=== PATIENT | female | born 1960 | race Caucasian/White ===

== ENCOUNTER → 2020-01-02 08:54 | Outpatient (BNVA) | payer MEDICARE, MEDICAID, SELFPAY | PROVIDERS: PCP Internal Medicine Geriatric Medicine; Visit Provider Hospitalist | DX: J44.9 Chronic obstructive pulmonary disease, unspecified (principal); R91.8 Other nonspecific abnormal finding of lung field; J18.9 Pneumonia, unspecified organism | CPT/HCPCS: 99214 ==

== ENCOUNTER → 2020-01-12 09:45 | Outpatient (REF) | payer MEDICARE, MEDICAID, SELFPAY | LOC: HO.SL 09:45 | PROVIDERS: PCP Internal Medicine Geriatric Medicine; Visit Provider Hospitalist | DX: G47.33 Obstructive sleep apnea (adult) (pediatric) (principal) | CPT/HCPCS: 95806 ==

== ENCOUNTER → 2020-02-27 14:05 | Outpatient (BNVA) | payer MEDICARE, MEDICAID, SELFPAY | PROVIDERS: PCP Internal Medicine Geriatric Medicine; Referring Provider Internal Medicine Geriatric Medicine; Visit Provider Internal Medicine Endocrinology, Diabetes & Metabolism | DX: E05.90 Thyrotoxicosis, unspecified without thyrotoxic crisis or storm (principal); E04.9 Nontoxic goiter, unspecified; Z87.891 Personal history of nicotine dependence | CPT/HCPCS: 99202 ==

== ENCOUNTER 2020-03-06 12:13 | Outpatient (REF) | payer MEDICARE, MEDICAID, SELFPAY ==
--- NOTE | 2020-03-06 | US_ITS ---
EXAMINATION: US THYROID CLINICAL INFORMATION: Nontoxic goiter. COMPARISON: CT chest 12/14/2019 TECHNIQUE: Linear transducer hernández-scale and color Doppler examination with attention to the region of the thyroid. FINDINGS: SIZE: Measurements of the thyroid lobes and nodules are given in sagittal, anteroposterior and transverse dimensions respectively. Right Thyroid Lobe: 5.4 x 2.4 x 3.4 cm, volume 23.0 mL. Parenchyma: The gland echotexture is heterogeneous. Thyroid vascularity is normal. Left Thyroid Lobe: 5.7 x 1.9 x 2.8 cm, volume 15.9 mL. Parenchyma: The gland echotexture is heterogeneous. Thyroid vascularity is normal. Isthmus: 0.5 cm in maximum AP dimension. RIGHT THYROID LOBE: There is 1 nodule seen. 1. Location: Mid pole. Size: 0.4 x 0.3 x 0.4 cm. Nodule characteristics: Hypoechoic, smoothly marginated with no intranodular flow. 2. Location: Mid pole. Size: 0.6 x 0.5 x 0.6 cm. Nodule characteristics: Hypoechoic, smoothly marginated with intranodular flow. 3. Location: Lower pole. Size: 0.3 x 0.3 x 0.4 cm. Nodule characteristics: Hypoechoic, smoothly marginated with no intranodular flow. ISTHMUS: No nodules. LEFT THYROID LOBE: There are 4 nodules seen. 1. Location: Upper pole. Size: 0.6 x 0.4 x 0.6 cm. Nodule characteristics: Hypoechoic, smoothly marginated with no intranodular flow. 2. Location: Lower pole. Size: 0.7 x 0.6 x 0.8 cm. Nodule characteristics: Hypoechoic, smoothly marginated with intranodular flow. 3. Location: Lower pole. Size: 0.7 x 0.6 x 0.8 cm. Nodule characteristics: Hypoechoic, smoothly marginated with no intranodular flow. 4. Location: Lower pole. Size: 0.9 x 0.6 x 0.8 cm. Nodule characteristics: Hypoechoic, smoothly marginated with no intranodular flow. NODES: No lymphadenopathy is seen in the tissue surrounding the thyroid gland. US/US thyroid IMPRESSION: Subcentimeter bilateral thyroid nodules, nonsuspicious. Thyromegaly likely consistent with multinodular goiter.
[2020-03-06 13:27] LABS: MANUAL DIFF FLAG NO
[2020-03-06 13:30] LABS: Basophils Absolute Auto 0.1 X10*3/uL (0.0-0.2); Basophils Percent Auto 0.4 % (0-2); Eosinophils Absolute Auto 0.1 X10*3/uL (0.0-0.4); Eosinophils Percent Auto 0.4 % (0-4); Hematocrit 48.5 % (37-47); Hemoglobin 15.6 g/dl (12.0-16.0); Imm Gran Pct Auto 0.6 % (0.0-0.4); Lymphocytes Absolute Auto 2.4 X10*3/uL (1.2-4.9); Lymphocytes Percent Auto 14.1 % (20-40); Mean Corpuscular HGB Conc 32.2 g/dl (31.0-35.0); Mean Corpuscular Hemoglobin 27.7 pg (27.0-33.0); Mean Corpuscular Volume 86.1 fL (80-98); Mean Platelet Volume 10.6 fL (9.4-12.3); Neutrophils Absolute Auto 13.1 X10*3/uL (2.0-8.3); Neutrophils Percent Auto 78.5 % (45-73); Platelet Count 334 X10*3/uL (160-400); Red Blood Count 5.63 X10*6/uL (4.20-5.50); Red Cell Distribution Width 12.9 % (11.0-16.0); White Blood Count 16.7 X10*3/uL (4.8-10.8)
[2020-03-06 14:06] LABS: Alanine Aminotransferase 31 U/L (0-31); Albumin Level 3.9 g/dL (3.5-5.0); Alkaline Phosphatase 99 U/L (39-117); Aspartate Amino Transferase 16 U/L (5-31); Bilirubin Direct 0.3 mg/dL (0.0-0.5); Bilirubin Total 0.6 mg/dL (0.0-1.0); Total Protein 6.8 g/dL (6.5-8.0)
[2020-03-06 14:27] LABS: Free T4 (Free Thyroxine) 1.83 ng/dL (0.71-1.85); Thyroid Stimulating Hormone 0.01 uIU/mL (0.32-4.0); Vitamin D 25-OH Total 9.7 ng/mL (>30)
[2020-03-08 01:33] LABS: Thyroglobulin Antibodies <1 IU/mL (< or = 1); Thyroid Peroxidase Antibodies <1 IU/mL (<9)
[2020-03-08 17:32] LABS: Triiodothyronine T3 Total 145 ng/dL (76-181)
[2020-03-12 14:52] LABS: Thyroid Stimulating Immunoglob <89 % baseline (<140)
[2020-03-14 01:03] LABS: Thyrotropin Receptor Antibody <1.00 IU/L (<=2.00)
== END 2020-03-06 12:14 | disposition home or self-care (01) ==
LOC: HO.US 12:13
PROVIDERS: Absent Provider Internal Medicine Endocrinology, Diabetes & Metabolism; PCP Internal Medicine Geriatric Medicine; Visit Provider Internal Medicine Geriatric Medicine
DX: E04.9 Nontoxic goiter, unspecified (principal); E05.90 Thyrotoxicosis, unspecified without thyrotoxic crisis or storm
CPT/HCPCS: 36415; 76536; 80076; 82306; 83520; 84439; 84443; 84445; 84480; 85025; 86376; 86800

== ENCOUNTER → 2020-03-09 09:45 | Outpatient (BNVA) | payer MEDICARE, MEDICAID, SELFPAY | PROVIDERS: PCP Internal Medicine Geriatric Medicine; Visit Provider Hospitalist | DX: J44.9 Chronic obstructive pulmonary disease, unspecified (principal); J18.9 Pneumonia, unspecified organism; R91.8 Other nonspecific abnormal finding of lung field | CPT/HCPCS: 99212 ==

== ENCOUNTER 2020-03-12 10:08 | Outpatient (REF) | payer MEDICARE, MEDICAID, SELFPAY ==
--- NOTE | 2020-03-12 10:30 | MR_ITS ---
MR LUMBAR SPINE WITHOUT CONTRAST CLINICAL INFORMATION: Radiculopathy of the left leg. COMPARISON: Lumbar spine MRI 05/11/2012 could not be retrieved from the archive at the time of dictation. TECHNIQUE: MRI of the lumbar spine was obtained using routine sequences without contrast. FINDINGS: There are 5 nonrib-bearing lumbar-type vertebral bodies. Lumbar alignment is normal. The vertebral body heights are maintained. There is moderate to severe disc volume loss at L5-S1 and the remaining disc volumes are preserved. There is disc desiccation at all lumbar levels with the exception of L3 on L4. There Modic type I endplate signal changes at L5-S1. There is no additional bone marrow edema. There are no acute fractures. Conus terminates at the L2 level. Bilateral perinephric stranding. Right-sided parapelvic cysts. Shallow central disc protrusions at T11-T12 and T12-L1 mildly narrow the central canal. L1-L2: Small annular disc bulge and mild bilateral facet arthropathy. No central canal stenosis and no foraminal stenosis. L2-L3: Diffuse annular disc bulge and mild to moderate bilateral facet arthropathy. No central canal stenosis. Mild foraminal encroachment bilaterally. L3-L4: There is a annular disc bulge with a superimposed left paracentral disc protrusion that compresses the traversing left L4 nerve root within the left subarticular zone. Mild narrowing of the central canal and mild bilateral foraminal encroachment. L4-L5: Broad-based left paracentral disc protrusion results in posterior deflection of the traversing left L5 nerve root within the left subarticular zone. Background annular disc bulge. Dorsal annular fissure. Mild narrowing of the central canal. Mild to moderate left and mild right foraminal stenosis L5-S1: Broad-based right paracentral disc protrusion compresses the traversing right greater than left S1 nerve roots within the subarticular zones disc osteophyte and facet arthropathy result in severe left and mild to moderate right foraminal stenosis with compression of the exiting left L5 nerve root. 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 MR/MR lumbar spine wo con IMPRESSION: - At L3-L4, a left paracentral disc protrusion compresses the traversing left L4 nerve root within the left subarticular zone. - At L4-L5, a left paracentral disc protrusion results in posterior deflection of the traversing left L5 nerve root within the left subarticular zone. Dorsal annular fissure. - At L5-S1, a broad-based right paracentral disc protrusion compresses the traversing right greater than left S1 nerve roots within the subarticular zones and multifactorial degenerative changes result in severe left and mild to moderate right foraminal stenosis with compression of the exiting left L5 nerve root. 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 Modic type I endplate signal changes at this level.
== END 2020-03-12 10:09 | disposition home or self-care (01) ==
LOC: HO.MRI 10:08
PROVIDERS: Visit Provider Internal Medicine Geriatric Medicine
DX: M54.10 Radiculopathy, site unspecified (principal); M79.605 Pain in left leg
CPT/HCPCS: 72148

== ENCOUNTER → 2020-04-27 10:07 | Outpatient (BNVA) | payer MEDICARE, MEDICAID, SELFPAY | PROVIDERS: PCP Internal Medicine Geriatric Medicine; Visit Provider Internal Medicine Endocrinology, Diabetes & Metabolism | DX: E05.90 Thyrotoxicosis, unspecified without thyrotoxic crisis or storm (principal); E04.2 Nontoxic multinodular goiter; E55.9 Vitamin D deficiency, unspecified | CPT/HCPCS: 99212 ==

== ENCOUNTER 2020-04-27 11:01 | Outpatient (REF) | payer MEDICARE, MEDICAID, SELFPAY ==
[2020-04-27 15:02] LABS: Free T4 (Free Thyroxine) 1.57 ng/dL (0.71-1.85); Thyroid Stimulating Hormone 0.01 uIU/mL (0.32-4.0)
[2020-04-28 09:02] LABS: Triiodothyronine T3 Total 160 ng/dL (76-181)
== END 2020-04-27 11:02 | disposition home or self-care (01) ==
LOC: HO.10HDL 11:01
PROVIDERS: Visit Provider Internal Medicine Endocrinology, Diabetes & Metabolism
DX: E05.90 Thyrotoxicosis, unspecified without thyrotoxic crisis or storm (principal); E04.9 Nontoxic goiter, unspecified
CPT/HCPCS: 36415; 84439; 84443; 84480; 99212

== ENCOUNTER → 2020-05-09 10:04 | Outpatient (REF) | payer MEDICARE, MEDICAID, SELFPAY ==
--- NOTE | ~2020-05-09 | NM_ITS ---
EXAMINATION: NM THYROID UPTAKE AND SCAN CLINICAL INFORMATION: Thyrotoxicosis, unspecified. COMPARISON: Thyroid ultrasound dated 03/06/2020 TECHNIQUE: Following the oral administration of 269 microcuries of I-123 sodium iodide, thyroid uptake was performed and expressed as a percentage of the administrated dose. Gamma scintillation camera images of the thyroid in the anterior and right and left anterior oblique views were obtained using a pinhole collimator following the administration of 10 mCi Tc-99m pertechnetate. FINDINGS: The uptake is 3.7% at 2 hours and 9.5% at 24 hours. Imaging of the gland demonstrates heterogeneous pertechnetate uptake. Some focal excess in the upper pole of the right. The iodine imaging also demonstrates a heterogeneous appearance which matches the technetium with the exception of the upper pole right. No cold defect but no convincing evidence for excess activity. NM/NM thyroid w uptake IMPRESSION: Normal uptake at 2 hours. Borderline low/normal uptake at 24 hours. Heterogeneous appearance to the gland as described above which may well correlate with multinodular gland described on ultrasound versus a state of thyroiditis Given the clinical indication, findings may be consistent with an element of subacute or painless thyroiditis, factitious thyroiditis, medication etiology such as amiodarone, or early Otilia's disease.
== END ==
LOC: HO.NUCMED 10:04
PROVIDERS: Visit Provider Internal Medicine Endocrinology, Diabetes & Metabolism
DX: E05.90 Thyrotoxicosis, unspecified without thyrotoxic crisis or storm (principal); E04.9 Nontoxic goiter, unspecified
CPT/HCPCS: 78014; A9512; A9516

== ENCOUNTER 2020-05-24 21:41 | Emergency (ER) | payer MEDICARE, MEDICAID, SELFPAY ==
--- NOTE | ~2020-05-24 | XR_ITS ---
EXAMINATION: XR CHEST CLINICAL INFORMATION: Chest pain COMPARISON: Chest radiograph 12/24/[address] 12/14/2019 TECHNIQUE: 2 views of the chest were obtained. FINDINGS: No significant abnormality is noted involving the heart, lungs, mediastinum, bony thorax or soft tissues. A prominent epicardial fat pad is present. XR/XR chest 2V IMPRESSION: Normal exam
[2020-05-24 21:45] VITALS: BP 151/83; PULSE 101; RESP 20; TEMP 36.9; O2SAT 97; BMI 29.9
--- NOTE | 2020-05-24 22:39 | ECG_ITS ---
Test Reason : CP Blood Pressure : / mmHG Vent. Rate : 101 BPM Atrial Rate : 101 BPM P-R Int : 146 ms QRS Dur : 092 ms QT Int : 342 ms P-R-T Axes : 069 022 036 degrees QTc Int : 443 ms Sinus tachycardia Incomplete right bundle branch block Borderline ECG When compared with ECG of 24-DEC-2019 05:30, No significant change was found Referred By: Kely June Electronically Signed By:DAVI KEEN MD
--- NOTE | 2020-05-24 23:53 | ED_ITS ---
HPI - Chest Pain General Chief Complaint: Chest Pain Stated Complaint: Chest pain Time Seen by Provider: 05/24/20 22:38 Source: patient Mode of arrival: ambulatory History of Present Illness HPI narrative: This is a 59-year-old female who states that yesterday she was experiencing some substernal discomfort that was worse with laying back and then proceeded to have an isolated episode nonbloody vomiting but states that since that time her appetite has been decreased. She states that she had sleeps with 3 pillows behind her last night due to the discomfort she experienced on laying back. Otherwise, she denies fevers, chills, shortness of breath and states that the chest pain now radiates along the left lower diaphragmatic area into her back and up into her left shoulder. This is not been associated with any diarrhea, urinary symptoms. Related Data Home Medications Medication Instructions Recorded Confirmed aspirin 81 mg tablet,delayed 81 mg PO DAILY 12/24/19 04/27/20 release atorvastatin 80 mg tablet 80 mg PO BEDTIME 12/24/19 04/27/20 carvedilol 6.25 mg tablet 6.25 mg PO BID 12/24/19 04/27/20 cetirizine 10 mg tablet 10 mg PO DAILY 12/24/19 04/27/20 cyclobenzaprine 5 mg tablet 5 mg PO TID PRN 12/24/19 04/27/20 gabapentin 100 mg capsule 100 mg PO BEDTIME 12/24/19 04/27/20 ipratropium 0.5 mg-albuterol 3 mg ml INHALATION QID 12/24/19 04/27/20 (2.5 mg base)/3 mL nebulization soln montelukast 10 mg tablet 10 mg PO BEDTIME 12/24/19 04/27/20 omeprazole 20 mg capsule,delayed 20 mg PO BID 12/24/19 04/27/20 release oxycodone-acetaminophen 7.5 mg-325 1 tab PO TID PRN 12/24/19 04/27/20 mg tablet pen needle, diabetic 32 gauge x #50 ea 12/24/19 04/27/20 prednisone 5 mg tablet 5 mg PO DAILY 12/24/19 04/27/20 albuterol sulfate 90 mcg/actuation 2 puff INHALATION Q4-6H PRN 01/02/20 04/27/20 aerosol inhaler dulaglutide 1.5 mg/0.5 mL 1.5 mg SUBCUT QWEEK 01/02/20 04/27/20 subcutaneous pen injector insulin aspart U-100 100 unit/mL See Rx Instructions SUBCUT TID ml 01/02/20 04/27/20 (3 mL) subcutaneous pen insulin glargine 100 unit/mL (3 35 unit SUBCUT BID ml 01/02/20 04/27/20 mL) subcutaneous pen ipratropium 20 mcg-albuterol 100 2 puff INHALATION QID g 01/02/20 04/27/20 mcg/actuation mist for inhalation lactulose 10 gram/15 mL oral 15 ml PO DAILY PRN 01/02/20 04/27/20 solution blood sugar diagnostic #10 ea 02/27/20 04/27/20 naproxen 500 mg tablet 500 mg PO BID 03/09/20 04/27/20 budesonide 0.5 mg/2 mL suspension mg INHALATION DAILY 04/27/20 04/27/20 for nebulization Previous Rx's Medication Instructions Recorded fluticasone fur. 100 mcg-umeclid 1 inh INHALATION DAILY 30 Days #60 01/02/20 62.5 mcg-vilant 25 mcg ea inhalat.powder trazodone 50 mg tablet 50 mg PO BEDTIME PRN #30 tab 01/02/20 roflumilast 500 mcg tablet 500 mcg PO DAILY 30 Days #30 tab 01/05/20 umeclidinium 62.5 mcg-vilanterol 1 inh INHALATION DAILY #60 ea 01/11/20 25 mcg/actuation powdr for inhalation fluticasone fur. 200 mcg-umeclid 1 inh INHALATION DAILY 30 Days #60 04/23/20 62.5 mcg-vilant 25 mcg ea inhalat.powder cholecalciferol (vitamin D3) 50 50 mcg PO DAILY 90 Days #90 cap 04/27/20 mcg (2,000 unit) capsule methimazole 5 mg tablet 5 mg PO DAILY 30 Days #30 tab 04/27/20 Allergies Allergy/AdvReac Type Severity Reaction Status Date / Time HANK Inhibitors Allergy Severe ANGIO Verified 03/09/20 10:03 [HANK INHIBITORS] EDEMA enalapril Allergy Severe Anaphylaxis Verified 03/09/20 10:03 erythromycin base Allergy Severe HIVES ALL Verified 12/11/20 10:03 [ERYTHROMYCIN BASE] OVER hydromorphone [From DILAUDID] AdvReac Severe TINGLING, Verified 03/09/20 10:03 PT DOES NOT LIKE THE FEELING MED GIVES HER Review of Systems Review of Systems: Pertinent positives and negatives as stated in HPI 10 point review systems is otherwise negative. [facility] Past Medical History Source: nursing notes reviewed Medical History Atelectasis COPD (chronic obstructive pulmonary disease) Goiter Multinodular goiter Pneumonia Pulmonary nodules Subclinical hyperthyroidism Vitamin D deficiency Surgical History History of cholecystectomy History of tonsillectomy History of ureterostomy S/P lumpectomy, right breast Family History Family History Father No problems noted. Mother No problems noted. Paternal Aunt Diabetes Social History Social History Smoking Status: Former smoker Tobacco Type: Cigarette Advance Directives: No Physical Exam Vital Signs: Vital Signs: Last Vital Signs Temp 98.5 F 05/24/20 21:45 Pulse 84 05/25/20 01:16 Resp 20 05/25/20 01:16 BP 117/50 L 05/25/20 01:16 Pulse Ox 96 05/25/20 01:16 Body Mass Index 29.9 VITAL SIGNS: Reviewed. GENERAL: Well developed, well nourished, in no acute distress. HEAD: Normocephalic/atraumatic, EYES: PERRLA, EOMI NOSE: Nares patent bilateral OROPHARYNX: no oral lesions noted, posterior pharynx clear NECK: Supple, no adenopathy LUNGS: Normal breath sounds. No adventitious sounds or accessory muscle use. SpO2<97> CARDIOVASCULAR: Regular rate and rhythm without noted murmurs, no JVD or lower extremity edema. ABDOMEN: Soft, non-tender, non-distended with bowel sounds. SKIN: Inspection of the skin reveals no rashes NEUROLOGIC: Alert and oriented x 4. Course Course Course Narrative: This is a 59-year-old female with history and clinical presentation suggestive of possible costochondritis, but patient does have hist ory goiter which may be contributing to some of her symptoms and less likely considered to be pericarditis and will rule out other cardiopulmonary etiologies. Provided patient with Tylenol and GI cocktail. Review of all investigations shows mild leukocytosis likely secondary to patient's recent steroid injection for sciatica as chest x-ray and urinalysis are negative for evidence of infection and abdominal exam is benign. Low troponin is noted to be above normal this is consistent with prior troponin level when compared to 11/2019 and there are no acute changes on EKG. The latter taken in conjunction with patient's history lead to low clinical suspicion for cardiac etiology. All results and findings were discussed with patient at bedside. On re-evaluation patient's symptoms have completely resolved after receiving Tylenol and GI cocktail. 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 MDM - Chest Pain Lab Data Result diagrams: 05/25/20 00:07 05/25/20 00:07 Labs: Lab Results 05/25/20 05/25/20 05/25/20 Range/Units 00:07 00:07 00:07 WBC 12.9 H (4.8-10.8) X10*3/uL RBC 5.28 (4.20-5.50) X10*6/uL Hgb 14.9 (12.0-16.0) g/dl Hct 44.9 (37-47) % MCV 85.0 (80-98) fL MCH 28.2 (27.0-33.0) pg MCHC 33.2 (31.0-35.0) g/dl RDW 13.4 (11.0-16.0) % Plt Count 230 D (160-400) X10*3/uL MPV 10.0 (9.4-12.3) fL Immature Gran % (Auto) 0.4 (0.0-0.4) % Neut % (Auto) 57.1 (45-73) % Lymph % (Auto) 32.9 (20-40) % Burleigh % (Auto) 6.9 (2-11) % Eos % (Auto) 2.2 (0-4) % Baso % (Auto) 0.5 (0-2) % Lymph # (Auto) 4.3 (1.2-4.9) X10*3/uL Burleigh # (Auto) 0.9 (0.1-1.2) X10*3/uL Eos # (Auto) 0.3 (0.0-0.4) X10*3/uL Baso # (Auto) 0.1 (0.0-0.2) X10*3/uL Abs Immat Gran (auto) 0.05 H (0.00-0.03) X10*3/uL Absolute Neuts (auto) 7.4 (2.0-8.3) X10*3/uL Absolute Nucleated RBC 0.000 (0.0-0.012) X10*3/uL Nucleated RBC % (auto) 0.0 (0.0-0.2) /100WBC Sodium 144 (135-145) mmol/L Potassium 4.2 (3.3-5.1) mmol/L Chloride 108 (96-108) mmol/L Carbon Dioxide 25 (22-29) mmol/L Anion Gap 15 (12-20) BUN 14 (9-16) mg/dL Creatinine 0.78 (0.5-1.4) mg/dL Estim Creat Clear Calc 80.9 Estimated GFR > 60 Random Glucose 208 H (60-115) mg/dL Calcium 9.2 (8.4-10.2) mg/dL Total Bilirubin 0.7 (0.0-1.0) mg/dL AST 13 (5-31) U/L ALT 23 (0-31) U/L Alkaline Phosphatase 78 D (39-117) U/L Troponin I High Sens 6.2 (<3.5-17.0) ng/L Total Protein 6.4 L (6.5-8.0) g/dL Albumin 3.7 (3.5-5.0) g/dL Lipase (8-78) U/L Urine Color Urine Appearance Urine pH (5.0-8.0) Ur Specific Ullin (1.005-1.025) Urine Protein (NEG-TRACE) MG/DL Urine Glucose (UA) (NEG) MG/DL Urine Ketones (NEG) MG/DL Urine Blood (NEG) Urine Nitrite (NEG) Ur Leukocyte Esterase (NEG) Urine RBC (0) /HPF Urine WBC (0-4) /HPF Ur Squamous Epith Cells /LPF Calcium Oxalate Crystal /LPF Uric Acid Crystals /LPF Urine Bacteria /LPF Urine Mucus /LPF 05/25/20 05/25/20 Range/Units 00:07 01:36 WBC (4.8-10.8) X10*3/uL RBC (4.20-5.50) X10*6/uL Hgb (12.0-16.0) g/dl Hct (37-47) % MCV (80-98) fL MCH (27.0-33.0) pg MCHC (31.0-35.0) g/dl RDW (11.0-16.0) % Plt Count (160-400) X10*3/uL MPV (9.4-12.3) fL Immature Gran % (Auto) (0.0-0.4) % Neut % (Auto) (45-73) % Lymph % (Auto) (20-40) % Burleigh % (Auto) (2-11) % Eos % (Auto) (0-4) % Baso % (Auto) (0-2) % Lymph # (Auto) (1.2-4.9) X10*3/uL [place]leigh # (Auto) (0.1-1.2) X10*3/uL Eos # (Auto) (0.0-0.4) X10*3/uL Baso # (Auto) (0.0-0.2) X10*3/uL Abs Immat Gran (auto) (0.00-0.03) X10*3/uL Absolute Neuts (auto) (2.0-8.3) X10*3/uL Absolute Nucleated RBC (0.0-0.012) X10*3/uL Nucleated RBC % (auto) (0.0-0.2) /100WBC Sodium (135-145) mmol/L Potassium (3.3-5.1) mmol/L Chloride (96-108) mmol/L Carbon Dioxide (22-29) mmol/L Anion Gap (12-20) BUN (9-16) mg/dL Creatinine (0.5-1.4) mg/dL Estim Creat Clear Calc Estimated GFR Random Glucose (60-115) mg/dL Calcium (8.4-10.2) mg/dL Total Bilirubin (0.0-1.0) mg/dL AST (5-31) U/L ALT (0-31) U/L Alkaline Phosphatase (39-117) U/L Troponin I High Sens (<3.5-17.0) ng/L Total Protein (6.5-8.0) g/dL Albumin (3.5-5.0) g/dL Lipase 30 (8-78) U/L Urine Color YELLOW Urine Appearance CLEAR Urine pH 5.5 (5.0-8.0) Ur Specific Ullin >= 1.030 H (1.005-1.025) Urine Protein NEG (NEG-TRACE) MG/DL Urine Glucose (UA) 500 H (NEG) MG/DL Urine Ketones NEG (NEG) MG/DL Urine Blood 2+ H (NEG) Urine Nitrite NEG (NEG) Ur Leukocyte Esterase NEG (NEG) Urine RBC 0-2 (0) /HPF Urine WBC 1-4 (0-4) /HPF Ur Squamous Epith Cells 3+ /LPF Calcium Oxalate Crystal TRACE /LPF Uric Acid Crystals TRACE /LPF Urine Bacteria TRACE /LPF Urine Mucus 1+ /LPF Discharge Plan Discharge Clinical Impression: Atypical chest pain Gastroesophageal reflux disease Qualifiers: Esophagitis presence: esophagitis presence not specified Qualified Code(s): K21.9 - Gastro-esophageal reflux disease without esophagitis Patient Disposition: Home, Self-Care Instructions: Chest Pain (ED), Diet for Stomach Ulcers and Gastritis (ED), Gastroesophageal Reflux Disease (ED) Additional Instructions: 1. Resume all home medications as prescribed. 2. Recommend supplementing current omeprazole dosing schedule with Maalox taken prior to meals. 3. Please follow-up with Dr. Kaplan for re-evaluation regarding your GERD. 4. Please follow-up with your primary care provider as well for re-evaluation. To not hesitate to return to the emergency department for any acute worsening of her symptoms or if more concerning symptoms occur such as shortness of breath, fever, chills. Prescriptions: No Action Daliresp 500 mcg tablet 500 mcg PO DAILY 30 Days Qty: 30 RF: 11 Anoro Ellipta 62.5-25 mcg/actuation blister with device 1 inh inhalation DAILY Qty: 60 RF: 11 Trelegy Ellipta 200-62.5-25 mcg blister with device 1 inh inhalation DAILY 30 Days Qty: 60 RF: 12 methimazole 5 mg tablet 5 mg PO DAILY 30 Days Qty: 30 RF: 5 (DME) FreeStyle Lite Strips Strip See Rx Instructions ea Not Applicable TID Qty: 10 RF: 0 cholecalciferol (vitamin D3) 50 mcg (2,000 unit) capsule 50 mcg PO DAILY 90 Days Qty: 90 RF: 1 Trulicity 1.5 mg/0.5 mL pen injector 1.5 mg subcut QWEEK RF: 0 insulin aspart U-100 [Novolog Flexpen U-100 Insulin] 100 unit/mL (3 mL) insulin pen See Rx Instructions subcut TID RF: 0 Lantus Solostar U-100 Insulin 100 unit/mL (3 mL) insulin pen 35 unit subcut BID RF: 0 lactulose 10 gram/15 mL solution 15 ml PO DAILY PRN (Reason: constipation) RF: 0 albuterol sulfate [ProAir HFA] 90 mcg/actuation HFA aerosol inhaler 2 puff inhalation Q4-6H PRNRF: 0 Combivent Respimat 20-100 mcg/actuation mist 2 puff inhalation QID RF: 0 Trelegy Ellipta 100-62.5-25 mcg blister with device 1 inh inhalation DAILY 30 Days Qty: 60 RF: 11 trazodone 50 mg tablet 50 mg PO BEDTIME PRN (Reason: sleep) Qty: 30 RF: 11 oxycodone-acetaminophen 7.5-325 mg tablet 1 tab PO TID PRNRF: 0 omeprazole 20 mg capsule,delayed release(DR/EC) 20 mg PO BID RF: 0 aspirin 81 mg tablet,delayed release (DR/EC) 81 mg PO DAILY RF: 0 cyclobenzaprine 5 mg tablet 5 mg PO TID PRNRF: 0 prednisone 5 mg tablet 5 mg PO DAILY RF: 0 carvedilol 6.25 mg tablet 6.25 mg PO BID RF: 0 gabapentin 100 mg capsule 100 mg PO BEDTIME RF: 0 atorvastatin 80 mg tablet 80 mg PO BEDTIME RF: 0 (DME) pen needle, diabetic 32 gauge x 5/32 needle See Rx Instructions ea .ROUTE .MEDSUPPLY Qty: 50 RF: 0 ipratropium-albuterol 0.5 mg-3 mg(2.5 mg base)/3 mL solution for nebulization inhalation QID RF: 0 montelukast 10 mg tablet 10 mg PO BEDTIME RF: 0 cetirizine 10 mg tablet 10 mg PO DAILY RF: 0 budesonide 0.5 mg/2 mL suspension for nebulization inhalation DAILY RF: 0 naproxen 500 mg tablet 500 mg PO BID RF: 0 Referrals: Bobby David MD [Primary Care Provider] - 2 days (Re-evaluation outpatient management after seen in the emergency department and suspect patient experienced acute GERD symptoms. Recommended that patient follow-up with GI as well.)
[2020-05-25 00:14] LABS: Basophils Absolute Auto 0.1 X10*3/uL (0.0-0.2); Basophils Percent Auto 0.5 % (0-2); Eosinophils Absolute Auto 0.3 X10*3/uL (0.0-0.4); Eosinophils Percent Auto 2.2 % (0-4); Hematocrit 44.9 % (37-47); Hemoglobin 14.9 g/dl (12.0-16.0); Imm Gran Abs Auto 0.05 X10*3/uL (0.00-0.03); Imm Gran Pct Auto 0.4 % (0.0-0.4); Lymphocytes Absolute Auto 4.3 X10*3/uL (1.2-4.9); Lymphocytes Percent Auto 32.9 % (20-40); MANUAL DIFF FLAG NO; Mean Corpuscular HGB Conc 33.2 g/dl (31.0-35.0); Mean Corpuscular Hemoglobin 28.2 pg (27.0-33.0); Monocytes Absolute Auto 0.9 X10*3/uL (0.1-1.2); Monocytes Percent Auto 6.9 % (2-11); Neutrophils Absolute Auto 7.4 X10*3/uL (2.0-8.3); Neutrophils Percent Auto 57.1 % (45-73); Platelet Count 230 X10*3/uL (160-400); Red Blood Count 5.28 X10*6/uL (4.20-5.50); Red Cell Distribution Width 13.4 % (11.0-16.0); White Blood Count 12.9 X10*3/uL (4.8-10.8)
[2020-05-25 00:38] LABS: Lipase 30 U/L (8-78)
[2020-05-25 00:43] LABS: Troponin-I High Sensitivity 6.2 ng/L (<3.5-17.0)
[2020-05-25 00:49] LABS: Alanine Aminotransferase 23 U/L (0-31); Albumin Level 3.7 g/dL (3.5-5.0); Alkaline Phosphatase 78 U/L (39-117); Anion Gap 15 (12-20); Aspartate Amino Transferase 13 U/L (5-31); Bilirubin Total 0.7 mg/dL (0.0-1.0); Blood Urea Nitrogen 14 mg/dL (9-16); Calcium 9.2 mg/dL (8.4-10.2); Carbon Dioxide 25 mmol/L (22-29); Chloride 108 mmol/L (96-108); Creatinine Clr Calc Pharmacy 80.9; Estimated Glomerular Filt Rate > 60; Glucose Random 208 mg/dL (60-115); Potassium 4.2 mmol/L (3.3-5.1); Sodium 144 mmol/L (135-145); Total Protein 6.4 g/dL (6.5-8.0)
[2020-05-25 01:16] VITALS: BP 117/50; PULSE 84; RESP 20; O2SAT 96
[2020-05-25] MEDS: Acetaminophen 325 MG TABLET 975 MG PO (01:31)
[2020-05-25] MEDS: Magnesium Hydrox/Alum Hydrox 30 ML ORAL.SUSP PO (01:33)
[2020-05-25] MEDS: Lidocaine HCl Viscous 2 % 15 ML SOLUTION 10 ML MUCOUS MEM (01:33)
[2020-05-25 01:58] LABS: Glucose Urine UA 500 MG/DL (NEG); Leukocyte Esterase Urine NEG (NEG); Nitrite Urine NEG (NEG); PH 5.5 (5.0-8.0); Specific Gravity - Urine >= 1.030 (1.005-1.025); Urine Blood 2+ (NEG); Urine Ketones NEG (NEG); Urine Protein NEG (NEG-TRACE)
[2020-05-25 02:00] VITALS: BP 120/55; PULSE 81; RESP 16; TEMP 36.7; O2SAT 97
[2020-05-25 02:12] LABS: Appearance Urine CLEAR; Color Urine YELLOW
[2020-05-25 02:13] LABS: Bacteria Urine TRACE /LPF; Calcium Oxalate Crystals Urine TRACE /LPF; Mucus Urine 1+ /LPF; RBC Urine 0-2 /HPF (0); Squamous Epithelial Cell Urine 3+ /LPF; Uric Acid Crystals Urine TRACE /LPF
== END 2020-05-25 02:50 | disposition home or self-care (01) ==
PROVIDERS: Emergency Provider Student in an Organized Health Care Education/Training Program; PCP Internal Medicine Geriatric Medicine
DX: R07.9 Chest pain, unspecified (principal); K21.9 Gastro-esophageal reflux disease without esophagitis; J44.9 Chronic obstructive pulmonary disease, unspecified; F17.210 Nicotine dependence, cigarettes, uncomplicated; Z79.82 Long term (current) use of aspirin; Z79.899 Other long term (current) drug therapy; Z87.01 Personal history of pneumonia (recurrent)
CPT/HCPCS: 36415; 71046; 80053; 81001; 81003; 83690; 84484; 85025; 93005; 99283; 99284

== ENCOUNTER 2020-06-01 10:41 | Outpatient (REF) | payer MEDICARE, MEDICAID, SELFPAY ==
[2020-06-01 11:40] LABS: MANUAL DIFF FLAG NO
[2020-06-01 11:56] LABS: Basophils Absolute Auto 0.1 X10*3/uL (0.0-0.2); Basophils Percent Auto 0.9 % (0-2); Eosinophils Absolute Auto 0.2 X10*3/uL (0.0-0.4); Eosinophils Percent Auto 2.1 % (0-4); Hematocrit 47.8 % (37-47); Hemoglobin 15.5 g/dl (12.0-16.0); Imm Gran Abs Auto 0.07 X10*3/uL (0.00-0.03); Imm Gran Pct Auto 0.6 % (0.0-0.4); Lymphocytes Percent Auto 36.1 % (20-40); Mean Corpuscular HGB Conc 32.4 g/dl (31.0-35.0); Mean Corpuscular Hemoglobin 28.3 pg (27.0-33.0); Mean Corpuscular Volume 87.2 fL (80-98); Mean Platelet Volume 10.6 fL (9.4-12.3); Monocytes Absolute Auto 0.8 X10*3/uL (0.1-1.2); Monocytes Percent Auto 7.1 % (2-11); Neutrophils Absolute Auto 5.8 X10*3/uL (2.0-8.3); Neutrophils Percent Auto 53.2 % (45-73); Platelet Count 267 X10*3/uL (160-400); Red Blood Count 5.48 X10*6/uL (4.20-5.50); Red Cell Distribution Width 13.4 % (11.0-16.0); White Blood Count 10.9 X10*3/uL (4.8-10.8)
[2020-06-01 12:18] LABS: Alanine Aminotransferase 22 U/L (0-31); Albumin Level 3.7 g/dL (3.5-5.0); Alkaline Phosphatase 87 U/L (39-117); Aspartate Amino Transferase 13 U/L (5-31); Bilirubin Direct 0.4 mg/dL (0.0-0.5); Bilirubin Total 0.7 mg/dL (0.0-1.0); Total Protein 6.3 g/dL (6.5-8.0)
[2020-06-01 12:38] LABS: Free T4 (Free Thyroxine) 1.57 ng/dL (0.71-1.85); Thyroid Stimulating Hormone < 0.01 uIU/mL (0.32-4.0)
[2020-06-02 06:12] LABS: Triiodothyronine T3 Total 157 ng/dL (76-181)
== END 2020-06-01 10:42 | disposition home or self-care (01) ==
LOC: HO.LAB 10:41
PROVIDERS: PCP Internal Medicine Geriatric Medicine; Visit Provider Internal Medicine Endocrinology, Diabetes & Metabolism
DX: E05.90 Thyrotoxicosis, unspecified without thyrotoxic crisis or storm (principal)
CPT/HCPCS: 36415; 80076; 84439; 84443; 84480; 85025

== ENCOUNTER 2020-06-19 11:44 | Outpatient (REF) | payer MEDICARE, MEDICAID, SELFPAY ==
[2020-06-19 13:48] LABS: Alanine Aminotransferase 17 U/L (0-31); Albumin Level 3.6 g/dL (3.5-5.0); Alkaline Phosphatase 85 U/L (39-117); Amylase 33 U/L (28-100); Aspartate Amino Transferase 17 U/L (5-31); Bilirubin Direct 0.3 mg/dL (0.0-0.5); Bilirubin Total 0.9 mg/dL (0.0-1.0); Lipase 14 U/L (8-78); Total Protein 6.1 g/dL (6.5-8.0)
[2020-06-19 14:10] LABS: Thyroid Stimulating Hormone < 0.01 uIU/mL (0.32-4.0)
[2020-06-19 14:19] LABS: Free T4 (Free Thyroxine) 1.26 ng/dL (0.71-1.85)
[2020-06-20 18:41] LABS: Triiodothyronine T3 Total 150 ng/dL (76-181)
== END 2020-06-19 11:45 | disposition home or self-care (01) ==
LOC: HO.LAB 11:44
PROVIDERS: PCP Internal Medicine Geriatric Medicine; Visit Provider Internal Medicine Endocrinology, Diabetes & Metabolism
DX: E05.90 Thyrotoxicosis, unspecified without thyrotoxic crisis or storm (principal)
CPT/HCPCS: 36415; 80076; 82150; 83690; 84439; 84443; 84480

== ENCOUNTER 2020-06-29 17:20 | Emergency (ER) | payer MEDICARE, MEDICAID, SELFPAY ==
--- NOTE | ~2020-06-29 | CT_ITS ---
EXAMINATION: CT ABDOMEN AND PELVIS WITHOUT CONTRAST CLINICAL INFORMATION: Abdominal pain COMPARISON: CT abdomen pelvis 01/27/2018 TECHNIQUE: Multidetector volumetric imaging was performed from the superior aspect of the liver through the pubic symphysis. Sagittal and coronal reformatted images were obtained on the technologist's workstation. This CT examination was performed using dose optimization techniques as appropriate, variously including the following: *Automated exposure control *Adjustment of mA and/or kV according to patient size (this includes techniques or standardized protocols for targeted exams where dose is matched to indication/reason for exam; i.e. extremities or head) *Use of iterative reconstruction technique DLP: 552 mGy-cm FINDINGS: LUNG BASES: The visualized lung bases are unremarkable. LIVER, GALLBLADDER, AND BILIARY TREE: Liver is mildly enlarged measuring 17 cm in greatest length. Attenuation is decreased when compared with the spleen suggestive of hepatic steatosis. No focal liver mass or bile duct dilatation is seen. The gallbladder is not present. PANCREAS: Unremarkable. SPLEEN: Unremarkable. ADRENAL GLANDS: Unremarkable. KIDNEYS AND URETERS: The kidneys are normal in size, shape, and attenuation. There is a 6 mm right lower pole renal calculus which has increased in size when compared to the prior study. Again noted is some mild prominence of the right collecting system but no obstruction. No hydronephrosis, hydroureter, or other calculi seen. No perinephric stranding. BLADDER: Unremarkable. GASTROINTESTINAL TRACT: Again seen is submucosal fat infiltration in the right and transverse colon and portions of the left colon which can be indicative of previous colitis. No acute problem is seen. The small and large bowel are otherwise unremarkable. The appendix is unremarkable. ABDOMINAL WALL: No significant hernia is appreciated. A tiny periumbilical hernia seen containing only fat. LYMPH NODES: No retroperitoneal adenopathy is seen. VASCULAR: Aortoiliac calcific plaque is present without aneurysm seen. PELVIC VISCERA: An anteverted uterus is present. An abnormal adnexal mass or free intraperitoneal fluid is not seen. A small 1.7 cm right ovarian cyst is present which previously measured 2 cm. OSSEOUS STRUCTURES: Degenerative changes again seen in the spine most marked at L5-S1. No bony destructive lesions. CT/CT abdomen pelvis wo con IMPRESSION: 1. An acute cause for the patient's abdominal pain has not been found. 2. Incidental note made of mildly enlarged fatty liver, nonobstructing 6 mm right renal calculus and a right ovarian cyst that has decreased in size.
[2020-06-29 17:23] VITALS: BP 155/74; PULSE 110; RESP 14; TEMP 36.7; O2SAT 97; BMI 29.9
--- NOTE | 2020-06-29 18:42 | PC.NURSE ---
Patient awake and alert. Skin pwd. resp even and non labored. patient reports mid abdominal pain w/ N/V/D x 6 weeks. patient states she vomits atleast twice a day and has lost 20lbs. reports dark urine. awaiting initial physician kaylie
[2020-06-29 18:44] VITALS: BP 137/76; PULSE 98; RESP 18
--- NOTE | 2020-06-29 18:57 | ED.NAVMDI ---
HPI - Nausea/Vomiting/Diarrhea General Chief complaint: Nausea/Vomiting/Diarrhea Stated complaint: Vomiting Time Seen by Provider: 06/29/20 18:46 Source: patient Mode of arrival: ambulatory Limitations: no limitations History of Present Illness HPI Narrative: Pleasant 59-year-old female with past medical history significant for insulin-dependent diabetes, obesity, COPD, sleep apnea, coronary artery disease had DC in 2018, chronic low back pain in the setting of sciatic nerve involvement, dyslipidemia, hypertension, and hyperthyroidism states he has a history of it recently been having issues seen her information systems security manager Dr. Carmen and started on methimazole 6+ weeks ago and since then she has seen him couple times and for the same duration of time since she has been on this medication she has had nausea and vomiting and states has continued and unable to keep anything down. States there is cramping like abdominal pain as well. There is no diarrhea. In review of the lab work she has had a TSH on June 01 that was less than 0.01 with free T4 1.57 and T3 of 1.57 on June 19 TSH of less than 0.01 and free T4 1.26 and T3 of 1.50. MD elicited complaint: nausea and vomiting Related Data Home Medications Medication Instructions Recorded Confirmed aspirin 81 mg tablet,delayed 81 mg PO DAILY 12/24/19 04/27/20 release atorvastatin 80 mg tablet 80 mg PO BEDTIME 12/24/19 04/27/20 carvedilol 6.25 mg tablet 6.25 mg PO BID 12/24/19 04/27/20 cetirizine 10 mg tablet 10 mg PO DAILY 12/24/19 04/27/20 cyclobenzaprine 5 mg tablet 5 mg PO TID PRN 12/24/19 04/27/20 gabapentin 100 mg capsule 100 mg PO BEDTIME 12/24/19 04/27/20 ipratropium 0.5 mg-albuterol 3 mg ml INHALATION QID 12/24/19 04/27/20 (2.5 mg base)/3 mL nebulization soln montelukast 10 mg tablet 10 mg PO BEDTIME 12/24/19 04/27/20 omeprazole 20 mg capsule,delayed 20 mg PO BID 12/24/19 04/27/20 release oxycodone-acetaminophen 7.5 mg-325 1 tab PO TID PRN 12/24/19 04/27/20 mg tablet pen needle, diabetic 32 gauge x #50 ea 12/24/19 04/27/20 5/32 prednisone 5 mg tablet 5 mg PO DAILY 12/24/19 04/27/20 albuterol sulfate 90 mcg/actuation 2 puff INHALATION Q4-6H PRN 01/02/20 04/27/20 aerosol inhaler dulaglutide 1.5 mg/0.5 mL 1.5 mg SUBCUT QWEEK 01/02/20 04/27/20 subcutaneous pen injector insulin aspart U-100 100 unit/mL See Rx Instructions SUBCUT TID ml 01/02/20 04/27/20 (3 mL) subcutaneous pen insulin glargine 100 unit/mL (3 35 unit SUBCUT BID ml 01/02/20 04/27/20 mL) subcutaneous pen ipratropium 20 mcg-albuterol 100 2 puff INHALATION QID g 01/02/20 04/27/20 mcg/actuation mist for inhalation lactulose 10 gram/15 mL oral 15 ml PO DAILY PRN 01/02/20 04/27/20 solution blood sugar diagnostic #10 ea 02/27/20 04/27/20 naproxen 500 mg tablet 500 mg PO BID 03/09/20 04/27/20 budesonide 0.5 mg/2 mL suspension mg INHALATION DAILY 04/27/20 04/27/20 for nebulization Previous Rx's Medication Instructions Recorded fluticasone fur. 100 mcg-umeclid 1 inh INHALATION DAILY 30 Days #60 01/02/20 62.5 mcg-vilant 25 mcg ea inhalat.powder trazodone 50 mg tablet 50 mg PO BEDTIME PRN #30 tab 01/02/20 roflumilast 500 mcg tablet 500 mcg PO DAILY 30 Days #30 tab 01/05/20 umeclidinium 62.5 mcg-vilanterol 1 inh INHALATION DAILY #60 ea 01/11/20 25 mcg/actuation powdr for inhalation fluticasone fur. 200 mcg-umeclid 1 inh INHALATION DAILY 30 Days #60 04/23/20 62.5 mcg-vilant 25 mcg ea inhalat.powder cholecalciferol (vitamin D3) 50 50 mcg PO DAILY 90 Days #90 cap 04/27/20 mcg (2,000 unit) capsule methimazole 5 mg tablet 5 mg PO DAILY 30 Days #30 tab 04/27/20 ondansetron HCl [Zofran] 4 mg PO Q8H PRN #10 tab 06/29/20 Allergies Allergy/AdvReac Type Severity Reaction Status Date / Time HANK Inhibitors Allergy Severe ANGIO Verified 03/09/20 10:03 [HANK INHIBITORS] EDEMA enalapril Allergy Severe Anaphylaxis Verified 03/09/20 10:03 erythromycin base Allergy Severe HIVES ALL Verified 03/09/20 10:03 [ERYTHROMYCIN BASE] OVER hydromorphone [From DILAUDID] AdvReac Severe TINGLING, Verified 03/09/20 10:03 PT DOES NOT LIKE THE FEELING MED GIVES HER Review of Systems Review of Systems: Constitutional: No Weight loss, No Fever, No Chills, No Night Sweats, No Fatigue, No Malaise ENT/Mouth: No Hearing loss, No Ear Pain, No Nasal Congestion, No Sinus Pain, No Hoarseness, No sore throat, No Rhinorrhea, No Swallowing Difficulty Eyes: No Eye Pain, No Swelling, No Redness, No Foreign Body, No Discharge, No Vision Changes Cardiovascular: No Chest Pain, No SOB, No Dyspnea on Exertion, No Orthopnea, No Edema, No Palpitations Respiratory: No Cough, No Sputum, No Wheezing, No Smoke Exposure, No Dyspnea Gastrointestinal: As noted in HPI n, No Hematochezia, No Melena Genitourinary: no irregular bleeding, No Dysuria, No Urinary Frequency, No Hematuria, No Urinary Incontinence, No Urgency, No Flank Pain, No Urinary Flow Changes, No Hesitancy Musculoskeletal: No joint pain, No Myalgias, No Joint Swelling Skin: No Skin Lesions, No rash Neuro: No Weakness, No Numbness, No Paresthesias, No Loss of Consciousness, No Dizziness, No Headache Psych: No Anxiety/Panic, No Depression, No Social Issues Heme/Lymph: No Bruising, No Bleeding,No Lymphadenopathy Endocrine: No Polyuria, No Polydipsia, No Temperature Intolerance Yes all other systems are reviewed and are negative [facility] Past Medical History Medical History Atelectasis COPD (chronic obstructive pulmonary disease) Goiter Multinodular goiter Pneumonia Pulmonary nodules Subclinical hyperthyroidism Vitamin D deficiency Surgical History History of cholecystectomy History of tonsillectomy History of ureterostomy S/P lumpectomy, right breast Family History Family History Father No problems noted. Mother No problems noted. Paternal Aunt Diabetes Social History Social History Alcohol intake: never Smoking Status: Current every day smoker Tobacco Type: Cigarette Use of substances other than those prescribed or required for medical reasons: No Advance Directives: No Advance Directives Information Provided: Yes Physical Exam Vital Signs: Vital Signs: Last Vital Signs Temp 98.1 F 06/29/20 17:23 Pulse 98 06/29/20 18:44 Resp 18 06/29/20 18:44 BP 137/76 06/29/20 18:44 Pulse Ox 97 06/29/20 17:23 Body Mass Index 29.9 Reviewed Const: General: cooperative and healthy appearing; No acute distress or intoxicated appearing Nutritional Appearance: average body habitus Orientation/consciousness: patient oriented x3 HENMT: Head: Yes normal to inspection Ears: hearing grossly normal bilaterally Eyes: General: appearance normal, both eyes and all related structures Visual Walls: normal visual walls by confrontation Neck: Neck: Yes normal visual inspection, No positive Brudzinski's sign, No positive Kernig's sign and No tender Thyroid: Thyroid normal Chest: Chest palpation & inspection: normal inspection of the chest Resp: Effort & Inspection: normal respiratory effort Auscultation: clear to auscultation bilaterally Cardio: Jugular venous distension: no JVD Rhythm: regular rhythm Heart sounds: S1 normal heart sound present and S2 normal heart sound present GI: Inspection: Yes normal to inspection Palpation (GI): Soft to palpation Percussion: Yes normal to percussion Auscultation: normal bowel sounds : General: Yes no CVA tenderness Back/Spine/Pelvis: Back: no CVA tenderness Skin: General skin exam: no rashes or lesions noted Neuro: General: patient oriented x3 Extrem: General: Yes normal to inspection Course Course Course Narrative: Labs overall reassuring, abdominal/pelvis CT without acute abnormality. She is tolerating p.o. intake well. This can very well be 1 of the side effects of methimazole which is when the most common reported side effects. At this time will discharge home with Lai and Amberly with guidance to follow up within Endocrinology and further advice on this. At this point is middle night and I do not feel that we need to necessarily call them on an emergent basis. She agrees with this. She will gradually push fluids and bland diet. Otherwise no signs symptoms of tachycardia, chest pain, myalgias, fluid overload. MDM - Nausea/Vomiting/Diarrhea Medical Records Attestation: I reviewed the patient's medical records. Lab Data Attestation: I reviewed the patient's lab results. Result diagrams: 06/29/20 19:50 06/29/20 19:50 Labs: Lab Results 06/29/20 06/29/20 06/29/20 Range/Units 19:50 19:50 19:50 WBC 13.6 H (4.8-10.8) X10*3/uL RBC 5.25 (4.20-5.50) X10*6/uL Hgb 14.9 (12.0-16.0) g/dl Hct 46.0 (37-47) % MCV 87.6 (80-98) fL MCH 28.4 (27.0-33.0) pg MCHC 32.4 (31.0-35.0) g/dl RDW 13.4 (11.0-16.0) % Plt Count 338 D (160-400) X10*3/uL MPV 10.0 (9.4-12.3) fL Immature Gran % (Auto) 0.3 (0.0-0.4) % Neut % (Auto) 51.7 (45-73) % Lymph % (Auto) 31.5 (20-40) % Vernon % (Auto) 9.2 (2-11) % Eos % (Auto) 6.3 H (0-4) % Baso % (Auto) 1.0 (0-2) % Lymph # (Auto) 4.3 (1.2-4.9) X10*3/uL Vernon # (Auto) 1.3 H (0.1-1.2) X10*3/uL Eos # (Auto) 0.9 H (0.0-0.4) X10*3/uL Baso # (Auto) 0.1 (0.0-0.2) X10*3/uL Abs Immat Gran (auto) 0.04 H (0.00-0.03) X10*3/uL Absolute Neuts (auto) 7.0 (2.0-8.3) X10*3/uL Absolute Nucleated RBC 0.000 (0.0-0.012) X10*3/uL Nucleated RBC % (auto) 0.0 (0.0-0.2) /100WBC PT 12.0 (10.8-13.0) SEC INR 1.0 (0.9-1.1) APTT 32.4 (24.1-38.0) SEC Sodium 145 (135-145) mmol/L Potassium 3.9 (3.3-5.1) mmol/L Chloride 106 (96-108) mmol/L Carbon Dioxide 30 H (22-29) mmol/L Anion Gap 13 (12-20) BUN 6 L D (9-16) mg/dL Creatinine 0.81 (0.5-1.4) mg/dL Estim Creat Clear Calc 77.9 Estimated GFR > 60 Random Glucose 118 H D (60-115) mg/dL Calcium 8.7 (8.4-10.2) mg/dL Magnesium 1.6 (1.6-2.6) mg/dL Total Bilirubin 0.7 (0.0-1.0) mg/dL AST 23 (5-31) U/L ALT 20 (0-31) U/L Alkaline Phosphatase 92 (39-117) U/L Total Protein 6.3 L (6.5-8.0) g/dL Albumin 3.6 (3.5-5.0) g/dL TSH < 0.01 L (0.32-4.0) uIU/mL Urine Color Urine Appearance Urine pH (5.0-8.0) Ur Specific Bonita (1.005-1.025) Urine Protein (NEG-TRACE) MG/DL Urine Glucose (UA) (NEG) MG/DL Urine Ketones (NEG) MG/DL Urine Blood (NEG) Urine Nitrite (NEG) Ur Leukocyte Esterase (NEG) Urine RBC (0) /HPF Urine WBC (0-4) /HPF Ur Squamous Epith Cells /LPF Calcium Oxalate Crystal /LPF Urine Bacteria /LPF Urine Opiates Screen (Not Detect) Ur Barbiturates Screen (Not Detect) Ur Phencyclidine Scrn (Not Detect) Ur Amphetamines Screen (Not Detect) U Benzodiazepines Scrn (Not Detect) Urine Cocaine Screen (Not Detect) U Marijuana (THC) Screen (Not Detect) COVID-19 (TIMMY) (Negative) COVID-19 Clin Com 06/29/20 06/29/20 06/29/20 Range/Units 19:50 20:33 20:33 WBC (4.8-10.8) X10*3/uL RBC (4.20-5.50) X10*6/uL Hgb (12.0-16.0) g/dl Hct (37-47) % MCV (80-98) fL MCH (27.0-33.0) pg MCHC (31.0-35.0) g/dl RDW (11.0-16.0) % Plt Count (160-400) X10*3/uL MPV (9.4-12.3) fL Immature Gran % (Auto) (0.0-0.4) % Neut % (Auto) (45-73) % Lymph % (Auto) (20-40) % Vernon % (Auto) (2-11) % Eos % (Auto) (0-4) % Baso % (Auto) (0-2) % Lymph # (Auto) (1.2-4.9) X10*3/uL Vernon # (Auto) (0.1-1.2) X10*3/uL Eos # (Auto) (0.0-0.4) X10*3/uL Baso # (Auto) (0.0-0.2) X10*3/uL Abs Immat Gran (auto) (0.00-0.03) X10*3/uL Absolute Neuts (auto) (2.0-8.3) X10*3/uL Absolute Nucleated RBC (0.0-0.012) X10*3/uL Nucleated RBC % (auto) (0.0-0.2) /100WBC PT (10.8-13.0) SEC INR (0.9-1.1) APTT (24.1-38.0) SEC Sodium (135-145) mmol/L Potassium (3.3-5.1) mmol/L Chloride (96-108) mmol/L Carbon Dioxide (22-29) mmol/L Anion Gap (12-20) BUN (9-16) mg/dL Creatinine (0.5-1.4) mg/dL Estim Creat Clear Calc Estimated GFR Random Glucose (60-115) mg/dL Calcium (8.4-10.2) mg/dL Magnesium (1.6-2.6) mg/dL Total Bilirubin (0.0-1.0) mg/dL AST (5-31) U/L ALT (0-31) U/L Alkaline Phosphatase (39-117) U/L Total Protein (6.5-8.0) g/dL Albumin (3.5-5.0) g/dL TSH (0.32-4.0) uIU/mL Urine Color YELLOW Urine Appearance HAZY Urine pH 6.0 (5.0-8.0) Ur Specific Bonita 1.025 (1.005-1.025) Urine Protein NEG (NEG-TRACE) MG/DL Urine Glucose (UA) NEG (NEG) MG/DL Urine Ketones 5 (NEG) MG/DL Urine Blood NEG (NEG) Urine Nitrite NEG (NEG) Ur Leukocyte Esterase 1+ H (NEG) Urine RBC 0 (0) /HPF Urine WBC 5-9 H (0-4) /HPF Ur Squamous Epith Cells 3+ /LPF Calcium Oxalate Crystal 1+ /LPF Urine Bacteria 3+ /LPF Urine Opiates Screen Not Detected (Not Detect) Ur Barbiturates Screen Not Detected (Not Detect) Ur Phencyclidine Scrn Not Detected (Not Detect) Ur Amphetamines Screen Not Detected (Not Detect) U Benzodiazepines Scrn Not Detected (Not Detect) Urine Cocaine Screen Not Detected (Not Detect) U Marijuana (THC) Screen Not Detected (Not Detect) COVID-19 (TIMMY) Negative (Negative) COVID-19 Clin Com See Note Imaging Data Abdominal/pelvis CT: Radiologist's impression: [address] [id number] Scan ReportSigned Patient: Marita Lawrence MMR#: [id number]: [id number]:[id number]/Sex: 59 / FADM Date: 06/29/20Loc: HO.EDAttending Dr: Ordering Physician: Gianni Zaman NP Date of Service: 06/29/20 Procedure(s): CT abdomen pelvis wo con Accession Number(s): [id number] cc: Gianni Zaman NP~ EXAMINATION: CT ABDOMEN AND PELVIS WITHOUT CONTRAST CLINICAL INFORMATION: Abdominal pain COMPARISON: CT abdomen pelvis 01/27/2018 TECHNIQUE: Multidetector volumetric imaging was performed from the superior aspect of the liver through the pubic symphysis. Sagittal and coronal reformatted images were obtained on the technologist's workstation. This CT examination was performed using dose optimization techniques as appropriate, variously including the following: *Automated exposure control *Adjustment of mA and/or kV according to patient size (this includes techniques or standardized protocols for targeted exams where dose is matched to indication/reason for exam; i.e. extremities or head) *Use of iterative reconstruction technique DLP: 552 mGy-cm FINDINGS: LUNG BASES: The visualized lung bases are unremarkable. LIVER, GALLBLADDER, AND BILIARY TREE: Liver is mildly enlarged measuring 17 cm in greatest length. Attenuation is decreased when compared with the spleen suggestive of hepatic steatosis. No focal liver mass or bile duct dilatation is seen. The gallbladder is not present. PANCREAS: Unremarkable. SPLEEN: Unremarkable. ADRENAL GLANDS: Unremarkable. KIDNEYS AND URETERS: The kidneys are normal in size, shape, and attenuation. There is a 6 mm right lower pole renal calculus which has increased in size when compared to the prior study. Again noted is some mild prominence of the right collecting system but no obstruction. No hydronephrosis, hydroureter, or other calculi seen. No perinephric stranding. BLADDER: Unremarkable. GASTROINTESTINAL TRACT: Again seen is submucosal fat infiltration in the right and transverse colon and portions of the left colon which can be indicative of previous colitis. No acute problem is seen. The small and large bowel are otherwise unremarkable. The appendix is unremarkable. ABDOMINAL WALL: No significant hernia is appreciated. A tiny periumbilical hernia seen containing only fat. LYMPH NODES: No retroperitoneal adenopathy is seen. VASCULAR: Aortoiliac calcific plaque is present without aneurysm seen. PELVIC VISCERA: An anteverted uterus is present. An abnormal adnexal mass or free intraperitoneal fluid is not seen. A small 1.7 cm right ovarian cyst is present which previously measured 2 cm. OSSEOUS STRUCTURES: Degenerative changes again seen in the spine most marked at L5-S1. No bony destructive lesions. CT/CT abdomen pelvis wo con IMPRESSION: 1. An acute cause for the patient's abdominal pain has not been found. 2. Incidental note made of mildly enlarged fatty liver, nonobstructing 6 mm right renal calculus and a right ovarian cyst that has decreased in size. Dictated By:RAY ZAVALA MDSigned By:<Electronically signed by RAY ZAVALA MD in OV>06/29/201948 DD/ 04TD/TT: Felt Hat Pouncing Operator Hand: SS Discharge Plan Discharge Clinical Impression: Nausea & vomiting Patient Disposition: Home, Self-Care Instructions: Acute Nausea and Vomiting (ED) Additional Instructions: Gradually increase your diet as tolerated [place] foods Push fluids Follow-up with information systems security manager on Thursday as planned Return if any concerns or worsening symptoms Thank you Prescriptions: New ondansetron HCl [Zofran] 4 mg tablet 4 mg PO Q8H PRN (Reason: nausea and vomiting) Qty: 10 RF: 0 No Action Daliresp 500 mcg tablet 500 mcg PO DAILY 30 Days Qty: 30 RF: 11 Anoro Ellipta 62.5-25 mcg/actuation blister with device 1 inh inhalation DAILY Qty: 60 RF: 11 Trelegy Ellipta 200-62.5-25 mcg blister with device 1 inh inhalation DAILY 30 Days Qty: 60 RF: 12 methimazole 5 mg tablet 5 mg PO DAILY 30 Days Qty: 30 RF: 5 (DME) FreeStyle Lite Strips Strip See Rx Instructions ea Not Applicable TID Qty: 10 RF: 0 cholecalciferol (vitamin D3) 50 mcg (2,000 unit) capsule 50 mcg PO DAILY 90 Days Qty: 90 RF: 1 Trulicity 1.5 mg/0.5 mL pen injector 1.5 mg subcut QWEEK RF: 0 insulin aspart U-100 [Novolog Flexpen U-100 Insulin] 100 unit/mL (3 mL) insulin pen See Rx Instructions subcut TID RF: 0 Lantus Solostar U-100 Insulin 100 unit/mL (3 mL) insulin pen 35 unit subcut BID RF: 0 lactulose 10 gram/15 mL solution 15 ml PO DAILY PRN (Reason: constipation) RF: 0 albuterol sulfate [ProAir HFA] 90 mcg/actuation HFA aerosol inhaler 2 puff inhalation Q4-6H PRNRF: 0 Combivent Respimat 20-100 mcg/actuation mist 2 puff inhalation QID RF: 0 Trelegy Ellipta 100-62.5-25 mcg blister with device 1 inh inhalation DAILY 30 Days Qty: 60 RF: 11 trazodone 50 mg tablet 50 mg PO BEDTIME PRN (Reason: sleep) Qty: 30 RF: 11 oxycodone-acetaminophen 7.5-325 mg tablet 1 tab PO TID PRNRF: 0 omeprazole 20 mg capsule,delayed release(DR/EC) 20 mg PO BID RF: 0 aspirin 81 mg tablet,delayed release (DR/EC) 81 mg PO DAILY RF: 0 cyclobenzaprine 5 mg tablet 5 mg PO TID PRNRF: 0 prednisone 5 mg tablet 5 mg PO DAILY RF: 0 carvedilol 6.25 mg tablet 6.25 mg PO BID RF: 0 gabapentin 100 mg capsule 100 mg PO BEDTIME RF: 0 atorvastatin 80 mg tablet 80 mg PO BEDTIME RF: 0 (DME) pen needle, diabetic 32 gauge x 5/32 needle See Rx Instructions ea .ROUTE .MEDSUPPLY Qty: 50 RF: 0 ipratropium-albuterol 0.5 mg-3 mg(2.5 mg base)/3 mL solution for nebulization inhalation QID RF: 0 montelukast 10 mg tablet 10 mg PO BEDTIME RF: 0 cetirizine 10 mg tablet 10 mg PO DAILY RF: 0 budesonide 0.5 mg/2 mL suspension for nebulization inhalation DAILY RF: 0 naproxen 500 mg tablet 500 mg PO BID RF: 0 Referrals: Name,MD Bobby [Primary Care Provider] - 3 days
[2020-06-29 19:56] LABS: MANUAL DIFF FLAG NO
[2020-06-29 19:58] LABS: Basophils Absolute Auto 0.1 X10*3/uL (0.0-0.2); Eosinophils Absolute Auto 0.9 X10*3/uL (0.0-0.4); Eosinophils Percent Auto 6.3 % (0-4); Hemoglobin 14.9 g/dl (12.0-16.0); Imm Gran Abs Auto 0.04 X10*3/uL (0.00-0.03); Imm Gran Pct Auto 0.3 % (0.0-0.4); Lymphocytes Absolute Auto 4.3 X10*3/uL (1.2-4.9); Lymphocytes Percent Auto 31.5 % (20-40); Mean Corpuscular HGB Conc 32.4 g/dl (31.0-35.0); Mean Corpuscular Hemoglobin 28.4 pg (27.0-33.0); Mean Corpuscular Volume 87.6 fL (80-98); Monocytes Absolute Auto 1.3 X10*3/uL (0.1-1.2); Monocytes Percent Auto 9.2 % (2-11); Neutrophils Percent Auto 51.7 % (45-73); Platelet Count 338 X10*3/uL (160-400); Red Blood Count 5.25 X10*6/uL (4.20-5.50); Red Cell Distribution Width 13.4 % (11.0-16.0); White Blood Count 13.6 X10*3/uL (4.8-10.8)
[2020-06-29] MEDS: 0.9 % Sodium Chloride 1,000 ML 999 ML IV (19:59)
[2020-06-29 20:06] LABS: Partial Thromboplastin Time 32.4 SEC (24.1-38.0)
[2020-06-29 20:15] LABS: COVID-19 Test Negative (Negative); IDNOW Serial# 9DD0AD1C
[2020-06-29 20:21] LABS: Alanine Aminotransferase 20 U/L (0-31); Albumin Level 3.6 g/dL (3.5-5.0); Alkaline Phosphatase 92 U/L (39-117); Anion Gap 13 (12-20); Aspartate Amino Transferase 23 U/L (5-31); Bilirubin Total 0.7 mg/dL (0.0-1.0); Blood Urea Nitrogen 6 mg/dL (9-16); Calcium 8.7 mg/dL (8.4-10.2); Carbon Dioxide 30 mmol/L (22-29); Chloride 106 mmol/L (96-108); Creatinine Clr Calc Pharmacy 77.9; Estimated Glomerular Filt Rate > 60; Glucose Random 118 mg/dL (60-115); Magnesium 1.6 mg/dL (1.6-2.6); Potassium 3.9 mmol/L (3.3-5.1); Sodium 145 mmol/L (135-145); Total Protein 6.3 g/dL (6.5-8.0)
[2020-06-29 20:41] LABS: Thyroid Stimulating Hormone < 0.01 uIU/mL (0.32-4.0)
[2020-06-29 20:42] LABS: Glucose Urine UA NEG (NEG); Leukocyte Esterase Urine 1+ (NEG); Nitrite Urine NEG (NEG); Specific Gravity - Urine 1.025 (1.005-1.025); UACC Culture Trigger YES; Urine Blood NEG (NEG); Urine Ketones 5 MG/DL (NEG); Urine Protein NEG (NEG-TRACE)
[2020-06-29 20:46] LABS: Appearance Urine HAZY; Color Urine YELLOW
[2020-06-29 20:50] LABS: Bacteria Urine 3+ /LPF; RBC Urine 0 /HPF (0); Squamous Epithelial Cell Urine 3+ /LPF; UACC CULT YES
[2020-06-29 20:51] LABS: Calcium Oxalate Crystals Urine 1+ /LPF
[2020-06-29 21:05] LABS: Amphetamine Screen Urine Not Detected (Not Detect); Barbiturates, Urine Not Detected (Not Detect); Benzodiazepines Screen Urine Not Detected (Not Detect); Cannabinoid Screen Urine Not Detected (Not Detect); Cocaine Screen Urine Not Detected (Not Detect); Opiate Screen Urine Not Detected (Not Detect); Phencyclidine Screen Urine Not Detected (Not Detect)
[2020-06-29] MEDS: Dicyclomine HCl 10 MG CAPSULE 20 MG PO (21:59)
== END 2020-06-29 22:09 | disposition home or self-care (01) ==
PROVIDERS: Nurse Practitioner Primary Care; Emergency Provider Emergency Medicine; PCP Internal Medicine Geriatric Medicine
DX: R11.2 Nausea with vomiting, unspecified (principal); R19.7 Diarrhea, unspecified; R10.9 Unspecified abdominal pain; F17.210 Nicotine dependence, cigarettes, uncomplicated; Z20.822 Contact with and (suspected) exposure to COVID-19; Z79.82 Long term (current) use of aspirin; Z79.899 Other long term (current) drug therapy; Z71.6 Tobacco abuse counseling
CPT/HCPCS: 36415; 74176; 80053; 80307; 81001; 83735; 84443; 85025; 85610; 85730; 87086; 87635; 96360; 99284

== ENCOUNTER → 2020-08-10 13:49 | Outpatient (BNVA) | payer MEDICARE, MEDICAID, SELFPAY | PROVIDERS: PCP Internal Medicine Geriatric Medicine; Visit Provider Internal Medicine Endocrinology, Diabetes & Metabolism | DX: E04.2 Nontoxic multinodular goiter (principal); E55.9 Vitamin D deficiency, unspecified | CPT/HCPCS: 99212 ==

== ENCOUNTER 2020-08-13 11:39 | Outpatient (REF) | payer MEDICARE, MEDICAID, SELFPAY ==
[2020-08-13 12:58] LABS: Basophils Absolute Auto 0.1 X10*3/uL (0.0-0.2); Basophils Percent Auto 0.5 % (0-2); Eosinophils Absolute Auto 0.1 X10*3/uL (0.0-0.4); Eosinophils Percent Auto 0.6 % (0-4); Hematocrit 48.5 % (37-47); Hemoglobin 15.5 g/dl (12.0-16.0); Imm Gran Abs Auto 0.05 X10*3/uL (0.00-0.03); Imm Gran Pct Auto 0.4 % (0.0-0.4); Lymphocytes Percent Auto 16.5 % (20-40); MANUAL DIFF FLAG NO; Mean Corpuscular Hemoglobin 28.5 pg (27.0-33.0); Mean Corpuscular Volume 89.2 fL (80-98); Mean Platelet Volume 10.7 fL (9.4-12.3); Monocytes Absolute Auto 0.3 X10*3/uL (0.1-1.2); Monocytes Percent Auto 2.6 % (2-11); Neutrophils Absolute Auto 9.6 X10*3/uL (2.0-8.3); Neutrophils Percent Auto 79.4 % (45-73); Platelet Count 351 X10*3/uL (160-400); Red Blood Count 5.44 X10*6/uL (4.20-5.50); Red Cell Distribution Width 13.3 % (11.0-16.0); White Blood Count 12.1 X10*3/uL (4.8-10.8)
[2020-08-13 13:24] LABS: Alanine Aminotransferase 19 U/L (0-31); Alkaline Phosphatase 95 U/L (39-117); Aspartate Amino Transferase 12 U/L (5-31); Bilirubin Direct 0.4 mg/dL (0.0-0.5); Bilirubin Total 0.9 mg/dL (0.0-1.0); Total Protein 6.8 g/dL (6.5-8.0)
[2020-08-13 13:47] LABS: Free T4 (Free Thyroxine) 1.42 ng/dL (0.71-1.85); Thyroid Stimulating Hormone 0.03 uIU/mL (0.32-4.0); Vitamin D 25-OH Total 36.7 ng/mL (>30)
[2020-08-14 13:38] LABS: Triiodothyronine T3 Total 138 ng/dL (76-181)
== END 2020-08-13 11:40 | disposition home or self-care (01) ==
LOC: HO.LAB 11:39
PROVIDERS: PCP Internal Medicine Geriatric Medicine; Visit Provider Internal Medicine Endocrinology, Diabetes & Metabolism
DX: E55.9 Vitamin D deficiency, unspecified (principal); E04.2 Nontoxic multinodular goiter; E05.90 Thyrotoxicosis, unspecified without thyrotoxic crisis or storm
CPT/HCPCS: 36415; 80076; 82306; 84439; 84443; 84480; 85025

== ENCOUNTER 2020-08-21 08:29 | Outpatient (REF) | payer MEDICARE, MEDICAID, SELFPAY ==
[2020-08-21 10:20] LABS: Anion Gap 14 (12-20); Blood Urea Nitrogen 10 mg/dL (9-16); Calcium 9.1 mg/dL (8.4-10.2); Carbon Dioxide 27 mmol/L (22-29); Chloride 106 mmol/L (96-108); Estimated Glomerular Filt Rate > 60; Glucose Random 160 mg/dL (60-115); Potassium 4.2 mmol/L (3.3-5.1); Sodium 143 mmol/L (135-145)
== END 2020-08-21 08:30 | disposition home or self-care (01) ==
LOC: HO.LAB 08:29
PROVIDERS: PCP Internal Medicine Geriatric Medicine; Visit Provider Internal Medicine Cardiovascular Disease
DX: I25.5 Ischemic cardiomyopathy (principal)
CPT/HCPCS: 36415; 80048

== ENCOUNTER 2020-08-24 14:07 | Outpatient (REF) | payer MEDICARE, MEDICAID, SELFPAY ==
--- NOTE | ~2020-08-24 | US_ITS ---
EXAMINATION: US VENOUS ULTRASOUND WITH DOPPLER LOWER EXTREMITY, LEFT CLINICAL INFORMATION: Status post laminectomy with left calf pain and swelling. COMPARISON: None TECHNIQUE: Ultrasound of the deep veins is performed from the hip to the calf with compression sonography and color and pulse Doppler assessment. Spectral analysis with color-flow imaging is performed. FINDINGS: There is normal venous compression and respiratory variation and augmented flow. The visualized common femoral vein, superficial femoral vein, profunda femoral vein, popliteal vein, and the trifurcation region shows no evidence of deep venous thrombosis. There is no significant popliteal fossa cyst. If the patient's symptoms persist, followup ultrasound in 5 days 7 days might be of value to exclude proximal propagation from a non-visualized calf vein. US/US venous duplex LE LT IMPRESSION: No DVT demonstrated in the left lower extremity.
== END 2020-08-24 14:08 | disposition home or self-care (01) ==
LOC: HO.HMGCX 14:07
PROVIDERS: Visit Provider Family Medicine
DX: R60.0 Localized edema (principal); M54.10 Radiculopathy, site unspecified; M79.89 Other specified soft tissue disorders
CPT/HCPCS: 93971

== ENCOUNTER → 2020-09-28 10:55 | Outpatient (BNVA) | payer MEDICARE, MEDICAID, SELFPAY | PROVIDERS: PCP Internal Medicine Geriatric Medicine; Visit Provider Hospitalist | DX: J98.11 Atelectasis (principal); J41.0 Simple chronic bronchitis; R91.8 Other nonspecific abnormal finding of lung field; G47.33 Obstructive sleep apnea (adult) (pediatric) | CPT/HCPCS: 99212 ==

== ENCOUNTER 2020-10-02 09:30 | Outpatient (REF) | payer MEDICARE, MEDICAID, SELFPAY ==
--- NOTE | ~2020-10-02 | XR_ITS ---
EXAMINATION: XR CHEST CLINICAL INFORMATION: Atelectasis COMPARISON: Previous chest x-ray April [address] November 2019 TECHNIQUE: 2 views of the chest were obtained. FINDINGS: The cardiac and mediastinal contours are stable. There is atelectasis at the lung bases, greatest retrosternally probably in the right middle lobe and lingula. This does not appear appreciably changed from most recent chest x-ray April 2020 however appears increased from older chest x-ray exams and chest CT November 2019. The lungs are otherwise clear. There is no pleural effusion or pneumothorax. There are degenerative changes of the spine. XR/XR chest 2V IMPRESSION: Atelectasis at the lung bases probably in the right middle lobe and lingula. This is similar to previous chest x-ray April 2020 however is increased from older exams.
== END 2020-10-02 09:31 | disposition home or self-care (01) ==
LOC: HO.XRAY 09:30
PROVIDERS: PCP Internal Medicine Geriatric Medicine; Referring Provider Hospitalist; Visit Provider Internal Medicine Endocrinology, Diabetes & Metabolism
DX: J98.11 Atelectasis (principal); J18.9 Pneumonia, unspecified organism
CPT/HCPCS: 71046

== ENCOUNTER 2020-10-10 09:57 | Outpatient (REF) | payer MEDICARE, MEDICAID, SELFPAY ==
--- NOTE | ~2020-10-10 | MM_ITS ---
EXAMINATION: MM SCREENING DIGITAL BREAST TOMOSYNTHESIS, BILATERAL CLINICAL INFORMATION: Screening. Asymptomatic. Remote excisional biopsy 1997. The lifetime risk of breast cancer based on the Tyrer-Cuzick Model is 12%. COMPARISON: Mammography: 11/17/2019, 09/29/2018, 09/11/2017 TECHNIQUE: Digital breast tomosynthesis is performed in both the craniocaudal and mediolateral oblique views along with computer-aided detection (CAD). Synthesized 2D images are generated from the tomosynthesis. FINDINGS: The breasts are heterogeneously dense, which may obscure small masses (ACR BI-RADS breast composition Category c). Parenchymal pattern is similar to prior studies. No developing density or interval mass or architectural abnormality. There are scattered round calcifications. The axilla and skin contours are unremarkable. No significant changes. MM/MM tomosynthesis screening BI IMPRESSION: No mammographic evidence of malignancy. ASSESSMENT: BI-RADS 2: Benign RECOMMENDATION: Routine annual mammography screening. This patient's information was entered into a reminder system with a target due date for their next mammogram.
== END 2020-10-10 09:58 | disposition home or self-care (01) ==
LOC: HO.MAMMO 09:57
PROVIDERS: PCP Internal Medicine Geriatric Medicine; Visit Provider Internal Medicine Geriatric Medicine
DX: Z12.31 Encounter for screening mammogram for malignant neoplasm of breast (principal)
CPT/HCPCS: 77063; 77067

== ENCOUNTER 2020-10-19 09:06 | Outpatient (REF) | payer MEDICARE, MEDICAID, SELFPAY ==
[2020-10-19 10:55] LABS: Free T4 (Free Thyroxine) 1.14 ng/dL (0.71-1.85); Thyroid Stimulating Hormone 0.61 uIU/mL (0.32-4.0); Vitamin D 25-OH Total 34.7 ng/mL (>30)
[2020-10-20 23:47] LABS: Triiodothyronine T3 Total 131 ng/dL (76-181)
== END 2020-10-19 09:07 | disposition home or self-care (01) ==
LOC: HO.LAB 09:06
PROVIDERS: PCP Internal Medicine Geriatric Medicine; Visit Provider Internal Medicine Endocrinology, Diabetes & Metabolism
DX: E04.2 Nontoxic multinodular goiter (principal); E55.9 Vitamin D deficiency, unspecified; E05.90 Thyrotoxicosis, unspecified without thyrotoxic crisis or storm
CPT/HCPCS: 36415; 82306; 84439; 84443; 84480

== ENCOUNTER 2020-11-07 08:00 | Outpatient (RCR) | payer MEDICARE, MEDICAID, SELFPAY | END 2020-11-11 09:00 | disposition home or self-care (01) | LOC: HO.PT 08:00 | PROVIDERS: PCP Internal Medicine Geriatric Medicine; Visit Provider Neurological Surgery | DX: Z98.890 Other specified postprocedural states (principal) | CPT/HCPCS: 97014; 97110; 97112; 97140; 97163; 97530 ==

== ENCOUNTER 2020-11-11 14:02 | Emergency (ER) | payer MEDICARE, MEDICAID, SELFPAY ==
--- NOTE | ~2020-11-11 | CT_ITS ---
EXAMINATION: CT ANGIOGRAM OF THE CHEST WITH AND WITHOUT CONTRAST (CT PULMONARY ANGIOGRAM FOR PE) CLINICAL INFORMATION: Reason for Exam Pneumonia. PE? COMPARISON: Chest x-ray November 11, 2020. CT chest December 14, 2019 TECHNIQUE: Prior to contrast administration, noncontrast localization images were obtained. Subsequently, multidetector volumetric imaging was performed from the thoracic inlet to below the diaphragms following the administration of 62 mL Omnipaque 350 intravenous contrast. No contrast reaction reported Sagittal, coronal, and MIP oblique sagittal reformatted images were obtained on the CT workstation, uploaded to PACS, and reviewed. This CT examination was performed using dose optimization techniques as appropriate, variously including the following: *Automated exposure control *Adjustment of mA and/or kV according to patient size (this includes techniques or standardized protocols for targeted exams where dose is matched to indication/reason for exam; i.e. extremities or head) *Use of iterative reconstruction technique Total exam dose-length product 421 mGy-cm FINDINGS: QUALITY OF STUDY/CONTRAST BOLUS: Satisfactory. PULMONARY ARTERIES: No central or segmental pulmonary emboli. THORACIC AORTA: No aneurysm or dissection. LUNG: Small focus of consolidation/atelectasis at the medial right middle lobe in the lingula adjacent to the mediastinum. This is chronic unchanged since CAT scan December 14, 2019. Central bronchial airways are open. There is normal aeration throughout the remainder the lungs. No interstitial lung disease. No suspicious lung nodule. PLEURA: No pleural effusion or pneumothorax. MEDIASTINUM: Normal heart size. No pericardial effusion. No hilar or mediastinal lymphadenopathy. No evidence of septal bowing or right heart strain. Right left lobe of thyroid is prominent. No thyroid nodule. No change in appearance. Thyroid is the prior CAT scan of December 14, 2019 CHEST WALL/AXILLA: No axillary or internal mammary lymphadenopathy. OSSEOUS STRUCTURES: No acute or suspicious osseous abnormality. UPPER ABDOMEN: Unremarkable. No reflux of contrast into the hepatic veins to suggest elevated right heart pressures. CT/CT angio chest PE protocol IMPRESSION: 1. No evidence of pulmonary embolism. 2. Chronic scarring/atelectasis at the medial aspect of the right middle lobe and lingula unchanged since CAT scan December 14, 2019. 3. No acute airspace disease. VTE: negative
--- NOTE | ~2020-11-11 | XR_ITS ---
EXAMINATION: XR CHEST CLINICAL INFORMATION: Cough, shortness of breath COMPARISON: 10/02/2020 TECHNIQUE: 2 views of the chest were obtained. FINDINGS: No focal consolidation, pulmonary edema, or pleural effusion. Chronic atelectasis/scarring in the right middle lobe along the right heart border. No change. Stable cardiomediastinal silhouette. XR/XR chest 2V IMPRESSION: No acute cardiopulmonary findings.
[2020-11-11 14:10] VITALS: BP 120/59; PULSE 79; RESP 17; TEMP 36.6; O2SAT 92; BMI 27.4
[2020-11-11] MEDS: Albuterol/Iprat 2.5/0.5MG 3 ML AMPUL.NEB INHALE (16:40)
[2020-11-11 16:42] VITALS: O2SAT 92
[2020-11-11 16:56] VITALS: BP 142/69; PULSE 74; RESP 20; TEMP 36.7; O2SAT 95
[2020-11-11] MEDS: methylPREDNISolone Sod Succ 125 MG/2 ML VIAL IVPUSH (17:14)
[2020-11-11] MEDS: Magnesium Sulfate/H2O 2 GM/50 ML PIGGYBACK IV (17:14)
[2020-11-11 17:16] LABS: Basophils Absolute Auto 0.2 X10*3/uL (0.0-0.2); Eosinophils Absolute Auto 0.9 X10*3/uL (0.0-0.4); Eosinophils Percent Auto 6.3 % (0-4); Hematocrit 47.7 % (37-47); Hemoglobin 15.6 g/dl (12.0-16.0); Imm Gran Abs Auto 0.06 X10*3/uL (0.00-0.03); Imm Gran Pct Auto 0.4 % (0.0-0.4); Lymphocytes Absolute Auto 5.2 X10*3/uL (1.2-4.9); Lymphocytes Percent Auto 36.1 % (20-40); MANUAL DIFF FLAG SCAN; Mean Corpuscular HGB Conc 32.7 g/dl (31.0-35.0); Mean Corpuscular Hemoglobin 28.7 pg (27.0-33.0); Mean Corpuscular Volume 87.7 fL (80-98); Mean Platelet Volume 10.1 fL (9.4-12.3); Monocytes Percent Auto 6.6 % (2-11); Neutrophils Absolute Auto 7.1 X10*3/uL (2.0-8.3); Neutrophils Percent Auto 49.6 % (45-73); Platelet Count 303 X10*3/uL (160-400); Red Blood Count 5.44 X10*6/uL (4.20-5.50); Red Cell Distribution Width 13.7 % (11.0-16.0); SCAN SMEAR FLAG 1; White Blood Count 14.3 X10*3/uL (4.8-10.8)
[2020-11-11 17:24] LABS: Prothrombin Time 11.4 SEC (9.9-13.0)
[2020-11-11 17:32] LABS: Lactic Acid 1.6 mmol/L (0.5-2.0)
[2020-11-11 17:39] LABS: Alanine Aminotransferase 14 U/L (0-31); Alkaline Phosphatase 86 U/L (39-117); Anion Gap 15 (12-20); Aspartate Amino Transferase 17 U/L (5-31); Bilirubin Total 0.9 mg/dL (0.0-1.0); Blood Urea Nitrogen 9 mg/dL (9-16); Calcium 9.5 mg/dL (8.4-10.2); Carbon Dioxide 26 mmol/L (22-29); Chloride 109 mmol/L (96-108); Creatinine Clr Calc Pharmacy 77.6; Estimated Glomerular Filt Rate > 60; Glucose Random 101 mg/dL (60-115); Potassium 4.2 mmol/L (3.3-5.1); Sodium 146 mmol/L (135-145); Total Protein 6.9 g/dL (6.5-8.0)
[2020-11-11 17:42] LABS: B Type Natriuretic Peptide 29 pg/mL (<100); D Dimer < 200 NG/ML
[2020-11-11 18:06] LABS: Influenza A PCR NEGATIVE (Negative); Influenza B PCR NEGATIVE (Negative); Resp Syncy Virus RNA Qual PCR NEGATIVE (Negative); SARS COV2 PCR INHOUSE NEGATIVE (Negative)
--- NOTE | 2020-11-11 18:06 | ED_ITS ---
HPI - General Adult General Chief complaint: Upper Respiratory Symptoms Stated complaint: SOB rib pain Time Seen by Provider: 11/11/20 15:48 Source: patient Mode of arrival: ambulatory Limitations: no limitations History of Present Illness HPI narrative: Patient presents to ED for shortness of breath for the past 4 days with bilateral rib pain. Patient states her oxygen has been 90 91% on room air. Patient is not oxygen dependent. Patient states normal O2 sat 96%. Patient denies any swelling of lower extremities, fever, chills. Related Data Home Medications Medication Instructions Recorded Confirmed aspirin 81 mg tablet,delayed 81 mg PO DAILY 12/24/19 09/28/20 release atorvastatin 80 mg tablet 80 mg PO BEDTIME 12/24/19 09/28/20 carvedilol 6.25 mg tablet 6.25 mg PO BID 12/24/19 09/28/20 cetirizine 10 mg tablet 10 mg PO DAILY 12/24/19 09/28/20 cyclobenzaprine 5 mg tablet 5 mg PO TID PRN 12/24/19 09/28/20 gabapentin 100 mg capsule 100 mg PO BEDTIME 12/24/19 09/28/20 montelukast 10 mg tablet 10 mg PO BEDTIME 12/24/19 09/28/20 omeprazole 20 mg capsule,delayed 20 mg PO BID 12/24/19 09/28/20 release oxycodone-acetaminophen 7.5 mg-325 1 tab PO TID PRN 12/24/19 09/28/20 mg tablet pen needle, diabetic 32 gauge x #50 ea 12/24/19 09/28/20 5/32 insulin aspart U-100 100 unit/mL See Rx Instructions SUBCUT TID ml 01/02/20 09/28/20 (3 mL) subcutaneous pen (Novolog Flexpen U-100 Insulin aspart) insulin glargine 100 unit/mL (3 35 unit SUBCUT BID ml 01/02/20 09/28/20 mL) subcutaneous pen (Lantus Solostar U-100 Insulin) ipratropium 20 mcg-albuterol 100 2 puff INHALATION QID g 01/02/20 09/28/20 mcg/actuation mist for inhalation (Combivent Respimat) lactulose 10 gram/15 mL oral 15 ml PO DAILY PRN 01/02/20 09/28/20 solution blood sugar diagnostic #10 ea 02/27/20 09/28/20 naproxen 500 mg tablet 500 mg PO BID 03/09/20 09/28/20 budesonide 0.5 mg/2 mL suspension mg INHALATION DAILY 04/27/20 09/28/20 for nebulization Previous Rx's Medication Instructions Recorded fluticasone fur. 100 mcg-umeclid 1 inh INHALATION DAILY 30 Days #60 01/02/20 62.5 mcg-vilant 25 mcg ea inhalat.powder (Trelegy Ellipta) trazodone 50 mg tablet 50 mg PO BEDTIME PRN #30 tab 01/02/20 roflumilast 500 mcg tablet 500 mcg PO DAILY 30 Days #30 tab 01/05/20 (Daliresp) umeclidinium 62.5 mcg-vilanterol 1 inh INHALATION DAILY #60 ea 01/11/20 25 mcg/actuation powdr for inhalation (Anoro Ellipta) fluticasone fur. 200 mcg-umeclid 1 inh INHALATION DAILY 30 Days #60 04/23/20 62.5 mcg-vilant 25 mcg ea inhalat.powder (Trelegy Ellipta) dicyclomine 20 mg tablet 20 mg PO QID PRN #14 tab 06/29/20 ondansetron HCl 4 mg tablet 4 mg PO Q8H PRN #10 tab 06/29/20 (Zofran) ipratropium 0.5 mg-albuterol 3 mg 3 ml INHALATION QID #180 ml 07/09/20 (2.5 mg base)/3 mL nebulization soln cholecalciferol (vitamin D3) 50 50 mcg PO DAILY 90 Days #90 cap 08/10/20 mcg (2,000 unit) capsule methimazole 5 mg tablet 5 mg PO DAILY 30 Days #30 tab 08/10/20 prednisone 5 mg tablet 5 mg PO DAILY #30 tab 08/22/20 albuterol sulfate 90 mcg/actuation 2 puff PO Q4-6H PRN #8.5 g 09/11/20 aerosol inhaler doxycycline hyclate 100 mg capsule 100 mg PO BID 10 Days #20 cap 09/28/20 prednisone 5 mg tablet 5 mg PO DAILY 30 Days #30 tab 09/28/20 varenicline 0.5 mg (11)-1 mg (42) See Rx Instructions PO PER PKG DIR 09/28/20 tablets in a dose pack (Chantix 30 Days #53 ea Starting Month Box) varenicline 1 mg tablet (Chantix 1 mg PO BID 28 Days #56 tab 11/07/20 Continuing Month Box) Allergies Allergy/AdvReac Type Severity Reaction Status Date / Time HANK Inhibitors Allergy Severe ANGIO Verified 09/28/20 11:08 [HANK INHIBITORS] EDEMA enalapril Allergy Severe Anaphylaxis Verified 09/28/20 11:08 erythromycin base Allergy Severe HIVES ALL Verified 09/28/20 11:08 [ERYTHROMYCIN BASE] OVER hydromorphone [From DILAUDID] AdvReac Severe TINGLING, Verified 09/28/20 11:08 PT DOES NOT LIKE THE FEELING MED GIVES HER Review of Systems Review of Systems: Yes all other systems are reviewed and are negative Constitutional: Constitutional: Reports as per HPI and Reports no additional constitutional complaints Eyes: Eyes: Reports as per HPI and Reports no additional eye complaints ENT: Reports system reviewed and no additional complaints, except as documented and Reports as per HPI Cardiovascular: Cardiovascular: Reports as per HPI, Reports no additional cardiovascular complaints, Denies chest pain, Denies chest pain at rest and Reports dyspnea Comments: Bilateral rib pain Respiratory: Respiratory: Reports as per HPI, Reports no additional respiratory complaints and Reports dyspnea Genitourinary: Genitourinary: Reports no additional female genitourinary complaints and Reports as per HPI Musculoskeletal: Musculoskeletal: Reports no additional musculoskeletal complaints and Reports as per HPI Neurologic: Reports system reviewed and no additional complaints, except as documented and Reports as per HPI Psychiatric: Psychiatric: Reports no additional psychiatric complaints and Reports as per HPI PMF Past Medical History Medical History Atelectasis COPD (chronic obstructive pulmonary disease) Goiter Multinodular goiter Pneumonia Pulmonary nodules Subclinical hyperthyroidism Vitamin D deficiency Surgical History History of cholecystectomy History of tonsillectomy History of ureterostomy S/P lumpectomy, right breast Family History Family History Father No problems noted. Mother No problems noted. Paternal Aunt Diabetes Social History Social History Alcohol intake: never Patient Tobacco Use Status: Current everyday Tobacco user Smoked in Last 30 Days: Yes Use of substances other than those prescribed or required for medical reasons: Yes Substance Use Type: Marijuana Advance Directives: No Advance Directives Information Provided: No Physical Exam Vital Signs: Vital Signs: Last Vital Signs Temp 98.0 F 11/11/20 16:56 Pulse 74 11/11/20 16:56 Resp 20 11/11/20 16:56 BP 142/69 H 11/11/20 16:56 Pulse Ox 95 11/11/20 16:56 Body Mass Index 27.4 Const: General: cooperative, healthy appearing, comfortable, no acute distress, well developed, alert, awake and Physically active Orientation/consciousness: oriented to time and patient oriented x3 HENMT: Head: Yes normal to inspection, Yes No palpable skull fracture present, Yes normocephalic, Yes atraumatic and No abrasion Eyes: General: appearance normal, both eyes and all related structures Neck: Neck: Yes normal visual inspection, Yes full ROM, Yes no lymphadenopathy, Yes no meningeal signs, Yes trachea midline, Yes supple and No tender Chest: Chest palpation & inspection: normal inspection of the chest and normal palpation of entire chest wall Resp: Effort & Inspection: normal respiratory effort and able to speak in complete sentences Auscultation: wheezes Cardio: Jugular venous distension: no JVD Heart sounds: S1 normal heart sound present and S2 normal heart sound present GI: Inspection: Yes normal to inspection and No abdominal wall ecchymosis Palpation (GI): Soft to palpation, not firm, nontender, no guarding and not rigid : General: No CVA tenderness and Yes no CVA tenderness Back/Spine/Pelvis: Back: no CVA tenderness, No CVA tenderness and No back tenderness Skin: General skin exam: no rashes or lesions noted and elasticity normal Neuro: General: oriented to time, patient oriented x3, no meningeal signs and CN's II-XI intact bilaterally Cranial nerves: Yes CN's II-XII intact bilaterally Extrem: Other: Lower extremities negative for swelling, pitting edema, or calf tenderness. General: Yes normal to inspection and No full ROM Course Course Course Narrative: Patient with medical evaluation and be giving abuser all, magnesium, Solu-Medrol. Reevaluation(s) Reevaluation #1: EKG pending. BNP is negative. Chest x-ray negative for pneumonia. EKG troponin pending. Due to patient stating she has her oxygen was low for the past 4 days although presently O2 sat 95 on room air patient will be sent for a chest CTA to rule out PE versus pneumonia. Patient sleeping comfor tably in bed. COVID swab pending. Sign out to DEBORAH Arnold Time: 18:13 Medical Decision Making MDM Narrative Medical decision making narrative: SOB Lab Data Result diagrams: 11/11/20 17:06 11/11/20 17:06 Labs: Lab Results 11/11/20 11/11/20 11/11/20 Range/Units 17:06 17:06 17:06 WBC 14.3 H (4.8-10.8) X10*3/uL RBC 5.44 (4.20-5.50) X10*6/uL Hgb 15.6 (12.0-16.0) g/dl Hct 47.7 H (37-47) % Plt Count 303 (160-400) X10*3/uL PT (9.9-13.0) SEC INR (0.9-1.1) APTT (24.1-38.0) SEC D-Dimer < 200 NG/ML Sodium 146 H (135-145) mmol/L Potassium 4.2 (3.3-5.1) mmol/L Chloride 109 H (96-108) mmol/L Carbon Dioxide 26 (22-29) mmol/L Anion Gap 15 (12-20) BUN 9 (9-16) mg/dL Creatinine 0.78 (0.5-1.4) mg/dL Estim Creat Clear Calc 77.6 Estimated GFR > 60 Random Glucose 101 D (60-115) mg/dL Lactic Acid (0.5-2.0) mmol/L Calcium 9.5 (8.4-10.2) mg/dL Total Bilirubin 0.9 (0.0-1.0) mg/dL AST 17 D (5-31) U/L ALT 14 (0-31) U/L Alkaline Phosphatase 86 (39-117) U/L B-Natriuretic Peptide (<100) pg/mL Total Protein 6.9 (6.5-8.0) g/dL Albumin 4.0 (3.5-5.0) g/dL 11/11/20 11/11/20 11/11/20 Range/Units 17:06 17:06 17:06 WBC (4.8-10.8) X10*3/uL RBC (4.20-5.50) X10*6/uL Hgb (12.0-16.0) g/dl Hct (37-47) % Plt Count (160-400) X10*3/uL PT 11.4 (9.9-13.0) SEC INR 1.0 (0.9-1.1) APTT 32.0 (24.1-38.0) SEC D-Dimer NG/ML Sodium (135-145) mmol/L Potassium (3.3-5.1) mmol/L Chloride (96-108) mmol/L Carbon Dioxide (22-29) mmol/L Anion Gap (12-20) BUN (9-16) mg/dL Creatinine (0.5-1.4) mg/dL Estim Creat Clear Calc Estimated GFR Random Glucose (60-115) mg/dL Lactic Acid 1.6 (0.5-2.0) mmol/L Calcium (8.4-10.2) mg/dL Total Bilirubin (0.0-1.0) mg/dL AST (5-31) U/L ALT (0-31) U/L Alkaline Phosphatase (39-117) U/L B-Natriuretic Peptide 29 (<100) pg/mL Total Protein (6.5-8.0) g/dL Albumin (3.5-5.0) g/dL Discharge Plan Discharge Clinical Impression: COPD (chronic obstructive pulmonary disease) Prescriptions: No Action Daliresp 500 mcg tablet 500 mcg PO DAILY 30 Days Qty: 30 RF: 11 Anoro Ellipta 62.5-25 mcg/actuation blister with device 1 inh inhalation DAILY Qty: 60 RF: 11 Trelegy Ellipta 200-62.5-25 mcg blister with device 1 inh inhalation DAILY 30 Days Qty: 60 RF: 12 ipratropium-albuterol 0.5 mg-3 mg(2.5 mg base)/3 mL solution for nebulization 3 ml inhalation QID Qty: 180 RF: 0 prednisone 5 mg tablet 5 mg PO DAILY Qty: 30 RF: 0 albuterol sulfate 90 mcg/actuation HFA aerosol inhaler 2 puff PO Q4-6H PRN (Reason: for wheezing) Qty: 8.5 RF: 11 Chantix Continuing Month Box 1 mg tablet 1 mg PO BID 28 Days Qty: 56 RF: 2 ondansetron HCl [Zofran] 4 mg tablet 4 mg PO Q8H PRN (Reason: nausea and vomiting) Qty: 10 RF: 0 dicyclomine 20 mg tablet 20 mg PO QID PRN (Reason: pain (scale score 4-6)) Qty: 14 RF: 0 (DME) FreeStyle Lite Strips Strip See Rx Instructions ea Not Applicable TID Qty: 10 RF: 0 insulin aspart U-100 [Novolog Flexpen U-100 Insulin] 100 unit/mL (3 mL) insulin pen See Rx Instructions subcut TID RF: 0 Lantus Solostar U-100 Insulin 100 unit/mL (3 mL) insulin pen 35 unit subcut BID RF: 0 lactulose 10 gram/15 mL solution 15 ml PO DAILY PRN (Reason: constipation) RF: 0 Combivent Respimat 20-100 mcg/actuation mist 2 puff inhalation QID RF: 0 Trelegy Ellipta 100-62.5-25 mcg blister with device 1 inh inhalation DAILY 30 Days Qty: 60 RF: 11 trazodone 50 mg tablet 50 mg PO BEDTIME PRN (Reason: sleep) Qty: 30 RF: 11 oxycodone-acetaminophen 7.5-325 mg tablet 1 tab PO TID PRNRF: 0 omeprazole 20 mg capsule,delayed release(DR/EC) 20 mg PO BID RF: 0 aspirin 81 mg tablet,delayed release (DR/EC) 81 mg PO DAILY RF: 0 cyclobenzaprine 5 mg tablet 5 mg PO TID PRNRF: 0 carvedilol 6.25 mg tablet 6.25 mg PO BID RF: 0 gabapentin 100 mg capsule 100 mg PO BEDTIME RF: 0 atorvastatin 80 mg tablet 80 mg PO BEDTIME RF: 0 (DME) pen needle, diabetic 32 gauge x 5/32 needle See Rx Instructions ea .ROUTE .MEDSUPPLY Qty: 50 RF: 0 montelukast 10 mg tablet 10 mg PO BEDTIME RF: 0 cetirizine 10 mg tablet 10 mg PO DAILY RF: 0 budesonide 0.5 mg/2 mL suspension for nebulization inhalation DAILY RF: 0 naproxen 500 mg tablet 500 mg PO BID RF: 0 prednisone 5 mg tablet 5 mg PO DAILY 30 Days Qty: 30 RF: 3 doxycycline hyclate 100 mg capsule 100 mg PO BID 10 Days Qty: 20 RF: 0 Chantix Starting Month Box 0.5 mg (11)- 1 mg (42) tablets,dose pack See Rx Instructions PO PER PKG DIR 30 Days Qty: 53 RF: 0 methimazole 5 mg tablet 5 mg PO DAILY 30 Days Qty: 30 RF: 5 cholecalciferol (vitamin D3) 50 mcg (2,000 unit) capsule 50 mcg PO DAILY 90 Days Qty: 90 RF: 1
--- NOTE | 2020-11-11 18:11 | ECG_ITS ---
Test Reason : UPPER RES Blood Pressure : / mmHG Vent. Rate : 082 BPM Atrial Rate : 082 BPM P-R Int : 148 ms QRS Dur : 090 ms QT Int : 390 ms P-R-T Axes : 069 -15 028 degrees QTc Int : 455 ms Normal sinus rhythm Normal ECG When compared with ECG of 24-MAY-2020 21:48, No significant change was found Referred By: Drew Herrera Electronically Signed By:CODY HAAS
[2020-11-11 18:13] LABS: SLIDE REVIEW VERIFIED
[2020-11-11 20:00] VITALS: BP 167/83; PULSE 82; RESP 17; TEMP 37.3; O2SAT 99
[2020-11-11] MEDS: levoFLOXacin 500 MG TABLET PO (20:17)
== END 2020-11-11 20:42 | disposition home or self-care (01) ==
PROVIDERS: Physician Assistant; Emergency Provider Emergency Medicine; PCP Internal Medicine Geriatric Medicine
DX: J44.9 Chronic obstructive pulmonary disease, unspecified (principal); R07.81 Pleurodynia; F17.200 Nicotine dependence, unspecified, uncomplicated; Z71.6 Tobacco abuse counseling; Z20.822 Contact with and (suspected) exposure to COVID-19; Z79.899 Other long term (current) drug therapy
CPT/HCPCS: 0241U; 36415; 71046; 71275; 80053; 83605; 83880; 84484; 85025; 85379; 85610; 85730; 87040; 93005; 94640; 96365; 96366; 96375; 99284; J2930; J3475

== ENCOUNTER → 2020-12-10 09:23 | Outpatient (BNVA) | payer MEDICARE, MEDICAID, SELFPAY | PROVIDERS: PCP Internal Medicine Geriatric Medicine; Visit Provider Internal Medicine | DX: E04.2 Nontoxic multinodular goiter (principal); E55.9 Vitamin D deficiency, unspecified; E05.90 Thyrotoxicosis, unspecified without thyrotoxic crisis or storm | CPT/HCPCS: 99212 ==

== ENCOUNTER 2020-12-10 10:29 | Outpatient (REF) | payer MEDICARE, MEDICAID, SELFPAY ==
[2020-12-10 14:40] LABS: Free T4 (Free Thyroxine) 1.01 ng/dL (0.71-1.85); Thyroid Stimulating Hormone 0.63 uIU/mL (0.32-4.0); Vitamin D 25-OH Total 38.6 ng/mL (>30)
[2020-12-11 19:26] LABS: Triiodothyronine T3 Total 170 ng/dL (76-181)
[2020-12-12 21:12] LABS: Thyroglobulin Antibodies <1 IU/mL (< or = 1); Thyroid Peroxidase Antibodies <1 IU/mL (<9)
[2020-12-15 21:12] LABS: Thyrotropin Receptor Antibody <1.00 IU/L (<=2.00)
[2020-12-17 16:02] LABS: Thyroid Stimulating Immunoglob <89 % baseline (<140)
== END 2020-12-10 10:30 | disposition home or self-care (01) ==
LOC: HO.10HDL 10:29
PROVIDERS: Visit Provider Internal Medicine
DX: E05.20 Thyrotoxicosis with toxic multinodular goiter without thyrotoxic crisis or storm (principal); E55.9 Vitamin D deficiency, unspecified; Z79.899 Other long term (current) drug therapy
CPT/HCPCS: 36415; 82306; 83520; 84439; 84443; 84445; 84480; 86376; 86800; 99212

== ENCOUNTER 2020-12-27 09:45 | Outpatient (REF) | payer MEDICARE, MEDICAID, SELFPAY ==
--- NOTE | ~2020-12-27 | US_ITS ---
EXAMINATION: US THYROID CLINICAL INFORMATION: Thyrotoxicosis, unspecified without thyrotoxic crisis or storm. COMPARISON: Ultrasound soft tissue head/neck thyroid dated 03/06/2020. TECHNIQUE: Linear transducer grayscale and color Doppler examination with attention to the region of the thyroid. FINDINGS: SIZE: Measurements of the thyroid lobes and nodules are given in sagittal, anteroposterior and transverse dimensions respectively. Right Thyroid Lobe: 5.6 x 3.1 x 3.6 cm, volume 32.7 mL. Previously 5.2 x 2.4 x 3.4 cm, volume 23.0 mL. Parenchyma: The gland echotexture is heterogeneous. Thyroid vascularity is normal. Left Thyroid Lobe: 6.5 x 3.0 x 3.4 cm, volume 34.7 mL. Previously 5.7 x 1.9 x 2.8 cm, volume 15.9 mL. Parenchyma: The gland echotexture is heterogeneous. Thyroid vascularity is normal. Isthmus: 0.6 cm in maximum AP dimension. Previously 0.5 cm. Estimated total number of nodules greater than or equal to 1 cm: 1. 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 Location: Left mid. Size: 0.8 x 0.6 x 0.5 cm, volume 0.12 mL. Previously: 0.7 x 0.6 x 0.8 cm, volume 0.18 mL. Nodule characteristics: Composition: Solid/almost completely solid (2). Echogenicity: Hypoechoic (2). Shape: Not taller than wide (0). Margins: Smooth (0). Echogenic Foci: None (0). ACR TI-RADS total points: 4 ACR TI-RADS category: 4 Significant change in size (>/= 20% in 2 dimensions and minimal increase of 2 mm or 50% or greater increase in volume): Change in features: Change in ACR TI-RADS risk category: 2. Location: Left superior. Size: 0.6 x 0.7 x 0.3 cm, volume 0.07 mL. Previously: 0.6 x 0.4 x 0.6 cm, volume 0.08 mL. Nodule characteristics: Composition: Solid (2). Echogenicity: Hypoechoic (2). Shape: Not taller than wide (0). Margins: Smooth (0). Echogenic Foci: None (0). ACR TI-RADS total points: 4 ACR TI-RADS category: 4 Significant change in size (>/= 20% in 2 dimensions and minimal increase of 2 mm or 50% or greater increase in volume): Change in features: Change in ACR TI-RADS risk category: 3. Location: Right inferior. Size: 1.8 x 1.8 x 1.7 cm, volume 2.88 mL. Previously: Not seen on the prior study. Appreciable nodule versus area of gland heterogeneity. Nodule characteristics: Composition: Solid (2). Echogenicity: Hypoechoic (2). Shape: Not taller than wide (0). Margins: Smooth (0). Echogenic Foci: None (0). ACR TI-RADS total points: 4 ACR TI-RADS category: 4 Significant change in size (>/= 20% in 2 dimensions and minimal increase of 2 mm or 50% or greater increase in volume): Change in features: Change in ACR TI-RADS risk category: 4. Location: Right mid. Size: 0.6 x 0.4 x 0.3 cm, volume 0.04 mL. Previously: 0.6 x 0.5 x 0.6 cm, volume 0.09 mL. Nodule characteristics: Composition: Solid (2). Echogenicity: Hypoechoic (2). Shape: Not taller than wide (0). Margins: Smooth (0). Echogenic Foci: None (0). ACR TI-RADS total points: 4 ACR TI-RADS category: 4 Significant change in size (>/= 20% in 2 dimensions and minimal increase of 2 mm or 50% or greater increase in volume): Change in features: Change in ACR TI-RADS risk category: NODES: No lymphadenopathy is seen in the tissue surrounding the thyroid gland. US/US thyroid IMPRESSION: Enlarged heterogeneous thyroid gland. The thyroid gland is increased in size from previous exam. There is question of a newly appreciated right inferior nodule versus area of gland heterogeneity. Other small nodules are stable. ACR TI-RADS RECOMMENDATION REFERENCE: Ultrasound-guided fine-needle aspiration, followup ultrasound, no further follow up. * TR1 (0 point) and TR 2 (2 points): No FNA or follow up * TR3 (3 points): FNA if more than or equal to 2.5 cm in maximum dimension, followup ultrasound in 1, 3 and 5 years if 1.5 to 2.4 cm in maximum dimension. * TR4 (4-6 points): FNA if more than or equal to 1.5 cm in maximum dimension, followup ultrasound in 1, 2, 3 and 5 years if 1 to 1.4 cm in maximum dimension. * TR5 (more than or equal to 7 points): FNA if more than or equal to 1 cm in maximum dimension, followup ultrasound every year for 5 years if 0.5 to 0.9 cm in maximum dimension. * TR3, TR4 or TR5 nodules that are below the size threshold for follow up receive no follow up.
== END 2020-12-27 09:46 | disposition home or self-care (01) ==
LOC: HO.US 09:45
PROVIDERS: PCP Internal Medicine Geriatric Medicine; Visit Provider Internal Medicine
DX: E05.90 Thyrotoxicosis, unspecified without thyrotoxic crisis or storm (principal)
CPT/HCPCS: 76536

== ENCOUNTER 2021-01-21 10:02 | Outpatient (REF) | payer MEDICARE, MEDICAID, SELFPAY ==
--- NOTE | ~2021-01-21 | CT_ITS ---
EXAMINATION: CT CHEST WITHOUT CONTRAST CLINICAL INFORMATION: Solitary pulmonary nodule. For follow-up imaging surveillance. COMPARISON: CT of the chest done on 12/14/2019 and most recent prior CT of the chest done on 11/11/2020. TECHNIQUE: Multidetector volumetric CT imaging of the chest was done. Axial MIP volume rendering provided. Sagittal and coronal reformatted images were obtained. This CT examination was performed using dose optimization techniques as appropriate, variously including the following: *Automated exposure control *Adjustment of mA and/or kV according to patient size (this includes techniques or standardized protocols for targeted exams where dose is matched to indication/reason for exam; i.e. extremities or head) *Use of iterative reconstruction technique DLP: 175 mGy-cm FINDINGS: SUPERVISOR MIXING: Unremarkable. LUNGS: The indexed sub-5 mm subpleural lung nodule seen at right upper lobe of the lung on the prior study dated 12/14/2019 appear unchanged (221:7). The second sub-5 mm noncalcified nodule abutting the mediastinal pleural surface and also at right upper lobe of the lung (187:7) is unchanged as well. Air bronchogram, peribronchiolar airspace disease, crowding of the bronchovascular markings involving the right middle lobe, consistent with partial collapse consolidation and similar-appearing lesser extensive changes involving the lingular segment of the left upper lobe appear stable. The tracheobronchial tree is patent. Note is however made of subtle focal thickening seen involving the right anterior wall of the trachea at the level of the thoracic inlet (92:7), new since prior study, indeterminate etiology. Direct visualization may be considered for further clarification. MEDIASTINUM: Evidence of thyromegaly is noted with extension into the left-sided superior anterior mediastinum, unchanged since prior study. There are no pathologically enlarged mediastinal and/or hilar lymphadenopathy. Atherosclerotic coronary arterial disease present mostly involving the right coronary artery. PLEURA: There is no pleural effusion. Stable mild pleural thickening is noted involving the right minor fissure. AXILLA: No lymphadenopathy. UPPER ABDOMEN: Unremarkable. OSSEOUS STRUCTURES: Unremarkable. CT/CT chest wo con IMPRESSION: 1. Interval development of subtle soft tissue thickening is present involving the right anterior wall of the trachea at the level of the thoracic inlet, indeterminate etiology. Direct visualization may be considered for further clarification. 2. Persistent stable cardiomegaly with extension into the superior mediastinum on the left. 3. Stable sub-5 mm noncalcified subpleural lung nodules are noted within the right upper lobe (x2), unchanged since 12/14/2019. 4. Persistent stable airspace opacities with partial volume loss at right middle lobe and lingular segment of the left upper lobe.
[2021-01-21 11:40] LABS: Thyroid Stimulating Hormone 0.45 uIU/mL (0.32-4.0)
[2021-01-22 19:50] LABS: Triiodothyronine T3 Total 170 ng/dL (76-181)
== END 2021-01-21 10:03 | disposition home or self-care (01) ==
LOC: HO.CT 10:02
PROVIDERS: Absent Provider Internal Medicine; PCP Internal Medicine Geriatric Medicine; Visit Provider Internal Medicine Geriatric Medicine
DX: R91.1 Solitary pulmonary nodule (principal); E05.90 Thyrotoxicosis, unspecified without thyrotoxic crisis or storm; F17.200 Nicotine dependence, unspecified, uncomplicated
CPT/HCPCS: 36415; 71250; 84439; 84443; 84480

== ENCOUNTER 2021-01-23 20:41 | Inpatient (IN) | payer MEDICARE, MEDICAID, SELFPAY ==
[2021-01-23] VITALS (8 sets, daily range): BP systolic 125–134; BP diastolic 59–77; PULSE 87–113; RESP 16–24; TEMP 36.8–36.9; O2SAT 88–96; BMI 25.7
--- NOTE | ~2021-01-23 | XR_ITS ---
EXAMINATION: XR CHEST CLINICAL INFORMATION: Dyspnea COMPARISON: 11/11/2020 TECHNIQUE: Frontal view of the chest was obtained. FINDINGS: The lungs are well expanded. There is no focal consolidation, edema, or effusion. Bronchial wall thickening noted. No pneumothorax. The cardiomediastinal silhouette is within normal limits. No acute osseous abnormality. XR/XR chest 1V IMPRESSION: No dense consolidation. Bronchial wall thickening can be seen with a small airways process such as asthma or atypical/viral infection.
--- NOTE | 2021-01-23 20:47 | ECG_ITS ---
Test Reason : DYSPNEA Blood Pressure : / mmHG Vent. Rate : 103 BPM Atrial Rate : 103 BPM P-R Int : 140 ms QRS Dur : 092 ms QT Int : 330 ms P-R-T Axes : 071 -04 034 degrees QTc Int : 432 ms Sinus tachycardia Incomplete right bundle branch block Nonspecific T wave abnormality Inferior leads Abnormal ECG When compared with ECG of 11-NOV-2020 20:01, No significant change was found Heart rate has increased Referred By: Generic ED Physician Electronically Signed By:MEENAKSHI LOTT MD
--- NOTE | 2021-01-23 20:59 | PC.NURSE ---
MD at bedside for primary evaluation
--- NOTE | 2021-01-23 21:09 | ED_ITS ---
HPI - SOB/Dyspnea General Chief Complaint: Dyspnea Stated Complaint: diff breathing copd Time Seen by Provider: 01/23/21 21:06 Source: patient Mode of arrival: ambulatory Limitations: no limitations History of Present Illness MD elicited complaint: shortness of breath and cough Pertinent past history: COPD Onset (ago): hour(s) (few) Context: other (dealing with back spasms recently, she is vaccinated) Timing: constant Severity: moderate Exacerbating factors: exertion Relieving factors: oxygen, rest and bronchodilators Known history of: COPD (found herself to be 88% on RA at home) Associated symptoms: cough and wheezing Treatment prior to arrival: bronchodilator Related Data Home Medications Medication Instructions Recorded Confirmed aspirin 81 mg tablet,delayed 81 mg PO DAILY 12/24/19 12/10/20 release atorvastatin 80 mg tablet 80 mg PO BEDTIME 12/24/19 12/10/20 carvedilol 6.25 mg tablet 6.25 mg PO BID 12/24/19 12/10/20 cetirizine 10 mg tablet 10 mg PO DAILY 12/24/19 12/10/20 cyclobenzaprine 5 mg tablet 5 mg PO TID PRN 12/24/19 12/10/20 gabapentin 100 mg capsule 100 mg PO BEDTIME 12/24/19 12/10/20 montelukast 10 mg tablet 10 mg PO BEDTIME 12/24/19 12/10/20 omeprazole 20 mg capsule,delayed 20 mg PO BID 12/24/19 12/10/20 release oxycodone-acetaminophen 7.5 mg-325 1 tab PO TID PRN 12/24/19 12/10/20 mg tablet pen needle, diabetic 32 gauge x #50 ea 12/24/19 12/10/20 5/32 insulin aspart U-100 100 unit/mL See Rx Instructions SUBCUT TID ml 01/02/20 12/10/20 (3 mL) subcutaneous pen (Novolog Flexpen U-100 Insulin aspart) insulin glargine 100 unit/mL (3 35 unit SUBCUT BID ml 01/02/20 12/10/20 mL) subcutaneous pen (Lantus Solostar U-100 Insulin) ipratropium 20 mcg-albuterol 100 2 puff INHALATION QID g 01/02/20 12/10/20 mcg/actuation mist for inhalation (Combivent Respimat) lactulose 10 gram/15 mL oral 15 ml PO DAILY PRN 01/02/20 12/10/20 solution blood sugar diagnostic #10 ea 02/27/20 12/10/20 naproxen 500 mg tablet 500 mg PO BID 03/09/20 12/10/20 Previous Rx's Medication Instructions Recorded fluticasone fur. 100 mcg-umeclid 1 inh INHALATION DAILY 30 Days #60 01/02/20 62.5 mcg-vilant 25 mcg ea inhalat.powder (Trelegy Ellipta) trazodone 50 mg tablet 50 mg PO BEDTIME PRN #30 tab 01/02/20 umeclidinium 62.5 mcg-vilanterol 1 inh INHALATION DAILY #60 ea 01/11/20 25 mcg/actuation powdr for inhalation (Anoro Ellipta) fluticasone fur. 200 mcg-umeclid 1 inh INHALATION DAILY 30 Days #60 04/23/20 62.5 mcg-vilant 25 mcg ea inhalat.powder (Trelegy Ellipta) dicyclomine 20 mg tablet 20 mg PO QID PRN #14 tab 06/29/20 ondansetron HCl 4 mg tablet 4 mg PO Q8H PRN #10 tab 06/29/20 (Zofran) ipratropium 0.5 mg-albuterol 3 mg 3 ml INHALATION QID #180 ml 07/09/20 (2.5 mg base)/3 mL nebulization soln cholecalciferol (vitamin D3) 50 50 mcg PO DAILY 90 Days #90 cap 08/10/20 mcg (2,000 unit) capsule albuterol sulfate 90 mcg/actuation 2 puff PO Q4-6H PRN #8.5 g 09/11/20 aerosol inhaler doxycycline hyclate 100 mg capsule 100 mg PO BID 10 Days #20 cap 09/28/20 varenicline 0.5 mg (11)-1 mg (42) See Rx Instructions PO PER PKG DIR 09/28/20 tablets in a dose pack (Chantix 30 Days #53 ea Starting Month Box) varenicline 1 mg tablet (Chantix 1 mg PO BID 28 Days #56 tab 11/07/20 Continuing Month Box) levofloxacin 500 mg tablet 500 mg PO DAILY 5 Days #5 tab 11/11/20 prednisone 10 mg tablets in a dose 10 mg PO PER PKG DIR #48 ea 11/11/20 pack budesonide 0.5 mg/2 mL suspension 0.5 mg INHALATION DAILY #60 ml 12/18/20 for nebulization roflumilast 500 mcg tablet 500 mcg PO DAILY #30 tab 01/09/21 (Daliresp) Allergies Allergy/AdvReac Type Severity Reaction Status Date / Time HANK Inhibitors Allergy Severe ANGIO Verified 12/10/20 10:12 [HANK INHIBITORS] EDEMA enalapril Allergy Severe Anaphylaxis Verified 12/10/20 10:12 erythromycin base Allergy Severe HIVES ALL Verified 12/10/20 10:12 [ERYTHROMYCIN BASE] OVER hydromorphone [From DILAUDID] AdvReac Severe TINGLING, Verified 12/10/20 10:12 PT DOES NOT LIKE THE FEELING MED GIVES HER Review of Systems Review of Systems: Constitutional : No Fever, No Chills ENT/Mouth : No sore throat, No Rhinorrhea, No Swallowing Difficulty Eyes: No Eye Pain, No Swelling, No Redness Cardiovascular : No Chest Pain, positive SOB, No Orthopnea, no Edema Respiratory : pos Cough, No Sputum, pos Wheezing, positive dyspnea Gastrointestinal : No Nausea, No Vomiting, No Diarrhea, No abdominal Pain, No Hematochezia, No Melena Genitourinary : No Dysuria, No Urinary Frequency, No Hematuria Musculoskeletal : No joint pain, No Myalgias, pos back pain Skin : No Skin Lesions, No rash Neuro : No Weakness, No Numbness, No Dizziness, No Headache Psych : No Anxiety/Panic, No Depression Heme/Lymph: No Bruising, No Lymphadenopathy Endocrine : No Polyuria, No Polydipsia All other systems reviewed and are negative [facility] Past Medical History Attestation statement: The following information was validated with the patient. Medical History Atelectasis COPD (chronic obstructive pulmonary disease) Goiter Multinodular goiter Pneumonia Pulmonary nodules Subclinical hyperthyroidism Vitamin D deficiency Surgical History History of back surgery History of cholecystectomy History of tonsillectomy History of ureterostomy S/P lumpectomy, right breast Family History Family History Father No problems noted. Mother No problems noted. Paternal Aunt Diabetes Social History Social History Alcohol intake: never Patient Tobacco Use Status: Current everyday Tobacco user Substance Use Type: Marijuana Advance Directives: No Physical Exam Vital Signs: Vital Signs: Last Vital Signs Temp 98.3 F 01/23/21 21:43 Pulse 87 01/23/21 22:35 Resp 19 01/23/21 22:38 BP 125/62 01/23/21 21:43 Pulse Ox 91 L 01/23/21 22:35 Body Mass Index 25.7 Appearance: Alert. Oriented X3. Mild acute distress. Eyes: Pupils equal, round and reactive to light. ENT: Pharynx normal. Neck: Normal inspection. Neck supple. CVS: tachycardic heart rate and rhythm. Pulses normal. Respiratory: Mild respiratory distress - tachypnea and retractions. Breath sounds diminished throughout with wheezes noted Abdomen: Soft and nontender. Skin: Skin warm and dry. Normal skin color. Normal skin turgor. Extremities: No lower extremity edema. No calf ttp Neuro: Oriented X 3. No motor deficit. No sensory deficit. Course Course Course Narrative: COPD exacerbation desaturates to 88% off O2 up to 93% on 2L NC - at this time will add on antibiotics for COPD and admit to the hospital MDM - SOB/Dyspnea MDM Narrative Medical decision making narrative: 60 yo female with HTN, COPD MCKAY, pneumonia here with onset of dyspnea and wheezing upon waking this afternoon her sats at home were 88% - she just had an exacerbation this month earlier and was on steroids. She denies chest pain. She has been suffering from back spasms. Labs, cultures, CXR, IV steroids, 5mg neb, FLU/RSV/COVID swab. Dispo per results and findings. Lab Data Result diagrams: 01/23/21 21:18 01/23/21 21:55 Labs: Lab Results 01/23/21 01/23/21 01/23/21 Range/Units 21:18 21:18 21:18 WBC 10.9 H (4.8-10.8) X10*3/uL RBC 5.23 (4.20-5.50) X10*6/uL Hgb 15.4 (12.0-16.0) g/dl Hct 46.3 (37-47) % MCV 88.5 (80-98) fL MCH 29.4 (27.0-33.0) pg MCHC 33.3 (31.0-35.0) g/dl RDW 12.7 (11.0-16.0) % Plt Count 265 (160-400) X10*3/uL MPV 10.3 (9.4-12.3) fL Immature Gran % (Auto) 0.4 (0.0-0.4) % Neut % (Auto) 42.1 L (45-73) % Lymph % (Auto) 41.0 H (20-40) % [place] % (Auto) 7.1 (2-11) % Eos % (Auto) 8.4 H (0-4) % Baso % (Auto) 1.0 (0-2) % Lymph # (Auto) 4.5 (1.2-4.9) X10*3/uL [place] # (Auto) 0.8 (0.1-1.2) X10*3/uL Eos # (Auto) 0.9 H (0.0-0.4) X10*3/uL Baso # (Auto) 0.1 (0.0-0.2) X10*3/uL Abs Immat Gran (auto) 0.04 H (0.00-0.03) X10*3/uL Absolute Neuts (auto) 4.6 (2.0-8.3) X10*3/uL Absolute Nucleated RBC 0.000 (0.0-0.012) X10*3/uL Nucleated RBC % (auto) 0.0 (0.0-0.2) /100WBC Sodium (135-145) mmol/L Potassium (3.3-5.1) mmol/L Chloride (96-108) mmol/L Carbon Dioxide (22-29) mmol/L Anion Gap (12-20) BUN (9-16) mg/dL Creatinine (0.5-1.4) mg/dL Estim Creat Clear Calc Estimated GFR Random Glucose (60-115) mg/dL Lactic Acid 1.9 (0.5-2.0) mmol/L Calcium (8.4-10.2) mg/dL Magnesium Troponin I High Sens 5.4 (<3.5-17.0) ng/L B-Natriuretic Peptide 31 (<100) pg/mL Coronavirus (PCR) (Negative) Influenza Type A (PCR) (Negative) Influenza Type B (PCR) (Negative) RSV RNA Qual (PCR) (Negative) 01/23/21 01/23/21 01/23/21 Range/Units 21:20 21:21 21:55 WBC (4.8-10.8) X10*3/uL RBC (4.20-5.50) X10*6/uL Hgb (12.0-16.0) g/dl Hct (37-47) % MCV (80-98) fL MCH (27.0-33.0) pg MCHC (31.0-35.0) g/dl RDW (11.0-16.0) % Plt Count (160-400) X10*3/uL MPV (9.4-12.3) fL Immature Gran % (Auto) (0.0-0.4) % Neut % (Auto) (45-73) % Lymph % (Auto) (20-40) % [place] % (Auto) (2-11) % Eos % (Auto) (0-4) % Baso % (Auto) (0-2) % Lymph # (Auto) (1.2-4.9) X10*3/uL [place] # (Auto) (0.1-1.2) X10*3/uL Eos # (Auto) (0.0-0.4) X10*3/uL Baso # (Auto) (0.0-0.2) X10*3/uL Abs Immat Gran (auto) (0.00-0.03) X10*3/uL Absolute Neuts (auto) (2.0-8.3) X10*3/uL Absolute Nucleated RBC (0.0-0.012) X10*3/uL Nucleated RBC % (auto) (0.0-0.2) /100WBC Sodium 144 (135-145) mmol/L Potassium 3.8 (3.3-5.1) mmol/L Chloride 108 (96-108) mmol/L Carbon Dioxide 25 (22-29) mmol/L Anion Gap 15 (12-20) BUN 10 (9-16) mg/dL Creatinine 0.79 (0.5-1.4) mg/dL Estim Creat Clear Calc 73.5 Estimated GFR > 60 Random Glucose 165 H (60-115) mg/dL Lactic Acid (0.5-2.0) mmol/L Calcium 9.2 (8.4-10.2) mg/dL Magnesium Cancelled 1.6 Troponin I High Sens (<3.5-17.0) ng/L B-Natriuretic Peptide (<100) pg/mL Coronavirus (PCR) NEGATIVE (Negative) Influenza Type A (PCR) NEGATIVE (Negative) Influenza Type B (PCR) NEGATIVE (Negative) RSV RNA Qual (PCR) NEGATIVE (Negative) ECG Data Attestation: I personally reviewed and interpreted this ECG as follows: ECG interpretation date: 01/23/21 ECG interpretation time: 21:14 Interpretation: Rate: 103 Rhythm: sinus tachycardia Godley: left Normal P waves. Normal LESVIA. incomp RBBB ST T wave : normal no ROZINA qTC: normal prior studies: no acute ischemia The study has been interpreted contemporaneously by me. . Discharge Plan Discharge Clinical Impression: Acute exacerbation of chronic obstructive airways disease Patient Disposition: Admitted As Inpatient Prescriptions: No Action Anoro Ellipta 62.5-25 mcg/actuation blister with device 1 inh inhalation DAILY Qty: 60 RF: 11 Trelegy Ellipta 200-62.5-25 mcg blister with device 1 inh inhalation DAILY 30 Days Qty: 60 RF: 12 ipratropium-albuterol 0.5 mg-3 mg(2.5 mg base)/3 mL solution for nebulization 3 ml inhalation QID Qty: 180 RF: 0 albuterol sulfate 90 mcg/actuation HFA aerosol inhaler 2 puff PO Q4-6H PRN (Reason: for wheezing) Qty: 8.5 RF: 11 Chantix Continuing Month Box 1 mg tablet 1 mg PO BID 28 Days Qty: 56 RF: 2 budesonide 0.5 mg/2 mL suspension for nebulization 0.5 mg inhalation DAILY Qty: 60 RF: 11 Daliresp 500 mcg tablet 500 mcg PO DAILY Qty: 30 RF: 11 ondansetron HCl [Zofran] 4 mg tablet 4 mg PO Q8H PRN (Reason: nausea and vomiting) Qty: 10 RF: 0 dicyclomine 20 mg tablet 20 mg PO QID PRN (Reason: pain (scale score 4-6)) Qty: 14 RF: 0 levofloxacin 500 mg tablet 500 mg PO DAILY 5 Days Qty: 5 RF: 0 prednisone 10 mg tablets,dose pack 10 mg PO PER PKG DIR Qty: 48 RF: 0 (DME) FreeStyle Lite Strips Strip See Rx Instructions ea Not Applicable TID Qty: 10 RF: 0 insulin aspart U-100 [Novolog Flexpen U-100 Insulin] 100 unit/mL (3 mL) insulin pen See Rx Instructions subcut TID RF: 0 Lantus Solostar U-100 Insulin 100 unit/mL (3 mL) insulin pen 35 unit subcut BID RF: 0 lactulose 10 gram/15 mL solution 15 ml PO DAILY PRN (Reason: constipation) RF: 0 Combivent Respimat 20-100 mcg/actuation mist 2 puff inhalation QID RF: 0 Trelegy Ellipta 100-62.5-25 mcg blister with device 1 inh inhalation DAILY 30 Days Qty: 60 RF: 11 trazodone 50 mg tablet 50 mg PO BEDTIME PRN (Reason: sleep) Qty: 30 RF: 11 oxycodone-acetaminophen 7.5-325 mg tablet 1 tab PO TID PRNRF: 0 omeprazole 20 mg capsule,delayed release(DR/EC) 20 mg PO BID RF: 0 aspirin 81 mg tablet,delayed release (DR/EC) 81 mg PO DAILY RF: 0 cyclobenzaprine 5 mg tablet 5 mg PO TID PRNRF: 0 carvedilol 6.25 mg tablet 6.25 mg PO BID RF: 0 gabapentin 100 mg capsule 100 mg PO BEDTIME RF: 0 atorvastatin 80 mg tablet 80 mg PO BEDTIME RF: 0 (DME) pen needle, diabetic 32 gauge x 5/32 needle See Rx Instructions ea .ROUTE .MEDSUPPLY Qty: 50 RF: 0 montelukast 10 mg tablet 10 mg PO BEDTIME RF: 0 cetirizine 10 mg tablet 10 mg PO DAILY RF: 0 naproxen 500 mg tablet 500 mg PO BID RF: 0 doxycycline hyclate 100 mg capsule 100 mg PO BID 10 Days Qty: 20 RF: 0 Chantix Starting Month Box 0.5 mg (11)- 1 mg (42) tablets,dose pack See Rx Instructions PO PER PKG DIR 30 Days Qty: 53 RF: 0 cholecalciferol (vitamin D3) 50 mcg (2,000 unit) capsule 50 mcg PO DAILY 90 Days Qty: 90 RF: 1
[2021-01-23] MEDS: Albuterol Sulfate (0.083%) 2.5 MG/3 ML VIAL.NEB 5 MG INHALE (21:18)
--- NOTE | 2021-01-23 21:23 | PC.NURSE ---
20g in R forearm placed by float RN EKG obtained by qa techmarlene Bellamy labwork obtained and sent to lab by this nurse RT at bedside starting treatment
[2021-01-23 21:25] LABS: MANUAL DIFF FLAG NO
[2021-01-23 21:27] LABS: Basophils Absolute Auto 0.1 X10*3/uL (0.0-0.2); Eosinophils Absolute Auto 0.9 X10*3/uL (0.0-0.4); Eosinophils Percent Auto 8.4 % (0-4); Hematocrit 46.3 % (37-47); Hemoglobin 15.4 g/dl (12.0-16.0); Imm Gran Abs Auto 0.04 X10*3/uL (0.00-0.03); Imm Gran Pct Auto 0.4 % (0.0-0.4); Lymphocytes Absolute Auto 4.5 X10*3/uL (1.2-4.9); Mean Corpuscular HGB Conc 33.3 g/dl (31.0-35.0); Mean Corpuscular Hemoglobin 29.4 pg (27.0-33.0); Mean Corpuscular Volume 88.5 fL (80-98); Mean Platelet Volume 10.3 fL (9.4-12.3); Monocytes Absolute Auto 0.8 X10*3/uL (0.1-1.2); Monocytes Percent Auto 7.1 % (2-11); Neutrophils Absolute Auto 4.6 X10*3/uL (2.0-8.3); Neutrophils Percent Auto 42.1 % (45-73); Platelet Count 265 X10*3/uL (160-400); Red Blood Count 5.23 X10*6/uL (4.20-5.50); Red Cell Distribution Width 12.7 % (11.0-16.0); White Blood Count 10.9 X10*3/uL (4.8-10.8)
[2021-01-23] MEDS: methylPREDNISolone Sod Succ 125 MG/2 ML VIAL IVPUSH (21:28)
[2021-01-23] MEDS: HYDROcodone/Homat 5/1.5/5 ML 5 ML SYRUP PO (21:31)
--- NOTE | 2021-01-23 21:35 | PC.NURSE ---
pt medicated per MAR pt currently in bed in [employer] getting neb tx, no distress noted. pt on monitor. call hanley in reach.
[2021-01-23 21:44] LABS: Lactic Acid 1.9 mmol/L (0.5-2.0)
[2021-01-23 21:55] LABS: B Type Natriuretic Peptide 31 pg/mL (<100); Troponin-I High Sensitivity 5.4 ng/L (<3.5-17.0)
[2021-01-23 22:13] LABS: Influenza A PCR NEGATIVE (Negative); Influenza B PCR NEGATIVE (Negative); Resp Syncy Virus RNA Qual PCR NEGATIVE (Negative); SARS COV2 PCR INHOUSE NEGATIVE (Negative)
[2021-01-23 22:17] LABS: Anion Gap 15 (12-20); Blood Urea Nitrogen 10 mg/dL (9-16); Calcium 9.2 mg/dL (8.4-10.2); Carbon Dioxide 25 mmol/L (22-29); Chloride 108 mmol/L (96-108); Creatinine Clr Calc Pharmacy 73.5; Estimated Glomerular Filt Rate > 60; Glucose Random 165 mg/dL (60-115); Magnesium 1.6 mg/dL (1.6-2.6); Potassium 3.8 mmol/L (3.3-5.1); Sodium 144 mmol/L (135-145)
--- NOTE | 2021-01-23 22:31 | PC.NURSE ---
this nurse at beside per MD, pt to have NC 02 turned off to see how pt 02 sat is on room air pt decreased to 91% on room air while sitting up in bed, sat staying at 91-93% on room air. pt remains asymptomatic. when asked if she feels short of breath pt states so-so notified
--- NOTE | 2021-01-23 22:38 | PC.NURSE ---
per MD pt to be ambulated with 02 sat probe on to see if pt can maintain 02 sats while ambulating. instrument/control technician Dottie ambulating pt
--- NOTE | 2021-01-23 22:44 | PC.NURSE ---
Ambulated pt without o2 and pt sats were 88% pt was sob. was made aware,pt was placed on 2L of o2 .
[2021-01-23] MEDS: cefTRIAXone sodium 1 GM in 0.9 % Sodium Chloride 50 ML IV (22:55)
--- NOTE | 2021-01-23 22:58 | P.HPHOSP_ITS ---
History of Present Illness Date of Service: 01/23/21 Chief Complaint: Shortness of breath 60-year-old female with a past medical history of hypertension, hyperlipidemia, diabetes, COPD, GERD presented to the hospital with a chief complaint of shortness of breath. Patient reported that this morning she woke up and noted to have oxygen saturation of 88%; she tried to use her home nebulizers and subsequently oxygen saturation improved to 90s but still felt short of breath and dyspnea on exertion. Patient denies any chest pain palpitations lightheadedness or dizziness. Hence decided to come to the ER for further evaluation. Mentioned that her usual oxygen saturation is around 96%. Denies any fever chills cough or sputum production. Denies any GI or symptoms. Review of all other systems is negative except mentioned above ER course: Per ER team patient on presentation noted to have wheezing, diminished breath sounds, mild respiratory distress given nebulizations and steroids; patient on ambulation desaturated to 88%; admitted to the hospital for COPD exacerbation.; EKG was nonischemic; troponin negative. Admitted for further management [facility] Medical History Atelectasis COPD (chronic obstructive pulmonary disease) Goiter Multinodular goiter Pneumonia Pulmonary nodules Subclinical hyperthyroidism Vitamin D deficiency Family History Father No problems noted. Mother No problems noted. Paternal Aunt Diabetes Pertinent family history: As mentioned above Surgical History History of back surgery History of cholecystectomy History of tonsillectomy History of ureterostomy S/P lumpectomy, right breast Social History Alcohol intake: never Patient Tobacco Use Status: Current everyday Tobacco user Use of substances other than those prescribed or required for medical reasons: Yes Substance Use Type: Marijuana Advance Directives: No Meds Allergies Allergy/AdvReac Type Severity Reaction Status Date / Time HANK Inhibitors Allergy Severe ANGIO Verified 12/10/20 10:12 [HANK INHIBITORS] EDEMA enalapril Allergy Severe Anaphylaxis Verified 12/10/20 10:12 erythromycin base Allergy Severe HIVES ALL Verified 12/10/20 10:12 [ERYTHROMYCIN BASE] OVER hydromorphone [From DILAUDID] AdvReac Severe TINGLING, Verified 12/10/20 10:12 PT DOES NOT LIKE THE FEELING MED GIVES HER Active Medications: Current Medications Acetaminophen (Acetaminophen 325 Mg Tablet) 650 mg PO Q6H PRN PRN Reason: Pain, Mild (Pain Scale 1-3) Albuterol Sulfate (Albuterol Sulfate (0.083%) 2.5 Mg/3 Ml Vial.Neb) 2.5 mg INHALE Q2H PRN PRN Reason: Shortness of Breath/Wheezing Stop: 01/31/21 09:00 Albuterol/Ipratropium (Albuterol/Iprat 2.5/0.5mg 3 Ml Ampul.Neb) 3 ml INHALE RQ4H WHILE AWAKE [facility] Doxycycline Hyclate (Doxycycline Hyclate 100 Mg Tablet) 100 mg PO Q12H [facility] Enoxaparin Sodium (Enoxaparin Sodium 40 Mg/0.4 Ml Syringe) 40 mg SUBCUT Q24H [facility] Ceftriaxone Sodium 1 gm/ (Sodium Chloride) 50 mls @ 100 mls/hr IV ONCE ONE Stop: 01/23/21 23:10 Last Admin: 01/23/21 22:55 Dose: 100 mls/hr Documented by: Doxycycline Hyclate 100 mg/ (Sodium Chloride) 250 mls @ 166.67 mls/hr IV ONCE ONE Stop: 01/24/21 00:10 Melatonin (Melatonin 3 Mg Tablet) 6 mg PO BEDTIME PRN PRN Reason: Insomnia Methylprednisolone Sodium Succinate (Methylprednisolone Sod Succ 40 Mg/Ml Vial) 40 mg IVPUSH Q6H [facility] Pharmacy Consult (Consult Rx Perform Med Rec) 1 each MISCELLANE ONCE PRN PRN Reason: Consult order Senna (Sennosides 8.6 Mg Tablet) 17.2 mg PO BEDTIME PRN PRN Reason: Constipation Sodium Chloride (0.9 % Sodium Chloride Flush 3 Ml Syringe) 3 ml IVFLUSH QSHIFT [facility] Home Medications Medication Instructions Recorded Confirmed Last Taken Type aspirin 81 mg tablet,delayed 81 mg PO DAILY 12/24/19 01/23/21 01/23/21 09:30 History release atorvastatin 80 mg tablet 80 mg PO BEDTIME 12/24/19 01/23/21 01/23/21 09:30 History carvedilol 6.25 mg tablet 6.25 mg PO BID 12/24/19 01/23/21 01/23/21 09:30 History cetirizine 10 mg tablet 10 mg PO DAILY 12/24/19 01/23/21 01/23/21 09:30 History cyclobenzaprine 5 mg tablet 5 mg PO TID PRN 12/24/19 01/23/21 01/23/21 09:30 History gabapentin 100 mg capsule 100 mg PO BEDTIME 12/24/19 01/23/21 01/23/21 09:30 History montelukast 10 mg tablet 10 mg PO BEDTIME 12/24/19 01/23/21 01/23/21 09:30 History omeprazole 20 mg capsule,delayed 20 mg PO BID 12/24/19 01/23/21 01/23/21 09:30 History release oxycodone-acetaminophen 7.5 mg-325 1 tab PO TID PRN 12/24/19 01/23/21 01/23/21 09:30 History mg tablet pen needle, diabetic 32 gauge x #50 ea 12/24/19 12/10/20 Unknown History insulin aspart U-100 100 unit/mL See Rx Instructions SUBCUT TID ml 01/02/20 01/23/21 01/23/21 09:30 History (3 mL) subcutaneous pen (Novolog Flexpen U-100 Insulin aspart) insulin glargine 100 unit/mL (3 35 unit SUBCUT BID ml 01/02/20 01/23/21 01/23/21 09:30 History mL) subcutaneous pen (Lantus Solostar U-100 Insulin) ipratropium 20 mcg-albuterol 100 2 puff INHALATION QID g 01/02/20 01/23/21 01/23/21 09:30 History mcg/actuation mist for inhalation (Combivent Respimat) lactulose 10 gram/15 mL oral 15 ml PO DAILY PRN 01/02/20 01/23/21 01/23/21 09:30 History solution blood sugar diagnostic #10 ea 02/27/20 12/10/20 Unknown History naproxen 500 mg tablet 500 mg PO BID 03/09/20 12/10/20 Unknown History Physical Exam Vital Signs and Narrative: Vital Signs: Last Vital Signs Temp 98.3 F 01/23/21 21:43 Pulse 100 01/23/21 22:46 Resp 24 H 01/23/21 22:46 BP 125/62 01/23/21 21:43 Pulse Ox 88 L 01/23/21 22:46 Body Mass Index 25.7 Gen: Appears be in no acute distress HEENT: NCAT, Moist mucosa. Pulmonary: Bilateral expiratory wheezing noted CVS: Normal S1-S2 Abdomen: BS+, Soft, Nontender Extremities: Warm well perfused Neuro: Alert and awake. Results Labs CBC and Chem 7: 01/23/21 21:18 01/23/21 21:55 Labs: Laboratory Results - last 24 hr 01/23/21 01/23/21 01/23/21 21:18 21:18 21:18 MCV 88.5 MCH 29.4 MCHC 33.3 RDW 12.7 Plt Count 265 MPV 10.3 Immature Gran % (Auto) 0.4 Neut % (Auto) 42.1 L Lymph % (Auto) 41.0 H [place] % (Auto) 7.1 Eos % (Auto) 8.4 H Baso % (Auto) 1.0 Lymph # (Auto) 4.5 [place] # (Auto) 0.8 Eos # (Auto) 0.9 H Baso # (Auto) 0.1 Abs Immat Gran (auto) 0.04 H Absolute Neuts (auto) 4.6 Absolute Nucleated RBC 0.000 Nucleated RBC % (auto) 0.0 Anion Gap Estim Creat Clear Calc Estimated GFR Random Glucose Lactic Acid 1.9 Calcium Magnesium Troponin I High Sens 5.4 B-Natriuretic Peptide 31 Coronavirus (PCR) Influenza Type A (PCR) Influenza Type B (PCR) RSV RNA Qual (PCR) 01/23/21 01/23/21 01/23/21 21:20 21:21 21:55 MCV MCH MCHC RDW Plt Count MPV Immature Gran % (Auto) Neut % (Auto) Lymph % (Auto) [place] % (Auto) Eos % (Auto) Baso % (Auto) Lymph # (Auto) [place] # (Auto) Eos # (Auto) Baso # (Auto) Abs Immat Gran (auto) Absolute Neuts (auto) Absolute Nucleated RBC Nucleated RBC % (auto) Anion Gap 15 Estim Creat Clear Calc 73.5 Estimated GFR > 60 Random Glucose 165 H Lactic Acid Calcium 9.2 Magnesium Cancelled 1.6 Troponin I High Sens B-Natriuretic Peptide Coronavirus (PCR) NEGATIVE Influenza Type A (PCR) NEGATIVE Influenza Type B (PCR) NEGATIVE RSV RNA Qual (PCR) NEGATIVE Imaging Radiologist's Impressions: Impressions Chest X-Ray 01/23/21 20:47 IMPRESSION: No dense consolidation. Bronchial wall thickening can be seen with a small airways process such as asthma or atypical/viral infection. Assessment and Plan (1) Acute exacerbation of chronic obstructive airways disease: Status: Acute 60-year-old female with a past medical history of COPD-not on home oxygen; MCKAY; hypertension, hyperlipidemia, diabetes, GERD presented to the hospital with a chief complaint of shortness of breath. Noted to be in COPD exacerbation. Admitted for further management. COPD exacerbation: Shortness will monitor Continue nebulizations standing and p.r.n. Doxycycline Supplemental oxygen p.r.n. with goal oxygen saturation 93% Exercise pulse oximetry History of hypertension/hyperlipidemia: Continue home carvedilol, statin Diabetes: Insulin sliding scale plus Lantus 20 units b.i.d.. For all other chronic conditions, home medications will be continued DVT prophylaxis: Lovenox Code status: Full code Quality Stroke Does the patient have a stroke diagnosis?: No VTE Prior VTE?: No VTE Risk Level:: Medical - moderate - high VTE Device Contraindication: Treatment Not Indicated VTE Drug Contraindication: N/A - Med Ordered
[2021-01-23] MEDS: Doxycycline Hyclate 100 MG in 0.9 % Sodium Chloride 250 ML 166.67 MG IV (23:17)
--- NOTE | 2021-01-23 23:25 | PC.NURSE ---
hospitalist (Oliver) at bedside for admission eval per hospitalist, pt goals for 02 sat is 89-93% on 2L NC
[2021-01-23 23:27] LABS: D Dimer < 200 NG/ML
[2021-01-23 23:41] LABS: Troponin-I High Sensitivity 4.4 ng/L (<3.5-17.0)
[2021-01-24] VITALS (12 sets, daily range): BP systolic 123–150; BP diastolic 58–83; PULSE 88–106; RESP 14–24; TEMP 36.4–36.7; O2SAT 89–98
--- NOTE | 2021-01-24 | ECG_ITS ---
Test Reason : sob Blood Pressure : / mmHG Vent. Rate : 095 BPM Atrial Rate : 095 BPM P-R Int : 164 ms QRS Dur : 092 ms QT Int : 370 ms P-R-T Axes : 073 037 048 degrees QTc Int : 464 ms Normal sinus rhythm Incomplete right bundle branch block Nonspecific T wave abnormality Inferior leads Abnormal ECG When compared with ECG of 23-JAN-2021 21:07, No significant change was found Referred By: Ramos Sykes Electronically Signed By:MEENAKSHI LOTT MD
[2021-01-24] MEDS: Enoxaparin Sodium 40 MG/0.4 ML SYRINGE SUBCUT ×2 (00:23→21:42)
[2021-01-24 01:21] LABS: Appearance Urine HAZY; Color Urine YELLOW; Glucose Urine UA 500 MG/DL (NEG); Leukocyte Esterase Urine TRACE (NEG); Nitrite Urine NEG (NEG); PH 5.5 (5.0-8.0); Specific Gravity - Urine >= 1.030 (1.005-1.025); UACC Culture Trigger YES; Urine Blood 2+ (NEG); Urine Ketones 5 MG/DL (NEG); Urine Protein NEG (NEG-TRACE)
[2021-01-24] MEDS: TiZANidine HCL 4 MG TABLET PO ×3 (01:22→19:24)
[2021-01-24] MEDS: oxyCODONE HCl Immed Release 5 MG TABLET 7.5 MG PO ×4 (01:22→20:15)
[2021-01-24] MEDS: Acetaminophen 325 MG TABLET PO ×2 (01:22→20:16)
[2021-01-24 01:28] LABS: Bacteria Urine 3+ /LPF; RBC Urine 0-2 /HPF (0); Squamous Epithelial Cell Urine 3+ /LPF
--- NOTE | 2021-01-24 04:31 | PC.NURSE ---
pt called this nurse into room and requested to have her POC done. POC = [id number] this nurse was asked by pt to clarify insulin orders in MAR. per pt, she takes 35 units of Lantus in the morning and 35 units of Lantus at night if also taking prednisone/steroids [facility]list notified of difference in MAR as well as to see if pt needs insulin coverage at this moment.
[2021-01-24 04:34] LABS: Glucose, Whole Blood 369 mg/dL (60-115)
--- NOTE | 2021-01-24 04:38 | PC.NURSE ---
per Hospitalist, Lantus 20 units ordered for 0900 and 2100 is adequate dosage at this time. pt notified by this nurse that order will remain unchanged at this time. per provider pt to receive Insulin Lispro (Humalog) per sliding scale at this time.
[2021-01-24] MEDS: Insulin Lispro 100 UNIT/ML 3 ML VIAL SUBCUT ×7 (04:46→21:39)
--- NOTE | 2021-01-24 04:48 | PC.NURSE ---
pt given 10 units Humalog SQ based on sliding scale as unscheduled does per provider order
--- NOTE | 2021-01-24 05:34 | PC.NURSE ---
POC = 360 Hospitalist notified
[2021-01-24 05:37] LABS: Glucose, Whole Blood 360 mg/dL (60-115)
[2021-01-24] MEDS: methylPREDNISolone Sod Succ 40 MG/ML VIAL IVPUSH ×2 (05:54→16:54)
--- NOTE | 2021-01-24 05:58 | PC.NURSE ---
pt ambulated to bathroom without oxygen nc on. upon returning to room, pt was short of breath and c/o chest tightness. 02 sat was 89% on room air when returning to room. Nasal cannula applied at 2L, sat increased to 91% on 2L NC. pt medicated with 0600 scheduled solu-medrol per MAY. respiratory paged to bedside to administer neb treatment. hospitalist aware
[2021-01-24] MEDS: Albuterol Sulfate (0.083%) 2.5 MG/3 ML VIAL.NEB INHALE (06:00)
--- NOTE | 2021-01-24 06:11 | PC.NURSE ---
Hospitalist ordered 5 units Humalog SQ for continued elevated blood sugar. this nurse clarified with provider if he wants the 5 units given now or to wait until after POC recheck at (0645). per hospitalist, recheck POC at 0645, if POC is >250 then given 5 units, if <250 then hold 5 units and chart against it.
[2021-01-24 06:45] LABS: Glucose, Whole Blood 338 mg/dL (60-115)
[2021-01-24 07:32] LABS: MANUAL DIFF FLAG NO
[2021-01-24 07:33] LABS: Basophils Percent Auto 0.4 % (0-2); Hematocrit 45.2 % (37-47); Hemoglobin 15.1 g/dl (12.0-16.0); Imm Gran Abs Auto 0.02 X10*3/uL (0.00-0.03); Imm Gran Pct Auto 0.3 % (0.0-0.4); Lymphocytes Absolute Auto 1.2 X10*3/uL (1.2-4.9); Lymphocytes Percent Auto 15.7 % (20-40); Mean Corpuscular HGB Conc 33.4 g/dl (31.0-35.0); Mean Corpuscular Hemoglobin 29.2 pg (27.0-33.0); Mean Corpuscular Volume 87.4 fL (80-98); Mean Platelet Volume 10.5 fL (9.4-12.3); Monocytes Absolute Auto 0.1 X10*3/uL (0.1-1.2); Monocytes Percent Auto 0.8 % (2-11); Neutrophils Absolute Auto 6.3 X10*3/uL (2.0-8.3); Neutrophils Percent Auto 82.8 % (45-73); Platelet Count 263 X10*3/uL (160-400); Red Blood Count 5.17 X10*6/uL (4.20-5.50); Red Cell Distribution Width 12.6 % (11.0-16.0); White Blood Count 7.6 X10*3/uL (4.8-10.8)
[2021-01-24 07:35] LABS: Glucose, Whole Blood 328 mg/dL (60-115)
[2021-01-24 08:00] LABS: Blood Urea Nitrogen 13 mg/dL (9-16); Calcium 9.2 mg/dL (8.4-10.2); Carbon Dioxide 24 mmol/L (22-29); Chloride 106 mmol/L (96-108); Creatinine Clr Calc Pharmacy 66.7; Estimated Glomerular Filt Rate > 60; Glucose Random 347 mg/dL (60-115); Sodium 141 mmol/L (135-145); Troponin-I High Sensitivity 3.5 ng/L (<3.5-17.0)
[2021-01-24 08:11] LABS: Anion Gap 17 (12-20); Potassium 4.6 mmol/L (3.3-5.1)
--- NOTE | 2021-01-24 08:27 | PHA.MEDREC ---
Pharmacy Consult ? Medication Reconciliation Pharmacy has completed the medication reconciliation. I spoke to the patient who states she takes several medications around the clock to manage her pain including Oxycodone-APAP, Tizanidine and Gabapentin. She also takes Senna, Docusate, and Lactulose to maintain bowel movements. She states that her insulin doses depend on whether she is on steroids or not. She takes 30 units of Lantus BID normally and then 35 units BID if on steroids. Her sliding scale is 4-10 units TID as well.
[2021-01-24] MEDS: Insulin Glargine,Hum.rec.anlog 100 UNIT/ML 10 ML VIAL 20 UNIT SUBCUT (10:21)
[2021-01-24] MEDS: Loratadine 10 MG TABLET PO (10:23)
[2021-01-24] MEDS: Cholecalciferol (Vitamin D3) 25 MCG TABLET 50 MCG PO (10:23)
[2021-01-24] MEDS: Aspirin Enteric Coated 81 MG TABLET.DR PO (10:24)
[2021-01-24] MEDS: carvediloL 6.25 MG TABLET PO ×2 (10:24→19:36)
[2021-01-24] MEDS: Omeprazole 20 MG CAPSULE.DR PO ×2 (10:25→19:35)
[2021-01-24 10:37] LABS: Glucose, Whole Blood 380 mg/dL (60-115)
[2021-01-24 11:27] LABS: Glucose, Whole Blood 362 mg/dL (60-115)
--- NOTE | 2021-01-24 12:17 | HO.PM.IMPN ---
Subjective Subjective Date of Service: 01/24/21 <DEBORAH Fuentes - Last Filed: 01/24/21 12:25> 01/24/21 <Con Gaona MD - Last Filed: 01/24/21 16:25> Interval History: Seen and examined this morning Follow-up for acute COPD exacerbation Patient states she woke up after a nap feeling short of breath. <DEBORAH Fuentes - Last Filed: 01/24/21 12:25> Review of Systems Review of Systems: Yes all other systems are reviewed and are negative <DEBORAH Fuentes - Last Filed: 01/24/21 12:25> Constitutional Constitutional: Denies chills and Denies fever(s) <DEBORAH Fuentes - Last Filed: 01/24/21 12:25> Cardiovascular Cardiovascular: Denies chest pain <DEBORAH Fuentes - Last Filed: 01/24/21 12:25> Gastrointestinal Gastrointestinal: Denies abdominal pain <DEBORAH Fuentes - Last Filed: 01/24/21 12:25> Physical Exam Vital Signs: Vital Signs: Last Vital Signs Temp 97.5 F 01/24/21 11:18 Pulse 94 01/24/21 11:18 Resp 19 01/24/21 11:18 BP 136/65 01/24/21 11:18 Pulse Ox 92 01/24/21 11:18 Body Mass Index 25.7 <DEBORAH Fuentes - Last Filed: 01/24/21 12:25> Resp: Other: scattered expiratory wheezing, <DBEORAH Fuentes - Last Filed: 01/24/21 12:25> Auscultation: diminished lung sounds <DEBORAH Fuentes - Last Filed: 01/24/21 12:25> Extrem: Other: no leg edema <DEBORAH Fuentes - Last Filed: 01/24/21 12:25> Objective Data Active Medications Acetaminophen (Acetaminophen 325 Mg Tablet) 650 mg PO Q6H PRN PRN Reason: Pain, Mild (Pain Scale 1-3) Acetaminophen (Acetaminophen 325 Mg Tablet) 325 mg PO TID PRN PRN Reason: GIVE WITH OXYCODONE Last Admin: 01/24/21 01:22 Dose: 325 mg Documented by: ALMA Albuterol Sulfate (Albuterol Sulfate (0.083%) 2.5 Mg/3 Ml Vial.Neb) 2.5 mg INHALE Q2H PRN PRN Reason: Shortness of Breath/Wheezing Stop: 01/31/21 09:00 Last Admin: 01/24/21 06:00 Dose: 2.5 mg Documented by: YUNIEL Albuterol/Ipratropium (Albuterol/Iprat 2.5/0.5mg 3 Ml Ampul.Neb) 3 ml INHALE RQ4H WHILE AWAKE [facility] Last Admin: 01/24/21 07:41 Dose: Not Given Documented by: JOSE Non-Admin Reason: given at 0700 Albuterol/Ipratropium (Albuterol/Iprat 2.5/0.5mg 3 Ml Ampul.Neb) 3 ml INHALE QID [facility] Last Admin: 01/24/21 07:41 Dose: Not Given Documented by: JOSE Non-Admin Reason: duplicate order Aspirin (Aspirin Enteric Coated 81 Mg Tablet.) 81 mg PO DAILY [facility] Last Admin: 01/24/21 10:24 Dose: 81 mg Documented by: AMBROCIO Atorvastatin Calcium (Atorvastatin Calcium 80 Mg Tablet) 80 mg PO BEDTIME [facility] Carvedilol (Carvedilol 6.25 Mg Tablet) 6.25 mg PO BID [facility]; Protocol Last Admin: 01/24/21 10:24 Dose: 6.25 mg Documented by: AMBROCIO Cyclobenzaprine HCl (Cyclobenzaprine Hcl 5 Mg Tablet) 5 mg PO TID PRN PRN Reason: Pain, Mild Dextrose (Dextrose 50 % 25 Gm/50 Ml Vial) 25 gm IVPUSH Q15M PRN; Protocol PRN Reason: per Hypoglycemia Standing Ord. Doxycycline Hyclate (Doxycycline Hyclate 100 Mg Tablet) 100 mg PO Q12H [facility] Last Admin: 01/24/21 10:25 Dose: 100 mg Documented by: AMBROCIO Enoxaparin Sodium (Enoxaparin Sodium 40 Mg/0.4 Ml Syringe) 40 mg SUBCUT Q24H [facility] Last Admin: 01/24/21 00:23 Dose: 40 mg Documented by: ALMA Gabapentin (Gabapentin 100 Mg Capsule) 100 mg PO BEDTIME [facility] Glucose (Glucose Gel 15 Gm Gel..Gram.) 15 gm PO Q15M PRN; Protocol PRN Reason: per Hypoglycemia Standing Ord. Insulin Glargine (Insulin Glargine,Hum.Rec.Anlog 100 Unit/Ml 10 Ml Vial) 30 unit SUBCUT BID [facility] Insulin Human Lispro (Insulin Lispro 100 Unit/Ml 3 Ml Vial) 0 unit SUBCUT QIDACHS [facility]; Protocol Last Admin: 01/24/21 11:47 Dose: 10 unit Documented by: AMBROCIO Lactulose (Lactulose 20 Gm/30 Ml Solution) 10 gm PO DAILY PRN PRN Reason: constipation Loratadine (Loratadine 10 Mg Tablet) 10 mg PO DAILY [facility] Last Admin: 01/24/21 10:23 Dose: 10 mg Documented by: AMBROCIO Melatonin (Melatonin 3 Mg Tablet) 6 mg PO BEDTIME PRN PRN Reason: Insomnia Methylprednisolone Sodium Succinate (Methylprednisolone Sod Succ 40 Mg/Ml Vial) 40 mg IVPUSH Q6H [facility] Last Admin: 01/24/21 05:54 Dose: 40 mg Documented by: ALMA Montelukast Sodium (Montelukast Sodium 10 Mg Tablet) 10 mg PO BEDTIME [facility] Omeprazole (Omeprazole 20 Mg Capsule.Dr) 20 mg PO BID [facility] Last Admin: 01/24/21 10:25 Dose: 20 mg Documented by: AMBROCIO Oxycodone HCl (Oxycodone Hcl Immed Release 5 Mg Tablet) 7.5 mg PO QID PRN PRN Reason: MILD PAIN Last Admin: 01/24/21 07:45 Dose: 7.5 mg Documented by: HELENE Pharmacy Consult (Consult Rx Perform Med Rec) 1 each MISCELLANE ONCE PRN PRN Reason: Consult order Senna (Sennosides 8.6 Mg Tablet) 17.2 mg PO BEDTIME PRN PRN Reason: Constipation Sodium Chloride (0.9 % Sodium Chloride Flush 3 Ml Syringe) 3 ml IVFLUSH QSHIFT [facility] Last Admin: 01/24/21 08:02 Dose: Not Given Documented by: HELENE Non-Admin Reason: No Access Tizanidine HCl (Tizanidine Hcl 4 Mg Tablet) 4 mg PO Q8H PRN PRN Reason: Muscle Spasm Last Admin: 01/24/21 09:19 Dose: 4 mg Documented by: HELENE Vitamin D (Cholecalciferol (Vitamin D3) 25 Mcg Tablet) 50 mcg PO DAILY [facility] Last Admin: 01/24/21 10:23 Dose: 50 mcg Documented by: AMBROCIO <DEBORAH Fuentes - Last Filed: 01/24/21 12:25> Labs CBC & Chem 7: : 01/24/21 06:54 01/24/21 06:54 <DEBORAH Fuentes - Last Filed: 01/24/21 12:25> Labs: Laboratory Results - last 24 hr 01/23/21 01/23/21 01/23/21 21:18 21:18 21:18 MCV 88.5 MCH 29.4 MCHC 33.3 RDW 12.7 Plt Count 265 MPV 10.3 Immature Gran % (Auto) 0.4 Neut % (Auto) 42.1 L Lymph % (Auto) 41.0 H Blanco % (Auto) 7.1 Eos % (Auto) 8.4 H Baso % (Auto) 1.0 Lymph # (Auto) 4.5 Blanco # (Auto) 0.8 Eos # (Auto) 0.9 H Baso # (Auto) 0.1 Abs Immat Gran (auto) 0.04 H Absolute Neuts (auto) 4.6 Absolute Nucleated RBC 0.000 Nucleated RBC % (auto) 0.0 D-Dimer Anion Gap Estim Creat Clear Calc Estimated GFR POC Glucose Random Glucose Lactic Acid 1.9 Calcium Magnesium Troponin I High Sens 5.4 B-Natriuretic Peptide 31 Urine Color Urine Appearance Urine pH Ur Specific Preemption Urine Protein Urine Glucose (UA) Urine Ketones Urine Blood Urine Nitrite Ur Leukocyte Esterase Urine RBC Urine WBC Ur Squamous Epith Cells Urine Bacteria Coronavirus (PCR) Influenza Type A (PCR) Influenza Type B (PCR) RSV RNA Qual (PCR) 01/23/21 01/23/21 01/23/21 21:20 21:21 21:55 MCV MCH MCHC RDW Plt Count MPV Immature Gran % (Auto) Neut % (Auto) Lymph % (Auto) Blanco % (Auto) Eos % (Auto) Baso % (Auto) Lymph # (Auto) Blanco # (Auto) Eos # (Auto) Baso # (Auto) Abs Immat Gran (auto) Absolute Neuts (auto) Absolute Nucleated RBC Nucleated RBC % (auto) D-Dimer Anion Gap 15 Estim Creat Clear Calc 73.5 Estimated GFR > 60 POC Glucose Random Glucose 165 H Lactic Acid Calcium 9.2 Magnesium Cancelled 1.6 Troponin I High Sens B-Natriuretic Peptide Urine Color Urine Appearance Urine pH Ur Specific Preemption Urine Protein Urine Glucose (UA) Urine Ketones Urine Blood Urine Nitrite Ur Leukocyte Esterase Urine RBC Urine WBC Ur Squamous Epith Cells Urine Bacteria Coronavirus (PCR) NEGATIVE Influenza Type A (PCR) NEGATIVE Influenza Type B (PCR) NEGATIVE RSV RNA Qual (PCR) NEGATIVE 01/23/21 01/23/21 01/24/21 23:08 23:08 01:16 MCV MCH MCHC RDW Plt Count MPV Immature Gran % (Auto) Neut % (Auto) Lymph % (Auto) Blanco % (Auto) Eos % (Auto) Baso % (Auto) Lymph # (Auto) Blanco # (Auto) Eos # (Auto) Baso # (Auto) Abs Immat Gran (auto) Absolute Neuts (auto) Absolute Nucleated RBC Nucleated RBC % (auto) D-Dimer < 200 Anion Gap Estim Creat Clear Calc Estimated GFR POC Glucose Random Glucose Lactic Acid Calcium Magnesium Troponin I High Sens 4.4 B-Natriuretic Peptide Urine Color YELLOW Urine Appearance HAZY Urine pH 5.5 Ur Specific Preemption >= 1.030 H Urine Protein NEG Urine Glucose (UA) 500 H Urine Ketones 5 Urine Blood 2+ H Urine Nitrite NEG Ur Leukocyte Esterase TRACE H Urine RBC 0-2 Urine WBC 5-9 H Ur Squamous Epith Cells 3+ Urine Bacteria 3+ Coronavirus (PCR) Influenza Type A (PCR) Influenza Type B (PCR) RSV RNA Qual (PCR) 01/24/21 01/24/21 01/24/21 04:25 05:33 06:41 MCV MCH MCHC RDW Plt Count MPV Immature Gran % (Auto) Neut % (Auto) Lymph % (Auto) Blanco % (Auto) Eos % (Auto) Baso % (Auto) Lymph # (Auto) Blanco # (Auto) Eos # (Auto) Baso # (Auto) Abs Immat Gran (auto) Absolute Neuts (auto) Absolute Nucleated RBC Nucleated RBC % (auto) D-Dimer Anion Gap Estim Creat Clear Calc Estimated GFR POC Glucose 369 H* 360 H* 338 H Random Glucose Lactic Acid Calcium Magnesium Troponin I High Sens B-Natriuretic Peptide Urine Color Urine Appearance Urine pH Ur Specific Preemption Urine Protein Urine Glucose (UA) Urine Ketones Urine Blood Urine Nitrite Ur Leukocyte Esterase Urine RBC Urine WBC Ur Squamous Epith Cells Urine Bacteria Coronavirus (PCR) Influenza Type A (PCR) Influenza Type B (PCR) RSV RNA Qual (PCR) 01/24/21 01/24/21 01/24/21 06:54 06:54 06:54 MCV 87.4 MCH 29.2 MCHC 33.4 RDW 12.6 Plt Count 263 MPV 10.5 Immature Gran % (Auto) 0.3 Neut % (Auto) 82.8 H Lymph % (Auto) 15.7 L Blanco % (Auto) 0.8 L Eos % (Auto) 0.0 Baso % (Auto) 0.4 Lymph # (Auto) 1.2 Blanco # (Auto) 0.1 Eos # (Auto) 0.0 Baso # (Auto) 0.0 Abs Immat Gran (auto) 0.02 Absolute Neuts (auto) 6.3 Absolute Nucleated RBC 0.000 Nucleated RBC % (auto) 0.0 D-Dimer Anion Gap 17 Estim Creat Clear Calc 66.7 Estimated GFR > 60 POC Glucose Random Glucose 347 H Lactic Acid Calcium 9.2 Magnesium Troponin I High Sens 3.5 B-Natriuretic Peptide Urine Color Urine Appearance Urine pH Ur Specific Preemption Urine Protein Urine Glucose (UA) Urine Ketones Urine Blood Urine Nitrite Ur Leukocyte Esterase Urine RBC Urine WBC Ur Squamous Epith Cells Urine Bacteria Coronavirus (PCR) Influenza Type A (PCR) Influenza Type B (PCR) RSV RNA Qual (PCR) 01/24/21 01/24/21 01/24/21 07:30 10:15 11:23 MCV MCH MCHC RDW Plt Count MPV Immature Gran % (Auto) Neut % (Auto) Lymph % (Auto) Blanco % (Auto) Eos % (Auto) Baso % (Auto) Lymph # (Auto) Blanco # (Auto) Eos # (Auto) Baso # (Auto) Abs Immat Gran (auto) Absolute Neuts (auto) Absolute Nucleated RBC Nucleated RBC % (auto) D-Dimer Anion Gap Estim Creat Clear Calc Estimated GFR POC Glucose 328 H 380 H* 362 H* Random Glucose Lactic Acid Calcium Magnesium Troponin I High Sens B-Natriuretic Peptide Urine Color Urine Appearance Urine pH Ur Specific Preemption Urine Protein Urine Glucose (UA) Urine Ketones Urine Blood Urine Nitrite Ur Leukocyte Esterase Urine RBC Urine WBC Ur Squamous Epith Cells Urine Bacteria Coronavirus (PCR) Influenza Type A (PCR) Influenza Type B (PCR) RSV RNA Qual (PCR) <DEBORAH Fuentes - Last Filed: 01/24/21 12:25> Assessment and Plan (1) Acute exacerbation of chronic obstructive airways disease: Status: Acute <DEBORAH Fuentes - Last Filed: 01/24/21 12:25> (2) Acute hypoxemic respiratory failure: Status: Acute <DEBORAH Fuentes - Last Filed: 01/24/21 12:25> Assessment and Plan: 60-year-old female with a past medical history of COPD-not on home oxygen; MCKAY; hypertension, hyperlipidemia, diabetes, GERD presented to the hospital with a chief complaint of shortness of breath. Noted to be in COPD exacerbation. Admitted for further management. Acute respiratory failure with hypoxia secondary to Acute COPD exacerbation Continue nebulizations standing and p.r.n. Continue systemic steroids Continue Doxycycline Supplemental oxygen as needed, wean as tolerated outpt chest CT showing soft tissue thickening involving the right anterior the trachea Outpatient follow-up recommended hypertension Continue carvedilol hyperlipidemia Continue statin Diabetes: Uncontrolled likely due to steroid use Lantus was decreased on admission, will increase to 30 b.i.d. SSI, ADA diet DVT prophylaxis: Lovenox Code status: Full code Attending: Dr. Gaona <DEBORAH Fuentes - Last Filed: 01/24/21 12:25> 60-year-old female with a past medical history of COPD-not on home oxygen; MCKAY; hypertension, hyperlipidemia, diabetes, GERD presented to the hospital with a chief complaint of shortness of breath. Noted to be in COPD exacerbation. Admitted for further management. Acute respiratory failure with hypoxia secondary to Acute COPD exacerbation Continue nebulizations standing and p.r.n. Continue systemic steroids Continue Doxycycline Supplemental oxygen as needed, wean as tolerated outpt chest CT showing soft tissue thickening involving the right anterior the trachea Outpatient follow-up recommended hypertension Continue carvedilol hyperlipidemia Continue statin Diabetes: Uncontrolled likely due to steroid use Lantus was decreased on admission, will increase to 30 b.i.d. SSI, ADA diet DVT prophylaxis: Lovenox Code status: Full code Attending: Dr. Gaona Attending Attestation: Patient seen and examined. Case discussed with the mid-level provider. Agree with the assessment and plan as documented above with the following additions to the Exam: Gen - awake and alert CVS - S1S2, RRR Abd - soft, nt / nd neuro - non-focal <Con Gaona MD - Last Filed: 01/24/21 16:25> Quality Stroke Does the patient have a stroke diagnosis?: No <DEBORAH Fuentes - Last Filed: 01/24/21 12:25> VTE Prior VTE?: No <DEBORAH Fuentes - Last Filed: 01/24/21 12:25> VTE Risk Level:: Medical - moderate - high <DEBORAH Fuentes - Last Filed: 01/24/21 12:25> VTE Device Contraindication: Treatment Not Indicated <DEBORAH Fuentes - Last Filed: 01/24/21 12:25> VTE Drug Contraindication: N/A - Med Ordered <DEBORAH Fuentes - Last Filed: 01/24/21 12:25>
[2021-01-24] MEDS: Albuterol/Iprat 2.5/0.5MG 3 ML AMPUL.NEB INHALE ×3 (13:22→20:44)
--- NOTE | 2021-01-24 13:22 | PC.NURSE ---
Skin assessment completed. No skin issues or open areas noted at this time.
[2021-01-24] MEDS: Nicotine 14 MG PATCH.TD24 TRANSDERMA (13:39)
[2021-01-24] MEDS: Acetaminophen 325 MG TABLET 650 MG PO (13:49)
[2021-01-24] MEDS: Lactulose 20 GM/30 ML SOLUTION 10 GM PO (13:49)
[2021-01-24] MEDS: Sennosides 8.6 MG TABLET 17.2 MG PO (13:49)
[2021-01-24 16:47] LABS: Glucose, Whole Blood 277 mg/dL (60-115)
[2021-01-24] MEDS: 0.9 % Sodium Chloride Flush 3 ML SYRINGE IVFLUSH ×2 (16:54→21:43)
[2021-01-24] MEDS: Atorvastatin Calcium 80 MG TABLET PO (19:35)
[2021-01-24] MEDS: Docusate Sodium 100 MG CAPSULE PO (19:36)
[2021-01-24] MEDS: Gabapentin 100 MG CAPSULE PO (19:36)
[2021-01-24] MEDS: Montelukast Sodium 10 MG TABLET PO (19:37)
[2021-01-24] MEDS: Lidocaine 4 % Patch ADH..PATCH 1 PATCH TRANSDERMA (20:16)
[2021-01-24 21:31] LABS: Glucose, Whole Blood 297 mg/dL (60-115)
[2021-01-24] MEDS: Melatonin 3 MG TABLET 6 MG PO (21:38)
[2021-01-24] MEDS: Insulin Glargine,Hum.rec.anlog 100 UNIT/ML 10 ML VIAL 30 UNIT SUBCUT (21:40)
[2021-01-25] VITALS (11 sets, daily range): BP systolic 114–157; BP diastolic 59–80; PULSE 74–98; RESP 16–18; TEMP 36.3–36.6; O2SAT 95–97; BMI 25.7
[2021-01-25] MEDS: Albuterol Sulfate (0.083%) 2.5 MG/3 ML VIAL.NEB INHALE (01:28)
[2021-01-25] MEDS: methylPREDNISolone Sod Succ 40 MG/ML VIAL IVPUSH ×2 (05:55→18:02)
[2021-01-25] MEDS: oxyCODONE HCl Immed Release 5 MG TABLET 7.5 MG PO ×3 (05:55→23:07)
[2021-01-25] MEDS: TiZANidine HCL 4 MG TABLET PO ×3 (05:56→23:08)
[2021-01-25] MEDS: Acetaminophen 325 MG TABLET PO (05:57)
[2021-01-25 07:15] LABS: Glucose, Whole Blood 271 mg/dL (60-115)
[2021-01-25] MEDS: Albuterol/Iprat 2.5/0.5MG 3 ML AMPUL.NEB INHALE ×4 (07:40→20:29)
[2021-01-25] MEDS: Loratadine 10 MG TABLET PO (08:20)
[2021-01-25] MEDS: Nicotine 14 MG PATCH.TD24 TRANSDERMA (08:21)
[2021-01-25] MEDS: Cholecalciferol (Vitamin D3) 25 MCG TABLET 50 MCG PO (08:21)
[2021-01-25] MEDS: Omeprazole 20 MG CAPSULE.DR PO ×2 (08:21→20:56)
[2021-01-25] MEDS: Insulin Lispro 100 UNIT/ML 3 ML VIAL SUBCUT ×4 (08:23→20:59)
[2021-01-25] MEDS: Insulin Glargine,Hum.rec.anlog 100 UNIT/ML 10 ML VIAL 30 UNIT SUBCUT ×2 (08:24→21:00)
[2021-01-25] MEDS: 0.9 % Sodium Chloride Flush 3 ML SYRINGE IVFLUSH ×3 (08:25→20:59)
[2021-01-25] MEDS: Aspirin Enteric Coated 81 MG TABLET.DR PO (08:38)
[2021-01-25] MEDS: carvediloL 6.25 MG TABLET PO ×2 (10:19→20:59)
[2021-01-25 11:58] LABS: Glucose, Whole Blood 335 mg/dL (60-115)
--- NOTE | 2021-01-25 13:13 | HO.PM.IMPN ---
Subjective Subjective Date of Service: 01/25/21 <DEBORAH Fuentes - Last Filed: 01/25/21 13:20> 01/25/21 <Con Gaona MD - Last Filed: 01/25/21 14:06> Interval History: Seen and examined this morning Follow-up for COPD exacerbation breathing improving <DEBORAH Fuentes - Last Filed: 01/25/21 13:20> Review of Systems Review of Systems: Yes all other systems are reviewed and are negative <DEBORAH Fuentes - Last Filed: 01/25/21 13:20> Constitutional Constitutional: Denies chills and Denies fever(s) <DEBORAH Fuentes - Last Filed: 01/25/21 13:20> Cardiovascular Cardiovascular: Denies chest pain <DEBORAH Fuentes - Last Filed: 01/25/21 13:20> Gastrointestinal Gastrointestinal: Denies abdominal pain <DEBORAH Fuentes - Last Filed: 01/25/21 13:20> Physical Exam Vital Signs: Vital Signs: Last Vital Signs Temp 97.8 F 01/25/21 11:39 Pulse 83 01/25/21 11:39 Resp 18 01/25/21 11:39 BP 147/75 H 01/25/21 11:39 Pulse Ox 96 01/25/21 11:39 Body Mass Index 25.7 <DEBORAH Fuentes - Last Filed: 01/25/21 13:20> Const: General: alert and awake <DEBORAH Fuentes - Last Filed: 01/25/21 13:20> Nutritional Appearance: well nourished <DEBORAH Fuentes - Last Filed: 01/25/21 13:20> Orientation/consciousness: patient oriented x3 <DEBORAH Fuentes - Last Filed: 01/25/21 13:20> HENMT: Head: Yes normocephalic and Yes atraumatic <DEBORAH Fuentes - Last Filed: 01/25/21 13:20> Eyes: Sclerae: sclerae normal <DEBORAH Fuentes - Last Filed: 01/25/21 13:20> Resp: Other: scattered expiratory wheezing, <DEBORAH Fuentes - Last Filed: 01/25/21 13:20> Effort & Inspection: normal respiratory effort and no respiratory distress <DEBORAH Fuentes - Last Filed: 01/25/21 13:20> Auscultation: diminished lung sounds <DEBORAH Fuentes - Last Filed: 01/25/21 13:20> Cardio: Rate: regular rate <DEBORAH Fuentes - Last Filed: 01/25/21 13:20> Rhythm: regular rhythm <DEBORAH Fuentes - Last Filed: 01/25/21 13:20> GI: Palpation (GI): Soft to palpation and nontender <DEBORAH Fuentes - Last Filed: 01/25/21 13:20> Neuro: General: patient oriented x3 <DEBORAH Fuentes - Last Filed: 01/25/21 13:20> Cranial nerves: Yes CN's II-XII intact bilaterally and Yes Bilaterally intact EOM present <DEBORAH Fuentes - Last Filed: 01/25/21 13:20> Extrem: Other: no leg edema <DEBORAH Fuentes - Last Filed: 01/25/21 13:20> Objective Data Active Medications Acetaminophen (Acetaminophen 325 Mg Tablet) 650 mg PO Q6H PRN PRN Reason: Pain, Mild (Pain Scale 1-3) Last Admin: 01/24/21 13:49 Dose: 650 mg Documented by: AMBROCIO Acetaminophen (Acetaminophen 325 Mg Tablet) 325 mg PO TID PRN PRN Reason: GIVE WITH OXYCODONE Last Admin: 01/25/21 05:57 Dose: 325 mg Documented by: MADELYN Albuterol Sulfate (Albuterol Sulfate (0.083%) 2.5 Mg/3 Ml Vial.Neb) 2.5 mg INHALE Q2H PRN PRN Reason: Shortness of Breath/Wheezing Stop: 01/31/21 09:00 Last Admin: 01/25/21 01:28 Dose: 2.5 mg Documented by: KAYODE Albuterol/Ipratropium (Albuterol/Iprat 2.5/0.5mg 3 Ml Ampul.Neb) 3 ml INHALE RQ4H WHILE AWAKE [facility] Last Admin: 01/25/21 10:48 Dose: 3 ml Documented by: LATRICE Aspirin (Aspirin Enteric Coated 81 Mg Tablet.) 81 mg PO DAILY [facility] Last Admin: 01/25/21 08:38 Dose: 81 mg Documented by: YOSEF Atorvastatin Calcium (Atorvastatin Calcium 80 Mg Tablet) 80 mg PO BEDTIME [facility] Last Admin: 01/24/21 19:35 Dose: 80 mg Documented by: MADELYN Carvedilol (Carvedilol 6.25 Mg Tablet) 6.25 mg PO BID [facility]; Protocol Last Admin: 01/25/21 10:19 Dose: 6.25 mg Documented by: YOSEF Cyclobenzaprine HCl (Cyclobenzaprine Hcl 5 Mg Tablet) 5 mg PO TID PRN PRN Reason: Pain, Mild Dextrose (Dextrose 50 % 25 Gm/50 Ml Vial) 25 gm IVPUSH Q15M PRN; Protocol PRN Reason: per Hypoglycemia Standing Ord. Docusate Sodium (Docusate Sodium 100 Mg Capsule) 100 mg PO BEDTIME [facility] Last Admin: 01/24/21 19:36 Dose: 100 mg Documented by: MADELYN Doxycycline Hyclate (Doxycycline Hyclate 100 Mg Tablet) 100 mg PO Q12H [facility] Last Admin: 01/25/21 08:21 Dose: 100 mg Documented by: YOSEF Enoxaparin Sodium (Enoxaparin Sodium 40 Mg/0.4 Ml Syringe) 40 mg SUBCUT Q24H [facility] Last Admin: 01/24/21 21:42 Dose: 40 mg Documented by: MADELYN Gabapentin (Gabapentin 100 Mg Capsule) 100 mg PO BEDTIME [facility] Last Admin: 01/24/21 19:36 Dose: 100 mg Documented by: MADELYN Glucose (Glucose Gel 15 Gm Gel..Gram.) 15 gm PO Q15M PRN; Protocol PRN Reason: per Hypoglycemia Standing Ord. Insulin Glargine (Insulin Glargine,Hum.Rec.Anlog 100 Unit/Ml 10 Ml Vial) 30 unit SUBCUT BID [facility] Last Admin: 01/25/21 08:24 Dose: 30 unit Documented by: YOSEF Insulin Human Lispro (Insulin Lispro 100 Unit/Ml 3 Ml Vial) 0 unit SUBCUT QIDACHS [facility]; Protocol Last Admin: 01/25/21 11:52 Dose: 6 unit Documented by: YOSEF Lactulose (Lactulose 20 Gm/30 Ml Solution) 10 gm PO DAILY PRN PRN Reason: constipation Last Admin: 01/24/21 13:49 Dose: 10 gm Documented by: AMBROCIO Lidocaine (Lidocaine 4 % Patch Adh..Patch) 1 patch TRANSDERMA DAILY [facility]; Protocol Last Admin: 01/25/21 09:20 Dose: Not Given Documented by: YOSEF Non-Admin Reason: given at 11pm last night Loratadine (Loratadine 10 Mg Tablet) 10 mg PO DAILY [facility] Last Admin: 01/25/21 08:20 Dose: 10 mg Documented by: YOSEF Melatonin (Melatonin 3 Mg Tablet) 6 mg PO BEDTIME PRN PRN Reason: Insomnia Last Admin: 01/24/21 21:38 Dose: 6 mg Documented by: MADELYN Methylprednisolone Sodium Succinate (Methylprednisolone Sod Succ 40 Mg/Ml Vial) 40 mg IVPUSH Q12H [facility] Stop: 01/25/21 23:59 Last Admin: 01/25/21 05:55 Dose: 40 mg Documented by: MADELYN Montelukast Sodium (Montelukast Sodium 10 Mg Tablet) 10 mg PO BEDTIME [facility] Last Admin: 01/24/21 19:37 Dose: 10 mg Documented by: MADELYN Nicotine (Nicotine 14 Mg Patch.Td24) 14 mg TRANSDERMA DAILY [facility] Last Admin: 01/25/21 08:21 Dose: 14 mg Documented by: YOSEF Patient Own Med ([ Trelegy Ellipta] 100 -62.5-25 Mcg) 1 each PO DAILY [facility] Last Admin: 01/25/21 07:42 Dose: 1 each Documented by: LATRICE Omeprazole (Omeprazole 20 Mg Capsule.Dr) 20 mg PO BID [facility] Last Admin: 01/25/21 08:21 Dose: 20 mg Documented by: YOSEF Oxycodone HCl (Oxycodone Hcl Immed Release 5 Mg Tablet) 7.5 mg PO QID PRN PRN Reason: MILD PAIN Last Admin: 01/25/21 05:55 Dose: 7.5 mg Documented by: MADELYN Pharmacy Consult (Consult Rx Perform Med Rec) 1 each MISCELLANE ONCE PRN PRN Reason: Consult order Prednisone (Prednisone 20 Mg Tablet) 40 mg PO DAILY [facility] Senna (Sennosides 8.6 Mg Tablet) 17.2 mg PO BEDTIME PRN PRN Reason: Constipation Last Admin: 01/24/21 13:49 Dose: 17.2 mg Documented by: AMBROCIO Sodium Chloride (0.9 % Sodium Chloride Flush 3 Ml Syringe) 3 ml IVFLUSH QSHIFT [facility] Last Admin: 01/25/21 08:25 Dose: 3 ml Documented by: YOSEF Tizanidine HCl (Tizanidine Hcl 4 Mg Tablet) 4 mg PO Q8H PRN PRN Reason: Muscle Spasm Last Admin: 01/25/21 05:56 Dose: 4 mg Documented by: MADELYN Vitamin D (Cholecalciferol (Vitamin D3) 25 Mcg Tablet) 50 mcg PO DAILY [facility] Last Admin: 01/25/21 08:21 Dose: 50 mcg Documented by: YOSEF <DEBORAH Fuentes - Last Filed: 01/25/21 13:20> Labs CBC & Chem 7: : 01/24/21 06:54 01/24/21 06:54 <DEBORAH Fuentes - Last Filed: 01/25/21 13:20> Labs: Laboratory Results - last 24 hr 01/24/21 01/24/21 01/25/21 16:36 21:21 07:08 POC Glucose 277 H 297 H 271 H 01/25/21 11:54 POC Glucose 335 H <DEBORAH Fuentes - Last Filed: 01/25/21 13:20> Microbiology Microbiology Results: Microbiology 01/24/21 Unknown Urine Culture - Final Urine clean catch - Urine hernández top 01/23/21 21:23 Blood Culture - Preliminary Blood - Venous No growth after 24 hours. 01/23/21 21:21 Blood Culture - Preliminary Blood - Venous No growth after 24 hours. <DEBORAH Fuentes - Last Filed: 01/25/21 13:20> Assessment and Plan (1) Acute hypoxemic respiratory failure: Status: Acute <DEBORAH Fuentes - Last Filed: 01/25/21 13:20> (2) Acute exacerbation of chronic obstructive airways disease: Status: Acute <DEBORAH Fuentes - Last Filed: 01/25/21 13:20> Assessment and Plan: 60-year-old female with a past medical history of COPD-not on home oxygen; MCKAY; hypertension, hyperlipidemia, diabetes, GERD presented to the hospital with a chief complaint of shortness of breath. Noted to be in COPD exacerbation. Admitted for further management. Acute respiratory failure with hypoxia secondary to Acute COPD exacerbation wean o2 as tolerated Continue nebulizations standing and p.r.n. Will transition to po prednisone starting in am Continue Doxycycline 2/5 days Supplemental oxygen as needed, wean as tolerated outpt chest CT showing soft tissue thickening involving the right anterior the trachea Outpatient follow-up recommended hypertension Continue carvedilol hyperlipidemia Continue statin Diabetes: Uncontrolled likely due to steroid use Lantus was decreased on admission, will increase to 30 b.i.d. SSI, ADA diet DVT prophylaxis: Lovenox Code status: Full code Attending: Dr. Gaona <DEBORAH uFentes - Last Filed: 01/25/21 13:20> Quality Stroke Does the patient have a stroke diagnosis?: No <DEBORAH Fuentes - Last Filed: 01/25/21 13:20> VTE Prior VTE?: No <DEBORAH Fuentes - Last Filed: 01/25/21 13:20> VTE Risk Level:: Medical - moderate - high <DEBORAH Fuentes - Last Filed: 01/25/21 13:20> VTE Device Contraindication: Treatment Not Indicated <DEBORAH Fuentes - Last Filed: 01/25/21 13:20> VTE Drug Contraindication: N/A - Med Ordered <DEBORAH Fuenets - Last Filed: 01/25/21 13:20>
--- NOTE | 2021-01-25 13:59 | MHC.CM.PN ---
IMM 01/25/21, EMR REVIEWED PT ADMITTED W/COPD EXAC W/EXPECTED D/C TOMORROW 01/26/21, CM MET W/PT WHO IS INDEPENDENT AT BASELINE, NO DME AND NO HOME SERVICES, PT VERIFIES PCP MOHINI NAME AND HCP IS SHIRAZ TANG AND ON FILE FROM PREVIOUS VISIT. D/C PLAN: HOME NO SERVICES, FAMILY FOR TRANSPORT
[2021-01-25] MEDS: Lactulose 20 GM/30 ML SOLUTION 10 GM PO (15:08)
[2021-01-25] MEDS: Sennosides 8.6 MG TABLET 17.2 MG PO (15:09)
[2021-01-25 16:47] LABS: Glucose, Whole Blood 320 mg/dL (60-115)
[2021-01-25 20:32] LABS: Glucose, Whole Blood 277 mg/dL (60-115)
[2021-01-25] MEDS: Docusate Sodium 100 MG CAPSULE PO (20:56)
[2021-01-25] MEDS: Gabapentin 100 MG CAPSULE PO (20:56)
[2021-01-25] MEDS: Montelukast Sodium 10 MG TABLET PO (20:56)
[2021-01-25] MEDS: Atorvastatin Calcium 80 MG TABLET PO (20:57)
[2021-01-25] MEDS: Melatonin 3 MG TABLET 6 MG PO (23:08)
[2021-01-25] MEDS: Enoxaparin Sodium 40 MG/0.4 ML SYRINGE SUBCUT (23:09)
[2021-01-26] VITALS: BP 145/68; PULSE 83; RESP 16; TEMP 36.6; O2SAT 96
[2021-01-26 04:00] VITALS: BP 138/70; PULSE 80; RESP 16; TEMP 36.6; O2SAT 97
[2021-01-26 06:06] VITALS: PULSE 80; O2SAT 97
[2021-01-26 07:32] VITALS: BP 133/67; PULSE 67; RESP 18; TEMP 36.5; O2SAT 96
[2021-01-26 07:37] LABS: Glucose, Whole Blood 290 mg/dL (60-115)
[2021-01-26] MEDS: Insulin Lispro 100 UNIT/ML 3 ML VIAL SUBCUT (07:59)
[2021-01-26] MEDS: Insulin Glargine,Hum.rec.anlog 100 UNIT/ML 10 ML VIAL 30 UNIT SUBCUT (08:00)
[2021-01-26] MEDS: Nicotine 14 MG PATCH.TD24 TRANSDERMA (08:09)
[2021-01-26] MEDS: Cholecalciferol (Vitamin D3) 25 MCG TABLET 50 MCG PO (08:10)
[2021-01-26] MEDS: Aspirin Enteric Coated 81 MG TABLET.DR PO (08:10)
[2021-01-26] MEDS: carvediloL 6.25 MG TABLET PO (08:10)
[2021-01-26] MEDS: predniSONE 20 MG TABLET 40 MG PO (08:10)
[2021-01-26] MEDS: Loratadine 10 MG TABLET PO (08:11)
[2021-01-26] MEDS: 0.9 % Sodium Chloride Flush 3 ML SYRINGE IVFLUSH (08:11)
[2021-01-26] MEDS: Omeprazole 20 MG CAPSULE.DR PO (08:11)
[2021-01-26] MEDS: Albuterol/Iprat 2.5/0.5MG 3 ML AMPUL.NEB INHALE (09:32)
[2021-01-26 09:34] VITALS: PULSE 73; O2SAT 96
--- NOTE | 2021-01-26 10:28 | PM.DS ---
DS: Providers Provider Date of Service: 01/26/21 <Nadira White NP - Last Filed: 01/26/21 10:31> Date of admission: 01/23/21 22:50 <Nadira White NP - Last Filed: 01/26/21 10:31> Primary care physician: Bobby David MD <Nadira White NP - Last Filed: 01/26/21 10:31> Attending physician on discharge: Bobby Beck <Nadira White NP - Last Filed: 01/26/21 10:31> Discharging clinician: Nadira White <Nadira White NP - Last Filed: 01/26/21 10:31> DS: Diagnosis Discharge Diagnosis (1) Acute hypoxemic respiratory failure: Status: Acute <Nadira White NP - Last Filed: 01/26/21 10:31> (2) Acute exacerbation of chronic obstructive airways disease: Status: Acute <Nadira White NP - Last Filed: 01/26/21 10:31> DS: Summary Hospital Course Hospital Course: HP as per admitting provider 60-year-old female with a past medical history of hypertension, hyperlipidemia, diabetes, COPD, GERD presented to the hospital with a chief complaint of shortness of breath. Patient reported that this morning she woke up and noted to have oxygen saturation of 88%; she tried to use her home nebulizers and subsequently oxygen saturation improved to 90s but still felt short of breath and dyspnea on exertion.? Patient denies any chest pain palpitations lightheadedness or dizziness. Hence decided to come to the ER for further evaluation. Mentioned that her usual oxygen saturation is around 96%. Denies any fever chills cough or sputum production. Denies any GI or symptoms. Review of all other systems is negative except mentioned above ER course: Per ER team patient on presentation noted to have wheezing, diminished breath sounds, mild respiratory distress given nebulizations and steroids; patient on ambulation desaturated to 88%; admitted to the hospital for COPD exacerbation.; EKG was nonischemic; troponin negative.? Admitted for further management . Acute hypoxic respiratory failure secondary to COPD exacerbation. Treated with Solu-Medrol, scheduled DuoNebs, supplemental oxygen. At this point patient is not requiring any oxygen and is on room air. She was switched to oral doxycycline and prednisone. She has no shortness of breath. She will be discharged home with a few more days of prednisone and doxycycline. She can follow-up with her primary care provider as needed. <Nadira White NP - Last Filed: 01/26/21 10:31> Time Spent with Patient Time attestation: Total time spent providing and/or coordinating discharge services: <Nadira White NP - Last Filed: 01/26/21 10:31> Discharge coordination time: Greater than 30 minutes <Nadira White NP - Last Filed: 01/26/21 10:31> Quality: Stroke Does the patient have a stroke diagnosis?: No <Nadira White NP - Last Filed: 01/26/21 10:31> Physical Exam Vital Signs: Vital Signs: Last Vital Signs Temp 97.7 F 01/26/21 07:32 Pulse 73 01/26/21 09:34 Resp 18 01/26/21 07:32 BP 133/67 01/26/21 07:32 Pulse Ox 96 01/26/21 07:32 Body Mass Index 25.7 <Nadira White NP - Last Filed: 01/26/21 10:31> Appearing in no acute distress head is normocephalic atraumatic eyes pupils are PERRLA sclera is anicteric mouth throat mucous membranes are intact and moist neck is supple no lymphadenopathy, no JVD noted lung sounds are clear to auscultation heart regular rate rhythm, clear S1, S2 positive bowel sounds, abdomen is soft, nontender neuro patient is alert x3, no focal deficits <Nadira White NP - Last Filed: 01/26/21 10:31> DS: Data Data Completed and Pending Labs on day of discharge: Laboratory Results - last 24 hr 01/25/21 01/25/21 01/25/21 11:54 16:31 19:46 POC Glucose 335 H 320 H 277 H 01/26/21 07:30 POC Glucose 290 H Preliminary micro results at discharge 01/23/21 21:23 Blood Culture - Preliminary Blood - Venous No growth after 48 hours. 01/23/21 21:21 Blood Culture - Preliminary Blood - Venous No growth after 48 hours. <Nadira White NP - Last Filed: 01/26/21 10:31> Discharge Plan Discharge Anticipated Discharge Date/Time: 01/26/21 10:14 <Nadira White NP - Last Filed: 01/26/21 10:31> Patient Disposition: Home, Self-Care <Nadira White NP - Last Filed: 01/26/21 10:31> Discharge Diagnosis: COPD exacerbation <Nadira White NP - Last Filed: 01/26/21 10:31> COPD exacerbation <Bobby Beck MD - Last Filed: 01/26/21 16:39> Referrals: Name,MD Bobby [Primary Care Provider] - 02/05/21 1:00 pm (You have a telephone follow up appointment with Dr. Painter on February 05 at 1 pm. Your doctor will call you at the time of your appointment.) <Nadira White NP - Last Filed: 01/26/21 10:31> Discharge Medications: New prednisone 20 mg Tablet 40 mg PO DAILY Qty: 6 RF: 0 doxycycline hyclate 100 mg Tablet 100 mg PO Q12H Qty: 5 RF: 0 Continued ipratropium-albuterol 0.5 mg-3 mg(2.5 mg base)/3 mL solution for nebulization 3 ml inhalation QID Qty: 180 RF: 0 albuterol sulfate 90 mcg/actuation HFA aerosol inhaler 2 puff PO Q4-6H PRN (Reason: for wheezing) Qty: 8.5 RF: 11 budesonide 0.5 mg/2 mL suspension for nebulization 0.5 mg inhalation DAILY Qty: 60 RF: 11 tizanidine 4 mg tablet 1 tab PO Q8H RF: 0 lidocaine 5 % cream 1 appl topical BID RF: 0 Trelegy Ellipta 100-62.5-25 mcg blister with device 1 puff PO DAILY RF: 0 sennosides [senna] 8.6 mg tablet 1 tab PO DAILY RF: 0 docusate sodium 100 mg capsule 1 cap PO BEDTIME RF: 0 furosemide 20 mg tablet 1 tab PO DAILY PRN (Reason: Edema) RF: 0 Daliresp 500 mcg tablet 1 tab PO DAILY RF: 0 insulin aspart U-100 [Novolog Flexpen U-100 Insulin] 100 unit/mL (3 mL) insulin pen See Rx Instructions subcut TID RF: 0 Lantus Solostar U-100 Insulin 100 unit/mL (3 mL) insulin pen 30 - 35 unit subcut BID RF: 0 lactulose 10 gram/15 mL solution 15 ml PO DAILY PRN (Reason: constipation) RF: 0 Combivent Respimat 20-100 mcg/actuation mist 2 puff inhalation QID RF: 0 oxycodone-acetaminophen 7.5-325 mg tablet 1 tab PO Q6H RF: 0 omeprazole 20 mg capsule,delayed release(DR/EC) 20 mg PO BID RF: 0 aspirin 81 mg tablet,delayed release (DR/EC) 81 mg PO DAILY RF: 0 carvedilol 6.25 mg tablet 6.25 mg PO BID RF: 0 gabapentin 100 mg capsule 200 mg PO BEDTIME RF: 0 atorvastatin 80 mg tablet 80 mg PO BEDTIME RF: 0 montelukast 10 mg tablet 10 mg PO BEDTIME RF: 0 cetirizine 10 mg tablet 10 mg PO DAILY RF: 0 cholecalciferol (vitamin D3) 50 mcg (2,000 unit) capsule 50 mcg PO DAILY 90 Days Qty: 90 RF: 1 <Nadira White NP - Last Filed: 01/26/21 10:31> Discharge Orders: Discharge Order (Routine); Ordered 01/26/21 Ordered By: Nadira White <Nadira White NP - Last Filed: 01/26/21 10:31> Diet: advance to usual diet <Nadira White NP - Last Filed: 01/26/21 10:31> advance to usual diet <Bobby Beck MD - Last Filed: 01/26/21 16:39> Activity on Discharge: As tolerated <Nadira White NP - Last Filed: 01/26/21 10:31> As tolerated <Bobby Beck MD - Last Filed: 01/26/21 16:39> Stand Alone Forms: Patient Portal Discharge page <Nadira White NP - Last Filed: 01/26/21 10:31> Care Plan Goals: Complete resolution of symptoms <Nadira White NP - Last Filed: 01/26/21 10:31> Health Concerns: COPD exacerbation <Nadira White NP - Last Filed: 01/26/21 10:31> Plan of Treatment: Continue prednisone and doxycycline as prescribed. Follow up with your primary care provider. <Nadira White NP - Last Filed: 01/26/21 10:31> Assessment: See discharge summary ATTENDING ADDENDUM: I have seen and examined the patient on their discharge day.? I have reviewed, edited, and agree with the above discharge summary.? <Nadira White NP - Last Filed: 01/26/21 10:31> Discharge Date/Time: 01/26/21 11:38 <Nadira White NP - Last Filed: 01/26/21 10:31>
--- NOTE | 2021-01-26 10:32 | MHC.CM.PN ---
Addendum entered by Suly Jaeger 01/26/21 10:33: FAMILY TO TRANSPORT Original Note: PT TO DC HOME TODAY WITH NO SERVICES
== END 2021-01-26 11:38 | disposition home or self-care (01) | DRG 190 ==
LOC: HO.ED 22:46 → HO.EDOVER 23:03 → HO.S3 01-24 08:47
PROVIDERS: Physician Assistant Medical; Admitting Provider Hospitalist; Emergency Provider Emergency Medicine; PCP Internal Medicine Geriatric Medicine; Visit Provider Nurse Practitioner Acute Care
DX: J44.1 Chronic obstructive pulmonary disease with (acute) exacerbation (principal); J96.01 Acute respiratory failure with hypoxia; E78.5 Hyperlipidemia, unspecified; E11.65 Type 2 diabetes mellitus with hyperglycemia; F17.210 Nicotine dependence, cigarettes, uncomplicated; Z71.6 Tobacco abuse counseling; Z20.822 Contact with and (suspected) exposure to COVID-19; Z79.82 Long term (current) use of aspirin; Z79.4 Long term (current) use of insulin; Z79.899 Other long term (current) drug therapy
CPT/HCPCS: 0241U; 36415; 71045; 71250; 80048; 81001; 82947; 83605; 83735; 83880; 84439; 84443; 84480; 84484; 85025; 85379; 87040; 87086; 93005; 94640; 94644; 94664; 99285; J0696; J1650; J2920; J2930

== ENCOUNTER 2021-01-27 18:38 | Emergency (ER) | payer MEDICARE, MEDICAID, SELFPAY | END 2021-01-27 21:31 | disposition left against medical advice (07) | PROVIDERS: Emergency Provider Emergency Medicine; PCP Internal Medicine Geriatric Medicine | DX: K59.00 Constipation, unspecified (principal) ==

== ENCOUNTER → 2021-02-01 09:34 | Outpatient (BNVA) | payer MEDICARE, MEDICAID, SELFPAY | PROVIDERS: PCP Internal Medicine Geriatric Medicine; Visit Provider Hospitalist | DX: J44.9 Chronic obstructive pulmonary disease, unspecified (principal); J98.11 Atelectasis; G47.33 Obstructive sleep apnea (adult) (pediatric); R91.8 Other nonspecific abnormal finding of lung field; Q32.1 Other congenital malformations of trachea | CPT/HCPCS: 99212 ==

== ENCOUNTER 2021-02-07 06:51 | Day surgery (SDC) | payer MEDICARE, MEDICAID, SELFPAY ==
[2021-02-07] VITALS (7 sets, daily range): BP systolic 100–122; BP diastolic 47–70; PULSE 65–76; RESP 16–22; TEMP 35.9–36.6; O2SAT 97–99; BMI 25.0
[2021-02-07 07:20] LABS: Glucose, Whole Blood 157 mg/dL (60-115)
[2021-02-07] MEDS: Lactated Ringers 1,000 ML 50 ML IVCONT (07:21)
--- NOTE | 2021-02-07 08:09 | MHC.SHP ---
Pre-Procedural Eval Section A Date of Service: 02/07/21 The patient is an INPATIENT: No Changes since office visit: No Cold of Flu in the past 2 weeks, No New Medical Problems, No Changes in Medication and No Patient answered all questions The History & Physical has been completed within 30 days and I have reviewed it.: Yes Section B Chief Complaint: atelectasis Allergies: Allergies Allergy/AdvReac Type Severity Reaction Status Date / Time HANK Inhibitors Allergy Severe ANGIO Verified 02/01/21 09:40 [HANK INHIBITORS] EDEMA enalapril Allergy Severe Anaphylaxis Verified 02/01/21 09:40 erythromycin base Allergy Severe HIVES ALL Verified 02/01/21 09:40 [ERYTHROMYCIN BASE] OVER hydromorphone [From DILAUDID] AdvReac Severe TINGLING, Verified 02/01/21 09:40 PT DOES NOT LIKE THE FEELING MED GIVES HER Plan I have reviewed the history and physical and performed a pertinent physical examination on my patient. No changes have occurred unless specified.
--- NOTE | 2021-02-07 08:46 | P.BOP_ITS ---
Brief Operative Note Date of Service: 02/07/21 Pre-op diagnosis: tracheal lesion Post-op diagnosis: other (Rll lesion, bronchitis) Procedure: bronchoscopy Implants: Surgeon: Fidel White MD Anesthesia: GLMA Was an Lift Truck Operator used for this Procedure?: No Estimated blood loss (mL): 0 Pathology: other (Rll bx) Condition: stable Disposition: same day
--- NOTE | 2021-02-07 10:42 | P.CONAN_ITS ---
HPI - Anesthesia Eval Consult details Narrative: [age] female with a tracheal nodule presenting for bronchoscopy. No evidence of luminal obstruction or mass effect [facility] Active Problems Active Problems: All Active Problems (Updated 02/03/21 @ 20:45 by Fidel White MD) Tracheal anomaly (Acute) Multinodular goiter (Acute) Vitamin D deficiency (Acute) Atelectasis (Acute) Subclinical hyperthyroidism (Acute) MCKAY (obstructive sleep apnea) (Acute) Goiter (Acute) Pneumonia (Acute) Pulmonary nodules (Acute) COPD (chronic obstructive pulmonary disease) (Acute) Past Medical History Medical History (Updated 02/03/21 @ 20:45 by Fidel White MD) Atelectasis COPD (chronic obstructive pulmonary disease) Goiter Multinodular goiter Pneumonia Pulmonary nodules Subclinical hyperthyroidism Tracheal anomaly Vitamin D deficiency Family History Family History Father No problems noted. Mother No problems noted. Paternal Aunt Diabetes Family history of problems with anesthesia: No Surgical History Surgical History History of back surgery History of cholecystectomy History of tonsillectomy History of ureterostomy S/P lumpectomy, right breast History of Problems with Anesthesia: No Social History Social History Household Members: Spouse Housing: House Do you presently have visiting nurse or other home services: No Alcohol intake: never Patient Tobacco Use Status: Current everyday Tobacco user Tobacco use type: Cigarette e-Cigarette/Vaping Use: Currently Using Second Hand Smoke Exposure: No Substance Use Type: Marijuana Advance Directives Date on File: 01/24/21 service: No Current occupational status: retired Meds Allergies Allergy/AdvReac Type Severity Reaction Status Date / Time HANK Inhibitors Allergy Severe ANGIO Verified 02/01/21 09:40 [HANK INHIBITORS] EDEMA enalapril Allergy Severe Anaphylaxis Verified 02/01/21 09:40 erythromycin base Allergy Severe HIVES ALL Verified 02/01/21 09:40 [ERYTHROMYCIN BASE] OVER hydromorphone [From DILAUDID] AdvReac Severe TINGLING, Verified 02/01/21 09:40 PT DOES NOT LIKE THE FEELING MED GIVES HER Home Medications Medication Instructions Recorded Confirmed Last Taken Type aspirin 81 mg tablet,delayed 81 mg PO DAILY 12/24/19 01/23/21 01/23/21 09:30 History release atorvastatin 80 mg tablet 80 mg PO BEDTIME 12/24/19 01/23/21 01/23/21 09:30 History carvedilol 6.25 mg tablet 6.25 mg PO BID 12/24/19 01/23/21 01/23/21 09:30 History cetirizine 10 mg tablet 10 mg PO DAILY 12/24/19 01/23/21 01/23/21 09:30 History gabapentin 100 mg capsule 200 mg PO BEDTIME 12/24/19 01/24/21 01/23/21 09:30 History montelukast 10 mg tablet 10 mg PO BEDTIME 12/24/19 01/23/21 01/23/21 09:30 History omeprazole 20 mg capsule,delayed 20 mg PO BID 12/24/19 01/23/21 01/23/21 09:30 History release oxycodone-acetaminophen 7.5 mg-325 1 tab PO Q6H 12/24/19 01/24/21 01/23/21 09:30 History mg tablet insulin aspart U-100 100 unit/mL See Rx Instructions SUBCUT TID ml 01/02/20 01/23/21 01/23/21 09:30 History (3 mL) subcutaneous pen (Novolog Flexpen U-100 Insulin aspart) insulin glargine 100 unit/mL (3 30 - 35 unit SUBCUT BID ml 01/02/20 01/24/21 01/23/21 09:30 History mL) subcutaneous pen (Lantus Solostar U-100 Insulin) ipratropium 20 mcg-albuterol 100 2 puff INHALATION QID g 01/02/20 01/23/21 01/23/21 09:30 History mcg/actuation mist for inhalation (Combivent Respimat) lactulose 10 gram/15 mL oral 15 ml PO DAILY PRN 01/02/20 01/23/21 01/23/21 09:30 History solution docusate sodium 100 mg capsule 1 cap PO BEDTIME 01/24/21 01/24/21 Unknown History fluticasone fur. 100 mcg-umeclid 1 puff PO DAILY 01/24/21 01/24/21 Unknown History 62.5 mcg-vilant 25 mcg inhalat.powder (Trelegy Ellipta) furosemide 20 mg tablet 1 tab PO DAILY PRN 01/24/21 01/24/21 Unknown History lidocaine 5 % topical cream 1 appl TOPICAL BID 01/24/21 01/24/21 Unknown History roflumilast 500 mcg tablet 1 tab PO DAILY 01/24/21 01/24/21 Unknown History (Daliresp) sennosides 8.6 mg tablet (senna) 1 tab PO DAILY 01/24/21 01/24/21 Unknown History tizanidine 4 mg tablet 1 tab PO Q8H 01/24/21 01/24/21 1 Day Ago History ~01/23/21 Exam Exam Date and Time: February 07, 2021 1042 Height,Weight and Vital Signs: Height 5 ft 5 in Weight 150 lb Last Vital Signs Temp 97.9 F 02/07/21 09:29 Pulse 66 02/07/21 09:29 Resp 18 02/07/21 09:29 BP 121/62 02/07/21 09:29 Pulse Ox 99 02/07/21 09:29 Pertinent Lab Results Pertinent Lab Results: Laboratory Tests 02/07/21 07:16 POC Glucose 157 H Airway Mallampati Class: III TM Dist: >3cm Neck ROM: Full Denture: Upper and Lower Assessment and Plan Assessment Anesthesia Assessment: Anesthesia Plan Discussed and Chart Reviewed Final Anesthetic Review Family History of Problems with Anesthesia: No History of Problems with Anesthesia: No NPO: Yes ASA Class: III Final Preanesthetic Review: No Changes in Pt Med Stat, Meds/Allgs Chart Reviewed, Consent Obtained/Reviewed and Anes Risks/Benef Reviewed Patient Risk: Intermediate Procedure Risk: Intermediate Anesthetic Plan Anesthetic Plan: GA Disposition: Standard PACU
--- NOTE | 2021-02-11 23:35 | OP_ITS ---
SURGEON: Fidel White MD PREOPERATIVE DIAGNOSIS: Tracheal lesion. POSTOPERATIVE DIAGNOSIS: Right lower lobe lesion and bronchitis. PROCEDURE PERFORMED: Bronchoscopy. ESTIMATED BLOOD LOSS: COMPLICATIONS: ANESTHESIA: ASSISTANTS: SPECIMENS: FINDINGS: The patient initially was sedated and LMA was then placed. The flexible digital bronchoscope was inserted via the LMA to the level of the larynx. The vocal cords moved symmetrically to the midline without any lesions or masses. After instilling additional lidocaine, the bronchoscope was then passed to the proximal trachea. No significant issues with the mucosa of the trachea. No tracheal lesions to explain the findings on the CAT scan except for minimal irregularities to the tracheal mucosa. After instilling additional lidocaine, the bronchoscope was then passed to the entire tracheobronchial tree that was examined to the subsegmental level. She did have a small circumferential opaque area in the right lower lobe that appeared to be regular. Otherwise, no other endobronchial lesions or masses noted. No significant secretions. Bronchial washings were collected bilaterally. Then using forceps, endobronchial biopsies were collected from the right lower lobe lesion, were sent to pathology. No evidence of any bleeding after the procedure. Then, the bronchoscope was navigated upwards to the level of the proximal trachea just below the vocal cords and a cytologic brush was introduced and the area of trachea on the proximal right tracheal wall, it was brushed for cytology. Specimen sent to the pathology department. No evidence of any active bleeding. The patient did have some mucoid secretions throughout that were suctioned. The bronchoscope was then removed. The total endoscopic time approximately is 15 minutes. INTERPRETATION: 1. Bilateral lung washings. 2. Right lower lobe endobronchial biopsy of the right lower lobe endobronchial lesion. 3. Cytologic brushings of the proximal trachea. Fidel White MD MR/MODL / [id number]
== END 2021-02-07 10:18 | disposition home or self-care (01) ==
PROVIDERS: PCP Internal Medicine Geriatric Medicine; Visit Provider Hospitalist
PROC: 0BJ08ZZ Inspection of Tracheobronchial Tree, Via Natural or Artificial Opening Endoscopic (ICD-10-PCS; CPT 31622; principal; 2021-02-07 08:00)
DX: J98.11 Atelectasis (principal); J39.8 Other specified diseases of upper respiratory tract; J44.9 Chronic obstructive pulmonary disease, unspecified; R91.8 Other nonspecific abnormal finding of lung field; E55.9 Vitamin D deficiency, unspecified; Z79.52 Long term (current) use of systemic steroids; Z88.8 Allergy status to other drugs, medicaments and biological substances; F17.210 Nicotine dependence, cigarettes, uncomplicated
CPT/HCPCS: 31625; 31623; 82947; 87071; 87116; 87205; 88112; 88305; J0171; J1100; J2250; J2370; J2405; J3010

== ENCOUNTER → 2021-02-19 10:10 | Outpatient (BNVA) | payer MEDICARE, MEDICAID, SELFPAY | PROVIDERS: PCP Internal Medicine Geriatric Medicine; Visit Provider Hospitalist | DX: J44.9 Chronic obstructive pulmonary disease, unspecified (principal); G47.33 Obstructive sleep apnea (adult) (pediatric); J98.11 Atelectasis; J98.09 Other diseases of bronchus, not elsewhere classified; R91.8 Other nonspecific abnormal finding of lung field | CPT/HCPCS: 99212 ==

== ENCOUNTER → 2021-04-10 10:24 | Outpatient (BNVA) | payer MEDICARE, MEDICAID, SELFPAY | PROVIDERS: PCP Internal Medicine Geriatric Medicine; Visit Provider Internal Medicine | DX: E05.90 Thyrotoxicosis, unspecified without thyrotoxic crisis or storm (principal); E04.2 Nontoxic multinodular goiter; E55.9 Vitamin D deficiency, unspecified | CPT/HCPCS: Q3014 ==

== ENCOUNTER 2021-04-24 09:33 | Outpatient (REF) | payer MEDICARE, MEDICAID, SELFPAY ==
--- NOTE | ~2021-04-24 | MM_ITS ---
EXAMINATION: BONE DENSITOMETRY CLINICAL INDICATION: Encounter for screening for osteoporosis. COMPARISON: This is the patient's baseline examination. TECHNIQUE: Using a [employer] DXA System (software version: 13.1) manufactured by [employer], dual-energy x-ray absorptiometry was performed of the lumbar spine and left hip. The images are of good technical quality. Summary results are attached. FINDINGS: AP SPINE L1-L4: BMD 1.110 g/cm2, Z-score 0.6, T-score -0.6, normal. LEFT FEMUR, NECK: BMD 0.774 g/cm2, Z-score -0.7, T-score -1.9, osteopenia. LEFT FEMUR, TOTAL: BMD 0.808 g/cm2, Z-score -0.7, T-score -1.6, osteopenia. IDENTIFIED RISK FACTORS: Early menopause, secondary osteoporosis, tobacco use (current smoker), glucocorticoids (chronic). HISTORY OF FRACTURE: None listed. MEDICATIONS: Vitamin D. MM/XR DEXA axial skeleton IMPRESSION: 1. DIAGNOSIS: Osteopenia based on the lowest T-score value of -1.9 in the femoral neck applying World Health Organization criteria. 2. 10-YEAR FRACTURE RISK PREDICTION, FRAX: Major osteoporotic fracture (clinical spine, forearm, hip or shoulder) 16.1%. Hip fracture 3.8%. 3. Treatment Recommendations: NOF guidelines recommend consideration for treatment in postmenopausal women and men age 50 and older presenting with the following: -A hip or vertebral (clinical or morphometric) fracture. -T-score less than or equal to -2.5 at the femoral neck or spine after appropriate evaluation to exclude secondary causes. -Low bone mass at the hip or spine and a 10-year fracture probability by FRAX of greater than or equal to 3% for hip fracture or greater than or equal to 20% for major osteoporotic fracture based on the [place] adapted WHO algorithm. 4. Other Recommendations: All treatment decisions require clinical judgment and consideration of individual patient factors, including patient preferences, comorbidities, previous drug use, risk factors not captured in the FRAX model (e.g. frailty, falls, vitamin D deficiency, increased bone turnover, interval significant decline in bone density) and possible under or overestimation of fracture risk by FRAX. Additional medical evaluation for secondary cause of low bone mineral density may be appropriate. FUTURE SCAN RECOMMENDATION: People with diagnosed cases of osteoporosis or at high risk for fracture should have regular bone mineral density tests. For patients eligible for Medicare, routine testing is allowed once every 2 years. The testing frequency can be increased to one year for patients who have rapidly progressing disease, those who are receiving or discontinuing medical therapy to restore bone mass, or have additional risk factors.
[2021-04-24] MEDS: Lidocaine HCl 1 % 20 ML VIAL 10 ML SUBCUT (09:52)
[2021-04-24] MEDS: Sodium Bicarbonate 8.4% 50 MEQ/50 ML VIAL SUBCUT (09:55)
== END 2021-04-24 09:34 | disposition home or self-care (01) ==
LOC: HO.MAMMO 09:33
PROVIDERS: Visit Provider Internal Medicine Geriatric Medicine
DX: Z13.820 Encounter for screening for osteoporosis (principal); M85.80 Other specified disorders of bone density and structure, unspecified site; Z78.0 Asymptomatic menopausal state; Z79.899 Other long term (current) drug therapy; Z79.52 Long term (current) use of systemic steroids
CPT/HCPCS: 77080

== ENCOUNTER → 2021-08-20 09:17 | Outpatient (BNVA) | payer MEDICARE, MEDICAID, SELFPAY | PROVIDERS: PCP Internal Medicine Geriatric Medicine; Visit Provider Hospitalist | DX: J98.11 Atelectasis (principal); G47.33 Obstructive sleep apnea (adult) (pediatric); R91.8 Other nonspecific abnormal finding of lung field; J44.9 Chronic obstructive pulmonary disease, unspecified; J98.09 Other diseases of bronchus, not elsewhere classified | CPT/HCPCS: 99212 ==

== ENCOUNTER → 2021-10-07 10:19 | Outpatient (BNVA) | payer MEDICARE, MEDICAID, SELFPAY | PROVIDERS: PCP Internal Medicine Geriatric Medicine; Visit Provider Nurse Practitioner Family | DX: M96.1 Postlaminectomy syndrome, not elsewhere classified (principal); M62.830 Muscle spasm of back; M47.26 Other spondylosis with radiculopathy, lumbar region; M53.3 Sacrococcygeal disorders, not elsewhere classified | CPT/HCPCS: 99202 ==

== ENCOUNTER 2021-10-16 11:11 | Outpatient (REF) | payer MEDICARE, MEDICAID, SELFPAY ==
[2021-10-16 12:53] LABS: Thyroid Stimulating Hormone 0.27 uIU/mL (0.32-4.0)
[2021-10-18 17:11] LABS: Triiodothyronine T3 Total 133 ng/dL (76-181)
== END 2021-10-16 11:12 | disposition home or self-care (01) ==
LOC: HO.LAB 11:11
PROVIDERS: PCP Internal Medicine Geriatric Medicine; Visit Provider Internal Medicine
DX: E04.2 Nontoxic multinodular goiter (principal)
CPT/HCPCS: 36415; 84439; 84443; 84480

== ENCOUNTER 2021-11-01 19:47 | Inpatient (IN) | payer MEDICARE, MEDICAID, SELFPAY ==
--- NOTE | ~2021-11-01 | XR_ITS ---
EXAMINATION: XR CHEST CLINICAL INFORMATION: Shortness of breath COMPARISON: Chest x-ray 01/23/2021 TECHNIQUE: Frontal portable view of the chest was obtained. 9:53 PM FINDINGS: No significant abnormality is noted involving the heart, lungs, mediastinum, bony thorax or soft tissues. XR/XR chest 1V IMPRESSION: Unremarkable examination.
--- NOTE | ~2021-11-01 | US_ITS ---
EXAMINATION: US VENOUS ULTRASOUND WITH DOPPLER LOWER EXTREMITY, RIGHT CLINICAL INFORMATION: Right foot swelling COMPARISON: None TECHNIQUE: Ultrasound of the deep veins is performed from the hip to the calf with compression sonography and color and pulse Doppler assessment. Spectral analysis with color-flow imaging is performed. FINDINGS: There is normal venous compression and respiratory variation and augmented flow. The visualized common femoral vein, superficial femoral vein, profunda femoral vein, popliteal vein, and the trifurcation region shows no evidence of deep venous thrombosis. There is no significant popliteal fossa cyst. US/US venous duplex LE RT IMPRESSION: No DVT demonstrated in the right lower extremity.
[2021-11-01 19:50] VITALS: BP 150/74; PULSE 97; RESP 24; TEMP 36.7; O2SAT 88; BMI 26.6
[2021-11-01 20:08] VITALS: BP 146/76; PULSE 87; RESP 14; TEMP 37; O2SAT 94
--- NOTE | 2021-11-01 20:25 | ED.SOB ---
HPI - SOB/Dyspnea General Chief Complaint: Dyspnea Stated Complaint: DIfficulty breathing Time Seen by Provider: 11/01/21 20:13 Source: patient Mode of arrival: EMS History of Present Illness HPI Narrative: 60-year-old female with history of COPD and CAD presents with worsening shortness of breath over the past 2-3 days and then acutely worsened today after napping. Patient attempted breathing treatments at home but had no improvement and noted that her oxygenation was 88% and she is not home oxygen reliant. She denies any bilateral lower extremity swelling and denies any fever, chills, chest pain/palpitations, GI or symptoms. Related Data Home Medications Medication Instructions Recorded Confirmed aspirin 81 mg tablet,delayed 81 mg PO DAILY 12/24/19 04/10/21 release atorvastatin 80 mg tablet 80 mg PO BEDTIME 12/24/19 04/10/21 carvedilol 6.25 mg tablet 6.25 mg PO BID 12/24/19 04/10/21 cetirizine 10 mg tablet 10 mg PO DAILY 12/24/19 04/10/21 montelukast 10 mg tablet 10 mg PO BEDTIME 12/24/19 04/10/21 omeprazole 20 mg capsule,delayed 20 mg PO BID 12/24/19 04/10/21 release oxycodone-acetaminophen 7.5 mg-325 1 tab PO Q6H 12/24/19 04/10/21 mg tablet insulin aspart U-100 100 unit/mL See Rx Instructions subcut TID 01/02/20 04/10/21 (3 mL) subcutaneous pen (Novolog Flexpen U-100 Insulin aspart) insulin glargine 100 unit/mL (3 30 - 35 unit subcut BID 01/02/20 04/10/21 mL) subcutaneous pen (Lantus Solostar U-100 Insulin) ipratropium 20 mcg-albuterol 100 2 puff inhalation QID 01/02/20 04/10/21 mcg/actuation mist for inhalation (Combivent Respimat) lactulose 10 gram/15 mL oral 15 ml PO DAILY PRN constipation 01/02/20 04/10/21 solution docusate sodium 100 mg capsule 1 cap PO BEDTIME 01/24/21 04/10/21 furosemide 20 mg tablet 1 tab PO DAILY PRN Edema 01/24/21 04/10/21 lidocaine 5 % topical cream 1 appl topical BID 10/28/21 01/12/22 sennosides 8.6 mg tablet (senna) 1 tab PO DAILY 01/24/21 04/10/21 fluticasone propionate 50 2 spray intranasal DAILY 02/19/21 04/10/21 mcg/actuation nasal spray,suspension dulaglutide 0.75 mg/0.5 mL mg subcut QWEEK 08/20/21 subcutaneous pen injector (Trulicity) blood sugar diagnostic (FreeStyle #10 ea 10/07/21 Lite Strips) gabapentin 300 mg capsule 300 mg PO TID 10/07/21 lancets 33 gauge (TRUEplus Lancets) #100 ea 10/07/21 naloxone 4 mg/actuation nasal spray 0 spray intranasal 10/07/21 Previous Rx's Medication Instructions Recorded ipratropium 0.5 mg-albuterol 3 mg 3 ml inhalation QID #180 mL 07/09/20 (2.5 mg base)/3 mL nebulization soln budesonide 0.5 mg/2 mL suspension 0.5 mg (2 mL) inhalation DAILY #60 12/18/20 for nebulization mL nicotine 21 mg/24 hr daily 1 patch transdermal DAILY #28 ea 02/01/21 transdermal patch cholecalciferol (vitamin D3) 50 50 mcg PO DAILY 90 days #90 caps 04/17/21 mcg (2,000 unit) capsule Ventolin HFA 90 mcg/actuation 2 puff PO Q4-6H PRN for wheezing 04/29/21 aerosol inhaler (albuterol sulfate) #1 ea roflumilast 500 mcg tablet 500 mcg PO DAILY #30 tabs 08/01/21 (Daliresp) doxycycline hyclate 100 mg capsule 100 mg PO BID 10 days #20 caps 08/20/21 prednisone 20 mg tablet See Rx Instructions PO DAILY 10 08/20/21 days #15 tabs methocarbamol 750 mg tablet 750 mg PO Q8H muscle spasms 30 10/10/21 days #90 tabs Trelegy Ellipta 100 mcg-62.5 1 ea PO DAILY #60 ea 10/29/21 mcg-25 mcg powder for inhalation (ykxoyzlzzdx-vmzogfltq-mkbxiauy) prednisone 5 mg tablet 5 mg PO DAILY #30 tabs 10/29/21 Allergies Allergy/AdvReac Type Severity Reaction Status Date / Time HANK Inhibitors Allergy Severe ANGIO Verified 11/01/21 19:49 [HANK INHIBITORS] EDEMA enalapril Allergy Severe Anaphylaxis Verified 11/01/21 19:49 erythromycin base Allergy Severe HIVES ALL Verified 11/01/21 19:49 [ERYTHROMYCIN BASE] OVER hydromorphone [From DILAUDID] AdvReac Severe TINGLING, Verified 11/01/21 19:49 PT DOES NOT LIKE THE FEELING MED GIVES HER Review of Systems Review of Systems: Pertinent positives and negatives as stated in HPI 10 point review of systems is otherwise negative. [facility] Past Medical History Source: nursing notes reviewed Medical History Atelectasis COPD (chronic obstructive pulmonary disease) Goiter Lesion of bronchus Multinodular goiter Pneumonia Pulmonary nodules Subclinical hyperthyroidism Tracheal anomaly Vitamin D deficiency Surgical History History of back surgery History of cholecystectomy History of tonsillectomy History of ureterostomy S/P lumpectomy, right breast Family History Family History Father No problems noted. Mother No problems noted. Paternal Aunt Diabetes Social History Social History Household Members: Spouse Housing: House Do you presently have visiting nurse or other home services: No Alcohol intake: never Patient Tobacco Use Status: Current everyday Tobacco user Tobacco use type: Cigarette Smoked in Last 30 Days: Yes e-Cigarette/Vaping Use: Currently Using Second Hand Smoke Exposure: No Use of substances other than those prescribed or required for medical reasons: Yes Substance Use Type: Marijuana Substance Use Frequency: Occasionally Advance Directives: Yes Advance Directives on File: Yes Advance Directives Date on File: 01/24/21 Patient : No service: No Current occupational status: retired Physical Exam Vital Signs: Vital Signs: Last Vital Signs Temp 98.6 F 11/01/21 20:08 Pulse 98 11/01/21 20:45 Resp 18 11/01/21 20:45 BP 146/76 H 11/01/21 20:08 Pulse Ox 94 11/01/21 20:08 O2 Del Method 11/01/21 20:08 O2 Flow Rate 2 11/01/21 20:08 BMI result Body Mass Index 26.6 VITAL SIGNS: Reviewed. GENERAL: Well developed, well nourished, in no acute distress. HEAD: Normocephalic/atraumatic EYES: PERRLA, EOMI EARS: Ext canals without abnormality OROPHARYNX: no oral lesions noted, posterior pharynx clear LUNGS: Bibasilar decreased breath sounds with expiratory wheeze but no rhonchi. Tachypnea is present mildly increased work of breathing. SpO2<94> on 1 L via nasal cannula CARDIOVASCULAR: Regular rate and rhythm without noted murmurs, no JVD or lower extremity edema. ABDOMEN: Soft, non-tender, non-distended with bowel sounds. MUSCULOSKELETAL: No tenderness, deformities, or effusions noted on gross inspection. EXTREMITIES: No cyanosis, clubbing or edema. SKIN: Inspection of the skin reveals no rashes NEUROLOGIC: Alert and oriented x 4. Strength and sensation to light touch were grossly intact x 4. Course Course Course Narrative: 2028: 60-year-old female with history and clinical presentation and will be evaluated for COPD versus CHF. Review of all investigations patient is otherwise consistent with COPD exacerbation with persistent requirements for supplemental oxygen via nasal cannula. Patient has received steroids, albuterol, antibiotics. I discussed case with the inpatient hospitalist who accepts admission. MDM - SOB/Dyspnea Lab Data Result diagrams: 11/01/21 20:21 11/01/21 20:21 Labs: Lab Results 11/01/21 11/01/21 11/01/21 Range/Units 19:57 20:21 20:21 WBC 12.5 H (4.8-10.8) X10*3/uL RBC 5.50 (4.20-5.50) X10*6/uL Hgb 16.3 H (12.0-16.0) g/dl Hct 47.7 H (37.0-47.0) % MCV 86.7 (80.0-98.0) fL MCH 29.6 (27.0-33.0) pg MCHC 34.2 (31.0-35.0) g/dl RDW 12.8 (11.0-16.0) % Plt Count 293 (160-400) X10*3/uL MPV 10.2 (9.4-12.3) fL Immature Gran % (Auto) 0.5 H (0.0-0.4) % Neut % (Auto) 50.5 (45-73) % Lymph % (Auto) 34.5 (20-40) % [place] % (Auto) 7.7 (2-11) % Eos % (Auto) 5.8 H (0-4) % Baso % (Auto) 1.0 (0-2) % Lymph # (Auto) 4.3 (1.2-4.9) X10*3/uL [place] # (Auto) 1.0 (0.1-1.2) X10*3/uL Eos # (Auto) 0.7 H (0.0-0.4) X10*3/uL Baso # (Auto) 0.1 (0.0-0.2) X10*3/uL Abs Immat Gran (auto) 0.06 H (0.00-0.03) X10*3/uL Absolute Neuts (auto) 6.3 (2.0-8.3) x10*3/uL Absolute Nucleated RBC 0.000 (0.0-0.012) X10*3/uL Nucleated RBC % (auto) 0.0 (0.0-0.2) /100WBC VBG pH (7.32-7.43) VBG pCO2 mmHg VBG pO2 mmHg VBG HCO3 (22-26) mmol/L VBG O2 Saturation % VBG Base Excess mmol/L Sodium 144 (135-145) mmol/L Potassium 4.1 (3.3-5.1) mmol/L Chloride 108 (96-108) mmol/L Carbon Dioxide 25 (22-29) mmol/L Anion Gap 15 (12-20) BUN 14 (9-16) mg/dL Creatinine 0.81 (0.5-1.4) mg/dL Estim Creat Clear Calc 72.8 Estimated GFR > 60 Random Glucose 161 H (60-115) mg/dL Lactic Acid (0.5-2.0) mmol/L Calcium 9.0 (8.4-10.2) mg/dL B-Natriuretic Peptide (<100) pg/mL COVID-19 (TIMMY) Negative (Negative) COVID-19 Clin Com See Note 11/01/21 11/01/21 11/01/21 Range/Units 20:24 20:30 21:29 WBC (4.8-10.8) X10*3/uL RBC (4.20-5.50) X10*6/uL Hgb (12.0-16.0) g/dl Hct (37.0-47.0) % MCV (80.0-98.0) fL MCH (27.0-33.0) pg MCHC (31.0-35.0) g/dl RDW (11.0-16.0) % Plt Count (160-400) X10*3/uL MPV (9.4-12.3) fL Immature Gran % (Auto) (0.0-0.4) % Neut % (Auto) (45-73) % Lymph % (Auto) (20-40) % [place] % (Auto) (2-11) % Eos % (Auto) (0-4) % Baso % (Auto) (0-2) % Lymph # (Auto) (1.2-4.9) X10*3/uL [place] # (Auto) (0.1-1.2) X10*3/uL Eos # (Auto) (0.0-0.4) X10*3/uL Baso # (Auto) (0.0-0.2) X10*3/uL Abs Immat Gran (auto) (0.00-0.03) X10*3/uL Absolute Neuts (auto) (2.0-8.3) x10*3/uL Absolute Nucleated RBC (0.0-0.012) X10*3/uL Nucleated RBC % (auto) (0.0-0.2) /100WBC VBG pH 7.40 (7.32-7.43) VBG pCO2 39 mmHg VBG pO2 63 mmHg VBG HCO3 24 (22-26) mmol/L VBG O2 Saturation 89.0 % VBG Base Excess -0.1 mmol/L Sodium (135-145) mmol/L Potassium (3.3-5.1) mmol/L Chloride (96-108) mmol/L Carbon Dioxide (22-29) mmol/L Anion Gap (12-20) BUN (9-16) mg/dL Creatinine (0.5-1.4) mg/dL Estim Creat Clear Calc Estimated GFR Random Glucose (60-115) mg/dL Lactic Acid 1.2 (0.5-2.0) mmol/L Calcium (8.4-10.2) mg/dL B-Natriuretic Peptide 55 (<100) pg/mL COVID-19 (TIMMY) (Negative) COVID-19 Clin Com ECG Data Attestation: I personally reviewed and interpreted this ECG as follows: Prior ECG tracings: available for review Interpretation: Sinus, HR 6, incomplete right bundle-branch block, STEMI, CO/QRS/QTC is within normal limits. Discharge Plan Discharge Clinical Impression: COPD exacerbation, Hypoxia Patient Disposition: Admitted As Inpatient Prescriptions: No Action ipratropium-albuterol 0.5 mg-3 mg(2.5 mg base)/3 mL solution for nebulization 3 ml inhalation QID Qty: 180 0RF budesonide 0.5 mg/2 mL suspension for nebulization 0.5 mg inhalation DAILY Qty: 60 11RF cholecalciferol (vitamin D3) 50 mcg (2,000 unit) capsule 50 mcg PO DAILY 90 Days Qty: 90 11RF albuterol sulfate [Ventolin HFA] 90 mcg/actuation HFA aerosol inhaler 2 puff PO Q4-6H PRN (Reason: for wheezing) Qty: 1 11RF Daliresp 500 mcg tablet 500 mcg PO DAILY Qty: 30 11RF methocarbamol 750 mg tablet 750 mg PO Q8H 30 Days Qty: 90 0RF Trelegy Ellipta 100-62.5-25 mcg blister with device 1 ea PO DAILY Qty: 60 3RF prednisone 5 mg tablet 5 mg PO DAILY Qty: 30 3RF lidocaine 5 % cream 1 appl topical BID sennosides [senna] 8.6 mg tablet 1 tab PO DAILY docusate sodium 100 mg capsule 1 cap PO BEDTIME furosemide 20 mg tablet 1 tab PO DAILY PRN (Reason: Edema) insulin aspart U-100 [Novolog Flexpen U-100 Insulin] 100 unit/mL (3 mL) insulin pen See Rx Instructions subcut TID Rx Instructions: 4-10 units as directed subcut 3 times a day; Lantus Solostar U-100 Insulin 100 unit/mL (3 mL) insulin pen 30 - 35 unit subcut BID Rx Instructions: TAKES 30 UNITS WHEN SHE ISNT ON STEROIDS, AND 35 WHEN ON STERIODS lactulose 10 gram/15 mL solution 15 ml PO DAILY PRN (Reason: constipation) Combivent Respimat 20-100 mcg/actuation mist 2 puff inhalation QID Rx Instructions: space evenly during waking hours oxycodone-acetaminophen 7.5-325 mg tablet 1 tab PO Q6H omeprazole 20 mg capsule,delayed release(DR/EC) 20 mg PO BID aspirin 81 mg tablet,delayed release (DR/EC) 81 mg PO DAILY carvedilol 6.25 mg tablet 6.25 mg PO BID atorvastatin 80 mg tablet 80 mg PO BEDTIME montelukast 10 mg tablet 10 mg PO BEDTIME cetirizine 10 mg tablet 10 mg PO DAILY nicotine 21 mg/24 hr patch 24 hour 1 patch transdermal DAILY Qty: 28 11RF fluticasone propionate 50 mcg/actuation spray,suspension 2 spray intranasal DAILY (DME) lancets [TRUEplus Lancets] 33 gauge misc See Rx Instructions .ROUTE TID Qty: 100 Rx Instructions: As directed (DME) FreeStyle Lite Strips Strip See Rx Instructions .ROUTE TID Qty: 10 Rx Instructions: As directed naloxone 4 mg/actuation spray,non-aerosol 0 spray intranasal gabapentin 300 mg capsule 300 mg PO TID Trulicity 0.75 mg/0.5 mL pen injector subcut QWEEK prednisone 20 mg tablet See Rx Instructions PO DAILY 10 Days Qty: 15 1RF Rx Instructions: PO daily; Take 2 tabs daily x 5 days, then 1 tablet daily x 5 days doxycycline hyclate 100 mg capsule 100 mg PO BID 10 Days Qty: 20 0RF
[2021-11-01 20:26] LABS: COVID-19 Test Negative (Negative); IDNOW Serial# 16C4AD1C
--- NOTE | 2021-11-01 20:26 | ECG_ITS ---
Test Reason : SOB Blood Pressure : / mmHG Vent. Rate : 086 BPM Atrial Rate : 086 BPM P-R Int : 136 ms QRS Dur : 092 ms QT Int : 362 ms P-R-T Axes : 065 001 038 degrees QTc Int : 433 ms Normal sinus rhythm Incomplete right bundle branch block Borderline ECG When compared with ECG of 24-JAN-2021 06:06, No significant change was found Referred By: Kely June Electronically Signed By:DAVI KEEN MD
--- NOTE | 2021-11-01 20:34 | PC.NURSE ---
Pt. on monitor tech, respiratory at bedside giving breathing treatment, labs and first set of blood cultures drawn, IV access placed
[2021-11-01 20:38] LABS: MANUAL DIFF FLAG NO
[2021-11-01] MEDS: methylPREDNISolone Sod Succ 125 MG/2 ML VIAL IVPUSH (20:38)
[2021-11-01 20:41] LABS: Basophils Absolute Auto 0.1 X10*3/uL (0.0-0.2); Eosinophils Absolute Auto 0.7 X10*3/uL (0.0-0.4); Eosinophils Percent Auto 5.8 % (0-4); Hematocrit 47.7 % (37.0-47.0); Hemoglobin 16.3 g/dl (12.0-16.0); Imm Gran Abs Auto 0.06 X10*3/uL (0.00-0.03); Imm Gran Pct Auto 0.5 % (0.0-0.4); Lymphocytes Absolute Auto 4.3 X10*3/uL (1.2-4.9); Lymphocytes Percent Auto 34.5 % (20-40); Mean Corpuscular HGB Conc 34.2 g/dl (31.0-35.0); Mean Corpuscular Hemoglobin 29.6 pg (27.0-33.0); Mean Corpuscular Volume 86.7 fL (80.0-98.0); Mean Platelet Volume 10.2 fL (9.4-12.3); Monocytes Percent Auto 7.7 % (2-11); Neutrophils Absolute Auto 6.3 x10*3/uL (2.0-8.3); Neutrophils Percent Auto 50.5 % (45-73); Platelet Count 293 X10*3/uL (160-400); Red Cell Distribution Width 12.8 % (11.0-16.0); White Blood Count 12.5 X10*3/uL (4.8-10.8)
[2021-11-01] MEDS: Albuterol Sulfate (0.083%) 2.5 MG/3 ML VIAL.NEB 10 MG INHALE ×2 (20:42→23:57)
[2021-11-01 20:45] VITALS: PULSE 98; RESP 18; O2SAT 88
[2021-11-01 20:54] LABS: Lactic Acid 1.2 mmol/L (0.5-2.0)
[2021-11-01 20:57] LABS: Anion Gap 15 (12-20); Blood Urea Nitrogen 14 mg/dL (9-16); Carbon Dioxide 25 mmol/L (22-29); Chloride 108 mmol/L (96-108); Creatinine Clr Calc Pharmacy 72.8; Estimated Glomerular Filt Rate > 60; Glucose Random 161 mg/dL (60-115); Potassium 4.1 mmol/L (3.3-5.1); Sodium 144 mmol/L (135-145)
[2021-11-01 21:10] LABS: B Type Natriuretic Peptide 55 pg/mL (<100)
[2021-11-01 21:32] LABS: Venous Blood Gas Refer to POC result
[2021-11-01 21:34] LABS: VBG Base Excess -0.1 mmol/L; VBG HCO3 24 mmol/L (22-26); VBG pCO2 39 mmHg; VBG pO2 63 mmHg
--- NOTE | 2021-11-01 23:28 | P.HPHOSP_ITS ---
History of Present Illness Date of Service: 11/01/21 Chief Complaint: SOB 60-year-old female with a past medical history of hypertension, hyperlipidemia, diabetes, CHF EF- 45%, CAD s/p PCI in 2018, COPD -recurrent COPD exacerbation, not on home oxygen, on chronic prednisone,; GERD, radiculopathy, multinodular goiter, MCKAY, pulmonary nodules; presented to the hospital today with a chief complaint of shortness of breath. Patient reports that over the past couple days she has been having cough and shortness of breath. Occasional mild sputum production. Denies any fevers. Reports he is still smoking. Denies being on home oxygen. Denies any chest pain or palpitations. Denies any nausea vomiting or diarrhea. Review of all other systems is negative except mentioned above ER course: Per ER team patient noted to have bilateral expiratory wheezing concern for COPD exacerbation. Given nebulizations and steroids. Admitted to the hospital for further management. [facility] Medical History (Updated 11/02/21 @ 02:48 by Ramos Sykes MD) Atelectasis COPD (chronic obstructive pulmonary disease) Goiter Lesion of bronchus Multinodular goiter Pneumonia Pulmonary nodules Subclinical hyperthyroidism Tracheal anomaly Vitamin D deficiency Family History Father No problems noted. Mother No problems noted. Paternal Aunt Diabetes Surgical History History of back surgery History of cholecystectomy History of tonsillectomy History of ureterostomy S/P lumpectomy, right breast Social History Household Members: Spouse Housing: House Do you presently have visiting nurse or other home services: No Alcohol intake: never Patient Tobacco Use Status: Current everyday Tobacco user Tobacco use type: Cigarette Smoked in Last 30 Days: Yes e-Cigarette/Vaping Use: Currently Using Second Hand Smoke Exposure: No Use of substances other than those prescribed or required for medical reasons: Yes Substance Use Type: Marijuana Substance Use Frequency: Occasionally Advance Directives: Yes Advance Directives on File: Yes Advance Directives Date on File: 01/24/21 Patient : No service: No Current occupational status: retired Meds Allergies Allergy/AdvReac Type Severity Reaction Status Date / Time HANK Inhibitors Allergy Severe ANGIO Verified 11/01/21 19:49 [HANK INHIBITORS] EDEMA enalapril Allergy Severe Anaphylaxis Verified 11/01/21 19:49 erythromycin base Allergy Severe HIVES ALL Verified 11/01/21 19:49 [ERYTHROMYCIN BASE] OVER hydromorphone [From DILAUDID] AdvReac Severe TINGLING, Verified 11/01/21 19:49 PT DOES NOT LIKE THE FEELING MED GIVES HER Active Medications: Current Medications Acetaminophen (Acetaminophen 325 Mg Tablet) 650 mg PO Q6H PRN PRN Reason: Pain, Mild (Pain Scale 1-3) Albuterol/Ipratropium (Albuterol/Iprat 2.5/0.5mg 3 Ml Ampul.Neb) 3 ml INHALE RQ4H WHILE AWAKE SOM Azithromycin (Azithromycin 500 Mg Tablet) 500 mg PO Q24H SOM Enoxaparin Sodium (Enoxaparin Sodium 40 Mg/0.4 Ml Syringe) 40 mg SUBCUT Q24H SOM Melatonin (Melatonin 3 Mg Tablet) 6 mg PO BEDTIME PRN PRN Reason: Insomnia Senna (Sennosides 8.6 Mg Tablet) 17.2 mg PO BEDTIME PRN PRN Reason: Constipation Sodium Chloride (0.9 % Sodium Chloride Flush 3 Ml Syringe) 3 ml IVFLUSH QSHIFT [facility] Home Medications Medication Instructions Recorded Confirmed Last Taken Type aspirin 81 mg tablet,delayed 81 mg PO DAILY 12/24/19 04/10/21 01/23/21 09:30 History release atorvastatin 80 mg tablet 80 mg PO BEDTIME 12/24/19 04/10/21 01/23/21 09:30 History carvedilol 6.25 mg tablet 6.25 mg PO BID 12/24/19 04/10/21 01/23/21 09:30 History cetirizine 10 mg tablet 10 mg PO DAILY 12/24/19 04/10/21 01/23/21 09:30 History montelukast 10 mg tablet 10 mg PO BEDTIME 12/24/19 04/10/21 01/23/21 09:30 History omeprazole 20 mg capsule,delayed 20 mg PO BID 12/24/19 04/10/21 01/23/21 09:30 History release oxycodone-acetaminophen 7.5 mg-325 1 tab PO Q6H 12/24/19 04/10/21 01/23/21 09:30 History mg tablet insulin aspart U-100 100 unit/mL See Rx Instructions subcut TID 01/02/20 04/10/21 01/23/21 09:30 History (3 mL) subcutaneous pen (Novolog Flexpen U-100 Insulin aspart) insulin glargine 100 unit/mL (3 30 - 35 unit subcut BID 01/02/20 04/10/21 01/23/21 09:30 History mL) subcutaneous pen (Lantus Solostar U-100 Insulin) ipratropium 20 mcg-albuterol 100 2 puff inhalation QID 01/02/20 04/10/21 01/23/21 09:30 History mcg/actuation mist for inhalation (Combivent Respimat) lactulose 10 gram/15 mL oral 15 ml PO DAILY PRN constipation 01/02/20 04/10/21 01/23/21 09:30 History solution docusate sodium 100 mg capsule 1 cap PO BEDTIME 01/24/21 04/10/21 Unknown History furosemide 20 mg tablet 1 tab PO DAILY PRN Edema 01/24/21 04/10/21 Unknown History lidocaine 5 % topical cream 1 appl topical BID 01/24/21 04/10/21 Unknown History sennosides 8.6 mg tablet (senna) 1 tab PO DAILY 01/24/21 04/10/21 Unknown History fluticasone propionate 50 2 spray intranasal DAILY 02/19/21 04/10/21 Unknown History mcg/actuation nasal spray,suspension dulaglutide 0.75 mg/0.5 mL mg subcut QWEEK 08/20/21 Unknown History subcutaneous pen injector ([facility]) blood sugar diagnostic (FreeStyle #10 ea 10/07/21 Unknown History Lite Strips) gabapentin 300 mg capsule 300 mg PO TID 10/07/21 Unknown History lancets 33 gauge (TRUEplus Lancets) #100 ea 10/07/21 Unknown History naloxone 4 mg/actuation nasal spray 0 spray intranasal 10/07/21 Unknown History Physical Exam Vital Signs and Narrative: Vital Signs: Last Vital Signs Temp 98.6 F 11/01/21 20:08 Pulse 98 11/01/21 20:45 Resp 18 11/01/21 20:45 BP 146/76 H 11/01/21 20:08 Pulse Ox 94 11/01/21 20:08 O2 Del Method 11/01/21 20:08 O2 Flow Rate 2 11/01/21 20:08 BMI result Body Mass Index 26.6 Gen: Appears be in no acute distress. Speaks in full sentences HEENT: NCAT, Moist mucosa. Pulmonary: bilateral expiratory wheezing noted CVS: Normal S1-S2 Abdomen: BS+, Soft, Nontender Extremities: Warm well perfused Neuro: Alert and awake. Results Labs CBC and Chem 7: 11/01/21 20:21 11/01/21 20:21 Labs: Laboratory Results - last 24 hr 11/01/21 11/01/21 11/01/21 19:57 20:21 20:21 MCV 86.7 MCH 29.6 MCHC 34.2 RDW 12.8 Plt Count 293 MPV 10.2 Immature Gran % (Auto) 0.5 H Neut % (Auto) 50.5 Lymph % (Auto) 34.5 [place] % (Auto) 7.7 Eos % (Auto) 5.8 H Baso % (Auto) 1.0 Lymph # (Auto) 4.3 [place] # (Auto) 1.0 Eos # (Auto) 0.7 H Baso # (Auto) 0.1 Abs Immat Gran (auto) 0.06 H Absolute Neuts (auto) 6.3 Absolute Nucleated RBC 0.000 Nucleated RBC % (auto) 0.0 VBG pH VBG pCO2 VBG pO2 VBG HCO3 VBG O2 Saturation VBG Base Excess Anion Gap 15 Estim Creat Clear Calc 72.8 Estimated GFR > 60 Random Glucose 161 H Lactic Acid Calcium 9.0 B-Natriuretic Peptide COVID-19 (TIMMY) Negative COVID-19 Clin Com See Note 11/01/21 11/01/21 11/01/21 20:24 20:30 21:29 MCV MCH MCHC RDW Plt Count MPV Immature Gran % (Auto) Neut % (Auto) Lymph % (Auto) [place] % (Auto) Eos % (Auto) Baso % (Auto) Lymph # (Auto) [place] # (Auto) Eos # (Auto) Baso # (Auto) Abs Immat Gran (auto) Absolute Neuts (auto) Absolute Nucleated RBC Nucleated RBC % (auto) VBG pH 7.40 VBG pCO2 39 VBG pO2 63 VBG HCO3 24 VBG O2 Saturation 89.0 VBG Base Excess -0.1 Anion Gap Estim Creat Clear Calc Estimated GFR Random Glucose Lactic Acid 1.2 Calcium B-Natriuretic Peptide 55 COVID-19 (TIMMY) COVID-19 Clin Com Imaging Radiologist's Impressions: Impressions Chest X-Ray 11/01/21 22:05 IMPRESSION: Unremarkable examination. Assessment and Plan (1) COPD exacerbation: Status: Acute Plan 60-year-old female with a past medical history of hypertension, hyperlipidemia, diabetes, CHF EF- 45%, CAD s/p PCI in 2018, COPD -recurrent COPD exacerbation, not on home oxygen, on chronic prednisone,; GERD, radiculopathy, multinodular goiter, MCKAY, pulmonary nodules; presented to the hospital today with a chief complaint of shortness of breath. noted to be a good COPD exacerbation. Admitted for further management. Acute COPD exacerbation: Will give the patient on nebulizations standing and p.r.n. Solu-Medrol IV Doxycycline Supplemental oxygen p.r.n. Patient on Trelegy Ellipta,roflulimast, montelukast,, prednisone 5 mg, DuoNebs at home History of chronic back pain: Continue home methocarbamol. Oxycodone p.r.n. History diabetes: Lantus 20 units plus insulin sliding scale. Hold home regimen History of HTN/HLD/CAD: Continue home aspirin, statin, Carvedilol History of CHF: EF of 45% on echo 09/2020 at [facility]. Continue home Lasix. History of neuropathy: Continue home gabapentin DVT prophylaxis: Lovenox Code status: Full code Quality Stroke Does the patient have a stroke diagnosis?: No VTE Prior VTE?: No VTE Risk Level:: Medical - moderate - high VTE Device Contraindication: Treatment Not Indicated VTE Drug Contraindication: N/A - Med Ordered
[2021-11-01] MEDS: levoFLOXacin 750 MG TABLET PO (23:38)
[2021-11-01 23:41] VITALS: BP 132/75; PULSE 96; RESP 20; O2SAT 92
--- NOTE | 2021-11-01 23:55 | PC.NURSE ---
Messaged Yuliana Sykes MD re: pt.'s order for Azithromycin. Pt. has allergy to Erythromyic which causes her to break out in hives all over her body. is aware and is changing antibiotic order now.
[2021-11-01 23:58] VITALS: PULSE 92; RESP 20; O2SAT 91
--- NOTE | 2021-11-01 23:58 | PC.NURSE ---
Azithromycin PO changed to Doxycycline PO d/t pt.'s allergy
[2021-11-02] VITALS (10 sets, daily range): BP systolic 122–168; BP diastolic 70–86; PULSE 86–113; RESP 16–20; TEMP 36.1–36.9; O2SAT 93–97
[2021-11-02] MEDS: methylPREDNISolone Sod Succ 40 MG/ML VIAL IVPUSH ×4 (01:36→21:23)
[2021-11-02] MEDS: Enoxaparin Sodium 40 MG/0.4 ML SYRINGE SUBCUT ×2 (01:38→21:22)
[2021-11-02 02:26] LABS: Glucose, Whole Blood 370 mg/dL (60-115)
[2021-11-02] MEDS: oxyCODONE HCl Immed Release 5 MG TABLET 10 MG PO (04:58)
--- NOTE | 2021-11-02 05:06 | PC.NURSE ---
Pt. noted to be crying intermittently throughout night. This RN and tech. Morrissey in there soothing pt. many times. Pt. extremely upset about the fact that she has been in ED without a bed placement for almost 12 hours and feels that it is unacceptable, stating that staff are hanging up on her call lights without asking her what she needs, very upset that made a comment to her about video games, states that she has not eaten since morning of 11/01, repeatedly states if it wasn't for Maria Isabel, no one would even care that I was here and no one would have even looked in my room. Pt. also making statement, I know that a code just went on next door, but it's been so long since someone has checked on me, what if I coded next and no one noticed for hours? Pt. requesting pt. advocate number. Advocate number provided. Pt. consoled and support provided, will continue to provide emotional support as needed.
--- NOTE | 2021-11-02 05:58 | PC.NURSE ---
This RN overheard pt. hyperventilating, stating fucking shankar, this place needs to be shut down. This RN spoke with Lyndsey, water tender and Lyndsey in to speak with pt. to deescalate concerns
[2021-11-02 06:10] LABS: Glucose, Whole Blood 350 mg/dL (60-115)
--- NOTE | 2021-11-02 06:32 | PC.NURSE ---
pt is upset about not having her room and medication, Dr. Sykes aware of concerns. Pt will be assigned a bed this morning.
[2021-11-02] MEDS: Insulin Lispro 100 UNIT/ML 3 ML VIAL SUBCUT ×4 (06:49→21:10)
[2021-11-02 07:09] LABS: MANUAL DIFF FLAG NO
[2021-11-02 07:13] LABS: Basophils Percent Auto 0.4 % (0-2); Hematocrit 48.4 % (37.0-47.0); Hemoglobin 16.3 g/dl (12.0-16.0); Imm Gran Abs Auto 0.11 X10*3/uL (0.00-0.03); Lymphocytes Absolute Auto 0.9 X10*3/uL (1.2-4.9); Lymphocytes Percent Auto 8.3 % (20-40); Mean Corpuscular HGB Conc 33.7 g/dl (31.0-35.0); Mean Corpuscular Hemoglobin 29.2 pg (27.0-33.0); Mean Corpuscular Volume 86.7 fL (80.0-98.0); Mean Platelet Volume 10.1 fL (9.4-12.3); Monocytes Absolute Auto 0.1 X10*3/uL (0.1-1.2); Monocytes Percent Auto 0.8 % (2-11); Neutrophils Absolute Auto 9.5 x10*3/uL (2.0-8.3); Neutrophils Percent Auto 89.5 % (45-73); Platelet Count 278 X10*3/uL (160-400); Red Blood Count 5.58 X10*6/uL (4.20-5.50); Red Cell Distribution Width 12.6 % (11.0-16.0); White Blood Count 10.6 X10*3/uL (4.8-10.8)
[2021-11-02 07:22] LABS: Glucose, Whole Blood 324 mg/dL (60-115)
[2021-11-02 07:43] LABS: Anion Gap 24 (12-20); Blood Urea Nitrogen 16 mg/dL (9-16); Calcium 9.6 mg/dL (8.4-10.2); Carbon Dioxide 18 mmol/L (22-29); Chloride 106 mmol/L (96-108); Creatinine Clr Calc Pharmacy 60.1; Estimated Glomerular Filt Rate 58; Glucose Random 365 mg/dL (60-115); Potassium 4.1 mmol/L (3.3-5.1); Sodium 144 mmol/L (135-145)
[2021-11-02] MEDS: Albuterol/Iprat 2.5/0.5MG 3 ML AMPUL.NEB INHALE ×4 (07:53→18:43)
--- NOTE | 2021-11-02 08:07 | PC.NURSE ---
Pt alert and oriented. Bilateral wheezes. Tearful and agitated. Reports will make complain to the board if mediations not being provided. Pt reports back pain with muscle spasms 10/10 and is requesting Percocet 7.5mg and Robaxin 750mg. Pt refused Tylenol. Reports solumedrol was administered this morning along with the insulin by shift production associate nurse. RN to RN report given to Sanjuana. Pt aware of plan of care for transfer to [facility].
[2021-11-02 09:02] LABS: Glucose, Whole Blood 358 mg/dL (60-115)
--- NOTE | 2021-11-02 09:47 | PHA.MEDREC ---
MED REC COMPLETE, NO ISSUES Pharmacy Consult ? Medication Reconciliation Pharmacy has completed the medication reconciliation.
[2021-11-02] MEDS: 0.9 % Sodium Chloride 1,000 ML 100 ML IVCONT (10:33)
--- NOTE | 2021-11-02 10:37 | MHC.CM.PN ---
met with pt who lives with her pt is independent had no previous servcies dc plan home no serveis pt is vax x 4
[2021-11-02] MEDS: carvediloL 6.25 MG TABLET PO ×2 (10:41→21:22)
[2021-11-02] MEDS: 0.9 % Sodium Chloride Flush 3 ML SYRINGE IVFLUSH (10:41)
[2021-11-02] MEDS: Insulin Glargine,Hum.rec.anlog 100 UNIT/ML 10 ML VIAL 30 UNIT SUBCUT ×2 (10:42→21:22)
[2021-11-02] MEDS: oxyCODONE HCl Immed Release 5 MG TABLET 7.5 MG PO ×2 (10:48→19:28)
[2021-11-02 11:40] LABS: Glucose, Whole Blood 339 mg/dL (60-115)
--- NOTE | 2021-11-02 12:23 | HO.PM.IMPN ---
Subjective Subjective Date of Service: 11/02/21 Interval History: Complaining of back pain, and leg spasm, requesting for home meds including muscle relaxers and narcotics, feels shortness of breath is better, denies fever chills no chest pain, no nausea no vomiting no other acute issues since admission. Review of Systems [employer] no headache no dizziness CVS no chest pain, no palpitation no urinary urgency, no frequency Review of Systems: Yes all other systems are reviewed and are negative Physical Exam Vital Signs: Vital Signs: Last Vital Signs Temp 98.4 F 11/02/21 11:33 Pulse 108 H 11/02/21 11:33 Resp 18 11/02/21 11:33 BP 159/86 H 11/02/21 11:33 Pulse Ox 95 11/02/21 11:33 O2 Del Method 11/02/21 11:33 O2 Flow Rate 2 11/02/21 11:33 BMI result Body Mass Index 26.6 Const: Other: General awake/alert x3, in no acute distress. Neck no JVD. CVS regular rate rhythm, Respiratory lungs no respiratory distress, expiratory wheeze, no rhonchi. No use of accessory muscles Gastrointestinal abdomen soft, nontender, bowel sounds audible, no guarding , no rigidity. Extremities no edema. Neuro nonfocal , speech clear. Skin no rash Objective Data Active Medications Acetaminophen (Acetaminophen 325 Mg Tablet) 650 mg PO Q6H PRN PRN Reason: Pain, Mild (Pain Scale 1-3) Albuterol/Ipratropium (Albuterol/Iprat 2.5/0.5mg 3 Ml Ampul.Neb) 3 ml INHALE RQ4H WHILE AWAKE [facility] Last Admin: 11/02/21 11:39 Dose: 3 ml Documented By: DIOR Albuterol/Ipratropium (Albuterol/Iprat 2.5/0.5mg 3 Ml Ampul.Neb) 3 ml INHALE RQ4H PRN PRN Reason: Shortness of Breath/Wheezing Atorvastatin Calcium (Atorvastatin Calcium 80 Mg Tablet) 80 mg PO BEDTIME [facility] Carvedilol (Carvedilol 6.25 Mg Tablet) 6.25 mg PO BID [facility]; Protocol Last Admin: 11/02/21 10:41 Dose: 6.25 mg Documented By: RADHA Dextrose (Dextrose 50 % 25 Gm/50 Ml Syringe) 25 gm IVPUSH Q15M PRN; Protocol PRN Reason: per Hypoglycemia Standing Ord. Doxycycline Hyclate (Doxycycline Hyclate 100 Mg Tablet) 100 mg PO Q12H [facility] Enoxaparin Sodium (Enoxaparin Sodium 40 Mg/0.4 Ml Syringe) 40 mg SUBCUT BEDTIME [facility] Last Admin: 11/02/21 01:38 Dose: 40 mg Documented By: PUSHPA Gabapentin (Gabapentin 300 Mg Capsule) 300 mg PO TID [facility] Glucose (Glucose Gel 15 Gm Gel..Gram.) 15 gm PO Q15M PRN; Protocol PRN Reason: per Hypoglycemia Standing Ord. Sodium Chloride (Ns) 1,000 mls @ 100 mls/hr IVCONT .Q10H [facility] Stop: 11/02/21 19:14 Last Admin: 11/02/21 10:33 Dose: 100 mls/hr Documented By: RADHA Insulin Glargine (Insulin Glargine,Hum.Rec.Anlog 100 Unit/Ml 10 Ml Vial) 30 unit SUBCUT BID [facility] Last Admin: 11/02/21 10:42 Dose: 30 unit Documented By: RADHA Insulin Human Lispro (Insulin Lispro 100 Unit/Ml 3 Ml Vial) 0 unit SUBCUT QIDACHS [facility]; Protocol Last Admin: 11/02/21 06:49 Dose: 8 unit Documented By: PERI Melatonin (Melatonin 3 Mg Tablet) 6 mg PO BEDTIME PRN PRN Reason: Insomnia Methylprednisolone Sodium Succinate (Methylprednisolone Sod Succ 40 Mg/Ml Vial) 40 mg IVPUSH Q12H [facility] Last Admin: 11/02/21 10:41 Dose: 40 mg Documented By: RADHA Non-Formulary Medication (Methocarbamol) 750 mg PO Q8H [facility] Non-Formulary Medication (Roflumilast [Daliresp]) 500 mcg PO DAILY [facility] Oxycodone HCl (Oxycodone Hcl Immed Release 5 Mg Tablet) 7.5 mg PO Q6H PRN PRN Reason: Pain, Severe (Pain Scale 7-10) Last Admin: 11/02/21 10:48 Dose: 7.5 mg Documented By: RADHA Senna (Sennosides 8.6 Mg Tablet) 17.2 mg PO BEDTIME PRN PRN Reason: Constipation Sodium Chloride (0.9 % Sodium Chloride Flush 3 Ml Syringe) 3 ml IVFLUSH QSHIFT [facility] Last Admin: 11/02/21 10:41 Dose: 3 ml Documented By: RADHA Labs CBC & Chem 7: 11/02/21 06:45 11/02/21 06:45 Labs: Laboratory Results - last 24 hr 11/01/21 11/01/21 11/01/21 19:57 20:21 20:21 MCV 86.7 MCH 29.6 MCHC 34.2 RDW 12.8 Plt Count 293 MPV 10.2 Immature Gran % (Auto) 0.5 H Neut % (Auto) 50.5 Lymph % (Auto) 34.5 [place] % (Auto) 7.7 Eos % (Auto) 5.8 H Baso % (Auto) 1.0 Lymph # (Auto) 4.3 [place] # (Auto) 1.0 Eos # (Auto) 0.7 H Baso # (Auto) 0.1 Abs Immat Gran (auto) 0.06 H Absolute Neuts (auto) 6.3 Absolute Nucleated RBC 0.000 Nucleated RBC % (auto) 0.0 VBG pH VBG pCO2 VBG pO2 VBG HCO3 VBG O2 Saturation VBG Base Excess Anion Gap 15 Estim Creat Clear Calc 72.8 Estimated GFR > 60 POC Glucose Random Glucose 161 H Lactic Acid Calcium 9.0 B-Natriuretic Peptide COVID-19 (TIMMY) Negative COVID-19 Clin Com See Note 11/01/21 11/01/21 11/01/21 20:24 20:30 21:29 MCV MCH MCHC RDW Plt Count MPV Immature Gran % (Auto) Neut % (Auto) Lymph % (Auto) [place] % (Auto) Eos % (Auto) Baso % (Auto) Lymph # (Auto) [place] # (Auto) Eos # (Auto) Baso # (Auto) Abs Immat Gran (auto) Absolute Neuts (auto) Absolute Nucleated RBC Nucleated RBC % (auto) VBG pH 7.40 VBG pCO2 39 VBG pO2 63 VBG HCO3 24 VBG O2 Saturation 89.0 VBG Base Excess -0.1 Anion Gap Estim Creat Clear Calc Estimated GFR POC Glucose Random Glucose Lactic Acid 1.2 Calcium B-Natriuretic Peptide 55 COVID-19 (TIMMY) COVID-19 Clin Com 0811/02/21 11/02/21 02:21 05:59 06:45 MCV 86.7 MCH 29.2 MCHC 33.7 RDW 12.6 Plt Count 278 MPV 10.1 Immature Gran % (Auto) 1.0 H Neut % (Auto) 89.5 H Lymph % (Auto) 8.3 L [place] % (Auto) 0.8 L Eos % (Auto) 0.0 Baso % (Auto) 0.4 Lymph # (Auto) 0.9 L [place] # (Auto) 0.1 Eos # (Auto) 0.0 Baso # (Auto) 0.0 Abs Immat Gran (auto) 0.11 H Absolute Neuts (auto) 9.5 H Absolute Nucleated RBC 0.000 Nucleated RBC % (auto) 0.0 VBG pH VBG pCO2 VBG pO2 VBG HCO3 VBG O2 Saturation VBG Base Excess Anion Gap Estim Creat Clear Calc Estimated GFR POC Glucose 370 H* 350 H* Random Glucose Lactic Acid Calcium B-Natriuretic Peptide COVID-19 (TIMMY) [id number] [employer] 11/02/21 11/02/21 11/02/21 06:45 07:19 08:55 MCV MCH MCHC RDW Plt Count MPV Immature Gran % (Auto) Neut % (Auto) Lymph % (Auto) [place] % (Auto) Eos % (Auto) Baso % (Auto) Lymph # (Auto) [place] # (Auto) Eos # (Auto) Baso # (Auto) Abs Immat Gran (auto) Absolute Neuts (auto) Absolute Nucleated RBC Nucleated RBC % (auto) VBG pH VBG pCO2 VBG pO2 VBG HCO3 VBG O2 Saturation VBG Base Excess Anion Gap 24 H Estim Creat Clear Calc 60.1 Estimated GFR 58 POC Glucose 324 H 358 H* Random Glucose 365 H* Lactic Acid Calcium 9.6 D B-Natriuretic Peptide COVID-19 (TIMMY) [id number] [employer] 11/02/21 11:34 MCV MCH MCHC RDW Plt Count MPV Immature Gran % (Auto) Neut % (Auto) Lymph % (Auto) [place] % (Auto) Eos % (Auto) Baso % (Auto) Lymph # (Auto) [place] # (Auto) Eos # (Auto) Baso # (Auto) Abs Immat Gran (auto) Absolute Neuts (auto) Absolute Nucleated RBC Nucleated RBC % (auto) VBG pH VBG pCO2 VBG pO2 VBG HCO3 VBG O2 Saturation VBG Base Excess Anion Gap Estim Creat Clear Calc Estimated GFR POC Glucose 339 H Random Glucose Lactic Acid Calcium B-Natriuretic Peptide COVID-19 (TIMMY) COVID-19 Clin Com Assessment and Plan (1) COPD exacerbation: Status: Acute (2) Hypoxia: Status: Acute Plan 60-year-old female with a past medical history of hypertension, hyperlipidemia, diabetes, CHF EF- 45%, CAD s/p PCI in 2018, COPD -recurrent COPD exacerbation, not on home oxygen, on chronic prednisone,; GERD, radiculopathy, multinodular goiter, MCKAY, pulmonary nodules; presented to the hospital today with a chief complaint of shortness of breath.? ? noted to be a good COPD exacerbation.? Admitted for further management.? Acute hypoxic respiratory failure due to Acute COPD exacerbation: Feeling better less short of breath, continue scheduled and as needed updraft treatment Chest x-ray showed no abnormality Wean IV Solu-Medrol , continue Doxycycline Patient not on home oxygen wean oxygen as tolerated Patient on Trelegy Ellipta,roflulimast,? montelukast,, prednisone 5 mg, and DuoNebs at home Anion gap metabolic acidosis question related to elevated blood sugars, renal functions stable, no diarrhea no history of ingestion Will treat with IV fluids treat blood sugars follow labs History of chronic back pain: Will resume home methocarbamol and? Oxycodone p.r.n. History diabetes:? Will resume Lantus b.i.d. and continue insulin sliding scale and diabetic diet follow blood sugars closely History of HTN/HLD/CAD:? Continue home aspirin, statin, Carvedilol, mild tachycardia likely due to nebulizer will follow History of diastolic CHF:? EF of 45% on echo 09/2020 at [facility].? Continue home Lasix. History of neuropathy: Continue home gabapentin DVT prophylaxis:? Lovenox Code status:? Full code Continue inpatient hospitalization due hypoxia and COPD requiring IV Solu Medrol updraft and oxygen therapy. Quality Stroke Does the patient have a stroke diagnosis?: No VTE Prior VTE?: No VTE Risk Level:: Medical - moderate - high VTE Device Contraindication: Treatment Not Indicated VTE Drug Contraindication: N/A - Med Ordered
--- NOTE | 2021-11-02 12:33 | P.CONPL_ITS ---
History of Present Illness History of Present Illness Consult date: 11/02/21 Reason for consult: dyspnea, cough and COPD Chief complaint: Acute COPD Narrative: THIS 60 YEARS OLD FEMALE IS A KNOWN CASE OF CHRONIC OBSTRUCTIVE PULMONARY DISEASE FOR THE PAST MANY YEARS, AT LEAST 15-20 YEARS. Ellipta She has history of recurrent exacerbations requiring hospitalization and she has been on maximum medical treatment, including frequent uses of the prednisone. Surprisingly when she quit smoking 2 years ago after that she had a long period of staying stable and had only a few admissions with acute exacerbations. She is on Trelegy Ellipta 1 inhalation daily, has nebulizer at home and uses DuoNeb solution Q 6 hours p.r.n., usually 2 to 3 times a day, She is also on Combivent Respimat, which she uses in place of DuoNeb updrafts, when outdoors. She is on Daliresp 500 mg b.i.d. She has not been qualified for oxygen so for. Each time she comes to the emergency room of or gets admitted on arrival her O2 sats are low but by the time she is ready to go home her O2 sats improve to normal level. She has multiple comorbidities including hypertension, coronary artery disease, status post PCI in 2018, hyperlipidemia, diabetes mellitus, congestive heart failure with ejection fraction of 45%. Lately she was doing well. She saw Dr. White in the office at the end of July 2021, was treated with 1 course of prednisone. And advised to continue all the regular medications. Today she comes in to the hospital through emergency room with increased cough and shortness of breath, and on arrival to the emergency room her O2 sat was in high 80s. She thinks that her breathing trouble has been initiated because of high E humidity. She has no fever or chills or chest pain. Cough is mostly dry a without any mucopurulent phlegm. She has been treated with IV Solu-Medrol DuoNeb updrafts and oxygen supplements and is already feeling much better. O2 is supplementation has been reduced to 1 L/minute, and actually at the time of my examination she is sitting in the bed comfortably, on room air, O2 sat 93- 95%. Review of Systems Review of Systems: Yes all other systems are reviewed and are negative Eyes: Eyes: Reports no additional eye complaints ENT: Reports system reviewed and no additional complaints, except as documented Cardiovascular: Cardiovascular: Denies chest pain, Denies irregular heart rhythm and Denies leg edema Respiratory: Respiratory: Reports as per HPI Gastrointestinal: Gastrointestinal: Reports no additional gastrointestinal complaints Genitourinary: Genitourinary: Reports no additional female genitourinary complaints Musculoskeletal: Musculoskeletal: Reports back pain (Chronic) Integumentary/Breasts: Skin/Breast: Reports system reviewed and no additional complaints, except as docu Psychiatric: Psychiatric: Reports no additional psychiatric complaints PMFSH Past Medical History Medical History (Updated 11/02/21 @ 12:53 by Ailin Ashley MD) Atelectasis COPD (chronic obstructive pulmonary disease) Goiter Lesion of bronchus Multinodular goiter Pneumonia Polycythemia Pulmonary nodules Smoker Subclinical hyperthyroidism Tracheal anomaly Vitamin D deficiency Family History Family History Father No problems noted. Mother No problems noted. Paternal Aunt Diabetes Surgical History Surgical History History of back surgery History of cholecystectomy History of tonsillectomy History of ureterostomy S/P lumpectomy, right breast Social History Social History Household Members: Spouse Housing: House Do you presently have visiting nurse or other home services: No Alcohol intake: never Patient Tobacco Use Status: Former Tobacco user Tobacco use type: Cigarette Cigarette Packs Per Day: 0.5 Cigarettes Per Day: 10.0 Smoked in Last 30 Days: Yes e-Cigarette/Vaping Use: Never Used Patient Interested in Nicotine Replacement: Yes Patient Given Instructions on How to Stop Smoking: Yes Date Education Initiated: 11/02/21 Second Hand Smoke Exposure: Yes Use of substances other than those prescribed or required for medical reasons: Yes Substance Use Type: Marijuana Substance Use Frequency: Socially Last Used Substance: Weeks (ago) Currently Displaying Signs/Symptoms of Drug Intoxication Withdrawal: No Have you been hit, kicked, punched, or otherwise hurt by someone within the past year? If so, by whom?: No Do you feel safe in your current relationship?: Yes Is there a partner from a previous relationship who is making you feel unsafe now?: No Are you made to feel afraid or neglected: No Advance Directives: Yes Advance Directives on File: Yes Advance Directives Date on File: 01/24/21 Do you have thoughts of harming others: None Do you have a plan to hurt others: No Plan Recently lost weight without trying: No Eating poorly because of decreased appetite: No Nutrition Risks: No Nutritional Risk Patient : No : No Poor oral hygiene: No service: No Current occupational status: retired Meds Allergies Allergy/AdvReac Type Severity Reaction Status Date / Time HANK Inhibitors Allergy Severe ANGIO Verified 11/01/21 19:49 [HANK INHIBITORS] EDEMA enalapril Allergy Severe Anaphylaxis Verified 11/01/21 19:49 erythromycin base Allergy Severe HIVES ALL Verified 11/01/21 19:49 [ERYTHROMYCIN BASE] OVER hydromorphone [From DILAUDID] AdvReac Severe TINGLING, Verified 11/01/21 19:49 PT DOES NOT LIKE THE FEELING MED GIVES HER Active Medications: Current Medications Acetaminophen (Acetaminophen 325 Mg Tablet) 650 mg PO Q6H PRN PRN Reason: Pain, Mild (Pain Scale 1-3) Albuterol/Ipratropium (Albuterol/Iprat 2.5/0.5mg 3 Ml Ampul.Neb) 3 ml INHALE RQ4H WHILE AWAKE SOM Last Admin: 11/02/21 11:39 Dose: 3 ml Albuterol/Ipratropium (Albuterol/Iprat 2.5/0.5mg 3 Ml Ampul.Neb) 3 ml INHALE RQ4H PRN PRN Reason: Shortness of Breath/Wheezing Atorvastatin Calcium (Atorvastatin Calcium 80 Mg Tablet) 80 mg PO BEDTIME SOM Carvedilol (Carvedilol 6.25 Mg Tablet) 6.25 mg PO BID SOM; Protocol Last Admin: 11/02/21 10:41 Dose: 6.25 mg Dextrose (Dextrose 50 % 25 Gm/50 Ml Syringe) 25 gm IVPUSH Q15M PRN; Protocol PRN Reason: per Hypoglycemia Standing Ord. Doxycycline Hyclate (Doxycycline Hyclate 100 Mg Tablet) 100 mg PO Q12H SOM Enoxaparin Sodium (Enoxaparin Sodium 40 Mg/0.4 Ml Syringe) 40 mg SUBCUT BEDTIME SOM Last Admin: 11/02/21 01:38 Dose: 40 mg Gabapentin (Gabapentin 300 Mg Capsule) 300 mg PO TID SOM Glucose (Glucose Gel 15 Gm Gel..Gram.) 15 gm PO Q15M PRN; Protocol PRN Reason: per Hypoglycemia Standing Ord. Sodium Chloride (Ns) 1,000 mls @ 100 mls/hr IVCONT .Q10H [facility] Stop: 11/02/21 19:14 Last Admin: 11/02/21 10:33 Dose: 100 mls/hr Insulin Glargine (Insulin Glargine,Hum.Rec.Anlog 100 Unit/Ml 10 Ml Vial) 30 unit SUBCUT BID [facility] Last Admin: 11/02/21 10:42 Dose: 30 unit Insulin Human Lispro (Insulin Lispro 100 Unit/Ml 3 Ml Vial) 0 unit SUBCUT QIDACHS [facility]; Protocol Last Admin: 11/02/21 06:49 Dose: 8 unit Melatonin (Melatonin 3 Mg Tablet) 6 mg PO BEDTIME PRN PRN Reason: Insomnia Methylprednisolone Sodium Succinate (Methylprednisolone Sod Succ 40 Mg/Ml Vial) 40 mg IVPUSH Q12H [facility] Last Admin: 11/02/21 10:41 Dose: 40 mg Non-Formulary Medication (Methocarbamol) 750 mg PO Q8H [facility] Non-Formulary Medication (Roflumilast [Daliresp]) 500 mcg PO DAILY [facility] Oxycodone HCl (Oxycodone Hcl Immed Release 5 Mg Tablet) 7.5 mg PO Q6H PRN PRN Reason: Pain, Severe (Pain Scale 7-10) Last Admin: 11/02/21 10:48 Dose: 7.5 mg Senna (Sennosides 8.6 Mg Tablet) 17.2 mg PO BEDTIME PRN PRN Reason: Constipation Sodium Chloride (0.9 % Sodium Chloride Flush 3 Ml Syringe) 3 ml IVFLUSH QSHIFT [facility] Last Admin: 11/02/21 10:41 Dose: 3 ml Home Medications Medication Instructions Recorded Confirmed Last Taken Type aspirin 81 mg tablet,delayed 81 mg PO DAILY 12/24/19 11/02/21 01/23/21 09:30 History release atorvastatin 80 mg tablet 80 mg PO BEDTIME 12/24/19 11/02/21 01/23/21 09:30 History carvedilol 6.25 mg tablet 6.25 mg PO BID 12/24/19 11/02/21 01/23/21 09:30 History cetirizine 10 mg tablet 10 mg PO DAILY 12/24/19 11/02/21 01/23/21 09:30 History montelukast 10 mg tablet 10 mg PO BEDTIME 12/24/19 11/02/21 01/23/21 09:30 History omeprazole 20 mg capsule,delayed 20 mg PO BID 12/24/19 11/02/21 01/23/21 09:30 History release oxycodone-acetaminophen 7.5 mg-325 1 tab PO Q6H 12/24/19 11/02/21 01/23/21 09:30 History mg tablet ipratropium 20 mcg-albuterol 100 1 puff inhalation QID 01/02/20 11/02/21 01/23/21 09:30 History mcg/actuation mist for inhalation (Combivent Respimat) docusate sodium 100 mg capsule 1 cap PO BEDTIME PRN Constipation 01/24/21 11/02/21 Unknown History lidocaine 5 % topical cream 1 appl topical DAILY 01/24/21 11/02/21 Unknown History sennosides 8.6 mg tablet (senna) 2 tab PO DAILY 01/24/21 11/02/21 Unknown History fluticasone propionate 50 2 spray intranasal DAILY 02/19/21 11/02/21 Unknown History mcg/actuation nasal spray,suspension dulaglutide 0.75 mg/0.5 mL 0.75 mg subcut REESE@1000 08/20/21 11/02/21 10/27/21 History subcutaneous pen injector (Trulicity) blood sugar diagnostic (FreeStyle #10 ea 10/07/21 Unknown History Lite Strips) gabapentin 300 mg capsule 300 mg PO TID 10/07/21 11/02/21 Unknown History lancets 33 gauge (TRUEplus Lancets) #100 ea 10/07/21 Unknown History naloxone 4 mg/actuation nasal spray 1 spray intranasal ONCE PRN Opioid 10/07/21 11/02/21 Unknown History Overdose albuterol sulfate 90 mcg/actuation 2 puff inhalation Q4-6H PRN 11/02/21 11/02/21 Unknown History aerosol inhaler (Ventolin HFA) Respiratory Distress cholecalciferol (vitamin D3) 50 2,000 mcg PO DAILY 11/02/21 11/02/21 Unknown History mcg (2,000 unit) capsule fluticasone fur. 100 mcg-umeclid 1 inh PO DAILY 11/02/21 11/02/21 Unknown History 62.5 mcg-vilant 25 mcg inhalat.powder (Trelegy Ellipta) insulin glargine 100 unit/mL (3 25 unit subcut BID 11/02/21 11/02/21 Unknown Hi story mL) subcutaneous pen (Lantus Solostar U-100 Insulin) insulin lispro 100 unit/mL 0 unit subcut TID 11/02/21 11/02/21 Unknown History subcutaneous pen (Humalog KwikPen (U-100) Insulin) ipratropium 0.5 mg-albuterol 3 mg 3 ml inhalation QID PRN 11/02/21 11/02/21 Unknown History (2.5 mg base)/3 mL nebulization Respiratory Distress soln nicotine 21 mg/24 hr daily 1 patch transdermal DAILY 11/02/21 11/02/21 Unknown History transdermal patch roflumilast 500 mcg tablet 500 mcg PO DAILY 11/02/21 11/02/21 Unknown History (Daliresp) Physical Exam Vital Signs: Vital Signs: Last Vital Signs Temp 98.4 F 11/02/21 11:33 Pulse 108 H 11/02/21 11:33 Resp 18 11/02/21 11:33 BP 159/86 H 11/02/21 11:33 Pulse Ox 95 11/02/21 11:33 O2 Del Method 11/02/21 11:33 O2 Flow Rate 2 11/02/21 11:33 BMI result Body Mass Index 26.6 Const: General: comfortable, no acute distress, alert and awake Orientation/consciousness: patient oriented x3 HEENT: Head: Yes normal to inspection General nose exam: No nasal polyps present and No nasal discharge present Face and sinus: Yes sinuses nontender Mouth: oropharynx normal Throat: Yes posterior oropharynx normal Eyes: General: appearance normal, both eyes and all related structures Neck: Neck: Yes normal visual inspection, Yes no lymphadenopathy, Yes trachea midline and Yes no JVD Thyroid: Thyroid normal Chest: Chest palpation & inspection: normal inspection of the chest, normal palpation of entire chest wall and no tenderness Resp: Other: Percussion note resonant. Breath sounds are distant with prolonged expiratory phase. A few scattered expiratory wheezes heard on both sides. No crepitations or rhonchi. Cardio: Palpation: normal PMI Rate: regular rate Rhythm: regular rhythm Heart sounds: no gallops and no murmurs GI: Palpation (GI): Soft to palpation, nontender, No hepatosplenomegaly present and no masses Auscultation: normal bowel sounds Back/Spine/Pelvis: Thoracic/Lumbar Spine: thoracic and lumbar spine normal to inspection and thoraco-lumbar ROM limited Skin: General skin exam: no rashes or lesions noted Neuro: General: patient oriented x3 and no focal motor deficits Cranial nerves: Yes CN's II-XII intact bilaterally Extrem: General: Yes normal to inspection, Yes no clubbing, cyanosis or edema and Yes no calf tenderness Psych: Appearance: grossly normal and well kempt Speech and movement: Normal speech and movement present Results Laboratory Findings CBC and BMP: 11/02/21 06:45 11/02/21 06:45 Abnormal lab findings: Abnormal Labs 11/01/21 11/01/21 11/02/21 20:21 20:21 02:21 WBC 12.5 H RBC Hgb 16.3 H Hct 47.7 H Immature Gran % (Auto) 0.5 H Neut % (Auto) Lymph % (Auto) [place] % (Auto) Eos % (Auto) 5.8 H Lymph # (Auto) Eos # (Auto) 0.7 H Abs Immat Gran (auto) 0.06 H Absolute Neuts (auto) Carbon Dioxide Anion Gap POC Glucose 370 H* Random Glucose 161 H 11/02/21 11/02/21 11/02/21 05:59 06:45 06:45 WBC RBC 5.58 H Hgb 16.3 H Hct 48.4 H Immature Gran % (Auto) 1.0 H Neut % (Auto) 89.5 H Lymph % (Auto) 8.3 L [place] % (Auto) 0.8 L Eos % (Auto) Lymph # (Auto) 0.9 L Eos # (Auto) Abs Immat Gran (auto) 0.11 H Absolute Neuts (auto) 9.5 H Carbon Dioxide 18 L Anion Gap 24 H POC Glucose 350 H* Random Glucose 365 H* 11/02/21 11/02/21 11/02/21 07:19 08:55 11:34 WBC RBC Hgb Hct Immature Gran % (Auto) Neut % (Auto) Lymph % (Auto) [place] % (Auto) Eos % (Auto) Lymph # (Auto) Eos # (Auto) Abs Immat Gran (auto) Absolute Neuts (auto) Carbon Dioxide Anion Gap POC Glucose 324 H 358 H* 339 H Random Glucose Diagnostic Findings Chest x-ray: report reviewed and image reviewed Assessment and Plan (1) COPD exacerbation: Status: Acute (2) Hypoxia: Status: Acute (3) Smoker: Status: Acute (4) Polycythemia: Status: Acute Plan This patient has mild acute exacerbation of chronic obstructive pulmonary disease, most likely secondary to recent restarting of smoking and change in the air quality. There is no evidence of any acute infection, hence I do not think she needs to be treated with antibiotics. She has already improved to almost her baseline. Recc : Patient was counseled to stop smoking completely. She may use nicotine patch 14 mg once a day for the next 1 or 2 months. She is being weaned off oxygen already, but before discharge can be evaluated for home O2 therapy. After 1 day on IV Solu-Medrol she can be switched to prednisone 40 mg a day for 5 days. At home she should continue Trelegy 1 inhalation daily, DuoNeb updrafts Q 4-6 hours p.r.n, daily resp 500 mg b.i.d., Zyrtec 10 mg once a day p.r.n. for nasal congestion. She should make appointment in the Pulmonary office for follow-up in about 2 weeks. Patient does have mild polycythemia which is most likely secondary to smoking, another reason that she should quit smoking completely. Procedures Date of Service Date of Service: 11/02/21
[2021-11-02] MEDS: Gabapentin 300 MG CAPSULE PO ×2 (13:30→21:21)
[2021-11-02 16:15] LABS: Anion Gap 17 (12-20); Blood Urea Nitrogen 17 mg/dL (9-16); Calcium 9.1 mg/dL (8.4-10.2); Carbon Dioxide 25 mmol/L (22-29); Chloride 105 mmol/L (96-108); Creatinine Clr Calc Pharmacy 47.9; Estimated Glomerular Filt Rate 44; Glucose Random 328 mg/dL (60-115); Potassium 4.6 mmol/L (3.3-5.1); Sodium 142 mmol/L (135-145)
[2021-11-02 16:15] LABS: Glucose, Whole Blood 320 mg/dL (60-115)
--- NOTE | 2021-11-02 19:30 | PHA.PROG ---
Admission Date/Time: November 01, 2021 23:25 Indication: Bacteremia Weight in k.575 kg Adjusted body weight in K.23 kg [place] body weight in K kg Obesity Dosing Indication % IBW: 127% Serum Creatinine - Last 168 Hours 11/01/21 11/02/21 11/02/21 20:21 06:45 15:54 Creatinine 0.81 0.98 1.23 Estimated CrCl and GFR - Last 168 Hours 11/01/21 11/02/21 11/02/21 20:21 06:45 15:54 Estim Creat Clear Calc 72.8 60.1 47.9 Estimated GFR > 60 58 44 Vancomycin Loading Dose: 1750 mg (24 mg/kg) Current Vancomycin Dosing Regimen: 500 mg Q12H Date and Time for next Vancomycin Level to be drawn: 11/04 @ 0600 Pharmacist Comments on Vancomycin Plan: Patient is slightly obese with a %IBW > 120%. Patient renal function has decline since this morning. With these to risk factor we will be more cautious with vancomycin dosing Patient schedule to recieve loading dose vancomycin 1750 mg on 11/02 @ 1999. Maintenance dose to begin @ 0800. Based on obesity dosing expected AUC 530 with a trough of 18.6. Q12H dosing has a great percent that patient will be in theraputic ranges of Q24H. Trough to be drawn prior to 4th dose on 11/03 @ 0600. If any changes in renal function, and earlier level may need to be drawn. Pharmacy to monitor renal fucntion daily. Aria Archibald PharmD Vancomycin dosing will take advantage of [employer] as a clinical decision support tool that uses Bayesian modeling to calculate individual patient's pharmacokinetic parameters and forecast the patient's drug concentration time course with the target goal AUC 24 range of 400 - 600 mg/L/hr.
[2021-11-02 21:13] LABS: Glucose, Whole Blood 254 mg/dL (60-115)
[2021-11-02] MEDS: Atorvastatin Calcium 80 MG TABLET PO (21:21)
[2021-11-02] MEDS: vancomycin HCL 1,000 MG, vancomycin HCL 750 MG in 0.9 % Sodium Chloride 500 ML 267.5 MG IV (21:21)
[2021-11-03] VITALS (10 sets, daily range): BP systolic 127–145; BP diastolic 60–70; PULSE 78–92; RESP 16–20; TEMP 36.3–36.9; O2SAT 90–97
[2021-11-03] MEDS: oxyCODONE HCl Immed Release 5 MG TABLET 7.5 MG PO ×4 (01:28→21:39)
[2021-11-03 07:23] LABS: Estimated Glomerular Filt Rate > 60
[2021-11-03 07:31] LABS: Glucose, Whole Blood 258 mg/dL (60-115)
[2021-11-03] MEDS: Albuterol/Iprat 2.5/0.5MG 3 ML AMPUL.NEB INHALE ×4 (07:43→19:34)
[2021-11-03] MEDS: 0.9 % Sodium Chloride Flush 3 ML SYRINGE IVFLUSH ×2 (07:57→14:19)
[2021-11-03] MEDS: vancomycin HCL 500 MG in 0.9 % Sodium Chloride 100 ML 110 MG IV (07:59)
[2021-11-03] MEDS: carvediloL 6.25 MG TABLET PO ×2 (08:01→21:38)
[2021-11-03] MEDS: Gabapentin 300 MG CAPSULE PO ×3 (08:02→21:41)
[2021-11-03] MEDS: Insulin Glargine,Hum.rec.anlog 100 UNIT/ML 10 ML VIAL 30 UNIT SUBCUT ×2 (08:25→21:42)
[2021-11-03] MEDS: Insulin Lispro 100 UNIT/ML 3 ML VIAL SUBCUT ×3 (08:26→21:42)
[2021-11-03] MEDS: Cholecalciferol (Vitamin D3) 25 MCG TABLET 50 MCG PO (10:11)
[2021-11-03] MEDS: Omeprazole 20 MG CAPSULE.DR PO ×2 (10:12→16:39)
[2021-11-03] MEDS: Fluticasone Propionate Nasal 16 GM SPRAY 2 SPRAY NOSTRIL-B (10:12)
--- NOTE | 2021-11-03 11:23 | HE.PHANOTE ---
RE RICARDA Increasing dose to 750mg q12h auc 553, trough 18/ trough due 11/04@0600
[2021-11-03 11:54] LABS: Glucose, Whole Blood 142 mg/dL (60-115)
[2021-11-03] MEDS: methylPREDNISolone Sod Succ 40 MG/ML VIAL IVPUSH (12:24)
--- NOTE | 2021-11-03 13:15 | HO.PM.IMPN ---
Subjective Subjective Date of Service: 11/04/21 Interval History: Very anxious to know that her oxygenation dropped to 91% at night, feels better less shortness of breath and cough, no fevers no chills, tolerating diet with no nausea no vomiting, no diarrhea, complain of leg spasm focused on her home medication Review of Systems [employer] no headache no dizziness CVS no chest pain, no palpitation no urinary urgency, no frequency Review of Systems: Yes all other systems are reviewed and are negative Physical Exam Vital Signs: Vital Signs: Last Vital Signs Temp 98.1 F 11/03/21 11:32 Pulse 78 11/03/21 11:32 Resp 18 11/03/21 11:32 BP 127/70 11/03/21 11:32 Pulse Ox 97 11/03/21 11:32 O2 Del Method 11/03/21 11:32 O2 Flow Rate 1 11/03/21 07:15 BMI result Body Mass Index 26.6 Const: Other: General awake/aler t x3, in no acute distress.? Neck no JVD. CVS? regular rate rhythm, Resp iratory lungs no r espiratory distres s, occasional expi ratory wheeze, no rhonchi.? No use o f accessory muscle s Gastrointestinal abdomen soft, non tender, bowel soun ds audible, no gua rding , no rigidit y. Extremities no edema.no spasm Josefina ro nonfocal , spee ch clear. Skin no rash Neuro nonfoca l Objective Data Active Medications Acetaminophen (Acetaminophen 325 Mg Tablet) 650 mg PO Q6H PRN PRN Reason: Pain, Mild (Pain Scale 1-3) Albuterol/Ipratropium (Albuterol/Iprat 2.5/0.5mg 3 Ml Ampul.Neb) 3 ml INHALE RQ4H WHILE AWAKE [facility] Last Admin: 11/03/21 11:28 Dose: 3 ml Documented By: LATRICE Albuterol/Ipratropium (Albuterol/Iprat 2.5/0.5mg 3 Ml Ampul.Neb) 3 ml INHALE RQ4H PRN PRN Reason: Shortness of Breath/Wheezing Atorvastatin Calcium (Atorvastatin Calcium 80 Mg Tablet) 80 mg PO BEDTIME [facility] Last Admin: 11/02/21 21:21 Dose: 80 mg Documented By: TEDDY Carvedilol (Carvedilol 6.25 Mg Tablet) 6.25 mg PO BID [facility]; Protocol Last Admin: 11/03/21 08:01 Dose: 6.25 mg Documented By: DAV Dextrose (Dextrose 50 % 25 Gm/50 Ml Syringe) 25 gm IVPUSH Q15M PRN; Protocol PRN Reason: per Hypoglycemia Standing Ord. Docusate Sodium (Docusate Sodium 100 Mg Capsule) 100 mg PO BEDTIME PRN PRN Reason: Constipation Doxycycline Hyclate (Doxycycline Hyclate 100 Mg Tablet) 100 mg PO Q12H [facility] Last Admin: 11/03/21 08:01 Dose: 100 mg Documented By: DAV Enoxaparin Sodium (Enoxaparin Sodium 40 Mg/0.4 Ml Syringe) 40 mg SUBCUT BEDTIME [facility] Last Admin: 11/02/21 21:22 Dose: 40 mg Documented By: TEDDY Fluticasone Propionate (Fluticasone Propionate Nasal 16 Gm [place]) 2 spray NOSTRIL-B DAILY [facility] Last Admin: 11/03/21 10:12 Dose: 2 spray Documented By: DAV Gabapentin (Gabapentin 300 Mg Capsule) 300 mg PO TID [facility] Last Admin: 11/03/21 08:02 Dose: 300 mg Documented By: DAV Glucose (Glucose Gel 15 Gm Gel..Gram.) 15 gm PO Q15M PRN; Protocol PRN Reason: per Hypoglycemia Standing Ord. Vancomycin HCl 750 mg/ Sodium (Chloride) 265 mls @ 265 mls/hr IV Q12H [facility] Insulin Glargine (Insulin Glargine,Hum.Rec.Anlog 100 Unit/Ml 10 Ml Vial) 30 unit SUBCUT BID [facility] Last Admin: 11/03/21 08:25 Dose: 30 unit Documented By: DAV Insulin Human Lispro (Insulin Lispro 100 Unit/Ml 3 Ml Vial) 0 unit SUBCUT QIDACHS [facility]; Protocol Last Admin: 11/03/21 12:27 Dose: Not Given Documented By: DAV Non-Admin Reason: parameters not met Melatonin (Melatonin 3 Mg Tablet) 6 mg PO BEDTIME PRN PRN Reason: Insomnia Methylprednisolone Sodium Succinate (Methylprednisolone Sod Succ 40 Mg/Ml Vial) 40 mg IVPUSH Q12H [facility] Last Admin: 11/03/21 12:24 Dose: 40 mg Documented By: DAV Montelukast Sodium (Montelukast Sodium 10 Mg Tablet) 10 mg PO BEDTIME [facility] Nicotine (Nicotine 21 Mg Patch.Td24) 21 mg TRANSDERMA DAILY [facility] Patient Own( Roflumilast [ Daliresp] 500 Mcg Tablet) 500 mcg PO DAILY [facility] Last Admin: 11/03/21 08:39 Dose: 500 mcg Documented By: DAV Patient Own ( Fluticasone- Umeclidin-Vilanter [ Trelegy Ellipta] 100 -62.5-25 Mcg 1 inhalation PO RDAILY [facility] Last Admin: 11/03/21 08:39 Dose: 1 inhalation Documented By: DAV Non-Formulary Medication (Dulaglutide [Trulicity]) 0.75 mg SUBCUT REESE@1000 [facility] Non-Formulary Medication (Budesonide) 0.5 mg INHALE DAILY [facility] Omeprazole (Omeprazole 20 Mg Capsule.Dr) 20 mg PO BID@0630,1630 [facility] Last Admin: 11/03/21 10:12 Dose: 20 mg Documented By: DAV Oxycodone HCl (Oxycodone Hcl Immed Release 5 Mg Tablet) 7.5 mg PO Q6H [facility] Last Admin: 11/03/21 10:14 Dose: Not Given Documented By: DAV Non-Admin Reason: given already Pharmacy Consult (Consult Rx Vancomycin Dosing) 1 each MISCELLANE DAILY PRN PRN Reason: Consult order Senna (Sennosides 8.6 Mg Tablet) 17.2 mg PO BEDTIME PRN PRN Reason: Constipation Sodium Chloride (0.9 % Sodium Chloride Flush 3 Ml Syringe) 3 ml IVFLUSH QSHIFT [facility] Last Admin: 11/03/21 07:57 Dose: 3 ml Documented By: DAV Vitamin D (Cholecalciferol (Vitamin D3) 25 Mcg Tablet) 50 mcg PO DAILY [facility] Last Admin: 11/03/21 10:11 Dose: 50 mcg Documented By: DAV Labs CBC & Chem 7: 11/02/21 06:45 11/04/21 05:32 Labs: Laboratory Results - last 24 hr 11/02/21 11/02/21 11/02/21 15:54 15:59 21:06 Anion Gap 17 Estim Creat Clear Calc 47.9 Estimated GFR 44 POC Glucose 320 H 254 H Random Glucose 328 H Calcium 9.1 11/03/21 11/03/21 11/03/21 06:31 07:18 11:34 Anion Gap Estim Creat Clear Calc 71.0 Estimated GFR > 60 POC Glucose 258 H 142 H Random Glucose Calcium Microbiology Microbiology Results: Microbiology 11/01/21 20:51 Blood Culture - Final Blood - Venous Coag negative Staphylococcus 11/01/21 20:28 Blood Culture - Preliminary Blood - Venous No growth after 24 hours. Assessment and Plan (1) COPD exacerbation: Status: Acute (2) Hypoxia: Status: Acute Plan 60-year-old female with a past medical history of hypertension, hyperlipidemia, diabetes, CHF EF- 45%, CAD s/p PCI in 2018, COPD -recurrent COPD exacerbation, not on home oxygen, on chronic prednisone,; GERD, radiculopathy, multinodular goiter, MCKAY, pulmonary nodules; presented to the hospital today with a chief complaint of shortness of breath.? ? noted to be a good COPD exacerbation.? Admitted for further management.? Acute hypoxic respiratory failure due to Acute COPD exacerbation: Feeling better less short of breath, continue scheduled and as needed updraft treatment , continue IV Solu Medrol and doxycycline for 1 more day and gradually Chest x-ray showed no abnormality Patient not on home oxygen wean oxygen as tolerated , oxygenation dropped overnight likely during sleep will follow clinical course closely Continue home inhalers Trelegy Ellipta,roflulimast, and? montelukast Gm positive cocci bacteremia placed on IV vancomycin no skin lesions noted continue vanco follow final blood culture report Anion gap metabolic acidosis likely related to elevated blood sugars, resolved with IV fluids and better blood sugar control, renal functions stable, no diarrhea no history of ingestion History of chronic back pain: cont. home methocarbamol and? Oxycodone p.r.n. History diabetes:? on Lantus b.i.d. and continue insulin sliding scale and diabetic diet follow blood sugars closely History of HTN/HLD/CAD:? Continue home aspirin, statin, Carvedilol, mild tachycardia likely due to nebulizer will follow History of diastolic CHF:? EF of 45% on echo 09/2020 at [facility].? Continue home Lasix. No acute exacerbation History of neuropathy: Continue home gabapentin DVT prophylaxis:? Lovenox Code status:? Full code Continue inpatient hospitalization due to COPD requiring IV Solu Medrol ,updraft and on IV antibiotic for Gram-positive cocci bacterimia . Quality Stroke Does the patient have a stroke diagnosis?: No VTE Prior VTE?: No VTE Risk Level:: Medical - moderate - high VTE Device Contraindication: Treatment Not Indicated VTE Drug Contraindication: N/A - Med Ordered
[2021-11-03] MEDS: Nicotine 21 MG PATCH.TD24 TRANSDERMA (14:15)
[2021-11-03 16:22] LABS: Glucose, Whole Blood 297 mg/dL (60-115)
[2021-11-03 21:12] LABS: Glucose, Whole Blood 311 mg/dL (60-115)
[2021-11-03] MEDS: Atorvastatin Calcium 80 MG TABLET PO (21:38)
[2021-11-03] MEDS: Montelukast Sodium 10 MG TABLET PO (21:38)
[2021-11-03] MEDS: vancomycin HCL 750 MG in 0.9 % Sodium Chloride 250 ML 265 MG IV (21:44)
[2021-11-03] MEDS: Enoxaparin Sodium 40 MG/0.4 ML SYRINGE SUBCUT (21:44)
[2021-11-04] VITALS (10 sets, daily range): BP systolic 132–158; BP diastolic 67–92; PULSE 71–86; RESP 16–20; TEMP 36.1–36.8; O2SAT 92–96
[2021-11-04] MEDS: methylPREDNISolone Sod Succ 40 MG/ML VIAL IVPUSH ×3 (00:19→21:45)
[2021-11-04] MEDS: oxyCODONE HCl Immed Release 5 MG TABLET 7.5 MG PO ×3 (05:53→19:26)
[2021-11-04] MEDS: Omeprazole 20 MG CAPSULE.DR PO ×2 (05:53→15:49)
[2021-11-04 06:17] LABS: Creatinine Clr Calc Pharmacy 73.7; Estimated Glomerular Filt Rate > 60
[2021-11-04 06:23] LABS: Vancomycin Trough 14.2 mcg/mL (10.0-20.0)
--- NOTE | 2021-11-04 06:44 | HE.PHANOTE ---
RE VANCO SCR DOWN TO 0.80 TODAY. CONTINUE CURRENT DOSE. NEXT RANDOM 11/05 @0600. PREDICTED AUC 464, TROUGH 16.1
[2021-11-04 07:21] LABS: Glucose, Whole Blood 303 mg/dL (60-115)
[2021-11-04] MEDS: Albuterol/Iprat 2.5/0.5MG 3 ML AMPUL.NEB INHALE ×4 (07:31→20:03)
[2021-11-04] MEDS: Gabapentin 300 MG CAPSULE PO ×3 (08:09→21:12)
[2021-11-04] MEDS: Insulin Lispro 100 UNIT/ML 3 ML VIAL SUBCUT ×4 (08:10→21:13)
[2021-11-04] MEDS: carvediloL 6.25 MG TABLET PO ×2 (08:10→21:12)
[2021-11-04] MEDS: Cholecalciferol (Vitamin D3) 25 MCG TABLET 50 MCG PO (08:10)
[2021-11-04] MEDS: 0.9 % Sodium Chloride Flush 3 ML SYRINGE IVFLUSH ×3 (08:11→21:14)
[2021-11-04] MEDS: Nicotine 21 MG PATCH.TD24 TRANSDERMA (08:27)
[2021-11-04] MEDS: Insulin Glargine,Hum.rec.anlog 100 UNIT/ML 10 ML VIAL 30 UNIT SUBCUT ×2 (08:28→21:12)
[2021-11-04] MEDS: Fluticasone Propionate Nasal 16 GM SPRAY 2 SPRAY NOSTRIL-B (11:05)
[2021-11-04 11:14] LABS: Glucose, Whole Blood 296 mg/dL (60-115)
--- NOTE | 2021-11-04 11:24 | HO.PM.IMPN ---
Subjective Subjective Date of Service: 11/04/21 Interval History: Still short of breath with minimal movement Wheezing On 1L O2 via [place] BCx growing coag-neg Staph Review of Systems Review of Systems: Yes all other systems are reviewed and are negative Physical Exam Vital Signs: Vital Signs: Last Vital Signs Temp 97.2 F 11/04/21 07:33 Pulse 74 11/04/21 07:33 Resp 20 11/04/21 07:33 BP 158/76 H 11/04/21 07:33 Pulse Ox 93 11/04/21 07:33 O2 Del Method 11/04/21 07:33 O2 Flow Rate 1 11/04/21 07:33 BMI result Body Mass Index 26.6 Gen: in no acute distress HEENT: sclera anicteric, moist mucus membranes Neck: supple Lungs: diminished, expiratory wheezes L>R base Heart: RRR no murmurs Abd: soft, non-tender, non-distended Ext: no edema Skin: warm/well-perfused Neuro: alert and oriented x3, no focal findings Psych: appropriate affect Objective Data Active Medications Acetaminophen (Acetaminophen 325 Mg Tablet) 650 mg PO Q6H PRN PRN Reason: Pain, Mild (Pain Scale 1-3) Albuterol/Ipratropium (Albuterol/Iprat 2.5/0.5mg 3 Ml Ampul.Neb) 3 ml INHALE RQ4H WHILE AWAKE [facility] Last Admin: 11/04/21 07:31 Dose: 3 ml Documented By: LATRICE Albuterol/Ipratropium (Albuterol/Iprat 2.5/0.5mg 3 Ml Ampul.Neb) 3 ml INHALE RQ4H PRN PRN Reason: Shortness of Breath/Wheezing Atorvastatin Calcium (Atorvastatin Calcium 80 Mg Tablet) 80 mg PO BEDTIME [facility] Last Admin: 11/03/21 21:38 Dose: 80 mg Documented By: BRANDON Carvedilol (Carvedilol 6.25 Mg Tablet) 6.25 mg PO BID [facility]; Protocol Last Admin: 11/04/21 08:10 Dose: 6.25 mg Documented By: KIMANI Dextrose (Dextrose 50 % 25 Gm/50 Ml Syringe) 25 gm IVPUSH Q15M PRN; Protocol PRN Reason: per Hypoglycemia Standing Ord. Docusate Sodium (Docusate Sodium 100 Mg Capsule) 100 mg PO BEDTIME PRN PRN Reason: Constipation Doxycycline Hyclate (Doxycycline Hyclate 100 Mg Tablet) 100 mg PO Q12H [facility] Last Admin: 11/04/21 11:05 Dose: 100 mg Documented By: KIMANI Enoxaparin Sodium (Enoxaparin Sodium 40 Mg/0.4 Ml Syringe) 40 mg SUBCUT BEDTIME [facility] Last Admin: 11/03/21 21:44 Dose: 40 mg Documented By: BRANDON Fluticasone Propionate (Fluticasone Propionate Nasal 16 Gm [place]) 2 spray NOSTRIL-B DAILY [facility] Last Admin: 11/04/21 11:05 Dose: 2 spray Documented By: KIMANI Gabapentin (Gabapentin 300 Mg Capsule) 300 mg PO TID [facility] Last Admin: 11/04/21 08:09 Dose: 300 mg Documented By: KIMANI Glucose (Glucose Gel 15 Gm Gel..Gram.) 15 gm PO Q15M PRN; Protocol PRN Reason: per Hypoglycemia Standing Ord. Insulin Glargine (Insulin Glargine,Hum.Rec.Anlog 100 Unit/Ml 10 Ml Vial) 30 unit SUBCUT BID [facility] Last Admin: 11/04/21 08:28 Dose: 30 unit Documented By: KIMANI Insulin Human Lispro (Insulin Lispro 100 Unit/Ml 3 Ml Vial) 0 unit SUBCUT QIDACHS [facility]; Protocol Last Admin: 11/04/21 08:10 Dose: 8 unit Documented By: KIMANI Melatonin (Melatonin 3 Mg Tablet) 6 mg PO BEDTIME PRN PRN Reason: Insomnia Methylprednisolone Sodium Succinate (Methylprednisolone Sod Succ 40 Mg/Ml Vial) 40 mg IVPUSH Q12H [facility] Last Admin: 11/04/21 00:19 Dose: 40 mg Documented By: BRANDON Montelukast Sodium (Montelukast Sodium 10 Mg Tablet) 10 mg PO BEDTIME [facility] Last Admin: 11/03/21 21:38 Dose: 10 mg Documented By: BRANDON Nicotine (Nicotine 21 Mg Patch.Td24) 21 mg TRANSDERMA DAILY [facility] Last Admin: 11/04/21 08:27 Dose: 21 mg Documented By: KIMANI Patient Own( Roflumilast [ Daliresp] 500 Mcg Tablet) 500 mcg PO DAILY [facility] Last Admin: 11/04/21 08:08 Dose: 500 mcg Documented By: KIMANI Patient Own ( Fluticasone- Umeclidin-Vilanter [ Trelegy Ellipta] 100 -62.5-25 Mcg 1 inhalation PO RDAILY [facility] Last Admin: 11/04/21 08:26 Dose: 1 inhalation Documented By: KIMANI Non-Formulary Medication (Dulaglutide [Trulicity]) 0.75 mg SUBCUT REESE@1000 [facility] Non-Formulary Medication (Budesonide) 0.5 mg INHALE DAILY [facility] Omeprazole (Omeprazole 20 Mg Capsule.Dr) 20 mg PO BID@0630,1630 [facility] Last Admin: 11/04/21 05:53 Dose: 20 mg Documented By: BRANDON Oxycodone HCl (Oxycodone Hcl Immed Release 5 Mg Tablet) 7.5 mg PO Q6H [facility] Last Admin: 11/04/21 11:05 Dose: Not Given Documented By: KIMANI Non-Admin Reason: Previously Administered Pharmacy Consult (Consult Rx Vancomycin Dosing) 1 each MISCELLANE DAILY PRN PRN Reason: Consult order Senna (Sennosides 8.6 Mg Tablet) 17.2 mg PO BEDTIME PRN PRN Reason: Constipation Sodium Chloride (0.9 % Sodium Chloride Flush 3 Ml Syringe) 3 ml IVFLUSH QSHIFT [facility] Last Admin: 11/04/21 08:11 Dose: 3 ml Documented By: KIMANI Vitamin D (Cholecalciferol (Vitamin D3) 25 Mcg Tablet) 50 mcg PO DAILY [facility] Last Admin: 11/04/21 08:10 Dose: 50 mcg Documented By: KIMANI Labs CBC & Chem 7: 11/02/21 06:45 11/04/21 05:32 Labs: Laboratory Results - last 24 hr 11/03/21 11/03/21 11/03/21 11:34 16:07 20:57 Estim Creat Clear Calc Estimated GFR POC Glucose 142 H 297 H 311 H Vancomycin Trough 11/04/21 11/04/21 11/04/21 05:32 05:32 07:15 Estim Creat Clear Calc 73.7 Estimated GFR > 60 POC Glucose 303 H Vancomycin Trough 14.2 11/04/21 11:09 Estim Creat Clear Calc Estimated GFR POC Glucose 296 H Vancomycin Trough Microbiology Microbiology Results: Microbiology 11/01/21 20:28 Blood Culture - Preliminary Blood - Venous No growth after 48 hours. 11/01/21 20:51 Blood Culture - Final Blood - Venous Coag negative Staphylococcus Assessment and Plan (1) COPD exacerbation: Status: Acute (2) Hypoxia: Status: Acute Plan hospital d#4 60yo F with HTN, HLD, DM2, HF with mildly reduced EF of 45%, CAD s/p PCI (2018), COPD on chronic prednisone, GERD, radiculopathy, MNG, MCKAY, pulmonary nodules admitted for COPD exacerbation # acute hypoxic resp failure - wean O2 as tolerated; home O2 eval # acute COPD exacerbation - continue doxycycline, steroids, and bronchodilators and home controller inhalers + montelukast + roflumilast # Gm-positive bacteremia, NOT - contaminant, vancomycin d/c'ed # anion gap metabolic acidosis - resolved with IV fluids + better glycemic control # chronic back pain - oxycodone prn + methocarbamol # DM2 - basal/bolus insulin # HTN # HLD # CAD # HF with mildly reduced EF - ASA, statin, carvedilol, furosemide # neuropathy - gabapentin # VTE ppx; LMWH In my clinical judgment, the patient requires continued hospitalization for the following reasons: hypoxia Quality Stroke Does the patient have a stroke diagnosis?: No VTE Prior VTE?: No VTE Risk Level:: Medical - moderate - high VTE Device Contraindication: Treatment Not Indicated VTE Drug Contraindication: N/A - Med Ordered
--- NOTE | 2021-11-04 11:37 | P.CDIC_ITS ---
CDI Concurrent Query Documentation Clarification: PHYSICIAN'S DOCUMENTATION REQUEST Date of Query: 11/04/21 1131 Patient Name: Marita Lawrence Admit Date: 11/01/21 Dear Doctor, A review of the medical record indicates additional documentation may be needed. Please review below and update the documentation accordingly. Clinical Indicators: Risk Factors/Clinical Indicators/Treatments Diabetes mellitus Type 2, Lantus 20 units Neuropathy - Gabapentin Please clarify the following regarding Diabetes Mellitus (DM): Neuropathy - Type/Etiology - -Diabetes mellitus Type 2 with neuropathy -Neuropathy due to other etiology * Peripheral * Polyneuropathy * Autonomic * Mononeuropathy * Other * Unable to determine Use of terms such as suspected, likely, concern for, or probable (associated with a specific diagnosis that is being evaluated, monitored, or treated as if it exists) are acceptable and can be coded in the inpatient setting, when documented at the time of discharge. Thank you, Ratna Kwon [facility], CDIS Extension: [phone] Please use your independent medical judgment in providing your response. THIS QUERY IS PART OF THE PERMANENT MEDICAL RECORD Provider Response: Other Other Diagnosis: unable to determine and not relevant to the current admission
[2021-11-04 15:58] LABS: Glucose, Whole Blood 217 mg/dL (60-115)
[2021-11-04 19:22] LABS: Glucose, Whole Blood 303 mg/dL (60-115)
[2021-11-04] MEDS: Enoxaparin Sodium 40 MG/0.4 ML SYRINGE SUBCUT (21:12)
[2021-11-04] MEDS: Atorvastatin Calcium 80 MG TABLET PO (21:12)
[2021-11-04] MEDS: Montelukast Sodium 10 MG TABLET PO (21:12)
[2021-11-04] MEDS: Sennosides 8.6 MG TABLET 17.2 MG PO (21:45)
[2021-11-05] MEDS: oxyCODONE HCl Immed Release 5 MG TABLET 7.5 MG PO ×3 (01:30→12:01)
[2021-11-05 04:00] VITALS: PULSE 73; RESP 17
[2021-11-05] MEDS: Omeprazole 20 MG CAPSULE.DR PO (06:25)
[2021-11-05 06:40] LABS: Creatinine Clr Calc Pharmacy 73.7; Estimated Glomerular Filt Rate > 60
[2021-11-05] MEDS: Albuterol/Iprat 2.5/0.5MG 3 ML AMPUL.NEB INHALE ×2 (07:26→11:13)
[2021-11-05 07:28] VITALS: PULSE 76; RESP 18; O2SAT 92
[2021-11-05 07:33] VITALS: BP 151/67; PULSE 75; RESP 20; TEMP 36; O2SAT 92
[2021-11-05 08:09] LABS: Glucose, Whole Blood 237 mg/dL (60-115)
[2021-11-05] MEDS: 0.9 % Sodium Chloride Flush 3 ML SYRINGE IVFLUSH (09:07)
[2021-11-05] MEDS: Insulin Lispro 100 UNIT/ML 3 ML VIAL SUBCUT ×2 (09:07→12:00)
[2021-11-05] MEDS: Insulin Glargine,Hum.rec.anlog 100 UNIT/ML 10 ML VIAL 30 UNIT SUBCUT (09:08)
[2021-11-05] MEDS: Cholecalciferol (Vitamin D3) 25 MCG TABLET 50 MCG PO (09:09)
[2021-11-05] MEDS: Gabapentin 300 MG CAPSULE PO (09:10)
[2021-11-05] MEDS: carvediloL 6.25 MG TABLET PO (09:10)
[2021-11-05] MEDS: Fluticasone Propionate Nasal 16 GM SPRAY 2 SPRAY NOSTRIL-B (09:11)
[2021-11-05] MEDS: Nicotine 21 MG PATCH.TD24 TRANSDERMA (09:20)
[2021-11-05 10:57] VITALS: BP 152/71; PULSE 82; RESP 20; TEMP 36.5; O2SAT 92
[2021-11-05 11:15] VITALS: PULSE 71; RESP 18; O2SAT 94
[2021-11-05 11:17] LABS: Glucose, Whole Blood 327 mg/dL (60-115)
--- NOTE | 2021-11-05 11:21 | MHC.CM.PN ---
pt to be dcd home no skilled services ordered by
[2021-11-05] MEDS: methylPREDNISolone Sod Succ 40 MG/ML VIAL IVPUSH (12:00)
--- NOTE | 2021-11-05 14:25 | P.DS_ITS ---
DS: Providers Provider Date of Service: 11/05/21 Date of admission: 11/01/21 23:25 Date of discharge: 11/05/21 Primary care physician: Bobby David MD Consults: 11/02/21 02:51 Consult to Pulmonology Routine Consulting Provider: Fidel White Reason for consultation: rec COPD DS: Diagnosis Discharge Diagnosis (1) COPD exacerbation: Status: Acute (2) Hypoxia: Status: Acute (3) Tobacco abuse: Status: Acute (4) Increased anion gap metabolic acidosis: Status: Acute DS: Summary Hospital Course Hospital Course: from admission H+P by Ramos Sykes, 11/01/21: ?60-year-old female with a past medical history of hypertension, hyperlipidemia, diabetes, CHF EF- 45%, CAD s/p PCI in 2018, COPD -recurrent COPD exacerbation, not on home oxygen, on chronic prednisone,; GERD, radiculopathy, multinodular goiter, MCKAY, pulmonary nodules; presented to the hospital today with a chief complaint of shortness of breath.? Patient reports that over the past couple days she has been having cough and shortness of breath.? Occasional mild sputum production.? Denies any fevers.? Reports he is still smoking.? Denies being on home oxygen.? Denies any chest pain or palpitations.? Denies any nausea vomiting or diarrhea.? Review of all other systems is negative except mentioned above ER course: Per ER team patient noted to have bilateral expiratory wheezing concern for COPD exacerbation.? Given nebulizations and steroids.? Admitted to the hospital for further management. This 60yo F with HTN, HLD, DM2, HF with mildly reduced EF of 45%, CAD s/p PCI (2018), COPD on chronic prednisone, GERD, radiculopathy, MNG, MCKAY, and pulmonary nodules was admitted for COPD exacerbation with acute hypoxic respiartory failure. She [place] [facility] [place] doxycycline, steroids, and bronchodilators. Her symptoms improved and she was weaned off oxygen. Blood cultures grew coagulase-negative staphylococcus, a contaminant. Anion gap metabolic acidosis resolve with IV fluids and improved glycemic control. She was discharged jalen on a steroid taper and will need Primary Care and Pulmonolology follow-ups. Time Spent with Patient Time attestation: Total time spent providing and/or coordinating discharge services: Discharge coordination time: Greater than 30 minutes Quality: Safe Use of Opioids Does Pt have an Active Cancer Diagnosis on the Problem List?: No Quality: Stroke Does the patient have a stroke diagnosis?: No Physical Exam Vital Signs: Vital Signs: Last Vital Signs Temp 97.7 F 11/05/21 10:57 Pulse 71 11/05/21 11:15 Resp 18 11/05/21 11:15 BP 152/71 H 11/05/21 10:57 Pulse Ox 92 11/05/21 10:57 O2 Del Method 11/05/21 10:57 O2 Flow Rate 1 11/04/21 07:33 BMI result Body Mass Index 26.6 Gen: in no acute distress HEENT: sclera anicteric, moist mucus membranes Neck: supple Lungs: good air entry, soft end-exp wheeze R base Heart: regular rate and rhythm, no murmurs Abd: soft, non-tender, non-distended Ext: no edema Skin: warm/well-perfused Neuro: alert and oriented x3, no focal findings Psych: appropriate affect DS: Data Data Completed and Pending Completed studies during hospitalization [Text1]: Laboratory Results WBC 10.6 X10*3/uL (4.8-10.8) 11/02/21 06:45 RBC 5.58 X10*6/uL (4.20-5.50) H 11/02/21 06:45 Hgb 16.3 g/dl (12.0-16.0) H 11/02/21 06:45 Hct 48.4 % (37.0-47.0) H 11/02/21 06:45 MCV 86.7 fL (80.0-98.0) 11/02/21 06:45 MCH 29.2 pg (27.0-33.0) 11/02/21 06:45 MCHC 33.7 g/dl (31.0-35.0) 11/02/21 06:45 RDW 12.6 % (11.0-16.0) 11/02/21 06:45 Plt Count 278 X10*3/uL (160-400) 11/02/21 06:45 MPV 10.1 fL (9.4-12.3) 11/02/21 06:45 Immature Gran % (Auto) 1.0 % (0.0-0.4) H 11/02/21 06:45 Neut % (Auto) 89.5 % (45-73) H 11/02/21 06:45 Lymph % (Auto) 8.3 % (20-40) L 11/02/21 06:45 [place] % (Auto) 0.8 % (2-11) L 11/02/21 06:45 Eos % (Auto) 0.0 % (0-4) 11/02/21 06:45 Baso % (Auto) 0.4 % (0-2) 11/02/21 06:45 Lymph # (Auto) 0.9 X10*3/uL (1.2-4.9) L 11/02/21 06:45 [place] # (Auto) 0.1 X10*3/uL (0.1-1.2) 11/02/21 06:45 Eos # (Auto) 0.0 X10*3/uL (0.0-0.4) 11/02/21 06:45 Baso # (Auto) 0.0 X10*3/uL (0.0-0.2) 11/02/21 06:45 Abs Immat Gran (auto) 0.11 X10*3/uL (0.00-0.03) H 11/02/21 06:45 Absolute Neuts (auto) 9.5 x10*3/uL (2.0-8.3) H 11/02/21 06:45 Absolute Nucleated RBC 0.000 X10*3/uL (0.0-0.012) 11/02/21 06:45 Nucleated RBC % (auto) 0.0 /100WBC (0.0-0.2) 11/02/21 06:45 VBG pH 7.40 (7.32-7.43) 11/01/21 21:29 VBG pCO2 39 mmHg 11/01/21 21: VBG pO2 63 mmHg 11/01/21 21: VBG HCO3 24 mmol/L (22-26) 11/01/21 21:29 VBG O2 Saturation 89.0 % 11/01/21 21:29 VBG Base Excess -0.1 mmol/L 11/01/21 21:29 Sodium 142 mmol/L (135-145) 11/02/21 15:54 Potassium 4.6 mmol/L (3.3-5.1) 11/02/21 15:54 Chloride 105 mmol/L (96-108) 11/02/21 15:54 Carbon Dioxide 25 mmol/L (22-29) 11/02/21 15:54 Anion Gap 17 (12-20) 11/02/21 15:54 BUN 17 mg/dL (9-16) H 11/02/21 15:54 Creatinine 0.80 mg/dL (0.5-1.4) 11/05/21 05:51 Estim Creat Clear Calc 73.7 11/05/21 05:51 Estimated GFR > 60 11/05/21 05:51 POC Glucose 327 mg/dL (60-115) H 11/05/21 10:57 Random Glucose 328 mg/dL (60-115) H 11/02/21 15:54 Lactic Acid 1.2 mmol/L (0.5-2.0) 11/01/21 20:24 Calcium 9.1 mg/dL (8.4-10.2) 11/02/21 15:54 B-Natriuretic Peptide 55 pg/mL (<100) 11/01/21 20:30 Vancomycin Trough 14.2 mcg/mL (10.0-20.0) 11/04/21 05:32 COVID-19 (TIMMY) Negative (Negative) 11/01/21 19:57 COVID-19 Clin Com See Note 11/01/21 19:57 Impressions Chest X-Ray 11/01/21 22:05 IMPRESSION: Unremarkable examination. Venous Duplex 11/05/21 12:38 IMPRESSION: No DVT demonstrated in the right lower extremity. Discharge Plan Discharge Patient Disposition: Home, Self-Care Discharge Diagnosis: COPD exacerbation, tobacco abuse, hypoxia Referrals: Name,MD Bobby [Primary Care Provider] - 11/12/21 1:15 pm (You have appointment scheduled with pcp, call if you need to reschedule.) Fidel White MD [Physician] - 1 Week Discharge Medications: New doxycycline hyclate 100 mg Tablet 100 mg PO Q12H Qty: 5 0RF prednisone 10 mg tablet See Rx Instructions .ROUTE .COMPLEX Qty: 40 0RF Rx Instructions: 40 mg daily x 4 days, then 30 mg daily x 4 days, then 20 mg daily x 4 days, then 10 mg daily x 4 days, then resume prior dose of 5 mg daily Continued budesonide 0.5 mg/2 mL suspension for nebulization 0.5 mg inhalation DAILY Qty: 60 11RF methocarbamol 750 mg tablet 750 mg PO Q8H 30 Days Qty: 90 0RF lidocaine 5 % cream 1 appl topical DAILY Protocol: Apply to: Apply to: BACK,CALF,TOP OF FOOT sennosides [senna] 8.6 mg tablet 2 tab PO DAILY docusate sodium 100 mg capsule 1 cap PO BEDTIME PRN (Reason: Constipation) cholecalciferol (vitamin D3) 50 mcg (2,000 unit) capsule 2,000 mcg PO DAILY Daliresp 500 mcg Tablet 500 mcg PO DAILY Trelegy Ellipta 100-62.5-25 mcg blister with device 1 inh PO DAILY nicotine 21 mg/24 hr Patch 24 Hour 1 patch TRANSDERMAL DAILY insulin lispro [Humalog KwikPen Insulin] 100 unit/mL Insulin Pen 0 unit SUBCUT TID Rx Instructions: 6 TO 10 UNITS BEFORE MEALS, PER PATIENT MAY REQUIRE HIGHER DOSES WHEN ON STEROIDS insulin glargine [Lantus Solostar U-100 Insulin] 100 unit/mL (3 mL) Insulin Pen 25 unit SUBCUT BID Rx Instructions: PER PATIENT, MAY REQUIRE HIGHER DOSES WHEN ON STEROIDS albuterol sulfate [Ventolin HFA] 90 mcg/actuation Hfa Aerosol Inhaler 2 puff INHALATION Q4-6H PRN (Reason: Respiratory Distress) ipratropium-albuterol 0.5 mg-3 mg(2.5 mg base)/3 mL solution for nebulization 3 ml inhalation QID PRN (Reason: Respiratory Distress) Combivent Respimat 20-100 mcg/actuation mist 1 puff inhalation QID Rx Instructions: space evenly during waking hours oxycodone-acetaminophen 7.5-325 mg tablet 1 tab PO Q6H omeprazole 20 mg capsule,delayed release(DR/EC) 20 mg PO BID aspirin 81 mg tablet,delayed release (DR/EC) 81 mg PO DAILY carvedilol 6.25 mg tablet 6.25 mg PO BID atorvastatin 80 mg tablet 80 mg PO BEDTIME montelukast 10 mg tablet 10 mg PO BEDTIME cetirizine 10 mg tablet 10 mg PO DAILY fluticasone propionate 50 mcg/actuation spray,suspension 2 spray intranasal DAILY (DME) lancets [TRUEplus Lancets] 33 gauge misc See Rx Instructions .ROUTE TID Qty: 100 Rx Instructions: As directed (DME) FreeStyle Lite Strips Strip See Rx Instructions .ROUTE TID Qty: 10 Rx Instructions: As directed naloxone 4 mg/actuation spray,non-aerosol 1 spray intranasal ONCE PRN (Reason: Opioid Overdose) gabapentin 300 mg capsule 300 mg PO TID Trulicity 0.75 mg/0.5 mL pen injector 0.75 mg subcut REESE@1000 Discontinued prednisone 5 mg tablet 5 mg PO DAILY Qty: 30 3RF Discharge Orders: Discharge Order (Routine); Ordered 11/05/21 Ordered By: Dawit Regalado Diet: Diabetic diet Activity on Discharge: As tolerated Stand Alone Forms: Patient Portal Discharge page Care Plan Goals: lung health Health Concerns: COPD exacerbation, tobacco abuse, hypoxia Plan of Treatment: prednisone taper: 40 mg daily x 4 days, then 30 mg daily x 4 days, then 20 mg daily x 4 days, then 10 mg daily x 4 days, then resume prior dose of 5 mg daily doxycycline 100 mg twice daily x 5 days see your primary care doctor in 1-2 weeks and your call center assistant in 2 weeks Assessment: See Discharge Summary
== END 2021-11-05 14:35 | disposition home or self-care (01) | DRG 190 ==
LOC: HO.ED 23:26 → HO.EDOVER 23:37 → HO.IMC 11-02 07:52
PROVIDERS: Hospitalist; Admitting Provider Hospitalist; Emergency Provider Student in an Organized Health Care Education/Training Program; PCP Internal Medicine Geriatric Medicine; Visit Provider Family Medicine
DX: J44.1 Chronic obstructive pulmonary disease with (acute) exacerbation (principal); J96.01 Acute respiratory failure with hypoxia; I50.32 Chronic diastolic (congestive) heart failure; E87.2 Acidosis; D75.1 Secondary polycythemia; I11.0 Hypertensive heart disease with heart failure; I25.10 Atherosclerotic heart disease of native coronary artery without angina pectoris; G89.29 Other chronic pain; M54.9 Dorsalgia, unspecified; G47.33 Obstructive sleep apnea (adult) (pediatric); E78.5 Hyperlipidemia, unspecified; Z20.822 Contact with and (suspected) exposure to COVID-19; Z88.5 Allergy status to narcotic agent; Z88.8 Allergy status to other drugs, medicaments and biological substances; Z79.4 Long term (current) use of insulin; Z79.51 Long term (current) use of inhaled steroids; Z79.82 Long term (current) use of aspirin; Z79.899 Other long term (current) drug therapy
CPT/HCPCS: 36415; 71045; 80048; 80202; 82565; 82803; 82947; 83605; 83880; 85025; 87040; 87147; 87205; 87635; 93005; 93971; 94640; 99285; J1650; J2920; J2930; J3370

== ENCOUNTER 2021-12-03 11:56 | Outpatient (REF) | payer MEDICARE, MEDICAID, SELFPAY ==
--- NOTE | ~2021-12-03 | XR_ITS ---
EXAMINATION: XR CHEST CLINICAL INFORMATION: COPD COMPARISON: Previous chest x-ray most recent October 2021 TECHNIQUE: 2 views of the chest were obtained. FINDINGS: The cardiac and mediastinal contours are stable. The lungs are clear. There is no pleural effusion. There are mild degenerative changes of the spine. XR/XR chest 2V IMPRESSION: Unremarkable examination.
[2021-12-03 13:30] LABS: Free T4 (Free Thyroxine) 1.15 ng/dL (0.71-1.85); Thyroid Stimulating Hormone 0.08 uIU/mL (0.32-4.0)
[2021-12-04 14:25] LABS: Triiodothyronine T3 Total 135 ng/dL (76-181)
== END 2021-12-03 11:57 | disposition home or self-care (01) ==
LOC: HO.LAB 11:56
PROVIDERS: Absent Provider Emergency Medicine; PCP Internal Medicine Geriatric Medicine; Visit Provider Internal Medicine
DX: E04.2 Nontoxic multinodular goiter (principal); J44.1 Chronic obstructive pulmonary disease with (acute) exacerbation
CPT/HCPCS: 36415; 71046; 84439; 84443; 84480

== ENCOUNTER 2021-12-16 10:00 | Outpatient (RCR) | payer MEDICARE, MEDICAID, SELFPAY ==
--- NOTE | 2022-01-16 17:00 | MHC.PT.DC ---
[facility] [place] [facility] [place] [facility] [place] [facility] [address] Avril Warner [address] [phone] F: [phone] F: [phone] F: [phone] F: [phone] Physical Therapy Discharge Report Diagnosis: Postlaminectomy syndrome - sx July 2020 (RC + BB) Date of Surgery: July 2020 Date of Evaluation: 12/05/21 Date of Discharge: 01/16/22 Treatments to Date: 3 Cancellations to Date: 3 No Shows to Date: 2 Discharge Status: Visit Non-compliance Discharge Summary: The patient has not followed up with any additional appointments in approximately one month. [place] [facility] [place] she is being discharged from this physical therapy plan of care for visit non-compliance. Her current status is unknown. Electronically signed by: Belle Smith PT, DPT Please sign and return to therapist. Thank you for your referral.
== END 2022-01-16 17:00 | disposition home or self-care (01) ==
LOC: HO.PT 10:00
PROVIDERS: PCP Internal Medicine Geriatric Medicine; Visit Provider Nurse Practitioner Family
DX: M96.1 Postlaminectomy syndrome, not elsewhere classified (principal); M62.830 Muscle spasm of back; M54.16 Radiculopathy, lumbar region; M47.816 Spondylosis without myelopathy or radiculopathy, lumbar region; M53.3 Sacrococcygeal disorders, not elsewhere classified
CPT/HCPCS: 97110; 97112; 97162

== ENCOUNTER → 2021-12-26 10:19 | Outpatient (REF) | payer MEDICARE, MEDICAID, SELFPAY ==
--- NOTE | ~2021-12-26 | NM_ITS ---
EXAMINATION: THYROID UPTAKE AND SCAN CLINICAL INFORMATION: Thyrotoxicosis. COMPARISON: The previous study dated 05/09/2020 is available for comparison. Thyroid ultrasound dated 12/27/2020 is available for comparison. TECHNIQUE: Following the oral administration of 265 microcuries of I-123 sodium iodide, thyroid uptake was performed and expressed as a percentage of the administrated dose. Gamma scintillation camera images of the thyroid in the anterior and right and left anterior oblique views were obtained using a pinhole collimator following the administration of 10 mCi Tc-99m pertechnetate. FINDINGS: The uptake is 16.2% at 4 hours and 38.9% at 24 hours (Normal radioiodine uptake at 24 hours is 10% to 30%). The radioiodine uptake is mildly elevated. The radiopertechnetate thyroid scintigram demonstrates the thyroid gland to be moderately enlarged, proximal 3-4 times normal in size. There is some heterogeneity within the gland with a suggestion of ovoid shaped foci of decreased activity in both lower poles and a small subcentimeter focus of relatively increased activity in the upper pole of the right lobe. The overall trapping function is moderately increased diffusely. A single anterior radioiodine image obtained at the time of the 24-hour uptake is similar to the radio pertechnetate image except the small subcentimeter focus of relatively increased activity in the upper pole of the right lobe is not present. NM/NM thyroid w uptake IMPRESSION: In the clinical setting of thyrotoxicosis, these findings are most consistent with a diffuse toxic goiter of Graves' disease. Superimposed hypofunctioning (cold) nodules in the lower poles bilaterally are suggested. Although it is difficult to correspond to nodules on radionuclide and ultrasound studies because of the difference in these modalities, the largest nodule visualized on the 12/27/2020 ultrasound study appears to correspond with the hypofunctioning (cold) nodule at this site on these radionuclide scan. Although a small subcentimeter functioning (hot) nodule is suggested in the upper pole the right lobe on the radio pertechnetate images, no corresponding hot nodule is present on the radioiodine images and this is also likely a hypofunctioning (cold) nodule.
== END ==
LOC: HO.NUCMED 10:19
PROVIDERS: PCP Internal Medicine Geriatric Medicine; Visit Provider Internal Medicine
DX: E05.90 Thyrotoxicosis, unspecified without thyrotoxic crisis or storm (principal)
CPT/HCPCS: 78014; A9512; A9516

== ENCOUNTER 2021-12-27 11:42 | Outpatient (REF) | payer MEDICARE, MEDICAID, SELFPAY ==
--- NOTE | ~2021-12-27 | XR_ITS ---
EXAMINATION: XR CHEST 2 VIEWS CLINICAL INFORMATION: Pneumonia. COMPARISON: Radiographs dated 12/03/2021. TECHNIQUE: Frontal and lateral views of the chest were obtained. FINDINGS: The heart, great vessels, pulmonary vasculature and mediastinum are normal. The lungs show no focal infiltrate, effusion or pneumothorax. There is no acute osseous abnormality. There is mild lower thoracic spondylosis. XR/XR chest 2V IMPRESSION: No active cardiopulmonary disease.
== END 2021-12-27 11:43 | disposition home or self-care (01) ==
LOC: HO.XRAY 11:42
PROVIDERS: Visit Provider Hospitalist
DX: J18.9 Pneumonia, unspecified organism (principal)
CPT/HCPCS: 71046

== ENCOUNTER 2021-12-30 09:22 | Outpatient (REF) | payer MEDICARE, MEDICAID, SELFPAY ==
--- NOTE | ~2021-12-30 | CT_ITS ---
EXAMINATION: CT CHEST WITHOUT CONTRAST CLINICAL INFORMATION: Other nonspecific abnormal finding of lung field COMPARISON: Previous chest CT most recent December 2020 and chest x-ray most recent November 2021 TECHNIQUE: Multidetector volumetric CT imaging of the chest was done. Axial MIP volume rendering provided. Sagittal and coronal reformatted images were obtained. This CT examination was performed using dose optimization techniques as appropriate, variously including the following: *Automated exposure control *Adjustment of mA and/or kV according to patient size (this includes techniques or standardized protocols for targeted exams where dose is matched to indication/reason for exam; i.e. extremities or head) *Use of iterative reconstruction technique DLP: 159 mGy-cm FINDINGS: LUNGS: The 3 mm peripheral or subpleural right upper lobe nodule axial image 24 series 3 is stable. The 3 mm peripheral or subpleural right upper lobe nodule along the mediastinal surface axial image 20 series 3 is stable. There is linear scarring or subsegmental atelectasis seen in the anterior segment of the right upper lobe that is new. There is linear scarring or subsegmental atelectasis in the right middle lobe and lingula. This appears decreased from previous exam. There is increasing airways disease and bronchial soft tissue opacification throughout the lungs. There are multiple new small nodules probably related to bronchial soft tissue opacification. Largest measures 4 mm in the right lower lobe axial image 199 series 7 and left upper lobe axial image 247 series 7. There is a new 7 mm groundglass opacity at the right lung apex axial image 6 series 3. There is a new groundglass attenuation opacity in the left upper lobe. The irregularly-shaped and difficult to measure on axial imaging. This measures 6 x 2.2 cm in transverse first and longitudinal dimension coronal reconstructed image 48. There is a new 1.7 cm groundglass opacity in the peripheral right lower lobe axial image 33 series 3. There are several smaller peripheral groundglass attenuation areas in the more inferior or subpleural lateral right lower lobe. There is a small peripheral or subpleural groundglass opacity in the anterior basal left lower lobe measuring 0.5 cm axial image 43 series 3. No endobronchial or endotracheal lesion. Previously identified soft tissue adjacent to the anterior wall of the upper trachea is no longer seen. MEDIASTINUM: Enlarged thyroid gland. The mediastinum is otherwise normal. CORONARY ARTERY CALCIFICATION: Mild PLEURA: There is no pleural effusion. No pleural mass or thickening. AXILLA: No lymphadenopathy. UPPER ABDOMEN: Small stone in the upper pole the left kidney. OSSEOUS STRUCTURES: Degenerative changes of the spine. CT/CT chest wo IV con IMPRESSION: Increasing airways disease and new groundglass opacities, largest in the left upper lobe. Multiple new small nodules probably related to bronchial soft tissue opacification. Previously identified small peripheral or subpleural right upper lobe nodules are stable. Previously identified increased soft tissue along the anterior wall of the trachea no longer seen. Enlarged thyroid gland. Fleischner guidelines were followed.
== END 2021-12-30 09:23 | disposition home or self-care (01) ==
LOC: HO.CT 09:22
PROVIDERS: PCP Internal Medicine Geriatric Medicine; Visit Provider Hospitalist
DX: R91.8 Other nonspecific abnormal finding of lung field (principal); J98.09 Other diseases of bronchus, not elsewhere classified
CPT/HCPCS: 71250

== ENCOUNTER 2022-01-15 10:33 | Outpatient (REF) | payer MEDICARE, MEDICAID, SELFPAY ==
--- NOTE | 2022-01-15 15:29 | MHC.AU.HAS ---
Hearing Aid Evaluation Date of Visit: 01/15/22 Historical Information: Description of Hearing: Right: Borderline-normal to moderate sensorineural hearing loss, Left: Mild to moderate sensorineural hearing loss Summary: Patient was seen for audiological evaluation (see separate report for details). Patient is interested in hearing aids. Options were discussed. She would prefer rechargeable batteries. Hearing Aid Prescription: Based on the individual?s shared listening needs, communication environments, dexterity, desire for connectivity, and personal preferences, the following prescription for amplification has been made: Right ear: Bulking Machine Operator: Phonak Model: Audeo P70-R Battery Size: Rechargeable Color: 01 Beige Field Support Engineer: 1M Left ear: Bulking Machine Operator: Phonak Model: Audeo P70-R Battery Size: Rechargeable Color: 01 Beige Field Support Engineer: 1M Action Taken/Action Needed: Medical Clearance to be requested from PCP/ENT Hearing Instrument Fitting to be scheduled when materials arrive Primary Diagnosis: H90.3 Bilateral Sensorineural Hearing Loss Signature: Provider: Alyson Anne, CCC-A
--- NOTE | 2022-01-16 08:01 | MHC.AU.MED ---
Medical Clearance for Hearing Instrumentation Date: 01/16/22 Patient Name: Marita Lawrence Date of : 1960 Referring Provider: Bobby David MD We have seen your patient on 01/15/22 and have determined that they are a candidate for amplification (See accompanying report). Specifically, they would benefit from: Hearing aid use in both ears There is a statute that addresses Medical Evaluation Requirements prior to fitting a patient with a hearing aid. According to [place] statute 265 CMR:6.03(1), (a) General. Except as provided in 265 CMR 6.03(1)(b), a police communications dispatcher shall not sell a hearing aid unless the prospective user has presented to the police communications dispatcher a written statement signed by a licensed physician that states that the patient's hearing loss has been medically evaluated and the patient may be considered a candidate for a hearing aid. The medical evaluation must have taken place within the preceding six months. Please note: Due to the [place] Statute referenced above, we cannot accept a signature other than that of a licensed physician. INDUSTRIAL METHODS CONSULTANT and PA signatures cannot be accepted. I am in agreement with the above recommendation. There is no medical contraindication for hearing instrumentation. Physician Signature Date Physician Name (Printed)
== END 2022-01-15 10:34 | disposition home or self-care (01) ==
LOC: HO.SH 10:33
PROVIDERS: Visit Provider Internal Medicine Geriatric Medicine
DX: Z01.118 Encounter for examination of ears and hearing with other abnormal findings (principal); H90.3 Sensorineural hearing loss, bilateral
CPT/HCPCS: 92557; 92567; 92591

== ENCOUNTER 2022-01-23 12:14 | Outpatient (REF) | payer MEDICARE, MEDICAID, SELFPAY ==
[2022-01-23 13:33] LABS: Free T4 (Free Thyroxine) 1.16 ng/dL (0.71-1.85); Thyroid Stimulating Hormone 0.08 uIU/mL (0.32-4.0)
[2022-01-25 07:03] LABS: Triiodothyronine T3 Total 151 ng/dL (76-181)
[2022-01-25 09:32] LABS: Thyroid Peroxidase Antibodies <1 IU/mL (<9)
[2022-01-27 18:56] LABS: Thyroglobulin Antibodies <1 IU/mL (< or = 1)
[2022-01-28 20:26] LABS: Thyrotropin Receptor Antibody <1.00 IU/L (<=2.00)
== END 2022-01-23 12:15 | disposition home or self-care (01) ==
LOC: HO.LAB 12:14
PROVIDERS: Visit Provider Internal Medicine
DX: E05.90 Thyrotoxicosis, unspecified without thyrotoxic crisis or storm (principal)
CPT/HCPCS: 36415; 83520; 84439; 84443; 84480; 86376; 86800

== ENCOUNTER → 2022-01-24 09:27 | Outpatient (BNVA) | payer MEDICARE, MEDICAID, SELFPAY | PROVIDERS: PCP Internal Medicine Geriatric Medicine; Visit Provider Hospitalist | DX: J98.11 Atelectasis (principal); J44.1 Chronic obstructive pulmonary disease with (acute) exacerbation; G47.33 Obstructive sleep apnea (adult) (pediatric); R91.8 Other nonspecific abnormal finding of lung field; J98.09 Other diseases of bronchus, not elsewhere classified; Z87.891 Personal history of nicotine dependence; Z79.52 Long term (current) use of systemic steroids; Z79.4 Long term (current) use of insulin | CPT/HCPCS: 99212 ==

== ENCOUNTER 2022-02-09 17:34 | Inpatient (IN) | payer MEDICARE, MEDICAID, SELFPAY ==
--- NOTE | ~2022-02-09 | XR_ITS ---
EXAMINATION: XR CHEST CLINICAL INFORMATION: Shortness of breath. COMPARISON: Most recent CT chest dated 12/30/2021. TECHNIQUE: 2 views of the chest were obtained. FINDINGS: Minimal left basilar atelectasis. No pleural effusion or pneumothorax. Stable cardiac mediastinal silhouette. No acute osseous abnormality. XR/XR chest 2V IMPRESSION: Minimal left basilar atelectasis.
[2022-02-09 17:46] VITALS: BP 119/71; PULSE 99; RESP 16; TEMP 36.6; O2SAT 91; O2SAT 96; BMI 26.6
--- NOTE | 2022-02-09 17:46 | ECG_ITS ---
Test Reason : SHORTNESS OF BREATH Blood Pressure : / mmHG Vent. Rate : 095 BPM Atrial Rate : 095 BPM P-R Int : 142 ms QRS Dur : 088 ms QT Int : 354 ms P-R-T Axes : 058 -43 037 degrees QTc Int : 444 ms Normal sinus rhythm Left anterior fascicular block RSR' or QR pattern in V1 suggests right ventricular conduction delay Low voltage QRS Abnormal ECG When compared with ECG of 01-NOV-2021 20:24, No significant changes seen Referred By: Generic ED Physician Electronically Signed By:MEENAKSHI LOTT MD
[2022-02-09 18:23] VITALS: BP 119/71; PULSE 96; RESP 18; TEMP 36.6; O2SAT 95
--- NOTE | 2022-02-09 18:39 | PC.NURSE ---
patient a/ox4 . pearrla . heart rate regular at 95 beats per minute . wheezes noted in upper airway , diminished throughout . patient breathing evenlly unlabored , patient on 2l at 96 % (normally patient not on oxygen ). abdomen soft not tender . positive bowel sounds in all four quadrants . IV placed in right hand . patient placed on manager commercial sales . Dr. Senior at bedside . patient aware of plan of care .
[2022-02-09 18:42] LABS: Influenza A PCR NEGATIVE (Negative); Influenza B PCR NEGATIVE (Negative); Resp Syncy Virus RNA Qual PCR NEGATIVE (Negative); SARS COV2 PCR INHOUSE POSITIVE (Negative)
[2022-02-09 19:32] LABS: MANUAL DIFF FLAG NO
[2022-02-09 19:33] LABS: Basophils Absolute Auto 0.1 X10*3/uL (0.0-0.2); Basophils Percent Auto 0.7 % (0-2); Eosinophils Absolute Auto 0.4 X10*3/uL (0.0-0.4); Eosinophils Percent Auto 3.1 % (0-4); Hematocrit 48.6 % (37.0-47.0); Hemoglobin 16.1 g/dl (12.0-16.0); Imm Gran Abs Auto 0.07 X10*3/uL (0.00-0.03); Imm Gran Pct Auto 0.5 % (0.0-0.4); Lymphocytes Absolute Auto 1.7 X10*3/uL (1.2-4.9); Lymphocytes Percent Auto 12.4 % (20-40); Mean Corpuscular HGB Conc 33.1 g/dl (31.0-35.0); Mean Corpuscular Hemoglobin 29.2 pg (27.0-33.0); Mean Corpuscular Volume 88.2 fL (80.0-98.0); Mean Platelet Volume 10.3 fL (9.4-12.3); Monocytes Absolute Auto 0.4 X10*3/uL (0.1-1.2); Monocytes Percent Auto 2.8 % (2-11); Neutrophils Absolute Auto 11.3 x10*3/uL (2.0-8.3); Neutrophils Percent Auto 80.5 % (45-73); Platelet Count 242 X10*3/uL (160-400); Red Blood Count 5.51 X10*6/uL (4.20-5.50); Red Cell Distribution Width 12.7 % (11.0-16.0); White Blood Count 14.1 X10*3/uL (4.8-10.8)
[2022-02-09 19:54] LABS: Anion Gap 16 (12-20); Blood Urea Nitrogen 12 mg/dL (9-16); Calcium 9.5 mg/dL (8.4-10.2); Carbon Dioxide 28 mmol/L (22-29); Chloride 105 mmol/L (96-108); Creatinine Clr Calc Pharmacy 76.6; Estimated Glomerular Filt Rate > 60; Glucose Random 260 mg/dL (60-115); Sodium 144 mmol/L (135-145)
[2022-02-09 20:02] LABS: Troponin-I High Sensitivity 5.2 ng/L (<3.5-17.0)
[2022-02-09] MEDS: Albuterol/Iprat 2.5/0.5MG 3 ML AMPUL.NEB INHALE (20:13)
[2022-02-09 20:15] VITALS: PULSE 102; RESP 18; O2SAT 94
--- NOTE | 2022-02-09 20:42 | ED.SOB ---
HPI - SOB/Dyspnea General Chief Complaint: Dyspnea Stated Complaint: SOB Time Seen by Provider: 02/09/22 17:53 Related Data Home Medications Medication Instructions Recorded Confirmed aspirin 81 mg tablet,delayed 81 mg PO DAILY 12/24/19 06/23/22 release atorvastatin 80 mg tablet 80 mg PO BEDTIME 12/24/19 06/23/22 carvedilol 6.25 mg tablet 6.25 mg PO BID 12/24/19 06/23/22 cetirizine 10 mg tablet 10 mg PO DAILY 12/24/19 06/23/22 montelukast 10 mg tablet 10 mg PO BEDTIME 12/24/19 06/23/22 omeprazole 20 mg capsule,delayed 20 mg PO BID@0630,1630 12/24/19 06/23/22 release ipratropium 20 mcg-albuterol 100 1 puff inhalation QID 01/02/20 06/23/22 mcg/actuation mist for inhalation (Combivent Respimat) docusate sodium 100 mg capsule 1 cap PO BEDTIME PRN Constipation 01/24/21 06/23/22 lidocaine 5 % topical cream 1 appl topical DAILY 01/24/21 06/23/22 dulaglutide 0.75 mg/0.5 mL 0.75 mg subcut REESE@1000 08/20/21 06/23/22 subcutaneous pen injector (TrulicponUp) blood sugar diagnostic (FreeStyle #10 ea 10/07/21 06/23/22 Lite Strips) gabapentin 300 mg capsule 300 mg PO TID 10/07/21 06/23/22 lancets 33 gauge (TRUEplus Lancets) #100 ea 10/07/21 06/23/22 naloxone 4 mg/actuation nasal spray 1 spray intranasal ONCE PRN Opioid 10/07/21 06/23/22 Overdose cholecalciferol (vitamin D3) 50 2,000 mcg PO DAILY 11/02/21 06/23/22 mcg (2,000 unit) capsule fluticasone fur. 100 mcg-umeclid 1 inh inhalation DAILY 11/02/21 06/23/22 62.5 mcg-vilant 25 mcg inhalat.powder (Trelegy Ellipta) insulin lispro 100 unit/mL 6 - 10 unit subcut TIDAC 11/02/21 06/23/22 subcutaneous pen (Humalog KwikPen (U-100) Insulin) ipratropium 0.5 mg-albuterol 3 mg 3 ml inhalation QID PRN 11/02/21 06/23/22 (2.5 mg base)/3 mL nebulization Respiratory Distress soln oxycodone-acetaminophen 7.5 mg-325 1 tab PO Q6H PRN severe pain 06/23/22 06/23/22 mg tablet roflumilast 500 mcg tablet 500 mcg PO DAILY 07/16/22 07/16/22 fluticasone propionate 50 2 spray intranasal DAILY PRN 07/25/22 mcg/actuation nasal spray,suspension prednisone 10 mg tablet 0 mg PO 07/25/22 Previous Rx's Medication Instructions Recorded insulin glargine 100 unit/mL (3 30 unit (0.3 mL) subcut BID #15 mL 02/12/22 mL) subcutaneous pen (Lantus Solostar U-100 Insulin) methocarbamol 750 mg tablet 750 mg PO Q8H PRN for muscle spasm 05/05/22 30 days #60 tabs methimazole 5 mg tablet 10 mg PO DAILY 30 days #60 tabs 06/23/22 Ventolin HFA 90 mcg/actuation 2 puff PO Q4-6H PRN for wheezing 07/16/22 aerosol inhaler (albuterol sulfate) #18 grams Allergies Allergy/AdvReac Type Severity Reaction Status Date / Time HANK Inhibitors Allergy Severe ANGIO Verified 07/25/22 09:46 [HANK INHIBITORS] EDEMA enalapril Allergy Severe Anaphylaxis Verified 07/25/22 09:46 erythromycin base Allergy 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 09:46 [ERYTHROMYCIN BASE] OVER hydromorphone [From DILAUDID] AdvReac Severe TINGLING, Verified 07/25/22 09:46 PT DOES NOT LIKE THE FEELING MED GIVES HER PMFSH Past Medical History Medical History (Updated 07/11/22 @ 16:24 by Felipa Chacon RN) Atelectasis COPD (chronic obstructive pulmonary disease) COPD exacerbation Diabetes Goiter Hyperthyroidism Hypoxia Irritable bowel syndrome Lesion of bronchus Multinodular goiter MCKAY (obstructive sleep apnea) Pneumonia Polycythemia Pulmonary nodules Smoker Subclinical hyperthyroidism Tracheal anomaly Vitamin D deficiency Surgical History (Updated 07/24/22 @ 14:26 by Yogi Lemons) History of back surgery History of cholecystectomy History of esophagogastroduodenoscopy (EGD) History of tonsillectomy History of ureterostomy Hx of colonoscopy S/P lumpectomy, right breast Family History Family History Father No problems noted. Mother No problems noted. Paternal Aunt Diabetes Social History Social History Household Members: Significant Other Housing: House Do you presently have visiting nurse or other home services: No Alcohol intake: former Patient Tobacco Use Status: Current everyday Tobacco user Tobacco use type: Cigarette Cigarette Packs Per Day: 0.5 Cigarettes Per Day: 10.0 e-Cigarette/Vaping Use: Never Used Second Hand Smoke Exposure: Yes Substance Use Type: Marijuana Advance Directives Date on File: 01/24/21 service: No Current occupational status: disabled Physical Exam Vital Signs: Vital Signs: Last Vital Signs Temp 97.1 F 02/12/22 11:27 Pulse 88 02/12/22 12:10 Resp 20 02/12/22 12:10 BP 123/66 02/12/22 11:27 Pulse Ox 95 02/12/22 11:27 O2 Del Method Room Air 02/12/22 11:27 O2 Flow Rate 2 02/11/22 11:25 FiO2 95 02/10/22 20:00 Oxygen Flow Rate 2 02/09/22 17:46 BMI result Body Mass Index 26.6 Medications Administered Discontinued Medications Generic Name Dose Route Start Last Admin Trade Name Freq PRN Reason Stop Dose Admin Albuterol/Ipratropium 3 ml 02/09/22 18:57 02/09/22 20:13 Albuterol/Iprat 2.5/0.5mg 3 Ml Ampul.Neb INHALE 02/09/22 18:58 3 ml ONCE ONE Administration Albuterol/Ipratropium 3 ml 02/09/22 22:42 02/10/22 23:52 Albuterol/Iprat 2.5/0.5mg 3 Ml Ampul.Neb INHALE 3 ml RQ4H PRN Administration wheezing Albuterol/Ipratropium 3 ml 02/10/22 08:00 02/12/22 12:10 Albuterol/Iprat 2.5/0.5mg 3 Ml Ampul.Neb INHALE 3 ml RQ4H WHILE AWAKE SOM Administration Aspirin 81 mg 02/10/22 09:00 02/10/22 11:35 Aspirin Enteric Coated 81 Mg Tablet. PO Not Given DAILY SOM Aspirin 81 mg 02/10/22 21:00 02/11/22 20:08 Aspirin Enteric Coated 81 Mg Tablet. PO 81 mg BEDTIME SOM Administration Atorvastatin Calcium 80 mg 02/10/22 03:49 02/10/22 04:15 Atorvastatin Calcium 80 Mg Tablet PO 02/10/22 03:50 80 mg ONCE ONE Administration Atorvastatin Calcium 80 mg 02/10/22 21:00 02/11/22 20:08 Atorvastatin Calcium 80 Mg Tablet PO 80 mg BEDTIME SOM Administration Protocol Carvedilol 6.25 mg 02/10/22 09:00 02/12/22 07:54 Carvedilol 6.25 Mg Tablet PO 6.25 mg BID SOM Administration Protocol Cyclobenzaprine HCl 10 mg 02/10/22 04:00 02/10/22 04:15 Cyclobenzaprine Hcl 10 Mg Tablet PO 02/10/22 04:01 10 mg ONCE ONE Administration Dexamethasone 6 mg 02/10/22 09:00 02/12/22 07:54 Dexamethasone 6 Mg Tablet PO 6 mg DAILY SOM Administration Enoxaparin Sodium 40 mg 02/09/22 22:45 02/11/22 20:17 Enoxaparin Sodium 40 Mg/0.4 Ml Syringe SUBCUT 40 mg Q24H SOM Administration Fluticasone Propionate 2 spray 02/10/22 09:00 02/12/22 08:00 Fluticasone Propionate Nasal 16 Gm Inman NOSTRIL-B 2 spray DAILY SOM Administration Gabapentin 300 mg 02/10/22 03:47 02/10/22 04:15 Gabapentin 300 Mg Capsule PO 02/10/22 03:48 300 mg ONCE ONE Administration Gabapentin 300 mg 02/10/22 09:00 02/12/22 07:54 Gabapentin 300 Mg Capsule PO 300 mg TID SOM Administration Methylprednisolone Sodium 52 mls @ 66 mls/hr 02/09/22 18:57 02/10/22 00:16 Succinate 125 mg/ Sodium IV 02/09/22 19:43 Not Given Chloride ONCE ONE Methylprednisolone Sodium 52 mls @ 66 mls/hr 02/09/22 19:15 02/09/22 20:50 Succinate 125 mg/ Sodium IV 02/09/22 20:02 Infused Chloride ONCE ONE Infusion Ceftriaxone Sodium 1 gm/ 50 mls @ 100 mls/hr 02/09/22 20:57 02/09/22 23:39 Sodium Chloride IV 02/09/22 21:26 Infused ONCE ONE Infusion Insulin Glargine 25 unit 02/09/22 23:10 02/10/22 20:38 Insulin Glargine,Hum.Rec.Anlog 100 Unit/Ml 10 Ml Vial SUBCUT 25 unit BEDTIME SOM Administration Insulin Glargine 30 unit 02/11/22 21:00 02/11/22 20:09 Insulin Glargine,Hum.Rec.Anlog 100 Unit/Ml 10 Ml Vial SUBCUT 30 unit BEDTIME SOM Administration Insulin Human Lispro 0 unit 02/10/22 07:30 02/12/22 08:00 Insulin Lispro 100 Unit/Ml 3 Ml Vial SUBCUT 10 unit QIDACHS [facility] Administration Protocol Insulin Human Lispro 4 unit 02/11/22 16:37 02/11/22 17:18 Insulin Lispro 100 Unit/Ml 3 Ml Vial SUBCUT 02/11/22 16:38 4 unit ONCE ONE Administration Insulin Human Lispro 3 unit 02/12/22 11:30 02/12/22 13:06 Insulin Lispro 100 Unit/Ml 3 Ml Vial SUBCUT 3 unit QIDACHS [facility] Administration Insulin Human Lispro 10 unit 02/12/22 12:35 02/12/22 13:06 Insulin Lispro 100 Unit/Ml 3 Ml Vial SUBCUT 02/12/22 12:36 10 unit ONCE ONE Administration Insulin Human Regular 10 unit 02/10/22 06:33 02/10/22 06:53 Insulin Regular, Human 100 Unit/Ml 3 Ml Vial IVPUSH 02/10/22 06:34 10 unit ONCE ONE Administration Loratadine 10 mg 02/10/22 09:00 02/12/22 07:54 Loratadine 10 Mg Tablet PO 10 mg DAILY SOM Administration Methimazole 5 mg 02/10/22 09:00 02/12/22 07:54 Methimazole 5 Mg Tablet PO 5 mg DAILY SOM Administration Montelukast Sodium 10 mg 02/10/22 21:00 02/11/22 20:09 Montelukast Sodium 10 Mg Tablet PO 10 mg BEDTIME SOM Administration Nicotine 14 mg 02/10/22 09:00 02/12/22 07:54 Nicotine 14 Mg Patch.Td24 TRANSDERMA 14 mg DAILY SOM Administration Non-Formulary Medication 0.5 mg 02/10/22 09:00 02/10/22 09:53 Budesonide INHALE Not Given DAILY SOM Non-Formulary Medication 500 mcg 02/10/22 09:00 02/10/22 09:53 Roflumilast [Daliresp] PO Not Given DAILY SOM Pt Own (Roflumilast 500 mcg 02/10/22 20:15 02/12/22 07:56 [Daliresp] 500 Mcg PO 500 mcg Tablet) DAILY SOM Administration Pt Own (Budesonide 0 0.5 mg 02/11/22 08:00 02/12/22 08:28 .5 Mg/2 Ml INHALE 0.5 mg Suspension For RDAILY SOM Administration Nebulization) Pt Own ( 750 mg 02/10/22 20:10 02/12/22 07:56 Methocarbamol 750 Mg PO 750 mg Tablet) Q8H PRN Administration Muscle Spasm Pt Own (Fluticasone- 1 inhalation 02/11/22 08:00 02/12/22 08:28 Umeclidin-Vilanter [ INHALE 1 inhalation Trelegy Ellipta] 100 RDAILY SOM Administration -62.5-25 Mcg Omeprazole 20 mg 02/10/22 16:30 02/12/22 05:44 Omeprazole 20 Mg Capsule. PO 20 mg BID@5530,1990 SOM Administration Oxycodone HCl 10 mg 02/10/22 03:43 02/10/22 04:08 Oxycodone Hcl Immed Release 5 Mg Tablet PO 02/10/22 03:44 10 mg ONCE ONE Administration Oxycodone HCl 7.5 mg 02/10/22 09:43 02/12/22 09:01 Oxycodone Hcl Immed Release 5 Mg Tablet PO 7.5 mg Q6H PRN Administration Pain (Scale Score 4-6) Sodium Chloride 3 ml 02/10/22 00:00 02/12/22 08:00 0.9 % Sodium Chloride Flush 3 Ml Syringe IVFLUSH 3 ml QSHIFT SOM Administration Vitamin D 2,000 mcg 02/10/22 09:00 02/10/22 11:35 Cholecalciferol (Vitamin D3) 25 Mcg Tablet PO Not Given DAILY SOM Vitamin D 50 mcg 02/10/22 10:15 02/12/22 07:53 Cholecalciferol (Vitamin D3) 25 Mcg Tablet PO 50 mcg DAILY SOM Administration MDM - SOB/Dyspnea Lab Data 02/10/22 05:39 02/10/22 05:39 Labs: Lab Results 02/09/22 02/09/22 02/09/22 Range/Units 17:55 19:26 19:26 WBC 14.1 H (4.8-10.8) X10*3/uL RBC 5.51 H (4.20-5.50) X10*6/uL Hgb 16.1 H (12.0-16.0) g/dl Hct 48.6 H (37.0-47.0) % MCV 88.2 (80.0-98.0) fL MCH 29.2 (27.0-33.0) pg MCHC 33.1 (31.0-35.0) g/dl RDW 12.7 (11.0-16.0) % Plt Count 242 (160-400) X10*3/uL MPV 10.3 (9.4-12.3) fL Immature Gran % (Auto) 0.5 H (0.0-0.4) % Neut % (Auto) 80.5 H (45-73) % Lymph % (Auto) 12.4 L (20-40) % Russell % (Auto) 2.8 (2-11) % Eos % (Auto) 3.1 (0-4) % Baso % (Auto) 0.7 (0-2) % Lymph # (Auto) 1.7 (1.2-4.9) X10*3/uL Russell # (Auto) 0.4 (0.1-1.2) X10*3/uL Eos # (Auto) 0.4 (0.0-0.4) X10*3/uL Baso # (Auto) 0.1 (0.0-0.2) X10*3/uL Abs Immat Gran (auto) 0.07 H (0.00-0.03) X10*3/uL Absolute Neuts (auto) 11.3 H (2.0-8.3) x10*3/uL Absolute Nucleated RBC 0.000 (0.0-0.012) X10*3/uL Nucleated RBC % (auto) 0.0 (0.0-0.2) /100WBC Sodium 144 (135-145) mmol/L Potassium 5.0 (3.3-5.1) mmol/L Chloride 105 (96-108) mmol/L Carbon Dioxide 28 (22-29) mmol/L Anion Gap 16 (12-20) BUN 12 (9-16) mg/dL Creatinine 0.76 (0.5-1.4) mg/dL Estim Creat Clear Calc 76.6 Estimated GFR > 60 Random Glucose 260 H (60-115) mg/dL Calcium 9.5 (8.4-10.2) mg/dL Troponin I High Sens (<3.5-17.0) ng/L COVID-19 (TIMMY) (Negative) COVID-19 Clin Com Influenza Type A (PCR) NEGATIVE (Negative) Influenza Type B (PCR) NEGATIVE (Negative) RSV RNA Qual (PCR) NEGATIVE (Negative) SARS-CoV-2 RNA (RT-PCR) POSITIVE A (Negative) 02/09/22 02/09/22 Range/Units 19:26 21:42 WBC (4.8-10.8) X10*3/uL RBC (4.20-5.50) X10*6/uL Hgb (12.0-16.0) g/dl Hct (37.0-47.0) % MCV (80.0-98.0) fL MCH (27.0-33.0) pg MCHC (31.0-35.0) g/dl RDW (11.0-16.0) % Plt Count (160-400) X10*3/uL MPV (9.4-12.3) fL Immature Gran % (Auto) (0.0-0.4) % Neut % (Auto) (45-73) % Lymph % (Auto) (20-40) % Russell % (Auto) (2-11) % Eos % (Auto) (0-4) % Baso % (Auto) (0-2) % Lymph # (Auto) (1.2-4.9) X10*3/uL Russell # (Auto) (0.1-1.2) X10*3/uL Eos # (Auto) (0.0-0.4) X10*3/uL Baso # (Auto) (0.0-0.2) X10*3/uL Abs Immat Gran (auto) (0.00-0.03) X10*3/uL Absolute Neuts (auto) (2.0-8.3) x10*3/uL Absolute Nucleated RBC (0.0-0.012) X10*3/uL Nucleated RBC % (auto) (0.0-0.2) /100WBC Sodium (135-145) mmol/L Potassium (3.3-5.1) mmol/L Chloride (96-108) mmol/L Carbon Dioxide (22-29) mmol/L Anion Gap (12-20) BUN (9-16) mg/dL Creatinine (0.5-1.4) mg/dL Estim Creat Clear Calc Estimated GFR Random Glucose (60-115) mg/dL Calcium (8.4-10.2) mg/dL Troponin I High Sens 5.2 (<3.5-17.0) ng/L COVID-19 (TIMMY) Negative (Negative) COVID-19 Clin Com See Note Influenza Type A (PCR) (Negative) Influenza Type B (PCR) (Negative) RSV RNA Qual (PCR) (Negative) SARS-CoV-2 RNA (RT-PCR) (Negative) Discharge Plan Discharge Clinical Impression: COVID-19 Patient Disposition: Admitted As Inpatient Interventions: Admission Worksheet (ED) Last Done: 02/10/22 17:54 Discharge Date/Time: 02/10/22 18:04
[2022-02-09 21:45] VITALS: BP 159/63; PULSE 94; RESP 19; TEMP 37; O2SAT 94
[2022-02-09 22:03] LABS: COVID-19 Test Negative (Negative); IDNOW Serial# 08D9AD1C
--- NOTE | 2022-02-09 22:36 | PC.NURSE ---
Pt soul medrol has not been given d/t the pump keeps stopping.
--- NOTE | 2022-02-09 22:47 | PC.NURSE ---
Pt refused a second IV line, this nurse will wait until rain horn finishes to continue with the abx .
--- NOTE | 2022-02-09 22:51 | P.HPHOSP_ITS ---
History of Present Illness Date of Service: 02/09/22 Chief Complaint: Dyspnea This is a 60-year-old female with pertinent history of insulin-dependent diabetes mellitus, essential hypertension, hyperlipidemia, COPD not on home oxygen, on chronic prednisone, chronic back pain, hyperthyroidism, CAD status post stent, obstructive sleep apnea not on CPAP, gastroesophageal reflux disease who presents to the emergency department for evaluation of dyspnea. Patient states she has been getting short of breath for the last 3 days, worse with exertion. Patient also noticed associated wheezing. Her home inhaler did not help with it. On the day of presentation, patient had difficulty ambulating in the house and getting up from the bed. Upon EMS arrival, she was satting 84% on room air. Patient denies any fever chills, nausea, vomiting. Denies any sick contacts. No chest discomfort, cough, palpitations. Patient denies abdominal discomfort, changes in urinary or bowel habits. In the emergency department, patient was found to be positive for COVID-19 and requiring 2 L supplemental oxygen. Review of Systems Constitutional: Constitutional: Reports no additional constitutional complaints Cardiovascular: Cardiovascular: Reports dyspnea Respiratory: Respiratory: Reports dyspnea and Reports wheezing Gastrointestinal: Gastrointestinal: Reports no additional gastrointestinal complaints Genitourinary: Genitourinary: Reports no additional female genitourinary complaints Allergic/Immunologic: Allergic/Immunologic: Reports wheezing [facility] Medical History (Updated 02/09/22 @ 23:08 by Cabrera Patel MD) Atelectasis COPD (chronic obstructive pulmonary disease) COPD exacerbation Goiter Hypoxia Lesion of bronchus Multinodular goiter Pneumonia Polycythemia Pulmonary nodules Smoker Subclinical hyperthyroidism Tracheal anomaly Vitamin D deficiency Family History Father No problems noted. Mother No problems noted. Paternal Aunt Diabetes Surgical History History of back surgery History of cholecystectomy History of tonsillectomy History of ureterostomy S/P lumpectomy, right breast Social History Household Members: Spouse Housing: House Do you presently have visiting nurse or other home services: No Alcohol intake: former Patient Tobacco Use Status: Former Tobacco user Tobacco use type: Cigarette Cigarette Packs Per Day: 0.5 Cigarettes Per Day: 10.0 Smoked in Last 30 Days: Yes e-Cigarette/Vaping Use: Never Used Second Hand Smoke Exposure: Yes Substance Use Type: Marijuana Advance Directives: Yes Advance Directives on File: Yes Advance Directives Date on File: 01/24/21 service: No Current occupational status: retired Meds Allergies Allergy/AdvReac Type Severity Reaction Status Date / Time HANK Inhibitors Allergy Severe ANGIO Verified 01/24/22 09:58 [HANK INHIBITORS] EDEMA enalapril Allergy Severe Anaphylaxis Verified 01/24/22 09:58 erythromycin base Allergy Severe HIVES ALL Verified 01/24/22 09:58 [ERYTHROMYCIN BASE] OVER hydromorphone [From DILAUDID] AdvReac Severe TINGLING, Verified 01/24/22 09:58 PT DOES NOT LIKE THE FEELING MED GIVES HER Active Medications: Current Medications Acetaminophen (Acetaminophen 325 Mg Tablet) 650 mg PO Q6H PRN PRN Reason: Pain, Mild (Pain Scale 1-3) Albuterol/Ipratropium (Albuterol/Iprat 2.5/0.5mg 3 Ml Ampul.Neb) 3 ml INHALE RQ4H PRN PRN Reason: wheezing Albuterol/Ipratropium (Albuterol/Iprat 2.5/0.5mg 3 Ml Ampul.Neb) 3 ml INHALE RQ4H WHILE AWAKE [facility] Benzonatate (Benzonatate 100 Mg Capsule) 200 mg PO TID PRN PRN Reason: cough Dexamethasone (Dexamethasone 6 Mg Tablet) 6 mg PO DAILY [facility] Dextrose (Dextrose 50 % 25 Gm/50 Ml Syringe) 25 gm IVPUSH Q15M PRN; Protocol PRN Reason: per Hypoglycemia Standing Ord. Enoxaparin Sodium (Enoxaparin Sodium 40 Mg/0.4 Ml Syringe) 40 mg SUBCUT Q24H [facility] Glucose (Glucose Gel 15 Gm Gel..Gram.) 15 gm PO Q15M PRN; Protocol PRN Reason: per Hypoglycemia Standing Ord. Insulin Human Lispro (Insulin Lispro 100 Unit/Ml 3 Ml Vial) 0 unit SUBCUT QIDACHS [facility]; Protocol Melatonin (Melatonin 3 Mg Tablet) 6 mg PO BEDTIME PRN PRN Reason: Insomnia Ondansetron HCl (Ondansetron Hcl 4 Mg/2 Ml Vial) 4 mg IVPUSH Q8H PRN PRN Reason: Nausea and Vomiting Pharmacy Consult (Consult Rx Perform Med Rec) 1 each MISCELLANE ONCE PRN PRN Reason: Consult order Sodium Chloride (0.9 % Sodium Chloride Flush 3 Ml Syringe) [facility] Medications Medication Instructions Recorded Confirmed Last Taken Type aspirin 81 mg tablet,delayed 81 mg PO DAILY 12/24/19 01/24/22 01/23/21 09:30 History release atorvastatin 80 mg tablet 80 mg PO BEDTIME 12/24/19 01/24/22 01/23/21 09:30 History carvedilol 6.25 mg tablet 6.25 mg PO BID 12/24/19 01/24/22 01/23/21 09:30 History cetirizine 10 mg tablet 10 mg PO DAILY 12/24/19 01/24/22 01/23/21 09:30 History montelukast 10 mg tablet 10 mg PO BEDTIME 12/24/19 01/24/22 01/23/21 09:30 History omeprazole 20 mg capsule,delayed 20 mg PO BID 12/24/19 01/24/22 01/23/21 09:30 History release oxycodone-acetaminophen 7.5 mg-325 1 tab PO Q6H 12/24/19 01/24/22 01/23/21 09:30 History mg tablet ipratropium 20 mcg-albuterol 100 1 puff inhalation QID 01/02/20 01/24/22 01/23/21 09:30 History mcg/actuation mist for inhalation (Combivent Respimat) docusate sodium 100 mg capsule 1 cap PO BEDTIME PRN Constipation 01/24/21 01/24/22 Unknown History lidocaine 5 % topical cream 1 appl topical DAILY 01/24/21 01/24/22 Unknown Histo ry sennosides 8.6 mg tablet (senna) 2 tab PO DAILY 01/24/21 01/24/22 Unknown History fluticasone propionate 50 2 spray intranasal DAILY 02/19/21 01/24/22 Unknown History mcg/actuation nasal spray,suspension dulaglutide 0.75 mg/0.5 mL 0.75 mg subcut REESE@1000 08/20/21 01/24/22 10/27/21 History subcutaneous pen injector (Trulicity) blood sugar diagnostic (FreeStyle #10 ea 10/07/21 01/24/22 Unknown History Lite Strips) gabapentin 300 mg capsule 300 mg PO TID 10/07/21 01/24/22 Unknown History lancets 33 gauge (TRUEplus Lancets) #100 ea 10/07/21 01/24/22 Unknown History naloxone 4 mg/actuation nasal spray 1 spray intranasal ONCE PRN Opioid 10/07/21 01/24/22 Unknown History Overdose albuterol sulfate 90 mcg/actuation 2 puff inhalation Q4-6H PRN 11/02/21 01/24/22 Unknown History aerosol inhaler (Ventolin HFA) Respiratory Distress cholecalciferol (vitamin D3) 50 2,000 mcg PO DAILY 11/02/21 01/24/22 Unknown History mcg (2,000 unit) capsule fluticasone fur. 100 mcg-umeclid 1 inh PO DAILY 11/02/21 01/24/22 Unknown History 62.5 mcg-vilant 25 mcg inhalat.powder (Trelegy Ellipta) insulin glargine 100 unit/mL (3 25 unit subcut BID 11/02/21 01/24/22 Unknown History mL) subcutaneous pen (Lantus Solostar U-100 Insulin) insulin lispro 100 unit/mL 0 unit subcut TID 11/02/21 01/24/22 Unknown History subcutaneous pen (Humalog KwikPen (U-100) Insulin) ipratropium 0.5 mg-albuterol 3 mg 3 ml inhalation QID PRN 11/02/21 01/24/22 Unknown History (2.5 mg base)/3 mL nebulization Respiratory Distress soln nicotine 21 mg/24 hr daily 1 patch transdermal DAILY 11/02/21 01/24/22 Unknown History transdermal patch roflumilast 500 mcg tablet 500 mcg PO DAILY 11/02/21 01/24/22 Unknown History (Daliresp) Physical Exam Vital Signs and Narrative: Vital Signs: Last Vital Signs Temp 98.6 F 02/09/22 21:45 Pulse 94 02/09/22 21:45 Resp 19 02/09/22 21:45 BP 159/63 H 02/09/22 21:45 Pulse Ox 94 02/09/22 21:45 O2 Del Method 02/09/22 21:45 O2 Flow Rate 2 02/09/22 21:45 Oxygen Flow Rate 2 02/09/22 17:46 BMI result Body Mass Index 26.6 Elderly female lying in bed in mild distress on 2L O2 Neck supple, no JVD Regular rate and rhythm, S1-S2 heard B/l expiratory wheezing Abdomen soft nontender, no guarding, no rigidity Patient is awake, alert and oriented to self, place, time and person ; no focal motor deficit Psych: Normal mood No pedal edema Results Labs CBC and Chem 7: 02/09/22 19:26 02/09/22 19:26 Labs: Laboratory Results - last 24 hr 02/09/22 02/09/22 02/09/22 17:55 19:26 19:26 MCV 88.2 MCH 29.2 MCHC 33.1 RDW 12.7 Plt Count 242 MPV 10.3 Immature Gran % (Auto) 0.5 H Neut % (Auto) 80.5 H Lymph % (Auto) 12.4 L [place] % (Auto) 2.8 Eos % (Auto) 3.1 Baso % (Auto) 0.7 Lymph # (Auto) 1.7 [place] # (Auto) 0.4 Eos # (Auto) 0.4 Baso # (Auto) 0.1 Abs Immat Gran (auto) 0.07 H Absolute Neuts (auto) 11.3 H Absolute Nucleated RBC 0.000 Nucleated RBC % (auto) 0.0 Anion Gap 16 Estim Creat Clear Calc 76.6 Estimated GFR > 60 Random Glucose 260 H Calcium 9.5 Troponin I High Sens COVID-19 (TIMMY) COVID-19 Clin Com Influenza Type A (PCR) NEGATIVE Influenza Type B (PCR) NEGATIVE RSV RNA Qual (PCR) NEGATIVE SARS-CoV-2 RNA (RT-PCR) POSITIVE A 02/09/22 02/09/22 19:26 21:42 MCV MCH MCHC RDW Plt Count MPV Immature Gran % (Auto) Neut % (Auto) Lymph % (Auto) [place] % (Auto) Eos % (Auto) Baso % (Auto) Lymph # (Auto) [place] # (Auto) Eos # (Auto) Baso # (Auto) Abs Immat Gran (auto) Absolute Neuts (auto) Absolute Nucleated RBC Nucleated RBC % (auto) Anion Gap Estim Creat Clear Calc Estimated GFR Random Glucose Calcium Troponin I High Sens 5.2 COVID-19 (TIMMY) Negative COVID-19 Clin Com See Note Influenza Type A (PCR) Influenza Type B (PCR) RSV RNA Qual (PCR) SARS-CoV-2 RNA (RT-PCR) Imaging Radiologist's Impressions: Impressions Chest X-Ray 02/09/22 19:05 IMPRESSION: Minimal left basilar atelectasis. Assessment and Plan (1) Hypoxia: Status: Acute (2) COVID-19: Status: Acute (3) Subclinical hyperthyroidism: Status: Acute (4) COPD exacerbation: Status: Acute (5) Smoker: Status: Acute Plan This is a 60-year-old female with pertinent history of insulin-dependent diabetes mellitus, essential hypertension, hyperlipidemia, COPD not on home o xygen, on chronic prednisone, chronic back pain, hyperthyroidism, CAD status post stent, obstructive sleep apnea not on CPAP, gastroesophageal reflux disease who presents to the emergency department for evaluation of dyspnea. #. Acute hypoxemic respiratory failure secondary to: #. COVID-19 infection - Will admit patient with supplemental oxygen. Maintain oxygen saturation greater than 90%, wean as tolerated. Currently requiring 2 L supplemental oxygen. Initiating Decadron. Consulting ID for possible remdesivir treatment. COVID-19 isolation precautions. #. Acute excaerbation of COPD due to above - Steroids as above. Scheduled and p.r.n. DuoNebs. No concern for bacterial superinfection, defer antibiotics. Continue home inhalers #. Insulin-dependent diabetes mellitus with hyperglycemia - continue home basal regimen. Initiate Accu-Cheks with sliding scale insulin. #. CAD s/p stent - Continue aspirin and high-intensity statin #. HTN - continue home p.o. antihypertensives #. Chronic back pain -continue po home medications #. Reactive leukocytosis #. Tobacco use disorder -will order nicotine patch. Counseled against use #. Chronic secondary poylcythemia -likely due to MCKAY not on CPAP Med rec pending DVT prophylaxis: Lovenox 40mg daily Full code Diabetic diet Admit as inpatient and will require two night minimum hospital stay for need for supplemental oxygen Quality Stroke Does the patient have a stroke diagnosis?: No VTE Prior VTE?: No VTE Risk Level:: Medical - moderate - high VTE Device Contraindication: Treatment Not Indicated VTE Drug Contraindication: N/A - Med Ordered
[2022-02-09 23:09] LABS: Lactic Acid 1.6 mmol/L (0.5-2.0)
[2022-02-09] MEDS: cefTRIAXone sodium 1 GM in 0.9 % Sodium Chloride 50 ML IV (23:09)
[2022-02-10] VITALS (9 sets, daily range): BP systolic 119–138; BP diastolic 66–75; PULSE 93–115; RESP 15–19; TEMP 36.5–37.1; O2SAT 93–95; BMI 26.6
[2022-02-10] MEDS: Enoxaparin Sodium 40 MG/0.4 ML SYRINGE SUBCUT ×2 (00:28→22:17)
[2022-02-10] MEDS: Insulin Glargine,Hum.rec.anlog 100 UNIT/ML 10 ML VIAL 25 UNIT SUBCUT ×2 (00:29→20:38)
[2022-02-10 00:38] LABS: Glucose, Whole Blood 288 mg/dL (60-115)
[2022-02-10] MEDS: 0.9 % Sodium Chloride Flush 3 ML SYRINGE IVFLUSH ×4 (01:32→22:18)
[2022-02-10] MEDS: oxyCODONE HCl Immed Release 5 MG TABLET 10 MG PO (04:08)
[2022-02-10] MEDS: Atorvastatin Calcium 80 MG TABLET PO ×2 (04:15→20:38)
[2022-02-10] MEDS: Gabapentin 300 MG CAPSULE PO ×4 (04:15→20:37)
[2022-02-10] MEDS: Cyclobenzaprine HCl 10 MG TABLET PO (04:15)
[2022-02-10] MEDS: Albuterol/Iprat 2.5/0.5MG 3 ML AMPUL.NEB INHALE ×5 (04:27→23:52)
[2022-02-10 06:02] LABS: MANUAL DIFF FLAG NO
[2022-02-10 06:04] LABS: Basophils Percent Auto 0.3 % (0-2); Hematocrit 49.1 % (37.0-47.0); Hemoglobin 16.3 g/dl (12.0-16.0); Imm Gran Abs Auto 0.03 X10*3/uL (0.00-0.03); Imm Gran Pct Auto 0.2 % (0.0-0.4); Lymphocytes Absolute Auto 1.3 X10*3/uL (1.2-4.9); Lymphocytes Percent Auto 10.9 % (20-40); Mean Corpuscular HGB Conc 33.2 g/dl (31.0-35.0); Mean Corpuscular Volume 87.4 fL (80.0-98.0); Mean Platelet Volume 10.6 fL (9.4-12.3); Monocytes Absolute Auto 0.1 X10*3/uL (0.1-1.2); Monocytes Percent Auto 0.6 % (2-11); Neutrophils Absolute Auto 10.7 x10*3/uL (2.0-8.3); Platelet Count 252 X10*3/uL (160-400); Red Blood Count 5.62 X10*6/uL (4.20-5.50); Red Cell Distribution Width 12.5 % (11.0-16.0); White Blood Count 12.1 X10*3/uL (4.8-10.8)
[2022-02-10 06:28] LABS: Anion Gap 19 (12-20); Blood Urea Nitrogen 15 mg/dL (9-16); Calcium 9.5 mg/dL (8.4-10.2); Carbon Dioxide 23 mmol/L (22-29); Chloride 106 mmol/L (96-108); Creatinine Clr Calc Pharmacy 70.1; Estimated Glomerular Filt Rate > 60; Glucose Random 387 mg/dL (60-115); Potassium 4.9 mmol/L (3.3-5.1); Sodium 143 mmol/L (135-145)
[2022-02-10] MEDS: Insulin Regular, Human 100 UNIT/ML 3 ML VIAL 10 UNIT IVPUSH (06:53)
[2022-02-10 07:20] LABS: Glucose, Whole Blood 274 mg/dL (60-115)
--- NOTE | 2022-02-10 07:34 | PHA.MEDREC ---
Pharmacy Consult ? Medication Reconciliation RN has completed the medication reconciliation., pharmacy reviewed
--- NOTE | 2022-02-10 07:36 | PC.NURSE ---
DEBORAH Brock instructed to give sliding dcale insulin with breakfast. Patient received 10 U regular insulin IV push at 630
[2022-02-10] MEDS: dexAMETHasone 6 MG TABLET PO (08:00)
[2022-02-10] MEDS: Insulin Lispro 100 UNIT/ML 3 ML VIAL SUBCUT ×3 (08:00→19:21)
[2022-02-10] MEDS: Nicotine 14 MG PATCH.TD24 TRANSDERMA (08:00)
--- NOTE | 2022-02-10 09:07 | MHC.CM.PN ---
Patient is Covid (+); CM spoke with her over the phone @ [phone] and addressed IMM with her. Patient lives in a house with her and she required no services nor DME [employer]. Home self care is the goal and CM has initiated and will follow for dc planning. Patient has received Moderna/Covid vax X3 and her PCP is Dr. David.
--- NOTE | 2022-02-10 09:16 | PC.NURSE ---
DEBORAH Brock aware of patients HR
[2022-02-10] MEDS: Loratadine 10 MG TABLET PO (09:46)
[2022-02-10] MEDS: carvediloL 6.25 MG TABLET PO ×2 (09:47→20:37)
--- NOTE | 2022-02-10 09:53 | PC.NURSE ---
Pharmacy called about medications that are not in pyxis. Spoke to patients about medications that we do not have. Family member to bring medications so pharmacy can review
[2022-02-10] MEDS: methIMAzole 5 MG TABLET PO ×2 (11:23→11:33)
[2022-02-10] MEDS: Fluticasone Propionate Nasal 16 GM SPRAY 2 SPRAY NOSTRIL-B ×2 (11:23→11:33)
[2022-02-10 11:37] LABS: Glucose, Whole Blood 345 mg/dL (60-115)
--- NOTE | 2022-02-10 11:38 | HO.PM.IMPN ---
Subjective Subjective Date of Service: 02/10/22 Interval History: Seen in follow up for COVID-19 with COPD exacerbation and acute hypoxic respiratory failure Interal history: Remains hyperglycemic 387. Reports improvement in breathing, but still c/o sob laying flat and with exertion and has cough. Continues on O2 Review of Systems General: No fevers, malaise, unintentional weight loss HEENT: No blurred vision, diplopia. No sore throat, nasal congestion, rhinorrhea, sinus pain, ear pain Cardiovascular: No chest pain, palpitations, or leg edema Respiratory: +shortness of breath, +wheezing, +cough GI: No abdominal pain, nausea, vomiting, diarrhea MSK: +myalgia Neuro: No headaches, weakness, paresthesias Skin: No rashes or lesions Physical Exam Vital Signs: Vital Signs: Last Vital Signs Temp 98.0 F 02/10/22 11:23 Pulse 105 H 02/10/22 11:23 Resp 18 02/10/22 11:23 BP 126/75 02/10/22 11:23 Pulse Ox 94 02/10/22 11:23 O2 Del Method 02/10/22 11:23 O2 Flow Rate 2 02/10/22 11:23 Oxygen Flow Rate 2 02/09/22 17:46 BMI result Body Mass Index 26.6 Constitutional - Awake and Alert, No apparent distress Eyes - PERRLA, EOMI Cardiovascular - S1S2, RRR, No edema Respiratory - Scattered wheezes b/l. Normal lung expansion, Normal respiratory effort, No respiratory distress Extremities - no calf tenderness bilaterally, no swelling Skin - Warm/Dry Neurological - Alert & oriented x3 Psychological - Appropriate affect Objective Data Active Medications Acetaminophen (Acetaminophen 325 Mg Tablet) 650 mg PO Q6H PRN PRN Reason: Pain, Mild (Pain Scale 1-3) Albuterol/Ipratropium (Albuterol/Iprat 2.5/0.5mg 3 Ml Ampul.Neb) 3 ml INHALE RQ4H PRN PRN Reason: wheezing Last Admin: 02/10/22 04:27 Dose: 3 ml Documented By: JADA Albuterol/Ipratropium (Albuterol/Iprat 2.5/0.5mg 3 Ml Ampul.Neb) 3 ml INHALE RQ4H WHILE AWAKE [facility] Last Admin: 02/10/22 11:28 Dose: 3 ml Documented By: KYLE Aspirin (Aspirin Enteric Coated 81 Mg Tablet.) 81 mg PO BEDTIME [facility] Atorvastatin Calcium (Atorvastatin Calcium 80 Mg Tablet) 80 mg PO BEDTIME [facility]; Protocol Benzonatate (Benzonatate 100 Mg Capsule) 200 mg PO TID PRN PRN Reason: cough Carvedilol (Carvedilol 6.25 Mg Tablet) 6.25 mg PO BID [facility]; Protocol Last Admin: 02/10/22 09:47 Dose: 6.25 mg Documented By: RAGHU Comments: 122/66 113 Cyclobenzaprine HCl (Cyclobenzaprine Hcl 10 Mg Tablet) 10 mg PO BID PRN PRN Reason: Muscle Spasm Dexamethasone (Dexamethasone 6 Mg Tablet) 6 mg PO DAILY [facility] Last Admin: 02/10/22 08:00 Dose: 6 mg Documented By: RAGHU Dextrose (Dextrose 50 % 25 Gm/50 Ml Syringe) 25 gm IVPUSH Q15M PRN; Protocol PRN Reason: per Hypoglycemia Standing Ord. Docusate Sodium (Docusate Sodium 100 Mg Capsule) 100 mg PO BEDTIME PRN PRN Reason: Constipation Enoxaparin Sodium (Enoxaparin Sodium 40 Mg/0.4 Ml Syringe) 40 mg SUBCUT Q24H [facility] Last Admin: 02/10/22 00:28 Dose: 40 mg Documented By: JOSÉ MIGUEL Fluticasone Propionate (Fluticasone Propionate Nasal 16 Gm [place]) 2 spray NOSTRIL-B DAILY [facility] Last Admin: 02/10/22 11:33 Dose: 2 spray Documented By: KONRAD Gabapentin (Gabapentin 300 Mg Capsule) 300 mg PO TID [facility] Last Admin: 02/10/22 09:46 Dose: 300 mg Documented By: RAGHU Glucose (Glucose Gel 15 Gm Gel..Gram.) 15 gm PO Q15M PRN; Protocol PRN Reason: per Hypoglycemia Standing Ord. Insulin Glargine (Insulin Glargine,Hum.Rec.Anlog 100 Unit/Ml 10 Ml Vial) 25 unit SUBCUT BEDTIME [facility] Last Admin: 02/10/22 00:29 Dose: 25 unit Documented By: JOSÉ MIGUEL Insulin Human Lispro (Insulin Lispro 100 Unit/Ml 3 Ml Vial) 0 unit SUBCUT QIDACHS [facility]; Protocol Last Admin: 02/10/22 08:00 Dose: 6 unit Documented By: RAGHU Loratadine (Loratadine 10 Mg Tablet) 10 mg PO DAILY [facility] Last Admin: 02/10/22 09:46 Dose: 10 mg Documented By: RAGHU Melatonin (Melatonin 3 Mg Tablet) 6 mg PO BEDTIME PRN PRN Reason: Insomnia Methimazole (Methimazole 5 Mg Tablet) 5 mg PO DAILY [facility] Last Admin: 02/10/22 11:33 Dose: 5 mg Documented By: KONRAD Montelukast Sodium (Montelukast Sodium 10 Mg Tablet) 10 mg PO BEDTIME [facility] Nicotine (Nicotine 14 Mg Patch.Td24) 14 mg TRANSDERMA DAILY [facility] Last Admin: 02/10/22 08:00 Dose: 14 mg Documented By: RAGHU Non-Formulary Medication (Budesonide) 0.5 mg INHALE DAILY [facility] Last Admin: 02/10/22 09:53 Dose: Not Given Documented By: RAGHU Non-Admin Reason: Med Not Available Non-Formulary Medication (Roflumilast [Daliresp]) 500 mcg PO DAILY [facility] Last Admin: 02/10/22 09:53 Dose: Not Given Documented By: RAGHU Non-Admin Reason: Med Not Available Omeprazole (Omeprazole 20 Mg Capsule.) 20 mg PO BID@0630,1630 [facility] Ondansetron HCl (Ondansetron Hcl 4 Mg/2 Ml Vial) 4 mg IVPUSH Q8H PRN PRN Reason: Nausea and Vomiting Oxycodone HCl (Oxycodone Hcl Immed Release 5 Mg Tablet) 7.5 mg PO Q6H PRN PRN Reason: Pain (Scale Score 4-6) Pharmacy Consult (Consult Rx Perform Med Rec) 1 each MISCELLANE ONCE PRN PRN Reason: Consult order Senna (Sennosides 8.6 Mg Tablet) 17.2 mg PO DAILY PRN PRN Reason: Constipation Sodium Chloride (0.9 % Sodium Chloride Flush 3 Ml Syringe) 3 ml IVFLUSH QSHIFT [facility] Last Admin: 02/10/22 08:00 Dose: 3 ml Documented By: RAGHU Vitamin D (Cholecalciferol (Vitamin D3) 25 Mcg Tablet) 50 mcg PO DAILY [facility] Labs CBC & Chem 7: 02/10/22 05:39 02/10/22 05:39 Labs: Laboratory Results - last 24 hr 02/09/22 02/09/22 02/09/22 17:55 19:26 19:26 MCV 88.2 MCH 29.2 MCHC 33.1 RDW 12.7 Plt Count 242 MPV 10.3 Immature Gran % (Auto) 0.5 H Neut % (Auto) 80.5 H Lymph % (Auto) 12.4 L [place] % (Auto) 2.8 Eos % (Auto) 3.1 Baso % (Auto) 0.7 Lymph # (Auto) 1.7 [place] # (Auto) 0.4 Eos # (Auto) 0.4 Baso # (Auto) 0.1 Abs Immat Gran (auto) 0.07 H Absolute Neuts (auto) 11.3 H Absolute Nucleated RBC 0.000 Nucleated RBC % (auto) 0.0 Anion Gap 16 Estim Creat Clear Calc 76.6 Estimated GFR > 60 POC Glucose Random Glucose 260 H Lactic Acid Calcium 9.5 Troponin I High Sens COVID-19 ([facility]) COVID-19 Clin Com Influenza Type A (PCR) NEGATIVE Influenza Type B (PCR) NEGATIVE RSV RNA Qual (PCR) NEGATIVE SARS-CoV-2 RNA (RT-PCR) POSITIVE A 02/09/22 02/09/22 02/09/22 19:26 21:42 22:45 MCV MCH MCHC RDW Plt Count MPV Immature Gran % (Auto) Neut % (Auto) Lymph % (Auto) [place] % (Auto) Eos % (Auto) Baso % (Auto) Lymph # (Auto) [place] # (Auto) Eos # (Auto) Baso # (Auto) Abs Immat Gran (auto) Absolute Neuts (auto) Absolute Nucleated RBC Nucleated RBC % (auto) Anion Gap Estim Creat Clear Calc Estimated GFR POC Glucose Random Glucose Lactic Acid 1.6 Calcium Troponin I High Sens 5.2 COVID-19 (TIMMY) Negative COVID-19 Clin Com See Note Influenza Type A (PCR) Influenza Type B (PCR) RSV RNA Qual (PCR) SARS-CoV-2 RNA (RT-PCR) 02/10/22 02/10/22 02/10/22 00:27 05:39 05:39 MCV 87.4 MCH 29.0 MCHC 33.2 RDW 12.5 Plt Count 252 MPV 10.6 Immature Gran % (Auto) 0.2 Neut % (Auto) 88.0 H Lymph % (Auto) 10.9 L [place] % (Auto) 0.6 L Eos % (Auto) 0.0 Baso % (Auto) 0.3 Lymph # (Auto) 1.3 [place] # (Auto) 0.1 Eos # (Auto) 0.0 Baso # (Auto) 0.0 Abs Immat Gran (auto) 0.03 Absolute Neuts (auto) 10.7 H Absolute Nucleated RBC 0.000 Nucleated RBC % (auto) 0.0 Anion Gap 19 Estim Creat Clear Calc 70.1 Estimated GFR > 60 POC Glucose 288 H Random Glucose 387 H* Lactic Acid Calcium 9.5 Troponin I High Sens COVID-19 (TIMMY) COVID-19 Clin Com Influenza Type A (PCR) Influenza Type B (PCR) RSV RNA Qual (PCR) SARS-CoV-2 RNA (RT-PCR) 02/10/22 02/10/22 07:14 11:33 MCV MCH MCHC RDW Plt Count MPV Immature Gran % (Auto) Neut % (Auto) Lymph % (Auto) [place] % (Auto) Eos % (Auto) Baso % (Auto) Lymph # (Auto) [place] # (Auto) Eos # (Auto) Baso # (Auto) Abs Immat Gran (auto) Absolute Neuts (auto) Absolute Nucleated RBC Nucleated RBC % (auto) Anion Gap Estim Creat Clear Calc Estimated GFR POC Glucose 274 H 345 H Random Glucose Lactic Acid Calcium Troponin I High Sens COVID-19 (TIMMY) COVID-19 Clin Com Influenza Type A (PCR) Influenza Type B (PCR) RSV RNA Qual (PCR) SARS-CoV-2 RNA (RT-PCR) Assessment and Plan (1) COVID-19: Status: Acute (2) COPD exacerbation: Status: Acute (3) Hypoxia: Status: Acute Plan This is a? 60-year-old female with pertinent history of insulin-dependent diabetes mellitus, essential hypertension, hyperlipidemia, COPD not on home oxygen, on chronic prednisone, chronic back pain, hyperthyroidism, CAD status post stent, obstructive sleep apnea not on CPAP, gastroesophageal reflux disease who presents to the emergency department for evaluation of dyspnea. #. Acute hypoxemic respiratory failure secondary to: #. COVID-19 infection -? Continue supplemental O2 to maintain oxygen saturation greater than 90%, wean as tolerated.? Currently requiring 2 L supplemental oxygen.? -Continue decadron -Apprecaite ID input re: remdesivir treatment -COVID-19 isolation precautions. #. Acute excaerbation of COPD due to above -? Steroids as above.? -Scheduled and p.r.n. DuoNebs.? -No concern for bacterial superinfection, defer antibiotics.? -Continue home inhalers #. Insulin-dependent diabetes mellitus with hyperglycemia - continue home basal regimen.? Initiate Accu-Cheks with sliding scale insulin. #. CAD s/p stent -? Continue aspirin and high-intensity statin #. HTN - continue home p.o. antihypertensives #. Chronic back pain -continue po home medications #. Reactive leukocytosis #. Tobacco use disorder -will order nicotine patch. Counseled against use #. Chronic secondary poylcythemia -likely due to MCKAY not on CPAP DVT prophylaxis: Lovenox 40mg daily Full code Diabetic diet Requires ongoing inpt stay due to acute hypxia requiring supplemental O2 and IV steroid Quality Stroke Does the patient have a stroke diagnosis?: No VTE Prior VTE?: No VTE Risk Level:: Medical - moderate - high VTE Device Contraindication: Treatment Not Indicated VTE Drug Contraindication: N/A - Med Ordered
--- NOTE | 2022-02-10 11:45 | PC.NURSE ---
patient a&ox3, monitoring tech applied pt sinus tach on monitor, pt denies pain/discomfort, lungs in/ex wheezing- rt at bedside for updraft, pt on 2L O2 nc- not home o2 dependent, no harris/sob noted, pt speaking in full sentences, at bedside brought in medications pharmacy needed, poc [phone] will medicated when lunches arrive, vitals otherwise stable, call hanley within reach, will continue to monitor
[2022-02-10] MEDS: Cholecalciferol (Vitamin D3) 25 MCG TABLET 50 MCG PO (12:09)
[2022-02-10] MEDS: Omeprazole 20 MG CAPSULE.DR PO (16:15)
--- NOTE | 2022-02-10 18:01 | PC.NURSE ---
pt being transported upstairs by tech called pt registration as it will not allow this nurse to take the patient off the board
[2022-02-10 18:55] LABS: Glucose, Whole Blood 302 mg/dL (60-115)
[2022-02-10] MEDS: Aspirin Enteric Coated 81 MG TABLET.DR PO (20:37)
[2022-02-10] MEDS: Montelukast Sodium 10 MG TABLET PO (20:38)
[2022-02-10] MEDS: oxyCODONE HCl Immed Release 5 MG TABLET 7.5 MG PO (22:16)
[2022-02-11] VITALS (11 sets, daily range): BP systolic 117–155; BP diastolic 58–75; PULSE 76–99; RESP 16–20; TEMP 36.3–37.2; O2SAT 94–98
[2022-02-11] MEDS: Omeprazole 20 MG CAPSULE.DR PO ×2 (06:03→16:36)
[2022-02-11 07:17] LABS: Glucose, Whole Blood 309 mg/dL (60-115)
[2022-02-11] MEDS: Insulin Lispro 100 UNIT/ML 3 ML VIAL SUBCUT ×5 (07:41→20:09)
[2022-02-11] MEDS: Albuterol/Iprat 2.5/0.5MG 3 ML AMPUL.NEB INHALE ×4 (08:14→20:41)
[2022-02-11] MEDS: Loratadine 10 MG TABLET PO (09:39)
[2022-02-11] MEDS: dexAMETHasone 6 MG TABLET PO (09:39)
[2022-02-11] MEDS: Gabapentin 300 MG CAPSULE PO ×3 (09:39→20:09)
[2022-02-11] MEDS: carvediloL 6.25 MG TABLET PO ×2 (09:39→20:09)
[2022-02-11] MEDS: oxyCODONE HCl Immed Release 5 MG TABLET 7.5 MG PO ×2 (09:40→20:08)
[2022-02-11] MEDS: 0.9 % Sodium Chloride Flush 3 ML SYRINGE IVFLUSH ×2 (09:41→16:38)
[2022-02-11] MEDS: Nicotine 14 MG PATCH.TD24 TRANSDERMA (09:41)
[2022-02-11] MEDS: Cholecalciferol (Vitamin D3) 25 MCG TABLET 50 MCG PO (10:05)
[2022-02-11 11:25] LABS: Glucose, Whole Blood 295 mg/dL (60-115)
[2022-02-11 16:01] LABS: Glucose, Whole Blood 359 mg/dL (60-115)
--- NOTE | 2022-02-11 16:38 | P.PNIM_ITS ---
Subjective Subjective Date of Service: 02/11/22 Interval History: acute COPD exacerbation , COVID Review of Systems patient still short of breath- talks with short of breath and small sentences. Has dry cough Denies any chest pain or abdominal pain or nausea vomiting. Physical Exam Vital Signs: Vital Signs: Last Vital Signs Temp 97.3 F 02/11/22 15:39 Pulse 99 02/11/22 15:39 Resp 17 02/11/22 15:39 BP 143/70 H 02/11/22 15:39 Pulse Ox 98 02/11/22 15:39 O2 Del Method 02/11/22 15:39 O2 Flow Rate 2 02/11/22 11:25 FiO2 95 02/10/22 20:00 Oxygen Flow Rate 2 02/09/22 17:46 BMI result Body Mass Index 26.6 Appearance: Alert.? Oriented X3.? not in distress. cvs: rrr, [id number] , no murmur res: air entry diminshed ,has b/l wheezing abd: no rebound or guarding ,nt, bs present. ext pulses present , no cyanosis . neuro: axo3 , nonfocal. Objective Data Active Medications Acetaminophen (Acetaminophen 325 Mg Tablet) 650 mg PO Q6H PRN PRN Reason: Pain, Mild (Pain Scale 1-3) Albuterol/Ipratropium (Albuterol/Iprat 2.5/0.5mg 3 Ml Ampul.Neb) 3 ml INHALE RQ4H PRN PRN Reason: wheezing Last Admin: 02/10/22 23:52 Dose: 3 ml Documented By: SALLY Albuterol/Ipratropium (Albuterol/Iprat 2.5/0.5mg 3 Ml Ampul.Neb) 3 ml INHALE RQ4H WHILE AWAKE COUNTS INCLUDE 234 BEDS AT THE [facility] Last Admin: 02/11/22 15:33 Dose: 3 ml Documented By: JOSE Aspirin (Aspirin Enteric Coated 81 Mg Tablet.) 81 mg PO BEDTIME SOM Last Admin: 02/10/22 20:37 Dose: 81 mg Documented By: AUGIE Atorvastatin Calcium (Atorvastatin Calcium 80 Mg Tablet) 80 mg PO BEDTIME COUNTS INCLUDE 234 BEDS AT THE [facility]; Protocol Last Admin: 02/10/22 20:38 Dose: 80 mg Documented By: AUGIE Benzonatate (Benzonatate 100 Mg Capsule) 200 mg PO TID PRN PRN Reason: cough Carvedilol (Carvedilol 6.25 Mg Tablet) 6.25 mg PO BID COUNTS INCLUDE 234 BEDS AT THE [facility]; Protocol Last Admin: 02/11/22 09:39 Dose: 6.25 mg Documented By: NIELS Dexamethasone (Dexamethasone 6 Mg Tablet) 6 mg PO DAILY COUNTS INCLUDE 234 BEDS AT THE [facility] Last Admin: 02/11/22 09:39 Dose: 6 mg Documented By: NIELS Dextrose (Dextrose 50 % 25 Gm/50 Ml Syringe) 25 gm IVPUSH Q15M PRN; Protocol PRN Reason: per Hypoglycemia Standing Ord. Docusate Sodium (Docusate Sodium 100 Mg Capsule) 100 mg PO BEDTIME PRN PRN Reason: Constipation Enoxaparin Sodium (Enoxaparin Sodium 40 Mg/0.4 Ml Syringe) 40 mg SUBCUT Q24H COUNTS INCLUDE 234 BEDS AT THE [facility] Last Admin: 02/10/22 22:17 Dose: 40 mg Documented By: AUGIE Fluticasone Propionate (Fluticasone Propionate Nasal 16 Gm [place]) 2 spray NOSTRIL-B DAILY COUNTS INCLUDE 234 BEDS AT THE [facility] Last Admin: 02/10/22 11:33 Dose: 2 spray Documented By: KONRAD Gabapentin (Gabapentin 300 Mg Capsule) 300 mg PO TID COUNTS INCLUDE 234 BEDS AT THE [facility] Last Admin: 02/11/22 16:36 Dose: 300 mg Documented By: NIELS Glucose (Glucose Gel 15 Gm Gel..Gram.) 15 gm PO Q15M PRN; Protocol PRN Reason: per Hypoglycemia Standing Ord. Insulin Glargine (Insulin Glargine,Hum.Rec.Anlog 100 Unit/Ml 10 Ml Vial) 30 unit SUBCUT BEDTIME COUNTS INCLUDE 234 BEDS AT THE [facility] Insulin Human Lispro (Insulin Lispro 100 Unit/Ml 3 Ml Vial) 0 unit SUBCUT QIDACHS COUNTS INCLUDE 234 BEDS AT THE [facility]; Protocol Last Admin: 02/11/22 16:35 Dose: 12 unit Documented By: NIELS Loratadine (Loratadine 10 Mg Tablet) 10 mg PO DAILY COUNTS INCLUDE 234 BEDS AT THE [facility] Last Admin: 02/11/22 09:39 Dose: 10 mg Documented By: NIELS Melatonin (Melatonin 3 Mg Tablet) 6 mg PO BEDTIME PRN PRN Reason: Insomnia Methimazole (Methimazole 5 Mg Tablet) 5 mg PO DAILY COUNTS INCLUDE 234 BEDS AT THE [facility] Last Admin: 02/10/22 11:33 Dose: 5 mg Documented By: KONRAD Montelukast Sodium (Montelukast Sodium 10 Mg Tablet) 10 mg PO BEDTIME COUNTS INCLUDE 234 BEDS AT THE [facility] Last Admin: 02/10/22 20:38 Dose: 10 mg Documented By: AUGIE Nicotine (Nicotine 14 Mg Patch.Td24) 14 mg TRANSDERMA DAILY COUNTS INCLUDE 234 BEDS AT THE [facility] Last Admin: 02/11/22 09:41 Dose: 14 mg Documented By: NIELS Pt Own (Roflumilast [Daliresp] 500 Mcg Tablet) 500 mcg PO DAILY COUNTS INCLUDE 234 BEDS AT THE [facility] Last Admin: 02/11/22 09:50 Dose: 500 mcg Documented By: NIELS Pt Own (Budesonide 0 .5 Mg/2 Ml Suspension For Nebulization) 0.5 mg [facility] AT THE [facility] Last Admin: 02/11/22 08:14 Dose: 0.5 mg Documented By: JOSE Pt Own ( Methocarbamol 750 Mg Tablet) 750 mg PO Q8H PRN PRN Reason: Muscle Spasm Last Admin: 02/11/22 09:50 Dose: 750 mg Documented By: NIELS Pt Own (Fluticasone- Umeclidin-Vilanter [ Trelegy Ellipta] 100 -62.5-25 Mcg 1 inhalation INHALE RDAILY COUNTS INCLUDE 234 BEDS AT THE [facility] Last Admin: 02/11/22 08:14 Dose: 1 inhalation Documented By: JOSE Omeprazole (Omeprazole 20 Mg Capsule.Dr) 20 mg PO BID@0630,1630 COUNTS INCLUDE 234 BEDS AT THE [facility] Last Admin: 02/11/22 16:36 Dose: 20 mg Documented By: NIELS Ondansetron HCl (Ondansetron Hcl 4 Mg/2 Ml Vial) 4 mg IVPUSH Q8H PRN PRN Reason: Nausea and Vomiting Oxycodone HCl (Oxycodone Hcl Immed Release 5 Mg Tablet) 7.5 mg PO Q6H PRN PRN Reason: Pain (Scale Score 4-6) Last Admin: 02/11/22 09:40 Dose: 7.5 mg Documented By: NIELS Pharmacy Consult (Consult Rx Perform Med Rec) 1 each MISCELLANE ONCE PRN PRN Reason: Consult order Senna (Sennosides 8.6 Mg Tablet) 17.2 mg PO DAILY PRN PRN Reason: Constipation Sodium Chloride (0.9 % Sodium Chloride Flush 3 Ml Syringe) 3 ml IVFLUSH QSHIFT COUNTS INCLUDE 234 BEDS AT THE [facility] Last Admin: 02/11/22 09:41 Dose: 3 ml Documented By: NIELS Vitamin D (Cholecalciferol (Vitamin D3) 25 Mcg Tablet) 50 mcg PO DAILY COUNTS INCLUDE 234 BEDS AT THE [facility] Last Admin: 02/11/22 10:05 Dose: 50 mcg Documented By: NIELS Labs CBC & Chem 7: 02/10/22 05:39 02/10/22 05:39 Labs: Laboratory Results - last 24 hr 02/10/22 02/11/22 02/11/22 18:48 07:13 11:12 POC Glucose 302 H 309 H 295 H 02/11/22 15:58 POC Glucose 359 H* Microbiology Microbiology Results: Microbiology 02/09/22 22:45 Blood Culture - Preliminary Blood - Venous No growth after 24 hours. 02/09/22 21:42 Blood Culture - Preliminary Blood - Venous No growth after 24 hours. Assessment and Plan (1) COVID-19: Status: Acute (2) COPD exacerbation: Status: Acute (3) Hypoxia: Status: Acute (4) Diabetes: Status: Acute (5) Hyperglycemia: Status: Acute Plan 60-year-old female with pertinent history of insulin-dependent diabetes mellitus, essential hypertension, hyperlipidemia, COPD not on home oxygen, on chronic prednisone, chronic back pain, hyperthyroidism, CAD status post stent, obstructive sleep apnea not on CPAP, gastroesophageal reflux disease who presents to the emergency department for evaluation of dyspnea. #. Acute hypoxemic respiratory failure secondary to: #. COVID-19 infection -? Continue supplemental O2 to maintain oxygen saturation greater than 90%, wean as tolerated.? Currently requiring 2 L supplemental oxygen.? -Continue decadron -Apprecaite ID input re: remdesivir treatment -COVID-19 isolation precautions. #. Acute excaerbation of COPD due to above -? Steroids as above.? -Scheduled and p.r.n. DuoNebs.? -No concern for bacterial superinfection, defer antibiotics.? -Continue home inhalers #. Insulin-dependent diabetes mellitus with hyperglycemia-uncontrolled. fs in 350's adjusted lantus and sliding scale. #. CAD s/p stent -? Continue aspirin and high-intensity statin #. HTN - continue home p.o. antihypertensives #. Chronic back pain -continue po home medications #. Reactive leukocytosis #. Tobacco use disorder -will order nicotine patch. Counseled against use #. Chronic secondary poylcythemia -likely due to MCKAY not on CPAP DVT prophylaxis: Lovenox 40mg daily Full code Diabetic diet Ongoing inaptient need: Acute hypoxemic respiratory failure secondary to COPD exacerbation -needs IV steroids, nebs, supplement oxygen, uncontrolled diabetes. Quality Stroke Does the patient have a stroke diagnosis?: No VTE Prior VTE?: No VTE Risk Level:: Medical - moderate - high VTE Device Contraindication: Treatment Not Indicated VTE Drug Contraindication: N/A - Med Ordered
[2022-02-11 19:51] LABS: Glucose, Whole Blood 266 mg/dL (60-115)
[2022-02-11] MEDS: Atorvastatin Calcium 80 MG TABLET PO (20:08)
[2022-02-11] MEDS: Aspirin Enteric Coated 81 MG TABLET.DR PO (20:08)
[2022-02-11] MEDS: Insulin Glargine,Hum.rec.anlog 100 UNIT/ML 10 ML VIAL 30 UNIT SUBCUT (20:09)
[2022-02-11] MEDS: Montelukast Sodium 10 MG TABLET PO (20:09)
[2022-02-11] MEDS: Enoxaparin Sodium 40 MG/0.4 ML SYRINGE SUBCUT (20:17)
[2022-02-12] MEDS: 0.9 % Sodium Chloride Flush 3 ML SYRINGE IVFLUSH ×2 (00:53→08:00)
[2022-02-12] MEDS: oxyCODONE HCl Immed Release 5 MG TABLET 7.5 MG PO ×2 (02:13→09:01)
[2022-02-12 03:18] VITALS: BP 138/67; PULSE 92; RESP 18; TEMP 36.9; O2SAT 94
[2022-02-12] MEDS: Omeprazole 20 MG CAPSULE.DR PO (05:44)
[2022-02-12 07:37] LABS: Glucose, Whole Blood 324 mg/dL (60-115)
[2022-02-12] MEDS: Cholecalciferol (Vitamin D3) 25 MCG TABLET 50 MCG PO (07:53)
[2022-02-12] MEDS: carvediloL 6.25 MG TABLET PO (07:54)
[2022-02-12] MEDS: dexAMETHasone 6 MG TABLET PO (07:54)
[2022-02-12] MEDS: Nicotine 14 MG PATCH.TD24 TRANSDERMA (07:54)
[2022-02-12] MEDS: methIMAzole 5 MG TABLET PO (07:54)
[2022-02-12] MEDS: Gabapentin 300 MG CAPSULE PO (07:54)
[2022-02-12] MEDS: Loratadine 10 MG TABLET PO (07:54)
[2022-02-12 08:00] VITALS: BP 147/78; PULSE 84; RESP 16; TEMP 35.7; O2SAT 94
[2022-02-12] MEDS: Fluticasone Propionate Nasal 16 GM SPRAY 2 SPRAY NOSTRIL-B (08:00)
[2022-02-12] MEDS: Insulin Lispro 100 UNIT/ML 3 ML VIAL SUBCUT ×2 (08:00→13:06)
[2022-02-12] MEDS: Albuterol/Iprat 2.5/0.5MG 3 ML AMPUL.NEB INHALE ×2 (08:28→12:10)
[2022-02-12 08:31] VITALS: PULSE 67; RESP 20; O2SAT 94
[2022-02-12 11:27] VITALS: BP 123/66; PULSE 75; RESP 16; TEMP 36.2; O2SAT 95
[2022-02-12 11:34] LABS: Glucose, Whole Blood 305 mg/dL (60-115)
[2022-02-12 12:10] VITALS: PULSE 88; RESP 20; O2SAT 92
--- NOTE | 2022-02-12 12:25 | MHC.CM.PN ---
IMM 02/12/22 Female Covid+ is discharged today to home, self care. Family will provide transportation home.
--- NOTE | 2022-02-12 12:35 | PM.DS ---
DS: Providers Provider Date of Service: 02/12/22 Date of admission: 02/09/22 22:39 Primary care physician: Unknown Physician Consults: 02/09/22 22:38 Consult to Infectious Diseases Routine Consulting Provider: Madiha Law Reason for consultation: COVID hypoxia DS: Diagnosis Discharge Diagnosis (1) COVID-19: Status: Acute (2) COPD exacerbation: Status: Acute (3) Hypoxia: Status: Acute (4) Diabetes: Status: Acute (5) Hyperglycemia: Status: Acute DS: Summary Hospital Course Hospital Course: 60-year-old female with pertinent history of insulin-dependent diabetes mellitus, essential hypertension, hyperlipidemia, COPD not on home oxygen, on chronic prednisone, chronic back pain, hyperthyroidism, CAD status post stent, obstructive sleep apnea not on CPAP, gastroesophageal reflux disease who presents to the emergency department for evaluation of dyspnea. Patient states she has been getting short of breath for the last 3 days, worse with exertion.? Patient also noticed associated wheezing.? Her home inhaler did not help with it.? On the day of presentation, patient had difficulty ambulating in the house and getting up from the bed.? Upon EMS arrival, she was satting 84% on room air.? Patient denies any fever chills, nausea, vomiting.? Denies any sick contacts.? No chest discomfort, cough, palpitations.? Patient denies abdominal discomfort, changes in urinary or bowel habits. ? In the emergency department, patient was found to be positive for COVID-19 and requiring 2 L supplemental oxygen. Hopsital course: Patient was admitted for acute hypoxemic respiratory failure secondary to COVID and COPD exacerbation: Treated with nebs steroids, supplement oxygen seems to be improved. Saturating fine 95% off oxygen. going home with p.o. steroids, advised self isolation for a week or so. Follow-up with PCP outpatient. Above management discussed with the patient in detail length she understand and in agreement with the above plan, time spent 50 minute. Time Spent with Patient Time attestation: Total time spent providing and/or coordinating discharge services: Discharge coordination time: Greater than 30 minutes Quality: Safe Use of Opioids Does Pt have an Active Cancer Diagnosis on the Problem List?: No Quality: Stroke Does the patient have a stroke diagnosis?: No Physical Exam Vital Signs: Vital Signs: Last Vital Signs Temp 97.1 F 02/12/22 11:27 Pulse 88 02/12/22 12:10 Resp 20 02/12/22 12:10 BP 123/66 02/12/22 11:27 Pulse Ox 95 02/12/22 11:27 O2 Del Method 02/12/22 11:27 O2 Flow Rate 2 02/11/22 11:25 FiO2 95 02/10/22 20:00 Oxygen Flow Rate 2 02/09/22 17:46 BMI result Body Mass Index 26.6 Appearance: Alert.? Oriented X3.? not in distress. cvs: rrr, [id number] , no murmur res: air entry diminshed ,no wheezin abd: no rebound or guarding ,nt, bs present. ext pulses present , no cyanosis . neuro: axo3 , nonfocal. DS: Data Data Completed and Pending Labs on day of discharge: Laboratory Results - last 24 hr 02/11/22 02/11/22 02/12/22 15:58 19:47 07:33 POC Glucose 359 H* 266 H 324 H 02/12/22 11:25 POC Glucose 305 H Preliminary micro results at discharge 02/09/22 22:45 Blood Culture - Preliminary Blood - Venous No growth after 48 hours. 02/09/22 21:42 Blood Culture - Preliminary Blood - Venous No growth after 48 hours. Imaging Chest x-ray: Radiologist's impression: ITS Impressions Chest X-Ray 02/09/22 19:05 IMPRESSION: Minimal left basilar atelectasis. Discharge Plan Discharge Anticipated Discharge Date/Time: 02/12/22 11:34 Patient Disposition: Home, Self-Care Discharge Diagnosis: acute hypoxemic respiratory failure secondary to COVID infection, COPD exacerbation. Referrals: Physician,Unknown J [Primary Care Provider] - 1 Week Discharge Medications: New nicotine 14 mg/24 hr Patch 24 Hour 14 mg transdermal DAILY Qty: 7 0RF dexamethasone 6 mg Tablet 6 mg PO DAILY Qty: 7 0RF benzonatate 100 mg Capsule 200 mg PO TID PRN (Reason: cough) Qty: 10 0RF Continued budesonide 0.5 mg/2 mL suspension for nebulization 0.5 mg inhalation DAILY Qty: 60 11RF methocarbamol 750 mg tablet 750 mg PO Q8H PRN (Reason: for muscle spasm) 30 Days Qty: 90 0RF methimazole 5 mg tablet 5 mg PO DAILY 30 Days Qty: 30 3RF lidocaine 5 % cream 1 appl topical DAILY Protocol: Apply to: Apply to: BACK,CALF,TOP OF FOOT sennosides [senna] 8.6 mg tablet 2 tab PO DAILY PRN (Reason: Constipation) docusate sodium 100 mg capsule 1 cap PO BEDTIME PRN (Reason: Constipation) prednisone 5 mg tablet 1 tab PO DAILY cholecalciferol (vitamin D3) 50 mcg (2,000 unit) capsule 2,000 mcg PO DAILY Daliresp 500 mcg Tablet 500 mcg PO DAILY Trelegy Ellipta 100-62.5-25 mcg blister with device 1 inh inhalation DAILY nicotine 21 mg/24 hr Patch 24 Hour 1 patch TRANSDERMAL DAILY insulin lispro [Humalog KwikPen Insulin] 100 unit/mL Insulin Pen 6 - 10 unit SUBCUT TIDAC Rx Instructions: 6 TO 10 UNITS BEFORE MEALS, PER PATIENT MAY REQUIRE HIGHER DOSES WHEN ON STEROIDS albuterol sulfate [Ventolin HFA] 90 mcg/actuation Hfa Aerosol Inhaler 2 puff INHALATION Q4-6H PRN (Reason: Shortness Of Breath Or Wheezing) ipratropium-albuterol 0.5 mg-3 mg(2.5 mg base)/3 mL solution for nebulization 3 ml inhalation QID PRN (Reason: Respiratory Distress) Combivent Respimat 20-100 mcg/actuation mist 1 puff inhalation QID Rx Instructions: space evenly during waking hours oxycodone-acetaminophen 7.5-325 mg tablet 1 tab PO Q6H PRN (Reason: Pain (Scale Score 4-6)) omeprazole 20 mg capsule,delayed release(DR/EC) 20 mg PO BID@0630,1630 aspirin 81 mg tablet,delayed release (DR/EC) 81 mg PO DAILY carvedilol 6.25 mg tablet 6.25 mg PO BID atorvastatin 80 mg tablet 80 mg PO BEDTIME Protocol: Hold for SBP< HOLD for SBP < : 90 montelukast 10 mg tablet 10 mg PO BEDTIME cetirizine 10 mg tablet 10 mg PO DAILY fluticasone propionate 50 mcg/actuation spray,suspension 2 spray intranasal DAILY (DME) lancets [TRUEplus Lancets] 33 gauge misc See Rx Instructions .ROUTE TID Qty: 100 Rx Instructions: As directed (DME) FreeStyle Lite Strips Strip See Rx Instructions .ROUTE TID Qty: 10 Rx Instructions: As directed naloxone 4 mg/actuation spray,non-aerosol 1 spray intranasal ONCE PRN (Reason: Opioid Overdose) gabapentin 300 mg capsule 300 mg PO TID Trulicity 0.75 mg/0.5 mL pen injector 0.75 mg subcut REESE@1000 Changed insulin glargine [Lantus Solostar U-100 Insulin] 100 unit/mL (3 mL) Insulin Pen 30 unit SUBCUT BID Qty: 15 0RF Rx Instructions: PER PATIENT, MAY REQUIRE HIGHER DOSES WHEN ON STEROIDS Discharge Orders: Discharge Order (Routine); Ordered 02/12/22 Ordered By: Dhaval Hancock Diet: Advance to usual diet Activity on Discharge: As tolerated Stand Alone Forms: Patient Portal Discharge page Care Plan Goals: Patient was admitted for acute hypoxemic respiratory failure secondary to COVID and COPD exacerbation: Treated with nebs steroids, supplement oxygen seems to be improved. Saturating fine 95% off oxygen. going home with p.o. steroids, advised self isolation for a week or so. Follow-up with PCP outpatient. Health Concerns: as above. Plan of Treatment: As above. Assessment: As above. Discharge Date/Time: 02/12/22 14:47
[2022-02-12] MEDS: Insulin Lispro 100 UNIT/ML 3 ML VIAL 10 UNIT SUBCUT (13:06)
== END 2022-02-12 14:47 | disposition home or self-care (01) | DRG 177 ==
LOC: HO.ED 18:36 → HO.EDOVER 22:47 → HO.IMC 02-10 15:59
PROVIDERS: Physician Assistant; Admitting Provider Student in an Organized Health Care Education/Training Program; Emergency Provider Emergency Medicine; PCP Internal Medicine Geriatric Medicine; Visit Provider Internal Medicine
DX: U07.1 COVID-19 (principal); J96.01 Acute respiratory failure with hypoxia; E03.8 Other specified hypothyroidism; Z87.891 Personal history of nicotine dependence; G89.29 Other chronic pain; I25.10 Atherosclerotic heart disease of native coronary artery without angina pectoris; G47.33 Obstructive sleep apnea (adult) (pediatric); D75.1 Secondary polycythemia; E11.65 Type 2 diabetes mellitus with hyperglycemia; Z95.5 Presence of coronary angioplasty implant and graft; Z88.5 Allergy status to narcotic agent; Z88.8 Allergy status to other drugs, medicaments and biological substances; Z79.4 Long term (current) use of insulin; Z79.51 Long term (current) use of inhaled steroids; Z79.52 Long term (current) use of systemic steroids; Z79.82 Long term (current) use of aspirin; Z79.899 Other long term (current) drug therapy
CPT/HCPCS: 0241U; 36415; 71046; 80048; 82947; 83605; 84484; 85025; 87040; 87635; 93005; 94640; 99285; J0696; J1650; J2930; J8540

== ENCOUNTER 2022-03-07 13:33 | Outpatient (REF) | payer MEDICARE, MEDICAID, SELFPAY ==
--- NOTE | 2022-03-07 14:33 | MHC.AU.HA2 ---
Hearing Instrument Fitting- Adult- Binaural Date of Visit: 03/07/22 Hearing Instruments Dispensed: Right Ear: Dominguez, Model, Color, Serial Number: Man Gilbert [id number], [id number], Bemario alberto [employer] Mechanic Repair Warranty: 04/23/2025 [employer] Access[employer] Mechanic Loss and Damage Warranty: 04/23/2025 [facility] Service Plan: 03/07/2023 Battery Size: Rechargeable History Faculty Member/Slim Tube: 1M History Faculty Member 4.0 Earmold/Dome/CShell/SlimTip: Medium Open Type of Wax Guard: CeruShield Disk Left Ear: Dominguez, Model, Color, Serial Number: Man Vieraeo [id number], [id number], Bemario alberto [employer] Mechanic Repair Warranty: 04/23/2025 [employer] Access[employer] Mechanic Loss and Damage Warranty: 04/23/2025 [facility] Service Plan: 03/07/2023 Battery Size: Rechargeable History Faculty Member/Slim Tube: 1 M History Faculty Member 4.0 Earmold/Dome/CShell/SlimTip: Medium Open Type of Wax Guard: CeruShield Disk Summary of Fitting: 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 Verifit performed and levels adjusted to better reach targets. Patient was pleased with the sound and did not feel any additional adjustments were necessary. Hearing aid care and maintenance were discussed and practiced. Her spouse has hearing aids, so she is familiar with much of the day-to-day care. She did not want the hearing aids paired to her phone at this time. Recommendations: Patient will call for follow-up as needed. Diagnosis Code(s): Primary Diagnosis: H90.3 Bilateral Sensorineural Hearing Loss Signature: Provider: Alyson Anne, [facility]
== END 2022-03-07 13:34 | disposition home or self-care (01) ==
LOC: HO.HAP 13:33
PROVIDERS: Visit Provider Internal Medicine Geriatric Medicine
DX: Z46.1 Encounter for fitting and adjustment of hearing aid (principal); H90.3 Sensorineural hearing loss, bilateral
CPT/HCPCS: V5011; V5020; V5160; V5261

== ENCOUNTER 2022-04-21 09:48 | Outpatient (REF) | payer MEDICARE, MEDICAID, SELFPAY ==
--- NOTE | ~2022-04-21 | US_ITS ---
EXAM: Pelvic Ultrasound CLINICAL INDICATION: Right ovarian cyst COMPARISON: CT abdomen pelvis 06/29/2020 and pelvic ultrasound 06/17/2018 TECHNIQUE: The pelvis was evaluated using transabdominal and transvaginal imaging. FINDINGS: The uterus measures 5.8 x 3.7 x 4.2 cm in longitudinal by AP by transverse dimension. The endometrial stripe is not thickened and measures 0.5 cm. The left ovary measures approximately 2.7 x 1.5 x 1.9 cm and is normal. The right ovary measures approximately 2.6 x 1.9 x 1.6 cm. Adjacent to the right ovary there is a 0.9 x 1.6 x 1.4 cm cystic focus (previously 3.0 x 1.9 x 1.9 cm). There is no free fluid in the pelvis. US/US pelvic and transvaginal IMPRESSION: 1. Normal thickness endometrial stripe. 2. Interval decrease in size of now 1.4 cm cystic focus adjacent to the right ovary.
== END 2022-04-21 09:49 | disposition home or self-care (01) ==
LOC: HO.US 09:48
PROVIDERS: PCP Internal Medicine Geriatric Medicine; Visit Provider Advanced Practice Midwife
DX: N83.201 Unspecified ovarian cyst, right side (principal)
CPT/HCPCS: 76830; 76856

== ENCOUNTER → 2022-04-29 08:51 | Outpatient (BNVA) | payer MEDICARE, MEDICAID, SELFPAY | PROVIDERS: PCP Internal Medicine Geriatric Medicine; Visit Provider Nurse Practitioner Family | DX: M96.1 Postlaminectomy syndrome, not elsewhere classified (principal); M62.830 Muscle spasm of back; M47.26 Other spondylosis with radiculopathy, lumbar region; M53.3 Sacrococcygeal disorders, not elsewhere classified | CPT/HCPCS: 99212 ==

== ENCOUNTER 2022-05-05 09:52 | Outpatient (REF) | payer MEDICARE, MEDICAID, SELFPAY ==
[2022-05-05 16:41] LABS: Urine Cytology See Pathology rpt
== END 2022-05-05 09:53 | disposition home or self-care (01) ==
LOC: HO.LAB 09:52
PROVIDERS: PCP Internal Medicine Geriatric Medicine; Visit Provider Nurse Practitioner Family
DX: N20.0 Calculus of kidney (principal); R31.29 Other microscopic hematuria
CPT/HCPCS: 88112; 99202

== ENCOUNTER 2022-05-19 | Outpatient (REF) | payer MEDICARE, MEDICAID, SELFPAY ==
[2022-05-19 13:50] LABS: Urine Cytology See Pathology rpt
[2022-05-19 14:19] LABS: Blood Urea Nitrogen 16 mg/dL (9-16); Estimated Glomerular Filt Rate > 60
== END 2022-05-19 00:01 | disposition home or self-care (01) ==
LOC: HO.LAB
PROVIDERS: PCP Internal Medicine Geriatric Medicine; Visit Provider Nurse Practitioner Family
DX: N20.0 Calculus of kidney (principal); R31.29 Other microscopic hematuria
CPT/HCPCS: 36415; 82565; 84520; 88112

== ENCOUNTER 2022-05-21 09:50 | Outpatient (REF) | payer MEDICARE, MEDICAID, SELFPAY ==
--- NOTE | ~2022-05-21 | CT_ITS ---
EXAMINATION: CT ABDOMEN AND PELVIS WITHOUT AND WITH CONTRAST CLINICAL INFORMATION: Microscopic hematuria COMPARISON: Previous pelvic ultrasound March 2022 and abdominal and pelvic CT June 2020 TECHNIQUE: Noncontrast CT of the abdomen and pelvis is performed followed by split bolus contrast-enhanced images using 85 mL Omnipaque 350 contrast.? Postcontrast imaging is performed during the combined nephrogram and excretion phase. Sagittal and coronal reformatted images were obtained on the technologist's workstation for both the precontrast and postcontrast phases. This CT examination was performed using dose optimization techniques as appropriate, variously including the following: *Automated exposure control *Adjustment of mA and/or kV according to patient size (this includes techniques or standardized protocols for targeted exams where dose is matched to indication/reason for exam; i.e. extremities or head) *Use of iterative reconstruction technique DLP: 624 mGy-cm FINDINGS: LUNG BASES: The visualized lung bases are unremarkable. LIVER, GALLBLADDER, AND BILIARY TREE: Fatty liver. The gallbladder is not seen and may have been removed. No focal liver lesion. No biliary duct dilatation. PANCREAS: Unremarkable. SPLEEN: Unremarkable. ADRENAL GLANDS: Unremarkable. KIDNEYS AND URETERS: The left kidney is normal in size and shape. There is a small cyst in the lower pole of the left kidney. No imaging follow-up. 2 mm stone in the upper pole of the left kidney. The right kidney is smaller than the left and there is right renal cortical thinning or scarring. 5 mm slightly spiculated stone in the lower pole of the right kidney. Hounsfield units measure 600. This is 12 cm from the mid axillary line. Mild right calyceal dilatation. The right renal pelvis does not appear dilated. Question urothelial thickening and irregularity are unremarkable of the right renal pelvis the right ureter is not opacified with excreted contrast. The left ureter is normal. BLADDER: Unremarkable. GASTROINTESTINAL TRACT: The small and large bowel are unremarkable. The appendix is unremarkable. ABDOMINAL WALL: No significant hernia is appreciated. LYMPH NODES: Normal. VASCULAR: Unremarkable. PELVIC VISCERA: Question small right pelvic cyst posterior to the uterus measuring 1 x 1.3 cm axial image 67 series 8. Uterus and adnexa are otherwise unremarkable. OSSEUS STRUCTURES: Degenerative changes of the spine and hip joints. CT/CT urogram IMPRESSION: Bilateral renal stones. 2 mm stone in the upper pole of the left kidney and 5 mm slightly spiculated stone in the lower pole of the right kidney. Small right kidney with renal cortical thinning or scarring. Mild right calyceal dilatation. The right renal pelvis does not appear dilated. Asymmetric excretion of contrast, decreased on the right compared to the left. Question underfilling and urothelial thickening of the right renal pelvis. Retrograde exam should be considered. The right ureter is not opacified with excreted contrast. Fatty liver.
[2022-05-21] MEDS: iohexoL 350 MG/ML 100 ML INFUS..BTL IV (10:46)
== END 2022-05-21 09:51 | disposition home or self-care (01) ==
LOC: HO.CT 09:50
PROVIDERS: Visit Provider Nurse Practitioner Family
DX: R31.29 Other microscopic hematuria (principal); N20.0 Calculus of kidney
CPT/HCPCS: 74178; Q9967

== ENCOUNTER → 2022-05-23 15:08 | Outpatient (BNVA) | payer MEDICARE, MEDICAID, SELFPAY | PROVIDERS: PCP Internal Medicine Geriatric Medicine; Referring Provider Internal Medicine Geriatric Medicine; Visit Provider Nurse Practitioner Family | DX: K58.2 Mixed irritable bowel syndrome (principal); Z80.0 Family history of malignant neoplasm of digestive organs | CPT/HCPCS: 99202 ==

== ENCOUNTER 2022-06-18 10:15 | Outpatient (REF) | payer MEDICARE, MEDICAID, SELFPAY ==
[2022-06-18 12:47] LABS: Free T4 (Free Thyroxine) 1.44 ng/dL (0.71-1.85); Thyroid Stimulating Hormone 0.19 uIU/mL (0.32-4.0)
[2022-06-18 12:56] LABS: Vitamin D 25-OH Total 32.7 ng/mL (>30)
[2022-06-20 08:59] LABS: Triiodothyronine T3 Total 143 ng/dL (76-181)
== END 2022-06-18 10:16 | disposition home or self-care (01) ==
LOC: HO.LAB 10:15
PROVIDERS: PCP Internal Medicine Geriatric Medicine; Visit Provider Internal Medicine
DX: E05.90 Thyrotoxicosis, unspecified without thyrotoxic crisis or storm (principal); E55.9 Vitamin D deficiency, unspecified
CPT/HCPCS: 36415; 82306; 84439; 84443; 84480

== ENCOUNTER → 2022-06-23 10:54 | Outpatient (BNVA) | payer MEDICARE, MEDICAID, SELFPAY | PROVIDERS: PCP Internal Medicine Geriatric Medicine; Visit Provider Internal Medicine | DX: E05.90 Thyrotoxicosis, unspecified without thyrotoxic crisis or storm (principal); E04.2 Nontoxic multinodular goiter | CPT/HCPCS: 99212 ==

== ENCOUNTER → 2022-06-25 09:53 | Outpatient (BNVA) | payer MEDICARE, MEDICAID, SELFPAY | PROVIDERS: PCP Internal Medicine Geriatric Medicine; Referring Provider Internal Medicine Geriatric Medicine; Visit Provider Nurse Practitioner Family | DX: Z12.11 Encounter for screening for malignant neoplasm of colon (principal); K58.2 Mixed irritable bowel syndrome; K21.9 Gastro-esophageal reflux disease without esophagitis | CPT/HCPCS: 99212 ==

== ENCOUNTER 2022-07-07 12:08 | Outpatient (REF) | payer MEDICARE, MEDICAID, SELFPAY ==
[2022-07-07 14:00] LABS: Free T4 (Free Thyroxine) 1.14 ng/dL (0.71-1.85)
[2022-07-09 00:58] LABS: Triiodothyronine T3 Total 134 ng/dL (76-181)
== END 2022-07-07 12:09 | disposition home or self-care (01) ==
LOC: HO.LAB 12:08
PROVIDERS: PCP Internal Medicine Geriatric Medicine; Visit Provider Internal Medicine
DX: E04.2 Nontoxic multinodular goiter (principal)
CPT/HCPCS: 36415; 84439; 84480

== ENCOUNTER 2022-07-10 10:27 | Outpatient (REF) | payer MEDICARE, MEDICAID, SELFPAY ==
--- NOTE | ~2022-07-10 | US_ITS ---
EXAMINATION: US THYROID CLINICAL INFORMATION: Nontoxic multinodular goiter. COMPARISON: Thyroid ultrasound 12/27/2020 and 03/06/2020. TECHNIQUE: Linear transducer grayscale and color Doppler examination with attention to the region of the thyroid. FINDINGS: SIZE: Measurements of the thyroid lobes and nodules are given in sagittal, anteroposterior and transverse dimensions respectively. Right Thyroid Lobe: 5.7 x 2.7 x 3.7 cm, volume 29.8 mL. Previously 5.6 x 3.1 x 3.6 cm, volume 32.7 mL. Parenchyma: The gland echotexture is heterogeneous. Thyroid vascularity is normal. Left Thyroid Lobe: 6.2 x 3.0 x 3.0 cm, volume 29.2 mL. Previously 5.7 x 1.9 x 2.8 cm, volume 15.9 mL. Parenchyma: The gland echotexture is heterogeneous. Thyroid vascularity is normal. Isthmus: 1.1 cm in maximum AP dimension. Previously 0.6 cm. Estimated total number of nodules greater than or equal to 1 cm: 3. 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 Location: Right lower pole. Size: 2.7 x 1.6 x 2.4 cm, volume 5.5 mL. Previously: 1.8 x 0.8 x 1.7 cm, volume 2.9 mL. Nodule characteristics: Composition: Solid/almost completely solid (2). Echogenicity: Hypoechoic (2). Shape: Not taller than wide (0). Margins: Ill-defined (0). Echogenic Foci: None (0). ACR TI-RADS total points: 4 Previous: 4 ACR TI-RADS category: 4 Previous: 4 Significant change in size (>/= 20% in 2 dimensions and minimal increase of 2 mm or 50% or greater increase in volume): Yes Change in features: No Change in ACR TI-RADS risk category: No 2. Location: Left lower pole. Size: 0.8 x 0.5 x 0.6 cm, volume 0.1 mL. Previously: Not documented. Nodule characteristics: Composition: Spongiform (0). ACR TI-RADS total points: 0 ACR TI-RADS category: 1 3. Location: Left lower pole. Size: 1.0 x 0.6 x 0.9 cm, volume 0.2 mL. Previously: 0.8 x 0.6 x 0.5 cm, volume 0.1 mL. Nodule characteristics: Composition: Spongiform (0). ACR TI-RADS total points: 0 Previous: 4 ACR TI-RADS category: 1 Previous: 4 Significant change in size (>/= 20% in 2 dimensions and minimal increase of 2 mm or 50% or greater increase in volume): No Change in features: No Change in ACR TI-RADS risk category: No 4. Location: Left lower pole. Size: 2.2 x 2.0 x 2.0 cm, volume 4.6 mL. Previously: Not documented. Nodule characteristics: Composition: Solid/almost completely solid (2). Echogenicity: Hypoechoic (2). Shape: Not taller than wide (0). Margins: Ill-defined (0). Echogenic Foci: None (0). ACR TI-RADS total points: 4 ACR TI-RADS category: 4 NODES: No lymphadenopathy is seen in the tissue surrounding the thyroid gland. US/US thyroid IMPRESSION: Right lower pole 2.7 cm and left lower pole 2.2 cm TI-RADS 4 nodules the ACR criteria for tissue sampling. TI RADS recommendations: TR 1: Benign. No follow-up or tissue sampling. TR 2: Not suspicious. No follow-up or tissue sampling. TR 3: Mildly suspicious. Recommend fine-needle aspiration if size greater than or equal to 2.5 cm; Follow up if greater than or equal to 1.5 cm at one, 3, and 5 years. TR 4: Moderately suspicious. Recommend fine-needle aspiration of size greater than or equal to 1.5 cm; recommend follow-up if size greater than equal to 1 cm at 1, 2, 3, and 5 years. TR 5: Highly suspicious. Recommend fine-needle aspiration if size greater than or equal to 1 cm; recommend follow-up if size greater than or equal to 0.5 cm annually for 5 years.
== END 2022-07-10 10:28 | disposition home or self-care (01) ==
LOC: HO.US 10:27
PROVIDERS: PCP Internal Medicine Geriatric Medicine; Visit Provider Internal Medicine
DX: E04.2 Nontoxic multinodular goiter (principal)
CPT/HCPCS: 76536

== ENCOUNTER 2022-07-16 10:20 | Day surgery (SDC) | payer MEDICARE, MEDICAID, SELFPAY ==
--- NOTE | 2022-07-15 14:18 | P.CONAN_ITS ---
Documented by User: Demetria Potter NP 07/15/22 14:21 HPI - Anesthesia Eval Consult details Narrative: 61yo F for Upper Endoscopy and Colonoscopy FOR[facility] Active Problems Active Problems: All Active Problems (Updated 07/11/22 @ 16:24 by Felipa Chacon, RN) MCKAY (obstructive sleep apnea) (Acute) Muscle spasm of back (Acute) Lumbar post-laminectomy syndrome (Acute) Lumbar radiculopathy (Acute) Lumbar spondylosis (Acute) Sacroiliac joint dysfunction of left side (Acute) CHF (congestive heart failure) (Acute) CAD (coronary artery disease) (Acute) Tobacco abuse (Acute) Increased anion gap metabolic acidosis (Acute) Pneumonia (Acute) COVID-19 (Acute) Diabetes (Acute) Hyperglycemia (Acute) Bilateral nephrolithiasis (Acute) Microscopic hematuria (Acute) Irritable bowel syndrome (Acute) Hyperthyroidism (Acute) Smoker (Acute) COPD exacerbation (Acute) Hypoxia (Acute) Lesion of bronchus (Acute) Tracheal anomaly (Acute) Multinodular goiter (Acute) Vitamin D deficiency (Acute) Atelectasis (Acute) Subclinical hyperthyroidism (Acute) Goiter (Acute) Pneumonia (Acute) Pulmonary nodules (Acute) COPD (chronic obstructive pulmonary disease) (Acute) Past Medical History Medical History (Updated 07/11/22 @ 16:24 by Felipa Chacon, HODA) Atelectasis COPD (chronic obstructive pulmonary disease) COPD exacerbation Diabetes Goiter Hyperthyroidism Hypoxia Irritable bowel syndrome Lesion of bronchus Multinodular goiter MCKAY (obstructive sleep apnea) Pneumonia Polycythemia Pulmonary nodules Smoker Subclinical hyperthyroidism Tracheal anomaly Vitamin D deficiency Family History Family History Father No problems noted. Mother No problems noted. Paternal Aunt Diabetes Family history of problems with anesthesia: No Surgical History Surgical History History of back surgery History of cholecystectomy History of tonsillectomy History of ureterostomy S/P lumpectomy, right breast History of Problems with Anesthesia: No Social History Social History Household Members: Significant Other Housing: House Do you presently have visiting nurse or other home services: No Alcohol intake: former Patient Tobacco Use Status: Current everyday Tobacco user Tobacco use type: Cigarette Cigarette Packs Per Day: 0.5 Cigarettes Per Day: 10.0 e-Cigarette/Vaping Use: Never Used Second Hand Smoke Exposure: Yes Substance Use Type: Marijuana Advance Directives: Yes Advance Directives on File: Yes Advance Directives Date on File: 01/24/21 service: No Current occupational status: disabled Meds Allergies Allergy/AdvReac Type Severity Reaction Status Date / Time HANK Inhibitors Allergy Severe ANGIO Verified 06/25/22 10:23 [HANK INHIBITORS] EDEMA enalapril Allergy Severe Anaphylaxis Verified 06/25/22 10:23 erythromycin base Allergy Severe HIVES ALL Verified 06/25/22 10:23 [ERYTHROMYCIN BASE] OVER hydromorphone [From DILAUDID] AdvReac Severe TINGLING, Verified 06/25/22 10:23 PT DOES NOT LIKE THE FEELING MED GIVES HER Home Medications Medication Instructions Recorded Confirmed Last Taken Type aspirin 81 mg tablet,delayed 81 mg PO DAILY 12/24/19 06/23/22 07/15/22 History release atorvastatin 80 mg tablet 80 mg PO BEDTIME 12/24/19 06/23/22 07/15/22 History carvedilol 6.25 mg tablet 6.25 mg PO BID 12/24/19 06/23/22 07/16/22 History cetirizine 10 mg tablet 10 mg PO DAILY 12/24/19 06/23/22 07/15/22 History montelukast 10 mg tablet 10 mg PO BEDTIME 12/24/19 06/23/22 01/23/21 09:30 History omeprazole 20 mg capsule,delayed 20 mg PO BID@0630,1630 12/24/19 06/23/22 01/23/21 09:30 History release ipratropium 20 mcg-albuterol 100 1 puff inhalation QID 01/02/20 06/23/22 07/15/22 History mcg/actuation mist for inhalation (Combivent Respimat) docusate sodium 100 mg capsule 1 cap PO BEDTIME PRN Constipation 01/24/21 06/23/22 07/13/22 History lidocaine 5 % topical cream 1 appl topical DAILY 01/24/21 06/23/22 Unknown History fluticasone propionate 50 2 spray intranasal DAILY 02/19/21 06/23/22 07/13/22 History mcg/actuation nasal spray,suspension dulaglutide 0.75 mg/0.5 mL 0.75 mg subcut REESE@1000 08/20/21 06/23/22 07/11/22 History subcutaneous pen injector (Trulicity) blood sugar diagnostic (FreeStyle #10 ea 10/07/21 06/23/22 07/16/22 History Lite Strips) gabapentin 300 mg capsule 300 mg PO TID 10/07/21 06/23/22 07/13/22 History lancets 33 gauge (TRUEplus Lancets) #100 ea 10/07/21 06/23/22 07/16/22 History naloxone 4 mg/actuation nasal spray 1 spray intranasal ONCE PRN Opioid 10/07/21 06/23/22 Unknown History Overdose cholecalciferol (vitamin D3) 50 2,000 mcg PO DAILY 11/02/21 06/23/22 07/10/22 History mcg (2,000 unit) capsule fluticasone fur. 100 mcg-umeclid 1 inh inhalation DAILY 11/02/21 06/23/22 07/16/22 History 62.5 mcg-vilant 25 mcg inhalat.powder (Trelegy Ellipta) insulin lispro 100 unit/mL 6 - 10 unit subcut TIDAC 11/02/21 06/23/22 07/14/22 History subcutaneous pen (Humalog KwikPen (U-100) Insulin) ipratropium 0.5 mg-albuterol 3 mg 3 ml inhalation QID PRN 11/02/21 06/23/22 07/16/22 History (2.5 mg base)/3 mL nebulization Respiratory Distress soln roflumilast 500 mcg tablet 500 mcg PO DAILY 11/02/21 06/23/22 07/16/22 History (Daliresp) oxycodone-acetaminophen 7.5 mg-325 1 tab PO Q6H PRN severe pain 06/23/2206/2307/16/22 History mg tablet roflumilast 500 mcg tablet 500 mcg PO DAILY 07/16/22 07/16/22 Unknown History Exam Exam Date and Time: July 15, 2022 141 Pertinent Lab Results Pertinent Lab Results: Laboratory Tests 02/10/22 02/10/22 05/19/22 05:39 05:39 13:31 WBC 12.1 H Hgb 16.3 H Hct 49.1 H Plt Count 252 Sodium 143 Potassium 4.9 Chloride 106 Carbon Dioxide 23 BUN 16 Creatinine 0.79 Narrative Narrative: EKG 01/2022 (with COPD exac) Vent. Rate : 095 BPM ? ? Atrial Rate : 095 BPM ?? P-R Int : 142 ms? QRS Dur : 088 ms ? ? QT Int : 354 ms ? ? ? P-R-T Axes : 058 -43 037 degrees ?? QTc Int : 444 ms ? Normal sinus rhythm Left anterior fascicular block RSR' or QR pattern in V1 suggests right ventricular conduction delay Low voltage QRS Abnormal ECG When compared with ECG of 01-NOV-2021 20:24, No significant changes seen Assessment and Plan Assessment Anesthesia Assessment: Chart Reviewed Final Anesthetic Review Family History of Problems with Anesthesia: No History of Problems with Anesthesia: No Documented by User: Kolton Rasmussen MD 07/16/22 12:44 HPI - Anesthesia Eval Consult details Narrative: 61yo F for Upper Endoscopy and Colonoscopy CAD: Stent about 5 yrs ago. No CP. Echo 2019: LVEF 50-55%, w RWMAs. RV normal sz and fxn. Normal RAP. PMFSH Past Medical History Medical History (Updated 07/11/22 @ 16:24 by Felipa Chacon RN) Atelectasis COPD (chronic obstructive pulmonary disease) COPD exacerbation Diabetes Goiter Hyperthyroidism Hypoxia Irritable bowel syndrome Lesion of bronchus Multinodular goiter MCKAY (obstructive sleep apnea) Pneumonia Polycythemia Pulmonary nodules Smoker Subclinical hyperthyroidism Tracheal anomaly Vitamin D deficiency Family History Family History Father No problems noted. Mother No problems noted. Paternal Aunt Diabetes Surgical History Surgical History History of back surgery History of cholecystectomy History of tonsillectomy History of ureterostomy S/P lumpectomy, right breast Social History Social History Household Members: Significant Other Housing: House Do you presently have visiting nurse or other home services: No Alcohol intake: former Patient Tobacco Use Status: Current everyday Tobacco user Tobacco use type: Cigarette Cigarette Packs Per Day: 0.5 Cigarettes Per Day: 10.0 e-Cigarette/Vaping Use: Never Used Second Hand Smoke Exposure: Yes Substance Use Type: Marijuana Advance Directives: Yes Advance Directives on File: Yes Advance Directives Date on File: 01/24/21 service: No Current occupational status: disabled Meds Allergies Allergy/AdvReac Type Severity Reaction Status Date / Time HANK Inhibitors Allergy Severe ANGIO Verified 06/25/22 10:23 [HANK INHIBITORS] EDEMA enalapril Allergy Severe Anaphylaxis Verified 06/25/22 10:23 erythromycin base Allergy Severe HIVES ALL Verified 06/25/22 10:23 [ERYTHROMYCIN BASE] OVER hydromorphone [From DILAUDID] AdvReac Severe TINGLING, Verified 06/25/22 10:23 PT DOES NOT LIKE THE FEELING MED GIVES HER Home Medications Medication Instructions Recorded Confirmed Last Taken Type aspirin 81 mg tablet,delayed 81 mg PO DAILY 12/24/19 06/23/22 07/15/22 History release atorvastatin 80 mg tablet 80 mg PO BEDTIME 12/24/19 06/23/22 07/15/22 History carvedilol 6.25 mg tablet 6.25 mg PO BID 12/24/19 06/23/22 07/16/22 History cetirizine 10 mg tablet 10 mg PO DAILY 12/24/19 06/23/22 07/15/22 History montelukast 10 mg tablet 10 mg PO BEDTIME 12/24/19 06/23/22 01/23/21 09:30 History omeprazole 20 mg capsule,delayed 20 mg PO BID@0630,1630 12/24/19 06/23/22 01/23/21 09:30 History release ipratropium 20 mcg-albuterol 100 1 puff inhalation QID 01/02/20 06/23/22 07/15/22 History mcg/actuation mist for inhalation (Combivent Respimat) docusate sodium 100 mg capsule 1 cap PO BEDTIME PRN Constipation 01/24/21 06/23/22 07/13/22 History lidocaine 5 % topical cream 1 appl topical DAILY 10/28/21 03/27/23 Unknown History fluticasone propionate 50 2 spray intranasal DAILY 02/19/21 06/23/22 07/13/22 History mcg/actuation nasal spray,suspension dulaglutide 0.75 mg/0.5 mL 0.75 mg subcut REESE@1000 08/20/21 06/23/22 07/11/22 History subcutaneous pen injector (Trulicity) blood sugar diagnostic (FreeStyle #10 ea 10/07/21 06/23/22 07/16/22 History Lite Strips) gabapentin 300 mg capsule 300 mg PO TID 10/07/21 06/23/22 07/13/22 History lancets 33 gauge (TRUEplus Lancets) #100 ea 10/07/21 06/23/22 07/16/22 History naloxone 4 mg/actuation nasal spray 1 spray intranasal ONCE PRN Opioid 10/07/21 06/23/22 Unknown History Overdose cholecalciferol (vitamin D3) 50 2,000 mcg PO DAILY 11/02/21 06/23/22 07/10/22 History mcg (2,000 unit) capsule fluticasone fur. 100 mcg-umeclid 1 inh inhalation DAILY 11/02/21 06/23/22 07/16/22 History 62.5 mcg-vilant 25 mcg inhalat.powder (Trelegy Ellipta) insulin lispro 100 unit/mL 6 - 10 unit subcut TIDAC 11/02/21 06/23/22 07/14/22 History subcutaneous pen (Humalog KwikPen (U-100) Insulin) ipratropium 0.5 mg-albuterol 3 mg 3 ml inhalation QID PRN 11/02/21 06/23/22 07/16/22 History (2.5 mg base)/3 mL nebulization Respiratory Distress soln roflumilast 500 mcg tablet 500 mcg PO DAILY 11/02/21 06/23/22 07/16/22 History (Daliresp) oxycodone-acetaminophen 7.5 mg-325 1 tab PO Q6H PRN severe pain 06/23/22 06/23/22 07/16/22 History mg tablet roflumilast 500 mcg tablet 500 mcg PO DAILY 07/16/22 07/16/22 Unknown History Exam Airway Mallampati Class: I TM Dist: <=3cm Neck ROM: Full Denture: Upper and Lower Heart: ok. see above. Lungs: ok. see pmhx. last hospitalized in Nov, for covid. Assessment and Plan Assessment Anesthesia Assessment: Anesthesia Plan Discussed Final Anesthetic Review NPO: Yes ASA Class: IV Final Preanesthetic Review: No Changes in Pt Med Stat, Meds/Allgs Chart Reviewed, Consent Obtained/Reviewed and Anes Risks/Benef Reviewed Patient Risk: High Procedure Risk: Intermediate Anesthetic Plan Anesthetic Plan: MAC: and Agree w/ Assess. and Plan Disposition: Standard PACU
[2022-07-16 08:49] VITALS: BMI 27.3
[2022-07-16 10:22] VITALS: BP 124/70; PULSE 91; RESP 18; TEMP 36.3; O2SAT 94
[2022-07-16 10:33] LABS: Glucose, Whole Blood 181 mg/dL (60-115)
--- NOTE | 2022-07-16 10:37 | P.HPSUR_ITS ---
Pre-Procedural Eval Section A Date of Service: 07/16/22 Section B Chief Complaint: Irritable bowel syndrome without diarrhea,reflux Details of Present Illness: brother crc aged 40 Relevant Family History (Specify if Yes): Yes Relevant Social History: Tobacco Use Present Medications: see Short Stay Collaborative assessment Medical History: Significant History (Atelectasis COPD (chronic obstructive pulmonary disease) COPD exacerbation Goiter Hyperthyroidism Hypoxia Irritable bowel syndrome Lesion of bronchus Multinodular goiter Pneumonia Polycythemia Pulmonary nodules Smoker Subclinical hyperthyroidism Tracheal anomaly Vitamin D deficiency) History of Previous Operations: Relevant previous surgery/procedure and date(s) (History of back surgery History of cholecystectomy History of tonsillectomy History of ureterostomy S/P lumpectomy, right breast) Allergies: Allergies Allergy/AdvReac Type Severity Reaction Status Date / Time HANK Inhibitors Allergy Severe ANGIO Verified 06/25/22 10:23 [HANK INHIBITORS] EDEMA enalapril Allergy Severe Anaphylaxis Verified 06/25/22 10:23 erythromycin base Allergy Severe HIVES ALL Verified 06/25/22 10:23 [ERYTHROMYCIN BASE] OVER hydromorphone [From DILAUDID] AdvReac Severe TINGLING, Verified 06/25/22 10:23 PT DOES NOT LIKE THE FEELING MED GIVES HER Review of Systems Sugical H&P ROS: Negative: Constitution, Cardiovascular, Respiratory, Ne urological, Psychiatric, Hem-Onc, Allergic/Immunologic, Gastrointestinal, Genitourinary, Musculoskeletal, Integumentary, Endocrine and Eyes/Ears/Nose/Throat Exam Surgical H&P Exam: Normal: HEENT, Normal: Heart, Normal: Lungs, Normal: Extremities, Normal: Abdomen, Normal: Skin and Normal: Neurological Plan Diagnosis/Plan: Unchanged I have reviewed the history and physical and performed a pertinent physical examination on my patient. No changes have occurred unless specified. Time Spent With Patient Time: Total time managing care of this patient today ____ minutes.
[2022-07-16] MEDS: Lactated Ringers 1,000 ML 100 ML IVCONT (10:47)
--- NOTE | 2022-07-16 12:11 | W.PM.OPN ---
Operative Note Operative Note Date of Service: 07/16/22 Narrative: Operative Information Procedure Description: EGD, Colonoscopy Indication: hx of esophagitis, Anesthesia: MAC FLEXIBLE TRANSORAL UPPER GASTROINTESTINAL ENDOSCOPY AND COLONOSCOPY PROCEDURE NOTE UPPER ENDOSCOPY Consent: Indications for the procedure and potential complications of bleeding, perforation, reaction to medications and missed diagnosis were discussed with the patient and informed consent was obtained. Instrument: Olympus GIF H 190 J mid size upper endoscope Monitoring: Vital signs and clinical assessment, continuous EKG monitoring, Pulse oximetry, Carbon Dioxide monitoring and blood pressure monitoring were done throughout the procedure. Procedure: The patient was placed in the left lateral decubitis position and pre-procedure medications were administered and a bite block was placed. The endoscope was inserted into the mouth and advanced under direct vision to the third part of duodenum. A careful inspection was made as the upper endoscope was withdrawn including a retroflexed examination of the proximal stomach; Findings and interventions are described below. Findings: Larynx:normal Esophagus: GE junction at 42 cm, diaphragm hiatus at 42 cm, mild esophagitis at GEJ Stomach: Granular mucosa with patchy erythema. Biopsies were obtained. Grade 2 flap valve on retroflexed examination of the cardia. In the antrum a polypoid lesion noted measuring about 12-14 mm, lifted with eleview and then removed with hot snare and retrieved with a net. 2 clips applied for hemostasis but before this edges were ablated. Duodenum: Normal bulb and descending duodenum, Intervention: Biopsies as noted above, polypectomy and EMR COLONOSCOPY Instrument: Olympus variable stiffness pediatric scope 190L Colonoscopy Monitoring: Vital signs and clinical assessment, continuous EKG monitoring, Pulse oximetry, Carbon Dioxide monitoring and blood pressure monitoring were done throughout the procedure. Colon withdrawal time was 13 minutes. Procedure: The patient was placed in the left lateral decubitis position and pre-procedure medications were administered. After a digital rectal examination of the ano-rectum, the video colonoscope was inserted into the rectum and advanced through the colon to the cecum/TI. The colonoscope was slowly withdrawn in a retrograde panoramic fashion and the colon mucosa was carefully examined including a retroflexed view of the rectum. Findings and interventions are described below. Procedure Difficulty:moderate Findings: Terminal Ileum-not intubated due to looping Cecum: diverticula noted, x1 sessile polyp 10 mm removed with cold snare Ascending Colon: normal, there was a 15 mm lipoma noted Transverse Colon -normal Descending Colon:normal Sigmoid Colon: moderate diverticulosis noted, 12-13 mm semi pedunculated polyp noted and removed with cold snare with edges ablated with soft tip coag and then x1 clip for hemostasis. Rectum: Retroflexion with small internal hemorrhoids, grade I with skin tags Anorectum - normal Colon preparation: [place] Bowel Preparation Scale Right colon; 2 Transverse colon: 2 Left colon; 1-2 (0 = Unprepared colon segment with mucosa not seen due to solid stool that cannot be cleared. 1 = Portion of mucosa of the colon segment seen, but other areas of the colon segment not well seen due to staining, residual stool and/or opaque liquid. 2 = Minor amount of residual staining, small fragments of stool and/or opaque liquid, but mucosa of colon segment seen well. 3 = Entire mucosa of colon segment seen well with no residual staining, small fragments of stool or opaque liquid) Impression and Post Procedure Diagnosis: Endoscopy Findings: gastric polyp gastritis Colonoscopy Findings: polyps internal hemorrhoids diverticular disease Plan: Await Pathology results Repeat Colonoscopy in 2-3 years due to fair left sided prep or earlier if clinically indicated High fiber diet leaflet avoid straining at stool, epsom salts and sitz bath, anusol supps or cream repeat EGD depending on polyp path Above findings were reviewed with the patient and relevant handouts were provided if indicated.
[2022-07-16 13:30] VITALS: BP 111/62; PULSE 75; RESP 17; TEMP 36.1; O2SAT 95
[2022-07-16 13:45] VITALS: BP 129/60; PULSE 76; RESP 16; TEMP 36.1; O2SAT 94
== END 2022-07-16 14:57 | disposition home or self-care (01) ==
PROVIDERS: PCP Internal Medicine Geriatric Medicine; Visit Provider Internal Medicine Gastroenterology
PROC: (CPT 45385; principal; 2022-07-16 12:40)
DX: K58.9 Irritable bowel syndrome, unspecified (principal); Z80.0 Family history of malignant neoplasm of digestive organs; D12.0 Benign neoplasm of cecum; D12.5 Benign neoplasm of sigmoid colon; K57.30 Diverticulosis of large intestine without perforation or abscess without bleeding; D17.5 Benign lipomatous neoplasm of intra-abdominal organs; K64.0 First degree hemorrhoids; K64.4 Residual hemorrhoidal skin tags; K21.9 Gastro-esophageal reflux disease without esophagitis; K29.50 Unspecified chronic gastritis without bleeding; K31.7 Polyp of stomach and duodenum; K20.80 Other esophagitis without bleeding; K44.9 Diaphragmatic hernia without obstruction or gangrene; D75.1 Secondary polycythemia; J44.9 Chronic obstructive pulmonary disease, unspecified; J98.11 Atelectasis; R91.8 Other nonspecific abnormal finding of lung field; R09.02 Hypoxemia; E55.9 Vitamin D deficiency, unspecified; E05.90 Thyrotoxicosis, unspecified without thyrotoxic crisis or storm; E11.9 Type 2 diabetes mellitus without complications; Z79.4 Long term (current) use of insulin; Z79.51 Long term (current) use of inhaled steroids; Z79.82 Long term (current) use of aspirin; Z79.899 Other long term (current) drug therapy; Z88.1 Allergy status to other antibiotic agents; Z88.8 Allergy status to other drugs, medicaments and biological substances; Z90.49 Acquired absence of other specified parts of digestive tract; F17.210 Nicotine dependence, cigarettes, uncomplicated
CPT/HCPCS: 45385; 43251; 43239; 82947; 88305; 88342; J3010

== ENCOUNTER → 2022-07-25 09:39 | Outpatient (BNVA) | payer MEDICARE, MEDICAID, SELFPAY | PROVIDERS: PCP Internal Medicine Geriatric Medicine; Visit Provider Hospitalist | DX: J44.9 Chronic obstructive pulmonary disease, unspecified (principal); J98.11 Atelectasis; J98.09 Other diseases of bronchus, not elsewhere classified; G47.33 Obstructive sleep apnea (adult) (pediatric); R91.8 Other nonspecific abnormal finding of lung field | CPT/HCPCS: 99212 ==

== ENCOUNTER → 2022-08-06 09:42 | Outpatient (BNVA) | payer MEDICARE, MEDICAID, SELFPAY | PROVIDERS: PCP Internal Medicine Geriatric Medicine; Visit Provider Nurse Practitioner Family | DX: N20.0 Calculus of kidney (principal) | CPT/HCPCS: 99212 ==

== ENCOUNTER → 2022-08-15 08:52 | Outpatient (BNVA) | payer MEDICARE, MEDICAID, SELFPAY | PROVIDERS: PCP Internal Medicine Geriatric Medicine; Visit Provider Nurse Practitioner Family | DX: K58.2 Mixed irritable bowel syndrome (principal); K21.9 Gastro-esophageal reflux disease without esophagitis; D36.9 Benign neoplasm, unspecified site; Z98.890 Other specified postprocedural states | CPT/HCPCS: 99212 ==

== ENCOUNTER → 2022-09-12 10:16 | Outpatient (BNVA) | payer MEDICARE, MEDICAID, SELFPAY | PROVIDERS: PCP Internal Medicine Geriatric Medicine; Visit Provider Nurse Practitioner Family | DX: E11.40 Type 2 diabetes mellitus with diabetic neuropathy, unspecified (principal); M96.1 Postlaminectomy syndrome, not elsewhere classified; M54.16 Radiculopathy, lumbar region; M62.830 Muscle spasm of back; M47.816 Spondylosis without myelopathy or radiculopathy, lumbar region; M53.3 Sacrococcygeal disorders, not elsewhere classified | CPT/HCPCS: 99212 ==

== ENCOUNTER → 2022-09-25 11:56 | Outpatient (BNVA) | payer MEDICARE, MEDICAID, SELFPAY | PROVIDERS: PCP Internal Medicine Geriatric Medicine; Visit Provider Internal Medicine ==

== ENCOUNTER 2022-09-26 04:56 | Emergency (ER) | payer MEDICARE, MEDICAID, SELFPAY ==
--- NOTE | ~2022-09-26 | XR_ITS ---
EXAMINATION: XR WRIST, RIGHT CLINICAL INFORMATION: Fall, pain COMPARISON: None available. TECHNIQUE: PA, lateral, and oblique views of the right wrist. FINDINGS: Osseous alignment is anatomic. No acute fracture is seen. Mild degenerative changes are present in the wrist. Soft tissue swelling noted. XR/XR wrist RT min 3V IMPRESSION: Soft tissue swelling without acute osseous findings.
--- NOTE | ~2022-09-26 | XR_ITS ---
EXAMINATION: XR ELBOW, RIGHT CLINICAL INFORMATION: Fall, swelling, pain COMPARISON: None available. TECHNIQUE: AP, lateral, and oblique views of the right elbow. FINDINGS: Osseous alignment is anatomic. There is subtle focal contour deformity of the radial head on the lateral view, for which a nondisplaced fracture cannot be excluded. Joint effusion is noted. XR/XR elbow RT min 3V IMPRESSION: Joint effusion with subtle contour deformity of the radial head, for which a nondisplaced fracture cannot be excluded.
--- NOTE | ~2022-09-26 | XR_ITS ---
EXAMINATION: XR FOOT, RIGHT CLINICAL INFORMATION: Fall COMPARISON: None available. TECHNIQUE: AP, lateral, and oblique views of the right foot. FINDINGS: Osseous alignment is anatomic. There is cortical irregularity at the neck of the third metatarsal, suspicious for acute fracture. No additional focal osseous abnormality is seen. Posterior calcaneal spur noted. Mild degenerative change at the tarsometatarsal joints. No significant soft tissue swelling. XR/XR foot RT 2V IMPRESSION: Cortical irregularity at the neck of the third metatarsal, suspicious for acute fracture.
--- NOTE | ~2022-09-26 | XR_ITS ---
EXAMINATION: XR SHOULDER, RIGHT CLINICAL INFORMATION: Fall COMPARISON: None available. TECHNIQUE: Three views of the right shoulder. FINDINGS: Glenohumeral alignment is anatomic. There is mild deformity of the right humeral neck, more suggestive of sequelae of healed old fracture. No acute fracture is seen. Acromioclavicular joint is intact. XR/XR shoulder RT min 2V IMPRESSION: Mild right humeral neck deformity, more suggestive of sequelae of healed old fracture.
[2022-09-26 05:00] VITALS: BP 132/70; PULSE 86; RESP 18; TEMP 36; O2SAT 92; BMI 26.6
--- NOTE | 2022-09-26 05:41 | PC.NURSE ---
Pt presents for evaluation of right arm pain and right ankle pain s/p trip and fall on the sidewalk outside. Pt denies LOC. No head, neck, or back pain. Denies any chest pain, abd pain, and shortness of breath. No headache or dizziness, no visual disturbances, and no nausea/vomiting. CSMs are intact. Took percocet at home at midnight. Last tetanus unknown.
--- NOTE | 2022-09-26 05:46 | ED_ITS ---
HPI - Fall General Chief Complaint: Fall Stated Complaint: Broken Right Arm? Time Seen by Provider: 09/26/22 05:37 Source: patient Mode of arrival: wheelchair Limitations: no limitations History of Present Illness HPI Narrative: Patient comes to the emergency room complaining of right upper and lower extremity pain. Patient states that yesterday she tripped over a concrete pad that has been lifted by tree branches. Patient states that she landed on her right arm. Patient was able to protect her head from injury. Patient denies hitting her head or losing consciousness, denies neck pain. Denies being on bl ood thinners. Patient also complaining of pain in the dorsum of the right foot. Denies ankle sprain. No pain on the left upper or lower extremities. No hip pain. Related Data Home Medications Medication Instructions Recorded Confirmed aspirin 81 mg tablet,delayed 81 mg PO DAILY 12/24/19 09/25/22 release atorvastatin 80 mg tablet 80 mg PO BEDTIME 12/24/19 09/25/22 carvedilol 6.25 mg tablet 6.25 mg PO BID 12/24/19 09/25/22 cetirizine 10 mg tablet 10 mg PO DAILY 12/24/19 09/25/22 montelukast 10 mg tablet 10 mg PO BEDTIME 12/24/19 09/25/22 omeprazole 20 mg capsule,delayed 20 mg PO BID@0630,1630 12/24/19 09/25/22 release ipratropium 20 mcg-albuterol 100 1 puff inhalation QID 01/02/20 09/25/22 mcg/actuation mist for inhalation (Combivent Respimat) docusate sodium 100 mg capsule 1 cap PO BEDTIME PRN Constipation 01/24/21 09/25/22 lidocaine 5 % topical cream 1 appl topical DAILY 01/24/21 09/25/22 blood sugar diagnostic (FreeStyle #10 ea 10/07/21 09/25/22 Lite Strips) lancets 33 gauge (TRUEplus Lancets) #100 ea 10/07/21 09/25/22 naloxone 4 mg/actuation nasal spray 1 spray intranasal ONCE PRN Opioid 10/07/21 09/25/22 Overdose insulin lispro 100 unit/mL 6 - 10 unit subcut TIDAC 11/02/21 09/25/22 subcutaneous pen (Humalog KwikPen (U-100) Insulin) ipratropium 0.5 mg-albuterol 3 mg 3 ml inhalation QID PRN 11/02/21 09/25/22 (2.5 mg base)/3 mL nebulization Respiratory Distress soln oxycodone-acetaminophen 7.5 mg-325 1 tab PO Q6H PRN severe pain 06/23/22 09/25/22 mg tablet fluticasone propionate 50 2 spray intranasal DAILY PRN 07/25/22 09/25/22 mcg/actuation nasal spray,suspension prednisone 10 mg tablet 0 mg PO 07/25/22 09/25/22 dulaglutide 1.5 mg/0.5 mL mg subcut 08/06/22 09/25/22 subcutaneous pen injector (Tr[employer] [facility]) Previous Rx's Medication Instructions Recorded insulin glargine 100 unit/mL (3 30 unit (0.3 mL) subcut BID #15 mL 02/12/22 mL) subcutaneous pen (Lantus Solostar U-100 Insulin) methimazole 5 mg tablet 10 mg PO DAILY 30 days #60 tabs 06/23/22 Ventolin HFA 90 mcg/actuation 2 puff PO Q4-6H PRN for wheezing 07/16/22 aerosol inhaler (albuterol sulfate) #18 grams pyridoxine (vitamin B6) 100 mg 100 mg PO DAILY 90 days #90 tabs 08/06/22 tablet roflumilast 500 mcg tablet 500 mcg PO DAILY #30 tabs 08/14/22 Trelegy Ellipta 100 mcg-62.5 1 ea inhalation DAILY #60 ea 09/03/22 mcg-25 mcg powder for inhalation (yclvetsmtqx-zterslfqp-qheyinxn) benfotiamine 150 mg capsule 150 mg PO BID diabetic neuropathy 09/12/22 30 days #60 caps cholecalciferol (vitamin D3) 50 50 mcg PO DAILY 90 days #90 caps 09/12/22 mcg (2,000 unit) capsule methocarbamol 750 mg tablet 750 mg PO Q8H PRN for muscle spasm 09/12/22 30 days #90 tabs pregabalin 75 mg capsule 75 mg PO BID pain 30 days #60 caps 09/12/22 prednisone 5 mg tablet 5 mg PO DAILY 30 days #30 tabs 09/23/22 lidocaine-prilocaine 2.5 %-2.5 % 1 appl topical ONCE pain #30 grams 09/24/22 topical cream Allergies Allergy/AdvReac Type Severity Reaction Status Date / Time HANK Inhibitors Allergy Severe ANGIO Verified 09/26/22 05:04 [HANK INHIBITORS] EDEMA enalapril Allergy Severe Anaphylaxis Verified 09/26/22 05:04 erythromycin base Allergy Severe HIVES ALL Verified 09/26/22 05:04 [ERYTHROMYCIN BASE] OVER hydromorphone [From DILAUDID] AdvReac Severe TINGLING, Verified 09/26/22 05:04 PT DOES NOT LIKE THE FEELING MED GIVES HER Review of Systems Review of Systems: Constitutional : No Weight loss, No Fever, No Chills, No Night Sweats, No Fatigue, No Malaise ENT/Mouth : No Hearing loss, No Ear Pain, No Nasal Congestion, No Sinus Pain, No Hoarseness, No sore throat, No Rhinorrhea, No Swallowing Difficulty Eyes: No Eye Pain, No Swelling, No Redness, No Foreign Body, No Discharge, No Vision Changes Cardiovascular : No Chest Pain, No SOB, No Dyspnea on Exertion, No Orthopnea, No Edema, No Palpitations Respiratory : No Cough, No Sputum, No Wheezing, No Smoke Exposure, No Dyspnea Gastrointestinal : No Nausea, No Vomiting, No Diarrhea, No Constipation, No abdominal Pain, No Hematochezia, No Melena Genitourinary : no irregular bleeding, No Dysuria, No Urinary Frequency, No Hematuria, No Urinary Incontinence, No Urgency, No Flank Pain, No Urinary Flow Changes, No Hesitancy Musculoskeletal : Complaining of right shoulder/elbow/wrist pain, complaining of pain in the dorsum of the right foot, No Myalgias, No Joint Swelling Skin : Minor abrasion on the foot of the left Neuro : No Weakness, No Numbness, No Paresthesias, No Loss of Consciousness, No Dizziness, No Headache Psych : No Anxiety/Panic, No Depression, No SI/HI/AH/VH, No Social Issues, Heme/Lymph: No Bruising, No Bleeding,No Lymphadenopathy Endocrine : No Polyuria, No Polydipsia, No Temperature Intolerance PMFSH Past Medical History Medical History Atelectasis COPD (chronic obstructive pulmonary disease) COPD exacerbation Diabetes Goiter Hyperthyroidism Hypoxia Irritable bowel syndrome Lesion of bronchus Multinodular goiter MCKAY (obstructive sleep apnea) Pneumonia Polycythemia Pulmonary nodules Smoker Subclinical hyperthyroidism Tracheal anomaly Tubular adenoma Vitamin D deficiency Surgical History History of back surgery History of cholecystectomy History of esophagogastroduodenoscopy (EGD) History of tonsillectomy History of ureterostomy Hx of colonoscopy S/P lumpectomy, right breast Family History Family History Father No problems noted. Mother No problems noted. Paternal Aunt Diabetes Social History Social History Household Members: Significant Other Housing: House Do you presently have visiting nurse or other home services: No Alcohol intake: former Patient Tobacco Use Status: Current everyday Tobacco user Tobacco use type: Cigarette Cigarette Packs Per Day: 0.5 Cigarettes Per Day: 10.0 e-Cigarette/Vaping Use: Never Used Second Hand Smoke Exposure: Yes Substance Use Type: Marijuana Advance Directives: Yes Advance Directives on File: Yes Advance Directives Date on File: 01/24/21 Patient : No service: No Current occupational status: disabled Physical Exam Vital Signs: Vital Signs: Last Vital Signs Temp 96.8 F 09/26/22 05:00 Pulse 86 09/26/22 05:00 Resp 18 09/26/22 05:00 BP 132/70 09/26/22 05:00 Pulse Ox 92 09/26/22 05:00 O2 Del Method Room Air 09/26/22 05:00 BMI result Body Mass Index 26.6 Const: Other: Appearance: Alert. Oriented X3. No acute distress. Eyes: Pupils equal, round and reactive to light. ENT: Pharynx normal. Neck: Normal inspection. Neck supple. No lymph nodes noted. No crepitus CVS: Normal heart rate and rhythm. Pulses normal. Normal S1 and S2 Respiratory: No respiratory distress. Breath sounds normal. No Wheezing. No rales Abdomen: Soft and nontender. No rigidity. No distention. Skin: Skin warm and dry. Ecchymosis to the dorsum of the foot, mild abrasion to the toes of the left foot Extremities: No lower extremity edema. Patient able to abduct the left arm, patient complaining of pain around the right wrist, unable to flex or extend the elbow or wrist. Patient able to open and close all fingers of the hand. Neuro: Oriented X 3. No motor deficit. No sensory deficit. Moving all extremities. No slurred speech. CN 2 through 12 grossly intact Psych: calm, cooperative, normal affect Course Course Course Narrative: -all of patient's x-rays are pending. -At this time, patient declined pain medication. Patient states that she takes Percocet at home and took a dose at approximately 04:00 hours ago Medical Decision Making Medical Decision Making MDM Narrative: -my interpretation of x-ray of the right elbow: Positive sail sign, patient likely has an ulnar head fracture -my interpretation of x-ray of the foot, no obvious fracture. However, Radiology report shows cortical irregularity at the neck of the 3rd metatarsal, suspicious for acute fracture -I discussed the x-ray findings with the patient. Patient's right arm is in a posterior long arm and the right foot is in an air cast. Patient would not be able to handle crutches -please management and physical therapy were offered to the patient, she declined. Patient would like to go home. -usually, patient takes Percocet 7.5 mg, I offered to the patient in mg here in the emergency room Differential Diagnosis Differential Diagnoses: The differential diagnosis associated with the presentation includes (Contusion, fracture, dislocation) Radiology Impression Discussion of test interpretation with radiology: I have reviewed the radiologist's reading. Radiologist Impression: FINDINGS: Osseous alignment is anatomic. No acute fracture is seen. Mild degenerative changes are present in the wrist. Soft tissue swelling noted.? XR/XR wrist RT min 3V IMPRESSION: Soft tissue swelling without acute osseous findings. ? FINDINGS: Glenohumeral alignment is anatomic. There is mild deformity of the right humeral neck, more suggestive of sequelae of healed old fracture. No acute fracture is seen. Acromioclavicular joint is intact.? XR/XR shoulder RT min 2V IMPRESSION: Mild right humeral neck deformity, more suggestive of sequelae of healed old fracture. FINDINGS: Osseous alignment is anatomic. There is cortical irregularity at the neck of the third metatarsal, suspicious for acute fracture. No additional focal osseous abnormality is seen. Posterior calcaneal spur noted. Mild degenerative change at the tarsometatarsal joints. No significant soft tissue swelling.? XR/XR foot RT 2V IMPRESSION: Cortical irregularity at the neck of the third metatarsal, suspicious for acute fracture. FINDINGS: Osseous alignment is anatomic. There is subtle focal contour deformity of the radial head on the lateral view, for which a nondisplaced fracture cannot be excluded. Joint effusion is noted.? XR/XR elbow RT min 3V IMPRESSION: Joint effusion with subtle contour deformity of the radial head, for which a nondisplaced fracture cannot be excluded. Discharge Plan Discharge Clinical Impression: Fracture, radius, head, Fracture of third metatarsal bone Patient Disposition: Home, Self-Care Instructions: Foot Fracture in Adults (ED), Elbow Fracture (ED) Additional Instructions: Please follow-up with your primary care physician tomorrow. If you have any worsening or new symptoms, please return to the emergency room or call 911 Prescriptions: No Action albuterol sulfate [Ventolin HFA] 90 mcg/actuation HFA aerosol inhaler 2 puff PO Q4-6H PRN (Reason: for wheezing) Qty: 18 11RF roflumilast 500 mcg tablet 500 mcg PO DAILY Qty: 30 11RF Trelegy Ellipta 100-62.5-25 mcg blister with device 1 ea inhalation DAILY Qty: 60 3RF benfotiamine 150 mg capsule 150 mg PO BID 30 Days Qty: 60 1RF prednisone 5 mg tablet 5 mg PO DAILY 30 Days Qty: 30 0RF lidocaine-prilocaine 2.5-2.5 % cream 1 appl topical ONCE Qty: 30 1RF Rx Instructions: Apply 15-30 min prior to [place]utenza on 10/06/22 lidocaine 5 % cream 1 appl topical DAILY Protocol: Apply to: Apply to: BACK,CALF,TOP OF FOOT docusate sodium 100 mg capsule 1 cap PO BEDTIME PRN (Reason: Constipation) insulin glargine [Lantus Solostar U-100 Insulin] 100 unit/mL (3 mL) Insulin Pen 30 unit SUBCUT BID Qty: 15 0RF Rx Instructions: PER PATIENT, MAY REQUIRE HIGHER DOSES WHEN ON STEROIDS insulin lispro [Humalog KwikPen Insulin] 100 unit/mL Insulin Pen 6 - 10 unit SUBCUT TIDAC Rx Instructions: 6 TO 10 UNITS BEFORE MEALS, PER PATIENT MAY REQUIRE HIGHER DOSES WHEN ON STEROIDS ipratropium-albuterol 0.5 mg-3 mg(2.5 mg base)/3 mL solution for nebulization 3 ml inhalation QID PRN (Reason: Respiratory Distress) Combivent Respimat 20-100 mcg/actuation mist 1 puff inhalation QID Rx Instructions: space evenly during waking hours omeprazole 20 mg capsule,delayed release(DR/EC) 20 mg PO BID@0630,1630 aspirin 81 mg tablet,delayed release (DR/EC) 81 mg PO DAILY carvedilol 6.25 mg tablet 6.25 mg PO BID atorvastatin 80 mg tablet 80 mg PO BEDTIME Protocol: Hold for SBP< HOLD for SBP < : 90 montelukast 10 mg tablet 10 mg PO BEDTIME cetirizine 10 mg tablet 10 mg PO DAILY fluticasone propionate 50 mcg/actuation spray,suspension 2 spray intranasal DAILY PRN (DME) lancets [TRUEplus Lancets] 33 gauge misc See Rx Instructions .ROUTE TID Qty: 100 Rx Instructions: As directed (DME) FreeStyle Lite Strips Strip See Rx Instructions .ROUTE TID Qty: 10 Rx Instructions: As directed naloxone 4 mg/actuation spray,non-aerosol 1 spray intranasal ONCE PRN (Reason: Opioid Overdose) prednisone 10 mg tablet 0 mg PO oxycodone-acetaminophen 7.5-325 mg tablet 1 tab PO Q6H PRN (Reason: severe pain) methimazole 5 mg tablet 10 mg PO DAILY 30 Days Qty: 60 3RF Trulicity 1.5 mg/0.5 mL pen injector subcut pyridoxine (vitamin B6) 100 mg tablet 100 mg PO DAILY 90 Days Qty: 90 3RF pregabalin 75 mg capsule 75 mg PO BID 30 Days Qty: 60 0RF methocarbamol 750 mg tablet 750 mg PO Q8H PRN (Reason: for muscle spasm) 30 Days Qty: 90 3RF cholecalciferol (vitamin D3) 50 mcg (2,000 unit) capsule 50 mcg PO DAILY 90 Days Qty: 90 11RF Referrals: Ashleigh Lombardi PA-C [Physician Behavior Therapist] - 09/29/22
[2022-09-26] MEDS: oxyCODONE HCl Immed Release 5 MG TABLET 10 MG PO (07:22)
--- NOTE | 2022-09-26 07:38 | PC.NURSE ---
assumed care of this patient, splint was reapplied to patients right upper extremity, patients hand had discoloration and swelling, approved after reapplication. patient was medicated for pain, patient also has walking boot on right foot.
== END 2022-09-26 07:51 | disposition home or self-care (01) ==
PROVIDERS: Emergency Provider Emergency Medicine; PCP Internal Medicine Geriatric Medicine
DX: S52.124A Nondisplaced fracture of head of right radius, initial encounter for closed fracture (principal); S92.331A Displaced fracture of third metatarsal bone, right foot, initial encounter for closed fracture; W10.2XXA Fall (on)(from) incline, initial encounter; Y93.01 Activity, walking, marching and hiking; Y92.038 Other place in apartment as the place of occurrence of the external cause; Y99.9 Unspecified external cause status
CPT/HCPCS: 29105; 73030; 73080; 73110; 73620; 99284

== ENCOUNTER 2022-10-08 08:46 | Outpatient (AMB) | payer MEDICARE, MEDICAID, SELFPAY ==
[2022-10-08 08:50] VITALS: BMI 26.6
--- NOTE | 2022-10-08 08:50 | MHC.OFFVIS ---
Intake Vital Signs 10/08/22 08:50 Height 5 ft 5 in Weight 160 lb BMI 26.6 Intake Visit Reasons: FC - right elbow fx, DOI 09/25/22 Intake Note: Marita is a 61 year old right hand dominant female who presents today for a fracture care appointment for her right elbow. On 09/25/22 she was walking to the corner store and she tripped on raised concrete landing on the right arm. She reports that she is feeling pain in the forearm, had numbness and tingling for the first week after injury but it has since subsided and she now feels a burning pain. The foot was injured at the same time as the arm , she reports that she struggles with swelling of the foot mostly at the nd of the day but it has become less symptomatic. Allergies HANK Inhibitors [HANK INHIBITORS] Allergy (Severe, Verified 10/08/22 08:52) ANGIO EDEMA enalapril Allergy (Severe, Verified 10/08/22 08:52) Anaphylaxis erythromycin base [ERYTHROMYCIN BASE] Allergy (Severe, Verified 10/08/22 08:52) HIVES ALL OVER hydromorphone [From DILAUDID] Adverse Reaction (Severe, Verified 10/08/22 08:52) TINGLING, PT DOES NOT LIKE THE FEELING MED GIVES HER HPI FC - right elbow fx, DOI 09/25/22 HPI Details 61-year-old right hand dominant female who presents in the office today, as a new patient, for an evaluation of right upper extremity pain. The patient presented to the ED on 09/26/2022 status post a trip over concrete while walking to the corner store. She states she used her arm to try to protect her hip. X-rays of the right upper extremity were obtained. She reports to have pain in the right forearm. She confirms numbness and tingling for the 1st week after the injury, but has since subsided. She states she now feels a burning pain. The patient reports her foot was injured at the same time as the right upper extremity. She states has been struggling with edema most of the day, but states it has become less symptomatic. She states she has ecchymosis in between all of the toes. She states the little toe is pointing backwards and the nail is not lined up with the rest of her toe nails on the other toes. [facility] Medical History Atelectasis COPD (chronic obstructive pulmonary disease) COPD exacerbation Diabetes Goiter Hyperthyroidism Hypoxia Irritable bowel syndrome Lesion of bronchus Multinodular goiter MCKAY (obstructive sleep apnea) Pneumonia Polycythemia Pulmonary nodules Smoker Subclinical hyperthyroidism Tracheal anomaly Tubular adenoma Vitamin D deficiency Surgical History History of back surgery History of cholecystectomy History of esophagogastroduodenoscopy (EGD) History of tonsillectomy History of ureterostomy Hx of colonoscopy S/P lumpectomy, right breast Family History Father No problems noted. Mother No problems noted. Paternal Aunt Diabetes Social History Household Members: Significant Other Housing: House Do you presently have visiting nurse or other home services: No Alcohol intake: former Patient Tobacco Use Status: Current everyday Tobacco user Tobacco use type: Cigarette Cigarette Packs Per Day: 0.5 Cigarettes Per Day: 10.0 e-Cigarette/Vaping Use: Never Used Second Hand Smoke Exposure: Yes Substance Use Type: Marijuana Advance Directives Date on File: 01/24/21 service: No Current occupational status: disabled Review of Systems Const All systems reviewed & are unremarkable except as noted in HPI and below Physical Exam Vital Signs: BMI result Body Mass Index 26.6 Extrem Other: Right elbow: Lacking 30 degrees of full extension. Flexion to 90 degrees. Able to pronate and supinate with limitation due to pain. NVI. Right foot: Tenderness to palpation 3rd metatarsal. Able to move all digits. Resolving ecchymosis at the base of the toes. Sensation intact. Pedal pulse intact. Office Procedures Fracture Care Fracture Billing Code: Fracture Billing Code Assessment & Plan Assessment & Plan (1) Fracture of third metatarsal bone of right foot: Code(s): S92.331A - Displaced fracture of third metatarsal bone, right foot, initial encounter for closed fracture (2) Right radial head fracture: Code(s): S52.121A - Displaced fracture of head of right radius, initial encounter for closed fracture Plan Ms. Ashley Lawrence is a 61-year-old right hand dominant female who presents in the office today, as a new patient, for an evaluation of right upper extremity pain. The patient presented to the ED on 09/26/2022 status post a trip over concrete while walking to the corner store. She states she used her arm to try to protect her hip. X-rays of the right upper extremity were obtained. She reports to have pain in the right forearm. She confirms numbness and tingling for the 1st week after the injury, but has since subsided. She states she now feels a burning pain. The patient reports her foot was injured at the same time as the right upper extremity. She states has been struggling with edema most of the day, but states it has become less symptomatic. She states she has ecchymosis in between all of the toes. She states the little toe is pointing backwards and the nail is not lined up with the rest of her toe nails on the other toes. Right elbow plan: She will continue to wear the sling mfor comfort as needed. She was given an ultra sling without the pillow, off the shelf, while in the office today. She does not need to continue to wear the splint or AHNK wrap. I demonstrated gentle elbow, wrist, and hand ROM. She will need to work on these exercises as much as possible. Right foot plan: She was given a stockinette to wear with the boot. She will continue to wear the boot. Weight bear as tolerated. Follow up will be in 4 week with x-rays, or sooner if needed. X-rays of the right foot which were obtained while in the office today and were reviewed by me, Ashleigh Lombardi PA-C, revealed 3rd metatarsal fracture. X-rays of the right elbow, obtained on 09/26/2022, revealed: Joint effusion with subtle contour deformity of the radial head, for which a nondisplaced fracture cannot be excluded. X-rays of the right shoulder, obtained on 09/26/2022, revealed: Mild right humeral neck deformity, more suggestive of sequelae of healed old fracture X-rays of the right foot, obtained on 09/26/2022, revealed: Cortical irregularity at the neck of the third metatarsal, suspicious for acute fracture. Orders: Orders XR foot RT min 3V Today M79.673 - Pain in unspecified foot Patient Instructions: Scribed for Ashleigh Lombardi PA-C by Catalina Cesar medical coordinator pesticide use, on 10/08/2022 at 8:52 am, EST. Your attestation Quality Reporting (2019) Adult ([facility] 138/[birth year]) Smoking risk assessment performed?: Yes Patient Tobacco Use Status: Current everyday Tobacco user Coding Level of Care Code New Pt Level 4 (36022) Diagnoses Fracture of third metatarsal bone of right foot S92.331A Right radial head fracture S52.121A CPT Codes Fracture Care - Fracture Billing Code: Fracture Billing Code ([id number])
== END 2022-10-08 09:58 | disposition home or self-care (01) ==
PROVIDERS: PCP Internal Medicine Geriatric Medicine; Visit Provider Physician Assistant
DX: S92.331A Displaced fracture of third metatarsal bone, right foot, initial encounter for closed fracture (principal); S52.121A Displaced fracture of head of right radius, initial encounter for closed fracture; W01.0XXA Fall on same level from slipping, tripping and stumbling without subsequent striking against object, initial encounter
CPT/HCPCS: 99204

== ENCOUNTER → 2022-10-08 08:46 | Outpatient (BNVA) | payer OTHER, SELFPAY | PROVIDERS: PCP Internal Medicine Geriatric Medicine; Visit Provider Physician Assistant | DX: S52.121A Displaced fracture of head of right radius, initial encounter for closed fracture (principal); S92.331A Displaced fracture of third metatarsal bone, right foot, initial encounter for closed fracture | CPT/HCPCS: 99202 ==

== ENCOUNTER 2022-10-10 11:31 | Outpatient (REF) | payer MEDICARE, MEDICAID, SELFPAY | END 2022-10-10 11:32 | disposition home or self-care (01) | LOC: HO.HOSX 11:31 | PROVIDERS: Visit Provider Physician Assistant | DX: Z13.89 Encounter for screening for other disorder (principal) ==

== ENCOUNTER 2022-10-20 13:35 | Outpatient (REF) | payer OTHER, SELFPAY ==
--- NOTE | ~2022-10-20 | XR_ITS ---
EXAMINATION: XR CHEST CLINICAL INFORMATION: Hypoxia, COPD with acute bronchitis Patient states shortness of breath for 3 days COMPARISON: Chest 02/09/2022 TECHNIQUE: 2 views of the chest were obtained. 1346 FINDINGS: The lungs are well expanded and clear. There is slight increase in opacity in the right costophrenic angle which may be a combination of atelectasis, infiltrate, and/or fluid. The cardiomediastinal silhouette is within normal limits. Mild degenerative changes involve the thoracic spine. XR/XR chest 2V IMPRESSION: Right lower lobe atelectasis and/or infiltrate, and/or fluid.
== END 2022-10-20 13:36 | disposition home or self-care (01) ==
LOC: HO.HHCX 13:35
PROVIDERS: Visit Provider Family Medicine
DX: R09.02 Hypoxemia (principal); J44.0 Chronic obstructive pulmonary disease with (acute) lower respiratory infection; J20.9 Acute bronchitis, unspecified
CPT/HCPCS: 36415; 71046; 80053; 85025; 85379

== ENCOUNTER 2022-10-20 13:52 | Outpatient (REF) | payer MEDICARE, MEDICAID, SELFPAY ==
[2022-10-20 16:18] LABS: MANUAL DIFF FLAG NO
[2022-10-20 16:33] LABS: Basophils Absolute Auto 0.2 X10*3/uL (0.0-0.2); Eosinophils Absolute Auto 0.3 X10*3/uL (0.0-0.4); Eosinophils Percent Auto 1.7 % (0-4); Hematocrit 52.4 % (37.0-47.0); Hemoglobin 16.3 g/dl (12.0-16.0); Imm Gran Abs Auto 0.08 X10*3/uL (0.00-0.03); Imm Gran Pct Auto 0.5 % (0.0-0.4); Lymphocytes Absolute Auto 2.3 X10*3/uL (1.2-4.9); Lymphocytes Percent Auto 14.7 % (20-40); Mean Corpuscular HGB Conc 31.1 g/dl (31.0-35.0); Mean Corpuscular Volume 93.1 fL (80.0-98.0); Mean Platelet Volume 12.5 fL (9.4-12.3); Monocytes Absolute Auto 0.4 X10*3/uL (0.1-1.2); Monocytes Percent Auto 2.5 % (2-11); Neutrophils Absolute Auto 12.2 x10*3/uL (2.0-8.3); Neutrophils Percent Auto 79.6 % (45-73); Platelet Count 180 X10*3/uL (160-400); Red Blood Count 5.63 X10*6/uL (4.20-5.50); Red Cell Distribution Width 13.2 % (11.0-16.0); White Blood Count 15.4 X10*3/uL (4.8-10.8)
[2022-10-20 16:41] LABS: Alanine Aminotransferase 25 U/L (0-31); Albumin Level 4.2 g/dL (3.5-5.0); Alkaline Phosphatase 85 U/L (39-117); Anion Gap 14 (12-20); Aspartate Amino Transferase 22 U/L (5-31); Bilirubin Total 0.9 mg/dL (0.0-1.0); Blood Urea Nitrogen 13 mg/dL (9-16); Calcium 9.8 mg/dL (8.4-10.2); Carbon Dioxide 26 mmol/L (22-29); Chloride 108 mmol/L (96-108); Estimated Glomerular Filt Rate > 60; Glucose Random 170 mg/dL (60-115); Potassium 4.2 mmol/L (3.3-5.1); Sodium 144 mmol/L (135-145); Total Protein 7.5 g/dL (6.5-8.0)
[2022-10-20 16:49] LABS: D Dimer High Sensitivity 1405 NG/ML
== END 2022-10-20 13:53 | disposition home or self-care (01) ==
LOC: HO.HHCL 13:52
PROVIDERS: Visit Provider Family Medicine
DX: Z13.89 Encounter for screening for other disorder (principal)
CPT/HCPCS: 36415; 80053; 85025; 85379

== ENCOUNTER 2022-10-20 17:51 | Inpatient (IN) | payer OTHER, SELFPAY ==
--- NOTE | ~2022-10-20 | CT_ITS ---
EXAMINATION: CT ANGIOGRAM OF THE CHEST WITH AND WITHOUT CONTRAST (CT PULMONARY ANGIOGRAM FOR PE) CLINICAL INFORMATION: Reason for Exam Shortness of breath, recent ankle fracture COMPARISON: Chest radiograph 10/20/2022, CT chest 12/30/2021, ultrasound thyroid 05/21/2022 TECHNIQUE: Prior to contrast administration, noncontrast localization images were obtained. Subsequently, multidetector volumetric imaging was performed from the thoracic inlet to below the diaphragms following the administration of 65 mL Omnipaque 350 intravenous contrast. No contrast reaction reported Sagittal, coronal, and MIP oblique sagittal reformatted images were obtained on the CT workstation, uploaded to PACS, and reviewed. This CT examination was performed using dose optimization techniques as appropriate, variously including the following: *Automated exposure control *Adjustment of mA and/or kV according to patient size (this includes techniques or standardized protocols for targeted exams where dose is matched to indication/reason for exam; i.e. extremities or head) *Use of iterative reconstruction technique Total exam dose-length product 420 mGy-cm FINDINGS: QUALITY OF STUDY/CONTRAST BOLUS: Satisfactory. PULMONARY ARTERIES: No pulmonary emboli. THORACIC AORTA: No aneurysm. LUNG: No focal consolidation, nodules or masses. PLEURA: No pleural effusion or pneumothorax. MEDIASTINUM: There is thyromegaly. No discrete masses are seen. Normal heart size. No pericardial effusion. No hilar or mediastinal lymphadenopathy. No evidence of septal bowing or right heart strain. CORONARY ARTERY CALCIFICATION: None visualized on this study. CHEST WALL/AXILLA: No axillary or internal mammary lymphadenopathy. OSSEOUS STRUCTURES: No acute or suspicious osseous abnormality. UPPER ABDOMEN: Unremarkable. No reflux of contrast into the hepatic veins to suggest elevated right heart pressures. CT/CT angio chest PE protocol IMPRESSION: 1. No evidence of pulmonary emboli. 2. Incidentally noted thyromegaly. VTE: negative.
[2022-10-20 18:22] VITALS: BP 121/91; PULSE 110; RESP 18; TEMP 36; O2SAT 92; BMI 27.1
--- NOTE | 2022-10-20 18:22 | ED.GENADULT ---
HPI - General Adult General Chief complaint: Dyspnea Stated complaint: blood clot in lung? Time Seen by Provider: 10/20/22 21:37 Source: patient, RN notes reviewed and old records reviewed Mode of arrival: ambulatory History of Present Illness HPI narrative: 61 year old female with PMHx COPD, IA, DM II, and hyperthyroidism presenting to the ED with complaints of SOB x 3 days and cough for the past day. Patient was seen on 09/26/22 for treatment of right radial head fracture and fracture of third metatarsal bone of right foot, currently wearing sling & walking boot. Reports waking up this morning and seeing O2 sat at 87% (baseline 95%) which prompted visit to [facility] who sent patient to ED after elevated outpatient D-dimer. Patient admits was started on 40 mg of prednisone x5 days at [facility] due to her COPD. Denies fever, chills, chest pain, abdominal pain, nausea, vomiting, pedal edema, calf tenderness, history of clot. Takes ASA denies other anticoagulation Onset (ago): day(s) Related Data Home Medications Medication Instructions Recorded Confirmed aspirin 81 mg tablet,delayed 81 mg PO DAILY 12/24/19 10/21/22 release atorvastatin 80 mg tablet 80 mg PO BEDTIME 12/24/19 10/21/22 carvedilol 6.25 mg tablet 6.25 mg PO BID 12/24/19 10/21/22 cetirizine 10 mg tablet 10 mg PO DAILY 12/24/19 10/21/22 montelukast 10 mg tablet 10 mg PO BEDTIME 12/24/19 10/21/22 omeprazole 20 mg capsule,delayed 20 mg PO BID@0630,1630 12/24/19 10/21/22 release ipratropium 20 mcg-albuterol 100 1 puff inhalation QID 01/02/20 10/21/22 mcg/actuation mist for inhalation (Combivent Respimat) docusate sodium 100 mg capsule 1 cap PO BEDTIME PRN Constipation 01/24/21 10/21/22 lidocaine 5 % topical cream 1 appl topical DAILY 01/24/21 10/21/22 blood sugar diagnostic (FreeStyle #10 ea 10/07/21 09/25/22 Lite Strips) lancets 33 gauge (TRUEplus Lancets) #100 ea 10/07/21 09/25/22 naloxone 4 mg/actuation nasal spray 1 spray intranasal ONCE PRN Opioid 10/07/21 10/21/22 Overdose insulin lispro 100 unit/mL 6 - 10 unit subcut TIDAC 11/02/21 10/21/22 subcutaneous pen (Humalog KwikPen (U-100) Insulin) ipratropium 0.5 mg-albuterol 3 mg 3 ml inhalation QID PRN 11/02/21 10/21/22 (2.5 mg base)/3 mL nebulization Respiratory Distress soln oxycodone-acetaminophen 7.5 mg-325 1 tab PO Q6H PRN severe pain 06/23/22 10/21/22 mg tablet fluticasone propionate 50 2 spray intranasal DAILY PRN 07/25/22 10/21/22 mcg/actuation nasal Congestion spray,suspension prednisone 10 mg tablet 0 mg PO 07/25/22 09/25/22 dulaglutide 1.5 mg/0.5 mL See Rx Instructions .Route .COMPLEX 08/06/22 10/21/22 subcutaneous pen injector (Trulicity) Previous Rx's Medication Instructions Recorded insulin glargine 100 unit/mL (3 30 unit (0.3 mL) subcut BID #15 mL 02/12/22 mL) subcutaneous pen (Lantus Solostar U-100 Insulin) methimazole 5 mg tablet 10 mg PO DAILY 30 days #60 tabs 06/23/22 Ventolin HFA 90 mcg/actuation 2 puff PO Q4-6H PRN for wheezing 07/16/22 aerosol inhaler (albuterol sulfate) #18 grams pyridoxine (vitamin B6) 100 mg 100 mg PO DAILY 90 days #90 tabs 08/06/22 tablet roflumilast 500 mcg tablet 500 mcg PO DAILY #30 tabs 08/14/22 Trelegy Ellipta 100 mcg-62.5 1 ea inhalation DAILY #60 ea 09/03/22 mcg-25 mcg powder for inhalation (mnvhncbvvto-jcqeurqfg-tlbwmzvc) benfotiamine 150 mg capsule 150 mg PO BID diabetic neuropathy 09/12/22 30 days #60 caps cholecalciferol (vitamin D3) 50 50 mcg PO DAILY 90 days #90 caps 09/12/22 mcg (2,000 unit) capsule methocarbamol 750 mg tablet 750 mg PO Q8H PRN for muscle spasm 09/12/22 30 days #90 tabs lidocaine-prilocaine 2.5 %-2.5 % 1 appl topical ONCE pain #30 grams 09/24/22 topical cream pregabalin 75 mg capsule 75 mg PO BID pain 30 days #60 caps 10/13/22 prednisone 5 mg tablet 5 mg PO DAILY 30 days #30 tabs 10/17/22 Allergies Allergy/AdvReac Type Severity Reaction Status Date / Time HANK Inhibitors Allergy Severe ANGIO Verified 10/20/22 18:22 [HANK INHIBITORS] EDEMA enalapril Allergy Severe Anaphylaxis Verified 10/20/22 18:22 erythromycin base Allergy Severe HIVES ALL Verified 10/20/22 18:22 [ERYTHROMYCIN BASE] OVER hydromorphone [From DILAUDID] AdvReac Severe TINGLING, Verified 10/20/22 18:22 PT DOES NOT LIKE THE FEELING MED GIVES HER Review of Systems Review of Systems: Constitutional: No Fever, No Chills, No Fatigue, No Malaise ENT/Mouth: No Ear Pain, No Nasal Congestion, No sore throat, No Rhinorrhea, No Swallowing Difficulty Eyes: No Eye Pain, No Swelling, No Redness, No Vision Changes Cardiovascular: No Chest Pain, + SOB, No Dyspnea on Exertion, No Orthopnea, No Edema Respiratory: + Cough, No Sputum, + Wheezing, No Smoke Exposure, No Dyspnea Gastrointestinal: No Nausea, No Vomiting, No Diarrhea, No Constipation, No Abdominal pain Genitourinary: No irregular bleeding, No Dysuria, No Urinary Frequency, No Hematuria, No Flank Pain Musculoskeletal: No joint pain, No Myalgias, No Joint Swelling Skin: No Skin Lesions, No rash Neuro: No Weakness, No Numbness, No Headache Yes all other systems are reviewed and are negative Constitutional: Constitutional: Reports as per [facility] Past Medical History Attestation statement: The following information was validated with the patient. Source: old records reviewed Medical History Atelectasis COPD (chronic obstructive pulmonary disease) COPD exacerbation Diabetes Goiter Hyperthyroidism Hypoxia Irritable bowel syndrome Lesion of bronchus Multinodular goiter MCKAY (obstructive sleep apnea) Pneumonia Polycythemia Pulmonary nodules Smoker Subclinical hyperthyroidism Tracheal anomaly Tubular adenoma Vitamin D deficiency Surgical History History of back surgery History of cholecystectomy History of esophagogastroduodenoscopy (EGD) History of tonsillectomy History of ureterostomy Hx of colonoscopy S/P lumpectomy, right breast Family History Family History Father No problems noted. Mother No problems noted. Paternal Aunt Diabetes Social History Social History Household Members: Significant Other Housing: House Do you presently have visiting nurse or other home services: No Alcohol intake: never Patient Tobacco Use Status: Current everyday Tobacco user Tobacco use type: Cigarette Cigarette Packs Per Day: 0.5 Cigarettes Per Day: 10.0 Smoked in Last 30 Days: Yes e-Cigarette/Vaping Use: Never Used Second Hand Smoke Exposure: Yes Use of substances other than those prescribed or required for medical reasons: Yes Substance Use Type: Marijuana Substance Use Frequency: Chronic Longstanding Advance Directives: Yes Advance Directives on File: Yes Advance Directives Date on File: 01/24/21 Patient : No service: No Current occupational status: disabled Physical Exam ED Vital Signs: Vital Signs - 24 hr 10/20/22 18:22 10/20/22 23:05 10/20/22 23:08 Temperature 96.8 F 98.6 F Pulse Rate 110 H 107 H 108 H Respiratory Rate 18 18 18 Blood Pressure 121/91 H 143/81 H Pulse Oximetry 92 92 Oxygen Delivery Method Room Air Nasal Cannula Oxygen Flow Rate 2 10/21/22 00:03 Temperature 98.0 F Pulse Rate 109 H Respiratory Rate 20 Blood Pressure 142/79 H Pulse Oximetry 94 Oxygen Delivery Method Nasal Cannula Oxygen Flow Rate 2 BMI result Body Mass Index 27.1 Const General: cooperative, healthy appearing and no acute distress Orientation/consciousness: patient oriented x3 Limitations: no limitations HENMT Head: Yes normal to inspection and Yes atraumatic Ears: hearing grossly normal bilaterally General nose exam: Normal external nose present Face and sinus: Yes normal facial exam Eyes General: appearance normal, both eyes and all related structures EOM: EOMs intact bilaterally Neck Neck: Yes normal visual inspection and Yes no meningeal signs Resp Effort & Inspection: normal respiratory effort and no respiratory distress Auscultation: wheezes expiratory wheezes and throughout and diminished lung sounds bilateral in the lower lung chandler Cardio Rate: regular rate and tachycardic Heart sounds: S1 normal heart sound present and S2 normal heart sound present GI Inspection: Yes normal to inspection Palpation (GI): Soft to palpation, nontender, no guarding and not rigid Skin Rashes: no rashes Wounds: no wounds Neuro General: patient oriented x3, tone normal and no meningeal signs Gait exam (Neuro): Normal gait present Extrem General: Yes normal to inspection, Yes no pedal edema and Yes no calf tenderness Course Course Course Narrative: RME- 61-year-old female presents for evaluation of shortness of breath. She has a history of COPD and a recent ankle fracture. She had outpatient labs today and was found to have a D-dimer elevated to over 1400. A chest x-ray indicates ?atelectasis versus infiltrate versus fluid. I do not see any indication to repeat labs that were done earlier today. I ordered a CT angiography of the chest -8--labs reviewed from earlier, noted leukocytosis of 15.4. H&H at patient's baseline. D-dimer was 1405. Troponin negative. -lactic acid WNL XR chest 2V IMPRESSION: Right lower lobe atelectasis and/or infiltrate, and/or fluid CT angio chest PE protocol IMPRESSION: 1.? No evidence of pulmonary emboli. 2.? Incidentally noted thyromegaly. VTE: negative. > patient is satting 92% on 1 L NC, with minimal ambulation drops to 89% on RA >> plan to admit for further management Medications Administered Discontinued Medications Generic Name Dose Route Start Last Admin Trade Name Nora PRN Reason Stop Dose Admin Albuterol Sulfate 2.5 mg/ 0 mg 10/20/22 22:49 10/20/22 23:07 Albuterol/Ipratropium 3 ml INHALE 10/20/22 22:50 1 dose ONCE ONE Administration Ceftriaxone Sodium 1 gm/ 50 mls @ 100 mls/hr 10/20/22 22:49 10/20/22 23:41 Sodium Chloride IV 10/20/22 23:18 Infused ONCE ONE Infusion Magnesium Sulfate 2 gm in 50 mls @ 25 mls/hr 10/20/22 23:32 10/21/22 01:46 Magnesium Sulfate/H2o IV 10/21/22 01:31 Infused ONCE ONE Infusion Iohexol 100 ml 10/20/22 21:51 10/20/22 21:51 Iohexol 350 Mg/Ml 100 Ml Infus..Btl IV 10/20/22 21:52 65 ml ONCE ONE Administration Methylprednisolone Sodium Succinate 125 mg 10/20/22 23:32 10/20/22 23:56 Methylprednisolone Sod Succ 125 Mg/2 Ml Vial IVPUSH 10/20/22 23:33 125 mg ONCE ONE Administration Medical Decision Making Medical Decision Making [facility] Narrative: 61 year old female with PMHx COPD, IA, DM II, and hyperthyroidism presenting to the ED with complaints of SOB x 3 days and cough for the past day, sent patient to ED from for outpatient elevated D-dimer. On exam initially 92% on RA, tachycardic likely from albuterol use, NAD, diminished lung sounds with expiratory wheeze throughout. No appreciable pitting edema or calf tenderness. Patient's D-dimer earlier this afternoon was 1405. Concern for COPD exacerbation vs PE vs pneumonia vs viral syndrome. Rule out ACS. Lower suspicion for dissection or CHF Low suspicion for severe sepsis at this time Plan: Labs, CTA, DuoNeb, re-evaluate Please refer to course for remaining clinical decision making, interpretation of labs/imaging results, and discussions with consultants and/or family members. Differential Diagnosis Differential Diagnoses: The differential diagnosis associated with the presentation includes As above Admission/Observation Consideration of admission/observation: Escalation of care including admission/observation considered Consult Healthcare Provider Management of the patient was discussed with: Hospitalist Lab Data [facility] Lab Attestation statement: I reviewed the patient's lab results. Labs: Lab Results 10/20/22 10/20/22 10/20/22 Range/Units 22:10 22:38 22:38 PT (10.0-13.1) SEC INR (0.9-1.1) Lactic Acid 1.7 (0.5-2.0) mmol/L Troponin I High Sens 3.9 (<3.5-17.0) ng/L B-Natriuretic Peptide 35 (<100) pg/mL 10/20/22 Range/Units 22:40 PT 11.3 (10.0-13.1) SEC INR 1.0 (0.9-1.1) Lactic Acid (0.5-2.0) mmol/L Troponin I High Sens (<3.5-17.0) ng/L B-Natriuretic Peptide (<100) pg/mL Independent Interpretation I performed an independent interpretation of an: EKG (EKG sinus tachycardia rate of 106. DC interval 150. QTC 483. No STEMI.) Radiology Impression Discussion of test interpretation with radiology: I have reviewed the radiologist's reading. External Record Review External record reviewed: Inpatient record, Office record, Outpatient record, Prior outpatient labs, Prior outpatient radiology, Primary care record and Outside ED record Tests considered The following testing was considered but not selected: As above Chronic Conditions Patient?s care impacted by: Diabetes and Hypertension Critical Care Time Critical Care Time Critical Care Time: Yes Total Critical Care Time: 35 Attestation: I have personally provided critical care time exclusive of time spent on separately billable procedures. Time includes review of lab data, radiology results, discussion with consultants, and monitoring for potential decompensation. Intervention performed as documented. Discharge Plan Discharge Clinical Impression: Acute exacerbation of chronic obstructive pulmonary disease (COPD) Patient Disposition: Admitted As Inpatient
--- NOTE | 2022-10-20 21:39 | ECG_ITS ---
Test Reason : SOB Blood Pressure : / mmHG Vent. Rate : 106 BPM Atrial Rate : 106 BPM P-R Int : 158 ms QRS Dur : 094 ms QT Int : 364 ms P-R-T Axes : 073 -85 040 degrees QTc Int : 483 ms Sinus tachycardia Left axis deviation Incomplete right bundle branch block Possible Inferior infarct , age undetermined Abnormal ECG When compared to the previous EKG of No significant changes seen Referred By: Meenakshi Florence Electronically Signed By:DAVI KEEN MD
[2022-10-20] MEDS: iohexoL 350 MG/ML 100 ML INFUS..BTL IV (21:51)
[2022-10-20 22:42] LABS: Troponin-I High Sensitivity 3.9 ng/L (<3.5-17.0)
[2022-10-20 22:58] LABS: Lactic Acid 1.7 mmol/L (0.5-2.0)
[2022-10-20 22:59] LABS: Prothrombin Time 11.3 SEC (10.0-13.1)
[2022-10-20 23:05] VITALS: BP 143/81; PULSE 107; RESP 18; TEMP 37; O2SAT 92
[2022-10-20] MEDS: cefTRIAXone sodium 1 GM in 0.9 % Sodium Chloride 50 ML IV (23:07)
[2022-10-20] MEDS: Albuterol Sulfate 2.5 MG, Albuterol/Iprat 2.5/0.5MG 3 ML 3 ML INHALE (23:07)
[2022-10-20 23:08] VITALS: PULSE 108; RESP 18; O2SAT 93
[2022-10-20 23:23] LABS: B Type Natriuretic Peptide 35 pg/mL (<100)
[2022-10-20] MEDS: Magnesium Sulfate/H2O 2 GM/50 ML PIGGYBACK IV (23:44)
--- NOTE | 2022-10-20 23:47 | MHC.EDTECH ---
pt resting comfortably, labs drawn,vss. patient on rn cardiac rehab
[2022-10-20] MEDS: methylPREDNISolone Sod Succ 125 MG/2 ML VIAL IVPUSH (23:56)
[2022-10-21] VITALS (11 sets, daily range): BP systolic 130–151; BP diastolic 67–79; PULSE 84–109; RESP 14–20; TEMP 36.3–36.7; O2SAT 92–98; BMI 27.3
--- NOTE | 2022-10-21 00:22 | P.HPHOSP_ITS ---
History of Present Illness Date of Service: 10/21/22 Chief Complaint: Shortness of breath 61-year-old female with past medical history of COPD, diabetes, diabetic neuropathy, history of coronary artery disease status post [place], diabetes, hyperthyroidism, comes into the hospital with complaints of shortness of breath, cough, found to be hypoxic. Shortness of breath started 3 days ago, has cough, normal production, feeling feverish, has chills, denies any chest pain, no palpitations, no abdominal pain nausea or vomiting, no diarrhea constipation, no urinary symptoms and no lower extremity edema. On arrival to the ED patient noted to be hypoxic desatting to 80-89% on minimal exertion, Labs are significant for WBC count of 15.4, hemoglobin of 16.3, hematocrit 52.4, labs otherwise unremarkable, Chest CT angiogram negative for PE, no evidence of pneumonia Review of Systems Review of Systems: Yes all other systems are reviewed and are negative [facility] Medical History Atelectasis COPD (chronic obstructive pulmonary disease) COPD exacerbation Diabetes Goiter Hyperthyroidism Hypoxia Irritable bowel syndrome Lesion of bronchus Multinodular goiter MCKAY (obstructive sleep apnea) Pneumonia Polycythemia Pulmonary nodules Smoker Subclinical hyperthyroidism Tracheal anomaly Tubular adenoma Vitamin D deficiency Family History Father No problems noted. Mother No problems noted. Paternal Aunt Diabetes Surgical History History of back surgery History of cholecystectomy History of esophagogastroduodenoscopy (EGD) History of tonsillectomy History of ureterostomy Hx of colonoscopy S/P lumpectomy, right breast Social History Household Members: Significant Other Housing: House Do you presently have visiting nurse or other home services: No Alcohol intake: never Patient Tobacco Use Status: Current everyday Tobacco user Tobacco use type: Cigarette Cigarette Packs Per Day: 0.5 Cigarettes Per Day: 10.0 Smoked in Last 30 Days: Yes e-Cigarette/Vaping Use: Never Used Second Hand Smoke Exposure: Yes Use of substances other than those prescribed or required for medical reasons: Yes Substance Use Type: Marijuana Substance Use Frequency: Chronic Longstanding Advance Directives: Yes Advance Directives on File: Yes Advance Directives Date on File: 01/24/21 Nutrition Risks: No Nutritional Risk Patient : No service: No Current occupational status: disabled Meds Allergies Allergy/AdvReac Type Severity Reaction Status Date / Time HANK Inhibitors Allergy Severe ANGIO Verified 10/20/22 18:22 [HANK INHIBITORS] EDEMA enalapril Allergy Severe Anaphylaxis Verified 10/20/22 18:22 erythromycin base Allergy Severe HIVES ALL Verified 10/20/22 18:22 [ERYTHROMYCIN BASE] OVER hydromorphone [From DILAUDID] AdvReac Severe TINGLING, Verified 10/20/22 18:22 PT DOES NOT LIKE THE FEELING MED GIVES HER Active Medications: Current Medications Magnesium Sulfate (Magnesium Sulfate/H2o) 2 gm in 50 mls @ 25 mls/hr IV ONCE ONE Stop: 10/21/22 01:31 Last Admin: 10/20/22 23:44 Dose: 25 mls/hr Pharmacy Consult (Consult Rx Perform Med Rec) 1 each MISCELLANE ONCE STA Stop: 10/20/22 23:34 Home Medications Medication Instructions Recorded Confirmed Last Taken Type aspirin 81 mg tablet,delayed 81 mg PO DAILY 12/24/19 10/21/22 07/15/22 History release atorvastatin 80 mg tablet 80 mg PO BEDTIME 12/24/19 10/21/22 07/15/22 History carvedilol 6.25 mg tablet 6.25 mg PO BID 12/24/19 10/21/22 07/16/22 History cetirizine 10 mg tablet 10 mg PO DAILY 12/24/19 10/21/22 07/15/22 History montelukast 10 mg tablet 10 mg PO BEDTIME 12/24/19 10/21/22 01/23/21 09:30 History omeprazole 20 mg capsule,delayed 20 mg PO BID@0630,1630 12/24/19 10/21/22 1 09:30 History release ipratropium 20 mcg-albuterol 100 1 puff inhalation QID 01/02/20 10/21/22 07/15/22 History mcg/actuation mist for inhalation (Combivent Respimat) docusate sodium 100 mg capsule 1 cap PO BEDTIME PRN Constipation 01/24/21 10/21/22 07/13/22 History lidocaine 5 % topical cream 1 appl topical DAILY 01/24/21 10/21/22 Unknown History blood sugar diagnostic (FreeStyle #10 ea 10/07/21 09/25/22 07/16/22 History Lite Strips) lancets 33 gauge (TRUEplus Lancets) #100 ea 10/07/21 09/25/22 07/16/22 History naloxone 4 mg/actuation nasal spray 1 spray intranasal ONCE PRN Opioid 10/07/21 10/21/22 Unknown History Overdose insulin lispro 100 unit/mL 6 - 10 unit subcut TIDAC 11/02/21 10/21/22 07/14/22 History subcutaneous pen (Humalog KwikPen (U-100) Insulin) ipratropium 0.5 mg-albuterol 3 mg 3 ml inhalation QID PRN 11/02/21 10/21/22 07/16/22 History (2.5 mg base)/3 mL nebulization Respiratory Distress soln oxycodone-acetaminophen 7.5 mg-325 1 tab PO Q6H PRN severe pain 06/23/22 10/21/22 07/16/22 History mg tablet fluticasone propionate 50 2 spray intranasal DAILY PRN 07/25/22 10/21/22 Unknown History mcg/actuation nasal Congestion spray,suspension prednisone 10 mg tablet 0 mg PO 07/25/22 09/25/22 Unknown History dulaglutide 1.5 mg/0.5 mL See Rx Instructions .Route .COMPLEX 08/06/22 10/21/22 Unknown History subcutaneous pen injector (Trulicity) Physical Exam Vital Signs and Narrative: Vital Signs: Last Vital Signs Temp 98.0 F 10/21/22 00:03 Pulse 109 H 10/21/22 00:03 Resp 20 10/21/22 00:03 BP 142/79 H 10/21/22 00:03 Pulse Ox 94 10/21/22 00:03 O2 Del Method Nasal Cannula 10/21/22 00:03 O2 Flow Rate 2 10/21/22 00:03 BMI result Body Mass Index 27.1 Const: General: cooperative and no acute distress Orientation/consciousness: patient oriented x3 Eyes: General: appearance normal, both eyes and all related structures Resp: Other: Decreased breath sounds, crackles bilaterally Effort & Inspection: normal respiratory effort Cardio: Rate: regular rate Rhythm: regular rhythm GI: Palpation (GI): Soft to palpation Auscultation: normal bowel sounds Skin: General skin exam: no rashes or lesions noted Neuro: General: patient oriented x3 Cognition (Neuro): normal cognition Extrem: General: Yes normal to inspection and Yes no pedal edema Results Labs 10/21/22 05:54 10/21/22 05:54 Labs: Laboratory Results - last 24 hr 10/20/22 10/20/22 10/20/22 22:38 22:38 22:40 PT 11.3 INR 1.0 Lactic Acid 1.7 B-Natriuretic Peptide 35 Imaging Radiologist's Impressions: Impressions Chest CTA 10/20/22 22:01 IMPRESSION: 1. No evidence of pulmonary emboli. 2. Incidentally noted thyromegaly. VTE: negative. Assessment and Plan (1) Acute exacerbation of chronic obstructive pulmonary disease (COPD): Status: Acute (2) Acute respiratory failure with hypoxia: Status: Acute Plan 61-year-old female past medical history of COPD comes into the hospital with complaints of shortness of breath found to have COPD exacerbation # COPD exacerbation - has dyspnea, increased cough, no evidence of pneumonia - failed outpatient therapy of prednisone, and breathing treatment - will treat with Solu-Medrol, DuoNeb p.r.n. as well as schedule - monitor respiratory symptoms # acute hypoxic respiratory failure - secondary to COPD exacerbation - oxygen as needed, with O2 sat goal no more than 94% given history of COPD - wean oxygen office tolerated # history of coronary artery disease - continue aspirin, statin, and carvedilol # history of diabetes - continue home diabetic insulin, hold oral antihyperglycemics - will place on low-dose sliding scale insulin - diabetic diet # diabetic neuropathy - continue home medications # hyperthyroidism - continue methimazole DVT prophylaxis: Lovenox Given need for further management of COPD exacerbation and hypoxia patient require minimum 2 nights inpatient hospital stay for further management and monitoring Time Spent With Patient Time: Total time managing care of this patient today ____ minutes. Quality Stroke Does the patient have a stroke diagnosis?: No VTE Prior VTE?: No VTE Risk Level:: Medical - moderate - high VTE Device Contraindication: Treatment Not Tolerated VTE Drug Contraindication: N/A - Med Ordered
[2022-10-21] MEDS: Atorvastatin Calcium 80 MG TABLET PO ×2 (02:03→20:39)
[2022-10-21] MEDS: Pregabalin 75 MG CAPSULE PO ×3 (02:03→20:40)
[2022-10-21] MEDS: Enoxaparin Sodium 40 MG/0.4 ML SYRINGE SUBCUT ×2 (02:03→20:39)
--- NOTE | 2022-10-21 02:43 | PC.NURSE ---
Pt initially brought to hallway bed, placed on portable O2 tank. Std was having some dyspnea x 3 days, not on home O2, concerning from outpatient provider for possible clot. IV established, pt sent for scan. labs drawn, pt moved into room placed on wall o2. Pt medicated per orders, and after further workup by provider, prepared for admission. Pt now currently sitting on stretcher, using cell phone. medicated per in patient orders.
--- NOTE | 2022-10-21 05:22 | PC.NURSE ---
pt sleeping, easily rousable, no acute distress at this time.
[2022-10-21 05:59] LABS: MANUAL DIFF FLAG NO
[2022-10-21 06:02] LABS: Basophils Percent Auto 0.4 % (0-2); Hematocrit 47.5 % (37.0-47.0); Hemoglobin 15.5 g/dl (12.0-16.0); Imm Gran Abs Auto 0.04 X10*3/uL (0.00-0.03); Imm Gran Pct Auto 0.4 % (0.0-0.4); Lymphocytes Absolute Auto 1.7 X10*3/uL (1.2-4.9); Lymphocytes Percent Auto 18.3 % (20-40); Mean Corpuscular HGB Conc 32.6 g/dl (31.0-35.0); Mean Corpuscular Hemoglobin 29.1 pg (27.0-33.0); Mean Corpuscular Volume 89.3 fL (80.0-98.0); Mean Platelet Volume 10.4 fL (9.4-12.3); Monocytes Absolute Auto 0.1 X10*3/uL (0.1-1.2); Monocytes Percent Auto 0.8 % (2-11); Neutrophils Absolute Auto 7.6 x10*3/uL (2.0-8.3); Neutrophils Percent Auto 80.1 % (45-73); Platelet Count 266 X10*3/uL (160-400); Red Blood Count 5.32 X10*6/uL (4.20-5.50); Red Cell Distribution Width 12.9 % (11.0-16.0); White Blood Count 9.4 X10*3/uL (4.8-10.8)
[2022-10-21] MEDS: Acetaminophen 325 MG TABLET PO ×3 (06:11→22:47)
[2022-10-21] MEDS: oxyCODONE HCl Immed Release 15 MG TABLET 7.5 MG PO (06:11)
[2022-10-21] MEDS: Omeprazole 20 MG CAPSULE.DR PO ×2 (06:12→16:12)
[2022-10-21 06:36] LABS: Anion Gap 14 (12-20); Blood Urea Nitrogen 17 mg/dL (9-16); Calcium 9.2 mg/dL (8.4-10.2); Carbon Dioxide 23 mmol/L (22-29); Chloride 108 mmol/L (96-108); Creatinine Clr Calc Pharmacy 69.9; Estimated Glomerular Filt Rate > 60; Glucose Random 332 mg/dL (60-115); Potassium 3.9 mmol/L (3.3-5.1); Sodium 141 mmol/L (135-145)
--- NOTE | 2022-10-21 07:11 | PC.NURSE ---
assumed care of pt at 0700. A&Ox4,POC 312, lower back pain 08/06.
[2022-10-21 07:20] LABS: Glucose, Whole Blood 312 mg/dL (60-115)
--- NOTE | 2022-10-21 07:20 | PC.NURSE ---
Called pharmacy regarding insulin lispro. Pharmacy has not acknowledged insulin and states they need to come to talk to her first.
[2022-10-21] MEDS: Albuterol/Iprat 2.5/0.5MG 3 ML AMPUL.NEB INHALE ×4 (07:22→19:36)
--- NOTE | 2022-10-21 08:13 | PHA.MEDREC ---
Addendum entered by Nadeem Noel 10/21/22 08:17: Patient has not started taking Augmentin 875mg, prednisone 20mg, or ofloxacin otic drops Original Note: Pharmacy Consult ? Medication Reconciliation Pharmacy has completed the medication reconciliation. Spoke to patient to confirm meds.
[2022-10-21] MEDS: Insulin Glargine,Hum.rec.anlog 100 UNIT/ML 10 ML VIAL 30 UNIT SUBCUT ×2 (09:44→20:41)
[2022-10-21] MEDS: 0.9 % Sodium Chloride Flush 3 ML SYRINGE IVFLUSH (09:47)
[2022-10-21] MEDS: carvediloL 6.25 MG TABLET PO ×2 (09:48→20:39)
[2022-10-21] MEDS: Aspirin Enteric Coated 81 MG TABLET.DR PO (09:49)
[2022-10-21] MEDS: Cholecalciferol (Vitamin D3) 25 MCG TABLET 50 MCG PO (09:49)
[2022-10-21] MEDS: Loratadine 10 MG TABLET PO (09:49)
[2022-10-21] MEDS: methylPREDNISolone Sod Succ 40 MG/ML VIAL IVPUSH ×2 (09:51→21:22)
--- NOTE | 2022-10-21 10:27 | PC.NURSE ---
Some 0900 meds not given. Waiting for pharmacy.
[2022-10-21] MEDS: Fluticasone/Umeclidinium/Vilanterol 100/62.5/25 BLST.W.DEV 1 PUFF INHALE (11:08)
[2022-10-21] MEDS: Pyridoxine HCl (Vitamin B6) 50 MG TABLET 100 MG PO (11:49)
[2022-10-21] MEDS: Roflumilast 500 MCG TABLET PO (11:49)
[2022-10-21] MEDS: methIMAzole 10 MG TABLET PO (11:50)
[2022-10-21 12:01] LABS: Glucose, Whole Blood 397 mg/dL (60-115)
--- NOTE | 2022-10-21 12:01 | PC.NURSE ---
Pt A&Ox4, reports no pain at this time, meds given per order, no resp. distress, unlabored RR, pt resting comfortably. Reached out to admitting provider about pt POC-397. Waiting response for intervention.
[2022-10-21] MEDS: Insulin Lispro 100 UNIT/ML 3 ML VIAL SUBCUT ×3 (12:19→20:40)
--- NOTE | 2022-10-21 12:59 | PC.NURSE ---
Report given to Maria Luz DRUMMOND in ED overflow.
--- NOTE | 2022-10-21 14:17 | MHC.CM.PN ---
Attempted to meet with patient in regards to discharge planning. Patient currently sleeping. No family present. Will attempt to meet with patient again. Continue to monitor for d/c needs.
[2022-10-21] MEDS: oxyCODONE HCl Immed Release 5 MG TABLET 7.5 MG PO ×2 (16:13→22:46)
--- NOTE | 2022-10-21 16:25 | PM.EVENT ---
Event Note Date of Service: 10/21/22 Event Note: the patient was seen and evaluated this morning Laying in bed, feels comfortable Denies any fever, chills but having wheezes and shortness of breath continue nebulizer, steroids and O2 for now Time Spent With Patient Time: Total time managing care of this patient today ____ minutes.
--- NOTE | 2022-10-21 18:12 | PC.NURSE ---
report given to HODA Hernandez. pt requesting nicotine patch, provider aware
[2022-10-21 18:45] LABS: Glucose, Whole Blood 361 mg/dL (60-115)
[2022-10-21 20:22] LABS: Glucose, Whole Blood 246 mg/dL (60-115)
[2022-10-21] MEDS: cefTRIAXone sodium 1 GM in 0.9 % Sodium Chloride 50 ML IV (20:38)
[2022-10-21] MEDS: Montelukast Sodium 10 MG TABLET PO (20:39)
[2022-10-22] VITALS (8 sets, daily range): BP systolic 112–142; BP diastolic 58–90; PULSE 76–86; RESP 16–20; TEMP 35.9–36.4; O2SAT 95–98
[2022-10-22] MEDS: vancomycin HCL 1,000 MG, vancomycin HCL 750 MG in 0.9 % Sodium Chloride 500 ML 267.5 MG IV (02:13)
[2022-10-22] MEDS: Omeprazole 20 MG CAPSULE.DR PO ×2 (04:25→16:19)
[2022-10-22 06:05] LABS: Anion Gap 15 (12-20); Blood Urea Nitrogen 20 mg/dL (9-16); Calcium 8.5 mg/dL (8.4-10.2); Carbon Dioxide 21 mmol/L (22-29); Chloride 110 mmol/L (96-108); Creatinine Clr Calc Pharmacy 79.6; Estimated Glomerular Filt Rate > 60; Glucose Random 211 mg/dL (60-115); Sodium 142 mmol/L (135-145)
--- NOTE | 2022-10-22 06:42 | PHA.PROG ---
Admission Date/Time: October 21, 2022 00:20 Indication: BACTEREMIA Weight in k.5 kg Adjusted body weight in K [place] body weight in K Obesity Dosing Indication % IBW: N/A Serum Creatinine - Last 168 Hours 10/21/22 10/22/22 05:54 05:00 Creatinine 0.84 0.74 Estimated CrCl and GFR - Last 168 Hours 10/21/22 10/22/22 05:54 05:00 Estim Creat Clear Calc 69.9 79.6 Estimated GFR > 60 > 60 Vancomycin Loading Dose: 1750 Current Vancomycin Dosing Regimen: 1000 Q12 Vancomycin Monitoring using AUC goal of 400 - 600 range with trough as surrogate marker: 542 WITH TROUGH 17.2 Date and Time for next Vancomycin Level to be drawn: 10/23 @0900 Pharmacist Comments on Vancomycin Plan: LOADING DOSE GIVEN OVERNIGHT WAS APPROPRIATE Vancomycin dosing will take advantage of [employer] as a clinical decision support tool that uses Bayesian modeling to calculate individual patient's pharmacokinetic parameters and forecast the patient's drug concentration time course with the target goal AUC 24 range of 400 - 600 mg/L/hr.
[2022-10-22 07:46] LABS: Glucose, Whole Blood 226 mg/dL (60-115)
[2022-10-22] MEDS: Albuterol/Iprat 2.5/0.5MG 3 ML AMPUL.NEB INHALE ×4 (08:03→19:29)
[2022-10-22] MEDS: Fluticasone/Umeclidinium/Vilanterol 100/62.5/25 BLST.W.DEV 1 PUFF INHALE (08:03)
[2022-10-22] MEDS: methylPREDNISolone Sod Succ 40 MG/ML VIAL IVPUSH ×2 (08:14→21:36)
[2022-10-22] MEDS: Insulin Lispro 100 UNIT/ML 3 ML VIAL SUBCUT ×4 (08:15→21:36)
[2022-10-22] MEDS: Insulin Glargine,Hum.rec.anlog 100 UNIT/ML 10 ML VIAL 30 UNIT SUBCUT ×2 (08:15→21:35)
[2022-10-22] MEDS: Aspirin Enteric Coated 81 MG TABLET.DR PO (08:15)
[2022-10-22] MEDS: Roflumilast 500 MCG TABLET PO (08:16)
[2022-10-22] MEDS: Loratadine 10 MG TABLET PO (08:16)
[2022-10-22] MEDS: Pyridoxine HCl (Vitamin B6) 50 MG TABLET 100 MG PO (08:16)
[2022-10-22] MEDS: Cholecalciferol (Vitamin D3) 25 MCG TABLET 50 MCG PO (08:16)
[2022-10-22] MEDS: methIMAzole 10 MG TABLET PO (08:16)
[2022-10-22] MEDS: Pregabalin 75 MG CAPSULE PO ×2 (08:16→21:35)
[2022-10-22] MEDS: carvediloL 6.25 MG TABLET PO ×2 (08:16→21:34)
[2022-10-22] MEDS: 0.9 % Sodium Chloride Flush 3 ML SYRINGE IVFLUSH ×3 (08:17→21:53)
[2022-10-22 08:48] LABS: Thyroid Stimulating Hormone 0.09 uIU/mL (0.32-4.0)
[2022-10-22] MEDS: Nicotine 14 MG PATCH.TD24 TRANSDERMA (09:23)
[2022-10-22] MEDS: oxyCODONE HCl Immed Release 5 MG TABLET 7.5 MG PO ×2 (09:24→19:17)
[2022-10-22] MEDS: Acetaminophen 325 MG TABLET PO (09:25)
[2022-10-22 11:17] LABS: Glucose, Whole Blood 207 mg/dL (60-115)
--- NOTE | 2022-10-22 11:25 | P.PNIM_ITS ---
Subjective Subjective Date of Service: 10/22/22 Interval History: Seen and evaluated Feels better but still SOB and dyspnea No fever or chills 1 set of culture growing GPC Review of Systems Review of Systems: Yes all other systems are reviewed and are negative Physical Exam Vital Signs: Vital Signs: Last Vital Signs Temp 96.8 F 10/22/22 07:46 Pulse 86 10/22/22 08:04 Resp 16 10/22/22 08:04 BP 142/90 H 10/22/22 07:46 Pulse Ox 96 10/22/22 07:46 O2 Del Method Room Air 10/22/22 07:46 O2 Flow Rate 2 10/22/22 03:34 BMI result Body Mass Index 27.3 Const: Other: Constitutional : Awake, interactive, not in distress Neck : Normal inspection, Supple Cardiovascular : RRR, no JVP, no lower extremity edema Respiratory : good bilateral air entry, no crackles,expiratory wheezes Gastrointestinal: soft, lax, Normal bowel sounds, Non tender Skin : Warm, Dry Neurological : Alert & oriented x3, No focal deficit Objective Data Active Medications Acetaminophen (Acetaminophen 325 Mg Tablet) 650 mg PO Q6H PRN PRN Reason: Pain, Mild (Pain Scale 1-3) Acetaminophen (Acetaminophen 325 Mg Tablet) 325 mg PO Q6H PRN PRN Reason: severe pain Last Admin: 10/22/22 09:25 Dose: 325 mg Documented By: NIKOLAS Albuterol/Ipratropium (Albuterol/Iprat 2.5/0.5mg 3 Ml Ampul.Neb) 3 ml INHALE RQ4H PRN PRN Reason: Shortness of Breath/Wheezing Albuterol/Ipratropium (Albuterol/Iprat 2.5/0.5mg 3 Ml Ampul.Neb) 3 ml INHALE RQ4H WHILE AWAKE [facility] Last Admin: 10/22/22 08:03 Dose: 3 ml Documented By: DANIELA Aspirin (Aspirin Enteric Coated 81 Mg Tablet.) 81 mg PO DAILY [facility] Last Admin: 10/22/22 08:15 Dose: 81 mg Documented By: NIKOLAS Atorvastatin Calcium (Atorvastatin Calcium 80 Mg Tablet) 80 mg PO BEDTIME [facility]; Protocol Last Admin: 10/21/22 20:39 Dose: 80 mg Documented By: EMY Carvedilol (Carvedilol 6.25 Mg Tablet) 6.25 mg PO BID [facility]; Protocol Last Admin: 10/22/22 08:16 Dose: 6.25 mg Documented By: NIKOLAS Dextrose (Dextrose 50 % 25 Gm/50 Ml Syringe) 25 gm IVPUSH Q15M PRN; Protocol PRN Reason: per Hypoglycemia Standing Ord. Docusate Sodium (Docusate Sodium 100 Mg Capsule) 100 mg PO DAILY PRN PRN Reason: Constipation Docusate Sodium (Docusate Sodium 100 Mg Capsule) 100 mg PO BEDTIME PRN PRN Reason: Constipation Enoxaparin Sodium (Enoxaparin Sodium 40 Mg/0.4 Ml Syringe) 40 mg SUBCUT BEDTIME [facility] Last Admin: 10/21/22 20:39 Dose: 40 mg Documented By: EMY Fluticasone Propionate (Fluticasone Propionate Nasal 16 Gm [place]) 2 spray NOSTRIL-B DAILY PRN PRN Reason: Congestion Fluticasone/Umeclidinium/Vilanterol (Fluticasone/Umeclidinium/Vilanterol 100/62.5/25 Blst.W.Dev) 1 puff INHALE RDAILY [facility] Last Admin: 10/22/22 08:03 Dose: 1 puff Documented By: DANIELA Glucose (Glucose Gel 15 Gm Gel..Gram.) 15 gm PO Q15M PRN; Protocol PRN Reason: per Hypoglycemia Standing Ord. Ceftriaxone Sodium 1 gm/ (Sodium Chloride) 50 mls @ 100 mls/hr IV Q24H [facility] Last Infusion: 10/21/22 21:26 Dose: 0 mls/hr Documented By: EMY Insulin Glargine (Insulin Glargine,Hum.Rec.Anlog 100 Unit/Ml 10 Ml Vial) 30 unit SUBCUT BID [facility] Last Admin: 10/22/22 08:15 Dose: 30 unit Documented By: NIKOLAS Insulin Human Lispro (Insulin Lispro 100 Unit/Ml 3 Ml Vial) 0 unit SUBCUT QIDACHS [facility]; Protocol Last Admin: 10/22/22 08:15 Dose: 4 unit Documented By: NIKOLAS Loratadine (Loratadine 10 Mg Tablet) 10 mg PO DAILY [facility] Last Admin: 10/22/22 08:16 Dose: 10 mg Documented By: NIKOLAS Methimazole (Methimazole 10 Mg Tablet) 10 mg PO DAILY [facility] Last Admin: 10/22/22 08:16 Dose: 10 mg Documented By: NIKOLAS Methocarbamol (Methocarbamol 750 Mg Tablet) 750 mg PO Q8H PRN PRN Reason: for muscle spasm Methylprednisolone Sodium Succinate (Methylprednisolone Sod Succ 40 Mg/Ml Vial) 40 mg IVPUSH Q12H [facility] Last Admin: 10/22/22 08:14 Dose: 40 mg Documented By: NIKOLAS Montelukast Sodium (Montelukast Sodium 10 Mg Tablet) 10 mg PO BEDTIME [facility] Last Admin: 10/21/22 20:39 Dose: 10 mg Documented By: EMY Nicotine (Nicotine 14 Mg Patch.Td24) 14 mg TRANSDERMA DAILY [facility] Last Admin: 10/22/22 09:23 Dose: 14 mg Documented By: NIKOLAS Omeprazole (Omeprazole 20 Mg Capsule.Dr) 20 mg PO BID@0630,1630 [facility] Last Admin: 10/22/22 04:25 Dose: 20 mg Documented By: EMY Ondansetron HCl (Ondansetron Hcl 4 Mg/2 Ml Vial) 4 mg IVPUSH Q8H PRN PRN Reason: Nausea and Vomiting Oxycodone HCl (Oxycodone Hcl Immed Release 5 Mg Tablet) 7.5 mg PO Q6H PRN PRN Reason: severe pain Last Admin: 10/22/22 09:24 Dose: 7.5 mg Documented By: NIKOLAS Pharmacy Consult (Consult Rx Vancomycin Dosing) 1 each MISCELLANE DAILY PRN PRN Reason: Consult order Pregabalin (Pregabalin 75 Mg Capsule) 75 mg PO BID [facility] Last Admin: 10/22/22 08:16 Dose: 75 mg Documented By: NIKOLAS Pyridoxine HCl (Pyridoxine Hcl (Vitamin B6) 50 Mg Tablet) 100 mg PO DAILY [facility] Last Admin: 10/22/22 08:16 Dose: 100 mg Documented By: NIKOLAS Roflumilast (Roflumilast 500 Mcg Tablet) 500 mcg PO DAILY [facility] Last Admin: 10/22/22 08:16 Dose: 500 mcg Documented By: NIKOLAS Sodium Chloride (0.9 % Sodium Chloride Flush 3 Ml Syringe) 3 ml IVFLUSH QSHIFT [facility] Last Admin: 10/22/22 08:17 Dose: 3 ml Documented By: NIKOLAS Vitamin D (Cholecalciferol (Vitamin D3) 25 Mcg Tablet) 50 mcg PO DAILY [facility] Last Admin: 10/22/22 08:16 Dose: 50 mcg Documented By: NIKOLAS Labs 10/21/22 05:54 10/22/22 05:00 Labs: Laboratory Results - last 24 hr 10/21/22 10/21/22 10/21/22 11:54 16:31 20:14 Anion Gap Estim Creat Clear Calc Estimated GFR POC Glucose 397 H* 361 H* 246 H Random Glucose Calcium TSH 10/22/22 10/22/22 10/22/22 05:00 07:37 11:13 Anion Gap 15 Estim Creat Clear Calc 79.6 Estimated GFR > 60 POC Glucose 226 H 207 H Random Glucose 211 H Calcium 8.5 D TSH 0.09 L Microbiology Microbiology Results: Microbiology 10/20/22 22:19 Blood Culture - Preliminary Blood - Venous Prelim: GPC Gram Stain only 10/20/22 22:38 Blood Culture - Preliminary Blood - Venous No growth after 24 hours. Assessment and Plan (1) Acute respiratory failure with hypoxia: Status: Acute (2) Acute exacerbation of chronic obstructive pulmonary disease (COPD): Status: Acute Plan 61-year-old female past medical history of COPD comes into the hospital with complaints of shortness of breath found to have COPD exacerbation # acute hypoxic respiratory failure # COPD exacerbation failed outpatient therapy of prednisone, and breathing treatment Solu-Medrol, DuoNeb monitor respiratory symptoms wean oxygen office tolerated Home O2 tomorrow # Positive blood culture one set only could be contaminant recieved IV Vancomycin, to hold on more for now # history of coronary artery disease continue aspirin, statin, and carvedilol # history of diabetes continue home diabetic insulin, hold oral antihyperglycemics low-dose sliding scale insulin diabetic diet # diabetic neuropathy continue home medications # hyperthyroidism continue methimazole DVT prophylaxis: Lovenox Given need for further management of COPD exacerbation and hypoxia patient require overnight inpatient hospital stay for further management and monitoring Time Spent With Patient Time: Total time managing care of this patient today ____ minutes. Quality Stroke Does the patient have a stroke diagnosis?: No VTE Prior VTE?: No VTE Risk Level:: Medical - moderate - high VTE Device Contraindication: Treatment Not Tolerated VTE Drug Contraindication: N/A - Med Ordered
--- NOTE | 2022-10-22 12:20 | MHC.CLN ---
NUTRITION CONSULT FOR RECENT WEIGHT LOSS. REVIEW OF WEIGHT HISTORY SHOWS WEIGHT ESSENTIALLY STABLE X ONE YEAR. WEIGHT LOSS OF 14% OCCURRED GREATER THAN ONE YEAR AGO; PATIENT ATTRIBUTES WEIGHT LOSS TO THYROID DISEASE. REPORTS THAT EATING OK. DISLIKES SUPPLEMENTS. HAS NO TEETH AND SELECTS SOFTER FOODS. DIET=DIABETIC 1800 KCALS-APPROPRIATE. NO NEW NUTRITION INTERVENTIONS AT THIS TIME.
--- NOTE | 2022-10-22 13:54 | MHC.CM.PN ---
[pt lives with ,had no pervious services does not expect to need servceis when dcd
[2022-10-22 16:16] LABS: Glucose, Whole Blood 268 mg/dL (60-115)
[2022-10-22] MEDS: Acetaminophen 325 MG TABLET 650 MG PO (19:18)
[2022-10-22 19:28] LABS: Glucose, Whole Blood 264 mg/dL (60-115)
[2022-10-22] MEDS: Montelukast Sodium 10 MG TABLET PO (21:34)
[2022-10-22] MEDS: Atorvastatin Calcium 80 MG TABLET PO (21:34)
[2022-10-22] MEDS: Enoxaparin Sodium 40 MG/0.4 ML SYRINGE SUBCUT (21:37)
[2022-10-22] MEDS: cefTRIAXone sodium 1 GM in 0.9 % Sodium Chloride 50 ML IV (21:37)
[2022-10-23] MEDS: oxyCODONE HCl Immed Release 5 MG TABLET 7.5 MG PO (02:54)
[2022-10-23] MEDS: Acetaminophen 325 MG TABLET PO (02:56)
[2022-10-23 03:11] VITALS: BP 138/67; PULSE 82; RESP 18; TEMP 36.1; O2SAT 94
[2022-10-23] MEDS: Omeprazole 20 MG CAPSULE.DR PO (06:23)
[2022-10-23 06:37] LABS: Anion Gap 16 (12-20); Blood Urea Nitrogen 24 mg/dL (9-16); Calcium 8.7 mg/dL (8.4-10.2); Carbon Dioxide 21 mmol/L (22-29); Chloride 108 mmol/L (96-108); Creatinine Clr Calc Pharmacy 77.5; Estimated Glomerular Filt Rate > 60; Glucose Random 264 mg/dL (60-115); Sodium 141 mmol/L (135-145)
[2022-10-23 07:36] LABS: Glucose, Whole Blood 259 mg/dL (60-115)
--- NOTE | 2022-10-23 07:40 | P.CDIM_ITS ---
PROVIDER RESPONSE TEXT: To clarify, the appropriate diagnosis supported by the clinical indicators: Diabetes mellitus type 2 with hyperglycemia QUERY TEXT: PHYSICIAN'S DOCUMENTATION REQUEST Date of Query: 10/22/2022 10:30 AM EDT Patient Name: Marita Zapata Admit Date: 10/21/2022 Dear Louie Bailey, A review of the medical record indicates additional documentation may be needed. Please review below and update the documentation accordingly. Clinical Indicators: POC glucose 397 H 361 H Insulin Dx. History of Diabetes continue home diabetic insulin, hold oral antihyperglycemics low dose sliding scale insulin diabetic diet Please clarify the following regarding the Complications of Diabetes Mellitus (DM): Diabetes mellitus type 2 with hyperglycemia Other please specify Other (explain)Clinically unable to determine (explain)Thank you, Ratna Kwon, CCS, CDIS Use of terms such as suspected, likely, concern for, or probable (associated with a specific diagnosi s that is being evaluated, monitored, or treated as if it exists) are acceptable and can be coded in the inpatient se tting, when documented at the time of discharge. Please use your independent medical judgment in providing your response. THIS QUERY IS PART OF THE PERMANENT MEDICAL RECORD
[2022-10-23] MEDS: Nicotine 14 MG PATCH.TD24 TRANSDERMA (07:42)
[2022-10-23] MEDS: Insulin Glargine,Hum.rec.anlog 100 UNIT/ML 10 ML VIAL 30 UNIT SUBCUT (07:43)
[2022-10-23] MEDS: Insulin Lispro 100 UNIT/ML 3 ML VIAL SUBCUT ×2 (07:43→11:36)
[2022-10-23] MEDS: Loratadine 10 MG TABLET PO (07:44)
[2022-10-23] MEDS: carvediloL 6.25 MG TABLET PO (07:44)
[2022-10-23] MEDS: methIMAzole 10 MG TABLET PO (07:44)
[2022-10-23] MEDS: Pregabalin 75 MG CAPSULE PO (07:44)
[2022-10-23] MEDS: Aspirin Enteric Coated 81 MG TABLET.DR PO (07:44)
[2022-10-23 07:45] VITALS: BP 182/84; PULSE 74; RESP 20; TEMP 36.3; O2SAT 94
[2022-10-23] MEDS: Roflumilast 500 MCG TABLET PO (07:45)
[2022-10-23] MEDS: Cholecalciferol (Vitamin D3) 25 MCG TABLET 50 MCG PO (07:45)
[2022-10-23] MEDS: Pyridoxine HCl (Vitamin B6) 50 MG TABLET 100 MG PO (07:45)
[2022-10-23] MEDS: 0.9 % Sodium Chloride Flush 3 ML SYRINGE IVFLUSH (07:45)
[2022-10-23] MEDS: Fluticasone/Umeclidinium/Vilanterol 100/62.5/25 BLST.W.DEV 1 PUFF INHALE (08:03)
[2022-10-23] MEDS: Albuterol/Iprat 2.5/0.5MG 3 ML AMPUL.NEB INHALE (08:05)
[2022-10-23 08:06] VITALS: PULSE 77; RESP 16; O2SAT 97
[2022-10-23 09:44] VITALS: BP 165/50
[2022-10-23 09:49] LABS: Vancomycin Trough 4.5 mcg/mL (10.0-20.0)
[2022-10-23] MEDS: methylPREDNISolone Sod Succ 40 MG/ML VIAL IVPUSH (10:13)
[2022-10-23 11:30] LABS: Glucose, Whole Blood 236 mg/dL (60-115)
--- NOTE | 2022-10-23 11:35 | PM.DS ---
DS: Providers Provider Date of Service: 10/23/22 Date of admission: 10/21/22 00:20 Primary care physician: Bobby David MD DS: Diagnosis Discharge Diagnosis (1) Acute respiratory failure with hypoxia: Status: Acute (2) Acute exacerbation of chronic obstructive pulmonary disease (COPD): Status: Acute (3) Positive blood culture: Status: Acute DS: Summary Hospital Course Hospital Course: Admission note HPI 61-year-old female with past medical history of COPD, diabetes, diabetic neuropathy, history of coronary artery disease status post [place], diabetes, hyperthyroidism, comes into the hospital with complaints of shortness of breath, cough, found to be hypoxic.? Shortness of breath started 3 days ago, has cough, normal production, feeling feverish, has chills, denies any chest pain, no palpitations, no abdominal pain nausea or vomiting, no diarrhea constipation, no urinary symptoms and no lower extremity edema.? On arrival to the ED patient noted to be hypoxic desatting to 80-89% on minimal exertion, Labs are significant for WBC count of 15.4, hemoglobin of 16.3, hematocrit 52.4, labs otherwise unremarkable, Chest CT angiogram negative for PE, no evidence of pneumonia Hospital course The patient was admitted for hypoxic respiratory failure 2/2 COPD exacerbation. Treated with IV steroids, bronchodilator nebulizers and Oxygen supplement with good response over the course of hospital stay as she was weaned down oxygen to room air and was able to ambulate on RA close to her baseline. did not need O2 at time of discharge. Noted to have 1 set of blood culture positive. recieved Vancomycin which was later held. final Cx showed contaminant. repeated cultures negative. Continue tapering dose Prednisone Avoid smoking Use your nebulizer 4-6 times daily for the next 3 days then as needed Follow with pulmonology as outpatient as scheduled. Time Spent with Patient Time attestation: Total time managing care of this patient today ____ minutes. Discharge coordination time: Greater than 30 minutes Quality: Safe Use of Opioids Does Pt have an Active Cancer Diagnosis on the Problem List?: No Quality: Stroke Does the patient have a stroke diagnosis?: No Physical Exam Vital Signs: Vital Signs: Last Vital Signs Temp 97.3 F 10/23/22 07:45 Pulse 77 10/23/22 08:06 Resp 16 10/23/22 08:06 BP 165/50 H 10/23/22 09:44 Pulse Ox 94 07/27/23 07:45 O2 Del Method Room Air 10/23/22 07:45 O2 Flow Rate 1 10/22/22 19:01 BMI result Body Mass Index 27.3 Const: Other: Constitutional : Awake, interactive, not in distress Neck : Normal inspection, Supple Cardiovascular : RRR, no JVP, no lower extremity edema Respiratory : good bilateral air entry, no crackles,fine scattered wheezes Gastrointestinal: soft, lax, Normal bowel sounds, Non tender Skin : Warm, Dry Neurological : Alert & oriented x3, No focal deficit DS: Data Data Completed and Pending Labs on day of discharge: Laboratory Results - last 24 hr 10/22/22 10/22/22 10/23/22 16:05 19:19 05:49 Sodium 141 Potassium 4.0 Chloride 108 Carbon Dioxide 21 L Anion Gap 16 BUN 24 H Creatinine 0.76 Estim Creat Clear Calc 77.5 Estimated GFR > 60 POC Glucose 268 H 264 H Random Glucose 264 H Calcium 8.7 Vancomycin Trough 10/23/22 10/23/22 10/23/22 07:30 09:11 11:25 Sodium Potassium Chloride Carbon Dioxide Anion Gap BUN Creatinine Estim Creat Clear Calc Estimated GFR POC Glucose 259 H 236 H Random Glucose Calcium Vancomycin Trough 4.5 L Preliminary micro results at discharge 10/22/22 01:43 Blood Culture - Preliminary Blood - Venous No growth after 24 hours. 10/22/22 01:43 Blood Culture - Preliminary Blood - Venous No growth after 24 hours. 10/20/22 22:38 Blood Culture - Preliminary Blood - Venous No growth after 48 hours. Imaging Chest x-ray: Radiologist's impression: ITS Impressions Chest CTA 10/20/22 22:01 IMPRESSION: 1. No evidence of pulmonary emboli. 2. Incidentally noted thyromegaly. VTE: negative. Discharge Plan Discharge Anticipated Discharge Date/Time: 10/23/22 11:22 Patient Disposition: Home, Self-Care Discharge Diagnosis: COPD exacerbation Referrals: Name,MD Bobby [Primary Care Provider] - 1 Week Discharge Medications: New prednisone 10 mg tablet See Taper PO DIRECTED Qty: 30 0RF Taper: Prednisone 40 mg daily for 3 Days and 0 Hour 30 mg daily for 3 Days and 0 Hour 20 mg daily for 3 Days and 0 Hour 10 mg daily for 3 Days and 0 Hour Rx Instructions: see taper instructions Continued roflumilast 500 mcg tablet 500 mcg PO DAILY Qty: 30 11RF Trelegy Ellipta 100-62.5-25 mcg blister with device 1 ea inhalation DAILY Qty: 60 3RF pregabalin 75 mg capsule 75 mg PO BID 30 Days Qty: 60 3RF prednisone 5 mg tablet 5 mg PO DAILY 30 Days Qty: 30 3RF docusate sodium 100 mg capsule 1 cap PO BEDTIME PRN (Reason: Constipation) insulin glargine [Lantus Solostar U-100 Insulin] 100 unit/mL (3 mL) Insulin Pen 30 unit SUBCUT BID Qty: 15 0RF Rx Instructions: PER PATIENT, MAY REQUIRE HIGHER DOSES WHEN ON STEROIDS insulin lispro [Humalog KwikPen Insulin] 100 unit/mL Insulin Pen 1 sliding scale dose SUBCUT TIDAC Rx Instructions: PER PATIENT MAY REQUIRE HIGHER DOSES WHEN ON STEROIDS (20+MG DAILY) ipratropium-albuterol 0.5 mg-3 mg(2.5 mg base)/3 mL solution for nebulization 3 ml inhalation QID PRN (Reason: Respiratory Distress) albuterol sulfate [Ventolin HFA] 90 mcg/actuation HFA aerosol inhaler 2 puff inhalation Q6H PRN (Reason: wheezing) Combivent Respimat 20-100 mcg/actuation mist 1 puff inhalation QID Rx Instructions: space evenly during waking hours omeprazole 20 mg capsule,delayed release(DR/EC) 20 mg PO BID@0630,1630 aspirin 81 mg tablet,delayed release (DR/EC) 81 mg PO DAILY carvedilol 6.25 mg tablet 6.25 mg PO BID atorvastatin 80 mg tablet 80 mg PO BEDTIME Protocol: Hold for SBP< HOLD for SBP < : 90 montelukast 10 mg tablet 10 mg PO BEDTIME cetirizine 10 mg tablet 10 mg PO DAILY fluticasone propionate 50 mcg/actuation spray,suspension 2 spray intranasal DAILY PRN (Reason: Congestion) (DME) lancets [TRUEplus Lancets] 33 gauge misc See Rx Instructions .ROUTE TID Qty: 100 Rx Instructions: As directed (DME) FreeStyle Lite Strips Strip See Rx Instructions .ROUTE TID Qty: 10 Rx Instructions: As directed naloxone 4 mg/actuation spray,non-aerosol 1 spray intranasal ONCE PRN (Reason: Opioid Overdose) oxycodone-acetaminophen 7.5-325 mg tablet 1 tab PO Q6H PRN (Reason: severe pain) methimazole 5 mg tablet 10 mg PO DAILY 30 Days Qty: 60 3RF Trulicity 1.5 mg/0.5 mL pen injector 1.5 mg subcut REESE@0900 pyridoxine (vitamin B6) 100 mg tablet 100 mg PO DAILY 90 Days Qty: 90 3RF methocarbamol 750 mg tablet 750 mg PO Q8H PRN (Reason: for muscle spasm) 30 Days Qty: 90 3RF cholecalciferol (vitamin D3) 50 mcg (2,000 unit) capsule 50 mcg PO DAILY 90 Days Qty: 90 11RF Discharge Orders: Discharge Order (Routine); Ordered 10/23/22 Ordered By: Louie Bailey Diet: Advance to usual diet Activity on Discharge: As tolerated Stand Alone Forms: Patient Portal Discharge page Care Plan Goals: Read below Health Concerns: Read below Plan of Treatment: Read below Assessment: You were treated for COPD exacerbation with nebulizers, IV steroids, antibiotic and Oxygen supplement with good response over the course of hospital stay as you were weaned down O2 with good tolerence and were able to ambulate close to your baseline. Continue tapering dose Prednisone Avoid smoking Use your nebulizer 4-6 times daily for the next 3 days then as needed Follow with pulmonology as outpatient as scheduled.
--- NOTE | 2022-10-23 11:40 | MHC.CM.PN ---
DP: PT HAS BEEN MEDICALLY CLEARED FOR DC HOME, NO SERVICES. PT HAS OWN RIDE HOME
== END 2022-10-23 12:17 | disposition home or self-care (01) | DRG 190 ==
LOC: HO.ED 23:45 → HO.EDOVER 10-21 00:25 → HO.S3 10-21 17:16
PROVIDERS: Physician Assistant; Admitting Provider Internal Medicine; Emergency Provider Internal Medicine; PCP Internal Medicine Geriatric Medicine; Visit Provider Student in an Organized Health Care Education/Training Program
DX: J44.1 Chronic obstructive pulmonary disease with (acute) exacerbation (principal); J96.01 Acute respiratory failure with hypoxia; E11.40 Type 2 diabetes mellitus with diabetic neuropathy, unspecified; I25.10 Atherosclerotic heart disease of native coronary artery without angina pectoris; E05.90 Thyrotoxicosis, unspecified without thyrotoxic crisis or storm; G47.33 Obstructive sleep apnea (adult) (pediatric); E11.65 Type 2 diabetes mellitus with hyperglycemia; I25.2 Old myocardial infarction; Z79.4 Long term (current) use of insulin; Z79.82 Long term (current) use of aspirin; Z79.52 Long term (current) use of systemic steroids; Z79.899 Other long term (current) drug therapy
CPT/HCPCS: 36415; 71275; 80048; 80202; 82947; 83605; 83880; 84443; 84484; 85025; 85610; 87040; 87147; 87205; 93005; 94640; 99285; J0696; J1650; J2920; J2930; J3370; J3475; Q9967

== ENCOUNTER → 2022-10-20 21:39 | Outpatient (BNV) | payer OTHER, SELFPAY | PROVIDERS: Admitting Provider Internal Medicine; Emergency Provider Internal Medicine; PCP Internal Medicine Geriatric Medicine; Visit Provider Internal Medicine Cardiovascular Disease | DX: R06.02 Shortness of breath (principal) | CPT/HCPCS: 93010 ==

== ENCOUNTER → 2022-10-21 00:20 | Outpatient (BNV) | payer OTHER, SELFPAY | PROVIDERS: Admitting Provider Internal Medicine; Emergency Provider Internal Medicine; PCP Internal Medicine Geriatric Medicine; Visit Provider Internal Medicine | DX: J96.01 Acute respiratory failure with hypoxia (principal); J44.1 Chronic obstructive pulmonary disease with (acute) exacerbation; R78.81 Bacteremia | CPT/HCPCS: 99223; 99233; 99239; 99499 ==

== ENCOUNTER 2022-11-04 09:37 | Outpatient (REF) | payer OTHER, SELFPAY ==
[2022-11-04 13:01] LABS: Free T4 (Free Thyroxine) 1.12 ng/dL (0.71-1.85); Thyroid Stimulating Hormone 0.32 uIU/mL (0.32-4.0)
[2022-11-05 23:29] LABS: Triiodothyronine T3 Total 123 ng/dL (76-181)
== END 2022-11-04 09:38 | disposition home or self-care (01) ==
LOC: HO.HHCL 09:37
PROVIDERS: Visit Provider Internal Medicine
DX: E05.90 Thyrotoxicosis, unspecified without thyrotoxic crisis or storm (principal)
CPT/HCPCS: 36415; 84439; 84443; 84480

== ENCOUNTER 2022-11-06 10:51 | Outpatient (AMB) | payer OTHER, SELFPAY ==
--- NOTE | 2022-11-06 10:56 | MHC.OFFVIS ---
Intake Intake Visit Reasons: ov-right elbow fx, DOI 09/25/22 Intake Note: Marita is a 61 year old right hand dominant female who presents today for a follow up appointment for her right elbow, DOI 09/25/22. Patient reports having pain some stiffness when sleeping on her stomach with her arms near her face. Having some numbness when boot is on and then she takes her boot off her foot is not numb. Allergies HANK Inhibitors [HANK INHIBITORS] Allergy (Severe, Verified 11/06/22 11:28) ANGIO EDEMA enalapril Allergy (Severe, Verified 11/06/22 11:28) Anaphylaxis erythromycin base [ERYTHROMYCIN BASE] Allergy (Severe, Verified 11/06/22 11:28) HIVES ALL OVER hydromorphone [From DILAUDID] Adverse Reaction (Severe, Verified 11/06/22 11:28) TINGLING, PT DOES NOT LIKE THE FEELING MED GIVES HER HPI ov-right elbow fx, DOI 09/25/22 HPI Details 61-year-old right hand dominant female who presents in the office today for a follow up of a right radial head fracture and right 3rd metatarsal fracture, which occurred on 09/26/2022 status post a trip over concrete while walking to the corner store. She reports pain and stiffness in the shoulder when she sleeps on her stomach with her arm near her face. She reports numbness in the foot when she has the boot on. She confirms she takes the boot on while at home and the numbness subsides. [facility] Medical History Atelectasis COPD (chronic obstructive pulmonary disease) COPD exacerbation Diabetes Goiter Hyperthyroidism Hypoxia Irritable bowel syndrome Lesion of bronchus Multinodular goiter MCKAY (obstructive sleep apnea) Pneumonia Polycythemia Pulmonary nodules Smoker Subclinical hyperthyroidism Tracheal anomaly Tubular adenoma Vitamin D deficiency Surgical History History of back surgery History of cholecystectomy History of esophagogastroduodenoscopy (EGD) History of tonsillectomy History of ureterostomy Hx of colonoscopy S/P lumpectomy, right breast Family History Father No problems noted. Mother No problems noted. Paternal Aunt Diabetes Social History Household Members: Spouse Housing: House Do you presently have visiting nurse or other home services: No Alcohol intake: never Patient Tobacco Use Status: Current everyday Tobacco user Tobacco use type: Cigarette Cigarette Packs Per Day: 0.5 Cigarettes Per Day: 10.0 e-Cigarette/Vaping Use: Never Used Second Hand Smoke Exposure: Yes Substance Use Type: Marijuana Advance Directives Date on File: 01/24/21 service: No Current occupational status: disabled Review of Systems Const All systems reviewed & are unremarkable except as noted in HPI and below Physical Exam Extrem Other: Right elbow: Normal to inspection. No ecchymosis, erythema, or edema. No tenderness to palpation over the olecranon. No tenderness to the medial or lateral epicondyle. No tenderness to palpation over the radial head. NVI. Right foot: Normal to inspection. No ecchymosis, erythema, or edema. No tenderness to palpation over the neck of the 3rd metatarsal fracture. Patient is able to demonstrate dorsiflexion, plantar flexion, pronation and supination. Negative anterior drawer. Sensation intact. Pedal Pulse intact. Assessment & Plan Assessment & Plan (1) Fracture of third metatarsal bone of right foot: Code(s): S92.331A - Displaced fracture of third metatarsal bone, right foot, initial encounter for closed fracture (2) Right radial head fracture: Code(s): S52.121A - Displaced fracture of head of right radius, initial encounter for closed fracture Plan Ms. Lawrence is a 61-year-old right hand dominant female who presents in the office today for a follow up of a right radial head fracture and right 3rd metatarsal fracture, which occurred on 09/26/2022 status post a trip over concrete while walking to the corner store. She reports pain and stiffness in the shoulder when she sleeps on her stomach with her arm near her face. She confirms working gentle ROM as instructed. She reports numbness in the foot when she has the boot on. She confirms she takes the boot on while at home and the numbness subsides. The patient is to discontinue the use of the boot. She may return to normal activities as tolerate. Follow up will be PRN, or sooner if needed. X-rays of the right elbow which were obtained while in the office today and were reviewed by me, Ashleigh Lombardi PA-C, revealed routine healing right radial head fracture. X-rays of the right foot which were obtained while in the office today and were reviewed by me, Ashleigh Lombardi PA-C, revealed routine healing of the right 3 metatarsal neck fracture. Orders: Orders XR elbow RT min 3V Today M25.529 - Pain in unspecified elbow XR foot RT min 3V Today M79.673 - Pain in unspecified foot Patient Instructions: Scribed for Ashleigh Lombardi PA-C by Catalina Cesar medical aide, on 11/06/2022 at 10:55 am, EST. Quality Reporting (2019) Adult ([facility] [address] 138/[birth year]) Smoking risk assessment performed?: Yes Patient Tobacco Use Status: Current everyday Tobacco user Coding Level of Care Code Est Pt Level 3 (40198) Diagnoses Fracture of third metatarsal bone of right foot S92.331A Right radial head fracture S52.121A
== END 2022-11-06 12:29 | disposition home or self-care (01) ==
PROVIDERS: PCP Internal Medicine Geriatric Medicine; Visit Provider Physician Assistant
DX: S92.331D Displaced fracture of third metatarsal bone, right foot, subsequent encounter for fracture with routine healing (principal); S52.121D Displaced fracture of head of right radius, subsequent encounter for closed fracture with routine healing
CPT/HCPCS: 99213

== ENCOUNTER 2022-11-06 11:13 | Outpatient (REF) | payer OTHER, SELFPAY ==
--- NOTE | ~2022-11-06 | XR_ITS ---
EXAMINATION: XR ELBOW, RIGHT CLINICAL INFORMATION: Pain COMPARISON: Elbow radiographs 09/26/2022 TECHNIQUE: AP, lateral, and oblique views of the right elbow. FINDINGS: Impacted fracture of the radial head and neck, not previously seen. Elbow effusion. Joint spaces are maintained. XR/XR elbow RT min 3V IMPRESSION: 1. Impacted fracture of the radial head and neck, not previously seen. 2. Elbow effusion.
--- NOTE | ~2022-11-06 | XR_ITS ---
EXAMINATION: XR FOOT, RIGHT CLINICAL INFORMATION: Pain COMPARISON: 09/26/2022 foot radiographs TECHNIQUE: AP, lateral, and oblique views of the right foot. FINDINGS: Redemonstration of a subtle fracture of the third metatarsal head and neck junction in unchanged alignment. No definite periosteal reaction or bridging bony callus formation. Osteopenia. Mild degenerative changes of the foot similar to prior involving the first metatarsophalangeal and interphalangeal joints. Soft tissues are unremarkable. No tibiotalar joint effusion. Achilles tendon tendon enthesopathy. XR/XR foot RT min 3V IMPRESSION: 1. Redemonstration of a subtle fracture of the third metatarsal head and neck junction in unchanged alignment. No definite periosteal reaction or bridging bony callus formation. 2. Osteopenia. 3. Mild degenerative changes of the foot similar to prior.
== END 2022-11-06 11:14 | disposition home or self-care (01) ==
LOC: HO.HOSX 11:13
PROVIDERS: Visit Provider Physician Assistant
DX: S92.331A Displaced fracture of third metatarsal bone, right foot, initial encounter for closed fracture (principal); S52.121A Displaced fracture of head of right radius, initial encounter for closed fracture
CPT/HCPCS: 73080; 73630; 99212

== ENCOUNTER 2022-11-24 09:17 | Outpatient (AMB) | payer OTHER, SELFPAY ==
[2022-11-24 09:22] VITALS: BP 124/56; PULSE 81; O2SAT 96; BMI 27.3
--- NOTE | 2022-11-24 09:22 | A.OFFVIS_ITS ---
Intake Vital Signs 11/24/22 09:22 Height 5 ft 5 in Weight 164 lb 3.91 oz BMI 27.3 BP 124/56 L Blood Pressure Location Lt brachial Position Sitting Pulse 81 Pulse Source Pulse Oximeter Pulse Oximetry (%) 96 Oxygen Delivery Method Room Air Intake Visit Reasons: COPD Allergies HANK Inhibitors [HANK INHIBITORS] Allergy (Severe, Verified 11/24/22 09:24) ANGIO EDEMA enalapril Allergy (Severe, Verified 11/24/22 09:24) Anaphylaxis erythromycin base [ERYTHROMYCIN BASE] Allergy (Severe, Verified 11/24/22 09:24) HIVES ALL OVER hydromorphone [From DILAUDID] Adverse Reaction (Severe, Verified 11/24/22 09:24) TINGLING, PT DOES NOT LIKE THE FEELING MED GIVES HER HPI HPI Comments History of Present Illness Details The patient is a 61-year-old woman with a known history of COPD and former smoker. She has had multiple hospitalizations for her COPD exacerbations. Also requiring multiple prednisone tapers in currently on chronic prednisone 5 mg daily. She was evaluated in the hospital back in April and in July. She did have chest x-rays demonstrating bilateral hazy opacities. On repeat x-rays from October 2019 it appeared that she still has a persistent opacity in the right infrahilar area. Therefore, CT scan of the chest is warranted. The patient is no longer smoking that she quit 2 years ago. However, she still exposed to secondhand smoke. She continues use her nebulizer 1 or twice a day. And she continues to use her respiratory regimen with partial resolution of her symptoms. She does complaint of shortness of breath [id number] severity with activity. And she also complains of cough usually productive in nature with either wider yellowish sputum. In the office we did have her go for 6 minutes walk test. She was able to ambulate 700 ft. Her Hillary score was 7/10 suggesting that she was in the dyspneic. Her pulse ox was indeed reassuring 94-95% throughout the ambulation. 01/24/2022 the patient is here for a pulmonary follow-up visit. Since we last spoke she has had a tough few weeks. Beginning December she started developing worsening respiratory symptoms with cough. Ultimately now her cough has become more productive greenish in color. During the last time I saw her back in the springtime she did have a COPD exacerbation requiring antibiotics and prednisone. Now with her symptoms getting worse she was able to take 20 mg of prednisone that she had and she did feel little better. She did have a CT scan of the chest sometime in the beginning of December demonstrating areas of ground-glass opacities. It is likely that she possibly had a lower respiratory viral infection and ultimately resulted in a postviral bacterial infection. She continues use her nebulizers. On examination she does have some wheezing and rhonchi. 07/25/2022 the patient is here for pulmonary follow-up visit. Since we last spoke patient ended up going to the [facility] with COPD exacerbation. She had acute respiratory failure home. She was treated for about 3-4 days since she was released. The patient had a chest x-ray demonstrating atelectasis. She was able to wean off the oxygen when she went home. Unfortunately she continues to smoke cigarettes. She also has issues with hyperparathyroidism and she has lost significant amount of weight. She recently saw her primary care doctor was placed on prednisone for COPD exacerbation. She is bringing up some mucus although is clear. The patient has allergies to antibiotics including macrolides. We did go for brief walking oximetry and she did very well maintaining a pulse ox noted. 11/24/2022 the patient is here for pulmonary follow-up visit. Overall the patient has been losing weight. She was diagnosed with apparently Lori disease, hyperthyroidism. She needs to undergo surgery. The patient is here for preoperative evaluation. She continues on the Trelegy inhaler which has been affecting beneficial. She has not required any additional prednisone. She does take 5 mg daily. She recently had a fall and she factor multiple bones but she healed okay which is reassuring. She continues to smoke unfortunately. She is trying to cut down before surgery. She did do well with Chantix in the past she quit smoking for 3 years on it. Then she tried again and cause severe nausea and vomiting and she had to stop it. I do believe that she should restarted or consider a 3rd course possibly after surgery. We did have her undergo pulmonary function studies spirometry in the office. It appears that she does have a severe obstruction consistent with severe COPD. Therefore explained to the patient that she is high risk for perioperative pulmonary complications which include COPD exacerbations, atelectasis, hypoxia, pneumonia and prolonged mechanical ventilation. At least a pulmonary standpoint the patient is medically optimize. The patient is able to proceed with anesthesia and surgery understanding that she is high risk for these potential complications. [facility] Medical History Atelectasis COPD (chronic obstructive pulmonary disease) COPD exacerbation Diabetes Goiter Hyperthyroidism Hypoxia Irritable bowel syndrome Lesion of bronchus Multinodular goiter MCKAY (obstructive sleep apnea) Pneumonia Polycythemia Pulmonary nodules Smoker Subclinical hyperthyroidism Tracheal anomaly Tubular adenoma Vitamin D deficiency Surgical History History of back surgery History of cholecystectomy History of esophagogastroduodenoscopy (EGD) History of tonsillectomy History of ureterostomy Hx of colonoscopy S/P lumpectomy, right breast Family History Father No problems noted. Mother No problems noted. Paternal Aunt Diabetes Social History Household Members: Spouse Housing: House Do you presently have visiting nurse or other home services: No Alcohol intake: never Patient Tobacco Use Status: Current everyday Tobacco user Tobacco use type: Cigarette Cigarette Packs Per Day: 0.5 Cigarettes Per Day: 10.0 e-Cigarette/Vaping Use: Never Used Second Hand Smoke Exposure: Yes Substance Use Type: Marijuana Advance Directives Date on File: 01/24/21 service: No Current occupational status: disabled Review of Systems Const Reports fatigue and Reports weight loss ENT Denies change in voice, Denies lip swelling, Denies mouth pain, Reports nasal congestion, Reports nasal discharge and Denies tongue swelling Card Denies chest pain, Reports dyspnea and Reports dyspnea on exertion Resp Denies chest congestion, Reports cough, Reports dyspnea and Reports dyspnea on exertion GI Denies abdominal pain Musc Denies no additional complaints Neuro Denies Neuro-related abnormal movements Psych Denies no additional complaints Endo Reports fatigue Alberto/Lymph Denies easy bleeding and Denies lymphadenopathy Aller/Immun Denies lip swelling and Denies tongue swelling Physical Exam Vital Signs: Last Vital Signs Pulse 81 11/24/22 09:22 BP 124/56 L 11/24/22 09:22 Pulse Ox 96 11/24/22 09:22 Oxygen Delivery Method Room Air 11/24/22 09:22 BMI result Body Mass Index 27.3 Const General: healthy appearing, no acute distress and well developed Nutritional Appearance: well nourished Orientation/consciousness: patient oriented x3 HEENT Head: Yes normal to inspection, Yes normocephalic and Yes atraumatic Face and sinus: Yes normal facial exam Mouth: Normal oral and palatal mucosa present Throat: Yes posterior oropharynx normal, Yes tonsils normal and Yes uvula midline Eyes General: appearance normal, both eyes and all related structures Neck Neck: Yes normal visual inspection, Yes full ROM and Yes trachea midline Thyroid: Thyroid normal Chest Chest palpation & inspection: normal inspection of the chest Resp Effort & Inspection: normal respiratory effort, able to speak in complete sentences, no tracheal deviation and prolonged expiratory phase Auscultation: diminished lung sounds Cardio Rate: regular rate Heart sounds: S1 normal heart sound present, S2 normal heart sound present, no gallops and no murmurs GI Inspection: No distended Palpation (GI): Soft to palpation Skin General skin exam: elasticity normal, turgor normal and dry skin Neuro General: patient oriented x3 Psych Appearance: grossly normal Mental Status: mental status grossly normal Speech and movement: Normal speech and movement present Affect: normal affect Attitude: cooperative Thought process: Normal thought process present Thought content: Normal thought content present Insight: Good insight present (Psych) Judgement: Good judgement present (Psych) Results Reviewed Results Reviewed: Assessment & Plan Assessment & Plan (1) Pre-op chest exam: Code(s): Z01.811 - Encounter for preprocedural respiratory examination (2) Atelectasis: Code(s): J98.11 - Atelectasis (3) COPD (chronic obstructive pulmonary disease): Code(s): J44.9 - Chronic obstructive pulmonary disease, unspecified Qualifiers: COPD type: unspecified COPD Qualified Code(s): J44.9 - Chronic obstructive pulmonary disease, unspecified (4) MCKAY (obstructive sleep apnea): Code(s): G47.33 - Obstructive sleep apnea (adult) (pediatric) (5) Pulmonary nodules: Code(s): R91.8 - Other nonspecific abnormal finding of lung field Plan The patient is scheduled to undergo surgery for her thyroid condition. The p atient is high risk for perioperative pulmonary complication due to her severe COPD. She is at this point medically optimize with her inhaler therapy and nebulized therapy. Therefore, if the surgery is her only alternative she is able to proceed with surgery understanding the risks. Please provide her with pre and post bronchodilator therapy would recommend minimizing the duration of the general anesthesia. Continue Trelegy Duoneb/Combivent as needed continue Prednisone 5mg daily Needs to stop smoking continue Daliresp F/U 6 months Quality Reporting (2019) Adult ([facility] 138/05/21/68) Smoking risk assessment performed?: Yes Patient Tobacco Use Status: Current everyday Tobacco user Coding Level of Care Code Est Pt Level 4 (05547) Diagnoses Pre-op chest exam Z01.811 Atelectasis J98.11 COPD (chronic obstructive pulmonary disease) J44.9 COPD type: unspecified COPD MCKAY (obstructive sleep apnea) G47.33 Pulmonary nodules R91.8 Time Spent (min) 18
== END 2022-11-24 09:57 | disposition home or self-care (01) ==
PROVIDERS: PCP Internal Medicine Geriatric Medicine; Visit Provider Hospitalist
DX: Z01.811 Encounter for preprocedural respiratory examination (principal); J98.11 Atelectasis; J44.9 Chronic obstructive pulmonary disease, unspecified; G47.33 Obstructive sleep apnea (adult) (pediatric); R91.8 Other nonspecific abnormal finding of lung field
CPT/HCPCS: 99214

== ENCOUNTER → 2022-11-24 09:17 | Outpatient (BNVA) | payer OTHER, SELFPAY | PROVIDERS: PCP Internal Medicine Geriatric Medicine; Visit Provider Hospitalist | DX: Z01.811 Encounter for preprocedural respiratory examination (principal); J44.9 Chronic obstructive pulmonary disease, unspecified; J98.11 Atelectasis; G47.33 Obstructive sleep apnea (adult) (pediatric); R91.8 Other nonspecific abnormal finding of lung field; Z79.52 Long term (current) use of systemic steroids; Z79.899 Other long term (current) drug therapy | CPT/HCPCS: 99212 ==

== ENCOUNTER 2023-01-07 11:11 | Outpatient (REF) | payer OTHER, SELFPAY ==
[2023-01-07 13:39] LABS: Calcium 10.9 mg/dL (8.4-10.2)
[2023-01-08 09:39] LABS: Calcium (PTHI) 10.1 mg/dL (8.6-10.4); PTHI 6 pg/mL (16-77)
== END 2023-01-07 11:12 | disposition home or self-care (01) ==
LOC: HO.HHCL 11:11
PROVIDERS: Surgery; PCP Internal Medicine Geriatric Medicine; Visit Provider Student in an Organized Health Care Education/Training Program
DX: Z13.89 Encounter for screening for other disorder (principal)
CPT/HCPCS: 36415; 82040; 82310; 83970

== ENCOUNTER 2023-01-23 09:52 | Outpatient (REF) | payer OTHER, SELFPAY ==
--- NOTE | ~2023-01-23 | US_ITS ---
EXAMINATION: US RETROPERITONEAL LIMITED (RENAL ONLY) CLINICAL INFORMATION: Calculus of kidney. COMPARISON: CT urogram 05/21/2022. X-ray abdomen KUB 09/26/2014. Renal ultrasound 09/26/2014 and 09/02/2013. TECHNIQUE: Real-time imaging of the kidneys. Limited visualization due to bowel gas. FINDINGS: RIGHT KIDNEY: 10.8 x 4.2 x 4.6 cm (SAG x AP x TRV). Mild right pelvocaliectasis. Echogenic focus characteristic of clustered calcification lower pole right kidney measures 1.0 x 0.5 x 1.0 cm. Renal cortical thickness is normal. Limited visualization. LEFT KIDNEY: 10.8 x 4.8 x 6.3 cm (SAG x AP x TRV). Midpole 0.3 cm calculus. There is a 0.4 cm lower pole calculus. No hydronephrosis. Renal cortical thickness is normal. Limited visualization. US/US renal BI IMPRESSION: 1. Mild right pelvocaliectasis with nephrolithiasis. 2. No left hydronephrosis. Lower pole left renal calculi.
== END 2023-01-23 09:53 | disposition home or self-care (01) ==
LOC: HO.US 09:52
PROVIDERS: PCP Internal Medicine Geriatric Medicine; Visit Provider Nurse Practitioner Family
DX: N20.0 Calculus of kidney (principal)
CPT/HCPCS: 76775

== ENCOUNTER 2023-01-27 10:09 | Outpatient (REF) | payer OTHER, SELFPAY ==
[2023-01-27 11:55] LABS: Albumin Level 3.8 g/dL (3.5-5.0); Calcium 9.7 mg/dL (8.4-10.2)
[2023-01-28 16:39] LABS: Calcium (PTHI) 9.6 mg/dL (8.6-10.4); PTHI 17 pg/mL (16-77)
== END 2023-01-27 10:10 | disposition home or self-care (01) ==
LOC: HO.HHCL 10:09
PROVIDERS: Visit Provider Surgery
DX: E89.0 Postprocedural hypothyroidism (principal)
CPT/HCPCS: 36415; 82040; 82310; 83970

== ENCOUNTER 2023-01-30 04:52 | Inpatient (IN) | payer OTHER, SELFPAY ==
[2023-01-30] VITALS (12 sets, daily range): BP systolic 101–161; BP diastolic 53–73; PULSE 78–97; RESP 13–22; TEMP 36.2–36.8; O2SAT 89–94; BMI 26.6; BMI 29.6
--- NOTE | ~2023-01-30 | XR_ITS ---
EXAMINATION: XR CHEST CLINICAL INFORMATION: Shortness of breath. COMPARISON: 10/20/2022. TECHNIQUE: 2 views of the chest were obtained. FINDINGS: No significant abnormality is noted involving the heart, lungs, mediastinum, bony thorax or soft tissues. XR/XR chest 2V IMPRESSION: No active cardiopulmonary disease. No significant change.
[2023-01-30 05:52] LABS: Influenza A PCR NEGATIVE (Negative); Influenza B PCR NEGATIVE (Negative); Resp Syncy Virus RNA Qual PCR NEGATIVE (Negative); SARS COV2 PCR INHOUSE NEGATIVE (Negative)
--- NOTE | 2023-01-30 06:35 | ED_ITS ---
HPI - SOB/Dyspnea General Chief Complaint: Dyspnea Stated Complaint: Sob Time Seen by Provider: 01/30/23 06:34 Source: patient, RN notes reviewed and old records reviewed History of Present Illness HPI Narrative: 61-year-old female with a history of COPD, diabetes, diabetic neuropathy, CAD s/p [place], hyperthyroid, presented to the ED complaining of productive cough, SOB, pain with coughing and deep breathing x2 days. Patient states she is unable to lie flat. States this is not feel like her typical COPD, is on baseline 5 mg prednisone daily, admits to taking 10 mg today. Denies fever/chills, recent travel, pedal edema, calf tenderness, sick contacts MD elicited complaint: shortness of breath, cough and pain with inspiration Related Data Home Medications Medication Instructions Recorded Confirmed aspirin 81 mg tablet,delayed 81 mg PO DAILY 12/24/19 10/21/22 release atorvastatin 80 mg tablet 80 mg PO BEDTIME 12/24/19 10/21/22 carvedilol 6.25 mg tablet 6.25 mg PO BID 12/24/19 10/21/22 cetirizine 10 mg tablet 10 mg PO DAILY 12/24/19 10/21/22 montelukast 10 mg tablet 10 mg PO BEDTIME 12/24/19 10/21/22 omeprazole 20 mg capsule,delayed 20 mg PO BID@0630,1630 12/24/19 10/21/22 release ipratropium 20 mcg-albuterol 100 1 puff inhalation QID 01/02/20 10/21/22 mcg/actuation mist for inhalation (Combivent Respimat) docusate sodium 100 mg capsule 1 cap PO BEDTIME PRN Constipation 01/24/21 10/21/22 blood sugar diagnostic (FreeStyle #10 ea 10/07/21 10/21/22 Lite Strips) lancets 33 gauge (TRUEplus Lancets) #100 ea 10/07/21 10/21/22 naloxone 4 mg/actuation nasal spray 1 spray intranasal ONCE PRN Opioid 10/07/21 10/21/22 Overdose insulin lispro 100 unit/mL 1 sliding scale dose subcut TIDAC 11/02/21 10/21/22 subcutaneous pen (Humalog KwikPen (U-100) Insulin) ipratropium 0.5 mg-albuterol 3 mg 3 ml inhalation QID PRN 11/02/21 10/21/22 (2.5 mg base)/3 mL nebulization Respiratory Distress soln oxycodone-acetaminophen 7.5 mg-325 1 tab PO Q6H PRN severe pain 06/23/22 10/21/22 mg tablet fluticasone propionate 50 2 spray intranasal DAILY PRN 07/25/22 10/21/22 mcg/actuation nasal Congestion spray,suspension dulaglutide 1.5 mg/0.5 mL 1.5 mg subcut REESE@0900 08/06/22 10/21/22 subcutaneous pen injector (Trulicity) albuterol sulfate 90 mcg/actuation 2 puff inhalation Q6H PRN wheezing 10/21/22 10/21/22 aerosol inhaler (Ventolin HFA) Previous Rx's Medication Instructions Recorded insulin glargine 100 unit/mL (3 30 unit (0.3 mL) subcut BID #15 mL 02/12/22 mL) subcutaneous pen (Lantus Solostar U-100 Insulin) pyridoxine (vitamin B6) 100 mg 100 mg PO DAILY 90 days #90 tabs 08/06/22 tablet roflumilast 500 mcg tablet 500 mcg PO DAILY #30 tabs 08/14/22 Trelegy Ellipta 100 mcg-62.5 1 ea inhalation DAILY #60 ea 09/03/22 mcg-25 mcg powder for inhalation ([id number]) cholecalciferol (vitamin D3) 50 50 mcg PO DAILY 90 days #90 caps 09/12/22 mcg (2,000 unit) capsule methocarbamol 750 mg tablet 750 mg PO Q8H PRN for muscle spasm 09/12/22 30 days #90 tabs pregabalin 75 mg capsule 75 mg PO BID pain 30 days #60 caps 10/13/22 prednisone 5 mg tablet 5 mg PO DAILY 30 days #30 tabs 10/17/22 prednisone 10 mg tablet See Taper PO DIRECTED #30 tabs 10/23/22 methimazole 5 mg tablet 10 mg (2 x 5 mg) PO DAILY 30 days 11/03/22 #60 tabs lidocaine-prilocaine 2.5 %-2.5 % 1 appl topical ONCE pain #30 grams 01/10/23 topical cream Allergies Allergy/AdvReac Type Severity Reaction Status Date / Time HANK Inhibitors Allergy Severe ANGIO Verified 11/24/22 09:24 [HANK INHIBITORS] EDEMA enalapril Allergy Severe Anaphylaxis Verified 11/24/22 09:24 erythromycin base Allergy Severe HIVES ALL Verified 11/24/22 09:24 [ERYTHROMYCIN BASE] OVER hydromorphone [From DILAUDID] AdvReac Severe TINGLING, Verified 11/24/22 09:24 PT DOES NOT LIKE THE FEELING MED GIVES HER Review of Systems 2 Review of Systems: Constitutional:No Fever, No Chills, No Fatigue, No Malaise ENT/Mouth: No Hearing loss, No Ear Pain, No Nasal Congestion, No Sinus Pain, No Hoarseness, No sore throat, No Rhinorrhea, No Swallowing Difficulty Eyes: No Eye Pain, No Swelling, No Redness, No Vision Changes Cardiovascular: + Chest Pain, + SOB, No Dyspnea on Exertion, + Orthopnea, No Edema, No Palpitations Respiratory: + Cough, + Sputum, No Wheezing,+ Dyspnea Gastrointestinal: No Nausea, No Vomiting, No Diarrhea, No Constipation, No Abdominal pain Musculoskeletal: No joint pain, No Myalgias, No Joint Swelling Skin: No Skin Lesions, No rash Neuro: No Weakness, No Headache Yes all other systems are reviewed and are negative Constitutional: Constitutional: Reports as per [facility] Past Medical History Attestation statement: The following information was validated with the patient. Source: old records reviewed Medical History Tubular adenoma Diabetes MCKAY (obstructive sleep apnea) Irritable bowel syndrome Hyperthyroidism Polycythemia Smoker Hypoxia COPD exacerbation Lesion of bronchus Tracheal anomaly Multinodular goiter Vitamin D deficiency Atelectasis Subclinical hyperthyroidism Goiter Pneumonia Pulmonary nodules COPD (chronic obstructive pulmonary disease) Surgical History History of esophagogastroduodenoscopy (EGD) Hx of colonoscopy History of back surgery History of ureterostomy S/P lumpectomy, right breast History of cholecystectomy History of tonsillectomy Family History Family History Father No problems noted. Mother No problems noted. Paternal Aunt Diabetes Social History Social History Household Members: Spouse Housing: House Do you presently have visiting nurse or other home services: No Alcohol intake: never Patient Tobacco Use Status: Current everyday Tobacco user Tobacco use type: Cigarette Cigarette Packs Per Day: 0.5 Cigarettes Per Day: 10.0 e-Cigarette/Vaping Use: Never Used Second Hand Smoke Exposure: Yes Substance Use Type: Marijuana Advance Directives Date on File: 01/24/21 service: No Current occupational status: disabled Physical Exam 2 Vital Signs: Vital Signs: Last Vital Signs Temp 98.1 F 01/30/23 10:12 Pulse 80 01/30/23 10:12 Resp 13 01/30/23 10:12 BP 101/53 L 01/30/23 10:12 Pulse Ox 91 L 01/30/23 10:12 O2 Del Method Room Air 01/30/23 10:12 BMI result Body Mass Index 26.6 Const: General: cooperative, healthy appearing and no acute distress O rientation/consciousness: patient oriented x3 Limitations: no limitations HEENT: Head: Yes normal to inspection and Yes atraumatic Ears: hearing grossly normal bilaterally General nose exam: Normal external nose present Face and sinus: Yes normal facial exam Eyes: General: appearance normal, both eyes and all related structures EOM: EOMs intact bilaterally Neck: Neck: Yes normal visual inspection and Yes no meningeal signs Resp: Effort & Inspection: normal respiratory effort and no respiratory distress Auscultation: wheezes expiratory wheezes and throughout Cardio: Rate: regular rate Heart sounds: S1 normal heart sound present and S2 normal heart sound present GI: Inspection: Yes normal to inspection Palpation (GI): Soft to palpation, nontender, no guarding and not rigid : General: Yes no CVA tenderness Back/Spine/Pelvis: Back: no CVA tenderness Skin: Rashes: no rashes Wounds: no wounds Neuro: General: patient oriented x3, tone normal and no meningeal signs C ranial nerves: Yes CN's II-XII intact bilaterally Gait exam (Neuro): Normal gait present Extrem: General: Yes normal to inspection, Yes no pedal edema and Yes no calf tenderness Course Course Course Narrative: XR chest 2V IMPRESSION: No active cardiopulmonary disease. No significant change. -COVID/FLU/RSV negative -0737--on re-evaluation patient still with diffuse expiratory wheeze. Better air movement. Additional DuoNeb and IV Solu-Medrol ordered -0811--leukocytosis of 20.6 > likely from chronic steroid use however will obtain/blood cultures & give empiric IV Rocephin -0928--on re-evaluation patient is satting 89% on room air at rest, with good breaths O2sat pops up quickly however still reports SOB. Will give IV magnesium and plan for admission Medications Administered Generic Name Dose Route Start Last Admin Trade Name Freq PRN Reason Stop Dose Admin Magnesium Sulfate 2 gm in 50 mls @ 25 mls/hr 01/30/23 09:28 01/30/23 10:08 Magnesium Sulfate/H2o IV 01/30/23 11:27 25 mls/hr ONCE ONE Administration Discontinued Medications Generic Name Dose Route Start Last Admin Trade Name Freq PRN Reason Stop Dose Admin Benzonatate 100 mg 01/30/23 06:53 01/30/23 09:02 Benzonatate 100 Mg Capsule PO 01/30/23 06:54 100 mg ONCE ONE Administration Albuterol Sulfate 2.5 mg/ 0 mg 01/30/23 06:52 01/30/23 06:55 Albuterol/Ipratropium 3 ml INHALE 01/30/23 06:53 5 dose ONCE ONE Administration Albuterol Sulfate 2.5 mg/ 0 mg 01/30/23 07:36 01/30/23 08:03 Albuterol/Ipratropium 3 ml INHALE 01/30/23 07:37 2.5 dose ONCE ONE Administration Ceftriaxone Sodium 1 gm/ 50 mls @ 100 mls/hr 01/30/23 08:10 01/30/23 09:35 Sodium Chloride IV 01/30/23 08:39 Infused ONCE ONE Infusion Methylprednisolone Sodium Succinate 125 mg 01/30/23 07:36 01/30/23 09:02 Methylprednisolone Sod Succ 125 Mg/2 Ml Vial IVPUSH 01/30/23 07:37 125 mg ONCE ONE Administration Medical Decision Making Medical Decision Making MDM Narrative: 61-year-old female with a history of COPD, diabetes, diabetic neuropathy, CAD s/p [place], hyperthyroid, presented to the ED complaining of productive cough, SOB, pain with coughing and deep breathing x2 days. On exam initially tachypneic, satting 92-94% on RA, diffuse expiratory wheeze noted, no appreciable pedal edema/calf tenderness. Coarse cough noted. Concern for COPD exacerbation vs pneumonia vs viral syndrome vs bronchitis vs ACS/PE. Rule out CHF. Low suspicion for severe sepsis at this time. Plan: EKG, labs, viral testing, CXR, ED bronch protocol, re-evaluate Please refer to course for remaining clinical decision making, interpretation of labs/imaging results, and discussions with consultants and/or family members. Differential Diagnosis Differential Diagnoses: The differential diagnosis associated with the presentation includes As above Admission/Observation Consideration of admission/observation: Escalation of care including admission/observation considered Consult Healthcare Provider Management of the patient was discussed with: Hospitalist Lab Data MDM Lab Attestation statement: I reviewed the patient's lab results. 01/30/23 07:56 01/30/23 07:56 Labs: Lab Results 01/30/23 01/30/23 01/30/23 Range/Units 05:10 07:56 08:24 WBC 20.6 H (4.8-10.8) X10*3/uL RBC 5.06 (4.20-5.50) X10*6/uL Hgb 14.7 (12.0-16.0) g/dl Hct 44.8 (37.0-47.0) % MCV 88.5 (80.0-98.0) fL MCH 29.1 (27.0-33.0) pg MCHC 32.8 (31.0-35.0) g/dl RDW 13.8 (11.0-16.0) % Plt Count 217 (160-400) X10*3/uL MPV 10.1 (9.4-12.3) fL Immature Gran % (Auto) 0.5 H (0.0-0.4) % Neut % (Auto) 64.3 (45-73) % Lymph % (Auto) 24.2 (20-40) % [place] % (Auto) 8.1 (2-11) % Eos % (Auto) 2.2 (0-4) % Baso % (Auto) 0.7 (0-2) % Lymph # (Auto) 5.0 H (1.2-4.9) X10*3/uL [place] # (Auto) 1.7 H (0.1-1.2) X10*3/uL Eos # (Auto) 0.5 H (0.0-0.4) X10*3/uL Baso # (Auto) 0.2 (0.0-0.2) X10*3/uL Abs Immat Gran (auto) 0.10 H (0.00-0.03) X10*3/uL Absolute Neuts (auto) 13.2 H (2.0-8.3) x10*3/uL Absolute Nucleated RBC 0.000 (0.0-0.012) X10*3/uL Nucleated RBC % (auto) 0.0 (0.0-0.2) /100WBC Smear Tech's Comments VERIFIED PT 10.8 L (11.1-13.3) SEC INR 0.9 (0.9-1.1) D-Dimer High Sensitivty < 150 NG/ML Sodium 143 (135-145) mmol/L Potassium 3.7 (3.3-5.1) mmol/L Chloride 109 H (96-108) mmol/L Carbon Dioxide 24 (22-29) mmol/L Anion Gap 14 (12-20) BUN 13 (9-16) mg/dL Creatinine 0.70 (0.5-1.4) mg/dL Estim Creat Clear Calc 82.1 Estimated GFR > 60 Random Glucose 111 (60-115) mg/dL Lactic Acid 1.4 (0.5-2.0) mmol/L Calcium 8.9 D (8.4-10.2) mg/dL Total Bilirubin 0.5 (0.0-1.0) mg/dL Direct Bilirubin 0.2 (0.0-0.5) mg/dL AST 22 (5-31) U/L ALT 22 (0-31) U/L Alkaline Phosphatase 65 (39-117) U/L Troponin I High Sens 3.9 (<3.5-17.0) ng/L B-Natriuretic Peptide 38 (<100) pg/mL Total Protein 6.6 (6.5-8.0) g/dL Albumin 3.6 (3.5-5.0) g/dL Influenza Type A (PCR) NEGATIVE (Negative) Influenza Type B (PCR) NEGATIVE (Negative) RSV RNA Qual (PCR) NEGATIVE (Negative) SARS-CoV-2 RNA (RT-PCR) NEGATIVE (Negative) Independent Interpretation I performed an independent interpretation of an: EKG and Plain X-Ray Radiology Impression Discussion of test interpretation with radiology: I have reviewed the radiologist's reading. External Record Review External record reviewed: Inpatient record, Office record, Outpatient record, Prior outpatient labs, Prior outpatient radiology, Primary care record and Outside ED record Tests considered The following testing was considered but not selected: As above Chronic Conditions Patient?s care impacted by: Other (COPD) Critical Care Time Critical Care Time Critical Care Time: Yes Total Critical Care Time: 40 Attestation: I have personally provided critical care time exclusive of time spent on separately billable procedures. Time includes review of lab data, radiology results, discussion with consultants, and monitoring for potential decompensation. Intervention performed as documented. Discharge Plan Discharge Clinical Impression: COPD with acute exacerbation Patient Disposition: Admitted As Inpatient
--- NOTE | 2023-01-30 06:44 | ECG_ITS ---
Test Reason : SOB Blood Pressure : / mmHG Vent. Rate : 094 BPM Atrial Rate : 094 BPM P-R Int : 140 ms QRS Dur : 092 ms QT Int : 364 ms P-R-T Axes : 070 -25 025 degrees QTc Int : 455 ms Normal sinus rhythm Incomplete right bundle branch block Abnormal ECG When compared with ECG of 20-OCT-2022 22:54, Questionable change in initial forces of Inferior leads Referred By: Meenakshi Florence Electronically Signed By:MEENAKSHI LOTT MD
[2023-01-30] MEDS: Albuterol Sulfate 2.5 MG, Albuterol/Iprat 2.5/0.5MG 3 ML 3 ML INHALE ×2 (06:55→08:03)
[2023-01-30 08:04] LABS: Basophils Absolute Auto 0.2 X10*3/uL (0.0-0.2); Basophils Percent Auto 0.7 % (0-2); Eosinophils Absolute Auto 0.5 X10*3/uL (0.0-0.4); Eosinophils Percent Auto 2.2 % (0-4); Hematocrit 44.8 % (37.0-47.0); Hemoglobin 14.7 g/dl (12.0-16.0); Imm Gran Pct Auto 0.5 % (0.0-0.4); Lymphocytes Percent Auto 24.2 % (20-40); MANUAL DIFF FLAG SCAN; Mean Corpuscular HGB Conc 32.8 g/dl (31.0-35.0); Mean Corpuscular Hemoglobin 29.1 pg (27.0-33.0); Mean Corpuscular Volume 88.5 fL (80.0-98.0); Mean Platelet Volume 10.1 fL (9.4-12.3); Monocytes Absolute Auto 1.7 X10*3/uL (0.1-1.2); Monocytes Percent Auto 8.1 % (2-11); Neutrophils Absolute Auto 13.2 x10*3/uL (2.0-8.3); Neutrophils Percent Auto 64.3 % (45-73); Platelet Count 217 X10*3/uL (160-400); Red Blood Count 5.06 X10*6/uL (4.20-5.50); Red Cell Distribution Width 13.8 % (11.0-16.0); SCAN SMEAR FLAG 1; White Blood Count 20.6 X10*3/uL (4.8-10.8)
[2023-01-30 08:18] LABS: INTERNATIONAL NORM RATIO 0.9 (0.9-1.1); Prothrombin Time 10.8 SEC (11.1-13.3)
[2023-01-30 08:19] LABS: Alanine Aminotransferase 22 U/L (0-31); Albumin Level 3.6 g/dL (3.5-5.0); Alkaline Phosphatase 65 U/L (39-117); Anion Gap 14 (12-20); Aspartate Amino Transferase 22 U/L (5-31); Bilirubin Direct 0.2 mg/dL (0.0-0.5); Bilirubin Total 0.5 mg/dL (0.0-1.0); Blood Urea Nitrogen 13 mg/dL (9-16); Calcium 8.9 mg/dL (8.4-10.2); Carbon Dioxide 24 mmol/L (22-29); Chloride 109 mmol/L (96-108); Creatinine Clr Calc Pharmacy 82.1; Estimated Glomerular Filt Rate > 60; Glucose Random 111 mg/dL (60-115); Potassium 3.7 mmol/L (3.3-5.1); Sodium 143 mmol/L (135-145); Total Protein 6.6 g/dL (6.5-8.0)
[2023-01-30 08:22] LABS: B Type Natriuretic Peptide 38 pg/mL (<100)
[2023-01-30 08:24] LABS: Troponin-I High Sensitivity 3.9 ng/L (<3.5-17.0)
[2023-01-30 08:35] LABS: D Dimer High Sensitivity < 150 NG/ML
[2023-01-30 08:39] LABS: Lactic Acid 1.4 mmol/L (0.5-2.0)
[2023-01-30 08:39] LABS: SLIDE REVIEW VERIFIED
[2023-01-30] MEDS: Benzonatate 100 MG CAPSULE PO ×2 (09:02→22:38)
[2023-01-30] MEDS: methylPREDNISolone Sod Succ 125 MG/2 ML VIAL IVPUSH (09:02)
[2023-01-30] MEDS: cefTRIAXone sodium 1 GM in 0.9 % Sodium Chloride 50 ML IV (09:02)
[2023-01-30] MEDS: Magnesium Sulfate/H2O 2 GM/50 ML PIGGYBACK IV (10:08)
--- NOTE | 2023-01-30 11:22 | P.HPHOSP_ITS ---
History of Present Illness Date of Service: 01/30/23 Chief Complaint: Dysppnea, hypoxia A 62 years old lady with PMH of COPD, DM, CAD , Hyperthyroid among others who presented with 3 days SOB and dyspnea. The patient reportes cough, dyspnea, wheezing and being unable to lay flat. No chest pain, palpitations, nausea, vomiting, diarrhea or urinary symptoms. In Ed was found to have hypoxia to mid 80s on room air Admitted for further evaluation and treatment. Review of Systems 2 Review of Systems: No fever, chills or weakness No chest pain, palpitation reporting shortness of breath or coughing No abdominal pain, nausea or vomiting No urinary symptoms No any rash or wounds PMFSH Medical History Tubular adenoma Diabetes MCKAY (obstructive sleep apnea) Irritable bowel syndrome Hyperthyroidism Polycythemia Smoker Hypoxia COPD exacerbation Lesion of bronchus Tracheal anomaly Multinodular goiter Vitamin D deficiency Atelectasis Subclinical hyperthyroidism Goiter Pneumonia Pulmonary nodules COPD (chronic obstructive pulmonary disease) Family History Father No problems noted. Mother No problems noted. Paternal Aunt Diabetes Surgical History History of esophagogastroduodenoscopy (EGD) Hx of colonoscopy History of back surgery History of ureterostomy S/P lumpectomy, right breast History of cholecystectomy History of tonsillectomy Social History Household Members: Spouse Housing: House Do you presently have visiting nurse or other home services: No Alcohol intake: never Patient Tobacco Use Status: Current everyday Tobacco user Tobacco use type: Cigarette Cigarette Packs Per Day: 0.5 Cigarettes Per Day: 6 Smoked in Last 30 Days: Yes e-Cigarette/Vaping Use: Never Used Patient Interested in Nicotine Replacement: Yes Second Hand Smoke Exposure: Yes Substance Use Type: Marijuana Advance Directives: Yes Advance Directives on File: Yes Advance Directives Date on File: 01/24/21 service: No Current occupational status: disabled Meds Allergies Allergy/AdvReac Type Severity Reaction Status Date / Time HANK Inhibitors Allergy Severe ANGIO Verified 11/24/22 09:24 [HANK INHIBITORS] EDEMA enalapril Allergy Severe Anaphylaxis Verified 11/24/22 09:24 erythromycin base Allergy Severe HIVES ALL Verified 11/24/22 09:24 [ERYTHROMYCIN BASE] OVER hydromorphone [From DILAUDID] AdvReac Severe TINGLING, Verified 11/24/22 09:24 PT DOES NOT LIKE THE FEELING MED GIVES HER Active Medications: Current Medications Magnesium Sulfate (Magnesium Sulfate/H2o) 2 gm in 50 mls @ 25 mls/hr IV ONCE ONE Stop: 01/30/23 11:27 Last Admin: 01/30/23 10:08 Dose: 25 mls/hr Home Medications Medication Instructions Recorded Confirmed Last Taken Type aspirin 81 mg tablet,delayed 81 mg PO BEDTIME 12/24/19 01/30/23 01/29/23 History release atorvastatin 80 mg tablet 80 mg PO BEDTIME 12/24/19 01/30/23 01/29/23 History carvedilol 6.25 mg tablet 6.25 mg PO BID 12/24/19 01/30/23 01/29/23 History cetirizine 10 mg tablet 10 mg PO DAILY 12/24/19 01/30/23 01/29/23 History montelukast 10 mg tablet 10 mg PO BEDTIME 12/24/19 01/30/23 01/29/23 History omeprazole 20 mg capsule,delayed 20 mg PO BID@0630,1630 12/24/19 01/30/23 01/29/23 History release ipratropium 20 mcg-albuterol 100 2 puff inhalation BID 01/02/20 01/30/23 01/29/23 History mcg/actuation mist for inhalation (Combivent Respimat) docusate sodium 100 mg capsule 1 cap PO BEDTIME Constipation 01/24/21 01/30/23 01/29/23 History blood sugar diagnostic (FreeStyle #10 ea 10/07/21 10/21/22 10/20/22 09:00 History Lite Strips) lancets 33 gauge (TRUEplus Lancets) #100 ea 10/07/21 10/21/22 10/20/22 09:00 History naloxone 4 mg/actuation nasal spray 1 spray intranasal ONCE PRN Opioid 10/07/21 01/30/23 01/29/23 History Overdose insulin lispro 100 unit/mL 1 sliding scale dose subcut TIDAC 11/02/21 01/30/23 01/29/23 History subcutaneous pen (Humalog KwikPen (U-100) Insulin) ipratropium 0.5 mg-albuterol 3 mg 3 ml inhalation BID Respiratory 11/02/21 01/30/23 01/29/23 History (2.5 mg base)/3 mL nebulization Distress soln oxycodone-acetaminophen 7.5 mg-325 1 tab PO Q6H severe pain 06/23/22 01/30/23 01/30/23 History mg tablet fluticasone propionate 50 2 spray intranasal DAILY PRN 07/25/22 01/30/23 Unknown History mcg/actuation nasal Congestion spray,suspension dulaglutide 1.5 mg/0.5 mL 1.5 mg subcut REESE@0900 08/06/22 01/30/23 01/25/23 History subcutaneous pen injector (Trulicity) albuterol sulfate 90 mcg/actuation 2 puff inhalation Q6H PRN wheezing 10/21/22 01/30/23 01/29/23 History aerosol inhaler (Ventolin HFA) calcitriol 0.25 mcg capsule 0.25 mcg PO DAILY 01/30/23 01/30/23 01/29/23 History calcium citrate 315 mg 1 tab PO BID@1100,2100 01/30/23 01/30/23 01/29/23 History calcium-vitamin D3 6.25 mcg (250 unit) tablet fluticasone fur. 100 mcg-umeclid 1 ea inhalation DAILY 01/30/23 01/30/23 01/29/23 History 62.5 mcg-vilant 25 mcg inhalat.powder (Trelegy Ellipta) ipratropium 0.5 mg-albuterol 3 mg 3 ml inhalation QID PRN Shortness 01/30/23 01/30/23 01/29/23 History (2.5 mg base)/3 mL nebulization Of Breath Or Wheezing soln levothyroxine 112 mcg tablet 112 mcg PO DAILY@0600 01/30/23 01/30/23 01/29/23 History methocarbamol 750 mg tablet 750 mg PO Q8H for muscle spasm 01/30/23 01/30/23 01/29/23 History sennosides 8.6 mg tablet (senna) 17.2 mg PO DAILY 01/30/23 01/30/23 01/29/23 History varenicline 0.5 mg (11)-1 mg (42) 1 ea PO BID 01/30/23 01/30/23 01/29/23 History tablets in a dose pack Physical Exam 2 Vital Signs and Narrative: Vital Signs: Last Vital Signs Temp 98.1 F 01/30/23 10:12 Pulse 80 01/30/23 10:12 Resp 13 01/30/23 10:12 BP 101/53 L 01/30/23 10:12 Pulse Ox 91 L 01/30/23 10:12 O2 Del Method Room Air 01/30/23 10:12 BMI result Body Mass Index 26.6 Const: Other: Constitutional : Awake, interactive, not in distress Neck : Normal inspection, Supple Cardiovascular : RRR, no JVP, no lower extremity edema Respiratory : decreased air entry bilaterally, expiratory wheezes with ronchi Gastrointestinal: soft, lax, Normal bowel sounds, Non tender Skin : Warm, Dry Neurological : Alert & oriented x3, No focal deficit Results Labs 01/30/23 07:56 01/30/23 07:56 Labs: Laboratory Results - last 24 hr 01/30/23 01/30/23 01/30/23 05:10 07:56 08:24 MCV 88.5 MCH 29.1 MCHC 32.8 RDW 13.8 Plt Count 217 MPV 10.1 Immature Gran % (Auto) 0.5 H Neut % (Auto) 64.3 Lymph % (Auto) 24.2 [place] % (Auto) 8.1 Eos % (Auto) 2.2 Baso % (Auto) 0.7 Lymph # (Auto) 5.[address] [place] # (Auto) 1.7 H Eos # (Auto) 0.5 H Baso # (Auto) 0.2 Abs Immat Gran (auto) 0.10 H Absolute Neuts (auto) 13.2 H Absolute Nucleated RBC 0.000 Nucleated RBC % (auto) 0.0 Smear Tech's Comments VERIFIED PT 10.8 L INR 0.9 D-Dimer High Sensitivty < 150 Anion Gap 14 Estim Creat Clear Calc 82.1 Estimated GFR > 60 Random Glucose 111 Lactic Acid 1.4 Calcium 8.9 D Total Bilirubin 0.5 Direct Bilirubin 0.2 AST 22 ALT 22 Alkaline Phosphatase 65 B-Natriuretic Peptide 38 Total Protein 6.6 Albumin 3.6 Influenza Type A (PCR) NEGATIVE Influenza Type B (PCR) NEGATIVE RSV RNA Qual (PCR) NEGATIVE SARS-CoV-2 RNA (RT-PCR) NEGATIVE Imaging Radiologist's Impressions: Impressions Chest X-Ray 01/30/23 05:10 IMPRESSION: No active cardiopulmonary disease. No significant change. Assessment and Plan (1) COPD with acute exacerbation: Status: Acute Plan A 62 years old lady with PMH of COPD, DM, CAD , Hyperthyroid among others who presented with 3 days SOB and dyspnea. # COPD exacerbation Methylprednisone Nebulizers Oxygen as needed Home inhalors # Insulin-dependent diabetes mellitus with hyperglycemia continue home basal regimen.? sliding scale insulin. # CAD s/p stent Continue aspirin and high-intensity statin # HTN continue home p.o. antihypertensives # Chronic back pain continue po Oxycodone # Tobacco use disorder nicotine patch. Counseled against use DVT prophylaxis: Lovenox 40mg daily Quality Stroke Does the patient have a stroke diagnosis?: No VTE Prior VTE?: No VTE Risk Level:: Medical - moderate - high VTE Device Contraindication: Treatment Not Indicated VTE Drug Contraindication: N/A - Med Ordered
--- NOTE | 2023-01-30 11:28 | PHA.MEDREC ---
Pharmacy Consult ? Medication Reconciliation Pharmacy has completed the medication reconciliation. Spoke to patient at bedside, who had list on her phone. Noted she is careful not to take any calcium containing supplements with her thyroid medication. Pt also stated concern that she was given methylprednisone and has not had her blood sugars checked, will notify provider. Patient list matches claim history, however some of the ways she takes the medications at home were different and are reflected in the med rec.
--- NOTE | 2023-01-30 11:46 | PC.NURSE ---
late entry: assumed care of pt at 0700. pt a&o x4, pleasant, calm, and cooperative. HOB elevated for pt comfort. pt sts she has not been able to sleep in a couple days. pt has 20G in LAC, patent. pt medicated per may. pt ambulates to bathroom without difficulty. sating 93% on room air, 18 RR, even/unlabored. given snack and tolerated well. call hanley within pt reach. plan of care ongoing.
[2023-01-30] MEDS: Albuterol/Iprat 2.5/0.5MG 3 ML AMPUL.NEB INHALE ×3 (11:54→19:55)
[2023-01-30 11:56] LABS: Glucose, Whole Blood 183 mg/dL (60-115)
--- NOTE | 2023-01-30 13:05 | PC.NURSE ---
[id number] report given to HODA Goetz. awaiting pt transport.
[2023-01-30] MEDS: Insulin Lispro 100 UNIT/ML 3 ML VIAL SUBCUT ×3 (13:10→20:16)
[2023-01-30] MEDS: Enoxaparin Sodium 40 MG/0.4 ML SYRINGE SUBCUT (13:11)
[2023-01-30] MEDS: 0.9 % Sodium Chloride Flush 3 ML SYRINGE IVFLUSH ×2 (15:40→20:19)
[2023-01-30 16:11] LABS: Glucose, Whole Blood 428 mg/dL (60-115)
[2023-01-30] MEDS: Nicotine 7 MG PATCH.TD24 TRANSDERMA (16:34)
[2023-01-30] MEDS: Omeprazole 20 MG CAPSULE.DR PO (16:35)
[2023-01-30 19:50] LABS: Glucose, Whole Blood 370 mg/dL (60-115)
[2023-01-30] MEDS: Insulin Glargine,Hum.rec.anlog 100 UNIT/ML 10 ML VIAL 25 UNIT SUBCUT (20:16)
[2023-01-30] MEDS: Atorvastatin Calcium 80 MG TABLET PO (20:17)
[2023-01-30] MEDS: Docusate Sodium 100 MG CAPSULE PO (20:17)
[2023-01-30] MEDS: Aspirin Enteric Coated 81 MG TABLET.DR PO (20:17)
[2023-01-30] MEDS: Montelukast Sodium 10 MG TABLET PO (20:17)
[2023-01-30] MEDS: methocarbamoL 750 MG TABLET PO (20:17)
[2023-01-30] MEDS: Pregabalin 75 MG CAPSULE PO (20:17)
[2023-01-30] MEDS: carvediloL 6.25 MG TABLET PO (20:22)
[2023-01-30] MEDS: Acetaminophen 325 MG TABLET 650 MG PO (22:42)
[2023-01-30] MEDS: oxyCODONE HCl Immed Release 5 MG TABLET PO (22:43)
--- NOTE | 2023-01-30 23:33 | PC.NURSE ---
Pt had POC at bedtime = 370, Dr. Beck was made aware, Lispro 10 units given SC, snack served. Pt c/o persistent cough, Dr. Beck notified, Tessalon josiah given, with good effect.
[2023-01-31] VITALS (11 sets, daily range): BP systolic 133–165; BP diastolic 67–77; PULSE 76–93; RESP 14–18; TEMP 36.1–36.8; O2SAT 90–96
[2023-01-31] MEDS: Albuterol/Iprat 2.5/0.5MG 3 ML AMPUL.NEB INHALE ×5 (03:41→20:01)
[2023-01-31 05:37] LABS: Hematocrit 43.1 % (37.0-47.0); Hemoglobin 14.3 g/dl (12.0-16.0); Mean Corpuscular HGB Conc 33.2 g/dl (31.0-35.0); Mean Corpuscular Hemoglobin 29.1 pg (27.0-33.0); Mean Corpuscular Volume 87.6 fL (80.0-98.0); Mean Platelet Volume 10.9 fL (9.4-12.3); Platelet Count 234 X10*3/uL (160-400); Red Blood Count 4.92 X10*6/uL (4.20-5.50); Red Cell Distribution Width 13.6 % (11.0-16.0); White Blood Count 15.8 X10*3/uL (4.8-10.8)
[2023-01-31] MEDS: Levothyroxine Sodium 112 MCG TABLET PO (05:42)
[2023-01-31] MEDS: Omeprazole 20 MG CAPSULE.DR PO ×2 (05:42→16:42)
[2023-01-31 05:57] LABS: Anion Gap 17 (12-20); Blood Urea Nitrogen 20 mg/dL (9-16); Calcium 9.1 mg/dL (8.4-10.2); Carbon Dioxide 25 mmol/L (22-29); Chloride 102 mmol/L (96-108); Creatinine Clr Calc Pharmacy 69.4; Estimated Glomerular Filt Rate > 60; Glucose Random 303 mg/dL (60-115); Potassium 3.8 mmol/L (3.3-5.1); Sodium 140 mmol/L (135-145)
[2023-01-31 07:19] LABS: Glucose, Whole Blood 251 mg/dL (60-115)
[2023-01-31] MEDS: Insulin Lispro 100 UNIT/ML 3 ML VIAL SUBCUT ×4 (08:00→19:46)
[2023-01-31] MEDS: methylPREDNISolone Sod Succ 40 MG/ML VIAL IVPUSH ×2 (08:00→19:46)
[2023-01-31] MEDS: 0.9 % Sodium Chloride Flush 3 ML SYRINGE IVFLUSH ×3 (08:00→19:46)
[2023-01-31] MEDS: methocarbamoL 750 MG TABLET PO ×3 (08:01→19:47)
[2023-01-31] MEDS: Insulin Glargine,Hum.rec.anlog 100 UNIT/ML 10 ML VIAL 25 UNIT SUBCUT ×2 (08:01→19:46)
[2023-01-31] MEDS: Sennosides 8.6 MG TABLET 17.2 MG PO (08:01)
[2023-01-31] MEDS: Cholecalciferol (Vitamin D3) 25 MCG TABLET 50 MCG PO (08:01)
[2023-01-31] MEDS: calcitrioL 0.25 MCG CAPSULE PO (08:01)
[2023-01-31] MEDS: Benzonatate 100 MG CAPSULE PO (08:01)
[2023-01-31] MEDS: Acetaminophen 325 MG TABLET 650 MG PO ×3 (08:01→20:50)
[2023-01-31] MEDS: Nicotine 7 MG PATCH.TD24 TRANSDERMA (08:02)
[2023-01-31] MEDS: Roflumilast 500 MCG TABLET PO (08:02)
[2023-01-31] MEDS: Loratadine 10 MG TABLET PO (08:02)
[2023-01-31] MEDS: Pregabalin 75 MG CAPSULE PO ×2 (08:02→19:47)
[2023-01-31] MEDS: carvediloL 6.25 MG TABLET PO ×2 (08:02→19:47)
[2023-01-31] MEDS: oxyCODONE HCl Immed Release 5 MG TABLET PO ×3 (08:02→20:49)
[2023-01-31] MEDS: Fluticasone/Umeclidinium/Vilanterol 100/62.5/25 BLST.W.DEV 1 PUFF INHALE (08:36)
--- NOTE | 2023-01-31 09:26 | HO.PM.IMPN ---
Subjective Subjective Date of Service: 01/31/23 Interval History: Seen and evaluated Feels mildly better but still very dyspneic with minimal exertion coughing no fever or chills Review of Systems Review of Systems: Yes all other systems are reviewed and are negative Physical Exam Vital Signs: Vital Signs: Last Vital Signs Temp 98.2 F 01/31/23 07:13 Pulse 86 01/31/23 08:40 Resp 16 01/31/23 08:40 BP 149/67 H 01/31/23 07:13 Pulse Ox 93 01/31/23 07:13 O2 Del Method Room Air 01/31/23 07:13 O2 Flow Rate 2 01/31/23 04:00 BMI result Body Mass Index 29.6 Const: Other: Constitutional : Awake, interactive, not in distress Neck : Normal inspection, Supple Cardiovascular : RRR, no JVP, no lower extremity edema Respiratory : decreased air entry bilaterally, expiratory wheezes with ronchi Gastrointestinal: soft, lax, Normal bowel sounds, Non tender Skin : Warm, Dry Neurological : Alert & oriented x3, No focal deficit Objective Data Active Medications Acetaminophen (Acetaminophen 325 Mg Tablet) 650 mg PO Q6H PRN PRN Reason: Pain, Mild (Pain Scale 1-3) Last Admin: 01/31/23 08:01 Dose: 650 mg Documented By: VINICIO Albuterol/Ipratropium (Albuterol/Iprat 2.5/0.5mg 3 Ml Ampul.Neb) 3 ml INHALE RQ4H WHILE AWAKE [facility] Last Admin: 01/31/23 08:39 Dose: 3 ml Documented By: ZACHERY Aspirin (Aspirin Enteric Coated 81 Mg Tablet.) 81 mg PO BEDTIME [facility] Last Admin: 01/30/23 20:17 Dose: 81 mg Documented By: DAMIÁNILEsthela Atorvastatin Calcium (Atorvastatin Calcium 80 Mg Tablet) 80 mg PO BEDTIME [facility]; Protocol Last Admin: 01/30/23 20:17 Dose: 80 mg Documented By: DAMIÁNILEsthela Benzonatate (Benzonatate 100 Mg Capsule) 100 mg PO TID PRN PRN Reason: Cough Last Admin: 01/31/23 08:01 Dose: 100 mg Documented By: VINICIO Calcitriol (Calcitriol 0.25 Mcg Capsule) 0.25 mcg PO DAILY [facility] Last Admin: 01/31/23 08:01 Dose: 0.25 mcg Documented By: RADHAEMA Carvedilol (Carvedilol 6.25 Mg Tablet) 6.25 mg PO BID [facility]; Protocol Last Admin: 01/31/23 08:02 Dose: 6.25 mg Documented By: VINICIO Docusate Sodium (Docusate Sodium 100 Mg Capsule) 100 mg PO BEDTIME [facility] Last Admin: 01/30/23 20:17 Dose: 100 mg Documented By: DAREN Enoxaparin Sodium (Enoxaparin Sodium 40 Mg/0.4 Ml Syringe) 40 mg SUBCUT Q24H [facility] Last Admin: 01/30/23 13:11 Dose: 40 mg Documented By: ZELDA Fluticasone Propionate (Fluticasone Propionate Nasal 16 Gm [place]) 2 spray NOSTRIL-B DAILY PRN PRN Reason: Congestion Fluticasone/Umeclidinium/Vilanterol (Fluticasone/Umeclidinium/Vilanterol 100/62.5/25 Blst.W.Dev) 1 puff INHALE RDAILY [facility] Last Admin: 01/31/23 08:36 Dose: 1 puff Documented By: ZACHERY Insulin Glargine (Insulin Glargine,Hum.Rec.Anlog 100 Unit/Ml 10 Ml Vial) 25 unit SUBCUT BID [facility] Last Admin: 01/31/23 08:01 Dose: 25 unit Documented By: VINICIO Insulin Human Lispro (Insulin Lispro 100 Unit/Ml 3 Ml Vial) 0 unit SUBCUT QIDACHS [facility]; Protocol Last Admin: 01/31/23 08:00 Dose: 6 unit Documented By: VINICIO Levothyroxine Sodium (Levothyroxine Sodium 112 Mcg Tablet) 112 mcg PO DAILY@0600 [facility] Last Admin: 01/31/23 05:42 Dose: 112 mcg Documented By: DAREN Loratadine (Loratadine 10 Mg Tablet) 10 mg PO DAILY [facility] Last Admin: 01/31/23 08:02 Dose: 10 mg Documented By: VINICIO Methocarbamol (Methocarbamol 750 Mg Tablet) 750 mg PO TID [facility] Last Admin: 01/31/23 08:01 Dose: 750 mg Documented By: RADHAEMA Methylprednisolone Sodium Succinate (Methylprednisolone Sod Succ 40 Mg/Ml Vial) 40 mg IVPUSH Q12H [facility] Last Admin: 01/31/23 08:00 Dose: 40 mg Documented By: VINICIO Montelukast Sodium (Montelukast Sodium 10 Mg Tablet) 10 mg PO BEDTIME [facility] Last Admin: 01/30/23 20:17 Dose: 10 mg Documented By: DAREN Nicotine (Nicotine 7 Mg Patch.Td24) 7 mg TRANSDERMA DAILY [facility] Last Admin: 01/31/23 08:02 Dose: 7 mg Documented By: VINICIO Non-Formulary Medication (Varenicline) 1 each PO BID [facility] Omeprazole (Omeprazole 20 Mg Capsule.Dr) 20 mg PO BID@0630,1630 [facility] Last Admin: 01/31/23 05:42 Dose: 20 mg Documented By: DAREN Ondansetron HCl (Ondansetron Hcl 4 Mg/2 Ml Vial) 4 mg IVPUSH Q8H PRN PRN Reason: Nausea and Vomiting Oxycodone HCl (Oxycodone Hcl Immed Release 5 Mg Tablet) 5 mg PO Q6H PRN PRN Reason: Pain, Severe (Pain Scale 7-10) Last Admin: 01/31/23 08:02 Dose: 5 mg Documented By: VINICIO Pregabalin (Pregabalin 75 Mg Capsule) 75 mg PO BID [facility] Last Admin: 01/31/23 08:02 Dose: 75 mg Documented By: COTKRIS Roflumilast (Roflumilast 500 Mcg Tablet) 500 mcg PO DAILY [facility] Last Admin: 01/31/23 08:02 Dose: 500 mcg Documented By: COTEMA Senna (Sennosides 8.6 Mg Tablet) 17.2 mg PO DAILY [facility] Last Admin: 01/31/23 08:01 Dose: 17.2 mg Documented By: RADHAEMA Sodium Chloride (0.9 % Sodium Chloride Flush 3 Ml Syringe) 3 ml IVFLUSH QSHIFT [facility] Last Admin: 01/31/23 08:00 Dose: 3 ml Documented By: VINICIO Vitamin D (Cholecalciferol (Vitamin D3) 25 Mcg Tablet) 50 mcg PO DAILY [facility] Last Admin: 01/31/23 08:01 Dose: 50 mcg Documented By: VINICIO Labs 01/31/23 04:57 01/31/23 04:57 Labs: Laboratory Results - last 24 hr 01/30/23 01/30/23 01/30/23 11:51 16:07 19:46 MCV MCH MCHC RDW Plt Count MPV Absolute Nucleated RBC Nucleated RBC % (auto) Anion Gap Estim Creat Clear Calc Estimated GFR POC Glucose 183 H 428 H* 370 H* Random Glucose Calcium 01/31/23 01/31/23 04:57 07:15 MCV 87.6 MCH 29.1 MCHC 33.2 RDW 13.6 Plt Count 234 MPV 10.9 Absolute Nucleated RBC 0.000 Nucleated RBC % (auto) 0.0 Anion Gap 17 Estim Creat Clear Calc 69.4 Estimated GFR > 60 POC Glucose 251 H Random Glucose 303 H Calcium 9.1 Assessment and Plan (1) COPD with acute exacerbation: Status: Acute Plan A 62 years old lady with PMH of COPD, DM, CAD , Hyperthyroid among others who presented with 3 days SOB and dyspnea. # COPD exacerbation Methylprednisone Nebulizers Doxycycline for anti-inflammatory effect Oxygen as needed Home inhalors consider Home O2 eval # Insulin-dependent diabetes mellitus with hyperglycemia continue home basal regimen.? sliding scale insulin. # CAD s/p stent Continue aspirin and high-intensity statin # HTN continue home p.o. antihypertensives # Chronic back pain continue po Oxycodone # Tobacco use disorder nicotine patch. Counseled against use DVT prophylaxis: Lovenox Quality Stroke Does the patient have a stroke diagnosis?: No VTE Prior VTE?: No VTE Risk Level:: Medical - moderate - high VTE Device Contraindication: Treatment Not Indicated VTE Drug Contraindication: N/A - Med Ordered
[2023-01-31] MEDS: Doxycycline Monohydrate 100 MG CAPSULE PO ×2 (10:17→19:50)
[2023-01-31] MEDS: guaiFENesin LA 600 MG TAB.ER.12H 1200 MG PO ×2 (10:17→19:47)
[2023-01-31] MEDS: Enoxaparin Sodium 40 MG/0.4 ML SYRINGE SUBCUT (10:17)
[2023-01-31 11:14] LABS: Glucose, Whole Blood 252 mg/dL (60-115)
--- NOTE | 2023-01-31 15:11 | MHC.CM.PN ---
Addendum entered by Suly Jaeger 01/31/23 15:12: STATUS CHANGED FROM OBSERVATION TO INPATIENT IMM DELIVERED Original Note: PT REPORTS SHE LIVES WITH HER AND IS INDEPENDENT WITH CARE SHE DENIES USE OF DME, OTHER THAN A SHOWER CHAIR, AND HAS NO SERVICES SHE HAS A HCP ON FILE PCP: MOHINI HARMON OBSERVATION NOTICE DELIVERED DCP: HOME NO SERVICES FAMILY TO TRANSPORT
[2023-01-31 15:36] LABS: Glucose, Whole Blood 286 mg/dL (60-115)
[2023-01-31 19:34] LABS: Glucose, Whole Blood 365 mg/dL (60-115)
[2023-01-31] MEDS: Aspirin Enteric Coated 81 MG TABLET.DR PO (19:47)
[2023-01-31] MEDS: Docusate Sodium 100 MG CAPSULE PO (19:47)
[2023-01-31] MEDS: Atorvastatin Calcium 80 MG TABLET PO (19:47)
[2023-01-31] MEDS: Montelukast Sodium 10 MG TABLET PO (19:48)
[2023-02-01 03:04] VITALS: BP 156/74; PULSE 77; RESP 16; TEMP 36; O2SAT 93
[2023-02-01] MEDS: oxyCODONE HCl Immed Release 5 MG TABLET PO ×2 (03:13→09:04)
[2023-02-01] MEDS: Omeprazole 20 MG CAPSULE.DR PO (05:33)
[2023-02-01] MEDS: Levothyroxine Sodium 112 MCG TABLET PO (05:33)
[2023-02-01 07:07] VITALS: BP 162/74; PULSE 78; RESP 18; TEMP 36.5; O2SAT 92
[2023-02-01 07:18] LABS: Glucose, Whole Blood 278 mg/dL (60-115)
[2023-02-01] MEDS: Albuterol/Iprat 2.5/0.5MG 3 ML AMPUL.NEB INHALE (08:05)
[2023-02-01 08:08] VITALS: PULSE 78; RESP 16; O2SAT 92
[2023-02-01] MEDS: Fluticasone/Umeclidinium/Vilanterol 100/62.5/25 BLST.W.DEV 1 PUFF INHALE (08:19)
[2023-02-01] MEDS: methylPREDNISolone Sod Succ 40 MG/ML VIAL IVPUSH (08:34)
[2023-02-01] MEDS: Insulin Glargine,Hum.rec.anlog 100 UNIT/ML 10 ML VIAL 30 UNIT SUBCUT (08:34)
[2023-02-01] MEDS: Insulin Lispro 100 UNIT/ML 3 ML VIAL SUBCUT (08:34)
[2023-02-01] MEDS: guaiFENesin LA 600 MG TAB.ER.12H 1200 MG PO (08:35)
[2023-02-01] MEDS: Benzonatate 100 MG CAPSULE PO (08:35)
[2023-02-01] MEDS: Loratadine 10 MG TABLET PO (08:35)
[2023-02-01] MEDS: Doxycycline Monohydrate 100 MG CAPSULE PO (08:35)
[2023-02-01] MEDS: Pregabalin 75 MG CAPSULE PO (08:35)
[2023-02-01] MEDS: calcitrioL 0.25 MCG CAPSULE PO (08:35)
[2023-02-01] MEDS: Sennosides 8.6 MG TABLET 17.2 MG PO (08:35)
[2023-02-01] MEDS: 0.9 % Sodium Chloride Flush 3 ML SYRINGE IVFLUSH (08:35)
[2023-02-01] MEDS: carvediloL 6.25 MG TABLET PO (08:35)
[2023-02-01] MEDS: Cholecalciferol (Vitamin D3) 25 MCG TABLET 50 MCG PO (08:35)
[2023-02-01] MEDS: Roflumilast 500 MCG TABLET PO (08:35)
[2023-02-01] MEDS: methocarbamoL 750 MG TABLET PO (08:35)
[2023-02-01] MEDS: Nicotine 7 MG PATCH.TD24 TRANSDERMA (08:35)
[2023-02-01] MEDS: Acetaminophen 325 MG TABLET 650 MG PO (09:04)
--- NOTE | 2023-02-01 10:32 | PM.DS ---
DS: Providers Provider Date of Service: 02/01/23 Date of admission: 01/31/23 14:59 Primary care physician: Bobby David MD DS: Diagnosis Discharge Diagnosis (1) COPD with acute exacerbation: Status: Acute (2) Tobacco abuse: Status: Acute DS: Summary Hospital Course Hospital Course: Admission note HPI A 62 years old lady with PMH of COPD, DM, CAD , Hyperthyroid among others who presented with 3 days SOB and dyspnea. The patient reportes cough, dyspnea, wheezing and being unable to lay flat. No chest pain, palpitations, nausea, vomiting, diarrhea or urinary symptoms. In Ed was found to have hypoxia to mid 80s on room air Admitted for further evaluation and treatment. Hospital course # COPD exacerbation Treated with Methylprednisone, Nebulizers , Doxycycline for anti-inflammatory effect. She did not require Oxygen supplement. restarted Home inhalors with good response as she was able to ambulate on room air with ease and no drop in her O2 level. Continue home nebulizers 4-5 times everyday for next few days Prednisone tapering dose Doxycycline for antiinflammatory effect Cough medications as needed Quit smoking Time Attestation Discharge coordination time: Greater than 30 minutes Quality: Safe Use of Opioids Does Pt have an Active Cancer Diagnosis on the Problem List?: No Quality: Stroke Does the patient have a stroke diagnosis?: No Physical Exam Vital Signs: Vital Signs: Last Vital Signs Temp 97.7 F 02/01/23 07:07 Pulse 78 02/01/23 08:08 Resp 16 02/01/23 08:08 BP 162/74 H 02/01/23 07:07 Pulse Ox 92 02/01/23 07:07 O2 Del Method Room Air 02/01/23 07:07 O2 Flow Rate 2 01/31/23 04:00 BMI result Body Mass Index 29.6 Const: Other: Constitutional : Awake, interactive, not in distress Neck : Normal inspection, Supple Cardiovascular : RRR, no JVP, no lower extremity edema Respiratory : improved air entry bilaterally, No expiratory wheezes Gastrointestinal: soft, lax, Normal bowel sounds, Non tender Skin : Warm, Dry Neurological : Alert & oriented x3, No focal deficit DS: Data Data Completed and Pending Labs on day of discharge: Laboratory Results - last 24 hr 01/31/23 01/31/23 02/01/23 15:24 19:29 07:15 POC Glucose 286 H 365 H* 278 H Preliminary micro results at discharge 01/30/23 08:24 Blood Culture - Preliminary Blood - Venous No growth after 48 hours. 01/30/23 08:53 Blood Culture - Preliminary Blood - Venous No growth after 24 hours. Imaging Chest x-ray: Radiologist's impression: ITS Impressions Chest X-Ray 01/30/23 05:10 IMPRESSION: No active cardiopulmonary disease. No significant change. Discharge Plan Discharge Anticipated Discharge Date/Time: 02/01/23 10:25 Patient Disposition: Home, Self-Care Discharge Diagnosis: COPD exacerbation Referrals: Name,MD Bobby [Primary Care Provider] - 1 Week Discharge Medications: New doxycycline monohydrate 100 mg Capsule 100 mg PO Q12H Qty: 6 0RF guaifenesin [Mucinex] 600 mg Tablet Extended Release 12hr 1,200 mg PO BID Qty: 30 0RF benzonatate 100 mg Capsule 100 mg PO TID PRN (Reason: Cough) Qty: 20 0RF prednisone 10 mg tablet See Taper PO DIRECTED Qty: 30 0RF Taper: Prednisone 40 mg daily for 3 Days and 0 Hour 30 mg daily for 3 Days and 0 Hour 20 mg daily for 3 Days and 0 Hour 10 mg daily for 3 Days and 0 Hour Rx Instructions: see taper instructions Continued roflumilast 500 mcg tablet 500 mcg PO DAILY Qty: 30 11RF pregabalin 75 mg capsule 75 mg PO BID 30 Days Qty: 60 3RF prednisone 5 mg tablet 5 mg PO DAILY 30 Days Qty: 30 3RF docusate sodium 100 mg capsule 1 cap PO BEDTIME insulin glargine [Lantus Solostar U-100 Insulin] 100 unit/mL (3 mL) Insulin Pen 30 unit SUBCUT BID Qty: 15 0RF Rx Instructions: PER PATIENT, MAY REQUIRE HIGHER DOSES WHEN ON STEROIDS insulin lispro [Humalog KwikPen Insulin] 100 unit/mL Insulin Pen 1 sliding scale dose SUBCUT TIDAC Protocol: Insulin Correction Scale Less than or equal to 110 ---- Give (units): 0 111 to 150 Give (units): 0 151 to 200 Give (units): 2 201 to 250 Give (units): 4 251 to 300 Give (units): 6 301 to 350 Give (units): 8 Greater than 350 Give (units): 10 Call MD if Blood Glucose > : 350 Rx Instructions: 6-10 before meals ipratropium-albuterol 0.5 mg-3 mg(2.5 mg base)/3 mL solution for nebulization 3 ml inhalation BID albuterol sulfate [Ventolin HFA] 90 mcg/actuation HFA aerosol inhaler 2 puff inhalation Q6H PRN (Reason: wheezing) calcitriol 0.25 mcg capsule 0.25 mcg PO DAILY levothyroxine 112 mcg tablet 112 mcg PO DAILY@0600 varenicline 0.5 mg (11)- 1 mg (42) tablets,dose pack 1 ea PO BID calcium citrate-vitamin D3 315 mg-6.25 mcg (250 unit) tablet 1 tab PO BID@1100,2100 ipratropium-albuterol 0.5 mg-3 mg(2.5 mg base)/3 mL solution for nebulization 3 ml inhalation QID PRN (Reason: Shortness Of Breath Or Wheezing) methocarbamol 750 mg tablet 750 mg PO Q8H sennosides [senna] 8.6 mg Tablet 17.2 mg PO DAILY Trelegy Ellipta 100-62.5-25 mcg blister with device 1 ea inhalation DAILY Combivent Respimat 20-100 mcg/actuation mist 2 puff inhalation BID Rx Instructions: space evenly during waking hours omeprazole 20 mg capsule,delayed release(DR/EC) 20 mg PO BID@0630,1630 aspirin 81 mg tablet,delayed release (DR/EC) 81 mg PO BEDTIME carvedilol 6.25 mg tablet 6.25 mg PO BID atorvastatin 80 mg tablet 80 mg PO BEDTIME Protocol: Hold for SBP< HOLD for SBP < : 90 montelukast 10 mg tablet 10 mg PO BEDTIME cetirizine 10 mg tablet 10 mg PO DAILY fluticasone propionate 50 mcg/actuation spray,suspension 2 spray intranasal DAILY PRN (Reason: Congestion) (DME) lancets [TRUEplus Lancets] 33 gauge misc See Rx Instructions .ROUTE TID Qty: 100 Rx Instructions: As directed (DME) FreeStyle Lite Strips Strip See Rx Instructions .ROUTE TID Qty: 10 Rx Instructions: As directed naloxone 4 mg/actuation spray,non-aerosol 1 spray intranasal ONCE PRN (Reason: Opioid Overdose) oxycodone-acetaminophen 7.5-325 mg tablet 1 tab PO Q6H Trulicity 1.5 mg/0.5 mL pen injector 1.5 mg subcut REESE@0900 pyridoxine (vitamin B6) 100 mg tablet 100 mg PO DAILY 90 Days Qty: 90 3RF cholecalciferol (vitamin D3) 50 mcg (2,000 unit) capsule 50 mcg PO DAILY 90 Days Qty: 90 11RF Discharge Orders: Discharge Order (Routine); Ordered 02/01/23 Ordered By: Louie Bailey Diet: Low salt diet Activity on Discharge: As tolerated Stand Alone Forms: Patient Portal Discharge page Care Plan Goals: Read below Health Concerns: Read below Plan of Treatment: Read below Assessment: Continue home nebulizers 4-5 times everyday for next few days Prednisone tapering dose Doxycycline for antiinflammatory effect Cough medications as needed Quit smoking
[2023-02-01 11:06] LABS: Glucose, Whole Blood 259 mg/dL (60-115)
== END 2023-02-01 11:36 | disposition home or self-care (01) | DRG 192 ==
LOC: HO.ED 09:31 → HO.EDOVER 11:26 → HO.S3 12:06
PROVIDERS: Physician Assistant; Admitting Provider Student in an Organized Health Care Education/Training Program; Emergency Provider Emergency Medicine Emergency Medical Services; PCP Internal Medicine Geriatric Medicine; Visit Provider Student in an Organized Health Care Education/Training Program
DX: J44.1 Chronic obstructive pulmonary disease with (acute) exacerbation (principal); F17.210 Nicotine dependence, cigarettes, uncomplicated; E11.65 Type 2 diabetes mellitus with hyperglycemia; E11.40 Type 2 diabetes mellitus with diabetic neuropathy, unspecified; I10 Essential (primary) hypertension; M54.9 Dorsalgia, unspecified; G89.29 Other chronic pain; I25.10 Atherosclerotic heart disease of native coronary artery without angina pectoris; Z20.822 Contact with and (suspected) exposure to COVID-19; Z95.5 Presence of coronary angioplasty implant and graft; Z71.6 Tobacco abuse counseling; Z79.4 Long term (current) use of insulin; Z79.52 Long term (current) use of systemic steroids; Z79.82 Long term (current) use of aspirin; Z79.899 Other long term (current) drug therapy
CPT/HCPCS: 0241U; 36415; 71046; 80048; 80076; 82947; 83605; 83880; 84484; 85025; 85027; 85379; 85610; 87040; 93005; 94640; 99285; J0696; J1650; J2920; J2930; J3475

== ENCOUNTER → 2023-01-30 11:19 | Outpatient (BNV) | payer OTHER, SELFPAY | PROVIDERS: Admitting Provider Student in an Organized Health Care Education/Training Program; Emergency Provider Emergency Medicine Emergency Medical Services; PCP Internal Medicine Geriatric Medicine; Visit Provider Student in an Organized Health Care Education/Training Program | DX: J44.1 Chronic obstructive pulmonary disease with (acute) exacerbation (principal); Z72.0 Tobacco use | CPT/HCPCS: 99222; 99232; 99239 ==

== ENCOUNTER 2023-02-06 09:24 | Outpatient (AMB) | payer OTHER, SELFPAY ==
--- NOTE | 2023-02-06 09:32 | MHC.OFFVIS ---
Intake Intake Visit Reasons: 6m/US(set) Intake Note: Patient is Present for Follow Up US Urology Medication: Vitamin b6 Antibiotic Allergies: Erythromycin, Blood Thinners: Aspirin Allergies HANK Inhibitors [HANK INHIBITORS] Allergy (Severe, Verified 02/08/23 19:56) ANGIO EDEMA enalapril Allergy (Severe, Verified 02/08/23 19:56) Anaphylaxis erythromycin base [ERYTHROMYCIN BASE] Allergy (Severe, Verified 02/08/23 19:56) HIVES ALL OVER hydromorphone [From DILAUDID] Adverse Reaction (Severe, Verified 02/08/23 19:56) TINGLING, PT DOES NOT LIKE THE FEELING MED GIVES HER Medication List - Last Reconciled 02/08/23 by GEETA Bal-VENUS albuterol sulfate 90 mcg/actuation (Ventolin HFA) 2 puffs inhalation Q6H PRN aspirin 81 mg PO BEDTIME atorvastatin 80 mg See Protocol PO BEDTIME benzonatate 100 mg PO TID PRN blood sugar diagnostic (FreeStyle Lite Strips) As directed calcitriol 0.25 mcg PO DAILY calcium citrate-vitamin D3 315 mg-6.25 mcg (250 unit) 1 tab PO BID@1100,2100 carvedilol 6.25 mg PO BID cetirizine 10 mg PO DAILY cholecalciferol (vitamin D3) 50 mcg PO DAILY 90 days docusate sodium 1 cap PO BEDTIME doxycycline monohydrate 100 mg PO Q12H dulaglutide (Trulicity) 1.5 mg subcut REESE@0900 fluticasone propionate 50 mcg/actuation 2 sprays intranasal DAILY PRN btktejbtfqn-oebzlxadw-ekyizkjp 100-62.5-25 mcg (Trelegy Ellipta) 1 ea inhalation DAILY guaifenesin ER (Mucinex) 1,200 mg (2 x 600 mg) PO BID insulin glargine (Lantus Solostar U-100 Insulin) 30 units (0.3 mL) subcut BID insulin lispro (Humalog KwikPen (U-100) Insulin) 1 sliding scale dose See Protocol subcut TIDAC ipratropium-albuterol 0.5 mg-3 mg(2.5 mg base)/3 mL 3 mL inhalation BID ipratropium-albuterol 0.5 mg-3 mg(2.5 mg base)/3 mL 3 mL inhalation QID PRN ipratropium-albuterol 20-100 mcg/actuation (Combivent Respimat) 2 puffs inhalation BID lancets (TRUEplus Lancets) As directed levothyroxine 112 mcg PO DAILY@0600 methocarbamol 750 mg PO Q8H montelukast 10 mg PO BEDTIME naloxone 4 mg/actuation 1 spray intranasal ONCE PRN omeprazole 20 mg PO BID@0630,1630 oxycodone-acetaminophen 7.5-325 mg 1 tab PO Q6H prednisone See Taper mg PO DIRECTED prednisone 5 mg PO DAILY 30 days pregabalin 75 mg PO BID 30 days pyridoxine (vitamin B6) 100 mg PO DAILY 90 days roflumilast 500 mcg PO DAILY sennosides (senna) 17.2 mg PO DAILY varenicline 1 ea PO BID HPI HPI Comments History of Present Illness Details Marita is a pleasant 62-year-old female patient of Dr. David. She has a past medical history of tubular adenoma, diabetes, obstructive sleep apnea, irritable bowel syndrome, hyperthyroidism, polycythemia, smoker, vitamin-D deficiency, goiter, pulmonary nodules, and pneumonia. She presents to the office today for a follow up of her nephrolithiasis. Recent renal imaging results reviewed with the patient today. Right kidney with mild pelvocaliectasis. Echogenic focus characteristic of clustered calcification lower pole right kidney measures 1.0 x 0.5 x 1.0 cm. Renal cortical thickness is normal. Limited visualization. Left kidney with mid pole 3 mm calculus. There is a 4 mm lower pole calculus. No hydronephrosis. When asked she reports to be doing and feeling well. She discusses her recent thyroidectomy an ongoing pulmonary issues she has been experiencing with her COPD. Discussed increased in stone burden since her last office visit here approximately 6 months ago. Discussed obtaining CT KUB for further assessment evaluation. Discussed risks versus benefits of surveillance monitoring versus further workup at length. Discussed at length importance of limiting/quitting smoking for overall health and well-being. She denies any bothersome urinary issues or concerns at this time. She denies urinary urgency, urinary frequency, incontinence, nocturia, hematuria, dysuria, foul smelling urine, changes to urinary stream, flank pain, fever, and or chills. She is happy with her current voiding parameters. Discussed at length importance of drinking adequate amount of fluid daily. Discussed adding 1 oz of lemon juice to water daily. In office urinalysis results reviewed with the patient today. She otherwise denies any issues or concerns at this time. [facility] Medical History Tubular adenoma Diabetes MCKAY (obstructive sleep apnea) Irritable bowel syndrome Hyperthyroidism Polycythemia Smoker Hypoxia COPD exacerbation Lesion of bronchus Tracheal anomaly Multinodular goiter Vitamin D deficiency Atelectasis Subclinical hyperthyroidism Goiter Pneumonia Pulmonary nodules COPD (chronic obstructive pulmonary disease) Surgical History History of esophagogastroduodenoscopy (EGD) Hx of colonoscopy History of back surgery History of ureterostomy S/P lumpectomy, right breast History of cholecystectomy History of tonsillectomy Family History Father No problems noted. Mother No problems noted. Paternal Aunt Diabetes Social History Household Members: Spouse Housing: House Do you presently have visiting nurse or other home services: No Alcohol intake: never Patient Tobacco Use Status: Current everyday Tobacco user Tobacco use type: Cigarette Cigarette Packs Per Day: 0.5 Cigarettes Per Day: 6 e-Cigarette/Vaping Use: Never Used Second Hand Smoke Exposure: Yes Substance Use Type: Marijuana Advance Directives Date on File: 01/24/21 service: No Current occupational status: disabled Review of Systems Const Reports as per HPI Eyes Reports no additional complaints ENT Reports no additional complaints Card Reports as per HPI Resp Reports as per HPI GI Reports as per HPI Reports as per HPI Musc Reports no additional complaints Neuro Reports no additional complaints Psych Reports no additional complaints Endo Reports as per HPI Physical Exam Const General: cooperative, comfortable, no acute distress, well developed, alert and awake Orientation/consciousness: patient oriented x3 Limitations: no limitations HEENT Head: Yes normal to inspection, Yes normocephalic and Yes atraumatic Ears: hearing grossly normal bilaterally Eyes General: appearance normal, both eyes and all related structures Neck Neck: Yes normal visual inspection and Yes trachea midline Chest Chest palpation & inspection: normal inspection of the chest Resp Effort & Inspection: normal respiratory effort and able to speak in complete sentences Cardio Rate: regular rate GI Inspection: Yes normal to inspection General: Yes no CVA tenderness Back/Spine/Pelvis Back: no CVA tenderness Neuro General: patient oriented x3 Extrem General: Yes normal to inspection Psych Appearance: grossly normal Mental Status: mental status grossly normal Speech and movement: Normal speech and movement present and Clear speech present Affect: normal affect Attitude: cooperative Thought process: Normal thought process present Thought content: Normal thought content present Insight: Fair insight present (Psych) Judgement: Fair judgement present (Psych) Results AMB Urinalysis, Automated UA Leukoctes 0 Augustus/uL Last Edit by Tamia Olsen [facility] on 02/06/23 09:41 UA Nitrite Negative Last Edit by Tamia Olsen [facility] on 02/06/23 09:41 UA Urobilinogen 0.2 mg/dL Last Edit by Tamia Olsen [facility] on 02/06/23 09:41 UA Protein 15 mg/dL Last Edit by Tamia Olsen [facility] on 02/06/23 09:41 UA pH 6.0 Last Edit by Tamia Olsen [facility] on 02/06/23 09:41 UA Blood 0 Celso/uL Last Edit by Tamia Olsen [facility] on 02/06/23 09:41 UA Specific Forest 1.030 Last Edit by Tamia Olsen [facility] on 02/06/23 09:41 UA Ketone Negative Last Edit by Tamia Olsen [facility] on 02/06/23 09:41 UA Bilirubin 0 mg/dL Last Edit by Tamia Olsen [facility] on 02/06/23 09:41 UA Glucose 0 mg/dL Last Edit by Tamia Olsen [facility] on 02/06/23 09:41 Results Reviewed Results Reviewed: Laboratory Last Values Urine pH (Auto) 6.0 02/06/23 09:35 Specific Forest (Auto) 1.030 02/06/23 09:35 Urine Protein (Auto) 15 mg/dL 02/06/23 09:35 Glucose (UA)(Auto) 0 mg/dL 02/06/23 09:35 Urine Ketones (Auto) Negative 02/06/23 09:35 Urine Blood (Auto) 0 Celso/uL 02/06/23 09:35 Urine Nitrite (Auto) Negative 02/06/23 09:35 Urine Bilirubin (Auto) 0 mg/dL 02/06/23 09:35 Urine Urobilinogen (Auto) 0.2 mg/dL 02/06/23 09:35 Leukocyte Esterase (Auto) 0 Augustus/uL 02/06/23 09:35 Date of Service: 01/23/23 EXAMINATION: US RETROPERITONEAL LIMITED (RENAL ONLY) FINDINGS: RIGHT KIDNEY: 10.8 x 4.2 x 4.6 cm (SAG x AP x TRV). Mild right pelvocaliectasis. Echogenic focus characteristic of clustered calcification lower pole right kidney measures 1.0 x 0.5 x 1.0 cm. Renal cortical thickness is normal. Limited visualization. LEFT KIDNEY: 10.8 x 4.8 x 6.3 cm (SAG x AP x TRV). Midpole 0.3 cm calculus. There is a 0.4 cm lower pole calculus. No hydronephrosis. Renal cortical thickness is normal. Limited visualization. IMPRESSION: 1. Mild right pelvocaliectasis with nephrolithiasis. 2. No left hydronephrosis. Lower pole left renal calculi. Assessment & Plan Assessment & Plan (1) Bilateral nephrolithiasis: Code(s): N20.0 - Calculus of kidney Plan In office urinalysis results reviewed with the patient today; as noted above. Discussed at length obtaining CT KUB for further assessment evaluation given increase in stone burden since last office visit approximately 6 months ago. Patient denies any bothersome urinary issues or concerns at this time. Patient reports to be happy with current voiding parameters. Discussed, educated, and stressed the importance of drinking plenty of water daily. Discussed adding 1 oz of lemon juice to water daily. Continue vitamin B6 as discussed and prescribed. Discussed and stressed the importance of limiting/quitting smoking for overall health and well-being. Follow-up in 1 month with imaging to be completed prior; or sooner with any issues, concerns, and or questions. Orders: Orders CT kidney stone 02/06/23 N20.0 - Calculus of kidney AMB Urinalysis Automated 02/06/23 Z13.9 - Encounter for screening, unspecified Patient Instructions: The patient had an opportunity to ask questions regarding the treatment plan. All questions were answered. Physical exam, labs, and imaging were discussed and reviewed in detail. As well as risks, benefits, and discussion of treatment choices. No major barriers to understanding were identified. The patient expressed understanding and agreement with the above treatment plan. The patient was made aware they should contact our office by phone for worsening of their current condition, the appearance of new symptoms, or with any questions or concerns. Compliance is encouraged with any medications and follow up testing that is ordered. It is a privilege to be allowed the opportunity to participate in? your urological care.? Again, if you have any questions or concerns If you have any questions or concerns please do not hesitate to contact me. The office is [phone]. This note is constructed using voice recognition software. While every effort has been made to ensure accuracy dermatology physician errors may have been included. Yours sincerely, GEETA Bal- Quality Reporting (2019) Adult ([facility] 138/05/21/68) Smoking risk assessment performed?: Yes Patient Tobacco Use Status: Current everyday Tobacco user Coding Level of Care Code Est Pt Level 3 (29840) Diagnoses Bilateral nephrolithiasis N20.0
== END 2023-02-06 10:18 | disposition home or self-care (01) ==
PROVIDERS: Visit Provider Nurse Practitioner Family
DX: N20.0 Calculus of kidney (principal)
CPT/HCPCS: 99213

== ENCOUNTER → 2023-02-06 09:24 | Outpatient (BNVA) | payer OTHER, SELFPAY | PROVIDERS: Visit Provider Nurse Practitioner Family | DX: N20.0 Calculus of kidney (principal) | CPT/HCPCS: 81003; 99212 ==

== ENCOUNTER 2023-02-24 14:22 | Outpatient (REF) | payer OTHER, SELFPAY ==
[2023-02-24 14:33] LABS: MANUAL DIFF FLAG NO
[2023-02-24 14:47] LABS: Basophils Absolute Auto 0.1 X10*3/uL (0.0-0.2); Basophils Percent Auto 0.7 % (0-2); Eosinophils Absolute Auto 0.3 X10*3/uL (0.0-0.4); Eosinophils Percent Auto 2.2 % (0-4); Imm Gran Abs Auto 0.09 X10*3/uL (0.00-0.03); Imm Gran Pct Auto 0.7 % (0.0-0.4); Lymphocytes Absolute Auto 4.4 X10*3/uL (1.2-4.9); Lymphocytes Percent Auto 36.4 % (20-40); Mean Corpuscular HGB Conc 33.3 g/dl (31.0-35.0); Mean Corpuscular Hemoglobin 29.7 pg (27.0-33.0); Mean Corpuscular Volume 89.1 fL (80.0-98.0); Mean Platelet Volume 10.2 fL (9.4-12.3); Monocytes Absolute Auto 0.9 X10*3/uL (0.1-1.2); Monocytes Percent Auto 7.1 % (2-11); Neutrophils Absolute Auto 6.4 x10*3/uL (2.0-8.3); Neutrophils Percent Auto 52.9 % (45-73); Platelet Count 218 X10*3/uL (160-400); Red Blood Count 5.05 X10*6/uL (4.20-5.50); Red Cell Distribution Width 14.2 % (11.0-16.0)
== END 2023-02-24 14:23 | disposition home or self-care (01) ==
LOC: HO.LAB 14:22
PROVIDERS: PCP Internal Medicine Geriatric Medicine; Visit Provider Internal Medicine Geriatric Medicine
DX: J44.1 Chronic obstructive pulmonary disease with (acute) exacerbation (principal); D72.829 Elevated white blood cell count, unspecified
CPT/HCPCS: 36415; 85025

== ENCOUNTER 2023-02-25 14:06 | Outpatient (AMB) | payer MEDICARE, MEDICAID, SELFPAY ==
--- NOTE | 2023-02-25 14:08 | A.OFFVIS_ITS ---
Intake Vital Signs 02/25/23 14:13 Height 5 ft 5 in Weight 171 lb 15.369 oz BMI 28.6 BP 134/68 Blood Pressure Location Lt brachial Position Sitting Pulse 69 Pulse Source Pulse Oximeter Intake Visit Reasons: F/U Hyperthyroidism-CONFIRMED Intake Note: New patient to Dr. Goldberg present today for Hyperthyroidism. Previously followed by Dr. Long. Graphic Design Manager Required: No Accompanied by: Self / Same As Patient Allergies HANK Inhibitors [HANK INHIBITORS] Allergy (Severe, Verified 02/25/23 14:15) ANGIO EDEMA enalapril Allergy (Severe, Verified 02/25/23 14:15) Anaphylaxis erythromycin base [ERYTHROMYCIN BASE] Allergy (Severe, Verified 02/25/23 14:15) HIVES ALL OVER hydromorphone [From DILAUDID] Adverse Reaction (Severe, Verified 02/25/23 14:15) TINGLING, PT DOES NOT LIKE THE FEELING MED GIVES HER Medication List - Last Reconciled 02/25/23 by Brooks Goldberg MD albuterol sulfate 90 mcg/actuation (Ventolin HFA) 2 puffs inhalation Q6H PRN aspirin 81 mg PO BEDTIME atorvastatin 80 mg See Protocol PO BEDTIME blood sugar diagnostic (FreeStyle Lite Strips) As directed calcium citrate-vitamin D3 315 mg-6.25 mcg (250 unit) 1 tab PO BID@1100,2100 carvedilol 6.25 mg PO BID cetirizine 10 mg PO DAILY cholecalciferol (vitamin D3) 50 mcg PO DAILY 90 days docusate sodium 1 cap PO BEDTIME dulaglutide (Trulicity) 1.5 mg subcut REESE@0900 fluticasone propionate 50 mcg/actuation 2 sprays intranasal DAILY PRN rgtteervkof-kuknyarnv-imnmbjhr 100-62.5-25 mcg (Trelegy Ellipta) 1 ea inhalation DAILY insulin glargine (Lantus Solostar U-100 Insulin) 30 units (0.3 mL) subcut BID insulin lispro (Humalog KwikPen (U-100) Insulin) 1 sliding scale dose See Protocol subcut TIDAC ipratropium-albuterol 0.5 mg-3 mg(2.5 mg base)/3 mL 3 mL inhalation QID PRN ipratropium-albuterol 20-100 mcg/actuation (Combivent Respimat) 2 puffs inhalation BID lancets (TRUEplus Lancets) As directed levothyroxine 112 mcg PO DAILY@0600 methocarbamol 750 mg PO Q8H montelukast 10 mg PO BEDTIME naloxone 4 mg/actuation 1 spray intranasal ONCE PRN omeprazole 20 mg PO BID@0630,1630 oxycodone-acetaminophen 7.5-325 mg 1 tab PO Q6H prednisone 5 mg PO DAILY pregabalin 75 mg PO BID 30 days pyridoxine (vitamin B6) 100 mg PO DAILY 90 days roflumilast 500 mcg PO DAILY sennosides (senna) 17.2 mg PO DAILY varenicline 1 ea PO BID HPI HPI Comments History of Present Illness Details 62 YO Female with a PMHx of a toxic MNG who is seen in F/U for the same. She was previously followed by Dr. Carmen. Patient last saw Dr. Long on 06/23/[address] Carmen's records she had a prior thyroid uptake and scan which revealed uptake WNL, but with a heterogenous pattern consistent with toxic nodules. She had subclinical hyperthyroidism and was started on Methimazole 5 mg PO daily. She was however on Prednisone at that time. She was able to be weaned off the prednisone and the methimazole was stopped. Her TFTs initially normalized, but then she became hyperthyroid again. Labs at that time revealed all antibodies to be negative. Thyroid uptake and scan completed 12/27/2021 revealed 24 hour uptake of 38.9%. The gland was diffusely enlarged with multiple areas of decreased uptake in the bilateral lower poles and increased uptake within the bilateral upper poles. Trapping was moderately increased diffusely. This was thought to represent a toxic MNG. US did confirm a multinodular thyroid. She was scheduled for FNA biopsy of the cold appearing areas, but this was rescheduled on mulitple occasions and she still has yet to complete this. She has COPD and remains on Prednisone daily. She overall has no complaints today. Thyroid US: 12/27/2020 Right Thyroid Lobe: 5.6 x 3.1 x 3.6 cm, volume 32.7 mL. Previously 5.2 x 2.4 x 3.4 cm, volume 23.0 mL. Parenchyma: The gland echotexture is heterogeneous. Thyroid vascularity is normal. Left Thyroid Lobe: 6.5 x 3.0 x 3.4 cm, volume 34.7 mL. Previously 5.7 x 1.9 x 2.8 cm, volume 15.9 mL. Parenchyma: The gland echotexture is heterogeneous. Thyroid vascularity is normal. Isthmus: 0.6 cm in maximum AP dimension. Previously 0.5 cm. Estimated total number of nodules greater than or equal to 1 cm: 1. Tick Eradicator nodules are described as follows: 1.? Location: Left mid. ?? ? Size: 0.8 x 0.6 x 0.5 cm, volume 0.12 mL. ?? ? Previously: 0.7 x 0.6 x 0.8 cm, volume 0.18 mL. ?? ? Nodule characteristics: ?? ? Composition: Solid/almost completely solid (2). ?? ? Echogenicity: Hypoechoic (2). ?? ? Shape: Not taller than wide (0). ?? ? Margins: Smooth (0). ?? ? Echogenic Foci: None (0). ? ACR TI-RADS total points: 4 ?? ? ACR TI-RADS category: 4 ? Significant change in size (>/= 20% in 2 dimensions and minimal increase of 2 mm or 50% or greater increase in volume): ?? ? Change in features: ?? ? Change in ACR TI-RADS risk category: 2.? Location: Left superior. ?? ? Size: 0.6 x 0.7 x 0.3 cm, volume 0.07 mL. ?? ? Previously: 0.6 x 0.4 x 0.6 cm, volume 0.08 mL. ?? ? Nodule characteristics: ?? ? Composition: Solid (2). ?? ? Echogenicity: Hypoechoic (2). ?? ? Shape: Not taller than wide (0). ?? ? Margins: Smooth (0). ?? ? Echogenic Foci: None (0). ? ACR TI-RADS total points: 4 ?? ? ACR TI-RADS category: 4 ?? ? Significant change in size (>/= 20% in 2 dimensions and minimal increase of 2 mm or 50% or greater increase in volume): ?? ? Change in features: ?? ? Change in ACR TI-RADS risk category: 3.? Location: Right inferior. ?? ? Size: 1.8 x 1.8 x 1.7 cm, volume 2.88 mL. ?? ? Previously: Not seen on the prior study. Appreciable nodule versus area of gland heterogeneity. ?? ? Nodule characteristics: ?? ? Composition: Solid (2). ?? ? Echogenicity: Hypoechoic (2). ?? ? Shape: Not taller than wide (0). ?? ? Margins: Smooth (0). ?? ? Echogenic Foci: None (0). ? ACR TI-RADS total points: 4 ?? ? ACR TI-RADS category: 4 ?? ? Significant change in size (>/= 20% in 2 dimensions and minimal increase of 2 mm or 50% or greater increase in volume): ?? ? Change in features: ?? ? Change in ACR TI-RADS risk category: 4.? Location: Right mid. ?? ? Size: 0.6 x 0.4 x 0.3 cm, volume 0.04 mL. ?? ? Previously: 0.6 x 0.5 x 0.6 cm, volume 0.09 mL. ?? ? Nodule characteristics: ?? ? Composition: Solid (2). ?? ? Echogenicity: Hypoechoic (2). ?? ? Shape: Not taller than wide (0). ?? ? Margins: Smooth (0). ?? ? Echogenic Foci: None (0). ? ACR TI-RADS total points: 4 ?? ? ACR TI-RADS category: 4 ?? ? Significant change in size (>/= 20% in 2 dimensions and minimal increase of 2 mm or 50% or greater increase in volume): ?? ? Change in features: ?? ? Change in ACR TI-RADS risk category: NODES: No lymphadenopathy is seen in the tissue surrounding the thyroid gland. Thyroid Uptake and Scan: 12/27/2021 FINDINGS: The uptake is 16.2% at 4 hours and 38.9% at 24 hours (Normal radioiodine uptake at 24 hours is 10% to 30%). The radioiodine uptake is mildly elevated. The radiopertechnetate thyroid scintigram demonstrates the thyroid gland to be moderately enlarged, proximal 3-4 times normal in size. There is some heterogeneity within the gland with a suggestion of ovoid shaped foci of decreased activity in both lower poles and a small subcentimeter focus of relatively increased activity in the upper pole of the right lobe. The overall trapping function is moderately increased diffusely. A single anterior radioiodine image obtained at the time of the 24-hour uptake is similar to the radio pertechnetate image except the small subcentimeter focus of relatively increased activity in the upper pole of the right lobe is not present. Labs: Laboratory Tests 06/18/22 06/18/22 10:28 10:28 25-OH Vitamin D To jluis 32.7 TSH 0.19 L Free T4 1.44 Total T3 143 Status post total thyroidectomy on 12/31/2022 with benign pathology. Patient is currently on levothyroxine 112 mcg [facility] Medical History (Updated 02/25/23 @ 14:31 by Brooks Goldberg MD) Hypothyroidism, postsurgical Tubular adenoma Diabetes MCKAY (obstructive sleep apnea) Irritable bowel syndrome Hyperthyroidism Polycythemia Smoker Hypoxia COPD exacerbation Lesion of bronchus Tracheal anomaly Multinodular goiter Vitamin D deficiency Atelectasis Subclinical hyperthyroidism Goiter Pneumonia Pulmonary nodules COPD (chronic obstructive pulmonary disease) Surgical History (Updated 02/25/23 @ 14:21 by April Padron) History of thyroid surgery History of esophagogastroduodenoscopy (EGD) Hx of colonoscopy History of back surgery History of ureterostomy S/P lumpectomy, right breast History of cholecystectomy History of tonsillectomy Family History Father No problems noted. Mother No problems noted. Paternal Aunt Diabetes Social History Household Members: Spouse Housing: House Do you presently have visiting nurse or other home services: No Alcohol intake: never Comment: pt refused bed alarm/camera Patient Tobacco Use Status: Current everyday Tobacco user Tobacco use type: Cigarette Cigarette Packs Per Day: 0.5 Cigarettes Per Day: 6 e-Cigarette/Vaping Use: Never Used Second Hand Smoke Exposure: Yes Substance Use Type: Marijuana Advance Directives Date on File: 01/24/21 service: No Current occupational status: disabled Physical Exam Vital Signs: Last Vital Signs Pulse 69 02/25/23 14:13 BP 134/68 02/25/23 14:13 BMI result Body Mass Index 28.6 Const Other: Healed scar status post thyroidectomy Assessment & Plan Assessment & Plan (1) Hypothyroidism, postsurgical: Code(s): E89.0 - Postprocedural hypothyroidism Plan: This 62-year-old white female with a history of multinodular goiter toxic status post total thyroidectomy with benign pathology. She is currently be replaced with 112 mcg levothyroxine. She appears to be clinically euthyroid. Plan is check a TSH and free T4 adjust levothyroxine accordingly Orders: Orders Free T4 (Free Thyroxine) Today E89.0 - Postprocedural hypothyroidism Thyroid Stimulating Hormone Today E89.0 - Postprocedural hypothyroidism Calcium Today E89.0 - Postprocedural hypothyroidism Albumin Level Today E89.0 - Postprocedural hypothyroidism Quality Reporting (2019) Adult ([facility] 138/05/21/68) Smoking risk assessment performed?: Yes Patient Tobacco Use Status: Current everyday Tobacco user Coding Level of Care Code Est Pt Level 3 (07409) Diagnoses Hypothyroidism, postsurgical E89.0
[2023-02-25 14:13] VITALS: BP 134/68; PULSE 69; BMI 28.6
== END 2023-02-25 15:02 | disposition home or self-care (01) ==
PROVIDERS: PCP Internal Medicine Geriatric Medicine; Visit Provider Internal Medicine Endocrinology, Diabetes & Metabolism
DX: E89.0 Postprocedural hypothyroidism (principal)
CPT/HCPCS: 99213

== ENCOUNTER → 2023-02-25 14:06 | Outpatient (BNVA) | payer OTHER, SELFPAY | PROVIDERS: PCP Internal Medicine Geriatric Medicine; Visit Provider Internal Medicine Endocrinology, Diabetes & Metabolism | DX: E89.0 Postprocedural hypothyroidism (principal) | CPT/HCPCS: 36415; 82040; 82310; 83970; 84439; 84443; 85025; 99212 ==

== ENCOUNTER 2023-02-25 15:19 | Outpatient (REF) | payer MEDICARE, MEDICAID, SELFPAY ==
[2023-02-25 16:12] LABS: MANUAL DIFF FLAG NO
[2023-02-25 16:24] LABS: Basophils Absolute Auto 0.1 X10*3/uL (0.0-0.2); Basophils Percent Auto 0.9 % (0-2); Eosinophils Absolute Auto 0.3 X10*3/uL (0.0-0.4); Eosinophils Percent Auto 2.1 % (0-4); Hematocrit 46.6 % (37.0-47.0); Hemoglobin 15.2 g/dl (12.0-16.0); Imm Gran Abs Auto 0.07 X10*3/uL (0.00-0.03); Imm Gran Pct Auto 0.6 % (0.0-0.4); Lymphocytes Absolute Auto 3.4 X10*3/uL (1.2-4.9); Mean Corpuscular HGB Conc 32.6 g/dl (31.0-35.0); Mean Corpuscular Volume 88.8 fL (80.0-98.0); Mean Platelet Volume 10.8 fL (9.4-12.3); Monocytes Absolute Auto 0.7 X10*3/uL (0.1-1.2); Monocytes Percent Auto 6.1 % (2-11); Neutrophils Absolute Auto 7.2 x10*3/uL (2.0-8.3); Neutrophils Percent Auto 61.3 % (45-73); Platelet Count 239 X10*3/uL (160-400); Red Blood Count 5.25 X10*6/uL (4.20-5.50); Red Cell Distribution Width 14.2 % (11.0-16.0); White Blood Count 11.7 X10*3/uL (4.8-10.8)
[2023-02-25 16:46] LABS: PTH Intact Intraoperative 31.5 pg/mL (8.7-77.1)
[2023-02-25 16:48] LABS: Albumin Level 3.8 g/dL (3.5-5.0); Calcium 9.4 mg/dL (8.4-10.2)
[2023-02-25 17:10] LABS: Free T4 (Free Thyroxine) 1.21 ng/dL (0.71-1.85); Thyroid Stimulating Hormone 1.96 uIU/mL (0.32-4.0)
== END 2023-02-25 15:20 | disposition home or self-care (01) ==
LOC: HO.HHCL 15:19
PROVIDERS: Internal Medicine Geriatric Medicine; Surgery; Visit Provider Internal Medicine Endocrinology, Diabetes & Metabolism
DX: Z13.89 Encounter for screening for other disorder (principal)
CPT/HCPCS: 36415; 82040; 82310; 83970; 84439; 84443; 85025

== ENCOUNTER 2023-02-26 08:55 | Outpatient (AMB) | payer OTHER, SELFPAY ==
--- NOTE | 2023-02-26 08:57 | A.OFFVIS_ITS ---
Intake Vital Signs 02/26/23 09:00 02/26/23 09:38 02/26/23 09:57 Height 5 ft 5 in Weight 169 lb 6 oz BMI 28.2 BP 149/67 H 130/58 L 135/61 Blood Pressure Location Lt brachial Lt brachial Lt brachial Position Sitting Sitting Sitting Pulse 86 78 79 Pulse Source Pulse Oximeter Pulse Oximeter Pulse Oximeter Pulse Oximetry (%) 96 96 97 Oxygen Delivery Method Room Air Room Air Room Air Comment 15 mins after qutenza application 30 mins after qutenza application Intake Visit Reasons: Qutenza application/confirmed Intake Note: Pain today 09/06. Family Dinner Service Specialist Required: No Accompanied by: Self / Same As Patient Allergies HANK Inhibitors [HANK INHIBITORS] Allergy (Severe, Verified 02/26/23 09:05) ANGIO EDEMA enalapril Allergy (Severe, Verified 02/26/23 09:05) Anaphylaxis erythromycin base [ERYTHROMYCIN BASE] Allergy (Severe, Verified 02/26/23 09:05) HIVES ALL OVER hydromorphone [From DILAUDID] Adverse Reaction (Severe, Verified 02/26/23 09:05) TINGLING, PT DOES NOT LIKE THE FEELING MED GIVES HER HPI HPI Comments History of Present Illness Details Patient presents for application of capsaicin 8% topical patch for diabetic neuropathy in bilateral feet. Patient reports recent ER visit for shortness of breaths and COPD exacerbation and was placed on prednisone taper again which increased her blood sugars. She continues to report low back pain that radiates into her left lower extremity laterally and anteriorly with stabbing and shooting pain. Patient also reports burning, numbness and tingling in both feet, worse at night time. Denies cough, cold, infection, fever, bladder or bowel dysfunction or saddle anesthesia. PRIOR: Patient presents today for medication review. Patient reports methocarbamol 750 mg Q8H prn has been well tolerated and effective for her. We tried prescribing BID prn for past few month, patient reports she has noticied significant discomfort with decreased dose. She is suffering from chronic back pain with left sided radiculopathy, lumbar post laminectomy syndrome, sacroiliac joint pain, painful diabetic neuropathy, muscle spasms and stiffness, kidney stones and more recently dealing with hyperthyroidism and multinodular goiter. She reports A1C>9.2 therefore is not candidate for therapeutic injections. Patient reports gabapentin has not been effective. She is also prescribed Percocet by her PCP which along with methocarbamol allows her to be less symptomatic and more functional. Denies any fever, bladder or bowel incontinence or saddle anesthesia. PRIOR: Patient presents today for follow up and medication discussion. Patient was initially seen on 10/07/21 without other follow ups. Patient reports she initiated physical therapy in summer 2021 but had to stop due to worsening pain and COVID illness. She was hospitalized twice last year in October and January 2022 for acute hypoxemic respiratory failure secondary to COVID and COPD exacerbation and was treated with nebs steroids, supplement oxygen with continued symptoms of post COVID sequelae. She continues to smoke and has been working on decreasing amount of daily cigarettes. Patient reports chronic low back pain with muscle stiffness and spasms that radiates into her left lower extremity laterally to the dorsum of left foot and toes with numbness and tingling. Reports worsening of pain with lumbar flexion as well as prolonged walking forward bending, changing positions and cold and rainy weather changes. Her axial back pain has been minimal. She is insulin dependent diabetic with noted elevation of blood sugars during January and February due to inhaled and oral steroid intake for COPD and COVID illness few month ago. Patient reports next follow up with her PCP in 2 weeks with recheck of A1C. If her AIC 8.5, we will consider Left L4-L5 TFESI. She has been taking gabapentin 300 mg tid prn and oxycodone prn for severe pain with partial relief. This is prescribed by her PCP. Methocarbamol has been effective for muscle spasms without noted side effects. Lumbar spine MRI in 2019 were reviewed with patient today and is noted below. Patient denies any fever, chest pain, shortness of breaths, abdominal or groin pain, bladder or bowel incontinence or saddle anesthesia. PRIOR 10/07/21: Patient is a pleasant 60 year old female with back surgery a year ago by Dr. Whelan presents today with lower back pain that radiates into her left lower extremity laterally with numbness and tingling in her left foot. She reports amber winston has improved after back surgery but muscle spasms have been ?terrifying and not controllable.? Patient states her back pain also travels upwards toward mid back and in between shoulder blades. Pain is described as constant aching, pins and needles, throbbing, burning, and spasming sensations which worsen during the evenings and middle of the night with highest pain intensity at 9/10. Patient reports her pain is increased with walking over 20 minutes, prolonged sitting or standing. She cannot get comfortable during the night and has been sleeping poorly. She has been trying to control her pain with tizanidine and Percocet 7.5-325 mg QID prn with continued symptoms. Patient has received lumbar injection x1 prior to back surgery with only one week of pain relief. She completed physical therapy with a TENS unit and weighted ice packs with mild to moderate improvements. No MRIs or lumbar x rays were done after back surgery per patient. She is interested in neuromodulation treatment modalities but would like to restart physical therapy and obtain her personal TENS unit. Patient denies any fever, chills, malaise, abdominal or groin pain, weakness, bowel/bladder incontinence or saddle anesthesia. She ambulates with normal gait without assisting devices. [facility] Medical History Hypothyroidism, postsurgical Tubular adenoma Diabetes MCKAY (obstructive sleep apnea) Irritable bowel syndrome Hyperthyroidism Polycythemia Smoker Hypoxia COPD exacerbation Lesion of bronchus Tracheal anomaly Multinodular goiter Vitamin D deficiency Atelectasis Subclinical hyperthyroidism Goiter Pneumonia Pulmonary nodules COPD (chronic obstructive pulmonary disease) Surgical History History of thyroid surgery History of esophagogastroduodenoscopy (EGD) Hx of colonoscopy History of back surgery History of ureterostomy S/P lumpectomy, right breast History of cholecystectomy History of tonsillectomy Family History Father No problems noted. Mother No problems noted. Paternal Aunt Diabetes Social History Household Members: Spouse Housing: House Do you presently have visiting nurse or other home services: No Alcohol intake: never Comment: pt refused bed alarm/camera Patient Tobacco Use Status: Current everyday Tobacco user Tobacco use type: Cigarette Cigarette Packs Per Day: 0.5 Cigarettes Per Day: 6 e-Cigarette/Vaping Use: Never Used Second Hand Smoke Exposure: Yes Substance Use Type: Marijuana Advance Directives Date on File: 01/24/21 service: No Current occupational status: disabled Review of Systems Const All systems reviewed & are unremarkable except as noted in HPI and below Physical Exam Vital Signs: Last Vital Signs Pulse 78 02/26/23 09:38 BP 130/58 L 02/26/23 09:38 Pulse Ox 96 02/26/23 09:38 Oxygen Delivery Method Room Air 02/26/23 09:38 BMI result Body Mass Index 28.2 General: Appears afebrile. Alert and oriented. Mood and affect appropriate. Follows and participates in conversation appropriately. Respiratory effort is unlabored. No cough. Able to transition from sit to stand unassisted. Ambulates with bilaterally normal heel strike and toe off. Back/Spine/Pelvis Cervical Spine: cervical ROM normal and No Cervical spine tenderness Thoracic/Lumbar Spine: thoracic and lumbar spine normal to inspection, Lasegue's sign negative, straight leg raise negative bilaterally, pain with thoraco-lumbar ROM, paraspinal muscle tenderness, thoraco-lumbar ROM limited, No thoracic spinal tenderness and lumbar spinal tenderness Pelvis: buttock tenderness on the right Sacroiliac joints: bilaterally tender to palpation Extrem Other: There is a decreased sensation over the soles of the feet and toes. No breaks in the skin. No soft tissue swelling or warmth. +2 pedal pulses bilaterally. General: Yes capillary refill normal, Yes no clubbing, cyanosis or edema and Yes no calf tenderness Office Procedures Topical Capsaicin Date 1:: 02/26/23 Main area of pain on the body: Bilateral feet Laterality: Bilateral Location of left foot pain: Plantar and Dorsal Location of right foot pain: Plantar and Dorsal Quality of pain: Aching, Stabbing, Burning, Numb-like and Tiring Details:: Two patches, 560 cm2 were utilized per each foot. EMLA Cream (lidocaine 2.5% and prilocaine 2.5%) was applied at home by patient prior to application of the patches. The patient tolerated the procedure well. Patient?s vitals signs remained stable throughout the procedure. Patient was able to complete the stipulated 30 minutes of the therapeutic application without any discomfort. Office Meds capsaicin-skin cleanser 8 % topical kit Performing Provider: GEETA Ha Performing Location: [facility] [place] [facility] Administered by: GEETA Ha on 02/26/23 09:21 Dose Route Admin Location Dispensed Lot Number Expiration Date [facility] Nail Polish Brush Machine Feeder 4 ea topical [facility] 4 ea [id number] 08/28/25 86358-623-09 [employer] Results Reviewed Results Reviewed: MR LUMBAR SPINE WITHOUT CONTRAST 03/12/2020 CLINICAL INFORMATION: Radiculopathy of the left leg. FINDINGS: There are 5 nonrib-bearing lumbar-type vertebral bodies. Lumbar alignment is normal. The vertebral body heights are maintained. There is moderate to severe disc volume loss at L5-S1 and the remaining disc volumes are preserved. There is disc desiccation at all lumbar levels with the exception of L3 on L4. There Modic type I endplate signal changes at L5-S1. There is no additional bone marrow edema. There are no acute fractures. Conus terminates at the L2 level. Bilateral perinephric stranding. Right-sided parapelvic cysts. Shallow central disc protrusions at T11-T12 and T12-L1 mildly narrow the central canal. L1-L2: Small annular disc bulge and mild bilateral facet arthropathy. No central canal stenosis and no foraminal stenosis. L2-L3: Diffuse annular disc bulge and mild to moderate bilateral facet arthropathy. No central canal stenosis. Mild foraminal encroachment bilaterally. L3-L4: There is a annular disc bulge with a superimposed left paracentral disc protrusion that compresses the traversing left L4 nerve root within the left subarticular zone. Mild narrowing of the central canal and mild bilateral foraminal encroachment. L4-L5: Broad-based left paracentral disc protrusion results in posterior deflection of the traversing left L5 nerve root within the left subarticular zone. Background annular disc bulge. Dorsal annular fissure. Mild narrowing of the central canal. Mild to moderate left and mild right foraminal stenosis L5-S1: Broad-based right paracentral disc protrusion compresses the traversing right greater than left S1 nerve roots within the subarticular zones disc osteophyte and facet arthropathy result in severe left and mild to moderate right foraminal stenosis with compression of the exiting left L5 nerve root. 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 IMPRESSION: - At L3-L4, a left paracentral disc protrusion compresses the traversing left L4 nerve root within the left subarticular zone. - At L4-L5, a left paracentral disc protrusion results in posterior deflection of the traversing left L5 nerve root within the left subarticular zone. Dorsal annular fissure. - At L5-S1, a broad-based right paracentral disc protrusion compresses the traversing right greater than left S1 nerve roots within the subarticular zones and multifactorial degenerative changes result in severe left and mild to moderate right foraminal stenosis with compression of the exiting left L5 nerve root. 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 Modic type I endplate signal changes at this level. Assessment & Plan Assessment & Plan (1) Chronic painful diabetic neuropathy: Code(s): E11.40 - Type 2 diabetes mellitus with diabetic neuropathy, unspecified (2) Lumbar post-laminectomy syndrome: Code(s): M96.1 - Postlaminectomy syndrome, not elsewhere classified (3) Lumbar spondylosis: Code(s): M47.816 - Spondylosis without myelopathy or radiculopathy, lumbar region (4) Lumbar radiculopathy: Code(s): M54.16 - Radiculopathy, lumbar region Plan Patient is status post 1st round of application of topical capsaicin 8% for peripheral diabetic neuropathy in bilateral feet. Patient tolerated the procedure without significant discomfort with application of EMLA cream prior to the procedure. She was discharged home in stable condition with discharge instructions. Patient will continue to monitor her blood sugars and notify our office with the next A1C recheck for potential therapeutic SARAI injections for her left radicular symptoms. All questions and concerns were answered and the patient agreed with the plan. Greater than 36 minutes were spent in therapeutic application and in coordination of the care. Orders: Orders AMB Capsaicin Patch - Practice Supplied Today E11.40 - Type 2 diabetes mellitus with diabetic neuropathy, unspecified Quality Reporting (2019) Adult ([facility] 138/2/) Smoking risk assessment performed?: Yes Patient Tobacco Use Status: Current everyday Tobacco user Coding Level of Care Code Est Pt Level 4 (68551) Diagnoses Chronic painful diabetic neuropathy E11.40 Lumbar post-laminectomy syndrome M96.1 Lumbar spondylosis M47.816 Lumbar radiculopathy M54.16
[2023-02-26 09:00] VITALS: BP 149/67; PULSE 86; O2SAT 96; BMI 28.2
[2023-02-26 09:38] VITALS: BP 130/58; PULSE 78; O2SAT 96
[2023-02-26 09:57] VITALS: BP 135/61; PULSE 79; O2SAT 97
== END 2023-02-26 09:59 | disposition home or self-care (01) ==
PROVIDERS: PCP Internal Medicine Geriatric Medicine; Visit Provider Nurse Practitioner Family
DX: E11.40 Type 2 diabetes mellitus with diabetic neuropathy, unspecified (principal); M96.1 Postlaminectomy syndrome, not elsewhere classified; M47.816 Spondylosis without myelopathy or radiculopathy, lumbar region; M54.16 Radiculopathy, lumbar region
CPT/HCPCS: 17999; 99214

== ENCOUNTER → 2023-02-26 08:55 | Outpatient (BNVA) | payer OTHER, SELFPAY | PROVIDERS: PCP Internal Medicine Geriatric Medicine; Visit Provider Nurse Practitioner Family | DX: E11.40 Type 2 diabetes mellitus with diabetic neuropathy, unspecified (principal); M47.26 Other spondylosis with radiculopathy, lumbar region; M96.1 Postlaminectomy syndrome, not elsewhere classified | CPT/HCPCS: 17999; 99212; J7336 ==

== ENCOUNTER 2023-03-18 09:44 | Outpatient (REF) | payer OTHER, SELFPAY | END 2023-03-18 09:45 | disposition home or self-care (01) | LOC: HO.CT 09:44 | PROVIDERS: PCP Internal Medicine Geriatric Medicine; Visit Provider Nurse Practitioner Family | DX: N20.0 Calculus of kidney (principal) | CPT/HCPCS: 74176 ==

== ENCOUNTER 2023-04-01 09:27 | Outpatient (AMB) | payer OTHER, SELFPAY ==
--- NOTE | 2023-04-01 09:32 | MHC.OFFVIS ---
Intake Intake Visit Reasons: 8w/CT Intake Note: Patient is Present for follow up CT Scan results (imaging 03/18/23) Urology Medication: Vitamin b6 Antibiotic Allergies: Erythromycin Blood Thinners: Aspirin Mica Builder Required: No Accompanied by: Self / Same As Patient Allergies HANK Inhibitors [HANK INHIBITORS] Allergy (Severe, Verified 04/01/23 10:37) ANGIO EDEMA enalapril Allergy (Severe, Verified 04/01/23 10:37) Anaphylaxis erythromycin base [ERYTHROMYCIN BASE] Allergy (Severe, Verified 04/01/23 10:37) HIVES ALL OVER hydromorphone [From DILAUDID] Adverse Reaction (Severe, Verified 04/01/23 10:37) TINGLING, PT DOES NOT LIKE THE FEELING MED GIVES HER Medication List - Last Reconciled 04/01/23 by GEETA Bal-VENUS albuterol sulfate 90 mcg/actuation (Ventolin HFA) 2 puffs inhalation Q6H PRN aspirin 81 mg PO BEDTIME atorvastatin 80 mg See Protocol PO BEDTIME blood sugar diagnostic (FreeStyle Lite Strips) As directed calcium citrate-vitamin D3 315 mg-6.25 mcg (250 unit) 1 tab PO BID@1100,2100 carvedilol 6.25 mg PO BID cetirizine 10 mg PO DAILY cholecalciferol (vitamin D3) 50 mcg PO DAILY 90 days docusate sodium 1 cap PO BEDTIME dulaglutide (Trulicity) 1.5 mg subcut REESE@0900 fluticasone propionate 50 mcg/actuation 2 sprays intranasal DAILY PRN dfvvpskpqln-sendpbmjn-orxxznik 100-62.5-25 mcg (Trelegy Ellipta) 1 ea inhalation DAILY insulin glargine (Lantus Solostar U-100 Insulin) 30 units (0.3 mL) subcut BID insulin lispro (Humalog KwikPen (U-100) Insulin) 1 sliding scale dose See Protocol subcut TIDAC ipratropium-albuterol 0.5 mg-3 mg(2.5 mg base)/3 mL 3 mL inhalation QID PRN ipratropium-albuterol 20-100 mcg/actuation (Combivent Respimat) 2 puffs inhalation BID lancets (TRUEplus Lancets) As directed levothyroxine 112 mcg PO DAILY@0600 methocarbamol 750 mg PO Q8H PRN 30 days montelukast 10 mg PO BEDTIME naloxone 4 mg/actuation 1 spray intranasal ONCE PRN omeprazole 20 mg PO BID@0630,1630 oxycodone-acetaminophen 7.5-325 mg 1 tab PO Q6H prednisone 5 mg PO DAILY pregabalin 75 mg PO BID 30 days pyridoxine (vitamin B6) 100 mg PO DAILY 90 days roflumilast 500 mcg PO DAILY sennosides (senna) 17.2 mg PO DAILY varenicline 1 ea PO BID HPI HPI Comments History of Present Illness Details Marita is a pleasant 62-year-old female patient of Dr. David. She has a past medical history of tubular adenoma, diabetes, obstructive sleep apnea, irritable bowel syndrome, hyperthyroidism, polycythemia, smoker, vitamin-D deficiency, goiter, pulmonary nodules, and pneumonia. She presents to the office today for a follow up of her nephrolithiasis. Recent CT KUB results reviewed with the patient today renal imaging results reviewed with the patient today. Bilateral nonobstructing renal calculi largest on the right measuring 8 mm. Mild right renal pelvic collecting system prominence. When asked she does report intermittent bilateral flank pain right-sided greater than left. Discussed at length surveillance monitoring versus surgical intervention. Discussed ESWL versus ureteroscopy. Discussed risks and benefits of these interventions at length. She otherwise denies any bothersome urinary issues or concerns at this time. She denies urinary urgency, urinary frequency, incontinence, nocturia, hematuria, dysuria, foul smelling urine, changes to urinary stream, flank pain, fever, and or chills. She is happy with her current voiding parameters. Discussed at length importance of drinking adequate amount of fluid daily. Discussed adding 1 oz of lemon juice to water daily. In office urinalysis results reviewed with the patient today. She discusses at length taking care of her aunt has been somewhat confused. She otherwise denies any issues or concerns at this time. [facility] Medical History Hypothyroidism, postsurgical Tubular adenoma Diabetes MCKAY (obstructive sleep apnea) Irritable bowel syndrome Hyperthyroidism Polycythemia Smoker Hypoxia COPD exacerbation Lesion of bronchus Tracheal anomaly Multinodular goiter Vitamin D deficiency Atelectasis Subclinical hyperthyroidism Goiter Pneumonia Pulmonary nodules COPD (chronic obstructive pulmonary disease) Surgical History History of thyroid surgery History of esophagogastroduodenoscopy (EGD) Hx of colonoscopy History of back surgery History of ureterostomy S/P lumpectomy, right breast History of cholecystectomy History of tonsillectomy Family History Father No problems noted. Mother No problems noted. Paternal Aunt Diabetes Social History Household Members: Spouse Housing: House Do you presently have visiting nurse or other home services: No Alcohol intake: never Comment: pt refused bed alarm/camera Patient Tobacco Use Status: Current everyday Tobacco user Tobacco use type: Cigarette Cigarette Packs Per Day: 0.5 Cigarettes Per Day: 6 e-Cigarette/Vaping Use: Never Used Second Hand Smoke Exposure: Yes Substance Use Type: Marijuana Advance Directives Date on File: 01/24/21 service: No Current occupational status: disabled Review of Systems Const Reports as per HPI Eyes Reports no additional complaints ENT Reports no additional complaints Card Reports as per HPI Resp Reports as per HPI GI Reports as per HPI Reports as per HPI Musc Reports no additional complaints Neuro Reports no additional complaints Psych Reports no additional complaints Endo Reports as per HPI Physical Exam Const General: cooperative, comfortable, no acute distress, well developed, alert and awake Orientation/consciousness: patient oriented x3 Limitations: no limitations HEENT Head: Yes normal to inspection, Yes normocephalic and Yes atraumatic Ears: hearing grossly normal bilaterally Eyes General: appearance normal, both eyes and all related structures Neck Neck: Yes normal visual inspection and Yes trachea midline Chest Chest palpation & inspection: normal inspection of the chest Resp Effort & Inspection: normal respiratory effort and able to speak in complete sentences Cardio Rate: regular rate GI Inspection: Yes normal to inspection General: Yes no CVA tenderness Back/Spine/Pelvis Back: no CVA tenderness Neuro General: patient oriented x3 Extrem General: Yes normal to inspection Psych Appearance: grossly normal Mental Status: mental status grossly normal Speech and movement: Normal speech and movement present and Clear speech present Affect: normal affect Attitude: cooperative Thought process: Normal thought process present Thought content: Normal thought content present Insight: Fair insight present (Psych) Judgement: Fair judgement present (Psych) Results AMB Urinalysis, Automated UA Leukoctes 15 Augustus/uL Last Edit by Vidal Rosas on 04/01/23 09:49 UA Nitrite Negative Last Edit by Vidal Rosas on 04/01/23 09:49 UA Urobilinogen 0.2 mg/dL Last Edit by Vidal Rosas on 04/01/23 09:49 UA Protein 0 mg/dL Last Edit by Vidal Rosas on 04/01/23 09:49 UA pH 6.0 Last Edit by Vidal Rosas on 04/01/23 09:49 UA Blood 80 [place]/uL Last Edit by Vidal Rosas on 04/01/23 09:49 UA Specific [place] 1.025 Last Edit by Vidal Rosas on 04/01/23 09:49 UA Ketone Negative Last Edit by Vidal Rosas on 04/01/23 09:49 UA Bilirubin 0 mg/dL Last Edit by Vidal Rosas on 04/01/23 09:49 UA Glucose 0 mg/dL Last Edit by Vidal Rosas on 04/01/23 09:49 Results Reviewed Results Reviewed: Laboratory Last Values Urine pH (Auto) 6.0 04/01/23 09:35 Specific [place] (Auto) 1.025 04/01/23 09:35 Urine Protein (Auto) 0 mg/dL 04/01/23 09:35 Glucose (UA)(Auto) 0 mg/dL 04/01/23 09:35 Urine Ketones (Auto) Negative 04/01/23 09:35 Urine Blood (Auto) 80 [place]/uL 04/01/23 09:35 Urine Nitrite (Auto) Negative 04/01/23 09:35 Urine Bilirubin (Auto) 0 mg/dL 04/01/23 09:35 Urine Urobilinogen (Auto) 0.2 mg/dL 04/01/23 09:35 Leukocyte Esterase (Auto) 15 Augustus/uL 04/01/23 09:35 Date of Service: 03/18/23 EXAMINATION: CT KIDNEY STONE FINDINGS: Lower lungs: Nonenlarged heart. No pericardial effusion. Right middle lobe, left lower lobe and lingular atelectasis. Hepatobiliary: Homogeneous liver. No intrahepatic biliary ductal dilatation. Gallbladder not seen. Common bile duct measures 1 cm. Spleen, pancreas and adrenal glands within normal limits. Gastrointestinal: Decompressed stomach. Nonobstructive bowel pattern. Unremarkable terminal ileum and appendix. Moderate fecal retention. Kidneys, ureters and bladder: 8 mm nonobstructing right lower pole renal calculus. Mild right renal pelvic collecting system fullness. No right hydroureter. Tiny nonobstructing left upper pole renal calculi. No left hydroureteronephrosis. Unremarkable urinary bladder. Pelvic organs: Unremarkable. Phleboliths. Lymph nodes: No pathologic lymphadenopathy. Vascular: Atherosclerotic calcifications nonaneurysmal aorta. Unremarkable inferior vena cava. Abdominal wall: Small fat filled helical hernia. Bones and soft tissues: Multilevel spurring and lordotic straightening. Mild L1 and L2 anterior wedging. L5-S1 disc space narrowing, vacuum disc phenomenon, sclerosis and spurring. No suspicious osseous lesions. IMPRESSION: Bilateral nonobstructing renal calculi, largest on the right measuring 8 mm. Mild right renal pelvic collecting system prominence. Assessment & Plan Assessment & Plan (1) Bilateral nephrolithiasis: Code(s): N20.0 - Calculus of kidney Plan: Plan Extracorporeal Shock Wave Lithotripsy We discussed the nature of the decision and reasonable alternatives for performing the above surgery. Interventions include chemical dissolution, ESWL, ureteroscopy with laser lithotripsy and stent placement, PCNL. ? Options such as medical therapy were discussed. The relative uncertainties and benefits related to each alternate procedure were adequately discussed. General surgical risks including, but not limited to, pain, bleeding, infection, myocardial infarction, pulmonary embolus, deep vein thrombosis and cerebrovascular accident which may result in further hospitalization were discussed.? Full disclosure of the procedure as well as all major risks, benefits and complications were discussed including but not limited to risks of bleeding, injury to the kidney with hematoma or noa-hematoma, failure to fragments stone, potential for ureteric obstruction from stone passage and need for secondary procedures.? There is a small long-term risk of hypertension and a question elena of diabetes.? Success rate of fragmentation and passage is approximately 70- 75%.? This is compared to the risks and benefits for ureteroscopy which has a higher success rate but is a more invasive procedure. The success rate of the procedure was discussed. Success of the procedure in the short-term does not necessarily guarantee that long-term success will be maintained. Suitable follow up will need to be maintained. The patient showed understanding of the discussion as well as the typical recovery time, and the outpatient nature of this procedure. Opportunity was given for questions. Repeat-back protocol used to confirm understanding. They wish to proceed with Right ESWL Plan In office urinalysis results reviewed with the patient today; as noted above. Recent CT KUB results reviewed with the patient today; as noted above. Discussed treatment options of surveillance monitoring verses ESWL versus ureteroscopy; this was discussed at length; discussed risks and benefits of these interventions. Patient denies any bothersome urinary issues or concerns at this time. Patient reports to be happy with current voiding parameters. Discussed, educated, and stressed the importance of drinking plenty of water daily. Discussed adding 1 oz of lemon juice to water daily. Continue vitamin B6 as discussed and prescribed. Discussed and stressed the importance of limiting/quitting smoking for overall health and well-being. Will schedule for right-sided ESWL as discussed with Dr. Srinivasan; discussed stopping all blood thinners 2 weeks prior to surgical procedure. Follow-up status post Dr. Srinivasan's orders; or sooner with any issues, concerns, and or questions. Orders: Orders AMB Urinalysis Automated Today Z13.9 - Encounter for screening, unspecified Patient Instructions: The patient had an opportunity to ask questions regarding the treatment plan. All questions were answered. Physical exam, labs, and imaging were discussed and reviewed in detail. As well as risks, benefits, and discussion of treatment choices. No major barriers to understanding were identified. The patient expressed understanding and agreement with the above treatment plan. The patient was made aware they should contact our office by phone for worsening of their current condition, the appearance of new symptoms, or with any questions or concerns. Compliance is encouraged with any medications and follow up testing that is ordered. It is a privilege to be allowed the opportunity to participate in? your urological care.? Again, if you have any questions or concerns If you have any questions or concerns please do not hesitate to contact me. The office is [phone]. This note is constructed using voice recognition software. While every effort has been made to ensure accuracy german tutor errors may have been included. Yours sincerely, GEETA Bal- Quality Reporting (2019) Adult ([facility] 138/05/21/68) Smoking risk assessment performed?: Yes Patient Tobacco Use Status: Current everyday Tobacco user Coding Level of Care Code Est Pt Level 4 (19569) Diagnoses Bilateral nephrolithiasis N20.0
== END 2023-04-01 10:18 | disposition home or self-care (01) ==
PROVIDERS: PCP Internal Medicine Geriatric Medicine; Visit Provider Nurse Practitioner Family
DX: N20.0 Calculus of kidney (principal)
CPT/HCPCS: 99214

== ENCOUNTER → 2023-04-01 09:27 | Outpatient (BNVA) | payer OTHER, SELFPAY | PROVIDERS: PCP Internal Medicine Geriatric Medicine; Visit Provider Nurse Practitioner Family | DX: N20.0 Calculus of kidney (principal) | CPT/HCPCS: 81003; 99212 ==

== ENCOUNTER 2023-04-21 14:30 | Outpatient (REF) | payer OTHER, SELFPAY ==
--- NOTE | ~2023-04-21 | XR_ITS ---
EXAMINATION: XR CHEST CLINICAL INFORMATION: Cough for many months COMPARISON: 01/30/2023 TECHNIQUE: 2 views of the chest were obtained. FINDINGS: No significant abnormality is noted involving the heart, lungs, mediastinum, bony thorax or soft tissues. XR/XR chest 2V IMPRESSION: Unremarkable examination.
== END 2023-04-21 14:31 | disposition home or self-care (01) ==
LOC: HO.HHCX 14:30
PROVIDERS: Visit Provider Internal Medicine
DX: J44.1 Chronic obstructive pulmonary disease with (acute) exacerbation (principal)
CPT/HCPCS: 71046

== ENCOUNTER 2023-05-28 09:49 | Outpatient (AMB) | payer OTHER, SELFPAY ==
--- NOTE | 2023-05-28 09:52 | MHC.OFFVIS ---
Intake Vital Signs 05/28/23 09:56 05/28/23 11:14 05/28/23 11:15 Height 5 ft 5 in 5 ft 5 in 5 ft 5 in Weight 170 lb 170 lb 170 lb BMI 28.3 28.3 28.3 BP 118/69 127/60 121/66 Blood Pressure Location Lt brachial Lt brachial Lt brachial Position Sitting Sitting Sitting Pulse 76 70 69 Pulse Source Pulse Oximeter Pulse Oximeter Pulse Oximeter Pulse Oximetry (%) 96 96 96 Oxygen Delivery Method Room Air Room Air Room Air Comment 15 mins after Qutenza application 30 mins after qutenza application Intake Visit Reasons: QUTENZA Intake Note: Pain today 09/06 Handbook Writer Required: No Accompanied by: Self / Same As Patient Allergies HANK Inhibitors [HANK INHIBITORS] Allergy (Severe, Verified 05/28/23 09:57) ANGIO EDEMA enalapril Allergy (Severe, Verified 05/28/23 09:57) Anaphylaxis erythromycin base [ERYTHROMYCIN BASE] Allergy (Severe, Verified 05/28/23 09:57) HIVES ALL OVER hydromorphone [From DILAUDID] Adverse Reaction (Severe, Verified 05/28/23 09:57) TINGLING, PT DOES NOT LIKE THE FEELING MED GIVES HER HPI HPI Comments History of Present Illness Details Patient presents for 2nd application of capsaicin 8% topical patch for diabetic neuropathy in bilateral feet. Patient reports after first Qutenza application she had no pain in her feet for 14 days after which baseline numbness, tingling and burning returned, worse at night. Patient also continues to endorse low back pain that radiates into her left lower extremity laterally and anteriorly with stabbing and shooting pain. Reports methocarbamol has been effective and requests refill for this. We discussed interventional treatments for her axial and radicular symptoms. Patient is hesitant toward injections and is not candidate for therapeutic injections due to elevated A1C levels. Patient states she restarted prednisone taper yesterday for COPD exacerbation. She manages her blood sugars spikes with Insulin during prednisone intake. Reports A1C fluctuates 7.0-10.0. Denies cough, cold, infection, fever, bladder or bowel dysfunction or saddle anesthesia. Patient also reports she is planning to undergo ESWL procedure for kidney stones. PRIOR: Patient presents today for medication review. Patient reports methocarbamol 750 mg Q8H prn has been well tolerated and effective for her. We tried prescribing BID prn for past few month, patient reports she has noticied significant discomfort with decreased dose. She is suffering from chronic back pain with left sided radiculopathy, lumbar post laminectomy syndrome, sacroiliac joint pain, painful diabetic neuropathy, muscle spasms and stiffness, kidney stones and more recently dealing with hyperthyroidism and multinodular goiter. She reports A1C>9.2 therefore is not candidate for therapeutic injections. Patient reports gabapentin has not been effective. She is also prescribed Percocet by her PCP which along with methocarbamol allows her to be less symptomatic and more functional. Denies any fever, bladder or bowel incontinence or saddle anesthesia. PRIOR: Patient presents today for follow up and medication discussion. Patient was initially seen on 10/07/21 without other follow ups. Patient reports she initiated physical therapy in summer 2021 but had to stop due to worsening pain and COVID illness. She was hospitalized twice last year in October and January 2022 for acute hypoxemic respiratory failure secondary to COVID and COPD exacerbation and was treated with nebs steroids, supplement oxygen with continued symptoms of post COVID sequelae. She continues to smoke and has been working on decreasing amount of daily cigarettes. Patient reports chronic low back pain with muscle stiffness and spasms that radiates into her left lower extremity laterally to the dorsum of left foot and toes with numbness and tingling. Reports worsening of pain with lumbar flexion as well as prolonged walking forward bending, changing positions and cold and rainy weather changes. Her axial back pain has been minimal. She is insulin dependent diabetic with noted elevation of blood sugars during January and February due to inhaled and oral steroid intake for COPD and COVID illness few month ago. Patient reports next follow up with her PCP in 2 weeks with recheck of A1C. If her AIC 8.5, we will consider Left L4-L5 TFESI. She has been taking gabapentin 300 mg tid prn and oxycodone prn for severe pain with partial relief. This is prescribed by her PCP. Methocarbamol has been effective for muscle spasms without noted side effects. Lumbar spine MRI in 2019 were reviewed with patient today and is noted below. Patient denies any fever, chest pain, shortness of breaths, abdominal or groin pain, bladder or bowel incontinence or saddle anesthesia. PRIOR 10/07/21: Patient is a pleasant 60 year old female with back surgery a year ago by Dr. Whelan presents today with lower back pain that radiates into her left lower extremity laterally with numbness and tingling in her left foot. She reports walking has improved after back surgery but muscle spasms have been ?terrifying and not controllable.? Patient states her back pain also travels upwards toward mid back and in between shoulder blades. Pain is described as constant aching, pins and needles, throbbing, burning, and spasming sensations which worsen during the evenings and middle of the night with highest pain intensity at 9/10. Patient reports her pain is increased with walking over 20 minutes, prolonged sitting or standing. She cannot get comfortable during the night and has been sleeping poorly. She has been trying to control her pain with tizanidine and Percocet 7.5-325 mg QID prn with continued symptoms. Patient has received lumbar injection x1 prior to back surgery with only one week of pain relief. She completed physical therapy with a TENS unit and weighted ice packs with mild to moderate improvements. No MRIs or lumbar x rays were done after back surgery per patient. She is interested in neuromodulation treatment modalities but would like to restart physical therapy and obtain her personal TENS unit. Patient denies any fever, chills, malaise, abdominal or groin pain, weakness, bowel/bladder incontinence or saddle anesthesia. She ambulates with normal gait without assisting devices. [facility] Medical History Hypothyroidism, postsurgical Tubular adenoma Diabetes MCKAY (obstructive sleep apnea) Irritable bowel syndrome Hyperthyroidism Polycythemia Smoker Hypoxia COPD exacerbation Lesion of bronchus Tracheal anomaly Multinodular goiter Vitamin D deficiency Atelectasis Subclinical hyperthyroidism Goiter Pneumonia Pulmonary nodules COPD (chronic obstructive pulmonary disease) Surgical History History of thyroid surgery History of esophagogastroduodenoscopy (EGD) Hx of colonoscopy History of back surgery History of ureterostomy S/P lumpectomy, right breast History of cholecystectomy History of tonsillectomy Family History Father No problems noted. Mother No problems noted. Paternal Aunt Diabetes Social History (Reviewed 05/28/23 @ 09:58 by MARC Ha Household Members: Spouse Housing: House Do you presently have visiting nurse or other home services: No Alcohol intake: never Comment: pt refused bed alarm/camera Patient Tobacco Use Status: Current everyday Tobacco user Tobacco use type: Cigarette Cigarette Packs Per Day: 0.5 Cigarettes Per Day: 6 e-Cigarette/Vaping Use: Never Used Second Hand Smoke Exposure: Yes Substance Use Type: Marijuana Advance Directives Date on File: 01/24/21 service: No Current occupational status: disabled Review of Systems Const All systems reviewed & are unremarkable except as noted in HPI and below Physical Exam Vital Signs: Last Vital Signs Pulse 69 05/28/23 11:15 BP 121/66 05/28/23 11:15 Pulse Ox 96 05/28/23 11:15 Oxygen Delivery Method Room Air 05/28/23 11:15 BMI result Body Mass Index 28.3 General: Appears afebrile. Alert and oriented. Mood and affect appropriate. Follows and participates in conversation appropriately. Respiratory effort is unlabored. No cough. Able to transition from sit to stand unassisted. Ambulates with bilaterally normal heel strike and toe off. General: Yes no CVA tenderness Back/Spine/Pelvis Back: no CVA tenderness Cervical Spine: cervical ROM normal Thoracic/Lumbar Spine: thoracic and lumbar spine normal to inspection, Lasegue's sign negative, straight leg raise negative bilaterally, pain with thoraco-lumbar ROM, paraspinal muscle tenderness, No thoracic spinal tenderness and lumbar spinal tenderness (L3-S1) Pelvis: buttock tenderness on the left Sacroiliac joints: bilaterally tender to palpation Extrem Other: There is a decreased sensation over the soles of the feet and toes. No breaks in the skin. No soft tissue swelling or warmth. +2 pedal pulses bilaterally. Normal capillary refill. No calf tenderness. No clubbing, cyanosis or edema. Office Procedures Topical Capsaicin Date 1:: 02/26/23 Date 2:: 05/28/23 Main area of pain on the body: Bilateral feet and toes Laterality: Bilateral Location of left foot pain: Plantar, Dorsal, Medial and Distal Location of right foot pain: Plantar, Dorsal, Medial and Distal Quality of pain: Aching, Nagging, Burning, Gnawing, Numb-like and Tiring Details:: Two patches, 560 cm2 were utilized per each foot. EMLA Cream (lidocaine 2.5% and prilocaine 2.5%) was applied at home by patient prior to application of the patches. The patient tolerated the procedure well. Patient?s vitals signs remained stable throughout the procedure. Patient was able to complete the stipulated 30 minutes of the therapeutic application without any discomfort. Office Meds capsaicin-skin cleanser 8 % topical kit Performing Provider: GEETA Ha Performing Location: [facility] Administered by: GEETA Ha on 05/28/23 10:12 Dose Route Admin Location Dispensed Lot Number Expiration Date NDC Acetylene Operator 4 ea topical [facility] 4 ea [id number] 03/30/25 07624-238-91 BOOK [employer]ER Results Reviewed Results Reviewed: MR LUMBAR SPINE WITHOUT CONTRAST 03/12/2020 CLINICAL INFORMATION: Radiculopathy of the left leg. FINDINGS: There are 5 nonrib-bearing lumbar-type vertebral bodies. Lumbar alignment is normal. The vertebral body heights are maintained. There is moderate to severe disc volume loss at L5-S1 and the remaining disc volumes are preserved. There is disc desiccation at all lumbar levels with the exception of L3 on L4. There Modic type I endplate signal changes at L5-S1. There is no additional bone marrow edema. There are no acute fractures. Conus terminates at the L2 level. Bilateral perinephric stranding. Right-sided parapelvic cysts. Shallow central disc protrusions at T11-T12 and T12-L1 mildly narrow the central canal. L1-L2: Small annular disc bulge and mild bilateral facet arthropathy. No central canal stenosis and no foraminal stenosis. L2-L3: Diffuse annular disc bulge and mild to moderate bilateral facet arthropathy. No central canal stenosis. Mild foraminal encroachment bilaterally. L3-L4: There is a annular disc bulge with a superimposed left paracentral disc protrusion that compresses the traversing left L4 nerve root within the left subarticular zone. Mild narrowing of the central canal and mild bilateral foraminal encroachment. L4-L5: Broad-based left paracentral disc protrusion results in posterior deflection of the traversing left L5 nerve root within the left subarticular zone. Background annular disc bulge. Dorsal annular fissure. Mild narrowing of the central canal. Mild to moderate left and mild right foraminal stenosis L5-S1: Broad-based right paracentral disc protrusion compresses the traversing right greater than left S1 nerve roots within the subarticular zones disc osteophyte and facet arthropathy result in severe left and mild to moderate right foraminal stenosis with compression of the exiting left L5 nerve root. 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 IMPRESSION: - At L3-L4, a left paracentral disc protrusion compresses the traversing left L4 nerve root within the left subarticular zone. - At L4-L5, a left paracentral disc protrusion results in posterior deflection of the traversing left L5 nerve root within the left subarticular zone. Dorsal annular fissure. - At L5-S1, a broad-based right paracentral disc protrusion compresses the traversing right greater than left S1 nerve roots within the subarticular zones and multifactorial degenerative changes result in severe left and mild to moderate right foraminal stenosis with compression of the exiting left L5 nerve root. 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 Modic type I endplate signal changes at this level. Assessment & Plan Assessment & Plan (1) Chronic painful diabetic neuropathy: Code(s): E11.40 - Type 2 diabetes mellitus with diabetic neuropathy, unspecified (2) Lumbar post-laminectomy syndrome: Code(s): M96.1 - Postlaminectomy syndrome, not elsewhere classified (3) Lumbar spondylosis: Code(s): M47.816 - Spondylosis without myelopathy or radiculopathy, lumbar region (4) Lumbar radiculopathy: Code(s): M54.16 - Radiculopathy, lumbar region Plan Patient is status post 2nd round of application of topical capsaicin 8% for peripheral diabetic neuropathy in bilateral feet. Patient tolerated the procedure without significant discomfort with application of EMLA cream prior to the procedure. She was discharged home in stable condition with discharge instructions. Discussed neuromodulation and diagnostic vs therapeutic injections for axial and radicular back symptoms. Patient reports her A1C has been fluctuating 7-10.0 due to prednisone daily intake. She manages elevated blood sugars with insulin coverage. Patient is not interested in interventional treatments at this time. Refill provided for methocarbamol. We reviewed SCS vs Sprint PNS trials once A1C remains below 8.0, patient is not interested. All questions and concerns were answered and the patient agreed with the plan. Greater than 40 minutes were spent in therapeutic application and in coordination of the care. Orders: Orders AMB Capsaicin Patch - Practice Supplied Today E11.40 - Type 2 diabetes mellitus with diabetic neuropathy, unspecified Medications: New lidocaine-prilocaine 2.5-2.5 % Apply to clean feet 15-30 min prior to next Qutenza application 1 appl topical ONCE 30 grams 0RF pain E11.40 - Type 2 diabetes mellitus with diabetic neuropathy, unspecified Refilled methocarbamol 750 mg PO Q8H 30 days PRN 90 tabs 3RF for muscle spasm M62.830 - Muscle spasm of back, M96.1 - Postlaminectomy syndrome, not elsewhere classified Quality Reporting (2019) Adult ([facility] 138/05/21/68) Smoking risk assessment performed?: Yes Patient Tobacco Use Status: Current everyday Tobacco user Coding Level of Care Code Est Pt Level 4 (03062) Diagnoses Chronic painful diabetic neuropathy E11.40 Lumbar post-laminectomy syndrome M96.1 Lumbar spondylosis M47.816 Lumbar radiculopathy M54.16
[2023-05-28 09:56] VITALS: BP 118/69; PULSE 76; O2SAT 96; BMI 28.3
[2023-05-28 11:14] VITALS: BP 127/60; PULSE 70; O2SAT 96; BMI 28.3
[2023-05-28 11:15] VITALS: BP 121/66; PULSE 69; O2SAT 96; BMI 28.3
== END 2023-05-28 11:00 | disposition home or self-care (01) ==
PROVIDERS: PCP Internal Medicine Geriatric Medicine; Visit Provider Nurse Practitioner Family
DX: E11.40 Type 2 diabetes mellitus with diabetic neuropathy, unspecified (principal); M96.1 Postlaminectomy syndrome, not elsewhere classified; M47.816 Spondylosis without myelopathy or radiculopathy, lumbar region; M54.16 Radiculopathy, lumbar region
CPT/HCPCS: 17999; 99214

== ENCOUNTER → 2023-05-28 09:49 | Outpatient (BNVA) | payer OTHER, SELFPAY | PROVIDERS: PCP Internal Medicine Geriatric Medicine; Visit Provider Nurse Practitioner Family | DX: E11.40 Type 2 diabetes mellitus with diabetic neuropathy, unspecified (principal); M96.1 Postlaminectomy syndrome, not elsewhere classified; M47.816 Spondylosis without myelopathy or radiculopathy, lumbar region; M54.16 Radiculopathy, lumbar region | CPT/HCPCS: 17999; 99212; J7336 ==

== ENCOUNTER 2023-06-03 09:21 | Outpatient (AMB) | payer OTHER, SELFPAY ==
--- NOTE | 2023-06-03 09:24 | MHC.OFFVIS ---
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 She has had multiple hospitalizations for her COPD exacerbations. Also requiring multiple prednisone tapers in currently on chronic prednisone 5 mg daily. She was evaluated in the hospital back in April and in July. She did have chest x-rays demonstrating bilateral hazy opacities. On repeat x-rays from October 2019 it appeared that she still has a persistent opacity in the right infrahilar area. Therefore, CT scan of the chest is warranted. The patient is no longer smoking that she quit 2 years ago. However, she still exposed to secondhand smoke. She continues use her nebulizer 1 or twice a day. And she continues to use her respiratory regimen with partial resolution of her symptoms. She does complaint of shortness of breath [id number] severity with activity. And she also complains of cough usually productive in nature with either wider yellowish sputum. In the office we did have her go for 6 minutes walk test. She was able to ambulate 700 ft. Her Hillary score was 7/10 suggesting that she was in the dyspneic. Her pulse ox was indeed reassuring 94-95% throughout the ambulation. 01/24/2022 the patient is here for a pulmonary follow-up visit. Since we last spoke she has had a tough few weeks. Beginning December she started developing worsening respiratory symptoms with cough. Ultimately now her cough has become more productive greenish in color. During the last time I saw her back in the springtime she did have a COPD exacerbation requiring antibiotics and prednisone. Now with her symptoms getting worse she was able to take 20 mg of prednisone that she had and she did feel little better. She did have a CT scan of the chest sometime in the beginning of December demonstrating areas of ground-glass opacities. It is likely that she possibly had a lower respiratory viral infection and ultimately resulted in a postviral bacterial infection. She continues use her nebulizers. On examination she does have some wheezing and rhonchi. 07/25/2022 the patient is here for pulmonary follow-up visit. Since we last spoke patient ended up going to the [facility] with COPD exacerbation. She had acute respiratory failure home. She was treated for about 3-4 days since she was released. The patient had a chest x-ray demonstrating atelectasis. She was able to wean off the oxygen when she went home. Unfortunately she continues to smoke cigarettes. She also has issues with hyperparathyroidism and she has lost significant amount of weight. She recently saw her primary care doctor was placed on prednisone for COPD exacerbation. She is bringing up some mucus although is clear. The patient has allergies to antibiotics including macrolides. We did go for brief walking oximetry and she did very well maintaining a pulse ox noted. 11/24/2022 the patient is here for pulmonary follow-up visit. Overall the patient has been losing weight. She was diagnosed with apparently Lori disease, hyperthyroidism. She needs to undergo surgery. The patient is here for preoperative evaluation. She continues on the Trelegy inhaler which has been affecting beneficial. She has not required any additional prednisone. She does take 5 mg daily. She recently had a fall and she factor multiple bones but she healed okay which is reassuring. She continues to smoke unfortunately. She is trying to cut down before surgery. She did do well with Chantix in the past she quit smoking for 3 years on it. Then she tried again and cause severe nausea and vomiting and she had to stop it. I do believe that she should restarted or consider a 3rd course possibly after surgery. We did have her undergo pulmonary function studies spirometry in the office. It appears that she does have a severe obstruction consistent with severe COPD. Therefore explained to the patient that she is high risk for perioperative pulmonary complications which include COPD exacerbations, atelectasis, hypoxia, pneumonia and prolonged mechanical ventilation. At least a pulmonary standpoint the patient is medically optimize. The patient is able to proceed with anesthesia and surgery understanding that she is high risk for these potential complications. 09/17/2023 the patient is here for a pulmonary follow-up visit overall the patient doing fairly well. She did have to call the dispatch because she was having difficulty breathing. She was given a short course of prednisone and now back to her based on prednisone 5 mg. She states that after her thyroid surgery back in the fall of 2022 her breathing has not been complete normal. She has had some just increased work of breathing but at this point is gotten better. Will continue to monitor her progress although right now her breathing is good I do not appreciate any stridor and she does not have any wheezing on examination. Therefore her respiratory therapy is stable. She is having issues with kidney stones. The patient is scheduled to undergo lithotripsy at this point. She will need to be under anesthesia. She does have increased risk for perioperative pulmonary complications due to her COPD and her chronic steroids but at this point she is medically optimize and is able to proceeding consent for anesthesia and surgery. We did review her chest x-ray that she had back in March 2023 demonstrating no acute disease which is reassuring. She is scheduled for CT scan of the chest because will monitoring closely pulmonary nodules in her lung cancer screening. Will plan to follow-up in 6 months with pulmonary function studies to assess her flow volume loop. [facility] Medical History (Updated 06/03/23 @ 09:51 by Fidel White MD) Cough Hypothyroidism, postsurgical Tubular adenoma Diabetes MCKAY (obstructive sleep apnea) Irritable bowel syndrome Hyperthyroidism Polycythemia Smoker Hypoxia COPD exacerbation Lesion of bronchus Tracheal anomaly Multinodular goiter Vitamin D deficiency Atelectasis Subclinical hyperthyroidism Goiter Pneumonia Pulmonary nodules COPD (chronic obstructive pulmonary disease) Surgical History History of thyroid surgery History of esophagogastroduodenoscopy (EGD) Hx of colonoscopy History of back surgery History of ureterostomy S/P lumpectomy, right breast History of cholecystectomy History of tonsillectomy Family History Father No problems noted. Mother No problems noted. Paternal Aunt Diabetes Social History Household Members: Spouse Housing: House Do you presently have visiting nurse or other home services: No Alcohol intake: never Comment: pt refused bed alarm/camera Patient Tobacco Use Status: Current everyday Tobacco user Tobacco use type: Cigarette Cigarette Packs Per Day: 0.5 Cigarettes Per Day: 6 e-Cigarette/Vaping Use: Never Used Second Hand Smoke Exposure: Yes Substance Use Type: Marijuana Advance Directives Date on File: 01/24/21 service: No Current occupational status: disabled Review of Systems Const Reports fatigue and Reports weight loss ENT Denies change in voice, Denies lip swelling, Denies mouth pain, Reports nasal congestion, Reports nasal discharge and Denies tongue swelling Card Denies chest pain and Denies dyspnea on exertion Resp Denies chest congestion, Reports cough and Denies dyspnea on exertion GI Denies abdominal pain Musc Denies no additional complaints Neuro Denies Neuro-related abnormal movements Psych Denies no additional complaints Endo Reports fatigue Alberto/Lymph Denies easy bleeding and Denies lymphadenopathy Aller/Immun Denies lip swelling and Denies tongue swelling Physical Exam Vital Signs: Last Vital Signs Pulse 76 06/03/23 09:27 BP 122/60 06/03/23 09:27 Pulse Ox 98 06/03/23 09:27 Oxygen Delivery Method Room Air 06/03/23 09:27 BMI result Body Mass Index 28.3 Const General: healthy appearing, no acute distress and well developed Nutritional Appearance: well nourished Orientation/consciousness: patient oriented x3 HEENT Head: Yes normal to inspection, Yes normocephalic and Yes atraumatic Face and sinus: Yes normal facial exam Mouth: Normal oral and palatal mucosa present Throat: Yes posterior oropharynx normal, Yes tonsils normal and Yes uvula midline Neck Neck: Yes normal visual inspection, Yes full ROM and Yes trachea midline Thyroid: Thyroid normal Chest Chest palpation & inspection: normal inspection of the chest Resp Effort & Inspection: normal respiratory effort and no tracheal deviation Auscultation: wheezes and diminished lung sounds Cardio Rate: regular rate Heart sounds: S1 normal heart sound present, S2 normal heart sound present, no gallops and no murmurs GI Inspection: No distended Palpation (GI): Soft to palpation Skin General skin exam: no rashes or lesions noted Neuro General: patient oriented x3 Extrem General: Yes no clubbing, cyanosis or edema Psych Appearance: grossly normal Mental Status: mental status grossly normal Speech and movement: Normal speech and movement present Affect: normal affect Attitude: cooperative Thought process: Normal thought process present Thought content: Normal thought content present Insight: Good insight present (Psych) Judgement: Good judgement present (Psych) Assessment & Plan Assessment & Plan (1) Pre-op chest exam: Code(s): Z01.811 - Encounter for preprocedural respiratory examination (2) Atelectasis: Code(s): J98.11 - Atelectasis (3) COPD (chronic obstructive pulmonary disease): Code(s): J44.9 - Chronic obstructive pulmonary disease, unspecified Qualifiers: COPD type: unspecified COPD Qualified Code(s): J44.9 - Chronic obstructive pulmonary disease, unspecified (4) MCKAY (obstructive sleep apnea): Code(s): G47.33 - Obstructive sleep apnea (adult) (pediatric) (5) Pulmonary nodules: Code(s): R91.8 - Other nonspecific abnormal finding of lung field (6) Cough: Code(s): R05.9 - Cough, unspecified Qualifiers: Cough type: chronic Qualified Code(s): R05.3 - Chronic cough Plan The patient is scheduled to undergo surgery for her kidney stone. The patient is high risk for perioperative pulmonary complication due to her severe COPD and her chronic prednisone use. This risk include; bronchospasms, atelectasis, hypoxia, pneumonia and prolonged mechanical ventilation. She recently tolerated anesthesia well back in the Fall 2022. At this point he is medically optimize with her inhaler therapy and nebulized therapy. Please provide her with pre and post bronchodilator therapy would recommend minimizing the duration of the general anesthesia. Continue Trelegy Duoneb/Combivent as needed continue Prednisone 5mg daily Needs to stop smoking continue Daliresp PFTs in [address] chest May 2023 F/U 6 months Orders: Orders Sputum Cult + Gram stain Today R05.9 - Cough, unspecified Quality Reporting (2019) Adult ([facility] 138/05/21/68) Smoking risk assessment performed?: Yes Patient Tobacco Use Status: Current everyday Tobacco user Coding Level of Care Code Est Pt Level 4 (41647) Diagnoses Pre-op chest exam Z01.811 Atelectasis J98.11 Simple chronic bronchitis J44.9 COPD type: unspecified COPD MCKAY (obstructive sleep apnea) G47.33 Pulmonary nodules R91.8 Chronic cough R05.3 Cough type: chronic Time Spent (min) 18
[2023-06-03 09:27] VITALS: BP 122/60; PULSE 76; O2SAT 98; BMI 28.3
== END 2023-06-03 09:46 | disposition home or self-care (01) ==
PROVIDERS: PCP Internal Medicine Geriatric Medicine; Visit Provider Hospitalist
DX: Z01.811 Encounter for preprocedural respiratory examination (principal); J98.11 Atelectasis; J44.9 Chronic obstructive pulmonary disease, unspecified; G47.33 Obstructive sleep apnea (adult) (pediatric); R91.8 Other nonspecific abnormal finding of lung field; R05.3 Chronic cough
CPT/HCPCS: 99214

== ENCOUNTER → 2023-06-03 09:21 | Outpatient (BNVA) | payer OTHER, SELFPAY | PROVIDERS: PCP Internal Medicine Geriatric Medicine; Visit Provider Hospitalist | DX: Z01.811 Encounter for preprocedural respiratory examination (principal); J98.11 Atelectasis; J44.9 Chronic obstructive pulmonary disease, unspecified; R91.8 Other nonspecific abnormal finding of lung field; R05.3 Chronic cough; G47.33 Obstructive sleep apnea (adult) (pediatric) | CPT/HCPCS: 99212 ==

== ENCOUNTER 2023-06-09 07:24 | Outpatient (REF) | payer OTHER, SELFPAY ==
--- NOTE | ~2023-06-09 | CT_ITS ---
EXAMINATION: CT CHEST WITHOUT CONTRAST CLINICAL INFORMATION: Follow-up pulmonary nodules. COMPARISON: CTA chest 10/20/2022. TECHNIQUE: Multidetector volumetric CT imaging of the chest was done. Axial MIP volume rendering provided. Sagittal and coronal reformatted images were obtained. This CT examination was performed using dose optimization techniques as appropriate, variously including the following: Automated exposure control. Adjustment of mA and/or kV according to patient size (this includes techniques or standardized protocols for targeted exams where dose is matched to indication/reason for exam; i.e. extremities or head). Use of iterative reconstruction technique. DLP: 173 mGy-cm. FINDINGS: LUNGS: Scarring/atelectasis are present in the lingula and right middle lobe. No suspicious lung masses are seen. 2 mm left upper lobe nodule is unchanged (5:180 compare prior 7:150). A 3 mm right lower lobe nodule is unchanged (5:236 compare prior 7:203). When the current study is compared to the prior study, interstitial prominence is significantly less, and in retrospect, it is possible that the patient may have had some mild interstitial edema on the 10/20/2022 study causing the shortness of breath at that time. A worrisome finding is not seen currently. MEDIASTINUM: The mediastinum is normal. CORONARY ARTERY CALCIFICATION: Mild. PLEURA: There is no pleural effusion. No pleural mass or thickening. AXILLA: No lymphadenopathy. UPPER ABDOMEN: 2 mm punctate nonobstructing left upper pole renal calculus (3:62). OSSEOUS STRUCTURES: Unremarkable. CT/CT chest wo IV con IMPRESSION: 1. Stable small pulmonary nodules. 2. Incidental note made of a 2 mm nonobstructing left upper pole renal calculus. 3. Interstitial prominence has resolved since the prior study. Fleischner guidelines were followed.
== END 2023-06-09 07:25 | disposition home or self-care (01) ==
LOC: HO.CT 07:24
PROVIDERS: PCP Internal Medicine Geriatric Medicine; Visit Provider Hospitalist
DX: R91.8 Other nonspecific abnormal finding of lung field (principal)
CPT/HCPCS: 71250

== ENCOUNTER 2023-06-10 14:40 | Outpatient (AMB) | payer OTHER, SELFPAY ==
--- NOTE | 2023-06-10 14:40 | A.OFFVIS_ITS ---
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 She is a patient of Dr. David. She is seen for the following urologic conditions - nephrolithiasis Telemedicine Evaluation 15 min Consultation [employer] Video attempted Has upcoming right ESWL Discussed need to hold Trulicity for 7 days prior and aspirin as well as other nonsteroidals Questions answered Nephrolithiasis Recurrent stone former Imaging - 03/21 8 mm nonobstructing right lower pole renal calculus. Mild right renal pelvic collecting system fullness. No right hydroureter. Plan ESWL [facility] Medical History History of back pain History of neuropathy Smokes tobacco daily Opioid dependence Nephrolithiasis Hyperlipidemia HTN (hypertension) Cardiomyopathy Myocardial infarction CAD (coronary artery disease) Cough Hypothyroidism, postsurgical Tubular adenoma Diabetes MCKAY (obstructive sleep apnea) Irritable bowel syndrome Hyperthyroidism Polycythemia Smoker Hypoxia COPD exacerbation Lesion of bronchus Tracheal anomaly Multinodular goiter Vitamin D deficiency Atelectasis Subclinical hyperthyroidism Goiter Pneumonia Pulmonary nodules COPD (chronic obstructive pulmonary disease) Surgical History History of coronary artery stent placement Hx of thyroidectomy History of thyroid surgery History of esophagogastroduodenoscopy (EGD) Hx of colonoscopy History of back surgery History of ureterostomy S/P lumpectomy, right breast History of cholecystectomy History of tonsillectomy Family History Father No problems noted. Mother No problems noted. Paternal Aunt Diabetes Social History Household Members: Spouse Housing: House Do you presently have visiting nurse or other home services: No Alcohol intake: never Comment: pt refused bed alarm/camera Patient Tobacco Use Status: Current everyday Tobacco user Tobacco use type: Cigarette Cigarette Packs Per Day: 0.5 Cigarettes Per Day: 6 e-Cigarette/Vaping Use: Never Used Second Hand Smoke Exposure: Yes Substance Use Type: Marijuana Advance Directives Date on File: 01/24/21 service: No Current occupational status: disabled Review of Systems Const All systems reviewed & are unremarkable except as noted in HPI and below Reports no additional complaints Resp Reports no additional complaints GI Reports no additional complaints Reports as per HPI Musc Reports no additional complaints Physical Exam Telemedicine evaluation Appropriate responses Regular breathing rate and rhythm HEENT Head: Yes normal to inspection Ears: hearing grossly normal bilaterally Eyes General: appearance normal, both eyes and all related structures Neck Neck: Yes normal visual inspection Chest Chest palpation & inspection: normal inspection of the chest Resp Effort & Inspection: normal respiratory effort and able to speak in complete sentences Assessment & Plan Assessment & Plan (1) Bilateral nephrolithiasis: Code(s): N20.0 - Calculus of kidney Plan Extracorporeal Shock Wave Lithotripsy We discussed the nature of the decision and reasonable alternatives for performing the above surgery. Interventions include chemical dissolution, ESWL, ureteroscopy with laser lithotripsy and stent placement, PCNL. Options such as medical therapy were discussed. The relative uncertainties and benefits related to each alternate procedure were adequately discussed. General surgical risks including, but not limited to, pain, bleeding, infection, myocardial infarction, pulmonary embolus, deep vein thrombosis and cerebrovascular accident which may result in further hospitalization were discussed. Full disclosure of the procedure as well as all major risks, benefits and complications were discussed including but not limited to risks of bleeding, injury to the kidney with hematoma or noa-hematoma, failure to fragments stone, potential for ureteric obstruction from stone passage and need for secondary procedures. There is a small long-term risk of hypertension and a question elena of diabetes. Success rate of fragmentation and passage is approximately 70- 75%. This is compared to the risks and benefits for ureteroscopy which has a higher success rate but is a more invasive procedure. The success rate of the procedure was discussed. Success of the procedure in the short-term does not necessarily guarantee that long-term success will be maintained. Suitable follow up will need to be maintained. The patient showed understanding of the discussion as well as the typical recovery time, and the outpatient nature of this procedure. Opportunity was given for questions. Repeat-back protocol used to confirm understanding. They wish to proceed with right ESWL Patient Instructions: Imaging studies, laboratory and physical exam results were discussed and reviewed in detail. No major barriers to patient understanding were identified. An opportunity to ask questions regarding the treatment plan was provided. All questions were answered. The patient expressed understanding and agreement with the above treatment plan. The patient is aware they should contact our office by phone for worsening of their current condition or the appearance of new urologic symptoms. Compliance is encouraged with any medications and followup testing that is ordered. It is a privilege to participate in the urologic care of your patient. If you have any questions or concerns regarding treatment for the above conditions, or other urologic issues, please do not hesitate to contact me. The office telephone contact is [phone]. This note is constructed using voice recognition software. While every effort has been made to ensure accuracy marketing performance analyst errors may have been included. Yours sincerely, Dr Blayne Srinivasan MD, [facility] - Urology Providers of Expert, Compassionate Care for the Genitourinary System Quality Reporting (2020) Adult ([facility] 138/05/21/68) Smoking risk assessment performed?: Yes Patient Tobacco Use Status: Current everyday Tobacco user Telehealth Telehealth Location of provider rendering services: practice address Location of patient: address on file Patient Identification confirmed using: Name, : Yes Telehealth method: voice only Patient verbally consented to treatment: Yes Patient verbally consented to billing insurance company: Yes Patient informed of any privacy concerns related to visit: Yes Coding Level of Care Code Tele Est Pt Level 4 (25113) Diagnoses Bilateral nephrolithiasis N20.0
== END 2023-06-10 16:06 | disposition home or self-care (01) ==
LOC: HO.HUSH 14:40
PROVIDERS: PCP Internal Medicine Geriatric Medicine; Visit Provider Urology
DX: N20.0 Calculus of kidney (principal)
CPT/HCPCS: 99442

== ENCOUNTER → 2023-06-10 14:40 | Outpatient (BNVA) | payer OTHER, SELFPAY | PROVIDERS: PCP Internal Medicine Geriatric Medicine; Visit Provider Urology ==

== ENCOUNTER 2023-06-17 06:59 | Day surgery (SDC) | payer OTHER, SELFPAY ==
--- NOTE | 2023-06-16 09:50 | HO.ANESPROP2 ---
Documented by User: Demetria Potter NP 06/16/23 10:02 HPI - Anesthesia Eval Consult details Narrative: 62yo F for Right Lithotripsy ESW Follows [facility] cardiology. Cardiac cleared at [facility] preop clinic. Follows [facility] [place]. Optimized for procedure. Anesthesia Pre-Procedure Meds Is the patient on any of the following meds?: Dulaglutide (Trulicity) PMFSH Active Problems Active Problems: All Active Problems (Updated 06/16/23 @ 07:38 by Soledad Rodriguez RN) Pre-op chest exam (Acute) Positive blood culture (Acute) Right radial head fracture (Acute) Fracture of third metatarsal bone of right foot (Acute) Chronic painful diabetic neuropathy (Acute) Microscopic hematuria (Acute) Bilateral nephrolithiasis (Acute) Hyperglycemia (Acute) Diabetes (Acute) COVID-19 (Acute) Pneumonia (Acute) Increased anion gap metabolic acidosis (Acute) Tobacco abuse (Acute) CAD (coronary artery disease) (Acute) CHF (congestive heart failure) (Acute) Sacroiliac joint dysfunction of left side (Acute) Lumbar spondylosis (Acute) Lumbar radiculopathy (Acute) Lumbar post-laminectomy syndrome (Acute) Muscle spasm of back (Acute) MCKAY (obstructive sleep apnea) (Acute) Cough (Acute) Hypothyroidism, postsurgical (Acute) Tubular adenoma (Acute) Irritable bowel syndrome (Acute) Hyperthyroidism (Acute) Smoker (Acute) COPD exacerbation (Acute) Hypoxia (Acute) Lesion of bronchus (Acute) Tracheal anomaly (Acute) Multinodular goiter (Acute) Vitamin D deficiency (Acute) Atelectasis (Acute) Subclinical hyperthyroidism (Acute) Goiter (Acute) Pneumonia (Acute) Pulmonary nodules (Acute) COPD (chronic obstructive pulmonary disease) (Acute) Past Medical History Medical History History of back pain History of neuropathy Smokes tobacco daily Opioid dependence Nephrolithiasis Hyperlipidemia HTN (hypertension) Cardiomyopathy Myocardial infarction CAD (coronary artery disease) Cough Hypothyroidism, postsurgical Tubular adenoma Diabetes MCKAY (obstructive sleep apnea) Irritable bowel syndrome Hyperthyroidism Polycythemia Smoker Hypoxia COPD exacerbation Lesion of bronchus Tracheal anomaly Multinodular goiter Vitamin D deficiency Atelectasis Subclinical hyperthyroidism Goiter Pneumonia Pulmonary nodules COPD (chronic obstructive pulmonary disease) Family History Family History Father No problems noted. Mother No problems noted. Paternal Aunt Diabetes Family history of problems with anesthesia: No Surgical History Surgical History History of coronary artery stent placement Hx of thyroidectomy History of thyroid surgery History of esophagogastroduodenoscopy (EGD) Hx of colonoscopy History of back surgery History of ureterostomy S/P lumpectomy, right breast History of cholecystectomy History of tonsillectomy History of Problems with Anesthesia: No Social History Social History Household Members: Spouse Housing: House Do you presently have visiting nurse or other home services: No Alcohol intake: never Comment: pt refused bed alarm/camera Patient Tobacco Use Status: Current everyday Tobacco user Tobacco use type: Cigarette Cigarette Packs Per Day: 0.5 Cigarettes Per Day: 6 e-Cigarette/Vaping Use: Never Used Second Hand Smoke Exposure: Yes Use of substances other than those prescribed or required for medical reasons: Yes Substance Use Type: Marijuana Substance Use Type Other:: cbd smoked Are you DNR?: No Advance Directives: No Advance Directives Information Provided: Yes Advance Directives Date on File: 01/24/21 service: No Current occupational status: disabled Meds Allergies Allergy/AdvReac Type Severity Reaction Status Date / Time HANK Inhibitors Allergy Severe ANGIO Verified 06/17/23 08:18 [HANK INHIBITORS] EDEMA enalapril Allergy Severe Anaphylaxis Verified 06/17/23 08:18 erythromycin base Allergy Severe HIVES ALL Verified 06/17/23 08:18 [ERYTHROMYCIN BASE] OVER hydromorphone [From DILAUDID] AdvReac Severe TINGLING, Verified 06/17/23 08:18 PT DOES NOT LIKE THE FEELING MED GIVES HER Home Medications Medication Instructions Recorded Confirmed Last Taken Type aspirin 81 mg tablet,delayed 81 mg PO BEDTIME 12/24/19 06/17/23 06/10/23 History release atorvastatin 80 mg tablet 80 mg PO BEDTIME 12/24/19 06/17/23 01/29/23 History carvedilol 6.25 mg tablet 6.25 mg PO BID 12/24/19 06/17/23 06/17/23 06:00 History cetirizine 10 mg tablet 10 mg PO DAILY 12/24/19 06/17/23 01/29/23 History montelukast 10 mg tablet 10 mg PO BEDTIME 12/24/19 06/17/23 01/29/23 History omeprazole 20 mg capsule,delayed 20 mg PO BID@0630,1630 12/24/19 06/17/23 01/29/23 History release ipratropium 20 mcg-albuterol 100 2 puff inhalation BID 01/02/20 06/17/23 01/29/23 History mcg/actuation mist for inhalation (Combivent Respimat) docusate sodium 100 mg capsule 1 cap PO BID Constipation 01/24/21 06/17/23 01/29/23 History blood sugar diagnostic (FreeStyle #10 ea 10/07/21 06/17/23 10/20/22 09:00 History Lite Strips) lancets 33 gauge (TRUEplus Lancets) #100 ea 10/07/21 06/17/23 10/20/22 09:00 History naloxone 4 mg/actuation nasal spray 1 spray intranasal ONCE PRN Opioid 10/07/21 06/17/23 01/29/23 History Overdose insulin lispro 100 unit/mL 1 sliding scale dose subcut TIDAC 11/02/21 06/17/23 01/29/23 History subcutaneous pen (Humalog KwikPen (U-100) Insulin) oxycodone-acetaminophen 7.5 mg-325 1 tab PO Q6H severe pain 06/23/22 06/17/23 06/17/23 04:00 History mg tablet fluticasone propionate 50 1 spray intranasal DAILY PRN 07/25/22 06/17/23 Unknown History mcg/actuation nasal Congestion spray,suspension dulaglutide 1.5 mg/0.5 mL 1.5 mg subcut REESE@0900 08/06/22 06/17/23 06/10/23 History subcutaneous pen injector (Trulicity) calcium citrate 315 mg 2 tab PO QID 01/30/23 06/17/23 01/29/23 History calcium-vitamin D3 6.25 mcg (250 unit) tablet ipratropium 0.5 mg-albuterol 3 mg 3 ml inhalation QID PRN Shortness 01/30/23 06/17/23 06/17/23 06:00 History (2.5 mg base)/3 mL nebulization Of Breath Or Wheezing soln sennosides 8.6 mg tablet (senna) 17.2 mg PO BEDTIME PRN Constipation 01/30/23 06/17/23 01/29/23 History nebulizers 06/03/23 06/17/23 Unknown History methocarbamol 750 mg tablet 750 mg PO DAILY PRN for muscle 06/16/23 06/17/23 Unknown History spasm roflumilast 500 mcg tablet 250 mcg PO DAILY 06/16/23 06/17/23 06/17/23 06:00 History Exam Pertinent Lab Results Pertinent Lab Results: Laboratory Tests 01/31/23 01/31/23 02/25/23 04:57 04:57 15:25 WBC 11.7 H Hgb 15.2 Hct 46.6 Plt Count 239 Sodium 140 Potassium 3.8 Chloride 102 Carbon Dioxide 25 BUN 20 H Creatinine 0.87 Narrative Narrative: EKG 01/2023 Vent. Rate : 094 BPM Atrial Rate : 094 BPM P-R Int : 140 ms QRS Dur : 092 ms QT Int : 364 ms P-R-T Axes : 070 -25 025 degrees QTc Int : 455 ms Normal sinus rhythm Incomplete right bundle branch block Abnormal ECG When compared with ECG of 20-OCT-2022 22:54, Questionable change in initial forces of Inferior leads ECHO 10/2022 1. LV size nml. LV wall thickness nml. LV systolic function mildly depressed. LVEF 45%. basal inf and inferoseptal sheppard are akinetic. LV filling pressures are elevated. Grade 2 mod diastolic dysfunction 2.RV nml in size and function. Accurate pulmo artery pressure couldnt be obtained 3. Biatrial size is nml 4. No hemodynamically significant valve disease No change c/w prior Assessment and Plan Assessment Anesthesia Assessment: Chart Reviewed Final Anesthetic Review Family History of Problems with Anesthesia: No History of Problems with Anesthesia: No Documented by User: Kely Mar MD 06/17/23 08:53 HPI - Anesthesia Eval Anesthesia Pre-Procedure Meds If Yes to any meds - educate patient: Pt education - increased risk of aspiration PMFSH Past Medical History Medical History History of back pain History of neuropathy Smokes tobacco daily Opioid dependence Nephrolithiasis Hyperlipidemia HTN (hypertension) Cardiomyopathy Myocardial infarction CAD (coronary artery disease) Cough Hypothyroidism, postsurgical Tubular adenoma Diabetes MCKAY (obstructive sleep apnea) Irritable bowel syndrome Hyperthyroidism Polycythemia Smoker Hypoxia COPD exacerbation Lesion of bronchus Tracheal anomaly Multinodular goiter Vitamin D deficiency Atelectasis Subclinical hyperthyroidism Goiter Pneumonia Pulmonary nodules COPD (chronic obstructive pulmonary disease) Family History Family History Father No problems noted. Mother No problems noted. Paternal Aunt Diabetes Surgical History Surgical History History of coronary artery stent placement Hx of thyroidectomy History of thyroid surgery History of esophagogastroduodenoscopy (EGD) Hx of colonoscopy History of back surgery History of ureterostomy S/P lumpectomy, right breast History of cholecystectomy History of tonsillectomy Social History Social History Household Members: Spouse Housing: House Do you presently have visiting nurse or other home services: No Alcohol intake: never Comment: pt refused bed alarm/camera Patient Tobacco Use Status: Current everyday Tobacco user Tobacco use type: Cigarette Cigarette Packs Per Day: 0.5 Cigarettes Per Day: 6 e-Cigarette/Vaping Use: Never Used Second Hand Smoke Exposure: Yes Use of substances other than those prescribed or required for medical reasons: Yes Substance Use Type: Marijuana Substance Use Type Other:: cbd smoked Are you DNR?: No Advance Directives: No Advance Directives Information Provided: Yes Advance Directives Date on File: 01/24/21 service: No Current occupational status: disabled Meds Allergies Allergy/AdvReac Type Severity Reaction Status Date / Time HANK Inhibitors Allergy Severe ANGIO Verified 06/17/23 08:18 [HANK INHIBITORS] EDEMA enalapril Allergy Severe Anaphylaxis Verified 06/17/23 08:18 erythromycin base Allergy Severe HIVES ALL Verified 06/17/23 08:18 [ERYTHROMYCIN BASE] OVER hydromorphone [From DILAUDID] AdvReac Severe TINGLING, Verified 06/17/23 08:18 PT DOES NOT LIKE THE FEELING MED GIVES HER Home Medications Medication Instructions Recorded Confirmed Last Taken Type aspirin 81 mg tablet,delayed 81 mg PO BEDTIME 12/24/19 06/17/23 06/10/23 History release atorvastatin 80 mg tablet 80 mg PO BEDTIME 12/24/19 06/17/23 01/29/23 History carvedilol 6.25 mg tablet 6.25 mg PO BID 12/24/19 06/17/23 06/17/23 06:00 History cetirizine 10 mg tablet 10 mg PO DAILY 12/24/19 06/17/23 01/29/23 History montelukast 10 mg tablet 10 mg PO BEDTIME 12/24/19 06/17/23 01/29/23 History omeprazole 20 mg capsule,delayed 20 mg PO BID@0630,1630 12/24/19 06/17/23 01/29/23 History release ipratropium 20 mcg-albuterol 100 2 puff inhalation BID 01/02/20 06/17/23 01/29/23 History mcg/actuation mist for inhalation (Combivent Respimat) docusate sodium 100 mg capsule 1 cap PO BID Constipation 01/24/21 06/17/23 01/29/23 History blood sugar diagnostic (FreeStyle #10 ea 10/07/21 06/17/23 10/20/22 09:00 History Lite Strips) lancets 33 gauge (TRUEplus Lancets) #100 ea 10/07/21 06/17/23 10/20/22 09:00 History naloxone 4 mg/actuation nasal spray 1 spray intranasal ONCE PRN Opioid 10/07/21 06/17/23 01/29/23 History Overdose insulin lispro 100 unit/mL 1 sliding scale dose subcut TIDAC 11/02/21 06/17/23 01/29/23 History subcutaneous pen (Humalog KwikPen (U-100) Insulin) oxycodone-acetaminophen 7.5 mg-325 1 tab PO Q6H severe pain 06/23/22 06/17/23 06/17/23 04:00 History mg tablet fluticasone propionate 50 1 spray intranasal DAILY PRN 07/25/22 06/17/23 Unknown History mcg/actuation nasal Congestion spray,suspension dulaglutide 1.5 mg/0.5 mL 1.5 mg subcut REESE@0900 08/06/22 06/17/23 06/10/23 History subcutaneous pen injector (Trulicity) calcium citrate 315 mg 2 tab PO QID 01/30/23 06/17/23 01/29/23 History calcium-vitamin D3 6.25 mcg (250 unit) tablet ipratropium 0.5 mg-albuterol 3 mg 3 ml inhalation QID PRN Shortness 01/30/23 06/17/23 06/17/23 06:00 History (2.5 mg base)/3 mL nebulization Of Breath Or Wheezing soln sennosides 8.6 mg tablet (senna) 17.2 mg PO BEDTIME PRN Constipation 01/30/23 06/17/23 01/29/23 History nebulizers 06/03/23 06/17/23 Unknown History methocarbamol 750 mg tablet 750 mg PO DAILY PRN for muscle 06/16/23 06/17/23 Unknown History spasm roflumilast 500 mcg tablet 250 mcg PO DAILY 06/16/23 06/17/23 06/17/23 06:00 History Exam Airway Mallampati Class: II TM Dist: >3cm Neck ROM: Full Loose/Missing/Broken Teeth: Yes, Upper and Lower Heart: RRR Lungs: CTA Assessment and Plan Final Anesthetic Review NPO: Yes ASA Class: III Final Preanesthetic Review: Meds/Allgs Chart Reviewed, Consent Obtained/Reviewed and Anes Risks/Benef Reviewed Patient Risk: Intermediate Procedure Risk: Low Anesthetic Plan Anesthetic Plan: MAC: Disposition: Standard PACU
--- NOTE | ~2023-06-17 | XR_ITS ---
EXAMINATION: XR ABDOMEN KUB CLINICAL INDICATION: Right renal stone follow-up COMPARISON: CT abdomen 03/18/2023 TECHNIQUE: AP view of the abdomen. FINDINGS: Moderate stool burden obscures detail. Bowel gas pattern normal. No obstruction or free air or mass effect. There is degenerative change in the lower lumbar spine. There is a ill-defined calcification or calcific density of 7mm overlying the expected region of the lower pole of the right kidney. No change from 03/18/2023 A few tiny pelvic phleboliths incidentally are seen. XR/XR KUB IMPRESSION: Nephrolith right lower pole unchanged.
[2023-06-17 08:30] VITALS: BP 127/79; PULSE 77; RESP 15; TEMP 36.2; O2SAT 93; BMI 29.1
[2023-06-17] MEDS: Lactated Ringers 1,000 ML 999 ML IV (08:42)
[2023-06-17] MEDS: Acetaminophen 1,000 MG/100 ML PIGGYBACK 400 MG IV (08:42)
--- NOTE | 2023-06-17 08:43 | MHC.SHP ---
Pre-Procedural Eval Section A - 24 Hr Update-Section A only Date of Service: 06/17/23 The patient is an INPATIENT: No Changes since office visit: No Cold of Flu in the past 2 weeks, No New Medical Problems, No Changes in Medication and No Patient answered all questions The patient has been examined within 24 hours of the surgical procedure. The History & Physical has been completed within 30 days and I have reviewed it.: Yes Section B - Complete if H&P > 30 days Chief Complaint: Calculus of kidney Details of Present Illness: right 8mm Relevant Social History: Tobacco Use Present Medications: see Short Stay Collaborative assessment History of Previous Operations: No relevant previous surgery Allergies: Allergies Allergy/AdvReac Type Severity Reaction Status Date / Time HANK Inhibitors Allergy Severe ANGIO Verified 06/17/23 08:18 [HANK INHIBITORS] EDEMA enalapril Allergy Severe Anaphylaxis Verified 06/17/23 08:18 erythromycin base Allergy Severe HIVES ALL Verified 06/17/23 08:18 [ERYTHROMYCIN BASE] OVER hydromorphone [From DILAUDID] AdvReac Severe TINGLING, Verified 06/17/23 08:18 PT DOES NOT LIKE THE FEELING MED GIVES HER Review of Systems Sugical H&P ROS: Negative: Constitution, Cardiovascular, Respiratory, Neurological, Psychiatric, Hem-Onc, Allergic/Immunologic, Gastrointestinal, Genitourinary, Musculoskeletal, Integumentary, Endocrine and Eyes/Ears/Nose/Throat Exam Surgical H&P Exam: Normal: HEENT, Normal: Heart, Normal: Lungs, Normal: Extremities, Normal: Abdomen, Normal: Skin and Normal: Neurological Plan Diagnosis/Plan: Unchanged (right ESWL 8mm) I have reviewed the history and physical and performed a pertinent physical examination on my patient. No changes have occurred unless specified. Time Spent With Patient Time: Total time managing care of this patient today ____ minutes.
[2023-06-17 08:51] LABS: Glucose, Whole Blood 159 mg/dL (60-115)
--- NOTE | 2023-06-17 09:46 | W.PM.OPN ---
Operative Note Operative Note Date of Service: 06/17/23 Narrative: PreOperative Diagnosis: right Renal stones Post Operative Diagnosis: right Renal stones Procedure: right ESWL Surgeon: Dr Blayne Srinivasan Anesthesia: mac/sedation Indications for procedure: The patient understands ESWL may be a staged procedure and subsequent intervention may be required based on imaging after ESWL. Quoted stone clearance rates for a solitary procedure are in the 70-80% range based primarily on stone location. They also understand there is a risk of bleeding to the kidney, infection, damage to adjacent organs, and stone migration following the procedure. - Imaging 8 mm right renal Procedure: After informed consent was verified the patient was brought to the operating room and placed in a supine position. Anesthesia was performed per protocol. Safety pause time-out was performed. Imaging was displayed in the room and laterality confirmed. ESWL was performed. The 1st 500 shocks were performed at 60 hertz. These were performed with increasing power. Once maximum power was reached the rate was increased to 180 hertz. A total of 2500 shocks were given. Targeted imaging with ultrasound/fluoroscopy showed stone smudging suggestive of disintegration. The patient tolerated the procedure well and was transferred to the recovery area upon completion. Post procedure imaging will be organized. There was no evidence for flank discoloration.
[2023-06-17 09:57] VITALS: BP 124/71; PULSE 78; RESP 18; TEMP 37.5; O2SAT 99
[2023-06-17] MEDS: Phenazopyridine HCL 100 MG TABLET PO (10:05)
[2023-06-17 10:12] VITALS: BP 147/87; PULSE 73; RESP 18; TEMP 36.2; O2SAT 97
== END 2023-06-17 10:20 | disposition home or self-care (01) ==
PROVIDERS: PCP Internal Medicine Geriatric Medicine; Visit Provider Urology
PROC: (CPT 50590; principal; 2023-06-17 09:10)
DX: N20.0 Calculus of kidney (principal); Z87.442 Personal history of urinary calculi; I10 Essential (primary) hypertension; J44.9 Chronic obstructive pulmonary disease, unspecified; R91.8 Other nonspecific abnormal finding of lung field; G47.33 Obstructive sleep apnea (adult) (pediatric); E55.9 Vitamin D deficiency, unspecified; E11.9 Type 2 diabetes mellitus without complications; Z79.4 Long term (current) use of insulin; Z79.85 Long-term (current) use of injectable non-insulin antidiabetic drugs; Z79.899 Other long term (current) drug therapy; Z79.82 Long term (current) use of aspirin; Z88.1 Allergy status to other antibiotic agents; Z88.8 Allergy status to other drugs, medicaments and biological substances; Z98.890 Other specified postprocedural states; F17.210 Nicotine dependence, cigarettes, uncomplicated
CPT/HCPCS: 50590; 74018; 82947; J0131; J1940; J2250; J2704; J3010

== ENCOUNTER → 2023-06-17 06:59 | Outpatient (BNV) | payer OTHER, SELFPAY | PROVIDERS: PCP Internal Medicine Geriatric Medicine; Visit Provider Urology | DX: N20.0 Calculus of kidney (principal) | CPT/HCPCS: 50590 ==

== ENCOUNTER 2023-06-19 11:08 | Outpatient (REF) | payer OTHER, SELFPAY ==
[2023-06-19 13:16] LABS: MANUAL DIFF FLAG NO
[2023-06-19 13:18] LABS: Basophils Absolute Auto 0.1 X10*3/uL (0.0-0.2); Basophils Percent Auto 1.1 % (0-2); Eosinophils Absolute Auto 0.3 X10*3/uL (0.0-0.4); Eosinophils Percent Auto 2.5 % (0-4); Hematocrit 48.1 % (37.0-47.0); Hemoglobin 15.7 g/dl (12.0-16.0); Imm Gran Abs Auto 0.07 X10*3/uL (0.00-0.03); Imm Gran Pct Auto 0.6 % (0.0-0.4); Lymphocytes Percent Auto 32.9 % (20-40); Mean Corpuscular HGB Conc 32.6 g/dl (31.0-35.0); Mean Corpuscular Hemoglobin 29.8 pg (27.0-33.0); Mean Corpuscular Volume 91.3 fL (80.0-98.0); Mean Platelet Volume 10.6 fL (9.4-12.3); Monocytes Absolute Auto 1.2 X10*3/uL (0.1-1.2); Monocytes Percent Auto 9.5 % (2-11); Neutrophils Absolute Auto 6.6 x10*3/uL (2.0-8.3); Neutrophils Percent Auto 53.4 % (45-73); Platelet Count 209 X10*3/uL (160-400); Red Blood Count 5.27 X10*6/uL (4.20-5.50); Red Cell Distribution Width 13.9 % (11.0-16.0); White Blood Count 12.3 X10*3/uL (4.8-10.8)
[2023-06-19 13:39] LABS: Anion Gap 13 (12-20); Blood Urea Nitrogen 11 mg/dL (9-16); Carbon Dioxide 30 mmol/L (22-29); Chloride 106 mmol/L (96-108); Estimated Glomerular Filt Rate > 60; Glucose Random 182 mg/dL (60-115); Potassium 3.9 mmol/L (3.3-5.1); Sodium 145 mmol/L (135-145)
[2023-06-19 13:55] LABS: TSH reflex Free T4 8.92 uIU/mL (0.32-4.0)
[2023-06-19 14:33] LABS: Free T4 (Free Thyroxine) 1.09 ng/dL (0.71-1.85)
== END 2023-06-19 11:09 | disposition home or self-care (01) ==
LOC: HO.HHCL 11:08
PROVIDERS: Visit Provider Internal Medicine Geriatric Medicine
DX: R53.83 Other fatigue (principal); E89.0 Postprocedural hypothyroidism
CPT/HCPCS: 36415; 80048; 84439; 84443; 85025

== ENCOUNTER 2023-07-15 09:25 | Outpatient (REF) | payer OTHER, SELFPAY ==
--- NOTE | ~2023-07-15 | US_ITS ---
EXAMINATION: US RETROPERITONEAL LIMITED (RENAL ONLY) CLINICAL INFORMATION: Calculus of kidney. COMPARISON: X-ray abdomen KUB 06/17/2023. CT kidney stone 03/18/2023. Renal ultrasound 01/23/2023 and 09/26/2014. TECHNIQUE: Real-time imaging of the kidneys. Limited visualization due to bowel gas. FINDINGS: RIGHT KIDNEY: 11.5 x 3.8 x 4.5 cm (SAG x AP x TRV). Mild hydronephrosis. Several right renal calculi, largest lower pole 1.5 cm. Renal cortical thickness is normal. Limited visualization. LEFT KIDNEY: 11.2 x 4.5 x 5.3 cm (SAG x AP x TRV). No hydronephrosis. Multiple renal calculi, largest midpole 6 mm. Renal cortical thickness is normal. Limited visualization. US/US renal BI IMPRESSION: 1. Mild right hydronephrosis. 2. Bilateral renal calculi.
== END 2023-07-15 09:26 | disposition home or self-care (01) ==
LOC: HO.US 09:25
PROVIDERS: PCP Internal Medicine Geriatric Medicine; Visit Provider Urology
DX: N20.0 Calculus of kidney (principal); R31.29 Other microscopic hematuria
CPT/HCPCS: 76775

== ENCOUNTER 2023-07-18 03:23 | Emergency (ER) | payer OTHER, SELFPAY ==
--- NOTE | 2023-07-18 | ECG_ITS ---
Test Reason : CP Blood Pressure : / mmHG Vent. Rate : 087 BPM Atrial Rate : 087 BPM P-R Int : 144 ms QRS Dur : 092 ms QT Int : 366 ms P-R-T Axes : 073 -35 020 degrees QTc Int : 440 ms Normal sinus rhythm Left axis deviation Incomplete right bundle branch block Abnormal ECG When compared with ECG of 30-JAN-2023 07:17, Referred By: Generic ED Physician Electronically Signed By:CHAPIN ELDRIDGE
--- NOTE | ~2023-07-18 | XR_ITS ---
EXAMINATION: XR CHEST CLINICAL INFORMATION: Chest pain COMPARISON: 06/09/2023 TECHNIQUE: Frontal view of the chest was obtained. FINDINGS: There is a redemonstrated region of opacity adjacent to the medial heart border which appears well marginated, suspicious for a region of atelectasis in the right middle lobe when compared to prior. No additional acute consolidation is seen. No evidence of pneumothorax, pleural effusion, or pulmonary edema. The cardiomediastinal contour is unremarkable. No acute osseous findings are seen. XR/XR chest 1V IMPRESSION: Redemonstrated region of opacity adjacent to the medial heart border, suspicious for a region of atelectasis in the right middle lobe when compared to prior. No additional acute findings identified.
[2023-07-18 03:27] VITALS: BP 165/77; PULSE 85; RESP 22; TEMP 36.7; O2SAT 94; BMI 62.4
--- NOTE | 2023-07-18 03:39 | MHC.EDTECH ---
Brought into triage area,EKG taken per order and signed by provider,labs,sars/flu/rsv obtained and sent to lab.Patient brought to ED room 9 per charge nurse.
[2023-07-18 03:46] LABS: MANUAL DIFF FLAG NO
[2023-07-18 03:50] LABS: Basophils Absolute Auto 0.1 X10*3/uL (0.0-0.2); Basophils Percent Auto 0.9 % (0-2); Eosinophils Absolute Auto 0.4 X10*3/uL (0.0-0.4); Hematocrit 47.3 % (37.0-47.0); Hemoglobin 15.8 g/dl (12.0-16.0); Imm Gran Pct Auto 0.8 % (0.0-0.4); Lymphocytes Absolute Auto 2.4 X10*3/uL (1.2-4.9); Mean Corpuscular HGB Conc 33.4 g/dl (31.0-35.0); Mean Corpuscular Volume 89.9 fL (80.0-98.0); Mean Platelet Volume 10.2 fL (9.4-12.3); Monocytes Absolute Auto 0.6 X10*3/uL (0.1-1.2); Monocytes Percent Auto 4.9 % (2-11); Neutrophils Absolute Auto 8.9 x10*3/uL (2.0-8.3); Neutrophils Percent Auto 71.4 % (45-73); Platelet Count 220 X10*3/uL (160-400); Red Blood Count 5.26 X10*6/uL (4.20-5.50); Red Cell Distribution Width 14.1 % (11.0-16.0); White Blood Count 12.5 X10*3/uL (4.8-10.8)
[2023-07-18 04:04] LABS: Alanine Aminotransferase 27 U/L (0-31); Alkaline Phosphatase 58 U/L (39-117); Anion Gap 17 (12-20); Aspartate Amino Transferase 25 U/L (5-31); Bilirubin Total 0.6 mg/dL (0.0-1.0); Blood Urea Nitrogen 18 mg/dL (9-16); Calcium 9.7 mg/dL (8.4-10.2); Carbon Dioxide 25 mmol/L (22-29); Chloride 107 mmol/L (96-108); Creatinine Clr Calc Pharmacy 99.9; Estimated Glomerular Filt Rate > 60; Glucose Random 248 mg/dL (60-115); Potassium 4.2 mmol/L (3.3-5.1); Sodium 145 mmol/L (135-145); Total Protein 6.7 g/dL (6.5-8.0)
[2023-07-18 04:12] LABS: Troponin-I High Sensitivity 4.4 ng/L (<3.5-17.0)
[2023-07-18 04:26] LABS: Influenza A PCR NEGATIVE (Negative); Influenza B PCR NEGATIVE (Negative); Resp Syncy Virus RNA Qual PCR NEGATIVE (Negative); SARS COV2 PCR INHOUSE NEGATIVE (Negative)
--- NOTE | 2023-07-18 04:49 | ED_ITS ---
HPI - Chest Pain General Chief Complaint: Chest Pain Stated Complaint: Chest pain Time Seen by Provider: 07/18/23 04:48 Source: patient Mode of arrival: ambulatory Limitations: no limitations History of Present Illness HPI narrative: 62-year-old female with a history of coronary artery disease, myocardial infarction 6 years prior with a stent, COPD, congestive heart failure, obstructive sleep apnea, hyperthyroidism who presents emergency department for evaluation of neck, back, chest and left arm pain. Patient states that she woke up on 07/17/2023 at 04:00 hours with left-sided neck pain. She states that her neck was stiff and the pain eventually travel to her left shoulder and left shoulder blade. She states that this pain was constant and at 01:30 hours this morning the pain moved to her left chest and down her left arm. She states that the pain is been constant, she describes it as a dull achiness. The pain is worse if she lies down flat or moves. She took Percocet an aspirin at home with no relief of her pain. She states she has COPD and has chronic shortness of breath and chronic cough. She also has chronic lower back pain and had an L2-L3 disc surgery. She takes Percocet 325/7.5 mg on a regular basis for pain and this did not help her pain this evening. Related Data Home Medications ?Medication ?Instructions ?Recorded ?Confirmed aspirin 81 mg tablet,delayed 81 mg PO BEDTIME 12/24/19 06/17/23 release atorvastatin 80 mg tablet 80 mg PO BEDTIME 12/24/19 06/17/23 carvedilol 6.25 mg tablet 6.25 mg PO BID 12/24/19 06/17/23 cetirizine 10 mg tablet 10 mg PO DAILY 12/24/19 06/17/23 montelukast 10 mg tablet 10 mg PO BEDTIME 12/24/19 06/17/23 omeprazole 20 mg capsule,delayed 20 mg PO BID@0630,1630 12/24/19 06/17/23 release ipratropium 20 mcg-albuterol 100 2 puff inhalation BID 01/02/20 06/17/23 mcg/actuation mist for inhalation (Combivent Respimat) docusate sodium 100 mg capsule 1 cap PO BID Constipation 01/24/21 06/17/23 blood sugar diagnostic (FreeStyle #10 ea 10/07/21 06/17/23 Lite Strips) lancets 33 gauge (TRUEplus Lancets) #100 ea 10/07/21 06/17/23 naloxone 4 mg/actuation nasal spray 1 spray intranasal ONCE PRN Opioid 10/07/21 06/17/23 Overdose insulin lispro 100 unit/mL 1 sliding scale dose subcut TIDAC 11/02/21 06/17/23 subcutaneous pen (Humalog KwikPen (U-100) Insulin) oxycodone-acetaminophen 7.5 mg-325 1 tab PO Q6H severe pain 06/23/22 06/17/23 mg tablet fluticasone propionate 50 1 spray intranasal DAILY PRN 07/25/22 06/17/23 mcg/actuation nasal Congestion spray,suspension dulaglutide 1.5 mg/0.5 mL 1.5 mg subcut REESE@0900 08/06/22 06/17/23 subcutaneous pen injector (Trulicity) calcium citrate 315 mg 2 tab PO QID 01/30/23 06/17/23 calcium-vitamin D3 6.25 mcg (250 unit) tablet ipratropium 0.5 mg-albuterol 3 mg 3 ml inhalation QID PRN Shortness 01/30/23 06/17/23 (2.5 mg base)/3 mL nebulization Of Breath Or Wheezing soln sennosides 8.6 mg tablet (senna) 17.2 mg PO BEDTIME PRN Constipation 01/30/23 06/17/23 nebulizers 06/03/23 06/17/23 methocarbamol 750 mg tablet 750 mg PO DAILY PRN for muscle 06/16/23 06/17/23 spasm roflumilast 500 mcg tablet 250 mcg PO DAILY 06/16/23 06/17/23 Previous Rx's ?Medication ?Instructions ?Recorded insulin glargine 100 unit/mL (3 30 unit (0.3 mL) subcut BID #15 mL 02/12/22 mL) subcutaneous pen (Lantus Solostar U-100 Insulin) pyridoxine (vitamin B6) 100 mg 100 mg PO DAILY 90 days #90 tabs 08/06/22 tablet pregabalin 75 mg capsule 75 mg PO BID pain 30 days #60 caps 02/26/23 levothyroxine 112 mcg tablet 112 mcg PO DAILY #30 tabs 04/15/23 cholecalciferol (vitamin D3) 50 50 mcg PO DAILY #90 caps 05/21/23 mcg (2,000 unit) capsule (Vitamin D3) fluticasone fur. 100 mcg-umeclid 1 ea inhalation DAILY #1 ea 06/15/23 62.5 mcg-vilant 25 mcg inhalat.powder (Trelegy Ellipta) prednisone 5 mg tablet 5 mg PO DAILY #30 tabs 06/15/23 oxycodone-acetaminophen 5 mg-325 1 tab PO Q4H PRN pain (scale score 06/17/23 mg tablet 4-6) 7 days #8 tabs phenazopyridine 100 mg tablet 100 mg PO TID PRN Spasm 4 days #12 06/17/23 (Pyridium) tabs tamsulosin 0.4 mg capsule 0.4 mg PO BEDTIME 14 days #14 caps 06/17/23 methocarbamol 1,000 mg tablet 1,000 mg PO TID 7 days #21 tabs 07/18/23 Allergies Allergy/AdvReac Type Severity Reaction Status Date / Time HANK Inhibitors Allergy Severe ANGIO Verified 07/18/23 03:28 [HANK INHIBITORS] EDEMA enalapril Allergy Severe Anaphylaxis Verified 07/18/23 03:28 erythromycin base Allergy Severe HIVES ALL Verified 07/18/23 03:28 [ERYTHROMYCIN BASE] OVER hydromorphone [From DILAUDID] AdvReac Severe TINGLING, Verified 07/18/23 03:28 PT DOES NOT LIKE THE FEELING MED GIVES HER Review of Systems 2 Review of Systems: Yes all other systems are reviewed and are negative [facility] Past Medical History [facility] Narrative: Social history: The patient smokes cigarettes. She denies alcohol and drug use. Medical History History of back pain History of neuropathy Smokes tobacco daily Opioid dependence Nephrolithiasis Hyperlipidemia HTN (hypertension) Cardiomyopathy Myocardial infarction CAD (coronary artery disease) Cough Hypothyroidism, postsurgical Tubular adenoma Diabetes MCKAY (obstructive sleep apnea) Irritable bowel syndrome Hyperthyroidism Polycythemia Smoker Hypoxia COPD exacerbation Lesion of bronchus Tracheal anomaly Multinodular goiter Vitamin D deficiency Atelectasis Subclinical hyperthyroidism Goiter Pneumonia Pulmonary nodules COPD (chronic obstructive pulmonary disease) Surgical History History of coronary artery stent placement Hx of thyroidectomy History of thyroid surgery History of esophagogastroduodenoscopy (EGD) Hx of colonoscopy History of back surgery History of ureterostomy S/P lumpectomy, right breast History of cholecystectomy History of tonsillectomy Family History Family History Father No problems noted. Mother No problems noted. Paternal Aunt Diabetes Social History Social History Household Members: Spouse Housing: House Do you presently have visiting nurse or other home services: No Alcohol intake: never Comment: pt refused bed alarm/camera Patient Tobacco Use Status: Current everyday Tobacco user Tobacco use type: Cigarette Cigarette Packs Per Day: 0.5 Cigarettes Per Day: 6 Smoked in Last 30 Days: Yes e-Cigarette/Vaping Use: Never Used Second Hand Smoke Exposure: Yes Use of substances other than those prescribed or required for medical reasons: No Substance Use Type: Marijuana Advance Directives: Yes Advance Directives on File: Yes Advance Directives Date on File: 01/24/21 Patient : No service: No Current occupational status: disabled Physical Exam 2 Vital Signs: Vital Signs: Last Vital Signs Temp 98.0 F 07/18/23 03:27 Pulse 85 07/18/23 03:27 Resp 22 H 07/18/23 03:27 BP 165/77 H 07/18/23 03:27 Pulse Ox 94 07/18/23 03:27 O2 Del Method Room Air 07/18/23 03:27 BMI result Body Mass Index 62.4 Vital signs revealed an elevated respiratory rate of 22 and an elevated blood pressure of 165/77 Exam: General: Awake, alert in no distress Head: Normocephalic, atraumatic EENT: PERRL, Lids normal, sclera normal, conjunctiva normal, nose normal , ears normal, throat without erythema or exudates Neck: Patient has spasm of her left trapezius muscle with significant tenderness palpation, she has no C-spine tenderness Lung: breath sounds symmetric, no wheezing, rales or rhonchi Chest: symmetric movement, tenderness palpation of the left anterior chest muscles Heart: regular rate and rhythm, normal S1, S2 no murmurs or rubs Abdomen: soft, non-tender, nondistended, normal bowel sounds Back: no vertebral tenderness, no CVAT Extremities: no deformities, moves all extremities symmetrically Neuro: Awake, alert, oriented, normal speech, cranial nerves intact, moves all extremities symmetrically Psych: Pleasant, cooperative Medical Decision Making Medical Decision Making MDM Narrative: 62-year-old female with a history of coronary artery disease, myocardial infarction 6 years prior with a stent, COPD, congestive heart failure, obstructive sleep apnea, hyperthyroidism who presents emergency department for evaluation of neck and back times 24 hours with left chest and left arm pain which started at 01:30 hours this morning. The pain is a constant, dull ache which is 8/10, worse with movement worse with lying down flat. Physical examination did reveal an elevated respiratory rate and elevated blood pressure otherwise was unremarkable. Patient does have significant tenderness palpation of her left trapezius muscle with spasm of this muscle as well as pain with palpation of her left anterior chest muscles. Differential diagnosis: ?Includes but is not limited to musculoskeletal pain, musculoskeletal spasm, myocardial infarction, myocardial ischemia Following evaluation was ordered: CBC, CMP, troponin COVID-19, RSV, influenza, chest x-ray one view, EKG Patient was initially treated with the following:Toradol 60 mg IM, Robaxin (methocarbamol) 1000 mg orally Course: 05:49 My interpretation patient's laboratory evaluation is as follows: CBC was normal. Glucose elevated 248, high sensitive troponin I was detectable but not elevated at 4.4. Patient's 12 EKG was unremarkable. Chest x-ray was unremarkable. This time I do not think the patient's pain was secondary to myocardial infarction or myocardial injury, given her tenderness and spasm of her left trapezius muscle and tenderness over her left anterior chest wall and believe the patient's pain is caused by musculoskeletal injury and I did discuss this with her. Patient was treated with Toradol 60 mg IM and Robaxin 1000 mg. She was advised to take ibuprofen 400 mg 3 times a day for 3-4 days to see if this improves her pain. I also increased her Robaxin (methocarbamol) to 1000 mg 3 times a day for 1 week. She was given printed and verbal instructions and discharged home Admission/Observation Consideration of admission/observation: Escalation of care including admission/observation considered Lab Data MDM Lab Attestation statement: I reviewed the patient's lab results. 07/18/23 03:35 07/18/23 03:35 Labs: Lab Results 04/20/24 Range/Units 03:35 WBC 12.5 H (4.8-10.8) X10*3/uL RBC 5.26 (4.20-5.50) X10*6/uL Hgb 15.8 (12.0-16.0) g/dl Hct 47.3 H (37.0-47.0) % MCV 89.9 (80.0-98.0) fL MCH 30.0 (27.0-33.0) pg MCHC 33.4 (31.0-35.0) g/dl RDW 14.1 (11.0-16.0) % Plt Count 220 (160-400) X10*3/uL MPV 10.2 (9.4-12.3) fL Immature Gran % (Auto) 0.8 H (0.0-0.4) % Neut % (Auto) 71.4 (45-73) % Lymph % (Auto) 19.0 L (20-40) % [place] % (Auto) 4.9 (2-11) % Eos % (Auto) 3.0 (0-4) % Baso % (Auto) 0.9 (0-2) % Lymph # (Auto) 2.4 (1.2-4.9) X10*3/uL [place] # (Auto) 0.6 (0.1-1.2) X10*3/uL Eos # (Auto) 0.4 (0.0-0.4) X10*3/uL Baso # (Auto) 0.1 (0.0-0.2) X10*3/uL Abs Immat Gran (auto) 0.10 H (0.00-0.03) X10*3/uL Absolute Neuts (auto) 8.9 H (2.0-8.3) x10*3/uL Absolute Nucleated RBC 0.000 (0.0-0.012) X10*3/uL Nucleated RBC % (auto) 0.0 (0.0-0.2) /100WBC Sodium 145 (135-145) mmol/L Potassium 4.2 (3.3-5.1) mmol/L Chloride 107 (96-108) mmol/L Carbon Dioxide 25 (22-29) mmol/L Anion Gap 17 (12-20) BUN 18 H (9-16) mg/dL Creatinine 0.93 (0.5-1.4) mg/dL Estim Creat Clear Calc 99.9 Estimated GFR > 60 Random Glucose 248 H (60-115) mg/dL Calcium 9.7 D (8.4-10.2) mg/dL Total Bilirubin 0.6 (0.0-1.0) mg/dL AST 25 (5-31) U/L ALT 27 (0-31) U/L Alkaline Phosphatase 58 (39-117) U/L Troponin I High Sens 4.4 (<3.5-17.0) ng/L Total Protein 6.7 (6.5-8.0) g/dL Albumin 4.0 (3.5-5.0) g/dL Influenza Type A (PCR) NEGATIVE (Negative) Influenza Type B (PCR) NEGATIVE (Negative) RSV RNA Qual (PCR) NEGATIVE (Negative) SARS-CoV-2 RNA (RT-PCR) NEGATIVE (Negative) Independent Interpretation I performed an independent interpretation of an: EKG Interpretation: My independent interpretation patient's 12 EKG done at 03:25 hours is as follows: Normal sinus rhythm rate of 87, normal [place] interval, QRS duration QTC interval, no ST segment elevation, no ST segment depression, inverted T-wave in lead 3, no PACs, no PVCs My interpretation patient's one-view chest x-ray is as follows: No acute disease Radiology Impression Discussion of test interpretation with radiology: I have reviewed the radiologist's reading. Radiologist Impression: XR chest 1V IMPRESSION: Redemonstrated region of opacity adjacent to the medial heart border, suspicious for a region of atelectasis in the right middle lobe when compared to prior. No additional acute findings identified. Dictated By: Lacho Colón MD Prescription Management I considered prescription management with: Other (Antispasmodic) Chronic Conditions Patient?s care impacted by: Diabetes and Other (Coronary disease) Discharge Plan Discharge Clinical Impression: Cervical radiculopathy, Spasm of left trapezius muscle, Strain of left trapezius muscle Patient Disposition: Home, Self-Care Instructions: Muscle Spasm (ED) Additional Instructions: Your EKG was unremarkable Your high sensitivity troponin I (marker of heart damage)was normal at 4.4 (less than 17 is normal in women) suggesting that you did not have a heart attack or heart damage as the cause of your pain. Your chest x-ray was unremarkable pain At this time I believe that the pain that your having is due to muscle spasm and muscle strain of your neck which is causing pain to radiate to your chest and down your arm (cervical radiculopathy) I am increasing your Robaxin (methocarbamol) to 1000 mg 3 times a day for 1 week Take ibuprofen 200 mg pills, 2 pills every 6 hours as needed for pain for 3-4 days. Follow-up with your doctor in 2 days. Please return to the emergency department if your symptoms get worse or if you develop any symptoms that are concerning to you. Prescriptions: New methocarbamol 1,000 mg tablet 1,000 mg PO TID 7 Days Qty: 21 0RF No Action pregabalin 75 mg capsule 75 mg PO BID 30 Days Qty: 60 3RF levothyroxine 112 mcg tablet 112 mcg PO DAILY Qty: 30 2RF cholecalciferol (vitamin D3) [Vitamin D3] 50 mcg (2,000 unit) capsule 50 mcg PO DAILY Qty: 90 11RF prednisone 5 mg tablet 5 mg PO DAILY Qty: 30 3RF Trelegy Ellipta 100-62.5-25 mcg blister with device 1 ea inhalation DAILY Qty: 1 0RF docusate sodium 100 mg capsule 1 cap PO BID insulin glargine [Lantus Solostar U-100 Insulin] 100 unit/mL (3 mL) Insulin Pen 30 unit SUBCUT BID Qty: 15 0RF Rx Instructions: PER PATIENT, MAY REQUIRE HIGHER DOSES WHEN ON STEROIDS insulin lispro [Humalog KwikPen Insulin] 100 unit/mL Insulin Pen 1 sliding scale dose SUBCUT TIDAC Protocol: Insulin Correction Scale Less than or equal to 110 ---- Give (units): 0 111 to 150 Give (units): 0 151 to 200 Give (units): 2 201 to 250 Give (units): 4 251 to 300 Give (units): 6 301 to 350 Give (units): 8 Greater than 350 Give (units): 10 Call MD if Blood Glucose > : 350 Rx Instructions: 6-10 before meals calcium citrate-vitamin D3 315 mg-6.25 mcg (250 unit) tablet 2 tab PO QID ipratropium-albuterol 0.5 mg-3 mg(2.5 mg base)/3 mL solution for nebulization 3 ml inhalation QID PRN (Reason: Shortness Of Breath Or Wheezing) sennosides [senna] 8.6 mg Tablet 17.2 mg PO BEDTIME PRN (Reason: Constipation) methocarbamol 750 mg tablet 750 mg PO DAILY PRN (Reason: for muscle spasm) roflumilast 500 mcg tablet 250 mcg PO DAILY oxycodone-acetaminophen 5-325 mg tablet 1 tab PO Q4H PRN (Reason: pain (scale score 4-6)) 7 Days Qty: 8 0RF Rx Instructions: Partial Fill upon patient request. tamsulosin 0.4 mg capsule 0.4 mg PO BEDTIME 14 Days Qty: 14 0RF phenazopyridine [Pyridium] 100 mg tablet 100 mg PO TID PRN (Reason: Spasm) 4 Days Qty: 12 0RF Combivent Respimat 20-100 mcg/actuation mist 2 puff inhalation BID Rx Instructions: space evenly during waking hours omeprazole 20 mg capsule,delayed release(DR/EC) 20 mg PO BID@0630,1630 aspirin 81 mg tablet,delayed release (DR/EC) 81 mg PO BEDTIME carvedilol 6.25 mg tablet 6.25 mg PO BID atorvastatin 80 mg tablet 80 mg PO BEDTIME Protocol: Hold for SBP< HOLD for SBP < : 90 montelukast 10 mg tablet 10 mg PO BEDTIME cetirizine 10 mg tablet 10 mg PO DAILY fluticasone propionate 50 mcg/actuation spray,suspension 1 spray intranasal DAILY PRN (Reason: Congestion) (DME) lancets [TRUEplus Lancets] 33 gauge misc See Rx Instructions .ROUTE TID Qty: 100 Rx Instructions: As directed (DME) FreeStyle Lite Strips Strip See Rx Instructions .ROUTE TID Qty: 10 Rx Instructions: As directed naloxone 4 mg/actuation spray,non-aerosol 1 spray intranasal ONCE PRN (Reason: Opioid Overdose) oxycodone-acetaminophen 7.5-325 mg tablet 1 tab PO Q6H Trulicity 1.5 mg/0.5 mL pen injector 1.5 mg subcut REESE@0900 pyridoxine (vitamin B6) 100 mg tablet 100 mg PO DAILY 90 Days Qty: 90 3RF (DME) nebulizers Misc See Rx Instructions .ROUTE Rx Instructions: As directed Print Language: Palauan
--- NOTE | 2023-07-18 05:37 | PC.NURSE ---
pt assessed reported left arm, chest and neck pain that started at 0230. denies any falls, reported taking percocet at home with no relief and took 162 ASA prior to ed visit. labs obtained
[2023-07-18 06:08] VITALS: BP 154/88; PULSE 77; RESP 20; TEMP 36.6; O2SAT 93
[2023-07-18] MEDS: Ketorolac Tromethamine 60 MG/2 ML VIAL IM (06:15)
== END 2023-07-18 06:45 | disposition home or self-care (01) ==
PROVIDERS: Emergency Provider Emergency Medicine Emergency Medical Services; PCP Internal Medicine Geriatric Medicine
DX: M54.12 Radiculopathy, cervical region (principal); M62.838 Other muscle spasm; S16.1XXA Strain of muscle, fascia and tendon at neck level, initial encounter; X58.XXXA Exposure to other specified factors, initial encounter; R06.02 Shortness of breath; E11.9 Type 2 diabetes mellitus without complications; I10 Essential (primary) hypertension; E78.5 Hyperlipidemia, unspecified; J44.9 Chronic obstructive pulmonary disease, unspecified; Z11.52 Encounter for screening for COVID-19; Z20.828 Contact with and (suspected) exposure to other viral communicable diseases; Z79.4 Long term (current) use of insulin; Z79.02 Long term (current) use of antithrombotics/antiplatelets; Z79.82 Long term (current) use of aspirin; Z79.899 Other long term (current) drug therapy; F17.200 Nicotine dependence, unspecified, uncomplicated; Y93.9 Activity, unspecified; Y92.9 Unspecified place or not applicable; Y99.9 Unspecified external cause status
CPT/HCPCS: 0241U; 71045; 80053; 84484; 85025; 93005; 96372; 99284; J1885

== ENCOUNTER → 2023-07-18 03:25 | Outpatient (BNV) | payer OTHER, SELFPAY | PROVIDERS: Emergency Provider Emergency Medicine Emergency Medical Services; PCP Internal Medicine Geriatric Medicine; Visit Provider Internal Medicine | DX: I45.19 Other right bundle-branch block (principal); R94.31 Abnormal electrocardiogram [ECG] [EKG] | CPT/HCPCS: 93010 ==

== ENCOUNTER 2023-07-22 10:26 | Outpatient (AMB) | payer OTHER, SELFPAY ==
--- NOTE | 2023-07-22 10:33 | MHC.OFFVIS ---
Intake Visit Reasons: S/P ESWL/US(set)Confirmed Intake Note: Patient is Present for Follow Up Urology Medication: Vitamin B6 (Patient is no longer taking Tamsulosin) Antibiotic Allergies: Erythromycin Blood Thinners: Aspirin Allergies HANK Inhibitors [HANK INHIBITORS] Allergy (Severe, Verified 07/22/23 10:36) ANGIO EDEMA enalapril Allergy (Severe, Verified 07/22/23 10:36) Anaphylaxis erythromycin base [ERYTHROMYCIN BASE] Allergy (Severe, Verified 07/22/23 10:36) HIVES ALL OVER hydromorphone [From DILAUDID] Adverse Reaction (Severe, Verified 07/22/23 10:36) TINGLING, PT DOES NOT LIKE THE FEELING MED GIVES HER Medication List - Last Reconciled 07/22/23 by Blayne Srinivasan MD aspirin 81 mg PO BEDTIME atorvastatin 80 mg See Protocol PO BEDTIME blood sugar diagnostic (FreeStyle Lite Strips) As directed calcium citrate-vitamin D3 315 mg-6.25 mcg (250 unit) 2 tabs PO QID carvedilol 6.25 mg PO BID cetirizine 10 mg PO DAILY cholecalciferol (vitamin D3) (Vitamin D3) 50 mcg PO DAILY docusate sodium 1 cap PO BID dulaglutide (Trulicity) 1.5 mg subcut REESE@0900 fluticasone propionate 50 mcg/actuation 1 spray intranasal DAILY PRN dtvgjofjsbn-fauxdmjwt-druybtni 100-62.5-25 mcg (Trelegy Ellipta) 1 ea inhalation DAILY insulin glargine (Lantus Solostar U-100 Insulin) 30 units (0.3 mL) subcut BID insulin lispro (Humalog KwikPen (U-100) Insulin) 1 sliding scale dose See Protocol subcut TIDAC ipratropium-albuterol 0.5 mg-3 mg(2.5 mg base)/3 mL 3 mL inhalation QID PRN ipratropium-albuterol 20-100 mcg/actuation (Combivent Respimat) 2 puffs inhalation BID lancets (TRUEplus Lancets) As directed levothyroxine 112 mcg PO DAILY methocarbamol 1,000 mg (2 x 500 mg) PO BID-TID PRN 30 days montelukast 10 mg PO BEDTIME naloxone 4 mg/actuation 1 spray intranasal ONCE PRN nebulizers As directed omeprazole 20 mg PO BID@0630,1630 oxycodone-acetaminophen 5-325 mg 1 tab PO Q4H PRN 7 days oxycodone-acetaminophen 7.5-325 mg 1 tab PO Q6H phenazopyridine (Pyridium) 100 mg PO TID PRN 4 days prednisone 5 mg PO DAILY pregabalin 75 mg PO BID 30 days pyridoxine (vitamin B6) 100 mg PO DAILY 90 days roflumilast 250 mcg PO DAILY sennosides (senna) 17.2 mg PO BEDTIME PRN tamsulosin 0.4 mg PO BEDTIME 14 days HPI Comments Details: Alireza is a pleasant female. She is a patient of Dr. David. She is seen for the following urologic conditions - nephrolithiasis Follow-up from right ESWL Imaging with fragments Encourage fluids Vitamin B6 Nephrolithiasis Recurrent stone former Imaging - 07/20 renal ultrasound discrepancy in size verification - 03/21 8 mm nonobstructing right lower pole renal calculus. Mild right renal pelvic collecting system fullness. No right hydroureter. Plan [facility] Medical History History of back pain History of neuropathy Smokes tobacco daily Opioid dependence Nephrolithiasis Hyperlipidemia HTN (hypertension) Cardiomyopathy Myocardial infarction CAD (coronary artery disease) Cough Hypothyroidism, postsurgical Tubular adenoma Diabetes MCKAY (obstructive sleep apnea) Irritable bowel syndrome Hyperthyroidism Polycythemia Smoker Hypoxia COPD exacerbation Lesion of bronchus Tracheal anomaly Multinodular goiter Vitamin D deficiency Atelectasis Subclinical hyperthyroidism Goiter Pneumonia Pulmonary nodules COPD (chronic obstructive pulmonary disease) Surgical History History of coronary artery stent placement Hx of thyroidectomy History of thyroid surgery History of esophagogastroduodenoscopy (EGD) Hx of colonoscopy History of back surgery History of ureterostomy S/P lumpectomy, right breast History of cholecystectomy History of tonsillectomy Family History Father No problems noted. Mother No problems noted. Paternal Aunt Diabetes Social History Household Members: Spouse Housing: House Do you presently have visiting nurse or other home services: No Alcohol intake: never Comment: pt refused bed alarm/camera Patient Tobacco Use Status: Current everyday Tobacco user Tobacco use type: Cigarette Cigarette Packs Per Day: 0.5 Cigarettes Per Day: 6 e-Cigarette/Vaping Use: Never Used Second Hand Smoke Exposure: Yes Substance Use Type: Marijuana Advance Directives Date on File: 01/24/21 service: No Current occupational status: disabled Review of Systems Const Denies chills and Denies fever(s) Card Reports no additional complaints and Denies syncope Resp Denies cough GI Denies abdominal pain and Denies heartburn Reports as per HPI and Denies change in libido Neuro Denies syncope Psych Denies change in libido Endo Denies change in libido Physical Exam Const General: cooperative, healthy appearing, comfortable and no acute distress Orientation/consciousness: patient oriented x3 HEENT Face and sinus: Yes normal facial exam Mouth: moist mucous membranes Neck Neck: Yes normal visual inspection, Yes full ROM and Yes trachea midline Chest Chest palpation & inspection: normal inspection of the chest Resp Effort & Inspection: normal respiratory effort, able to speak in complete sentences and no respiratory distress GI Inspection: Yes normal to inspection Back/Spine/Pelvis Cervical Spine: normal cervical lordosis Thoracic/Lumbar Spine: thoracic and lumbar spine normal to inspection Skin General skin exam: no rashes or lesions noted Neuro General: patient oriented x3, gait normal, tone normal and moves all extremities Extrem General: Yes normal to inspection and Yes capillary refill normal Quality Reporting (2019) Adult ([facility] 13805/21/68) Smoking risk assessment performed?: Yes Patient Tobacco Use Status: Current everyday Tobacco user Assessment & Plan Assessment & Plan (1) Bilateral nephrolithiasis: Code(s): N20.0 - Calculus of kidney Category: Medical Plan Six-month follow-up renal ultrasound Orders: Orders US renal BI 6 Months N20.0 - Calculus of kidney Medications: Changed From pyridoxine (vitamin B6) 100 mg PO DAILY 90 days 90 tabs 3RF N13.2 - Hydronephrosis with renal and ureteral calculous obstruction To pyridoxine (vitamin B6) 50 mg PO DAILY 90 days 90 tabs 3RF N13.2 - Hydronephrosis with renal and ureteral calculous obstruction Patient Instructions: Imaging studies, laboratory and physical exam results were discussed and reviewed in detail. No major barriers to patient understanding were identified. An opportunity to ask questions regarding the treatment plan was provided. All questions were answered. The patient expressed understanding and agreement with the above treatment plan. The patient is aware they should contact our office by phone for worsening of their current condition or the appearance of new urologic symptoms. Compliance is encouraged with any medications and followup testing that is ordered. It is a privilege to participate in the urologic care of your patient. If you have any questions or concerns regarding treatment for the above conditions, or other urologic issues, please do not hesitate to contact me. The office telephone contact is [phone]. This note is constructed using voice recognition software. While every effort has been made to ensure accuracy pumper gauger apprentice errors may have been included. Yours sincerely, Dr Blayne Srinivasan MD, [facility] - Urology Providers of Expert, Compassionate Care for the Genitourinary System Coding Level of Care Code Est Pt Level 3 (41800) Diagnoses Bilateral nephrolithiasis N20.0
== END 2023-07-22 10:55 | disposition home or self-care (01) ==
PROVIDERS: PCP Internal Medicine Geriatric Medicine; Visit Provider Urology
DX: N20.0 Calculus of kidney (principal)
CPT/HCPCS: 99024

== ENCOUNTER → 2023-07-22 10:26 | Outpatient (BNVA) | payer OTHER, SELFPAY | PROVIDERS: PCP Internal Medicine Geriatric Medicine; Visit Provider Urology | DX: N20.0 Calculus of kidney (principal) | CPT/HCPCS: 99212 ==

== ENCOUNTER 2023-07-24 08:26 | Outpatient (REF) | payer OTHER, SELFPAY ==
--- NOTE | ~2023-07-24 | XR_ITS ---
EXAMINATION: XR CERVICAL SPINE XR DORSAL SPINE CLINICAL INFORMATION: Radiculopathy cervical region. COMPARISON: None. TECHNIQUE: 3 views of the dorsal spine. 6 views of the cervical spine. FINDINGS: Cervical spine: Vertebral bodies normally aligned. There are prominent bridging osteophytes along the anterior aspect of the C5-C6 levels. Mild degenerative disc changes at the C4-C5, C5-C6 and C6-C7 levels manifested by endplate osteophytes. Facets unremarkable. No bony encroachment on the neural foramina. Surgical clips noted anterior to the cervical spine. Dorsal spine: Vertebral bodies normal in height, normally aligned. Multilevel degenerative disc changes manifested by endplate osteophytes and disc space narrowing. Surrounding bone and soft tissues unremarkable. XR/XR cervical spine min 6V IMPRESSION: 1. Cervical spine: Mild multilevel degenerative changes of the cervical spine. 2. Dorsal spine: Mild multilevel spondylosis.
--- NOTE | ~2023-07-24 | XR_ITS ---
EXAMINATION: XR CERVICAL SPINE XR DORSAL SPINE CLINICAL INFORMATION: Radiculopathy cervical region. COMPARISON: None. TECHNIQUE: 3 views of the dorsal spine. 6 views of the cervical spine. FINDINGS: Cervical spine: Vertebral bodies normally aligned. There are prominent bridging osteophytes along the anterior aspect of the C5-C6 levels. Mild degenerative disc changes at the C4-C5, C5-C6 and C6-C7 levels manifested by endplate osteophytes. Facets unremarkable. No bony encroachment on the neural foramina. Surgical clips noted anterior to the cervical spine. Dorsal spine: Vertebral bodies normal in height, normally aligned. Multilevel degenerative disc changes manifested by endplate osteophytes and disc space narrowing. Surrounding bone and soft tissues unremarkable. XR/XR thoracic spine 3V IMPRESSION: 1. Cervical spine: Mild multilevel degenerative changes of the cervical spine. 2. Dorsal spine: Mild multilevel spondylosis.
== END 2023-07-24 08:27 | disposition home or self-care (01) ==
LOC: HO.XRAY 08:26
PROVIDERS: PCP Internal Medicine Geriatric Medicine; Visit Provider Nurse Practitioner Family
DX: M54.12 Radiculopathy, cervical region (principal); M47.812 Spondylosis without myelopathy or radiculopathy, cervical region; M62.838 Other muscle spasm; M54.9 Dorsalgia, unspecified
CPT/HCPCS: 72052; 72072; 99212

== ENCOUNTER 2023-07-24 08:26 | Outpatient (AMB) | payer OTHER, SELFPAY ==
--- NOTE | 2023-07-24 08:28 | A.OFFVIS_ITS ---
Vital Signs 07/24/23 08:31 07/24/23 08:54 Height 5 ft 5 in Weight 174 lb 3 oz BMI 29.0 BP 176/79 H Blood Pressure Location Rt brachial Position Sitting Respiration 18 Pulse 90 84 Pulse Source Pulse Oximeter Pulse Oximeter Pulse Oximetry (%) 91 L 93 Oxygen Delivery Method Room Air Room Air Intake Visit Reasons: cervicalgia Intake Note: Pain today 9/10 Allergies HANK Inhibitors [HANK INHIBITORS] Allergy (Severe, Verified 07/24/23 08:33) ANGIO EDEMA enalapril Allergy (Severe, Verified 07/24/23 08:33) Anaphylaxis erythromycin base [ERYTHROMYCIN BASE] Allergy (Severe, Verified 07/24/23 08:33) HIVES ALL OVER hydromorphone [From DILAUDID] Adverse Reaction (Severe, Verified 07/24/23 08:33) TINGLING, PT DOES NOT LIKE THE FEELING MED GIVES HER HPI Comments Details: Patient presents today for follow up for acute left sided neck pain and muscle spasms. Denies any recent trauma, injury or falls. Reports she woke up with severe left sided neck pain one week ago with radiation to her left chest and left upper arm with numbness, burning and weakness. She reports she might have slept in a wrong position. Pain was so debilitating for her that she went for medical evaluation to ER on 07/18/23. Her cardiac work up was grossly normal and showed no acute findings. She was sent home with increased dose of methocarbamol. Patient reports she has been using heating pad, methocarbamol, Ibuprofen and taking her regular medication, Percocet and pregabalin without any relief. She presents with limited range of motion on her left side of the neck and significant muscle spasms and stiffness in her cervical paraspinals, trapezius, scalene and rhomboid muscles. Patient reports increased dyspnea on exertion and flare-up with COPD and seasonal allergies. Unfortunately she continues to smoke less than half a pack every day, not interested to quit at this time. Patient is on prednisone 5 mg daily. Denies any fever, chills, chest pain, visual disturbances, gait imbalances, bladder or bowel dysfunction or saddle anesthesia. PRIOR: Patient presents for 2nd application of capsaicin 8% topical patch for diabetic neuropathy in bilateral feet. Patient reports after first Qutenza application she had no pain in her feet for 14 days after which baseline numbness, tingling and burning returned, worse at night. Patient also continues to endorse low back pain that radiates into her left lower extremity laterally and anteriorly with stabbing and shooting pain. Reports methocarbamol has been effective and requests refill for this. We discussed interventional treatments for her axial and radicular symptoms. Patient is hesitant toward injections and is not candidate for therapeutic injections due to elevated A1C levels. Patient states she restarted prednisone taper yesterday for COPD exacerbation. She manages her blood sugars spikes with Insulin during prednisone intake. Reports A1C fluctuates 7.0-10.0. Denies cough, cold, infection, fever, bladder or bowel dysfunction or saddle anesthesia. Patient also reports she is planning to undergo ESWL procedure for kidney stones. PRIOR: Patient presents today for medication review. Patient reports methocarbamol 750 mg Q8H prn has been well tolerated and effective for her. We tried prescribing BID prn for past few month, patient reports she has noticied significant discomfort with decreased dose. She is suffering from chronic back pain with left sided radiculopathy, lumbar post laminectomy syndrome, sacroiliac joint pain, painful diabetic neuropathy, muscle spasms and stiffness, kidney stones and more recently dealing with hyperthyroidism and multinodular goiter. She reports A1C>9.2 therefore is not candidate for therapeutic injections. Patient reports gabapentin has not been effective. She is also prescribed Percocet by her PCP which along with methocarbamol allows her to be less symptomatic and more functional. Denies any fever, bladder or bowel incontinence or saddle anesthesia. PRIOR: Patient presents today for follow up and medication discussion. Patient was initially seen on 10/07/21 without other follow ups. Patient reports she initiated physical therapy in summer 2021 but had to stop due to worsening pain and COVID illness. 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 She continues to smoke and has been working on decreasing amount of daily cigarettes. Patient reports chronic low back pain with muscle stiffness and spasms that radiates into her left lower extremity laterally to the dorsum of left foot and toes with numbness and tingling. Reports worsening of pain with lumbar flexion as well as prolonged walking forward bending, changing positions and cold and rainy weather changes. Her axial back pain has been minimal. She is insulin dependent diabetic with noted elevation of blood sugars during January and February due to inhaled and oral steroid intake for COPD and COVID illness few month ago. Patient reports next follow up with her PCP in 2 weeks with recheck of A1C. If her AIC 8.5, we will consider Left L4-L5 TFESI. She has been taking gabapentin 300 mg tid prn and oxycodone prn for severe pain with partial relief. This is prescribed by her PCP. Methocarbamol has been effective for muscle spasms without noted side effects. Lumbar spine MRI in 2019 were reviewed with patient today and is noted below. Patient denies any fever, chest pain, shortness of breaths, abdominal or groin pain, bladder or bowel incontinence or saddle anesthesia. PRIOR 10/07/21: Patient is a pleasant 60 year old female with back surgery a year ago by Dr. Whelan presents today with lower back pain that radiates into her left lower extremity laterally with numbness and tingling in her left foot. She reports walking has improved after back surgery but muscle spasms have been ?terrifying and not controllable.? Patient states her back pain also travels upwards toward mid back and in between shoulder blades. Pain is described as constant aching, pins and needles, throbbing, burning, and spasming sensations which worsen during the evenings and middle of the night with highest pain intensity at 9/10. Patient reports her pain is increased with walking over 20 minutes, prolonged sitting or standing. She cannot get comfortable during the night and has been sleeping poorly. She has been trying to control her pain with tizanidine and Percocet 7.5-325 mg QID prn with continued symptoms. Patient has received lumbar injection x1 prior to back surgery with only one week of pain relief. She completed physical therapy with a TENS unit and weighted ice packs with mild to moderate improvements. No MRIs or lumbar x rays were done after back surgery per patient. She is interested in neuromodulation treatment modalities but would like to restart physical therapy and obtain her personal TENS unit. Patient denies any fever, chills, malaise, abdominal or groin pain, weakness, bowel/bladder incontinence or saddle anesthesia. She ambulates with normal gait without assisting devices. [facility] Medical History History of back pain History of neuropathy Smokes tobacco daily Opioid dependence Nephrolithiasis Hyperlipidemia HTN (hypertension) Cardiomyopathy Myocardial infarction CAD (coronary artery disease) Cough Hypothyroidism, postsurgical Tubular adenoma Diabetes MCKAY (obstructive sleep apnea) Irritable bowel syndrome Hyperthyroidism Polycythemia Smoker Hypoxia COPD exacerbation Lesion of bronchus Tracheal anomaly Multinodular goiter Vitamin D deficiency Atelectasis Subclinical hyperthyroidism Goiter Pneumonia Pulmonary nodules COPD (chronic obstructive pulmonary disease) Surgical History History of coronary artery stent placement Hx of thyroidectomy History of thyroid surgery History of esophagogastroduodenoscopy (EGD) Hx of colonoscopy History of back surgery History of ureterostomy S/P lumpectomy, right breast History of cholecystectomy History of tonsillectomy Family History Father No problems noted. Mother No problems noted. Paternal Aunt Diabetes Social History Household Members: Spouse Housing: House Do you presently have visiting nurse or other home services: No Alcohol intake: never Comment: pt refused bed alarm/camera Patient Tobacco Use Status: Current everyday Tobacco user Tobacco use type: Cigarette Cigarette Packs Per Day: 0.5 Cigarettes Per Day: 6 e-Cigarette/Vaping Use: Never Used Second Hand Smoke Exposure: Yes Substance Use Type: Marijuana Advance Directives Date on File: 01/24/21 service: No Current occupational status: disabled Review of Systems Const All systems reviewed & are unremarkable except as noted in HPI and below ENT Reports Normal hearing present Neuro Reports Normal hearing present, Denies Abnormal speech present and Denies Sensory deficit (Neuro) Physical Exam Vital Signs: Last Vital Signs Pulse 84 07/24/23 08:54 Resp 18 07/24/23 08:54 BP 176/79 H 07/24/23 08:31 Pulse Ox 93 07/24/23 08:54 Oxygen Delivery Method Room Air 07/24/23 08:54 BMI result Body Mass Index 29.0 General: Appears afebrile. Alert and oriented. Mood and affect appropriate. Follows and participates in conversation appropriately. Respiratory effort is unlabored. No cough. Mild dyspnea on exertion. Able to transition from sit to stand unassisted. Ambulates with bilaterally normal heel strike and toe off. Neck Neck: Yes no lymphadenopathy, Yes no meningeal signs, Yes supple, No anterior neck swelling, Yes no JVD, No prominent supraclavicular fat pad and No prominent dorsocervical fat pad Back/Spine/Pelvis Cervical Spine: No collar present, No Lhermitte's sign positive, loss of normal cervical lordosis, cervical muscular tenderness (left worse than right), pain with cervical ROM, cervical spasm (left), No Cervical spine tenderness and No step off deformity Thoracic/Lumbar Spine: thoracic and lumbar spine normal to inspection, Lasegue's sign negative, straight leg raise negative bilaterally, paraspinal muscle tenderness on the left greater than right, thoracic spinal tenderness (upper thoracic) and lumbar spinal tenderness at L4 and at L5 Neuro General: moves all extremities, Normal light touch and pain sensation, no meningeal signs, no focal motor deficits, CN's II-XI intact bilaterally and deep tendon reflexes 2+ bilaterally Cranial nerves: Yes Normal hearing present and Yes Ability to bilaterally elevate shoulders present Cognition (Neuro): normal cognition Speech: No Abnormal speech present Gait exam (Neuro): Antalgic gait present and No Assistive device used Motor exam (neuro): 5/5 motor strength present throughout (4/5 LUE), Pronator motor function not present, no tremor noted and Motor abnormalities not present Sensory Exam: No Sensory deficit (Neuro) Quality Reporting (2019) Adult ([facility] 138/05/21/68) Smoking risk assessment performed?: Yes Patient Tobacco Use Status: Current everyday Tobacco user Results Reviewed Results Reviewed: Imaging reports are available for review. Assessment & Plan Assessment & Plan (1) Cervical radiculitis: Code(s): M54.12 - Radiculopathy, cervical region Category: Medical (2) Cervical spondylosis: Code(s): M47.812 - Spondylosis without myelopathy or radiculopathy, cervical region Category: Medical (3) Muscle spasms of neck: Code(s): M62.838 - Other muscle spasm Category: Medical (4) Acute upper back pain: Code(s): M54.9 - Dorsalgia, unspecified Category: Medical (5) Cervical radiculitis: Code(s): M54.12 - Radiculopathy, cervical region Category: Medical (6) Cervical spondylosis: Code(s): M47.812 - Spondylosis without myelopathy or radiculopathy, cervical region Category: Medical (7) Muscle spasms of neck: Code(s): M62.838 - Other muscle spasm Category: Medical (8) Acute upper back pain: Code(s): M54.9 - Dorsalgia, unspecified Category: Medical Plan Patient presents with acute left-sided neck pain consistent with muscle spasms, stiffness and radicular symptoms. We will proceed with thoracic and cervical spine imaging to assess degree of degenerative changes, any subluxation, listhesis, compression fractures or pars defects. Recommend formal physical therapy for acute left sided neck pain. Script provided. Scripts provided for Celebrex prn only and lidocaine patches. Side effects and precautions reviewed with patient. All questions and concerns were answered and the patient agreed with the plan. Follow up after PT and sooner as needed. Orders: Orders XR cervical spine min 6V Today M47.812 - Spondylosis without myelopathy or radiculopathy, cervical region, M54.12 - Radiculopathy, cervical region, M62.838 - Other muscle spasm PT Evaluation and Treatment Today M47.812 - Spondylosis without myelopathy or radiculopathy, cervical region, M54.12 - Radiculopathy, cervical region, M54.9 - Dorsalgia, unspecified, M62.838 - Other muscle spasm XR thoracic spine 3V Today M54.12 - Radiculopathy, cervical region, M54.9 - Dorsalgia, unspecified, M62.838 - Other muscle spasm Medications: New celecoxib (Celebrex) Take it with food and full glass of water. Avoid other NSAIDs. 200 mg PO BID PRN 60 caps 0RF pain M47.812 - Spondylosis without myelopathy or radiculopathy, cervical region, M54.12 - Radiculopathy, cervical region, M54.9 - Dorsalgia, unspecified, M62.838 - Other muscle spasm lidocaine 5% leave on most painful area for up to 12 hrs topically daily; 30 ea 1RF pain M54.9 - Dorsalgia, unspecified Discontinued oxycodone-acetaminophen 5-325 mg Partial Fill upon patient request. Discontinued Reason: Patient Completed Course 1 tab PO Q4H 7 days PRN 8 tabs 0RF pain (scale score 4-6) Coding Level of Care Code Est Pt Level 4 (09345) Diagnoses Cervical radiculitis M54.12 Cervical spondylosis M47.812 Muscle spasms of neck M62.838 Acute upper back pain M54.9
[2023-07-24 08:31] VITALS: BP 176/79; PULSE 90; O2SAT 91; BMI 29.0
[2023-07-24 08:54] VITALS: PULSE 84; RESP 18; O2SAT 93
== END 2023-07-24 08:56 | disposition home or self-care (01) ==
PROVIDERS: PCP Internal Medicine Geriatric Medicine; Visit Provider Nurse Practitioner Family
DX: M54.12 Radiculopathy, cervical region (principal); M47.812 Spondylosis without myelopathy or radiculopathy, cervical region; M62.838 Other muscle spasm; M54.9 Dorsalgia, unspecified
CPT/HCPCS: 99214

== ENCOUNTER 2023-08-12 08:52 | Outpatient (AMB) | payer OTHER, SELFPAY ==
--- NOTE | 2023-08-12 09:02 | MHC.OFFVIS ---
Vital Signs 08/12/23 09:05 Height 5 ft 5 in Weight 170 lb BMI 28.3 BP 116/56 L Blood Pressure Location Rt brachial Position Sitting Pulse 83 Intake Visit Reasons: 1 year fu Intake Note: Patient yearly follow up for constipation Patient cc: constipation on and off, also she is on pain due her neck nerves. 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 Patient reports that her symptoms are related and depend that to what she eats. Discussed with patient low FODMAP diet. Tubular adenoma Large tubular adenoma without high-grade dysplasia or carcinoma. Patient will return for colorectal 2 years, sooner on as needed basis. Status post colonoscopy Patient denies any ill effects from the prep, anesthesia or procedure itself. Patient states that she did very well after the procedure GERD (gastroesophageal reflux disease) Continue current treatment with omeprazole the. Discussed with patient avoiding dietary triggers and late night snacking. Staying upright for minimum 3 hours after meals discussed with patient. Patient will return in 1 year, sooner on as needed basis. Patient is agreeable to this plan and verbalizes understanding of instructions. She was given the opportunity to ask questions and all questions answered. ? TODAY'S VISIT: Patient is here today for annual follow-up. Patient reports that she has been feeling well except for her neck and back pain. Patient has been followed in pain management, however patient does report that she is not getting better. Currently on pain management with oxycodone. Patient reports that she is taking stool softeners, MiraLax and senna on as needed basis. Patient denies any abdominal pain or discomfort. Denies any melena, hematochezia, unintentional weight loss or ribbon like stools. Patient denies any dyspepsia, dysphagia or odynophagia. Patient denies any GI concerning symptoms [facility] Medical History History of back pain History of neuropathy Smokes tobacco daily Opioid dependence Nephrolithiasis Hyperlipidemia HTN (hypertension) Cardiomyopathy Myocardial infarction CAD (coronary artery disease) Cough Hypothyroidism, postsurgical Tubular adenoma Diabetes MCKAY (obstructive sleep apnea) Irritable bowel syndrome Hyperthyroidism Polycythemia Smoker Hypoxia COPD exacerbation Lesion of bronchus Tracheal anomaly Multinodular goiter Vitamin D deficiency Atelectasis Subclinical hyperthyroidism Goiter Pneumonia Pulmonary nodules COPD (chronic obstructive pulmonary disease) Surgical History History of coronary artery stent placement Hx of thyroidectomy History of thyroid surgery History of esophagogastroduodenoscopy (EGD) Hx of colonoscopy History of back surgery History of ureterostomy S/P lumpectomy, right breast History of cholecystectomy History of tonsillectomy Family History Father No problems noted. Mother No problems noted. Paternal Aunt Diabetes Social History Household Members: Spouse Housing: House Do you presently have visiting nurse or other home services: No Alcohol intake: never Comment: pt refused bed alarm/camera Patient Tobacco Use Status: Current everyday Tobacco user Tobacco use type: Cigarette Cigarette Packs Per Day: 0.5 Cigarettes Per Day: 6 e-Cigarette/Vaping Use: Never Used Second Hand Smoke Exposure: Yes Substance Use Type: Marijuana Advance Directives Date on File: 01/24/21 service: No Current occupational status: disabled Review of Systems Const Denies weight gain and Denies weight loss ENT Reports no additional complaints, Denies dysphagia and Denies odynophagia Card Reports no additional complaints Resp Reports no additional complaints GI Denies abdominal pain, Denies belching, Denies melena, Denies bloating, Denies change in bowel habits, Reports constipation (Occasional), Denies dysphagia, Denies excessive flatus, Denies dyspepsia, Denies heartburn, Denies diarrhea, Denies loose stools, Denies nausea, Denies odynophagia and Denies vomiting Reports no additional complaints Musc Reports no additional complaints Neuro Reports no additional complaints Psych Reports no additional complaints Endo Reports no additional complaints Physical Exam Vital Signs: Last Vital Signs Pulse 83 08/12/23 09:05 BP 116/56 L 08/12/23 09:05 BMI result Body Mass Index 28.3 Const General: no acute distress Nutritional Appearance: obese Orientation/consciousness: patient oriented x3 Resp Effort & Inspection: normal respiratory effort, able to speak in complete sentences, no tracheal deviation and symmetric chest movement Auscultation: clear to auscultation bilaterally Cardio Rate: regular rate GI Inspection: Yes normal to inspection, No distended and Yes obesity Palpation (GI): Soft to palpation, not firm, nontender and No hepatosplenomegaly present Auscultation: normal bowel sounds General: Yes no CVA tenderness Back/Spine/Pelvis Back: no CVA tenderness Skin General skin exam: elasticity normal, turgor normal and dry skin Neuro General: patient oriented x3 Psych Appearance: grossly normal Mental Status: mental status grossly normal Quality Reporting (2019) Adult ([facility] 13805/21/68) Smoking risk assessment performed?: Yes Patient Tobacco Use Status: Current everyday Tobacco user Assessment & Plan Assessment & Plan (1) Irritable bowel syndrome: Code(s): K58.9 - Irritable bowel syndrome without diarrhea Category: Medical Qualifiers: Irritable bowel syndrome type: with both diarrhea and constipation Qualified Code(s): K58.2 - Mixed irritable bowel syndrome (2) GERD (gastroesophageal reflux disease): Code(s): K21.9 - Gastro-esophageal reflux disease without esophagitis Qualifiers: Esophagitis presence: esophagitis presence not specified Qualified Code(s): K21.9 - Gastro-esophageal reflux disease without esophagitis (3) Constipation: Code(s): K59.00 - Constipation, unspecified Qualifiers: Constipation type: slow transit constipation Qualified Code(s): K59.01 - Slow transit constipation Plan Patient will continue drinking fluids throughout the day. Increase activity to promote better bowel motility. Take medications as ordered to move her bowels daily. Patient will be due for colonoscopy next year. Patient will return in 1 year to discuss going for procedure. She will call our office with any GI concerning symptoms. Patient is agreeable to this plan and verbalizes understanding of instructions. She was given the opportunity to ask questions and all questions answered. Thank you for allowing me to participate in her care Coding Level of Care Code Est Pt Level 3 (83155) Diagnoses Irritable bowel syndrome with both constipation and diarrhea K58.2 Irritable bowel syndrome type: with both diarrhea and constipation Gastroesophageal reflux disease, unspecified whether esophagitis present K21.9 Esophagitis presence: esophagitis presence not specified Slow transit constipation K59.01 Constipation type: slow transit constipation Time Spent (min) 25 Comment 15 minutes spent with patient and additional 10 minutes spent reviewing her records
[2023-08-12 09:05] VITALS: BP 116/56; PULSE 83; BMI 28.3
== END 2023-08-12 09:19 | disposition home or self-care (01) ==
PROVIDERS: PCP Internal Medicine Geriatric Medicine; Visit Provider Nurse Practitioner Family
DX: K58.2 Mixed irritable bowel syndrome (principal); K21.9 Gastro-esophageal reflux disease without esophagitis; K59.01 Slow transit constipation
CPT/HCPCS: 99213

== ENCOUNTER → 2023-08-12 08:52 | Outpatient (BNVA) | payer OTHER, SELFPAY | PROVIDERS: PCP Internal Medicine Geriatric Medicine; Visit Provider Nurse Practitioner Family | DX: K59.01 Slow transit constipation (principal); K21.9 Gastro-esophageal reflux disease without esophagitis; K58.2 Mixed irritable bowel syndrome; Z79.891 Long term (current) use of opiate analgesic | CPT/HCPCS: 99212 ==

== ENCOUNTER 2023-08-13 13:15 | Outpatient (AMB) | payer OTHER, SELFPAY ==
--- NOTE | 2023-08-13 13:19 | A.OFFVIS_ITS ---
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 Patient continues to endorse neck pain with limited ROM, muscle spasms for which she has been taking Celebrex and heat with partial improvement. Patient has not started physical therapy yet. She also completed prednisone trial recently per PCP. Patient's main concern today is left elbow pain with radiation into left lower arm. Denies any numbness, tingling, or weakness. She denies any recent trauma, injury or falls. Previously seen by Orthopedics in 2022 and will follow up with them for elbow pain. Patient will also start physical therapy for neck pain and consider interventional treatments if no pain and function improvement after PT and home exercise program. Denies any recent cough, cold, infection, fever, any significant changes in her medical history, medications or recent hospitalizations. PRIOR: Patient presents today for follow up for acute left sided neck pain and muscle spasms. Denies any recent trauma, injury or falls. Reports she woke up with severe left sided neck pain one week ago with radiation to her left chest and left upper arm with numbness, burning and weakness. She reports she might have slept in a wrong position. Pain was so debilitating for her that she went for medical evaluation to ER on 07/18/23. Her cardiac work up was grossly normal and showed no acute findings. She was sent home with increased dose of methocarbamol. Patient reports she has been using heating pad, methocarbamol, Ibuprofen and taking her regular medication, Percocet and pregabalin without any relief. She presents with limited range of motion on her left side of the neck and significant muscle spasms and stiffness in her cervical paraspinals, trapezius, scalene and rhomboid muscles. Patient reports increased dyspnea on exertion and flare-up with COPD and seasonal allergies. Unfortunately she continues to smoke less than half a pack every day, not interested to quit at this time. Patient is on prednisone 5 mg daily. Denies any fever, chills, chest pain, visual disturbances, gait imbalances, bladder or bowel dysfunction or saddle anesthesia. PRIOR: Patient presents for 2nd application of capsaicin 8% topical patch for diabetic neuropathy in bilateral feet. Patient reports after first Qutenza application she had no pain in her feet for 14 days after which baseline numbness, tingling and burning returned, worse at night. Patient also continues to endorse low back pain that radiates into her left lower extremity laterally and anteriorly with stabbing and shooting pain. Reports methocarbamol has been effective and requests refill for this. We discussed interventional treatments for her axial and radicular symptoms. Patient is hesitant toward injections and is not candidate for therapeutic injections due to elevated A1C levels. Patient states she restarted prednisone taper yesterday for COPD exacerbation. She manages her blood sugars spikes with Insulin during prednisone intake. Reports A1C fluctuates 7.0-10.0. Denies cough, cold, infection, fever, bladder or bowel dysfunction or saddle anesthesia. Patient also reports she is planning to undergo ESWL procedure for kidney stones. PRIOR: Patient presents today for medication review. Patient reports methocarbamol 750 mg Q8H prn has been well tolerated and effective for her. We tried prescribing BID prn for past few month, patient reports she has noticied significant dis comfort with decreased dose. She is suffering from chronic back pain with left sided radiculopathy, lumbar post laminectomy syndrome, sacroiliac joint pain, painful diabetic neuropathy, muscle spasms and stiffness, kidney stones and more recently dealing with hyperthyroidism and multinodular goiter. She reports A1C>9.2 therefore is not candidate for therapeutic injections. Patient reports gabapentin has not been effective. She is also prescribed Percocet by her PCP which along with methocarbamol allows her to be less symptomatic and more functional. Denies any fever, bladder or bowel incontinence or saddle anesthesia. PRIOR: Patient presents today for follow up and medication discussion. Patient was initially seen on 10/07/21 without other follow ups. Patient reports she initiated physical therapy in summer 2021 but had to stop due to worsening pain and COVID illness. She was hospitalized twice last year in October and January 2022 for acute hypoxemic respiratory failure secondary to COVID and COPD exacerbation and was treated with nebs steroids, supplement oxygen with continued symptoms of post COVID sequelae. She continues to smoke and has been working on decreasing amount of daily cigarettes. Patient reports chronic low back pain with muscle stiffness and spasms that radiates into her left lower extremity laterally to the dorsum of left foot and toes with numbness and tin gling. Reports worsening of pain with lumbar flexion as well as prolonged walking forward bending, changing positions and cold and rainy weather changes. Her axial back pain has been minimal. She is insulin dependent diabetic with noted elevation of blood sugars during January and February due to inhaled and oral steroid intake for COPD and COVID illness few month ago. Patient reports next follow up with her PCP in 2 weeks with recheck of A1C. If her AIC 8.5, we will consider Left L4-L5 TFESI. She has been taking gabapentin 300 mg tid prn and oxycodone prn for severe pain with partial relief. This is prescribed by her PCP. Methocarbamol has been effective for muscle spasms without noted side effects. Lumbar spine MRI in 2019 were reviewed with patient today and is noted below. Patient denies any fever, chest pain, shortness of breaths, abdominal or groin pain, bladder or bowel incontinence or saddle anesthesia. PRIOR 10/07/21: Patient is a pleasant 60 year old female with back surgery a year ago by Dr. Whelan presents today with lower back pain that radiates into her left lower extremity laterally with numbness and tingling in her left foot. She reports walking has improved after back surgery but muscle spasms have been ?terrifying and not controllable.? Patient states her back pain also travels upwards toward mid back and in between shoulder blades. Pain is described as constant aching, pins and needles, throbbing, burning, and spasming sensations which worsen during the evenings and middle of the night with highest pain intensity at 9/10. Patient reports her pain is increased with walking over 20 minutes, prolonged sitting or standing. She cannot get comfortable during the night and has been sleeping poorly. She has been trying to control her pain with tizanidine and Percocet 7.5-325 mg QID prn with continued symptoms. Patient has received lumbar injection x1 prior to back surgery with only one week of pain relief. She completed physical therapy with a TENS unit and weighted ice packs with mild to moderate improvements. No MRIs or lumbar x rays were done after back surgery per patient. She is interested in neuromodulation treatment modalities but would lik e to restart physical therapy and obtain her personal TENS unit. Patient denies any fever, chills, malaise, abdominal or groin pain, weakness, bowel/bladder incontinence or saddle anesthesia. She ambulates with normal gait without assisting devices. [facility] Medical History History of back pain History of neuropathy Smokes tobacco daily Opioid dependence Nephrolithiasis Hyperlipidemia HTN (hypertension) Cardiomyopathy Myocardial infarction CAD (coronary artery disease) Cough Hypothyroidism, postsurgical Tubular adenoma Diabetes MCKAY (obstructive sleep apnea) Irritable bowel syndrome Hyperthyroidism Polycythemia Smoker Hypoxia COPD exacerbation Lesion of bronchus Tracheal anomaly Multinodular goiter Vitamin D deficiency Atelectasis Subclinical hyperthyroidism Goiter Pneumonia Pulmonary nodules COPD (chronic obstructive pulmonary disease) Surgical History History of coronary artery stent placement Hx of thyroidectomy History of thyroid surgery History of esophagogastroduodenoscopy (EGD) Hx of colonoscopy History of back surgery History of ureterostomy S/P lumpectomy, right breast History of cholecystectomy History of tonsillectomy Family History Father No problems noted. Mother No problems noted. Paternal Aunt Diabetes Social History Household Members: Spouse Housing: House Do you presently have visiting nurse or other home services: No Alcohol intake: never Comment: pt refused bed alarm/camera Patient Tobacco Use Status: Current everyday Tobacco user Tobacco use type: Cigarette Cigarette Packs Per Day: 0.5 Cigarettes Per Day: 6 e-Cigarette/Vaping Use: Never Used Second Hand Smoke Exposure: Yes Substance Use Type: Marijuana Advance Directives Date on File: 01/24/21 service: No Current occupational status: disabled Review of Systems Const All systems reviewed & are unremarkable except as noted in HPI and below ENT Reports Normal hearing present Neuro Reports Normal hearing present, Denies Abnormal speech present and Denies Sensory deficit (Neuro) Physical Exam Vital Signs: Last Vital Signs Pulse 87 08/13/23 13:23 BP 167/76 H 08/13/23 13:23 Pulse Ox 96 08/13/23 13:23 Oxygen Delivery Method Room Air 08/13/23 13:23 BMI result Body Mass Index 28.3 General: Appears afebrile. Strong tobacco odor. Alert and oriented. Mood and affect appropriate. Follows and participates in conversation appropriately. Respiratory effort is unlabored. No cough. Able to transition from sit to stand unassisted. Ambulates with bilaterally normal heel strike and toe off. Neck Neck: Yes no lymphadenopathy, Yes supple, No anterior neck swelling, No torticollis, No tracheal deviation, Yes no JVD and Yes prominent dorsocervical fat pad Back/Spine/Pelvis Cervical Spine: No Lhermitte's sign positive, loss of normal cervical lordosis, cervical muscular tenderness, pain with cervical ROM, No Cervical spine tenderness and No step off deformity Thoracic/Lumbar Spine: thoracic and lumbar spine normal to inspection, Lasegue's sign negative, straight leg raise negative bilaterally, paraspinal muscle tenderness on the left greater than right, thoracic spinal tenderness (upper thoracic) and lumbar spinal tenderness at L4 and at L5 Neuro General: moves all extremities, Normal light touch and pain sensation, no focal motor deficits and CN's II-XI intact bilaterally Cranial nerves: Yes Normal hearing present and Yes Ability to bilaterally elevate shoulders present Cognition (Neuro): normal cognition Speech: No Abnormal speech present Gait exam (Neuro): Antalgic gait present and No Assistive device used Motor exam (neuro): 5/5 motor strength present throughout, Pronator motor function not present, no tremor noted and Motor abnormalities not present Sensory Exam: No Sensory deficit (Neuro) Extrem General: Yes capillary refill normal, Yes no clubbing, cyanosis or edema and Yes no calf tenderness Left upper extremity: elbow/forearm Details: normal to inspection, tenderness Location: of the lateral epicondyle and of the proximal forearm, normal ROM and distal pulses intact; no swelling, no unusual warmth and no crepitus Quality Reporting (2019) Adult ([facility] 138/05/21/68) Smoking risk assessment performed?: Yes Patient Tobacco Use Status: Current everyday Tobacco user Results Reviewed Results Reviewed: XR CERVICAL SPINE XR DORSAL SPINE 07/24/23 CLINICAL INFORMATION: Radiculopathy cervical region. COMPARISON: None. TECHNIQUE: 3 views of the dorsal spine. 6 views of the cervical spine. FINDINGS: Cervical spine: Vertebral bodies normally aligned. There are prominent bridging osteophytes along the anterior aspect of the C5-C6 levels. Mild degenerative disc changes at the C4-C5, C5-C6 and C6-C7 levels manifested by endplate osteophytes. Facets unremarkable. No bony encroachment on the neural foramina. Surgical clips noted anterior to the cervical spine. Dorsal spine: Vertebral bodies normal in height, normally aligned. Multilevel degenerative disc changes manifested by endplate osteophytes and disc space narrowing. Surrounding bone and soft tissues unremarkable. IMPRESSION: 1. Cervical spine: Mild multilevel degenerative changes of the cervical spine. 2. Dorsal spine: Mild multilevel spondylosis. Assessment & Plan Assessment & Plan (1) Cervical spondylosis: Code(s): M47.812 - Spondylosis without myelopathy or radiculopathy, cervical region Category: Medical (2) Muscle spasms of neck: Code(s): M62.838 - Other muscle spasm Category: Medical (3) Left elbow pain: Code(s): M25.522 - Pain in left elbow Category: Medical Plan Cervical and thoracic spine xray results were discussed with patient today. Recommend to start formal physical therapy for left sided neck pain, muscle spasms and stiffness. Script provided. Continue Celebrex, lidocaine patches, stretching exercises, heat therapy and good posture. If no relief after course of PT, will consider interventional treatments. Patient will follow up with Orthopedic provider for left elbow pain. All questions and concerns were answered and the patient agreed with the plan. Follow up after PT and sooner as needed. Coding Level of Care Code Est Pt Level 4 (83936) Diagnoses Cervical spondylosis M47.812 Muscle spasms of neck M62.838 Left elbow pain M25.522
[2023-08-13 13:23] VITALS: BP 167/76; PULSE 87; O2SAT 96; BMI 28.3
== END 2023-08-13 13:43 | disposition home or self-care (01) ==
PROVIDERS: PCP Internal Medicine Geriatric Medicine; Visit Provider Nurse Practitioner Family
DX: M47.812 Spondylosis without myelopathy or radiculopathy, cervical region (principal); M62.838 Other muscle spasm; M25.522 Pain in left elbow
CPT/HCPCS: 99214

== ENCOUNTER → 2023-08-13 13:15 | Outpatient (BNVA) | payer OTHER, SELFPAY | PROVIDERS: PCP Internal Medicine Geriatric Medicine; Visit Provider Nurse Practitioner Family | DX: M47.812 Spondylosis without myelopathy or radiculopathy, cervical region (principal); M62.838 Other muscle spasm; M25.522 Pain in left elbow | CPT/HCPCS: 99212 ==

== ENCOUNTER 2023-08-17 12:36 | Outpatient (AMB) | payer OTHER, SELFPAY ==
--- NOTE | 2023-08-17 12:42 | MHC.OFFVIS ---
Vital Signs 08/17/23 12:54 Height 5 ft 5 in Weight 170 lb BMI 28.3 Handedness Ambidextrous Intake Visit Reasons: Newprob-severe left elbow/arm pain Intake Note: Marita is a 62 year old right hand dominant female who presents today for a evaluation of her left elbow pain. Patient reports having this pain for about 3 weeks ago. She states that she thought she was having a heart attack about 3 weeks ago so when she went to the ED they told her that it might be a pinched nerve. Patient does have bruising where her pain is. Allergies HANK Inhibitors [HANK INHIBITORS] Allergy (Severe, Verified 08/13/23 13:24) ANGIO EDEMA enalapril Allergy (Severe, Verified 08/13/23 13:24) Anaphylaxis erythromycin base [ERYTHROMYCIN BASE] Allergy (Severe, Verified 08/13/23 13:24) HIVES ALL OVER hydromorphone [From DILAUDID] Adverse Reaction (Severe, Verified 08/13/23 13:24) TINGLING, PT DOES NOT LIKE THE FEELING MED GIVES HER HPI HPI Newprob-severe left elbow/arm pain: Details: 62-year-old right hand dominant female who presents in the office today for an evaluation of left elbow pain. Patient presented to the ED on 07/18/2023 with a complaint of left sided neck pain radiating to her left shoulder and extending down the entire upper extremity. Patient reports having pain in the left elbow for about 3 weeks. She denies ecchymosis where the pain is located. Patient reports 3 weeks ago she felt like she was having a heart attack and presented to the ED. She states she was told she has pinched nerve. [facility] Medical History History of back pain History of neuropathy Smokes tobacco daily Opioid dependence Nephrolithiasis Hyperlipidemia HTN (hypertension) Cardiomyopathy Myocardial infarction CAD (coronary artery disease) Cough Hypothyroidism, postsurgical Tubular adenoma Diabetes MCKAY (obstructive sleep apnea) Irritable bowel syndrome Hyperthyroidism Polycythemia Smoker Hypoxia COPD exacerbation Lesion of bronchus Tracheal anomaly Multinodular goiter Vitamin D deficiency Atelectasis Subclinical hyperthyroidism Goiter Pneumonia Pulmonary nodules COPD (chronic obstructive pulmonary disease) Surgical History History of coronary artery stent placement Hx of thyroidectomy History of thyroid surgery History of esophagogastroduodenoscopy (EGD) Hx of colonoscopy History of back surgery History of ureterostomy S/P lumpectomy, right breast History of cholecystectomy History of tonsillectomy Family History Father No problems noted. Mother No problems noted. Paternal Aunt Diabetes Social History Household Members: Spouse Housing: House Do you presently have visiting nurse or other home services: No Alcohol intake: never Comment: pt refused bed alarm/camera Patient Tobacco Use Status: Current everyday Tobacco user Tobacco use type: Cigarette Cigarette Packs Per Day: 0.5 Cigarettes Per Day: 6 e-Cigarette/Vaping Use: Never Used Second Hand Smoke Exposure: Yes Substance Use Type: Marijuana Advance Directives Date on File: 01/24/21 service: No Current occupational status: disabled Review of Systems Const All systems reviewed & are unremarkable except as noted in HPI and below Physical Exam Vital Signs: BMI result Body Mass Index 28.3 Const General: cooperative and no acute distress Orientation/consciousness: patient oriented x3 Resp Effort & Inspection: normal respiratory effort and able to speak in complete sentences Cardio Peripheral pulses: Peripheral pulses 2+ throughout Skin General skin exam: no rashes or lesions noted Neuro General: patient oriented x3 Extrem Other: Left elbow: Normal to inspection. No ecchymosis, erythema, or edema. No tenderness to palpation over the olecranon. No tenderness to the medial epicondyle. Tenderness to palpation over the lateral epicondyle. Positive Tinel?s at the cubital and carpal tunnel. Pain at the lateral epicondyle with resisted wrist extension. NVI. Quality Reporting (2020) Adult ([facility] 138/05/21/68) Smoking risk assessment performed?: Yes Patient Tobacco Use Status: Current everyday Tobacco user Assessment & Plan Assessment & Plan (1) Cubital tunnel syndrome on left: Code(s): G56.22 - Lesion of ulnar nerve, left upper limb Category: Medical Plan Ms. Ashley Lawrence is a 62-year-old right hand dominant female who presents in the office today for an evaluation of left elbow pain. Patient presented to the ED on 07/18/2023 with a complaint of left sided neck pain radiating to her left shoulder and extending down the entire upper extremity. Patient reports having pain in the left elbow for about 3 weeks. She denies ecchymosis where the pain is located. Patient reports 3 weeks ago she felt like she was having a heart attack and presented to the ED. She states she was told she has pinched nerve. An order for an EMG study was placed in the office today. The patient will contact the office once the EMG is obtained. Follow up will be after the EMG, or sooner if needed. X-rays of the left elbow which were obtained while in the office today and were reviewed by me, Ashleigh Lombardi PA-C, revealed No acute fractures or dislocation. Orders: Orders XR elbow LT min 3V 08/17/23 M25.529 - Pain in unspecified elbow NE electromyogram (EMG) 08/17/23 M25.522 - Pain in left elbow, M54.12 - Radiculopathy, cervical region Patient Instructions: Scribed by Catalina Cesar medical esthetician, for Ashleigh Lombardi PA-C on 08/17/2023 at 12:50 pm, EST. Coding Level of Care Code New Pt Level 4 (77826) Diagnoses Cubital tunnel syndrome on left G56.22
[2023-08-17 12:54] VITALS: BMI 28.3
== END 2023-08-17 14:50 | disposition home or self-care (01) ==
PROVIDERS: PCP Internal Medicine Geriatric Medicine; Visit Provider Physician Assistant
DX: G56.22 Lesion of ulnar nerve, left upper limb (principal)
CPT/HCPCS: 99214

== ENCOUNTER 2023-08-17 14:35 | Outpatient (REF) | payer OTHER, SELFPAY ==
--- NOTE | ~2023-08-17 | XR_ITS ---
EXAMINATION: XR ELBOW, LEFT CLINICAL INFORMATION: Pain in the left elbow COMPARISON: None available. TECHNIQUE: AP, lateral, and oblique views of the left elbow. FINDINGS: The bones and soft tissues are normal. No fracture or joint effusion. Alignment is anatomic. Joint spaces are maintained. XR/XR elbow LT min 3V IMPRESSION: Normal left elbow.
== END 2023-08-17 14:36 | disposition home or self-care (01) ==
LOC: HO.HOSX 14:35
PROVIDERS: Visit Provider Physician Assistant
DX: M25.522 Pain in left elbow (principal); M79.602 Pain in left arm; M54.12 Radiculopathy, cervical region; G56.22 Lesion of ulnar nerve, left upper limb
CPT/HCPCS: 73080; 99212

== ENCOUNTER 2023-08-21 13:22 | Outpatient (REF) | payer OTHER, SELFPAY ==
--- NOTE | 2023-08-21 13:24 | EMG_ITS ---
Chief complaint: 2 months acute onset left arm/elbow pain with numbness on 4th and 5th digits Reason for referral: Evaluate for ulnar neuropathy versus radiculopathy Referred by: Ashleigh CABRERA Procedure done: Left upper extremity NCS/EMG Precautions and/or limitations: None The limb temperature was monitored continuously and remained between 32-36 degrees C during the performance of the NCS. Ulnar motor NCS was performed with moderate elbow flexion between 70-90 degrees, with across-elbow distance of 10 cm. Nerve Conduction Studies Anti Sensory Summary Table ?Stim Site NR Onset (ms) Norm Onset (ms) Peak (ms) Norm Peak (ms) O-P Amp (?V) Norm O-P Amp Site1 Site2 Delta-0 (ms) Dist (cm) Will (m/s) Norm Will (m/s) Left Median Anti Sensory (2nd Digit) Wrist ? 2.1 3.6 <3.6 13.8 >10 Wrist 2nd Digit 2.1 14.0 67 Left Radial Anti Sensory (Thumb) Forearm ? 1.8 2.3 <3.1 9.5 Forearm Thumb 1.8 0.0 Left Ulnar Anti Sensory (5th Digit) Wrist NR <3.7 >15.0 Wrist 5th Digit 14.0 Motor Summary Table ?Stim Site NR Onset (ms) Norm Onset (ms) O-P Amp (mV) Norm O-P Amp iAmp (mV) Amp (1st) (%) Site1 Site2 Delta-0 (ms) Dist (cm) Will (m/s) Norm Will (m/s) Left Median Motor (Abd Poll Brev) Wrist ? 3.4 <3.9 9.2 >4.5 12.7 100.0 Elbow Wrist 3.8 19.5 51 >45 Elbow ? 7.2 9.1 13.1 98.9 Left Ulnar Motor (Abd Dig Minimi) Wrist ? 3.4 <3.0 1.1 >5 1.3 100.0 B Elbow Wrist 3.6 17.0 47 >45 B Elbow ? 7.0 1.2 1.7 109.1 A Elbow B Elbow 3.4 10.0 29 >45 A Elbow ? 10.4 1.2 1.7 109.1 EMG ?Side Muscle Nerve Root Ins Act Fibs Psw Amp Dur Poly Recrt Int Pat Comment Left 1stDorInt Ulnar C8-T1 Nml Nml Nml Nml Nml 0 Reduced Complete Left Biceps Musculocut C5-6 Nml Nml Nml Nml Nml 0 Nml Complete Left Triceps Radial C6-7-8 Nml Nml Nml Nml Nml 0 Nml Complete Left Deltoid Axillary C5-6 Nml Nml Nml Nml Nml 0 Nml Complete Left FlexCarpiUln Ulnar C8,T1 Nml Nml Nml Nml Nml 0 Nml Complete Paraspinal EMG ?Side Muscle Nerve Root Ins Act Fibs Psw Comment Left Cervical Upper Rami Nml Nml Nml Left Cervical Mid Rami Nml Nml Nml Left Cervical Lower Rami Nml Nml Nml FINDINGS: Left ulnar motor nerve showed prolonged distal latency, very small amplitudes and slow conduction velocity across the elbow. Left ulnar sensory nerve absent response. All other nerves tested were within normal. Concentric needle EMG was performed in selected muscles of the left upper extremity and cervical paraspinals. Study revealed signs of electric abnormalities as shown in the table below. Left FDI showed reduced recruitment. IMPRESSION: 1. This is an abnormal study. 2. There is electrodiagnostic evidence for acute left ulnar neuropathy at the elbow. 3. There is no electrodiagnostic evidence for median neuropathy, brachial plexopathy, or cervical radiculopathy. Thank you for your kind referral. Idalia Blanton MD, KAN Board Certified, [place] [employer] and Rehabilitation (ABPMR) Board Certified, [place] Board [employer] Electrodiagnostic Medicine (ABEM) CODIN [id number] MTDD
== END 2023-08-21 13:23 | disposition home or self-care (01) ==
LOC: HO.NEURO 13:22
PROVIDERS: PCP Internal Medicine Geriatric Medicine; Visit Provider Physician Assistant
DX: M25.522 Pain in left elbow (principal); M54.12 Radiculopathy, cervical region
CPT/HCPCS: 95886; 95909

== ENCOUNTER → 2023-08-21 13:24 | Outpatient (BNV) | payer OTHER, SELFPAY | PROVIDERS: PCP Internal Medicine Geriatric Medicine; Visit Provider Physical Medicine & Rehabilitation | DX: G56.22 Lesion of ulnar nerve, left upper limb (principal) | CPT/HCPCS: 95886; 95909 ==

== ENCOUNTER 2023-08-26 10:37 | Outpatient (AMB) | payer MEDICARE, SELFPAY ==
[2023-08-26 10:44] VITALS: BP 136/78; PULSE 64; BMI 28.9
--- NOTE | 2023-08-26 10:44 | A.OFFVIS_ITS ---
Vital Signs 08/26/23 10:44 Height 5 ft 5 in Weight 173 lb 11.588 oz BMI 28.9 BP 136/78 Blood Pressure Location Rt brachial Position Sitting Pulse 64 Pulse Source Pulse Oximeter Intake Visit Reasons: f/u post-operative hypothyroidism Intake Note: Patient present today for Post-operative hypothyroidism follow up visit. Flight Attendant/Inflight Supervisor Required: No Accompanied by: Self / Same As Patient Allergies HANK Inhibitors [HANK INHIBITORS] Allergy (Severe, Verified 08/26/23 10:48) ANGIO EDEMA enalapril Allergy (Severe, Verified 08/26/23 10:48) Anaphylaxis erythromycin base [ERYTHROMYCIN BASE] Allergy (Severe, Verified 08/26/23 10:48) HIVES ALL OVER hydromorphone [From DILAUDID] Adverse Reaction (Severe, Verified 08/26/23 10:48) TINGLING, PT DOES NOT LIKE THE FEELING MED GIVES HER Medication List - Last Reconciled 08/26/23 by Brooks Goldberg MD aspirin 81 mg PO BEDTIME atorvastatin 80 mg See Protocol PO BEDTIME blood sugar diagnostic (FreeStyle Lite Strips) As directed calcium citrate-vitamin D3 315 mg-6.25 mcg (250 unit) 2 tabs PO QID carvedilol 6.25 mg PO BID celecoxib (Celebrex) 200 mg PO BID PRN cetirizine 10 mg PO DAILY cholecalciferol (vitamin D3) (Vitamin D3) 50 mcg PO DAILY docusate sodium 1 cap PO BID dulaglutide (Trulicity) 1.5 mg subcut REESE@0900 fluticasone propionate 50 mcg/actuation 1 spray intranasal DAILY PRN [id number]-nwssmjvt 100-62.5-25 mcg (Trelegy Ellipta) 1 ea inhalation DAILY insulin glargine (Lantus Solostar U-100 Insulin) 30 units (0.3 mL) subcut BID insulin lispro (Humalog KwikPen (U-100) Insulin) 1 sliding scale dose See Protocol subcut TIDAC ipratropium-albuterol 0.5 mg-3 mg(2.5 mg base)/3 mL 3 mL inhalation QID PRN ipratropium-albuterol 20-100 mcg/actuation (Combivent Respimat) 2 puffs inhalation BID lancets (TRUEplus Lancets) As directed levothyroxine 112 mcg PO DAILY levothyroxine 125 mcg PO DAILY lidocaine 5% leave on most painful area for up to 12 hrs topically daily; methocarbamol 1,000 mg (2 x 500 mg) PO BID-TID PRN 30 days montelukast 10 mg PO BEDTIME naloxone 4 mg/actuation 1 spray intranasal ONCE PRN nebulizers As directed omeprazole 20 mg PO BID@0630,1630 oxycodone-acetaminophen 7.5-325 mg 1 tab PO Q6H phenazopyridine (Pyridium) 100 mg PO TID PRN 4 days prednisone 5 mg PO DAILY pregabalin (Lyrica) 75 mg PO BID pregabalin 75 mg PO BID 30 days pyridoxine (vitamin B6) 50 mg PO DAILY 90 days roflumilast 250 mcg PO DAILY sennosides (senna) 17.2 mg PO BEDTIME PRN tamsulosin 0.4 mg PO BEDTIME 14 days Ventolin HFA 90 mcg/actuation (albuterol sulfate) 2 puffs inhalation Q4-6H PRN NS HPI Comments Details: 62 YO Female with a PMHx of a toxic MNG who is seen in F/U for the same. Per Dr. Carmen's records she had a prior thyroid uptake and scan which revealed uptake WNL, but with a heterogenous pattern consistent with toxic nodules. She had subclinical hyperthyroidism and was started on Methimazole 5 mg PO daily. She was however on Prednisone at that time. She was able to be weaned off the prednisone and the methimazole was stopped. Her TFTs initially normalized, but then she became hyperthyroid again. Labs at that time revealed all antibodies to be negative. Thyroid uptake and scan completed 12/27/2021 revealed 24 hour uptake of 38.9%. The gland was diffusely enlarged with multiple areas of decreased uptake in the bilateral lower poles and increased uptake within the bilateral upper poles. Trapping was moderately increased diffusely. This was thought to represent a toxic MNG. US did confirm a multinodular thyroid. She was scheduled for FNA biopsy of the cold appearing areas, but this was rescheduled on mulitple occasions and she still has yet to complete this. She has COPD and remains on Prednisone daily. She overall has no complaints today. Thyroid US: 12/27/2020 Right Thyroid Lobe: 5.6 x 3.1 x 3.6 cm, volume 32.7 mL. Previously 5.2 x 2.4 x 3.4 cm, volume 23.0 mL. Parenchyma: The gland echotexture is heterogeneous. Thyroid vascularity is normal. Left Thyroid Lobe: 6.5 x 3.0 x 3.4 cm, volume 34.7 mL. Previously 5.7 x 1.9 x 2.8 cm, volume 15.9 mL. Parenchyma: The gland echotexture is heterogeneous. Thyroid vascularity is normal. Isthmus: 0.6 cm in maximum AP dimension. Previously 0.5 cm. Estimated total number of nodules greater than or equal to 1 cm: 1. Appliance Mechanic nodules are described as follows: 1.? Location: Left mid. ?? ? Size: 0.8 x 0.6 x 0.5 cm, volume 0.12 mL. ?? ? Previously: 0.7 x 0.6 x 0.8 cm, volume 0.18 mL. ?? ? Nodule characteristics: ?? ? Composition: Solid/almost completely solid (2). ?? ? Echogenicity: Hypoechoic (2). ?? ? Shape: Not taller than wide (0). ?? ? Margins: Smooth (0). ?? ? Echogenic Foci: None (0). ? ACR TI-RADS total points: 4 ?? ? ACR TI-RADS category: 4 ? Significant change in size (>/= 20% in 2 dimensions and minimal increase of 2 mm or 50% or greater increase in volume): ?? ? Change in features: ?? ? Change in ACR TI-RADS risk category: 2.? Location: Left superior. ?? ? Size: 0.6 x 0.7 x 0.3 cm, volume 0.07 mL. ?? ? Previously: 0.6 x 0.4 x 0.6 cm, volume 0.08 mL. ?? ? Nodule characteristics: ?? ? Composition: Solid (2). ?? ? Echogenicity: Hypoechoic (2). ?? ? Shape: Not taller than wide (0). ?? ? Margins: Smooth (0). ?? ? Echogenic Foci: None (0). ? ACR TI-RADS total points: 4 ?? ? ACR TI-RADS category: 4 ?? ? Significant change in size (>/= 20% in 2 dimensions and minimal increase of 2 mm or 50% or greater increase in volume): ?? ? Change in features: ?? ? Change in ACR TI-RADS risk category: 3.? Location: Right inferior. ?? ? Size: 1.8 x 1.8 x 1.7 cm, volume 2.88 mL. ?? ? Previously: Not seen on the prior study. Appreciable nodule versus area of gland heterogeneity. ?? ? Nodule characteristics: ?? ? Composition: Solid (2). ?? ? Echogenicity: Hypoechoic (2). ?? ? Shape: Not taller than wide (0). ?? ? Margins: Smooth (0). ?? ? Echogenic Foci: None (0). ? ACR TI-RADS total points: 4 ?? ? ACR TI-RADS category: 4 ?? ? Significant change in size (>/= 20% in 2 dimensions and minimal increase of 2 mm or 50% or greater increase in volume): ?? ? Change in features: ?? ? Change in ACR TI-RADS risk category: 4.? Location: Right mid. ?? ? Size: 0.6 x 0.4 x 0.3 cm, volume 0.04 mL. ?? ? Previously: 0.6 x 0.5 x 0.6 cm, volume 0.09 mL. ?? ? Nodule characteristics: ?? ? Composition: Solid (2). ?? ? Echogenicity: Hypoechoic (2). ?? ? Shape: Not taller than wide (0). ?? ? Margins: Smooth (0). ?? ? Echogenic Foci: None (0). ? ACR TI-RADS total points: 4 ?? ? ACR TI-RADS category: 4 ?? ? Significant change in size (>/= 20% in 2 dimensions and minimal increase of 2 mm or 50% or greater increase in volume): ?? ? Change in features: ?? ? Change in ACR TI-RADS risk category: NODES: No lymphadenopathy is seen in the tissue surrounding the thyroid gland. Thyroid Uptake and Scan: 12/27/2021 FINDINGS: The uptake is 16.2% at 4 hours and 38.9% at 24 hours (Normal radioiodine uptake at 24 hours is 10% to 30%). The radioiodine uptake is mildly elevated. The radiopertechnetate thyroid scintigram demonstrates the thyroid gland to be moderately enlarged, proximal 3-4 times normal in size. There is some heterogeneity within the gland with a suggestion of ovoid shaped foci of decreased activity in both lower poles and a small subcentimeter focus of relatively increased activity in the upper pole of the right lobe. The overall trapping function is moderately increased diffusely. A single anterior radioiodine image obtained at the time of the 24-hour uptake is similar to the radio pertechnetate image except the small subcentimeter focus of relatively increased activity in the upper pole of the right lobe is not present. Labs: Laboratory Tests 06/18/22 06/18/22 10:28 10:28 25-OH Vitamin D Total 32.7 TSH 0.19 L Free T4 1.44 Total T3 143 Status post total thyroidectomy on 12/31/2022 with benign pathology. Patient is currently on levothyroxine 112 mcg [facility] Medical History History of back pain History of neuropathy Smokes tobacco daily Opioid dependence Nephrolithiasis Hyperlipidemia HTN (hypertension) Cardiomyopathy Myocardial infarction CAD (coronary artery disease) Cough Hypothyroidism, postsurgical Tubular adenoma Diabetes MCKAY (obstructive sleep apnea) Irritable bowel syndrome Hyperthyroidism Polycythemia Smoker Hypoxia COPD exacerbation Lesion of bronchus Tracheal anomaly Multinodular goiter Vitamin D deficiency Atelectasis Subclinical hyperthyroidism Goiter Pneumonia Pulmonary nodules COPD (chronic obstructive pulmonary disease) Surgical History History of coronary artery stent placement Hx of thyroidectomy History of thyroid surgery History of esophagogastroduodenoscopy (EGD) Hx of colonoscopy History of back surgery History of ureterostomy S/P lumpectomy, right breast History of cholecystectomy History of tonsillectomy Family History Father No problems noted. Mother No problems noted. Paternal Aunt Diabetes Social History Household Members: Spouse Housing: House Do you presently have visiting nurse or other home services: No Alcohol intake: never Comment: pt refused bed alarm/camera Patient Tobacco Use Status: Current everyday Tobacco user Tobacco use type: Cigarette Cigarette Packs Per Day: 0.5 Cigarettes Per Day: 6 e-Cigarette/Vaping Use: Never Used Second Hand Smoke Exposure: Yes Substance Use Type: Marijuana Advance Directives Date on File: 01/24/21 service: No Current occupational status: disabled Physical Exam Const Other: Healed scar status post thyroidectomy Quality Reporting (2019) Adult ([facility] 138/05/21/68) Smoking risk assessment performed?: Yes Patient Tobacco Use Status: Current everyday Tobacco user Assessment & Plan Assessment & Plan (1) Hypothyroidism, postsurgical: Code(s): E89.0 - Postprocedural hypothyroidism Category: Medical Plan: This 62-year-old white female with a history of multinodular goiter toxic status post total thyroidectomy with benign pathology. She is currently be replaced with 112 mcg levothyroxine. She appears to be clinically euthyroid had an elevated TSH on 06/19/2023 Plan is have the patient verify that she is taking 125 mcg of levothyroxine. Assuming she is, she will check a TSH and free T4 and adjust levothyroxine accordingly Orders: Orders Free T4 (Free Thyroxine) Today E89.0 - Postprocedural hypothyroidism Thyroid Stimulating Hormone Today E89.0 - Postprocedural hypothyroidism Medications: Discontinued levothyroxine Discontinued Reason: Doctor's Order 112 mcg PO DAILY 30 tabs 2RF Coding Level of Care Code Est Pt Level 3 (80927) Diagnoses Hypothyroidism, postsurgical E89.0
== END 2023-08-26 11:07 | disposition home or self-care (01) ==
PROVIDERS: PCP Internal Medicine Geriatric Medicine; Visit Provider Internal Medicine Endocrinology, Diabetes & Metabolism
DX: E89.0 Postprocedural hypothyroidism (principal)
CPT/HCPCS: 99213

== ENCOUNTER → 2023-08-26 10:37 | Outpatient (BNVA) | payer OTHER, SELFPAY | PROVIDERS: PCP Internal Medicine Geriatric Medicine; Visit Provider Internal Medicine Endocrinology, Diabetes & Metabolism | DX: E89.0 Postprocedural hypothyroidism (principal) | CPT/HCPCS: 99212 ==

== ENCOUNTER 2023-08-27 10:26 | Outpatient (AMB) | payer OTHER, SELFPAY ==
--- NOTE | 2023-08-27 10:28 | A.OFFVIS_ITS ---
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 Denies any recent cough, cold, infection, fever or other significant changes in medical history since last office visit. Patient continues to endorse left elbow pain. She was seen by our Orthopedic colleagues and completed Neurodiagnostic study on 08/21/23 noted for acute left ulnar neuropathy. Patient reports she has upcoming follow up with Orthopedics for next steps for ongoing left elbow pain. PRIOR: Patient presents today for follow up for acute left sided neck pain and muscle spasms. Denies any recent trauma, injury or falls. Reports she woke up with severe left sided neck pain one week ago with radiation to her left chest and left upper arm with numbness, burning and weakness. She reports she might have slept in a wrong position. Pain was so debilitating for her that she went for medical evaluation to ER on 07/18/23. Her cardiac work up was grossly normal and showed no acute findings. She was sent home with increased dose of methocarbamol. Patient reports she has been using heating pad, methocarbamol, Ibuprofen and taking her regular medication, Percocet and pregabalin without any relief. She presents with limited range of motion on her left side of the neck and significant muscle spasms and stiffness in her cervical paraspinals, trapezius, scalene and rhomboid muscles. Patient reports increased dyspnea on exertion and flare-up with COPD and seasonal allergies. Unfortunately she continues to smoke less than half a pack every day, not interested to quit at this time. Patient is on prednisone 5 mg daily. Denies any fever, chills, chest pain, visual disturbances, gait imbalances, bladder or bowel dysfunction or saddle anesthesia. PRIOR: Patient presents for 2nd application of capsaicin 8% topical patch for diabetic neuropathy in bilateral feet. Patient reports after first Qutenza application she had no pain in her feet for 14 days after which baseline numbness, tingling and burning returned, worse at night. Patient also continues to endorse low back pain that radiates into her left lower extremity laterally and anteriorly with stabbing and shooting pain. Reports methocarbamol has been effective and requests refill for this. We discussed interventional treatments for her axial and radicular symptoms. Patient is hesitant toward injections and is not candidate for therapeutic injections due to elevated A1C levels. Patient states she restarted prednisone taper yesterday for COPD exacerbation. She manages her blood sugars spikes with Insulin during prednisone intake. Reports A1C fluctuates 7.0-10.0. Denies cough, cold, infection, fever, bladder or bowel dysfunction or saddle anesthesia. Patient also reports she is planning to undergo ESWL procedure for kidney stones. PRIOR: Patient presents today for medication review. Patient reports methocarbamol 750 mg Q8H prn has been well tolerated and effective for her. We tried prescribing BID prn for past few month, patient reports she has noticied significant discomfort with decreased dose. She is suffering from chronic back pain with left sided radiculopathy, lumbar post laminectomy syndrome, sacroiliac joint pain, painful diabetic neuropathy, muscle spasms and stiffness, kidney stones and more recently dealing with hyperthyroidism and multinodular goiter. She reports A1C>9.2 therefore is not candidate for therapeutic injections. Patient reports gabapentin has not been effective. She is also prescribed Percocet by her PCP which along with methocarbamol allows her to be less symptomatic and more functional. Denies any fever, bladder or bowel incontinence or saddle anesthesia. PRIOR: Patient presents today for follow up and medication discussion. Patient was initially seen on 10/07/21 without other follow ups. Patient reports she initiated physical therapy in summer 2021 but had to stop due to worsening pain and COVID illness. She was hospitalized twice last year in October and January 2022 for acute hypoxemic respiratory failure secondary to COVID and COPD exacerbation and was treated with nebs steroids, supplement oxygen with continued symptoms of post COVID sequelae. She continues to smoke and has been working on decreasing amount of daily cigarettes. Patient reports chronic low back pain with muscle stiffness and spasms that radiates into her left lower extremity laterally to the dorsum of left foot and toes with numbness and tingling. Reports worsening of pain with lumbar flexion as well as prolonged walking forward bending, changing positions and cold and rainy weather changes. Her axial back pain has been minimal. She is insulin dependent diabetic with noted elevation of blood sugars during January and February due to inhaled and oral steroid intake for COPD and COVID illness few month ago. Patient reports next follow up with her PCP in 2 weeks with recheck of A1C. If her AIC 8.5, we will consider Left L4-L5 TFESI. She has been taking gabapentin 300 mg tid prn and oxycodone prn for severe pain with partial relief. This is prescribed by her PCP. Methocarbamol has been effective for muscle spasms without noted side effects. Lumbar spine MRI in 2019 were reviewed with patient today and is noted below. Patient denies any fever, chest pain, shortness of breaths, abdominal or groin pain, bladder or bowel incontinence or saddle anesthesia. PRIOR 10/07/21: Patient is a pleasant 60 year old female with back surgery a year ago by Dr. Whelan presents today with lower back pain that radiates into her left lower extremity laterally with numbness and tingling in her left foot. She reports walking has improved after back surgery but muscle spasms have been ?terrifying and not controllable.? Patient states her back pain also travels upwards toward mid back and in between shoulder blades. Pain is described as constant aching, pins and needles, throbbing, burning, and spasming sensations which worsen during the evenings and middle of the night with highest pain intensity at 9/10. Patient reports her pain is increased with walking over 20 minutes, prolonged sitting or standing. She cannot get comfortable during the night and has been sleeping poorly. She has been trying to control her pain with tizanidine and Percocet 7.5-325 mg QID prn with continued symptoms. Patient has received lumbar injection x1 prior to back surgery with only one week of pain relief. She completed physical therapy with a TENS unit and weighted ice packs with mild to moderate improvements. No MRIs or lumbar x rays were done after back surgery per patient. She is interested in neuromodulation treatment modalities but would like to restart physical therapy and obtain her personal TENS unit. Patient denies any fever, chills, malaise, abdominal or groin pain, weakness, bowel/bladder incontinence or saddle anesthesia. She ambulates with normal gait without assisting devices. [facility] Medical History History of back pain History of neuropathy Smokes tobacco daily Opioid dependence Nephrolithiasis Hyperlipidemia HTN (hypertension) Cardiomyopathy Myocardial infarction CAD (coronary artery disease) Cough Hypothyroidism, postsurgical Tubular adenoma Diabetes MCKAY (obstructive sleep apnea) Irritable bowel syndrome Hyperthyroidism Polycythemia Smoker Hypoxia COPD exacerbation Lesion of bronchus Tracheal anomaly Multinodular goiter Vitamin D deficiency Atelectasis Subclinical hyperthyroidism Goiter Pneumonia Pulmonary nodules COPD (chronic obstructive pulmonary disease) Surgical History History of coronary artery stent placement Hx of thyroidectomy History of thyroid surgery History of esophagogastroduodenoscopy (EGD) Hx of colonoscopy History of back surgery History of ureterostomy S/P lumpectomy, right breast History of cholecystectomy History of tonsillectomy Family History Father No problems noted. Mother No problems noted. Paternal Aunt Diabetes Social History Household Members: Spouse Housing: House Do you presently have visiting nurse or other home services: No Alcohol intake: never Comment: pt refused bed alarm/camera Patient Tobacco Use Status: Current everyday Tobacco user Tobacco use type: Cigarette Cigarette Packs Per Day: 0.5 Cigarettes Per Day: 6 e-Cigarette/Vaping Use: Never Used Second Hand Smoke Exposure: Yes Substance Use Type: Marijuana Advance Directives Date on File: 01/24/21 service: No Current occupational status: disabled Review of Systems Const All systems reviewed & are unremarkable except as noted in HPI and below Physical Exam Vital Signs: Last Vital Signs Pulse 77 08/27/23 10:58 BP 143/62 H 08/27/23 10:58 Pulse Ox 95 08/27/23 10:58 Oxygen Delivery Method Room Air 08/27/23 10:58 BMI result Body Mass Index 28.5 General: Appears afebrile. Strong tobacco odor. Alert and oriented. Mood and affect appropriate. Follows and participates in conversation appropriately. Respiratory effort is unlabored. No cough. Able to transition from sit to stand unassisted. Ambulates with bilaterally normal heel strike and toe off. Extrem Other: There is a decreased sensation over the soles of the feet and toes. No breaks in the skin. No soft tissue swelling or warmth. +2 pedal pulses bilaterally. Normal capillary refill. No calf tenderness. No clubbing, cyanosis or edema. General: Yes capillary refill normal, Yes no clubbing, cyanosis or edema and Yes no calf tenderness Left upper extremity: elbow/forearm Details: normal to inspection, tenderness Location: of the lateral epicondyle and of the proximal forearm, normal ROM and distal pulses intact; no swelling, no unusual warmth and no crepitus Office Procedures Topical Capsaicin Date 1:: 02/26/23 Date 2:: 05/28/23 Date 3:: 08/27/23 Main area of pain on the body: Bilateral feet and toes Laterality: Bilateral Location of left foot pain: Plantar, Dorsal, Medial, Lateral and Distal Location of right foot pain: Plantar, Dorsal, Medial, Lateral and Distal Quality of pain: Aching, Nagging, Burning, Gnawing, Numb-like and Tiring Details:: Two patches, 560 cm2 were utilized per each foot. EMLA Cream (lidocaine 2.5% and prilocaine 2.5%) was applied at home by patient prior to application of the patches. The patient tolerated the procedure well. Patient?s vitals signs remained stable throughout the procedure. Patient was able to complete the stipulated 30 minutes of the therapeutic application without any discomfort. Office Meds capsaicin-skin cleanser 8 % topical kit Performing Provider: GEETA Ha Performing Location: [facility] Administered by: GEETA Ha on 08/27/23 10:41 2 Dose Route Admin Location Dispensed Lot Number Expiration Date [facility] [place] Assistant Finance Manager 4 ea topical [facility] 4 ea [id number] 09/27/25 95894-496-41 Pin digital Quality Reporting (2019) Adult ([facility] 13805/21/68) Smoking risk assessment performed?: Yes Patient Tobacco Use Status: Current everyday Tobacco user Results Reviewed Results Reviewed: NE electromyogram (EMG); NE nerve conduction velocity 08/21/23 XR CERVICAL SPINE XR DORSAL SPINE 07/24/23 CLINICAL INFORMATION: Radiculopathy cervical region. COMPARISON: None. TECHNIQUE: 3 views of the dorsal spine. 6 views of the cervical spine. FINDINGS: Cervical spine: Vertebral bodies normally aligned. There are prominent bridging osteophytes along the anterior aspect of the C5-C6 levels. Mild degenerative disc changes at the C4-C5, C5-C6 and C6-C7 levels manifested by endplate osteophytes. Facets unremarkable. No bony encroachment on the neural foramina. Surgical clips noted anterior to the cervical spine. Dorsal spine: Vertebral bodies normal in height, normally aligned. Multilevel degenerative disc changes manifested by endplate osteophytes and disc space narrowing. Surrounding bone and soft tissues unremarkable. IMPRESSION: 1. Cervical spine: Mild multilevel degenerative changes of the cervical spine. 2. Dorsal spine: Mild multilevel spondylosis. Assessment & Plan Assessment & Plan (1) Chronic painful diabetic neuropathy: Code(s): E11.40 - Type 2 diabetes mellitus with diabetic neuropathy, unspecified Category: Medical (2) Cubital tunnel syndrome on left: Code(s): G56.22 - Lesion of ulnar nerve, left upper limb Category: Medical (3) Left elbow pain: Code(s): M25.522 - Pain in left elbow Category: Medical (4) Ulnar neuropathy at elbow of left upper extremity: Code(s): G56.22 - Lesion of ulnar nerve, left upper limb Category: Medical Plan Patient is status post 3rd round of application of topical capsaicin 8% for peripheral diabetic neuropathy in bilateral feet. Patient tolerated the procedure with significant discomfort with application of EMLA cream prior to the procedure. She was discharged home in stable condition with discharge instructions. Follow up with Orthopedic provider for acute left ulnar neuropathy as planned. Continue pregabalin. She also takes prednisone 5 mg daily as maintenance for COPD per Pulmonology services. All questions and concerns have been answered and patient agreed with the plan. Follow up as needed. Greater than 45 minutes were spent in therapeutic application and in coordination of the care. Orders: Orders 2 AMB Capsaicin Patch - Practice Supplied Today E11.40 - Type 2 diabetes mellitus with diabetic neuropathy, unspecified Medications: New 2 arm brace (HANK Elbow Brace) As directed 1 ea 0RF left elbow pain, ulnar neuropathy G56.22 - Lesion of ulnar nerve, left upper limb, M25.522 - Pain in left elbow Coding Level of Care Code Est Pt Level 4 (00994) Diagnoses Chronic painful diabetic neuropathy E11.40 Cubital tunnel syndrome on left G56.22 Left elbow pain M25.522 Ulnar neuropathy at elbow of left upper extremity G56.22
[2023-08-27 10:31] VITALS: BP 150/67; PULSE 88; O2SAT 96; BMI 28.5
[2023-08-27 10:58] VITALS: BP 143/62; PULSE 77; O2SAT 95
[2023-08-27 11:30] VITALS: BP 151/72; PULSE 82; O2SAT 95
== END 2023-08-27 11:29 | disposition home or self-care (01) ==
PROVIDERS: PCP Internal Medicine Geriatric Medicine; Visit Provider Nurse Practitioner Family
DX: E11.40 Type 2 diabetes mellitus with diabetic neuropathy, unspecified (principal); G56.22 Lesion of ulnar nerve, left upper limb; M25.522 Pain in left elbow
CPT/HCPCS: 17999; 99214

== ENCOUNTER → 2023-08-27 10:26 | Outpatient (BNVA) | payer OTHER, SELFPAY | PROVIDERS: PCP Internal Medicine Geriatric Medicine; Visit Provider Nurse Practitioner Family | DX: E11.40 Type 2 diabetes mellitus with diabetic neuropathy, unspecified (principal); G56.22 Lesion of ulnar nerve, left upper limb; M25.522 Pain in left elbow | CPT/HCPCS: 17999; 99212; J7336 ==

== ENCOUNTER 2023-09-22 09:15 | Outpatient (AMB) | payer OTHER, SELFPAY ==
--- NOTE | 2023-09-22 09:23 | MHC.OFFVIS ---
Intake Visit Reasons: ov- EMG review left elbow Intake Note: Marita a 62 year old, right hand dominant, female presents today for her EMG review of left arm. States she continues to have numbness and tingling in all her fingers, except her thumb. States pain in elbow radiates into forearm and up into her shoulder area. Finds some relief at night with elbow brace. Allergies HANK Inhibitors [HANK INHIBITORS] Allergy (Severe, Verified 09/22/23 09:55) ANGIO EDEMA enalapril Allergy (Severe, Verified 09/22/23 09:55) Anaphylaxis erythromycin base [ERYTHROMYCIN BASE] Allergy (Severe, Verified 09/22/23 09:55) HIVES ALL OVER hydromorphone [From DILAUDID] Adverse Reaction (Severe, Verified 09/22/23 09:55) TINGLING, PT DOES NOT LIKE THE FEELING MED GIVES HER HPI HPI ov- EMG review left elbow: Details: Marita is a 62 year old right hand dominant Diabetic woman who presents for a NCS review of her left hand numbness. She complains of ~2 months worsening left hand numbness & elbow pain. Her numbness is primarily in her ring & small fingers but she says she feels numbness in her index, and middle fingers. Symptoms intermittent, but daily, worse at night. She says she has tingling almost constantly in her fingers, but her numbness is intermittent. She denies any numbness in her thumb. She has been wearing an elbow brace given to her by Pain management, with some relief. She says she has been sleeping in a recliner for ~2 months now. She says when sleeping in her bed or a couch she would often roll onto her side, or arm, and cause hand numbness & pain in her shoulder. She also complains of pain in her dorsal lateral forearm, worse with gripping or lifting activities. She has several comorbidities, including: Diabetes, Cardiomyopathy, CAD, Hx of MS, COPD, Smoker, MCKAY, Hx of Atelectasis, Peripheral neuropathy, Kidney stones, and Opioid use. She is currently taking Percocets q.i.d. She is not working and is on disability. She says she does not know her HgA1c as she just finished a 2 week course of Prednisone. She says she should be tested again in a few weeks by her PCP. [facility] Medical History History of back pain History of neuropathy Smokes tobacco daily Opioid dependence Nephrolithiasis Hyperlipidemia HTN (hypertension) Cardiomyopathy Myocardial infarction CAD (coronary artery disease) Cough Hypothyroidism, postsurgical Tubular adenoma Diabetes MCKAY (obstructive sleep apnea) Irritable bowel syndrome Hyperthyroidism Polycythemia Smoker Hypoxia COPD exacerbation Lesion of bronchus Tracheal anomaly Multinodular goiter Vitamin D deficiency Atelectasis Subclinical hyperthyroidism Goiter Pneumonia Pulmonary nodules COPD (chronic obstructive pulmonary disease) Surgical History History of coronary artery stent placement Hx of thyroidectomy History of thyroid surgery History of esophagogastroduodenoscopy (EGD) Hx of colonoscopy History of back surgery History of ureterostomy S/P lumpectomy, right breast History of cholecystectomy History of tonsillectomy Family History Father No problems noted. Mother No problems noted. Paternal Aunt Diabetes Social History Household Members: Spouse Housing: House Do you presently have visiting nurse or other home services: No Alcohol intake: never Comment: pt refused bed alarm/camera Patient Tobacco Use Status: Current everyday Tobacco user Tobacco use type: Cigarette Cigarette Packs Per Day: 0.5 Cigarettes Per Day: 6 e-Cigarette/Vaping Use: Never Used Second Hand Smoke Exposure: Yes Substance Use Type: Marijuana Advance Directives Date on File: 01/24/21 service: No Current occupational status: disabled Review of Systems Const All systems reviewed & are unremarkable except as noted in HPI and below Physical Exam Const General: no acute distress and alert Orientation/consciousness: patient oriented x3 Neuro General: patient oriented x3 Extrem Other: Evaluation of Left Upper Extremity: The patient is alert, oriented, and in no acute distress Neuro: Dense numbness in the index finger. Dense numbness in the ulnar nerve distribution Normal sensation to the thumb & middle finger. No thenar or intrinsic wasting Good APB muscle belly firing and good finger cross Vascular: Cap refill brisk ROM: She can make a fist and extend all her digits No locking or catching Nerve Conduction Study: Left-side only IMPRESSION: 1. This is an abnormal study. 2. There is electrodiagnostic evidence for acute left ulnar neuropathy at the elbow. 3. There is no electrodiagnostic evidence for median neuropathy, brachial plexopathy, or cervical radiculopathy. Idalia Blanton MD, KAN 08/21/23 Psych Appearance: grossly normal Affect: normal affect Attitude: cooperative Quality Reporting (2019) Adult ([facility] 13805/21/68) Smoking risk assessment performed?: Yes Patient Tobacco Use Status: Current everyday Tobacco user Assessment & Plan Assessment & Plan (1) Cubital tunnel syndrome on left: Code(s): G56.22 - Lesion of ulnar nerve, left upper limb Category: Medical (2) Numbness and tingling in left hand: Code(s): R20.0 - Anesthesia of skin; R20.2 - Paresthesia of skin Category: Medical (3) Chronic painful diabetic neuropathy: Code(s): E11.40 - Type 2 diabetes mellitus with diabetic neuropathy, unspecified Category: Medical (4) Diabetes: Code(s): E11.9 - Type 2 diabetes mellitus without complications Category: Medical (5) Tobacco abuse: Code(s): Z72.0 - Tobacco use Category: Medical (6) CAD (coronary artery disease): Code(s): I25.10 - Atherosclerotic heart disease of [place] coronary artery without angina pectoris Category: Medical (7) CHF (congestive heart failure): Code(s): I50.9 - Heart failure, unspecified Category: Medical (8) MCKAY (obstructive sleep apnea): Code(s): G47.33 - Obstructive sleep apnea (adult) (pediatric) Category: Medical (9) COPD (chronic obstructive pulmonary disease): Code(s): J44.9 - Chronic obstructive pulmonary disease, unspecified Category: Medical Qualifiers: COPD type: unspecified COPD Qualified Code(s): J44.9 - Chronic obstructive pulmonary disease, unspecified Plan Assessment & Plan: 1. Left cubital tunnel syndrome, With dense numbness I educated her about this condition I discussed operative and non-operative treatment options The patient would like to proceed with surgery The risks and benefits of operative treatment were discussed with the patient and the patient wishes to proceed with surgery. These risks include, but are not limited to risk of damage to blood vessels, nerves, tendons, infection, recurrence, incomplete relief of preoperative symptoms, persistent pain, possible need for further surgery and the risks associated with regional blocks and anesthesia. The plan is to take the patient to the operating room sometime in the next few weeks for the following procedures: 1. Left cubital tunnel release vs transposition, under general All of the preoperative paperwork including the consent was reviewed today. All the patient's questions were answered. The patient understands that they will be contacted by our book cutter soon to schedule this procedure She denies blood thinners She has several comorbidities, including: Diabetes, Cardiomyopathy, CAD, CHF, Hx of MS, COPD, Smoking, MCKAY, Hx of Atelectasis, Peripheral neuropathy, and Opioid use. She is currently taking Percocets q.i.d. She says her HgA1c was generally ~7.0%, but she has been on a 2 week course of Prednisone. If she has an acceptable HgA1c that is <8.1% within the last 4 months this is acceptable to proceed with surgery. They will need clearance from Cardiology & Pulmonology 2. Left index finger dense numbness Etiology unclear, becoming more frequent Normal sensation to the thumb & middle finger No evidence of carpal tunnel syndrome or cervical radiculopathy on NCS from 08/21/23 Scribed for Sudha Cartwright MD by Peña Arenas, spanish medical interpreter, on 09/22/23 at 9:50 AM, EST. Coding Level of Care Code Est Pt Level 4 (83175) Diagnoses Cubital tunnel syndrome on left G56.22 Numbness and tingling in left hand R20.0; R20.2 Chronic painful diabetic neuropathy E11.40 Diabetes E11.9 Tobacco abuse Z72.0 CAD (coronary artery disease) I25.10 CHF (congestive heart failure) I50.9 MCKAY (obstructive sleep apnea) G47.33 Simple chronic bronchitis J44.9 COPD type: unspecified COPD
== END 2023-09-22 10:33 | disposition home or self-care (01) ==
PROVIDERS: PCP Internal Medicine Geriatric Medicine; Visit Provider Orthopaedic Surgery
DX: G56.22 Lesion of ulnar nerve, left upper limb (principal); R20.0 Anesthesia of skin; R20.2 Paresthesia of skin; E11.9 Type 2 diabetes mellitus without complications; Z72.0 Tobacco use; I25.10 Atherosclerotic heart disease of native coronary artery without angina pectoris; I50.9 Heart failure, unspecified; G47.33 Obstructive sleep apnea (adult) (pediatric); J44.9 Chronic obstructive pulmonary disease, unspecified
CPT/HCPCS: 99214

== ENCOUNTER → 2023-09-22 09:15 | Outpatient (BNVA) | payer OTHER, SELFPAY | PROVIDERS: PCP Internal Medicine Geriatric Medicine; Visit Provider Orthopaedic Surgery | DX: G56.22 Lesion of ulnar nerve, left upper limb (principal); R20.0 Anesthesia of skin; R20.2 Paresthesia of skin; E11.40 Type 2 diabetes mellitus with diabetic neuropathy, unspecified; I25.10 Atherosclerotic heart disease of native coronary artery without angina pectoris; I11.0 Hypertensive heart disease with heart failure; I50.9 Heart failure, unspecified; J44.9 Chronic obstructive pulmonary disease, unspecified; G47.33 Obstructive sleep apnea (adult) (pediatric); Z72.0 Tobacco use | CPT/HCPCS: 99212 ==

== ENCOUNTER 2023-09-28 12:16 | Outpatient (REF) | payer OTHER, SELFPAY ==
[2023-09-28 13:39] LABS: Free T4 (Free Thyroxine) 1.37 ng/dL (0.71-1.85); Thyroid Stimulating Hormone 0.21 uIU/mL (0.32-4.0)
== END 2023-09-28 12:17 | disposition home or self-care (01) ==
LOC: HO.LAB 12:16
PROVIDERS: PCP Internal Medicine Geriatric Medicine; Visit Provider Internal Medicine Endocrinology, Diabetes & Metabolism
DX: E89.0 Postprocedural hypothyroidism (principal)
CPT/HCPCS: 36415; 84439; 84443

== ENCOUNTER 2023-10-28 09:11 | Outpatient (AMB) | payer OTHER, SELFPAY ==
--- NOTE | 2023-10-28 09:17 | A.OFFVIS_ITS ---
Vital Signs 10/28/23 09:18 Height 5 ft 5 in Weight 170 lb BMI 28.3 Pulse 86 Pulse Source Pulse Oximeter Pulse Oximetry (%) 94 Oxygen Delivery Method Room Air Intake Visit Reasons: COPD/Left cubital tunnel release (Dr. Cartwright) [employer] Required: No Allergies HANK Inhibitors [HANK INHIBITORS] Allergy (Severe, Verified 10/28/23 09:19) ANGIO EDEMA enalapril Allergy (Severe, Verified 10/28/23 09:19) Anaphylaxis erythromycin base [ERYTHROMYCIN BASE] Allergy (Severe, Verified 10/28/23 09:19) HIVES ALL OVER hydromorphone [From DILAUDID] Adverse Reaction (Severe, Verified 10/28/23 09:19) TINGLING, PT DOES NOT LIKE THE FEELING MED GIVES HER HPI Comments Details: The patient is a 62-year-old woman with a known history of COPD and former smoker. She has had multiple hospitalizations for her COPD exacerbations. Also requiring multiple prednisone tapers in currently on chronic prednisone 5 mg daily. She was evaluated in the hospital back in April and in July. She did have chest x-rays demonstrating bilateral hazy opacities. On repeat x-rays from October 2019 it appeared that she still has a persistent opacity in the right infrahilar area. Therefore, CT scan of the chest is warranted. The patient is no longer smoking that she quit 2 years ago. However, she still exposed to secondhand smoke. She continues use her nebulizer 1 or twice a day. And she continues to use her respiratory regimen with partial resolution of her symptoms. She does complaint of shortness of breath [id number] severity with activity. And she also complains of cough usually productive in nature with either wider yellowish sputum. In the office we did have her go for 6 minutes walk test. She was able to ambulate 700 ft. Her Hillary score was 7/10 suggesting that she was in the dyspneic. Her pulse ox was indeed reassuring 94-95% throughout the ambulation. 01/24/2022 the patient is here for a pulmonary follow-up visit. Since we last spoke she has had a tough few weeks. Beginning December she started developing worsening respiratory symptoms with cough. Ultimately now her cough has become more productive greenish in color. During the last time I saw her back in the springtime she did have a COPD exacerbation requiring antibiotics and prednisone. Now with her symptoms getting worse she was able to take 20 mg of prednisone that she had and she did feel little better. She did have a CT scan of the chest sometime in the beginning of December demonstrating areas of ground- glass opacities. It is likely that she possibly had a lower respiratory viral infection and ultimately resulted in a postviral bacterial infection. She continues use her nebulizers. On examination she does have some wheezing and rhonchi. 07/25/2022 the patient is here for pulmonary follow-up visit. Since we last spoke patient ended up going to the [facility] with COPD exacerbation. She had acute respiratory failure home. She was treated for about 3-4 days since she was released. The patient had a chest x-ray demonstrating atelectasis. She was able to wean off the oxygen when she went home. Unfortunately she continues to smoke cigarettes. She also has issues with hyperparathyroidism and she has lost significant amount of weight. She recently saw her primary care doctor was placed on prednisone for COPD exacerbation. She is bringing up some mucus although is clear. The patient has allergies to antibiotics including macrolides. We did go for brief walking oximetry and she did very well maintaining a pulse ox noted. 11/24/2022 the patient is here for pulmonary follow-up visit. Overall the patient has been losing weight. She was diagnosed with apparently Lori disease, hyperthyroidism. She needs to undergo surgery. The patient is here for preoperative evaluation. She continues on the Trelegy inhaler which has been affecting beneficial. She has not required any additional prednisone. She does take 5 mg daily. She recently had a fall and she factor multiple bones but she healed okay which is reassuring. She continues to smoke unfortunately. She is trying to cut down before surgery. She did do well with Chantix in the past she quit smoking for 3 years on it. Then she tried again and cause severe nausea and vomiting and she had to stop it. I do believe that she should restarted or consider a 3rd course possibly after surgery. We did have her undergo pulmonary function studies spirometry in the office. It appears that she does have a severe obstruction consistent with severe COPD. Therefore explained to the patient that she is high risk for perioperative pulmonary complications which include COPD exacerbations, atelectasis, hypoxia, pneumonia and prolonged mechanical ventilation. At least a pulmonary standpoint the patient is medically optimize. The patient is able to proceed with anesthesia and surgery understanding that she is high risk for these potential complications. 09/17/2023 the patient is here for a pulmonary follow-up visit overall the patient doing fairly well. She did have to call the dispatch because she was having difficulty breathing. She was given a short course of prednisone and now back to her based on prednisone 5 mg. She states that after her thyroid surgery back in the fall of 2022 her breathing has not been complete normal. She has had some just increased work of breathing but at this point is gotten better. Will continue to monitor her progress although right now her breathing is good I do not appreciate any stridor and she does not have any wheezing on examination. Therefore her respiratory therapy is stable. She is having issues with kidney stones. The patient is scheduled to undergo lithotripsy at this point. She will need to be under anesthesia. She does have increased risk for periop erative pulmonary complications due to her COPD and her chronic steroids but at this point she is medically optimize and is able to proceeding consent for anesthesia and surgery. We did review her chest x-ray that she had back in March 2023 demonstrating no acute disease which is reassuring. She is scheduled for CT scan of the chest because will monitoring closely pulmonary nodules in her lung cancer screening. Will plan to follow-up in 6 months with pulmonary function studies to assess her flow volume loop. 10/28/2023 the patient is here for a pulmonary follow-up visit. Recently she had to go on a prednisone taper for an asthma flare-up. She is down to her baseline prednisone. Now she is concerned about her sugars being elevated and therefore she may have to hold her orthopedic surgery. She will be seeing her hand surgeon soon. She will have additional blood work. As long she is able to taper off the prednisone and she is on her maintenance therapy and she is doing well she can proceed with anesthesia and surgery. When she completes couple more days of antibiotics. She will let me know how she is doing and if she feels like the symptoms are rebounding then she can be prescribed additional medications then. She needs to quit smoking. I did send the nicotine patch to the pharmacy. We did look at her CT scan of the chest which demonstrates bronchitis and some degree of atelectasis and some minimal emphysema but her lung parenchyma still fairly viable and she quit smoking she can least have normal lung capacity. [facility] Medical History History of back pain History of neuropathy Smokes tobacco daily Opioid dependence Nephrolithiasis Hyperlipidemia HTN (hypertension) Cardiomyopathy Myocardial infarction CAD (coronary artery disease) Cough Hypothyroidism, postsurgical Tubular adenoma Diabetes MCKAY (obstructive sleep apnea) Irritable bowel syndrome Hyperthyroidism Polycythemia Smoker Hypoxia COPD exacerbation Lesion of bronchus Tracheal anomaly Multinodular goiter Vitamin D deficiency Atelectasis Subclinical hyperthyroidism Goiter Pneumonia Pulmonary nodules COPD (chronic obstructive pulmonary disease) Surgical History History of coronary artery stent placement Hx of thyroidectomy History of thyroid surgery History of esophagogastroduodenoscopy (EGD) Hx of colonoscopy History of back surgery History of ureterostomy S/P lumpectomy, right breast History of cholecystectomy History of tonsillectomy Family History Father No problems noted. Mother No problems noted. Paternal Aunt Diabetes Social History Household Members: Spouse Housing: House Do you presently have visiting nurse or other home services: No Alcohol intake: never Comment: pt refused bed alarm/camera Patient Tobacco Use Status: Current everyday Tobacco user Tobacco use type: Cigarette Cigarette Packs Per Day: 0.5 Cigarettes Per Day: 6 e-Cigarette/Vaping Use: Never Used Second Hand Smoke Exposure: Yes Substance Use Type: Marijuana Advance Directives Date on File: 01/24/21 service: No Current occupational status: disabled Review of Systems Const Reports fatigue and Reports weight loss ENT Denies change in voice, Denies lip swelling, Denies mouth pain, Reports nasal congestion, Reports nasal discharge and Denies tongue swelling Card Denies chest pain and Denies dyspnea on exertion Resp Denies chest congestion, Reports cough and Denies dyspnea on exertion GI Denies abdominal pain Musc Denies no additional complaints Neuro Denies Neuro-related abnormal movements Psych Denies no additional complaints Endo Reports fatigue Alberto/Lymph Denies easy bleeding and Denies lymphadenopathy Aller/Immun Denies lip swelling and Denies tongue swelling Physical Exam Vital Signs: Last Vital Signs Pulse 86 10/28/23 09:18 Pulse Ox 94 10/28/23 09:18 Oxygen Delivery Method Room Air 10/28/23 09:18 BMI result Body Mass Index 28.3 Const General: healthy appearing, no acute distress and well developed Nutritional Appearance: well nourished Orientation/consciousness: patient oriented x3 HEENT Head: Yes normal to inspection, Yes normocephalic and Yes atraumatic Face and sinus: Yes normal facial exam Mouth: Normal oral and palatal mucosa present Throat: Yes posterior oropharynx normal, Yes tonsils normal and Yes uvula midline Neck Neck: Yes normal visual inspection, Yes full ROM and Yes trachea midline Thyroid: Thyroid normal Chest Chest palpation & inspection: normal inspection of the chest Resp Effort & Inspection: normal respiratory effort and no tracheal deviation Auscultation: no wheezes and diminished lung sounds Cardio Rate: regular rate Heart sounds: S1 normal heart sound present, S2 normal heart sound present, no gallops and no murmurs GI Inspection: No distended Palpation (GI): Soft to palpation Skin General skin exam: no rashes or lesions noted Neuro General: patient oriented x3 Extrem General: Yes no clubbing, cyanosis or edema Psych Appearance: grossly normal Mental Status: mental status grossly normal Speech and movement: Normal speech and movement present Affect: normal affect Attitude: cooperative Thought process: Normal thought process present Thought content: Normal thought content present Insight: Good insight present (Psych) Judgement: Good judgement present (Psych) Quality Reporting (2019) Adult ([facility] 138/05/21/68) Smoking risk assessment performed?: Yes Patient Tobacco Use Status: Current everyday Tobacco user Assessment & Plan Assessment & Plan (1) Pre-op chest exam: Code(s): Z01.811 - Encounter for preprocedural respiratory examination Category: Medical (2) Atelectasis: Code(s): J98.11 - Atelectasis Category: Medical (3) COPD (chronic obstructive pulmonary disease): Code(s): J44.9 - Chronic obstructive pulmonary disease, unspecified Category: Medical Qualifiers: COPD type: unspecified COPD Qualified Code(s): J44.9 - Chronic obstructive pulmonary disease, unspecified (4) MCKAY (obstructive sleep apnea): Code(s): G47.33 - Obstructive sleep apnea (adult) (pediatric) Category: Medical (5) Pulmonary nodules: Code(s): R91.8 - Other nonspecific abnormal finding of lung field Category: Medical (6) Cough: Code(s): R05.9 - Cough, unspecified Category: Medical Qualifiers: Cough type: chronic Qualified Code(s): R05.3 - Chronic cough Plan May proceed with orthopedic surgery from a pulmonary standpoint Continue Trelegy Duoneb/Combivent as needed continue Prednisone 5mg daily Needs to stop smoking: nicotine patch continue Daliresp overnight oximetry F/U 6 months Orders: Orders Overnight Pulse Oximetry Today J44.9 - Chronic obstructive pulmonary disease, unspecified Medications: New nicotine 1 patch transdermal DAILY 28 ea 6RF 28 days Coding Level of Care Code Est Pt Level 4 (24219) Diagnoses Pre-op chest exam Z01.811 Atelectasis J98.11 Simple chronic bronchitis J44.9 COPD type: unspecified COPD MCKAY (obstructive sleep apnea) G47.33 Pulmonary nodules R91.8 Chronic cough R05.3 Cough type: chronic Time Spent (min) 17
[2023-10-28 09:18] VITALS: PULSE 86; O2SAT 94; BMI 28.3
== END 2023-10-28 09:39 | disposition home or self-care (01) ==
PROVIDERS: PCP Internal Medicine Geriatric Medicine; Visit Provider Hospitalist
DX: Z01.811 Encounter for preprocedural respiratory examination (principal); J98.11 Atelectasis; J44.9 Chronic obstructive pulmonary disease, unspecified; G47.33 Obstructive sleep apnea (adult) (pediatric); R91.8 Other nonspecific abnormal finding of lung field; R05.3 Chronic cough
CPT/HCPCS: 99214

== ENCOUNTER → 2023-10-28 09:11 | Outpatient (BNVA) | payer OTHER, SELFPAY | PROVIDERS: PCP Internal Medicine Geriatric Medicine; Visit Provider Hospitalist | DX: Z01.811 Encounter for preprocedural respiratory examination (principal); J98.11 Atelectasis; J44.9 Chronic obstructive pulmonary disease, unspecified; R91.8 Other nonspecific abnormal finding of lung field; R05.3 Chronic cough; Z79.52 Long term (current) use of systemic steroids | CPT/HCPCS: 99212 ==

== ENCOUNTER 2023-11-03 12:13 | Outpatient (AMB) | payer OTHER, SELFPAY ==
--- NOTE | 2023-11-03 12:16 | MHC.OFFVIS ---
Vital Signs 11/03/23 12:23 Height 5 ft 5 in Weight 170 lb BMI 28.3 Intake Visit Reasons: Preop LT cubital tunnel 11/12/23 AR Intake Note: Marita is a 62 yo who presents today pre operatively for left cubital tunnel release scheduled 11/12/[address] Cartwright. Patient reports her most recent A1C was in the high 8's and she does not think we can move forward with sx. Consents available in patient's chart. Allergies HANK Inhibitors [HANK INHIBITORS] Allergy (Severe, Verified 11/03/23 12:24) ANGIO EDEMA enalapril Allergy (Severe, Verified 11/03/23 12:24) Anaphylaxis erythromycin base [ERYTHROMYCIN BASE] Allergy (Severe, Verified 11/03/23 12:24) HIVES ALL OVER hydromorphone [From DILAUDID] Adverse Reaction (Severe, Verified 11/03/23 12:24) TINGLING, PT DOES NOT LIKE THE FEELING MED GIVES HER HPI HPI Preop LT cubital tunnel 11/12/23 AR: Details: Marita is a 62 year old right hand dominant Diabetic woman who returns to discuss her left cubital tunnel syndrome She continues to complaint of left hand numbness. Her numbness is primarily in her ring & small fingers but she says she feels numbness in her index, and middle fingers. Symptoms intermittent, but daily, worse at night. She says she has tingling almost constantly in her fingers, but her numbness is intermittent. She denies any numbness in her thumb. She has been wearing an elbow brace given to her by Pain management, with some relief. She says she has been sleeping in a recliner for ~4 months now. She says when sleeping in her bed or a couch she would often roll onto her side, or arm, and cause hand numbness & pain in her shoulder. She says she has been repeatedly injured in the last week, accidentally breaking her 2nd toe, and she says she tripped and fell into her backyard fence while chasing a Iroquois out of her yard. She says her most recent HgA1c was 9.1%, and then 8.8% ~1 month ago, she has been on repeated short-term courses of Prednisone for her COPD. She says she just finished her most recent course yesterday. She also complains of pain in her dorsal lateral forearm, worse with gripping or lifting activities. She has several comorbidities, including: Diabetes, Cardiomyopathy, CAD, Hx of [place], COPD, Smoker, MCKAY, Hx of Atelectasis, Peripheral neuropathy, Kidney stones, and Opioid use. She is currently taking Percocets q.i.d. She is not working and is on disability. [facility] Medical History History of back pain History of neuropathy Smokes tobacco daily Opioid dependence Nephrolithiasis Hyperlipidemia HTN (hypertension) Cardiomyopathy Myocardial infarction CAD (coronary artery disease) Cough Hypothyroidism, postsurgical Tubular adenoma Diabetes MCKAY (obstructive sleep apnea) Irritable bowel syndrome Hyperthyroidism Polycythemia Smoker Hypoxia COPD exacerbation Lesion of bronchus Tracheal anomaly Multinodular goiter Vitamin D deficiency Atelectasis Subclinical hyperthyroidism Goiter Pneumonia Pulmonary nodules COPD (chronic obstructive pulmonary disease) Surgical History History of coronary artery stent placement Hx of thyroidectomy History of thyroid surgery History of esophagogastroduodenoscopy (EGD) Hx of colonoscopy History of back surgery History of ureterostomy S/P lumpectomy, right breast History of cholecystectomy History of tonsillectomy Family History Father No problems noted. Mother No problems noted. Paternal Aunt Diabetes Social History Household Members: Spouse Housing: House Do you presently have visiting nurse or other home services: No Alcohol intake: never Comment: pt refused bed alarm/camera Patient Tobacco Use Status: Current everyday Tobacco user Tobacco use type: Cigarette Cigarette Packs Per Day: 0.5 Cigarettes Per Day: 6 e-Cigarette/Vaping Use: Never Used Second Hand Smoke Exposure: Yes Substance Use Type: Marijuana Advance Directives Date on File: 01/24/21 service: No Current occupational status: disabled Physical Exam Vital Signs: BMI result Body Mass Index 28.3 Const General: no acute distress and alert Orientation/consciousness: patient oriented x3 Neuro General: patient oriented x3 Extrem Other: Evaluation of Left Upper Extremity: The patient is alert, oriented, and in no acute distress Neuro: Dense numbness in the index finger. Dense numbness in the ulnar nerve distribution Normal sensation to the thumb & middle finger. No thenar or intrinsic wasting Good APB muscle belly firing and good finger cross Vascular: Cap refill brisk ROM: She can make a fist and extend all her digits No locking or catching Nerve Conduction Study: Left-side only IMPRESSION: 1. This is an abnormal study. 2. There is electrodiagnostic evidence for acute left ulnar neuropathy at the elbow. 3. There is no electrodiagnostic evidence for median neuropathy, brachial plexopathy, or cervical radiculopathy. Idalia Blanton MD, KAN 08/21/23 Psych Appearance: grossly normal Affect: normal affect Attitude: cooperative Quality Reporting (2019) Adult ([facility] ) Smoking risk assessment performed?: Yes Patient Tobacco Use Status: Current everyday Tobacco user Assessment & Plan Assessment & Plan (1) Cubital tunnel syndrome on left: Code(s): G56.22 - Lesion of ulnar nerve, left upper limb Category: Medical (2) Numbness and tingling in left hand: Code(s): R20.0 - Anesthesia of skin; R20.2 - Paresthesia of skin Category: Medical (3) Chronic painful diabetic neuropathy: Code(s): E11.40 - Type 2 diabetes mellitus with diabetic neuropathy, unspecified Category: Medical (4) Diabetes: Code(s): E11.9 - Type 2 diabetes mellitus without complications Category: Medical (5) Tobacco abuse: Code(s): Z72.0 - Tobacco use Category: Medical (6) CHF (congestive heart failure): Code(s): I50.9 - Heart failure, unspecified Category: Medical (7) COPD (chronic obstructive pulmonary disease): Code(s): J44.9 - Chronic obstructive pulmonary disease, unspecified Category: Medical Qualifiers: COPD type: unspecified COPD Qualified Code(s): J44.9 - Chronic obstructive pulmonary disease, unspecified Plan Assessment & Plan: 1. Left cubital tunnel syndrome, With dense numbness I educated her about this condition I discussed operative and non-operative treatment options The patient would like to proceed with surgery The risks and benefits of operative treatment were discussed with the patient and the patient wishes to proceed with surgery. These risks include, but are not limited to risk of damage to blood vessels, nerves, tendons, infection, recurrence, incomplete relief of preoperative symptoms, persistent pain, possible need for further surgery and the risks associated with regional blocks and anesthesia. The plan is to take the patient to the operating room sometime in the next few months for the following procedures: 1. Left cubital tunnel release vs transposition, under general All of the preoperative paperwork including the consent was reviewed today. All the patient's questions were answered. She denies blood thinners She has several comorbidities, including: Diabetes, Cardiomyopathy, CAD, CHF, Hx of [place], COPD, Smoking, MCKAY, Hx of Atelectasis, Peripheral neuropathy, and Opioid use. She is currently taking Percocets q.i.d. She says her HgA1c was generally ~7.0%, her most recent was ~9.0% due to her being on a course of Prednisone. We are cancelling her surgery for next week because her hemoglobin A1c is most recently 8.8%. She will follow-up sometime in December with a new hemoglobin A1c. If it is in an acceptable range we can hopefully set her back up for surgery. She will need an updated HgA1c that is <8.1% in order to proceed with surgery. She will follow up to discuss surgical intervention when her HgA1c is <8.1% She has received both Pulonology & Cardiology clearance to proceed with surgery. She may need repeat clearance due to her delay over her HgA1c. 2. Left index finger dense numbness Etiology unclear, becoming more frequent Normal sensation to the thumb & middle finger No evidence of carpal tunnel syndrome or cervical radiculopathy on NCS from 08/21/23 Scribed for Sudha Cartwright MD by [place] electromedical equipment technician, on 11/03/23 at 12:30 PM, EST. Coding Level of Care Code Est Pt Level 4 (31306) Diagnoses Cubital tunnel syndrome on left G56.22 Numbness and tingling in left hand R20.0; R20.2 Chronic painful diabetic neuropathy E11.40 Diabetes E11.9 Tobacco abuse Z72.0 CHF (congestive heart failure) I50.9 Simple chronic bronchitis J44.9 COPD type: unspecified COPD
[2023-11-03 12:23] VITALS: BMI 28.3
== END 2023-11-03 12:44 | disposition home or self-care (01) ==
PROVIDERS: PCP Internal Medicine Geriatric Medicine; Visit Provider Orthopaedic Surgery
DX: G56.22 Lesion of ulnar nerve, left upper limb (principal); R20.0 Anesthesia of skin; R20.2 Paresthesia of skin; E11.40 Type 2 diabetes mellitus with diabetic neuropathy, unspecified
CPT/HCPCS: 99024

== ENCOUNTER → 2023-11-03 12:13 | Outpatient (BNVA) | payer OTHER, SELFPAY | PROVIDERS: PCP Internal Medicine Geriatric Medicine; Visit Provider Orthopaedic Surgery | DX: G56.22 Lesion of ulnar nerve, left upper limb (principal); R20.0 Anesthesia of skin; R20.2 Paresthesia of skin; E11.40 Type 2 diabetes mellitus with diabetic neuropathy, unspecified; I11.0 Hypertensive heart disease with heart failure; I50.9 Heart failure, unspecified; J44.9 Chronic obstructive pulmonary disease, unspecified; Z72.0 Tobacco use | CPT/HCPCS: 99212 ==

== ENCOUNTER 2023-11-06 10:35 | Outpatient (REF) | payer OTHER, SELFPAY ==
[2023-11-06 12:10] LABS: Free T4 (Free Thyroxine) 1.15 ng/dL (0.71-1.85); Thyroid Stimulating Hormone 2.94 uIU/mL (0.32-4.0)
== END 2023-11-06 10:36 | disposition home or self-care (01) ==
LOC: HO.LAB 10:35
PROVIDERS: Absent Provider Internal Medicine Geriatric Medicine; PCP Internal Medicine Geriatric Medicine; Visit Provider Internal Medicine Endocrinology, Diabetes & Metabolism
DX: E89.0 Postprocedural hypothyroidism (principal)
CPT/HCPCS: 36415; 84439; 84443

== ENCOUNTER 2023-12-24 13:02 | Emergency (ER) | payer OTHER, SELFPAY ==
--- NOTE | ~2023-12-24 | XR_ITS ---
EXAMINATION: XR CHEST CLINICAL INFORMATION: Dyspnea COMPARISON: June 2023 TECHNIQUE: 2 views of the chest were obtained. FINDINGS: No significant abnormality is noted involving the heart, lungs, mediastinum, bony thorax or soft tissues. XR/XR chest 2V IMPRESSION: Unremarkable examination. No interval change Electronically signed by: Bria Montiel MD 12/24/2023 03:25 PM EDT RP
[2023-12-24 13:09] VITALS: BP 124/76; PULSE 90; O2SAT 88
[2023-12-24 13:12] VITALS: BP 146/62; PULSE 81; RESP 20; TEMP 36.7; O2SAT 93; BMI 28.3
--- NOTE | 2023-12-24 13:14 | ECG_ITS ---
Test Reason : sob Blood Pressure : / mmHG Vent. Rate : 085 BPM Atrial Rate : 085 BPM P-R Int : 152 ms QRS Dur : 090 ms QT Int : 382 ms P-R-T Axes : 052 -60 041 degrees QTc Int : 454 ms Normal sinus rhythm Left axis deviation Pulmonary disease pattern Abnormal ECG When compared with ECG of 18-JUL-2023 03:25, No significant change was found Referred By: Piper Hutton Electronically Signed By:CODY HAAS
--- NOTE | 2023-12-24 13:14 | ED_ITS ---
HPI - General Adult General Chief complaint: Dyspnea Stated complaint: WORSENING SOB,80%,3 DDUONEBS &O2 2LPM 98% Time Seen by Provider: 12/24/23 13:14 Source: patient, EMS and RN notes reviewed Mode of arrival: EMS Limitations: no limitations History of Present Illness ED Provider: nori HPI narrative: Patient is a 62-year-old female with history of COPD not on home O2, HTN, smoker, cardiomyopathy, CAD, DM, MCKAY, IBS presenting to the ED with complaint of shortness of breath, worse with exertion from home. She was medicated by EMS with 3 breathing treatments, solu-medrol, and magnesium prior to arrival. Patient reports significant improvement in symptoms after medications. Denies chest pain or palpitations. Denies fevers. States baseline O2 sat is around 94% on room air. MD complaint: shortness of breath Onset (ago): hour(s) Treatments prior to arrival: other Related Data Home Medications ?Medication ?Instructions ?Recorded ?Confirmed aspirin 81 mg tablet,delayed 81 mg PO BEDTIME 12/24/19 07/22/23 release atorvastatin 80 mg tablet 80 mg PO BEDTIME 12/24/19 07/22/23 carvedilol 6.25 mg tablet 6.25 mg PO BID 12/24/19 07/22/23 cetirizine 10 mg tablet 10 mg PO DAILY 12/24/19 07/22/23 montelukast 10 mg tablet 10 mg PO BEDTIME 12/24/19 07/22/23 omeprazole 20 mg capsule,delayed 20 mg PO BID@0630,1630 12/24/19 07/22/23 release ipratropium 20 mcg-albuterol 100 2 puff inhalation BID 01/02/20 07/22/23 mcg/actuation mist for inhalation (Combivent Respimat) docusate sodium 100 mg capsule 1 cap PO BID Constipation 01/24/21 07/22/23 blood sugar diagnostic (FreeStyle #10 ea 10/07/21 07/22/23 Lite Strips) lancets 33 gauge (TRUEplus Lancets) #100 ea 10/07/21 07/22/23 naloxone 4 mg/actuation nasal spray 1 spray intranasal ONCE PRN Opioid 10/07/21 07/22/23 Overdose insulin lispro 100 unit/mL 1 sliding scale dose subcut TIDAC 11/02/21 07/22/23 subcutaneous pen (Humalog KwikPen (U-100) Insulin) oxycodone-acetaminophen 7.5 mg-325 1 tab PO Q6H severe pain 06/23/22 07/22/23 mg tablet fluticasone propionate 50 1 spray intranasal DAILY PRN 07/25/22 07/22/23 mcg/actuation nasal Congestion spray,suspension dulaglutide 1.5 mg/0.5 mL 1.5 mg subcut REESE@0900 08/06/22 07/22/23 subcutaneous pen injector (Trulicity) calcium citrate 315 mg 2 tab PO QID 01/30/23 07/22/23 calcium-vitamin D3 6.25 mcg (250 unit) tablet ipratropium 0.5 mg-albuterol 3 mg 3 ml inhalation QID PRN Shortness 01/30/23 07/22/23 (2.5 mg base)/3 mL nebulization Of Breath Or Wheezing soln sennosides 8.6 mg tablet (senna) 17.2 mg PO BEDTIME PRN Constipation 01/30/23 07/22/23 nebulizers 06/03/23 07/22/23 pregabalin 75 mg capsule (Lyrica) 75 mg PO BID 08/17/23 Previous Rx's ?Medication ?Instructions ?Recorded insulin glargine 100 unit/mL (3 30 unit (0.3 mL) subcut BID #15 mL 02/12/22 mL) subcutaneous pen (Lantus Solostar U-100 Insulin) cholecalciferol (vitamin D3) 50 50 mcg PO DAILY #90 caps 05/21/23 mcg (2,000 unit) capsule (Vitamin D3) phenazopyridine 100 mg tablet 100 mg PO TID PRN Spasm 4 days #12 06/17/23 (Pyridium) tabs tamsulosin 0.4 mg capsule 0.4 mg PO BEDTIME 14 days #14 caps 06/17/23 celecoxib 200 mg capsule (Celebrex) 200 mg PO BID PRN pain #60 caps 07/24/23 lidocaine 5 % topical patch See Rx Instructions topical DAILY 07/24/23 pain #30 ea Ventolin HFA 90 mcg/actuation 2 puff inhalation Q4-6H PRN for 07/27/23 aerosol inhaler (albuterol sulfate) wheezing #18 grams arm brace (HANK Elbow Brace) #1 ea 08/27/23 levothyroxine 112 mcg tablet 112 mcg PO DAILY #30 tabs 09/29/23 pyridoxine (vitamin B6) 50 mg 50 mg PO DAILY 90 days #90 tabs 10/12/23 tablet prednisone 5 mg tablet 5 mg PO DAILY #30 tabs 10/19/23 roflumilast 500 mcg tablet 500 mcg PO DAILY #30 tabs 10/22/23 nicotine 21 mg/24 hr daily 1 patch transdermal DAILY 28 days 10/28/23 transdermal patch #28 ea methocarbamol 500 mg tablet 1,000 mg (2 x 500 mg) PO BID-TID 11/09/23 PRN for muscle spasm #120 tabs fluticasone fur. 100 mcg-umeclid 1 ea inhalation DAILY #1 ea 11/10/23 62.5 mcg-vilant 25 mcg inhalat.powder (Trelegy Ellipta) doxycycline hyclate 100 mg capsule 100 mg PO BID 10 days #20 caps 11/15/23 prednisone 20 mg tablet See Rx Instructions PO DAILY 10 11/15/23 days #15 tabs doxycycline hyclate 100 mg capsule 100 mg PO BID #10 caps 12/24/23 prednisone 20 mg tablet 40 mg (2 x 20 mg) PO DAILY #10 tabs 12/24/23 Allergies Allergy/AdvReac Type Severity Reaction Status Date / Time HANK Inhibitors Allergy Severe ANGIO Verified 11/03/23 12:24 [HANK INHIBITORS] EDEMA enalapril Allergy Severe Anaphylaxis Verified 11/03/23 12:24 erythromycin base Allergy Severe HIVES ALL Verified 11/03/23 12:24 [ERYTHROMYCIN BASE] OVER metformin Allergy Unknown Verified 12/24/23 13:14 hydromorphone [From DILAUDID] AdvReac Severe TINGLING, Verified 11/03/23 12:24 PT DOES NOT LIKE THE FEELING MED GIVES HER Review of Systems 2 Review of Systems: As per HPI. Yes all other systems are reviewed and are negative Constitutional: Constitutional: Reports as per HPI COUNTS INCLUDE 234 BEDS AT THE [facility] Past Medical History Medical History History of back pain History of neuropathy Smokes tobacco daily Opioid dependence Nephrolithiasis Hyperlipidemia HTN (hypertension) Cardiomyopathy Myocardial infarction CAD (coronary artery disease) Cough Hypothyroidism, postsurgical Tubular adenoma Diabetes MCKAY (obstructive sleep apnea) Irritable bowel syndrome Hyperthyroidism Polycythemia Smoker Hypoxia COPD exacerbation Lesion of bronchus Tracheal anomaly Multinodular goiter Vitamin D deficiency Atelectasis Subclinical hyperthyroidism Goiter Pneumonia Pulmonary nodules COPD (chronic obstructive pulmonary disease) Surgical History History of coronary artery stent placement Hx of thyroidectomy History of thyroid surgery History of esophagogastroduodenoscopy (EGD) Hx of colonoscopy History of back surgery History of ureterostomy S/P lumpectomy, right breast History of cholecystectomy History of tonsillectomy Family History Family History Father No problems noted. Mother No problems noted. Paternal Aunt Diabetes Social History Social History Household Members: Spouse Housing: House Do you presently have visiting nurse or other home services: No Alcohol intake: never Comment: pt refused bed alarm/camera Patient Tobacco Use Status: Current everyday Tobacco user Tobacco use type: Cigarette Cigarette Packs Per Day: 0.5 Cigarettes Per Day: 6 Smoked in Last 30 Days: Yes e-Cigarette/Vaping Use: Never Used Second Hand Smoke Exposure: Yes Use of substances other than those prescribed or required for medical reasons: Yes Substance Use Type: Marijuana Substance Use Frequency: Occasionally Advance Directives: Yes Advance Directives on File: Yes Advance Directives Date on File: 01/24/21 Patient : No service: No Current occupational status: disabled Physical Exam ED Vital Signs: Vital Signs - 24 hr 12/24/23 13:12 12/24/23 13:15 12/24/23 14:47 Temperature 98.0 F Pulse Rate 81 83 85 Respiratory Rate 20 20 17 Blood Pressure 146/62 H 140/72 H Pulse Oximetry 93 92 94 Oxygen Delivery Method Room Air Room Air Room Air 12/24/23 16:22 Temperature 0 F L Pulse Rate 85 Respiratory Rate 17 Blood Pressure 140/72 H Pulse Oximetry 94 Oxygen Delivery Method Room Air BMI result Body Mass Index 28.3 Vital signs have been reviewed and appear to be correct. Blood pressure normal. Heart rate normal. Respiratory rate normal. Temperature normal. Oxygen saturation normal. Const General: cooperative, healthy appearing and no acute distress Orientation/consciousness: oriented to person, oriented to place, oriented to time and patient oriented x3 Limitations: no limitations HENMT Head: Yes normocephalic and Yes atraumatic Ears: external ears normal General nose exam: Normal external nose present Face and sinus: Yes face symmetric Mouth: oropharynx normal and moist mucous membranes Throat: Yes uvula midline Eyes Pupils: Equal, round and reactive pupils present Neck Neck: Yes normal visual inspection and Yes supple Resp Effort & Inspection: normal respiratory effort and able to speak in complete sentences Auscultation: clear to auscultation bilaterally Cardio Rate: regular rate Rhythm: regular rhythm Heart sounds: S1 normal heart sound present and S2 normal heart sound present GI Palpation (GI): Soft to palpation and nontender Auscultation: normoactive bowel sounds General: Yes no CVA tenderness Back/Spine/Pelvis Back: no CVA tenderness Skin General skin exam: elasticity normal and turgor normal Neuro General: oriented to person, oriented to place, oriented to time, patient oriented x3, moves all extremities, no focal motor deficits and CN's II-XI intact bilaterally Cranial nerves: Yes Equal, round and reactive pupils present Cognition (Neuro): normal cognition Extrem General: Yes full ROM, Yes no pedal edema and Yes no calf tenderness Psych Mental Status: mental status grossly normal Affect: normal affect Thought process: Normal thought process present Medical Decision Making Medical Decision Making MDM Narrative: Patient is a 62-year-old female with history of COPD not on home O2, HTN, smoker, cardiomyopathy, CAD, DM, MCKAY, IBS presenting to the ED with complaint of shortness of breath, worse with exertion from home. On exam patient is awake, A+Ox3, mildly hypoxic on room air, VS WNL, afebrile, normal neurological exam without focal deficits, physical exam findings as above. Given reported symptoms and physical exam findings, initial differential includes COPD exacerbation, viral illness, flu, Covid, bronchitis, pneumonia. Labs notable for slight leukocytosis, no significant electrolyte abnormalities, negative troponin. Viral serology negative. Chest x-ray is without evidence of pneumonia. My interpretation is in agreement with the radiologist's interpretation. Patient reports significant improvement in symptoms after medications given by EMS, did not require additional medications in the ED. She is maintaining an O2 sat of 94-95% on room air. She is requesting discharge home, feel she is stable enough for this. Will discharge on doxycycline and prednisone. Follow up with PCP. Return precautions discussed. Patient verbalized understanding of and agreement with plan. Differential Diagnosis Differential Diagnoses: The differential diagnosis associated with the presentation includes as per [facility] Admission/Observation Consideration of admission/observation: Escalation of care including admission/observation considered Patient would have been admitted to the hospital had their work up had any findings where hospital admission was appropriate and their clinical presentation warranted hospital admission. Lab Data [facility] [place] Lab Attestation statement: I reviewed the patient's lab results. As per [facility] [place] 12/24/23 13:50 12/24/23 13:50 Labs: Lab Results 12/24/23 12/24/23 12/24/23 Range/Units 13:50 13:51 14:17 WBC 13.6 H (4.8-10.8) X10*3/uL RBC 5.39 (4.20-5.50) X10*6/uL Hgb 16.2 H (12.0-16.0) g/dl Hct 49.4 H (37.0-47.0) % MCV 91.7 (80.0-98.0) fL MCH 30.1 (27.0-33.0) pg MCHC 32.8 (31.0-35.0) g/dl RDW 13.9 (11.0-16.0) % Plt Count 207 (160-400) X10*3/uL MPV 10.1 (9.4-12.3) fL Immature Gran % (Auto) 1.0 H (0.0-0.4) % Neut % (Auto) 85.7 H (45-73) % Lymph % (Auto) 10.4 L (20-40) % Stanton % (Auto) 1.4 L (2-11) % Eos % (Auto) 0.6 (0-4) % Baso % (Auto) 0.9 (0-2) % Lymph # (Auto) 1.4 (1.2-4.9) X10*3/uL Stanton # (Auto) 0.2 (0.1-1.2) X10*3/uL Eos # (Auto) 0.1 (0.0-0.4) X10*3/uL Baso # (Auto) 0.1 (0.0-0.2) X10*3/uL Abs Immat Gran (auto) 0.13 H (0.00-0.03) X10*3/uL Absolute Neuts (auto) 11.7 H (2.0-8.3) x10*3/uL Absolute Nucleated RBC 0.000 (0.0-0.012) X10*3/uL Nucleated RBC % (auto) 0.0 (0.0-0.2) /100WBC VBG pH (7.32-7.43) VBG pCO2 mmHg VBG pO2 mmHg VBG HCO3 (22-26) mmol/L VBG O2 Saturation % VBG Base Excess mmol/L Sodium 144 (135-145) mmol/L Potassium 4.1 (3.3-5.1) mmol/L Chloride 112 H (96-108) mmol/L Carbon Dioxide 22 (22-29) mmol/L Anion Gap 14 (12-20) BUN 16 (9-16) mg/dL Creatinine 0.82 (0.5-1.4) mg/dL Estim Creat Clear Calc 72.1 Estimated GFR > 60 Random Glucose 187 H (60-115) mg/dL Lactic Acid 1.0 (0.5-2.0) mmol/L Calcium 8.8 D (8.4-10.2) mg/dL Total Bilirubin 0.8 (0.0-1.0) mg/dL AST 20 (5-31) U/L ALT 25 (0-31) U/L Alkaline Phosphatase 59 (39-117) U/L Troponin I High Sens 2.9 (<3.5-17.0) ng/L B-Natriuretic Peptide 41 (<100) pg/mL Total Protein 6.8 (6.5-8.0) g/dL Albumin 4.0 (3.5-5.0) g/dL Influenza Type A (PCR) NEGATIVE (Negative) Influenza Type B (PCR) NEGATIVE (Negative) RSV RNA Qual (PCR) NEGATIVE (Negative) SARS-CoV-2 RNA (RT-PCR) NEGATIVE (Negative) 12/24/23 Range/Units 14:21 WBC (4.8-10.8) X10*3/uL RBC (4.20-5.50) X10*6/uL Hgb (12.0-16.0) g/dl Hct (37.0-47.0) % MCV (80.0-98.0) fL MCH (27.0-33.0) pg MCHC (31.0-35.0) g/dl RDW (11.0-16.0) % Plt Count (160-400) X10*3/uL MPV (9.4-12.3) fL Immature Gran % (Auto) (0.0-0.4) % Neut % (Auto) (45-73) % Lymph % (Auto) (20-40) % Stanton % (Auto) (2-11) % Eos % (Auto) (0-4) % Baso % (Auto) (0-2) % Lymph # (Auto) (1.2-4.9) X10*3/uL Stanton # (Auto) (0.1-1.2) X10*3/uL Eos # (Auto) (0.0-0.4) X10*3/uL Baso # (Auto) (0.0-0.2) X10*3/uL Abs Immat Gran (auto) (0.00-0.03) X10*3/uL Absolute Neuts (auto) (2.0-8.3) x10*3/uL Absolute Nucleated RBC (0.0-0.012) X10*3/uL Nucleated RBC % (auto) (0.0-0.2) /100WBC VBG pH 7.45 H (7.32-7.43) VBG pCO2 30 mmHg VBG pO2 65 mmHg VBG HCO3 21 L (22-26) mmol/L VBG O2 Saturation 92.0 % VBG Base Excess -1.0 mmol/L Sodium (135-145) mmol/L Potassium (3.3-5.1) mmol/L Chloride (96-108) mmol/L Carbon Dioxide (22-29) mmol/L Anion Gap (12-20) BUN (9-16) mg/dL Creatinine (0.5-1.4) mg/dL Estim Creat Clear Calc Estimated GFR Random Glucose (60-115) mg/dL Lactic Acid (0.5-2.0) mmol/L Calcium (8.4-10.2) mg/dL Total Bilirubin (0.0-1.0) mg/dL AST (5-31) U/L ALT (0-31) U/L Alkaline Phosphatase (39-117) U/L Troponin I High Sens (<3.5-17.0) ng/L B-Natriuretic Peptide (<100) pg/mL Total Protein (6.5-8.0) g/dL Albumin (3.5-5.0) g/dL Influenza Type A (PCR) (Negative) Influenza Type B (PCR) (Negative) RSV RNA Qual (PCR) (Negative) SARS-CoV-2 RNA (RT-PCR) (Negative) Independent Interpretation I performed an independent interpretation of an: EKG (normal sinus rhythm, rate 85 bpm, normal VT interval and QTc) Interpretation: No evidence of pneumonia on cxr Radiology Impression Discussion of test interpretation with radiology: I have reviewed the radiologist's reading. Radiologist Impression: XR/XR chest 2V IMPRESSION: Unremarkable examination. No interval change External Record Review External record reviewed: Inpatient record and Office record Prescription Management I considered prescription management with: Antibiotic and Other Discharge Plan Discharge Clinical Impression: COPD (chronic obstructive pulmonary disease) Patient Disposition: Home, Self-Care Instructions: COPD (Chronic Obstructive Pulmonary Disease) (DC) Additional Instructions: You were evaluated in the emergency department today for shortness of breath. Your evaluation did not show evidence of conditions requiring emergent medical treatment at this time and your symptoms improved with medications given prior to arrival. It is likely that your symptoms were related to your COPD. You are being treated with a course of steroids to decrease inflammation as well as an antibiotic. Follow-up with your primary care provider within the next 2 days. Return to the emergency department if you develop worsening shortness of breath or difficulty breathing, chest pain or palpitations, fever or any other concerning symptoms. Prescriptions: New prednisone 20 mg tablet 40 mg PO DAILY Qty: 10 0RF doxycycline hyclate 100 mg capsule 100 mg PO BID Qty: 10 0RF No Action cholecalciferol (vitamin D3) [Vitamin D3] 50 mcg (2,000 unit) capsule 50 mcg PO DAILY Qty: 90 11RF albuterol sulfate [Ventolin HFA] 90 mcg/actuation HFA aerosol inhaler 2 puff inhalation Q4-6H PRN (Reason: for wheezing) Qty: 18 11RF levothyroxine 112 mcg tablet 112 mcg PO DAILY Qty: 30 5RF pyridoxine (vitamin B6) 50 mg tablet 50 mg PO DAILY 90 Days Qty: 90 3RF prednisone 5 mg tablet 5 mg PO DAILY Qty: 30 3RF roflumilast 500 mcg tablet 500 mcg PO DAILY Qty: 30 11RF methocarbamol 500 mg tablet 1,000 mg PO BID-TID PRN (Reason: for muscle spasm) Qty: 120 0RF Trelegy Ellipta 100-62.5-25 mcg blister with device 1 ea inhalation DAILY Qty: 1 0RF prednisone 20 mg tablet See Rx Instructions PO DAILY 10 Days Qty: 15 0RF Rx Instructions: PO daily; Take 2 tabs daily x 5 days, then 1 tablet daily x 5 days doxycycline hyclate 100 mg capsule 100 mg PO BID 10 Days Qty: 20 0RF docusate sodium 100 mg capsule 1 cap PO BID insulin glargine [Lantus Solostar U-100 Insulin] 100 unit/mL (3 mL) Insulin Pen 30 unit SUBCUT BID Qty: 15 0RF Rx Instructions: PER PATIENT, MAY REQUIRE HIGHER DOSES WHEN ON STEROIDS insulin lispro [Humalog KwikPen Insulin] 100 unit/mL Insulin Pen 1 sliding scale dose SUBCUT TIDAC Protocol: Insulin Correction Scale Less than or equal to 110 ---- Give (units): 0 111 to 150 Give (units): 0 151 to 200 Give (units): 2 201 to 250 Give (units): 4 251 to 300 Give (units): 6 301 to 350 Give (units): 8 Greater than 350 Give (units): 10 Call MD if Blood Glucose > : 350 Rx Instructions: 6-10 before meals calcium citrate-vitamin D3 315 mg-6.25 mcg (250 unit) tablet 2 tab PO QID ipratropium-albuterol 0.5 mg-3 mg(2.5 mg base)/3 mL solution for nebulization 3 ml inhalation QID PRN (Reason: Shortness Of Breath Or Wheezing) sennosides [senna] 8.6 mg Tablet 17.2 mg PO BEDTIME PRN (Reason: Constipation) tamsulosin 0.4 mg capsule 0.4 mg PO BEDTIME 14 Days Qty: 14 0RF phenazopyridine [Pyridium] 100 mg tablet 100 mg PO TID PRN (Reason: Spasm) 4 Days Qty: 12 0RF Combivent Respimat 20-100 mcg/actuation mist 2 puff inhalation BID Rx Instructions: space evenly during waking hours omeprazole 20 mg capsule,delayed release(DR/EC) 20 mg PO BID@0630,1630 aspirin 81 mg tablet,delayed release (DR/EC) 81 mg PO BEDTIME carvedilol 6.25 mg tablet 6.25 mg PO BID atorvastatin 80 mg tablet 80 mg PO BEDTIME Protocol: Hold for SBP< HOLD for SBP < : 90 montelukast 10 mg tablet 10 mg PO BEDTIME cetirizine 10 mg tablet 10 mg PO DAILY fluticasone propionate 50 mcg/actuation spray,suspension 1 spray intranasal DAILY PRN (Reason: Congestion) (DME) lancets [TRUEplus Lancets] 33 gauge misc See Rx Instructions .ROUTE TID Qty: 100 Rx Instructions: As directed (DME) FreeStyle Lite Strips Strip See Rx Instructions .ROUTE TID Qty: 10 Rx Instructions: As directed naloxone 4 mg/actuation spray,non-aerosol 1 spray intranasal ONCE PRN (Reason: Opioid Overdose) oxycodone-acetaminophen 7.5-325 mg tablet 1 tab PO Q6H Trulicity 1.5 mg/0.5 mL pen injector 1.5 mg subcut REESE@0900 pregabalin [Lyrica] 75 mg capsule 75 mg PO BID nicotine 21 mg/24 hr patch 24 hour 1 patch transdermal DAILY 28 Days Qty: 28 6RF (DME) nebulizers Misc See Rx Instructions .Route Rx Instructions: As directed (DME) HANK Elbow Brace Misc See Rx Instructions .Route Qty: 1 0RF Rx Instructions: As directed celecoxib [Celebrex] 200 mg capsule 200 mg PO BID PRN (Reason: pain) Qty: 60 0RF Rx Instructions: Take it with food and full glass of water. Avoid other NSAIDs. lidocaine 5 % adhesive patch,medicated See Rx Instructions topical DAILY Qty: 30 1RF Rx Instructions: leave on most painful area for up to 12 hrs topically daily; Interventions: ED Discharge Assessment Last Done: 12/24/23 16:22 Discharge Date/Time: 12/24/23 16:23 Print Language: Albanian
[2023-12-24 13:15] VITALS: PULSE 83; RESP 20; O2SAT 92
[2023-12-24 14:00] LABS: MANUAL DIFF FLAG NO
[2023-12-24 14:05] LABS: Basophils Absolute Auto 0.1 X10*3/uL (0.0-0.2); Basophils Percent Auto 0.9 % (0-2); Eosinophils Absolute Auto 0.1 X10*3/uL (0.0-0.4); Eosinophils Percent Auto 0.6 % (0-4); Hematocrit 49.4 % (37.0-47.0); Hemoglobin 16.2 g/dl (12.0-16.0); Imm Gran Abs Auto 0.13 X10*3/uL (0.00-0.03); Lymphocytes Absolute Auto 1.4 X10*3/uL (1.2-4.9); Lymphocytes Percent Auto 10.4 % (20-40); Mean Corpuscular HGB Conc 32.8 g/dl (31.0-35.0); Mean Corpuscular Hemoglobin 30.1 pg (27.0-33.0); Mean Corpuscular Volume 91.7 fL (80.0-98.0); Mean Platelet Volume 10.1 fL (9.4-12.3); Monocytes Absolute Auto 0.2 X10*3/uL (0.1-1.2); Monocytes Percent Auto 1.4 % (2-11); Neutrophils Absolute Auto 11.7 x10*3/uL (2.0-8.3); Neutrophils Percent Auto 85.7 % (45-73); Platelet Count 207 X10*3/uL (160-400); Red Blood Count 5.39 X10*6/uL (4.20-5.50); Red Cell Distribution Width 13.9 % (11.0-16.0); White Blood Count 13.6 X10*3/uL (4.8-10.8)
[2023-12-24 14:17] LABS: Alanine Aminotransferase 25 U/L (0-31); Alkaline Phosphatase 59 U/L (39-117); Anion Gap 14 (12-20); Aspartate Amino Transferase 20 U/L (5-31); Bilirubin Total 0.8 mg/dL (0.0-1.0); Blood Urea Nitrogen 16 mg/dL (9-16); Calcium 8.8 mg/dL (8.4-10.2); Carbon Dioxide 22 mmol/L (22-29); Chloride 112 mmol/L (96-108); Creatinine Clr Calc Pharmacy 72.1; Estimated Glomerular Filt Rate > 60; Glucose Random 187 mg/dL (60-115); Potassium 4.1 mmol/L (3.3-5.1); Sodium 144 mmol/L (135-145); Total Protein 6.8 g/dL (6.5-8.0)
[2023-12-24 14:25] LABS: Troponin-I High Sensitivity 2.9 ng/L (<3.5-17.0)
[2023-12-24 14:25] LABS: VBG HCO3 21 mmol/L (22-26); VBG pCO2 30 mmHg; VBG pH 7.45 (7.32-7.43); VBG pO2 65 mmHg
[2023-12-24 14:25] LABS: Venous Blood Gas Refer to POC result
[2023-12-24 14:42] LABS: B Type Natriuretic Peptide 41 pg/mL (<100)
[2023-12-24 14:45] LABS: Influenza A PCR NEGATIVE (Negative); Influenza B PCR NEGATIVE (Negative); Resp Syncy Virus RNA Qual PCR NEGATIVE (Negative); SARS COV2 PCR INHOUSE NEGATIVE (Negative)
[2023-12-24 14:47] VITALS: BP 140/72; PULSE 85; RESP 17; O2SAT 94
[2023-12-24 16:22] VITALS: BP 140/72; PULSE 85; RESP 17; TEMP -17.7; TEMP 0; O2SAT 94
== END 2023-12-24 16:23 | disposition home or self-care (01) ==
PROVIDERS: Registered Nurse Emergency; Emergency Provider Student in an Organized Health Care Education/Training Program; PCP Internal Medicine Geriatric Medicine
DX: J44.9 Chronic obstructive pulmonary disease, unspecified (principal); R06.02 Shortness of breath; R94.31 Abnormal electrocardiogram [ECG] [EKG]; I10 Essential (primary) hypertension; F17.210 Nicotine dependence, cigarettes, uncomplicated; Z03.818 Encounter for observation for suspected exposure to other biological agents ruled out; Z79.899 Other long term (current) drug therapy
CPT/HCPCS: 0241U; 36415; 71046; 80053; 82803; 83605; 83880; 84484; 85025; 87040; 93005; 99283; 99285

== ENCOUNTER 2023-12-29 11:09 | Outpatient (REF) | payer OTHER, SELFPAY ==
[2023-12-29 13:41] LABS: Alanine Aminotransferase 27 U/L (0-31); Albumin Level 3.9 g/dL (3.5-5.0); Alkaline Phosphatase 54 U/L (39-117); Anion Gap 14 (12-20); Aspartate Amino Transferase 17 U/L (5-31); Bilirubin Total 0.8 mg/dL (0.0-1.0); Blood Urea Nitrogen 23 mg/dL (9-16); Calcium 8.9 mg/dL (8.4-10.2); Carbon Dioxide 26 mmol/L (22-29); Chloride 110 mmol/L (96-108); Cholesterol 140 mg/dL (<200); Estimated Glomerular Filt Rate > 60; Glucose Random 113 mg/dL (60-115); HDL Cholesterol 45 mg/dL (>40); LDL Cholesterol Calculated 61 mg/dL (<100); Potassium 3.8 mmol/L (3.3-5.1); Sodium 146 mmol/L (135-145); Total Protein 6.7 g/dL (6.5-8.0); Triglycerides 172 mg/dL (<150)
[2023-12-29 13:57] LABS: Creatinine Urine 157.96 mg/dL; Microalbum/Creatinine Ratio Ur 29.7 ug/mg cr (<30)
== END 2023-12-29 11:10 | disposition home or self-care (01) ==
LOC: HO.HHCL 11:09
PROVIDERS: Visit Provider Internal Medicine Geriatric Medicine
DX: E11.8 Type 2 diabetes mellitus with unspecified complications (principal); I25.10 Atherosclerotic heart disease of native coronary artery without angina pectoris; M79.675 Pain in left toe(s)
CPT/HCPCS: 36415; 80053; 80061; 82043; 82570

== ENCOUNTER 2024-01-22 12:24 | Outpatient (REF) | payer OTHER, SELFPAY | END 2024-01-22 12:25 | disposition home or self-care (01) | LOC: HO.US 12:24 | PROVIDERS: PCP Internal Medicine Geriatric Medicine; Visit Provider Urology | DX: N20.0 Calculus of kidney (principal) | CPT/HCPCS: 76775 ==

== ENCOUNTER 2024-02-05 09:46 | Outpatient (AMB) | payer OTHER, SELFPAY ==
--- NOTE | 2024-02-05 09:57 | MHC.OFFVIS ---
Vital Signs 02/05/24 10:01 Height 5 ft 5 in Weight 171 lb 15.369 oz BMI 28.6 BP 118/68 Blood Pressure Location Lt brachial Position Sitting Pulse 81 Pulse Source Pulse Oximeter Pulse Oximetry (%) 94 Oxygen Delivery Method Room Air Intake Visit Reasons: COPD Die Sinker Required: No Full Fashioned Garment Knitter: Full Fashioned Garment Knitter offered & declined Accompanied by: Self / Same As Patient Allergies HANK Inhibitors [HANK INHIBITORS] Allergy (Severe, Verified 02/05/24 09:59) ANGIO EDEMA enalapril Allergy (Severe, Verified 02/05/24 09:59) Anaphylaxis erythromycin base [ERYTHROMYCIN BASE] Allergy (Severe, Verified 02/05/24 09:59) HIVES ALL OVER metformin Allergy (Verified 02/05/24 09:59) Unknown hydromorphone [From DILAUDID] Adverse Reaction (Severe, Verified 02/05/24 09:59) TINGLING, PT DOES NOT LIKE THE FEELING MED GIVES HER Medication List - Last Reconciled 02/05/24 by Monae Granado LPN arm brace (HANK Elbow Brace) As directed aspirin 81 mg PO BEDTIME atorvastatin 80 mg See Protocol PO BEDTIME blood sugar diagnostic (FreeStyle Lite Strips) As directed calcium citrate-vitamin D3 315 mg-6.25 mcg (250 unit) 2 tabs PO QID carvedilol 6.25 mg PO BID celecoxib (Celebrex) 200 mg PO BID PRN cetirizine 10 mg PO DAILY cholecalciferol (vitamin D3) (Vitamin D3) 50 mcg PO DAILY docusate sodium 1 cap PO BID doxycycline hyclate 100 mg PO BID doxycycline hyclate 100 mg PO BID 10 days dulaglutide (Trulicity) 1.5 mg subcut REESE@0900 fluticasone propionate 50 mcg/actuation 1 spray intranasal DAILY PRN swyxplvtflm-wltclnqsq-coygvxnt 100-62.5-25 mcg (Trelegy Ellipta) 1 ea inhalation DAILY insulin glargine (Lantus Solostar U-100 Insulin) 30 units (0.3 mL) subcut BID insulin lispro (Humalog KwikPen (U-100) Insulin) 1 sliding scale dose See Protocol subcut TIDAC ipratropium-albuterol 0.5 mg-3 mg(2.5 mg base)/3 mL 3 mL inhalation QID PRN ipratropium-albuterol 20-100 mcg/actuation (Combivent Respimat) 2 puffs inhalation BID lancets (TRUEplus Lancets) As directed levothyroxine 112 mcg PO DAILY lidocaine 5% leave on most painful area for up to 12 hrs topically daily; methocarbamol 1,000 mg (2 x 500 mg) PO BID-TID PRN montelukast 10 mg PO BEDTIME naloxone 4 mg/actuation 1 spray intranasal ONCE PRN nebulizers As directed nicotine 1 patch transdermal DAILY 28 days omeprazole 20 mg PO BID@0630,1630 oxycodone-acetaminophen 7.5-325 mg 1 tab PO Q6H phenazopyridine (Pyridium) 100 mg PO TID PRN 4 days prednisone 40 mg (2 x 20 mg) PO DAILY prednisone 5 mg PO DAILY prednisone PO daily; Take 2 tabs daily x 5 days, then 1 tablet daily x 5 days 10 days pregabalin 75 mg PO BID 30 days pyridoxine (vitamin B6) 50 mg PO DAILY 90 days roflumilast 500 mcg PO DAILY sennosides (senna) 17.2 mg PO BEDTIME PRN tamsulosin 0.4 mg PO BEDTIME 14 days Ventolin HFA 90 mcg/actuation (albuterol sulfate) 2 puffs inhalation Q4-6H PRN NS HPI Comments Details: The patient is a 63-year-old woman with a known history of COPD and former smoker. She has had multiple hospitalizations for her COPD exacerbations. Also requiring multiple prednisone tapers in currently on chronic prednisone 5 mg daily. She was evaluated in the hospital back in April and in July. She did have chest x-rays demonstrating bilateral hazy opacities. On repeat x-rays from October 2019 it appeared that she still has a persistent opacity in the right infrahilar area. Therefore, CT scan of the chest is warranted. The patient is no longer smoking that she quit 2 years ago. However, she still exposed to secondhand smoke. She continues use her nebulizer 1 or twice a day. And she continues to use her respiratory regimen with partial resolution of her symptoms. She does complaint of shortness of breath [id number] severity with activity. And she also complains of cough usually productive in nature with either wider yellowish sputum. In the office we did have her go for 6 minutes walk test. She was able to ambulate 700 ft. Her Hillary score was 7/10 suggesting that she was in the dyspneic. Her pulse ox was indeed reassuring 94-95% throughout the ambulation. 01/24/2022 the patient is here for a pulmonary follow-up visit. Since we last spoke she has had a tough few weeks. Beginning December she started developing worsening respiratory symptoms with cough. Ultimately now her cough has become more productive greenish in color. During the last time I saw her back in the springtime she did have a COPD exacerbation requiring antibiotics and prednisone. Now with her symptoms getting worse she was able to take 20 mg of prednisone that she had and she did feel little better. She did have a CT scan of the chest sometime in the beginning of December demonstrating areas of ground-glass opacities. It is likely that she possibly had a lower respiratory viral infection and ultimately resulted in a postviral bacterial infection. She continues use her nebulizers. On examination she does have some wheezing and rhonchi. 07/25/2022 the patient is here for pulmonary follow-up visit. Since we last spoke patient ended up going to the [facility] with COPD exacerbation. She had acute respiratory failure home. She was treated for about 3-4 days since she was released. The patient had a chest x-ray demonstrating atelectasis. She was able to wean off the oxygen when she went home. Unfortunately she continues to smoke cigarettes. She also has issues with hyperparathyroidism and she has lost significant amount of weight. She recently saw her primary care doctor was placed on prednisone for COPD exacerbation. She is bringing up some mucus although is clear. The patient has allergies to antibiotics including macrolides. We did go for brief walking oximetry and she did very well maintaining a pulse ox noted. 11/24/2022 the patient is here for pulmonary follow-up visit. Overall the patient has been losing weight. She was diagnosed with apparently Lori disease, hyperthyroidism. She needs to undergo surgery. The patient is here for preoperative evaluation. She continues on the Trelegy inhaler which has been affecting beneficial. She has not required any additional prednisone. She does take 5 mg daily. She recently had a fall and she factor multiple bones but she healed okay which is reassuring. She continues to smoke unfortunately. She is trying to cut down before surgery. She did do well with Chantix in the past she quit smoking for 3 years on it. Then she tried again and cause severe nausea and vomiting and she had to stop it. I do believe that she should restarted or consider a 3rd course possibly after surgery. We did have her undergo pulmonary function studies spirometry in the office. It appears that she does have a severe obstruction consistent with severe COPD. Therefore explained to the patient that she is high risk for perioperative pulmonary complications which include COPD exacerbations, atelectasis, hypoxia, pneumonia and prolonged mechanical ventilation. At least a pulmonary standpoint the patient is medically optimize. The patient is able to proceed with anesthesia and surgery understanding that she is high risk for these potential complications. 09/17/2023 the patient is here for a pulmonary follow-up visit overall the patient doing fairly well. She did have to call the dispatch because she was having difficulty breathing. She was given a short course of prednisone and now back to her based on prednisone 5 mg. She states that after her thyroid surgery back in the fall of 2022 her breathing has not been complete normal. She has had some just increased work of breathing but at this point is gotten better. Will continue to monitor her progress although right now her breathing is good I do not appreciate any stridor and she does not have any wheezing on examination. Therefore her respiratory therapy is stable. She is having issues with kidney stones. The patient is scheduled to undergo lithotripsy at this point. She will need to be under anesthesia. She does have increased risk for perioperative pulmonary complications due to her COPD and her chronic steroids but at this point she is medically optimize and is able to proceeding consent for anesthesia and surgery. We did review her chest x-ray that she had back in March 2023 demonstrating no acute disease which is reassuring. She is scheduled for CT scan of the chest because will monitoring closely pulmonary nodules in her lung cancer screening. Will plan to follow-up in 6 months with pulmonary function studies to assess her flow volume loop. 10/28/2023 the patient is here for a pulmonary follow-up visit. Recently she had to go on a prednisone taper for an asthma flare-up. She is down to her baseline prednisone. Now she is concerned about her sugars being elevated and therefore she may have to hold her orthopedic surgery. She will be seeing her hand surgeon soon. She will have additional blood work. As long she is able to taper off the prednisone and she is on her maintenance therapy and she is doing well she can proceed with anesthesia and surgery. When she completes couple more days of antibiotics. She will let me know how she is doing and if she feels like the symptoms are rebounding then she can be prescribed additional medications then. She needs to quit smoking. I did send the nicotine patch to the pharmacy. We did look at her CT scan of the chest which demonstrates bronchitis and some degree of atelectasis and some minimal emphysema but her lung parenchyma still fairly viable and she quit smoking she can least have normal lung capacity. 02/05/2024 the patient is here for a pulmonary follow-up visit. Overall she is doing a little bit worse. She feels like the allergies are bothering her causing to have worsening cough wheezing chest tightness. She continues to be on maximize respiratory therapy. Unfortunately she continues to smoke cigarettes as well that is hindering her effect of the inhalers. Although she did call the ER with worsening respiratory symptoms back in early December. At that time the patient was found to have a significant degree of eosinophilia of 600. 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 In the meantime she knows she needs to quit smoking in order to allow the therapy to work. The patient has not been taking part of the lung cancer screening program. She was doing it elsewhere. She has not had a CT scan in some time. I will put a referral in for that. She will continue with the Trelegy inhaler. She does have significant wheezing on examination so therefore I will send her another course of prednisone will be wait for the Dupixent. The patient will also undergo blood work she is concerned for mold allergies. Will go ahead and do additional allergy testing at this time. [facility] Medical History (Updated 02/07/24 @ 21:01 by Fidel White MD) Asthma-COPD overlap syndrome Allergies History of back pain History of neuropathy Smokes tobacco daily Opioid dependence Nephrolithiasis Hyperlipidemia HTN (hypertension) Cardiomyopathy Myocardial infarction CAD (coronary artery disease) Cough Hypothyroidism, postsurgical Tubular adenoma Diabetes MCKAY (obstructive sleep apnea) Irritable bowel syndrome Hyperthyroidism Polycythemia Smoker Hypoxia COPD exacerbation Lesion of bronchus Tracheal anomaly Multinodular goiter Vitamin D deficiency Atelectasis Subclinical hyperthyroidism Goiter Pneumonia Pulmonary nodules COPD (chronic obstructive pulmonary disease) Surgical History History of coronary artery stent placement Hx of thyroidectomy History of thyroid surgery History of esophagogastroduodenoscopy (EGD) Hx of colonoscopy History of back surgery History of ureterostomy S/P lumpectomy, right breast History of cholecystectomy History of tonsillectomy Family History Father No problems noted. Mother No problems noted. Paternal Aunt Diabetes Social History (Updated 02/05/24 @ 10:01 by Monae Granado LPN) Household Members: Spouse Housing: House Do you presently have visiting nurse or other home services: No Alcohol intake: never Comment: pt refused bed alarm/camera Patient Tobacco Use Status: Current everyday Tobacco user Tobacco use type: Cigarette Cigarette Packs Per Day: 0.5 Cigarettes Per Day: 10 e-Cigarette/Vaping Use: Never Used Second Hand Smoke Exposure: Yes Substance Use Type: Marijuana Advance Directives Date on File: 01/24/21 service: No Current occupational status: disabled Review of Systems Const Reports weight loss ENT Denies change in voice, Denies lip swelling, Denies mouth pain, Reports nasal congestion, Reports nasal discharge and Denies tongue swelling Card Denies chest pain and Denies dyspnea on exertion Resp Denies chest congestion, Reports cough and Denies dyspnea on exertion GI Denies abdominal pain Musc Denies no additional complaints Neuro Denies Neuro-related abnormal movements Psych Denies no additional complaints Alberto/Lymph Denies easy bleeding and Denies lymphadenopathy Aller/Immun Denies lip swelling and Denies tongue swelling Physical Exam Vital Signs: Last Vital Signs Pulse 81 02/05/24 10:01 BP 118/68 02/05/24 10:01 Pulse Ox 94 02/05/24 10:01 Oxygen Delivery Method Room Air 02/05/24 10:01 BMI result Body Mass Index 28.6 Const General: healthy appearing, no acute distress and well developed Nutritional Appearance: well nourished Orientation/consciousness: patient oriented x3 HEENT Head: Yes normal to inspection, Yes normocephalic and Yes atraumatic Face and sinus: Yes normal facial exam Mouth: Normal oral and palatal mucosa present Throat: Yes posterior oropharynx normal, Yes tonsils normal and Yes uvula midline Neck Neck: Yes normal visual inspection, Yes full ROM and Yes trachea midline Thyroid: Thyroid normal Chest Chest palpation & inspection: normal inspection of the chest Resp Effort & Inspection: normal respiratory effort and no tracheal deviation Auscultation: no wheezes and diminished lung sounds Cardio Rate: regular rate Heart sounds: S1 normal heart sound present, S2 normal heart sound present, no gallops and no murmurs GI Inspection: No distended Palpation (GI): Soft to palpation Skin General skin exam: no rashes or lesions noted Neuro General: patient oriented x3 Extrem General: Yes no clubbing, cyanosis or edema Psych Appearance: grossly normal Mental Status: mental status grossly normal Speech and movement: Normal speech and movement present Affect: normal affect Attitude: cooperative Thought process: Normal thought process present Thought content: Normal thought content present Insight: Good insight present (Psych) Judgement: Good judgement present (Psych) Quality Reporting (2019) Adult ([facility] 13805/21/68) Smoking risk assessment performed?: Yes Patient Tobacco Use Status: Current everyday Tobacco user Assessment & Plan Assessment & Plan (1) Atelectasis: Code(s): J98.11 - Atelectasis Category: Medical (2) COPD (chronic obstructive pulmonary disease): Code(s): J44.9 - Chronic obstructive pulmonary disease, unspecified Category: Medical Qualifiers: COPD type: unspecified COPD Qualified Code(s): J44.9 - Chronic obstructive pulmonary disease, unspecified (3) MCKAY (obstructive sleep apnea): Code(s): G47.33 - Obstructive sleep apnea (adult) (pediatric) Category: Medical (4) Pulmonary nodules: Code(s): R91.8 - Other nonspecific abnormal finding of lung field Category: Medical (5) Cough: Code(s): R05.9 - Cough, unspecified Category: Medical Qualifiers: Cough type: chronic Qualified Code(s): R05.3 - Chronic cough (6) Allergies: Code(s): T78.40XA - Allergy, unspecified, initial encounter Category: Medical Qualifiers: Encounter type: initial encounter Qualified Code(s): T78.40XA - Allergy, unspecified, initial encounter (7) Asthma-COPD overlap syndrome: Code(s): J44.89 - Other specified chronic obstructive pulmonary disease Category: Medical Plan Continue Trelegy Duoneb/Combivent as needed Prednisone taper then continue Prednisone 5mg daily start Doxycycline Needs to stop smoking: nicotine patch continue Daliresp Bloodwork/allergy testing Consider Dupixent F/U 6 months Orders: Orders Resp Allergy Profile Region I 02/05/24 J44.89 - Other specified chronic obstructive pulmonary disease, R91.1 - Solitary pulmonary nodule, T78.40XA - Allergy, unspecified, initial encounter Immunoglobulin E 02/05/24 J44.89 - Other specified chronic obstructive pulmonary disease, T78.40XA - Allergy, unspecified, initial encounter Complete Blood Count Auto Diff 02/05/24 J44.89 - Other specified chronic obstructive pulmonary disease, T78.40XA - Allergy, unspecified, initial encounter Erythrocyte Sedimentation Rate 02/05/24 J44.89 - Other specified chronic obstructive pulmonary disease, T78.40XA - Allergy, unspecified, initial encounter Medications: New doxycycline hyclate 100 mg PO BID 10 days 20 caps 0RF fluconazole (Diflucan) 100 mg PO DAILY 7 days 7 tabs 0RF doxycycline hyclate 100 mg PO BID 20 caps 0RF 10 days fluconazole (Diflucan) 100 mg PO DAILY 7 tabs 0RF 7 days Refilled prednisone PO daily; Take 2 tabs daily x 5 days, then 1 tablet daily x 5 days 15 tabs 0RF 10 days prednisone PO daily; Take 2 tabs daily x 5 days, then 1 tablet daily x 5 days 10 days 15 tabs 0RF Coding Level of Care Code Est Pt Level 4 (82503) Diagnoses Atelectasis J98.11 Simple chronic bronchitis J44.9 COPD type: unspecified COPD MCKAY (obstructive sleep apnea) G47.33 Pulmonary nodules R91.8 Chronic cough R05.3 Cough type: chronic Allergy, initial encounter T78.40XA Encounter type: initial encounter Asthma-COPD overlap syndrome J44.89 Time Spent (min) 17
[2024-02-05 10:01] VITALS: BP 118/68; PULSE 81; O2SAT 94; BMI 28.6
== END 2024-02-05 10:14 | disposition home or self-care (01) ==
PROVIDERS: PCP Internal Medicine Geriatric Medicine; Visit Provider Hospitalist
DX: J98.11 Atelectasis (principal); J44.9 Chronic obstructive pulmonary disease, unspecified; G47.33 Obstructive sleep apnea (adult) (pediatric); R91.8 Other nonspecific abnormal finding of lung field; R05.3 Chronic cough; T78.40XA Allergy, unspecified, initial encounter; J44.89 Other specified chronic obstructive pulmonary disease
CPT/HCPCS: 99214

== ENCOUNTER 2024-02-05 09:46 | Outpatient (REF) | payer OTHER, SELFPAY ==
[2024-02-05 12:04] LABS: Basophils Absolute Auto 0.1 X10*3/uL (0.0-0.2); Eosinophils Absolute Auto 0.3 X10*3/uL (0.0-0.4); Eosinophils Percent Auto 2.2 % (0-4); Hematocrit 49.6 % (37.0-47.0); Hemoglobin 16.3 g/dl (12.0-16.0); Imm Gran Abs Auto 0.12 X10*3/uL (0.00-0.03); Imm Gran Pct Auto 0.9 % (0.0-0.4); Lymphocytes Absolute Auto 3.5 X10*3/uL (1.2-4.9); MANUAL DIFF FLAG NO; Mean Corpuscular HGB Conc 32.9 g/dl (31.0-35.0); Mean Corpuscular Hemoglobin 29.6 pg (27.0-33.0); Mean Platelet Volume 10.8 fL (9.4-12.3); Monocytes Absolute Auto 0.8 X10*3/uL (0.1-1.2); Monocytes Percent Auto 5.7 % (2-11); Neutrophils Absolute Auto 8.6 x10*3/uL (2.0-8.3); Neutrophils Percent Auto 64.2 % (45-73); Platelet Count 266 X10*3/uL (160-400); Red Blood Count 5.51 X10*6/uL (4.20-5.50); Red Cell Distribution Width 13.3 % (11.0-16.0); White Blood Count 13.4 X10*3/uL (4.8-10.8)
[2024-02-05 12:42] LABS: Erythrocyte Sedimentation Rate 9 MM/HR (0-20)
[2024-02-08 21:08] LABS: Class Alternaria alternata 0; Class Aspergillus fumigatus 0/1; Class Bermuda Grass 0/1; Class Birch 0; Class Cat Dander 0; Class Cladosporium herbarum 0; Class Cockroach 0; Class Common Ragweed 1; Class Cottonwood 0; Class Derm. pterony 0/1; Class Dermatophagoides farinae 0; Class Dog Dander 2; Class Elm 0; Class Maple Box Elder 0; Class Mountain Cedar 0; Class Mouse Urine Protein 0; Class Mugwort 0; Class Oak 0; Class Penicillium crysogenum 0/1; Class Rough Pigweed 0; Class Sheep Sorrel 0; Class Sycamore 0; Class Timothy Grass 3; Class Walnut Tree 0; Class White Ash 0; Class White Mulberry 0; D001 IgE D pteronyssinus 0.14 kU/L; D002 - IgE D farinae <0.10 kU/L; E001 - IgE Cat Dander <0.10 kU/L; E005 - IgE Dog Dander 2.98 kU/L; E072-IgE Mouse Urine <0.10 kU/L; G002 IgE Bermuda Grass 0.16 kU/L; G006 - IgE Timothy Grass 3.66 kU/L; I006-IgE Cockroach, German <0.10 kU/L; Immunoglobulin E 728 kU/L (<OR=114); M001 IgE Penicillium chrysogen 0.18 kU/L; M002 - IgE Cladosporium herbar <0.10 kU/L; M006 - IgE Alternaria alternat <0.10 kU/L; T001 IgE Maple/Box Elder <0.10 kU/L; T003 IgE Common Silver Birch <0.10 kU/L; T006 - IgE Cedar, Mountain <0.10 kU/L; T007 - IgE Oak, White <0.10 kU/L; T008 IgE Elm, American <0.10 kU/L; T010 - IgE Walnut <0.10 kU/L; T011 - IgE Maple Leaf Sycamore <0.10 kU/L; T014 - IgE Cottonwood <0.10 kU/L; T015 - IgE Ash, White <0.10 kU/L; T070 - IgE White Mulberry <0.10 kU/L; W001 - IgE Ragweed, Short 0.44 kU/L; W006 - IgE Mugwort <0.10 kU/L; W014 IgE Pigweed, Common <0.10 kU/L; W018 IgE Sheep Sorrel <0.10 kU/L
== END 2024-02-05 09:47 | disposition home or self-care (01) ==
LOC: HO.LAB 09:46
PROVIDERS: PCP Internal Medicine Geriatric Medicine; Visit Provider Hospitalist
DX: T78.40XA Allergy, unspecified, initial encounter (principal); J44.89 Other specified chronic obstructive pulmonary disease; R91.1 Solitary pulmonary nodule
CPT/HCPCS: 36415; 82785; 85025; 85652; 86003; 99212

== ENCOUNTER 2024-02-10 10:56 | Outpatient (AMB) | payer OTHER, SELFPAY ==
--- NOTE | 2024-02-10 11:22 | MHC.OFFVIS ---
Intake Visit Reasons: follow up/US(set) Intake Note: Patient is present for Ultrasound follow up Urology Med: Tamsulosin, Vitamin B6 Antibiotic Allergy: Erythromycin Blood Thinner: Aspirin Dianetic Counselor Required: No Allergies HANK Inhibitors [HANK INHIBITORS] Allergy (Severe, Verified 02/10/24 11:30) ANGIO EDEMA enalapril Allergy (Severe, Verified 02/10/24 11:30) Anaphylaxis erythromycin base [ERYTHROMYCIN BASE] Allergy (Severe, Verified 02/10/24 11:30) HIVES ALL OVER metformin Allergy (Verified 02/10/24 11:30) Unknown hydromorphone [From DILAUDID] Adverse Reaction (Severe, Verified 02/10/24 11:30) TINGLING, PT DOES NOT LIKE THE FEELING MED GIVES HER HPI Comments Details: Alireza is a pleasant female. She is a patient of Dr. David. She is seen for the following urologic conditions - nephrolithiasis Six-month follow-up imaging Renal ultrasound 3 mm bilateral Add allopurinol to vitamin B6 Six-month follow-up imaging Has had some issues getting up at night with urination secondary to Jardiance. Talked about timing fluid intake and medication. Would like to see nurse-practitioner Nephrolithiasis Recurrent stone former Encourage vitamin B6 Imaging - 07/20 renal ultrasound discrepancy in size verification - 03/21 8 mm nonobstructing right lower pole renal calculus. Mild right renal pelvic collecting system fullness. No right hydroureter. - 02/20 renal ultrasound bilateral 3 mm stone Continue Imaging surveillance [facility] Medical History (Updated 02/07/24 @ 21:01 by Fidel White MD) Asthma-COPD overlap syndrome Allergies History of back pain History of neuropathy Smokes tobacco daily Opioid dependence Nephrolithiasis Hyperlipidemia HTN (hypertension) Cardiomyopathy Myocardial infarction CAD (coronary artery disease) Cough Hypothyroidism, postsurgical Tubular adenoma Diabetes MCKAY (obstructive sleep apnea) Irritable bowel syndrome Hyperthyroidism Polycythemia Smoker Hypoxia COPD exacerbation Lesion of bronchus Tracheal anomaly Multinodular goiter Vitamin D deficiency Atelectasis Subclinical hyperthyroidism Goiter Pneumonia Pulmonary nodules COPD (chronic obstructive pulmonary disease) Surgical History History of coronary artery stent placement Hx of thyroidectomy History of thyroid surgery History of esophagogastroduodenoscopy (EGD) Hx of colonoscopy History of back surgery History of ureterostomy S/P lumpectomy, right breast History of cholecystectomy History of tonsillectomy Family History Father No problems noted. Mother No problems noted. Paternal Aunt Diabetes Social History (Updated 02/05/24 @ 10:01 by Monae Granado LPN) Household Members: Spouse Housing: House Do you presently have visiting nurse or other home services: No Alcohol intake: never Comment: pt refused bed alarm/camera Patient Tobacco Use Status: Current everyday Tobacco user Tobacco use type: Cigarette Cigarette Packs Per Day: 0.5 Cigarettes Per Day: 10 e-Cigarette/Vaping Use: Never Used Second Hand Smoke Exposure: Yes Substance Use Type: Marijuana Advance Directives Date on File: 01/24/21 service: No Current occupational status: disabled Review of Systems Const Denies chills and Denies fever(s) Card Reports no additional complaints and Denies syncope Resp Denies cough GI Denies abdominal pain and Denies heartburn Reports as per HPI and Denies change in libido Neuro Denies syncope Psych Denies change in libido Endo Denies change in libido Physical Exam Const General: cooperative, healthy appearing, comfortable and no acute distress Orientation/consciousness: patient oriented x3 HEENT Face and sinus: Yes normal facial exam Mouth: moist mucous membranes Neck Neck: Yes normal visual inspection, Yes full ROM and Yes trachea midline Chest Chest palpation & inspection: normal inspection of the chest Resp Effort & Inspection: normal respiratory effort, able to speak in complete sentences and no respiratory distress GI Inspection: Yes normal to inspection Back/Spine/Pelvis Cervical Spine: normal cervical lordosis Thoracic/Lumbar Spine: thoracic and lumbar spine normal to inspection Skin General skin exam: no rashes or lesions noted Neuro General: patient oriented x3, gait normal, tone normal and moves all extremities Extrem General: Yes normal to inspection and Yes capillary refill normal Quality Reporting (2019) Adult (CMS 138//) Smoking risk assessment performed?: Yes Patient Tobacco Use Status: Current everyday Tobacco user Assessment & Plan Assessment & Plan (1) Bilateral nephrolithiasis: Code(s): N20.0 - Calculus of kidney Category: Medical Plan Six-month follow-up imaging Orders: Orders US renal BI 6 Months N20.0 - Calculus of kidney Medications: New allopurinol 100 mg PO DAILY 90 days 90 tabs 1RF N20.0 - Calculus of kidney Patient Instructions: Imaging studies, laboratory and physical exam results were discussed and reviewed in detail. No major barriers to patient understanding were identified. An opportunity to ask questions regarding the treatment plan was provided. All questions were answered. The patient expressed understanding and agreement with the above treatment plan. The patient is aware they should contact our office by phone for worsening of their current condition or the appearance of new urologic symptoms. Compliance is encouraged with any medications and followup testing that is ordered. It is a privilege to participate in the urologic care of your patient. If you have any questions or concerns regarding treatment for the above conditions, or other urologic issues, please do not hesitate to contact me. The office telephone contact is [phone]. This note is constructed using voice recognition software. While every effort has been made to ensure accuracy customer retention representative errors may have been included. Yours sincerely, Dr Blayne Srinivasan MD, [facility] - Urology Providers of Expert, Compassionate Care for the Genitourinary System Coding Level of Care Code Est Pt Level 3 (39392) Diagnoses Bilateral nephrolithiasis N20.0
== END 2024-02-10 11:55 | disposition home or self-care (01) ==
PROVIDERS: PCP Internal Medicine Geriatric Medicine; Visit Provider Urology
DX: N20.0 Calculus of kidney (principal)
CPT/HCPCS: 99213

== ENCOUNTER → 2024-02-10 10:56 | Outpatient (BNVA) | payer OTHER, SELFPAY | PROVIDERS: PCP Internal Medicine Geriatric Medicine; Visit Provider Urology | DX: N20.0 Calculus of kidney (principal) | CPT/HCPCS: 99212 ==

== ENCOUNTER 2024-03-03 10:26 | Outpatient (AMB) | payer OTHER, SELFPAY ==
[2024-03-03 14:17] VITALS: BP 122/62; PULSE 83; O2SAT 95
--- NOTE | 2024-03-03 14:17 | MHC.OFFVIS ---
Vital Signs 03/03/24 14:17 Weight 171 lb 15.369 oz BP 122/62 Blood Pressure Location Lt brachial Position Sitting Pulse 83 Pulse Source Pulse Oximeter Pulse Oximetry (%) 95 Oxygen Delivery Method Room Air Intake Visit Reasons: dupixent teaching Allergies HANK Inhibitors [HANK INHIBITORS] Allergy (Severe, Verified 03/03/24 14:17) ANGIO EDEMA enalapril Allergy (Severe, Verified 03/03/24 14:17) Anaphylaxis erythromycin base [ERYTHROMYCIN BASE] Allergy (Severe, Verified 03/03/24 14:17) HIVES ALL OVER metformin Allergy (Verified 03/03/24 14:17) Unknown hydromorphone [From DILAUDID] Adverse Reaction (Severe, Verified 03/03/24 14:17) TINGLING, PT DOES NOT LIKE THE FEELING MED GIVES HER Medication List - Last Reconciled 03/03/24 by Soila Ramirez LPN allopurinol 100 mg PO DAILY 90 days arm brace (HANK Elbow Brace) As directed aspirin 81 mg PO BEDTIME atorvastatin 80 mg See Protocol PO BEDTIME blood sugar diagnostic (FreeStyle Lite Strips) As directed calcium citrate-vitamin D3 315 mg-6.25 mcg (250 unit) 2 tabs PO QID carvedilol 6.25 mg PO BID celecoxib (Celebrex) 200 mg PO BID PRN cetirizine 10 mg PO DAILY cholecalciferol (vitamin D3) (Vitamin D3) 50 mcg PO DAILY docusate sodium 1 cap PO BID doxycycline hyclate 100 mg PO BID doxycycline hyclate 100 mg PO BID 10 days doxycycline hyclate 100 mg PO BID 10 days dulaglutide (Trulicity) 1.5 mg subcut REESE@0900 dupilumab (Dupixent) loading dose: 600mg SC x 1, then 300mg SC every 2 weeks 4 weeks empagliflozin (Jardiance) 10 mg PO DAILY fluconazole (Diflucan) 100 mg PO DAILY 7 days fluticasone propionate 50 mcg/actuation 1 spray intranasal DAILY PRN lpiiwienmzw-ylrtpsmbq-lobcefzk 100-62.5-25 mcg (Trelegy Ellipta) 1 ea inhalation DAILY insulin glargine (Lantus Solostar U-100 Insulin) 30 units (0.3 mL) subcut BID insulin lispro (Humalog KwikPen (U-100) Insulin) 1 sliding scale dose See Protocol subcut TIDAC ipratropium-albuterol 0.5 mg-3 mg(2.5 mg base)/3 mL 3 mL inhalation QID PRN ipratropium-albuterol 20-100 mcg/actuation (Combivent Respimat) 2 puffs inhalation BID lancets (TRUEplus Lancets) As directed levothyroxine 112 mcg PO DAILY lidocaine 5% leave on most painful area for up to 12 hrs topically daily; methocarbamol 1,000 mg (2 x 500 mg) PO BID-TID PRN methocarbamol 750 mg PO TID montelukast 10 mg PO BEDTIME naloxone 4 mg/actuation 1 spray intranasal ONCE PRN nebulizers As directed nicotine 1 patch transdermal DAILY 28 days omeprazole 20 mg PO BID@0630,1630 oxycodone-acetaminophen 7.5-325 mg 1 tab PO Q6H phenazopyridine (Pyridium) 100 mg PO TID PRN 4 days prednisone 40 mg (2 x 20 mg) PO DAILY prednisone 5 mg PO DAILY prednisone PO daily; Take 2 tabs daily x 5 days, then 1 tablet daily x 5 days 10 days pregabalin 75 mg PO BID 30 days pyridoxine (vitamin B6) 50 mg PO DAILY 90 days roflumilast 500 mcg PO DAILY sennosides (senna) 17.2 mg PO BEDTIME PRN tamsulosin 0.4 mg PO BEDTIME 14 days Ventolin HFA 90 mcg/actuation (albuterol sulfate) 2 puffs inhalation Q4-6H PRN NS HPI HPI dupixent teaching: Details: Marita is here for a Dupixent teach she was educated on hand washing, injection preparation, administration, and disposal.? Marita was able to return demonstrate proper technique for hand washing, injection preparation, administration and disposal of needle and states she has no questions at this time. Medication Dupixent 300mg/2mL pre-filled pen injector (patient?s own meds) first dose of 300mg given by the patient SQ to her R abdomen lot# [id number] expires 09/26/2025. She is aware her next injection is in 14 days. Nurse visit only.? REPLACED BY [facility] Medical History (Updated 02/07/24 @ 21:01 by Fidel White MD) Asthma-COPD overlap syndrome Allergies History of back pain History of neuropathy Smokes tobacco daily Opioid dependence Nephrolithiasis Hyperlipidemia HTN (hypertension) Cardiomyopathy Myocardial infarction CAD (coronary artery disease) Cough Hypothyroidism, postsurgical Tubular adenoma Diabetes MCKAY (obstructive sleep apnea) Irritable bowel syndrome Hyperthyroidism Polycythemia Smoker Hypoxia COPD exacerbation Lesion of bronchus Tracheal anomaly Multinodular goiter Vitamin D deficiency Atelectasis Subclinical hyperthyroidism Goiter Pneumonia Pulmonary nodules COPD (chronic obstructive pulmonary disease) Surgical History History of coronary artery stent placement Hx of thyroidectomy History of thyroid surgery History of esophagogastroduodenoscopy (EGD) Hx of colonoscopy History of back surgery History of ureterostomy S/P lumpectomy, right breast History of cholecystectomy History of tonsillectomy Family History Father No problems noted. Mother No problems noted. Paternal Aunt Diabetes Social History (Updated 02/05/24 @ 10:01 by Monae Granado LPN) Household Members: Spouse Housing: House Do you presently have visiting nurse or other home services: No Alcohol intake: never Comment: pt refused bed alarm/camera Patient Tobacco Use Status: Current everyday Tobacco user Tobacco use type: Cigarette Cigarette Packs Per Day: 0.5 Cigarettes Per Day: 10 e-Cigarette/Vaping Use: Never Used Second Hand Smoke Exposure: Yes Substance Use Type: Marijuana Advance Directives Date on File: 01/24/21 service: No Current occupational status: disabled Physical Exam Vital Signs: Last Vital Signs Pulse 83 03/03/24 14:17 BP 122/62 03/03/24 14:17 Pulse Ox 95 03/03/24 14:17 Oxygen Delivery Method Room Air 03/03/24 14:17 Quality Reporting (2019) Adult ([facility] 138/05/21/68) Smoking risk assessment performed?: Yes Patient Tobacco Use Status: Current everyday Tobacco user Assessment & Plan Assessment & Plan (1) COPD (chronic obstructive pulmonary disease): Code(s): J44.9 - Chronic obstructive pulmonary disease, unspecified Category: Medical Qualifiers: COPD type: unspecified COPD Qualified Code(s): J44.9 - Chronic obstructive pulmonary disease, unspecified Plan Dupixent Coding Level of Care Code Established Pt Est Pt Level 1 (21811) Patient Type Established Diagnoses Simple chronic bronchitis J44.9 COPD type: unspecified COPD Comment NURSE VISIT ONLY
== END 2024-03-03 11:40 | disposition home or self-care (01) ==
PROVIDERS: PCP Internal Medicine Geriatric Medicine; Visit Provider Hospitalist
DX: J44.9 Chronic obstructive pulmonary disease, unspecified (principal)

== ENCOUNTER → 2024-03-03 10:26 | Outpatient (BNVA) | payer OTHER, SELFPAY | PROVIDERS: PCP Internal Medicine Geriatric Medicine; Visit Provider Hospitalist | DX: J44.9 Chronic obstructive pulmonary disease, unspecified (principal); E89.0 Postprocedural hypothyroidism; F17.210 Nicotine dependence, cigarettes, uncomplicated; Z79.899 Other long term (current) drug therapy | CPT/HCPCS: 99211; 99212 ==

== ENCOUNTER 2024-03-03 10:57 | Outpatient (AMB) | payer OTHER, SELFPAY ==
[2024-03-03 11:07] VITALS: BP 118/66; PULSE 85; BMI 28.6
--- NOTE | 2024-03-03 11:07 | A.OFFVIS_ITS ---
Vital Signs 03/03/24 11:07 Height 5 ft 5 in Weight 171 lb 15.369 oz BMI 28.6 BP 118/66 Blood Pressure Location Rt brachial Position Sitting Pulse 85 Pulse Source Pulse Oximeter Intake Visit Reasons: f/u post surgical hypothyroidism-confirmed Intake Note: Patient present today for Post-operative hypothyroidism follow up visit. Mold Swabber Required: No Accompanied by: Self / Same As Patient Allergies HANK Inhibitors [HANK INHIBITORS] Allergy (Severe, Verified 02/10/24 11:30) ANGIO EDEMA enalapril Allergy (Severe, Verified 02/10/24 11:30) Anaphylaxis erythromycin base [ERYTHROMYCIN BASE] Allergy (Severe, Verified 02/10/24 11:30) HIVES ALL OVER metformin Allergy (Verified 02/10/24 11:30) Unknown hydromorphone [From DILAUDID] Adverse Reaction (Severe, Verified 02/10/24 11:30) TINGLING, PT DOES NOT LIKE THE FEELING MED GIVES HER Medication List - Last Reconciled 03/03/24 by Brooks Goldberg MD allopurinol 100 mg PO DAILY 90 days arm brace (HANK Elbow Brace) As directed aspirin 81 mg PO BEDTIME atorvastatin 80 mg See Protocol PO BEDTIME blood sugar diagnostic (FreeStyle Lite Strips) As directed calcium citrate-vitamin D3 315 mg-6.25 mcg (250 unit) 2 tabs PO QID carvedilol 6.25 mg PO BID celecoxib (Celebrex) 200 mg PO BID PRN cetirizine 10 mg PO DAILY cholecalciferol (vitamin D3) (Vitamin D3) 50 mcg PO DAILY docusate sodium 1 cap PO BID doxycycline hyclate 100 mg PO BID doxycycline hyclate 100 mg PO BID 10 days doxycycline hyclate 100 mg PO BID 10 days dulaglutide (Trulicity) 1.5 mg subcut REESE@0900 dupilumab (Dupixent) loading dose: 600mg SC x 1, then 300mg SC every 2 weeks 4 weeks empagliflozin (Jardiance) 10 mg PO DAILY fluconazole (Diflucan) 100 mg PO DAILY 7 days fluticasone propionate 50 mcg/actuation 1 spray intranasal DAILY PRN lyybudogvja-xhmqlqyks-rwoddjil 100-62.5-25 mcg (Trelegy Ellipta) 1 ea inhalation DAILY insulin glargine (Lantus Solostar U-100 Insulin) 30 units (0.3 mL) subcut BID insulin lispro (Humalog KwikPen (U-100) Insulin) 1 sliding scale dose See Protocol subcut TIDAC ipratropium-albuterol 0.5 mg-3 mg(2.5 mg base)/3 mL 3 mL inhalation QID PRN ipratropium-albuterol 20-100 mcg/actuation (Combivent Respimat) 2 puffs inhalation BID lancets (TRUEplus Lancets) As directed levothyroxine 112 mcg PO DAILY lidocaine 5% leave on most painful area for up to 12 hrs topically daily; methocarbamol 1,000 mg (2 x 500 mg) PO BID-TID PRN methocarbamol 750 mg PO TID montelukast 10 mg PO BEDTIME naloxone 4 mg/actuation 1 spray intranasal ONCE PRN nebulizers As directed nicotine 1 patch transdermal DAILY 28 days omeprazole 20 mg PO BID@0630,1630 oxycodone-acetaminophen 7.5-325 mg 1 tab PO Q6H phenazopyridine (Pyridium) 100 mg PO TID PRN 4 days prednisone 40 mg (2 x 20 mg) PO DAILY prednisone 5 mg PO DAILY prednisone PO daily; Take 2 tabs daily x 5 days, then 1 tablet daily x 5 days 10 days pregabalin 75 mg PO BID 30 days pyridoxine (vitamin B6) 50 mg PO DAILY 90 days roflumilast 500 mcg PO DAILY sennosides (senna) 17.2 mg PO BEDTIME PRN tamsulosin 0.4 mg PO BEDTIME 14 days Ventolin HFA 90 mcg/actuation (albuterol sulfate) 2 puffs inhalation Q4-6H PRN NS HPI Comments Details: 63 YO Female with a PMHx of a toxic MNG who is seen in F/U for the same. Per Dr. Carmen's records she had a prior thyroid uptake and scan which revealed uptake WNL, but with a heterogenous pattern consistent with toxic nodules. She had subclinical hyperthyroidism and was started on Methimazole 5 mg PO daily. She was however on Prednisone at that time. She was able to be weaned off the prednisone and the methimazole was stopped. Her TFTs initially normalized, but then she became hyperthyroid again. Labs at that time revealed all antibodies to be negative. Thyroid uptake and scan completed 12/27/2021 revealed 24 hour uptake of 38.9%. The gland was diffusely enlarged with multiple areas of decreased uptake in the bilateral lower poles and increased uptake within the bilateral upper poles. Trapping was moderately increased diffusely. This was thought to represent a toxic MNG. US did confirm a multinodular thyroid. She was scheduled for FNA biopsy of the col d appearing areas, but this was rescheduled on mulitple occasions and she still has yet to complete this. She has COPD and remains on Prednisone daily. She overall has no complaints today. Thyroid US: 12/27/2020 Right Thyroid Lobe: 5.6 x 3.1 x 3.6 cm, volume 32.7 mL. Previously 5.2 x 2.4 x 3.4 cm, volume 23.0 mL. Parenchyma: The gland echotexture is heterogeneous. Thyroid vascularity is normal. Left Thyroid Lobe: 6.5 x 3.0 x 3.4 cm, volume 34.7 mL. Previously 5.7 x 1.9 x 2.8 cm, volume 15.9 mL. Parenchyma: The gland echotexture is heterogeneous. Thyroid vascularity is normal. Isthmus: 0.6 cm in maximum AP dimension. Previously 0.5 cm. Estimated total number of nodules greater than or equal to 1 cm: 1. Plug Saw Operator nodules are described as follows: 1.? Location: Left mid. ?? ? Size: 0.8 x 0.6 x 0.5 cm, volume 0.12 mL. ?? ? Previously: 0.7 x 0.6 x 0.8 cm, volume 0.18 mL. ?? ? Nodule characteristics: ?? ? Composition: Solid/almost completely solid (2). ?? ? Echogenicity: Hypoechoic (2). ?? ? Shape: Not taller than wide (0). ?? ? Margins: Smooth (0). ?? ? Echogenic Foci: None (0). ? ACR TI-RADS total points: 4 ?? ? ACR TI-RADS category: 4 ? Significant change in size (>/= 20% in 2 dimensions and minimal increase of 2 mm or 50% or greater increase in volume): ?? ? Change in features: ?? ? Change in ACR TI-RADS risk category: 2.? Location: Left superior. ?? ? Size: 0.6 x 0.7 x 0.3 cm, volume 0.07 mL. ?? ? Previously: 0.6 x 0.4 x 0.6 cm, volume 0.08 mL. ?? ? Nodule characteristics: ?? ? Composition: Solid (2). ?? ? Echogenicity: Hypoechoic (2). ?? ? Shape: Not taller than wide (0). ?? ? Margins: Smooth (0). ?? ? Echogenic Foci: None (0). ? ACR TI-RADS total points: 4 ?? ? ACR TI-RADS category: 4 ?? ? Significant change in size (>/= 20% in 2 dimensions and minimal increase of 2 mm or 50% or greater increase in volume): ?? ? Change in features: ?? ? Change in ACR TI-RADS risk category: 3.? Location: Right inferior. ?? ? Size: 1.8 x 1.8 x 1.7 cm, volume 2.88 mL. ?? ? Previously: Not seen on the prior study. Appreciable nodule versus area of gland heterogeneity. ?? ? Nodule characteristics: ?? ? Composition: Solid (2). ?? ? Echogenicity: Hypoechoic (2). ?? ? Shape: Not taller than wide (0). ?? ? Margins: Smooth (0). ?? ? Echogenic Foci: None (0). ? ACR TI-RADS total points: 4 ?? ? ACR TI-RADS category: 4 ?? ? Significant change in size (>/= 20% in 2 dimensions and minimal increase of 2 mm or 50% or greater increase in volume): ?? ? Change in features: ?? ? Change in ACR TI-RADS risk category: 4.? Location: Right mid. ?? ? Size: 0.6 x 0.4 x 0.3 cm, volume 0.04 mL. ?? ? Previously: 0.6 x 0.5 x 0.6 cm, volume 0.09 mL. ?? ? Nodule characteristics: ?? ? Composition: Solid (2). ?? ? Echogenicity: Hypoechoic (2). ?? ? Shape: Not taller than wide (0). ?? ? Margins: Smooth (0). ?? ? Echogenic Foci: None (0). ? ACR TI-RADS total points: 4 ?? ? ACR TI-RADS category: 4 ?? ? Significant change in size (>/= 20% in 2 dimensions and minimal increase of 2 mm or 50% or greater increase in volume): ?? ? Change in features: ?? ? Change in ACR TI-RADS risk category: NODES: No lymphadenopathy is seen in the tissue surrounding the thyroid gland. Thyroid Uptake and Scan: 12/27/2021 FINDINGS: The uptake is 16.2% at 4 hours and 38.9% at 24 hours (Normal radioiodine uptake at 24 hours is 10% to 30%). The radioiodine uptake is mildly elevated. The radiopertechnetate thyroid scintigram demonstrates the thyroid gland to be moderately enlarged, proximal 3-4 times normal in size. There is some heterogeneity within the gland with a suggestion of ovoid shaped foci of decreased activity in both lower poles and a small subcentimeter focus of relatively increased activity in the upper pole of the right lobe. The overall trapping function is moderately increased diffusely. A single anterior radioiodine image obtained at the time of the 24-hour uptake is similar to the radio pertechnetate image except the small subcentimeter focus of relatively increased activity in the upper pole of the right lobe is not present. Labs: Laboratory Tests 06/18/22 06/18/22 10:28 10:28 25-OH Vitamin D Total 32.7 TSH 0.19 L Free T4 1.44 Total T3 143 Status post total thyroidectomy on 12/31/2022 with benign pathology. Patient is currently on levothyroxine 112 mcg [facility] Medical History (Updated 02/07/24 @ 21:01 by Fidel White MD) Asthma-COPD overlap syndrome Allergies History of back pain History of neuropathy Smokes tobacco daily Opioid dependence Nephrolithiasis Hyperlipidemia HTN (hypertension) Cardiomyopathy Myocardial infarction CAD (coronary artery disease) Cough Hypothyroidism, postsurgical Tubular adenoma Diabetes MCKAY (obstructive sleep apnea) Irritable bowel syndrome Hyperthyroidism Polycythemia Smoker Hypoxia COPD exacerbation Lesion of bronchus Tracheal anomaly Multinodular goiter Vitamin D deficiency Atelectasis Subclinical hyperthyroidism Goiter Pneumonia Pulmonary nodules COPD (chronic obstructive pulmonary disease) Surgical History History of coronary artery stent placement Hx of thyroidectomy History of thyroid surgery History of esophagogastroduodenoscopy (EGD) Hx of colonoscopy History of back surgery History of ureterostomy S/P lumpectomy, right breast History of cholecystectomy History of tonsillectomy Family History Father No problems noted. Mother No problems noted. Paternal Aunt Diabetes Social History (Updated 02/05/24 @ 10:01 by Monae Granado LPN) Household Members: Spouse Housing: House Do you presently have visiting nurse or other home services: No Alcohol intake: never Comment: pt refused bed alarm/camera Patient Tobacco Use Status: Current everyday Tobacco user Tobacco use type: Cigarette Cigarette Packs Per Day: 0.5 Cigarettes Per Day: 10 e-Cigarette/Vaping Use: Never Used Second Hand Smoke Exposure: Yes Substance Use Type: Marijuana Advance Directives Date on File: 01/24/21 service: No Current occupational status: disabled Physical Exam Vital Signs: BMI result Body Mass Index 28.6 Const Other: Healed scar status post thyroidectomy Quality Reporting (2019) Adult ([facility] 138/05/21/68) Smoking risk assessment performed?: Yes Patient Tobacco Use Status: Current ever yday Tobacco user Assessment & Plan Assessment & Plan (1) Hypothyroidism, postsurgical: Code(s): E89.0 - Postprocedural hypothyroidism Category: Medical Plan: This 62-year-old white female with a history of multinodular goiter toxic status post total thyroidectomy with benign pathology. She is currently be replaced with 112 mcg levothyroxine. She appears to be clinically and biochemically euthyroid had an elevated TSH on 06/19/2023 Plan is continue the current therapy. At this point, patient returned to the care of her primary care provider returned back to endocrinology as needed Coding Level of Care Code Tele New Pt Level 3 (26421) Diagnoses Hypothyroidism, postsurgical E89.0
== END 2024-03-03 11:20 | disposition home or self-care (01) ==
PROVIDERS: PCP Internal Medicine Geriatric Medicine; Visit Provider Internal Medicine Endocrinology, Diabetes & Metabolism
DX: E89.0 Postprocedural hypothyroidism (principal)
CPT/HCPCS: 99213

== ENCOUNTER 2024-04-04 10:04 | Outpatient (REF) | payer OTHER, SELFPAY ==
--- NOTE | ~2024-04-04 | XR_ITS ---
EXAMINATION: XR CHEST CLINICAL INFORMATION: right sided pain with breathing, fractured ribs? copd COMPARISON: Chest 12/24/2023 TECHNIQUE: 2 views of the chest were obtained. FINDINGS: No significant abnormality is noted involving the heart, lungs, mediastinum, bony thorax or soft tissues. XR/XR chest 2V IMPRESSION: Unremarkable chest examination. Electronically signed by: Roe Vega MD 04/04/2024 10:34 [facility]
== END 2024-04-04 10:05 | disposition home or self-care (01) ==
LOC: HO.HHCX 10:04
PROVIDERS: Visit Provider Nurse Practitioner Family
DX: M25.511 Pain in right shoulder (principal); R07.89 Other chest pain
CPT/HCPCS: 71046

== ENCOUNTER → 2024-04-04 10:06 | Outpatient (BNV) | payer OTHER, SELFPAY | PROVIDERS: Visit Provider Radiology Diagnostic Radiology | DX: R07.1 Chest pain on breathing (principal) | CPT/HCPCS: 71046 ==

== ENCOUNTER 2024-04-07 08:26 | Inpatient (IN) | payer OTHER, SELFPAY ==
[2024-04-07] VITALS (13 sets, daily range): BP systolic 117–138; BP diastolic 60–68; PULSE 76–93; RESP 16–28; TEMP 36.3–37.1; O2SAT 84–93; BMI 28.0; BMI 29.3
--- NOTE | ~2024-04-07 | XR_ITS ---
EXAMINATION: XR CHEST CLINICAL INFORMATION: shortness of breath, right sided pain COMPARISON: None available. TECHNIQUE: Frontal view of the chest was obtained. FINDINGS: No significant abnormality is noted involving the heart, lungs, mediastinum, bony thorax or soft tissues. XR/XR chest 1V IMPRESSION: Unremarkable chest examination. Electronically signed by: Roe Vega MD 04/07/2024 09:56 AM [facility] [place]
--- NOTE | 2024-04-07 09:21 | ED_ITS ---
HPI - General Adult General Chief complaint: Dyspnea Stated complaint: diff breathing Time Seen by Provider: 04/07/24 09:20 History of Present Illness ED Provider: Jayme BESS narrative: The patient is a 63-year-old woman with a history of COPD who says she has been having problems with shortness of breath for about a week. Three days ago on Thursday she went to her PCP's office and was prescribed cleaned. Feels that these medications were not helpful at all and her symptoms have gotten worse. She has continued to have a and shortness of breath. This morning her oxygen saturation by a home monitor was low and so she came to the emergency room. She does not think she has had a fever. No pain or swelling in her legs. Related Data Home Medications ?Medication ?Instructions ?Recorded ?Confirmed aspirin 81 mg tablet,delayed 81 mg PO BEDTIME 12/24/19 03/03/24 release atorvastatin 80 mg tablet 80 mg PO BEDTIME 12/24/19 03/03/24 carvedilol 6.25 mg tablet 6.25 mg PO BID 12/24/19 03/03/24 cetirizine 10 mg tablet 10 mg PO DAILY 12/24/19 03/03/24 montelukast 10 mg tablet 10 mg PO BEDTIME 12/24/19 03/03/24 omeprazole 20 mg capsule,delayed 20 mg PO BID@0630,1630 12/24/19 03/03/24 release ipratropium 20 mcg-albuterol 100 2 puff inhalation BID 01/02/20 03/03/24 mcg/actuation mist for inhalation (Combivent Respimat) docusate sodium 100 mg capsule 1 cap PO BID Constipation 01/24/21 03/03/24 blood sugar diagnostic (FreeStyle #10 ea 10/07/21 03/03/24 Lite Strips) lancets 33 gauge (TRUEplus Lancets) #100 ea 10/07/21 03/03/24 naloxone 4 mg/actuation nasal spray 1 spray intranasal ONCE PRN Opioid 10/07/21 03/03/24 Overdose oxycodone-acetaminophen 7.5 mg-325 1 tab PO Q6H severe pain 06/23/22 03/03/24 mg tablet fluticasone propionate 50 1 spray intranasal DAILY PRN 07/25/22 03/03/24 mcg/actuation nasal Congestion spray,suspension dulaglutide 1.5 mg/0.5 mL 1.5 mg subcut REESE@0900 08/06/22 03/03/24 subcutaneous pen injector (Trulicity) calcium 315 mg (as 2 tab PO QID 01/30/23 03/03/24 citrate)-vitamin D3 6.25 mcg (250 unit) tablet ipratropium 0.5 mg-albuterol 3 mg 3 ml inhalation QID PRN Shortness 01/30/23 03/03/24 (2.5 mg base)/3 mL nebulization Of Breath Or Wheezing soln sennosides 8.6 mg tablet (senna) 17.2 mg PO BEDTIME PRN Constipation 01/30/23 03/03/24 nebulizers 06/03/23 03/03/24 empagliflozin 10 mg tablet 10 mg PO DAILY 02/10/24 03/03/24 (Jardiance) methocarbamol 750 mg tablet 750 mg PO TID 03/03/24 03/03/24 insulin aspart U-100 100 unit/mL 6 - 10 unit subcut DIRECTED 04/07/24 (3 mL) subcutaneous pen (Novolog FlexPen U-100 Insulin aspart) Previous Rx's ?Medication ?Instructions ?Recorded insulin glargine 100 unit/mL (3 30 unit (0.3 mL) subcut BID #15 mL 02/12/22 mL) subcutaneous pen (Lantus Solostar U-100 Insulin) cholecalciferol (vitamin D3) 50 50 mcg PO DAILY #90 caps 05/21/23 mcg (2,000 unit) capsule (Vitamin D3) phenazopyridine 100 mg tablet 100 mg PO TID PRN Spasm 4 days #12 06/17/23 (Pyridium) tabs tamsulosin 0.4 mg capsule 0.4 mg PO BEDTIME 14 days #14 caps 06/17/23 celecoxib 200 mg capsule (Celebrex) 200 mg PO BID PRN pain #60 caps 07/24/23 lidocaine 5 % topical patch See Rx Instructions topical DAILY 07/24/23 pain #30 ea Ventolin HFA 90 mcg/actuation 2 puff inhalation Q4-6H PRN for 07/27/23 aerosol inhaler (albuterol sulfate) wheezing #18 grams arm brace (HNAK Elbow Brace) #1 ea 08/27/23 pyridoxine (vitamin B6) 50 mg 50 mg PO DAILY 90 days #90 tabs 10/12/23 tablet roflumilast 500 mcg tablet 500 mcg PO DAILY #30 tabs 10/22/23 nicotine 21 mg/24 hr daily 1 patch transdermal DAILY 28 days 10/28/23 transdermal patch #28 ea methocarbamol 500 mg tablet 1,000 mg (2 x 500 mg) PO BID-TID 11/09/23 PRN for muscle spasm #120 tabs doxycycline hyclate 100 mg capsule 100 mg PO BID #10 caps 12/24/23 pregabalin 75 mg capsule 75 mg PO BID pain 30 days #60 caps 01/01/24 fluconazole 100 mg tablet 100 mg PO DAILY 7 days #7 tabs 02/05/24 (Diflucan) prednisone 20 mg tablet See Rx Instructions PO DAILY 10 02/05/24 days #15 tabs allopurinol 100 mg tablet 100 mg PO DAILY 90 days #90 tabs 02/10/24 dupilumab 300 mg/2 mL subcutaneous See Rx Instructions subcut Q2W 4 02/15/24 pen injector (Dupixent) weeks #4 mL prednisone 5 mg tablet 5 mg PO DAILY #30 tabs 03/07/24 fluticasone fur. 100 mcg-umeclid 1 ea inhalation DAILY #1 ea 03/09/24 62.5 mcg-vilant 25 mcg inhalat.powder (Trelegy Ellipta) levothyroxine 112 mcg tablet 112 mcg PO DAILY #30 tabs 04/07/24 Allergies Allergy/AdvReac Type Severity Reaction Status Date / Time HANK Inhibitors Allergy Severe ANGIO Verified 04/07/24 08:46 [HANK INHIBITORS] EDEMA enalapril Allergy Severe Anaphylaxis Verified 04/07/24 08:46 erythromycin base Allergy Severe HIVES ALL Verified 04/07/24 08:46 [ERYTHROMYCIN BASE] OVER metformin Allergy Unknown Verified 04/07/24 08:46 hydromorphone [From DILAUDID] AdvReac Severe TINGLING, Verified 04/07/24 08:46 PT DOES NOT LIKE THE FEELING MED GIVES HER Review of Systems 2 Review of Systems: Yes all other systems are reviewed and are negative PMFSH Past Medical History Medical History Asthma-COPD overlap syndrome Allergies History of back pain History of neuropathy Smokes tobacco daily Opioid dependence Nephrolithiasis Hyperlipidemia HTN (hypertension) Cardiomyopathy Myocardial infarction CAD (coronary artery disease) Cough Hypothyroidism, postsurgical Tubular adenoma Diabetes MCKAY (obstructive sleep apnea) Irritable bowel syndrome Hyperthyroidism Polycythemia Smoker Hypoxia COPD exacerbation Lesion of bronchus Tracheal anomaly Multinodular goiter Vitamin D deficiency Atelectasis Subclinical hyperthyroidism Goiter Pneumonia Pulmonary nodules COPD (chronic obstructive pulmonary disease) Surgical History History of coronary artery stent placement Hx of thyroidectomy History of thyroid surgery History of esophagogastroduodenoscopy (EGD) Hx of colonoscopy History of back surgery History of ureterostomy S/P lumpectomy, right breast History of cholecystectomy History of tonsillectomy Family History Family History Father No problems noted. Mother No problems noted. Paternal Aunt Diabetes Social History Social History Household Members: Spouse Housing: House Do you presently have visiting nurse or other home services: No Alcohol intake: never Comment: pt refused bed alarm/camera Patient Tobacco Use Status: Current everyday Tobacco user Tobacco use type: Cigarette Cigarette Packs Per Day: 0.5 Cigarettes Per Day: 10 Smoked in Last 30 Days: Yes e-Cigarette/Vaping Use: Never Used Second Hand Smoke Exposure: Yes Use of substances other than those prescribed or required for medical reasons: No Substance Use Type: Marijuana Advance Directives: Yes Advance Directives on File: Yes Advance Directives Date on File: 01/24/21 Do you have a plan to hurt others: No Plan Patient : No service: No Current occupational status: disabled Physical Exam ED Vital Signs: Vital Signs - 24 hr 04/07/24 08:39 04/07/24 08:45 04/07/24 08:56 Temperature 98.0 F 98.0 F Pulse Rate 85 88 Respiratory Rate 28 H 20 Blood Pressure 121/63 117/60 Pulse Oximetry 84 L 93 Oxygen Delivery Method Room Air Nasal Cannula Oxygen Flow Rate 2 04/07/24 09:08 04/07/24 10:04 04/07/24 13:09 Temperature Pulse Rate 86 76 Respiratory Rate 19 23 H Blood Pressure Pulse Oximetry 91 L Oxygen Delivery Method Nasal Cannula Oxygen Flow Rate 2 04/07/24 14:00 01/09/25 14:05 Temperature 98.4 F Pulse Rate 87 Respiratory Rate 16 Blood Pressure 129/68 Pulse Oximetry 90 L 91 L Oxygen Delivery Method Room Air Nasal Cannula Oxygen Flow Rate BMI result Body Mass Index 28.0 Const Other: The patient is a 63-year-old woman who was awake and alert. She looks to be somewhat chronically ill. She looks mildly acutely ill. HENMT Other: Face is symmetrical. Airway clear. Mucous membranes moist Eyes General: appearance normal, both eyes and all related structures Neck Neck: Yes full ROM and Yes no JVD Chest Other: Mild increased work of breathing apparent Resp Other: Mild increased work of breathing apparent, inspiratory and expiratory wheezes bilaterally Cardio Rate: regular rate Rhythm: regular rhythm Heart sounds: S1 normal heart sound present and S2 normal heart sound present GI Other: Abdomen is soft and nontender Skin Other: The skin is dry and unremarkable Neuro Other: The patient is awake and alert with a normal mental status. Cranial nerves are grossly intact. She moves her extremities symmetrically. Extrem Other: No calf swelling or asymmetry or tenderness. Medications Administered Generic Name Dose Route Start Last Admin Trade Name Freq PRN Reason Stop Dose Admin Albuterol/Ipratropium 3 ml 04/07/24 16:00 04/07/24 15:33 Albuterol/Iprat 2.5/0.5mg 3 Ml Ampul.Neb INHALE 3 ml RQ4H WHILE AWAKE SOM Administration Enoxaparin Sodium 40 mg 04/07/24 15:00 04/07/24 15:59 Enoxaparin Sodium 40 Mg/0.4 Ml Syringe SUBCUT 40 mg Q24H SOM Administration Sodium Chloride 3 ml 04/07/24 16:00 04/07/24 15:59 0.9 % Sodium Chloride Flush 3 Ml Syringe IVFLUSH 3 ml QSHIFT SOM Administration Discontinued Medications Generic Name Dose Route Start Last Admin Trade Name Freq PRN Reason Stop Dose Admin Albuterol/Ipratropium 3 ml 04/07/24 12:47 04/07/24 13:10 Albuterol/Iprat 2.5/0.5mg 3 Ml Ampul.Neb INHALE 04/07/24 12:48 Not Given ONCE ONE Albuterol Sulfate 2.5 mg/ 0 mg 04/07/24 09:49 04/07/24 10:07 Albuterol/Ipratropium 3 ml INHALE 04/07/24 09:50 5 dose ONCE ONE Administration Albuterol Sulfate 2.5 mg/ 0 mg 04/07/24 13:09 04/07/24 13:15 Albuterol/Ipratropium 3 ml INHALE 04/07/24 13:10 5 dose ONCE ONE Administration Methylprednisolone Sodium Succinate 80 mg 04/07/24 09:50 04/07/24 10:24 Methylprednisolone Sod Succ 125 Mg/2 Ml Vial IVPUSH 04/07/24 09:51 80 mg ONCE ONE Administration Medical Decision Making Medical Decision Making [facility] Narrative: The patient is a 63-year-old woman with a history of COPD who was not normally on oxygen. She has had respiratory symptoms for about 6 days. She has been taking prednisone and doxycycline for approximately 3 days and has gotten no better. In fact she seems to have gotten somewhat worse and today was hypoxic. On exam she has bilateral wheezes. She has a negative chest x-ray. Her viral swab is positive for RSV. The patient was treated with IV steroids and bronchodilator updraft treatments. She continues to have an oxygen requirement which is new. She will therefore be admitted to the hospitalist service. Lab Data 04/07/24 10:24 04/07/24 14:12 Labs: Lab Results 04/07/24 04/07/24 04/07/24 Range/Units 09:58 10:24 10:25 WBC 12.0 H (4.8-10.8) X10*3/uL RBC 5.91 H (4.20-5.50) X10*6/uL Hgb 16.9 H (12.0-16.0) g/dl Hct 51.6 H (37.0-47.0) % MCV 87.3 (80.0-98.0) fL MCH 28.6 (27.0-33.0) pg MCHC 32.8 (31.0-35.0) g/dl RDW 14.1 (11.0-16.0) % Plt Count 259 (160-400) X10*3/uL MPV 10.4 (9.4-12.3) fL Immature Gran % (Auto) 0.8 H (0.0-0.4) % Neut % (Auto) 70.4 (45-73) % Lymph % (Auto) 16.9 L (20-40) % [place] % (Auto) 9.3 (2-11) % Eos % (Auto) 1.8 (0-4) % Baso % (Auto) 0.8 (0-2) % Lymph # (Auto) 2.0 (1.2-4.9) X10*3/uL [place] # (Auto) 1.1 (0.1-1.2) X10*3/uL Eos # (Auto) 0.2 (0.0-0.4) X10*3/uL Baso # (Auto) 0.1 (0.0-0.2) X10*3/uL Abs Immat Gran (auto) 0.09 H (0.00-0.03) X10*3/uL Absolute Neuts (auto) 8.4 H (2.0-8.3) x10*3/uL Absolute Nucleated RBC 0.000 (0.0-0.012) X10*3/uL Nucleated RBC % (auto) 0.0 (0.0-0.2) /100WBC PT (10.9-12.4) SEC INR (0.9-1.1) VBG pH (7.32-7.43) VBG pCO2 mmHg VBG pO2 mmHg VBG HCO3 (22-26) mmol/L VBG O2 Saturation % VBG Base Excess mmol/L Sodium (135-145) mmol/L Potassium (3.3-5.1) mmol/L Chloride (96-108) mmol/L Carbon Dioxide (22-29) mmol/L Anion Gap (12-20) BUN (9-16) mg/dL Creatinine (0.5-1.4) mg/dL Estim Creat Clear Calc Estimated GFR Random Glucose (60-115) mg/dL Calcium (8.4-10.2) mg/dL Magnesium (1.6-2.6) mg/dL Total Bilirubin (0.0-1.0) mg/dL Direct Bilirubin (0.0-0.5) mg/dL AST (5-31) U/L ALT (0-31) U/L Alkaline Phosphatase (39-117) U/L Troponin I High Sens (<3.5-17.0) ng/L C-Reactive Protein (< or = 0.50) mg/dL B-Natriuretic Peptide 26 (<100) pg/mL Total Protein (6.5-8.0) g/dL Albumin (3.5-5.0) g/dL Influenza Type A (PCR) NEGATIVE (Negative) Influenza Type B (PCR) NEGATIVE (Negative) RSV RNA Qual (PCR) POSITIVE A (Negative) SARS-CoV-2 RNA (RT-PCR) NEGATIVE (Negative) 04/07/24 04/07/24 Range/Units 10:29 14:12 WBC (4.8-10.8) X10*3/uL RBC (4.20-5.50) X10*6/uL Hgb (12.0-16.0) g/dl Hct (37.0-47.0) % MCV (80.0-98.0) fL MCH (27.0-33.0) pg MCHC (31.0-35.0) g/dl RDW (11.0-16.0) % Plt Count (160-400) X10*3/uL MPV (9.4-12.3) fL Immature Gran % (Auto) (0.0-0.4) % Neut % (Auto) (45-73) % Lymph % (Auto) (20-40) % [place] % (Auto) (2-11) % Eos % (Auto) (0-4) % Baso % (Auto) (0-2) % Lymph # (Auto) (1.2-4.9) X10*3/uL [place] # (Auto) (0.1-1.2) X10*3/uL Eos # (Auto) (0.0-0.4) X10*3/uL Baso # (Auto) (0.0-0.2) X10*3/uL Abs Immat Gran (auto) (0.00-0.03) X10*3/uL Absolute Neuts (auto) (2.0-8.3) x10*3/uL Absolute Nucleated RBC (0.0-0.012) X10*3/uL Nucleated RBC % (auto) (0.0-0.2) /100WBC PT 11.1 (10.9-12.4) SEC INR 1.0 (0.9-1.1) VBG pH 7.43 (7.32-7.43) VBG pCO2 40 mmHg VBG pO2 27 mmHg VBG HCO3 26 (22-26) mmol/L VBG O2 Saturation 33.0 % VBG Base Excess 2.5 mmol/L Sodium 142 (135-145) mmol/L Potassium 3.9 (3.3-5.1) mmol/L Chloride 111 H (96-108) mmol/L Carbon Dioxide 22 (22-29) mmol/L Anion Gap 13 (12-20) BUN 17 H (9-16) mg/dL Creatinine 0.87 (0.5-1.4) mg/dL Estim Creat Clear Calc 66.6 Estimated GFR > 60 Random Glucose 331 H (60-115) mg/dL Calcium 8.8 (8.4-10.2) mg/dL Magnesium 1.8 (1.6-2.6) mg/dL Total Bilirubin 0.6 (0.0-1.0) mg/dL Direct Bilirubin 0.2 (0.0-0.5) mg/dL AST 38 H (5-31) U/L ALT 34 H (0-31) U/L Alkaline Phosphatase 67 (39-117) U/L Troponin I High Sens 5.6 D (<3.5-17.0) ng/L C-Reactive Protein 0.85 H (< or = 0.50) mg/dL B-Natriuretic Peptide (<100) pg/mL Total Protein 6.6 (6.5-8.0) g/dL Albumin 3.7 (3.5-5.0) g/dL Influenza Type A (PCR) (Negative) Influenza Type B (PCR) (Negative) RSV RNA Qual (PCR) (Negative) SARS-CoV-2 RNA (RT-PCR) (Negative) Independent Interpretation I performed an independent interpretation of an: EKG Interpretation: 07/31/2008 Discharge Plan Discharge Clinical Impression: Acute exacerbation of chronic obstructive pulmonary disease, RSV infection Patient Disposition: Home, Self-Care Interventions: Admission Worksheet (ED) Last Done: 04/07/24 16:00
--- NOTE | 2024-04-07 09:37 | ECG_ITS ---
Test Reason : SHORTNESS OF BREATH Blood Pressure : */* mmHG Vent. Rate : 83 BPM Atrial Rate : 83 BPM P-R Int : 138 ms QRS Dur : 96 ms QT Int : 416 ms P-R-T Axes : 57 -14 40 degrees QTcB Int : 488 ms Normal sinus rhythm Incomplete right bundle branch block Borderline ECG When compared with ECG of 24-Dec-2023 13:18, No significant change was found Referred By: Fernando Delacruz Electronically Signed By: CHAPIN ELDRIDGE
[2024-04-07] MEDS: Albuterol Sulfate 2.5 MG, Albuterol/Iprat 2.5/0.5MG 3 ML 3 ML INHALE ×2 (10:07→13:15)
[2024-04-07] MEDS: methylPREDNISolone Sod Succ 125 MG/2 ML VIAL 80 MG IVPUSH (10:24)
[2024-04-07 10:29] LABS: MANUAL DIFF FLAG NO
[2024-04-07 10:33] LABS: Basophils Absolute Auto 0.1 X10*3/uL (0.0-0.2); Basophils Percent Auto 0.8 % (0-2); Eosinophils Absolute Auto 0.2 X10*3/uL (0.0-0.4); Eosinophils Percent Auto 1.8 % (0-4); Hematocrit 51.6 % (37.0-47.0); Hemoglobin 16.9 g/dl (12.0-16.0); Imm Gran Abs Auto 0.09 X10*3/uL (0.00-0.03); Imm Gran Pct Auto 0.8 % (0.0-0.4); Lymphocytes Percent Auto 16.9 % (20-40); Mean Corpuscular HGB Conc 32.8 g/dl (31.0-35.0); Mean Corpuscular Hemoglobin 28.6 pg (27.0-33.0); Mean Corpuscular Volume 87.3 fL (80.0-98.0); Mean Platelet Volume 10.4 fL (9.4-12.3); Monocytes Absolute Auto 1.1 X10*3/uL (0.1-1.2); Monocytes Percent Auto 9.3 % (2-11); Neutrophils Absolute Auto 8.4 x10*3/uL (2.0-8.3); Neutrophils Percent Auto 70.4 % (45-73); Platelet Count 259 X10*3/uL (160-400); Red Blood Count 5.91 X10*6/uL (4.20-5.50); Red Cell Distribution Width 14.1 % (11.0-16.0); Venous Blood Gas Refer to POC result
[2024-04-07 10:34] LABS: VBG Base Excess 2.5 mmol/L; VBG HCO3 26 mmol/L (22-26); VBG pCO2 40 mmHg; VBG pH 7.43 (7.32-7.43); VBG pO2 27 mmHg
[2024-04-07 10:45] LABS: Influenza A PCR NEGATIVE (Negative); Influenza B PCR NEGATIVE (Negative); Resp Syncy Virus RNA Qual PCR POSITIVE (Negative); SARS COV2 PCR INHOUSE NEGATIVE (Negative)
[2024-04-07 10:55] LABS: B Type Natriuretic Peptide 26 pg/mL (<100)
--- NOTE | 2024-04-07 14:27 | P.HPHOSP_ITS ---
History of Present Illness Date of Service: 04/07/24 Attending physician on admission: Dhaval Hancock Chief Complaint: SOB Pt is a 63-year-old female with a PMH significant for?CAD, insulin-dependent type 2 diabetes COPD not on home O2, HTN, hypothyroidism, GERD, and gout who presents to the ED with?cough, SOB, and hypoxia at home. Pt states has been experiencing shortness of breath, difficulty breathing, and cough for approximately 1 week. Cough initially productive but has been dry for the past 2 days. Presented to [facility] on Thursday and prescribed a course of doxycycline and prednisone. Has tested negative for COVID x3 times. Pt also complains of right shoulder pain radiating to right ribs associated with cough and inspiration. Has been feeling weak and with reduced p.o. intake. This morning pt awoke with difficulty breathing and noted on her home pulse ox that her oxygen saturation was 86%. No fever or chills. Denies nausea, vomiting, diarrhea, abdominal pain. Currently still smokes approximately half a pack daily. In the ED pt was tachypneic up to 28 in desatting as low as 84% on RA. Labs were significant for testing positive for RSV and leukocytosis of 12.0, otherwise grossly unremarkable and around baseline for pt. No significant electrolyte abnormalities. Renal function WNL. AST and ALT mildly elevated at 38 and 34 respectively. CXR negative for acute cardiopulmonary disease. EKG demonstrated normal sinus rhythm evidence of significant ischemic changes. Pt was treated with DuoNebs and Solu-Medrol. Pt will be admitted to the hospital for treatment and further evaluation of acute hypoxic respiratory failure in the setting of acute COPD exacerbation from RSV infection. Review of Systems 2 Review of Systems: Negative except for that which is stated in the [facility] Medical History Asthma-COPD overlap syndrome Allergies History of back pain History of neuropathy Smokes tobacco daily Opioid dependence Nephrolithiasis Hyperlipidemia HTN (hypertension) Cardiomyopathy Myocardial infarction CAD (coronary artery disease) Cough Hypothyroidism, postsurgical Tubular adenoma Diabetes MCKAY (obstructive sleep apnea) Irritable bowel syndrome Hyperthyroidism Polycythemia Smoker Hypoxia COPD exacerbation Lesion of bronchus Tracheal anomaly Multinodular goiter Vitamin D deficiency Atelectasis Subclinical hyperthyroidism Goiter Pneumonia Pulmonary nodules COPD (chronic obstructive pulmonary disease) Family History Father No problems noted. Mother No problems noted. Paternal Aunt Diabetes Surgical History History of coronary artery stent placement Hx of thyroidectomy History of thyroid surgery History of esophagogastroduodenoscopy (EGD) Hx of colonoscopy History of back surgery History of ureterostomy S/P lumpectomy, right breast History of cholecystectomy History of tonsillectomy Social History Household Members: Spouse Housing: House Do you presently have visiting nurse or other home services: No Alcohol intake: never Comment: pt steady on feet Patient Tobacco Use Status: Current everyday Tobacco user Tobacco use type: Cigar Cigarette Packs Per Day: 0.5 Cigarettes Per Day: 10 Smoked in Last 30 Days: Yes e-Cigarette/Vaping Use: Never Used Patient Interested in Nicotine Replacement: Yes Second Hand Smoke Exposure: Yes Use of substances other than those prescribed or required for medical reasons: Yes Substance Use Type: Other Substance Use Type Other:: CBD Currently Displaying Signs/Symptoms of Drug Intoxication Withdrawal: No Have you been hit, kicked, punched, or otherwise hurt by someone within the past year? If so, by whom?: No Do you feel safe in your current relationship?: No Is there a partner from a previous relationship who is making you feel unsafe now?: No Are you made to feel afraid or neglected: No Anab[employer]ism Healthcare Practices: Roman Catholic Advance Directives: Yes Advance Directives on File: Yes Advance Directives Date on File: 01/24/21 Do you have a plan to hurt others: No Plan Recently lost weight without trying: Yes How much weight loss: Unsure Patient : No : No Poor oral hygiene: No service: No Current occupational status: disabled Meds Allergies Allergy/AdvReac Type Severity Reaction Status Date / Time HANK Inhibitors Allergy Severe ANGIO Verified 04/07/24 08:46 [HANK INHIBITORS] EDEMA enalapril Allergy Severe Anaphylaxis Verified 04/07/24 08:46 erythromycin base Allergy Severe HIVES ALL Verified 04/07/24 08:46 [ERYTHROMYCIN BASE] OVER metformin Allergy Unknown Verified 04/07/24 08:46 hydromorphone [From DILAUDID] AdvReac Severe [place], Verified 04/07/24 08:46 PT DOES NOT LIKE THE FEELING MED GIVES HER Home Medications ?Medication ?Instructions ?Recorded ?Confirmed ?Last Taken ?Type aspirin 81 mg tablet,delayed 81 mg PO BEDTIME 12/24/19 04/07/24 04/06/24 History release atorvastatin 80 mg tablet 80 mg PO BEDTIME 12/24/19 04/07/24 04/06/24 History carvedilol 6.25 mg tablet 6.25 mg PO BID 12/24/19 04/07/24 04/07/24 History cetirizine 10 mg tablet 10 mg PO DAILY PRN allergies 12/24/19 04/07/24 04/07/24 History montelukast 10 mg tablet 10 mg PO BEDTIME 12/24/19 04/07/24 04/06/24 History omeprazole 20 mg capsule,delayed 20 mg PO BID@0630,1630 12/24/19 04/07/24 04/07/24 History release ipratropium 20 mcg-albuterol 100 2 puff inhalation BID 01/02/20 04/07/24 04/07/24 History mcg/actuation mist for inhalation (Combivent Respimat) docusate sodium 100 mg capsule 1 cap PO BEDTIME Constipation 01/24/21 04/07/24 04/07/24 History blood sugar diagnostic (FreeStyle #10 ea 10/07/21 03/03/24 10/20/22 09:00 History Lite Strips) lancets 33 gauge (TRUEplus Lancets) #100 ea 10/07/21 03/03/24 10/20/22 09:00 History naloxone 4 mg/actuation nasal spray 1 spray intranasal ONCE PRN Opioid 10/07/21 04/07/24 01/29/23 History Overdose oxycodone-acetaminophen 7.5 mg-325 1 tab PO Q6H PRN severe pain 06/23/22 04/07/24 04/07/24 History mg tablet fluticasone propionate 50 1 spray intranasal DAILY PRN 07/25/22 04/07/24 Unknown History mcg/actuation nasal Congestion spray,suspension dulaglutide 1.5 mg/0.5 mL 1.5 mg subcut FR 08/06/22 04/07/24 04/01/24 History subcutaneous pen injector ([facility]) ipratropium 0.5 mg-albuterol 3 mg 3 ml inhalation QID PRN Shortness 01/30/23 04/07/24 06/17/23 06:00 History (2.5 mg base)/3 mL nebulization Of Breath Or Wheezing soln sennosides 8.6 mg tablet (senna) 8.6 mg PO BID Constipation 01/30/23 04/07/24 01/29/23 History nebulizers 06/03/23 03/03/24 Unknown History empagliflozin 10 mg tablet 10 mg PO DAILY 02/10/24 04/07/24 04/07/24 History (Jardiance) methocarbamol 750 mg tablet 750 mg PO Q8H PRN neuropathy 03/03/24 04/07/24 04/07/24 History fluconazole 100 mg tablet 100 mg PO DAILY PRN Flares 04/07/24 04/07/24 Unknown History (Diflucan) insulin aspart U-100 100 unit/mL See Protocol subcut TIDAC 04/07/24 04/07/24 04/07/24 History (3 mL) subcutaneous pen (Novolog FlexPen U-100 Insulin aspart) insulin glargine 100 unit/mL (3 35 unit subcut BID 04/07/24 04/07/24 04/07/24 History mL) subcutaneous pen (Lantus Solostar U-100 Insulin) levothyroxine 112 mcg tablet 112 mcg PO DAILY@0600 04/07/24 04/07/24 04/07/24 History lidocaine 5 % topical patch 1 patch topical DAILY PRN pain 04/07/24 04/07/24 Unknown History pregabalin 100 mg capsule 100 mg PO TID 04/07/24 04/07/24 04/07/24 History pyridoxine (vitamin B6) 50 mg 50 mg PO BEDTIME 04/07/24 04/07/24 04/06/24 History tablet Physical Exam 2 Vital Signs and Narrative: Vital Signs: Last Vital Signs Temp 98.4 F 04/07/24 14:05 Pulse 87 04/07/24 14:00 Resp 16 04/07/24 14:00 BP 129/68 04/07/24 14:00 Pulse Ox 91 L 04/07/24 14:05 O2 Del Method Nasal Cannula 04/07/24 14:05 O2 Flow Rate 2 04/07/24 09:08 BMI result Body Mass Index 28.0 Constitutional: Alert, in no acute distress. Mental Status: Oriented to person, place and time. Eyes: Pupils are equal, round, and reactive to light. Ear, Nose, and Throat: Oropharynx clear, mucous membranes moist. Ears and nose without deformities. Trachea midline. Respiratory: Diminished with diffuse inspiratory and end expiratory wheezing bilaterally. Cardiovascular: S1, S2 regular. No murmurs, rubs, or gallops. Gastrointestinal: Abdomen soft, non-tender, non-distended. Normal bowel sounds. Neurologic: Cranial nerves II-XII are grossly intact bilaterally. No focal neurological deficits. Moves all extremities spontaneously. Skin: Warm, dry. Extremities: No edema. Psychiatric: Normal mood and affect. Results Labs 04/07/24 10:24 04/07/24 14:12 Labs: Laboratory Results - last 24 hr 04/07/24 04/07/24 04/07/24 09:58 10:24 10:25 MCV 87.3 MCH 28.6 MCHC 32.8 RDW 14.1 Plt Count 259 MPV 10.4 Immature Gran % (Auto) 0.8 H Neut % (Auto) 70.4 Lymph % (Auto) 16.9 L [place] % (Auto) 9.3 Eos % (Auto) 1.8 Baso % (Auto) 0.8 Lymph # (Auto) 2.0 [place] # (Auto) 1.1 Eos # (Auto) 0.2 Baso # (Auto) 0.1 Abs Immat Gran (auto) 0.09 H Absolute Neuts (auto) 8.4 H Absolute Nucleated RBC 0.000 Nucleated RBC % (auto) 0.0 VBG pH VBG pCO2 VBG pO2 VBG HCO3 VBG O2 Saturation VBG Base Excess B-Natriuretic Peptide 26 Influenza Type A (PCR) NEGATIVE Influenza Type B (PCR) NEGATIVE RSV RNA Qual (PCR) POSITIVE A SARS-CoV-2 RNA (RT-PCR) NEGATIVE 04/07/24 10:29 MCV MCH MCHC RDW Plt Count MPV Immature Gran % (Auto) Neut % (Auto) Lymph % (Auto) [place] % (Auto) Eos % (Auto) Baso % (Auto) Lymph # (Auto) [place] # (Auto) Eos # (Auto) Baso # (Auto) Abs Immat Gran (auto) Absolute Neuts (auto) Absolute Nucleated RBC Nucleated RBC % (auto) VBG pH 7.43 VBG pCO2 40 VBG pO2 27 VBG HCO3 26 VBG O2 Saturation 33.0 VBG Base Excess 2.5 B-Natriuretic Peptide Influenza Type A (PCR) Influenza Type B (PCR) RSV RNA Qual (PCR) SARS-CoV-2 RNA (RT-PCR) Imaging Radiologist's Impressions: Impressions Chest X-Ray 04/07/24 09:37 IMPRESSION: Unremarkable chest examination. Electronically signed by: Roe Vega MD 04/07/2024 09:56 [place] [facility] (1) RSV infection: Status: Acute (2) Acute exacerbation of chronic obstructive pulmonary disease: Status: Acute (3) Hypoxia: Status: Acute Plan Pt is a 63-year-old female with a PMH significant for?CAD, insulin-dependent type 2 diabetes COPD not on home O2, HTN, hypothyroidism, GERD, and gout who presents to the ED with?cough, SOB, and hypoxia at home. Pt will be admitted to the hospital for treatment and further evaluation of acute hypoxic respiratory failure in the setting of acute COPD exacerbation from RSV infection. Acute hypoxic respiratory failure in the setting of COPD exacerbation from RSV infection Pt with SOB, cough, RSV+, desatting to mid 80s on RA Pt received IV steroids and breathing treatments in the ED with minimal response Will treat with Solu-Medrol DuoNebs, and guaifenesin No sepsis: CXR negative for pneumonia, no indication for antibiotics at this time Titrate supplemental O2 >92, wean as tolerated Monitor respiratory status CAD Continue aspirin, statin HTN Continue carvedilol Insulin-dependent type 2 diabetes Sliding-scale insulin, Lantus Diabetic diet Peripheral neuropathy Continue gabapentin Gout Continue allopurinol Full Code Attending:?Dr. Hancock DVT Prophylaxis: Lovenox Pt will require a hospitalization of at least two nights for treatment of?acute hypoxic respiratory failure in the setting of acute COPD exacerbation from RSV infection. Pt require administration of IV steroids, DuoNebs, and supplemental oxygen. Quality Stroke Does the patient have a stroke diagnosis?: No VTE Prior VTE?: No VTE Risk Level:: Medical - moderate - high VTE Device Contraindication: Treatment Not Indicated VTE Drug Contraindication: N/A - Med Ordered
[2024-04-07 14:30] LABS: Prothrombin Time 11.1 SEC (10.9-12.4)
[2024-04-07 14:41] LABS: Alanine Aminotransferase 34 U/L (0-31); Albumin Level 3.7 g/dL (3.5-5.0); Alkaline Phosphatase 67 U/L (39-117); Anion Gap 13 (12-20); Aspartate Amino Transferase 38 U/L (5-31); Bilirubin Direct 0.2 mg/dL (0.0-0.5); Bilirubin Total 0.6 mg/dL (0.0-1.0); Blood Urea Nitrogen 17 mg/dL (9-16); C Reactive Protein 0.85 mg/dL (< or = 0.50); Calcium 8.8 mg/dL (8.4-10.2); Carbon Dioxide 22 mmol/L (22-29); Chloride 111 mmol/L (96-108); Creatinine Clr Calc Pharmacy 66.6; Estimated Glomerular Filt Rate > 60; Glucose Random 331 mg/dL (60-115); Magnesium 1.8 mg/dL (1.6-2.6); Potassium 3.9 mmol/L (3.3-5.1); Sodium 142 mmol/L (135-145); Total Protein 6.6 g/dL (6.5-8.0); Troponin-I High Sensitivity 5.6 ng/L (<3.5-17.0)
[2024-04-07] MEDS: Albuterol/Iprat 2.5/0.5MG 3 ML AMPUL.NEB INHALE ×3 (15:33→23:54)
[2024-04-07] MEDS: 0.9 % Sodium Chloride Flush 3 ML SYRINGE IVFLUSH (15:59)
[2024-04-07] MEDS: Enoxaparin Sodium 40 MG/0.4 ML SYRINGE SUBCUT (15:59)
[2024-04-07 16:21] LABS: Glucose, Whole Blood 308 mg/dL (60-115)
--- NOTE | 2024-04-07 16:47 | PHA.MEDREC ---
Addendum entered by Aleida Gomez [facility] 04/07/24 18:33: reviewed by [facility]. NOT TRELLEGY INJECTION --> TRULICITY Original Note: Pharmacy Consult ? Medication Reconciliation Pharmacy has completed the medication reconciliation. Spoke with patient and she confirmed her medications. She confirmed she just started the Doxycycline 100mg tab 1 BID on Thursday and is on day 3 of the regimen. She confirmed she started the Prednisone 20mg tab Thursday as well and confirmed she is taking 2 tabs daily for 4 days, then 1 tablet daily for 4 days, then 1/2 tablet for 4 days and confirmed she was on day 3 of 2 tabs. She also confirmed while she is taking the Doxycycline 100mg regimen she also has a Fluconazole 100mg tab incase she gets a yeast infection while on the regimen. She stated she stopped taking the Calcium Citrate-Vitamin D3 tablet while taking the antibiotics but states she is going to be starting that back up when she is back home. She confirmed the Trellegy injection once a week and confirmed she takes it on Fridays and took it last Thursday. She also confirmed the dupilumab 300 mg/2 mL subcutaneous pen injection and confirmed she is doing 300mg every 14 days and stated at first she was due for that today but then was not sure and was going to ask her when she was due for it and let us know when he gets back to her. She confirmed the Novolog injection testing it per sliding scale three times a day before meals. She confirmed her Lantus and confirmed she is injecting 35 units twice a day of that. She confirmed she is still using the Methocarmalol 75mg tab as needed for nephropathy in her legs and feet. She confirmed she took all her morning medications this morning and everything else yesterday.
[2024-04-07 17:10] LABS: Glucose, Whole Blood 322 mg/dL (60-115)
[2024-04-07] MEDS: Insulin Lispro 100 UNIT/ML 3 ML VIAL SUBCUT ×2 (17:34→21:30)
[2024-04-07] MEDS: Nicotine 14 MG PATCH.TD24 TRANSDERMA (18:05)
[2024-04-07] MEDS: oxyCODONE HCl Immed Release 5 MG TABLET 7.5 MG PO (18:40)
[2024-04-07] MEDS: Acetaminophen 325 MG TABLET PO (18:41)
[2024-04-07 20:06] LABS: Glucose, Whole Blood 265 mg/dL (60-115)
[2024-04-07] MEDS: Atorvastatin Calcium 80 MG TABLET PO (21:28)
[2024-04-07] MEDS: carvediloL 6.25 MG TABLET PO (21:28)
[2024-04-07] MEDS: Aspirin Enteric Coated 81 MG TABLET.DR PO (21:28)
[2024-04-07] MEDS: Docusate Sodium 100 MG CAPSULE PO (21:28)
[2024-04-07] MEDS: Pyridoxine HCl (Vitamin B6) 50 MG TABLET PO (21:28)
[2024-04-07] MEDS: Pregabalin 100 MG CAPSULE PO (21:28)
[2024-04-07] MEDS: Sennosides 8.6 MG TABLET PO (21:28)
[2024-04-07] MEDS: Montelukast Sodium 10 MG TABLET PO (21:29)
[2024-04-07] MEDS: methylPREDNISolone Sod Succ 40 MG/ML VIAL IVPUSH (21:31)
[2024-04-07] MEDS: Insulin Glargine,Hum.rec.anlog 100 UNIT/ML 10 ML VIAL 25 UNIT SUBCUT (21:31)
[2024-04-08] VITALS (10 sets, daily range): BP systolic 136–153; BP diastolic 69–78; PULSE 73–88; RESP 18–20; TEMP 36.3–37.1; O2SAT 88–93
[2024-04-08] MEDS: Acetaminophen 325 MG TABLET PO ×4 (00:15→18:28)
[2024-04-08] MEDS: methocarbamoL 750 MG TABLET PO (00:15)
[2024-04-08] MEDS: oxyCODONE HCl Immed Release 5 MG TABLET 7.5 MG PO ×4 (00:15→18:28)
[2024-04-08] MEDS: Albuterol/Iprat 2.5/0.5MG 3 ML AMPUL.NEB INHALE ×5 (05:42→19:31)
[2024-04-08] MEDS: Omeprazole 20 MG CAPSULE.DR PO ×2 (06:10→16:35)
[2024-04-08] MEDS: Levothyroxine Sodium 112 MCG TABLET PO (06:10)
[2024-04-08 07:45] LABS: Glucose, Whole Blood 254 mg/dL (60-115)
[2024-04-08] MEDS: methylPREDNISolone Sod Succ 40 MG/ML VIAL IVPUSH ×2 (08:10→20:42)
[2024-04-08] MEDS: Insulin Lispro 100 UNIT/ML 3 ML VIAL SUBCUT ×4 (08:10→20:45)
[2024-04-08] MEDS: Pregabalin 100 MG CAPSULE PO ×3 (08:11→20:42)
[2024-04-08] MEDS: allopurinoL 100 MG TABLET PO (08:11)
[2024-04-08] MEDS: carvediloL 6.25 MG TABLET PO ×2 (08:11→20:44)
[2024-04-08] MEDS: Nicotine 14 MG PATCH.TD24 TRANSDERMA (08:11)
[2024-04-08] MEDS: Insulin Glargine,Hum.rec.anlog 100 UNIT/ML 10 ML VIAL 35 UNIT SUBCUT ×2 (08:11→20:44)
[2024-04-08] MEDS: Sennosides 8.6 MG TABLET PO ×2 (08:11→20:42)
[2024-04-08] MEDS: Empagliflozin 10 MG TABLET PO (08:11)
[2024-04-08] MEDS: Roflumilast 500 MCG TABLET PO (08:11)
[2024-04-08] MEDS: 0.9 % Sodium Chloride Flush 3 ML SYRINGE IVFLUSH ×3 (08:16→21:39)
[2024-04-08] MEDS: Fluticasone/Umeclidinium/Vilanterol 100/62.5/25 BLST.W.DEV 1 PUFF INHALE (11:07)
[2024-04-08 11:37] LABS: Glucose, Whole Blood 207 mg/dL (60-115)
--- NOTE | 2024-04-08 12:34 | P.PNIM_ITS ---
Subjective Subjective Date of Service: 04/08/24 Interval History: Acute hypoxic respiratory failure in the setting of COPD exacerbation from RSV infection. Review of Systems sob seems similar has dry cough no fevers Physical Exam 2 Vital Signs: Vital Signs: Last Vital Signs Temp 97.3 F 04/08/24 07:32 Pulse 88 04/08/24 11:09 Resp 20 04/08/24 11:09 BP 136/78 04/08/24 07:32 Pulse Ox 91 L 04/08/24 07:32 O2 Del Method Nasal Cannula 04/08/24 07:32 O2 Flow Rate 3.0 04/08/24 07:32 BMI result Body Mass Index 29.3 Appearance: Alert.? Oriented X3.? . cvs: rrr, [id number]. res: clear to auscultation ,no rhonchii or wheezing abd: no rebound or guarding ,nt, bs present. ext pulses present , no cyanosis. neuro: axo3 , nonfocal. Objective Data Active Medications Acetaminophen (Acetaminophen 325 Mg Tablet) 650 mg PO Q6H PRN PRN Reason: Pain, Mild 1-3,fever,headache Acetaminophen (Acetaminophen 325 Mg Tablet) 325 mg PO Q6H [facility] Last Admin: 04/08/24 12:01 Dose: 325 mg Documented By: EUGENIA Albuterol/Ipratropium (Albuterol/Iprat 2.5/0.5mg 3 Ml Ampul.Neb) 3 ml INHALE RQ4H WHILE AWAKE [facility] Last Admin: 04/08/24 11:07 Dose: 3 ml Documented By: CAROLINE Albuterol/Ipratropium (Albuterol/Iprat 2.5/0.5mg 3 Ml Ampul.Neb) 3 ml INHALE RQ4H WHILE AWAKE PRN PRN Reason: Shortness of Breath/Wheezing Last Admin: 04/08/24 05:42 Dose: 3 ml Documented By: MOISES Allopurinol (Allopurinol 100 Mg Tablet) 100 mg PO DAILY [facility] Last Admin: 04/08/24 08:11 Dose: 100 mg Documented By: EUGENIA Aspirin (Aspirin Enteric Coated 81 Mg Tablet.) 81 mg PO BEDTIME [facility] Last Admin: 04/07/24 21:28 Dose: 81 mg Documented By: TONI Atorvastatin Calcium (Atorvastatin Calcium 80 Mg Tablet) 80 mg PO BEDTIME [facility]; Protocol Last Admin: 04/07/24 21:28 Dose: 80 mg Documented By: TONI Calcium Carbonate (Calcium Carbonate 750 Mg Tab.Chew) 750 mg PO Q4H PRN PRN Reason: Heartburn Carvedilol (Carvedilol 6.25 Mg Tablet) 6.25 mg PO BID [facility]; Protocol Last Admin: 04/08/24 08:11 Dose: 6.25 mg Documented By: EUGENIA Celecoxib (Celecoxib 200 Mg Capsule) 200 mg PO BID PRN PRN Reason: Pain, Mild (Pain Scale 1-3) Docusate Sodium (Docusate Sodium 100 Mg Capsule) 100 mg PO BEDTIME [facility] Last Admin: 04/07/24 21:28 Dose: 100 mg Documented By: TONI Empagliflozin (Empagliflozin 10 Mg Tablet) 10 mg PO DAILY [facility] Last Admin: 04/08/24 08:11 Dose: 10 mg Documented By: EUGENIA Enoxaparin Sodium (Enoxaparin Sodium 40 Mg/0.4 Ml Syringe) 40 mg SUBCUT Q24H [facility] Last Admin: 04/07/24 15:59 Dose: 40 mg Documented By: RUFINO Fluticasone Propionate (Fluticasone Propionate Nasal 16 Gm [place]) 1 spray NOSTRIL-B DAILY PRN PRN Reason: Congestion Fluticasone/Umeclidinium/Vilanterol (Fluticasone/Umeclidinium/Vilanterol 100/62.5/25 Blst.W.Dev) 1 puff INHALE RDAILY [facility] Last Admin: 04/08/24 11:07 Dose: 1 puff Documented By: CAROLINE Glucose (Glucose Gel 15 Gm Gel..Gram.) 15 gm PO Q15M PRN; Protocol PRN Reason: per Hypoglycemia Standing Ord. Guaifenesin/Dextromethorphan (Guaifenesin Dm 200/20/10 Ml 10 Ml Syrup) 10 ml PO Q4H PRN PRN Reason: Cough Dextrose (D10) 250 mls @ 750 mls/hr IV Q15M PRN; Protocol PRN Reason: per Hypoglycemia Standing Ord. Insulin Glargine (Insulin Glargine,Hum.Rec.Anlog 100 Unit/Ml 10 Ml Vial) 35 unit SUBCUT BEDTIME [facility] Insulin Glargine (Insulin Glargine,Hum.Rec.Anlog 100 Unit/Ml 10 Ml Vial) 35 unit SUBCUT DAILY [facility] Last Admin: 04/08/24 08:11 Dose: 35 unit Documented By: EUGENIA Insulin Human Lispro (Insulin Lispro 100 Unit/Ml 3 Ml Vial) 0 unit SUBCUT QIDACHS [facility]; Protocol Last Admin: 04/08/24 12:01 Dose: 4 unit Documented By: EUGENIA Levothyroxine Sodium (Levothyroxine Sodium 112 Mcg Tablet) 112 mcg PO DAILY@0600 [facility] Last Admin: 04/08/24 06:10 Dose: 112 mcg Documented By: TONI Loratadine (Loratadine 10 Mg Tablet) 10 mg PO DAILY PRN PRN Reason: allergies Magnesium Hydroxide (Milk Of Magnesia 30 Ml Oral.Susp) 30 ml PO DAILY PRN PRN Reason: Constipation Melatonin (Melatonin 3 Mg Tablet) 6 mg PO BEDTIME PRN PRN Reason: Insomnia Methocarbamol (Methocarbamol 750 Mg Tablet) 750 mg PO Q8H PRN PRN Reason: neuropathy Last Admin: 04/08/24 00:15 Dose: 750 mg Documented By: TONI Methylprednisolone Sodium Succinate (Methylprednisolone Sod Succ 40 Mg/Ml Vial) 40 mg IVPUSH Q12H [facility] Last Admin: 04/08/24 08:10 Dose: 40 mg Documented By: EUGENIA Montelukast Sodium (Montelukast Sodium 10 Mg Tablet) 10 mg PO BEDTIME [facility] Last Admin: 04/07/24 21:29 Dose: 10 mg Documented By: TONI Nicotine (Nicotine 14 Mg Patch.Td24) 14 mg TRANSDERMA DAILY [facility] Last Admin: 04/08/24 08:11 Dose: 14 mg Documented By: EUGENIA Non-Formulary Medication (Dulaglutide [Trulicity]) 1.5 mg SUBCUT FR [facility] Non-Formulary Medication (Dupilumab [Dupixent Pen]) 300 mg SUBCUT Q14D [facility] Omeprazole (Omeprazole 20 Mg Capsule.) 20 mg PO BID@0630,1630 [facility] Last Admin: 04/08/24 06:10 Dose: 20 mg Documented By: TONI Ondansetron HCl (Ondansetron Hcl 4 Mg/2 Ml Vial) 4 mg IVPUSH Q8H PRN PRN Reason: Nausea and Vomiting Oxycodone HCl (Oxycodone Hcl Immed Release 5 Mg Tablet) 7.5 mg PO Q6H [facility] Last Admin: 04/08/24 12:01 Dose: 7.5 mg Documented By: EUGENIA Pregabalin (Pregabalin 100 Mg Capsule) 100 mg PO TID [facility] Last Admin: 04/08/24 08:11 Dose: 100 mg Documented By: EUGENIA Pyridoxine HCl (Pyridoxine Hcl (Vitamin B6) 50 Mg Tablet) 50 mg PO BEDTIME [facility] Last Admin: 04/07/24 21:28 Dose: 50 mg Documented By: TONI Roflumilast (Roflumilast 500 Mcg Tablet) 500 mcg PO DAILY [facility] Last Admin: 04/08/24 08:11 Dose: 500 mcg Documented By: EUGENIA Senna (Sennosides 8.6 Mg Tablet) 8.6 mg PO BID [facility] Last Admin: 04/08/24 08:11 Dose: 8.6 mg Documented By: EUGENIA Sodium Chloride (0.9 % Sodium Chloride Flush 3 Ml Syringe) 3 ml IVFLUSH QSHIFT [facility] Last Admin: 04/08/24 08:16 Dose: 3 ml Documented By: EUGENIA Vitamin D (Cholecalciferol (Vitamin D3) 25 Mcg Tablet) 50 mcg PO DAILY [facility] Last Admin: 04/08/24 08:13 Dose: Not Given Documented By: EUGENIA Non-Admin Reason: Patient Refused Labs 04/07/24 10:24 04/07/24 14:12 Labs: Laboratory Results - last 24 hr 04/07/24 04/07/24 04/07/24 14:12 16:17 17:07 PT 11.1 INR 1.0 Anion Gap 13 Estim Creat Clear Calc 66.6 Estimated GFR > 60 POC Glucose 308 H 322 H Random Glucose 331 H Calcium 8.8 Magnesium 1.8 Total Bilirubin 0.6 Direct Bilirubin 0.2 AST 38 H ALT 34 H Alkaline Phosphatase 67 Troponin I High Sens 5.6 D C-Reactive Protein 0.85 H Total Protein 6.6 Albumin 3.7 04/07/24 04/08/24 04/08/24 19:49 07:40 11:31 PT INR Anion Gap Estim Creat Clear Calc Estimated GFR POC Glucose 265 H 254 H 207 H Random Glucose Calcium Magnesium Total Bilirubin Direct Bilirubin AST ALT Alkaline Phosphatase Troponin I High Sens C-Reactive Protein Total Protein Albumin Assessment and Plan (1) RSV infection: Status: Acute (2) Acute exacerbation of chronic obstructive pulmonary disease: Status: Acute Plan 63-year-old female with a PMH significant for?CAD, insulin-dependent type 2 diabetes COPD not on home O2, HTN, hypothyroidism, GERD, and gout who presents to the ED with?cough, SOB, and hypoxia at home. Pt will be admitted to the hospital for treatment and further evaluation of acute hypoxic respiratory failure in the setting of acute COPD exacerbation from RSV infection. Acute hypoxic respiratory failure in the setting of COPD exacerbation from RSV infection SOBsimilar, cough, RSV+, desatting to mid 80s on RA CXR negative for pneumonia, no indication for antibiotics at this time Solu-Medrol DuoNebs, and guaifenesin,Titrate supplemental O2 >92, wean as tolerated Monitor respiratory status CAD Continue aspirin, statin HTN Continue carvedilol Insulin-dependent type 2 diabetes Sliding-scale insulin, Lantus Diabetic diet Peripheral neuropathy Continue gabapentin Gout Continue allopurinol Full Code DVT Prophylaxis: Lovenox ongoing need for hospitalization for treatment of?acute hypoxic respiratory failure in the setting of acute COPD exacerbation from RSV infection. Pt require administration of IV steroids, DuoNebs, and supplemental oxygen. Quality Stroke Does the patient have a stroke diagnosis?: No VTE Prior VTE?: No VTE Risk Level:: Medical - moderate - high VTE Device Contraindication: Treatment Not Indicated VTE Drug Contraindication: N/A - Med Ordered
--- NOTE | 2024-04-08 12:50 | MHC.CM.PN ---
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
[2024-04-08] MEDS: Enoxaparin Sodium 40 MG/0.4 ML SYRINGE SUBCUT (15:22)
[2024-04-08 16:20] LABS: Glucose, Whole Blood 196 mg/dL (60-115)
[2024-04-08 20:28] LABS: Glucose, Whole Blood 205 mg/dL (60-115)
[2024-04-08] MEDS: Docusate Sodium 100 MG CAPSULE PO (20:42)
[2024-04-08] MEDS: Aspirin Enteric Coated 81 MG TABLET.DR PO (20:43)
[2024-04-08] MEDS: Atorvastatin Calcium 80 MG TABLET PO (20:43)
[2024-04-08] MEDS: Montelukast Sodium 10 MG TABLET PO (20:44)
[2024-04-08] MEDS: guaiFENesin DM 200/20/10 ML 10 ML SYRUP PO (21:38)
[2024-04-09] VITALS (11 sets, daily range): BP systolic 120–155; BP diastolic 71–82; PULSE 78–93; RESP 16–20; TEMP 36.4–36.6; O2SAT 88–93
[2024-04-09] MEDS: oxyCODONE HCl Immed Release 5 MG TABLET 7.5 MG PO ×4 (00:39→18:20)
[2024-04-09] MEDS: Acetaminophen 325 MG TABLET PO ×4 (00:40→18:19)
[2024-04-09] MEDS: Albuterol/Iprat 2.5/0.5MG 3 ML AMPUL.NEB INHALE ×6 (00:47→20:53)
[2024-04-09] MEDS: guaiFENesin DM 200/20/10 ML 10 ML SYRUP PO ×3 (04:51→21:54)
[2024-04-09] MEDS: Omeprazole 20 MG CAPSULE.DR PO ×2 (05:30→16:46)
[2024-04-09] MEDS: Levothyroxine Sodium 112 MCG TABLET PO (06:06)
[2024-04-09 07:21] LABS: Glucose, Whole Blood 181 mg/dL (60-115)
[2024-04-09] MEDS: Empagliflozin 10 MG TABLET PO (08:12)
[2024-04-09] MEDS: Roflumilast 500 MCG TABLET PO (08:12)
[2024-04-09] MEDS: methylPREDNISolone Sod Succ 40 MG/ML VIAL IVPUSH ×2 (08:12→20:06)
[2024-04-09] MEDS: allopurinoL 100 MG TABLET PO (08:12)
[2024-04-09] MEDS: Sennosides 8.6 MG TABLET PO ×2 (08:12→20:03)
[2024-04-09] MEDS: carvediloL 6.25 MG TABLET PO ×2 (08:12→20:05)
[2024-04-09] MEDS: Pregabalin 100 MG CAPSULE PO ×3 (08:12→20:02)
[2024-04-09] MEDS: Nicotine 14 MG PATCH.TD24 TRANSDERMA (08:13)
[2024-04-09] MEDS: Fluticasone/Umeclidinium/Vilanterol 100/62.5/25 BLST.W.DEV 1 PUFF INHALE (08:13)
[2024-04-09] MEDS: Insulin Lispro 100 UNIT/ML 3 ML VIAL SUBCUT ×4 (08:14→20:05)
[2024-04-09] MEDS: 0.9 % Sodium Chloride Flush 3 ML SYRINGE IVFLUSH ×3 (08:15→21:55)
[2024-04-09] MEDS: Insulin Glargine,Hum.rec.anlog 100 UNIT/ML 10 ML VIAL 35 UNIT SUBCUT ×2 (08:15→20:06)
[2024-04-09] MEDS: Lactulose 20 GM/30 ML SOLUTION PO (10:21)
--- NOTE | 2024-04-09 10:24 | PC.NURSE ---
Patients brought in her home medication, Danette. Pt self administered her weekly dose at bedside on 04/09
[2024-04-09 11:23] LABS: Glucose, Whole Blood 218 mg/dL (60-115)
--- NOTE | 2024-04-09 12:27 | P.PNIM_ITS ---
Subjective Subjective Date of Service: 04/09/24 Interval History: Acute hypoxic respiratory failure in the setting of COPD exacerbation from RSV infection. Review of Systems sob seems similar no fevers Physical Exam 2 Vital Signs: Vital Signs: Last Vital Signs Temp 97.9 F 04/09/24 07:15 Pulse 85 04/09/24 11:42 Resp 18 04/09/24 11:42 BP 120/82 04/09/24 07:15 Pulse Ox 91 L 04/09/24 07:15 O2 Del Method Nasal Cannula 04/09/24 07:15 O2 Flow Rate 3 04/09/24 07:15 BMI result Body Mass Index 29.3 Appearance: Alert.? Oriented X3.? . cvs: rrr, [id number]. res: clear to auscultation ,no rhonchii or wheezing abd: no rebound or guarding ,nt, bs present. ext pulses present , no cyanosis. neuro: axo3 , nonfocal. Objective Data Active Medications Acetaminophen (Acetaminophen 325 Mg Tablet) 650 mg PO Q6H PRN PRN Reason: Pain, Mild 1-3,fever,headache Acetaminophen (Acetaminophen 325 Mg Tablet) 325 mg PO Q6H [facility] Last Admin: 04/09/24 05:32 Dose: 325 mg Documented By: STEPHANIE Albuterol/Ipratropium (Albuterol/Iprat 2.5/0.5mg 3 Ml Ampul.Neb) 3 ml INHALE RQ4H WHILE AWAKE [facility] Last Admin: 04/09/24 11:42 Dose: 3 ml Documented By: ZACHERY Albuterol/Ipratropium (Albuterol/Iprat 2.5/0.5mg 3 Ml Ampul.Neb) 3 ml INHALE RQ4H WHILE AWAKE PRN PRN Reason: Shortness of Breath/Wheezing Last Admin: 04/09/24 05:37 Dose: 3 ml Documented By: JADA Allopurinol (Allopurinol 100 Mg Tablet) 100 mg PO DAILY [facility] Last Admin: 04/09/24 08:12 Dose: 100 mg Documented By: MAYCOL Aspirin (Aspirin Enteric Coated 81 Mg Tablet.) 81 mg PO BEDTIME [facility] Last Admin: 04/08/24 20:43 Dose: 81 mg Documented By: STEPHANIE Atorvastatin Calcium (Atorvastatin Calcium 80 Mg Tablet) 80 mg PO BEDTIME [facility]; Protocol Last Admin: 04/08/24 20:43 Dose: 80 mg Documented By: STEPHANIE Calcium Carbonate (Calcium Carbonate 750 Mg Tab.Chew) 750 mg PO Q4H PRN PRN Reason: Heartburn Carvedilol (Carvedilol 6.25 Mg Tablet) 6.25 mg PO BID [facility]; Protocol Last Admin: 04/09/24 08:12 Dose: 6.25 mg Documented By: MAYCOL Celecoxib (Celecoxib 200 Mg Capsule) 200 mg PO BID PRN PRN Reason: Pain, Mild (Pain Scale 1-3) Docusate Sodium (Docusate Sodium 100 Mg Capsule) 100 mg PO BEDTIME [facility] Last Admin: 04/08/24 20:42 Dose: 100 mg Documented By: STEPHANIE Empagliflozin (Empagliflozin 10 Mg Tablet) 10 mg PO DAILY [facility] Last Admin: 04/09/24 08:12 Dose: 10 mg Documented By: MAYCOL Enoxaparin Sodium (Enoxaparin Sodium 40 Mg/0.4 Ml Syringe) 40 mg SUBCUT Q24H [facility] Last Admin: 04/08/24 15:22 Dose: 40 mg Documented By: EUGENIA Fluticasone Propionate (Fluticasone Propionate Nasal 16 Gm [place]) 1 spray NOSTRIL-B DAILY PRN PRN Reason: Congestion Fluticasone/Umeclidinium/Vilanterol (Fluticasone/Umeclidinium/Vilanterol 100/62.5/25 Blst.W.Dev) 1 puff INHALE RDAILY [facility] Last Admin: 04/09/24 08:13 Dose: 1 puff Documented By: ZACHERY Glucose (Glucose Gel 15 Gm Gel..Gram.) 15 gm PO Q15M PRN; Protocol PRN Reason: per Hypoglycemia Standing Ord. Guaifenesin/Dextromethorphan (Guaifenesin Dm 200/20/10 Ml 10 Ml Syrup) 10 ml PO Q4H PRN PRN Reason: Cough Last Admin: 04/09/24 09:09 Dose: 10 ml Documented By: MAYCOL Dextrose (D10) 250 mls @ 750 mls/hr IV Q15M PRN; Protocol PRN Reason: per Hypoglycemia Standing Ord. Insulin Glargine (Insulin Glargine,Hum.Rec.Anlog 100 Unit/Ml 10 Ml Vial) 35 unit SUBCUT BEDTIME [facility] Last Admin: 04/08/24 20:44 Dose: 35 unit Documented By: STEPHNAIE Insulin Glargine (Insulin Glargine,Hum.Rec.Anlog 100 Unit/Ml 10 Ml Vial) 35 unit SUBCUT DAILY [facility] Last Admin: 04/09/24 08:15 Dose: 35 unit Documented By: MAYCOL Insulin Human Lispro (Insulin Lispro 100 Unit/Ml 3 Ml Vial) 0 unit SUBCUT QIDACHS [facility]; Protocol Last Admin: 04/09/24 11:40 Dose: 4 unit Documented By: MAYCOL Levothyroxine Sodium (Levothyroxine Sodium 112 Mcg Tablet) 112 mcg PO DAILY@0600 [facility] Last Admin: 04/09/24 06:06 Dose: 112 mcg Documented By: STEPHANIE Loratadine (Loratadine 10 Mg Tablet) 10 mg PO DAILY PRN PRN Reason: allergies Magnesium Hydroxide (Milk Of Magnesia 30 Ml Oral.Susp) 30 ml PO DAILY PRN PRN Reason: Constipation Melatonin (Melatonin 3 Mg Tablet) 6 mg PO BEDTIME PRN PRN Reason: Insomnia Methocarbamol (Methocarbamol 750 Mg Tablet) 750 mg PO Q8H PRN PRN Reason: neuropathy Last Admin: 04/08/24 00:15 Dose: 750 mg Documented By: TONI Methylprednisolone Sodium Succinate (Methylprednisolone Sod Succ 40 Mg/Ml Vial) 40 mg IVPUSH Q12H [facility] Last Admin: 04/09/24 08:12 Dose: 40 mg Documented By: MAYCOL Montelukast Sodium (Montelukast Sodium 10 Mg Tablet) 10 mg PO BEDTIME [facility] Last Admin: 04/08/24 20:44 Dose: 10 mg Documented By: STEPHANIE Nicotine (Nicotine 14 Mg Patch.Td24) 14 mg TRANSDERMA DAILY [facility] Last Admin: 04/09/24 08:13 Dose: 14 mg Documented By: MAYCOL Non-Formulary Medication (Dulaglutide [Trulicity]) 1.5 mg SUBCUT FR [facility] Non-Formulary Medication (Dupilumab [Dupixent Pen]) 300 mg SUBCUT Q14D [facility] Omeprazole (Omeprazole 20 Mg Capsule.Dr) 20 mg PO BID@0630,1630 [facility] Last Admin: 04/09/24 05:30 Dose: 20 mg Documented By: STEPHANIE Ondansetron HCl (Ondansetron Hcl 4 Mg/2 Ml Vial) 4 mg IVPUSH Q8H PRN PRN Reason: Nausea and Vomiting Oxycodone HCl (Oxycodone Hcl Immed Release 5 Mg Tablet) 7.5 mg PO Q6H [facility] Last Admin: 04/09/24 05:31 Dose: 7.5 mg Documented By: STEPHANIE Pregabalin (Pregabalin 100 Mg Capsule) 100 mg PO TID [facility] Last Admin: 04/09/24 08:12 Dose: 100 mg Documented By: MAYCOL Pyridoxine HCl (Pyridoxine Hcl (Vitamin B6) 50 Mg Tablet) 50 mg PO BEDTIME [facility] Last Admin: 04/08/24 21:39 Dose: Not Given Documented By: STEPHANIE Non-Admin Reason: Patient Refused Roflumilast (Roflumilast 500 Mcg Tablet) 500 mcg PO DAILY [facility] Last Admin: 04/09/24 08:12 Dose: 500 mcg Documented By: MAYCOL Senna (Sennosides 8.6 Mg Tablet) 8.6 mg PO BID [facility] Last Admin: 04/09/24 08:12 Dose: 8.6 mg Documented By: MAYCOL Sodium Chloride (0.9 % Sodium Chloride Flush 3 Ml Syringe) 3 ml IVFLUSH QSHIFT [facility] Last Admin: 04/09/24 08:15 Dose: 3 ml Documented By: MAYCOL Vitamin D (Cholecalciferol (Vitamin D3) 25 Mcg Tablet) 50 mcg PO DAILY [facility] Last Admin: 04/09/24 08:13 Dose: Not Given Documented By: MAYCOL Non-Admin Reason: Patient Refused Labs 04/07/24 10:24 04/07/24 14:12 Labs: Laboratory Results - last 24 hr 04/08/24 04/08/24 04/09/24 16:14 20:18 07:17 POC Glucose 196 H 205 H 181 H 04/09/24 11:10 POC Glucose 218 H Assessment and Plan (1) RSV infection: Status: Acute (2) Acute exacerbation of chronic obstructive pulmonary disease: Status: Acute Plan 63-year-old female with a PMH significant for?CAD, insulin-dependent type 2 diabetes COPD not on home O2, HTN, hypothyroidism, GERD, and gout who presents to the ED with?cough, SOB, and hypoxia at home. Pt will be admitted to the hospital for treatment and further evaluation of acute hypoxic respiratory failure in the setting of acute COPD exacerbation from RSV infection. Acute hypoxic respiratory failure in the setting of COPD exacerbation from RSV infection has sob with minimal excersion SOBsimilar, cough, RSV+, desatting to mid 80s on RA CXR negative for pneumonia, no indication for antibiotics at this time Solu-Medrol DuoNebs, and guaifenesin,Titrate supplemental O2 >92, wean as tolerated Monitor respiratory status CAD Continue aspirin, statin HTN Continue carvedilol Insulin-dependent type 2 diabetes Sliding-scale insulin, Lantus Diabetic diet Peripheral neuropathy Continue gabapentin Gout Continue allopurinol Full Code DVT Prophylaxis: Lovenox ongoing need for hospitalization for treatment of?acute hypoxic respiratory failure in the setting of acute COPD exacerbation from RSV infection. Pt require administration of IV steroids, DuoNebs, and supplemental oxygen. Quality Stroke Does the patient have a stroke diagnosis?: No VTE Prior VTE?: No VTE Risk Level:: Medical - moderate - high VTE Device Contraindication: Treatment Not Indicated VTE Drug Contraindication: N/A - Med Ordered
[2024-04-09] MEDS: Enoxaparin Sodium 40 MG/0.4 ML SYRINGE SUBCUT (14:54)
[2024-04-09 16:15] LABS: Glucose, Whole Blood 223 mg/dL (60-115)
[2024-04-09 19:45] LABS: Glucose, Whole Blood 225 mg/dL (60-115)
[2024-04-09] MEDS: Docusate Sodium 100 MG CAPSULE PO (20:02)
[2024-04-09] MEDS: Montelukast Sodium 10 MG TABLET PO (20:03)
[2024-04-09] MEDS: Aspirin Enteric Coated 81 MG TABLET.DR PO (20:03)
[2024-04-09] MEDS: Atorvastatin Calcium 80 MG TABLET PO (20:04)
[2024-04-09] MEDS: Milk of Magnesia 30 ML ORAL.SUSP PO (22:00)
[2024-04-10] VITALS (9 sets, daily range): BP systolic 138–160; BP diastolic 70–80; PULSE 76–91; RESP 12–20; TEMP 36.1–36.8; O2SAT 90–94
[2024-04-10] MEDS: oxyCODONE HCl Immed Release 5 MG TABLET 7.5 MG PO ×4 (00:32→18:29)
[2024-04-10] MEDS: Acetaminophen 325 MG TABLET PO ×4 (00:33→18:28)
[2024-04-10] MEDS: Albuterol/Iprat 2.5/0.5MG 3 ML AMPUL.NEB INHALE ×5 (00:54→19:59)
[2024-04-10] MEDS: Levothyroxine Sodium 112 MCG TABLET PO (06:10)
[2024-04-10] MEDS: Omeprazole 20 MG CAPSULE.DR PO ×2 (06:35→16:51)
[2024-04-10] MEDS: methylPREDNISolone Sod Succ 40 MG/ML VIAL IVPUSH ×2 (07:40→21:38)
[2024-04-10] MEDS: Roflumilast 500 MCG TABLET PO (07:41)
[2024-04-10] MEDS: Pregabalin 100 MG CAPSULE PO ×3 (07:41→21:40)
[2024-04-10] MEDS: guaiFENesin DM 200/20/10 ML 10 ML SYRUP PO ×2 (07:41→21:52)
[2024-04-10] MEDS: Empagliflozin 10 MG TABLET PO (07:41)
[2024-04-10] MEDS: Nicotine 14 MG PATCH.TD24 TRANSDERMA (07:41)
[2024-04-10] MEDS: carvediloL 6.25 MG TABLET PO ×2 (07:41→21:39)
[2024-04-10] MEDS: allopurinoL 100 MG TABLET PO (07:41)
[2024-04-10] MEDS: Sennosides 8.6 MG TABLET PO ×2 (07:41→21:39)
[2024-04-10] MEDS: Insulin Lispro 100 UNIT/ML 3 ML VIAL SUBCUT ×4 (07:42→21:39)
[2024-04-10] MEDS: Insulin Glargine,Hum.rec.anlog 100 UNIT/ML 10 ML VIAL 35 UNIT SUBCUT ×2 (07:43→21:38)
[2024-04-10] MEDS: 0.9 % Sodium Chloride Flush 3 ML SYRINGE IVFLUSH ×3 (07:43→21:40)
[2024-04-10 07:44] LABS: Glucose, Whole Blood 156 mg/dL (60-115)
[2024-04-10] MEDS: Fluticasone/Umeclidinium/Vilanterol 100/62.5/25 BLST.W.DEV 1 PUFF INHALE (07:57)
[2024-04-10] MEDS: Lactulose 20 GM/30 ML SOLUTION PO (09:53)
--- NOTE | 2024-04-10 10:35 | HO.PM.IMPN ---
Subjective Subjective Date of Service: 04/10/24 [facility] sob with minimal excersion cough dry constipation Physical Exam Vital Signs: Vital Signs: Last Vital Signs Temp 97.0 F 04/10/24 08:08 Pulse 79 04/10/24 08:08 Resp 20 04/10/24 08:08 BP 138/80 04/10/24 08:08 Pulse Ox 92 04/10/24 08:08 O2 Del Method Nasal Cannula 04/10/24 08:08 O2 Flow Rate 3 04/10/24 08:08 BMI result Body Mass Index 29.3 Appearance: Alert.? Oriented X3 . cvs: rrr, [id number]. res: clear to auscultation ,no rhonchii or wheezing abd: no rebound or guarding ,nt, bs present. ext pulses present , no cyanosis. neuro: axo3 , nonfocal. Objective Data Active Medications Acetaminophen (Acetaminophen 325 Mg Tablet) 650 mg PO Q6H PRN PRN Reason: Pain, Mild 1-3,fever,headache Acetaminophen (Acetaminophen 325 Mg Tablet) 325 mg PO Q6H [facility] Last Admin: 04/10/24 06:34 Dose: 325 mg Documented By: STEPHANIE Albuterol/Ipratropium (Albuterol/Iprat 2.5/0.5mg 3 Ml Ampul.Neb) 3 ml INHALE RQ4H WHILE AWAKE [facility] Last Admin: 04/10/24 07:37 Dose: 3 ml Documented By: SHOAIB Albuterol/Ipratropium (Albuterol/Iprat 2.5/0.5mg 3 Ml Ampul.Neb) 3 ml INHALE RQ4H WHILE AWAKE PRN PRN Reason: Shortness of Breath/Wheezing Last Admin: 04/10/24 00:54 Dose: 3 ml Documented By: FERNANDEZ Allopurinol (Allopurinol 100 Mg Tablet) 100 mg PO DAILY [facility] Last Admin: 04/10/24 07:41 Dose: 100 mg Documented By: MAYCOL Aspirin (Aspirin Enteric Coated 81 Mg Tablet.) 81 mg PO BEDTIME [facility] Last Admin: 04/09/24 20:03 Dose: 81 mg Documented By: STEPHANIE Atorvastatin Calcium (Atorvastatin Calcium 80 Mg Tablet) 80 mg PO BEDTIME [facility]; Protocol Last Admin: 04/09/24 20:04 Dose: 80 mg Documented By: STEPHANIE Calcium Carbonate (Calcium Carbonate 750 Mg Tab.Chew) 750 mg PO Q4H PRN PRN Reason: Heartburn Carvedilol (Carvedilol 6.25 Mg Tablet) 6.25 mg PO BID [facility]; Protocol Last Admin: 04/10/24 07:41 Dose: 6.25 mg Documented By: MAYCOL Celecoxib (Celecoxib 200 Mg Capsule) 200 mg PO BID PRN PRN Reason: Pain, Mild (Pain Scale 1-3) Docusate Sodium (Docusate Sodium 100 Mg Capsule) 100 mg PO BEDTIME [facility] Last Admin: 04/09/24 20:02 Dose: 100 mg Documented By: STEPHANIE Empagliflozin (Empagliflozin 10 Mg Tablet) 10 mg PO DAILY [facility] Last Admin: 04/10/24 07:41 Dose: 10 mg Documented By: MAYCOL Enoxaparin Sodium (Enoxaparin Sodium 40 Mg/0.4 Ml Syringe) 40 mg SUBCUT Q24H [facility] Last Admin: 04/09/24 14:54 Dose: 40 mg Documented By: MAYCOL Fluticasone Propionate (Fluticasone Propionate Nasal 16 Gm [place]) 1 spray NOSTRIL-B DAILY PRN PRN Reason: Congestion Fluticasone/Umeclidinium/Vilanterol (Fluticasone/Umeclidinium/Vilanterol 100/62.5/25 Blst.W.Dev) 1 puff INHALE RDAILY [facility] Last Admin: 04/10/24 07:57 Dose: 1 puff Documented By: SHOAIB Glucose (Glucose Gel 15 Gm Gel..Gram.) 15 gm PO Q15M PRN; Protocol PRN Reason: per Hypoglycemia Standing Ord. Guaifenesin/Dextromethorphan (Guaifenesin Dm 200/20/10 Ml 10 Ml Syrup) 10 ml PO Q4H PRN PRN Reason: Cough Last Admin: 04/10/24 07:41 Dose: 10 ml Documented By: MAYCOL Dextrose (D10) 250 mls @ 750 mls/hr IV Q15M PRN; Protocol PRN Reason: per Hypoglycemia Standing Ord. Insulin Glargine (Insulin Glargine,Hum.Rec.Anlog 100 Unit/Ml 10 Ml Vial) 35 unit SUBCUT BEDTIME [facility] Last Admin: 04/09/24 20:06 Dose: 35 unit Documented By: STEPHANIE Insulin Glargine (Insulin Glargine,Hum.Rec.Anlog 100 Unit/Ml 10 Ml Vial) 35 unit SUBCUT DAILY [facility] Last Admin: 04/10/24 07:43 Dose: 35 unit Documented By: MAYCOL Insulin Human Lispro (Insulin Lispro 100 Unit/Ml 3 Ml Vial) 0 unit SUBCUT QIDACHS [facility]; Protocol Last Admin: 04/10/24 07:42 Dose: 2 unit Documented By: MAYCOL Levothyroxine Sodium (Levothyroxine Sodium 112 Mcg Tablet) 112 mcg PO DAILY@0600 [facility] Last Admin: 04/10/24 06:10 Dose: 112 mcg Documented By: STEPHANIE Loratadine (Loratadine 10 Mg Tablet) 10 mg PO DAILY PRN PRN Reason: allergies Magnesium Hydroxide (Milk Of Magnesia 30 Ml Oral.Susp) 30 ml PO DAILY PRN PRN Reason: Constipation Last Admin: 04/09/24 22:00 Dose: 30 ml Documented By: STEPHANIE Melatonin (Melatonin 3 Mg Tablet) 6 mg PO BEDTIME PRN PRN Reason: Insomnia Methocarbamol (Methocarbamol 750 Mg Tablet) 750 mg PO Q8H PRN PRN Reason: neuropathy Last Admin: 04/08/24 00:15 Dose: 750 mg Documented By: TONI Methylprednisolone Sodium Succinate (Methylprednisolone Sod Succ 40 Mg/Ml Vial) 40 mg IVPUSH Q12H [facility] Last Admin: 04/10/24 07:40 Dose: 40 mg Documented By: MAYCOL Montelukast Sodium (Montelukast Sodium 10 Mg Tablet) 10 mg PO BEDTIME [facility] Last Admin: 04/09/24 20:03 Dose: 10 mg Documented By: STEPHANIE Nicotine (Nicotine 14 Mg Patch.Td24) 14 mg TRANSDERMA DAILY [facility] Last Admin: 04/10/24 07:41 Dose: 14 mg Documented By: MAYCOL Non-Formulary Medication (Dulaglutide [Trulicity]) 1.5 mg SUBCUT FR [facility] Non-Formulary Medication (Dupilumab [Dupixent Pen]) 300 mg SUBCUT Q14D [facility] Omeprazole (Omeprazole 20 Mg Capsule.Dr) 20 mg PO BID@0630,1630 [facility] Last Admin: 04/10/24 06:35 Dose: 20 mg Documented By: STEPHANIE Ondansetron HCl (Ondansetron Hcl 4 Mg/2 Ml Vial) 4 mg IVPUSH Q8H PRN PRN Reason: Nausea and Vomiting Oxycodone HCl (Oxycodone Hcl Immed Release 5 Mg Tablet) 7.5 mg PO Q6H [facility] Last Admin: 04/10/24 06:34 Dose: 7.5 mg Documented By: STEPHANIE Pregabalin (Pregabalin 100 Mg Capsule) 100 mg PO TID [facility] Last Admin: 04/10/24 07:41 Dose: 100 mg Documented By: MAYCOL Pyridoxine HCl (Pyridoxine Hcl (Vitamin B6) 50 Mg Tablet) 50 mg PO BEDTIME [facility] Last Admin: 04/09/24 20:41 Dose: Not Given Documented By: STEPHANIE Non-Admin Reason: Patient Refused Roflumilast (Roflumilast 500 Mcg Tablet) 500 mcg PO DAILY [facility] Last Admin: 04/10/24 07:41 Dose: 500 mcg Documented By: MAYCOL Senna (Sennosides 8.6 Mg Tablet) 8.6 mg PO BID [facility] Last Admin: 04/10/24 07:41 Dose: 8.6 mg Documented By: MAYCOL Sodium Biphosphate/Sodium Phosphate (Sodium Phosphate,Tift-Dibasic 133 Ml Enema) 133 ml ID ONCE PRN PRN Reason: Constipation Sodium Chloride (0.9 % Sodium Chloride Flush 3 Ml Syringe) 3 ml IVFLUSH QSHIFT [facility] Last Admin: 04/10/24 07:43 Dose: 3 ml Documented By: MAYCOL Vitamin D (Cholecalciferol (Vitamin D3) 25 Mcg Tablet) 50 mcg PO DAILY [facility] Last Admin: 04/10/24 07:28 Dose: Not Given Documented By: MAYCOL Non-Admin Reason: Patient Refused Labs 04/07/24 10:24 04/07/24 14:12 Labs: Laboratory Results - last 24 hr 04/09/24 04/09/24 04/09/24 11:10 16:07 19:40 POC Glucose 218 H 223 H 225 H 04/10/24 07:28 POC Glucose 156 H Assessment and Plan (1) RSV infection: Status: Acute (2) Acute exacerbation of chronic obstructive pulmonary disease: Status: Acute Plan 63-year-old female with a PMH significant for?CAD, insulin-dependent type 2 diabetes COPD not on home O2, HTN, hypothyroidism, GERD, and gout who presents to the ED with?cough, SOB, and hypoxia at home. Pt will be admitted to the hospital for treatment and further evaluation of acute hypoxic respiratory failure in the setting of acute COPD exacerbation from RSV infection. Acute hypoxic respiratory failure in the setting of COPD exacerbation from RSV infection has sob with minimal excersion SOBsimilar, cough, RSV+, desatting to mid 80s on RA CXR negative for pneumonia, no indication for antibiotics at this time Solu-Medrol DuoNebs, and guaifenesin,Titrate supplemental O2 >92, wean as tolerated Monitor respiratory status CAD Continue aspirin, statin HTN Continue carvedilol Insulin-dependent type 2 diabetes Sliding-scale insulin, Lantus Diabetic diet Peripheral neuropathy Continue gabapentin Gout Continue allopurinol constipation - continue current bowel regimen added prn enema Full Code DVT Prophylaxis: Lovenox ongoing need for hospitalization for treatment of?acute hypoxic respiratory failure in the setting of acute COPD exacerbation from RSV infection. Pt require administration of IV steroids, DuoNebs, and supplemental oxygen. Quality Stroke Does the patient have a stroke diagnosis?: No VTE Prior VTE?: No VTE Risk Level:: Medical - moderate - high VTE Device Contraindication: Treatment Not Indicated VTE Drug Contraindication: N/A - Med Ordered
[2024-04-10 11:34] LABS: Glucose, Whole Blood 185 mg/dL (60-115)
[2024-04-10] MEDS: Enoxaparin Sodium 40 MG/0.4 ML SYRINGE SUBCUT (14:43)
[2024-04-10 16:30] LABS: Glucose, Whole Blood 212 mg/dL (60-115)
[2024-04-10 20:37] LABS: Glucose, Whole Blood 243 mg/dL (60-115)
[2024-04-10] MEDS: Docusate Sodium 100 MG CAPSULE PO (21:39)
[2024-04-10] MEDS: Montelukast Sodium 10 MG TABLET PO (21:39)
[2024-04-10] MEDS: Aspirin Enteric Coated 81 MG TABLET.DR PO (21:39)
[2024-04-10] MEDS: Atorvastatin Calcium 80 MG TABLET PO (21:40)
[2024-04-11] VITALS (12 sets, daily range): BP systolic 132–151; BP diastolic 70–83; PULSE 77–107; RESP 16–20; TEMP 36–36.1; O2SAT 73–95
[2024-04-11] MEDS: Acetaminophen 325 MG TABLET PO ×5 (00:33→23:20)
[2024-04-11] MEDS: oxyCODONE HCl Immed Release 5 MG TABLET 7.5 MG PO ×5 (00:34→23:23)
[2024-04-11] MEDS: Albuterol/Iprat 2.5/0.5MG 3 ML AMPUL.NEB INHALE ×5 (02:35→19:52)
[2024-04-11] MEDS: Omeprazole 20 MG CAPSULE.DR PO ×2 (05:39→16:38)
[2024-04-11] MEDS: Levothyroxine Sodium 112 MCG TABLET PO (05:39)
[2024-04-11] MEDS: Fluticasone/Umeclidinium/Vilanterol 100/62.5/25 BLST.W.DEV 1 PUFF INHALE (07:51)
[2024-04-11] MEDS: Sennosides 8.6 MG TABLET PO ×2 (08:02→19:50)
[2024-04-11] MEDS: Nicotine 14 MG PATCH.TD24 TRANSDERMA (08:02)
[2024-04-11] MEDS: allopurinoL 100 MG TABLET PO (08:02)
[2024-04-11] MEDS: Insulin Glargine,Hum.rec.anlog 100 UNIT/ML 10 ML VIAL 35 UNIT SUBCUT ×2 (08:03→19:50)
[2024-04-11] MEDS: Roflumilast 500 MCG TABLET PO (08:03)
[2024-04-11] MEDS: Pregabalin 100 MG CAPSULE PO ×3 (08:03→19:49)
[2024-04-11] MEDS: Empagliflozin 10 MG TABLET PO (08:04)
[2024-04-11] MEDS: carvediloL 6.25 MG TABLET PO ×2 (08:04→19:48)
[2024-04-11] MEDS: methylPREDNISolone Sod Succ 40 MG/ML VIAL IVPUSH (08:04)
[2024-04-11] MEDS: 0.9 % Sodium Chloride Flush 3 ML SYRINGE IVFLUSH ×3 (08:04→19:50)
[2024-04-11 08:14] LABS: Glucose, Whole Blood 146 mg/dL (60-115)
[2024-04-11 11:40] LABS: Glucose, Whole Blood 235 mg/dL (60-115)
[2024-04-11] MEDS: Insulin Lispro 100 UNIT/ML 3 ML VIAL SUBCUT ×2 (11:52→16:38)
--- NOTE | 2024-04-11 12:08 | P.DS_ITS ---
DS: Providers Provider Date of Service: 04/11/24 Date of admission: 04/07/24 15:18 Date of discharge: 04/11/24 Primary care physician: Bobby David MD Attending physician on discharge: Dhaval Hancock Discharging clinician: Dhaval Hancock DS: Diagnosis Discharge Diagnosis (1) RSV infection: Status: Acute (2) Acute exacerbation of chronic obstructive pulmonary disease: Status: Acute DS: Summary Hospital Course Hospital Course: date of service and discharge : 04/12/24. HPI:63-year-old female with a PMH significant for?CAD, insulin-dependent type 2 diabetes COPD not on home O2, HTN, hypothyroidism, GERD, and gout who presents to the ED with?cough, SOB, and hypoxia at home. Pt states has been experiencing shortness of breath, difficulty breathing, and cough for approximately 1 week. Cough initially productive but has been dry for the past 2 days. Presented to [facility] on Thursday and prescribed a course of doxycycline and prednisone. Has tested negative for COVID x3 times. Pt also complains of right shoulder pain radiating to right ribs associated with cough and inspiration. Has been feeling weak and with reduced p.o. intake. This morning pt awoke with difficulty breathing and noted on her home pulse ox that her oxygen saturation was 86%. No fever or chills. Denies nausea, vomiting, diarrhea, abdominal pa in. Currently still smokes approximately half a pack daily. In the ED pt was tachypneic up to 28 in desatting as low as 84% on RA. Labs were significant for testing positive for RSV and leukocytosis of 12.0, otherwise grossly unremarkable and around baseline for pt. No significant electrolyte abnormalities. Renal function WNL. AST and ALT mildly elevated at 38 and 34 respectively. CXR negative for acute cardiopulmonary disease. EKG demonstrated normal sinus rhythm evidence of significant ischemic changes. Pt was treated with DuoNebs and Solu-Medrol. Pt will be admitted to the hospital for treatment and further evaluation of acute hypoxic respiratory failure in the setting of acute COPD exacerbation from RSV infection. Hospital course: 63-year-old female with a PMH significant for?CAD, insulin-dependent type 2 diabetes COPD not on home O2, HTN, hypothyroidism, GERD, and gout who presents to the ED with?cough, SOB, and hypoxia at home. Pt will be admitted to the hospital for treatment and further evaluation of acute hypoxic respiratory failure in the setting of acute COPD exacerbation from RSV infection-started on nebs, steroids, oxygen support: Patient seems to be improved significantly. Patient will be going home ,she has prednisone at home . plan: 63-year-old female with a PMH significant for?CAD, insulin-dependent type 2 diabetes COPD not on home O2, HTN, hypothyroidism, GERD, and gout who presents to the ED with?cough, SOB, and hypoxia at home. Pt will be admitted to the hospital for treatment and further evaluation of acute hypoxic respiratory failure in the setting of acute COPD exacerbation from RSV infection-started on nebs, steroids, oxygen support: Patient seems to be improved significantly. Patient will be going home ,she has prednisone at home . plan: patient going home , continue home prednisone 40 mgx3 days and home oxygen. pt and home oxygen eval pending Above management discussed with the patient detail length she understand in agreement with the above plan, time spent 40 minute. Time Attestation Total time managing care of this patient today: 40 mintues. Discharge Coordination Time (in mins): 40 min Quality: Safe Use of Opioids Does Pt have an Active Cancer Diagnosis on the Problem List?: No Quality: Stroke Does the patient have a stroke diagnosis?: No Physical Exam Vital Signs: Vital Signs: Last Vital Signs Temp 96.8 F 04/11/24 08:00 Pulse 95 04/11/24 11:14 Resp 18 04/11/24 11:14 BP 150/70 H 04/11/24 08:00 Pulse Ox 94 04/11/24 08:00 O2 Del Method Nasal Cannula 04/11/24 08:00 O2 Flow Rate 3.0 04/11/24 08:00 BMI result Body Mass Index 29.3 Appearance: Alert.? Oriented X3.? cvs: rrr, [id number]. res: clear to auscultation ,no rhonchii or wheezing abd: no rebound or guarding ,nt, bs present. ext pulses present , no cyanosis. neuro: axo3 , nonfocal. DS: Data Data Completed and Pending Labs on day of discharge: Laboratory Results - last 24 hr 04/10/24 04/10/24 04/11/24 16:23 20:20 08:07 POC Glucose 212 H 243 H 146 H 04/11/24 11:27 POC Glucose 235 H Imaging Chest x-ray: Radiologist's impression: ITS Impressions Chest X-Ray 04/07/24 09:37 IMPRESSION: Unremarkable chest examination. Electronically signed by: Roe Vega MD 04/07/2024 09:56 AM [facility] Discharge Plan Discharge Anticipated Discharge Date/Time: 04/11/24 11:55 Patient Disposition: Home Health Service Discharge Diagnosis: Acute hypoxic respiratory failure in the setting of COPD exacerbation from RSV infection Referrals: Amelia PLAZA [Other] Name,MD Bobby [Primary Care Provider] - 1 Week Discharge Medications: New prednisone 20 mg tablet 40 mg PO DAILY Qty: 6 0RF Continued cholecalciferol (vitamin D3) [Vitamin D3] 50 mcg (2,000 unit) capsule 50 mcg PO DAILY Qty: 90 11RF albuterol sulfate [Ventolin HFA] 90 mcg/actuation HFA aerosol inhaler 2 puff inhalation Q4-6H PRN (Reason: for wheezing) Qty: 18 11RF roflumilast 500 mcg tablet 500 mcg PO DAILY Qty: 30 11RF Dupixent Pen 300 mg/2 mL pen injector See Rx Instructions subcut Q2W 28 Days Qty: 4 11RF Rx Instructions: loading dose: 600mg SC x 1, then 300mg SC every 2 weeks prednisone 5 mg tablet 5 mg PO DAILY Qty: 30 3RF Trelegy Ellipta 100-62.5-25 mcg blister with device 1 ea inhalation DAILY Qty: 1 0RF docusate sodium 100 mg capsule 1 cap PO BEDTIME ipratropium-albuterol 0.5 mg-3 mg(2.5 mg base)/3 mL solution for nebulization 3 ml inhalation QID PRN (Reason: Shortness Of Breath Or Wheezing) sennosides [senna] 8.6 mg Tablet 8.6 mg PO BID insulin aspart U-100 [Novolog FlexPen U-100 Insulin] 100 unit/mL (3 mL) insulin pen See Protocol subcut TIDAC Protocol: Insulin Correction Scale Less than or equal to 110 ---- Give (units): 0 111 to 150 Give (units): 0 151 to 200 Give (units): 2 201 to 250 Give (units): 4 251 to 300 Give (units): 6 301 to 350 Give (units): 8 Greater than 350 Give (units): 10 Call MD if Blood Glucose > : 350 lidocaine 5 % adhesive patch,medicated 1 patch topical DAILY PRN (Reason: pain) insulin glargine [Lantus Solostar U-100 Insulin] 100 unit/mL (3 mL) insulin pen 35 unit SUBCUT BID Rx Instructions: PER PATIENT, MAY REQUIRE HIGHER DOSES WHEN ON STEROIDS pyridoxine (vitamin B6) 50 mg tablet 50 mg PO BEDTIME levothyroxine 112 mcg tablet 112 mcg PO DAILY@0600 pregabalin 100 mg capsule 100 mg PO TID Combivent Respimat 20-100 mcg/actuation mist 2 puff inhalation BID Rx Instructions: space evenly during waking hours omeprazole 20 mg capsule,delayed release(DR/EC) 20 mg PO BID@0630,1630 aspirin 81 mg tablet,delayed release (DR/EC) 81 mg PO BEDTIME carvedilol 6.25 mg tablet 6.25 mg PO BID atorvastatin 80 mg tablet 80 mg PO BEDTIME Protocol: Hold for SBP< HOLD for SBP < : 90 montelukast 10 mg tablet 10 mg PO BEDTIME cetirizine 10 mg tablet 10 mg PO DAILY PRN (Reason: allergies) fluticasone propionate 50 mcg/actuation spray,suspension 1 spray intranasal DAILY PRN (Reason: Congestion) (DME) lancets [TRUEplus Lancets] 33 gauge misc See Rx Instructions .ROUTE TID Qty: 100 Rx Instructions: As directed (DME) FreeStyle Lite Strips Strip See Rx Instructions .ROUTE TID Qty: 10 Rx Instructions: As directed naloxone 4 mg/actuation spray,non-aerosol 1 spray intranasal ONCE PRN (Reason: Opioid Overdose) oxycodone-acetaminophen 7.5-325 mg tablet 1 tab PO Q6H PRN (Reason: severe pain) Trulicity 1.5 mg/0.5 mL pen injector 1.5 mg subcut FR prednisone 20 mg tablet See Rx Instructions PO DAILY 10 Days Qty: 15 0RF Rx Instructions: Take 2 tabs daily x 4 days, then 1 tablet daily x 4 days, then 1/2 tablet x 4 days started on 04/04/23 nicotine 21 mg/24 hr patch 24 hour 1 patch transdermal DAILY 28 Days Qty: 28 6RF methocarbamol 750 mg tablet 750 mg PO Q8H PRN (Reason: neuropathy) (DME) nebulizers Misc See Rx Instructions .Route Rx Instructions: As directed (DME) HANK Elbow Brace Misc See Rx Instructions .Route Qty: 1 0RF Rx Instructions: As directed Jardiance 10 mg tablet 10 mg PO DAILY allopurinol 100 mg tablet 100 mg PO DAILY 90 Days Qty: 90 1RF Held celecoxib [Celebrex] 200 mg capsule 200 mg PO BID PRN (Reason: pain) Qty: 60 0RF Hold Instructions: Resume on 04/20/24. Rx Instructions: Take it with food and full glass of water. Avoid other NSAIDs. Discontinued doxycycline hyclate 100 mg capsule 100 mg PO BID Qty: 10 0RF fluconazole [Diflucan] 100 mg tablet 100 mg PO DAILY PRN (Reason: Flares) Discharge Orders: Discharge Order (Routine); Ordered 04/12/24 Ordered By: Dhaval Hancock Diet: Advance to usual diet Activity on Discharge: As tolerated Stand Alone Forms: Patient Portal Discharge page Print Language: Indonesian Care Plan Goals: 63-year-old female with a PMH significant for?CAD, insulin-dependent type 2 diabetes COPD not on home O2, HTN, hypothyroidism, GERD, and gout who presents to the ED with?cough, SOB, and hypoxia at home. Pt will be admitted to the hospital for treatment and further evaluation of acute hypoxic respiratory failure in the setting of acute COPD exacerbation from RSV infection-started on nebs, steroids, oxygen support: Patient seems to be improved significantly. Patient will be going home ,she has prednisone at home . Health Concerns: patient going home , continue home prednisone 40 mgx3 days and home oxygen. pt and home oxygen eval pending Plan of Treatment: as above. Assessment: as above. Discharge Date/Time: 04/12/24 10:20
--- NOTE | 2024-04-11 12:13 | W.MHC.F2F ---
Service Date Service Date: 04/11/24 Encounter Date of encounter: 04/11/24 Encounter: copd Reasons for Services Signs and symptoms assessed: sob or new symptoms Reason for group home: medication management, medication treatment and teach disease management Reason for physical therapy: home safety and mobility, therapeutic exercises, restore joint function, gait/transfer training, assess need for DME, ADL training, energy conservation and other MD Overseeing Care: Bobby Name Homebound: Leaving the home is medically contraindicated at this time without the asist of a device and/or another person due th the listed conditions above and below. Reason homebound: weakness related to hospital stay Homebound supporting statement: Patient is generalised weak post hospitlisation and need help with going to appointments and labs draws as well as PT, home oxygen eval pending. Certification: Based on the above findings, I certify that this patient is confined to the home and needs intermittent group home care, physical therapy and/or speech therapy, or continues to need occupational therapy. The patient is under my care, and I have initiated the establishment of the plan of care. The patient will be followed by a physician who will periodically review the plan of care. Time Spent With Patient Time: Total time managing care of this patient today ____ minutes.
--- NOTE | 2024-04-11 13:14 | HO.PM.IMPN ---
Subjective Subjective Date of Service: 04/11/24 [facility] sob with minimal excersion ,still hypoxic requiring 6 liter oxygen cough dry constipation Physical Exam Vital Signs: Vital Signs: Last Vital Signs Temp 96.8 F 04/11/24 08:00 Pulse 95 04/11/24 11:14 Resp 18 04/11/24 11:14 BP 150/70 H 04/11/24 08:00 Pulse Ox 94 04/11/24 08:00 O2 Del Method Nasal Cannula 04/11/24 08:00 O2 Flow Rate 3.0 04/11/24 08:00 BMI result Body Mass Index 29.3 Appearance: Alert.? Oriented X3 . cvs: rrr, [id number]. res:air entry fair ,has faint wheezing abd: no rebound or guarding ,nt, bs present. ext pulses present , no cyanosis. neuro: axo3 , nonfocal. Objective Data Active Medications Acetaminophen (Acetaminophen 325 Mg Tablet) 650 mg PO Q6H PRN PRN Reason: Pain, Mild 1-3,fever,headache Acetaminophen (Acetaminophen 325 Mg Tablet) 325 mg PO Q6H [facility] Last Admin: 04/11/24 11:52 Dose: 325 mg Documented By: JULIO Albuterol/Ipratropium (Albuterol/Iprat 2.5/0.5mg 3 Ml Ampul.Neb) 3 ml INHALE RQ4H WHILE AWAKE [facility] Last Admin: 04/11/24 11:11 Dose: 3 ml Documented By: CAROLINE Albuterol/Ipratropium (Albuterol/Iprat 2.5/0.5mg 3 Ml Ampul.Neb) 3 ml INHALE RQ4H WHILE AWAKE PRN PRN Reason: Shortness of Breath/Wheezing Last Admin: 04/11/24 02:35 Dose: 3 ml Documented By: YUNIEL Allopurinol (Allopurinol 100 Mg Tablet) 100 mg PO DAILY [facility] Last Admin: 04/11/24 08:02 Dose: 100 mg Documented By: JULIO Aspirin (Aspirin Enteric Coated 81 Mg Tablet.) 81 mg PO BEDTIME [facility] Last Admin: 04/10/24 21:39 Dose: 81 mg Documented By: MARGUERITE Atorvastatin Calcium (Atorvastatin Calcium 80 Mg Tablet) 80 mg PO BEDTIME [facility]; Protocol Last Admin: 04/10/24 21:40 Dose: 80 mg Documented By: MARGUERITE Calcium Carbonate (Calcium Carbonate 750 Mg Tab.Chew) 750 mg PO Q4H PRN PRN Reason: Heartburn Carvedilol (Carvedilol 6.25 Mg Tablet) 6.25 mg PO BID [facility]; Protocol Last Admin: 04/11/24 08:04 Dose: 6.25 mg Documented By: JULIO Celecoxib (Celecoxib 200 Mg Capsule) 200 mg PO BID PRN PRN Reason: Pain, Mild (Pain Scale 1-3) Docusate Sodium (Docusate Sodium 100 Mg Capsule) 100 mg PO BEDTIME [facility] Last Admin: 04/10/24 21:39 Dose: 100 mg Documented By: MARGUERITE Empagliflozin (Empagliflozin 10 Mg Tablet) 10 mg PO DAILY [facility] Last Admin: 04/11/24 08:04 Dose: 10 mg Documented By: JULIO Enoxaparin Sodium (Enoxaparin Sodium 40 Mg/0.4 Ml Syringe) 40 mg SUBCUT Q24H [facility] Last Admin: 04/10/24 14:43 Dose: 40 mg Documented By: MAYCOL Fluticasone Propionate (Fluticasone Propionate Nasal 16 Gm [place]) 1 spray NOSTRIL-B DAILY PRN PRN Reason: Congestion Fluticasone/Umeclidinium/Vilanterol (Fluticasone/Umeclidinium/Vilanterol 100/62.5/25 Blst.W.Dev) 1 puff INHALE RDAILY [facility] Last Admin: 04/11/24 07:51 Dose: 1 puff Documented By: ALEX Glucose (Glucose Gel 15 Gm Gel..Gram.) 15 gm PO Q15M PRN; Protocol PRN Reason: per Hypoglycemia Standing Ord. Guaifenesin/Dextromethorphan (Guaifenesin Dm 200/20/10 Ml 10 Ml Syrup) 10 ml PO Q4H PRN PRN Reason: Cough Last Admin: 04/10/24 21:52 Dose: 10 ml Documented By: MARGUERITE Dextrose (D10) 250 mls @ 750 mls/hr IV Q15M PRN; Protocol PRN Reason: per Hypoglycemia Standing Ord. Insulin Glargine (Insulin Glargine,Hum.Rec.Anlog 100 Unit/Ml 10 Ml Vial) 35 unit SUBCUT BEDTIME [facility] Last Admin: 04/10/24 21:38 Dose: 35 unit Documented By: MARGUERITE Insulin Glargine (Insulin Glargine,Hum.Rec.Anlog 100 Unit/Ml 10 Ml Vial) 35 unit SUBCUT DAILY [facility] Last Admin: 04/11/24 08:03 Dose: 35 unit Documented By: JULIO Insulin Human Lispro (Insulin Lispro 100 Unit/Ml 3 Ml Vial) 0 unit SUBCUT QIDACHS [facility]; Protocol Last Admin: 04/11/24 11:52 Dose: 4 unit Documented By: JULIO Levothyroxine Sodium (Levothyroxine Sodium 112 Mcg Tablet) 112 mcg PO DAILY@0600 [facility] Last Admin: 04/11/24 05:39 Dose: 112 mcg Documented By: MARGUERITE Loratadine (Loratadine 10 Mg Tablet) 10 mg PO DAILY PRN PRN Reason: allergies Magnesium Hydroxide (Milk Of Magnesia 30 Ml Oral.Susp) 30 ml PO DAILY PRN PRN Reason: Constipation Last Admin: 04/09/24 22:00 Dose: 30 ml Documented By: STEPHANIE Melatonin (Melatonin 3 Mg Tablet) 6 mg PO BEDTIME PRN PRN Reason: Insomnia Methocarbamol (Methocarbamol 750 Mg Tablet) 750 mg PO Q8H PRN PRN Reason: neuropathy Last Admin: 04/08/24 00:15 Dose: 750 mg Documented By: TONI Methylprednisolone Sodium Succinate (Methylprednisolone Sod Succ 40 Mg/Ml Vial) 40 mg IVPUSH Q24H [facility] Last Admin: 04/11/24 08:04 Dose: 40 mg Documented By: JULIO Montelukast Sodium (Montelukast Sodium 10 Mg Tablet) 10 mg PO BEDTIME [facility] Last Admin: 04/10/24 21:39 Dose: 10 mg Documented By: MARGUERITE Nicotine (Nicotine 14 Mg Patch.Td24) 14 mg TRANSDERMA DAILY [facility] Last Admin: 04/11/24 08:02 Dose: 14 mg Documented By: JULIO Non-Formulary Medication (Dulaglutide [Trulicity]) 1.5 mg SUBCUT FR [facility] Non-Formulary Medication (Dupilumab [Dupixent Pen]) 300 mg SUBCUT Q14D [facility] Omeprazole (Omeprazole 20 Mg Capsule.Dr) 20 mg PO BID@0630,6970 [facility] Last Admin: 04/11/24 05:39 Dose: 20 mg Documented By: MARGUERITE Ondansetron HCl (Ondansetron Hcl 4 Mg/2 Ml Vial) 4 mg IVPUSH Q8H PRN PRN Reason: Nausea and Vomiting Oxycodone HCl (Oxycodone Hcl Immed Release 5 Mg Tablet) 7.5 mg PO Q6H [facility] Last Admin: 04/11/24 11:53 Dose: 7.5 mg Documented By: JULIO Pregabalin (Pregabalin 100 Mg Capsule) 100 mg PO TID [facility] Last Admin: 04/11/24 08:03 Dose: 100 mg Documented By: JULIO Pyridoxine HCl (Pyridoxine Hcl (Vitamin B6) 50 Mg Tablet) 50 mg PO BEDTIME [facility] Last Admin: 04/10/24 21:40 Dose: Not Given Documented By: MARGUERITE Non-Admin Reason: Patient Refused Roflumilast (Roflumilast 500 Mcg Tablet) 500 mcg PO DAILY [facility] Last Admin: 04/11/24 08:03 Dose: 500 mcg Documented By: JULIO Senna (Sennosides 8.6 Mg Tablet) 8.6 mg PO BID [facility] Last Admin: 04/11/24 08:02 Dose: 8.6 mg Documented By: JULIO Sodium Biphosphate/Sodium Phosphate (Sodium Phosphate,[place]-Dibasic 133 Ml Enema) 133 ml LA ONCE PRN PRN Reason: Constipation Sodium Chloride (0.9 % Sodium Chloride Flush 3 Ml Syringe) 3 ml IVFLUSH QSHIFT [facility] Last Admin: 04/11/24 08:04 Dose: 3 ml Documented By: JULIO Vitamin D (Cholecalciferol (Vitamin D3) 25 Mcg Tablet) 50 mcg PO DAILY [facility] Last Admin: 04/11/24 08:04 Dose: Not Given Documented By: JULIO Non-Admin Reason: Patient Refused Labs 04/07/24 10:24 04/07/24 14:12 Labs: Laboratory Results - last 24 hr 04/10/24 04/10/24 04/11/24 16:23 20:20 08:07 POC Glucose 212 H 243 H 146 H 04/11/24 11:27 POC Glucose 235 H Assessment and Plan (1) RSV infection: Status: Acute (2) Acute exacerbation of chronic obstructive pulmonary disease: Status: Acute Plan 63-year-old female with a PMH significant for?CAD, insulin-dependent type 2 diabetes COPD not on home O2, HTN, hypothyroidism, GERD, and gout who presents to the ED with?cough, SOB, and hypoxia at home. Pt will be admitted to the hospital for treatment and further evaluation of acute hypoxic respiratory failure in the setting of acute COPD exacerbation from RSV infection. Acute hypoxic respiratory failure in the setting of COPD exacerbation from RSV infection has sob with minimal excersion SOBsimilar, cough, RSV+, desatting to mid 80s on RA CXR negative for pneumonia, no indication for antibiotics at this time Solu-Medrol DuoNebs, and guaifenesin,Titrate supplemental O2 >92, wean as tolerated Monitor respiratory status CAD Continue aspirin, statin HTN Continue carvedilol Insulin-dependent type 2 diabetes Sliding-scale insulin, Lantus Diabetic diet Peripheral neuropathy Continue gabapentin Gout Continue allopurinol constipation - continue current bowel regimen added prn enema Full Code DVT Prophylaxis: Lovenox ongoing need for hospitalization for treatment of?acute hypoxic respiratory failure in the setting of acute COPD exacerbation from RSV infection. Pt require administration of IV steroids, DuoNebs, and supplemental oxygen. Quality Stroke Does the patient have a stroke diagnosis?: No VTE Prior VTE?: No VTE Risk Level:: Medical - moderate - high VTE Device Contraindication: Treatment Not Indicated VTE Drug Contraindication: N/A - Med Ordered
--- NOTE | 2024-04-11 14:37 | PC.RT ---
Home O2 eval completed. Pt requires 3L at rest and 6L with ambulation. MD states pt will not go home today, but anticipated discharge will be tomorrow now. Will re-evaluate for O2 needs on day of discharge.
[2024-04-11] MEDS: Enoxaparin Sodium 40 MG/0.4 ML SYRINGE SUBCUT (15:06)
[2024-04-11 16:13] LABS: Glucose, Whole Blood 159 mg/dL (60-115)
[2024-04-11] MEDS: Montelukast Sodium 10 MG TABLET PO (19:48)
[2024-04-11] MEDS: Melatonin 3 MG TABLET 6 MG PO (19:48)
[2024-04-11] MEDS: Aspirin Enteric Coated 81 MG TABLET.DR PO (19:49)
[2024-04-11] MEDS: Docusate Sodium 100 MG CAPSULE PO (19:49)
[2024-04-11] MEDS: Pyridoxine HCl (Vitamin B6) 50 MG TABLET PO (19:49)
[2024-04-11] MEDS: Atorvastatin Calcium 80 MG TABLET PO (19:50)
[2024-04-11] MEDS: guaiFENesin DM 200/20/10 ML 10 ML SYRUP PO (20:11)
[2024-04-11 20:25] LABS: Glucose, Whole Blood 136 mg/dL (60-115)
[2024-04-12] MEDS: Albuterol/Iprat 2.5/0.5MG 3 ML AMPUL.NEB INHALE ×2 (00:32→05:47)
[2024-04-12 00:36] VITALS: PULSE 82; RESP 16; O2SAT 93
[2024-04-12 04:00] VITALS: BP 151/72; PULSE 71; RESP 20; TEMP 36.2; O2SAT 93
[2024-04-12] MEDS: Levothyroxine Sodium 112 MCG TABLET PO (05:45)
[2024-04-12] MEDS: Omeprazole 20 MG CAPSULE.DR PO (05:45)
[2024-04-12] MEDS: Acetaminophen 325 MG TABLET PO (05:45)
[2024-04-12] MEDS: oxyCODONE HCl Immed Release 5 MG TABLET 7.5 MG PO (05:45)
[2024-04-12 05:50] VITALS: PULSE 73; O2SAT 93
[2024-04-12 07:36] VITALS: BP 138/76; PULSE 75; RESP 18; TEMP 36; O2SAT 93
[2024-04-12 07:49] LABS: Glucose, Whole Blood 77 mg/dL (60-115)
[2024-04-12] MEDS: Sennosides 8.6 MG TABLET PO (08:02)
[2024-04-12] MEDS: allopurinoL 100 MG TABLET PO (08:02)
[2024-04-12] MEDS: Pregabalin 100 MG CAPSULE PO (08:02)
[2024-04-12] MEDS: Cholecalciferol (Vitamin D3) 25 MCG TABLET 50 MCG PO (08:02)
[2024-04-12] MEDS: Roflumilast 500 MCG TABLET PO (08:02)
[2024-04-12] MEDS: Empagliflozin 10 MG TABLET PO (08:02)
[2024-04-12] MEDS: methylPREDNISolone Sod Succ 40 MG/ML VIAL IVPUSH (08:02)
[2024-04-12] MEDS: carvediloL 6.25 MG TABLET PO (08:03)
[2024-04-12] MEDS: Insulin Glargine,Hum.rec.anlog 100 UNIT/ML 10 ML VIAL 35 UNIT SUBCUT (08:03)
[2024-04-12] MEDS: Nicotine 14 MG PATCH.TD24 TRANSDERMA (08:04)
[2024-04-12] MEDS: 0.9 % Sodium Chloride Flush 3 ML SYRINGE IVFLUSH (08:12)
[2024-04-12 08:57] VITALS: O2SAT 84; O2SAT 86; O2SAT 91; O2SAT 92
[2024-04-12] MEDS: Fluticasone/Umeclidinium/Vilanterol 100/62.5/25 BLST.W.DEV 1 PUFF INHALE (08:57)
--- NOTE | 2024-04-12 09:56 | MHC.CM.PN ---
pt dcd home sandhya/claudia
== END 2024-04-12 10:20 | disposition home health service (06) | DRG 190 ==
LOC: HO.ED 14:10 → HO.EDOVER 15:19 → HO.S3 15:27
PROVIDERS: Admitting Provider Student in an Organized Health Care Education/Training Program; Emergency Provider Emergency Medicine; PCP Internal Medicine Geriatric Medicine; Visit Provider Internal Medicine
DX: J44.1 Chronic obstructive pulmonary disease with (acute) exacerbation (principal); J96.01 Acute respiratory failure with hypoxia; I25.10 Atherosclerotic heart disease of native coronary artery without angina pectoris; I10 Essential (primary) hypertension; K21.9 Gastro-esophageal reflux disease without esophagitis; B97.4 Respiratory syncytial virus as the cause of diseases classified elsewhere; E11.42 Type 2 diabetes mellitus with diabetic polyneuropathy; K59.00 Constipation, unspecified; M10.9 Gout, unspecified; Z20.822 Contact with and (suspected) exposure to COVID-19; Z87.891 Personal history of nicotine dependence; Z79.4 Long term (current) use of insulin; Z79.82 Long term (current) use of aspirin; Z79.52 Long term (current) use of systemic steroids; Z79.899 Other long term (current) drug therapy
CPT/HCPCS: 0241U; 36415; 71045; 80048; 80076; 82803; 82947; 83735; 83880; 84484; 85025; 85610; 86140; 93005; 94640; 97161; 99285; J1650; J2919

== ENCOUNTER → 2024-04-07 09:37 | Outpatient (BNV) | payer OTHER, SELFPAY | PROVIDERS: Emergency Provider Emergency Medicine; PCP Internal Medicine Geriatric Medicine; Visit Provider Internal Medicine | DX: I45.10 Unspecified right bundle-branch block (principal) | CPT/HCPCS: 93010 ==

== ENCOUNTER → 2024-04-07 09:37 | Outpatient (BNV) | payer OTHER, SELFPAY | PROVIDERS: Emergency Provider Emergency Medicine; PCP Internal Medicine Geriatric Medicine; Visit Provider Radiology Diagnostic Radiology | DX: R06.02 Shortness of breath (principal) | CPT/HCPCS: 71045 ==

== ENCOUNTER → 2024-04-07 15:18 | Outpatient (BNV) | payer OTHER, SELFPAY | PROVIDERS: Admitting Provider Student in an Organized Health Care Education/Training Program; Emergency Provider Emergency Medicine; PCP Internal Medicine Geriatric Medicine; Visit Provider Student in an Organized Health Care Education/Training Program | DX: B33.8 Other specified viral diseases (principal); J44.1 Chronic obstructive pulmonary disease with (acute) exacerbation; R09.02 Hypoxemia | CPT/HCPCS: 99223; 99232 ==

== ENCOUNTER 2024-04-14 18:08 | Inpatient (IN) | payer OTHER, SELFPAY ==
--- NOTE | ~2024-04-14 | XR_ITS ---
CLINICAL HISTORY: sob 1 view chest x-ray Comparison: Chest x-ray from 04/07/2024 Findings: Low lung volumes with mild bibasilar atelectasis/pneumonitis, right worse than left. Moderate emphysematous changes are redemonstrated. Borderline elevation left hemidiaphragm with mild blunting of the costophrenic angles. This may be due to mild effusions or pleural thickening. No pneumothorax. 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 IMPRESSION: 1. Mild bibasilar atelectasis/pneumonitis. 2. Blunting of the costophrenic angles may be due to small and/or minimal effusions. This document has been electronically signed by: Peña Burden MD on 04/14/2024 19:22:54
[2024-04-14 18:17] VITALS: BP 153/72; BP 185/102; PULSE 117; PULSE 121; RESP 28; O2SAT 88; O2SAT 95; BMI 28.3
--- NOTE | 2024-04-14 18:19 | ECG_ITS ---
Test Reason : DYSPNEA Blood Pressure : */* mmHG Vent. Rate : 118 BPM Atrial Rate : 118 BPM P-R Int : 126 ms QRS Dur : 86 ms QT Int : 332 ms P-R-T Axes : 73 264 83 degrees QTcB Int : 465 ms Sinus tachycardia Right superior axis deviation Pulmonary disease pattern Nonspecific ST abnormality Abnormal ECG When compared with ECG of 07-Apr-2024 09:54, No significant change was found Referred By: Tequila Luna Electronically Signed By: DAVI KEEN MD
[2024-04-14 18:25] VITALS: PULSE 84; RESP 36; O2SAT 95
[2024-04-14 18:26] VITALS: PULSE 86; RESP 36; O2SAT 95
[2024-04-14] MEDS: Albuterol Sulfate 2.5 MG, Albuterol Sulfate (0.083%) 2.5 MG 5 MG INHALE (18:37)
[2024-04-14 18:45] LABS: MANUAL DIFF FLAG NO
[2024-04-14 18:55] LABS: VBG Base Excess 7.1 mmol/L; VBG HCO3 31 mmol/L (22-26); VBG pCO2 44 mmHg; VBG pH 7.46 (7.32-7.43); VBG pO2 51 mmHg
[2024-04-14 18:56] LABS: Venous Blood Gas Refer to POC result
[2024-04-14 18:57] LABS: Basophils Percent Auto 0.2 % (0-2); Hematocrit 53.7 % (37.0-47.0); Hemoglobin 17.6 g/dl (12.0-16.0); Imm Gran Abs Auto 0.13 X10*3/uL (0.00-0.03); Imm Gran Pct Auto 0.6 % (0.0-0.4); Lymphocytes Absolute Auto 2.9 X10*3/uL (1.2-4.9); Lymphocytes Percent Auto 14.2 % (20-40); Mean Corpuscular HGB Conc 32.8 g/dl (31.0-35.0); Mean Corpuscular Hemoglobin 28.5 pg (27.0-33.0); Mean Corpuscular Volume 86.9 fL (80.0-98.0); Mean Platelet Volume 10.6 fL (9.4-12.3); Monocytes Absolute Auto 0.9 X10*3/uL (0.1-1.2); Monocytes Percent Auto 4.6 % (2-11); Neutrophils Absolute Auto 16.5 x10*3/uL (2.0-8.3); Neutrophils Percent Auto 80.4 % (45-73); Platelet Count 317 X10*3/uL (160-400); Red Blood Count 6.18 X10*6/uL (4.20-5.50); Red Cell Distribution Width 14.7 % (11.0-16.0); White Blood Count 20.6 X10*3/uL (4.8-10.8)
[2024-04-14 19:04] LABS: Anion Gap 15 (12-20); Blood Urea Nitrogen 22 mg/dL (9-16); Calcium 8.4 mg/dL (8.4-10.2); Carbon Dioxide 28 mmol/L (22-29); Chloride 108 mmol/L (96-108); Estimated Glomerular Filt Rate > 60; Glucose Random 144 mg/dL (60-115); Lactic Acid 1.7 mmol/L (0.5-2.0); Magnesium 3.2 mg/dL (1.6-2.6); Potassium 3.9 mmol/L (3.3-5.1); Sodium 147 mmol/L (135-145)
[2024-04-14 19:11] LABS: Troponin-I High Sensitivity 8.5 ng/L (<3.5-17.0)
--- NOTE | 2024-04-14 19:13 | ED_ITS ---
HPI - SOB/Dyspnea General Chief Complaint: Dyspnea Stated Complaint: sob, hx copd, 80% 2l, 90% on cpap Time Seen by Provider: 04/14/24 18:17 Source: patient Limitations: no limitations History of Present Illness ED Provider: Tequila Luna PA-C HPI Narrative: 63-year-old female with a history of CAD, insulin-dependent type 2 diabetes, asthma/ COPD not on home O2, HTN, hypothyroidism, GERD, presents with shortness of breath. Patient was recently discharged 3 days ago from inpatient admission for COPD exacerbation. Today, the patient developed acute onset shortness of breath. When EMS arrived, the patient was 80% on her baseline 2 L nasal cannula, and hypertensive. Patient received Solu-Medrol, 2 g of magnesium, nitro paste and a DuoNeb. Patient denies known fever at home, no chest pain. Related Data Home Medications ?Medication ?Instructions ?Recorded ?Confirmed aspirin 81 mg tablet,delayed 81 mg PO BEDTIME 12/24/19 04/14/24 release atorvastatin 80 mg tablet 80 mg PO BEDTIME 12/24/19 04/14/24 carvedilol 6.25 mg tablet 6.25 mg PO BID 12/24/19 04/14/24 cetirizine 10 mg tablet 10 mg PO DAILY PRN allergies 12/24/19 04/14/24 montelukast 10 mg tablet 10 mg PO BEDTIME 12/24/19 04/14/24 omeprazole 20 mg capsule,delayed 20 mg PO BID@0630,1630 12/24/19 04/14/24 release ipratropium 20 mcg-albuterol 100 2 puff inhalation BID 01/02/20 04/14/24 mcg/actuation mist for inhalation (Combivent Respimat) docusate sodium 100 mg capsule 1 cap PO BEDTIME Constipation 01/24/21 04/14/24 blood sugar diagnostic (FreeStyle #10 ea 10/07/21 03/03/24 Lite Strips) lancets 33 gauge (TRUEplus Lancets) #100 ea 10/07/21 03/03/24 naloxone 4 mg/actuation nasal spray 1 spray intranasal ONCE PRN Opioid 10/07/21 04/14/24 Overdose oxycodone-acetaminophen 7.5 mg-325 1 tab PO Q6H PRN severe pain 06/23/22 04/14/24 mg tablet fluticasone propionate 50 1 spray intranasal DAILY PRN 07/25/22 04/14/24 mcg/actuation nasal Congestion spray,suspension dulaglutide 1.5 mg/0.5 mL 1.5 mg subcut FR 08/06/22 04/14/24 subcutaneous pen injector (Trulicity) ipratropium 0.5 mg-albuterol 3 mg 3 ml inhalation QID PRN Shortness 01/30/23 04/14/24 (2.5 mg base)/3 mL nebulization Of Breath Or Wheezing soln sennosides 8.6 mg tablet (senna) 8.6 mg PO BID Constipation 01/30/23 04/14/24 nebulizers 06/03/23 03/03/24 empagliflozin 10 mg tablet 10 mg PO DAILY 02/10/24 04/14/24 (Jardiance) methocarbamol 750 mg tablet 750 mg PO Q8H PRN neuropathy 03/03/24 04/14/24 insulin aspart U-100 100 unit/mL See Protocol subcut TIDAC 04/07/24 04/14/24 (3 mL) subcutaneous pen (Novolog FlexPen U-100 Insulin aspart) insulin glargine 100 unit/mL (3 35 unit subcut BID 04/07/24 04/14/24 mL) subcutaneous pen (Lantus Solostar U-100 Insulin) levothyroxine 112 mcg tablet 112 mcg PO DAILY@0600 04/07/24 04/14/24 lidocaine 5 % topical patch 1 patch topical DAILY PRN pain 04/07/24 04/14/24 pregabalin 100 mg capsule 100 mg PO TID 04/07/24 04/14/24 prednisone 20 mg tablet See Rx Instructions .Route .COMPLEX 04/14/24 04/14/24 Previous Rx's ?Medication ?Instructions ?Recorded Ventolin HFA 90 mcg/actuation 2 puff inhalation Q4-6H PRN for 07/27/23 aerosol inhaler (albuterol sulfate) wheezing #18 grams arm brace (HANK Elbow Brace) #1 ea 08/27/23 roflumilast 500 mcg tablet 500 mcg PO DAILY #30 tabs 10/22/23 nicotine 21 mg/24 hr daily 1 patch transdermal DAILY 28 days 10/28/23 transdermal patch #28 ea allopurinol 100 mg tablet 100 mg PO DAILY 90 days #90 tabs 02/10/24 dupilumab 300 mg/2 mL subcutaneous See Rx Instructions subcut Q2W 4 02/15/24 pen injector (Dupixent) weeks #4 mL prednisone 5 mg tablet 5 mg PO DAILY #30 tabs 03/07/24 fluticasone fur. 100 mcg-umeclid 1 ea inhalation DAILY #1 ea 03/09/24 62.5 mcg-vilant 25 mcg inhalat.powder (Trelegy Ellipta) Allergies Allergy/AdvReac Type Severity Reaction Status Date / Time HANK Inhibitors Allergy Severe ANGIO Verified 04/14/24 18:21 [HANK INHIBITORS] EDEMA enalapril Allergy Severe Anaphylaxis Verified 04/14/24 18:21 erythromycin base Allergy Severe HIVES ALL Verified 04/14/24 18:21 [ERYTHROMYCIN BASE] OVER metformin Allergy Unknown Verified 04/14/24 18:21 hydromorphone [From DILAUDID] AdvReac Severe TINGLING, Verified 04/14/24 18:21 PT DOES NOT LIKE THE FEELING MED GIVES HER Review of Systems 2 Review of Systems: Yes all other systems are reviewed and are negative Constitutional: Constitutional: Denies fatigue and Denies fever(s) Cardiovascular: Cardiovascular: Denies chest pain and Reports dyspnea Respiratory: Respiratory: Denies cough, Reports dyspnea and Reports wheezing Endocrine: Endocrine: Denies fatigue Allergic/Immunologic: Allergic/Immunologic: Reports wheezing PMFSH Past Medical History Attestation statement: The following information was validated with the patient. Medical History Asthma-COPD overlap syndrome Allergies History of back pain History of neuropathy Smokes tobacco daily Opioid dependence Nephrolithiasis Hyperlipidemia HTN (hypertension) Cardiomyopathy Myocardial infarction CAD (coronary artery disease) Cough Hypothyroidism, postsurgical Tubular adenoma Diabetes MCKAY (obstructive sleep apnea) Irritable bowel syndrome Hyperthyroidism Polycythemia Smoker Hypoxia COPD exacerbation Lesion of bronchus Tracheal anomaly Multinodular goiter Vitamin D deficiency Atelectasis Subclinical hyperthyroidism Goiter Pneumonia Pulmonary nodules COPD (chronic obstructive pulmonary disease) Surgical History History of coronary artery stent placement Hx of thyroidectomy History of thyroid surgery History of esophagogastroduodenoscopy (EGD) Hx of colonoscopy History of back surgery History of ureterostomy S/P lumpectomy, right breast History of cholecystectomy History of tonsillectomy Family History Family History Father No problems noted. Mother No problems noted. Paternal Aunt Diabetes Social History Social History Household Members: Spouse Housing: House Do you presently have visiting nurse or other home services: No Alcohol intake: never Comment: pt steady on feet Patient Tobacco Use Status: Former Tobacco user Tobacco use type: Cigar Cigarette Packs Per Day: 0.5 Cigarettes Per Day: 10 e-Cigarette/Vaping Use: Never Used Second Hand Smoke Exposure: Yes Substance Use Type: Other Advance Directives Date on File: 01/24/21 service: No Current occupational status: disabled Physical Exam 2 Vital Signs: Vital Signs: Last Vital Signs Temp 97.3 F 04/15/24 11:02 Pulse 97 04/15/24 11:31 Resp 18 04/15/24 11:15 BP 131/62 04/15/24 11:31 Pulse Ox 93 04/15/24 11:02 O2 Del Method Nasal Cannula 04/15/24 11:02 O2 Flow Rate 3 04/15/24 11:02 BMI result Body Mass Index 28.3 Const: Other: Awake, ill-appearing Orientation/consciousness: patient oriented x3 Resp: Other: Tachypneic, expiratory wheezes noted posterior chandler Cardio: Other: Normal peripheral perfusion no pedal edema Skin: Other: Warm dry no rash Neuro: General: patient oriented x3, no focal motor deficits and CN's II-XI intact bilaterally Psych: Other: Cooperative Course Reevaluation(s) Reevaluation #1: Sepsis identified, leukocytosis of 20, blood cultures and lactic were already obtained, the patient does not require weight based IV fluid given she is hypertensive and has a heart failure history, we will give a 500 mL bolus, ordering ceftriaxone, we will likely add Levaquin, waiting to see what her chest x-ray shows. Time: 19:13 Reevaluation #2: We were able to discontinue the BiPAP, the patient is on 3 L nasal cannula, which is a slight elevation from her baseline Medications Administered Generic Name Dose Route Start Last Admin Trade Name Freq PRN Reason Stop Dose Admin Albuterol/Ipratropium 3 ml 04/14/24 19:28 04/15/24 00:55 Albuterol/Iprat 2.5/0.5mg 3 Ml Ampul.Neb INHALE 3 ml Q4H PRN Administration Shortness of Breath/Wheezing Albuterol/Ipratropium 3 ml 04/14/24 20:00 04/15/24 11:14 Albuterol/Iprat 2.5/0.5mg 3 Ml Ampul.Neb INHALE 3 ml RQ4H WHILE AWAKE SOM Administration Enoxaparin Sodium 40 mg 04/14/24 20:00 04/14/24 19:49 Enoxaparin Sodium 40 Mg/0.4 Ml Syringe SUBCUT 40 mg Q24H SOM Administration Fluticasone/Umeclidinium/Vilanterol 1 puff 04/15/24 09:00 04/15/24 09:08 Fluticasone/Umeclidinium/Vilanterol 100/62.5/25 Blst.W.Dev INHALE Not Given RDAILY [facility] Guaifenesin/Dextromethorphan 10 ml 04/14/24 20:36 04/15/24 11:37 Guaifenesin Dm 200/20/10 Ml 10 Ml Syrup PO 10 ml Q4H PRN Administration Cough Insulin Glargine 20 unit 04/15/24 09:00 04/15/24 08:48 Insulin Glargine,Hum.Rec.Anlog 100 Unit/Ml 10 Ml Vial SUBCUT 20 unit BID SOM Administration Insulin Human Lispro 0 unit 04/14/24 21:00 04/15/24 11:23 Insulin Lispro 100 Unit/Ml 3 Ml Vial SUBCUT 2 unit QIDACHS SOM Administration Protocol Methylprednisolone Sodium Succinate 40 mg 04/15/24 09:00 04/15/24 08:48 Methylprednisolone Sod Succ 40 Mg/Ml Vial IVPUSH 40 mg Q12H SOM Administration Nicotine 14 mg 04/14/24 20:35 04/15/24 08:50 Nicotine 14 Mg Patch.Td24 TRANSDERMA 14 mg DAILY SOM Administration Oseltamivir Phosphate 75 mg 04/14/24 20:00 04/15/24 08:48 Oseltamivir Phosphate 75 Mg Capsule PO 04/19/24 08:01 75 mg Q12H SOM Administration Oxycodone HCl 7.5 mg 04/15/24 08:56 04/15/24 09:05 Oxycodone Hcl Immed Release 5 Mg Tablet PO 7.5 mg Q6H PRN Administration severe pain Pregabalin 100 mg 04/15/24 09:00 04/15/24 09:06 Pregabalin 100 Mg Capsule PO 100 mg TID SOM Administration Roflumilast 500 mcg 04/15/24 09:00 04/15/24 10:20 Roflumilast 500 Mcg Tablet PO Not Given DAILY SOM Sodium Chloride 3 ml 04/15/24 00:00 04/15/24 08:51 0.9 % Sodium Chloride Flush 3 Ml Syringe IVFLUSH 3 ml QSHIFT SOM Administration Discontinued Medications Generic Name Dose Route Start Last Admin Trade Name Freq PRN Reason Stop Dose Admin Albuterol Sulfate 2.5 mg/ 5 mg 04/14/24 18:24 04/14/24 18:37 Albuterol Sulfate 2.5 mg INHALE 04/14/24 18:25 5 mg ONCE ONE Administration Ceftriaxone Sodium 2 gm 04/14/24 19:10 04/14/24 19:24 Ceftriaxone Sodium 2 Gm Vial IVPUSH 04/14/24 19:11 2 gm ONCE ONE Administration Sodium Chloride 500 mls @ 500 mls/hr 04/14/24 19:14 04/15/24 11:26 Ns IV 04/14/24 20:13 Infused .Q1H ONE Infusion Oxycodone HCl 10 mg 04/14/24 19:32 04/14/24 19:49 Oxycodone Hcl Immed Release 5 Mg Tablet PO 04/14/24 19:33 10 mg ONCE ONE Administration Medical Decision Making Medical Decision Making MDM Narrative: 63-year-old female with a history of CAD, heart failure, insulin-dependent type 2 diabetes, asthma/ COPD not on home O2, HTN, hypothyroidism, GERD, presents with shortness of breath. Patient was recently discharged 3 days ago from inpatient admission for COPD exacerbation. Today, the patient developed acute onset shortness of breath. When EMS arrived, the patient was 80% on her baseline 2 L nasal cannula, and hypertensive. Patient received Solu-Medrol, 2 g of magnesium, nitro paste and a DuoNeb. Patient denies known fever at home, no chest pain. Problem: COPD/asthma, oxygen dependence, coronary artery disease, heart failure, History: Per patient and EMS I have considered the following differential diagnoses: CHF exacerbation, COPD exacerbation, sepsis, viral syndrome, pneumonia, ACS Plan: Believe the patient to have a mixed picture of COPD versus CHF exacerbation. She will be placed on BiPAP, giving an additional updraft. We will be screening basic labs, VBG, blood cultures lactic acid. We will start empiric ceftriaxone. She is hypertensive, with her heart failure history, she does not require weight based IV fluid, and she does not require it. We will just given 500 mL bolus. She is afebrile. We will be adding troponin, BNP, EKG and chest x-ray. As already stated, the patient received nitro paste. Given recent admission, the patient could have picked up another virus while being within the hospital, repeating the viral panel. I have independently reviewed the following tests: Labs: Significant leukocytosis of 20.6 with left shift, not anemic she is hemoconcentrated, no electrolyte abnormality, viral panel positive for RSV and influenza A, troponin 8.5, BNP 48, VBG pH of 7.46, bicarb 31, CO2 44, not bad for her EKG: Sinus tachycardia, rate of 118, pulmonary disease pattern once again demonstrated, no changes from recent study, no ischemic changes, QTC 465 Chest x-ray:IMPRESSION: 1. Mild bibasilar atelectasis/pneumonitis. 2. Blunting of the costophrenic angles may be due to small and/or minimal effusions. This document has been electronically signed by: Peña Burden MD on 04/14/2024 19:22:54 Lab Data 04/15/24 06:07 04/15/24 06:07 Labs: Lab Results 04/14/24 Range/Units 18:34 WBC 20.6 H (4.8-10.8) X10*3/uL RBC 6.18 H (4.20-5.50) X10*6/uL Hgb 17.6 H (12.0-16.0) g/dl Hct 53.7 H (37.0-47.0) % MCV 86.9 (80.0-98.0) fL MCH 28.5 (27.0-33.0) pg MCHC 32.8 (31.0-35.0) g/dl RDW 14.7 (11.0-16.0) % Plt Count 317 (160-400) X10*3/uL MPV 10.6 (9.4-12.3) fL Immature Gran % (Auto) 0.6 H (0.0-0.4) % Neut % (Auto) 80.4 H (45-73) % Lymph % (Auto) 14.2 L (20-40) % [place] % (Auto) 4.6 (2-11) % Eos % (Auto) 0.0 (0-4) % Baso % (Auto) 0.2 (0-2) % Lymph # (Auto) 2.9 (1.2-4.9) X10*3/uL [place] # (Auto) 0.9 (0.1-1.2) X10*3/uL Eos # (Auto) 0.0 (0.0-0.4) X10*3/uL Baso # (Auto) 0.0 (0.0-0.2) X10*3/uL Abs Immat Gran (auto) 0.13 H (0.00-0.03) X10*3/uL Absolute Neuts (auto) 16.5 H (2.0-8.3) x10*3/uL Absolute Nucleated RBC 0.000 (0.0-0.012) X10*3/uL Nucleated RBC % (auto) 0.0 (0.0-0.2) /100WBC VBG pH 7.46 H (7.32-7.43) VBG pCO2 44 mmHg VBG pO2 51 mmHg VBG HCO3 31 H (22-26) mmol/L VBG O2 Saturation 78.0 % VBG Base Excess 7.1 mmol/L Sodium 147 H (135-145) mmol/L Potassium 3.9 (3.3-5.1) mmol/L Chloride 108 (96-108) mmol/L Carbon Dioxide 28 (22-29) mmol/L Anion Gap 15 (12-20) BUN 22 H (9-16) mg/dL Creatinine 0.81 (0.5-1.4) mg/dL Estim Creat Clear Calc 72.0 Estimated GFR > 60 Random Glucose 144 H (60-115) mg/dL Lactic Acid 1.7 (0.5-2.0) mmol/L Calcium 8.4 (8.4-10.2) mg/dL Magnesium 3.2 H (1.6-2.6) mg/dL Troponin I High Sens 8.5 D (<3.5-17.0) ng/L B-Natriuretic Peptide 48 (<100) pg/mL Influenza Type A (PCR) POSITIVE A (Negative) Influenza Type B (PCR) NEGATIVE (Negative) RSV RNA Qual (PCR) POSITIVE A (Negative) SARS-CoV-2 RNA (RT-PCR) NEGATIVE (Negative) Attestation Attending Attestation: I was personally present and available for consultation in the ED. I have reviewed everything on the chart that is available and agree with the documentation provided by the NOHEMI including discussion about the assessment, treatment plan and discussion. Based on medical record the care appears appropriate. Sarmad Hartman MD [facility] Emergency Medicine Critical Care Time Critical Care Time Critical Care Time: Yes Total Critical Care Time: 30 Attestation: I Tequila Luna PA-C have personally performed critical care time not including procedures or line placement Discharge Plan Discharge Clinical Impression: COPD exacerbation, Influenza A, Acute on chronic hypoxic respiratory failure Patient Disposition: Admitted As Inpatient Interventions: Admission Worksheet (ED) Last Done: 04/15/24 07:47 Discharge Date/Time: 04/15/24 10:43
[2024-04-14 19:24] LABS: B Type Natriuretic Peptide 48 pg/mL (<100)
[2024-04-14] MEDS: cefTRIAXone sodium 2 GM VIAL IVPUSH (19:24)
[2024-04-14 19:26] LABS: Influenza A PCR POSITIVE (Negative); Influenza B PCR NEGATIVE (Negative); Resp Syncy Virus RNA Qual PCR POSITIVE (Negative); SARS COV2 PCR INHOUSE NEGATIVE (Negative)
[2024-04-14] MEDS: 0.9 % Sodium Chloride 500 ML IV (19:35)
--- NOTE | 2024-04-14 19:37 | PC.NURSE ---
pt switched from BiPAP to nasal cannula 2L. maintaing 90% SpO2 at this time. pt calm talking to friend at bedside
[2024-04-14] MEDS: Albuterol/Iprat 2.5/0.5MG 3 ML AMPUL.NEB INHALE (19:40)
--- NOTE | 2024-04-14 19:40 | P.HPHOSP_ITS ---
History of Present Illness Date of Service: 04/14/24 Attending physician on admission: Cabrera Patel Chief Complaint: SOB Pt is a 63-year-old female with a PMH significant for?CAD, insulin-dependent type 2 diabetes, COPD recently started on 2L home O2, HTN, hypothyroidism, GERD, and gout who presents to the ED with?increased SOB, productive, and difficulty breathing since this morning. Pt was recently discharged from the hospital 2 days ago after being admitted for acute hypoxic respiratory failure in the setting of COPD exacerbation from RSV infection. During admission pt qualified for home O2 and was discharged on 2L. Reports she spent most of her time staying in her room while on supplemental oxygen. Last night developed a slight cough occasionally productive of whitish sputum. This morning symptoms worsened and pt developed SOB and difficulty breathing to the point where she could not catch her breath. Also complains of bilateral rib pain associated with deep breathing and cough. Pt increased her home O2 to 2.5 L without any alleviation of symptoms. Denies chest pressure or palpitations. No fever or chills. Denies nausea, vomiting, abdominal pain. Pt is still smokes approximately half a pack of cigarettes daily In the ED pt was tachycardic up to 117, tachypneic up to 36, and hypertensive up to 185/102. Pt initially brought in on rescue CPAP, satting at 95%. Labs were significant for testing positive for influenza a, leukocytosis 20.6 and sodium 147, otherwise grossly unremarkable and around baseline for pt. CXR showed mild bibasilar atelectasis/pneumonitis and possible small/minimal effusions. EKG demonstrated sinus tachycardia of 118 without significant ischemic changes. EMS treated pt with DuoNebs, Mag 2 g IV, Solu-Medrol 125 mg IV, and 2 in of nitro paste. In the ED pt received DuoNebs, IVF, and ceftriaxone 2 g IV. Pt will be admitted to the hospital for treatment and further evaluation of acute on chronic hypoxic respiratory failure in the setting of COPD exacerbation from influenza a infection. [facility] Medical History Asthma-COPD overlap syndrome Allergies History of back pain History of neuropathy Smokes tobacco daily Opioid dependence Nephrolithiasis Hyperlipidemia HTN (hypertension) Cardiomyopathy Myocardial infarction CAD (coronary artery disease) Cough Hypothyroidism, postsurgical Tubular adenoma Diabetes MCKAY (obstructive sleep apnea) Irritable bowel syndrome Hyperthyroidism Polycythemia Smoker Hypoxia COPD exacerbation Lesion of bronchus Tracheal anomaly Multinodular goiter Vitamin D deficiency Atelectasis Subclinical hyperthyroidism Goiter Pneumonia Pulmonary nodules COPD (chronic obstructive pulmonary disease) Family History Father No problems noted. Mother No problems noted. Paternal Aunt Diabetes Surgical History History of coronary artery stent placement Hx of thyroidectomy History of thyroid surgery History of esophagogastroduodenoscopy (EGD) Hx of colonoscopy History of back surgery History of ureterostomy S/P lumpectomy, right breast History of cholecystectomy History of tonsillectomy Social History Household Members: Spouse Housing: House Do you presently have visiting nurse or other home services: No Alcohol intake: never Comment: pt steady on feet Patient Tobacco Use Status: Current everyday Tobacco user Tobacco use type: Cigar Cigarette Packs Per Day: 0.5 Cigarettes Per Day: 10 e-Cigarette/Vaping Use: Never Used Second Hand Smoke Exposure: Yes Substance Use Type: Other Advance Directives: Yes Advance Directives on File: Yes Advance Directives Date on File: 01/24/21 service: No Current occupational status: disabled Meds Allergies Allergy/AdvReac Type Severity Reaction Status Date / Time HANK Inhibitors Allergy Severe ANGIO Verified 04/14/24 18:21 [HANK INHIBITORS] EDEMA enalapril Allergy Severe Anaphylaxis Verified 04/14/24 18:21 erythromycin base Allergy Severe HIVES ALL Verified 04/14/24 18:21 [ERYTHROMYCIN BASE] OVER metformin Allergy Unknown Verified 04/14/24 18:21 hydromorphone [From DILAUDID] AdvReac Severe TINGLING, Verified 04/14/24 18:21 PT DOES NOT LIKE THE FEELING MED GIVES HER Active Medications: Current Medications Acetaminophen (Acetaminophen 325 Mg Tablet) 650 mg PO Q6H PRN PRN Reason: Pain, Mild 1-3,fever,headache Albuterol/Ipratropium (Albuterol/Iprat 2.5/0.5mg 3 Ml Ampul.Neb) 3 ml INHALE Q4H PRN PRN Reason: Shortness of Breath/Wheezing Albuterol/Ipratropium (Albuterol/Iprat 2.5/0.5mg 3 Ml Ampul.Neb) 3 ml INHALE RQ4H WHILE AWAKE [facility] Benzonatate (Benzonatate 100 Mg Capsule) 100 mg PO TID PRN PRN Reason: Cough Calcium Carbonate (Calcium Carbonate 750 Mg Tab.Chew) 750 mg PO Q4H PRN PRN Reason: Heartburn Enoxaparin Sodium (Enoxaparin Sodium 40 Mg/0.4 Ml Syringe) 40 mg SUBCUT Q24H [facility] Glucose (Glucose Gel 15 Gm Gel..Gram.) 15 gm PO Q15M PRN; Protocol PRN Reason: per Hypoglycemia Standing Ord. Sodium Chloride (Ns) 500 mls @ 500 mls/hr IV .Q1H ONE Stop: 04/14/24 20:13 Last Admin: 04/14/24 19:35 Dose: 500 mls/hr Dextrose (D10) 250 mls @ 750 mls/hr IV Q15M PRN; Protocol PRN Reason: per Hypoglycemia Standing Ord. Insulin Human Lispro (Insulin Lispro 100 Unit/Ml 3 Ml Vial) 0 unit SUBCUT QIDACHS [facility]; Protocol Magnesium Hydroxide (Milk Of Magnesia 30 Ml Oral.Susp) 30 ml PO DAILY PRN PRN Reason: Constipation Melatonin (Melatonin 3 Mg Tablet) 6 mg PO BEDTIME PRN PRN Reason: Insomnia Methylprednisolone Sodium Succinate (Methylprednisolone Sod Succ 40 Mg/Ml Vial) 40 mg IVPUSH Q12H [facility] Ondansetron HCl (Ondansetron Hcl 4 Mg/2 Ml Vial) 4 mg IVPUSH Q8H PRN PRN Reason: Nausea and Vomiting Sodium Chloride (0.9 % Sodium Chloride Flush 3 Ml Syringe) 3 ml IVFLUSH QSHIFT [facility] Home Medications ?Medication ?Instructions ?Recorded ?Confirmed ?Last Taken ?Type aspirin 81 mg tablet,delayed 81 mg PO BEDTIME 12/24/19 04/14/24 04/13/24 History release atorvastatin 80 mg tablet 80 mg PO BEDTIME 12/24/19 04/14/24 04/13/24 History carvedilol 6.25 mg tablet 6.25 mg PO BID 12/24/19 04/14/24 04/14/24 History cetirizine 10 mg tablet 10 mg PO DAILY PRN allergies 12/24/19 04/14/24 04/07/24 History montelukast 10 mg tablet 10 mg PO BEDTIME 12/24/19 04/14/24 04/14/24 History omeprazole 20 mg capsule,delayed 20 mg PO BID@0630,1630 12/24/19 04/14/24 04/14/24 History release ipratropium 20 mcg-albuterol 100 2 puff inhalation BID 01/02/20 04/14/24 04/14/24 History mcg/actuation mist for inhalation (Combivent Respimat) docusate sodium 100 mg capsule 1 cap PO BEDTIME Constipation 01/24/21 04/14/24 04/13/24 History blood sugar diagnostic (FreeStyle #10 ea 10/07/21 03/03/24 10/20/22 09:00 History Lite Strips) lancets 33 gauge (TRUEplus Lancets) #100 ea 10/07/21 03/03/24 10/20/22 09:00 History naloxone 4 mg/actuation nasal spray 1 spray intranasal ONCE PRN Opioid 10/07/21 04/14/24 01/29/23 History Overdose oxycodone-acetaminophen 7.5 mg-325 1 tab PO Q6H PRN severe pain 06/23/22 04/14/24 04/07/24 History mg tablet fluticasone propionate 50 1 spray intranasal DAILY PRN 07/25/22 04/14/24 Unknown History mcg/actuation nasal Congestion spray,suspension dulaglutide 1.5 mg/0.5 mL 1.5 mg subcut FR 08/06/22 04/14/24 04/08/24 History subcutaneous pen injector (Trulicity) ipratropium 0.5 mg-albuterol 3 mg 3 ml inhalation QID PRN Shortness 01/30/23 04/14/24 06/17/23 06:00 History (2.5 mg base)/3 mL nebulization Of Breath Or Wheezing soln sennosides 8.6 mg tablet (senna) 8.6 mg PO BID Constipation 01/30/23 04/14/24 04/14/24 History nebulizers 06/03/23 03/03/24 Unknown History empagliflozin 10 mg tablet 10 mg PO DAILY 02/10/24 04/14/24 04/14/24 History (Jardiance) methocarbamol 750 mg tablet 750 mg PO Q8H PRN neuropathy 03/03/24 04/14/24 04/07/24 History insulin aspart U-100 100 unit/mL See Protocol subcut TIDAC 04/07/24 04/14/24 04/14/24 History (3 mL) subcutaneous pen (Novolog FlexPen U-100 Insulin aspart) insulin glargine 100 unit/mL (3 35 unit subcut BID 04/07/24 04/14/24 04/14/24 History mL) subcutaneous pen (Lantus Solostar U-100 Insulin) levothyroxine 112 mcg tablet 112 mcg PO DAILY@0600 04/07/24 04/14/24 04/14/24 History lidocaine 5 % topical patch 1 patch topical DAILY PRN pain 04/07/24 04/14/24 Unknown History pregabalin 100 mg capsule 100 mg PO TID 04/07/24 04/14/24 04/14/24 History prednisone 20 mg tablet 20 mg PO DAILY 04/14/24 04/14/24 04/14/24 History Physical Exam 2 Vital Signs and Narrative: Vital Signs: Last Vital Signs Pulse 84 04/14/24 18:25 Resp 36 H 04/14/24 18:26 BP 185/102 H 04/14/24 18:17 Pulse Ox 95 04/14/24 18:17 O2 Del Method CPAP 04/14/24 18:17 BMI result Body Mass Index 28.3 General: AOx3, pt leaning forward, in mild respiratory distress Resp: Lung sounds diminished with diffuse bilateral expiratory wheezing CVS: S1, S2, regular rate, tachycardic GI: +BS, NT, no distention Skin: Warm, dry Neuro: Cranial nerves II-XII grossly intact bilaterally. Motor grossly intact bilaterally Extremities: No edema Psych: Appropriate affect Results Labs 04/14/24 18:34 04/14/24 18:34 Labs: Laboratory Results - last 24 hr 04/14/24 18:34 MCV 86.9 MCH 28.5 MCHC 32.8 RDW 14.7 Plt Count 317 MPV 10.6 Immature Gran % (Auto) 0.6 H Neut % (Auto) 80.4 H Lymph % (Auto) 14.2 L [place] % (Auto) 4.6 Eos % (Auto) 0.0 Baso % (Auto) 0.2 Lymph # (Auto) 2.9 [place] # (Auto) 0.9 Eos # (Auto) 0.0 Baso # (Auto) 0.0 Abs Immat Gran (auto) 0.13 H Absolute Neuts (auto) 16.5 H Absolute Nucleated RBC 0.000 Nucleated RBC % (auto) 0.0 VBG pH 7.46 H VBG pCO2 44 VBG pO2 51 VBG HCO3 31 H VBG O2 Saturation 78.0 VBG Base Excess 7.1 Anion Gap 15 Estim Creat Clear Calc 72.0 Estimated GFR > 60 Random Glucose 144 H Lactic Acid 1.7 Calcium 8.4 Magnesium 3.2 H Troponin I High Sens 8.5 D B-Natriuretic Peptide 48 Influenza Type A (PCR) POSITIVE A Influenza Type B (PCR) NEGATIVE RSV RNA Qual (PCR) POSITIVE A SARS-CoV-2 RNA (RT-PCR) NEGATIVE Assessment and Plan (1) Acute exacerbation of chronic obstructive pulmonary disease: Status: Acute (2) Influenza A: Status: Acute Plan Pt is a 63-year-old female with a PMH significant for?CAD, insulin-dependent type 2 diabetes, COPD recently started on 2L home O2, HTN, hypothyroidism, GERD, and gout who presents to the ED with?increased SOB, productive, and difficulty breathing since this morning. Pt will be admitted to the hospital for treatment and further evaluation of acute on chronic hypoxic respiratory failure in the setting of COPD exacerbation from influenza a infection. Acute on chronic hypoxic respiratory failure in the setting of COPD exacerbation from influenza A infection Pt with SOB, cough, flu A+, initially requiring rescue CPAP to maintain 95% Pt received IV steroids, mag, and breathing treatments by EMS and in the ED with minimal response Pt just discharged from hospital 2 days prior after admission for COPD exacerbation secondary to RSV infection Will treat with Tamiflu, Solu-Medrol, DuoNebs, and guaifenesin No sepsis: CXR negative for pneumonia, no indication for antibiotics at this time Titrate supplemental O2 >92, wean as tolerated Monitor respiratory status CAD Continue aspirin, statin HTN Continue carvedilol Insulin-dependent type 2 diabetes Sliding-scale insulin, Lantus Diabetic diet Peripheral neuropathy Continue gabapentin Hypothyroidism Continue levothyroxine Gout Continue allopurinol Full Code Attending:?Dr. Patel DVT Prophylaxis: Lovenox Pt will require a hospitalization of at least two nights for treatment of?acute hypoxic respiratory failure in the setting of acute COPD exacerbation from influenza A infection. Given that pt was recently discharged from hospital for similar symptoms secondary to an RSV infection, pt is at risk for further rapid decompensation without hospital level care for administration of IV steroids, breathing treatments, and supplemental oxygen with close monitoring of respiratory status. Quality Stroke Does the patient have a stroke diagnosis?: No VTE Prior VTE?: No VTE Risk Level:: Medical - moderate - high VTE Device Contraindication: Treatment Not Indicated VTE Drug Contraindication: N/A - Med Ordered
[2024-04-14 19:44] LABS: Glucose, Whole Blood 168 mg/dL (60-115)
[2024-04-14] MEDS: oxyCODONE HCl Immed Release 5 MG TABLET 10 MG PO (19:49)
[2024-04-14] MEDS: Enoxaparin Sodium 40 MG/0.4 ML SYRINGE SUBCUT (19:49)
[2024-04-14] MEDS: Insulin Lispro 100 UNIT/ML 3 ML VIAL SUBCUT (19:50)
[2024-04-14] MEDS: Oseltamivir Phosphate 75 MG CAPSULE PO (19:52)
[2024-04-14 20:00] VITALS: RESP 22
--- NOTE | 2024-04-14 20:42 | PHA.MEDREC ---
Addendum entered by Braulio Colindres [facility] 04/14/24 21:57: MED REC CHECKED BY [facility] Original Note: Pharmacy Consult ? Medication Reconciliation Pharmacy has completed the medication reconciliation. Spoke with patient and she confirmed she was just discharged on 04/12 and confirmed the discharge packet was up to date. She confirmed the Prednisone 20mg regimen she got she claims she is only taking 1 tablet daily instead of 1 tab twice daily and when I asked about that the patient states The Dr told me to take one daily, I should be done with it tomorrow but states that regimen has not been helping her feel any better and that is why she is back here today. She also confirmed she is taking a Prenisone 5mg regimen consistently per her Dr and looking in claims the Prednisone 5mg tabs have been consistently filled since at least March 2023. She also claims that since she is taking the Prednisone 20mg tabs she stopped taking the Vitamin B, Vitamin D3 and Calcium tabs until she is done taking the prednisone 20mg regimen regimen. She confirmed her Trulicity 1.5 mg/0.5 mL and confirmed she takes it on Fridays and took it last Thursday and is due for it tomorrow. She confirmed the Dupixent Pen 300 mg/2 mL every 2 weeks and states she was due for that today but forgot to take it but confirmed she took it 2 weeks ago. She confirmed the Lantus Solostar U-100 Insulin and confirmed she is injecting 35 units twice a day. She confirmed the Novolog FlexPen U-100 Insulin and confirmed she is testing it three times a day before meals and injecting it via a sliding scale. She confirmed she took her medications this morning, she was able to take the first dose of Lantus this morning but was not able to do any Novolog today due to her sugars being high this morning.
[2024-04-14 20:50] VITALS: RESP 20
[2024-04-14 22:29] VITALS: BP 130/76; PULSE 99; RESP 22; TEMP 37.1; O2SAT 92
[2024-04-15] VITALS (11 sets, daily range): BP systolic 131–181; BP diastolic 62–84; PULSE 87–109; RESP 15–33; TEMP 36.3–36.9; O2SAT 92–96; BMI 26.8
[2024-04-15] MEDS: guaiFENesin DM 200/20/10 ML 10 ML SYRUP PO ×3 (00:50→20:26)
[2024-04-15] MEDS: Albuterol/Iprat 2.5/0.5MG 3 ML AMPUL.NEB INHALE ×6 (00:55→23:56)
[2024-04-15 06:23] LABS: Hematocrit 49.2 % (37.0-47.0); Hemoglobin 16.2 g/dl (12.0-16.0); Mean Corpuscular HGB Conc 32.9 g/dl (31.0-35.0); Mean Corpuscular Hemoglobin 28.7 pg (27.0-33.0); Mean Corpuscular Volume 87.2 fL (80.0-98.0); Mean Platelet Volume 10.6 fL (9.4-12.3); Platelet Count 268 X10*3/uL (160-400); Red Blood Count 5.64 X10*6/uL (4.20-5.50); Red Cell Distribution Width 14.1 % (11.0-16.0)
[2024-04-15 06:24] LABS: WBC ABN SCTR FOR CBC 1; White Blood Count 20.5 X10*3/uL (4.8-10.8)
[2024-04-15 06:51] LABS: Anion Gap 21 (12-20); Blood Urea Nitrogen 22 mg/dL (9-16); Carbon Dioxide 18 mmol/L (22-29); Chloride 107 mmol/L (96-108); Creatinine Clr Calc Pharmacy 82.2; Estimated Glomerular Filt Rate > 60; Glucose Random 180 mg/dL (60-115); Sodium 142 mmol/L (135-145)
[2024-04-15 07:38] LABS: Band Neutrophils Percent 1 % (3-5); Lymphocytes Absolute Manual 0.4 X10*3/uL (1.2-4.9); Lymphocytes Percent Manual 2 % (20-40); Neutrophils Absolute Manual 20.1 X10*3/uL (2.0-8.3); Neutrophils Percent Manual 97 % (45-73)
[2024-04-15 07:46] LABS: Acanthocytes 3+ (>5) /OIF; Hypersegmented Neutrophils PRESENT; Platelet Estimate NORMAL (NORMAL); Platelet Morphology Comment NORMAL; RBC Morphology NOTED; Schistocytes 1+ (0-2) /OIF
--- NOTE | 2024-04-15 07:55 | PC.NURSE ---
Alert and oriented, reports chronic lower back/ rib pain that she normally takes 7.5mg of oxycodone for. Message sent to provider. Patient sitting on edge of bed eating breakfast at this time.
[2024-04-15 08:03] LABS: Glucose, Whole Blood 159 mg/dL (60-115)
[2024-04-15] MEDS: Insulin Glargine,Hum.rec.anlog 100 UNIT/ML 10 ML VIAL 20 UNIT SUBCUT ×2 (08:48→20:24)
[2024-04-15] MEDS: methylPREDNISolone Sod Succ 40 MG/ML VIAL IVPUSH ×2 (08:48→20:26)
[2024-04-15] MEDS: Oseltamivir Phosphate 75 MG CAPSULE PO ×2 (08:48→20:27)
[2024-04-15] MEDS: Nicotine 14 MG PATCH.TD24 TRANSDERMA (08:50)
[2024-04-15] MEDS: 0.9 % Sodium Chloride Flush 3 ML SYRINGE IVFLUSH ×2 (08:51→16:42)
[2024-04-15] MEDS: oxyCODONE HCl Immed Release 5 MG TABLET 7.5 MG PO ×2 (09:05→17:42)
[2024-04-15] MEDS: Pregabalin 100 MG CAPSULE PO ×3 (09:06→20:28)
[2024-04-15 11:12] LABS: Glucose, Whole Blood 175 mg/dL (60-115)
[2024-04-15] MEDS: Insulin Lispro 100 UNIT/ML 3 ML VIAL SUBCUT ×3 (11:23→20:24)
--- NOTE | 2024-04-15 13:15 | MHC.CM.PN ---
PT LIVES WITH [place] [facility] [place] 02 AND IS ACTIVE WITH [facility] WILL TRANSPORT PT HOME
--- NOTE | 2024-04-15 16:17 | HO.PM.IMPN ---
Subjective Subjective Date of Service: 04/15/24 Interval History: seen and examined this morning follow up for influenza a, COPD feeling SOB, dry cough; no fever Review of Systems Review of Systems: Yes all other systems are reviewed and are negative Constitutional Constitutional: Denies chills and Denies fever(s) Physical Exam Vital Signs: Vital Signs: Last Vital Signs Temp 98.0 F 04/15/24 15:43 Pulse 105 H 04/15/24 15:43 Resp 18 04/15/24 15:43 BP 142/65 H 04/15/24 15:43 Pulse Ox 92 04/15/24 15:43 O2 Del Method Nasal Cannula 04/15/24 15:43 O2 Flow Rate 2 04/15/24 15:43 BMI result Body Mass Index 26.8 Const: General: alert and awake Nutritional Appearance: overweight Orientation/consciousness: patient oriented x3 Resp: Other: b/l exp wheeze; poor air entry Effort & Inspection: able to speak in complete sentences and no use of accessory muscles Cardio: Rate: tachycardic GI: Inspection: No distended Palpation (GI): Soft to palpation Neuro: Other: grossly nonfocal General: patient oriented x3 Objective Data Active Medications Acetaminophen (Acetaminophen 325 Mg Tablet) 650 mg PO Q6H PRN PRN Reason: Pain, Mild 1-3,fever,headache Albuterol/Ipratropium (Albuterol/Iprat 2.5/0.5mg 3 Ml Ampul.Neb) 3 ml INHALE Q4H PRN PRN Reason: Shortness of Breath/Wheezing Last Admin: 04/15/24 00:55 Dose: 3 ml Documented By: YAZMIN Albuterol/Ipratropium (Albuterol/Iprat 2.5/0.5mg 3 Ml Ampul.Neb) 3 ml INHALE RQ4H WHILE AWAKE [facility] Last Admin: 04/15/24 15:03 Dose: 3 ml Documented By: ALEX Calcium Carbonate (Calcium Carbonate 750 Mg Tab.Chew) 750 mg PO Q4H PRN PRN Reason: Heartburn Enoxaparin Sodium (Enoxaparin Sodium 40 Mg/0.4 Ml Syringe) 40 mg SUBCUT Q24H [facility] Last Admin: 04/14/24 19:49 Dose: 40 mg Documented By: LAFLAMTaylor Fluticasone/Umeclidinium/Vilanterol (Fluticasone/Umeclidinium/Vilanterol 100/62.5/25 Blst.W.Dev) 1 puff INHALE RDAILY [facility] Last Admin: 04/15/24 09:08 Dose: Not Given Documented By: DIONNE Non-Admin Reason: Pharm called Glucose (Glucose Gel 15 Gm Gel..Gram.) 15 gm PO Q15M PRN; Protocol PRN Reason: per Hypoglycemia Standing Ord. Guaifenesin/Dextromethorphan (Guaifenesin Dm 200/20/10 Ml 10 Ml Syrup) 10 ml PO Q4H PRN PRN Reason: Cough Last Admin: 04/15/24 11:37 Dose: 10 ml Documented By: ROBERT Dextrose (D10) 250 mls @ 750 mls/hr IV Q15M PRN; Protocol PRN Reason: per Hypoglycemia Standing Ord. Insulin Glargine (Insulin Glargine,Hum.Rec.Anlog 100 Unit/Ml 10 Ml Vial) 20 unit SUBCUT BID [facility] Last Admin: 04/15/24 08:48 Dose: 20 unit Documented By: ERIC Insulin Human Lispro (Insulin Lispro 100 Unit/Ml 3 Ml Vial) 0 unit SUBCUT QIDACHS [facility]; Protocol Last Admin: 04/15/24 11:23 Dose: 2 unit Documented By: ROBERT Levothyroxine Sodium (Levothyroxine Sodium 112 Mcg Tablet) 112 mcg PO DAILY@0600 [facility] Magnesium Hydroxide (Milk Of Magnesia 30 Ml Oral.Susp) 30 ml PO DAILY PRN PRN Reason: Constipation Melatonin (Melatonin 3 Mg Tablet) 6 mg PO BEDTIME PRN PRN Reason: Insomnia Methocarbamol (Methocarbamol 750 Mg Tablet) 750 mg PO Q8H PRN PRN Reason: neuropathy Methylprednisolone Sodium Succinate (Methylprednisolone Sod Succ 40 Mg/Ml Vial) 40 mg IVPUSH Q12H [facility] Last Admin: 04/15/24 08:48 Dose: 40 mg Documented By: ERIC Nicotine (Nicotine 14 Mg Patch.Td24) 14 mg TRANSDERMA DAILY [facility] Last Admin: 04/15/24 08:50 Dose: 14 mg Documented By: ERIC Omeprazole (Omeprazole 20 Mg Capsule.Dr) 20 mg PO BID@0630,1630 [facility] Ondansetron HCl (Ondansetron Hcl 4 Mg/2 Ml Vial) 4 mg IVPUSH Q8H PRN PRN Reason: Nausea and Vomiting Oseltamivir Phosphate (Oseltamivir Phosphate 75 Mg Capsule) 75 mg PO Q12H [facility] Stop: 04/19/24 08:01 Last Admin: 04/15/24 08:48 Dose: 75 mg Documented By: ERIC Oxycodone HCl (Oxycodone Hcl Immed Release 5 Mg Tablet) 7.5 mg PO Q6H PRN PRN Reason: severe pain Last Admin: 04/15/24 09:05 Dose: 7.5 mg Documented By: ERIC Pregabalin (Pregabalin 100 Mg Capsule) 100 mg PO TID [facility] Last Admin: 04/15/24 13:56 Dose: 100 mg Documented By: ROBERT Roflumilast (Roflumilast 500 Mcg Tablet) 500 mcg PO DAILY [facility] Last Admin: 04/15/24 10:20 Dose: Not Given Documented By: ERIC Non-Admin Reason: No Access Sodium Chloride (0.9 % Sodium Chloride Flush 3 Ml Syringe) 3 ml IVFLUSH QSHIFT [facility] Last Admin: 04/15/24 08:51 Dose: 3 ml Documented By: ERIC Labs 04/15/24 06:07 04/15/24 06:07 Labs: Laboratory Results - last 24 hr 04/14/24 04/14/24 04/15/24 18:34 19:40 06:07 MCV 86.9 87.2 MCH 28.5 28.7 MCHC 32.8 32.9 RDW 14.7 14.1 Plt Count 317 268 MPV 10.6 10.6 Immature Gran % (Auto) 0.6 H Cancelled Neut % (Auto) 80.4 H Cancelled Lymph % (Auto) 14.2 L Cancelled [place] % (Auto) 4.6 Cancelled Eos % (Auto) 0.0 Cancelled Baso % (Auto) 0.2 Cancelled Lymph # (Auto) 2.9 Cancelled [place] # (Auto) 0.9 Cancelled Eos # (Auto) 0.0 Cancelled Baso # (Auto) 0.0 Cancelled Abs Immat Gran (auto) 0.13 H Cancelled Absolute Neuts (auto) 16.5 H Cancelled Absolute Nucleated RBC 0.000 0.000 Nucleated RBC % (auto) 0.0 0.0 Neutrophils % (Manual) 97 H Band Neutrophils % 1 L Lymphocytes % (Manual) 2 L Abs Neuts (Manual) 20.1 H Lymphocytes # (Manual) 0.4 L Hypersegmented Neuts PRESENT Platelet Estimate NORMAL Plt Morphology Comment NORMAL RBC Morphology NOTED Acanthocytes (Spur) 3+ (>5) Schistocytes 1+ (0-2) VBG pH 7.46 H VBG pCO2 44 VBG pO2 51 VBG HCO3 31 H VBG O2 Saturation 78.0 VBG Base Excess 7.1 Anion Gap 15 21 H Estim Creat Clear Calc 72.0 82.2 Estimated GFR > 60 > 60 POC Glucose 168 H Random Glucose 144 H 180 H Lactic Acid 1.7 Calcium 8.4 8.0 L Magnesium 3.2 H Troponin I High Sens 8.5 D B-Natriuretic Peptide 48 Influenza Type A (PCR) POSITIVE A Influenza Type B (PCR) NEGATIVE RSV RNA Qual (PCR) POSITIVE A SARS-CoV-2 RNA (RT-PCR) NEGATIVE 04/15/24 04/15/24 07:58 11:08 MCV MCH MCHC RDW Plt Count MPV Immature Gran % (Auto) Neut % (Auto) Lymph % (Auto) [place] % (Auto) Eos % (Auto) Baso % (Auto) Lymph # (Auto) [place] # (Auto) Eos # (Auto) Baso # (Auto) Abs Immat Gran (auto) Absolute Neuts (auto) Absolute Nucleated RBC Nucleated RBC % (auto) Neutrophils % (Manual) Band Neutrophils % Lymphocytes % (Manual) Abs Neuts (Manual) Lymphocytes # (Manual) Hypersegmented Neuts Platelet Estimate Plt Morphology Comment RBC Morphology Acanthocytes (Spur) Schistocytes VBG pH VBG pCO2 VBG pO2 VBG HCO3 VBG O2 Saturation VBG Base Excess Anion Gap Estim Creat Clear Calc Estimated GFR POC Glucose 159 H 175 H Random Glucose Lactic Acid Calcium Magnesium Troponin I High Sens B-Natriuretic Peptide Influenza Type A (PCR) Influenza Type B (PCR) RSV RNA Qual (PCR) SARS-CoV-2 RNA (RT-PCR) Assessment and Plan (1) Influenza A: Status: Acute (2) Acute on chronic hypoxic respiratory failure: Status: Acute (3) COPD exacerbation: Status: Acute Plan Pt is a 63-year-old female with a PMH significant for?CAD, insulin-dependent type 2 diabetes, COPD recently started on 2L home O2, HTN, hypothyroidism, GERD, and gout who presents to the ED with?increased SOB, productive, and difficulty breathing since this morning. Pt will be admitted to the hospital for treatment and further evaluation of acute on chronic hypoxic respiratory failure in the setting of COPD exacerbation from influenza a infection. Acute on chronic hypoxic respiratory failure due to COPD exacerbation from influenza A and recent RSV infection on chronic steroids at baseline initially requiring rescue CPAP to maintain 95% continue treatment with Tamiflu, Solu-Medrol, DuoNebs, and guaifenesin No sepsis: CXR negative for pneumonia, no indication for antibiotics at this time on 2L NC at baseline since last admission Monitor respiratory status CAD Continue aspirin, statin, BB HTN Continue carvedilol Insulin-dependent type 2 diabetes Sliding-scale insulin Lantus dose adjusted 35U bid at baseline, will start with 20u bid and titrate as needed hold trulicity, jardiance Diabetic diet Peripheral neuropathy/chronic pain Continue gabapentin, robaxin, oxycodone Hypothyroidism Continue levothyroxine Gout Continue allopurinol tobacco use NRT smoking cessation advised Full Code DVT Prophylaxis: Lovenox Pt will require ongoing hospitalization of at least two nights for treatment of?acute hypoxic respiratory failure in the setting of acute COPD exacerbation from influenza A infection. Given that pt was recently discharged from hospital for similar symptoms secondary to an RSV infection, pt is at risk for further rapid decompensation without hospital level care for administration of IV steroids, breathing treatments, and supplemental oxygen with close monitoring of respiratory status. Quality Stroke Does the patient have a stroke diagnosis?: No VTE Prior VTE?: No VTE Risk Level:: Medical - moderate - high VTE Device Contraindication: Treatment Not Indicated VTE Drug Contraindication: N/A - Med Ordered
[2024-04-15 16:20] LABS: Glucose, Whole Blood 280 mg/dL (60-115)
[2024-04-15] MEDS: Omeprazole 20 MG CAPSULE.DR PO (16:43)
[2024-04-15 19:57] LABS: Glucose, Whole Blood 228 mg/dL (60-115)
[2024-04-15] MEDS: Enoxaparin Sodium 40 MG/0.4 ML SYRINGE SUBCUT (20:26)
[2024-04-15] MEDS: Montelukast Sodium 10 MG TABLET PO (20:27)
[2024-04-15] MEDS: Atorvastatin Calcium 80 MG TABLET PO (20:27)
[2024-04-15] MEDS: carvediloL 6.25 MG TABLET PO (20:28)
[2024-04-15] MEDS: Aspirin Enteric Coated 81 MG TABLET.DR PO (20:28)
[2024-04-16] VITALS (11 sets, daily range): BP systolic 125–167; BP diastolic 76–91; PULSE 70–89; RESP 16–19; TEMP 36.3–36.8; O2SAT 91–94
[2024-04-16] MEDS: oxyCODONE HCl Immed Release 5 MG TABLET 7.5 MG PO ×3 (00:12→22:26)
[2024-04-16] MEDS: 0.9 % Sodium Chloride Flush 3 ML SYRINGE IVFLUSH ×4 (00:14→21:00)
[2024-04-16] MEDS: guaiFENesin DM 200/20/10 ML 10 ML SYRUP PO ×3 (05:02→21:25)
[2024-04-16] MEDS: Albuterol/Iprat 2.5/0.5MG 3 ML AMPUL.NEB INHALE ×6 (05:06→23:25)
[2024-04-16] MEDS: Omeprazole 20 MG CAPSULE.DR PO ×2 (05:55→16:22)
[2024-04-16] MEDS: Levothyroxine Sodium 112 MCG TABLET PO (05:55)
[2024-04-16 07:45] LABS: Glucose, Whole Blood 219 mg/dL (60-115)
[2024-04-16] MEDS: Roflumilast 500 MCG TABLET PO (08:11)
[2024-04-16] MEDS: allopurinoL 100 MG TABLET PO (08:11)
[2024-04-16] MEDS: carvediloL 6.25 MG TABLET PO ×2 (08:11→21:00)
[2024-04-16] MEDS: Oseltamivir Phosphate 75 MG CAPSULE PO ×2 (08:12→21:00)
[2024-04-16] MEDS: Pregabalin 100 MG CAPSULE PO ×3 (08:12→20:59)
[2024-04-16] MEDS: Nicotine 14 MG PATCH.TD24 TRANSDERMA (08:12)
[2024-04-16] MEDS: methylPREDNISolone Sod Succ 40 MG/ML VIAL IVPUSH ×2 (08:12→20:59)
[2024-04-16] MEDS: Lidocaine 4 % Patch ADH..PATCH 1 PATCH TRANSDERMA (08:13)
[2024-04-16] MEDS: Insulin Glargine,Hum.rec.anlog 100 UNIT/ML 10 ML VIAL 20 UNIT SUBCUT ×2 (08:14→20:59)
[2024-04-16] MEDS: Insulin Lispro 100 UNIT/ML 3 ML VIAL SUBCUT ×4 (08:14→21:06)
--- NOTE | 2024-04-16 08:42 | P.PNIM_ITS ---
Subjective Subjective Date of Service: 04/16/24 Interval History: seen and examined this morning follow up for influenza a, COPD feeling SOB, dry cough; no fever Review of Systems Review of Systems: Yes all other systems are reviewed and are negative Constitutional Constitutional: Denies chills and Denies fever(s) Physical Exam 2 Vital Signs: Vital Signs: Last Vital Signs Temp 98.2 F 04/16/24 08:00 Pulse 79 04/16/24 08:15 Resp 16 04/16/24 08:15 BP 162/91 H 04/16/24 08:00 Pulse Ox 91 L 04/16/24 08:00 O2 Del Method Nasal Cannula 04/16/24 08:00 O2 Flow Rate 2 04/16/24 08:00 BMI result Body Mass Index 26.8 Appearing in no acute distress lung sounds exp wheezing heart regular rate rhythm, clear S1, S2 positive bowel sounds, abdomen is soft, nontender neuro patient is alert x3, no focal deficits Objective Data Active Medications Acetaminophen (Acetaminophen 325 Mg Tablet) 650 mg PO Q6H PRN PRN Reason: Pain, Mild 1-3,fever,headache Albuterol/Ipratropium (Albuterol/Iprat 2.5/0.5mg 3 Ml Ampul.Neb) 3 ml INHALE Q4H PRN PRN Reason: Shortness of Breath/Wheezing Last Admin: 04/16/24 05:06 Dose: 3 ml Documented By: MOISES Albuterol/Ipratropium (Albuterol/Iprat 2.5/0.5mg 3 Ml Ampul.Neb) 3 ml INHALE RQ4H WHILE AWAKE [facility] Last Admin: 04/16/24 08:14 Dose: 3 ml Documented By: ALEX Allopurinol (Allopurinol 100 Mg Tablet) 100 mg PO DAILY [facility] Last Admin: 04/16/24 08:11 Dose: 100 mg Documented By: JOSÉ MIGUEL Aspirin (Aspirin Enteric Coated 81 Mg Tablet.) 81 mg PO BEDTIME [facility] Last Admin: 04/15/24 20:28 Dose: 81 mg Documented By: FRANCISCO J Atorvastatin Calcium (Atorvastatin Calcium 80 Mg Tablet) 80 mg PO BEDTIME [facility]; Protocol Last Admin: 04/15/24 20:27 Dose: 80 mg Documented By: FRANCISCO J Calcium Carbonate (Calcium Carbonate 750 Mg Tab.Chew) 750 mg PO Q4H PRN PRN Reason: Heartburn Carvedilol (Carvedilol 6.25 Mg Tablet) 6.25 mg PO BID [facility]; Protocol Last Admin: 04/16/24 08:11 Dose: 6.25 mg Documented By: JOSÉ MIGUEL Enoxaparin Sodium (Enoxaparin Sodium 40 Mg/0.4 Ml Syringe) 40 mg SUBCUT Q24H [facility] Last Admin: 04/15/24 20:26 Dose: 40 mg Documented By: FRANCISCO J Fluticasone Propionate (Fluticasone Propionate Nasal 16 Gm [place]) 1 spray NOSTRIL-B DAILY PRN PRN Reason: Congestion Fluticasone/Umeclidinium/Vilanterol (Fluticasone/Umeclidinium/Vilanterol 100/62.5/25 Blst.W.Dev) 1 puff INHALE RDAILY [facility] Last Admin: 04/15/24 09:08 Dose: Not Given Documented By: DIONNE Non-Admin Reason: Pharm called Glucose (Glucose Gel 15 Gm Gel..Gram.) 15 gm PO Q15M PRN; Protocol PRN Reason: per Hypoglycemia Standing Ord. Guaifenesin/Dextromethorphan (Guaifenesin Dm 200/20/10 Ml 10 Ml Syrup) 10 ml PO Q4H PRN PRN Reason: Cough Last Admin: 04/16/24 05:02 Dose: 10 ml Documented By: FRANCISCO J Dextrose (D10) 250 mls @ 750 mls/hr IV Q15M PRN; Protocol PRN Reason: per Hypoglycemia Standing Ord. Insulin Glargine (Insulin Glargine,Hum.Rec.Anlog 100 Unit/Ml 10 Ml Vial) 20 unit SUBCUT BID [facility] Last Admin: 04/16/24 08:14 Dose: 20 unit Documented By: JOSÉ MIGUEL Insulin Human Lispro (Insulin Lispro 100 Unit/Ml 3 Ml Vial) 0 unit SUBCUT QIDACHS [facility]; Protocol Last Admin: 04/16/24 08:14 Dose: 4 unit Documented By: JOSÉ MIGUEL Levothyroxine Sodium (Levothyroxine Sodium 112 Mcg Tablet) 112 mcg PO DAILY@0600 [facility] Last Admin: 04/16/24 05:55 Dose: 112 mcg Documented By: FRANCISCO J Lidocaine (Lidocaine 4 % Patch Adh..Patch) 1 patch TRANSDERMA DAILY [facility] Last Admin: 04/16/24 08:13 Dose: 1 patch Documented By: JOSÉ MIGUEL Magnesium Hydroxide (Milk Of Magnesia 30 Ml Oral.Susp) 30 ml PO DAILY PRN PRN Reason: Constipation Melatonin (Melatonin 3 Mg Tablet) 6 mg PO BEDTIME PRN PRN Reason: Insomnia Methocarbamol (Methocarbamol 750 Mg Tablet) 750 mg PO Q8H PRN PRN Reason: neuropathy Methylprednisolone Sodium Succinate (Methylprednisolone Sod Succ 40 Mg/Ml Vial) 40 mg IVPUSH Q12H [facility] Last Admin: 04/16/24 08:12 Dose: 40 mg Documented By: JOSÉ MIGUEL Montelukast Sodium (Montelukast Sodium 10 Mg Tablet) 10 mg PO BEDTIME [facility] Last Admin: 04/15/24 20:27 Dose: 10 mg Documented By: FRANCISCO J Nicotine (Nicotine 14 Mg Patch.Td24) 14 mg TRANSDERMA DAILY [facility] Last Admin: 04/16/24 08:12 Dose: 14 mg Documented By: JOSÉ MIGUEL Omeprazole (Omeprazole 20 Mg Capsule.Dr) 20 mg PO BID@0630,1630 [facility] Last Admin: 04/16/24 05:55 Dose: 20 mg Documented By: FRANCISCO J Ondansetron HCl (Ondansetron Hcl 4 Mg/2 Ml Vial) 4 mg IVPUSH Q8H PRN PRN Reason: Nausea and Vomiting Oseltamivir Phosphate (Oseltamivir Phosphate 75 Mg Capsule) 75 mg PO Q12H [facility] Stop: 04/19/24 08:01 Last Admin: 04/16/24 08:12 Dose: 75 mg Documented By: JOSÉ MIGUEL Oxycodone HCl (Oxycodone Hcl Immed Release 5 Mg Tablet) 7.5 mg PO Q6H PRN PRN Reason: severe pain Last Admin: 04/16/24 00:12 Dose: 7.5 mg Documented By: FRANCISCO J Pregabalin (Pregabalin 100 Mg Capsule) 100 mg PO TID [facility] Last Admin: 04/16/24 08:12 Dose: 100 mg Documented By: JOSÉ MIGUEL Roflumilast (Roflumilast 500 Mcg Tablet) 500 mcg PO DAILY [facility] Last Admin: 04/16/24 08:11 Dose: 500 mcg Documented By: JOSÉ MIGUEL Sodium Chloride (0.9 % Sodium Chloride Flush 3 Ml Syringe) 3 ml IVFLUSH QSHIFT [facility] Last Admin: 04/16/24 08:25 Dose: 3 ml Documented By: JOSÉ MIGUEL Labs 04/15/24 06:07 04/15/24 06:07 Labs: Laboratory Results - last 24 hr 04/15/24 04/15/24 04/15/24 11:08 16:16 19:10 POC Glucose 175 H 280 H 228 H 04/16/24 07:25 POC Glucose 219 H Microbiology Microbiology Results: Microbiology 04/14/24 19:10 Blood Culture - Preliminary Blood - Venous No growth after 24 hours. 04/14/24 18:34 Blood Culture - Preliminary Blood - Venous No growth after 24 hours. Assessment and Plan (1) Influenza A: Status: Acute (2) Acute on chronic hypoxic respiratory failure: Status: Acute (3) COPD exacerbation: Status: Acute Plan Pt is a 63-year-old female with a PMH significant for?CAD, insulin-dependent type 2 diabetes, COPD recently started on 2L home O2, HTN, hypothyroidism, GERD, and gout who presents to the ED with?increased SOB, productive, and difficulty breathing since this morning. Pt will be admitted to the hospital for treatment and further evaluation of acute on chronic hypoxic respiratory failure in the setting of COPD exacerbation from influenza a infection. Acute on chronic hypoxic respiratory failure due to COPD exacerbation from influenza A and recent RSV infection on chronic steroids at baseline initially requiring rescue CPAP to maintain 95% continue treatment with Tamiflu, Solu-Medrol, DuoNebs, and guaifenesin No sepsis: CXR negative for pneumonia, no indication for antibiotics at this time on 2L NC at baseline since last admission Monitor respiratory status CAD Continue aspirin, statin, BB HTN Continue carvedilol Insulin-dependent type 2 diabetes Sliding-scale insulin Lantus dose adjusted 35U bid at baseline, will start with 20u bid and titrate as needed hold trulicity, jardiance Diabetic diet Peripheral neuropathy/chronic pain Continue gabapentin, robaxin, oxycodone Hypothyroidism Continue levothyroxine Gout Continue allopurinol tobacco use NRT smoking cessation advised Full Code DVT Prophylaxis: Lovenox Quality Stroke Does the patient have a stroke diagnosis?: No VTE Prior VTE?: No VTE Risk Level:: Medical - moderate - high VTE Device Contraindication: Treatment Not Indicated VTE Drug Contraindication: N/A - Med Ordered
[2024-04-16] MEDS: Fluticasone/Umeclidinium/Vilanterol 100/62.5/25 BLST.W.DEV 1 PUFF INHALE (09:12)
[2024-04-16 11:18] LABS: Glucose, Whole Blood 229 mg/dL (60-115)
[2024-04-16 16:42] LABS: Glucose, Whole Blood 284 mg/dL (60-115)
[2024-04-16] MEDS: Enoxaparin Sodium 40 MG/0.4 ML SYRINGE SUBCUT (20:58)
[2024-04-16] MEDS: Atorvastatin Calcium 80 MG TABLET PO (20:59)
[2024-04-16] MEDS: Montelukast Sodium 10 MG TABLET PO (20:59)
[2024-04-16] MEDS: Aspirin Enteric Coated 81 MG TABLET.DR PO (21:00)
[2024-04-16 21:17] LABS: Glucose, Whole Blood 205 mg/dL (60-115)
[2024-04-16] MEDS: Milk of Magnesia 30 ML ORAL.SUSP PO (21:25)
[2024-04-17] VITALS (9 sets, daily range): BP systolic 139–162; BP diastolic 67–85; PULSE 73–87; RESP 16–20; TEMP 36.2–36.9; O2SAT 92–96
[2024-04-17] MEDS: Omeprazole 20 MG CAPSULE.DR PO ×2 (05:52→15:56)
[2024-04-17] MEDS: Levothyroxine Sodium 112 MCG TABLET PO (05:52)
[2024-04-17 07:50] LABS: Glucose, Whole Blood 227 mg/dL (60-115)
[2024-04-17] MEDS: Fluticasone/Umeclidinium/Vilanterol 100/62.5/25 BLST.W.DEV 1 PUFF INHALE (07:51)
[2024-04-17] MEDS: Albuterol/Iprat 2.5/0.5MG 3 ML AMPUL.NEB INHALE ×5 (07:51→23:58)
--- NOTE | 2024-04-17 08:15 | HO.PM.IMPN ---
Subjective Subjective Date of Service: 04/17/24 Interval History: seen and examined this morning follow up for influenza a, COPD feeling SOB, dry cough; no fever Review of Systems Review of Systems: Yes all other systems are reviewed and are negative Constitutional Constitutional: Denies chills and Denies fever(s) Physical Exam Vital Signs: Vital Signs: Last Vital Signs Temp 97.9 F 04/17/24 03:45 Pulse 84 04/17/24 07:52 Resp 18 04/17/24 07:52 BP 139/67 04/17/24 03:45 Pulse Ox 92 04/17/24 03:45 O2 Del Method Nasal Cannula 04/17/24 03:45 O2 Flow Rate 3 04/16/24 20:00 BMI result Body Mass Index 26.8 Appearing in no acute distress lung sounds exp wheezing rate rhythm, clear S1, S2 positive bowel sounds, abdomen is soft, nontender neuro patient is alert x3, no focal deficits Objective Data Active Medications Acetaminophen (Acetaminophen 325 Mg Tablet) 650 mg PO Q6H PRN PRN Reason: Pain, Mild 1-3,fever,headache Albuterol/Ipratropium (Albuterol/Iprat 2.5/0.5mg 3 Ml Ampul.Neb) 3 ml INHALE Q4H PRN PRN Reason: Shortness of Breath/Wheezing Last Admin: 04/16/24 23:25 Dose: 3 ml Documented By: JADA Albuterol/Ipratropium (Albuterol/Iprat 2.5/0.5mg 3 Ml Ampul.Neb) 3 ml INHALE RQ4H WHILE AWAKE [facility] Last Admin: 04/17/24 07:51 Dose: 3 ml Documented By: LATRICE Allopurinol (Allopurinol 100 Mg Tablet) 100 mg PO DAILY [facility] Last Admin: 04/16/24 08:11 Dose: 100 mg Documented By: JOSÉ MIGUEL Aspirin (Aspirin Enteric Coated 81 Mg Tablet.) 81 mg PO BEDTIME [facility] Last Admin: 04/16/24 21:00 Dose: 81 mg Documented By: TRISTAN Atorvastatin Calcium (Atorvastatin Calcium 80 Mg Tablet) 80 mg PO BEDTIME [facility]; Protocol Last Admin: 04/16/24 20:59 Dose: 80 mg Documented By: TRISTAN Calcium Carbonate (Calcium Carbonate 750 Mg Tab.Chew) 750 mg PO Q4H PRN PRN Reason: Heartburn Carvedilol (Carvedilol 6.25 Mg Tablet) 6.25 mg PO BID [facility]; Protocol Last Admin: 04/16/24 21:00 Dose: 6.25 mg Documented By: TRISTAN Enoxaparin Sodium (Enoxaparin Sodium 40 Mg/0.4 Ml Syringe) 40 mg SUBCUT Q24H [facility] Last Admin: 04/16/24 20:58 Dose: 40 mg Documented By: TRISTAN Fluticasone Propionate (Fluticasone Propionate Nasal 16 Gm [place]) 1 spray NOSTRIL-B DAILY PRN PRN Reason: Congestion Fluticasone/Umeclidinium/Vilanterol (Fluticasone/Umeclidinium/Vilanterol 100/62.5/25 Blst.W.Dev) 1 puff INHALE RDAILY [facility] Last Admin: 04/17/24 07:51 Dose: 1 puff Documented By: LATRICE Glucose (Glucose Gel 15 Gm Gel..Gram.) 15 gm PO Q15M PRN; Protocol PRN Reason: per Hypoglycemia Standing Ord. Guaifenesin/Dextromethorphan (Guaifenesin Dm 200/20/10 Ml 10 Ml Syrup) 10 ml PO Q4H PRN PRN Reason: Cough Last Admin: 04/16/24 21:25 Dose: 10 ml Documented By: TRISTAN Dextrose (D10) 250 mls @ 750 mls/hr IV Q15M PRN; Protocol PRN Reason: per Hypoglycemia Standing Ord. Insulin Glargine (Insulin Glargine,Hum.Rec.Anlog 100 Unit/Ml 10 Ml Vial) 20 unit SUBCUT BID [facility] Last Admin: 04/16/24 20:59 Dose: 20 unit Documented By: TRISTAN Insulin Human Lispro (Insulin Lispro 100 Unit/Ml 3 Ml Vial) 0 unit SUBCUT QIDACHS [facility]; Protocol Last Admin: 04/16/24 21:06 Dose: 6 unit Documented By: TRISTAN Levothyroxine Sodium (Levothyroxine Sodium 112 Mcg Tablet) 112 mcg PO DAILY@0600 [facility] Last Admin: 04/17/24 05:52 Dose: 112 mcg Documented By: TRISTAN Lidocaine (Lidocaine 4 % Patch Adh..Patch) 1 patch TRANSDERMA DAILY [facility] Last Admin: 04/16/24 08:13 Dose: 1 patch Documented By: JOSÉ MIGUEL Magnesium Hydroxide (Milk Of Magnesia 30 Ml Oral.Susp) 30 ml PO DAILY PRN PRN Reason: Constipation Last Admin: 04/16/24 21:25 Dose: 30 ml Documented By: TRISTAN Melatonin (Melatonin 3 Mg Tablet) 6 mg PO BEDTIME PRN PRN Reason: Insomnia Methocarbamol (Methocarbamol 750 Mg Tablet) 750 mg PO Q8H PRN PRN Reason: neuropathy Methylprednisolone Sodium Succinate (Methylprednisolone Sod Succ 40 Mg/Ml Vial) 40 mg IVPUSH Q12H [facility] Last Admin: 04/16/24 20:59 Dose: 40 mg Documented By: TRISTAN Montelukast Sodium (Montelukast Sodium 10 Mg Tablet) 10 mg PO BEDTIME [facility] Last Admin: 04/16/24 20:59 Dose: 10 mg Documented By: TRISTAN Nicotine (Nicotine 14 Mg Patch.Td24) 14 mg TRANSDERMA DAILY [facility] Last Admin: 04/16/24 08:12 Dose: 14 mg Documented By: JOSÉ MIGUEL Omeprazole (Omeprazole 20 Mg Capsule.) 20 mg PO BID@0630,1630 [facility] Last Admin: 04/17/24 05:52 Dose: 20 mg Documented By: TRISTAN Ondansetron HCl (Ondansetron Hcl 4 Mg/2 Ml Vial) 4 mg IVPUSH Q8H PRN PRN Reason: Nausea and Vomiting Oseltamivir Phosphate (Oseltamivir Phosphate 75 Mg Capsule) 75 mg PO Q12H [facility] Stop: 04/19/24 08:01 Last Admin: 04/16/24 21:00 Dose: 75 mg Documented By: TRISTAN Oxycodone HCl (Oxycodone Hcl Immed Release 5 Mg Tablet) 7.5 mg PO Q6H PRN PRN Reason: severe pain Last Admin: 04/16/24 22:26 Dose: 7.5 mg Documented By: TRISTAN Pregabalin (Pregabalin 100 Mg Capsule) 100 mg PO TID [facility] Last Admin: 04/16/24 20:59 Dose: 100 mg Documented By: TRISTAN Roflumilast (Roflumilast 500 Mcg Tablet) 500 mcg PO DAILY [facility] Last Admin: 04/16/24 08:11 Dose: 500 mcg Documented By: JOSÉ MIGUEL Sodium Chloride (0.9 % Sodium Chloride Flush 3 Ml Syringe) 3 ml IVFLUSH QSHIFT [facility] Last Admin: 04/16/24 21:00 Dose: 3 ml Documented By: TRISTAN Labs 04/15/24 06:07 04/15/24 06:07 Labs: Laboratory Results - last 24 hr 04/16/24 04/16/24 04/16/24 11:11 16:12 20:41 POC Glucose 229 H 284 H 205 H 04/17/24 07:46 POC Glucose 227 H Microbiology Microbiology Results: Microbiology 04/14/24 19:10 Blood Culture - Preliminary Blood - Venous No growth after 48 hours. 04/14/24 18:34 Blood Culture - Preliminary Blood - Venous No growth after 48 hours. Assessment and Plan (1) Influenza A: Status: Acute (2) Acute on chronic hypoxic respiratory failure: Status: Acute (3) COPD exacerbation: Status: Acute Plan Pt is a 63-year-old female with a PMH significant for?CAD, insulin-dependent type 2 diabetes, COPD recently started on 2L home O2, HTN, hypothyroidism, GERD, and gout who presents to the ED with?increased SOB, productive, and difficulty breathing since this morning. Pt will be admitted to the hospital for treatment and further evaluation of acute on chronic hypoxic respiratory failure in the setting of COPD exacerbation from influenza a infection. Acute on chronic hypoxic respiratory failure due to COPD exacerbation from influenza A and recent RSV infection on chronic steroids at baseline initially requiring rescue CPAP to maintain 95% continue treatment with Tamiflu, Solu-Medrol, DuoNebs, and guaifenesin No sepsis: CXR negative for pneumonia, no indication for antibiotics at this time on 2L NC at baseline since last admission still wheezing CAD Continue aspirin, statin, BB HTN Continue carvedilol Insulin-dependent type 2 diabetes Sliding-scale insulin Lantus dose adjusted 35U bid at baseline, will start with 20u bid and titrate as needed hold trulicity, jardiance Diabetic diet Peripheral neuropathy/chronic pain Continue gabapentin, robaxin, oxycodone Hypothyroidism Continue levothyroxine Gout Continue allopurinol tobacco use NRT smoking cessation advised Full Code DVT Prophylaxis: Lovenox Quality Stroke Does the patient have a stroke diagnosis?: No VTE Prior VTE?: No VTE Risk Level:: Medical - moderate - high VTE Device Contraindication: Treatment Not Indicated VTE Drug Contraindication: N/A - Med Ordered
[2024-04-17] MEDS: Insulin Lispro 100 UNIT/ML 3 ML VIAL SUBCUT ×4 (08:40→21:26)
[2024-04-17] MEDS: Nicotine 14 MG PATCH.TD24 TRANSDERMA (08:41)
[2024-04-17] MEDS: Insulin Glargine,Hum.rec.anlog 100 UNIT/ML 10 ML VIAL 20 UNIT SUBCUT ×2 (08:41→21:25)
[2024-04-17] MEDS: methylPREDNISolone Sod Succ 40 MG/ML VIAL IVPUSH ×2 (08:41→21:26)
[2024-04-17] MEDS: carvediloL 6.25 MG TABLET PO ×2 (08:42→21:25)
[2024-04-17] MEDS: Pregabalin 100 MG CAPSULE PO ×3 (08:42→21:25)
[2024-04-17] MEDS: Docusate Sodium 100 MG CAPSULE PO ×2 (08:42→21:25)
[2024-04-17] MEDS: allopurinoL 100 MG TABLET PO (08:42)
[2024-04-17] MEDS: Roflumilast 500 MCG TABLET PO (08:42)
[2024-04-17] MEDS: Sennosides 8.6 MG TABLET 17.2 MG PO (08:43)
[2024-04-17] MEDS: Oseltamivir Phosphate 75 MG CAPSULE PO ×2 (08:44→21:27)
[2024-04-17] MEDS: 0.9 % Sodium Chloride Flush 3 ML SYRINGE IVFLUSH ×3 (08:44→21:27)
[2024-04-17] MEDS: oxyCODONE HCl Immed Release 5 MG TABLET 7.5 MG PO ×3 (09:24→22:24)
[2024-04-17 11:28] LABS: Glucose, Whole Blood 241 mg/dL (60-115)
[2024-04-17] MEDS: guaiFENesin DM 200/20/10 ML 10 ML SYRUP PO ×2 (12:26→22:21)
[2024-04-17] MEDS: Acetaminophen 325 MG TABLET 650 MG PO ×2 (15:58→22:21)
[2024-04-17 16:27] LABS: Glucose, Whole Blood 320 mg/dL (60-115)
[2024-04-17 16:27] LABS: Glucose, Whole Blood 371 mg/dL (60-115)
[2024-04-17 20:05] LABS: Glucose, Whole Blood 320 mg/dL (60-115)
[2024-04-17] MEDS: Atorvastatin Calcium 80 MG TABLET PO (21:24)
[2024-04-17] MEDS: Montelukast Sodium 10 MG TABLET PO (21:24)
[2024-04-17] MEDS: Aspirin Enteric Coated 81 MG TABLET.DR PO (21:25)
[2024-04-17] MEDS: Enoxaparin Sodium 40 MG/0.4 ML SYRINGE SUBCUT (21:27)
[2024-04-18] VITALS (9 sets, daily range): BP systolic 134–182; BP diastolic 68–84; PULSE 72–80; RESP 14–20; TEMP 36.3–36.9; O2SAT 93–96
[2024-04-18] MEDS: Albuterol/Iprat 2.5/0.5MG 3 ML AMPUL.NEB INHALE ×5 (05:13→20:15)
[2024-04-18] MEDS: Omeprazole 20 MG CAPSULE.DR PO ×2 (05:35→17:09)
[2024-04-18] MEDS: Levothyroxine Sodium 112 MCG TABLET PO (05:35)
[2024-04-18] MEDS: guaiFENesin DM 200/20/10 ML 10 ML SYRUP PO ×3 (05:35→20:43)
[2024-04-18] MEDS: oxyCODONE HCl Immed Release 5 MG TABLET 7.5 MG PO ×3 (05:37→20:45)
[2024-04-18] MEDS: Acetaminophen 325 MG TABLET 650 MG PO ×3 (05:39→20:47)
[2024-04-18 07:23] LABS: Glucose, Whole Blood 369 mg/dL (60-115)
[2024-04-18] MEDS: Insulin Lispro 100 UNIT/ML 3 ML VIAL SUBCUT ×4 (08:07→21:54)
[2024-04-18] MEDS: Insulin Glargine,Hum.rec.anlog 100 UNIT/ML 10 ML VIAL 20 UNIT SUBCUT (08:07)
[2024-04-18] MEDS: Oseltamivir Phosphate 75 MG CAPSULE PO ×2 (08:08→20:44)
[2024-04-18] MEDS: Roflumilast 500 MCG TABLET PO (08:08)
[2024-04-18] MEDS: Docusate Sodium 100 MG CAPSULE PO ×2 (08:08→20:44)
[2024-04-18] MEDS: carvediloL 6.25 MG TABLET PO ×2 (08:08→20:44)
[2024-04-18] MEDS: allopurinoL 100 MG TABLET PO (08:08)
[2024-04-18] MEDS: Pregabalin 100 MG CAPSULE PO ×3 (08:08→20:44)
[2024-04-18] MEDS: Sennosides 8.6 MG TABLET 17.2 MG PO (08:09)
[2024-04-18] MEDS: predniSONE 20 MG TABLET 40 MG PO (08:09)
[2024-04-18] MEDS: Nicotine 14 MG PATCH.TD24 TRANSDERMA (08:09)
[2024-04-18] MEDS: Lidocaine 4 % Patch ADH..PATCH 1 PATCH TRANSDERMA (08:11)
[2024-04-18] MEDS: 0.9 % Sodium Chloride Flush 3 ML SYRINGE IVFLUSH ×3 (08:14→20:51)
[2024-04-18] MEDS: Fluticasone/Umeclidinium/Vilanterol 100/62.5/25 BLST.W.DEV 1 PUFF INHALE (08:34)
--- NOTE | 2024-04-18 09:37 | HO.PM.IMPN ---
Subjective Subjective Date of Service: 04/18/24 Interval History: seen and examined this morning follow up for influenza a, COPD feeling SOB, dry cough; no fever Review of Systems Review of Systems: Yes all other systems are reviewed and are negative Constitutional Constitutional: Denies chills and Denies fever(s) Physical Exam Vital Signs: Vital Signs: Last Vital Signs Temp 97.3 F 04/18/24 07:14 Pulse 73 04/18/24 08:35 Resp 18 04/18/24 08:35 BP 159/73 H 04/18/24 07:14 Pulse Ox 95 04/18/24 07:14 O2 Del Method Nasal Cannula 04/18/24 07:14 O2 Flow Rate 2 04/18/24 07:14 BMI result Body Mass Index 26.8 Appearing in no acute distress lung sounds exp wheezing heart regular rate rhythm, clear S1, S2 positive bowel sounds, abdomen is soft, nontender neuro patient is alert x3, no focal deficits Objective Data Active Medications Acetaminophen (Acetaminophen 325 Mg Tablet) 650 mg PO Q6H PRN PRN Reason: Pain, Mild 1-3,fever,headache Last Admin: 04/18/24 05:39 Dose: 650 mg Documented By: BIJU Albuterol/Ipratropium (Albuterol/Iprat 2.5/0.5mg 3 Ml Ampul.Neb) 3 ml INHALE Q4H PRN PRN Reason: Shortness of Breath/Wheezing Last Admin: 04/18/24 05:13 Dose: 3 ml Documented By: JADA Albuterol/Ipratropium (Albuterol/Iprat 2.5/0.5mg 3 Ml Ampul.Neb) 3 ml INHALE RQ4H WHILE AWAKE [facility] Last Admin: 04/18/24 08:34 Dose: 3 ml Documented By: EMILIO Allopurinol (Allopurinol 100 Mg Tablet) 100 mg PO DAILY [facility] Last Admin: 04/18/24 08:08 Dose: 100 mg Documented By: ALYCE Aspirin (Aspirin Enteric Coated 81 Mg Tablet.) 81 mg PO BEDTIME [facility] Last Admin: 04/17/24 21:25 Dose: 81 mg Documented By: BIJU Atorvastatin Calcium (Atorvastatin Calcium 80 Mg Tablet) 80 mg PO BEDTIME [facility]; Protocol Last Admin: 04/17/24 21:24 Dose: 80 mg Documented By: BIJU Calcium Carbonate (Calcium Carbonate 750 Mg Tab.Chew) 750 mg PO Q4H PRN PRN Reason: Heartburn Carvedilol (Carvedilol 6.25 Mg Tablet) 6.25 mg PO BID [facility]; Protocol Last Admin: 04/18/24 08:08 Dose: 6.25 mg Documented By: BROJonathan Docusate Sodium (Docusate Sodium 100 Mg Capsule) 100 mg PO BID [facility] Last Admin: 04/18/24 08:08 Dose: 100 mg Documented By: ALYCE Enoxaparin Sodium (Enoxaparin Sodium 40 Mg/0.4 Ml Syringe) 40 mg SUBCUT Q24H [facility] Last Admin: 04/17/24 21:27 Dose: 40 mg Documented By: BIJU Fluticasone Propionate (Fluticasone Propionate Nasal 16 Gm [place]) 1 spray NOSTRIL-B DAILY PRN PRN Reason: Congestion Fluticasone/Umeclidinium/Vilanterol (Fluticasone/Umeclidinium/Vilanterol 100/62.5/25 Blst.W.Dev) 1 puff INHALE RDAILY [facility] Last Admin: 04/18/24 08:34 Dose: 1 puff Documented By: EMILIO Glucose (Glucose Gel 15 Gm Gel..Gram.) 15 gm PO Q15M PRN; Protocol PRN Reason: per Hypoglycemia Standing Ord. Guaifenesin/Dextromethorphan (Guaifenesin Dm 200/20/10 Ml 10 Ml Syrup) 10 ml PO Q4H PRN PRN Reason: Cough Last Admin: 04/18/24 05:35 Dose: 10 ml Documented By: BIJU Dextrose (D10) 250 mls @ 750 mls/hr IV Q15M PRN; Protocol PRN Reason: per Hypoglycemia Standing Ord. Insulin Glargine (Insulin Glargine,Hum.Rec.Anlog 100 Unit/Ml 10 Ml Vial) 20 unit SUBCUT BID [facility] Last Admin: 04/18/24 08:07 Dose: 20 unit Documented By: ALYCE Insulin Human Lispro (Insulin Lispro 100 Unit/Ml 3 Ml Vial) 0 unit SUBCUT QIDACHS [facility]; Protocol Last Admin: 04/18/24 08:07 Dose: 10 unit Documented By: ALYCE Levothyroxine Sodium (Levothyroxine Sodium 112 Mcg Tablet) 112 mcg PO DAILY@0600 [facility] Last Admin: 04/18/24 05:35 Dose: 112 mcg Documented By: BIJU Lidocaine (Lidocaine 4 % Patch Adh..Patch) 1 patch TRANSDERMA DAILY [facility] Last Admin: 04/18/24 08:11 Dose: 1 patch Documented By: ALYCE Magnesium Hydroxide (Milk Of Magnesia 30 Ml Oral.Susp) 30 ml PO DAILY PRN PRN Reason: Constipation Last Admin: 04/16/24 21:25 Dose: 30 ml Documented By: TRISTAN Melatonin (Melatonin 3 Mg Tablet) 6 mg PO BEDTIME PRN PRN Reason: Insomnia Methocarbamol (Methocarbamol 750 Mg Tablet) 750 mg PO Q8H PRN PRN Reason: neuropathy Montelukast Sodium (Montelukast Sodium 10 Mg Tablet) 10 mg PO BEDTIME [facility] Last Admin: 04/17/24 21:24 Dose: 10 mg Documented By: BIJU Nicotine (Nicotine 14 Mg Patch.Td24) 14 mg TRANSDERMA DAILY [facility] Last Admin: 04/18/24 08:09 Dose: 14 mg Documented By: ALYCE Omeprazole (Omeprazole 20 Mg Capsule.Dr) 20 mg PO BID@0630,1630 [facility] Last Admin: 04/18/24 05:35 Dose: 20 mg Documented By: BIJU Ondansetron HCl (Ondansetron Hcl 4 Mg/2 Ml Vial) 4 mg IVPUSH Q8H PRN PRN Reason: Nausea and Vomiting Oseltamivir Phosphate (Oseltamivir Phosphate 75 Mg Capsule) 75 mg PO Q12H [facility] Stop: 04/19/24 08:01 Last Admin: 04/18/24 08:08 Dose: 75 mg Documented By: ALYCE Oxycodone HCl (Oxycodone Hcl Immed Release 5 Mg Tablet) 7.5 mg PO Q6H PRN PRN Reason: severe pain Last Admin: 04/18/24 05:37 Dose: 7.5 mg Documented By: BIJU Prednisone (Prednisone 20 Mg Tablet) 40 mg PO DAILY [facility] Last Admin: 04/18/24 08:09 Dose: 40 mg Documented By: ALYCE Pregabalin (Pregabalin 100 Mg Capsule) 100 mg PO TID [facility] Last Admin: 04/18/24 08:08 Dose: 100 mg Documented By: ALYCE Roflumilast (Roflumilast 500 Mcg Tablet) 500 mcg PO DAILY [facility] Last Admin: 04/18/24 08:08 Dose: 500 mcg Documented By: ALYCE Senna (Sennosides 8.6 Mg Tablet) 17.2 mg PO DAILY [facility] Last Admin: 04/18/24 08:09 Dose: 17.2 mg Documented By: ALYCE Sodium Chloride (0.9 % Sodium Chloride Flush 3 Ml Syringe) 3 ml IVFLUSH QSHIFT [facility] Last Admin: 04/18/24 08:14 Dose: 3 ml Documented By: ALYCE Labs 04/15/24 06:07 04/15/24 06:07 Labs: Laboratory Results - last 24 hr 04/17/24 04/17/24 04/17/24 11:23 16:07 16:09 POC Glucose 241 H 371 H* 320 H 04/17/24 04/18/24 19:33 07:17 POC Glucose 320 H 369 H* Assessment and Plan (1) Influenza A: Status: Acute (2) Acute on chronic hypoxic respiratory failure: Status: Acute (3) COPD exacerbation: Status: Acute Plan Pt is a 63-year-old female with a PMH significant for?CAD, insulin-dependent type 2 diabetes, COPD recently started on 2L home O2, HTN, hypothyroidism, GERD, and gout who presents to the ED with?increased SOB, productive, and difficulty breathing since this morning. Pt will be admitted to the hospital for treatment and further evaluation of acute on chronic hypoxic respiratory failure in the setting of COPD exacerbation from influenza a infection. Acute on chronic hypoxic respiratory failure due to COPD exacerbation from influenza A and recent RSV infection on chronic steroids at baseline initially requiring rescue CPAP to maintain 95% continue treatment with Tamiflu, Solu-Medrol, DuoNebs, and guaifenesin No sepsis: CXR negative for pneumonia, no indication for antibiotics at this time on 2L [place] at baseline since last admission still wheezing CAD Continue aspirin, statin, BB HTN Continue carvedilol Insulin-dependent type 2 diabetes Sliding-scale insulin Lantus dose adjusted 35U bid at baseline, will start with 20u bid and titrate as needed hold trulicity, jardiance Diabetic diet Peripheral neuropathy/chronic pain Continue gabapentin, robaxin, oxycodone Hypothyroidism Continue levothyroxine Gout Continue allopurinol tobacco use NRT smoking cessation advised Full Code DVT Prophylaxis: Lovenox Quality Stroke Does the patient have a stroke diagnosis?: No VTE Prior VTE?: No VTE Risk Level:: Medical - moderate - high VTE Device Contraindication: Treatment Not Indicated VTE Drug Contraindication: N/A - Med Ordered
[2024-04-18 11:38] LABS: Glucose, Whole Blood 307 mg/dL (60-115)
--- NOTE | 2024-04-18 15:44 | MHC.CM.PN ---
per rounds pt will likely dc tomorrow home w/vna
[2024-04-18 17:08] LABS: Glucose, Whole Blood 197 mg/dL (60-115)
[2024-04-18] MEDS: Aspirin Enteric Coated 81 MG TABLET.DR PO (20:44)
[2024-04-18] MEDS: Atorvastatin Calcium 80 MG TABLET PO (20:44)
[2024-04-18] MEDS: Montelukast Sodium 10 MG TABLET PO (20:44)
[2024-04-18] MEDS: Enoxaparin Sodium 40 MG/0.4 ML SYRINGE SUBCUT (20:50)
[2024-04-18 21:38] LABS: Glucose, Whole Blood 301 mg/dL (60-115)
[2024-04-18] MEDS: Insulin Glargine,Hum.rec.anlog 100 UNIT/ML 10 ML VIAL 35 UNIT SUBCUT (21:53)
[2024-04-18] MEDS: Milk of Magnesia 30 ML ORAL.SUSP PO (22:21)
[2024-04-19] MEDS: Albuterol/Iprat 2.5/0.5MG 3 ML AMPUL.NEB INHALE ×2 (00:14→07:42)
[2024-04-19 00:15] VITALS: PULSE 78; RESP 14; O2SAT 98
[2024-04-19 03:51] VITALS: BP 150/71; PULSE 68; RESP 18; TEMP 36.9; O2SAT 94
[2024-04-19] MEDS: Omeprazole 20 MG CAPSULE.DR PO (06:25)
[2024-04-19] MEDS: Levothyroxine Sodium 112 MCG TABLET PO (06:25)
[2024-04-19] MEDS: Fluticasone/Umeclidinium/Vilanterol 100/62.5/25 BLST.W.DEV 1 PUFF INHALE (07:42)
[2024-04-19 07:45] VITALS: PULSE 80; RESP 14; O2SAT 95
[2024-04-19 07:49] LABS: Glucose, Whole Blood 93 mg/dL (60-115)
[2024-04-19 08:00] VITALS: BP 151/76; PULSE 74; RESP 18; TEMP 36.4; O2SAT 97
[2024-04-19] MEDS: predniSONE 20 MG TABLET 40 MG PO (08:09)
[2024-04-19] MEDS: Roflumilast 500 MCG TABLET PO (08:09)
[2024-04-19] MEDS: allopurinoL 100 MG TABLET PO (08:09)
[2024-04-19] MEDS: Oseltamivir Phosphate 75 MG CAPSULE PO (08:09)
[2024-04-19] MEDS: Docusate Sodium 100 MG CAPSULE PO (08:09)
[2024-04-19] MEDS: carvediloL 6.25 MG TABLET PO (08:09)
[2024-04-19] MEDS: Pregabalin 100 MG CAPSULE PO (08:09)
[2024-04-19] MEDS: Sennosides 8.6 MG TABLET 17.2 MG PO (08:09)
[2024-04-19] MEDS: Acetaminophen 325 MG TABLET 650 MG PO (08:15)
[2024-04-19] MEDS: oxyCODONE HCl Immed Release 5 MG TABLET 7.5 MG PO (08:16)
[2024-04-19] MEDS: Nicotine 14 MG PATCH.TD24 TRANSDERMA (08:18)
[2024-04-19] MEDS: 0.9 % Sodium Chloride Flush 3 ML SYRINGE IVFLUSH (08:26)
--- NOTE | 2024-04-19 09:00 | MHC.CM.PN ---
pt dcd home with [facility]
[2024-04-19 09:45] VITALS: BP 154/74; PULSE 82; RESP 20; TEMP 36.4; O2SAT 94
--- NOTE | 2024-04-19 15:10 | PM.DS ---
DS: Providers Provider Date of Service: 04/19/24 Date of admission: 04/14/24 19:38 Date of discharge: 04/19/24 Primary care physician: Bobby David MD DS: Diagnosis Discharge Diagnosis (1) Influenza A: Status: Resolved (2) Acute on chronic hypoxic respiratory failure: Status: Resolved (3) COPD exacerbation: Status: Resolved DS: Summary Hospital Course Hospital Course: From initial HPI: 63-year-old female with a PMH significant for CAD, insulin-dependent type 2 diabetes COPD recently started on home 02 (2L NC), HTN, hypothyroidism, GERD, and gout who presents to the ED with increased SOB and productive cough, SOB, and difficulty breathing since this morning. Pt states had been staying in her room mostly with the use of her supplemental 02, and developed a cough overnight, productive of whitish sputum, which worsened this am and she was unable to catch her breath. Patient was discharged from [facility] on 04/11/24 with prescriptions for doxycycline and prednisone. Has tested negative for COVID. Pt also complains of right shoulder pain radiating to right ribs associated with cough and inspiration. Has been feeling weak and with reduced p.o. intake. Pt increased her home O2 to 2.5 L without any alleviation of symptoms. Denies chest pressure or palpitations. No fever or chills. Denies nausea, vomiting, and abdominal pain. Pt still smokes approximately half a pack of cigarettes daily In the ED pt was tachycardic, tachypneic and hypertensive. Pt initially brought in on rescue CPAP, satting at 95%. Labs significant for positive influenza a, leukocytosis 20.6 and sodium 147, otherwise unremarkable and baseline for pt. CXR showed mild bibasilar atelectasis/pneumonitis and possible small/minimal effusions. EKG showed sinus tachycardia without ischemic changes. EMS treated pt with DuoNebs, Mag 2 g IV, Solu-Medrol 125 mg IV, and 2 in of nitro paste. ED treated with IVF, and ceftriaxone 2 g IV. Hospital course: Patient was admitted for acute on chronic hypoxic respiratory failure secondary to COPD exacerbation secondary to influenza A and recent RSV infection. Treated with Tamiflu, Prednisone, duonebs, and 2 LPM supplemental 02 via NC. Continued home inhalers. She was able to ambulate in room. Per her reports she is walking with ease and has had no drop in her O2 level she's just tired, requesting to self-titrate her supplemental 02. Chronic problem list: COPD On chronic steroids at baseline, as well as home with 12 day taper of prednisone Continue home treatment with DuoNebs, inhalers and guaifenesin as needed On 1-2L NC at baseline since last admission CAD On aspirin, statin, BB HTN On carvedilol Insulin-dependent type 2 diabetes On Lantus (dose adjusted 35U bid at baseline, will start with 20u bid and titrate as needed) On trulicity, jardiance Encouraged home Diabetic diet Peripheral neuropathy/chronic pain On gabapentin, robaxin, oxycodone Hypothyroidism On levothyroxine Gout On allopurinol Tobacco use On NRT Smoking cessation advised Time Attestation Discharge Coordination Time (in mins): 40 Quality: Safe Use of Opioids Does Pt have an Active Cancer Diagnosis on the Problem List?: No Quality: Stroke Does the patient have a stroke diagnosis?: No Physical Exam Vital Signs: Vital Signs: Last Vital Signs Temp 97.5 F 04/19/24 09:45 Pulse 82 04/19/24 09:45 Resp 20 04/19/24 09:45 BP 154/74 H 04/19/24 09:45 Pulse Ox 94 04/19/24 09:45 O2 Del Method Nasal Cannula 04/19/24 09:45 O2 Flow Rate 2 04/19/24 09:45 BMI result Body Mass Index 26.8 Appearing in no acute distress head is normocephalic atraumatic eyes pupils are PERRLA sclera is anicteric mouth throat mucous membranes are intact and moist neck is supple no lymphadenopathy, no JVD noted lung sounds are clear to auscultation heart regular rate rhythm, clear S1, S2 positive bowel sounds, abdomen is soft, nontender neuro patient is alert x3, no focal deficits Resp: Effort & Inspection: able to speak in complete sentences Auscultation: diminished lung sounds bilateral throughout DS: Data Data Completed and Pending Labs on day of discharge: Laboratory Results - last 24 hr 04/18/24 04/18/24 04/19/24 16:34 21:25 07:37 POC Glucose 197 H 301 H 93 Preliminary micro results at discharge 04/14/24 19:10 Blood Culture - Preliminary Blood - Venous No growth after 48 hours. 04/14/24 18:34 Blood Culture - Preliminary Blood - Venous No growth after 48 hours. Discharge Plan Discharge Anticipated Discharge Date/Time: 04/19/24 07:24 Patient Disposition: Home Health Service Discharge Diagnosis: Acute on chronic hypoxic respiratory failure COPD exacerbation Influenza A RSV Referrals: claudia [Other] - 1 Week Name,MD Bobby [Primary Care Provider] - 1 Week Discharge Medications: Continued albuterol sulfate [Ventolin HFA] 90 mcg/actuation HFA aerosol inhaler 2 puff inhalation Q4-6H PRN (Reason: for wheezing) Qty: 18 11RF roflumilast 500 mcg tablet 500 mcg PO DAILY Qty: 30 11RF docusate sodium 100 mg capsule 1 cap PO BEDTIME sennosides [senna] 8.6 mg Tablet 8.6 mg PO BID lidocaine 5 % adhesive patch,medicated 1 patch topical DAILY PRN (Reason: pain) insulin glargine [Lantus Solostar U-100 Insulin] 100 unit/mL (3 mL) insulin pen 35 unit SUBCUT BID Rx Instructions: PER PATIENT, MAY REQUIRE HIGHER DOSES WHEN ON STEROIDS levothyroxine 112 mcg tablet 112 mcg PO DAILY@0600 pregabalin 100 mg capsule 100 mg PO TID omeprazole 20 mg capsule,delayed release(DR/EC) 20 mg PO BID@0630,1630 aspirin 81 mg tablet,delayed release (DR/EC) 81 mg PO BEDTIME carvedilol 6.25 mg tablet 6.25 mg PO BID atorvastatin 80 mg tablet 80 mg PO BEDTIME Protocol: Hold for SBP< HOLD for SBP < : 90 montelukast 10 mg tablet 10 mg PO BEDTIME cetirizine 10 mg tablet 10 mg PO DAILY PRN (Reason: allergies) (DME) lancets [TRUEplus Lancets] 33 gauge misc See Rx Instructions .ROUTE TID Qty: 100 Rx Instructions: As directed (DME) FreeStyle Lite Strips Strip See Rx Instructions .ROUTE TID Qty: 10 Rx Instructions: As directed naloxone 4 mg/actuation spray,non-aerosol 1 spray intranasal ONCE PRN (Reason: Opioid Overdose) oxycodone-acetaminophen 7.5-325 mg tablet 1 tab PO Q6H PRN (Reason: severe pain) nicotine 21 mg/24 hr patch 24 hour 1 patch transdermal DAILY 28 Days Qty: 28 6RF methocarbamol 750 mg tablet 750 mg PO Q8H PRN (Reason: neuropathy) (DME) nebulizers Misc See Rx Instructions .Route Rx Instructions: As directed (DME) HANK Elbow Brace Misc See Rx Instructions .Route Qty: 1 0RF Rx Instructions: As directed Jardiance 10 mg tablet 10 mg PO DAILY allopurinol 100 mg tablet 100 mg PO DAILY 90 Days Qty: 90 1RF Discontinued prednisone 5 mg tablet 5 mg PO DAILY Qty: 30 3RF prednisone 20 mg tablet See Rx Instructions .ROUTE .COMPLEX Rx Instructions: PATIENT ONLY TAKING 20MG DAILY FOR 3 DAYS. LAST DAY IS 04/15 No Action prednisone 10 mg tablet See Taper PO DAILY Taper: Prednisone 40 mg daily for 2 Days and 0 Hour 30 mg daily for 3 Days and 0 Hour 20 mg daily for 3 Days and 0 Hour 10 mg daily for 3 Days and 0 Hour insulin aspart U-100 [Novolog FlexPen U-100 Insulin] 100 unit/mL (3 mL) insulin pen 6 - 10 sliding scale dose subcut TIDAC Protocol: Insulin Correction Scale Less than or equal to 110 ---- Give (units): 0 111 to 150 Give (units): 0 151 to 200 Give (units): 2 201 to 250 Give (units): 4 251 to 300 Give (units): 6 301 to 350 Give (units): 8 Greater than 350 Give (units): 10 Call MD if Blood Glucose > : 350 Combivent Respimat 20-100 mcg/actuation mist 2 puff INHALATION BID Trulicity 1.5 mg/0.5 mL pen injector 1.5 mg subcut WE@0900 Trelegy Ellipta 100-62.5-25 mcg blister with device 1 ea INHALATION DAILY Dupixent Pen 300 mg/2 mL pen injector 300 mg SUBCUT Q2W fluticasone propionate [Flonase] 50 mcg/actuation [place],Suspension 1 spray INTRANASAL DAILY PRN (Reason: Congestion) Rx Instructions: administer into each nostril ipratropium-albuterol 0.5 mg-3 mg(2.5 mg base)/3 mL solution for nebulization 3 ml inhalation QID PRN (Reason: Shortness Of Breath Or Wheezing) Discharge Orders: Discharge Order (Routine); Ordered 04/19/24 Ordered By: Nadira White Diet: Advance to usual diet Activity on Discharge: As tolerated Stand Alone Forms: Patient Portal Discharge page Print Language: Bahraini Care Plan Goals: Continue oxygen therapy as needed Health Concerns: Acute on chronic hypoxic respiratory failure COPD exacerbation Influenza A RSV Plan of Treatment: Follow up with primary care provider as needed Take all medications as prescribed Assessment: See discharge summary Discharge Date/Time: 04/19/24 10:00
== END 2024-04-19 10:00 | disposition home health service (06) | DRG 193 ==
LOC: HO.ED 19:33 → HO.EDOVER 19:39 → HO.S3 04-15 06:41
PROVIDERS: Physician Assistant Medical; Admitting Provider Student in an Organized Health Care Education/Training Program; Emergency Provider Emergency Medicine; PCP Internal Medicine Geriatric Medicine; Visit Provider Nurse Practitioner Acute Care
DX: J10.1 Influenza due to other identified influenza virus with other respiratory manifestations (principal); J96.21 Acute and chronic respiratory failure with hypoxia; J44.1 Chronic obstructive pulmonary disease with (acute) exacerbation; I25.10 Atherosclerotic heart disease of native coronary artery without angina pectoris; E03.9 Hypothyroidism, unspecified; Z99.81 Dependence on supplemental oxygen; E11.42 Type 2 diabetes mellitus with diabetic polyneuropathy; I10 Essential (primary) hypertension; Z71.6 Tobacco abuse counseling; F17.290 Nicotine dependence, other tobacco product, uncomplicated; M10.9 Gout, unspecified; Z95.5 Presence of coronary angioplasty implant and graft; Z79.82 Long term (current) use of aspirin; Z79.51 Long term (current) use of inhaled steroids; Z79.4 Long term (current) use of insulin; Z79.890 Hormone replacement therapy; Z79.899 Other long term (current) drug therapy
CPT/HCPCS: 0241U; 36415; 71045; 80048; 82803; 82947; 83605; 83735; 83880; 84484; 85007; 85025; 85027; 87040; 93005; 94640; 99285; J0696; J1650; J2919

== ENCOUNTER → 2024-04-14 18:19 | Outpatient (BNV) | payer OTHER, SELFPAY | PROVIDERS: Admitting Provider Student in an Organized Health Care Education/Training Program; Emergency Provider Emergency Medicine; PCP Internal Medicine Geriatric Medicine; Visit Provider Internal Medicine Cardiovascular Disease | DX: R94.31 Abnormal electrocardiogram [ECG] [EKG] (principal) | CPT/HCPCS: 93010 ==

== ENCOUNTER → 2024-04-14 18:19 | Outpatient (BNV) | payer OTHER, SELFPAY | PROVIDERS: Admitting Provider Student in an Organized Health Care Education/Training Program; PCP Internal Medicine Geriatric Medicine; Visit Provider Radiology Neuroradiology | DX: R06.02 Shortness of breath (principal) | CPT/HCPCS: 71045 ==

== ENCOUNTER → 2024-04-14 19:38 | Outpatient (BNV) | payer OTHER, SELFPAY | PROVIDERS: Admitting Provider Student in an Organized Health Care Education/Training Program; Emergency Provider Emergency Medicine; PCP Internal Medicine Geriatric Medicine; Visit Provider Student in an Organized Health Care Education/Training Program | DX: J10.1 Influenza due to other identified influenza virus with other respiratory manifestations (principal); J96.21 Acute and chronic respiratory failure with hypoxia; J44.1 Chronic obstructive pulmonary disease with (acute) exacerbation | CPT/HCPCS: 99223; 99232; 99233 ==

== ENCOUNTER 2024-04-21 11:50 | Inpatient (IN) | payer OTHER, SELFPAY ==
[2024-04-21] VITALS (11 sets, daily range): BP systolic 117–155; BP diastolic 65–84; PULSE 83–103; RESP 16–26; TEMP 36.4–36.8; O2SAT 90–97; BMI 28.1; BMI 28.2
--- NOTE | ~2024-04-21 | XR_ITS ---
EXAMINATION: XR CHEST CLINICAL INFORMATION: cough, SOB COMPARISON: Numerous priors, most recently 04/14/2024. TECHNIQUE: AP portable view of the chest was obtained. FINDINGS: Cardiac, hilar, and mediastinal contours are normal. Stable mild chronic scarring/atelectasis medial right middle lobe and lingula. The lungs are otherwise clear bilaterally. There is no pneumothorax or effusion. No focal soft tissue or osseous abnormality. XR/XR chest 1V IMPRESSION: No active pulmonary disease. No interval change from 04/14/2024. Electronically signed by: Felton Ovalle MD 04/21/2024 01:26 PM [facility]
--- NOTE | 2024-04-21 11:55 | ED_ITS ---
HPI - General Adult General Chief complaint: Dyspnea Stated complaint: SOB/87% HOME O2,BP 178/118 PER EMS Time Seen by Provider: 04/21/24 11:54 Source: patient and EMS Mode of arrival: EMS Limitations: no limitations History of Present Illness ED Provider: Maritza Pineda PA-C HPI narrative: Patient is a 63 year old assigned female at with a history of tobacco use, CAD, insulin-dependent type 2 diabetes COPD recently started on home 02 (2L NC), HTN, hypothyroidism, GERD, gout, influenza + RSV on 04/14/2024, presenting to the emergency department today with concerns of hypoxia and difficulty breathing. Patient states that she woke up multiple times throughout the night hypoxic and feels as though she is continuing to have trouble breathing. Patient denies any dizziness, lightheadedness, abdominal pain, nausea, vomiting, fever, chills, blurry vision, double vision, loss of vision, chest pain, back pain, night sweats, pain with urination, increased urinary frequency, increased urinary urgency, blood in her urine or stool, syncope or a near syncopal episode, recent trauma or falls, bowel incontinence, bladder incontinence, or any other complaints at this time. Relieving factors: none Exacerbating factors: none Associated symptoms: shortness of breath Related Data Home Medications ?Medication ?Instructions ?Recorded ?Confirmed aspirin 81 mg tablet,delayed 81 mg PO BEDTIME 12/24/19 04/14/24 release atorvastatin 80 mg tablet 80 mg PO BEDTIME 12/24/19 04/14/24 carvedilol 6.25 mg tablet 6.25 mg PO BID 12/24/19 04/14/24 cetirizine 10 mg tablet 10 mg PO DAILY PRN allergies 12/24/19 04/14/24 montelukast 10 mg tablet 10 mg PO BEDTIME 12/24/19 04/14/24 omeprazole 20 mg capsule,delayed 20 mg PO BID@0630,1630 12/24/19 04/14/24 release ipratropium 20 mcg-albuterol 100 2 puff inhalation BID 01/02/20 04/14/24 mcg/actuation mist for inhalation (Combivent Respimat) docusate sodium 100 mg capsule 1 cap PO BEDTIME Constipation 01/24/21 04/14/24 blood sugar diagnostic (FreeStyle #10 ea 10/07/21 03/03/24 Lite Strips) lancets 33 gauge (TRUEplus Lancets) #100 ea 10/07/21 03/03/24 naloxone 4 mg/actuation nasal spray 1 spray intranasal ONCE PRN Opioid 10/07/21 04/14/24 Overdose oxycodone-acetaminophen 7.5 mg-325 1 tab PO Q6H PRN severe pain 06/23/22 04/14/24 mg tablet sennosides 8.6 mg tablet (senna) 8.6 mg PO BID Constipation 01/30/23 04/14/24 nebulizers 06/03/23 03/03/24 empagliflozin 10 mg tablet 10 mg PO DAILY 02/10/24 04/14/24 (Jardiance) methocarbamol 750 mg tablet 750 mg PO Q8H PRN neuropathy 03/03/24 04/14/24 insulin glargine 100 unit/mL (3 35 unit subcut BID 04/07/24 04/14/24 mL) subcutaneous pen (Lantus Solostar U-100 Insulin) levothyroxine 112 mcg tablet 112 mcg PO DAILY@0600 04/07/24 04/14/24 lidocaine 5 % topical patch 1 patch topical DAILY PRN pain 04/07/24 04/14/24 pregabalin 100 mg capsule 100 mg PO TID 04/07/24 04/14/24 cholecalciferol (vitamin D3) 50 DAILY 04/21/24 mcg (2,000 unit) capsule (Vitamin D3) dulaglutide 1.5 mg/0.5 mL mg subcut FR 04/21/24 subcutaneous pen injector (Trulicity) dupilumab 300 mg/2 mL subcutaneous mg subcut 04/21/24 pen injector (Dupixent) fluticasone fur. 100 mcg-umeclid 1 ea inhalation DAILY 04/21/24 62.5 mcg-vilant 25 mcg inhalat.powder (Trelegy Ellipta) insulin aspart U-100 100 unit/mL 6 - 10 unit subcut DIRECTED 04/21/24 (3 mL) subcutaneous pen (Novolog FlexPen U-100 Insulin aspart) ipratropium 20 mcg-albuterol 100 inhalation 04/21/24 mcg/actuation mist for inhalation (Combivent Respimat) prednisone 10 mg tablet mg 04/21/24 prednisone 5 mg tablet 5 mg PO DAILY 04/21/24 Previous Rx's ?Medication ?Instructions ?Recorded Ventolin HFA 90 mcg/actuation 2 puff inhalation Q4-6H PRN for 07/27/23 aerosol inhaler (albuterol sulfate) wheezing #18 grams arm brace (HANK Elbow Brace) #1 ea 08/27/23 roflumilast 500 mcg tablet 500 mcg PO DAILY #30 tabs 10/22/23 nicotine 21 mg/24 hr daily 1 patch transdermal DAILY 28 days 10/28/23 transdermal patch #28 ea allopurinol 100 mg tablet 100 mg PO DAILY 90 days #90 tabs 02/10/24 fluticasone fur. 100 mcg-umeclid 1 ea inhalation DAILY #1 ea 03/09/24 62.5 mcg-vilant 25 mcg inhalat.powder (Trelegy Ellipta) Allergies Allergy/AdvReac Type Severity Reaction Status Date / Time HANK Inhibitors Allergy Severe ANGIO Verified 04/21/24 12:28 [HANK INHIBITORS] EDEMA enalapril Allergy Severe Anaphylaxis Verified 04/21/24 12:28 erythromycin base Allergy Severe HIVES ALL Verified 04/21/24 12:28 [ERYTHROMYCIN BASE] OVER metformin Allergy Unknown Verified 04/21/24 12:28 hydromorphone [From DILAUDID] AdvReac Severe TINGLING, Verified 04/21/24 12:28 PT DOES NOT LIKE THE FEELING MED GIVES HER Review of Systems 2 Constitutional: Constitutional: Reports no additional constitutional complaints, Denies chills, Denies fever(s) and Denies night sweats Eyes: Eyes: Reports no additional eye complaints, Denies blurry vision, Denies change in vision, Denies diplopia, Denies eye discharge, Denies loss of vision and Denies eye pain ENT: Denies dizziness Cardiovascular: Cardiovascular: Reports no additional cardiovascular complaints, Denies chest pain, Denies lightheadedness, Denies Loss of Consciousness and Reports dyspnea Respiratory: Respiratory: Reports no additional respiratory complaints, Reports cough and Reports dyspnea Gastrointestinal: Gastrointestinal: Reports no additional gastrointestinal complaints, Denies abdominal pain, Denies melena, Denies hematochezia, Denies change in bowel habits and Denies change in stool character Genitourinary: Genitourinary: Denies hematuria, Denies urinary frequency, Denies dysuria, Denies urinary incontinence, Denies urinary hesitancy and Denies urinary urgency Musculoskeletal: Musculoskeletal: Reports no additional musculoskeletal complaints, Denies numbness and Denies tingling Neurologic: Denies dizziness, Denies loss of vision, Denies numbness and Denies tingling Psychiatric: Psychiatric: Reports no additional psychiatric complaints Endocrine: Endocrine: Reports no additional endocrine complaints Hematologic/Lymphatic: Hematologic/Lymphatic: Reports no additional hematologic/lymphatic complaints Allergic/Immunologic: Allergic/Immunologic: Reports no additional allergic/immunologic complaints [facility] Past Medical History Attestation statement: The following information was validated with the patient. Source: old records reviewed and nursing notes reviewed Medical History Asthma-COPD overlap syndrome Allergies History of back pain History of neuropathy Smokes tobacco daily Opioid dependence Nephrolithiasis Hyperlipidemia HTN (hypertension) Cardiomyopathy Myocardial infarction CAD (coronary artery disease) Cough Hypothyroidism, postsurgical Tubular adenoma Diabetes MCKAY (obstructive sleep apnea) Irritable bowel syndrome Hyperthyroidism Polycythemia Smoker Hypoxia COPD exacerbation Lesion of bronchus Tracheal anomaly Multinodular goiter Vitamin D deficiency Atelectasis Subclinical hyperthyroidism Goiter Pneumonia Pulmonary nodules COPD (chronic obstructive pulmonary disease) Surgical History History of coronary artery stent placement Hx of thyroidectomy History of thyroid surgery History of esophagogastroduodenoscopy (EGD) Hx of colonoscopy History of back surgery History of ureterostomy S/P lumpectomy, right breast History of cholecystectomy History of tonsillectomy Family History Family History Father No problems noted. Mother No problems noted. Paternal Aunt Diabetes Social History Social History Household Members: Spouse Housing: House Do you presently have visiting nurse or other home services: No Alcohol intake: never Comment: BEDSIDE COMMODE Patient Tobacco Use Status: Former Tobacco user Tobacco use type: Cigar Cigarette Packs Per Day: 0.5 Cigarettes Per Day: 10 e-Cigarette/Vaping Use: Never Used Second Hand Smoke Exposure: Yes Substance Use Type: Other Advance Directives: Yes Advance Directives on File: Yes Advance Directives Date on File: 01/24/21 service: No Current occupational status: disabled Physical Exam ED Vital Signs: Vital Signs - 24 hr 04/21/24 12:06 04/21/24 12:27 04/21/24 14:24 Pulse Rate 103 H 87 Respiratory Rate 26 H 18 22 H Blood Pressure 144/83 H Pulse Oximetry 97 90 L Oxygen Delivery Method Aerosol Mask Nasal Cannula Oxygen Flow Rate 2 04/21/24 14:32 Pulse Rate 83 Respiratory Rate 25 H Blood Pressure Pulse Oximetry Oxygen Delivery Method Oxygen Flow Rate BMI result Body Mass Index 28.1 Const General: cooperative, no acute distress, alert and awake Nutritional Appearance: well nourished Orientation/consciousness: patient oriented x3 Limitations: no limitations HENMT Head: Yes normal to inspection and Yes atraumatic Ears: hearing grossly normal bilaterally and external ears normal General nose exam: Normal external nose present, no nasal discharge noted and no epistaxis Face and sinus: Yes normal facial exam, No abrasion and No laceration Mouth: Normal oral and palatal mucosa present, no drooling and no muffled voice Eyes General: appearance normal, both eyes and all related structures Periorbital: periorbital findings normal Eyelids: Yes eyelids normal Conjunctivae: conjunctivae normal Pupils: Equal, round and reactive pupils present EOM: EOMs intact bilaterally Neck Neck: Yes normal visual inspection, Yes full ROM and Yes no lymphadenopathy Chest Chest palpation & inspection: normal inspection of the chest Resp Effort & Inspection: able to speak in complete sentences and labored Auscultation: wheezes scattered wheezes and diminished lung sounds diffuse GI Inspection: Yes normal to inspection Neuro General: patient oriented x3 and moves all extremities Cranial nerves: Yes Equal, round and reactive pupils present Cognition (Neuro): normal cognition Extrem General: Yes normal to inspection, Yes full ROM and Yes capillary refill normal Psych Appearance: grossly normal Mental Status: mental status grossly normal Affect: normal affect Attitude: cooperative Thought process: Normal thought process present Thought content: Normal thought content present Insight: Good insight present (Psych) Medications Administered Discontinued Medications Generic Name Dose Route Start Last Admin Trade Name Freq PRN Reason Stop Dose Admin Albuterol Sulfate 5 mg/ 7.5 mg 04/21/24 14:32 04/21/24 14:40 Albuterol Sulfate 2.5 mg INHALE 04/21/24 14:33 7.5 mg ONCE ONE Administration Albuterol Sulfate 5 mg/ 0 mg 04/21/24 12:05 04/21/24 12:12 Albuterol/Ipratropium 3 ml INHALE 04/21/24 12:06 7.5 each ONCE ONE Administration Medical Decision Making Medical Decision Making MDM Narrative: Patient is a 63 year old assigned female at with a history of tobacco use, CAD, insulin-dependent type 2 diabetes COPD recently started on home 02 (2L NC), HTN, hypothyroidism, GERD, gout, influenza + RSV on 04/14/2024, presenting to the emergency department today with concerns of hypoxia and difficulty breathing. Patient's physical exam was as noted in the physical exam portion of this note. Patient's blood work showed an elevated WBC count which is likely secondary to recent corticosteroid use. Patient's EKG was unremarkable. Patient's chest x-ray showed no acute process. Patient's clinical presentation is not consistent with sepsis (@1430). Patient received multiple breathing treatments while in the department as well as IV magnesium and solu-medrol which helped her breathing some but she continued to be wheezy. I spoke to the hospitalist team who agreed to admission. I explained my physical exam findings as well as all test results to the patient. I answered all questions asked by the patient. Patient verbalized agreement and understanding with this treatment plan and admission. Differential Diagnosis Differential Diagnoses: The differential diagnosis associated with the presentation includes RSV COPD exacerbation Admission/Observation Consideration of admission/observation: Escalation of care including admission/observation considered Patient admitted as noted in the MDM Rationale portion of this note. Consult Healthcare Provider Management of the patient was discussed with: Hospitalist (agreed to admission as noted in the MDM Rationale portion of this note.) Lab Data [facility] Lab Attestation statement: I reviewed the patient's lab results. My interpretation of these results are in the MDM Rationale portion of this note. 04/21/24 12:50 04/21/24 12:50 Labs: Lab Results 04/21/24 04/21/24 Range/Units 12:50 12:58 WBC 22.9 H (4.8-10.8) X10*3/uL RBC 5.87 H (4.20-5.50) X10*6/uL Hgb 16.6 H (12.0-16.0) g/dl Hct 51.1 H (37.0-47.0) % MCV 87.1 (80.0-98.0) fL MCH 28.3 (27.0-33.0) pg MCHC 32.5 (31.0-35.0) g/dl RDW 14.5 (11.0-16.0) % Plt Count 269 (160-400) X10*3/uL MPV 10.4 (9.4-12.3) fL Immature Gran % (Auto) Cancelled Neut % (Auto) Cancelled Lymph % (Auto) Cancelled Deuel % (Auto) Cancelled Eos % (Auto) Cancelled Baso % (Auto) Cancelled Lymph # (Auto) Cancelled Deuel # (Auto) Cancelled Eos # (Auto) Cancelled Baso # (Auto) Cancelled Abs Immat Gran (auto) Cancelled Absolute Neuts (auto) Cancelled Absolute Nucleated RBC 0.000 (0.0-0.012) X10*3/uL Nucleated RBC % (auto) 0.0 (0.0-0.2) /100WBC Neutrophils % (Manual) 92 H (45-73) % Band Neutrophils % 3 (3-5) % Lymphocytes % (Manual) 4 L (20-40) % Atypical Lymphs % (Man) 1 (0-6) % Abs Neuts (Manual) 21.8 H (2.0-8.3) X10*3/uL Lymphocytes # (Manual) 0.9 L (1.2-4.9) X10*3/uL Atyp Lymphs # (Manual) 0.2 x10*3/uL Toxic Vacuolation PRESENT Platelet Estimate NORMAL (NORMAL) Large Platelets PRESENT Plt Morphology Comment NOTED RBC Morphology NOTED Acanthocytes (Spur) 2+ (3-5) /OIF Schistocytes 1+ (0-2) /OIF VBG pH 7.47 H (7.32-7.43) VBG pCO2 42 mmHg VBG pO2 45 mmHg VBG HCO3 31 H (22-26) mmol/L VBG O2 Saturation 70.0 % VBG Base Excess 7.4 mmol/L Sodium 141 (135-145) mmol/L Potassium 4.4 (3.3-5.1) mmol/L Chloride 104 (96-108) mmol/L Carbon Dioxide 29 (22-29) mmol/L Anion Gap 12 (12-20) BUN 30 H (9-16) mg/dL Creatinine 0.79 (0.5-1.4) mg/dL Estim Creat Clear Calc 73.6 Estimated GFR > 60 Random Glucose 319 H (60-115) mg/dL Calcium 9.1 D (8.4-10.2) mg/dL Magnesium 2.0 (1.6-2.6) mg/dL Total Bilirubin 0.9 (0.0-1.0) mg/dL AST 44 H (5-31) U/L ALT 56 H (0-31) U/L Alkaline Phosphatase 71 (39-117) U/L Troponin I High Sens 12.9 D (<3.5-17.0) ng/L B-Natriuretic Peptide 66 (<100) pg/mL Total Protein 7.0 (6.5-8.0) g/dL Albumin 3.4 L (3.5-5.0) g/dL Respiratory Panel [facility] See Note Adenovirus (Rapid PCR) Not Detected (Not Detect.) B.pert (TEM-PCR) Not Detected (Not Detect.) B.parapertussis DNA PCR Not Detected (Not Detect.) C. pneumoniae DNA (PCR) Not Detected (Not Detect.) Coronavirus OC43 (PCR) Not Detected (Not Detect.) Coronavirus HKU1 (PCR) Not Detected (Not Detect.) Coronavirus 229E (PCR) Not Detected (Not Detect.) Coronavirus NL63 (PCR) Not Detected (Not Detect.) Human Metapneumovir PCR Not Detected (Not Detect.) Influenza A (RT-PCR) Not Detected (Not Detect.) Influenza B (RT-PCR) Not Detected (Not Detect.) M. pneumoniae (PCR) Not Detected (Not Detect.) Parainfluenza 1 (PCR) Not Detected (Not Detect.) Parainfluenza 2 (PCR) Not Detected (Not Detect.) Parainfluenza 3 (PCR) Not Detected (Not Detect.) Parainfluenza 4 (PCR) Not Detected (Not Detect.) RSV (PCR) Detected A (Not Detect.) Entero/Rhino (PCR) Not Detected (Not Detect.) SARS-CoV-2 RNA (RT-PCR) Not Detected (Not Detect.) Independent Interpretation I performed an independent interpretation of an: EKG and Plain X-Ray Interpretation: My interpretation is in agreement with the radiologist's impression of this imaging study. L EXAMINATION: XR CHEST CLINICAL INFORMATION: cough, SOB COMPARISON: Numerous priors, most recently 04/14/2024. TECHNIQUE: AP portable view of the chest was obtained. FINDINGS: Cardiac, hilar, and mediastinal contours are normal. Stable mild chronic scarring/atelectasis medial right middle lobe and lingula. The lungs are otherwise clear bilaterally. There is no pneumothorax or effusion. No focal soft tissue or osseous abnormality. XR/XR chest 1V IMPRESSION: No active pulmonary disease. No interval change from 04/14/2024. Electronically signed by: Felton Ovalle MD 04/21/2024 01:26 PM EST Dictated By: Felton Ovalle MD Signed By: Electronically signed by Felton Ovalle MD 04/21/24 1326 Vent. Rate: 98 BPM Atrial Rate: 98 BPM P-R Int: 124 ms QRS Dur: 86 ms QT Int: 362 ms P-R-T Axes: 74 -53 42 degrees QTcB Int: 462 ms Normal sinus rhythm Possible Left atrial enlargement Left axis deviation Pulmonary disease pattern DD/ 1208 Radiology Impression Discussion of test interpretation with radiology: I have reviewed the radiologist's reading. Independent Historian Clinical information obtained from an independent historian. History obtained from or confirmed by: EMS (EMS provided additional history and confirmed the history provided by the patient.) Chronic Conditions Patient?s care impacted by: Diabetes and Hypertension Critical Care Time Critical Care Time Critical Care Time: Yes Total Critical Care Time: 45 Attestation: I spent 45 minutes of Critical Care Time with this patient. This does not include time spent on separately reported billable procedures. Discharge Plan Discharge Clinical Impression: COPD exacerbation, Hypoxia Patient Disposition: Admitted As Inpatient Prescriptions: No Action albuterol sulfate [Ventolin HFA] 90 mcg/actuation HFA aerosol inhaler 2 puff inhalation Q4-6H PRN (Reason: for wheezing) Qty: 18 11RF roflumilast 500 mcg tablet 500 mcg PO DAILY Qty: 30 11RF Trelegy Ellipta 100-62.5-25 mcg blister with device 1 ea inhalation DAILY Qty: 1 0RF docusate sodium 100 mg capsule 1 cap PO BEDTIME prednisone 10 mg tablet prednisone 5 mg tablet 5 mg PO DAILY insulin aspart U-100 [Novolog FlexPen U-100 Insulin] 100 unit/mL (3 mL) insulin pen 6 - 10 unit subcut DIRECTED cholecalciferol (vitamin D3) [Vitamin D3] 50 mcg (2,000 unit) capsule DAILY Combivent Respimat 20-100 mcg/actuation mist INHALATION Trulicity 1.5 mg/0.5 mL pen injector subcut FR Trelegy Ellipta 100-62.5-25 mcg blister with device 1 ea INHALATION DAILY Dupixent Pen 300 mg/2 mL pen injector SUBCUT sennosides [senna] 8.6 mg Tablet 8.6 mg PO BID lidocaine 5 % adhesive patch,medicated 1 patch topical DAILY PRN (Reason: pain) insulin glargine [Lantus Solostar U-100 Insulin] 100 unit/mL (3 mL) insulin pen 35 unit SUBCUT BID Rx Instructions: PER PATIENT, MAY REQUIRE HIGHER DOSES WHEN ON STEROIDS levothyroxine 112 mcg tablet 112 mcg PO DAILY@0600 pregabalin 100 mg capsule 100 mg PO TID Combivent Respimat 20-100 mcg/actuation mist 2 puff inhalation BID Rx Instructions: space evenly during waking hours omeprazole 20 mg capsule,delayed release(DR/EC) 20 mg PO BID@0630,1630 aspirin 81 mg tablet,delayed release (DR/EC) 81 mg PO BEDTIME carvedilol 6.25 mg tablet 6.25 mg PO BID atorvastatin 80 mg tablet 80 mg PO BEDTIME Protocol: Hold for SBP< HOLD for SBP < : 90 montelukast 10 mg tablet 10 mg PO BEDTIME cetirizine 10 mg tablet 10 mg PO DAILY PRN (Reason: allergies) (DME) lancets [TRUEplus Lancets] 33 gauge misc See Rx Instructions .ROUTE TID Qty: 100 Rx Instructions: As directed (DME) FreeStyle Lite Strips Strip See Rx Instructions .ROUTE TID Qty: 10 Rx Instructions: As directed naloxone 4 mg/actuation spray,non-aerosol 1 spray intranasal ONCE PRN (Reason: Opioid Overdose) oxycodone-acetaminophen 7.5-325 mg tablet 1 tab PO Q6H PRN (Reason: severe pain) nicotine 21 mg/24 hr patch 24 hour 1 patch transdermal DAILY 28 Days Qty: 28 6RF methocarbamol 750 mg tablet 750 mg PO Q8H PRN (Reason: neuropathy) (DME) nebulizers Misc See Rx Instructions .Route Rx Instructions: As directed (DME) HANK Elbow Brace Misc See Rx Instructions .Route Qty: 1 0RF Rx Instructions: As directed Jardiance 10 mg tablet 10 mg PO DAILY allopurinol 100 mg tablet 100 mg PO DAILY 90 Days Qty: 90 1RF Print Language: Frisian
--- NOTE | 2024-04-21 11:56 | ECG_ITS ---
Test Reason : SOB Blood Pressure : */* mmHG Vent. Rate : 98 BPM Atrial Rate : 98 BPM P-R Int : 124 ms QRS Dur : 86 ms QT Int : 362 ms P-R-T Axes : 74 -53 42 degrees QTcB Int : 462 ms Normal sinus rhythm Possible Left atrial enlargement Left axis deviation Pulmonary disease pattern Possible Inferior infarct , age undetermined Abnormal ECG When compared with ECG of 14-Apr-2024 18:25, Borderline criteria for Inferior infarct are now Present ST less depressed in Lateral leads Referred By: Maritza Pineda Electronically Signed By: DAVI KEEN MD
[2024-04-21] MEDS: Albuterol Sulfate 5 MG, Albuterol/Iprat 2.5/0.5MG 3 ML 3 ML INHALE (12:12)
[2024-04-21 13:00] LABS: Hematocrit 51.1 % (37.0-47.0); Hemoglobin 16.6 g/dl (12.0-16.0); Mean Corpuscular HGB Conc 32.5 g/dl (31.0-35.0); Mean Corpuscular Hemoglobin 28.3 pg (27.0-33.0); Mean Corpuscular Volume 87.1 fL (80.0-98.0); Mean Platelet Volume 10.4 fL (9.4-12.3); Platelet Count 269 X10*3/uL (160-400); Red Blood Count 5.87 X10*6/uL (4.20-5.50); Red Cell Distribution Width 14.5 % (11.0-16.0); White Blood Count 22.9 X10*3/uL (4.8-10.8)
[2024-04-21 13:02] LABS: Venous Blood Gas Refer to POC result
[2024-04-21 13:03] LABS: VBG Base Excess 7.4 mmol/L; VBG HCO3 31 mmol/L (22-26); VBG pCO2 42 mmHg; VBG pH 7.47 (7.32-7.43); VBG pO2 45 mmHg
[2024-04-21 13:21] LABS: B Type Natriuretic Peptide 66 pg/mL (<100)
[2024-04-21 13:23] LABS: Acanthocytes 2+ (3-5) /OIF; Alanine Aminotransferase 56 U/L (0-31); Albumin Level 3.4 g/dL (3.5-5.0); Alkaline Phosphatase 71 U/L (39-117); Anion Gap 12 (12-20); Aspartate Amino Transferase 44 U/L (5-31); Atypical Lymph Absolute Manual 0.2 x10*3/uL; Atypical Lymphs Percent Manual 1 % (0-6); Band Neutrophils Percent 3 % (3-5); Blood Urea Nitrogen 30 mg/dL (9-16); Calcium 9.1 mg/dL (8.4-10.2); Carbon Dioxide 29 mmol/L (22-29); Chloride 104 mmol/L (96-108); Creatinine Clr Calc Pharmacy 73.6; Estimated Glomerular Filt Rate > 60; Glucose Random 319 mg/dL (60-115); Large Platelet PRESENT; Lymphocytes Absolute Manual 0.9 X10*3/uL (1.2-4.9); Lymphocytes Percent Manual 4 % (20-40); Neutrophils Absolute Manual 21.8 X10*3/uL (2.0-8.3); Neutrophils Percent Manual 92 % (45-73); Platelet Estimate NORMAL (NORMAL); Platelet Morphology Comment NOTED; Potassium 4.4 mmol/L (3.3-5.1); RBC Morphology NOTED; Schistocytes 1+ (0-2) /OIF; Sodium 141 mmol/L (135-145); Toxic Vacuolation PRESENT; Troponin-I High Sensitivity 12.9 ng/L (<3.5-17.0)
[2024-04-21 13:31] LABS: Bilirubin Total 0.9 mg/dL (0.0-1.0)
[2024-04-21] MEDS: Albuterol Sulfate 5 MG, Albuterol Sulfate (0.083%) 2.5 MG 7.5 MG INHALE (14:40)
--- NOTE | 2024-04-21 14:51 | P.HPHOSP_ITS ---
History of Present Illness Date of Service: 04/21/24 Attending physician on admission: Dhaval Hancock Chief Complaint: SOB Pt is a 63-year-old female with a PMH significant for?CAD, insulin-dependent type 2 diabetes, COPD recently started on 2L home O2, HTN, hypothyroidism, GERD, and gout who presents to the ED with?increased SOB productive and difficulty breathing. The pt has had 2 recent prior hospitalizations for similar symptoms, on 04/07-04/11 for hypoxia and COPD exacerbation from RSV infection and most recently being discharged 2 days prior after being admitted for acute hypoxic respiratory failure setting of COPD exacerbation from flu infection. Pt reports she felt well after last discharge and had no difficulty breathing or ambulating around her home. Yesterday however pt had increased difficulty breathing with exertion, which significantly worsened this morning. Pt reported ambulated to the bathroom and needed to have help getting back to bed despite resting for 15 minutes. Was seen by PT today who noted pt was desatting into the low 80s with ambulation on home O2 and recommended coming to the ED for further evaluation. Pt denies lower extremity edema. No orthopnea. Denies fever, chills. Cough at baseline. Denies chest pain/pressure, palpitations. No nausea, vomiting, abdominal pain. Pt is currently attempting to quit smoking, though recently was smoking approximately half a pack of cigarettes daily. In the ED pt was tachycardic to 103, tachypneic up to 26, and hypertensive to 144/83, originally satting at 83% on home 2 L NC. Labs were significant for AST 44 and ALT 56, otherwise grossly unremarkable and around baseline for pt. Chronic leukocytosis from steroids at 22.9. Stable H&H. No significant electrolyte abnormalities. Renal function baseline. BNP WNL. Initial troponin WNL. CXR showed no acute cardiopulmonary disease or interval change since prior. EKG demonstrated normal sinus rhythm without significant ST elevations or depressions, similar to prior. Pt was treated with DuoNebs. Pt will be admitted to the hospital for treatment and further evaluation of acute on chronic hypoxic respiratory failure in the setting of COPD exacerbation. Review of Systems 2 Review of Systems: Negative except for that which is stated in the [facility] Medical History Asthma-COPD overlap syndrome Allergies History of back pain History of neuropathy Smokes tobacco daily Opioid dependence Nephrolithiasis Hyperlipidemia HTN (hypertension) Cardiomyopathy Myocardial infarction CAD (coronary artery disease) Cough Hypothyroidism, postsurgical Tubular adenoma Diabetes MCKAY (obstructive sleep apnea) Irritable bowel syndrome Hyperthyroidism Polycythemia Smoker Hypoxia COPD exacerbation Lesion of bronchus Tracheal anomaly Multinodular goiter Vitamin D deficiency Atelectasis Subclinical hyperthyroidism Goiter Pneumonia Pulmonary nodules COPD (chronic obstructive pulmonary disease) Family History Father No problems noted. Mother No problems noted. Paternal Aunt Diabetes Surgical History History of coronary artery stent placement Hx of thyroidectomy History of thyroid surgery History of esophagogastroduodenoscopy (EGD) Hx of colonoscopy History of back surgery History of ureterostomy S/P lumpectomy, right breast History of cholecystectomy History of tonsillectomy Social History Household Members: Spouse Housing: House Do you presently have visiting nurse or other home services: No Alcohol intake: never Comment: BEDSIDE COMMODE Patient Tobacco Use Status: Former Tobacco user Tobacco use type: Cigar Cigarette Packs Per Day: 0.5 Cigarettes Per Day: 10 e-Cigarette/Vaping Use: Never Used Second Hand Smoke Exposure: Yes Substance Use Type: Other Advance Directives Date on File: 01/24/21 service: No Current occupational status: disabled Meds Allergies Allergy/AdvReac Type Severity Reaction Status Date / Time HANK Inhibitors Allergy Severe ANGIO Verified 04/21/24 12:28 [HANK INHIBITORS] EDEMA enalapril Allergy Severe Anaphylaxis Verified 04/21/24 12:28 erythromycin base Allergy Severe HIVES ALL Verified 04/21/24 12:28 [ERYTHROMYCIN BASE] OVER metformin Allergy Unknown Verified 04/21/24 12:28 hydromorphone [From DILAUDID] AdvReac Severe TINGLING, Verified 04/21/24 12:28 PT DOES NOT LIKE THE FEELING MED GIVES HER Home Medications ?Medication ?Instructions ?Recorded ?Confirmed ?Last Taken ?Type aspirin 81 mg tablet,delayed 81 mg PO BEDTIME 12/24/19 04/14/24 04/13/24 History release atorvastatin 80 mg tablet 80 mg PO BEDTIME 12/24/19 04/14/24 04/13/24 History carvedilol 6.25 mg tablet 6.25 mg PO BID 12/24/19 04/14/24 04/14/24 History cetirizine 10 mg tablet 10 mg PO DAILY PRN allergies 12/24/19 04/14/24 04/07/24 History montelukast 10 mg tablet 10 mg PO BEDTIME 12/24/19 04/14/24 04/14/24 History omeprazole 20 mg capsule,delayed 20 mg PO BID@0630,1630 12/24/19 04/14/24 04/14/24 History release ipratropium 20 mcg-albuterol 100 2 puff inhalation BID 01/02/20 04/14/24 04/14/24 History mcg/actuation mist for inhalation (Combivent Respimat) docusate sodium 100 mg capsule 1 cap PO BEDTIME Constipation 01/24/21 04/14/24 04/13/24 History blood sugar diagnostic (FreeStyle #10 ea 10/07/21 03/03/24 10/20/22 09:00 History Lite Strips) lancets 33 gauge (TRUEplus Lancets) #100 ea 10/07/21 03/03/24 10/20/22 09:00 History naloxone 4 mg/actuation nasal spray 1 spray intranasal ONCE PRN Opioid 10/07/21 04/14/24 01/29/23 History Overdose oxycodone-acetaminophen 7.5 mg-325 1 tab PO Q6H PRN severe pain 06/23/22 04/14/24 04/07/24 History mg tablet sennosides 8.6 mg tablet (senna) 8.6 mg PO BID Constipation 01/30/23 04/14/24 04/14/24 History nebulizers 06/03/23 03/03/24 Unknown History empagliflozin 10 mg tablet 10 mg PO DAILY 02/10/24 04/14/24 04/14/24 History (Jardiance) methocarbamol 750 mg tablet 750 mg PO Q8H PRN neuropathy 03/03/24 04/14/24 04/07/24 History insulin glargine 100 unit/mL (3 35 unit subcut BID 04/07/24 04/14/24 04/14/24 History mL) subcutaneous pen (Lantus Solostar U-100 Insulin) levothyroxine 112 mcg tablet 112 mcg PO DAILY@0600 04/07/24 04/14/24 04/14/24 History lidocaine 5 % topical patch 1 patch topical DAILY PRN pain 04/07/24 04/14/24 Unknown History pregabalin 100 mg capsule 100 mg PO TID 04/07/24 04/14/24 04/14/24 History cholecalciferol (vitamin D3) 50 DAILY 04/21/24 Unknown History mcg (2,000 unit) capsule (Vitamin D3) dulaglutide 1.5 mg/0.5 mL mg subcut FR 04/21/24 Unknown History subcutaneous pen injector (Trulicity) dupilumab 300 mg/2 mL subcutaneous mg subcut 04/21/24 Unknown History pen injector (Dupixent) fluticasone fur. 100 mcg-umeclid 1 ea inhalation DAILY 04/21/24 Unknown History 62.5 mcg-vilant 25 mcg inhalat.powder (Trelegy Ellipta) insulin aspart U-100 100 unit/mL 6 - 10 unit subcut DIRECTED 04/21/24 Unknown History (3 mL) subcutaneous pen (Novolog FlexPen U-100 Insulin aspart) ipratropium 20 mcg-albuterol 100 inhalation 04/21/24 Unknown History mcg/actuation mist for inhalation (Combivent Respimat) prednisone 10 mg tablet mg 04/21/24 Unknown History prednisone 5 mg tablet 5 mg PO DAILY 04/21/24 Unknown History Physical Exam 2 Vital Signs and Narrative: Vital Signs: Last Vital Signs Pulse 83 04/21/24 14:32 Resp 25 H 04/21/24 14:32 BP 144/83 H 04/21/24 12:27 Pulse Ox 90 L 04/21/24 14:24 O2 Del Method Nasal Cannula 04/21/24 14:24 O2 Flow Rate 2 04/21/24 14:24 BMI result Body Mass Index 28.1 General: AOx3, no acute distress Resp: Diffuse wheezing bilaterally CVS: S1, S2, RRR GI: +BS, NT, no distention Skin: Warm, dry Neuro: Cranial nerves II-XII grossly intact bilaterally. Motor grossly intact bilaterally Extremities: No edema Psych: Appropriate affect Results Labs 04/21/24 12:50 04/21/24 12:50 Labs: Laboratory Results - last 24 hr 04/21/24 04/21/24 12:50 12:58 MCV 87.1 MCH 28.3 MCHC 32.5 RDW 14.5 Plt Count 269 MPV 10.4 Immature Gran % (Auto) Cancelled Neut % (Auto) Cancelled Lymph % (Auto) Cancelled [place] % (Auto) Cancelled Eos % (Auto) Cancelled Baso % (Auto) Cancelled Lymph # (Auto) Cancelled [place] # (Auto) Cancelled Eos # (Auto) Cancelled Baso # (Auto) Cancelled Abs Immat Gran (auto) Cancelled Absolute Neuts (auto) Cancelled Absolute Nucleated RBC 0.000 Nucleated RBC % (auto) 0.0 Neutrophils % (Manual) 92 H Band Neutrophils % 3 Lymphocytes % (Manual) 4 L Atypical Lymphs % (Man) 1 Abs Neuts (Manual) 21.8 H Lymphocytes # (Manual) 0.9 L Atyp Lymphs # (Manual) 0.2 Toxic Vacuolation PRESENT Platelet Estimate NORMAL Large Platelets PRESENT Plt Morphology Comment NOTED RBC Morphology NOTED Acanthocytes (Spur) 2+ (3-5) Schistocytes 1+ (0-2) VBG pH 7.47 H VBG pCO2 42 VBG pO2 45 VBG HCO3 31 H VBG O2 Saturation 70.0 VBG Base Excess 7.4 Anion Gap 12 Estim Creat Clear Calc 73.6 Estimated GFR > 60 Random Glucose 319 H Calcium 9.1 D Magnesium 2.0 Total Bilirubin 0.9 AST 44 H ALT 56 H Alkaline Phosphatase 71 Troponin I High Sens 12.9 D B-Natriuretic Peptide 66 Total Protein 7.0 Albumin 3.4 L Imaging Radiologist's Impressions: Impressions Chest X-Ray 04/21/24 11:56 IMPRESSION: No active pulmonary disease. No interval change from 04/14/2024. Electronically signed by: Felton Ovalle MD 04/21/2024 01:26 PM [facility] [place] Plan (1) COPD exacerbation: Status: Acute (2) Acute on chronic hypoxic respiratory failure: Status: Resolved Plan Pt is a 63-year-old female with a PMH significant for?CAD, insulin-dependent type 2 diabetes, COPD recently started on 2L home O2, HTN, hypothyroidism, GERD, and gout who presents to the ED with?increased SOB productive and difficulty breathing. Pt will be admitted to the hospital for treatment and further evaluation of acute on chronic hypoxic respiratory failure in the setting of COPD exacerbation. Acute on chronic hypoxic respiratory failure in the setting of COPD exacerbation Pt with SOB, difficulty breathing, desatting to 83 on home 2L O2 Two recent similar hospitalizations this month where tested positive for RSV and then flu A, last discharge 2 days ago Will treat with Solu-Medrol, DuoNebs, and guaifenesin No sepsis: CXR negative for pneumonia, no indication for antibiotics at this time Titrate supplemental O2 >92, pt on 2L home O2, wean as tolerated Monitor respiratory status CAD Continue aspirin, statin HTN Continue carvedilol Insulin-dependent type 2 diabetes Sliding-scale insulin, Lantus Diabetic diet Peripheral neuropathy Continue gabapentin Hypothyroidism Continue levothyroxine Gout Continue allopurinol Full Code Attending:?Dr. Hancock DVT Prophylaxis: Lovenox Pt will require a hospitalization of at least two nights for treatment of?acute on chronic hypoxic respiratory failure in the setting of acute COPD exacerbation. Given that pt was recently discharged from hospital twice this month for similar symptoms secondary to an RSV and flu infections, pt is at risk for further rapid decompensation without hospital level care for administration of IV steroids, breathing treatments, and supplemental oxygen with close monitoring of respiratory status. Quality Stroke Does the patient have a stroke diagnosis?: No VTE Prior VTE?: No VTE Risk Level:: Medical - moderate - high VTE Device Contraindication: Treatment Not Indicated VTE Drug Contraindication: N/A - Med Ordered
--- OUTSIDE RECORDS SUMMARY | 2024-04-21 14:51 | XMS_ITS | Encounter Summary ---
Author Organization [employer] Address [address] [place] [address] 7 [place] [address] Care Team Providers Care Salt Operator Name Role Phone Name, Bobby GRADY Primary Care Provider [phone] Reason for Visit * Reason Onset Date Comments Med Refill 03/09/2024 Encounter Details Date Type Department Care Team ([facility] st Contact Info) Description 03/09/2024 Telephone [facility] [address] [place] [address] Name, MD Bobby [address] [place] [address] Med Refill Social History Tobacco Use Types Packs/Day Years Used Date Smoking Tobacco: Every Day Cigarettes Passive Smoke Exposure: Current Smokeless Tobacco: Current Alcohol Use Standard Drinks/Week Comments Never 0 (1 standard drink = 0.6 oz pur e alcohol) Alcohol Answer Date Recorded Frequency of Alcohol Consumption Not on file 09/30/2023 Average Number of Drinks Not on file 024 Frequency of Binge Drinking Not on file 05/2023 Score 0 09/30/2023 Depression Answer Date Recorded Patient Health Questionnaire-9 Score 0 06/19/2023 Patient Health Questionnaire-9 Score 0 06/19/2023 Last PHQ-9: Questionnaire Data Not on file 0 06/19/2023 Housing Stability Answer Date Recorded What is your housing situation today? I have marian hancock 06/19/[address] you li ve. Do you have problems with any of the following? None of the above 06/19/2023 Food Insecurity Answer Date Recorded Within the past 12 months, y ou worried that your food would run out before you got money to buy more: Never True 06/19/2023 Within the past 12 months,th e food you bought just didn't last and you didn't have enough money to get more: Never True Transportation Answer Date Recorded In the past 12 months, has l ack of transportation kept you from medical appts, meetings, work or from getting things needed for daily living? No 06/19/2023 Utilities Answer Date Recorded In the past 12 months, has t he [employer], gas, oil or water [employer] threatened to shut off services in your home? No 06/19/2023 Depression Answer Date Recorded Patient Health Questionnaire-2 Score 0 06/19/2023 Comments Unknown Sex and Gender Information Value Date Recorded Sex Assigned at Female 01/27/2022 10:21 AM EDT Legal Sex Female 10:21 AM EDT Gender Identity Female 01/27/2022 10:21 AM EDT Sexual Orientation Straight 01/27/2022 10 :21 AM EDT documented as of this encounter Miscellaneous Notes * Telephone Encounter - Tamia Randle LPN - 03/09/2024 10:47 AM EST Medication pended to PCP. * Telephone Encounter - Roderick Sam - 03/09/2024 10:46 AM EST Tc from pt requesting a refill for ipratropium-albuterol (Duo-Neb) 0.5-2.5 mg/3 mL nebulizer solution documented in this encounter Plan of Treatment Upcoming Encounters Date Type Department Care Team (Late st Contact Info) Description 04/27/2024 10:30 AM EST Office Visit [facility] [address] [place] [address] Zulma Kitchen CNP 230 [place] [address] 05/04/2024 9:00 AM EST Office Visit [facility] [address] [place] [address] Name, MD Bobby [address] [place] [address] 06/17/2024 10:00 AM EDT Telemedicine [address] [address] Skye Melton, HODA documented as of this encounter Goals Goal Patient Goal Type Associated Problems Recent Progress Patient-Stated? Author Smoking cessation General No Inga Magaña, PharmD documented as of this encounter Visit Diagnoses Not on filedocumented in this encounter Additional Health Concerns Assessment Noted Time PHQ-9 Depression Total Score: 0 06/19/19 24 10:09 AM EDT documented as of this encounter Care Teams Salt Operator Relationship Specialty Start Date End Date Name, MD Bobby [address] [place] [phone] PCP - General Family Medicine 06/01/15 documented as of this encounter
--- OUTSIDE RECORDS SUMMARY | 2024-04-21 14:51 | XMS_ITS | Encounter Summary ---
Author Organization [employer] Address [address] [facility] 7t [place] [address] Care Team Providers Care Landcare Facilitator Name Role Phone Name, Bobby GRADY Primary Care Provider [phone] Reason for Visit * Reason Onset Date Comments Hospital Follow-up 04/11/2024 Encounter Details Date Type Department Care Team ([facility] st Contact Info) Description 04/11/2024 Telephone [facility] 230 [place] [address] Name, MD Bobby 230 [place] [address] Hospital Follow-up Social History Tobacco Use Types Packs/Day Years [...] the past 12 months, has t he [employer], gas, oil or water company threatened to shut off services in your [...] encounter Miscellaneous Notes * Telephone Encounter - Patricia Campos RN - 04/12/2024 11:48 AM EST TC to pt to schedule HDF after [facility] admission from 04/07/24-04/12/24 dx RSV and COPD. Pt reports I feel like I got hit by a truck. RSV is no joke . Pt denies any fever, chills, chest pain, headache, dizziness. Pt reports she is SOB but not more than her baseline and reports she is not distressed. Pt reports dry cough. Pt reports she was discharged home with 2 days worth of prednisone. Pt booked for first available HDF appointment on 04/27/24 at 10:30 with Zulma Kitchen. Pt advised if she becomes short of breath or has worsening symptoms to come to [facility] to be evaluated or return to the ED. Pt agrees to plan and denies any further questions or concerns at this time. * Telephone Encounter - Patricia Campos RN - 04/11/2024 3:08 PM EST TC placed to pt to do a status check and schedule HDF. Pt was expected to be discharged today but pt reports the respiratory therapist states she needs one more day. Pt reports she is on 3 liter of O2 at rest and when she was on walk with respiratory therapist, they had to increase to 6 liters of O2 by the time they made it back to her room. Pt reports the hospital physician said she would definitely be discharged tomorrow. Message postponed to 04/12/24 to call pt to schedule HDF. * Telephone Encounter - Yared Eusebio - 04/11/2024 12:58 PM EST TC from pt reported having RSV and COPD. Currently at [facility] since 04/07/24 Pt getting discharged today 04/11/24 Pt states needs to see provider within 48 hrs. documented in this encounter Plan of Treatment Upcoming Encounters Date Type Department Care Team (Late st Contact Info) Description 04/27/2024 10:30 AM EST Office Visit [facility] [address] [place] [address] Zulma Kitchen CNP [address] [place] [address] 05/04/2024 9:00 AM EST Office Visit [address] [address] Name, MD Bobby [address] [place] [address] 06/17/2024 10:00 AM EDT Telemedicine [address] [address] Skye Melton, HODA documented as of this encounter Goals Goal Patient Goal Type Associated Problems Recent Progress Patient-Stated? Author Smoking cessation General No Inga Magaña, MiltonD documented as of this encounter Visit Diagnoses Not on filedocumented in this encounter Additional Health Concerns Assessment Noted Time PHQ-9 Depression Total Score: 0 06/19/19 24 10:09 AM EDT documented as of this encounter Care Teams Landcare Facilitator Relationship Specialty Start Date End Date Name, MD Bobby [address] [place] [address] PCP - General Family Medicine 06/01/15 documented as of this encounter
--- OUTSIDE RECORDS SUMMARY | 2024-04-21 14:51 | XMS_ITS | Encounter Summary ---
Author Organization [employer] Address [address] [facility] 7t [place] [address] Care Team Providers Care Compound Coating Machine Offbearer Name Role Phone Name, Bobby GRADY Primary Care Provider [phone] Inga Magaña PharmD Unavailable [phone] Reason for Visit * Reason Onset Date Comments Nurse Triage 04/07/2023 Encounter Details Date Type Department Care Team (Late st Contact Info) Description 04/07/2023 Telephone [facility] [address] [place] [address] Name, MD Bobby [address] [place] [address] Nurse Triage Social History Tobacco Use Types Packs/Day Years [...] the past 12 months, has t he electric, gas, oil or water company threatened to [...] encounter Miscellaneous Notes * Telephone Encounter - Roderick Sam - 04/07/2023 9:39 AM EST Symptom: Breathing Trouble Outcome: Schedule an urgent appointment (within 1 hour) or talk to a nurse or provider soon Reason: Caller denied all higher acuity questions The caller accepted this outcome Please contact at [phone] documented in this encounter Plan of Treatment Upcoming Encounters Date Type Department Care Team (Late st Contact Info) Description 04/27/2024 10:30 AM EST Office Visit [facility] [address] [place] [address] Zulma Kitchen CNP [address] [place] [address] 05/04/2024 9:00 AM EST Office Visit [address] [address] Name, MD Bobby [address] [place] [address] 06/17/2024 10:00 AM EDT Telemedicine [facility] [address] [place] [address] Skye Melton, HODA documented as of this encounter Goals Goal Patient Goal Type Associated Problems Recent Progress Patient-Stated? Author Smoking cessation General No Inga Magaña, PharmD documented as of this encounter Visit Diagnoses Not on filedocumented in this encounter Additional Health Concerns Assessment Noted Time PHQ-9 Depression Total Score: 0 03/11/20 22 11:47 AM EST documented as of this encounter Care Teams Compound Coating Machine Offbearer Relationship Specialty Start Date End Date Name, MD Bobby [address] [place] [address] PCP - General Family Medicine 06/01/15 Inga Magaña, PharmD [address] [place] [address] Pharmacist Internal Medicine 01/07/23 09/29/23 documented as of this encounter
--- OUTSIDE RECORDS SUMMARY | 2024-04-21 14:51 | XMS_ITS | Encounter Summary ---
Author Organization [employer] Address [address] [place] [address] 7t [place] [address] Care Team Providers Care Gaggerman Name Role Phone Name, Bobby GRADY Primary Care Provider [phone] Inga Magaña PharmD Unavailable [phone] Reason for Visit * Reason Comments Med Refill Encounter Details Date Type Department Care Team (Late st Contact Info) Description 10/03/2022 Refill [facility] [address] [place] [address] Name, MD Bobby [address] [place] [address] Lumbar radiculopathy Social History Tobacco Use Types Packs/Day Years Used Date Smoking Tobacco: Every Day Cigarettes Smokeless Tobacco: Current Alcohol Use Standard Drinks/Week Comments Never 0 (1 standard drink = 0.6 oz pur e alcohol) Depression Answer Date Recorded Patient Health Questionnaire-9 Score 0 03/11/2022 Depression Answer Date Recorded Patient Health Questionnaire-2 Score 0 03/11/2022 Comments Unknown Sex and Gender Information Value Date Recorded Sex Assigned at Female 01/27/2022 10:21 AM EDT Legal Sex Female 10:21 AM EDT Gender Identity Female 01/27/2022 10:21 AM EDT Sexual Orientation Straight 01/27/2022 10 :21 AM EDT COVID-19 Exposure Response Date Recorded In the last 10 days, have yo u been in contact with someone who was confirmed or suspected to have Coronavirus/COVID-19? No / Unsure 09/29/2022 3:29 PM EDT documented as of this encounter Plan of Treatment Upcoming Encounters Date Type Department Care Team (Late st Contact Info) Description 04/27/2024 10:30 AM EST Office Visit [address] [address] Zulma Kitchen CNP [address] [place] [address] 05/04/2024 9:00 AM EST Office Visit [address] [address] Name, MD Bobby [address] [place] [address] 06/17/2024 10:00 AM EDT Telemedicine [address] [phone] Skye Melton, HODA documented as of this encounter Visit Diagnoses Diagnosis Lumbar radiculopathy Thoracic or lumbosacral neuritis or radiculitis, unspecified documented in this encounter Additional Health Concerns Assessment Noted Time PHQ-9 Depression Total Score: 0 03/11/20 22 11:47 AM EST documented as of this encounter Care Teams Gaggerman Relationship Specialty Start Date End Date Name, MD Bobby [address] [place] [address] PCP - General Family Medicine 06/01/15 Inga Magaña PharmD [address] [place] [address] Pharmacist Internal Medicine 01/07/23 09/29/23 documented as of this encounter
--- OUTSIDE RECORDS SUMMARY | 2024-04-21 14:51 | XMS_ITS | Encounter Summary ---
Author Organization [employer] Address [address] [facility] 7t [place] [address] Care Team Providers Care General Accounting Clerk Name Role Phone Name, Bobby GRADY Primary Care Provider [phone] Inga Magaña PharmD Unavailable [phone] Reason for Visit * Reason Onset Date Comments Med Refill 01/20/2023 Encounter Details Date Type Department Care Team ([facility] st Contact Info) Description 01/20/2023 Telephone [facility] [address] [place] [address] Name, MD Bobby [address] [place] [address] Med Refill Social History Tobacco Use Types Packs/Day Years Used Date Smoking Tobacco: Every Day Cigarettes Passive Smoke Exposure: Current Smokeless Tobacco: Current Alcohol Use Standard Drinks/Week Comments Never 0 (1 standard drink = 0.6 oz pur e alcohol) Depression Answer Date Recorded Patient Health Questionnaire-9 Score 0 03/11/2022 Housing Stability Answer Date Recorded What is your housing situation today? I have marian hancock 01/13/[address] you li ve. Do you have problems with any of the following? None of the above 01/13/2023 Food Insecurity Answer Date Recorded Within the past 12 months, y ou worried that your food would run out before you got money to buy more: Never True 01/13/2023 Within the past 12 months,th e food you bought just didn't last and you didn't have enough money to get more: Never True Transportation Answer Date Recorded In the past 12 months, has l ack of transportation kept you from medical appts, meetings, work or from getting things needed for daily living? No 01/13/2023 Utilities Answer Date Recorded In the past 12 months, has t he electric, gas, oil or water company threatened to shut off services in your home? No 01/13/2023 Depression Answer Date Recorded Patient Health Questionnaire-2 Score 0 03/11/2022 Comments Unknown Sex and Gender Information Value Date Recorded Sex Assigned at Female 01/27/2022 10:21 AM EDT Legal Sex Female 10:21 AM EDT Gender Identity Female 01/27/2022 10:21 AM EDT Sexual Orientation Straight 01/27/2022 10 :21 AM EDT documented as of this encounter Miscellaneous Notes * Telephone Encounter - Tamia Randle LPN - 01/20/2023 3:40 PM EDT Medication pended to PCP. * Telephone Encounter - Joe Padron - 01/20/2023 3:24 PM EDT Tc from patient requesting a med refill for medication insulin lispro (HumaLOG) 100 UNIT/ML injection. PCP documented in this encounter Plan of Treatment Upcoming Encounters Date Type Department Care Team (Late st Contact Info) Description 04/27/2024 10:30 AM EST Office Visit [facility] [address] [place] [address] Zulma Kitchen CNP [address] [place] [address] 05/04/2024 9:00 AM EST Office Visit [facility] [address] [place] [address] Name, MD Bobby [address] [place] [address] 06/17/2024 10:00 AM EDT Telemedicine [address] [address] Skye Melton, HODA documented as of this encounter Goals Goal Patient Goal Type Associated Problems Recent Progress Patient-Stated? Author Smoking cessation General No Inga Magaña, Lucio documented as of this encounter Visit Diagnoses Not on filedocumented in this encounter Additional Health Concerns Assessment Noted Time PHQ-9 Depression Total Score: 0 03/11/20 22 11:47 AM EST documented as of this encounter Care Teams General Accounting Clerk Relationship Specialty Start Date End Date Name, MD Bobby [address] [place] [address] PCP - General Family Medicine 06/01/15 Inga Magaña, Lucio [address] [place] [address] Pharmacist Internal Medicine 01/07/23 09/29/23 documented as of this encounter
--- OUTSIDE RECORDS SUMMARY | 2024-04-21 14:51 | XMS_ITS | Encounter Summary ---
Author Organization [employer] Address [address] [facility] 7t [place] [address] Care Team Providers Care Impersonator Character Name Role Phone Name, Bobby GRADY Primary Care Provider [phone] Reason for Visit * Reason Onset Date Comments Durable Medical Equipment 04/14/2024 Encounter Details Date Type Department Care Team ([facility] st Contact Info) Description 04/14/[address] [facility] [address] [place] [address] Name, MD Bobby [address] [place] [address] Durable Medical Equipment Social History Tobacco Use Types Packs/Day Years [...] the past 12 months, has t he [employer], [employer], oil or water [email or web address] threatened to shut off services in your [...] encounter Miscellaneous Notes * Telephone Encounter - Marielle Aguila - 04/19/2024 1:27 PM EST DME RX for Diapers/pull ups and Disposable underpads/bedpads generated and placed on providers deskfor review and signature. * Telephone Encounter - Marielle Aguila - 04/15/2024 2:41 PM EST Pt req DME incontinence supplies. In order to proceed with DME, insurance requires current dx and notes to support the need. Please advise if able to addend most recent note or if pt will be evaluated at next appt. Thank you * Telephone Encounter - Jose F White - 04/14/2024 10:22 AM EST Tc from pt requesting is currently bedridden and requesting DME. DME: Disposable bed pads Depends (L) If any questions you can contact pt at [phone]. documented in this encounter Plan of Treatment Upcoming Encounters Date Type Department Care Team (Late st Contact Info) Description 04/27/2024 10:30 AM EST Office Visit [address] [phone] Zulma Kitchen CNP [address] [place] [address] 05/04/2024 9:00 AM EST Office Visit [address] [phone] Name, MD Bobby [address] [place] [phone] 06/17/2024 10:00 AM EDT Telemedicine [address] [phone] Skye Melton, RN documented as of this encounter Goals Goal Patient Goal Type Associated Problems Recent Progress Patient-Stated? Author Smoking cessation General No Inga Magaña, PharmD documented as of this encounter Visit Diagnoses Not on filedocumented in this encounter Additional Health Concerns Assessment Noted Time PHQ-9 Depression Total Score: 0 06/19/19 24 10:09 AM EDT documented as of this encounter Care Teams Impersonator Character Relationship Specialty Start Date End Date Bobby David MD [address] [place] [address] PCP - General Family Medicine 06/01/15 documented as of this encounter
--- OUTSIDE RECORDS SUMMARY | 2024-04-21 14:51 | XMS_ITS | Encounter Summary ---
Author Organization [employer] Address [address] [facility] [address]t [place] [address] Care Team Providers Care Plate Worker Helper Name Role Phone Name, Bobby GRADY Primary Care Provider [phone] Encounter Details Date Type Department Care Team ([facility] st Contact Info) Description 04/04/2024 9:30 AM EST Office Visit [facility] [address] [place] [address] Alexandra Hernandez NP [address] [place] [address] Acute pain of right shoulder (Primary Dx); COPD exacerbation (CMS/HCC); Tobacco dependence syndrome Social History Tobacco Use Types Packs/Day Years [...] the past 12 months, has t he [employer], gas, oil or water company threatened to [...] AM EDT documented as of this encounter Last Filed Vital Signs Vital Sign Reading Time Taken Comments Blood Pressure 118/70 04/04/2024 9:29 AM EST Pulse 94 04/04/2024 9:29 AM EST Temperature 37 ??C (98.6 ??F) 04/04/2024 9:29 AM EST Respiratory Rate 18 04/04/2024 9:29 AM EST Oxygen Saturation 96% 04/04/2024 9:29 AM EST Inhaled Oxygen Concentration - - Weight 78.2 kg (172 lb 6.4 oz) 04/04/2024 9:29 A M EST Height 165.1 cm (5' 5 ) 04/04/2024 9:29 AM EST Body Mass Index 28.69 04/04/2024 9:29 AM EST documented in this encounter Progress Notes * Alexandra Hernandez NP - 04/04/2024 9:30 AM EST Subjective: Marita Lawrence is a 63 y.o. female who presents to the office for a sick visit. Right shoulder pain: HPI Right sided posterior shoulder pain with bursitis under right breast, felt like an ice pick throughit 3 days ago, not worse, coughing exacerbates pain, feels as if broke rib, but did not fall 1 week of what feels like a COPD exaerbation, increased phlegm, coughing, approximately 2 months ago last treatment, No fever, possible sick exposure , has tested twice and negative No body aches no fever Smokes cigarettes 10 per day, way down for pt, has patches at home , in care with pulmonary Right lateral rib pain with a deep breath Using all inhalers as prescribed Duoneb and combivent work best Patient Active Problem List Diagnosis Acute ST segment elevation myocardial infarction (CMS/HCC) Angioedema due to angiotensin converting enzyme inhibitor (IGNACIO-I) Hypertension Chronic painful diabetic neuropathy ([facility]/HCC) Acute exacerbation of chronic obstructive pulmonary disease ([facility]/HCC) Arteriosclerosis of coronary artery Hyperglycemia Irritable bowel syndrome Eruption due to drug Gastroesophageal reflux disease Increased lactic acid level Bilateral nephrolithiasis Lumbar radiculopathy Macular degeneration Polyp of colon Polyneuropathy due to type 2 diabetes mellitus ([facility]/HCC) Osteopenia Obesity Microalbuminuria Pure hypercholesterolemia S/P coronary artery stent placement Seasonal allergic rhinitis Tobacco dependence syndrome Tubular adenoma of colon Allergy-induced asthma Atelectasis Cardiomyopathy ([facility]) CHF (congestive heart failure) ([facility]) COVID-19 Fracture of metatarsal bone Hyperlipidemia with target LDL less than 70 Hypoxia Increased anion gap metabolic acidosis Lesion of bronchus Lumbar post-laminectomy syndrome Lumbar spondylosis Microscopic hematuria Multinodular goiter Muscle spasm of back MCKAY (obstructive sleep apnea) Pneumonia Positive blood culture Pulmonary nodules Right radial head fracture Sacroiliac joint dysfunction of left side Tobacco abuse Tracheal anomaly Tubular adenoma Vitamin D deficiency Acute respiratory failure with hypoxia ([facility]) COPD (chronic obstructive pulmonary disease) ([facility]) H/O total thyroidectomy Other chest pain Cough Pre-op chest exam Hypothyroidism, postsurgical Opioid dependence, daily use ([facility]/HCC) Smokes tobacco daily Nephrolithiasis HLD (hyperlipidemia) Hypothyroidism Constipation Family history of colon cancer History of colonic polyps CAD in havasupai artery Encounter for screening for malignant neoplasm of colon Acute pain of right shoulder COPD exacerbation ([facility]/HCC) Review of Systems Constitutional: Negative for activity change, appetite change, chills, fever and unexpected weight change. Respiratory: Positive for cough and shortness of breath. Negative for apnea, choking and chest tightness. Cardiovascular: Negative for chest pain and leg swelling. Gastrointestinal: Negative for abdominal distention. Musculoskeletal: Negative for arthralgias. Neurological: Positive for headaches. Allergies Allergen Reactions Ignacio Inhibitors Anaphylaxis Other reaction(s): anaphlaxis, ANGIO EDEMA Other Reaction(s): ANGIO EDEMA Enalapril Other reaction(s): Anaphylaxis Erythromycin Anaphylaxis Other reaction(s): Hives/Urticaria, pustules over entire body, Unknown Other Reaction(s): Unknown Erythromycin Base Other reaction(s): HIVES ALL OVER Other Reaction(s): HIVES ALL OVER Hydromorphone Other reaction(s): TINGLING, PT DOES NOT LIKE THE FEELING MED GIVES HER Other reaction(s): Unknown Outside Source Comment: Other reaction(s): TINGLING, PT DOES NOT LIKE THE FEELING MED GIVES HER Other reaction(s): TINGLING, PT DOES NOT LIKE THE FEELING MED GIVES HER Other Reaction(s): TINGLING, PT DOES NOT LIKE THE FEELING MED GIVES HER Other Reaction(s): Not available Azithromycin Other Reaction(s): Not available Metformin Other reaction(s): lactic acidosis Other reaction(s): Unknown Outside Source Comment: Other reaction(s): lactic acidosis Other Reaction(s): Not available Metoprolol Unknown Objective: Visit Vitals BP 118/70 (BP Location: Left arm, Patient Position: Sitting, BP Cuff Size: Large adult) Pulse 94 Temp 98.6 ??F (37 ??C) (Oral) Resp 18 Ht 5' 5 (1.651 m) Wt 172 lb 6.4 oz (78.2 kg) SpO2 96% BMI 28.69 kg/m?? Smoking Status Every Day BSA 1.89 m?? Physical Exam Vitals reviewed. Constitutional: Appearance: She is obese. HENT: Head: Normocephalic and atraumatic. Nose: Nose normal. Eyes: Conjunctiva/sclera: Conjunctivae normal. Cardiovascular: Rate and Rhythm: Normal rate and regular rhythm. Pulmonary: Breath sounds: Wheezing, rhonchi and rales present. Chest: Chest wall: Tenderness present. Musculoskeletal: Cervical back: Normal range of motion and neck supple. Neurological: General: No focal deficit present. Mental Status: She is alert. Assessment/Plan: Problem List Items Addressed This Visit Tobacco dependence syndrome Current Assessment & Plan Reviewed relationship between copd and smoking, Pt aware, discusses regularly with pulm and pcp Has patches Acute pain of right shoulder - Primary Current Assessment & Plan X-ray negative for fracture, suspect mks strain from coughing Reviewed bracing while coughing Relevant Orders XR Chest 2 Views (Completed) COPD exacerbation (CMS/[facility]) Current Assessment & Plan Pt endorses increased sputum production, increased sob, Neg covid tests at home Chest x-ray neg- in care with pulmonary, Extensive conversation about smoking cessation Will treat with prednisone burst/taper and doxycylcine Relevant Medications predniSONE (Deltasone) 20 MG tablet doxycycline (Vibra-Tabs) 100 MG tablet Current Outpatient Medications Medication Sig Dispense Refill albuterol 108 (90 Base) MCG/ACT inhaler Inhale 2 puffs every 4 (four) hours if needed. Alcohol Swabs (Alcohol Prep) 70 % pads USE THREE TIMES DAILY Aspirin Adult Low Strength 81 MG EC tablet TAKE 1 TABLET BY MOUTH EVERY DAY 90 tablet 1 atorvastatin (Lipitor) 80 MG tablet Take 1 tablet by mouth at bed time. BD Pen Needle Maria Guadalupe U/F 32G X 4 MM misc USE DIRECTED FIVE TIMES DAILY 200 each 11 Blood Glucose Monitoring Suppl (ONE TOUCH ULTRA 2) w/Device kit USE TO TEST BLOOD SUGAR THREE TIMESDAILY 1 kit 0 calcitriol (Rocaltrol) 0.25 MCG capsule Take 0.25 mcg by mouth in the morning. carvedilol (Coreg) 6.25 MG tablet Take 1 tablet by oral route 2 times every day with food celecoxib (CeleBREX) 200 MG capsule TAKE 1 CAPSULE BY MOUTH TWICE DAILY WITH FOOD AND A FULL GLASS OF WATER NEEDED FOR PAIN cetirizine (ZyrTEC) 10 MG tablet TAKE 1 TABLET BY MOUTH EVERY DAY 90 tablet 1 Combivent Respimat 20-100 MCG/ACT inhaler INHALE 1 PUFF 4 TIMES A DAY, MAY TAKE ADDITIONAL PUFFS ASNEEDED. (MAX OF 6 PUFFS PER DAY) 4 g 5 COVID-19 At Home Antigen Test (QuickVue At-Home Covid-19 Test) kit as directed D3 Super Strength 50 MCG (2000 UT) capsule Take 1 capsule by mouth 1 (one) time each day. docusate sodium (Colace) 100 MG capsule TAKE 1 CAPSULE BY MOUTH EVERY DAY AT BEDTIME NEEDED 90 capsule 0 doxycycline (Vibra-Tabs) 100 MG tablet Take 1 tablet (100 mg) by mouth 2 times daily for 7 days. Take with a full glass of water and do not lie down for at least 30 minutes after. 14 tablet 0 dulaglutide (Trulicity) 1.5 MG/0.5ML solution pen-injector Inject 1.5 mg under the skin 1 (one) time per week. 2 mL 11 empagliflozin (Jardiance) 10 MG Take 1 tablet (10 mg) by mouth Once per day. 30 tablet 11 fluticasone (Flonase) 50 MCG/ACT nasal spray INSTILL 2 SPRAYS IN EACH NOSTRIL ONCE DAILY 16 g 3 insulin glargine (Lantus SoloStar) 100 UNIT/ML pen INJECT 35 UNITS SUBCUTANEOUSLY TWICE DAILY IN THE MORNING AND IN THE EVENING 15 mL 5 ipratropium-albuterol (Duo-Neb) 0.5-2.5 mg/3 mL nebulizer solution INHALE 1 AMPULE USING A NEBULIZER FOUR TIMES DAILY 360 mL 3 levothyroxine (Synthroid) 125 MCG tablet Take 1 tablet (125 mcg) by mouth before breakfast. 30 tablet 11 lidocaine-prilocaine (Emla) 2.5-2.5 % cream APPLY TO THE AFFECTED AREA(S) ONCE FOR PAIN. APPLY 15-30 MINUTES PRIOR TO QUTENZA ON 10/06/22 methocarbamol (Robaxin) 750 MG tablet Take 1 tablet (750 mg) by mouth every 8 (eight) hours. 120 tablet 1 montelukast (Singulair) 10 MG tablet TAKE 1 TABLET BY MOUTH EVERY EVENING 90 tablet 1 naloxone (Narcan) 4 mg/0.1 mL nasal spray Administer 0.1 mL into affected nostril(s). nicotine (Nicoderm CQ) 14 MG/24HR patch Place 1 patch on the skin 1 (one) time each day at the sametime. 30 patch 2 NovoLOG FLEXPEN 100 UNIT/ML pen INJECT 6 TO 10 UNITS SUBCUTANEOUSLY BEFORE MEALS AND SNACKS DIRECTED omeprazole (PriLOSEC) [address] capsule TAKE 1 CAPSULE BY MOUTH TWICE DAILY 30 MINUTES BEFORE MEALS 60 capsule 0 OneTouch Delica Lancets 33G misc USE TO TEST BLOOD SUGAR THREE TIMES DAILY 100 each 5 OneTouch Ultra Test test strip USE DIRECTED TO TEST BLOOD SUGAR THREE TIMES DAILY 50 strip 5 oxyCODONE-acetaminophen (Percocet) 7.5-325 MG tablet TAKE 1 TABLET BY MOUTH EVERY 6 HOURS NEEDEDFOR SEVERE PAIN FOR UP TO 28 DAYS 112 tablet 0 predniSONE (Deltasone) 20 MG tablet Take 2 tablets (40 mg) by mouth Once per day for 4 days, THEN 1tablet (20 mg) Once per day for 4 days, THEN 0.5 tablets (10 mg) Once per day for 4 days. 14 tablet0 pregabalin (Lyrica) 100 MG capsule TAKE 1 CAPSULE BY MOUTH TWICE DAILY FOR 7 DAYS THEN INCREASE TO 1 CAPSULE THREE TIMES DAILY FOR 21 DAYS 77 capsule 0 pyridoxine (Vitamin B-6) 100 MG tablet Take 1 tablet by mouth 1 (one) time each day. Roflumilast 500 MCG tablet Take 1 tablet by mouth at bed time. senna (Senokot) 8.6 MG tablet TAKE 2 TABLETS BY MOUTH EVERY DAY 180 tablet 2 SM Calcium Citrate+Vit D3 Max tablet TAKE 1 TABLET BY MOUTH 2 TIMES DAILY 60 tablet 3 tamsulosin (Flomax) 0.4 MG 24 hr capsule TAKE 1 CAPSULE BY MOUTH ONCE DAILY AT BEDTIME FOR 14 DAYS Trelegy Ellipta 100-62.5-25 MCG/ACT aerosol powder INHALE 1 PUFF EVERY DAY AT THE SAME TIME TRUEplus Lancets 33G misc Check BG twice daily 100 each 11 Varenicline Tartrate, Starter, (Chantix Starting Month ) 0.5 MG X 11 & 1 MG X 42 tablet therapy pack Take 0.5 mg by mouth in the morning for 3 days, THEN 0.5 mg 2 times daily for 4 days, THEN 1 mg 2 times daily. 53 each 0 No current facility-administered medications for this visit. documented in this encounter Miscellaneous Notes * Assessment & Plan Note - Alexandra Hernandez NP - 04/04/2024 12:57 PM ESTAssociated Problem(s): Tobacco dependence syndrome Reviewed relationship between copd and smoking, Pt aware, discusses regularly with pulm and pcp Has patches * Assessment & Plan Note - Alexandra Hernandez NP - 04/04/2024 12:56 PM ESTAssociated Problem(s): COPD exacerbation (CMS/HCC) Pt endorses increased sputum production, increased sob, Neg covid tests at home Chest x-ray neg- in care with pulmonary, Extensive conversation about smoking cessation Will treat with prednisone burst/taper and doxycylcine * Assessment & Plan Note - Alexandra Hernandez NP - 04/04/2024 12:54 PM ESTAssociated Problem(s): Acute pain of right shoulder X-ray negative for fracture, suspect mks strain from coughing Reviewed bracing while coughing documented in this encounter Plan of Treatment Upcoming Encounters Date Type Department Care Team (Late st Contact Info) Description 04/27/2024 10:30 AM EST Office Visit [address] [address] Zulma Kitchen CNP [address] [place] [id number] 05/04/2024 9:00 AM EST Office Visit [address] [address] Name, MD Bobby [address] [place] [address] 06/17/2024 10:00 AM EDT Telemedicine [address] [address] Skye Melton RN documented as of this encounter Goals Goal Patient Goal Type Associated Problems Recent Progress Patient-Stated? Author Smoking cessation General No Inga Magaña, PharmD documented as of this encounter Procedures Procedure Name Priority Date/Time Associated Diagnosis Comments XR CHEST 2 VIEWS Routine 04/04/2024 10:0 6 AM EST Acute pain of right shoulder documented in this encounter Results * XR Chest 2 Views (04/04/2024 10:06 AM EST) Anatomical Region Laterality Modality Chest Radiographic Ludivina ging 04/04/2024 10:0 6 AM EST Narrative 04/04/2024 10:37 AM EST ?[facility] [facility] ?[address] ?[place] [address] ?XRay Report ? Signed ? Patient: Ashley Melinda,Marita M ?MR#: [id number] ?? [id number] ? : 1960 ?Acct:[id number] ? Age/Sex: 63 / F ?ADM Date: 04/04/24 ? Loc: HO.HHCX ? Attending Dr: Alexandra Hernandez DIETARY TECH ? Ordering Physician: Alexandra Hernandez NP ?? Date of Service: 04/04/24 ?? Procedure(s): XR chest 2V ?? Accession Number(s): [id number] ? cc: Alexandra Hernandez NP ? EXAMINATION: ?? XR CHEST ? CLINICAL INFORMATION: ?? right sided pain with breathing, fractured ribs? copd ? COMPARISON: ?? Chest 12/24/2023 ? TECHNIQUE: ?? 2 views of the chest were obtained. ? FINDINGS: ?? No significant abnormality is noted involving the heart, lungs, ?? mediastinum, bony thorax or soft tissues. ? XR/XR chest 2V ?? IMPRESSION: ?? Unremarkable chest examination. ? Electronically signed by: ??Roe Vega MD ??04/04/2024 10:34 AM EST RP ? Dictated By: ?Roe Vega MD ? Signed By: ?<Electronically signed by Roe Vega MD in OV> ?04/04/24 1034 ? DD/ 1006 ? TD/TT: 04/04/24 1015 ? Geometry Professor: MSM ? Procedure Note Elie Mercado - 04/04/[address] [address] XRay Report Signed Patient: Marita Zapata MMR#: [id number] : 1960Acct:[id number] Age/Sex: 63 / FADM Date: 04/04/24 Loc: HO.HHCX Attending Dr: Alexandra Hernandez DIETARY TECH Ordering Physician: Alexandra Hernandez NP Date of Service: 04/04/24 Procedure(s): XR chest 2V Accession Number(s): [id number] cc: Alexandra Hernandez DIETARY TECH EXAMINATION: XR CHEST CLINICAL INFORMATION: right sided pain with breathing, fractured ribs? copd COMPARISON: Chest 12/24/2023 TECHNIQUE: 2 views of the chest were obtained. FINDINGS: No significant abnormality is noted involving the heart, lungs, mediastinum, bony thorax or soft tissues. XR/XR chest 2V IMPRESSION: Unremarkable chest examination. Electronically signed by: Roe Vega MD 04/04/2024 10:34 AM EST Dictated By: Roe Vega MD Signed By: <Electronically signed by Roe Vega MD in OV> 04/04/24 1034 DD/ 1006 TD/TT: 04/04/24 1015 Geometry Professor: ABEBA Alexandra Hernandez DIETARY TECH IMG XR PROCEDURES Edited Result - Final documented in this encounter Visit Diagnoses Diagnosis Acute pain of right shoulder- Primary COPD exacerbation (CMS/HCC) Obstructive chronic bronchitis with exacerbation Tobacco dependence syndrome Tobacco use disorder documented in this encounter Additional Health Concerns Assessment Noted Time PHQ-9 Depression Total Score: 0 06/19/19 24 10:09 AM EDT documented as of this encounter Care Teams Plate Worker Helper Relationship Specialty Start Date End Date Name, MD Bobby [address] [place] [address] PCP - General Family Medicine 06/01/15 documented as of this encounter
--- OUTSIDE RECORDS SUMMARY | 2024-04-21 14:51 | XMS_ITS | Encounter Summary ---
Author Organization [employer] Address [address] [place] [address] [address]t [place] [address] Care Team Providers Care Supervisor Blood Donor Recruiters Name Role Phone Name, Bobby GRADY Primary Care Provider [phone] Inga Magaña PharmD Unavailable [phone] Reason for Visit * Reason Comments Med Refill Encounter Details Date Type Department Care Team ([facility] Contact Info) Description 11/18/2022 Refill [facility] [address] [place] [address] Name, MD Bobby [address] [place] [address] Type 2 diabetes mellitus without complications (CMS/HCC) Social History Tobacco Use Types Packs/Day Years [...] AM EDT documented as of this encounter Plan of Treatment Upcoming Encounters Date Type Department Care Team (Late Contact Info) Description 04/27/2024 10:30 AM EST Office Visit [facility] MEDICINE [address] [place] [address] Zulma Kitchen, ZENON [address] [place] [address] 05/04/2024 9:00 AM EST Office Visit [facility] MEDICINE [address] [place] [address] Name, [place] [address] 06/17/2024 10:00 AM EDT Telemedicine [facility] MEDICINE [address] [place] [address] Skye Melton RN documented as of this encounter Visit Diagnoses Diagnosis Type 2 diabetes mellitus without complications (CMS/HCC) documented in this encounter Additional Health Concerns Assessment Noted Time PHQ-9 Depression Total Score: 0 03/11/20 22 11:47 AM EST documented as of this encounter Care Teams Supervisor Blood Donor Recruiters Relationship Specialty Start Date End Date Name, MD Bobby [address] [place] [phone] PCP - General Family Medicine 06/01/15 Inga Magaña PharmD [address] [place] [address] Pharmacist Internal Medicine 01/07/23 09/29/23 documented as of this encounter
--- OUTSIDE RECORDS SUMMARY | 2024-04-21 14:51 | XMS_ITS | Encounter Summary ---
Author Organization [employer] Address [address] [place] [address] 7 [place] [address] Care Team Providers Care Car Shunter Name Role Phone Name, Bobby GRADY Primary Care Provider [phone] Reason for Visit * Reason Onset Date Comments Recommend APPLICATIONS MANAGER Tele Tier 2 04/01/2024 Encounter Details Date Type Department Care Team ([facility] st Contact Info) Description 04/01/2024 Telephone [facility] MEDICINE [address] [place] [address] Skye Melton, HODA Recommend APPLICATIONS MANAGER Tele Tier 2 Social History Tobacco Use Types Packs/Day Years [...] encounter Miscellaneous Notes * Telephone Encounter - Skye Melton RN - 04/01/2024 7:30 AM EST What APPLICATIONS MANAGER Tier would you like this patient to be? I recommend Tele Tier 2, please let me know if you agree or would rather patient be in another APPLICATIONS MANAGER Tier. Tier 1 = HIGH RISK, Monthly APPLICATIONS MANAGER visits Tier 2 = MODerate RISK, Q3 Month visits Tier 3 = LOW RISK = Q4-6 month visits documented in this encounter Plan of Treatment Upcoming Encounters Date Type Department Care Team (Late st Contact Info) Description 04/27/2024 10:30 AM EST Office Visit [facility] [address] [place] [address] Zulma Kitchen CNP [address] [place] [address] 05/04/2024 9:00 AM EST Office Visit [address] [address] Name, MD Bobby [address] [place] [address] 06/17/2024 10:00 AM EDT Telemedicine [facility] [address] [place] [address] Skye Melton, HODA documented as of this encounter Goals Goal Patient Goal Type Associated Problems Recent Progress Patient-Stated? Author Smoking cessation General No Inga Magaña, Lucio documented as of this encounter Visit Diagnoses Not on filedocumented in this encounter Additional Health Concerns Assessment Noted Time PHQ-9 Depression Total Score: 0 06/19/19 24 10:09 AM EDT documented as of this encounter Care Teams Car Shunter Relationship Specialty Start Date End Date Name, MD Bobby [address] [place] [address] PCP - General Family Medicine 06/01/15 documented as of this encounter
--- OUTSIDE RECORDS SUMMARY | 2024-04-21 14:51 | XMS_ITS | Encounter Summary ---
Author Organization [employer] Address [address] [facility] [address]t [place] [address] Care Team Providers Care Chain Mender Name Role Phone Name, Bobby GRADY Primary Care Provider [phone] Reason for Visit * Reason Onset Date Comments Nurse Triage 04/06/2024 Encounter Details Date Type Department Care Team ([facility] st Contact Info) Description 04/06/2024 Telephone [facility] MED[facility]INE [address] [place] [address] Name, MD Bobby [address] [place] [address] Nurse Triage Social History Tobacco Use Types [...] encounter Miscellaneous Notes * Telephone Encounter - Kianna Virk RN - 04/06/2024 1:16 PM EST called pt to triage, spoke to pt. pt states seen 2 days ago for breathing difficulty and upper respiratory infection. pt put on Prednisone taper and antibiotics x7 days. pt states was told by provider to call back if no improvement and she has had no improvement. pt speaking in short spurts, and hav ing audible wheezing and distress. advised to seek ER evaluation as soon as possible, and pt is notalone currently. advised not to drive and to go today. advised home care: rest, fluids, steam, humidifier, inhalers and call back for follow up as needed. pt understands and agrees with plan. insurance verified. Protocol Used: Breathing Difficulty (Adult) Protocol-Based Disposition: Go to Office or Video Visit Now Video visit offer not recorded Positive Triage Questions: * Mild difficulty breathing (e.g., minimal/no SOB at rest, SOB with walking, pulse < 100) of new-onset or worse than normal * Longstanding difficulty breathing (e.g., CHF, COPD, emphysema) and worse than normal * All higher-acuity triage questions were negative Care Advice Discussed: * General Care Advice for Breathing Difficulty * Fever Medicines * Fever Medicines - Extra Notes and Warnings * Reasons To Call Back - Severe difficulty breathing occurs - Fever more than 100.4 F (38.0 C) - You become worse * Telephone Encounter - Marni Becky Tran - 04/06/2024 11:37 AM EST Symptom: Breathing Trouble Outcome: Transfer to a nurse or provider NOW! Reason: Struggling for each breath (severe trouble breathing) The caller accepted this outcome. [phone] documented in this encounter Plan of Treatment Upcoming Encounters Date Type Department Care Team (Late st Contact Info) Description 04/27/2024 10:30 AM EST Office Visit [address] [address] Zulma Kitchen CNP [address] [place] [address] 05/04/2024 9:00 AM EST Office Visit [address] [address] Bobby David MD [address] [place] [address] 06/17/2024 10:00 AM EDT Telemedicine [address] [address] Skye Melton, HODA documented as of this encounter Goals Goal Patient Goal Type Associated Problems Recent Progress Patient-Stated? Author Smoking cessation General No Pucornelius, Inga, PharmD documented as of this encounter Visit Diagnoses Not on filedocumented in this encounter Additional Health Concerns Assessment Noted Time PHQ-9 Depression Total Score: 0 06/19/19 24 10:09 AM EDT documented as of this encounter Care Teams Chain Mender Relationship Specialty Start Date End Date NameBobby MD [address] [place] [address] PCP - General Family Medicine 06/01/15 documented as of this encounter
--- OUTSIDE RECORDS SUMMARY | 2024-04-21 14:51 | XMS_ITS | Encounter Summary ---
Author Organization [employer] Address [address] [facility] 7t [place] [address] Care Team Providers Care 4Th Grade Math Teacher Name Role Phone Name, Bobby GRADY Primary Care Provider [phone] Reason for Visit * Reason Comments Med Refill Encounter Details Date Type Department Care Team ([facility] st Contact Info) Description 03/28/2024 Refill [facility] MEDICINE [address] [place], [place] [phone] Name, MD Bobby [address] [place] [address] Chronic low back pain with sciatica, sciatica laterality unspecified, unspecified back pain laterality Social History Tobacco Use Types Packs/Day Years [...] the past 12 months, has t he [employer], gas, oil or water [employer] threatened to shut off services in your [...] encounter Miscellaneous Notes * Telephone Encounter - Cady Myers RN - 03/28/2024 10:56 AM EST Per review of [facility] today, pt last filled Percocet 03/02/24 with a 28 day supply. Refill pended topcp for review d/t Holiday 03/30/24. documented in this encounter Plan of Treatment Upcoming Encounters Date Type Department Care Team (Late st Contact Info) Description 04/27/2024 10:30 AM EST Office Visit [facility] MED[facility]INE [address] [place] [phone] Zulma Kitchen CNP [address] [place], [place] [phone] 05/04/2024 9:00 AM EST Office Visit [facility] [address] [place] [phone] Name, MD Bobby [address] [place] [phone] 06/17/2024 10:00 AM EDT Telemedicine [facility] [address] [place] [address] Skye Melton, HODA documented as of this encounter Goals Goal Patient Goal Type Associated Problems Recent Progress Patient-Stated? Author Smoking cessation General No Inga Magaña, MiltonD documented as of this encounter Visit Diagnoses Diagnosis Chronic low back pain with sciatica, sciatica laterality unspecified, unspecified back pain laterality documented in this encounter Additional Health Concerns Assessment Noted Time PHQ-9 Depression Total Score: 0 06/19/19 24 10:09 AM EDT documented as of this encounter Care Teams 4Th Grade Math Teacher Relationship Specialty Start Date End Date Name, MD Bobby [address] [place] [address] PCP - General Family Medicine 06/01/15 documented as of this encounter
--- OUTSIDE RECORDS SUMMARY | 2024-04-21 14:51 | XMS_ITS | Encounter Summary ---
Author Organization [employer] Address [address] [facility] 7[address] [place] [address] Care Team Providers Care De Icer Name Role Phone Name, Bobby GRADY Primary Care Provider [phone] Inga Magaña PharmD Unavailable [phone] Reason for Visit * Reason Comments Med Change Request Encounter Details Date Type Department Care Team ([facility] st Contact Info) Description 06/09/2023 Refill [facility] MEDICINE [address] [place] [address] Name, MD Bobby [address] [place] [address] Social History Tobacco Use Types Packs/Day Years [...] Description 04/27/2024 10:30 AM EST Office Visit [address] [address] Zulma Kitchen CNP [address] [place] [phone] 05/04/2024 9:00 AM EST Office Visit [address] [address] Name, MD Bobby [address] [place] [address] 06/17/2024 10:00 AM EDT Telemedicine [address] [address] Skye Melton, HODA documented as of this encounter Goals Goal Patient Goal Type Associated Problems Recent Progress Patient-Stated? Author Smoking cessation General No Inga Magaña, PharmD documented as of this encounter Visit Diagnoses Not on filedocumented in this encounter Additional Health Concerns Assessment Noted Time PHQ-9 Depression Total Score: 0 03/11/20 22 11:47 AM EST documented as of this encounter Care Teams De Icer Relationship Specialty Start Date End Date NameBobby MD [address] [place] [phone] PCP - General Family Medicine 06/01/15 Puia, Lucio Xiong [address] [place] [phone] Pharmacist Internal Medicine 01/07/23 09/29/23 documented as of this encounter
--- OUTSIDE RECORDS SUMMARY | 2024-04-21 14:51 | XMS_ITS | Encounter Summary ---
Author Organization [employer] Address [address] [facility] 7t [place] [address] Care Team Providers Care Fruit Farmer Name Role Phone Name, Bobby GRADY Primary Care Provider [phone] Inga Magaña PharmD Unavailable [phone] Reason for Visit * Reason Comments Med Refill Encounter Details Date Type Department Care Team ([facility] st Contact Info) Description 04/28/2023 Refill [facility] MEDICINE [address] [place] [address] Name, MD Bobby [address] [place] [address] Social History Tobacco Use Types Packs/Day Years [...] Description 04/27/2024 10:30 AM EST Office Visit [address] [address] Zulma Kitchen CNP [address] [place] [phone] 05/04/2024 9:00 AM EST Office Visit [address] [address] Name, MD Bobby [address] [place] [address] 06/17/2024 10:00 AM EDT Telemedicine [address] [address] Skye Melton, HODA documented as of this encounter Goals Goal Patient Goal Type Associated Problems Recent Progress Patient-Stated? Author Smoking cessation General No Inga Magaña, PharmD documented as of this encounter Visit Diagnoses Not on filedocumented in this encounter Additional Health Concerns Assessment Noted Time PHQ-9 Depression Total Score: 0 03/11/20 22 11:47 AM EST documented as of this encounter Care Teams Fruit Farmer Relationship Specialty Start Date End Date NameBobby MD [address] [place] [id number] PCP - General Family Medicine 06/01/15 Puia, Lucio Xiong [address] [place] [address] Pharmacist Internal Medicine 01/07/23 09/29/23 documented as of this encounter
--- OUTSIDE RECORDS SUMMARY | 2024-04-21 14:51 | XMS_ITS | Clinical Summary ---
Author Organization [employer] Address [address] [place] [address] [address] [place] [address] Care Team Providers Care Charity Fundraiser Name Role Phone Name, Bobby GRADY Primary Care Provider Allergies Active Allergy Reactions Criticality Noted Date Comments Ignacio Inhibitors Anaphylaxis High 04/21/2018 Other reaction(s): anaphlaxis, ANGIO EDEMA Other Reaction(s): ANGIO EDEMA Azithromycin 09/30/2023 Other Reaction(s): Not available Enalapril High 04/28/2017 Other reaction(s): Anaphylaxis Erythromycin Anaphylaxis High 04/18/2010 Other reaction(s): Hives/Urticaria, pustules over entire body, Unknown Other Reaction(s): Unknown Erythromycin Base High 06/25/2022 Other reaction(s): HIVES ALL OVER Other Reaction(s): HIVES ALL OVER Hydromorphone High 06/24/2022 Other reaction(s): TINGLING, PT DOES NOT LIKE THE FEELING MED GIVES HER Other reaction(s): Unknown Outside Source Comment: Other reaction(s): TINGLING, PT DOES NOT LIKE THE FEELING MED GIVES HER Other reaction(s): TINGLING, PT DOES NOT LIKE THE FEELING MED GIVES HER Other Reaction(s): TINGLING, PT DOES NOT LIKE THE FEELING MED GIVES HER Other Reaction(s): Not available Metformin 07/07/2018 Other reaction(s): lactic acidosis Other reaction(s): Unknown Outside Source Comment: Other reaction(s): lactic acidosis Other Reaction(s): Not available Metoprolol Unknown 10/20/2022 Medications albuterol 108 (90 Base) MCG/ACT inhaler Inhale 2 puffs every 4 (four) hours if needed. Active COVID-19 At Home Antigen Test (QuickVue At-Home Covid-19 Test) kit as directed Active Roflumilast 500 MCG tablet Take 1 tablet by mouth at bed time. Active naloxone (Narcan) 4 mg/0.1 mL nasal spray Administer 0.1 mL into affected nostril(s). Active carvedilol (Coreg) 6.25 MG tablet Take 1 tablet by oral route 2 times every day with food Active atorvastatin (Lipitor) 80 MG tablet Take 1 tablet by mouth at bed time. Active nicotine (Nicoderm CQ) 14 MG/24HR patchIndications :Chronic obstructive pulmonary disease, unspecified COPD type (CMS/[facility]) Place 1 patch on the skin 1 (one) time each day at the same time. 30 patch 2 Active TRUEplus Lancets 33G miscIndications: Type 2 diabetes mellitus without complications ([facility]) Check BG twice daily 100 each 11 Active Alcohol Swabs (Alcohol Prep) 70 % pads USE THREE TIMES DAILY Active D3 Super Strength 50 MCG (2000 UT) capsule Take 1 capsule by mouth 1 (one) time each day. Active Trelegy Ellipta 100-62.5-25 MCG/ACT aerosol powder INHALE 1 PUFF EVERY DAY AT THE SAME TIME Active lidocaine-priloc alexander (Emla) 2.5-2.5 % cream APPLY TO THE AFFECTED AREA(S) ONCE FOR PAIN. APPLY 15-30 MINUTES PRIOR TO QUTENZA ON 10/06/22 Active pyridoxine (Vitamin B-6) 100 MG tablet Take 1 tablet by mouth 1 (one) time each day. Active Blood Glucose Monitoring Suppl (ONE TOUCH ULTRA 2) w/Device kit USE TO TEST BLOOD SUGAR THREE TIMES DAILY 1 kit Active OneTouch Delica Lancets 33G misc USE TO TEST BLOOD SUGAR THREE TIMES DAILY 100 each 5 023 Active Varenicline Tartrate, Starter, (Chantix Starting Month ) 0.5 MG X 11 & 1 MG X 42 tablet therapy packIndications: Tobacco dependence syndrome Take 0.5 mg by mouth in the morning for 3 days, THEN 0.5 mg 2 times daily for 4 days, THEN 1 mg 2 times daily. 53 each Active cetirizine (ZyrTEC) 10 MG tabletIndication s:Seasonal allergic rhinitis, unspecified trigger TAKE 1 TABLET BY MOUTH EVERY DAY 90 tablet 1 Active calcitriol (Rocaltrol) 0.25 MCG capsule Take 0.25 mcg by mouth in the morning. Active tamsulosin (Flomax) 0.4 MG 24 hr capsule TAKE 1 CAPSULE BY MOUTH ONCE DAILY AT BEDTIME FOR 14 DAYS Active BD Pen Needle Maria Guadalupe U/F 32G X 4 MM miscIndications: Type 2 diabetes mellitus with other specified complication, unspecified whether snf insulin use ([facility]) USE DIRECTED FIVE TIMES DAILY 200 each Active levothyroxine (Synthroid) 125 MCG tablet Take 1 tablet (125 mcg) by mouth before breakfast. 30 tablet 2024 Active fluticasone (Flonase) 50 MCG/ACT nasal spray INSTILL 2 SPRAYS IN EACH NOSTRIL ONCE DAILY 16 g 3 Active celecoxib (CeleBREX) 200 MG capsule TAKE 1 CAPSULE BY MOUTH TWICE DAILY WITH FOOD AND A FULL GLASS OF WATER NEEDED FOR PAIN Active dulaglutide (Trulicity) 1.5 MG/0.5ML solution pen-injectorIndi cations:Type 2 diabetes with complication ([facility]),COPD exacerbation ([facility]) Inject 1.5 mg under the skin 1 (one) time per week. 2 mL Active Aspirin Adult Low Strength 81 MG EC tablet TAKE 1 TABLET BY MOUTH EVERY DAY 90 tablet 1 Active montelukast (Singulair) 10 MG tablet TAKE 1 TABLET BY MOUTH EVERY EVENING 90 tablet Active omeprazole (PriLOSEC) [address] capsuleIndicatio ns:Lumbar radiculopathy TAKE 1 CAPSULE BY MOUTH TWICE DAILY 30 MINUTES BEFORE MEALS 60 capsule Active senna (Senokot) 8.6 MG tabletIndication s:Lumbar radiculopathy TAKE 2 TABLETS BY MOUTH EVERY DAY 180 tablet 2 Active docusate sodium (Colace) 100 MG capsuleIndicatio ns:Drug-induced constipation TAKE 1 CAPSULE BY MOUTH EVERY DAY AT BEDTIME NEEDED 90 capsule Active empagliflozin (Jardiance) 10 MG Take 1 tablet (10 mg) by mouth Once per day. 30 tablet 11 024 2024 Active insulin glargine (Lantus SoloStar) 100 UNIT/ML penIndications:A therosclerosis of coronary artery of agdaagux heart, unspecified vessel or lesion type, unspecified whether angina present INJECT 35 UNITS SUBCUTANEOUSLY TWICE DAILY IN THE MORNING AND IN THE EVENING 15 mL 5 Active OneTouch Ultra Test test stripIndications :Type 2 diabetes mellitus without complications (CMS/HCC) USE DIRECTED TO TEST BLOOD SUGAR THREE TIMES DAILY 50 strip 5 Active SM Calcium Citrate+Vit D3 Max tablet TAKE 1 TABLET BY MOUTH 2 TIMES DAILY 60 tablet 3 Active Combivent Respimat 20-100 MCG/ACT inhalerIndicatio ns:Chronic obstructive pulmonary disease, unspecified COPD type (CMS/HCC) INHALE 1 PUFF 4 TIMES A DAY, MAY TAKE ADDITIONAL PUFFS NEEDED. (MAX OF 6 PUFFS PER DAY) 4 g 5 Active methocarbamol (Robaxin) 750 MG tablet Take 1 tablet (750 mg) by mouth every 8 (eight) hours. 120 tablet 1 Active ipratropium-albu terol (Duo-Neb) 0.5-2.5 mg/3 mL nebulizer solutionIndicati ons:Chronic obstructive pulmonary disease, unspecified (CMS/HCC) INHALE 1 AMPULE USING A NEBULIZER FOUR TIMES DAILY 360 mL 3 Active pregabalin (Lyrica) 100 MG capsule TAKE 1 CAPSULE BY MOUTH TWICE DAILY FOR 7 DAYS THEN INCREASE TO 1 CAPSULE THREE TIMES DAILY FOR 21 DAYS 77 capsule Active oxyCODONE-acetam inophen (Percocet) 7.5-325 MG tabletIndication s:Chronic low back pain with sciatica, sciatica laterality unspecified, unspecified back pain laterality TAKE 1 TABLET BY MOUTH EVERY 6 HOURS NEEDED FOR SEVERE PAIN FOR UP TO 28 DAYS 112 tablet Active NovoLOG FLEXPEN 100 UNIT/ML pen INJECT 6 TO 10 UNITS SUBCUTANEOUSLY BEFORE MEALS AND SNACKS DIRECTED 15 mL 5 Active predniSONE (Deltasone) 5 MG tablet Take 5 mg by mouth in the morning. 2024 Discontinued NovoLOG FLEXPEN 100 UNIT/ML pen INJECT 6 TO 10 UNITS SUBCUTANEOUSLY BEFORE MEALS AND SNACKS DIRECTED 023 2024 Discontinued predniSONE (Deltasone) 10 MG tabletIndication s:Acute exacerbation of chronic obstructive pulmonary disease (CMS/HCC) 60mg PO x3d, then 40mg x3d, then 20mg x4d, then 10mg x4d 42 tablet 024 2024 Discontinued oxyCODONE-acetam inophen (Percocet) 7.5-325 MG tabletIndication s:Chronic low back pain with sciatica, sciatica laterality unspecified, unspecified back pain laterality Take 1 tablet by mouth every 6 (six) hours if needed for severe pain for up to 28 days. 112 tablet 024 2023 Discontinued predniSONE (Deltasone) 20 MG tabletIndication s:COPD exacerbation (CMS/HCC) Take 2 tablets (40 mg) by mouth Once per day for 4 days, THEN 1 tablet (20 mg) Once per day for 4 days, THEN 0.5 tablets (10 mg) Once per day for 4 days. 14 tablet 025 2024 doxycycline (Vibra-Tabs) 100 MG tabletIndication s:COPD exacerbation (CMS/HCC) Take 1 tablet (100 mg) by mouth 2 times daily for 7 days. Take with a full glass of water and do not lie down for at least 30 minutes after. 14 tablet 025 2024 Active Problems Problem Noted Date Diagnosed Date COPD exacerbation 04/04/2024 Assessment & Plan (04/04/2024 12:56 PM EST): Pt endorses increased sputum production, increased sob, Neg covid tests at home Chest x-ray neg- in care with pulmonary, Extensive conversation about smoking cessation Will treat with prednisone burst/taper and doxycylcine Acute pain of right shoulder 04/03/2024 Assessment & Plan (04/04/2024 12:54 PM EST): X-ray negative for fracture, suspect mks strain from coughing Reviewed bracing while coughing Constipation 09/30/2023 Family history of colon cancer 09/30/2023 History of colonic polyps 09/30/2023 Encounter for screening for malignant neoplasm o f colon 09/30/2023 CAD in agdaagux artery 09/02/2023 Opioid dependence, daily use 07/27/2023 Smokes tobacco daily 07/27/2023 Nephrolithiasis 07/27/2023 HLD (hyperlipidemia) 07/27/2023 Hypothyroidism 07/27/2023 Cough 06/18/2023 Pre-op chest exam 06/18/2023 Hypothyroidism, postsurgical 06/18/2023 Other chest pain 04/21/2023 H/O total thyroidectomy 02/02/2023 Atelectasis 11/06/2022 CHF (congestive heart failure) 11/06/2022 COVID-19 11/06/2022 Fracture of metatarsal bone 11/06/2022 Hypoxia 11/06/2022 Increased anion gap metabolic acidosis 3 Lesion of bronchus 11/06/2022 Lumbar post-laminectomy syndrome 11/06/2022 Lumbar spondylosis 11/06/2022 Microscopic hematuria 11/06/2022 Multinodular goiter 11/06/2022 Muscle spasm of back 11/06/2022 MCKAY (obstructive sleep apnea) 11/06/2022 Pneumonia 11/06/2022 Positive blood culture 11/06/2022 Pulmonary nodules 11/06/2022 Right radial head fracture 11/06/2022 Sacroiliac joint dysfunction of left side 2022 Tobacco abuse 11/06/2022 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 Tubular adenoma 11/06/2022 Vitamin D deficiency 11/06/2022 Acute respiratory failure with hypoxia 3 Tubular adenoma of colon 07/18/2022 Cardiomyopathy 04/15/2022 Acute exacerbation of chronic obstructive pulmon leah disease 03/05/2022 Assessment & Plan (04/21/2023 2:19 PM EST): Drink plenty of fluids and rest If symptom persist or worse call back or call ambulance depending on severity of symptom patient was educated) Polyneuropathy due to type 2 diabetes mellitus 1 05/06/2021 Osteopenia 03/05/2022 Seasonal allergic rhinitis 03/05/2022 Lumbar radiculopathy 09/10/[address] segment elevation myocardial infarction 07/08/2017 Eruption due to drug 07/08/2017 S/P coronary artery stent placement 07/08/2017 Gastroesophageal reflux disease 06/16/2017 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 (IGNACIO-I) 04/29/2017 Irritable bowel syndrome 07/22/2016 Increased lactic acid level 12/14/2015 Chronic painful diabetic neuropathy 07/09/2015 Bilateral nephrolithiasis 07/19/2012 Pure hypercholesterolemia 10/15/2011 Hypertension 07/07/2011 Arteriosclerosis of coronary artery 07/07/2011 Overview (11/06/2022): Stress echo suboptimal in 07/2009 Dobut MIBI 08/2009 no sx, normal EKG and nuclear images Echo 06/2009 LVEF 55-60%, diastolic dysfunction Hyperglycemia 07/07/2011 Allergy-induced asthma 07/07/2011 Hyperlipidemia with target LDL less than 70 11/2011 Overview (11/06/2022): IMO update Macular degeneration 1959 Polyp of colon 1959 Obesity 1959 Microalbuminuria 1959 Tobacco dependence syndrome 1959 Assessment & Plan (04/04/2024 12:57 PM EST): Reviewed relationship between copd and smoking, Pt aware, discusses regularly with pulm and pcp Has patches COPD (chronic obstructive pulmonary disease) 03/1959 Resolved Problems Problem Noted Date Diagnosed Date Resolved Date Hypothyroidism, acquired 02/02/2023 Subclinical hyperthyroidism 01/26/2020 06/19/2023 Encounters Date Type Department Care Team Description 04/21/2024 Orders Only GENERIC EXTERNAL DATA DEPARTMENT Provider, Generic External Data 04/14/2024 Orders Only GENERIC EXTERNAL DATA DEPARTMENT Provider, Generic External Data 04/14/2024 Telephone [facility] [place] [address] Bobby David MD Referral 04/14/2024 Telephone [facility] [place] [address] Bobby David MD Durable Medical Equipment 04/12/2024 Telephone [facility] [place] [address] Bobby David MD Chart Prep 04/11/2024 Telephone [facility] [place] [address] Bobby David MD Hospital Follow-up 04/07/2024 Orders Only [facility] External Provider, [facility] 04/06/2024 Telephone [facility] [place] [address] Bobby David MD Nurse Triage 04/04/2024 9:30 AM EST Office Visit [facility] [place] [address] Alexandra Hernandez NP Acute pain of right shoulder (Primary Dx); COPD exacerbation ([facility]); Tobacco dependence syndrome 04/04/2024 Refill [facility] [place] [address] Bobby David MD 04/01/2024 10:00 AM EST Telemedicine [facility] [place] [address] Skye Melton RN Chronic pain syndrome 04/01/[address] [address] Skye Melton RN BPI Scoring / C/O scapular to right breast pain 04/01/2024 Telephone [facility] [place] [address] Bobby David MD Nurse Triage 04/01/2024 Travel 04/01/2024 Telephone [facility] [place] [phone] Skye Melton RN Recommend TIRE BLADDER [employer]ER Tele Tier 2 03/28/2024 Refill [facility] [place] [address] Bobby David MD Chronic low back pain with sciatica, sciatica laterality unspecified, unspecified back pain laterality 03/15/2024 Refill [facility] [address] [place] [address] Bobby David MD 03/10/2024 Telephone [facility] [address] [place] [address] Cem Berrios [place] Dme- panty Liners 03/10/2024 Telephone [facility] [address] [place] [address] Bobby David MD 03/09/2024 Refill [facility] [address] [place] [address] Bobby David MD Chronic obstructive pulmonary disease, unspecified ([facility]/HCC) 03/09/2024 Telephone [facility] [address] [place] [address] Bobby David MD Med Refill 03/04/2024 Telephone [facility] [address] [place] [address] Cem Berrios MA feb recall 03/02/2024 Telephone [facility] [address] [place] [phone] Cady Myers, RN 03/02/2024 Telephone [facility] [address] [place] [phone] Amanda Castro, RN 03/01/2024 Refill [facility] [address] [place] [address] Bobby David MD Chronic low back pain with sciatica, sciatica laterality unspecified, unspecified back pain laterality 02/19/2024 Refill [facility] [address] [place] [address] Bobby David MD 02/15/2024 Refill [facility] [address] [place] [address] Bobby David MD Chronic obstructive pulmonary disease, unspecified COPD type ([facility]/HCC) 02/05/2024 Orders Only GENERIC EXTERNAL DATA DEPARTMENT Provider, Generic External Data 02/04/2024 11:30 AM EST Office Visit [facility] [address] [place] [address] Name, MD Bobby Type 2 diabetes with complication ([facility]) (Primary Dx); COPD (chronic obstructive pulmonary disease) with acute bronchitis ([facility]/HCC) ([facility]/HCC); On prednisone therapy; Osteopenia, unspecified location; Chronic pain syndrome 02/01/2024 Refill [facility] [address] [place] [address] Name, MD Bobby Chronic low back pain with sciatica, sciatica laterality unspecified, unspecified back pain laterality 01/30/2024 Refill [facility] [address] [place], [place] [phone] Name, MD Bobby Type 2 diabetes mellitus without complications ([facility]/HCC) 01/22/2024 10:00 AM EDT Telemedicine [facility] [address] [place] [address] Skye Melton RN Chronic low back pain, unspecified back pain laterality, unspecified whether sciatica present 01/22/2024 Travel from Last 3 Months Immunizations Name Administration Dates Next Due Influenza Injectable Quadriv alant Preservative Free IIV4 MDCK 01/07/2023,03/06/2019 Influenza injectable quadriv alent IIV4 with preservative 01/18/2018,02/17/2017,12/14/2015 Influenza injectable quadriv alent preservative free 03/11/2022,12/24/2020,12/15/2014 Influenza, IIV3, injectable 01/23/2014, 1 Influenza, Split (incl. jean-claude fied surface antigen) 12/20/2012,01/19/2012 Influenza, seasonal, injecta ble, preservative free 12/10/2023 Moderna Covid-19 Vaccine 12+ 02/26/2021,06/21/19 21 Pfizer Covid-19 Vaccine 12+ 01/05/2024, 3 Pfizer Covid-19 Vaccine 12+ Bivalent 03/11/2022 Pneumococcal Conjugate PCV 20 11/07/2022 Pneumococcal Polysaccharide PPSV23 05/23/2019, TD (adult), 2 Lf tetanus tox oid, preservative free, adsorbed 06/12/2009 Tdap 11/07/2022,06/12/2009 Zoster, Recombinant 01/07/2023,11/07/2022 Social History Tobacco Use Types Packs/Day Years Used Date Smoking Tobacco: Every Day Cigarettes Passive Smoke Exposure: Current Smokeless Tobacco: Current Tobacco Cessation:Ready to Q uit: Not Asked; Counseling Given: Not Answered Alcohol Use Standard Drinks/Week Comments Never 0 [...] Orientation Straight 01/27/2022 10 :21 AM EDT Last Filed Vital Signs Vital Sign Reading [...] Mass Index 28.69 04/04/2024 9:29 AM EST Plan of Treatment Upcoming Encounters Date Type Department Care Team (Late st Contact Info) Description 04/27/2024 10:30 AM EST Office Visit [address] [address] Zulma Kitchen, ZENON [address] [place] [phone] 05/04/2024 9:00 AM EST Office Visit [address] [address] Name, MD Bobby [address] [place] [phone] 06/17/2024 10:00 AM EDT Telemedicine [address] [address] Skye Melton, RN Health Maintenance Due Date Last Done Comments CT Colonography 1959 FIT DNA/Cologuard 1959 FIT 1959 FOBT 1959 HIV Screening 1959 Sigmoidoscopy 1959 Eye Exam 12/30/1969 Hepatitis C Screening 12/30/1977 Hepatitis A Vaccines (1 of 2 - Risk 2-dose series) 12/30/1978 RSV Patients and Patients Aged 60 years or older (1 - Risk 60-74 years 1-dose series) 2019 Mammogram 04/24/2023 04/24/2021, 09/27, 10/06/2019, Additional history exists Cervical Cancer Screening 02/28/2024 HPV/Cotest 02/28/2024 02/27/2021, 03/03/2018 Pap Smear 02/28/2024 02/27/2021, 02/27/2021 Diabetes: Hemoglobin A1C 05/06/2024 024, 12/10/2023, 09/30/2023, Additional history exists Depression Screening 06/18/2024 06/19/2023, 06/19/19 24 SDOH Screening 06/18/2024 06/19/2023 Alcohol/Substance Use Screening 09/29/2024 09/30/2023 Diabetes: Foot Exam 12/09/2024 12/10/2023, 12/10/2023, 12/10/2023, Additional history exists Diabetes: Urine Protein Screening 12/28/2024 12/29/2023, 08/28/2021, 10/30/2020 Lipid Panel 12/28/2024 12/29/2023, 08/28/2021 Tobacco Screening 04/04/2025 04/04/2024 Colonoscopy 07/16/2025 07/16/2022 Colorectal Cancer Screening 07/16/2025 DTaP/Tdap/Td Vaccines (4 - Td or Tdap) 11/07/2032 11/07/2022, 06/12/2009, 06/12/2009 Pneumococcal Vaccine: Pediatrics (0 to 5 Years) and At-Risk Patients (6 to 64 Years) Completed 11/07/2022, 05/23/2019, 03/30/2003 Zoster Vaccines Completed 01/07/2023, 11/07/2022 Influenza Vaccine Completed 12/10/2023, , 03/11/2022, Additional history exists COVID-19 Vaccine Completed 01/05/2024, , 03/11/2022, Additional history exists HIB Vaccines Aged Out No longer eligi ble based on patient's age to complete this topic HPV Vaccines Aged Out No longer eligi ble based on patient's age to complete this topic Hepatitis B Vaccines Aged Out No long er eligible based on patient's age to complete this topic IPV Vaccines Aged Out No longer eligi ble based on patient's age to complete this topic Meningococcal Vaccine Aged Out No cecilia zachary eligible based on patient's age to complete this topic RSV under 20 months Aged Out No longe r eligible based on patient's age to complete this topic Rotavirus Vaccines Aged Out No longer eligible based on patient's age to complete this topic Goals Goal Patient Goal Type Associated Problems Recent Progress Patient-Stated? Author Smoking cessation General No Puia, Inga, PharmD Procedures Procedure Name Priority Date/Time Associated Diagnosis Comments VENOUS BLOOD GAS Routine 04/21/2024 12:5 8 PM EST XR CHEST 1 VIEW Routine 04/21/2024 11:56 AM EST XR CHEST 1 VIEW Routine 04/14/2024 7:22 PM EST B TYPE NATRIURETIC PEPTIDE (BNP) Routine 04/14/2024 6:34 PM EST HIGH SENSITIVITY TROPONIN I Routine 04/14/2024 6:34 PM EST LACTIC ACID Routine 04/14/2024 6:34 PM EST MAGNESIUM Routine 04/14/2024 6:34 PM EST BASIC METABOLIC PANEL Routine 04/14/2024 6:34 PM EST CBC WITH AUTO DIFFERENTIAL Routine 04/14/2024 6:34 PM EST VENOUS BLOOD GAS Routine 04/14/2024 6:34 PM EST SARS COV2/INFLUENZA A/B AND RSV RNA QL NAAT Routine 04/14/2024 6:34 PM EST C-REACTIVE PROTEIN Routine 04/07/2024 2: 12 PM EST MAGNESIUM Routine 04/07/2024 2:12 PM EST BASIC METABOLIC PANEL Routine 04/07/2024 2:12 PM EST HEPATIC FUNCTION PANEL Routine 2:12 PM EST HIGH SENSITIVITY TROPONIN I Routine 04/07/2024 2:12 PM EST PROTHROMBIN TIME-INR Routine 04/07/2024 2:12 PM EST VENOUS BLOOD GAS Routine 04/07/2024 10:2 9 AM EST B TYPE NATRIURETIC PEPTIDE (BNP) Routine 04/07/2024 10:25 AM EST CBC WITH AUTO DIFFERENTIAL Routine 04/07/2024 10:24 AM EST SARS COV2/INFLUENZA A/B AND RSV RNA QL NAAT Routine 04/07/2024 9:58 AM EST XR CHEST 1 VIEW Routine 04/07/2024 9:37 AM EST XR CHEST 2 VIEWS Routine 04/04/2024 10:0 6 AM EST Acute pain of right shoulder RESPIRATORY ALLERGY PROFILE REGION I Routine 02/05/2024 11:03 AM EST IMMUNOGLOBULIN E Routine 02/05/2024 11:0 3 AM EST SED RATE BY MODIFIED WESTERGREN Routine 02/05/2024 11:03 AM EST CBC WITH AUTO DIFFERENTIAL Routine 02/05/2024 11:03 AM EST POCT GLYCATED HEMOGLOBIN, TOTAL Routine 02/04/2024 11:40 AM EST Type 2 diabetes with complication (CMS/HCC) POCT GLUCOSE Routine 02/04/2024 11:40 AM EST Type 2 diabetes with complication (CMS/HCC) US RENAL BI Routine 01/22/2024 12:32 PM EDT ALBUMIN, RANDOM URINE W/CREATININE Routine 12/29/2023 11:20 AM EDT Type 2 diabetes with complication (CMS/HCC) Atherosclerosis of coronary artery of agdaagux heart, unspecified vessel or lesion type, unspecified whether angina present Pain of toe of left foot LIPID PANEL, STANDARD Routine 12/29/2023 11:17 AM EDT Type 2 diabetes with complication (CMS/HCC) Atherosclerosis of coronary artery of agdaagux heart, unspecified vessel or lesion type, unspecified whether angina present Pain of toe of left foot HM COLONOSCOPY Routine 07/16/2022 MAMMOGRAM GENERIC Routine 04/24/2021 10: 00 AM EST HM PAP/HPV Routine 02/27/2021 10:30 AM EST THINPREP IMAGING PAP AND HPV MRNA E6/E7 WITH REFLEX TO HPV 16,18/45 Routine 02/27/2021 10:24 AM EST from Last 3 Months or Most Recently Relevant to Health Maintenance Results * (ABNORMAL) VENOUS BLOOD GAS (04/21/2024 12:58 PM EST) Only the most recent of3 resultswithin the time period is included. VBG pH 7.47(H) 7.32 - 7.43 [facility] Comment:METER #: [id number] additional_comment: Cb paradim VBG PCO2 42 mmHg [facility] Comment:METER #: [id number] additional_comment: Cb paradim VBG PO2 45 mmHg [facility] Comment:METER #: [id number] additional_comment: Cb paradim VBG Base Excess 7.4 mmol/L [facility] Comment:METER #: [id number] additional_comment: Cb paradim VBG HCO3 31(H) 22 - 26 mmol/L [facility] Comment:METER #: [id number] additional_comment: Cb paradim O2 Sat, Maynor 70.0 % [facility] Comment:METER #: [id number] additional_comment: Cb paradim 04/21/2024 12:5 8 PM EST 04/21/2024 1:02 PM EST us Generic External Data Provider LAB BLOOD ORDERAB LES Final Result [facility] [address] [facility] [place] [phone] * XR Chest 1 View (04/21/2024 11:56 AM EST) Only the most recent of3 resultswithin the time period is included. Anatomical Region Laterality Modality Chest Radiographic Ludivina ging 04/21/2024 11:5 6 AM EST Narrative 04/21/2024 1:29 PM EST ? [facility] ?[address] ?[place] [address] ?XRay Report ? Signed ? Patient: Marita Zapata ?MR#: MM ?? [id number] ? : 1960 ?Acct:[id number] ? Age/Sex: 63 / F ?ADM Date: 04/21/24 ? Loc: HO.ED ? Attending Dr: ? Ordering Physician: Maritza Pineda ?? Date of Service: 04/21/24 ?? Procedure(s): XR chest 1V ?? Accession Number(s): [id number] ? cc: Maritza Pineda; Name,Bobby GRADY ? EXAMINATION: ?? XR CHEST ? CLINICAL INFORMATION: ?? cough, SOB ? COMPARISON: ?? Numerous priors, most recently 04/14/2024. ? TECHNIQUE: ?? AP portable view of the chest was obtained. ? FINDINGS: ?? Cardiac, hilar, and mediastinal contours are normal. ? Stable mild chronic scarring/atelectasis medial right middle lobe and ?? lingula. ?? The lungs are otherwise clear bilaterally. There is no pneumothorax or ?? effusion. ? No focal soft tissue or osseous abnormality. ? XR/XR chest 1V ?? IMPRESSION: ?? No active pulmonary disease. No interval change from 04/14/2024. ? Electronically signed by: ??Felton Ovalle MD ??04/21/2024 01:26 PM EST RP ? Dictated By: ?Felton Ovalle MD ? Signed By: ?<Electronically signed by Felton Ovalle MD in OV> ?04/21/24 1326 ? DD/ 1156 ? TD/TT: 04/21/24 1311 ? Cloth Burler: ? Procedure Note Donotuseinterpreter, Image - 04/21/[address] [address] XRay Report Signed Patient: Marita Zapata MMR#: [id number] : 1960Acct:[id number] Age/Sex: 63 / FADM Date: 04/21/24 Loc: HO.ED Attending Dr: Ordering Physician: Maritza Pineda Date of Service: 04/21/24 Procedure(s): XR chest 1V Accession Number(s): [id number] cc: Maritza Pineda; Name,Bobby GRADY EXAMINATION: XR CHEST CLINICAL INFORMATION: cough, SOB COMPARISON: Numerous priors, most recently 04/14/2024. TECHNIQUE: AP portable view of the chest was obtained. FINDINGS: Cardiac, hilar, and mediastinal contours are normal. Stable mild chronic scarring/atelectasis medial right middle lobe and lingula. The lungs are otherwise clear bilaterally. There is no pneumothorax or effusion. No focal soft tissue or osseous abnormality. XR/XR chest 1V IMPRESSION: No active pulmonary disease. No interval change from 04/14/2024. Electronically signed by: Felton Ovalle MD 04/21/2024 01:26 PM EST Dictated By: Felton Ovalle MD Signed By: <Electronically signed by Felton Ovalle MD in OV> 04/21/24 1326 DD/ 1156 TD/TT: 04/21/24 1311 Cloth Burler: us [facility] External Provider IMG XR PROCEDURES Final Result * High Sensitivity Troponin I (04/14/2024 6:34 PM EST) Only the most recent of2 resultswithin the time period is included. TROPONIN I HIGH SENSITIVITY 8.5 <3.5 - 17.0 ng/L [facility] Comment:The Grossman high sens itivity Troponin-I results should beused in conjunction with other diagnostic information suchas ECG, clinical observations and information, and patientsymptoms to aid in the diagnosis of HI. 04/14/2024 6:34 PM EST 04/14/2024 6:44 PM EST Generic External Data Provider LAB BLOOD ORDERAB LES Final Result Performing Organization Address [facility] de Phone Number [facility] [address] [place] [phone] * (ABNORMAL) SARS-CoV-2 RNA, Influenza A/B, and RSV RNA, Ql NAAT (04/14/2024 6:34 PM EST) Only the most recent of2 resultswithin the time period is included. Influenza A PCR POSITIVE(A) Negative [facility] Influenza B PCR NEGATIVE Negative [facility] Resp Syncy Virus RNA Qual PCR POSITIVE(A) Negative [facility] SARS COV2 PCR NEGATIVE Negative [facility] Comment:All test results mus t be correlated with clinical findings.Negative results do not preclude SARS-CoV2, influenza Avirus, influenza B virus and/or RSV infectionand should not be used as the sole basis for treatment orother patient management decisions. Negative results must becombined with clinical observations, patient history, andepidemiological information.This test has not been evaluated for monitoring treatment ofinfection.This test has been authorized by the FDA under an EmergencyUse Authorization (EUA) for use by authorized laboratories.Testing performed on the [employer] GeneXpert utilizingreal-time RT-PCR.All SARS CoV2 and positive influenza A/B results arereported to [facility]. 04/14/2024 6:34 PM EST 04/14/2024 6:44 PM EST us Generic External Data Provider LAB MICROBIOLOGY - GENERAL ORDERABLES Final Result Performing Organization Address [facility]/ZIP Co de Phone Number [facility] [address] [place] [phone] * (ABNORMAL) CBC auto differential (04/14/2024 6:34 PM EST) Only the most recent of3 resultswithin the time period is included. White Blood Count 20.6(H) 4.8 - 10.8 X10*3/uL [facility] Red Blood Count 6.18(H) 4.20 - 5.50 X10*6/uL [facility] Hemoglobin 17.6(H) 12.0 - 16.0 g/dl [facility] Hematocrit 53.7(H) 37.0 - 47.0 % [facility] Mean Corpuscular Volume 86.9 80.0 - 98.0 fL [facility] Mean Corpuscular Hemoglobin 28.5 27.0 - 33.0 pg [facility] Mean Corpuscular HGB Conc 32.8 31.0 - 35.0 g/dl [facility] Red Cell Distribution Width 14.7 11.0 - 16.0 % [facility] Platelet Count 317 160 - 400 X10*3/uL [facility] Mean Platelet Volume 10.6 9.4 - 12.3 fL [facility] Neutrophils Percent Auto 80.4(H) 45 - 73 % [facility] Imm Gran Pct Auto 0.6(H) 0.0 - 0.4 % [facility] Lymphocytes Percent Auto 14.2(L) 20 - 40 % [facility] Monocytes Percent Auto 4.6 2 - 11 % [facility] Eosinophils Percent Auto 0.0 0 - 4 % [facility] Basophils Percent Auto 0.2 0 - 2 % [facility] NRBC Pct Auto 0.0 0.0 - 0.2 /100WBC [facility] Neutrophils Absolute Auto 16.5(H) 2.0 - 8.3 x10*3/uL [facility] Imm Gran Abs Auto 0.13(H) 0.00 - 0.03 X10*3/uL [facility] Lymphocytes Absolute Auto 2.9 1.2 - 4.9 X10*3/uL [facility] Monocytes Absolute Auto 0.9 0.1 - 1.2 X10*3/uL [facility] Eosinophils Absolute Auto 0.0 0.0 - 0.4 X10*3/uL [facility] Basophils Absolute Auto 0.0 0.0 - 0.2 X10*3/uL [facility] NRBC Abs Auto 0.000 0.0 - 0.012 X10*3/uL [facility] 04/14/2024 6:34 PM EST 04/14/2024 6:44 PM EST Generic External Data Provider LAB BLOOD ORDERAB LES Final Result Performing Organization Address [facility] de Phone Number [facility] [address] [place] [phone] * B Type Natriuretic Peptide (BNP) (04/14/2024 6:34 PM EST) Only the most recent of2 resultswithin the time period is included. B Type Natriuretic Peptide 48 <100 pg/mL [facility] Comment:For those patients w ho are being treated with Natrecor(nesiritide, recombinant BNP), BNP testing should beperformed at least two hours post treatment in order toensure that only endogenous levels of BNP are detected. 04/14/2024 6:34 PM EST 04/14/2024 6:49 PM EST us Generic External Data Provider LAB BLOOD ORDERAB LES Final Result Performing Organization Address [facility] Co de Phone Number [facility] [address] [place] [phone] * (ABNORMAL) Magnesium (04/14/2024 6:34 PM EST) Only the most recent of2 resultswithin the time period is included. Magnesium 3.2(H) 1.6 - 2.6 mg/dL [facility] 04/14/2024 6:34 PM EST 04/14/2024 6:44 PM EST us Generic External Data Provider LAB BLOOD ORDERAB LES Final Result Performing Organization Address City/[facility]/ZIP Co de Phone Number [facility] [address] [place] [phone] * Lactic Acid (04/14/2024 6:34 PM EST) Lactic Acid 1.7 0.5 - 2.0 mmol/L [facility] 04/14/2024 6:34 PM EST 04/14/2024 6:44 PM EST Generic External Data Provider LAB BLOOD ORDERAB LES Final Result Performing Organization Address [facility] de Phone Number [facility] [address] [place] [phone] * (ABNORMAL) Basic Metabolic Panel (04/14/2024 6:34 PM EST) Only the most recent of2 resultswithin the time period is included. Sodium 147(H) 135 - 145 mmol/L [facility] Potassium 3.9 3.3 - 5.1 mmol/L [facility] Chloride 108 96 - 108 mmol/L [facility] Carbon Dioxide 28 22 - 29 mmol/L [facility] Anion Gap 15 12 - 20 [facility] Urea Nitrogen (BUN) 22(H) 9 - 16 mg/dL [facility] Creatinine, Serum 0.81 0.5 - 1.4 mg/dL [facility] Creatinine Clr Calc Pharmacy 72.0 [facility] Comment:Provided height and weight: 165.1 cm,77.111 kg.eGFR (calculated from the MDRD study equation) and eCrCl(calculated from the Cockcroft-Gault equation) are based ondifferent parameters and may not yield comparable results.If eCrCl result is absurd, please check patient'sheight/weight. Estimated Glomerular Filt Rate >60 [facility] Comment:Chronic Kidney Disea se: Estimated GFR < 60 mL/min/1.47b6Tuoxqx Kidney Disease: Estimated GFR < 15 mL/min/1.73m2 Glucose 144(H) 60 - 115 mg/dL [facility] Calcium 8.4 8.4 - 10.2 mg/dL [facility] 04/14/2024 6:34 PM EST 04/14/2024 6:44 PM EST Generic External Data Provider LAB BLOOD ORDERAB LES Final Result Performing Organization Address [facility] Co de Phone Number [facility] [address] [place] [phone] * Prothrombin Time-INR (04/07/2024 2:12 PM EST) Prothrombin Time 11.1 10.9 - 12.4 SEC [facility] INTERNATIONAL NORM RATIO 1.0 0.9 - 1.1 [facility] Comment:INTERNATIONAL NORMAL IZED RATIO (INR) REFERENCE RANGES Reference RangeFor patients not on anticoagulant therapy: 0.9 - 1.1INR ranges for oral anticoagulanttherapy:For prevention and treatment of venous thrombosis and pulmonary embolism: 2.0 - 3.0For acute myocardial infarction with aspirin therapy: 2.0 - 3.0For acute myocardial infarction without aspirin therapy: 3.0 - 4.0For patients with mechanical prosthetic heart valves: 2.5 - 3.5 04/07/2024 2:12 PM EST 04/07/2024 2:16 PM EST Narrative [facility] - 04/07/2024 2:30 PM EST SPECIMEN HEMOLYZED Generic External Data Provider LAB BLOOD ORDERAB LES Final Result Performing Organization Address [facility] Co de Phone Number [facility] [address] [place] [phone] * (ABNORMAL) C-reactive Protein (04/07/2024 2:12 PM EST) C Reactive Protein 0.85(H) < or = 0.50 mg/dL [facility] 04/07/2024 2:12 PM EST 04/07/2024 2:16 PM EST Narrative [facility] - 04/07/2024 2:41 PM EST SPECIMEN HEMOLYZED Generic External Data Provider LAB BLOOD ORDERAB LES Final Result Performing Organization Address [facility] Co de Phone Number [facility] [address] [place] [phone] * (ABNORMAL) Hepatic Function Panel (04/07/2024 2:12 PM EST) Bilirubin, Total 0.6 0.0 - 1.0 mg/dL [facility] Bilirubin, Direct 0.2 0.0 - 0.5 mg/dL [facility] Aspartate Amino Transferase 38(H) 5 - 31 U/L [facility] Alanine Aminotransferase 34(H) 0 - 31 U/L [facility] Total Protein 6.6 6.5 - 8.0 g/dL [facility] Albumin Level 3.7 3.5 - 5.0 g/dL [facility] Alkaline Phosphatase 67 39 - 117 U/L [facility] 04/07/2024 2:12 PM EST 04/07/2024 2:16 PM EST Narrative [facility] - 04/07/2024 2:41 PM EST SPECIMEN HEMOLYZED us Generic External Data Provider LAB BLOOD ORDERAB LES Final Result Performing Organization Address [facility]/ZIP Co de Phone Number [facility] [address] [place] [phone] * XR Chest 2 Views (04/04/2024 10:06 AM EST) Anatomical Region Laterality Modality Chest Radiographic Ludivina ging 04/04/2024 10:0 6 AM EST Narrative 04/04/2024 10:37 AM EST ?[facility] [facility] ?[address] ?[place] [address] ?XRay Report ? Signed ? Patient: Ashley Lawrence,Marita M ?MR#: MM ?? [id number] ? : 1960 ?Acct:[id number] ? Age/Sex: 63 / F ?ADM Date: 04/04/24 ? Loc: HO.HHCX ? Attending Dr: Alexandra Hernandez ORTHOPEDIC CAST SPECIALIST ? Ordering Physician: Alexandra Hernandez NP ?? Date of Service: 04/04/24 ?? Procedure(s): XR chest 2V ?? Accession Number(s): [id number] ? cc: Alexandra Hernandez NP ? EXAMINATION: [...] DD/ 1006 ? TD/TT: 04/04/24 1015 ? Cloth Burler: MSM ? Procedure Note Rogelio, Image - 04/04/[address] [address] XRay Report Signed Patient: Marita Zapata MMR#: MM [id number] : 1960Acct:[id number] Age/Sex: 63 / FADM Date: 04/04/24 Loc: HO.HHCX Attending Dr: Alexandra Hernandez ORTHOPEDIC CAST SPECIALIST Ordering Physician: Alexandra Hernandez ORTHOPEDIC CAST SPECIALIST Date of Service: 04/04/24 Procedure(s): XR chest 2V Accession Number(s): [id number] cc: Alexandra Hernandez ORTHOPEDIC CAST SPECIALIST EXAMINATION: XR CHEST CLINICAL INFORMATION: right sided pain with breathing, fractured ribs? copd COMPARISON: Chest 12/24/2023 TECHNIQUE: 2 views of the chest were obtained. FINDINGS: No significant abnormality is noted involving the heart, lungs, mediastinum, bony thorax or soft tissues. XR/XR chest 2V IMPRESSION: Unremarkable chest examination. Electronically signed by: Roe Vega MD 04/04/2024 10:34 AM EST RP Dictated By: Roe Vega MD Signed By: <Electronically signed by Roe Vega MD in OV> 04/04/24 1034 DD/ 1006 TD/TT: 04/04/24 1015 Cloth Burler: ABEBA Alexandra Hernandez NP IMG XR PROCEDURES Edited Result - Final * (ABNORMAL) Respiratory Allergy Profile Region I (02/05/2024 11:03 AM EST) Mouse Urine Proteins (E72) IgE <0.10 kU/L [facility] Class 0 [facility] Cockroach (I6) IgE <0.10 kU/L [facility] Class 0 [facility] Dermatophagoides farinae (D2) IgE <0.10 kU/L [facility] Class 0 [facility] Cat Dander (E1) IgE <0.10 kU/L [facility] Class 0 [facility] Comment:THIS TEST WAS PERFOR MED AT:[employer] [address] [place] [phone] PADILLA MD Dog Dander (E5) IgE 2.98(A) kU/L [facility] Class 2 [facility] Comment:THIS TEST WAS PERFOR MED AT:[employer] [place] [phone] PADILLA MD L[place] Grass (G6) IgE 3.66(A) kU/L [facility] Class 3 [facility] Cladosporium herbarum (M2) IgE <0.10 kU/L [facility] Class 0 [facility] Aspergillus Fumigatis (M3) IgE 0.10(A) kU/L [facility] Class 0/1 [facility] Alternaria alternata (M6) IgE <0.10 kU/L [facility] Class 0 [facility] Comment:THIS TEST WAS PERFOR MED AT:[employer] [place] [phone] PADILLA MD [place] (t6) IgE <0.10 kU/L [facility] Class 0 [facility] [place] (T7) IgE <0.10 kU/L [facility] Class 0 [facility] [place] (T10) IgE <0.10 kU/L [facility] Class 0 [facility] [place] (T11) IgE <0.10 kU/L [facility] Class 0 [facility] [place] (T14) IgE <0.10 kU/L [facility] Class 0 [facility] White Greg (t15) IgE <0.10 kU/L [facility] Class 0 [facility] [place] (T70) IgE <0.10 kU/L [facility] Class 0 [facility] Common Ragweed (Short) (W1) IgE 0.44(A) kU/L [facility] Class 1 [facility] Mugwort (w6) IgE <0.10 kU/L [facility] Class 0 [facility] Dermatophagoides pteronyssinus (D1) IgE 0.14(A) kU/L [facility] Class 0/1 [facility] Bermuda Grass (g2) IgE 0.16(A) kU/L [facility] Class 0/1 [facility] Penicillium Notatum (M1) IgE 0.18(A) kU/L [facility] Class 0/1 [facility] Birch (T3) IgE <0.10 kU/L [facility] Class 0 [facility] Elm (t8) IgE <0.10 kU/L [facility] Class 0 [facility] Maple (In[place]) (T1) IgE <0.10 kU/L [facility] Class 0 [facility] Rough Pigweed (W14) IgE <0.10 kU/L [facility] Class 0 [facility] Sheep Ione (W18) IgE <0.10 kU/L [facility] Class 0 [facility] Allergen Comment See Below [facility] Comment: Specific ?Level of AllergenIGE Class ?kU/L ? Specific IGE Antibody ----- ? --------- ?0 ?<0.10 ? Absent/Undetectable ??0/1 ?0.10-0.34 ? Very Low Level ??1 ?0.35-0.69 ? Low Level ??2 ?0.70-3.49 ? Moderate Level ??3 ?3.50-17.4 ? High Level ??4 ?17.5-49.9 ? Very High Level ??5 ?50-100 ?Very High Level ??6 ?>100 ?Very High LevelThe clinical relevance of allergen results of0.10-0.34 kU/L are undetermined and intended forspecialist use.Allergens denoted with a include results usingone or more analyte specific reagents. In thosecases, the test was developed and its analyticalperformance characteristics have been determined by[employer]. It has not been cleared or approvedby the U.S. Food and Drug Administration. This assayhas been validated pursuant to the CLIA regulationsand is used for clinical purposes.THIS TEST WAS PERFORMED AT:[employer] [address] ??[phone] PADILLA MD 02/05/2024 11:0 3 AM EST 02/05/2024 11:03 AM EST Generic External Data Provider LAB BLOOD ORDERAB LES Final Result Performing Organization Address [facility] [place] Number [facility] [address] [place] [phone] * Sed Rate by Modified Paola (02/05/2024 11:03 AM EST) Erythrocyte Sedimentation Rate 9 0 - 20 MM/HR [facility] Comment:Patients with polycy themia and many hemoglobin abnormalitiesmay have depressed sed rates whereas patients with anemiamay have elevated sed rates. 02/05/2024 11:0 3 AM EST 02/05/2024 11:03 AM EST Generic External Data Provider LAB BLOOD ORDERAB LES Final Result Performing Organization Address [facility] Phone Number [facility] [address] [place] [phone] * (ABNORMAL) Immunoglobulin E (02/05/2024 11:03 AM EST) Immunoglobulin E 728(A) <FL=928 kU/L [facility] 02/05/2024 11:0 3 AM EST 02/05/2024 11:03 AM EST Generic External Data Provider LAB BLOOD ORDERAB LES Final Result Performing Organization Address [facility]/ZIP Co de Phone Number [facility] [address] [place] [phone] * (ABNORMAL) POCT HGB A1C (02/04/2024 11:40 AM EST) Pathologist [facility] Hemoglobin A1C 8.2(A) 4.0 - 6.0 % QC Media Lot # [id number] Lot# Expiration Date [id number] Blood 02/04/2024 11:4 0 AM EST us Bobby Name POINT OF CARE TEST ENTER/EDIT OR DERABLES Final Result * POCT Glucose (02/04/2024 11:40 AM EST) Pathologist [facility] Glucose Blood, POC 139 60 - 200 mg/dL QC Media Lot # [id number] Lot# Expiration Date [id number] Blood Capillary blood specimen / Unknown 02/04/2024 11:40 AM EST us Bobby Name POINT OF CARE TEST ENTER/EDIT OR DERABLES Final Result * US RENAL BI (01/22/2024 12:32 PM EDT) Anatomical Region Laterality Modality Abdomen Ultrasound 01/22/2024 12:3 2 PM EDT Narrative 03/20/2024 10:41 PM EST ? [facility] ?[address] ?[place] [address] ? Ultrasound Report ? Signed ? Patient: Ashley Lawrence,Marita M ?MR#: MM ?? [id number] ? : 1960 ?Acct:[id number] ? Age/Sex: 63 / F ?ADM Date: 10/25/24 ? Loc: HO.US ? Attending : Blayne Srinivasan MD ? Ordering Physician: Blayne Srinivasan MD ?? Date of Service: 01/22/24 ?? Procedure(s): US renal BI ?? Accession Number(s): [id number] ? cc: Blayne Srinivasan MD; Name,Bobby GRADY ? EXAMINATION: ?? US RETROPERITONEAL LIMITED (RENAL ONLY) ? CLINICAL INFORMATION: ?? Calculus of kidney. ? COMPARISON: ?? Ultrasound renal 07/15/2023 and 01/23/2023. X-ray KUB 06/17/2023 and ?? 09/26/2014. CT kidney stone study 03/18/2023. ? TECHNIQUE: ?? Real-time imaging of the kidneys. ? FINDINGS: ? RIGHT KIDNEY: 11.2 x 3.9 x 3.7 cm (SAG x AP x TRV). The kidney is ?? normal in size, contour, and echogenicity. Renal cortical thickness is ?? normal. No focal parenchymal lesions. There are few echogenic foci seen ?? the largest at the lower pole measuring 3 mm consistent with ?? nonobstructing calculi. There is some mild fullness in the ?? pelvicalyceal system without gross hydronephrosis. Similar findings ?? were seen on the 03/18/2023 CT scan however the largest stone measured ?? 8 mm at that time. ? LEFT KIDNEY: 10.9 x 4.4 x 4.9 cm (SAG x AP x TRV). The kidney is normal ?? in size, contour, and echogenicity. Renal cortical thickness is normal. ?? No focal parenchymal lesions or hydronephrosis. Few echogenic foci ?? noted consistent with nonobstructing calculi the largest measuring 4 mm. ? US/US renal BI ?? IMPRESSION: ?? Bilateral nonobstructing renal calculi. ? Electronically signed by: ??Colin Sharif MD ??03/20/2024 10:38 PM EST ?? RP ? Dictated By: ?Colin Sharif MD ? Signed By: ?<Electronically signed by Colin Sharif MD in OV> ? 03/20/248 ? DD/ 1232 ? TD/TT: 01/22/24 1242 ? Cloth Burler: SS ? Procedure Note Elie Mercado - 03/20/[address] [address] Ultrasound Report Signed Patient: Marita Zapata [facility]#: MM [id number] : 1960Acct:[id number] Age/Sex: 63 / FADM Date: 01/22/24 Loc: HO.US Attending Dr: Blayne Srinivasan MD Ordering Physician: Blayne Srinivasan MD Date of Service: 01/22/24 Procedure(s): US renal BI Accession Number(s): [id number] cc: Blayne Srinivasan MD; Name,Bobby GRADY EXAMINATION: US RETROPERITONEAL LIMITED (RENAL ONLY) CLINICAL INFORMATION: Calculus of kidney. COMPARISON: Ultrasound renal 07/15/2023 and 01/23/2023. X-ray KUB 06/17/2023 and 09/26/2014. CT kidney stone study 03/18/2023. TECHNIQUE: Real-time imaging of the kidneys. FINDINGS: RIGHT KIDNEY: 11.2 x 3.9 x 3.7 cm (SAG x AP x TRV). The kidney is normal in size, contour, and echogenicity. Renal cortical thickness is normal. No focal parenchymal lesions. There are few echogenic foci seen the largest at the lower pole measuring 3 mm consistent with nonobstructing calculi. There is some mild fullness in the pelvicalyceal system without gross hydronephrosis. Similar findings were seen on the 03/18/2023 CT scan however the largest stone measured 8 mm at that time. LEFT KIDNEY: 10.9 x 4.4 x 4.9 cm (SAG x AP x TRV). The kidney is normal in size, contour, and echogenicity. Renal cortical thickness is normal. No focal parenchymal lesions or hydronephrosis. Few echogenic foci noted consistent with nonobstructing calculi the largest measuring 4 mm. US/US renal BI IMPRESSION: Bilateral nonobstructing renal calculi. Electronically signed by: Colin Sharif MD 03/20/2024 10:38 PM [facility] Dictated By: Colin Sharif MD Signed By: <Electronically signed by Colin Sharif MD in OV> 03/20/24 2828 DD/ 1232 TD/TT: 01/22/24 1242 Cloth Burler: RADHA us [facility] External Provider IMG US PROCEDURES Final Result * (ABNORMAL) Albumin, Random Urine W/Creatinine (12/29/2023 11:20 AM EDT) Creatinine, Urine 157.96 mg/dL [facility] Microalbumin Urine 47.0 mg/L [facility] Microalbum Creatinine Ratio Ur 29.7(H) <30 ug/mg cr [facility] Comment:Albumin/Creatinine R at Reference Ranges: Normal: < 30 ug/mg creatinine Microalbuminuria: 30 - 300 ug/mg creatinineClinical Albuminuria: > 300 ug/mg creatinine Urine (Urine, Random) 12/29/2023 11:20 AM EDT 12/29/2023 1:01 PM EDT us Bobby Name LAB URINE ORDERABLES Final Resul t [facility] [address] [place] [phone] * (ABNORMAL) Lipid Panel, Standard (12/29/2023 11:17 AM EDT) Triglycerides 172(H) <150 mg/dL [facility] Comment:Desirable Triglyceri de: less than 150 mg/dLBorderline High Triglyceride 150-199 mg/dLHigh Triglyceride: 200-499 mg/dLVery High Triglyceride: greater than or equal to 5OO mg/dL Cholesterol 140 <200 mg/dL [facility] Comment:Desirable Cholestero l: less than 200 mg/dLBorderline High Cholesterol: 200-239 mg/dLHigh Cholesterol: greater than 239 mg/dL LDL Cholesterol Calculated 61 <100 mg/dL [facility] Comment:Desirable LDL: less than 100 mg/dLNear Optimal/Above Optimal LDL: 110- 129 mg/dLBorderline High LDL: 130-159 mg/dLHigh LDL: 160-189 mg/dLVery High LDL: greater than or equal to 190 mg/dL HDL Cholesterol 45 >40 mg/dL [facility] Comment:Desirable HDL: great er than 40 mg/dL Note: This HDL assay may give artificially low results in patients with liver disease. Blood Venous blood specimen / Unknown 12/29/2023 11:17 AM EDT 12/29/2023 1:03 PM EDT us Bobby David MD LAB BLOOD ORDERABLES Final Resul t [facility] [address] [place] [phone] * (ABNORMAL) Hm Colonoscopy (07/16/2022) Colonoscopy Abnormal( A) Normal Comment:repeat in 3-5 yrs Historical Provider HEALTH MAINTENANCE Final Result * Mammography Report 1 (04/24/2021 10:00 AM EST) Anatomical Region Laterality Modality Breast Bilateral Mammography 04/24/2021 10:0 0 AM EST Narrative 04/24/2021 4:52 PM EST Refer to the Notes tab for result details [facility] Procedure: Mammography Report 1 Procedure Note Provider, Diana, - 06/22/2022 Refer to the Notes tab for result details [facility] Procedure: Mammography Report 1 Bobby Name IMG BI PROCEDURES Final Result * Pap Smear (02/27/2021 10:30 AM EST) HM Pap smear Perfomed Historical Provider HEALTH MAINTENANCE Final Result * THINPREP TIS PAP AND HPV mRNA E6/E7 REFLEX HPV 16,18/45 (02/27/2021 10:24 AM EST) Clinical Information: Postmenopausal [facility] COMMENT SEE COMMENT [facility] Comment: EXPLANATORY NOTE: ? The Pap is a screening test for cervical cancer. It is ?? not a diagnostic test and is subject to false negative ?? and false positive results. It is most reliable when a ?? satisfactory sample, regularly obtained, is submitted ?? with relevant clinical findings and history, and when ?? the Pap result is evaluated along with historic and ?? current clinical information. ?? COMMENT: This Pap test has been evaluated with computer assisted technology. [facility] Infantry Indirect Fire Crewmember: SEE COMMENT [facility] Comment: CULP, CT(ASCP) CT screening location: [address] ??[phone] HPV nRNA E6/E7 Not Detected Not Detected [facility] Comment: Methodology: Wire Bender Hand-Mediated Amplification This assay detects E6/E7 viral messenger RNA (mRNA) from 14 high-risk HPV types (16,18,31,33,35,39,45,51,52,56,58,59,66,68). ? The analytical performance characteristics of this assay have been determined by [employer]. The modifications have not been cleared or approved by the FDA. This assay has been validated pursuant to the CLIA regulations and is used for clinical purposes. ?? For additional information, please refer to http://education.ipatter.com/faq/BFZ703c2 (This link if provided for information/ educational purposes only.) Interpretation/Re sult: Negative for intraepithelial lesion or malignancy. [facility] LMP: NONE GIVEN [facility] Prev. BX: HX ABNL [facility] Prev. PAP: 02/2018 [facility] SOURCE: None given [facility] Statement Of Adequacy: SEE COMMENT [facility] Comment: Satisfactory for evaluation. Endocervical/transformation zone component present. 02/27/2021 10:2 4 AM EST us Monisha Linton CNM LAB PATHOLOGY ORDERABLES Final Result [facility] [address] from Last 3 Months or Most Recently Relevant to Health Maintenance Insurance [facility] Care Teams Charity Fundraiser Relationship Specialty Start Date End Date Name, MD Bobby [address] [place] [phone] PCP - General Family Medicine 06/01/15
--- OUTSIDE RECORDS SUMMARY | 2024-04-21 14:51 | XMS_ITS | Encounter Summary ---
Author Organization [employer] Address [address] [facility] 7t [place] [address] Care Team Providers Care Tool Crib Attendant Name Role Phone Name, Bobby GRADY Primary Care Provider [phone] Inga Magaña PharmD Unavailable [phone] Reason for Visit * Reason Onset Date Comments Med Refill 05/26/2023 Encounter Details Date Type Department Care Team (Late st Contact Info) Description 05/26/2023 Telephone [facility] [address] [place] [address] Name, MD Bobby [address] [place] [address] Med Refill Social History Tobacco Use Types [...] encounter Miscellaneous Notes * Telephone Encounter - Joe Padron - 05/26/2023 8:14 AM EST TC from pt requesting medication refill. Medications needing refill : oxyCODONE-acetaminophen (Percocet) 7.5-325 MG tablet To be sent to: [facility] [place], [place] - [address] [place] [address] documented in this encounter Plan of Treatment Upcoming Encounters Date Type Department Care Team ([facility] st Contact Info) Description 04/27/2024 10:30 AM EST Office Visit [facility] [address] [place] [phone] Zulma Kitchen, ZENON [address] [place] [phone] 05/04/2024 9:00 AM EST Office Visit [address] [address] Name, MD Bobby [address] [place] [phone] 06/17/2024 10:00 AM EDT Telemedicine [address] [phone] Skye Melton RN documented as of this encounter Goals Goal Patient Goal Type Associated Problems Recent Progress Patient-Stated? Author Smoking cessation General No Inga Magaña, PharmD documented as of this encounter Visit Diagnoses Not on filedocumented in this encounter Additional Health Concerns Assessment Noted Time PHQ-9 Depression Total Score: 0 03/11/20 22 11:47 AM EST documented as of this encounter Care Teams Tool Crib Attendant Relationship Specialty Start Date End Date Name, MD Bobby [address] [place] [address] PCP - General Family Medicine 06/01/15 Inga Magaña, PharmD [address] [place] [address] Pharmacist Internal Medicine 01/07/23 09/29/23 documented as of this encounter
--- OUTSIDE RECORDS SUMMARY | 2024-04-21 14:51 | XMS_ITS | Encounter Summary ---
Author Organization [employer] Address [address] [facility] 7t [place] [address] Care Team Providers Care Tile Fitter Name Role Phone Name, Bobby GRADY Primary Care Provider [phone] Encounter Details Date Type Department Care Team (Late st Contact Info) Description 04/14/2024 Orders Only GENERIC EXTERNAL DATA DEPARTMENT Provider, Generic External Data Social History Tobacco Use Types Packs/Day Years [...] as of this encounter Miscellaneous Notes * Result Encounter Note - Shirley Cheatham MD - 04/14/2024 6:57 PM EST Patient has pneumonia, seen at the ED documented in this encounter Plan of Treatment Upcoming Encounters Date Type Department Care Team (Late st Contact Info) Description 04/27/2024 10:30 AM EST Office Visit [facility] [address] [place] [phone] Zulma Kitchen CNP [address] [place] [phone] 05/04/2024 9:00 AM EST Office Visit [address] [address] Name, MD Bobby [address] [place] [address] 06/17/2024 10:00 AM EDT Telemedicine [address] [phone] Skye Melton, HODA documented as of this encounter Goals Goal Patient Goal Type Associated Problems Recent Progress Patient-Stated? Author Smoking cessation General No Puia, Inga, PharmD documented as of this encounter Procedures Procedure Name Priority Date/Time Associated Diagnosis Comments XR CHEST 1 VIEW Routine 04/14/2024 7:22 PM EST HIGH SENSITIVITY TROPONIN I Routine 04/14/2024 6:34 PM EST VENOUS BLOOD GAS Routine 04/14/2024 6:34 PM EST SARS COV2/INFLUENZA A/B AND RSV RNA QL NAAT Routine 04/14/2024 6:34 PM EST CBC WITH AUTO DIFFERENTIAL Routine 04/14/2024 6:34 PM EST B TYPE NATRIURETIC PEPTIDE (BNP) Routine 04/14/2024 6:34 PM EST MAGNESIUM Routine 04/14/2024 6:34 PM EST LACTIC ACID Routine 04/14/2024 6:34 PM EST BASIC METABOLIC PANEL Routine 04/14/2024 6:34 PM EST documented in this encounter Results * XR Chest 1 View (04/14/2024 7:22 PM EST) Anatomical Region Laterality Modality Chest Radiographic Ludivina ging 04/14/2024 7:22 PM EST Narrative 04/14/2024 7:24 PM EST ? [facility] ?[address] ?[place] [address] ?XRay Report ? Signed ? Patient: Marita Zapata ?MR#: [id number] ?? [id number] ? : 1960 ?Acct:[id number] ? Age/Sex: 63 / F ?ADM Date: /16/25 ? Loc: HO.ED ? Attending Dr: ? Ordering Physician: Tequila Luna ?? Date of Service: 04/14/24 ?? Procedure(s): XR chest 1V ?? Accession Number(s): [id number] ? cc: Tequila Luna; Frankie,Bobby GRADY ? CLINICAL HISTORY: sob ? 1 view chest x-ray ? Comparison: Chest x-ray from 04/07/2024 ? Findings: ?? Low lung volumes with mild bibasilar atelectasis/pneumonitis, right worse ?? than left. Moderate emphysematous changes are redemonstrated. ?? Borderline elevation left hemidiaphragm with mild blunting of the ?? costophrenic angles. This may be due to mild effusions or pleural ?? thickening. No pneumothorax. ?? Degenerative changes include imaged shoulders and AC joints with ?? 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 by chest x-ray. ? IMPRESSION: ?? 1. Mild bibasilar atelectasis/pneumonitis. ? 2. Blunting of the costophrenic angles may be due to small and/or minimal ?? effusions. ? This document has been electronically signed by: Peña Burden MD on ?? 04/14/2024 19:22:54 ? Dictated By: ?Peña Burden MD ? Signed By: ?<Electronically signed by Peña Burden MD in OV> ? 04/14/244 ? DD/ 21 ? TD/TT: 04/14/241921 ? Agricultural Aircraft Pilot: ? Procedure Note Elie Mercado - 04/14/[address] [address] XRay Report Signed Patient: Marita Zapata [facility]#: [id number] : 1960Acct:[id number] Age/Sex: 63 / FADM Date: 04/14/24 Loc: HO.ED Attending Dr: Ordering Physician: Tequila Luna Date of Service: 04/14/24 Procedure(s): XR chest 1V Accession Number(s): [id number] cc: Tequila Luna; Name,Bobby GRADY CLINICAL HISTORY: sob 1 view chest x-ray Comparison: Chest x-ray from 04/07/2024 Findings: Low lung volumes with mild bibasilar atelectasis/pneumonitis, right worse than left. Moderate emphysematous changes are redemonstrated. Borderline elevation left hemidiaphragm with mild blunting of the costophrenic angles. This may be due to mild effusions or pleural thickening. No pneumothorax. 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 IMPRESSION: 1. Mild bibasilar atelectasis/pneumonitis. 2. Blunting of the costophrenic angles may be due to small and/or minimal effusions. This document has been electronically signed by: Peña Burden MD on 04/14/2024 19:22:54 Dictated By: Peña Burden MD Signed By: <Electronically signed by Peña Burden MD in OV> 04/14/241923 DD/ 21 TD/TT: 04/14/241921 Agricultural Aircraft Pilot: [facility] External Provider IMG XR PROCEDURES Final Result * (ABNORMAL) SARS-CoV-2 RNA, Influenza A/B, and RSV RNA, Ql NAAT (04/14/2024 6:34 PM EST) Influenza A PCR POSITIVE(A) Negative [facility] Influenza B PCR NEGATIVE Negative [facility] Resp Syncy Virus RNA Qual PCR POSITIVE(A) Negative [facility] SARS COV2 PCR NEGATIVE Negative [facility] Comment:All test results mus t [...] use by authorized laboratories.Testing performed on the [employer] GeneXpert utilizingreal-time RT-PCR.All SARS CoV2 and positive influenza A/B results arereported to [facility]. 04/14/2024 6:34 PM EST 04/14/2024 6:44 PM EST Generic External Data Provider LAB MICROBIOLOGY - GENERAL ORDERABLES Final Result [facility] [address] [place] [phone] * B Type Natriuretic Peptide (BNP) (04/14/2024 6:34 PM EST) Pathologist [facility] B Type Natriuretic Peptide 48 <100 pg/mL [facility] Comment:For those patients w ho are being treated with Natrecor(nesiritide, recombinant BNP), BNP testing should beperformed at least two hours post treatment in order toensure that only endogenous levels of BNP are detected. 04/14/2024 6:34 PM EST 04/14/2024 6:49 PM EST Generic External Data Provider LAB BLOOD ORDERAB LES Final Result Performing Organization Address [facility] Co de Phone Number [facility] [address] [place] [phone] * High Sensitivity Troponin I (04/14/2024 6:34 PM EST) [facility] TROPONIN I HIGH SENSITIVITY 8.5 <3.5 - 17.0 ng/L [facility] Comment:The Grossman high sens itivity Troponin-I results should beused in conjunction with other diagnostic information suchas ECG, clinical observations and information, and patientsymptoms to aid in the diagnosis of MD. 04/14/2024 6:34 PM EST 04/14/2024 6:44 PM EST Generic External Data Provider LAB BLOOD ORDERAB LES Final Result Performing Organization Address City/[facility]/ZIP Co de Phone Number [facility] [address] [place] [phone] * Lactic Acid (04/14/2024 6:34 PM EST) [facility] Lactic Acid 1.7 0.5 - 2.0 mmol/L [facility] 04/14/2024 6:34 PM EST 04/14/2024 6:44 PM EST Generic External Data Provider LAB BLOOD ORDERAB LES Final Result Performing Organization Address [facility]/ZIP Co de Phone Number [facility] [address] [place] [address] [phone] * (ABNORMAL) Magnesium (04/14/2024 6:34 PM EST) Magnesium 3.2(H) 1.6 - 2.6 mg/dL [facility] 04/14/2024 6:34 PM EST 04/14/2024 6:44 PM EST us Generic External Data Provider LAB BLOOD ORDERAB LES Final Result Performing Organization Address [facility]/ZIP Co de Phone Number [facility] [address] [place] [phone] * (ABNORMAL) Basic Metabolic Panel (04/14/2024 6:34 PM EST) Sodium 147(H) 135 - 145 mmol/L [facility] Potassium 3.9 3.3 - 5.1 mmol/L [facility] Chloride 108 96 - 108 mmol/L [facility] Carbon Dioxide 28 22 - 29 mmol/L [facility] Anion Gap 15 12 - 20 [facility] Urea Nitrogen (BUN) 22(H) 9 - 16 mg/dL [facility] Creatinine, Serum 0.81 0.5 - 1.4 mg/dL [facility] Creatinine Clr Calc Pharmacy 72.0 [facility] Comment:Provided height and weight: 165.1 cm,77.111 kg.eGFR (calculated from the MDRD study equation) and eCrCl(calculated from the Cockcroft-Gault equation) are based ondifferent parameters and may not yield comparable results.If eCrCl result is absurd, please check patient'sheight/weight. Estimated Glomerular Filt Rate >60 [facility] Comment:Chronic Kidney Disea se: Estimated GFR < 60 mL/min/1.56r0Vnypvv Kidney Disease: Estimated GFR < 15 mL/min/1.73m2 Glucose 144(H) 60 - 115 mg/dL [facility] Calcium 8.4 8.4 - 10.2 mg/dL [facility] 04/14/2024 6:34 PM EST 04/14/2024 6:44 PM EST us Generic External Data Provider LAB BLOOD ORDERAB LES Final Result [facility] [address] [place] [phone] * (ABNORMAL) CBC auto differential (04/14/2024 6:34 PM EST) White Blood Count 20.6(H) 4.8 - 10.8 X10*3/uL [facility] Red Blood Count 6.18(H) 4.20 - 5.50 X10*6/uL [facility] Hemoglobin 17.6(H) 12.0 - 16.0 g/dl [facility] Hematocrit 53.7(H) 37.0 - 47.0 % [facility] Mean Corpuscular Volume 86.9 80.0 - 98.0 fL [facility] Mean Corpuscular Hemoglobin 28.5 27.0 - 33.0 pg [facility] Mean Corpuscular HGB Conc 32.8 31.0 - 35.0 g/dl [facility] Red Cell Distribution Width 14.7 11.0 - 16.0 % [facility] Platelet Count 317 160 - 400 X10*3/uL [facility] Mean Platelet Volume 10.6 9.4 - 12.3 fL [facility] Neutrophils Percent Auto 80.4(H) 45 - 73 % [facility] Imm Gran Pct Auto 0.6(H) 0.0 - 0.4 % [facility] Lymphocytes Percent Auto 14.2(L) 20 - 40 % [facility] Monocytes Percent Auto 4.6 2 - 11 % [facility] Eosinophils Percent Auto 0.0 0 - 4 % [facility] Basophils Percent Auto 0.2 0 - 2 % [facility] NRBC Pct Auto 0.0 0.0 - 0.2 /100WBC [facility] Neutrophils Absolute Auto 16.5(H) 2.0 - 8.3 x10*3/uL [facility] Imm Gran Abs Auto 0.13(H) 0.00 - 0.03 X10*3/uL [facility] Lymphocytes Absolute Auto 2.9 1.2 - 4.9 X10*3/uL [facility] Monocytes Absolute Auto 0.9 0.1 - 1.2 X10*3/uL [facility] Eosinophils Absolute Auto 0.0 0.0 - 0.4 X10*3/uL [facility] Basophils Absolute Auto 0.0 0.0 - 0.2 X10*3/uL [facility] NRBC Abs Auto 0.000 0.0 - 0.012 X10*3/uL [facility] 04/14/2024 6:34 PM EST 04/14/2024 6:44 PM EST us Generic External Data Provider LAB BLOOD ORDERAB LES Final Result Performing Organization Address [facility] Co de Phone Number [facility] [address] [place] [phone] * (ABNORMAL) VENOUS BLOOD GAS (04/14/2024 6:34 PM EST) VBG pH 7.46(H) 7.32 - 7.43 [facility] VBG PCO2 44 mmHg [facility] VBG PO2 51 mmHg [facility] VBG Base Excess 7.1 mmol/L [facility] VBG HCO3 31(H) 22 - 26 mmol/L [facility] O2 Sat, Maynor 78.0 % [facility] 04/14/2024 6:34 PM EST 04/14/2024 6:55 PM EST us Generic External Data Provider LAB BLOOD ORDERAB LES Final Result Performing Organization Address [facility] Co de Phone Number [facility] [address] [place] [phone] documented in this encounter Visit Diagnoses Not on filedocumented in this encounter Additional Health Concerns Assessment Noted Time PHQ-9 Depression Total Score: 0 06/19/19 24 10:09 AM EDT documented as of this encounter Care Teams Tile Fitter Relationship Specialty Start Date End Date Name, MD Bobby [address] [place] [address] PCP - General Family Medicine 06/01/15 documented as of this encounter
--- OUTSIDE RECORDS SUMMARY | 2024-04-21 14:51 | XMS_ITS | Encounter Summary ---
Author Organization [employer] Address [address] [facility] 7t [place] [address] Care Team Providers Care Hydraulic Rubbish Compactor Mechanic Name Role Phone Name, Bobby GRADY Primary Care Provider [phone] Encounter Details Date Type Department Care Team (Late st Contact Info) Description 04/07/2024 Orders Only [facility] External Provider, [facility] Social History Tobacco Use Types Packs/Day Years [...] your housing situation today? I have marian hanccok 06/19/[address] you li [...] Description 04/27/2024 10:30 AM EST Office Visit [address] [address] Zulma Kitchen CNP [address] [place] [address] 05/04/2024 9:00 AM EST Office Visit [address] [phone] Name, MD Bobby [address] [place] [address] [phone] 06/17/2024 10:00 AM EDT Telemedicine [address] [phone] Skye Melton, HODA documented as of this encounter Goals Goal Patient Goal Type Associated Problems Recent Progress Patient-Stated? Author Smoking cessation General No Archana, Inga, PharmD documented as of this encounter Procedures Procedure Name Priority Date/Time Associated Diagnosis Comments HIGH SENSITIVITY TROPONIN I Routine 04/07/2024 2:12 PM EST PROTHROMBIN TIME-INR Routine 04/07/2024 2:12 PM EST C-REACTIVE PROTEIN Routine 04/07/2024 2: 12 PM EST MAGNESIUM Routine 04/07/2024 2:12 PM EST HEPATIC FUNCTION PANEL Routine 04/07/2024 2:12 PM EST BASIC METABOLIC PANEL Routine 04/07/2024 2:12 PM EST VENOUS BLOOD GAS Routine 04/07/2024 10:2 9 AM EST B TYPE NATRIURETIC PEPTIDE (BNP) Routine 04/07/2024 10:25 AM EST CBC WITH AUTO DIFFERENTIAL Routine 04/07/2024 10:24 AM EST SARS COV2/INFLUENZA A/B AND RSV RNA QL NAAT Routine 04/07/2024 9:58 AM EST XR CHEST 1 VIEW Routine 04/07/2024 9:37 AM EST documented in this encounter Results * (ABNORMAL) C-reactive Protein (04/07/2024 2:12 PM EST) C Reactive Protein 0.85(H) < or = 0.50 mg/dL [facility] 04/07/2024 2:12 PM EST 04/07/2024 2:16 PM EST [facility] - 04/07/2024 2:41 PM EST SPECIMEN HEMOLYZED us Generic External Data Provider LAB BLOOD ORDERAB LES Final Result [facility] [address] [place] [phone] * Magnesium (04/07/2024 2:12 PM EST) Magnesium 1.8 1.6 - 2.6 mg/dL [facility] 04/07/2024 2:12 PM EST 04/07/2024 2:16 PM EST [facility] - 04/07/2024 2:41 PM EST SPECIMEN HEMOLYZED us Generic External Data Provider LAB BLOOD ORDERAB LES Final Result Performing Organization Address City/[facility]/ZIP Co de Phone Number [facility] [address] [place] [phone] * (ABNORMAL) Basic Metabolic Panel (04/07/2024 2:12 PM EST) Sodium 142 135 - 145 mmol/L [facility] Potassium 3.9 3.3 - 5.1 mmol/L [facility] Chloride 111(H) 96 - 108 mmol/L [facility] Carbon Dioxide 22 22 - 29 mmol/L [facility] Anion Gap 13 12 - 20 [facility] Urea Nitrogen (BUN) 17(H) 9 - 16 mg/dL [facility] Creatinine, Serum 0.87 0.5 - 1.4 mg/dL [facility] Creatinine Clr Calc Pharmacy 66.6 [facility] Comment:Provided height and weight: 165.1 cm,76.2 kg.eGFR (calculated from the MDRD study equation) and eCrCl(calculated from the Cockcroft-Gault equation) are based ondifferent parameters and may not yield comparable results.If eCrCl result is absurd, please check patient'sheight/weight. Estimated Glomerular Filt Rate >60 [facility] Comment:Chronic Kidney Disea se: Estimated GFR < 60 mL/min/1.85z7Gwlrkw Kidney Disease: Estimated GFR < 15 mL/min/1.73m2 Glucose 331(H) 60 - 115 mg/dL [facility] Calcium 8.8 8.4 - 10.2 mg/dL [facility] 04/07/2024 2:12 PM EST 04/07/2024 2:16 PM EST Narrative [facility] - 04/07/2024 2:41 PM EST SPECIMEN HEMOLYZED us Generic External Data Provider LAB BLOOD ORDERAB LES Final Result Performing Organization Address City/[facility]/ZIP Co de Phone Number [facility] [address] [place] [phone] * (ABNORMAL) Hepatic Function Panel (04/07/2024 2:12 PM EST) Pathologist [facility] Bilirubin, Total 0.6 0.0 - 1.0 mg/dL [facility] Bilirubin, Direct 0.2 0.0 - 0.5 mg/dL [facility] Aspartate Amino Transferase 38(H) 5 - 31 U/L [facility] Alanine Aminotransferase 34(H) 0 - 31 U/L [facility] Total Protein 6.6 6.5 - 8.0 g/dL [facility] Albumin Level 3.7 3.5 - 5.0 g/dL [facility] Alkaline Phosphatase 67 39 - 117 U/L [facility] 04/07/2024 2:12 PM EST 04/07/2024 2:16 PM EST Narrative [facility] - 04/07/2024 2:41 PM EST SPECIMEN HEMOLYZED us Generic External Data Provider LAB BLOOD ORDERAB LES Final Result [facility] [address] [place] [phone] * High Sensitivity Troponin I (04/07/2024 2:12 PM EST) [facility] TROPONIN I HIGH SENSITIVITY 5.6 <3.5 - 17.0 ng/L [facility] Comment:The Grossman high sens itivity Troponin-I results should beused in conjunction with other diagnostic information suchas ECG, clinical observations and information, and patientsymptoms to aid in the diagnosis of [place]. 04/07/2024 2:12 PM EST 04/07/2024 2:16 PM EST [facility] - 04/07/2024 2:41 PM EST SPECIMEN HEMOLYZED us Generic External Data Provider LAB BLOOD ORDERAB LES Final Result [facility] [address] [place] [address] [phone] * Prothrombin Time-INR (04/07/2024 2:12 PM EST) Pathologist [facility] Prothrombin Time 11.1 10.9 - 12.4 SEC [facility] INTERNATIONAL NORM RATIO 1.0 0.9 - 1.1 [facility] Comment:INTERNATIONAL NORMAL IZED RATIO (INR) [...] PM EST 04/07/2024 2:16 PM EST Narrative [facility] - 04/07/2024 2:30 PM EST SPECIMEN HEMOLYZED us Generic External Data Provider LAB BLOOD ORDERAB LES Final Result [facility] [address] [place] [address] [phone] * VENOUS BLOOD GAS (04/07/2024 10:29 AM EST) [facility] VBG pH 7.43 7.32 - 7.43 [facility] Comment:METER #: [id number] additional_comment: cb sevigs VBG PCO2 40 mmHg [facility] Comment:METER #: [id number] additional_comment: cb sevigs VBG PO2 27 mmHg [facility] Comment:METER #: [id number] additional_comment: cb sevigs VBG Base Excess 2.5 mmol/L [facility] Comment:METER #: [id number] additional_comment: cb sevigs VBG HCO3 26 22 - 26 mmol/L [facility] Comment:METER #: [id number] additional_comment: cb sevigs O2 Sat, Maynor 33.0 % [facility] Comment:METER #: [id number] additional_comment: bri macedo 04/07/2024 10:2 9 AM EST 04/07/2024 10:34 AM EST Generic External Data Provider LAB BLOOD ORDERAB LES Final Result Performing Organization Address [facility] de Phone Number [facility] [address] [place] [phone] * B Type Natriuretic Peptide (BNP) (04/07/2024 10:25 AM EST) [facility] B Type Natriuretic Peptide 26 <100 pg/mL [facility] Comment:For those patients w ho are being treated with Natrecor(nesiritide, recombinant BNP), BNP testing should beperformed at least two hours post treatment in order toensure that only endogenous levels of BNP are detected. 04/07/2024 10:2 5 AM EST 04/07/2024 10:28 AM EST Generic External Data Provider LAB BLOOD ORDERAB LES Final Result Performing Organization Address [facility] Phone Number [facility] [address] [place] [phone] * (ABNORMAL) CBC auto differential (04/07/2024 10:24 AM EST) Pathologist [facility] White Blood Count 12.0(H) 4.8 - 10.8 X10*3/uL [facility] Red Blood Count 5.91(H) 4.20 - 5.50 X10*6/uL [facility] Hemoglobin 16.9(H) 12.0 - 16.0 g/dl [facility] Hematocrit 51.6(H) 37.0 - 47.0 % [facility] Mean Corpuscular Volume 87.3 80.0 - 98.0 fL [facility] Mean Corpuscular Hemoglobin 28.6 27.0 - 33.0 pg [facility] Mean Corpuscular HGB Conc 32.8 31.0 - 35.0 g/dl [facility] Red Cell Distribution Width 14.1 11.0 - 16.0 % [facility] Platelet Count 259 160 - 400 X10*3/uL [facility] Mean Platelet Volume 10.4 9.4 - 12.3 fL [facility] Neutrophils Percent Auto 70.4 45 - 73 % [facility] Imm Gran Pct Auto 0.8(H) 0.0 - 0.4 % [facility] Lymphocytes Percent Auto 16.9(L) 20 - 40 % [facility] Monocytes Percent Auto 9.3 2 - 11 % [facility] Eosinophils Percent Auto 1.8 0 - 4 % [facility] Basophils Percent Auto 0.8 0 - 2 % [facility] NRBC Pct Auto 0.0 0.0 - 0.2 /100WBC [facility] Neutrophils Absolute Auto 8.4(H) 2.0 - 8.3 x10*3/uL [facility] Imm Gran Abs Auto 0.09(H) 0.00 - 0.03 X10*3/uL [facility] Lymphocytes Absolute Auto 2.0 1.2 - 4.9 X10*3/uL [facility] Monocytes Absolute Auto 1.1 0.1 - 1.2 X10*3/uL [facility] Eosinophils Absolute Auto 0.2 0.0 - 0.4 X10*3/uL [facility] Basophils Absolute Auto 0.1 0.0 - 0.2 X10*3/uL [facility] NRBC Abs Auto 0.000 0.0 - 0.012 X10*3/uL [facility] 04/07/2024 10:2 4 AM EST 04/07/2024 10:28 AM EST us Generic External Data Provider LAB BLOOD ORDERAB LES Final Result [facility] [address] [place] [address] [phone] * (ABNORMAL) SARS-CoV-2 RNA, Influenza A/B, and RSV RNA, Ql NAAT (04/07/2024 9:58 AM EST) Influenza A PCR NEGATIVE Negative [facility] Influenza B PCR NEGATIVE Negative [facility] Resp Syncy Virus RNA Qual PCR POSITIVE(A) Negative [facility] SARS COV2 PCR NEGATIVE Negative [facility] Comment:All test results mus t be [...] use by authorized laboratories.Testing performed on the [facility] GeneXpert utilizingreal-time RT-PCR.All SARS CoV2 and positive influenza A/B results arereported to [facility]. 04/07/2024 9:58 AM EST 04/07/2024 10:01 AM EST us Generic External Data Provider LAB MICROBIOLOGY - GENERAL ORDERABLES Final Result [facility] [address] [place] [address] [phone] * XR Chest 1 View (04/07/2024 9:37 AM EST) Anatomical Region Laterality Modality Chest Radiographic Ludivina ging 04/07/2024 9:37 AM EST Narrative 04/07/2024 9:59 AM EST ? [facility] ?[address] ?[place] [address] ?XRay Report ? Signed ? Patient: Marita Zapata M ?MR#: MM ?? [id number] ? : 1960 ?Acct:[id number] ? Age/Sex: 63 / F ?ADM Date: /09/25 ? Loc: HO.ED ? Attending Dr: ? Ordering Physician: Fernando Delacruz MD ?? Date of Service: 04/07/24 ?? Procedure(s): XR chest 1V ?? Accession Number(s): [id number] ? cc: Fernando Delacruz MD; Name,Bobby GRADY ? EXAMINATION: ?? XR CHEST ? CLINICAL INFORMATION: ?? shortness of breath, right sided pain ? COMPARISON: ?? None available. ? TECHNIQUE: ?? Frontal view of the chest was obtained. ? FINDINGS: ?? No significant abnormality is noted involving the heart, lungs, ?? mediastinum, bony thorax or soft tissues. ? XR/XR chest 1V ?? IMPRESSION: ?? Unremarkable chest examination. ? Electronically signed by: ??Roe Vega MD ??04/07/2024 09:56 AM EST RP ? Dictated By: ?Roe Vega MD ? Signed By: ?<Electronically signed by Roe Vega MD in OV> ?04/07/24 0956 ? DD/ 0937 ? TD/TT: 04/07/2447 ? Museum Host/Hostess: MSM ? Procedure Note Rogelio, Image - 04/07/[address] [address] XRay Report Signed Patient: Marita Zapata [employer]#: [id number] : 1960Acct:[id number] Age/Sex: 63 / FADM Date: 04/07/24 Loc: HO.ED Attending Dr: Ordering Physician: Fernando Delacruz MD Date of Service: 04/07/24 Procedure(s): XR chest 1V Accession Number(s): [id number] cc: Fernando Delacruz MD; Name,Bobby GRADY EXAMINATION: XR CHEST CLINICAL INFORMATION: shortness of breath, right sided pain COMPARISON: None available. TECHNIQUE: Frontal view of the chest was obtained. FINDINGS: No significant abnormality is noted involving the heart, lungs, mediastinum, bony thorax or soft tissues. XR/XR chest 1V IMPRESSION: Unremarkable chest examination. Electronically signed by: Roe Vega MD 04/07/2024 09:56 AM EST RP Dictated By: Roe Vega MD Signed By: <Electronically signed by Roe Vega MD in OV> 04/07/24955 DD/ 6 TD/TT: 04/07/24946 Museum Host/Hostess: A[facility] External Provider IMG XR PROCEDURES Final Result documented in this encounter Visit Diagnoses Not on filedocumented in this encounter Additional Health Concerns Assessment Noted Time PHQ-9 Depression Total Score: 0 06/19/19 24 10:09 AM EDT documented as of this encounter Care Teams Hydraulic Rubbish Compactor Mechanic Relationship Specialty Start Date End Date Name, MD Bobby [address] [place] [address] PCP - General Family Medicine 06/01/15 documented as of this encounter
--- OUTSIDE RECORDS SUMMARY | 2024-04-21 14:51 | XMS_ITS | Encounter Summary ---
Author Organization [employer] Address [address] [place] [address] 7 [place] [address] Care Team Providers Care Molecular Biology Director Name Role Phone Name, Bobby GRADY Primary Care Provider Reason for Visit * Reason Comments RESEARCH NURSE RV RESEARCH NURSE RV Encounter Details Date Type Department Care Team ([facility] st Contact Info) Description 04/01/2024 10:00 AM EST Telemedicine [facility] [address] [place] [address] Skye Melton RN Chronic pain syndrome Social History Tobacco Use Types Packs/Day [...] AM EDT documented as of this encounter Progress Notes * Skey Melton RN - 04/01/2024 10:00 AM EST S: Pt called for RESEARCH NURSE Revisit, present and involved with call. Prescribed Percocet 7.5mg Q6hr PRN. States she has been taking as prescribed, last dose taken this morning at 5am. She continues to smoke 10-12 cigarettes daily. She drinks ETOH twice yearly, usually a bloody krishan. She smokes marijuana a 1-2 times a week. She purchases her marijuana from a dispensary and denies having a [employer] card. She denies illicit drug use. Currently rates her pain a 9 and states medication is 40% effective at alleviating her pain. Current pain sites are her lower right scapula around to her right breast area, lower back, knee's L > R, lower legs to her toes. Pt reports recent exposure to someone who is positive COVID. C/O cough making scapular/breast pain worse, symptoms present since03/28/24. Denies fever or nasal congestion. States she self tested and was covid negative. O: RESEARCH NURSE Tele Tier 2. Pt currently prescribed Percocet 7.5mg Q6hr PRN. DIRECTOR TALENT verified today. Rx last filled on 03/29/24. Pill count performed over the phone. Pt reports having 99 pills at this time, 99 at least expected. Medication is not overused by patient. BPI updated today. Pain severity score of 8.3, activity interference score of 8. Previous BPI completed 09/04/23 with pain severity score of 6.8,activity interference score of 6.7. Will update PCP with BPI scoring. [facility]. She declined, states she's going to call and see if she can get an appointment or see if she can have [facility] come to her home. Explained to patient if her symptoms should worsen she may need to go to ER, pt stated she understood. Last PCP visit was 02/04/24, scheduled next 05/04/24. A: RESEARCH NURSE Contract Revisit: Chronic Opioid use related to pain. P: Pt to continue taking medication only as prescribed; Next Tele RESEARCH NURSE RV appointment scheduled for 06/17/24 @ 10am, F/U sooner PRN. Appointment reminder mailed. Pt verbalized understanding and agreed to plan. documented in this encounter Plan of Treatment Upcoming Encounters Date Type Department Care Team (Late st Contact Info) Description 04/27/2024 10:30 AM EST Office Visit [address] [address] Zulma Kitchen CNP [address] [place] [phone] 05/04/2024 9:00 AM EST Office Visit [address] [address] Name, MD Bobby [address] [place] [address] 06/17/2024 10:00 AM EDT Telemedicine [address] [address] Skye Melton, HODA documented as of this encounter Goals Goal Patient Goal Type Associated Problems Recent Progress Patient-Stated? Author Smoking cessation General No Inga Magaña, PharmD documented as of this encounter Visit Diagnoses Diagnosis Chronic pain syndrome documented in this encounter Additional Health Concerns Assessment Noted Time PHQ-9 Depression Total Score: 0 06/19/19 24 10:09 AM EDT documented as of this encounter Care Teams Molecular Biology Director Relationship Specialty Start Date End Date Name, MD Bobby [address] [place] [address] PCP - General Family Medicine 06/01/15 documented as of this encounter
--- OUTSIDE RECORDS SUMMARY | 2024-04-21 14:51 | XMS_ITS | Encounter Summary ---
Author Organization [employer] Address [address] [place] [address] 7t [place] [address] Care Team Providers Care Chief Supply Chain Officer Name Role Phone Name, Bobby GRADY Primary Care Provider [phone] Reason for Visit * Reason Onset Date Comments Med Refill 10/12/2023 Encounter Details Date Type Department Care Team (Late st Contact Info) Description 10/12/[address] [facility] [address] [place] [address] Name, MD Bobby [address] [place] [address] Chronic low back pain with sciatica, sciatica [...] the past 12 months, has t he [employer], gas, oil or water [employer] threatened to shut off services in your [...] encounter Miscellaneous Notes * Telephone Encounter - Dasia [place] RN - 10/12/2023 3:24 PM EDT BALE PILER checked. patient last brain picker 09/14 patient due 10/12. Patient is due for medication, medication queued. * Telephone Encounter - Roderick Sam - 10/12/2023 3:11 PM EDT Tc from pt requesting a refill for oxyCODONE-acetaminophen (Percocet) 7.5-325 MG tablet documented in this encounter Plan of Treatment Upcoming Encounters Date Type Department Care Team (Late st Contact Info) Description 04/27/2024 10:30 [address] EST Office [address] [facility] [address] [place] [address] Zulma Kitchen CNP [address] [place], [place] [phone] 05/04/2024 9:00 AM EST Office Visit [address] [address] NameBobby MD [address] [place] [phone] 06/17/2024 10:00 AM EDT Telemedicine [address] [address] Skye Melton, RN documented as of this [...] documented as of this encounter Care Teams Chief Supply Chain Officer Relationship Specialty Start Date End Date NameBobby MD [address] [place] [phone] PCP - General Family Medicine 06/01/15 documented as of this encounter
--- OUTSIDE RECORDS SUMMARY | 2024-04-21 14:51 | XMS_ITS | Encounter Summary ---
Author Organization [employer] Address [address] [facility] 7t [place] [address] Care Team Providers Care Data Programmer Name Role Phone Name, Bobby GRADY Primary Care Provider [phone] Reason for Visit * Reason Onset Date Comments Nurse Triage 04/01/2024 Encounter Details Date Type Department Care Team ([facility] st Contact Info) Description 04/01/2024 Telephone [facility] [address] [place] [address] Name, MD Bobby [address] [place] [address] Nurse Triage Social History Tobacco Use Types [...] Telephone Encounter - Kianna Virk RN - 04/01/2024 1:21 PM EST called pt to triage, spoke to pt. pt states several days duration of right shoulder pain that radiates into the left breast area. pt denies known injury. pt states pain with with cough, and has mild congestion and cough currently. given appt Thursday with blue team provider at 9:30 for exam. advised home care: rest, fluids, ice, heat, OTC pain reliever as needed, and call back if worsening or new concerns. pt understands and agrees with plan. insurance verified. Pt advised to seek ER evaluation if worsening or severe symptoms. Protocol Used: Shoulder Pain (Adult) Protocol-Based Disposition: See in Office or Video Visit within 3 Days Video visit offer not recorded Positive Triage Question: * Moderate pain (e.g., interferes with normal activities) and present > 3 days * All higher-acuity triage questions were negative Care Advice Discussed: * Reassurance and Education - Shoulder Pain * Pain Medicines * Reasons To Call Back - Chest pain or difficulty breathing occurs - Moderate pain (such as interferes with normal activities) lasts over 3 days - Mild pain lasts over 7 days - You become worse * Telephone Encounter - Maria Eugenia Vickers - 04/01/2024 10:28 AM EST Symptom: Shoulder Pain - Not From Injury Outcome: Schedule an urgent appointment (within 1 hour) or talk to a nurse or provider soon Reason: Severe pain now The caller accepted this outcome. documented in this encounter Plan of Treatment Upcoming Encounters Date Type Department Care Team (Late st Contact Info) Description 04/27/2024 10:30 AM EST Office Visit [address] [address] Zulma Kitchen CNP [address] [place] [phone] 05/04/2024 9:00 AM EST Office Visit [address] [address] Name, MD Bobby [address] [place] [phone] 06/17/2024 10:00 AM EDT Telemedicine [address] [address] Skye Melton, HODA documented as of this encounter Goals Goal Patient Goal Type Associated Problems Recent Progress Patient-Stated? Author Smoking cessation General No Archana, Inga, PharmD documented as of this encounter Visit Diagnoses Not on filedocumented in this encounter Additional Health Concerns Assessment Noted Time PHQ-9 Depression Total Score: 0 06/19/19 24 10:09 AM EDT documented as of this encounter Care Teams Data Programmer Relationship Specialty Start Date End Date NameBobby MD [address] [place] [phone] PCP - General Family Medicine 06/01/15 documented as of this encounter
--- OUTSIDE RECORDS SUMMARY | 2024-04-21 14:51 | XMS_ITS | Encounter Summary ---
Author Organization [employer] Address [address] [facility] 7 [place] [address] Care Team Providers Care Identity Management Consultant Name Role Phone Name, Bobby GRADY Primary Care Provider [phone] Reason for Visit * Reason Onset Date Comments Referral 04/14/2024 Encounter Details Date Type Department Care Team ([facility] st Contact Info) Description 04/14/2024 Telephone [facility] MEDICINE 230 [place] [address] Name, MD Bobby 230 [place] [address] Referral Social History Tobacco Use Types Packs/Day Years [...] the past 12 months, has t he [employer], gas, oil or water [employer] threatened to shut off services in your [...] Telephone Encounter - Patricia Campos RN - 04/15/2024 11:18 AM EST TC placed to pt regarding [employer] services. Pt reports currently re-hospitalized. Pt was admitted 04/07/24-04/12/24 dx RSV and COPD and returned to the ED 04/14/24 and is currently admitted and being treatedfor acute exacerbation of COPD and Influenza A. Advised pt to call [employer] company of choice when feeling better regarding services and request an evaluation. Nurse informed once they come and do evaluation, they will fax over information to our office. Pt verbalized understanding and denies any questions or concerns at this time. * Telephone Encounter - Patricia Campos RN - 04/15/2024 10:58 AM EST TC placed to pt regarding [employer] services. Pt requesting call back in 10 minutes as there is a nurse with her at this time. Nurse to call back. * Telephone Encounter - Jose F White - 04/14/2024 10:30 AM EST Tc from pt requesting call back to discuss [employer] services. She is currently bedridden and doesn't have anyone to help on the weekends. Please contact pt at [phone]. documented in this encounter Plan of Treatment Upcoming Encounters Date Type Department Care Team (Late st Contact Info) Description 04/27/2024 10:30 AM EST Office Visit [address] [phone] Zulma Kitchen, ZENON 230 [place], [place] [phone] 05/04/2024 9:00 AM EST Office Visit [address] [phone] Name, MD Bobby [address] [place] [address] [phone] 06/17/2024 10:00 AM EDT Telemedicine [address] [phone] Skye Melton, HODA documented as of this encounter Goals Goal Patient Goal Type Associated Problems Recent Progress Patient-Stated? Author Smoking cessation General No Inga Magaña, PharmD documented as of this encounter Visit Diagnoses Not on filedocumented in this encounter Additional Health Concerns Assessment Noted Time PHQ-9 Depression Total Score: 0 06/19/19 24 10:09 AM EDT documented as of this encounter Care Teams Identity Management Consultant Relationship Specialty Start Date End Date Name, MD Bobby [address] [place] [address] [phone] PCP - General Family Medicine 06/01/15 documented as of this encounter
--- OUTSIDE RECORDS SUMMARY | 2024-04-21 14:51 | XMS_ITS | Encounter Summary ---
Author Organization [employer] Address 75 [facility] 7t [place] [address] Care Team Providers Care Sand Cutter Operator Name Role Phone Name, Bobby GRADY Primary Care Provider [phone] Reason for Visit * Reason Onset Date Comments Chart Prep 04/12/2024 Encounter Details Date Type Department Care Team ([facility] st Contact Info) Description 04/12/2024 Telephone [facility] MEDICINE 230 [place] [address] Name, MD Bobby [address] [place] [address] Chart Prep Social History Tobacco Use Types Packs/Day Years [...] encounter Miscellaneous Notes * Telephone Encounter - Montez Vickers [place] - 04/12/2024 1:36 PM EST Chart Prep Labs: done Images: done Vaccines due: yes Hep A RSV Referrals: pending appt Screenings: STI screening Mammogram Hep C Cervical Cancer Overdue care gaps: A1C Glucose documented in this encounter Plan of Treatment Upcoming Encounters Date Type Department Care Team (Late st Contact Info) Description 04/27/2024 10:30 AM EST Office Visit [facility] MED[facility]INE [address] [place] [address] Zulma Kitchen CNP [address] [place] [address] 05/04/2024 9:00 AM EST Office Visit [address] [address] Name, MD Bobby [address] [place] [address] 06/17/2024 10:00 AM EDT Telemedicine [address] [place] [address] Skye Melton, RN documented as of this encounter Goals Goal Patient Goal Type Associated Problems Recent Progress Patient-Stated? Author Smoking cessation General No Inga Magaña, PharmD documented as of this encounter Visit Diagnoses Not on filedocumented in this encounter Additional Health Concerns Assessment Noted Time PHQ-9 Depression Total Score: 0 06/19/19 24 10:09 AM EDT documented as of this encounter Care Teams Sand Cutter Operator Relationship Specialty Start Date End Date Name, MD Bobby [address] [place] [address] PCP - General Family Medicine 06/01/15 documented as of this encounter
--- OUTSIDE RECORDS SUMMARY | 2024-04-21 14:51 | XMS_ITS | Encounter Summary ---
Author Organization [employer] Address [address] [place] [address] 7t [place] [address] Care Team Providers Care Waiter/Waitress Cabin Class Name Role Phone Name, Bobby GRADY Primary Care Provider [phone] Inga Magaña PharmD Unavailable [phone] Reason for Visit * Reason Comments Med Refill Encounter Details Date Type Department Care Team ([facility] Contact Info) Description 11/18/2022 Refill [facility] MEDICINE 230 [place] [address] Sherly Pichardo, GEETA 505 [place] [address] Type 2 diabetes mellitus without complications (CMS/LTAC, [facility]IN [facility]) Social History Tobacco Use Types Packs/Day Years [...] Upcoming Encounters Date Type Department Care Team ([facility] Contact Info) Description 04/27/2024 10:30 AM EST Office Visit [facility] MEDICINE 230 [place] [address] Zulma Kitchen CNP 230 [place] [address] 05/04/2024 9:00 AM EST Office Visit [address] [address] Name, MD Bobby [address] [place] [address] 06/17/2024 10:00 AM EDT Telemedicine [facility] MEDICINE [address] [place] [address] Skye Melton RN documented as of this encounter Visit Diagnoses Diagnosis Type 2 diabetes mellitus without complications (CMS/HCC) documented in this encounter Additional Health Concerns Assessment Noted Time PHQ-9 Depression Total Score: 0 03/11/20 11:47 AM EST documented as of this encounter Care Teams Waiter/Waitress Cabin Class Relationship Specialty Start Date End Date Name, MD Bobby [address] [place] [address] PCP - General Family Medicine 06/01/15 Inga Magaña PharmD [address] [place] [address] Pharmacist Internal Medicine 01/07/23 09/29/23 documented as of this encounter
--- OUTSIDE RECORDS SUMMARY | 2024-04-21 14:51 | XMS_ITS | Encounter Summary ---
Author Organization [employer] Address [address] [place] [address] 7 [place] [address] Care Team Providers Care Vermin Exterminator Name Role Phone Name, Bobby GRADY Primary Care Provider Inga Magaña PharmD Unavailable [phone] Reason for Visit * Reason Onset Date Comments Prior Authorization 01/21/2023 HumaLOG KWIK PEN 100 UNIT/ML injection Encounter Details Date Type Department Care Team ([facility] st Contact Info) Description 01/21/2023 Telephone [facility] MEDICINE 230 [place], [place] [phone] Name, MD Bobby 230 [place] [address] Prior Authorization (HumaLOG KWIKPEN 100 UNIT/ML injection) Social History Tobacco Use Types Packs/Day Years [...] encounter Miscellaneous Notes * Telephone Encounter - Shahrzad White - 01/27/2023 11:44 AM EDT PA Started in Cover My Meds for below medication * Telephone Encounter - Bessy Guerin - 01/21/2023 1:49 PM EDT Tc from pt calling in regards to HumaLOG KWIKPEN 100 UNIT/ML injection. Was told by pharmacy medication needs a PA. documented in this encounter Plan of Treatment Upcoming Encounters Date Type Department Care Team (Late st Contact Info) Description 04/27/2024 10:30 AM EST Office Visit [facility] MED[facility]INE [address] [place] [address] Zulma Kitchen CNP 230 [place] [address] 05/04/2024 9:00 AM EST Office Visit [facility] [address] [place] [address] Name, MD Bobby [address] [place] [address] 06/17/2024 10:00 AM EDT Telemedicine [facility]INE [address] [place] [address] Skye Melton, HODA documented as of this encounter Goals Goal Patient Goal Type Associated Problems Recent Progress Patient-Stated? Author Smoking cessation General No Inga Magaña, MiltonD documented as of this encounter Visit Diagnoses Not on filedocumented in this encounter Additional Health Concerns Assessment Noted Time PHQ-9 Depression Total Score: 0 03/11/20 11:47 AM EST documented as of this encounter Care Teams Vermin Exterminator Relationship Specialty Start Date End Date Name, MD Bobby 230 [place] [address] PCP - General Family Medicine 06/01/15 Inga Magaña, MiltonD 230 [place] [address] Pharmacist Internal Medicine 01/07/23 09/29/23 documented as of this encounter
--- OUTSIDE RECORDS SUMMARY | 2024-04-21 14:51 | XMS_ITS | Encounter Summary ---
Author Organization [employer] Address [address] [facility] 7t [place] [address] Care Team Providers Care Lead Java Programmer Name Role Phone Name, Bobby GRADY Primary Care Provider [phone] Reason for Visit * Reason Comments Med Refill Encounter Details Date Type Department Care Team ([facility] st Contact Info) Description 04/04/2024 Refill [facility] MEDICINE 230 [place], [place] [phone] Name, MD Bobby 230 [place] [address] Social History Tobacco Use Types Packs/Day Years [...] Telephone Encounter - Cady Myers RN - 04/04/2024 1:13 PM EST T/C to pt to advise of message from team provider re: normal CXR and poc. No answer, v/m left to return call to [facility] team nurses. * Telephone Encounter - Cady Myers RN - 04/04/2024 1:11 PM EST ----- Message from Alexandra Hernandez sent at 04/04/2024 12:40 PM EST ----- X-ray normal, pain likely msk strain Continue to treat copd as discussed, update for failure to imrpove, thank you ----- Message ----- From: Jimena Ris Results In Sent: 04/04/2024 10:37 AM EST To: Alexandra Hernandez NP documented in this encounter Plan of Treatment Upcoming Encounters Date Type Department Care Team (Late st Contact Info) Description 04/27/2024 10:30 AM EST Office Visit [address] [address] Zulma Kitchen, ZENON 230 [place], [place] [phone] 05/04/2024 9:00 AM EST Office Visit [address] [address] Name, MD Bobby [address] [place] [address] [phone] 06/17/2024 10:00 AM EDT Telemedicine [address] [phone] Skye Melton, HODA documented as of this encounter Goals Goal Patient Goal Type Associated Problems Recent Progress Patient-Stated? Author Smoking cessation General Inga Radford, PharmD documented as of this encounter Visit Diagnoses Not on filedocumented in this encounter Additional Health Concerns Assessment Noted Time PHQ-9 Depression Total Score: 0 06/19/19 24 10:09 AM EDT documented as of this encounter Care Teams Lead Java Programmer Relationship Specialty Start Date End Date Name, MD Bobby [address] [place] [address] [phone] PCP - General Family Medicine 06/01/15 documented as of this encounter
--- OUTSIDE RECORDS SUMMARY | 2024-04-21 14:51 | XMS_ITS | Encounter Summary ---
Author Organization [employer] Address [address] [facility] 7t [place] [address] Care Team Providers Care Nurse Ldr Name Role Phone Name, Bobby GRADY Primary Care Provider [phone] Reason for Visit * Reason Onset Date Comments BPI Scoring / C/O scapular to right breast pain 04/01/2024 Encounter Details Date Type Department Care Team ([facility] st Contact Info) Description 04/01/2024 Telephone [facility] MEDICINE 230 [place] [address] Skye Melton RN BPI Scoring / C/O scapular to right breast pain Social History Tobacco Use Types Packs/Day Years [...] Encounter - Skye Melton RN - 04/01/2024 10:36 AM EST Pt had Tele ELEMENTARY ART TEACHER RV today BPI updated today. Pain severity score of 8.3, activity interference score of 8. Previous BPI completed 09/04/23 with pain severity score of 6.8, activity interference score of 6.7. Pt reports recent exposure to someone who is positive COVID. C/O cough making scapular/breast pain worse, symptoms present since 03/28/24. Denies fever or nasal congestion. States she self tested andwas covid negative. Advised patient to be seen in [facility] for evaluation of above symptoms. She declined, states she's going to call and see if she can get an appointment or see if she can have [facility] come to her home. Explained to patient if her symptoms should worsen she may need to go to ER, pt stated she understood. documented in this encounter Plan of Treatment Upcoming Encounters Date Type Department Care Team (Late st Contact Info) Description 04/27/2024 10:30 AM EST Office Visit [facility] MEDICINE [address] [place] [address] Zulma Kitchen ZENON 230 [place] [address] 05/04/2024 9:00 AM EST Office Visit [address] [phone] Bobby David MD [address] [place] [address] 06/17/2024 10:00 AM EDT Telemedicine [address] [phone] Skye Melton, HODA documented as of this encounter Goals Goal Patient Goal Type Associated Problems Recent Progress Patient-Stated? Author Smoking cessation General No Inga Magaña, PharmD documented as of this encounter Visit Diagnoses Not on filedocumented in this encounter Additional Health Concerns Assessment Noted Time PHQ-9 Depression Total Score: 0 06/19/19 24 10:09 AM EDT documented as of this encounter Care Teams Nurse Ldr Relationship Specialty Start Date End Date NameBobby MD [address] [place] [address] [phone] PCP - General Family Medicine 06/01/15 documented as of this encounter
--- OUTSIDE RECORDS SUMMARY | 2024-04-21 14:51 | XMS_ITS | Encounter Summary ---
Author Organization [employer] Address 75 [facility] 7t [place] [address] Care Team Providers Care Process Excellence Manager Name Role Phone Name, Bobby GRADY Primary Care Provider [phone] Encounter Details Date Type Department Care Team (Late st Contact Info) Description 04/21/2024 Orders Only GENERIC EXTERNAL DATA [...] Description 04/27/2024 10:30 AM EST Office Visit [address] [phone] Zulma Kitchen CNP [address] [place] [address] 05/04/2024 9:00 AM EST Office Visit [address] [phone] Name, MD Bobby [address] [place] [address] [phone] 06/17/2024 10:00 AM EDT Telemedicine [address] [phone] Skye Melton, HODA documented as of this encounter Goals Goal Patient Goal Type Associated Problems Recent Progress Patient-Stated? Author Smoking cessation General No Inga Magaña, Lucio documented as of this encounter Procedures Procedure Name Priority Date/Time Associated Diagnosis Comments VENOUS BLOOD GAS Routine 04/21/2024 12:5 8 PM EST XR CHEST 1 VIEW Routine 04/21/2024 11:56 AM EST documented in this encounter Results * (ABNORMAL) VENOUS BLOOD GAS (04/21/2024 12:58 PM EST) VBG pH 7.47(H) 7.32 - 7.43 [facility] Comment:METER #: [id number] additional_comment: Cb paradim VBG PCO2 42 mmHg [facility] Comment:METER #: [id number] additional_comment: Cb paradim VBG PO2 45 mmHg [facility] Comment:METER #: [id number] additional_comment: Cb paradim VBG Base Excess 7.4 mmol/L [facility] Comment:METER #: [id number] additional_comment: Cb paradim VBG HCO3 31(H) 22 - 26 mmol/L [facility] Comment:METER #: [id number] additional_comment: Cb paradim O2 Sat, Maynor 70.0 % [facility] Comment:METER #: [id number] additional_comment: Cb paradim 04/21/2024 12:5 8 PM EST 04/21/2024 1:02 PM EST us Generic External Data Provider LAB BLOOD ORDERAB LES Final Result [facility] [address] [place] [address] [phone] * XR Chest 1 View (04/21/2024 11:56 AM EST) Anatomical Region Laterality Modality Chest Radiographic Ludivina ging 04/21/2024 11:5 6 AM EST Narrative 04/21/2024 1:29 PM EST ? [facility] ?[address] ?[place] [address] ?XRay Report ? Signed ? Patient: Marita Zapata ?MR#: [id number] ?? [id number] ? : 1960 ?Acct:[id number] ? Age/Sex: 63 / F ?ADM Date: 01/23/25 ? Loc: HO.ED ? Attending Dr: ? Ordering Physician: Maritza Pineda ?? Date of Service: 04/21/24 ?? Procedure(s): XR chest 1V ?? Accession Number(s): [id number] ? cc: Maritza Pineda; Name,Bobby GRADY ? [...] DD/ 1156 ? TD/TT: 04/21/24 1311 ? Tender Labor: ? Procedure Note Dongloter, Image - 04/21/2024 [place] [address] XRay Report Signed Patient: Marita Zapata MMR#: [id number] : 1960Acct:[id number] Age/Sex: 63 / FADM Date: 04/21/24 Loc: HO.ED Attending Dr: Ordering Physician: Maritza Pineda Date of Service: 04/21/24 Procedure(s): XR chest 1V Accession Number(s): [id number] cc: Maritza Pineda; Name,Bobby GRADY EXAMINATION: XR [...] by: Felton Ovalle MD 04/21/2024 01:26 PM [facility] Dictated By: Felton Ovalle MD Signed By: <Electronically signed by Felton Ovalle MD in OV> 04/21/24 1326 DD/ 1156 TD/TT: 04/21/24 1311 Tender Labor: [facility] External Provider IMG XR PROCEDURES Final Result documented in this encounter Visit Diagnoses Not on filedocumented in this encounter Additional Health Concerns Assessment Noted Time PHQ-9 Depression Total Score: 0 06/19/19 24 10:09 AM EDT documented as of this encounter Care Teams Process Excellence Manager Relationship Specialty Start Date End Date Name, MD Bobby [address] [place] [address] PCP - General Family Medicine 06/01/15 documented as of this encounter
--- OUTSIDE RECORDS SUMMARY | 2024-04-21 14:51 | XMS_ITS | Encounter Summary ---
Author Organization [employer] Address 75 [facility] 7t [place] [address] Care Team Providers Care Actuarial Assistant Name Role Phone Name, Bobby GRADY Primary Care Provider [phone] Encounter Details Date Type Department Care Team (Latest Contact Info) Description 04/01/2024 Travel Social History Tobacco Use Types Packs/Day Years [...] Description 04/27/2024 10:30 AM EST Office Visit [address] [address] Zulma Kitchen CNP [address] [place] [address] 05/04/2024 9:00 AM EST Office Visit [address] [address] Name, MD Bobby [address] [place] [address] 06/17/2024 10:00 AM EDT Telemedicine [address] [phone] Skye Melton, HODA documented as of this encounter Goals Goal Patient Goal Type Associated Problems Recent Progress Patient-Stated? Author Smoking cessation General No Inga Magaña, PharmD documented as of this encounter Visit Diagnoses Not on filedocumented in this encounter Additional Health Concerns Assessment Noted Time PHQ-9 Depression Total Score: 0 06/19/19 24 10:09 AM EDT documented as of this encounter Care Teams Actuarial Assistant Relationship Specialty Start Date End Date NameBobby MD [address] [place] [address] PCP - General Family Medicine 06/01/15 documented as of this encounter
--- OUTSIDE RECORDS SUMMARY | 2024-04-21 14:52 | XMS_ITS | Encounter Summary ---
Author Organization [employer] Address [address] [place] [address] 7t [place] [address] Care Team Providers Care Fiberglass Ski Maker Name Role Phone Name, Bobby GRADY Primary Care Provider [phone] Inga Magaña PharmD Unavailable [phone] Reason for Visit * Reason Comments Med Refill Encounter Details Date Type Department Care Team ([facility] Contact Info) Description 04/07/2022 Refill [facility] MEDICINE [address] [place] [address] Sherly Pichardo, TELECOMMUNICATION TOWER TECHNICIAN [address] [place] [address] Chronic low back pain with sciatica, sciatica laterality unspecified, unspecified back pain laterality Social History Tobacco Use Types Packs/Day Years Used Date Smoking Tobacco: Every Day Cigarettes Smokeless Tobacco: Current Depression Answer Date Recorded Patient Health Questionnaire-9 [...] suspected to have Coronavirus/COVID-19? No / Unsure 03/10/2022 9:24 AM EST documented as of this encounter Plan of Treatment Upcoming Encounters Date Type Department Care Team ([facility] st Contact Info) Description 04/27/2024 10:30 AM EST Office Visit [facility] MEDICINE [address] [place] [address] Zulma Kitchen CNP 230 [place] [address] 05/04/2024 9:00 AM EST Office Visit [address] [address] Name, MD Bobby [address] [place] [address] 06/17/2024 10:00 AM EDT Telemedicine [address] [address] Skye Melton, HODA documented as of this encounter Visit Diagnoses Diagnosis Chronic low back pain with sciatica, sciatica laterality unspecified, unspecified back pain laterality documented in this encounter Additional Health Concerns Assessment Noted Time PHQ-9 Depression Total Score: 0 03/11/20 22 11:47 AM EST documented as of this encounter Care Teams Fiberglass Ski Maker Relationship Specialty Start Date End Date Frankie, MD Bobby [address] [place] [address] PCP - General Family Medicine 06/01/15 Inga Magaña PharmD [address] [place] [address] Pharmacist Internal Medicine 01/07/23 09/29/23 documented as of this encounter
--- OUTSIDE RECORDS SUMMARY | 2024-04-21 14:52 | XMS_ITS | Encounter Summary ---
Author Organization [employer] Address [address] [place] [address] 7t [place] [address] Care Team Providers Care Floorwalker Name Role Phone NameBobby MD Primary Care Provider Inga Magaña PharmD Unavailable [phone] Encounter Details Date Type Department Care Team (Late st Contact Info) Description 03/05/2022 Telephone [facility] MEDICINE [address] [place] [address] Monisha Linton CNM [address] [place] [address] Social History Tobacco Use Types Packs/Day Years Used Date Smoking Tobacco: Never Assessed Comments Unknown Sex and Gender Information Value [...] Description 04/27/2024 10:30 AM EST Office Visit [facility] MEDICINE [address] [place] [address] Zulma Kitchen CNP [address] [place] [address] 05/04/2024 9:00 AM EST Office Visit [facility] MEDICINE [address] [place] [address] NameBobby MD [address] [place] [address] 06/17/2024 10:00 AM EDT Telemedicine [facility] MEDICINE [address] [place] [address] [phone] Skye Melton, RN documented as of this encounter Visit Diagnoses Not on filedocumented in this encounter Care Teams Floorwalker Relationship Specialty Start Date End Date Name, MD Bobby [address] [place] [address] PCP - General Family Medicine 06/01/15 Inga Magaña PharmD [address] [place] [address] Pharmacist Internal Medicine 01/07/23 09/29/23 documented as of this encounter
--- OUTSIDE RECORDS SUMMARY | 2024-04-21 14:52 | XMS_ITS | Data Portability ---
Author Organization [employer] [facility] [place] Address [address] [place] [id number] Care Team Providers Care Executive Vice President And Chief Financial Officer Name Role Phone HIM CCA OTHER NAME, MOHINI Primary Care Provider Assessment Encounter Date Assessment Date Assessment LastModified by Organization Details LastModified Time 05/27/2023 05/27/2023 I provided real -time medical direction via phone for this encounter, and was available for additional phone based assistance as needed. I have reviewed and agree with the Assessment and Plan as documented by the Sock Examiner. We discussed the diagnostic uncertainty of home visits and the risk associated with this. In this case the patient and I felt this to be an acceptable and reasonable amount of risk given the benefit of avoiding an ED visit. The patient given the opportunity to ask questions. Advised if develops CP/severe SOB/turning blue/uncontrolle d n/v/d or black/bloody emesis or stool/ AMS/ syncope/ hi fever unresponsive to APAP to call 911- verbalized understanding of instructions [email or web address] Not available 05/27/2023 10:52:57 08/31/2023 08/31/2023 Ms. Marita Lawrence is a 62yoF w/ a PmHx of COPD on daily 5mg prednisone who is seen today for further evaluation of wheezing and shortness of breath. Ms. Lawrence reports that she believes she is having a flair of her COPD 2/2 allergies. She has been using her duoneb every four hours and continues to feel wheezy. She reports good effect with prednisone increases to help with her symptoms. She denies fevers/chills. She endorses a baseline cough of thick white sputum without change. She did a neb one hour prior to criminal investigator arrival. VSS, SpO2 95% on RA. Sock Examiner on site reports wheezing b/l. Allergy to azithromycin. Will treat with prednisone taper; she had good relief and tolerated her last prescription from [facility] well and will treat similarily. Given 40mg PO predisone on site and rx sent to pharmacy. [email or web address] Not available 08/31/2023 11:33:22 10/19/2023 10/19/2023 service called for cough, RASCON found 62 rutsy with Hx COPD on daily 5mg prednisone HTN c/o increased wheezing, cough with clear sputum, RASCON c/w prior COPD exacerbation pt attributes to recent heat and humidity last COPD flare ~1month prior, required PO pred taper verified ALL, triage note references allergy to Metoprolol which is not present for this patient VS noted af, 91% RA b/l diffuse rhonchi, wheeze #Acute COPD Exacerbation most likely weather related contnue home nebs q4h PO pred taper cefpodox course [email or web address] Not available 10/19/2023 23:50:27 Plan of Treatment Reminders Order Date Submit Date Provider Last Modified By Organization Details Last Modified Time Details Appointments None recorded. Lab rapid SARS CoV 2 Ag, QL IA, respiratory specimen 2023 024 [email or web address] 0 [facility], [address] [place] [address], [id number], 4 11:19:29 rapid flu (A+B) 2023 024 [email or web address] 0 [facility], [address] [place] [address], [id number], 4 11:19:31 rapid strep group A, throat 2023 024 [email or web address] 0 [facility], [address] [place] [address], [id number], 4 11:19:33 glucose, fingerstick , blood 2023 024 [email or web address] 0 [facility], [address] [place] [address], [id number], 4 11:30:51 rapid SARS CoV 2 Ag, QL IA, respiratory specimen 2023 024 NANCY [facility], [address] [place] [address], [id number], 4 09:38:44 rapid flu (A+B) 2023 024 [facility], [address] [place] [address], [id number], 4 09:37:23 rapid strep group A, throat 2023 024 [facility], [address] [place] [address], [id number], 4 09:37:50 BMP, serum or plasma 2023 024 [facility], [address] [place] [address], [id number], 4 09:38:18 rapid SARS CoV 2 Ag, QL IA, respiratory specimen 2023 024 [facility], [address] [place] [address], [id number], 4 18:31:32 rapid flu (A+B) 2023 024 [facility], [address] [place] [address], [id number], 4 18:31:52 BMP, serum or plasma 2023 024 [facility], [address] [place] [address], [id number], 4 18:32:18 Referral None recorded. Procedures None recorded. Surgeries None recorded. Imaging None recorded. Medication Orders albuterol sulfate 2.5 mg/3 mL (0.083 %) solution for nebulizatio n 2023 024 [email or web address] 0 Not available 4 11:19:26 prednisone 20 mg tablet 2023 [email or web address] 0 Not available 4 11:19:25 prednisone 20 mg tablet 2023 024 [facility], [address], [place], [id number], 4 13:43:28 prednisone 10 mg tablet 2023 024 [id number], [address], [place], [id number], 4 11:18:33 prednisone 10 mg tablet 2023 024 [facility], [address] [place] [address], [id number], 4 12:00:49 prednisone 20 mg tablet [address] [address] [facility], [address] [place] [address], [id number], 4 11:33:48 cefpodoxime 200 mg tablet 2023 024 [facility], [address] [place] [address], [id number], 4 13:59:54 prednisone 20 mg tablet 2023 024 [facility], [address], [place], [id number], 4 17:38:03 prednisone 10 mg tablet 2023 024 [facility], [address] [place] [address], [id number], 4 13:59:54 methylpredn isolone sod succ (PF) 125 mg/2 mL solution for injection 2023 024 [facility], [address], [place], [id number], 4 11:53:19 doxycycline hyclate 100 mg capsule 2023 024 [facility], [address] [place] [address], [id number], 4 14:23:57 doxycycline hyclate 100 mg capsule 2023 024 [facility], [address] [place] [address], [id number], 4 11:53:19 ipratropium 0.5 mg-albutero l 3 mg (2.5 mg base)/3 mL nebulizatio n soln 2023 024 [facility], [address] [place] [address], [id number], 4 11:53:19 prednisone 10 mg tablet 2023 024 [facility], [address] [place] [address], [id number], 4 14:23:58 magnesium sulfate 2 gram/50 mL in 0.9 % sodium chloride IV piggyback 2023 [facility], [address] [place] [address], [id number], 4 11:53:19 Patient TargetsNo targets recorded. Patient InstructionsNo instructions recorded. Reason for Referral None Reported. Results Created Date Observation Date Name Description Value Unit Range Abnormal Flag Note LastModifiedBy Organization Detail LastModifiedTime 05/27/19 24 05/27/2023 gluco se, david harman k, blood Blood Glucose: mg/dl 302 Not Available [facility] [address] [place] [address], [id number], 05/27/2023 11:19:35 05/27/19 24 05/27/2023 rapid flu (A+B) Flu negati ve Not Available [facility] [address] [place] [address], [id number], 05/27/2023 10:53:07 05/27/19 24 05/27/2023 rapid strep group A, throa t Strep negati ve Not Available [facility] ed [address] [place] [address], [id number], 05/27/2023 11:12:09 05/27/19 24 05/27/2023 rapid SARS CoV 2 Ag, QL IA, respi rator y speci men rapid SARS CoV 2 Ag, QL IA, respiratory specimen negati ve Not Available [facility] ed [address] [place] [address], [id number], 05/27/2023 10:53:06 12/24/19 24 12/24/2023 rapid flu (A+B) Flu negati ve Not Available [facility] ed [address] [place] [address], [id number], 12/24/2023 11:22:03 12/24/19 24 12/24/2023 rapid SARS CoV 2 Ag, QL IA, respi rator y speci men rapid SARS CoV 2 Ag, QL IA, respiratory specimen negati ve Not Available [facility] ed [address] [place] [address], [id number], 12/24/2023 11:22:00 Result Notes None recorded. Medical Equipment None Reported. Allergies Allergen ID Allergen Name Allergen Category Reaction Reaction Severity Criticality Documentation Date Start Date Code Code System Note Provider Name and Address Organization Details Recorded Time 4632 azithromy josephine medicatio n Not available Not available Not available 05/27/2023 70688 RxNorm Soila Langston MD [address] [place] [address],[address], [place], [address], [employer] 12:02:49 4633 Product containin g angiotens in-conver ting enzyme inhibitor (product) medicatio n Not available Not available Not available 05/27/2023 25449 009 SNOMED Soila Langston MD [address] [place] [address],[address], [place], [address], [employer] 4 12:02:55 4634 metformin medicatio n Not available Not available Not available 05/27/2023 6809 RxNorm Soila Langston MD [address] [facility],[address], [place], [address], [employer], [employer] 4 12:03:02 4635 Dilaudid medicatio n Not available Not available Not available 05/27/2023 53636 3 RxNorm AMS Soila Langston MD [address], [place], [address], [employer], [employer] 4 12:03:32 6317 erythromy josephine medicatio n Not available Not available Not available 12/24/2023 4053 RxNorm BRANDT ROJO MD [address] [facility],[address], [place], [address], [employer] 4 11:27:47 6318 metoprolo l Not available Not available Not available Not available 12/24/2023 6918 RxNorm Not Available [facility] 4 03:48:18 Medications Name Sig Start Date Stop Date Status Note LastModified by Organization Details LastModified Time Prescriptio n - Change active Not Available Not Available N ot Available celecoxib 200 mg capsule TAKE 1 CAPSULE BY MOUTH TWICE DAILY WITH FOOD AND A FULL GLASS OF WATER NEEDED FOR PAIN active Not Available Not Available No t Available methocarbam ol 500 mg tablet TAKE 2 TABLETS BY MOUTH 2 OR 3 TIMES DAILY NEEDED FOR MUSCLE SPASMS active Not Available Not Available No t Available atorvastati n 80 mg tablet TAKE 1 TABLET BY MOUTH EVERY DAY AT BEDTIME active Not Available Not Available No t Available carvedilol 6.25 mg tablet TAKE 1 TABLET BY MOUTH TWICE DAILY WITH FOOD active Not Available Not Available No t Available prednisone 10 mg tablet TAKE 4 TABLETS EVERY DAY FOR 4 DAYS THEN 3 TABLETS EVERY DAY FOR 3 DAYS THEN 2 TABLETS FOR 3 DAYS THEN 1 TABLET FOR 3 DAYS active Not Available Not Available No t Available doxycycline hyclate 100 mg capsule TAKE 1 CAPSULE BY MOUTH TWICE DAILY FOR 7 DAYS active Not Available Not Available No t Available ipratropium 0.5 mg-albutero l 3 mg (2.5 mg base)/3 mL nebulizatio n soln INHALE 1 AMPULE USING A NEBULIZER FOUR TIMES DAILY active Not Available Not Available No t Available albuterol sulfate 2.5 mg/3 mL (0.083 %) solution for nebulizatio n Inhale 3 mL by nebulizat ion route. 2023 active Not Available Not Available Not Avai lable cetirizine 10 mg tablet TAKE 1 TABLET BY MOUTH EVERY DAY active Not Available Not Available No t Available Stool Softener 100 mg capsule TAKE 1 CAPSULE BY MOUTH EVERY DAY AT BEDTIME NEEDED active Not Available Not Available No t Available cefpodoxime 200 mg tablet TAKE 1 TABLET BY MOUTH EVERY TWELVE HOURS FOR 7 DAYS active Not Available Not Available No t Available fluconazole 150 mg tablet TAKE 1 TABLET BY MOUTH ONCE active Not Available Not Available No t Available senna 8.6 mg tablet TAKE 2 TABLETS BY MOUTH EVERY DAY active Not Available Not Available No t Available prednisone 20 mg tablet TAKE 2 TABLETS BY MOUTH EVERY DAY active Not Available Not Available No t Available prednisone 5 mg tablet TAKE 1 TABLET BY MOUTH EVERY DAY active Not Available Not Available No t Available ciprofloxac in 500 mg tablet TAKE 1 TABLET BY MOUTH TWICE DAILY FOR 5 DAYS 10/18 completed Not Available Not Available Not Available aspirin 81 mg tablet,marcelina yed release TAKE 1 TABLET BY MOUTH EVERY DAY active Not Available Not Available No t Available lidocaine-p rilocaine 2.5 %-2.5 % topical cream APPLY TOPICALLY TO THE AFFECTED AREA(S) OF CLEAN FEET ONCE. APPLY 15-30 MINUTES prior TO qutenza applicati on active Not Available Not Available No t Available ofloxacin 0.3 % ear drops APPLY 5 DROPS IN THE RIGHT EAR TWICE DAILY FOR 7 DAYS active Not Available Not Available No t Available methocarbam ol 750 mg tablet TAKE 1 TABLET BY MOUTH EVERY 8 HOURS NEEDED FOR MUSCLE SPASMS active Not Available Not Available No t Available tamsulosin 0.4 mg capsule TAKE 1 CAPSULE BY MOUTH ONCE DAILY AT BEDTIME FOR 14 DAYS active Not Available Not Available No t Available BARRX [employer] Ultra Test strips USE DIRECTED TO TEST BLOOD SUGAR THREE TIMES DAILY active Not Available Not Available No t Available benzonatate 100 mg capsule TAKE 1 CAPSULE BY MOUTH 3 TIMES A DAY NEEDED FOR COUGH active Not Available Not Available No t Available doxycycline monohydrate 100 mg capsule TAKE 1 CAPSULE BY MOUTH TWICE DAILY 10/18 completed Not Available Not Available Not Available levothyroxi ne 125 mcg tablet TAKE 1 TABLET BY MOUTH EVERY DAY BEFORE BREAKFAST active Not Available Not Available No t Available lidocaine 5 % topical patch APPLY 1 PATCH TOPICALLY TO SKIN, LEAVE ON FOR 12 HOURS AND OFF FOR 12 HOURS DIRECTED (TO THE most painful AREA) active Not Available Not Available No t Available nicotine 21 mg/24 hr daily transdermal patch APPLY 1 PATCH TOPICALLY TO THE SKIN IN THE MORNING DO NOT SMOKE WHILE USING PATCH active Not Available Not Available No t Available methimazole 5 mg tablet TAKE 2 TABLETS BY MOUTH EVERY DAY active Not Available Not Available No t Available gabapentin 300 mg capsule TAKE 1 CAPSULE BY MOUTH TWICE DAILY FOR 1 WEEK THEN INCREASE TO 1 CAPSULE THREE TIMES DAILY active Not Available Not Available No t Available omeprazole 20 mg capsule,del ayed release TAKE 1 CAPSULE BY MOUTH TWICE DAILY 30 MINUTES BEFORE MEALS active Not Available Not Available No t Available montelukast 10 mg tablet TAKE 1 TABLET BY MOUTH EVERY DAY IN THE EVENING active Not Available Not Available No t Available bisacodyl 5 mg tablet,marcelina yed release TAKE 2 TABLETS BY MOUTH AT NOON THE DAY BEFORE COLONOSCO PY active Not Available Not Available No t Available pyridoxine (vitamin B6) 100 mg tablet TAKE 1 TABLET BY MOUTH DAILY active Not Available Not Available No t Available ibuprofen 600 mg tablet TAKE 1 TABLET BY MOUTH EVERY 8 HOURS NEEDED FOR MILD PAIN FOR UP TO 7 DAYS active Not Available Not Available No t Available polyethylen e glycol 3350 17 gram/dose oral powder MIX AND DRINK BOTTLE DIRECTED BY [facility] t active Not Available Not Available No t Available oxycodone-a cetaminophe n 7.5 mg-325 mg tablet TAKE 1 TABLET BY MOUTH EVERY 6 HOURS NEEDED FOR SEVERE PAIN active Not Available Not Available No t Available levofloxaci n 750 mg tablet TAKE 1 TABLET BY MOUTH EVERY DAY IN THE MORNING FOR 5 DAYS 10/18 completed Not Available Not Available Not Available fluticasone propionate 50 mcg/actuati on nasal spray,suspe nsion INSTILL 2 SPRAYS IN EACH NOSTRIL ONCE DAILY active Not Available Not Available No t Available clotrimazol e 1 % topical cream APPLY TOPICALLY TO THE AFFECTED AREA(S) TWICE DAILY FOR 28 DAYS active Not Available Not Available No t Available doxycycline hyclate 100 mg tablet TAKE 1 TABLET BY MOUTH TWICE DAILY FOR 10 DAYS WITH AT LEAST 8 OUNCES WATER. Do not lie down for 30 minutes after taking. active Not Available Not Available No t Available calcitriol 0.25 mcg capsule TAKE 1 CAPSULE BY MOUTH EVERY DAY active Not Available Not Available No t Available levothyroxi ne 112 mcg tablet TAKE 1 TABLET BY MOUTH EVERY DAY active Not Available Not Available No t Available amoxicillin 875 mg-potassiu m clavulanate 125 mg tablet TAKE 1 TABLET BY MOUTH TWICE DAILY FOR 10 DAYS 10/18 completed Not Available Not Available Not Available Ventolin HFA 90 mcg/actuati on aerosol inhaler INHALE 2 PUFFS BY MOUTH EVERY 4 TO 6 HOURS NEEDED FOR WHEEZING active Not Available Not Available No t Available Novolog FlexPen U-100 Insulin aspart 100 unit/mL (3 mL) subcutaneou s INJECT 6 TO 10 UNITS SUBCUTANE OUSLY BEFORE MEALS AND SNACKS DIRECTED active Not Available Not Available No t Available Alcohol Prep Pads USE THREE TIMES DAILY active Not Available Not Available No t Available pregabalin 75 mg capsule TAKE 1 CAPSULE BY MOUTH TWICE DAILY active Not Available Not Available No t Available varenicline tartrate 0.5 mg (11)-1 mg (42) tablets in a dose pack TAKE DIRECTED ON PACKAGE active Not Available Not Available No t Available magnesium sulfate 2 gram/50 mL in 0.9 % sodium chloride IV piggyback Infuse 50 mL every day by intraveno us route. 2023 active Not Available Not Available Not Avai lable Lantus Solostar U-100 Insulin 100 unit/mL (3 mL) subcutaneou s pen INJECT 35 UNITS SUBCUTANE OUSLY TWICE DAILY IN THE MORNING AND IN THE EVENING active Not Available Not Available No t Available calcium 315 mg (as citrate)-vi tamin D3 6.25 mcg (250 unit) tablet TAKE 2 TABLETS BY MOUTH FOUR TIMES DAILY active Not Available Not Available No t Available methylpredn isolone sod succ (PF) 125 mg/2 mL solution for injection Take 125 mg every day by injection route. 2023 active Not Available Not Available Not Avai lable Mucus Relief ER 600 mg tablet, extended release TAKE 1 TABLET BY MOUTH TWICE DAILY DO NOT BREAK, CRUSH, DISSOLVE OR CHEW active Not Available Not Available No t Available Vitamin D3 50 mcg (2,000 unit) capsule TAKE 1 CAPSULE BY MOUTH ONCE DAILY active Not Available Not Available No t Available roflumilast 500 mcg tablet TAKE 1 TABLET BY MOUTH EVERY DAY active Not Available Not Available No t Available Combivent Respimat 20 mcg-100 mcg/actuati on solution for inhalation INHALE 1 PUFF 4 TIMES A DAY, MAY TAKE ADDITIONA L PUFFS NEEDED. (MAX OF 6 PUFFS PER DAY) active Not Available Not Available No t Available Jardiance 10 mg tablet TAKE 1 TABLET BY MOUTH ONCE DAILY active Not Available Not Available No t Available Trulicity 1.5 mg/0.5 mL subcutaneou s pen injector INJECT ONE PEN (=1.5MG) SUBCUTANE OUSLY ONCE A WEEK DIRECTED active Not Available Not Available No t Available Trulicity 0.75 mg/0.5 mL subcutaneou s pen injector INJECT ONE PEN (=0.75MG) SUBCUTANE OUSLY ONCE A WEEK DIRECTED active Not Available Not Available No t Available Pentips Pen Needle 32 gauge x 5/32 USE DIRECTED TO TEST BLOOD SUGAR FIVE TIMES DAILY active Not Available Not Available No t Available Trelegy Ellipta 100 mcg-62.5 mcg-25 mcg powder for inhalation INHALE 1 PUFF BY MOUTH EVERY DAY AT THE SAME TIME active Not Available Not Available No t Available OneTouch Ultra2 Meter USE DIRECTED TO TEST BLOOD SUGAR THREE TIMES DAILY active Not Available Not Available No t Available OneTouch Delica Plus Lancet 33 gauge CHECK BLOOD SUGAR THREE TIMES DAILY active Not Available Not Available No t Available Vitals Date Recorded Heart rate Body weight Respiratory rate Body temperature Body height Oxygen saturation Oxygen saturation in Arterial blood by Pulse oximetry Systolic blood pressure Diastolic blood pressure Provider Name and Address Organization Details Last Updated DateTime 4 84 /min 19085.8 g 20 /min 98.4 [degF] 152.4 cm 98 % 98 % 137 mm[Hg] 98 mm[Hg] Not Available [facility] [employer] 4 10:52:14 Date Recorded Oxygen saturation Oxygen saturation in Arterial blood by Pulse oximetry Heart rate Body temperature Respiratory rate Systolic blood pressure Diastolic blood pressure Provider Name and Address Organization Details Last Updated DateTime 4 93 % 93 % 92 /min 98 [degF] 20 /min 190 mm[Hg] 100 mm[Hg] Not Available [facility] [employer] 4 11:12:07 Date Recorded Oxygen saturation Oxygen saturation in Arterial blood by Pulse oximetry Body height Heart rate Respiratory rate Body weight Body temperature Systolic blood pressure Diastolic blood pressure Provider Name and Address Organization Details Last Updated DateTime 4 95 % 95 % 165.1 cm 85 /min 18 /min 98527.6 4 g 97.4 [degF] 125 mm[Hg] 86 mm[Hg] Not Available [facility] [employer] 4 11:27:44 Date Recorded Heart rate Body weight Respiratory rate Body temperature Body height Oxygen saturation Oxygen saturation in Arterial blood by Pulse oximetry Systolic blood pressure Diastolic blood pressure Provider Name and Address Organization Details Last Updated DateTime 4 96 /min 49004.6 4 g 18 /min 97.9 [degF] 165.1 cm 91 % 91 % 129 mm[Hg] 71 mm[Hg] Not Available [facility] [employer] 4 17:19:19 Date Recorded Oxygen saturation Oxygen saturation in Arterial blood by Pulse oximetry Heart rate Respiratory rate Body temperature Systolic blood pressure Diastolic blood pressure Provider Name and Address Organization Details Last Updated DateTime 4 88 % 88 % 80 /min 28 /min 97.9 [degF] 122 mm[Hg] 68 mm[Hg] Not Available [employer] [employer] 4 11:18:47 Social History None recorded. Functional Status None recorded. Mental Status None recorded. Family History Nothing Reported. Medical History No medical history recorded. Gynecological HistoryNo gynecological history recorded. 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 She verbalized understand ing.No clinical evidence of need for abx- afebrile/ no colored sputumPati ent somewhat improved after the albuterol neb Pat takes lantus 30 units 2 x per day and SS ac/hs- aware prednisone will increase already high BS - will adjust ss up/- usually increase lantus to 35 units bid( usual when on prednisone -advised her to do the same now.Advise d close follow-up with PCP and to call us for another visit if she feels she needs it. [id number] Zev Leger MD [address] [address] 07/26/2023 11:12:02 07/26/2023 17:20:43 Acute exacerbation of chronic obstructive pulmonary disease [id number] J44.1 This 62-year-ol d female with COPD [facility] of increased dyspnea. She uses several inhalers and prednisone 5 mg daily. She doesn't qualify for home oxygen. I ordered a prednisone taper. She will follow-up with her PCP. The patient agreed with this plan. Low back pain [id number] M54.50 [id number] Dasha Eubanks MD [address] [address] 08/31/2023 11:27:40 09/01/2023 12:35:19 Acute exacerbation of chronic obstructive pulmonary disease [id number] J44.1 [id number] Santos Santoyo MD [address] [address] 10/19/2023 17:19:16 10/20/2023 09:43:42 Acute exacerbation of chronic obstructive pulmonary disease [id number] J44.1 [id number] BRANDT ROJO MD [address] [address] 12/24/2023 11:18:42 12/24/2023 14:43:17 Acute exacerbation of chronic obstructive pulmonary disease [id number] J44.1 Evaluation in the field was performed by my criminal investigator colleague, as noted above, I provided real-time direction and supervisio n for this visit. The evaluation revealed a 62-year-ol d female with a history of COPD, not on oxygen supplement ation, and hypertensi on. She was in her usual state of good health until this morning when she woke up with a cough and dyspnea. The patient complains of increased wheezing, cough with clear sputum, and dyspnea on exertion , consistent with a prior COPD exacerbati on. She is on chronic daily prednisone 5 mg. Her last COPD flare was approximat yon 1 month ago, which required a prednisone taper. She has no known sick contacts. The patient has seasonal allergies, for which she takes Zyrtec, but believes her current symptoms are mostly weather-re lated. Denies lower extremity swelling. No recent surgery, immobiliza tion, long trip , cancer diagnosis . Vital signs showed tachypnea of 28 breaths per minute, SpO? 88% on room air, and the patient was afebrile.T he exam revealed bilateral diffuse rhonchi and wheezing. No QUEENIE. The patient refused to go to the ED initially After she received the 1st duoneb, IV Solumedrol , IV Magnesium and Doxycyclin e, a second Duoneb treatment was ordered . The patient ambulated to the bathroom in the middle of the treatment, and upon returning, her SpO? was 88% on room air, with her respirator y rate increasing to 30.After a lengthy discussion , the patient agreed to go to the ED for further evaluation . An expect [facility]. Rapid COVID and flu tests were negative.B MARILEE wilkins. H/H . Allergies were verified; however, the triage note incorrectl y referenced an allergy to Metoprolol , which is not present for this patient. Impression :Acute exacerbati on of chronic COPD Plan:-Solu medrol 125 mg IV was administer ed. A prescripti on for a tapering dose of prednisone was sent to her pharmacy.- Magnesium sulfate 2 grams IV was given.-Duo neb 3 mL x2 was administer ed. The patient was advised to continue home nebulizer treatments every 4 hours for the next 4-5 days.-Doxy cycline 100 mg BID for 7 days was started, with the first dose given by the criminal investigator. -Continue Zyrtec daily-Afte r she received the 1st duoneb, IV Solumedrol , IV Magnesium and Doxycyclin e, a second Duoneb treatment was ordered . The patient ambulated to the bathroom in the middle of the treatment, and upon returning, her SpO? was 88% on room air, with her respirator y rate increasing to 30.After a lengthy discussion , the patient agreed to go to the ED for further evaluation . An [facility]. Primary care, consider__ _ Dispositio n: ED for further eval given ongoing tachypnea and hypoxia despite treatment Health Concerns Section Related Observation LastModified by Organization Detai ls LastModified Time None Recorded Concern Status LastModified by Organization Details LastModified Time None Recorded Advance Directives Directive None Recorded Payers Encounter Date Sequence Insurance Name Policy Number Policy Mendez Covered Member ID Mendez Member ID Guarantor Name 05/27/2023 1 [employer] - DOS ON OR AFTER 2022 - DUAL ELIGIBLE - SHELTER OPTIONS AND ONE CARE (MEDICARE REPLACEMENT/ADV ANTAGE - HMO) Marita Lawrence [id number] Marita Lawrence 07/26/2023 1 [employer] - DOS ON OR AFTER 2022 - DUAL ELIGIBLE - SHELTER OPTIONS AND ONE CARE (MEDICARE REPLACEMENT/ADV ANTAGE - HMO) Marita Washingtonger [id number] Marita Lawrence 08/31/2023 1 [employer] - DOS ON OR AFTER 2022 - DUAL ELIGIBLE - SHELTER OPTIONS AND ONE CARE (MEDICARE REPLACEMENT/ADV ANTAGE - HMO) Marita Lawrence [id number] Marita Lawrence 10/19/2023 1 [employer] - DOS ON OR AFTER 2022 - DUAL ELIGIBLE - SHELTER OPTIONS AND ONE CARE (MEDICARE REPLACEMENT/ADV ANTAGE - HMO) Marita Washingtonger [id number] Marita Lawrence 12/24/2023 1 [employer] - DOS ON OR AFTER 2022 - DUAL ELIGIBLE - SHELTER OPTIONS AND ONE CARE (MEDICARE REPLACEMENT/ADV ANTAGE - HMO) Marita Washingtonger [id number] Marita Lawrence Notes Date Note Type Note Provider Name and Address Organization Details Recorded Time 05/27/2023 text/html HPI: Patient at home with known COPD. Not on oxygen at baseline. 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 O2 sat at baseline is 96% drops to 92% with exertion. .................. .................. .................. .................. .................. .................. .................. ............... CRC Nurse Triage Notes (Tashia Lazo): Comments: CRC RN DID NOT NEED FURTHER INFO .................. .................. .................. .................. .................. .................. .................. ............... Sock Examiner Note From Cullen Joseph: Pt caox3 answers door with a slow steady gait. Pt complains of difficulty breathing x 4 days. Pt has had COPD x10 years. Was on increased dose of prednisone x 6 weeks ago. Pt also complains of frequent productive cough, diffuse chest pain with coughing. Pt reports she gets weak walking to her car outside. Pt not on oxygen at home. 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 Pt states she has been using albuterol MDI x2 per day, duoneb x 5 per day. Pt denies n/v/d, head ache or any other pain or complaints. Pt pink warm and dry, positive full sentences, positive increased work of breathing, positive expiratory wheezes throughout. Abdomen soft non tender, negative edema. Throat appears raw and red, no white. Pt negative for covid, flu and strep via rapid POC. BGL 306mg/dl (no food or insulin today) [facility] orders albuterol neb, prednisone 40mg PO, administered as noted, and will call in Rx to pt's local pharmacy. Pt improves slightly after albuterol only neb. Red flags and pt education discussed. .................. .................. .................. .................. .................. .................. .................. ............... Disposition: Fulfilled SEGMD: Patient is normally on 5 mg of prednisone a day -she reports she does well with 40 mg bursts. She has a dry cough. She denies fever, chills, nausea, vomiting and diarrhea. She complains of some orthopnea and dyspnea on exertion especially. She has chronic sinus congestion and had runny nose yesterday. She felt more short of breath this morning so she did a DuoNeb just prior to medics arrival. She complains of chest pain only with coughing. She denies sore throat except when coughing Soila Langston MD [address] [place] [address],[address], [place], [phone], [employer] 05/27/2023 12:35:05 07/26/2023 text/html CRC Nurse Triage Notes (Miko Vogt): Chief Complaints: Shortness of Breath/Dyspnea PMH: Hypertension, COPD/Asthma, Diabetes, Heart Disease Allergies: Unknown Comments: Apron Trimmer verified the member's name//address and phone number. Mbr calling reporting SOB, reports home oxygen level is 91% on RA, does not have oxygen at home; mbr has hx of COPD/ Asthma. Mbr reports this happens to her every year during allergy season. Mbr encouraged to take home breathing treatment now as prescribed, reports had not taken one since before sleeping. Education provided on the response time and the member was advised to monitor reported s/s and seek emergency treatment if needed -HODA Whyte MD [address] [place] [address],[address], [place], [phone], NII - RIZWANATONO 07/30/2023 06:44:37 08/31/2023 text/html HPI: Call returned to Marita Esthela Lawrence to triage below. Reports having hx of COPD and allergies. Per pt having SpO2 at 92% on room air. Per pt is having wheezing. Nebulizer tx given 1 hour ago. Per pt is also using albuterol. Per pt having chest congestion. Per pt tested for COVID-19 3 days ago and negative. Per pt allergy sx onset 1 week ago. Pt using cetirizine and Flonase. Pt denies any CP. Having intermittent wheezing even with nebulizer use. Pt alert, speaking in clear full sentences. 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 [facility] of [facility] Reviewed home care advise, ER precautions and reasons to call back. Verified contact information and allergies. .................. .................. .................. .................. .................. .................. .................. ............... CRC Nurse Triage Notes (Tashia Lazo): Comments: CRC RN DID NEED FURTHER INFO .................. .................. .................. .................. .................. .................. .................. ............... Sock Examiner Note From Ben Delacruz: [facility] visit for female patient with difficulty breathing. patient presents conscious and alert sitting in recliner in living room. patient reports on set of breathing difficulty a few days ago and low oxygen saturations a few days ago consistent with previous COPD exacerbations. Vital Signs taken as listed. patient afebrile on assessment. lung sounds still had faint expiratory wheezes. Patient received prednisone taper 6 weeks ago for same issue with good results. Productive cough with thick white mucus. consulted with [facility] Dr Eubanks, who prescribed 40 mg of Prednisone to be given on scene with remainder of prescription called the patient's Pharmacy. Reviewed red flags for ED. patient education provided. [facility] Medication Orders: prednisone 20 mg tablet: Administered .................. .................. .................. .................. .................. .................. .................. ............... Disposition: Fulfilled Dasha Eubanks MD [address] [place] [address],[address], [place], [phone], [employer] 08/31/2023 17:40:50 10/19/2023 text/html [facility] Nurse Triage Notes (Miko Vogt): Reason For Request: sob/hx COPD Chief Complaints: Shortness of Breath/Dyspnea PMH: Hypertension, COPD/Asthma, Diabetes, Heart Disease Allergies: Metoprolol Comments: Apron Trimmer verified the member's name//address and phone number. Mbr calling reporting oxygen level upon awaking today was 94%, this evening oxygen level 91%. Mbr reports hx of COPD, denies wearing oxygen at home. Mbr reports SOB, denies chest pain. Mbr speaking in full, complete sentences at time of call. Education provided on the response time and the member was advised to monitor reported s/s and seek emergency treatment if needed -Kiran Vogt RN Sock Examiner POC Test Results from Ben Delacruz - ALS Rapid influenza antigen (19:05:46) Flu: - Rapid COVID antigen (19:05:52) COVID: - .................. .................. .................. .................. .................. .................. .................. ............... Sock Examiner Note From Ben Delacruz: [facility] visit for female pt. Pt complains of SOB x 2 days. Pt had noticed SpO2 in low 90's with ambulation today and seems affected by the heat and humidity as patient started to feel better once inside with conditioned air. V/S taken as listed with Sp02 91%. Pt afebrile. Pt speaking full sentences. Some expiratory wheezes noted. Pt reports COPD flare up 1 month ago requiring prednisone and antibiotics. Pt still smoking and producing clear sputum at this time. Flu and covid swabs run and both negative. Consulted with [facility] Dr. Santoyo who prescribed prednisone and cefpedoxime. First dose of prednisone given on scene with remainder of script sent to pharmacy. Reviewed red flags. Pt education provided. .................. .................. .................. .................. .................. .................. .................. ............... Disposition: Fulfilled Santos Santoyo MD [address] [facility],[address], [place], [address], NII - TONO WAGONER 10/19/2023 23:50:40 12/24/2023 text/html CRC Nurse Triage Notes (Miko Vogt): Reason For Request: Pt reporting COPD exacerbation Chief Complaints: Shortness of Breath/Dyspnea, COPD PMH: Hypertension, COPD/Asthma, Diabetes, Heart Disease Allergies: Metoprolol Comments: Apron Trimmer verified the member's name//address and phone number. Mbr's calling reporting COPD exacerbation. Mbr reports she started with symptoms around 0400. Mbr reports oxygen level 90% & states she has taken all breathing treatments as prescribed. Mbr able to speak in full, complete sentences at time of call. Education provided on the response time and the member was advised to monitor reported s/s and seek emergency treatment if needed -Kiran Vogt RN Sock Examiner Organization Information for [facility] Business Legal Name: [employer]? Address: [address] [place] [address], Area Manager: Bk Roblero MD CLIA No.: [id number] Sock Examiner POC Test Results from [facility] iSTAT Chem8+ (11:42:11) Na: 143 mEq/L K: 3.8 mEq/L Cl: 109 mEq/L iCa: 1.07 mmol/L TCO2: 22 mmol/L Glu: 165 mg/dL BUN: 16 mg/dL Crea: 0.8 mg/dL Hct: 49 % Hb: 16.7 g/dL A Attachments uploaded as part of this test result can be found under Documents section. Rapid COVID antigen (11:42:13) COVID: - Attachments uploaded as part of this test result can be found under Documents section. Rapid influenza antigen (11:42:14) Flu: - Attachments uploaded as part of this test result can be found under Documents section. .................. .................. .................. .................. .................. .................. .................. ............... Sock Examiner Note From Kal [facility]athaway: Dispatched to above address for shortness of breath. On arrival patient 62 y/o F, found sitting in chair, AOX4, airway patent, tachypneic, good color, in moderate distress, accessory muscle use. Patient reports she woke up around 0400 today feeling very short of breath, has been using home MDI and nebulizer TX since without relief, last neb about 10 minutes ago. Patients vital signs checked. Secondary assessment, pupils PERRL, airway patent, no JVD, trachea midline, slight tracheal tugging, equal chest rise and fall, lung sounds diminished on L side expiratory wheezing in all chandler, abdomen soft non tender, belly breathing, no signs of trauma, skin pink warm and dry, good radial pulse. [facility] contacted, ordered Chem 8, IV, Solumedrol, Covid and Flu test and Duoneb. 18g IV established, R AC, lab draw preformed, ISTAT checked, results uploaded. Covid-19 and Flu test checked, both negative. Patient started on Duoneb. 125mg Solumedrol administered IV. Patient reassessed, SPO2 still high 80s on RA, still tachypneic. [facility] updated, ordered 2g Mag IV. Patient administered 2g Mag IV. Patient reassessed with no change. [facility] updated, ordered additional Duoneb. Neb administered. Patient walked about 15 steps to bathroom, became tachypneic in the 30s. [facility] updated, recommends transport to ER for further evaluation. Patient agrees with this. 911 contacted. [facility] responded. Verbal report given to [facility] Sock Examiner, took over patient care. Patient being transported to [facility]. SC8 clear. EOR. .................. .................. .................. .................. .................. .................. .................. ............... Disposition: Reina ROJO MD [address] [place] [address],[address], [place], [phone], NII TONO WAGONER 12/24/2023 13:27:13 OBGyn Episode No OBEpisode recorded.
--- OUTSIDE RECORDS SUMMARY | 2024-04-21 14:52 | XMS_ITS | Encounter Summary ---
Author Organization [employer] Address [address] [place] [address] [address] [place] [address] Care Team Providers Care Financial Specialist Name Role Phone Name, Bobby GRADY Primary Care Provider [phone] Inga Magaña PharmD Unavailable Reason for Visit * Reason Comments Med Refill Encounter Details Date Type Department Care Team (Late st Contact Info) Description 05/15/2022 Refill [facility] [address] [place] [address] Name, MD Bobby [address] [place] [address] Seasonal allergic rhinitis, unspecified trigger (Primary Dx) Social History Tobacco Use Types Packs/Day Years [...] suspected to have Coronavirus/COVID-19? No / Unsure 05/12/2022 9:20 AM EST documented as of this encounter Plan of Treatment Upcoming Encounters Date Type Department Care Team (Late st Contact Info) Description 04/27/2024 10:30 AM EST Office Visit [address] [address] Zulma Kitchen CNP [address] [place] [address] 05/04/2024 9:00 AM EST Office Visit [address] [address] Name, MD Bobby [address] [place] [address] 06/17/2024 10:00 AM EDT Telemedicine [address] [address] Skye Melton, HODA documented as of this encounter Visit Diagnoses Diagnosis Seasonal allergic rhinitis, unspecified trigger- Primary documented in this encounter Additional Health Concerns Assessment Noted Time PHQ-9 Depression Total Score: 0 03/11/20 22 11:47 AM EST documented as of this encounter Care Teams Financial Specialist Relationship Specialty Start Date End Date NameBobby MD [address] [place] [address] PCP - General Family Medicine 06/01/15 Inga Magaña, Lucio [address] [place] [address] Pharmacist Internal Medicine 01/07/23 09/29/23 documented as of this encounter
--- OUTSIDE RECORDS SUMMARY | 2024-04-21 14:52 | XMS_ITS | Encounter Summary ---
Author Organization [employer] Address [address] [place] [address] [address] [place] [address] Care Team Providers Care Crankshaft Balancer Name Role Phone Name, Bobby GRADY Primary Care Provider [phone] Inga Magaña PharmD Unavailable Encounter Details Date Type Department Care Team (Late st Contact Info) Description 09/01/[address] [facility] [address] [place] [address] Name, MD Bobby [address] [place] [address] Social History Tobacco Use Types Packs/Day Years [...] 04/27/2024 10:30 AM EST Office [address] [facility] [address] [place] [phone] Zulma Kitchen CNP [address] [place], [place] [phone] 05/04/2024 9:00 AM EST Office [facility] [address] [place] [address] Name, MD Bobby [address] [place] [address] 06/17/2024 10:00 AM EDT Telemedicine [address] [address] Skye Melton, HODA documented as of this encounter Visit Diagnoses Not on filedocumented in this encounter Additional Health Concerns Assessment Noted Time PHQ-9 Depression Total Score: 0 03/11/20 22 11:47 AM EST documented as of this encounter Care Teams Crankshaft Balancer Relationship Specialty Start Date End Date Name, MD Bobby [address] [place] [address] PCP - General Family Medicine 06/01/15 Inga Magaña PharmD [address] [place] [address] Pharmacist Internal Medicine 01/07/23 09/29/23 documented as of this encounter
--- OUTSIDE RECORDS SUMMARY | 2024-04-21 14:52 | XMS_ITS | Encounter Summary ---
Author Organization [employer] Address [address] [place] [address] 7 [place] [address] Care Team Providers Care Jewelry Enameler Name Role Phone Bobby David MD Primary Care Provider [phone] Inga Magaña PharmD Unavailable Reason for Visit * Reason Onset Date Comments Referral 04/23/2022 Encounter Details Date Type Department Care Team (Late st Contact Info) Description 04/23/[address] [facility] [address] [place] [address] Name, MD Bobby [address] [place] [address] Referral Social History Tobacco Use Types Packs/Day [...] encounter Miscellaneous Notes * Telephone Encounter - Bobby David MD - 04/23/2022 1:49 PM EST done * Telephone Encounter - Dasia Sherwood RN - 04/23/2022 1:37 PM EST T/c to pt in regards to message below. Pt wants referral to see Gastroenterology in [facility], as pt has hx of colon cancer and has been waiting 10 years for colonoscopy. Pt stated June at [facility] has an apptset up for pt on May 13 and needs referral placed before then. Pt verbalized understanding and denied having any further questions or concerns at this time. * Telephone Encounter - Octavio Babinos - 04/23/2022 11:46 AM EST Tc from pt requesting an referral to see an gastroenterology at [facility] Please contact pt at [phone] documented in this encounter Plan of Treatment Upcoming Encounters Date Type Department Care Team (Late st Contact Info) Description 04/27/2024 10:30 AM EST Office Visit [address] [address] Zulma Kitchen CNP [address] [place] [address] 05/04/2024 9:00 AM EST Office Visit [address] [address] Bobby David MD [address] [place] [address] 06/17/2024 10:00 AM EDT Telemedicine [address] [address] Skye Melton RN documented as of this encounter Visit Diagnoses Diagnosis History of colon polyps- Primary Family history of colon cancer Family history of malignant neoplasm of gastrointestinal tract documented in this encounter Additional Health Concerns Assessment Noted Time PHQ-9 Depression Total Score: 0 03/11/20 22 11:47 AM EST documented as of this encounter Care Teams Jewelry Enameler Relationship Specialty Start Date End Date NameBobby MD [address] [place] [address] PCP - General Family Medicine 06/01/15 Inga Magaña PharmD [address] [place] [address] Pharmacist Internal Medicine 01/07/23 09/29/23 documented as of this encounter
--- OUTSIDE RECORDS SUMMARY | 2024-04-21 14:52 | XMS_ITS | Encounter Summary ---
Author Organization [employer] Address [address] [place] [address] [address] [place] [address] Care Team Providers Care Twine Reeling Machine Operator Name Role Phone Name, Bobby GRADY Primary Care Provider [phone] Inga Magaña PharmD Unavailable Reason for Referral * Imaging (Routine) - Closed Specialty Diagnoses / Procedures Referred By Contac t Referred To Contact Diagnoses Other ovarian cyst, right side Procedures US Pelvis Transvaginal Monisha Linton CNM [address] [place] [address] Phone: tel: fax: [facility] MRI and [facility] Scan [address] [place], [place] Phone: tel: fax: Referral ID Status Reason Start Date Expiration Date Visits Re quested Visits Authorized [id number] Closed 04/01/2022 09/28/2022 1 1 Encounter Details Date Type Department Care Team (Late st Contact Info) Description 04/01/2022 Orders Only [facility] [address] [place] [address] Monisha Linton CNM [address] [place] [address] Other ovarian cyst, right side (Primary Dx) Social History Tobacco Use Types [...] Upcoming Encounters Date Type Department Care Team ([facility] st Contact Info) Description 04/27/2024 10:30 AM EST Office Visit [address] [address] Zulma Kitchen CNP [address] [place] [address] 05/04/2024 9:00 AM EST Office Visit [address] [address] Name, MD Bobby [address] [place] [address] 06/17/2024 10:00 AM EDT Telemedicine [address] [address] Skye Melton, HODA Scheduled Orders Name Type Priority Associated Diagnoses Orde r Schedule US Pelvis Transvaginal Imaging Routine Other ovarian cyst, right side Expected: 04/01/2022, Expires: 04/01/2023 documented as of this encounter Visit Diagnoses Diagnosis Other ovarian cyst, right side- Primary documented in this encounter Additional Health Concerns Assessment Noted Time PHQ-9 Depression Total Score: 0 03/11/20 22 11:47 AM EST documented as of this encounter Care Teams Twine Reeling Machine Operator Relationship Specialty Start Date End Date Name, MD Bobby [address] [place] [address] PCP - General Family Medicine 06/01/15 Inga Magaña, Lucio [address] [place] [phone] Pharmacist Internal Medicine 01/07/23 09/29/23 documented as of this encounter
[2024-04-21 14:57] LABS: Adenovirus PCR Not Detected (Not Detect.); Bordetella parapertussis PCR Not Detected (Not Detect.); Bordetella pertussis PCR Not Detected (Not Detect.); Chlamydia pneumoniae PCR Not Detected (Not Detect.); Coronavirus 229E PCR Not Detected (Not Detect.); Coronavirus HKU1 PCR Not Detected (Not Detect.); Coronavirus NL63 PCR Not Detected (Not Detect.); Coronavirus OC43 PCR Not Detected (Not Detect.); Human metapneumovirus PCR Not Detected (Not Detect.); Influenza A PCR Not Detected (Not Detect.); Influenza B PCR Not Detected (Not Detect.); Mycoplasma pneumoniae PCR Not Detected (Not Detect.); Parainfluenza 1 PCR Not Detected (Not Detect.); Parainfluenza 2 PCR Not Detected (Not Detect.); Parainfluenza 3 PCR Not Detected (Not Detect.); Parainfluenza 4 PCR Not Detected (Not Detect.); RSV PCR Detected (Not Detect.); Rhino/Enterovirus PCR Not Detected (Not Detect.)
[2024-04-21 15:05] LABS: SARS-CoV-2 PCR Not Detected (Not Detect.)
--- NOTE | 2024-04-21 15:06 | MHC.EDTECH ---
pt given bedside commode, transferred via supervision, tolerated well
[2024-04-21] MEDS: methylPREDNISolone Sod Succ 40 MG/ML VIAL IVPUSH (16:21)
--- NOTE | 2024-04-21 16:32 | PHA.MEDREC ---
Addendum entered by Sherly Chavez RPh 04/21/24 17:12: [facility] reviewed Original Note: Pharmacy Consult ? Medication Reconciliation Pharmacy has completed the medication reconciliation. Spoke to patient to confirm med list. Patient states she was just discharged from [facility] on 04/19/24 and nothing has changes with her medication except she now takes Trulicity 1.5 mg on thu, last dose was yesterday and Dupixent 300 mg pen was yesterday. Patient states she is on day 2 of Prednisone 10 mg taper ( 40 mg daily X3 days, 30 mg x3 days, 20 mg x3 days, 10 mg x 3 days) Patient confirmed Novolog is 6-10 units per sliding scale and Lantus is 35 units BID. Utilized discharge packet and claim to confirm med list.
--- NOTE | 2024-04-21 17:06 | PC.NURSE ---
re:apap Pt complains of 7 pain pt only has apap prdered at this time. APAP given, DEBORAH Jhaveri notified for additional analgesia orders as pt sts she takes percocet at home
[2024-04-21] MEDS: Albuterol/Iprat 2.5/0.5MG 3 ML AMPUL.NEB INHALE ×3 (17:16→22:20)
--- NOTE | 2024-04-21 17:21 | PC.NURSE ---
pt called nurse to room. requesting pain medication for 7/10 back and rib pain. DEBORAH Jhaveri notified, APAP ordered. this nurse attempted to provide analgesia. Pt told nurse I take tylenol with my percocet. i need to go upstairs where they will actually take care of me verified with pharmacy that med rec has been completed. DEBORAH Jhaveri to queue orders
[2024-04-21] MEDS: Acetaminophen 325 MG TABLET 650 MG PO (17:45)
[2024-04-21] MEDS: oxyCODONE HCl Immed Release 5 MG TABLET 7.5 MG PO (17:45)
[2024-04-21] MEDS: Enoxaparin Sodium 40 MG/0.4 ML SYRINGE SUBCUT (17:45)
[2024-04-21 18:21] LABS: Glucose, Whole Blood 305 mg/dL (60-115)
[2024-04-21] MEDS: Insulin Lispro 100 UNIT/ML 3 ML VIAL SUBCUT ×2 (18:46→22:18)
--- NOTE | 2024-04-21 20:19 | MHC.EDTECH ---
This pct assumed care of Patient at 1900 ,vitals taken ,HODA roberts is aware of Patient low o2 sat of 91 % .
[2024-04-21 21:23] LABS: Glucose, Whole Blood 293 mg/dL (60-115)
[2024-04-21] MEDS: Sennosides 8.6 MG TABLET PO (22:16)
[2024-04-21] MEDS: Montelukast Sodium 10 MG TABLET PO (22:16)
[2024-04-21] MEDS: Aspirin Enteric Coated 81 MG TABLET.DR PO (22:16)
[2024-04-21] MEDS: carvediloL 6.25 MG TABLET PO (22:17)
[2024-04-21] MEDS: Atorvastatin Calcium 80 MG TABLET PO (22:17)
[2024-04-21] MEDS: Docusate Sodium 100 MG CAPSULE PO (22:18)
[2024-04-21] MEDS: guaiFENesin DM 200/20/10 ML 10 ML SYRUP PO (22:18)
[2024-04-21] MEDS: Pregabalin 100 MG CAPSULE PO (22:18)
[2024-04-21] MEDS: 0.9 % Sodium Chloride Flush 3 ML SYRINGE IVFLUSH (22:25)
[2024-04-22] VITALS (7 sets, daily range): BP systolic 127–168; BP diastolic 67–79; PULSE 80–90; RESP 18–20; TEMP 36.2–36.3; O2SAT 90–97
[2024-04-22] MEDS: oxyCODONE HCl Immed Release 5 MG TABLET 7.5 MG PO ×4 (00:32→22:00)
[2024-04-22] MEDS: methylPREDNISolone Sod Succ 40 MG/ML VIAL IVPUSH ×2 (03:12→16:03)
[2024-04-22] MEDS: Levothyroxine Sodium 112 MCG TABLET PO (05:40)
[2024-04-22] MEDS: Omeprazole 20 MG CAPSULE.DR PO ×2 (06:03→16:02)
[2024-04-22 06:58] LABS: Anion Gap 17 (12-20); Blood Urea Nitrogen 30 mg/dL (9-16); Calcium 8.7 mg/dL (8.4-10.2); Carbon Dioxide 27 mmol/L (22-29); Chloride 103 mmol/L (96-108); Estimated Glomerular Filt Rate > 60; Glucose Random 239 mg/dL (60-115); Potassium 4.1 mmol/L (3.3-5.1); Sodium 143 mmol/L (135-145)
[2024-04-22] MEDS: guaiFENesin DM 200/20/10 ML 10 ML SYRUP PO (07:14)
[2024-04-22] MEDS: Empagliflozin 10 MG TABLET PO (07:15)
[2024-04-22] MEDS: Sennosides 8.6 MG TABLET PO ×2 (07:15→22:02)
[2024-04-22] MEDS: Nicotine 21 MG PATCH.TD24 TRANSDERMA (07:15)
[2024-04-22] MEDS: 0.9 % Sodium Chloride Flush 3 ML SYRINGE IVFLUSH ×2 (07:16→16:06)
[2024-04-22] MEDS: allopurinoL 100 MG TABLET PO (07:16)
[2024-04-22] MEDS: Pregabalin 100 MG CAPSULE PO ×3 (07:16→22:02)
[2024-04-22] MEDS: carvediloL 6.25 MG TABLET PO ×2 (07:16→22:02)
[2024-04-22] MEDS: Roflumilast 500 MCG TABLET PO (07:16)
[2024-04-22] MEDS: Albuterol/Iprat 2.5/0.5MG 3 ML AMPUL.NEB INHALE ×4 (07:26→19:59)
[2024-04-22 07:51] LABS: Glucose, Whole Blood 290 mg/dL (60-115)
[2024-04-22] MEDS: Insulin Lispro 100 UNIT/ML 3 ML VIAL SUBCUT ×4 (08:05→22:01)
--- NOTE | 2024-04-22 09:28 | MHC.CM.PN ---
IMM DELIVERED CM MET WITH PT AT BEDSIDE. PT IS WEEPY AND STATES SHE IS TIRED AND NOT WELL . PT LIVES WITH SPOUSE AND IS ACTIVE WITH [facility] FOR SN. PT STATES SHE HAS [facility] FOR P.T. AND USES A WALKER PRN/ PT ALSO HAS 02 AT 2L CONTINUOUS VIA [facility]. +HCP ON FILE. PCP DR. HARMON AT [facility]. DP: PT WOULD LIKE TO GO TO PULMONARY REHAB ON [place]. P.T. EVAL WILL BE NEEDED TO DETERMINE NEEDS. PT WOULD ALSO LIKE A REFERRAL TO [facility] TO PURSUE [employer] HELP. PT HAS A RIDE HOME ON [place]. CM WILL CONTINUE TO FOLLOW FOR ANY CHANGE TO DC PLAN/NEEDS.
[2024-04-22 11:37] LABS: Glucose, Whole Blood 300 mg/dL (60-115)
--- NOTE | 2024-04-22 13:37 | HO.PM.IMPN ---
Subjective Subjective Date of Service: 04/22/24 Interval History: copd execerbation Review of Systems sob seems somewhat improving but seems sob with minimun exceresion has dry cough Physical Exam Vital Signs: Vital Signs: Last Vital Signs Temp 97.3 F 04/22/24 07:42 Pulse 90 04/22/24 12:10 Resp 18 04/22/24 12:10 BP 127/67 04/22/24 07:42 Pulse Ox 91 L 04/22/24 07:42 O2 Del Method Nasal Cannula 04/22/24 07:42 O2 Flow Rate 3.0 04/22/24 07:42 BMI result Body Mass Index 28.2 General: AOx3 Resp: air entry somewhat diminshed ,has b/l wheezing CVS: S1, S2, RRR GI: +BS, NT, no distention Skin: Warm, dry Neuro: Cranial nerves II-XII grossly intact bilaterally. Motor grossly intact bilaterally Extremities: No edema Objective Data Active Medications Acetaminophen (Acetaminophen 325 Mg Tablet) 650 mg PO Q6H PRN PRN Reason: Pain, Mild 1-3,fever,headache Last Admin: 04/21/24 17:45 Dose: 650 mg Documented By: RENEA Albuterol/Ipratropium (Albuterol/Iprat 2.5/0.5mg 3 Ml Ampul.Neb) 3 ml INHALE RQ4H WHILE AWAKE [facility] Last Admin: 04/22/24 12:10 Dose: 3 ml Documented By: ALEX Albuterol/Ipratropium (Albuterol/Iprat 2.5/0.5mg 3 Ml Ampul.Neb) 3 ml INHALE RQ4H WHILE AWAKE PRN PRN Reason: Shortness of Breath/Wheezing Last Admin: 04/21/24 22:20 Dose: 3 ml Documented By: STEPHANIE Allopurinol (Allopurinol 100 Mg Tablet) 100 mg PO DAILY [facility] Last Admin: 04/22/24 07:16 Dose: 100 mg Documented By: VI Aspirin (Aspirin Enteric Coated 81 Mg Tablet.) 81 mg PO BEDTIME [facility] Last Admin: 04/21/24 22:16 Dose: 81 mg Documented By: STEPHANIE Atorvastatin Calcium (Atorvastatin Calcium 80 Mg Tablet) 80 mg PO BEDTIME [facility]; Protocol Last Admin: 04/21/24 22:17 Dose: 80 mg Documented By: STEPHANIE Calcium Carbonate (Calcium Carbonate 750 Mg Tab.Chew) 750 mg PO Q4H PRN PRN Reason: Heartburn Carvedilol (Carvedilol 6.25 Mg Tablet) 6.25 mg PO BID [facility]; Protocol Last Admin: 04/22/24 07:16 Dose: 6.25 mg Documented By: VI Docusate Sodium (Docusate Sodium 100 Mg Capsule) 100 mg PO BEDTIME [facility] Last Admin: 04/21/24 22:18 Dose: 100 mg Documented By: STEPHANIE Empagliflozin (Empagliflozin 10 Mg Tablet) 10 mg PO DAILY [facility] Last Admin: 04/22/24 07:15 Dose: 10 mg Documented By: VI Enoxaparin Sodium (Enoxaparin Sodium 40 Mg/0.4 Ml Syringe) 40 mg SUBCUT Q24H [facility] Last Admin: 04/21/24 17:45 Dose: 40 mg Documented By: RENEA Fluticasone Propionate (Fluticasone Propionate Nasal 16 Gm [place]) 1 spray NOSTRIL-B DAILY PRN PRN Reason: Congestion Fluticasone/Umeclidinium/Vilanterol (Fluticasone/Umeclidinium/Vilanterol 100/62.5/25 Blst.W.Dev) 1 puff INHALE RDAILY [facility] Last Admin: 04/22/24 11:16 Dose: Not Given Documented By: ALEX Non-Admin Reason: Med Not Available Glucose (Glucose Gel 15 Gm Gel..Gram.) 15 gm PO Q15M PRN; Protocol PRN Reason: per Hypoglycemia Standing Ord. Guaifenesin/Dextromethorphan (Guaifenesin Dm 200/20/10 Ml 10 Ml Syrup) 10 ml PO Q4H PRN PRN Reason: Cough Last Admin: 04/22/24 07:14 Dose: 10 ml Documented By: VI Dextrose (D10) 250 mls @ 750 mls/hr IV Q15M PRN; Protocol PRN Reason: per Hypoglycemia Standing Ord. Insulin Human Lispro (Insulin Lispro 100 Unit/Ml 3 Ml Vial) 0 unit SUBCUT QIDACHS [facility]; Protocol Last Admin: 04/22/24 11:49 Dose: 8 unit Documented By: VI Levothyroxine Sodium (Levothyroxine Sodium 112 Mcg Tablet) 112 mcg PO DAILY@0600 [facility] Last Admin: 04/22/24 05:40 Dose: 112 mcg Documented By: STEPHANIE Loratadine (Loratadine 10 Mg Tablet) 10 mg PO DAILY PRN PRN Reason: allergies Magnesium Hydroxide (Milk Of Magnesia 30 Ml Oral.Susp) 30 ml PO DAILY PRN PRN Reason: Constipation Melatonin (Melatonin 3 Mg Tablet) 6 mg PO BEDTIME PRN PRN Reason: Insomnia Methocarbamol (Methocarbamol 750 Mg Tablet) 750 mg PO Q8H PRN PRN Reason: neuropathy Methylprednisolone Sodium Succinate (Methylprednisolone Sod Succ 40 Mg/Ml Vial) 40 mg IVPUSH Q12H [facility] Last Admin: 04/22/24 03:12 Dose: 40 mg Documented By: STEPHANIE Montelukast Sodium (Montelukast Sodium 10 Mg Tablet) 10 mg PO BEDTIME [facility] Last Admin: 04/21/24 22:16 Dose: 10 mg Documented By: STEPHANIE Naloxone HCl (Naloxone Hcl Nasal 4 Mg [place]) 4 mg NOSTRILALT ONCE PRN PRN Reason: Opioid Overdose Nicotine (Nicotine 21 Mg Patch.Td24) 21 mg TRANSDERMA DAILY [facility] Last Admin: 04/22/24 07:48 Dose: Not Given Documented By: VI Non-Admin Reason: Previously Administered Omeprazole (Omeprazole 20 Mg Capsule.) 20 mg PO BID@0630,1630 [facility] Last Admin: 04/22/24 06:03 Dose: 20 mg Documented By: STEPHANIE Ondansetron HCl (Ondansetron Hcl 4 Mg/2 Ml Vial) 4 mg IVPUSH Q8H PRN PRN Reason: Nausea and Vomiting Oxycodone HCl (Oxycodone Hcl Immed Release 5 Mg Tablet) 7.5 mg PO Q6H PRN PRN Reason: Pain, Severe (Pain Scale 7-10) Last Admin: 04/22/24 07:14 Dose: 7.5 mg Documented By: VI Pregabalin (Pregabalin 100 Mg Capsule) 100 mg PO TID [facility] Last Admin: 04/22/24 07:16 Dose: 100 mg Documented By: VI Roflumilast (Roflumilast 500 Mcg Tablet) 500 mcg PO DAILY [facility] Last Admin: 04/22/24 07:16 Dose: 500 mcg Documented By: VI Senna (Sennosides 8.6 Mg Tablet) 8.6 mg PO BID [facility] Last Admin: 04/22/24 07:15 Dose: 8.6 mg Documented By: VI Sodium Chloride (0.9 % Sodium Chloride Flush 3 Ml Syringe) 3 ml IVFLUSH QSHIFT [facility] Last Admin: 04/22/24 07:16 Dose: 3 ml Documented By: VI Labs 04/21/24 12:50 04/22/24 05:30 Labs: Laboratory Results - last 24 hr 04/21/24 04/21/24 04/21/24 12:50 18:16 21:19 Anion Gap Estim Creat Clear Calc Estimated GFR POC Glucose 305 H 293 H Random Glucose Calcium Respiratory Panel [facility] See Note Adenovirus (Rapid PCR) Not Detected B.pert (TEM-PCR) Not Detected B.parapertussis DNA PCR Not Detected C. pneumoniae DNA (PCR) Not Detected Coronavirus OC43 (PCR) Not Detected Coronavirus HKU1 (PCR) Not Detected Coronavirus 229E (PCR) Not Detected Coronavirus NL63 (PCR) Not Detected Human Metapneumovir PCR Not Detected Influenza A (RT-PCR) Not Detected Influenza B (RT-PCR) Not Detected M. pneumoniae (PCR) Not Detected Parainfluenza 1 (PCR) Not Detected Parainfluenza 2 (PCR) Not Detected Parainfluenza 3 (PCR) Not Detected Parainfluenza 4 (PCR) Not Detected RSV (PCR) Detected A Entero/Rhino (PCR) Not Detected SARS-CoV-2 RNA (RT-PCR) Not Detected 04/22/24 04/22/24 04/22/24 05:30 07:47 11:32 Anion Gap 17 Estim Creat Clear Calc 82.0 Estimated GFR > 60 POC Glucose 290 H 300 H Random Glucose 239 H Calcium 8.7 Respiratory Panel [facility] Adenovirus (Rapid PCR) B.pert (TEM-PCR) B.parapertussis DNA PCR C. pneumoniae DNA (PCR) Coronavirus OC43 (PCR) Coronavirus HKU1 (PCR) Coronavirus 229E (PCR) Coronavirus NL63 (PCR) Human Metapneumovir PCR Influenza A (RT-PCR) Influenza B (RT-PCR) M. pneumoniae (PCR) Parainfluenza 1 (PCR) Parainfluenza 2 (PCR) Parainfluenza 3 (PCR) Parainfluenza 4 (PCR) RSV (PCR) Entero/Rhino (PCR) SARS-CoV-2 RNA (RT-PCR) Assessment and Plan (1) Hypoxia: Status: Acute (2) COPD exacerbation: Status: Acute Plan 63-year-old female with a PMH significant for?CAD, insulin-dependent type 2 diabetes, COPD recently started on 2L home O2, HTN, hypothyroidism, GERD, and gout who presents to the ED with?increased SOB productive and difficulty breathing. Pt will be admitted to the hospital for treatment and further evaluation of acute on chronic hypoxic respiratory failure in the setting of COPD exacerbation. Acute on chronic hypoxic respiratory failure in the setting of COPD exacerbation Pt with SOB, difficulty breathing, desatting to 83 on home 2L O2 similar hospitalizations this month where tested positive for RSV and then flu A, last discharge 2 days ago CXR negative for pneumonia continue Solu-Medrol, DuoNebs, and guaifenesin,Titrate supplemental O2 >92, pt on 2L home O2, wean as tolerated Monitor respiratory status CAD Continue aspirin, statin HTN Continue carvedilol Insulin-dependent type 2 diabetes Sliding-scale insulin, Lantus Diabetic diet Peripheral neuropathy Continue gabapentin Hypothyroidism Continue levothyroxine Gout Continue allopurinol DVT Prophylaxis: Lovenox ongoing need for hospilisation:Acute on chronic hypoxic respiratory failure in the setting of COPD exacerbation-needs nebs,steriods ,oxygen weaning ,pulm eval. Quality Stroke Does the patient have a stroke diagnosis?: No VTE Prior VTE?: No VTE Risk Level:: Medical - moderate - high VTE Device Contraindication: Treatment Not Indicated VTE Drug Contraindication: N/A - Med Ordered
[2024-04-22] MEDS: Enoxaparin Sodium 40 MG/0.4 ML SYRINGE SUBCUT (16:02)
[2024-04-22 16:13] LABS: Glucose, Whole Blood 222 mg/dL (60-115)
[2024-04-22 20:12] LABS: Glucose, Whole Blood 252 mg/dL (60-115)
[2024-04-22] MEDS: Docusate Sodium 100 MG CAPSULE PO (22:02)
[2024-04-22] MEDS: Aspirin Enteric Coated 81 MG TABLET.DR PO (22:02)
[2024-04-22] MEDS: Montelukast Sodium 10 MG TABLET PO (22:03)
[2024-04-22] MEDS: Atorvastatin Calcium 80 MG TABLET PO (22:03)
[2024-04-23] VITALS (8 sets, daily range): BP systolic 140–147; BP diastolic 64–83; PULSE 72–92; RESP 16–18; TEMP 36–36.7; O2SAT 94–98
[2024-04-23] MEDS: 0.9 % Sodium Chloride Flush 3 ML SYRINGE IVFLUSH ×3 (00:37→16:57)
--- NOTE | 2024-04-23 02:59 | PC.NURSE ---
Patient is high fall risk and refusing fall precautions or assistance to commode.
[2024-04-23] MEDS: Omeprazole 20 MG CAPSULE.DR PO ×2 (03:55→16:56)
[2024-04-23] MEDS: methylPREDNISolone Sod Succ 40 MG/ML VIAL IVPUSH (03:55)
[2024-04-23] MEDS: Levothyroxine Sodium 112 MCG TABLET PO (03:55)
[2024-04-23] MEDS: oxyCODONE HCl Immed Release 5 MG TABLET 7.5 MG PO ×2 (04:04→17:47)
[2024-04-23] MEDS: guaiFENesin DM 200/20/10 ML 10 ML SYRUP PO (04:04)
[2024-04-23] MEDS: Albuterol/Iprat 2.5/0.5MG 3 ML AMPUL.NEB INHALE ×5 (05:16→20:03)
[2024-04-23 06:54] LABS: Hematocrit 47.6 % (37.0-47.0); Hemoglobin 15.8 g/dl (12.0-16.0); Mean Corpuscular HGB Conc 33.2 g/dl (31.0-35.0); Mean Corpuscular Hemoglobin 28.8 pg (27.0-33.0); Mean Corpuscular Volume 86.7 fL (80.0-98.0); Mean Platelet Volume 10.6 fL (9.4-12.3); Platelet Count 262 X10*3/uL (160-400); Red Blood Count 5.49 X10*6/uL (4.20-5.50); Red Cell Distribution Width 14.4 % (11.0-16.0); White Blood Count 19.1 X10*3/uL (4.8-10.8)
[2024-04-23 06:58] LABS: Anion Gap 14 (12-20); Blood Urea Nitrogen 32 mg/dL (9-16); Calcium 8.8 mg/dL (8.4-10.2); Carbon Dioxide 27 mmol/L (22-29); Chloride 106 mmol/L (96-108); Creatinine Clr Calc Pharmacy 73.7; Estimated Glomerular Filt Rate > 60; Glucose Random 266 mg/dL (60-115); Potassium 4.6 mmol/L (3.3-5.1); Sodium 142 mmol/L (135-145)
[2024-04-23 07:53] LABS: Glucose, Whole Blood 262 mg/dL (60-115)
[2024-04-23] MEDS: carvediloL 6.25 MG TABLET PO ×2 (08:03→20:58)
[2024-04-23] MEDS: Insulin Lispro 100 UNIT/ML 3 ML VIAL SUBCUT ×4 (08:03→20:59)
[2024-04-23] MEDS: Empagliflozin 10 MG TABLET PO (08:03)
[2024-04-23] MEDS: Pregabalin 100 MG CAPSULE PO ×3 (08:04→20:58)
[2024-04-23] MEDS: Roflumilast 500 MCG TABLET PO (08:04)
[2024-04-23] MEDS: allopurinoL 100 MG TABLET PO (08:04)
[2024-04-23] MEDS: Loratadine 10 MG TABLET PO (08:04)
[2024-04-23] MEDS: Sennosides 8.6 MG TABLET PO ×2 (08:04→20:58)
[2024-04-23] MEDS: Nicotine 21 MG PATCH.TD24 TRANSDERMA (08:06)
[2024-04-23] MEDS: Fluticasone/Umeclidinium/Vilanterol 100/62.5/25 BLST.W.DEV 1 PUFF INHALE (08:16)
[2024-04-23 11:27] LABS: Glucose, Whole Blood 352 mg/dL (60-115)
[2024-04-23] MEDS: Milk of Magnesia 30 ML ORAL.SUSP PO (12:22)
--- NOTE | 2024-04-23 12:30 | P.PNIM_ITS ---
Subjective Subjective Date of Service: 04/23/24 Interval History: Minimal improvement since admission. Still with O2 requirement. States she gets short of breath with Review of Systems Denies chest pain Admits shortness of breath with minimal exertion Denies nausea vomiting diarrhea Denies fever chills Physical Exam 2 Vital Signs: Vital Signs: Last Vital Signs Temp 96.8 F 04/23/24 07:38 Pulse 84 04/23/24 11:47 Resp 18 04/23/24 11:47 BP 140/67 H 04/23/24 07:38 Pulse Ox 95 04/23/24 07:38 O2 Del Method Nasal Cannula 04/23/24 07:38 O2 Flow Rate 2 04/23/24 07:38 BMI result Body Mass Index 28.2 Const: Other: Awake alert no acute distress Resp: Other: Diminished at bases with scattered expiratory wheezes throughout Cardio: Other: No S4; positive S1-S2; no S3 murmurs rubs or gallops Extrem: Other: No edema bilaterally Objective Data Active Medications Acetaminophen (Acetaminophen 325 Mg Tablet) 650 mg PO Q6H PRN PRN Reason: Pain, Mild 1-3,fever,headache Last Admin: 04/21/24 17:45 Dose: 650 mg Documented By: RENEA Albuterol/Ipratropium (Albuterol/Iprat 2.5/0.5mg 3 Ml Ampul.Neb) 3 ml INHALE RQ4H WHILE AWAKE [facility] Last Admin: 04/23/24 11:47 Dose: 3 ml Documented By: ZACHERY Albuterol/Ipratropium (Albuterol/Iprat 2.5/0.5mg 3 Ml Ampul.Neb) 3 ml INHALE RQ4H WHILE AWAKE PRN PRN Reason: Shortness of Breath/Wheezing Last Admin: 04/21/24 22:20 Dose: 3 ml Documented By: STEPHANIE Allopurinol (Allopurinol 100 Mg Tablet) 100 mg PO DAILY [facility] Last Admin: 04/23/24 08:04 Dose: 100 mg Documented By: SHUKRI Aspirin (Aspirin Enteric Coated 81 Mg Tablet.) 81 mg PO BEDTIME [facility] Last Admin: 04/22/24 22:02 Dose: 81 mg Documented By: NEDRA Atorvastatin Calcium (Atorvastatin Calcium 80 Mg Tablet) 80 mg PO BEDTIME [facility]; Protocol Last Admin: 04/22/24 22:03 Dose: 80 mg Documented By: NEDRA Calcium Carbonate (Calcium Carbonate 750 Mg Tab.Chew) 750 mg PO Q4H PRN PRN Reason: Heartburn Carvedilol (Carvedilol 6.25 Mg Tablet) 6.25 mg PO BID [facility]; Protocol Last Admin: 04/23/24 08:03 Dose: 6.25 mg Documented By: SHUKRI Docusate Sodium (Docusate Sodium 100 Mg Capsule) 100 mg PO BEDTIME [facility] Last Admin: 04/22/24 22:02 Dose: 100 mg Documented By: NEDRA Empagliflozin (Empagliflozin 10 Mg Tablet) 10 mg PO DAILY [facility] Last Admin: 04/23/24 08:03 Dose: 10 mg Documented By: SHUKRI Enoxaparin Sodium (Enoxaparin Sodium 40 Mg/0.4 Ml Syringe) 40 mg SUBCUT Q24H [facility] Last Admin: 04/22/24 16:02 Dose: 40 mg Documented By: BETZY Fluticasone Propionate (Fluticasone Propionate Nasal 16 Gm [place]) 1 spray NOSTRIL-B DAILY PRN PRN Reason: Congestion Fluticasone/Umeclidinium/Vilanterol (Fluticasone/Umeclidinium/Vilanterol 100/62.5/25 Blst.W.Dev) 1 puff INHALE RDAILY [facility] Last Admin: 04/23/24 08:16 Dose: 1 puff Documented By: ZACHERY Glucose (Glucose Gel 15 Gm Gel..Gram.) 15 gm PO Q15M PRN; Protocol PRN Reason: per Hypoglycemia Standing Ord. Guaifenesin/Dextromethorphan (Guaifenesin Dm 200/20/10 Ml 10 Ml Syrup) 10 ml PO Q4H PRN PRN Reason: Cough Last Admin: 04/23/24 04:04 Dose: 10 ml Documented By: PRO Dextrose (D10) 250 mls @ 750 mls/hr IV Q15M PRN; Protocol PRN Reason: per Hypoglycemia Standing Ord. Insulin Human Lispro (Insulin Lispro 100 Unit/Ml 3 Ml Vial) 0 unit SUBCUT QIDACHS [facility]; Protocol Last Admin: 04/23/24 12:21 Dose: 12 unit Documented By: SHUKRI Levothyroxine Sodium (Levothyroxine Sodium 112 Mcg Tablet) 112 mcg PO DAILY@0600 [facility] Last Admin: 04/23/24 03:55 Dose: 112 mcg Documented By: PRO Comments: given early per pt request. She does not want to be woken multiple times. Loratadine (Loratadine 10 Mg Tablet) 10 mg PO DAILY [facility] Last Admin: 04/23/24 08:04 Dose: 10 mg Documented By: SHUKRI Magnesium Hydroxide (Milk Of Magnesia 30 Ml Oral.Susp) 30 ml PO DAILY PRN PRN Reason: Constipation Last Admin: 04/23/24 12:22 Dose: 30 ml Documented By: SHUKRI Melatonin (Melatonin 3 Mg Tablet) 6 mg PO BEDTIME PRN PRN Reason: Insomnia Methocarbamol (Methocarbamol 750 Mg Tablet) 750 mg PO Q8H PRN PRN Reason: neuropathy Methylprednisolone Sodium Succinate (Methylprednisolone Sod Succ 125 Mg/2 Ml Vial) 60 mg IVPUSH Q6H [facility] Montelukast Sodium (Montelukast Sodium 10 Mg Tablet) 10 mg PO BEDTIME [facility] Last Admin: 04/22/24 22:03 Dose: 10 mg Documented By: NEDRA Naloxone HCl (Naloxone Hcl Nasal 4 Mg [place]) 4 mg NOSTRILALT ONCE PRN PRN Reason: Opioid Overdose Nicotine (Nicotine 21 Mg Patch.Td24) 21 mg TRANSDERMA DAILY [facility] Last Admin: 04/23/24 08:06 Dose: 21 mg Documented By: SHUKRI Omeprazole (Omeprazole 20 Mg Capsule.Dr) 20 mg PO BID@0630,1630 [facility] Last Admin: 04/23/24 03:55 Dose: 20 mg Documented By: PRO Comments: given early per pt request. She does not want to be woken multiple times. Ondansetron HCl (Ondansetron Hcl 4 Mg/2 Ml Vial) 4 mg IVPUSH Q8H PRN PRN Reason: Nausea and Vomiting Oxycodone HCl (Oxycodone Hcl Immed Release 5 Mg Tablet) 7.5 mg PO Q6H PRN PRN Reason: Pain, Severe (Pain Scale 7-10) Last Admin: 04/23/24 04:04 Dose: 7.5 mg Documented By: PRO Pregabalin (Pregabalin 100 Mg Capsule) 100 mg PO TID [facility] Last Admin: 04/23/24 08:04 Dose: 100 mg Documented By: SHUKRI Roflumilast (Roflumilast 500 Mcg Tablet) 500 mcg PO DAILY [facility] Last Admin: 04/23/24 08:04 Dose: 500 mcg Documented By: SHUKRI Senna (Sennosides 8.6 Mg Tablet) 8.6 mg PO BID [facility] Last Admin: 04/23/24 08:04 Dose: 8.6 mg Documented By: SHUKRI Sodium Chloride (0.9 % Sodium Chloride Flush 3 Ml Syringe) 3 ml IVFLUSH QSHIFT [facility] Last Admin: 04/23/24 08:06 Dose: 3 ml Documented By: SHUKRI Labs 04/23/24 06:18 04/23/24 06:18 Labs: Laboratory Results - last 24 hr 04/22/24 04/22/24 04/23/24 16:08 20:06 06:18 MCV 86.7 MCH 28.8 MCHC 33.2 RDW 14.4 Plt Count 262 MPV 10.6 Absolute Nucleated RBC 0.000 Nucleated RBC % (auto) 0.0 Anion Gap 14 Estim Creat Clear Calc 73.7 Estimated GFR > 60 POC Glucose 222 H 252 H Random Glucose 266 H Calcium 8.8 04/23/24 04/23/24 07:49 11:21 MCV MCH MCHC RDW Plt Count MPV Absolute Nucleated RBC Nucleated RBC % (auto) Anion Gap Estim Creat Clear Calc Estimated GFR POC Glucose 262 H 352 H* Random Glucose Calcium Assessment and Plan (1) COPD exacerbation: Status: Acute (2) RSV infection: Status: Acute Plan 63-year-old female with a PMH significant for?CAD, insulin-dependent type 2 diabetes, COPD recently started on 2L home O2, HTN, hypothyroidism, GERD, and gout who presents to the ED with?increased SOB productive and difficulty breathing. Pt will be admitted to the hospital for treatment and further evaluation of acute on chronic hypoxic respiratory failure in the setting of COPD exacerbation. 1.Acute on chronic hypoxic respiratory failure in the setting of COPD exacerbation -positive for RSV/ flu A, -CXR negative for pneumonia -increase Solu-Medrol to 60 mg q.6 hours -DuoNebs as ordered -titrate O2 to maintain sats greater than equal to 92% 2.CAD -stable and well compensated -continue current therapies 3.HTN -acceptable control on current therapies -adjust as indicated 4.Insulin-dependent type 2 diabetes -acceptable control on current therapies. . . Higher given steroids -lispro correctional scale -adjust as indicated Lovenox Full code ongoing need for hospilisation:Acute on chronic hypoxic respiratory failure in the setting of COPD exacerbation-needs nebs,steriods ,oxygen weaning ,pulm eval. Quality Stroke Does the patient have a stroke diagnosis?: No VTE Prior VTE?: No VTE Risk Level:: Medical - moderate - high VTE Device Contraindication: Treatment Not Indicated VTE Drug Contraindication: N/A - Med Ordered
[2024-04-23] MEDS: methylPREDNISolone Sod Succ 125 MG/2 ML VIAL 60 MG IVPUSH ×2 (13:31→20:58)
--- NOTE | 2024-04-23 14:39 | P.CONPL_ITS ---
History of Present Illness History of Present Illness Consult date: 04/23/24 Chief complaint: COPD exacerbation, hypoxia Narrative: This is an in patient pulmonary consultation. The patient is a 63-year-old female with a PMH significant for?CAD, insulin-dependent type 2 diabetes, COPD recently started on 2L home O2, HTN, hypothyroidism, GERD, and gout who presents to the ED with?increased SOB productive and difficulty breathing. The pt has had 2 recent prior hospitalizations for similar symptoms, on 04/07-04/11 for hypoxia and COPD exacerbation from RSV infection and most recently being discharged 2 days prior after being admitted for acute hypoxic respiratory failure setting of COPD exacerbation from flu infection. Pt reports she felt well after last discharge and had no difficulty breathing or ambulating around her home. Yesterday however pt had increased difficulty breathing with exertion, which significantly worsened this morning. Pt reported ambulated to the bathroom and needed to have help getting back to bed despite resting for 15 minutes. Was seen by PT today who noted pt was desatting into the low 80s with ambulation on home O2 and recommended coming to the ED for further evaluation. Chest xray personally reviewed by me with no acute disease. Currently on solumedrol. She still has a hard time breathing and feels weak. Review of Systems 2 Constitutional: Constitutional: Reports no additional constitutional complaints Cardiovascular: Cardiovascular: Reports dyspnea Respiratory: Respiratory: Reports dyspnea and Reports wheezing Gastrointestinal: Gastrointestinal: Reports no additional gastrointestinal complaints Genitourinary: Genitourinary: Reports no additional female genitourinary complaints Allergic/Immunologic: Allergic/Immunologic: Reports wheezing PMFSH Past Medical History Medical History Asthma-COPD overlap syndrome Allergies History of back pain History of neuropathy Smokes tobacco daily Opioid dependence Nephrolithiasis Hyperlipidemia HTN (hypertension) Cardiomyopathy Myocardial infarction CAD (coronary artery disease) Cough Hypothyroidism, postsurgical Tubular adenoma Diabetes MCKAY (obstructive sleep apnea) Irritable bowel syndrome Hyperthyroidism Polycythemia Smoker Hypoxia COPD exacerbation Lesion of bronchus Tracheal anomaly Multinodular goiter Vitamin D deficiency Atelectasis Subclinical hyperthyroidism Goiter Pneumonia Pulmonary nodules COPD (chronic obstructive pulmonary disease) Family History Family History Father No problems noted. Mother No problems noted. 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 Advance Directives: Yes Advance Directives on File: Yes Advance Directives Date on File: 01/24/21 Do you have a plan to hurt others: No Plan Recently lost weight without trying: Unsure How much weight loss: Unsure Eating poorly because of decreased appetite: No Nutrition screen score: 4 Patient : No : No Poor oral hygiene: No service: No Current occupational status: disabled Meds Allergies Allergy/AdvReac Type Severity Reaction Status Date / Time HANK Inhibitors Allergy Severe ANGIO Verified 04/21/24 12:28 [HANK INHIBITORS] EDEMA enalapril Allergy Severe Anaphylaxis Verified 04/21/24 12:28 erythromycin base Allergy Severe HIVES ALL Verified 04/21/24 12:28 [ERYTHROMYCIN BASE] OVER metformin Allergy Unknown Verified 04/21/24 12:28 hydromorphone [From DILAUDID] AdvReac Severe TINGLING, Verified 04/21/24 12:28 PT DOES NOT LIKE THE FEELING MED GIVES HER Active Medications: Current Medications Acetaminophen (Acetaminophen 325 Mg Tablet) 650 mg PO Q6H PRN PRN Reason: Pain, Mild 1-3,fever,headache Last Admin: 04/21/24 17:45 Dose: 650 mg Albuterol/Ipratropium (Albuterol/Iprat 2.5/0.5mg 3 Ml Ampul.Neb) 3 ml INHALE RQ4H WHILE AWAKE [facility] Last Admin: 04/23/24 11:47 Dose: 3 ml Albuterol/Ipratropium (Albuterol/Iprat 2.5/0.5mg 3 Ml Ampul.Neb) 3 ml INHALE RQ4H WHILE AWAKE PRN PRN Reason: Shortness of Breath/Wheezing Last Admin: 04/21/24 22:20 Dose: 3 ml Allopurinol (Allopurinol 100 Mg Tablet) 100 mg PO DAILY [facility] Last Admin: 04/23/24 08:04 Dose: 100 mg Aspirin (Aspirin Enteric Coated 81 Mg Tablet.Dr) 81 mg PO BEDTIME [facility] Last Admin: 04/22/24 22:02 Dose: 81 mg Atorvastatin Calcium (Atorvastatin Calcium 80 Mg Tablet) 80 mg PO BEDTIME [facility]; Protocol Last Admin: 04/22/24 22:03 Dose: 80 mg Calcium Carbonate (Calcium Carbonate 750 Mg Tab.Chew) 750 mg PO Q4H PRN PRN Reason: Heartburn Carvedilol (Carvedilol 6.25 Mg Tablet) 6.25 mg PO BID [facility]; Protocol Last Admin: 04/23/24 08:03 Dose: 6.25 mg Docusate Sodium (Docusate Sodium 100 Mg Capsule) 100 mg PO BEDTIME [facility] Last Admin: 04/22/24 22:02 Dose: 100 mg Empagliflozin (Empagliflozin 10 Mg Tablet) 10 mg PO DAILY [facility] Last Admin: 04/23/24 08:03 Dose: 10 mg Enoxaparin Sodium (Enoxaparin Sodium 40 Mg/0.4 Ml Syringe) 40 mg SUBCUT Q24H [facility] Last Admin: 04/22/24 16:02 Dose: 40 mg Fluticasone Propionate (Fluticasone Propionate Nasal 16 Gm Colver) 1 spray NOSTRIL-B DAILY PRN PRN Reason: Congestion Fluticasone/Umeclidinium/Vilanterol (Fluticasone/Umeclidinium/Vilanterol 100/62.5/25 Blst.W.Dev) 1 puff INHALE RDAILY [facility] Last Admin: 04/23/24 08:16 Dose: 1 puff Glucose (Glucose Gel 15 Gm Gel..Gram.) 15 gm PO Q15M PRN; Protocol PRN Reason: per Hypoglycemia Standing Ord. Guaifenesin/Dextromethorphan (Guaifenesin Dm 200/20/10 Ml 10 Ml Syrup) 10 ml PO Q4H PRN PRN Reason: Cough Last Admin: 04/23/24 04:04 Dose: 10 ml Dextrose (D10) 250 mls @ 750 mls/hr IV Q15M PRN; Protocol PRN Reason: per Hypoglycemia Standing Ord. Insulin Human Lispro (Insulin Lispro 100 Unit/Ml 3 Ml Vial) 0 unit SUBCUT QIDACHS [facility]; Protocol Last Admin: 04/23/24 12:21 Dose: 12 unit Levothyroxine Sodium (Levothyroxine Sodium 112 Mcg Tablet) 112 mcg PO DAILY@0600 [facility] Last Admin: 04/23/24 03:55 Dose: 112 mcg Loratadine (Loratadine 10 Mg Tablet) 10 mg PO DAILY [facility] Last Admin: 04/23/24 08:04 Dose: 10 mg Magnesium Hydroxide (Milk Of Magnesia 30 Ml Oral.Susp) 30 ml PO DAILY PRN PRN Reason: Constipation Last Admin: 04/23/24 12:22 Dose: 30 ml Melatonin (Melatonin 3 Mg Tablet) 6 mg PO BEDTIME PRN PRN Reason: Insomnia Methocarbamol (Methocarbamol 750 Mg Tablet) 750 mg PO Q8H PRN PRN Reason: neuropathy Methylprednisolone Sodium Succinate (Methylprednisolone Sod Succ 125 Mg/2 Ml Vial) 60 mg IVPUSH Q6H [facility] Last Admin: 04/23/24 13:31 Dose: 60 mg Montelukast Sodium (Montelukast Sodium 10 Mg Tablet) 10 mg PO BEDTIME [facility] Last Admin: 04/22/24 22:03 Dose: 10 mg Naloxone HCl (Naloxone Hcl Nasal 4 Mg Colver) 4 mg NOSTRILALT ONCE PRN PRN Reason: Opioid Overdose Nicotine (Nicotine 21 Mg Patch.Td24) 21 mg TRANSDERMA DAILY [facility] Last Admin: 04/23/24 08:06 Dose: 21 mg Omeprazole (Omeprazole 20 Mg Capsule.Dr) 20 mg PO BID@0630,1630 [facility] Last Admin: 04/23/24 03:55 Dose: 20 mg Ondansetron HCl (Ondansetron Hcl 4 Mg/2 Ml Vial) 4 mg IVPUSH Q8H PRN PRN Reason: Nausea and Vomiting Oxycodone HCl (Oxycodone Hcl Immed Release 5 Mg Tablet) 7.5 mg PO Q6H PRN PRN Reason: Pain, Severe (Pain Scale 7-10) Last Admin: 04/23/24 04:04 Dose: 7.5 mg Pregabalin (Pregabalin 100 Mg Capsule) 100 mg PO TID [facility] Last Admin: 04/23/24 13:31 Dose: 100 mg Roflumilast (Roflumilast 500 Mcg Tablet) 500 mcg PO DAILY [facility] Last Admin: 04/23/24 08:04 Dose: 500 mcg Senna (Sennosides 8.6 Mg Tablet) 8.6 mg PO BID [facility] Last Admin: 04/23/24 08:04 Dose: 8.6 mg Sodium Chloride (0.9 % Sodium Chloride Flush 3 Ml Syringe) [facility] Last Admin: 04/23/24 08:06 Dose: 3 ml Home Medications ?Medication ?Instructions ?Recorded ?Confirmed ?Last Taken ?Type aspirin 81 mg tablet,delayed 81 mg PO BEDTIME 12/24/19 04/21/24 04/20/24 History release atorvastatin 80 mg tablet 80 mg PO BEDTIME 12/24/19 04/21/24 04/20/24 History carvedilol 6.25 mg tablet 6.25 mg PO BID 12/24/19 04/21/24 04/20/24 History cetirizine 10 mg tablet 10 mg PO DAILY PRN allergies 12/24/19 04/21/24 04/07/24 History montelukast 10 mg tablet 10 mg PO BEDTIME 12/24/19 04/21/24 04/20/24 History omeprazole 20 mg capsule,delayed 20 mg PO BID@0630,1630 12/24/19 04/21/24 04/20/24 History release docusate sodium 100 mg capsule 1 cap PO BEDTIME Constipation 01/24/21 04/21/24 04/20/24 History blood sugar diagnostic (FreeStyle #10 ea 10/07/21 03/03/24 10/20/22 09:00 History Lite Strips) lancets 33 gauge (TRUEplus Lancets) #100 ea 10/07/21 03/03/24 10/20/22 09:00 History naloxone 4 mg/actuation nasal spray 1 spray intranasal ONCE PRN Opioid 10/07/21 04/21/24 01/29/23 History Overdose oxycodone-acetaminophen 7.5 mg-325 1 tab PO Q6H PRN severe pain 06/23/22 04/21/24 04/07/24 History mg tablet sennosides 8.6 mg tablet (senna) 8.6 mg PO BID Constipation 01/30/23 04/21/24 04/20/24 History nebulizers 06/03/23 03/03/24 Unknown History empagliflozin 10 mg tablet 10 mg PO DAILY 02/10/24 04/21/24 04/20/24 History (Jardiance) methocarbamol 750 mg tablet 750 mg PO Q8H PRN neuropathy 03/03/24 04/21/24 04/20/24 History insulin glargine 100 unit/mL (3 35 unit subcut BID 04/07/24 04/21/24 04/20/24 History mL) subcutaneous pen (Lantus Solostar U-100 Insulin) levothyroxine 112 mcg tablet 112 mcg PO DAILY@0600 04/07/24 04/21/24 04/20/24 History lidocaine 5 % topical patch 1 patch topical DAILY PRN pain 04/07/24 04/21/24 Unknown History pregabalin 100 mg capsule 100 mg PO TID 04/07/24 04/21/24 04/20/24 History dulaglutide 1.5 mg/0.5 mL 1.5 mg subcut WE@0900 04/21/24 04/21/24 04/20/24 History subcutaneous pen injector (Trulicity) dupilumab 300 mg/2 mL subcutaneous 300 mg subcut Q2W 04/21/24 04/21/24 04/20/24 History pen injector (Dupixent) fluticasone fur. 100 mcg-umeclid 1 ea inhalation DAILY 04/21/24 04/21/24 04/20/24 History 62.5 mcg-vilant 25 mcg inhalat.powder (Trelegy Ellipta) fluticasone propionate 50 1 spray intranasal DAILY PRN 04/21/24 04/21/24 04/20/24 History mcg/actuation nasal Congestion spray,suspension insulin aspart U-100 100 unit/mL 6 - 10 sliding scale dose subcut 04/21/24 04/21/24 04/20/24 History (3 mL) subcutaneous pen (Novolog TIDAC FlexPen U-100 Insulin aspart) ipratropium 0.5 mg-albuterol 3 mg 3 ml inhalation QID PRN Shortness 04/21/24 04/21/24 Unknown History (2.5 mg base)/3 mL nebulization Of Breath Or Wheezing soln ipratropium 20 mcg-albuterol 100 2 puff inhalation BID 04/21/24 04/21/24 04/20/24 History mcg/actuation mist for inhalation (Combivent Respimat) prednisone 10 mg tablet See Taper PO DAILY 04/21/24 04/21/24 04/20/24 History Physical Exam 2 Vital Signs: Vital Signs: Last Vital Signs Temp 96.9 F 04/23/24 14:00 Pulse 73 04/23/24 14:00 Resp 18 04/23/24 14:00 BP 140/64 H 04/23/24 14:00 Pulse Ox 96 04/23/24 14:00 O2 Del Method Nasal Cannula 04/23/24 14:00 O2 Flow Rate 2 04/23/24 14:00 BMI result Body Mass Index 28.2 Const: Other: Awake alert no acute distress General: alert and awake Nutritional Appearance: overweight O rientation/consciousness: patient oriented x3 Neck: Neck: Yes normal visual inspection Resp: Other: b/l exp wheeze; poor air entry Effort & Inspection: able to speak in complete sentences and prolonged expiratory phase Auscultation: wheezes Cardio: Other: No S4; positive S1-S2; no S3 murmurs rubs or gallops Heart sounds: S1 normal heart sound present and S2 normal heart sound present GI: Palpation (GI): Soft to palpation Neuro: Other: grossly nonfocal General: patient oriented x3 Extrem: Other: No edema bilaterally Results Laboratory Findings 04/23/24 06:18 04/23/24 06:18 Abnormal lab findings: Abnormal Labs 04/21/24 04/21/24 04/21/24 12:50 12:58 18:16 WBC 22.9 H RBC 5.87 H Hgb 16.6 H Hct 51.1 H Neutrophils % (Manual) 92 H Lymphocytes % (Manual) 4 L Abs Neuts (Manual) 21.8 H Lymphocytes # (Manual) 0.9 L VBG pH 7.47 H VBG HCO3 31 H BUN 30 H POC Glucose 305 H Random Glucose 319 H AST 44 H ALT 56 H Albumin 3.4 L RSV (PCR) Detected A 04/21/24 04/22/24 04/22/24 21:19 05:30 07:47 WBC RBC Hgb Hct Neutrophils % (Manual) Lymphocytes % (Manual) Abs Neuts (Manual) Lymphocytes # (Manual) VBG pH VBG HCO3 BUN 30 H POC Glucose 293 H 290 H Random Glucose 239 H AST ALT Albumin RSV (PCR) 04/22/24 04/22/24 04/22/24 11:32 16:08 20:06 WBC RBC Hgb Hct Neutrophils % (Manual) Lymphocytes % (Manual) Abs Neuts (Manual) Lymphocytes # (Manual) VBG pH VBG HCO3 BUN POC Glucose 300 H 222 H 252 H Random Glucose AST ALT Albumin RSV (PCR) 04/23/24 04/23/24 04/23/24 06:18 07:49 11:21 WBC 19.1 H RBC Hgb Hct 47.6 H Neutrophils % (Manual) Lymphocytes % (Manual) Abs Neuts (Manual) Lymphocytes # (Manual) VBG pH VBG HCO3 BUN 32 H POC Glucose 262 H 352 H* Random Glucose 266 H AST ALT Albumin RSV (PCR) Assessment and Plan (1) RSV infection: Qualifiers: RSV infection type: acute bronchiolitis Qualified Code(s): J21.0 - Acute bronchiolitis due to respiratory syncytial virus Status: Acute (2) COPD exacerbation: Status: Acute (3) Asthma-COPD overlap syndrome: Status: Acute (4) Hypoxia: Status: Acute Plan continue Solumedrol Start Doxycycline continue nebs CPT with ISS and Aerobika will benefit from in pt pulmonary rehab Procedures Date of Service Date of Service: 04/23/24
[2024-04-23 16:44] LABS: Glucose, Whole Blood 262 mg/dL (60-115)
--- NOTE | 2024-04-23 17:36 | PC.NURSE ---
pt refused bed alarm and fall precaution measures. pt educated on importance of fall precautions and instructed to use the call hanley if experiencing dizziness or needing assistance. pt verbalized understanding.
[2024-04-23] MEDS: Doxycycline Monohydrate 100 MG CAPSULE PO (17:47)
[2024-04-23] MEDS: Enoxaparin Sodium 40 MG/0.4 ML SYRINGE SUBCUT (17:52)
[2024-04-23 20:49] LABS: Glucose, Whole Blood 303 mg/dL (60-115)
[2024-04-23] MEDS: Docusate Sodium 100 MG CAPSULE PO (20:58)
[2024-04-23] MEDS: Aspirin Enteric Coated 81 MG TABLET.DR PO (20:58)
[2024-04-23] MEDS: Atorvastatin Calcium 80 MG TABLET PO (20:58)
[2024-04-23] MEDS: Montelukast Sodium 10 MG TABLET PO (20:59)
[2024-04-24] VITALS (12 sets, daily range): BP systolic 140–170; BP diastolic 60–89; PULSE 70–87; RESP 14–18; TEMP 36.3–36.6; O2SAT 93–96
[2024-04-24] MEDS: 0.9 % Sodium Chloride Flush 3 ML SYRINGE IVFLUSH ×4 (01:13→19:44)
[2024-04-24] MEDS: methylPREDNISolone Sod Succ 125 MG/2 ML VIAL 60 MG IVPUSH ×4 (01:13→18:11)
[2024-04-24] MEDS: guaiFENesin DM 200/20/10 ML 10 ML SYRUP PO ×2 (01:24→19:44)
[2024-04-24] MEDS: Albuterol/Iprat 2.5/0.5MG 3 ML AMPUL.NEB INHALE ×5 (03:35→19:37)
[2024-04-24] MEDS: oxyCODONE HCl Immed Release 5 MG TABLET 7.5 MG PO ×2 (06:35→19:45)
[2024-04-24] MEDS: Levothyroxine Sodium 112 MCG TABLET PO (06:36)
[2024-04-24] MEDS: Doxycycline Monohydrate 100 MG CAPSULE PO ×2 (06:36→16:48)
[2024-04-24] MEDS: Omeprazole 20 MG CAPSULE.DR PO ×2 (06:36→16:48)
--- NOTE | 2024-04-24 06:57 | PC.NURSE ---
patient refused bed alarm overnight but is high risk
[2024-04-24 07:22] LABS: Glucose, Whole Blood 333 mg/dL (60-115)
[2024-04-24] MEDS: Insulin Lispro 100 UNIT/ML 3 ML VIAL SUBCUT ×5 (07:40→21:45)
[2024-04-24] MEDS: Fluticasone/Umeclidinium/Vilanterol 100/62.5/25 BLST.W.DEV 1 PUFF INHALE (08:18)
[2024-04-24] MEDS: Pregabalin 100 MG CAPSULE PO ×3 (09:32→19:47)
[2024-04-24] MEDS: Roflumilast 500 MCG TABLET PO (09:32)
[2024-04-24] MEDS: Sennosides 8.6 MG TABLET PO ×2 (09:32→19:47)
[2024-04-24] MEDS: allopurinoL 100 MG TABLET PO (09:32)
[2024-04-24] MEDS: Loratadine 10 MG TABLET PO (09:32)
[2024-04-24] MEDS: Empagliflozin 10 MG TABLET PO (09:32)
[2024-04-24] MEDS: Nicotine 21 MG PATCH.TD24 TRANSDERMA (09:33)
[2024-04-24] MEDS: carvediloL 6.25 MG TABLET PO ×2 (09:37→19:48)
[2024-04-24 11:18] LABS: Glucose, Whole Blood 353 mg/dL (60-115)
--- NOTE | 2024-04-24 13:21 | HO.PM.IMPN ---
Subjective Subjective Date of Service: 04/24/24 Interval History: No acute issues overnight. Continues to improve slowly. Responding to steroids Review of Systems Denies chest pain Admits shortness of breath with minimal exertion Denies nausea vomiting diarrhea Denies fever chills Physical Exam Vital Signs: Vital Signs: Last Vital Signs Temp 97.4 F 04/24/24 07:16 Pulse 78 04/24/24 12:02 Resp 16 04/24/24 12:02 BP 151/71 H 04/24/24 09:37 Pulse Ox 96 04/24/24 07:16 O2 Del Method Nasal Cannula 04/24/24 07:16 O2 Flow Rate 2 04/24/24 07:16 BMI result Body Mass Index 28.2 Const: Other: Awake alert no acute distress Resp: Other: Diminished at bases with scattered expiratory wheezes throughout Cardio: Other: No S4; positive S1-S2; no S3 murmurs rubs or gallops Extrem: Other: No edema bilaterally Objective Data Active Medications Acetaminophen (Acetaminophen 325 Mg Tablet) 650 mg PO Q6H PRN PRN Reason: Pain, Mild 1-3,fever,headache Last Admin: 04/21/24 17:45 Dose: 650 mg Documented By: RENEA Albuterol/Ipratropium (Albuterol/Iprat 2.5/0.5mg 3 Ml Ampul.Neb) 3 ml INHALE RQ4H WHILE AWAKE [facility] Last Admin: 04/24/24 12:01 Dose: 3 ml Documented By: EMILIO Albuterol/Ipratropium (Albuterol/Iprat 2.5/0.5mg 3 Ml Ampul.Neb) 3 ml INHALE RQ4H WHILE AWAKE PRN PRN Reason: Shortness of Breath/Wheezing Last Admin: 04/24/24 03:35 Dose: 3 ml Documented By: DIOR Allopurinol (Allopurinol 100 Mg Tablet) 100 mg PO DAILY [facility] Last Admin: 04/24/24 09:32 Dose: 100 mg Documented By: SHUKRI Aspirin (Aspirin Enteric Coated 81 Mg Tablet.) 81 mg PO BEDTIME [facility] Last Admin: 04/23/24 20:58 Dose: 81 mg Documented By: ALYCE Atorvastatin Calcium (Atorvastatin Calcium 80 Mg Tablet) 80 mg PO BEDTIME [facility]; Protocol Last Admin: 04/23/24 20:58 Dose: 80 mg Documented By: ALYCE Calcium Carbonate (Calcium Carbonate 750 Mg Tab.Chew) 750 mg PO Q4H PRN PRN Reason: Heartburn Carvedilol (Carvedilol 6.25 Mg Tablet) 6.25 mg PO BID [facility]; Protocol Last Admin: 04/24/24 09:37 Dose: 6.25 mg Documented By: SHUKRI Docusate Sodium (Docusate Sodium 100 Mg Capsule) 100 mg PO BEDTIME [facility] Last Admin: 04/23/24 20:58 Dose: 100 mg Documented By: ALYCE Doxycycline Monohydrate (Doxycycline Monohydrate 100 Mg Capsule) 100 mg PO Q12H [facility] Last Admin: 04/24/24 06:36 Dose: 100 mg Documented By: PRO Empagliflozin (Empagliflozin 10 Mg Tablet) 10 mg PO DAILY [facility] Last Admin: 04/24/24 09:32 Dose: 10 mg Documented By: SHUKRI Enoxaparin Sodium (Enoxaparin Sodium 40 Mg/0.4 Ml Syringe) 40 mg SUBCUT Q24H [facility] Last Admin: 04/23/24 17:52 Dose: 40 mg Documented By: SHUKRI Fluticasone Propionate (Fluticasone Propionate Nasal 16 Gm Edroy) 1 spray NOSTRIL-B DAILY PRN PRN Reason: Congestion Fluticasone/Umeclidinium/Vilanterol (Fluticasone/Umeclidinium/Vilanterol 100/62.5/25 Blst.W.Dev) 1 puff INHALE RDAILY [facility] Last Admin: 04/24/24 08:18 Dose: 1 puff Documented By: ZACHERY Glucose (Glucose Gel 15 Gm Gel..Gram.) 15 gm PO Q15M PRN; Protocol PRN Reason: per Hypoglycemia Standing Ord. Guaifenesin/Dextromethorphan (Guaifenesin Dm 200/20/10 Ml 10 Ml Syrup) 10 ml PO Q4H PRN PRN Reason: Cough Last Admin: 04/24/24 01:24 Dose: 10 ml Documented By: PRO Dextrose (D10) 250 mls @ 750 mls/hr IV Q15M PRN; Protocol PRN Reason: per Hypoglycemia Standing Ord. Insulin Human Lispro (Insulin Lispro 100 Unit/Ml 3 Ml Vial) 0 unit SUBCUT QIDACHS [facility]; Protocol Last Admin: 04/24/24 11:34 Dose: 12 unit Documented By: SHUKRI Levothyroxine Sodium (Levothyroxine Sodium 112 Mcg Tablet) 112 mcg PO DAILY@0600 [facility] Last Admin: 04/24/24 06:36 Dose: 112 mcg Documented By: PRO Loratadine (Loratadine 10 Mg Tablet) 10 mg PO DAILY [facility] Last Admin: 04/24/24 09:32 Dose: 10 mg Documented By: SHUKRI Magnesium Hydroxide (Milk Of Magnesia 30 Ml Oral.Susp) 30 ml PO DAILY PRN PRN Reason: Constipation Last Admin: 04/23/24 12:22 Dose: 30 ml Documented By: SHUKRI Melatonin (Melatonin 3 Mg Tablet) 6 mg PO BEDTIME PRN PRN Reason: Insomnia Methocarbamol (Methocarbamol 750 Mg Tablet) 750 mg PO Q8H PRN PRN Reason: neuropathy Methylprednisolone Sodium Succinate (Methylprednisolone Sod Succ 125 Mg/2 Ml Vial) 60 mg IVPUSH Q6H [facility] Last Admin: 04/24/24 12:56 Dose: 60 mg Documented By: SHUKRI Montelukast Sodium (Montelukast Sodium 10 Mg Tablet) 10 mg PO BEDTIME [facility] Last Admin: 04/23/24 20:59 Dose: 10 mg Documented By: ALYCE Naloxone HCl (Naloxone Hcl Nasal 4 Mg Edroy) 4 mg NOSTRILALT ONCE PRN PRN Reason: Opioid Overdose Nicotine (Nicotine 21 Mg Patch.Td24) 21 mg TRANSDERMA DAILY [facility] Last Admin: 04/24/24 09:33 Dose: 21 mg Documented By: SHUKRI Omeprazole (Omeprazole 20 Mg Capsule.Dr) 20 mg PO BID@0630,1630 [facility] Last Admin: 04/24/24 06:36 Dose: 20 mg Documented By: PRO Ondansetron HCl (Ondansetron Hcl 4 Mg/2 Ml Vial) 4 mg IVPUSH Q8H PRN PRN Reason: Nausea and Vomiting Oxycodone HCl (Oxycodone Hcl Immed Release 5 Mg Tablet) 7.5 mg PO Q6H PRN PRN Reason: Pain, Severe (Pain Scale 7-10) Last Admin: 04/24/24 06:35 Dose: 7.5 mg Documented By: PRO Pregabalin (Pregabalin 100 Mg Capsule) 100 mg PO TID [facility] Last Admin: 04/24/24 09:32 Dose: 100 mg Documented By: SHUKRI Roflumilast (Roflumilast 500 Mcg Tablet) 500 mcg PO DAILY [facility] Last Admin: 04/24/24 09:32 Dose: 500 mcg Documented By: SHUKRI Senna (Sennosides 8.6 Mg Tablet) 8.6 mg PO BID [facility] Last Admin: 04/24/24 09:32 Dose: 8.6 mg Documented By: SHUKRI Sodium Chloride (0.9 % Sodium Chloride Flush 3 Ml Syringe) 3 ml IVFLUSH QSHIFT [facility] Last Admin: 04/24/24 07:42 Dose: 3 ml Documented By: SHUKRI Labs 04/23/24 06:18 04/23/24 06:18 Labs: Laboratory Results - last 24 hr 04/23/24 04/23/24 04/24/24 16:34 20:45 07:15 POC Glucose 262 H 303 H 333 H 04/24/24 11:14 POC Glucose 353 H* Assessment and Plan (1) COPD exacerbation: Status: Acute Plan 63-year-old female with a PMH significant for?CAD, insulin-dependent type 2 diabetes, COPD recently started on 2L home O2, HTN, hypothyroidism, GERD, and gout who presents to the ED with?increased SOB productive and difficulty breathing. Pt will be admitted to the hospital for treatment and further evaluation of acute on chronic hypoxic respiratory failure in the setting of COPD exacerbation. 1.Acute on chronic hypoxic respiratory failure in the setting of COPD exacerbation -positive for RSV/ flu A, -CXR negative for pneumonia -increase Solu-Medrol to 60 mg q.6 hours -DuoNebs as ordered -titrate O2 to maintain sats greater than equal to 92% 2.CAD -stable and well compensated -continue current therapies 3.HTN -acceptable control on current therapies -adjust as indicated 4.Insulin-dependent type 2 diabetes -acceptable control on current therapies. . . Higher given steroids -lispro correctional scale -adjust as indicated Lovenox Full code ongoing need for hospilisation:Acute on chronic hypoxic respiratory failure in the setting of COPD exacerbation-needs nebs,steriods ,oxygen weaning ,pulm eval. Quality Stroke Does the patient have a stroke diagnosis?: No VTE Prior VTE?: No VTE Risk Level:: Medical - moderate - high VTE Device Contraindication: Treatment Not Indicated VTE Drug Contraindication: N/A - Med Ordered
[2024-04-24 16:26] LABS: Glucose, Whole Blood 333 mg/dL (60-115)
[2024-04-24] MEDS: Enoxaparin Sodium 40 MG/0.4 ML SYRINGE SUBCUT (16:48)
--- NOTE | 2024-04-24 19:05 | P.PNPL_ITS ---
Subjective Subjective Date of Service: 04/24/24 Interval history: Seen and examined. Responded well to the higher dose solumedrol. Slow to recover after a prolonged RSV and influenza infection. Objective Data Labs 04/23/24 06:18 04/23/24 06:18 Labs: Laboratory Results - last 24 hr 04/23/24 04/24/24 04/24/24 20:45 07:15 11:14 POC Glucose 303 H 333 H 353 H* 04/24/24 16:21 POC Glucose 333 H Review of Systems Constitutional: Reports no additional constitutional complaints Cardiovascular: Reports dyspnea Respiratory: Reports dyspnea and Reports wheezing Gastrointestinal: Reports no additional gastrointestinal complaints Genitourinary: Reports no additional female genitourinary complaints Allergic/Immunologic: Reports wheezing Physical Exam 2 Vital Signs: Vital Signs: Last Vital Signs Temp 97.6 F 04/24/24 15:52 Pulse 86 04/24/24 15:44 Resp 16 04/24/24 15:52 BP 164/81 H 04/24/24 15:52 Pulse Ox 95 04/24/24 15:52 O2 Del Method Nasal Cannula 04/24/24 15:52 O2 Flow Rate 2 04/24/24 15:52 BMI result Body Mass Index 28.2 Const: Other: Awake alert no acute distress General: alert and awake Nutritional Appearance: overweight O rientation/consciousness: patient oriented x3 Neck: Neck: Yes normal visual inspection Resp: Other: b/l exp wheeze; poor air entry Effort & Inspection: able to speak in complete sentences and prolonged expiratory phase Auscultation: wheezes Cardio: Other: No S4; positive S1-S2; no S3 murmurs rubs or gallops Heart sounds: S1 normal heart sound present and S2 normal heart sound present GI: Palpation (GI): Soft to palpation Neuro: Other: grossly nonfocal General: patient oriented x3 Extrem: Other: No edema bilaterally Procedures Date of Service Date of Service: 04/24/24 Assessment and Plan Assessment and plan (1) Hypoxia: Status: Acute (2) COPD exacerbation: Status: Acute (3) RSV infection: Status: Acute (4) Asthma-COPD overlap syndrome: Status: Acute (5) Influenza A: Status: Resolved Plan continue solumedrol continue respiratory neb continue doxycycline x 8-10 days ISS acapella valve Will benefit from inpt pulmonary rehab Time Spent With Patient Time: Total time managing care of this patient today ____ minutes. Progress Note: Quality Stroke Does the patient have a stroke diagnosis?: No
[2024-04-24] MEDS: Milk of Magnesia 30 ML ORAL.SUSP PO (19:44)
[2024-04-24] MEDS: Atorvastatin Calcium 80 MG TABLET PO (19:46)
[2024-04-24] MEDS: Docusate Sodium 100 MG CAPSULE PO (19:47)
[2024-04-24] MEDS: Aspirin Enteric Coated 81 MG TABLET.DR PO (19:47)
[2024-04-24] MEDS: Montelukast Sodium 10 MG TABLET PO (19:48)
[2024-04-24 20:00] LABS: Glucose, Whole Blood 393 mg/dL (60-115)
[2024-04-24 21:13] LABS: Glucose, Whole Blood 328 mg/dL (60-115)
[2024-04-24] MEDS: Insulin Glargine,Hum.rec.anlog 100 UNIT/ML 10 ML VIAL 25 UNIT SUBCUT (21:45)
[2024-04-25] VITALS (11 sets, daily range): BP systolic 132–162; BP diastolic 71–90; PULSE 72–92; RESP 8–18; TEMP 36.2–36.4; O2SAT 88–97
[2024-04-25] MEDS: methylPREDNISolone Sod Succ 125 MG/2 ML VIAL 60 MG IVPUSH ×4 (00:29→18:18)
[2024-04-25] MEDS: Doxycycline Monohydrate 100 MG CAPSULE PO ×2 (04:21→18:17)
[2024-04-25] MEDS: Levothyroxine Sodium 112 MCG TABLET PO (04:21)
[2024-04-25] MEDS: oxyCODONE HCl Immed Release 5 MG TABLET 7.5 MG PO ×3 (04:21→18:17)
[2024-04-25] MEDS: Omeprazole 20 MG CAPSULE.DR PO ×2 (05:55→17:32)
[2024-04-25] MEDS: Albuterol/Iprat 2.5/0.5MG 3 ML AMPUL.NEB INHALE ×5 (06:26→20:53)
[2024-04-25 06:36] LABS: MANUAL DIFF FLAG NO
[2024-04-25 07:02] LABS: Basophils Percent Auto 0.1 % (0-2); Hematocrit 47.7 % (37.0-47.0); Hemoglobin 15.6 g/dl (12.0-16.0); Imm Gran Abs Auto 0.17 X10*3/uL (0.00-0.03); Lymphocytes Absolute Auto 1.3 X10*3/uL (1.2-4.9); Lymphocytes Percent Auto 7.3 % (20-40); Mean Corpuscular HGB Conc 32.7 g/dl (31.0-35.0); Mean Corpuscular Hemoglobin 28.4 pg (27.0-33.0); Mean Corpuscular Volume 86.9 fL (80.0-98.0); Mean Platelet Volume 11.1 fL (9.4-12.3); Monocytes Absolute Auto 0.4 X10*3/uL (0.1-1.2); Monocytes Percent Auto 2.4 % (2-11); Neutrophils Absolute Auto 15.8 x10*3/uL (2.0-8.3); Neutrophils Percent Auto 89.2 % (45-73); Platelet Count 276 X10*3/uL (160-400); Red Blood Count 5.49 X10*6/uL (4.20-5.50); Red Cell Distribution Width 14.2 % (11.0-16.0); White Blood Count 17.7 X10*3/uL (4.8-10.8)
[2024-04-25 07:07] LABS: Alanine Aminotransferase 34 U/L (0-31); Albumin Level 3.3 g/dL (3.5-5.0); Alkaline Phosphatase 68 U/L (39-117); Anion Gap 13 (12-20); Aspartate Amino Transferase 21 U/L (5-31); Bilirubin Total 0.6 mg/dL (0.0-1.0); Blood Urea Nitrogen 40 mg/dL (9-16); Calcium 8.5 mg/dL (8.4-10.2); Carbon Dioxide 26 mmol/L (22-29); Chloride 108 mmol/L (96-108); Creatinine Clr Calc Pharmacy 70.1; Estimated Glomerular Filt Rate > 60; Glucose Fasting 197 mg/dL (60-99); Potassium 4.1 mmol/L (3.3-5.1); Sodium 143 mmol/L (135-145); Total Protein 6.6 g/dL (6.5-8.0)
[2024-04-25 07:53] LABS: Glucose, Whole Blood 235 mg/dL (60-115)
[2024-04-25] MEDS: Nicotine 21 MG PATCH.TD24 TRANSDERMA (08:14)
[2024-04-25] MEDS: Empagliflozin 10 MG TABLET PO (08:15)
[2024-04-25] MEDS: allopurinoL 100 MG TABLET PO (08:15)
[2024-04-25] MEDS: Loratadine 10 MG TABLET PO (08:15)
[2024-04-25] MEDS: Pregabalin 100 MG CAPSULE PO ×3 (08:15→20:33)
[2024-04-25] MEDS: Sennosides 8.6 MG TABLET PO ×2 (08:15→20:34)
[2024-04-25] MEDS: Roflumilast 500 MCG TABLET PO (08:15)
[2024-04-25] MEDS: 0.9 % Sodium Chloride Flush 3 ML SYRINGE IVFLUSH ×3 (08:16→20:34)
[2024-04-25] MEDS: Insulin Lispro 100 UNIT/ML 3 ML VIAL SUBCUT ×5 (08:16→22:31)
[2024-04-25] MEDS: carvediloL 6.25 MG TABLET PO ×2 (08:18→20:34)
[2024-04-25] MEDS: Fluticasone/Umeclidinium/Vilanterol 100/62.5/25 BLST.W.DEV 1 PUFF INHALE (08:20)
[2024-04-25 11:33] LABS: Glucose, Whole Blood 334 mg/dL (60-115)
[2024-04-25] MEDS: Insulin Lispro 100 UNIT/ML 3 ML VIAL 7 UNIT SUBCUT ×2 (12:07→20:33)
--- NOTE | 2024-04-25 13:20 | HO.PM.IMPN ---
Subjective Subjective Date of Service: 04/25/24 Interval History: No acute issues overnight. Continues to improve Review of Systems Denies chest pain Admits shortness of breath with minimal exertion Denies nausea vomiting diarrhea Denies fever chills Physical Exam Vital Signs: Vital Signs: Last Vital Signs Temp 97.1 F 04/25/24 07:42 Pulse 92 04/25/24 11:22 Resp 8 L 04/25/24 11:22 BP 162/90 H 04/25/24 08:18 Pulse Ox 91 L 04/25/24 06:00 O2 Del Method Nasal Cannula 04/25/24 06:00 O2 Flow Rate 2 04/25/24 06:00 BMI result Body Mass Index 28.2 Const: Other: Awake alert no acute distress Resp: Other: Diminished at bases with scattered expiratory wheezes throughout Cardio: Other: No S4; positive S1-S2; no S3 murmurs rubs or gallops Extrem: Other: No edema bilaterally Objective Data Active Medications Acetaminophen (Acetaminophen 325 Mg Tablet) 650 mg PO Q6H PRN PRN Reason: Pain, Mild 1-3,fever,headache Last Admin: 04/21/24 17:45 Dose: 650 mg Documented By: RENEA Albuterol/Ipratropium (Albuterol/Iprat 2.5/0.5mg 3 Ml Ampul.Neb) 3 ml INHALE RQ4H WHILE AWAKE [facility] Last Admin: 04/25/24 11:20 Dose: 3 ml Documented By: CAROLINE Albuterol/Ipratropium (Albuterol/Iprat 2.5/0.5mg 3 Ml Ampul.Neb) 3 ml INHALE RQ4H WHILE AWAKE PRN PRN Reason: Shortness of Breath/Wheezing Last Admin: 04/25/24 06:26 Dose: 3 ml Documented By: DIOR Allopurinol (Allopurinol 100 Mg Tablet) 100 mg PO DAILY [facility] Last Admin: 04/25/24 08:15 Dose: 100 mg Documented By: ZEYNEP Aspirin (Aspirin Enteric Coated 81 Mg Tablet.) 81 mg PO BEDTIME [facility] Last Admin: 04/24/24 19:47 Dose: 81 mg Documented By: MARGUERITE Atorvastatin Calcium (Atorvastatin Calcium 80 Mg Tablet) 80 mg PO BEDTIME [facility]; Protocol Last Admin: 04/24/24 19:46 Dose: 80 mg Documented By: MARGUERITE Calcium Carbonate (Calcium Carbonate 750 Mg Tab.Chew) 750 mg PO Q4H PRN PRN Reason: Heartburn Carvedilol (Carvedilol 6.25 Mg Tablet) 6.25 mg PO BID [facility]; Protocol Last Admin: 04/25/24 08:18 Dose: 6.25 mg Documented By: ZEYNEP Docusate Sodium (Docusate Sodium 100 Mg Capsule) 100 mg PO BEDTIME [facility] Last Admin: 04/24/24 19:47 Dose: 100 mg Documented By: MARGUERITE Doxycycline Monohydrate (Doxycycline Monohydrate 100 Mg Capsule) 100 mg PO Q12H [facility] Last Admin: 04/25/24 04:21 Dose: 100 mg Documented By: MARGUERITE Empagliflozin (Empagliflozin 10 Mg Tablet) 10 mg PO DAILY [facility] Last Admin: 04/25/24 08:15 Dose: 10 mg Documented By: ZEYNEP Enoxaparin Sodium (Enoxaparin Sodium 40 Mg/0.4 Ml Syringe) 40 mg SUBCUT Q24H [facility] Last Admin: 04/24/24 16:48 Dose: 40 mg Documented By: SHUKRI Fluticasone Propionate (Fluticasone Propionate Nasal 16 Gm [place]) 1 spray NOSTRIL-B DAILY PRN PRN Reason: Congestion Fluticasone/Umeclidinium/Vilanterol (Fluticasone/Umeclidinium/Vilanterol 100/62.5/25 Blst.W.Dev) 1 puff INHALE RDAILY [facility] Last Admin: 04/25/24 08:20 Dose: 1 puff Documented By: ZACHERY Glucose (Glucose Gel 15 Gm Gel..Gram.) 15 gm PO Q15M PRN; Protocol PRN Reason: per Hypoglycemia Standing Ord. Guaifenesin/Dextromethorphan (Guaifenesin Dm 200/20/10 Ml 10 Ml Syrup) 10 ml PO Q4H PRN PRN Reason: Cough Last Admin: 04/24/24 19:44 Dose: 10 ml Documented By: MARGUERITE Dextrose (D10) 250 mls @ 750 mls/hr IV Q15M PRN; Protocol PRN Reason: per Hypoglycemia Standing Ord. Insulin Glargine (Insulin Glargine,Hum.Rec.Anlog 100 Unit/Ml 10 Ml Vial) 25 unit SUBCUT BEDTIME [facility] Last Admin: 04/24/24 21:45 Dose: 25 unit Documented By: MARGUERITE Insulin Human Lispro (Insulin Lispro 100 Unit/Ml 3 Ml Vial) 0 unit SUBCUT QIDACHS [facility]; Protocol Last Admin: 04/25/24 12:07 Dose: 10 unit Documented By: ZEYNEP Insulin Human Lispro (Insulin Lispro 100 Unit/Ml 3 Ml Vial) 7 unit SUBCUT QIDACHS [facility] Last Admin: 04/25/24 12:07 Dose: 7 unit Documented By: ZEYNEP Levothyroxine Sodium (Levothyroxine Sodium 112 Mcg Tablet) 112 mcg PO DAILY@0600 [facility] Last Admin: 04/25/24 04:21 Dose: 112 mcg Documented By: MARGUERITE Loratadine (Loratadine 10 Mg Tablet) 10 mg PO DAILY [facility] Last Admin: 04/25/24 08:15 Dose: 10 mg Documented By: ZEYNEP Magnesium Hydroxide (Milk Of Magnesia 30 Ml Oral.Susp) 30 ml PO DAILY PRN PRN Reason: Constipation Last Admin: 04/24/24 19:44 Dose: 30 ml Documented By: MARGUERITE Melatonin (Melatonin 3 Mg Tablet) 6 mg PO BEDTIME PRN PRN Reason: Insomnia Methocarbamol (Methocarbamol 750 Mg Tablet) 750 mg PO Q8H PRN PRN Reason: neuropathy Methylprednisolone Sodium Succinate (Methylprednisolone Sod Succ 125 Mg/2 Ml Vial) 60 mg IVPUSH Q6H [facility] Last Admin: 04/25/24 12:08 Dose: 60 mg Documented By: ZEYNEP Montelukast Sodium (Montelukast Sodium 10 Mg Tablet) 10 mg PO BEDTIME [facility] Last Admin: 04/24/24 19:48 Dose: 10 mg Documented By: MARGUERITE Naloxone HCl (Naloxone Hcl Nasal 4 Mg Hiddenite) 4 mg NOSTRILALT ONCE PRN PRN Reason: Opioid Overdose Nicotine (Nicotine 21 Mg Patch.Td24) 21 mg TRANSDERMA DAILY [facility] Last Admin: 04/25/24 08:14 Dose: 21 mg Documented By: ZEYNEP Omeprazole (Omeprazole 20 Mg Capsule.Dr) 20 mg PO BID@0630,1630 [facility] Last Admin: 04/25/24 05:55 Dose: 20 mg Documented By: MARGUERITE Ondansetron HCl (Ondansetron Hcl 4 Mg/2 Ml Vial) 4 mg IVPUSH Q8H PRN PRN Reason: Nausea and Vomiting Oxycodone HCl (Oxycodone Hcl Immed Release 5 Mg Tablet) 7.5 mg PO Q6H PRN PRN Reason: Pain, Severe (Pain Scale 7-10) Last Admin: 04/25/24 12:08 Dose: 7.5 mg Documented By: ZEYNEP Pregabalin (Pregabalin 100 Mg Capsule) 100 mg PO TID [facility] Last Admin: 04/25/24 08:15 Dose: 100 mg Documented By: ZEYNEP Roflumilast (Roflumilast 500 Mcg Tablet) 500 mcg PO DAILY [facility] Last Admin: 04/25/24 08:15 Dose: 500 mcg Documented By: ZEYNEP Senna (Sennosides 8.6 Mg Tablet) 8.6 mg PO BID [facility] Last Admin: 04/25/24 08:15 Dose: 8.6 mg Documented By: ZEYNEP Sodium Chloride (0.9 % Sodium Chloride Flush 3 Ml Syringe) 3 ml IVFLUSH QSHIFT [facility] Last Admin: 04/25/24 08:16 Dose: 3 ml Documented By: ZEYNEP Labs 04/25/24 06:05 04/25/24 06:05 Labs: Laboratory Results - last 24 hr 04/24/24 04/24/24 04/24/24 16:21 19:29 21:09 MCV MCH MCHC RDW Plt Count MPV Immature Gran % (Auto) Neut % (Auto) Lymph % (Auto) [place] % (Auto) Eos % (Auto) Baso % (Auto) Lymph # (Auto) [place] # (Auto) Eos # (Auto) Baso # (Auto) Abs Immat Gran (auto) Absolute Neuts (auto) Absolute Nucleated RBC Nucleated RBC % (auto) Anion Gap Estim Creat Clear Calc Estimated GFR POC Glucose 333 H 393 H* 328 H Fasting Glucose Calcium Total Bilirubin AST ALT Alkaline Phosphatase Total Protein Albumin 04/25/24 04/25/24 04/25/24 06:05 07:46 11:28 MCV 86.9 MCH 28.4 MCHC 32.7 RDW 14.2 Plt Count 276 MPV 11.1 Immature Gran % (Auto) 1.0 H Neut % (Auto) 89.2 H Lymph % (Auto) 7.3 L [place] % (Auto) 2.4 Eos % (Auto) 0.0 Baso % (Auto) 0.1 Lymph # (Auto) 1.3 [place] # (Auto) 0.4 Eos # (Auto) 0.0 Baso # (Auto) 0.0 Abs Immat Gran (auto) 0.17 H Absolute Neuts (auto) 15.8 H Absolute Nucleated RBC 0.000 Nucleated RBC % (auto) 0.0 Anion Gap 13 Estim Creat Clear Calc 70.1 Estimated GFR > 60 POC Glucose 235 H 334 H Fasting Glucose 197 H Calcium 8.5 Total Bilirubin 0.6 AST 21 ALT 34 H Alkaline Phosphatase 68 Total Protein 6.6 Albumin 3.3 L Assessment and Plan (1) COPD exacerbation: Status: Acute (2) Influenza A: Status: Acute Plan 63-year-old female with a PMH significant for?CAD, insulin-dependent type 2 diabetes, COPD recently started on 2L home O2, HTN, hypothyroidism, GERD, and gout who presents to the ED with?increased SOB productive and difficulty breathing. Pt will be admitted to the hospital for treatment and further evaluation of acute on chronic hypoxic respiratory failure in the setting of COPD exacerbation. 1.Acute on chronic hypoxic respiratory failure in the setting of COPD exacerbation -positive for RSV/ flu A, -CXR negative for pneumonia -increase Solu-Medrol to 60 mg q.6 hours... Switch to p.o. upon discharge -DuoNebs as ordered -titrate O2 to maintain sats greater than equal to 92% -pulmonary rehab 2.CAD -stable and well compensated -continue current therapies 3.HTN -acceptable control on current therapies -adjust as indicated 4.Insulin-dependent type 2 diabetes -acceptable control on current therapies. . . Higher given steroids -lispro correctional scale -adjust as indicated Lovenox Full code ongoing need for hospilisation:Acute on chronic hypoxic respiratory failure in the setting of COPD exacerbation-needs nebs,steriods ,oxygen weaning ,pulm eval. Quality Stroke Does the patient have a stroke diagnosis?: No VTE Prior VTE?: No VTE Risk Level:: Medical - moderate - high VTE Device Contraindication: Treatment Not Indicated VTE Drug Contraindication: N/A - Med Ordered
--- NOTE | 2024-04-25 13:32 | P.CDIM_ITS ---
PROVIDER RESPONSE TEXT: To clarify, the appropriate diagnosis supported by the clinical indicators: Diabetes mellitus Type 2 with hyperglycemia: probable QUERY TEXT: PHYSICIAN'S DOCUMENTATION REQUEST Date of Query: 04/25/2024 08:22 AM EST Patient Name: Marita Zapata Admit Date: 04/21/2024 Dear Brennan Irvin DO, A review of the medical record indicates additional documentation may be needed. Please review below and update the documentation accordingly. Clinical Indicators: LABS: POC glucose 353 H 393 H Insulin Based on the above, is there a diagnosis that correlates with these lab findings: Diabetes mellitus Type 2 with hyperglycemia possible, probable, resolved, suspected etc. Labs indicate a diagnosis of (please specify) Other (explain) Clinically unable to determine (explain) Thank you, Ratna Kwon, CCS, CDIS Use of terms such as suspected, likely, concern for, or probable (associated with a specific diagnosi s that is being evaluated, monitored, or treated as if it exists) are acceptable and can be coded in the inpatient se tting, when documented at the time of discharge. Please use your independent medical judgment in providing your response. THIS QUERY IS PART OF THE PERMANENT MEDICAL RECORD
--- NOTE | 2024-04-25 16:04 | MHC.CM.PN ---
EMR REVIEWED AND PER MD ROUNDS, PT IS REQUESTING PULMONARY REHAB. [facility]W PT AND REFERRALS SENT. AWAITING RESPONSES. CM WILL CONTINUE TO FOLLOW.
[2024-04-25 16:43] LABS: Glucose, Whole Blood 241 mg/dL (60-115)
[2024-04-25] MEDS: Enoxaparin Sodium 40 MG/0.4 ML SYRINGE SUBCUT (17:32)
[2024-04-25 20:20] LABS: Glucose, Whole Blood 412 mg/dL (60-115)
[2024-04-25] MEDS: Insulin Glargine,Hum.rec.anlog 100 UNIT/ML 10 ML VIAL 25 UNIT SUBCUT (20:32)
[2024-04-25] MEDS: guaiFENesin DM 200/20/10 ML 10 ML SYRUP PO (20:33)
[2024-04-25] MEDS: Milk of Magnesia 30 ML ORAL.SUSP PO (20:33)
[2024-04-25] MEDS: Docusate Sodium 100 MG CAPSULE PO (20:33)
[2024-04-25] MEDS: Aspirin Enteric Coated 81 MG TABLET.DR PO (20:33)
[2024-04-25] MEDS: Atorvastatin Calcium 80 MG TABLET PO (20:33)
[2024-04-25] MEDS: Montelukast Sodium 10 MG TABLET PO (20:34)
[2024-04-25 22:23] LABS: Glucose, Whole Blood 339 mg/dL (60-115)
[2024-04-26] VITALS (11 sets, daily range): BP systolic 136–145; BP diastolic 63–80; PULSE 71–103; RESP 18–20; TEMP 36.1–36.6; O2SAT 88–96
[2024-04-26] MEDS: methylPREDNISolone Sod Succ 125 MG/2 ML VIAL 60 MG IVPUSH ×4 (00:25→17:40)
[2024-04-26] MEDS: oxyCODONE HCl Immed Release 5 MG TABLET 7.5 MG PO ×4 (00:25→21:01)
[2024-04-26] MEDS: Albuterol/Iprat 2.5/0.5MG 3 ML AMPUL.NEB INHALE ×5 (02:36→19:41)
[2024-04-26] MEDS: Doxycycline Monohydrate 100 MG CAPSULE PO ×2 (05:11→17:40)
[2024-04-26] MEDS: Levothyroxine Sodium 112 MCG TABLET PO (05:11)
[2024-04-26] MEDS: Omeprazole 20 MG CAPSULE.DR PO ×2 (06:18→16:42)
[2024-04-26 07:43] LABS: Glucose, Whole Blood 194 mg/dL (60-115)
[2024-04-26] MEDS: Fluticasone/Umeclidinium/Vilanterol 100/62.5/25 BLST.W.DEV 1 PUFF INHALE (09:09)
[2024-04-26] MEDS: Insulin Lispro 100 UNIT/ML 3 ML VIAL SUBCUT ×4 (09:39→21:05)
[2024-04-26] MEDS: Nicotine 21 MG PATCH.TD24 TRANSDERMA (09:40)
[2024-04-26] MEDS: 0.9 % Sodium Chloride Flush 3 ML SYRINGE IVFLUSH ×3 (09:40→21:02)
[2024-04-26] MEDS: Sennosides 8.6 MG TABLET PO ×2 (09:41→21:01)
[2024-04-26] MEDS: carvediloL 6.25 MG TABLET PO ×2 (09:41→21:01)
[2024-04-26] MEDS: Pregabalin 100 MG CAPSULE PO ×3 (09:41→21:02)
[2024-04-26] MEDS: Roflumilast 500 MCG TABLET PO (09:41)
[2024-04-26] MEDS: guaiFENesin DM 200/20/10 ML 10 ML SYRUP PO ×2 (09:41→21:01)
[2024-04-26] MEDS: allopurinoL 100 MG TABLET PO (09:42)
[2024-04-26] MEDS: Empagliflozin 10 MG TABLET PO (09:42)
[2024-04-26] MEDS: Loratadine 10 MG TABLET PO (09:42)
--- NOTE | 2024-04-26 11:01 | PM.DS ---
DS: Providers Provider Date of Service: 04/26/24 Date of admission: 04/21/24 16:11 Date of discharge: 04/26/24 Primary care physician: Bobby David MD Consults: 04/22/24 13:56 Consult to Pulmonology Routine Consulting Provider: [facility] Reason for consultation: copd excerebation Has provider been notified: No DS: Diagnosis Discharge Diagnosis (1) COPD exacerbation: Status: Acute (2) Influenza A: Status: Acute DS: Summary Hospital Course Hospital Course: 63-year-old female with a PMH significant for?CAD, insulin-dependent type 2 diabetes, COPD recently started on 2L home O2, HTN, hypothyroidism, GERD, and gout who presents to the ED with?increased SOB productive and difficulty breathing. The pt has had 2 recent prior hospitalizations for similar symptoms, on 04/07-04/11 for hypoxia and COPD exacerbation from RSV infection and most recently being discharged 2 days prior after being admitted for acute hypoxic respiratory failure setting of COPD exacerbation from flu infection. Pt reports she felt well after last discharge and had no difficulty breathing or ambulating around her home. Yesterday however pt had increased difficulty breathing with exertion, which significantly worsened this morning. Pt reported ambulated to the bathroom and needed to have help getting back to bed despite resting for 15 minutes. Was seen by PT today who noted pt was desatting into the low 80s with ambulation on home O2 and recommended coming to the ED for further evaluation. Pt denies lower extremity edema. No orthopnea. Denies fever, chills. Cough at baseline. Denies chest pain/pressure, palpitations. No nausea, vomiting, abdominal pain. Pt is currently attempting to quit smoking, though recently was smoking approximately half a pack of cigarettes daily. In the ED pt was tachycardic to 103, tachypneic up to 26, and hypertensive to 144/83, originally satting at 83% on home 2 L NC. Labs were significant for AST 44 and ALT 56, otherwise grossly unremarkable and around baseline for pt. Chronic leukocytosis from steroids at 22.9. Stable H&H. No significant electrolyte abnormalities. Renal function baseline. BNP WNL. Initial troponin WNL. CXR showed no acute cardiopulmonary disease or interval change since prior. EKG demonstrated normal sinus rhythm without significant ST elevations or depressions, similar to prior. Pt was treated with DuoNebs. Pt will be admitted to the hospital for treatment and further evaluation of acute on chronic hypoxic respiratory failure in the setting of COPD exacerbation. [facility] Patient was admitted general medical floor and started on doxycycline. She was also started on pulse dose steroids and DuoNebs. Of note patient has not positive for influenza a and RSV prior to this hospitalization. Continued to do well and was seen by pulmonology who recommended pulmonary rehab. At this time she is medically acceptable for same Time Attestation Discharge Coordination Time (in mins): 35 Quality: Safe Use of Opioids Does Pt have an Active Cancer Diagnosis on the Problem List?: No Quality: Stroke Does the patient have a stroke diagnosis?: No Physical Exam Vital Signs: Vital Signs: Last Vital Signs Temp 96.9 F 04/26/24 07:33 Pulse 103 H 04/26/24 09:47 Resp 18 04/26/24 09:10 BP 145/80 H 04/26/24 07:33 Pulse Ox 93 04/26/24 07:33 O2 Del Method Nasal Cannula 04/26/24 07:33 O2 Flow Rate 2.0 04/26/24 07:33 BMI result Body Mass Index 28.2 Const: Other: Awake alert no acute distress Resp: Other: Diminished at bases with scattered expiratory wheezes throughout Cardio: Other: No S4; positive S1-S2; no S3 murmurs rubs or gallops Extrem: Other: No edema bilaterally DS: Data Data Completed and Pending Labs on day of discharge: Laboratory Results - last 24 hr 04/25/24 04/25/24 04/25/24 11:28 16:36 20:15 POC Glucose 334 H 241 H 412 H* 04/25/24 04/26/24 22:19 07:37 POC Glucose 339 H 194 H Discharge Plan Discharge Patient Disposition: Xfer SNF Discharge Diagnosis: COPD exacerbation secondary to RSV Referrals: Name,MD Bobby [Primary Care Provider] - 1 Week Discharge Medications: New ipratropium-albuterol 0.5 mg-3 mg(2.5 mg base)/3 mL Solution For Nebulization 3 ml inhalation RQ4H WHILE AWAKE PRN (Reason: Shortness Of Breath/Wheezing) Qty: 270 0RF doxycycline monohydrate 100 mg Capsule 100 mg PO Q12H Qty: 6 0RF insulin glargine [Lantus U-100 Insulin] 100 unit/mL Solution 35 unit subcut BEDTIME Qty: 10 0RF insulin lispro [Admelog U-100 Insulin lispro] 100 unit/mL Solution See Protocol subcut QIDACHS Qty: 100 0RF Protocol: Insulin Resistant 1st 24 hours Less than or equal to 110 ---- Give (units): 0 111 to 150 Give (units): 2 151 to 200 Give (units): 4 201 to 250 Give (units): 6 251 to 300 Give (units): 8 301 to 350 Give (units): 10 Greater than 350 Give (units): 12 Call MD if Blood Glucose > : 350 insulin lispro [Admelog U-100 Insulin lispro] 100 unit/mL Solution 7 unit subcut QIDACHS Qty: 100 0RF Continued albuterol sulfate [Ventolin HFA] 90 mcg/actuation HFA aerosol inhaler 2 puff inhalation Q4-6H PRN (Reason: for wheezing) Qty: 18 11RF roflumilast 500 mcg tablet 500 mcg PO DAILY Qty: 30 11RF docusate sodium 100 mg capsule 1 cap PO BEDTIME prednisone 10 mg tablet See Taper PO DAILY Taper: Prednisone 40 mg daily for 2 Days and 0 Hour 30 mg daily for 3 Days and 0 Hour 20 mg daily for 3 Days and 0 Hour 10 mg daily for 3 Days and 0 Hour insulin aspart U-100 [Novolog FlexPen U-100 Insulin] 100 unit/mL (3 mL) insulin pen 6 - 10 sliding scale dose subcut TIDAC Protocol: Insulin Correction Scale Less than or equal to 110 ---- Give (units): 0 111 to 150 Give (units): 0 151 to 200 Give (units): 2 201 to 250 Give (units): 4 251 to 300 Give (units): 6 301 to 350 Give (units): 8 Greater than 350 Give (units): 10 Call MD if Blood Glucose > : 350 Combivent Respimat 20-100 mcg/actuation mist 2 puff INHALATION BID Trulicity 1.5 mg/0.5 mL pen injector 1.5 mg subcut WE@0900 Trelegy Ellipta 100-62.5-25 mcg blister with device 1 ea INHALATION DAILY Dupixent Pen 300 mg/2 mL pen injector 300 mg SUBCUT Q2W fluticasone propionate [Flonase] 50 mcg/actuation [place],Suspension 1 spray INTRANASAL DAILY PRN (Reason: Congestion) Rx Instructions: administer into each nostril ipratropium-albuterol 0.5 mg-3 mg(2.5 mg base)/3 mL solution for nebulization 3 ml inhalation QID PRN (Reason: Shortness Of Breath Or Wheezing) sennosides [senna] 8.6 mg Tablet 8.6 mg PO BID lidocaine 5 % adhesive patch,medicated 1 patch topical DAILY PRN (Reason: pain) insulin glargine [Lantus Solostar U-100 Insulin] 100 unit/mL (3 mL) insulin pen 35 unit SUBCUT BID Rx Instructions: PER PATIENT, MAY REQUIRE HIGHER DOSES WHEN ON STEROIDS levothyroxine 112 mcg tablet 112 mcg PO DAILY@0600 pregabalin 100 mg capsule 100 mg PO TID omeprazole 20 mg capsule,delayed release(DR/EC) 20 mg PO BID@0630,1630 aspirin 81 mg tablet,delayed release (DR/EC) 81 mg PO BEDTIME carvedilol 6.25 mg tablet 6.25 mg PO BID atorvastatin 80 mg tablet 80 mg PO BEDTIME Protocol: Hold for SBP< HOLD for SBP < : 90 montelukast 10 mg tablet 10 mg PO BEDTIME cetirizine 10 mg tablet 10 mg PO DAILY PRN (Reason: allergies) (DME) lancets [TRUEplus Lancets] 33 gauge misc See Rx Instructions .ROUTE TID Qty: 100 Rx Instructions: As directed (DME) FreeStyle Lite Strips Strip See Rx Instructions .ROUTE TID Qty: 10 Rx Instructions: As directed naloxone 4 mg/actuation spray,non-aerosol 1 spray intranasal ONCE PRN (Reason: Opioid Overdose) oxycodone-acetaminophen 7.5-325 mg tablet 1 tab PO Q6H PRN (Reason: severe pain) nicotine 21 mg/24 hr patch 24 hour 1 patch transdermal DAILY 28 Days Qty: 28 6RF methocarbamol 750 mg tablet 750 mg PO Q8H PRN (Reason: neuropathy) (DME) nebulizers Misc See Rx Instructions .Route Rx Instructions: As directed (DME) HANK Elbow Brace Misc See Rx Instructions .Route Qty: 1 0RF Rx Instructions: As directed Jardiance 10 mg tablet 10 mg PO DAILY allopurinol 100 mg tablet 100 mg PO DAILY 90 Days Qty: 90 1RF Diet: Advance to usual diet Activity on Discharge: As tolerated Stand Alone Forms: Patient Portal Discharge page Print Language: Marshallese Care Plan Goals: Complete doxycycline b.i.d. as ordered. Prednisone taper as ordered Health Concerns: Further plans as per receiving facility Plan of Treatment: Pulmonary rehab as per facility Assessment: See discharge summary
--- NOTE | 2024-04-26 11:10 | P.PNIM_ITS ---
Subjective Subjective Date of Service: 04/26/24 Interval History: No acute issues overnight. Continues to improve Review of Systems Denies chest pain Admits shortness of breath with minimal exertion Denies nausea vomiting diarrhea Denies fever chills Physical Exam 2 Vital Signs: Vital Signs: Last Vital Signs Temp 96.9 F 04/26/24 07:33 Pulse 103 H 04/26/24 09:47 Resp 18 04/26/24 09:10 BP 145/80 H 04/26/24 07:33 Pulse Ox 93 04/26/24 07:33 O2 Del Method Nasal Cannula 04/26/24 07:33 O2 Flow Rate 2.0 04/26/24 07:33 BMI result Body Mass Index 28.2 Const: Other: Awake alert no acute distress Resp: Other: Diminished at bases with scattered expiratory wheezes throughout Cardio: Other: No S4; positive S1-S2; no S3 murmurs rubs or gallops Extrem: Other: No edema bilaterally Objective Data Active Medications Acetaminophen (Acetaminophen 325 Mg Tablet) 650 mg PO Q6H PRN PRN Reason: Pain, Mild 1-3,fever,headache Last Admin: 04/21/24 17:45 Dose: 650 mg Documented By: RENEA Albuterol/Ipratropium (Albuterol/Iprat 2.5/0.5mg 3 Ml Ampul.Neb) 3 ml INHALE RQ4H WHILE AWAKE [facility] Last Admin: 04/26/24 09:10 Dose: 3 ml Documented By: ZACHERY Albuterol/Ipratropium (Albuterol/Iprat 2.5/0.5mg 3 Ml Ampul.Neb) 3 ml INHALE RQ4H WHILE AWAKE PRN PRN Reason: Shortness of Breath/Wheezing Last Admin: 04/26/24 02:36 Dose: 3 ml Documented By: LINH Allopurinol (Allopurinol 100 Mg Tablet) 100 mg PO DAILY [facility] Last Admin: 04/26/24 09:42 Dose: 100 mg Documented By: JOSÉ MIGUEL Aspirin (Aspirin Enteric Coated 81 Mg Tablet.) 81 mg PO BEDTIME [facility] Last Admin: 04/25/24 20:33 Dose: 81 mg Documented By: MARGUERITE Atorvastatin Calcium (Atorvastatin Calcium 80 Mg Tablet) 80 mg PO BEDTIME [facility]; Protocol Last Admin: 04/25/24 20:33 Dose: 80 mg Documented By: MARGUERITE Calcium Carbonate (Calcium Carbonate 750 Mg Tab.Chew) 750 mg PO Q4H PRN PRN Reason: Heartburn Carvedilol (Carvedilol 6.25 Mg Tablet) 6.25 mg PO BID [facility]; Protocol Last Admin: 04/26/24 09:41 Dose: 6.25 mg Documented By: JOSÉ MIGUEL Docusate Sodium (Docusate Sodium 100 Mg Capsule) 100 mg PO BEDTIME [facility] Last Admin: 04/25/24 20:33 Dose: 100 mg Documented By: MARGUERITE Doxycycline Monohydrate (Doxycycline Monohydrate 100 Mg Capsule) 100 mg PO Q12H [facility] Last Admin: 04/26/24 05:11 Dose: 100 mg Documented By: MARGUERITE Empagliflozin (Empagliflozin 10 Mg Tablet) 10 mg PO DAILY [facility] Last Admin: 04/26/24 09:42 Dose: 10 mg Documented By: JOSÉ MIGUEL Enoxaparin Sodium (Enoxaparin Sodium 40 Mg/0.4 Ml Syringe) 40 mg SUBCUT Q24H [facility] Last Admin: 04/25/24 17:32 Dose: 40 mg Documented By: ZEYNEP Fluticasone Propionate (Fluticasone Propionate Nasal 16 Gm [place]) 1 spray NOSTRIL-B DAILY PRN PRN Reason: Congestion Fluticasone/Umeclidinium/Vilanterol (Fluticasone/Umeclidinium/Vilanterol 100/62.5/25 Blst.W.Dev) 1 puff INHALE RDAILY [facility] Last Admin: 04/26/24 09:09 Dose: 1 puff Documented By: ZACHERY Glucose (Glucose Gel 15 Gm Gel..Gram.) 15 gm PO Q15M PRN; Protocol PRN Reason: per Hypoglycemia Standing Ord. Guaifenesin/Dextromethorphan (Guaifenesin Dm 200/20/10 Ml 10 Ml Syrup) 10 ml PO Q4H PRN PRN Reason: Cough Last Admin: 04/26/24 09:41 Dose: 10 ml Documented By: JOSÉ MIGUEL Dextrose (D10) 250 mls @ 750 mls/hr IV Q15M PRN; Protocol PRN Reason: per Hypoglycemia Standing Ord. Insulin Glargine (Insulin Glargine,Hum.Rec.Anlog 100 Unit/Ml 10 Ml Vial) 35 unit SUBCUT BEDTIME [facility] Insulin Human Lispro (Insulin Lispro 100 Unit/Ml 3 Ml Vial) 0 unit SUBCUT QIDACHS [facility]; Protocol Last Admin: 04/26/24 09:39 Dose: 4 unit Documented By: JOSÉ MIGUEL Insulin Human Lispro (Insulin Lispro 100 Unit/Ml 3 Ml Vial) 7 unit SUBCUT QIDACHS [facility] Last Admin: 04/26/24 09:03 Dose: Not Given Documented By: JOSÉ MIGUEL Non-Admin Reason: Physician Held Med Levothyroxine Sodium (Levothyroxine Sodium 112 Mcg Tablet) 112 mcg PO DAILY@0600 [facility] Last Admin: 04/26/24 05:11 Dose: 112 mcg Documented By: MARGUERITE Loratadine (Loratadine 10 Mg Tablet) 10 mg PO DAILY [facility] Last Admin: 04/26/24 09:42 Dose: 10 mg Documented By: JOSÉ MIGUEL Magnesium Hydroxide (Milk Of Magnesia 30 Ml Oral.Susp) 30 ml PO DAILY PRN PRN Reason: Constipation Last Admin: 04/25/24 20:33 Dose: 30 ml Documented By: MARGUERITE Melatonin (Melatonin 3 Mg Tablet) 6 mg PO BEDTIME PRN PRN Reason: Insomnia Methocarbamol (Methocarbamol 750 Mg Tablet) 750 mg PO Q8H PRN PRN Reason: neuropathy Methylprednisolone Sodium Succinate (Methylprednisolone Sod Succ 125 Mg/2 Ml Vial) 60 mg IVPUSH Q6H [facility] Last Admin: 04/26/24 06:18 Dose: 60 mg Documented By: MARGUERITE Montelukast Sodium (Montelukast Sodium 10 Mg Tablet) 10 mg PO BEDTIME [facility] Last Admin: 04/25/24 20:34 Dose: 10 mg Documented By: MARGUERITE Naloxone HCl (Naloxone Hcl Nasal 4 Mg [place]) 4 mg NOSTRILALT ONCE PRN PRN Reason: Opioid Overdose Nicotine (Nicotine 21 Mg Patch.Td24) 21 mg TRANSDERMA DAILY [facility] Last Admin: 04/26/24 09:40 Dose: 21 mg Documented By: JOSÉ MIGUEL Omeprazole (Omeprazole 20 Mg Capsule.) 20 mg PO BID@0630,1630 [facility] Last Admin: 04/26/24 06:18 Dose: 20 mg Documented By: MARGUERITE Ondansetron HCl (Ondansetron Hcl 4 Mg/2 Ml Vial) 4 mg IVPUSH Q8H PRN PRN Reason: Nausea and Vomiting Oxycodone HCl (Oxycodone Hcl Immed Release 5 Mg Tablet) 7.5 mg PO Q6H PRN PRN Reason: Pain, Severe (Pain Scale 7-10) Last Admin: 04/26/24 06:18 Dose: 7.5 mg Documented By: MARGUERITE Pregabalin (Pregabalin 100 Mg Capsule) 100 mg PO TID [facility] Last Admin: 04/26/24 09:41 Dose: 100 mg Documented By: JOSÉ MIGUEL Roflumilast (Roflumilast 500 Mcg Tablet) 500 mcg PO DAILY [facility] Last Admin: 04/26/24 09:41 Dose: 500 mcg Documented By: JOSÉ MIGUEL Senna (Sennosides 8.6 Mg Tablet) 8.6 mg PO BID [facility] Last Admin: 04/26/24 09:41 Dose: 8.6 mg Documented By: JOSÉ MIGUEL Sodium Chloride (0.9 % Sodium Chloride Flush 3 Ml Syringe) 3 ml IVFLUSH QSHIFT [facility] Last Admin: 04/26/24 09:40 Dose: 3 ml Documented By: JOSÉ MIGUEL Labs 04/25/24 06:05 04/25/24 06:05 Labs: Laboratory Results - last 24 hr 04/25/24 04/25/24 04/25/24 11:28 16:36 20:15 POC Glucose 334 H 241 H 412 H* 04/25/24 04/26/24 22:19 07:37 POC Glucose 339 H 194 H Assessment and Plan (1) COPD exacerbation: Status: Acute (2) Influenza A: Status: Acute Plan 63-year-old female with a PMH significant for?CAD, insulin-dependent type 2 diabetes, COPD recently started on 2L home O2, HTN, hypothyroidism, GERD, and gout who presents to the ED with?increased SOB productive and difficulty breathing. Pt will be admitted to the hospital for treatment and further evaluation of acute on chronic hypoxic respiratory failure in the setting of COPD exacerbation. 1.Acute on chronic hypoxic respiratory failure in the setting of COPD exacerbation -positive for RSV/ flu A, (prior to this admission) -increase Solu-Medrol to 60 mg q.6 hours... Switch to p.o. upon discharge -DuoNebs as ordered -titrate O2 to maintain sats greater than equal to 92% -pulmonary rehab 2.CAD -stable and well compensated -continue current therapies 3.HTN -acceptable control on current therapies -adjust as indicated 4.Insulin-dependent type 2 diabetes -acceptable control on current therapies. . . Higher given steroids -lispro correctional scale -adjust as indicated Lovenox Full code ongoing need for hospilisation:Acute on chronic hypoxic respiratory failure in the setting of COPD exacerbation-needs nebs,steriods ,oxygen weaning ,pulm eval. Quality Stroke Does the patient have a stroke diagnosis?: No VTE Prior VTE?: No VTE Risk Level:: Medical - moderate - high VTE Device Contraindication: Treatment Not Indicated VTE Drug Contraindication: N/A - Med Ordered
[2024-04-26] MEDS: Insulin Lispro 100 UNIT/ML 3 ML VIAL 7 UNIT SUBCUT ×3 (12:27→21:04)
--- NOTE | 2024-04-26 13:43 | MHC.CM.PN ---
[facility] UNABLE TO ACCEPT. [facility] HAS OFFERED A BED PENDING AUTH, THEY WILL BEGIN THE AUTH PROCESS WITH [facility]. PT ACCEPTS BED OFFER AND MD UPDATED. CM WILL AWAIT AUTH FOR ADMISSION.
[2024-04-26 16:13] LABS: Glucose, Whole Blood 404 mg/dL (60-115)
[2024-04-26 16:16] LABS: Glucose, Whole Blood 233 mg/dL (60-115)
[2024-04-26] MEDS: Enoxaparin Sodium 40 MG/0.4 ML SYRINGE SUBCUT (16:42)
[2024-04-26 20:12] LABS: Glucose, Whole Blood 239 mg/dL (60-115)
[2024-04-26] MEDS: Aspirin Enteric Coated 81 MG TABLET.DR PO (21:01)
[2024-04-26] MEDS: Montelukast Sodium 10 MG TABLET PO (21:02)
[2024-04-26] MEDS: Docusate Sodium 100 MG CAPSULE PO (21:02)
[2024-04-26] MEDS: Atorvastatin Calcium 80 MG TABLET PO (21:02)
[2024-04-26] MEDS: Insulin Glargine,Hum.rec.anlog 100 UNIT/ML 10 ML VIAL 35 UNIT SUBCUT (21:04)
[2024-04-27] VITALS (11 sets, daily range): BP systolic 128–169; BP diastolic 70–83; PULSE 68–80; RESP 16–18; TEMP 36.1–36.6; O2SAT 93–96
[2024-04-27] MEDS: methylPREDNISolone Sod Succ 125 MG/2 ML VIAL 60 MG IVPUSH ×2 (00:37→06:02)
[2024-04-27] MEDS: oxyCODONE HCl Immed Release 5 MG TABLET 7.5 MG PO ×3 (04:00→22:10)
[2024-04-27] MEDS: Doxycycline Monohydrate 100 MG CAPSULE PO ×2 (06:03→16:53)
[2024-04-27] MEDS: Omeprazole 20 MG CAPSULE.DR PO ×2 (06:03→16:45)
[2024-04-27] MEDS: Levothyroxine Sodium 112 MCG TABLET PO (06:03)
[2024-04-27 07:01] LABS: MANUAL DIFF FLAG NO
[2024-04-27 07:08] LABS: Basophils Percent Auto 0.2 % (0-2); Hematocrit 45.6 % (37.0-47.0); Hemoglobin 15.2 g/dl (12.0-16.0); Imm Gran Abs Auto 0.16 X10*3/uL (0.00-0.03); Lymphocytes Absolute Auto 1.2 X10*3/uL (1.2-4.9); Lymphocytes Percent Auto 7.7 % (20-40); Mean Corpuscular HGB Conc 33.3 g/dl (31.0-35.0); Mean Corpuscular Hemoglobin 28.8 pg (27.0-33.0); Mean Corpuscular Volume 86.5 fL (80.0-98.0); Mean Platelet Volume 11.1 fL (9.4-12.3); Monocytes Absolute Auto 0.4 X10*3/uL (0.1-1.2); Monocytes Percent Auto 2.2 % (2-11); Neutrophils Absolute Auto 14.1 x10*3/uL (2.0-8.3); Neutrophils Percent Auto 88.9 % (45-73); Platelet Count 240 X10*3/uL (160-400); Red Blood Count 5.27 X10*6/uL (4.20-5.50); Red Cell Distribution Width 14.4 % (11.0-16.0); White Blood Count 15.9 X10*3/uL (4.8-10.8)
[2024-04-27 07:27] LABS: Alanine Aminotransferase 33 U/L (0-31); Albumin Level 2.9 g/dL (3.5-5.0); Anion Gap 12 (12-20); Aspartate Amino Transferase 26 U/L (5-31); Bilirubin Total 0.5 mg/dL (0.0-1.0); Blood Urea Nitrogen 38 mg/dL (9-16); Calcium 8.2 mg/dL (8.4-10.2); Carbon Dioxide 23 mmol/L (22-29); Chloride 109 mmol/L (96-108); Creatinine Clr Calc Pharmacy 83.1; Estimated Glomerular Filt Rate > 60; Glucose Fasting 185 mg/dL (60-99); Sodium 140 mmol/L (135-145); Total Protein 6.1 g/dL (6.5-8.0)
[2024-04-27 07:50] LABS: Glucose, Whole Blood 192 mg/dL (60-115)
[2024-04-27] MEDS: Insulin Lispro 100 UNIT/ML 3 ML VIAL SUBCUT ×4 (08:06→21:54)
[2024-04-27] MEDS: Sennosides 8.6 MG TABLET PO ×2 (08:07→21:55)
[2024-04-27] MEDS: allopurinoL 100 MG TABLET PO (08:07)
[2024-04-27] MEDS: carvediloL 6.25 MG TABLET PO ×2 (08:07→21:55)
[2024-04-27] MEDS: Nicotine 21 MG PATCH.TD24 TRANSDERMA (08:07)
[2024-04-27] MEDS: Pregabalin 100 MG CAPSULE PO ×3 (08:07→21:56)
[2024-04-27] MEDS: Roflumilast 500 MCG TABLET PO (08:07)
[2024-04-27] MEDS: Empagliflozin 10 MG TABLET PO (08:08)
[2024-04-27] MEDS: Loratadine 10 MG TABLET PO (08:08)
[2024-04-27] MEDS: 0.9 % Sodium Chloride Flush 3 ML SYRINGE IVFLUSH ×3 (08:10→21:56)
[2024-04-27] MEDS: Fluticasone/Umeclidinium/Vilanterol 100/62.5/25 BLST.W.DEV 1 PUFF INHALE (08:16)
[2024-04-27] MEDS: Albuterol/Iprat 2.5/0.5MG 3 ML AMPUL.NEB INHALE ×4 (08:19→21:51)
[2024-04-27 11:05] LABS: Alkaline Phosphatase 65 U/L (39-117)
[2024-04-27 11:37] LABS: Glucose, Whole Blood 240 mg/dL (60-115)
[2024-04-27] MEDS: Insulin Lispro 100 UNIT/ML 3 ML VIAL 9 UNIT SUBCUT ×3 (11:51→21:55)
--- NOTE | 2024-04-27 12:48 | HO.PM.IMPN ---
Subjective Subjective Date of Service: 04/27/24 Interval History: shortness of breath and wheezing improving Review of Systems Review of Systems: Yes all other systems are reviewed and are negative Physical Exam Vital Signs: Vital Signs: Last Vital Signs Temp 97.0 F 04/27/24 08:04 Pulse 70 04/27/24 11:33 Resp 16 04/27/24 11:33 BP 169/83 H 04/27/24 08:07 Pulse Ox 93 04/27/24 08:04 O2 Del Method Nasal Cannula 04/27/24 08:04 O2 Flow Rate 2 04/27/24 08:04 BMI result Body Mass Index 28.2 Gen: in no acute distress HEENT: sclera anicteric, moist mucus membranes Neck: supple Lungs: expiratory wheezing throughout Heart: regular rate and rhythm, no murmurs Abd: soft, non-tender, non-distended Ext: no edema Skin: warm/well-perfused Neuro: alert and oriented x3, no focal findings Psych: appropriate affect Objective Data Active Medications Acetaminophen (Acetaminophen 325 Mg Tablet) 650 mg PO Q6H PRN PRN Reason: Pain, Mild 1-3,fever,headache Last Admin: 04/21/24 17:45 Dose: 650 mg Documented By: RENEA Albuterol/Ipratropium (Albuterol/Iprat 2.5/0.5mg 3 Ml Ampul.Neb) 3 ml INHALE RQ4H WHILE AWAKE [facility] Last Admin: 04/27/24 11:33 Dose: 3 ml Documented By: ALEX Albuterol/Ipratropium (Albuterol/Iprat 2.5/0.5mg 3 Ml Ampul.Neb) 3 ml INHALE RQ4H WHILE AWAKE PRN PRN Reason: Shortness of Breath/Wheezing Last Admin: 04/26/24 02:36 Dose: 3 ml Documented By: LINH Allopurinol (Allopurinol 100 Mg Tablet) 100 mg PO DAILY [facility] Last Admin: 04/27/24 08:07 Dose: 100 mg Documented By: BETZY Aspirin (Aspirin Enteric Coated 81 Mg Tablet.) 81 mg PO BEDTIME [facility] Last Admin: 04/26/24 21:01 Dose: 81 mg Documented By: DAMIÁNILEsthela Atorvastatin Calcium (Atorvastatin Calcium 80 Mg Tablet) 80 mg PO BEDTIME [facility]; Protocol Last Admin: 04/26/24 21:02 Dose: 80 mg Documented By: DAREN Calcium Carbonate (Calcium Carbonate 750 Mg Tab.Chew) 750 mg PO Q4H PRN PRN Reason: Heartburn Carvedilol (Carvedilol 6.25 Mg Tablet) 6.25 mg PO BID [facility]; Protocol Last Admin: 04/27/24 08:07 Dose: 6.25 mg Documented By: BETZY Dextrose (Dextrose 50 % 25 Gm/50 Ml Syringe) 25 gm IVPUSH Q15M PRN PRN Reason: HYPOGLYCEMIA STANDING PROTOCOL Docusate Sodium (Docusate Sodium 100 Mg Capsule) 100 mg PO BEDTIME [facility] Last Admin: 04/26/24 21:02 Dose: 100 mg Documented By: DAREN Doxycycline Monohydrate (Doxycycline Monohydrate 100 Mg Capsule) 100 mg PO Q12H [facility] Last Admin: 04/27/24 06:03 Dose: 100 mg Documented By: DAREN Empagliflozin (Empagliflozin 10 Mg Tablet) 10 mg PO DAILY [facility] Last Admin: 04/27/24 08:08 Dose: 10 mg Documented By: BETZY Enoxaparin Sodium (Enoxaparin Sodium 40 Mg/0.4 Ml Syringe) 40 mg SUBCUT Q24H [facility] Last Admin: 04/26/24 16:42 Dose: 40 mg Documented By: JOSÉ MIGUEL Fluticasone Propionate (Fluticasone Propionate Nasal 16 Gm [place]) 1 spray NOSTRIL-B DAILY PRN PRN Reason: Congestion Fluticasone/Umeclidinium/Vilanterol (Fluticasone/Umeclidinium/Vilanterol 100/62.5/25 Blst.W.Dev) 1 puff INHALE RDAILY [facility] Last Admin: 04/27/24 08:16 Dose: 1 puff Documented By: ALEX Glucose (Glucose Gel 15 Gm Gel..Gram.) 15 gm PO Q15M PRN; Protocol PRN Reason: per Hypoglycemia Standing Ord. Guaifenesin/Dextromethorphan (Guaifenesin Dm 200/20/10 Ml 10 Ml Syrup) 10 ml PO Q4H PRN PRN Reason: Cough Last Admin: 04/26/24 21:01 Dose: 10 ml Documented By: DAREN Insulin Glargine (Insulin Glargine,Hum.Rec.Anlog 100 Unit/Ml 10 Ml Vial) 40 unit SUBCUT BEDTIME [facility] Insulin Human Lispro (Insulin Lispro 100 Unit/Ml 3 Ml Vial) 0 unit SUBCUT QIDACHS [facility]; Protocol Last Admin: 04/27/24 11:50 Dose: 6 unit Documented By: BETZY Insulin Human Lispro (Insulin Lispro 100 Unit/Ml 3 Ml Vial) 9 unit SUBCUT QIDAS [facility] Last Admin: 04/27/24 11:51 Dose: 9 unit Documented By: BETZY Levothyroxine Sodium (Levothyroxine Sodium 112 Mcg Tablet) 112 mcg PO DAILY@0600 [facility] Last Admin: 04/27/24 06:03 Dose: 112 mcg Documented By: DAREN Loratadine (Loratadine 10 Mg Tablet) 10 mg PO DAILY [facility] Last Admin: 04/27/24 08:08 Dose: 10 mg Documented By: BETZY Magnesium Hydroxide (Milk Of Magnesia 30 Ml Oral.Susp) 30 ml PO DAILY PRN PRN Reason: Constipation Last Admin: 04/25/24 20:33 Dose: 30 ml Documented By: MARGUERITE Melatonin (Melatonin 3 Mg Tablet) 6 mg PO BEDTIME PRN PRN Reason: Insomnia Methocarbamol (Methocarbamol 750 Mg Tablet) 750 mg PO Q8H PRN PRN Reason: neuropathy Methylprednisolone Sodium Succinate (Methylprednisolone Sod Succ 125 Mg/2 Ml Vial) 40 mg IVPUSH Q12H [facility] Montelukast Sodium (Montelukast Sodium 10 Mg Tablet) 10 mg PO BEDTIME [facility] Last Admin: 04/26/24 21:02 Dose: 10 mg Documented By: DAREN Naloxone HCl (Naloxone Hcl Nasal 4 Mg [place]) 4 mg NOSTRILALT ONCE PRN PRN Reason: Opioid Overdose Nicotine (Nicotine 21 Mg Patch.Td24) 21 mg TRANSDERMA DAILY [facility] Last Admin: 04/27/24 08:07 Dose: 21 mg Documented By: BETZY Omeprazole (Omeprazole 20 Mg Capsule.) 20 mg PO BID@0630,1630 [facility] Last Admin: 04/27/24 06:03 Dose: 20 mg Documented By: DAREN Ondansetron HCl (Ondansetron Hcl 4 Mg/2 Ml Vial) 4 mg IVPUSH Q8H PRN PRN Reason: Nausea and Vomiting Oxycodone HCl (Oxycodone Hcl Immed Release 5 Mg Tablet) 7.5 mg PO Q6H PRN PRN Reason: Pain, Severe (Pain Scale 7-10) Last Admin: 04/27/24 04:00 Dose: 7.5 mg Documented By: DAREN Pregabalin (Pregabalin 100 Mg Capsule) 100 mg PO TID [facility] Last Admin: 04/27/24 08:07 Dose: 100 mg Documented By: BETZY Roflumilast (Roflumilast 500 Mcg Tablet) 500 mcg PO DAILY [facility] Last Admin: 04/27/24 08:07 Dose: 500 mcg Documented By: BETZY Senna (Sennosides 8.6 Mg Tablet) 8.6 mg PO BID [facility] Last Admin: 04/27/24 08:07 Dose: 8.6 mg Documented By: BETZY Sodium Chloride (0.9 % Sodium Chloride Flush 3 Ml Syringe) 3 ml IVFLUSH QSHIFT [facility] Last Admin: 04/27/24 08:10 Dose: 3 ml Documented By: BETZY Labs 04/27/24 06:12 04/27/24 06:12 Labs: Laboratory Results - last 24 hr 04/26/24 04/26/24 04/26/24 11:34 16:12 20:05 MCV MCH MCHC RDW Plt Count MPV Immature Gran % (Auto) Neut % (Auto) Lymph % (Auto) [place] % (Auto) Eos % (Auto) Baso % (Auto) Lymph # (Auto) [place] # (Auto) Eos # (Auto) Baso # (Auto) Abs Immat Gran (auto) Absolute Neuts (auto) Absolute Nucleated RBC Nucleated RBC % (auto) Anion Gap Estim Creat Clear Calc Estimated GFR POC Glucose 404 H* 233 H 239 H Fasting Glucose Calcium Total Bilirubin AST ALT Alkaline Phosphatase Total Protein Albumin 04/27/24 04/27/24 04/27/24 06:12 07:42 11:33 MCV 86.5 MCH 28.8 MCHC 33.3 RDW 14.4 Plt Count 240 MPV 11.1 Immature Gran % (Auto) 1.0 H Neut % (Auto) 88.9 H Lymph % (Auto) 7.7 L [place] % (Auto) 2.2 Eos % (Auto) 0.0 Baso % (Auto) 0.2 Lymph # (Auto) 1.2 [place] # (Auto) 0.4 Eos # (Auto) 0.0 Baso # (Auto) 0.0 Abs Immat Gran (auto) 0.16 H Absolute Neuts (auto) 14.1 H Absolute Nucleated RBC 0.000 Nucleated RBC % (auto) 0.0 Anion Gap 12 Estim Creat Clear Calc 83.1 Estimated GFR > 60 POC Glucose 192 H 240 H Fasting Glucose 185 H Calcium 8.2 L Total Bilirubin 0.5 AST 26 ALT 33 H Alkaline Phosphatase 65 Total Protein 6.1 L Albumin 2.9 L Assessment and Plan (1) COPD exacerbation: Status: Resolved (2) Influenza A: Status: Resolved Plan d7 for 63yo F with CAD, DM2, COPD recently started on 2L home O2, HTN, hypothyroidism, GERD, and gout presenting with dyspnea, admitted for acute/chronic hypoxia due to COPD exacerbation acute-chronic hypoxic respiratory failure due to COPD exacerbation due to RSV + influenza A infection - decrease IV methylprednisolone and taper on prednisone eventually, continue standing/prn nebs, continue roflumilast + Trelegy, continue doxycycline - wean O2 as tolerated CAD - continue ASA + atorvastatin + carvedilol HTN - continue carvedilol hypothyroidism - continue LT4 DM2 with hyperglycemia - increase basal-bolus insulin VTE ppx - enoxaparin dispo - plan IPR/STR In my clinical judgment, the patient requires continued inpatient hospitalization for the following reasons: hypoxia Total time managing care of this patient today: 45 minutes. Quality Stroke Does the patient have a stroke diagnosis?: No VTE Prior VTE?: No VTE Risk Level:: Medical - moderate - high VTE Device Contraindication: Treatment Not Indicated VTE Drug Contraindication: N/A - Med Ordered
[2024-04-27] MEDS: guaiFENesin DM 200/20/10 ML 10 ML SYRUP PO (14:00)
--- NOTE | 2024-04-27 14:24 | MHC.CM.PN ---
EMR REVIEWED AND PER MD ROUNDS, PT WILL NEED ANOTHER DAY BEFORE MEDICALLY CLEARED FOR DC TO STR. (TAPER SOLU-MED, HYPOXIA) [facility] HAS OBTAINED AUTH FROM [facility] AND PT IS PREBOOKED FOR BLS TRANSPORT TO [place] 04/28 AT 1 PM VIA [facility]. [facility] AUTH FOR TRANSPORTATION OBTAINED. CM WILL CONTINUE TO FOLLOW FOR ANY CHANGE TO DC PLAN/NEEDS.
[2024-04-27 15:49] LABS: Glucose, Whole Blood 125 mg/dL (60-115)
[2024-04-27] MEDS: Enoxaparin Sodium 40 MG/0.4 ML SYRINGE SUBCUT (16:52)
[2024-04-27] MEDS: methylPREDNISolone Sod Succ 125 MG/2 ML VIAL 40 MG IVPUSH (16:53)
[2024-04-27 20:55] LABS: Glucose, Whole Blood 232 mg/dL (60-115)
[2024-04-27] MEDS: Insulin Glargine,Hum.rec.anlog 100 UNIT/ML 10 ML VIAL 40 UNIT SUBCUT (21:54)
[2024-04-27] MEDS: Docusate Sodium 100 MG CAPSULE PO (21:55)
[2024-04-27] MEDS: Atorvastatin Calcium 80 MG TABLET PO (21:55)
[2024-04-27] MEDS: Aspirin Enteric Coated 81 MG TABLET.DR PO (21:56)
[2024-04-27] MEDS: Montelukast Sodium 10 MG TABLET PO (21:56)
[2024-04-27] MEDS: Acetaminophen 325 MG TABLET 650 MG PO (22:11)
[2024-04-28 04:00] VITALS: BP 152/80; PULSE 72; RESP 18; TEMP 36.4; O2SAT 98
[2024-04-28] MEDS: oxyCODONE HCl Immed Release 5 MG TABLET 7.5 MG PO ×2 (04:11→12:35)
[2024-04-28] MEDS: Doxycycline Monohydrate 100 MG CAPSULE PO (05:48)
[2024-04-28] MEDS: Levothyroxine Sodium 112 MCG TABLET PO (05:48)
[2024-04-28] MEDS: Omeprazole 20 MG CAPSULE.DR PO (05:48)
[2024-04-28] MEDS: methylPREDNISolone Sod Succ 125 MG/2 ML VIAL 40 MG IVPUSH (05:48)
[2024-04-28 07:34] VITALS: BP 155/71; PULSE 75; RESP 18; TEMP 36.1; O2SAT 97
[2024-04-28 07:43] LABS: Glucose, Whole Blood 138 mg/dL (60-115)
[2024-04-28] MEDS: Fluticasone/Umeclidinium/Vilanterol 100/62.5/25 BLST.W.DEV 1 PUFF INHALE (08:16)
[2024-04-28] MEDS: Albuterol/Iprat 2.5/0.5MG 3 ML AMPUL.NEB INHALE ×2 (08:16→11:22)
[2024-04-28 08:18] VITALS: PULSE 84; RESP 18; O2SAT 98
[2024-04-28] MEDS: Insulin Lispro 100 UNIT/ML 3 ML VIAL 9 UNIT SUBCUT ×2 (08:34→12:53)
[2024-04-28] MEDS: Insulin Lispro 100 UNIT/ML 3 ML VIAL SUBCUT ×2 (08:34→12:52)
[2024-04-28] MEDS: Nicotine 21 MG PATCH.TD24 TRANSDERMA (08:35)
[2024-04-28 08:36] VITALS: BP 155/71
[2024-04-28] MEDS: carvediloL 6.25 MG TABLET PO (08:36)
[2024-04-28] MEDS: Loratadine 10 MG TABLET PO (08:37)
[2024-04-28] MEDS: 0.9 % Sodium Chloride Flush 3 ML SYRINGE IVFLUSH (08:37)
[2024-04-28] MEDS: Empagliflozin 10 MG TABLET PO (08:37)
[2024-04-28] MEDS: Roflumilast 500 MCG TABLET PO (08:37)
[2024-04-28] MEDS: Pregabalin 100 MG CAPSULE PO (08:37)
[2024-04-28] MEDS: Sennosides 8.6 MG TABLET PO (08:37)
[2024-04-28] MEDS: allopurinoL 100 MG TABLET PO (08:37)
[2024-04-28 11:23] VITALS: PULSE 89; RESP 18; O2SAT 98
[2024-04-28 11:39] LABS: Glucose, Whole Blood 221 mg/dL (60-115)
--- NOTE | 2024-04-28 12:20 | PM.DS ---
DS: Providers Provider Date of Service: 04/28/24 Date of admission: 04/21/24 16:11 Date of discharge: 04/28/24 Primary care physician: Bobby David MD Consults: 04/22/24 13:56 Consult to Pulmonology Routine Consulting Provider: [facility] Pulmonology Services Reason for consultation: copd excerebation Has provider been notified: No DS: Diagnosis Discharge Diagnosis (1) COPD exacerbation: Status: Resolved (2) Influenza A: Status: Resolved (3) RSV infection: Status: Resolved (4) Acute on chronic hypoxic respiratory failure: Status: Resolved DS: Summary Hospital Course Hospital Course: From the history and physical by the admitting hospitalist, DEBORAH Barrett, 04/21/24: Pt is a 63-year-old female with a PMH significant for?CAD, insulin-dependent type 2 diabetes, COPD recently started on 2L home O2, HTN, hypothyroidism, GERD, and gout who presents to the ED with?increased SOB productive and difficulty breathing. The pt has had 2 recent prior hospitalizations for similar symptoms, on 04/07-04/11 for hypoxia and COPD exacerbation from RSV infection and most recently being discharged 2 days prior after being admitted for acute hypoxic respiratory failure setting of COPD exacerbation from flu infection. Pt reports she felt well after last discharge and had no difficulty breathing or ambulating around her home. Yesterday however pt had increased difficulty breathing with exertion, which significantly worsened this morning. Pt reported ambulated to the bathroom and needed to have help getting back to bed despite resting for 15 minutes. Was seen by PT today who noted pt was desatting into the low 80s with ambulation on home O2 and recommended coming to the ED for further evaluation. Pt denies lower extremity edema. No orthopnea. Denies fever, chills. Cough at baseline. Denies chest pain/pressure, palpitations. No nausea, vomiting, abdominal pain. Pt is currently attempting to quit smoking, though recently was smoking approximately half a pack of cigarettes daily. In the ED pt was tachycardic to 103, tachypneic up to 26, and hypertensive to 144/83, originally satting at 83% on home 2 L NC. Labs were significant for AST 44 and ALT 56, otherwise grossly unremarkable and around baseline for pt. Chronic leukocytosis from steroids at 22.9. Stable H&H. No significant electrolyte abnormalities. Renal function baseline. BNP WNL. Initial troponin WNL. CXR showed no acute cardiopulmonary disease or interval change since prior. EKG demonstrated normal sinus rhythm without significant ST elevations or depressions, similar to prior. Pt was treated with DuoNebs. Pt will be admitted to the hospital for treatment and further evaluation of acute on chronic hypoxic respiratory failure in the setting of COPD exacerbation. 63yo F with CAD, DM2, COPD recently started on 2L home O2, HTN, hypothyroidism, GERD, and gout presenting with dyspnea. She was admitted for acute/chronic hypoxia due to COPD exacerbation. She was treated with prolonged IV methylprednisolone taper with Pulmonology consultation. She was also given nebulized bronchodilators and doxycycline. Trelegy and roflumilast were continued. She was discharged to a SNF for short-term rehabilitation/pulmonary rehabilitation. Time Attestation Discharge Coordination Time (in mins): 40 Quality: Safe Use of Opioids Does Pt have an Active Cancer Diagnosis on the Problem List?: No Quality: Stroke Does the patient have a stroke diagnosis?: No Physical Exam Vital Signs: Vital Signs: Last Vital Signs Temp 97.0 F 04/28/24 07:34 Pulse 89 04/28/24 11:23 Resp 18 04/28/24 11:23 BP 155/71 H 04/28/24 08:36 Pulse Ox 97 04/28/24 07:34 O2 Del Method Nasal Cannula 04/28/24 07:34 O2 Flow Rate 2.0 04/28/24 07:34 BMI result Body Mass Index 28.2 Gen: in no acute distress HEENT: sclera anicteric, moist mucus membranes Neck: supple Lungs: a few scattered expiratory wheezes Heart: regular rate and rhythm, no murmurs Abd: soft, non-tender, non-distended Ext: no edema Skin: warm/well-perfused Neuro: alert and oriented x3, no focal findings Psych: appropriate affect DS: Data Data Completed and Pending Completed studies during hospitalization [Text1]: Laboratory Results WBC 15.9 X10*3/uL (4.8-10.8) H 04/27/24 06:12 RBC 5.27 X10*6/uL (4.20-5.50) 04/27/24 06:12 Hgb 15.2 g/dl (12.0-16.0) 04/27/24 06:12 Hct 45.6 % (37.0-47.0) 04/27/24 06:12 MCV 86.5 fL (80.0-98.0) 04/27/24 06:12 MCH 28.8 pg (27.0-33.0) 04/27/24 06:12 MCHC 33.3 g/dl (31.0-35.0) 04/27/24 06:12 RDW 14.4 % (11.0-16.0) 04/27/24 06:12 Plt Count 240 X10*3/uL (160-400) 04/27/24 06:12 MPV 11.1 fL (9.4-12.3) 04/27/24 06:12 Immature Gran % (Auto) 1.0 % (0.0-0.4) H 04/27/24 06:12 Neut % (Auto) 88.9 % (45-73) H 04/27/24 06:12 Lymph % (Auto) 7.7 % (20-40) L 04/27/24 06:12 [place] % (Auto) 2.2 % (2-11) 04/27/24 06:12 Eos % (Auto) 0.0 % (0-4) 04/27/24 06:12 Baso % (Auto) 0.2 % (0-2) 04/27/24 06:12 Lymph # (Auto) 1.2 X10*3/uL (1.2-4.9) 04/27/24 06:12 [place] # (Auto) 0.4 X10*3/uL (0.1-1.2) 04/27/24 06:12 Eos # (Auto) 0.0 X10*3/uL (0.0-0.4) 04/27/24 06:12 Baso # (Auto) 0.0 X10*3/uL (0.0-0.2) 04/27/24 06:12 Abs Immat Gran (auto) 0.16 X10*3/uL (0.00-0.03) H 04/27/24 06:12 Absolute Neuts (auto) 14.1 x10*3/uL (2.0-8.3) H 04/27/24 06:12 Absolute Nucleated RBC 0.000 X10*3/uL (0.0-0.012) 04/27/24 06:12 Nucleated RBC % (auto) 0.0 /100WBC (0.0-0.2) 04/27/24 06:12 Neutrophils % (Manual) 92 % (45-73) H 04/21/24 12:50 Band Neutrophils % 3 % (3-5) 04/21/24 12:50 Lymphocytes % (Manual) 4 % (20-40) L 04/21/24 12:50 Atypical Lymphs % (Man) 1 % (0-6) 04/21/24 12:50 Abs Neuts (Manual) 21.8 X10*3/uL (2.0-8.3) H 04/21/24 12:50 Lymphocytes # (Manual) 0.9 X10*3/uL (1.2-4.9) L 04/21/24 12:50 Atyp Lymphs # (Manual) 0.2 x10*3/uL 04/21/24 12:50 Toxic Vacuolation PRESENT 04/21/24 12:50 Platelet Estimate NORMAL (NORMAL) 04/21/24 12:50 Large Platelets PRESENT 04/21/24 12:50 Plt Morphology Comment NOTED 04/21/24 12:50 RBC Morphology NOTED 04/21/24 12:50 Acanthocytes (Spur) 2+ (3-5) /OIF 04/21/24 12:50 Schistocytes 1+ (0-2) /OIF 04/21/24 12:50 VBG pH 7.47 (7.32-7.43) H 04/21/24 12:58 VBG pCO2 42 mmHg 04/21/24 12:58 VBG pO2 45 mmHg 04/21/24 12:58 VBG HCO3 31 mmol/L (22-26) H 04/21/24 12:58 VBG O2 Saturation 70.0 % 04/21/24 12:58 VBG Base Excess 7.4 mmol/L 04/21/24 12:58 Sodium 140 mmol/L (135-145) 04/27/24 06:12 Potassium 4.0 mmol/L (3.3-5.1) 04/27/24 06:12 Chloride 109 mmol/L (96-108) H 04/27/24 06:12 Carbon Dioxide 23 mmol/L (22-29) 04/27/24 06:12 Anion Gap 12 (12-20) 04/27/24 06:12 BUN 38 mg/dL (9-16) H 04/27/24 06:12 Creatinine 0.70 mg/dL (0.5-1.4) 04/27/24 06:12 Estim Creat Clear Calc 83.1 04/27/24 06:12 Estimated GFR > 60 04/27/24 06:12 POC Glucose 221 mg/dL (60-115) H 04/28/24 11:34 Random Glucose 266 mg/dL (60-115) H 04/23/24 06:18 Fasting Glucose 185 mg/dL (60-99) H 04/27/24 06:12 Calcium 8.2 mg/dL (8.4-10.2) L 04/27/24 06:12 Magnesium 2.0 mg/dL (1.6-2.6) 04/21/24 12:50 Total Bilirubin 0.5 mg/dL (0.0-1.0) 04/27/24 06:12 AST 26 U/L (5-31) 04/27/24 06:12 ALT 33 U/L (0-31) H 04/27/24 06:12 Alkaline Phosphatase 65 U/L (39-117) 04/27/24 06:12 Troponin I High Sens 12.9 ng/L (<3.5-17.0) D 04/21/24 12:50 B-Natriuretic Peptide 66 pg/mL (<100) 04/21/24 12:50 Total Protein 6.1 g/dL (6.5-8.0) L 04/27/24 06:12 Albumin 2.9 g/dL (3.5-5.0) L 04/27/24 06:12 Respiratory Panel [facility] See Note 04/21/24 12:50 Adenovirus (Rapid PCR) Not Detected (Not Detect.) 04/21/24 12:50 B.pert (TEM-PCR) Not Detected (Not Detect.) 04/21/24 12:50 B.parapertussis DNA PCR Not Detected (Not Detect.) 04/21/24 12:50 C. pneumoniae DNA (PCR) Not Detected (Not Detect.) 04/21/24 12:50 Coronavirus OC43 (PCR) Not Detected (Not Detect.) 04/21/24 12:50 Coronavirus HKU1 (PCR) Not Detected (Not Detect.) 04/21/24 12:50 Coronavirus 229E (PCR) Not Detected (Not Detect.) 04/21/24 12:50 Coronavirus NL63 (PCR) Not Detected (Not Detect.) 04/21/24 12:50 Human Metapneumovir PCR Not Detected (Not Detect.) 04/21/24 12:50 Influenza A (RT-PCR) Not Detected (Not Detect.) 04/21/24 12:50 Influenza B (RT-PCR) Not Detected (Not Detect.) 04/21/24 12:50 M. pneumoniae (PCR) Not Detected (Not Detect.) 04/21/24 12:50 Parainfluenza 1 (PCR) Not Detected (Not Detect.) 04/21/24 12:50 Parainfluenza 2 (PCR) Not Detected (Not Detect.) 04/21/24 12:50 Parainfluenza 3 (PCR) Not Detected (Not Detect.) 04/21/24 12:50 Parainfluenza 4 (PCR) Not Detected (Not Detect.) 04/21/24 12:50 RSV (PCR) Detected (Not Detect.) A 04/21/24 12:50 Entero/Rhino (PCR) Not Detected (Not Detect.) 04/21/24 12:50 SARS-CoV-2 RNA (RT-PCR) Not Detected (Not Detect.) 04/21/24 12:50 Impressions Chest X-Ray 04/21/24 11:56 IMPRESSION: No active pulmonary disease. No interval change from 04/14/2024. Electronically signed by: eFlton Ovalle MD 04/21/2024 01:26 PM [facility] Discharge Plan Discharge Anticipated Discharge Date/Time: 04/28/24 12:15 Patient Disposition: Xfer SNF Discharge Diagnosis: COPD exacerbation secondary to RSV and influenza Referrals: Name,MD Bobby [Primary Care Provider] - 1 Week Fidel White MD [Physician] - 2 Weeks Discharge Medications: New doxycycline monohydrate 100 mg Capsule 100 mg PO Q12H Qty: 4 0RF ipratropium-albuterol 0.5 mg-3 mg(2.5 mg base)/3 mL Solution For Nebulization 3 ml inhalation RQ4H WHILE AWAKE PRN (Reason: Shortness Of Breath/Wheezing) Qty: 270 0RF prednisone 10 mg tablet See Rx Instructions .ROUTE .COMPLEX Qty: 60 0RF Rx Instructions: 40 mg daily for 4 days, then 30 mg daily for 4 days, then 20 mg daily for 4 days, then 10 mg daily for 4 days, then 5 mg daily Continued albuterol sulfate [Ventolin HFA] 90 mcg/actuation HFA aerosol inhaler 2 puff inhalation Q4-6H PRN (Reason: for wheezing) Qty: 18 11RF roflumilast 500 mcg tablet 500 mcg PO DAILY Qty: 30 11RF docusate sodium 100 mg capsule 1 cap PO BEDTIME insulin aspart U-100 [Novolog FlexPen U-100 Insulin] 100 unit/mL (3 mL) insulin pen 6 - 10 sliding scale dose subcut TIDAC Protocol: Insulin Correction Scale Less than or equal to 110 ---- Give (units): 0 111 to 150 Give (units): 0 151 to 200 Give (units): 2 201 to 250 Give (units): 4 251 to 300 Give (units): 6 301 to 350 Give (units): 8 Greater than 350 Give (units): 10 Call MD if Blood Glucose > : 350 Combivent Respimat 20-100 mcg/actuation mist 2 puff INHALATION BID Trulicity 1.5 mg/0.5 mL pen injector 1.5 mg subcut WE@0900 Trelegy Ellipta 100-62.5-25 mcg blister with device 1 ea INHALATION DAILY Dupixent Pen 300 mg/2 mL pen injector 300 mg SUBCUT Q2W fluticasone propionate 50 mcg/actuation [place],Suspension 1 spray INTRANASAL DAILY PRN (Reason: Congestion) Rx Instructions: administer into each nostril ipratropium-albuterol 0.5 mg-3 mg(2.5 mg base)/3 mL solution for nebulization 3 ml inhalation QID PRN (Reason: Shortness Of Breath Or Wheezing) sennosides [senna] 8.6 mg Tablet 8.6 mg PO BID lidocaine 5 % adhesive patch,medicated 1 patch topical DAILY PRN (Reason: pain) insulin glargine [Lantus Solostar U-100 Insulin] 100 unit/mL (3 mL) insulin pen 35 unit SUBCUT BID Rx Instructions: PER PATIENT, MAY REQUIRE HIGHER DOSES WHEN ON STEROIDS levothyroxine 112 mcg tablet 112 mcg PO DAILY@0600 pregabalin 100 mg capsule 100 mg PO TID omeprazole 20 mg capsule,delayed release(DR/EC) 20 mg PO BID@0630,1630 aspirin 81 mg tablet,delayed release (DR/EC) 81 mg PO BEDTIME carvedilol 6.25 mg tablet 6.25 mg PO BID atorvastatin 80 mg tablet 80 mg PO BEDTIME Protocol: Hold for SBP< HOLD for SBP < : 90 montelukast 10 mg tablet 10 mg PO BEDTIME cetirizine 10 mg tablet 10 mg PO DAILY PRN (Reason: allergies) (DME) lancets [TRUEplus Lancets] 33 gauge misc See Rx Instructions .ROUTE TID Qty: 100 Rx Instructions: As directed (DME) FreeStyle Lite Strips Strip See Rx Instructions .ROUTE TID Qty: 10 Rx Instructions: As directed naloxone 4 mg/actuation spray,non-aerosol 1 spray intranasal ONCE PRN (Reason: Opioid Overdose) oxycodone-acetaminophen 7.5-325 mg tablet 1 tab PO Q6H PRN (Reason: severe pain) nicotine 21 mg/24 hr patch 24 hour 1 patch transdermal DAILY 28 Days Qty: 28 6RF methocarbamol 750 mg tablet 750 mg PO Q8H PRN (Reason: neuropathy) (DME) nebulizers Misc See Rx Instructions .Route Rx Instructions: As directed (DME) HANK Elbow Brace Misc See Rx Instructions .Route Qty: 1 0RF Rx Instructions: As directed Jardiance 10 mg tablet 10 mg PO DAILY allopurinol 100 mg tablet 100 mg PO DAILY 90 Days Qty: 90 1RF Discontinued prednisone 10 mg tablet See Taper PO DAILY Taper: Prednisone 40 mg daily for 2 Days and 0 Hour 30 mg daily for 3 Days and 0 Hour 20 mg daily for 3 Days and 0 Hour 10 mg daily for 3 Days and 0 Hour Discharge Orders: Discharge Order (Routine); Ordered 04/28/24 Ordered By: Dawit Regalado Diet: Advance to usual diet Activity on Discharge: As tolerated Stand Alone Forms: Patient Portal Discharge page Print Language: Citizen Of [place] Care Plan Goals: respiratory health Health Concerns: COPD exacerbation secondary to RSV and influenza Plan of Treatment: pulmonary rehabilitation doxycycline 100 mg twice daily for 2 more days prednisone 10 mg tabs, taper as follows: 40 mg (4 tabs) daily x 4 days, then 30 mg (3 tabs) daily x 4 days, then 20 mg (2 tabs) daily x 4 days, then 10 mg (1 tab) daily x 4 days, then return to prior dose of 5 mg [half tab] daily follow up with Pulmonology in 2-3 weeks Please follow up with your primary care doctor within 1 week of discharge from rehab. Return to the hospital if you experience recurrent or worsening symptoms. Assessment: See discharge summary
--- NOTE | 2024-04-28 12:31 | MHC.CM.PN ---
DP: PT HAS BEEN MEDICALLY CLEARED FOR DC TO PULMONARY REHAB AT [facility]. RN AWARE. BLS TRANSPORT BOOKED FOR 1 PM VIA [facility].
--- NOTE | 2024-04-28 13:04 | PC.NURSE ---
pt for discharge to [facility] , reviewed instructions with pt , pt accepting of discharge will be transported via [facility] [address]
[2024-04-28 13:38] VITALS: BP 150/69; PULSE 82; RESP 18; TEMP 36.5; O2SAT 96
== END 2024-04-28 13:44 | disposition skilled nursing facility (03) | DRG 191 ==
LOC: HO.ED 15:43 → HO.EDOVER 16:22 → HO.S3 19:59
PROVIDERS: Hospitalist; Internal Medicine; Physician Assistant Medical; Admitting Provider Student in an Organized Health Care Education/Training Program; Emergency Provider Emergency Medicine; PCP Internal Medicine Geriatric Medicine; Visit Provider Family Medicine
DX: J44.1 Chronic obstructive pulmonary disease with (acute) exacerbation (principal); J96.10 Chronic respiratory failure, unspecified whether with hypoxia or hypercapnia; B97.4 Respiratory syncytial virus as the cause of diseases classified elsewhere; E11.65 Type 2 diabetes mellitus with hyperglycemia; I25.10 Atherosclerotic heart disease of native coronary artery without angina pectoris; E89.0 Postprocedural hypothyroidism; M10.9 Gout, unspecified; J10.1 Influenza due to other identified influenza virus with other respiratory manifestations; E11.42 Type 2 diabetes mellitus with diabetic polyneuropathy; Z20.822 Contact with and (suspected) exposure to COVID-19; Z99.81 Dependence on supplemental oxygen; Z87.891 Personal history of nicotine dependence; Z79.4 Long term (current) use of insulin; Z79.82 Long term (current) use of aspirin; Z79.85 Long-term (current) use of injectable non-insulin antidiabetic drugs; Z79.890 Hormone replacement therapy; Z79.899 Other long term (current) drug therapy
CPT/HCPCS: 36415; 71045; 80048; 80053; 82803; 82947; 83735; 83880; 84484; 85007; 85025; 85027; 87633; 93005; 94640; 97116; 97161; 99285; J1650; J2919

== ENCOUNTER → 2024-04-21 11:56 | Outpatient (BNV) | payer OTHER, SELFPAY | PROVIDERS: Emergency Provider Emergency Medicine; PCP Internal Medicine Geriatric Medicine; Visit Provider Internal Medicine Cardiovascular Disease | DX: R94.31 Abnormal electrocardiogram [ECG] [EKG] (principal) | CPT/HCPCS: 93010 ==

== ENCOUNTER → 2024-04-21 11:56 | Outpatient (BNV) | payer OTHER, SELFPAY | PROVIDERS: Emergency Provider Emergency Medicine; PCP Internal Medicine Geriatric Medicine; Visit Provider Radiology Diagnostic Radiology | DX: J98.11 Atelectasis (principal) | CPT/HCPCS: 71045 ==

== ENCOUNTER → 2024-04-21 16:11 | Outpatient (BNV) | payer OTHER, SELFPAY | PROVIDERS: Admitting Provider Student in an Organized Health Care Education/Training Program; Emergency Provider Emergency Medicine; PCP Internal Medicine Geriatric Medicine; Visit Provider Student in an Organized Health Care Education/Training Program | DX: J44.1 Chronic obstructive pulmonary disease with (acute) exacerbation (principal); J10.1 Influenza due to other identified influenza virus with other respiratory manifestations | CPT/HCPCS: 99232; 99233; 99239 ==

== ENCOUNTER → 2024-04-21 16:11 | Outpatient (BNV) | payer OTHER, SELFPAY | PROVIDERS: Admitting Provider Student in an Organized Health Care Education/Training Program; Emergency Provider Emergency Medicine; PCP Internal Medicine Geriatric Medicine; Visit Provider Hospitalist | DX: R09.02 Hypoxemia (principal); J44.1 Chronic obstructive pulmonary disease with (acute) exacerbation; J21.0 Acute bronchiolitis due to respiratory syncytial virus; J44.89 Other specified chronic obstructive pulmonary disease; J10.1 Influenza due to other identified influenza virus with other respiratory manifestations | CPT/HCPCS: 99233 ==

== ENCOUNTER 2024-05-31 10:25 | Outpatient (AMB) | payer OTHER, SELFPAY ==
[2024-05-31 10:37] VITALS: BP 118/68; PULSE 83; O2SAT 97; BMI 28.2
--- NOTE | 2024-05-31 10:37 | A.OFFVIS_ITS ---
Vital Signs 05/31/24 10:37 Height 5 ft 5 in Weight 169 lb 12.095 oz BMI 28.2 BP 118/68 Blood Pressure Location Rt brachial Position Sitting Pulse 83 Pulse Source Pulse Oximeter Pulse Oximetry (%) 97 Oxygen Delivery Method Room Air Intake Visit Reasons: copd Allergies HANK Inhibitors [HANK INHIBITORS] Allergy (Severe, Verified 05/31/24 10:43) ANGIO EDEMA enalapril Allergy (Severe, Verified 05/31/24 10:43) Anaphylaxis erythromycin base [ERYTHROMYCIN BASE] Allergy (Severe, Verified 05/31/24 10:43) HIVES ALL OVER metformin Allergy (Verified 05/31/24 10:43) Unknown hydromorphone [From DILAUDID] Adverse Reaction (Severe, Verified 05/31/24 10:43) TINGLING, PT DOES NOT LIKE THE FEELING MED GIVES HER Medication List - Last Reconciled 05/31/24 by Soila Ramirez LPN allopurinol 100 mg PO DAILY 90 days arm brace (HANK Elbow Brace) As directed aspirin 81 mg PO BEDTIME atorvastatin 80 mg See Protocol PO BEDTIME blood sugar diagnostic (FreeStyle Lite Strips) As directed carvedilol 6.25 mg PO BID cetirizine 10 mg PO DAILY PRN docusate sodium 1 cap PO BEDTIME doxycycline monohydrate 100 mg PO Q12H dulaglutide (Trulicity) 1.5 mg subcut WE@0900 dupilumab (Dupixent) 300 mg subcut Q2W empagliflozin (Jardiance) 10 mg PO DAILY fluticasone propionate 50 mcg/actuation 1 spray intranasal DAILY PRN nvphrbrjlic-gpxaalfcp-medtaxeo 100-62.5-25 mcg (Trelegy Ellipta) 1 ea inhalation DAILY insulin aspart U-100 (Novolog FlexPen U-100 Insulin aspart) 6 - 10 sliding scale doses See Protocol subcut TIDAC insulin glargine (Lantus Solostar U-100 Insulin) 35 units subcut BID ipratropium-albuterol 0.5 mg-3 mg(2.5 mg base)/3 mL 3 mL inhalation QID PRN ipratropium-albuterol 0.5 mg-3 mg(2.5 mg base)/3 mL 3 mL inhalation RQ4H WHILE AWAKE PRN ipratropium-albuterol 20-100 mcg/actuation (Combivent Respimat) 2 puffs inhalation BID lancets (TRUEplus Lancets) As directed levothyroxine 112 mcg PO DAILY@0600 lidocaine 5% 1 patch topical DAILY PRN methocarbamol 750 mg PO Q8H PRN montelukast 10 mg PO BEDTIME naloxone 4 mg/actuation 1 spray intranasal ONCE PRN nebulizers As directed nicotine 1 patch transdermal DAILY 28 days omeprazole 20 mg PO BID@0630,1630 oxycodone-acetaminophen 7.5-325 mg 1 tab PO Q6H PRN prednisone 40 mg daily for 4 days, then 30 mg daily for 4 days, then 20 mg daily for 4 days, then 10 mg daily for 4 days, then 5 mg daily pregabalin 100 mg PO TID roflumilast 500 mcg PO DAILY sennosides (senna) 8.6 mg PO BID Ventolin HFA 90 mcg/actuation (albuterol sulfate) 2 puffs inhalation Q4-6H PRN NS HPI Comments Details: The patient is a 63-year-old woman with a known history of COPD and former smoker. She has had multiple hospitalizations for her COPD exacerbations. Also requiring multiple prednisone tapers in currently on chronic prednisone 5 mg daily. She was evaluated in the hospital back in April and in July. She did have chest x-rays demonstrating bilateral hazy opacities. On repeat x-rays from October 2019 it appeared that she still has a persistent opacity in the right infrahilar area. Therefore, CT scan of the chest is warranted. The patient is no longer smoking that she quit 2 years ago. However, she still exposed to secondhand smoke. She continues use her nebulizer 1 or twice a day. And she continues to use her respiratory regimen with partial resolution of her symptoms. She does complaint of shortness of breath elgs-uu-emazrlit severity with activity. And she also complains of cough usually productive in nature with either wider yellowish sputum. In the office we did have her go for 6 minutes walk test. She was able to ambulate 700 ft. Her Hillary score was 7/10 suggesting that she was in the dyspneic. Her pulse ox was indeed reassuring 94-95% throughout the ambulation. 01/24/2022 the patient is here for a pulmonary follow-up visit. Since we last spoke she has had a tough few weeks. Beginning December she started developing worsening respiratory symptoms with cough. Ultimately now her cough has become more productive greenish in color. During the last time I saw her back in the springtime she did have a COPD exacerbation requiring antibiotics and prednisone. Now with her symptoms getting worse she was able to take 20 mg of prednisone that she had and she did feel little better. She did have a CT scan of the chest sometime in the beginning of December demonstrating areas of ground- glass opacities. It is likely that she possibly had a lower respiratory viral infection and ultimately resulted in a postviral bacterial infection. She continues use her nebulizers. On examination she does have some wheezing and rhonchi. 07/25/2022 the patient is here for pulmonary follow-up visit. Since we last spoke patient ended up going to the [facility] with COPD exacerbation. She had acute respiratory failure home. She was treated for about 3-4 days since she was released. The patient had a chest x-ray demonstrating atelectasis. She was able to wean off the oxygen when she went home. Unfortunately she continues to smoke cigarettes. She also has issues with hyperparathyroidism and she has lost significant amount of weight. She recently saw her primary care doctor was placed on prednisone for COPD exacerbation. She is bringing up some mucus although is clear. The patient has allergies to antibiotics including macrolides. We did go for brief walking oximetry and she did very well maintaining a pulse ox noted. 11/24/2022 the patient is here for pulmonary follow-up visit. Overall the patient has been losing weight. She was diagnosed with apparently Lori disease, hyperthyroidism. She needs to undergo surgery. The patient is here for preoperative evaluation. She continues on the Trelegy inhaler which has been affecting beneficial. She has not required any additional prednisone. She does take 5 mg daily. She recently had a fall and she factor multiple bones but she healed okay which is reassuring. She continues to smoke unfortunately. She is trying to cut down before surgery. She did do well with Chantix in the past she quit smoking for 3 years on it. Then she tried again and cause severe nausea and vomiting and she had to stop it. I do believe that she should restarted or consider a 3rd course possibly after surgery. We did have her un dergo pulmonary function studies spirometry in the office. It appears that she does have a severe obstruction consistent with severe COPD. Therefore explained to the patient that she is high risk for perioperative pulmonary complications which include COPD exacerbations, atelectasis, hypoxia, pneumonia and prolonged mechanical ventilation. At least a pulmonary standpoint the patient is medicall y optimize. The patient is able to proceed with anesthesia and surgery understanding that she is high risk for these potential complications. 09/17/2023 the patient is here for a pulmonary follow-up visit overall the patient doing fairly well. She did have to call the dispatch because she was having difficulty breathing. She was given a short course of prednisone and now back to her based on prednisone 5 mg. She states that after her thyroid surgery back in the fall of 2022 her breathing has not been complete normal. She has had some just increased work of breathing but at this point is gotten better. Will continue to monitor her progress although right now her breathing is good I do not appreciate any stridor and she does not have any wheezing on examination. Therefore her respiratory therapy is stable. She is having issues with kidney stones. The patient is scheduled to undergo lithotripsy at this point. She will need to be under anesthesia. She does have increased risk for perioperative pulmonary complications due to her COPD and her chronic steroids but at this point she is medically optimize and is able to proceeding consent for anesthesia and surgery. We did review her chest x-ray that she had back in March 2023 demonstrating no acute disease which is reassuring. She is scheduled for CT scan of the chest because will monitoring closely pulmonary nodules in her lung cancer screening. Will plan to follow-up in 6 months with pulmonary function studies to assess her flow volume loop. 10/28/2023 the patient is here for a pulmonary follow-up visit. Recently she had to go on a prednisone taper for an asthma flare-up. She is down to her baseline prednisone. Now she is concerned about her sugars being elevated and therefore she may have to hold her orthopedic surgery. She will be seeing her hand surgeon soon. She will have additional blood work. As long she is able to taper off the prednisone and she is on her maintenance therapy and she is doing well she can proceed with anesthesia and surgery. When she completes couple more days of antibiotics. She will let me know how she is doing and if she feels like the symptoms are rebounding then she can be prescribed additional medications then. She needs to quit smoking. I did send the nicotine patch to the pharmacy. We did look at her CT scan of the chest which demonstrates bronchitis and some degree of atelectasis and some minimal emphysema but her lung parenchyma still fairly viable and she quit smoking she can least have normal lung capacity. 02/05/2024 the patient is here for a pulmonary follow-up visit. Overall she is doing a little bit worse. She feels like the allergies are bothering her causing to have worsening cough wheezing chest tightness. She continues to be on maximize respiratory therapy. Unfortunately she continues to smoke cigarettes as well that is hindering her effect of the inhalers. Although she did call the ER with worsening respiratory symptoms back in early December. At that time the patient was found to have a significant degree of eosinophilia of 600. 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 In the meantime she knows she needs to quit smoking in order to allow the therapy to work. The patient has not been taking part of the lung cancer screening program. She was doing it elsewhere. She has not had a CT scan in some time. I will put a referral in for that. She will continue with the Trelegy inhaler. She does have significant wheezing on examination so therefore I will send her another course of prednisone will be wait for the Dupixent. The patient will also undergo blood work she is concerned for mold allergies. Will go ahead and do additional allergy testing at this time. 05/31/2024 this is a hospital follow-up visit. The patient was admitted to the hospital with RSV and COPD exacerbation and pneumonia. She was treated after prolonged hospital course and then went to rehab. She was oxygen dependent. Now she is participating in the pulmonary rehabilitation program here. She was able to wean off the oxygen which is reassuring. She continues with respiratory therapy with good effect. We did look at her x-rays demonstrating evidence of bronchitis. But now she is doing better. No significant wheezing on exam. She needs to continue with pulmonary rehab. She did complete the program but now will have to continue exercising on her own. In the meantime she did start the Dupixent. The Dupixent therapy has been affecting beneficial. Currently she is still on 5 mg of prednisone which will continue due to the chronicity of the prednisone use. But if she continues to do well will start thinking about decreasing slowly. [facility] Medical History (Updated 04/27/24 @ 00:00 by Belkis Jara) Influenza A Asthma-COPD overlap syndrome Allergies History of back pain History of neuropathy Smokes tobacco daily Opioid dependence Nephrolithiasis Hyperlipidemia HTN (hypertension) Cardiomyopathy Myocardial infarction CAD (coronary artery disease) Cough Hypothyroidism, postsurgical Tubular adenoma Diabetes MCKAY (obstructive sleep apnea) Irritable bowel syndrome Hyperthyroidism Polycythemia Smoker Hypoxia COPD exacerbation Lesion of bronchus Tracheal anomaly Multinodular goiter Vitamin D deficiency Atelectasis Subclinical hyperthyroidism Goiter Pneumonia Pulmonary nodules COPD (chronic obstructive pulmonary disease) Surgical History History of coronary artery stent placement Hx of thyroidectomy History of thyroid surgery History of esophagogastroduodenoscopy (EGD) Hx of colonoscopy History of back surgery History of ureterostomy S/P lumpectomy, right breast History of cholecystectomy History of tonsillectomy Family History Father No problems noted. Mother No problems noted. Paternal Aunt Diabetes Social History Household Members: Significant Other Housing: House Do you presently have visiting nurse or other home services: Yes (PT) Alcohol intake: never Comment: declines alarm, steadt to walk short distance to commode Patient Tobacco Use Status: Former Tobacco user Tobacco use type: Cigar Cigarette Packs Per Day: 0.5 Cigarettes Per Day: 10 e-Cigarette/Vaping Use: Never Used Second Hand Smoke Exposure: Yes Substance Use Type: Other Advance Directives Date on File: 01/24/21 service: No Current occupational status: disabled Review of Systems Const Reports weight loss ENT Denies change in voice, Denies lip swelling, Denies mouth pain, Reports nasal congestion, Reports nasal discharge and Denies tongue swelling Card Denies chest pain and Denies dyspnea on exertion Resp Denies chest congestion, Reports cough and Denies dyspnea on exertion GI Denies abdominal pain Musc Denies no additional complaints Neuro Denies Neuro-related abnormal movements Psych Denies no additional complaints Alberto/Lymph Denies easy bleeding and Denies lymphadenopathy Aller/Immun Denies lip swelling and Denies tongue swelling Physical Exam Vital Signs: Last Vital Signs Pulse 83 05/31/24 10:37 BP 118/68 05/31/24 10:37 Pulse Ox 97 05/31/24 10:37 Oxygen Delivery Method Room Air 05/31/24 10:37 BMI result Body Mass Index 28.2 Last Vital Signs Temp 97.6 F 04/24/24 15:52 Pulse 86 04/24/24 15:44 Resp 16 04/24/24 15:52 BP 164/81 H 04/24/24 15:52 Pulse Ox 95 04/24/24 15:52 O2 Del Method Nasal Cannula 04/24/24 15:52 O2 Flow Rate 2 04/24/24 15:52 BMI result Body Mass Index 28.2 Const Other: Awake alert no acute distress General: alert and awake Nutritional Appearance: overweight Orientation/consciousness: patient oriented x3 Neck Neck: Yes normal visual inspection Resp Other: b/l exp wheeze; poor air entry Effort & Inspection: able to speak in complete sentences and prolonged expiratory phase Auscultation: diminished lung sounds Cardio Other: No S4; positive S1-S2; no S3 murmurs rubs or gallops Heart sounds: S1 normal heart sound present and S2 normal heart sound present GI Palpation (GI): Soft to palpation Neuro Other: grossly nonfocal General: patient oriented x3 Extrem Other: No edema bilaterally Quality Reporting (2019) Adult ([facility] ) Smoking risk assessment performed?: Yes Patient Tobacco Use Status: Former Tobacco user Assessment & Plan Assessment & Plan (1) Atelectasis: Code(s): J98.11 - Atelectasis Category: Medical (2) COPD (chronic obstructive pulmonary disease): Code(s): J44.9 - Chronic obstructive pulmonary disease, unspecified Category: Medical Qualifiers: COPD type: unspecified COPD Qualified Code(s): J44.9 - Chronic obstructive pulmonary disease, unspecified (3) MCKAY (obstructive sleep apnea): Code(s): G47.33 - Obstructive sleep apnea (adult) (pediatric) Category: Medical (4) Pulmonary nodules: Code(s): R91.8 - Other nonspecific abnormal finding of lung field Category: Medical (5) Cough: Code(s): R05.9 - Cough, unspecified Category: Medical Qualifiers: Cough type: chronic Qualified Code(s): R05.3 - Chronic cough (6) Allergies: Code(s): T78.40XA - Allergy, unspecified, initial encounter Category: Medical Qualifiers: Encounter type: initial encounter Qualified Code(s): T78.40XA - Allergy, unspecified, initial encounter (7) Asthma-COPD overlap syndrome: Code(s): J44.89 - Other specified chronic obstructive pulmonary disease Category: Medical Plan Continue Trelegy Duoneb/Combivent as needed Prednisone 5mg daily Needs to stop smoking: nicotine patch continue Daliresp continue Dupixent continue exercise regimen F/U 6 months Coding Level of Care Code Est Pt Level 4 (82818) Diagnoses Atelectasis J98.11 Simple chronic bronchitis J44.9 COPD type: unspecified COPD MCKAY (obstructive sleep apnea) G47.33 Pulmonary nodules R91.8 Chronic cough R05.3 Cough type: chronic Allergy, initial encounter T78.40XA Encounter type: initial encounter Asthma-COPD overlap syndrome J44.89 Time Spent (min) 17
--- OUTSIDE RECORDS SUMMARY | 2024-05-31 12:40 | XMS_ITS | Encounter Summary ---
Author Organization [facility] Address [address] [place] [address] Care Team Providers Care Cue Selector Name Role Phone Name, Bobby GRADY Primary Care Provider [phone] Encounter Details Date Type Department Care Team (Late st Contact Info) Description 05/08/2024 Lab Requisition [facility] - Main Lab [address] [place] [address] Yared Weaver MD [address] [place] [address], [phone] Hypothyroidism, unspecified Social History Tobacco Use Types Packs/Day Years Used Date Smoking Tobacco: Former Cigarettes Q uit: 09/17/2017 Smokeless Tobacco: Current Alcohol Use Standard Drinks/Week Comments Not Asked 0 (1 standard drink = 0.6 oz pur e alcohol) Comments Unknown Sex and Gender Information Value Date Recorded Sex Assigned at Not on file Legal Sex Female 10:25 AM EST Gender Identity Not on file Sexual Orientation Not on file documented as of this encounter Plan of Treatment Not on file documented as of this encounter Procedures Procedure Name Priority Date/Time Associated Diagnosis Comments PREALBUMIN Routine 05/09/2024 5:33 AM EST Hypothyroidism, unspecified documented in this encounter Results * Prealbumin (05/09/2024 5:33 AM EST) Prealbumin 24 18 - 45 mg/dL LAB CHEMISTRY METHOD 05/09/2024 1:03 PM EST [facility] [address] [facility] Blood Venous blood specimen / Unknown Venipuncture / Unknown 05/09/2024 5:33 AM EST 05/09/2024 11:27 AM EST us Yared Weaver MD LAB BLOOD ORDERABLES Final Resul t [facility] [address] [place] [address], documented in this encounter Visit Diagnoses Diagnosis Hypothyroidism, unspecified documented in this encounter Care Teams Cue Selector Relationship Specialty Start Date End Date Name, MD Bobby [address] [place], [place] PCP - General Internal Medicine 04/01/18 documented as of this encounter
--- OUTSIDE RECORDS SUMMARY | 2024-05-31 12:40 | XMS_ITS | Encounter Summary ---
Author Organization [employer] Address [address] [place] [address] [address] [place] [address] Care Team Providers Care Resist Coater Developer Name Role Phone Name, Bobby GRADY Primary Care Provider [phone] Reason for Visit * Reason Comments Transition Of Care (Tcm) HDF scheduled. Encounter Details Date Type Department Care Team ([facility] st Contact Info) Description 05/17/2024 Patient Outreach [facility] [address] [place] [address] Name, MD Bobby [address] [place] [address] Transition Of Care (Tcm) (HDF scheduled. /) Social History Tobacco Use Types Packs/Day Years [...] as of this encounter Progress Notes * Patricia Campos RN - 05/17/2024 4:15 PM EST TC placed to pt to inform of HDF scheduled for 05/31/24 as there were two HDF's booked. HDF's were booked on 05/31/24 at 1:15 PM and 06/03/24 at 9:[address] David. Pt states the reason there were two was because she was unsure if she had a conflict with another appointment on 05/31/24. Pt states there is no conflict on 05/31/24. Appointment on 06/03/24 cancelled as pt is able to attend appointment on 05/31/24 at 1:15 with . Pt verbalized understanding and denies questions or concerns at this time. documented in this encounter Miscellaneous Notes * Significant Event - Velma Babinos - 05/17/2024 4:20 PM EST 05/17/24 1615 Hospital Discharges and Admission for [facility] Type of Visit Hospital Admission Date of Admission/Visit 04/06/24 Date of Discharge 05/12/24 [facility] one Diagnosis COPD Disposition Discharged Home Follow-Up Actions Follow-Up Needed Provider appointment Follow-Up Outcome Booked Appointment;Spoke to Patient Initial Contact Date 05/17/24 PABLO Henry placed outbound call to patient for HDF outreach. Patient's name and were confirmed. Patient educated on the importance of follow up with provider following inpatient admission. Patient offered an HDF appt. Patient is agreeable to an appointment and has been scheduled for 06/03 at9:30am with Dr. David. Patient provided with education on contacting the Health Center with any questions or concerns prior to the scheduled appointment. Patient educated on extended clinic hours on Mondays and Wednesdays, and Walk-In Urgent Care Located in [facility]. Patient provided with after-hours line for [facility], , which offer night time triage service and [facility]. CC scanned [facility] and [facility] discharge summary into patient's chart. Patient stated she would also like to have message sent to nurses in case she is able to receive a sooner appointment. Please assist. documented in this encounter Plan of Treatment Upcoming Encounters Date Type Department Care Team (Late st Contact Info) Description 05/31/2024 1:15 PM EST Office Visit [address] [address] Name, MD Bobby [address] [place] [id number] 06/17/2024 10:00 AM EDT Telemedicine [facility] [address] [place] [address] Skye Melton, HODA documented as of this encounter Goals Goal Patient Goal Type Associated Problems Recent Progress Patient-Stated? Author Smoking cessation General No Inga Magaña, PharmD documented as of this encounter Visit Diagnoses Not on filedocumented in this encounter Additional Health Concerns Assessment Noted Time PHQ-9 Depression Total Score: 0 06/19/19 24 10:09 AM EDT documented as of this encounter Care Teams Resist Coater Developer Relationship Specialty Start Date End Date Name, MD Bobby [address] [place] [address] PCP - General Family Medicine 06/01/15 documented as of this encounter
--- OUTSIDE RECORDS SUMMARY | 2024-05-31 12:40 | XMS_ITS | Encounter Summary ---
Author Organization [employer] Address [address] [facility] 7t [place] [address] Care Team Providers Care Customer Quality Specialist Name Role Phone Name, Bobby GRADY Primary Care Provider [phone] Inga Magaña PharmD Unavailable [phone] Reason for Visit * Reason Comments Med Change Request Encounter Details Date Type Department Care Team ([facility] st Contact Info) Description 06/09/2023 Refill [facility] [address] [place] [address] Name, MD Bobby [address] [place] [address] Social History Tobacco Use Types Packs/Day Years [...] Description 05/31/2024 1:15 PM EST Office Visit [facility] [address] [place] [address] NameBobby MD [address] [place] [address] 06/17/2024 10:00 AM EDT Telemedicine [address] [address] Skye Melton, HODA documented as of this encounter Goals Goal Patient Goal Type Associated Problems Recent Progress Patient-Stated? Author Smoking cessation General No Inga Magaña PharmD documented as of this encounter Visit Diagnoses Not on filedocumented in this encounter Additional Health Concerns Assessment Noted Time PHQ-9 Depression Total Score: 0 03/11/20 22 11:47 AM EST documented as of this encounter Care Teams Customer Quality Specialist Relationship Specialty Start Date End Date NameBobby MD [address] [place] [address] PCP - General Family Medicine 06/01/15 Inga Magaña PharmD [address] [place] [address] Pharmacist Internal Medicine 01/07/23 09/29/23 documented as of this encounter
--- OUTSIDE RECORDS SUMMARY | 2024-05-31 12:40 | XMS_ITS | Encounter Summary ---
Author Organization [employer] Address [address] [place] [address] 7t [place] [address] Care Team Providers Care Customer Accounts Advisor Name Role Phone Name, Bobby GRADY Primary Care Provider [phone] Inga Magaña PharmD Unavailable [phone] Reason for Visit * Reason Comments Med Refill Encounter Details Date Type Department Care Team ([facility] Contact Info) Description 04/07/2022 Refill [facility] [address] [place] [address] Sherly Pichardo, MARKETING DEVELOPMENT REPRESENTATIVE [address] [place] [address] Chronic low back pain with sciatica, sciatica [...] Upcoming Encounters Date Type Department Care Team ([facility] st Contact Info) Description 05/31/2024 1:15 PM EST Office Visit [facility] [address] [place], [place] [address] [address] Name, [place] [address] 06/17/2024 10:00 AM EDT Telemedicine [facility] [address] [place] [address] Skye Melton, RN documented as of this encounter Visit Diagnoses Diagnosis Chronic low back pain with sciatica, sciatica laterality unspecified, unspecified back pain laterality documented in this encounter Additional Health Concerns Assessment Noted Time PHQ-9 Depression Total Score: 0 03/11/20 11:47 AM EST documented as of this encounter Care Teams Customer Accounts Advisor Relationship Specialty Start Date End Date Name, [place] [address] PCP - General Family Medicine 06/01/15 Inga Magaña PharmD [address] [place] [address] Pharmacist Internal Medicine 01/07/23 09/29/23 documented as of this encounter
--- OUTSIDE RECORDS SUMMARY | 2024-05-31 12:40 | XMS_ITS | Encounter Summary ---
Author Organization [employer] Address [address] [place] [address] 7t [place] [address] Care Team Providers Care Electrical Wiring Lineman Name Role Phone Name, Bobby GRADY Primary Care Provider [phone] Inga aMgaña PharmD Unavailable [phone] Reason for Referral * Imaging (Routine) - Closed Specialty Diagnoses / Procedures Referred By Contac t Referred To Contact Diagnoses Other ovarian cyst, right side Procedures US Pelvis Transvaginal Monisha Linton CNM [address] [place] [address] Phone: tel: fax: [facility] MRI and CT Scan [address] [place], [place] Phone: tel: fax: Referral ID Status Reason Start Date Expiration Date Visits Re quested Visits Authorized [id number] Closed 04/01/2022 09/28/2022 1 1 Encounter Details Date Type Department Care Team (Late st Contact Info) Description 04/01/2022 Orders Only [facility] [address] [place] [address] Monisha Linton CNM [address] [place] [address] Other ovarian cyst, right side (Primary Dx) [...] Description 05/31/2024 1:15 PM EST Office Visit [facility] [address] [place] [address] Name, MD Bobby [address] [place] [address] 06/17/2024 10:00 AM EDT Telemedicine [address] [address] Skye Melton RN Scheduled Orders Name Type Priority Associated Diagnoses [...] documented as of this encounter Care Teams Electrical Wiring Lineman Relationship Specialty Start Date End Date Name, MD Bobby [address] [place] [address] PCP - General Family Medicine 06/01/15 Inga Magaña PharmD [address] [place] [address] Pharmacist Internal Medicine 01/07/23 09/29/23 documented as of this encounter
--- OUTSIDE RECORDS SUMMARY | 2024-05-31 12:40 | XMS_ITS | Encounter Summary ---
Author Organization [employer] Address [address] [facility] 7t [place] [address] Care Team Providers Care Aircraft Worker Name Role Phone Name, Bobby GRADY Primary Care Provider [phone] Inga Magaña PharmD Unavailable [phone] Reason for Visit * Reason Comments Med Refill Encounter Details Date Type Department Care Team ([facility] st Contact Info) Description 04/28/2023 Refill [facility] [address] [place] [address] Name, MD Bobby [address] [place] [address] Social History Tobacco Use Types Packs/Day Years [...] Description 05/31/2024 1:15 PM EST Office Visit [facility] [address] [place] [address] NameBobby MD [address] [place] [address] 06/17/2024 10:00 AM EDT Telemedicine [address] [address] Skye Melton, HODA documented as of this encounter Goals Goal Patient Goal Type Associated Problems Recent Progress Patient-Stated? Author Smoking cessation General No Inga Magaña PharmD documented as of this encounter Visit Diagnoses Not on filedocumented in this encounter Additional Health Concerns Assessment Noted Time PHQ-9 Depression Total Score: 0 03/11/20 22 11:47 AM EST documented as of this encounter Care Teams Aircraft Worker Relationship Specialty Start Date End Date NameBobby MD [address] [place] [address] PCP - General Family Medicine 06/01/15 Inga Magaña PharmD [address] [place] [address] Pharmacist Internal Medicine 01/07/23 09/29/23 documented as of this encounter
--- OUTSIDE RECORDS SUMMARY | 2024-05-31 12:40 | XMS_ITS | Encounter Summary ---
Author Organization [employer] Address [address] [facility] 7t [place] [address] Care Team Providers Care Supreme Court Justice Name Role Phone Name, Bobby GRADY Primary Care Provider [phone] Inga Magaña PharmD Unavailable [phone] Reason for Visit * Reason Onset Date Comments Med Refill 05/26/2023 Encounter Details Date Type Department Care Team (Late st Contact Info) Description 05/26/2023 Telephone [facility] [address] [place] [address] Name, MD Bobby [address] [place] [address] Med Refill Social History Tobacco Use Types [...] 7.5-325 MG tablet To be sent to: [facility] - [place], [place] - [address] [place] [address] documented in this encounter Plan of Treatment Upcoming Encounters Date Type Department Care Team ([facility] st Contact Info) Description 05/31/2024 1:15 PM EST Office Visit [facility] [address] [place] [address] Name, MD Bobby [address] [place] [address] 06/17/2024 10:00 AM EDT Telemedicine [address] [address] Skye Melton, HODA documented as of this encounter Goals Goal Patient Goal Type Associated Problems Recent Progress Patient-Stated? Author Smoking cessation General No Inga Magaña, Lucio documented as of this encounter Visit Diagnoses Not on filedocumented in this encounter Additional Health Concerns Assessment Noted Time PHQ-9 Depression Total Score: 0 03/11/20 11:47 AM EST documented as of this encounter Care Teams Supreme Court Justice Relationship Specialty Start Date End Date NameBobby MD [address] [place] [address] PCP - General Family Medicine 06/01/15 Inga Magaña PharmD [address] [place] [address] Pharmacist Internal Medicine 01/07/23 09/29/23 documented as of this encounter
--- OUTSIDE RECORDS SUMMARY | 2024-05-31 12:40 | XMS_ITS ---
Author Organization [facility] Address Unknown Allergies, Adverse Reactions, Alerts Substance Reaction Status Noted Date Resolved Date metFORMIN active 04/28/2024 HYDROmorphone active 04/28/2024 Erythromycin active 04/28/2024 Enalapril active 04/28/2024 HANK Inhibitors resolved 04/28/2024 04/28/2024 Medications Medication Dose Frequency Directions Start Date End Alfonzo e Fleet Enema Enema 7-19 GM/118ML 1 Insert 1 unit rectal ly every 24 hours as needed for Constipation Use only if Bisacodyl Suppository is ineffective 04/29/2024 05/12/2024 Bisacodyl Suppository 10 MG 1 Insert 1 suppository rectally every 24 hours as needed for constipation Use if Senna is Ineffective 04/29/2024 05/12/2024 Senna Tablet 8.6 MG 1 {tbl} Give 1 t ablet by mouth every 24 hours as needed for Constipation 04/29/2024 05/12/2024 predniSONE Oral Tablet 10 MG 30 mg Give 30 mg by mouth in the morning for COPD exacerbation for 4 Days 05/03/2024 05/07/2024 Atorvastatin Calcium Oral Tablet 80 MG 80 mg Give 80 mg by mouth at bedtime for CAD 04/29/2024 05/12/2024 Cetirizine HCl Oral Tablet 10 MG 10 mg Give 10 mg by mouth every 24 hours as needed for allergies 04/28/2024 05/12/2024 predniSONE Oral Tablet 10 MG 10 mg Give 10 mg by mouth in the morning for COPD exacerbation for 4 Days 05/11/2024 05/12/2024 Ipratropium-Albutero l Inhalation Solution 0.5-2.5 (3) MG/3ML 1 1 vial inhale orally every 4 hours as needed for SOB/wheezing 04/28/2024 05/12/2024 Allopurinol Oral Tablet 100 MG 100 mg Give 100 mg by mouth in the morning for Gout 04/29/2024 05/12/2024 Aspirin Oral Tablet Chewable 81 MG 81 mg Give 81 mg by mouth at bedtime for CAD 04/29/2024 05/12/2024 predniSONE Oral Tablet 10 MG 40 mg Give 40 mg by mouth in the morning for COPD exacerbation for 4 Days 04/29/2024 05/03/2024 Carvedilol Oral Tablet 6.25 MG 6.25 mg 12 h Give 6.25 mg by mout h two times a day for HTN hold for SBP <90 04/29/2024 05/12/2024 Fluticasone Propionate Nasal Suspension 50 MCG/ACT 1 1 inhalation in both nostrils every 24 hours as needed for congestion administer in each nostril 04/28/2024 05/12/2024 Montelukast Sodium Oral Tablet 10 MG 10 mg Give 10 mg by mouth at bedtime for allergies 04/29/2024 05/12/2024 Albuterol Sulfate HFA Inhalation Aerosol Solution 108 (90 Base) MCG/ACT 2 2 puff inhale orally every 4 hours as needed for wheezing 04/28/2024 05/12/2024 Colace Oral Capsule 100 MG 100 mg Give 100 mg by mouth at bedtime for constipation 04/29/2024 05/12/2024 Dupixent Subcutaneous Solution Auto-injector 300 MG/2ML 300 mg Inject 300 mg subcutaneously in the morning every 2 weeks on [facility] for eczema 05/05/2024 05/05/2024 Levothyroxine Sodium Oral Tablet 112 MCG 112 ug Give 112 mcg by mout h in the morning for hypothyroidism 04/29/2024 05/12/2024 predniSONE Oral Tablet 10 MG 20 mg Give 20 mg by mouth in the morning for COPD exacerbation for 4 Days 05/07/2024 05/11/2024 Trulicity Subcutaneous Solution Auto-injector 1.5 MG/0.5ML 0.5 mL Inject 0.5 ml subcutaneously in the morning every Thu for DM 05/04/2024 05/12/2024 predniSONE Oral Tablet 5 MG 5 mg Give 5 mg by mouth i n the morning for COPD exacerbation 05/15/2024 05/12/2024 Pregabalin Oral Capsule 100 MG 100 mg 8 h Give 100 mg by mouth three times a day for pain 04/29/2024 05/12/2024 Methocarbamol Oral Tablet 750 MG 750 mg Give 750 mg by mouth every 8 hours as needed for neuropathy 04/28/2024 05/12/2024 Combivent Respimat Inhalation Aerosol Solution 20-100 MCG/ACT 2 12 h 2 puff inhale orally two times a day for resp failure 04/29/2024 05/12/2024 oxyCODONE-Acetaminop hen Oral Tablet 7.5-325 MG 1 {tbl} Give 1 tablet by marta th every 6 hours as needed for serve pain 04/28/2024 05/12/2024 Lidocaine Patch 5 % Apply to lower back topically every morning and at bedtime for Pain Management Apply for only 12 hours in a 24 hour period. May dose = 3 patches. External use only. 04/29/2024 05/12/2024 Insulin Aspart FlexPen Subcutaneous Solution Pen-injector 100 UNIT/ML Inject as per len lim scale: if 151 - 200 = 2 units; 201 - 250 = 4 untis; 251 - 300 = 6 units; 301 - 350 = 8 units greater than 350 give 10 units and call MD, subcutaneously with meals for DM 04/28/2024 05/12/2024 Naloxone HCl Nasal Liquid 4 MG/0.1ML 4 mg 4 mg in both nostril s as needed for opioid overdose 04/28/2024 05/12/2024 Jardiance Oral Tablet 10 MG 10 mg Give 10 mg by mouth in the morning for DM 04/29/2024 05/12/2024 Insulin Glargine Solostar Subcutaneous Solution Pen-injector 100 UNIT/ML 35 12 h Inject 35 unit subcutaneously two times a day for DM 04/29/2024 05/05/2024 Omeprazole Oral Tablet Delayed Release 20 MG 20 mg 12 h Give 20 mg by mouth two times a day for GERD 04/29/2024 05/12/2024 Roflumilast Oral Tablet 500 MCG 500 ug Give 500 mcg by mout h in the morning for COPD exacerbation 04/29/2024 05/12/2024 Senna Oral Tablet 8.6 MG 8.6 mg 12 h Give 8.6 mg by mouth two times a day for constipation 04/29/2024 05/12/2024 Trelegy Ellipta Inhalation Aerosol Powder Breath Activated 100-62.5-25 MCG/ACT 1 1 puff inhale orally in the morning for COPD 04/29/2024 05/12/2024 Acetaminophen Tablet 325 MG 2 {tbl} Give 2 tablet by marta th every 6 hours as needed for Pain Do not exceed 3 grams in 24 hours.Total 650 mg 04/29/2024 05/12/2024 Acetaminophen Tablet 325 MG 2 {tbl} Give 2 tablet by marta th every 6 hours as needed for Elevated Temperature > 100 Do not exceed 3 grams in 24 hours.Total 650mg 04/29/2024 05/12/2024 Nicotine Transdermal Patch 24 Hour 21 MG/24HR 21 mg 24 h Apply 21 mg transdermally one time a day for smoking cessation remove old patch daily 04/29/2024 05/12/2024 Diflucan Oral Tablet 150 MG 150 mg Give 150 mg by mouth in the morning every other day for rash for 3 Administrations 05/04/2024 05/05/2024 Nystatin Cream [id number] UNIT/GM Apply to affected ar ea topically as needed for . 05/04/2024 05/10/2024 Sore Throat Mouth/Throat Lozenge 6-10 MG 1 {Capsule} Give 1 capsule by mouth every 2 hours as needed for sore throat discomfort for 14 Days 05/04/2024 05/12/2024 Clotrimazole-Betamet hasone External Cream 1-0.05 % Apply to affected ar ea topically every day and evening shift for rash for 14 Days 05/05/2024 05/12/2024 Diflucan Oral Tablet 150 MG 150 mg Give 150 mg by mouth in the morning every other day for rash for 3 Administrations 05/06/2024 05/12/2024 Dupixent Subcutaneous Solution Auto-injector 300 MG/2ML 300 mg Inject 300 mg subcutaneously in the morning every 2 weeks on Thu for eczema 05/06/2024 05/12/2024 Lantus Solution 100 UNIT/ML 25 Inject 25 unit subcutaneously at bedtime for DM Refrigerate before opening. Once opened may store at room temp. Date when opened and discard after 28 days. Do not mix other insulin. 05/06/2024 05/12/2024 Insulin Glargine Solostar Subcutaneous Solution Pen-injector 100 UNIT/ML 35 24 h Inject 35 unit subcutaneously one time a day for DM 05/06/2024 05/12/2024 oxyCODONE HCl Oral Capsule 5 MG 5 mg Give 5 mg by mouth every 6 hours as needed for pain for 2 Days use until percocet is delivered 05/09/2024 05/11/2024 Medications Administered Medication Dose Frequency Status Start Date End Date Fleet Enema Enema 7-19 GM/118ML 1 04/29/2024 Bisacodyl Suppository 10 MG 1 04/29/2024 Senna Tablet 8.6 MG 1 {tbl} 04/29/2024 predniSONE Oral Tablet 10 MG 30 mg 05/06/2024 Atorvastatin Calcium Oral Tablet 80 MG 80 mg 05/12/2024 Cetirizine HCl Oral Tablet 10 MG 10 mg 05/05/2024 predniSONE Oral Tablet 10 MG 10 mg 05/12/2024 Ipratropium-Albuterol Inhalation Solution 0.5-2.5 (3) MG/3ML 1 05/05/2024 Allopurinol Oral Tablet 100 MG 100 mg 05/12/2024 Aspirin Oral Tablet Chewable 81 MG 81 mg 05/12/2024 predniSONE Oral Tablet 10 MG 40 mg 05/02/2024 Carvedilol Oral Tablet 6.25 MG 6.25 mg 12 h 05/12/2024 Fluticasone Propionate Nasal Suspension 50 MCG/ACT 1 04/28/2024 Montelukast Sodium Oral Tablet 10 MG 10 mg 05/12/2024 Albuterol Sulfate HFA Inhalation Aerosol Solution 108 (90 Base) MCG/ACT 2 04/28/2024 Colace Oral Capsule 100 MG 100 mg 05/12/2024 Dupixent Subcutaneous Solution Auto-injector 300 MG/2ML 300 mg Other / See Nurse Notes 05/05/2024 Levothyroxine Sodium Oral Tablet 112 MCG 112 ug 05/12/2024 predniSONE Oral Tablet 10 MG 20 mg 05/10/2024 Trulicity Subcutaneous Solution Auto-injector 1.5 MG/0.5ML 0.5 mL Other / See Nurse Notes 05/11/2024 predniSONE Oral Tablet 5 MG 5 mg 05/15/2024 Pregabalin Oral Capsule 100 MG 100 mg 8 h 05/12/2024 Methocarbamol Oral Tablet 750 MG 750 mg 05/09/2024 Combivent Respimat Inhalation Aerosol Solution 20-100 MCG/ACT 2 12 h 05/12/2024 oxyCODONE-Acetaminophen Oral Tablet 7.5-325 MG 1 {tbl} 05/12/2024 Lidocaine Patch 5 % 05/12/2024 Insulin Aspart FlexPen Subcutaneous Solution Pen-injector 100 UNIT/ML Absent from jalen e without meds 05/12/2024 Naloxone HCl Nasal Liquid 4 MG/0.1ML 4 mg 04/28/2024 Jardiance Oral Tablet 10 MG 10 mg 05/12/2024 Insulin Glargine Solostar Subcutaneous Solution Pen-injector 100 UNIT/ML 35 12 h 05/05/2024 Omeprazole Oral Tablet Delayed Release 20 MG 20 mg 12 h 05/12/2024 Roflumilast Oral Tablet 500 MCG 500 ug 05/12/2024 Senna Oral Tablet 8.6 MG 8.6 mg 12 h 05/12 Trelegy Ellipta Inhalation Aerosol Powder Breath Activated 100-62.5-25 MCG/ACT 1 05/12/2024 Acetaminophen Tablet 325 MG 2 {tbl} 04/29/2024 Acetaminophen Tablet 325 MG 2 {tbl} 04/29/2024 Nicotine Transdermal Patch 24 Hour 21 MG/24HR 21 mg 24 h 05/12/2024 Diflucan Oral Tablet 150 MG 150 mg 05/04/2024 Nystatin Cream 750483 UNIT/GM 05/04/2024 Sore Throat Mouth/Throat Lozenge 6-10 MG 1 {Capsule} 05/11/2024 Clotrimazole-Betamethason e External Cream 1-0.05 % 05/11/2024 Diflucan Oral Tablet 150 MG 150 mg 05/10/2024 Dupixent Subcutaneous Solution Auto-injector 300 MG/2ML 300 mg 05/06/2024 Lantus Solution 100 UNIT/ML 25 Other / See Nurse Notes 05/12/2024 Insulin Glargine Solostar Subcutaneous Solution Pen-injector 100 UNIT/ML 35 24 h 05/12/2024 oxyCODONE HCl Oral Capsule 5 MG 5 mg 05/10/2024 Problems Problem Status Start Date End Date CHRONIC OBSTRUCTIVE PULMONAR Y DISEASE WITH (ACUTE) EXACERBATION (Primary) (J44.1 - ICD-10-CM) ACTIVE 04/29/2024 INFLUENZA DUE TO IDENTIFIED NOVEL INFLUENZA A VIRUS WITH PNEUMONIA (J09.X1 - ICD-10-CM) ACTIVE 04/29/2024 MUSCLE WEAKNESS (GENERALIZED) (M62.81 - ICD-10-CM) ACT JEFF 04/28/2024 DIFFICULTY IN WALKING, NOT E LSEWHERE CLASSIFIED (R26.2 - ICD-10-CM) ACTIVE 04/28/2024 UNSTEADINESS ON FEET (R26.81 - ICD-10-CM) ACTIVE 04/28/2024 TYPE 2 DIABETES MELLITUS WIT H HYPEROSMOLARITY WITHOUT NONKETOTIC HYPERGLYCEMIC-HYPEROSMOLAR COMA (NKHHC) (E11.00 - ICD-10-CM) ACTIVE 04/29/2024 RESPIRATORY SYNCYTIAL VIRUS PNEUMONIA (J12.1 - ICD-10- CM) ACTIVE 04/29/2024 UNSPECIFIED ASTHMA, UNCOMPLICATED (J45.909 - ICD-10-CM ) ACTIVE 04/28/2024 ATHEROSCLEROTIC HEART DISEAS E OF [place] CORONARY ARTERY WITHOUT ANGINA PECTORIS (I25.10 - ICD-10-CM) ACTIVE 04/29/2024 ESSENTIAL (PRIMARY) HYPERTENSION (I10 - ICD-10-CM) ACT JEFF 04/29/2024 HYPOTHYROIDISM, UNSPECIFIED (E03.9 - ICD-10-CM) ACTIVE 04/29/2024 GASTRO-ESOPHAGEAL REFLUX DIS EASE WITHOUT ESOPHAGITIS (K21.9 - ICD-10-CM) ACTIVE 04/29/2024 IDIOPATHIC GOUT, UNSPECIFIED SITE (M10.00 - ICD-10-CM) ACTIVE 04/29/2024 OBSTRUCTIVE SLEEP APNEA (KACEY LT) (PEDIATRIC) (G47.33 - ICD-10-CM) ACTIVE 04/28/2024 TYPE 2 DIABETES MELLITUS WIT H DIABETIC NEUROPATHY, UNSPECIFIED (E11.40 - ICD-10-CM) ACTIVE 04/28/2024 OLD MYOCARDIAL INFARCTION (I25.2 - ICD-10-CM) ACTIVE 04/28/2024 Encounters Encounter Performer Performer Role Encounter Diagnoses Location Date Discharge - Discharged to home or self care - Home. - Private home/apt. with no home health services [facility] 04/28/2024 03:17 pm EST - 05/12/2024 11:35 am EST Immunizations Vaccine Date Pneumococcal Polysaccharide Vaccine (PPS V23) 05/23/2019 12:00 am EST Prevnar 20 Pneumococcal conjugate (PCV20 ) 11/07/2022 12:00 am EDT COVID-19, mRNA, LNP-S, PF, 50 mcg/0.5 mL 01/05/2024 12:00 am EDT COVID-19, mRNA, LNP-S, PF, 50 mcg/0.5 mL 01/05/2024 12:00 am EDT COVID-19, mRNA, LNP-S, PF, 50 mcg/0.5 mL 03/12/2023 12:00 am EST COVID-19, mRNA, LNP-S, PF, 50 mcg/0.5 mL 03/11/2022 12:00 am EST COVID-19, mRNA, LNP-S, PF, 50 mcg/0.5 mL 09/10/2021 12:00 am EDT COVID-19, mRNA, LNP-S, PF, 50 mcg/0.5 mL 02/26/2021 12:00 am EST COVID-19, mRNA, LNP-S, PF, 50 mcg/0.5 mL 07/18/2020 12:00 am EDT COVID-19, mRNA, LNP-S, PF, 50 mcg/0.5 mL 06/20/2020 12:00 am EDT Influenza, high-dose, split virus, triva lent 12/12/2023 12:00 am EDT Social History Vital Signs Vital Sign Reading Time Taken systolicValue 142 mm[Hg] 05/12/2024 11:32 am EST diastolicValue 74 mm[Hg] 05/12/2024 11:32 am EST systolicValue 155 mm[Hg] 05/11/2024 08:12 pm EST diastolicValue 65 mm[Hg] 05/11/2024 08:12 pm EST systolicValue 161 mm[Hg] 05/11/2024 01:23 pm EST diastolicValue 78 mm[Hg] 05/11/2024 01:23 pm EST systolicValue 161 mm[Hg] 05/11/2024 08:58 am EST diastolicValue 78 mm[Hg] 05/11/2024 08:58 am EST systolicValue 128 mm[Hg] 05/10/2024 10:03 pm EST diastolicValue 60 mm[Hg] 05/10/2024 10:03 pm EST systolicValue 130 mm[Hg] 05/10/2024 05:06 pm EST diastolicValue 71 mm[Hg] 05/10/2024 05:06 pm EST painLevel 0 {score} 05/12/2024 10:35 am EST painLevel 0 {score} 05/12/2024 10:16 am EST painLevel 0 {score} 05/12/2024 06:53 am EST painLevel 0 {score} 05/12/2024 01:01 am EST painLevel 4 {score} 05/12/2024 12:16 am EST painLevel 0 {score} 05/11/2024 08:11 pm EST painLevel 0 {score} 05/11/2024 04:17 pm EST painLevel 2 {score} 05/11/2024 01:25 pm EST painLevel 0 {score} 05/11/2024 01:23 pm EST painLevel 0 {score} 05/11/2024 09:01 am EST painLevel 3 {score} 05/11/2024 05:58 am EST painLevel 1 {score} 05/11/2024 05:58 am EST painLevel 0 {score} 05/11/2024 03:52 am EST painLevel 4 {score} 05/10/2024 10:04 pm EST painLevel 0 {score} 05/10/2024 09:59 pm EST painLevel 0 {score} 05/10/2024 09:58 pm EST bloodSugar 110 mg/dL 05/12/2024 08:35 am EST bloodSugar 110 mg/dL 05/12/2024 08:35 am EST bloodSugar 103 mg/dL 05/11/2024 04:22 pm EST bloodSugar 103 mg/dL 05/11/2024 04:22 pm EST bloodSugar 175 mg/dL 05/11/2024 12:01 pm EST bloodSugar 175 mg/dL 05/11/2024 12:01 pm EST bloodSugar 119 mg/dL 05/11/2024 09:41 am EST bloodSugar 119 mg/dL 05/11/2024 09:40 am EST bloodSugar 204 mg/dL 05/10/2024 05:44 pm EST bloodSugar 204 mg/dL 05/10/2024 05:44 pm EST bloodSugar 154 mg/dL 05/10/2024 12:14 pm EST bloodSugar 154 mg/dL 05/10/2024 12:14 pm EST heartrate 80 /min 05/11/2024 04:18 pm EST heartrate 72 /min 05/11/2024 01:24 pm EST heartrate 72 /min 05/11/2024 01:23 pm EST heartrate 70 /min 05/10/2024 10:07 pm EST heartrate 72 /min 05/10/2024 05:06 pm EST heartrate 72 /min 05/10/2024 05:06 pm EST oxygenSaturation 95 % 05/11/2024 04:1 8 pm EST oxygenSaturation 95 % 05/11/2024 01:2 4 pm EST oxygenSaturation 95 % 05/11/2024 01:2 3 pm EST oxygenSaturation 96 % 05/10/2024 10:0 7 pm EST oxygenSaturation 95 % 05/10/2024 05:0 6 pm EST oxygenSaturation 95 % 05/10/2024 05:0 6 pm EST temperature 97.4 [degF] 05/11/2024 01:23 pm EST temperature 97.8 [degF] 05/10/2024 05:06 pm EST respirations 20 /min 05/11/2024 01:23 pm EST respirations 20 /min 05/10/2024 05:06 pm EST
--- OUTSIDE RECORDS SUMMARY | 2024-05-31 12:40 | XMS_ITS | Encounter Summary ---
Author Organization [employer] Address [address] [place] [address] Care Team Providers Care Mica Machine Operator Name Role Phone Name, Bobby GRADY Primary Care Provider [phone] Encounter Details Date Type Department Care Team (Latest Contact Info) Description 05/11/2024 Lab Requisition [facility] - Main Lab [address] [place] [address] Yared Weaver MD [address] [place] [address], [phone] Atherosclerotic heart disease of [place] coronary artery without angina pectoris Social History Tobacco Use Types Packs/Day Years [...] Procedure Name Priority Date/Time Associated Diagnosis Comments COMPLETE BLOOD COUNT Routine 05/12/2024 8:21 AM EST Atherosclerotic heart disease of [place] coronary artery without angina pectoris BASIC METABOLIC PANEL Routine 05/12/2024 8:21 AM EST Atherosclerotic heart disease of [place] coronary artery without angina pectoris documented in this encounter Results * (ABNORMAL) Basic metabolic panel (05/12/2024 8:21 AM EST) Sodium 143 133 - 145 mmol/L LAB CHEMISTRY METHOD 05/12/2024 11:22 AM EST [facility] Potassium 3.6 3.5 - 5.5 mmol/L LAB CHEMISTRY METHOD 05/12/2024 11:22 AM [facility] Chloride 109 96 - 110 mmol/L LAB CHEMISTRY METHOD 05/12/2024 11:22 AM [facility] CO2 31 21 - 32 mmol/L LAB CHEMISTRY METHOD 05/12/2024 11:22 AM [facility] Anion Gap 3 3 - 11 LAB CHEMISTRY METHOD 05/12/2024 11:22 AM [facility] Glucose 95 70 - 100 mg/dL LAB CHEMISTRY METHOD 05/12/2024 11:22 AM [facility] BUN 21 5 - 25 mg/dL LAB CHEMISTRY METHOD 05/12/2024 11:22 AM [facility] Creatinine 0.80 0.50 - 1.10 mg/dL LAB CHEMISTRY METHOD 05/12/2024 11:22 AM [facility] eGFR 82 >=60 mL/min/1. 73m2 LAB CHEMISTRY METHOD 05/12/2024 11:22 AM [facility] Comment:Calculation based on the??Chronic Kidney Disease Epidemiology Collaboration (CKD-EPI) equation refit??without adjustment for race. BUN/Creatinine Ratio 26.3 LAB CHEMISTRY METHOD 05/12/2024 11:22 AM [facility] Calcium 8.0(L) 8.5 - 10.5 mg/dL LAB CHEMISTRY METHOD 05/12/2024 11:22 AM [facility] Blood Venous blood specimen / Unknown Venipuncture / Unknown 05/12/2024 8:21 AM EST 05/12/2024 10:56 AM EST us Yared Weaver MD LAB BLOOD ORDERABLES Final Resul t [facility] [address] [place] [address], * (ABNORMAL) Complete blood count (05/12/2024 8:21 AM EST) [facility] WBC 12.5(H) 4.8 - 10.8 K/mcL LAB HEMETOLOGY METHOD 05/12/2024 11:10 AM [facility] RBC 5.10(H) 3.80 - 4.80 M/mcL LAB HEMETOLOGY METHOD 05/12/2024 11:10 AM [facility] Hemoglobin 14.6 11.5 - 16.0 g/dL LAB HEMETOLOGY METHOD 05/12/2024 11:10 AM [facility] Hematocrit 46.7 35.0 - 47.0 % LAB HEMETOLOGY METHOD 05/12/2024 11:10 AM [facility] MCV 91.4 79.0 - 98.0 FL LAB HEMETOLOGY METHOD 05/12/2024 11:10 AM [facility] MCH 28.6 27.0 - 32.0 pcg LAB HEMETOLOGY METHOD 05/12/2024 11:10 AM [facility] MCHC 31.3(L) 32.0 - 37.0 g/dL LAB HEMETOLOGY METHOD 05/12/2024 11:10 AM [facility] RDW 16.3(H) 11.0 - 15.0 % LAB HEMETOLOGY METHOD 05/12/2024 11:10 AM [facility] Platelets 209 130 - 400 K/mcL LAB HEMETOLOGY METHOD 05/12/2024 11:10 AM [facility] MPV 10.7 7.0 - 11.0 FL LAB HEMETOLOGY METHOD 05/12/2024 11:10 AM [facility] NRBC 0.0 <1.0 % LAB HEMETOLOGY METHOD 05/12/2024 11:10 AM [facility] NRBC Absolute 0.00 <0.10 K/mcL LAB HEMETOLOGY METHOD 05/12/2024 11:10 AM EST [facility] Blood Venous blood specimen / Unknown Venipuncture / Unknown 05/12/2024 8:21 AM EST 05/12/2024 10:56 AM EST us Yared Weaver MD LAB BLOOD ORDERABLES Final Resul t [facility] [address] [place] [address], documented in this encounter Visit Diagnoses Diagnosis Atherosclerotic heart disease of [place] coronary artery without angina pectoris documented in this encounter Care Teams Mica Machine Operator Relationship Specialty Start Date End Date Name, MD Bobby [address] [place], [place] PCP - General Internal Medicine 04/01/18 documented as of this encounter
--- OUTSIDE RECORDS SUMMARY | 2024-05-31 12:40 | XMS_ITS | Encounter Summary ---
Author Organization [employer] Address [address] [place] [address] Care Team Providers Care Corporate Director Of Pharmacy Name Role Phone Name, Bobby GRADY Primary Care Provider [phone] Encounter Details Date Type Department Care Team (Latest Contact Info) Description 05/04/2024 Lab Requisition [facility] - Main Lab [address] [place] [address] Yared Weaver MD [address] [place] [address], [phone] Atherosclerotic heart disease of [place] coronary artery without angina pectoris Social History [...] Associated Diagnosis Comments COMPLETE BLOOD COUNT Routine 05/05/2024 5:05 AM EST Atherosclerotic heart disease of [place] coronary artery without angina pectoris BASIC METABOLIC PANEL Routine 05/05/2024 5:05 AM EST Atherosclerotic heart disease of [place] coronary artery without angina pectoris documented in this encounter Results * (ABNORMAL) Basic metabolic panel (05/05/2024 5:05 AM EST) Sodium 144 133 - 145 mmol/L LAB CHEMISTRY METHOD 05/05/2024 11:28 AM EST [facility] Potassium 3.9 3.5 - 5.5 mmol/L LAB CHEMISTRY METHOD 05/05/2024 11:28 AM [facility] Chloride 103 96 - 110 mmol/L LAB CHEMISTRY METHOD 05/05/2024 11:28 AM [facility] CO2 34(H) 21 - 32 mmol/L LAB CHEMISTRY METHOD 05/05/2024 11:28 AM [facility] Anion Gap 7 3 - 11 LAB CHEMISTRY METHOD 05/05/2024 11:28 AM [facility] Glucose 101(H) 70 - 100 mg/dL LAB CHEMISTRY METHOD 05/05/2024 11:28 AM [facility] BUN 19 5 - 25 mg/dL LAB CHEMISTRY METHOD 05/05/2024 11:28 AM [facility] Creatinine 0.71 0.50 - 1.10 mg/dL LAB CHEMISTRY METHOD 05/05/2024 11:28 AM [facility] eGFR 95 >=60 mL/min/1. 73m2 LAB CHEMISTRY METHOD 05/05/2024 11:28 AM [facility] Comment:Calculation based on the??Chronic Kidney Disease Epidemiology Collaboration (CKD-EPI) equation refit??without adjustment for race. BUN/Creatinine Ratio 26.8 LAB CHEMISTRY METHOD 05/05/2024 11:28 AM [facility] Calcium 8.0(L) 8.5 - 10.5 mg/dL LAB CHEMISTRY METHOD 05/05/2024 11:28 AM [facility] Blood Venous blood specimen / Unknown Venipuncture / Unknown 05/05/2024 5:05 AM EST 05/05/2024 9:37 AM EST us Yared Weaver MD LAB BLOOD ORDERABLES Final Resul t [facility] [address] [place] [address], * (ABNORMAL) Complete blood count (05/05/2024 5:05 AM EST) [facility] WBC 13.8(H) 4.8 - 10.8 K/mcL LAB HEMETOLOGY METHOD 05/05/2024 11:24 AM [facility] RBC 5.30(H) 3.80 - 4.80 M/mcL LAB HEMETOLOGY METHOD 05/05/2024 11:24 AM [facility] Hemoglobin 15.0 11.5 - 16.0 g/dL LAB HEMETOLOGY METHOD 05/05/2024 11:24 AM [facility] Hematocrit 47.2(H) 35.0 - 47.0 % LAB HEMETOLOGY METHOD 05/05/2024 11:24 AM [facility] MCV 89.6 79.0 - 98.0 FL LAB HEMETOLOGY METHOD 05/05/2024 11:24 AM [facility] MCH 28.5 27.0 - 32.0 pcg LAB HEMETOLOGY METHOD 05/05/2024 11:24 AM [facility] MCHC 31.8(L) 32.0 - 37.0 g/dL LAB HEMETOLOGY METHOD 05/05/2024 11:24 AM [facility] RDW 15.9(H) 11.0 - 15.0 % LAB HEMETOLOGY METHOD 05/05/2024 11:24 AM [facility] Platelets 184 130 - 400 K/mcL LAB HEMETOLOGY METHOD 05/05/2024 11:24 AM [facility] MPV 12.0(H) 7.0 - 11.0 FL LAB HEMETOLOGY METHOD 05/05/2024 11:24 AM [facility] NRBC 0.0 <1.0 % LAB HEMETOLOGY METHOD 05/05/2024 11:24 AM [facility] NRBC Absolute 0.00 <0.10 K/mcL LAB HEMETOLOGY METHOD 05/05/2024 11:24 AM EST [facility] Blood Venous blood specimen / Unknown Venipuncture / Unknown 05/05/2024 5:05 AM EST 05/05/2024 9:37 AM EST us Yared Weaver MD LAB BLOOD ORDERABLES Final Resul t [facility] [address] [place] [address], documented in this encounter Visit Diagnoses Diagnosis Atherosclerotic heart disease of [place] coronary artery without angina pectoris documented in this encounter Care Teams Corporate Director Of Pharmacy Relationship Specialty Start Date End Date Name, MD Bobby [address] [place], [place] PCP - General Internal Medicine 04/01/18 documented as of this encounter
--- OUTSIDE RECORDS SUMMARY | 2024-05-31 12:40 | XMS_ITS | Continuity of Care Document ---
Author Organization [facility], [facility] [place] [address] Care Team Providers Care Stereotyper Name Role Phone [facility] OTHER NAME, MHOINI Primary Care Provider Assessment Encounter Date Assessment Date Assessment LastModified by Organization Details LastModified Time 05/03/2024 05/03/2024 Labs 04/27:Na 129-K 4.0-Bun 38-Cr 0.7-wbc 15.9-hgb 15.2- hct 45-plt 240 [email or web address] Not available 05/03/2024 18:08:16 Plan of Treatment Reminders Order Date Submit Date Provider Last Modified By Organization Details Last Modified Time Details Appointments None record ed. Lab None record ed. Referral None record ed. Procedures None record ed. Surgeries None record ed. Imaging None record ed. Medication Orders None record ed. Patient TargetsNo targets recorded. Patient InstructionsNo instructions recorded. Reason for Referral None Reported. Problems Name Problem SNOMED Code Status Onset Date Resolution Date Notes Provider Name and Address Organization Details Recorded Time Acute exacerbatio n of chronic obstructive pulmonary disease 146754347 Active 2024 Not Available [facility] 13:13:30 Pneumonia caused by Influenza A virus 857592265 Active 2024 Not Available [facility] 12:06:26 Pneumonia caused by respiratory syncytial virus 535369532 Active 2024 Not Available [facility] 12:06:27 Type 2 diabetes mellitus 86320568 Active 2024 Not Available [facility] 12:09:46 Essential hypertensio n 96157984 Active 2024 Not Available [facility] 5 12:10:17 Hypothyroid ism 20116294 Active 2024 Not Available [facility] 5 12:10:48 Gastroesoph ageal reflux disease without esophagitis 488424494 Active 2024 Not Available [facility] 5 12:11:49 Primary gout 23527422 Active 2024 Not Available [facility] 5 12:11:50 Muscle weakness 09792069 Active 2024 Not Available [facility] 5 09:55:06 Unsteady when standing 012984302 Active 2024 Not Available [facility] 5 09:56:09 Difficulty walking 752763585 Active 2024 Not Available [facility] 5 09:56:40 Chronic obstructive pulmonary disease 27065568 Active 2024 GEETA KWOK [address] [place] [address], [address], [place], [address] , [facility] 5 14:52:55 Leukocytosi s 916325120 Active 2024 from steriod use MIGUE BRISENO, [facility] [address] [facility], [address], [place], [address] , [facility] 5 14:54:46 Coronary arterioscle rosis 67884121 Active [address], [address], [place], [address] , [facility] 5 15:05:30 Gout 75758011 Active 2024 MIGUE BRISENO [address], [address], [place], [address] , [facility] 5 15:09:53 Allergic rhinitis 14520645 Active 2024 GEETA KWOK [address] [facility], [address], [place], [address] , [facility] 5 15:17:53 Smoker 28132082 Active 2024 GEETA KWOK [address] [facility], [address], [place], [address] , [facility] 5 15:27:03 Uncomplicat ed asthma 727350689 Active 2024 Not Available [facility] 5 14:07:57 Old myocardial infarction 6633356 Active 2024 Not Available [facility] 5 14:08:17 Obstructive sleep apnea syndrome 99477943 Active 2024 Not Available [facility] 5 14:09:00 Disorder of nervous system due to type 2 diabetes mellitus 047642605 Active 2024 Not Available [facility] 5 14:09:32 Problem Notes None recorded. Medical Equipment None Reported. Allergies Allergen ID Allergen Name Allergen Category Reaction Reaction Severity Criticality Documentation Date Start Date Code Code System Note Provider Name and Address Organization Details Recorded Time 91490 Product containin g angiotens in-conver ting enzyme inhibitor (product) medicatio n angioedem a severe Not available 04/28/20242024 11752 009 SNOMED Not Available Not Available Not Available 47754 enalapril Not available Not available Not available high 04/28/20242017 3827 RxNorm Other react ion(s ): Anaph ylaxi s Not Available Not Available Not Available 25188 metformin medicatio n Not available Not available Not available 04/28/20242024 6809 RxNorm Not Available Not Available Not Available 73106 hydromorp cb medicatio n Not available Not available high 04/28/20242022 3423 RxNorm Other react ion(s ): TINGL ING, PT DOES NOT LIKE THE FEELI NG MED GIVES HER Not Available Not Available Not Available 13934 azithromy josephine medicatio n Not available Not available Not available 05/03/2024 52133 RxNorm Not Available Not Available Not Available 67811 erythromy josephine medicatio n anaphylax is Not available high 05/03/20242010 4053 RxNorm Other react ion(s ): Hives /Urti caria , pustu les over entir e body, Unkno wn Other React ion(s ): Unkno wn Not Available Not Available Not Available 63953 lisinopri l medicatio n Not available Not available Not available 05/03/2024 49388 RxNorm Not Available Not Available Not Available 48111 metoprolo l Not available Not available Not available Not available 05/03/2024 6918 RxNorm Not Available Not Available Not Available Medications Name Sig Start Date Stop Date Status Note LastModified by Organization Details LastModified Time celecoxib 200 mg capsule TAKE 1 CAPSULE BY MOUTH TWICE DAILY WITH FOOD AND A FULL GLASS OF WATER NEEDED FOR PAIN active Not Available Not Available No t Available fluconazole 100 mg tablet TAKE 1 TABLET BY MOUTH EVERY DAY FOR 7 DAYS active Not Available Not Available No t Available methocarbam ol 500 mg tablet TAKE 2 TABLETS BY MOUTH 2 OR 3 TIMES DAILY NEEDED FOR MUSCLE SPASMS active Not Available Not Available No t Available Percocet 7.5 mg-325 mg tablet Take 1 tablet every 6 hours by oral route as needed. 2024 active Not Available Not Available Not Avai lable atorvastati n 80 mg tablet Give 80 mg by mouth at bedtime for CAD 2024 active Not Available Not Available Not Avai lable Colace 100 mg capsule Give 100 mg by mouth at bedtime for constipat ion 2024 active Not Available Not Available Not Avai lable acetaminoph en 325 mg tablet Give 2 tablet by mouth every 6 hours as needed for Pain Do not exceed 3 grams in 24 hours.Tot al 650 mg AND Give 2 tablet by mouth every 6 hours as needed for Elevated Temperatu re > 100 Do not exceed 3 grams in 24 hours.Tot al 650mg 2024 active Not Available Not Available Not Avai lable carvedilol 6.25 mg tablet Give 6.25 mg by mouth two times a day for HTN hold for SBP <90 2024 active Not Available Not Available Not Avai lable prednisone 10 mg tablet Give 10 mg by mouth in the morning for COPD exacerbat ion for 4 Days 05/15 completed Not Available Not Available Not Available doxycycline hyclate 100 mg capsule TAKE 1 CAPSULE BY MOUTH TWICE DAILY FOR 10 DAYS active Not Available Not Available No t Available ipratropium 0.5 mg-albutero l 3 mg (2.5 mg base)/3 mL nebulizatio n soln 1 vial inhale orally every 4 hours as needed for SOB/wheez ing 2024 active Not Available Not Available Not Avai lable cefpodoxime 200 mg tablet TAKE 1 TABLET BY MOUTH EVERY TWELVE HOURS FOR 7 DAYS active Not Available Not Available No t Available Nicoderm 21 mg/24 hr daily transdermal patch Apply 21 mg transderm ally one time a day for smoking cessation remove old patch daily 2024 active Not Available Not Available Not Avai lable Lotrisone 1 %-0.05 % topical cream Apply to affected area topically every day and evening shift for rash for 14 Days 05/19 completed Not Available Not Available Not Available Levothroid 112 mcg tablet Give 112 mcg by mouth in the morning for hypothyro idism 2024 active Not Available Not Available Not Avai lable prednisone 20 mg tablet TAKE 2 TABLETS BY MOUTH EVERY DAY FOR 4 DAYS, THEN TAKE 1 TABLET DAILY FOR 4 DAYS, THEN TAKE 1/2 TABLET BY MOUTH EVERY DAY FOR 4 DAYS active Not Available Not Available No t Available Children's Aspirin 81 mg chewable tablet Give 81 mg by mouth at bedtime for CAD 2024 active Not Available Not Available Not Avai lable Lantus U-100 Insulin 100 unit/mL subcutaneou s solution Inject 25 unit subcutane ously at bedtime for DM Refrigera te before opening. Once opened may store at room temp. Date when opened and discard after 28 days. Do not mix other insulin. 2024 active Not Available Not Available Not Avai lable Diflucan 150 mg tablet Give 150 mg by mouth in the morning every other day for rash for 3 Administr ations 05/12 completed Not Available Not Available Not Available Flonase 50 mcg/actuati on nasal spray,suspe nsion 1 inhalatio n in both nostrils every 24 hours as needed for congestio n administe r in each nostril 2024 active Not Available Not Available Not Avai lable allopurinol 100 mg tablet Give 100 mg by mouth in the morning for Gout 2024 active Not Available Not Available Not Avai lable ciprofloxac in 500 mg tablet TAKE 1 TABLET BY MOUTH TWICE DAILY FOR 5 DAYS active Not Available Not Available No t Available aspirin 81 mg tablet,marcelina yed release TAKE 1 TABLET BY MOUTH EVERY DAY active Not Available Not Available No t Available doxycycline monohydrate 100 mg tablet Give 100 mg by mouth two times a day for COPD exacerbat ion for 2 Days 05/01 completed Not Available Not Available Not Available lidocaine-p rilocaine 2.5 %-2.5 % topical cream APPLY TOPICALLY TO THE AFFECTED AREA(S) OF CLEAN FEET ONCE. APPLY 15-30 MINUTES prior TO qutenza applicati on active Not Available Not Available No t Available tamsulosin 0.4 mg capsule TAKE 1 CAPSULE BY MOUTH ONCE DAILY AT BEDTIME FOR 14 DAYS active Not Available Not Available No t Available StackMob Ultra Test strips USE DIRECTED TO TEST BLOOD SUGAR THREE TIMES DAILY active Not Available Not Available No t Available levothyroxi ne 125 mcg tablet TAKE 1 TABLET BY MOUTH EVERY DAY BEFORE BREAKFAST active Not Available Not Available No t Available lidocaine 5 % topical patch APPLY 1 PATCH TOPICALLY TO SKIN, LEAVE ON FOR 12 HOURS AND OFF FOR 12 HOURS DIRECTED (TO THE most painful AREA) active Not Available Not Available No t Available oxycodone 5 mg capsule Give 5 mg by mouth every 6 hours as needed for pain for 2 Days use until percocet is delivered 05/11 completed Not Available Not Available Not Available pyridoxine (vitamin B6) 50 mg tablet TAKE 1 TABLET BY MOUTH EVERY DAY active Not Available Not Available No t Available omeprazole 20 mg capsule,del ayed release TAKE 1 CAPSULE BY MOUTH TWICE DAILY 30 MINUTES BEFORE MEALS active Not Available Not Available No t Available montelukast 10 mg tablet Give 10 mg by mouth at bedtime for allergies 2024 active Not Available Not Available Not Avai lable pyridoxine (vitamin B6) 100 mg tablet TAKE 1 TABLET BY MOUTH DAILY active Not Available Not Available No t Available ibuprofen 600 mg tablet TAKE 1 TABLET BY MOUTH EVERY 8 HOURS NEEDED FOR MILD PAIN FOR UP TO 7 DAYS active Not Available Not Available No t Available Laxative (sennosides ) 8.6 mg tablet Give 1 tablet by mouth every 24 hours as needed for Constipat ion 2024 active Not Available Not Available Not Avai lable clotrimazol e 1 % topical cream APPLY TOPICALLY TO THE AFFECTED AREA(S) TWICE DAILY FOR 28 DAYS active Not Available Not Available No t Available doxycycline hyclate 100 mg tablet TAKE 1 TABLET BY MOUTH TWICE DAILY FOR 7 DAYS WITH A FULL GLASS OF WATER. Do not lie down for 30 minutes after taking. active Not Available Not Available No t Available Sterapred 5 mg tablet Give 5 mg by mouth in the morning for COPD exacerbat ion 2024 active Not Available Not Available Not Avai lable Ventolin HFA 90 mcg/actuati on aerosol inhaler INHALE 2 PUFFS BY MOUTH EVERY 4 TO 6 HOURS NEEDED FOR WHEEZING active Not Available Not Available No t Available oxycodone 5 mg tablet Give 5 mg by mouth every 6 hours as needed for pain DC when percocet available from pharmacy 2024 active Not Available Not Available Not Avai lable Methocarb 750 mg tablet Give 750 mg by mouth every 8 hours as needed for neuropath y 2024 active Not Available Not Available Not Avai lable Novolog FlexPen U-100 Insulin aspart 100 unit/mL (3 mL) subcutaneou s INJECT 6 TO 10 UNITS SUBCUTANE OUSLY BEFORE MEALS AND SNACKS. USE DIRECTED active Not Available Not Available No t Available omeprazole magnesium 20 mg tablet,marcelina yed release Give 20 mg by mouth two times a day for GERD 2024 active Not Available Not Available Not Avai lable pregabalin 75 mg capsule TAKE 1 CAPSULE BY MOUTH TWICE DAILY (for pain) FOR 30 DAYS active Not Available Not Available No t Available pregabalin 100 mg capsule Give 100 mg by mouth three times a day for pain 2024 active Not Available Not Available Not Avai lable Lantus Solostar U-100 Insulin 100 unit/mL (3 mL) subcutaneou s pen INJECT 35 UNITS SUBCUTANE OUSLY TWICE DAILY IN THE MORNING AND IN THE EVENING active Not Available Not Available No t Available Allergy Relief (cetirizine ) 10 mg tablet Give 10 mg by mouth every 24 hours as needed for allergies 2024 active Not Available Not Available Not Avai lable calcium 315 mg (as citrate)-vi tamin D3 6.25 mcg (250 unit) tablet TAKE 1 TABLET BY MOUTH TWICE DAILY active Not Available Not Available No t Available BD Ultra-Fine Maria Guadalupe Pen Needle 32 gauge x USE DIRECTED TO TEST BLOOD SUGAR FIVE TIMES DAILY active Not Available Not Available No t Available nystatin-em ollient combo no.54 100,000 unit/gram topical cream Apply to affected area topically as needed for . 2024 active Not Available Not Available Not Avai lable Vitamin D3 50 mcg (2,000 unit) capsule TAKE 1 CAPSULE BY MOUTH ONCE DAILY active Not Available Not Available No t Available roflumilast 500 mcg tablet Give 500 mcg by mouth in the morning for COPD exacerbat ion 2024 active Not Available Not Available Not Avai lable sodium phosphates 19 gram-7 gram/197 mL enema Insert 1 unit rectally every 24 hours as needed for Constipat ion Use only if Bisacodyl Supposito ry is ineffecti ve 2024 active Not Available Not Available Not Avai lable Combivent Respimat 20 mcg-100 mcg/actuati on solution for inhalation 2 puff inhale orally two times a day for resp failure 2024 active Not Available Not Available Not Avai lable Jardiance 10 mg tablet Give 10 mg by mouth in the morning for DM 2024 active Not Available Not Available Not Avai lable Trulicity 1.5 mg/0.5 mL subcutaneou s pen injector Inject 0.5 ml subcutane ously in the morning every Thu for DM 2024 active Not Available Not Available Not Avai lable Trulicity 0.75 mg/0.5 mL subcutaneou s pen injector INJECT ONE PEN (=0.75MG) SUBCUTANE OUSLY ONCE A WEEK DIRECTED active Not Available Not Available No t Available naloxone 4 mg/actuatio n nasal spray 4 mg in both nostrils as needed for opioid overdose 2024 active Not Available Not Available Not Avai lable Trelegy Ellipta 100 mcg-62.5 mcg-25 mcg powder for inhalation INHALE 1 PUFF BY MOUTH EVERY DAY AT THE SAME TIME RINSE MOUTH AFTER USING active Not Available Not Available No t Available lidocaine 5 % topical patch-adhes ashish silicone combo pack Apply to lower back topically every morning and at bedtime for Pain Managemen t Apply for only 12 hours in a 24 hour period. May dose = 3 patches. External use only. 2024 active Not Available Not Available Not Avai lable Dupixent 300 mg/2 mL subcutaneou s pen injector Inject 300 mg subcutane ously in the morning every 2 weeks on Cristiane for eczema 2024 active Not Available Not Available Not Avai lable OneLAX Bisacodyl 10 mg rectal suppository Insert 1 supposito ry rectally every 24 hours as needed for constipat ion Use if Senna is Ineffecti ve 2024 active Not Available Not Available Not Avai lable Vitals Date Recorded Body height Body mass index (BMI) Body weight Heart rate Respiratory rate Body temperature Oxygen saturation Oxygen saturation in Arterial blood by Pulse oximetry Systolic blood pressure Diastolic blood pressure Provider Name and Address Organization Details Last Updated DateTime 5 165.1 cm 27.1 kg/m2 55149.1 2 g 78 /min 18 /min 97.5 [degF] 95 % 95 % 124 mm[Hg] 62 mm[Hg] Chiquita Guardado MD [address] [facility] [address], [place], [address], [facility] 5 17:39:40 Date Recorded Body height Heart rate Respiratory rate Body temperature Oxygen saturation Oxygen saturation in Arterial blood by Pulse oximetry Systolic blood pressure Diastolic blood pressure Provider Name and Address Organization Details Last Updated DateTime 5 165.1 cm 86 /min 18 /min 97.5 [degF] 96 % 96 % 129 mm[Hg] 78 mm[Hg] JOHAN VU NP [address] [facility], [facility] [address], [place], [address], [facility] 5 12:09:17 Date Recorded Body height Body temperature Respiratory rate Heart rate Oxygen saturation Oxygen saturation in Arterial blood by Pulse oximetry Provider Name and Address Organization Details Last Updated DateTime 5 165.1 cm 97.4 [degF] 20 /min 72 /min 95 % 95 % GEETA KWOK [address] [facility], [address], [place], [address], [facility] 5 16:23:28 Date Recorded Body height Heart rate Respiratory rate Body temperature Oxygen saturation Oxygen saturation in Arterial blood by Pulse oximetry Systolic blood pressure Diastolic blood pressure Provider Name and Address Organization Details Last Updated DateTime 165.1 cm 80 /min 20 /min 97.4 [degF] 95 % 95 % 155 mm[Hg] 65 mm[Hg] JOHAN VU NP [address] [facility], [address], [place], [address], [facility] 5 10:33:52 Date Recorded Body height Respiratory rate Oxygen saturation Oxygen saturation in Arterial blood by Pulse oximetry Provider Name and Address Organization Details Last Updated DateTime 05/04/2024 165.1 cm 20 /min 95 % 95 % GEETA KWOK [address] [facility], [address], [place], [address], [facility] 5 16:47:12 Social History Question Answer Notes LastModified by Organization Details LastModified Time Tobacco Smoking Status Former Smoker quit 2017, then started again, now none x 2 months. Chiquita Guardado MD [address] [facility], [address], [place], [address], [facility] 05/03/2024 22:40:28 Do You Have An Advance Directive? Yes Information not available 05/01/2024 What Is Your Level Of Alcohol Consumption? None Information not available 05/01/2024 What Is Your Code Status? Full Code Information not available 05/01/2024 Where Do You Live? [facility] With Information not available 05/03/2024 Legal Guardian? No Informati on not available 05/03/2024 Do You Have A Medical Power Of Cross Tie Maker? Yes Information not available 05/03/2024 What Was The Date Of Your Most Recent Tobacco Screening? 05/03/2024 Information not available 05/03/2024 Do You Have An Out Of Hospital DNR? No Information not available 05/01/2024 What Is Your Relationship Status? Information not available 05/01/2024 How Much Tobacco Do You Smoke? No Information not available 05/03/2024 Do You Use Any Illicit Or Recreational Drugs? No Information not available 05/01/2024 Has Tobacco Cessation Counseling Been Provided? Yes Encouraged To Stay Quit Information not available 05/03/2024 On What Date Was Tobacco Cessation Counseling Provided? 05/03/2024 Information not available 05/03/2024 Do You Or Have You Ever Used Any Other Forms Of Tobacco Or Nicotine? No Information not available 05/01/2024 Sex: Unknown Functional Status None recorded. Mental Status None recorded. Family History Nothing Reported. Medical History No medical history recorded. Gynecological HistoryNo gynecological history recorded. Obstetrics History GPAL:G 0 P 0 0 0 0 Immunizations Vaccine Type Date Status Note Provider Nam e and Address Organization Details Recorded Time Tdap 0 completed Samuel Ta [facility] 04/29/2024 12:14:00 Tdap 3 completed Samuel Chappell [facility] 04/29/2024 12:14:06 Pneumococcal conjugate PCV 13 3 completed Samuel Ta [facility] 04/29/2024 12:14:27 pneumococcal polysaccharide PPV23 0 completed Samuel Ta [facility] 04/29/2024 12:14:43 influenza, unspecified formulation 1 completed Samuel Ta [facility] 04/29/2024 12:15:03 influenza, unspecified formulation 2 completed Samuel Ta [facility] 04/29/2024 12:15:20 influenza, unspecified formulation 3 completed Samuel Chappell [facility] 04/29/2024 12:15:25 influenza, unspecified formulation 4 completed Samuel Ta [facility] 04/29/2024 12:15:30 SARS-COV-2 (COVID-19) vaccine, UNSPECIFIED 1 completed Samuel Ta [facility] 04/29/2024 12:16:07 SARS-COV-2 (COVID-19) vaccine, UNSPECIFIED 1 completed Samuel Chappell [facility] 04/29/2024 12:16:12 SARS-COV-2 (COVID-19) vaccine, UNSPECIFIED 1 completed Samuel Chappell [facility] 04/29/2024 12:16:16 SARS-COV-2 (COVID-19) vaccine, UNSPECIFIED 2 completed Samuel Chappell [facility] 04/29/2024 12:16:21 SARS-COV-2 (COVID-19) vaccine, UNSPECIFIED 2 completed Samuel Chappell [facility] 04/29/2024 12:16:27 SARS-COV-2 (COVID-19) vaccine, UNSPECIFIED 3 completed Samuel Chappell [facility] 04/29/2024 12:16:41 SARS-COV-2 (COVID-19) vaccine, UNSPECIFIED 4 completed Samuel Chappell [facility] 04/29/2024 12:16:51 zoster, unspecified formulation 3 completed Samuel Ta [facility] 04/29/2024 12:17:13 zoster, unspecified formulation 3 completed [facility] 04/29/2024 12:17:19 Past Encounters Encounter ID Performer Location Encounter Start Date Encounter Closed Date Diagnosis/Indication Diagnosis SNOMED-CT Code Diagnosis ICD10 Code Diagnosis Note [id number] GEETA KWOK [address] [place] [address] 04/29/2024 10:45:26 05/03/2024 09:36:15 Chronic obstructive pulmonary disease 27603798 J44.9 2/2 RSV/Influe nzaon presentati on O2 sats as low as 83 % and tachypneic 26tx inpatient with IV steroids, neb tx and abxcont doxycyclin e BID for 2 more dayscont on neb tx prn, albuterol inhaler prncont trelegy, respimat, dupixent. roflumilas tnow on prednisone taper , resume 2.5 mg when tapercompl etedmonito r resp status. Type 2 asa betes mellitus 62598192 E11.9 hx of neuropathy On trulicity, Insulin SSC, lyrica, jardiancec ont lantus at hsrobaxin prn for neuropathy painmonito r BGL TID Hypothyroidism 74690361 E03.9 continue on levothyrox inemonitor tsh prn Coronary arteriosclerosis 04710529 I25.10 HX of HLD, HTNon statincont on asamonitor for cardiac sx Essential hypertension 95152453 I10 cont on coreg dailymonit or BP Gout 30802850 M10.9 cont allopurino l dailyfollo w uric acid level prn Smoker 62076643 F17.200 reports that she has not smoked in 1 monthnow on nicotine patch 21 mgprovide support for cessation Hyperlipidemia 90341222 E78.5 cont atorvastat inmonitor labs prn Gastroesop hageal reflux disease without esophagitis 504409408 K21.9 cont omeprazole dailymonit or GI sx Allergic rhinitis 114776 04 J30.9 cont on fluticason e, montelukas t, cetirizine Leukocytosis 783577276 D 72.829 chronic from chronic steriod usefollow labs Low back pain 718652565 M54.50 cont lido patch qdpercocet prnon robaxin for neuropathy as well [id number] Chiquita Guardado MD [facility] [address] [place] [address] 05/03/2024 17:29:21 05/16/2024 12:42:00 Chronic obstructive pulmonary disease 68132142 J43.8 S/P several recent exacerbati ons, now back to baseline.C ompleted doxycyclin e 100 mg BID on 2/2Continu e slow prednisone taper.Cont inue trelegy 100/62.5/2 5 mcg qd, dupixent 300 mg q 2 wks, combivent 2 puffs BID, roflumilas t 500 mcg qd, montelukas t 10 mg qd, and duonebs and/or albuterol MDI q 4 hrs prn.Monito r resp status.F/U with pulmonary as planned. Type 2 asa betes mellitus 06137678 E11.42 Some high sugars since here, likely due to prednisone , expect improvemen t as taper continues. Continue Lantus 35U BID, Trulicity 1.5 mg weekly, Jardiance 10 mg qd, and SSI.Contin ue Lyrica 100 mg TID and methocarbo mol 750 mg q 8 hrs prn for neuropathy pain.Monit or fingerstic ks TID and HgA1C as outpt. Hypothyroidism 07682575 E03.8 Continue on levothyrox ine 112 mcg qdMonitor TSH as outpt. Coronary arteriosclerosis 84586378 I25.10 No recent sxs.Contin ue atorvastat in 80 mg qd, carvedilol 6.25 mg BID (hold for SBP<90), and ASA 81 mg qd.Monitor for sxs.F/U with cardio as planned. Essential hypertension 82907783 I10 Good control on meds as above.Chantel tor BP and labs. Gout [id number] M10.09 No current sxs.Contin ue allopurino l 100 mg qdMonitor for flare. Smoker [id number] F17.200 No longer smoking since recent hospitaliz ations.Con tinue nicotine patch 21 mg qd, taper as outpt.Cont inue to encourage abstinence . Hyperlipidemia [id number] E78.49 Continue atorvastat in 80 mg qdMonitor labs as outpt. Gastroesop hageal reflux disease without esophagitis [id number] K21.9 No current sxs.Contin ue omeprazole qdMonitor GI sxs Allergic rhinitis 607948 04 J30.89 Continue fluticason e nasal spray, montelukas t, and cetirizine Monitor sxs. Leukocytosis [id number] D 72.828 Thought to be due to prednisone .Monitor Low back pain [id number] M54.59 Under fair control.Co ntinue robaxin and Lyrica as above and lidocaine patch qd, and Percocet 7.5/325 mg q 6 hrs prn.PT/OT as above. Intertrigo [id number] L30. 4 Continue diflucan 150 mg qod x 3 doses and will start nystatin cream BID.Monito r for healing. Asthenia [id number] R53.1 Very deconditio bernice.Needs PT/OT for strengthen ing, balance, gait training, safety and function.C ontinue fall precaution s.Monitor for safety. Health Concerns Section Related Observation LastModified by Organization Detai ls LastModified Time None Recorded Concern Status LastModified by Organization Details LastModified Time None Recorded Payers Encounter Date Sequence Insurance Name Policy Number Policy Mendez Covered Member ID Mendez Member ID Guarantor Name 05/03/2024 1 [facility] - DOS ON OR AFTER 2022 - MEDICARE ADVANTAGE [place] (MEDICARE REPLACEMENT/ADV ANTAGE - PPO) Marita Lawrence [id number] Marita Lawrence Notes Date Note Type Note Provider Name and Address Organization Details Recorded Time 5 text/html This is a 63 yo woman with COPD on home O2, who is here for rehab after an acute hospitalization for COPD exacerbation with hypoxia, due to RSV.She was also s/p2 other hospitalizationsfor COPD exacerbations in 03/2024.04/07-04/11 and 04/14-04/19.Tested + for RSV on 04/07 and + for influenza also on 04/14. [facility] increased SOB and hypoxia.She had an elevated WBC attributed to steroid use.CXR was non-acute.She was tachycardic and needing oximask to maintain sats >90%.She was restarted on solumedrol and doxy, continued on duonebs, and usual inhalers.Seen by pulmonary who recommended higher dose and more prolonged steroids.She was able to be weaned back to home level of O2, 2L by NC, but remained weak and wastransferred here for STR on 04/28. She is doing well with rehab, but still feels really tired. Says roommate coughed all night last night.She also has developed a raash under her breasts, started on diflucan today. She says she was supposed to also be getting a cream 2x/d, but I don't see it in PCC. Her PMH includes HTN, COPD on home O2, AODM, CAD s/p STEMI in 2018 with thrombectomy of the RCA with a ETHEL to mid RCA, cardiomyopathy (EF 45%), cigarette smoker, GERD, gout, chronic low back pain on chronic opiates, nephrolithiasis, hx of tubular adenoma, and multinodular goiter s/p thyroidectomy with post-op hypothyroidism. Chiquita Guardado MD [address] [facility], [address], [place], [address], [facility] [employer] 05/14/2024 17:33:09 5 text/html Marita is seen today for acute rounding visit for c/o sore throat with hoarseness for 2 days, no new cough. she has been afebrile, denies any other sx bedside the development of a rash on her buttocks, she is currently on diflucan for rash. Patient states that rash was initial started as a red dot and spread quickly. GEETA KWOK [address] [facility], [address], [place], [address], [facility] [employer] 05/13/2024 16:49:37 5 text/html Marita is seen today for an acute visit. She a 63 yo woman with COPD on home O2, who is here for rehab after an acute hospitalization for COPD exacerbation with hypoxia, due to RSV. Since admission, she has been doing better and better.Working with rehab, getting stronger.Weaned off O2, resp. status staying stable.VSS.Labs today stable.BS being monitored, per nurse, running low, asked to check. Review showing AM BS +/- 100 as well as lunchtime recordings. Dinner BS mostly in 200s.Still on prednisone.Diflucan started for fungal rash under her breasts, and topical antifungal/steroid cream started for new rash on buttocks/hip area. Upon exam, Marita is in bed alert, NAD. A little sad, just wants to go home.Breathing better.BS discussed, admits BS are lower, but intake hasn't been good. She says the portions are too small, and she doesn't always get an HS snack. She is requesting to see the perennial house manager.She then shows me the rash on her buttocks - significant diffuse fungal rash. Her PMH includes HTN, COPD on home O2, AODM, CAD s/p STEMI in 2018 with thrombectomy of the RCA with a ETHEL to mid RCA, cardiomyopathy (EF 45%), cigarette smoker, GERD, gout, chronic low back pain on chronic opiates, nephrolithiasis, hx of tubular adenoma, and multinodular goiter s/p thyroidectomy with post-op hypothyroidism. JOHAN VU NP [address] [facility], [address], [place], [address], [facility] 05/05/2024 12:42:06 5 text/html This is a 63 yr old female patient seen for acute rounding visit and follow up. Patient is here for rehab s/p COPD exac 2/2 RSV. Patient is seen sitting on bed, she is oriented, she is doing well, breast and buttock fungal rash with marked improvement. she is now noted with a stage 2 pressure ulcer on her coccyx . Otherwise she is doing ok, she is making progress with therpay> per nursing she is comoplaint with medication, there is nio acute concerns. GEETA KWOK [address] [facility], [address], [place], [address], [facility] 05/11/2024 16:45:23 5 text/html Marita is seen today for discharge visit. She a 63 yo woman with COPD on home O2, who is here for rehab after an acute hospitalization for COPD exacerbation with hypoxia, due to RSV. Since admission, she has been doing better and better.Working with rehab, getting stronger.Weaned off O2, resp. status staying stable.VSS.Labs today stable.BS being monitored, were running a little low, so PM lantus reduced to 25 units, 35 units continued in am. BS now in the low 100s after adjustment in insulin made.Still on prednisone.Stay complicated by fungal rash, breasts, buttocks - improved with oral diflucan and topical antifungal/steroid cream as well as triad cream. Upon exam, Marita is in bed alert, NAD. Very happy to be going home. Feels goodd, denies any complaints or concerns. Her PMH includes HTN, COPD on home O2, AODM, CAD s/p STEMI in 2018 with thrombectomy of the RCA with a ETHEL to mid RCA, cardiomyopathy (EF 45%), cigarette smoker, GERD, gout, chronic low back pain on chronic opiates, nephrolithiasis, hx of tubular adenoma, and multinodular goiter s/p thyroidectomy with post-op hypothyroidism. JOHAN VU NP [address] [facility], [address], [place], [address], [facility] [employer] 05/20/2024 10:22:41 OBGyn Episode No OBEpisode recorded.
--- OUTSIDE RECORDS SUMMARY | 2024-05-31 12:40 | XMS_ITS | Clinical Summary ---
Author Organization [address] [facility] Address [address] [place] [address] Phone Care Team Providers Care Lpn Rn Hospice Name Role Phone Name, Bobby GRADY Primary Care Provider [phone] Encounters Date Type Department Care Team Description 05/11/2024 Lab Requisition [facility] Lab [address] [place] [phone] Yared Weaver MD Atherosclerotic heart disease of [place] coronary artery without angina pectoris 05/08/2024 Lab Requisition [facility] Lab [address] [place] [phone] Yared Weaver MD Hypothyroidism, unspecified 05/04/2024 Lab Requisition [facility] Lab [address] [place] [phone] Yared Weaver MD Atherosclerotic heart disease of [place] coronary artery without angina pectoris 04/29/2024 Lab Requisition [facility] Lab [address] [place] [phone] Yared Weaver MD Atherosclerotic heart disease of [place] coronary artery without angina pectoris from Last 3 Months Surgical History Surgery Date Site/Laterality Comments CHOLECYSTECTOMY PROCEDURE: [place] CHOLECYSTECTOMY OTHER SURGICAL HISTORY PROCEDURE: HISTORY OTHER; COMMENT: Cardiac stent KIDNEY STONE SURGERY PROCEDURE: [place] NEPHROLITHOTOMY REMOVAL CALCULUS BREAST LUMPECTOMY Right PROCEDURE: HISTORICAL BREAST LUMPECTOMY; COMMENT: benign Medical History Medical History Date Comments Coronary atherosclerosis of unspecified type of vessel, [place] or graft 07/07/2011 DX:Coronary atherosclerosis of unspecified type of vessel, [place] or graft Hypertension 07/07/2011 DX:Hypertension Historical Medical DX 07/07/2011 DX:Hyperli pidemia LDL goal < 70 DM2 (diabetes mellitus, type 2) ([facility]) 07/07/2011 DX:DM2 (diabetes mellitus, t ype 2) (HCC) Tobacco abuse 07/07/2011 DX:Tobacco abuse Allergy-induced asthma 07/07/2011 DX:Allerg y-induced asthma Family History Medical History Relation Name Comments Breast cancer Aunt 1 maternal aunt, at 60 Breast cancer Aunt 2 paternal aunt, at 60 Other: process camera operator ca Aunt 2 Colon cancer Brother at 41 Colon cancer Maternal Grandfather d at 50. Other: Other Mother at 43, blo od clot after medical procedure Colon cancer Other 1 paternal 1st co usin, in 60s. Breast cancer Other 2 paternal 1st c ousin, at 55, living Colon cancer Uncle 1 maternal uncle, at 50, +genetic mutation (unknown) Stomach cancer Uncle 2 maternal uncl e, at 60 Breast cancer Uncle 3 paternal uncle , male breast cancer, at 54. Colon cancer Uncle 4 paternal uncle, 60s Relation Name Status Comments Aunt 1 Aunt 2 Brother Maternal Grandfather Mother Other 1 Other 2 Uncle 1 Uncle 2 Uncle 3 Uncle 4 Social History Tobacco Use Types Packs/Day Years [...] on file Sexual Orientation Not on file Obstetrics History Plan of Treatment Health Maintenance Due Date Last Done Comments Diabetes: Annual Foot Exam 12/30/1969 Diabetes: Annual Retina Eye Exam 12/30/1969 Hepatitis A Vaccines (1 of 2 - Risk 2-dose series) 12/30/1978 Cervical Cancer Screening: Pap Smear 12/30/1980 RSV Immunization Patients 60+ Years Old (1 - Risk 60-74 years 1-dose series) 2019 Breast Cancer Screening 04/24/2023 04/24/2021 Colorectal Cancer Screening: Colonoscopy 06/05/2023 Diabetes: Annual Urine Albumin-Creatinine Ratio (uACR) 06/05/2023 HIV Screening 06/05/2023 Hepatitis C Screening 06/05/2023 Social Influencers of Health Screening 06/05/2023 Depression Screening 06/18/2024 06/19/2023 Diabetes: Blood Sugar Control Test (HGBA1C) 08/03/2024 02/04/2024 Diabetes: Annual GFR (Glomerular Filtration Rate) 05/12/2025 05/12/2024, 05/05/2024, 04/29/2024, Additional history exists Hypertension/CHF/CAD Annual BMP Blood Test 05/12/2025 05/12/2024, 05/05/2024, 04/29/2024, Additional history exists Cholesterol Screening (Lipid Panel) 12/28/2028 12/29/2023 DTaP,Tdap,and Td Vaccines (4 - Td or Tdap) 11/07/2032 11/07/2022, 06/12/2009, 06/12/2009 Pneumococcal Vaccine: 50+ Years Completed 11/07/2022, 05/23/2019, 03/30/2003 Pneumococcal Vaccine: Pediatrics (0 to 5 Years) [...] on patient's age to complete this topic MMR Vaccines Aged Out No longer eligi ble based on patient's age to complete this topic Meningococcal ACWY Vaccine Aged Out N o longer eligible based on patient's age to complete this topic Meningococcal B Vacine Aged Out No lo nger eligible based on patient's age to complete this topic RSV Immunization Patients Under 20 months Aged Out No longer eligible based on patient's age to complete this topic Varicella Vaccines Aged Out No longer eligible based on patient's age to complete this topic Procedures Procedure Name Priority Date/Time Associated Diagnosis Comments BASIC METABOLIC PANEL Routine 05/12/2024 8:21 AM EST Atherosclerotic heart disease of [place] coronary artery without angina pectoris COMPLETE BLOOD COUNT Routine 05/12/2024 8:21 AM EST Atherosclerotic heart disease of [place] coronary artery without angina pectoris PREALBUMIN Routine 05/09/2024 5:33 AM EST Hypothyroidism, unspecified BASIC METABOLIC PANEL Routine 05/05/2024 5:05 AM EST Atherosclerotic heart disease of [place] coronary artery without angina pectoris COMPLETE BLOOD COUNT Routine 05/05/2024 5:05 AM EST Atherosclerotic heart disease of [place] coronary artery without angina pectoris BASIC METABOLIC PANEL Routine 04/29/2024 5:10 AM EST Atherosclerotic heart disease of [place] coronary artery without angina pectoris COMPLETE BLOOD COUNT Routine 04/29/2024 5:10 AM EST Atherosclerotic heart disease of [place] coronary artery without angina pectoris from Last 3 Months Results * (ABNORMAL) Complete blood count (05/12/2024 8:21 AM EST) Only the most recent of3 resultswithin the time period is included. WBC 12.5(H) 4.8 - 10.8 K/mcL LAB HEMETOLOGY METHOD 05/12/2024 11:10 AM [facility] RBC 5.10(H) 3.80 - 4.80 M/mcL LAB HEMETOLOGY METHOD 05/12/2024 11:10 AM [facility] LAB Hemoglobin 14.6 11.5 - 16.0 g/dL LAB HEMETOLOGY METHOD 05/12/2024 11:10 AM [facility] LAB Hematocrit 46.7 35.0 - 47.0 % LAB HEMETOLOGY METHOD 05/12/2024 11:10 AM [facility] LAB MCV 91.4 79.0 - 98.0 FL LAB HEMETOLOGY METHOD 05/12/2024 11:10 AM [facility] LAB MCH 28.6 27.0 - 32.0 pcg LAB HEMETOLOGY METHOD 05/12/2024 11:10 AM EST [facility] LAB MCHC 31.3(L) 32.0 - 37.0 g/dL LAB HEMETOLOGY METHOD 05/12/2024 11:10 AM [facility] LAB RDW 16.3(H) 11.0 - 15.0 % LAB HEMETOLOGY METHOD 05/12/2024 11:10 AM EST [facility] LAB Platelets 209 130 - 400 K/mcL LAB HEMETOLOGY METHOD 05/12/2024 11:10 AM [facility] LAB MPV 10.7 7.0 - 11.0 FL LAB HEMETOLOGY METHOD 05/12/2024 11:10 AM [facility] LAB NRBC 0.0 <1.0 % LAB HEMETOLOGY METHOD 05/12/2024 11:10 AM [facility] LAB NRBC Absolute 0.00 <0.10 K/mcL LAB HEMETOLOGY METHOD 05/12/2024 11:10 AM [facility] LAB Blood Venous blood specimen / Unknown Venipuncture / Unknown 05/12/2024 8:21 AM EST 05/12/2024 10:56 AM EST us Yared Weaver MD LAB BLOOD ORDERABLES Final Resul t [facility] LAB [address] [place] [address], * (ABNORMAL) Basic metabolic panel (05/12/2024 8:21 AM EST) Only the most recent of3 resultswithin the time period is included. Sodium 143 133 - 145 mmol/L LAB CHEMISTRY METHOD 05/12/2024 11:22 AM [facility] Potassium 3.6 3.5 - 5.5 mmol/L LAB CHEMISTRY METHOD 05/12/2024 11:22 AM [facility] Chloride 109 96 - 110 mmol/L LAB CHEMISTRY METHOD 05/12/2024 11:22 AM [facility] LAB CO2 31 21 - 32 mmol/L LAB CHEMISTRY METHOD 05/12/2024 11:22 AM [facility] LAB Anion Gap 3 3 - 11 LAB CHEMISTRY METHOD 05/12/2024 11:22 AM [facility] LAB Glucose 95 70 - 100 mg/dL LAB CHEMISTRY METHOD 05/12/2024 11:22 AM [facility] BUN 21 5 - 25 mg/dL LAB CHEMISTRY METHOD 05/12/2024 11:22 AM [facility] LAB Creatinine 0.80 0.50 - 1.10 mg/dL LAB CHEMISTRY METHOD 05/12/2024 11:22 AM [facility] LAB eGFR 82 >=60 mL/min/1. 73m2 LAB CHEMISTRY METHOD 05/12/2024 11:22 AM [facility] LAB Comment:Calculation based on the??Chronic Kidney Disease Epidemiology Collaboration (CKD-EPI) equation refit??without adjustment for race. BUN/Creatinine Ratio 26.3 LAB CHEMISTRY METHOD 05/12/2024 11:22 AM [facility] Calcium 8.0(L) 8.5 - 10.5 mg/dL LAB CHEMISTRY METHOD 05/12/2024 11:22 AM [facility] LAB Blood Venous blood specimen / Unknown Venipuncture / Unknown 05/12/2024 8:21 AM EST 05/12/2024 10:56 AM EST us Yared Weaver MD LAB BLOOD ORDERABLES Final Resul t [facility] LAB [address] [place] [address], * Prealbumin (05/09/2024 5:33 AM EST) Prealbumin 24 18 - 45 mg/dL LAB CHEMISTRY METHOD 05/09/2024 1:03 PM EST [facility] Blood Venous blood specimen / Unknown Venipuncture / Unknown 05/09/2024 5:33 AM EST 05/09/2024 11:27 AM EST us Yared Weaver MD LAB BLOOD ORDERABLES Final Resul t [facility] [address] [place] [address], from Last 3 Months Insurance [facility] Member Subscriber Plan / Payer (Ef fective 2022-Present) Name:Marita Lawrence Relation to Subscriber:Self Name:Marita Lawrence Payer ID:[id number] Group ID:[id number] Type:Not on file Address: [address] [facility] [place] [address] Care Teams Lpn Rn Hospice Relationship Specialty Start Date End Date Name, MD Bobby [address] [place], [place] PCP - General Internal Medicine 04/01/18
--- OUTSIDE RECORDS SUMMARY | 2024-05-31 12:40 | XMS_ITS | Encounter Summary ---
Author Organization [employer] Address [address] [place] [address] 7 [place] [address] Care Team Providers Care Client Partner Name Role Phone Bobby David MD Primary Care Provider [phone] Inga Magaña PharmD Unavailable [phone] Reason for Visit * Reason Onset Date Comments Referral 04/23/2022 Encounter Details Date Type Department Care Team (Late st Contact Info) Description 04/23/2022 Telephone [facility] [address] [place] [address] Name, MD Bobby [address] [place] [address] Referral Social History Tobacco Use Types Packs/Day [...] Pt wants referral to see [place] [facility] as pt has hx of colon cancer and has been waiting 10 years for colonoscopy. Pt stated June at [facility] [place] an apptset up for pt on May 13 and needs referral placed before then. Pt verbalized understanding and denied having any further questions or concerns at this time. * Telephone Encounter - Octavio Mg - 04/23/2022 11:46 AM EST Tc from pt requesting an referral to see an gastroenterology at [facility] Please contact pt at [phone] documented in this encounter Plan of Treatment Upcoming Encounters Date Type Department Care Team (Late st Contact Info) Description 05/31/2024 1:15 PM EST Office Visit [facility] [address] [place] [address] Name, MD Bobby [address] [place] [address] 06/17/2024 10:00 AM EDT Telemedicine [facility] [address] [place] [address] Skye Melton RN documented as of this encounter Visit Diagnoses Diagnosis History of colon polyps- Primary Family history of colon cancer Family history of malignant neoplasm of gastrointestinal tract documented in this encounter Additional Health Concerns Assessment Noted Time PHQ-9 Depression Total Score: 0 03/11/20 22 11:47 AM EST documented as of this encounter Care Teams Client Partner Relationship Specialty Start Date End Date Name, MD Bobby [address] [place] [address] PCP - General Family Medicine 06/01/15 Inga Magaña PharmD [address] [place] [phone] Pharmacist Internal Medicine 01/07/23 09/29/23 documented as of this encounter
--- OUTSIDE RECORDS SUMMARY | 2024-05-31 12:41 | XMS_ITS | Encounter Summary ---
Author Organization [employer] Address [address] [facility] 7[address] [place] [address] Care Team Providers Care Tractor Engine Assembler Name Role Phone Name, Bobby GRADY Primary Care Provider Encounter Details Date Type Department Care Team ([facility] st Contact Info) Description 05/13/2024 Telephone [facility] [address] [place], [place] [phone] Name, MD Bobby [address] [place] [address] Social History Tobacco Use Types Packs/Day Years [...] Telephone Encounter - Patricia Campos RN - 05/13/2024 4:01 PM EST TC placed to pt to schedule HDF per below message. RN offered earliest HDF appointment with Carol Harley on 05/30/24. Pt wanted to be seen by PCP. Pt booked for HDF with PCP on 05/31/24 at 1:15 PM. Pt verbalized understanding and denies questions or concerns at this time. ----- Message from Soila Tanner sent at 05/13/2024 2:46 PM EST ----- Regarding: [facility] Care: fyi discharge f/u appt Good afternoon, Perhaps you are already aware, but I wanted to send an fyi that Marita has been discharged from [facility] to home on 05/12/24 and will be looking to schedule a discharge follow up appointment. Thanks, and have a great weekend! Soila Kincaid, Nurse Marine Engine Mechanic documented in this encounter Plan of Treatment Upcoming Encounters Date Type Department Care Team (Late st Contact Info) Description 05/31/2024 1:15 PM EST Office Visit [address] [address] Name, MD Bobby [address] [place] [address] 06/17/2024 10:00 AM EDT Telemedicine [address] [address] Skye Melton, RN documented as of this encounter Goals Goal Patient Goal Type Associated Problems Recent Progress Patient-Stated? Author Smoking cessation General No Inga Magaña, PharmD documented as of this encounter Visit Diagnoses Not on filedocumented in this encounter Additional Health Concerns Assessment Noted Time PHQ-9 Depression Total Score: 0 06/19/19 24 10:09 AM EDT documented as of this encounter Care Teams Tractor Engine Assembler Relationship Specialty Start Date End Date Name, MD Bobby [address] [place] [address] PCP - General Family Medicine 06/01/15 documented as of this encounter
--- OUTSIDE RECORDS SUMMARY | 2024-05-31 12:41 | XMS_ITS | Encounter Summary ---
Author Organization [employer] Address [address] [place] [address] 7t [place] [address] Care Team Providers Care Plant Protection Guard Name Role Phone Name, Bobby GRADY Primary Care Provider [phone] Inga Magaña PharmD Unavailable [phone] Reason for Visit * Reason Comments Med Refill Encounter Details Date Type Department Care Team (Late Contact Info) Description 11/18/2022 Refill [facility] [address] [place] [address] Name, MD Bobby [address] [place] [address] Type 2 diabetes mellitus without complications (CMS/HCC) [...] Department Care Team (Late Contact Info) Description 05/31/2024 1:15 PM EST Office Visit [facility] [address] [place] [address] Name, MD Bobby [facility] [place] [address] 06/17/2024 10:00 AM EDT Telemedicine [facility] [place] [address] Skye Melton, RN documented as of this encounter Visit Diagnoses Diagnosis Type 2 diabetes mellitus without complications (CMS/HCC) documented in this encounter Additional Health Concerns Assessment Noted Time PHQ-9 Depression Total Score: 0 03/11/20 22 11:47 AM EST documented as of this encounter Care Teams Plant Protection Guard Relationship Specialty Start Date End Date Name, MD Bobby [facility] [place] [address] PCP - General Family Medicine 06/01/15 [place] [address] Pharmacist Internal Medicine 01/07/23 09/29/23 documented as of this encounter
--- OUTSIDE RECORDS SUMMARY | 2024-05-31 12:41 | XMS_ITS | Encounter Summary ---
Author Organization [employer] Address [address] [place] [address] 7t [place] [address] Care Team Providers Care Seed Potato Arranger Name Role Phone Name, Bobby GRADY Primary Care Provider [phone] Inga Magaña PharmD Unavailable [phone] Reason for Visit * Reason Comments Med Refill Encounter Details Date Type Department Care Team ([facility] Contact Info) Description 11/18/2022 Refill [facility] [address] [place] [address] Sherly Pichardo, GEETA [address] [place] [address] Type 2 diabetes mellitus without complications (CMS/LTAC, [...] Upcoming Encounters Date Type Department Care Team ([facility] Contact Info) Description 05/31/2024 1:15 PM EST Office Visit [facility] [address] [place] [address] Name, [place] [address] 06/17/2024 10:00 AM EDT Telemedicine [facility] [address] [place] [address] Skye Melton, RN documented as of this encounter Visit Diagnoses Diagnosis Type 2 diabetes mellitus without complications (CMS/HCC) documented in this encounter Additional Health Concerns Assessment Noted Time PHQ-9 Depression Total Score: 0 03/11/20 22 11:47 AM EST documented as of this encounter Care Teams Seed Potato Arranger Relationship Specialty Start Date End Date Name, [place] [address] PCP - General Family Medicine 06/01/15 Inga Magaña PharmD [address] [place] [phone] Pharmacist Internal Medicine 01/07/23 09/29/23 documented as of this encounter
--- OUTSIDE RECORDS SUMMARY | 2024-05-31 12:41 | XMS_ITS | Encounter Summary ---
Author Organization [employer] Address [address] [place] [address] 7t [place] [address] Care Team Providers Care Unit Aide Tech Name Role Phone Name, Bobby GRADY Primary Care Provider [phone] Inga Magaña PharmD Unavailable [phone] Encounter Details Date Type Department Care Team (Late st Contact Info) Description 03/05/2022 Telephone [facility] [address] [place] [address] Monisha Linton CNM [address] [place] [address] Social History Tobacco Use Types Packs/Day Years [...] Description 05/31/2024 1:15 PM EST Office Visit [facility] [address] [place] [address] [phone] Name, MD Bobby [address] [place] [address] 06/17/2024 10:00 AM EDT Telemedicine [facility] [address] [place] [address] [phone] Skye Melton, RN documented as of this encounter Visit Diagnoses Not on filedocumented in this encounter Care Teams Unit Aide Tech Relationship Specialty Start Date End Date Name, MD Bobby [address] [place], [place] [phone] PCP - General Family Medicine 06/01/15 Inga Magaña PharmD [address] [place] [address] Pharmacist Internal Medicine 01/07/23 09/29/23 documented as of this encounter
--- OUTSIDE RECORDS SUMMARY | 2024-05-31 12:41 | XMS_ITS | Encounter Summary ---
Author Organization [employer] Address [address] [facility] 7t [place] [address] Care Team Providers Care Manager Radiation Name Role Phone Name, Bobby GRADY Primary Care Provider [phone] Inga Magaña PharmD Unavailable [phone] Reason for Visit * Reason Onset Date Comments Med Refill 01/20/2023 Encounter Details Date Type Department Care Team ([facility] st Contact Info) Description 01/20/2023 Telephone [facility] [address] [place] [address] Name, MD Bobby [address] [place] [address] Med Refill Social History Tobacco Use Types [...] Description 05/31/2024 1:15 PM EST Office Visit [facility] [address] [place] [address] Name, MD Bobby [address] [place] [address] 06/17/2024 10:00 AM EDT Telemedicine [facility] [address] [place] [address] Skye Melton, HODA documented as of this encounter Goals Goal Patient Goal Type Associated Problems Recent Progress Patient-Stated? Author Smoking cessation General No Inga Magaña, PharmD documented as of this encounter Visit Diagnoses Not on filedocumented in this encounter Additional Health Concerns Assessment Noted Time PHQ-9 Depression Total Score: 0 03/11/20 22 11:47 AM EST documented as of this encounter Care Teams Manager Radiation Relationship Specialty Start Date End Date Name, MD Bobby [address] [place] [address] PCP - General Family Medicine 06/01/15 Inga Magaña, Lucio [address] [place] [address] Pharmacist Internal Medicine 01/07/23 09/29/23 documented as of this encounter
--- OUTSIDE RECORDS SUMMARY | 2024-05-31 12:41 | XMS_ITS | Encounter Summary ---
Author Organization [employer] Address [address] [place] [address] 7t [place] [address] Care Team Providers Care Auditor Tax Name Role Phone Name, Bobby GRADY Primary Care Provider [phone] Inga Magaña PharmD Unavailable [phone] Reason for Visit * Reason Comments Med Refill Encounter Details Date Type Department Care Team (Late st Contact Info) Description 10/03/2022 Refill [facility] [address] [place] [address] Name, MD Bobby [address] [place] [address] Lumbar radiculopathy Social History Tobacco Use Types [...] Description 05/31/2024 1:15 PM EST Office Visit [facility] [address] [place] [address] Name, MD Bobby [address] [place] [address] 06/17/2024 10:00 AM EDT Telemedicine [facility] [address] [place] [address] Skye Melton, HODA documented as of this encounter Visit Diagnoses Diagnosis Lumbar radiculopathy Thoracic or lumbosacral neuritis or radiculitis, unspecified documented in this encounter Additional Health Concerns Assessment Noted Time PHQ-9 Depression Total Score: 0 03/11/20 11:47 AM EST documented as of this encounter Care Teams Auditor Tax Relationship Specialty Start Date End Date Name, MD Bobby [address] [place] [address] PCP - General Family Medicine 06/01/15 Inga Magaña PharmD [address] [place] [address] Pharmacist Internal Medicine 01/07/23 09/29/23 documented as of this encounter
--- OUTSIDE RECORDS SUMMARY | 2024-05-31 12:41 | XMS_ITS | Encounter Summary ---
Author Organization [employer] Address [address] [facility] 7t [place] [address] Care Team Providers Care Senior Specialist Name Role Phone Name, Bobby GRADY Primary Care Provider [phone] Reason for Visit * Reason Onset Date Comments Med Refill 05/31/2024 Encounter Details Date Type Department Care Team (Late st Contact Info) Description 05/31/2024 Refill [facility] [address] [place], [place] [phone] Name, MD Bobby [address] [place] [address] Social History Tobacco Use Types Packs/Day Years [...] Description 05/31/2024 1:15 PM EST Office Visit [address] [address] Name, MD Bobby [address] [place] [address] 06/17/2024 10:00 AM EDT Telemedicine [address] [address] Skye Melton, HODA documented as of this encounter Goals Goal Patient Goal Type Associated Problems Recent Progress Patient-Stated? Author Smoking cessation General No Inga Magaña, PharmD documented as of this encounter Visit Diagnoses Not on filedocumented in this encounter Additional Health Concerns Assessment Noted Time PHQ-9 Depression Total Score: 0 06/19/19 24 10:09 AM EDT documented as of this encounter Care Teams Senior Specialist Relationship Specialty Start Date End Date NameBobby MD [address] [place] [address] PCP - General Family Medicine 06/01/15 documented as of this encounter
--- OUTSIDE RECORDS SUMMARY | 2024-05-31 12:41 | XMS_ITS | Encounter Summary ---
Author Organization [employer] Address [address] [facility] 7 [place] [address] Care Team Providers Care Wire Sawyer Name Role Phone Name, Bobby GRADY Primary Care Provider [phone] Reason for Visit * Reason Onset Date Comments Hospital Follow-up 05/17/2024 Encounter Details Date Type Department Care Team ([facility] st Contact Info) Description 05/17/2024 Telephone [facility] [address] [place] [address] Name, MD Bobby [address] [place] [address] Hospital Follow-up Social History Tobacco Use Types [...] the past 12 months, has t he [employer], gas, oil or water [employer] threatened to shut off services in your [...] encounter Miscellaneous Notes * Telephone Encounter - Maria Eugenia Vickers - 05/17/2024 4:01 PM EST Tc from pt requesting a HDF appt. Hospital: [facility] [place] Date of admission: 04/06/2024 Discharge date: 05/12/2024 Diagnosed: RSV , Influenza A+B , COPD *Send message to [place] [facility]ordinators documented in this encounter Plan of Treatment Upcoming Encounters Date Type Department Care Team (Late st Contact Info) Description 05/31/2024 1:15 PM EST Office Visit [facility] [address] [place] [address] Name, MD Bobby [address] [place] [phone] 06/17/2024 10:00 AM EDT Telemedicine [facility] [address] [place] [address] Skye Melton, HODA documented as of this encounter Goals Goal Patient Goal Type Associated Problems Recent Progress Patient-Stated? Author Smoking cessation General No Inga Magaña, PharmD documented as of this encounter Visit Diagnoses Not on filedocumented in this encounter Additional Health Concerns Assessment Noted Time PHQ-9 Depression Total Score: 0 06/19/19 24 10:09 AM EDT documented as of this encounter Care Teams Wire Sawyer Relationship Specialty Start Date End Date Name, MD Bobby [address] [place] [address] PCP - General Family Medicine 06/01/15 documented as of this encounter
--- OUTSIDE RECORDS SUMMARY | 2024-05-31 12:41 | XMS_ITS | Encounter Summary ---
Author Organization [employer] Address [address] [facility] 7t [place] [address] Care Team Providers Care Soft Tile Setter Name Role Phone Name, Bobby GRADY Primary Care Provider [phone] Reason for Visit * Reason Comments Med Refill Encounter Details Date Type Department Care Team ([facility] st Contact Info) Description 05/28/2024 Refill [facility] [address] [place], [place] [phone] Name, MD Bobby [address] [place] [address] Social History Tobacco Use Types Packs/Day Years [...] Description 05/31/2024 1:15 PM EST Office Visit [address] [address] Name, MD Bobby [address] [place] [address] 06/17/2024 10:00 AM EDT Telemedicine [address] [address] Skye Melton, HODA documented as of this encounter Goals Goal Patient Goal Type Associated Problems Recent Progress Patient-Stated? Author Smoking cessation General No Inga Magaña, PharmD documented as of this encounter Visit Diagnoses Not on filedocumented in this encounter Additional Health Concerns Assessment Noted Time PHQ-9 Depression Total Score: 0 06/19/19 24 10:09 AM EDT documented as of this encounter Care Teams Soft Tile Setter Relationship Specialty Start Date End Date NameBobby MD [address] [place] [address] PCP - General Family Medicine 06/01/15 documented as of this encounter
--- OUTSIDE RECORDS SUMMARY | 2024-05-31 12:41 | XMS_ITS | Encounter Summary ---
Author Organization [employer] Address [address] [place] [address] 7t [place] [address] Care Team Providers Care Cleaning Custodian Name Role Phone Name, Bobby GRADY Primary Care Provider [phone] Inga Magaña PharmD Unavailable [phone] Reason for Visit * Reason Comments Med Refill Encounter Details Date Type Department Care Team (Late st Contact Info) Description 05/15/2022 Refill [facility] [address] [place] [address] Name, MD Bobby [address] [place] [address] Seasonal allergic rhinitis, unspecified trigger (Primary Dx) [...] Description 05/31/2024 1:15 PM EST Office Visit [facility] [address] [place] [address] Name, MD oBbby [address] [place] [address] 06/17/2024 10:00 AM EDT Telemedicine [facility] [address] [place] [address] Skye Melton, HODA documented as of this encounter Visit Diagnoses Diagnosis Seasonal allergic rhinitis, unspecified trigger- Primary documented in this encounter Additional Health Concerns Assessment Noted Time PHQ-9 Depression Total Score: 0 03/11/20 11:47 AM EST documented as of this encounter Care Teams Cleaning Custodian Relationship Specialty Start Date End Date Name, MD Bobby [address] [place] [address] PCP - General Family Medicine 06/01/15 Inga Magaña PharmD [address] [place] [address] Pharmacist Internal Medicine 01/07/23 09/29/23 documented as of this encounter
--- OUTSIDE RECORDS SUMMARY | 2024-05-31 12:41 | XMS_ITS | Encounter Summary ---
Author Organization [employer] Address [address] [place] [address] 7t [place] [address] Care Team Providers Care Windsurfing Instructor Name Role Phone NameBobby MD Primary Care Provider [phone] Inga Magaña PharmD Unavailable Encounter Details Date Type Department Care Team (Late st Contact Info) Description 09/01/2022 Abstract [facility] [address] [place] [phone] Bobby David MD [address] [place] [address] Social History Tobacco Use Types Packs/Day Years [...] Description 05/31/2024 1:15 PM EST Office Visit [facility] [address] [place] [address] [phone] Bobby David MD [address] [place] [address] 06/17/2024 10:00 AM EDT Telemedicine [facility] [address] [place] [address] Skye Melton, RN documented as of this encounter Visit Diagnoses Not on filedocumented in this encounter Additional Health Concerns Assessment Noted Time PHQ-9 Depression Total Score: 0 03/11/20 11:47 AM EST documented as of this encounter Care Teams Windsurfing Instructor Relationship Specialty Start Date End Date Name, MD Bobby [address] [place] [address] PCP - General Family Medicine 06/01/15 Inga Magaña PharmD [address] [place] [address] Pharmacist Internal Medicine 01/07/23 09/29/23 documented as of this encounter
--- OUTSIDE RECORDS SUMMARY | 2024-05-31 12:41 | XMS_ITS | Continuity of Care Document ---
Author Organization [facility] [place] [address] Care Team Providers Care Application Packager Name Role Phone [facility] OTHER NAME, MOHINI Primary Care Provider Assessment Encounter Date Assessment Date Assessment LastModified by Organization Details LastModified Time 05/11/2024 05/11/2024 Labs 05/05: Na 144-K 3.9-Bun 19- Cr 0.7-wbc 13.8-hgb 15-hct 47.2 Labs 04/27:Na 129-K 4.0-Bun 38-Cr 0.7-wbc 15.9-hgb 15.2- hct 45-plt 240 Not available 05/11/2024 16:44:46 Plan of Treatment Reminders Order Date Submit [...] exacerbatio n of chronic obstructive pulmonary disease 876176829 Active 2024 Not Available [facility] 13:13:30 Pneumonia caused by Influenza A virus 839784022 Active 2024 Not Available [facility] 12:06:26 Pneumonia caused by respiratory syncytial virus 627305964 Active 2024 Not Available [facility] 12:06:27 Type 2 diabetes mellitus 29248392 Active 2024 Not Available [facility] 5 12:09:46 Essential hypertensio n 74113597 Active 2024 Not Available [facility] 5 12:10:17 Hypothyroid ism 45882636 Active 2024 Not Available [facility] 5 12:10:48 Gastroesoph ageal reflux disease without esophagitis 031304165 Active 2024 Not Available [facility] 5 12:11:49 Primary gout 10739583 Active 2024 Not Available [facility] 5 12:11:50 Muscle weakness 19619941 Active 2024 Not Available [facility] 5 09:55:06 Unsteady when standing 621282101 Active 2024 Not Available [facility] 5 09:56:09 Difficulty walking 632706605 Active 2024 Not Available [facility] 5 09:56:40 Chronic obstructive pulmonary disease 90413005 Active 2024 GEETA KWOK [address] [facility], [address], [place], [address] , [employer] [facility] 5 14:52:55 Leukocytosi s 868256376 Active 2024 from steriod use GEETA KWOK [address] [facility], [address], [place], [address] , [employer] [facility] 5 14:54:46 Coronary arterioscle rosis 42285652 Active 2024 GEETA KWOK [address] , [address], [place], [address] , [employer] [facility] 5 15:05:30 Gout 93968572 Active 2024 GEETA KWOK [address] [facility], [address], [place], [address] , [employer] [facility] 5 15:09:53 Allergic rhinitis 20669835 Active 2024 GEETA KWOK [address], [address], [place], [address] , [facility] [email or web address] [facility] 5 15:17:53 Smoker 36868162 Active 2024 GEETA KWOK [address], [address], [place], [address] , [facility] [facility] 5 15:27:03 Uncomplicat ed asthma 437819878 Active 2024 Not Available [facility] 5 14:07:57 Old myocardial infarction 0281422 Active 2024 Not Available [facility] 5 14:08:17 Obstructive sleep apnea syndrome 73642407 Active 2024 Not Available [facility] 5 14:09:00 Disorder of nervous system due to type 2 diabetes mellitus 049163741 Active 2024 Not Available [facility] 5 14:09:32 Problem Notes None recorded. Medical Equipment None Reported. Allergies Allergen ID Allergen Name Allergen Category Reaction Reaction Severity Criticality Documentation Date Start Date Code Code System Note Provider Name and Address Organization Details Recorded Time 13373 Product containin g angiotens in-conver ting enzyme inhibitor (product) medicatio n angioedem a severe Not available 04/28/20242024 86364 009 SNOMED Not Available Not Available Not Available 18853 enalapril Not available Not available Not available high 04/28/20242017 3827 RxNorm Other react ion(s ): Anaph ylaxi s Not Available Not Available Not Available 97699 metformin medicatio n Not available Not available Not available 04/28/20242024 6809 RxNorm Not Available Not Available Not Available 33944 hydromorp cb medicatio n Not available Not available high 04/28/20242022 3423 RxNorm Other react ion(s ): TINGL ING, PT DOES NOT LIKE THE FEELI NG MED GIVES HER Not Available Not Available Not Available 43409 azithromy josephine medicatio n Not available Not available Not available 05/03/2024 89935 RxNorm Not Available Not Available Not Available 33478 erythromy josephine medicatio n anaphylax is Not available high 05/03/20242010 4053 RxNorm Other react ion(s ): Hives /Urti caria , pustu les over entir e body, Unkno wn Other React ion(s ): Unkno wn Not Available Not Available Not Available 79692 lisinopri l medicatio n Not available Not available Not available 05/03/2024 43420 RxNorm Not Available Not Available Not Available 61001 metoprolo l Not available Not available Not [...] Not Available Not Available No t Available [email or web address] Ultra Test strips USE DIRECTED TO TEST [...] Maria Guadalupe Pen Needle 32 gauge x 32 USE DIRECTED TO TEST BLOOD SUGAR FIVE [...] lable Vitals Date Recorded Body height Body temperature Respiratory rate Heart rate Oxygen saturation Oxygen saturation in Arterial blood by Pulse oximetry Provider Name and Address Organization Details Last Updated DateTime 5 165.1 cm 97.4 [degF] 20 /min 72 /min 95 % 95 % GEETA KWOK [address] [facility], [address], [place], [address], [employer] 16:23:28 Social History Question Answer Notes LastModified by Organization Details LastModified Time Tobacco Smoking Status Former Smoker quit 2018, then started again, now none x 2 months. Chiquita Guardado MD [address] [facility], [address], [place], [address], [employer] [facility] 05/03/2024 22:40:28 Do You Have An Advance Directive? Yes Information not available 05/01/2024 What Is Your Level Of Alcohol Consumption? None Information not available 05/01/2024 What Is Your Code Status? Full Code Information not available 05/01/2024 Where Do You Live? [place] With Information not available 05/03/2024 Legal Guardian? No Informati on not available 05/03/2024 Do You Have A Medical Power Of Medical Collector? Yes Information not available 05/03/2024 What Was [...] Details Recorded Time Tdap 0 completed Samuel Chappell [facility] 04/29/2024 12:14:00 Tdap 3 completed Samuel Chappell [facility] 04/29/2024 12:14:06 Pneumococcal conjugate PCV 13 3 completed Samuel Chappell [facility] 04/29/2024 12:14:27 pneumococcal polysaccharide PPV23 0 completed Samuel Chappell [facility] 04/29/2024 12:14:43 influenza, unspecified formulation 1 completed Samuel Chappell [facility] 04/29/2024 12:15:03 influenza, unspecified formulation 2 completed Samuel Chappell [facility] 04/29/2024 12:15:20 influenza, unspecified formulation 3 completed Samuel Chappell [facility] 04/29/2024 12:15:25 influenza, unspecified formulation 4 completed Samuel Floyds-Malik [facility], [facility] 04/29/2024 12:15:30 SARS-COV-2 (COVID-19) vaccine, UNSPECIFIED 1 completed Samuel Floyds-Malik null, [facility] 04/29/2024 12:16:07 SARS-COV-2 (COVID-19) vaccine, UNSPECIFIED 1 completed Samuel Jacks-Malik [facility] 04/29/2024 12:16:12 SARS-COV-2 (COVID-19) vaccine, UNSPECIFIED 1 completed Samuel Jacks-Malik [facility] 04/29/2024 12:16:16 SARS-COV-2 (COVID-19) vaccine, UNSPECIFIED 2 completed Samuel Everetts-Malik [facility] 04/29/2024 12:16:21 SARS-COV-2 (COVID-19) vaccine, UNSPECIFIED 2 completed Samuel Everetts-Malik [facility] 04/29/2024 12:16:27 SARS-COV-2 (COVID-19) vaccine, UNSPECIFIED 3 completed Samuel Everetts-Malik [facility] 04/29/2024 12:16:41 SARS-COV-2 (COVID-19) vaccine, UNSPECIFIED 4 completed Samuel Everetts-Malik [facility] 04/29/2024 12:16:51 zoster, unspecified formulation 3 completed [facility] 12:17:13 zoster, unspecified formulation 3 completed [facility] Jacks-Malik [facility] 04/29/2024 12:17:19 Past Encounters Encounter ID Performer Location Encounter Start Date Encounter Closed Date Diagnosis/Indication Diagnosis SNOMED-CT Code Diagnosis ICD10 Code Diagnosis Note [id number] [place] [address] 04/29/2024 10:45:26 05/03/2024 09:36:15 Chronic obstructive pulmonary disease 34347000 J44.9 05/01 RSV/Influe nzaon presentati on O2 sats as low as 83 % and tachypneic 26tx inpatient with IV steroids, neb tx and abxcont doxycyclin e BID for 2 more dayscont on neb tx prn, albuterol inhaler prncont trelegy, respimat, dupixent. roflumilas tnow on prednisone taper , resume 2.5 mg when tapercompl etedmonito r resp status. Type 2 asa betes mellitus 32192695 E11.9 hx of neuropathy On trulicity, Insulin SSC, lyrica, jardiancec ont lantus at hsrobaxin prn for neuropathy painmonito r BGL TID Hypothyroidism 40073685 E03.9 continue on levothyrox inemonitor tsh prn Coronary arteriosclerosis 07986568 I25.10 HX of HLD, HTNon statincont on asamonitor for cardiac sx Essential hypertension 64786960 I10 cont on coreg dailymonit or BP Gout 78445235 M10.9 cont allopurino l dailyfollo w uric acid level prn Smoker 85538726 F17.200 reports that she has not smoked in 1 monthnow on nicotine patch 21 mgprovide support for cessation Hyperlipidemia 18529432 E78.5 cont atorvastat inmonitor labs prn Gastroesop hageal reflux disease without esophagitis 862768153 K21.9 cont omeprazole dailymonit or GI sx Allergic rhinitis 351423 04 J30.9 cont on fluticason e, montelukas t, cetirizine Leukocytosis 857923262 D 72.829 chronic from chronic steriod usefollow labs Low back pain 790326959 M54.50 cont lido patch qdpercocet prnon robaxin for neuropathy as well [id number] MD SCOTT Harris [address] [place] [address] 05/03/2024 17:29:21 05/16/2024 12:42:00 Chronic obstructive pulmonary disease 61039810 J43.8 S/P several recent exacerbati ons, now back to baseline.C ompleted doxycyclin e 100 mg BID on 2Continu e slow prednisone taper.Cont inue trelegy 100/62.5/2 5 mcg qd, dupixent 300 mg q 2 wks, combivent 2 puffs BID, roflumilas t 500 mcg qd, montelukas t 10 mg qd, and duonebs and/or albuterol MDI q 4 hrs prn.Monito r resp status.F/U with pulmonary as planned. Type 2 asa betes mellitus 30317241 E11.42 Some high sugars since here, likely due to prednisone , expect improvemen t as taper continues. Continue Lantus 35U BID, Trulicity 1.5 mg weekly, Jardiance 10 mg qd, and SSI.Contin ue Lyrica 100 mg TID and methocarbo mol 750 mg q 8 hrs prn for neuropathy pain.Monit or fingerstic ks TID and HgA1C as outpt. Hypothyroidism 59404205 E03.8 Continue on levothyrox ine 112 mcg qdMonitor TSH as outpt. Coronary arteriosclerosis 43609232 I25.10 No recent sxs.Contin ue atorvastat in 80 mg qd, carvedilol 6.25 mg BID (hold for SBP<90), and ASA 81 mg qd.Monitor for sxs.F/U with cardio as planned. Essential hypertension 80736575 I10 Good control on meds as above.Chantel tor BP and labs. Gout 30212256 M10.09 No current sxs.Contin ue allopurino l 100 mg qdMonitor for flare. Smoker 49491362 F17.200 No longer smoking since recent hospitaliz ations.Con tinue nicotine patch 21 mg qd, taper as outpt.Cont inue to encourage abstinence . Hyperlipidemia 36462343 E78.49 Continue atorvastat in 80 mg qdMonitor labs as outpt. Gastroesop hageal reflux disease without esophagitis 705767388 K21.9 No current sxs.Contin ue omeprazole qdMonitor GI sxs Allergic rhinitis 030561 04 J30.89 Continue fluticason e nasal spray, montelukas t, and cetirizine Monitor sxs. Leukocytosis 571741214 D 72.828 Thought to be due to prednisone .Monitor Low back pain 711522398 M54.59 Under fair control.Co ntinue robaxin and Lyrica as above and lidocaine patch qd, and Percocet 7.5/325 mg q 6 hrs prn.PT/OT as above. Intertrigo 95812220 L30. 4 Continue diflucan 150 mg qod x 3 doses and will start nystatin cream BID.Monito r for healing. Asthenia 07286071 R53.1 Very deconditio bernice.Needs PT/OT for strengthen ing, balance, gait training, safety and function.C ontinue fall precaution s.Monitor for safety. [id number] [place] [address] 05/04/2024 11:59:27 05/16/2024 14:09:43 Viral pharyngitis 6591932 B34.9 throat and tonsil noted with erythema and slight swelling, not exudateswi ll add lozenges take 1 prn Q2 and warm water and salt rinses for comfort qid prn Intertrigo 61642688 L30. 4 acute onset over 1-2 dayserythe matous and scattered dry patchy rash noted covering vast majority of left and right buttockscu rrently rx diflucan qod for 3 dosesdue to pruritis will add clotrimazo le/beta BID for 10 daydiscuss ed with nursing will re eval in [id number] [place] [address] 05/05/2024 12:08:09 05/10/2024 11:42:42 Chronic obstructive pulmonary disease 73814101 J44.9 2/2 RSV/Influe aDoing [facility] ed off K4Msqbpqan off prednisone .Doxy completed. Continue nebs and inhalers.C ombivent dose currently 2 inh bid, not typical but will not change as med managed by [facility].Monito r Type 2 asa betes mellitus 99091771 E11.9 BS borderline low in am and at lunchStill on prednisone taper.Disc ussed with pt.Plan -Continue trulicity and jardiance and SSIReduce lantus to 25 units q HS, continue 35 units in amAdd large portions to diet, refer to wire frame lamp shade maker per pt. request, and assure HS snack (manuela crackers and PB on dinner tray)Monit or closely and adjust meds as needed. Hypothyroidism 89269922 E03.9 continue on levothyrox inemonitor tsh prn Coronary arteriosclerosis 51216778 I25.10 HX of HLD, HTNon statin, coreg, ASAmonitor for cardiac sx Essential hypertension 42173745 I10 cont on coreg dailymonit or BP Gout 43139813 M10.9 cont allopurino l dailyfollo w uric acid level prn Smoker 92204790 F17.200 reports that she has not smoked in 1 monthnow on nicotine patch 21 mgprovide support for cessation Hyperlipidemia 69844182 E78.5 cont atorvastat inmonitor labs prn Gastroesop hageal reflux disease without esophagitis 867037346 K21.9 cont omeprazole daily - came in on this doseUnsure of baseline, but will continue this dose for now, mahesh. with higher doses of prednisone .Consider dose taper when more stable and if stays LTC.monito r GI sx Allergic rhinitis 225223 04 J30.9 cont on fluticason e, montelukas t, cetirizine Leukocytosis 660132609 D 72.829 chronic from chronic steriod use - improving. 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 [id number] MIGUE BRISENO, GEETA CHAVEZ [address] [place] [address] 05/11/2024 13:31:15 05/12/2024 14:06:40 Type 2 diabetes mellitus 84593551 E11.9 BS borderline low in am and at lunchStill on prednisone taper.Cont inue trulicity and jardiance and SSIReduce lantus to 25 units q HS, continue 35 units in amMonitor closely and adjust meds as needed. Dermal mycosis 41648297 B36.9 Breast folds, buttocksCo ntinue diflucan and topical antifungal /steroid cream.Keep areas clean and dryMonitor closely. Gastroesop hageal reflux disease without esophagitis 747699686 K21.9 cont omeprazole daily - came in on this doseUnsure of baseline, but will continue this dose for now, mahesh. with higher doses of prednisone .Consider dose taper when more stable and if stays LTC.monito r GI sx Chronic ob structive pulmonary disease 42635833 J44.9 2/2 RSV/Influe nzaDoing betterWean ed off O1Hzbsabzk off prednisone .Doxy completed. Continue nebs and inhalers.C ombivent dose currently 2 inh bid, not typical but will not change as med managed by [facility].Monito r Leukocytosis 101670081 D 72.829 chronic from chronic steriod use - improving. follow labs Essential hypertension 75547216 I10 cont on coreg dailymonit or BP Smoker 32274997 F17.200 reports that she has not smoked in 1 monthnow on nicotine patch 21 mgprovide support for cessation Pressure i njury of coccygeal region of back stage II 0471872059 3697655 L89.152 patient reporting coccyx painfollow ed by wound NPreiterat ed HAND SHAKER recommenda tions to Turn, reposition & offload Q2 hours & PRN to aid in wound healing. Encourage appropriat e dietary supplement ation to aid in wound healing. Health Concerns Section Related Observation LastModified by Organization Detai ls LastModified Time None Recorded Concern Status LastModified by Organization Details LastModified Time None Recorded Payers Encounter Date Sequence Insurance Name Policy Number Policy Mendez Covered Member ID Mendez Member ID Guarantor Name 05/11/2024 1 [facility] - DOS ON OR AFTER 2022 - MEDICARE ADVANTAGE [place] (MEDICARE REPLACEMENT/ADV ANTAGE - PPO) Marita Lawrence [id number] Marita Lawrence Notes Date Note Type Note Provider Name and Address Organization Details Recorded Time 05/11/2024 text/html This is a 63 yr old [...] is nio acute concerns. GEETA KWOK [address] [facility], [address], [place], [address], [facility] - [email or web address] 05/11/2024 16:45:23 OBGyn Episode No OBEpisode recorded.
--- OUTSIDE RECORDS SUMMARY | 2024-05-31 12:41 | XMS_ITS | Encounter Summary ---
Author Organization [employer] Address [address] [facility] [address] [place] [address] Care Team Providers Care Html Developer Name Role Phone Name, Bobby GRADY Primary Care Provider [phone] Reason for Visit * Reason Comments Med Refill Encounter Details Date Type Department Care Team ([facility] st Contact Info) Description 05/23/2024 Refill [facility] [address] [place], [place] [id number] Name, MD Bobby [address] [place] [address] Chronic low back pain with sciatica, sciatica [...] the past 12 months, has t he [employer], gas, oil or water [employer] threatened to shut off services in your [...] Telephone Encounter - Skye Melton RN - 05/23/2024 2:25 PM EST TC to patient, reviewed recent Percocet scripts she's received from outside provider: 04/28/24 Percocet 7.5mg #30 and 05/09/24 Percocet 7.5mg #30. Patient states she currently has 32 Percocet remaining. Discussed her new refill date would be 06/02/24. Will forward her request to PCP on 05/31/24. documented in this encounter Plan of Treatment Upcoming Encounters Date Type Department Care Team (Late st Contact Info) Description 05/31/2024 1:15 PM EST Office Visit [facility] [address] [place] [address] Name, MD Bobby [address] [place] [phone] 06/17/2024 10:00 AM EDT Telemedicine [facility] [address] [place] [id number] Skye Melton, RN documented as of this [...] documented as of this encounter Care Teams Html Developer Relationship Specialty Start Date End Date Name, MD Bobby [address] [place] [address] PCP - General Family Medicine 06/01/15 documented as of this encounter
--- OUTSIDE RECORDS SUMMARY | 2024-05-31 12:41 | XMS_ITS | Data Portability ---
Author Organization [employer] Address [address] [place] [phone] Care Team Providers Care Quality Control Tester Name Role Phone HIM CCA OTHER NAME, MOHINI Primary Care Provider [phone] Assessment Encounter Date Assessment Date Assessment LastModified by Organization Details LastModified Time 05/27/2023 05/27/2023 I provided real -time medical direction via phone for this encounter, and was available for additional phone based assistance as needed. I have reviewed and agree with the Assessment and Plan as documented by the Spooling Supervisor. We discussed the diagnostic uncertainty of home [...] to call 911- verbalized understanding of instructions [email or web address] Not available 05/27/2023 10:52:57 08/31/2023 08/31/2023 Ms. [...] did a neb one hour prior to secretary of state arrival. VSS, SpO2 95% on RA. Spooling Supervisor on site reports wheezing b/l. Allergy to azithromycin. Will treat with prednisone taper; she had good relief and tolerated her last prescription from [facility] well and will treat similarily. Given 40mg PO predisone on site and rx sent to pharmacy. [email or web address] Not available 08/31/2023 11:33:22 10/19/2023 10/19/2023 service called for cough, RASCON found 62 rusty with Hx COPD on daily 5mg prednisone [...] 2 Ag, QL IA, respiratory specimen 2023 [facility], [address] [place] [address], [id number], 4 18:31:32 rapid flu (A+B) 2023 024 [facility], [address] [place] [address], [id number], 4 18:31:52 BMP, serum or plasma [address], [address], 4 18:32:18 rapid SARS CoV 2 Ag, QL [place], respiratory specimen [address], [address], 4 09:38:44 rapid flu (A+B) 2023 024 [facility], [address] [place] [address], [id number], 4 09:37:23 rapid strep group A, throat 2023 024 [facility], [address] [place] [address], [id number], 4 09:37:50 BMP, serum or plasma [facility]23 [facility] [address] [place] [address], [id number], 4 09:38:18 rapid SARS CoV 2 Ag, QL IA, respiratory specimen 2023 024 [email or web address] 0 [facility], [address] [place] [address], [id number], 4 11:19:29 rapid flu (A+B) 2023 024 [email or web address] 0 [facility], [address] [place] [address], [id number], 4 11:19:31 rapid strep group A, throat 2023 024 [email or web address] 0 [facility], [address] [place] [address], [id number], 4 11:19:33 glucose, fingerstick , blood 2023 024 [email or web address] 0 [facility], [address] [place] [address], [id number], 4 11:30:51 Referral None recorded. Procedures None recorded. Surgeries None recorded. Imaging None recorded. Medication Orders methylpredn isolone sod succ (PF) 125 mg/2 mL solution for injection 2023 [facility], [address] [place] [address], [id number], 4 11:53:19 doxycycline hyclate 100 mg capsule 2023 024 [facility], [address] [place] [address], [id number], 4 14:23:57 doxycycline hyclate 100 mg capsule 2023 024 [facility], [address] [place] [address], [id number], 4 11:53:19 ipratropium 0.5 mg-albutero l 3 mg (2.5 mg base)/3 mL nebulizatio n soln 2023 024 [facility], [address] [place], [place], [id number], 4 11:53:19 prednisone 10 mg tablet 2023 024 [facility], [address] [place] [address], [id number], 4 14:23:58 magnesium sulfate 2 gram/50 mL in 0.9 % sodium chloride IV piggyback 2023 024 [facility], [address] [place] [address], [id number], 4 11:53:19 cefpodoxime 200 mg tablet 2023 024 [facility], [address] [place] [address], [id number], 4 13:59:54 prednisone 20 mg tablet 2023 024 [facility], [address] [place] [address], [id number], 4 17:38:03 prednisone 10 mg tablet 2023 024 [facility], [address] [place] [address], [id number], 4 13:59:54 prednisone 10 mg tablet 2023 024 [facility], [address] [place] [address], [id number], 4 12:00:49 prednisone 20 mg tablet 2023 024 [email or web address] [facility], [address] [place] [address], [id number], 4 11:33:48 prednisone 10 mg tablet 2023 024 [email or web address] [id number], [address] [place], [id number], 4 11:18:33 albuterol sulfate 2.5 mg/3 mL (0.083 %) solution for nebulizatio n 2023 024 [email or web address] 0 Not available 4 11:19:26 prednisone 20 mg tablet 2023 024 [email or web address] 0 Not available 4 11:19:25 prednisone 20 mg tablet 2023 024 [facility], [address] [place] [address], [id number], 4 13:43:28 Patient TargetsNo targets recorded. Patient InstructionsNo instructions recorded. Reason for Referral None Reported. Results Created Date Observation Date Name Description Value Unit Range Abnormal Flag Note LastModifiedBy Organization Detail LastModifiedTime 05/27/19 24 05/27/2023 gluco se, david harman k, blood Blood Glucose: mg/dl 302 Not Available [facility] [address] [place] [address], [id number], 05/27/2023 11:19:35 05/27/19 24 05/27/2023 rapid flu (A+B) Flu negati ve Not Available [facility] [address] [place] [address], [id number], 05/27/2023 10:53:07 05/27/19 24 05/27/2023 rapid strep group A, throa t Strep negati ve Not Available [facility] ed [address] [place] [address], [id number], 05/27/2023 11:12:09 05/27/19 24 05/27/2023 rapid SARS CoV 2 Ag, QL IA, respi rator y speci men rapid SARS CoV 2 Ag, QL IA, respiratory specimen negati ve Not Available [facility] ed [address] [place] [address], [address], 05/27/2023 10:53:06 12/24/19 24 12/24/2023 rapid flu (A+B) Flu negati ve Not Available [facility] ed [address] [place] [address], [address], 12/24/2023 11:22:03 12/24/19 24 12/24/2023 rapid SARS CoV 2 Ag, QL IA, respi rator y speci men rapid SARS CoV 2 Ag, QL IA, respiratory specimen negati ve Not Available [facility] ed [address] [place] [address], [id number], 12/24/2023 11:22:00 Result Notes None recorded. Medical Equipment None Reported. Allergies Allergen ID Allergen Name Allergen Category Reaction Reaction Severity Criticality Documentation Date Start Date Code Code System Note Provider Name and Address Organization Details Recorded Time 4632 azithromy josephine medicatio n Not available Not available Not available 05/27/2023 29679 RxNorm Soila Langston MD [address] [place] [address],[address], [place], [address], [employer], [employer] you roll? 12:02:49 4633 Product containin g angiotens in-conver ting enzyme inhibitor (product) medicatio n Not available Not available Not available 05/27/2023 94196 009 SNOMED Soila Langston MD [address] [place] [address],[address], [place], [address], [employer] 4 12:02:55 4634 metformin medicatio n Not available Not available Not available 05/27/2023 6809 RxNorm Soila Langston MD [address] [facility],[address], [place], [address], [employer], How do you roll? 4 12:03:02 4635 Dilaudid medicatio n Not available Not available Not available 05/27/2023 24341 3 RxNorm AMS Soila Langston MD [address], [place], [address], [employer], How do you roll? 4 12:03:32 6317 erythromy josephine medicatio n Not available Not available Not available 12/24/2023 4053 RxNorm BRANDT ROJO MD [address] [facility],[address], [place], [address], [employer] 4 11:27:47 6318 metoprolo l Not available [...] Not Available Not Available No t Available [employer] Ultra Test strips USE DIRECTED TO TEST [...] MIX AND DRINK BOTTLE DIRECTED BY [facility] t active Not Available Not Available No [...] Details Last Updated DateTime 4 84 /min 71909.8 g 20 /min 98.4 [degF] 152.4 cm 98 % 98 % 137 mm[Hg] 98 mm[Hg] Not Available [employer] 4 10:52:14 Date Recorded Oxygen saturation Oxygen saturation in Arterial blood by Pulse oximetry Heart rate Body temperature Respiratory rate Systolic blood pressure Diastolic blood pressure Provider Name and Address Organization Details Last Updated DateTime 4 93 % 93 % 92 /min 98 [degF] 20 /min 190 mm[Hg] 100 mm[Hg] Not Available [facility] [employer] 4 11:12:07 Date Recorded Oxygen saturation Oxygen saturation in Arterial blood by Pulse oximetry Body height Heart rate Respiratory rate Body weight Body temperature Systolic blood pressure Diastolic blood pressure Provider Name and Address Organization Details Last Updated DateTime 4 95 % 95 % 165.1 cm 85 /min 18 /min 91015.6 4 g 97.4 [degF] 125 mm[Hg] 86 mm[Hg] Not Available [facility] [employer] 4 11:27:44 Date Recorded Heart rate Body weight Respiratory rate Body temperature Body height Oxygen saturation Oxygen saturation in Arterial blood by Pulse oximetry Systolic blood pressure Diastolic blood pressure Provider Name and Address Organization Details Last Updated DateTime 4 96 /min 75315.6 4 g 18 /min 97.9 [degF] 165.1 cm 91 % 91 % 129 mm[Hg] 71 mm[Hg] Not Available [employer] 4 17:19:19 Date Recorded Oxygen saturation Oxygen saturation in Arterial blood by Pulse oximetry Heart rate Respiratory rate Body temperature Systolic blood pressure Diastolic blood pressure Provider Name and Address Organization Details Last Updated DateTime 4 88 % 88 % 80 /min 28 /min 97.9 [degF] 122 mm[Hg] 68 mm[Hg] Not Available [employer] 4 11:18:47 Social History None [...] Soila Langston MD [facility] [address] [place] [address] 05/27/2023 10:52:11 05/27/2023 17:26:09 Acute exacerbation of chronic obstructive pulmonary disease [id number] J44.1 pat has mamadou dawson-- has not taken- advised 1 tid while ill/ was told by pcp to do duo neb q4 hr prn- did last one 20 min captain cannery tender.-She has not been using her rescue inhaler [...] visit if she feels she needs it. [id number] Zev Leger MD [address] [phone] 07/26/2023 11:12:02 07/26/2023 17:20:43 Acute exacerbation of chronic obstructive pulmonary disease [id number] J44.1 This 62-year-ol d female with COPD called [facility] because of increased dyspnea. She uses several inhalers and prednisone 5 mg daily. She doesn't qualify for home oxygen. I ordered a prednisone taper. She will follow-up with her PCP. The patient agreed with this plan. Low back pain [id number] M54.50 [id number] Dasha Eubanks MD [address] [phone] 08/31/2023 11:27:40 09/01/2023 12:35:19 Acute exacerbation of chronic obstructive pulmonary disease [id number] J44.1 [id number] Santos Santoyo MD [address] [address] 10/19/2023 17:19:16 10/20/2023 09:43:42 Acute exacerbation of chronic obstructive pulmonary disease [id number] J44.1 [id number] BRANDT ROJO MD [address] [phone] 12/24/2023 11:18:42 12/24/2023 14:43:17 Acute exacerbation of chronic obstructive pulmonary disease [id number] J44.1 Evaluation in the field was performed by my secretary of state colleague, as noted above, I provided real-time [...] ED for further evaluation . An expect [facility]. Rapid COVID and flu tests were negative.B [...] with the first dose given by the secretary of state. -Continue Zyrtec daily-Afte r she received the [...] the ED for further evaluation . An [facility]. Primary care, consider__ _ Dispositio n: ED [...] Mendez Member ID Guarantor Name 05/27/2023 1 [employer] - DOS ON OR AFTER 2022 - DUAL ELIGIBLE - LONGTERM OPTIONS AND ONE CARE (MEDICARE REPLACEMENT/ADV ANTAGE - HMO) Marita Lawrence [id number] Marita Lawrence 07/26/2023 1 [employer] - DOS ON OR AFTER 2022 - DUAL ELIGIBLE - LONGTERM OPTIONS AND ONE CARE (MEDICARE REPLACEMENT/ADV ANTAGE - HMO) Marita Washingtonger [id number] Marita Lawrence 08/31/2023 1 [employer] - DOS ON OR AFTER 2022 - DUAL ELIGIBLE - LONGTERM OPTIONS AND ONE CARE (MEDICARE REPLACEMENT/ADV ANTAGE - HMO) Marita Lawrence [id number] Marita Lawrence 10/19/2023 1 [employer] - DOS ON OR AFTER 2022 - DUAL ELIGIBLE - LONGTERM OPTIONS AND ONE CARE (MEDICARE REPLACEMENT/ADV ANTAGE - HMO) Marita Washingtonger [id number] Marita Lawrence 12/24/2023 1 [employer] - DOS ON OR AFTER 2022 - DUAL ELIGIBLE - LONGTERM OPTIONS AND ONE CARE (MEDICARE REPLACEMENT/ADV ANTAGE - HMO) Marita Washingtonger [id number] Marita Lawrence Notes Date Note Type Note Provider Name and Address Organization Details Recorded Time 05/27/2023 text/html HPI: Patient at home with known COPD. Not on oxygen at baseline. Feeling ill with increased SOB FRIT COATER cough. O2 sat at baseline is 96% drops to 92% with exertion. .................. .................. .................. .................. .................. .................. .................. ............... [facility] Nurse Triage Notes (Tashia Lazo): Comments: CRC RN DID NOT NEED FURTHER INFO .................. .................. .................. .................. .................. .................. .................. ............... Spooling Supervisor Note From Cullen Joseph: Pt caox3 answers [...] home. 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 Pt [...] BGL 306mg/dl (no food or insulin today) [facility] orders albuterol neb, prednisone 40mg PO, administered [...] throat except when coughing Soila Langston MD [address] [place] [address],[address], [place], [address], [employer] 05/27/2023 12:35:05 07/26/2023 text/html [facility] Nurse Triage Notes (Miko Vogt): Chief Complaints: Shortness of Breath/Dyspnea PMH: Hypertension, COPD/Asthma, Diabetes, Heart Disease Allergies: Unknown Comments: Route Deliverer verified the member's name//address and phone number. [...] emergency treatment if needed -HODA Whyte MD [address] [place] [address],[address], [place], [phone], [facility] RIZWANATONO 07/30/2023 06:44:37 08/31/2023 text/html [...] in clear full sentences. No distress noted detention attendant. [facility] Reviewed home care advise, ER precautions and reasons to call back. Verified contact information and allergies. .................. .................. .................. .................. .................. .................. .................. ............... [facility] Nurse Triage Notes (Tashia Lazo): Comments: [facility] RN DID NEED FURTHER INFO .................. .................. .................. .................. .................. .................. .................. ............... Spooling Supervisor Note From Ben Delacruz: [facility] visit for female patient with difficulty breathing. [...] cough with thick white mucus. consulted with [facility] Eubanks, who prescribed 40 mg of Prednisone to be given on scene with remainder of prescription called the patient's Pharmacy. Reviewed red flags for ED. patient education provided. [facility] Medication Orders: prednisone 20 mg tablet: Administered .................. .................. .................. .................. .................. .................. .................. ............... Disposition: Fulfilled Dasha Eubanks MD [address] [place] [address],[address], [place], [phone], [employer] 08/31/2023 17:40:50 10/19/2023 text/html [facility] Nurse Triage Notes (Miko Vogt): Reason For Request: sob/hx COPD Chief Complaints: Shortness of Breath/Dyspnea PMH: Hypertension, COPD/Asthma, Diabetes, Heart Disease Allergies: Metoprolol Comments: Route Deliverer verified the member's name//address and phone number. [...] emergency treatment if needed -Kiran Vogt RN Spooling Supervisor POC Test Results from Ben Delacruz - ALS Rapid influenza antigen (19:05:46) Flu: - Rapid COVID antigen (19:05:52) COVID: - .................. .................. .................. .................. .................. .................. .................. ............... Spooling Supervisor Note From Ben Delacruz: [employer] visit for [...] swabs run and both negative. Consulted with [facility] [place]. Santoyo who prescribed prednisone and cefpedoxime. First dose of prednisone given on scene with remainder of script sent to pharmacy. Reviewed red flags. Pt education provided. .................. .................. .................. .................. .................. .................. .................. ............... Disposition: Fulfilled Santos Santoyo MD [address] [facility],[address], [place], [address], [facility] - TONO WAGONER 10/19/2023 23:50:40 12/24/2023 text/html [facility] Nurse Triage Notes (Miko Vogt): Reason For Request: Pt reporting COPD exacerbation Chief Complaints: Shortness of Breath/Dyspnea, COPD PMH: Hypertension, COPD/Asthma, Diabetes, Heart Disease Allergies: Metoprolol Comments: Route Deliverer verified the member's name//address and phone number. [...] emergency treatment if needed -Kiran Vogt RN Spooling Supervisor Organization Information for [employer] Business Legal Name: [employer]? Address: [address] [place] [address], International Coordinator: Bk Roblero MD CLIA No.: [id number] Spooling Supervisor POC Test Results from [facility] iSTAT [...] .................. .................. .................. .................. .................. .................. ............... Spooling Supervisor Note From Kal Hathaway: Dispatched to above [...] pink warm and dry, good radial pulse. [facility] contacted, ordered Chem 8, IV, Solumedrol, Covid and Flu test and Duoneb. 18g IV established, R AC, lab draw preformed, ISTAT checked, results uploaded. Covid-19 and Flu test checked, both negative. Patient started on Duoneb. 125mg Solumedrol administered IV. Patient reassessed, SPO2 still high 80s on RA, still tachypneic. [facility] updated, ordered 2g Mag IV. Patient administered 2g Mag IV. Patient reassessed with no change. [facility] updated, ordered additional Duoneb. Neb administered. Patient walked about 15 steps to bathroom, became tachypneic in the 30s. [facility] updated, recommends transport to ER for further evaluation. Patient agrees with this. 911 contacted. [facility] responded. Verbal report given to [facility] Spooling Supervisor, took over patient care. Patient being transported to [facility]. SC8 clear. EOR. .................. .................. .................. .................. .................. .................. .................. ............... Disposition: Reina ROJO MD [address] [place] [address],[address], [place], [phone], [facility] TONO WAGONER 12/24/2023 13:27:13 OBGyn Episode No OBEpisode recorded.
--- OUTSIDE RECORDS SUMMARY | 2024-05-31 12:41 | XMS_ITS | Clinical Summary ---
Author Organization [employer] Address [address] [place] [address] 7 [place] [address] Care Team Providers Care Security Vehicle Patrol Officer Name Role Phone Name, Bobby GRADY Primary Care Provider [phone] Allergies Active Allergy Reactions Criticality Noted Date [...] every 4 (four) hours if needed. Active Roflumilast 500 MCG tablet Take 1 tablet by mouth at bed time. Active naloxone (Narcan) 4 mg/0.1 mL nasal spray Administer 0.1 mL into affected nostril(s). Active carvedilol (Coreg) 6.25 MG tablet Take 1 tablet by oral route 2 times every day with food Active atorvastatin (Lipitor) 80 MG tablet Take 1 tablet by mouth at bed time. Active TRUEplus Lancets 33G miscIndications: Type 2 diabetes mellitus without complications ([facility]) Check BG twice daily 100 each 11 Active Alcohol Swabs (Alcohol Prep) 70 % pads USE THREE TIMES DAILY Active D3 Super Strength 50 MCG (1999 UT) capsule Take 1 capsule by mouth 1 (one) time each day. Active Trelegy Ellipta 100-62.5-25 MCG/ACT aerosol powder INHALE 1 PUFF EVERY DAY AT THE SAME TIME Active lidocaine-priloc alexander (Emla) 2.5-2.5 % cream APPLY TO THE AFFECTED AREA(S) ONCE FOR PAIN. APPLY 15-30 MINUTES PRIOR TO QUTENZA ON 10/06/22 Active Blood Glucose Monitoring Suppl (ONE TOUCH [...] 1 mg 2 times daily. 53 each 023 Active cetirizine (ZyrTEC) 10 MG tabletIndication s:Seasonal allergic rhinitis, unspecified trigger TAKE 1 TABLET BY MOUTH EVERY DAY 90 tablet 1 023 Active calcitriol (Rocaltrol) 0.25 MCG capsule Take 0.25 mcg by mouth in the morning. Active tamsulosin (Flomax) 0.4 MG 24 hr capsule TAKE 1 CAPSULE BY MOUTH ONCE DAILY AT BEDTIME FOR 14 DAYS Active BD Pen Needle Maria Guadalupe U/F 32G X 4 MM miscIndications: Type 2 diabetes mellitus with other specified complication, unspecified whether usp insulin use (CMS/HCC) USE DIRECTED FIVE TIMES DAILY 200 each 11 Active fluticasone (Flonase) 50 MCG/ACT nasal spray INSTILL 2 SPRAYS IN EACH NOSTRIL ONCE DAILY 16 g 3 Active celecoxib (CeleBREX) 200 MG capsule TAKE 1 CAPSULE BY MOUTH TWICE DAILY WITH FOOD AND A FULL GLASS OF WATER NEEDED FOR PAIN Active dulaglutide (Trulicity) 1.5 MG/0.5ML solution pen-injectorIndi cations:Type 2 diabetes with complication ([facility]),COPD exacerbation ([facility]) Inject 1.5 mg under the skin 1 (one) time per week. 2 mL 11 Active Aspirin Adult Low Strength 81 MG EC tablet TAKE 1 TABLET BY MOUTH EVERY DAY 90 tablet 1 024 Active montelukast (Singulair) 10 MG tablet TAKE 1 TABLET BY MOUTH EVERY EVENING 90 tablet 1 024 Active omeprazole (PriLOSEC) [address] capsuleIndicatio ns:Lumbar radiculopathy TAKE 1 CAPSULE BY MOUTH TWICE DAILY 30 MINUTES BEFORE MEALS 60 capsule Active senna (Senokot) 8.6 MG tabletIndication s:Lumbar radiculopathy TAKE 2 TABLETS BY MOUTH EVERY DAY 180 tablet 2 024 Active docusate sodium (Colace) 100 MG capsuleIndicatio ns:Drug-induced constipation TAKE 1 CAPSULE BY MOUTH EVERY DAY AT BEDTIME NEEDED 90 capsule 024 Active empagliflozin (Jardiance) 10 MG Take 1 tablet (10 mg) by mouth Once per day. 30 tablet 11 024 2024 Active insulin glargine (Lantus SoloStar) 100 UNIT/ML penIndications:A therosclerosis of coronary artery of [place] heart, unspecified vessel or lesion type, unspecified whether angina present INJECT 35 UNITS SUBCUTANEOUSLY TWICE DAILY IN THE MORNING AND IN THE EVENING 15 mL 5 024 Active OneTouch Ultra Test test stripIndications :Type [...] 6 PUFFS PER DAY) 4 g 5 024 Active ipratropium-albu terol (Duo-Neb) 0.5-2.5 mg/3 mL nebulizer solutionIndicati ons:Chronic obstructive pulmonary disease, unspecified (CMS/HCC) INHALE 1 AMPULE USING A NEBULIZER FOUR TIMES DAILY 360 mL 3 024 Active NovoLOG FLEXPEN 100 UNIT/ML pen INJECT 6 TO 10 UNITS SUBCUTANEOUSLY BEFORE MEALS AND SNACKS DIRECTED 15 mL 5 025 Active pregabalin (Lyrica) 100 MG capsule TAKE 1 CAPSULE BY MOUTH TWICE DAILY FOR 7 DAYS THEN INCREASE TO 1 CAPSULE THREE TIMES DAILY 77 capsule Active allopurinol (Zyloprim) 100 MG tablet Take 1 tablet by mouth Once per day. Active Dupixent 300 MG/2ML solution auto-injector INJECT 600 MG SUBCUTANEOUSLY ONCE, THAN 300 MG SUBCUTANEOUSLY EVERY 2 WEEKS Active levothyroxine (Synthroid, Levoxyl) 112 MCG tablet Take 1 tablet by mouth Once per day. Active nicotine (Nicoderm, Step 1) 21 MG/24HR patch Place 1 patch on the skin in the morning. Active predniSONE (Deltasone) 5 MG tablet Take 1 tablet by mouth Once per day. Active pyridoxine (Vitamin B-6) 50 MG tablet Take 1 tablet by mouth Once per day. Active oxyCODONE-acetam inophen (Percocet) 7.5-325 MG tabletIndication s:Chronic low back pain with sciatica, sciatica laterality unspecified, unspecified back pain laterality TAKE 1 TABLET BY MOUTH EVERY 6 HOURS NEEDED FOR SEVERE PAIN 112 tablet 025 2024 Active methocarbamol (Robaxin) 750 MG tablet TAKE 1 TABLET BY MOUTH EVERY 8 HOURS 120 tablet 1 025 Active methocarbamol (Robaxin) 750 MG tablet Take 1 tablet (750 mg) by mouth every 8 (eight) hours. 120 tablet 1 024 2024 Discontinued oxyCODONE-acetam inophen (Percocet) 7.5-325 MG tabletIndication s:Chronic low back pain with sciatica, sciatica laterality unspecified, unspecified back pain laterality TAKE 1 TABLET BY MOUTH EVERY 6 HOURS NEEDED FOR SEVERE PAIN FOR UP TO 28 DAYS 112 tablet 025 2024 Discontinued predniSONE (Deltasone) 10 MG tablet TAKE 4 TABLETS BY MOUTH EVERY DAY FOR 3 DAYS, 3 TABLETS DAILY FOR 3 DAYS, 2 TABLETS DAILY FOR 3 DAYS, 1 TABLET DAILY FOR 3 DAYS, THEN STOP 025 2024 Active Problems Problem Noted Date [...] neoplasm o f colon 09/30/2023 CAD in [place] artery 09/02/2023 Opioid dependence, daily use 07/27/2023 [...] Encounters Date Type Department Care Team Description 05/31/2024 Refill [facility] [address] [place] [address] NameBobby MD 05/28/2024 Refill [facility] [address] [place] [address] Bobby David MD 05/23/2024 Refill [facility] MEDIC[facility] [address] [place], [place] [phone] Bobby David MD Chronic low back pain with sciatica, sciatica laterality unspecified, unspecified back pain laterality 05/18/2024 Telephone [facility] MEDICINE [address] [place] [address] Bobby David MD FYI 05/17/2024 Patient Outreach [facility] [address] [place] [address] Bobby David MD Transition Of Care (Tcm) (HDF scheduled. /) 05/17/[address] [address] Bobby David MD Hospital Follow-up 05/13/[address] [phone] Bobby David MD 05/09/[address] [phone] Bobby David MD Homecare Delivered (Adult size pull on med) 04/26/[address] [address] Manju Walton, PharmD 04/25/[address] [address] Bobby David MD Chronic low back pain with sciatica, sciatica laterality unspecified, unspecified back pain laterality 04/21/2024 Orders Only GENERIC EXTERNAL DATA DEPARTMENT Provider, Generic External Data 04/14/2024 Orders Only GENERIC EXTERNAL DATA DEPARTMENT Provider, Generic External Data 04/14/[address] [address] Bobby David MD Referral 04/14/[address] [address] Bobby David MD Durable Medical Equipment 04/12/[address] [address] Bobby David MD Chart Prep 04/11/[address] [address] Bobby David MD Hospital Follow-up 04/07/2024 Orders Only [facility] External Provider, [facility] 04/06/[address] [address] Bobby David MD Nurse Triage 04/04/2024 9:30 AM EST Office Visit [address] [address] Alexandra Hernandez NP Acute pain of right shoulder (Primary Dx); COPD exacerbation (CMS/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 pain syndrome 04/01/2024 Telephone [facility] MED[facility] [address] [place] [address] Skye Melton, HODA BPI Scoring / C/O scapular to right breast pain 04/01/2024 Telephone [facility]IC[facility] [address] [place] [address] Bobby David MD Nurse Triage 04/01/2024 Travel 04/01/2024 Telephone [facility] [place] [address] Skye Melton, HODA Recommend INSERT 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 Tele Tier 2 03/28/2024 Refill [facility] MEDICINE [address] [place] [address] Bobby David MD Chronic low back pain with sciatica, sciatica laterality unspecified, unspecified back pain laterality 03/15/2024 [place] [address] Bobby David MD 03/10/2024 Telephone [facility] [place] [address] Cem Berrios MA Dme- pant Liners 03/10/2024 Telephone C MEDICINE [address] [place] [address] Bobby David MD 03/09/2024 Refill [facility]IC[facility] [address] [place] [address] Bobby David MD Chronic obstructive pulmonary disease, unspecified (CMS/HCC) 03/09/2024 Telephone [facility] [place] [address] Bobby David MD Med Refill 03/04/2024 Telephone [facility] [place] [address] Cem Berrios [place] feb recall 03/02/2024 Telephone [facility] [address] [place] [address] Cady Myers RN 03/02/2024 Telephone [facility] [address] [place] [address] Amanda Castro, HODA from Last 3 Months Immunizations Name Administration [...] Description 05/31/2024 1:15 PM EST Office Visit [facility] [address] [facility] [place] [address] Name, [place] [address] 06/17/2024 10:00 AM EDT Telemedicine [facility] [place] [facility] [place] [address] Skye Melton, HODA Health Maintenance Due Date Last Done Comments [...] 06/12/2009 Pneumococcal Vaccine: 50+ Years Completed 11/07/2022, 11/07/2022, 05/23/2019, Additional history exists Zoster Vaccines Completed 01/07/2023, 11/07/2022 Influenza Vaccine Completed 12/12/2023, , 01/07/2023, Additional history exists COVID-19 Vaccine Completed 01/05/2024, [...] FUNCTION PANEL Routine 04/07/2024 2:12 PM EST HIGH SENSITIVITY TROPONIN I [...] AM EST Acute pain of right shoulder POCT GLYCATED HEMOGLOBIN, TOTAL Routine 02/04/2024 11:40 AM EST Type 2 diabetes with complication (CMS/HCC) ALBUMIN, RANDOM URINE W/CREATININE Routine 12/29/2023 11:20 AM EDT Type 2 diabetes with complication (CMS/HCC) Atherosclerosis of coronary artery of [place] heart, unspecified vessel or lesion type, unspecified whether angina present Pain of toe of left foot LIPID PANEL, STANDARD Routine 12/29/2023 11:17 AM EDT Type 2 diabetes with complication (CMS/HCC) Atherosclerosis of coronary artery of [place] heart, unspecified vessel or lesion type, unspecified [...] included. VBG pH 7.47(H) 7.32 - 7.43 [facility] Comment:METER #: [id number] additional_comment: Cb paradim VBG PCO2 42 mmHg [facility] Comment:METER #: [id number] additional_comment: Cb paradim VBG PO2 45 mmHg [facility] Comment:METER #: [id number] additional_comment: Cb paradim VBG Base Excess 7.4 mmol/L [facility] Comment:METER #: [id number] additional_comment: Cb paradim VBG HCO3 31(H) 22 - 26 mmol/L [facility] Comment:METER #: [id number] additional_comment: Cb paradim O2 Sat, Myanor 70.0 % [facility] Comment:METER #: [id number] additional_comment: Cb paradim 04/21/2024 12:5 8 PM EST 04/21/2024 1:02 PM EST us Generic External Data Provider LAB BLOOD ORDERAB LES Final Result [facility] [address] [place] [address] [phone] * XR Chest 1 View (04/21/2024 11:56 AM EST) Only the most recent of3 resultswithin the time period is included. Anatomical Region Laterality Modality Chest Radiographic Ludivina ging 04/21/2024 11:5 6 AM EST Narrative 04/21/2024 1:29 PM EST ? [facility] ?[address] ?[place] [address] ?XRay Report ? Signed ? Patient: Marita Zapata ?MR#: MM ?? [id number] ? : 1960 ?Acct:[id number] ? Age/Sex: 63 / F ?ADM Date: 04/21/24 ? Loc: HO.ED ? Attending Dr: ? Ordering Physician: Maritza Pineda ?? Date of Service: 04/21/24 ?? Procedure(s): XR chest 1V ?? Accession Number(s): [id number] ? cc: Maritza Pineda; Name,Bobby GRADY ? [...] DD/ 1156 ? TD/TT: 04/21/24 1311 ? Neon Sign Maker: ? Procedure Note Donotuseinterpreter, Image - 04/21/[address] [address] XRay Report Signed Patient: Marita Zapata MMR#: [id number] : 1960Acct:[id number] Age/Sex: 63 / FADM Date: 04/21/24 Loc: .ED Attending Dr: Ordering Physician: Maritza Pineda Date of Service: 04/21/24 Procedure(s): XR chest 1V Accession Number(s): [id number] cc: Maritza Pineda; Name,Bobby GRADY EXAMINATION: XR [...] by: Felton Ovalle MD 04/21/2024 01:26 PM [facility] Dictated By: Felton Ovalle MD Signed By: <Electronically signed by Felton Ovalle MD in OV> 04/21/24 1326 DD/ 1156 TD/TT: 04/21/24 1311 Neon Sign Maker: [facility] External Provider IMG XR PROCEDURES Final Result * High Sensitivity Troponin I (04/14/2024 6:34 PM EST) Only the most recent of2 resultswithin the time period is included. TROPONIN I HIGH SENSITIVITY 8.5 <3.5 - 17.0 ng/L [facility] Comment:The [place]man high sens itivity Troponin-I results should beused in conjunction with other diagnostic information suchas ECG, clinical observations and information, and patientsymptoms to aid in the diagnosis of [place]. 04/14/2024 6:34 PM EST 04/14/2024 6:44 PM EST us Generic External Data Provider LAB BLOOD ORDERAB LES Final Result [facility] [address] [place] [phone] * (ABNORMAL) SARS-CoV-2 RNA, Influenza A/B, and RSV RNA, Ql NAAT (04/14/2024 6:34 PM EST) Only the most recent of2 resultswithin the time period is included. Pathologist [facility] Influenza A PCR POSITIVE(A) Negative [facility] Influenza B PCR NEGATIVE Negative [facility] Resp Syncy Virus RNA Qual PCR POSITIVE(A) Negative [facility] SARS COV2 PCR NEGATIVE Negative [facility] Comment:All test results mus [...] use by authorized laboratories.Testing performed on the [employer] GeneXpert utilizingreal-time RT-PCR.All SARS CoV2 and positive influenza A/B results arereported to [facility]. 04/14/2024 6:34 PM EST 04/14/2024 6:44 PM EST us Generic External Data Provider LAB MICROBIOLOGY - GENERAL ORDERABLES Final Result [facility] [address] [place] [address] [phone] * (ABNORMAL) CBC auto differential (04/14/2024 6:34 PM EST) Only the most recent of2 resultswithin the time period is included. White Blood Count 20.6(H) 4.8 - 10.8 X10*3/uL [facility] Red Blood Count 6.18(H) 4.20 - 5.50 X10*6/uL [facility] Hemoglobin 17.6(H) 12.0 - 16.0 g/dl [facility] Hematocrit 53.7(H) 37.0 - 47.0 % [facility] Mean Corpuscular Volume 86.9 80.0 - 98.0 fL [facility] Mean Corpuscular Hemoglobin 28.5 27.0 - 33.0 pg [facility] Mean Corpuscular HGB Conc 32.8 31.0 - 35.0 g/dl [facility] Red Cell Distribution Width 14.7 11.0 - 16.0 % [facility] Platelet Count 317 160 - 400 X10*3/uL [facility] Mean Platelet Volume 10.6 9.4 - 12.3 fL [facility] Neutrophils Percent Auto 80.4(H) 45 - 73 % [facility] Imm Gran Pct Auto 0.6(H) 0.0 - 0.4 % [facility] Lymphocytes Percent Auto 14.2(L) 20 - 40 % [facility] Monocytes Percent Auto 4.6 2 - 11 % [facility] Eosinophils Percent Auto 0.0 0 - 4 % [facility] Basophils Percent Auto 0.2 0 - 2 % [facility] NRBC Pct Auto 0.0 0.0 - 0.2 /100WBC [facility] Neutrophils Absolute Auto 16.5(H) 2.0 - 8.3 x10*3/uL [facility] Imm Gran Abs Auto 0.13(H) 0.00 - 0.03 X10*3/uL [facility] Lymphocytes Absolute Auto 2.9 1.2 - 4.9 X10*3/uL [facility] Monocytes Absolute Auto 0.9 0.1 - 1.2 X10*3/uL [facility] Eosinophils Absolute Auto 0.0 0.0 - 0.4 X10*3/uL [facility] Basophils Absolute Auto 0.0 0.0 - 0.2 X10*3/uL [facility] NRBC Abs Auto 0.000 0.0 - 0.012 X10*3/uL [facility] 04/14/2024 6:34 PM EST 04/14/2024 6:44 PM EST Generic External Data Provider LAB BLOOD ORDERAB LES Final Result Performing Organization Address [facility] de Phone Number [facility] [address] [place] [phone] * B Type Natriuretic Peptide (BNP) (04/14/2024 6:34 PM EST) Only the most recent of2 resultswithin the time period is included. B Type Natriuretic Peptide 48 <100 pg/mL [facility] Comment:For those patients w ho are being treated with Natrecor(nesiritide, recombinant BNP), BNP testing should beperformed at least two hours post treatment in order toensure that only endogenous levels of BNP are detected. 04/14/2024 6:34 PM EST 04/14/2024 6:49 PM EST us Generic External Data Provider LAB BLOOD ORDERAB LES Final Result Performing Organization Address [facility] Co de Phone Number [facility] [address] [place] [phone] * (ABNORMAL) Magnesium (04/14/2024 6:34 PM EST) Only the most recent of2 resultswithin the time period is included. Magnesium 3.2(H) 1.6 - 2.6 mg/dL [facility] 04/14/2024 6:34 PM EST 04/14/2024 6:44 PM EST Generic External Data Provider LAB BLOOD ORDERAB LES Final Result Performing Organization Address [facility] Co de Phone Number [facility] [address] [place] [phone] * Lactic Acid (04/14/2024 6:34 PM EST) Lactic Acid 1.7 0.5 - 2.0 mmol/L [facility] 04/14/2024 6:34 PM EST 04/14/2024 6:44 PM EST Generic External Data Provider LAB BLOOD ORDERAB LES Final Result Performing Organization Address [facility] de Phone Number [facility] [address] [place] [phone] * (ABNORMAL) Basic Metabolic Panel (04/14/2024 6:34 PM EST) Only the most recent of2 resultswithin the time period is included. Sodium 147(H) 135 - 145 mmol/L [facility] Potassium 3.9 3.3 - 5.1 mmol/L [facility] Chloride 108 96 - 108 mmol/L [facility] Carbon Dioxide 28 22 - 29 mmol/L [facility] Anion Gap 15 12 - 20 [facility] Urea Nitrogen (BUN) 22(H) 9 - 16 mg/dL [facility] Creatinine, Serum 0.81 0.5 - 1.4 mg/dL [facility] Creatinine Clr Calc Pharmacy 72.0 [facility] Comment:Provided height and weight: 165.1 cm,77.111 kg.eGFR (calculated from the MDRD study equation) and eCrCl(calculated from the Cockcroft-Gault equation) are based ondifferent parameters and may not yield comparable results.If eCrCl result is absurd, please check patient'sheight/weight. Estimated Glomerular Filt Rate >60 [facility] Comment:Chronic Kidney Disea se: Estimated GFR < 60 mL/min/[id number] Kidney Disease: Estimated GFR < 15 mL/min/1.73m2 Glucose 144(H) 60 - 115 mg/dL [facility] Calcium 8.4 8.4 - 10.2 mg/dL [facility] 04/14/2024 6:34 PM EST 04/14/2024 6:44 PM EST Generic External Data Provider LAB BLOOD ORDERAB LES Final Result Performing Organization Address [facility] de Phone Number [facility] [address] [place] [phone] * Prothrombin Time-INR (04/07/2024 2:12 PM EST) Prothrombin Time 11.1 10.9 - 12.4 SEC [facility] INTERNATIONAL NORM RATIO 1.0 0.9 - 1.1 [facility] Comment:INTERNATIONAL NORMAL IZED RATIO (INR) [...] PM EST 04/07/2024 2:16 PM EST Narrative [facility] - 04/07/2024 2:30 PM EST SPECIMEN HEMOLYZED Generic External Data Provider LAB BLOOD ORDERAB LES Final Result Performing Organization Address [facility] Co de Phone Number [facility] [address] [place] [phone] * (ABNORMAL) C-reactive Protein (04/07/2024 2:12 PM EST) C Reactive Protein 0.85(H) < or = 0.50 mg/dL [facility] 04/07/2024 2:12 PM EST 04/07/2024 2:16 PM EST Narrative [facility] - 04/07/2024 2:41 PM EST SPECIMEN HEMOLYZED us Generic External Data Provider LAB BLOOD ORDERAB LES Final Result Performing Organization Address City/[facility]/ZIP Co de Phone Number [facility] [address] [place] [phone] * (ABNORMAL) Hepatic Function Panel (04/07/2024 2:12 PM EST) Bilirubin, Total 0.6 0.0 - 1.0 mg/dL [facility] Bilirubin, Direct 0.2 0.0 - 0.5 mg/dL [facility] Aspartate Amino Transferase 38(H) 5 - 31 U/L [facility] Alanine Aminotransferase 34(H) 0 - 31 U/L [facility] Total Protein 6.6 6.5 - 8.0 g/dL [facility] Albumin Level 3.7 3.5 - 5.0 g/dL [facility] Alkaline Phosphatase 67 39 - 117 U/L [facility] 04/07/2024 2:12 PM EST 04/07/2024 2:16 PM EST [facility] - 04/07/2024 2:41 PM EST SPECIMEN HEMOLYZED us Generic External Data Provider LAB BLOOD ORDERAB LES Final Result Performing Organization Address City/[facility]/ZIP Co de Phone Number [facility] [address] [place] [phone] * XR Chest 2 Views (04/04/2024 10:06 AM EST) Anatomical Region Laterality Modality Chest Radiographic Ludivina ging 04/04/2024 10:0 6 AM EST Narrative 04/04/2024 10:37 AM EST ?[facility] ?[address] ?[place], [place] [address] ?XRay Report ? Signed ? Patient: Marita Zapata ?MR#: MM ?? [id number] ? : 1960 ?Acct:[id number] ? Age/Sex: 63 / F ?ADM Date: 04/04/24 ? Loc: HO.HHCX ? Attending Dr: Alexandra Hernandez COMMUNITY AIDE ? Ordering Physician: Alexandra Hernandez NP ?? Date of Service: 04/04/24 ?? Procedure(s): XR chest 2V ?? Accession Number(s): [id number] ? cc: Alexandra Hernandez NP ? EXAMINATION: [...] DD/ 1006 ? TD/TT: 04/04/24 1015 ? Neon Sign Maker: MSM ? Procedure Note Elie Mercado - 04/04/2024 [facility] [address] [place] [address] XRay Report Signed Patient: Marita Zapata MMR#: [id number] : 1960Acct:[id number] Age/Sex: 63 / FADM Date: 04/04/24 Loc: HO.HHCX Attending Dr: Alexandra Hernandez COMMUNITY AIDE Ordering Physician: Alexandra Hernandez NP Date of Service: 04/04/24 Procedure(s): XR chest 2V Accession Number(s): [id number] cc: Alexandra Hernandez COMMUNITY AIDE EXAMINATION: XR CHEST CLINICAL INFORMATION: right sided [...] 04/04/24 1034 DD/ 1006 TD/TT: 04/04/24 1015 Neon Sign Maker: ABEBA Alexandra Hernandez COMMUNITY AIDE IMG XR PROCEDURES Edited Result - Final * (ABNORMAL) POCT HGB A1C (02/04/2024 11:40 AM EST) Hemoglobin A1C 8.2(A) 4.0 - 6.0 % QC Media Lot # [id number] Lot# Expiration Date 7,514 Blood 02/04/2024 11:4 0 AM EST Bobby David MD POINT OF CARE TEST ENTER/EDIT OR DERABLES Final Result * (ABNORMAL) Albumin, Random Urine W/Creatinine (12/29/2023 11:20 AM EDT) Creatinine, Urine 157.96 mg/dL [facility] Microalbumin Urine 47.0 mg/L H [facility] Microalbum Creatinine Ratio Ur 29.7(H) <30 ug/mg cr [facility] Comment:Albumin/Creatinine R atio Reference Ranges: Normal: < 30 ug/mg creatinine Microalbuminuria: 30 - 300 ug/mg creatinineClinical Albuminuria: > 300 ug/mg creatinine Urine (Urine, Random) 12/29/2023 11:20 AM EDT 12/29/2023 1:01 PM EDT us Bobby David MD LAB URINE ORDERABLES Final Resul t Performing Organization Address [facility] de Phone Number [facility] [address] [place] [phone] * (ABNORMAL) Lipid Panel, Standard (12/29/2023 11:17 AM EDT) Triglycerides 172(H) <150 mg/dL [facility] Comment:Desirable Triglyceri de: less than 150 mg/dLBorderline High Triglyceride 150-199 mg/dLHigh Triglyceride: 200-499 mg/dLVery High Triglyceride: greater than or equal to 5OO mg/dL Cholesterol 140 <200 mg/dL [facility] Comment:Desirable Cholestero l: less than 200 mg/dLBorderline High Cholesterol: 200-239 mg/dLHigh Cholesterol: greater than 239 mg/dL LDL Cholesterol Calculated 61 <100 mg/dL [facility] Comment:Desirable LDL: less than 100 mg/dLNear Optimal/Above Optimal LDL: 110- 129 mg/dLBorderline High LDL: 130-159 mg/dLHigh LDL: 160-189 mg/dLVery High LDL: greater than or equal to 190 mg/dL HDL Cholesterol 45 >40 mg/dL [facility] Comment:Desirable HDL: great er than 40 mg/dL Note: This HDL assay may give artificially low results in patients with liver disease. Blood Venous blood specimen / Unknown 12/29/2023 11:17 AM EDT 12/29/2023 1:03 PM EDT us Bobby David MD LAB BLOOD ORDERABLES Final Resul t Performing Organization Address [facility] Co de Phone Number [facility] [address] [place] [address] [phone] * (ABNORMAL) Hm Colonoscopy (07/16/2022) Colonoscopy [...] Legacy Procedure: Mammography Report 1 Bobby Name MD MUELLER BI PROCEDURES Final Result * Hm Pap Smear (02/27/2021 10:30 AM EST) HM Pap smear Perfomed Historical Provider HEALTH MAINTENANCE Final Result * THINPREP TIS PAP AND HPV mRNA E6/E7 REFLEX HPV 16,18/45 (02/27/2021 10:24 AM EST) Clinical Information: Postmenopausal [facility] COMMENT SEE COMMENT [facility] ON [...] has been evaluated with computer assisted technology. [facility] Manager Hris: SEE COMMENT [facility] Comment: CULP, CT(ASCP) CT screening location: [address] ??[address] HPV nRNA E6/E7 Not Detected Not Detected [facility] Comment: Methodology: Gauge Maker-Mediated Amplification This assay detects E6/E7 viral messenger RNA (mRNA) from 14 high-risk HPV types (16,18,31,33,35,39,45,51,52,56,58,59,66,68). ? The analytical performance characteristics of this assay have been determined by [employer]. The modifications have not been cleared or approved by the FDA. This assay has been validated pursuant to the CLIA regulations and is used for clinical purposes. ?? For additional information, please refer to http://education.Porch/faq/DWE730r6 (This link if provided for information/ educational purposes only.) Interpretation/Re sult: Negative for intraepithelial lesion or malignancy. [facility] LMP: NONE GIVEN [facility] Prev. BX: HX ABNL [facility] Prev. PAP: 02/2018 [facility] SOURCE: None given [facility] Statement Of Adequacy: SEE COMMENT [facility] Comment: Satisfactory for evaluation. Endocervical/transformation zone component present. 02/27/2021 10:2 4 AM EST Monisha MAZARIEGOS LAB PATHOLOGY ORDERABLES Final Result Performing Organization Address City/State/[facility] Co de Phone Number [facility] [address] from Last 3 Months or Most Recently Relevant to Health Maintenance Insurance [facility] Care Teams Security Vehicle Patrol Officer Relationship Specialty Start Date End Date Name, MD Bobby [address] [place] [phone] PCP - General Family Medicine 06/01/15
--- OUTSIDE RECORDS SUMMARY | 2024-05-31 12:41 | XMS_ITS | Continuity of Care Document ---
Author Organization [facility] [address] Care Team Providers Care Cutting And Creasing Press Operator Name Role Phone [facility] OTHER NAME, MOHINI Primary Care Provider Assessment Encounter Date Assessment Date Assessment LastModified by Organization Details LastModified Time 05/05/2024 05/05/2024 Labs 04/27:Na 129-K 4.0-Bun 38-Cr 0.7-wbc 15.9-hgb 15.2- hct 45-plt 240 [id number] Not available 05/05/2024 12:09:46 Plan of Treatment Reminders Order Date Submit [...] exacerbatio n of chronic obstructive pulmonary disease 754584862 Active 2024 Not Available [facility] 13:13:30 Pneumonia caused by Influenza A virus 336381526 Active 2024 Not Available [facility] 12:06:26 Pneumonia caused by respiratory syncytial virus 613992026 Active 2024 Not Available [facility] 12:06:27 Type 2 diabetes mellitus 22348333 Active 2024 Not Available [facility] 12:09:46 Essential hypertensio n 69053559 Active 2024 Not Available [facility] 5 12:10:17 Hypothyroid ism 25364896 Active 2024 Not Available [facility] 5 12:10:48 Gastroesoph ageal reflux disease without esophagitis 004370514 Active 2024 Not Available [facility] 5 12:11:49 Primary gout 50714055 Active 2024 Not Available [facility] 5 12:11:50 Muscle weakness 14164475 Active 2024 Not Available [facility] 5 09:55:06 Unsteady when standing 293684376 Active 2024 Not Available [facility] 5 09:56:09 Difficulty walking 094025586 Active 2024 Not Available [facility] 5 09:56:40 Chronic obstructive pulmonary disease 81047915 Active [address] [place] [address], [address], [place], [address] , [employer] [facility] 5 14:52:55 Leukocytosi s 831273583 Active 2024 from steriod use MIGUE BRISENO, [facility] [address] [facility], [address], [place], [address] , [facility] 5 14:54:46 Coronary arterioscle rosis 76208711 Active 2024 MIGUE BRISENO [address], [address], [place], [address] , [facility] 5 15:05:30 Gout 27875171 Active 2024 MIGUE BRISENO [address], [address], [place], [address] , [facility] 5 15:09:53 Allergic rhinitis 17715627 Active 2024 NOVA KWOKP [address] [facility], [address], [place], [address] , [place] [facility] [employer] 5 15:17:53 Smoker 41294131 Active 2024 GEETA KWOK [address] [facility], [address], [place], [address] , [facility] 5 15:27:03 Uncomplicat ed asthma 931572347 Active 2024 Not Available [facility] 5 14:07:57 Old myocardial infarction 2413193 Active 2024 Not Available [facility] 5 14:08:17 Obstructive sleep apnea syndrome 17858520 Active 2024 Not Available [facility] 5 14:09:00 Disorder of nervous system due to type 2 diabetes mellitus 148092368 Active 2024 Not Available [facility] 5 14:09:32 Problem Notes None recorded. Medical Equipment None Reported. Allergies Allergen ID Allergen Name Allergen Category Reaction Reaction Severity Criticality Documentation Date Start Date Code Code System Note Provider Name and Address Organization Details Recorded Time 59756 Product containin g angiotens in-conver ting enzyme inhibitor (product) medicatio n angioedem a severe Not available 04/28/20242024 14152 009 SNOMED Not Available Not Available Not Available 54753 enalapril Not available Not available Not available high 04/28/20242017 3827 RxNorm Other react ion(s ): Anaph ylaxi s Not Available Not Available Not Available 35514 metformin medicatio n Not available Not available Not available 04/28/20242024 6809 RxNorm Not Available Not Available Not Available 44095 hydromorp cb medicatio n Not available Not available high 04/28/20242022 3423 RxNorm Other react ion(s ): TINGL ING, PT DOES NOT LIKE THE FEELI NG MED GIVES HER Not Available Not Available Not Available 56301 azithromy josephine medicatio n Not available Not available Not available 05/03/2024 67006 RxNorm Not Available Not Available Not Available 23826 erythromy josephine medicatio n anaphylax is Not available high 05/03/20242010 4053 RxNorm Other react ion(s ): Hives /Urti caria , pustu les over entir e body, Unkno wn Other React ion(s ): Unkno wn Not Available Not Available Not Available 04028 lisinopri l medicatio n Not available Not available Not available 05/03/2024 45207 RxNorm Not Available Not Available Not Available 51911 metoprolo l Not available Not available Not [...] Not Available Not Available No t Available Motor2 Ultra Test strips USE DIRECTED TO TEST [...] Avai lable Vitals Date Recorded Body height Heart rate Respiratory rate Body temperature Oxygen saturation Oxygen saturation in Arterial blood by Pulse oximetry Systolic blood pressure Diastolic blood pressure Provider Name and Address Organization Details Last Updated DateTime 165.1 cm 86 /min 18 /min 97.5 [degF] 96 % 96 % 129 mm[Hg] 78 mm[Hg] JOHAN VU NP [address] [facility], [address], [place], [address], [employer] 12:09:17 Social History Question Answer Notes LastModified by Organization Details LastModified Time Tobacco Smoking Status Former Smoker quit 2017, then started again, now none x 2 months. Chiquita Guardado MD [address] [facility], [address], [place], [address], [employer] 05/03/2024 22:40:28 Do You Have An Advance Directive? Yes Information not available 05/01/2024 What Is Your Level Of Alcohol Consumption? None Information not available 05/01/2024 What Is Your Code Status? Full Code Information not available 05/01/2024 Where Do You Live? [facility] With Information not available 05/03/2024 Legal Guardian? No Informati on not available 05/03/2024 Do You Have A Medical Power Of Dry Cell Tester? Yes Information not available 05/03/2024 What Was [...] Recorded Time Tdap 0 completed Samuel Chappell [facility] 04/29/2024 12:14:00 Tdap 3 completed Samuel Chappell [facility] 04/29/2024 12:14:06 Pneumococcal conjugate PCV 13 3 completed Samuel Chappell [facility] 04/29/2024 12:14:27 pneumococcal polysaccharide PPV23 0 completed Samuel Chappell [facility] 04/29/2024 12:14:43 influenza, unspecified formulation 1 completed Samuel Chappell [facility] 04/29/2024 12:15:03 influenza, unspecified formulation 2 completed Samuel Chappell [facility] 04/29/2024 12:15:20 influenza, unspecified formulation 3 completed Samuel Chappell [facility] 04/29/2024 12:15:25 influenza, unspecified formulation 4 completed Samuel Chappell [facility] 04/29/2024 12:15:30 SARS-COV-2 (COVID-19) vaccine, UNSPECIFIED 1 completed Samuel Wang-Malik [facility] 04/29/2024 12:16:07 SARS-COV-2 (COVID-19) vaccine, UNSPECIFIED 1 completed Samuel Wang-Malik [facility] 04/29/2024 12:16:12 SARS-COV-2 (COVID-19) vaccine, UNSPECIFIED 1 completed Samuel Floyds-Malik [facility] 04/29/2024 12:16:16 SARS-COV-2 (COVID-19) vaccine, UNSPECIFIED 2 completed Samuel Felipe-Malik [facility] 04/29/2024 12:16:21 SARS-COV-2 (COVID-19) vaccine, UNSPECIFIED 2 completed [facility] Felipe-Malik [facility] 04/29/2024 12:16:27 SARS-COV-2 (COVID-19) vaccine, UNSPECIFIED 3 completed Samuel Everetts-Malik [facility] 04/29/2024 12:16:41 SARS-COV-2 (COVID-19) vaccine, UNSPECIFIED 4 completed Samuel Everetts-Malik [facility] 04/29/2024 12:16:51 zoster, unspecified formulation 3 completed Samuel Everetts-Malik [facility] 04/29/2024 12:17:13 zoster, unspecified formulation 3 completed [facility] Everetts-Malik [facility] 04/29/2024 12:17:19 Past Encounters Encounter ID Performer Location Encounter Start Date Encounter Closed Date Diagnosis/Indication Diagnosis SNOMED-CT Code Diagnosis ICD10 Code Diagnosis Note [id number] [place] [address] 04/29/2024 10:45:26 05/03/2024 09:36:15 Chronic obstructive pulmonary disease 89806387 J44.9 2/2 RSV/Influe nzaon presentati on O2 sats as low as 83 % and tachypneic 26tx inpatient with IV steroids, neb tx and abxcont doxycyclin e BID for 2 more dayscont on neb tx prn, albuterol inhaler prncont trelegy, respimat, dupixent. roflumilas tnow on prednisone taper , resume 2.5 mg when tapercompl etedmonito r resp status. Type 2 asa betes mellitus 51881353 E11.9 hx of neuropathy On trulicity, Insulin SSC, lyrica, jardiancec ont lantus at hsrobaxin prn for neuropathy painmonito r BGL TID Hypothyroidism 14878698 E03.9 continue on levothyrox inemonitor tsh prn Coronary arteriosclerosis 14898908 I25.10 HX of HLD, HTNon statincont on asamonitor for cardiac sx Essential hypertension 58859481 I10 cont on coreg dailymonit or BP Gout 27246001 M10.9 cont allopurino l dailyfollo w uric acid level prn Smoker 80114311 F17.200 reports that she has not smoked in 1 monthnow on nicotine patch 21 mgprovide support for cessation Hyperlipidemia 37987937 E78.5 cont atorvastat inmonitor labs prn Gastroesop hageal reflux disease without esophagitis 737620572 K21.9 cont omeprazole dailymonit or GI sx Allergic rhinitis 203237 04 J30.9 cont on fluticason e, montelukas t, cetirizine Leukocytosis 001783559 D 72.829 chronic from chronic steriod usefollow labs Low back pain 997858028 M54.50 cont lido patch qdpercocet prnon robaxin for neuropathy as well [id number] MD [facility] [address] [place] [address] 05/03/2024 17:29:21 05/16/2024 12:42:00 Chronic obstructive pulmonary disease 18383834 J43.8 S/P several recent exacerbati ons, now [...] as planned. Type 2 asa betes mellitus 89389825 E11.42 Some high sugars since here, likely due to prednisone , expect improvemen t as taper continues. Continue Lantus 35U BID, Trulicity 1.5 mg weekly, Jardiance 10 mg qd, and SSI.Contin ue Lyrica 100 mg TID and methocarbo mol 750 mg q 8 hrs prn for neuropathy pain.Monit or fingerstic ks TID and HgA1C as outpt. Hypothyroidism 48748418 E03.8 Continue on levothyrox ine 112 mcg qdMonitor TSH as outpt. Coronary arteriosclerosis 36778109 I25.10 No recent sxs.Contin ue atorvastat in 80 mg qd, carvedilol 6.25 mg BID (hold for SBP<90), and ASA 81 mg qd.Monitor for sxs.F/U with cardio as planned. Essential hypertension 10640091 I10 Good control on meds as above.Chantel tor BP and labs. Gout 74737770 M10.09 No current sxs.Contin ue allopurino l 100 mg qdMonitor for flare. Smoker 90154021 F17.200 No longer smoking since recent hospitaliz ations.Con tinue nicotine patch 21 mg qd, taper as outpt.Cont inue to encourage abstinence . Hyperlipidemia 02972437 E78.49 Continue atorvastat in 80 mg qdMonitor labs as outpt. Gastroesop hageal reflux disease without esophagitis 438583869 K21.9 No current sxs.Contin ue omeprazole qdMonitor GI sxs Allergic rhinitis 691426 04 J30.89 Continue fluticason e nasal spray, montelukas t, and cetirizine Monitor sxs. Leukocytosis 586896832 D 72.828 Thought to be due to prednisone .Monitor Low back pain 681669203 M54.59 Under fair control.Co ntinue robaxin and Lyrica as above and lidocaine patch qd, and Percocet 7.5/325 mg q 6 hrs prn.PT/OT as above. Intertrigo 50476156 L30. 4 Continue diflucan 150 mg qod x 3 doses and will start nystatin cream BID.Monito r for healing. Asthenia 81669110 R53.1 Very deconditio bernice.Needs PT/OT for strengthen ing, balance, gait training, safety and function.C ontinue fall precaution s.Monitor for safety. [id number] [place] [address] 05/04/2024 11:59:27 05/16/2024 14:09:43 Viral pharyngitis 5049896 B34.9 throat and tonsil noted with erythema and slight swelling, not exudateswi ll add lozenges take 1 prn Q2 and warm water and salt rinses for comfort qid prn Intertrigo 79453021 L30. 4 acute onset over 1-2 dayserythe matous and scattered dry patchy rash noted covering vast majority of left and right buttockscu rrently rx diflucan qod for 3 dosesdue to pruritis will add clotrimazo le/beta BID for 10 daydiscuss ed with nursing will re eval in 2 days [id number] MANDO DAVID [address] [place] [address] 05/05/2024 12:08:09 05/10/2024 11:42:42 Chronic obstructive pulmonary disease 41445491 J44.9 2/2 RSV/Influe nzaDoing [facility] ed off F4Gfxtczid off prednisone .Doxy completed. Continue nebs and inhalers.C ombivent dose currently 2 inh bid, not typical but will not change as med managed by Pulmonolog ist.Monito r Type 2 asa betes mellitus 01056925 E11.9 BS borderline low in am and at lunchStill on prednisone taper.Disc ussed with pt.Plan -Continue trulicity and jardiance and SSIReduce lantus to 25 units q HS, continue 35 units in amAdd large portions to diet, refer to retirement benefits specialist per pt. request, and assure HS snack (manuela crackers and PB on dinner tray)Monit or closely and adjust meds as needed. Hypothyroidism 66715308 E03.9 continue on levothyrox inemonitor tsh prn Coronary arteriosclerosis 14608433 I25.10 HX of HLD, HTNon statin, coreg, ASAmonitor for cardiac sx Essential hypertension 27017557 I10 cont on coreg dailymonit or BP Gout 33175346 M10.9 cont allopurino l dailyfollo w uric acid level prn Smoker 83476629 F17.200 reports that she has not smoked in 1 monthnow on nicotine patch 21 mgprovide support for cessation Hyperlipidemia 34989634 E78.5 cont atorvastat inmonitor labs prn Gastroesop hageal reflux disease without esophagitis 207454089 K21.9 cont omeprazole daily - came in on this doseUnsure of baseline, but will continue this dose for now, mahesh. with higher doses of prednisone .Consider dose taper when more stable and if stays LTC.monito r GI sx Allergic rhinitis 990550 04 J30.9 cont on fluticason e, montelukas t, cetirizine Leukocytosis 523861368 D 72.829 chronic from chronic steriod use - improving. 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 Health Concerns Section Related Observation LastModified by Organization Detai ls LastModified Time None Recorded Concern Status LastModified by Organization Details LastModified Time None Recorded Payers Encounter Date Sequence Insurance Name Policy Number Policy Mendez Covered Member ID Mendez Member ID Guarantor Name 05/05/2024 1 [facility] - DOS ON OR AFTER 2022 - MEDICARE ADVANTAGE [place] (MEDICARE REPLACEMENT/ADV ANTAGE - PPO) Marita Lawrence [id number] Marita Lawrence Notes Date Note Type Note Provider Name and Address Organization Details Recorded Time 05/05/2024 text/html Marita is seen tohector lopez for an acute visit. She a 63 [...] snack. She is requesting to see the retirement benefits specialist.She then shows me the rash on her [...] [address] [facility], [address], [place], [address], [facility] 05/05/2024 12:42:06 OBGyn Episode No OBEpisode recorded.
--- OUTSIDE RECORDS SUMMARY | 2024-05-31 12:41 | XMS_ITS | Encounter Summary ---
Author Organization [employer] Address [address] [place] [address] Care Team Providers Care Measurer Machine Name Role Phone Name, Bobby GRADY Primary Care Provider [phone] Reason for Visit * Reason Onset Date Comments FYI 05/18/2024 Encounter Details Date Type Department Care Team ([facility] st Contact Info) Description 05/18/2024 Telephone [facility] [address] [place] [address] Name, MD Bobby [address] [place] [address] FYI Social History Tobacco Use Types Packs/Day Years [...] t he electric, gas, oil or water [employer] threatened to shut off services in your [...] Telephone Encounter - Patricia Campos RN - 05/19/2024 10:29 AM EST TC placed to [facility] with [facility]. Was advised by individual to callmain line to speak with Dick. Individual could not provide a number to reach main line. TC placed to main line. Individual states Dick is the name of the company. RN was put on hold and was transferred. No answer upon transfer, LVM to call office back and ask to speak to [place] team nurses. * Telephone Encounter - Maria Eugenia Vickers - 05/18/2024 2:23 PM EST Tc from Srikanth with judith requesting a callback to discuss some informatio on behalf pt, Dick also inform pt will be getting longterm 3x a week and will also receive physical therapy. Dick ([facility]) [phone] documented in this encounter Plan of Treatment Upcoming Encounters Date Type Department Care Team (Late st Contact Info) Description 05/31/2024 1:15 PM EST Office Visit [address] [address] Name, MD Bobby [address] [place] [address] 06/17/2024 10:00 AM EDT Telemedicine [address] [address] Skye Melton, RN documented as of this encounter Goals Goal Patient Goal Type Associated Problems Recent Progress Patient-Stated? Author Smoking cessation General No Inga Magaña, MiltonD documented as of this encounter Visit Diagnoses Not on filedocumented in this encounter Additional Health Concerns Assessment Noted Time PHQ-9 Depression Total Score: 0 06/19/19 24 10:09 AM EDT documented as of this encounter Care Teams Measurer Machine Relationship Specialty Start Date End Date Name, MD Bobby [address] [place] [id number] PCP - General Family Medicine 06/01/15 documented as of this encounter
--- OUTSIDE RECORDS SUMMARY | 2024-05-31 12:41 | XMS_ITS | Encounter Summary ---
Author Organization [employer] Address [address] [facility] [address] [place] [address] Care Team Providers Care Fur Sorter Name Role Phone Name, Bobby GRADY Primary Care Provider [phone] Reason for Visit * Reason Onset Date Comments Homecare Delivered 05/09/2024 Adult size pu ll on med Encounter Details Date Type Department Care Team ([facility] st Contact Info) Description 05/09/2024 Telephone [facility] [address] [place] [address] Name, MD Bobby [address] [place] [address] Homecare Delivered (Adult size pull on med) Social History Tobacco Use Types Packs/Day Years [...] the past 12 months, has t he GOOD, gas, oil or water [employer] threatened to shut off services in your [...] encounter Miscellaneous Notes * Telephone Encounter - Trice Bender MA - 05/10/2024 11:57 AM EST Medical necessity form has been signed by the PCP, and faxed to [facility]. Form has been sent in for scanning. * Telephone Encounter - Trice Bender MA - 05/09/2024 10:52 AM EST Received medical necessity form from [facility] for Adult size pull on med. Form has been filled out and placed on PCP's desk for signature. documented in this encounter Plan of Treatment Upcoming Encounters Date Type Department Care Team (Late st Contact Info) Description 05/31/2024 1:15 PM EST Office Visit [facility] [address] [place] [phone] Name, MD Bobby [address] [place], [place] [phone] 06/17/2024 10:00 AM EDT Telemedicine [facility] [address] [place] [address] Skye Melton, HODA documented as of this encounter Goals Goal Patient Goal Type Associated Problems Recent Progress Patient-Stated? Author Smoking cessation General No Inga Magaña, PharmD documented as of this encounter Visit Diagnoses Not on filedocumented in this encounter Additional Health Concerns Assessment Noted Time PHQ-9 Depression Total Score: 0 06/19/19 24 10:09 AM EDT documented as of this encounter Care Teams Fur Sorter Relationship Specialty Start Date End Date Name, MD Bobby [address] [place] [address] PCP - General Family Medicine 06/01/15 documented as of this encounter
--- OUTSIDE RECORDS SUMMARY | 2024-05-31 12:41 | XMS_ITS | Encounter Summary ---
Author Organization [employer] Address [address] [place] [address] 7 [place] [address] Care Team Providers Care Farm Equipment Service Technician Name Role Phone Name, Bobby GRADY Primary Care Provider [phone] Inga Magaña PharmD Unavailable [phone] Reason for Visit * Reason Onset Date Comments Prior Authorization 01/21/2023 [employer] KWIK PEN 100 UNIT/ML injection Encounter Details Date Type Department Care Team ([facility] st Contact Info) Description 01/21/2023 Telephone [facility] [address] [place], [place] [phone] Name, MD Bobby [address] [place] [address] Prior Authorization (H[employer] KWIKPEN 100 UNIT/ML injection) [...] Description 05/31/2024 1:15 PM EST Office Visit [facility] [address] [place] [phone] Name, MD Bobby [address] [place] [phone] 06/17/2024 10:00 AM EDT Telemedicine [facility] [address] [place] [phone] Skye Melton, RN documented as of this encounter Goals Goal Patient Goal Type Associated Problems Recent Progress Patient-Stated? Author Smoking cessation General No Inga Magaña, PharmD documented as of this encounter Visit Diagnoses Not on filedocumented in this encounter Additional Health Concerns Assessment Noted Time PHQ-9 Depression Total Score: 0 03/11/20 22 11:47 AM EST documented as of this encounter Care Teams Farm Equipment Service Technician Relationship Specialty Start Date End Date Name, MD Bobby [address] [place] [address] PCP - General Family Medicine 06/01/15 Inga Magaña PharmD [address] [place] [address] Pharmacist Internal Medicine 01/07/23 09/29/23 documented as of this encounter
--- OUTSIDE RECORDS SUMMARY | 2024-05-31 12:42 | XMS_ITS | Encounter Summary ---
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 Name Role Phone Name, Bobby GRADY Primary Care Provider [phone] Encounter Details Date Type Department Care Team (Latest Contact Info) Description 04/29/2024 Lab Requisition [facility] - Main Lab [address] [place] [address] Yared Weaver MD [address] [place] [address], [phone] Atherosclerotic heart disease of [place] coronary artery without angina pectoris Social History [...] Associated Diagnosis Comments COMPLETE BLOOD COUNT Routine 04/29/2024 5:10 AM EST Atherosclerotic heart disease of [place] coronary artery without angina pectoris BASIC METABOLIC PANEL Routine 04/29/2024 5:10 AM EST Atherosclerotic heart disease of [place] coronary artery without angina pectoris documented in this encounter Results * (ABNORMAL) Basic metabolic panel (04/29/2024 5:10 AM EST) Sodium 143 133 - 145 mmol/L LAB CHEMISTRY METHOD 04/29/2024 11:20 AM EST [facility] Potassium 4.5 3.5 - 5.5 mmol/L LAB CHEMISTRY METHOD 04/29/2024 11:20 AM [facility] Chloride 106 96 - 110 mmol/L LAB CHEMISTRY METHOD 04/29/2024 11:20 AM [facility] CO2 31 21 - 32 mmol/L LAB CHEMISTRY METHOD 04/29/2024 11:20 AM [facility] Anion Gap 6 3 - 11 LAB CHEMISTRY METHOD 04/29/2024 11:20 AM [facility] Glucose 97 70 - 100 mg/dL LAB CHEMISTRY METHOD 04/29/2024 11:20 AM [facility] BUN 34(H) 5 - 25 mg/dL LAB CHEMISTRY METHOD 04/29/2024 11:20 AM [facility] Creatinine 0.80 0.50 - 1.10 mg/dL LAB CHEMISTRY METHOD 04/29/2024 11:20 AM [facility] eGFR 82 >=60 mL/min/1. 73m2 LAB CHEMISTRY METHOD 04/29/2024 11:20 AM [facility] Comment:Calculation based on the??Chronic Kidney Disease Epidemiology Collaboration (CKD-EPI) equation refit??without adjustment for race. BUN/Creatinine Ratio 42.5 LAB CHEMISTRY METHOD 04/29/2024 11:20 AM [facility] Calcium 7.9(L) 8.5 - 10.5 mg/dL LAB CHEMISTRY METHOD 04/29/2024 11:20 AM [facility] Blood Venous blood specimen / Unknown Venipuncture / Unknown 04/29/2024 5:10 AM EST 04/29/2024 9:30 AM EST us Yared Weaver MD LAB BLOOD ORDERABLES Final Resul t [facility] [address] [place] [address], * (ABNORMAL) Complete blood count (04/29/2024 5:10 AM EST) [facility] Signature WBC 18.2(H) 4.8 - 10.8 K/mcL LAB HEMETOLOGY METHOD 04/29/2024 10:30 AM [facility] RBC 5.30(H) 3.80 - 4.80 M/mcL LAB HEMETOLOGY METHOD 04/29/2024 10:30 AM [facility] Hemoglobin 15.0 11.5 - 16.0 g/dL LAB HEMETOLOGY METHOD 04/29/2024 10:30 AM [facility] Hematocrit 48.0(H) 35.0 - 47.0 % LAB HEMETOLOGY METHOD 04/29/2024 10:30 AM [facility] MCV 90.2 79.0 - 98.0 FL LAB HEMETOLOGY METHOD 04/29/2024 10:30 AM [facility] MCH 28.2 27.0 - 32.0 pcg LAB HEMETOLOGY METHOD 04/29/2024 10:30 AM [facility] MCHC 31.3(L) 32.0 - 37.0 g/dL LAB HEMETOLOGY METHOD 04/29/2024 10:30 AM [facility] RDW 14.7 11.0 - 15.0 % LAB HEMETOLOGY METHOD 04/29/2024 10:30 AM [facility] Platelets 238 130 - 400 K/mcL LAB HEMETOLOGY METHOD 04/29/2024 10:30 AM [facility] MPV 11.8(H) 7.0 - 11.0 FL LAB HEMETOLOGY METHOD 04/29/2024 10:30 AM [facility] NRBC 0.0 <1.0 % LAB HEMETOLOGY METHOD 04/29/2024 10:30 AM [facility] NRBC Absolute 0.00 <0.10 K/mcL LAB HEMETOLOGY METHOD 04/29/2024 10:30 AM EST [facility] Blood Venous blood specimen / Unknown Venipuncture / Unknown 04/29/2024 5:10 AM EST 04/29/2024 9:30 AM EST us Yared Weaver MD LAB BLOOD ORDERABLES Final Resul t [facility] [address] [place] [address], documented in this encounter Visit Diagnoses Diagnosis Atherosclerotic heart disease of [place] coronary artery without angina pectoris documented in this encounter Care Teams Dry House Tender Relationship Specialty Start Date End Date Name, MD Bobby [address] [place], [place] PCP - General Internal Medicine 04/01/18 documented as of this encounter
--- OUTSIDE RECORDS SUMMARY | 2024-05-31 12:42 | XMS_ITS | Data Portability ---
Author Organization [facility], Main Office Address [address] [place] [address] [address] [place] [address] Care Team Providers Care Plier Worker Name Role Phone [facility] OTHER NAME, MOHINI Primary Care Provider Assessment Encounter Date Assessment Date Assessment LastModified by Organization Details LastModified Time 05/03/2024 05/03/2024 Labs 04/27:Na 129-K 4.0-Bun 38-Cr 0.7-wbc 15.9-hgb 15.2- hct 45-plt 240 [email or web address] Not available 05/03/2024 18:08:16 05/05/2024 05/05/2024 Labs 04/27:Na 129-K 4.0-Bun 38-Cr 0.7-wbc 15.9-hgb 15.2- hct 45-plt 240 [email or web address] Not available 05/05/2024 12:09:46 05/11/2024 05/11/2024 Labs 05/05: Na 144-K 3.9-Bun 19- Cr 0.7-wbc 13.8-hgb 15-hct 47.2 Labs 04/27:Na 129-K 4.0-Bun 38-Cr 0.7-wbc 15.9-hgb 15.2- hct 45-plt 240 Not available 05/11/2024 16:44:46 05/12/2024 05/12/2024 45 minutes spent on coordination of discharge. Not available 05/12/2024 11:03:36 Plan of Treatment Reminders Order Date Submit [...] exacerbatio n of chronic obstructive pulmonary disease 153345455 Active 2024 Not Available [facility] 5 13:13:30 Pneumonia caused by Influenza A virus 519127950 Active 2024 Not Available [facility] 5 12:06:26 Pneumonia caused by respiratory syncytial virus 477429453 Active 2024 Not Available [facility] 5 12:06:27 Type 2 diabetes mellitus 69589712 Active 2024 Not Available [facility] 5 12:09:46 Essential hypertensio n 10206073 Active 2024 Not Available [facility] 5 12:10:17 Hypothyroid ism 49336651 Active 2024 Not Available [facility] 5 12:10:48 Gastroesoph ageal reflux disease without esophagitis 107409253 Active 2024 Not Available [facility] 12:11:49 Primary gout 43504039 Active 2024 Not Available [facility] 5 12:11:50 Muscle weakness 68857778 Active 2024 Not Available [facility] 5 09:55:06 Unsteady when standing 499364237 Active 2024 Not Available [facility] 5 09:56:09 Difficulty walking 876233663 Active 2024 Not Available [facility] 5 09:56:40 Chronic obstructive pulmonary disease 92316513 Active 2024 GEETA KWOK [address], [address], [place], [address] , [facility] 5 14:52:55 Leukocytosi s 142078885 Active 2024 from steriod use MIGUE BROOKSRD, [facility] [address], [address], [place], [address] , [facility] 5 14:54:46 Coronary arterioscle rosis 36179396 Active 2024 MIGUEANNETTE BRISENO, [facility] [address], [address], [place], [address] , [facility] 5 15:05:30 Gout 91975465 Active 2024 MIGUEANNETTE BRISENO, [address], [address], [place], [address] , [facility] 5 15:09:53 Allergic rhinitis 76936839 Active 2024 MIGUE BRISENO, [facility] [address], [address], [place], [address] , [facility] 5 15:17:53 Smoker 63873147 Active 2024 MIGUE BRISENO, [facility] [address], [address], [place], [address] , [facility] 5 15:27:03 Uncomplicat ed asthma 980972895 Active 2024 Not Available [facility] 5 14:07:57 Old myocardial infarction 3045623 Active 2024 Not Available [facility] 5 14:08:17 Obstructive sleep apnea syndrome 88565771 Active 2024 Not Available [facility] 5 14:09:00 Disorder of nervous system due to type 2 diabetes mellitus 635227033 Active 2024 Not Available [facility] 5 14:09:32 Problem Notes None recorded. Medical Equipment None Reported. Allergies Allergen ID Allergen Name Allergen Category Reaction Reaction Severity Criticality Documentation Date Start Date Code Code System Note Provider Name and Address Organization Details Recorded Time 64790 Product containin g angiotens in-conver ting enzyme inhibitor (product) medicatio n angioedem a severe Not available 04/28/20242024 03811 009 SNOMED Not Available Not Available Not Available 14708 enalapril Not available Not available Not available high 04/28/20242017 3827 RxNorm Other react ion(s ): Anaph ylaxi s Not Available Not Available Not Available 57594 metformin medicatio n Not available Not available Not available 04/28/20242024 6809 RxNorm Not Available Not Available Not Available 76301 hydromorp cb medicatio n Not available Not available high 04/28/20242022 3423 RxNorm Other react ion(s ): TINGL ING, PT DOES NOT LIKE THE FEELI NG MED GIVES HER Not Available Not Available Not Available 78266 azithromy josephine medicatio n Not available Not available Not available 05/03/2024 28284 RxNorm Not Available Not Available Not Available 98541 erythromy josephine medicatio n anaphylax is Not available high 05/03/20242010 4053 RxNorm Other react ion(s ): Hives /Urti caria , pustu les over entir e body, Unkno wn Other React ion(s ): Unkno wn Not Available Not Available Not Available 58017 lisinopri l medicatio n Not available Not available Not available 05/03/2024 57141 RxNorm Not Available Not Available Not Available 58380 metoprolo l Not available Not available Not [...] Not Available Not Available No t Available [facility] Ultra Test strips USE DIRECTED TO TEST [...] ml subcutane ously in the morning every Wed for DM 2024 active Not Available Not [...] Updated DateTime 5 165.1 cm 27.1 kg/m2 29341.1 2 g 78 /min 18 /min 97.5 [degF] 95 % 95 % 124 mm[Hg] 62 mm[Hg] Chiquita Guardado MD [address], [address], [place], [address] [facility] 5 17:39:40 Date Recorded Body height Heart rate Respiratory rate Body temperature Oxygen saturation Oxygen saturation in Arterial blood by Pulse oximetry Systolic blood pressure Diastolic blood pressure Provider Name and Address Organization Details Last Updated DateTime 5 165.1 cm 86 /min 18 /min 97.5 [degF] 96 % 96 % 129 mm[Hg] 78 mm[Hg] JOHAN VU NP [address], [address], [place], [address], [facility] 5 12:09:17 Date Recorded Body height Body temperature Respiratory rate Heart rate Oxygen saturation Oxygen saturation in Arterial blood by Pulse oximetry Provider Name and Address Organization Details Last Updated DateTime 5 165.1 cm 97.4 [degF] 20 /min 72 /min 95 % 95 % GEETA KWOK [address], [address], [place], [address], [facility] 5 16:23:28 Date Recorded Body height Heart rate Respiratory rate Body temperature Oxygen saturation Oxygen saturation in Arterial blood by Pulse oximetry Systolic blood pressure Diastolic blood pressure Provider Name and Address Organization Details Last Updated DateTime 5 165.1 cm 80 /min 20 /min 97.4 [degF] 95 % 95 % 155 mm[Hg] 65 mm[Hg] JOHAN VU NP [address], [address], [place], [address], [facility] 5 10:33:52 Date Recorded Body height Respiratory rate Oxygen saturation Oxygen saturation in Arterial blood by Pulse oximetry Provider Name and Address Organization Details Last Updated DateTime 05/04/2024 165.1 cm 20 /min 95 % 95 % GEETA KWOK [address], [address], [place], [address], [facility] 5 16:47:12 Social History Question Answer Notes LastModified by Organization Details LastModified Time Tobacco Smoking Status Former Smoker quit 2017, then started again, now none x 2 months. Chiquita Guardado MD [address], [address], [place], [address], [facility] 05/03/2024 22:40:28 Do You Have An Advance Directive? Yes Information not available 05/01/2024 What Is Your Level Of Alcohol Consumption? None Information not available 05/01/2024 What Is Your Code Status? Full Code Information not available 05/01/2024 Where Do You Live? [facility] With Information not available 05/03/2024 Legal Guardian? No Informati on not available 05/03/2024 Do You Have A Medical Power Of Manager Media? Yes Information not available 05/03/2024 What Was [...] Details Recorded Time Tdap [address] [facility] 04/29/2024 12:14:00 Tdap [address] [facility] 04/29/2024 12:14:06 Pneumococcal conjugate PCV [address] [facility] 04/29/2024 12:14:27 pneumococcal polysaccharide PPV23 [address] [facility] 04/29/2024 12:14:43 influenza, unspecified formulation 1 completed Samuel Jacks-Malik null, [facility] 04/29/2024 12:15:03 influenza, unspecified formulation 2 completed Samuel Jacks-Malik null, [facility] 04/29/2024 12:15:20 influenza, unspecified formulation 3 completed Samuel Jacks-Malik null, [facility] 04/29/2024 12:15:25 influenza, unspecified formulation 4 completed Samuel Jacks-Malik null, [facility] 04/29/2024 12:15:30 SARS-COV-2 (COVID-19) vaccine, UNSPECIFIED 1 completed Samuel Jacks-Malik null, [facility] 04/29/2024 12:16:07 SARS-COV-2 (COVID-19) vaccine, UNSPECIFIED 1 completed Samuel Jacks-Malik null, [facility] 04/29/2024 12:16:12 SARS-COV-2 (COVID-19) vaccine, UNSPECIFIED 1 completed Samuel Jacks-Malik null, [facility] 04/29/2024 12:16:16 SARS-COV-2 (COVID-19) vaccine, UNSPECIFIED 2 completed Samuel Jacks-Malik null, [facility] 04/29/2024 12:16:21 SARS-COV-2 (COVID-19) vaccine, UNSPECIFIED 2 completed Samuel Jacks-Malik null, [facility] 04/29/2024 12:16:27 SARS-COV-2 (COVID-19) vaccine, UNSPECIFIED 3 completed Samuel Jacks-Malik null, [facility] 04/29/2024 12:16:41 SARS-COV-2 (COVID-19) vaccine, UNSPECIFIED 4 completed Samuel Jacks-Malik null, [facility] 04/29/2024 12:16:51 zoster, unspecified formulation 3 completed Samuel Jacks-Malik null, [facility] 04/29/2024 12:17:13 zoster, unspecified formulation 3 completed Samuel che [place] [facility] 04/29/2024 12:17:19 Past Encounters Encounter ID Performer Location Encounter Start Date Encounter Closed Date Diagnosis/Indication Diagnosis SNOMED-CT Code Diagnosis ICD10 Code Diagnosis Note [id number] GEETA KWOK [place] [address] [place] [address] 04/29/2024 10:45:26 05/03/2024 09:36:15 Chronic obstructive pulmonary disease 53404049 J44.9 2 RSV/Influe nzaon presentati on O2 sats as low as 83 % and tachypneic 26tx inpatient with IV steroids, neb tx and abxcont doxycyclin e BID for 2 more dayscont on neb tx prn, albuterol inhaler prncont trelegy, respimat, dupixent. roflumilas tnow on prednisone taper , resume 2.5 mg when tapercompl etedmonito r resp status. Type 2 asa betes mellitus 43522858 E11.9 hx of neuropathy On trulicity, Insulin SSC, lyrica, jardiancec ont lantus at hsrobaxin prn for neuropathy painmonito r BGL TID Hypothyroidism 62281437 E03.9 continue on levothyrox inemonitor tsh prn Coronary arteriosclerosis 75826734 I25.10 HX of HLD, HTNon statincont on asamonitor for cardiac sx Essential hypertension 19613912 I10 cont on coreg dailymonit or BP Gout 66847317 M10.9 cont allopurino l dailyfollo w uric acid level prn Smoker 37405983 F17.200 reports that she has not smoked in 1 monthnow on nicotine patch 21 mgprovide support for cessation Hyperlipidemia 81635601 E78.5 cont atorvastat inmonitor labs prn Gastroesop hageal reflux disease without esophagitis 327984673 K21.9 cont omeprazole dailymonit or GI sx Allergic rhinitis 205429 04 J30.9 cont on fluticason e, montelukas t, cetirizine Leukocytosis 472974098 D 72.829 chronic from chronic steriod usefollow labs Low back pain 825645365 M54.50 cont lido patch qdpercocet prnon robaxin for neuropathy as well [id number] Chiquita Guardado MD [facility] [address] [place] [address] 05/03/2024 17:29:21 05/16/2024 12:42:00 Chronic obstructive pulmonary disease 87650814 J43.8 S/P several recent exacerbati ons, now back to baseline.C ompleted doxycyclin e 100 mg BID on ontinu e slow prednisone taper.Cont inue trelegy 100/62.5/2 5 mcg qd, dupixent 300 mg q 2 wks, combivent 2 puffs BID, roflumilas t 500 mcg qd, montelukas t 10 mg qd, and duonebs and/or albuterol MDI q 4 hrs prn.Monito r resp status.F/U with pulmonary as planned. Type 2 asa betes mellitus 17508877 E11.42 Some high sugars since here, likely due to prednisone , expect improvemen t as taper continues. Continue Lantus 35U BID, Trulicity 1.5 mg weekly, Jardiance 10 mg qd, and SSI.Contin ue Lyrica 100 mg TID and methocarbo mol 750 mg q 8 hrs prn for neuropathy pain.Monit or fingerstic ks TID and HgA1C as outpt. Hypothyroidism 97263015 E03.8 Continue on levothyrox ine 112 mcg qdMonitor TSH as outpt. Coronary arteriosclerosis 47947525 I25.10 No recent sxs.Contin ue atorvastat in 80 mg qd, carvedilol 6.25 mg BID (hold for SBP<90), and ASA 81 mg qd.Monitor for sxs.F/U with cardio as planned. Essential hypertension 90974888 I10 Good control on meds as above.Chantel tor BP and labs. Gout 94523472 M10.09 No current sxs.Contin ue allopurino l 100 mg qdMonitor for flare. Smoker 25048392 F17.200 No longer smoking since recent hospitaliz ations.Con tinue nicotine patch 21 mg qd, taper as outpt.Cont inue to encourage abstinence . Hyperlipidemia 96308225 E78.49 Continue atorvastat in 80 mg qdMonitor labs as outpt. Gastroesop hageal reflux disease without esophagitis 212090951 K21.9 No current sxs.Contin ue omeprazole qdMonitor GI sxs Allergic rhinitis 669409 04 J30.89 Continue fluticason e nasal spray, montelukas t, and cetirizine Monitor sxs. Leukocytosis 516984202 D 72.828 Thought to be due to prednisone .Monitor Low back pain 060716186 M54.59 Under fair control.Co ntinue robaxin and Lyrica as above and lidocaine patch qd, and Percocet 7.5/325 mg q 6 hrs prn.PT/OT as above. Intertrigo 89262777 L30. 4 Continue diflucan 150 mg qod x 3 doses and will start nystatin cream BID.Monito r for healing. Asthenia 58380548 R53.1 Very deconditio bernice.Needs PT/OT for strengthen ing, balance, gait training, safety and function.C ontinue fall precaution s.Monitor for safety. [id number] [place] [address] 05/04/2024 11:59:27 05/16/2024 14:09:43 Viral pharyngitis 4157467 B34.9 throat and tonsil noted with erythema and slight swelling, not exudateswi ll add lozenges take 1 prn Q2 and warm water and salt rinses for comfort qid prn Intertrigo 23291131 L30. 4 acute onset over 1-2 dayserythe matous and scattered dry patchy rash noted covering vast majority of left and right buttockscu rrently rx diflucan qod for 3 dosesdue to pruritis will add clotrimazo le/beta BID for 10 daydiscuss ed with nursing will re eval in [id number] [place] [address] 05/05/2024 12:08:09 05/10/2024 11:42:42 Chronic obstructive pulmonary disease 93792169 J44.9 2/2 RSV/Influe nzaDoing betterWean ed off B6Vdujeqjy off prednisone .Doxy completed. Continue nebs and inhalers.C ombivent dose currently 2 inh bid, not typical but will not change as med managed by Pulmonolog ist.Monito r Type 2 asa betes mellitus 72771563 E11.9 BS borderline low in am and at lunchStill on prednisone taper.Disc ussed with pt.Plan -Continue trulicity and jardiance and SSIReduce lantus to 25 units q HS, continue 35 units in amAdd large portions to diet, refer to puppet developer per pt. request, and assure HS snack (manuela crackers and PB on dinner tray)Monit or closely and adjust meds as needed. Hypothyroidism 09019698 E03.9 continue on levothyrox inemonitor tsh prn Coronary arteriosclerosis 86999304 I25.10 HX of HLD, HTNon statin, coreg, ASAmonitor for cardiac sx Essential hypertension 15285951 I10 cont on coreg dailymonit or BP Gout 86571460 M10.9 cont allopurino l dailyfollo w uric acid level prn Smoker 99608919 F17.200 reports that she has not smoked in 1 monthnow on nicotine patch 21 mgprovide support for cessation Hyperlipidemia 11167319 E78.5 cont atorvastat inmonitor labs prn Gastroesop hageal reflux disease without esophagitis 231814960 K21.9 cont omeprazole daily - came in on this doseUnsure of baseline, but will continue this dose for now, mahesh. with higher doses of prednisone .Consider dose taper when more stable and if stays LTC.monito r GI sx Allergic rhinitis 109810 04 J30.9 cont on fluticason e, montelukas t, cetirizine Leukocytosis 169084489 D 72.829 chronic from chronic steriod use - improving. 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 [id number] GEETA KWOK [address] [place] [address] 05/11/2024 13:31:15 05/12/2024 14:06:40 Type 2 diabetes mellitus 92040406 E11.9 BS borderline low in am and at lunchStill on prednisone taper.Cont inue trulicity and jardiance and SSIReduce lantus to 25 units q HS, continue 35 units in amMonitor closely and adjust meds as needed. Dermal mycosis 26511230 B36.9 Breast folds, buttocksCo ntinue diflucan and topical antifungal /steroid cream.Keep areas clean and dryMonitor closely. Gastroesop hageal reflux disease without esophagitis 324590070 K21.9 cont omeprazole daily - came in on this doseUnsure of baseline, but will continue this dose for now, mahesh. with higher doses of prednisone .Consider dose taper when more stable and if stays LTC.monito r GI sx Chronic ob structive pulmonary disease 55314944 J44.9 2 RSV/Influe nzaDoing betterWean ed off R1Bmykctex off prednisone .Doxy completed. Continue nebs and inhalers.C ombivent dose currently 2 inh bid, not typical but will not change as med managed by Pulmonolog ist.Monito r Leukocytosis 360293131 D 72.829 chronic from chronic steriod use - improving. follow labs Essential hypertension 01003270 I10 cont on coreg dailymonit or BP Smoker 85216373 F17.200 reports that she has not smoked in 1 monthnow on nicotine patch 21 mgprovide support for cessation Pressure i njury of coccygeal region of back stage II 5429703343 4431584 L89.152 patient reporting coccyx painfollow ed by wound NPreiterat ed CONFERENCE CENTER MANAGER recommenda tions to Turn, reposition & offload Q2 hours & PRN to aid in wound healing. Encourage appropriat e dietary supplement ation to aid in wound healing. [id number] MANDO DAVID [address] [place] [address] 05/12/2024 10:32:45 05/20/2024 10:27:09 Type 2 diabetes mellitus 71788779 E11.9 BS borderline low a few weeks ago, lantus reduced to 35 units q am, 25 units q hs.Remains on trulicity, jardiance, and lispro SSI.BS improved on reduced dose of lantus.Of note, prednisone taper ending 05/15.Pt. will continue to monitor BS at home and adjust insulin as needed. Dermal mycosis 36693420 B36.9 Breast folds, buttocks; now improving. Completed diflucan.M ay continue topical antifungal /steroid cream.Keep areas clean and dryMonitor closely. Gastroesop hageal reflux disease without esophagitis 087437564 K21.9 cont omeprazole daily Chronic ob structive pulmonary disease 40419746 J44.9 2/ RSV/Influe nzaResolve d.Weaned off V1Ispaajbh off prednisone .Doxy completed. Continue nebs and inhalers.M onitor Leukocytosis 488491143 D 72.829 chronic from chronic steriod use - improving. follow labs as outpt. Hypothyroidism 78870598 E03.9 continue on levothyrox inemonitor tsh prn Coronary arteriosclerosis 49017769 I25.10 HX of HLD, HTNon statin, coreg, ASAmonitor for cardiac sx Essential hypertension 10651648 I10 cont on coreg dailymonit or BP Gout 01591627 M10.9 cont allopurino l dailyfollo w uric acid level prn Smoker 54414186 F17.200 reports that she has not smoked in 1 monthnow on nicotine patch 21 mgprovide support for cessation - wishes to continue to not smoke upon d/c home. Hyperlipidemia 63101293 E78.5 cont atorvastat inmonitor labs prn Allergic rhinitis 452033 04 J30.9 cont on fluticason e, montelukas t, cetirizine Low back pain 438728782 M54.50 cont lido patch qdpercocet prnon robaxin for neuropathy as well Health Concerns Section Related Observation LastModified by Organization Detai ls LastModified Time None Recorded Concern Status LastModified by Organization Details LastModified Time None Recorded Advance Directives Directive Y: Payers Encounter Date Sequence Insurance Name Policy Number Policy Mendez Covered Member ID Mendez Member ID Guarantor Name 05/03/2024 1 [facility] - DOS ON OR AFTER 2022 - MEDICARE [place]AGE [place]/ADV ANTAGE - PPO) Marita Lawrence [id number] Marita Lawrence 05/04/2024 1 [facility] - DOS ON OR AFTER 2022 - [place]V ANTAGE - PPO) Marita Lawrence [id number] Marita Lawrence 05/05/2024 1 [facility] - DOS ON OR AFTER 2022 - [place]/ADV ANTAGE - PPO) Marita Lawrence [id number] Marita Ramirez [place] 05/11/2024 1 [facility] - DOS ON OR AFTER 2022 - [place]/ADV ANTAGE - PPO) Marita Lawrence [id number] Marita Ramirez [place] 05/12/2024 1 [facility] - DOS ON OR AFTER 2022 - [place] RE[place]/ADV ANTAGE - PPO) Marita Lawrence [id number] Marita Lawrence Notes Date Note Type Note [...] influenza also on [facility]14. [facility] and hypoxia.She had an elevated WBC attributed to steroid use.CXR was non-acute.She was tachycardic and needing oximask to maintain sats >90%.She was restarted on solumedrol and doxy, continued on duonebs, and usual inhalers.Seen by pulmonary who recommended higher dose and more prolonged steroids.She was able to be weaned back to home level of O2, 2L by VT, but remained weak and wastransferred here for [...] with post-op hypothyroidism. Chiquita Guardado MD [address], [address], [place], [address], [facility] 05/14/2024 17:33:09 5 text/html Marita is seen [...] dot and spread quickly. GEETA KWOK [address], [address], [place], [address], [facility] 05/13/2024 16:49:37 5 text/html Marita is seen [...] snack. She is requesting to see the puppet developer.She then shows me the rash on her [...] with post-op hypothyroidism. JOHAN VU NP [address], [address], [place], [address], [facility] 05/05/2024 12:42:06 5 text/html This is a [...] is nio acute concerns. GEETA KWOK [address], [address], [place], [address], [facility] 05/11/2024 16:45:23 5 text/html Marita is seen [...] with post-op hypothyroidism. JOHAN VU NP [address] [place] [address], [address], [place], [address], [facility] 05/20/2024 10:22:41 OBGyn Episode No OBEpisode recorded.
--- OUTSIDE RECORDS SUMMARY | 2024-05-31 12:42 | XMS_ITS | Continuity of Care Document ---
Author Organization [facility], [place] Address [place] [address] Care Team Providers Care Skiver Box Toe Name Role Phone [facility] OTHER NAME, MOHINI Primary Care Provider Assessment Encounter Date Assessment Date Assessment LastModified by Organization Details LastModified Time 05/12/2024 05/12/2024 45 minutes spent on coordination [...] exacerbatio n of chronic obstructive pulmonary disease 350483905 Active 2024 Not Available [facility] 13:13:30 Pneumonia caused by Influenza A virus 392176433 Active 2024 Not Available [facility] 12:06:26 Pneumonia caused by respiratory syncytial virus 300319465 Active 2024 Not Available [facility] 12:06:27 Type 2 diabetes mellitus 67013474 Active 2024 Not Available [facility] 12:09:46 Essential hypertensio n 62323302 Active 2024 Not Available [facility] 12:10:17 Hypothyroid ism 49403956 Active 2024 Not Available [facility] 5 12:10:48 Gastroesoph ageal reflux disease without esophagitis 441481787 Active 2024 Not Available [facility] 5 12:11:49 Primary gout 69427840 Active 2024 Not Available [facility] 5 12:11:50 Muscle weakness 37039721 Active 2024 Not Available [facility] 5 09:55:06 Unsteady when standing 214727676 Active 2024 Not Available [facility] 5 09:56:09 Difficulty walking 964901632 Active 2024 Not Available [facility] 5 09:56:40 Chronic obstructive pulmonary disease 27702159 Active 2024 GEETA KWOK [address] [facility], [address], [place], [address] , [facility] 5 14:52:55 Leukocytosi s 702355796 Active 2024 from steriod use GEETA KWOK [address] [facility], [address], [place], [address] , [facility] 5 14:54:46 Coronary arterioscle rosis 72706479 Active 2024 GEETA KWOK [address] [facility], [address], [place], [address] , [facility] 5 15:05:30 Gout 52303097 Active 2024 GEETA KWOK [address] , [address], [place], [address] , [facility] 5 15:09:53 Allergic rhinitis 41869849 Active 2024 GEETA KWOK [address] [facility], [address], [address] , [facility] 5 15:17:53 Smoker 44310252 Active 2024 [address]WOK [address], [address], [place], [address] , [facility] 15:27:03 Uncomplicat ed asthma 716833273 Active 2024 Not Available [facility] 5 14:07:57 Old myocardial infarction 9707511 Active 2024 Not Available [facility] 5 14:08:17 Obstructive sleep apnea syndrome 33112773 Active 2024 Not Available [facility] 5 14:09:00 Disorder of nervous system due to type 2 diabetes mellitus 080701151 Active 2024 Not Available [facility] 5 14:09:32 Problem Notes None recorded. Medical Equipment None Reported. Allergies Allergen ID Allergen Name Allergen Category Reaction Reaction Severity Criticality Documentation Date Start Date Code Code System Note Provider Name and Address Organization Details Recorded Time 84125 Product containin g angiotens in-conver ting enzyme inhibitor (product) medicatio n angioedem a severe Not available 04/28/20242024 16067 009 SNOMED Not Available Not Available Not Available 37040 enalapril Not available Not available Not available high 04/28/20242017 3827 RxNorm Other react ion(s ): Anaph ylaxi s Not Available Not Available Not Available 80756 metformin medicatio n Not available Not available Not available 04/28/20242024 6809 RxNorm Not Available Not Available Not Available 63075 hydromorp cb medicatio n Not available Not available high 04/28/20242022 3423 RxNorm Other react ion(s ): TINGL ING, PT DOES NOT LIKE THE FEELI NG MED GIVES HER Not Available Not Available Not Available 48732 azithromy josephine medicatio n Not available Not available Not available 05/03/2024 16467 RxNorm Not Available Not Available Not Available 78505 erythromy josephine medicatio n anaphylax is Not available high 05/03/20242010 4053 RxNorm Other react ion(s ): Hives /Urti caria , pustu les over entir e body, Unkno wn Other React ion(s ): Unkno wn Not Available Not Available Not Available 02545 lisinopri l medicatio n Not available Not available Not available 05/03/2024 82552 RxNorm Not Available Not Available Not Available 43035 metoprolo l Not available Not available Not [...] Available Not Available No t Available OneTouch Ultra Test strips USE DIRECTED TO TEST [...] mm[Hg] 65 mm[Hg] JOHAN VU NP [address] [facility], [address], [place], [address], [facility] 10:33:52 Social History Question Answer Notes LastModified by Organization Details LastModified Time Tobacco Smoking Status Former Smoker quit 2017, then started again, now none x 2 months. Chiquita Guardado MD [address] [facility], [address], [place], [address], [facility] 05/03/2024 22:40:28 Do You Have An Advance Directive? Yes Information not available 05/01/2024 What Is Your Level Of Alcohol Consumption? None Information not available 05/01/2024 What Is Your Code Status? Full Code Information not available 05/01/2024 Where Do You Live? [facility] With Information not available 05/03/2024 Legal Guardian? No Informati on not available 05/03/2024 Do You Have A Medical Power Of Pleat Taper? Yes Information not available 05/03/2024 What Was [...] Recorded Time Tdap 0 completed Samuel Ta [facility] 04/29/2024 12:14:00 Tdap 3 completed Samuel Ta [facility] 04/29/2024 12:14:06 Pneumococcal [facility]V 13 3 [facility] 12:14:27 pneumococcal polysaccharide PPV23 0 completed Samuel Chappell [facility] 04/29/2024 12:14:43 influenza, unspecified formulation 1 completed Samuel Chappell [facility] 04/29/2024 12:15:03 influenza, unspecified formulation 2 completed Samuel Chappell [facility] 04/29/2024 12:15:20 influenza, unspecified formulation 3 completed Samuel Chappell [facility] 04/29/2024 12:15:25 influenza, unspecified formulation 4 completed Samuel Ta [facility] 04/29/2024 12:15:30 SARS-COV-2 (COVID-19) vaccine, UNSPECIFIED 1 completed Samuel Chappell [facility] 04/29/2024 12:16:07 SARS-COV-2 (COVID-19) vaccine, UNSPECIFIED 1 completed Samuel Chappell [facility] 04/29/2024 12:16:12 SARS-COV-2 (COVID-19) vaccine, UNSPECIFIED 1 completed Samuel Chappell [facility] 04/29/2024 12:16:16 SARS-COV-2 (COVID-19) vaccine, UNSPECIFIED 2 completed Samuel Wang-Malik [facility] 04/29/2024 12:16:21 SARS-COV-2 (COVID-19) vaccine, UNSPECIFIED 2 completed Samuel Ta [facility] 04/29/2024 12:16:27 SARS-COV-2 (COVID-19) vaccine, UNSPECIFIED 3 completed Samuel Ta [facility] 04/29/2024 12:16:41 SARS-COV-2 (COVID-19) vaccine, UNSPECIFIED 4 completed Samuel Felipe-Malik [facility] 04/29/2024 12:16:51 zoster, unspecified formulation 3 completed [facility] Ta [facility] 04/29/2024 12:17:13 zoster, unspecified formulation 3 completed [facility] 12:17:19 Past Encounters Encounter ID Performer Location Encounter Start Date Encounter Closed Date Diagnosis/Indication Diagnosis SNOMED-CT Code Diagnosis ICD10 Code Diagnosis Note [id number] GEETA KWOK [address] [place] [address] 04/29/2024 10:45:26 05/03/2024 09:36:15 Chronic obstructive pulmonary disease 65938349 J44.9 2/2 RSV/Influe nzaon presentati on O2 sats as low as 83 % and tachypneic 26tx inpatient with IV steroids, neb tx and abxcont doxycyclin e BID for 2 more dayscont on neb tx prn, albuterol inhaler prncont trelegy, respimat, dupixent. roflumilas tnow on prednisone taper , resume 2.5 mg when tapercompl etedmonito r resp status. Type 2 asa betes mellitus 72701748 E11.9 hx of neuropathy On trulicity, Insulin SSC, lyrica, jardiancec ont lantus at hsrobaxin prn for neuropathy painmonito r BGL TID Hypothyroidism 27403552 E03.9 continue on levothyrox inemonitor tsh prn Coronary arteriosclerosis 86347186 I25.10 HX of HLD, HTNon statincont on asamonitor for cardiac sx Essential hypertension 40531859 I10 cont on coreg dailymonit or BP Gout 61690289 M10.9 cont allopurino l dailyfollo w uric acid level prn Smoker 18921726 F17.200 reports that she has not smoked in 1 monthnow on nicotine patch 21 mgprovide support for cessation Hyperlipidemia 74573056 E78.5 cont atorvastat inmonitor labs prn Gastroesop hageal reflux disease without esophagitis 934316301 K21.9 cont omeprazole dailymonit or GI sx Allergic rhinitis 831599 04 J30.9 cont on fluticason e, montelukas t, cetirizine Leukocytosis 084540251 D 72.829 chronic from chronic steriod usefollow labs Low back pain 109939679 M54.50 cont lido patch qdpercocet prnon robaxin for neuropathy as well [id number] MD SCOTT Harris [address] [place] [address] 05/03/2024 17:29:21 05/16/2024 12:42:00 Chronic obstructive pulmonary disease 08637060 J43.8 S/P several recent exacerbati ons, now [...] as planned. Type 2 asa betes mellitus 52290518 E11.42 Some high sugars since here, likely due to prednisone , expect improvemen t as taper continues. Continue Lantus 35U BID, Trulicity 1.5 mg weekly, Jardiance 10 mg qd, and SSI.Contin ue Lyrica 100 mg TID and methocarbo mol 750 mg q 8 hrs prn for neuropathy pain.Monit or fingerstic ks TID and HgA1C as outpt. Hypothyroidism 94150698 E03.8 Continue on levothyrox ine 112 mcg qdMonitor TSH as outpt. Coronary arteriosclerosis 12871886 I25.10 No recent sxs.Contin ue atorvastat in 80 mg qd, carvedilol 6.25 mg BID (hold for SBP<90), and ASA 81 mg qd.Monitor for sxs.F/U with cardio as planned. Essential hypertension 59018810 I10 Good control on meds as above.Chantel tor BP and labs. Gout 89839279 M10.09 No current sxs.Contin ue allopurino l 100 mg qdMonitor for flare. Smoker 76384507 F17.200 No longer smoking since recent hospitaliz ations.Con tinue nicotine patch 21 mg qd, taper as outpt.Cont inue to encourage abstinence . Hyperlipidemia 61518692 E78.49 Continue atorvastat in 80 mg qdMonitor labs as outpt. Gastroesop hageal reflux disease without esophagitis 451655688 K21.9 No current sxs.Contin ue omeprazole qdMonitor GI sxs Allergic rhinitis 948091 04 J30.89 Continue fluticason e nasal spray, montelukas t, and cetirizine Monitor sxs. Leukocytosis 826708611 D 72.828 Thought to be due to prednisone .Monitor Low back pain 477154762 M54.59 Under fair control.Co ntinue robaxin and Lyrica as above and lidocaine patch qd, and Percocet 7.5/325 mg q 6 hrs prn.PT/OT as above. Intertrigo 94725142 L30. 4 Continue diflucan 150 mg qod x 3 doses and will start nystatin cream BID.Monito r for healing. Asthenia 42376301 R53.1 Very deconditio bernice.Needs PT/OT for strengthen ing, balance, gait training, safety and function.C ontinue fall precaution s.Monitor for safety. [id number] [place] [address] 05/04/2024 11:59:27 05/16/2024 14:09:43 Viral pharyngitis 7146979 B34.9 throat and tonsil noted with erythema and slight swelling, not exudateswi ll add lozenges take 1 prn Q2 and warm water and salt rinses for comfort qid prn Intertrigo 03470258 L30. 4 acute onset over 1-2 dayserythe matous and scattered dry patchy rash noted covering vast majority of left and right buttockscu rrently rx diflucan qod for 3 dosesdue to pruritis will add clotrimazo le/beta BID for 10 daydiscuss ed with nursing will re eval in [id number] [place] [address] 05/05/2024 12:08:09 05/10/2024 11:42:42 Chronic obstructive pulmonary disease 32311555 J44.9 2/2 RSV/Influe nzaDoing [facility] ed off Z6Qyoktuub off prednisone .Doxy completed. Continue nebs and inhalers.C ombivent dose currently 2 inh bid, not typical but will not change as med managed by Pulmonolog ist.Monito r Type 2 asa betes mellitus 96839337 E11.9 BS borderline low in am and at lunchStill on prednisone taper.Disc ussed with pt.Plan -Continue trulicity and jardiance and SSIReduce lantus to 25 units q HS, continue 35 units in amAdd large portions to diet, refer to education and outreach coordinator per pt. request, and assure HS snack (manuela crackers and PB on dinner tray)Monit or closely and adjust meds as needed. Hypothyroidism 18859601 E03.9 continue on levothyrox inemonitor tsh prn Coronary arteriosclerosis 39051125 I25.10 HX of HLD, HTNon statin, coreg, ASAmonitor for cardiac sx Essential hypertension 68262649 I10 cont on coreg dailymonit or BP Gout 42044198 M10.9 cont allopurino l dailyfollo w uric acid level prn Smoker 78285606 F17.200 reports that she has not smoked in 1 monthnow on nicotine patch 21 mgprovide support for cessation Hyperlipidemia 42006441 E78.5 cont atorvastat inmonitor labs prn Gastroesop hageal reflux disease without esophagitis 377347733 K21.9 cont omeprazole daily - came in on this doseUnsure of baseline, but will continue this dose for now, mahesh. with higher doses of prednisone .Consider dose taper when more stable and if stays LTC.monito r GI sx Allergic rhinitis 296949 04 J30.9 cont on fluticason e, montelukas t, cetirizine Leukocytosis 809658739 D 72.829 chronic from chronic steriod use - improving. 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 [id number] GEETA KWOK [address] [place] [address] 05/11/2024 13:31:15 05/12/2024 14:06:40 Type 2 diabetes mellitus 63171224 E11.9 BS borderline low in am and at lunchStill on prednisone taper.Cont inue trulicity and jardiance and SSIReduce lantus to 25 units q HS, continue 35 units in amMonitor closely and adjust meds as needed. Dermal mycosis 70951721 B36.9 Breast folds, buttocksCo ntinue diflucan and topical antifungal /steroid cream.Keep areas clean and dryMonitor closely. Gastroesop hageal reflux disease without esophagitis 307633353 K21.9 cont omeprazole daily - came in on this doseUnsure of baseline, but will continue this dose for now, mahesh. with higher doses of prednisone .Consider dose taper when more stable and if stays LTC.monito r GI sx Chronic ob structive pulmonary disease 26241835 J44.9 2/2 RSV/Influe nzaDoing betterWean ed off Z5Tmiswark off prednisone .Doxy completed. Continue nebs and inhalers.C ombivent dose currently 2 inh bid, not typical but will not change as med managed by [facility].Monito r Leukocytosis 950260757 D 72.829 chronic from chronic steriod use - improving. follow labs Essential hypertension 32483937 I10 cont on coreg dailymonit or BP Smoker 73049516 F17.200 reports that she has not smoked in 1 monthnow on nicotine patch 21 mgprovide support for cessation Pressure i njury of coccygeal region of back stage II 3745655096 3236930 L89.152 patient reporting coccyx painfollow ed by wound NPreiterat ed CURING OVEN TENDER recommenda tions to Turn, reposition & offload Q2 hours & PRN to aid in wound healing. Encourage appropriat e dietary supplement ation to aid in wound healing. [id number] JOHAN VU NP [facility] [address] [place] [address] 05/12/2024 10:32:45 05/20/2024 10:27:09 Type 2 diabetes mellitus 20562566 E11.9 BS borderline low a few weeks ago, lantus reduced to 35 units q am, 25 units q hs.Remains on trulicity, jardiance, and lispro SSI.BS improved on reduced dose of lantus.Of note, prednisone taper ending 05/15.Pt. will continue to monitor BS at home and adjust insulin as needed. Dermal mycosis 21444875 B36.9 Breast folds, buttocks; now improving. Completed diflucan.M ay continue topical antifungal /steroid cream.Keep areas clean and dryMonitor closely. Gastroesop hageal reflux disease without esophagitis 065676227 K21.9 cont omeprazole daily Chronic ob structive pulmonary disease 34535733 J44.9 2/2 RSV/Influe nzaResolve d.Weaned off L3Dvzrohhb off prednisone .Doxy completed. Continue nebs and inhalers.M onitor Leukocytosis 332993062 D 72.829 chronic from chronic steriod use - improving. follow labs as outpt. Hypothyroidism 68250784 E03.9 continue on levothyrox inemonitor tsh prn Coronary arteriosclerosis 36232392 I25.10 HX of HLD, HTNon statin, coreg, ASAmonitor for cardiac sx Essential hypertension 43233651 I10 cont on coreg dailymonit or BP Gout 74759464 M10.9 cont allopurino l dailyfollo w uric acid level prn Smoker 92946534 F17.200 reports that she has not smoked in 1 monthnow on nicotine patch 21 mgprovide support for cessation - wishes to continue to not smoke upon d/c home. Hyperlipidemia 53928480 E78.5 cont atorvastat inmonitor labs prn Allergic rhinitis 183258 04 J30.9 cont on fluticason e, montelukas t, cetirizine Low back pain 981032429 M54.50 cont lido patch qdpercocet prnon robaxin for neuropathy as well Health Concerns Section Related Observation LastModified by Organization Detai ls LastModified Time None Recorded Concern Status LastModified by Organization Details LastModified Time None Recorded Payers Encounter Date Sequence Insurance Name Policy Number Policy Mendez Covered Member ID Mendez Member ID Guarantor Name 05/12/2024 1 [facility] - DOS ON OR AFTER 2022 - MEDICARE [place]VANTAGE [place] (MEDICARE REPLACEMENT/ADV ANTAGE - PPO) Marita Lawrence [id number] Marita Ashley Lawrence Notes Date Note Type Note Provider Name and Address Organization Details Recorded Time 05/12/2024 text/html Marita is seen tod ay for discharge visit. She a 63 yo [...] with post-op hypothyroidism. JOHAN VU NP [address] [facility], [address], [place], [address], [facility] 05/20/2024 10:22:41 OBGyn Episode No OBEpisode recorded.
--- OUTSIDE RECORDS SUMMARY | 2024-05-31 12:42 | XMS_ITS | Patient Health Record ---
Author Organization [facility] Address [address] [place] [address] Care Team Providers Care Chief Risk Officer Name Role Phone Name Bobby GRADY Primary Care Provider Brooks Carbajal [phone] ALLERGIES Allergen (clinical drug ingredient) Drug/Non Drug Allergy documented on EMR Reaction Allergy Type Onset Date Status erythromycin Erythromycin Unknown Drug Allergy A ctive REASON FOR REFERRAL No Information MEDICATIONS Medication SIG (Take, Route, Fr equency, Duration) Notes Start Date End Date Status Enalapril Maleate Ac tive Colace Active Senokot Active Benadryl Active Omeprazole 20 MG 1 capsule Orally Once a day Active amLODIPine Besylate Active Lactulose Active Percocet Active Naproxen Active Advair HFA Active predniSONE Active Cyclobenzaprine HCl Active Singulair Active NovoLOG Active Spiriva HandiHaler A ctive Lantus Active albuterol Active Ventolin HFA Active Cetirizine HCl Activ e SOCIAL HISTORY Tobacco Use: Social History Observation Description Date Details (start date - stop date) Current Smoker NA - NA Sex Assigned At : Social History Observation Description Sex Assigned At Unknown Tobacco Use/Smoking Question Answer Notes Patient is a current smoker When did you start smoking? AGE 15 How often do you smoke cigarettes? every day How many cigarettes a day do you smoke? 11-20 Alcohol Screen Question Answer Notes Did you have a drink contain ing alcohol in the past year? Yes How often did you have a dri nk containing alcohol in the past year? Monthly or less (1 point) How many drinks did you have on a typical day when you were drinking in the past year? 1 or 2 drinks (0 point) Points 1 Interpretation Negative PROBLEMS Problem Type ICD Code Onset Dates Problem Status W/U Status Risk SNOMED Code Notes Problem Encounter for screening for malignant neoplasm of colon (Z12.11) Active confirmed 293292637 Problem Family history of colon cancer (Z80.0) Active confirmed 945611496 Problem Constipation, unspecified constipation type (K59.00) Active confirmed 49587018 Problem History of colonic polyps (Z86.010) Active confirmed 719268795 PLAN OF TREATMENT Future Test Test Name Order Date COLONOSCOPY 10/24/2016 Insurance Providers Payer Name Payer Address Payer Phone Subscriber Number Group Number Insured Name Patient Relationship to Insured Coverage Start Date Coverage End Date MEDICARE OF [place] [address] [place] [id number] CLYDEAPURVA Self - patient is the insured MEDICAID OF [facility] [employer] [address] [place] [address] [id number] CLYDE APURVA Self - patient is the insured MEDICAL (GENERAL) HISTORY Medical History History ICD Code COPD/Asthma KIDNEY STONE-2012 IDDM Hypertension HERNIATED DISK X4 in neck and lower back ARTHRITIS KNEES AND HIPS Multiple colonoscopies since --history of colon polyps--last colonoscopy was in 2009--negative GERD--EGD in 2009--no esophagitis--minim al Denies OR,CVA,renal disease Surgical History Surgery Date(Month/Year) LUMPECTOMY --Benign Cholecystectomy Tonsillectomy Kidney stone--right
== END 2024-05-31 11:08 | disposition home or self-care (01) ==
PROVIDERS: PCP Internal Medicine Geriatric Medicine; Visit Provider Hospitalist
DX: J98.11 Atelectasis (principal); J44.9 Chronic obstructive pulmonary disease, unspecified; G47.33 Obstructive sleep apnea (adult) (pediatric); R91.8 Other nonspecific abnormal finding of lung field; R05.3 Chronic cough; T78.40XA Allergy, unspecified, initial encounter; J44.89 Other specified chronic obstructive pulmonary disease
CPT/HCPCS: 99214

== ENCOUNTER → 2024-05-31 10:25 | Outpatient (BNVA) | payer OTHER, SELFPAY | PROVIDERS: PCP Internal Medicine Geriatric Medicine; Visit Provider Hospitalist | DX: J98.11 Atelectasis (principal); J44.9 Chronic obstructive pulmonary disease, unspecified; J44.89 Other specified chronic obstructive pulmonary disease; G47.33 Obstructive sleep apnea (adult) (pediatric); R05.3 Chronic cough; T78.40XA Allergy, unspecified, initial encounter; R91.8 Other nonspecific abnormal finding of lung field | CPT/HCPCS: 99212 ==

== ENCOUNTER 2024-06-12 16:59 | Emergency (ER) | payer OTHER, SELFPAY ==
--- NOTE | ~2024-06-12 | XR_ITS ---
CLINICAL HISTORY: severe lower back pain 3 views lumbar spine Comparison: MR/ND - MR LUMBAR SPINE WO CON - 03/12/20 10:51 EST Findings: Alignment is within normal limits. Questionable irregularity along the anterior aspect of the superior endplate of L3. There is severe disc space narrowing at L5-S1. There is prominent facet hypertrophy within the lower lumbar spine. IMPRESSION: There are moderately severe degenerative changes most pronounced at L5-S1. There is questionable irregularity along the anterior superior endplate of L3. If there has been recent trauma, a mild compression deformity is possible although this may also be degenerative in nature. This was not present on an MRI from 2019 but is ultimately age indeterminate. This document has been electronically signed by: Montez Andre MD on 06/12/2024 18:34:24
[2024-06-12 17:14] VITALS: BP 117/69; PULSE 101; RESP 18; TEMP 36.4; O2SAT 96; BMI 28.3
--- NOTE | 2024-06-12 17:14 | ED.BACK ---
HPI - Back Pain/Injury General Chief Complaint: Back Pain/Injury Stated Complaint: back/leg pain Time Seen by Provider: 06/12/24 17:41 Source: patient Mode of arrival: ambulatory Limitations: no limitations History of Present Illness ED Provider: Colin Pena DO HPI Narrative: 63-year-old female with past medical history of tobacco use, CAD, insulin-dependent diabetes, COPD on 2 L home O2, hypertension, hypothyroidism, GERD, gout and chronic back pain with lumbar spondylosis, and radiculopathy status post laminectomy presents to the emergency department due to lower back pain radiating to the right hip and left leg and foot. Patient denies any falls or injuries. She has been taking Percocet at home without relief. She denies urinary incontinence, bowel incontinence or urinary retention. She denies saddle anesthesia. She denies numbness or weakness of her legs. She denies midline back pain. She is not anticoagulated. No history of intravenous drug abuse, recent spinal instrumentation (laminectomy 6-7 years ago)/ injections, or chronic steroid use. Not prescribed any anticoagulant medications. Related Data Home Medications ?Medication ?Instructions ?Recorded ?Confirmed aspirin 81 mg tablet,delayed 81 mg PO BEDTIME 12/24/19 05/31/24 release atorvastatin 80 mg tablet 80 mg PO BEDTIME 12/24/19 05/31/24 carvedilol 6.25 mg tablet 6.25 mg PO BID 12/24/19 05/31/24 cetirizine 10 mg tablet 10 mg PO DAILY PRN allergies 12/24/19 05/31/24 montelukast 10 mg tablet 10 mg PO BEDTIME 12/24/19 05/31/24 omeprazole 20 mg capsule,delayed 20 mg PO BID@0630,1630 12/24/19 05/31/24 release docusate sodium 100 mg capsule 1 cap PO BEDTIME Constipation 01/24/21 05/31/24 blood sugar diagnostic (FreeStyle #10 ea 10/07/21 05/31/24 Lite Strips) lancets 33 gauge (TRUEplus Lancets) #100 ea 10/07/21 05/31/24 naloxone 4 mg/actuation nasal spray 1 spray intranasal ONCE PRN Opioid 10/07/21 05/31/24 Overdose oxycodone-acetaminophen 7.5 mg-325 1 tab PO Q6H PRN severe pain 06/23/22 05/31/24 mg tablet sennosides 8.6 mg tablet (senna) 8.6 mg PO BID Constipation 01/30/23 05/31/24 nebulizers 06/03/23 05/31/24 empagliflozin 10 mg tablet 10 mg PO DAILY 02/10/24 05/31/24 (Jardiance) methocarbamol 750 mg tablet 750 mg PO Q8H PRN neuropathy 03/03/24 05/31/24 insulin glargine 100 unit/mL (3 35 unit subcut BID 04/07/24 05/31/24 mL) subcutaneous pen (Lantus Solostar U-100 Insulin) levothyroxine 112 mcg tablet 112 mcg PO DAILY@0600 04/07/24 05/31/24 lidocaine 5 % topical patch 1 patch topical DAILY PRN pain 04/07/24 05/31/24 pregabalin 100 mg capsule 100 mg PO TID 04/07/24 05/31/24 dulaglutide 1.5 mg/0.5 mL 1.5 mg subcut WE@0900 04/21/24 05/31/24 subcutaneous pen injector (Trulicity) dupilumab 300 mg/2 mL subcutaneous 300 mg subcut Q2W 04/21/24 05/31/24 pen injector (Dupixent) fluticasone fur. 100 mcg-umeclid 1 ea inhalation DAILY 04/21/24 05/31/24 62.5 mcg-vilant 25 mcg inhalat.powder (Trelegy Ellipta) fluticasone propionate 50 1 spray intranasal DAILY PRN 04/21/24 05/31/24 mcg/actuation nasal Congestion spray,suspension insulin aspart U-100 100 unit/mL 6 - 10 sliding scale dose subcut 04/21/24 05/31/24 (3 mL) subcutaneous pen (Novolog TIDAC FlexPen U-100 Insulin aspart) ipratropium 0.5 mg-albuterol 3 mg 3 ml inhalation QID PRN Shortness 04/21/24 05/31/24 (2.5 mg base)/3 mL nebulization Of Breath Or Wheezing soln ipratropium 20 mcg-albuterol 100 2 puff inhalation BID 04/21/24 05/31/24 mcg/actuation mist for inhalation (Combivent Respimat) Previous Rx's ?Medication ?Instructions ?Recorded Ventolin HFA 90 mcg/actuation 2 puff inhalation Q4-6H PRN for 07/27/23 aerosol inhaler (albuterol sulfate) wheezing #18 grams arm brace (HANK Elbow Brace) #1 ea 08/27/23 roflumilast 500 mcg tablet 500 mcg PO DAILY #30 tabs 10/22/23 nicotine 21 mg/24 hr daily 1 patch transdermal DAILY 28 days 10/28/23 transdermal patch #28 ea allopurinol 100 mg tablet 100 mg PO DAILY 90 days #90 tabs 02/10/24 doxycycline monohydrate 100 mg 100 mg PO Q12H #4 caps 04/26/24 capsule ipratropium 0.5 mg-albuterol 3 mg 3 ml inhalation RQ4H WHILE AWAKE 04/26/24 (2.5 mg base)/3 mL nebulization PRN Shortness Of Breath/Wheezing soln #270 mL prednisone 10 mg tablet See Rx Instructions .Route 04/28/24 .COMPLEX #60 tabs diazepam 5 mg tablet (Valium) 5 mg PO BEDTIME PRN muscle spasm 06/12/24 #12 tabs lidocaine 5 % topical patch 1 patch topical DAILY #30 ea 06/12/24 Allergies Allergy/AdvReac Type Severity Reaction Status Date / Time HANK Inhibitors Allergy Severe ANGIO Verified 06/12/24 17:16 [HANK INHIBITORS] EDEMA enalapril Allergy Severe Anaphylaxis Verified 06/12/24 17:16 erythromycin base Allergy Severe HIVES ALL Verified 06/12/24 17:16 [ERYTHROMYCIN BASE] OVER metformin Allergy Unknown Verified 06/12/24 17:16 hydromorphone [From DILAUDID] AdvReac Severe TINGLING, Verified 06/12/24 17:16 PT DOES NOT LIKE THE FEELING MED GIVES HER Review of Systems Review of Systems: Yes all other systems are reviewed and are negative [facility] Past Medical History Medical History (Updated 06/12/24 @ 20:19 by Colin Pena DO) Influenza A Asthma-COPD overlap syndrome Allergies History of back pain History of neuropathy Smokes tobacco daily Opioid dependence Nephrolithiasis Hyperlipidemia HTN (hypertension) Cardiomyopathy Myocardial infarction CAD (coronary artery disease) Cough Hypothyroidism, postsurgical Tubular adenoma Diabetes MCKAY (obstructive sleep apnea) Irritable bowel syndrome Hyperthyroidism Polycythemia Smoker Hypoxia COPD exacerbation Lesion of bronchus Tracheal anomaly Multinodular goiter Vitamin D deficiency Atelectasis Subclinical hyperthyroidism Goiter Pneumonia Pulmonary nodules COPD (chronic obstructive pulmonary disease) Surgical History History of coronary artery stent placement Hx of thyroidectomy History of thyroid surgery History of esophagogastroduodenoscopy (EGD) Hx of colonoscopy History of back surgery History of ureterostomy S/P lumpectomy, right breast History of cholecystectomy History of tonsillectomy Family History Family History Father No problems noted. Mother No problems noted. Paternal Aunt Diabetes Social History Social History Household Members: Significant Other Housing: House Do you presently have visiting nurse or other home services: Yes (PT) Alcohol intake: never Comment: declines alarm, steadt to walk short distance to commode Patient Tobacco Use Status: Former Tobacco user Tobacco use type: Cigar Cigarette Packs Per Day: 0.5 Cigarettes Per Day: 10 e-Cigarette/Vaping Use: Never Used Second Hand Smoke Exposure: Yes Substance Use Type: Other Advance Directives: Yes Advance Directives on File: Yes Advance Directives Date on File: 01/24/21 service: No Current occupational status: disabled Physical Exam Vital Signs: Vital Signs: Last Vital Signs Temp 97.9 F 06/12/24 20:40 Pulse 89 06/12/24 20:40 Resp 16 06/12/24 20:40 BP 103/61 06/12/24 20:40 Pulse Ox 98 06/12/24 20:40 O2 Del Method Room Air 06/12/24 20:40 BMI result Body Mass Index 28.3 Constitutional: ?Alert, oriented, speaking in full sentences, appears uncomfortable and is tearful at times HEENT: ?Normocephalic, atraumatic. ?Moist mucous membranes Eyes: ?PERRL, EOMI Neck: ?Supple, nontender Chest: ?No chest wall tenderness Respiratory: ?Lungs clear to auscultation, no increased work of breathing Cardio: ?Regular rate and rhythm, no murmur, 2+ radial and DP pulses symmetrically GI: ?Soft, nondistended, nontender Back: ?Normal range of motion, able to stand and ambulate. There is no midline tenderness. There is right paravertebral tenderness along the lumbar spine which has worsened more laterally along the lumbar musculature. No overlying skin changes. Skin: ?No rash, no lesions Neuro: ?Alert and oriented to person, place and time, moves all 4 extremities, no focal deficits, 5/5 strength of the bilateral lower extremities, sensation fully intact. Negative straight leg raise or contralateral leg raise. 1+ symmetrical patellar reflexes. Extremities: ?No swelling or tenderness, full range of motion Psych: ?Calm, alert and cooperative, appropriate behavior Course Course Course Narrative: This is a Rapid Medical Examination (RME) performed by Elsa Kelly PA-C in triage. Full HPI, ROS, assessment and treatment plan per primary provider in the Main ED. 63 yo female with history of chronic pain on chronic Perocet with history of chronic back pain due to failed back surgery and neuropathy who presents to the ER for evaluation of worsening right lower back and left leg/foot pain for the last 2 days. has not eaten or slept in 2 days due to the severe pain. no bowel or bladder incontinence. no recent trauma or injury. tearful in triage Plan: treat pain and reassess, XR lumbar spine and UA Medications Administered Discontinued Medications Generic Name Dose Route Start Last Admin Trade Name Freq PRN Reason Stop Dose Admin Diazepam 5 mg 06/12/24 18:58 06/12/24 19:25 Diazepam 5 Mg Tablet PO 06/12/24 18:59 5 mg ONCE ONE Administration Ketorolac Tromethamine 15 mg 06/12/24 18:58 06/12/24 19:24 Ketorolac Tromethamine 15 Mg/Ml Vial IM 06/12/24 18:59 15 mg ONCE ONE Administration Lidocaine 1 patch 06/12/24 18:58 06/12/24 19:24 Lidocaine 4 % Patch Adh..Patch TRANSDERMA 06/12/24 18:59 1 patch ONCE ONE Administration Protocol Medical Decision Making Medical Decision Making [facility] Narrative: Patient here with low back pain. I do not suspect epidural abscess- no fevers, no recent instrumentation, no IVDA. I do not suspect fracture as there is no history of trauma, no history of malignancy, no chronic steroid use. I do not suspect epidural hematoma- again, no trauma, no anticoagulation. Cauda equina / cord compression is unlikely given ability to ambulate, lack of saddle anesthesia, ability to maintain bowel and bladder function. Also, there is no midline tenderness. X-ray images performed shows questionable evidence of fracture of the L3 superior endplate but does not correlate clinically as the patient has had no trauma. At this point we will treat symptomatically for pain and ensure good follow up outpatient. Patient has improvement in her symptoms with diazepam, ketorolac and lidocaine patch. We prescribed diazepam and lidocaine patch and encouraged a few days of ibuprofen and continuation of Percocet or acetaminophen at home. The patient voice clear understanding that she should not take opiates and benzodiazepines at the same time. She will follow up with her primary care provider with consideration for evaluation by a technical documentation specialist if pain persists. Patient has been able to ambulate well after analgesics here agrees with plan for discharge. Return precautions given to return immediately to the emergency department if there are any new neurologic symptoms. Independent Interpretation I performed an independent interpretation of an: Plain X-Ray Interpretation: X-ray images of the lumbar spine per my independent interpretation show no acute bony abnormality with the exception of diffuse osteoarthrosis and mild scoliosis. Radiology Impression Discussion of test interpretation with radiology: I have reviewed the radiologist's reading. Radiologist Impression: IMPRESSION: There are moderately severe degenerative changes most pronounced at L5-S1. There is questionable irregularity along the anterior superior endplate of L3. If there has been recent trauma, a mild compression deformity is possible although this may also be degenerative in nature. This was not present on an MRI from 2019 but is ultimately age indeterminate. Discharge Plan Discharge Clinical Impression: Low back pain Qualifiers: Chronicity: acute Back pain laterality: right Sciatica presence: without sciatica Qualified Code(s): M54.50 - Low back pain, unspecified Patient Disposition: Home, Self-Care Instructions: Acute Low Back Pain (ED) Additional Instructions: You have been evaluated for acute back pain. Your x-ray shows moderate to severe degenerative disc changes mostly at L5-S1. Your pain has been improved with Toradol, lidocaine patch and Valium. We will prescribe the Valium and can take this to help with sleep. Please do not drive while taking this medication. You could also take in the morning if you have to control your pain at that time. Also take 600 mg of ibuprofen every 6 hours with food for the next several days, apply lidocaine patch once a day or heat or ice if this helps more and take acetaminophen 1000 mg every 8 hours unless you are already taking Percocet. Percocet has acetaminophen in it and you should not combine these. Do not take the Valium with other muscle relaxants at home. Please follow up with your primary care provider who may recommend a technical documentation specialist, especially if this pain does not improve in the next couple of weeks. Avoid bed rest but do not perform any activities that worsen the pain, especially repetitive activities. Return to the emergency department immediately if you develop ANY new or worsening symptoms, especially increased pain, losing control of your bladder or bowel movements, fevers (over 100.4 F), numbness in your groin/genital area, or numbness/tingling/weakness of the extremities. Prescriptions: New lidocaine 5 % adhesive patch,medicated 1 patch topical DAILY Qty: 30 0RF Rx Instructions: leave on most painful area for up to 12 hrs diazepam [Valium] 5 mg tablet 5 mg PO BEDTIME PRN (Reason: muscle spasm) Qty: 12 0RF No Action albuterol sulfate [Ventolin HFA] 90 mcg/actuation HFA aerosol inhaler 2 puff inhalation Q4-6H PRN (Reason: for wheezing) Qty: 18 11RF roflumilast 500 mcg tablet 500 mcg PO DAILY Qty: 30 11RF docusate sodium 100 mg capsule 1 cap PO BEDTIME insulin aspart U-100 [Novolog FlexPen U-100 Insulin] 100 unit/mL (3 mL) insulin pen 6 - 10 sliding scale dose subcut TIDAC Protocol: Insulin Correction Scale Less than or equal to 110 ---- Give (units): 0 111 to 150 Give (units): 0 151 to 200 Give (units): 2 201 to 250 Give (units): 4 251 to 300 Give (units): 6 301 to 350 Give (units): 8 Greater than 350 Give (units): 10 Call MD if Blood Glucose > : 350 Combivent Respimat 20-100 mcg/actuation mist 2 puff INHALATION BID Trulicity 1.5 mg/0.5 mL pen injector 1.5 mg subcut WE@0900 Trelegy Ellipta 100-62.5-25 mcg blister with device 1 ea INHALATION DAILY Dupixent Pen 300 mg/2 mL pen injector 300 mg SUBCUT Q2W fluticasone propionate 50 mcg/actuation Thompson,Suspension 1 spray INTRANASAL DAILY PRN (Reason: Congestion) Rx Instructions: administer into each nostril ipratropium-albuterol 0.5 mg-3 mg(2.5 mg base)/3 mL solution for nebulization 3 ml inhalation QID PRN (Reason: Shortness Of Breath Or Wheezing) doxycycline monohydrate 100 mg Capsule 100 mg PO Q12H Qty: 4 0RF ipratropium-albuterol 0.5 mg-3 mg(2.5 mg base)/3 mL Solution For Nebulization 3 ml inhalation RQ4H WHILE AWAKE PRN (Reason: Shortness Of Breath/Wheezing) Qty: 270 0RF prednisone 10 mg tablet See Rx Instructions .ROUTE .COMPLEX Qty: 60 0RF Rx Instructions: 40 mg daily for 4 days, then 30 mg daily for 4 days, then 20 mg daily for 4 days, then 10 mg daily for 4 days, then 5 mg daily sennosides [senna] 8.6 mg Tablet 8.6 mg PO BID lidocaine 5 % adhesive patch,medicated 1 patch topical DAILY PRN (Reason: pain) insulin glargine [Lantus Solostar U-100 Insulin] 100 unit/mL (3 mL) insulin pen 35 unit SUBCUT BID Rx Instructions: PER PATIENT, MAY REQUIRE HIGHER DOSES WHEN ON STEROIDS levothyroxine 112 mcg tablet 112 mcg PO DAILY@0600 pregabalin 100 mg capsule 100 mg PO TID omeprazole 20 mg capsule,delayed release(DR/EC) 20 mg PO BID@0630,1630 aspirin 81 mg tablet,delayed release (DR/EC) 81 mg PO BEDTIME carvedilol 6.25 mg tablet 6.25 mg PO BID atorvastatin 80 mg tablet 80 mg PO BEDTIME Protocol: Hold for SBP< HOLD for SBP < : 90 montelukast 10 mg tablet 10 mg PO BEDTIME cetirizine 10 mg tablet 10 mg PO DAILY PRN (Reason: allergies) (DME) lancets [TRUEplus Lancets] 33 gauge misc See Rx Instructions .ROUTE TID Qty: 100 Rx Instructions: As directed (DME) FreeStyle Lite Strips Strip See Rx Instructions .ROUTE TID Qty: 10 Rx Instructions: As directed naloxone 4 mg/actuation spray,non-aerosol 1 spray intranasal ONCE PRN (Reason: Opioid Overdose) oxycodone-acetaminophen 7.5-325 mg tablet 1 tab PO Q6H PRN (Reason: severe pain) nicotine 21 mg/24 hr patch 24 hour 1 patch transdermal DAILY 28 Days Qty: 28 6RF methocarbamol 750 mg tablet 750 mg PO Q8H PRN (Reason: neuropathy) (DME) nebulizers Misc See Rx Instructions .Route Rx Instructions: As directed (DME) HANK Elbow Brace Misc See Rx Instructions .Route Qty: 1 0RF Rx Instructions: As directed Jardiance 10 mg tablet 10 mg PO DAILY allopurinol 100 mg tablet 100 mg PO DAILY 90 Days Qty: 90 1RF Interventions: ED Discharge Assessment Last Done: 06/12/24 20:40 Print Language: Tongan
[2024-06-12 18:22] VITALS: BP 123/70; PULSE 102; RESP 22; TEMP 36.6; O2SAT 95
--- NOTE | 2024-06-12 18:24 | PC.NURSE ---
patient provided with new pad and underwear. patient up to commode to have bowel movement. able to stand independently to commode
[2024-06-12] MEDS: Lidocaine 4 % Patch ADH..PATCH 1 PATCH TRANSDERMA (19:24)
[2024-06-12] MEDS: Ketorolac Tromethamine 15 MG/ML VIAL IM (19:24)
[2024-06-12] MEDS: diazePAM 5 MG TABLET PO (19:25)
--- NOTE | 2024-06-12 19:53 | MHC.EDTECH ---
Gave patient a sandwich and a oliver kiki per doctor request. This staff will walk the patient after she finishes eating. Patient stated that she does not use a walker at home.
--- NOTE | 2024-06-12 20:01 | MHC.EDTECH ---
This life underwriter walked with patient and the patient stated that the pain was tolerable and better than it has been. Patient was not wincing and did not need to take any breaks while walking.
[2024-06-12 20:40] VITALS: BP 103/61; PULSE 89; RESP 16; TEMP 36.6; O2SAT 98
== END 2024-06-12 21:00 | disposition home or self-care (01) ==
PROVIDERS: Emergency Provider Emergency Medicine; PCP Internal Medicine Geriatric Medicine
DX: M54.50 Low back pain, unspecified (principal); G89.4 Chronic pain syndrome; E11.9 Type 2 diabetes mellitus without complications; I10 Essential (primary) hypertension; E78.5 Hyperlipidemia, unspecified; E03.9 Hypothyroidism, unspecified; J45.909 Unspecified asthma, uncomplicated; I25.2 Old myocardial infarction; F11.20 Opioid dependence, uncomplicated; F17.210 Nicotine dependence, cigarettes, uncomplicated; Z79.82 Long term (current) use of aspirin; Z79.02 Long term (current) use of antithrombotics/antiplatelets; Z79.899 Other long term (current) drug therapy; Z79.4 Long term (current) use of insulin; Z79.85 Long-term (current) use of injectable non-insulin antidiabetic drugs; Z79.891 Long term (current) use of opiate analgesic
CPT/HCPCS: 72100; 96372; 99284; J1885

== ENCOUNTER → 2024-06-12 17:16 | Outpatient (BNV) | payer OTHER, SELFPAY | PROVIDERS: Emergency Provider Emergency Medicine; PCP Internal Medicine Geriatric Medicine; Visit Provider Radiology Vascular & Interventional Radiology | DX: M51.360 Other intervertebral disc degeneration, lumbar region with discogenic back pain only (principal) | CPT/HCPCS: 72100 ==

== ENCOUNTER 2024-06-20 09:47 | Outpatient (REF) | payer OTHER, SELFPAY ==
--- NOTE | ~2024-06-20 | XR_ITS ---
EXAMINATION: XR CHEST CLINICAL INFORMATION: COPD COMPARISON: April 21, 2024. TECHNIQUE: 2 views of the chest were obtained. FINDINGS: Linear and patchy opacities in the inferior pulmonary hilum and lower hemithoraces. No pleural effusion or pneumothorax. Cardiomediastinal silhouette size is normal. Mild multilevel thoracolumbar spondylosis. XR/XR chest 2V IMPRESSION: Multifocal pneumonia involving mostly the right middle lung lobe. Electronically signed by: Rubio Kam MD 06/20/2024 10:18 AM EDT
== END 2024-06-20 09:48 | disposition home or self-care (01) ==
LOC: HO.HHCX 09:47
PROVIDERS: Visit Provider Emergency Medicine
DX: J44.9 Chronic obstructive pulmonary disease, unspecified (principal)
CPT/HCPCS: 71046

== ENCOUNTER → 2024-06-20 09:48 | Outpatient (BNV) | payer OTHER, SELFPAY | PROVIDERS: Visit Provider Radiology Diagnostic Radiology | DX: J18.9 Pneumonia, unspecified organism (principal) | CPT/HCPCS: 71046 ==

== ENCOUNTER 2024-07-05 11:05 | Outpatient (REF) | payer OTHER, SELFPAY ==
--- NOTE | ~2024-07-05 | XR_ITS ---
CLINICAL HISTORY: ongoing pneumonia symtpoms Exam: PA and lateral views of the chest. Comparison: June 20, 2024. Findings: Lungs are well inflated. Cardiac silhouette is within normal limits. Increasing consolidation within the right middle lobe. Lungs are otherwise clear. Impression: Worsening consolidation of the right middle lobe most characteristic of persistent pneumonia. This document has been electronically signed by: Geoff Brown MD on 07/06/2024 09:58:40
--- OUTSIDE RECORDS SUMMARY | 2024-07-05 13:31 | XMS_ITS | Encounter Summary ---
Author Organization [employer] Address [address] [place] [address] [address] [place] [address] Care Team Providers Care Supervisor Refractory Products Name Role Phone Name, Bobby GRADY Primary Care Provider [phone] Inga Magaña PharmD Unavailable [phone] Reason for Visit * Reason Comments Med Refill Encounter Details Date Type Department Care Team ([facility] Contact Info) Description 04/07/2022 Refill [facility] [address] [place] [address] Sherly Pichardo, ADVISORY APPLICATION DEVELOPER [address] [place] [address] Chronic low back pain with sciatica, sciatica [...] Upcoming Encounters Date Type Department Care Team ([facility] st Contact Info) Description 07/06/2024 11:00 AM EDT Office Visit [facility] [place] [address] Name, MD Bobby [facility] [place] [address] 09/02/2024 1:00 PM EDT Telemedicine [facility] [place] [address] Skye Melton, RN documented as of this encounter Visit Diagnoses Diagnosis Chronic low back pain with sciatica, sciatica laterality unspecified, unspecified back pain laterality documented in this encounter Additional Health Concerns Assessment Noted Time PHQ-9 Depression Total Score: 0 03/11/20 11:47 AM EST documented as of this encounter Care Teams Supervisor Refractory Products Relationship Specialty Start Date End Date Name, MD Bobby [facility] [place] [address] PCP - General Family Medicine 06/01/15 Inga Magaña PharmD [facility] [place] [address] Pharmacist Internal Medicine 01/07/23 09/29/23 [place] 05/13/24 documented as of this encounter
--- OUTSIDE RECORDS SUMMARY | 2024-07-05 13:31 | XMS_ITS | Encounter Summary ---
Author Organization [employer] Address [address] [place] [address] Care Team Providers Care Master Brewer Name Role Phone Name, Bobby GRADY Primary Care Provider [phone] Encounter Details Date Type Department Care Team (Late st Contact Info) Description 05/08/2024 Lab Requisition [facility] - Main Lab [address] [place] [address] Yared Weaver MD [address] [place] [address], [phone] Hypothyroidism, unspecified Social History Tobacco Use [...] LAB CHEMISTRY METHOD 05/09/2024 1:[address] [facility] Blood Venous blood specimen / Unknown Venipuncture / Unknown 05/09/2024 5:33 AM EST 05/09/2024 11:27 AM EST us Yared Weaver MD LAB BLOOD ORDERABLES Final Resul t [facility] [address] [place] [address], documented in this encounter Visit Diagnoses Diagnosis Hypothyroidism, unspecified documented in this encounter Care Teams Master Brewer Relationship Specialty Start Date End Date Name, MD Bobby [address], [place] PCP - General Internal Medicine 04/01/18 documented as of this encounter
--- OUTSIDE RECORDS SUMMARY | 2024-07-05 13:31 | XMS_ITS | Encounter Summary ---
Author Organization [employer] Address [address] [place] [address] Care Team Providers Care Domestic Technician Name Role Phone Name, Bobby GRADY Primary Care Provider [phone] Encounter Details Date Type Department Care Team (Latest Contact Info) Description 05/04/2024 Lab Requisition [facility] - Main Lab [address] [place] [address] Yared Weaver MD [address] [place] [address], [phone] Atherosclerotic heart disease of [place] coronary artery without angina pectoris Social History [...] 5:05 AM EST Atherosclerotic heart disease of [place] coronary artery without angina pectoris BASIC METABOLIC PANEL Routine 05/05/2024 5:05 AM EST Atherosclerotic heart disease of [place] coronary artery without angina pectoris documented in this encounter Results * (ABNORMAL) Basic metabolic panel (05/05/2024 5:05 AM EST) Sodium 144 133 - 145 mmol/L LAB CHEMISTRY METHOD 05/05/2024 11:28 AM EST [facility] Potassium 3.9 3.5 - 5.5 mmol/L [...] MD LAB BLOOD ORDERABLES Final Resul t [facility] [address] [place] [address], * (ABNORMAL) Complete blood count (05/05/2024 5:05 AM EST) [facility] WBC 13.8(H) 4.8 - 10.8 K/mcL LAB [...] LAB HEMETOLOGY METHOD 05/05/2024 11:24 AM EST [facility] LAB Blood Venous blood specimen / Unknown Venipuncture / Unknown 05/05/2024 5:05 AM EST 05/05/2024 9:37 AM EST us Yared Weaver MD LAB BLOOD ORDERABLES Final Resul t [facility] [address] [place] [address], documented in this encounter Visit Diagnoses Diagnosis Atherosclerotic heart disease of [place] coronary artery without angina pectoris documented in this encounter Care Teams Domestic Technician Relationship Specialty Start Date End Date Name, MD Bobby [address] [place], [place] PCP - General Internal Medicine 04/01/18 documented as of this encounter
--- OUTSIDE RECORDS SUMMARY | 2024-07-05 13:31 | XMS_ITS | Encounter Summary ---
Author Organization [employer] Address [address] [place] [address] Care Team Providers Care Plant Manager Name Role Phone Name, Bobby GRADY Primary Care Provider [phone] Encounter Details Date Type Department Care Team (Latest Contact Info) Description 05/11/2024 Lab Requisition [facility] - Main Lab [address] [place] [address] Yared Weaver MD [address] [place] [address], [phone] Atherosclerotic heart disease of [place] coronary artery without angina pectoris Social History [...] 8:21 AM EST Atherosclerotic heart disease of [place] coronary artery without angina pectoris BASIC METABOLIC PANEL Routine 05/12/2024 8:21 AM EST Atherosclerotic heart disease of [place] coronary artery without angina pectoris documented in this encounter Results * (ABNORMAL) Basic metabolic panel (05/12/2024 8:21 AM EST) Sodium 143 133 - 145 mmol/L LAB CHEMISTRY METHOD 05/12/2024 11:22 AM EST [facility] Potassium 3.6 3.5 - 5.5 mmol/L LAB CHEMISTRY METHOD 05/12/2024 11:22 AM [facility] Chloride 109 96 - 110 mmol/L LAB CHEMISTRY METHOD 05/12/2024 11:22 AM [facility] CO2 31 21 - 32 mmol/L LAB CHEMISTRY METHOD 05/12/2024 11:22 AM [facility] Anion Gap 3 3 - 11 LAB CHEMISTRY METHOD 05/12/2024 11:22 AM [facility] Glucose 95 70 - 100 mg/dL LAB CHEMISTRY METHOD 05/12/2024 11:22 AM [facility] BUN 21 5 - 25 mg/dL LAB CHEMISTRY METHOD 05/12/2024 11:22 AM [facility] Creatinine 0.80 0.50 - 1.10 mg/dL LAB CHEMISTRY METHOD 05/12/2024 11:22 AM [facility] eGFR 82 >=60 mL/min/1. 73m2 LAB CHEMISTRY METHOD 05/12/2024 11:22 AM [facility] Comment:Calculation based on the??Chronic Kidney Disease Epidemiology Collaboration (CKD-EPI) equation refit??without adjustment for race. BUN/Creatinine Ratio 26.3 LAB CHEMISTRY METHOD 05/12/2024 11:22 AM [facility] Calcium 8.0(L) 8.5 - 10.5 mg/dL LAB CHEMISTRY METHOD 05/12/2024 11:22 AM [facility] Blood Venous blood specimen / Unknown Venipuncture / Unknown 05/12/2024 8:21 AM EST 05/12/2024 10:56 AM EST us Yared Weaver MD LAB BLOOD ORDERABLES Final Resul t [facility] [address] [place] [address], * (ABNORMAL) Complete blood count (05/12/2024 8:21 AM EST) [facility] WBC 12.5(H) 4.8 - 10.8 K/mcL LAB HEMETOLOGY METHOD 05/12/2024 11:10 AM [facility] RBC 5.10(H) 3.80 - 4.80 M/mcL LAB HEMETOLOGY METHOD 05/12/2024 11:10 AM [facility] Hemoglobin 14.6 11.5 - 16.0 g/dL LAB HEMETOLOGY METHOD 05/12/2024 11:10 AM [facility] Hematocrit 46.7 35.0 - 47.0 % LAB HEMETOLOGY METHOD 05/12/2024 11:10 AM [facility] MCV 91.4 79.0 - 98.0 FL LAB HEMETOLOGY METHOD 05/12/2024 11:10 AM [facility] MCH 28.6 27.0 - 32.0 pcg LAB HEMETOLOGY METHOD 05/12/2024 11:10 AM [facility] MCHC 31.3(L) 32.0 - 37.0 g/dL LAB HEMETOLOGY METHOD 05/12/2024 11:10 AM [facility] RDW 16.3(H) 11.0 - 15.0 % LAB HEMETOLOGY METHOD 05/12/2024 11:10 AM [facility] Platelets 209 130 - 400 K/mcL LAB HEMETOLOGY METHOD 05/12/2024 11:10 AM [facility] MPV 10.7 7.0 - 11.0 FL LAB HEMETOLOGY METHOD 05/12/2024 11:10 AM [facility] NRBC 0.0 <1.0 % LAB HEMETOLOGY METHOD 05/12/2024 11:10 AM [facility] NRBC Absolute 0.00 <0.10 K/mcL LAB HEMETOLOGY METHOD 05/12/2024 11:10 AM EST [facility] Blood Venous blood specimen / Unknown Venipuncture / Unknown 05/12/2024 8:21 AM EST 05/12/2024 10:56 AM EST us Yared Weaver MD LAB BLOOD ORDERABLES Final Resul t [facility] [address] [place] [address], documented in this encounter Visit Diagnoses Diagnosis Atherosclerotic heart disease of [place] coronary artery without angina pectoris documented in this encounter Care Teams Plant Manager Relationship Specialty Start Date End Date Name, MD Bobby [address] [place], [place] PCP - General Internal Medicine 04/01/18 documented as of this encounter
--- OUTSIDE RECORDS SUMMARY | 2024-07-05 13:31 | XMS_ITS | Encounter Summary ---
Author Organization [email or web address] Address [address] [facility] 7t [place] [address] Care Team Providers Care Mimeograph Operator Name Role Phone Name, Bobby GRADY Primary Care Provider [phone] Inga Magaña PharmD Unavailable [phone] Reason for Visit * Reason Comments Med Change Request Encounter Details Date Type Department Care Team ([facility] st Contact Info) Description 06/09/2023 Refill [facility] MED[facility]INE [address] [place] [address] Name, MD Bobby [address] [place] [address] Social History Tobacco Use Types Packs/Day Years [...] Care Team (Late st Contact Info) Description 07/06/2024 11:00 AM EDT Office Visit [facility] [address] [place] [address] Name, MD Bobby [address] [place] [address] 09/02/2024 1:00 PM EDT Telemedicine [facility] [address] [place] [address] Skye Melton, HODA documented as of this encounter Goals Goal Patient Goal Type Associated Problems Recent Progress Patient-Stated? Author Smoking cessation General No Inga Magaña PharmD documented as of this encounter Visit Diagnoses Not on filedocumented in this encounter Additional Health Concerns Assessment Noted Time PHQ-9 Depression Total Score: 0 03/11/20 22 11:47 AM EST documented as of this encounter Care Teams Mimeograph Operator Relationship Specialty Start Date End Date Name, MD Bobby [address] [place] [address] PCP - General Family Medicine 06/01/15 Inga Magaña, MiltonD [address] [place] [address] Pharmacist Internal Medicine 01/07/23 09/29/23 [place] 05/13/24 documented as of this encounter
--- OUTSIDE RECORDS SUMMARY | 2024-07-05 13:32 | XMS_ITS | Encounter Summary ---
Author Organization [employer] Address [address] [place] [address] 7t [place] [address] Care Team Providers Care Manager Packaging Name Role Phone Name, Bobby GRADY Primary Care Provider Inga Magaña PharmD Unavailable [phone] Encounter Details Date Type Department Care Team (Late st Contact Info) Description 03/05/2022 Telephone [facility] MEDICINE [address] [place] [address] Monisha Linton CNM [address] [place] [address] Social History Tobacco Use Types Packs/Day Years [...] Description 07/06/2024 11:00 AM EDT Office Visit [facility] MEDICINE [address] [place] [address] Name, MD Bobby [address] [place] [address] 09/02/2024 1:00 PM EDT Telemedicine [facility] MEDICINE [address] [place] [address] Skye Melton, RN documented as of this encounter Visit Diagnoses Not on filedocumented in this encounter Care Teams Manager Packaging Relationship Specialty Start Date End Date Name, MD Bobby [address] [place], [place] [phone] PCP - General Family Medicine 06/01/15 Inga Magaña PharmD [address] [place] [address] Pharmacist Internal Medicine 01/07/23 09/29/23 [place] 05/13/24 documented as of this encounter
--- OUTSIDE RECORDS SUMMARY | 2024-07-05 13:32 | XMS_ITS | Encounter Summary ---
Author Organization [employer] Address [address] [place] [address] 7 [place] [address] Care Team Providers Care Construction Economist Name Role Phone Name, Bobby GRADY Primary Care Provider [phone] Inga Magaña PharmD Unavailable [phone] Reason for Visit * Reason Onset Date Comments Prior Authorization 01/21/2023 HumaLOG KWIK PEN 100 UNIT/ML injection Encounter Details Date Type Department Care Team ([facility] st Contact Info) Description 01/21/2023 Telephone [facility] MEDICINE [address] [place], [place] [phone] Name, MD Bobby [address] [place] [address] Prior Authorization (HumaLOG KWIKPEN 100 UNIT/ML injection) [...] Description 07/06/2024 11:00 AM EDT Office Visit [facility] MEDICINE [address] [place] [address] Name, MD Bobby [address] [place] [address] 09/02/2024 1:00 PM EDT Telemedicine [facility] MEDICINE [address] [place] [address] Skye Melton, RN documented as of this encounter Goals Goal Patient Goal Type Associated Problems Recent Progress Patient-Stated? Author Smoking cessation General No Inga Magaña, PharmD documented as of this encounter Visit Diagnoses Not on filedocumented in this encounter Additional Health Concerns Assessment Noted Time PHQ-9 Depression Total Score: 0 03/11/20 22 11:47 AM EST documented as of this encounter Care Teams Construction Economist Relationship Specialty Start Date End Date Name, MD Bobby [address] [place] [address] PCP - General Family Medicine 06/01/15 Inga Magaña PharmD [address] [place] [address] Pharmacist Internal Medicine 01/07/23 09/29/23 [place] 05/13/24 documented as of this encounter
--- OUTSIDE RECORDS SUMMARY | 2024-07-05 13:32 | XMS_ITS | Encounter Summary ---
Author Organization [employer] Address [address] [facility] 7t [place] [address] Care Team Providers Care Mushroom Cutter Name Role Phone Name, Bobby GRADY Primary Care Provider [phone] Reason for Visit * Reason Onset Date Comments Med Refill 06/30/2024 Encounter Details Date Type Department Care Team (Late st Contact Info) Description 06/30/2024 Refill [facility] [address] [place] [address] Name, MD Bobby [address] [place] [address] Chronic low back pain with sciatica, sciatica [...] Telephone Encounter - Cady Myers RN - 06/30/2024 10:09 AM EDT Per review of [facility] 06/30/24. Pt last filled a 28 day supply of Percocet 7.5/325 mg on 06/02/24 and a30 day supply of pregabalin 100 mg on 06/01/24. Refills pended to pcp for review. * Telephone Encounter - Yovani Padron - 06/30/2024 9:35 AM EDT TC from pt requesting medication refill. Medications needing refill : oxyCODONE-acetaminophen (Percocet) 7.5-325 MG tablet pregabalin (Lyrica) 100 MG capsule To be sent to: [facility] [address] [facility] 230 [facility] [address] documented in this encounter Plan of Treatment Upcoming Encounters Date Type Department Care Team (Late st Contact Info) Description 07/06/2024 11:00 AM EDT Office Visit [facility] MEDICINE [address] [place] [address] Name, MD Bobby [address] [place] [address] 09/02/2024 1:00 PM EDT Telemedicine [address] [address] Skye Melton, RN documented as of this [...] documented as of this encounter Care Teams Mushroom Cutter Relationship Specialty Start Date End Date Name, MD Bobby [address] [place] [address] PCP - General Family Medicine 06/01/15 [place] 05/13/24 documented as of this encounter
--- OUTSIDE RECORDS SUMMARY | 2024-07-05 13:32 | XMS_ITS | Encounter Summary ---
Author Organization [employer] Address 75 [facility] 7t [place] [address] Care Team Providers Care Hat Finisher Name Role Phone Name, Bobby GRADY Primary Care Provider [phone] Reason for Visit * Reason Onset Date Comments Hospital Follow-up 05/17/2024 Encounter Details Date Type Department Care Team ([facility] st Contact Info) Description 05/17/2024 Telephone [facility] MEDICINE [address] [place] [address] Name, MD Bobby [address] [place] [address] Hospital Follow-up Social History Tobacco Use Types [...] the past 12 months, has t he [employer], [employer] or [employer] threatened to shut off services in your [...] from pt requesting a HDF appt. Hospital: [facility] transported Date of admission: 04/06/2024 Discharge date: 05/12/2024 Diagnosed: RSV , Influenza A+B , COPD *Send message to [facility] Clinical Care Coordinators documented in this encounter Plan of Treatment Upcoming Encounters Date Type Department Care Team (Late st Contact Info) Description 07/06/2024 11:00 AM EDT Office Visit [facility] MED[facility]INE [address] [place] [address] Name, MD Bobby [address] [place] [address] 09/02/2024 1:00 PM EDT Telemedicine [facility] MED[facility]INE [address] [place] [address] Skye Melton, HODA documented as of this encounter Goals Goal Patient Goal Type Associated Problems Recent Progress Patient-Stated? Author Smoking cessation General No Inga Magaña, PharmD documented as of this encounter Visit Diagnoses Not on filedocumented in this encounter Additional Health Concerns Assessment Noted Time PHQ-9 Depression Total Score: 0 06/19/19 24 10:09 AM EDT documented as of this encounter Care Teams Hat Finisher Relationship Specialty Start Date End Date Name, MD Bobby [address] [place] [address] PCP - General Family Medicine 06/01/15 [place] 05/13/24 documented as of this encounter
--- OUTSIDE RECORDS SUMMARY | 2024-07-05 13:32 | XMS_ITS | Encounter Summary ---
Author Organization [employer] Address [address] [place] [address] 7 [place] [address] Care Team Providers Care Optical Laboratory Technician Name Role Phone Bobby David MD Primary Care Provider [phone] Inga Magaña PharmD Unavailable Reason for Visit * Reason Onset Date Comments Referral 04/23/2022 Encounter Details Date Type Department Care Team (Late st Contact Info) Description 04/23/2022 Telephone [facility] MEDICINE [address] [place] [address] Name, MD Bobby [address] [place] [address] Referral Social History Tobacco Use Types Packs/Day [...] Pt wants referral to see Gastroenterology in [facility], as pt has hx of colon cancer and has been waiting 10 years for colonoscopy. Pt stated June at [facility] has an apptset up for pt on May 13 and needs referral placed before then. Pt verbalized understanding and denied having any further questions or concerns at this time. * Telephone Encounter - Octavio Mg - 04/23/2022 11:46 AM EST Tc from pt requesting an referral to see an gastroenterology at [facility] Please contact pt at [phone] documented in this encounter Plan of Treatment Upcoming Encounters Date Type Department Care Team (Late st Contact Info) Description 07/06/2024 11:00 AM EDT Office Visit [facility] MEDICINE [address] [place] [address] Name, MD Bobby [address] [place] [address] 09/02/2024 1:00 PM EDT Telemedicine [facility] MEDICINE [address] [place] [address] Skye Melton RN documented as of this encounter Visit Diagnoses Diagnosis History of colon polyps- Primary Family history of colon cancer Family history of malignant neoplasm of gastrointestinal tract documented in this encounter Additional Health Concerns Assessment Noted Time PHQ-9 Depression Total Score: 0 03/11/20 22 11:47 AM EST documented as of this encounter Care Teams Optical Laboratory Technician Relationship Specialty Start Date End Date Name, MD Bobby [address] [place] [address] PCP - General Family Medicine 06/01/15 Inga Magaña PharmD [address] [place] [address] Pharmacist Internal Medicine 01/07/23 09/29/23 [place] 05/13/24 documented as of this encounter
--- OUTSIDE RECORDS SUMMARY | 2024-07-05 13:32 | XMS_ITS | Encounter Summary ---
Author Organization [employer] Address [address] [place] [address] 7t [place] [address] Care Team Providers Care Dialysis Biomed Technician Name Role Phone Name, Bobby GRADY Primary Care Provider [phone] Inga Magaña PharmD Unavailable [phone] Reason for Visit * Reason Comments Med Refill Encounter Details Date Type Department Care Team (Late st Contact Info) Description 10/03/[address] [facility] MEDICINE [address] [place] [address] Name, MD Bobby [address] [place] [address] Lumbar radiculopathy Social History Tobacco Use Types [...] 11:00 AM EDT Office Visit [facility] MEDICINE [address] [place] [address] Name, MD Bobby [address] [place] [address] 09/02/2024 1:00 PM EDT Telemedicine [facility] MED[facility]INE [address] [place] [address] Skye Melton, HODA documented as of this encounter Visit Diagnoses Diagnosis Lumbar radiculopathy Thoracic or lumbosacral neuritis or radiculitis, unspecified documented in this encounter Additional Health Concerns Assessment Noted Time PHQ-9 Depression Total Score: 0 03/11/20 11:47 AM EST documented as of this encounter Care Teams Dialysis Biomed Technician Relationship Specialty Start Date End Date Name, MD Bobby [address] [place] [address] PCP - General Family Medicine 06/01/15 Inga Magaña, MiltonD [address] [place] [address] Pharmacist Internal Medicine 01/07/23 09/29/23 [place] 05/13/24 documented as of this encounter
--- OUTSIDE RECORDS SUMMARY | 2024-07-05 13:32 | XMS_ITS | Encounter Summary ---
Author Organization [employer] Address [address] [facility] 7t [place] [address] Care Team Providers Care Geological Survey Field Assistant Name Role Phone Name, Bobby GRADY Primary Care Provider [phone] Inga Magaña PharmD Unavailable [phone] Reason for Visit * Reason Comments Med Refill Encounter Details Date Type Department Care Team ([facility] st Contact Info) Description 04/28/2023 Refill [facility] MEDICINE [address] [place] [address] Name, MD Bobby [address] [place] [address] Social History Tobacco Use Types Packs/Day Years [...] Description 07/06/2024 11:00 AM EDT Office Visit [facility] MEDICINE [address] [place] [address] Name, MD Bobby [address] [place] [address] 09/02/2024 1:00 PM EDT Telemedicine [facility] MEDICINE [address] [place] [address] Skye Melton, HODA documented as of this encounter Goals Goal Patient Goal Type Associated Problems Recent Progress Patient-Stated? Author Smoking cessation General No Inga Magaña PharmD documented as of this encounter Visit Diagnoses Not on filedocumented in this encounter Additional Health Concerns Assessment Noted Time PHQ-9 Depression Total Score: 0 03/11/20 22 11:47 AM EST documented as of this encounter Care Teams Geological Survey Field Assistant Relationship Specialty Start Date End Date Name, MD Bobby [address] [place] [address] PCP - General Family Medicine 06/01/15 Inga Magaña, MiltonD [address] [place] [address] Pharmacist Internal Medicine 01/07/23 09/29/23 [place] 05/13/24 documented as of this encounter
--- OUTSIDE RECORDS SUMMARY | 2024-07-05 13:32 | XMS_ITS | Encounter Summary ---
Author Organization [employer] Address [address] [place] [address] 7t [place] [address] Care Team Providers Care Receiving Weigher Name Role Phone Name, Bobby GRADY Primary Care Provider [phone] Inga Magaña PharmD Unavailable [phone] Reason for Referral * Imaging (Routine) - Closed Specialty Diagnoses / Procedures Referred By Contac t Referred To Contact Diagnoses Other ovarian cyst, right side Procedures US Pelvis Transvaginal Monisha Linton CNM [address] [place] [address] Phone: tel: fax: [facility] MRI and CT Scan [address] [place], [place] Phone: tel: fax: Referral ID Status Reason Start Date Expiration Date Visits Re quested Visits Authorized [id number] Closed 04/01/2022 09/28/2022 1 1 Encounter Details Date Type Department Care Team (Late st Contact Info) Description 04/01/2022 Orders Only [facility] MEDICINE [address] [place] [address] Monisha Linton CNM [address] [place] [address] Other ovarian cyst, right side (Primary Dx) [...] Description 07/06/2024 11:00 AM EDT Office Visit [facility] MEDICINE [address] [place] [address] Name, MD Bobby [address] [place] [address] 09/02/2024 1:00 PM EDT Telemedicine [address] [address] Skye Melton RN Scheduled Orders Name Type [...] documented as of this encounter Care Teams Receiving Weigher Relationship Specialty Start Date End Date Name, MD Bobby [address] [place] [address] PCP - General Family Medicine 06/01/15 Inga Magaña PharmD [address] [place] [address] Pharmacist Internal Medicine 01/07/23 09/29/23 [place] 05/13/24 documented as of this encounter
--- OUTSIDE RECORDS SUMMARY | 2024-07-05 13:32 | XMS_ITS | Clinical Summary ---
Author Organization [employer] Address [address] [place] [address] [address] [place] [address] Care Team Providers Care Sanitor Name Role Phone Name, Bobby [place] Primary Care Provider [phone] Allergies Active Allergy Reactions Criticality Noted Date [...] miscIndications: Type 2 diabetes mellitus without complications ([facility]) Check BG twice daily 100 each 11 [...] mellitus with other specified complication, unspecified whether retirement insulin use ([facility]/HCC) USE DIRECTED FIVE TIMES DAILY 200 each 11 Active fluticasone (Flonase) 50 MCG/ACT nasal spray INSTILL 2 SPRAYS IN EACH NOSTRIL ONCE DAILY 16 g 3 Active celecoxib (CeleBREX) 200 MG capsule TAKE 1 CAPSULE BY MOUTH TWICE DAILY WITH FOOD AND A FULL GLASS OF WATER NEEDED FOR PAIN Active dulaglutide (Trulicity) 1.5 MG/0.5ML solution pen-injectorIndi cations:Type 2 diabetes with complication ([facility]),COPD exacerbation ([facility]) Inject 1.5 mg under the skin 1 (one) time per week. 2 mL Active empagliflozin (Jardiance) 10 MG Take 1 tablet (10 mg) by mouth Once per day. 30 tablet 024 2024 Active insulin glargine (Lantus SoloStar) 100 UNIT/ML penIndications:A therosclerosis of coronary artery of galena heart, unspecified vessel or lesion type, unspecified whether angina present INJECT 35 UNITS SUBCUTANEOUSLY TWICE DAILY IN THE MORNING AND IN THE EVENING 15 mL 5 Active OneTouch Ultra Test test stripIndications :Type 2 diabetes mellitus without complications ([facility]) USE DIRECTED TO TEST BLOOD SUGAR THREE TIMES DAILY 50 strip 5 Active SM Calcium Citrate+Vit D3 Max tablet TAKE 1 TABLET BY MOUTH 2 TIMES DAILY 60 tablet 3 Active ipratropium-albu terol (Duo-Neb) 0.5-2.5 mg/3 mL nebulizer solutionIndicati ons:Chronic obstructive pulmonary disease, unspecified ([facility]/HCC) INHALE 1 AMPULE USING A NEBULIZER FOUR TIMES DAILY 360 mL 3 Active NovoLOG FLEXPEN 100 UNIT/ML pen INJECT 6 TO 10 UNITS SUBCUTANEOUSLY BEFORE MEALS AND SNACKS DIRECTED 15 mL 5 Active allopurinol (Zyloprim) 100 MG tablet Take [...] tablet by mouth Once per day. Active montelukast (Singulair) 10 MG tablet TAKE 1 TABLET BY MOUTH EVERY DAY IN THE EVENING 90 tablet 1 Active Aspirin EC Adult Low Dose 81 MG EC tablet TAKE 1 TABLET BY MOUTH EVERY DAY 90 tablet 1 Active predniSONE (Deltasone) 20 MG tablet 2 tabs po daily for 5 days 10 tablet Active baclofen (Lioresal) 10 MG tabletIndication s:Lumbar radiculopathy Take 1 tablet (10 mg) by mouth every 8 (eight) hours if needed for muscle spasms. 45 tablet 025 2024 Active omeprazole (PriLOSEC) [address] capsuleIndicatio ns:Lumbar radiculopathy TAKE 1 CAPSULE BY MOUTH TWICE DAILY 30 MINUTES BEFORE MEALS 60 capsule Active docusate sodium (Colace) 100 MG capsuleIndicatio ns:Drug-induced constipation TAKE 1 CAPSULE BY MOUTH EVERY DAY AT BEDTIME NEEDED 90 capsule 3 Active oxyCODONE-acetam inophen (Percocet) 7.5-325 MG tabletIndication s:Chronic low back pain with sciatica, sciatica laterality unspecified, unspecified back pain laterality Take 1 tablet by mouth every 6 (six) hours if needed for severe pain for up to 28 days. TAKE 1 TABLET BY MOUTH EVERY 6 HOURS NEEDED FOR SEVERE PAIN 112 tablet 2024 Active pregabalin (Lyrica) 100 MG capsule 1 CAPSULE two TIMES DAILY 60 capsule Active Combivent Respimat 20-100 MCG/ACT inhalerIndicatio ns:Chronic obstructive pulmonary disease, unspecified COPD type (CMS/HCC) INHALE 1 PUFF 4 TIMES A DAY, MAY TAKE ADDITIONAL PUFFS NEEDED. (MAX OF 6 PUFFS PER DAY) 4 g 5 Active Aspirin Adult Low Strength 81 MG EC tablet TAKE 1 TABLET BY MOUTH EVERY DAY 90 tablet 1 024 2024 Discontinued montelukast (Singulair) 10 MG tablet TAKE 1 TABLET BY MOUTH EVERY EVENING 90 tablet 1 024 2024 Discontinued omeprazole (PriLOSEC) [address] capsuleIndicatio ns:Lumbar radiculopathy TAKE 1 CAPSULE BY MOUTH TWICE DAILY 30 MINUTES BEFORE MEALS 60 capsule 024 2024 Discontinued senna (Senokot) 8.6 MG tabletIndication s:Lumbar radiculopathy TAKE 2 TABLETS BY MOUTH EVERY DAY 180 tablet 2 024 2024 Discontinued(T herapy completed) docusate sodium (Colace) 100 MG capsuleIndicatio ns:Drug-induced constipation TAKE 1 CAPSULE BY MOUTH EVERY DAY AT BEDTIME NEEDED 90 capsule 024 2024 Discontinued(R eorder (will not trigger notification to Pharmacy)) Combivent Respimat 20-100 MCG/ACT inhalerIndicatio ns:Chronic obstructive pulmonary disease, unspecified COPD type (CMS/HCC) INHALE 1 PUFF 4 TIMES A DAY, MAY TAKE ADDITIONAL PUFFS NEEDED. (MAX OF 6 PUFFS PER DAY) 4 g 5 024 2024 Discontinued oxyCODONE-acetam inophen (Percocet) 7.5-325 MG tabletIndication s:Chronic low back pain with sciatica, sciatica laterality unspecified, unspecified back pain laterality TAKE 1 TABLET BY MOUTH EVERY 6 HOURS NEEDED FOR SEVERE PAIN 112 tablet 025 2024 Discontinued(R eorder (will not trigger notification to Pharmacy)) methocarbamol (Robaxin) 750 MG tablet TAKE 1 TABLET BY MOUTH EVERY 8 HOURS 120 tablet 1 025 2024 Discontinued(R eorder (will not trigger notification to Pharmacy)) pregabalin (Lyrica) 100 MG capsule 1 CAPSULE two TIMES DAILY 60 capsule 025 2024 Discontinued(R eorder (will not trigger notification to Pharmacy)) methocarbamol (Robaxin) 750 MG tablet Take 1 tablet (750 mg) by mouth every 8 (eight) hours if needed for muscle spasms. 120 tablet 1 025 2024 Discontinued(T herapy completed) ciprofloxacin (Cipro) 750 MG tablet Take 1 tablet (750 mg) by mouth 2 times daily for 5 days. 10 tablet 025 2024 amoxicillin-clav ulanate (Augmentin) 875-125 MG tablet Take 1 tablet by mouth 2 times daily for 7 days. 14 tablet 025 2024 Discontinued(R eorder (will not trigger notification to Pharmacy)) doxycycline (Vibra-Tabs) 100 MG tablet Take 1 tablet (100 mg) by mouth 2 times daily for 7 days. Take with a full glass of water and do not lie down for at least 30 minutes after. 14 tablet 025 2024 Discontinued(R eorder (will not trigger notification to Pharmacy)) fluconazole (Diflucan) 150 MG tablet Take 1 tablet (150 mg) by mouth 1 (one) time for 1 dose. Repeat in 72 hours if symptoms persist. 2 tablet 025 2024 doxycycline (Vibra-Tabs) 100 MG tabletIndication s:Pneumonia of right middle lobe due to infectious organism Take 1 tablet (100 mg) by mouth 2 times daily for 5 days. Take with a full glass of water and do not lie down for at least 30 minutes after. 10 tablet 025 2024 amoxicillin-clav ulanate (Augmentin) 875-125 MG tabletIndication s:Pneumonia of right middle lobe due to infectious organism Take 1 tablet by mouth 2 times daily for 5 days. 10 tablet 025 2024 Active Problems Problem Noted Date Diagnosed Date Cervical radiculitis 06/27/2024 Cubital tunnel syndrome on left 06/27/2024 Left elbow pain 06/27/2024 Numbness and tingling in left hand 06/27/2024 Asthma-COPD overlap syndrome 06/27/2024 Acute on chronic hypoxic respiratory failure Chronic obstructive pulmonary disease 05/01/2024 Allergic rhinitis 05/01/2024 Atherosclerosis of coronary artery without angin a pectoris 04/29/2024 Gout 04/29/2024 Hyperosmolarity syndrome 04/29/2024 Pneumonia due to influenza A virus 04/29/2024 Pneumonia due to respiratory syncytial virus (RS V) 04/29/2024 Type 2 diabetes mellitus 04/29/2024 Disorder of nervous system due to type 2 diabete s mellitus 04/28/2024 Muscle weakness 04/28/2024 Old myocardial infarction 04/28/2024 Unsteadiness on feet 04/28/2024 Acute pain of right shoulder 04/03/2024 Assessment & Plan (04/04/2024 12:54 PM EST): X-ray negative for fracture, suspect mks strain from coughing Reviewed bracing while coughing Constipation 09/30/2023 Family history of colon cancer 09/30/2023 History of colonic polyps 09/30/2023 Encounter for screening for malignant neoplasm o f colon 09/30/2023 CAD in galena artery 09/02/2023 Opioid dependence, daily use 07/27/2023 Smokes tobacco daily 07/27/2023 Nephrolithiasis 07/27/2023 HLD (hyperlipidemia) 07/27/2023 Hypothyroidism 07/27/2023 Cough 06/18/2023 Pre-op chest exam 06/18/2023 Hypothyroidism, postsurgical 06/18/2023 Other chest pain 04/21/2023 H/O total thyroidectomy 02/02/2023 Atelectasis 11/06/2022 CHF (congestive heart failure) 11/06/2022 COVID-19 11/06/2022 Fracture of metatarsal bone 11/06/2022 Hypoxia 11/06/2022 Increased anion gap metabolic acidosis Lesion of bronchus 11/06/2022 Lumbar post-laminectomy syndrome 11/06/2022 Assessment & Plan (06/16/2024 7:32 AM EDT): - Repeat MRI ordered - Follow up/referral pending results - Continues with Percocet 7.5m-325mg QID and Lyrica 100mg BID. - Muscle relaxant: methocarbamol PRN - ED/follow up precautions Lumbar spondylosis 11/06/2022 Microscopic hematuria 11/06/2022 Multinodular goiter 11/06/2022 Muscle spasm of back 11/06/2022 MCKAY (obstructive sleep apnea) 11/06/2022 Pneumonia 11/06/2022 Assessment & Plan (06/27/2024 8:06 PM EDT): Lung exam today better than what is documented from last week Recommend that patient finish course of Augmentin/doxycycline that she started yesterday, for seven days total If she is not resolved at the end of the 7 days, can add 3-5 days F/u with pulmonology as scheduled Smoking cessation encouraged Has VNA M/W/F, continue to monitor lungs ER precautions for shortness of breath, hypoxia Positive blood culture 11/06/2022 Pulmonary nodules 11/06/2022 Right radial head fracture 11/06/2022 Sacroiliac joint dysfunction of left side 2022 Tobacco abuse 11/06/2022 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 Tubular adenoma 11/06/2022 Vitamin D deficiency 11/06/2022 Acute respiratory failure with hypoxia Tubular adenoma of colon 07/18/2022 Cardiomyopathy 04/15/2022 [...] patches COPD (chronic obstructive pulmonary disease) 03/1960 Assessment & Plan (06/16/2024 7:34 AM EDT): - Increased sputum production and wheezing, right lung field with wheezing on exam - Recent hospitalization and Pulm rehab for COPD exacerbation following RSV and influenza infxs starting Mar 2024 - hx of chronic glucocorticoid use through Pulm - Plan: CXR Prednisone 40mg x 5 days Cipro 750mg BID x 5 days Strict follow up precautions Resolved Problems Problem Noted Date Diagnosed Date Resolved Date COPD exacerbation 04/04/2024 06/27/2024 Assessment & Plan (04/04/2024 12:56 PM EST): Pt endorses increased sputum production, increased sob, Neg covid tests at home Chest x-ray neg- in care with pulmonary, Extensive conversation about smoking cessation Will treat with prednisone burst/taper and doxycylcine Hypothyroidism, acquired 02/02/2023 Subclinical hyperthyroidism 01/26/2020 06/19/2023 Encounters Date Type Department Care Team Description 07/04/2024 Telephone [facility] [address] [place] [address] Bobby David MD Durable Medical Equipment 07/03/2024 Refill [facility] [address] [place] [address] Bobby David MD Chronic obstructive pulmonary disease, unspecified COPD type ([facility]) 06/30/2024 Refill [facility] [address], [place] [phone] Bobby David MD Chronic low back pain with sciatica, sciatica laterality unspecified, unspecified back pain laterality 06/29/2024 Telephone [facility] [address] [place] [address] Sherly Pichardo FNP MRI LUMBAR SPINE ORDER 06/24/2024 Telephone [facility] [address] [place] [address] Mildred Eason LPN Prior Authorization 06/23/2024 Telephone [facility] [address] [place] [address] Sherly Pichardo FNP MRI LUMBAR SPINE ORDER 06/22/2024 3:30 PM EDT Office Visit [facility] [address] [place] [address] Basia Herndon MD Pneumonia of right middle lobe due to infectious organism (Primary Dx); Type 2 diabetes mellitus with other specified complication, unspecified whether mangle operator garments insulin use ([facility]); Cough, unspecified type; Drug-induced constipation; Dietary counseling; Exercise counseling; Overweight 06/22/2024 Travel 06/22/2024 Refill [facility] [address] [place] [address] Bobby David MD Lumbar radiculopathy 06/20/2024 Orders Only [facility] [address] [place], [place] [phone] Sherly Pichardo FNP 06/20/2024 Telephone [facility] [address] [place] [address] Sherly Pichardo, [employer]RIMP TRAWLER Results (Lumbar x-ray) 06/17/2024 Orders Only [facility] [address] [place] [address] Sherly Pichardo, [employer]RIMP TRAWLER Lumbar radiculopathy (Primary Dx) 06/16/2024 Telephone [facility] [address] [place] [address] Sherly Pichardo, SHRIMP TRAWLER TC: Visit Follow Up Plan 06/15/2024 9:45 AM EDT Office Visit [address] [address] Sherly Pichardo, SHRIMP TRAWLER Lumbar post-laminectomy syndrome (Primary Dx); Chronic obstructive pulmonary disease, unspecified COPD type (CMS/HCC); Lumbar spondylosis; Urinary incontinence, unspecified type 06/15/[address] [address] Bobby David MD Durable Medical Equipment 06/15/[address] [address] Skye Melton RN [employer] Agreement and BPI Forms 06/15/2024 Travel 06/14/[address] [address] Skye Melton RN Reschedule [employer] Renewal appt 06/17/24 06/13/[address] [address] Bobby David MD ER Follow-up 06/12/2024 Orders Only [facility] External Provider, [facility] 06/06/[address] [address] Bobby David MD 05/31/2024 1:15 PM EST Office Visit [address] [address] Bobby David MD COPD (chronic obstructive pulmonary disease) with acute bronchitis (CMS/HCC) (CMS/HCC) (Primary Dx); Type 2 diabetes with complication (CMS/[facility]); Rash 05/31/2024 Refill [facility] [address] [place] [address] Bobby David MD 05/28/2024 Refill [facility] [address] [place] [address] Bobby David MD 05/23/2024 Refill [facility] [address] [place] [address] Bobby David MD Chronic low back pain with sciatica, sciatica laterality unspecified, unspecified back pain laterality 05/18/2024 Telephone [facility] [address] [place] [address] Bobby David MD FYI 05/17/2024 Patient Outreach [facility] [address] [place] [address] Bobby David MD Transition Of Care (Tcm) (F scheduled. /) 05/17/2024 Telephone [facility] [address] [place] [address] Bobby David MD Hospital Follow-up 05/13/2024 Telephone [facility] [address] [place] [address] Bobby David MD 05/09/2024 Telephone [facility] [address] [place] [phone] Bobby David MD Homecare Delivered (Adult size pull on med) 04/26/2024 Telephone [facility] [address] [place] [address] Manju Walton, PharmD 04/25/2024 Refill [facility] [address] [place] [address] Bobby David MD Chronic low back pain with sciatica, sciatica laterality unspecified, unspecified back pain laterality 04/21/2024 Orders Only [facility] Provider, Generic External Data 04/14/2024 Orders Only [facility] DEPARTMENT Provider, Generic External Data 04/14/2024 Telephone [facility] [address] [place] [address] Bobby David MD Referral 04/14/[address] [address] Name, MD Bobby Durable Medical Equipment 04/12/[address] [phone] Bobby David MD Chart Prep 04/11/[address] [phone] Frankie, MD Bobby Hospital Follow-up 04/07/2024 Orders Only [facility] External Provider, [facility] 04/06/2024 Telephone [facility] [address] [place] [address] Name, MD Bobby Nurse Triage from Last 3 Months Immunizations Name Administration Dates Next Due Influenza Injectable Quadriv alant Preservative Free IIV4 MDCK 01/07/2023,03/06/2019 Influenza injectable quadriv alent IIV4 with preservative 01/18/2018,02/17/2017,12/14/2015 Influenza injectable quadriv alent preservative free 03/11/2022,12/24/2020,12/15/2014 Influenza, High Dose Seasona l, Preservative Free 12/12/2023 Influenza, IIV3, injectable 01/23/2014, 1 Influenza, Split (incl. jean-claude fied surface antigen) 12/20/2012,01/19/2012 Influenza, Unspecified 01/07/2023,12/24/2020 Influenza, seasonal, injecta ble, preservative free 12/10/2023 Moderna Covid-19 Vaccine 12+ 02/26/2021, 02/26/2021,06/20/2020,06/20 Pfizer Covid-19 Vaccine 12+ 01/05/2024, Pfizer Covid-19 Vaccine 12+ Bivalent 03/11/2022 Pneumococcal Conjugate PCV 13 11/07/2022 Pneumococcal Conjugate PCV 20 11/07/2022 Pneumococcal Polysaccharide PPSV23 05/23/2019, TD (adult), 2 Lf tetanus tox oid, preservative free, adsorbed 06/12/2009 Tdap 11/07/2022,06/12/2009 Zoster, Recombinant 01/07/2023,11/07/2022 Zoster, Unspecified 01/07/2023,11/07/2022 Social History Tobacco Use Types Packs/Day [...] Sign Reading Time Taken Comments Blood Pressure 149/89 06/22/2024 3:56 PM EDT Pulse 88 06/22/2024 3:56 PM EDT Temperature 36.1 ??C (96.9 ??F) 06/22/2024 3:56 PM ED T Respiratory Rate 21 06/22/2024 3:56 PM EDT Oxygen Saturation 98% 06/22/2024 3:56 PM EDT Inhaled Oxygen Concentration - - Weight 78 kg (172 lb) 06/22/2024 3:56 PM EDT Height 165.1 cm (5' 5 ) 06/22/2024 3:56 PM EDT Body Mass Index 28.62 06/22/2024 3:56 PM EDT Plan of Treatment Upcoming Encounters Date Type Department Care Team (Late st Contact Info) Description 07/06/2024 11:00 AM EDT Office Visit [facility] [address] [place] [phone] Name, MD Bobby [address] [place] [phone] 09/02/2024 1:00 PM EDT Telemedicine [address] [address] Skye Melton, RN Health Maintenance Due Date Last Done Comments CT Colonography 1959 FIT DNA/Cologuard 1960 FIT 1960 FOBT 1960 HIV Screening 1960 Sigmoidoscopy 1960 Eye Exam 12/30/1969 Hepatitis C Screening 12/30/1977 RSV Patients and Patients Aged 60 years or older (1 - Risk 60-74 years 1-dose series) 2019 Mammogram 04/24/2023 04/24/2021, 0706/2020, 10/06/2019, Additional history exists Cervical Cancer Screening 02/28/2024 HPV/Cotest 02/28/2024 02/27/2021, 03/03/2018 Pap Smear 02/28/2024 02/27/2021, 02/27/2021 Depression Screening 06/18/2024 06/19/2023, 06/19/19 24 SDOH Screening 06/18/2024 06/19/2023 Diabetes: Hemoglobin A1C 09/22/2024 025, 05/31/2024, 02/04/2024, Additional history exists Alcohol/Substance Use Screening 09/29/2024 09/30/2023 Diabetes: Foot Exam 12/09/2024 12/10/2023, 12/10/2023, 12/10/2023, Additional history exists Diabetes: Urine Protein Screening 12/28/2024 12/29/2023, 08/28/2021, 10/30/2020 Lipid Panel 12/28/2024 12/29/2023, 08/28/2021 Tobacco Screening 06/27/2025 06/27/2024 Colonoscopy 07/16/2025 07/16/2022 Colorectal Cancer Screening 07/16/2025 DTaP/Tdap/Td Vaccines (4 - Td or Tdap) 11/07/2032 11/07/2022, 06/12/2009, 06/12/2009 Pneumococcal Vaccine: 50+ Years Completed 11/07/2022, 11/07/2022, 05/23/2019, Additional history exists Zoster Vaccines Completed 01/07/2023, 12/28, 11/07/2022, Additional history exists Influenza Vaccine Completed 12/12/2023, , 01/07/2023, Additional history exists COVID-19 Vaccine Completed 01/05/2024, , 03/11/2022, Additional history exists HIB Vaccines Aged Out No longer eligi ble based on patient's age to complete this topic HPV Vaccines Aged Out No longer eligi ble based on patient's age to complete this topic Hepatitis A Vaccines Aged Out No long er eligible [...] Author Smoking cessation General No Puia, Inga, Lucio Procedures Procedure Name Priority Date/Time Associated Diagnosis Comments POCT INFLUENZA B (ID NOW RAPID MOLECULAR) Routine 06/22/2024 4:41 PM EDT Cough, unspecified type POCT INFLUENZA A (ID NOW RAPID MOLECULAR) Routine 06/22/2024 4:41 PM EDT Cough, unspecified type POCT RAPID COVID ANTIGEN Routine 06/22/2024 4:23 PM EDT Cough, unspecified type POCT GLYCATED HEMOGLOBIN, TOTAL Routine 06/22/2024 3:58 PM EDT Type 2 diabetes mellitus with other specified complication, unspecified whether retirement insulin use (CMS/HCC) POCT GLUCOSE Routine 06/22/2024 3:57 PM EDT Type 2 diabetes mellitus with other specified complication, unspecified whether mangle operator garments insulin use (CMS/HCC) XR CHEST 2 VIEWS Routine 06/20/2024 9:48 AM EDT Chronic obstructive pulmonary disease, unspecified COPD type (CMS/HCC) POCT URINALYSIS DIPSTICK Routine 06/15/2024 11:33 AM EDT Lumbar post-laminectomy syndrome XR LUMBAR SPINE 2-3 VIEWS Routine 06/12/2024 6:34 PM EDT POCT GLYCATED HEMOGLOBIN, TOTAL Routine 05/31/2024 1:19 PM EST Type 2 diabetes with complication (CMS/HCC) POCT GLUCOSE Routine 05/31/2024 1:18 PM EST Type 2 diabetes with complication (CMS/HCC) VENOUS BLOOD GAS Routine 04/21/2024 12:5 8 [...] 1 VIEW Routine 04/07/2024 9:37 AM EST ALBUMIN, RANDOM URINE W/CREATININE Routine 12/29/2023 11:20 AM EDT Type 2 diabetes with complication (CMS/HCC) Atherosclerosis of coronary artery of galena heart, unspecified vessel or lesion type, unspecified whether angina present Pain of toe of left foot LIPID PANEL, STANDARD Routine 12/29/2023 11:17 AM EDT Type 2 diabetes with complication (CMS/HCC) Atherosclerosis of coronary artery of galena heart, unspecified vessel or lesion type, unspecified [...] Recently Relevant to Health Maintenance Results * POCT Rapid Influenza B RYDER ID NOW (06/22/2024 4:41 PM EDT) Influenza B Negative Negative, Indeterminate [facility] QC Media Lot # [id number] [facility] Lot# Expiration Date [facility] Swab 06/22/2024 4:41 PM EDT us Basia Herndon MD POINT OF CARE TEST ENTER/EDIT ORDERABLES Final Result [facility] [address] [place] [phone] * POCT Rapid Influenza A RYDER ID NOW (06/22/2024 4:41 PM EDT) Influenza A Negative Negative, Indeterminate [facility] QC Media Lot # [id number] [facility] Lot# Expiration Date [facility] Swab 06/22/2024 4:41 PM EDT Basia Herndon MD POINT OF CARE TEST ENTER/EDIT ORDERABLES Final Result [facility] [address] [place] [phone] * POCT Rapid Covid-19 BinaxNOW (06/22/2024 4:23 PM EDT) Pathologist [facility] [place] Rapid COVID Ag Negative QC Media Lot # [id number] Lot# Expiration Date Swab 06/22/2024 4:23 PM EDT Basia Herndon MD POINT OF CARE TEST ENTER/EDIT ORDERABLES Final Result * (ABNORMAL) POCT HGB A1C (06/22/2024 3:58 PM EDT) Only the most recent of2 resultswithin the time period is included. Hemoglobin A1C 8.4(A) 4.0 - 6.0 % QC Media Lot # [id number] Lot# Expiration Date Blood 06/22/2024 3:58 PM EDT Basia Herndon MD POINT OF CARE TEST ENTER/EDIT ORDERABLES Final Result * POCT Glucose (06/22/2024 3:57 PM EDT) Only the most recent of2 resultswithin the time period is included. Glucose Blood, POC 196 60 - 200 mg/dL QC Media Lot # [id number] Lot# Expiration Date [id number] Blood Capillary blood specimen / Unknown 06/22/2024 3:57 PM EDT us Basia Herndon MD POINT OF CARE TEST ENTER/EDIT ORDERABLES Final Result * XR Chest 2 Views (06/20/2024 9:48 AM EDT) Anatomical Region Laterality Modality Chest Radiographic Ludivina ging 06/20/2024 9:48 AM EDT Narrative 06/20/2024 10:21 AM EDT ?[facility] ?[address] ?[place] [address] ?XRay Report ? Signed ? Patient: Marita Zapata ?MR#: MM ?? [id number] ? : 1960 ?Acct:[id number] ? Age/Sex: 63 / F ?ADM Date: 06/20/24 ? Loc: HO.HHCX ? Attending Dr: Victro Hugo Thayer MD ? Ordering Physician: Sherly Pichardo ?? Date of Service: 06/20/24 ?? Procedure(s): XR chest 2V ?? Accession Number(s): [id number] ? cc: Sherly Pichardo ? EXAMINATION: ?? XR CHEST ? CLINICAL INFORMATION: ?? COPD ? COMPARISON: ?? April 21, 2024. ? TECHNIQUE: ?? 2 views of the chest were obtained. ? FINDINGS: ?? Linear and patchy opacities in the inferior pulmonary hilum and lower ?? hemithoraces. ?? No pleural effusion or pneumothorax. Cardiomediastinal silhouette size ?? is normal. ?? Mild multilevel thoracolumbar spondylosis. ? XR/XR chest 2V ?? IMPRESSION: ?? Multifocal pneumonia involving mostly the right middle lung lobe. ? Electronically signed by: ??Rubio Kam MD ??06/20/2024 10:18 AM ?? EDT RP ? Dictated By: ?Rubio Garcia MD ? Signed By: ?<Electronically signed by Rubio Joyner MD in OV> ? 06/20/24 1018 ? DD/ 0948 ? TD/TT: 06/20/24 0950 ? Plater Barrel: ? Procedure Note Rogelio Image - 06/20/2024 [facility] [address] [place] [address] XRay Report Signed Patient: Marita Zapata [facility]#: [id number] : 1960Acct:[id number] Age/Sex: 63 / FADM Date: 06/20/24 Loc: [facility] Attending Dr: Victor Hugo Thayer MD Ordering Physician: Sherly Pichardo Date of Service: 06/20/24 Procedure(s): XR chest 2V Accession Number(s): [id number] cc: Sherly Pichardo EXAMINATION: XR CHEST CLINICAL INFORMATION: COPD COMPARISON: April 21, 2024. TECHNIQUE: 2 views of the chest were obtained. FINDINGS: Linear and patchy opacities in the inferior pulmonary hilum and lower hemithoraces. No pleural effusion or pneumothorax. Cardiomediastinal silhouette size is normal. Mild multilevel thoracolumbar spondylosis. XR/XR chest 2V IMPRESSION: Multifocal pneumonia involving mostly the right middle lung lobe. Electronically signed by: Rubio Kam MD 06/20/2024 10:18 AM EDT Dictated By: Rubio Garcia MD Signed By: <Electronically signed by Rubio Joyner MDin OV> 06/20/24 1018 DD/ 0948 TD/TT: 06/20/24 0950 Plater Barrel: Sherly CONNOR IMG XR PROCEDURES Final Result * POCT Urinalysis (06/15/2024 11:33 AM EDT) Color, UA Yellow Clarity, UA Clear Glucose, UA 2+ 125++ Bilirubin, UA Negative Ketones, UA Negative Spec Grav, UA 1.020 Blood, UA Negative Negative, None Detected pH, UA 5.5 Protein, UA Negative Urobilinogen, UA 0.2 Leukocytes, UA Negative Negative, Rare, Trace Nitrite, UA Negative Negative, None Detected Appearance, UA clear QC Media Lot # [id number] Lot# Expiration Date [id number] Urine 06/15/2024 11:3 3 AM EDT us Sherly Pichardo SHRIMP TRAWLER POINT OF CARE TEST ENTER/EDIT ORDERABLES Final Result * XR Lumbar Spine 2-3 Views (06/12/2024 6:34 PM EDT) Anatomical Region Laterality Modality Spine, L-spine Radiographic Ludivina ging 06/12/2024 6:34 PM EDT Narrative 06/12/2024 6:36 PM EDT ? [facility] ?[address] ?[place] [address] ?XRay Report ? Signed ? Patient: Ashleybenson WashingtonMarita sharma ?MR#: MM ?? [id number] ? : 1960 ?Acct:[id number] ? Age/Sex: 63 / F ?ADM Date: 06/12/24 ? Loc: HO.ED ? Attending Dr: ? Ordering Physician: Catalina Kelly ?? Date of Service: 06/12/24 ?? Procedure(s): XR lumbar spine 2-3V ?? Accession Number(s): [id number] ? cc: Name,Bobby GRADY; Catalina Kelly ? CLINICAL HISTORY: severe lower back pain ? 3 views lumbar spine ? Comparison: MR/[place] - MR LUMBAR SPINE WO CON - 03/12/20 10:51 EST ? Findings: ?? Alignment is within normal limits. ?? Questionable irregularity along the anterior aspect of the superior ?? endplate of L3. ?? There is severe disc space narrowing at L5-S1. ?? There is prominent facet hypertrophy within the lower lumbar spine. ? IMPRESSION: ?? There are moderately severe degenerative changes most pronounced at L5-S1. ?? There is questionable irregularity along the anterior superior endplate of ?? L3. If there has been recent trauma, a mild compression deformity is ?? possible although this may also be degenerative in nature. This was not ?? present on an MRI from 2019 but is ultimately age indeterminate. ? This document has been electronically signed by: Montez Andre MD on ?? 06/12/2024 18:34:24 ? Dictated By: ?Montez Andre MD ? Signed By: ?<Electronically signed by Montez Andre MD in OV> ? 06/12/24 1835 ? DD/ 1834 ? TD/TT: 06/12/24 1834 ? Plater Barrel: ? Procedure Note Dongloter, Image - 06/12/[address] [address] XRay Report Signed Patient: Marita Zapata MMR#: [id number] : 1960Acct:[id number] Age/Sex: 63 / FADM Date: 06/12/24 Loc: HO.ED Attending Dr: Ordering Physician: Catalina Kelly Date of Service: 06/12/24 Procedure(s): XR lumbar spine 2-3V Accession Number(s): [id number] cc: Name,Bobby GRADY; Catalina Kelly CLINICAL HISTORY: severe lower back pain 3 views lumbar spine Comparison: MR/[place] - MR LUMBAR SPINE WO CON - 03/12/20 10:51 EST Findings: Alignment is within normal limits. Questionable irregularity along the anterior aspect of the superior endplate of L3. There is severe disc space narrowing at L5-S1. There is prominent facet hypertrophy within the lower lumbar spine. IMPRESSION: There are moderately severe degenerative changes most pronounced at L5-S1. There is questionable irregularity along the anterior superior endplate of L3. If there has been recent trauma, a mild compression deformity is possible although this may also be degenerative in nature. This was not present on an MRI from 2019 but is ultimately age indeterminate. This document has been electronically signed by: Montez Andre MD on 06/12/2024 18:34:24 Dictated By: Montez Andre MD Signed By: <Electronically signed by Montez Andre MD in OV> 06/12/241834 DD/ 33 TD/TT: 06/12/241833 Plater Barrel: [facility] External Provider IMG XR PROCEDURES Final Result * (ABNORMAL) VENOUS BLOOD GAS (04/21/2024 12:58 PM EST) Only the most recent of3 resultswithin the time period is included. VBG pH 7.47(H) 7.32 - 7.43 [facility] Comment:METER #: [id number] additional_comment: Cb paradim VBG PCO2 42 mmHg [facility] Comment:METER #: [id number] additional_comment: Cb paradim VBG PO2 45 mmHg [facility] Comment:METER #: [id number] additional_comment: Cb paradim VBG Base Excess 7.4 mmol/L [facility] Comment:METER #: [id number] additional_comment: Cb paradim VBG HCO3 31(H) 22 - 26 mmol/L [facility] Comment:METER #: [id number] additional_comment: Cb paradim O2 Sat, Maynor 70.0 % [facility] Comment:METER #: [id number] additional_comment: Cb paradim 04/21/2024 12:5 8 PM EST 04/21/2024 1:02 PM EST us Generic External Data Provider LAB BLOOD ORDERAB LES Final Result Performing Organization Address City/State/[facility] Co de Phone Number [facility] [address] [place] [phone] * XR Chest 1 View (04/21/2024 11:56 AM EST) Only the most recent of3 resultswithin the time period is included. Anatomical Region Laterality Modality Chest Radiographic Ludivina ging 04/21/2024 11:5 6 AM EST Narrative 04/21/2024 1:29 PM EST ? [facility] ?[address] ?[place] [address] ?XRay Report ? Signed ? Patient: Marita Zapata ?MR#: MM ?? [id number] ? : 1960 ?Acct:[id number] ? Age/Sex: 63 / F ?ADM Date: 01/23/25 ? Loc: HO.ED ? Attending Dr: ? Ordering Physician: Maritza Pineda ?? Date of Service: 04/21/24 ?? Procedure(s): XR chest 1V ?? Accession Number(s): [id number] ? cc: Maritza Pineda; Name,Bobby GRADY ? [...] DD/ 1156 ? TD/TT: 04/21/24 1311 ? Plater Barrel: ? Procedure Note Dongloter, Image - 04/21/2024 [place] [address] XRay Report Signed Patient: Marita Zapata MMR#: MM [id number] : 1960Acct:[id number] Age/Sex: 63 / FADM Date: 04/21/24 Loc: HO.ED Attending Dr: Ordering Physician: Maritza Pineda Date of Service: 04/21/24 Procedure(s): XR chest 1V Accession Number(s): [id number] cc: Maritza Pineda; Name,Bobby GRADY EXAMINATION: XR [...] 04/21/24 1326 DD/ 1156 TD/TT: 04/21/24 1311 Plater Barrel: [facility] External Provider IMG XR PROCEDURES Final Result * High Sensitivity Troponin I (04/14/2024 6:34 PM EST) Only the most recent of2 resultswithin the time period is included. [facility] TROPONIN I HIGH SENSITIVITY 8.5 <3.5 - 17.0 ng/L [facility] Comment:The Ryder high sens itivity Troponin-I results should beused in conjunction with other diagnostic information suchas ECG, clinical observations and information, and patientsymptoms to aid in the diagnosis of MO. 04/14/2024 6:34 PM EST 04/14/2024 6:44 PM EST Generic External Data Provider LAB BLOOD ORDERAB LES Final Result [facility] [address] [place] [phone] * (ABNORMAL) SARS-CoV-2 RNA, Influenza A/B, and RSV RNA, Ql NAAT (04/14/2024 6:34 PM EST) Only the most recent of2 resultswithin the time period is included. Pathologist [facility] Influenza A PCR POSITIVE(A) Negative [facility] Influenza B PCR NEGATIVE Negative [facility] Resp Syncy Virus RNA Qual PCR POSITIVE(A) Negative [facility] SARS COV2 PCR NEGATIVE Negative [...] use by authorized laboratories.Testing performed on the [employer] GeneXpert utilizingreal-time RT-PCR.All SARS CoV2 and positive influenza A/B results arereported to [facility]. 04/14/2024 6:34 PM EST 04/14/2024 6:44 PM EST us Generic External Data Provider LAB MICROBIOLOGY - GENERAL ORDERABLES Final Result [facility] [address] [place] [phone] * (ABNORMAL) CBC auto differential (04/14/2024 6:34 PM EST) Only the most recent of2 resultswithin the time period is included. White Blood Count 20.6(H) 4.8 - 10.8 X10*3/uL [facility] Red Blood Count 6.18(H) 4.20 - 5.50 X10*6/uL [facility] Hemoglobin 17.6(H) 12.0 - 16.0 g/dl [facility] Hematocrit 53.7(H) 37.0 - 47.0 % [facility] Mean Corpuscular Volume 86.9 80.0 - 98.0 fL [facility] Mean Corpuscular Hemoglobin 28.5 27.0 - 33.0 pg [facility] Mean Corpuscular HGB Conc 32.8 31.0 - 35.0 g/dl [facility] Red Cell Distribution Width 14.7 11.0 - 16.0 % [facility] Platelet Count 317 160 - 400 X10*3/uL [facility] Mean Platelet Volume 10.6 9.4 - 12.3 fL [facility] Neutrophils Percent Auto 80.4(H) 45 - 73 % [facility] Imm Gran Pct Auto 0.6(H) 0.0 - 0.4 % [facility] Lymphocytes Percent Auto 14.2(L) 20 - 40 % [facility] Monocytes Percent Auto 4.6 2 - 11 % [facility] Eosinophils Percent Auto 0.0 0 - 4 % [facility] Basophils Percent Auto 0.2 0 - 2 % [facility] NRBC Pct Auto 0.0 0.0 - 0.2 /100WBC [facility] Neutrophils Absolute Auto 16.5(H) 2.0 - 8.3 x10*3/uL [facility] Imm Gran Abs Auto 0.13(H) 0.00 - 0.03 X10*3/uL [facility] Lymphocytes Absolute Auto 2.9 1.2 - 4.9 X10*3/uL [facility] Monocytes Absolute Auto 0.9 0.1 - 1.2 X10*3/uL [facility] Eosinophils Absolute Auto 0.0 0.0 - 0.4 X10*3/uL [facility] Basophils Absolute Auto 0.0 0.0 - 0.2 X10*3/uL [facility] NRBC Abs Auto 0.000 0.0 - 0.012 X10*3/uL [facility] 04/14/2024 6:34 PM EST 04/14/2024 6:44 PM EST us Generic External Data Provider LAB BLOOD ORDERAB LES Final Result [facility] [address] [place] [phone] * B Type Natriuretic Peptide (BNP) (04/14/2024 6:34 PM EST) Only the most recent of2 resultswithin the time period is included. B Type Natriuretic Peptide 48 <100 pg/mL [facility] Comment:For those patients w ho are being treated with Natrecor(nesiritide, recombinant BNP), BNP testing should beperformed at least two hours post treatment in order toensure that only endogenous levels of BNP are detected. 04/14/2024 6:34 PM EST 04/14/2024 6:49 PM EST Generic External Data Provider LAB BLOOD ORDERAB LES Final Result Performing Organization Address [facility] Co de Phone Number [facility] [address] [place] [phone] * (ABNORMAL) Magnesium (04/14/2024 6:34 PM EST) Only the most recent of2 resultswithin the time period is included. Magnesium 3.2(H) 1.6 - 2.6 mg/dL [facility] 04/14/2024 6:34 PM EST 04/14/2024 6:44 PM EST Generic External Data Provider LAB BLOOD ORDERAB LES Final Result Performing Organization Address [facility] Phone Number [facility] [address] [place] [phone] * Lactic Acid (04/14/2024 6:34 PM EST) Lactic Acid 1.7 0.5 - 2.0 mmol/L [facility] 04/14/2024 6:34 PM EST 04/14/2024 6:44 PM EST Generic External Data Provider LAB BLOOD ORDERAB LES Final Result Performing Organization Address [facility] de Phone Number [facility] [address] [place] [phone] * (ABNORMAL) Basic Metabolic Panel (04/14/2024 6:34 PM EST) Only the most recent of2 resultswithin the time period is included. Sodium 147(H) 135 - 145 mmol/L [facility] Potassium 3.9 3.3 - 5.1 mmol/L [facility] Chloride 108 96 - 108 mmol/L [facility] Carbon Dioxide 28 22 - 29 mmol/L [facility] Anion Gap 15 12 - 20 [facility] Urea Nitrogen (BUN) 22(H) 9 - 16 mg/dL [facility] Creatinine, Serum 0.81 0.5 - 1.4 mg/dL [facility] Creatinine Clr Calc Pharmacy 72.0 [facility] Comment:Provided height and weight: 165.1 cm,77.111 kg.eGFR (calculated from the MDRD study equation) and eCrCl(calculated from the Cockcroft-Gault equation) are based ondifferent parameters and may not yield comparable results.If eCrCl result is absurd, please check patient'sheight/weight. Estimated Glomerular Filt Rate >60 [facility] Comment:Chronic Kidney Disea se: Estimated GFR < 60 mL/min/1.91n1Qjaahn Kidney Disease: Estimated GFR < 15 mL/min/1.73m2 Glucose 144(H) 60 - 115 mg/dL [facility] Calcium 8.4 8.4 - 10.2 mg/dL [facility] 04/14/2024 6:34 PM EST 04/14/2024 6:44 PM EST us Generic External Data Provider LAB BLOOD ORDERAB LES Final Result [facility] [address] [place] [phone] * Prothrombin Time-INR (04/07/2024 2:12 PM EST) Prothrombin Time 11.1 10.9 - 12.4 SEC [facility] INTERNATIONAL NORM RATIO 1.0 0.9 - 1.1 [facility] Comment:INTERNATIONAL NORMAL IZED RATIO (INR) [...] PM EST 04/07/2024 2:16 PM EST Narrative [facility] - 04/07/2024 2:30 PM EST SPECIMEN HEMOLYZED Generic External Data Provider LAB BLOOD ORDERAB LES Final Result Performing Organization Address [facility] Co de Phone Number [facility] [address] [place] [phone] * (ABNORMAL) C-reactive Protein (04/07/2024 2:12 PM EST) C Reactive Protein 0.85(H) < or = 0.50 mg/dL [facility] 04/07/2024 2:12 PM EST 04/07/2024 2:16 PM EST Narrative [facility] - 04/07/2024 2:41 PM EST SPECIMEN HEMOLYZED Generic External Data Provider LAB BLOOD ORDERAB LES Final Result Performing Organization Address [facility] Co de Phone Number [facility] [address] [place] [phone] * (ABNORMAL) Hepatic Function Panel (04/07/2024 2:12 PM EST) Bilirubin, Total 0.6 0.0 - 1.0 mg/dL [facility] Bilirubin, Direct 0.2 0.0 - 0.5 mg/dL [facility] Aspartate Amino Transferase 38(H) 5 - 31 U/L [facility] Alanine Aminotransferase 34(H) 0 - 31 U/L [facility] Total Protein 6.6 6.5 - 8.0 g/dL [facility] Albumin Level 3.7 3.5 - 5.0 g/dL [facility] Alkaline Phosphatase 67 39 - 117 U/L [facility] 04/07/2024 2:12 PM EST 04/07/2024 2:16 PM EST Narrative [facility] - 04/07/2024 2:41 PM EST SPECIMEN HEMOLYZED us Generic External Data Provider LAB BLOOD ORDERAB LES Final Result Performing Organization Address [facility] de Phone Number [facility] [address] [place] [phone] * (ABNORMAL) Albumin, Random Urine W/Creatinine (12/29/2023 11:20 AM EDT) Creatinine, Urine 157.96 mg/dL [facility] Microalbumin Urine 47.0 mg/L [facility] Microalbum Creatinine Ratio Ur 29.7(H) <30 ug/mg cr [facility] Comment:Albumin/Creatinine R atio Reference Ranges: Normal: < 30 ug/mg creatinine Microalbuminuria: 30 - 300 ug/mg creatinineClinical Albuminuria: > 300 ug/mg creatinine Urine (Urine, Random) 12/29/2023 11:20 AM EDT 12/29/2023 1:01 PM EDT us Bobby David MD LAB URINE ORDERABLES Final Resul t Performing Organization Address [facility] Phone Number [facility] [address] [place] [phone] * (ABNORMAL) Lipid Panel, Standard (12/29/2023 11:17 AM EDT) Triglycerides 172(H) <150 mg/dL [facility] Comment:Desirable Triglyceri de: less than 150 mg/dLBorderline High Triglyceride 150-199 mg/dLHigh Triglyceride: 200-499 mg/dLVery High Triglyceride: greater than or equal to 5OO mg/dL Cholesterol 140 <200 mg/dL [facility] Comment:Desirable Cholestero l: less than 200 mg/dLBorderline High Cholesterol: 200-239 mg/dLHigh Cholesterol: greater than 239 mg/dL LDL Cholesterol Calculated 61 <100 mg/dL [facility] Comment:Desirable LDL: less than 100 mg/dLNear Optimal/Above Optimal LDL: 110- 129 mg/dLBorderline High LDL: 130-159 mg/dLHigh LDL: 160-189 mg/dLVery High LDL: greater than or equal to 190 mg/dL HDL Cholesterol 45 >40 mg/dL [facility] Comment:Desirable HDL: great er than 40 mg/dL Note: This HDL assay may give artificially low results in patients with liver disease. Blood Venous blood specimen / Unknown 12/29/2023 11:17 AM EDT 12/29/2023 1:03 PM EDT us Bobby David MD LAB BLOOD ORDERABLES Final Resul t [facility] [address] [place] [phone] * (ABNORMAL) Colonoscopy (07/16/2022) Colonoscopy Abnormal( A) Normal Comment:repeat in 3-5 yrs Historical Provider HEALTH MAINTENANCE Final Result * Mammography Report 1 (04/24/2021 10:00 AM EST) Anatomical Region Laterality Modality Breast Bilateral Mammography 04/24/2021 10:0 0 AM EST Narrative 04/24/2021 4:52 PM EST Refer to the Notes tab for result details [facility] Procedure: Mammography Report 1 Procedure Note Provider, MD Diana - 06/22/2022 Refer to the Notes tab for result details [facility] Procedure: Mammography Report 1 us Bobby David MD IMG BI PROCEDURES Final Result * Pap Smear (02/27/2021 10:30 AM EST) Pap smear Perfomed Historical Provider HEALTH MAINTENANCE [...] has been evaluated with computer assisted technology. [facility] Dog Walker: SEE COMMENT [facility] Comment: CULP, CT(ASCP) CT screening location: [address] ??[address] HPV nRNA E6/E7 Not Detected Not Detected [facility] Comment: Methodology: Material Movers-Mediated Amplification This assay detects E6/E7 viral messenger RNA (mRNA) from 14 high-risk HPV types (16,18,31,33,35,39,45,51,52,56,58,59,66,68). ? The analytical performance characteristics of this assay have been determined by [employer]. The modifications have not been cleared or approved by the FDA. This assay has been validated pursuant to the CLIA regulations and is used for clinical purposes. ?? For additional information, please refer to http://education.[employer]ex[employer] Dx/faq/DNS890j5 (This link if provided for information/ educational purposes only.) Interpretation/Re sult: Negative for intraepithelial lesion or malignancy. [facility] LMP: NONE GIVEN [facility] Prev. BX: HX [facility] Prev. PAP: 02/2018 [facility] SOURCE: None given [facility] Statement Of Adequacy: SEE COMMENT [facility] Comment: Satisfactory for evaluation. Endocervical/transformation zone component present. 02/27/2021 10:2 4 AM EST us Monisha MAZARIEGOS LAB PATHOLOGY ORDERABLES Final Result [facility] [address] [place] [address], [place] from Last 3 Months or Most Recently Relevant to Health Maintenance Insurance Care Teams Sanitor Relationship Specialty Start Date End Date Name, MD Bobby [address] [place] [address] PCP - General Family Medicine 06/01/15 Eloina 05/13/24
--- OUTSIDE RECORDS SUMMARY | 2024-07-05 13:32 | XMS_ITS | Encounter Summary ---
Author Organization [employer] Address [address] [place] [address] [address] [place] [address] Care Team Providers Care Automotive Parts Coordinator Name Role Phone Name, Bobby GRADY Primary Care Provider [phone] Inga Magaña PharmD Unavailable Reason for Visit * Reason Comments Med Refill Encounter Details Date Type Department Care Team (Late st Contact Info) Description 05/15/2022 Refill [facility] [address] [place] [address] Name, MD Bobby [address] [place] [address] Seasonal allergic rhinitis, unspecified trigger (Primary Dx) [...] Description 07/06/2024 11:00 AM EDT Office Visit [facility] [place] [address] Name, [place] [address] 09/02/2024 1:00 PM EDT Telemedicine [facility] [place] [address] Skye Melton, HODA documented as of this encounter Visit Diagnoses Diagnosis Seasonal allergic rhinitis, unspecified trigger- Primary documented in this encounter Additional Health Concerns Assessment Noted Time PHQ-9 Depression Total Score: 0 03/11/20 11:47 AM EST documented as of this encounter Care Teams Automotive Parts Coordinator Relationship Specialty Start Date End Date Name, [place] [address] PCP - General Family Medicine 06/01/15 Inga Magaña PharmD [address] [place] [phone] Pharmacist Internal Medicine 01/07/23 09/29/23 Eloina 05/13/24 documented as of this encounter
--- OUTSIDE RECORDS SUMMARY | 2024-07-05 13:32 | XMS_ITS | Encounter Summary ---
Author Organization [employer] Address [address] [place] [address] [address] [place] [address] Care Team Providers Care Oil Well Drilling Manager Name Role Phone Name, Bobby GRADY Primary Care Provider [phone] Inga Magaña PharmD Unavailable [phone] Reason for Visit * Reason Comments Med Refill Encounter Details Date Type Department Care Team ([facility] Contact Info) Description 11/18/2022 Refill [facility] [address] [place] [address] Sherly Pichardo, GEETA [address] [place] [address] Type 2 diabetes mellitus without complications (CMS/FORMERLY [facility]) Social History Tobacco Use Types Packs/Day Years [...] Upcoming Encounters Date Type Department Care Team ([facility] Contact Info) Description 07/06/2024 11:00 AM EDT Office Visit [facility] [address] [place] [address] Name, MD Bobby [address] [facility] [place] [address] 09/02/2024 1:00 PM EDT Telemedicine [facility] [address] [facility] [place] [address] Skye Melton, RN documented as of this encounter Visit Diagnoses Diagnosis Type 2 diabetes mellitus without complications (CMS/HCC) documented in this encounter Additional Health Concerns Assessment Noted Time PHQ-9 Depression Total Score: 0 03/11/20 22 11:47 AM EST documented as of this encounter Care Teams Oil Well Drilling Manager Relationship Specialty Start Date End Date Name, MD Bobby [facility] [place] [address] PCP - General Family Medicine 06/01/15 Inga Magaña PharmD [facility] [place] [address] Pharmacist Internal Medicine 01/07/23 09/29/23 Eloina 05/13/24 documented as of this encounter
--- OUTSIDE RECORDS SUMMARY | 2024-07-05 13:32 | XMS_ITS | Encounter Summary ---
Author Organization [employer] Address [address] [place] [address] 7t [place] [address] Care Team Providers Care Cook Pie Name Role Phone Name, Bobby GRADY Primary Care Provider [phone] Inga Magaña PharmD Unavailable [phone] Reason for Visit * Reason Comments Med Refill Encounter Details Date Type Department Care Team (Late Contact Info) Description 11/18/2022 Refill [facility] [address] [place] [address] Name, MD Bobby [address] [place] [address] Type 2 diabetes mellitus without complications (CMS/HCC) [...] Department Care Team (Late Contact Info) Description 07/06/2024 11:00 AM EDT Office Visit [facility] [address] [place] [address] Name, MD Bobby [address] [place] [address] 09/02/2024 1:00 PM EDT Telemedicine [facility] [address] [facility] [place] [address] Skye Melton, HODA documented as of this encounter Visit Diagnoses Diagnosis Type 2 diabetes mellitus without complications (CMS/HCC) documented in this encounter Additional Health Concerns Assessment Noted Time PHQ-9 Depression Total Score: 0 03/11/20 22 11:47 AM EST documented as of this encounter Care Teams Cook Pie Relationship Specialty Start Date End Date Name, MD Bobby Lamont [facility] [place] [address] PCP - General Family Medicine 06/01/15 Inga Magaña PharmD [address] [place] [phone] Pharmacist Internal Medicine 01/07/23 09/29/23 Eloina 05/13/24 documented as of this encounter
--- OUTSIDE RECORDS SUMMARY | 2024-07-05 13:32 | XMS_ITS | Encounter Summary ---
Author Organization [employer] Address [address] [place] [address] 7t [place] [address] Care Team Providers Care Shaving Machine Operator Name Role Phone NameBobby MD Primary Care Provider [phone] Inga Magaña PharmD Unavailable Encounter Details Date Type Department Care Team (Late st Contact Info) Description 09/01/2022 Abstract [facility] [address] [place] [phone] Bobby David MD [address] [place] [address] Social History Tobacco Use Types Packs/Day Years [...] Description 07/06/2024 11:00 AM EDT Office Visit [facility] [address] [place] [address] [phone] Bobby David MD [address] [place] [address] [phone] 09/02/2024 1:00 PM EDT Telemedicine [facility] [address] [place] [address] Skye Melton, RN documented as of this encounter Visit Diagnoses Not on filedocumented in this encounter Additional Health Concerns Assessment Noted Time PHQ-9 Depression Total Score: 0 03/11/20 11:47 AM EST documented as of this encounter Care Teams Shaving Machine Operator Relationship Specialty Start Date End Date Name, MD Bobby [address] [place] [phone] PCP - General Family Medicine 06/01/15 Inga Magaña PharmD [address] [place] [address] Pharmacist Internal Medicine 01/07/23 09/29/23 Eloina 05/13/24 documented as of this encounter
--- OUTSIDE RECORDS SUMMARY | 2024-07-05 13:32 | XMS_ITS | Encounter Summary ---
Author Organization [employer] Address [address] [facility] 7t [place] [address] Care Team Providers Care Tv Technician Name Role Phone Name, Bobby GRADY Primary Care Provider [phone] Inga Magaña PharmD Unavailable [phone] Reason for Visit * Reason Onset Date Comments Med Refill 01/20/2023 Encounter Details Date Type Department Care Team ([facility] st Contact Info) Description 01/20/2023 Telephone [facility] [address] [place] [address] Name, MD Bobby [address] [place] [address] Med Refill Social History Tobacco Use Types [...] Description 07/06/2024 11:00 AM EDT Office Visit [facility] [address] [place] [address] Name, MD Bobby [address] [place] [address] 09/02/2024 1:00 PM EDT Telemedicine [facility] [address] [place] [address] Skye Melton, HOAD documented as of this encounter Goals Goal Patient Goal Type Associated Problems Recent Progress Patient-Stated? Author Smoking cessation General No Inga Magaña, PharmD documented as of this encounter Visit Diagnoses Not on filedocumented in this encounter Additional Health Concerns Assessment Noted Time PHQ-9 Depression Total Score: 0 03/11/20 22 11:47 AM EST documented as of this encounter Care Teams Tv Technician Relationship Specialty Start Date End Date Name, MD Bobby [address] [place] [address] PCP - General Family Medicine 06/01/15 Inga Magaña, Lucio [address] [place] [address] Pharmacist Internal Medicine 01/07/23 09/29/23 Eloina 05/13/24 documented as of this encounter
--- OUTSIDE RECORDS SUMMARY | 2024-07-05 13:32 | XMS_ITS | Clinical Summary ---
Author Organization [address] [facility] Address [address] [place] [address] Phone Care Team Providers Care Acute Dialysis Nurse Name Role Phone Name, Bobby GRADY Primary Care Provider [phone] Encounters Date Type Department Care Team Description 05/11/2024 Lab Requisition [facility] Lab [address] [place] [phone] Yared Weaver MD Atherosclerotic heart disease of [place] coronary artery without angina pectoris 05/08/2024 Lab Requisition [facility] Lab [address] [place] [phone] Yared Weaver MD Hypothyroidism, unspecified 05/04/2024 Lab Requisition [facility] Lab [address] [place] [phone] Yared Weaver MD Atherosclerotic heart disease of [place] coronary artery without angina pectoris 04/29/2024 Lab Requisition [facility] Lab [address] [place] [phone] Yared Weaver MD Atherosclerotic heart disease of [place] coronary artery without angina pectoris from Last 3 Months Surgical History Surgery Date Site/Laterality Comments CHOLECYSTECTOMY PROCEDURE: SD CHOLECYSTECTOMY OTHER SURGICAL HISTORY PROCEDURE: HISTORY OTHER; COMMENT: Cardiac stent KIDNEY STONE SURGERY PROCEDURE: SD NEPHROLITHOTOMY REMOVAL CALCULUS BREAST LUMPECTOMY Right PROCEDURE: HISTORICAL BREAST LUMPECTOMY; COMMENT: benign Medical History Medical History Date Comments Coronary atherosclerosis of unspecified type of vessel, [place] or graft 07/07/2011 DX:Coronary atherosclerosis of unspecified type of vessel, [place] or graft Hypertension 07/07/2011 DX:Hypertension Historical Medical DX 07/07/2011 DX:Hyperli pidemia LDL goal < 70 DM2 (diabetes mellitus, type 2) ([facility] 07/07/2011 DX:DM2 (diabetes mellitus, t ype 2) (HCC) Tobacco abuse 07/07/2011 DX:Tobacco abuse Allergy-induced asthma 07/07/2011 DX:Allerg y-induced asthma Family History Medical History Relation Name Comments Breast cancer Aunt 1 maternal aunt, at 60 Breast cancer Aunt 2 paternal aunt, at 60 Other: soda dialyzer ca Aunt 2 Colon cancer Brother at [...] 12/30/1969 Diabetes: Annual Retina Eye Exam 12/30/1969 Cervical Cancer Screening: Pap Smear 12/30/1980 RSV Immunization Adult Patients (1 - Risk 60-74 years 1-dose series) [...] age to complete this topic Meningococcal B Vaccine Aged Out No l onger eligible based on patient's age to complete this topic RSV Immunization Patients Under 20 months Aged Out No longer eligible based on patient's age to complete this topic Varicella Vaccines Aged Out No longer eligible based on patient's age to complete this topic Procedures Procedure Name Priority Date/Time Associated Diagnosis Comments BASIC METABOLIC PANEL Routine 05/12/2024 8:21 AM EST Atherosclerotic heart disease of [place] coronary artery without angina pectoris COMPLETE BLOOD COUNT Routine 05/12/2024 8:21 AM EST Atherosclerotic heart disease of [place] coronary artery without angina pectoris PREALBUMIN Routine 05/09/2024 5:33 AM EST Hypothyroidism, unspecified BASIC METABOLIC PANEL Routine 05/05/2024 5:05 AM EST Atherosclerotic heart disease of [place] coronary artery without angina pectoris COMPLETE BLOOD COUNT Routine 05/05/2024 5:05 AM EST Atherosclerotic heart disease of [place] coronary artery without angina pectoris BASIC METABOLIC PANEL Routine 04/29/2024 5:10 AM EST Atherosclerotic heart disease of [place] coronary artery without angina pectoris COMPLETE BLOOD COUNT Routine 04/29/2024 5:10 AM EST Atherosclerotic heart disease of [place] coronary artery without angina pectoris from Last 3 Months Results * (ABNORMAL) Complete blood count (05/12/2024 8:21 AM EST) Only the most recent of3 resultswithin the time period is included. WBC 12.5(H) 4.8 - 10.8 K/mcL LAB HEMETOLOGY METHOD 05/12/2024 11:10 AM [facility] RBC 5.10(H) 3.80 - 4.80 M/mcL LAB HEMETOLOGY METHOD 05/12/2024 11:10 AM [facility] Hemoglobin 14.6 11.5 - 16.0 g/dL LAB HEMETOLOGY METHOD 05/12/2024 11:10 AM [facility] Hematocrit 46.7 35.0 - 47.0 % LAB HEMETOLOGY METHOD 05/12/2024 11:10 AM [facility] MCV 91.4 79.0 - 98.0 FL LAB HEMETOLOGY METHOD 05/12/2024 11:10 AM [facility] MCH 28.6 27.0 - 32.0 pcg LAB HEMETOLOGY METHOD 05/12/2024 11:10 AM EST [facility] MCHC 31.3(L) 32.0 - 37.0 g/dL LAB HEMETOLOGY METHOD 05/12/2024 11:10 AM EST [facility] RDW 16.3(H) 11.0 - 15.0 % LAB HEMETOLOGY METHOD 05/12/2024 11:10 AM EST [facility] Platelets 209 130 - 400 K/mcL LAB HEMETOLOGY METHOD 05/12/2024 11:10 AM EST [facility] MPV 10.7 7.0 - 11.0 FL LAB HEMETOLOGY METHOD 05/12/2024 11:10 AM EST [facility] NRBC 0.0 <1.0 % LAB HEMETOLOGY METHOD 05/12/2024 11:10 AM EST [facility] NRBC Absolute 0.00 <0.10 K/mcL LAB HEMETOLOGY METHOD 05/12/2024 11:10 AM [facility] Blood Venous blood specimen / Unknown Venipuncture / Unknown 05/12/2024 8:21 AM EST 05/12/2024 10:56 AM EST us Yared Weaver MD LAB BLOOD ORDERABLES Final Resul t [facility] [address] [place] [address], * (ABNORMAL) Basic metabolic panel (05/12/2024 8:21 AM EST) Only the most recent of3 resultswithin the time period is included. Sodium 143 133 - 145 mmol/L LAB CHEMISTRY METHOD 05/12/2024 11:22 AM EST [facility] Potassium 3.6 3.5 - 5.5 mmol/L LAB CHEMISTRY METHOD 05/12/2024 11:22 AM [facility] Chloride 109 96 - 110 mmol/L LAB CHEMISTRY METHOD 05/12/2024 11:22 AM [facility] CO2 31 21 - 32 mmol/L LAB CHEMISTRY METHOD 05/12/2024 11:22 AM [facility] Anion Gap 3 3 - 11 LAB CHEMISTRY METHOD 05/12/2024 11:22 AM [facility] Glucose 95 70 - 100 mg/dL LAB CHEMISTRY METHOD 05/12/2024 11:22 AM [facility] BUN 21 5 - 25 mg/dL LAB CHEMISTRY METHOD 05/12/2024 11:22 AM [facility] Creatinine 0.80 0.50 - 1.10 mg/dL LAB CHEMISTRY METHOD 05/12/2024 11:22 AM [facility] LAB eGFR 82 >=60 mL/min/1. 73m2 LAB CHEMISTRY METHOD 05/12/2024 11:22 AM [facility] Comment:Calculation based on the??Chronic Kidney Disease Epidemiology Collaboration (CKD-EPI) equation refit??without adjustment for race. BUN/Creatinine Ratio 26.3 LAB CHEMISTRY METHOD 05/12/2024 11:22 AM [facility] Calcium 8.0(L) 8.5 - 10.5 mg/dL LAB CHEMISTRY METHOD 05/12/2024 11:22 AM [facility] Blood Venous blood specimen / Unknown Venipuncture / Unknown 05/12/2024 8:21 AM EST 05/12/2024 10:56 AM EST us Yared Weaver MD LAB BLOOD ORDERABLES Final Resul t [facility] [address] [place] [address], * Prealbumin (05/09/2024 5:33 AM EST) Prealbumin 24 18 - 45 mg/dL LAB CHEMISTRY METHOD 05/09/2024 1:03 PM EST [facility] Blood Venous blood specimen / Unknown Venipuncture / Unknown 05/09/2024 5:33 AM EST 05/09/2024 11:27 AM EST us Yared Weaver MD LAB BLOOD ORDERABLES Final Resul t [facility] [address] [place] [address], [place] [phone] from Last 3 Months Insurance [facility] Member Subscriber Plan / Payer (Ef fective 2022-Present) Name:Marita Lawrence Relation to Subscriber:Self Name:Marita Lawrence Payer ID:[id number] Group ID:[id number] Type:Not on file Address: [address] [place] [address] Care Teams Acute Dialysis Nurse Relationship Specialty Start Date End Date Name, MD Bobby [address] [place], [place] PCP - General Internal Medicine 04/01/18
--- OUTSIDE RECORDS SUMMARY | 2024-07-05 13:32 | XMS_ITS | Encounter Summary ---
Author Organization [employer] Address [address] [facility] 7t [place] [address] Care Team Providers Care Government Affairs Manager Name Role Phone Name, Bobby GRADY Primary Care Provider [phone] Reason for Visit * Reason Onset Date Comments Durable Medical Equipment 06/15/2024 Encounter Details Date Type Department Care Team ([facility] st Contact Info) Description 06/15/2024 Telephone [facility] MEDICINE [address] [place] [address] Name, MD Bobby [address] [place] [address] Durable Medical Equipment Social History Tobacco Use [...] the past 12 months, has t he [place], gas, oil or water [employer] threatened to shut off services in your [...] * Telephone Encounter - Marielle Aguila - 07/01/2024 10:24 AM EDT Physician's Order form for inserts/liners from [facility] delivered placed on PCP desk for signature. * Telephone Encounter - Marielle Aguila - 06/28/2024 11:16 AM EDT Signed Rx scanned into pt chart and [facility] health care marketing manager/Catalina notified via [employer] staff message. * Telephone Encounter - GEETA Miller - 06/22/2024 5:27 PM EDT Adding communication with DME specialist below as FYI: ----- Message ----- From: GEETA Miller Sent: 06/16/2024 7:22 AM EDT To: TERRELL Vides I saw Ms. Ramirez yesterday for a visit. She currently has diapers and liners at home. Interested in switching from diapers to incontinence poise pads given that diapers too thick for current level of incont, and liners too thin. I see DME rx for liners/inserts was sent yesterday, but pt reported she wants pads not liners. Can you please generate new rx if needed? Thanks! From Bella: Puja Dubois that's not something insurance will cover, Pads will only be the ones made for bed I attempted to contact pt, However no answer. * Telephone Encounter - Marielle Aguila - 06/15/2024 1:28 PM EDT DME RX for inserts/liners generated and placed on providers desk for signature. * Telephone Encounter - Marielle Aguila - 06/15/2024 1:27 PM EDT ----- Message from Catalina Fierro sent at 06/14/2024 9:31 AM EDT ----- Regarding: DME request Contact: Paige, I am Catalina Aguilar, Vehicle Body Builder for [facility] Care Management, requesting the following DME???s on behalf of patient. DME Item: Incontinence pads Supportive DX: Incontinence Member reports using the briefs for comfort when she was dealing with bed sores. Now that the soreshave healed, she would like to switch to pads. If you should have any inquiries regarding this request, feel free to contact the Vehicle Body Builder below. Vehicle Body Builder: Catalina Aguilar E-mail: [email or web address] Sanding Supervisor: Amparo Joyner E-mail: [email or web address] documented in this encounter Plan of Treatment Upcoming Encounters Date Type Department Care Team (Late st Contact Info) Description 07/06/2024 11:00 AM EDT Office Visit [facility] MEDICINE [address] [place] [phone] Name, MD Bobby [address] [place] [address] 09/02/2024 1:00 PM EDT Telemedicine [facility] [address] [place] [address] Skye Melton, HODA documented as of this encounter Goals Goal Patient Goal Type Associated Problems Recent Progress Patient-Stated? Author Smoking cessation General No Inga Magaña, PharmD documented as of this encounter Visit Diagnoses Not on filedocumented in this encounter Additional Health Concerns Assessment Noted Time PHQ-9 Depression Total Score: 0 06/19/19 24 10:09 AM EDT documented as of this encounter Care Teams Government Affairs Manager Relationship Specialty Start Date End Date Name, [place] [address] PCP - General Family Medicine 06/01/15 Eloina 05/13/24 documented as of this encounter
--- OUTSIDE RECORDS SUMMARY | 2024-07-05 13:32 | XMS_ITS | Clinical Summary ---
Author Organization [facility] Address [address] [place] [address] Care Team Providers Care Communication Assistant Name Role Phone Name, Bobby GRADY Primary Care Provider Unavailabl e Allergies Active Allergy Reactions Severity Noted Date Comments Ignacio Inhibitors Anaphylaxis High 04/21/2018 Erythromycin Hives/Urticaria High 04/21/2018 Medications Medication Sig Dispensed Refills Start Date End Date Status fluticasone (FLONASE) 50 MCG/ACT nasal spray 2 Sprays by Each Nare route daily. 0 Active aspirin (SB LOW DOSE ASA EC) 81 MG EC tablet Take 81 mg by mouth daily. 0 Active fluticasone-salmete rol (ADVAIR) 250-50 MCG/DOSE diskus inhaler Inhale 1 Puff into the lungs every 12 hours. 0 Active albuterol (PROVENTIL) (2.5 MG/3ML) 0.083% nebulizer solution Take 1 Vial by nebulization 4 times daily. 0 Active atorvastatin (LIPITOR) 80 MG tablet Take 80 mg by mouth at bedtime. 0 Active diphenhydrAMINE (BENADRYL) 25 MG tablet Take 25 mg by mouth at bedtime as needed. 0 Active bisoprolol (ZEBETA) 5 MG tablet Take 5 mg by mouth daily. 0 Active Ticagrelor 90 MG Tab Take 1 Tab by mouth 2 times daily. 0 Active Cetirizine HCl 10 MG Cap Take 1 Tab by mouth daily. 0 Active varenicline (CHANTIX) 1 MG tablet Take 1 mg by mouth 2 times daily. 0 Active cyclobenzaprine (FLEXERIL) 5 MG tablet Take 5 mg by mouth 3 times daily. 0 Active doxycycline (VIBRAMYCIN) 100 MG capsule Take 100 mg by mouth 2 times daily. 0 Active fluconazole (DIFLUCAN) 150 MG tablet Take 150 mg by mouth once. 0 Active Glucose Blood (FREESTYLE LITE) Strip by In Vitro route. 0 Active Insulin Glargine (LANTUS SOLOSTAR) 100 UNIT/ML Solution Pen-injector Inject into the skin. 0 A ctive montelukast (SINGULAIR) 10 MG tablet Take 10 mg by mouth at bedtime. 0 Active Insulin Aspart (NOVOLOG FLEXPEN SC) Inject 6-10 Units into the skin. 0 Active omeprazole (PRILOSEC) 20 MG capsule Take 20 mg by mouth 2 times daily (before meals). 0 Active OXYCODONE-ACETAMINO PHEN OR Take by mouth. 0 Active predniSONE (DELTASONE) 20 MG tablet Take 20 mg by mouth daily. 0 Active PrednisoLONE 5 MG Tab Take 5 mg by mouth daily. 0 Active Albuterol Sulfate (PROAIR HFA IN) Inhale 90 mcg into the lungs every 4 hours as needed. 0 Active tiotropium (SPIRIVA) 18 MCG inhalation capsule Inhale 18 mcg into the lungs daily. Inhale the contents of one capsule through the Spiriva device every AM 0 Active Dulaglutide 1.5 MG/0.5ML Solution Pen-injector Inject 1.5 mg into the skin once a week. 0 Active Dulaglutide 1.5 MG/0.5ML Solution Pen-injector Inject 1.5 mg into the skin once a week. 0 Active Insulin Pen Needle 31G X 6 MM Misc by Does not apply route 4 times daily. 0 Active Active Problems Problem Noted Date CAD, s/p MT in setting of sepsis 012 Overview: Stress echo suboptimal in 07/2009 Dobut MIBI 08/2009 no sx, normal EKG and nuclear images Echo 06/2009 LVEF 55-60%, diastolic dysfunction Hypertension 07/07/2011 Hyperlipidemia LDL goal < 70 07/07/2011 Overview: IMO update DM2 (diabetes mellitus, type 2) 07/07/19 12 Tobacco abuse 07/07/2011 Allergy-induced asthma 07/07/2011 Family History Medical History Relation Name Comments [place] Breast Aunt 1 maternal aunt, at 60 [place] Breast Aunt 2 paternal aunt, at 60 radio program director ca Aunt 2 Cancer of the Colon Brother at 41 CA Colon Maternal Grandfather d at 50. Other Mother at 43, blo od clot after medical procedure CA Colon Other 1 paternal 1st co usin, in 60s. [place] Breast Other 2 paternal 1st co usin, at 55, living [place] Colon Uncle 1 maternal uncle, at 50, +genetic mutation (unknown) [place] Stomach Uncle 2 maternal uncle, at 60 CA Breast Uncle 3 paternal uncle, male breast cancer, at 54. CA Colon Uncle 4 paternal uncle, 60s Relation Name [...] drink = 0.6 oz pur e alcohol) Sex Assigned at Date Recorded Not on file Last Filed Vital Signs Vital Sign Reading Time Taken Comments Blood Pressure 138/91 04/21/2018 11:01 AM EST Pulse 88 04/21/2018 11:01 AM EST Temperature - - Respiratory Rate - - Oxygen Saturation - - Inhaled Oxygen Concentration - - Weight 92.1 kg (203 lb) 04/21/2018 11:01 AM EST Height 165.1 cm (5' 5 ) 04/21/2018 11:01 AM EST Body Mass Index 33.78 04/21/2018 11:01 AM EST Plan of Treatment Health Maintenance Due Date Last Done Comments Covid-19 Vaccine (#1) 06/30/1960 HEPATITIS C SCREENING 12/30/1977 DTAP/TDAP/TD (1 - Tdap) 12/30/1978 PNEUMOCOCCAL VACCINE FOR HIGH RISK PATIENTS (#1) 12/30 CHOLESTEROL SCREENING 1979 CERVICAL CANCER SCREENING 12/30/1980 COLON CANCER SCREENING 12/30/2009 SHINGLES VACCINE (1 of 2) 12/30/2009 MAMMOGRAM 09/11/2018 09/11/2017 TOBACCO CHECK/ADVISE 05/05/2020 05/05/2018 BMI CHECK/ADVISE 03/30/2024 INFLUENZA (Season Ended) 2024 Care Teams Communication Assistant Relationship Specialty Start Date End Date Name, MD Bobby PCP - General Internal Medicine 04/01/18
--- OUTSIDE RECORDS SUMMARY | 2024-07-05 13:32 | XMS_ITS | Encounter Summary ---
Author Organization [employer] Address [address] [facility] [address]t [place] [address] Care Team Providers Care Concrete Bucket Loader Name Role Phone Name, Bobby GRADY Primary Care Provider [phone] Reason for Visit * Reason Onset Date Comments Durable Medical Equipment 07/04/2024 Encounter Details Date Type Department Care Team ([facility] st Contact Info) Description 07/04/2024 Telephone [facility] MED & PEDS [address] [place], [place] [phone] Name, MD Bobby [address] [place] [address] Durable Medical Equipment Social History Tobacco Use [...] encounter Miscellaneous Notes * Telephone Encounter - Zuri Edmond MA - 07/04/2024 11:40 AM EDT DME for incontinence supplies from Home[facility] delivered received and is being processed. Placed on provider's desk for signature. documented in this encounter Plan of Treatment Upcoming Encounters Date Type Department Care Team (Late st Contact Info) Description 07/06/2024 11:00 AM EDT Office Visit [facility] MEDICINE [address] [place] [address] Name, MD Bobby [address] [place] [address] 09/02/2024 1:00 PM EDT Telemedicine [facility] MEDICINE [address] [place] [address] Skye Melton, HODA documented as of this encounter Goals Goal Patient Goal Type Associated Problems Recent Progress Patient-Stated? Author Smoking cessation General No Inga Magaña, PharmD documented as of this encounter Visit Diagnoses Not on filedocumented in this encounter Additional Health Concerns Assessment Noted Time PHQ-9 Depression Total Score: 0 06/19/19 24 10:09 AM EDT documented as of this encounter Care Teams Concrete Bucket Loader Relationship Specialty Start Date End Date Name, MD Bobby [address] [place] [address] PCP - General Family Medicine 06/01/15 Eloina 05/13/24 documented as of this encounter
--- OUTSIDE RECORDS SUMMARY | 2024-07-05 13:32 | XMS_ITS | Encounter Summary ---
Author Organization [employer] Address [address] [facility] [address] [place] [address] Care Team Providers Care Structural Steel Worker Apprentice Name Role Phone Name, Bobby GRADY Primary Care Provider [phone] Reason for Visit * Reason Comments Med Refill Encounter Details Date Type Department Care Team ([facility] st Contact Info) Description 07/03/2024 Refill [facility] MEDICINE [address] [place], [place] [phone] Name, MD Bobby [address] [place] [address] Chronic obstructive pulmonary disease, unspecified COPD type (CMS/HCC) Social History Tobacco Use Types Packs/Day [...] the past 12 months, has t he [employer], gas, oil or water company threatened to [...] Description 07/06/2024 11:00 AM EDT Office Visit [facility] MEDICINE [address] [place] [phone] NameBobby MD [address] [place] [phone] 09/02/2024 1:00 PM EDT Telemedicine [facility] MEDICINE [address] [place] [phone] Skye Melton RN documented as of this encounter Goals Goal Patient Goal Type Associated Problems Recent Progress Patient-Stated? Author Smoking cessation General No Archana, Inga, PharmD documented as of this encounter Visit Diagnoses Diagnosis Chronic obstructive pulmonary disease, unspecified COPD type (CMS/HCC) documented in this encounter Additional Health Concerns Assessment Noted Time PHQ-9 Depression Total Score: 0 06/19/19 24 10:09 AM EDT documented as of this encounter Care Teams Structural Steel Worker Apprentice Relationship Specialty Start Date End Date NameBobby MD [address] [place] [phone] PCP - General Family Medicine 06/01/15 [place] 05/13/24 documented as of this encounter
--- OUTSIDE RECORDS SUMMARY | 2024-07-05 13:32 | XMS_ITS | Encounter Summary ---
Author Organization [employer] Address [address] [facility] 7t [place] [address] Care Team Providers Care Telecommunications Linesworker Name Role Phone Name, Bobby GRADY Primary Care Provider [phone] Inga Magaña PharmD Unavailable [phone] Reason for Visit * Reason Onset Date Comments Med Refill 05/26/2023 Encounter Details Date Type Department Care Team (Late st Contact Info) Description 05/26/2023 Telephone [facility] MEDICINE [address] [place] [address] Name, MD Bobby [address] [place] [address] Med Refill Social History Tobacco Use Types [...] 7.5-325 MG tablet To be sent to: [facility] - [place], [place] - [address] [place] [address] documented in this encounter Plan of Treatment Upcoming Encounters Date Type Department Care Team ([facility] st Contact Info) Description 07/06/2024 11:00 AM EDT Office Visit [facility] MEDICINE [address] [place] [phone] Name, MD Bobby [address] [place] [address] 09/02/2024 1:00 PM EDT Telemedicine [facility] MED[facility]INE [address] [place] [phone] Skye Melton, HODA documented as of this encounter Goals Goal Patient Goal Type Associated Problems Recent Progress Patient-Stated? Author Smoking cessation General No Inga Magaña, PharmD documented as of this encounter Visit Diagnoses Not on filedocumented in this encounter Additional Health Concerns Assessment Noted Time PHQ-9 Depression Total Score: 0 03/11/20 11:47 AM EST documented as of this encounter Care Teams Telecommunications Linesworker Relationship Specialty Start Date End Date NameBobby MD [address] [place] [address] PCP - General Family Medicine 06/01/15 Inga Magaña, MiltonD [address] [place] [address] Pharmacist Internal Medicine 01/07/23 09/29/23 [place] 05/13/24 documented as of this encounter
--- OUTSIDE RECORDS SUMMARY | 2024-07-05 13:33 | XMS_ITS | Encounter Summary ---
Author Organization [employer] Address [address] [place] [address] Care Team Providers Care Performance Manager Name Role Phone Name, Bobby GRADY Primary Care Provider [phone] Encounter Details Date Type Department Care Team (Latest Contact Info) Description 04/29/2024 Lab Requisition [facility] - Main Lab [address] [place] [address] Yared Weaver MD [address] [place] [address], [phone] Atherosclerotic heart disease of ione coronary artery without angina pectoris Social History [...] 5:10 AM EST Atherosclerotic heart disease of ione coronary artery without angina pectoris BASIC METABOLIC PANEL Routine 04/29/2024 5:10 AM EST Atherosclerotic heart disease of ione coronary artery without angina pectoris documented in this encounter Results * (ABNORMAL) Basic metabolic panel (04/29/2024 5:10 AM EST) Sodium 143 133 - 145 mmol/L LAB CHEMISTRY METHOD 04/29/2024 11:20 AM EST [facility] ([facility]) [facility] LAB Potassium 4.5 3.5 - 5.5 mmol/L LAB CHEMISTRY METHOD 04/29/2024 11:[address] [facility] Chloride 106 96 - 110 mmol/L LAB CHEMISTRY METHOD 04/29/2024 11:[address] [facility] CO2 31 21 - 32 mmol/L LAB CHEMISTRY METHOD 04/29/2024 11:[address] [facility] Anion Gap 6 3 - 11 LAB CHEMISTRY METHOD 04/29/2024 11:[address] [facility] Glucose 97 70 - 100 mg/dL LAB CHEMISTRY METHOD 04/29/2024 11:[address] [facility] BUN 34(H) 5 - 25 mg/dL LAB CHEMISTRY METHOD 04/29/2024 11:[address] [facility] Creatinine 0.80 0.50 - 1.10 mg/dL LAB CHEMISTRY METHOD 04/29/2024 11:[address] [facility] eGFR 82 >=60 mL/min/1. 73m2 LAB CHEMISTRY METHOD 04/29/2024 11:[address] [facility] Comment:Calculation based on the??Chronic Kidney Disease Epidemiology Collaboration (CKD-EPI) equation refit??without adjustment for race. BUN/Creatinine Ratio 42.5 LAB CHEMISTRY METHOD 04/29/2024 11:[address] [facility] Calcium 7.9(L) 8.5 - 10.5 mg/dL LAB CHEMISTRY METHOD 04/29/2024 11:[address] [facility] Blood Venous blood specimen / Unknown Venipuncture / Unknown 04/29/2024 5:10 AM EST 04/29/2024 9:30 AM EST us Yared Weaver MD LAB BLOOD ORDERABLES Final Resul t [facility] [address] [place] [address], * (ABNORMAL) Complete blood count (04/29/2024 5:10 AM EST) [facility] Signature WBC 18.2(H) 4.8 - 10.8 K/mcL LAB HEMETOLOGY METHOD 04/29/2024 10:[address] [facility] RBC 5.30(H) 3.80 - 4.80 M/mcL LAB HEMETOLOGY METHOD 04/29/2024 10:[address] [facility] Hemoglobin 15.0 11.5 - 16.0 g/dL LAB HEMETOLOGY METHOD 04/29/2024 10:[address] [facility] Hematocrit 48.0(H) 35.0 - 47.0 % LAB HEMETOLOGY METHOD 04/29/2024 10:[address] [facility] MCV 90.2 79.0 - 98.0 FL LAB HEMETOLOGY METHOD 04/29/2024 10:[address] [facility] MCH 28.2 27.0 - 32.0 pcg LAB HEMETOLOGY METHOD 04/29/2024 10:[address] [facility] MCHC 31.3(L) 32.0 - 37.0 g/dL LAB HEMETOLOGY METHOD 04/29/2024 10:[address] [facility] RDW 14.7 11.0 - 15.0 % LAB HEMETOLOGY METHOD 04/29/2024 10:[address] [facility] Platelets 238 130 - 400 K/mcL LAB HEMETOLOGY METHOD 04/29/2024 10:[address] [facility] MPV 11.8(H) 7.0 - 11.0 FL LAB HEMETOLOGY METHOD 04/29/2024 10:[address] [facility] NRBC 0.0 <1.0 % LAB HEMETOLOGY METHOD 04/29/2024 10:[address] [facility] NRBC Absolute 0.00 <0.10 K/mcL LAB HEMETOLOGY METHOD 04/29/2024 10:30 AM EST [facility] Blood Venous blood specimen / Unknown Venipuncture / Unknown 04/29/2024 5:10 AM EST 04/29/2024 9:30 AM EST us Yared Weaver MD LAB BLOOD ORDERABLES Final Resul t [facility] [address] [place] [address], documented in this encounter Visit Diagnoses Diagnosis Atherosclerotic heart disease of ione coronary artery without angina pectoris documented in this encounter Care Teams Performance Manager Relationship Specialty Start Date End Date Name, MD Bobby [address] [place], [place] PCP - General Internal Medicine 04/01/18 documented as of this encounter
--- OUTSIDE RECORDS SUMMARY | 2024-07-05 13:33 | XMS_ITS | Patient Health Record ---
Author Organization [facility] Address [address] [place] [address] Care Team Providers Care Java Xml Developer Name Role Phone Name Bobby GRADY Primary Care Provider Brooks Carbajal [phone] Allergies Allergen (clinical drug ingredient) Drug/Non Drug Allergy documented on EMR Reaction Allergy Type Onset Date Status erythromycin Erythromycin Unknown Drug Allergy A ctive Reason For Referral No Information Medications Medication SIG (Take, Route, Fr equency, Duration) [...] Ventolin HFA Active Cetirizine HCl Activ e Social History Tobacco Use: Social History Observation Description Date Details (start date - stop date) Current Smoker NA - NA Tobacco Use/Smoking Question Answer Notes Patient is [...] drinks (0 point) Points 1 Interpretation Negative Section Notes: Smoker 1/2 PPD, no sig alcoh ol Problems Problem Type SNOMED Code ICD Code Onset Dates Problem Status W/U Status Risk Notes Problem 497526117 Encounter for screening for malignant neoplasm of colon (Z12.11) Active confirmed Problem 563561928 Family history o f colon cancer (Z80.0) Active confirmed Problem 71957646 Constipation, unspecified constipation type (K59.00) Active confirmed Problem 495694726 History of colonic polyps (Z86.010) Active confirmed Plan Of Treatment Future Test Test Name Order Date COLONOSCOPY 10/24/2016 Insurance Providers Payer Name Payer Address Payer Phone Subscriber Number Group Number Insured Name Patient Relationship to Insured Coverage Start Date Coverage End Date MEDICARE OF [place] [address] [place] [id number] APURVA TANG Self - patient is the insured MEDICAID OF [facility] [employer] [address] [place] [address] [id number] Self - patient is the insured Medical (General) History Medical History History ICD Code COPD/Asthma KIDNEY STONE-2012 IDDM Hypertension HERNIATED DISK X4 in neck and lower back ARTHRITIS KNEES AND HIPS Multiple colonoscopies since --history of colon polyps--last colonoscopy was in 2009--negative GERD--EGD in 2009--no esophagitis--minim al Denies IA,CVA,renal disease Surgical History Surgery Date(Month/Year) LUMPECTOMY --Benign Cholecystectomy Tonsillectomy Kidney stone--right
--- OUTSIDE RECORDS SUMMARY | 2024-07-05 13:33 | XMS_ITS | Data Portability ---
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 Name Role Phone [facility] [facility] OTHER NAME, MOHINI Primary Care Provider Assessment Encounter Date Assessment Date Assessment LastModified by Organization Details LastModified Time 05/03/2024 05/03/2024 Labs 04/27:Na 129-K 4.0-Bun 38-Cr 0.7-wbc 15.9-hgb 15.2- hct 45-plt 240 [email or web address] Not available 05/03/2024 18:08:16 05/05/2024 05/05/2024 Labs 04/27:Na 129-K 4.0-Bun 38-Cr 0.7-wbc 15.9-hgb 15.2- hct 45-plt 240 [email or web address] Not available 05/05/2024 12:09:46 05/11/2024 05/11/2024 Labs 05/05: Na 144-K 3.9-Bun 19- Cr 0.7-wbc 13.8-hgb 15-hct 47.2 Labs 04/27:Na 129-K 4.0-Bun 38-Cr 0.7-wbc 15.9-hgb 15.2- hct 45-plt 240 Not available 05/11/2024 16:44:46 05/12/2024 05/12/2024 45 minutes spent on coordination of discharge. [email or web address] Not available 05/12/2024 11:03:36 Plan of Treatment [...] exacerbatio n of chronic obstructive pulmonary disease 579040198 Active 2024 Not Available [facility] 5 13:13:30 Pneumonia caused by Influenza A virus 265939276 Active 2024 Not Available [facility] 5 12:06:26 Pneumonia caused by respiratory syncytial virus 069140016 Active 2024 Not Available [facility] 5 12:06:27 Type 2 diabetes mellitus 85951147 Active 2024 Not Available [facility] 5 12:09:46 Essential hypertensio n 11513970 Active 2024 Not Available [facility] 5 12:10:17 Hypothyroid ism 53556738 Active 2024 Not Available [facility] 5 12:10:48 Gastroesoph ageal reflux disease without esophagitis 405009138 Active 2024 Not Available [facility] 12:11:49 Primary gout 56967270 Active 2024 Not Available [facility] 5 12:11:50 Muscle weakness 68955602 Active 2024 Not Available [facility] 5 09:55:06 Unsteady when standing 279289676 Active 2024 Not Available [facility] 5 09:56:09 Difficulty walking 021948653 Active 2024 Not Available [facility] 5 09:56:40 Chronic obstructive pulmonary disease 03752032 Active 2024 GEETA KWOK [address], [address], [place], [address] , [facility] 5 14:52:55 Leukocytosi s 344711813 Active 2024 from steriod use MIGUE BROOKSRD, [facility] [address], [address], [place], [address] , [facility] 5 14:54:46 Coronary arterioscle rosis 11497456 Active 2024 MIGUEANNETTE BRISENO, [facility] [address], [address], [place], [address] , [facility] 5 15:05:30 Gout 50853845 Active 2024 MIGUEANNETTE BRISENO, [address], [address], [place], [address] , [facility] 5 15:09:53 Allergic rhinitis 47668249 Active 2024 MIGUE BRISENO, [facility] [address], [address], [place], [address] , [facility] 5 15:17:53 Smoker 01425619 Active 2024 MIGUE BRISENO, [facility] [address], [address], [place], [address] , [facility] 5 15:27:03 Uncomplicat ed asthma 903767093 Active 2024 Not Available [facility] 5 14:07:57 Old myocardial infarction 3643397 Active 2024 Not Available [facility] 5 14:08:17 Obstructive sleep apnea syndrome 70717950 Active 2024 Not Available [facility] 5 14:09:00 Disorder of nervous system due to type 2 diabetes mellitus 476272804 Active 2024 Not Available [facility] 5 14:09:32 Problem Notes None recorded. Medical Equipment None Reported. Allergies Allergen ID Allergen Name Allergen Category Reaction Reaction Severity Criticality Documentation Date Start Date Code Code System Note Provider Name and Address Organization Details Recorded Time 62518 Product containin g angiotens in-conver ting enzyme inhibitor (product) medicatio n angioedem a severe Not available 04/28/20242024 72442 009 SNOMED Not Available Not Available Not Available 85180 enalapril Not available Not available Not available high 04/28/20242017 3827 RxNorm Other react ion(s ): Anaph ylaxi s Not Available Not Available Not Available 97462 metformin medicatio n Not available Not available Not available 04/28/20242024 6809 RxNorm Not Available Not Available Not Available 81018 hydromorp cb medicatio n Not available Not available high 04/28/20242022 3423 RxNorm Other react ion(s ): TINGL ING, PT DOES NOT LIKE THE FEELI NG MED GIVES HER Not Available Not Available Not Available 36113 azithromy josephine medicatio n Not available Not available Not available 05/03/2024 28799 RxNorm Not Available Not Available Not Available 05700 erythromy josephine medicatio n anaphylax is Not available high 05/03/20242010 4053 RxNorm Other react ion(s ): Hives /Urti caria , pustu les over entir e body, Unkno wn Other React ion(s ): Unkno wn Not Available Not Available Not Available 25332 lisinopri l medicatio n Not available Not available Not available 05/03/2024 10730 RxNorm Not Available Not Available Not Available 54087 metoprolo l Not available Not available Not [...] Not Available Not Available No t Available [email or web address] Ultra Test strips USE DIRECTED TO TEST [...] Updated DateTime 5 165.1 cm 27.1 kg/m2 91991.1 2 g 78 /min 18 /min 97.5 [degF] 95 % 95 % 124 mm[Hg] 62 mm[Hg] Chiquita Guardado MD [address] [facility] [address], [address], [place], [address] 5 17:39:40 Date Recorded Body height Heart rate Respiratory rate Body temperature Oxygen saturation Oxygen saturation in Arterial blood by Pulse oximetry Systolic blood pressure Diastolic blood pressure Provider Name and Address Organization Details Last Updated DateTime 5 165.1 cm 86 /min 18 /min 97.5 [degF] 96 % 96 % 129 mm[Hg] 78 mm[Hg] JOHAN VU NP [address] [facility] [address], [address], [place], [address], [facility] 5 12:09:17 Date Recorded Body height Body temperature Respiratory rate Heart rate Oxygen saturation Oxygen saturation in Arterial blood by Pulse oximetry Provider Name and Address Organization Details Last Updated DateTime 5 165.1 cm 97.4 [degF] 20 /min 72 /min 95 % 95 % GEETA KWOK [address], [address], [place], [address], [facility] 5 16:23:28 Date Recorded Body height Heart rate Respiratory rate Body temperature Oxygen saturation Oxygen saturation in Arterial blood by Pulse oximetry Systolic blood pressure Diastolic blood pressure Provider Name and Address Organization Details Last Updated DateTime 5 165.1 cm 80 /min 20 /min 97.4 [degF] 95 % 95 % 155 mm[Hg] 65 mm[Hg] JOHAN VU NP [address] [facility] [address], [address], [place], [address], [facility] 5 10:33:52 Date Recorded Body height Respiratory rate Oxygen saturation Oxygen saturation in Arterial blood by Pulse oximetry Provider Name and Address Organization Details Last Updated DateTime 05/04/2024 165.1 cm 20 /min 95 % 95 % GEETA KWOK [address], [address], [place], [address], [facility] 5 16:47:12 Social History Question Answer Notes LastModified by Organization Details LastModified Time Tobacco Smoking Status Former Smoker quit 2017, then started again, now none x 2 months. Chiquita Guardado MD [address], [address], [place], [address], [facility] 05/03/2024 22:40:28 Do You Have An Advance Directive? Yes Information not available 05/01/2024 What Is Your Level Of Alcohol Consumption? None Information not available 05/01/2024 What Is Your Code Status? Full Code Information not available 05/01/2024 Where Do You Live? [facility] With Information not available 05/03/2024 Legal Guardian? No Informati on not available 05/03/2024 Do You Have A Medical Power Of Track Oiler? Yes Information not available 05/03/2024 What Was [...] Recorded Time Tdap 0 completed Samuel che [facility] 04/29/2024 12:14:00 Tdap 3 completed Samuel che [facility] 04/29/2024 12:14:06 Pneumococcal conjugate PCV 13 3 completed Samuel che [facility] 04/29/2024 12:14:27 pneumococcal polysaccharide PPV23 0 completed Samuel che [facility] 04/29/2024 12:14:43 influenza, unspecified formulation 1 completed Samuel Jacks-Malik null, [facility] 04/29/2024 12:15:03 influenza, unspecified formulation 2 completed Samuel Jacks-Malik null, [facility] 04/29/2024 12:15:20 influenza, unspecified formulation 3 completed Samuel Jacks-Malik null, [facility] 04/29/2024 12:15:25 influenza, unspecified formulation 4 completed Samuel Jacks-Malik null, [facility] 04/29/2024 12:15:30 SARS-COV-2 (COVID-19) vaccine, UNSPECIFIED 1 completed Samuel Jacks-Malik null, [facility] 04/29/2024 12:16:07 SARS-COV-2 (COVID-19) vaccine, UNSPECIFIED 1 completed Samuel Jacks-Malik null, [facility] 04/29/2024 12:16:12 SARS-COV-2 (COVID-19) vaccine, UNSPECIFIED 1 completed Samuel Jacks-Malik null, [facility] 04/29/2024 12:16:16 SARS-COV-2 (COVID-19) vaccine, UNSPECIFIED 2 completed Samuel Jacks-Malik null, [facility] 04/29/2024 12:16:21 SARS-COV-2 (COVID-19) vaccine, UNSPECIFIED 2 completed Samuel Jacks-Malik null, [facility] 04/29/2024 12:16:27 SARS-COV-2 (COVID-19) vaccine, UNSPECIFIED 3 completed Samuel Jacks-Malik null, [facility] 04/29/2024 12:16:41 SARS-COV-2 (COVID-19) vaccine, UNSPECIFIED 4 completed Samuel Jacks-Malik null, [facility] 04/29/2024 12:16:51 zoster, unspecified formulation 3 completed Samuel Jacks-Malik null, [facility] 04/29/2024 12:17:13 zoster, unspecified formulation 3 completed Samuel che [place] [facility] 04/29/2024 12:17:19 Past Encounters Encounter ID Performer Location Encounter Start Date Encounter Closed Date Diagnosis/Indication Diagnosis SNOMED-CT Code Diagnosis ICD10 Code Diagnosis Note [id number] GEETA KWOK [place] [address] [place] [address] 04/29/2024 10:45:26 05/03/2024 09:36:15 Chronic obstructive pulmonary disease 66482749 J44.9 2 RSV/Influe nzaon presentati on O2 sats as low as 83 % and tachypneic 26tx inpatient with IV steroids, neb tx and abxcont doxycyclin e BID for 2 more dayscont on neb tx prn, albuterol inhaler prncont trelegy, respimat, dupixent. roflumilas tnow on prednisone taper , resume 2.5 mg when tapercompl etedmonito r resp status. Type 2 asa betes mellitus 25509857 E11.9 hx of neuropathy On trulicity, Insulin SSC, lyrica, jardiancec ont lantus at hsrobaxin prn for neuropathy painmonito r BGL TID Hypothyroidism 97389464 E03.9 continue on levothyrox inemonitor tsh prn Coronary arteriosclerosis 51946305 I25.10 HX of HLD, HTNon statincont on asamonitor for cardiac sx Essential hypertension 03935731 I10 cont on coreg dailymonit or BP Gout 21262986 M10.9 cont allopurino l dailyfollo w uric acid level prn Smoker 47727271 F17.200 reports that she has not smoked in 1 monthnow on nicotine patch 21 mgprovide support for cessation Hyperlipidemia 31168143 E78.5 cont atorvastat inmonitor labs prn Gastroesop hageal reflux disease without esophagitis 985556665 K21.9 cont omeprazole dailymonit or GI sx Allergic rhinitis 997434 04 J30.9 cont on fluticason e, montelukas t, cetirizine Leukocytosis 965188731 D 72.829 chronic from chronic steriod usefollow labs Low back pain 049502628 M54.50 cont lido patch qdpercocet prnon robaxin for neuropathy as well [id number] Chiquita Guardado MD [facility] [address] [place] [address] 05/03/2024 17:29:21 05/16/2024 12:42:00 Chronic obstructive pulmonary disease 06792216 J43.8 S/P several recent exacerbati ons, now [...] as planned. Type 2 asa betes mellitus 54928706 E11.42 Some high sugars since here, likely due to prednisone , expect improvemen t as taper continues. Continue Lantus 35U BID, Trulicity 1.5 mg weekly, Jardiance 10 mg qd, and SSI.Contin ue Lyrica 100 mg TID and methocarbo mol 750 mg q 8 hrs prn for neuropathy pain.Monit or fingerstic ks TID and HgA1C as outpt. Hypothyroidism 71458026 E03.8 Continue on levothyrox ine 112 mcg qdMonitor TSH as outpt. Coronary arteriosclerosis 40169635 I25.10 No recent sxs.Contin ue atorvastat in 80 mg qd, carvedilol 6.25 mg BID (hold for SBP<90), and ASA 81 mg qd.Monitor for sxs.F/U with cardio as planned. Essential hypertension 66463730 I10 Good control on meds as above.Chantel tor BP and labs. Gout 06165675 M10.09 No current sxs.Contin ue allopurino l 100 mg qdMonitor for flare. Smoker 82692980 F17.200 No longer smoking since recent hospitaliz ations.Con tinue nicotine patch 21 mg qd, taper as outpt.Cont inue to encourage abstinence . Hyperlipidemia 95793447 E78.49 Continue atorvastat in 80 mg qdMonitor labs as outpt. Gastroesop hageal reflux disease without esophagitis 865561735 K21.9 No current sxs.Contin ue omeprazole qdMonitor GI sxs Allergic rhinitis 048530 04 J30.89 Continue fluticason e nasal spray, montelukas t, and cetirizine Monitor sxs. Leukocytosis 254239589 D 72.828 Thought to be due to prednisone .Monitor Low back pain 657439643 M54.59 Under fair control.Co ntinue robaxin and Lyrica as above and lidocaine patch qd, and Percocet 7.5/325 mg q 6 hrs prn.PT/OT as above. Intertrigo 24954952 L30. 4 Continue diflucan 150 mg qod x 3 doses and will start nystatin cream BID.Monito r for healing. Asthenia 60769694 R53.1 Very deconditio bernice.Needs PT/OT for strengthen ing, balance, gait training, safety and function.C ontinue fall precaution s.Monitor for safety. [id number] [place] [address] 05/04/2024 11:59:27 05/16/2024 14:09:43 Viral pharyngitis 4697971 B34.9 throat and tonsil noted with erythema and slight swelling, not exudateswi ll add lozenges take 1 prn Q2 and warm water and salt rinses for comfort qid prn Intertrigo 33733537 L30. 4 acute onset over 1-2 dayserythe matous and scattered dry patchy rash noted covering vast majority of left and right buttockscu rrently rx diflucan qod for 3 dosesdue to pruritis will add clotrimazo le/beta BID for 10 daydiscuss ed with nursing will re eval in [id number] [place] [address] 05/05/2024 12:08:09 05/10/2024 11:42:42 Chronic obstructive pulmonary disease 26875682 J44.9 2/2 RSV/Influe nzaDoing betterWean ed off Q1Bgzwervk off prednisone .Doxy completed. Continue nebs and inhalers.C ombivent dose currently 2 inh bid, not typical but will not change as med managed by [facility].Monito r Type 2 asa betes mellitus 29257679 E11.9 BS borderline low in am and at lunchStill on prednisone taper.Disc ussed with pt.Plan -Continue trulicity and jardiance and SSIReduce lantus to 25 units q HS, continue 35 units in amAdd large portions to diet, refer to document control clerk per pt. request, and assure HS snack (manuela crackers and PB on dinner tray)Monit or closely and adjust meds as needed. Hypothyroidism 24345661 E03.9 continue on levothyrox inemonitor tsh prn Coronary arteriosclerosis 22356863 I25.10 HX of HLD, HTNon statin, coreg, ASAmonitor for cardiac sx Essential hypertension 93662178 I10 cont on coreg dailymonit or BP Gout 22921534 M10.9 cont allopurino l dailyfollo w uric acid level prn Smoker 35506407 F17.200 reports that she has not smoked in 1 monthnow on nicotine patch 21 mgprovide support for cessation Hyperlipidemia 17301931 E78.5 cont atorvastat inmonitor labs prn Gastroesop hageal reflux disease without esophagitis 007085870 K21.9 cont omeprazole daily - came in on this doseUnsure of baseline, but will continue this dose for now, mahesh. with higher doses of prednisone .Consider dose taper when more stable and if stays LTC.monito r GI sx Allergic rhinitis 283536 04 J30.9 cont on fluticason e, montelukas t, cetirizine Leukocytosis 616900562 D 72.829 chronic from chronic steriod use - improving. 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 [id number] GEETA KWOK [address] [place] [address] 05/11/2024 13:31:15 05/12/2024 14:06:40 Type 2 diabetes mellitus 68304330 E11.9 BS borderline low in am and at lunchStill on prednisone taper.Cont inue trulicity and jardiance and SSIReduce lantus to 25 units q HS, continue 35 units in amMonitor closely and adjust meds as needed. Dermal mycosis 60555137 B36.9 Breast folds, buttocksCo ntinue diflucan and topical antifungal /steroid cream.Keep areas clean and dryMonitor closely. Gastroesop hageal reflux disease without esophagitis 560776328 K21.9 cont omeprazole daily - came in on this doseUnsure of baseline, but will continue this dose for now, mahesh. with higher doses of prednisone .Consider dose taper when more stable and if stays LTC.monito r GI sx Chronic ob structive pulmonary disease 48582925 J44.9 2 RSV/Influe nzaDoing betterWean ed off A7Zbulsrpi off prednisone .Doxy completed. Continue nebs and inhalers.C ombivent dose currently 2 inh bid, not typical but will not change as med managed by [facility].Monito r Leukocytosis 514200310 D 72.829 chronic from chronic steriod use - improving. follow labs Essential hypertension 58111577 I10 cont on coreg dailymonit or BP Smoker 81670876 F17.200 reports that she has not smoked in 1 monthnow on nicotine patch 21 mgprovide support for cessation Pressure i njury of coccygeal region of back stage II 7145441633 9921446 L89.152 patient reporting coccyx painfollow ed by wound NPreiterat ed [facility] recommenda tions to Turn, reposition & offload Q2 hours & PRN to aid in wound healing. Encourage appropriat e dietary supplement ation to aid in wound healing. [id number] MANDO DAVID [address] [place] [address] 05/12/2024 10:32:45 05/20/2024 10:27:09 Type 2 diabetes mellitus 15450692 E11.9 BS borderline low a few weeks ago, lantus reduced to 35 units q am, 25 units q hs.Remains on trulicity, jardiance, and lispro SSI.BS improved on reduced dose of lantus.Of note, prednisone taper ending 05/15.Pt. will continue to monitor BS at home and adjust insulin as needed. Dermal mycosis 44941175 B36.9 Breast folds, buttocks; now improving. Completed diflucan.M ay continue topical antifungal /steroid cream.Keep areas clean and dryMonitor closely. Gastroesop hageal reflux disease without esophagitis 101710140 K21.9 cont omeprazole daily Chronic ob structive pulmonary disease 50659798 J44.9 2/ RSV/Influe nzaResolve d.Weaned off G2Axrgzfem off prednisone .Doxy completed. Continue nebs and inhalers.M onitor Leukocytosis 385624759 D 72.829 chronic from chronic steriod use - improving. follow labs as outpt. Hypothyroidism 60706985 E03.9 continue on levothyrox inemonitor tsh prn Coronary arteriosclerosis 34920868 I25.10 HX of HLD, HTNon statin, coreg, ASAmonitor for cardiac sx Essential hypertension 93470623 I10 cont on coreg dailymonit or BP Gout 00828827 M10.9 cont allopurino l dailyfollo w uric acid level prn Smoker 73738209 F17.200 reports that she has not smoked in 1 monthnow on nicotine patch 21 mgprovide support for cessation - wishes to continue to not smoke upon d/c home. Hyperlipidemia 41113168 E78.5 cont atorvastat inmonitor labs prn Allergic rhinitis 463492 04 J30.9 cont on fluticason e, montelukas t, cetirizine Low back pain 916557465 M54.50 cont lido patch qdpercocet prnon robaxin for neuropathy as well Health Concerns Section Related Observation LastModified by Organization Detai ls LastModified Time None Recorded Concern Status LastModified by Organization Details LastModified Time None Recorded Advance Directives Directive Y: Payers Encounter Date Sequence Insurance Name Policy Number Policy Mendez Covered Member ID Mendez Member ID Guarantor Name 05/03/2024 1 [facility] - DOS ON OR AFTER 2022 - MEDICARE [place]AGE [place]/ADV ANTAGE - PPO) Marita Lawrence [id number] Marita Lawrence 05/04/2024 1 [facility] - DOS ON OR AFTER 2022 - [place]V ANTAGE - PPO) Marita Lawrence [id number] Marita Lawrence 05/05/2024 1 [facility] - DOS ON OR AFTER 2022 - [place]/ADV ANTAGE - PPO) Marita Lawrence [id number] Marita Ramirez Pinckard 05/11/2024 1 [facility] - DOS ON OR AFTER 2022 - [place]/ADV ANTAGE - PPO) Marita Lawrence [id number] Marita Ramirez Pinckard 05/12/2024 1 [facility] - DOS ON OR AFTER 2022 - [place]/ADV ANTAGE - PPO) Marita Lawrence [id number] Marita Lawrence Notes Date Note Type Note [...] influenza also [facility]. [facility] [...] to home level of O2, 2L by ME, but remained weak and wastransferred here for [...] with post-op hypothyroidism. Chiquita Guardado MD [address] [facility] [address], [address], [place], [address], [facility] [employer] [facility] 05/14/2024 17:33:09 5 text/html Marita is [...] dot and spread quickly. GEETA KWOK [address], [address], [place], [address], [facility] [employer] [facility] 05/13/2024 16:49:37 5 text/html Marita is [...] snack. She is requesting to see the document control clerk.She then shows me the rash on her [...] post-op hypothyroidism. JOHAN VU NP [address], [address], [place], [address], [facility] 05/05/2024 12:42:06 5 text/html This is a [...] is nio acute concerns. GEETA KWOK [address] [facility] [address], [address], [place], [address], [facility] 05/11/2024 16:45:23 5 text/html Marita is seen [...] thyroidectomy with post-op hypothyroidism. JOHAN VU NP [address] [place] [address], [address], [place], [address], [facility] [employer] 05/20/2024 10:22:41 OBGyn Episode No OBEpisode recorded.
== END 2024-07-05 11:06 | disposition home or self-care (01) ==
LOC: HO.XRAY 11:05
PROVIDERS: PCP Internal Medicine Geriatric Medicine; Visit Provider General Practice
DX: R05.9 Cough, unspecified (principal)
CPT/HCPCS: 71046

== ENCOUNTER → 2024-07-05 11:12 | Outpatient (BNV) | payer OTHER, SELFPAY | PROVIDERS: PCP Internal Medicine Geriatric Medicine; Visit Provider Radiology Diagnostic Radiology | DX: J18.9 Pneumonia, unspecified organism (principal) | CPT/HCPCS: 71046 ==

== ENCOUNTER 2024-08-01 09:14 | Outpatient (REF) | payer OTHER, SELFPAY ==
--- NOTE | ~2024-08-01 | US_ITS ---
CLINICAL HISTORY: N20.0 - Calculus of kidney US RENAL Comparison: US/SR - US RENAL BI - 01/22/24 12:32 EDT Findings: The right kidney measures 11.4 cm in length. Normal renal cortical thickness and echotexture. Mild pelvicaliectasis similar to prior. No cortical mass lesion. There are 2 mm and 3 mm calculi. The left kidney measures 11.8 cm in length. Normal renal cortical thickness and echotexture. No hydronephrosis or cortical mass lesion. There is a 2 mm calculus. IMPRESSION: 1. Mild right-sided pelvicaliectasis is similar to prior and may be chronic. No helen hydronephrosis. 2. No left hydronephrosis. 3. Nonobstructing bilateral nephrolithiasis. This document has been electronically signed by: Anastasia Meyer DO on 08/01/2024 16:08:28
--- OUTSIDE RECORDS SUMMARY | 2024-08-01 09:57 | XMS_ITS | Clinical Summary ---
Author Organization [address] [facility] Address [address] [place] [address] Phone Care Team Providers Care Podopediatrician Name Role Phone Name, Bobby GRADY Primary Care Provider [phone] Encounters Date Type Department Care Team Description 05/11/2024 Lab Requisition [facility] Lab [address] [place] [phone] Yared Weaver MD Atherosclerotic heart disease of [place] coronary artery without angina pectoris 05/08/2024 Lab Requisition [facility] Lab [address] [place] [phone] Yared Weaver MD Hypothyroidism, unspecified 05/04/2024 Lab Requisition [facility] Lab [address] [place] [phone] Yared Weaver MD Atherosclerotic heart disease of [place] coronary artery without angina pectoris from Last 3 Months Surgical History Surgery Date Site/Laterality Comments CHOLECYSTECTOMY PROCEDURE: HI CHOLECYSTECTOMY OTHER SURGICAL HISTORY PROCEDURE: HISTORY OTHER; COMMENT: Cardiac stent KIDNEY STONE SURGERY PROCEDURE: HI NEPHROLITHOTOMY REMOVAL CALCULUS BREAST LUMPECTOMY Right PROCEDURE: HISTORICAL BREAST LUMPECTOMY; COMMENT: benign Medical History Medical History Date Comments Coronary atherosclerosis of unspecified type of vessel, [place] or graft 07/07/2011 DX:Coronary atherosclerosis of unspecified type of vessel, [place] or graft Hypertension 07/07/2011 DX:Hypertension Historical Medical DX 07/07/2011 DX:Hyperli pidemia LDL goal < 70 DM2 (diabetes mellitus, type 2) ([facility] V24, CMS/HCC V28) 07/07/2011 DX:DM2 (diabetes mellitus, type 2) ([facility]) Tobacco abuse 07/07/2011 DX:Tobacco abuse Allergy-induced asthma 07/07/2011 DX:Allerg y-induced asthma Family History Medical History Relation Name Comments Breast cancer Aunt 1 maternal aunt, at 60 Breast cancer Aunt 2 paternal aunt, at 60 Other: 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 Aunt 2 Colon cancer Brother [...] 8:21 AM EST Atherosclerotic heart disease of [place] coronary artery without angina pectoris COMPLETE BLOOD COUNT Routine 05/12/2024 8:21 AM EST Atherosclerotic heart disease of [place] coronary artery without angina pectoris PREALBUMIN Routine 05/09/2024 5:33 AM EST Hypothyroidism, unspecified BASIC METABOLIC PANEL Routine 05/05/2024 5:05 AM EST Atherosclerotic heart disease of [place] coronary artery without angina pectoris COMPLETE BLOOD COUNT Routine 05/05/2024 5:05 AM EST Atherosclerotic heart disease of [place] coronary artery without angina pectoris from Last 3 Months Results * (ABNORMAL) Complete blood count (05/12/2024 8:21 AM EST) Only the most recent of2 resultswithin the time period is included. WBC 12.5(H) 4.8 - 10.8 K/mcL LAB HEMETOLOGY METHOD 05/12/2024 11:10 AM [facility] LAB RBC 5.10(H) 3.80 - 4.80 M/mcL LAB HEMETOLOGY METHOD 05/12/2024 11:10 AM [facility] LAB Hemoglobin 14.6 11.5 - 16.0 g/dL LAB HEMETOLOGY METHOD 05/12/2024 11:10 AM [facility] LAB Hematocrit 46.7 35.0 - 47.0 % LAB HEMETOLOGY METHOD 05/12/2024 11:10 AM [facility] LAB MCV 91.4 79.0 - 98.0 FL LAB HEMETOLOGY METHOD 05/12/2024 11:10 AM [facility] LAB MCH 28.6 27.0 - 32.0 pcg LAB HEMETOLOGY METHOD 05/12/2024 11:10 AM [facility] LAB MCHC 31.3(L) 32.0 - 37.0 g/dL LAB HEMETOLOGY METHOD 05/12/2024 11:10 AM [facility] LAB RDW 16.3(H) 11.0 - 15.0 % LAB HEMETOLOGY METHOD 05/12/2024 11:10 AM [facility] LAB Platelets 209 130 - 400 K/mcL LAB HEMETOLOGY METHOD 05/12/2024 11:10 AM EST [facility] LAB MPV 10.7 7.0 - 11.0 FL LAB HEMETOLOGY METHOD 05/12/2024 11:10 AM EST [facility] LAB NRBC 0.0 <1.0 % LAB HEMETOLOGY METHOD 05/12/2024 11:10 AM EST [facility] LAB NRBC Absolute 0.00 <0.10 K/mcL LAB HEMETOLOGY METHOD 05/12/2024 11:10 AM EST [facility] LAB Blood Venous blood specimen / Unknown Venipuncture / Unknown 05/12/2024 8:21 AM EST 05/12/2024 10:56 AM EST us Yared Weaver MD LAB BLOOD ORDERABLES Final Resul t [facility] [address] [place] [address], [place] [phone] * (ABNORMAL) Basic metabolic panel (05/12/2024 8:21 AM EST) Only the most recent of2 resultswithin the time period is included. Sodium 143 133 - 145 mmol/L LAB CHEMISTRY METHOD 05/12/2024 11:22 AM [facility] LAB Potassium 3.6 3.5 - 5.5 mmol/L LAB CHEMISTRY METHOD 05/12/2024 11:22 AM [facility] LAB Chloride 109 96 - 110 mmol/L LAB CHEMISTRY METHOD 05/12/2024 11:22 AM [facility] LAB CO2 31 21 - 32 mmol/L LAB CHEMISTRY METHOD 05/12/2024 11:22 AM [facility] Anion Gap 3 3 - 11 LAB CHEMISTRY METHOD 05/12/2024 11:22 AM [facility] LAB Glucose 95 70 - 100 mg/dL LAB CHEMISTRY METHOD 05/12/2024 11:22 AM [facility] BUN 21 5 - 25 mg/dL LAB CHEMISTRY METHOD 05/12/2024 11:22 AM [facility] LAB Creatinine 0.80 0.50 - 1.10 mg/dL LAB CHEMISTRY METHOD 05/12/2024 11:22 AM [facility] LAB eGFR 82 >=60 mL/min/1. 73m2 LAB CHEMISTRY METHOD 05/12/2024 11:22 AM [facility] LAB Comment:Calculation based on the??Chronic Kidney Disease Epidemiology Collaboration (CKD-EPI) equation refit??without adjustment for race. BUN/Creatinine Ratio 26.3 LAB CHEMISTRY METHOD 05/12/2024 11:22 AM [facility] LAB Calcium 8.0(L) 8.5 - 10.5 mg/dL LAB CHEMISTRY METHOD 05/12/2024 11:22 AM [facility] LAB Blood Venous blood specimen / Unknown Venipuncture / Unknown 05/12/2024 8:21 AM EST 05/12/2024 10:56 AM EST Yared Weaver MD LAB BLOOD ORDERABLES Final Resul t [facility] [address] [place] [address], * Prealbumin (05/09/2024 5:33 AM EST) Prealbumin 24 18 - 45 mg/dL LAB CHEMISTRY METHOD 05/09/2024 1:03 PM EST [facility] Blood Venous blood specimen / Unknown Venipuncture / Unknown 05/09/2024 5:33 AM EST 05/09/2024 11:27 AM EST Yared Weaver MD LAB BLOOD ORDERABLES Final Resul t [facility] [address] [place] [address], [place] [phone] from Last 3 Months Insurance [facility] Member Subscriber Plan / Payer (Ef fective 2022-Present) Name:Marita Lawrence Relation to Subscriber:Self Name:Marita Lawrence Payer ID:[id number] Group ID:[id number] Type:Not on file Address: [place] [address] [address] [address] Care Teams Podopediatrician Relationship Specialty Start Date End Date Name, MD Bobby [address] [place], [place] PCP - General Internal Medicine 04/01/18
--- OUTSIDE RECORDS SUMMARY | 2024-08-01 09:57 | XMS_ITS | Encounter Summary ---
Author Organization [employer] Address 75 [facility] 7t [place] [address] Care Team Providers Care Experimental Plastics Fabricator Name Role Phone Name, Bobby GRADY Primary Care Provider [phone] Inga Magaña PharmD Unavailable [phone] Reason for Visit * Reason Onset Date Comments Med Refill 05/26/2023 Encounter Details Date Type Department Care Team (Late st Contact Info) Description 05/26/2023 Telephone [facility] MEDICINE [address] [place], [place] [phone] Name, MD Bobby [address] [place], [place] [phone] Med Refill Social History Tobacco Use Types [...] 7.5-325 MG tablet To be sent to: [facility] - [place], [place] - [address] [place] [address] documented in this encounter Plan of Treatment Upcoming Encounters Date Type Department Care Team ([facility] st Contact Info) Description 08/05/2024 11:30 AM EDT Telemedicine [facility] MEDICINE [address] [place] [address] Name, MD Bobby [address] [place] [address] 09/02/2024 1:00 PM EDT Telemedicine [facility] MED[facility]INE [address] [place] [address] Skye Melton RN 11/02/2024 9:30 AM EDT Office Visit [facility] [address] [place] [address] NameBobby MD [address] [place] [address] documented as of this encounter Goals Goal Patient Goal Type Associated Problems Recent Progress Patient-Stated? Author Smoking cessation General No Puia, Inga, PharmD documented as of this encounter Visit Diagnoses Not on filedocumented in this encounter Additional Health Concerns Assessment Noted Time PHQ-9 Depression Total Score: 0 03/11/20 22 11:47 AM EST documented as of this encounter Care Teams Experimental Plastics Fabricator Relationship Specialty Start Date End Date Name, MD Bobby [address] [place], [place] [phone] PCP - General Family Medicine 06/01/15 Inga Magaña, PharmD [address] [place] [address] Pharmacist Internal Medicine 01/07/23 09/29/23 [place] 05/13/24 documented as of this encounter
--- OUTSIDE RECORDS SUMMARY | 2024-08-01 09:57 | XMS_ITS | Encounter Summary ---
Author Organization [employer] Address 75 [facility] 7t [place] [address] Care Team Providers Care Consumer Sales Representative Name Role Phone Name, Bobby GRADY Primary Care Provider [phone] Inga Magaña PharmD Unavailable [phone] Reason for Visit * Reason Comments Med Refill Encounter Details Date Type Department Care Team ([facility] st Contact Info) Description 04/28/2023 Refill [facility] MEDICINE [address] [place] [address] Name, MD Bobby [address] [place] [address] Social History Tobacco Use Types Packs/Day Years [...] Care Team (Late st Contact Info) Description 08/05/2024 11:30 AM EDT Telemedicine [address] [address] NameBobby MD [address] [place] [address] 09/02/2024 1:00 PM EDT Telemedicine [address] [address] Skye Melton RN 11/02/2024 9:30 AM EDT Office Visit [address] [address] NameBobby MD [address] [place] [address] documented as of this encounter Goals Goal Patient Goal Type Associated Problems Recent Progress Patient-Stated? Author Smoking cessation General No Inga Magaña, PharmD documented as of this encounter Visit Diagnoses Not on filedocumented in this encounter Additional Health Concerns Assessment Noted Time PHQ-9 Depression Total Score: 0 03/11/20 22 11:47 AM EST documented as of this encounter Care Teams Consumer Sales Representative Relationship Specialty Start Date End Date Bobby David MD [address] [place] [address] PCP - General Family Medicine 06/01/15 PuiaInga PharmD [address] [place] [address] Pharmacist Internal Medicine 01/07/23 09/29/23 [place] 05/13/24 documented as of this encounter
--- OUTSIDE RECORDS SUMMARY | 2024-08-01 09:57 | XMS_ITS | Encounter Summary ---
Author Organization [employer] Address [address] [place] [address] Care Team Providers Care Housing Coordinator Name Role Phone Name, Bobby GRADY Primary Care Provider [phone] Encounter Details Date Type Department Care Team (Late st Contact Info) Description 05/08/2024 Lab Requisition [facility] - Main Lab [address] [place] [address] Yared Wevaer MD [address] [place] [address], [address] Hypothyroidism, unspecified Social History Tobacco Use [...] LAB CHEMISTRY METHOD 05/09/2024 1:03 PM EST [facility] Blood Venous blood specimen / Unknown Venipuncture / Unknown 05/09/2024 5:33 AM EST 05/09/2024 11:27 AM EST us Yared Weaver MD LAB BLOOD ORDERABLES Final Resul t [facility] [address] [place] [address], documented in this encounter Visit Diagnoses Diagnosis Hypothyroidism, unspecified documented in this encounter Care Teams Housing Coordinator Relationship Specialty Start Date End Date Name, MD Bobby [address] [place], [place] PCP - General Internal Medicine 04/01/18 documented as of this encounter
--- OUTSIDE RECORDS SUMMARY | 2024-08-01 09:57 | XMS_ITS | Encounter Summary ---
Author Organization [employer] Address 75 [facility] 7t [place] [address] Care Team Providers Care Amusement Centre Manager Name Role Phone Name, Bobby GRADY Primary Care Provider [phone] Reason for Visit * Reason Comments Med Refill Encounter Details Date Type Department Care Team ([facility] st Contact Info) Description 07/20/2024 Refill [facility] MEDICINE [address] [place] [address] Sherly Pichardo, GEETA [address] [place] [address] Social History Tobacco Use Types Packs/Day Years [...] Info) Description 08/05/2024 11:30 AM EDT Telemedicine [address] [address] Name, MD Bobby [address] [place] [address] 09/02/2024 1:00 PM EDT Telemedicine [address] [address] Skye Melton RN 11/02/2024 9:30 AM EDT Office Visit [address] [address] Name, MD Bobby [address] [place] [address] documented as of this encounter Goals Goal Patient Goal Type Associated Problems Recent Progress Patient-Stated? Author Smoking cessation General No Inga Magaña, PharmD documented as of this encounter Visit Diagnoses Not on filedocumented in this encounter Additional Health Concerns Assessment Noted Time PHQ-9 Depression Total Score: 0 06/19/19 10:09 AM EDT documented as of this encounter Care Teams Amusement Centre Manager Relationship Specialty Start Date End Date Name, MD Bobby [address] [place] [address] PCP - General Family Medicine 06/01/15 [place] 05/13/24 documented as of this encounter
--- OUTSIDE RECORDS SUMMARY | 2024-08-01 09:57 | XMS_ITS | Encounter Summary ---
Author Organization [employer] Address 75 [facility] 7 [place] [address] Care Team Providers Care Television Installer Name Role Phone Name, Bobby GRADY Primary Care Provider [phone] Reason for Visit * Reason Onset Date Comments Hospital Follow-up 05/17/2024 Encounter Details Date Type Department Care Team ([facility] st Contact Info) Description 05/17/2024 Telephone [facility] MEDICINE [address] [place], [place] [phone] Name, MD Bobby [address] [place] [address] Hospital Follow-up Social History Tobacco Use Types [...] the past 12 months, has t he [employer], gas, oil or water [employer] threatened to shut off services in your [...] from pt requesting a HDF appt. [facility] [facility] [place] Date of admission: 04/06/2024 Discharge date: 05/12/2024 Diagnosed: RSV , Influenza A+B , COPD *Send message to [place] Clinical Care Coordinators documented in this encounter Plan of Treatment Upcoming Encounters Date Type Department Care Team (Late st Contact Info) Description 08/05/2024 11:30 AM EDT Telemedicine [facility] MEDICINE [address] [place] [address] Name, MD Bobby [address] [place] [address] 09/02/2024 1:00 PM EDT Telemedicine [facility] MEDICINE [address] [place] [address] Skye Melton RN 11/02/2024 9:30 AM EDT Office Visit [facility] MED[facility]INE [address] [place] [address] Name, MD Bobby [address] [place] [address] documented as of this encounter Goals Goal Patient Goal Type Associated Problems Recent Progress Patient-Stated? Author Smoking cessation General Inga Radford, PharmD documented as of this encounter Visit Diagnoses Not on filedocumented in this encounter Additional Health Concerns Assessment Noted Time PHQ-9 Depression Total Score: 0 06/19/19 24 10:09 AM EDT documented as of this encounter Care Teams Television Installer Relationship Specialty Start Date End Date Name, MD Bobby [address] [place] [address] PCP - General Family Medicine 06/01/15 [place] 05/13/24 documented as of this encounter
--- OUTSIDE RECORDS SUMMARY | 2024-08-01 09:57 | XMS_ITS | Encounter Summary ---
Author Organization [employer] Address [address] [place] [address] 7t [place] [address] Care Team Providers Care Accounting File Clerk Name Role Phone Name, Bobby GRADY Primary Care Provider [phone] Inga Magaña PharmD Unavailable [phone] Reason for Referral * Imaging (Routine) - Closed Specialty Diagnoses / Procedures Referred By Contac t Referred To Contact Diagnoses Other ovarian cyst, right side Procedures US Pelvis Transvaginal Monisha Linton CNM [address] [place] [address] Phone: tel: fax: [facility] and [facility] Scan [address] [place], [place] Phone: tel: fax: Referral ID Status Reason Start Date Expiration Date Visits Re quested Visits Authorized [id number] Closed 04/01/2022 09/28/2022 1 1 Encounter Details Date Type Department Care Team (Late st Contact Info) Description 04/01/2022 Orders Only [facility] MEDICINE [address] [place] [address] Monisha Linton CNM [address] [place] [address] Other ovarian cyst, right side (Primary Dx) [...] Info) Description 08/05/2024 11:30 AM EDT Telemedicine [address] [address] NameBobby MD [address] [place] [address] 09/02/2024 1:00 PM EDT Telemedicine [address] [address] Skye Melton RN 11/02/2024 9:30 AM EDT Office Visit [address] [address] NameBobby MD [address] [place] [address] Scheduled Orders Name Type Priority Associated Diagnoses [...] documented as of this encounter Care Teams Accounting File Clerk Relationship Specialty Start Date End Date Bobby David MD [address] [place] [address] PCP - General Family Medicine 06/01/15 Inga Magaña, PharmD [address] [place] [address] Pharmacist Internal Medicine 01/07/23 09/29/23 [place] 05/13/24 documented as of this encounter
--- OUTSIDE RECORDS SUMMARY | 2024-08-01 09:57 | XMS_ITS | Encounter Summary ---
Author Organization [employer] Address [address] [place] [address] 7 [place] [address] Care Team Providers Care Casing Operator Name Role Phone Name, Bobby GRADY Primary Care Provider [phone] Inga Magaña PharmD Unavailable [phone] Reason for Visit * Reason Onset Date Comments Prior Authorization 01/21/2023 HumaLOG KWIK PEN 100 UNIT/ML injection Encounter Details Date Type Department Care Team ([facility] st Contact Info) Description 01/21/2023 Telephone [facility] MEDICINE [address] [place], [place] [phone] Name, MD Bobby [address] [place], [place] [phone] Prior Authorization (HumaLOG KWIKPEN 100 UNIT/ML injection) [...] Info) Description 08/05/2024 11:30 AM EDT Telemedicine [facility] MEDICINE [address] [place] [address] Name, MD Bobby [address] [place] [address] 09/02/2024 1:00 PM EDT Telemedicine [facility] MEDICINE [address] [place] [address] Skye Melton RN 11/02/2024 9:30 AM EDT Office Visit [facility] [address] [place] [address] Name, MD Bobby [address] [place] [address] documented as of this encounter Goals Goal Patient Goal Type Associated Problems Recent Progress Patient-Stated? Author Smoking cessation General No Inga Magaña, PharmD documented as of this encounter Visit Diagnoses Not on filedocumented in this encounter Additional Health Concerns Assessment Noted Time PHQ-9 Depression Total Score: 0 03/11/20 22 11:47 AM EST documented as of this encounter Care Teams Casing Operator Relationship Specialty Start Date End Date Name, MD Bobby [address] [place] [address] PCP - General Family Medicine 06/01/15 Inga Magaña, PharmD [address] [place] [address] Pharmacist Internal Medicine 01/07/23 09/29/23 [place] 05/13/24 documented as of this encounter
--- OUTSIDE RECORDS SUMMARY | 2024-08-01 09:57 | XMS_ITS | Encounter Summary ---
Author Organization [employer] Address 75 [facility] 7t [place] [address] Care Team Providers Care Labor Standards Director Name Role Phone Name, Bobby GRADY Primary Care Provider [phone] Inga Magaña PharmD Unavailable [phone] Reason for Visit * Reason Onset Date Comments Med Refill 01/20/2023 Encounter Details Date Type Department Care Team ([facility] st Contact Info) Description 01/20/2023 Telephone [facility] MEDICINE [address] [place], [place] [phone] Name, MD Bobby [address] [place], [place] [phone] Med Refill Social History Tobacco Use Types [...] Info) Description 08/05/2024 11:30 AM EDT Telemedicine [facility] MEDICINE [address] [place] [address] Bobby David MD [address] [place] [address] 09/02/2024 1:00 PM EDT Telemedicine [facility] MEDICINE [address] [place] [address] Skye Melton RN 11/02/2024 9:30 AM EDT Office Visit [facility] MEDICINE [address] [place] [address] NameBobby MD [address] [place] [address] documented as of this encounter Goals Goal Patient Goal Type Associated Problems Recent Progress Patient-Stated? Author Smoking cessation General No Inga Magaña, MiltonD documented as of this encounter Visit Diagnoses Not on filedocumented in this encounter Additional Health Concerns Assessment Noted Time PHQ-9 Depression Total Score: 0 03/11/20 22 11:47 AM EST documented as of this encounter Care Teams Labor Standards Director Relationship Specialty Start Date End Date Name, MD Bobby [address] [place] [address] PCP - General Family Medicine 06/01/15 Inga Magaña, MiltonD [address] [place] [address] Pharmacist Internal Medicine 01/07/23 09/29/23 [place] 05/13/24 documented as of this encounter
--- OUTSIDE RECORDS SUMMARY | 2024-08-01 09:57 | XMS_ITS | Encounter Summary ---
Author Organization [employer] Address [address] [place] [address] 7t [place] [address] Care Team Providers Care Spinner Hand Name Role Phone Name, Bobby GRADY Primary Care Provider [phone] Inga Magaña PharmD Unavailable [phone] Reason for Visit * Reason Comments Med Refill Encounter Details Date Type Department Care Team ([facility] Contact Info) Description 04/07/2022 Refill [facility]INE [address] [place] [address] Sherly Pichardo, MACHINE SPLITTER [address] [place] [address] Chronic low back pain with sciatica, sciatica [...] Upcoming Encounters Date Type Department Care Team ([facility] st Contact Info) Description 08/05/2024 11:30 AM EDT Telemedicine [facility] [place] [address] Name, MD Bobby [facility] [place] [address] 09/02/2024 1:00 PM EDT Telemedicine [facility] [place] [address] Skye Melton, HODA 11/02/2024 9:30 AM EDT Office Visit [facility] [place] [address] Name, MD Bobby [facility] [place] [address] documented as of this encounter Visit Diagnoses Diagnosis Chronic low back pain with sciatica, sciatica laterality unspecified, unspecified back pain laterality documented in this encounter Additional Health Concerns Assessment Noted Time PHQ-9 Depression Total Score: 0 03/11/20 22 11:47 AM EST documented as of this encounter Care Teams Spinner Hand Relationship Specialty Start Date End Date Name, MD Bobby [facility] [place] [address] PCP - General Family Medicine 06/01/15 Inga Magaña PharmD [address] [place] [address] Pharmacist Internal Medicine 01/07/23 09/29/23 [place] 05/13/24 documented as of this encounter
--- OUTSIDE RECORDS SUMMARY | 2024-08-01 09:57 | XMS_ITS | Encounter Summary ---
Author Organization [facility] Address [address] [place] [address] Care Team Providers Care Retoucher Photoengraving Name Role Phone Name, Bobby GRADY Primary Care Provider Unavailabl e Encounter Details Date Type Department Care Team Description 04/23/2018 Release of Information Medical Records [address] [place] [id number] Abstract, Provider Social History Tobacco Use Types Packs/Day Years Used Date Smoking Tobacco: Former Cigarettes Q uit: 09/17/2017 Smokeless Tobacco: Current Alcohol Use Standard Drinks/Week Comments Not Asked 0 (1 standard drink = 0.6 oz pur e alcohol) Sex Assigned at Date Recorded Not on file documented as of this encounter Plan of Treatment Not on file documented as of this encounter Visit Diagnoses Not on filedocumented in this encounter Care Teams Retoucher Photoengraving Relationship Specialty Start Date End Date Name, MD Bobby PCP - General Internal Medicine 04/01/18 documented as of this encounter
--- OUTSIDE RECORDS SUMMARY | 2024-08-01 09:57 | XMS_ITS | Encounter Summary ---
Author Organization [employer] Address [address] [place] [address] Care Team Providers Care Harvest Manager Name Role Phone Name, Bobby GRADY Primary Care Provider [phone] Encounter Details Date Type Department Care Team (Latest Contact Info) Description 05/04/2024 Lab Requisition [facility] - Main Lab [address] [place] [address] Yared Weaver MD [address] [place] [address], [phone] Atherosclerotic heart disease of [place] coronary artery without angina pectoris Social History [...] 5:05 AM EST Atherosclerotic heart disease of [place] coronary artery without angina pectoris BASIC METABOLIC PANEL Routine 05/05/2024 5:05 AM EST Atherosclerotic heart disease of [place] coronary artery without angina pectoris documented in this encounter Results * (ABNORMAL) Basic metabolic panel (05/05/2024 5:05 AM EST) Sodium 144 133 - 145 mmol/L LAB CHEMISTRY METHOD 05/05/2024 11:28 AM EST [facility] Potassium 3.9 3.5 - 5.5 mmol/L LAB CHEMISTRY METHOD 05/05/2024 11:28 AM [facility] Chloride 103 96 - 110 mmol/L LAB CHEMISTRY METHOD 05/05/2024 11:28 AM [facility] CO2 34(H) 21 - 32 mmol/L LAB CHEMISTRY METHOD 05/05/2024 11:28 AM [facility] Anion Gap 7 3 - 11 LAB CHEMISTRY METHOD 05/05/2024 11:28 AM [facility] Glucose 101(H) 70 - 100 mg/dL LAB CHEMISTRY METHOD 05/05/2024 11:28 AM [facility] BUN 19 5 - 25 mg/dL LAB CHEMISTRY METHOD 05/05/2024 11:28 AM [facility] Creatinine 0.71 0.50 - 1.10 mg/dL LAB CHEMISTRY METHOD 05/05/2024 11:28 AM [facility] LAB eGFR 95 >=60 mL/min/1. 73m2 LAB CHEMISTRY METHOD 05/05/2024 11:28 AM [facility] LAB Comment:Calculation based on the??Chronic Kidney Disease Epidemiology Collaboration (CKD-EPI) equation refit??without adjustment for race. BUN/Creatinine Ratio 26.8 LAB CHEMISTRY METHOD 05/05/2024 11:28 AM [facility] Calcium 8.0(L) 8.5 - 10.5 mg/dL LAB CHEMISTRY METHOD 05/05/2024 11:28 AM [facility] LAB Blood Venous blood specimen / Unknown Venipuncture / Unknown 05/05/2024 5:05 AM EST 05/05/2024 9:37 AM EST us Yared Weaver MD LAB BLOOD ORDERABLES Final Resul t [facility] [address] [place] [address], * (ABNORMAL) Complete blood count (05/05/2024 5:05 AM EST) [facility] [address] WBC 13.8(H) 4.8 - 10.8 K/mcL LAB HEMETOLOGY METHOD 05/05/2024 11:24 AM [facility] RBC 5.30(H) 3.80 - 4.80 M/mcL LAB HEMETOLOGY METHOD 05/05/2024 11:24 AM [facility] Hemoglobin 15.0 11.5 - 16.0 g/dL LAB HEMETOLOGY METHOD 05/05/2024 11:24 AM [facility] Hematocrit 47.2(H) 35.0 - 47.0 % LAB HEMETOLOGY METHOD 05/05/2024 11:24 AM [facility] MCV 89.6 79.0 - 98.0 FL LAB HEMETOLOGY METHOD 05/05/2024 11:24 AM [facility] MCH 28.5 27.0 - 32.0 pcg LAB HEMETOLOGY METHOD 05/05/2024 11:24 AM [facility] MCHC 31.8(L) 32.0 - 37.0 g/dL LAB HEMETOLOGY METHOD 05/05/2024 11:24 AM [facility] RDW 15.9(H) 11.0 - 15.0 % LAB HEMETOLOGY METHOD 05/05/2024 11:24 AM [facility] Platelets 184 130 - 400 K/mcL LAB HEMETOLOGY METHOD 05/05/2024 11:24 AM [facility] MPV 12.0(H) 7.0 - 11.0 FL LAB HEMETOLOGY METHOD 05/05/2024 11:24 AM [facility] NRBC 0.0 <1.0 % LAB HEMETOLOGY METHOD 05/05/2024 11:24 AM [facility] LAB NRBC Absolute 0.00 <0.10 K/mcL LAB HEMETOLOGY METHOD 05/05/2024 11:24 AM EST [facility] Blood Venous blood specimen / Unknown Venipuncture / Unknown 05/05/2024 5:05 AM EST 05/05/2024 9:37 AM EST us Yared Weaver MD LAB BLOOD ORDERABLES Final Resul t [facility] [address] [place] [address], documented in this encounter Visit Diagnoses Diagnosis Atherosclerotic heart disease of [place] coronary artery without angina pectoris documented in this encounter Care Teams Harvest Manager Relationship Specialty Start Date End Date Name, MD Bobby [address] [place], [place] PCP - General Internal Medicine 04/01/18 documented as of this encounter
--- OUTSIDE RECORDS SUMMARY | 2024-08-01 09:57 | XMS_ITS | Encounter Summary ---
Author Organization [employer] Address [address] [facility] 7[address] [place] [address] Care Team Providers Care Possum Trapper Name Role Phone Name, Bobby GRADY Primary Care Provider [phone] Inga Magaña PharmD Unavailable [phone] Reason for Visit * Reason Comments Med Change Request Encounter Details Date Type Department Care Team ([facility] st Contact Info) Description 06/09/2023 Refill [facility] MED[facility]INE [address] [place] [address] Name, MD Bobby [address] [place] [address] Social History Tobacco Use Types Packs/Day Years [...] Info) Description 08/05/2024 11:30 AM EDT Telemedicine [address] [address] NameBobby MD [address] [place] [address] 09/02/2024 1:00 PM EDT Telemedicine [address] [address] Skye Melton RN 11/02/2024 9:30 AM EDT Office Visit [address] [address] NameBobby MD [address] [place] [address] documented as of this encounter Goals Goal Patient Goal Type Associated Problems Recent Progress Patient-Stated? Author Smoking cessation General No Inga Magaña, PharmD documented as of this encounter Visit Diagnoses Not on filedocumented in this encounter Additional Health Concerns Assessment Noted Time PHQ-9 Depression Total Score: 0 03/11/20 22 11:47 AM EST documented as of this encounter Care Teams Possum Trapper Relationship Specialty Start Date End Date Bobby David MD [address] [place] [address] PCP - General Family Medicine 06/01/15 PuiaInga PharmD [address] [place] [address] Pharmacist Internal Medicine 01/07/23 09/29/23 Eloina 05/13/24 documented as of this encounter
--- OUTSIDE RECORDS SUMMARY | 2024-08-01 09:57 | XMS_ITS | Encounter Summary ---
Author Organization [employer] Address [address] [place] [address] 7 [place] [address] Care Team Providers Care Radio Frequency Design Engineer Name Role Phone Bobby David MD Primary Care Provider [phone] Inga Magaña PharmD Unavailable Reason for Visit * Reason Onset Date Comments Referral 04/23/2022 Encounter Details Date Type Department Care Team (Late st Contact Info) Description 04/23/2022 Telephone [facility] [address] [place] [address] Name, MD Bobby [address] [place] [address] Referral Social History Tobacco Use Types Packs/Day [...] Pt wants referral to see Gastroenterology in [facility], as pt has hx of colon cancer and has been waiting 10 years for colonoscopy. Pt stated June at [facility] has an apptset up for pt on May 13 and needs referral placed before then. Pt verbalized understanding and denied having any further questions or concerns at this time. * Telephone Encounter - Octavio Babinos - 04/23/2022 11:46 AM EST Tc from pt requesting an referral to see an gastroenterology at [facility] Please contact pt at [phone] documented in this encounter Plan of Treatment Upcoming Encounters Date Type Department Care Team (Late st Contact Info) Description 08/05/2024 11:30 AM EDT Telemedicine [address] [address] Bobby David MD [address] [place] [address] 09/02/2024 1:00 PM EDT Telemedicine [address] [address] Skye Melton RN 11/02/2024 9:30 AM EDT Office Visit [facility] [address] [place] [address] Bobby David MD [address] [place] [address] documented as of this encounter Visit Diagnoses Diagnosis History of colon polyps- Primary Family history of colon cancer Family history of malignant neoplasm of gastrointestinal tract documented in this encounter Additional Health Concerns Assessment Noted Time PHQ-9 Depression Total Score: 0 03/11/20 22 11:47 AM EST documented as of this encounter Care Teams Radio Frequency Design Engineer Relationship Specialty Start Date End Date Bobby David MD [address] [place] [address] PCP - General Family Medicine 06/01/15 Inga Magaña, Lucio [address] [place] [address] Pharmacist Internal Medicine 01/07/23 09/29/23 Eloina 05/13/24 documented as of this encounter
--- OUTSIDE RECORDS SUMMARY | 2024-08-01 09:57 | XMS_ITS | Encounter Summary ---
Author Organization [facility] Address [address] [place] [address] Care Team Providers Care Gaming Dealer Name Role Phone Name, Bobby GRADY Primary Care Provider [phone] Encounter Details Date Type Department Care Team (Latest Contact Info) Description 05/11/2024 Lab Requisition [facility] - Main Lab [address] [place] [address] Yared Weaver MD [address] [place] [address], [phone] Atherosclerotic heart disease of [place] coronary artery without angina pectoris Social History [...] 8:21 AM EST Atherosclerotic heart disease of [place] coronary artery without angina pectoris BASIC METABOLIC PANEL Routine 05/12/2024 8:21 AM EST Atherosclerotic heart disease of [place] coronary artery without angina pectoris documented in this encounter Results * (ABNORMAL) Basic metabolic panel (05/12/2024 8:21 AM EST) Sodium 143 133 - 145 mmol/L LAB CHEMISTRY METHOD 05/12/2024 11:22 AM EST [facility] Potassium 3.6 3.5 - [...] MD LAB BLOOD ORDERABLES Final Resul t [facility] [address] [place] [address], * (ABNORMAL) Complete blood count (05/12/2024 8:21 AM EST) [facility] WBC 12.5(H) 4.8 - 10.8 K/mcL LAB [...] 11:10 AM [facility] LAB MPV 10.7 7.0 - 11.0 FL LAB HEMETOLOGY METHOD 05/12/2024 11:10 AM [facility] LAB NRBC 0.0 <1.0 % LAB HEMETOLOGY METHOD 05/12/2024 11:10 AM [facility] LAB NRBC Absolute 0.00 <0.10 K/mcL LAB HEMETOLOGY METHOD 05/12/2024 11:10 AM EST [facility] Blood Venous blood specimen / Unknown Venipuncture / Unknown 05/12/2024 8:21 AM EST 05/12/2024 10:56 AM EST us Yared Weaver MD LAB BLOOD ORDERABLES Final Resul t [facility] [address] [place] [address], documented in this encounter Visit Diagnoses Diagnosis Atherosclerotic heart disease of [place] coronary artery without angina pectoris documented in this encounter Care Teams Gaming Dealer Relationship Specialty Start Date End Date Name, MD Bobby [address] [place], [place] PCP - General Internal Medicine 04/01/18 documented as of this encounter
--- OUTSIDE RECORDS SUMMARY | 2024-08-01 09:58 | XMS_ITS | Encounter Summary ---
Author Organization [employer] Address [address] [place] [address] [address] [place] [address] Care Team Providers Care Manager Field Service Name Role Phone Name, Bobby GRADY Primary Care Provider [phone] Inga Magaña PharmD Unavailable [phone] Reason for Visit * Reason Comments Med Refill Encounter Details Date Type Department Care Team (Late Contact Info) Description 11/18/2022 Refill [facility] MED & PEDS [address] [place], [place] [id number] Name, MD Bobby [address] [place] [address] Type 2 diabetes mellitus without complications (CMS/HCC) [...] Department Care Team (Late Contact Info) Description 08/05/2024 11:30 AM EDT Telemedicine [facility] [place] [address] Name, [place] [address] 09/02/2024 1:00 PM EDT Telemedicine [facility] [place] [address] Skye Melton, RN 11/02/2024 9:30 AM EDT Office Visit [facility] [place] [address] Name, [place] [address] documented as of this encounter Visit Diagnoses Diagnosis Type 2 diabetes mellitus without complications (CMS/HCC) documented in this encounter Additional Health Concerns Assessment Noted Time PHQ-9 Depression Total Score: 0 03/11/20 22 11:47 AM EST documented as of this encounter Care Teams Manager Field Service Relationship Specialty Start Date End Date [place], [place] [address] PCP - General Family Medicine 06/01/15 [place] [address] Pharmacist Internal Medicine 01/07/23 09/29/23 Eloina 05/13/24 documented as of this encounter
--- OUTSIDE RECORDS SUMMARY | 2024-08-01 09:58 | XMS_ITS | Data Portability ---
Author Organization [email or web address], [place] in [employer] Address [address] [place] [phone] Care Team Providers Care Rouge Presser Name Role Phone HIM CCA OTHER NAME, MOHINI Primary Care Provider [phone] Assessment Encounter Date Assessment Date Assessment LastModified by Organization Details LastModified Time 05/27/2023 05/27/2023 I provided real -time medical direction via phone for this encounter, and was available for additional phone based assistance as needed. I have reviewed and agree with the Assessment and Plan as documented by the Char Belt Operator. We discussed the diagnostic uncertainty of home [...] to call 911- verbalized understanding of instructions [email or web address] Not available 05/27/2023 10:52:57 08/31/2023 08/31/2023 Ms. [...] did a neb one hour prior to can handler arrival. VSS, SpO2 95% on RA. Char Belt Operator on site reports wheezing b/l. Allergy to [...] Ag, QL IA, respiratory specimen [address], [id number] 4 18:31:32 rapid flu (A+B) [address], [id number] 4 18:31:52 BMP, serum or plasma [address], [address] 4 18:32:18 rapid SARS CoV 2 Ag, QL IA, respiratory specimen [address], [address] 4 09:38:44 rapid flu (A+B) [address], [address] 4 09:37:23 rapid strep group A, throat [address], [address] 4 09:37:50 BMP, serum or plasma 2023 024 NANCY [facility], [address] [place] [address], [address] 4 09:38:18 rapid SARS CoV 2 Ag, QL IA, respiratory specimen 2023 024 [email or web address] [facility], [address] [place] [address], [id number] 4 11:19:29 rapid flu (A+B) 2023 024 [email or web address] 0 [facility], [address] [place] [address], [id number] 4 11:19:31 rapid strep group A, throat 2023 024 [email or web address] 0 [facility], [address] [place] [address], [id number] 4 11:19:33 glucose, fingerstick , blood 2023 024 [email or web address] 0 [facility], [address] [place] [address], [id number] 4 11:30:51 Referral None recorded. Procedures None recorded. Surgeries None recorded. Imaging None recorded. Medication Orders methylpredn isolone sod succ (PF) 125 mg/2 mL solution for injection 2023 [facility], [address] [place] [address], [id number], 4 11:53:19 doxycycline hyclate 100 mg capsule 2023 024 [facility], [address] [place] [address], [id number], 4 14:23:57 doxycycline hyclate 100 mg capsule 2023 024 [facility], [address] [place] [address], [id number], 4 11:53:19 ipratropium 0.5 mg-albutero l 3 mg (2.5 mg base)/3 mL nebulizatio n soln 2023 024 [facility], [address] [place] [address], [id number], 4 11:53:19 prednisone 10 mg tablet 2023 024 [facility], [address] [place] [address], [id number], 4 14:23:58 magnesium sulfate 2 gram/50 mL in 0.9 % sodium chloride IV piggyback 2023 024 [facility], [address] [place] [address], [id number], 4 11:53:19 cefpodoxime 200 mg tablet 2023 024 [facility], [address] [place] [address], [id number], 4 13:59:54 prednisone 20 mg tablet 2023 024 [facility], [address] [place] [address], [id number], 4 17:38:03 prednisone 10 mg tablet 2023 024 [facility], [address] [place] [address], [id number], 4 13:59:54 prednisone 10 mg tablet 2023 024 [facility], [address] [place] [address], [id number], 4 12:00:49 prednisone 20 mg tablet [address] [facility], [address] [place] [address], [id number], 4 11:33:48 prednisone 10 mg tablet 2023 024 [id number], [address] [facility], [place], [address], 4 11:18:33 albuterol sulfate 2.5 mg/3 mL (0.083 %) solution for nebulizatio n 2023 024 [email or web address] 0 Not available 4 11:19:26 prednisone 20 mg tablet 2023 024 [email or web address] 0 Not available 4 11:19:25 prednisone 20 mg tablet 2023 024 [facility], [address] [place] [address], [id number], 4 13:43:28 Patient TargetsNo targets recorded. Patient InstructionsNo instructions recorded. Reason for Referral None Reported. Results Created Date Observation Date Name Description Value Unit Range Abnormal Flag Note LastModifiedBy Organization Detail LastModifiedTime 05/27/1905/27/2023 gluco se, david harman k, blood Blood Glucose: mg/dl 302 Not Available [facility] [address] [place] [address], [id number] 05/27/2023 11:19:35 05/27/19 24 05/27/2023 rapid flu (A+B) Flu negati ve Not Available [facility] [address] [place] [address], [id number] 05/27/2023 10:53:07 05/27/19 24 05/27/2023 rapid strep group A, throa t Strep negati ve Not Available [facility] [address] [place] [address], [id number] 05/27/2023 11:12:09 05/27/19 24 05/27/2023 rapid SARS CoV 2 Ag, QL IA, respi rator y speci men rapid SARS CoV 2 Ag, QL IA, respiratory specimen negati ve Not Available [facility] [address] [place] [address], [id number] 05/27/2023 10:53:06 12/24/19 24 12/24/2023 rapid flu (A+B) Flu negati ve Not Available [facility] ed [address] [place] [address], [id number] 12/24/2023 11:22:03 12/24/19 24 12/24/2023 rapid SARS CoV 2 Ag, QL IA, respi rator y speci men rapid SARS CoV 2 Ag, QL IA, respiratory specimen negati ve Not Available [facility] ed [address] [place] [address], [id number] 12/24/2023 11:22:00 Result Notes None recorded. Medical Equipment None Reported. Allergies Allergen ID Allergen Name Allergen Category Reaction Reaction Severity Criticality Documentation Date Start Date Code Code System Note Provider Name and Address Organization Details Recorded Time 4632 azithromy josephine medicatio n Not available Not available Not available 05/27/2023 42116 RxNorm Soila Langston MD [address] [place] [address],[address], [place], [address], [employer], [facility] 4 12:02:49 4633 Product containin g angiotens in-conver ting enzyme inhibitor (product) medicatio n Not available Not available Not available 05/27/2023 59748 009 SNOMED Soila Langston MD [address] [place] [address],[address], [place], [address], [employer], [facility] 4 12:02:55 4634 metformin medicatio n Not available Not available Not available 05/27/2023 6809 RxNorm Soila Langston MD [address] [place] [address],[address], [place], [address], [employer], [facility] 4 12:03:02 4635 Dilaudid medicatio n Not available Not available Not available 05/27/2023 43385 3 RxNorm AMS Soila Langston MD [address] [place] [address],[address], [place], [address], [employer], [facility] 4 12:03:32 6317 erythromy josephine medicatio n Not available Not available Not available 12/24/2023 4053 RxNorm BRANDT ROJO MD [address] [place] [address],[address], [place], [address], [facility] [employer], [facility] 4 11:27:47 6318 metoprolo l Not available [...] Not Available Not Available No t Available [employer] Ultra Test strips USE DIRECTED TO TEST [...] powder MIX AND DRINK BOTTLE DIRECTED BY [facility] t active Not Available Not Available [...] Details Last Updated DateTime 4 84 /min 60780.8 g 20 /min 98.4 [degF] 152.4 cm 98 % 98 % 137 mm[Hg] 98 mm[Hg] Not Available [facility] [employer] 4 10:52:14 Date Recorded Oxygen saturation Oxygen saturation in Arterial blood by Pulse oximetry Heart rate Body temperature Respiratory rate Systolic blood pressure Diastolic blood pressure Provider Name and Address Organization Details Last Updated DateTime 4 93 % 93 % 92 /min 98 [degF] 20 /min 190 mm[Hg] 100 mm[Hg] Not Available [facility] [employer] 4 11:12:07 Date Recorded Oxygen saturation Oxygen saturation in Arterial blood by Pulse oximetry Body height Heart rate Respiratory rate Body weight Body temperature Systolic blood pressure Diastolic blood pressure Provider Name and Address Organization Details Last Updated DateTime 4 95 % 95 % 165.1 cm 85 /min 18 /min 43373.6 4 g 97.4 [degF] 125 mm[Hg] 86 mm[Hg] Not Available [facility] [employer] 4 11:27:44 Date Recorded Heart rate Body weight Respiratory rate Body temperature Body height Oxygen saturation Oxygen saturation in Arterial blood by Pulse oximetry Systolic blood pressure Diastolic blood pressure Provider Name and Address Organization Details Last Updated DateTime 4 96 /min 45972.6 4 g 18 /min 97.9 [degF] 165.1 cm 91 % 91 % 129 mm[Hg] 71 mm[Hg] Not Available [facility] [employer] 4 17:19:19 Date Recorded Oxygen saturation Oxygen saturation in Arterial blood by Pulse oximetry Heart rate Respiratory rate Body temperature Systolic blood pressure Diastolic blood pressure Provider Name and Address Organization Details Last Updated DateTime 4 88 % 88 % 80 /min 28 /min 97.9 [degF] 122 mm[Hg] 68 mm[Hg] Not Available [facility] [employer] 4 11:18:47 Social History None [...] Diagnosis Note Soila Langston MD Main - [address] [phone] 05/27/2023 10:52:11 05/27/2023 17:26:09 Acute exacerbation of chronic obstructive pulmonary disease 271531843 J44.1 pat has tessalon alysiaes-- has not taken- advised 1 tid while ill/ was told by pcp to do duo neb q4 hr prn- 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 [id number] Zev Leger MD Main - [address] [phone] 07/26/2023 11:12:02 07/26/2023 17:20:43 Acute exacerbation of chronic obstructive pulmonary disease [id number] J44.1 This 62-year-ol d female with COPD [facility] because of increased dyspnea. She uses several inhalers and prednisone 5 mg daily. She doesn't qualify for home oxygen. I ordered a prednisone taper. She will follow-up with her PCP. The patient agreed with this plan. Low back pain [id number] M54.50 [id number] Dasha Eubanks MD [facility] [address] [place] [phone] 08/31/2023 11:27:40 09/01/2023 12:35:19 Acute exacerbation of chronic obstructive pulmonary disease [id number] J44.1 [id number] Santos Santoyo MD [facility] [address] [place] [phone] 10/19/2023 17:19:16 10/20/2023 09:43:42 Acute exacerbation of chronic obstructive pulmonary disease [id number] J44.1 [id number] BRANDT ROJO MD [facility] - [address] [phone] 12/24/2023 11:18:42 12/24/2023 14:43:17 Acute exacerbation of chronic obstructive pulmonary disease [id number] J44.1 Evaluation in the field was performed by my can handler colleague, as noted above, I provided real-time [...] the ED for further evaluation . [facility]. Rapid COVID and flu tests were negative.B MP unremarkab le. H/H 16. Allergies were verified; however, the triage note [...] with the first dose given by the can handler. -Continue Zyrtec daily-Afte r she received the [...] the ED for further evaluation . [facility]. Primary care, consider__ _ Dispositio n: [...] Mendez Member ID Guarantor Name 05/27/2023 1 [facility] - DOS ON OR AFTER 2022 - DUAL ELIGIBLE - GROUP HOME OPTIONS AND ONE CARE (MEDICARE REPLACEMENT/ADV ANTAGE - HMO) Marita Lawrence [id number] Marita Lawrence 07/26/2023 1 [facility] - DOS ON OR AFTER 2022 - DUAL ELIGIBLE - GROUP HOME OPTIONS AND ONE CARE (MEDICARE REPLACEMENT/ADV ANTAGE - HMO) Marita Lawrence [id number] Marita Lawrence 08/31/2023 1 [facility] - DOS ON OR AFTER 2022 - DUAL ELIGIBLE - GROUP HOME OPTIONS AND ONE CARE (MEDICARE REPLACEMENT/ADV ANTAGE - HMO) Marita Lawrence [id number] Marita Lawrence 10/19/2023 1 [facility] - DOS ON OR AFTER 2022 - DUAL ELIGIBLE - GROUP HOME OPTIONS AND ONE CARE (MEDICARE REPLACEMENT/ADV ANTAGE - HMO) Marita Lawrence [id number] Marita Lawrence 12/24/2023 1 [facility] - DOS ON OR AFTER 2022 - DUAL ELIGIBLE - GROUP HOME OPTIONS AND ONE CARE (MEDICARE REPLACEMENT/ADV ANTAGE - HMO) Marita Lawrence [id number] Marita Lawrence Notes Date Note Type Note Provider Name and Address Organization Details Recorded Time 05/27/2023 text/html HPI: Patient at home with known COPD. Not on oxygen at baseline. Feeling ill with increased SOB CLIENT CONSULTANT cough. O2 sat at baseline is 96% drops to 92% with exertion. .................. .................. .................. .................. .................. .................. .................. ............... CRC Nurse Triage Notes (Tashia Lazo): Comments: CRC RN DID NOT NEED FURTHER INFO .................. .................. .................. .................. .................. .................. .................. ............... Char Belt Operator Note From Cullen Joseph: Pt caox3 answers [...] home. 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 Pt [...] BGL 306mg/dl (no food or insulin today) [facility] orders albuterol neb, prednisone 40mg PO, administered [...] throat except when coughing Soila Langston MD [address] [place] [address],[address], [place], [address], [employer] 05/27/2023 12:35:05 07/26/2023 text/html CRC Nurse Triage Notes (Miko Vogt): Chief Complaints: Shortness of Breath/Dyspnea PMH: Hypertension, COPD/Asthma, Diabetes, Heart Disease Allergies: Unknown Comments: Steamfitter Supervisor verified the member's name//address and phone number. [...] emergency treatment if needed -HODA Whyte MD [address] [place] [address],[address], [place], [address], [employer] 07/30/2023 06:44:37 08/31/2023 text/html HPI: Call returned to Marita Lawrence to triage below. Reports having hx [...] in clear full sentences. 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 Pt advised of disposition, agrees to [facility] for exam as declined ER. Reviewed home care advise, ER precautions and reasons to call back. Verified contact information and allergies. .................. .................. .................. .................. .................. .................. .................. ............... CRC Nurse Triage Notes (Tashia Lazo): Comments: CRC RN DID NEED FURTHER INFO .................. .................. .................. .................. .................. .................. .................. ............... Char Belt Operator Note From Ben Delacruz: [facility] visit for female patient with difficulty breathing. [...] cough with thick white mucus. consulted with [facility] Dr Eubanks, who prescribed 40 mg of Prednisone to be given on scene with remainder of prescription called the patient's Pharmacy. Reviewed red flags for ED. patient education provided. [facility] Medication Orders: prednisone 20 mg tablet: Administered .................. .................. .................. .................. .................. .................. .................. ............... Disposition: Fulfilled Dasha Eubanks MD [address] [facility],[address], [place], [address], [email or web address] 08/31/2023 17:40:50 10/19/2023 text/html CRC Nurse Triage Notes (Miko Vogt): Reason For Request: sob/hx COPD Chief Complaints: Shortness of Breath/Dyspnea PMH: Hypertension, COPD/Asthma, Diabetes, Heart Disease Allergies: Metoprolol Comments: Steamfitter Supervisor verified the member's name//address and phone number. [...] and seek emergency treatment if needed -Kiran Vogt, RN Char Belt Operator POC Test Results from Ben Delacruz - ALS Rapid influenza antigen (19:05:46) Flu: - Rapid COVID antigen (19:05:52) COVID: - .................. .................. .................. .................. .................. .................. .................. ............... Char Belt Operator Note From Ben Delacruz: [facility] visit for female pt. Pt complains of [...] swabs run and both negative. Consulted with [facility] Dr. Santoyo who prescribed prednisone and cefpedoxime. First dose of prednisone given on scene with remainder of script sent to pharmacy. Reviewed red flags. Pt education provided. .................. .................. .................. .................. .................. .................. .................. ............... Disposition: Fulfilled Santos Santoyo MD [address] [place] [address],[address], [place], [address] [email or web address] 10/19/2023 23:50:40 12/24/2023 text/html [facility] Nurse Triage Notes (Miko Vogt): Reason For Request: Pt reporting COPD exacerbation Chief Complaints: Shortness of Breath/Dyspnea, COPD PMH: Hypertension, COPD/Asthma, Diabetes, Heart Disease Allergies: Metoprolol Comments: Steamfitter Supervisor verified the member's name//address and phone number. [...] s/s and seek emergency treatment if needed -H. Vogt, RN Char Belt Operator Organization Information for Kal Hathaway Business Legal Name: [employer] Address: [address] [place] [address], [place] [address], [employer] Supervisor: Bk COSBY No.: [id number] Char Belt Operator POC Test Results from Kal Hathaway iSTAT [...] .................. .................. .................. .................. .................. .................. ............... Char Belt Operator Note From Kal Hathaway: Dispatched to above [...] pink warm and dry, good radial pulse. [facility] contacted, ordered Chem 8, IV, Solumedrol, Covid and Flu test and Duoneb. 18g IV established, R AC, lab draw preformed, ISTAT checked, results uploaded. Covid-19 and Flu test checked, both negative. Patient started on Duoneb. 125mg Solumedrol administered IV. Patient reassessed, SPO2 still high 80s on RA, still tachypneic. [facility] updated, ordered 2g Mag IV. Patient administered 2g Mag IV. Patient reassessed with no change. [facility] updated, ordered additional Duoneb. Neb administered. Patient walked about 15 steps to bathroom, became tachypneic in the 30s. [facility] updated, recommends transport to ER for further evaluation. Patient agrees with this. 911 contacted. [place] [facility] responded. Verbal report given to [place] Char Belt Operator, took over patient care. Patient being transported to [facility]. SC8 clear. EOR. .................. .................. .................. .................. .................. .................. .................. ............... Disposition: Fulfilled BRANDT ROJO MD [address] [facility],[address], [place], [address], [employer] 12/24/2023 13:27:13 OBGyn Episode No OBEpisode recorded.
--- OUTSIDE RECORDS SUMMARY | 2024-08-01 09:58 | XMS_ITS | Encounter Summary ---
Author Organization [employer] Address [address] [place] [address] [address] [place] [address] Care Team Providers Care Screw Machine Hand Name Role Phone Name, Bobby GRADY Primary Care Provider Inga Magaña PharmD Unavailable Encounter Details Date Type Department Care Team (Late st Contact Info) Description 03/05/2022 Telephone [facility] [address] [place] [phone] Monisha Linton CNM [address] [place] [phone] Social History Tobacco Use Types Packs/Day Years [...] Info) Description 08/05/2024 11:30 AM EDT Telemedicine [facility] [address] [place] [address] [phone] Name, MD Bobby [address] [place] [phone] 09/02/2024 1:00 PM EDT Telemedicine [facility] [address] [place] [phone] Skye Melton, RN 11/02/2024 9:30 AM EDT Office Visit [facility] [address] [place] [address] Name, MD Bobby [address] [place] [address] documented as of this encounter Visit Diagnoses Not on filedocumented in this encounter Care Teams Screw Machine Hand Relationship Specialty Start Date End Date Name, MD Bobby [address] [place] [phone] PCP - General Family Medicine 06/01/15 Inga Magaña PharmD [address] [place] [phone] Pharmacist Internal Medicine 01/07/23 09/29/23 Eloina 05/13/24 documented as of this encounter
--- OUTSIDE RECORDS SUMMARY | 2024-08-01 09:58 | XMS_ITS | Encounter Summary ---
Author Organization [employer] Address [address] [place] [address] [address] [place] [address] Care Team Providers Care Underwear Finisher Name Role Phone NameBobby MD Primary Care Provider Inga Magaña PharmD Unavailable Encounter Details Date Type Department Care Team (Late st Contact Info) Description 09/01/2022 Abstract [facility] [address] [place] [phone] Bobby David MD [address] [place] [phone] Social History Tobacco Use Types Packs/Day Years [...] Info) Description 08/05/2024 11:30 AM EDT Telemedicine [facility] [address] [place] [address] [phone] Bobby David MD [address] [place] [phone] 09/02/2024 1:00 PM EDT Telemedicine [facility] [address] [place] [phone] Skye Melton RN 11/02/2024 9:30 AM EDT Office Visit [facility] [address] [place] [phone] Name, MD Bobby [address] [place] [address] documented as of this encounter Visit Diagnoses Not on filedocumented in this encounter Additional Health Concerns Assessment Noted Time PHQ-9 Depression Total Score: 0 03/11/20 22 11:47 AM EST documented as of this encounter Care Teams Underwear Finisher Relationship Specialty Start Date End Date Name, MD Bobby [address] [place] [address] PCP - General Family Medicine 06/01/15 Inga Magaña PharmD [address] [place] [phone] Pharmacist Internal Medicine 01/07/23 09/29/23 Eloina 05/13/24 documented as of this encounter
--- OUTSIDE RECORDS SUMMARY | 2024-08-01 09:58 | XMS_ITS | Encounter Summary ---
Author Organization [employer] Address [address] [place] [address] [address] [place] [address] Care Team Providers Care Loan Originator Name Role Phone Name, Bobby GRADY Primary Care Provider [phone] Inga Magaña PharmD Unavailable [phone] Reason for Visit * Reason Comments Med Refill Encounter Details Date Type Department Care Team (Late Contact Info) Description 11/18/2022 Refill [facility] [address] [place] [address] Sherly Pichardo, GEETA [address] [place] [address] Type 2 diabetes mellitus without complications (CMS/[facility]) Social History Tobacco Use Types Packs/Day Years [...] Upcoming Encounters Date Type Department Care Team ([facility] Contact Info) Description 08/05/2024 11:30 AM EDT Telemedicine [facility] [address] [place] [address] Name, MD [facility] [place] [address] 09/02/2024 1:00 PM EDT Telemedicine [address] [place] [address] Skye Melton, RN 11/02/2024 9:30 AM EDT Office Visit [facility] [address] [place], [place] [address] [address] Name, MD [facility] [place] [address] documented as of this encounter Visit Diagnoses Diagnosis Type 2 diabetes mellitus without complications (CMS/HCC) documented in this encounter Additional Health Concerns Assessment Noted Time PHQ-9 Depression Total Score: 0 03/11/20 22 11:47 AM EST documented as of this encounter Care Teams Loan Originator Relationship Specialty Start Date End Date Name, MD [facility] [place] [address] PCP - General Family Medicine 06/01/15 Inga Magaña PharmD [address] [place] [id number] Pharmacist Internal Medicine 01/07/23 09/29/23 [place] 05/13/24 documented as of this encounter
--- OUTSIDE RECORDS SUMMARY | 2024-08-01 09:58 | XMS_ITS | Clinical Summary ---
Author Organization [employer] Address [address] [place] [address] 7 [place] [address] Care Team Providers Care Inbound Sales Representative Name Role Phone Name, Bobby GRADY Primary Care Provider [phone] Allergies Active Allergy Reactions Criticality Noted Date [...] miscIndications: Type 2 diabetes mellitus without complications ([facility]) Check BG twice daily 100 each 11 [...] mellitus with other specified complication, unspecified whether roasterman insulin use ([facility]/HCC) USE DIRECTED FIVE TIMES DAILY 200 each 11 Active fluticasone (Flonase) 50 MCG/ACT nasal spray INSTILL 2 SPRAYS IN EACH NOSTRIL ONCE DAILY 16 g 3 Active celecoxib (CeleBREX) 200 MG capsule TAKE 1 CAPSULE BY MOUTH TWICE DAILY WITH FOOD AND A FULL GLASS OF WATER NEEDED FOR PAIN Active dulaglutide (Trulicity) 1.5 MG/0.5ML solution pen-injectorIndi cations:Type 2 diabetes with complication ([facility]),COPD exacerbation ([facility]) Inject 1.5 mg under the skin 1 (one) time per week. 2 mL Active empagliflozin (Jardiance) 10 MG Take 1 tablet (10 mg) by mouth Once per day. 30 tablet 024 2024 Active insulin glargine (Lantus SoloStar) 100 UNIT/ML penIndications:A therosclerosis of coronary artery of [place] heart, unspecified vessel or lesion type, unspecified whether angina present INJECT 35 UNITS SUBCUTANEOUSLY TWICE DAILY IN THE MORNING AND IN THE EVENING 15 mL 5 Active OneTouch Ultra Test test stripIndications :Type 2 diabetes mellitus without complications ([facility]) USE DIRECTED TO TEST BLOOD SUGAR THREE TIMES DAILY 50 strip 5 Active SM Calcium Citrate+Vit D3 Max tablet TAKE 1 TABLET BY MOUTH 2 TIMES DAILY 60 tablet 3 Active ipratropium-albu terol (Duo-Neb) 0.5-2.5 mg/3 mL nebulizer solutionIndicati ons:Chronic obstructive pulmonary disease, unspecified ([facility]/HCC) INHALE 1 AMPULE USING A NEBULIZER FOUR [...] if needed for muscle spasms. 45 tablet Active omeprazole (PriLOSEC) [address] capsuleIndicatio ns:Lumbar radiculopathy TAKE 1 CAPSULE BY MOUTH TWICE DAILY 30 MINUTES BEFORE MEALS 60 capsule 025 Active docusate sodium (Colace) 100 MG capsuleIndicatio ns:Drug-induced constipation TAKE 1 CAPSULE BY MOUTH EVERY DAY AT BEDTIME NEEDED 90 capsule 3 Active pregabalin (Lyrica) 100 MG capsule 1 CAPSULE two TIMES DAILY 60 capsule Active Combivent Respimat 20-100 MCG/ACT inhalerIndicatio ns:Chronic obstructive pulmonary disease, unspecified COPD type (CMS/HCC) INHALE 1 PUFF 4 TIMES A DAY, MAY TAKE ADDITIONAL PUFFS NEEDED. (MAX OF 6 PUFFS PER DAY) 4 g 5 Active oxyCODONE-acetam inophen (Percocet) 7.5-325 MG tabletIndication s:Chronic low back pain with sciatica, sciatica laterality unspecified, unspecified back pain laterality Take 1 tablet by mouth every 6 (six) hours if needed for severe pain for up to 28 days. TAKE 1 TABLET BY MOUTH EVERY 6 HOURS NEEDED FOR SEVERE PAIN Do not start before July 29, 2024. 112 tablet 025 2024 Active Combivent Respimat 20-100 MCG/ACT inhalerIndicatio ns:Chronic obstructive pulmonary disease, unspecified COPD type (CMS/HCC) INHALE 1 PUFF 4 TIMES A DAY, MAY TAKE ADDITIONAL PUFFS NEEDED. (MAX OF 6 PUFFS PER DAY) 4 g 5 024 2024 Discontinued doxycycline (Vibra-Tabs) 100 MG tabletIndication s:Pneumonia of [...] for 5 days. 10 tablet 025 2024 oxyCODONE-acetam inophen (Percocet) 7.5-325 MG tabletIndication s:Chronic low back pain with sciatica, sciatica laterality unspecified, unspecified back pain laterality Take 1 tablet by mouth every 6 (six) hours if needed for severe pain for up to 28 days. TAKE 1 TABLET BY MOUTH EVERY 6 HOURS NEEDED FOR SEVERE PAIN 112 tablet 025 2024 Discontinued(R eobenson (will not trigger notification to Pharmacy)) Active Problems Problem Noted Date Diagnosed Date [...] neoplasm o f colon 09/30/2023 CAD in [place] artery 09/02/2023 Opioid dependence, daily use 07/27/2023 [...] Encounters Date Type Department Care Team Description 07/27/2024 Refill [facility] [address] [place] [address] Bobby David MD Chronic low back pain with sciatica, sciatica laterality unspecified, unspecified back pain laterality 07/20/2024 Refill [facility] [address] [place] [address] Sherly Pichardo FNP 07/14/2024 Telephone [facility] [address] [place] [address] Cem Berrios MA september recalls 07/06/2024 11:00 AM EDT Office Visit [facility] [address] [place] [address] Bobby David MD Type 2 diabetes mellitus with other specified complication, unspecified whether roasterman insulin use ([facility]) (Primary Dx); Chronic obstructive pulmonary disease, unspecified COPD type ([facility]); Abnormal chest x-ray; History of pneumonia 07/06/2024 Travel 07/05/2024 Telephone [facility] [address] [place] [address] Sherly Pichardo, TERMINAL GAUGER SUPERVISOR MRI LUMBAR 07/05/2024 Telephone [facility] [address] [place] [address] Sherly Pichardo, TERMINAL GAUGER SUPERVISOR MRI LUMBAR 07/04/2024 Telephone [facility] [address] [place] [address] Bobby David MD Durable Medical Equipment 07/03/2024 Refill [facility] [address] [place] [address] Bobby David MD Chronic obstructive pulmonary disease, unspecified COPD type ([facility]/HCC) 06/30/2024 Refill [facility] [address] [place] [address] Bobby David MD Chronic low back pain with sciatica, sciatica laterality unspecified, unspecified back pain laterality 06/29/2024 Telephone [facility] [address] [place] [address] Sherly Pichardo TERMINAL GAUGER SUPERVISOR MRI LUMBAR SPINE ORDER 06/24/2024 Telephone [facility] [address] [place] [address] Mildred Eason LPN Prior Authorization 06/23/2024 Telephone [facility] [address] [place] [phone] Sherly Pichardo, TERMINAL GAUGER SUPERVISOR MRI LUMBAR SPINE ORDER 06/22/2024 3:30 PM EDT Office Visit [address] [address] Basia Herndon MD Pneumonia of right middle lobe due to infectious organism (Primary Dx); Type 2 diabetes mellitus with other specified complication, unspecified whether roasterman insulin use ([facility]); Cough, unspecified type; Drug-induced constipation; Dietary counseling; Exercise counseling; Overweight 06/22/2024 Travel 06/22/[address] [address] Bobby David MD Lumbar radiculopathy 06/20/2024 Orders Only [facility] [address] [place] [address] Sherly Pichardo, TERMINAL GAUGER SUPERVISOR 06/20/2024 Telephone [facility] [address] [place] [address] Gordy Pichardole, TERMINAL GAUGER SUPERVISOR Results (Lumbar x-ray) 06/17/2024 Orders Only [facility] [address] [place] [address] PhalGordy andersenle, TERMINAL GAUGER SUPERVISOR Lumbar radiculopathy (Primary Dx) 06/16/2024 Telephone [facility] [address] [place] [address] Marino Sherly, TERMINAL GAUGER SUPERVISOR TC: Visit Follow Up Plan 06/15/2024 9:45 AM EDT Office Visit [address] [address] Sherly Pichardo, TERMINAL GAUGER SUPERVISOR Lumbar post-laminectomy syndrome (Primary Dx); Chronic obstructive pulmonary disease, unspecified COPD type ([facility]); Lumbar spondylosis; Urinary incontinence, unspecified type 06/15/[address] [phone] Bobby David MD Durable Medical Equipment 06/15/2024 Telephone [facility] [address] [place] [address] Skye Melton, RN SPLIT AND DRUM ROOM SUPERVISOR Agreement and BPI Forms 06/15/2024 Travel 06/14/2024 Telephone [facility] [address] [place] [address] Skye Melton, RN Reschedule SPLIT AND DRUM ROOM SUPERVISOR Renewal appt 06/17/24 06/13/2024 Telephone [facility] [address] [place] [phone] Bobby David MD ER Follow-up 06/12/2024 Orders Only [facility] External Provider, [facility] 06/06/2024 Refill [facility] [address] [place] [address] Bobby David MD 05/31/2024 1:15 PM EST Office Visit [facility] [address] [place] [phone] Bobby David MD COPD (chronic obstructive pulmonary disease) with acute bronchitis (CMS/HCC) (CMS/HCC) (Primary Dx); Type 2 diabetes with complication (CMS/HCC); Rash 05/31/2024 Refill [facility] [address] [place] [address] Bobby David MD 05/28/2024 Refill [facility] [address] [place] [address] Bobby David MD 05/23/2024 Refill [facility] [address] [place] [address] Bobby David MD Chronic low back pain with sciatica, sciatica laterality unspecified, unspecified back pain laterality 05/18/2024 Telephone [facility] [address] [place] [address] Bobby David MD FYI 05/17/2024 Patient Outreach [facility] [address] [place] [address] Bobby David MD Transition Of Care (Tcm) (HDF scheduled. /) 05/17/2024 Telephone [facility] [address] [place] [phone] Bobby David MD Hospital Follow-up 05/13/2024 Telephone [facility] [address] [place] [address] Bobby David MD 05/09/2024 Telephone [facility] [address] [place], [place] [phone] NameBobby MD Homecare Delivered (Adult size pull on med) from Last 3 Months Immunizations Name Administration [...] Frequency of Binge Drinking Not on file 0705/2023 Score 0 09/30/2023 Depression Answer Date Recorded [...] Sign Reading Time Taken Comments Blood Pressure 143/83 07/06/2024 11:00 AM EDT Pulse 83 07/06/2024 11:00 AM EDT Temperature 36.6 ??C (97.8 ??F) 07/06/2024 11:00 AM E DT Respiratory Rate 12 07/06/2024 11:00 AM EDT Oxygen Saturation 98% 07/06/2024 11:00 AM EDT Inhaled Oxygen Concentration - - Weight 76.8 kg (169 lb 6.4 oz) 07/06/2024 11:00 AM EDT Height 165.1 cm (5' 5 ) 07/06/2024 11:00 AM EDT Body Mass Index 28.19 07/06/2024 11:00 AM EDT Plan of Treatment Upcoming Encounters Date Type Department Care Team (Late st Contact Info) Description 08/05/2024 11:30 AM EDT Telemedicine [address] [address] NameBobby MD [address] [place] [address] 09/02/2024 1:00 PM EDT Telemedicine [address] [address] Skye Melton RN 11/02/2024 9:30 AM EDT Office Visit [address] [address] Name, MD Bobby [address] [place] [address] Health Maintenance Due Date Last Done Comments [...] Lipid Panel 12/28/2024 12/29/2023, 08/28/2021 Tobacco Screening 07/06/2025 07/06/2024 Colonoscopy 07/16/2025 07/16/2022 Colorectal Cancer Screening 07/16/2025 [...] Name Priority Date/Time Associated Diagnosis Comments POCT GLUCOSE Routine 07/06/2024 11:06 AM EDT Type 2 diabetes mellitus with other specified complication, unspecified whether roasterman insulin use (CMS/[facility]) XR CHEST 2 VIEWS Routine 07/06/2024 9:5 8 AM EDT Pneumonia of right middle lobe due to infectious organism POCT INFLUENZA B (ID NOW RAPID MOLECULAR) Routine 06/22/2024 4:41 PM EDT Cough, unspecified type POCT INFLUENZA A (ID NOW RAPID MOLECULAR) Routine 06/22/2024 4:41 PM EDT Cough, unspecified type POCT RAPID COVID ANTIGEN Routine 06/22/2024 4:23 PM EDT Cough, unspecified type POCT GLYCATED HEMOGLOBIN, TOTAL Routine 06/22/2024 3:58 PM EDT Type 2 diabetes mellitus with other specified complication, unspecified whether long-term insulin use (CMS/HCC) POCT GLUCOSE Routine 06/22/2024 3:57 PM EDT Type 2 diabetes mellitus with other specified complication, unspecified whether long-term insulin use (CMS/HCC) XR CHEST 2 VIEWS [...] complication (CMS/HCC) Atherosclerosis of coronary artery of [place] heart, unspecified vessel or lesion type, unspecified whether angina present Pain of toe of left foot LIPID PANEL, STANDARD Routine 12/29/2023 11:17 AM EDT Type 2 diabetes with complication (CMS/HCC) Atherosclerosis of coronary artery of [place] heart, unspecified vessel or lesion type, unspecified [...] Relevant to Health Maintenance Results * POCT Glucose (07/06/2024 11:06 AM EDT) Only the most recent of3 resultswithin the time period is included. Glucose Blood, POC 140 60 - 200 mg/dL QC Media Lot # [id number] Lot# Expiration Date 82, Blood Capillary blood specimen / Unknown 07/06/2024 11:06 AM EDT us Bobby Name MD POINT OF CARE TEST ENTER/EDIT OR DERABLES Final Result * XR Chest 2 Views (07/06/2024 9:58 AM EDT) Only the most recent of2 resultswithin the time period is included. Anatomical Region Laterality Modality Chest Radiographic Ludivina ging 07/06/2024 9:58 AM EDT Narrative 07/06/2024 9:59 AM EDT ? [facility] ?[address] ?[place] [address] ?XRay Report ? Signed ? Patient: Ashley [place],Marita M ?MR#: MM ?? [id number] ? : 1960 ?Acct:[id number] ? Age/Sex: 63 / F ?ADM Date: 07/05/24 ? Loc: HO.XRAY ? Attending Dr: Basia Herndon MD ? Ordering Physician: Basia Herndon ?? Date of Service: 07/05/24 ?? Procedure(s): XR chest 2V ?? Accession Number(s): [id number] ? cc: Basia Herndon; Name,Bobby GRADY ? CLINICAL HISTORY: ongoing pneumonia symtpoms ? Exam: PA and lateral views of the chest. ? Comparison: June 20, 2024. ? Findings: ? Lungs are well inflated. ?? Cardiac silhouette is within normal limits. ?? Increasing consolidation within the right middle lobe. ?? Lungs are otherwise clear. ? Impression: ? Worsening consolidation of the right middle lobe most characteristic of ?? persistent pneumonia. ? This document has been electronically signed by: Geoff Brown MD on ?? 07/06/2024 09:58:40 ? Dictated By: ?Geoff Brown MD ? Signed By: ?<Electronically signed by Geoff Brown MD in OV> ? 07/06/2459 ? DD/ 7 ? TD/TT: 07/06/24957 ? Burr Grinder: ? Procedure Note Rogelio, Image - 07/06/2024 [place] [address] XRay Report Signed Patient: Marita Zapata MMR#: [id number] : 1960Acct:[id number] Age/Sex: 63 / FADM Date: 07/05/24 Loc: [facility] Attending Dr: Basia Herndon MD Ordering Physician: Basia Herndon Date of Service: 07/05/24 Procedure(s): XR chest 2V Accession Number(s): [id number] cc: Basia Herndon; Name,Bobby GRADY CLINICAL HISTORY: ongoing pneumonia symtpoms Exam: PA and lateral views of the chest. Comparison: June 20, 2024. Findings: Lungs are well inflated. Cardiac silhouette is within normal limits. Increasing consolidation within the right middle lobe. Lungs are otherwise clear. Impression: Worsening consolidation of the right middle lobe most characteristic of persistent pneumonia. This document has been electronically signed by: Geoff Brown MD on 07/06/2024 09:58:40 Dictated By: Geoff Brown MD Signed By: <Electronically signed by Geoff Brown MD in OV> 07/06/24958 DD/ 7 TD/TT: 07/06/24957 Burr Grinder: Basia Herndon MD IMG XR PROCEDURES Edited Resul t - Final * POCT Rapid Influenza B RYDER ID NOW (06/22/2024 4:41 PM EDT) Influenza B Negative Negative, Indeterminate [facility] QC Media Lot # [id number] [facility] Lot# Expiration Date [facility] Swab 06/22/2024 4:41 PM EDT Result [facility] Basia Herndon MD POINT OF CARE TEST ENTER/EDIT ORDERABLES Final Result Performing Organization Address [facility] Co de Phone Number [facility] [address] [place] [phone] * POCT Rapid Influenza A RYDER ID NOW (06/22/2024 4:41 PM EDT) Influenza A Negative Negative, Indeterminate [facility] QC Media Lot # [id number] [facility] Lot# Expiration Date [facility] Swab 06/22/2024 4:41 PM EDT Basia Herndon MD POINT OF CARE TEST ENTER/EDIT ORDERABLES Final Result Performing Organization Address [facility] Co de Phone Number [facility] [address] [place] [phone] * POCT Rapid Covid-19 BinaxNOW (06/22/2024 4:23 PM EDT) Pathologist [facility] Rapid COVID Ag Negative QC Media Lot # [id number] Lot# Expiration Date Swab 06/22/2024 4:23 PM EDT Basia Herndon MD POINT OF CARE TEST ENTER/EDIT ORDERABLES Final Result * (ABNORMAL) POCT HGB A1C (06/22/2024 3:58 PM EDT) Only the most recent of2 resultswithin the time period is included. Pathologist [facility] Hemoglobin A1C 8.4(A) 4.0 - 6.0 % QC Media Lot # [id number] Lot# Expiration Date Blood 06/22/2024 3:58 PM EDT Basia Herndon MD POINT OF CARE TEST ENTER/EDIT ORDERABLES Final Result * POCT Urinalysis (06/15/2024 11:33 AM EDT) Pathologist [facility] Color, UA Yellow Clarity, UA Clear Glucose, UA 2+ 125++ Bilirubin, UA Negative Ketones, UA Negative Spec Grav, UA 1.020 Blood, UA Negative Negative, None Detected pH, UA 5.5 Protein, UA Negative Urobilinogen, UA 0.2 Leukocytes, UA Negative Negative, Rare, Trace Nitrite, UA Negative Negative, None Detected Appearance, UA clear QC Media Lot # [id number] Lot# Expiration Date Urine 06/15/2024 11:3 3 AM EDT Sherly Pichardo TERMINAL GAUGER SUPERVISOR POINT OF CARE TEST ENTER/EDIT ORDERABLES Final Result * XR Lumbar Spine 2-3 Views (06/12/2024 6:34 PM EDT) Anatomical Region Laterality Modality Spine, L-spine Radiographic Ludivina ging 06/12/2024 6:34 PM EDT Narrative 06/12/2024 6:36 PM EDT ? [facility] ?[address] ?[place] [address] ?XRay Report ? Signed ? Patient: Ashley [place],Marita M ?MR#: MM ?? [id number] ? : 1960 ?Acct:[id number] ? Age/Sex: 63 / F ?ADM Date: 06/12/24 ? Loc: HO.ED ? Attending Dr: ? Ordering Physician: Catalina Kelly ?? Date of Service: 06/12/24 ?? Procedure(s): XR lumbar spine 2-3V ?? Accession Number(s): [id number] ? cc: Frankie,Bobby GRADY; Catalina Kelly ? CLINICAL HISTORY: severe lower back pain ? 3 views lumbar spine ? Comparison: MR/ID - MR LUMBAR SPINE WO CON - [...] DD/ 1834 ? TD/TT: 06/12/24 1834 ? Burr Grinder: ? Procedure Note Elie Mercado - 06/12/[address] [address] XRay Report Signed Patient: AshleyKishor Blancoe [facility]#: MM [id number] : 1960Acct:[id number] Age/Sex: 63 / FADM Date: 06/12/24 Loc: .ED Attending Dr: Ordering Physician: Catalina Kelly Date of Service: 06/12/24 Procedure(s): XR lumbar spine 2-3V Accession Number(s): [id number] cc: Name,Bobby GRADY; Catalina Kelly CLINICAL HISTORY: severe lower back pain 3 views lumbar spine Comparison: MR/ID - MR LUMBAR SPINE WO CON - [...] in OV> 06/12/241834 DD/ 33 TD/TT: 06/12/241833 Burr Grinder: [facility] External Provider IMG XR PROCEDURES Final Result * (ABNORMAL) Albumin, Random Urine W/Creatinine (12/29/2023 11:20 AM EDT) Creatinine, Urine 157.96 mg/dL [facility] Microalbumin Urine 47.0 mg/L H [facility] Microalbum Creatinine Ratio Ur 29.7(H) <30 ug/mg cr [facility] Comment:Albumin/Creatinine R atio Reference Ranges: Normal: < 30 ug/mg creatinine Microalbuminuria: 30 - 300 ug/mg creatinineClinical Albuminuria: > 300 ug/mg creatinine Urine (Urine, Random) 12/29/2023 11:20 AM EDT 12/29/2023 1:01 PM EDT us Bobby David MD LAB URINE ORDERABLES Final Resul t Performing Organization Address [facility] Co de Phone Number [facility] [address] [place] [phone] * (ABNORMAL) Lipid Panel, Standard (12/29/2023 11:17 AM EDT) Triglycerides 172(H) <150 mg/dL [facility] Comment:Desirable Triglyceri de: less than [...] 190 mg/dL HDL Cholesterol 45 >40 mg/dL [facility] Comment:Desirable HDL: great er than 40 mg/dL Note: This HDL assay may give artificially low results in patients with liver disease. Blood Venous blood specimen / Unknown 12/29/2023 11:17 AM EDT 12/29/2023 1:03 PM EDT us Bobby David MD LAB BLOOD ORDERABLES Final Resul t Performing Organization Address City/[facility]/ZIP Co de Phone Number [facility] [address] [place] [address] [phone] * (ABNORMAL) Hm Colonoscopy (07/16/2022) Colonoscopy Abnormal( A) Normal Comment:repeat in 3-5 yrs us Historical Provider HEALTH MAINTENANCE Final Result * Mammography Report 1 (04/24/2021 10:00 AM EST) Anatomical Region Laterality Modality Breast Bilateral Mammography 04/24/2021 10:0 0 AM EST Narrative 04/24/2021 4:52 PM EST Refer to the Notes tab for result details [facility] Procedure: Mammography Report 1 Procedure Note Provider, Historical, MD - 06/22/2022 Refer to the Notes tab for result details [facility] Procedure: Mammography Report 1 us Bobby Name IMGina BI PROCEDURES Final Result * Hm Pap Smear (02/27/2021 10:30 AM EST) HM Pap smear Perfomed Historical Provider HEALTH MAINTENANCE Final Result * THINPREP TIS PAP AND HPV mRNA E6/E7 REFLEX HPV 16,18/45 (02/27/2021 10:24 AM EST) Clinical Information: Postmenopausal [facility] COMMENT SEE COMMENT [facility] ON [...] has been evaluated with computer assisted technology. [facility] Metalizer: SEE COMMENT [facility] Comment: CULP, CT(ASCP) CT screening location: [address] ??[id number] HPV nRNA E6/E7 Not Detected Not Detected [facility] Comment: Methodology: Precision Mechanical Instrument Maker-Mediated Amplification This assay detects E6/E7 viral messenger RNA (mRNA) from 14 high-risk HPV types (16,18,31,33,35,39,45,51,52,56,58,59,66,68). ? The analytical performance characteristics of this assay have been determined by [employer]. The modifications have not been cleared or approved by the FDA. This assay has been validated pursuant to the CLIA regulations and is used for clinical purposes. ?? For additional information, please refer to http://education.[employer]/faq/HNQ025r4 (This link if provided for information/ educational [...] Linton CNM LAB PATHOLOGY ORDERABLES Final Result [facility] [address] from Last 3 Months or Most Recently Relevant to Health Maintenance Insurance [place]IL[place] [id number] Care Teams Inbound Sales Representative Relationship Specialty Start Date End Date Name, MD Bobby [address] [place] [phone] PCP - General Family Medicine 06/01/15 Eloina 05/13/24
--- OUTSIDE RECORDS SUMMARY | 2024-08-01 09:58 | XMS_ITS | Encounter Summary ---
Author Organization [employer] Address [address] [place] [address] [address] [place] [address] Care Team Providers Care Woodenware Assembler Name Role Phone Name, Bobby GRADY Primary Care Provider [phone] Inga Magaña PharmD Unavailable [phone] Reason for Visit * Reason Comments Med Refill Encounter Details Date Type Department Care Team (Late st Contact Info) Description 10/03/2022 Refill [facility] [address] [place] [address] Name, MD Bobby [address] [place] [address] Lumbar radiculopathy Social History Tobacco Use Types [...] Description 08/05/2024 11:30 AM EDT Telemedicine [address] [address] Name, MD Bobby [address] [place] [id number] 09/02/2024 1:00 PM EDT Telemedicine [address] [address] Skye Melton, HODA 11/02/2024 9:30 AM EDT Office Visit [address] [address] Name, MD Bobby [address] [place] [id number] documented as of this encounter Visit Diagnoses Diagnosis Lumbar radiculopathy Thoracic or lumbosacral neuritis or radiculitis, unspecified documented in this encounter Additional Health Concerns Assessment Noted Time PHQ-9 Depression Total Score: 0 03/11/20 11:47 AM EST documented as of this encounter Care Teams Woodenware Assembler Relationship Specialty Start Date End Date Name, MD Bobby [address] [place] [id number] PCP - General Family Medicine 06/01/15 Inga Magaña PharmD [address] [place] [id number] Pharmacist Internal Medicine 01/07/23 09/29/23 Elo[place] 05/13/24 documented as of this encounter
--- OUTSIDE RECORDS SUMMARY | 2024-08-01 09:58 | XMS_ITS | Encounter Summary ---
Author Organization [employer] Address [address] [facility] [address] [place] [address] Care Team Providers Care Assembler Carbon Brushes Name Role Phone Name, Bobby GRADY Primary Care Provider [phone] Reason for Visit * Reason Onset Date Comments Med Refill 07/27/2024 Encounter Details Date Type Department Care Team (Late st Contact Info) Description 07/27/2024 Refill [facility] [address] [place], [place] [id number] Name, MD Bobby [address] [place] [address] Chronic low back pain with sciatica, sciatica [...] as of this encounter Miscellaneous Notes * Addendum Note - Di Campos RN - 07/28/2024 9:34 AM EDTAddended by: DI CAMPOS on: 07/28/2024 09:34 AM Modules accepted: Orders * Telephone Encounter - Di Campos RN - 07/28/2024 9:31 AM EDT [facility]pat checked by movie writer on 07/28/24. Pt picked up a 28 day supply of oxyCODONE- acetaminophen (Percocet) 7.5-325 MG tablet on 07/01/24. Pt not due for refill until 07/29/24. Medication pended to PCP with a starting date of 07/29/24 for review. Message forwarded to PCP to review and advise. * Telephone Encounter - Di Campos RN - 07/27/2024 11:53 AM EDT [facility]pat checked by movie writer on 07/27/24. Pt picked up a 28 day supply of oxyCODONE- acetaminophen (Percocet) 7.5-325 MG tablet on 07/01/24. Pt not due for refill until 07/29/24. Message forwarded to [facility] nurses box for 07/28/24 to review Masspat and pend medication to PCP. * Telephone Encounter - Shahnaz Dickerson LPN - 07/27/2024 11:32 AM EDT Received request on oxyCODONE-acetaminophen (Percocet) 7.5-325 MG tablet documented in this encounter Plan of Treatment Upcoming Encounters Date Type Department Care Team (Late st Contact Info) Description 08/05/2024 11:30 AM EDT Telemedicine [address] [address] NameBobby MD [address] [place] [address] 09/02/2024 1:00 PM EDT Telemedicine [address] [address] Skye Melton RN 11/02/2024 9:30 AM EDT Office Visit [address] [address] NameBobby MD [address] [place] [id number] documented as of this encounter Goals Goal [...] documented as of this encounter Care Teams Assembler Carbon Brushes Relationship Specialty Start Date End Date Name, MD Bobby [address] [place] [address] PCP - General Family Medicine 06/01/15 Elo[place] 05/13/24 documented as of this encounter
--- OUTSIDE RECORDS SUMMARY | 2024-08-01 09:58 | XMS_ITS | Data Portability ---
Author Organization [facility], Main Office Address [address] [place] [address] [address] [place] [address] Care Team Providers Care Assembler Product Name Role Phone [facility] OTHER NAME, MOHINI Primary Care Provider Assessment Encounter Date Assessment Date Assessment LastModified by Organization Details LastModified Time 05/03/2024 05/03/2024 Labs 04/27:Na 129-K 4.0-Bun 38-Cr 0.7-wbc 15.9-hgb 15.2- hct 45-plt 240 [email or web address] Not available 05/03/2024 18:08:16 05/05/2024 05/05/2024 Labs 04/27:Na 129-K 4.0-Bun 38-Cr 0.7-wbc 15.9-hgb 15.2- hct 45-plt 240 [email or web address] Not available 05/05/2024 12:09:46 05/11/2024 05/11/2024 Labs [...] exacerbatio n of chronic obstructive pulmonary disease 499437808 Active 2024 Not Available [facility] 5 13:13:30 Pneumonia caused by Influenza A virus 100319841 Active 2024 Not Available [facility] 5 12:06:26 Pneumonia caused by respiratory syncytial virus 066014070 Active 2024 Not Available [facility] 5 12:06:27 Type 2 diabetes mellitus 86428307 Active 2024 Not Available [facility] 5 12:09:46 Essential hypertensio n 12473051 Active 2024 Not Available [facility] 5 12:10:17 Hypothyroid ism 59882181 Active 2024 Not Available [facility] 5 12:10:48 Gastroesoph ageal reflux disease without esophagitis 762161786 Active 2024 Not Available [facility] 12:11:49 Primary gout 26826058 Active 2024 Not Available [facility] 5 12:11:50 Muscle weakness 27297578 Active 2024 Not Available [facility] 5 09:55:06 Unsteady when standing 296343047 Active 2024 Not Available [facility] 5 09:56:09 Difficulty walking 200590901 Active 2024 Not Available [facility] 5 09:56:40 Chronic obstructive pulmonary disease 38878642 Active 2024 GEETA KWOK [address] [facility] [facility], [address], [place], [address] , [facility] 5 14:52:55 Leukocytosi s 294118626 Active 2024 from steriod use MIGUE BROOKSRD, [facility] [address], [address], [place], [address] , [facility] 5 14:54:46 Coronary arterioscle rosis 00437763 Active 2024 MIGUEANNETTE BRISENO, [facility] [address] [facility], [address], [place], [address] , [facility] 5 15:05:30 Gout 87270743 Active 2024 MIGUEANNETTE BRISENO, [address], [address], [place], [address] , [facility] 5 15:09:53 Allergic rhinitis 24493431 Active 2024 MIGUE BRISENO, [facility] [address] [facility], [address], [place], [address] , [facility] 5 15:17:53 Smoker 41132178 Active 2024 MIGUE BRISENO, [facility] [address] [facility], [address], [place], [address] , [facility] 5 15:27:03 Uncomplicat ed asthma 810811852 Active 2024 Not Available [facility] 5 14:07:57 Old myocardial infarction 0639285 Active 2024 Not Available [facility] 5 14:08:17 Obstructive sleep apnea syndrome 05205960 Active 2024 Not Available [facility] 5 14:09:00 Disorder of nervous system due to type 2 diabetes mellitus 018076278 Active 2024 Not Available [facility] 5 14:09:32 Problem Notes None recorded. Medical Equipment None Reported. Allergies Allergen ID Allergen Name Allergen Category Reaction Reaction Severity Criticality Documentation Date Start Date Code Code System Note Provider Name and Address Organization Details Recorded Time 71047 Product containin g angiotens in-conver ting enzyme inhibitor (product) medicatio n angioedem a severe Not available 04/28/20242024 71680 009 SNOMED Not Available [facility] 15:23:36 80742 enalapril Not available Not available Not available high 04/28/20242017 3827 RxNorm Other react ion(s ): Anaph ylaxi s Chiquita Guardado MD [address] [place] [address], [address], [place], [address], [facility] 5 17:30:53 93683 metformin medicatio n Not available Not available Not available 04/28/20242024 6809 RxNorm Not Available [facility] 5 15:22:33 61875 hydromorp cb medicatio n Not available Not available high 04/28/20242022 3423 RxNorm Other react ion(s ): TINGL ING, PT DOES NOT LIKE THE FEELI NG MED GIVES HER Chiquita Guardado MD [address] [facility], [address], [place], [address], [facility] 5 17:31:40 85395 azithromy josephine medicatio n Not available Not available Not available 05/03/2024 43679 RxNorm Chiquita Guardado MD [address] [place] [address], [address], [place], [address], [facility] 5 17:30:27 75741 erythromy josephine medicatio n anaphylax is Not available high 05/03/20242010 4053 RxNorm Other react ion(s ): Hives /Urti caria , pustu les over entir e body, Unkno wn Other React ion(s ): Unkno wn Chiquita Guardado MD [address] [place] [address], [address], [place], [address], [facility] 5 17:31:13 29141 lisinopri l medicatio n Not available Not available Not available 05/03/2024 24014 RxNorm Chiquita Guardado MD [address] [place] [address], [address], [place], [address], [facility] 17:31:53 65366 metoprolo l Not available Not available Not available Not available 05/03/2024 6918 RxNorm Chiquita Guardado MD [address] [place] [address] [address], [place], [address], [facility] 17:32:14 Medications Name Sig Start Date Stop Date [...] Updated DateTime 5 165.1 cm 27.1 kg/m2 03595.1 2 g 78 /min 18 /min 97.5 [degF] 95 % 95 % 124 mm[Hg] 62 mm[Hg] Chiquita Guardado MD [address] [facility] [address], [place], [address] , [facility] 5 17:39:40 Date Recorded Body height Heart rate Respiratory rate Body temperature Oxygen saturation Oxygen saturation in Arterial blood by Pulse oximetry Systolic blood pressure Diastolic blood pressure Provider Name and Address Organization Details Last Updated DateTime 5 165.1 cm 86 /min 18 /min 97.5 [degF] 96 % 96 % 129 mm[Hg] 78 mm[Hg] JOHAN VU NP [address] [facility] [address], [place], [address] , [facility] 5 12:09:17 Date Recorded Body height Body temperature Respiratory rate Heart rate Oxygen saturation Oxygen saturation in Arterial blood by Pulse oximetry Provider Name and Address Organization Details Last Updated DateTime 5 165.1 cm 97.4 [degF] 20 /min 72 /min 95 % 95 % GEETA KWOK [address] [facility], [address], [place], [address], [facility] 5 16:23:28 Date Recorded Body height Heart rate Respiratory rate Body temperature Oxygen saturation Oxygen saturation in Arterial blood by Pulse oximetry Systolic blood pressure Diastolic blood pressure Provider Name and Address Organization Details Last Updated DateTime 165.1 cm 80 /min 20 /min 97.4 [degF] 95 % 95 % 155 mm[Hg] 65 mm[Hg] JOHAN VU NP [address] [facility], [address], [place], [address], [facility] 5 10:33:52 Date Recorded Body height Respiratory rate Oxygen saturation Oxygen saturation in Arterial blood by Pulse oximetry Provider Name and Address Organization Details Last Updated DateTime 05/04/2024 165.1 cm 20 /min 95 % 95 % GEETA KWOK [address] [facility], [address], [place], [address], [facility] 16:47:12 Social History Question Answer Notes LastModified by Organization Details LastModified Time Tobacco Smoking Status Former Smoker quit 2017, then started again, now none x 2 months. Chiquita Guardado MD [address] [facility], [address], [place], [address], [facility] 05/03/2024 22:40:28 Do You Have An Advance Directive? Yes Information not available 05/01/2024 What Is Your Level Of Alcohol Consumption? None Information not available 05/01/2024 What Is Your Code Status? Full Code Information not available 05/01/2024 Where Do You Live? [place] With Information not available 05/03/2024 Legal Guardian? No Informati on not available 05/03/2024 Do You Have A Medical Power Of Currency Exchange Specialist? Yes Information not available 05/03/2024 What Was [...] Details Recorded Time Tdap 0 completed Samuel Felipe-Malik [facility] 04/29/2024 12:14:00 Tdap 3 completed Samuel Felipe-Malik [facility] 04/29/2024 12:14:06 Pneumococcal conjugate PCV 13 3 completed Samuel Felipe-Malik [facility] 04/29/2024 12:14:27 pneumococcal polysaccharide PPV23 0 completed Samuel Felipe-Malik [facility] 04/29/2024 12:14:43 influenza, unspecified formulation 1 completed Samuel Bashasebastian-Malik [facility] 04/29/2024 12:15:03 influenza, unspecified formulation 2 completed Samuel Bashasebastian-Malik [facility] 04/29/2024 12:15:20 influenza, unspecified formulation 3 completed Samuel Felipe-Malik [facility] 04/29/2024 12:15:25 influenza, unspecified formulation 4 completed Samuel Felipe-Malik [facility] 04/29/2024 12:15:30 SARS-COV-2 (COVID-19) vaccine, UNSPECIFIED 1 completed Samuel Felipe-Malik [facility] 04/29/2024 12:16:07 SARS-COV-2 (COVID-19) vaccine, UNSPECIFIED 1 completed Samuel Felipe-Malik [facility] 04/29/2024 12:16:12 SARS-COV-2 (COVID-19) vaccine, UNSPECIFIED 1 completed Samuel Chappell [facility] 04/29/2024 12:16:16 SARS-COV-2 (COVID-19) vaccine, UNSPECIFIED 2 completed Samuel Chappell [facility] 04/29/2024 12:16:21 SARS-COV-2 (COVID-19) vaccine, UNSPECIFIED 2 completed Samuel Chappell [facility] 04/29/2024 12:16:27 SARS-COV-2 (COVID-19) vaccine, UNSPECIFIED 3 completed Samuel Chapepll [facility] 04/29/2024 12:16:41 SARS-COV-2 (COVID-19) vaccine, UNSPECIFIED 4 completed Samuel Chappell [facility] 04/29/2024 12:16:51 zoster, unspecified formulation 3 completed Samuel Chappell [facility] 04/29/2024 12:17:13 zoster, unspecified formulation 3 completed [facility] 04/29/2024 12:17:19 Past Encounters Encounter ID Performer Location Encounter Start Date Encounter Closed Date Diagnosis/Indication Diagnosis SNOMED-CT Code Diagnosis ICD10 Code Diagnosis Note [id number] GEETA KWOK [address] [place] [address] 04/29/2024 10:45:26 05/03/2024 09:36:15 Chronic obstructive pulmonary disease 63423623 J44.9 2/ RSV/Influe nzaon presentati on O2 sats as low as 83 % and tachypneic 26tx inpatient with IV steroids, neb tx and abxcont doxycyclin e BID for 2 more dayscont on neb tx prn, albuterol inhaler prncont trelegy, respimat, dupixent. roflumilas tnow on prednisone taper , resume 2.5 mg when tapercompl etedmonito r resp status. Type 2 asa betes mellitus 66074689 E11.9 hx of neuropathy On trulicity, Insulin SSC, lyrica, jardiancec ont lantus at hsrobaxin prn for neuropathy painmonito r BGL TID Hypothyroidism 99615704 E03.9 continue on levothyrox inemonitor tsh prn Coronary arteriosclerosis 52599103 I25.10 HX of HLD, HTNon statincont on asamonitor for cardiac sx Essential hypertension 14484445 I10 cont on coreg dailymonit or BP Gout 61405478 M10.9 cont allopurino l dailyfollo w uric acid level prn Smoker 33192031 F17.200 reports that she has not smoked in 1 monthnow on nicotine patch 21 mgprovide support for cessation Hyperlipidemia 25106373 E78.5 cont atorvastat inmonitor labs prn Gastroesop hageal reflux disease without esophagitis 021768169 K21.9 cont omeprazole dailymonit or GI sx Allergic rhinitis 972974 04 J30.9 cont on fluticason e, montelukas t, cetirizine Leukocytosis 293797563 D 72.829 chronic from chronic steriod usefollow labs Low back pain 301846252 M54.50 cont lido patch qdpercocet prnon robaxin for neuropathy as well [id number] Chiquita Guardado MD [facility] [address] [place] [address] 05/03/2024 17:29:21 05/16/2024 12:42:00 Chronic obstructive pulmonary disease 76220526 J43.8 S/P several recent exacerbati ons, now back to baseline.C ompleted doxycyclin e 100 mg BID on 22Continu e slow prednisone taper.Cont inue trelegy 100/62.5/2 5 mcg qd, dupixent 300 mg q 2 wks, combivent 2 puffs BID, roflumilas t 500 mcg qd, montelukas t 10 mg qd, and duonebs and/or albuterol MDI q 4 hrs prn.Monito r resp status.F/U with pulmonary as planned. Type 2 asa betes mellitus 83577547 E11.42 Some high sugars since here, likely due to prednisone , expect improvemen t as taper continues. Continue Lantus 35U BID, Trulicity 1.5 mg weekly, Jardiance 10 mg qd, and SSI.Contin ue Lyrica 100 mg TID and methocarbo mol 750 mg q 8 hrs prn for neuropathy pain.Monit or fingerstic ks TID and HgA1C as outpt. Hypothyroidism 08166769 E03.8 Continue on levothyrox ine 112 mcg qdMonitor TSH as outpt. Coronary arteriosclerosis 69781179 I25.10 No recent sxs.Contin ue atorvastat in 80 mg qd, carvedilol 6.25 mg BID (hold for SBP<90), and ASA 81 mg qd.Monitor for sxs.F/U with cardio as planned. Essential hypertension 58332621 I10 Good control on meds as above.Chantel tor BP and labs. Gout 34297133 M10.09 No current sxs.Contin ue allopurino l 100 mg qdMonitor for flare. Smoker 48972783 F17.200 No longer smoking since recent hospitaliz ations.Con tinue nicotine patch 21 mg qd, taper as outpt.Cont inue to encourage abstinence . Hyperlipidemia 81930916 E78.49 Continue atorvastat in 80 mg qdMonitor labs as outpt. Gastroesop hageal reflux disease without esophagitis 587923775 K21.9 No current sxs.Contin ue omeprazole qdMonitor GI sxs Allergic rhinitis 756451 04 J30.89 Continue fluticason e nasal spray, montelukas t, and cetirizine Monitor sxs. Leukocytosis 872232603 D 72.828 Thought to be due to prednisone .Monitor Low back pain 077167393 M54.59 Under fair control.Co ntinue robaxin and Lyrica as above and lidocaine patch qd, and Percocet 7.5/325 mg q 6 hrs prn.PT/OT as above. Intertrigo 26517395 L30. 4 Continue diflucan 150 mg qod x 3 doses and will start nystatin cream BID.Monito r for healing. Asthenia 58676248 R53.1 Very deconditio bernice.Needs PT/OT for strengthen ing, balance, gait training, safety and function.C ontinue fall precaution s.Monitor for safety. [id number] MIGUE BRISENO, [employer] [facility] [address] [place] [address] 05/04/2024 11:59:27 05/16/2024 14:09:43 Viral pharyngitis 1394272 B34.9 throat and tonsil noted with erythema and slight swelling, not exudateswi ll add lozenges take 1 prn Q2 and warm water and salt rinses for comfort qid prn Intertrigo 61934583 L30. 4 acute onset over 1-2 dayserythe matous and scattered dry patchy rash noted covering vast majority of left and right buttockscu rrently rx diflucan qod for 3 dosesdue to pruritis will add clotrimazo le/beta BID for 10 daydiscuss ed with nursing will re eval in 2 days [id number] JOHAN VU NP [facility] [address] [place] [address] 05/05/2024 12:08:09 05/10/2024 11:42:42 Chronic obstructive pulmonary disease 84363152 J44.9 2/ RSV/Influe nzaDoing betterWean ed off T6Uoccvmih off prednisone .Doxy completed. Continue nebs and inhalers.C ombivent dose currently 2 inh bid, not typical but will not change as med managed by Pulmonolog ist.Monito r Type 2 asa betes mellitus 08769591 E11.9 BS borderline low in am and at lunchStill on prednisone taper.Disc ussed with pt.Plan -Continue trulicity and jardiance and SSIReduce lantus to 25 units q HS, continue 35 units in amAdd large portions to diet, refer to oven drier tender per pt. request, and assure HS snack (manuela crackers and PB on dinner tray)Monit or closely and adjust meds as needed. Hypothyroidism 96367011 E03.9 continue on levothyrox inemonitor tsh prn Coronary arteriosclerosis 64219037 I25.10 HX of HLD, HTNon statin, coreg, ASAmonitor for cardiac sx Essential hypertension 07646766 I10 cont on coreg dailymonit or BP Gout 84471242 M10.9 cont allopurino l dailyfollo w uric acid level prn Smoker 39193056 F17.200 reports that she has not smoked in 1 monthnow on nicotine patch 21 mgprovide support for cessation Hyperlipidemia 08780708 E78.5 cont atorvastat inmonitor labs prn Gastroesop hageal reflux disease without esophagitis 779542574 K21.9 cont omeprazole daily - came in on this doseUnsure of baseline, but will continue this dose for now, mahesh. with higher doses of prednisone .Consider dose taper when more stable and if stays LTC.monito r GI sx Allergic rhinitis 235856 04 J30.9 cont on fluticason e, montelukas t, cetirizine Leukocytosis 841012005 D 72.829 chronic from chronic steriod use - improving. 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 [id number] MIGUE BRISENO, [employer] [facility] [address] [place] [address] 05/11/2024 13:31:15 05/12/2024 14:06:40 Type 2 diabetes mellitus 18093277 E11.9 BS borderline low in am and at lunchStill on prednisone taper.Cont inue trulicity and jardiance and SSIReduce lantus to 25 units q HS, continue 35 units in amMonitor closely and adjust meds as needed. Dermal mycosis 19280408 B36.9 Breast folds, buttocksCo ntinue diflucan and topical antifungal /steroid cream.Keep areas clean and dryMonitor closely. Gastroesop hageal reflux disease without esophagitis 115308739 K21.9 cont omeprazole daily - came in on this doseUnsure of baseline, but will continue this dose for now, mahesh. with higher doses of prednisone .Consider dose taper when more stable and if stays LTC.monito r GI sx Chronic ob structive pulmonary disease 91237376 J44.9 2/2 RSV/Influe nzaDoing betterWean ed off W7Exczbbhy off prednisone .Doxy completed. Continue nebs and inhalers.C ombivent dose currently 2 inh bid, not typical but will not change as med managed by [facility].Monito r Leukocytosis 320841269 D 72.829 chronic from chronic steriod use - improving. follow labs Essential hypertension 96483448 I10 cont on coreg dailymonit or BP Smoker 67596778 F17.200 reports that she has not smoked in 1 monthnow on nicotine patch 21 mgprovide support for cessation Pressure i njury of coccygeal region of back stage II 5421928109 6368682 L89.152 patient reporting coccyx painfollow ed by wound NPreiterat ed [employer] recommenda tions to Turn, reposition & offload Q2 hours & PRN to aid in wound healing. Encourage appropriat e dietary supplement ation to aid in wound healing. [id number] JOHAN VU NP [facility] [address] [place] [address] 05/12/2024 10:32:45 05/20/2024 10:27:09 Type 2 diabetes mellitus 94008101 E11.9 BS borderline low a few weeks ago, lantus reduced to 35 units q am, 25 units q hs.Remains on trulicity, jardiance, and lispro SSI.BS improved on reduced dose of lantus.Of note, prednisone taper ending 05/15.Pt. will continue to monitor BS at home and adjust insulin as needed. Dermal mycosis 61580154 B36.9 Breast folds, buttocks; now improving. Completed diflucan.M ay continue topical antifungal /steroid cream.Keep areas clean and dryMonitor closely. Gastroesop hageal reflux disease without esophagitis 067157980 K21.9 cont omeprazole daily Chronic ob structive pulmonary disease 84195225 J44.9 2/ RSV/Influe nzaResolve d.Weaned off Y5Aloovdoh off prednisone .Doxy completed. Continue nebs and inhalers.M onitor Leukocytosis 378125722 D 72.829 chronic from chronic steriod use - improving. follow labs as outpt. Hypothyroidism 97455385 E03.9 continue on levothyrox inemonitor tsh prn Coronary arteriosclerosis 17327661 I25.10 HX of HLD, HTNon statin, coreg, ASAmonitor for cardiac sx Essential hypertension 84010671 I10 cont on coreg dailymonit or BP Gout 22688631 M10.9 cont allopurino l dailyfollo w uric acid level prn Smoker 33091524 F17.200 reports that she has not smoked in 1 monthnow on nicotine patch 21 mgprovide support for cessation - wishes to continue to not smoke upon d/c home. Hyperlipidemia 23059818 E78.5 cont atorvastat inmonitor labs prn Allergic rhinitis 368768 04 J30.9 cont on fluticason e, montelukas t, cetirizine Low back pain 801559644 M54.50 cont lido patch qdpercocet prnon robaxin for neuropathy as well Health Concerns Section Related Observation LastModified by Organization Detai ls LastModified Time None Recorded Concern Status LastModified by Organization Details LastModified Time None Recorded Advance Directives Directive Y: Payers Encounter Date Sequence Insurance Name Policy Number Policy Mendez Covered Member ID Mendez Member ID Guarantor Name 05/03/2024 1 [facility] - DOS ON OR AFTER 2022 - MEDICARE [place]VANTAGE [place]/ADV ANTAGE - PPO) Marita Esthela Lawrence [id number] Marita Lawrence 05/04/2024 1 [facility] - DOS ON OR AFTER 2022 - [place]/ADV ANTAGE - PPO) Marita Proctor Melinda [id number] Marita Ashley Lawrence 05/05/2024 1 [facility] - DOS ON OR AFTER 2022 - [place]V ANTAGE - PPO) Marita Esthela Lawrence [id number] Marita Lawrence 05/11/2024 1 [facility] - DOS ON OR AFTER 2022 - [place]/ADV ANTAGE - PPO) Marita Esthela Lawrence [id number] Marita Lawrence 05/12/2024 1 [facility] - DOS ON OR AFTER 2022 - [place]IC[place]/ADV ANTAGE - PPO) Marita Lawrence [id number] Marita Lawrence Notes Date Note Type Note Provider Name and Address Organization Details Recorded Time text/html This is a 63 yo woman with COPD on home O2, who is here for rehab after an acute hospitalization for COPD exacerbation with hypoxia, due to RSV.She was also s/p2 other hospitalizationsfor COPD exacerbations in 03/2024.04/07-04/11 and 04/14-04/19.Tested + for RSV on 04/07 and + for influenza also on 04/14. [facility] SO[facility] and hypoxia.She had an elevated WBC attributed to steroid use.CXR was non-acute.She was tachycardic and needing oximask to maintain sats >90%.She was restarted on solumedrol and doxy, continued on duonebs, and usual inhalers.Seen by pulmonary who recommended higher dose and more prolonged steroids.She was able to be weaned back to home level of O2, 2L by [place], but remained weak and wastransferred here for [...] with post-op hypothyroidism. Chiquita Guardado MD [address] [facility], [address], [place], [address], [facility] 05/14/2024 17:33:09 5 text/html Marita is seen [...] dot and spread quickly. GEETA KWOK [address] [facility], [address], [place], [address], [facility] 05/13/2024 16:49:37 5 text/html Marita is seen [...] snack. She is requesting to see the oven drier tender.She then shows me the rash on her [...] with post-op hypothyroidism. JOHAN VU NP [address] [facility], [address], [place], [address], [facility] [employer] 05/05/2024 12:42:06 5 text/html This is a [...] is nio acute concerns. GEETA KWOK [address] [facility], [address], [place], [address], [facility] 05/11/2024 16:45:23 5 text/html Marita is seen [...] with post-op hypothyroidism. JOHAN VU NP [address] [facility], [address], [place], [address], [facility] 05/20/2024 10:22:41 OBGyn Episode No OBEpisode recorded.
--- OUTSIDE RECORDS SUMMARY | 2024-08-01 09:58 | XMS_ITS | Encounter Summary ---
Author Organization [employer] Address [address] [place] [address] 7t [place] [address] Care Team Providers Care Lease Out Man Name Role Phone Name, Bobby GRADY Primary Care Provider [phone] Inga Magaña PharmD Unavailable [phone] Reason for Visit * Reason Comments Med Refill Encounter Details Date Type Department Care Team (Late st Contact Info) Description 05/15/2022 Refill [facility] MEDICINE [address] [place] [address] Name, MD Bobby [address] [place] [address] Seasonal allergic rhinitis, unspecified trigger (Primary Dx) [...] Info) Description 08/05/2024 11:30 AM EDT Telemedicine [facility] [place] [address] Name, [place] [address] 09/02/2024 1:00 PM EDT Telemedicine [facility] [place] [address] Skey Melton, HODA 11/02/2024 9:30 AM EDT Office Visit [facility] [place] [address] Name, MD Bobby [facility] [place] [address] documented as of this encounter Visit Diagnoses Diagnosis Seasonal allergic rhinitis, unspecified trigger- Primary documented in this encounter Additional Health Concerns Assessment Noted Time PHQ-9 Depression Total Score: 0 03/11/20 11:47 AM EST documented as of this encounter Care Teams Lease Out Man Relationship Specialty Start Date End Date Name, [place] [address] PCP - General Family Medicine 06/01/15 Inga Magaña PharmD [facility] [place] [address] Pharmacist Internal Medicine 01/07/23 09/29/23 Eloina 05/13/24 documented as of this encounter
== END 2024-08-01 09:15 | disposition home or self-care (01) ==
LOC: HO.US 09:14
PROVIDERS: PCP Internal Medicine Geriatric Medicine; Visit Provider Urology
DX: N20.0 Calculus of kidney (principal)
CPT/HCPCS: 76775

== ENCOUNTER → 2024-08-01 09:16 | Outpatient (BNV) | payer OTHER, SELFPAY | PROVIDERS: PCP Internal Medicine Geriatric Medicine; Visit Provider Radiology Diagnostic Radiology | DX: N20.0 Calculus of kidney (principal) | CPT/HCPCS: 76775 ==

== ENCOUNTER → 2024-08-02 09:11 | Outpatient (BNV) | payer OTHER, SELFPAY | PROVIDERS: PCP Internal Medicine Geriatric Medicine; Visit Provider Radiology Diagnostic Radiology | DX: M51.362 Other intervertebral disc degeneration, lumbar region with discogenic back pain and lower extremity pain (principal); M48.061 Spinal stenosis, lumbar region without neurogenic claudication | CPT/HCPCS: 72158 ==

== ENCOUNTER 2024-08-02 09:12 | Outpatient (REF) | payer OTHER, SELFPAY ==
--- NOTE | ~2024-08-02 | MR_ITS ---
CLINICAL HISTORY: H LAMINECTOMY W WOSENING CHRONIC LBP MR lumbar spine with and without gadolinium Comparison: CR - XR LUMBAR SPINE 2-3V - 06/12/24 17:26 EDT MR/MI - MR LUMBAR SPINE WO CON - 03/12/20 10:51 EST Findings: Bony alignment of the lumbar vertebral bodies is anatomic. No acute fracture identified. No bony destructive changes are seen. The conus terminates at L1-2. No abnormal signal intensity or enhancement is identified within the conus medullaris. No mass lesion seen within the visualized portions of the retroperitoneum. Segmental analysis: T11-12: There is a moderate-size right central disc protrusion. This indents the ventral thecal sac but does not contact the thoracic spinal cord. Neural foramina are patent. T12-L1: Small central disc protrusion without central canal or neural foraminal narrowing. L1-2: Minimal disc desiccation. No disc bulge or protrusion. Mild facet joint degenerative change. Central canal and neural foramina are patent. L2-3: Disc height loss with disc desiccation and broad-based disc bulge. Mild facet joint degenerative change. Central canal and neural foramina are patent. L3-4: Disc desiccation with broad-based disc bulge and moderate facet joint degenerative change with hypertrophy of the ligamentum flavum. There is juxta-articular enhancement surrounding the facet joints. This combination results in moderate narrowing of the central canal with mild bilateral neural foraminal narrowing. L4-5: Disc height loss with disc desiccation. Broad-based disc bulge with superimposed central and left central disc protrusion. Moderate facet joint degenerative change. This combination results in moderate narrowing of the central canal, especially involving the left lateral recess. Moderate bilateral neural foraminal narrowing. L5-S1: Prominent disc desiccation. There is a large right central disc protrusion extending laterally into the neural foramen. Moderate facet joint degenerative change. There is moderate narrowing of the right lateral recess with severe narrowing of the no foramina bilaterally. IMPRESSION: Multilevel degenerative disc disease and degenerative facet disease as fully discussed above with areas of both central canal and neural foraminal narrowing. This is most pronounced at the lumbosacral junction. This document has been electronically signed by: Geoff Brown MD on 08/03/2024 08:46:54
--- OUTSIDE RECORDS SUMMARY | 2024-08-02 10:02 | XMS_ITS | Encounter Summary ---
Author Organization [employer] Address [address] [facility] 7t [place] [address] Care Team Providers Care Letter Of Credit Document Examiner Name Role Phone Name, Bobby GRADY Primary Care Provider [phone] Inga Magaña PharmD Unavailable [phone] Reason for Visit * Reason Onset Date Comments Med Refill 01/20/2023 Encounter Details Date Type Department Care Team ([facility] st Contact Info) Description 01/20/2023 Telephone [facility] [address] [place] [address] Name, MD Bobby [address] [place] [address] Med Refill Social History Tobacco Use Types [...] Info) Description 08/05/2024 11:30 AM EDT Telemedicine [facility] [address] [place] [address] Bobby David MD [address] [place] [address] 09/02/2024 1:00 PM EDT Telemedicine [facility] [address] [place] [address] [phone] Skye Melton RN 11/02/2024 9:30 AM EDT Office Visit [facility] [address] [place] [address] NameBobby MD [address] [place] [address] documented as of this encounter Goals Goal Patient Goal Type Associated Problems Recent Progress Patient-Stated? Author Smoking cessation General No Inga Magaña, MiltonD documented as of this encounter Visit Diagnoses Not on filedocumented in this encounter Additional Health Concerns Assessment Noted Time PHQ-9 Depression Total Score: 0 03/11/20 22 11:47 AM EST documented as of this encounter Care Teams Letter Of Credit Document Examiner Relationship Specialty Start Date End Date Name, MD Bobby [address] [place] [address] PCP - General Family Medicine 06/01/15 Inga Magaña, MiltonD [address] [place] [address] Pharmacist Internal Medicine 01/07/23 09/29/23 Eloina 05/13/24 documented as of this encounter
--- OUTSIDE RECORDS SUMMARY | 2024-08-02 10:02 | XMS_ITS | Encounter Summary ---
Author Organization [employer] Address [address] [place] [address] 7t [place] [address] Care Team Providers Care Pulmonology Technician Name Role Phone Name, Bobby GRADY Primary Care Provider [phone] Inga Magaña PharmD Unavailable [phone] Reason for Visit * Reason Comments Med Refill Encounter Details Date Type Department Care Team ([facility] Contact Info) Description 11/18/2022 Refill [facility] [address] [place], [place] [phone] Name, MD Bobby [address] [place] [address] Type 2 diabetes mellitus without complications (CMS/[facility]) Social History Tobacco Use Types Packs/Day Years [...] Upcoming Encounters Date Type Department Care Team ([facility] Contact Info) Description 08/05/2024 11:30 AM EDT Telemedicine [facility] MED[facility]INE [address] [place] [address] Name, MD Bobby [facility] [place] [address] 09/02/2024 1:00 PM EDT Telemedicine [address] [address] Skye Melton, RN 11/02/2024 9:30 AM EDT Office Visit [address] [address] Name, MD Bobby [address] [place] [address] documented as of this encounter Visit Diagnoses Diagnosis Type 2 diabetes mellitus without complications (CMS/HCC) documented in this encounter Additional Health Concerns Assessment Noted Time PHQ-9 Depression Total Score: 0 03/11/20 11:47 AM EST documented as of this encounter Care Teams Pulmonology Technician Relationship Specialty Start Date End Date Name, MD Bobby [address] [place] [address] PCP - General Family Medicine 06/01/15 Inga Magaña PharmD [address] [place] [address] Pharmacist Internal Medicine 01/07/23 09/29/23 Eloina 05/13/24 documented as of this encounter
--- OUTSIDE RECORDS SUMMARY | 2024-08-02 10:02 | XMS_ITS | Encounter Summary ---
Author Organization [employer] Address [address] [place] [address] 7 [place] [address] Care Team Providers Care Reference Test Clerk Name Role Phone Name, Bobby GRADY Primary Care Provider [phone] Inga Magaña PharmD Unavailable [phone] Reason for Referral * Imaging (Routine) - Closed Specialty Diagnoses / Procedures Referred By Contac t Referred To Contact Diagnoses Other ovarian cyst, right side Procedures US Pelvis Transvaginal Monisha Linton CNM [address] [place] [address] Phone: tel: fax: [facility] MRI and CT Scan [address] [place] [address] Phone: tel: fax: Referral ID Status Reason Start Date Expiration Date Visits Re quested Visits Authorized [id number] Closed 04/01/2022 09/28/2022 1 1 Encounter Details Date Type Department Care Team ([facility] st Contact Info) Description 04/01/2022 Orders Only [facility] MEDICINE [address] [place], [place] [phone] Monisha Linton CNM [address] [place], [place] [phone] Other ovarian cyst, right side (Primary Dx) [...] Info) Description 08/05/2024 11:30 AM EDT Telemedicine [address] [address] NameBobby MD [address] [place] [address] 09/02/2024 1:00 PM EDT Telemedicine [address] [address] Skye Melton RN 11/02/2024 9:30 AM EDT Office Visit [address] [address] Bobby David MD [address] [place] [address] Scheduled Orders Name Type Priority Associated Diagnoses [...] documented as of this encounter Care Teams Reference Test Clerk Relationship Specialty Start Date End Date Bobby David MD [address] [place] [address] PCP - General Family Medicine 3/4/16 Inga Magaña, PharmD 230 [place] [address] Pharmacist Internal Medicine 01/07/23 09/29/23 Eloina 05/13/24 documented as of this encounter
--- OUTSIDE RECORDS SUMMARY | 2024-08-02 10:02 | XMS_ITS | Encounter Summary ---
Author Organization [employer] Address 75 [facility] 7t [place] [address] Care Team Providers Care Manager Drug Safety Name Role Phone Name, Bobby GRADY Primary Care Provider [phone] Inga Magaña PharmD Unavailable [phone] Reason for Visit * Reason Comments Med Refill Encounter Details Date Type Department Care Team ([facility] st Contact Info) Description 04/28/2023 Refill [facility] [place] [facility]INE [address] [place] [address] Name, MD Bobby [address] [place] [address] Social History Tobacco Use Types Packs/Day Years [...] Description 08/05/2024 11:30 AM EDT Telemedicine [address] [address] NameBobby MD [address] [place] [address] 09/02/2024 1:00 PM EDT Telemedicine [address] [address] Skye Melton RN 11/02/2024 9:30 AM EDT Office Visit [address] [address] NameBobby MD [address] [place] [address] documented as of this encounter Goals Goal Patient Goal Type Associated Problems Recent Progress Patient-Stated? Author Smoking cessation General No Inga Magaña, PharmD documented as of this encounter Visit Diagnoses Not on filedocumented in this encounter Additional Health Concerns Assessment Noted Time PHQ-9 Depression Total Score: 0 03/11/20 22 11:47 AM EST documented as of this encounter Care Teams Manager Drug Safety Relationship Specialty Start Date End Date NameBobby MD [address] [place] [address] PCP - General Family Medicine 06/01/15 Inga Magaña, PharmD 230 [place] [address] Pharmacist Internal Medicine 01/07/23 09/29/23 Eloina 05/13/24 documented as of this encounter
--- OUTSIDE RECORDS SUMMARY | 2024-08-02 10:02 | XMS_ITS | Encounter Summary ---
Author Organization [employer] Address 75 [facility] 7t [place] [address] Care Team Providers Care Programs Director Name Role Phone Name, Bobby GRADY Primary Care Provider [phone] Inga Magaña PharmD Unavailable [phone] Reason for Visit * Reason Comments Med Change Request Encounter Details Date Type Department Care Team ([facility] st Contact Info) Description 06/09/2023 Refill [facility] MEDICINE [address] [place] [address] Name, MD Bobby [address] [place] [address] Social History Tobacco Use Types Packs/Day Years [...] Info) Description 08/05/2024 11:30 AM EDT Telemedicine [address] [address] NameBobby MD [address] [place] [address] 09/02/2024 1:00 PM EDT Telemedicine [address] [address] Skye Melton RN 11/02/2024 9:30 AM EDT Office Visit [address] [address] NameBobby MD [address] [place] [address] documented as of this encounter Goals Goal Patient Goal Type Associated Problems Recent Progress Patient-Stated? Author Smoking cessation General No Inga Magaña, PharmD documented as of this encounter Visit Diagnoses Not on filedocumented in this encounter Additional Health Concerns Assessment Noted Time PHQ-9 Depression Total Score: 0 03/11/20 22 11:47 AM EST documented as of this encounter Care Teams Programs Director Relationship Specialty Start Date End Date NameBobby MD [address] [place] [address] PCP - General Family Medicine 06/01/15 Inga Magaña, PharmD [address] [place] [address] Pharmacist Internal Medicine 01/07/23 09/29/23 Eloina 05/13/24 documented as of this encounter
--- OUTSIDE RECORDS SUMMARY | 2024-08-02 10:02 | XMS_ITS | Encounter Summary ---
Author Organization [employer] Address [address] [place] [address] Care Team Providers Care Customer Management Specialist Name Role Phone Name, Bobby GRADY Primary Care Provider [phone] Encounter Details Date Type Department Care Team (Latest Contact Info) Description 05/11/2024 Lab Requisition [facility] - Main Lab [address] [place] [address] Yared Weaver MD [address] [place] [address], [phone] Atherosclerotic heart disease of [place] coronary artery without angina pectoris Social History [...] 8:21 AM EST Atherosclerotic heart disease of [place] coronary artery without angina pectoris BASIC METABOLIC PANEL Routine 05/12/2024 8:21 AM EST Atherosclerotic heart disease of [place] coronary artery without angina pectoris documented in this encounter Results * (ABNORMAL) Basic metabolic panel (05/12/2024 8:21 AM EST) Sodium 143 133 - 145 mmol/L LAB CHEMISTRY METHOD 05/12/2024 11:22 AM EST [facility] Potassium 3.6 3.5 - 5.5 mmol/L LAB CHEMISTRY METHOD 05/12/2024 11:[address] [facility] Chloride 109 96 - 110 mmol/L LAB CHEMISTRY METHOD 05/12/2024 11:[address] [facility] CO2 31 21 - 32 mmol/L LAB CHEMISTRY METHOD 05/12/2024 11:[address] [facility] Anion Gap 3 3 - 11 LAB CHEMISTRY METHOD 05/12/2024 11:[address] [facility] Glucose 95 70 - 100 mg/dL LAB CHEMISTRY METHOD 05/12/2024 11:[address] [facility] BUN 21 5 - 25 mg/dL LAB CHEMISTRY METHOD 05/12/2024 11:[address] [facility] Creatinine 0.80 0.50 - 1.10 mg/dL LAB CHEMISTRY METHOD 05/12/2024 11:[address] [facility] eGFR 82 >=60 mL/min/1. 73m2 LAB CHEMISTRY METHOD 05/12/2024 11:[address] [facility] Comment:Calculation based on the??Chronic Kidney Disease Epidemiology Collaboration (CKD-EPI) equation refit??without adjustment for race. BUN/Creatinine Ratio 26.3 LAB CHEMISTRY METHOD 05/12/2024 11:[address] [facility] Calcium 8.0(L) 8.5 - 10.5 mg/dL LAB CHEMISTRY METHOD 05/12/2024 11:[address] [facility] Blood Venous blood specimen / Unknown Venipuncture / Unknown 05/12/2024 8:21 AM EST 05/12/2024 10:56 AM EST us Yared Weaver MD LAB BLOOD ORDERABLES Final Resul t [facility] [address] [place] [address], * (ABNORMAL) Complete blood count (05/12/2024 8:21 AM EST) [facility] WBC 12.5(H) 4.8 - 10.8 K/mcL LAB HEMETOLOGY METHOD 05/12/2024 11:[address] [facility] RBC 5.10(H) 3.80 - 4.80 M/mcL LAB HEMETOLOGY METHOD 05/12/2024 11:[address] [facility] Hemoglobin 14.6 11.5 - 16.0 g/dL LAB HEMETOLOGY METHOD 05/12/2024 11:[address] [facility] Hematocrit 46.7 35.0 - 47.0 % LAB HEMETOLOGY METHOD 05/12/2024 11:[address] [facility] MCV 91.4 79.0 - 98.0 FL LAB HEMETOLOGY METHOD 05/12/2024 11:[address] [facility] MCH 28.6 27.0 - 32.0 pcg LAB HEMETOLOGY METHOD 05/12/2024 11:[address] [facility] MCHC 31.3(L) 32.0 - 37.0 g/dL LAB HEMETOLOGY METHOD 05/12/2024 11:[address] [facility] RDW 16.3(H) 11.0 - 15.0 % LAB HEMETOLOGY METHOD 05/12/2024 11:[address] [facility] Platelets 209 130 - 400 K/mcL LAB HEMETOLOGY METHOD 05/12/2024 11:[address] [facility] MPV 10.7 7.0 - 11.0 FL LAB HEMETOLOGY METHOD 05/12/2024 11:[address] [facility] NRBC 0.0 <1.0 % LAB HEMETOLOGY METHOD 05/12/2024 11:[address] [facility] NRBC Absolute 0.00 <0.10 K/mcL LAB HEMETOLOGY METHOD 05/12/2024 11:10 AM EST [facility] Blood Venous blood specimen / Unknown Venipuncture / Unknown 05/12/2024 8:21 AM EST 05/12/2024 10:56 AM EST us Yared Weaver MD LAB BLOOD ORDERABLES Final Resul t [facility] [address] [place] [address], documented in this encounter Visit Diagnoses Diagnosis Atherosclerotic heart disease of [place] coronary artery without angina pectoris documented in this encounter Care Teams Customer Management Specialist Relationship Specialty Start Date End Date Name, MD Bobby [address] [place], [place] PCP - General Internal Medicine 04/01/18 documented as of this encounter
--- OUTSIDE RECORDS SUMMARY | 2024-08-02 10:02 | XMS_ITS | Clinical Summary ---
Author Organization [facility] Address [address] [place] [address] Phone Care Team Providers Care Electrical Appliance Mechanic Name Role Phone Name, Bobby GRADY Primary Care Provider [phone] Encounters Date Type Department Care Team Description 05/11/2024 Lab Requisition [facility] Lab [address] [place] [phone] Yared Weaver MD Atherosclerotic heart disease of [place] coronary artery without angina pectoris 05/08/2024 Lab Requisition [facility] Lab [address] [place] [phone] Yared Weaver MD Hypothyroidism, unspecified 05/04/2024 Lab Requisition [facility] [address] [place] [phone] Yared Weaver MD Atherosclerotic heart disease of [place] coronary artery without angina pectoris from Last 3 Months Surgical History Surgery Date Site/Laterality Comments CHOLECYSTECTOMY PROCEDURE: CA CHOLECYSTECTOMY OTHER SURGICAL HISTORY PROCEDURE: HISTORY OTHER; COMMENT: Cardiac stent KIDNEY STONE SURGERY PROCEDURE: CA NEPHROLITHOTOMY REMOVAL CALCULUS BREAST LUMPECTOMY Right PROCEDURE: HISTORICAL BREAST LUMPECTOMY; COMMENT: benign Medical History Medical History Date Comments Coronary atherosclerosis of unspecified type of vessel, [place] or graft 07/07/2011 DX:Coronary atherosclerosis of unspecified type of vessel, [place] or graft Hypertension 07/07/2011 DX:Hypertension Historical Medical DX 07/07/2011 DX:Hyperli pidemia LDL goal < 70 DM2 (diabetes mellitus, type 2) ([facility] V24, CMS/HCC V28) 07/07/2011 DX:DM2 (diabetes mellitus, type 2) ([facility]) Tobacco abuse 07/07/2011 DX:Tobacco abuse Allergy-induced asthma 07/07/2011 DX:Allerg y-induced asthma Family History Medical History Relation Name Comments Breast cancer Aunt 1 maternal aunt, at 60 Breast cancer Aunt 2 paternal aunt, at 60 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: 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 Aunt 2 Colon cancer Brother at [...] 8:21 AM EST Atherosclerotic heart disease of [place] coronary artery without angina pectoris COMPLETE BLOOD COUNT Routine 05/12/2024 8:21 AM EST Atherosclerotic heart disease of [place] coronary artery without angina pectoris PREALBUMIN Routine 05/09/2024 5:33 AM EST Hypothyroidism, unspecified BASIC METABOLIC PANEL Routine 05/05/2024 5:05 AM EST Atherosclerotic heart disease of [place] coronary artery without angina pectoris COMPLETE BLOOD COUNT Routine 05/05/2024 5:05 AM EST Atherosclerotic heart disease of [place] coronary artery without angina pectoris from Last [...] LAB HEMETOLOGY METHOD 05/12/2024 11:10 AM EST [facility] MPV 10.7 7.0 - 11.0 FL LAB HEMETOLOGY METHOD 05/12/2024 11:10 AM EST [facility] NRBC 0.0 <1.0 % LAB HEMETOLOGY METHOD 05/12/2024 11:10 AM EST [facility] NRBC Absolute 0.00 <0.10 K/mcL LAB HEMETOLOGY METHOD 05/12/2024 11:10 AM EST [facility] Blood Venous blood specimen / Unknown Venipuncture / Unknown 05/12/2024 8:21 AM EST 05/12/2024 10:56 AM EST us Yared Weaver MD LAB BLOOD ORDERABLES Final Resul t [facility] [address] [place] [address], [place] [phone] * (ABNORMAL) Basic metabolic panel (05/12/2024 8:21 AM EST) Only the most recent of2 resultswithin the time period is included. Sodium 143 133 - 145 mmol/L LAB CHEMISTRY METHOD 05/12/2024 11:22 AM [facility] Potassium 3.6 3.5 - 5.5 [...] MD LAB BLOOD ORDERABLES Final Resul t [facility] [address] [place] [address], * Prealbumin (05/09/2024 5:33 AM EST) Prealbumin 24 18 - 45 mg/dL LAB CHEMISTRY METHOD 05/09/2024 1:03 PM EST [facility] Blood Venous blood specimen / Unknown Venipuncture / Unknown 05/09/2024 5:33 AM EST 05/09/2024 11:27 AM EST Yared Weaver MD LAB BLOOD ORDERABLES Final Resul t [facility] [address] [place] [address], [place] [phone] from Last 3 Months Insurance [facility] Member Subscriber Plan / Payer (Ef fective 2022-Present) Name:Marita Lawrence Relation to Subscriber:Self Name:Marita Lawrence Payer ID:[id number] Group ID:[id number] Type:Not on file Address: [place] [address] [address] [address] Care Teams Electrical Appliance Mechanic Relationship Specialty Start Date End Date Name, MD Bobby [address] [place], [place] PCP - General Internal Medicine 04/01/18
--- OUTSIDE RECORDS SUMMARY | 2024-08-02 10:02 | XMS_ITS | Encounter Summary ---
Author Organization [employer] Address 75 [facility] 7t [place] [address] Care Team Providers Care Shelving Supervisor Name Role Phone Name, Bobby GRADY Primary Care Provider [phone] Inga Magaña PharmD Unavailable [phone] Reason for Visit * Reason Onset Date Comments Med Refill 05/26/2023 Encounter Details Date Type Department Care Team ([facility] st Contact Info) Description 05/26/2023 Telephone [facility] MED[facility]INE [address] [place] [address] Name, MD Bobby [address] [place] [address] Med Refill Social History Tobacco Use Types [...] 7.5-325 MG tablet To be sent to: [facility] - [place], [place] - [address] [place] [address] documented in this encounter Plan of Treatment Upcoming Encounters Date Type Department Care Team (Late st Contact Info) Description 08/05/2024 11:30 AM EDT Telemedicine [facility] [address] [place] [address] Name, MD Bobby [address] [place] [address] 09/02/2024 1:00 PM EDT Telemedicine [facility] [address] [place] [address] Skye Melton RN 11/02/2024 9:30 AM EDT Office Visit [facility] [address] [place] [address] Name, MD Bobby [address] [place] [address] documented as of this encounter Goals Goal Patient Goal Type Associated Problems Recent Progress Patient-Stated? Author Smoking cessation General No Puia, Inga, PharmD documented as of this encounter Visit Diagnoses Not on filedocumented in this encounter Additional Health Concerns Assessment Noted Time PHQ-9 Depression Total Score: 0 03/11/20 22 11:47 AM EST documented as of this encounter Care Teams Shelving Supervisor Relationship Specialty Start Date End Date Name, MD Bobby [address] [place] [address] PCP - General Family Medicine 06/01/15 Inga Magaña, MiltonD [address] [place] [address] Pharmacist Internal Medicine 01/07/23 09/29/23 Eloina 05/13/24 documented as of this encounter
--- OUTSIDE RECORDS SUMMARY | 2024-08-02 10:02 | XMS_ITS | Encounter Summary ---
Author Organization [email or web address] Address 75 [facility] 7t [place] [address] Care Team Providers Care Foreign Language Teacher Name Role Phone Name, Bobby GRADY Primary Care Provider Inga Magaña PharmD Unavailable [phone] Reason for Visit * Reason Comments Med Refill Encounter Details Date Type Department Care Team (Late st Contact Info) Description 04/07/2022 Refill [facility] MEDICINE [address] [place] [address] Sherly Pichardo, HORSE RACETRACK MANAGER [address] [place] [address] Chronic low back pain with sciatica, sciatica [...] Info) Description 08/05/2024 11:30 AM EDT Telemedicine [address] [address] Name, [place] [address] 09/02/2024 1:00 PM EDT Telemedicine [address] [address] Skye Melton RN 11/02/2024 9:30 AM EDT Office Visit [address] [place] [address] Name, [place] [address] documented as of this encounter Visit Diagnoses Diagnosis Chronic low back pain with sciatica, sciatica laterality unspecified, unspecified back pain laterality documented in this encounter Additional Health Concerns Assessment Noted Time PHQ-9 Depression Total Score: 0 03/11/20 11:47 AM EST documented as of this encounter Care Teams Foreign Language Teacher Relationship Specialty Start Date End Date Name, [place] [address] PCP - General Family Medicine 06/01/15 Inga Magaña PharmD [address] [place] [address] Pharmacist Internal Medicine 01/07/23 09/29/23 Eloina 05/13/24 documented as of this encounter
--- OUTSIDE RECORDS SUMMARY | 2024-08-02 10:02 | XMS_ITS | Encounter Summary ---
Author Organization [employer] Address [address] [place] [address] 7t [place] [address] Care Team Providers Care Re Examiner Name Role Phone Name, Bobby GRADY Primary Care Provider [phone] Reason for Visit * Reason Onset Date Comments Hospital Follow-up 05/17/2024 Encounter Details Date Type Department Care Team ([facility] st Contact Info) Description 05/17/2024 Telephone [facility] MEDICINE [address] [place] [address] Name, MD Bobby [address] [place] [address] Hospital Follow-up Social History Tobacco Use Types [...] from pt requesting a HDF appt. Hospital: [facility] transported Date of admission: 04/06/2024 Discharge date: 05/12/2024 Diagnosed: RSV , Influenza A+B , COPD *Send message to [facility] Clinical Care Coordinators documented in this encounter Plan of Treatment Upcoming Encounters Date Type Department Care Team (Late st Contact Info) Description 08/05/2024 11:30 AM EDT Telemedicine [facility] MEDICINE [address] [place] [address] Name, MD Bobby [address] [place] [address] 09/02/2024 1:00 PM EDT Telemedicine [facility] MEDICINE [address] [place] [address] Skye Melton RN 11/02/2024 9:30 AM EDT Office Visit [facility]INE [address] [place] [address] Name, MD Bobby [address] [place] [address] documented as of this encounter Goals Goal Patient Goal Type Associated Problems Recent Progress Patient-Stated? Author Smoking cessation General Inga Radford, PharmD documented as of this encounter Visit Diagnoses Not on filedocumented in this encounter Additional Health Concerns Assessment Noted Time PHQ-9 Depression Total Score: 0 06/19/19 24 10:09 AM EDT documented as of this encounter Care Teams Re Examiner Relationship Specialty Start Date End Date Name, MD Bobby [address] [place] [address] PCP - General Family Medicine 06/01/15 Eloina 05/13/24 documented as of this encounter
--- OUTSIDE RECORDS SUMMARY | 2024-08-02 10:02 | XMS_ITS | Encounter Summary ---
Author Organization [employer] Address [address] [place] [address] Care Team Providers Care Computer Systems Design Analyst Name Role Phone Name, Bobby GRADY Primary Care Provider [phone] Encounter Details Date Type Department Care Team (Late st Contact Info) Description 05/08/2024 Lab Requisition [facility] - Main Lab [address] [place] [address] Yared Weaver MD [address] [place] [address], [phone] Hypothyroidism, unspecified Social History Tobacco Use [...] LAB CHEMISTRY METHOD 05/09/2024 1:03 PM EST [facility] Blood Venous blood specimen / Unknown Venipuncture / Unknown 05/09/2024 5:33 AM EST 05/09/2024 11:27 AM EST us Yared Weaver MD LAB BLOOD ORDERABLES Final Resul t [facility] [address] [place] [address], documented in this encounter Visit Diagnoses Diagnosis Hypothyroidism, unspecified documented in this encounter Care Teams Computer Systems Design Analyst Relationship Specialty Start Date End Date Name, MD Bobby [address] [place], [place] PCP - General Internal Medicine 04/01/18 documented as of this encounter
--- OUTSIDE RECORDS SUMMARY | 2024-08-02 10:02 | XMS_ITS | Encounter Summary ---
Author Organization [employer] Address [address] [facility] 7t [place] [address] Care Team Providers Care Cyber Defense Forensics Analyst Name Role Phone Name, Bobby GRADY Primary Care Provider [phone] Encounter Details Date Type Department Care Team (Late st Contact Info) Description 08/01/2024 Orders Only [facility] External Provider, [facility] Social History Tobacco Use Types Packs/Day [...] Info) Description 08/05/2024 11:30 AM EDT Telemedicine [address] [address] NameBobby MD [address] [place] [address] 09/02/2024 1:00 PM EDT Telemedicine [address] [address] Skye Melton RN 11/02/2024 9:30 AM EDT Office Visit [address] [address] NameBobby MD [address] [place] [address] documented as of this encounter Goals Goal Patient Goal Type Associated Problems Recent Progress Patient-Stated? Author Smoking cessation General No Inga Magaña, PharmD documented as of this encounter Procedures Procedure Name Priority Date/Time Associated Diagnosis Comments US RENAL BI Routine 08/01/2024 4:08 PM EDT documented in this encounter Results * US RENAL BI (08/01/2024 4:08 PM EDT) Anatomical Region Laterality Modality Abdomen Ultrasound 08/01/2024 4:08 PM EDT Narrative 08/01/2024 4:09 PM EDT ? [facility] ?[address] ?[place] [address] ? Ultrasound Report ? Signed ? Patient: Ashleybenson [place],Marita M ?MR#: [id number] ?? [id number] ? : 1960 ?Acct:[id number] ? Age/Sex: 63 / F ?ADM Date: 08/01/24 ? Loc: HO.US ? Attending Dr: Blayne Srinivasan MD ? Ordering Physician: Blayne Srinivasan MD ?? Date of Service: 08/01/24 ?? Procedure(s): US renal BI ?? Accession Number(s): [id number] ? cc: Blayne Srinivasan MD; Name,Bobby GRADY ? CLINICAL HISTORY: N20.0 - Calculus of kidney ? US RENAL ? Comparison: US/SR - US RENAL BI - 01/22/24 12:32 EDT ? Findings: ?? The right kidney measures 11.4 cm in length. Normal renal cortical ?? thickness and echotexture. Mild pelvicaliectasis similar to prior. No ?? cortical mass lesion. There are 2 mm and 3 mm calculi. ? The left kidney measures 11.8 cm in length. Normal renal cortical ?? thickness and echotexture. No hydronephrosis or cortical mass lesion. ?? There is a 2 mm calculus. ? IMPRESSION: ?? 1. Mild right-sided pelvicaliectasis is similar to prior and may be ?? chronic. No helen hydronephrosis. ?? 2. No left hydronephrosis. ?? 3. Nonobstructing bilateral nephrolithiasis. ? This document has been electronically signed by: Anastasia Meyer, DO on ?? 08/01/2024 16:08:28 ? Dictated By: ?Anastasia Meyer MD ? Signed By: ?<Electronically signed by Anastasia Meyer MD in OV> ?08/01/24 1609 ? DD/ 1608 ? TD/TT: 08/01/24 1608 ? Oil Well Logging Engineer: ? Procedure Note Elie Mercado - 08/01/[address] [address] Ultrasound Report Signed Patient: Marita Zapata [facility]#: [id number] : 1960Acct:[id number] Age/Sex: 63 / FADM Date: 08/01/24 Loc: HO.US Attending Dr: Blayne Srinivasan MD Ordering Physician: Blanye Srinivasan MD Date of Service: 08/01/24 Procedure(s): US renal BI Accession Number(s): [id number] cc: Blayne Srinivasan MD; Name,Bobby GRADY CLINICAL HISTORY: N20.0 - Calculus of kidney US RENAL Comparison: US/SR - US RENAL BI - 01/22/24 12:32 EDT Findings: The right kidney measures 11.4 cm in length. Normal renal cortical thickness and echotexture. Mild pelvicaliectasis similar to prior. No cortical mass lesion. There are 2 mm and 3 mm calculi. The left kidney measures 11.8 cm in length. Normal renal cortical thickness and echotexture. No hydronephrosis or cortical mass lesion. There is a 2 mm calculus. IMPRESSION: 1. Mild right-sided pelvicaliectasis is similar to prior and may be chronic. No helen hydronephrosis. 2. No left hydronephrosis. 3. Nonobstructing bilateral nephrolithiasis. This document has been electronically signed by: Anastasia Meyer DO on 08/01/2024 16:08:28 Dictated By: Anastasia Meyer MD Signed By: <Electronically signed by Anastasia Meyer MD in OV> 08/01/24 1609 DD/ 1608 TD/TT: 08/01/24 1608 Oil Well Logging Engineer: [facility] External Provider IMG US PROCEDURES Final Result documented in this encounter Visit Diagnoses Not on filedocumented in this encounter Additional Health Concerns Assessment Noted Time PHQ-9 Depression Total Score: 0 06/19/19 24 10:09 AM EDT documented as of this encounter Care Teams Cyber Defense Forensics Analyst Relationship Specialty Start Date End Date Name, MD Bobyb [address] [place] [address] PCP - General Family Medicine 06/01/15 Eloina 05/13/24 documented as of this encounter
--- OUTSIDE RECORDS SUMMARY | 2024-08-02 10:02 | XMS_ITS | Encounter Summary ---
Author Organization [employer] Address [address] [place] [address] 7t [place] [address] Care Team Providers Care Authorizer Name Role Phone NameBobby MD Primary Care Provider [phone] Inga Magaña PharmD Unavailable [phone] Reason for Visit * Reason Onset Date Comments Referral 04/23/2022 Encounter Details Date Type Department Care Team ([facility] st Contact Info) Description 04/23/2022 Telephone [facility] MEDICINE [address] [place] [address] NameBboby MD [address] [place] [address] Referral Social History Tobacco Use Types Packs/Day [...] Pt wants referral to see Gastroenterology in [facility], as pt has hx of colon cancer and has been waiting 10 years for colonoscopy. Pt stated June at [facility] has an apptset up for pt on May 13 and needs referral placed before then. Pt verbalized understanding and denied having any further questions or concerns at this time. * Telephone Encounter - Octavio Holliday - 04/23/2022 11:46 AM EST Tc from pt requesting an referral to see an gastroenterology at [facility] Please contact pt at [phone] documented in this encounter Plan of Treatment Upcoming Encounters Date Type Department Care Team (Late st Contact Info) Description 08/05/2024 11:30 AM EDT Telemedicine [facility] MEDICINE [address] [place] [address] Bobby David MD [address] [place] [address] 09/02/2024 1:00 PM EDT Telemedicine [address] [address] Skye Melton RN 11/02/2024 9:30 AM EDT Office Visit [facility] [address] [place] [address] Bobby David MD [address] [place] [address] documented as of this encounter Visit Diagnoses Diagnosis History of colon polyps- Primary Family history of colon cancer Family history of malignant neoplasm of gastrointestinal tract documented in this encounter Additional Health Concerns Assessment Noted Time PHQ-9 Depression Total Score: 0 03/11/20 11:47 AM EST documented as of this encounter Care Teams Authorizer Relationship Specialty Start Date End Date Bobby David MD [address] [place] [address] PCP - General Family Medicine 06/01/15 Inga Magaña, MiltonD [address] [place] [address] [place] [phone] Pharmacist Internal Medicine 01/07/23 09/29/23 Eloina 05/13/24 documented as of this encounter
--- OUTSIDE RECORDS SUMMARY | 2024-08-02 10:02 | XMS_ITS | Encounter Summary ---
Author Organization [employer] Address [address] [place] [address] 7t [place] [address] Care Team Providers Care Compressor Operator Name Role Phone Name, Bobby GRADY Primary Care Provider [phone] Inga Magaña PharmD Unavailable [phone] Reason for Visit * Reason Onset Date Comments Prior Authorization 01/21/2023 HumaLOG KWIK PEN 100 UNIT/ML injection Encounter Details Date Type Department Care Team ([facility] st Contact Info) Description 01/21/2023 Telephone [facility] MEDICINE [address] [place] [address] Name, MD Bobby [address] [place] [address] Prior Authorization (HumaLOG KWIKPEN 100 UNIT/ML injection) [...] EDT Telemedicine [facility] MEDICINE [address] [place] [address] Name, MD Bobby [address] [place] [address] 09/02/2024 1:00 PM EDT Telemedicine [facility]INE [address] [place] [address] Skye Melton RN 11/02/2024 9:30 AM EDT Office Visit [facility] [address] [place] [address] NameBobby MD [address] [place] [address] documented as of this encounter Goals Goal Patient Goal Type Associated Problems Recent Progress Patient-Stated? Author Smoking cessation General No Inga Magaña, PharmD documented as of this encounter Visit Diagnoses Not on filedocumented in this encounter Additional Health Concerns Assessment Noted Time PHQ-9 Depression Total Score: 0 03/11/20 22 11:47 AM EST documented as of this encounter Care Teams Compressor Operator Relationship Specialty Start Date End Date Name, MD Bobby [address] [place] [address] PCP - General Family Medicine 06/01/15 Inga Magaña, PharmD [address] [place] [address] Pharmacist Internal Medicine 01/07/23 09/29/23 Eloina 05/13/24 documented as of this encounter
--- OUTSIDE RECORDS SUMMARY | 2024-08-02 10:02 | XMS_ITS | Encounter Summary ---
Author Organization [employer] Address [address] [facility] 7t [place] [address] Care Team Providers Care Family Consumer Scientist Name Role Phone Name, Bobby GRADY Primary Care Provider [phone] Reason for Visit * Reason Comments Med Refill Encounter Details Date Type Department Care Team ([facility] Contact Info) Description 07/20/2024 Refill [facility] MEDICINE [address] [place] [address] Sherly Pichardo FNP [address] [place] [address] Social History Tobacco Use Types Packs/Day Years [...] Info) Description 08/05/2024 11:30 AM EDT Telemedicine [address] [address] NameBobby MD [address] [place] [address] 09/02/2024 1:00 PM EDT Telemedicine [address] [address] Skye Melton RN 11/02/2024 9:30 AM EDT Office Visit [address] [address] Bobby David MD [address] [place] [address] documented as of this encounter Goals Goal Patient Goal Type Associated Problems Recent Progress Patient-Stated? Author Smoking cessation General No Inga Magaña, PharmD documented as of this encounter Visit Diagnoses Not on filedocumented in this encounter Additional Health Concerns Assessment Noted Time PHQ-9 Depression Total Score: 0 06/19/19 24 10:09 AM EDT documented as of this encounter Care Teams Family Consumer Scientist Relationship Specialty Start Date End Date Bobby David MD [address] [place] [address] PCP - General Family Medicine 06/01/15 Eloina 05/13/24 documented as of this encounter
--- OUTSIDE RECORDS SUMMARY | 2024-08-02 10:02 | XMS_ITS | Encounter Summary ---
Author Organization [employer] Address [address] [place] [address] 7[place] [address] Care Team Providers Care Director Life Sciences Name Role Phone Name, Bobby GRADY Primary Care Provider [phone] Inga Magaña PharmD Unavailable [phone] Reason for Visit * Reason Comments Med Refill Encounter Details Date Type Department Care Team ([facility] Contact Info) Description 11/18/[address] [facility] MEDICINE [address] [place] [address] [phone] Sherly Pichardo, GEETA [address] [place], [place] [phone] Type 2 diabetes mellitus without complications (CMS/[facility]) Social History Tobacco Use Types [...] Upcoming Encounters Date Type Department Care Team ([facility] Contact Info) Description 08/05/2024 11:30 AM EDT Telemedicine [facility] MEDICINE [address] [place] [address] Name, MD [facility] [place] [address] 09/02/2024 1:00 PM EDT Telemedicine [address] [place] [address] Skye Melton, RN 11/02/2024 9:30 AM EDT Office Visit [address] [address] Name, [place] [address] documented as of this encounter Visit Diagnoses Diagnosis Type 2 diabetes mellitus without complications (CMS/HCC) documented in this encounter Additional Health Concerns Assessment Noted Time PHQ-9 Depression Total Score: 0 03/11/20 22 11:47 AM EST documented as of this encounter Care Teams Director Life Sciences Relationship Specialty Start Date End Date Name, MD Bobby [address] [place] [address] PCP - General Family Medicine 06/01/15 Inga Magaña PharmD [address] [place] [phone] Pharmacist Internal Medicine 01/07/23 09/29/23 Eloina 05/13/24 documented as of this encounter
--- OUTSIDE RECORDS SUMMARY | 2024-08-02 10:03 | XMS_ITS | Encounter Summary ---
Author Organization [employer] Address [address] [place] [address] 7t [place] [address] Care Team Providers Care Automobile Damage Field Appraiser Name Role Phone Name, Bobby GRADY Primary Care Provider Inga Magaña PharmD Unavailable Encounter Details Date Type Department Care Team (Late st Contact Info) Description 03/05/2022 Telephone [facility] MEDICINE [address] [place] [address] Monisha Linton CNM [address] [place] [address] Social History Tobacco Use Types Packs/Day Years [...] Info) Description 08/05/2024 11:30 AM EDT Telemedicine [facility] MEDICINE [address] [place] [address] [phone] Frankie, MD Bobby [address] [place] [address] 09/02/2024 1:00 PM EDT Telemedicine [facility] MEDICINE [address] [place] [address] [phone] Skye Melton RN 11/02/2024 9:30 AM EDT Office Visit [facility]INE [address] [place] [address] Name, MD Bobby [address] [place] [address] documented as of this encounter Visit Diagnoses Not on filedocumented in this encounter Care Teams Automobile Damage Field Appraiser Relationship Specialty Start Date End Date Name, MD Bobby [address] [place] [address] PCP - General Family Medicine 06/01/15 Inga Magaña PharmD [address] [place] [address] Pharmacist Internal Medicine 01/07/23 09/29/23 Eloina 05/13/24 documented as of this encounter
--- OUTSIDE RECORDS SUMMARY | 2024-08-02 10:03 | XMS_ITS | Encounter Summary ---
Author Organization [employer] Address [address] [place] [address] Care Team Providers Care Supersonic Engineer Name Role Phone Name, Bobby GRADY Primary Care Provider [phone] Encounter Details Date Type Department Care Team (Latest Contact Info) Description 04/29/2024 Lab Requisition [facility] - Main Lab [address] [place] [address] Yared Weaver MD [address] [place] [address], [phone] 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 Social History [...] 5:10 AM EST 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 BASIC METABOLIC PANEL Routine 04/29/2024 5:10 AM EST 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 documented in this encounter Results * (ABNORMAL) Basic metabolic panel (04/29/2024 5:10 AM EST) Sodium 143 133 - 145 mmol/L LAB CHEMISTRY METHOD 04/29/2024 11:20 AM EST [facility] Potassium 4.5 3.5 - 5.5 mmol/L LAB CHEMISTRY METHOD 04/29/2024 11:20 AM [facility] LAB Chloride 106 96 - 110 mmol/L LAB CHEMISTRY METHOD 04/29/2024 11:20 AM [facility] LAB CO2 31 21 - 32 mmol/L LAB CHEMISTRY METHOD 04/29/2024 11:20 AM [facility] LAB Anion Gap 6 3 - 11 LAB CHEMISTRY METHOD 04/29/2024 11:20 AM [facility] LAB Glucose 97 70 - 100 mg/dL LAB CHEMISTRY METHOD 04/29/2024 11:20 AM [facility] LAB BUN 34(H) 5 - 25 mg/dL LAB CHEMISTRY METHOD 04/29/2024 11:20 AM [facility] LAB Creatinine 0.80 0.50 - 1.10 mg/dL LAB CHEMISTRY METHOD 04/29/2024 11:20 AM [facility] LAB eGFR 82 >=60 mL/min/1. 73m2 LAB CHEMISTRY METHOD 04/29/2024 11:20 AM [facility] LAB Comment:Calculation based on the??Chronic Kidney Disease Epidemiology Collaboration (CKD-EPI) equation refit??without adjustment for race. BUN/Creatinine Ratio 42.5 LAB CHEMISTRY METHOD 04/29/2024 11:20 AM [facility] LAB Calcium 7.9(L) 8.5 - 10.5 mg/dL LAB CHEMISTRY METHOD 04/29/2024 11:20 AM [facility] LAB Blood Venous blood specimen / Unknown Venipuncture / Unknown 04/29/2024 5:10 AM EST 04/29/2024 9:30 AM EST us Yared Weaver MD LAB BLOOD ORDERABLES Final Resul t [facility] LAB [address] [place] [address], * (ABNORMAL) Complete blood count (04/29/2024 5:10 AM EST) [facility] Signature WBC 18.2(H) 4.8 - 10.8 K/mcL LAB HEMETOLOGY METHOD 04/29/2024 10:30 AM [facility] LAB RBC 5.30(H) 3.80 - 4.80 M/mcL LAB HEMETOLOGY METHOD 04/29/2024 10:30 AM [facility] LAB Hemoglobin 15.0 11.5 - 16.0 g/dL LAB HEMETOLOGY METHOD 04/29/2024 10:30 AM [facility] LAB Hematocrit 48.0(H) 35.0 - 47.0 % LAB HEMETOLOGY METHOD 04/29/2024 10:30 AM [facility] LAB MCV 90.2 79.0 - 98.0 FL LAB HEMETOLOGY METHOD 04/29/2024 10:30 AM [facility] LAB MCH 28.2 27.0 - 32.0 pcg LAB HEMETOLOGY METHOD 04/29/2024 10:30 AM [facility] LAB MCHC 31.3(L) 32.0 - 37.0 g/dL LAB HEMETOLOGY METHOD 04/29/2024 10:30 AM [facility] LAB RDW 14.7 11.0 - 15.0 % LAB HEMETOLOGY METHOD 04/29/2024 10:30 AM [facility] LAB Platelets 238 130 - 400 K/mcL LAB HEMETOLOGY METHOD 04/29/2024 10:30 AM [facility] LAB MPV 11.8(H) 7.0 - 11.0 FL LAB HEMETOLOGY METHOD 04/29/2024 10:30 AM [facility] LAB NRBC 0.0 <1.0 % LAB HEMETOLOGY METHOD 04/29/2024 10:30 AM [facility] LAB NRBC Absolute 0.00 <0.10 K/mcL LAB HEMETOLOGY METHOD 04/29/2024 10:30 AM EST [facility] LAB Blood Venous blood specimen / Unknown Venipuncture / Unknown 04/29/2024 5:10 AM EST 04/29/2024 9:30 AM EST us Yared Weaver MD LAB BLOOD ORDERABLES Final Resul t [facility] LAB [address] [place] [address], documented in this encounter Visit Diagnoses Diagnosis 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 documented in this encounter Care Teams Supersonic Engineer Relationship Specialty Start Date End Date Name, MD Bobby [address] [place], [place] PCP - General Internal Medicine 04/01/18 documented as of this encounter
--- OUTSIDE RECORDS SUMMARY | 2024-08-02 10:03 | XMS_ITS | Encounter Summary ---
Author Organization [employer] Address [address] [place] [address] 7t [place] [address] Care Team Providers Care Pneumatic Tester Mechanic Name Role Phone Name, Bobby GRADY Primary Care Provider [phone] Inga Magaña PharmD Unavailable [phone] Reason for Visit * Reason Comments Med Refill Encounter Details Date Type Department Care Team (Late st Contact Info) Description 05/15/2022 Refill [facility]INE [address] [place] [address] Name, MD Bobby [address] [place] [address] Seasonal allergic rhinitis, unspecified trigger (Primary Dx) [...] Info) Description 08/05/2024 11:30 AM EDT Telemedicine [address] [place] [address] Name, [place] [address] 09/02/2024 1:00 PM EDT Telemedicine [address] [address] Skye Melton, HODA 11/02/2024 9:30 AM EDT Office Visit [address] [place] [address] Name, [place] [address] documented as of this encounter Visit Diagnoses Diagnosis Seasonal allergic rhinitis, unspecified trigger- Primary documented in this encounter Additional Health Concerns Assessment Noted Time PHQ-9 Depression Total Score: 0 03/11/20 11:47 AM EST documented as of this encounter Care Teams Pneumatic Tester Mechanic Relationship Specialty Start Date End Date Name, MD Bobby [facility] [place] [address] PCP - General Family Medicine 06/01/15 Inga Magaña, MiltonD [address] [place] [address] Pharmacist Internal Medicine 01/07/23 09/29/23 Eloina 05/13/24 documented as of this encounter
--- OUTSIDE RECORDS SUMMARY | 2024-08-02 10:03 | XMS_ITS | Clinical Summary ---
Author Organization [employer] Address [address] [place] [address] 7 [place] [address] Care Team Providers Care Counter Server Name Role Phone Name, Bobby GRADY Primary Care Provider [phone] Allergies Active Allergy Reactions Criticality Noted Date [...] puffs every 4 (four) hours if needed. 021 Active Roflumilast 500 MCG tablet Take 1 [...] mellitus without complications ([facility]) Check BG twice daily 100 each 11 022 Active Alcohol Swabs (Alcohol Prep) 70 % [...] mellitus with other specified complication, unspecified whether statistical programmer insulin use ([facility]) USE DIRECTED FIVE TIMES DAILY 200 each Active fluticasone (Flonase) 50 MCG/ACT nasal spray INSTILL 2 SPRAYS IN EACH NOSTRIL ONCE DAILY 16 g 3 Active celecoxib (CeleBREX) 200 MG capsule TAKE 1 CAPSULE BY MOUTH TWICE DAILY WITH FOOD AND A FULL GLASS OF WATER NEEDED FOR PAIN Active dulaglutide (Trulicity) 1.5 MG/0.5ML solution pen-injectorIndi cations:Type 2 diabetes with complication ([facility]),COPD exacerbation ([facility]) Inject 1.5 mg under the skin 1 (one) time per week. 2 mL Active empagliflozin (Jardiance) 10 MG Take 1 tablet (10 mg) by mouth Once per day. 30 tablet 2024 Active insulin glargine (Lantus SoloStar) 100 UNIT/ML penIndications:A therosclerosis of coronary artery of [place] heart, unspecified vessel or lesion type, unspecified whether angina present INJECT 35 UNITS SUBCUTANEOUSLY TWICE DAILY IN THE MORNING AND IN THE EVENING 15 mL Active OneTouch Ultra Test test stripIndications :Type 2 diabetes mellitus without complications ([facility]) USE DIRECTED TO TEST BLOOD SUGAR THREE TIMES DAILY 50 strip 5 Active SM Calcium Citrate+Vit D3 Max tablet TAKE 1 TABLET BY MOUTH 2 TIMES DAILY 60 tablet 3 Active ipratropium-albu terol (Duo-Neb) 0.5-2.5 mg/3 mL nebulizer solutionIndicati ons:Chronic obstructive pulmonary disease, unspecified ([facility]/HCC) INHALE 1 AMPULE USING A NEBULIZER FOUR [...] BY MOUTH EVERY DAY 90 tablet 1 025 Active predniSONE (Deltasone) 20 MG tablet 2 tabs po daily for 5 days 10 tablet Active baclofen (Lioresal) 10 MG tabletIndication s:Lumbar radiculopathy Take 1 tablet (10 mg) by mouth every 8 (eight) hours if needed for muscle spasms. 45 tablet 025 Active omeprazole (PriLOSEC) [address] capsuleIndicatio ns:Lumbar radiculopathy TAKE 1 CAPSULE BY MOUTH TWICE DAILY 30 MINUTES BEFORE MEALS 60 capsule 025 Active docusate sodium (Colace) 100 MG capsuleIndicatio ns:Drug-induced constipation TAKE 1 CAPSULE BY MOUTH EVERY DAY AT BEDTIME NEEDED 90 capsule 3 025 Active pregabalin (Lyrica) 100 MG capsule 1 CAPSULE two TIMES DAILY 60 capsule 025 Active Combivent Respimat 20-100 MCG/ACT inhalerIndicatio ns:Chronic obstructive pulmonary disease, unspecified COPD type (CMS/HCC) INHALE 1 PUFF 4 TIMES A DAY, MAY TAKE ADDITIONAL PUFFS NEEDED. (MAX OF 6 PUFFS PER DAY) 4 g 5 04/07/2 025 Active oxyCODONE-acetam inophen (Percocet) 7.5-325 MG tabletIndication [...] ns:Chronic obstructive pulmonary disease, unspecified COPD type ([facility]) INHALE 1 PUFF 4 TIMES A DAY, [...] eorder (will not trigger notification to Pharmacy)) Active [...] neoplasm o f colon 09/30/2023 CAD in [place] artery 09/02/2023 Opioid dependence, daily use 07/27/2023 [...] Hyperlipidemia with target LDL less than 70 /11/2011 Overview (11/06/2022): IMO update Macular degeneration 1960 [...] Encounters Date Type Department Care Team Description 08/01/2024 Orders Only [facility] External Provider, [facility] 07/27/2024 Refill [facility] [address] [place], [place] [phone] Name, MD Bobby Chronic low back pain with sciatica, sciatica laterality unspecified, unspecified back pain laterality 07/20/2024 Refill [facility] [address] [place] [address] Sherly Pichardo FNP 07/14/2024 Telephone [facility] [address] [place] [address] Cem Berrios [place] september recalls 07/06/2024 11:00 AM EDT Office Visit [facility] [address] [place] [phone] Bobby David MD Type 2 diabetes mellitus with other specified complication, unspecified whether statistical programmer insulin use ([facility]) (Primary Dx); Chronic obstructive pulmonary disease, unspecified COPD type ([facility]); Abnormal chest x-ray; History of pneumonia 07/06/2024 Travel 07/05/2024 Telephone [facility] [address] [place] [address] Sherly Pichardo BANDMILL OPERATOR MRI LUMBAR 07/05/2024 Telephone [facility] [address] [place] [address] Sherly Pichardo, BANDMILL OPERATOR MRI LUMBAR 07/04/2024 Telephone [facility] [address] [place], [place] [phone] Bobby David MD Durable Medical Equipment 07/03/2024 Refill [facility] [address] [place] [address] Bobby David MD Chronic obstructive pulmonary disease, unspecified COPD type ([facility]) 06/30/2024 Refill [facility] [address] [place] [address] Bobby David MD Chronic low back pain with sciatica, sciatica laterality unspecified, unspecified back pain laterality 06/29/2024 Telephone [facility] [address] [place] [phone] hSerly Pichardo, BANDMILL OPERATOR MRI LUMBAR SPINE ORDER 06/24/[address] [address] Mildred Eason LPN Prior Authorization 06/23/2024 Telephone [facility] [address] [place] [phone] Sherly Pichardo, BANDMILL OPERATOR MRI LUMBAR SPINE ORDER 06/22/2024 3:30 PM EDT Office Visit [facility] [address] [place] [phone] Basia Herndon MD Pneumonia of right middle lobe due to infectious organism (Primary Dx); Type 2 diabetes mellitus with other specified complication, unspecified whether mcfp insulin use ([facility]); Cough, unspecified type; Drug-induced constipation; Dietary counseling; Exercise counseling; Overweight 06/22/2024 Travel 06/22/[address] [address] Bobby David MD Lumbar radiculopathy 06/20/2024 Orders Only [facility] [address] [place] [address] Sherly Pichardo, BANDMILL OPERATOR 06/20/2024 Telephone [facility] [address] [place] [address] Sherly Pichardo BANDMILL OPERATOR Results (Lumbar x-ray) 06/17/2024 Orders Only [facility] [address] [place] [address] Sherly Pichardo, BANDMILL OPERATOR Lumbar radiculopathy (Primary Dx) 06/16/2024 Telephone [facility] [address] [place] [address] Sherly Pichardo, BANDMILL OPERATOR TC: Visit Follow Up Plan 06/15/2024 9:45 AM EDT Office Visit [address] [address] Sherly Pichardo, BANDMILL OPERATOR Lumbar post-laminectomy syndrome (Primary Dx); Chronic obstructive pulmonary disease, unspecified COPD type ([facility]); Lumbar spondylosis; Urinary incontinence, unspecified type 06/15/[address] [address] Bobby David MD Durable Medical Equipment 06/15/[address] [address] Skye Melton RN APPLIANCE SERVICE SUPERVISOR Agreement and BPI Forms 06/15/2024 Travel 06/14/[address] [address] Skye Melton RN Reschedule APPLIANCE SERVICE SUPERVISOR Renewal appt 06/17/24 06/13/[address] [address] Bobby David MD ER Follow-up 06/12/2024 Orders Only [facility] External Provider, [facility] 06/06/2024 Refill [facility] [address] [place] [address] Bobby David MD 05/31/2024 1:15 PM EST Office Visit [facility] [address] [place] [address] Bobby David MD COPD (chronic obstructive pulmonary disease) with acute bronchitis (CMS/HCC) (CMS/HCC) (Primary Dx); Type 2 diabetes with complication (CMS/HCC); Rash 05/31/2024 Refill [facility] [address] [place] [address] Bobby David MD 05/28/2024 Refill [facility] [address] [place] [address] Bobby David MD 05/23/2024 Refill [facility] [address] [place] [address] Bobby David MD Chronic low back pain with sciatica, sciatica laterality unspecified, unspecified back pain laterality 05/18/2024 Telephone [facility] [address] [place] [address] Bobby David MD FYI 05/17/2024 Patient Outreach [facility] [address] [place] [address] Bobby David MD Transition Of Care (Tcm) (HDF scheduled. /) 05/17/2024 Telephone [facility] [address] [place] [address] Bobby David MD Hospital Follow-up 05/13/2024 Telephone [facility] [address] [place] [address] Bobby David MD 05/09/2024 Telephone [facility] [address] [place] [address] Bobby David MD Homecare Delivered (Adult size [...] Info) Description 08/05/2024 11:30 AM EDT Telemedicine [address] [address] Name, MD Bobby [address] [facility] [place] [address] 09/02/2024 1:00 PM EDT [facility] [place] [address] Skye Melton RN 11/02/2024 9:30 AM EDT [facility] [address] Name, MD Bobby [address] [place] [place] [address] Health Maintenance Due Date Last Done Comments [...] SDOH Screening 06/18/2024 06/19/2023 Diabetes: Hemoglobin A1C 09/22/20242 025, 05/31/2024, 02/04/2024, Additional history exists Alcohol/Substance [...] Smoking cessation General No Archana, Inga, PharmD Procedures Procedure Name Priority Date/Time Associated Diagnosis Comments US RENAL BI Routine 08/01/2024 4:08 PM EDT POCT GLUCOSE Routine 07/06/2024 11:06 AM EDT Type 2 diabetes mellitus with other specified complication, unspecified whether statistical programmer insulin use ([facility]) XR CHEST 2 VIEWS Routine 07/06/2024 9:58 AM EDT Pneumonia of right middle lobe [...] mellitus with other specified complication, unspecified whether mcfp insulin use (CMS/HCC) POCT GLUCOSE Routine 06/22/2024 3:57 PM EDT Type 2 diabetes mellitus with other specified complication, unspecified whether mcfp insulin use (CMS/HCC) XR CHEST 2 VIEWS [...] complication (CMS/HCC) Atherosclerosis of coronary artery of [place] heart, unspecified vessel or lesion type, unspecified whether angina present Pain of toe of left foot LIPID PANEL, STANDARD Routine 12/29/2023 11:17 AM EDT Type 2 diabetes with complication (CMS/HCC) Atherosclerosis of coronary artery of [place] heart, unspecified vessel or lesion type, unspecified [...] Recently Relevant to Health Maintenance Results * US RENAL BI (08/01/2024 4:08 PM EDT) Anatomical Region Laterality Modality Abdomen Ultrasound 08/01/2024 4:08 PM EDT Narrative 08/01/2024 4:09 PM EDT ? [facility] ?[address] ?[place] [address] ? Ultrasound Report ? Signed ? Patient: Marita Zapata ?MR#: MM ?? [id number] ? : 1960 ?Acct:[id number] ? Age/Sex: 63 / F ?ADM Date: 08/01/24 ? Loc: HO.US ? Attending Dr: Blayne Srinivasan MD ? Ordering Physician: Blayne Srinivasan MD ?? Date of Service: 08/01/24 ?? Procedure(s): US renal BI ?? Accession Number(s): [id number] ? cc: Blayne Srinivasan MD; Bobby David MD ? CLINICAL HISTORY: N20.0 - Calculus of [...] DD/ 1608 ? TD/TT: 08/01/24 1608 ? Process Coach: ? Procedure Note Rogelio, Image - 08/01/2024 [place] [address] Ultrasound Report Signed Patient: Marita Zapata [facility]#: [id number] : 1960Acct:[id number] Age/Sex: 63 / FADM Date: 08/01/24 Loc: HO.US Attending Dr: Blayne Srinivasan MD Ordering Physician: Blayne Srinivasan MD Date of Service: 08/01/24 Procedure(s): US renal BI Accession Number(s): [id number] cc: Blayne Srinivasan MD; Name,Bobby GRADY CLINICAL [...] 08/01/24 1609 DD/ 1608 TD/TT: 08/01/24 1608 Process Coach: [facility] External Provider IMG US PROCEDURES Final Result * POCT Glucose (07/06/2024 11:06 AM EDT) Only the most recent of3 resultswithin the time period is included. Glucose Blood, POC 140 60 - 200 mg/dL QC Media Lot # [id number] Lot# Expiration Date 82,625 Blood Capillary blood specimen / Unknown 07/06/2024 11:06 AM EDT Bobby David MD POINT OF CARE TEST ENTER/EDIT OR DERABLES Final Result * XR Chest 2 Views (07/06/2024 9:58 AM EDT) Only the most recent of2 resultswithin the time period is included. Anatomical Region Laterality Modality Chest Radiographic Ludivina ging 07/06/2024 9:58 AM EDT Narrative 07/06/2024 9:59 AM EDT ? [facility] ?[address] ?[place] [address] ?XRay Report ? Signed ? Patient: Ashley Lawrence,Marita M ?MR#: MM ?? [id number] ? : 1960 ?Acct:[id number] ? Age/Sex: 63 / F ?ADM Date: 04/08/25 ? Loc: HO.XRAY ? Attending Dr: Basia Herndon MD ? Ordering Physician: Basia Herndon ?? Date of Service: 07/05/24 ?? Procedure(s): XR chest 2V ?? Accession Number(s): [id number] ? cc: Basia Herndon; Name,Bobby GRADY ? [...] by Geoff Brown MD in OV> ? 07/06/24 0959 ? DD/ 7 ? TD/TT: 07/06/24957 ? Process Coach: ? Procedure Note Rogelio, Elie - 07/06/[address] [address] XRay Report Signed Patient: Marita Zapata MMR#: [id number] : 1960Acct:[id number] Age/Sex: 63 / FADM Date: 07/05/24 Loc: ANGELA Attending Dr: Basia Herndon MD Ordering Physician: Basia Herndon Date of Service: 07/05/24 Procedure(s): XR chest 2V Accession Number(s): [id number] cc: Basia Herndon; Name,Bobby GRADY CLINICAL HISTORY: [...] in OV> 07/06/24958 DD/ 7 TD/TT: 07/06/24957 Process Coach: Basia Herndon MD IMG XR PROCEDURES Edited Resul t - Final * POCT Rapid Influenza B RYDER ID NOW (06/22/2024 4:41 PM EDT) [facility] Influenza B Negative Negative, Indeterminate [facility] QC Media Lot # [id number] [facility] Lot# Expiration Date [facility] Swab 06/22/2024 4:41 PM EDT Basia Herndon MD POINT OF CARE TEST ENTER/EDIT ORDERABLES Final Result Performing Organization Address City/[facility]/ZIP Co de Phone Number [facility] [address] [place] [phone] * POCT Rapid Influenza A RYDER ID NOW (06/22/2024 4:41 PM EDT) [facility] Influenza A Negative Negative, Indeterminate [facility] QC Media Lot # [id number] [facility] Lot# Expiration Date [facility] Swab 06/22/2024 4:41 PM EDT Result [facility] Basia Herndon MD POINT OF CARE TEST ENTER/EDIT ORDERABLES Final Result Performing Organization Address [facility] Co de Phone Number [facility] [address] [place] [phone] * POCT Rapid Covid-19 BinaxNOW (06/22/2024 4:23 PM EDT) [facility] Rapid COVID Ag Negative QC Media Lot # [id number] Lot# Expiration Date ,026 Swab 06/22/2024 4:23 PM EDT Result [facility] Basia Herndon MD POINT OF CARE TEST ENTER/EDIT ORDERABLES Final Result * (ABNORMAL) POCT HGB A1C (06/22/2024 3:58 PM EDT) Only the most recent of2 resultswithin the time period is included. [facility] Hemoglobin A1C 8.4(A) 4.0 - 6.0 % QC Media Lot # [id number] Lot# Expiration Date , Blood 06/22/2024 3:58 PM EDT Basia Herndon MD POINT OF CARE TEST ENTER/EDIT ORDERABLES Final Result * POCT Urinalysis (06/15/2024 11:33 AM EDT) Pathologist [facility] Color, UA Yellow Clarity, UA Clear Glucose, UA 2+ 125++ Bilirubin, UA Negative Ketones, UA Negative Spec Grav, UA 1.020 Blood, UA Negative Negative, None Detected pH, UA 5.5 Protein, UA Negative Urobilinogen, UA 0.2 Leukocytes, UA Negative Negative, Rare, Trace Nitrite, UA Negative Negative, None Detected Appearance, UA clear QC Media Lot # [id number] Lot# Expiration Date , Urine 06/15/2024 11:3 3 AM EDT us Sherly Pichardo BANDMILL OPERATOR POINT OF CARE TEST ENTER/EDIT ORDERABLES Final Result * XR Lumbar Spine 2-3 Views (06/12/2024 6:34 PM EDT) Anatomical Region Laterality Modality Spine, L-spine Radiographic Ludivina ging 06/12/2024 6:34 PM EDT Narrative 06/12/2024 6:36 PM EDT ? [facility] ?[address] ?[place] [address] ?XRay Report ? Signed ? Patient: Marita Zapata ?MR#: MM ?? [id number] ? : 1960 ?Acct:[id number] ? Age/Sex: 63 / F ?ADM Date: 03/16/25 ? Loc: HO.ED ? Attending Dr: ? Ordering Physician: Catalina Kelly ?? Date of Service: 06/12/24 ?? Procedure(s): XR lumbar spine 2-3V ?? Accession Number(s): [id number] ? cc: Name,Bobby GRADY; Catalina Kelly ? CLINICAL HISTORY: severe lower back pain ? 3 views lumbar spine ? Comparison: MR/NV - MR LUMBAR SPINE WO CON - [...] DD/ 1834 ? TD/TT: 06/12/24 1834 ? Process Coach: ? Procedure Note Rogelio, Image - 06/12/2024 [place] [address] XRay Report Signed Patient: Marita Zapata [facility]#: MM [id number] : 1960Acct:[id number] Age/Sex: 63 / FADM Date: 06/12/24 Loc: HO.ED Attending Dr: Ordering Physician: Catalina Kelly Date of Service: 06/12/24 Procedure(s): XR lumbar spine 2-3V Accession Number(s): [id number] cc: Name,Bobby GRADY; Catalina Kelly CLINICAL HISTORY: severe lower back pain 3 views lumbar spine Comparison: MR/NV - MR LUMBAR SPINE WO CON - [...] in OV> 06/12/241834 DD/ 33 TD/TT: 06/12/241833 Process Coach: [facility] External Provider IMG XR PROCEDURES Final Result * (ABNORMAL) Albumin, Random Urine W/Creatinine (12/29/2023 11:20 AM EDT) Creatinine, Urine 157.96 mg/dL [facility] Microalbumin Urine 47.0 mg/L [facility] Microalbum Creatinine Ratio Ur 29.7(H) <30 ug/mg cr [facility] Comment:Albumin/Creatinine R atio Reference Ranges: Normal: < 30 ug/mg creatinine Microalbuminuria: 30 - 300 ug/mg creatinineClinical Albuminuria: > 300 ug/mg creatinine Urine (Urine, Random) 12/29/2023 11:20 AM EDT 12/29/2023 1:01 PM EDT Bobby David MD LAB URINE ORDERABLES Final Resul t [facility] [address] [place] [phone] [phone] * (ABNORMAL) Lipid Panel, Standard (12/29/2023 11:17 AM EDT) Triglycerides 172(H) <150 mg/dL [facility] Comment:Desirable Triglyceri de: less than 150 mg/dLBorderline High Triglyceride 150-199 mg/dLHigh Triglyceride: 200-499 mg/dLVery High Triglyceride: greater than or equal to 5OO mg/dL Cholesterol 140 <200 mg/dL [facility] Comment:Desirable Cholestero l: less than 200 mg/dLBorderline High Cholesterol: 200-239 mg/dLHigh Cholesterol: greater than 239 mg/dL LDL Cholesterol Calculated 61 <100 mg/dL [facility] Comment:Desirable LDL: less than 100 mg/dLNear Optimal/Above Optimal LDL: 110- 129 mg/dLBorderline High LDL: 130-159 mg/dLHigh LDL: 160-189 mg/dLVery High LDL: greater than or equal to 190 mg/dL HDL Cholesterol 45 >40 mg/dL [facility] Comment:Desirable HDL: great er than 40 mg/dL Note: This HDL assay may give artificially low results in patients with liver disease. Blood Venous blood specimen / Unknown 12/29/2023 11:17 AM EDT 12/29/2023 1:03 PM EDT us Bobby David MD LAB BLOOD ORDERABLES Final Resul t [facility] [address] [place] [phone] * (ABNORMAL) Colonoscopy (07/16/2022) Colonoscopy Abnormal( A) Normal Comment:repeat in 3-5 yrs Historical Provider [facility] Final Result * Mammography Report 1 (04/24/2021 [...] REFLEX HPV 16,18/45 (02/27/2021 10:24 AM EST) Pathologist [facility] Clinical Information: Postmenopausal [facility] COMMENT SEE COMMENT [facility] [...] has been evaluated with computer assisted technology. [facility] Fire Battalion Chief: SEE COMMENT [facility] Comment: CULP, CT(ASCP) CT screening location: [address] ??[address] HPV nRNA E6/E7 Not Detected Not Detected [facility] Comment: Methodology: Char Filter Tank Tender Head-Mediated Amplification This assay detects E6/E7 viral messenger RNA (mRNA) from 14 high-risk HPV types (16,18,31,33,35,39,45,51,52,56,58,59,66,68). ? The analytical performance characteristics of this assay have been determined by [employer]. The modifications have not been cleared or approved by the FDA. This assay has been validated pursuant to the CLIA regulations and is used for clinical purposes. ?? For additional information, please refer to http://education.Anagear/faq/ORE769j0 (This link if provided for information/ educational purposes only.) Interpretation/Re sult: Negative for intraepithelial lesion or malignancy. [facility] LMP: NONE GIVEN [facility] Prev. BX: HX ABNL [facility] Prev. PAP: 02/2018 [facility] SOURCE: None given [facility] Statement Of Adequacy: SEE COMMENT [facility] Comment: Satisfactory for evaluation. Endocervical/transformation zone component present. 02/27/2021 10:2 4 AM EST us Monisha Linton CNM LAB PATHOLOGY ORDERABLES Final Result [facility] [address] from Last 3 Months or Most Recently Relevant to Health Maintenance Insurance [facility] < [address] [place] [id number] Care Teams Counter Server Relationship Specialty Start Date End Date Name, MD Bobby [address] [place] [phone] PCP - General Family Medicine 06/01/15 Eloina 05/13/24
--- OUTSIDE RECORDS SUMMARY | 2024-08-02 10:03 | XMS_ITS | Data Portability ---
Author Organization [facility], Main Office Address [address] [place] [address] [address] [place] [address] Care Team Providers Care Maintenance Dispatcher Name Role Phone [facility] OTHER NAME, MOHINI Primary Care Provider Assessment Encounter Date Assessment Date Assessment LastModified by Organization Details LastModified Time 05/03/2024 05/03/2024 Labs 04/27:Na 129-K 4.0-Bun 38-Cr 0.7-wbc 15.9-hgb 15.2- hct 45-plt 240 [email or web address] Not available 05/03/2024 18:08:16 05/05/2024 05/05/2024 Labs 04/27:Na 129-K 4.0-Bun 38-Cr 0.7-wbc 15.9-hgb 15.2- hct 45-plt 240 [email or web address] Not available 05/05/2024 12:09:46 05/11/2024 05/11/2024 Labs 05/05: Na 144-K 3.9-Bun 19- Cr 0.7-wbc 13.8-hgb 15-hct 47.2 Labs 04/27:Na 129-K 4.0-Bun 38-Cr 0.7-wbc 15.9-hgb 15.2- hct 45-plt 240 Not available 05/11/2024 16:44:46 05/12/2024 05/12/2024 45 minutes spent on coordination of discharge. [email or web address] Not available 05/12/2024 11:03:36 Plan of Treatment [...] exacerbatio n of chronic obstructive pulmonary disease 527651018 Active 2024 Not Available [facility] 5 13:13:30 Pneumonia caused by Influenza A virus 020855308 Active 2024 Not Available [facility] 5 12:06:26 Pneumonia caused by respiratory syncytial virus 964711452 Active 2024 Not Available [facility] 5 12:06:27 Type 2 diabetes mellitus 78054571 Active 2024 Not Available [facility] 5 12:09:46 Essential hypertensio n 38884344 Active 2024 Not Available [facility] 5 12:10:17 Hypothyroid ism 92946382 Active 2024 Not Available [facility] 5 12:10:48 Gastroesoph ageal reflux disease without esophagitis 140340306 Active 2024 Not Available [facility] 12:11:49 Primary gout 61903409 Active 2024 Not Available [facility] 5 12:11:50 Muscle weakness 63722847 Active 2024 Not Available [facility] 5 09:55:06 Unsteady when standing 248447082 Active 2024 Not Available [facility] 5 09:56:09 Difficulty walking 415577001 Active 2024 Not Available [facility] 5 09:56:40 Chronic obstructive pulmonary disease 88161819 Active 2024 GEETA KWOK [address] [facility], [address], [place], [address] , [facility] 5 14:52:55 Leukocytosi s 339996760 Active 2024 from steriod use MIGUE BROOKSRD, [facility] [address], [address], [place], [address] , [facility] 5 14:54:46 Coronary arterioscle rosis 86790475 Active 2024 MIGUEANNETTE BRISENO, [facility] [address] [facility], [address], [place], [address] , [facility] 5 15:05:30 Gout 31180914 Active 2024 MIGUEANNETTE BRISENO, [address], [address], [place], [address] , [facility] 5 15:09:53 Allergic rhinitis 88616026 Active 2024 MIGUE BRIESNO, [facility] [address] [facility], [address], [place], [address] , [facility] 5 15:17:53 Smoker 69130804 Active 2024 MIGUE BRISENO, [facility] [address] [facility], [address], [place], [address] , [facility] 5 15:27:03 Uncomplicat ed asthma 651008413 Active 2024 Not Available [facility] 5 14:07:57 Old myocardial infarction 4889639 Active 2024 Not Available [facility] 5 14:08:17 Obstructive sleep apnea syndrome 96378316 Active 2024 Not Available [facility] 5 14:09:00 Disorder of nervous system due to type 2 diabetes mellitus 683185059 Active 2024 Not Available [facility] 5 14:09:32 Problem Notes None recorded. Medical Equipment None Reported. Allergies Allergen ID Allergen Name Allergen Category Reaction Reaction Severity Criticality Documentation Date Start Date Code Code System Note Provider Name and Address Organization Details Recorded Time 25974 Product containin g angiotens in-conver ting enzyme inhibitor (product) medicatio n angioedem a severe Not available 04/28/20242024 18973 009 SNOMED Not Available [facility] 15:23:36 39864 enalapril Not available Not available Not available high 04/28/20242017 3827 RxNorm Other react ion(s ): Anaph ylaxi s Chiquita Guardado MD [address] [place] [address], [address], [place], [address], [facility] [employer] [facility] 5 17:30:53 96011 metformin medicatio n Not available Not available Not available 04/28/20242024 6809 RxNorm Not Available [facility] 5 15:22:33 32802 hydromorp cb medicatio n Not available Not available high 04/28/20242022 3423 RxNorm Other react ion(s ): TINGL ING, PT DOES NOT LIKE THE FEELI NG MED GIVES HER Chiquita Guardado MD [address] [facility], [address], [place], [address], [facility] 5 17:31:40 32173 azithromy josephine medicatio n Not available Not available Not available 05/03/2024 53339 RxNorm Chiquita Guardado MD [address] [place] [address], [address], [place], [address], [facility] 5 17:30:27 61767 erythromy josephine medicatio n anaphylax is Not available high 05/03/20242010 4053 RxNorm Other react ion(s ): Hives /Urti caria , pustu les over entir e body, Unkno wn Other React ion(s ): Unkno wn Chiquita Guardado MD [address] [place] [address], [address], [place], [address], [facility] [employer] [facility] 5 17:31:13 01559 lisinopri l medicatio n Not available Not available Not available 05/03/2024 30946 RxNorm Chiquita Guardado MD [address] [place] [address], [address], [place], [address], [facility] 17:31:53 59881 metoprolo l Not available Not available Not available Not available 05/03/2024 6918 RxNorm Chiquita Guardado MD [address] [place] [address] [address], [place], [address], [facility] [employer] 17:32:14 Medications Name Sig Start Date Stop [...] Updated DateTime 5 165.1 cm 27.1 kg/m2 88230.1 2 g 78 /min 18 /min 97.5 [degF] 95 % 95 % 124 mm[Hg] 62 mm[Hg] Chiquita Guardado MD [address] [facility] [address], [place], [address] , [facility] 5 17:39:40 Date Recorded Body height Heart rate Respiratory rate Body temperature Oxygen saturation Oxygen saturation in Arterial blood by Pulse oximetry Systolic blood pressure Diastolic blood pressure Provider Name and Address Organization Details Last Updated DateTime 5 165.1 cm 86 /min 18 /min 97.5 [degF] 96 % 96 % 129 mm[Hg] 78 mm[Hg] JOHAN VU NP [address] [facility] [address], [place], [address] , [facility] 5 12:09:17 Date Recorded Body height Body temperature Respiratory rate Heart rate Oxygen saturation Oxygen saturation in Arterial blood by Pulse oximetry Provider Name and Address Organization Details Last Updated DateTime 5 165.1 cm 97.4 [degF] 20 /min 72 /min 95 % 95 % GEETA KWOK [address] [facility], [address], [place], [address], [facility] 5 16:23:28 Date Recorded Body height Heart rate Respiratory rate Body temperature Oxygen saturation Oxygen saturation in Arterial blood by Pulse oximetry Systolic blood pressure Diastolic blood pressure Provider Name and Address Organization Details Last Updated DateTime 165.1 cm 80 /min 20 /min 97.4 [degF] 95 % 95 % 155 mm[Hg] 65 mm[Hg] JOHAN VU NP [address] [facility], [address], [place], [address], [facility] 5 10:33:52 Date Recorded Body height Respiratory rate Oxygen saturation Oxygen saturation in Arterial blood by Pulse oximetry Provider Name and Address Organization Details Last Updated DateTime 05/04/2024 165.1 cm 20 /min 95 % 95 % GEETA KWOK [address] [facility], [address], [place], [address], [facility] 16:47:12 Social History Question Answer Notes LastModified by Organization Details LastModified Time Tobacco Smoking Status Former Smoker quit 2017, then started again, now none x 2 months. Chiquita Guardado MD [address] [facility], [address], [place], [address], [facility] 05/03/2024 22:40:28 Do You Have An Advance Directive? Yes Information not available 05/01/2024 What Is Your Level Of Alcohol Consumption? None Information not available 05/01/2024 What Is Your Code Status? Full Code Information not available 05/01/2024 Where Do You Live? [facility] With Information not available 05/03/2024 Legal Guardian? No Informati on not available 05/03/2024 Do You Have A Medical Power Of Tie Inspector? Yes Information not available 05/03/2024 What Was [...] Recorded Time Tdap 0 completed Samuel Felipe-Malik [facility] 04/29/2024 12:14:00 Tdap 3 completed Samuel Felipe-Malik [facility] 04/29/2024 12:14:06 Pneumococcal conjugate PCV 13 3 completed Samuel Felipe-Malik [facility] 04/29/2024 12:14:27 pneumococcal polysaccharide PPV23 0 completed Samuel Felipe-Malik [facility] 04/29/2024 12:14:43 influenza, unspecified formulation 1 completed Samuel [employer] [facility] 04/29/2024 12:15:03 influenza, unspecified formulation 2 completed Samuel [employer] [facility] 04/29/2024 12:15:20 influenza, unspecified formulation 3 completed Samuel Felipe-Malik [facility] 04/29/2024 12:15:25 influenza, unspecified formulation 4 completed Samuel Felipe-Malik [facility] 04/29/2024 12:15:30 SARS-COV-2 (COVID-19) vaccine, UNSPECIFIED 1 completed Samuel Felipe-Malik [facility] 04/29/2024 12:16:07 SARS-COV-2 (COVID-19) vaccine, UNSPECIFIED 1 completed Samuel Felipe-Malik [facility] 04/29/2024 12:16:12 SARS-COV-2 (COVID-19) vaccine, UNSPECIFIED 1 completed Samuel Chappell [facility] 04/29/2024 12:16:16 SARS-COV-2 (COVID-19) vaccine, UNSPECIFIED 2 completed Samuel Chappell [facility] 04/29/2024 12:16:21 SARS-COV-2 (COVID-19) vaccine, UNSPECIFIED 2 completed Samuel Chappell [facility] 04/29/2024 12:16:27 SARS-COV-2 (COVID-19) vaccine, UNSPECIFIED 3 completed Samuel Chappell [facility] 04/29/2024 12:16:41 SARS-COV-2 (COVID-19) vaccine, UNSPECIFIED 4 completed Samuel Chappell [facility] 04/29/2024 12:16:51 zoster, unspecified formulation 3 completed Samuel Chappell [facility] 04/29/2024 12:17:13 zoster, unspecified formulation 3 completed [facility] 04/29/2024 12:17:19 Past Encounters Encounter ID Performer Location Encounter Start Date Encounter Closed Date Diagnosis/Indication Diagnosis SNOMED-CT Code Diagnosis ICD10 Code Diagnosis Note [id number] GEETA KWOK [address] [place] [address] 04/29/2024 10:45:26 05/03/2024 09:36:15 Chronic obstructive pulmonary disease 36998687 J44.9 2/ RSV/Influe nzaon presentati on O2 sats as low as 83 % and tachypneic 26tx inpatient with IV steroids, neb tx and abxcont doxycyclin e BID for 2 more dayscont on neb tx prn, albuterol inhaler prncont trelegy, respimat, dupixent. roflumilas tnow on prednisone taper , resume 2.5 mg when tapercompl etedmonito r resp status. Type 2 asa betes mellitus 74805861 E11.9 hx of neuropathy On trulicity, Insulin SSC, lyrica, jardiancec ont lantus at hsrobaxin prn for neuropathy painmonito r BGL TID Hypothyroidism 32094741 E03.9 continue on levothyrox inemonitor tsh prn Coronary arteriosclerosis 19646169 I25.10 HX of HLD, HTNon statincont on asamonitor for cardiac sx Essential hypertension 42566642 I10 cont on coreg dailymonit or BP Gout 09704323 M10.9 cont allopurino l dailyfollo w uric acid level prn Smoker 89746713 F17.200 reports that she has not smoked in 1 monthnow on nicotine patch 21 mgprovide support for cessation Hyperlipidemia 65300390 E78.5 cont atorvastat inmonitor labs prn Gastroesop hageal reflux disease without esophagitis 304483261 K21.9 cont omeprazole dailymonit or GI sx Allergic rhinitis 557412 04 J30.9 cont on fluticason e, montelukas t, cetirizine Leukocytosis 310889238 D 72.829 chronic from chronic steriod usefollow labs Low back pain 897228105 M54.50 cont lido patch qdpercocet prnon robaxin for neuropathy as well [id number] Chiquita Guardado MD [facility] [address] [place] [address] 05/03/2024 17:29:21 05/16/2024 12:42:00 Chronic obstructive pulmonary disease 08766576 J43.8 S/P several recent exacerbati ons, now [...] as planned. Type 2 asa betes mellitus 01687709 E11.42 Some high sugars since here, likely due to prednisone , expect improvemen t as taper continues. Continue Lantus 35U BID, Trulicity 1.5 mg weekly, Jardiance 10 mg qd, and SSI.Contin ue Lyrica 100 mg TID and methocarbo mol 750 mg q 8 hrs prn for neuropathy pain.Monit or fingerstic ks TID and HgA1C as outpt. Hypothyroidism 52084788 E03.8 Continue on levothyrox ine 112 mcg qdMonitor TSH as outpt. Coronary arteriosclerosis 22334510 I25.10 No recent sxs.Contin ue atorvastat in 80 mg qd, carvedilol 6.25 mg BID (hold for SBP<90), and ASA 81 mg qd.Monitor for sxs.F/U with cardio as planned. Essential hypertension 80882855 I10 Good control on meds as above.Chantel tor BP and labs. Gout 48533443 M10.09 No current sxs.Contin ue allopurino l 100 mg qdMonitor for flare. Smoker 79892498 F17.200 No longer smoking since recent hospitaliz ations.Con tinue nicotine patch 21 mg qd, taper as outpt.Cont inue to encourage abstinence . Hyperlipidemia 95806873 E78.49 Continue atorvastat in 80 mg qdMonitor labs as outpt. Gastroesop hageal reflux disease without esophagitis 750662332 K21.9 No current sxs.Contin ue omeprazole qdMonitor GI sxs Allergic rhinitis 749937 04 J30.89 Continue fluticason e nasal spray, montelukas t, and cetirizine Monitor sxs. Leukocytosis 315109915 D 72.828 Thought to be due to prednisone .Monitor Low back pain 567359296 M54.59 Under fair control.Co ntinue robaxin and Lyrica as above and lidocaine patch qd, and Percocet 7.5/325 mg q 6 hrs prn.PT/OT as above. Intertrigo 51060339 L30. 4 Continue diflucan 150 mg qod x 3 doses and will start nystatin cream BID.Monito r for healing. Asthenia 93309777 R53.1 Very deconditio bernice.Needs PT/OT for strengthen ing, balance, gait training, safety and function.C ontinue fall precaution s.Monitor for safety. [id number] MIGUE BRISENO, POLITICAL DIRECTOR [facility] [address] [place] [address] 05/04/2024 11:59:27 05/16/2024 14:09:43 Viral pharyngitis 3910995 B34.9 throat and tonsil noted with erythema and slight swelling, not exudateswi ll add lozenges take 1 prn Q2 and warm water and salt rinses for comfort qid prn Intertrigo 17414582 L30. 4 acute onset over 1-2 dayserythe matous and scattered dry patchy rash noted covering vast majority of left and right buttockscu rrently rx diflucan qod for 3 dosesdue to pruritis will add clotrimazo le/beta BID for 10 daydiscuss ed with nursing will re eval in 2 days [id number] JOHAN VU NP [facility] [address] [place] [address] 05/05/2024 12:08:09 05/10/2024 11:42:42 Chronic obstructive pulmonary disease 84121118 J44.9 2/ RSV/Influe nzaDoing betterWean ed off P1Anxehvdy off prednisone .Doxy completed. Continue nebs and inhalers.C ombivent dose currently 2 inh bid, not typical but will not change as med managed by Pulmonolog ist.Monito r Type 2 asa betes mellitus 06338512 E11.9 BS borderline low in am and at lunchStill on prednisone taper.Disc ussed with pt.Plan -Continue trulicity and jardiance and SSIReduce lantus to 25 units q HS, continue 35 units in amAdd large portions to diet, refer to health navigator per pt. request, and assure HS snack (manuela crackers and PB on dinner tray)Monit or closely and adjust meds as needed. Hypothyroidism 79305297 E03.9 continue on levothyrox inemonitor tsh prn Coronary arteriosclerosis 24660451 I25.10 HX of HLD, HTNon statin, coreg, ASAmonitor for cardiac sx Essential hypertension 81727961 I10 cont on coreg dailymonit or BP Gout 09515037 M10.9 cont allopurino l dailyfollo w uric acid level prn Smoker 22706951 F17.200 reports that she has not smoked in 1 monthnow on nicotine patch 21 mgprovide support for cessation Hyperlipidemia 09954381 E78.5 cont atorvastat inmonitor labs prn Gastroesop hageal reflux disease without esophagitis 532975735 K21.9 cont omeprazole daily - came in on this doseUnsure of baseline, but will continue this dose for now, mahesh. with higher doses of prednisone .Consider dose taper when more stable and if stays LTC.monito r GI sx Allergic rhinitis 560423 04 J30.9 cont on fluticason e, montelukas t, cetirizine Leukocytosis 237481069 D 72.829 chronic from chronic steriod use - improving. 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 [id number] MIGUE BRISENO, POLITICAL DIRECTOR [facility] [address] [place] [address] 05/11/2024 13:31:15 05/12/2024 14:06:40 Type 2 diabetes mellitus 53583808 E11.9 BS borderline low in am and at lunchStill on prednisone taper.Cont inue trulicity and jardiance and SSIReduce lantus to 25 units q HS, continue 35 units in amMonitor closely and adjust meds as needed. Dermal mycosis 93887553 B36.9 Breast folds, buttocksCo ntinue diflucan and topical antifungal /steroid cream.Keep areas clean and dryMonitor closely. Gastroesop hageal reflux disease without esophagitis 681607352 K21.9 cont omeprazole daily - came in on this doseUnsure of baseline, but will continue this dose for now, mahesh. with higher doses of prednisone .Consider dose taper when more stable and if stays LTC.monito r GI sx Chronic ob structive pulmonary disease 93247720 J44.9 2/2 RSV/Influe nzaDoing betterWean ed off C4Picptgla off prednisone .Doxy completed. Continue nebs and inhalers.C ombivent dose currently 2 inh bid, not typical but will not change as med managed by Pulmonolog ist.Monito r Leukocytosis 015390705 D 72.829 chronic from chronic steriod use - improving. follow labs Essential hypertension 70296925 I10 cont on coreg dailymonit or BP Smoker 85996408 F17.200 reports that she has not smoked in 1 monthnow on nicotine patch 21 mgprovide support for cessation Pressure i njury of coccygeal region of back stage II 0055475145 3679791 L89.152 patient reporting coccyx painfollow ed by wound NPreiterat ed SQL APPLICATION DEVELOPER recommenda tions to Turn, reposition & offload Q2 hours & PRN to aid in wound healing. Encourage appropriat e dietary supplement ation to aid in wound healing. [id number] JOHAN VU NP [facility] [address] [place] [address] 05/12/2024 10:32:45 05/20/2024 10:27:09 Type 2 diabetes mellitus 90418814 E11.9 BS borderline low a few weeks ago, lantus reduced to 35 units q am, 25 units q hs.Remains on trulicity, jardiance, and lispro SSI.BS improved on reduced dose of lantus.Of note, prednisone taper ending 05/15.Pt. will continue to monitor BS at home and adjust insulin as needed. Dermal mycosis 99232665 B36.9 Breast folds, buttocks; now improving. Completed diflucan.M ay continue topical antifungal /steroid cream.Keep areas clean and dryMonitor closely. Gastroesop hageal reflux disease without esophagitis 541958701 K21.9 cont omeprazole daily Chronic ob structive pulmonary disease 59172473 J44.9 2/ RSV/Influe nzaResolve d.Weaned off B3Riathaue off prednisone .Doxy completed. Continue nebs and inhalers.M onitor Leukocytosis 891554879 D 72.829 chronic from chronic steriod use - improving. follow labs as outpt. Hypothyroidism 96543379 E03.9 continue on levothyrox inemonitor tsh prn Coronary arteriosclerosis 25598967 I25.10 HX of HLD, HTNon statin, coreg, ASAmonitor for cardiac sx Essential hypertension 91042619 I10 cont on coreg dailymonit or BP Gout 64689198 M10.9 cont allopurino l dailyfollo w uric acid level prn Smoker 37869329 F17.200 reports that she has not smoked in 1 monthnow on nicotine patch 21 mgprovide support for cessation - wishes to continue to not smoke upon d/c home. Hyperlipidemia 18236376 E78.5 cont atorvastat inmonitor labs prn Allergic rhinitis 935793 04 J30.9 cont on fluticason e, montelukas t, cetirizine Low back pain 412693046 M54.50 cont lido patch qdpercocet prnon robaxin for neuropathy as well Health Concerns Section Related Observation LastModified by Organization Detai ls LastModified Time None Recorded Concern Status LastModified by Organization Details LastModified Time None Recorded Advance Directives Directive Y: Payers Encounter Date Sequence Insurance Name Policy Number Policy Mendez Covered Member ID Mendez Member ID Guarantor Name 05/03/2024 1 [facility] - DOS ON OR AFTER 2022 - MEDICARE [place]VANTAGE [place]AC[place]/ADV ANTAGE - PPO) Marita Esthela Lawrence [id number] Marita Lawrence 05/04/2024 1 [facility] - DOS ON OR AFTER 2022 - [place]IC[place]V ANTAGE - PPO) Marita Proctor Melinda [id number] Marita Ashley Lawrence 05/05/2024 1 [facility] - DOS ON OR AFTER 2022 - [place]V ANTAGE - PPO) Marita Esthela Lawrence [id number] Marita Lawrence 05/11/2024 1 [facility] - DOS ON OR AFTER 2022 - [place]/ADV ANTAGE - PPO) Marita Esthela Lawrence [id number] Marita Lawrence 05/12/2024 1 [facility] - DOS ON OR AFTER 2022 - [place]/ADV ANTAGE - PPO) Marita Lawrence [id number] Marita Lawrence Notes Date Note Type Note [...] influenza also [facility]. [facility] and hypoxia.She had an elevated WBC attributed to steroid use.CXR was non-acute.She was tachycardic and needing oximask to maintain sats >90%.She was restarted on solumedrol and doxy, continued on duonebs, and usual inhalers.Seen by pulmonary who recommended higher dose and more prolonged steroids.She was able to be weaned back to home level of O2, 2L by ND, but remained weak and wastransferred here for [...] with post-op hypothyroidism. Chiquita Guardado MD [address] [facility], [address], [place], [address], [facility] 05/14/2024 17:33:09 5 text/html Marita is seen [...] dot and spread quickly. GEETA KWOK [address] [facility], [address], [place], [address], [facility] 05/13/2024 16:49:37 5 text/html Marita is seen [...] snack. She is requesting to see the health navigator.She then shows me the rash on her [...] with post-op hypothyroidism. JOHAN VU NP [address] [facility], [address], [place], [address], [facility] [employer] 05/05/2024 12:42:06 5 text/html This is a [...] is nio acute concerns. GEETA KWOK [address] [facility], [address], [place], [address], [facility] [employer] 05/11/2024 16:45:23 5 text/html Marita is seen [...] with post-op hypothyroidism. JOHAN VU NP [address] [facility], [address], [place], [address], [facility] [employer] [facility] 05/20/2024 10:22:41 OBGyn Episode No OBEpisode recorded.
--- OUTSIDE RECORDS SUMMARY | 2024-08-02 10:03 | XMS_ITS | Data Portability ---
Author Organization [employer], [place] [facility] [employer] Address [address] [place] [id number] Care Team Providers Care Guest Attendant Name Role Phone HIM CCA OTHER NAME, MOHINI Primary Care Provider Assessment Encounter Date Assessment Date Assessment LastModified by Organization Details LastModified Time 05/27/2023 05/27/2023 I provided real -time medical direction via phone for this encounter, and was available for additional phone based assistance as needed. I have reviewed and agree with the Assessment and Plan as documented by the Firmware Developer. We discussed the diagnostic uncertainty of home [...] to call 911- verbalized understanding of instructions [email or web address] Not available 05/27/2023 10:52:57 08/31/2023 08/31/2023 Ms. [...] did a neb one hour prior to deck steward arrival. VSS, SpO2 95% on RA. Firmware Developer on site reports wheezing b/l. Allergy to [...] Ag, QL [place], respiratory specimen [address], [id number] 4 18:31:32 rapid flu (A+B) [address], [address] 4 18:31:52 BMP, serum or plasma [address], [address] 4 18:32:18 rapid SARS CoV 2 Ag, QL IA, respiratory specimen [address], [address] 4 09:38:44 rapid flu (A+B) [address], [address] 4 09:37:23 rapid strep group A, throat [address], [address] 4 09:37:50 BMP, serum or plasma 2023 024 NANCY [facility], [address] [place] [address], [address] 4 09:38:18 rapid SARS CoV 2 Ag, QL IA, respiratory specimen 2023 024 [email or web address] [facility], [address] [place] [address], [id number] 4 11:19:29 rapid flu (A+B) 2023 024 [email or web address] 0 [facility], [address] [place] [address], [id number] 4 11:19:31 rapid strep group A, throat 2023 024 [email or web address] 0 [facility], [address] [place] [address], [id number] 4 11:19:33 glucose, fingerstick , blood 2023 024 [email or web address] 0 [facility], [address] [place] [address], [id number] 4 11:30:51 Referral None recorded. Procedures None recorded. Surgeries None recorded. Imaging None recorded. Medication Orders methylpredn isolone sod succ (PF) 125 mg/2 mL solution for injection 2023 [facility], [place], [address] [place] [address], [id number], 4 11:53:19 doxycycline hyclate 100 mg capsule 2023 024 [facility], [address] [place] [address], [id number], 4 14:23:57 doxycycline hyclate 100 mg capsule 2023 024 [facility], [place], [address] [place] [address], [id number], 4 11:53:19 ipratropium 0.5 mg-albutero l 3 mg (2.5 mg base)/3 mL nebulizatio n soln 2023 024 [facility], [place], [address] [place] [address], [id number], 4 11:53:19 prednisone 10 mg tablet 2023 024 [facility], [address] [place] [address], [id number], 4 14:23:58 magnesium sulfate 2 gram/50 mL in 0.9 % sodium chloride IV piggyback 2023 024 [facility], [place], [address] [place] [address], [id number], 4 11:53:19 cefpodoxime 200 mg tablet 2023 024 [facility], [address] [place] [address], [id number], 4 13:59:54 prednisone 20 mg tablet 2023 024 [facility], [address] [place] [address], [id number], 4 17:38:03 prednisone 10 mg tablet 2023 024 [facility], [address] [place] [address], [id number], 4 13:59:54 prednisone 10 mg tablet 2023 024 [facility], [address] [place] [address], [id number], 4 12:00:49 prednisone 20 mg tablet [address] [facility], [address] [place] [address], [id number], 4 11:33:48 prednisone 10 mg tablet 2023 024 [email or web address] [id number], [address] [facility], [place], [address], 4 11:18:33 albuterol sulfate 2.5 mg/3 mL (0.083 %) solution for nebulizatio n 2023 024 [email or web address] 0 Not available 4 11:19:26 prednisone 20 mg tablet 2023 024 [email or web address] 0 Not available 4 11:19:25 prednisone 20 mg tablet 2023 024 [facility], [address] [place] [address], [id number], 4 13:43:28 Patient TargetsNo targets recorded. Patient InstructionsNo instructions recorded. Reason for Referral None Reported. Results Created Date Observation Date Name Description Value Unit Range Abnormal Flag Note LastModifiedBy Organization Detail LastModifiedTime 05/27/1905/27/2023 gluco se, david harman k, blood Blood Glucose: mg/dl 302 Not Available [facility] [address] [place] [address], [id number] 05/27/2023 11:19:35 05/27/19 24 05/27/2023 rapid flu (A+B) Flu negati ve Not Available [facility] [address] [place] [address], [id number] 05/27/2023 10:53:07 05/27/19 24 05/27/2023 rapid strep group A, throa t Strep negati ve Not Available [facility] [address] [place] [address], [address] 05/27/2023 11:12:09 05/27/19 24 05/27/2023 rapid SARS CoV 2 Ag, QL IA, respi rator y speci men rapid SARS CoV 2 Ag, QL IA, respiratory specimen negati ve Not Available [facility] [address] [place] [address], [address] 05/27/2023 10:53:06 12/24/19 24 12/24/2023 rapid flu (A+B) Flu negati ve Not Available [facility] ed [address] [place] [address], [id number] 12/24/2023 11:22:03 12/24/19 24 12/24/2023 rapid SARS CoV 2 Ag, QL IA, respi rator y speci men rapid SARS CoV 2 Ag, QL IA, respiratory specimen negati ve Not Available [facility] ed [address] [place] [address], [address] 12/24/2023 11:22:00 Result Notes None recorded. Medical Equipment None Reported. Allergies Allergen ID Allergen Name Allergen Category Reaction Reaction Severity Criticality Documentation Date Start Date Code Code System Note Provider Name and Address Organization Details Recorded Time 4632 azithromy josephine medicatio n Not available Not available Not available 05/27/2023 87230 RxNorm Soila Langston MD [address] [place] [address],[address], [place], [address], [employer], [employer] 4 12:02:49 4633 Product containin g angiotens in-conver ting enzyme inhibitor (product) medicatio n Not available Not available Not available 05/27/2023 24543 009 SNOMED Soila Langston MD [address] [place] [address],[address], [place], [address], [employer], [employer] 4 12:02:55 4634 metformin medicatio n Not available Not available Not available 05/27/2023 6809 RxNorm Soila Langston MD [address] [place] [address],[address], [place], [address], [employer], [employer] 4 12:03:02 4635 Dilaudid medicatio n Not available Not available Not available 05/27/2023 78518 3 RxNorm AMS Soila Langston MD [address] [place] [address],[address], [place], [address], [employer], [employer] 4 12:03:32 6317 erythromy josephine medicatio n Not available Not available Not available 12/24/2023 4053 RxNorm BRANDT ROJO MD [address] [place] [address],[address], [place], [address], [facility] - [employer], [employer] 4 11:27:47 6318 metoprolo l Not available [...] Not Available Not Available No t Available [employer] Ultra Test strips USE DIRECTED TO TEST [...] MIX AND DRINK BOTTLE DIRECTED BY [facility] t active Not Available Not Available No [...] Details Last Updated DateTime 4 84 /min 53635.8 g 20 /min 98.4 [degF] 152.4 cm 98 % 98 % 137 mm[Hg] 98 mm[Hg] Not Available [employer] 4 10:52:14 Date Recorded Oxygen saturation Oxygen saturation in Arterial blood by Pulse oximetry Heart rate Body temperature Respiratory rate Systolic blood pressure Diastolic blood pressure Provider Name and Address Organization Details Last Updated DateTime 4 93 % 93 % 92 /min 98 [degF] 20 /min 190 mm[Hg] 100 mm[Hg] Not Available [employer] 4 11:12:07 Date Recorded Oxygen saturation Oxygen saturation in Arterial blood by Pulse oximetry Body height Heart rate Respiratory rate Body weight Body temperature Systolic blood pressure Diastolic blood pressure Provider Name and Address Organization Details Last Updated DateTime 4 95 % 95 % 165.1 cm 85 /min 18 /min 57361.6 4 g 97.4 [degF] 125 mm[Hg] 86 mm[Hg] Not Available [employer] 4 11:27:44 Date Recorded Heart rate Body weight Respiratory rate Body temperature Body height Oxygen saturation Oxygen saturation in Arterial blood by Pulse oximetry Systolic blood pressure Diastolic blood pressure Provider Name and Address Organization Details Last Updated DateTime 4 96 /min 42391.6 4 g 18 /min 97.9 [degF] 165.1 cm 91 % 91 % 129 mm[Hg] 71 mm[Hg] Not Available [employer] [employer] 4 17:19:19 Date Recorded Oxygen saturation Oxygen [...] Diagnosis Note Soila Langston MD Main - [address] [address] 05/27/2023 10:52:11 05/27/2023 17:26:09 Acute exacerbation of chronic obstructive pulmonary disease 971152796 J44.1 pat has tessalon alysiaes-- has not taken- advised 1 tid while ill/ was told by pcp to do duo neb q4 hr prn- 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 [id number] Zev Leger MD Main - [address] [address] 07/26/2023 11:12:02 07/26/2023 17:20:43 Acute exacerbation of chronic obstructive pulmonary disease [id number] J44.1 This 62-year-ol d female with COPD called [facility] because of increased dyspnea. She uses several inhalers and prednisone 5 mg daily. She doesn't qualify for home oxygen. I ordered a prednisone taper. She will follow-up with her PCP. The patient agreed with this plan. Low back pain [id number] M54.50 [id number] Dasha Eubanks MD [facility] [address] [place] [phone] 08/31/2023 11:27:40 09/01/2023 12:35:19 Acute exacerbation of chronic obstructive pulmonary disease [id number] J44.1 [id number] Santos Santoyo MD [facility] [address] [place] [address] 10/19/2023 17:19:16 10/20/2023 09:43:42 Acute exacerbation of chronic obstructive pulmonary disease [id number] J44.1 [id number] BRANDT ROJO MD [facility] - [address] [address] 12/24/2023 11:18:42 12/24/2023 14:43:17 Acute exacerbation of chronic obstructive pulmonary disease [id number] J44.1 Evaluation in the field was performed by my deck steward colleague, as noted above, I provided real-time [...] the ED for further evaluation . An [facility]. Rapid COVID and flu tests were [...] with the first dose given by the deck steward. -Continue Zyrtec daily-Afte r she received the [...] the ED for further evaluation . An [facility]. Primary care, consider__ _ Dispositio n: [...] Mendez Member ID Guarantor Name 05/27/2023 1 [facility] - DOS ON OR AFTER 2022 - DUAL ELIGIBLE - LONG TERM OPTIONS AND ONE CARE (MEDICARE REPLACEMENT/ADV ANTAGE - HMO) Marita Lawrence [id number] Marita Lawrence 07/26/2023 1 [facility] - DOS ON OR AFTER 2022 - DUAL ELIGIBLE - LONG TERM OPTIONS AND ONE CARE (MEDICARE REPLACEMENT/ADV ANTAGE - HMO) Marita Lawrence [id number] Marita Lawrence 08/31/2023 1 [facility] - DOS ON OR AFTER 2022 - DUAL ELIGIBLE - LONG TERM OPTIONS AND ONE CARE (MEDICARE REPLACEMENT/ADV ANTAGE - HMO) Marita Lawrence [id number] Marita Lawrence 10/19/2023 1 [facility] - DOS ON OR AFTER 2022 - DUAL ELIGIBLE - LONG TERM OPTIONS AND ONE CARE (MEDICARE REPLACEMENT/ADV ANTAGE - HMO) Marita Lawrence [id number] Marita Lawrence 12/24/2023 1 [facility] - DOS ON OR AFTER 2022 - DUAL ELIGIBLE - LONG TERM OPTIONS AND ONE CARE (MEDICARE REPLACEMENT/ADV ANTAGE - HMO) Marita Lawrence [id number] Marita Lawrence Notes Date Note Type Note Provider Name and Address Organization Details Recorded Time 05/27/2023 text/html HPI: Patient at home with known COPD. Not on oxygen at baseline. 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 O2 sat at baseline is 96% drops to 92% with exertion. .................. .................. .................. .................. .................. .................. .................. ............... CRC Nurse Triage Notes (Tashia Lazo): Comments: CRC RN DID NOT NEED FURTHER INFO .................. .................. .................. .................. .................. .................. .................. ............... Firmware Developer Note From Cullen Joseph: Pt caox3 answers [...] home. 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 Pt [...] BGL 306mg/dl (no food or insulin today) [facility] orders albuterol neb, prednisone 40mg PO, administered [...] throat except when coughing Soila Langston MD [address] [place] [address],[address], [place], [address], [employer] 05/27/2023 12:35:05 07/26/2023 text/html CRC Nurse Triage Notes (Miko Vogt): Chief Complaints: Shortness of Breath/Dyspnea PMH: Hypertension, COPD/Asthma, Diabetes, Heart Disease Allergies: Unknown Comments: Tire Maintenance Technician verified the member's name//address and phone number. [...] emergency treatment if needed -HODA Whyte MD [address] [place] [address],[address], [place], [address], [employer] 07/30/2023 06:44:37 08/31/2023 text/html HPI: Call returned [...] in clear full sentences. No distress noted motion study engineer. Pt advised of disposition, agrees to [facility] for exam as declined ER. Reviewed home care advise, ER precautions and reasons to call back. Verified contact information and allergies. .................. .................. .................. .................. .................. .................. .................. ............... CRC Nurse Triage Notes (Tashia Lazo): Comments: CRC RN DID NEED FURTHER INFO .................. .................. .................. .................. .................. .................. .................. ............... Firmware Developer Note From Ben Delacruz: [facility] visit for [...] cough with thick white mucus. consulted with [facility] Dr Eubanks, who prescribed 40 mg of Prednisone to be given on scene with remainder of prescription called the patient's Pharmacy. Reviewed red flags for ED. patient education provided. [facility] Medication Orders: prednisone 20 mg tablet: Administered .................. .................. .................. .................. .................. .................. .................. ............... Disposition: Fulfilled Dasha Eubanks MD [address] [facility],[address], [place], [address], [employer] 08/31/2023 17:40:50 10/19/2023 text/html CRC Nurse Triage Notes (Miko Vogt): Reason For Request: sob/hx COPD Chief Complaints: Shortness of Breath/Dyspnea PMH: Hypertension, COPD/Asthma, Diabetes, Heart Disease Allergies: Metoprolol Comments: Tire Maintenance Technician verified the member's name//address and phone number. [...] emergency treatment if needed -Kiran Vogt, RN Firmware Developer POC Test Results from Ben Delacruz - ALS Rapid influenza antigen (19:05:46) Flu: - Rapid COVID antigen (19:05:52) COVID: - .................. .................. .................. .................. .................. .................. .................. ............... Firmware Developer Note From Ben Delacruz: [facility] visit for female pt. Pt complains of [...] swabs run and both negative. Consulted with [facility] Dr. Santoyo who prescribed prednisone and cefpedoxime. First dose of prednisone given on scene with remainder of script sent to pharmacy. Reviewed red flags. Pt education provided. .................. .................. .................. .................. .................. .................. .................. ............... Disposition: Fulfilled Santos Santoyo MD [address] [place] [address],[address], [place], [address] 10/19/2023 23:50:40 12/24/2023 text/html [facility] Nurse Triage Notes (Miko Vogt): Reason For Request: Pt reporting COPD exacerbation Chief Complaints: Shortness of Breath/Dyspnea, COPD PMH: Hypertension, COPD/Asthma, Diabetes, Heart Disease Allergies: Metoprolol Comments: Tire Maintenance Technician verified the member's name//address and phone number. [...] emergency treatment if needed -H. Vogt, RN Firmware Developer Organization Information for Kal [employer] Business Legal Name: [employer] Address: [address] [place] [address], [place] [address], [place] Maker: Bk COSBY No.: [id number] Firmware Developer POC Test Results from Kal Hathaway iSTAT [...] .................. .................. .................. .................. .................. .................. ............... Firmware Developer Note From Kal Hathaway: Dispatched to above [...] pink warm and dry, good radial pulse. [facility] contacted, ordered Chem 8, IV, Solumedrol, Covid and Flu test and Duoneb. 18g IV established, R AC, lab draw preformed, ISTAT checked, results uploaded. Covid-19 and Flu test checked, both negative. Patient started on Duoneb. 125mg Solumedrol administered IV. Patient reassessed, SPO2 still high 80s on RA, still tachypneic. [facility] updated, ordered 2g Mag IV. Patient administered 2g Mag IV. Patient reassessed with no change. [facility] updated, ordered additional Duoneb. Neb administered. Patient walked about 15 steps to bathroom, became tachypneic in the 30s. [facility] updated, recommends transport to ER for further evaluation. Patient agrees with this. 911 contacted. [facility] responded. Verbal report given to [facility] Firmware Developer, took over patient care. Patient being transported to [facility]. SC8 clear. EOR. .................. .................. .................. .................. .................. .................. .................. ............... Disposition: Fulfilled BRANDT ROJO MD [address] [facility],[address], [place], [address], [employer] [facility] [place] 12/24/2023 13:27:13 OBGyn Episode No OBEpisode recorded.
--- OUTSIDE RECORDS SUMMARY | 2024-08-02 10:03 | XMS_ITS | Encounter Summary ---
Author Organization [employer] Address [address] [facility] [address] [place] [address] Care Team Providers Care Sanitation Superintendent Name Role Phone Name, Bobby GRADY Primary Care Provider [phone] Reason for Visit * Reason Onset Date Comments Med Refill 07/27/2024 Encounter Details Date Type Department Care Team ([facility] st Contact Info) Description 07/27/2024 Refill [facility] [address] [place] [address] Name, MD Bobby [address] [place] [address] Chronic low back pain with sciatica, sciatica [...] the past 12 months, has t he [employer], gas, oil or water [employer] threatened to shut off services in your [...] 07/28/2024 9:31 AM EDT [employer] checked by mortgage or loan underwriter on 07/28/24. Pt picked up a 28 day supply of oxyCODONE- acetaminophen (Percocet) 7.5-325 MG tablet on 07/01/24. Pt not due for refill until 07/29/24. Medication pended to PCP with a starting date of 07/29/24 for review. Message forwarded to PCP to review and advise. * Telephone Encounter - Di Campos RN - 07/27/2024 11:53 AM EDT [employer] checked by mortgage or loan underwriter on 07/27/24. Pt picked up a 28 day supply of oxyCODONE- acetaminophen (Percocet) 7.5-325 MG tablet on 07/01/24. Pt not due for refill until 07/29/24. Message forwarded to blue team nurses box for 07/28/24 to review [employer] and pend medication to PCP. * Telephone Encounter - Shahnaz Dickerson LPN - 07/27/2024 11:32 AM EDT Received request on oxyCODONE-acetaminophen (Percocet) 7.5-325 MG tablet documented in this encounter Plan of Treatment Upcoming Encounters Date Type Department Care Team (Late st Contact Info) Description 08/05/2024 11:30 AM EDT Telemedicine [address] [address] NameBobby MD [address] [place] [address] 09/02/2024 1:00 PM EDT Telemedicine [address] [address] Skye Melton RN 11/02/2024 9:30 AM EDT Office Visit [address] [address] NameBobby MD [address] [place] [address] documented as of this encounter Goals Goal [...] documented as of this encounter Care Teams Sanitation Superintendent Relationship Specialty Start Date End Date Name, MD Bobby [address] [place] [address] PCP - General Family Medicine 06/01/15 [place] 05/13/24 documented as of this encounter
--- OUTSIDE RECORDS SUMMARY | 2024-08-02 10:03 | XMS_ITS | Encounter Summary ---
Author Organization [employer] Address [address] [place] [address] [address] [place] [address] Care Team Providers Care Oracle R12 Developer Name Role Phone Name, Bobby GRADY Primary Care Provider [phone] Inga Magaña PharmD Unavailable [phone] Reason for Visit * Reason Comments Med Refill Encounter Details Date Type Department Care Team (Late st Contact Info) Description 10/03/2022 Refill [facility] [address] [place] [address] Name, MD Bobby [address] [place] [address] Lumbar radiculopathy Social History Tobacco Use Types [...] Info) Description 08/05/2024 11:30 AM EDT Telemedicine [address] [address] Name, MD Bobby [address] [place] [address] 09/02/2024 1:00 PM EDT Telemedicine [address] [address] Skye Melton, HODA 11/02/2024 9:30 AM EDT Office Visit [address] [address] Name, MD Bobby [address] [place] [address] documented as of this encounter Visit Diagnoses Diagnosis Lumbar radiculopathy Thoracic or lumbosacral neuritis or radiculitis, unspecified documented in this encounter Additional Health Concerns Assessment Noted Time PHQ-9 Depression Total Score: 0 03/11/20 11:47 AM EST documented as of this encounter Care Teams Oracle R12 Developer Relationship Specialty Start Date End Date Name, MD Bobby [address] [place] [address] PCP - General Family Medicine 06/01/15 Inga Magaña PharmD [address] [place] [address] Pharmacist Internal Medicine 01/07/23 09/29/23 Eloina 05/13/24 documented as of this encounter
--- OUTSIDE RECORDS SUMMARY | 2024-08-02 10:03 | XMS_ITS | Encounter Summary ---
Author Organization [employer] Address [address] [place] [address] 7[address] [place] [address] Care Team Providers Care Architecture Technician Name Role Phone Name, Bobby GRADY Primary Care Provider Inga Magaña PharmD Unavailable Encounter Details Date Type Department Care Team (Late Contact Info) Description 09/01/2022 Abstract [facility] MED[facility]INE [address] [place] [address] NameBobby MD [address] [place] [address] Social History Tobacco Use Types Packs/Day Years [...] Info) Description 08/05/2024 11:30 AM EDT Telemedicine [facility] [address] [place] [address] [phone] Bobby David MD [address] [place] [address] 09/02/2024 1:00 PM EDT Telemedicine [facility] [address] [place] [address] Skye Melton, HODA 11/02/2024 9:30 AM EDT Office Visit [address] [address] Name, [place] [address] documented as of this encounter Visit Diagnoses Not on filedocumented in this encounter Additional Health Concerns Assessment Noted Time PHQ-9 Depression Total Score: 0 03/11/20 22 11:47 AM EST documented as of this encounter Care Teams Architecture Technician Relationship Specialty Start Date End Date Name, [place] [address] PCP - General Family Medicine 06/01/15 Inga Magaña PharmD [address] [place] [address]51 Pharmacist Internal Medicine 01/07/23 09/29/23 Eloina 05/13/24 documented as of this encounter
--- OUTSIDE RECORDS SUMMARY | 2024-08-02 10:03 | XMS_ITS | Patient Health Record ---
Author Organization [facility] Address [address] [place] [address] Care Team Providers Care Fire Information Officer Name Role Phone Name Bobby GRADY Primary Care Provider Brooks Carbajal [phone] Allergies Allergen (clinical drug ingredient) Drug/Non Drug [...] Problem Status W/U Status Risk Notes Problem 248346236 Encounter for screening for malignant neoplasm of colon (Z12.11) Active confirmed Problem 574025971 Family history o f colon cancer (Z80.0) Active confirmed Problem 85620571 Constipation, unspecified constipation type (K59.00) Active confirmed Problem [id number] History of colonic polyps (Z86.010) Active confirmed Plan Of Treatment Future Test Test Name Order Date COLONOSCOPY 10/24/2016 Insurance Providers Payer Name Payer Address Payer Phone Subscriber Number Group Number Insured Name Patient Relationship to Insured Coverage Start Date Coverage End Date MEDICARE OF [place] [address] NIYA OLIVEIRA [id number] APURVA TANG Self - patient is the insured MEDICAID [facility] [address] [place] [address] [id number] [id number] Self - patient is the insured Medical (General) History Medical History History ICD Code COPD/Asthma KIDNEY STONE-2012 IDDM Hypertension HERNIATED DISK X4 in neck and lower back ARTHRITIS KNEES AND HIPS Multiple colonoscopies since --history of colon polyps--last colonoscopy was in 2009--negative GERD--EGD in 2009--no esophagitis--minim al Denies SC,CVA,renal disease Surgical History Surgery Date(Month/Year) LUMPECTOMY --Benign Cholecystectomy Tonsillectomy Kidney stone--right
[2024-08-02] MEDS: gadobutroL 10 ML VIAL IVPUSH (10:24)
== END 2024-08-02 09:13 | disposition home or self-care (01) ==
LOC: HO.MRI 09:12
PROVIDERS: PCP Internal Medicine Geriatric Medicine; Visit Provider Registered Nurse
DX: M54.16 Radiculopathy, lumbar region (principal); M96.1 Postlaminectomy syndrome, not elsewhere classified
CPT/HCPCS: 72158; A9585

== ENCOUNTER 2024-08-11 09:23 | Outpatient (AMB) | payer OTHER, SELFPAY ==
--- NOTE | 2024-08-11 09:27 | A.OFFVIS_ITS ---
Intake Visit Reasons: 6m/US(set) Intake Note: Patient presents today for follow up on: bialteral nephrolithiasis and ulrasound results Imaging Completed: 08/01/24 Urology Medications: Allopurinol, Vitamin B6 Antibiotic Allergy: Erythromycin Blood Thinner: Aspirin Knotter Hand Required: No Accompanied by: Self / Same As Patient Allergies HANK Inhibitors [HANK INHIBITORS] Allergy (Severe, Verified 08/11/24 10:02) ANGIO EDEMA enalapril Allergy (Severe, Verified 08/11/24 10:02) Anaphylaxis erythromycin base [ERYTHROMYCIN BASE] Allergy (Severe, Verified 08/11/24 10:02) HIVES ALL OVER metformin Allergy (Verified 08/11/24 10:02) Unknown hydromorphone [From DILAUDID] Adverse Reaction (Severe, Verified 08/11/24 10:02) TINGLING, PT DOES NOT LIKE THE FEELING MED GIVES HER Medication List - Last Reconciled 08/11/24 by GEETA Bal- allopurinol 100 mg PO DAILY 90 days arm brace (HANK Elbow Brace) As directed aspirin 81 mg PO BEDTIME atorvastatin 80 mg See Protocol PO BEDTIME blood sugar diagnostic (FreeStyle Lite Strips) As directed carvedilol 6.25 mg PO BID cetirizine 10 mg PO DAILY PRN docusate sodium 1 cap PO BEDTIME dulaglutide (Trulicity) 1.5 mg subcut WE@0900 dupilumab (Dupixent) 300 mg subcut Q2W empagliflozin (Jardiance) 10 mg PO DAILY fluticasone propionate 50 mcg/actuation 1 spray intranasal DAILY PRN hkqnofwzgab-vausfpsxl-oxesbqjo 100-62.5-25 mcg (Trelegy Ellipta) 1 ea inhalation DAILY insulin aspart U-100 (Novolog FlexPen U-100 Insulin aspart) 6 - 10 sliding scale doses See Protocol subcut TIDAC insulin glargine (Lantus Solostar U-100 Insulin) 35 units subcut BID ipratropium-albuterol 0.5 mg-3 mg(2.5 mg base)/3 mL 3 mL inhalation QID PRN ipratropium-albuterol 0.5 mg-3 mg(2.5 mg base)/3 mL 3 mL inhalation RQ4H WHILE AWAKE PRN ipratropium-albuterol 20-100 mcg/actuation (Combivent Respimat) 2 puffs inhalation BID lancets (TRUEplus Lancets) As directed levothyroxine 112 mcg PO DAILY@0600 lidocaine 5% 1 patch topical DAILY methocarbamol 750 mg PO Q8H PRN montelukast 10 mg PO BEDTIME naloxone 4 mg/actuation 1 spray intranasal ONCE PRN nebulizers As directed omeprazole 20 mg PO BID@0630,1630 oxycodone-acetaminophen 7.5-325 mg 1 tab PO Q6H PRN prednisone 5 mg PO DAILY pregabalin 100 mg PO TID pyridoxine (vitamin B6) 50 mg PO DAILY roflumilast 500 mcg PO DAILY sennosides (senna) 8.6 mg PO BID Ventolin HFA 90 mcg/actuation (albuterol sulfate) 2 puffs inhalation Q4-6H PRN NS HPI Comments Details: Marita is a pleasant 63-year-old female patient of Dr. David. She has a past medical history of tubular adenoma, diabetes, obstructive sleep apnea, irritable bowel syndrome, hyperthyroidism, polycythemia, smoker, vitamin-D deficiency, goiter, pulmonary nodules, and pneumonia. She presents to the office today for a follow up of her nephrolithiasis. In discussion with the patient today she denies having had any bothersome urinary issues or concerns since her last office visit here. However she does discuss her recent admission to the hospital followed by pulmonary rehab for in exacerbation of COPD as well as the influenza. Recent renal imaging results were reviewed with the patient today. 08/21 bilateral kidneys are normal in thickness and echotexture. Mild right- sided pelvicaliectasis similar to prior. No cortical mass lesion. There are 2 mm and 3 mm nonobstructing right renal calculi. Left kidney with 2 mm nonobstructing renal calculi no hydronephrosis. In office urinalysis results reviewed with the patient today. She denies urinary urgency, urinary frequency, incontinence, nocturia, hematuria, dysuria, foul smelling urine, changes to urinary stream, flank pain, fever, and or chills. She is happy with her current voiding parameters. Discussed at length importance of drinking adequate amount of fluid daily. She continues adding 1 oz of lemon juice to water daily. She reports compliance with vitamin B6 and allopurinol as prescribed. Of note, patient right-sided ESWL 06/20 with . Discussion Notes During the consultation, we reviewed the current status of the patient's nephrolithiasis, noting the presence of stones that are small in size and asymptomatic. An emphasis was placed on hydration, recommending adequate water intake and possible lemon juice addition for its known benefits in managing kidney stones. I explained the importance of recurring urinalysis for monitoring urinary pH and stone formation, highlighting water as a superior intervention compared to other medications. Past medical history includes a significant hospitalization period due to RSV, influenza, and COPD complications. Addressing her smoking habit was crucial, advising cessation for respiratory health improvements and discussing her intention to quit. We arranged a follow-up with an ultrasound in six months, unless earlier issues arise, and the patient consented to all discussed plans and interventions. Plan We emphasized hydration therapy to manage the patient's nephrolithiasis, advocating for water intake and lemon juice supplementation. Medication such as Vitamin B6 and Allopurinol may assist, but focus remains on hydration due to its superior efficacy. Smoking cessation is crucial, especially post- hospitalization, to support respiratory health, and steps to quit are discussed and encouraged. Follow-up ultrasound imaging is set for six months to reassess stone formation. The patient agreed to the comprehensive plan and expressed an understanding of the importance of these interventions. [facility] Medical History Influenza A Asthma-COPD overlap syndrome Allergies History of back pain History of neuropathy Smokes tobacco daily Opioid dependence Nephrolithiasis Hyperlipidemia HTN (hypertension) Cardiomyopathy Myocardial infarction CAD (coronary artery disease) Cough Hypothyroidism, postsurgical Tubular adenoma Diabetes MCKAY (obstructive sleep apnea) Irritable bowel syndrome Hyperthyroidism Polycythemia Smoker Hypoxia COPD exacerbation Lesion of bronchus Tracheal anomaly Multinodular goiter Vitamin D deficiency Atelectasis Subclinical hyperthyroidism Goiter Pneumonia Pulmonary nodules COPD (chronic obstructive pulmonary disease) Surgical History History of coronary artery stent placement Hx of thyroidectomy History of thyroid surgery History of esophagogastroduodenoscopy (EGD) Hx of colonoscopy History of back surgery History of ureterostomy S/P lumpectomy, right breast History of cholecystectomy History of tonsillectomy Family History Father No problems noted. Mother No problems noted. Paternal Aunt Diabetes Social History Household Members: Significant Other Housing: House Do you presently have visiting nurse or other home services: Yes (PT) Alcohol intake: never Comment: declines alarm, steadt to walk short distance to commode Patient Tobacco Use Status: Former Tobacco user Tobacco use type: Cigar Cigarette Packs Per Day: 0.5 Cigarettes Per Day: 10 e-Cigarette/Vaping Use: Never Used Second Hand Smoke Exposure: Yes Substance Use Type: Other Advance Directives Date on File: 01/24/21 service: No Current occupational status: disabled Review of Systems Const Reports as per HPI Eyes Reports no additional complaints ENT Reports no additional complaints Card Reports as per HPI Resp Reports as per HPI GI Reports as per HPI Reports as per HPI Musc Reports no additional complaints Neuro Reports no additional complaints Psych Reports no additional complaints Endo Reports as per HPI Physical Exam Const General: cooperative, comfortable, no acute distress, well developed, alert and awake Orientation/consciousness: patient oriented x3 Limitations: no limitations HEENT Head: Yes normal to inspection, Yes normocephalic and Yes atraumatic Ears: hearing grossly normal bilaterally Eyes General: appearance normal, both eyes and all related structures Neck Neck: Yes normal visual inspection and Yes trachea midline Chest Chest palpation & inspection: normal inspection of the chest Resp Effort & Inspection: normal respiratory effort and able to speak in complete sentences Cardio Rate: regular rate GI Inspection: Yes normal to inspection General: Yes no CVA tenderness Back/Spine/Pelvis Back: no CVA tenderness Neuro General: patient oriented x3 Extrem General: Yes normal to inspection Psych Appearance: grossly normal Mental Status: mental status grossly normal Speech and movement: Normal speech and movement present and Clear speech present Affect: normal affect Attitude: cooperative Thought process: Normal thought process present Thought content: Normal thought content present Insight: Fair insight present (Psych) Judgement: Fair judgement present (Psych) Results AMB Urinalysis, Automated UA Leukoctes 0 Augustus/uL Last Edit by Vidal Rosas on 08/11/24 09:55 UA Nitrite Last Edit by Vidal Rosas on 08/11/24 09:55 UA Urobilinogen 0.2 mg/dL Last Edit by Vidal Rosas on 08/11/24 09:55 UA Protein 0 mg/dL Last Edit by Vidal Rosas on 08/11/24 09:55 UA pH 6.0 Last Edit by Vidal Rosas on 08/11/24 09:55 UA Blood 0 Celso/uL Last Edit by Vidal Rosas on 08/11/24 09:55 UA Specific Glynn 1.015 Last Edit by Vidal Rosas on 08/11/24 09:55 UA Ketone Last Edit by Vidal Rosas on 08/11/24 09:55 UA Bilirubin 0 mg/dL Last Edit by Vidal Rosas on 08/11/24 09:55 UA Glucose 1000 mg/dL Last Edit by Vidal Rosas on 08/11/24 09:55 Results Reviewed Results Reviewed: Date of Service: 08/01/24 Procedure(s): US renal BI Findings: The right kidney measures 11.4 cm in length. Normal renal cortical thickness and echotexture. Mild pelvicaliectasis similar to prior. No cortical mass lesion. There are 2 mm and 3 mm calculi. The left kidney measures 11.8 cm in length. Normal renal cortical thickness and echotexture. No hydronephrosis or cortical mass lesion. There is a 2 mm calculus. IMPRESSION: 1. Mild right-sided pelvicaliectasis is similar to prior and may be chronic. No helen hydronephrosis. 2. No left hydronephrosis. 3. Nonobstructing bilateral nephrolithiasis. Assessment & Plan Assessment & Plan (1) Bilateral nephrolithiasis: Code(s): N20.0 - Calculus of kidney Category: Medical Plan In office urinalysis results reviewed with the patient today; as noted above. Recent renal imaging results reviewed with the patient today; as noted above. We discussed importance of adequate hydration relation to nephrolithiasis as well as overall health and well-being. Continue vitamin B6 and allopurinol as prescribed. Continue adding 1 oz of lemon juice to water daily. We discussed importance of limiting/quitting nicotine dependence for overall health and well-being. She currently denies any bothersome urinary issues. She reports be happy with current voiding parameters. Will obtain renal ultrasound in 6 months. Follow-up in 6 months with imaging to be completed prior; or sooner with any issues, concerns, and or questions. Orders: Orders US renal BI 6 Months N20.0 - Calculus of kidney AMB Urinalysis Automated Today Z13.9 - Encounter for screening, unspecified Patient Instructions: The patient had an opportunity to ask questions regarding the treatment plan. All questions were answered. Physical exam, labs, and imaging were discussed and reviewed in detail. As well as risks, benefits, and discussion of treatment choices. No major barriers to understanding were identified. The patient expressed understanding and agreement with the above treatment plan. The patient was made aware they should contact our office by phone for worsening of their current condition, the appearance of new symptoms, or with any questions or concerns. Compliance is encouraged with any medications and follow up testing that is ordered. It is a privilege to be allowed the opportunity to participate in? your urological care.? Again, if you have any questions or concerns If you have any questions or concerns please do not hesitate to contact me. The office is [phone]. This note is constructed using voice recognition software. While every effort has been made to ensure accuracy evs manager errors may have been included. Yours sincerely, ALEJANDRA Bal Coding Level of Care Code Est Pt Level 3 (03589) Complex EM visit Add On G2211 Diagnoses Bilateral nephrolithiasis N20.0
--- OUTSIDE RECORDS SUMMARY | 2024-08-11 09:58 | XMS_ITS | Encounter Summary ---
Author Organization [employer] Address [address] [place] [address] 7[address] [place] [address] Care Team Providers Care Care Transition Mgr Name Role Phone Name, Bobby GRADY Primary Care Provider [phone] Inga Magaña PharmD Unavailable [phone] Reason for Visit * Reason Comments Med Refill Encounter Details Date Type Department Care Team (Late Contact Info) Description 11/18/2022 Refill [facility] [address] [place], [place] [phone] Name, MD Bobby [address] [place] [address] Type 2 diabetes mellitus without complications (CMS/[facility]) Social History Tobacco Use Types Packs/Day [...] Upcoming Encounters Date Type Department Care Team ([facility] Contact Info) Description 09/01/2024 11:30 AM EDT Telemedicine [facility] [address] [place] [phone] Name, MD [facility] [place] [address] 09/02/2024 1:00 PM EDT Telemedicine [address] [address] Skye Melton, RN 11/02/2024 9:30 AM EDT Office Visit [address] [address] Name, MD Bobby [address] [place] [address] documented as of this encounter Visit Diagnoses Diagnosis Type 2 diabetes mellitus without complications (CMS/HCC) documented in this encounter Additional Health Concerns Assessment Noted Time PHQ-9 Depression Total Score: 0 03/11/20 11:47 AM EST documented as of this encounter Care Teams Care Transition Mgr Relationship Specialty Start Date End Date Name, MD Bobby [address] [place] [address] PCP - General Family Medicine 06/01/15 Inga Magaña PharmD [address] [place] [address] Pharmacist Internal Medicine 01/07/23 09/29/23 Eloina 05/13/24 documented as of this encounter
--- OUTSIDE RECORDS SUMMARY | 2024-08-11 09:58 | XMS_ITS | Encounter Summary ---
Author Organization [employer] Address [address] [place] [address] [address] [place] [address] Care Team Providers Care Lead Customer Service Representative Name Role Phone Name, Bobby GRADY Primary Care Provider [phone] Inga Magaña PharmD Unavailable [phone] Reason for Referral * Imaging (Routine) - Closed Specialty Diagnoses / Procedures Referred By Contac t Referred To Contact Diagnoses Other ovarian cyst, right side Procedures US Pelvis Transvaginal Monisha Linton CNM [address] [place] [address] Phone: tel: fax: [facility] Scan [address] [place] [address] Phone: tel: fax: Referral ID Status Reason Start Date Expiration Date Visits Re quested Visits Authorized [id number] Closed 04/01/2022 09/28/2022 1 1 Encounter Details Date Type Department Care Team ([facility] st Contact Info) Description 04/01/2022 Orders Only [facility] [address] [place], [place] [phone] Monisha Linton CNM [address] [place], [place] [phone] Other ovarian cyst, right side (Primary Dx) [...] Care Team (Late st Contact Info) Description 09/01/2024 11:30 AM EDT Telemedicine [address] [address] NameBobby MD [address] [place] [address] 09/02/2024 1:00 PM EDT Telemedicine [address] [address] Skye Melton RN 11/02/2024 9:30 AM EDT Office Visit [address] [address] Bobby David MD [address] [place] [phone] Scheduled Orders Name Type Priority Associated Diagnoses [...] as of this encounter Care Teams Lead Customer Service Representative Relationship Specialty Start Date End Date Bobby David MD [address] [place] [address] PCP - General Family Medicine 3/4/16 Inga Magaña, PharmD [address] [place] [address] Pharmacist Internal Medicine 01/07/23 09/29/23 Eloina 05/13/24 documented as of this encounter
--- OUTSIDE RECORDS SUMMARY | 2024-08-11 09:58 | XMS_ITS | Encounter Summary ---
Author Organization [employer] Address [address] [place] [address] Care Team Providers Care Prosthodontist/Owner Name Role Phone Name, Bobby GRADY Primary Care Provider [phone] Encounter Details Date Type Department Care Team (Late st Contact Info) Description 05/08/2024 Lab Requisition [facility] - Main Lab [address] [place] [address] Yared Weaver MD [address] [place] [address], [phone] Hypothyroidism, unspecified Social History Tobacco Use [...] LAB CHEMISTRY METHOD 05/09/2024 1:03 PM EST [facility] Blood Venous blood specimen / Unknown Venipuncture / Unknown 05/09/2024 5:33 AM EST 05/09/2024 11:27 AM EST us Yared Weaver MD LAB BLOOD ORDERABLES Final Resul t [facility] [address] [place] [address], documented in this encounter Visit Diagnoses Diagnosis Hypothyroidism, unspecified documented in this encounter Care Teams Prosthodontist/Owner Relationship Specialty Start Date End Date Name, MD Bobby [address] [place], [place] PCP - General Internal Medicine 04/01/18 documented as of this encounter
--- OUTSIDE RECORDS SUMMARY | 2024-08-11 09:58 | XMS_ITS | Encounter Summary ---
Author Organization [employer] Address [address] [facility] 7t [place] [address] Care Team Providers Care Works Manager Name Role Phone Name, Bobby GRADY Primary Care Provider [phone] Reason for Visit * Reason Comments Med Refill Encounter Details Date Type Department Care Team ([facility] Contact Info) Description 07/20/2024 Refill [facility] MED[facility]INE [address] [place] [address] Sherly Pichardo FNP [address] [place] [address] Social History Tobacco Use Types Packs/Day Years [...] Info) Description 09/01/2024 11:30 AM EDT Telemedicine [address] [address] NameBobby MD [address] [place] [address] 09/02/2024 1:00 PM EDT Telemedicine [address] [address] Skye Melton RN 11/02/2024 9:30 AM EDT Office Visit [address] [address] Bobby David MD [address] [place] [address] documented as of this encounter Goals Goal Patient Goal Type Associated Problems Recent Progress Patient-Stated? Author Smoking cessation General No Inga Magaña, PharmD documented as of this encounter Visit Diagnoses Not on filedocumented in this encounter Additional Health Concerns Assessment Noted Time PHQ-9 Depression Total Score: 0 06/19/19 24 10:09 AM EDT documented as of this encounter Care Teams Works Manager Relationship Specialty Start Date End Date Bobby David MD [address] [place] [address] PCP - General Family Medicine 06/01/15 Eloina 05/13/24 documented as of this encounter
--- OUTSIDE RECORDS SUMMARY | 2024-08-11 09:58 | XMS_ITS | Clinical Summary ---
Author Organization [address] Address [address] [place] [address] Phone Care Team Providers Care Departmental Shipping Clerk Name Role Phone Name, Bobby GRADY Primary Care Provider [phone] Surgical History Surgery Date Site/Laterality Comments CHOLECYSTECTOMY PROCEDURE: IA CHOLECYSTECTOMY OTHER SURGICAL HISTORY PROCEDURE: HISTORY OTHER; COMMENT: Cardiac stent KIDNEY STONE SURGERY PROCEDURE: IA NEPHROLITHOTOMY REMOVAL CALCULUS BREAST LUMPECTOMY Right PROCEDURE: HISTORICAL BREAST LUMPECTOMY; COMMENT: benign Medical History Medical History Date Comments Coronary atherosclerosis of unspecified type of vessel, [place] or graft 07/07/2011 DX:Coronary atherosclerosis of unspecified type of vessel, [place] or graft Hypertension 07/07/2011 DX:Hypertension Historical Medical DX 07/07/2011 DX:Hyperli pidemia LDL goal < 70 DM2 (diabetes mellitus, type 2) ([facility] V24, [facility] V28) 07/07/2011 DX:DM2 (diabetes mellitus, type 2) ([facility]) Tobacco abuse 07/07/2011 DX:Tobacco abuse Allergy-induced asthma 07/07/2011 DX:Allerg y-induced asthma Family History Medical History Relation Name Comments Breast cancer Aunt 1 maternal aunt, at 60 Breast cancer Aunt 2 paternal aunt, at 60 Other: nurse gynecology ca Aunt 2 Colon cancer Brother at [...] 8:21 AM EST Atherosclerotic heart disease of [place] coronary artery without angina pectoris from Last 3 Months or Most Recently Relevant to Health Maintenance Results * (ABNORMAL) Basic metabolic panel (05/12/2024 8:21 AM EST) Sodium 143 133 - 145 mmol/L LAB CHEMISTRY METHOD 05/12/2024 11:22 AM EST [facility] Potassium 3.6 3.5 - 5.5 mmol/L LAB CHEMISTRY METHOD 05/12/2024 11:22 AM EST [facility] Chloride 109 96 - 110 mmol/L LAB CHEMISTRY METHOD 05/12/2024 11:22 AM EST [facility] CO2 31 21 - 32 mmol/L LAB CHEMISTRY METHOD 05/12/2024 11:22 AM EST [facility] Anion Gap 3 3 - 11 LAB CHEMISTRY METHOD 05/12/2024 11:22 AM EST [facility] Glucose 95 70 - 100 mg/dL LAB CHEMISTRY METHOD 05/12/2024 11:22 AM EST [facility] BUN 21 5 - 25 mg/dL LAB CHEMISTRY METHOD 05/12/2024 11:22 AM [facility] Creatinine 0.80 0.50 - 1.10 mg/dL LAB CHEMISTRY METHOD 05/12/2024 11:22 AM EST [facility] eGFR 82 >=60 mL/min/1. 73m2 LAB CHEMISTRY METHOD 05/12/2024 11:22 AM EST [facility] Comment:Calculation based on the??Chronic Kidney Disease Epidemiology Collaboration (CKD-EPI) equation refit??without adjustment for race. BUN/Creatinine Ratio 26.3 LAB CHEMISTRY METHOD 05/12/2024 11:22 AM [facility] Calcium 8.0(L) 8.5 - 10.5 mg/dL LAB CHEMISTRY METHOD 05/12/2024 11:22 AM EST [facility] Blood Venous blood specimen / Unknown Venipuncture / Unknown 05/12/2024 8:21 AM EST 05/12/2024 10:56 AM EST us Yared Weaver MD LAB BLOOD ORDERABLES Final Resul t [facility] [address] [place] [address], from Last 3 Months or Most Recently Relevant to Health Maintenance Insurance [facility] Member Subscriber Plan / Payer (Ef fective 2022-Present) Name:Marita Lawrence Relation to Subscriber:Self Name:Marita Lawrence Payer ID:[id number] Group ID:[id number] Type:Not on file Address: [address] [place] [address] Care Teams Departmental Shipping Clerk Relationship Specialty Start Date End Date Name, MD Bobby [address] [place], [place] PCP - General Internal Medicine 04/01/18
--- OUTSIDE RECORDS SUMMARY | 2024-08-11 09:58 | XMS_ITS | Encounter Summary ---
Author Organization [employer] Address 75 [facility] 7t [place] [address] Care Team Providers Care Forest Nursery Supervisor Name Role Phone Name, Bobby GRADY Primary Care Provider [phone] Reason for Visit * Reason Onset Date Comments Med Refill 08/08/2024 Encounter Details Date Type Department Care Team ([facility] st Contact Info) Description 08/08/2024 Refill [facility] [address] [place] [address] Name, MD Bobby [address] [place] [address] Lumbar radiculopathy Social History Tobacco Use Types [...] the past 12 months, has t he [employer], oil or water [employer] threatened to shut off services in your [...] encounter Miscellaneous Notes * Telephone Encounter - Shahnaz Dickerson LPN - 08/08/2024 1:28 PM EDT Last seen 4.9.25 documented in this encounter Plan of Treatment Upcoming Encounters Date Type Department Care Team (Late st Contact Info) Description 09/01/2024 11:30 AM EDT Telemedicine [facility] [address] [place] [address] Name, MD Bobby [address] [place] [address] 09/02/2024 1:00 PM EDT Telemedicine [facility] [address] [place] [address] [phone] Skye Melton RN 11/02/2024 9:30 AM EDT Office Visit [facility] [address] [place] [address] Name, MD Bobby [address] [place] [address] documented as of this encounter Goals Goal [...] documented as of this encounter Care Teams Forest Nursery Supervisor Relationship Specialty Start Date End Date Name, MD Bobby [address] [place] [address] PCP - General Family Medicine 06/01/15 [place] 05/13/24 documented as of this encounter
--- OUTSIDE RECORDS SUMMARY | 2024-08-11 09:58 | XMS_ITS | Encounter Summary ---
Author Organization [employer] Address [address] [place] [address] Care Team Providers Care Suction Plate Roller Hand Name Role Phone Name, Bobby GRADY Primary Care Provider [phone] Encounter Details Date Type Department Care Team (Latest Contact Info) Description 05/04/2024 Lab Requisition [facility] Main Lab [address] [place] [address] Yared Weaver MD [address] [place] [address], [phone] Atherosclerotic heart disease of [place] coronary artery without angina pectoris Social History [...] 5:05 AM EST Atherosclerotic heart disease of [place] coronary artery without angina pectoris BASIC METABOLIC PANEL Routine 05/05/2024 5:05 AM EST Atherosclerotic heart disease of [place] coronary artery without angina pectoris documented in this encounter Results * (ABNORMAL) Basic metabolic panel (05/05/2024 5:05 AM EST) Sodium 144 133 - 145 mmol/L LAB CHEMISTRY METHOD 05/05/2024 11:28 AM EST [facility] Potassium 3.9 3.5 - 5.5 mmol/L LAB CHEMISTRY METHOD 05/05/2024 11:28 AM [facility] Chloride 103 96 - 110 mmol/L LAB CHEMISTRY METHOD 05/05/2024 11:28 AM [facility] CO2 34(H) 21 - 32 mmol/L LAB CHEMISTRY METHOD 05/05/2024 11:28 AM [facility] Anion Gap 7 3 - 11 LAB CHEMISTRY METHOD 05/05/2024 11:28 AM [facility] Glucose 101(H) 70 - 100 mg/dL LAB CHEMISTRY METHOD 05/05/2024 11:28 AM [facility] BUN 19 5 - 25 mg/dL LAB CHEMISTRY METHOD 05/05/2024 11:28 AM [facility] Creatinine 0.71 0.50 - 1.10 mg/dL LAB CHEMISTRY METHOD 05/05/2024 11:28 AM [facility] eGFR 95 >=60 mL/min/1. 73m2 LAB CHEMISTRY METHOD 05/05/2024 11:28 AM [facility] Comment:Calculation based on the??Chronic Kidney Disease Epidemiology Collaboration (CKD-EPI) equation refit??without adjustment for race. BUN/Creatinine Ratio 26.8 LAB CHEMISTRY METHOD 05/05/2024 11:28 AM [facility] Calcium 8.0(L) 8.5 - 10.5 mg/dL LAB CHEMISTRY METHOD 05/05/2024 11:28 AM [facility] Blood Venous blood specimen / Unknown Venipuncture / Unknown 05/05/2024 5:05 AM EST 05/05/2024 9:37 AM EST us Yared Weaver MD LAB BLOOD ORDERABLES Final Resul t [facility] [address] [place] [address], * (ABNORMAL) Complete blood count (05/05/2024 5:05 AM EST) [facility] WBC 13.8(H) 4.8 - 10.8 K/mcL LAB HEMETOLOGY METHOD 05/05/2024 11:24 AM [facility] RBC 5.30(H) 3.80 - 4.80 M/mcL LAB HEMETOLOGY METHOD 05/05/2024 11:24 AM [facility] Hemoglobin 15.0 11.5 - 16.0 g/dL LAB HEMETOLOGY METHOD 05/05/2024 11:24 AM [facility] Hematocrit 47.2(H) 35.0 - 47.0 % LAB HEMETOLOGY METHOD 05/05/2024 11:24 AM [facility] MCV 89.6 79.0 - 98.0 FL LAB HEMETOLOGY METHOD 05/05/2024 11:24 AM [facility] MCH 28.5 27.0 - 32.0 pcg LAB HEMETOLOGY METHOD 05/05/2024 11:24 AM [facility] MCHC 31.8(L) 32.0 - 37.0 g/dL LAB HEMETOLOGY METHOD 05/05/2024 11:24 AM [facility] RDW 15.9(H) 11.0 - 15.0 % LAB HEMETOLOGY METHOD 05/05/2024 11:24 AM [facility] Platelets 184 130 - 400 K/mcL LAB HEMETOLOGY METHOD 05/05/2024 11:24 AM [facility] MPV 12.0(H) 7.0 - 11.0 FL LAB HEMETOLOGY METHOD 05/05/2024 11:24 AM [facility] NRBC 0.0 <1.0 % LAB HEMETOLOGY METHOD 05/05/2024 11:24 AM [facility] NRBC Absolute 0.00 <0.10 K/mcL LAB HEMETOLOGY METHOD 05/05/2024 11:24 AM EST [facility] Blood Venous blood specimen / Unknown Venipuncture / Unknown 05/05/2024 5:05 AM EST 05/05/2024 9:37 AM EST us Yared Weaver MD LAB BLOOD ORDERABLES Final Resul t [facility] [address] [place] [address], documented in this encounter Visit Diagnoses Diagnosis Atherosclerotic heart disease of [place] coronary artery without angina pectoris documented in this encounter Care Teams Suction Plate Roller Hand Relationship Specialty Start Date End Date Name, MD Bobby [address] [place], [place] PCP - General Internal Medicine 04/01/18 documented as of this encounter
--- OUTSIDE RECORDS SUMMARY | 2024-08-11 09:58 | XMS_ITS | Encounter Summary ---
Author Organization [employer] Address [address] [facility] 7t [place] [address] Care Team Providers Care Handbag Parts Cutter Name Role Phone Name, Bobby GRADY Primary Care Provider [phone] Inga Magaña PharmD Unavailable [phone] Reason for Visit * Reason Comments Med Refill Encounter Details Date Type Department Care Team (Late st Contact Info) Description 04/07/2022 Refill [facility] MEDICINE [address] [place] [address] Sherly Pichardo, DRIVERS LICENSE EXAMINER [address] [place] [address] Chronic low back pain with sciatica, sciatica [...] Info) Description 09/01/2024 11:30 AM EDT Telemedicine [address] [place] [address] Name, [place] [address] 09/02/2024 1:00 PM EDT Telemedicine [address] [address] Skye Melton RN 11/02/2024 9:30 AM EDT Office Visit [address] [place] [address] Name, [place] [address] documented as of this encounter Visit Diagnoses Diagnosis Chronic low back pain with sciatica, sciatica laterality unspecified, unspecified back pain laterality documented in this encounter Additional Health Concerns Assessment Noted Time PHQ-9 Depression Total Score: 0 03/11/20 11:47 AM EST documented as of this encounter Care Teams Handbag Parts Cutter Relationship Specialty Start Date End Date Name, [place] [address] PCP - General Family Medicine 06/01/15 Inga Magaña PharmD [address] [place] [address] Pharmacist Internal Medicine 01/07/23 09/29/23 [place] 05/13/24 documented as of this encounter
--- OUTSIDE RECORDS SUMMARY | 2024-08-11 09:58 | XMS_ITS | Encounter Summary ---
Author Organization [employer] Address [address] [facility] 7t [place] [address] Care Team Providers Care Band Splicer Name Role Phone Name, Bobby GRADY Primary Care Provider [phone] Inga Magaña PharmD Unavailable [phone] Reason for Visit * Reason Onset Date Comments Med Refill 05/26/2023 Encounter Details Date Type Department Care Team ([facility] st Contact Info) Description 05/26/2023 Telephone [facility] MEDICINE [address] [place] [address] Name, MD Bobby [address] [place] [address] Med Refill Social History Tobacco Use Types [...] 7.5-325 MG tablet To be sent to: [facility] [place], [place] - [address] [place] [address] documented in this encounter Plan of Treatment Upcoming Encounters Date Type Department Care Team (Late st Contact Info) Description 09/01/2024 11:30 AM EDT Telemedicine [facility] MEDICINE [address] [place] [address] Name, MD Bobby [address] [place] [address] 09/02/2024 1:00 PM EDT Telemedicine [facility] [address] [place] [address] Skye Melton RN 11/02/2024 9:30 AM EDT Office Visit [facility] [address] [place] [address] Name, MD Bobby [address] [place] [address] documented as of this encounter Goals Goal Patient Goal Type Associated Problems Recent Progress Patient-Stated? Author Smoking cessation General No Puia, Inga, PharmD documented as of this encounter Visit Diagnoses Not on filedocumented in this encounter Additional Health Concerns Assessment Noted Time PHQ-9 Depression Total Score: 0 03/11/20 22 11:47 AM EST documented as of this encounter Care Teams Band Splicer Relationship Specialty Start Date End Date Name, MD Bobby [address] [place] [address] PCP - General Family Medicine 06/01/15 Inga Magaña, MiltonD [address] [place] [address] Pharmacist Internal Medicine 01/07/23 09/29/23 Eloina 05/13/24 documented as of this encounter
--- OUTSIDE RECORDS SUMMARY | 2024-08-11 09:58 | XMS_ITS | Encounter Summary ---
Author Organization [employer] Address [address] [place] [address] 7t [place] [address] Care Team Providers Care Molder Trimmer Name Role Phone Name, Bobby GRADY Primary Care Provider [phone] Inga Magaña PharmD Unavailable [phone] Reason for Visit * Reason Comments Med Refill Encounter Details Date Type Department Care Team ([facility] Contact Info) Description 11/18/2022 Refill [facility] MEDICINE [address] [place] [address] [phone] Sherly Pichardo, GEETA [address] [place], [place] [phone] Type 2 diabetes mellitus without complications (CMS/[facility]) Social History Tobacco Use Types Packs/Day [...] Encounters Date Type Department Care Team ([facility] Contact Info) Description 09/01/2024 11:30 AM EDT Telemedicine [facility] MEDICINE [address] [place] [address] Name, MD Bobby [facility]ont [facility] [place] [address] 09/02/2024 1:00 PM EDT Telemedicine [address] [place] [address] Skye Melton, RN 11/02/2024 9:30 AM EDT Office Visit [address] [address] Name, [place] [address] documented as of this encounter Visit Diagnoses Diagnosis Type 2 diabetes mellitus without complications (CMS/HCC) documented in this encounter Additional Health Concerns Assessment Noted Time PHQ-9 Depression Total Score: 0 03/11/20 22 11:47 AM EST documented as of this encounter Care Teams Molder Trimmer Relationship Specialty Start Date End Date Name, MD Bobby [address] [place] [address] PCP - General Family Medicine 06/01/15 Inga Magaña PharmD [address] [place] [address] Pharmacist Internal Medicine 01/07/23 09/29/23 Elo[place] 05/13/24 documented as of this encounter
--- OUTSIDE RECORDS SUMMARY | 2024-08-11 09:58 | XMS_ITS | Encounter Summary ---
Author Organization [employer] Address 75 [facility] 7t [place] [address] Care Team Providers Care Superintendent Production Name Role Phone Name, Bobby GRADY Primary Care Provider [phone] Inga Magaña PharmD Unavailable [phone] Reason for Visit * Reason Comments Med Change Request Encounter Details Date Type Department Care Team ([facility] st Contact Info) Description 06/09/[address] [facility] MEDICINE [address] [place] [address] Name, MD Bobby [address] [place] [address] Social History Tobacco Use Types Packs/Day Years [...] Info) Description 09/01/2024 11:30 AM EDT Telemedicine [address] [address] NameBobby MD [address] [place] [address] 09/02/2024 1:00 PM EDT Telemedicine [address] [address] Skye Melton RN 11/02/2024 9:30 AM EDT Office Visit [address] [address] NameBobby MD [address] [place] [address] documented as of this encounter Goals Goal Patient Goal Type Associated Problems Recent Progress Patient-Stated? Author Smoking cessation General No Inga Magaña, PharmD documented as of this encounter Visit Diagnoses Not on filedocumented in this encounter Additional Health Concerns Assessment Noted Time PHQ-9 Depression Total Score: 0 03/11/20 22 11:47 AM EST documented as of this encounter Care Teams Superintendent Production Relationship Specialty Start Date End Date NameBobby MD [address] [place] [address] PCP - General Family Medicine 06/01/15 Inga Magaña, PharmD [address] [place] [address] Pharmacist Internal Medicine 01/07/23 09/29/23 Elo[place] 05/13/24 documented as of this encounter
--- OUTSIDE RECORDS SUMMARY | 2024-08-11 09:58 | XMS_ITS | Encounter Summary ---
Author Organization [employer] Address 75 [facility] 7t [place] [address] Care Team Providers Care General Farm Manager Name Role Phone Name, Bobby GRADY Primary Care Provider [phone] Inga Magaña PharmD Unavailable [phone] Reason for Visit * Reason Onset Date Comments Med Refill 01/20/2023 Encounter Details Date Type Department Care Team ([facility] st Contact Info) Description 01/20/2023 Telephone [facility] [address] [place] [address] Name, MD Bobby [address] [place] [address] Med Refill Social History Tobacco Use Types [...] 09/01/2024 11:30 AM EDT Telemedicine [facility] [address] [place] [address] Bobby David MD [address] [place] [address] 09/02/2024 1:00 PM EDT Telemedicine [facility] [address] [place] [address] [phone] Skye Melton RN 11/02/2024 9:30 AM EDT Office Visit [facility] [address] [place] [address] NameBobby MD [address] [place] [address] documented as of this encounter Goals Goal Patient Goal Type Associated Problems Recent Progress Patient-Stated? Author Smoking cessation General No Inga Magaña, MiltonD documented as of this encounter Visit Diagnoses Not on filedocumented in this encounter Additional Health Concerns Assessment Noted Time PHQ-9 Depression Total Score: 0 03/11/20 22 11:47 AM EST documented as of this encounter Care Teams General Farm Manager Relationship Specialty Start Date End Date Name, MD Bobby [address] [place] [address] PCP - General Family Medicine 06/01/15 Inga Magaña, MiltnoD [address] [place] [address] Pharmacist Internal Medicine 01/07/23 09/29/23 [place] 05/13/24 documented as of this encounter
--- OUTSIDE RECORDS SUMMARY | 2024-08-11 09:58 | XMS_ITS | Encounter Summary ---
Author Organization [employer] Address [address] [place] [address] Care Team Providers Care Precision Lathe Operator Name Role Phone Name, Bobby GRADY Primary Care Provider [phone] Encounter Details Date Type Department Care Team (Latest Contact Info) Description 05/11/2024 Lab Requisition [facility] Lab [address] [place] [address] Yared Weaver MD [address] [place] [address], [phone] Atherosclerotic heart disease of [place] coronary artery without angina pectoris Social History [...] 8:21 AM EST Atherosclerotic heart disease of [place] coronary artery without angina pectoris BASIC METABOLIC PANEL Routine 05/12/2024 8:21 AM EST Atherosclerotic heart disease of [place] coronary artery without angina pectoris documented in this encounter Results * (ABNORMAL) Basic metabolic panel (05/12/2024 8:21 AM EST) Sodium 143 133 - 145 mmol/L LAB CHEMISTRY METHOD 05/12/2024 11:[address] [facility] Potassium 3.6 3.5 - 5.5 mmol/L LAB CHEMISTRY METHOD 05/12/2024 11:22 AM [facility] Chloride 109 96 - 110 mmol/L LAB CHEMISTRY METHOD 05/12/2024 11:22 AM [facility] CO2 31 21 - 32 mmol/L LAB CHEMISTRY METHOD 05/12/2024 11:22 AM [facility] Anion Gap 3 3 - 11 LAB CHEMISTRY METHOD 05/12/2024 11:22 AM [facility] Glucose 95 70 - 100 mg/dL LAB CHEMISTRY METHOD 05/12/2024 11:22 AM [facility] BUN 21 5 - 25 mg/dL LAB CHEMISTRY METHOD 05/12/2024 11:22 AM [facility] Creatinine 0.80 0.50 - 1.10 mg/dL LAB CHEMISTRY METHOD 05/12/2024 11:22 AM [facility] eGFR 82 >=60 mL/min/1. 73m2 LAB CHEMISTRY METHOD 05/12/2024 11:22 AM [facility] Comment:Calculation based on the??Chronic Kidney Disease Epidemiology Collaboration (CKD-EPI) equation refit??without adjustment for race. BUN/Creatinine Ratio 26.3 LAB CHEMISTRY METHOD 05/12/2024 11:22 AM [facility] Calcium 8.0(L) 8.5 - 10.5 mg/dL LAB CHEMISTRY METHOD 05/12/2024 11:22 AM [facility] Blood Venous blood specimen / Unknown Venipuncture / Unknown 05/12/2024 8:21 AM EST 05/12/2024 10:56 AM EST us Yared Weaver MD LAB BLOOD ORDERABLES Final Resul t [facility] [address] [place] [address], * (ABNORMAL) Complete blood count (05/12/2024 8:21 AM EST) [facility] WBC 12.5(H) 4.8 - 10.8 K/mcL LAB HEMETOLOGY METHOD 05/12/2024 11:10 AM [facility] RBC 5.10(H) 3.80 - 4.80 M/mcL LAB HEMETOLOGY METHOD 05/12/2024 11:10 AM [facility] Hemoglobin 14.6 11.5 - 16.0 g/dL LAB HEMETOLOGY METHOD 05/12/2024 11:10 AM [facility] Hematocrit 46.7 35.0 - 47.0 % LAB HEMETOLOGY METHOD 05/12/2024 11:10 AM [facility] MCV 91.4 79.0 - 98.0 FL LAB HEMETOLOGY METHOD 05/12/2024 11:10 AM [facility] MCH 28.6 27.0 - 32.0 pcg LAB HEMETOLOGY METHOD 05/12/2024 11:10 AM [facility] MCHC 31.3(L) 32.0 - 37.0 g/dL LAB HEMETOLOGY METHOD 05/12/2024 11:10 AM [facility] RDW 16.3(H) 11.0 - 15.0 % LAB HEMETOLOGY METHOD 05/12/2024 11:10 AM [facility] Platelets 209 130 - 400 K/mcL LAB HEMETOLOGY METHOD 05/12/2024 11:10 AM [facility] MPV 10.7 7.0 - 11.0 FL LAB HEMETOLOGY METHOD 05/12/2024 11:10 AM [facility] NRBC 0.0 <1.0 % LAB HEMETOLOGY METHOD 05/12/2024 11:10 AM [facility] NRBC Absolute 0.00 <0.10 K/mcL LAB HEMETOLOGY METHOD 05/12/2024 11:10 AM EST [facility] Blood Venous blood specimen / Unknown Venipuncture / Unknown 05/12/2024 8:21 AM EST 05/12/2024 10:56 AM EST us Yared Weaver MD LAB BLOOD ORDERABLES Final Resul t [facility] [address] [place] [address], documented in this encounter Visit Diagnoses Diagnosis Atherosclerotic heart disease of [place] coronary artery without angina pectoris documented in this encounter Care Teams Precision Lathe Operator Relationship Specialty Start Date End Date Name, MD Bobby [address] [place], [place] PCP - General Internal Medicine 04/01/18 documented as of this encounter
--- OUTSIDE RECORDS SUMMARY | 2024-08-11 09:58 | XMS_ITS | Encounter Summary ---
Author Organization [employer] Address [address] [place] [address] 7[address] [place] [address] Care Team Providers Care Filament Maker Name Role Phone Name, Bobby GRADY Primary Care Provider Reason for Visit * Reason Onset Date Comments Hospital Follow-up 05/17/2024 Encounter Details Date Type Department Care Team ([facility] st Contact Info) Description 05/17/2024 Telephone [facility]INE [address] [place] [address] Name, MD Bobby [address] [place] [address] Hospital Follow-up Social History Tobacco Use Types [...] from pt requesting a HDF appt. Hospital: [facility] [place] transported Date of admission: 04/06/2024 Discharge date: 05/12/2024 Diagnosed: RSV , Influenza A+B , COPD *Send message to [place] Clinical Care Coordinators documented in this encounter Plan of Treatment Upcoming Encounters Date Type Department Care Team (Late st Contact Info) Description 09/01/2024 11:30 AM EDT Telemedicine [facility] MED[facility]INE [address] [place] [address] Name, MD Bobby [address] [place] [address] 09/02/2024 1:00 PM EDT Telemedicine [facility] MEDICINE [address] [place] [address] Skye Melton RN 11/02/2024 9:30 AM EDT Office Visit [facility] [address] [place] [address] Name, MD Bobby [address] [place] [address] documented as of this encounter Goals Goal Patient Goal Type Associated Problems Recent Progress Patient-Stated? Author Smoking cessation General Inga Radford, PharmD documented as of this encounter Visit Diagnoses Not on filedocumented in this encounter Additional Health Concerns Assessment Noted Time PHQ-9 Depression Total Score: 0 06/19/19 24 10:09 AM EDT documented as of this encounter Care Teams Filament Maker Relationship Specialty Start Date End Date Name, MD Bobby [address] [place] [address] PCP - General Family Medicine 06/01/15 [place] 05/13/24 documented as of this encounter
--- OUTSIDE RECORDS SUMMARY | 2024-08-11 09:58 | XMS_ITS | Encounter Summary ---
Author Organization [employer] Address [address] [place] [address] 7t [place] [address] Care Team Providers Care Funeral Pre Arrangement Counselor Name Role Phone NameBobby MD Primary Care Provider [phone] Inga Magaña PharmD Unavailable [phone] Reason for Visit * Reason Onset Date Comments Referral 04/23/2022 Encounter Details Date Type Department Care Team ([facility] st Contact Info) Description 04/23/2022 Telephone [facility] [address] [place] [address] NameBobby MD [address] [place] [address] Referral Social History Tobacco Use Types Packs/Day [...] Pt wants referral to see Gastroenterology in [facility], as pt has hx of colon cancer and has been waiting 10 years for colonoscopy. Pt stated June at [facility] has an apptset up for pt on May 13 and needs referral placed before then. Pt verbalized understanding and denied having any further questions or concerns at this time. * Telephone Encounter - Octavio Holliday - 04/23/2022 11:46 AM EST Tc from pt requesting an referral to see an gastroenterology at [facility] Please contact pt at [phone] documented in this encounter Plan of Treatment Upcoming Encounters Date Type Department Care Team (Late st Contact Info) Description 09/01/2024 11:30 AM EDT Telemedicine [facility] MEDICINE [address] [place] [phone] Bobby David MD [address] [place] [address] 09/02/2024 1:00 PM EDT Telemedicine [address] [address] Skye Melton RN 11/02/2024 9:30 AM EDT Office Visit [facility] [address] [place] [address] Bobby David MD [address] [place] [address] documented as of this encounter Visit Diagnoses Diagnosis History of colon polyps- Primary Family history of colon cancer Family history of malignant neoplasm of gastrointestinal tract documented in this encounter Additional Health Concerns Assessment Noted Time PHQ-9 Depression Total Score: 0 03/11/20 11:47 AM EST documented as of this encounter Care Teams Funeral Pre Arrangement Counselor Relationship Specialty Start Date End Date Bobby David MD [address] [place] [address] PCP - General Family Medicine 06/01/15 Inga Magaña, MiltonD [address] [place] [address] [place] [phone] Pharmacist Internal Medicine 01/07/23 09/29/23 [place] 05/13/24 documented as of this encounter
--- OUTSIDE RECORDS SUMMARY | 2024-08-11 09:58 | XMS_ITS | Encounter Summary ---
Author Organization [employer] Address [address] [facility] 7t [place] [address] Care Team Providers Care Head Doffer Name Role Phone Name, Bobby GRADY Primary Care Provider [phone] Inga Magaña PharmD Unavailable [phone] Reason for Visit * Reason Comments Med Refill Encounter Details Date Type Department Care Team ([facility] st Contact Info) Description 04/28/2023 Refill [facility]INE [address] [place] [address] Name, MD Bobby [address] [place] [address] Social History Tobacco Use Types Packs/Day Years [...] Info) Description 09/01/2024 11:30 AM EDT Telemedicine [address] [address] NameBobby MD [address] [place] [address] 09/02/2024 1:00 PM EDT Telemedicine [address] [address] Skye Melton RN 11/02/2024 9:30 AM EDT Office Visit [address] [address] NameBobby MD [address] [place] [address] documented as of this encounter Goals Goal Patient Goal Type Associated Problems Recent Progress Patient-Stated? Author Smoking cessation General No Inga Magaña, PharmD documented as of this encounter Visit Diagnoses Not on filedocumented in this encounter Additional Health Concerns Assessment Noted Time PHQ-9 Depression Total Score: 0 03/11/20 22 11:47 AM EST documented as of this encounter Care Teams Head Doffer Relationship Specialty Start Date End Date NameBobby MD [address] [place] [address] PCP - General Family Medicine 06/01/15 Inga Magaña, PharmD [address] [place] [address] Pharmacist Internal Medicine 01/07/23 09/29/23 [place] 05/13/24 documented as of this encounter
--- OUTSIDE RECORDS SUMMARY | 2024-08-11 09:58 | XMS_ITS | Encounter Summary ---
Author Organization [employer] Address [address] [place] [address] 7t [place] [address] Care Team Providers Care Flexible Machining System Machinist Name Role Phone Name, Bobby GRADY Primary Care Provider [phone] Inga Magaña PharmD Unavailable [phone] Reason for Visit * Reason Onset Date Comments Prior Authorization 01/21/2023 HumaLOG KWIK PEN 100 UNIT/ML injection Encounter Details Date Type Department Care Team ([facility] st Contact Info) Description 01/21/2023 Telephone [facility] MEDICINE [address] [place] [address] Name, MD Bobby [address] [place] [address] Prior Authorization (HumaLOG KWIKPEN 100 UNIT/ML injection) [...] EDT Telemedicine [facility] [address] [place] [address] Name, MD Bobby [address] [place] [address] 09/02/2024 1:00 PM EDT Telemedicine [facility] [address] [place] [address] Skye Melton RN 11/02/2024 9:30 AM EDT Office Visit [facility] [address] [place] [phone] NameBobby MD [address] [place] [address] documented as of this encounter Goals Goal Patient Goal Type Associated Problems Recent Progress Patient-Stated? Author Smoking cessation General No Inga Magaña, PharmD documented as of this encounter Visit Diagnoses Not on filedocumented in this encounter Additional Health Concerns Assessment Noted Time PHQ-9 Depression Total Score: 0 03/11/20 22 11:47 AM EST documented as of this encounter Care Teams Flexible Machining System Machinist Relationship Specialty Start Date End Date Name, MD Bobby [address] [place] [address] PCP - General Family Medicine 06/01/15 Inga Magaña, PharmD [address] [place] [address] Pharmacist Internal Medicine 01/07/23 09/29/23 [place] 05/13/24 documented as of this encounter
--- OUTSIDE RECORDS SUMMARY | 2024-08-11 09:59 | XMS_ITS | Encounter Summary ---
Author Organization [employer] Address [address] [place] [address] 7t [place] [address] Care Team Providers Care Longitudinal Float Operator Name Role Phone Name, Bobby GRADY Primary Care Provider [phone] Inga Magaña PharmD Unavailable [phone] Reason for Visit * Reason Comments Med Refill Encounter Details Date Type Department Care Team (Late st Contact Info) Description 10/03/2022 Refill [facility] MEDICINE [address] [place] [address] Name, MD Bobby [address] [place] [address] Lumbar radiculopathy Social History Tobacco Use Types [...] Info) Description 09/01/2024 11:30 AM EDT Telemedicine [address] [address] Name, MD Bobby [address] [place] [address] 09/02/2024 1:00 PM EDT Telemedicine [address] [address] Skye Melton, HODA 11/02/2024 9:30 AM EDT Office Visit [address] [address] Name, MD Bobby [address] [place] [address] documented as of this encounter Visit Diagnoses Diagnosis Lumbar radiculopathy Thoracic or lumbosacral neuritis or radiculitis, unspecified documented in this encounter Additional Health Concerns Assessment Noted Time PHQ-9 Depression Total Score: 0 03/11/20 22 11:47 AM EST documented as of this encounter Care Teams Longitudinal Float Operator Relationship Specialty Start Date End Date Name, MD Bobby [address] [place] [address] PCP - General Family Medicine 06/01/15 Inga Magaña PharmD [address] [place] [address] Pharmacist Internal Medicine 01/07/23 09/29/23 [place] 05/13/24 documented as of this encounter
--- OUTSIDE RECORDS SUMMARY | 2024-08-11 09:59 | XMS_ITS | Clinical Summary ---
Author Organization [employer] Address [address] [place] [address] 7 [place] [address] Care Team Providers Care Fire Captain Name Role Phone Name, Bobby GRADY Primary Care Provider [phone] Allergies Active Allergy Reactions Criticality Noted Date [...] mellitus without complications ([facility]) Check BG twice daily 100 [...] mellitus with other specified complication, unspecified whether terminal supervisor insulin use ([facility]) USE DIRECTED FIVE TIMES DAILY [...] diabetes with complication ([facility]),COPD exacerbation ([facility]) Inject 1.5 mg under the skin 1 (one) time per week. 2 mL Active empagliflozin (Jardiance) 10 MG Take 1 tablet (10 mg) by mouth Once per day. 30 tablet 2024 Active insulin glargine (Lantus SoloStar) 100 UNIT/ML penIndications:A therosclerosis of coronary artery of [place] heart, unspecified vessel or lesion type, unspecified whether angina present INJECT 35 UNITS SUBCUTANEOUSLY TWICE DAILY IN THE MORNING AND IN THE EVENING 15 mL Active OneTouch Ultra Test test stripIndications :Type 2 diabetes mellitus without complications ([facility]) USE DIRECTED TO TEST BLOOD SUGAR THREE TIMES DAILY 50 strip 5 Active SM Calcium Citrate+Vit D3 Max tablet TAKE 1 TABLET BY MOUTH 2 TIMES DAILY 60 tablet 3 Active ipratropium-albu terol (Duo-Neb) 0.5-2.5 mg/3 mL nebulizer solutionIndicati ons:Chronic obstructive pulmonary disease, unspecified ([facility]/H[facility]) INHALE 1 AMPULE USING A NEBULIZER FOUR [...] po daily for 5 days 10 tablet 025 Active baclofen (Lioresal) 10 MG tabletIndication s:Lumbar radiculopathy Take 1 tablet (10 mg) by mouth every 8 (eight) hours if needed for muscle spasms. 45 tablet 025 Active docusate sodium (Colace) 100 MG [...] 6 PUFFS PER DAY) 4 g 5 025 Active oxyCODONE-acetam inophen (Percocet) 7.5-325 MG [...] 29, 2024. 112 tablet 025 2024 Active omeprazole (PriLOSEC) [address] capsuleIndicatio ns:Lumbar radiculopathy Do not crush or chew.TAKE 1 CAPSULE BY MOUTH TWICE DAILY 30 MINUTES BEFORE MEALS 60 capsule Active omeprazole (PriLOSEC) [address] capsuleIndicatio ns:Lumbar radiculopathy TAKE 1 CAPSULE BY MOUTH TWICE DAILY 30 MINUTES BEFORE MEALS 60 capsule 025 2024 Discontinued(R eorder (will not trigger notification to Pharmacy)) oxyCODONE-acetam inophen (Percocet) 7.5-325 MG tabletIndication s:Chronic [...] neoplasm o f colon 09/30/2023 CAD in [place] artery 09/02/2023 Opioid dependence, daily use 07/27/2023 [...] Encounters Date Type Department Care Team Description 08/08/[address] [facility] [address] [place] [address] Name, MD Bobby Lumbar radiculopathy 08/01/2024 Orders Only [facility] External Provider, [facility] 07/27/2024 Refill [facility] [address] [place], [place] [phone] Name, MD Bobby Chronic low back pain with sciatica, sciatica laterality unspecified, unspecified back pain laterality 07/20/2024 Refill [facility] [address] [place], [place] [phone] Sherly Pichardo FNP 07/14/2024 Telephone [facility] [address] [place] [address] Cem Berrios [place] september recalls 07/06/2024 11:00 AM EDT Office Visit [address] [address] Bobby David MD Type 2 diabetes mellitus with other specified complication, unspecified whether alf insulin use ([facility]) (Primary Dx); Chronic obstructive pulmonary disease, unspecified COPD type ([facility]); Abnormal chest x-ray; History of pneumonia 07/06/2024 Travel 07/05/2024 Telephone [facility] [address] [place] [address] Sherly Pichardo FNP MRI LUMBAR 07/05/2024 Telephone [facility] [address] [place] [address] Sherly Pichardo FNP MRI LUMBAR 07/04/[address] [facility] [address] [place], [place] [phone] Bobby David MD Durable Medical Equipment 07/03/2024 Refill [facility] [address] [place] [phone] Bobby David MD Chronic obstructive pulmonary disease, unspecified COPD type ([facility]) 06/30/[address] [facility] [address] [place] [address] Bobby David MD Chronic low back pain with sciatica, sciatica laterality unspecified, unspecified back pain laterality 06/29/2024 Telephone [facility] [address] [place] [phone] Sherly Pichardo FNP MRI LUMBAR SPINE ORDER 06/24/[address] [address] Mildred Eason LPN Prior Authorization 06/23/2024 Telephone [facility] [address] [place] [phone] Sherly Pichardo FNP MRI LUMBAR SPINE ORDER 06/22/2024 3:30 PM EDT Office Visit [address] [address] Basia Herndon MD Pneumonia of right middle lobe due to infectious organism (Primary Dx); Type 2 diabetes mellitus with other specified complication, unspecified whether terminal supervisor insulin use ([facility]); Cough, unspecified type; Drug-induced constipation; Dietary counseling; Exercise counseling; Overweight 06/22/2024 Travel 06/22/[address] [address] Bobby David MD Lumbar radiculopathy 06/20/[address] [facility] [address] [place] [address] Sherly Pichardo APPLICATION TRAINER 06/20/[address] [facility] [address] [place] [address] Sherly Pichardo APPLICATION TRAINER Results (Lumbar x-ray) 06/17/[address] [facility] [address] [place] [address] Sherly Pichardo, APPLICATION TRAINER Lumbar radiculopathy (Primary Dx) 06/16/[address] [facility] [address] [place] [address] Sherly Pichardo APPLICATION TRAINER TC: Visit Follow Up Plan 06/15/2024 9:45 AM EDT Office Visit [address] [address] Sherly Pichardo, APPLICATION TRAINER Lumbar post-laminectomy syndrome (Primary Dx); Chronic obstructive pulmonary disease, unspecified COPD type ([facility]); Lumbar spondylosis; Urinary incontinence, unspecified type 06/15/[address] [address] Bobby David MD Durable Medical Equipment 06/15/[address] [address] Skye Melton RN PUBLIC HEALTH TRAINING ASSISTANT Agreement and BPI Forms 06/15/2024 Travel 06/14/[address] [phone] Skye Melton RN Reschedule PUBLIC HEALTH TRAINING ASSISTANT Renewal appt 06/17/24 06/13/2024 Telephone [facility] [address] [place] [phone] Bobby David MD ER Follow-up 06/12/2024 Orders Only [facility] External Provider, [facility] 06/06/2024 Refill [facility] [address] [place] [address] Bobby David MD 05/31/2024 1:15 PM EST Office Visit [facility] [address] [place] [phone] Bobby David MD COPD (chronic obstructive pulmonary disease) with acute bronchitis (CMS/HCC) (CMS/HCC) (Primary Dx); Type 2 diabetes with complication (CMS/HCC); Rash 05/31/[address] [facility] [address] [place] [address] Bobby David MD 05/28/[address] [facility] [address] [place] [address] Bobby David MD 05/23/2024 Refill [facility] [address] [place] [address] Bobby David MD Chronic low back pain with sciatica, sciatica laterality unspecified, unspecified back pain laterality 05/18/2024 Telephone [facility] [address] [place] [phone] Bobby David MD FYI 05/17/[address] [facility] [address] [place] [address] Bobby David MD Transition Of Care (Tcm) (HDF scheduled. /) 05/17/2024 Telephone [facility] [address] [place] [phone] Bobby David MD Hospital Follow-up from Last 3 Months Immunizations Immunization Administration Dates Next Due Influenza Injectable Quadriv [...] Info) Description 09/01/2024 11:30 AM EDT Telemedicine [facility] [address] [place] [address] Name, MD Bobby [address] [place] [address] 09/02/2024 1:00 PM EDT Telemedicine [facility] [address] [place] [phone] Skye Melton RN 11/02/2024 9:30 AM EDT Office Visit [facility] [address] [place] [phone] Name, MD Bobby [address] [place] [address] Health Maintenance Due Date Last Done Comments [...] Procedure Name Priority Date/Time Associated Diagnosis Comments MR LUMBAR SPINE W AND WO CONTRAST Routine 08/03/2024 8:46 AM EDT Lumbar radiculopathy Lumbar post-laminectomy syndrome US RENAL BI Routine 08/01/2024 4:08 PM EDT POCT GLUCOSE Routine 07/06/2024 11:06 AM EDT Type 2 diabetes mellitus with other specified complication, unspecified whether alf insulin use ([facility]) XR CHEST 2 VIEWS Routine [...] mellitus with other specified complication, unspecified whether alf insulin use (CMS/HCC) POCT GLUCOSE Routine 06/22/2024 3:57 PM EDT Type 2 diabetes mellitus with other specified complication, unspecified whether alf insulin use (CMS/HCC) XR CHEST 2 VIEWS [...] complication (CMS/HCC) Atherosclerosis of coronary artery of [place] heart, unspecified vessel or lesion type, unspecified whether angina present Pain of toe of left foot LIPID PANEL, STANDARD Routine 12/29/2023 11:17 AM EDT Type 2 diabetes with complication (CMS/HCC) Atherosclerosis of coronary artery of [place] heart, unspecified vessel or lesion type, unspecified [...] Recently Relevant to Health Maintenance Results * MR Lumbar Spine w/ and w/o Contrast (08/03/2024 8:46 AM EDT) Anatomical Region Laterality Modality Spine, L-spine Magnetic Resonan ce 08/03/2024 8:46 AM EDT Narrative 08/03/2024 8:48 AM EDT ? [facility] ?[address] ?[place] [address] ? Magnetic Resonance Report ? Signed ? Patient: Ashleybenson LawrenceMarita Proctor ?MR#: MM ?? [id number] ? : 1960 ?Acct:[id number] ? Age/Sex: 63 / F ?ADM Date: 08/02/24 ? Loc: HO.MRI ? Attending Dr: Sherly Pichardo APPLICATION TRAINER ? Ordering Physician: Sherly Pichardo APPLICATION TRAINER ?? Date of Service: 08/02/24 ?? Procedure(s): MR lumbar spine wo/w con ?? Accession Number(s): [id number] ? cc: Frankie,Bobby GRADY; Sherly Pichardo ? CLINICAL HISTORY: H ??LAMINECTOMY W WOSENING CHRONIC LBP ? MR lumbar spine with and without gadolinium ? Comparison: CR - XR LUMBAR SPINE 2-3V - 06/12/24 17:26 EDT ?? MR/DC - MR LUMBAR SPINE WO CON - 03/12/20 10:51 EST ? Findings: ?? Bony alignment of the lumbar vertebral bodies is anatomic. ?? No acute fracture identified. ?? No bony destructive changes are seen. ?? The conus terminates at L1-2. No abnormal signal intensity or enhancement ?? is identified within the conus medullaris. ?? No mass lesion seen within the visualized portions of the retroperitoneum. ? Segmental analysis: ?? T11-12: There is a moderate-size right central disc protrusion. This ?? indents the ventral thecal sac but does not contact the thoracic spinal ?? cord. Neural foramina are patent. ?? T12-L1: Small central disc protrusion without central canal or neural ?? foraminal narrowing. ?? L1-2: Minimal disc desiccation. No disc bulge or protrusion. Mild facet ?? joint degenerative change. Central canal and neural foramina are patent. ?? L2-3: Disc height loss with disc desiccation and broad-based disc bulge. ?? Mild facet joint degenerative change. Central canal and neural foramina ?? are patent. ?? L3-4: Disc desiccation with broad-based disc bulge and moderate facet ?? joint degenerative change with hypertrophy of the ligamentum flavum. There ?? is juxta-articular enhancement surrounding the facet joints. This ?? combination results in moderate narrowing of the central canal with mild ?? bilateral neural foraminal narrowing. ?? L4-5: Disc height loss with disc desiccation. Broad-based disc bulge with ?? superimposed central and left central disc protrusion. Moderate facet ?? joint degenerative change. This combination results in moderate narrowing ?? of the central canal, especially involving the left lateral recess. ?? Moderate bilateral neural foraminal narrowing. ?? L5-S1: Prominent disc desiccation. There is a large right central disc ?? protrusion extending laterally into the neural foramen. Moderate facet ?? joint degenerative change. There is moderate narrowing of the right ?? lateral recess with severe narrowing of the no foramina bilaterally. ? IMPRESSION: ?? Multilevel degenerative disc disease and degenerative facet disease as ?? fully discussed above with areas of both central canal and neural ?? foraminal narrowing. This is most pronounced at the lumbosacral junction. ? This document has been electronically signed by: Geoff Brown MD on ?? 08/03/2024 08:46:54 ? Dictated By: ?Geoff Brown MD ? Signed By: ?<Electronically signed by Geoff Brown MD in OV> ? 08/03/24 0848 ? DD/ 0846 ? TD/TT: 08/03/24 0846 ? District Plant Superintendent: ? Procedure Note Donottanishainterpreter, Image - 08/03/2024 [place] [address] Magnetic Resonance Report Signed Patient: Marita Zapata MMR#: [id number] : 1960Acct:[id number] Age/Sex: 63 / FADM Date: 08/02/24 Loc: HO.MRI Attending Dr: Sherly CNONOR Ordering Physician: Sherly Pichardo Date of Service: 08/02/24 Procedure(s): MR lumbar spine wo/w con Accession Number(s): [id number] cc: Name,Bobby GRADY; Sherly Pichardo CLINICAL HISTORY: H LAMINECTOMY W WOSENING CHRONIC LBP MR lumbar spine with and without gadolinium Comparison: CR - XR LUMBAR SPINE 2-3V - 06/12/24 17:26 EDT MR/DC - MR LUMBAR SPINE WO CON - 03/12/20 10:51 EST Findings: Bony alignment of the lumbar vertebral bodies is anatomic. No acute fracture identified. No bony destructive changes are seen. The conus terminates at L1-2. No abnormal signal intensity or enhancement is identified within the conus medullaris. No mass lesion seen within the visualized portions of the retroperitoneum. Segmental analysis: T11-12: There is a moderate-size right central disc protrusion. This indents the ventral thecal sac but does not contact the thoracic spinal cord. Neural foramina are patent. T12-L1: Small central disc protrusion without central canal or neural foraminal narrowing. L1-2: Minimal disc desiccation. No disc bulge or protrusion. Mild facet joint degenerative change. Central canal and neural foramina are patent. L2-3: Disc height loss with disc desiccation and broad-based disc bulge. Mild facet joint degenerative change. Central canal and neural foramina are patent. L3-4: Disc desiccation with broad-based disc bulge and moderate facet joint degenerative change with hypertrophy of the ligamentum flavum. There is juxta-articular enhancement surrounding the facet joints. This combination results in moderate narrowing of the central canal with mild bilateral neural foraminal narrowing. L4-5: Disc height loss with disc desiccation. Broad-based disc bulge with superimposed central and left central disc protrusion. Moderate facet joint degenerative change. This combination results in moderate narrowing of the central canal, especially involving the left lateral recess. Moderate bilateral neural foraminal narrowing. L5-S1: Prominent disc desiccation. There is a large right central disc protrusion extending laterally into the neural foramen. Moderate facet joint degenerative change. There is moderate narrowing of the right lateral recess with severe narrowing of the no foramina bilaterally. IMPRESSION: Multilevel degenerative disc disease and degenerative facet disease as fully discussed above with areas of both central canal and neural foraminal narrowing. This is most pronounced at the lumbosacral junction. This document has been electronically signed by: Geoff Brown MD on 08/03/2024 08:46:54 Dictated By: Geoff Brown MD Signed By: <Electronically signed by Geoff Brown MD in OV> 08/03/24 0848 DD/ TD/TT: 08/03/2446 District Plant Superintendent: us Sherly Pichardo APPLICATION TRAINER IMG MRI PROCEDURES Final Resul t * US RENAL BI (08/01/2024 4:08 PM EDT) Anatomical Region Laterality Modality Abdomen Ultrasound 08/01/2024 4:08 PM EDT Narrative 08/01/2024 4:09 PM EDT ? [facility] ?[address] ?[place] [address] ? Ultrasound Report ? Signed ? Patient: Marita Zapata ?MR#: MM ?? [id number] ? : 1960 ?Acct:[id number] ? Age/Sex: 63 / F ?ADM Date: 05/05/25 ? Loc: HO.US ? Attending Dr: Blayne Srinivasan MD ? Ordering Physician: Blayne Srinivasan MD ?? Date of Service: 08/01/24 ?? Procedure(s): US renal BI ?? Accession Number(s): [id number] ? cc: Blayne Srinivasan MD; Name,Bobby GRADY [...] ?08/01/24 1609 ? DD/ 1608 ? TD/TT: 08/01/248 ? District Plant Superintendent: ? Procedure Note Rogelio, Elie - 08/01/2024 [place] [address] Ultrasound Report Signed Patient: Marita Zapata [facility]#: MM [id number] : 1960Acct:[id number] Age/Sex: 63 / FADM Date: 08/01/24 Loc: HO.US Attending Dr: Blayne Srinivasan MD Ordering Physician: Blayne Srinivasan MD Date of Service: 08/01/24 Procedure(s): US renal BI Accession Number(s): [id number] cc: Blayne Srinivasan MD; Name,Bobby GRADY CLINICAL [...] 08/01/24 1609 DD/ 1608 TD/TT: 08/01/24 1608 District Plant Superintendent: [facility] External Provider IMG US PROCEDURES Final Result * POCT Glucose (07/06/2024 11:06 AM EDT) Only the most recent of3 resultswithin the time period is included. Glucose Blood, POC 140 60 - 200 mg/dL QC Media Lot # [id number] Lot# Expiration Date 82,625 Blood Capillary blood specimen / Unknown 07/06/2024 11:06 AM EDT Bobbylexis David MD POINT OF CARE TEST ENTER/EDIT OR DERABLES Final Result * XR Chest 2 Views (07/06/2024 9:58 AM EDT) Only the most recent of2 resultswithin the time period is included. Anatomical Region Laterality Modality Chest Radiographic Ludivina ging 07/06/2024 9:58 AM EDT Narrative 07/06/2024 9:59 AM EDT ? [facility] ?[address] ?[place] [address] ?XRay Report ? Signed ? Patient: Ashley Melinda,Marita M ?MR#: MM ?? [id number] ? : 1960 ?Acct:[id number] ? Age/Sex: 63 / F ?ADM Date: 04/08/25 ? Loc: HO.XRAY ? Attending Dr: Basia Herndon MD ? Ordering Physician: Basia Herndon ?? Date of Service: 07/05/24 ?? Procedure(s): XR chest 2V ?? Accession Number(s): [id number] ? cc: Basia Herndon; Name,Bobby GRADY ? [...] ? DD/ 7 ? TD/TT: 07/06/24957 ? District Plant Superintendent: ? Procedure Note Rogelio, Image - 07/06/2024 [place] [address] XRay Report Signed Patient: Marita Zapata MMR#: MM [id number] : 1960Acct:[id number] Age/Sex: 63 / FADM Date: 07/05/24 Loc: ANGELA Attending Dr: Basia Herndon MD Ordering Physician: Basia Herndon Date of Service: 07/05/24 Procedure(s): XR chest 2V Accession Number(s): [id number] cc: Basia Herndon; Name,Bobby GRADY CLINICAL HISTORY: [...] in OV> 07/06/24958 DD/ 7 TD/TT: 07/06/24957 District Plant Superintendent: Basia Herndon MD IMG XR PROCEDURES Edited Resul t - Final * POCT Rapid Influenza B RYDER ID NOW (06/22/2024 4:41 PM EDT) Influenza B Negative Negative, Indeterminate [facility] QC Media Lot # [id number] [facility] Lot# Expiration Date [facility] Swab 06/22/2024 4:41 PM EDT Basia Herndon MD POINT OF CARE TEST ENTER/EDIT ORDERABLES Final Result Performing Organization Address City/[facility]/ZIP Co de Phone Number [facility] [address] [place] [phone] * POCT Rapid Influenza A RYDER ID NOW (06/22/2024 4:41 PM EDT) Influenza A Negative Negative, Indeterminate [facility] QC Media Lot # [id number] [facility] Lot# Expiration Date [facility] Swab 06/22/2024 4:41 PM EDT Basia Herndon MD POINT OF CARE TEST ENTER/EDIT ORDERABLES Final Result Performing Organization Address City/[facility]/ZIP Co de Phone Number [facility] [address] [place] [phone] * POCT Rapid Covid-19 BinaxNOW (06/22/2024 4:23 PM EDT) Rapid COVID Ag Negative QC Media Lot # [id number] Lot# Expiration Date [id number] Swab 06/22/2024 4:23 PM EDT Basia Herndon [...] 06/15/2024 11:3 3 AM EDT Sherly Pichardo APPLICATION TRAINER POINT OF CARE TEST ENTER/EDIT ORDERABLES Final Result * XR Lumbar Spine 2-3 Views (06/12/2024 6:34 PM EDT) Anatomical Region Laterality Modality Spine, L-spine Radiographic Ludivina ging 06/12/2024 6:34 PM EDT Narrative 06/12/2024 6:36 PM EDT ? [facility] [facility] ?[address] ?[place] [address] ?XRay Report ? Signed ? Patient: Ashley New C[place],Marita M ?MR#: MM ?? [id number] ? : 1960 ?Acct:[id number] ? Age/Sex: 63 / F ?ADM Date: 06/12/24 ? Loc: HO.ED ? Attending Dr: ? Ordering Physician: Catalina Kelly ?? Date of Service: 06/12/24 ?? Procedure(s): XR lumbar spine 2-3V ?? Accession Number(s): [id number] ? cc: Name,Bobby GRADY; Catalina Kelly ? CLINICAL HISTORY: severe lower back pain ? 3 views lumbar spine ? Comparison: MR/DC - MR LUMBAR SPINE WO CON - [...] DD/ 1834 ? TD/TT: 06/12/24 1834 ? District Plant Superintendent: ? Procedure Note Elie Mercado - 06/12/[address] [address] XRay Report Signed Patient: Marita Zapata [facility]#: MM [id number] : 1960Acct:[id number] Age/Sex: 63 / FADM Date: 06/12/24 Loc: HO.ED Attending Dr: Ordering Physician: Catalina Kelly Date of Service: 06/12/24 Procedure(s): XR lumbar spine 2-3V Accession Number(s): [id number] cc: Name,Bobby GRADY; Catalina Kelly CLINICAL HISTORY: severe lower back pain 3 views lumbar spine Comparison: MR/DC - MR LUMBAR SPINE WO CON - [...] in OV> 06/12/241834 DD/ 33 TD/TT: 06/12/241833 District Plant Superintendent: [facility] External Provider IMG XR PROCEDURES Final Result * (ABNORMAL) Albumin, Random Urine W/Creatinine (12/29/2023 11:20 AM EDT) Creatinine, Urine 157.96 mg/dL [facility] Microalbumin Urine 47.0 mg/L H [facility] Microalbum Creatinine Ratio Ur 29.7(H) <30 ug/mg cr [facility] Comment:Albumin/Creatinine R atio Reference Ranges: Normal: < 30 ug/mg creatinine Microalbuminuria: 30 - 300 ug/mg creatinineClinical Albuminuria: > 300 ug/mg creatinine Urine (Urine, Random) 12/29/2023 11:20 AM EDT 12/29/2023 1:01 PM EDT Bobby David MD LAB URINE ORDERABLES Final Resul t [facility] [address] [place] [phone] * (ABNORMAL) Lipid Panel, Standard (12/29/2023 11:17 AM EDT) Triglycerides 172(H) <150 mg/dL [facility] Comment:Desirable Triglyceri de: less than 150 mg/dLBorderline High Triglyceride 150-199 mg/dLHigh Triglyceride: 200-499 mg/dLVery High Triglyceride: greater than or equal to 5OO mg/dL Cholesterol 140 <200 mg/dL [facility] Comment:Desirable Cholestero l: less than 200 mg/dLBorderline High Cholesterol: 200-239 mg/dLHigh Cholesterol: greater than 239 mg/dL LDL Cholesterol Calculated 61 <100 mg/dL [facility] Comment:Desirable LDL: less than 100 mg/dLNear Optimal/Above Optimal LDL: 110- 129 mg/dLBorderline High LDL: 130-159 mg/dLHigh LDL: 160-189 mg/dLVery High LDL: greater than or equal to 190 mg/dL HDL Cholesterol 45 >40 mg/dL [facility] Comment:Desirable HDL: great er than 40 mg/dL Note: This HDL assay may give artificially low results in patients with liver disease. Blood Venous blood specimen / Unknown 12/29/2023 11:17 AM EDT 12/29/2023 1:03 PM EDT us Bobby David MD LAB BLOOD ORDERABLES Final Resul t [facility] [address] [place] [phone] [phone] * (ABNORMAL) Hm Colonoscopy (07/16/2022) Colonoscopy [...] Procedure: Mammography Report 1 us Bobby Name MD MUELLER BI PROCEDURES Final Result * Hm Pap Smear (02/27/2021 10:30 AM EST) Pap [...] [facility] Airplane Coverer: SEE COMMENT [facility] Comment: CULP, CT(ASCP) CT screening location: [address] ??[address] HPV nRNA E6/E7 Not Detected Not Detected [facility] Comment: Methodology: Director Of Culture-Mediated Amplification This assay detects E6/E7 viral messenger RNA (mRNA) from 14 high-risk HPV types (16,18,31,33,35,39,45,51,52,56,58,59,66,68). ? The analytical performance characteristics of this assay have been determined by [employer]. The modifications have not been cleared or approved by the FDA. This assay has been validated pursuant to the CLIA regulations and is used for clinical purposes. ?? For additional information, please refer to http://education.[employer]/faq/HXA177e5 (This link if provided for information/ educational [...] Monisha MAZARIEGOS LAB PATHOLOGY ORDERABLES Final Result [facility] [address] from Last 3 Months or Most Recently Relevant to Health Maintenance Insurance Care Teams Fire Captain Relationship Specialty Start Date End Date Name, MD Bobby [address] [place] [address] PCP - General Family Medicine 06/01/15 Eloina 05/13/24
--- OUTSIDE RECORDS SUMMARY | 2024-08-11 09:59 | XMS_ITS | Encounter Summary ---
Author Organization [employer] Address [address] [place] [address] 7[address] [place] [address] Care Team Providers Care Medical Device Name Role Phone Name, Bobby GRADY Primary Care Provider Inga Magaña PharmD Unavailable [phone] Reason for Visit * Reason Comments Med Refill Encounter Details Date Type Department Care Team (Late st Contact Info) Description 05/15/2022 Refill [facility] [address] [place] [address] Name, MD Bobby [address] [place] [address] Seasonal allergic rhinitis, unspecified trigger (Primary Dx) [...] Info) Description 09/01/2024 11:30 AM EDT Telemedicine [facility] [place] [address] Name, MD Bobby [facility] [address] 09/02/2024 1:00 PM EDT Telemedicine [address] [address] Skye Melton, HODA 11/02/2024 9:30 AM EDT Office Visit [facility] [address] Name, [place] [address] documented as of this encounter Visit Diagnoses Diagnosis Seasonal allergic rhinitis, unspecified trigger- Primary documented in this encounter Additional Health Concerns Assessment Noted Time PHQ-9 Depression Total Score: 0 03/11/20 11:47 AM EST documented as of this encounter Care Teams Medical Device Relationship Specialty Start Date End Date Name, MD Bobby [facility] [address] PCP - General Family Medicine 06/01/15 Inga Magaña, MiltonD [address] [place] [address] Pharmacist Internal Medicine 01/07/23 09/29/23 Eloina 05/13/24 documented as of this encounter
--- OUTSIDE RECORDS SUMMARY | 2024-08-11 09:59 | XMS_ITS | Encounter Summary ---
Author Organization [employer] Address [address] [place] [address] 7t [place] [address] Care Team Providers Care Terminal Supervisor Name Role Phone Name, Bobby GRADY Primary Care Provider Inga Magaña PharmD Unavailable [phone] Encounter Details Date Type Department Care Team (Late st Contact Info) Description 03/05/2022 Telephone [facility] [address] [place] [address] Monisha Linton CNM [address] [place] [address] Social History Tobacco Use Types Packs/Day Years [...] Info) Description 09/01/2024 11:30 AM EDT Telemedicine [facility] [address] [place] [address] [phone] Frankie, MD Bobby [address] [place] [address] 09/02/2024 1:00 PM EDT Telemedicine [facility] [address] [place] [phone] Skye Melton RN 11/02/2024 9:30 AM EDT Office Visit [facility] [address] [place] [address] Name, MD Bobby [address] [place] [address] documented as of this encounter Visit Diagnoses Not on filedocumented in this encounter Care Teams Terminal Supervisor Relationship Specialty Start Date End Date Name, MD Bobby [address] [place] [address] PCP - General Family Medicine 06/01/15 Inga Magaña PharmD [address] [place] [address] Pharmacist Internal Medicine 01/07/23 09/29/23 Eloina 05/13/24 documented as of this encounter
--- OUTSIDE RECORDS SUMMARY | 2024-08-11 09:59 | XMS_ITS | Data Portability ---
Author Organization [employer] Address [address] [place] [phone] Care Team Providers Care Supervisor Paste Mixing Name Role Phone HIM CCA OTHER NAME, MOHINI Primary Care Provider Assessment Encounter Date Assessment Date Assessment LastModified by Organization Details LastModified Time 05/27/2023 05/27/2023 I provided real -time medical direction via phone for this encounter, and was available for additional phone based assistance as needed. I have reviewed and agree with the Assessment and Plan as documented by the Drill Press Operator Numerical Control. We discussed the diagnostic uncertainty of home [...] to call 911- verbalized understanding of instructions [email or web address] Not available 05/27/2023 10:52:57 08/31/2023 08/31/2023 Ms. [...] did a neb one hour prior to daily release and dupe printer arrival. VSS, SpO2 95% on RA. Drill Press Operator Numerical Control on site reports wheezing b/l. Allergy to [...] Ag, QL IA, respiratory specimen [address], [address] 4 18:31:32 rapid flu (A+B) [address], [address] 4 18:31:52 BMP, serum or plasma [address], [address] 4 18:32:18 rapid SARS CoV 2 Ag, QL IA, respiratory specimen [address], [address] 4 09:38:44 rapid flu (A+B) [address], [address] 4 09:37:23 rapid strep group A, throat [address], [address] 4 09:37:50 BMP, serum or plasma 2023 024 NANCY [facility], [address] [place] [address], [address] 4 09:38:18 rapid SARS CoV 2 Ag, QL IA, respiratory specimen 2023 024 [email or web address] 0 [facility], [address] [place] [address], [id number] 4 11:19:29 rapid flu (A+B) 2023 024 [email or web address] 0 [facility], [address] [place] [address], [address] 4 11:19:31 rapid strep group A, throat 2023 024 [email or web address] 0 [facility], [address] [place] [address], [id number] 4 11:19:33 glucose, fingerstick , blood 2023 024 [email or web address] 0 [facility], [address] [place] [address], [id number] 4 11:30:51 Referral None recorded. Procedures None recorded. Surgeries None recorded. Imaging None recorded. Medication Orders methylpredn isolone sod succ (PF) 125 mg/2 mL solution for injection 2023 [facility], [address] [place] [address], [id number], 4 11:53:19 doxycycline hyclate 100 mg capsule 2023 024 [facility], [address] [place] [address], [id number], 4 14:23:57 doxycycline hyclate 100 mg capsule 2023 024 [facility], [address] [place] [address], [id number], 4 11:53:19 ipratropium 0.5 mg-albutero l 3 mg (2.5 mg base)/3 mL nebulizatio n soln 2023 024 [facility], [address] [place] [address], [id number], 4 11:53:19 prednisone 10 mg tablet 2023 024 [facility], [address] [place] [address], [id number], 4 14:23:58 magnesium sulfate 2 gram/50 mL in 0.9 % sodium chloride IV piggyback 2023 024 [facility], [address] [place] [address], [id number], 4 11:53:19 cefpodoxime 200 mg tablet 2023 024 [facility], [address] [place] [address], [id number], 4 13:59:54 prednisone 20 mg tablet 2023 024 [facility], [address] [place] [address], [id number], 4 17:38:03 prednisone 10 mg tablet 2023 024 [facility], [address] [place] [address], [id number], 4 13:59:54 prednisone 10 mg tablet 2023 024 [facility], [address] [place] [address], [id number], 4 12:00:49 prednisone 20 mg tablet [address] [facility], [address] [place] [address], [id number], 4 11:33:48 prednisone 10 mg tablet 2023 024 [email or web address] [id number], [address], [place], [address], 4 11:18:33 albuterol sulfate 2.5 mg/3 mL (0.083 %) solution for nebulizatio n 2023 024 [email or web address] 0 Not available 4 11:19:26 prednisone 20 mg tablet 2023 024 [email or web address] 0 Not available 4 11:19:25 prednisone 20 mg tablet 2023 024 [facility], [address] [place] [address], [id number], 4 13:43:28 Patient TargetsNo targets recorded. Patient InstructionsNo instructions recorded. Reason for Referral None Reported. Results Created Date Observation Date Name Description Value Unit Range Abnormal Flag Note LastModifiedBy Organization Detail LastModifiedTime 05/27/1905/27/2023 gluco se, david harman k, blood Blood Glucose: mg/dl 302 Not Available [facility] [address] [place] [address], [id number] 05/27/2023 11:19:35 05/27/19 24 05/27/2023 rapid flu (A+B) Flu negati ve Not Available [facility] [address] [place] [address], [id number] 05/27/2023 10:53:07 05/27/19 24 05/27/2023 rapid strep group A, throa t Strep negati ve Not Available [facility] [address] [place] [address], [id number] 05/27/2023 11:12:09 05/27/19 24 05/27/2023 rapid SARS CoV 2 Ag, QL IA, respi rator y speci men rapid SARS CoV 2 Ag, QL IA, respiratory specimen negati ve Not Available [facility] [address] [place] [address], [id number] 05/27/2023 10:53:06 12/24/19 24 12/24/2023 rapid flu (A+B) Flu negati ve Not Available [facility] ed [address] [place] [address], [id number] 12/24/2023 11:22:03 12/24/19 24 12/24/2023 rapid SARS CoV 2 Ag, QL IA, respi rator y speci men rapid SARS CoV 2 Ag, QL IA, respiratory specimen negati ve Not Available [facility] ed [address] [place] [address], [id number] 12/24/2023 11:22:00 Result Notes None recorded. Medical Equipment None Reported. Allergies Allergen ID Allergen Name Allergen Category Reaction Reaction Severity Criticality Documentation Date Start Date Code Code System Note Provider Name and Address Organization Details Recorded Time 4632 azithromy josephine medicatio n Not available Not available Not available 05/27/2023 71773 RxNorm Soila Langston MD [address] [place] [address],[address], [place], [address], [employer], YABUY 4 12:02:49 4633 Product containin g angiotens in-conver ting enzyme inhibitor (product) medicatio n Not available Not available Not available 05/27/2023 70408 009 SNOMED Soila Langston MD [address] [place] [address],[address], [place], [address], [employer], YABUY 4 12:02:55 4634 metformin medicatio n Not available Not available Not available 05/27/2023 6809 RxNorm Soila Langston MD [address] [place] [address],[address], [place], [address], [employer], YABUY 4 12:03:02 4635 Dilaudid medicatio n Not available Not available Not available 05/27/2023 48969 3 RxNorm AMS Soila Langston MD [address] [place] [address],[address], [place], [address], [employer], YABUY 4 12:03:32 6317 erythromy josephine medicatio n Not available Not available Not available 12/24/2023 4053 RxNorm BRANDT ROJO MD [address] [place] [address],[address], [place], [address], [facility] - [employer], YABUY 4 11:27:47 6318 metoprolo l Not available [...] Not Available Not Available No t Available [employer] Ultra Test strips USE DIRECTED TO TEST [...] MIX AND DRINK BOTTLE DIRECTED BY [facility] t active Not Available Not Available [...] Details Last Updated DateTime 4 84 /min 04248.8 g 20 /min 98.4 [degF] 152.4 cm 98 % 98 % 137 mm[Hg] 98 mm[Hg] Not Available [employer] 4 10:52:14 Date Recorded Oxygen saturation Oxygen saturation in Arterial blood by Pulse oximetry Heart rate Body temperature Respiratory rate Systolic blood pressure Diastolic blood pressure Provider Name and Address Organization Details Last Updated DateTime 4 93 % 93 % 92 /min 98 [degF] 20 /min 190 mm[Hg] 100 mm[Hg] Not Available [employer] 4 11:12:07 Date Recorded Oxygen saturation Oxygen saturation in Arterial blood by Pulse oximetry Body height Heart rate Respiratory rate Body weight Body temperature Systolic blood pressure Diastolic blood pressure Provider Name and Address Organization Details Last Updated DateTime 4 95 % 95 % 165.1 cm 85 /min 18 /min 70075.6 4 g 97.4 [degF] 125 mm[Hg] 86 mm[Hg] Not Available [employer] 4 11:27:44 Date Recorded Heart rate Body weight Respiratory rate Body temperature Body height Oxygen saturation Oxygen saturation in Arterial blood by Pulse oximetry Systolic blood pressure Diastolic blood pressure Provider Name and Address Organization Details Last Updated DateTime 4 96 /min 38339.6 4 g 18 /min 97.9 [degF] 165.1 cm 91 % 91 % 129 mm[Hg] 71 mm[Hg] Not Available [employer] 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 [id number] Zev Leger MD Main - [address] [phone] 07/26/2023 11:12:02 07/26/2023 17:20:43 Acute exacerbation of chronic obstructive pulmonary disease [id number] J44.1 This 62-year-ol d female with COPD called [facility] because of increased dyspnea. She uses several inhalers and prednisone 5 mg daily. She doesn't qualify for home oxygen. I ordered a prednisone taper. She will follow-up with her PCP. The patient agreed with this plan. Low back pain [id number] M54.50 [id number] Dasha Eubanks MD [facility] [address] [place] [phone] 08/31/2023 11:27:40 09/01/2023 12:35:19 Acute exacerbation of chronic obstructive pulmonary disease 119001388 J44.1 [id number] Santos Santoyo MD [facility] [address] [place] [address] 10/19/2023 17:19:16 10/20/2023 09:43:42 Acute exacerbation of chronic obstructive pulmonary disease [id number] J44.1 [id number] BRANDT ROJO MD [facility] - [address] [phone] 12/24/2023 11:18:42 12/24/2023 14:43:17 Acute exacerbation of chronic obstructive pulmonary disease [id number] J44.1 Evaluation in the field was performed by my daily release and dupe printer colleague, as noted above, I provided real-time [...] the ED for further evaluation . An [facility]. Rapid COVID and flu tests were [...] with the first dose given by the daily release and dupe printer. -Continue Zyrtec daily-Afte r she received the [...] the ED for further evaluation . An [facility]. Primary care, consider__ _ Dispositio n: ED for further eval given ongoing tachypnea and hypoxia despite treatment Health Concerns Section Related Observation LastModified by Organization Detai ls LastModified Time None Recorded Concern Status LastModified by Organization Details LastModified Time None Recorded Advance Directives Directive None Recorded Payers Insurance Date Sequence Insurance Name Policy Number Policy Mendez Covered Member ID Mendez Member ID Guarantor Name 12/24/2023 1 [facility] - DOS ON OR AFTER 2022 - DUAL ELIGIBLE - PENITENTIARY OPTIONS AND ONE CARE (MEDICARE REPLACEMENT/ADV ANTAGE - HMO) Marita Lawrence [id number] Marita Lawrence Notes Date Note Type Note Provider Name and Address Organization Details Recorded Time 05/27/2023 text/html HPI: Patient at home with known COPD. Not on oxygen at baseline. 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 O2 sat at baseline is 96% drops to 92% with exertion. .................. .................. .................. .................. .................. .................. .................. ............... CRC Nurse Triage Notes (Tashia Lazo): Comments: CRC RN DID NOT NEED FURTHER INFO .................. .................. .................. .................. .................. .................. .................. ............... Drill Press Operator Numerical Control Note From Cullen Joseph: Pt caox3 answers [...] home. 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 Pt [...] BGL 306mg/dl (no food or insulin today) [facility] orders albuterol neb, prednisone 40mg PO, administered [...] throat except when coughing Soila Langston MD [address] [place] [address],[address], [place], [address], [employer] 05/27/2023 12:35:05 07/26/2023 text/html CRC Nurse Triage Notes (Miko Vogt): Chief Complaints: Shortness of Breath/Dyspnea PMH: Hypertension, COPD/Asthma, Diabetes, Heart Disease Allergies: Unknown Comments: Automation Clerk verified the member's name//address and phone number. [...] emergency treatment if needed -HODA Whyte MD [address] [facility],[address], [place], [address], [facility] - [employer] [facility] 07/30/2023 06:44:37 08/31/2023 text/html HPI: Call returned [...] in clear full sentences. 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 [facility] Reviewed home care advise, ER precautions and reasons to call back. Verified contact information and allergies. .................. .................. .................. .................. .................. .................. .................. ............... CRC Nurse Triage Notes (Tashia Lazo): Comments: CRC RN DID NEED FURTHER INFO .................. .................. .................. .................. .................. .................. .................. ............... Drill Press Operator Numerical Control Note From Ben Delacruz: Smartcare visit for [...] cough with thick white mucus. [place] [facility] Eub[place], who prescribed 40 mg of Prednisone to be given on scene with remainder of prescription called the patient's Pharmacy. Reviewed red flags for ED. patient education provided. [facility] Medication Orders: prednisone 20 mg tablet: Administered .................. .................. .................. .................. .................. .................. .................. ............... Disposition: Fulfilled Dasha Eubanks MD [address] [facility],[address], [place], [address], [employer] 08/31/2023 17:40:50 10/19/2023 text/html CRC Nurse Triage Notes (Miko Vogt): Reason For Request: sob/hx COPD Chief Complaints: Shortness of Breath/Dyspnea PMH: Hypertension, COPD/Asthma, Diabetes, Heart Disease Allergies: Metoprolol Comments: Automation Clerk verified the member's name//address and phone number. [...] emergency treatment if needed -Kiran Vogt RN Drill Press Operator Numerical Control POC Test Results from Jayme Ben - ALS Rapid influenza antigen (19:05:46) Flu: - Rapid COVID antigen (19:05:52) COVID: - .................. .................. .................. .................. .................. .................. .................. ............... Drill Press Operator Numerical Control Note From Ben Delacruz: Smartcare visit for [...] swabs run and both negative. Consulted with [facility]. Santoyo who prescribed prednisone and cefpedoxime. First dose of prednisone given on scene with remainder of script sent to pharmacy. Reviewed red flags. Pt education provided. .................. .................. .................. .................. .................. .................. .................. ............... Disposition: Fulfilled Santos Santoyo MD [address] [facility],[address], [place], [phone], [employer] 10/19/2023 23:50:40 12/24/2023 text/html CRC Nurse Triage Notes (Miko Vogt): Reason For Request: Pt reporting COPD exacerbation Chief Complaints: Shortness of Breath/Dyspnea, COPD PMH: Hypertension, COPD/Asthma, Diabetes, Heart Disease Allergies: Metoprolol Comments: Automation Clerk verified the member's name//address and phone number. [...] emergency treatment if needed -Kiran Vogt RN Drill Press Operator Numerical Control Organization Information for [employer] Business Legal Name: [employer]? Address: [address] [place] [address], Fisheries Management Biologist: Bk Roblero MD CLIA No.: [id number] Drill Press Operator Numerical Control POC Test Results from [employer] iSTAT [...] .................. .................. .................. .................. .................. .................. ............... Drill Press Operator Numerical Control Note From Kal Hathaway: Dispatched to above [...] pink warm and dry, good radial pulse. [facility] contacted, ordered Chem 8, IV, Solumedrol, Covid and Flu test and Duoneb. 18g IV established, R AC, lab draw preformed, ISTAT checked, results uploaded. Covid-19 and Flu test checked, both negative. Patient started on Duoneb. 125mg Solumedrol administered IV. Patient reassessed, SPO2 still high 80s on RA, still tachypneic. [facility] updated, ordered 2g Mag IV. Patient administered 2g Mag IV. Patient reassessed with no change. [facility] updated, ordered additional Duoneb. Neb administered. Patient walked about 15 steps to bathroom, became tachypneic in the 30s. [facility] updated, recommends transport to ER for further evaluation. Patient agrees with this. 911 contacted. [facility] responded. Verbal report given to [facility] Drill Press Operator Numerical Control, took over patient care. Patient being transported to [facility]. SC8 clear. EOR. .................. .................. .................. .................. .................. .................. .................. ............... Disposition: Fulfilled BRANDT ROJO MD [address] [place] [address],[address] [facility], [place], [address], [employer] - [employer] 12/24/2023 13:27:13 OBGyn Episode No OBEpisode recorded.
--- OUTSIDE RECORDS SUMMARY | 2024-08-11 09:59 | XMS_ITS | Encounter Summary ---
Author Organization [employer] Address [address] [place] [address] [address] [place] [address] Care Team Providers Care Broadcast Operations Engineer Name Role Phone Name, Bobby GRADY Primary Care Provider Inga Magaña PharmD Unavailable [phone] Encounter Details Date Type Department Care Team (Late Contact Info) Description 09/01/2022 Abstract [facility] MED[facility]INE [address] [place] [id number] NameBobby MD [address] [place] [id number] Social History Tobacco Use Types Packs/Day Years [...] Telemedicine [facility] MEDICINE [address] [place] [address] [phone] Bobby David MD [address] [place] [phone] 09/02/2024 1:00 PM EDT Telemedicine [facility] MEDICINE [address] [place] [id number] Skye Melton, HODA 11/02/2024 9:30 AM EDT Office Visit [address] [address] Name, [place] [address] documented as of this encounter Visit Diagnoses Not on filedocumented in this encounter Additional Health Concerns Assessment Noted Time PHQ-9 Depression Total Score: 0 03/11/20 22 11:47 AM EST documented as of this encounter Care Teams Broadcast Operations Engineer Relationship Specialty Start Date End Date Name, [place] [address] PCP - General Family Medicine 06/01/15 Inga Magaña PharmD [address] [place] [phone] Pharmacist Internal Medicine 01/07/23 09/29/23 [place] 05/13/24 documented as of this encounter
--- OUTSIDE RECORDS SUMMARY | 2024-08-11 10:00 | XMS_ITS | Data Portability ---
Author Organization 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 Name Role Phone [facility] OTHER NAME, MOHINI Primary Care Provider Assessment Encounter Date Assessment Date Assessment LastModified by Organization Details LastModified Time 05/03/2024 05/03/2024 Labs 04/27:Na 129-K 4.0-Bun 38-Cr 0.7-wbc 15.9-hgb 15.2- hct 45-plt 240 [email or web address] Not available 05/03/2024 18:08:16 05/05/2024 05/05/2024 Labs 04/27:Na 129-K 4.0-Bun 38-Cr 0.7-wbc 15.9-hgb 15.2- hct 45-plt 240 [email or web address] Not available 05/05/2024 12:09:46 05/11/2024 05/11/2024 Labs [...] exacerbatio n of chronic obstructive pulmonary disease 868317106 Active 2024 Not Available [facility] 5 13:13:30 Pneumonia caused by Influenza A virus 723814531 Active 2024 Not Available [facility] 5 12:06:26 Pneumonia caused by respiratory syncytial virus 738836694 Active 2024 Not Available [facility] 5 12:06:27 Type 2 diabetes mellitus 67966634 Active 2024 Not Available [facility] 5 12:09:46 Essential hypertensio n 70966397 Active 2024 Not Available [facility] 5 12:10:17 Hypothyroid ism 70361632 Active 2024 Not Available [facility] 5 12:10:48 Gastroesoph ageal reflux disease without esophagitis 600055060 Active 2024 Not Available [facility] 12:11:49 Primary gout 91292300 Active 2024 Not Available [facility] 5 12:11:50 Muscle weakness 00266405 Active 2024 Not Available [facility] 5 09:55:06 Unsteady when standing 108305267 Active 2024 Not Available [facility] 5 09:56:09 Difficulty walking 450059951 Active 2024 Not Available [facility] 5 09:56:40 Chronic obstructive pulmonary disease 90124193 Active 2024 GEETA KWOK [address] [facility], [address], [place], [address] , [facility] 5 14:52:55 Leukocytosi s 929720752 Active 2024 from steriod use MIGUE BROOKSRD, [facility] [address], [address], [place], [address] , [facility] 5 14:54:46 Coronary arterioscle rosis 32411668 Active 2024 MIGUEANNETTE BRISENO, [facility] [address] [facility], [address], [place], [address] , [facility] 5 15:05:30 Gout 41213859 Active 2024 MIGUEANNETTE BRISENO, [address], [address], [place], [address] , [facility] 5 15:09:53 Allergic rhinitis 20886095 Active 2024 MIGUE BRISENO, [facility] [address] [facility], [address], [place], [address] , [facility] 5 15:17:53 Smoker 80844900 Active 2024 MIGUE BRISENO, [facility] [address] [facility], [address], [place], [address] , [facility] 5 15:27:03 Uncomplicat ed asthma 653176037 Active 2024 Not Available [facility] 5 14:07:57 Old myocardial infarction 6874459 Active 2024 Not Available [facility] 5 14:08:17 Obstructive sleep apnea syndrome 76126634 Active 2024 Not Available [facility] 5 14:09:00 Disorder of nervous system due to type 2 diabetes mellitus 121696022 Active 2024 Not Available [facility] 5 14:09:32 Problem Notes None recorded. Medical Equipment None Reported. Allergies Allergen ID Allergen Name Allergen Category Reaction Reaction Severity Criticality Documentation Date Start Date Code Code System Note Provider Name and Address Organization Details Recorded Time 78187 Product containin g angiotens in-conver ting enzyme inhibitor (product) medicatio n angioedem a severe Not available 04/28/20242024 08546 009 SNOMED Not Available [facility] 15:23:36 04908 enalapril Not available Not available Not available high 04/28/20242017 3827 RxNorm Other react ion(s ): Anaph ylaxi s Chiquita Guardado MD [address] [place] [address], [address], [place], [address], [facility] 5 17:30:53 80987 metformin medicatio n Not available Not available Not available 04/28/20242024 6809 RxNorm Not Available [facility] 5 15:22:33 02849 hydromorp cb medicatio n Not available Not available high 04/28/20242022 3423 RxNorm Other react ion(s ): TINGL ING, PT DOES NOT LIKE THE FEELI NG MED GIVES HER Chiquita Guardado MD [address] [facility], [address], [place], [address], [facility] 5 17:31:40 42595 azithromy josephine medicatio n Not available Not available Not available 05/03/2024 96832 RxNorm Chiquita Guardado MD [address] [place] [address], [address], [place], [address], [facility] 5 17:30:27 08431 erythromy josephine medicatio n anaphylax is Not available high 05/03/20242010 4053 RxNorm Other react ion(s ): Hives /Urti caria , pustu les over entir e body, Unkno wn Other React ion(s ): Unkno wn Chiquita Guardado MD [address] [place] [address], [address], [place], [address], [facility] [employer] [facility] 5 17:31:13 55436 lisinopri l medicatio n Not available Not available Not available 05/03/2024 44042 RxNorm Chiquita Guardado MD [address] [place] [address], [address], [place], [address], [facility] 17:31:53 56143 metoprolo l Not available Not available Not available Not available 05/03/2024 6918 RxNorm Chiquita Guardado MD [address] [place] [address] [address], [place], [address], [facility] 17:32:14 Medications Name Sig Start Date Stop [...] Updated DateTime 5 165.1 cm 27.1 kg/m2 77184.1 2 g 78 /min 18 /min 97.5 [degF] 95 % 95 % 124 mm[Hg] 62 mm[Hg] Chiquita Guardado MD [address] [facility] [address], [place], [address] , [facility] 5 17:39:40 Date Recorded Body height Heart rate Respiratory rate Body temperature Oxygen saturation Oxygen saturation in Arterial blood by Pulse oximetry Systolic blood pressure Diastolic blood pressure Provider Name and Address Organization Details Last Updated DateTime 5 165.1 cm 86 /min 18 /min 97.5 [degF] 96 % 96 % 129 mm[Hg] 78 mm[Hg] JOHAN VU NP [address] [facility] [address], [place], [address] , [facility] 5 12:09:17 Date Recorded Body height Body temperature Respiratory rate Heart rate Oxygen saturation Oxygen saturation in Arterial blood by Pulse oximetry Provider Name and Address Organization Details Last Updated DateTime 5 165.1 cm 97.4 [degF] 20 /min 72 /min 95 % 95 % GEETA KWOK [address] [facility], [address], [place], [address], [facility] 5 16:23:28 Date Recorded Body height Heart rate Respiratory rate Body temperature Oxygen saturation Oxygen saturation in Arterial blood by Pulse oximetry Systolic blood pressure Diastolic blood pressure Provider Name and Address Organization Details Last Updated DateTime 165.1 cm 80 /min 20 /min 97.4 [degF] 95 % 95 % 155 mm[Hg] 65 mm[Hg] JOHAN VU NP [address] [facility], [address], [place], [address], [facility] 10:33:52 Date Recorded Body height Respiratory rate Oxygen saturation Oxygen saturation in Arterial blood by Pulse oximetry Provider Name and Address Organization Details Last Updated DateTime 05/04/2024 165.1 cm 20 /min 95 % 95 % GEETA KWOK [address] [facility], [address], [place], [address], [facility] 16:47:12 Social History Question Answer Notes LastModified by Organization Details LastModified Time Tobacco Smoking Status Former Smoker quit 2017, then started again, now none x 2 months. Chiquita Guardado MD [address] [facility], [address], [place], [address], [facility] 05/03/2024 22:40:28 Do You Have An Advance Directive? Yes Information not available 05/01/2024 What Is Your Code Status? Full Code Information not available 05/01/2024 Where Do You Live? [facility] With Information not available 05/03/2024 Legal Guardian? No Informati on not available 05/03/2024 Do You Have A Medical Power Of [employer]? Yes Information not available 05/03/2024 What Was The Date Of Your Most Recent Tobacco Screening? 05/03/2024 Information not available 05/03/2024 Do You Have An Out Of Hospital DNR? No Information not available 05/01/2024 What Is Your Relationship Status? Information not available 05/01/2024 How Much Tobacco Do You Smoke? No Information not available 05/03/2024 Has Tobacco Cessation Counseling Been Provided? Yes Encouraged To Stay Quit Information not available 05/03/2024 On What Date Was Tobacco Cessation Counseling Provided? 05/03/2024 Information not available 05/03/2024 Sex: Unknown Functional Status Question Answer Note LastModified by Organizat ion Details LastModified Time Do you use any illicit or recreational drugs? No Information not available 05/01/2024 Do you or have you ever used any other forms of tobacco or nicotine? No Information not available 05/01/2024 What is your level of alcohol consumption? None Information not available 05/01/2024 Mental Status None recorded. Family History Nothing Reported. Medical History No medical history recorded. Gynecological HistoryNo gynecological history recorded. Obstetrics History GPAL:G 0 P 0 0 0 0 Immunizations Vaccine Type Date Status Note Provider Nam e and Address Organization Details Recorded Time Tdap 0 completed Samuel Everettsebastian-Malik [facility] 04/29/2024 12:14:00 Tdap 3 completed Samuel Everettsebastian-Malik [facility] 04/29/2024 12:14:06 Pneumococcal conjugate PCV 13 3 completed Samuel Everettsebastian-Malik [facility] 04/29/2024 12:14:27 pneumococcal polysaccharide PPV23 0 completed Samuel Everettsebastian-Malik [facility] 04/29/2024 12:14:43 influenza, unspecified formulation 1 completed [facility] SteadyFaresebastian-Malik [facility] 04/29/2024 12:15:03 influenza, unspecified formulation 2 completed [facility] SteadyFaresebastian-Malik [facility] 04/29/2024 12:15:20 influenza, unspecified formulation 3 completed Samuel Felipe-Malik [facility] 04/29/2024 12:15:25 influenza, unspecified formulation 4 completed Samuel SteadyFaresebastian-Malik [facility] 04/29/2024 12:15:30 SARS-COV-2 (COVID-19) vaccine, UNSPECIFIED 1 completed Samuel Everettsebastian-Malik [facility] 04/29/2024 12:16:07 SARS-COV-2 (COVID-19) vaccine, UNSPECIFIED 1 completed Samuel SteadyFaresebastian-Malik [facility] 04/29/2024 12:16:12 SARS-COV-2 (COVID-19) vaccine, UNSPECIFIED 1 completed Samuel Chappell [facility] 04/29/2024 12:16:16 SARS-COV-2 (COVID-19) vaccine, UNSPECIFIED 2 completed Samuel Chappell [facility] 04/29/2024 12:16:21 SARS-COV-2 (COVID-19) vaccine, UNSPECIFIED 2 completed Samuel Chappell [facility] 04/29/2024 12:16:27 SARS-COV-2 (COVID-19) vaccine, UNSPECIFIED 3 completed Samuel Chappell [facility] 04/29/2024 12:16:41 SARS-COV-2 (COVID-19) vaccine, UNSPECIFIED 4 completed Samuel Chappell [facility] 04/29/2024 12:16:51 zoster, unspecified formulation 3 completed Samuel Chappell [facility] 04/29/2024 12:17:13 zoster, unspecified formulation 3 completed [facility] Ta [facility] 04/29/2024 12:17:19 Past Encounters Encounter ID Performer Location Encounter Start Date Encounter Closed Date Diagnosis/Indication Diagnosis SNOMED-CT Code Diagnosis ICD10 Code Diagnosis Note [id number] GEETA KWOK [address] [place] [address] 04/29/2024 10:45:26 05/03/2024 09:36:15 Chronic obstructive pulmonary disease 44384252 J44.9 2/ RSV/Influe nzaon presentati on O2 sats as low as 83 % and tachypneic 26tx inpatient with IV steroids, neb tx and abxcont doxycyclin e BID for 2 more dayscont on neb tx prn, albuterol inhaler prncont trelegy, respimat, dupixent. roflumilas tnow on prednisone taper , resume 2.5 mg when tapercompl etedmonito r resp status. Type 2 asa betes mellitus 94390784 E11.9 hx of neuropathy On trulicity, Insulin SSC, lyrica, jardiancec ont lantus at hsrobaxin prn for neuropathy painmonito r BGL TID Hypothyroidism 17359333 E03.9 continue on levothyrox inemonitor tsh prn Coronary arteriosclerosis 35068730 I25.10 HX of HLD, HTNon statincont on asamonitor for cardiac sx Essential hypertension 05073699 I10 cont on coreg dailymonit or BP Gout 94631080 M10.9 cont allopurino l dailyfollo w uric acid level prn Smoker 79139098 F17.200 reports that she has not smoked in 1 monthnow on nicotine patch 21 mgprovide support for cessation Hyperlipidemia 59506065 E78.5 cont atorvastat inmonitor labs prn Gastroesop hageal reflux disease without esophagitis 530819092 K21.9 cont omeprazole dailymonit or GI sx Allergic rhinitis 030007 04 J30.9 cont on fluticason e, montelukas t, cetirizine Leukocytosis 989834037 D 72.829 chronic from chronic steriod usefollow labs Low back pain 786692325 M54.50 cont lido patch qdpercocet prnon robaxin for neuropathy as well [id number] Chiquita Guardado MD [facility] [address] [place] [address] 05/03/2024 17:29:21 05/16/2024 12:42:00 Chronic obstructive pulmonary disease 83212992 J43.8 S/P several recent exacerbati ons, now [...] as planned. Type 2 asa betes mellitus 02122056 E11.42 Some high sugars since here, likely due to prednisone , expect improvemen t as taper continues. Continue Lantus 35U BID, Trulicity 1.5 mg weekly, Jardiance 10 mg qd, and SSI.Contin ue Lyrica 100 mg TID and methocarbo mol 750 mg q 8 hrs prn for neuropathy pain.Monit or fingerstic ks TID and HgA1C as outpt. Hypothyroidism 57444922 E03.8 Continue on levothyrox ine 112 mcg qdMonitor TSH as outpt. Coronary arteriosclerosis 59954478 I25.10 No recent sxs.Contin ue atorvastat in 80 mg qd, carvedilol 6.25 mg BID (hold for SBP<90), and ASA 81 mg qd.Monitor for sxs.F/U with cardio as planned. Essential hypertension 88266966 I10 Good control on meds as above.Chantel tor BP and labs. Gout 68812708 M10.09 No current sxs.Contin ue allopurino l 100 mg qdMonitor for flare. Smoker 70852047 F17.200 No longer smoking since recent hospitaliz ations.Con tinue nicotine patch 21 mg qd, taper as outpt.Cont inue to encourage abstinence . Hyperlipidemia 48175304 E78.49 Continue atorvastat in 80 mg qdMonitor labs as outpt. Gastroesop hageal reflux disease without esophagitis 597794603 K21.9 No current sxs.Contin ue omeprazole qdMonitor GI sxs Allergic rhinitis 115584 04 J30.89 Continue fluticason e nasal spray, montelukas t, and cetirizine Monitor sxs. Leukocytosis 072287022 D 72.828 Thought to be due to prednisone .Monitor Low back pain 467179287 M54.59 Under fair control.Co ntinue robaxin and Lyrica as above and lidocaine patch qd, and Percocet 7.5/325 mg q 6 hrs prn.PT/OT as above. Intertrigo 85222017 L30. 4 Continue diflucan 150 mg qod x 3 doses and will start nystatin cream BID.Monito r for healing. Asthenia 19397377 R53.1 Very deconditio bernice.Needs PT/OT for strengthen ing, balance, gait training, safety and function.C ontinue fall precaution s.Monitor for safety. [id number] GEETA KWOK [address] [place] [address] 05/04/2024 11:59:27 05/16/2024 14:09:43 Viral pharyngitis 8658059 B34.9 throat and tonsil noted with erythema and slight swelling, not exudateswi ll add lozenges take 1 prn Q2 and warm water and salt rinses for comfort qid prn Intertrigo 85217807 L30. 4 acute onset over 1-2 dayserythe matous and scattered dry patchy rash noted covering vast majority of left and right buttockscu rrently rx diflucan qod for 3 dosesdue to pruritis will add clotrimazo le/beta BID for 10 daydiscuss ed with nursing will re eval in 2 days [id number] MANDO DAVID [address] [place] [address] 05/05/2024 12:08:09 05/10/2024 11:42:42 Chronic obstructive pulmonary disease 60715878 J44.9 2/ RSV/Influe nzaDoing betterWean ed off K8Wbpfxdue off prednisone .Doxy completed. Continue nebs and inhalers.C ombivent dose currently 2 inh bid, not typical but will not change as med managed by Pulmonolog ist.Monito r Type 2 asa betes mellitus 62975990 E11.9 BS borderline low in am and at lunchStill on prednisone taper.Disc ussed with pt.Plan -Continue trulicity and jardiance and SSIReduce lantus to 25 units q HS, continue 35 units in amAdd large portions to diet, refer to faculty research physician per pt. request, and assure HS snack (manuela crackers and PB on dinner tray)Monit or closely and adjust meds as needed. Hypothyroidism 82069961 E03.9 continue on levothyrox inemonitor tsh prn Coronary arteriosclerosis 99893186 I25.10 HX of HLD, HTNon statin, coreg, ASAmonitor for cardiac sx Essential hypertension 20737898 I10 cont on coreg dailymonit or BP Gout 82898706 M10.9 cont allopurino l dailyfollo w uric acid level prn Smoker 30196198 F17.200 reports that she has not smoked in 1 monthnow on nicotine patch 21 mgprovide support for cessation Hyperlipidemia 70317779 E78.5 cont atorvastat inmonitor labs prn Gastroesop hageal reflux disease without esophagitis 399680076 K21.9 cont omeprazole daily - came in on this doseUnsure of baseline, but will continue this dose for now, mahesh. with higher doses of prednisone .Consider dose taper when more stable and if stays LTC.monito r GI sx Allergic rhinitis 270338 04 J30.9 cont on fluticason e, montelukas t, cetirizine Leukocytosis 276991239 D 72.829 chronic from chronic steriod use - improving. 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 [id number] GEETA KWOK [address] [place] [address] 05/11/2024 13:31:15 05/12/2024 14:06:40 Type 2 diabetes mellitus 64644434 E11.9 BS borderline low in am and at lunchStill on prednisone taper.Cont inue trulicity and jardiance and SSIReduce lantus to 25 units q HS, continue 35 units in amMonitor closely and adjust meds as needed. Dermal mycosis 11589729 B36.9 Breast folds, buttocksCo ntinue diflucan and topical antifungal /steroid cream.Keep areas clean and dryMonitor closely. Gastroesop hageal reflux disease without esophagitis 543421469 K21.9 cont omeprazole daily - came in on this doseUnsure of baseline, but will continue this dose for now, mahesh. with higher doses of prednisone .Consider dose taper when more stable and if stays LTC.monito r GI sx Chronic ob structive pulmonary disease 78914670 J44.9 2/2 RSV/Influe nzaDoing betterWean ed off I3Agwvdogv off prednisone .Doxy completed. Continue nebs and inhalers.C ombivent dose currently 2 inh bid, not typical but will not change as med managed by Pulmonolog ist.Monito r Leukocytosis 124920627 D 72.829 chronic from chronic steriod use - improving. follow labs Essential hypertension 80267031 I10 cont on coreg dailymonit or BP Smoker 92172924 F17.200 reports that she has not smoked in 1 monthnow on nicotine patch 21 mgprovide support for cessation Pressure i njury of coccygeal region of back stage II 8960871714 3387367 L89.152 patient reporting coccyx painfollow ed by wound NPreiterat ed [employer]ADLE [employer] recommenda tions to Turn, reposition & offload Q2 hours & PRN to aid in wound healing. Encourage appropriat e dietary supplement ation to aid in wound healing. [id number] JOHAN VU NP [facility] [address] [place] [address] 05/12/2024 10:32:45 05/20/2024 10:27:09 Type 2 diabetes mellitus 81715842 E11.9 BS borderline low a few weeks ago, lantus reduced to 35 units q am, 25 units q hs.Remains on trulicity, jardiance, and lispro SSI.BS improved on reduced dose of lantus.Of note, prednisone taper ending 05/15.Pt. will continue to monitor BS at home and adjust insulin as needed. Dermal mycosis 03226382 B36.9 Breast folds, buttocks; now improving. Completed diflucan.M ay continue topical antifungal /steroid cream.Keep areas clean and dryMonitor closely. Gastroesop hageal reflux disease without esophagitis 372784394 K21.9 cont omeprazole daily Chronic ob structive pulmonary disease 30872892 J44.9 2/ RSV/Influe nzaResolve d.Weaned off X4Helotthi off prednisone .Doxy completed. Continue nebs and inhalers.M onitor Leukocytosis 492445570 D 72.829 chronic from chronic steriod use - improving. follow labs as outpt. Hypothyroidism 33588196 E03.9 continue on levothyrox inemonitor tsh prn Coronary arteriosclerosis 73609519 I25.10 HX of HLD, HTNon statin, coreg, ASAmonitor for cardiac sx Essential hypertension 18734331 I10 cont on coreg dailymonit or BP Gout 59647947 M10.9 cont allopurino l dailyfollo w uric acid level prn Smoker 37551606 F17.200 reports that she has not smoked in 1 monthnow on nicotine patch 21 mgprovide support for cessation - wishes to continue to not smoke upon d/c home. Hyperlipidemia 40395183 E78.5 cont atorvastat inmonitor labs prn Allergic rhinitis 005942 04 J30.9 cont on fluticason e, montelukas t, cetirizine Low back pain 539538063 M54.50 cont lido patch qdpercocet prnon robaxin for neuropathy as well Health Concerns Section Related Observation LastModified by Organization Detai ls LastModified Time None Recorded Concern Status LastModified by Organization Details LastModified Time None Recorded Advance Directives Directive Y: Payers Encounter Date Sequence Insurance Name Policy Number Policy Mendez Covered Member ID Mendez Member ID Guarantor Name 05/03/2024 1 [facility] DOS ON OR AFTER 2022 - MEDICARE [place]AGE [place]/ADV ANTAGE - PPO) Marita Lawrence [id number] Marita Lawrence 05/04/2024 1 [facility] DOS ON OR AFTER 2022 - [place]/ADV ANTAGE - PPO) Marita Lawrence [id number] Marita Lawrence 05/05/2024 1 [facility] - DOS ON OR AFTER 2022 - [place]/ADV ANTAGE - PPO) Marita Lawrence [id number] Marita Lawrence 05/11/2024 1 [facility] DOS ON OR AFTER 2022 - [place]/ADV ANTAGE - PPO) Marita Lawrence [id number] Marita Lawrence 05/12/2024 1 [facility] DOS ON OR AFTER 2022 - [place] RE[place]/ADV ANTAGE - PPO) Marita Lawrence [id number] Marita Lawrence Notes Date Note Type Note [...] influenza also on [facility]14. [facility] and hypoxia.She had an elevated WBC attributed to steroid use.CXR was non-acute.She was tachycardic and needing oximask to maintain sats >90%.She was restarted on solumedrol and doxy, continued on duonebs, and usual inhalers.Seen by pulmonary who recommended higher dose and more prolonged steroids.She was able to be weaned back to home level of O2, 2L by [place], but remained weak and wastransferred here for [...] with post-op hypothyroidism. Chiquita Guardado MD [address] [facility], [address], [place], [address], [employer] [facility] 05/14/2024 17:33:09 5 text/html Marita is seen [...] dot and spread quickly. GEETA KWOK [address] [facility], [address], [place], [address], [employer] 05/13/2024 16:49:37 5 text/html Marita is seen [...] snack. She is requesting to see the faculty research physician.She then shows me the rash on her [...] with post-op hypothyroidism. JOHAN VU NP [address] [facility], [address], [place], [address], [facility] [employer] 05/05/2024 12:42:06 5 text/html This is a [...] is nio acute concerns. GEETA KWOK [address] [facility], [address], [place], [address], [facility] 05/11/2024 16:45:23 5 text/html Marita is seen [...] with post-op hypothyroidism. JOHAN VU NP [address] [facility], [address], [place], [address], [facility] 05/20/2024 10:22:41 OBGyn Episode No OBEpisode recorded.
--- OUTSIDE RECORDS SUMMARY | 2024-08-11 10:00 | XMS_ITS | Encounter Summary ---
Author Organization [employer] Address [address] [place] [address] Care Team Providers Care Child Welfare Consultant Name Role Phone Name, Bobby GRADY Primary Care Provider [phone] Encounter Details Date Type Department Care Team (Latest Contact Info) Description 04/29/2024 Lab Requisition [facility] - Main Lab [address] [place] [address] Yared Weaver MD [address] [place] [address], [phone] Atherosclerotic heart disease of [place] coronary artery without angina pectoris Social History [...] 5:10 AM EST Atherosclerotic heart disease of [place] coronary artery without angina pectoris BASIC METABOLIC PANEL Routine 04/29/2024 5:10 AM EST Atherosclerotic heart disease of [place] coronary artery without angina pectoris documented in this encounter Results * (ABNORMAL) Basic metabolic panel (04/29/2024 5:10 AM EST) Sodium 143 133 - 145 mmol/L LAB CHEMISTRY METHOD 04/29/2024 11:20 AM EST [facility] Potassium 4.5 3.5 - 5.5 mmol/L LAB CHEMISTRY METHOD 04/29/2024 11:[address] [facility] Chloride 106 96 - 110 mmol/L LAB CHEMISTRY METHOD 04/29/2024 11:[address] [facility] CO2 31 21 - 32 mmol/L LAB CHEMISTRY METHOD 04/29/2024 11:[address] [facility] Anion Gap 6 3 - 11 LAB CHEMISTRY METHOD 04/29/2024 11:[address] [facility] Glucose 97 70 - 100 mg/dL LAB CHEMISTRY METHOD 04/29/2024 11:[address] [facility] BUN 34(H) 5 - 25 mg/dL LAB CHEMISTRY METHOD 04/29/2024 11:[address] [facility] Creatinine 0.80 0.50 - 1.10 mg/dL LAB CHEMISTRY METHOD 04/29/2024 11:[address] [facility] eGFR 82 >=60 mL/min/1. 73m2 LAB CHEMISTRY METHOD 04/29/2024 11:[address] [facility] Comment:Calculation based on the??Chronic Kidney Disease Epidemiology Collaboration (CKD-EPI) equation refit??without adjustment for race. BUN/Creatinine Ratio 42.5 LAB CHEMISTRY METHOD 04/29/2024 11:[address] [facility] Calcium 7.9(L) 8.5 - 10.5 mg/dL LAB CHEMISTRY METHOD 04/29/2024 11:[address] [facility] Blood Venous blood specimen / Unknown Venipuncture / Unknown 04/29/2024 5:10 AM EST 04/29/2024 9:30 AM EST us Yared Weaver MD LAB BLOOD ORDERABLES Final Resul t [facility] [address] [place] [address], * (ABNORMAL) Complete blood count (04/29/2024 5:10 AM EST) [facility] Signature WBC 18.2(H) 4.8 - 10.8 K/mcL LAB HEMETOLOGY METHOD 04/29/2024 10:[address] [facility] RBC 5.30(H) 3.80 - 4.80 M/mcL LAB HEMETOLOGY METHOD 04/29/2024 10:[address] [facility] Hemoglobin 15.0 11.5 - 16.0 g/dL LAB HEMETOLOGY METHOD 04/29/2024 10:[address] [facility] Hematocrit 48.0(H) 35.0 - 47.0 % LAB HEMETOLOGY METHOD 04/29/2024 10:[address] [facility] MCV 90.2 79.0 - 98.0 FL LAB HEMETOLOGY METHOD 04/29/2024 10:[address] [facility] MCH 28.2 27.0 - 32.0 pcg LAB HEMETOLOGY METHOD 04/29/2024 10:[address] [facility] MCHC 31.3(L) 32.0 - 37.0 g/dL LAB HEMETOLOGY METHOD 04/29/2024 10:[address] [facility] RDW 14.7 11.0 - 15.0 % LAB HEMETOLOGY METHOD 04/29/2024 10:[address] [facility] Platelets 238 130 - 400 K/mcL LAB HEMETOLOGY METHOD 04/29/2024 10:[address] [facility] MPV 11.8(H) 7.0 - 11.0 FL LAB HEMETOLOGY METHOD 04/29/2024 10:[address] [facility] NRBC 0.0 <1.0 % LAB HEMETOLOGY METHOD 04/29/2024 10:[address] [facility] NRBC Absolute 0.00 <0.10 K/mcL LAB HEMETOLOGY METHOD 04/29/2024 10:30 AM EST [facility] Blood Venous blood specimen / Unknown Venipuncture / Unknown 04/29/2024 5:10 AM EST 04/29/2024 9:30 AM EST us Yared Weaver MD LAB BLOOD ORDERABLES Final Resul t [facility] [address] [place] [address], documented in this encounter Visit Diagnoses Diagnosis Atherosclerotic heart disease of [place] coronary artery without angina pectoris documented in this encounter Care Teams Child Welfare Consultant Relationship Specialty Start Date End Date Name, MD Bobby [address] [place], [place] PCP - General Internal Medicine 04/01/18 documented as of this encounter
== END 2024-08-11 09:59 | disposition home or self-care (01) ==
LOC: HO.HUSH 09:24
PROVIDERS: PCP Internal Medicine Geriatric Medicine; Visit Provider Nurse Practitioner Family
DX: Z13.9 Encounter for screening, unspecified (principal); N20.0 Calculus of kidney
CPT/HCPCS: 99213; G2211

== ENCOUNTER → 2024-08-11 09:23 | Outpatient (BNVA) | payer OTHER, SELFPAY | PROVIDERS: PCP Internal Medicine Geriatric Medicine; Visit Provider Nurse Practitioner Family | DX: N20.0 Calculus of kidney (principal) | CPT/HCPCS: 81003; 99212 ==

== ENCOUNTER 2024-08-16 07:34 | Outpatient (REF) | payer OTHER, SELFPAY ==
--- NOTE | ~2024-08-16 | CT_ITS ---
CLINICAL HISTORY: One month of persistent right middle lobe pneumonia on X-ray in smoker CT chest without contrast Comparison: CR/SR - XR CHEST 2V - 07/05/24 11:[address]/REG/OK/SR - CT CHEST WO IV CON - 06/09/23 07:33 EDT Findings: The heart size is normal. Moderate atherosclerosis calcification of the coronary arteries. The visualized thyroid and mediastinum are unremarkable. There is opacity of the right middle lobe. Stable 4.3 mm nodule of the right upper lobe series 6, image 71. There are additional micro-nodules. Left kidney stone. No acute fractures. IMPRESSION: Atelectasis/infection of the right middle lobe with interval progression from prior CT. Imaging follow-up is recommended to confirm resolution. Further evaluation by bronchoscopy may be of benefit. Stable pulmonary nodules. This document has been electronically signed by: Jose Ruiz MD on 08/16/2024 16:52:34
--- OUTSIDE RECORDS SUMMARY | 2024-08-16 07:39 | XMS_ITS | Clinical Summary ---
Author Organization [employer] Address [address] [place] [address] 7 [place] [address] Care Team Providers Care Cork Tipper Name Role Phone Name, Bobby GRADY Primary Care Provider [phone] Allergies Active Allergy Reactions Criticality Noted Date [...] Reaction(s): Not available Metoprolol Unknown 10/20/2022 Medications * This document contains information received from the source organization and may not represent a complete record from that organization. albuterol 108 (90 Base) MCG/ACT inhaler Inhale [...] 1 tablet by mouth at bed time. 018 Active TRUEplus Lancets 33G miscIndications: Type 2 diabetes mellitus without complications ([facility]) Check BG twice daily 100 each 11 [...] 15-30 MINUTES PRIOR TO QUTENZA ON 10/06/22 023 Active Blood Glucose Monitoring Suppl (ONE TOUCH ULTRA 2) w/Device kit USE TO TEST BLOOD SUGAR THREE TIMES DAILY 1 kit 023 Active OneTouch Delica Lancets 33G misc USE [...] BY MOUTH EVERY DAY 90 tablet 1 10/24/2 023 Active calcitriol (Rocaltrol) 0.25 MCG capsule Take 0.25 mcg by mouth in the morning. Active tamsulosin (Flomax) 0.4 MG 24 hr capsule TAKE 1 CAPSULE BY MOUTH ONCE DAILY AT BEDTIME FOR 14 DAYS Active BD Pen Needle Maria Guadalupe U/F 32G X 4 MM miscIndications: Type 2 diabetes mellitus with other specified complication, unspecified whether custodial insulin use ([facility]) USE DIRECTED FIVE TIMES DAILY 200 each [...] diabetes with complication ([facility]),COPD exacerbation ([facility]) Inject 1.5 mg under the skin 1 (one) time per week. 2 mL Active empagliflozin (Jardiance) 10 MG Take 1 tablet (10 mg) by mouth Once per day. 30 tablet 2024 Active insulin glargine (Lantus SoloStar) 100 UNIT/ML penIndications:A therosclerosis of coronary artery of [place] heart, unspecified vessel or lesion type, unspecified whether angina present INJECT 35 UNITS SUBCUTANEOUSLY TWICE DAILY IN THE MORNING AND IN THE EVENING 15 mL Active OneTouch Ultra Test test stripIndications :Type 2 diabetes mellitus without complications ([facility]) USE DIRECTED TO TEST BLOOD SUGAR THREE TIMES DAILY 50 strip 5 Active SM Calcium Citrate+Vit D3 Max tablet TAKE 1 TABLET BY MOUTH 2 TIMES DAILY 60 tablet 3 Active ipratropium-albu terol (Duo-Neb) 0.5-2.5 mg/3 mL nebulizer solutionIndicati ons:Chronic obstructive pulmonary disease, unspecified ([facility]) INHALE 1 AMPULE USING A NEBULIZER FOUR [...] needed for muscle spasms. 45 tablet Active docusate sodium (Colace) 100 MG capsuleIndicatio [...] neoplasm o f colon 09/30/2023 CAD in [place] artery 09/02/2023 Opioid dependence, daily use 07/27/2023 [...] acquired 02/02/2023 Subclinical hyperthyroidism 01/26/2020 06/19/2023 Encounters * This document contains information received from the source organization and may not represent a complete record from that organization. Date Type Department Care Team Description 08/08/2024 Refill [facility] [address] [place] [address] Name, MD Bobby Lumbar radiculopathy 08/01/2024 Orders Only [facility] External Provider, [facility] 07/27/2024 Refill [facility] [address] [place] [address] Name, MD Bobby Chronic low back pain with sciatica, sciatica laterality unspecified, unspecified back pain laterality 07/20/2024 Refill [facility] MEDIC[facility] [address] [place] [address] Sherly Pichardo FNP 07/14/2024 Telephone [facility]INE [address] [place] [address] Cem Berrios [place] september recalls 07/06/2024 11:00 AM EDT Office Visit [facility] [address] [place] [address] Bobby David MD Type 2 diabetes mellitus with other specified complication, unspecified whether terminal operator insulin use ([facility]) (Primary Dx); Chronic obstructive pulmonary disease, unspecified COPD type ([facility]); Abnormal chest x-ray; History of pneumonia 07/06/2024 Travel 07/05/2024 Telephone [facility] Information Management [address] [place] [address] Sherly Pichardo FNP MRI LUMBAR 07/05/2024 Telephone [facility] Information Management [address] [place] [address] Sherly Pichardo FNP MRI LUMBAR 07/04/2024 Telephone [facility] [address] [place] [address] Bobby David MD Durable Medical Equipment 07/03/2024 Refill [facility] [address] [place] [address] Bobby David MD Chronic obstructive pulmonary disease, unspecified COPD type ([facility]) 06/30/2024 Refill [facility] [address] [place] [address] Bobby David MD Chronic low back pain with sciatica, sciatica laterality unspecified, unspecified back pain laterality 06/29/2024 Telephone [facility] Information Management [address] [place] [address] Sherly Pichardo FNP MRI LUMBAR SPINE ORDER 06/24/2024 Telephone [facility] MED[facility]INE [address] [place] [address] Mildred Eason LPN Prior Authorization 06/23/2024 Telephone [facility] Information [facility] [address] [place] [address] Phalganesh Sherly, SECURITY ASSOCIATE MRI LUMBAR SPINE ORDER 06/22/2024 3:30 PM EDT Office Visit [address] [address] Basia Herndon MD Pneumonia of right middle lobe due to infectious organism (Primary Dx); Type 2 diabetes mellitus with other specified complication, unspecified whether custodial insulin use ([facility]); Cough, unspecified type; Drug-induced constipation; Dietary counseling; Exercise counseling; Overweight 06/22/2024 Travel 06/22/[address] [address] Bobby David MD Lumbar radiculopathy 06/20/2024 Orders Only [facility] [address] [place] [address] Phalganesh Sherly, SECURITY ASSOCIATE 06/20/2024 Telephone [facility] [address] [place] [address] Phalganesh Sherly, SECURITY ASSOCIATE Results (Lumbar x-ray) 06/17/2024 Orders Only [facility] [address] [place] [address] Phalganesh Sherly, SECURITY ASSOCIATE Lumbar radiculopathy (Primary Dx) 06/16/2024 Telephone [facility] [address] [place] [address] Phalganesh Sherly, SECURITY ASSOCIATE TC: Visit Follow Up Plan 06/15/2024 9:45 AM EDT Office Visit [address] [address] Phalen Sherly, SECURITY ASSOCIATE Lumbar post-laminectomy syndrome (Primary Dx); Chronic obstructive pulmonary disease, unspecified COPD type ([facility]); Lumbar spondylosis; Urinary incontinence, unspecified type 06/15/[address] [address] Bobby David MD Durable Medical Equipment 06/15/[address] [phone] Skye Melton RN WIRELESS OPERATOR Agreement and BPI Forms 06/15/2024 Travel 06/14/[address] [address] Skye Melton, HODA Reschedule WIRELESS OPERATOR Renewal appt 06/17/24 06/13/[address] [address] Name, MD Bobby ER Follow-up 06/12/2024 Orders Only [facility] External Provider, [facility] 06/06/2024 Refill [facility] MED[facility]INE [address] [place] [address] NameBobby MD 05/31/2024 1:15 PM EST Office Visit [address] [address] NameBobby MD COPD (chronic obstructive pulmonary disease) with acute bronchitis (CMS/HCC) (CMS/HCC) (Primary Dx); Type 2 diabetes with complication (CMS/HCC); Rash 05/31/2024 Refill [facility] [address] [place], [place] [phone] Name, MD Bobyb 05/28/2024 Refill [facility] [address] [place], [place] [phone] Bobby David MD 05/23/2024 Refill [facility]INE [address] [place] [address] Name, MD Bobby Chronic low back pain with sciatica, sciatica laterality unspecified, unspecified back pain laterality from Last 3 Months Immunizations Immunization Administration [...] 09/01/2024 11:30 AM EDT Telemedicine [facility] [address] [place] [address] Name, [place] [address] 09/02/2024 1:00 PM EDT Telemedicine [address] [address] Skye Melton RN 11/02/2024 9:30 AM EDT Office Visit [facility]INE [address] [place] [address] Name, MD Bobby [address] [place] [address] Health Maintenance Due Date Last Done Comments [...] 08/28/2021, 10/30/2020 Lipid Panel 12/28/2024 12/29/2023, 08/28/2021 Disability Screening 07/06/2025 07/06/2024 Tobacco Screening 07/06/2025 07/06/2024 Colonoscopy 07/16/2025 07/16/2022 [...] Author Smoking cessation General No Archana, Inga, Lucio Procedures Procedure Name Priority Date/Time Associated Diagnosis Comments MR LUMBAR SPINE W AND WO CONTRAST Routine 08/03/2024 8:46 AM EDT Lumbar radiculopathy Lumbar post-laminectomy syndrome US RENAL BI Routine 08/01/2024 4:08 PM EDT POCT GLUCOSE Routine 07/06/2024 11:06 AM EDT Type 2 diabetes mellitus with other specified complication, unspecified whether custodial insulin use ([facility]) XR CHEST 2 VIEWS Routine 07/06/2024 9:58 [...] mellitus with other specified complication, unspecified whether custodial insulin use (CMS/HCC) POCT GLUCOSE Routine 06/22/2024 3:57 PM EDT Type 2 diabetes mellitus with other specified complication, unspecified whether custodial insulin use ([facility]) XR CHEST 2 VIEWS Routine 06/20/2024 9:48 [...] complication (CMS/HCC) Atherosclerosis of coronary artery of [place] heart, unspecified vessel or lesion type, unspecified whether angina present Pain of toe of left foot LIPID PANEL, STANDARD Routine 12/29/2023 11:17 AM EDT Type 2 diabetes with complication (CMS/HCC) Atherosclerosis of coronary artery of [place] heart, unspecified vessel or lesion type, unspecified [...] EDT Narrative 08/03/2024 8:48 AM EDT ? [facility] ?[address] ?[place] [address] ? Magnetic Resonance Report ? Signed ? Patient: Marita Zapata ?MR#: MM ?? [id number] ? : 1960 ?Acct:[id number] ? Age/Sex: 63 / F ?ADM Date: 08/02/24 ? Loc: HO.MRI ? Attending Dr: Sherly CONNOR ? Ordering Physician: Sherly Pichardo ?? Date of Service: 08/02/24 ?? Procedure(s): MR lumbar spine wo/w con ?? Accession Number(s): [id number] ? cc: Bobby David MD; Sherly Pichardo ? CLINICAL HISTORY: H ??LAMINECTOMY W WOSENING CHRONIC LBP ? MR lumbar spine with and without gadolinium ? Comparison: CR - XR LUMBAR SPINE 2-3V - 06/12/24 17:26 EDT ?? MR/NV - MR LUMBAR SPINE WO CON [...] DD/ 0846 ? TD/TT: 08/03/24 0846 ? Osteopathic Neurologist: ? Procedure Note Rogelio, Image - 08/03/[address] [address] Magnetic Resonance Report Signed Patient: Marita Zapata [facility]#: MM [id number] : 1960Acct:[id number] Age/Sex: 63 / FADM Date: 08/02/24 Loc: HO.MRI Attending Dr: Sherly CONNOR Ordering Physician: Sherly Pichardo Date of Service: 08/02/24 Procedure(s): MR lumbar spine wo/w con Accession Number(s): [id number] cc: Name,Bobby GRADY; Sherly Pichardo CLINICAL HISTORY: H LAMINECTOMY W WOSENING CHRONIC LBP MR lumbar spine with and without gadolinium Comparison: CR - XR LUMBAR SPINE 2-3V - 06/12/24 17:26 EDT MR/NV - MR LUMBAR SPINE WO CON [...] signed by Geoff Brown MD in OV> 08/03/2448 DD/ 5 TD/TT: 08/03/24845 Osteopathic Neurologist: us Sherly Pichardo SECURITY ASSOCIATE IMG MRI PROCEDURES Final Resul t * US RENAL BI (08/01/2024 4:08 PM EDT) Anatomical Region Laterality Modality Abdomen Ultrasound 08/01/2024 4:08 PM EDT Narrative 08/01/2024 4:09 PM EDT ? [facility] ?[address] ?[place] [address] ? Ultrasound Report ? Signed ? Patient: Marita Zapata ?MR#: MM ?? [id number] ? : 1960 ?Acct:[id number] ? Age/Sex: 63 / F ?ADM Date: 08/01/24 ? Loc: HO.US ? Attending Dr: Blayne Srinivasan MD ? Ordering Physician: Blayne Srinivasan MD ?? Date of Service: 08/01/24 ?? Procedure(s): US renal BI ?? Accession Number(s): [id number] ? cc: Blayne Srinivasan MD; Frankie,Bobby GRADY ? CLINICAL HISTORY: N20.0 - Calculus [...] DD/ 1608 ? TD/TT: 08/01/24 1608 ? Osteopathic Neurologist: ? Procedure Note Donotuseinterpreter, Image - 08/01/2024 [place] [address] Ultrasound Report Signed Patient: Marita Zapata MMR#: [id number] : 1960Acct:[id number] Age/Sex: 63 / FADM Date: 08/01/24 Loc: HO.US Attending Dr: Blayne Srinivasan MD Ordering Physician: Blayne Srinivasan MD Date of Service: 08/01/24 Procedure(s): US renal BI Accession Number(s): [id number] cc: Blayne Srinivasan MD; Name,Bobby GRADY CLINICAL [...] 08/01/24 1609 DD/ 1608 TD/TT: 08/01/24 1608 Osteopathic Neurologist: [facility] External Provider IMG US PROCEDURES Final Result * POCT Glucose (07/06/2024 11:06 AM EDT) Only the most recent of3 resultswithin the time period is included. Glucose Blood, POC 140 60 - 200 mg/dL QC Media Lot # [id number] Lot# Expiration Date 82 Blood Capillary blood specimen / Unknown 07/06/2024 11:06 AM EDT Bobby David MD POINT OF CARE TEST ENTER/EDIT OR DERABLES Final Result * XR Chest 2 Views (07/06/2024 9:58 AM EDT) Only the most recent of2 resultswithin the time period is included. Anatomical Region Laterality Modality Chest Radiographic Ludivina ging 07/06/2024 9:58 AM EDT Narrative 07/06/2024 9:59 AM EDT ? [facility] ?[address] ?[place] [address] ?XRay Report ? Signed ? Patient: Marita Zapata ?MR#: MM ?? [id number] ? : 1960 ?Acct:[id number] ? Age/Sex: 63 / F ?ADM Date: 04/08/25 ? Loc: HO.XRAY ? Attending Dr: Basia Herndon MD ? Ordering Physician: Basia Herndon ?? Date of Service: 07/05/24 ?? Procedure(s): XR chest 2V ?? Accession Number(s): [id number] ? cc: Basia Herndon; Name,Bobby GRADY ? [...] ? DD/ 7 ? TD/TT: 07/06/24957 ? Osteopathic Neurologist: ? Procedure Note Donlarry, Image - 07/06/2024 [place] [address] XRay Report Signed Patient: Marita Zapata MMR#: MM [id number] : 1960Acct:[id number] Age/Sex: 63 / FADM Date: 07/05/24 Loc: ANGELA Attending Dr: Basia Herndon MD Ordering Physician: Basia Herndon Date of Service: 07/05/24 Procedure(s): XR chest 2V Accession Number(s): [id number] cc: Basia Herndon; Name,Bobby GRADY CLINICAL HISTORY: [...] MD in OV> 07/06/24958 DD/ 7 TD/TT: 07/06/2458 Osteopathic Neurologist: Basia Herndon MD IMG XR PROCEDURES Edited Resul t - Final * POCT Rapid Influenza B RYDER ID NOW (06/22/2024 4:41 PM EDT) Influenza B Negative Negative, Indeterminate [facility] QC Media Lot # [id number] [facility] Lot# Expiration Date [facility] Swab 06/22/2024 4:41 PM EDT Basia Herndon MD POINT OF CARE TEST ENTER/EDIT ORDERABLES Final Result Performing Organization Address [facility]/ZIP Co de Phone Number [facility] [address] [place] [phone] * POCT Rapid Influenza A RYDER ID NOW (06/22/2024 4:41 PM EDT) Influenza A Negative Negative, Indeterminate [facility] QC Media Lot # [id number] [facility] Lot# Expiration Date [facility] Swab 06/22/2024 4:41 PM EDT Basia Herndon MD POINT OF CARE TEST ENTER/EDIT ORDERABLES Final Result Performing Organization Address City/[facility]/ZIP Co de Phone Number [facility] [address] [place] [phone] * POCT Rapid Covid-19 BinaxNOW (06/22/2024 4:23 PM EDT) Rapid COVID Ag Negative QC Media Lot # [id number] Lot# Expiration Date 026 Swab 06/22/2024 4:23 PM EDT Basia Herndon MD POINT OF CARE TEST ENTER/EDIT ORDERABLES Final Result * (ABNORMAL) POCT HGB A1C (06/22/2024 3:58 PM EDT) Only the most recent of2 resultswithin the time period is included. Hemoglobin A1C 8.4(A) 4.0 - 6.0 % QC Media Lot # [id number] Lot# Expiration Date ,026 Blood 06/22/2024 3:58 PM EDT Basia Herndon [...] Media Lot # [id number] Lot# Expiration Date ,025 Urine 06/15/2024 11:3 3 AM EDT Sherly CONNOR POINT OF CARE TEST ENTER/EDIT ORDERABLES Final Result * XR Lumbar Spine 2-3 Views (06/12/2024 6:34 PM EDT) Anatomical Region Laterality Modality Spine, L-spine Radiographic Ludivina ging 06/12/2024 6:34 PM EDT Narrative 06/12/2024 6:36 PM EDT ? [facility] ?[address] ?[place] [address] ?XRay Report ? Signed ? Patient: Ashley Melinda,Marita M ?MR#: MM ?? [id number] ? : 1960 ?Acct:[id number] ? Age/Sex: 63 / F ?ADM Date: 03/16/25 ? Loc: HO.ED ? Attending Dr: ? Ordering Physician: Catalina Kelly ?? Date of Service: 06/12/24 ?? Procedure(s): XR lumbar spine 2-3V ?? Accession Number(s): [id number] ? cc: Name,Bobby GRADY; Catalina Kelly ? [...] DD/ 1834 ? TD/TT: 06/12/24 1834 ? Osteopathic Neurologist: ? Procedure Note Elie Mercado - 06/12/2024 [place] [address] XRay Report Signed Patient: Marita Zapata [facility]#: MM [id number] : 1960Acct:[id number] Age/Sex: 63 / FADM Date: 06/12/24 Loc: HO.ED Attending Dr: Ordering Physician: Catalina Kelly Date of Service: 06/12/24 Procedure(s): XR lumbar spine 2-3V Accession Number(s): [id number] cc: Bobby David MD; Catalina Kelly CLINICAL HISTORY: severe lower back [...] in OV> 06/12/241834 DD/ 33 TD/TT: 06/12/241833 Osteopathic Neurologist: [facility] External Provider IMG XR PROCEDURES Final Result * (ABNORMAL) Albumin, Random Urine W/Creatinine (12/29/2023 11:20 AM EDT) Creatinine, Urine 157.96 mg/dL [facility] Microalbumin Urine 47.0 mg/L [facility] Microalbum Creatinine Ratio Ur 29.7(H) <30 ug/mg cr [facility] Comment:Albumin/Creatinine R atio Reference Ranges: Normal: < 30 ug/mg creatinine Microalbuminuria: 30 - 300 ug/mg creatinineClinical Albuminuria: > 300 ug/mg creatinine Urine (Urine, Random) 12/29/2023 11:20 AM EDT 12/29/2023 1:01 PM EDT Bobby David MD LAB URINE ORDERABLES Final Resul t [facility] [address] [place] [phone] * (ABNORMAL) Lipid Panel, Standard (12/29/2023 11:17 AM EDT) Triglycerides 172(H) <150 mg/dL [facility] Comment:Desirable Triglyceri de: less than 150 mg/dLBorderline High Triglyceride 150-199 mg/dLHigh Triglyceride: 200-499 mg/dLVery High Triglyceride: greater than or equal to 5OO mg/dL Cholesterol 140 <200 mg/dL [facility] Comment:Desirable Cholestero l: less than 200 mg/dLBorderline High Cholesterol: 200-239 mg/dLHigh Cholesterol: greater than 239 mg/dL LDL Cholesterol Calculated 61 <100 mg/dL [facility] Comment:Desirable LDL: less than 100 mg/dLNear Optimal/Above Optimal LDL: 110- 129 mg/dLBorderline High LDL: 130-159 mg/dLHigh LDL: 160-189 mg/dLVery High LDL: greater than or equal to 190 mg/dL HDL Cholesterol 45 >40 mg/dL [facility] Comment:Desirable HDL: great er than 40 mg/dL Note: This HDL assay may give artificially low results in patients with liver disease. Blood Venous blood specimen / Unknown 12/29/2023 11:17 AM EDT 12/29/2023 1:03 PM EDT us Bobby David MD LAB BLOOD ORDERABLES Final Resul t [facility] [address] [place] [phone] * (ABNORMAL) Hm Colonoscopy (07/16/2022) Colonoscopy Abnormal( A) Normal Comment:repeat in 3-5 yrs us Historical Provider [facility] MAINTENANCE Final Result * Mammography Report 1 [...] MD IMG BI PROCEDURES Final Result * Hm Pap Smear (02/27/2021 10:30 AM EST) Pap smear Perfomed us Historical Provider HEALTH MAINTENANCE Final Result [...] been evaluated with computer assisted technology. [facility] Scout: SEE COMMENT [facility] Comment: CULP, CT(ASCP) CT screening location: [address] ??[id number] HPV nRNA E6/E7 Not Detected Not Detected [facility] Comment: Methodology: Surgery Technician-Mediated Amplification This assay detects E6/E7 viral messenger RNA (mRNA) from 14 high-risk HPV types (16,18,31,33,35,39,45,51,52,56,58,59,66,68). ? The analytical performance characteristics of this assay have been determined by [employer]. The modifications have not been cleared or approved by the FDA. This assay has been validated pursuant to the CLIA regulations and is used for clinical purposes. ?? For additional information, please refer to http://[email or web address].[email or web address] Hilburn/faq/JZD456g9 (This link if provided for information/ educational purposes only.) Interpretation/Re sult: Negative for intraepithelial lesion or malignancy. [facility] LMP: NONE GIVEN [facility] Prev. BX: HX ABNL [facility] Prev. PAP: 02/2018 [facility] SOURCE: None given [facility] Statement Of Adequacy: SEE COMMENT [facility] Comment: Satisfactory for evaluation. Endocervical/transformation zone component present. 02/27/2021 10:2 4 AM EST Monisha Linton CNM LAB PATHOLOGY ORDERABLES Final Result [facility] [address] [place] [address], from Last 3 Months or Most Recently Relevant to Health Maintenance Insurance Care Teams Cork Tipper Relationship Specialty Start Date End Date Name, MD Bobby [address] [place] [address] PCP - General Family Medicine 06/01/15 Eloina 05/13/24
--- OUTSIDE RECORDS SUMMARY | 2024-08-16 07:39 | XMS_ITS | Encounter Summary ---
Author Organization [employer] Address [address] [place] [address] Care Team Providers Care Shank Faker Name Role Phone Name, Bobby GRADY Primary Care Provider Inga Magaña PharmD Unavailable [phone] Reason for Visit * Reason Onset Date Comments Med Refill 01/20/2023 Encounter Details Date Type Department Care Team ([facility] st Contact Info) Description 01/20/2023 Telephone [facility] [address] [place] [address] Name, MD Bobby [address] [place] [address] Med Refill Social History Tobacco Use Types [...] Info) Description 09/01/2024 11:30 AM EDT Telemedicine [facility] [address] [place] [phone] Bobby David MD [address] [place] [phone] 09/02/2024 1:00 PM EDT Telemedicine [facility] [address] [place] [phone] Skye Melton RN 11/02/2024 9:30 AM EDT Office Visit [facility] [address] [place] [phone] Bobby David MD [address] [place] [phone] documented as of this encounter Goals Goal Patient Goal Type Associated Problems Recent Progress Patient-Stated? Author Smoking cessation General No Inga Magaña, Lucio documented as of this encounter Visit Diagnoses Not on filedocumented in this encounter Additional Health Concerns Assessment Noted Time PHQ-9 Depression Total Score: 0 03/11/20 22 11:47 AM EST documented as of this encounter Care Teams Shank Faker Relationship Specialty Start Date End Date Name, MD Bobby [address] [place] [address] PCP - General Family Medicine 06/01/15 Inga Magaña, MiltonD [address] [place] [address] Pharmacist Internal Medicine 01/07/23 09/29/23 Eloina 05/13/24 documented as of this encounter
--- OUTSIDE RECORDS SUMMARY | 2024-08-16 07:39 | XMS_ITS | Encounter Summary ---
Author Organization [employer] Address [address] [place] [address] [address] [place] [address] Care Team Providers Care Building Construction Engineer Name Role Phone Name, Bobby GRADY Primary Care Provider Inga Magaña PharmD Unavailable Encounter Details Date Type Department Care Team (Late st Contact Info) Description 03/05/2022 Telephone [facility] [address] [place] [address] Monisha Linton CNM [address] [place] [phone] Social History Tobacco Use Types Packs/Day Years [...] Info) Description 09/01/2024 11:30 AM EDT Telemedicine [facility] [address] [place] [address] Name, MD Bobby [address] [place] [address] 09/02/2024 1:00 PM EDT Telemedicine [facility] [address] [place] [address] 8[address] Skye Melton RN 11/02/2024 9:30 AM EDT Office Visit [facility] [address] [place] [address] Name, MD Bobby [address] [place] [address] documented as of this encounter Visit Diagnoses Not on filedocumented in this encounter Care Teams Building Construction Engineer Relationship Specialty Start Date End Date Name, MD Bobby [address] [place] [address] PCP - General Family Medicine 06/01/15 Inga Magaña PharmD [address] [place] [address] Pharmacist Internal Medicine 01/07/23 09/29/23 [place] 05/13/24 documented as of this encounter
--- OUTSIDE RECORDS SUMMARY | 2024-08-16 07:39 | XMS_ITS | Encounter Summary ---
Author Organization [employer] Address [address] [place] [address] 7t [place] [address] Care Team Providers Care Media Marketing Specialist Name Role Phone Name, Bobby GRADY Primary Care Provider [phone] Inga Magaña PharmD Unavailable Reason for Visit * Reason Comments Med Refill Encounter Details Date Type Department Care Team (Late st Contact Info) Description 10/03/2022 Refill [facility] [address] [place] [address] Name, MD Bobby [address] [place] [address] Lumbar radiculopathy Social History Tobacco Use Types [...] Description 09/01/2024 11:30 AM EDT Telemedicine [address] [address] Name, MD Bobby [address] [place] [address] 09/02/2024 1:00 PM EDT Telemedicine [address] [address] Skye Melton, HODA 11/02/2024 9:30 AM EDT Office Visit [address] [address] Name, MD Bobby [address] [place] [address] documented as of this encounter Visit Diagnoses Diagnosis Lumbar radiculopathy Thoracic or lumbosacral neuritis or radiculitis, unspecified documented in this encounter Additional Health Concerns Assessment Noted Time PHQ-9 Depression Total Score: 0 03/11/20 11:47 AM EST documented as of this encounter Care Teams Media Marketing Specialist Relationship Specialty Start Date End Date Name, MD Bobby [address] [place] [address] PCP - General Family Medicine 06/01/15 Inga Magaña PharmD [address] [place] [address] 33268 Pharmacist Internal Medicine 01/07/23 09/29/23 [place] 05/13/24 documented as of this encounter
--- OUTSIDE RECORDS SUMMARY | 2024-08-16 07:39 | XMS_ITS | Encounter Summary ---
Author Organization [employer] Address [address] [place] [address] 7t [place] [address] Care Team Providers Care Grease Buffer Name Role Phone Name, Bobby GRADY Primary Care Provider [phone] Inga Magaña PharmD Unavailable [phone] Reason for Visit * Reason Onset Date Comments Prior Authorization 01/21/2023 Huma[employer] KWIK PEN 100 UNIT/ML injection Encounter Details Date Type Department Care Team ([facility] st Contact Info) Description 01/21/2023 Telephone [facility] [address] [place], [place] [phone] Name, MD Bobby [address] [place] [address] Prior Authorization (Huma[employer] KWIKPEN 100 UNIT/ML injection) [...] Info) Description 09/01/2024 11:30 AM EDT Telemedicine [facility] [address] [place] [address] Name, MD Bobby [address] [place] [address] 09/02/2024 1:00 PM EDT Telemedicine [facility] [address] [place] [address] Skye Melton RN 11/02/2024 9:30 AM EDT Office Visit [facility] [address] [place] [address] Name, MD Bobby [address] [place] [address] documented as of this encounter Goals Goal Patient Goal Type Associated Problems Recent Progress Patient-Stated? Author Smoking cessation General No Inga Magaña, PharmD documented as of this encounter Visit Diagnoses Not on filedocumented in this encounter Additional Health Concerns Assessment Noted Time PHQ-9 Depression Total Score: 0 03/11/20 22 11:47 AM EST documented as of this encounter Care Teams Grease Buffer Relationship Specialty Start Date End Date Name, MD Bobby [address] [place] [address] PCP - General Family Medicine 06/01/15 Inga Magaña, PharmD [address] [place] [address] Pharmacist Internal Medicine 01/07/23 09/29/23 Elo[place] 05/13/24 documented as of this encounter
--- OUTSIDE RECORDS SUMMARY | 2024-08-16 07:39 | XMS_ITS | Encounter Summary ---
Author Organization [employer] Address [address] [place] [address] 7 [place] [address] Care Team Providers Care Optics Engineer Name Role Phone Name, Bobby GRADY Primary Care Provider Reason for Visit * Reason Onset Date Comments Hospital Follow-up 05/17/2024 Encounter Details Date Type Department Care Team ([facility] st Contact Info) Description 05/17/2024 Telephone [facility] [address] [place] [address] Name, MD Bobby [address] [place] [address] Hospital Follow-up Social History Tobacco Use Types [...] from pt requesting a HDF appt. Hospital: [facility] transported Date of admission: 04/06/2024 Discharge date: 05/12/2024 Diagnosed: RSV , Influenza A+B , COPD *Send message to [facility] Clinical Care Coordinators documented in this encounter Plan of Treatment Upcoming Encounters Date Type Department Care Team (Late st Contact Info) Description 09/01/2024 11:30 AM EDT Telemedicine [facility] [address] [place] [address] Name, MD Bobby [address] [place] [address] 09/02/2024 1:00 PM EDT Telemedicine [facility] [address] [place] [address] Skye Melton, HODA 11/02/2024 9:30 AM EDT Office Visit [facility] [address] [place] [address] Name, MD Bobby [address] [place] [address] documented as of this encounter Goals Goal Patient Goal Type Associated Problems Recent Progress Patient-Stated? Author Smoking cessation General Inga Radford, PharmD documented as of this encounter Visit Diagnoses Not on filedocumented in this encounter Additional Health Concerns Assessment Noted Time PHQ-9 Depression Total Score: 0 06/19/19 24 10:09 AM EDT documented as of this encounter Care Teams Optics Engineer Relationship Specialty Start Date End Date Name, MD Bobby [address] [place] [address] PCP - General Family Medicine 06/01/15 [place] 05/13/24 documented as of this encounter
--- OUTSIDE RECORDS SUMMARY | 2024-08-16 07:39 | XMS_ITS | Encounter Summary ---
Author Organization [employer] Address [address] [place] [address] [place] [address] Care Team Providers Care Teaching Associate Name Role Phone Bobby David MD Primary Care Provider [phone] Inga Magaña PharmD Unavailable Reason for Visit * Reason Onset Date Comments Referral 04/23/2022 Encounter Details Date Type Department Care Team (Late st Contact Info) Description 04/23/2022 Telephone [facility] [address] [place] [address] NameBobby MD [address] [place] [address] Referral Social History Tobacco Use Types Packs/Day [...] [facility] [place] contact pt at [phone] documented in this encounter Plan of Treatment Upcoming Encounters Date Type Department Care Team (Late st Contact Info) Description 09/01/2024 11:30 AM EDT Telemedicine [facility] [address] [place] [phone] Bobby David MD [address] [place] [address] 09/02/2024 1:00 PM EDT Telemedicine [address] [address] Skye Melton RN 11/02/2024 9:30 AM EDT Office Visit [facility] [address] [place] [address] Bobby David MD [address] [place] [address] documented as of this encounter Visit Diagnoses Diagnosis History of colon polyps- Primary Family history of colon cancer Family history of malignant neoplasm of gastrointestinal tract documented in this encounter Additional Health Concerns Assessment Noted Time PHQ-9 Depression Total Score: 0 03/11/20 11:47 AM EST documented as of this encounter Care Teams Teaching Associate Relationship Specialty Start Date End Date Bobby David MD [address] [place] [address] [phone] PCP - General Family Medicine 06/01/15 Inga Magaña, MiltonD [address] [place] [address] [place] [phone] Pharmacist Internal Medicine 01/07/23 09/29/23 Elo[place] 05/13/24 documented as of this encounter
--- OUTSIDE RECORDS SUMMARY | 2024-08-16 07:39 | XMS_ITS | Encounter Summary ---
Author Organization [employer] Address [address] [place] [address] Care Team Providers Care Joiners Supervisor Name Role Phone Name, Bobby GRADY Primary Care Provider [phone] Encounter Details Date Type Department Care Team (Late st Contact Info) Description 05/08/2024 Lab Requisition [facility] - Main Lab [address] [place] [address] Yared Weaver MD [address] [place] [address], [phone] Hypothyroidism, unspecified Social History Tobacco Use [...] 1:03 PM EST [facility] Blood Venous blood specimen / Unknown Venipuncture / Unknown 05/09/2024 5:33 AM EST 05/09/2024 11:27 AM EST us Yared Weaver MD LAB BLOOD ORDERABLES Final Resul t [facility] [address] [place] [address], documented in this encounter Visit Diagnoses Diagnosis Hypothyroidism, unspecified documented in this encounter Care Teams Joiners Supervisor Relationship Specialty Start Date End Date Name, MD Bobby [address] [place], [place] PCP - General Internal Medicine 04/01/18 documented as of this encounter
--- OUTSIDE RECORDS SUMMARY | 2024-08-16 07:39 | XMS_ITS | Encounter Summary ---
Author Organization [employer] Address [address] [facility] 7t [place] [address] Care Team Providers Care Stamping Operator Name Role Phone Name, Bobby GRADY Primary Care Provider [phone] Inga Magaña PharmD Unavailable [phone] Reason for Visit * Reason Comments Med Refill Encounter Details Date Type Department Care Team ([facility] st Contact Info) Description 04/28/2023 Refill [facility] 230 [place] [address] Name, MD Bobby 230 [place] [address] Social History Tobacco Use Types Packs/Day Years [...] Info) Description 09/01/2024 11:30 AM EDT Telemedicine [address] [address] NameBobby MD [address] [place] [address] 09/02/2024 1:00 PM EDT Telemedicine [address] [address] Skye Melton RN 11/02/2024 9:30 AM EDT Office Visit [address] [address] NameBobby MD [address] [place] [address] documented as of this encounter Goals Goal Patient Goal Type Associated Problems Recent Progress Patient-Stated? Author Smoking cessation General No Inga Magaña, PharmD documented as of this encounter Visit Diagnoses Not on filedocumented in this encounter Additional Health Concerns Assessment Noted Time PHQ-9 Depression Total Score: 0 03/11/20 22 11:47 AM EST documented as of this encounter Care Teams Stamping Operator Relationship Specialty Start Date End Date Bobby David MD [address] [place] [address] PCP - General Family Medicine 06/01/15 Inga Magaña, PharmD [address] [place] [address] Pharmacist Internal Medicine 01/07/23 09/29/23 [place] 05/13/24 documented as of this encounter
--- OUTSIDE RECORDS SUMMARY | 2024-08-16 07:39 | XMS_ITS | Encounter Summary ---
Author Organization [employer] Address [address] [place] [address] 7[place] [address] Care Team Providers Care Arborer Name Role Phone Name, Bobby GRADY Primary Care Provider [phone] Inga Magaña PharmD Unavailable [phone] Reason for Visit * Reason Comments Med Refill Encounter Details Date Type Department Care Team ([facility] st Contact Info) Description 11/18/[address] [facility] [address] [place] [address] Sherly Pichardo, GEETA [address] [place] [address] Type 2 diabetes mellitus without complications (CMS/[facility]) Social History Tobacco Use Types Packs/Day [...] Department Care Team (Late Contact Info) Description 09/01/2024 11:[address] [facility] [address] [place] [address] Name, MD [facility] [place] [address] 09/02/2024 1:00 PM EDT Telemedicine [address] [address] Skye Melton, RN 11/02/2024 9:30 AM EDT Office Visit [address] [address] Name, MD Bobby [address] [place] [address] documented as of this encounter Visit Diagnoses Diagnosis Type 2 diabetes mellitus without complications (CMS/HCC) documented in this encounter Additional Health Concerns Assessment Noted Time PHQ-9 Depression Total Score: 0 03/11/20 11:47 AM EST documented as of this encounter Care Teams Arborer Relationship Specialty Start Date End Date Name, MD Bobby [address] [place] [address] PCP - General Family Medicine 06/01/15 Inga Magaña PharmD [address] [place] [address] Pharmacist Internal Medicine 01/07/23 09/29/23 [place] 05/13/24 documented as of this encounter
--- OUTSIDE RECORDS SUMMARY | 2024-08-16 07:39 | XMS_ITS | Encounter Summary ---
Author Organization [employer] Address [address] [place] [address] 7[place] [address] Care Team Providers Care Box Folding Machine Operator Name Role Phone Name, Bobby GRADY Primary Care Provider Inga Magaña PharmD Unavailable Encounter Details Date Type Department Care Team (Late Contact Info) Description 09/01/[address] [facility] [address] [place] [address] NameBobby MD [address] [place] [address] Social History Tobacco Use Types Packs/Day Years [...] Info) Description 09/01/2024 11:30 AM EDT Telemedicine [facility] [address] [place] [address] [phone] Bobby David MD [address] [place] [address] 09/02/2024 1:00 PM EDT Telemedicine [facility] [address] [place] [address] Skye Melton RN 11/02/2024 9:30 AM EDT Office Visit [address] [address] Name, MD Bobby [address] [place] [address] documented as of this encounter Visit Diagnoses Not on filedocumented in this encounter Additional Health Concerns Assessment Noted Time PHQ-9 Depression Total Score: 0 03/11/20 22 11:47 AM EST documented as of this encounter Care Teams Box Folding Machine Operator Relationship Specialty Start Date End Date Name, MD Bobby [address] [place] [address] PCP - General Family Medicine 06/01/15 Inga Magaña, MiltonD [address] [place] [address] Pharmacist Internal Medicine 01/07/23 09/29/23 [place] 05/13/24 documented as of this encounter
--- OUTSIDE RECORDS SUMMARY | 2024-08-16 07:39 | XMS_ITS | Clinical Summary ---
Author Organization [address] Address [address] [place] [address] Phone Care Team Providers Care Attic Blower Name Role Phone Name, Bobby GRADY Primary Care Provider [phone] Surgical History Surgery Date Site/Laterality Comments CHOLECYSTECTOMY PROCEDURE: [place] CHOLECYSTECTOMY OTHER SURGICAL HISTORY PROCEDURE: HISTORY OTHER; COMMENT: Cardiac stent KIDNEY STONE SURGERY PROCEDURE: TN NEPHROLITHOTOMY REMOVAL CALCULUS BREAST LUMPECTOMY Right PROCEDURE: HISTORICAL BREAST LUMPECTOMY; COMMENT: benign Medical History Medical History Date Comments Coronary atherosclerosis of unspecified type of vessel, sycuan or graft 07/07/2011 DX:Coronary atherosclerosis of unspecified type of vessel, sycuan or graft Hypertension 07/07/2011 DX:Hypertension Historical Medical DX 07/07/2011 DX:Hyperli pidemia LDL goal < 70 DM2 (diabetes mellitus, type 2) ([facility] V24, [facility]/H[facility] V28) 07/07/2011 DX:DM2 (diabetes mellitus, type 2) ([facility]) Tobacco abuse 07/07/2011 DX:Tobacco abuse Allergy-induced asthma 07/07/2011 DX:Allerg y-induced asthma Family History Medical History Relation Name Comments Breast cancer Aunt 1 maternal aunt, at 60 Breast cancer Aunt 2 paternal aunt, at 60 Other: urogynaecologist ca Aunt 2 Colon cancer Brother at [...] of sycuan coronary artery without angina pectoris from Last 3 Months or Most Recently Relevant to Health Maintenance Results * (ABNORMAL) Basic metabolic panel (05/12/2024 8:21 AM EST) Sodium 143 133 - 145 mmol/L LAB CHEMISTRY METHOD 05/12/2024 11:22 AM EST [facility] Potassium 3.6 3.5 - 5.5 mmol/L LAB CHEMISTRY METHOD 05/12/2024 11:22 AM EST [facility] Chloride 109 96 - 110 mmol/L LAB CHEMISTRY METHOD 05/12/2024 11:22 AM EST [facility] CO2 31 21 - 32 mmol/L LAB CHEMISTRY METHOD 05/12/2024 11:22 AM EST [facility] Anion Gap 3 3 - 11 LAB CHEMISTRY METHOD 05/12/2024 11:22 AM EST [facility] Glucose 95 70 - 100 mg/dL LAB CHEMISTRY METHOD 05/12/2024 11:22 AM EST [facility] BUN 21 5 - 25 mg/dL LAB CHEMISTRY METHOD 05/12/2024 11:[address] [facility] Creatinine 0.80 0.50 - 1.10 mg/dL LAB CHEMISTRY METHOD 05/12/2024 11:22 AM EST [facility] eGFR 82 >=60 mL/min/1. 73m2 LAB CHEMISTRY METHOD 05/12/2024 11:22 AM EST [facility] Comment:Calculation based on the??Chronic Kidney Disease Epidemiology Collaboration (CKD-EPI) equation refit??without adjustment for race. BUN/Creatinine Ratio 26.3 LAB CHEMISTRY METHOD 05/12/2024 11:[address] [facility] Calcium 8.0(L) 8.5 - 10.5 mg/dL LAB CHEMISTRY METHOD 05/12/2024 11:22 AM EST [facility] Blood Venous blood specimen / Unknown Venipuncture / Unknown 05/12/2024 8:21 AM EST 05/12/2024 10:56 AM EST us Yared Weaver MD LAB BLOOD ORDERABLES Final Resul t [facility] [address] [place] [address], from Last 3 Months or Most Recently Relevant to Health Maintenance Insurance [facility] Member Subscriber Plan / Payer (Ef fective 2022-Present) Name:Marita Lawrence Relation to Subscriber:Self Name:Marita Lawrence Payer ID:[id number] Group ID:[id number] Type:Not on file Address: [address] [place] [address] Care Teams Attic Blower Relationship Specialty Start Date End Date Name, MD Bobby [address] [place], [place] PCP - General Internal Medicine 04/01/18
--- OUTSIDE RECORDS SUMMARY | 2024-08-16 07:39 | XMS_ITS | Encounter Summary ---
Author Organization [employer] Address [address] [facility] 7t [place] [address] Care Team Providers Care Central Supply Clerk Name Role Phone Name, Bobby GRADY Primary Care Provider [phone] Reason for Visit * Reason Comments Med Refill Encounter Details Date Type Department Care Team ([facility] Contact Info) Description 07/20/2024 Refill [facility] [address] [place] [address] Sherly Pichardo FNP [address] [place] [address] Social History Tobacco Use Types Packs/Day Years [...] Info) Description 09/01/2024 11:30 AM EDT Telemedicine [address] [address] NameBobby MD [address] [place] [address] 09/02/2024 1:00 PM EDT Telemedicine [address] [address] Skye Melton RN 11/02/2024 9:30 AM EDT Office Visit [address] [address] NameBobby MD [address] [place] [address] documented as of this encounter Goals Goal Patient Goal Type Associated Problems Recent Progress Patient-Stated? Author Smoking cessation General No Inga Magaña, PharmD documented as of this encounter Visit Diagnoses Not on filedocumented in this encounter Additional Health Concerns Assessment Noted Time PHQ-9 Depression Total Score: 0 06/19/19 24 10:09 AM EDT documented as of this encounter Care Teams Central Supply Clerk Relationship Specialty Start Date End Date Name, MD Bobby [address] [place] [address] PCP - General Family Medicine 06/01/15 [place] 05/13/24 documented as of this encounter
--- OUTSIDE RECORDS SUMMARY | 2024-08-16 07:39 | XMS_ITS | Encounter Summary ---
Author Organization [employer] Address [address] [place] [address] Care Team Providers Care Receiving Barn Custodian Name Role Phone Name, Bobby GRADY Primary Care Provider [phone] Encounter Details Date Type Department Care Team (Latest Contact Info) Description 05/11/[address] [facility] - Main Lab [address] [place] [address] Yared Weaver MD [address] [place] [address], [phone] Atherosclerotic heart disease of [place] coronary artery without angina pectoris Social History [...] 8:21 AM EST Atherosclerotic heart disease of [place] coronary artery without angina pectoris BASIC METABOLIC PANEL Routine 05/12/2024 8:21 AM EST Atherosclerotic heart disease of [place] coronary artery without angina pectoris documented in this encounter Results * (ABNORMAL) Basic metabolic panel (05/12/2024 8:21 AM EST) Sodium 143 133 - 145 mmol/L LAB CHEMISTRY METHOD 05/12/2024 11:22 AM EST [facility] Potassium 3.6 3.5 - 5.5 mmol/L LAB CHEMISTRY METHOD 05/12/2024 11:22 AM [facility] Chloride 109 96 - 110 mmol/L LAB CHEMISTRY METHOD 05/12/2024 11:22 AM [facility] CO2 31 21 - 32 mmol/L LAB CHEMISTRY METHOD 05/12/2024 11:22 AM [facility] Anion Gap 3 3 - 11 LAB CHEMISTRY METHOD 05/12/2024 11:22 AM [facility] Glucose 95 70 - 100 mg/dL LAB CHEMISTRY METHOD 05/12/2024 11:22 AM [facility] BUN 21 5 - 25 mg/dL LAB CHEMISTRY METHOD 05/12/2024 11:22 AM [facility] Creatinine 0.80 0.50 - 1.10 mg/dL LAB CHEMISTRY METHOD 05/12/2024 11:22 AM [facility] eGFR 82 >=60 mL/min/1. 73m2 LAB CHEMISTRY METHOD 05/12/2024 11:22 AM [facility] Comment:Calculation based on the??Chronic Kidney Disease Epidemiology Collaboration (CKD-EPI) equation refit??without adjustment for race. BUN/Creatinine Ratio 26.3 LAB CHEMISTRY METHOD 05/12/2024 11:22 AM [facility] Calcium 8.0(L) 8.5 - 10.5 mg/dL LAB CHEMISTRY METHOD 05/12/2024 11:22 AM [facility] Blood Venous blood specimen / Unknown Venipuncture / Unknown 05/12/2024 8:21 AM EST 05/12/2024 10:56 AM EST us Yared Weaver MD LAB BLOOD ORDERABLES Final Resul t [facility] [address] [place] [address], * (ABNORMAL) Complete blood count (05/12/2024 8:21 AM EST) [facility] WBC 12.5(H) 4.8 - 10.8 K/mcL LAB HEMETOLOGY METHOD 05/12/2024 11:10 AM [facility] RBC 5.10(H) 3.80 - 4.80 M/mcL LAB HEMETOLOGY METHOD 05/12/2024 11:10 AM [facility] Hemoglobin 14.6 11.5 - 16.0 g/dL LAB HEMETOLOGY METHOD 05/12/2024 11:10 AM [facility] Hematocrit 46.7 35.0 - 47.0 % LAB HEMETOLOGY METHOD 05/12/2024 11:10 AM [facility] MCV 91.4 79.0 - 98.0 FL LAB HEMETOLOGY METHOD 05/12/2024 11:10 AM [facility] MCH 28.6 27.0 - 32.0 pcg LAB HEMETOLOGY METHOD 05/12/2024 11:10 AM [facility] MCHC 31.3(L) 32.0 - 37.0 g/dL LAB HEMETOLOGY METHOD 05/12/2024 11:10 AM [facility] RDW 16.3(H) 11.0 - 15.0 % LAB HEMETOLOGY METHOD 05/12/2024 11:10 AM [facility] Platelets 209 130 - 400 K/mcL LAB HEMETOLOGY METHOD 05/12/2024 11:10 AM [facility] MPV 10.7 7.0 - 11.0 FL LAB HEMETOLOGY METHOD 05/12/2024 11:10 AM [facility] NRBC 0.0 <1.0 % LAB HEMETOLOGY METHOD 05/12/2024 11:10 AM [facility] NRBC Absolute 0.00 <0.10 K/mcL LAB HEMETOLOGY METHOD 05/12/2024 11:10 AM EST [facility] Blood Venous blood specimen / Unknown Venipuncture / Unknown 05/12/2024 8:21 AM EST 05/12/2024 10:56 AM EST us Yared Weaver MD LAB BLOOD ORDERABLES Final Resul t [facility] [address] [place] [address], documented in this encounter Visit Diagnoses Diagnosis Atherosclerotic heart disease of [place] coronary artery without angina pectoris documented in this encounter Care Teams Receiving Barn Custodian Relationship Specialty Start Date End Date Name, MD Bobby [address] [place], [place] PCP - General Internal Medicine 04/01/18 documented as of this encounter
--- OUTSIDE RECORDS SUMMARY | 2024-08-16 07:39 | XMS_ITS | Encounter Summary ---
Author Organization [employer] Address [address] [place] [address] [address] [place] [address] Care Team Providers Care Water Tanker Driver Name Role Phone Name, Bobby GRADY Primary Care Provider [phone] Inga Magaña PharmD Unavailable Reason for Visit * Reason Comments Med Refill Encounter Details Date Type Department Care Team (Late st Contact Info) Description 11/18/2022 Refill [facility] [address] [place] [address] Name, MD Bobby [address] [place] [address] Type 2 diabetes mellitus without complications (CMS/[facility]) Social History Tobacco Use Types Packs/Day [...] Info) Description 09/01/2024 11:30 AM EDT Telemedicine [facility] [address] [place] [id number] Name, [place] [address] 09/02/2024 1:00 PM EDT Telemedicine [address] [address] Skye Melton, RN 11/02/2024 9:30 AM EDT Office Visit [facility] [address] [place] [phone] Name, [place] [address] documented as of this encounter Visit Diagnoses Diagnosis Type 2 diabetes mellitus without complications (CMS/HCC) documented in this encounter Additional Health Concerns Assessment Noted Time PHQ-9 Depression Total Score: 0 03/11/20 22 11:47 AM EST documented as of this encounter Care Teams Water Tanker Driver Relationship Specialty Start Date End Date Name, MD Bobby [address] [place] [id number] PCP - General Family Medicine 06/01/15 Inga Magaña PharmD [address] [place] [phone] Pharmacist Internal Medicine 01/07/23 09/29/23 [place] 05/13/24 documented as of this encounter
--- OUTSIDE RECORDS SUMMARY | 2024-08-16 07:39 | XMS_ITS | Data Portability ---
Author Organization Outside[employer], [employer] Address [address] [place] [id number] Care Team Providers Care Maltster Name Role Phone HIM CCA OTHER NAME, MOHINI Primary Care Provider Assessment Encounter Date Assessment Date Assessment LastModified by Organization Details LastModified Time 05/27/2023 05/27/2023 I provided real -time medical direction via phone for this encounter, and was available for additional phone based assistance as needed. I have reviewed and agree with the Assessment and Plan as documented by the Drop Hammer Setter Up. We discussed the diagnostic uncertainty of home [...] to call 911- verbalized understanding of instructions [email or web address] Not available 05/27/2023 10:52:57 08/31/2023 08/31/2023 Ms. [...] did a neb one hour prior to chemical test engineer arrival. VSS, SpO2 95% on RA. Drop Hammer Setter Up on site reports wheezing b/l. Allergy to [...] Ag, QL IA, respiratory specimen [address], [id number] 4 18:31:32 rapid flu (A+B) [address], [address] 4 18:31:52 BMP, serum or plasma [address], [address] 4 18:32:18 rapid SARS CoV 2 Ag, QL IA, respiratory specimen [address], [address] 4 09:38:44 rapid flu (A+B) [address], [address] 4 09:37:23 rapid strep group A, throat [address], [address] 4 09:37:50 BMP, serum or plasma 2023 024 NANCY [facility], [address] [place] [address], [phone] 4 09:38:18 rapid SARS CoV 2 Ag, QL IA, respiratory specimen 2023 024 [email or web address] 0 [facility], [address] [place] [address], [id number] 4 11:19:29 rapid flu (A+B) 2023 024 [email or web address] 0 [facility], [address] [place] [address], [id number] 4 11:19:31 rapid strep group A, throat 2023 024 [email or web address] 0 [facility], [address] [place] [address], [id number] 4 11:19:33 glucose, fingerstick , blood 2023 024 [email or web address] 0 [facility], [address] [place] [address], [id number] 4 11:30:51 Referral None recorded. Procedures None recorded. Surgeries None recorded. Imaging None recorded. Medication Orders methylpredn isolone sod succ (PF) 125 mg/2 mL solution for injection 2023 [facility], [address] [place] [address], [id number], 4 11:53:19 doxycycline hyclate 100 mg capsule 2023 024 [facility], [address] [place] [address], [id number], 4 14:23:57 doxycycline hyclate 100 mg capsule 2023 024 [facility], [address] [place] [address], [id number], 4 11:53:19 ipratropium 0.5 mg-albutero l 3 mg (2.5 mg base)/3 mL nebulizatio n soln 2023 024 [facility], [address] [place] [address], [id number], 4 11:53:19 prednisone 10 mg tablet 2023 024 [facility], [address] [place] [address], [id number], 4 14:23:58 magnesium sulfate 2 gram/50 mL in 0.9 % sodium chloride IV piggyback 2023 024 [facility], [address] [place] [address], [id number], 4 11:53:19 cefpodoxime 200 mg tablet 2023 024 [facility], [address] [place] [address], [id number], 4 13:59:54 prednisone 20 mg tablet 2023 024 [facility], [address] [place] [address], [id number], 4 17:38:03 prednisone 10 mg tablet 2023 024 [facility], [address] [place] [address], [id number], 4 13:59:54 prednisone 10 mg tablet 2023 024 [facility], [address] [place] [address], [id number], 4 12:00:49 prednisone 20 mg tablet [address] [facility], [address] [place] [address], [id number], 4 11:33:48 prednisone 10 mg tablet 2023 024 [id number], [address] [facility], [place], [address], 4 11:18:33 albuterol sulfate 2.5 mg/3 mL (0.083 %) solution for nebulizatio n 2023 024 [email or web address] 0 Not available 4 11:19:26 prednisone 20 mg tablet 2023 024 [email or web address] 0 Not available 4 11:19:25 prednisone 20 mg tablet 2023 024 [facility], [address] [place] [address], [id number], 4 13:43:28 Patient TargetsNo targets recorded. Patient InstructionsNo instructions recorded. Reason for Referral None Reported. Results Created Date Observation Date Name Description Value Unit Range Abnormal Flag Note LastModifiedBy Organization Detail LastModifiedTime 05/27/1905/27/2023 gluco se, david harman k, blood Blood Glucose: mg/dl 302 Not Available [facility] [address] [place] [address], [id number] 05/27/2023 11:19:35 05/27/19 24 05/27/2023 rapid flu (A+B) Flu negati ve Not Available [facility] [address] [place] [address], [id number] 05/27/2023 10:53:07 05/27/19 24 05/27/2023 rapid strep group A, throa t Strep negati ve Not Available [facility] [address] [place] [address], [id number] 05/27/2023 11:12:09 05/27/19 24 05/27/2023 rapid SARS CoV 2 Ag, QL IA, respi rator y speci men rapid SARS CoV 2 Ag, QL IA, respiratory specimen negati ve Not Available [facility] [address] [place] [address], [id number] 05/27/2023 10:53:06 12/24/19 24 12/24/2023 rapid flu (A+B) Flu negati ve Not Available [facility] ed [address] [place] [address], [id number] 12/24/2023 11:22:03 12/24/19 24 12/24/2023 rapid SARS CoV 2 Ag, QL IA, respi rator y speci men rapid SARS CoV 2 Ag, QL IA, respiratory specimen negati ve Not Available [facility] ed [address] [place] [address], [id number] 12/24/2023 11:22:00 Result Notes None recorded. Medical Equipment None Reported. Allergies Allergen ID Allergen Name Allergen Category Reaction Reaction Severity Criticality Documentation Date Start Date Code Code System Note Provider Name and Address Organization Details Recorded Time 4632 azithromy josephine medicatio n Not available Not available Not available 05/27/2023 92546 RxNorm Soila Langston MD [address] [place] [address],[address], [place], [address], Pint Please, [place] 4 12:02:49 4633 Product containin g angiotens in-conver ting enzyme inhibitor (product) medicatio n Not available Not available Not available 05/27/2023 30900 009 SNOMED Soila Langston MD [address] [place] [address],[address], [place], [address], Pint Please, [place] 4 12:02:55 4634 metformin medicatio n Not available Not available Not available 05/27/2023 6809 RxNorm Soila Langston MD [address] [place] [address],[address], [place], [address], Pint Please, [place] 4 12:03:02 4635 Dilaudid medicatio n Not available Not available Not available 05/27/2023 82664 3 RxNorm AMS Soila Langston MD [address] [place] [address],[address], [place], [address], Pint Please, [place] 4 12:03:32 6317 erythromy josephine medicatio n Not available Not available Not available 12/24/2023 4053 RxNorm BRANDT ROJO MD [address] [place] [address],[address], [place], [address], [facility], [place] 4 11:27:47 6318 metoprolo l Not available [...] Not Available Not Available aspirin 81 mg tablet,amrcelina yed release TAKE 1 TABLET BY MOUTH [...] Not Available Not Available No t Available [employer] Ultra Test strips USE DIRECTED TO TEST [...] MIX AND DRINK BOTTLE DIRECTED BY GI [facility] t active Not Available Not Available [...] Details Last Updated DateTime 4 84 /min 36145.8 g 20 /min 98.4 [degF] 152.4 cm 98 % 98 % 137 mm[Hg] 98 mm[Hg] Not Available [employer] [place] 4 10:52:14 Date Recorded Oxygen saturation Oxygen saturation in Arterial blood by Pulse oximetry Heart rate Body temperature Respiratory rate Systolic blood pressure Diastolic blood pressure Provider Name and Address Organization Details Last Updated DateTime 4 93 % 93 % 92 /min 98 [degF] 20 /min 190 mm[Hg] 100 mm[Hg] Not Available [employer] [place] 4 11:12:07 Date Recorded Oxygen saturation Oxygen saturation in Arterial blood by Pulse oximetry Body height Heart rate Respiratory rate Body weight Body temperature Systolic blood pressure Diastolic blood pressure Provider Name and Address Organization Details Last Updated DateTime 4 95 % 95 % 165.1 cm 85 /min 18 /min 01397.6 4 g 97.4 [degF] 125 mm[Hg] 86 mm[Hg] Not Available [employer] [facility]. 4 11:27:44 Date Recorded Heart rate Body weight Respiratory rate Body temperature Body height Oxygen saturation Oxygen saturation in Arterial blood by Pulse oximetry Systolic blood pressure Diastolic blood pressure Provider Name and Address Organization Details Last Updated DateTime 4 96 /min 84929.6 4 g 18 /min 97.9 [degF] 165.1 cm 91 % 91 % 129 mm[Hg] 71 mm[Hg] Not Available [facility]. 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 [id number] Zev Leger MD Main - [address] [address] 07/26/2023 11:12:02 07/26/2023 17:20:43 Acute exacerbation of chronic obstructive pulmonary disease [id number] J44.1 This 62-year-ol d female with COPD called [facility] because of increased dyspnea. She uses several inhalers and prednisone 5 mg daily. She doesn't qualify for home oxygen. I ordered a prednisone taper. She will follow-up with her PCP. The patient agreed with this plan. Low back pain [id number] M54.50 [id number] Dasha Eubanks MD [facility] [address] [place] [phone] 08/31/2023 11:27:40 09/01/2023 12:35:19 Acute exacerbation of chronic obstructive pulmonary disease [id number] J44.1 [id number] Santos Santoyo MD [facility] [address] [place] [address] 10/19/2023 17:19:16 10/20/2023 09:43:42 Acute exacerbation of chronic obstructive pulmonary disease [id number] J44.1 [id number] BRANDT ROJO MD [facility] - [address] [address] 12/24/2023 11:18:42 12/24/2023 14:43:17 Acute exacerbation of chronic obstructive pulmonary disease [id number] J44.1 Evaluation in the field was performed by my chemical test engineer colleague, as noted above, I provided real-time [...] the ED for further evaluation . An [facility]. Rapid COVID and flu tests were [...] with the first dose given by the chemical test engineer. -Continue Zyrtec daily-Afte r she received the [...] the ED for further evaluation . An [facility]. Primary care, consider__ _ Dispositio n: [...] Mendez Member ID Guarantor Name 12/24/2023 1 [facility] - DOS ON OR AFTER 2022 - DUAL ELIGIBLE - GROUP HOME OPTIONS AND ONE CARE (MEDICARE REPLACEMENT/ADV ANTAGE - HMO) Marita Lawrence [id number] Marita Lawrence Notes Date Note Type Note Provider Name and Address Organization Details Recorded Time 05/27/2023 text/html HPI: Patient at home with known COPD. Not on oxygen at baseline. Feeling ill with increased SOB RESIN REMOVER cough. O2 sat at baseline is 96% drops to 92% with exertion. .................. .................. .................. .................. .................. .................. .................. ............... CRC Nurse Triage Notes (Tashia Lazo): Comments: CRC RN DID NOT NEED FURTHER INFO .................. .................. .................. .................. .................. .................. .................. ............... Drop Hammer Setter Up Note From Cullen Joseph: Pt caox3 answers [...] home. Pt used duo neb x30 min PRODUCT DEVELOPMENT ECOLOGIST at request of nurse on phone. Pt [...] BGL 306mg/dl (no food or insulin today) [facility] orders albuterol neb, prednisone 40mg PO, administered [...] throat except when coughing Soila Langston MD [address] [place] [address],[address], [place], [phone], [employer] 05/27/2023 12:35:05 07/26/2023 text/html CRC Nurse Triage Notes (Miko Vogt): Chief Complaints: Shortness of Breath/Dyspnea PMH: Hypertension, COPD/Asthma, Diabetes, Heart Disease Allergies: Unknown Comments: Timber Surveyor verified the member's name//address and phone number. [...] treatment if needed -HODA Whyte MD [address] [facility],[address], [place], [address], [facility] 07/30/2023 06:44:37 08/31/2023 text/html HPI: Call [...] in clear full sentences. No distress noted client care consultant. [facility] Reviewed home care advise, ER precautions and reasons to call back. Verified contact information and allergies. .................. .................. .................. .................. .................. .................. .................. ............... CRC Nurse Triage Notes (Tashia Lazo): Comments: CRC RN DID NEED FURTHER INFO .................. .................. .................. .................. .................. .................. .................. ............... Drop Hammer Setter Up Note From Ben Delacruz: Smartcare visit for [...] cough with thick white mucus. consulted with [facility] Eubanks, who prescribed 40 mg of Prednisone to be given on scene with remainder of prescription called the patient's Pharmacy. Reviewed red flags for ED. patient education provided. [facility] Medication Orders: prednisone 20 mg tablet: Administered .................. .................. .................. .................. .................. .................. .................. ............... Disposition: Fulfilled Dasha Eubanks MD [address] [facility],[address], [place], [address], [employer] 08/31/2023 17:40:50 10/19/2023 text/html CRC Nurse Triage Notes (Miko Vogt): Reason For Request: sob/hx COPD Chief Complaints: Shortness of Breath/Dyspnea PMH: Hypertension, COPD/Asthma, Diabetes, Heart Disease Allergies: Metoprolol Comments: Timber Surveyor verified the member's name//address and phone number. [...] emergency treatment if needed -Kiran Vogt RN Drop Hammer Setter Up POC Test Results from Jayme Ben - ALS Rapid influenza antigen (19:05:46) Flu: - Rapid COVID antigen (19:05:52) COVID: - .................. .................. .................. .................. .................. .................. .................. ............... Drop Hammer Setter Up Note From Ben Delacruz: Smartcare visit for [...] swabs run and both negative. Consulted with [facility] Dr. Santoyo who prescribed prednisone and cefpedoxime. First dose of prednisone given on scene with remainder of script sent to pharmacy. Reviewed red flags. Pt education provided. .................. .................. .................. .................. .................. .................. .................. ............... Disposition: Fulfilled Santos Santoyo MD [address] [facility],[address], [place], [address], [employer] 10/19/2023 23:50:40 12/24/2023 text/html CRC Nurse Triage Notes (Miko Vogt): Reason For Request: Pt reporting COPD exacerbation Chief Complaints: Shortness of Breath/Dyspnea, COPD PMH: Hypertension, COPD/Asthma, Diabetes, Heart Disease Allergies: Metoprolol Comments: Timber Surveyor verified the member's name//address and phone number. [...] emergency treatment if needed -Kiran Vogt RN Drop Hammer Setter Up Organization Information for Kal [employer] Business Legal Name: [employer]? Address: [address] [place] [address], Manager Cable: Bk Roblero MD CLIA No.: [id number] Drop Hammer Setter Up POC Test Results from [employer] iSTAT [...] .................. .................. .................. .................. .................. .................. ............... Drop Hammer Setter Up Note From Kal Hathaway: Dispatched to above [...] pink warm and dry, good radial pulse. [facility] contacted, ordered Chem 8, IV, Solumedrol, Covid and Flu test and Duoneb. 18g IV established, R AC, lab draw preformed, ISTAT checked, results uploaded. Covid-19 and Flu test checked, both negative. Patient started on Duoneb. 125mg Solumedrol administered IV. Patient reassessed, SPO2 still high 80s on RA, still tachypneic. [facility] updated, ordered 2g Mag IV. Patient administered 2g Mag IV. Patient reassessed with no change. [facility] updated, ordered additional Duoneb. Neb administered. Patient walked about 15 steps to bathroom, became tachypneic in the 30s. [facility] updated, recommends transport to ER for further evaluation. Patient agrees with this. 911 contacted. [place] [facility] responded. Verbal report given to [place] Drop Hammer Setter Up, took over patient care. Patient being transported to [facility]. SC8 clear. EOR. .................. .................. .................. .................. .................. .................. .................. ............... Disposition: Fulfilled BRANDT ROJO MD [address] [place] [address],[address] [facility], [place], [phone], [employer] [facility] [employer] 12/24/2023 13:27:13 OBGyn Episode No OBEpisode recorded.
--- OUTSIDE RECORDS SUMMARY | 2024-08-16 07:39 | XMS_ITS | Encounter Summary ---
Author Organization [employer] Address [address] [place] [address] Care Team Providers Care Cisco Network Architect Name Role Phone Name, Bobby GRADY Primary Care Provider [phone] Encounter Details Date Type Department Care Team (Latest Contact Info) Description 05/04/2024 Lab Requisition [facility] Lab [address] [place] [address] Yared Weaver MD [address] [place] [address], [phone] Atherosclerotic heart disease of [place] coronary artery without angina pectoris Social History [...] [place] coronary artery without angina pectoris documented in this encounter Results * (ABNORMAL) Basic metabolic panel (05/05/2024 5:05 AM EST) Sodium 144 133 - 145 mmol/L LAB CHEMISTRY METHOD 05/05/2024 11:28 AM EST [facility] Potassium 3.9 3.5 - 5.5 mmol/L LAB CHEMISTRY METHOD 05/05/2024 11:[address] [facility] Chloride 103 96 - 110 mmol/L LAB CHEMISTRY METHOD 05/05/2024 11:[address] [facility] CO2 34(H) 21 - 32 mmol/L LAB CHEMISTRY METHOD 05/05/2024 11:[address] [facility] Anion Gap 7 3 - 11 LAB CHEMISTRY METHOD 05/05/2024 11:[address] [facility] Glucose 101(H) 70 - 100 mg/dL LAB CHEMISTRY METHOD 05/05/2024 11:[address] [facility] BUN 19 5 - 25 mg/dL LAB CHEMISTRY METHOD 05/05/2024 11:[address] [facility] Creatinine 0.71 0.50 - 1.10 mg/dL LAB CHEMISTRY METHOD 05/05/2024 11:[address] [facility] eGFR 95 >=60 mL/min/1. 73m2 LAB CHEMISTRY METHOD 05/05/2024 11:[address] [facility] Comment:Calculation based on the??Chronic Kidney Disease Epidemiology Collaboration (CKD-EPI) equation refit??without adjustment for race. BUN/Creatinine Ratio 26.8 LAB CHEMISTRY METHOD 05/05/2024 11:[address] [facility] Calcium 8.0(L) 8.5 - 10.5 mg/dL LAB CHEMISTRY METHOD 05/05/2024 11:[address] [facility] Blood Venous blood specimen / Unknown Venipuncture / Unknown 05/05/2024 5:05 AM EST 05/05/2024 9:37 AM EST us Yared Weaver MD LAB BLOOD ORDERABLES Final Resul t [facility] [address] [place] [address], * (ABNORMAL) Complete blood count (05/05/2024 5:05 AM EST) [facility] WBC 13.8(H) 4.8 - 10.8 K/mcL LAB HEMETOLOGY METHOD 05/05/2024 11:[address] [facility] RBC 5.30(H) 3.80 - 4.80 M/mcL LAB HEMETOLOGY METHOD 05/05/2024 11:[address] [facility] Hemoglobin 15.0 11.5 - 16.0 g/dL LAB HEMETOLOGY METHOD 05/05/2024 11:[address] [facility] Hematocrit 47.2(H) 35.0 - 47.0 % LAB HEMETOLOGY METHOD 05/05/2024 11:[address] [facility] MCV 89.6 79.0 - 98.0 FL LAB HEMETOLOGY METHOD 05/05/2024 11:[address] [facility] MCH 28.5 27.0 - 32.0 pcg LAB HEMETOLOGY METHOD 05/05/2024 11:[address] [facility] MCHC 31.8(L) 32.0 - 37.0 g/dL LAB HEMETOLOGY METHOD 05/05/2024 11:[address] [facility] RDW 15.9(H) 11.0 - 15.0 % LAB HEMETOLOGY METHOD 05/05/2024 11:[address] [facility] Platelets 184 130 - 400 K/mcL LAB HEMETOLOGY METHOD 05/05/2024 11:[address] [facility] MPV 12.0(H) 7.0 - 11.0 FL LAB HEMETOLOGY METHOD 05/05/2024 11:[address] [facility] NRBC 0.0 <1.0 % LAB HEMETOLOGY METHOD 05/05/2024 11:[address] [facility] NRBC Absolute 0.00 <0.10 K/mcL LAB HEMETOLOGY METHOD 05/05/2024 11:24 AM EST [facility] Blood Venous blood specimen / Unknown Venipuncture / Unknown 05/05/2024 5:05 AM EST 05/05/2024 9:37 AM EST us Yared Weaver MD LAB BLOOD ORDERABLES Final Resul t [facility] [address] [place] [address], documented in this encounter Visit Diagnoses Diagnosis Atherosclerotic heart disease of [place] coronary artery without angina pectoris documented in this encounter Care Teams Cisco Network Architect Relationship Specialty Start Date End Date Name, MD Bobby [address] [place], [place] PCP - General Internal Medicine 04/01/18 documented as of this encounter
--- OUTSIDE RECORDS SUMMARY | 2024-08-16 07:39 | XMS_ITS | Encounter Summary ---
Author Organization [employer] Address [address] [place] [address] [address] [place] [address] Care Team Providers Care Still Photographer Name Role Phone Name, Bobby GRADY Primary Care Provider [phone] Inga Magaña PharmD Unavailable [phone] Reason for Visit * Reason Comments Med Refill Encounter Details Date Type Department Care Team (Late st Contact Info) Description 04/07/[address] [facility] [address] [facility] [place] [address] Sherly Pichardo, CLERK RATING [address] [place] [address] Chronic low back pain with sciatica, sciatica [...] Description 09/01/2024 11:30 AM EDT Telemedicine [facility] [place] [address] Name, [place] [address] 09/02/2024 1:00 PM EDT Telemedicine [facility] [place] [address] Skye Melton, HODA 11/02/2024 9:30 AM EDT Office Visit [facility] [place] [address] Name, MD Bobby [facility] [place] [address] documented as of this encounter Visit Diagnoses Diagnosis Chronic low back pain with sciatica, sciatica laterality unspecified, unspecified back pain laterality documented in this encounter Additional Health Concerns Assessment Noted Time PHQ-9 Depression Total Score: 0 03/11/20 22 11:47 AM EST documented as of this encounter Care Teams Still Photographer Relationship Specialty Start Date End Date Name, MD Bobby [facility] [place] [address] PCP - General Family Medicine 06/01/15 Inga Magaña PharmD [facility] [place] [address] Pharmacist Internal Medicine 01/07/23 09/29/23 Eloina 05/13/24 documented as of this encounter
--- OUTSIDE RECORDS SUMMARY | 2024-08-16 07:39 | XMS_ITS | Encounter Summary ---
Author Organization [employer] Address [address] [facility] [address] [place] [address] Care Team Providers Care Post Production Assistant Name Role Phone Name, Bobby GRADY Primary Care Provider [phone] Inga Magaña PharmD Unavailable [phone] Reason for Visit * Reason Onset Date Comments Med Refill 05/26/2023 Encounter Details Date Type Department Care Team (Late st Contact Info) Description 05/26/2023 Telephone [facility] [address] [place] [address] Name, MD Bobby [address] [place] [address] Med Refill Social History Tobacco Use Types [...] 7.5-325 MG tablet To be sent to: [facility] [place], [place] - [address] [place] [address] documented in this encounter Plan of Treatment Upcoming Encounters Date Type Department Care Team (Late st Contact Info) Description 09/01/2024 11:30 AM EDT Telemedicine [facility] [address] [place] [address] Name, MD Bobby [address] [place] [address] 09/02/2024 1:00 PM EDT Telemedicine [facility] [address] [place] [address] Skye Melton RN 11/02/2024 9:30 AM EDT Office Visit [facility] [address] [place] [address] Name, MD Bobby [address] [place] [address] documented as of this encounter Goals Goal Patient Goal Type Associated Problems Recent Progress Patient-Stated? Author Smoking cessation General No Inga Magaña, PharmD documented as of this encounter Visit Diagnoses Not on filedocumented in this encounter Additional Health Concerns Assessment Noted Time PHQ-9 Depression Total Score: 0 03/11/20 22 11:47 AM EST documented as of this encounter Care Teams Post Production Assistant Relationship Specialty Start Date End Date Name, MD Bobby [address] [place] [address] PCP - General Family Medicine 06/01/15 Inga Magaña, PharmD [address] [place] [address] Pharmacist Internal Medicine 01/07/23 09/29/23 [place] 05/13/24 documented as of this encounter
--- OUTSIDE RECORDS SUMMARY | 2024-08-16 07:39 | XMS_ITS | Encounter Summary ---
Author Organization [employer] Address [address] [place] [address] [address], [place] [address] Care Team Providers Care Logistics Coordinator Name Role Phone Name, Bobby GRADY Primary Care Provider [phone] Inga Magaña PharmD Unavailable [phone] Reason for Referral * Imaging (Routine) - Closed Specialty Diagnoses / Procedures Referred By Contac t Referred To Contact Diagnoses Other ovarian cyst, right side Procedures US Pelvis Transvaginal Monisha Linton CNM [address] [place] [address] Phone: tel: fax: [facility] MRI and CT Scan [address] [place] [address] Phone: tel: fax: Referral ID Status Reason Start Date Expiration Date Visits Re quested Visits Authorized [id number] Closed 04/01/2022 09/28/2022 1 1 Encounter Details Date Type Department Care Team ([facility] st Contact Info) Description 04/01/2022 Orders Only [facility] [address] [place], [place] [phone] Monisha Linton CNM [address] [place], [place] [phone] Other ovarian cyst, right side (Primary Dx) [...] Info) Description 09/01/2024 11:30 AM EDT Telemedicine [address] [address] NameBobby MD [address] [place] [address] 09/02/2024 1:00 PM EDT Telemedicine [address] [address] Skye Melton RN 11/02/2024 9:30 AM EDT Office Visit [address] [address] Bobby David MD [address] [place] [address] Scheduled Orders Name Type Priority Associated Diagnoses [...] documented as of this encounter Care Teams Logistics Coordinator Relationship Specialty Start Date End Date NameBobby MD [address] [place] [address] PCP - General Family Medicine 06/01/15 Inga Magaña, MiltonD [address] [place] [address] Pharmacist Internal Medicine 01/07/23 09/29/23 [place] 05/13/24 documented as of this encounter
--- OUTSIDE RECORDS SUMMARY | 2024-08-16 07:39 | XMS_ITS | Encounter Summary ---
Author Organization [employer] Address [address] [facility] [address] [place] [address] Care Team Providers Care Lollypop Machine Operator Name Role Phone Name, Bobby GRADY Primary Care Provider [phone] Inga Magaña PharmD Unavailable [phone] Reason for Visit * Reason Comments Med Change Request Encounter Details Date Type Department Care Team ([facility] st Contact Info) Description 06/09/[address] [facility] [address] [place] [address] Name, MD Bobby [address] [place] [address] Social History Tobacco Use Types Packs/Day Years [...] Info) Description 09/01/2024 11:30 AM EDT Telemedicine [address] [address] NameBobby MD [address] [place] [address] 09/02/2024 1:00 PM EDT Telemedicine [address] [address] Skye Melton RN 11/02/2024 9:30 AM EDT Office Visit [address] [address] NameBobby MD [address] [place] [address] documented as of this encounter Goals Goal Patient Goal Type Associated Problems Recent Progress Patient-Stated? Author Smoking cessation General No Inga Magaña, PharmD documented as of this encounter Visit Diagnoses Not on filedocumented in this encounter Additional Health Concerns Assessment Noted Time PHQ-9 Depression Total Score: 0 03/11/20 22 11:47 AM EST documented as of this encounter Care Teams Lollypop Machine Operator Relationship Specialty Start Date End Date Bobby David MD [address] [place] [address] PCP - General Family Medicine 06/01/15 Inga Magaña, PharmD [address] [place] [address] Pharmacist Internal Medicine 01/07/23 09/29/23 [place] 05/13/24 documented as of this encounter
--- OUTSIDE RECORDS SUMMARY | 2024-08-16 07:40 | XMS_ITS | Data Portability ---
Author Organization [facility], Main Office Address [address] [place] [address] [address] [place] [address] Care Team Providers Care Brick Sorter Name Role Phone [facility] OTHER NAME, MOHINI Primary Care Provider Assessment Encounter Date Assessment Date Assessment LastModified by Organization Details LastModified Time 05/03/2024 05/03/2024 Labs 04/27:Na 129-K 4.0-Bun 38-Cr 0.7-wbc 15.9-hgb 15.2- hct 45-plt 240 [email or web address] Not available 05/03/2024 18:08:16 05/05/2024 05/05/2024 Labs 04/27:Na 129-K 4.0-Bun 38-Cr 0.7-wbc 15.9-hgb 15.2- hct 45-plt 240 [email or web address] Not available 05/05/2024 12:09:46 05/11/2024 05/11/2024 Labs 05/05: Na 144-K 3.9-Bun 19- Cr 0.7-wbc 13.8-hgb 15-hct 47.2 Labs 04/27:Na 129-K 4.0-Bun 38-Cr 0.7-wbc 15.9-hgb 15.2- hct 45-plt 240 Not available 05/11/2024 16:44:46 05/12/2024 05/12/2024 45 minutes spent on coordination of discharge. [email or web address] Not available 05/12/2024 11:03:36 Plan of Treatment [...] exacerbatio n of chronic obstructive pulmonary disease 682855927 Active 2024 Not Available [facility] 5 13:13:30 Pneumonia caused by Influenza A virus 361368136 Active 2024 Not Available [facility] 5 12:06:26 Pneumonia caused by respiratory syncytial virus 839320903 Active 2024 Not Available [facility] 5 12:06:27 Type 2 diabetes mellitus 55033915 Active 2024 Not Available [facility] 5 12:09:46 Essential hypertensio n 50100608 Active 2024 Not Available [facility] 5 12:10:17 Hypothyroid ism 57867520 Active 2024 Not Available [facility] 5 12:10:48 Gastroesoph ageal reflux disease without esophagitis 965698195 Active 2024 Not Available [facility] 12:11:49 Primary gout 38213647 Active 2024 Not Available [facility] 5 12:11:50 Muscle weakness 19269041 Active 2024 Not Available [facility] 5 09:55:06 Unsteady when standing 097282484 Active 2024 Not Available [facility] 5 09:56:09 Difficulty walking 650919435 Active 2024 Not Available [facility] 5 09:56:40 Chronic obstructive pulmonary disease 81906288 Active 2024 GEETA KWOK [address], [address], [place], [address] , [facility] 5 14:52:55 Leukocytosi s 293612999 Active 2024 from steriod use MIGUE BROOKSRD, [facility] [address], [address], [place], [address] , [email or web address] 5 14:54:46 Coronary arterioscle rosis 77533286 Active 2024 MIGUEANNETTE BRISENO, [facility] [address], [address], [place], [address] , [email or web address] 5 15:05:30 Gout 69871056 Active 2024 MIGUEANNETTE BRISENO, [address], [address], [place], [address] , [email or web address] 5 15:09:53 Allergic rhinitis 87160184 Active 2024 MIGUE BRISENO, [facility] [address], [address], [place], [address] , [email or web address] 5 15:17:53 Smoker 74526803 Active 2024 MIGUE BRISENO, [facility] [address], [address], [place], [address] , [email or web address] 5 15:27:03 Uncomplicat ed asthma 485416937 Active 2024 Not Available [facility] 5 14:07:57 Old myocardial infarction 1485883 Active 2024 Not Available [facility] 5 14:08:17 Obstructive sleep apnea syndrome 15987547 Active 2024 Not Available [facility] 5 14:09:00 Disorder of nervous system due to type 2 diabetes mellitus 292348445 Active 2024 Not Available [facility] 5 14:09:32 Problem Notes None recorded. Medical Equipment None Reported. Allergies Allergen ID Allergen Name Allergen Category Reaction Reaction Severity Criticality Documentation Date Start Date Code Code System Note Provider Name and Address Organization Details Recorded Time 81645 Product containin g angiotens in-conver ting enzyme inhibitor (product) medicatio n angioedem a severe Not available 04/28/20242024 16753 009 SNOMED Not Available [facility] 15:23:36 53383 enalapril Not available Not available Not available high 04/28/20242017 3827 RxNorm Other react ion(s ): Anaph ylaxi s Chiquita Guardado MD [address] [place] [address], [address], [place], [address], [facility] 5 17:30:53 90292 metformin medicatio n Not available Not available Not available 04/28/20242024 6809 RxNorm Not Available [facility] 5 15:22:33 82776 hydromorp cb medicatio n Not available Not available high 04/28/20242022 3423 RxNorm Other react ion(s ): TINGL ING, PT DOES NOT LIKE THE FEELI NG MED GIVES HER Chiquita Guardado MD [address], [address], [place], [address], [email or web address] 5 17:31:40 79715 azithromy josephine medicatio n Not available Not available Not available 05/03/2024 61833 RxNorm Chiquita Guardado MD [address] [place] [address], [address], [place], [address], [email or web address] 5 17:30:27 56097 erythromy josephine medicatio n anaphylax is Not available high 05/03/20242010 4053 RxNorm Other react ion(s ): Hives /Urti caria , pustu les over entir e body, Unkno wn Other React ion(s ): Unkno wn Chiquita Guardado MD [address] [place] [address], [address], [place], [address], [facility] 5 17:31:13 98524 lisinopri l medicatio n Not available Not available Not available 05/03/2024 12461 RxNorm Chiquita Guardado MD [address] [place] [address], [address], [place], [address], [email or web address] 17:31:53 05963 metoprolo l Not available Not available Not available Not available 05/03/2024 6918 RxNorm Chiquita Guardado MD [address] [place] [address] [address], [place], [address], [facility] 17:32:14 Medications Name Sig Start Date Stop [...] Updated DateTime 5 165.1 cm 27.1 kg/m2 63939.1 2 g 78 /min 18 /min 97.5 [degF] 95 % 95 % 124 mm[Hg] 62 mm[Hg] Chiquita Guardado MD [address] [facility] [address], [place], [address] , [email or web address] 5 17:39:40 Date Recorded Body height Heart rate Respiratory rate Body temperature Oxygen saturation Oxygen saturation in Arterial blood by Pulse oximetry Systolic blood pressure Diastolic blood pressure Provider Name and Address Organization Details Last Updated DateTime 5 165.1 cm 86 /min 18 /min 97.5 [degF] 96 % 96 % 129 mm[Hg] 78 mm[Hg] JOHAN VU NP [address] [facility] [address], [place], [address] , [email or web address] 5 12:09:17 Date Recorded Body height Body temperature Respiratory rate Heart rate Oxygen saturation Oxygen saturation in Arterial blood by Pulse oximetry Provider Name and Address Organization Details Last Updated DateTime 5 165.1 cm 97.4 [degF] 20 /min 72 /min 95 % 95 % GEETA KWOK [address], [address], [place], [address], [email or web address] 5 16:23:28 Date Recorded Body height Heart rate Respiratory rate Body temperature Oxygen saturation Oxygen saturation in Arterial blood by Pulse oximetry Systolic blood pressure Diastolic blood pressure Provider Name and Address Organization Details Last Updated DateTime 165.1 cm 80 /min 20 /min 97.4 [degF] 95 % 95 % 155 mm[Hg] 65 mm[Hg] JOHAN VU NP [address], [address], [place], [address], [email or web address] 10:33:52 Date Recorded Body height Respiratory rate Oxygen saturation Oxygen saturation in Arterial blood by Pulse oximetry Provider Name and Address Organization Details Last Updated DateTime 05/04/2024 165.1 cm 20 /min 95 % 95 % GEETA KWOK [address], [address], [place], [address], [email or web address] 16:47:12 Social History Question Answer Notes LastModified by Organization Details LastModified Time Tobacco Smoking Status Former Smoker quit 2017, then started again, now none x 2 months. Chiquita Guardado MD [address], [address], [place], [address], [email or web address] 05/03/2024 22:40:28 Do You Have An Advance Directive? Yes Information not available 05/01/2024 What Is Your Code Status? Full Code Information not available 05/01/2024 Where Do You Live? [facility] With Information not available 05/03/2024 Legal Guardian? No Informati on not available 05/03/2024 Do You Have A Medical Power Of Progress Worker? Yes Information not available 05/03/2024 What Was [...] Recorded Time Tdap 0 completed Samuel Everettsebastian-Malik [facility] 04/29/2024 12:14:00 Tdap 3 completed Samuel Everettsebastian-Mal[facility] 04/29/2024 12:14:06 Pneumococcal conjugate PCV 13 3 completed Samuel Everettsebastian-Malik [facility] 04/29/2024 12:14:27 pneumococcal polysaccharide PPV23 0 completed Samuel Everettsebastian-Malik [facility] 04/29/2024 12:14:43 influenza, unspecified formulation 1 completed [facility] 04/29/2024 12:15:03 influenza, unspecified formulation 2 completed [facility] 04/29/2024 12:15:20 influenza, unspecified formulation 3 completed Samuel Felipe-Malik [facility] 04/29/2024 12:15:25 influenza, unspecified formulation 4 completed Samuel [facility] 04/29/2024 12:15:30 SARS-COV-2 (COVID-19) vaccine, UNSPECIFIED 1 completed Samuel Everettsebastian-Malik [facility] 04/29/2024 12:16:07 SARS-COV-2 (COVID-19) vaccine, UNSPECIFIED 1 completed Samuel [facility] 04/29/2024 12:16:12 SARS-COV-2 (COVID-19) vaccine, UNSPECIFIED 1 completed Samuel Chappell [facility] 04/29/2024 12:16:16 SARS-COV-2 (COVID-19) vaccine, UNSPECIFIED 2 completed Samuel Chappell [facility] 04/29/2024 12:16:21 SARS-COV-2 (COVID-19) vaccine, UNSPECIFIED 2 completed Samuel Chappell [facility] 04/29/2024 12:16:27 SARS-COV-2 (COVID-19) vaccine, UNSPECIFIED 3 completed Samuel Chappell [facility] 04/29/2024 12:16:41 SARS-COV-2 (COVID-19) vaccine, UNSPECIFIED 4 completed Samuel Chappell [facility] 04/29/2024 12:16:51 zoster, unspecified formulation 3 completed Samuel Chappell [facility] 04/29/2024 12:17:13 zoster, unspecified formulation 3 completed [facility] 04/29/2024 12:17:19 Past Encounters Encounter ID Performer Location Encounter Start Date Encounter Closed Date Diagnosis/Indication Diagnosis SNOMED-CT Code Diagnosis ICD10 Code Diagnosis Note [id number] GEETA KWOK [address] [place] [address] 04/29/2024 10:45:26 05/03/2024 09:36:15 Chronic obstructive pulmonary disease 11409779 J44.9 2/ RSV/Influe nzaon presentati on O2 sats as low as 83 % and tachypneic 26tx inpatient with IV steroids, neb tx and abxcont doxycyclin e BID for 2 more dayscont on neb tx prn, albuterol inhaler prncont trelegy, respimat, dupixent. roflumilas tnow on prednisone taper , resume 2.5 mg when tapercompl etedmonito r resp status. Type 2 asa betes mellitus 52436065 E11.9 hx of neuropathy On trulicity, Insulin SSC, lyrica, jardiancec ont lantus at hsrobaxin prn for neuropathy painmonito r BGL TID Hypothyroidism 91035052 E03.9 continue on levothyrox inemonitor tsh prn Coronary arteriosclerosis 67606750 I25.10 HX of HLD, HTNon statincont on asamonitor for cardiac sx Essential hypertension 58371084 I10 cont on coreg dailymonit or BP Gout 84578737 M10.9 cont allopurino l dailyfollo w uric acid level prn Smoker 48349648 F17.200 reports that she has not smoked in 1 monthnow on nicotine patch 21 mgprovide support for cessation Hyperlipidemia 26790609 E78.5 cont atorvastat inmonitor labs prn Gastroesop hageal reflux disease without esophagitis 796772104 K21.9 cont omeprazole dailymonit or GI sx Allergic rhinitis 132095 04 J30.9 cont on fluticason e, montelukas t, cetirizine Leukocytosis 739782365 D 72.829 chronic from chronic steriod usefollow labs Low back pain 366038441 M54.50 cont lido patch qdpercocet prnon robaxin for neuropathy as well [id number] Chiquita Guardado MD [facility] [address] [place] [address] 05/03/2024 17:29:21 05/16/2024 12:42:00 Chronic obstructive pulmonary disease 89432884 J43.8 S/P several recent exacerbati ons, now [...] as planned. Type 2 asa betes mellitus 04976360 E11.42 Some high sugars since here, likely due to prednisone , expect improvemen t as taper continues. Continue Lantus 35U BID, Trulicity 1.5 mg weekly, Jardiance 10 mg qd, and SSI.Contin ue Lyrica 100 mg TID and methocarbo mol 750 mg q 8 hrs prn for neuropathy pain.Monit or fingerstic ks TID and HgA1C as outpt. Hypothyroidism 42567012 E03.8 Continue on levothyrox ine 112 mcg qdMonitor TSH as outpt. Coronary arteriosclerosis 79411188 I25.10 No recent sxs.Contin ue atorvastat in 80 mg qd, carvedilol 6.25 mg BID (hold for SBP<90), and ASA 81 mg qd.Monitor for sxs.F/U with cardio as planned. Essential hypertension 84936073 I10 Good control on meds as above.Chantel tor BP and labs. Gout 14389705 M10.09 No current sxs.Contin ue allopurino l 100 mg qdMonitor for flare. Smoker 17584531 F17.200 No longer smoking since recent hospitaliz ations.Con tinue nicotine patch 21 mg qd, taper as outpt.Cont inue to encourage abstinence . Hyperlipidemia 89990368 E78.49 Continue atorvastat in 80 mg qdMonitor labs as outpt. Gastroesop hageal reflux disease without esophagitis 269040190 K21.9 No current sxs.Contin ue omeprazole qdMonitor GI sxs Allergic rhinitis 639209 04 J30.89 Continue fluticason e nasal spray, montelukas t, and cetirizine Monitor sxs. Leukocytosis 346187469 D 72.828 Thought to be due to prednisone .Monitor Low back pain 183570090 M54.59 Under fair control.Co ntinue robaxin and Lyrica as above and lidocaine patch qd, and Percocet 7.5/325 mg q 6 hrs prn.PT/OT as above. Intertrigo 93065506 L30. 4 Continue diflucan 150 mg qod x 3 doses and will start nystatin cream BID.Monito r for healing. Asthenia 19957515 R53.1 Very deconditio bernice.Needs PT/OT for strengthen ing, balance, gait training, safety and function.C ontinue fall precaution s.Monitor for safety. [id number] GEETA KWOK [address] [place] [address] 05/04/2024 11:59:27 05/16/2024 14:09:43 Viral pharyngitis 6569387 B34.9 throat and tonsil noted with erythema and slight swelling, not exudateswi ll add lozenges take 1 prn Q2 and warm water and salt rinses for comfort qid prn Intertrigo 56775159 L30. 4 acute onset over 1-2 dayserythe matous and scattered dry patchy rash noted covering vast majority of left and right buttockscu rrently rx diflucan qod for 3 dosesdue to pruritis will add clotrimazo le/beta BID for 10 daydiscuss ed with nursing will re eval in 2 days [id number] MANDO DAVID [address] [place] [address] 05/05/2024 12:08:09 05/10/2024 11:42:42 Chronic obstructive pulmonary disease 99165398 J44.9 2/ RSV/Influe nzaDoing betterWean ed off Q3Zagzpkix off prednisone .Doxy completed. Continue nebs and inhalers.C ombivent dose currently 2 inh bid, not typical but will not change as med managed by Pulmonolog ist.Monito r Type 2 asa betes mellitus 56299310 E11.9 BS borderline low in am and at lunchStill on prednisone taper.Disc ussed with pt.Plan -Continue trulicity and jardiance and SSIReduce lantus to 25 units q HS, continue 35 units in amAdd large portions to diet, refer to secondary market manager per pt. request, and assure HS snack (manuela crackers and PB on dinner tray)Monit or closely and adjust meds as needed. Hypothyroidism 80930111 E03.9 continue on levothyrox inemonitor tsh prn Coronary arteriosclerosis 52652146 I25.10 HX of HLD, HTNon statin, coreg, ASAmonitor for cardiac sx Essential hypertension 50411339 I10 cont on coreg dailymonit or BP Gout 16895002 M10.9 cont allopurino l dailyfollo w uric acid level prn Smoker 69257100 F17.200 reports that she has not smoked in 1 monthnow on nicotine patch 21 mgprovide support for cessation Hyperlipidemia 49380320 E78.5 cont atorvastat inmonitor labs prn Gastroesop hageal reflux disease without esophagitis 373392111 K21.9 cont omeprazole daily - came in on this doseUnsure of baseline, but will continue this dose for now, mahesh. with higher doses of prednisone .Consider dose taper when more stable and if stays LTC.monito r GI sx Allergic rhinitis 347642 04 J30.9 cont on fluticason e, montelukas t, cetirizine Leukocytosis 874544402 D 72.829 chronic from chronic steriod use - improving. 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 [id number] GEETA KWOK [address] [place] [address] 05/11/2024 13:31:15 05/12/2024 14:06:40 Type 2 diabetes mellitus 52011784 E11.9 BS borderline low in am and at lunchStill on prednisone taper.Cont inue trulicity and jardiance and SSIReduce lantus to 25 units q HS, continue 35 units in amMonitor closely and adjust meds as needed. Dermal mycosis 36652764 B36.9 Breast folds, buttocksCo ntinue diflucan and topical antifungal /steroid cream.Keep areas clean and dryMonitor closely. Gastroesop hageal reflux disease without esophagitis 782900516 K21.9 cont omeprazole daily - came in on this doseUnsure of baseline, but will continue this dose for now, mahesh. with higher doses of prednisone .Consider dose taper when more stable and if stays LTC.monito r GI sx Chronic ob structive pulmonary disease 25299766 J44.9 2/2 RSV/Influe nzaDoing betterWean ed off K8Chwrjmfs off prednisone .Doxy completed. Continue nebs and inhalers.C ombivent dose currently 2 inh bid, not typical but will not change as med managed by Pulmonolog ist.Monito r Leukocytosis 026791475 D 72.829 chronic from chronic steriod use - improving. follow labs Essential hypertension 33307878 I10 cont on coreg dailymonit or BP Smoker 96709989 F17.200 reports that she has not smoked in 1 monthnow on nicotine patch 21 mgprovide support for cessation Pressure i njury of coccygeal region of back stage II 5841234208 5811208 L89.152 patient reporting coccyx painfollow ed by wound NPreiterat ed [employer]PER[employer] recommenda tions to Turn, reposition & offload Q2 hours & PRN to aid in wound healing. Encourage appropriat e dietary supplement ation to aid in wound healing. [id number] JOHAN VU NP [facility] [address] [place] [address] 05/12/2024 10:32:45 05/20/2024 10:27:09 Type 2 diabetes mellitus 71429610 E11.9 BS borderline low a few weeks ago, lantus reduced to 35 units q am, 25 units q hs.Remains on trulicity, jardiance, and lispro SSI.BS improved on reduced dose of lantus.Of note, prednisone taper ending 05/15.Pt. will continue to monitor BS at home and adjust insulin as needed. Dermal mycosis 45030986 B36.9 Breast folds, buttocks; now improving. Completed diflucan.M ay continue topical antifungal /steroid cream.Keep areas clean and dryMonitor closely. Gastroesop hageal reflux disease without esophagitis 237149930 K21.9 cont omeprazole daily Chronic ob structive pulmonary disease 64981632 J44.9 2/ RSV/Influe nzaResolve d.Weaned off T8Wipsyfwo off prednisone .Doxy completed. Continue nebs and inhalers.M onitor Leukocytosis 308319839 D 72.829 chronic from chronic steriod use - improving. follow labs as outpt. Hypothyroidism 99910836 E03.9 continue on levothyrox inemonitor tsh prn Coronary arteriosclerosis 85357690 I25.10 HX of HLD, HTNon statin, coreg, ASAmonitor for cardiac sx Essential hypertension 53271093 I10 cont on coreg dailymonit or BP Gout 07977726 M10.9 cont allopurino l dailyfollo w uric acid level prn Smoker 66924691 F17.200 reports that she has not smoked in 1 monthnow on nicotine patch 21 mgprovide support for cessation - wishes to continue to not smoke upon d/c home. Hyperlipidemia 59402407 E78.5 cont atorvastat inmonitor labs prn Allergic rhinitis 740253 04 J30.9 cont on fluticason e, montelukas t, cetirizine Low back pain 650144070 M54.50 cont lido patch qdpercocet prnon robaxin for neuropathy as well Health Concerns Section Related Observation LastModified by Organization Detai ls LastModified Time None Recorded Concern Status LastModified by Organization Details LastModified Time None Recorded Advance Directives Directive Y: Payers Encounter Date Sequence Insurance Name Policy Number Policy Mendez Covered Member ID Mendez Member ID Guarantor Name 05/03/2024 1 [employer] - DOS ON OR AFTER 2022 - MEDICARE ADVANTAGE [place] (MEDICARE REPLACEMENT/ADV ANTAGE - PPO) Marita Lawrence [id number] Marita Lawrence 05/04/2024 1 [facility] - DOS ON OR AFTER 2022 - MEDICARE [place]VANTAGE [place] (MEDICARE [place]ACEMENT/ADV ANTAGE - PPO) Marita Lawrence [id number] Marita Lawrence 05/05/2024 1 [facility] - DOS ON OR AFTER 2022 - MEDICARE [place]AGE [place]/ADV ANTAGE - PPO) Marita Lawrence [id number] Marita Lawrence 05/11/2024 1 [employer] - DOS ON OR AFTER 2022 - MEDIC[place]AGE [place] ([place]/ADV ANTAGE - PPO) Marita Lawrence [id number] Marita Lawrence 05/12/2024 1 [facility] - DOS ON OR AFTER 2022 - [place]IC[place]AGE [place] ([place]/ADV ANTAGE - PPO) Marita Lawrence [id number] Marita Lawrence Notes Date Note Type Note [...] influenza also on 04[facility]14. [facility] and hypoxia.She had an elevated WBC attributed to steroid use.CXR was non-acute.She was tachycardic and needing oximask to maintain sats >90%.She was restarted on solumedrol and doxy, continued on duonebs, and usual inhalers.Seen by pulmonary who recommended higher dose and more prolonged steroids.She was able to be weaned back to home level of O2, 2L by [place], but remained weak and wastransferred here for [...] with post-op hypothyroidism. Chiquita Guardado MD [address], [address], [place], [address], [email or web address] 05/14/2024 17:33:09 5 text/html Marita is [...] dot and spread quickly. GEETA KWOK [address], [address], [place], [address], [email or web address] 05/13/2024 16:49:37 5 text/html Marita is seen [...] snack. She is requesting to see the secondary market manager.She then shows me the rash on [...] with post-op hypothyroidism. JOHAN VU NP [address], [address], [place], [address], [facility] 05/05/2024 12:42:06 5 text/html This is a [...] is nio acute concerns. GEETA KWOK [address], [address], [place], [address], [facility] 05/11/2024 16:45:23 5 text/html Marita is [...] with post-op hypothyroidism. JOHAN VU NP [address], [address], [place], [address], [facility] 05/20/2024 10:22:41 OBGyn Episode No OBEpisode recorded.
--- OUTSIDE RECORDS SUMMARY | 2024-08-16 07:40 | XMS_ITS | Encounter Summary ---
Author Organization [employer] Address [address] [place] [address] Care Team Providers Care Taxi Dancer Name Role Phone Name, Bobby GRADY Primary Care Provider [phone] Encounter Details Date Type Department Care Team (Latest Contact Info) Description 04/29/[address] [facility] - Main Lab [address] [place] [address] Yared Weaver MD [address] [place] [address], [phone] Atherosclerotic heart disease of [place] coronary artery without angina pectoris Social History [...] 5:10 AM EST Atherosclerotic heart disease of [place] coronary artery without angina pectoris BASIC METABOLIC PANEL Routine 04/29/2024 5:10 AM EST Atherosclerotic heart disease of [place] coronary artery without angina pectoris documented in this encounter Results * (ABNORMAL) Basic metabolic panel (04/29/2024 5:10 AM EST) Sodium 143 133 - 145 mmol/L LAB CHEMISTRY METHOD 04/29/2024 11:20 AM EST [facility] Potassium 4.5 3.5 - 5.5 mmol/L LAB CHEMISTRY METHOD 04/29/2024 11:20 AM [facility] Chloride 106 96 - 110 mmol/L LAB CHEMISTRY METHOD 04/29/2024 11:20 AM [facility] CO2 31 21 - 32 mmol/L LAB CHEMISTRY METHOD 04/29/2024 11:20 AM [facility] Anion Gap 6 3 - 11 LAB CHEMISTRY METHOD 04/29/2024 11:20 AM [facility] Glucose 97 70 - 100 mg/dL LAB CHEMISTRY METHOD 04/29/2024 11:20 AM [facility] BUN 34(H) 5 - 25 mg/dL LAB CHEMISTRY METHOD 04/29/2024 11:20 AM [facility] Creatinine 0.80 0.50 - 1.10 mg/dL LAB CHEMISTRY METHOD 04/29/2024 11:20 AM [facility] LAB eGFR 82 >=60 mL/min/1. 73m2 LAB CHEMISTRY METHOD 04/29/2024 11:20 AM [facility] LAB Comment:Calculation based on the??Chronic Kidney Disease Epidemiology Collaboration (CKD-EPI) equation refit??without adjustment for race. BUN/Creatinine Ratio 42.5 LAB CHEMISTRY METHOD 04/29/2024 11:20 AM [facility] Calcium 7.9(L) 8.5 - 10.5 mg/dL LAB CHEMISTRY METHOD 04/29/2024 11:20 AM [facility] Blood Venous blood specimen / Unknown Venipuncture / Unknown 04/29/2024 5:10 AM EST 04/29/2024 9:30 AM EST us Yared Weaver MD LAB BLOOD ORDERABLES Final Resul t [facility] [address] [place] [address], * (ABNORMAL) Complete blood count (04/29/2024 5:10 AM EST) [facility] Signature WBC 18.2(H) 4.8 - 10.8 K/mcL LAB HEMETOLOGY METHOD 04/29/2024 10:30 AM [facility] RBC 5.30(H) 3.80 - 4.80 M/mcL LAB HEMETOLOGY METHOD 04/29/2024 10:30 AM [facility] Hemoglobin 15.0 11.5 - 16.0 g/dL LAB HEMETOLOGY METHOD 04/29/2024 10:30 AM [facility] Hematocrit 48.0(H) 35.0 - 47.0 % LAB HEMETOLOGY METHOD 04/29/2024 10:30 AM [facility] MCV 90.2 79.0 - 98.0 FL LAB HEMETOLOGY METHOD 04/29/2024 10:30 AM [facility] MCH 28.2 27.0 - 32.0 pcg LAB HEMETOLOGY METHOD 04/29/2024 10:30 AM [facility] MCHC 31.3(L) 32.0 - 37.0 g/dL LAB HEMETOLOGY METHOD 04/29/2024 10:30 AM [facility] RDW 14.7 11.0 - 15.0 % LAB HEMETOLOGY METHOD 04/29/2024 10:30 AM [facility] Platelets 238 130 - 400 K/mcL LAB HEMETOLOGY METHOD 04/29/2024 10:30 AM [facility] MPV 11.8(H) 7.0 - 11.0 FL LAB HEMETOLOGY METHOD 04/29/2024 10:30 AM [facility] NRBC 0.0 <1.0 % LAB HEMETOLOGY METHOD 04/29/2024 10:30 AM [facility] NRBC Absolute 0.00 <0.10 K/mcL LAB HEMETOLOGY METHOD 04/29/2024 10:30 AM EST [facility] Blood Venous blood specimen / Unknown Venipuncture / Unknown 04/29/2024 5:10 AM EST 04/29/2024 9:30 AM EST us Yared Weaver MD LAB BLOOD ORDERABLES Final Resul t [facility] [address] [place] [address], documented in this encounter Visit Diagnoses Diagnosis Atherosclerotic heart disease of [place] coronary artery without angina pectoris documented in this encounter Care Teams Taxi Dancer Relationship Specialty Start Date End Date Name, MD Bobby [address] [place], [place] PCP - General Internal Medicine 04/01/18 documented as of this encounter
--- OUTSIDE RECORDS SUMMARY | 2024-08-16 07:40 | XMS_ITS | Encounter Summary ---
Author Organization [employer] Address [address] [place] [address] [address] [place] [address] Care Team Providers Care Broadcast Operations Director Name Role Phone Name, Bobby GRADY Primary Care Provider Inga Magaña PharmD Unavailable Reason for Visit * Reason Comments Med Refill Encounter Details Date Type Department Care Team (Late st Contact Info) Description 05/15/2022 Refill [facility] [address] [place] [address] Name, MD Bobby [address] [place] [address] Seasonal allergic rhinitis, unspecified trigger (Primary Dx) [...] Info) Description 09/01/2024 11:30 AM EDT Telemedicine [facility] [address] Name, MD [facility] [place] [address] 09/02/2024 1:00 PM EDT Telemedicine [facility] [place] [address] Skye Melton, HODA 11/02/2024 9:30 AM EDT Office Visit [facility] [place] [address] Name, MD [facility] [place] [address] documented as of this encounter Visit Diagnoses Diagnosis Seasonal allergic rhinitis, unspecified trigger- Primary documented in this encounter Additional Health Concerns Assessment Noted Time PHQ-9 Depression Total Score: 0 03/11/20 11:47 AM EST documented as of this encounter Care Teams Broadcast Operations Director Relationship Specialty Start Date End Date Name, MD Bobby [facility] [place] [address] PCP - General Family Medicine 06/01/15 Inga Magaña PharmD [facility] [place] [address] Pharmacist Internal Medicine 01/07/23 09/29/23 [place] 05/13/24 documented as of this encounter
== END 2024-08-16 07:35 | disposition home or self-care (01) ==
LOC: HO.CT 07:34
PROVIDERS: PCP Internal Medicine Geriatric Medicine; Visit Provider Internal Medicine Geriatric Medicine
DX: J44.9 Chronic obstructive pulmonary disease, unspecified (principal); R93.89 Abnormal findings on diagnostic imaging of other specified body structures; Z87.01 Personal history of pneumonia (recurrent)
CPT/HCPCS: 71250

== ENCOUNTER → 2024-08-16 07:36 | Outpatient (BNV) | payer OTHER, SELFPAY | PROVIDERS: PCP Internal Medicine Geriatric Medicine; Visit Provider Nuclear Medicine | DX: R91.8 Other nonspecific abnormal finding of lung field (principal) | CPT/HCPCS: 71250 ==

== ENCOUNTER 2024-09-01 09:56 | Day surgery (SDC) | payer OTHER, SELFPAY ==
--- OUTSIDE RECORDS SUMMARY | 2024-08-23 11:50 | XMS_ITS | Encounter Summary ---
Author Organization [employer] Address [address] [facility] [address] [place] [address] Care Team Providers Care Real Estate Closing Coordinator Name Role Phone Name, Bobby GRADY Primary Care Provider [phone] Inga Magaña PharmD Unavailable [phone] Reason for Visit * Reason Comments Med Change Request Encounter Details Date Type Department Care Team ([facility] st Contact Info) Description 06/09/2023 Refill [facility] [address] [place] [address] Name, MD Bobby [address] [place] [address] Social History Tobacco Use Types Packs/Day Years [...] Info) Description 09/01/2024 11:30 AM EDT Telemedicine [address] [address] NameBobby MD [address] [place] [phone] 09/02/2024 1:00 PM EDT Telemedicine [address] [address] Skye Melton RN 11/02/2024 9:30 AM EDT Office Visit [address] [address] NameBobby MD [address] [place] [address] documented as of this encounter Goals Goal Patient Goal Type Associated Problems Recent Progress Patient-Stated? Author Smoking cessation General No Inga aMgaña, PharmD documented as of this encounter Visit Diagnoses Not on filedocumented in this encounter Additional Health Concerns Assessment Noted Time PHQ-9 Depression Total Score: 0 03/11/20 22 11:47 AM EST documented as of this encounter Care Teams Real Estate Closing Coordinator Relationship Specialty Start Date End Date Bobby David MD [address] [place] [address] PCP - General Family Medicine 06/01/15 Inga Magaña, PharmD [address] [place] [phone] Pharmacist Internal Medicine 01/07/23 09/29/23 [place] 05/13/24 documented as of this encounter
[2024-08-30 15:20] VITALS: BMI 27.5
[2024-09-01] VITALS (8 sets, daily range): BP systolic 104–146; BP diastolic 50–80; PULSE 62–80; RESP 12–18; TEMP 36.2–36.5; O2SAT 92–97; BMI 27.1
[2024-09-01 10:11] LABS: Glucose, Whole Blood 230 mg/dL (60-115)
[2024-09-01] MEDS: Lactated Ringers 1,000 ML 100 ML IVCONT (10:21)
--- NOTE | 2024-09-01 10:25 | MHC.SHP ---
Pre-Procedural Eval Section A - 24 Hr Update-Section A only Date of Service: 09/01/24 Changes since office visit: No Cold of Flu in the past 2 weeks, No New Medical Problems, No Changes in Medication and No Patient answered all questions The patient has been examined within 24 hours of the surgical procedure. The History & Physical has been completed within 30 days and I have reviewed it.: No Section B - Complete if H&P > 30 days Chief Complaint: Atelectasis Details of Present Illness: 63 y/o with cough with CT chest with worsening right sided atelectasis Relevant Family History (Specify if Yes): No Relevant Social History: Tobacco Use Present Medications: see Short Stay Collaborative assessment Medical History: Significant History History of Previous Operations: No relevant previous surgery Allergies: Allergies Allergy/AdvReac Type Severity Reaction Status Date / Time HANK Inhibitors Allergy Severe ANGIO Verified 08/11/24 10:02 [HANK INHIBITORS] EDEMA enalapril Allergy Severe Anaphylaxis Verified 08/11/24 10:02 erythromycin base Allergy Severe HIVES ALL Verified 08/11/24 10:02 [ERYTHROMYCIN BASE] OVER metformin Allergy Unknown Verified 08/11/24 10:02 hydromorphone [From DILAUDID] AdvReac Severe TINGLING, Verified 08/11/24 10:02 PT DOES NOT LIKE THE FEELING MED GIVES HER Review of Systems Sugical H&P ROS: Negative: Constitution, Cardiovascular, Psychiatric, Hem-Onc, Allergic/Immunologic, Gastrointestinal and Genitourinary and Yes, Specify: Respiratory (cough) Exam Surgical H&P Exam: Normal: HEENT, Normal: Heart, Normal: Lungs, Normal: Extremities, Normal: Abdomen, Normal: Skin and Normal: Neurological Plan Diagnosis/Plan: Change (Right sided atelectasis, needs bronchoscopy) I have reviewed the history and physical and performed a pertinent physical examination on my patient. No changes have occurred unless specified. Time Spent With Patient Time: Total time managing care of this patient today ____ minutes.
--- NOTE | 2024-09-01 12:04 | P.CONAN_ITS ---
Documented by User: Demetria Potter NP 08/31/24 09:58 HPI - Anesthesia Eval Consult details Narrative: 63yo F for Bronchoscopy Fiberoptic Follows [facility] cardiology for: CAD s/p inferior STEMI with ETHEL 2018 Ischemic CMP, LVEF 45%, recovered RV function Stable, euvolemic at 05/2024 office visit Anesthesia Pre-Procedure Meds Is the patient on any of the following meds?: GLP1/DPP4 and SGLT2 Inhib PMFSH Active Problems Active Problems: All Active Problems Numbness and tingling in left hand (Acute) Ulnar neuropathy at elbow of left upper extremity (Acute) Cubital tunnel syndrome on left (Acute) Left elbow pain (Acute) Acute upper back pain (Acute) Muscle spasms of neck (Acute) Cervical spondylosis (Acute) Cervical radiculitis (Acute) Pre-op chest exam (Acute) Positive blood culture (Acute) Right radial head fracture (Acute) Fracture of third metatarsal bone of right foot (Acute) Chronic painful diabetic neuropathy (Acute) Microscopic hematuria (Acute) Bilateral nephrolithiasis (Acute) Hyperglycemia (Acute) Diabetes (Acute) COVID-19 (Acute) Pneumonia (Acute) Increased anion gap metabolic acidosis (Acute) Tobacco abuse (Acute) CAD (coronary artery disease) (Acute) CHF (congestive heart failure) (Acute) Sacroiliac joint dysfunction of left side (Acute) Lumbar spondylosis (Acute) Lumbar radiculopathy (Acute) Lumbar post-laminectomy syndrome (Acute) Muscle spasm of back (Acute) MCKAY (obstructive sleep apnea) (Acute) Allergies (Acute) Cough (Acute) Hypothyroidism, postsurgical (Acute) Tubular adenoma (Acute) Irritable bowel syndrome (Acute) Hyperthyroidism (Acute) Smoker (Acute) COPD exacerbation (Acute) Hypoxia (Acute) Lesion of bronchus (Acute) Tracheal anomaly (Acute) Multinodular goiter (Acute) Vitamin D deficiency (Acute) Atelectasis (Acute) Subclinical hyperthyroidism (Acute) Goiter (Acute) Pneumonia (Acute) Pulmonary nodules (Acute) COPD (chronic obstructive pulmonary disease) (Acute) Past Medical History Medical History (Updated 08/30/24 @ 15:30 by Jaki Griffin RN) History of RSV infection (03/2024) Hx of influenza (03/2024) Influenza A Asthma-COPD overlap syndrome Allergies History of back pain History of neuropathy Smokes tobacco daily Opioid dependence Nephrolithiasis Hyperlipidemia HTN (hypertension) Cardiomyopathy Myocardial infarction CAD (coronary artery disease) Cough Hypothyroidism, postsurgical Tubular adenoma Diabetes MCKAY (obstructive sleep apnea) Irritable bowel syndrome Hyperthyroidism Polycythemia Smoker Hypoxia COPD exacerbation Lesion of bronchus Tracheal anomaly Multinodular goiter Vitamin D deficiency Atelectasis Subclinical hyperthyroidism Goiter Pneumonia Pulmonary nodules COPD (chronic obstructive pulmonary disease) Family History Family History Father No problems noted. Mother No problems noted. Paternal Aunt Diabetes Family history of problems with anesthesia: No Surgical History Surgical History History of coronary artery stent placement Hx of thyroidectomy History of thyroid surgery History of esophagogastroduodenoscopy (EGD) Hx of colonoscopy History of back surgery History of ureterostomy S/P lumpectomy, right breast History of cholecystectomy History of tonsillectomy History of Problems with Anesthesia: No Social History Social History Household Members: Significant Other Housing: House Are you a primary aged or disabled care worker to a significant other at home: No Do you presently have visiting nurse or other home services: No Alcohol intake: never Comment: declines alarm, shreyaadt to walk short distance to commode Patient Tobacco Use Status: Current everyday Tobacco user Tobacco use type: Cigarette Cigarette Packs Per Day: 0.5 Cigarettes Per Day: 10 Smoked in Last 30 Days: Yes e-Cigarette/Vaping Use: Never Used Second Hand Smoke Exposure: Yes Use of substances other than those prescribed or required for medical reasons: Yes Substance Use Type: Other Substance Use Type Other:: smokes CBD Substance Use Frequency: Occasionally Have you been hit, kicked, punched, or otherwise hurt by someone within the past year? If so, by whom?: No Are you DNR?: No Advance Directives: Yes Advance Directives Information Provided: No Advance Directives on File: Yes Advance Directives Date on File: 01/24/21 Poor oral hygiene: Yes (no teeth) service: No Current occupational status: disabled Meds Allergies Allergy/AdvReac Type Severity Reaction Status Date / Time HANK Inhibitors Allergy Severe ANGIO Verified 08/11/24 10:02 [HANK INHIBITORS] EDEMA enalapril Allergy Severe Anaphylaxis Verified 08/11/24 10:02 erythromycin base Allergy Severe HIVES ALL Verified 08/11/24 10:02 [ERYTHROMYCIN BASE] OVER metformin Allergy Unknown Verified 08/11/24 10:02 hydromorphone [From DILAUDID] AdvReac Severe TINGLING, Verified 08/11/24 10:02 PT DOES NOT LIKE THE FEELING MED GIVES HER Home Medications ?Medication ?Instructions ?Recorded ?Confirmed ?Last Taken ?Type aspirin 81 mg tablet,delayed 81 mg PO BEDTIME 12/24/19 08/30/24 08/29/24 History release atorvastatin 80 mg tablet 80 mg PO BEDTIME 12/24/19 08/30/24 04/20/24 History carvedilol 6.25 mg tablet 6.25 mg PO BID 12/24/19 08/30/24 09/01/24 History cetirizine 10 mg tablet 10 mg PO DAILY PRN allergies 12/24/19 08/30/24 04/07/24 History montelukast 10 mg tablet 10 mg PO BEDTIME 12/24/19 08/30/24 09/01/24 History omeprazole 20 mg capsule,delayed 20 mg PO BID@0630,1630 12/24/19 08/30/24 09/01/24 History release docusate sodium 100 mg capsule 1 cap PO BEDTIME Constipation 01/24/21 08/30/24 04/20/24 History blood sugar diagnostic (FreeStyle #10 ea 10/07/21 05/31/24 10/20/22 09:00 History Lite Strips) lancets 33 gauge (TRUEplus Lancets) #100 ea 10/07/21 05/31/24 10/20/22 09:00 History naloxone 4 mg/actuation nasal spray 1 spray intranasal ONCE PRN Opioid 10/07/21 08/30/24 01/29/23 History Overdose oxycodone-acetaminophen 7.5 mg-325 1 tab PO Q6H PRN severe pain 06/23/22 08/30/24 09/01/24 History mg tablet sennosides 8.6 mg tablet (senna) 8.6 mg PO BID Constipation 01/30/23 08/30/24 04/20/24 History nebulizers 06/03/23 05/31/24 Unknown History empagliflozin 10 mg tablet 10 mg PO DAILY 02/10/24 08/30/24 08/26/24 History (Jardiance) methocarbamol 750 mg tablet 750 mg PO Q8H PRN neuropathy 03/03/24 05/31/24 04/20/24 History insulin glargine 100 unit/mL (3 35 unit subcut BID 04/07/24 08/30/24 04/20/24 History mL) subcutaneous pen (Lantus Solostar U-100 Insulin) levothyroxine 112 mcg tablet 112 mcg PO DAILY@0600 04/07/24 08/30/24 04/20/24 History pregabalin 100 mg capsule 100 mg PO TID 04/07/24 08/30/24 04/20/24 History dulaglutide 1.5 mg/0.5 mL 1.5 mg subcut WE@0900 04/21/24 08/30/24 08/19/24 History subcutaneous pen injector (Trulicity) dupilumab 300 mg/2 mL subcutaneous 300 mg subcut Q2W 04/21/24 08/30/24 04/20/24 History pen injector (Dupixent) fluticasone fur. 100 mcg-umeclid 1 ea inhalation DAILY 04/21/24 08/30/24 09/01/24 History 62.5 mcg-vilant 25 mcg inhalat.powder (Trelegy Ellipta) fluticasone propionate 50 1 spray intranasal DAILY PRN 04/21/24 08/30/24 09/01/24 History mcg/actuation nasal Congestion spray,suspension insulin aspart U-100 100 unit/mL 6 - 10 sliding scale dose subcut 04/21/24 08/30/24 04/20/24 History (3 mL) subcutaneous pen (Novolog TIDAC FlexPen U-100 Insulin aspart) ipratropium 0.5 mg-albuterol 3 mg 3 ml inhalation QID PRN Shortness 04/21/24 08/30/24 Unknown History (2.5 mg base)/3 mL nebulization Of Breath Or Wheezing soln ipratropium 20 mcg-albuterol 100 2 puff inhalation BID 04/21/24 08/30/24 09/01/24 History mcg/actuation mist for inhalation (Combivent Respimat) pyridoxine (vitamin B6) 50 mg 50 mg PO DAILY 08/11/24 08/30/24 Unknown History tablet Exam Height,Weight and Vital Signs: Height 5 ft 5 in Weight 74.843 kg Pertinent Lab Results Pertinent Lab Results: Laboratory Tests 04/27/24 06:12 WBC 15.9 H Hgb 15.2 Hct 45.6 Plt Count 240 Sodium 140 Potassium 4.0 Chloride 109 H Carbon Dioxide 23 BUN 38 H Creatinine 0.70 Narrative Narrative: EKG 05/2024 Ventricular Rate: 87 BPM Atrial Rate: 87 BPM P-R Interval: 144 ms QRS Duration: 90 ms Q-T Interval: 382 ms QTC Calculation(Bazett): 459 ms P [place]: 54 degrees R [place]: -50 degrees T [place]: 14 degrees Normal sinus rhythm Left axis deviation Possible Inferior infarct , age undetermined Abnormal ECG When compared with ECG of 25-Dec-2022 13:04, QRS axis Shifted left Confirmed by JOSIAH GRANT ([id number]) on 06/22/2024 5:18:51 PM ECHO 2022 Summary 1. The left ventricular size is normal. Left ventricular wall thickness is normal. The LV systolic function is mildly depressed. The left ventricular ejection fraction is 45%. The basal inferior and inferoseptal sheppard are akinetic. LV filling pressures are elevated. Grade II, moderate diastolic dysfunction. 2. The right ventricle is normal in size and function. An accurate pulmonary artery pressure could not be obtained. 3. Biatrial size is normal. 4. There is no hemodynamically significant valvular disease. Comparison Comparison is made to the study of October 18, 2020. There is no significant change. Assessment and Plan Assessment Anesthesia Assessment: Chart Reviewed Final Anesthetic Review Family History of Problems with Anesthesia: No History of Problems with Anesthesia: No Documented by User: Veronica Cole DO 09/01/24 12:05 HPI - Anesthesia Eval Anesthesia Pre-Procedure Meds Is the patient on any of the following meds?: GLP1/DPP4 and SGLT2 Inhib [facility] Past Medical History Medical History (Updated 08/30/24 @ 15:30 by Jaki Griffin RN) History of RSV infection (03/2024) Hx of influenza (03/2024) Influenza A Asthma-COPD overlap syndrome Allergies History of back pain History of neuropathy Smokes tobacco daily Opioid dependence Nephrolithiasis Hyperlipidemia HTN (hypertension) Cardiomyopathy Myocardial infarction CAD (coronary artery disease) Cough Hypothyroidism, postsurgical Tubular adenoma Diabetes MCKAY (obstructive sleep apnea) Irritable bowel syndrome Hyperthyroidism Polycythemia Smoker Hypoxia COPD exacerbation Lesion of bronchus Tracheal anomaly Multinodular goiter Vitamin D deficiency Atelectasis Subclinical hyperthyroidism Goiter Pneumonia Pulmonary nodules COPD (chronic obstructive pulmonary disease) Family History Family History Father No problems noted. Mother No problems noted. Paternal Aunt Diabetes Family history of problems with anesthesia: No Surgical History Surgical History History of coronary artery stent placement Hx of thyroidectomy History of thyroid surgery History of esophagogastroduodenoscopy (EGD) Hx of colonoscopy History of back surgery History of ureterostomy S/P lumpectomy, right breast History of cholecystectomy History of tonsillectomy History of Problems with Anesthesia: No Social History Social History Household Members: Significant Other Housing: House Are you a primary aged or disabled care worker to a significant other at home: No Do you presently have visiting nurse or other home services: No Alcohol intake: never Comment: declines alarm, steadt to walk short distance to commode Patient Tobacco Use Status: Current everyday Tobacco user Tobacco use type: Cigarette Cigarette Packs Per Day: 0.5 Cigarettes Per Day: 10 Smoked in Last 30 Days: Yes e-Cigarette/Vaping Use: Never Used Second Hand Smoke Exposure: Yes Use of substances other than those prescribed or required for medical reasons: Yes Substance Use Type: Other Substance Use Type Other:: smokes CBD Substance Use Frequency: Occasionally Have you been hit, kicked, punched, or otherwise hurt by someone within the past year? If so, by whom?: No Are you DNR?: No Advance Directives: Yes Advance Directives Information Provided: No Advance Directives on File: Yes Advance Directives Date on File: 01/24/21 Poor oral hygiene: Yes (no teeth) service: No Current occupational status: disabled Meds Allergies Allergy/AdvReac Type Severity Reaction Status Date / Time HANK Inhibitors Allergy Severe ANGIO Verified 08/11/24 10:02 [HANK INHIBITORS] EDEMA enalapril Allergy Severe Anaphylaxis Verified 08/11/24 10:02 erythromycin base Allergy Severe HIVES ALL Verified 08/11/24 10:02 [ERYTHROMYCIN BASE] OVER metformin Allergy Unknown Verified 08/11/24 10:02 hydromorphone [From DILAUDID] AdvReac Severe TINGLING, Verified 08/11/24 10:02 PT DOES NOT LIKE THE FEELING MED GIVES HER Home Medications ?Medication ?Instructions ?Recorded ?Confirmed ?Last Taken ?Type aspirin 81 mg tablet,delayed 81 mg PO BEDTIME 12/24/19 08/30/24 08/29/24 History release atorvastatin 80 mg tablet 80 mg PO BEDTIME 12/24/19 08/30/24 04/20/24 History carvedilol 6.25 mg tablet 6.25 mg PO BID 12/24/19 08/30/24 09/01/24 History cetirizine 10 mg tablet 10 mg PO DAILY PRN allergies 12/24/19 08/30/24 04/07/24 History montelukast 10 mg tablet 10 mg PO BEDTIME 12/24/19 08/30/24 09/01/24 History omeprazole 20 mg capsule,delayed 20 mg PO BID@0630,1630 12/24/19 08/30/24 09/01/24 History release docusate sodium 100 mg capsule 1 cap PO BEDTIME Constipation 01/24/21 08/30/24 04/20/24 History blood sugar diagnostic (FreeStyle #10 ea 10/07/21 05/31/24 10/20/22 09:00 History Lite Strips) lancets 33 gauge (TRUEplus Lancets) #100 ea 10/07/21 05/31/24 10/20/22 09:00 History naloxone 4 mg/actuation nasal spray 1 spray intranasal ONCE PRN Opioid 10/07/21 08/30/24 01/29/23 History Overdose oxycodone-acetaminophen 7.5 mg-325 1 tab PO Q6H PRN severe pain 06/23/22 08/30/24 09/01/24 History mg tablet sennosides 8.6 mg tablet (senna) 8.6 mg PO BID Constipation 01/30/23 08/30/24 04/20/24 History nebulizers 06/03/23 05/31/24 Unknown History empagliflozin 10 mg tablet 10 mg PO DAILY 02/10/24 08/30/24 08/26/24 History (Jardiance) methocarbamol 750 mg tablet 750 mg PO Q8H PRN neuropathy 03/03/24 05/31/24 04/20/24 History insulin glargine 100 unit/mL (3 35 unit subcut BID 04/07/24 08/30/24 04/20/24 History mL) subcutaneous pen (Lantus Solostar U-100 Insulin) levothyroxine 112 mcg tablet 112 mcg PO DAILY@0600 04/07/24 08/30/24 04/20/24 History pregabalin 100 mg capsule 100 mg PO TID 04/07/24 08/30/24 04/20/24 History dulaglutide 1.5 mg/0.5 mL 1.5 mg subcut WE@0900 04/21/24 08/30/24 08/19/24 History subcutaneous pen injector (Trulicity) dupilumab 300 mg/2 mL subcutaneous 300 mg subcut Q2W 04/21/24 08/30/24 04/20/24 History pen injector (Dupixent) fluticasone fur. 100 mcg-umeclid 1 ea inhalation DAILY 04/21/24 08/30/24 09/01/24 History 62.5 mcg-vilant 25 mcg inhalat.powder (Trelegy Ellipta) fluticasone propionate 50 1 spray intranasal DAILY PRN 04/21/24 08/30/24 09/01/24 History mcg/actuation nasal Congestion spray,suspension insulin aspart U-100 100 unit/mL 6 - 10 sliding scale dose subcut 04/21/24 08/30/24 04/20/24 History (3 mL) subcutaneous pen (Novolog TIDAC FlexPen U-100 Insulin aspart) ipratropium 0.5 mg-albuterol 3 mg 3 ml inhalation QID PRN Shortness 04/21/24 08/30/24 Unknown History (2.5 mg base)/3 mL nebulization Of Breath Or Wheezing soln ipratropium 20 mcg-albuterol 100 2 puff inhalation BID 04/21/24 08/30/24 History mcg/actuation mist for inhalation (Combivent Respimat) pyridoxine (vitamin B6) 50 mg 50 mg PO DAILY 08/11/24 08/30/24 Unknown History tablet Exam Exam Date and Time: 09/01/24 1200 Height,Weight and Vital Signs: Height 5 ft 5 in Weight 74.843 kg Vital Signs Temperature 97.2 F 09/01/24 09:59 Pulse Rate 80 09/01/24 09:59 Respiratory Rate 18 09/01/24 09:59 Blood Pressure 112/50 L 09/01/24 09:59 Pulse Oximetry 94 09/01/24 09:59 Oxygen Delivery Method Room Air 09/01/24 09:59 Temperature 97.2 F 09/01/24 09:59 Pulse Rate 80 09/01/24 09:59 Respiratory Rate 18 09/01/24 09:59 Blood Pressure 112/50 L 09/01/24 09:59 Pulse Oximetry 94 09/01/24 09:59 Oxygen Delivery Method Room Air 09/01/24 09:59 Airway Mallampati Class: I TM Dist: >3cm Neck ROM: Full Loose/Missing/Broken Teeth: Yes (edentulous) Heart: S1S2 Lungs: Diminished bilaterally Assessment and Plan Assessment Anesthesia Assessment: Anesthesia Plan Discussed and Chart Reviewed Final Anesthetic Review Family History of Problems with Anesthesia: No History of Problems with Anesthesia: No NPO: Yes ASA Class: III Final Preanesthetic Review: No Changes in Pt Med Stat, Meds/Allgs Chart Reviewed, Consent Obtained/Reviewed and Anes Risks/Benef Reviewed Patient Risk: Intermediate Procedure Risk: Intermediate Anesthetic Plan Anesthetic Plan: GA and Agree w/ Assess. and Plan Disposition: Standard PACU
[2024-09-01] MEDS: Haloperidol Lactate 5 MG/ML VIAL 1 MG IVPUSH (13:23)
--- NOTE | 2024-09-01 16:09 | PM.OP ---
Brief Operative Note Date of Service: 09/01/24 Pre-op diagnosis: RML atelectasis Post-op diagnosis: other (RML atelectasis, RLL polypoid lesion, PETER endobronchial lesion, mucus plgging) Procedure: Bronchosopy with washings, brushings, biopsies and therapeutic cleaning Implants: Surgeon: Fidel White MD Anesthesia: GLMA Was an Cadmium Liquor Maker used for this Procedure?: No Estimated blood loss (mL): 1 Pathology: other (RLL, PETER) Condition: stable Disposition: same day
--- NOTE | 2024-09-02 01:49 | OP_ITS ---
DATE OF SERVICE: 09/01/2024 SURGEON: Fidel White MD PREOPERATIVE DIAGNOSIS: Atelectasis. POSTOPERATIVE DIAGNOSIS: PROCEDURE PERFORMED: ESTIMATED BLOOD LOSS: COMPLICATIONS: ANESTHESIA: LMA. ASSISTANTS: SPECIMENS: ASA CLASSIFICATION: III. POSTOPERATIVE DIAGNOSES: Atelectasis along with mucus plugging, right lower lobe polypoid lesion and left upper lobe endobronchial abnormality. PROCEDURES PERFORMED: Bronchoscopy with washings, brushings, biopsies, and therapeutic cleaning. DESCRIPTION OF PROCEDURE: After the patient was adequately sedated and LMA in place, the flexible digital bronchoscope was inserted with the LMA to level of the larynx. The vocal cord is more symmetric into the midline. Patient did have some inflammation in the larynx and some mucus around the larynx as well. After instilling lidocaine, the bronchoscope was navigated to the trachea. Tracheal mucosa appeared normal. I quickly could visualize significant amount of mucus burden in the right mainstem bronchus, partially plugging the airway about 80%. The patient had addition of lidocaine. The bronchoscope was navigated to the entire tracheobronchial tree, which was examined up to the segmental level. She had addition of mucus burden in the right upper lobe, the right middle lobe, and also in the left upper lobe area and the left mainstem bronchus. Therapeutic cleaning was provided. A microscopic and also cytologic brushes introduced into the right middle lobe where she has the abnormalities in the CAT scan. The brushes were sent to the appropriate location. Bronchial washings were collected. Using forceps, initially went after the right upper lobe polypoid lesion and that was sent separately pathology in formalin and then in the left side the left upper lobe area, there appears to be some mucus that was removed and once the mucus was removed, there was a very erythematous area which had a purplish color suggesting vascular in nature. It is difficult to differentiate between the erythema, please refer to the picture. We initially did some biopsies in the periphery in case it was vascular. Then afterwards, we were able to do some biopsies on the actual anomaly without any evidence of any significant bleeding. Instilled one ampule of epinephrine was introduced into that site to minimize risk of bleeding. After the airways were cleaned and the biopsies were completed, brushes were done. The bronchoscope was then removed. The total endoscopic time approximately 12 minutes. Patient tolerated the procedure well. Vital signs were stable throughout the procedure. No complications and the patient went home. MASTER CONTROL ENGINEER: None. MD YASMEEN Fernandes/ELVIS / [id number]
== END 2024-09-01 14:04 | disposition home or self-care (01) ==
PROVIDERS: PCP Internal Medicine Geriatric Medicine; Visit Provider Hospitalist
PROC: 0BJ08ZZ Inspection of Tracheobronchial Tree, Via Natural or Artificial Opening Endoscopic (ICD-10-PCS; CPT 31622; principal; 2024-09-01 11:30)
DX: J98.11 Atelectasis (principal); J98.09 Other diseases of bronchus, not elsewhere classified; J44.9 Chronic obstructive pulmonary disease, unspecified; R05.3 Chronic cough; R19.8 Other specified symptoms and signs involving the digestive system and abdomen; Z87.01 Personal history of pneumonia (recurrent); I10 Essential (primary) hypertension; I42.9 Cardiomyopathy, unspecified; I25.2 Old myocardial infarction; I25.10 Atherosclerotic heart disease of native coronary artery without angina pectoris; Z95.5 Presence of coronary angioplasty implant and graft; E78.5 Hyperlipidemia, unspecified; E11.9 Type 2 diabetes mellitus without complications; D75.1 Secondary polycythemia; G47.33 Obstructive sleep apnea (adult) (pediatric); Z79.51 Long term (current) use of inhaled steroids; Z79.52 Long term (current) use of systemic steroids; Z79.82 Long term (current) use of aspirin; Z79.84 Long term (current) use of oral hypoglycemic drugs; Z79.85 Long-term (current) use of injectable non-insulin antidiabetic drugs; Z79.899 Other long term (current) drug therapy; Z88.1 Allergy status to other antibiotic agents; Z88.8 Allergy status to other drugs, medicaments and biological substances; Z98.890 Other specified postprocedural states; Z87.891 Personal history of nicotine dependence
CPT/HCPCS: 31623; 31625; 82947; 87070; 87102; 87116; 87205; 87206; 88112; 88305; J0171; J1100; J1630; J2003; J2371; J2405; J2704; J3010

== ENCOUNTER → 2024-09-01 09:56 | Outpatient (BNV) | payer OTHER, SELFPAY | PROVIDERS: PCP Internal Medicine Geriatric Medicine; Visit Provider Hospitalist | DX: J98.4 Other disorders of lung (principal) | CPT/HCPCS: 31623; 31628; 31632 ==

== ENCOUNTER 2024-09-15 09:18 | Outpatient (AMB) | payer OTHER, SELFPAY ==
--- NOTE | 2024-09-15 09:22 | A.OFFVIS_ITS ---
Vital Signs 09/15/24 09:23 Height 5 ft 5 in Weight 166 lb 7.184 oz BMI 27.7 BP 100/60 Blood Pressure Location Lt brachial Position Sitting Pulse 85 Pulse Source Pulse Oximeter Pulse Oximetry (%) 96 Oxygen Delivery Method Room Air Intake Visit Reasons: S/p bronchoscopy Director Of Social Work Required: No Allergies HANK Inhibitors (HANK INHIBITORS) Allergy (Severe, Verified 09/15/24 09:25) ANGIO EDEMA enalapril Allergy (Severe, Verified 09/15/24 09:25) Anaphylaxis erythromycin base (ERYTHROMYCIN BASE) Allergy (Severe, Verified 09/15/24 09:25) HIVES ALL OVER metformin Allergy (Verified 09/15/24 09:25) Unknown hydromorphone (From DILAUDID) Adverse Reaction (Severe, Verified 09/15/24 09:25) TINGLING, PT DOES NOT LIKE THE FEELING MED GIVES HER HPI Comments Details: The patient is a 63-year-old woman with a known history of COPD and former smoker. She has had multiple hospitalizations for her COPD exacerbations. Also requiring multiple prednisone tapers in currently on chronic prednisone 5 mg daily. She was evaluated in the hospital back in April and in July. She did have chest x-rays demonstrating bilateral hazy opacities. On repeat x-rays from October 2019 it appeared that she still has a persistent opacity in the right infrahilar area. Therefore, CT scan of the chest is warranted. The patient is no longer smoking that she quit 2 years ago. However, she still exposed to secondhand smoke. She continues use her nebulizer 1 or twice a day. And she continues to use her respiratory regimen with partial resolution of her symptoms. She does complaint of shortness of breath [id number] severity with activity. And she also complains of cough usually productive in nature with either wider yellowish sputum. In the office we did have her go for 6 minutes walk test. She was able to ambulate 700 ft. Her Hillary score was 7/10 suggesting that she was in the dyspneic. Her pulse ox was indeed reassuring 94-95% throughout the ambulation. 01/24/2022 the patient is here for a pulmonary follow-up visit. Since we last spoke she has had a tough few weeks. Beginning December she started developing worsening respiratory symptoms with cough. Ultimately now her cough has become more productive greenish in color. During the last time I saw her back in the springtime she did have a COPD exacerbation requiring antibiotics and prednisone. Now with her symptoms getting worse she was able to take 20 mg of prednisone that she had and she did feel little better. She did have a CT scan of the chest sometime in the beginning of December demonstrating areas of ground- glass opacities. It is likely that she possibly had a lower respiratory viral infection and ultimately resulted in a postviral bacterial infection. She continues use her nebulizers. On examination she does have some wheezing and rhonchi. 07/25/2022 the patient is here for pulmonary follow-up visit. Since we last spoke patient ended up going to the [facility] with COPD exacerbation. She had acute respiratory failure home. She was treated for about 3-4 days since she was released. The patient had a chest x-ray demonstrating atelectasis. She was able to wean off the oxygen when she went home. Unfortunately she continues to smoke cigarettes. She also has issues with hyperparathyroidism and she has lost significant amount of weight. She recently saw her primary care doctor was placed on prednisone for COPD exacerbation. She is bringing up some mucus although is clear. The patient has allergies to antibiotics including macrolides. We did go for brief walking oximetry and she did very well maintaining a pulse ox noted. 11/24/2022 the patient is here for pulmonary follow-up visit. Overall the patient has been losing weight. She was diagnosed with apparently Lori disease, hyperthyroidism. She needs to undergo surgery. The patient is here for preoperative evaluation. She continues on the Trelegy inhaler which has been affecting beneficial. She has not required any additional prednisone. She does take 5 mg daily. She recently had a fall and she factor multiple bones but she healed okay which is reassuring. She continues to smoke unfortunately. She is trying to cut down before surgery. She did do well with Chantix in the past she quit smoking for 3 years on it. Then she tried again and cause severe nausea and vomiting and she had to stop it. I do believe that she should restarted or consider a 3rd course possibly after surgery. We did have her undergo pulmonary function studies spirometry in the office. It appears that she does have a severe obstruction consistent with severe COPD. Therefore explained to the patient that she is high risk for perioperative pulmonary comp lications which include COPD exacerbations, atelectasis, hypoxia, pneumonia and prolonged mechanical ventilation. At least a pulmonary standpoint the patient is medically optimize. The patient is able to proceed with anesthesia and surgery understanding that she is high risk for these potential complications. 09/17/2023 the patient is here for a pulmonary follow-up visit overall the patient doing fairly well. She did have to call the dispatch because she was having difficulty breathing. She was given a short course of prednisone and now back to her based on prednisone 5 mg. She states that after her thyroid surgery back in the fall of 2022 her breathing has not been complete normal. She has had some just increased work of breathing but at this point is gotten better. Will continue to monitor her progress although right now her breathing is good I do not appreciate any stridor and she does not have any wheezing on examination. Therefore her respiratory therapy is stable. She is having issues with kidney stones. The patient is scheduled to undergo lithotripsy at this point. She will need to be under anesthesia. She does have increased risk for perioperative pulmonary complications due to her COPD and her chronic steroids but at this point she is medically optimize and is able to proceeding consent for anesthesia and surgery. We did review her chest x-ray that she had back in March 2023 demonstrating no acute disease which is reassuring. She is scheduled for CT scan of the chest because will monitoring closely pulmonary nodules in her lung cancer screening. Will plan to follow-up in 6 months with pulmonary function studies to assess her flow volume loop. 10/28/2023 the patient is here for a pulmonary follow-up visit. Recently she had to go on a prednisone taper for an asthma flare-up. She is down to her baseline prednisone. Now she is concerned about her sugars being elevated and therefore she may have to hold her orthopedic surgery. She will be seeing her hand surgeon soon. She will have additional blood work. As long she is able to taper off the prednisone and she is on her maintenance therapy and she is doing well she can proceed with anesthesia and surgery. When she completes couple more days of antibiotics. She will let me know how she is doing and if she feels like the symptoms are rebounding then she can be prescribed additional medications then. She needs to quit smoking. I did send the nicotine patch to the pharmacy. We did look at her CT scan of the chest which demonstrates bronchitis and some degree of atelectasis and some minimal emphysema but her lung parenchyma still fairly viable and she quit smoking she can least have normal lung capacity. 02/05/2024 the patient is here for a pulmonary follow-up visit. Overall she is doing a little bit worse. She feels like the allergies are bothering her causing to have worsening cough wheezing chest tightness. She continues to be on maximize respiratory therapy. Unfortunately she continues to smoke cigarettes as well that is hindering her effect of the inhalers. Although she did call the ER with worsening respiratory symptoms back in early December. At that time the patient was found to have a significant degree of eosinophilia of 600. 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 In the meantime she knows she needs to quit smoking in order to allow the therapy to work. The patient has not been taking part of the lung cancer screening program. She was doing it elsewhere. She has not had a CT scan in some time. I will put a referral in for that. She will continue with the Trelegy inhaler. She does have significant wheezing on examination so therefore I will send her another course of prednisone will be wait for the Dupixent. The patient will also undergo blood work she is concerned for mold allergies. Will go ahead and do additional allergy testing at this time. 05/31/2024 this is a hospital follow-up visit. The patient was admitted to the hospital with RSV and COPD exacerbation and pneumonia. She was treated after prolonged hospital course and then went to rehab. She was oxygen dependent. Now she is participating in the pulmonary rehabilitation program here. She was able to wean off the oxygen which is reassuring. She continues with respiratory therapy with good effect. We did look at her x-rays demonstrating evidence of bronchitis. But now she is doing better. No significant wheezing on exam. She needs to continue with pulmonary rehab. She did complete the program but now will have to continue exercising on her own. In the meantime she did start the Dupixent. The Dupixent therapy has been affecting beneficial. Currently she is still on 5 mg of prednisone which will continue due to the chronicity of the prednisone use. But if she continues to do well will start thinking about decreasing slowly. 09/15/2024 the patient is here for post bronchoscopy evaluation. After the bronchoscopy she started developing some right-sided chest discomfort. Seems to be persistent primarily underneath her breast on the right side. Denies any pl euritic component to it. Does worsen when she uses her arm. The discomfort radiates down to the abdomen although she does not have any abdominal discomfort or complaints. She is still coughing some phlegm but overall better. Her cultures all negative, just with respiratory jeanna. Pathology all negative cytology all negative as well. Although her airways were significantly inflamed with significant mucoid secretions. Please refer to the bronchoscopy report. The appendix indeed reproducible the knee through breast. We did look at her x- ray. Personally by me. I do not see any abnormalities as far as acute issues. She still has the opacity of the right middle lobe areas suggesting the atelectasis. She did have a lot of mucus during the bronch but again cultures were all negative except for normal jeanna. She did complete a course of Augmentin though after the procedure since she was having some cough and some discomfort. Will go ahead and start her on a little bit higher dose of prednisone to decrease inflammation. Also she may benefit from a muscle relaxant as it is believe is musculoskeletal. However, she is going to try Lidoderm patch 1st. And she already has Percocet as needed for pain. Will plan to continue the current therapy and will follow-up with a CT scan in 3 months. [facility] Medical History (Updated 09/15/24 @ 21:40 by Fidel White MD) Chest pain History of RSV infection (03/2024) Hx of influenza (03/2024) Influenza A Asthma-COPD overlap syndrome Allergies History of back pain History of neuropathy Smokes tobacco daily Opioid dependence Nephrolithiasis Hyperlipidemia HTN (hypertension) Cardiomyopathy Myocardial infarction CAD (coronary artery disease) Cough Hypothyroidism, postsurgical Tubular adenoma Diabetes MCKAY (obstructive sleep apnea) Irritable bowel syndrome Hyperthyroidism Polycythemia Smoker Hypoxia COPD exacerbation Lesion of bronchus Tracheal anomaly Multinodular goiter Vitamin D deficiency Atelectasis Subclinical hyperthyroidism Goiter Pneumonia Pulmonary nodules COPD (chronic obstructive pulmonary disease) Surgical History History of coronary artery stent placement Hx of thyroidectomy History of thyroid surgery History of esophagogastroduodenoscopy (EGD) Hx of colonoscopy History of back surgery History of ureterostomy S/P lumpectomy, right breast History of cholecystectomy History of tonsillectomy Family History Father No problems noted. Mother No problems noted. Paternal Aunt Diabetes Social History Household Members: Significant Other Housing: House Are you a primary medication care manager to a significant other at home: No Do you presently have visiting nurse or other home services: No Alcohol intake: never Comment: declines alarm, steadt to walk short distance to commode Patient Tobacco Use Status: Current everyday Tobacco user Tobacco use type: Cigarette Cigarette Packs Per Day: 0.5 Cigarettes Per Day: 10 e-Cigarette/Vaping Use: Never Used Second Hand Smoke Exposure: Yes Substance Use Type: Other Advance Directives Date on File: 01/24/21 service: No Current occupational status: disabled Review of Systems Const Reports weight loss ENT Denies change in voice, Denies lip swelling, Denies mouth pain, Reports nasal congestion, Reports nasal discharge and Denies tongue swelling Card Reports chest pain and Denies dyspnea on exertion Resp Denies chest congestion, Reports cough, Denies hemoptysis, Denies pain on inspiration, Denies pain with cough and Denies dyspnea on exertion GI Denies abdominal pain Musc Denies no additional complaints Neuro Denies Neuro-related abnormal movements Psych Denies no additional complaints Alebrto/Lymph Denies easy bleeding and Denies lymphadenopathy Aller/Immun Denies lip swelling and Denies tongue swelling Physical Exam Vital Signs: Last Vital Signs Pulse 85 09/15/24 09:23 BP 100/60 09/15/24 09:23 Pulse Ox 96 09/15/24 09:23 Oxygen Delivery Method Room Air 09/15/24 09:23 BMI result Body Mass Index 27.7 Last Vital Signs Temp 97.6 F 04/24/24 15:52 Pulse 86 04/24/24 15:44 Resp 16 04/24/24 15:52 BP 164/81 H 04/24/24 15:52 Pulse Ox 95 04/24/24 15:52 O2 Del Method Nasal Cannula 04/24/24 15:52 O2 Flow Rate 2 04/24/24 15:52 BMI result Body Mass Index 28.2 Const Other: Awake alert no acute distress General: alert and awake Nutritional Appearance: overweight Orientation/consciousness: patient oriented x3 Neck Neck: Yes normal visual inspection Resp Other: b/l exp wheeze; poor air entry Effort & Inspection: able to speak in complete sentences and prolonged expiratory phase Auscultation: diminished lung sounds Cardio Other: No S4; positive S1-S2; no S3 murmurs rubs or gallops Heart sounds: S1 normal heart sound present and S2 normal heart sound present GI Palpation (GI): Soft to palpation Neuro Other: grossly nonfocal General: patient oriented x3 Extrem Other: No edema bilaterally Results Reviewed Results Reviewed: castro: Marita Zapata Age/Sex: 63/F Attending: Fidel White MD : 1960 Submitted by: Fidel White MD Copies to: FrankieBobby GRADY MR #: [id number] Status: [facility] Collected: 09/01/24 Location: [facility] Received: 09/01/24 Diagnosis A. Lung, right lower lobe, needle core biopsy: Benign bronchial tissue with mild chronic inflammation; negative for malignancy. B. Lung, left upper lobe, needle core biopsy: Benign bronchial tissue with mucus and fibrin; negative for malignancy. COMMENT: Multiple tissue levels have been examined. See also corresponding bronchial washings and brushing ([id number]). Clinical History Pre-Op Dx: Atelectasis Post-Op Dx: Atelectasis/endobronchial lesion Microscopic Description Microscopic sections reviewed. Multiple tissue levels have been examined. Material Received A. Right lower lobe B. Left upper lobe Gross Description Received in two parts. Part A: Received in formalin labeled ?right lower lobe? are two leslie irregular tissue fragments measuring 0.1 and 0.35 cm, submitted in toto in a cassette labeled A. Part B: Received in formalin labeled ?left upper lobe? are three fragments of red-maroon tissue versus blood each measuring less than 0.1 cm, submitted in toto in a cassette labeled B. CEDS This case was reviewed intradepartmentally. Copies To Name,Bobby GRADY [address] [place] [id number] Patient: Marita Zapata Age/Sex: 63/F MR#: [id number] Page 1 of 2 Assessment & Plan Assessment & Plan (1) Atelectasis: Code(s): J98.11 - Atelectasis Category: Medical (2) COPD (chronic obstructive pulmonary disease): Code(s): J44.9 - Chronic obstructive pulmonary disease, unspecified Category: Medical Qualifiers: COPD type: unspecified COPD Qualified Code(s): J44.9 - Chronic obstructive pulmonary disease, unspecified (3) MCKAY (obstructive sleep apnea): Code(s): G47.33 - Obstructive sleep apnea (adult) (pediatric) Category: Medical (4) Pulmonary nodules: Code(s): R91.8 - Other nonspecific abnormal finding of lung field Category: Medical (5) Cough: Code(s): R05.9 - Cough, unspecified Category: Medical Qualifiers: Cough type: chronic Qualified Code(s): R05.3 - Chronic cough (6) Allergies: Code(s): T78.40XA - Allergy, unspecified, initial encounter Category: Medical Qualifiers: Encounter type: initial encounter Qualified Code(s): T78.40XA - Allergy, unspecified, initial encounter (7) Chest pain: Comment: non pleuritic, CXR ok, +reproducible, likely MS Code(s): R07.9 - Chest pain, unspecified Category: Medical Qualifiers: Chest pain type: intercostal pain Qualified Code(s): R07.82 - Interco stal pain (8) Lesion of bronchus: Code(s): J98.09 - Other diseases of bronchus, not elsewhere classified Category: Medical (9) Pneumonia: Code(s): J18.9 - Pneumonia, unspecified organism Category: Medical Plan Prednisone taper lidoderm patch conisder muscle relaxer Continue Trelegy Duoneb/Combivent as needed Prednisone 5mg daily Needs to stop smoking: nicotine patch continue Daliresp continue Dupixent continue exercise regimen F/U [address] chest Orders: Orders CT chest wo IV con 10 Weeks J18.9 - Pneumonia, unspecified organism, J98.09 - Other diseases of bronchus, not elsewhere classified, J98.11 - Atelectasis, R91.8 - Other nonspecific abnormal finding of lung field XR chest 2V Today R07.9 - Chest pain, unspecified Medications: New prednisone PO daily; Take 2 tabs daily x 5 days, then 1 tab daily x 5 days 15 tabs 0RF 10 days Coding Level of Care Code Est Pt Level 5 (91671) Complex EM visit Add On G2211 Diagnoses Atelectasis J98.11 Simple chronic bronchitis J44.9 COPD type: unspecified COPD MCKAY (obstructive sleep apnea) G47.33 Pulmonary nodules R91.8 Chronic cough R05.3 Cough type: chronic Allergy, initial encounter T78.40XA Encounter type: initial encounter Intercostal pain R07.82 Chest pain type: intercostal pain Lesion of bronchus J98.09 Pneumonia J18.9 Time Spent (min) 60
[2024-09-15 09:23] VITALS: BP 100/60; PULSE 85; O2SAT 96; BMI 27.7
--- OUTSIDE RECORDS SUMMARY | 2024-09-15 09:57 | XMS_ITS | Encounter Summary ---
Author Organization [employer] Address [address] [place] [address] Care Team Providers Care Paper Sales Manager Name Role Phone Name, Bobby GRADY Primary Care Provider [phone] Inga Magaña PharmD Unavailable [phone] Reason for Visit * Reason Comments Med Change Request Encounter Details Date Type Department Care Team ([facility] st Contact Info) Description 06/09/2023 Refill [facility] [address] [place] [address] Name, MD Bobby [address] [place] [address] Social History Tobacco Use Types Packs/Day Years [...] Care Team (Late st Contact Info) Description 11/02/2024 9:30 AM EDT Office Visit [facility] [address] [place] [id number] Name, MD Bobby [address] [place] [phone] 11/25/2024 10:00 AM EDT Telemedicine [address] [address] Skye Melton, HODA documented as of this encounter Goals Goal Patient Goal Type Associated Problems Recent Progress Patient-Stated? Author Smoking cessation General No Inga Magaña, PharmD documented as of this encounter Visit Diagnoses Not on filedocumented in this encounter Additional Health Concerns Assessment Noted Time PHQ-9 Depression Total Score: 0 03/11/20 22 11:47 AM EST documented as of this encounter Care Teams Paper Sales Manager Relationship Specialty Start Date End Date Name, MD Bobby [address] [place] [id number] PCP - General Family Medicine 06/01/15 Inga Magaña, PharmD [address] [place] [id number] Pharmacist Internal Medicine 01/07/23 09/29/23 Eloina 05/13/24 documented as of this encounter
== END 2024-09-15 09:56 | disposition home or self-care (01) ==
LOC: HO.HPS 09:18
PROVIDERS: PCP Internal Medicine Geriatric Medicine; Visit Provider Hospitalist
DX: J98.11 Atelectasis (principal); J44.9 Chronic obstructive pulmonary disease, unspecified; G47.33 Obstructive sleep apnea (adult) (pediatric); R91.8 Other nonspecific abnormal finding of lung field; R05.3 Chronic cough; T78.40XA Allergy, unspecified, initial encounter; R07.82 Intercostal pain; J98.09 Other diseases of bronchus, not elsewhere classified; J18.9 Pneumonia, unspecified organism
CPT/HCPCS: 99215; G2211

== ENCOUNTER 2024-09-15 09:18 | Outpatient (REF) | payer OTHER, SELFPAY ==
--- NOTE | ~2024-09-15 | XR_ITS ---
CLINICAL HISTORY: R07.9 - Chest pain, unspecified 2 view chest x-ray Comparison: CR/SR - XR CHEST 2V - 07/05/24 11:22 EDT Findings: Persistent but improving density along the right middle lobe. No effusion or pneumothorax. Cardiac and mediastinal contours are stable. Heart size is normal. No acute fracture. IMPRESSION: Persistent but improving right middle lobe density seen best on the lateral view. This document has been electronically signed by: Montez Andre MD on 09/16/2024 10:24:05
== END 2024-09-15 09:19 | disposition home or self-care (01) ==
LOC: HO.XRAY 09:18
PROVIDERS: PCP Internal Medicine Geriatric Medicine; Visit Provider Hospitalist
DX: R07.9 Chest pain, unspecified (principal); J98.11 Atelectasis; J44.9 Chronic obstructive pulmonary disease, unspecified; G47.33 Obstructive sleep apnea (adult) (pediatric); R91.8 Other nonspecific abnormal finding of lung field; R05.3 Chronic cough; J98.09 Other diseases of bronchus, not elsewhere classified; J18.9 Pneumonia, unspecified organism
CPT/HCPCS: 71046; 99212

== ENCOUNTER → 2024-09-15 09:50 | Outpatient (BNV) | payer OTHER, SELFPAY | PROVIDERS: PCP Internal Medicine Geriatric Medicine; Visit Provider Radiology Vascular & Interventional Radiology | DX: R91.8 Other nonspecific abnormal finding of lung field (principal) | CPT/HCPCS: 71046 ==

== ENCOUNTER 2024-11-11 08:44 | Outpatient (AMB) | payer OTHER, SELFPAY ==
--- OUTSIDE RECORDS SUMMARY | 2024-11-11 09:02 | XMS_ITS | Encounter Summary ---
Author Organization [employer] Address [address] [place] [address] Care Team Providers Care Toll Line Repairer Name Role Phone Name, Bobby GRADY Primary Care Provider [phone] Encounter Details Date Type Department Care Team (Latest Contact Info) Description 05/04/2024 Lab Requisition [facility] - Main Lab [address] [place] [address] Yared Weaver MD [address] [place] [address], [phone] Atherosclerotic heart disease of [place] coronary artery without angina pectoris Social History [...] 5:05 AM EST Atherosclerotic heart disease of [place] coronary artery without angina pectoris BASIC METABOLIC PANEL Routine 05/05/2024 5:05 AM EST Atherosclerotic heart disease of [place] coronary artery without angina pectoris documented in this encounter Results * (ABNORMAL) Basic metabolic panel (05/05/2024 5:05 AM EST) Sodium 144 133 - 145 mmol/L LAB CHEMISTRY METHOD 05/05/2024 11:28 AM EST [facility] Potassium 3.9 3.5 - 5.5 mmol/L LAB CHEMISTRY METHOD 05/05/2024 11:28 AM [facility] LAB Chloride 103 96 - 110 mmol/L LAB CHEMISTRY METHOD 05/05/2024 11:28 AM [facility] CO2 34(H) 21 - 32 mmol/L LAB CHEMISTRY METHOD 05/05/2024 11:28 AM [facility] Anion Gap 7 3 - 11 LAB CHEMISTRY METHOD 05/05/2024 11:28 AM [facility] Glucose 101(H) 70 - 100 mg/dL LAB CHEMISTRY METHOD 05/05/2024 11:28 AM [facility] BUN 19 5 - 25 mg/dL LAB CHEMISTRY METHOD 05/05/2024 11:28 AM [facility] Creatinine 0.71 0.50 - 1.10 mg/dL LAB CHEMISTRY METHOD 05/05/2024 11:28 AM [facility] LAB eGFR 95 >=60 mL/min/1. 73m2 LAB CHEMISTRY METHOD 05/05/2024 11:28 AM [facility] LAB Comment:Calculation based on the Chronic Kidney Disease Epidemiology Collaboration (CKD-EPI) equation refit without adjustment for race. BUN/Creatinine Ratio 26.8 LAB CHEMISTRY METHOD 05/05/2024 11:28 AM [facility] Calcium 8.0(L) 8.5 - 10.5 mg/dL LAB CHEMISTRY METHOD 05/05/2024 11:28 AM [facility] Blood Venous blood specimen / Unknown Venipuncture / Unknown 05/05/2024 5:05 AM EST 05/05/2024 9:37 AM EST us Yared Weaver MD LAB BLOOD ORDERABLES Final Resul t [facility] [address] [place] [address], * (ABNORMAL) Complete blood count (05/05/2024 5:05 AM EST) [facility] WBC 13.8(H) 4.8 - 10.8 K/mcL LAB HEMETOLOGY METHOD 05/05/2024 11:24 AM [facility] RBC 5.30(H) 3.80 - 4.80 M/mcL LAB HEMETOLOGY METHOD 05/05/2024 11:24 AM [facility] Hemoglobin 15.0 11.5 - 16.0 g/dL LAB HEMETOLOGY METHOD 05/05/2024 11:24 AM [facility] Hematocrit 47.2(H) 35.0 - 47.0 % LAB HEMETOLOGY METHOD 05/05/2024 11:24 AM [facility] MCV 89.6 79.0 - 98.0 FL LAB HEMETOLOGY METHOD 05/05/2024 11:24 AM [facility] MCH 28.5 27.0 - 32.0 pcg LAB HEMETOLOGY METHOD 05/05/2024 11:24 AM [facility] MCHC 31.8(L) 32.0 - 37.0 g/dL LAB HEMETOLOGY METHOD 05/05/2024 11:24 AM [facility] RDW 15.9(H) 11.0 - 15.0 % LAB HEMETOLOGY METHOD 05/05/2024 11:24 AM [facility] Platelets 184 130 - 400 K/mcL LAB HEMETOLOGY METHOD 05/05/2024 11:24 AM [facility] MPV 12.0(H) 7.0 - 11.0 FL LAB HEMETOLOGY METHOD 05/05/2024 11:24 AM [facility] NRBC 0.0 <1.0 % LAB HEMETOLOGY METHOD 05/05/2024 11:24 AM [facility] NRBC Absolute 0.00 <0.10 K/mcL LAB HEMETOLOGY METHOD 05/05/2024 11:24 AM EST [facility] LAB Blood Venous blood specimen / Unknown Venipuncture / Unknown 05/05/2024 5:05 AM EST 05/05/2024 9:37 AM EST us Yared Weaver MD LAB BLOOD ORDERABLES Final Resul t [facility] [address] [place] [address], documented in this encounter Visit Diagnoses Diagnosis Atherosclerotic heart disease of [place] coronary artery without angina pectoris documented in this encounter Care Teams Toll Line Repairer Relationship Specialty Start Date End Date Name, MD Bobby [address] [place], [place] PCP - General Internal Medicine 04/01/18 documented as of this encounter
--- OUTSIDE RECORDS SUMMARY | 2024-11-11 09:02 | XMS_ITS | Encounter Summary ---
Author Organization [employer] Address [address] [facility] [address] [place] [address] Care Team Providers Care General Counsel Name Role Phone Name, Bobby GRADY Primary Care Provider [phone] Inga Magaña PharmD Unavailable [phone] Reason for Visit * Reason Comments Med Change Request Encounter Details Date Type Department Care Team ([facility] st Contact Info) Description 06/09/2023 Refill [facility] MEDICINE [address] [place] [address] Name, MD Bobby [address] [place] [address] Social History Tobacco Use Types Packs/Day Years [...] Care Team (Late st Contact Info) Description 11/25/2024 10:00 AM EDT Telemedicine [address] [address] Skye Melton RN 01/25/2025 9:30 AM EDT Office Visit [facility] MEDICINE [address] [place] [phone] Name, MD Bobby [address] [place] [address] documented as of this encounter Goals Goal Patient Goal Type Associated Problems Recent Progress Patient-Stated? Author Smoking cessation General No Inga Magaña, PharmD documented as of this encounter Visit Diagnoses Not on filedocumented in this encounter Additional Health Concerns Assessment Noted Time PHQ-9 Depression Total Score: 0 03/11/20 22 11:47 AM EST documented as of this encounter Care Teams General Counsel Relationship Specialty Start Date End Date Name, MD Bobby [address] [place] [phone] PCP - General Family Medicine 06/01/15 Inga Magaña PharmD [address] [place] [phone] Pharmacist Internal Medicine 01/07/23 09/29/23 Eloina 05/13/24 documented as of this encounter
--- NOTE | 2024-11-11 09:20 | A.SPINEOV_ITS ---
Intake Visit Reasons: low back pain Intake Note: Ms. Ashley Lawrence is here today c/o low pain. MRI done @ [facility]. Foreign Student Adviser Required: No Allergies HANK Inhibitors (HANK INHIBITORS) Allergy (Severe, Verified 09/15/24 09:25) ANGIO EDEMA enalapril Allergy (Severe, Verified 09/15/24 09:25) Anaphylaxis erythromycin base (ERYTHROMYCIN BASE) Allergy (Severe, Verified 09/15/24 09:25) HIVES ALL OVER metformin Allergy (Verified 09/15/24 09:25) Unknown hydromorphone (From DILAUDID) Adverse Reaction (Severe, Verified 09/15/24 09:25) TINGLING, PT DOES NOT LIKE THE FEELING MED GIVES HER Assessment & Plan Assessment & Plan (1) Lumbar post-laminectomy syndrome: Code(s): M96.1 - Postlaminectomy syndrome, not elsewhere classified Category: Medical Plan Dear Dr David, Thank you for referring Ms Ashley Lawrence to our office today. She is a 63-year-old female with an extensive medical history including COPD, poorly- controlled diabetes, CAD, CHF, presents for evaluation of chronic low back pain, as well as bilateral lower extremity pain more on left. She had a previous L5-S1 microdiskectomy done by Dr. Childers about 6 or 7 years ago and that was a terrible experience. She had tremendous postoperative pain and the preoperative symptoms never went away. She comes back in today for an evaluation to see if there is anything that we can do for her. She has tried multiple conservative management options including physical therapy and cortisone injections in the past. The cortisone injections had worked well for her but were temporary. They were done before her last surgery. She currently takes baclofen and oxycodone help with the pain. PMH: She has an extensive medical history, the worst of which is probably her COPD, she has been a lifelong smoker, I am not sure what her FEV1 is, but she has been on home oxygen at 1 point, but was able to get off that after some pulmonary rehab. She is followed by Dr. White here at [facility]. She takes prednisone daily as well as multiple inhalers. She has had pneumonia for about the last 4 months in his been battling that. She also has a history of diabetes, her A1c generally is quite elevated, she tells me up to 11 at 1 point but currently more close to 8. History of CAD with stents, her chart also suggests he has CHF. She has history of neuropathy, kidney stones, back surgery, cholecystectomy, thyroid removal. Social hx: She is still smoking about half a pack a day, does not smoke marijuana or use any alcohol or other recreational drugs Medications: Please see the [employer] list Allergies: Please see the [employer] list Physical exam: Awake alert oriented no acute distress, she has a well healed midline incisional scar in her lower back, localizes her pain to above that area as well as across the middle of her lower lumbar region. Her strength is normal but reflexes are absent Imaging review: Lumbar MRI shows diffuse degenerative disc disease but primarily worse at L5-S1. There is postsurgical scar on the right at L5-S1 with a small midline bulging disc but there severe disc collapse at L5-S1 with bilateral neuroforaminal stenosis. Based on the x-rays she had done in May it also appears she has osteoporosis. I do not see this listed in the chart. Impression: 63-year-old female with extensive medical history including chronic COPD, was on home oxygen at 1 point, CAD, CHF, uncontrolled diabetes, previous back surgery L5-S1 that was unsuccessful, who presents for evaluation of low back pain and bilateral lower extremity pain with standing and walking. I suspect a lot of her pain is coming from L5-S1 given that there is not only significant disc collapse but bilateral neuroforaminal stenosis. However, she does not look to be a good surgical candidate. I viewed her x-rays done in May and her bone quality appears to have osteoporosis. Given all the medical risks with intubating her in putting her through an operation as well as the high risk for pseudoarthrosis given the poor bone quality, I suspect Dr. Mas will not offer her fusion surgery to correct the L5-S1 disc. I will review this with him, but I think she is high risk for complications overall. I do not think she is really looking for back surgery in the sense that she had such a terrible experience the 1st go around I think she is looking for something little less invasive, maybe injections or something similar. I will send her to and see if he has anything he can offer her. Thank you for allowing us to care for your patient. The total time spent with this visit with this patient was 45 minutes reviewing history, physical exam, lumbar imaging review, and implementation of treatment plan or further diagnostic testing Eliot Mas MD,PhD [facility] Orders: Referrals Pain Management Referral M96.1 - Postlaminectomy syndrome, not elsewhere classified Coding Level of Care Code New Pt Level 4 (14528) Diagnoses Lumbar post-laminectomy syndrome M96.1
== END 2024-11-11 10:08 | disposition home or self-care (01) ==
LOC: HO.HNS 08:45
PROVIDERS: PCP Internal Medicine Geriatric Medicine; Referring Provider Registered Nurse; Visit Provider Physician Assistant
DX: M96.1 Postlaminectomy syndrome, not elsewhere classified (principal)
CPT/HCPCS: 99204

== ENCOUNTER → 2024-11-11 08:44 | Outpatient (BNVA) | payer OTHER, SELFPAY | PROVIDERS: PCP Internal Medicine Geriatric Medicine; Referring Provider Registered Nurse; Visit Provider Physician Assistant | DX: M96.1 Postlaminectomy syndrome, not elsewhere classified (principal) | CPT/HCPCS: 99202 ==

== ENCOUNTER 2024-11-18 07:34 | Outpatient (REF) | payer OTHER, SELFPAY ==
--- NOTE | ~2024-11-18 | CT_ITS ---
CLINICAL HISTORY: J98.11 - Atelectasis CT chest without IV contrast. COMPARISON: CT chest dated 08/16/24 at 08:[address] chest dated 06/09/23 at 07:33 EDT FINDINGS: No supraclavicular or axillary lymphadenopathy. Ascending aorta and main pulmonary artery are normal in caliber. No pericardial effusion. Coronary artery calcifications present within the LAD, RCA and circumflex. No pericardial effusion. Normal esophagus. No mediastinal lymphadenopathy. No pleural effusion. Persistent atelectasis with bronchiectasis in the right middle lobe, similar to prior imaging although progressed since imaging performed in 2023. Trachea and central airways are clear. No significant bronchial wall thickening. Right upper lobe 5 mm pulmonary nodule (series 5, image 54), stable. No new or growing pulmonary nodule. Nonobstructing 2 mm left renal calculus. Flowing marginal osteophytes along the mid to lower thoracic spine. No acute fracture or suspicious bone lesion IMPRESSION: 1. Persistent atelectasis with bronchiectasis in the right middle lobe consistent with right middle lobe syndrome. This has progressed since imaging performed in 2023 but appears stable since prior imaging. 2. Coronary artery atherosclerosis. 3. Stable right upper lobe 5 mm pulmonary nodule. Given stability since 2023, no further specific follow-up recommendations. No new or growing pulmonary nodule. This document has been electronically signed by: Nikko Keenan MD on 11/19/2024 19:06:50
--- OUTSIDE RECORDS SUMMARY | 2024-11-18 07:36 | XMS_ITS | Encounter Summary ---
Author Organization [employer] Address [address] [facility] [address] [place] [address] Care Team Providers Care Timber Cutter Name Role Phone Name, Bobby GRADY Primary Care Provider [phone] Inga Magaña PharmD Unavailable [phone] Reason for Visit * Reason Comments Med Change Request Encounter Details Date Type Department Care Team ([facility] st Contact Info) Description 06/09/2023 Refill [facility] MEDICINE [address] [place] [address] Name, MD Bobby [address] [place] [address] Social History Tobacco Use Types Packs/Day Years [...] Info) Description 11/25/2024 10:00 AM EDT Telemedicine [facility] MEDICINE [address] [place] [phone] Skye Melton RN 01/25/2025 9:30 AM EDT Office Visit [facility] MEDICINE [address] [place] [phone] Bobby David MD [address] [place] [address] 03/14/2025 10:00 AM EST Office Visit [facility] OPTOMETRY [address] [place] [address] TarAbbey beckett, OD [address] [place] [address] documented as of this encounter Goals Goal Patient Goal Type Associated Problems Recent Progress Patient-Stated? Author Smoking cessation General No Inga Magaña, PharmD documented as of this encounter Visit Diagnoses Not on filedocumented in this encounter Additional Health Concerns Assessment Noted Time PHQ-9 Depression Total Score: 0 03/11/20 22 11:47 AM EST documented as of this encounter Care Teams Timber Cutter Relationship Specialty Start Date End Date Bobby David MD [address] [place] [address] PCP - General Family Medicine 06/01/15 Inga Magaña, PharmD [address] [place] [phone] Pharmacist Internal Medicine 01/07/23 09/29/23 Eloina 05/13/24 documented as of this encounter
--- OUTSIDE RECORDS SUMMARY | 2024-11-18 07:36 | XMS_ITS | Encounter Summary ---
Author Organization [employer] Address [address] [place] [address] Care Team Providers Care Science Specialist Name Role Phone Name, Bobby GRADY Primary Care Provider [phone] Encounter Details Date Type Department Care Team (Latest Contact Info) Description 05/04/2024 Lab Requisition [facility] - Main Lab [address] [place] [address] Yared Weaver MD [address] [place] [address], [phone] Atherosclerotic heart disease of [place] coronary artery without angina pectoris Social History [...] 5:05 AM EST Atherosclerotic heart disease of [place] coronary artery without angina pectoris BASIC METABOLIC PANEL Routine 05/05/2024 5:05 AM EST Atherosclerotic heart disease of [place] coronary artery without angina pectoris documented in this encounter Results * (ABNORMAL) Basic metabolic panel (05/05/2024 5:05 AM EST) Sodium 144 133 - 145 mmol/L LAB CHEMISTRY METHOD 05/05/2024 11:28 AM EST [facility] Potassium 3.9 3.5 - 5.5 mmol/L LAB CHEMISTRY METHOD 05/05/2024 11:28 AM [facility] LAB Chloride 103 96 - 110 mmol/L LAB CHEMISTRY METHOD 05/05/2024 11:28 AM [facility] LAB CO2 34(H) 21 - 32 mmol/L LAB CHEMISTRY METHOD 05/05/2024 11:28 AM [facility] LAB Anion Gap 7 3 - 11 LAB CHEMISTRY METHOD 05/05/2024 11:28 AM [facility] LAB Glucose 101(H) 70 - 100 mg/dL LAB CHEMISTRY METHOD 05/05/2024 11:28 AM [facility] BUN 19 5 - 25 mg/dL LAB CHEMISTRY METHOD 05/05/2024 11:28 AM [facility] LAB Creatinine 0.71 0.50 - 1.10 mg/dL LAB CHEMISTRY METHOD 05/05/2024 11:28 AM [facility] LAB eGFR 95 >=60 mL/min/1. 73m2 LAB CHEMISTRY METHOD 05/05/2024 11:28 AM [facility] LAB Comment:Calculation based on the Chronic Kidney Disease Epidemiology Collaboration (CKD-EPI) equation refit without adjustment for race. BUN/Creatinine Ratio 26.8 LAB CHEMISTRY METHOD 05/05/2024 11:28 AM [facility] Calcium 8.0(L) 8.5 - 10.5 mg/dL LAB CHEMISTRY METHOD 05/05/2024 11:28 AM [facility] LAB Blood Venous blood specimen / Unknown Venipuncture / Unknown 05/05/2024 5:05 AM EST 05/05/2024 9:37 AM EST us Yared Weaver MD LAB BLOOD ORDERABLES Final Resul t [facility] LAB [address] [place] [address], * (ABNORMAL) Complete blood count (05/05/2024 5:05 AM EST) [facility] WBC 13.8(H) 4.8 - 10.8 K/mcL LAB HEMETOLOGY METHOD 05/05/2024 11:24 AM [facility] RBC 5.30(H) 3.80 - 4.80 M/mcL LAB HEMETOLOGY METHOD 05/05/2024 11:24 AM [facility] Hemoglobin 15.0 11.5 - 16.0 g/dL LAB HEMETOLOGY METHOD 05/05/2024 11:24 AM [facility] LAB Hematocrit 47.2(H) 35.0 - 47.0 % LAB HEMETOLOGY METHOD 05/05/2024 11:24 AM [facility] LAB MCV 89.6 79.0 - 98.0 FL LAB HEMETOLOGY METHOD 05/05/2024 11:24 AM [facility] MCH 28.5 27.0 - 32.0 pcg LAB HEMETOLOGY METHOD 05/05/2024 11:24 AM [facility] MCHC 31.8(L) 32.0 - 37.0 g/dL LAB HEMETOLOGY METHOD 05/05/2024 11:24 AM [facility] RDW 15.9(H) 11.0 - 15.0 % LAB HEMETOLOGY METHOD 05/05/2024 11:24 AM [facility] Platelets 184 130 - 400 K/mcL LAB HEMETOLOGY METHOD 05/05/2024 11:24 AM [facility] MPV 12.0(H) 7.0 - 11.0 FL LAB HEMETOLOGY METHOD 05/05/2024 11:24 AM [facility] NRBC 0.0 <1.0 % LAB HEMETOLOGY METHOD 05/05/2024 11:24 AM [facility] NRBC Absolute 0.00 <0.10 K/mcL LAB HEMETOLOGY METHOD 05/05/2024 11:24 AM EST [facility] LAB Blood Venous blood specimen / Unknown Venipuncture / Unknown 05/05/2024 5:05 AM EST 05/05/2024 9:37 AM EST us Yared Weaver MD LAB BLOOD ORDERABLES Final Resul t [facility] [address] [place] [address], documented in this encounter Visit Diagnoses Diagnosis Atherosclerotic heart disease of [place] coronary artery without angina pectoris documented in this encounter Care Teams Science Specialist Relationship Specialty Start Date End Date Name, MD Bobby [address] [place], [place] PCP - General Internal Medicine 04/01/18 documented as of this encounter
== END 2024-11-18 07:35 | disposition home or self-care (01) ==
LOC: HO.CT 07:34
PROVIDERS: PCP Internal Medicine Geriatric Medicine; Visit Provider Hospitalist
DX: J98.11 Atelectasis (principal); J18.9 Pneumonia, unspecified organism; J98.09 Other diseases of bronchus, not elsewhere classified; R91.8 Other nonspecific abnormal finding of lung field
CPT/HCPCS: 71250

== ENCOUNTER → 2024-11-18 07:35 | Outpatient (BNV) | payer OTHER, SELFPAY | PROVIDERS: PCP Internal Medicine Geriatric Medicine; Visit Provider Radiology Diagnostic Radiology | DX: J98.11 Atelectasis (principal); I25.10 Atherosclerotic heart disease of native coronary artery without angina pectoris; J47.9 Bronchiectasis, uncomplicated; R91.1 Solitary pulmonary nodule | CPT/HCPCS: 71250 ==

== ENCOUNTER 2024-12-04 10:54 | Emergency (ER) | payer OTHER, SELFPAY ==
--- NOTE | ~2024-12-04 | XR_ITS ---
CLINICAL HISTORY: Pneumonia? Chest pain 1 view chest x-ray Comparison: CR/SR - XR CHEST 2V - 09/15/24 10:39 EDT Findings: There is mild airspace opacity within the right lower lung, similar to the prior study. The left lung is clear. No gross evidence of pleural effusion. Heart size is normal. No acute fracture. IMPRESSION: Mild airspace opacity within the right lower lung, similar to the prior exam. This may represent a chronic area of atelectasis or scarring. Superimposed infiltrate or recurrent infiltrate not excluded. This document has been electronically signed by: Cady Vázquez MD on 12/04/2024 13:22:33
[2024-12-04 11:10] VITALS: BP 148/70; PULSE 84; RESP 16; TEMP 36.5; O2SAT 94; BMI 24.1
--- NOTE | 2024-12-04 11:12 | ED_ITS ---
HPI - General Adult General Chief complaint: Chest Pain Stated complaint: CP, vomiting waek Time Seen by Provider: 12/04/24 11:51 Source: patient Mode of arrival: ambulatory Limitations: no limitations History of Present Illness ED Provider: [facility]. Cage [facility] narrative: This is a 63-year-old female history of COPD, diabetes, CAD, CHF, MCKAY, hypothyroidism, cholecystectomy presented hospital today for epigastric pain and nausea and vomiting. Patient states she has been having nausea and vomiting for the past 9 hours. She stated her epigastric pain started after her nausea and vomiting. Denies any diarrhea. Denies any fever sore throat or nasal congestion. She does endorse chronic cough. Related Data Home Medications ?Medication ?Instructions ?Recorded ?Confirmed aspirin 81 mg tablet,delayed 81 mg PO BEDTIME 12/24/19 08/30/24 release atorvastatin 80 mg tablet 80 mg PO BEDTIME 12/24/19 carvedilol 6.25 mg tablet 6.25 mg PO BID 12/24/1906/21 cetirizine 10 mg tablet 10 mg PO DAILY PRN allergies 12/24/19 08/30/24 montelukast 10 mg tablet 10 mg PO BEDTIME 12/24/19 omeprazole 20 mg capsule,delayed 20 mg PO BID@0630,163 0 12/24/19 08/30/24 release docusate sodium 100 mg capsule 1 cap PO BEDTIME Consti pation 01/24/21 08/30/24 blood sugar diagnostic (FreeStyle #10 ea 10/07/2107/22 Lite Strips) lancets 33 gauge (TRUEplus Lancets) #100 ea 10/07/21 0 05/31/24 naloxone 4 mg/actuation nasal spray 1 spray intranasal ONCE PRN Opioid 10/07/21 08/30/24 Overdose oxycodone-acetaminophen 7.5 mg-325 1 tab PO Q6H PRN se jevon pain 06/23/22 08/30/24 mg tablet sennosides 8.6 mg tablet (senna) 8.6 mg PO BID Constip ation 01/30/23 08/30/24 nebulizers 06/03/23 05/31/24 empagliflozin 10 mg tablet 10 mg PO DAILY 02/10/2406/21 (Jardiance) insulin glargine 100 unit/mL (3 35 unit subcut BID 12/2208/30/24 mL) subcutaneous pen (Lantus Solostar U-100 Insulin) levothyroxine 112 mcg tablet 112 mcg PO DAILY@0600 12/2208/30/24 pregabalin 100 mg capsule 100 mg PO TID 04/07/2408/30 dulaglutide 1.5 mg/0.5 mL 1.5 mg subcut WE@0900 08/30/24 subcutaneous pen injector (Trulicity) dupilumab 300 mg/2 mL subcutaneous 300 mg subcut Q2W 0 04/21/24 08/30/24 pen injector (Dupixent) fluticasone propionate 50 1 spray intranasal DAILY PRN 04/21/24 08/30/24 mcg/actuation nasal Congestion spray,suspension insulin aspart U-100 100 unit/mL 6 - 10 sliding scale dose subcut 04/21/24 08/30/24 (3 mL) subcutaneous pen (Novolog TIDAC FlexPen U-100 Insulin aspart) ipratropium 20 mcg-albuterol 100 2 puff inhalation BID 04/21/24 08/30/24 mcg/actuation mist for inhalation (Combivent Respimat) pyridoxine (vitamin B6) 50 mg 50 mg PO DAILY 08/11/24 08/30/24 tablet Previous Rx's ?Medication ?Instructions ?Recorded Ventolin HFA 90 mcg/actuation 2 puff inhalation Q4-6H PRN for 07/27/23 aerosol inhaler (albuterol sulfate) wheezing #18 grams arm brace (HANK Elbow Brace) #1 ea 08/27/23 ipratropium 0.5 mg-albuterol 3 mg 3 ml inhalation RQ4H WHILE AWAKE 04/26/24 (2.5 mg base)/3 mL nebulization PRN Shortness Of Breat h/Wheezing soln #270 mL lidocaine 5 % topical patch 1 patch topical DAILY #30 ea 06/12/24 prednisone 5 mg tablet 5 mg PO DAILY #30 tabs 08/17 amoxicillin 875 mg-potassium 1 tab PO BID 10 days #20 tabs 09/02/24 clavulanate 125 mg tablet prednisone 10 mg tablet See Rx Instructions PO DAILY 10 06/19/25 days #15 tabs fluticasone fur. 100 mcg-umeclid 1 ea inhalation DAILY #60 ea 10/12/24 62.5 mcg-vilant 25 mcg inhalat.powder (Trelegy Ellipta) allopurinol 100 mg tablet 100 mg PO DAILY 90 days #90 tabs 10/17/24 roflumilast 500 mcg tablet 500 mcg PO DAILY #30 tabs 0 10/31/24 famotidine 20 mg tablet (Acid 20 mg PO DAILY 14 days # 14 tabs 12/04/24 Controller) ondansetron 4 mg disintegrating 4 mg PO Q8H PRN nausea and 12/04/24 tablet vomiting 4 days #14 tabs Allergies Allergy/AdvReac Type Severity Reaction Status Date / Time HANK Inhibitors (HANK Allergy Severe ANGIO Verified 12/04/24 11:11 INHIBITORS) EDEMA enalapril Allergy Severe Anaphylaxis Verified 12/04/24 11:11 erythromycin base Allergy Severe HIVES ALL Verified 12/04/24 11:11 (ERYTHROMYCIN BASE) OVER metformin Allergy Unknown Verified 12/04/24 11:11 hydromorphone (From DILAUDID) AdvReac Severe TINGLING, Verified 12/04/24 11:11 PT DOES NOT LIKE THE FEELING MED GIVES HER Review of Systems 2 Review of Systems: Pertinent review of systems as mentioned in HPI. All other system otherwise negative. [facility] Past Medical History [facility] Narrative: Medical history as mentioned in HPI Medical History (Updated 12/05/24 @ 00:00 by Background Daemon) Chest pain History of RSV infection (03/2024) Hx of influenza (03/2024) Influenza A Asthma-COPD overlap syndrome Allergies History of back pain History of neuropathy Smokes tobacco daily Opioid dependence Nephrolithiasis Hyperlipidemia HTN (hypertension) Cardiomyopathy Myocardial infarction CAD (coronary artery disease) Cough Hypothyroidism, postsurgical Tubular adenoma Diabetes MCKAY (obstructive sleep apnea) Irritable bowel syndrome Hyperthyroidism Polycythemia Smoker Hypoxia COPD exacerbation Lesion of bronchus Tracheal anomaly Multinodular goiter Vitamin D deficiency Atelectasis Subclinical hyperthyroidism Goiter Pneumonia Pulmonary nodules COPD (chronic obstructive pulmonary disease) Surgical History History of coronary artery stent placement Hx of thyroidectomy History of thyroid surgery History of esophagogastroduodenoscopy (EGD) Hx of colonoscopy History of back surgery History of ureterostomy S/P lumpectomy, right breast History of cholecystectomy History of tonsillectomy Family History Family History Father No problems noted. Mother No problems noted. Paternal Aunt Diabetes Social History Social History Household Members: Significant Other Housing: House Are you a primary health care facilities inspector to a significant other at home: No Do you presently have visiting nurse or other home services: No Alcohol intake: current Alcohol intake frequency: holidays/special occasions only Comment: declines alarm, steadt to walk short distance to commode Patient Tobacco Use Status: Current everyday Tobacco user Tobacco use type: Cigarette Cigarette Packs Per Day: 0.5 Cigarettes Per Day: 10 Smoked in Last 30 Days: Yes e-Cigarette/Vaping Use: Never Used Second Hand Smoke Exposure: Yes Use of substances other than those prescribed or required for medical reasons: No Substance Use Type: Other Advance Directives: Yes Advance Directives on File: Yes Advance Directives Date on File: 01/24/21 Do you have a plan to hurt others: No Plan Patient : No service: No Current occupational status: disabled Physical Exam ED Exam Exam: General: Pleasant, no distress, interacting appropriately Head: Normacephalic, atraumatic ENT: oral mucosa moist, neck supple, no tracheal deviation Cardiovascular: regular rate, regular rhythm, no murmurs, rubbing, gallops Respiratory: Bilateral wheezing on exam Gastrointestinal: Soft, non distended, epigastric tenderness on palpation Neurological: Awake and alert, no facial droop noted Skin: Warm and dry Psychiatric: Appropriate mood and thoughts Vital Signs: Vital Signs - 24 hr 12/04/24 11:10 12/04/24 12:24 12/04/24 12:46 Temperature 97.7 F Pulse Rate 84 72 76 Respiratory Rate 16 15 18 Blood Pressure 148/70 H 134/71 Pulse Oximetry 94 96 Oxygen Delivery Method Room Air Room Air BMI result Body Mass Index 24.1 Course Course Course Narrative: RME: 63 yold female with pmh of COPD and VA presents to the ED for vomitting for 9 hours and than started having chest pain. patient denies any dizziness, slurred speech, leg swelling, abdominal pain, calf pain, recent long travel or recent surgery. labs, EKG, swabs, and chest xray ordered. no leg swelling, pitting edema, calf tenderness, or wheezing Medications Administered Discontinued Medications Generic Name Dose Route Start Last Admin Trade Name Nora PRN Reason Stop Dose Admin Al Hydroxide/Mg Hydroxide 30 ml 12/04/24 13:14 12/04/24 13:42 Magnesium Hydrox/Alum Hydrox 30 Ml Oral.Susp PO 12/04/24 13:15 30 ml ONCE ONE Administration Baclofen 10 mg 12/04/24 13:01 12/04/24 13:12 Baclofen 10 Mg Tablet PO 12/04/24 13:02 10 mg ONCE ONE Administration Albuterol Sulfate 2.5 mg/ 0 mg 12/04/24 12:27 12/04/24 12:46 Albuterol/Ipratropium 3 ml INHALE 12/04/24 12:28 1 dose ONCE ONE Administration Famotidine 20 mg 12/04/24 12:13 12/04/24 12:39 Famotidine/Pf 20 Mg/2 Ml Vial IVPUSH 12/04/24 12:14 20 mg ONCE ONE Administration Sodium Chloride 1,000 mls @ 999 mls/hr 12/04/24 12:15 12/04/24 14:38 Ns IV 12/04/24 13:15 Infused .Q1H1M SOM Infusion Lidocaine HCl 15 ml 12/04/24 13:14 12/04/24 13:42 Lidocaine Hcl Viscous 2 % 15 Ml Solution MUCOUS MEM 12/04/24 13:15 15 ml ONCE ONE Administration Ondansetron HCl 4 mg 12/04/24 12:13 12/04/24 12:39 Ondansetron Hcl 4 Mg/2 Ml Vial IVPUSH 12/04/24 12:14 4 mg ONCE ONE Administration Oxycodone HCl 7.5 mg 12/04/24 13:01 12/04/24 13:11 Oxycodone Hcl Immed Release 5 Mg Tablet PO 12/04/24 13:02 7.5 mg ONCE ONE Administration Medical Decision Making Medical Decision Making MDM Narrative: This is a 63-year-old female history of COPD hyperthyroidism CHF CAD presented hospital today for evaluation of epigastric pain and nausea and vomiting. We will plan to start patient is a bolus IV fluid. IV Zofran will be given for her nausea. Based abdominal lab work will be obtained including CBC CMP lipase. Once patient's nausea control with plan to challenge her with a GI cocktail. IV Pepcid will be given as well. I suspect patient likely has gastric reflux or gastritis given her history. On exam patient does not have any signs of acute surgical abdomen. I did consider CT imaging. However we will hold off at this time. Patient's symptom has improved after GI cocktail. No longer have any chest pain or nausea or vomiting. We will plan to discharge patient home with short course of Pepcid. She is already on a course of omeprazole. We will plan to discharge her with some Zofran as well. Viral precautions provided the patient. She agrees and understands this plan. Patient will be discharged. On review of her lab work. Troponin is negative. Chest x-ray is unremarkable she does have chronic right lower lobe opacification. Which on review of previous imaging is similar. I think this is secondary to atelectasis. As mentioned in her prior CT imaging back in October of 2024. Patient is stable. Patient will be discharged Differential Diagnosis Differential Diagnoses: The differential diagnosis associated with the presentation includes Gastritis, gastroenteritis, ACS, COPD exacerbation Lab Data MDM Lab Attestation statement: I reviewed the patient's lab results. 12/04/24 11:35 12/04/24 11:35 Labs: Lab Results 12/04/24 12/04/24 Range/Units 11:35 11:49 WBC 12.6 H (4.8-10.8) X10*3/uL RBC 5.66 H (4.20-5.50) X10*6/uL Hgb 15.9 (12.0-16.0) g/dl Hct 47.6 H (37.0-47.0) % MCV 84.1 (80.0-98.0) fL MCH 28.1 (27.0-33.0) pg MCHC 33.4 (31.0-35.0) g/dl RDW 15.4 (11.0-16.0) % Plt Count 219 (160-400) X10*3/uL MPV 10.9 (9.4-12.3) fL Immature Gran % (Auto) 0.4 (0.0-0.4) % Neut % (Auto) 53.4 (45-73) % Lymph % (Auto) 33.2 (20-40) % [place] % (Auto) 8.6 (2-11) % Eos % (Auto) 3.4 (0-4) % Baso % (Auto) 1.0 (0-2) % Lymph # (Auto) 4.2 (1.2-4.9) X10*3/uL [place] # (Auto) 1.1 (0.1-1.2) X10*3/uL Eos # (Auto) 0.4 (0.0-0.4) X10*3/uL Baso # (Auto) 0.1 (0.0-0.2) X10*3/uL Abs Immat Gran (auto) 0.05 H (0.00-0.03) X10*3/uL Absolute Neuts (auto) 6.7 (2.0-8.3) x10*3/uL Absolute Nucleated RBC 0.000 (0.0-0.012) X10*3/uL Nucleated RBC % (auto) 0.0 (0.0-0.2) /100WBC PT 9.7 L (10.9-12.4) SEC INR 0.8 L (0.9-1.1) APTT 27.7 (26.7-34.1) SEC Sodium 146 H (135-145) mmol/L Potassium 3.5 (3.3-5.1) mmol/L Chloride 113 H (96-108) mmol/L Carbon Dioxide 22 (22-29) mmol/L Anion Gap 15 (12-20) BUN 14 (9-16) mg/dL Creatinine 0.78 (0.5-1.4) mg/dL Estim Creat Clear Calc 65.5 Estimated GFR > 60 Random Glucose 131 H (60-115) mg/dL Calcium 8.9 D (8.4-10.2) mg/dL Magnesium 2.0 (1.6-2.6) mg/dL Total Bilirubin 0.4 (0.0-1.0) mg/dL AST 21 (5-31) U/L ALT 21 (0-31) U/L Alkaline Phosphatase 78 (39-117) U/L Troponin I High Sens 3.9 D (<3.5-17.0) ng/L B-Natriuretic Peptide 51 (<100) pg/mL Total Protein 7.0 (6.5-8.0) g/dL Albumin 4.2 (3.5-5.0) g/dL Influenza Type A (PCR) NEGATIVE (Negative) Influenza Type B (PCR) NEGATIVE (Negative) RSV RNA Qual (PCR) NEGATIVE (Negative) SARS-CoV-2 RNA (RT-PCR) NEGATIVE (Negative) Independent Interpretation I performed an independent interpretation of an: Plain X-Ray Radiology Impression Discussion of test interpretation with radiology: I have reviewed the radiologist's reading. External Record Review External record reviewed: Inpatient record Discharge Plan Discharge Clinical Impression: Gastritis Patient Disposition: Home, Self-Care Instructions: Gastritis (ED) Prescriptions: New famotidine [Acid Controller] 20 mg tablet 20 mg PO DAILY 14 Days Qty: 14 0RF ondansetron 4 mg tablet,disintegrating 4 mg PO Q8H PRN (Reason: nausea and vomiting) 4 Days Qty: 14 0RF No Action albuterol sulfate [Ventolin HFA] 90 mcg/actuation HFA aerosol inhaler 2 puff inhalation Q4-6H PRN (Reason: for wheezing) Qty: 18 11RF prednisone 5 mg tablet 5 mg PO DAILY Qty: 30 3RF amoxicillin-pot clavulanate 875-125 mg tablet 1 tab PO BID 10 Days Qty: 20 0RF Trelegy Ellipta 100-62.5-25 mcg blister with device 1 ea INHALATION DAILY Qty: 60 12RF allopurinol 100 mg tablet 100 mg PO DAILY 90 Days Qty: 90 1RF roflumilast 500 mcg tablet 500 mcg PO DAILY Qty: 30 11RF docusate sodium 100 mg capsule 1 cap PO BEDTIME insulin aspart U-100 [Novolog FlexPen U-100 Insulin] 100 unit/mL (3 mL) insulin pen 6 - 10 sliding scale dose subcut TIDAC Protocol: Insulin Correction Scale Less than or equal to 110 ---- Give (units): 0 111 to 150 Give (units): 0 151 to 200 Give (units): 2 201 to 250 Give (units): 4 251 to 300 Give (units): 6 301 to 350 Give (units): 8 Greater than 350 Give (units): 10 Call MD if Blood Glucose > : 350 Combivent Respimat 20-100 mcg/actuation mist 2 puff INHALATION BID Trulicity 1.5 mg/0.5 mL pen injector 1.5 mg subcut WE@0900 Dupixent Pen 300 mg/2 mL pen injector 300 mg SUBCUT Q2W fluticasone propionate 50 mcg/actuation [place],Suspension 1 spray INTRANASAL DAILY PRN (Reason: Congestion) Rx Instructions: administer into each nostril ipratropium-albuterol 0.5 mg-3 mg(2.5 mg base)/3 mL Solution For Nebulization 3 ml inhalation RQ4H WHILE AWAKE PRN (Reason: Shortness Of Breath/Wheezing) Qty: 270 0RF lidocaine 5 % adhesive patch,medicated 1 patch topical DAILY Qty: 30 0RF Rx Instructions: leave on most painful area for up to 12 hrs sennosides [senna] 8.6 mg Tablet 8.6 mg PO BID insulin glargine [Lantus Solostar U-100 Insulin] 100 unit/mL (3 mL) insulin pen 35 unit SUBCUT BID Rx Instructions: PER PATIENT, MAY REQUIRE HIGHER DOSES WHEN ON STEROIDS levothyroxine 112 mcg tablet 112 mcg PO DAILY@0600 pregabalin 100 mg capsule 100 mg PO TID omeprazole 20 mg capsule,delayed release(DR/EC) 20 mg PO BID@0630,1630 aspirin 81 mg tablet,delayed release (DR/EC) 81 mg PO BEDTIME carvedilol 6.25 mg tablet 6.25 mg PO BID atorvastatin 80 mg tablet 80 mg PO BEDTIME Protocol: Hold for SBP< HOLD for SBP < : 90 montelukast 10 mg tablet 10 mg PO BEDTIME cetirizine 10 mg tablet 10 mg PO DAILY PRN (Reason: allergies) (DME) lancets [TRUEplus Lancets] 33 gauge misc See Rx Instructions .ROUTE TID Qty: 100 Rx Instructions: As directed (DME) FreeStyle Lite Strips Strip See Rx Instructions .ROUTE TID Qty: 10 Rx Instructions: As directed naloxone 4 mg/actuation spray,non-aerosol 1 spray intranasal ONCE PRN (Reason: Opioid Overdose) oxycodone-acetaminophen 7.5-325 mg tablet 1 tab PO Q6H PRN (Reason: severe pain) prednisone 10 mg tablet See Rx Instructions PO DAILY 10 Days Qty: 15 0RF Rx Instructions: PO daily; Take 2 tabs daily x 5 days, then 1 tab daily x 5 days (DME) nebulizers Misc See Rx Instructions .Route Rx Instructions: As directed (DME) HANK Elbow Brace Misc See Rx Instructions .Route Qty: 1 0RF Rx Instructions: As directed Jardiance 10 mg tablet 10 mg PO DAILY pyridoxine (vitamin B6) 50 mg tablet 50 mg PO DAILY Interventions: ED Discharge Assessment Last Done: 12/04/24 14:38 Discharge Date/Time: 12/04/24 15:04 Print Language: Montserratian
--- NOTE | 2024-12-04 11:23 | ECG_ITS ---
Test Reason : CHEST PAIN Blood Pressure : */* mmHG Vent. Rate : 82 BPM Atrial Rate : 82 BPM P-R Int : 146 ms QRS Dur : 94 ms QT Int : 372 ms P-R-T Axes : 71 -28 14 degrees QTcB Int : 434 ms Normal sinus rhythm Incomplete right bundle branch block Cannot rule out Anterior infarct , age undetermined Abnormal ECG When compared with ECG of 21-Apr-2024 12:08, Inverted T waves have replaced nonspecific T wave abnormality in Inferior leads Referred By: Drew Herrera Electronically Signed By: DAVI KEEN MD
--- OUTSIDE RECORDS SUMMARY | 2024-12-04 11:30 | XMS_ITS | Encounter Summary ---
Author Organization [employer] Address [address] [place] [address] Care Team Providers Care Laser Specialist Name Role Phone Name, Bobby GRADY Primary Care Provider [phone] Encounter Details Date Type Department Care Team (Latest Contact Info) Description 05/11/2024 Lab Requisition [facility] - Main Lab [address] [place] [address] Yared Weaver MD [address] [place] [address], [phone] Atherosclerotic heart disease of [place] coronary artery without angina pectoris Social History [...] AM EST Atherosclerotic heart disease of [place] coronary artery without angina pectoris BASIC METABOLIC PANEL Routine 05/12/2024 8:21 AM EST Atherosclerotic heart disease of [place] coronary artery without angina pectoris documented in this encounter Results * (ABNORMAL) Basic metabolic panel (05/12/2024 8:21 AM EST) Sodium 143 133 - 145 mmol/L LAB CHEMISTRY METHOD 05/12/2024 11:22 AM EST [facility] Potassium 3.6 3.5 - 5.5 mmol/L LAB CHEMISTRY METHOD 05/12/2024 11:22 AM [facility] LAB Chloride 109 96 - 110 mmol/L LAB CHEMISTRY METHOD 05/12/2024 11:22 AM [facility] LAB CO2 31 21 - 32 mmol/L LAB CHEMISTRY METHOD 05/12/2024 11:22 AM [facility] LAB Anion Gap 3 3 - 11 LAB CHEMISTRY METHOD 05/12/2024 11:22 AM [facility] LAB Glucose 95 70 - 100 mg/dL LAB CHEMISTRY METHOD 05/12/2024 11:22 AM [facility] BUN 21 5 - 25 mg/dL LAB CHEMISTRY METHOD 05/12/2024 11:22 AM [facility] LAB Creatinine 0.80 0.50 - 1.10 mg/dL LAB CHEMISTRY METHOD 05/12/2024 11:22 AM [facility] LAB eGFR 82 >=60 mL/min/1. 73m2 LAB CHEMISTRY METHOD 05/12/2024 11:22 AM [facility] LAB Comment:Calculation based on the Chronic Kidney Disease Epidemiology Collaboration (CKD-EPI) equation refit without adjustment for race. BUN/Creatinine Ratio 26.3 LAB CHEMISTRY METHOD 05/12/2024 11:22 AM [facility] LAB Calcium 8.0(L) 8.5 - 10.5 mg/dL LAB CHEMISTRY METHOD 05/12/2024 11:22 AM [facility] LAB Blood Venous blood specimen / Unknown Venipuncture / Unknown 05/12/2024 8:21 AM EST 05/12/2024 10:56 AM EST us Yared Weaver MD LAB BLOOD ORDERABLES Final Resul t [facility] [address] [place] [address], * (ABNORMAL) Complete blood count (05/12/2024 8:21 AM EST) [facility] WBC 12.5(H) 4.8 - 10.8 K/mcL LAB HEMETOLOGY METHOD 05/12/2024 11:10 AM [facility] LAB RBC 5.10(H) 3.80 - 4.80 M/mcL LAB HEMETOLOGY METHOD 05/12/2024 11:10 AM [facility] Hemoglobin 14.6 11.5 - 16.0 g/dL LAB HEMETOLOGY METHOD 05/12/2024 11:10 AM [facility] LAB Hematocrit 46.7 35.0 - 47.0 % LAB HEMETOLOGY METHOD 05/12/2024 11:10 AM [facility] MCV 91.4 79.0 - 98.0 FL LAB HEMETOLOGY METHOD 05/12/2024 11:10 AM [facility] MCH 28.6 27.0 - 32.0 pcg LAB HEMETOLOGY METHOD 05/12/2024 11:10 AM [facility] MCHC 31.3(L) 32.0 - 37.0 g/dL LAB HEMETOLOGY METHOD 05/12/2024 11:10 AM [facility] RDW 16.3(H) 11.0 - 15.0 % LAB HEMETOLOGY METHOD 05/12/2024 11:10 AM [facility] LAB Platelets 209 130 - 400 K/mcL LAB HEMETOLOGY METHOD 05/12/2024 11:10 AM [facility] LAB MPV 10.7 7.0 - 11.0 FL LAB HEMETOLOGY METHOD 05/12/2024 11:10 AM [facility] NRBC 0.0 <1.0 % LAB HEMETOLOGY METHOD 05/12/2024 11:10 AM [facility] LAB NRBC Absolute 0.00 <0.10 K/mcL LAB HEMETOLOGY METHOD 05/12/2024 11:10 AM EST [facility] LAB Blood Venous blood specimen / Unknown Venipuncture / Unknown 05/12/2024 8:21 AM EST 05/12/2024 10:56 AM EST us Yared Weaver MD LAB BLOOD ORDERABLES Final Resul t [facility] [address] [place] [address], documented in this encounter Visit Diagnoses Diagnosis Atherosclerotic heart disease of [place] coronary artery without angina pectoris documented in this encounter Care Teams Laser Specialist Relationship Specialty Start Date End Date Name, MD Bobby [address] [place], [place] PCP - General Internal Medicine 04/01/18 documented as of this encounter
--- OUTSIDE RECORDS SUMMARY | 2024-12-04 11:30 | XMS_ITS | Encounter Summary ---
Author Organization [employer] Address [address] [place] [address] Care Team Providers Care Data Virtualization Consultant Name Role Phone Name, Bobby GRADY Primary Care Provider [phone] Encounter Details Date Type Department Care Team (Late st Contact Info) Description 05/08/2024 Lab Requisition [facility] - Main Lab [address] [place] [address] Yared Weaver MD [address] [place] [address], [phone] Hypothyroidism, unspecified Social History Tobacco Use [...] LAB CHEMISTRY METHOD 05/09/2024 1:03 PM EST [facility] Blood Venous blood specimen / Unknown Venipuncture / Unknown 05/09/2024 5:33 AM EST 05/09/2024 11:27 AM EST us Yared Weaver MD LAB BLOOD ORDERABLES Final Resul t [facility] [address] [place] [address], documented in this encounter Visit Diagnoses Diagnosis Hypothyroidism, unspecified documented in this encounter Care Teams Data Virtualization Consultant Relationship Specialty Start Date End Date Name, MD Bobby [address] [place], [place] PCP - General Internal Medicine 04/01/18 documented as of this encounter
--- OUTSIDE RECORDS SUMMARY | 2024-12-04 11:30 | XMS_ITS | Encounter Summary ---
Author Organization [employer] Address [address] [place] [address] 7t [place] [address] Care Team Providers Care Credit Risk Analyst Name Role Phone Name, Bobby GRADY Primary Care Provider [phone] Inga Magaña PharmD Unavailable Reason for Visit * Reason Comments Med Refill Encounter Details Date Type Department Care Team (Late st Contact Info) Description 04/07/2022 Refill [facility] [address] [facility] [place] [address] Sherly Pichardo, SURGERY SPECIALIST [address] [place] [address] Chronic low back pain with sciatica, sciatica [...] Care Team (Late st Contact Info) Description 01/25/2025 9:30 AM EDT Office Visit [facility] [address] [place] [address] Name, MD Bobby Lamont [facility] [place] [address] 02/10/2025 9:30 AM EST Telemedicine [facility] [address] [place] [address] Skye Melton, HODA 03/14/2025 10:00 AM EST Office Visit [facility] OPTOMETRY [address] [place] [address] Abbey Deng, KIKA [address] [place] [address] documented as of this encounter Visit Diagnoses Diagnosis Chronic low back pain with sciatica, sciatica laterality unspecified, unspecified back pain laterality documented in this encounter Additional Health Concerns Assessment Noted Time PHQ-9 Depression Total Score: 0 03/11/20 22 11:47 AM EST documented as of this encounter Care Teams Credit Risk Analyst Relationship Specialty Start Date End Date Name, [place] [address] PCP - General Family Medicine 06/01/15 Inga Magaña PharmD [address] [place] [address] Pharmacist Internal Medicine 01/07/23 09/29/23 Eloina 05/13/24 documented as of this encounter
--- OUTSIDE RECORDS SUMMARY | 2024-12-04 11:30 | XMS_ITS | Encounter Summary ---
Author Organization [employer] Address [address] [facility] 7t [place] [address] Care Team Providers Care Wound Care Technician Name Role Phone Name, Bobby GRADY Primary Care Provider [phone] Inga Magaña PharmD Unavailable [phone] Reason for Visit * Reason Comments Med Change Request Encounter Details Date Type Department Care Team ([facility] st Contact Info) Description 06/09/2023 Refill [facility] [address] [place] [address] Name, MD Bobby [address] [place] [address] Social History Tobacco Use Types Packs/Day Years [...] Description 01/25/2025 9:30 AM EDT Office Visit [facility] [address] [place] [address] Name, MD Bobby [address] [place] [address] 02/10/2025 9:30 AM EST Telemedicine [facility] [address] [place] [address] Skye Melton, HODA 03/14/2025 10:00 AM EST Office Visit [facility] OPTOMETRY [address] [place] [address] Abbey Deng, OD [address] [place] [address] documented as of this encounter Goals Goal Patient Goal Type Associated Problems Recent Progress Patient-Stated? Author Smoking cessation General No Inga Magaña, PharmD documented as of this encounter Visit Diagnoses Not on filedocumented in this encounter Additional Health Concerns Assessment Noted Time PHQ-9 Depression Total Score: 0 03/11/20 11:47 AM EST documented as of this encounter Care Teams Wound Care Technician Relationship Specialty Start Date End Date NameBobby MD [address] [place] [address] PCP - General Family Medicine 06/01/15 Inga aMgaña, PharmD [address] [place] [address] Pharmacist Internal Medicine 01/07/23 09/29/23 Eloina 05/13/24 documented as of this encounter
--- OUTSIDE RECORDS SUMMARY | 2024-12-04 11:30 | XMS_ITS | Encounter Summary ---
Author Organization [employer] Address [address] [place] [address] Care Team Providers Care White Shoe Ragger Name Role Phone Name, Bobby GRADY Primary Care Provider Encounter Details Date Type Department Care Team (Latest Contact Info) Description 05/04/[address] [facility] [address] [place] [address] Yared Weaver MD [address] [place] [address], [phone] Atherosclerotic heart disease of [place] coronary artery without angina pectoris Social History [...] 5:05 AM EST Atherosclerotic heart disease of [place] coronary artery without angina pectoris BASIC METABOLIC PANEL Routine 05/05/2024 5:05 AM EST Atherosclerotic heart disease of [place] coronary artery without angina pectoris documented in this encounter Results * (ABNORMAL) Basic metabolic panel (05/05/2024 5:05 AM EST) Sodium 144 133 - 145 mmol/L LAB CHEMISTRY METHOD 05/05/2024 11:[address] [facility] Potassium 3.9 3.5 - 5.5 mmol/L LAB CHEMISTRY METHOD 05/05/2024 11:28 AM [facility] Chloride 103 96 - 110 mmol/L LAB CHEMISTRY METHOD 05/05/2024 11:28 AM [facility] CO2 34(H) 21 - 32 mmol/L LAB CHEMISTRY METHOD 05/05/2024 11:28 AM [facility] Anion Gap 7 3 - 11 LAB CHEMISTRY METHOD 05/05/2024 11:28 AM [facility] Glucose 101(H) 70 - 100 mg/dL LAB CHEMISTRY METHOD 05/05/2024 11:28 AM [facility] BUN 19 5 - 25 mg/dL LAB CHEMISTRY METHOD 05/05/2024 11:28 AM [facility] Creatinine 0.71 0.50 - 1.10 mg/dL LAB CHEMISTRY METHOD 05/05/2024 11:28 AM [facility] eGFR 95 >=60 mL/min/1. 73m2 LAB CHEMISTRY METHOD 05/05/2024 11:28 AM [facility] Comment:Calculation based on the Chronic Kidney Disease Epidemiology Collaboration (CKD-EPI) equation refit without adjustment for race. BUN/Creatinine Ratio 26.8 LAB CHEMISTRY METHOD 05/05/2024 11:28 AM [facility] Calcium 8.0(L) 8.5 - 10.5 mg/dL LAB CHEMISTRY METHOD 05/05/2024 11:28 AM [facility] Blood Venous blood specimen / Unknown Venipuncture / Unknown 05/05/2024 5:05 AM EST 05/05/2024 9:37 AM EST us Yared Weaver MD LAB BLOOD ORDERABLES Final Resul t [facility] [address] [place] [address], * (ABNORMAL) Complete blood count (05/05/2024 5:05 AM EST) [facility] WBC 13.8(H) 4.8 - 10.8 K/mcL LAB HEMETOLOGY METHOD 05/05/2024 11:24 AM [facility] RBC 5.30(H) 3.80 - 4.80 M/mcL LAB HEMETOLOGY METHOD 05/05/2024 11:24 AM [facility] Hemoglobin 15.0 11.5 - 16.0 g/dL LAB HEMETOLOGY METHOD 05/05/2024 11:24 AM [facility] Hematocrit 47.2(H) 35.0 - 47.0 % LAB HEMETOLOGY METHOD 05/05/2024 11:24 AM [facility] MCV 89.6 79.0 - 98.0 FL LAB HEMETOLOGY METHOD 05/05/2024 11:24 AM [facility] MCH 28.5 27.0 - 32.0 pcg LAB HEMETOLOGY METHOD 05/05/2024 11:24 AM [facility] MCHC 31.8(L) 32.0 - 37.0 g/dL LAB HEMETOLOGY METHOD 05/05/2024 11:24 AM [facility] RDW 15.9(H) 11.0 - 15.0 % LAB HEMETOLOGY METHOD 05/05/2024 11:24 AM [facility] Platelets 184 130 - 400 K/mcL LAB HEMETOLOGY METHOD 05/05/2024 11:24 AM [facility] MPV 12.0(H) 7.0 - 11.0 FL LAB HEMETOLOGY METHOD 05/05/2024 11:24 AM [facility] NRBC 0.0 <1.0 % LAB HEMETOLOGY METHOD 05/05/2024 11:24 AM [facility] NRBC Absolute 0.00 <0.10 K/mcL LAB HEMETOLOGY METHOD 05/05/2024 11:24 AM EST [facility] Blood Venous blood specimen / Unknown Venipuncture / Unknown 05/05/2024 5:05 AM EST 05/05/2024 9:37 AM EST us Yared Weaver MD LAB BLOOD ORDERABLES Final Resul t [facility] [address] [place] [address], documented in this encounter Visit Diagnoses Diagnosis Atherosclerotic heart disease of [place] coronary artery without angina pectoris documented in this encounter Care Teams White Shoe Ragger Relationship Specialty Start Date End Date Name, MD Bobby [address] [place], [place] PCP - General Internal Medicine 04/01/18 documented as of this encounter
--- OUTSIDE RECORDS SUMMARY | 2024-12-04 11:31 | XMS_ITS | Encounter Summary ---
Author Organization [employer] Address [address] [facility] 7t [place] [address] Care Team Providers Care Steel Fabricating Supervisor Name Role Phone Name, Bobby GRADY Primary Care Provider [phone] Reason for Visit * Reason Comments Med Refill Encounter Details Date Type Department Care Team ([facility] Contact Info) Description 07/20/2024 Refill [facility] [address] [place] [address] Sherly Pichardo FNP [address] [place] [address] Social History Tobacco Use Types Packs/Day Years [...] Description 01/25/2025 9:30 AM EDT Office Visit [facility] [address] [place] [address] Name, MD Bobby [address] [place] [address] 02/10/2025 9:30 AM EST Telemedicine [facility] [address] [place] [address] Skye Melton, HODA 03/14/2025 10:00 AM EST Office Visit [facility] OPTOMETRY [address] [place] [address] Abbey Deng OD [address] [place] [address] documented as of this encounter Goals Goal Patient Goal Type Associated Problems Recent Progress Patient-Stated? Author Smoking cessation General No Inga Magaña, PharmD documented as of this encounter Visit Diagnoses Not on filedocumented in this encounter Additional Health Concerns Assessment Noted Time PHQ-9 Depression Total Score: 0 06/19/19 24 10:09 AM EDT documented as of this encounter Care Teams Steel Fabricating Supervisor Relationship Specialty Start Date End Date Name, MD Bobby [address] [place] [address] PCP - General Family Medicine 06/01/15 Eloina 05/13/24 documented as of this encounter
--- OUTSIDE RECORDS SUMMARY | 2024-12-04 11:31 | XMS_ITS | Encounter Summary ---
Author Organization [employer] Address [address] [place] [address] 7[place] [address] Care Team Providers Care Farm Management Teacher Name Role Phone Name, Bobby GRADY Primary Care Provider Inga Magaña PharmD Unavailable [phone] Encounter Details Date Type Department Care Team (Late st Contact Info) Description 03/05/2022 Telephone [facility] MEDICINE [address] [place] [address] Monisha Linton CNM [address] [place] [address] Social History Tobacco Use Types Packs/Day Years [...] Description 01/25/2025 9:30 AM EDT Office Visit [facility] MED[facility]INE [address] [place] [address] Name, MD Bobby [address] [place] [address] 02/10/2025 9:30 AM EST Telemedicine [facility] MEDICINE [address] [place] [address] [phone] Skye Melton, HODA 03/14/2025 10:00 AM EST Office Visit [facility] OPTOMETRY [address] [place], [place] [phone] Abbey Deng, OD [address] [place] [address] documented as of this encounter Visit Diagnoses Not on filedocumented in this encounter Care Teams Farm Management Teacher Relationship Specialty Start Date End Date Name, MD Bobby 230 [place] [address] PCP - General Family Medicine 06/01/15 Inga Magaña PharmD [address] [place] [address] [phone] Pharmacist Internal Medicine 01/07/23 09/29/23 Eloina 05/13/24 documented as of this encounter
--- OUTSIDE RECORDS SUMMARY | 2024-12-04 11:31 | XMS_ITS | Encounter Summary ---
Author Organization [employer] Address [address] [place] [address] [place], [place] [address] Care Team Providers Care Gas Specialist Name Role Phone Name, Bobby GRADY Primary Care Provider [phone] Inga Magaña PharmD Unavailable [phone] Reason for Referral * Imaging (Routine) - Closed Specialty Diagnoses / Procedures Referred By Contac t Referred To Contact Diagnoses Other ovarian cyst, right side Procedures US Pelvis Transvaginal Monisha Linton CNM [address] [place] [address] Phone: tel: fax: [facility] MRI and CT Scan [address] [place] [address] Phone: tel: fax: Referral ID Status Reason Start Date Expiration Date Visits Re quested Visits Authorized [id number] Closed 04/01/2022 09/28/2022 1 1 Encounter Details Date Type Department Care Team ([facility] st Contact Info) Description 04/01/2022 Orders Only [facility] MEDICINE [address] [place], [place] [phone] Monisha Linton CNM [address] [place], [place] [phone] Other ovarian cyst, right side (Primary Dx) [...] Description 01/25/2025 9:30 AM EDT Office Visit [facility] MEDICINE [address] [place] [phone] Name, MD Bobby [address] [place] [address] 02/10/2025 9:30 AM EST Telemedicine [facility] MEDICINE [address] [place] [address] Skye Melton, HODA 03/14/2025 10:00 AM EST Office Visit [facility] OPTOMETRY [address] [place] [address] Abbey Deng, OD [address] [place] [address] Scheduled Orders Name Type Priority Associated Diagnoses [...] documented as of this encounter Care Teams Gas Specialist Relationship Specialty Start Date End Date Name, MD Bobby [address] [place] [address] PCP - General Family Medicine 06/01/15 Inga Magaña, MiltonD 230 [place] [address] Pharmacist Internal Medicine 01/07/23 09/29/23 Eloina 05/13/24 documented as of this encounter
--- OUTSIDE RECORDS SUMMARY | 2024-12-04 11:31 | XMS_ITS | Encounter Summary ---
Author Organization [employer] Address [address] [facility] 7t [place] [address] Care Team Providers Care Molder Automobile Carpets Name Role Phone Name, Bobby GRADY Primary Care Provider [phone] Inga Magaña PharmD Unavailable [phone] Reason for Visit * Reason Onset Date Comments Med Refill 01/20/2023 Encounter Details Date Type Department Care Team ([facility] st Contact Info) Description 01/20/2023 Telephone [facility] MEDICINE [address] [place] [address] Name, MD Bobby [address] [place] [address] Med Refill Social History Tobacco Use Types [...] Description 01/25/2025 9:30 AM EDT Office Visit [facility] MEDICINE [address] [place] [address] Name, MD Bobby [address] [place] [address] 02/10/2025 9:30 AM EST Telemedicine [facility] MEDICINE [address] [place] [address] [phone] Skye Melton, RN 03/14/2025 10:00 AM EST Office Visit [facility] OPTOMETRY [address] [place], [place] [phone] Abbey Deng OD [address] [place] [address] documented as of this encounter Goals Goal Patient Goal Type Associated Problems Recent Progress Patient-Stated? Author Smoking cessation General No Inga Magaña, Lucio documented as of this encounter Visit Diagnoses Not on filedocumented in this encounter Additional Health Concerns Assessment Noted Time PHQ-9 Depression Total Score: 0 03/11/20 22 11:47 AM EST documented as of this encounter Care Teams Molder Automobile Carpets Relationship Specialty Start Date End Date Name, MD Bobby [address] [place] [address] PCP - General Family Medicine 06/01/15 Inga Magaña, MiltonD [address] [place] [address] Pharmacist Internal Medicine 01/07/23 09/29/23 Eloina 05/13/24 documented as of this encounter
--- OUTSIDE RECORDS SUMMARY | 2024-12-04 11:31 | XMS_ITS | Encounter Summary ---
Author Organization [employer] Address [address] [place] [address] 7 [place] [address] Care Team Providers Care Outside Plant Cable Engineer Name Role Phone Name, Bobby GRADY Primary Care Provider [phone] Reason for Visit * Reason Onset Date Comments Hospital Follow-up 05/17/2024 Encounter Details Date Type Department Care Team ([facility] st Contact Info) Description 05/17/2024 Telephone [facility] MED[facility]INE [address] [place] [address] Name, MD Bobby [address] [place] [address] Hospital Follow-up Social History Tobacco Use Types [...] from pt requesting a HDF appt. Hospital: [facility] transported Date of admission: 04/06/2024 Discharge date: 05/12/2024 Diagnosed: RSV , Influenza A+B , COPD *Send message to [place] Clinical Care Coordinators documented in this encounter Plan of Treatment Upcoming Encounters Date Type Department Care Team (Late st Contact Info) Description 01/25/2025 9:30 AM EDT Office Visit [facility] [address] [place] [address] Name, MD Bobby [address] [place] [address] 02/10/2025 9:30 AM EST Telemedicine [facility] MED[facility]INE [address] [place] [address] Skye Melton, RN 03/14/2025 10:00 AM EST Office Visit [facility] OPTOMETRY [address] [place] [address] Abbey Deng, OD [address] [place] [address] documented as of this encounter Goals Goal Patient Goal Type Associated Problems Recent Progress Patient-Stated? Author Smoking cessation General Inga Radford, PharmD documented as of this encounter Visit Diagnoses Not on filedocumented in this encounter Additional Health Concerns Assessment Noted Time PHQ-9 Depression Total Score: 0 06/19/19 24 10:09 AM EDT documented as of this encounter Care Teams Outside Plant Cable Engineer Relationship Specialty Start Date End Date Name, MD Bobby [address] [place] [address] PCP - General Family Medicine 06/01/15 Eloina 05/13/24 documented as of this encounter
--- OUTSIDE RECORDS SUMMARY | 2024-12-04 11:31 | XMS_ITS | Encounter Summary ---
Author Organization [employer] Address [address] [place] [address] 7t [place] [address] Care Team Providers Care Tunneller Name Role Phone Name, Bobby GRADY Primary Care Provider Inga Magaña PharmD Unavailable Encounter Details Date Type Department Care Team (Late Contact Info) Description 09/01/2022 Abstract [facility] MEDICINE [address] [place] [phone] NameBobby MD [address] [place] [address] Social History Tobacco Use Types Packs/Day Years [...] Description 01/25/2025 9:30 AM EDT Office Visit [facility] MEDICINE [address] [place] [address] [phone] Bobby David MD [address] [place] [address] 02/10/2025 9:30 AM EST Telemedicine [facility] MEDICINE [address] [place] [address] Skye Melton, RN 03/14/2025 10:00 AM EST Office Visit [facility] OPTOMETRY [address] [place] [address] Patricksophy Abbey, OD [address] [place] [address] documented as of this encounter Visit Diagnoses Not on filedocumented in this encounter Additional Health Concerns Assessment Noted Time PHQ-9 Depression Total Score: 0 03/11/20 22 11:47 AM EST documented as of this encounter Care Teams Tunneller Relationship Specialty Start Date End Date Name, MD Bobby [address] [place] [address] PCP - General Family Medicine 06/01/15 Igna Magaña, Lucio [address] [place] [address] Pharmacist Internal Medicine 01/07/23 09/29/23 Eloina 05/13/24 documented as of this encounter
--- OUTSIDE RECORDS SUMMARY | 2024-12-04 11:31 | XMS_ITS | Clinical Summary ---
Author Organization [employer] Address [address] [place] [address] 7 [place] [address] Care Team Providers Care Senior Microstrategy Developer Name Role Phone Name, Bobby GRADY Primary Care Provider [phone] Allergies Active Allergy Reactions Criticality Noted Date [...] miscIndications: Type 2 diabetes mellitus without complications ([facility]) Check BG twice daily 100 [...] mellitus with other specified complication, unspecified whether penitentiary insulin use (CMS/HCC) USE DIRECTED FIVE TIMES DAILY 200 each Active celecoxib (CeleBREX) 200 MG capsule TAKE 1 CAPSULE BY MOUTH TWICE DAILY WITH FOOD AND A FULL GLASS OF WATER NEEDED FOR PAIN Active empagliflozin (Jardiance) 10 MG Take 1 tablet (10 mg) by mouth Once per day. 30 tablet 2024 Active Therapeutic Monitoring ServicesTouch Ultra Test test stripIndications :Type 2 diabetes mellitus without complications ([facility]) USE DIRECTED TO TEST BLOOD SUGAR THREE TIMES DAILY 50 strip 5 Active SM Calcium Citrate+Vit D3 Max tablet TAKE 1 TABLET BY MOUTH 2 TIMES DAILY 60 tablet 3 Active NovoLOG FLEXPEN 100 UNIT/ML pen INJECT 6 TO 10 UNITS SUBCUTANEOUSLY BEFORE MEALS AND SNACKS DIRECTED 15 mL 5 Active allopurinol (Zyloprim) 100 MG tablet Take 1 tablet by mouth Once per day. Active Dupixent 300 MG/2ML solution auto-injector INJECT 600 MG SUBCUTANEOUSLY ONCE, THAN 300 MG SUBCUTANEOUSLY EVERY 2 WEEKS Active nicotine (Nicoderm, Step 1) 21 MG/24HR [...] for 5 days 10 tablet 025 Active docusate sodium (Colace) 100 MG capsuleIndicatio ns:Drug-induced constipation TAKE 1 CAPSULE BY MOUTH EVERY DAY AT BEDTIME NEEDED 90 capsule 3 025 Active Combivent Respimat 20-100 MCG/ACT inhalerIndicatio ns:Chronic obstructive pulmonary disease, unspecified COPD type ([facility]/HCC) INHALE 1 PUFF 4 TIMES A DAY, MAY TAKE ADDITIONAL PUFFS NEEDED. (MAX OF 6 PUFFS PER DAY) 4 g 5 025 Active levothyroxine (Synthroid, Levoxyl) 112 MCG tablet Take 1 tablet (112 mcg) by mouth Once per day. 90 tablet 1 025 Active omeprazole (PriLOSEC) [address] capsuleIndicatio ns:Lumbar radiculopathy Do not crush or chew.TAKE 1 CAPSULE BY MOUTH TWICE DAILY 30 MINUTES BEFORE MEALS 60 capsule 025 Active baclofen (Lioresal) 10 MG tabletIndication s:Lumbar radiculopathy TAKE 1 TABLET BY MOUTH EVERY 8 HOURS NEEDED FOR MUSCLE SPASMS 45 tablet 025 Active insulin glargine (Lantus SoloStar) 100 UNIT/ML penIndications:T ype 2 diabetes mellitus with other specified complication, unspecified whether superintendent container terminal insulin use ([facility]) INJECT 40 units in the AM and 30 units in the PM 15 mL 5 025 Active pregabalin (Lyrica) 150 MG capsuleIndicatio ns:Chronic pain syndrome Take 1 capsule (150 mg) by mouth 2 times daily. 60 capsule 025 2025 Active ipratropium-albu terol (Duo-Neb) 0.5-2.5 mg/3 mL nebulizer solutionIndicati ons:Chronic obstructive pulmonary disease, unspecified ([facility]/HCC) INHALE 1 AMPULE USING A NEBULIZER FOUR TIMES DAILY 360 mL 3 025 Active Trulicity 1.5 MG/0.5ML solution auto-injectorInd ications:Type 2 diabetes with complication ([facility]),COPD exacerbation ([facility]) INJECT ONE PEN (=1.5MG) SUBCUTANEOUSLY ONCE A WEEK DIRECTED 2 mL 11 025 Active fluticasone (Flonase) 50 MCG/ACT nasal spray INSTILL 2 SPRAYS IN EACH NOSTRIL ONCE DAILY 16 g 3 025 Active oxyCODONE-acetam inophen (Percocet) 7.5-325 MG tabletIndication s:Chronic low back pain with sciatica, sciatica laterality unspecified, unspecified back pain laterality Take 1 tablet by mouth every 6 (six) hours if needed for severe pain for up to 28 days. TAKE 1 TABLET BY MOUTH EVERY 6 HOURS NEEDED FOR SEVERE PAIN Do not start before November 21, 2024. 112 tablet 025 2024 Active fluticasone (Flonase) 50 MCG/ACT nasal spray INSTILL 2 SPRAYS IN EACH NOSTRIL ONCE DAILY 16 g 3 024 2024 Discontinued dulaglutide ([facility]) 1.5 MG/0.5ML solution pen-injectorIndi cations:Type 2 diabetes with complication (CMS/HCC),COPD exacerbation (CMS/HCC) Inject 1.5 mg under the skin 1 (one) time per week. 2 mL 024 2024 Discontinued oxyCODONE-acetam inophen (Percocet) 7.5-325 [...] Active Problems Problem Noted Date Diagnosed Date Long-term current use of opiate analgesic 2024 Cervical radiculitis 06/27/2024 Cubital tunnel syndrome on [...] neoplasm o f colon 09/30/2023 CAD in burns [place] artery 09/02/2023 Opioid dependence, daily use 07/27/2023 [...] Encounters Date Type Department Care Team Description 11/25/2024 10:00 AM EDT Telemedicine [facility] [address] [place] [phone] Skye Melton RN Long-term current use of opiate analgesic 11/25/2024 Telephone [facility] [address] [place] [address] Skye Melton, HODA BPI scoring 11/25/2024 Travel 11/18/2024 Orders Only [facility] External Provider, 11/18/2024 Refill [facility] [address] [place], [place] [phone] Name, MD Bobby Chronic low back pain with sciatica, sciatica laterality unspecified, unspecified back pain laterality 11/14/2024 Telephone [facility] [address] [place] [address] NameBobby MD Durable Medical Equipment (A/C) 11/14/2024 Refill [facility] [address] [place] [phone] Bobby David MD 11/07/2024 Refill [facility] [address] [place] [phone] Bobby David MD Type 2 diabetes with complication (CMS/HCC); COPD exacerbation (CMS/HCC) 11/04/2024 Telephone [facility] [address] [place] [phone] Bobby David MD 11/04/2024 Refill [facility] [address] [place] [phone] Bobby David MD Chronic obstructive pulmonary disease, unspecified (CMS/HCC) 11/02/2024 9:30 AM EDT Office Visit [facility] [address] [place] [phone] Bobby David MD Type 2 diabetes mellitus with other specified complication, unspecified whether penitentiary insulin use (CMS/HCC) (Primary Dx); Hypertension, unspecified type; Chronic obstructive pulmonary disease, unspecified COPD type (CMS/HCC); Atelectasis; Chronic pain syndrome; Acquired hypothyroidism; Encounter for screening mammogram for malignant neoplasm of breast 11/02/2024 Telephone [facility] [address] [place] [phone] Bobby David MD FYI 11/02/2024 Travel 11/01/2024 Refill [facility] [address] [place] [address] Name, MD Bobby Lumbar radiculopathy 10/21/2024 Refill [facility] [address] [place] [address] Name, MD Bobby Chronic low back pain with sciatica, sciatica laterality unspecified, unspecified back pain laterality 10/05/2024 Refill [facility] [address] [place] [address] Name, MD oBbby Lumbar radiculopathy 09/21/2024 Refill [facility] [address] [place] [address] Name, MD Bobby Chronic low back pain [...] Answer Date Recorded Patient Health Questionnaire-9 Score 5 11/02/2024 Patient Health Questionnaire-9 Score 5 11/02/2024 Last PHQ-9: Questionnaire Data Not on file 0 11/02/2024 Housing Stability Answer Date Recorded What is your housing situation today? I have marian hancock 11/02/[address] you li ve. Do you have problems with any of the following? None of the above 11/02/2024 Food Insecurity Answer Date Recorded Within the past 12 months, y ou worried that your food would run out before you got money to buy more: Never True 11/02/2024 Within the past 12 months,th e food you bought just didn't last and you didn't have enough money to get more: Never True 08/2024 Transportation Answer Date Recorded In the past 12 months, has l ack of transportation kept you from medical appts, meetings, work or from getting things needed for daily living? No 11/02/2024 Utilities Answer Date Recorded In the past 12 months, has t he electric, gas, oil or water company threatened to shut off services in your home? No 11/02/2024 Depression Answer Date Recorded Patient Health Questionnaire-2 Score 0 11/02/2024 Internet Access Answer Date Recorded Internet Access Q1 Yes 11/02/2024 Internet Access Q2 Not on file 11/02/2024 Comments Unknown Sex and Gender Information Value Date Recorded Sex Assigned at Female 01/27/2022 10:21 AM EDT Legal Sex Female 10:21 AM EDT Gender Identity Female 01/27/2022 10:21 AM EDT Sexual Orientation Straight 01/27/2022 10 :21 AM EDT Last Filed Vital Signs Vital Sign Reading Time Taken Comments Blood Pressure 138/89 11/02/2024 10:09 AM EDT Pulse 85 11/02/2024 9:43 AM EDT Temperature 36.6 C (97.8 F) 07/06/2024 11:00 AM EDT Respiratory Rate 16 11/02/2024 9:43 AM EDT Oxygen Saturation 98% 07/06/2024 11:00 AM EDT Inhaled Oxygen Concentration - - Weight 75.3 kg (166 lb) 11/02/2024 9:43 AM EDT Height 165.1 cm (5' 5 ) 11/02/2024 9:43 AM EDT Body Mass Index 27.62 11/02/2024 9:43 AM EDT Plan of Treatment Upcoming Encounters Date Type Department Care Team (Late st Contact Info) Description 01/25/2025 9:30 AM EDT Office Visit [facility] [address] [place] [phone] Name, MD Bobby [address] [place] [address] 02/10/2025 9:30 AM EST Telemedicine [facility] [address] [place] [phone] Skye Melton RN 03/14/2025 10:00 AM EST Office Visit [facility] [address] [place] [address] Abbey Deng, OD [address] [place] [address] Health Maintenance Due Date Last Done Comments [...] 02/27/2021, 03/03/2018 Pap Smear 02/28/2024 02/27/2021, 02/27/2021 Influenza Vaccine (#1) 2024 , 12/10/2023, 01/07/2023, Additional history exists Diabetes: Urine Protein Screening 12/28/2024 12/29/2023, 08/28/2021, 10/30/2020 Lipid Panel 12/28/2024 12/29/2023, 08/28/2021 Diabetes: Hemoglobin A1C 02/02/2025 025, 06/22/2024, 05/31/2024, Additional history exists Disability Screening 07/06/2025 07/06/2024 Colonoscopy 07/16/2025 07/16/2022 Colorectal Cancer Screening 07/16/2025 Alcohol/Substance Use Screening 11/02/2025 11/02/2024 Depression Screening 11/02/2025 11/02/2024, 11/03/19 25 Diabetes: Foot Exam 11/02/2025 11/02/2024, 11/02/2024, 11/02/2024, Additional history exists SDOH Screening 11/02/2025 11/02/2024 Tobacco Screening 11/02/2025 11/02/2024 DTaP/Tdap/Td Vaccines (4 - Td or Tdap) 11/07/2032 11/07/2022, 06/12/2009, 06/12/2009 Pneumococcal Vaccine: 50+ Years Completed 11/07/2022, 11/07/2022, 05/23/2019, Additional history exists Zoster Vaccines Completed 01/07/2023, 12/28, 11/07/2022, Additional history exists COVID-19 Vaccine Completed 01/05/2024, [...] Procedure Name Priority Date/Time Associated Diagnosis Comments CT CHEST WO CONTRAST Routine 11/19/2024 7:06 PM EDT POCT GLYCATED HEMOGLOBIN, TOTAL Routine 11/02/2024 9:46 AM EDT Type 2 diabetes mellitus with other specified complication, unspecified whether penitentiary insulin use (CMS/HCC) POCT GLUCOSE Routine 11/02/2024 9:44 AM EDT Type 2 diabetes mellitus with other specified complication, unspecified whether penitentiary insulin use (CMS/HCC) XR CHEST 2 VIEWS Routine 09/16/2024 10:2 4 AM EDT ALBUMIN, RANDOM URINE W/CREATININE Routine 12/29/2023 11:20 AM EDT Type 2 diabetes with complication (CMS/HCC) Atherosclerosis of coronary artery of burns pa[place] heart, unspecified vessel or lesion type, unspecified whether angina present Pain of toe of left foot LIPID PANEL, STANDARD Routine 12/29/2023 11:17 AM EDT Type 2 diabetes with complication (CMS/HCC) Atherosclerosis of coronary artery of burns [place] heart, unspecified vessel or lesion type, unspecified [...] Recently Relevant to Health Maintenance Results * CT Chest w/o Contrast (11/19/2024 7:06 PM EDT) Anatomical Region Laterality Modality Body, Chest Computed Tomogra phy 11/19/2024 7:06 PM EDT Narrative 11/19/2024 7:07 PM EDT [place] [address] CT Scan Report Signed Patient: Marita Zapata MR#: [id number] : 1960 Acct:[id number] Age/Sex: 63 / F ADM Date: 11/18/24 Loc: HO.CT Attending Dr: Fidel White MD Ordering Physician: Fidel White MD Date of Service: 11/18/24 Procedure(s): CT chest wo IV con Accession Number(s): [id number] cc: Bobby David MD; Fidel White MD Report Number: [id number]: Total DLP = 160.00 mGy-cm CLINICAL HISTORY: J98.11 - Atelectasis CT chest without IV contrast. COMPARISON: CT chest dated 08/16/24 at 08:[address] chest dated 06/09/23 at 07:33 EDT FINDINGS: No supraclavicular or axillary lymphadenopathy. Ascending aorta and main pulmonary artery are normal in caliber. No pericardial effusion. Coronary artery calcifications present within the LAD, RCA and circumflex. No pericardial effusion. Normal esophagus. No mediastinal lymphadenopathy. No pleural effusion. Persistent atelectasis with bronchiectasis in the right middle lobe, similar to prior imaging although progressed since imaging performed in 2023. Trachea and central airways are clear. No significant bronchial wall thickening. Right upper lobe 5 mm pulmonary nodule (series 5, image 54), stable. No new or growing pulmonary nodule. Nonobstructing 2 mm left renal calculus. Flowing marginal osteophytes along the mid to lower thoracic spine. No acute fracture or suspicious bone lesion IMPRESSION: 1. Persistent atelectasis with bronchiectasis in the right middle lobe consistent with right middle lobe syndrome. This has progressed since imaging performed in 2023 but appears stable since prior imaging. 2. Coronary artery atherosclerosis. 3. Stable right upper lobe 5 mm pulmonary nodule. Given stability since 2023, no further specific follow-up recommendations. No new or growing pulmonary nodule. This document has been electronically signed by: Nikko Keenan MD on 11/19/2024 19:06:50 Dictated By: Nikko Keenan MD Signed By: <Electronically signed by Nikko Keenan MD in OV> 11/19/241906 DD/ 05 TD/TT: 11/19/241905 Administrative Professional: Procedure Note Donotuseinterpreter, Image - 11/19/[address] [place] [address] [address] Scan Report Signed Patient: Marita Zapata MMR#: [id number] : 1960Acct:[id number] Age/Sex: 63 / FADM Date: 11/18/24 Loc: .CT Attending Dr: Fidel White MD Ordering Physician: Fidel White MD Date of Service: 11/18/24 Procedure(s): CT chest wo IV con Accession Number(s): [id number] cc: Bobby David MD; Fidel White MD Report Number: [id number]: Total DLP = 160.00 mGy-cm CLINICAL HISTORY: J98.11 - Atelectasis CT chest without IV contrast. COMPARISON: CT chest dated 08/16/24 at 08:[address] chest dated 06/09/23 at 07:33 EDT FINDINGS: No supraclavicular or axillary lymphadenopathy. Ascending aorta and main pulmonary artery are normal in caliber. No pericardial effusion. Coronary artery calcifications present within the LAD, RCA and circumflex. No pericardial effusion. Normal esophagus. No mediastinal lymphadenopathy. No pleural effusion. Persistent atelectasis with bronchiectasis in the right middle lobe, similar to prior imaging although progressed since imaging performed in 2023. Trachea and central airways are clear. No significant bronchial wall thickening. Right upper lobe 5 mm pulmonary nodule (series 5, image 54), stable. No new or growing pulmonary nodule. Nonobstructing 2 mm left renal calculus. Flowing marginal osteophytes along the mid to lower thoracic spine. No acute fracture or suspicious bone lesion IMPRESSION: 1. Persistent atelectasis with bronchiectasis in the right middle lobe consistent with right middle lobe syndrome. This has progressed since imaging performed in 2023 but appears stable since prior imaging. 2. Coronary artery atherosclerosis. 3. Stable right upper lobe 5 mm pulmonary nodule. Given stability since 2023, no further specific follow-up recommendations. No new or growing pulmonary nodule. This document has been electronically signed by: Nikko Keenan MD on 11/19/2024 19:06:50 Dictated By: Nikko Keenan MD Signed By: <Electronically signed by Nikko Keenan MD in OV> 11/19/241906 DD/ 05 TD/TT: 11/19/241905 Administrative Professional: [facility] External Provider IMG CT PROCEDURES Final Result * (ABNORMAL) POCT HGB A1C (11/02/2024 9:46 AM EDT) Hemoglobin A1C 8.2(A) 4.0 - 5.7 % QC Media Lot # [id number] Lot# Expiration Date Blood 11/02/2024 9:46 AM EDT us Bobby David MD POINT OF CARE TEST ENTER/EDIT OR DERABLES Final Result * POCT Glucose (11/02/2024 9:44 AM EDT) Glucose Blood, POC 182 60 - 200 mg/dL QC Media Lot # [id number] Lot# Expiration Date ,025 Blood Capillary blood specimen / Unknown 11/02/2024 9:44 AM EDT us Bobby David MD POINT OF CARE TEST ENTER/EDIT OR DERABLES Final Result * XR Chest 2 Views (09/16/2024 10:24 AM EDT) Anatomical Region Laterality Modality Chest Radiographic Ludivina ging 09/16/2024 10:2 4 AM EDT Narrative 09/16/2024 10:25 AM EDT [address] [address] XRay Report Signed Patient: Marita Zapata MR#: [id number] : 1960 Acct:[id number] Age/Sex: 63 / F ADM Date: 09/15/24 Loc: HO.XRAY Attending Dr: Fidel White MD Ordering Physician: Fidel White MD Date of Service: 09/15/24 Procedure(s): XR chest 2V Accession Number(s): [id number] cc: Name,Bobby GRADY; Fidel White MD CLINICAL HISTORY: R07.9 - Chest pain, unspecified 2 view chest x-ray Comparison: CR/SR - XR CHEST 2V - 07/05/24 11:22 EDT Findings: Persistent but improving density along the right middle lobe. No effusion or pneumothorax. Cardiac and mediastinal contours are stable. Heart size is normal. No acute fracture. IMPRESSION: Persistent but improving right middle lobe density seen best on the lateral view. This document has been electronically signed by: Montez Andre MD on 09/16/2024 10:24:05 Dictated By: Montez Andre MD Signed By: <Electronically signed by Montez Andre MD in OV> 09/16/24 1024 DD/ 1024 TD/TT: 09/16/24 1024 Administrative Professional: Procedure Note Donotuseinterpreter, Image - 09/16/[address] [address] XRay Report Signed Patient: Marita Zapata MMR#: [id number] : 1960Acct:[id number] Age/Sex: 63 / FADM Date: 09/15/24 Loc: HO.XRAY Attending Dr: Fidel hWite MD Ordering Physician: Fidel White MD Date of Service: 09/15/24 Procedure(s): XR chest 2V Accession Number(s): [id number] cc: Bobby David MD; Fidel White MD CLINICAL HISTORY: R07.9 - Chest pain, unspecified 2 view chest x-ray Comparison: CR/SR - XR CHEST 2V - 07/05/24 11:22 EDT Findings: Persistent but improving density along the right middle lobe. No effusion or pneumothorax. Cardiac and mediastinal contours are stable. Heart size is normal. No acute fracture. IMPRESSION: Persistent but improving right middle lobe density seen best on the lateral view. This document has been electronically signed by: Montez Andre MD on 09/16/2024 10:24:05 Dictated By: Montez Andre MD Signed By: <Electronically signed by Montez Andre MD in OV> 09/16/24 1024 DD/ 1024 TD/TT: 09/16/24 1024 Administrative Professional: [facility] External Provider IMG XR PROCEDURES Final Result * (ABNORMAL) Albumin, Random Urine W/Creatinine (12/29/2023 11:20 AM EDT) Creatinine, Urine 157.96 mg/dL [facility] Microalbumin Urine 47.0 mg/L [facility] Microalbum Creatinine Ratio Ur 29.7(H) <30 ug/mg cr [facility] Comment:Albumin/Creatinine R atio Reference Ranges: Normal: < 30 ug/mg creatinine Microalbuminuria: 30 - 300 ug/mg creatinineClinical Albuminuria: > 300 ug/mg creatinine Urine (Urine, Random) 12/29/2023 11:20 AM EDT 12/29/2023 1:01 PM EDT Bobby David MD LAB URINE ORDERABLES Final Resul t [facility] [address] [place] [phone] * (ABNORMAL) Lipid Panel, Standard (12/29/2023 11:17 AM EDT) Triglycerides 172(H) <150 mg/dL [facility] Comment:Desirable Triglyceri de: less than 150 mg/dLBorderline High Triglyceride 150-199 mg/dLHigh Triglyceride: 200-499 mg/dLVery High Triglyceride: greater than or equal to 5OO mg/dL Cholesterol 140 <200 mg/dL [facility] Comment:Desirable Cholestero l: less than 200 mg/dLBorderline High Cholesterol: 200-239 mg/dLHigh Cholesterol: greater than 239 mg/dL LDL Cholesterol Calculated 61 <100 mg/dL [facility] Comment:Desirable LDL: less than 100 mg/dLNear Optimal/Above Optimal LDL: 110- 129 mg/dLBorderline High LDL: 130-159 mg/dLHigh LDL: 160-189 mg/dLVery High LDL: greater than or equal to 190 mg/dL HDL Cholesterol 45 >40 mg/dL [facility] Comment:Desirable HDL: great er than 40 mg/dL Note: This HDL assay may give artificially low results in patients with liver disease. Blood Venous blood specimen / Unknown 12/29/2023 11:17 AM EDT 12/29/2023 1:03 PM EDT us Bobby David MD LAB BLOOD ORDERABLES Final Resul t [facility] [address] [place] [address] [phone] * (ABNORMAL) Hm Colonoscopy (07/16/2022) Colonoscopy Abnormal( A) Normal Comment:repeat in 3-5 yrs us Historical Provider HEALTH MAINTENANCE Final Result * Mammography Report 1 (04/24/2021 10:00 AM EST) Anatomical Region Laterality Modality Breast Bilateral Mammography 04/24/2021 10:0 0 AM EST Narrative 04/24/2021 4:52 PM EST Refer to the Notes tab for result details Legacy Procedure: Mammography Report 1 Procedure Note Provider, Historical, - 06/22/2022 Refer to the Notes tab [...] [facility] Comment: EXPLANATORY NOTE: The Pap is a screening test for cervical cancer. It is not a diagnostic test and is subject to false negative and false positive results. It is most reliable when a satisfactory sample, regularly obtained, is submitted with relevant clinical findings and history, and when the Pap result is evaluated along with historic and current clinical information. COMMENT: This Pap test has been evaluated with computer assisted technology. [facility] Doctor Of Nurse Anesthesia: SEE COMMENT [facility] Comment: CULP, CT(ASCP) CT screening location: [place] [address] HPV nRNA E6/E7 Not Detected Not Detected [facility] Comment: Methodology: Quality Analyst-Mediated Amplification This assay detects E6/E7 viral messenger RNA (mRNA) from 14 high-risk HPV types (16,18,31,33,35,39,45,51,52,56,58,59,66,68). The analytical performance characteristics of this assay have been determined by [employer]. The modifications have not been cleared or approved by the FDA. This assay has been validated pursuant to the CLIA regulations and is used for clinical purposes. For additional information, please refer to http://education.Ritani.Melinta/faq/UNG303b8 (This link if provided for information/ educational purposes only.) Interpretation/Re sult: Negative for intraepithelial lesion or malignancy. [facility] LMP: NONE GIVEN [facility] Prev. BX: HX ABNL [facility] Prev. PAP: 02/2018 [facility] SOURCE: None given [facility] Statement Of Adequacy: SEE COMMENT [facility] Comment: Satisfactory for evaluation. Endocervical/transformation zone component present. 02/27/2021 10:2 4 AM EST us Monisha Royer CNM LAB PATHOLOGY ORDERABLES Final Result [facility] [address] from Last 3 Months or Most Recently Relevant to Health Maintenance Insurance [facility] ONE CARE < 65 [place] [id number] Care Teams Senior Microstrategy Developer Relationship Specialty Start Date End Date Name, MD Bobby [address] [place] [phone] PCP - General Family Medicine 06/01/15 [place] 05/13/24
--- OUTSIDE RECORDS SUMMARY | 2024-12-04 11:31 | XMS_ITS | Encounter Summary ---
Author Organization [employer] Address [address] [place] [address] 7 [place] [address] Care Team Providers Care Gyroscopic Instrument Tester Name Role Phone Name, Bobby GRADY Primary Care Provider [phone] Inga Magaña PharmD Unavailable [phone] Reason for Visit * Reason Onset Date Comments Prior Authorization 01/21/2023 HumaLOG KWIK PEN 100 UNIT/ML injection Encounter Details Date Type Department Care Team ([facility] st Contact Info) Description 01/21/2023 Telephone [facility] [address] [place], [place] [phone] Name, MD Bobby [address] [place] [address] Prior Authorization (HumaLOG KWIKPEN 100 UNIT/ML injection) [...] Description 01/25/2025 9:30 AM EDT Office Visit [facility] [address] [place] [address] Name, MD Bobby [address] [place] [address] 02/10/2025 9:30 AM EST Telemedicine [facility] [address] [place] [address] Skye Melton RN 03/14/2025 10:00 AM EST Office Visit [facility] [address] [place] [address] Abbey Deng, OD [address] [place] [address] documented as of this encounter Goals Goal Patient Goal Type Associated Problems Recent Progress Patient-Stated? Author Smoking cessation General No Inga Magaña, PharmD documented as of this encounter Visit Diagnoses Not on filedocumented in this encounter Additional Health Concerns Assessment Noted Time PHQ-9 Depression Total Score: 0 03/11/20 22 11:47 AM EST documented as of this encounter Care Teams Gyroscopic Instrument Tester Relationship Specialty Start Date End Date Name, MD Bobby [address] [place] [address] PCP - General Family Medicine 06/01/15 Inga Magaña, MiltonD [address] [place] [address] Pharmacist Internal Medicine 01/07/23 09/29/23 Eloina 05/13/24 documented as of this encounter
--- OUTSIDE RECORDS SUMMARY | 2024-12-04 11:31 | XMS_ITS | Clinical Summary ---
Author Organization [address] Address [address] [place] [phone] Phone Care Team Providers Care Mud Cleaner Operator Name Role Phone Name, Bobby GRADY Primary Care Provider [phone] Surgical History Surgery Date Site/Laterality Comments CHOLECYSTECTOMY PROCEDURE: [place] CHOLECYSTECTOMY OTHER SURGICAL HISTORY PROCEDURE: HISTORY OTHER; COMMENT: Cardiac stent KIDNEY STONE SURGERY PROCEDURE: [place] NEPHROLITHOTOMY REMOVAL CALCULUS BREAST LUMPECTOMY Right PROCEDURE: HISTORICAL BREAST LUMPECTOMY; COMMENT: benign Medical History Medical History Date Comments Coronary atherosclerosis of unspecified type of vessel, capitan grande or graft 07/07/2011 DX:Coronary atherosclerosis of unspecified type of vessel, capitan grande or graft Hypertension 07/07/2011 DX:Hypertension Historical Medical DX 07/07/2011 DX:Hyperli pidemia LDL goal < 70 DM2 (diabetes mellitus, type 2) ([facility] V24, [facility] V28) 07/07/2011 DX:DM2 (diabetes mellitus, type 2) ([facility]) Tobacco abuse 07/07/2011 DX:Tobacco abuse Allergy-induced asthma 07/07/2011 DX:Allerg y-induced asthma Family History Medical History Relation Name Comments Breast cancer Aunt 1 maternal aunt, at 60 Breast cancer Aunt 2 paternal aunt, at 60 Other: events assistant ca Aunt 2 Colon cancer Brother at [...] Influencers of Health Screening 06/05/2023 Depression Screening 03/30/2024 Diabetes: Blood Sugar Control Test (HGBA1C) 08/03/2024 02/04/2024 Influenza Vaccine (#1) 2024 , 01/07/2023, 03/11/2022, Additional history exists Diabetes: Annual GFR (Glomerular Filtration Rate) 05/12/2025 05/12/2024, 05/05/2024, 04/29/2024, Additional history exists Hypertension/CHF/CAD Annual BMP Blood Test 05/12/2025 05/12/2024, 05/05/2024, 04/29/2024, Additional history exists Cholesterol Screening (Lipid Panel) 12/28/2028 12/29/2023 DTaP,Tdap,and Td Vaccines (4 - Td or Tdap) 11/07/2032 11/07/2022, 06/12/2009, 06/12/2009 Pneumococcal Vaccine: 50+ Years Completed 11/07/2022, 05/23/2019, 03/30/2003 Zoster Vaccines Completed 01/07/2023, 11/07/2022 COVID-19 Vaccine Completed 01/05/2024, , 03/11/2022, Additional [...] 8:21 AM EST 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 from Last 3 Months or Most Recently Relevant to Health Maintenance Results * (ABNORMAL) Basic metabolic panel (05/12/2024 8:21 AM EST) Sodium 143 133 - 145 mmol/L LAB CHEMISTRY METHOD 05/12/2024 11:22 AM [facility] Potassium 3.6 3.5 - 5.5 mmol/L LAB CHEMISTRY METHOD 05/12/2024 11:22 AM [facility] Chloride 109 96 - 110 mmol/L LAB CHEMISTRY METHOD 05/12/2024 11:22 AM EST [facility] CO2 31 21 - 32 mmol/L LAB CHEMISTRY METHOD 05/12/2024 11:22 AM [facility] Anion Gap 3 3 - 11 LAB CHEMISTRY METHOD 05/12/2024 11:22 AM [facility] Glucose 95 70 - 100 mg/dL LAB CHEMISTRY METHOD 05/12/2024 11:22 AM [facility] BUN 21 5 - 25 mg/dL LAB CHEMISTRY METHOD 05/12/2024 11:22 AM EST [facility] Creatinine 0.80 0.50 - 1.10 mg/dL LAB CHEMISTRY METHOD 05/12/2024 11:22 AM [facility] eGFR 82 >=60 mL/min/1. 73m2 LAB CHEMISTRY METHOD 05/12/2024 11:22 AM EST [facility] Comment:Calculation based on the Chronic Kidney Disease Epidemiology Collaboration (CKD-EPI) equation refit without adjustment for race. BUN/Creatinine Ratio 26.3 LAB CHEMISTRY METHOD 05/12/2024 11:22 AM [facility] Calcium 8.0(L) 8.5 - 10.5 mg/dL LAB CHEMISTRY METHOD 05/12/2024 11:22 AM [facility] Blood Venous blood specimen / Unknown Venipuncture / Unknown 05/12/2024 8:21 AM EST 05/12/2024 10:56 AM EST us Yared Weaver MD LAB BLOOD ORDERABLES Final Resul t [facility] [address] [place] [address], from Last 3 Months or Most Recently Relevant to Health Maintenance Insurance [facility] [employer] Member Subscriber Plan / Payer (Ef fective 2022-Present) Name:Marita Lawrence Relation to Subscriber:Self Name:Marita Lawrence Payer ID:[id number] Group ID:[id number] Type:Not on file Address: [place] [address] [address] [address] Care Teams Mud Cleaner Operator Relationship Specialty Start Date End Date Name, MD Bobby [address] [place], [place] PCP - General Internal Medicine 04/01/18
--- OUTSIDE RECORDS SUMMARY | 2024-12-04 11:31 | XMS_ITS | Encounter Summary ---
Author Organization [employer] Address [address] [facility] 7t [place] [address] Care Team Providers Care Driver Retraining Instructor Name Role Phone Name, Bobby GRADY Primary Care Provider [phone] Inga Magaña PharmD Unavailable [phone] Reason for Visit * Reason Onset Date Comments Med Refill 05/26/2023 Encounter Details Date Type Department Care Team (Late st Contact Info) Description 05/26/2023 Telephone [facility] [address] [place] [address] Name, MD Bobby [address] [place] [address] Med Refill Social History Tobacco Use Types [...] 7.5-325 MG tablet To be sent to: [facility] [place], [place] - [address] [place] [address] documented in this encounter Plan of Treatment Upcoming Encounters Date Type Department Care Team ([facility] st Contact Info) Description 01/25/2025 9:30 AM EDT Office Visit [facility] [address] [place] [address] Name, MD Bobby [address] [place] [address] 02/10/2025 9:30 AM EST Telemedicine [facility] [address] [place] [address] Skye Melton, RN 03/14/2025 10:00 AM EST Office Visit [facility] [address] [place] [address] Abbey Deng, KIKA [address] [place] [address] documented as of this encounter Goals Goal Patient Goal Type Associated Problems Recent Progress Patient-Stated? Author Smoking cessation General No Inga Magaña, PharmD documented as of this encounter Visit Diagnoses Not on filedocumented in this encounter Additional Health Concerns Assessment Noted Time PHQ-9 Depression Total Score: 0 03/11/20 22 11:47 AM EST documented as of this encounter Care Teams Driver Retraining Instructor Relationship Specialty Start Date End Date Name, MD Bobby [address] [place] [address] PCP - General Family Medicine 06/01/15 Inga Maagña, PharmD [address] [place] [address] Pharmacist Internal Medicine 01/07/23 09/29/23 Eloina 05/13/24 documented as of this encounter"
--- OUTSIDE RECORDS SUMMARY | 2024-12-04 11:31 | XMS_ITS | Encounter Summary ---
Author Organization [employer] Address [address] [facility] 7t [place] [address] Care Team Providers Care Casual Shoe Inspector Name Role Phone Name, Bobby GRADY Primary Care Provider [phone] Inga Magaña PharmD Unavailable [phone] Reason for Visit * Reason Comments Med Refill Encounter Details Date Type Department Care Team ([facility] st Contact Info) Description 04/28/2023 Refill [facility] [address] [place] [address] Name, MD Bobby [address] [place] [address] Social History Tobacco Use Types Packs/Day Years [...] 9:30 AM EDT Office Visit [facility] MEDICINE [address] [place] [address] Name, MD Bobby [address] [place] [address] 02/10/2025 9:30 AM EST Telemedicine [facility] MEDICINE [address] [place] [address] Skye Melton, HODA 03/14/2025 10:00 AM EST Office Visit [facility] OPTOMETRY [address] [place] [address] Abbey Deng, OD [address] [place] [address] documented as of this encounter Goals Goal Patient Goal Type Associated Problems Recent Progress Patient-Stated? Author Smoking cessation General No Inga Magaña, PharmD documented as of this encounter Visit Diagnoses Not on filedocumented in this encounter Additional Health Concerns Assessment Noted Time PHQ-9 Depression Total Score: 0 03/11/20 11:47 AM EST documented as of this encounter Care Teams Casual Shoe Inspector Relationship Specialty Start Date End Date NameBobby MD [address] [place] [address] PCP - General Family Medicine 06/01/15 Inga Magaña, PharmD [address] [place] [address] Pharmacist Internal Medicine 01/07/23 09/29/23 Eloina 05/13/24 documented as of this encounter
--- OUTSIDE RECORDS SUMMARY | 2024-12-04 11:31 | XMS_ITS | Encounter Summary ---
Author Organization [employer] Address [address] [place] [address] 7t [place] [address] Care Team Providers Care Camp Housekeeper Name Role Phone Name, Bobby GRADY Primary Care Provider [phone] Inga Magaña PharmD Unavailable [phone] Reason for Visit * Reason Comments Med Refill Encounter Details Date Type Department Care Team ([facility] Contact Info) Description 11/18/[address] [facility] [address] [place], [place] [phone] Sherly Pichardo, GEETA [address] [place], [place] [phone] Type 2 diabetes mellitus without complications (CMS/HCC) [...] Upcoming Encounters Date Type Department Care Team ([facility] Contact Info) Description 01/25/2025 9:30 AM EDT Office Visit [facility] [address] [place] [address] Name, MD Bobby [address] [place] [address] 02/10/2025 9:30 AM EST Telemedicine [facility] [address] [place] [address] Skye Mleton, RN 03/14/2025 10:00 AM EST Office Visit [facility] OPTOMETRY [address] [place] [address] Abbey Deng, OD [address] [place] [address] documented as of this encounter Visit Diagnoses Diagnosis Type 2 diabetes mellitus without complications (CMS/HCC) documented in this encounter Additional Health Concerns Assessment Noted Time PHQ-9 Depression Total Score: 0 03/11/20 11:47 AM EST documented as of this encounter Care Teams Camp Housekeeper Relationship Specialty Start Date End Date Name, MD Bobby [address] [place] [address] PCP - General Family Medicine 06/01/15 Inga Magaña PharmD [address] [place] [address] Pharmacist Internal Medicine 01/07/23 09/29/23 Eloina 05/13/24 documented as of this encounter
--- OUTSIDE RECORDS SUMMARY | 2024-12-04 11:31 | XMS_ITS | Encounter Summary ---
Author Organization [employer] Address [address] [place] [address] 7t [place] [address] Care Team Providers Care Preprint Analyst Name Role Phone Name, Bobby GRADY Primary Care Provider Inga Magaña PharmD Unavailable [phone] Reason for Visit * Reason Comments Med Refill Encounter Details Date Type Department Care Team (Late st Contact Info) Description 11/18/2022 Refill [facility] [address] [place], [place] [phone] Name, MD Bobby [address] [place] [address] Type 2 diabetes mellitus without complications (CMS/[facility]) Social History Tobacco Use Types [...] Department Care Team (Late Contact Info) Description 01/25/2025 9:30 AM EDT Office Visit [facility] MEDICINE [address] [place] [address] Name, MD Bobby [address] [place] [address] 02/10/2025 9:30 AM EST Telemedicine [facility] MEDICINE [address] [place] [address] Skye Melton, RN 03/14/2025 10:00 AM EST Office Visit [facility] OPTOMETRY [address] [place] [address] Abbey Deng, OD [address] [place] [address] documented as of this encounter Visit Diagnoses Diagnosis Type 2 diabetes mellitus without complications (CMS/HCC) documented in this encounter Additional Health Concerns Assessment Noted Time PHQ-9 Depression Total Score: 0 03/11/20 11:47 AM EST documented as of this encounter Care Teams Preprint Analyst Relationship Specialty Start Date End Date Name, MD Bobby [address] [place] [address] PCP - General Family Medicine 06/01/15 Inga Magaña PharmD [address] [place] [address] Pharmacist Internal Medicine 01/07/23 09/29/23 Eloina 05/13/24 documented as of this encounter
--- OUTSIDE RECORDS SUMMARY | 2024-12-04 11:31 | XMS_ITS | Encounter Summary ---
Author Organization [employer] Address [address] [place] [address] [place], [place] [address] Care Team Providers Care Refractory Mixer Name Role Phone Bobby David MD Primary Care Provider Inga Magaña PharmD Unavailable [phone] Reason for Visit * Reason Onset Date Comments Referral 04/23/2022 Encounter Details Date Type Department Care Team (Late st Contact Info) Description 04/23/2022 Telephone [facility] MEDICINE [address] [place] [address] NameBobby MD [address] [place] [address] Referral Social History Tobacco Use Types Packs/Day [...] Pt wants referral to see Gastroenterology in [facility], as pt has hx of colon cancer and has been waiting 10 years for colonoscopy. Pt stated June at [facility] has an apptset up for pt on May 13 and needs referral placed before then. Pt verbalized understanding and denied having any further questions or concerns at this time. * Telephone Encounter - Octavio Holliday - 04/23/2022 11:46 AM EST Tc from pt requesting an referral to see an gastroenterology at [facility] Please contact pt at [phone] documented in this encounter Plan of Treatment Upcoming Encounters Date Type Department Care Team (Late st Contact Info) Description 01/25/2025 9:30 AM EDT Office Visit [facility] MEDICINE [address] [place] [address] Name, MD Bobby [address] [place] [address] 02/10/2025 9:30 AM EST Telemedicine [facility] MEDICINE [address] [place] [address] Skye Melton RN 03/14/2025 10:00 AM EST Office Visit [facility] OPTOMETRY [address] [place] [address] Abbey Deng, OD [address] [place] [address] documented as of this encounter Visit Diagnoses Diagnosis History of colon polyps- Primary Family history of colon cancer Family history of malignant neoplasm of gastrointestinal tract documented in this encounter Additional Health Concerns Assessment Noted Time PHQ-9 Depression Total Score: 0 03/11/20 11:47 AM EST documented as of this encounter Care Teams Refractory Mixer Relationship Specialty Start Date End Date Name, MD Bobby [address] [place] [address] [phone] PCP - General Family Medicine 06/01/15 Inga Magaña, MiltonD [address] [place] [address] [place] [phone] Pharmacist Internal Medicine 01/07/23 09/29/23 Eloina 05/13/24 documented as of this encounter
--- OUTSIDE RECORDS SUMMARY | 2024-12-04 11:32 | XMS_ITS | Encounter Summary ---
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 BASIC METABOLIC PANEL Routine 04/29/2024 5:10 AM EST 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 documented in this encounter Results * (ABNORMAL) Basic metabolic panel (04/29/2024 5:10 AM EST) Sodium 143 133 - 145 mmol/L LAB CHEMISTRY METHOD 04/29/2024 11:20 AM EST [facility] Potassium 4.5 3.5 - 5.5 mmol/L LAB CHEMISTRY METHOD 04/29/2024 11:20 AM [facility] Chloride 106 96 - 110 mmol/L LAB CHEMISTRY METHOD 04/29/2024 11:20 AM [facility] CO2 31 21 - 32 mmol/L LAB CHEMISTRY METHOD 04/29/2024 11:20 AM [facility] Anion Gap 6 3 - 11 LAB CHEMISTRY METHOD 04/29/2024 11:20 AM [facility] Glucose 97 70 - 100 mg/dL LAB CHEMISTRY METHOD 04/29/2024 11:20 AM [facility] BUN 34(H) 5 - 25 mg/dL LAB CHEMISTRY METHOD 04/29/2024 11:20 AM [facility] Creatinine 0.80 0.50 - 1.10 mg/dL LAB CHEMISTRY METHOD 04/29/2024 11:20 AM [facility] eGFR 82 >=60 mL/min/1. 73m2 LAB CHEMISTRY METHOD 04/29/2024 11:20 AM [facility] Comment:Calculation based on the Chronic Kidney Disease Epidemiology Collaboration (CKD-EPI) equation refit without adjustment for race. BUN/Creatinine Ratio 42.5 LAB CHEMISTRY METHOD 04/29/2024 11:20 AM [facility] Calcium 7.9(L) 8.5 - 10.5 mg/dL LAB CHEMISTRY METHOD 04/29/2024 11:20 AM [facility] Blood Venous blood specimen / Unknown Venipuncture / Unknown 04/29/2024 5:10 AM EST 04/29/2024 9:30 AM EST us Yared Weaver MD LAB BLOOD ORDERABLES Final Resul t [facility] [address] [place] [address], * (ABNORMAL) Complete blood count (04/29/2024 5:10 AM EST) [facility] WBC 18.2(H) 4.8 - 10.8 K/mcL LAB HEMETOLOGY METHOD 04/29/2024 10:30 AM [facility] RBC 5.30(H) 3.80 - 4.80 M/mcL LAB HEMETOLOGY METHOD 04/29/2024 10:30 AM [facility] Hemoglobin 15.0 11.5 - 16.0 g/dL LAB HEMETOLOGY METHOD 04/29/2024 10:30 AM [facility] Hematocrit 48.0(H) 35.0 - 47.0 % LAB HEMETOLOGY METHOD 04/29/2024 10:30 AM [facility] MCV 90.2 79.0 - 98.0 FL LAB HEMETOLOGY METHOD 04/29/2024 10:30 AM [facility] MCH 28.2 27.0 - 32.0 pcg LAB HEMETOLOGY METHOD 04/29/2024 10:30 AM [facility] MCHC 31.3(L) 32.0 - 37.0 g/dL LAB HEMETOLOGY METHOD 04/29/2024 10:30 AM [facility] RDW 14.7 11.0 - 15.0 % LAB HEMETOLOGY METHOD 04/29/2024 10:30 AM [facility] Platelets 238 130 - 400 K/mcL LAB HEMETOLOGY METHOD 04/29/2024 10:30 AM [facility] MPV 11.8(H) 7.0 - 11.0 FL LAB HEMETOLOGY METHOD 04/29/2024 10:30 AM [facility] NRBC 0.0 <1.0 % LAB HEMETOLOGY METHOD 04/29/2024 10:30 AM [facility] NRBC Absolute 0.00 <0.10 K/mcL LAB HEMETOLOGY METHOD 04/29/2024 10:30 AM EST [facility] Blood Venous blood specimen / Unknown Venipuncture / Unknown 04/29/2024 5:10 AM EST 04/29/2024 9:30 AM EST us Yared Weaver MD LAB BLOOD ORDERABLES Final Resul t [facility] [address] [place] [address], documented in this encounter Visit Diagnoses Diagnosis 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
--- OUTSIDE RECORDS SUMMARY | 2024-12-04 11:32 | XMS_ITS | Encounter Summary ---
Author Organization [employer] Address [address] [place] [address] 7t [place] [address] Care Team Providers Care Sccm Administrator Name Role Phone Name, Bobby GRADY Primary Care Provider [phone] Inga Magaña PharmD Unavailable [phone] Reason for Visit * Reason Comments Med Refill Encounter Details Date Type Department Care Team (Late st Contact Info) Description 10/03/2022 Refill [facility] MEDICINE [address] [place] [address] Name, MD Bobby [address] [place] [address] Lumbar radiculopathy Social History Tobacco Use Types [...] Description 01/25/2025 9:30 AM EDT Office Visit [facility] MEDICINE [address] [place] [address] Name, MD Bobby [address] [place] [address] 02/10/2025 9:30 AM EST Telemedicine [facility] MEDICINE [address] [place] [address] Skye Melton, HODA 03/14/2025 10:00 AM EST Office Visit [facility] OPTOMETRY [address] [place], [place] [phone] Abbey Deng OD [address] [place], [place] documented as of this encounter Visit Diagnoses Diagnosis Lumbar radiculopathy Thoracic or lumbosacral neuritis or radiculitis, unspecified documented in this encounter Additional Health Concerns Assessment Noted Time PHQ-9 Depression Total Score: 0 03/11/20 22 11:47 AM EST documented as of this encounter Care Teams Sccm Administrator Relationship Specialty Start Date End Date Name, MD Bobby [address] [place] [address] PCP - General Family Medicine 06/01/15 Inga Magaña PharmD [address] [place] [phone] Pharmacist Internal Medicine 01/07/23 09/29/23 Eloina 05/13/24 documented as of this encounter
--- OUTSIDE RECORDS SUMMARY | 2024-12-04 11:32 | XMS_ITS | Encounter Summary ---
Author Organization [employer] Address [address] [place] [address] 7 [place] [address] Care Team Providers Care Process Development Engineer Name Role Phone Name, Bobby GRADY Primary Care Provider [phone] Reason for Visit * Reason Onset Date Comments Appointment Request 08/24/2024 Encounter Details Date Type Department Care Team ([facility] st Contact Info) Description 08/24/2024 Telephone [facility] [address] [place] [address] Name, MD Bobby [address] [place] [address] Appointment Request Social History Tobacco Use Types Packs/Day Years [...] AM EDT documented as of this encounter Functional Status * Over the past 2 weeks, how often have you been bothered by any of the following problems? Question Answer Date of Assessment Author Patient Health Questionnaire -2 Score 0 11/02/2024 9:53 AM EDT Mónica Berrios MA * Little interest or pleasure in doing things Answer Date of Assessment Author Not at all 11/02/2024 9:53 AM EDT Cem Berrios MA * Feeling down, depressed, or hopeless Answer Date of Assessment Author Not at all 11/02/2024 9:53 AM EDT Cem Berrios MA * Trouble falling or staying asleep, or sleeping too much Answer Date of Assessment Author More than half the days 11/02/2024 9:53 AM EDT Cem Javed MA * Feeling tired or having little energy Answer Date of Assessment Author More than half the days 11/02/2024 9:53 AM EDT Cem Javed MA * Poor appetite or overeating Answer Date of Assessment Author Several days 11/02/2024 9:53 AM EDT Cem Berrios MA * Feeling bad about yourself - or that you are a failure or have let yourself or your family down Answer Date of Assessment Author Not at all 11/02/2024 9:53 AM EDGART Cem Berrios MA * Trouble concentrating on things, such as reading the newspaper or watching television Answer Date of Assessment Author Not at all 11/02/2024 9:53 AM EDGART Cem Berrios MA * Moving or speaking so slowly that other people could have noticed? Or the opposite - being so fidgety or restless that you have been moving around a lot more than usual. Answer Date of Assessment Author Not at all 11/02/2024 9:53 AM Cem Durant MA * Thoughts that you would be better off or hurting yourself in some way Answer Date of Assessment Author Not at all 11/02/2024 9:53 AM Cem Durant MA * Patient Health Questionnaire-9 Score Answer Date of Assessment Author 5 11/02/2024 9:53 AM Cem Durant [place] * How difficult have these problems made it for you to do your work, take care of things at home, or get along with other people? Answer Date of Assessment Author Not difficult at all 11/02/2024 9:53 AM EDT Cem Elena MA documented as of this encounter Miscellaneous Notes * Telephone Encounter - Jami Emery - 08/24/2024 3:12 PM EDT TC from pt requesting to reschedule appt from 09/01/24 Official Greeter unable to book appt documented in this encounter Plan of Treatment Upcoming Encounters Date Type Department Care Team (Late st Contact Info) Description 01/25/2025 9:30 AM EDT Office Visit [facility] [address] [place] [id number] Name, MD Bobby [address] [place] [address] 02/10/2025 9:30 AM EST Telemedicine [facility] [address] [place] [address] Skye Melton, RN 03/14/2025 10:00 AM EST Office Visit [facility] OPTOM[facility]RY [address] [place] [address] Abbey Deng, OD [address] [place] [address] documented as of this encounter Goals Goal Patient Goal Type Associated Problems Recent Progress Patient-Stated? Author Smoking cessation General No Inga Magaña, PharmD documented as of this encounter Visit Diagnoses Not on filedocumented in this encounter Additional Health Concerns Assessment Noted Time PHQ-9 Depression Total Score: 0 06/19/19 24 10:09 AM EDT documented as of this encounter Care Teams Process Development Engineer Relationship Specialty Start Date End Date Name, MD Bobby [address] [place] [address] PCP - General Family Medicine 06/01/15 Eloina 05/13/24 documented as of this encounter
--- OUTSIDE RECORDS SUMMARY | 2024-12-04 11:32 | XMS_ITS | Encounter Summary ---
Author Organization [employer] Address [address] [place] [address] [address] [place] [address] Care Team Providers Care Storage Battery Tester Name Role Phone Name, Bobby GRADY Primary Care Provider [phone] Inga Magaña PharmD Unavailable Reason for Visit * Reason Comments Med Refill Encounter Details Date Type Department Care Team (Late st Contact Info) Description 05/15/2022 Refill [facility] [address] [place] [address] Name, MD Bobby [address] [place] [address] Seasonal allergic rhinitis, unspecified trigger (Primary Dx) [...] Description 01/25/2025 9:30 AM EDT Office Visit [facility] [address] [place] [phone] Name, MD Bobby [address] [place] [address] 02/10/2025 9:30 AM EST Telemedicine [facility] [address] [place] [address] Skye Melton, RN 03/14/2025 10:00 AM EST Office Visit [facility] OPTOMETRY [address] [place] [address] Abbey Deng, OD [address] [place] [address] documented as of this encounter Visit Diagnoses Diagnosis Seasonal allergic rhinitis, unspecified trigger- Primary documented in this encounter Additional Health Concerns Assessment Noted Time PHQ-9 Depression Total Score: 0 03/11/20 11:47 AM EST documented as of this encounter Care Teams Storage Battery Tester Relationship Specialty Start Date End Date Name, MD Bobby [address] [place] [address] PCP - General Family Medicine 06/01/15 Inga Magaña PharmD [address] [place] [address] Pharmacist Internal Medicine 01/07/23 09/29/23 Eloina 05/13/24 documented as of this encounter
--- OUTSIDE RECORDS SUMMARY | 2024-12-04 11:32 | XMS_ITS | Encounter Summary ---
Author Organization [employer] Address [address] [place] [address] [address] [place] [address] Care Team Providers Care Recycling Crew Supervisor Name Role Phone Name, Bobby GRADY Primary Care Provider [phone] Reason for Visit * Reason Onset Date Comments fyi 08/23/2024 Encounter Details Date Type Department Care Team ([facility] st Contact Info) Description 08/23/2024 Telephone [facility] [address] [place] [address] Name, MD Bobby [address] [place] [address] fyi Social History Tobacco Use Types Packs/Day Years [...] 9:53 AM EDGART Cem Berrios MA * Thoughts that you would be better off or hurting yourself in some way Answer Date of Assessment Author Not at all 11/02/2024 9:53 AM Cem Durant [place] * Patient Health Questionnaire-9 Score Answer Date of Assessment Author 5 11/02/2024 9:53 AM EDGART Cem Berrios MA * How difficult have these problems made it for you to do your work, take care of things at home, or get along with other people? Answer Date of Assessment Author Not difficult at all 11/02/2024 9:53 AM EDT Cem Elena MA documented as of this encounter Miscellaneous Notes * Telephone Encounter - Yennifer Aguilar - 08/23/2024 1:59 PM EDT Tc from [facility] at [facility] roberto pt has a Bronchoscopy on 09/01/24 at 10:30am. documented in this encounter Plan of Treatment Upcoming Encounters Date Type Department Care Team (Late st Contact Info) Description 01/25/2025 9:30 AM EDT Office Visit [facility] [address] [place] [address] Name, MD Bobby [address] [place] [address] 02/10/2025 9:30 AM EST Telemedicine [facility] [address] [place] [address] Skye Melton, RN 03/14/2025 10:00 AM EST Office Visit [facility] OPTOMETRY [address] [place], [place] [phone] Abbey Deng, OD [address] [place] [address] documented as of this encounter Goals Goal Patient Goal Type Associated Problems Recent Progress Patient-Stated? Author Smoking cessation General No Inga Magaña, PharmD documented as of this encounter Visit Diagnoses Not on filedocumented in this encounter Additional Health Concerns Assessment Noted Time PHQ-9 Depression Total Score: 0 06/19/19 24 10:09 AM EDT documented as of this encounter Care Teams Recycling Crew Supervisor Relationship Specialty Start Date End Date Name, MD Bobby [address] [place] [phone] PCP - General Family Medicine 06/01/15 Eloina 05/13/24 documented as of this encounter
[2024-12-04 11:55] LABS: MANUAL DIFF FLAG NO
--- NOTE | 2024-12-04 11:55 | ED.CHESTPAIN ---
HPI - Chest Pain General Chief Complaint: Chest Pain Stated Complaint: CP, vomiting waek Time Seen by Provider: 12/04/24 11:51 Related Data Home Medications ?Medication ?Instructions ?Recorded ?Confirmed aspirin 81 mg tablet,delayed 81 mg PO BEDTIME 12/24/19 08/30/24 release atorvastatin 80 mg tablet 80 mg PO BEDTIME 12/24/19 08/30/24 carvedilol 6.25 mg tablet 6.25 mg PO BID 12/24/19 08/30/24 cetirizine 10 mg tablet 10 mg PO DAILY PRN allergies 12/24/19 08/30/24 montelukast 10 mg tablet 10 mg PO BEDTIME 12/24/19 08/30/24 omeprazole 20 mg capsule,delayed 20 mg PO BID@0630,1630 12/24/19 08/30/24 release docusate sodium 100 mg capsule 1 cap PO BEDTIME Constipation 01/24/21 08/30/24 blood sugar diagnostic (FreeStyle #10 ea 10/07/21 05/31/24 Lite Strips) lancets 33 gauge (TRUEplus Lancets) #100 ea 10/07/21 05/31/24 naloxone 4 mg/actuation nasal spray 1 spray intranasal ONCE PRN Opioid 10/07/21 08/30/24 Overdose oxycodone-acetaminophen 7.5 mg-325 1 tab PO Q6H PRN severe pain 06/23/22 08/30/24 mg tablet sennosides 8.6 mg tablet (senna) 8.6 mg PO BID Constipation 01/30/23 08/30/24 nebulizers 06/03/23 05/31/24 empagliflozin 10 mg tablet 10 mg PO DAILY 02/10/24 08/30/24 (Jardiance) insulin glargine 100 unit/mL (3 35 unit subcut BID 04/07/24 08/30/24 mL) subcutaneous pen (Lantus Solostar U-100 Insulin) levothyroxine 112 mcg tablet 112 mcg PO DAILY@59904/07/24 08/30/24 pregabalin 100 mg capsule 100 mg PO TID 04/07/24 08/30/24 dulaglutide 1.5 mg/0.5 mL 1.5 mg subcut WE@89904/21/24 08/30/24 subcutaneous pen injector (Trulicity) dupilumab 300 mg/2 mL subcutaneous 300 mg subcut Q2W 04/21/24 08/30/24 pen injector (Dupixent) fluticasone propionate 50 1 spray intranasal DAILY PRN 04/21/24 08/30/24 mcg/actuation nasal Congestion spray,suspension insulin aspart U-100 100 unit/mL 6 - 10 sliding scale dose subcut 04/21/24 08/30/24 (3 mL) subcutaneous pen (Novolog TIDAC FlexPen U-100 Insulin aspart) ipratropium 20 mcg-albuterol 100 2 puff inhalation BID 04/21/24 08/30/24 mcg/actuation mist for inhalation (Combivent Respimat) pyridoxine (vitamin B6) 50 mg 50 mg PO DAILY 08/11/24 08/30/24 tablet Previous Rx's ?Medication ?Instructions ?Recorded Ventolin HFA 90 mcg/actuation 2 puff inhalation Q4-6H PRN for 07/27/23 aerosol inhaler (albuterol sulfate) wheezing #18 grams arm brace (HANK Elbow Brace) #1 ea 08/27/23 ipratropium 0.5 mg-albuterol 3 mg 3 ml inhalation RQ4H WHILE AWAKE 04/26/24 (2.5 mg base)/3 mL nebulization PRN Shortness Of Breath/Wheezing soln #270 mL lidocaine 5 % topical patch 1 patch topical DAILY #30 ea 06/12/24 prednisone 5 mg tablet 5 mg PO DAILY #30 tabs 08/17/24 amoxicillin 875 mg-potassium 1 tab PO BID 10 days #20 tabs 09/02/24 clavulanate 125 mg tablet prednisone 10 mg tablet See Rx Instructions PO DAILY 10 09/15/24 days #15 tabs fluticasone fur. 100 mcg-umeclid 1 ea inhalation DAILY #60 ea 10/12/24 62.5 mcg-vilant 25 mcg inhalat.powder (Trelegy Ellipta) allopurinol 100 mg tablet 100 mg PO DAILY 90 days #90 tabs 10/17/24 roflumilast 500 mcg tablet 500 mcg PO DAILY #30 tabs 10/31/24 Allergies Allergy/AdvReac Type Severity Reaction Status Date / Time HANK Inhibitors (HANK Allergy Severe ANGIO Verified 12/04/24 11:11 INHIBITORS) EDEMA enalapril Allergy Severe Anaphylaxis Verified 12/04/24 11:11 erythromycin base Allergy Severe HIVES ALL Verified 12/04/24 11:11 (ERYTHROMYCIN BASE) OVER metformin Allergy Unknown Verified 12/04/24 11:11 hydromorphone (From DILAUDID) AdvReac Severe TINGLING, Verified 12/04/24 11:11 PT DOES NOT LIKE THE FEELING MED GIVES HER PMFSH Past Medical History Medical History (Updated 09/15/24 @ 21:40 by Fidel White MD) Chest pain History of RSV infection (03/2024) Hx of influenza (03/2024) Influenza A Asthma-COPD overlap syndrome Allergies History of back pain History of neuropathy Smokes tobacco daily Opioid dependence Nephrolithiasis Hyperlipidemia HTN (hypertension) Cardiomyopathy Myocardial infarction CAD (coronary artery disease) Cough Hypothyroidism, postsurgical Tubular adenoma Diabetes MCKAY (obstructive sleep apnea) Irritable bowel syndrome Hyperthyroidism Polycythemia Smoker Hypoxia COPD exacerbation Lesion of bronchus Tracheal anomaly Multinodular goiter Vitamin D deficiency Atelectasis Subclinical hyperthyroidism Goiter Pneumonia Pulmonary nodules COPD (chronic obstructive pulmonary disease) Surgical History History of coronary artery stent placement Hx of thyroidectomy History of thyroid surgery History of esophagogastroduodenoscopy (EGD) Hx of colonoscopy History of back surgery History of ureterostomy S/P lumpectomy, right breast History of cholecystectomy History of tonsillectomy Family History Family History Father No problems noted. Mother No problems noted. Paternal Aunt Diabetes Social History Social History Household Members: Significant Other Housing: House Are you a primary career based intervention coordinator to a significant other at home: No Do you presently have visiting nurse or other home services: No Alcohol intake: never Comment: declines alarm, steadt to walk short distance to commode Patient Tobacco Use Status: Current everyday Tobacco user Tobacco use type: Cigarette Cigarette Packs Per Day: 0.5 Cigarettes Per Day: 10 e-Cigarette/Vaping Use: Never Used Second Hand Smoke Exposure: Yes Substance Use Type: Other Advance Directives: Yes Advance Directives on File: Yes Advance Directives Date on File: 01/24/21 Do you have a plan to hurt others: No Plan service: No Current occupational status: disabled Physical Exam Vital Signs: Vital Signs: Last Vital Signs Temp 97.7 F 12/04/24 11:10 Pulse 84 12/04/24 11:10 Resp 16 12/04/24 11:10 BP 148/70 H 12/04/24 11:10 Pulse Ox 94 12/04/24 11:10 O2 Del Method Room Air 12/04/24 11:10 BMI result Body Mass Index 24.1 Discharge Plan Discharge Prescriptions: No Action albuterol sulfate [Ventolin HFA] 90 mcg/actuation HFA aerosol inhaler 2 puff inhalation Q4-6H PRN (Reason: for wheezing) Qty: 18 11RF prednisone 5 mg tablet 5 mg PO DAILY Qty: 30 3RF amoxicillin-pot clavulanate 875-125 mg tablet 1 tab PO BID 10 Days Qty: 20 0RF Trelegy Ellipta 100-62.5-25 mcg blister with device 1 ea INHALATION DAILY Qty: 60 12RF allopurinol 100 mg tablet 100 mg PO DAILY 90 Days Qty: 90 1RF roflumilast 500 mcg tablet 500 mcg PO DAILY Qty: 30 11RF docusate sodium 100 mg capsule 1 cap PO BEDTIME insulin aspart U-100 [Novolog FlexPen U-100 Insulin] 100 unit/mL (3 mL) insulin pen 6 - 10 sliding scale dose subcut TIDAC Protocol: Insulin Correction Scale Less than or equal to 110 ---- Give (units): 0 111 to 150 Give (units): 0 151 to 200 Give (units): 2 201 to 250 Give (units): 4 251 to 300 Give (units): 6 301 to 350 Give (units): 8 Greater than 350 Give (units): 10 Call MD if Blood Glucose > : 350 Combivent Respimat 20-100 mcg/actuation mist 2 puff INHALATION BID Trulicity 1.5 mg/0.5 mL pen injector 1.5 mg subcut WE@0900 Dupixent Pen 300 mg/2 mL pen injector 300 mg SUBCUT Q2W fluticasone propionate 50 mcg/actuation [place],Suspension 1 spray INTRANASAL DAILY PRN (Reason: Congestion) Rx Instructions: administer into each nostril ipratropium-albuterol 0.5 mg-3 mg(2.5 mg base)/3 mL Solution For Nebulization 3 ml inhalation RQ4H WHILE AWAKE PRN (Reason: Shortness Of Breath/Wheezing) Qty: 270 0RF lidocaine 5 % adhesive patch,medicated 1 patch topical DAILY Qty: 30 0RF Rx Instructions: leave on most painful area for up to 12 hrs sennosides [senna] 8.6 mg Tablet 8.6 mg PO BID insulin glargine [Lantus Solostar U-100 Insulin] 100 unit/mL (3 mL) insulin pen 35 unit SUBCUT BID Rx Instructions: PER PATIENT, MAY REQUIRE HIGHER DOSES WHEN ON STEROIDS levothyroxine 112 mcg tablet 112 mcg PO DAILY@0600 pregabalin 100 mg capsule 100 mg PO TID omeprazole 20 mg capsule,delayed release(DR/EC) 20 mg PO BID@0630,1630 aspirin 81 mg tablet,delayed release (DR/EC) 81 mg PO BEDTIME carvedilol 6.25 mg tablet 6.25 mg PO BID atorvastatin 80 mg tablet 80 mg PO BEDTIME Protocol: Hold for SBP< HOLD for SBP < : 90 montelukast 10 mg tablet 10 mg PO BEDTIME cetirizine 10 mg tablet 10 mg PO DAILY PRN (Reason: allergies) (DME) lancets [TRUEplus Lancets] 33 gauge misc See Rx Instructions .ROUTE TID Qty: 100 Rx Instructions: As directed (DME) FreeStyle Lite Strips Strip See Rx Instructions .ROUTE TID Qty: 10 Rx Instructions: As directed naloxone 4 mg/actuation spray,non-aerosol 1 spray intranasal ONCE PRN (Reason: Opioid Overdose) oxycodone-acetaminophen 7.5-325 mg tablet 1 tab PO Q6H PRN (Reason: severe pain) prednisone 10 mg tablet See Rx Instructions PO DAILY 10 Days Qty: 15 0RF Rx Instructions: PO daily; Take 2 tabs daily x 5 days, then 1 tab daily x 5 days (DME) nebulizers Misc See Rx Instructions .Route Rx Instructions: As directed (DME) HANK Elbow Brace Misc See Rx Instructions .Route Qty: 1 0RF Rx Instructions: As directed Jardiance 10 mg tablet 10 mg PO DAILY pyridoxine (vitamin B6) 50 mg tablet 50 mg PO DAILY Print Language: Cook Islander
[2024-12-04 12:08] LABS: Hematocrit 47.6 % (37.0-47.0); Hemoglobin 15.9 g/dl (12.0-16.0); Imm Gran Abs Auto 0.05 X10*3/uL (0.00-0.03); Imm Gran Pct Auto 0.4 % (0.0-0.4); Lymphocytes Absolute Auto 4.2 X10*3/uL (1.2-4.9); Mean Corpuscular HGB Conc 33.4 g/dl (31.0-35.0); Mean Corpuscular Hemoglobin 28.1 pg (27.0-33.0); Mean Corpuscular Volume 84.1 fL (80.0-98.0); NRBC Abs Auto 0.000 X10*3/uL (0.0-0.012); NRBC Pct Auto 0.0 /100WBC (0.0-0.2); Platelet Count 219 X10*3/uL (160-400); Red Blood Count 5.66 X10*6/uL (4.20-5.50); White Blood Count 12.6 X10*3/uL (4.8-10.8)
[2024-12-04 12:12] LABS: INTERNATIONAL NORM RATIO 0.8 (0.9-1.1); Prothrombin Time 9.7 SEC (10.9-12.4)
[2024-12-04 12:15] LABS: Partial Thromboplastin Time 27.7 SEC (26.7-34.1)
[2024-12-04 12:24] VITALS: BP 134/71; PULSE 72; RESP 15; O2SAT 96
[2024-12-04 12:25] VITALS: PULSE 71
--- NOTE | 2024-12-04 12:28 | PC.NURSE ---
63 F presents to ED with abdominal pain that radiates to chest after n/v this morning. A+Ox4, a little anxious, cooperative. Pt c/o some SOB, hx COPD. Respiratory here to give her a breathing treatment. Pt ambulates indepdently, takes chronic meds for back: perk 7.5mg, baclofen 10, pregablin 100.
[2024-12-04 12:30] LABS: Anion Gap 15 (12-20); Resp Syncy Virus RNA Qual PCR NEGATIVE (Negative); SARS COV2 PCR INHOUSE NEGATIVE (Negative)
[2024-12-04 12:31] LABS: Alanine Aminotransferase 21 U/L (0-31); Albumin Level 4.2 g/dL (3.5-5.0); Alkaline Phosphatase 78 U/L (39-117); Aspartate Amino Transferase 21 U/L (5-31); Blood Urea Nitrogen 14 mg/dL (9-16); Calcium 8.9 mg/dL (8.4-10.2); Carbon Dioxide 22 mmol/L (22-29); Chloride 113 mmol/L (96-108); Creatinine Clr Calc Pharmacy 65.5; Estimated Glomerular Filt Rate > 60; Magnesium 2.0 mg/dL (1.6-2.6); Potassium 3.5 mmol/L (3.3-5.1); Sodium 146 mmol/L (135-145); Total Protein 7.0 g/dL (6.5-8.0)
[2024-12-04 12:34] LABS: B Type Natriuretic Peptide 51 pg/mL (<100)
[2024-12-04 12:35] LABS: Troponin-I High Sensitivity 3.9 ng/L (<3.5-17.0)
[2024-12-04 12:46] VITALS: PULSE 76; RESP 18; O2SAT 97
[2024-12-04] MEDS: Albuterol Sulfate 2.5 MG, Albuterol/Iprat 2.5/0.5MG 3 ML 3 ML INHALE (12:46)
[2024-12-04] MEDS: oxyCODONE HCl Immed Release 5 MG TABLET 7.5 MG PO (13:11)
[2024-12-04] MEDS: Lidocaine HCl Viscous 2 % 15 ML SOLUTION MUCOUS MEM (13:42)
[2024-12-04] MEDS: Magnesium Hydrox/Alum Hydrox 30 ML ORAL.SUSP PO (13:42)
[2024-12-04 14:38] VITALS: BP 139/71; PULSE 72; RESP 16; TEMP -17.7; TEMP 0; O2SAT 96
== END 2024-12-04 15:04 | disposition home or self-care (01) ==
PROVIDERS: Physician Assistant; Emergency Provider Student in an Organized Health Care Education/Training Program; PCP Internal Medicine Geriatric Medicine
DX: K29.70 Gastritis, unspecified, without bleeding (principal); R07.9 Chest pain, unspecified; Z03.818 Encounter for observation for suspected exposure to other biological agents ruled out; J44.9 Chronic obstructive pulmonary disease, unspecified; G47.33 Obstructive sleep apnea (adult) (pediatric); R10.13 Epigastric pain; R11.2 Nausea with vomiting, unspecified
CPT/HCPCS: 36415; 71045; 80053; 83735; 83880; 84484; 85025; 85610; 85730; 87637; 93005; 94640; 96361; 96374; 96375; 99284; 99285; J1308; J2405

== ENCOUNTER → 2024-12-04 11:11 | Outpatient (BNV) | payer OTHER, SELFPAY | PROVIDERS: Emergency Provider Student in an Organized Health Care Education/Training Program; PCP Internal Medicine Geriatric Medicine; Visit Provider Radiology Diagnostic Radiology | DX: R07.9 Chest pain, unspecified (principal) | CPT/HCPCS: 71045 ==

== ENCOUNTER → 2024-12-04 11:23 | Outpatient (BNV) | payer OTHER, SELFPAY | PROVIDERS: Emergency Provider Student in an Organized Health Care Education/Training Program; PCP Internal Medicine Geriatric Medicine; Visit Provider Internal Medicine Cardiovascular Disease | DX: I45.10 Unspecified right bundle-branch block (principal) | CPT/HCPCS: 93010 ==

== ENCOUNTER 2024-12-09 10:19 | Outpatient (AMB) | payer OTHER, SELFPAY ==
--- NOTE | 2024-12-09 10:26 | MHC.OFFVIS ---
Vital Signs 12/09/24 10:29 Height 5 ft 5 in Weight 163 lb 2.273 oz BMI 27.1 BP 124/62 Blood Pressure Location Lt brachial Position Sitting Pulse 85 Pulse Source Pulse Oximeter Pulse Oximetry (%) 96 Oxygen Delivery Method Room Air Intake Visit Reasons: copd Radiology Technician Required: No Accompanied by: Self / Same As Patient Allergies HANK Inhibitors (HANK INHIBITORS) Allergy (Severe, Verified 12/09/24 10:30) ANGIO EDEMA enalapril Allergy (Severe, Verified 12/09/24 10:30) Anaphylaxis erythromycin base (ERYTHROMYCIN BASE) Allergy (Severe, Verified 12/09/24 10:30) HIVES ALL OVER metformin Allergy (Verified 12/09/24 10:30) Unknown hydromorphone (From DILAUDID) Adverse Reaction (Severe, Verified 12/09/24 10:30) TINGLING, PT DOES NOT LIKE THE FEELING MED GIVES HER HPI Comments Details: The patient is a 63-year-old woman with a known history of COPD and former smoker. She has had multiple hospitalizations for her COPD exacerbations. Also requiring multiple prednisone tapers in currently on chronic prednisone 5 mg daily. She was evaluated in the hospital back in April and in July. She did have chest x-rays demonstrating bilateral hazy opacities. On repeat x-rays from October 2019 it appeared that she still has a persistent opacity in the right infrahilar area. Therefore, CT scan of the chest is warranted. The patient is no longer smoking that she quit 2 years ago. However, she still exposed to secondhand smoke. She continues use her nebulizer 1 or twice a day. And she continues to use her respiratory regimen with partial resolution of her symptoms. She does complaint of shortness of breath [id number] severity with activity. And she also complains of cough usually productive in nature with either wider yellowish sputum. In the office we did have her go for 6 minutes walk test. She was able to ambulate 700 ft. Her Hillary score was 7/10 suggesting that she was in the dyspneic. Her pulse ox was indeed reassuring 94-95% throughout the ambulation. 01/24/2022 the patient is here for a pulmonary follow-up visit. Since we last spoke she has had a tough few weeks. Beginning December she started developing worsening respiratory symptoms with cough. Ultimately now her cough has become more productive greenish in color. During the last time I saw her back in the springtime she did have a COPD exacerbation requiring antibiotics and prednisone. Now with her symptoms getting worse she was able to take 20 mg of prednisone that she had and she did feel little better. She did have a CT scan of the chest sometime in the beginning of December demonstrating areas of ground-glass opacities. It is likely that she possibly had a lower respiratory viral infection and ultimately resulted in a postviral bacterial infection. She continues use her nebulizers. On examination she does have some wheezing and rhonchi. 07/25/2022 the patient is here for pulmonary follow-up visit. Since we last spoke patient ended up going to the [facility] with COPD exacerbation. She had acute respiratory failure home. She was treated for about 3-4 days since she was released. The patient had a chest x-ray demonstrating atelectasis. She was able to wean off the oxygen when she went home. Unfortunately she continues to smoke cigarettes. She also has issues with hyperparathyroidism and she has lost significant amount of weight. She recently saw her primary care doctor was placed on prednisone for COPD exacerbation. She is bringing up some mucus although is clear. The patient has allergies to antibiotics including macrolides. We did go for brief walking oximetry and she did very well maintaining a pulse ox noted. 11/24/2022 the patient is here for pulmonary follow-up visit. Overall the patient has been losing weight. She was diagnosed with apparently Lori disease, hyperthyroidism. She needs to undergo surgery. The patient is here for preoperative evaluation. She continues on the Trelegy inhaler which has been affecting beneficial. She has not required any additional prednisone. She does take 5 mg daily. She recently had a fall and she factor multiple bones but she healed okay which is reassuring. She continues to smoke unfortunately. She is trying to cut down before surgery. She did do well with Chantix in the past she quit smoking for 3 years on it. Then she tried again and cause severe nausea and vomiting and she had to stop it. I do believe that she should restarted or consider a 3rd course possibly after surgery. We did have her undergo pulmonary function studies spirometry in the office. It appears that she does have a severe obstruction consistent with severe COPD. Therefore explained to the patient that she is high risk for perioperative pulmonary complications which include COPD exacerbations, atelectasis, hypoxia, pneumonia and prolonged mechanical ventilation. At least a pulmonary standpoint the patient is medically optimize. The patient is able to proceed with anesthesia and surgery understanding that she is high risk for these potential complications. 09/17/2023 the patient is here for a pulmonary follow-up visit overall the patient doing fairly well. She did have to call the dispatch because she was having difficulty breathing. She was given a short course of prednisone and now back to her based on prednisone 5 mg. She states that after her thyroid surgery back in the fall of 2022 her breathing has not been complete normal. She has had some just increased work of breathing but at this point is gotten better. Will continue to monitor her progress although right now her breathing is good I do not appreciate any stridor and she does not have any wheezing on examination. Therefore her respiratory therapy is stable. She is having issues with kidney stones. The patient is scheduled to undergo lithotripsy at this point. She will need to be under anesthesia. She does have increased risk for perioperative pulmonary complications due to her COPD and her chronic steroids but at this point she is medically optimize and is able to proceeding consent for anesthesia and surgery. We did review her chest x-ray that she had back in March 2023 demonstrating no acute disease which is reassuring. She is scheduled for CT scan of the chest because will monitoring closely pulmonary nodules in her lung cancer screening. Will plan to follow-up in 6 months with pulmonary function studies to assess her flow volume loop. 10/28/2023 the patient is here for a pulmonary follow-up visit. Recently she had to go on a prednisone taper for an asthma flare-up. She is down to her baseline prednisone. Now she is concerned about her sugars being elevated and therefore she may have to hold her orthopedic surgery. She will be seeing her hand surgeon soon. She will have additional blood work. As long she is able to taper off the prednisone and she is on her maintenance therapy and she is doing well she can proceed with anesthesia and surgery. When she completes couple more days of antibiotics. She will let me know how she is doing and if she feels like the symptoms are rebounding then she can be prescribed additional medications then. She needs to quit smoking. I did send the nicotine patch to the pharmacy. We did look at her CT scan of the chest which demonstrates bronchitis and some degree of atelectasis and some minimal emphysema but her lung parenchyma still fairly viable and she quit smoking she can least have normal lung capacity. 02/05/2024 the patient is here for a pulmonary follow-up visit. Overall she is doing a little bit worse. She feels like the allergies are bothering her causing to have worsening cough wheezing chest tightness. She continues to be on maximize respiratory therapy. Unfortunately she continues to smoke cigarettes as well that is hindering her effect of the inhalers. Although she did call the ER with worsening respiratory symptoms back in early December. At that time the patient was found to have a significant degree of eosinophilia of 600. 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 In the meantime she knows she needs to quit smoking in order to allow the therapy to work. The patient has not been taking part of the lung cancer screening program. She was doing it elsewhere. She has not had a CT scan in some time. I will put a referral in for that. She will continue with the Trelegy inhaler. She does have significant wheezing on examination so therefore I will send her another course of prednisone will be wait for the Dupixent. The patient will also undergo blood work she is concerned for mold allergies. Will go ahead and do additional allergy testing at this time. 05/31/2024 this is a hospital follow-up visit. The patient was admitted to the hospital with RSV and COPD exacerbation and pneumonia. She was treated after prolonged hospital course and then went to rehab. She was oxygen dependent. Now she is participating in the pulmonary rehabilitation program here. She was able to wean off the oxygen which is reassuring. She continues with respiratory therapy with good effect. We did look at her x-rays demonstrating evidence of bronchitis. But now she is doing better. No significant wheezing on exam. She needs to continue with pulmonary rehab. She did complete the program but now will have to continue exercising on her own. In the meantime she did start the Dupixent. The Dupixent therapy has been affecting beneficial. Currently she is still on 5 mg of prednisone which will continue due to the chronicity of the prednisone use. But if she continues to do well will start thinking about decreasing slowly. 09/15/2024 the patient is here for post bronchoscopy evaluation. After the bronchoscopy she started developing some right-sided chest discomfort. Seems to be persistent primarily underneath her breast on the right side. Denies any pleuritic component to it. Does worsen when she uses her arm. The discomfort radiates down to the abdomen although she does not have any abdominal discomfort or complaints. She is still coughing some phlegm but overall better. Her cultures all negative, just with respiratory jeanna. Pathology all negative cytology all negative as well. Although her airways were significantly inflamed with significant mucoid secretions. Please refer to the bronchoscopy report. The appendix indeed reproducible the knee through breast. We did look at her x-ray. Personally by me. I do not see any abnormalities as far as acute issues. She still has the opacity of the right middle lobe areas suggesting the atelectasis. She did have a lot of mucus during the bronch but again cultures were all negative except for normal jeanna. She did complete a course of Augmentin though after the procedure since she was having some cough and some discomfort. Will go ahead and start her on a little bit higher dose of prednisone to decrease inflammation. Also she may benefit from a muscle relaxant as it is believe is musculoskeletal. However, she is going to try Lidoderm patch 1st. And she already has Percocet as needed for pain. Will plan to continue the current therapy and will follow-up with a CT scan in 3 months. 12/09/2024 the patient is here for pulmonary follow-up visit. The patient is feeling a little bit better overall. She has been trying to cut down the smoking although still having hard time with that. Still having some chest congestion although better. She did complain order antibiotics. The patient did have a repeat CT scan of the chest and she continues to have the persistent atelectasis in the lingula. She did have the bronchoscopy and she did have some mucus burden with some mucus plugging. However, does not appear that the bronchoscopy helped an opening up the airway. 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 In the meantime she has been on Dupixent for her frequent COPD exacerbations. Although it does not appear to be as effective. Will go ahead and switch over to Nucala specially since she has an elevated eosinophil count she should react better with the hopes of decreasing the inflammation of the airways and hopefully that right middle lobe will start inflating again. We did talk about the importance of CPT with the flutter valve and also deep breathing exercises to help open up those airways further. She will continue to work on the smoking. The patient will follow-up in 3-4 months to see her progress. [facility] Medical History (Updated 12/05/24 @ 00:00 by Belkis Jara) Chest pain History of RSV infection (03/2024) Hx of influenza (03/2024) Influenza A Asthma-COPD overlap syndrome Allergies History of back pain History of neuropathy Smokes tobacco daily Opioid dependence Nephrolithiasis Hyperlipidemia HTN (hypertension) Cardiomyopathy Myocardial infarction CAD (coronary artery disease) Cough Hypothyroidism, postsurgical Tubular adenoma Diabetes MCKAY (obstructive sleep apnea) Irritable bowel syndrome Hyperthyroidism Polycythemia Smoker Hypoxia COPD exacerbation Lesion of bronchus Tracheal anomaly Multinodular goiter Vitamin D deficiency Atelectasis Subclinical hyperthyroidism Goiter Pneumonia Pulmonary nodules COPD (chronic obstructive pulmonary disease) Surgical History History of coronary artery stent placement Hx of thyroidectomy History of thyroid surgery History of esophagogastroduodenoscopy (EGD) Hx of colonoscopy History of back surgery History of ureterostomy S/P lumpectomy, right breast History of cholecystectomy History of tonsillectomy Family History Father No problems noted. Mother No problems noted. Paternal Aunt Diabetes Social History Household Members: Significant Other Housing: House Are you a primary health care facility administrator to a significant other at home: No Do you presently have visiting nurse or other home services: No Alcohol intake: current Alcohol intake frequency: holidays/special occasions only Comment: declines alarm, steadt to walk short distance to commode Patient Tobacco Use Status: Current everyday Tobacco user Tobacco use type: Cigarette Cigarette Packs Per Day: 0.5 Cigarettes Per Day: 10 e-Cigarette/Vaping Use: Never Used Second Hand Smoke Exposure: Yes Substance Use Type: Other Advance Directives Date on File: 01/24/21 service: No Current occupational status: disabled Review of Systems Const Reports weight loss ENT Denies change in voice, Denies lip swelling, Denies mouth pain, Reports nasal congestion, Reports nasal discharge and Denies tongue swelling Card Reports chest pain and Denies dyspnea on exertion Resp Denies chest congestion, Reports cough, Denies hemoptysis, Denies pain on inspiration, Denies pain with cough and Denies dyspnea on exertion GI Denies abdominal pain Musc Denies no additional complaints Neuro Denies Neuro-related abnormal movements Psych Denies no additional complaints Alberto/Lymph Denies easy bleeding and Denies lymphadenopathy Aller/Immun Denies lip swelling and Denies tongue swelling Physical Exam Vital Signs: Last Vital Signs Pulse 85 12/09/24 10:29 BP 124/62 12/09/24 10:29 Pulse Ox 96 12/09/24 10:29 Oxygen Delivery Method Room Air 12/09/24 10:29 BMI result Body Mass Index 27.1 Last Vital Signs Temp 97.6 F 04/24/24 15:52 Pulse 86 04/24/24 15:44 Resp 16 04/24/24 15:52 BP 164/81 H 04/24/24 15:52 Pulse Ox 95 04/24/24 15:52 O2 Del Method Nasal Cannula 04/24/24 15:52 O2 Flow Rate 2 04/24/24 15:52 BMI result Body Mass Index 28.2 Const Other: Awake alert no acute distress General: alert and awake Nutritional Appearance: overweight Orientation/consciousness: patient oriented x3 Neck Neck: Yes normal visual inspection Resp Other: b/l exp wheeze; poor air entry Effort & Inspection: able to speak in complete sentences and prolonged expiratory phase Auscultation: diminished lung sounds Cardio Other: No S4; positive S1-S2; no S3 murmurs rubs or gallops Heart sounds: S1 normal heart sound present and S2 normal heart sound present GI Palpation (GI): Soft to palpation Neuro Other: grossly nonfocal General: patient oriented x3 Extrem Other: No edema bilaterally Assessment & Plan Assessment & Plan (1) Atelectasis: Code(s): J98.11 - Atelectasis Category: Medical (2) COPD (chronic obstructive pulmonary disease): Code(s): J44.9 - Chronic obstructive pulmonary disease, unspecified Category: Medical Qualifiers: COPD type: unspecified COPD Qualified Code(s): J44.9 - Chronic obstructive pulmonary disease, unspecified (3) MCKAY (obstructive sleep apnea): Code(s): G47.33 - Obstructive sleep apnea (adult) (pediatric) Category: Medical (4) Pulmonary nodules: Code(s): R91.8 - Other nonspecific abnormal finding of lung field Category: Medical (5) Cough: Code(s): R05.9 - Cough, unspecified Category: Medical Qualifiers: Cough type: chronic Qualified Code(s): R05.3 - Chronic cough (6) Allergies: Code(s): T78.40XA - Allergy, unspecified, initial encounter Category: Medical Qualifiers: Encounter type: initial encounter Qualified Code(s): T78.40XA - Allergy, unspecified, initial encounter (7) Chest pain: Comment: non pleuritic, CXR ok, +reproducible, likely MS Code(s): R07.9 - Chest pain, unspecified Category: Medical Qualifiers: Chest pain type: intercostal pain Qualified Code(s): R07.82 - Intercostal pain (8) Lesion of bronchus: Code(s): J98.09 - Other diseases of bronchus, not elsewhere classified Category: Medical Plan start Azithromycin MWF EKG Continue Trelegy Duoneb/Combivent as needed Prednisone 5mg daily Needs to stop smoking: nicotine patch continue Daliresp change Dupixent to Nucala continue exercise regimen F/U 3 months Orders: Orders ECG 12 lead EKG Today J44.9 - Chronic obstructive pulmonary disease, unspecified Medications: New prednisone PO daily; Take 2 tabs daily x 5 days, then 1 tablet daily x 5 days 15 tabs 0RF 10 days azithromycin Take 1 tablet on Thursday/Thursday/Thursday 250 mg PO 3XW 12 tabs 6RF 28 days K21.9 - Gastro-esophageal reflux disease without esophagitis Coding Level of Care Code Est Pt Level 4 (61361) Complex EM visit Add On G2211 Diagnoses Atelectasis J98.11 Simple chronic bronchitis J44.9 COPD type: unspecified COPD MCKAY (obstructive sleep apnea) G47.33 Pulmonary nodules R91.8 Chronic cough R05.3 Cough type: chronic Allergy, initial encounter T78.40XA Encounter type: initial encounter Intercostal pain R07.82 Chest pain type: intercostal pain Lesion of bronchus J98.09 Time Spent (min) 17
[2024-12-09 10:29] VITALS: BP 124/62; PULSE 85; O2SAT 96; BMI 27.1
== END 2024-12-09 11:11 | disposition home or self-care (01) ==
LOC: HO.HPS 10:19
PROVIDERS: PCP Internal Medicine Geriatric Medicine; Visit Provider Hospitalist
DX: J98.11 Atelectasis (principal); J44.9 Chronic obstructive pulmonary disease, unspecified; G47.33 Obstructive sleep apnea (adult) (pediatric); R91.8 Other nonspecific abnormal finding of lung field; R05.3 Chronic cough; T78.40XA Allergy, unspecified, initial encounter; R07.82 Intercostal pain; J98.09 Other diseases of bronchus, not elsewhere classified
CPT/HCPCS: 99214; G2211

== ENCOUNTER → 2024-12-09 10:19 | Outpatient (BNVA) | payer OTHER, SELFPAY | PROVIDERS: PCP Internal Medicine Geriatric Medicine; Visit Provider Hospitalist | DX: J98.11 Atelectasis (principal); J44.9 Chronic obstructive pulmonary disease, unspecified; G47.33 Obstructive sleep apnea (adult) (pediatric); R05.3 Chronic cough; Z91.09 Other allergy status, other than to drugs and biological substances; R07.82 Intercostal pain; J98.09 Other diseases of bronchus, not elsewhere classified | CPT/HCPCS: 99212 ==

== ENCOUNTER 2024-12-12 11:23 | Outpatient (AMB) | payer OTHER, SELFPAY ==
[2024-12-12 11:26] VITALS: BP 118/82; PULSE 87; RESP 16; O2SAT 97; BMI 10.3
--- NOTE | 2024-12-12 11:26 | MHC.OFFVIS ---
Vital Signs 12/12/24 11:26 Height 5 ft 5 in Weight 62 lb BMI 10.3 BP 118/82 Blood Pressure Location Lt brachial Position Sitting Respiration 16 Pulse 87 Pulse Source Pulse Oximeter Pulse Oximetry (%) 97 Oxygen Delivery Method Room Air Intake Visit Reasons: Postlaminectomy syndrome Financial Writer Required: No Allergies HANK Inhibitors (HANK INHIBITORS) Allergy (Severe, Verified 12/12/24 11:29) ANGIO EDEMA enalapril Allergy (Severe, Verified 12/12/24 11:29) Anaphylaxis erythromycin base (ERYTHROMYCIN BASE) Allergy (Severe, Verified 12/12/24 11:29) HIVES ALL OVER metformin Allergy (Verified 12/12/24 11:29) Unknown hydromorphone (From DILAUDID) Adverse Reaction (Severe, Verified 12/12/24 11:29) TINGLING, PT DOES NOT LIKE THE FEELING MED GIVES HER Medication List - Last Reconciled 12/12/24 by Maritza Christiansen LPN allopurinol 100 mg PO DAILY 90 days arm brace (HANK Elbow Brace) As directed aspirin 81 mg PO BEDTIME atorvastatin 80 mg See Protocol PO BEDTIME azithromycin 250 mg PO 3XW 28 days baclofen 10 mg PO Q8H PRN blood sugar diagnostic (FreeStyle Lite Strips) As directed carvedilol 6.25 mg PO BID cetirizine 10 mg PO DAILY PRN docusate sodium 1 cap PO BEDTIME dulaglutide (Trulicity) 1.5 mg subcut WE@0900 empagliflozin (Jardiance) 10 mg PO DAILY fluticasone propionate 50 mcg/actuation 1 spray intranasal DAILY PRN olbmcwaulim-rysipvvwh-htipvuhk 100-62.5-25 mcg (Trelegy Ellipta) 1 ea inhalation DAILY insulin aspart U-100 (Novolog FlexPen U-100 Insulin aspart) 6 - 10 sliding scale doses See Protocol subcut TIDAC insulin glargine (Lantus Solostar U-100 Insulin) 35 units subcut BID ipratropium-albuterol 0.5 mg-3 mg(2.5 mg base)/3 mL 3 mL inhalation RQ4H WHILE AWAKE PRN ipratropium-albuterol 20-100 mcg/actuation (Combivent Respimat) 2 puffs inhalation BID lancets (TRUEplus Lancets) As directed levothyroxine 112 mcg PO DAILY@0600 lidocaine 5% 1 patch topical DAILY montelukast 10 mg PO BEDTIME naloxone 4 mg/actuation 1 spray intranasal ONCE PRN nebulizers As directed omeprazole 20 mg PO BID@0630,1630 ondansetron 4 mg PO Q8H PRN 4 days oxycodone-acetaminophen 7.5-325 mg 1 tab PO Q6H PRN prednisone PO daily; Take 2 tabs daily x 5 days, then 1 tablet daily x 5 days 10 days prednisone 5 mg PO DAILY pregabalin 100 mg PO TID pyridoxine (vitamin B6) 50 mg PO DAILY roflumilast 500 mcg PO DAILY sennosides (senna) 8.6 mg PO BID Ventolin HFA 90 mcg/actuation (albuterol sulfate) 2 puffs inhalation Q4-6H PRN NS HPI HPI Postlaminectomy syndrome: Details: History of Present Illness The patient is a 63-year-old female presenting with chronic lumbar radicular pain. She has a history of COPD, poorly controlled diabetes, coronary artery disease, and heart failure. The lumbar radicular pain extends from the lower back to the legs, primarily affecting the left leg, and is severe enough to cause crying episodes lasting up to an hour. The pain starts in the back, radiates to the hip, and then down the leg to the toes. She underwent an L5-S1 microdiscectomy seven years ago, which resulted in significant postoperative pain exacerbation without improvement in preoperative symptoms. Prior conservative management included physical therapy and steroid injections, which provided temporary relief. Currently, she takes baclofen and oxycodone for pain management and prednisone for COPD, along with multiple inhalers. She also takes baby aspirin due to a stent placed in her right ventricular seven years ago. Recent imaging revealed significant collapse of the L5-S1 disc with modic changes and moderate spinal stenosis at L4-5 and L5-S1. A right paracentral disc herniation compresses the right exiting nerve root. Bone quality appears weakened, precluding candidacy for fusion surgery, and a previous DEXA scan indicated borderline osteoporosis. She was hospitalized recently for RSV, influenza A and B, and pneumonia, which exacerbated her diabetes control. Pain Description - Onset: Chronic, with significant exacerbation post-microdiscectomy - Quality: Severe, causing crying episodes - Location: Lower back radiating to the left leg - Radiation: From back to hip, down to toes - Exacerbating factors: Mechanical issues due to disc degeneration - Relieving factors: Temporary relief from physical therapy and steroid injections - Interference: Affects daily activities, causing significant distress Physical Exam - Musculoskeletal: Positive straight leg raise bilaterally Results - Imaging: Significant collapse of L5-S1 disc with modic changes, moderate spinal stenosis at L4-5 and L5-S1, right paracentral disc herniation compressing the right exiting nerve root - Bone Density: Weakened bone quality, borderline osteoporosis Pain Management - Affect: Pain causes significant emotional distress, leading to crying episodes - Analgesia: Currently using baclofen and oxycodone; previous steroid injections provided temporary relief - Adverse Effects: Potential hyperglycemia from steroid use - Activities of Daily Living: Pain significantly interferes with daily activities - Aberrant Drug Related Behaviors: No evidence of medication misuse reported [facility] Medical History (Updated 12/05/24 @ 00:00 by Belkis Jara) Chest pain History of RSV infection (03/2024) Hx of influenza (03/2024) Influenza A Asthma-COPD overlap syndrome Allergies History of back pain History of neuropathy Smokes tobacco daily Opioid dependence Nephrolithiasis Hyperlipidemia HTN (hypertension) Cardiomyopathy Myocardial infarction CAD (coronary artery disease) Cough Hypothyroidism, postsurgical Tubular adenoma Diabetes MCKAY (obstructive sleep apnea) Irritable bowel syndrome Hyperthyroidism Polycythemia Smoker Hypoxia COPD exacerbation Lesion of bronchus Tracheal anomaly Multinodular goiter Vitamin D deficiency Atelectasis Subclinical hyperthyroidism Goiter Pneumonia Pulmonary nodules COPD (chronic obstructive pulmonary disease) Surgical History History of coronary artery stent placement Hx of thyroidectomy History of thyroid surgery History of esophagogastroduodenoscopy (EGD) Hx of colonoscopy History of back surgery History of ureterostomy S/P lumpectomy, right breast History of cholecystectomy History of tonsillectomy Family History Father No problems noted. Mother No problems noted. Paternal Aunt Diabetes Social History Household Members: Significant Other Housing: House Are you a primary critical care unit nurse to a significant other at home: No Do you presently have visiting nurse or other home services: No Alcohol intake: current Alcohol intake frequency: holidays/special occasions only Comment: declines alarm, steadt to walk short distance to commode Patient Tobacco Use Status: Current everyday Tobacco user Tobacco use type: Cigarette Cigarette Packs Per Day: 0.5 Cigarettes Per Day: 10 e-Cigarette/Vaping Use: Never Used Second Hand Smoke Exposure: Yes Substance Use Type: Other Advance Directives Date on File: 01/24/21 service: No Current occupational status: disabled Physical Exam Vital Signs: Last Vital Signs Pulse 87 12/12/24 11:26 Resp 16 12/12/24 11:26 BP 118/82 12/12/24 11:26 Pulse Ox 97 12/12/24 11:26 Oxygen Delivery Method Room Air 12/12/24 11:26 BMI result Body Mass Index 10.3 Assessment & Plan Assessment & Plan (1) Lumbar radiculopathy: Code(s): M54.16 - Radiculopathy, lumbar region Category: Medical Plan Plan Patient was informed and verbally consented to the use of an ambient scribe for clinic note documentation during this visit. 1. Chronic Lumbar Radicular Pain - Plan for a left L5 transforaminal epidural steroid injection for left lumbar radiculopathy. - Discussed potential for temporary relief and risks of hyperglycemia post-injection. - Advised monitoring blood glucose levels closely after the injection. 2. Chronic Obstructive Pulmonary Disease (Copd) - Continue prednisone and inhalers as current management. 3. Poorly Controlled Diabetes Mellitus - Monitor blood glucose levels closely, especially post-steroid injection. - Current A1c is 8.3, aim to maintain below 8 for future interventions. 4. Coronary Artery Disease - Continue baby aspirin regimen for stent maintenance. 5. Osteoporosis - Bone quality assessment precludes surgical intervention; continue monitoring bone density. Discussion Notes I discussed with the patient the plan for a left L5 transforaminal epidural steroid injection to manage her left lumbar radiculopathy. We reviewed the potential benefits of temporary pain relief and the risks, including hyperglycemia due to steroid use. The patient was advised to monitor her blood glucose levels closely following the injection to prevent complications. Patient Instructions - Monitor blood glucose levels closely after the steroid injection. - Continue current medications including prednisone, inhalers, and baby aspirin. - Report any significant changes in pain or new symptoms to the healthcare provider. Coding Level of Care Code New Pt Level 4 (59959) Diagnoses Lumbar radiculopathy M54.16
--- OUTSIDE RECORDS SUMMARY | 2024-12-12 15:34 | XMS_ITS | Encounter Summary ---
Author Organization [employer] Address [address] [facility] [address] [place] [address] Care Team Providers Care Link Trainer Name Role Phone Name, Bobby GRADY Primary Care Provider [phone] Reason for Visit * Reason Comments Med Refill Encounter Details Date Type Department Care Team ([facility] Contact Info) Description 07/20/2024 Refill [facility] MEDICINE [address] [place] [address] Sherly Pichardo FNP [address] [place] [address] Social History Tobacco Use Types Packs/Day Years [...] Description 01/25/2025 9:30 AM EDT Office Visit [facility] MEDICINE [address] [place] [address] Name, MD Bobby [address] [place] [address] 02/10/2025 9:30 AM EST Telemedicine [facility] MEDICINE [address] [place] [address] Skye Melton, HODA 03/14/2025 10:00 AM EST Office Visit [facility] OPTOMETRY [address] [place] [address] Abbey Deng OD [address] [place] [address] documented as of this encounter Goals Goal Patient Goal Type Associated Problems Recent Progress Patient-Stated? Author Smoking cessation General No Inga Magaña, PharmD documented as of this encounter Visit Diagnoses Not on filedocumented in this encounter Additional Health Concerns Assessment Noted Time PHQ-9 Depression Total Score: 0 06/19/19 24 10:09 AM EDT documented as of this encounter Care Teams Link Trainer Relationship Specialty Start Date End Date Name, MD Bobby [address] [place] [address] PCP - General Family Medicine 06/01/15 Eloina 05/13/24 documented as of this encounter
--- OUTSIDE RECORDS SUMMARY | 2024-12-12 15:34 | XMS_ITS | Encounter Summary ---
Author Organization [employer] Address [address] [place] [address] Care Team Providers Care Associate Professor Of Automation Name Role Phone Name, Bobby GRADY Primary Care Provider [phone] Encounter Details Date Type Department Care Team (Latest Contact Info) Description 04/29/2024 Lab Requisition [facility] - Main Lab [address] [place] [address] Yared Weaver MD [address] [place] [address], [phone] Atherosclerotic heart disease of [place] coronary artery without angina pectoris Social History [...] 5:10 AM EST Atherosclerotic heart disease of [place] coronary artery without angina pectoris BASIC METABOLIC PANEL Routine 04/29/2024 5:10 AM EST Atherosclerotic heart disease of [place] coronary artery without angina pectoris documented in this encounter Results * (ABNORMAL) Basic metabolic panel (04/29/2024 5:10 AM EST) Sodium 143 133 - 145 mmol/L LAB CHEMISTRY METHOD 04/29/2024 11:20 AM EST [facility] Potassium 4.5 3.5 - 5.5 mmol/L LAB CHEMISTRY METHOD 04/29/2024 11:20 AM [facility] Chloride 106 96 - 110 mmol/L LAB CHEMISTRY METHOD 04/29/2024 11:20 AM [facility] CO2 31 21 - 32 mmol/L LAB CHEMISTRY METHOD 04/29/2024 11:20 AM [facility] Anion Gap 6 3 - 11 LAB CHEMISTRY METHOD 04/29/2024 11:20 AM [facility] Glucose 97 70 - 100 mg/dL LAB CHEMISTRY METHOD 04/29/2024 11:20 AM [facility] BUN 34(H) 5 - 25 mg/dL LAB CHEMISTRY METHOD 04/29/2024 11:20 AM [facility] Creatinine 0.80 0.50 - 1.10 mg/dL LAB CHEMISTRY METHOD 04/29/2024 11:20 AM [facility] eGFR 82 >=60 mL/min/1. 73m2 LAB CHEMISTRY METHOD 04/29/2024 11:20 AM [facility] Comment:Calculation based on the Chronic Kidney Disease Epidemiology Collaboration (CKD-EPI) equation refit without adjustment for race. BUN/Creatinine Ratio 42.5 LAB CHEMISTRY METHOD 04/29/2024 11:20 AM [facility] Calcium 7.9(L) 8.5 - 10.5 mg/dL LAB CHEMISTRY METHOD 04/29/2024 11:20 AM [facility] Blood Venous blood specimen / Unknown Venipuncture / Unknown 04/29/2024 5:10 AM EST 04/29/2024 9:30 AM EST us Yared Weaver MD LAB BLOOD ORDERABLES Final Resul t [facility] [address] [place] [address], * (ABNORMAL) Complete blood count (04/29/2024 5:10 AM EST) [facility] WBC 18.2(H) 4.8 - 10.8 K/mcL LAB HEMETOLOGY METHOD 04/29/2024 10:30 AM [facility] RBC 5.30(H) 3.80 - 4.80 M/mcL LAB HEMETOLOGY METHOD 04/29/2024 10:30 AM [facility] Hemoglobin 15.0 11.5 - 16.0 g/dL LAB HEMETOLOGY METHOD 04/29/2024 10:30 AM [facility] Hematocrit 48.0(H) 35.0 - 47.0 % LAB HEMETOLOGY METHOD 04/29/2024 10:30 AM [facility] MCV 90.2 79.0 - 98.0 FL LAB HEMETOLOGY METHOD 04/29/2024 10:30 AM [facility] MCH 28.2 27.0 - 32.0 pcg LAB HEMETOLOGY METHOD 04/29/2024 10:30 AM [facility] MCHC 31.3(L) 32.0 - 37.0 g/dL LAB HEMETOLOGY METHOD 04/29/2024 10:30 AM [facility] RDW 14.7 11.0 - 15.0 % LAB HEMETOLOGY METHOD 04/29/2024 10:30 AM [facility] Platelets 238 130 - 400 K/mcL LAB HEMETOLOGY METHOD 04/29/2024 10:30 AM [facility] MPV 11.8(H) 7.0 - 11.0 FL LAB HEMETOLOGY METHOD 04/29/2024 10:30 AM [facility] NRBC 0.0 <1.0 % LAB HEMETOLOGY METHOD 04/29/2024 10:30 AM [facility] NRBC Absolute 0.00 <0.10 K/mcL LAB HEMETOLOGY METHOD 04/29/2024 10:30 AM EST [facility] Blood Venous blood specimen / Unknown Venipuncture / Unknown 04/29/2024 5:10 AM EST 04/29/2024 9:30 AM EST us Yared Weaver MD LAB BLOOD ORDERABLES Final Resul t [facility] [address] [place] [address], documented in this encounter Visit Diagnoses Diagnosis Atherosclerotic heart disease of [place] coronary artery without angina pectoris documented in this encounter Care Teams Associate Professor Of Automation Relationship Specialty Start Date End Date Name, MD Bobby [address] [place], [place] PCP - General Internal Medicine 04/01/18 documented as of this encounter
--- OUTSIDE RECORDS SUMMARY | 2024-12-12 15:34 | XMS_ITS | Encounter Summary ---
Author Organization [employer] Address [address] [place] [address] [address], [place] [address] Care Team Providers Care Mannequin Maker Name Role Phone Bobby David MD Primary Care Provider Inga Magaña PharmD Unavailable Reason for Visit * Reason Onset Date Comments Referral 04/23/2022 Encounter Details Date Type Department Care Team (Late st Contact Info) Description 04/23/2022 Telephone [facility] [address] [place] [address] NameBobby MD [address] [place] [address] Referral Social History Tobacco Use Types Packs/Day [...] Pt wants referral to see Gastroenterology in [facility], as pt has hx of colon cancer and has been waiting 10 years for colonoscopy. Pt stated June at [facility] has an apptset up for pt on May 13 and needs referral placed before then. Pt verbalized understanding and denied having any further questions or concerns at this time. * Telephone Encounter - Octavio Holliday - 04/23/2022 11:46 AM EST Tc from pt requesting an referral to see an gastroenterology at [facility] Please contact pt at [phone] documented in this encounter Plan of Treatment Upcoming Encounters Date Type Department Care Team (Late st Contact Info) Description 01/25/2025 9:30 AM EDT Office Visit [facility] [address] [place] [phone] Name, MD Bobby [address] [place] [phone] 02/10/2025 9:30 AM EST Telemedicine [facility] [address] [place] [phone] Skye Melton RN 03/14/2025 10:00 AM EST Office Visit [facility] OPTOMETRY [address] [place] [address] Abbey Deng, OD [address] [place] [address] documented as of this encounter Visit Diagnoses Diagnosis History of colon polyps- Primary Family history of colon cancer Family history of malignant neoplasm of gastrointestinal tract documented in this encounter Additional Health Concerns Assessment Noted Time PHQ-9 Depression Total Score: 0 03/11/20 11:47 AM EST documented as of this encounter Care Teams Mannequin Maker Relationship Specialty Start Date End Date Name, MD Bobby [address] [place] [address] [phone] PCP - General Family Medicine 06/01/15 Inga Magaña, MiltonD [address] [place] [address] [place] [phone] Pharmacist Internal Medicine 01/07/23 09/29/23 Eloina 05/13/24 documented as of this encounter
--- OUTSIDE RECORDS SUMMARY | 2024-12-12 15:34 | XMS_ITS | Encounter Summary ---
Author Organization [employer] Address [address] [place] [address] Care Team Providers Care Music Video Director Name Role Phone Name, Bobby GRADY Primary Care Provider Encounter Details Date Type Department Care Team (Late st Contact Info) Description 05/08/2024 Lab Requisition [facility] - Main Lab [address] [place] [address] Yared Weaver MD [address] [place] [address], [phone] Hypothyroidism, unspecified Social History Tobacco Use [...] 05/09/2024 1:03 PM EST [facility] Blood Venous blood specimen / Unknown Venipuncture / Unknown 05/09/2024 5:33 AM EST 05/09/2024 11:27 AM EST us Yared Weaver MD LAB BLOOD ORDERABLES Final Resul t [facility] H[facility] LAB [address] [place] [address], documented in this encounter Visit Diagnoses Diagnosis Hypothyroidism, unspecified documented in this encounter Care Teams Music Video Director Relationship Specialty Start Date End Date Name, MD Bobby [address] [place], [place] PCP - General Internal Medicine 04/01/18 documented as of this encounter
--- OUTSIDE RECORDS SUMMARY | 2024-12-12 15:34 | XMS_ITS | Encounter Summary ---
Author Organization [employer] Address [address] [place] [address] [address] [place] [address] Care Team Providers Care Accountant Helper Name Role Phone Name, Bobby GRADY Primary Care Provider [phone] Inga Magaña PharmD Unavailable [phone] Encounter Details Date Type Department Care Team (Late Contact Info) Description 09/01/2022 Abstract [facility] MEDICINE [address] [place] [phone] NameBobby MD [address] [place] [phone] Social History Tobacco Use Types Packs/Day Years [...] Description 01/25/2025 9:30 AM EDT Office Visit [facility]INE [address] [place] [address] [phone] Bobby David MD [address] [place] [phone] 02/10/2025 9:30 AM EST Telemedicine [facility] MEDICINE [address] [place] [address] Skye Melton, RN 03/14/2025 10:00 AM EST Office Visit [facility] OPTOMETRY [address] [place] [address] Patricksophy Abbey, OD [address] [place] [address] documented as of this encounter Visit Diagnoses Not on filedocumented in this encounter Additional Health Concerns Assessment Noted Time PHQ-9 Depression Total Score: 0 03/11/20 22 11:47 AM EST documented as of this encounter Care Teams Accountant Helper Relationship Specialty Start Date End Date Name, MD Bobby [address] [place] [address] PCP - General Family Medicine 06/01/15 Inga Magaña, Lucio [address] [place] [phone] Pharmacist Internal Medicine 01/07/23 09/29/23 Eloina 05/13/24 documented as of this encounter
--- OUTSIDE RECORDS SUMMARY | 2024-12-12 15:34 | XMS_ITS | Clinical Summary ---
Author Organization [address] Address [address] [place] [phone] Phone Care Team Providers Care Diffusion Operator Name Role Phone Name, Bobby GRADY Primary Care Provider [phone] Surgical History Surgery Date Site/Laterality Comments CHOLECYSTECTOMY PROCEDURE: [place] CHOLECYSTECTOMY OTHER SURGICAL HISTORY PROCEDURE: HISTORY OTHER; COMMENT: Cardiac stent KIDNEY STONE SURGERY PROCEDURE: [place] NEPHROLITHOTOMY REMOVAL CALCULUS BREAST LUMPECTOMY Right PROCEDURE: HISTORICAL BREAST LUMPECTOMY; COMMENT: benign Medical History Medical History Date Comments Coronary atherosclerosis of unspecified type of vessel, tolowa dee-ni' or graft 07/07/2011 DX:Coronary atherosclerosis of unspecified type of vessel, tolowa dee-ni' or graft Hypertension 07/07/2011 DX:Hypertension Historical Medical DX 07/07/2011 DX:Hyperli pidemia LDL goal < 70 DM2 (diabetes mellitus, type 2) ([facility] V24, [facility] V28) 07/07/2011 DX:DM2 (diabetes mellitus, type 2) ([facility]) Tobacco abuse 07/07/2011 DX:Tobacco abuse Allergy-induced asthma 07/07/2011 DX:Allerg y-induced asthma Family History Medical History Relation Name Comments Breast cancer Aunt 1 maternal aunt, at 60 Breast cancer Aunt 2 paternal aunt, at 60 Other: hold worker ca Aunt 2 Colon cancer Brother at [...] 8:21 AM EST Atherosclerotic heart disease of [place] de[place]' coronary artery without angina pectoris from Last [...] LAB CHEMISTRY METHOD 05/12/2024 11:22 AM EST [facility] CO2 31 21 - [...] LAB CHEMISTRY METHOD 05/12/2024 11:22 AM EST [facility] Creatinine 0.80 0.50 - 1.10 mg/dL LAB CHEMISTRY METHOD 05/12/2024 11:22 AM [facility] eGFR 82 >=60 mL/min/1. 73m2 LAB CHEMISTRY METHOD 05/12/2024 11:22 AM EST [facility] Comment:Calculation based on the [...] Resul t [facility] [address] [place] [address], from Last 3 Months or Most Recently Relevant to Health Maintenance Insurance [facility] [employer] Member Subscriber Plan / Payer (Ef fective 2022-Present) Name:Marita Lawrence Relation to Subscriber:Self Name:Marita Lawrence Payer ID:[id number] Group ID:[id number] Type:Not on file Address: [place] [address] [address] [address] Care Teams Diffusion Operator Relationship Specialty Start Date End Date Name, MD Bobby [address] [place], [place] PCP - General Internal Medicine 04/01/18
--- OUTSIDE RECORDS SUMMARY | 2024-12-12 15:34 | XMS_ITS | Encounter Summary ---
Author Organization [employer] Address 75 [facility] 7t [place] [address] Care Team Providers Care Machine Ceramic Coater Name Role Phone Name, Bobby GRADY Primary Care Provider [phone] Inga Magaña PharmD Unavailable [phone] Reason for Visit * Reason Comments Med Change Request Encounter Details Date Type Department Care Team ([facility] st Contact Info) Description 06/09/2023 Refill [facility] [address] [place] [address] Name, MD Bobby 230 [place] [address] Social History Tobacco Use Types Packs/Day Years [...] Description 01/25/2025 9:30 AM EDT Office Visit [facility] [address] [place] [address] Name, MD Bobby [address] [place] [address] 02/10/2025 9:30 AM EST Telemedicine [facility] [address] [place] [address] Skye Melton, HODA 03/14/2025 10:00 AM EST Office Visit [facility] [address] [place] [address] Abbey Deng, OD [address] [place] [address] documented as of this encounter Goals Goal Patient Goal Type Associated Problems Recent Progress Patient-Stated? Author Smoking cessation General No Inga Magaña, PharmD documented as of this encounter Visit Diagnoses Not on filedocumented in this encounter Additional Health Concerns Assessment Noted Time PHQ-9 Depression Total Score: 0 03/11/20 11:47 AM EST documented as of this encounter Care Teams Machine Ceramic Coater Relationship Specialty Start Date End Date NameBobby MD [address] [place] [address] PCP - General Family Medicine 06/01/15 Inga Magaña, PharmD [address] [place] [address] Pharmacist Internal Medicine 01/07/23 09/29/23 Eloina 05/13/24 documented as of this encounter
--- OUTSIDE RECORDS SUMMARY | 2024-12-12 15:34 | XMS_ITS | Encounter Summary ---
Author Organization [employer] Address [address] [place] [address] Care Team Providers Care Iron Melter Name Role Phone Name, Bobby GRADY Primary Care Provider Encounter Details Date Type Department Care Team (Latest Contact Info) Description 05/11/2024 Lab Requisition [facility] - Main Lab [address] [place] [address] Yared Weaver MD [address] [place] [address], [phone] Atherosclerotic heart disease of [place] coronary artery without angina pectoris Social History [...] [place] coronary artery without angina pectoris BASIC METABOLIC PANEL Routine 05/12/2024 8:21 AM EST Atherosclerotic heart disease of [place] coronary artery without angina pectoris documented in this encounter Results * (ABNORMAL) Basic metabolic panel (05/12/2024 8:21 AM EST) Sodium 143 133 - 145 mmol/L LAB CHEMISTRY METHOD 05/12/2024 11:22 AM EST [facility] Potassium 3.6 3.5 - 5.5 mmol/L LAB CHEMISTRY METHOD 05/12/2024 11:22 AM [facility] Chloride 109 96 - 110 mmol/L LAB CHEMISTRY METHOD 05/12/2024 11:22 AM [facility] CO2 31 21 - 32 mmol/L LAB CHEMISTRY METHOD 05/12/2024 11:22 AM [facility] Anion Gap 3 3 - 11 LAB CHEMISTRY METHOD 05/12/2024 11:22 AM [facility] Glucose 95 70 - 100 mg/dL LAB CHEMISTRY METHOD 05/12/2024 11:22 AM [facility] BUN 21 5 - 25 mg/dL LAB CHEMISTRY METHOD 05/12/2024 11:22 AM [facility] Creatinine 0.80 0.50 - 1.10 mg/dL LAB CHEMISTRY METHOD 05/12/2024 11:22 AM [facility] eGFR 82 >=60 mL/min/1. 73m2 LAB CHEMISTRY METHOD 05/12/2024 11:22 AM [facility] Comment:Calculation based on the Chronic Kidney Disease Epidemiology Collaboration (CKD-EPI) equation refit without adjustment for race. BUN/Creatinine Ratio 26.3 LAB CHEMISTRY METHOD 05/12/2024 11:22 AM [facility] Calcium 8.0(L) 8.5 - 10.5 mg/dL LAB CHEMISTRY METHOD 05/12/2024 11:22 AM [facility] Blood Venous blood specimen / Unknown Venipuncture / Unknown 05/12/2024 8:21 AM EST 05/12/2024 10:56 AM EST us Yared Weaver MD LAB BLOOD ORDERABLES Final Resul t [facility] [address] [place] [address], * (ABNORMAL) Complete blood count (05/12/2024 8:21 AM EST) [facility] WBC 12.5(H) 4.8 - 10.8 K/mcL LAB HEMETOLOGY METHOD 05/12/2024 11:10 AM [facility] RBC 5.10(H) 3.80 - 4.80 M/mcL LAB HEMETOLOGY METHOD 05/12/2024 11:10 AM [facility] Hemoglobin 14.6 11.5 - 16.0 g/dL LAB HEMETOLOGY METHOD 05/12/2024 11:10 AM [facility] Hematocrit 46.7 35.0 - 47.0 % LAB HEMETOLOGY METHOD 05/12/2024 11:10 AM [facility] MCV 91.4 79.0 - 98.0 FL LAB HEMETOLOGY METHOD 05/12/2024 11:10 AM [facility] MCH 28.6 27.0 - 32.0 pcg LAB HEMETOLOGY METHOD 05/12/2024 11:10 AM [facility] MCHC 31.3(L) 32.0 - 37.0 g/dL LAB HEMETOLOGY METHOD 05/12/2024 11:10 AM [facility] RDW 16.3(H) 11.0 - 15.0 % LAB HEMETOLOGY METHOD 05/12/2024 11:10 AM [facility] Platelets 209 130 - 400 K/mcL LAB HEMETOLOGY METHOD 05/12/2024 11:10 AM [facility] MPV 10.7 7.0 - 11.0 FL LAB HEMETOLOGY METHOD 05/12/2024 11:10 AM [facility] NRBC 0.0 <1.0 % LAB HEMETOLOGY METHOD 05/12/2024 11:10 AM [facility] NRBC Absolute 0.00 <0.10 K/mcL LAB HEMETOLOGY METHOD 05/12/2024 11:10 AM EST [facility] Blood Venous blood specimen / Unknown Venipuncture / Unknown 05/12/2024 8:21 AM EST 05/12/2024 10:56 AM EST us Yared Weaver MD LAB BLOOD ORDERABLES Final Resul t [facility] [address] [place] [address], documented in this encounter Visit Diagnoses Diagnosis Atherosclerotic heart disease of [place] coronary artery without angina pectoris documented in this encounter Care Teams Iron Melter Relationship Specialty Start Date End Date Name, MD Bobby [address] [place], [place] PCP - General Internal Medicine 04/01/18 documented as of this encounter
--- OUTSIDE RECORDS SUMMARY | 2024-12-12 15:34 | XMS_ITS | Encounter Summary ---
Author Organization [employer] Address 75 [facility] 7t [place] [address] Care Team Providers Care Customs Officer Name Role Phone Name, Bobby GRADY Primary Care Provider [phone] Inga Magaña PharmD Unavailable [phone] Reason for Visit * Reason Onset Date Comments Med Refill 05/26/2023 Encounter Details Date Type Department Care Team (Late st Contact Info) Description 05/26/2023 Telephone [facility] 230 [place] [address] Name, MD Bobby [address] [place] [address] Med Refill Social History Tobacco Use Types [...] 7.5-325 MG tablet To be sent to: [facility] [place] [place] - [address] [place] [address] documented in this encounter Plan of Treatment Upcoming Encounters Date Type Department Care Team ([facility] st Contact Info) Description 01/25/2025 9:30 AM EDT Office Visit [facility] [address] [place] [address] Name, MD Bobby [address] [place] [address] 02/10/2025 9:30 AM EST Telemedicine [facility] [address] [place] [address] Skye Melton, RN 03/14/2025 10:00 AM EST Office Visit [facility] [address] [place] [address] bAbey Deng, KIKA [address] [place] [address] documented as of this encounter Goals Goal Patient Goal Type Associated Problems Recent Progress Patient-Stated? Author Smoking cessation General No Inga Magaña, PharmD documented as of this encounter Visit Diagnoses Not on filedocumented in this encounter Additional Health Concerns Assessment Noted Time PHQ-9 Depression Total Score: 0 03/11/20 22 11:47 AM EST documented as of this encounter Care Teams Customs Officer Relationship Specialty Start Date End Date Name, MD Bobby [address] [place] [address] PCP - General Family Medicine 06/01/15 Inga Magaña, PharmD [address] [place] [address] Pharmacist Internal Medicine 01/07/23 09/29/23 Eloina 05/13/24 documented as of this encounter
--- OUTSIDE RECORDS SUMMARY | 2024-12-12 15:34 | XMS_ITS | Encounter Summary ---
Author Organization [employer] Address [address] [place] [address] Care Team Providers Care Social Sciences Lecturer Name Role Phone Name, Bobby GRADY Primary Care Provider [phone] Encounter Details Date Type Department Care Team (Latest Contact Info) Description 05/04/2024 Lab Requisition [facility] - Main Lab [address] [place] [address] Yared Weaver MD [address] [place] [address], [phone] Atherosclerotic heart disease of [place] coronary artery without angina pectoris Social History [...] 5:05 AM EST Atherosclerotic heart disease of [place] coronary artery without angina pectoris BASIC METABOLIC PANEL Routine 05/05/2024 5:05 AM EST Atherosclerotic heart disease of [place] coronary artery without angina pectoris documented in this encounter Results * (ABNORMAL) Basic metabolic panel (05/05/2024 5:05 AM EST) Sodium 144 133 - 145 mmol/L LAB CHEMISTRY METHOD 05/05/2024 11:28 AM EST [facility] Potassium 3.9 3.5 - 5.5 [...] MD LAB BLOOD ORDERABLES Final Resul t [facility] [address] [place] [address], * (ABNORMAL) Complete blood count (05/05/2024 5:05 [...] LAB HEMETOLOGY METHOD 05/05/2024 11:24 AM EST [facility] Blood Venous blood specimen / Unknown Venipuncture / Unknown 05/05/2024 5:05 AM EST 05/05/2024 9:37 AM EST us Yared Weaver MD LAB BLOOD ORDERABLES Final Resul t [facility] [address] [place] [address], documented in this encounter Visit Diagnoses Diagnosis Atherosclerotic heart disease of [place] coronary artery without angina pectoris documented in this encounter Care Teams Social Sciences Lecturer Relationship Specialty Start Date End Date Name, MD Bobby [address] [place], [place] PCP - General Internal Medicine 04/01/18 documented as of this encounter
--- OUTSIDE RECORDS SUMMARY | 2024-12-12 15:34 | XMS_ITS | Encounter Summary ---
Author Organization [employer] Address [address] [place] [address] 7t [place] [address] Care Team Providers Care Slate Splitter Name Role Phone Name, Bobby GRADY Primary Care Provider [phone] Inga Magaña PharmD Unavailable [phone] Reason for Visit * Reason Comments Med Refill Encounter Details Date Type Department Care Team (Late st Contact Info) Description 10/03/2022 Refill [facility] [address] [place] [address] Name, MD Bobby [address] [place] [address] Lumbar radiculopathy Social History Tobacco Use Types [...] 01/25/2025 9:30 AM EDT Office Visit [facility] [address] [place] [address] Name, MD Bobby [address] [place] [address] 02/10/2025 9:30 AM EST Telemedicine [facility] [address] [place] [address] Skye Melton, HODA 03/14/2025 10:00 AM EST Office Visit [facility] [address] [place] [address] Abbey Deng OD [address] [place], [place] documented as of this encounter Visit Diagnoses Diagnosis Lumbar radiculopathy Thoracic or lumbosacral neuritis or radiculitis, unspecified documented in this encounter Additional Health Concerns Assessment Noted Time PHQ-9 Depression Total Score: 0 03/11/20 22 11:47 AM EST documented as of this encounter Care Teams Slate Splitter Relationship Specialty Start Date End Date Name, MD Bobby [address] [place] [address] PCP - General Family Medicine 06/01/15 Inga Magaña PharmD [address] [place] [address] Pharmacist Internal Medicine 01/07/23 09/29/23 Eloina 05/13/24 documented as of this encounter
--- OUTSIDE RECORDS SUMMARY | 2024-12-12 15:34 | XMS_ITS | Encounter Summary ---
Author Organization [employer] Address [address] [place] [address] 7t [place] [address] Care Team Providers Care Montessori Lead Teacher Name Role Phone Name, Bobby GRADY Primary Care Provider Inga Magaña PharmD Unavailable [phone] Reason for Visit * Reason Comments Med Refill Encounter Details Date Type Department Care Team (Late st Contact Info) Description 04/07/2022 Refill [facility] [address] [place] [address] Sherly Pichardo, CERTIFIED NOVELL ENGINEER [address] [place] [address] Chronic low back pain with sciatica, sciatica [...] Description 01/25/2025 9:30 AM EDT Office Visit [facility] [address] [place] [address] Name, MD Bobby Lamont [place] [address] 02/10/2025 9:30 AM EST Telemedicine [facility] [address] [place] [address] Skye Melton, HODA 03/14/2025 10:00 AM EST Office Visit [facility] [address] [place] [address] Abbey Deng, KIKA [address] [place] [address] documented as of this encounter Visit Diagnoses Diagnosis Chronic low back pain with sciatica, sciatica laterality unspecified, unspecified back pain laterality documented in this encounter Additional Health Concerns Assessment Noted Time PHQ-9 Depression Total Score: 0 03/11/20 22 11:47 AM EST documented as of this encounter Care Teams Montessori Lead Teacher Relationship Specialty Start Date End Date Name, [place] [address] PCP - General Family Medicine 06/01/15 Inga Magaña PharmD [address] [place] [address] Pharmacist Internal Medicine 01/07/23 09/29/23 Eloina 05/13/24 documented as of this encounter
--- OUTSIDE RECORDS SUMMARY | 2024-12-12 15:34 | XMS_ITS | Encounter Summary ---
Author Organization [employer] Address [address] [place] [address] 7[place] [address] Care Team Providers Care Walking Dragline Operator Name Role Phone Name, Bobby GRADY Primary Care Provider [phone] Inga Magaña PharmD Unavailable [phone] Reason for Visit * Reason Comments Med Refill Encounter Details Date Type Department Care Team (Late st Contact Info) Description 05/15/2022 Refill [facility] [address] [place] [address] Name, MD Bobby [address] [place] [address] Seasonal allergic rhinitis, unspecified trigger (Primary Dx) [...] Description 01/25/2025 9:30 AM EDT Office Visit [facility] [address] [place] [address] Name, MD Bobby [address] [place] [address] 02/10/2025 9:30 AM EST Telemedicine [facility] [address] [place] [address] Skye Melton, RN 03/14/2025 10:00 AM EST Office Visit [facility] [address] [place] [address] Abbey Deng, OD [address] [place] [address] documented as of this encounter Visit Diagnoses Diagnosis Seasonal allergic rhinitis, unspecified trigger- Primary documented in this encounter Additional Health Concerns Assessment Noted Time PHQ-9 Depression Total Score: 0 03/11/20 11:47 AM EST documented as of this encounter Care Teams Walking Dragline Operator Relationship Specialty Start Date End Date Name, MD Bobby [address] [place] [address] PCP - General Family Medicine 06/01/15 Inga Magaña PharmD [address] [place] [address] Pharmacist Internal Medicine 01/07/23 09/29/23 Eloina 05/13/24 documented as of this encounter
--- OUTSIDE RECORDS SUMMARY | 2024-12-12 15:34 | XMS_ITS | Encounter Summary ---
Author Organization [employer] Address 75 [facility] 7t [place] [address] Care Team Providers Care Shell Shop Supervisor Name Role Phone Name, Bobby GRADY Primary Care Provider [phone] Inga Magaña PharmD Unavailable [phone] Reason for Visit * Reason Onset Date Comments Med Refill 01/20/2023 Encounter Details Date Type Department Care Team ([facility] st Contact Info) Description 01/20/2023 Telephone [facility] [address] [place] [address] Name, MD Bobby 230 [place] [address] Med Refill Social History Tobacco Use Types [...] Description 01/25/2025 9:30 AM EDT Office Visit [facility] [address] [place] [address] Name, MD Bobby [address] [place] [address] 02/10/2025 9:30 AM EST Telemedicine [facility] [address] [place] [address] [phone] Skye Melton, RN 03/14/2025 10:00 AM EST Office Visit [facility] [address] [place], [place] [phone] Abbey Deng OD [address] [place] [address] documented as of this encounter Goals Goal Patient Goal Type Associated Problems Recent Progress Patient-Stated? Author Smoking cessation General No Inga Magaña, Lucio documented as of this encounter Visit Diagnoses Not on filedocumented in this encounter Additional Health Concerns Assessment Noted Time PHQ-9 Depression Total Score: 0 03/11/20 22 11:47 AM EST documented as of this encounter Care Teams Shell Shop Supervisor Relationship Specialty Start Date End Date Name, MD Bobby [address] [place] [address] PCP - General Family Medicine 06/01/15 Inga Magaña, MiltonD 230 [place] [address] Pharmacist Internal Medicine 01/07/23 09/29/23 Eloina 05/13/24 documented as of this encounter
--- OUTSIDE RECORDS SUMMARY | 2024-12-12 15:34 | XMS_ITS | Encounter Summary ---
Author Organization [employer] Address [address] [facility] 7t [place] [address] Care Team Providers Care Hydrodynamics Teacher Name Role Phone Name, Bobby GRADY Primary Care Provider [phone] Reason for Visit * Reason Comments Med Refill Encounter Details Date Type Department Care Team ([facility] Contact Info) Description 12/08/2024 Refill [facility] [address] [place] [address] Name, MD Bobby [address] [place] [address] Lumbar radiculopathy Social History Tobacco Use Types [...] Description 01/25/2025 9:30 AM EDT Office Visit [facility] [address] [place] [address] Name, MD Bobby [address] [place] [address] 02/10/2025 9:30 AM EST Telemedicine [facility] [address] [place] [address] Skye Melton, HODA 03/14/2025 10:00 AM EST Office Visit [facility] [address] [place] [address] Abbey Deng OD [address] [place] [address] documented as of this encounter Goals Goal Patient Goal Type Associated Problems Recent Progress Patient-Stated? Author Smoking cessation General No Archana, Inga, PharmD documented as of this encounter Visit Diagnoses Diagnosis Lumbar radiculopathy Thoracic or lumbosacral neuritis or radiculitis, unspecified documented in this encounter Additional Health Concerns Assessment Noted Time PHQ-9 Depression Total Score: 5 11/03/19 9:53 AM EDT documented as of this encounter Care Teams Hydrodynamics Teacher Relationship Specialty Start Date End Date Name, MD Bobby [address] [place] [address] PCP - General Family Medicine 06/01/15 Eloina 05/13/24 documented as of this encounter
--- OUTSIDE RECORDS SUMMARY | 2024-12-12 15:34 | XMS_ITS | Encounter Summary ---
Author Organization [employer] Address [address] [place] [address] [place], [place] [address] Care Team Providers Care Earth Moving Machine Operator Name Role Phone Name, Bobby GRADY Primary Care Provider [phone] Inga Magaña PharmD Unavailable Reason for Referral * Imaging (Routine) - Closed Specialty Diagnoses / Procedures Referred By Contac t Referred To Contact Diagnoses Other ovarian cyst, right side Procedures US Pelvis Transvaginal Monisha Linton CNM [address] [place] [address] Phone: tel: fax: [facility] MRI and CT Scan [address] [place] [address] Phone: tel: fax: Referral ID Status Reason Start Date Expiration Date Visits Re quested Visits Authorized [id number] Closed 04/01/2022 09/28/2022 1 1 Encounter Details Date Type Department Care Team ([facility] st Contact Info) Description 04/01/2022 Orders Only [facility]INE [address] [place], [place] [phone] Monisha Linton CNM [address] [place], [place] [phone] Other ovarian cyst, right side (Primary Dx) [...] AM EDT Office Visit [facility] [address] [place] [address] Name, MD Bobby [address] [place] [address] 02/10/2025 9:30 AM EST Telemedicine [facility] [address] [place] [address] Skye Melton, HODA 03/14/2025 10:00 AM EST Office Visit [facility] OPTOMETRY [address] [place] [address] Abbey Deng, OD [address] [place] [address] Scheduled Orders Name Type Priority Associated Diagnoses [...] documented as of this encounter Care Teams Earth Moving Machine Operator Relationship Specialty Start Date End Date Name, MD Bobby [address] [place] [address] PCP - General Family Medicine 06/01/15 Inga Magaña, MiltonD [address] [place] [address] Pharmacist Internal Medicine 01/07/23 09/29/23 Eloina 05/13/24 documented as of this encounter
--- OUTSIDE RECORDS SUMMARY | 2024-12-12 15:34 | XMS_ITS | Encounter Summary ---
Author Organization [employer] Address [address] [place] [address] 7[place] [address] Care Team Providers Care Aircraft Dispatcher Name Role Phone Name, Bobby GRADY Primary Care Provider Inga Magaña PharmD Unavailable [phone] Reason for Visit * Reason Comments Med Refill Encounter Details Date Type Department Care Team ([facility] Contact Info) Description 11/18/2022 Refill [facility] [address] [place], [place] [phone] Sherly Pichardo, GEETA [address] [place], [place] [phone] Type 2 diabetes mellitus without complications (CMS/HCC) [...] Upcoming Encounters Date Type Department Care Team ([facility] Contact Info) Description 01/25/2025 9:30 AM EDT Office Visit [facility] MED[facility]INE [address] [place] [address] Name, MD Bobby [address] [place] [address] 02/10/2025 9:30 AM EST Telemedicine [facility] MEDICINE [address] [place] [address] Skye Melton, RN 03/14/2025 10:00 AM EST Office Visit [facility] OPTOMETRY [address] [place] [address] Abbey Deng, OD [address] [place] [address] documented as of this encounter Visit Diagnoses Diagnosis Type 2 diabetes mellitus without complications (CMS/HCC) documented in this encounter Additional Health Concerns Assessment Noted Time PHQ-9 Depression Total Score: 0 03/11/20 11:47 AM EST documented as of this encounter Care Teams Aircraft Dispatcher Relationship Specialty Start Date End Date Name, MD Bobby [address] [place] [address] PCP - General Family Medicine 06/01/15 Inga Magaña PharmD [address] [place] [address] Pharmacist Internal Medicine 01/07/23 09/29/23 Eloina 05/13/24 documented as of this encounter
--- OUTSIDE RECORDS SUMMARY | 2024-12-12 15:34 | XMS_ITS | Encounter Summary ---
Author Organization [employer] Address [address] [place] [address] [address] [place] [address] Care Team Providers Care Routing Equipment Tender Name Role Phone Name, Bobby GRADY Primary Care Provider [phone] Reason for Visit * Reason Onset Date Comments Hospital Follow-up 05/17/2024 Encounter Details Date Type Department Care Team ([facility] st Contact Info) Description 05/17/2024 Telephone [facility] [address] [place] [address] Name, MD Bobby [address] [place] [address] Hospital Follow-up Social History Tobacco Use Types [...] from pt requesting a HDF appt. [place] [facility] [place] of admission: 04/06/2024 Discharge date: 05/12/2024 Diagnosed: RSV , Influenza A+B , COPD *Send message to [facility] Coordin[facility] documented in this encounter Plan of Treatment Upcoming Encounters Date Type Department Care Team (Late st Contact Info) Description 01/25/2025 9:30 AM EDT Office Visit [facility] [address] [place] [id number] Name, MD Bobby [address] [place] [address] 02/10/2025 9:30 AM EST Telemedicine [facility] [address] [place] [address] Skye Melton, RN 03/14/2025 10:00 AM EST Office Visit [facility] [address] [place] [id number] Abbey Deng, OD [address] [place] [address] documented as of this encounter Goals Goal Patient Goal Type Associated Problems Recent Progress Patient-Stated? Author Smoking cessation General Inga Radford, PharmD documented as of this encounter Visit Diagnoses Not on filedocumented in this encounter Additional Health Concerns Assessment Noted Time PHQ-9 Depression Total Score: 0 06/19/19 24 10:09 AM EDT documented as of this encounter Care Teams Routing Equipment Tender Relationship Specialty Start Date End Date Name, MD Bobby [address] [place] [address] PCP - General Family Medicine 06/01/15 [place] 05/13/24 documented as of this encounter
--- OUTSIDE RECORDS SUMMARY | 2024-12-12 15:34 | XMS_ITS | Encounter Summary ---
Author Organization [employer] Address [address] [facility] [address] [place] [address] Care Team Providers Care Nurse Specialist Name Role Phone Name, Bobby GRADY Primary Care Provider [phone] Inga Magaña PharmD Unavailable [phone] Reason for Visit * Reason Comments Med Refill Encounter Details Date Type Department Care Team ([facility] st Contact Info) Description 04/28/2023 Refill [facility] [address] [place] [address] Name, MD Bobby [address] [place] [address] Social History Tobacco Use Types Packs/Day Years [...] Description 01/25/2025 9:30 AM EDT Office Visit [facility] [address] [place] [phone] Name, MD Bobby [address] [place] [id number] 02/10/2025 9:30 AM EST Telemedicine [facility] [address] [place] [phone] Skye Melton, HODA 03/14/2025 10:00 AM EST Office Visit [facility] [address] [place] [address] Abbey Deng, OD [address] [place] [address] documented as of this encounter Goals Goal Patient Goal Type Associated Problems Recent Progress Patient-Stated? Author Smoking cessation General No Inga Magaña, PharmD documented as of this encounter Visit Diagnoses Not on filedocumented in this encounter Additional Health Concerns Assessment Noted Time PHQ-9 Depression Total Score: 0 03/11/20 11:47 AM EST documented as of this encounter Care Teams Nurse Specialist Relationship Specialty Start Date End Date NameBobby MD [address] [place] [id number] PCP - General Family Medicine 06/01/15 Inga Magaña, PharmD [address] [place] [phone] Pharmacist Internal Medicine 01/07/23 09/29/23 [place] 05/13/24 documented as of this encounter
--- OUTSIDE RECORDS SUMMARY | 2024-12-12 15:34 | XMS_ITS | Clinical Summary ---
Author Organization [email or web address] Address [address] [place] [address] 7 [place] [address] Care Team Providers Care Analytical Lab Technician Name Role Phone Name, Bobby GRADY Primary Care Provider [phone] Allergies Active Allergy Reactions Criticality Noted Date [...] miscIndications: Type 2 diabetes mellitus without complications ([facility]) Check BG twice daily 100 each [...] mellitus with other specified complication, unspecified whether watermaster insulin use (CMS/HCC) USE DIRECTED FIVE TIMES DAILY 200 each Active celecoxib (CeleBREX) 200 MG capsule TAKE 1 CAPSULE BY MOUTH TWICE DAILY WITH FOOD AND A FULL GLASS OF WATER NEEDED FOR PAIN Active empagliflozin (Jardiance) 10 MG Take 1 tablet (10 mg) by mouth Once per day. 30 tablet Active OneTouch Ultra Test test stripIndications :Type [...] MINUTES BEFORE MEALS 60 capsule 025 Active insulin glargine (Lantus SoloStar) 100 UNIT/ML penIndications:T ype 2 diabetes mellitus with other specified complication, unspecified whether mcc insulin use ([facility]) INJECT 40 units in the AM and [...] solution auto-injectorInd ications:Type 2 diabetes with complication ([facility]/HCC),COPD exacerbation ([facility]) INJECT ONE PEN (=1.5MG) SUBCUTANEOUSLY ONCE A [...] 21, 2024. 112 tablet 025 2024 Active baclofen (Lioresal) 10 MG tabletIndication s:Lumbar radiculopathy TAKE 1 TABLET BY MOUTH EVERY 8 HOURS NEEDED FOR MUSCLE SPASMS 45 tablet Active fluticasone (Flonase) 50 MCG/ACT nasal spray INSTILL 2 SPRAYS IN EACH NOSTRIL ONCE DAILY 16 g 3 024 2024 Discontinued oxyCODONE-acetam inophen (Percocet) 7.5-325 MG tabletIndication s:Chronic low back pain with sciatica, sciatica laterality unspecified, unspecified back pain laterality Take 1 tablet by mouth every 6 (six) hours if needed for severe pain for up to 28 days. TAKE 1 TABLET BY MOUTH EVERY 6 HOURS NEEDED FOR SEVERE PAIN 112 tablet 025 2024 Discontinued(R matias (will not trigger notification to Pharmacy)) baclofen (Lioresal) 10 MG tabletIndication s:Lumbar radiculopathy TAKE 1 TABLET BY MOUTH EVERY 8 HOURS NEEDED FOR MUSCLE SPASMS 45 tablet 025 2024 Discontinued Active Problems Problem Noted Date Diagnosed Date [...] o f colon 09/30/2023 CAD in [place] artery 09/02/2023 Opioid dependence, daily use 07/27/2023 [...] Encounters Date Type Department Care Team Description 12/08/2024 Refill [facility] [address] [place] [address] Name, MD Bobby Lumbar radiculopathy 12/04/2024 Orders Only GENERIC EXTERNAL DATA DEPARTMENT Provider, Generic External Data 11/25/2024 10:00 AM EDT Telemedicine [facility] [address] [place] [phone] Skye Melton, RN Long-term current use of opiate analgesic 11/25/[address] [address] Skye Melton, RN BPI scoring 11/25/2024 Travel 11/18/2024 Orders Only [facility] External Provider, [facility] 11/18/2024 Refill [facility] [address] [place] [address] Bobby David MD Chronic low back pain with sciatica, sciatica laterality unspecified, unspecified back pain laterality 11/14/[address] [address] Bobby David MD Durable Medical Equipment (A/C) 11/14/2024 Refill [facility] [address] [place] [address] Bobby David MD 11/07/2024 Refill [facility] [address] [place] [address] Bobby David MD Type 2 diabetes with complication ([facility]/HCC); COPD exacerbation (CMS/HCC) 11/04/[address] [address] Bobby David MD 11/04/2024 Refill [facility] [address] [place] [address] Bobby David MD Chronic obstructive pulmonary disease, unspecified (CMS/HCC) 11/02/2024 9:30 AM EDT Office Visit [address] [address] Bobby David MD Type 2 diabetes mellitus with other specified complication, unspecified whether mcc insulin use (CMS/HCC) (Primary Dx); Hypertension, unspecified type; Chronic obstructive pulmonary disease, unspecified COPD type (CMS/HCC); Atelectasis; Chronic pain syndrome; Acquired hypothyroidism; Encounter for screening mammogram for malignant neoplasm of breast 11/02/[address] [address] Bobby David MD FYI 11/02/2024 Travel 11/01/2024 Refill [facility] [address] [place] [address] Name, MD Bobby Lumbar radiculopathy 10/21/2024 Refill [facility] [address] [place] [address] Name, MD Bobby Chronic low back pain with sciatica, sciatica laterality unspecified, unspecified back pain laterality 10/05/2024 Refill [facility] [address] [place] [address] Name, MD Bobby Lumbar radiculopathy 09/21/2024 Refill [facility] [address] [place] [address] Name, MD Bobby Chronic low back pain [...] Description 01/25/2025 9:30 AM EDT Office Visit [facility] [address] [place] [address] Name, MD Bobby [address] [place] [address] 02/10/2025 9:30 AM EST Telemedicine [facility] [address] [place] [address] Skye Melton RN 03/14/2025 10:00 AM EST Office Visit [facility] OPTOMET[facility] [address] [place] [address] Abbey Deng, OD [address] [place] [address] Health Maintenance Due Date Last Done Comments [...] Diagnosis Comments XR CHEST 1 VIEW Routine 12/04/2024 1:22 PM EDT B TYPE NATRIURETIC PEPTIDE (BNP) Routine 12/04/2024 11:49 AM EDT HIGH SENSITIVITY TROPONIN I Routine 12/04/2024 11:35 AM EDT MAGNESIUM Routine 12/04/2024 11:35 AM EDT COMPREHENSIVE METABOLIC PANEL Routine 12/04/2024 11:35 AM EDT APTT Routine 12/04/2024 11:35 AM EDT PROTHROMBIN TIME-INR Routine 12/04/2024 11:35 AM EDT CBC WITH AUTO DIFFERENTIAL Routine 12/04/2024 11:35 AM EDT SARS COV2/INFLUENZA A/B AND RSV RNA QL NAAT Routine 12/04/2024 11:[address] CHEST WO CONTRAST Routine 11/19/2024 7:06 PM EDT POCT GLYCATED HEMOGLOBIN, TOTAL Routine 11/02/2024 9:46 AM EDT Type 2 diabetes mellitus with other specified complication, unspecified whether watermaster insulin use (CMS/HCC) POCT GLUCOSE Routine 11/02/2024 9:44 AM EDT Type 2 diabetes mellitus with other specified complication, unspecified whether watermaster insulin use (CMS/HCC) XR CHEST 2 VIEWS Routine 09/16/2024 10:2 4 AM EDT ALBUMIN, RANDOM URINE W/CREATININE Routine 12/29/2023 11:20 AM EDT Type 2 diabetes with complication (CMS/HCC) Atherosclerosis of coronary artery of [place] heart, unspecified vessel or lesion type, unspecified whether angina present Pain of toe of left foot LIPID PANEL, STANDARD Routine 12/29/2023 11:17 AM EDT Type 2 diabetes with complication (CMS/HCC) Atherosclerosis of coronary artery of [place] heart, unspecified vessel or lesion type, unspecified [...] Recently Relevant to Health Maintenance Results * XR Chest 1 View (12/04/2024 1:22 PM EDT) Anatomical Region Laterality Modality Chest Radiographic Ludivina ging 12/04/2024 1:22 PM EDT Narrative 12/04/2024 1:24 PM EDT [address] [address] XRay Report Signed Patient: Marita Zapata MR#: [id number] : 1960 Acct:[id number] Age/Sex: 63 / F ADM Date: 12/04/24 Loc: HO.ED Attending Dr: Ordering Physician: Drew Herrera Date of Service: 12/04/24 Procedure(s): XR chest 1V Accession Number(s): [id number] cc: Drew Herrera; Name,Bobby GRADY Reason for Exam: Pneumonia? Chest pain CLINICAL HISTORY: Pneumonia? Chest pain 1 view chest x-ray Comparison: CR/SR - XR CHEST 2V - 09/15/24 10:39 EDT Findings: There is mild airspace opacity within the right lower lung, similar to the prior study. The left lung is clear. No gross evidence of pleural effusion. Heart size is normal. No acute fracture. IMPRESSION: Mild airspace opacity within the right lower lung, similar to the prior exam. This may represent a chronic area of atelectasis or scarring. Superimposed infiltrate or recurrent infiltrate not excluded. This document has been electronically signed by: Cady Vázquez MD on 12/04/2024 13:22:33 Dictated By: Cady Vázquez MD Signed By: <Electronically signed by Cady Vázquez MD in OV> 12/04/24 1323 DD/ 1322 TD/TT: 12/04/24 1322 Store Stock Associate: Procedure Note Donotuseinterpreter, Image - 12/04/2024 [place] [address] XRay Report Signed Patient: Marita Zapata MMR#: [id number] : 1960Acct:[id number] Age/Sex: 63 / FADM Date: 12/04/24 Loc: HO.ED Attending Dr: Ordering Physician: Drew Herrera Date of Service: 12/04/24 Procedure(s): XR chest 1V Accession Number(s): [id number] cc: Drew Herrera; Name,Bobby GRADY Reason for Exam: Pneumonia? Chest pain CLINICAL HISTORY: Pneumonia? Chest pain 1 view chest x-ray Comparison: CR/SR - XR CHEST 2V - 09/15/24 10:39 EDT Findings: There is mild airspace opacity within the right lower lung, similar to the prior study. The left lung is clear. No gross evidence of pleural effusion. Heart size is normal. No acute fracture. IMPRESSION: Mild airspace opacity within the right lower lung, similar to the prior exam. This may represent a chronic area of atelectasis or scarring. Superimposed infiltrate or recurrent infiltrate not excluded. This document has been electronically signed by: Cady Vázquez MD on 12/04/2024 13:22:33 Dictated By: Cady Vázquez MD Signed By: <Electronically signed by Cady Vázquez MD in OV> 12/04/24 1323 DD/ 1322 TD/TT: 12/04/24 1322 Store Stock Associate: [facility] External Provider IMG XR PROCEDURES Edited Result - Final * B Type Natriuretic Peptide (BNP) (12/04/2024 11:49 AM EDT) Pathologist [facility] B Type Natriuretic Peptide 51 <100 pg/mL [facility] 12/04/2024 11:4 9 AM EDT 12/04/2024 11:51 AM EDT [employer] External Data Provider LAB BLOOD ORDERAB LES Final Result [facility] [address] [place] [address] [phone] * High Sensitivity Troponin I (12/04/2024 11:35 AM EDT) Pathologist [facility] TROPONIN I HIGH SENSITIVITY 3.9 <3.5 - 17.0 ng/L [facility] Comment:The Grossman high sens itivity Troponin-I results should beused in conjunction with other diagnostic information suchas ECG, clinical observations and information, and patientsymptoms to aid in the diagnosis of SD. 12/04/2024 11:3 5 AM EDT 12/04/2024 11:51 AM EDT Generic External Data Provider LAB BLOOD ORDERAB LES Final Result Performing Organization Address [facility] Co de Phone Number [facility] [address] [place] [phone] * SARS-CoV-2 RNA, Influenza A/B, and RSV RNA, Ql NAAT (12/04/2024 11:35 AM EDT) Influenza A PCR NEGATIVE Negative [facility] Influenza B PCR NEGATIVE Negative [facility] Resp Syncy Virus RNA Qual PCR NEGATIVE Negative [facility] SARS COV2 PCR NEGATIVE Negative [facility] Comment:All test results mus t [...] use by authorized laboratories.Testing performed on the [employer] GeneXpert utilizingreal-time RT-PCR.All SARS CoV2 and positive influenza A/B results arereported to [facility]. 12/04/2024 11:3 5 AM EDT 12/04/2024 11:51 AM EDT Generic External Data Provider LAB MICROBIOLOGY - GENERAL ORDERABLES Final Result Performing Organization Address [facility] Co de Phone Number [facility] [address] [place] [phone] * (ABNORMAL) CBC auto differential (12/04/2024 11:35 AM EDT) White Blood Count 12.6(H) 4.8 - 10.8 X10*3/uL [facility] Red Blood Count 5.66(H) 4.20 - 5.50 X10*6/uL [facility] Hemoglobin 15.9 12.0 - 16.0 g/dl [facility] Hematocrit 47.6(H) 37.0 - 47.0 % [facility] Mean Corpuscular Volume 84.1 80.0 - 98.0 fL [facility] Mean Corpuscular Hemoglobin 28.1 27.0 - 33.0 pg [facility] Mean Corpuscular HGB Conc 33.4 31.0 - 35.0 g/dl [facility] Red Cell Distribution Width 15.4 11.0 - 16.0 % [facility] Platelet Count 219 160 - 400 X10*3/uL [facility] Mean Platelet Volume 10.9 9.4 - 12.3 fL [facility] Neutrophils Percent Auto 53.4 45 - 73 % [facility] Imm Gran Pct Auto 0.4 0.0 - 0.4 % [facility] Lymphocytes Percent Auto 33.2 20 - 40 % [facility] Monocytes Percent Auto 8.6 2 - 11 % [facility] Eosinophils Percent Auto 3.4 0 - 4 % [facility] Basophils Percent Auto 1.0 0 - 2 % [facility] NRBC Pct Auto 0.0 0.0 - 0.2 /100WBC [facility] Neutrophils Absolute Auto 6.7 2.0 - 8.3 x10*3/uL [facility] Imm Gran Abs Auto 0.05(H) 0.00 - 0.03 X10*3/uL [facility] Lymphocytes Absolute Auto 4.2 1.2 - 4.9 X10*3/uL [facility] Monocytes Absolute Auto 1.1 0.1 - 1.2 X10*3/uL [facility] Eosinophils Absolute Auto 0.4 0.0 - 0.4 X10*3/uL [facility] Basophils Absolute Auto 0.1 0.0 - 0.2 X10*3/uL [facility] NRBC Abs Auto 0.000 0.0 - 0.012 X10*3/uL [facility] 12/04/2024 11:3 5 AM EDT 12/04/2024 11:51 AM EDT Generic External Data Provider LAB BLOOD ORDERAB LES Final Result Performing Organization Address [facility] Co de Phone Number [facility] [address] [place] [phone] * Partial Thromboplastin Time, Activated (APTT) (12/04/2024 11:35 AM EDT) Partial Thromboplastin Time 27.7 26.7 - 34.1 SEC [facility] 12/04/2024 11:3 5 AM EDT 12/04/2024 11:51 AM EDT Generic External Data Provider LAB BLOOD ORDERAB LES Final Result Performing Organization Address [facility] Phone Number [facility] [address] [place] [phone] * (ABNORMAL) Prothrombin Time-INR (12/04/2024 11:35 AM EDT) Prothrombin Time 9.7(L) 10.9 - 12.4 SEC [facility] INTERNATIONAL NORM RATIO 0.8(L) 0.9 - 1.1 [facility] Comment:INTERNATIONAL NORMAL IZED RATIO (INR) REFERENCE RANGES Reference RangeFor patients not on anticoagulant therapy: 0.9 - 1.1INR ranges for oral anticoagulanttherapy:For prevention and treatment of venous thrombosis and pulmonary embolism: 2.0 - 3.0For acute myocardial infarction with aspirin therapy: 2.0 - 3.0For acute myocardial infarction without aspirin therapy: 3.0 - 4.0For patients with mechanical prosthetic heart valves: 2.5 - 3.5 12/04/2024 11:3 5 AM EDT 12/04/2024 11:51 AM EDT Generic External Data Provider LAB BLOOD ORDERAB LES Final Result Performing Organization Address [facility] Co de Phone Number [facility] [address] [place] [phone] * Magnesium (12/04/2024 11:35 AM EDT) Magnesium 2.0 1.6 - 2.6 mg/dL [facility] 12/04/2024 11:3 5 AM EDT 12/04/2024 11:51 AM EDT us Generic External Data Provider LAB BLOOD ORDERAB LES Final Result [facility] [address] [place] [phone] [phone] * (ABNORMAL) Comprehensive Metabolic Panel (12/04/2024 11:35 AM EDT) Sodium 146(H) 135 - 145 mmol/L [facility] Potassium 3.5 3.3 - 5.1 mmol/L [facility] Chloride 113(H) 96 - 108 mmol/L [facility] Carbon Dioxide 22 22 - 29 mmol/L [facility] Anion Gap 15 12 - 20 [facility] Urea Nitrogen (BUN) 14 9 - 16 mg/dL [facility] Creatinine, Serum 0.78 0.5 - 1.4 mg/dL [facility] Creatinine Clr Calc Pharmacy 65.5 [facility] Comment:Provided height and weight: 165.1 cm,65.771 kg.eGFR (calculated from the MDRD study equation) and eCrCl(calculated from the Cockcroft-Gault equation) are based ondifferent parameters and may not yield comparable results.If eCrCl result is absurd, please check patient'sheight/weight. Estimated Glomerular Filt Rate >60 [facility] Comment:Chronic Kidney Disea se: Estimated GFR < 60 mL/min/1.40d8Yvxjex Kidney Disease: Estimated GFR < 15 mL/min/1.73m2 Glucose 131(H) 60 - 115 mg/dL [facility] Calcium 8.9 8.4 - 10.2 mg/dL [facility] Bilirubin, Total 0.4 0.0 - 1.0 mg/dL [facility] Aspartate Amino Transferase 21 5 - 31 U/L [facility] Alanine Aminotransferase 21 0 - 31 U/L [facility] Total Protein 7.0 6.5 - 8.0 g/dL [facility] Albumin Level 4.2 3.5 - 5.0 g/dL [facility] Alkaline Phosphatase 78 39 - 117 U/L [facility] 12/04/2024 11:3 5 AM EDT 12/04/2024 11:51 AM EDT us Generic External Data Provider LAB BLOOD ORDERAB LES Final Result Performing Organization Address City/State/[facility] Co de Phone Number [facility] [address] [place] [address] [phone] * CT Chest w/o Contrast (11/19/2024 7:06 PM EDT) Anatomical Region Laterality Modality Body, Chest Computed Tomogra phy 11/19/2024 7:06 PM EDT Narrative 11/19/2024 7:07 PM EDT [place] [address] CT Scan Report Signed Patient: Marita Zapata MR#: [id number] : 1960 Acct:[id number] Age/Sex: 63 / F ADM Date: 11/18/24 Loc: HO.CT Attending Dr: Fidel White MD Ordering Physician: Fidel White MD Date of Service: 11/18/24 Procedure(s): CT chest wo IV con Accession Number(s): [id number] cc: Bobby David MD; Fidel White MD Report Number: [id number]: Total DLP = 160.00 mGy-cm CLINICAL HISTORY: [...] in OV> 11/19/241906 DD/ 05 TD/TT: 11/19/241905 Store Stock Associate: Procedure Note Donotuseinterpreter, Image - 11/19/[address] [place] [address] [address] Scan Report Signed Patient: Marita Zapata [facility]#: [id number] : 1960Acct:[id number] Age/Sex: 63 / FADM Date: 11/18/24 Loc: HO.CT Attending Dr: Fidel White MD Ordering Physician: Fidel White MD Date of Service: 11/18/24 Procedure(s): CT chest wo IV con Accession Number(s): [id number] cc: Frankie,Bobby GRADY; Fidel White MD Report Number: [id number]: Total DLP = 160.00 mGy-cm CLINICAL HISTORY: [...] MD on 11/19/2024 19:06:50 Dictated By: Nikko eKenan MD Signed By: <Electronically signed by Nikko Keenan MD in OV> 11/19/241906 DD/ 05 TD/TT: 11/19/241905 Store Stock Associate: [facility] External Provider IMG CT PROCEDURES Final Result * (ABNORMAL) POCT HGB A1C (11/02/2024 9:46 AM EDT) Hemoglobin A1C 8.2(A) 4.0 - 5.7 % QC Media Lot # [id number] Lot# Expiration Date Blood 11/02/2024 9:46 AM EDT Bobby David MD POINT OF CARE TEST ENTER/EDIT OR DERABLES Final Result * POCT Glucose (11/02/2024 9:44 AM EDT) Glucose Blood, POC 182 60 - 200 mg/dL QC Media Lot # [id number] Lot# Expiration Date Blood Capillary blood specimen / Unknown 11/02/2024 9:44 AM EDT Bobby David MD POINT OF CARE TEST ENTER/EDIT OR DERABLES Final Result * XR Chest 2 Views (09/16/2024 10:24 AM EDT) Anatomical Region Laterality Modality Chest Radiographic Ludivina ging 09/16/2024 10:2 4 AM EDT Narrative 09/16/2024 10:25 AM EDT [place] [address] XRay Report Signed Patient: Marita Zapata MR#: [id number] : 1960 Acct:[id number] Age/Sex: 63 / F ADM Date: 09/15/24 Loc: ANGELA Attending Dr: Fidel White MD Ordering Physician: Fidel White MD Date of Service: 09/15/24 Procedure(s): XR chest 2V Accession Number(s): [id number] cc: Bobby David MD; Fidel White MD [...] 09/16/24 1024 DD/ 1024 TD/TT: 09/16/24 1024 Store Stock Associate: Procedure Note Donotuseinterpreter, Image - 09/16/[address] [address] XRay Report Signed Patient: Marita Zapata MMR#: [id number] : 1960Acct:[id number] Age/Sex: 63 / FADM Date: 09/15/24 Loc: HO.XRAY Attending Dr: Fidel White MD Ordering Physician: Fidel White MD Date of Service: 09/15/24 Procedure(s): XR chest 2V Accession Number(s): [id number] cc: Name,Bobby GRADY; Fidel White MD CLINICAL [...] 09/16/24 1024 DD/ 1024 TD/TT: 09/16/24 1024 Store Stock Associate: [facility] External Provider IMG XR PROCEDURES Final Result * (ABNORMAL) Albumin, Random Urine W/Creatinine (12/29/2023 11:20 AM EDT) Creatinine, Urine 157.96 mg/dL [facility] Microalbumin Urine 47.0 mg/L [facility] Microalbum Creatinine Ratio Ur 29.7(H) <30 ug/mg cr [facility] Comment:Albumin/Creatinine R atio Reference Ranges: Normal: < 30 ug/mg creatinine Microalbuminuria: 30 - 300 ug/mg creatinineClinical Albuminuria: > 300 ug/mg creatinine Urine (Urine, Random) 12/29/2023 11:20 AM EDT 12/29/2023 1:01 PM EDT us Bobby David MD LAB URINE ORDERABLES Final Resul t Performing Organization Address [facility] Co de Phone Number [facility] [address] [place] [address] [phone] * (ABNORMAL) Lipid Panel, Standard (12/29/2023 11:17 AM EDT) Triglycerides 172(H) <150 mg/dL [facility] Comment:Desirable Triglyceri de: less than 150 mg/dLBorderline High Triglyceride 150-199 mg/dLHigh Triglyceride: 200-499 mg/dLVery High Triglyceride: greater than or equal to 5OO mg/dL Cholesterol 140 <200 mg/dL [facility] Comment:Desirable Cholestero l: less than 200 mg/dLBorderline High Cholesterol: 200-239 mg/dLHigh Cholesterol: greater than 239 mg/dL LDL Cholesterol Calculated 61 <100 mg/dL [facility] Comment:Desirable LDL: less than 100 mg/dLNear Optimal/Above Optimal LDL: 110- 129 mg/dLBorderline High LDL: 130-159 mg/dLHigh LDL: 160-189 mg/dLVery High LDL: greater than or equal to 190 mg/dL HDL Cholesterol 45 >40 mg/dL [facility] Comment:Desirable HDL: great er than 40 mg/dL Note: This HDL assay may give artificially low results in patients with liver disease. Blood Venous blood specimen / Unknown 12/29/2023 11:17 AM EDT 12/29/2023 1:03 PM EDT us Bobby David MD LAB BLOOD ORDERABLES Final Resul t Performing Organization Address [facility]/ZIP Co de Phone Number [facility] [address] [place] [address] [phone] * (ABNORMAL) Hm Colonoscopy (07/16/2022) Colonoscopy [...] Procedure: Mammography Report 1 us Bobby Name IMG BI PROCEDURES Final Result * Hm Pap Smear (02/27/2021 10:30 AM EST) HM Pap smear Perfomed Historical Provider [facility] Final Result * THINPREP TIS PAP AND HPV mRNA E6/E7 REFLEX HPV 16,18/45 (02/27/2021 10:24 AM EST) Clinical Information: Postmenopausal [facility] COMMENT SEE COMMENT [facility] ON [...] technology. [facility] Office Messenger Helper: SEE COMMENT [facility] Comment: CULP, CT(ASCP) CT screening location: [address] [address] HPV nRNA E6/E7 Not Detected Not Detected [facility] Comment: Methodology: Solid Waste Collection Worker-Mediated Amplification This assay detects E6/E7 viral messenger RNA (mRNA) from 14 high-risk HPV types (16,18,31,33,35,39,45,51,52,56,58,59,66,68). The analytical performance characteristics of this assay have been determined by [employer]. The modifications have not been cleared or approved by the FDA. This assay has been validated pursuant to the CLIA regulations and is used for clinical purposes. For additional information, please refer to http://education.Company Cub[employer]/faq/ZKZ904j8 (This link if provided for information/ educational [...] Final Result [facility] [address] [place] [address], from Last 3 Months or Most Recently Relevant to Health Maintenance Insurance [facility] ONE CARE < [address] [id number] Care Teams Analytical Lab Technician Relationship Specialty Start Date End Date Name, MD Bobby [address] [place] [phone] PCP - General Family Medicine 06/01/15 Eloina 05/13/24
--- OUTSIDE RECORDS SUMMARY | 2024-12-12 15:34 | XMS_ITS | Encounter Summary ---
Author Organization [employer] Address [address] [place] [address] 7[address] [place] [address] Care Team Providers Care Payroll Services Analyst Name Role Phone Name, Bobby GRADY Primary Care Provider [phone] Inga Magaña PharmD Unavailable Encounter Details Date Type Department Care Team (Late st Contact Info) Description 03/05/2022 Telephone [facility] MEDICINE [address] [place] [address] Monisha Linton CNM [address] [place] [address] Social History Tobacco Use Types Packs/Day Years [...] [facility] MEDICINE [address] [place] [address] Name, MD Bobby [address] [place] [address] 02/10/2025 9:30 AM EST Telemedicine [facility] MEDICINE [address] [place] [address] [phone] Skye Melton, HODA 03/14/2025 10:00 AM EST Office Visit [facility] OPTOMETRY [address] [place], [place] [phone] Abbey Deng, OD [address] [place] [address] documented as of this encounter Visit Diagnoses Not on filedocumented in this encounter Care Teams Payroll Services Analyst Relationship Specialty Start Date End Date Name, MD Bobby [address] [place] [address] PCP - General Family Medicine 06/01/15 Inga Magaña PharmD [address] [place] [address] [phone] Pharmacist Internal Medicine 01/07/23 09/29/23 Eloina 05/13/24 documented as of this encounter
--- OUTSIDE RECORDS SUMMARY | 2024-12-12 15:34 | XMS_ITS | Encounter Summary ---
Author Organization [employer] Address [address] [place] [address] 7t [place] [address] Care Team Providers Care Organizational Development Director Name Role Phone Name, Bobby GRADY Primary Care Provider Inga Magaña PharmD Unavailable [phone] Reason for Visit * Reason Comments Med Refill Encounter Details Date Type Department Care Team (Late st Contact Info) Description 11/18/2022 Refill [facility] MED & PEDS [address] [place], [place] [phone] Name, MD Bobby [address] [place] [address] 624[address] Type 2 diabetes mellitus without complications (CMS/[facility]ER[facility]) Social History Tobacco Use Types Packs/Day Years [...] Description 01/25/2025 9:30 AM EDT Office Visit [facility] [address] [place] [address] Name, MD Bobby [address] [place] [address] 02/10/2025 9:30 AM EST Telemedicine [facility] [address] [place] [address] Skye Melton, RN 03/14/2025 10:00 AM EST Office Visit [facility] OPTOMETRY [address] [place] [address] Abbey Deng, OD [address] [place] [address] documented as of this encounter Visit Diagnoses Diagnosis Type 2 diabetes mellitus without complications (CMS/HCC) documented in this encounter Additional Health Concerns Assessment Noted Time PHQ-9 Depression Total Score: 0 03/11/20 11:47 AM EST documented as of this encounter Care Teams Organizational Development Director Relationship Specialty Start Date End Date Name, MD Bobby [address] [place] [address] PCP - General Family Medicine 06/01/15 Inga Magaña PharmD [address] [place] [address] Pharmacist Internal Medicine 01/07/23 09/29/23 Eloina 05/13/24 documented as of this encounter
--- OUTSIDE RECORDS SUMMARY | 2024-12-12 15:34 | XMS_ITS | Encounter Summary ---
Author Organization [employer] Address [address] [place] [address] 7 [place] [address] Care Team Providers Care Conservation Science Officer Name Role Phone Name, Bobby GRADY Primary Care Provider [phone] Inga Magaña PharmD Unavailable [phone] Reason for Visit * Reason Onset Date Comments Prior Authorization 01/21/2023 HumaLOG KWIK PEN 100 UNIT/ML injection Encounter Details Date Type Department Care Team ([facility] st Contact Info) Description 01/21/2023 Telephone [facility] MEDICINE [address] [place], [place] [phone] Name, MD Bobby [address] [place] [address] Prior Authorization (HumaLOG KWIKPEN 100 UNIT/ML injection) [...] encounter Miscellaneous Notes * Telephone Encounter - Sahhrzad White - 01/27/2023 11:44 AM EDT PA [...] Description 01/25/2025 9:30 AM EDT Office Visit [facility] MEDICINE [address] [place] [address] Name, MD Bobby [address] [place] [address] 02/10/2025 9:30 AM EST Telemedicine [facility] MEDICINE [address] [place] [address] Skye Melton RN 03/14/2025 10:00 AM EST Office Visit [facility] OPTOMETRY [address] [place] [address] Abbey Deng, OD [address] [place] [address] documented as of this encounter Goals Goal Patient Goal Type Associated Problems Recent Progress Patient-Stated? Author Smoking cessation General No Inga Magaña, PharmD documented as of this encounter Visit Diagnoses Not on filedocumented in this encounter Additional Health Concerns Assessment Noted Time PHQ-9 Depression Total Score: 0 03/11/20 22 11:47 AM EST documented as of this encounter Care Teams Conservation Science Officer Relationship Specialty Start Date End Date Name, MD Bobby [address] [place] [address] PCP - General Family Medicine 06/01/15 Inga Magaña, MiltonD [address] [place] [address] Pharmacist Internal Medicine 01/07/23 09/29/23 Eloina 05/13/24 documented as of this encounter
== END 2024-12-12 11:57 | disposition home or self-care (01) ==
LOC: HO.PMC 11:24
PROVIDERS: PCP Internal Medicine Geriatric Medicine; Visit Provider Internal Medicine
DX: M54.16 Radiculopathy, lumbar region (principal)
CPT/HCPCS: 99204

== ENCOUNTER → 2024-12-12 11:23 | Outpatient (BNVA) | payer OTHER, SELFPAY | PROVIDERS: PCP Internal Medicine Geriatric Medicine; Visit Provider Internal Medicine | DX: M54.16 Radiculopathy, lumbar region (principal); J44.9 Chronic obstructive pulmonary disease, unspecified; M81.0 Age-related osteoporosis without current pathological fracture; I25.10 Atherosclerotic heart disease of native coronary artery without angina pectoris | CPT/HCPCS: 99202 ==

== ENCOUNTER 2024-12-23 12:26 | Outpatient (REF) | payer OTHER, SELFPAY ==
--- NOTE | ~2024-12-23 | MM_ITS ---
EXAMINATION: DXA BONE DENSITY AXIAL HISTORY: osteopenia, chronic prednisone use TECHNIQUE: Access[employer] Dual energy absorptiometry (DEXA) of the lumbar spine, total left hip, and femoral neck was performed. COMPARISON: Comparison is made with the prior examination dated 04/24/2021. FINDINGS: The bone mineral density of the lumbar spine is 1.105 g/cm2, corresponding to a T-score of -0.6, and a Z-score of 0.7. This is indicative of normal bone mineral density. This represents a BMD change of -0.5% compared to the prior exam. This is not statistically significant. The bone mineral density of the left total hip is 0.758 g/cm2, corresponding to a T-score of -2.0, and a Z-score of -1.0. This is indicative of osteopenia. This represents a BMD change of -6.2% compared to the prior exam. This is statistically significant. The bone mineral density of the left femoral neck is 0.735 g/cm2, corresponding to a T-score of -2.2, and a Z-score of -0.9. This is indicative of osteopenia. This represents a BMD change of -5.0% compared to the prior exam. FRACTURE RISK: The FRAX index suggests a ten year probability of major osteoporotic fracture of 30.4%, and of hip fracture 9.8%. MM/XR DEXA axial skeleton IMPRESSION: Based on bone mineral density, and according to World Health Organization (WHO) criteria, the diagnosis is consistent with osteopenia. Statistically, 68% of repeat scans fall within 1 SD (+/- 0.010 g/cm2 for AP spine L1-L4) and 1 SD (+/- 0.012 g/cm2 for femur total) FRAX is a trademark of the [employer]'s [place] [facility] Metabolic Bone Disease, a World Health Organization (WHO) Collaborating Center. Electronically signed by: Brooks Daly MD 12/23/2024 01:20 PM EDT
--- NOTE | ~2024-12-23 | MM_ITS ---
EXAMINATION: MM SCREENING DIGITAL BREAST TOMOSYNTHESIS, BILATERAL CLINICAL INFORMATION: Screening. Asymptomatic. COMPARISON: Mammography: Comparison is made with available priors TECHNIQUE: Digital breast mammography with tomosynthesis is performed in both the craniocaudal and mediolateral oblique views along with computer-aided detection (CAD). FINDINGS: The breasts are heterogeneously dense, which may obscure small masses. Status post right excisional biopsy changes are stable. There are no significant masses, abnormal calcifications, or other abnormalities. MM/MM tomosynthesis screening BI IMPRESSION: No mammographic evidence of malignancy. ASSESSMENT: BI-RADS Category 2: Benign RECOMMENDATION: Routine annual mammography screening. 1 year F/U This examination should not preclude the clinical evaluation of a suspicious palpable abnormality. This patient's information was entered into a reminder system with a target due date for their next mammogram. Electronically signed by: Leonor Whitlock DO 12/27/2024 09:50 AM EDT
--- OUTSIDE RECORDS SUMMARY | 2024-12-23 14:01 | XMS_ITS | Encounter Summary ---
Author Organization [employer] Address [address] [place] [address] 7t [place] [address] Care Team Providers Care Board Writer Name Role Phone Name, Bobby GRADY Primary Care Provider Inga Magaña PharmD Unavailable Reason for Visit * Reason Comments Med Refill Encounter Details Date Type Department Care Team (Late st Contact Info) Description 04/07/2022 Refill [facility] MEDICINE 230 [facility] [place] [address] Sherly Pichardo, CONVERTING TECHNICIAN 505 [place] [address] Chronic low back pain with sciatica, sciatica [...] Description 01/25/2025 9:30 AM EDT Office Visit [facility] MEDICINE [address] [place] [address] Name, MD Bobby Lamont [facility] [address] 02/10/2025 9:30 AM EST Telemedicine [facility] MEDICINE 230 [place] [address] Skye Melton, HODA 03/14/2025 10:00 AM EST Office Visit [facility] OPTOMETRY [address] [place] [address] Abbey Deng, KIKA [address] [place] [address] documented as of this encounter Visit Diagnoses Diagnosis Chronic low back pain with sciatica, sciatica laterality unspecified, unspecified back pain laterality documented in this encounter Additional Health Concerns Assessment Noted Time PHQ-9 Depression Total Score: 0 03/11/20 22 11:47 AM EST documented as of this encounter Care Teams Board Writer Relationship Specialty Start Date End Date Name, [place] [address] PCP - General Family Medicine 06/01/15 Inga Magaña PharmD [address] [place] [address] Pharmacist Internal Medicine 01/07/23 09/29/23 Eloina 05/13/24 documented as of this encounter
--- OUTSIDE RECORDS SUMMARY | 2024-12-23 14:01 | XMS_ITS | Encounter Summary ---
Author Organization [employer] Address [address] [facility] 7t [place] [address] Care Team Providers Care Fire Warden Name Role Phone Name, Bobby GRADY Primary Care Provider Inga Magaña PharmD Unavailable [phone] Reason for Visit * Reason Onset Date Comments Med Refill 05/26/2023 Encounter Details Date Type Department Care Team (Late st Contact Info) Description 05/26/2023 Telephone [facility] MEDICINE 230 [place] [address] Name, MD Bobby [address] [place] [address] Med Refill Social History Tobacco Use Types [...] 7.5-325 MG tablet To be sent to: [facility] [place], [place] - [address] [place] [address] documented in this encounter Plan of Treatment Upcoming Encounters Date Type Department Care Team ([facility] st Contact Info) Description 01/25/2025 9:30 AM EDT Office Visit [facility] MEDICINE [address] [place] [address] Name, MD Bobby [address] [place] [address] 02/10/2025 9:30 AM EST Telemedicine [facility] MEDICINE [address] [place] [address] Skye Melton, RN 03/14/2025 10:00 AM EST Office Visit [facility] OPTOMETRY [address] [place] [address] Abbey Deng, KIKA [address] [place] [address] documented as of this encounter Goals Goal Patient Goal Type Associated Problems Recent Progress Patient-Stated? Author Smoking cessation General No Inga Magaña, PharmD documented as of this encounter Visit Diagnoses Not on filedocumented in this encounter Additional Health Concerns Assessment Noted Time PHQ-9 Depression Total Score: 0 03/11/20 22 11:47 AM EST documented as of this encounter Care Teams Fire Warden Relationship Specialty Start Date End Date Name, MD Bobby [address] [place] [address] PCP - General Family Medicine 06/01/15 Inga Magaña, PharmD [address] [place] [address] Pharmacist Internal Medicine 01/07/23 09/29/23 Eloina 05/13/24 documented as of this encounter
--- OUTSIDE RECORDS SUMMARY | 2024-12-23 14:01 | XMS_ITS | Encounter Summary ---
Author Organization [employer] Address [address] [place] [address] [place], [place] [address] Care Team Providers Care Product Strategy Director Name Role Phone Bobby David MD Primary Care Provider [phone] Inga Magaña PharmD Unavailable [phone] Reason for Visit * Reason Onset Date Comments Referral 04/23/2022 Encounter Details Date Type Department Care Team (Late st Contact Info) Description 04/23/2022 Telephone [facility] MEDICINE 230 [place] [address] NameBobby MD 230 [place] [address] Referral Social History Tobacco Use Types Packs/Day [...] Pt wants referral to see Gastroenterology in [facility], as pt has hx of colon cancer and has been waiting 10 years for colonoscopy. Pt stated June at [facility] has an apptset up for pt on May 13 and needs referral placed before then. Pt verbalized understanding and denied having any further questions or concerns at this time. * Telephone Encounter - Octavio Holliday - 04/23/2022 11:46 AM EST Tc from pt requesting an referral to see an gastroenterology at [facility] Please contact pt at [phone] documented in this encounter Plan of Treatment Upcoming Encounters Date Type Department Care Team (Late st Contact Info) Description 01/25/2025 9:30 AM EDT Office Visit [facility] MEDICINE [address] [place] [address] Name, MD Bobby [address] [place] [address] 02/10/2025 9:30 AM EST Telemedicine [facility] MEDICINE [address] [place] [address] Skye Melton RN 03/14/2025 10:00 AM EST Office Visit [facility] OPTOMETRY 267 [place] [address] Abbey Deng, OD [address] [place] [address] documented as of this encounter Visit Diagnoses Diagnosis History of colon polyps- Primary Family history of colon cancer Family history of malignant neoplasm of gastrointestinal tract documented in this encounter Additional Health Concerns Assessment Noted Time PHQ-9 Depression Total Score: 0 03/11/20 11:47 AM EST documented as of this encounter Care Teams Product Strategy Director Relationship Specialty Start Date End Date Name, MD Bobby [address] [place] [address] [phone] PCP - General Family Medicine 06/01/15 Inga Magaña, MiltonD [address] [place] [address] [place] [phone] Pharmacist Internal Medicine 01/07/23 09/29/23 Eloina 05/13/24 documented as of this encounter
--- OUTSIDE RECORDS SUMMARY | 2024-12-23 14:01 | XMS_ITS | Encounter Summary ---
Author Organization [employer] Address [address] [facility] 7t [place] [address] Care Team Providers Care Door To Door Sales Representative Name Role Phone Name, Bobby GRADY Primary Care Provider Reason for Visit * Reason Comments Med Refill Encounter Details Date Type Department Care Team ([facility] Contact Info) Description 12/19/2024 Refill [facility] MED & PEDS [address] [place], [place] [phone] Name, MD Bobby [address] [place] [address] Chronic low back pain with sciatica, sciatica [...] Telephone Encounter - Patricia Campos RN - 12/19/2024 3:21 PM EDT [employer] checked by appeals writer on 12/19/24. Pt picked up a 28 day supply of oxycodone- acetaminophen 7.5mg-325 mg tablet on 11/21/24. Pt due for refill today. Medication pended to PCP for review. Message forwarded to PCP to review and advise. documented in this encounter Plan of Treatment Upcoming Encounters Date Type Department Care Team (Late st Contact Info) Description 01/25/2025 9:30 AM EDT Office Visit [facility] MEDICINE [address] [place] [address] [phone] Name, MD Bobby [address] [place] [address] 02/10/2025 9:30 AM EST Telemedicine [facility] MEDICINE 230 [place] [address] Skye Melton RN 03/14/2025 10:00 AM EST Office Visit [facility] OPTOMETRY [address] [place] [address] Abbey Deng, OD [address] [place] [address] documented as of this encounter Goals Goal Patient Goal Type Associated Problems Recent Progress Patient-Stated? Author Smoking cessation General No Inga Magaña, MiltonD documented as of this encounter Visit Diagnoses Diagnosis Chronic low back pain with sciatica, sciatica laterality unspecified, unspecified back pain laterality documented in this encounter Additional Health Concerns Assessment Noted Time PHQ-9 Depression Total Score: 5 11/03/19 25 9:53 AM EDT documented as of this encounter Care Teams Door To Door Sales Representative Relationship Specialty Start Date End Date Name, MD Bobby [address] [place] [address] PCP - General Family Medicine 06/01/15 Eloina 05/13/24 documented as of this encounter
--- OUTSIDE RECORDS SUMMARY | 2024-12-23 14:01 | XMS_ITS | Encounter Summary ---
Author Organization [employer] Address [address] [place] [address] Care Team Providers Care Court Operations Clerk Name Role Phone Name, Bobby GRADY Primary Care Provider [phone] Encounter Details Date Type Department Care Team (Late st Contact Info) Description 05/08/[address] [facility] - Main Lab [address] [place] [address] Yared Weaver MD [address] [place] [address], [phone] Hypothyroidism, unspecified Social History Tobacco Use [...] LAB CHEMISTRY METHOD 05/09/2024 1:03 PM EST [facility] Blood Venous blood specimen / Unknown Venipuncture / Unknown 05/09/2024 5:33 AM EST 05/09/2024 11:27 AM EST us Yared Weaver MD LAB BLOOD ORDERABLES Final Resul t [facility] LAB [address] [place] [address], documented in this encounter Visit Diagnoses Diagnosis Hypothyroidism, unspecified documented in this encounter Care Teams Court Operations Clerk Relationship Specialty Start Date End Date Name, MD Bobby [address] [place], [place] PCP - General Internal Medicine 04/01/18 documented as of this encounter
--- OUTSIDE RECORDS SUMMARY | 2024-12-23 14:01 | XMS_ITS | Encounter Summary ---
Author Organization [employer] Address [address] [place] [address] [place], [place] [address] Care Team Providers Care Lumber Planer Name Role Phone Name, Bobby GRADY Primary Care Provider [phone] Inga Magaña PharmD Unavailable Reason for Referral * Imaging (Routine) - Closed Specialty Diagnoses / Procedures Referred By Contac t Referred To Contact Diagnoses Other ovarian cyst, right side Procedures US Pelvis Transvaginal Monisha Linton CNM [address] [place] [address] Phone: tel: fax: [facility] MRI and CT Scan [address] [place] [address] Phone: tel: fax: Referral ID Status Reason Start Date Expiration Date Visits Re quested Visits Authorized [id number] Closed 04/01/2022 09/28/2022 1 1 Encounter Details Date Type Department Care Team ([facility] st Contact Info) Description 04/01/2022 Orders Only [facility] MEDICINE [address] [place], [place] [phone] Monisha Linton CNM [address] [place], [place] [phone] Other ovarian cyst, right side (Primary Dx) [...] 01/25/2025 9:30 AM EDT Office Visit [facility] MEDICINE [address] [place] [address] Name, MD Bobby [address] [place] [address] 02/10/2025 9:30 AM EST Telemedicine [facility] MEDICINE [address] [place] [address] Skye Melton, HODA 03/14/2025 10:00 AM EST Office Visit [facility] OPTOMETRY [address] [place] [address] Abbey Deng, OD [address] [place] [address] Scheduled Orders Name Type Priority Associated Diagnoses [...] documented as of this encounter Care Teams Lumber Planer Relationship Specialty Start Date End Date Name, MD Bobby [address] [place] [address] PCP - General Family Medicine 06/01/15 Inga Magaña, MiltonD [address] [place] [address] Pharmacist Internal Medicine 01/07/23 09/29/23 Eloina 05/13/24 documented as of this encounter
--- OUTSIDE RECORDS SUMMARY | 2024-12-23 14:01 | XMS_ITS | Clinical Summary ---
Author Organization [address] Address [address] [place] [phone] Phone Care Team Providers Care Tenant Coordinator Name Role Phone Name, Bobby GRADY Primary Care Provider [phone] Surgical History Surgery Date Site/Laterality Comments CHOLECYSTECTOMY PROCEDURE: VT CHOLECYSTECTOMY OTHER SURGICAL HISTORY PROCEDURE: HISTORY OTHER; COMMENT: Cardiac stent KIDNEY STONE SURGERY PROCEDURE: VT NEPHROLITHOTOMY REMOVAL CALCULUS BREAST LUMPECTOMY Right PROCEDURE: HISTORICAL BREAST LUMPECTOMY; COMMENT: benign Medical History Medical History Date Comments Coronary atherosclerosis of unspecified type of vessel, afognak or graft 07/07/2011 DX:Coronary atherosclerosis of unspecified type of vessel, afognak or graft Hypertension 07/07/2011 DX:Hypertension Historical Medical DX 07/07/2011 DX:Hyperli pidemia LDL goal < 70 DM2 (diabetes mellitus, type 2) ([facility] V24, [facility]/HCC V28) 07/07/2011 DX:DM2 (diabetes mellitus, type 2) ([facility]) Tobacco abuse 07/07/2011 DX:Tobacco abuse Allergy-induced asthma 07/07/2011 DX:Allerg y-induced asthma Family History Medical History Relation Name Comments Breast cancer Aunt 1 maternal aunt, at 60 Breast cancer Aunt 2 paternal aunt, at 60 Other: 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 Aunt 2 Colon cancer Brother at [...] 8:21 AM EST 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 from Last 3 Months or Most Recently Relevant to Health Maintenance Results * (ABNORMAL) Basic metabolic panel (05/12/2024 8:21 AM EST) Sodium 143 133 - 145 mmol/L LAB CHEMISTRY METHOD 05/12/2024 11:22 AM [facility] Potassium 3.6 3.5 - 5.5 mmol/L LAB CHEMISTRY METHOD 05/12/2024 11:22 AM [facility] Chloride 109 96 - 110 mmol/L LAB CHEMISTRY METHOD 05/12/2024 11:22 AM EST [facility] CO2 31 21 - 32 mmol/L LAB CHEMISTRY METHOD 05/12/2024 11:22 AM [facility] Anion Gap 3 3 - 11 LAB CHEMISTRY METHOD 05/12/2024 11:22 AM [facility] Glucose 95 70 - 100 mg/dL LAB CHEMISTRY METHOD 05/12/2024 11:22 AM [facility] BUN 21 5 - 25 mg/dL LAB CHEMISTRY METHOD 05/12/2024 11:22 AM EST [facility] Creatinine 0.80 0.50 - 1.10 mg/dL LAB CHEMISTRY METHOD 05/12/2024 11:22 AM [facility] LAB eGFR 82 >=60 mL/min/1. 73m2 LAB CHEMISTRY METHOD 05/12/2024 11:22 AM EST [facility] Comment:Calculation based on the Chronic Kidney Disease Epidemiology Collaboration (CKD-EPI) equation refit without adjustment for race. BUN/Creatinine Ratio 26.3 LAB CHEMISTRY METHOD 05/12/2024 11:22 AM [facility] Calcium 8.0(L) 8.5 - 10.5 mg/dL LAB CHEMISTRY METHOD 05/12/2024 11:22 AM [facility] LAB Blood Venous blood specimen / Unknown Venipuncture / Unknown 05/12/2024 8:21 AM EST 05/12/2024 10:56 AM EST us Yared Weaver MD LAB BLOOD ORDERABLES Final Resul t [facility] LAB [address] [place] [address], from Last 3 Months or Most Recently Relevant to Health Maintenance Insurance [facility] [employer] Member Subscriber Plan / Payer (Ef fective 2022-Present) Name:Marita Lawrence Relation to Subscriber:Self Name:Marita Lawrence Payer ID:[id number] Group ID:[id number] Type:Not on file Address: [place] [address] [address] [address] Care Teams Tenant Coordinator Relationship Specialty Start Date End Date Name, MD Bobby [address] [place], [place] PCP - General Internal Medicine 04/01/18
--- OUTSIDE RECORDS SUMMARY | 2024-12-23 14:01 | XMS_ITS | Encounter Summary ---
Author Organization [employer] Address [address] [place] [address] 7 [place] [address] Care Team Providers Care Document Control Supervisor Name Role Phone Name, Bobby GRADY Primary Care Provider [phone] Reason for Visit * Reason Onset Date Comments Hospital Follow-up 05/17/2024 Encounter Details Date Type Department Care Team ([facility] st Contact Info) Description 05/17/2024 Telephone [facility] MEDICINE [address] [place] [address] Name, MD Bobby [address] [place] [address] Hospital Follow-up Social History Tobacco Use Types [...] pt requesting a HDF appt. [facility] [place] Date of admission: 04/06/2024 Discharge date: 05/12/2024 Diagnosed: RSV , Influenza A+B , COPD *Send message to [place] Clinical Care Coordinators documented in this encounter Plan of Treatment Upcoming Encounters Date Type Department Care Team (Late st Contact Info) Description 01/25/2025 9:30 AM EDT Office Visit [facility] MEDICINE [address] [place] [address] Name, MD Bobby [address] [place] [address] 02/10/2025 9:30 AM EST Telemedicine [facility] MEDICINE [address] [place] [address] Skye Melton, RN 03/14/2025 10:00 AM EST Office Visit [facility] OPTOMETRY [address] [place] [address] Abbey Deng, OD [address] [place] [address] documented as of this encounter Goals Goal Patient Goal Type Associated Problems Recent Progress Patient-Stated? Author Smoking cessation General Inga Radford, PharmD documented as of this encounter Visit Diagnoses Not on filedocumented in this encounter Additional Health Concerns Assessment Noted Time PHQ-9 Depression Total Score: 0 06/19/19 24 10:09 AM EDT documented as of this encounter Care Teams Document Control Supervisor Relationship Specialty Start Date End Date Name, MD Bobby [address] [place] [address] PCP - General Family Medicine 06/01/15 Eloina 05/13/24 documented as of this encounter
--- OUTSIDE RECORDS SUMMARY | 2024-12-23 14:01 | XMS_ITS | Encounter Summary ---
Author Organization [employer] Address [address] [facility] 7t [place] [address] Care Team Providers Care Station Detective Name Role Phone Name, Bobby GRADY Primary Care Provider [phone] Inga Magaña PharmD Unavailable [phone] Reason for Visit * Reason Comments Med Change Request Encounter Details Date Type Department Care Team ([facility] st Contact Info) Description 06/09/2023 Refill [facility] MEDICINE [address] [place] [address] Name, MD Bobby [address] [place] [address] Social History Tobacco Use Types Packs/Day Years [...] Description 01/25/2025 9:30 AM EDT Office Visit [facility] MEDICINE [address] [place] [address] Name, MD Bobby [address] [place] [address] 02/10/2025 9:30 AM EST Telemedicine [facility] MEDICINE [address] [place] [address] Skye Melton, HODA 03/14/2025 10:00 AM EST Office Visit [facility] OPTOMETRY [address] [place] [address] Abbey Deng, OD [address] [place] [address] documented as of this encounter Goals Goal Patient Goal Type Associated Problems Recent Progress Patient-Stated? Author Smoking cessation General No Inga Magaña, PharmD documented as of this encounter Visit Diagnoses Not on filedocumented in this encounter Additional Health Concerns Assessment Noted Time PHQ-9 Depression Total Score: 0 03/11/20 11:47 AM EST documented as of this encounter Care Teams Station Detective Relationship Specialty Start Date End Date NameBobby MD [address] [place] [address] PCP - General Family Medicine 06/01/15 Inga Magaña, PharmD [address] [place] [address] Pharmacist Internal Medicine 01/07/23 09/29/23 Eloina 05/13/24 documented as of this encounter
--- OUTSIDE RECORDS SUMMARY | 2024-12-23 14:01 | XMS_ITS | Encounter Summary ---
Author Organization [employer] Address [address] [place] [address] Care Team Providers Care Chief Steward/Stewardess Name Role Phone Name, Bobby GRADY Primary Care Provider [phone] Encounter Details Date Type Department Care Team (Latest Contact Info) Description 05/04/2024 Lab Requisition [facility] - Main Lab [address] [place] [address] Yared Weaver MD [address] [place] [address], [phone] Atherosclerotic heart disease of [place] coronary artery without angina pectoris Social History [...] 5:05 AM EST Atherosclerotic heart disease of [place] coronary artery without angina pectoris BASIC METABOLIC PANEL Routine 05/05/2024 5:05 AM EST Atherosclerotic heart disease of [place] coronary artery without angina pectoris documented in this encounter Results * (ABNORMAL) Basic metabolic panel (05/05/2024 5:05 AM EST) Sodium 144 133 - 145 mmol/L LAB CHEMISTRY METHOD 05/05/2024 11:28 AM EST [facility] LAB Potassium [...] t [facility] LAB [address] [place] [address], * (ABNORMAL) Complete blood count (05/05/2024 5:05 AM EST) [facility] WBC 13.8(H) 4.8 - 10.8 K/mcL LAB [...] t [facility] LAB [address] [place] [address], documented in this encounter Visit Diagnoses Diagnosis Atherosclerotic heart disease of [place] coronary artery without angina pectoris documented in this encounter Care Teams Chief Steward/Stewardess Relationship Specialty Start Date End Date Name, MD Bobby [address] [place], [place] PCP - General Internal Medicine 04/01/18 documented as of this encounter
--- OUTSIDE RECORDS SUMMARY | 2024-12-23 14:01 | XMS_ITS | Encounter Summary ---
Author Organization [employer] Address [address] [place] [address] Care Team Providers Care Chart Changer Name Role Phone Name, Bobby GRADY Primary Care Provider [phone] Encounter Details Date Type Department Care Team (Latest Contact Info) Description 05/11/2024 Lab Requisition [facility] - Main Lab [address] [place] [address] Yared Weaver MD [address] [place] [address], [phone] Atherosclerotic heart disease of [place] coronary artery without angina pectoris Social History [...] 8:21 AM EST Atherosclerotic heart disease of [place] coronary artery without angina pectoris BASIC METABOLIC PANEL Routine 05/12/2024 8:21 AM EST Atherosclerotic heart disease of [place] coronary artery without angina pectoris documented in this encounter Results * (ABNORMAL) Basic metabolic panel (05/12/2024 8:21 AM EST) Sodium 143 133 - 145 mmol/L LAB CHEMISTRY METHOD 05/12/2024 11:22 AM EST [facility] LAB Potassium 3.6 3.5 - 5.5 mmol/L LAB CHEMISTRY METHOD 05/12/2024 11:22 AM [facility] LAB Chloride 109 96 - 110 mmol/L LAB CHEMISTRY METHOD 05/12/2024 11:22 AM [facility] LAB CO2 31 21 - 32 mmol/L LAB CHEMISTRY METHOD 05/12/2024 11:22 AM [facility] LAB Anion Gap 3 3 - 11 LAB CHEMISTRY METHOD 05/12/2024 11:22 AM [facility] LAB Glucose 95 70 - 100 mg/dL LAB CHEMISTRY METHOD 05/12/2024 11:22 AM [facility] LAB BUN 21 5 - 25 mg/dL LAB CHEMISTRY METHOD 05/12/2024 11:22 AM [facility] LAB Creatinine 0.80 0.50 - 1.10 mg/dL LAB CHEMISTRY METHOD 05/12/2024 11:22 AM [facility] LAB eGFR 82 >=60 mL/min/1. 73m2 LAB CHEMISTRY METHOD 05/12/2024 11:22 AM [facility] LAB Comment:Calculation based on the Chronic Kidney Disease Epidemiology Collaboration (CKD-EPI) equation refit without adjustment for race. BUN/Creatinine Ratio 26.3 LAB CHEMISTRY METHOD 05/12/2024 11:22 AM [facility] LAB Calcium 8.0(L) 8.5 - 10.5 mg/dL LAB CHEMISTRY METHOD 05/12/2024 11:22 AM [facility] LAB Blood Venous blood specimen / Unknown Venipuncture / Unknown 05/12/2024 8:21 AM EST 05/12/2024 10:56 AM EST us Yared Weaver MD LAB BLOOD ORDERABLES Final Resul t [facility] LAB [address] [place] [address], * (ABNORMAL) Complete blood count (05/12/2024 8:21 AM EST) [facility] WBC 12.5(H) 4.8 - 10.8 K/mcL LAB HEMETOLOGY METHOD 05/12/2024 11:10 AM [facility] LAB RBC 5.10(H) 3.80 - 4.80 M/mcL LAB HEMETOLOGY METHOD 05/12/2024 11:10 AM [facility] LAB Hemoglobin 14.6 11.5 - 16.0 g/dL LAB HEMETOLOGY METHOD 05/12/2024 11:10 AM [facility] LAB Hematocrit 46.7 35.0 - 47.0 % LAB HEMETOLOGY METHOD 05/12/2024 11:10 AM [facility] LAB MCV 91.4 79.0 - 98.0 FL LAB HEMETOLOGY METHOD 05/12/2024 11:10 AM [facility] LAB MCH 28.6 27.0 - 32.0 pcg LAB HEMETOLOGY METHOD 05/12/2024 11:10 AM [facility] LAB MCHC 31.3(L) 32.0 - 37.0 g/dL LAB HEMETOLOGY METHOD 05/12/2024 11:10 AM [facility] LAB RDW 16.3(H) 11.0 - 15.0 % LAB HEMETOLOGY METHOD 05/12/2024 11:10 AM [facility] LAB Platelets 209 130 - 400 K/mcL LAB HEMETOLOGY METHOD 05/12/2024 11:10 AM [facility] LAB MPV 10.7 7.0 - 11.0 FL LAB HEMETOLOGY METHOD 05/12/2024 11:10 AM [facility] LAB NRBC 0.0 <1.0 % LAB HEMETOLOGY METHOD 05/12/2024 11:10 AM [facility] LAB NRBC Absolute 0.00 <0.10 K/mcL LAB HEMETOLOGY METHOD 05/12/2024 11:10 AM EST [facility] LAB Blood Venous blood specimen / Unknown Venipuncture / Unknown 05/12/2024 8:21 AM EST 05/12/2024 10:56 AM EST us Yared Weaver MD LAB BLOOD ORDERABLES Final Resul t [facility] LAB [address] [place] [address], documented in this encounter Visit Diagnoses Diagnosis Atherosclerotic heart disease of [place] coronary artery without angina pectoris documented in this encounter Care Teams Chart Changer Relationship Specialty Start Date End Date Name, MD Bobby 4 [place], [place] PCP - General Internal Medicine 04/01/18 documented as of this encounter
--- OUTSIDE RECORDS SUMMARY | 2024-12-23 14:01 | XMS_ITS | Encounter Summary ---
Author Organization [employer] Address [address] [facility] 7t [place] [address] Care Team Providers Care Plant Wire Chief Name Role Phone Name, Bobby GRADY Primary Care Provider [phone] Inga Magaña PharmD Unavailable [phone] Reason for Visit * Reason Comments Med Refill Encounter Details Date Type Department Care Team ([facility] st Contact Info) Description 04/28/2023 Refill [facility] MEDICINE [address] [place] [address] Name, MD Bobby [address] [place] [address] Social History Tobacco Use Types Packs/Day Years [...] Description 01/25/2025 9:30 AM EDT Office Visit [facility] MEDICINE [address] [place] [address] Name, MD Bobby [address] [place] [address] 02/10/2025 9:30 AM EST Telemedicine [facility] MEDICINE [address] [place] [address] Skye Melton, HODA 03/14/2025 10:00 AM EST Office Visit [facility] OPTOMETRY [address] [place] [address] Abbey Deng, OD [address] [place] [address] documented as of this encounter Goals Goal Patient Goal Type Associated Problems Recent Progress Patient-Stated? Author Smoking cessation General No Inga Magaña, PharmD documented as of this encounter Visit Diagnoses Not on filedocumented in this encounter Additional Health Concerns Assessment Noted Time PHQ-9 Depression Total Score: 0 03/11/20 11:47 AM EST documented as of this encounter Care Teams Plant Wire Chief Relationship Specialty Start Date End Date NameBobby MD [address] [place] [address] PCP - General Family Medicine 06/01/15 Inga Magaña, PharmD [address] [place] [address] Pharmacist Internal Medicine 01/07/23 09/29/23 Eloina 05/13/24 documented as of this encounter
--- OUTSIDE RECORDS SUMMARY | 2024-12-23 14:02 | XMS_ITS | Encounter Summary ---
Author Organization [employer] Address [address] [place] [address] 7 [place] [address] Care Team Providers Care Director Corporate Communications Name Role Phone Name, Bobby GRADY Primary Care Provider [phone] Inga Magaña PharmD Unavailable [phone] Reason for Visit * Reason Onset Date Comments Prior Authorization 01/21/2023 HumaLOG KWIK PEN 100 UNIT/ML injection Encounter Details Date Type Department Care Team ([facility] st Contact Info) Description 01/21/2023 Telephone [facility] MEDICINE [address] [place], [place] [phone] Name, MD Bobby [address] [place] [address] Prior Authorization (HumaLOG KWIKPEN 100 UNIT/ML injection) [...] Description 01/25/2025 9:30 AM EDT Office Visit [facility] MEDICINE [address] [place] [address] Name, MD Bobby [address] [place] [address] 02/10/2025 9:30 AM EST Telemedicine [facility] MEDICINE [address] [place] [phone] Skye Melton RN 03/14/2025 10:00 AM EST Office Visit [facility] OPTOMETRY [address] [place] [address] Abbey Deng, OD [address] [place] [address] documented as of this encounter Goals Goal Patient Goal Type Associated Problems Recent Progress Patient-Stated? Author Smoking cessation General No Inga Magaña, PharmD documented as of this encounter Visit Diagnoses Not on filedocumented in this encounter Additional Health Concerns Assessment Noted Time PHQ-9 Depression Total Score: 0 03/11/20 22 11:47 AM EST documented as of this encounter Care Teams Director Corporate Communications Relationship Specialty Start Date End Date Name, MD Bobby 230 [place] [address] PCP - General Family Medicine 06/01/15 Inga Magaña, MiltonD [address] [place] [address] Pharmacist Internal Medicine 01/07/23 09/29/23 Eloina 05/13/24 documented as of this encounter
--- OUTSIDE RECORDS SUMMARY | 2024-12-23 14:02 | XMS_ITS | Encounter Summary ---
Author Organization [employer] Address [address] [place] [address] 7t [place] [address] Care Team Providers Care Swing Driver Name Role Phone Name, Bobby GRADY Primary Care Provider Inga Magaña PharmD Unavailable [phone] Reason for Visit * Reason Comments Med Refill Encounter Details Date Type Department Care Team (Late st Contact Info) Description 11/18/2022 Refill [facility] [address] [place], [place] [phone] Name, MD Bobby [address] [place] [address] Type 2 diabetes mellitus without complications (CMS/[facility]) Social History Tobacco Use Types [...] Description 01/25/2025 9:30 AM EDT Office Visit [facility] MEDICINE [address] [place] [address] Name, MD Bobby [address] [place] [address] 02/10/2025 9:30 AM EST Telemedicine [facility] MEDICINE [address] [place] [address] Skye Melton, RN 03/14/2025 10:00 AM EST Office Visit [facility] OPTOMETRY [address] [place] [address] Abbey Deng, OD [address] [place] [address] documented as of this encounter Visit Diagnoses Diagnosis Type 2 diabetes mellitus without complications (CMS/HCC) documented in this encounter Additional Health Concerns Assessment Noted Time PHQ-9 Depression Total Score: 0 03/11/20 11:47 AM EST documented as of this encounter Care Teams Swing Driver Relationship Specialty Start Date End Date Name, MD Bobby [address] [place] [address] PCP - General Family Medicine 06/01/15 Inga Magaña PharmD [address] [place] [address] Pharmacist Internal Medicine 01/07/23 09/29/23 Eloina 05/13/24 documented as of this encounter
--- OUTSIDE RECORDS SUMMARY | 2024-12-23 14:02 | XMS_ITS | Encounter Summary ---
Author Organization [employer] Address [address] [place] [address] [address] [address] Care Team Providers Care Crop Farm Helper Name Role Phone Name, Bobby GRADY Primary Care Provider Inga Magaña PharmD Unavailable Encounter Details Date Type Department Care Team (Late st Contact Info) Description 03/05/2022 Telephone [facility] MEDICINE [address] [place] [address] Monisha Linton CNM [address] [place] [address] Social History Tobacco Use Types Packs/Day Years [...] Description 01/25/2025 9:30 AM EDT Office Visit [facility] MEDICINE [address] [place] [address] Name, MD Bobby [address] [place] [address] 02/10/2025 9:30 AM EST Telemedicine [facility] MEDICINE [address] [place] [address] [phone] Skye Melton, HODA 03/14/2025 10:00 AM EST Office Visit [facility] OPTOMETRY [address] [place], [place] [phone] Abbey Deng, OD [address] [place] [address] documented as of this encounter Visit Diagnoses Not on filedocumented in this encounter Care Teams Crop Farm Helper Relationship Specialty Start Date End Date Name, MD Bobby [address] [place] [address] PCP - General Family Medicine 06/01/15 Inga Magaña PharmD [address] [place] [address] [phone] Pharmacist Internal Medicine 01/07/23 09/29/23 Eloina 05/13/24 documented as of this encounter
--- OUTSIDE RECORDS SUMMARY | 2024-12-23 14:02 | XMS_ITS | Encounter Summary ---
Author Organization [employer] Address [address] [place] [address] 7t [place] [address] Care Team Providers Care Clinical Appeals Rn Name Role Phone Name, Bobby GRADY Primary Care Provider Inga Magaña PharmD Unavailable [phone] Encounter Details Date Type Department Care Team (Late Contact Info) Description 09/01/2022 Abstract [facility] MEDICINE [address] [place] [phone] NameBobby MD [address] [place] [address] Social History Tobacco Use Types Packs/Day Years [...] 9:30 AM EDT Office Visit [facility] MEDICINE [address] [place] [address] [phone] Bobby David MD [address] [place] [address] [phone] 02/10/2025 9:30 AM EST Telemedicine [facility] MEDICINE [address] [place] [address] Skye Melton, RN 03/14/2025 10:00 AM EST Office Visit [facility] OPTOMETRY [address] [place] [address] Patricksophy Abbey, OD 267 [place] [address] documented as of this encounter Visit Diagnoses Not on filedocumented in this encounter Additional Health Concerns Assessment Noted Time PHQ-9 Depression Total Score: 0 03/11/20 22 11:47 AM EST documented as of this encounter Care Teams Clinical Appeals Rn Relationship Specialty Start Date End Date Name, MD Bobby 230 [place] [address] PCP - General Family Medicine 06/01/15 Inga Magaña, Lucio [address] [place] [address] Pharmacist Internal Medicine 01/07/23 09/29/23 Eloina 05/13/24 documented as of this encounter
--- OUTSIDE RECORDS SUMMARY | 2024-12-23 14:02 | XMS_ITS | Encounter Summary ---
Author Organization [employer] Address [address] [facility] 7t [place] [address] Care Team Providers Care Dairy Manufacturing Technologist Name Role Phone Name, Bobby GRADY Primary Care Provider Inga Magaña PharmD Unavailable [phone] Reason for Visit * Reason Onset Date Comments Med Refill 01/20/2023 Encounter Details Date Type Department Care Team ([facility] st Contact Info) Description 01/20/2023 Telephone [facility] MEDICINE [address] [place] [address] Name, MD Bobby [address] [place] [address] Med Refill Social History Tobacco Use Types [...] Description 01/25/2025 9:30 AM EDT Office Visit [facility] MEDICINE [address] [place] [address] Name, MD Bobby [address] [place] [address] 02/10/2025 9:30 AM EST Telemedicine [facility] MEDICINE [address] [place] [address] [phone] Skye Melton, RN 03/14/2025 10:00 AM EST Office Visit [facility] OPTOMETRY [address] [place], [place] [phone] Abbey Deng OD [address] [place] [address] documented as of this encounter Goals Goal Patient Goal Type Associated Problems Recent Progress Patient-Stated? Author Smoking cessation General No Inga Magaña, Lucio documented as of this encounter Visit Diagnoses Not on filedocumented in this encounter Additional Health Concerns Assessment Noted Time PHQ-9 Depression Total Score: 0 03/11/20 22 11:47 AM EST documented as of this encounter Care Teams Dairy Manufacturing Technologist Relationship Specialty Start Date End Date Name, MD Bobby [address] [place] [address] PCP - General Family Medicine 06/01/15 Inga Magaña, MiltonD [address] [place] [address] Pharmacist Internal Medicine 01/07/23 09/29/23 Eloina 05/13/24 documented as of this encounter
--- OUTSIDE RECORDS SUMMARY | 2024-12-23 14:02 | XMS_ITS | Encounter Summary ---
Author Organization [employer] Address [address] [place] [address] Care Team Providers Care History Professor Name Role Phone Name, Bobby GRADY Primary Care Provider [phone] Encounter Details Date Type Department Care Team (Latest Contact Info) Description 04/29/2024 Lab Requisition [facility] - Main Lab [address] [place] [address] Yared Weaver MD [address] [place] [address], [phone] Atherosclerotic heart disease of [place] coronary artery without angina pectoris Social History [...] 5:10 AM EST Atherosclerotic heart disease of [place] coronary artery without angina pectoris BASIC METABOLIC PANEL Routine 04/29/2024 5:10 AM EST Atherosclerotic heart disease of [place] coronary artery without angina pectoris documented in this encounter Results * (ABNORMAL) Basic metabolic panel (04/29/2024 5:10 AM EST) Sodium 143 133 - 145 mmol/L LAB CHEMISTRY METHOD 04/29/2024 11:20 AM EST [facility] LAB Potassium 4.5 3.5 - 5.5 mmol/L LAB CHEMISTRY METHOD 04/29/2024 11:20 AM [facility] LAB Chloride 106 96 - 110 mmol/L LAB CHEMISTRY METHOD 04/29/2024 11:20 AM [facility] LAB CO2 31 21 - 32 mmol/L LAB CHEMISTRY METHOD 04/29/2024 11:20 AM [facility] LAB Anion Gap 6 3 - 11 LAB CHEMISTRY METHOD 04/29/2024 11:20 AM [facility] LAB Glucose 97 70 - 100 mg/dL LAB CHEMISTRY METHOD 04/29/2024 11:20 AM [facility] LAB BUN 34(H) 5 - 25 mg/dL LAB CHEMISTRY METHOD 04/29/2024 11:20 AM [facility] LAB Creatinine 0.80 0.50 - 1.10 mg/dL LAB CHEMISTRY METHOD 04/29/2024 11:20 AM [facility] LAB eGFR 82 >=60 mL/min/1. 73m2 LAB CHEMISTRY METHOD 04/29/2024 11:20 AM [facility] LAB Comment:Calculation based on the Chronic Kidney Disease Epidemiology Collaboration (CKD-EPI) equation refit without adjustment for race. BUN/Creatinine Ratio 42.5 LAB CHEMISTRY METHOD 04/29/2024 11:20 AM [facility] LAB Calcium 7.9(L) 8.5 - 10.5 mg/dL LAB CHEMISTRY METHOD 04/29/2024 11:20 AM [facility] LAB Blood Venous blood specimen / Unknown Venipuncture / Unknown 04/29/2024 5:10 AM EST 04/29/2024 9:30 AM EST us Yared Weaver MD LAB BLOOD ORDERABLES Final Resul t [facility] LAB [address] [place] [address], * (ABNORMAL) Complete blood count (04/29/2024 5:10 AM EST) [facility] WBC 18.2(H) 4.8 - 10.8 K/mcL LAB HEMETOLOGY METHOD 04/29/2024 10:30 AM [facility] LAB RBC 5.30(H) 3.80 - 4.80 M/mcL LAB HEMETOLOGY METHOD 04/29/2024 10:30 AM [facility] LAB Hemoglobin 15.0 11.5 - 16.0 g/dL LAB HEMETOLOGY METHOD 04/29/2024 10:30 AM [facility] LAB Hematocrit 48.0(H) 35.0 - 47.0 % LAB HEMETOLOGY METHOD 04/29/2024 10:30 AM [facility] LAB MCV 90.2 79.0 - 98.0 FL LAB HEMETOLOGY METHOD 04/29/2024 10:30 AM [facility] LAB MCH 28.2 27.0 - 32.0 pcg LAB HEMETOLOGY METHOD 04/29/2024 10:30 AM [facility] LAB MCHC 31.3(L) 32.0 - 37.0 g/dL LAB HEMETOLOGY METHOD 04/29/2024 10:30 AM [facility] LAB RDW 14.7 11.0 - 15.0 % LAB HEMETOLOGY METHOD 04/29/2024 10:30 AM [facility] LAB Platelets 238 130 - 400 K/mcL LAB HEMETOLOGY METHOD 04/29/2024 10:30 AM [facility] LAB MPV 11.8(H) 7.0 - 11.0 FL LAB HEMETOLOGY METHOD 04/29/2024 10:30 AM [facility] LAB NRBC 0.0 <1.0 % LAB HEMETOLOGY METHOD 04/29/2024 10:30 AM [facility] LAB NRBC Absolute 0.00 <0.10 K/mcL LAB HEMETOLOGY METHOD 04/29/2024 10:30 AM EST [facility] LAB Blood Venous blood specimen / Unknown Venipuncture / Unknown 04/29/2024 5:10 AM EST 04/29/2024 9:30 AM EST us Yared Weaver MD LAB BLOOD ORDERABLES Final Resul t [facility] [address] [place] [address], documented in this encounter Visit Diagnoses Diagnosis Atherosclerotic heart disease of [place] coronary artery without angina pectoris documented in this encounter Care Teams History Professor Relationship Specialty Start Date End Date Name, MD Bobby 4 [place], [place] PCP - General Internal Medicine 04/01/18 documented as of this encounter
--- OUTSIDE RECORDS SUMMARY | 2024-12-23 14:02 | XMS_ITS | Encounter Summary ---
Author Organization [employer] Address [address] [facility] [address] [place] [address] Care Team Providers Care Bed Manager Name Role Phone Name, Bobby GRADY Primary Care Provider [phone] Reason for Visit * Reason Comments Med Refill Encounter Details Date Type Department Care Team ([facility] Contact Info) Description 07/20/2024 Refill [facility] [address] [place] [address] Sherly Pichardo FNP [address] [place] [address] Social History Tobacco Use Types Packs/Day Years [...] Description 01/25/2025 9:30 AM EDT Office Visit [facility] [address] [place] [id number] Name, MD Bobby [address] [place] [address] 02/10/2025 9:30 AM EST Telemedicine [facility] [address] [place] [address] Skye Melton, HODA 03/14/2025 10:00 AM EST Office Visit [facility] [address] [place] [address] Abbey Deng OD [address] [place] [address] documented as of this encounter Goals Goal Patient Goal Type Associated Problems Recent Progress Patient-Stated? Author Smoking cessation General No Inga Magaña, PharmD documented as of this encounter Visit Diagnoses Not on filedocumented in this encounter Additional Health Concerns Assessment Noted Time PHQ-9 Depression Total Score: 0 06/19/19 24 10:09 AM EDT documented as of this encounter Care Teams Bed Manager Relationship Specialty Start Date End Date Name, MD Bobby [address] [place] [address] PCP - General Family Medicine 06/01/15 [place] 05/13/24 documented as of this encounter
--- OUTSIDE RECORDS SUMMARY | 2024-12-23 14:02 | XMS_ITS | Clinical Summary ---
Author Organization [employer] Address [address] [place] [address] 7 [place] [address] Care Team Providers Care Roof Foreman Name Role Phone Name, Bobby GRADY Primary Care Provider [phone] Allergies Active Allergy Reactions Criticality Noted Date [...] miscIndications: Type 2 diabetes mellitus without complications ([facility]) Check BG twice daily 100 each [...] with other specified complication, unspecified whether terminal make up operator insulin use (CMS/HCC) USE DIRECTED FIVE TIMES [...] mellitus with other specified complication, unspecified whether fdc insulin use ([facility]) INJECT 40 units in the AM [...] solution auto-injectorInd ications:Type 2 diabetes with complication ([facility]),COPD exacerbation ([facility]) INJECT ONE PEN (=1.5MG) SUBCUTANEOUSLY ONCE A WEEK DIRECTED 2 mL 11 025 Active fluticasone (Flonase) 50 MCG/ACT nasal spray INSTILL 2 SPRAYS IN EACH NOSTRIL ONCE DAILY 16 g 3 025 Active baclofen (Lioresal) 10 MG tabletIndication s:Lumbar radiculopathy TAKE 1 TABLET BY MOUTH EVERY 8 HOURS NEEDED FOR MUSCLE SPASMS 45 tablet 025 Active oxyCODONE-acetam inophen (Percocet) 7.5-325 MG tabletIndication s:Chronic low back pain with sciatica, sciatica laterality unspecified, unspecified back pain laterality TAKE 1 TABLET BY MOUTH EVERY 6 HOURS NEEDED FOR SEVERE PAIN 112 tablet 025 Active baclofen (Lioresal) 10 MG tabletIndication s:Lumbar radiculopathy TAKE 1 TABLET BY MOUTH EVERY 8 HOURS NEEDED FOR MUSCLE SPASMS 45 tablet 025 2024 Discontinued oxyCODONE-acetam inophen (Percocet) 7.5-325 MG tabletIndication s:Chronic low back pain with sciatica, sciatica laterality unspecified, unspecified back pain laterality Take 1 tablet by mouth every 6 (six) hours if needed for severe pain for up to 28 days. TAKE 1 TABLET BY MOUTH EVERY 6 HOURS NEEDED FOR SEVERE PAIN Do not start before November 21, 2024. 112 tablet 025 2024 Discontinued Active Problems Problem [...] Encounters Date Type Department Care Team Description 12/19/2024 Refill [facility] [address] [place] [address] Bobby David MD Chronic low back pain with sciatica, sciatica laterality unspecified, unspecified back pain laterality 12/14/2024 Telephone [facility] [address] [place], [place] [phone] Bobby David MD Durable Medical Equipment 12/08/2024 Refill [facility] [address] [place], [place] [phone] Bobby David MD Lumbar radiculopathy 12/04/2024 Orders Only GENERIC EXTERNAL DATA DEPARTMENT Provider, Generic External Data 11/25/2024 10:00 AM EDT Telemedicine [facility] [address] [place] [phone] Skye Melton, HODA Long-term current use of opiate analgesic 11/25/[address] [address] Skye Melton, RN BPI scoring 11/25/2024 Travel 11/18/2024 Orders Only [facility] External Provider, [facility] 11/18/2024 Refill [facility] [address] [place] [address] NameBobby MD Chronic low back pain with sciatica, sciatica laterality unspecified, unspecified back pain laterality 11/14/[address] [phone] Bobby David MD Durable Medical Equipment (A/C) 11/14/2024 Refill [facility] [address] [place] [phone] Bobby David MD 11/07/2024 Refill [facility] [address] [place] [phone] Bobby David MD Type 2 diabetes with complication (CMS/HCC); COPD exacerbation (CMS/HCC) 11/04/2024 Telephone [facility] [address] [place] [phone] Bobby David MD 11/04/2024 Refill [facility] [address] [place] [phone] Bobby David MD Chronic obstructive pulmonary disease, unspecified (CMS/HCC) 11/02/2024 9:30 AM EDT Office Visit [facility] [address] [place] [phone] Bobby David MD Type 2 diabetes mellitus with other specified complication, unspecified whether terminal make up operator insulin use (CMS/HCC) (Primary Dx); Hypertension, unspecified type; Chronic obstructive pulmonary disease, unspecified COPD type (CMS/HCC); Atelectasis; Chronic pain syndrome; Acquired hypothyroidism; Encounter for screening mammogram for malignant neoplasm of breast 11/02/[address] [address] Bobby David MD FYI 11/02/2024 Travel 11/01/2024 Refill [facility] [address] [place] [address] Name, MD Bobby Lumbar radiculopathy 10/21/2024 Refill [facility] [address] [place] [address] Name, MD Bobby Chronic low back pain with sciatica, sciatica laterality unspecified, unspecified back pain laterality 10/05/2024 Refill [facility] [address] [place] [address] Name, MD Bobby Lumbar radiculopathy from Last 3 Months Immunizations Immunization Administration [...] Description 01/25/2025 9:30 AM EDT Office Visit [facility] [address] [place] [phone] Name, MD Bobby [address] [place] [address] 02/10/2025 9:30 AM EST Telemedicine [facility] [address] [place] [phone] Skye Melton RN 03/14/2025 10:00 AM EST Office Visit [facility] [address] [place] [address] Abbey Deng, OD [address] [place] [address] Health Maintenance Due Date Last Done Comments [...] Procedure Name Priority Date/Time Associated Diagnosis Comments BD DEXA AXIAL Routine 12/23/2024 12:50 PM EDT On prednisone therapy Osteopenia, unspecified location XR CHEST 1 VIEW Routine 12/04/2024 1:22 [...] mellitus with other specified complication, unspecified whether fdc insulin use (CMS/HCC) POCT GLUCOSE Routine 11/02/2024 9:44 AM EDT Type 2 diabetes mellitus with other specified complication, unspecified whether fdc insulin use (CMS/HCC) ALBUMIN, RANDOM URINE W/CREATININE Routine 12/29/2023 [...] Recently Relevant to Health Maintenance Results * BD DEXA Axial (12/23/2024 12:50 PM EDT) Anatomical Region Laterality Modality Body Radiographic Ludivina ging 12/23/2024 12:5 0 PM EDT Narrative 12/23/2024 1:23 PM EDT [facility] [address] [place] [address] [place] [address] Mammography Report Signed Patient: Marita Zapata MR#: [id number] : 1960 Acct:[id number] Age/Sex: 63 / F ADM Date: 12/23/24 Loc: HO.MAMMO Attending Dr: Bobby David MD Ordering Physician: Bobby David MD Results: Date of Service: 12/23/24 Follow Up: Procedure(s): XR DEXA axial skeleton Accession Number(s): [id number] cc: Bobby David MD Reason For Exam: osteopenia, chronic prednisone use EXAMINATION: DXA BONE DENSITY AXIAL HISTORY: osteopenia, chronic prednisone use TECHNIQUE: [email or web address] Dual energy absorptiometry (DEXA) of the lumbar spine, total left hip, and femoral neck was performed. COMPARISON: Comparison is made with the prior examination dated 04/24/2021. FINDINGS: The bone mineral density of the lumbar spine is 1.105 g/cm2, corresponding to a T-score of -0.6, and a Z-score of 0.7. This is indicative of normal bone mineral density. This represents a BMD change of -0.5% compared to the prior exam. This is not statistically significant. The bone mineral density of the left total hip is 0.758 g/cm2, corresponding to a T-score of -2.0, and a Z-score of -1.0. This is indicative of osteopenia. This represents a BMD change of -6.2% compared to the prior exam. This is statistically significant. The bone mineral density of the left femoral neck is 0.735 g/cm2, corresponding to a T-score of -2.2, and a Z-score of -0.9. This is indicative of osteopenia. This represents a BMD change of -5.0% compared to the prior exam. FRACTURE RISK: The FRAX index suggests a ten year probability of major osteoporotic fracture of 30.4%, and of hip fracture 9.8%. MM/XR DEXA axial skeleton IMPRESSION: Based on bone mineral density, and according to World Health Organization (WHO) criteria, the diagnosis is consistent with osteopenia. Statistically, 68% of repeat scans fall within 1 SD (+/- 0.010 g/cm2 for AP spine L1-L4) and 1 SD (+/- 0.012 g/cm2 for femur total) FRAX is a trademark of the [facility] [employer]'s [place] for Metabolic Bone Disease, a World Health Organization (WHO) Collaborating Center. Electronically signed by: Brooks Daly MD 12/23/2024 01:20 PM EDT RP Dictated By: Brooks Daly MD Signed By: <Electronically signed by Brooks Daly MD in OV> 12/23/24 1320 DD/ 1250 TD/TT: 12/23/24 1315 [employer]less Steamer Tender: Procedure Note Donotuseinterpreter, Image - 12/23/2024 [facility] [address] [place] [address] Mammography Report Signed Patient: Marita Zapata [facility]#: [id number] : 1960Acct:[id number] Age/Sex: 63 / FADM Date: 12/23/24 Loc: HO.MAMMO Attending Dr: Bobby David MD Ordering Physician: Bobby Davidesults: Date of Service: 12/23/24Follow Up: Procedure(s): XR DEXA axial skeleton Accession Number(s): [id number] cc: Bobby David MD Reason For Exam: osteopenia, chronic prednisone use EXAMINATION: DXA BONE DENSITY AXIAL HISTORY: osteopenia, chronic prednisone use TECHNIQUE: [email or web address] Dual energy absorptiometry (DEXA) of the lumbar spine, total left hip, and femoral neck was performed. COMPARISON: Comparison is made with the prior examination dated 04/24/2021. FINDINGS: The bone mineral density of the lumbar spine is 1.105 g/cm2, corresponding to a T-score of -0.6, and a Z-score of 0.7. This is indicative of normal bone mineral density. This represents a BMD change of -0.5% compared to the prior exam. This is not statistically significant. The bone mineral density of the left total hip is 0.758 g/cm2, corresponding to a T-score of -2.0, and a Z-score of -1.0. This is indicative of osteopenia. This represents a BMD change of -6.2% compared to the prior exam. This is statistically significant. The bone mineral density of the left femoral neck is 0.735 g/cm2, corresponding to a T-score of -2.2, and a Z-score of -0.9. This is indicative of osteopenia. This represents a BMD change of -5.0% compared to the prior exam. FRACTURE RISK: The FRAX index suggests a ten year probability of major osteoporotic fracture of 30.4%, and of hip fracture 9.8%. MM/XR DEXA axial skeleton IMPRESSION: Based on bone mineral density, and according to World Health Organization (WHO) criteria, the diagnosis is consistent with osteopenia. Statistically, 68% of repeat scans fall within 1 SD (+/- 0.010 g/cm2 for AP spine L1-L4) and 1 SD (+/- 0.012 g/cm2 for femur total) FRAX is a trademark of the [employer]'s [place] for Metabolic Bone Disease, a World Health Organization (WHO) Collaborating Center. Electronically signed by: Brooks Daly MD 12/23/2024 01:20 PM EDT Dictated By: Brooks Daly MD Signed By: <Electronically signed by Brooks Daly MD in OV> 12/23/24 1320 DD/ 1250 TD/TT: 12/23/24 1315 Endless Steamer Tender: Bobby Name IMG DXA PROCEDURES Final Result * XR Chest 1 View (12/04/2024 1:22 PM EDT) Anatomical Region Laterality Modality Chest Radiographic Ludivina ging 12/04/2024 1:22 PM EDT Narrative 12/04/2024 1:24 PM EDT [address] [address] XRay Report Signed Patient: Marita Zapata MR#: [id number] : 1960 Acct:[id number] Age/Sex: 63 / F ADM Date: 12/04/24 Loc: HO.ED Attending Dr: Ordering Physician: Drew Herrera Date of Service: 12/04/24 Procedure(s): XR chest 1V Accession Number(s): [id number] cc: Drew Herrera; Name,Bobby GRADY Reason for [...] 12/04/24 1323 DD/ 1322 TD/TT: 12/04/24 1322 Endless Steamer Tender: Procedure Note Donotuseinterpreter, Image - 12/04/2024 [place] [address] XRay Report Signed Patient: Marita Zapata [facility]#: [id number] : 1960Acct:[id number] Age/Sex: 63 / FADM Date: 12/04/24 Loc: .ED Attending Dr: Ordering Physician: Drew Herrera Date of Service: 12/04/24 Procedure(s): XR chest 1V Accession Number(s): [id number] cc: Drew Herrera; Name,Bobby GRADY Reason for [...] 12/04/24 1323 DD/ 1322 TD/TT: 12/04/24 1322 Endless Steamer Tender: [facility] External Provider IMG XR PROCEDURES Edited Result - Final * B Type Natriuretic Peptide (BNP) (12/04/2024 11:49 AM EDT) B Type Natriuretic Peptide 51 <100 pg/mL [facility] 12/04/2024 11:4 9 AM EDT 12/04/2024 11:51 AM EDT Generic External Data Provider LAB BLOOD ORDERAB LES Final Result Performing Organization Address City/[facility]/ZIP Co de Phone Number [facility] [address] [place] [phone] * High Sensitivity Troponin I (12/04/2024 11:35 AM EDT) TROPONIN I HIGH SENSITIVITY 3.9 <3.5 - 17.0 ng/L [facility] Comment:The Grossman high sens itivity Troponin-I results should beused in conjunction with other diagnostic information suchas ECG, clinical observations and information, and patientsymptoms to aid in the diagnosis of SC. 12/04/2024 11:3 5 AM EDT 12/04/2024 11:51 AM EDT Generic External Data Provider LAB BLOOD ORDERAB LES Final Result Performing Organization Address City/[facility]/ZIP Co de Phone Number [facility] [address] [place] [phone] * SARS-CoV-2 RNA, Influenza A/B, and RSV RNA, Ql NAAT (12/04/2024 11:35 AM EDT) [facility] Influenza A PCR NEGATIVE Negative [facility] Influenza B PCR NEGATIVE Negative [facility] Resp Syncy Virus RNA Qual PCR NEGATIVE Negative [facility] SARS COV2 PCR NEGATIVE Negative [facility] Comment:All test results mus t [...] use by authorized laboratories.Testing performed on the [employer] GeneXpert utilizingreal-time RT-PCR.All SARS CoV2 and positive influenza A/B results arereported to [facility]. 12/04/2024 11:3 5 AM EDT 12/04/2024 11:51 AM EDT us Generic External Data Provider LAB MICROBIOLOGY - GENERAL ORDERABLES Final Result [facility] [address] [place] [phone] * (ABNORMAL) CBC auto differential (12/04/2024 11:35 AM EDT) [facility] White Blood Count 12.6(H) 4.8 - 10.8 X10*3/uL [facility] Red Blood Count 5.66(H) 4.20 - 5.50 X10*6/uL [facility] Hemoglobin 15.9 12.0 - 16.0 g/dl [facility] Hematocrit 47.6(H) 37.0 - 47.0 % [facility] Mean Corpuscular Volume 84.1 80.0 - 98.0 fL [facility] Mean Corpuscular Hemoglobin 28.1 27.0 - 33.0 pg [facility] Mean Corpuscular HGB Conc 33.4 31.0 - 35.0 g/dl [facility] Red Cell Distribution Width 15.4 11.0 - 16.0 % [facility] Platelet Count 219 160 - 400 X10*3/uL [facility] Mean Platelet Volume 10.9 9.4 - 12.3 fL [facility] Neutrophils Percent Auto 53.4 45 - 73 % [facility] Imm Gran Pct Auto 0.4 0.0 - 0.4 % [facility] Lymphocytes Percent Auto 33.2 20 - 40 % [facility] Monocytes Percent Auto 8.6 2 - 11 % [facility] Eosinophils Percent Auto 3.4 0 - 4 % [facility] Basophils Percent Auto 1.0 0 - 2 % [facility] NRBC Pct Auto 0.0 0.0 - 0.2 /100WBC [facility] Neutrophils Absolute Auto 6.7 2.0 - 8.3 x10*3/uL [facility] Imm Gran Abs Auto 0.05(H) 0.00 - 0.03 X10*3/uL [facility] Lymphocytes Absolute Auto 4.2 1.2 - 4.9 X10*3/uL [facility] Monocytes Absolute Auto 1.1 0.1 - 1.2 X10*3/uL [facility] Eosinophils Absolute Auto 0.4 0.0 - 0.4 X10*3/uL [facility] Basophils Absolute Auto 0.1 0.0 - 0.2 X10*3/uL [facility] NRBC Abs Auto 0.000 0.0 - 0.012 X10*3/uL [facility] 12/04/2024 11:3 5 AM EDT 12/04/2024 11:51 AM EDT us Generic External Data Provider LAB BLOOD ORDERAB LES Final Result [facility] [address] [place] [phone] * Partial Thromboplastin Time, Activated (APTT) (12/04/2024 11:35 AM EDT) Partial Thromboplastin Time 27.7 26.7 - 34.1 SEC [facility] 12/04/2024 11:3 5 AM EDT 12/04/2024 11:51 AM EDT Generic External Data Provider LAB BLOOD ORDERAB LES Final Result [facility] [address] [place] [phone] * (ABNORMAL) Prothrombin Time-INR (12/04/2024 11:35 AM EDT) Prothrombin Time 9.7(L) 10.9 - 12.4 SEC [facility] INTERNATIONAL NORM RATIO 0.8(L) 0.9 - 1.1 [facility] Comment:INTERNATIONAL NORMAL IZED RATIO (INR) [...] ORDERAB LES Final Result Performing Organization Address City/[facility]/ZIP Co de Phone Number [facility] [address] [place] [phone] * Magnesium (12/04/2024 11:35 AM EDT) Magnesium 2.0 1.6 - 2.6 mg/dL [facility] 12/04/2024 11:3 5 AM EDT 12/04/2024 11:51 AM EDT us Generic External Data Provider LAB BLOOD ORDERAB LES Final Result [facility] [address] [place] [phone] * (ABNORMAL) Comprehensive Metabolic Panel (12/04/2024 11:35 AM EDT) Sodium 146(H) 135 - 145 mmol/L [facility] Potassium 3.5 3.3 - 5.1 mmol/L [facility] Chloride 113(H) 96 - 108 mmol/L [facility] Carbon Dioxide 22 22 - 29 mmol/L [facility] Anion Gap 15 12 - 20 [facility] Urea Nitrogen (BUN) 14 9 - 16 mg/dL [facility] Creatinine, Serum 0.78 0.5 - 1.4 mg/dL [facility] Creatinine Clr Calc Pharmacy 65.5 [facility] Comment:Provided height and weight: 165.1 cm,65.771 kg.eGFR (calculated from the MDRD study equation) and eCrCl(calculated from the Cockcroft-Gault equation) are based ondifferent parameters and may not yield comparable results.If eCrCl result is absurd, please check patient'sheight/weight. Estimated Glomerular Filt Rate >60 [facility] Comment:Chronic Kidney Disea se: Estimated GFR < 60 mL/min/1.53f8Jmbpdn Kidney Disease: Estimated GFR < 15 mL/min/1.73m2 Glucose 131(H) 60 - 115 mg/dL [facility] Calcium 8.9 8.4 - 10.2 mg/dL [facility] Bilirubin, Total 0.4 0.0 - 1.0 mg/dL [facility] Aspartate Amino Transferase 21 5 - 31 U/L [facility] Alanine Aminotransferase 21 0 - 31 U/L [facility] Total Protein 7.0 6.5 - 8.0 g/dL [facility] Albumin Level 4.2 3.5 - 5.0 g/dL [facility] Alkaline Phosphatase 78 39 - 117 U/L [facility] 12/04/2024 11:3 5 AM EDT 12/04/2024 11:51 AM EDT us Generic External Data Provider LAB BLOOD ORDERAB LES Final Result Performing Organization Address City/State/[facility] Co de Phone Number [facility] [address] [place] [phone] * CT Chest w/o Contrast (11/19/2024 7:06 PM EDT) Anatomical Region Laterality Modality Body, Chest Computed Tomogra phy 11/19/2024 7:06 PM EDT Narrative 11/19/2024 7:07 PM EDT [place] [address] CT Scan Report Signed Patient: Marita Zapata MR#: MM [id number] : 1960 Acct:[id number] Age/Sex: 63 / F ADM Date: 11/18/24 Loc: HO.CT Attending Dr: Fidel White MD Ordering Physician: Fidel White MD Date of Service: 11/18/24 Procedure(s): CT chest wo IV con Accession Number(s): [id number] cc: Bobby David MD; Fidel White MD Report Number: [id number]: Total DLP = 160.00 mGy-cm CLINICAL HISTORY: [...] in OV> 11/19/241906 DD/ 05 TD/TT: 11/19/241905 Endless Steamer Tender: Procedure Note Donotuseinterpreter, Image - 11/19/[address] [place] [address] [address] Scan Report Signed Patient: Marita Zapata [facility]#: MM [id number] : 1960Acct:[id number] Age/Sex: 63 / FADM Date: 11/18/24 Loc: HO.CT Attending Dr: Fidel White MD Ordering Physician: Fidel White MD Date of Service: 11/18/24 Procedure(s): CT chest wo IV con Accession Number(s): [id number] cc: Name,Bobby GRADY; Fidel White MD Report Number: [id number]: Total DLP = 160.00 mGy-cm CLINICAL HISTORY: [...] in OV> 11/19/241906 DD/ 05 TD/TT: 11/19/241905 Endless Steamer Tender: [facility] External Provider IMG CT PROCEDURES Final Result * (ABNORMAL) POCT HGB A1C (11/02/2024 9:46 AM EDT) Hemoglobin A1C 8.2(A) 4.0 - 5.7 % QC Media Lot # [id number] Lot# Expiration Date 62 Blood 11/02/2024 9:46 AM EDT Bobby David [...] 11:20 AM EDT) Creatinine, Urine 157.96 mg/dL [facility] Microalbumin Urine 47.0 mg/L [facility] Microalbum Creatinine Ratio Ur 29.7(H) <30 ug/mg cr [facility] Comment:Albumin/Creatinine R atio Reference Ranges: Normal: < 30 ug/mg creatinine Microalbuminuria: 30 - 300 ug/mg creatinineClinical Albuminuria: > 300 ug/mg creatinine Urine (Urine, Random) 12/29/2023 11:20 AM EDT 12/29/2023 1:01 PM EDT us Bobby David MD LAB URINE ORDERABLES Final Resul t [facility] [address] [place] [phone] * (ABNORMAL) Lipid Panel, Standard (12/29/2023 11:17 AM EDT) Triglycerides 172(H) <150 mg/dL [facility] Comment:Desirable Triglyceri de: less than 150 mg/dLBorderline High Triglyceride 150-199 mg/dLHigh Triglyceride: 200-499 mg/dLVery High Triglyceride: greater than or equal to 5OO mg/dL Cholesterol 140 <200 mg/dL [facility] Comment:Desirable Cholestero l: less than 200 mg/dLBorderline High Cholesterol: 200-239 mg/dLHigh Cholesterol: greater than 239 mg/dL LDL Cholesterol Calculated 61 <100 mg/dL [facility] Comment:Desirable LDL: less than 100 mg/dLNear Optimal/Above Optimal LDL: 110- 129 mg/dLBorderline High LDL: 130-159 mg/dLHigh LDL: 160-189 mg/dLVery High LDL: greater than or equal to 190 mg/dL HDL Cholesterol 45 >40 mg/dL [facility] Comment:Desirable HDL: great er than 40 mg/dL Note: This HDL assay may give artificially low results in patients with liver disease. Blood Venous blood specimen / Unknown 12/29/2023 11:17 AM EDT 12/29/2023 1:03 PM EDT us Bobby David MD LAB BLOOD ORDERABLES Final Resul t [facility] [address] [place] [phone] * (ABNORMAL) Colonoscopy (07/16/2022) Colonoscopy Abnormal( [...] has been evaluated with computer assisted technology. [facility] Finger Cobbler: SEE COMMENT [facility] Comment: CULP, CT(ASCP) CT screening location: [place] [address] HPV nRNA E6/E7 Not Detected Not Detected [facility] Comment: Methodology: Nurse Ortho-Mediated Amplification This assay detects E6/E7 viral messenger RNA (mRNA) from 14 high-risk HPV types (16,18,31,33,35,39,45,51,52,56,58,59,66,68). The analytical performance characteristics of this assay have been determined by [employer]. The modifications have not been cleared or approved by the FDA. This assay has been validated pursuant to the CLIA regulations and is used for clinical purposes. For additional information, please refer to http://education.FanTrail/faq/YYZ728u3 (This link if provided for information/ educational purposes only.) Interpretation/Re sult: Negative for intraepithelial lesion or malignancy. [facility] LMP: NONE GIVEN [facility] Prev. BX: HX ABNL [facility] Prev. PAP: 02/2018 [facility] SOURCE: None given [facility] Statement Of Adequacy: SEE COMMENT [facility] Comment: Satisfactory for evaluation. Endocervical/transformation zone component present. 02/27/2021 10:2 4 AM EST us Monisha MAZARIEGOS LAB PATHOLOGY ORDERABLES Final Result [facility] [address] [place] [address], from Last 3 Months or Most Recently Relevant to Health Maintenance Insurance [address] [place] [id number] [facility] ONE CARE < 64 DEBORAH SILVA [id number] Care Teams Roof Foreman Relationship Specialty Start Date End Date Name, MD Bobby [address] [place] [phone] PCP - General Family Medicine 06/01/15 [place] 05/13/24
--- OUTSIDE RECORDS SUMMARY | 2024-12-23 14:02 | XMS_ITS | Encounter Summary ---
Author Organization [employer] Address [address] [place] [address] [address] [place] [address] Care Team Providers Care Blender Operator Name Role Phone Name, Bobby GRADY Primary Care Provider [phone] Inga Magaña PharmD Unavailable Reason for Visit * Reason Comments Med Refill Encounter Details Date Type Department Care Team (Late st Contact Info) Description 10/03/2022 Refill [facility] [address] [place] [address] Name, MD Bobby [address] [place] [address] Lumbar radiculopathy Social History Tobacco Use Types [...] Description 01/25/2025 9:30 AM EDT Office Visit [facility] [address] [place] [phone] Name, MD Bobby [address] [place] [address] 02/10/2025 9:30 AM EST Telemedicine [facility] [address] [place] [address] Skye Melton, HODA 03/14/2025 10:00 AM EST Office Visit [facility] [address] [place] [address] Abbey Deng OD [address] [place], [place] documented as of this encounter Visit Diagnoses Diagnosis Lumbar radiculopathy Thoracic or lumbosacral neuritis or radiculitis, unspecified documented in this encounter Additional Health Concerns Assessment Noted Time PHQ-9 Depression Total Score: 0 03/11/20 22 11:47 AM EST documented as of this encounter Care Teams Blender Operator Relationship Specialty Start Date End Date Name, MD Bobby [address] [place] [id number] PCP - General Family Medicine 06/01/15 Inga Magaña PharmD [address] [place] [phone] Pharmacist Internal Medicine 01/07/23 09/29/23 Eloina 05/13/24 documented as of this encounter
--- OUTSIDE RECORDS SUMMARY | 2024-12-23 14:02 | XMS_ITS | Encounter Summary ---
Author Organization [employer] Address [address] [place] [address] [address] [place] [address] Care Team Providers Care Vehicle Return Associate Name Role Phone Name, Bobby GRADY Primary Care Provider [phone] Inga Magaña PharmD Unavailable Reason for Visit * Reason Comments Med Refill Encounter Details Date Type Department Care Team (Late st Contact Info) Description 05/15/2022 Refill [facility] [address] [place] [address] Name, MD Bobby [address] [place] [address] Seasonal allergic rhinitis, unspecified trigger (Primary Dx) [...] 9:30 AM EDT Office Visit [facility] [address] [place] [phone] Name, MD Bobby [address] [place] [address] 02/10/2025 9:30 AM EST Telemedicine [facility] [address] [place] [phone] Skye Melton, RN 03/14/2025 10:00 AM EST Office Visit [facility] [address] [place] [address] Abbey Deng, OD [address] [place] [address] documented as of this encounter Visit Diagnoses Diagnosis Seasonal allergic rhinitis, unspecified trigger- Primary documented in this encounter Additional Health Concerns Assessment Noted Time PHQ-9 Depression Total Score: 0 03/11/20 11:47 AM EST documented as of this encounter Care Teams Vehicle Return Associate Relationship Specialty Start Date End Date Name, MD Bobby [address] [place] [phone] PCP - General Family Medicine 06/01/15 Inga Magaña PharmD [address] [place] [address] Pharmacist Internal Medicine 01/07/23 09/29/23 Eloina 05/13/24 documented as of this encounter
--- OUTSIDE RECORDS SUMMARY | 2024-12-23 14:02 | XMS_ITS | Encounter Summary ---
Author Organization [employer] Address [address] [place] [address] [address] [place] [address] Care Team Providers Care Director Supplier Quality Name Role Phone Name, Bobby GRADY Primary Care Provider Inga Magaña PharmD Unavailable [phone] Reason for Visit * Reason Comments Med Refill Encounter Details Date Type Department Care Team ([facility] Contact Info) Description 11/18/2022 Refill [facility] [address] [place], [place] [phone] Sherly Pichardo, GEETA [address] [place], [place] [phone] Type 2 diabetes mellitus without complications (CMS/FORMERLY [facility]) Social History Tobacco Use Types Packs/Day Years [...] Upcoming Encounters Date Type Department Care Team ([facility] Contact Info) Description 01/25/2025 9:30 AM EDT Office Visit [facility] [address] [place] [address] Name, MD Bobby [address] [place] [address] 02/10/2025 9:30 AM EST Telemedicine [facility] [address] [place] [address] Skye Melton, RN 03/14/2025 10:00 AM EST Office Visit [facility] [address] [place] [phone] Abbey Deng, OD [address] [place] [address] documented as of this encounter Visit Diagnoses Diagnosis Type 2 diabetes mellitus without complications (CMS/HCC) documented in this encounter Additional Health Concerns Assessment Noted Time PHQ-9 Depression Total Score: 0 03/11/20 11:47 AM EST documented as of this encounter Care Teams Director Supplier Quality Relationship Specialty Start Date End Date Name, MD Bobby [address] [place] [id number] PCP - General Family Medicine 06/01/15 Inga Magaña PharmD [address] [place] [address] Pharmacist Internal Medicine 01/07/23 09/29/23 [place] 05/13/24 documented as of this encounter
--- OUTSIDE RECORDS SUMMARY | 2024-12-23 14:02 | XMS_ITS | Data Portability ---
Author Organization [facility], Main Office Address [address] [facility] [address] [place] [address] Care Team Providers Care Hardware Press Operator Name Role Phone [facility] OTHER NAME, MOHINI Primary Care Provider [phone] Assessment Encounter Date Assessment Date Assessment LastModified by Organization Details LastModified Time 05/03/2024 05/03/2024 Labs 04/27:Na 129-K 4.0-Bun 38-Cr 0.7-wbc 15.9-hgb 15.2- hct 45-plt 240 [email or web address] Not available 05/03/2024 18:08:16 05/05/2024 05/05/2024 Labs 04/27:Na 129-K 4.0-Bun 38-Cr 0.7-wbc 15.9-hgb 15.2- hct 45-plt 240 [email or web address] Not available 05/05/2024 12:09:46 05/11/2024 05/11/2024 Labs [...] Name and Address Organization Details Recorded Time Muscle weakness 03219233 Active 2024 Not Available [facility] 5 09:55:06 Unsteady when standing 896482391 Active 2024 Not Available [facility] 5 09:56:09 Difficulty walking 376889890 Active 2024 Not Available [facility] 5 09:56:40 Uncomplicat ed asthma 349415410 Active 2024 Not Available [facility] 5 14:07:57 Old myocardial infarction 9801901 Active 2024 Not Available [facility] 5 14:08:17 Obstructive sleep apnea syndrome 04140320 Active 2024 Not Available [facility] 5 14:09:00 Disorder of nervous system due to type 2 diabetes mellitus 810543993 Active 2024 Not Available [facility] 5 14:09:32 Acute exacerbatio n of chronic obstructive pulmonary disease 835782475 Active 2024 Not Available [facility] 5 13:13:30 Pneumonia caused by Influenza A virus 528008876 Active 2024 Not Available [facility] 5 12:06:26 Pneumonia caused by respiratory syncytial virus 390942734 Active 2024 Not Available [facility] 5 12:06:27 Type 2 diabetes mellitus 14492009 Active 2024 Not Available [facility] 5 12:09:46 Essential hypertensio n 33937660 Active 2024 Not Available [facility] 5 12:10:17 Hypothyroid ism 04798598 Active 2024 Not Available [facility] 5 12:10:48 Gastroesoph ageal reflux disease without esophagitis 783214671 Active 2024 Not Available [facility] 5 12:11:49 Primary gout 90895897 Active 2024 Not Available [facility] 5 12:11:50 Chronic obstructive pulmonary disease 13680583 Active 2024 GEETA KWOK [address] [place] [address], [facility] [address], [place], [address] , [facility] 5 14:52:55 Leukocytosi s 187099704 Active 2024 from steriod use NOVA KWOK[address], [address], [place], [address] , [facility] 5 14:54:46 Coronary arterioscle rosis 84860620 Active [address], [address], [place], [address] , [facility] 5 15:05:30 Gout 28521048 Active 2024 GEETA KWOK [address] [place] [address], [facility] [address], [place], [address] , [facility] 5 15:09:53 Allergic rhinitis 63137038 Active [address], [facility] [address], [place], [address] , [facility] 5 15:17:53 Smoker 38350727 Active 2024 MIGUE BRISENO [address], [facility] [address], [place], [address] , [facility] 5 15:27:03 Problem Notes None recorded. Medical Equipment None Reported. Allergies Allergen ID Allergen Name Allergen Category Reaction Reaction Severity Criticality Documentation Date Start Date Code Code System Note Provider Name and Address Organization Details Recorded Time 26821 Product containin g angiotens in-conver ting enzyme inhibitor (product) medicatio n angioedem a severe Not available 04/28/20242024 60520 009 SNOMED Not Available [facility] 15:23:36 03050 enalapril Not available Not available Not available high 04/28/20242017 3827 RxNorm Other react ion(s ): Anaph ylaxi s Chiquita Guardado MD [address] [place] [address], [address], [place], [address], [facility] 5 17:30:53 17340 metformin medicatio n Not available Not available Not available 04/28/20242024 6809 RxNorm Not Available [facility] 15:22:33 89794 hydromorp cb medicatio n Not available Not available high 04/28/20242022 3423 RxNorm Other react ion(s ): TINGL ING, PT DOES NOT LIKE THE FEELI MED GIVES HER Chiquita Guardado MD [address] [facility], [address], [place], [address], [facility] 5 17:31:40 18267 azithromy josephine medicatio n Not available Not available Not available 05/03/2024 57271 RxNorm Chiquita Guardado MD [address] [place] [address], [address], [place], [address], [facility] 5 17:30:27 03218 erythromy josephine medicatio n anaphylax is Not available high 05/03/20242010 4053 RxNorm Other react ion(s ): Hives /Urti caria , pustu les over entir e body, Unkno wn Other React ion(s ): Unkno wn Chiquita Guardado MD [address] [place] [address], [address], [place], [address], [facility] [employer] [facility] 5 17:31:13 33450 lisinopri l medicatio n Not available Not available Not available 05/03/2024 08638 RxNorm Chiquita Guardado MD [address] [place] [address], [address], [place], [address], [place] [facility] 5 17:31:53 72494 metoprolo l Not available Not available Not available Not available 05/03/2024 6918 RxNorm Chiquita Guardado MD [address] [place] [address], [address], [place], [address], [facility] 5 17:32:14 Medications Name Sig Start Date Stop [...] Not Available Not Available No t Available [employer] Ultra Test strips USE DIRECTED TO TEST [...] in Arterial blood by Pulse oximetry Systolic And Diastolic Provider Name and Address Organization Details Last Updated DateTime 5 165.1 cm 27.1 kg/m2 05072.1 2 g 78 /min 18 /min 97.5 [degF] 95 % 95 % 124/62 mm[Hg] Chiquita Guardado MD [address] [facility] [address], [place], [address], [facility] 5 17:39:40 Date Recorded Body height Respiratory rate Oxygen saturation Oxygen saturation in Arterial blood by Pulse oximetry Provider Name and Address Organization Details Last Updated DateTime 05/04/2024 165.1 cm 20 /min 95 % 95 % GEETA KWOK [address] [facility] [address], [place], [address], [facility] 5 16:47:12 Date Recorded Body height Heart rate Respiratory rate Body temperature Oxygen saturation Oxygen saturation in Arterial blood by Pulse oximetry Systolic And Diastolic Provider Name and Address Organization Details Last Updated DateTime 5 165.1 cm 86 /min 18 /min 97.5 [degF] 96 % 96 % 129/78 mm[Hg] JOHAN VU NP [address] [facility] [address], [place], [address], [facility] 5 12:09:17 Date Recorded Body height Body temperature Respiratory rate Heart rate Oxygen saturation Oxygen saturation in Arterial blood by Pulse oximetry Provider Name and Address Organization Details Last Updated DateTime 5 165.1 cm 97.4 [degF] 20 /min 72 /min 95 % 95 % MIUGE BRISENO, PRICE LISTER [address] [facility], [address], [place], [address], [facility] 5 16:23:28 Date Recorded Body height Heart rate Respiratory rate Body temperature Oxygen saturation Oxygen saturation in Arterial blood by Pulse oximetry Systolic And Diastolic Provider Name and Address Organization Details Last Updated DateTime 5 165.1 cm 80 /min 20 /min 97.4 [degF] 95 % 95 % 155/65 mm[Hg] JOHAN VU NP [address] [facility], [address], [place], [address], [facility] 5 10:33:52 Social History Question Answer Notes LastModified by Organization Details LastModified Time Tobacco Smoking Status Former Smoker quit 2017, then started again, now none x 2 months. Chiquita Guardado MD [address] [facility], [address], [place], [address], [facility] 05/03/2024 22:40:28 Do You Have An Advance Directive? Yes Information not available 05/01/2024 What Is Your Code Status? Full Code Information not available 05/01/2024 Where Do You Live? [place] With Information not available 05/03/2024 Legal Guardian? No Informati on not available 05/03/2024 Do You Have A Medical Power Of Client Solutions Manager? Yes Information not available 05/03/2024 What Was [...] Recorded Time Tdap 0 completed Samuel Felipe-[facility]ik [facility] 04/29/2024 12:14:00 Tdap 3 completed Samuel Felipe-[facility] 04/29/2024 12:14:06 Pneumococcal conjugate PCV 13 3 completed Samuel Felipe-[facility] 04/29/2024 12:14:27 pneumococcal polysaccharide PPV23 0 completed Samuel Felipe-[facility] 04/29/2024 12:14:43 influenza, unspecified formulation 1 completed Samuel ADORsebastian-Malik [facility] 04/29/2024 12:15:03 influenza, unspecified formulation 2 completed Samuel ADORsebastian-Malik [facility] 04/29/2024 12:15:20 influenza, unspecified formulation 3 completed Samuel Felipe-[facility] 04/29/2024 12:15:25 influenza, unspecified formulation 4 completed Samuel Felipe-[facility] 04/29/2024 12:15:30 SARS-COV-2 (COVID-19) vaccine, UNSPECIFIED 1 completed Samuel Felipe[facility] 04/29/2024 12:16:07 SARS-COV-2 (COVID-19) vaccine, UNSPECIFIED 1 completed Samuel Felipe-[facility] 04/29/2024 12:16:12 SARS-COV-2 (COVID-19) vaccine, UNSPECIFIED 1 completed Samuel Chappell [facility] 04/29/2024 12:16:16 SARS-COV-2 (COVID-19) vaccine, UNSPECIFIED 2 completed Samuel Chappell [facility] 04/29/2024 12:16:21 SARS-COV-2 (COVID-19) vaccine, UNSPECIFIED 2 completed Samuel Chappell [facility] 04/29/2024 12:16:27 SARS-COV-2 (COVID-19) vaccine, UNSPECIFIED 3 completed Samuel Ta [facility] 04/29/2024 12:16:41 SARS-COV-2 [...] Diagnosis SNOMED-CT Code Diagnosis ICD10 Code Diagnosis IMO Codes Diagnosis Note [id number] GEETA KWKO [facility] [address] [place] [address] 04/29/2024 10:45:26 05/03/2024 09:36:15 Chronic obstructive pulmonary disease 79656749 J44.9 2/ RSV/Influe nzaon presentati on O2 sats as low as 83 % and tachypneic 26tx inpatient with IV steroids, neb tx and abxcont doxycyclin e BID for 2 more dayscont on neb tx prn, albuterol inhaler prncont trelegy, respimat, dupixent. roflumilas tnow on prednisone taper , resume 2.5 mg when tapercompl etedmonito r resp status. Type 2 asa betes mellitus 13725783 E11.9 hx of neuropathy On trulicity, Insulin SSC, lyrica, jardiancec ont lantus at hsrobaxin prn for neuropathy painmonito r BGL TID Hypothyroidism 79970746 E03.9 continue on levothyrox inemonitor tsh prn Coronary arteriosclerosis 16877602 I25.10 HX of HLD, HTNon statincont on asamonitor for cardiac sx Essential hypertension 01622271 I10 cont on coreg dailymonit or BP Gout 29300418 M10.9 cont allopurino l dailyfollo w uric acid level prn Smoker 15490528 F17.200 reports that she has not smoked in 1 monthnow on nicotine patch 21 mgprovide support for cessation Hyperlipidemia 23261377 E78.5 cont atorvastat inmonitor labs prn Gastroesop hageal reflux disease without esophagitis 853222807 K21.9 cont omeprazole dailymonit or GI sx Allergic rhinitis 302580 04 J30.9 cont on fluticason e, montelukas t, cetirizine Leukocytosis 289817111 D 72.829 chronic from chronic steriod usefollow labs Low back pain 331711756 M54.50 cont lido patch qdpercocet prnon robaxin for neuropathy as well [id number] Chiquita Guardado MD [facility] [address] [place] [address] 05/03/2024 17:29:21 05/16/2024 12:42:00 Chronic obstructive pulmonary disease 53330497 J43.8 S/P several recent exacerbati ons, now [...] as planned. Type 2 asa betes mellitus 84957990 E11.42 Some high sugars since here, likely due to prednisone , expect improvemen t as taper continues. Continue Lantus 35U BID, Trulicity 1.5 mg weekly, Jardiance 10 mg qd, and SSI.Contin ue Lyrica 100 mg TID and methocarbo mol 750 mg q 8 hrs prn for neuropathy pain.Monit or fingerstic ks TID and HgA1C as outpt. Hypothyroidism 69057444 E03.8 Continue on levothyrox ine 112 mcg qdMonitor TSH as outpt. Coronary arteriosclerosis 20224132 I25.10 No recent sxs.Contin ue atorvastat in 80 mg qd, carvedilol 6.25 mg BID (hold for SBP<90), and ASA 81 mg qd.Monitor for sxs.F/U with cardio as planned. Essential hypertension 12860942 I10 Good control on meds as above.Chantel tor BP and labs. Gout 86615456 M10.09 No current sxs.Contin ue allopurino l 100 mg qdMonitor for flare. Smoker 95762261 F17.200 No longer smoking since recent hospitaliz ations.Con tinue nicotine patch 21 mg qd, taper as outpt.Cont inue to encourage abstinence . Hyperlipidemia 55175715 E78.49 Continue atorvastat in 80 mg qdMonitor labs as outpt. Gastroesop hageal reflux disease without esophagitis 061654568 K21.9 No current sxs.Contin ue omeprazole qdMonitor GI sxs Allergic rhinitis 655290 04 J30.89 Continue fluticason e nasal spray, montelukas t, and cetirizine Monitor sxs. Leukocytosis 567186369 D 72.828 Thought to be due to prednisone .Monitor Low back pain 882229775 M54.59 Under fair control.Co ntinue robaxin and Lyrica as above and lidocaine patch qd, and Percocet 7.5/325 mg q 6 hrs prn.PT/OT as above. Intertrigo 78858479 L30. 4 Continue diflucan 150 mg qod x 3 doses and will start nystatin cream BID.Monito r for healing. Asthenia 79828283 R53.1 Very deconditio bernice.Needs PT/OT for strengthen ing, balance, gait training, safety and function.C ontinue fall precaution s.Monitor for safety. [id number] GEETA KWOK [facility] [address] [place] [address] 05/04/2024 11:59:27 05/16/2024 14:09:43 Viral pharyngitis 3893575 B34.9 throat and tonsil noted with erythema and slight swelling, not exudateswi ll add lozenges take 1 prn Q2 and warm water and salt rinses for comfort qid prn Intertrigo 46746278 L30. 4 acute onset over 1-2 dayserythe matous and scattered dry patchy rash noted covering vast majority of left and right buttockscu rrently rx diflucan qod for 3 dosesdue to pruritis will add clotrimazo le/beta BID for 10 daydiscuss ed with nursing will re eval in 2 days [id number] JOHAN VU NP [facility] [address] [place] [address] 05/05/2024 12:08:09 05/10/2024 11:42:42 Chronic obstructive pulmonary disease 36719197 J44.9 2/ RSV/Influe nzaDoing betterWean ed off I5Eguqyzsf off prednisone .Doxy completed. Continue nebs and inhalers.C ombivent dose currently 2 inh bid, not typical but will not change as med managed by [facility].Monito r Type 2 asa betes mellitus 45387222 E11.9 BS borderline low in am and at lunchStill on prednisone taper.Disc ussed with pt.Plan -Continue trulicity and jardiance and SSIReduce lantus to 25 units q HS, continue 35 units in amAdd large portions to diet, refer to glass blowing lathe operator per pt. request, and assure HS snack (manuela crackers and PB on dinner tray)Monit or closely and adjust meds as needed. Hypothyroidism 88552824 E03.9 continue on levothyrox inemonitor tsh prn Coronary arteriosclerosis 74480023 I25.10 HX of HLD, HTNon statin, coreg, ASAmonitor for cardiac sx Essential hypertension 92120472 I10 cont on coreg dailymonit or BP Gout 68651021 M10.9 cont allopurino l dailyfollo w uric acid level prn Smoker 34389812 F17.200 reports that she has not smoked in 1 monthnow on nicotine patch 21 mgprovide support for cessation Hyperlipidemia 34600587 E78.5 cont atorvastat inmonitor labs prn Gastroesop hageal reflux disease without esophagitis 646472105 K21.9 cont omeprazole daily - came in on this doseUnsure of baseline, but will continue this dose for now, mahesh. with higher doses of prednisone .Consider dose taper when more stable and if stays LTC.monito r GI sx Allergic rhinitis 298971 04 J30.9 cont on fluticason e, montelukas t, cetirizine Leukocytosis 117393543 D 72.829 chronic from chronic steriod use - improving. 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 [id number] MIGUE BRISENO, PRICE LISTER [facility] [address] [place] [address] 05/11/2024 13:31:15 05/12/2024 14:06:40 Type 2 diabetes mellitus 85149355 E11.9 BS borderline low in am and at lunchStill on prednisone taper.Cont inue trulicity and jardiance and SSIReduce lantus to 25 units q HS, continue 35 units in amMonitor closely and adjust meds as needed. Dermal mycosis 28953728 B36.9 Breast folds, buttocksCo ntinue diflucan and topical antifungal /steroid cream.Keep areas clean and dryMonitor closely. Gastroesop hageal reflux disease without esophagitis 812061674 K21.9 cont omeprazole daily - came in on this doseUnsure of baseline, but will continue this dose for now, mahesh. with higher doses of prednisone .Consider dose taper when more stable and if stays LTC.monito r GI sx Chronic ob structive pulmonary disease 65354022 J44.9 2/2 RSV/Influe nzaDoing betterWean ed off R5Sjrnuigx off prednisone .Doxy completed. Continue nebs and inhalers.C ombivent dose currently 2 inh bid, not typical but will not change as med managed by [facility].Monito r Leukocytosis 318130043 D 72.829 chronic from chronic steriod use - improving. follow labs Essential hypertension 22233704 I10 cont on coreg dailymonit or BP Smoker 27705537 F17.200 reports that she has not smoked in 1 monthnow on nicotine patch 21 mgprovide support for cessation Pressure i njury of coccygeal region of back stage II 5330772075 8643276 L89.152 patient reporting coccyx painfollow ed by wound NPreiterat ed WHISKEY PROOF READER recommenda tions to Turn, reposition & offload Q2 hours & PRN to aid in wound healing. Encourage appropriat e dietary supplement ation to aid in wound healing. [id number] JOHAN VU NP [facility] [address] [place] [address] 05/12/2024 10:32:45 05/20/2024 10:27:09 Type 2 diabetes mellitus 26664451 E11.9 BS borderline low a few weeks ago, lantus reduced to 35 units q am, 25 units q hs.Remains on trulicity, jardiance, and lispro SSI.BS improved on reduced dose of lantus.Of note, prednisone taper ending 05/15.Pt. will continue to monitor BS at home and adjust insulin as needed. Dermal mycosis 77010245 B36.9 Breast folds, buttocks; now improving. Completed diflucan.M ay continue topical antifungal /steroid cream.Keep areas clean and dryMonitor closely. Gastroesop hageal reflux disease without esophagitis 697025964 K21.9 cont omeprazole daily Chronic ob structive pulmonary disease 13537031 J44.9 2/ RSV/Influe nzaResolve d.Weaned off W1Hfvipizt off prednisone .Doxy completed. Continue nebs and inhalers.M onitor Leukocytosis 570756163 D 72.829 chronic from chronic steriod use - improving. follow labs as outpt. Hypothyroidism 68914824 E03.9 continue on levothyrox inemonitor tsh prn Coronary arteriosclerosis 84359846 I25.10 HX of HLD, HTNon statin, coreg, ASAmonitor for cardiac sx Essential hypertension 50503272 I10 cont on coreg dailymonit or BP Gout 96776781 M10.9 cont allopurino l dailyfollo w uric acid level prn Smoker 43734319 F17.200 reports that she has not smoked in 1 monthnow on nicotine patch 21 mgprovide support for cessation - wishes to continue to not smoke upon d/c home. Hyperlipidemia 14379911 E78.5 cont atorvastat inmonitor labs prn Allergic rhinitis 707186 04 J30.9 cont on fluticason e, montelukas t, cetirizine Low back pain 663909542 M54.50 cont lido patch qdpercocet prnon robaxin for neuropathy as well Health Concerns Section Related Observation LastModified by Organization Detai ls LastModified Time None Recorded Concern Status LastModified by Organization Details LastModified Time None Recorded Advance Directives Directive Y: Payers Insurance Date Sequence Insurance Name Policy Number Policy Mendez Covered Member ID Mendez Member ID Guarantor Name 05/16/2024 1 [facility] - DOS ON OR AFTER 2022 - MEDICARE ADVANTAGE [place] (MEDICARE REPLACEMENT/ADV ANTAGE - PPO) Marita Lawrence [id number] Marita Lawrence 04/29/2024 1 [place]: [employer] Marita Ramirez [id number] Marita Lawrence Notes Date Note Type Note [...] influenza also on [facility]. [facility] and [facility].She [...] with post-op hypothyroidism. Chiquita Guardado MD [address] [facility], [address], [place], [address], [facility] 05/14/2024 17:33:09 5 text/html ROS as noted in the HPI Marita is seen today for acute rounding visit for c/o sore throat with hoarseness for 2 days, no new cough. she has been afebrile, denies any other sx bedside the development of a rash on her buttocks, she is currently on diflucan for rash. Patient states that rash was initial started as a red dot and spread quickly. GEETA KWOK [address] [facility], [address], [place], [address], [facility] 05/13/2024 16:49:37 5 text/html Marita is seen [...] snack. She is requesting to see the glass blowing lathe operator.She then shows me the rash on her [...] goiter s/p thyroidectomy with post-op hypothyroidism. JOHAN VU, MANDO [address] [facility], [address], [place], [address], [facility] 05/05/2024 12:42:06 5 text/html ROS as noted in the HPI This is a 63 yr old female [...] is nio acute concerns. GEETA KWOK [address] [facility], [address], [place], [address], [facility] 05/11/2024 16:45:23 5 text/html Marita is [...] with post-op hypothyroidism. JOHAN VU NP [address] [facility], [address], [place], [address], [facility] - [facility] 05/20/2024 10:22:41 OBGyn Episode No OBEpisode recorded.
--- OUTSIDE RECORDS SUMMARY | 2024-12-23 14:02 | XMS_ITS | Clinical Summary ---
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
== END 2024-12-23 12:27 | disposition home or self-care (01) ==
LOC: HO.MAMMO 12:26
PROVIDERS: PCP Internal Medicine Geriatric Medicine; Visit Provider Internal Medicine Geriatric Medicine
DX: Z12.31 Encounter for screening mammogram for malignant neoplasm of breast (principal); Z13.820 Encounter for screening for osteoporosis; M85.89 Other specified disorders of bone density and structure, multiple sites; Z79.52 Long term (current) use of systemic steroids
CPT/HCPCS: 77063; 77067; 77080

== ENCOUNTER → 2024-12-23 13:00 | Outpatient (BNV) | payer OTHER, SELFPAY | PROVIDERS: PCP Internal Medicine Geriatric Medicine; Visit Provider Radiology Diagnostic Radiology | DX: E28.39 Other primary ovarian failure (principal) | CPT/HCPCS: 77080 ==

== ENCOUNTER 2025-01-11 08:36 | Emergency (ER) | payer OTHER, SELFPAY ==
--- NOTE | 2025-01-11 | ECG_ITS ---
Test Reason : chest tightgness Blood Pressure : */* mmHG Vent. Rate : 86 BPM Atrial Rate : 86 BPM P-R Int : 140 ms QRS Dur : 94 ms QT Int : 378 ms P-R-T Axes : 65 -4 40 degrees QTcB Int : 452 ms Normal sinus rhythm Normal ECG When compared with ECG of 04-Dec-2024 11:02, Incomplete right bundle branch block is no longer Present Minimal criteria for Anterior infarct are no longer Present Referred By: Generic ED Physician Electronically Signed By: Eran Mcgarry
--- NOTE | ~2025-01-11 | XR_ITS ---
EXAMINATION: XR CHEST CLINICAL INFORMATION: SOB COMPARISON: Chest radiograph on December 04, 2024. Chest CT on November 18, 2024. TECHNIQUE: 2 views of the chest were obtained. FINDINGS: Lungs: Persistent chronic atelectasis of the right middle lobe. Remainder lung parenchyma appears clear. Pleura: No pleural effusion or pneumothorax. Heart/Mediastinum: Cardiomediastinal silhouette is within normal limits. Bones/Soft Tissues: No acute findings. XR/XR chest 2V IMPRESSION: No acute abnormality. Electronically signed by: Andriy Lama MD 01/11/2025 09:23 AM EDT
--- NOTE | ~2025-01-11 | CT_ITS ---
EXAMINATION: CT CHEST ANGIOGRAPHY WITH IV CONTRAST INDICATION: pleuritic chest pain, dyspnea COMPARISON: Previous chest CT scans October 2024 and July 2024 and May 2023 TECHNIQUE: Helical CT scan of the chest was performed following administration of intravenous contrast (65 mL Omnipaque 350). The contrast bolus was timed to optimally opacify the pulmonary arteries. Thin sections were obtained through the pulmonary arteries. Coronal and sagittal reformatted images were generated. 3D/MIP reconstructed images are also obtained and reviewed. This CT exam was performed with one or more of the following dose reduction techniques: automated exposure control, adjustment of the mA and/or kV according to patient size, use of iterative reconstruction technique. DLP: 316 mGy-cm CHEST: THYROID: The thyroid gland has been removed. PULMONARY ARTERIES: No intraluminal filling defects are identified within the pulmonary arteries to suggest pulmonary emboli. LUNGS: There is new subsegmental atelectasis or small infiltrate in the anterior segment of the right upper lobe for example axial image 53 series 6. There is atelectasis and consolidation in the lateral segment of the right middle lobe that is unchanged. There is minimal scarring or subsegmental atelectasis in the lingula that is unchanged. There is a 4 mm peripheral or subpleural right middle lobe nodule axial image 54 series 6 that is unchanged going back to May 2023. There are scattered areas of bronchial wall thickening. Central airways are clear. There is heterogeneous attenuation seen throughout the lungs probably representing mosaic perfusion from hypoventilatory changes. MEDIASTINUM: There is no mediastinal lymphadenopathy. ERIN: There is no hilar lymphadenopathy. CARDIOVASCULATURE: The heart is normal in size. There is no pericardial effusion. The thoracic aorta is normal in caliber. DEGREE OF CORONARY CALCIFICATION: mild PLEURA: There is no pleural effusion. No pneumothorax. MAIN AIRWAYS: The mainstem bronchi and proximal branches are patent. AXILLA: There is no axillary lymphadenopathy. UPPER ABDOMEN: The visualized portions of the liver, spleen, and adrenals are unremarkable. BONES AND SOFT TISSUES: Degenerative changes of the spine. CT/CT angio chest PE protocol IMPRESSION: No evidence of pulmonary emboli. Atelectasis/consolidation in the lateral segment of the right middle lobe and smaller area of subsegmental atelectasis in the lingula unchanged. New atelectasis or small infiltrate in the anterior segment of the right upper lobe. Mild diffuse bronchial wall thickening and heterogeneous mosaic attenuation probably representing hypoventilatory changes. Stable 4 mm peripheral or subpleural right middle lobe nodule. This probably represents a peripheral or subpleural lymph node and is stable going back to oldest available chest CT May 2023. Chest CT follow-up no longer indicated according to Fleischner criteria. Electronically signed by: Kely Bañuelos MD 01/11/2025 11:09 AM EDT
[2025-01-11 08:43] VITALS: BP 146/75; PULSE 86; RESP 22; TEMP 36.6; O2SAT 96; BMI 26.6
[2025-01-11 09:05] LABS: MANUAL DIFF FLAG NO
[2025-01-11 09:08] LABS: Hematocrit 53.0 % (37.0-47.0); Hemoglobin 17.1 g/dl (12.0-16.0); Imm Gran Abs Auto 0.09 X10*3/uL (0.00-0.03); Imm Gran Pct Auto 0.7 % (0.0-0.4); Lymphocytes Absolute Auto 2.3 X10*3/uL (1.2-4.9); Mean Corpuscular HGB Conc 32.3 g/dl (31.0-35.0); Mean Corpuscular Hemoglobin 28.3 pg (27.0-33.0); Mean Corpuscular Volume 87.7 fL (80.0-98.0); NRBC Abs Auto 0.000 X10*3/uL (0.0-0.012); NRBC Pct Auto 0.0 /100WBC (0.0-0.2); Platelet Count 216 X10*3/uL (160-400); Red Blood Count 6.04 X10*6/uL (4.20-5.50); White Blood Count 12.9 X10*3/uL (4.8-10.8)
[2025-01-11 09:22] LABS: Anion Gap 15 (12-20); Blood Urea Nitrogen 13 mg/dL (9-16); Calcium 9.2 mg/dL (8.4-10.2); Carbon Dioxide 21 mmol/L (22-29); Chloride 112 mmol/L (96-108); Creatinine Clr Calc Pharmacy 83.6; Estimated Glomerular Filt Rate > 60; Potassium 4.1 mmol/L (3.3-5.1); Sodium 144 mmol/L (135-145)
[2025-01-11 09:27] VITALS: BP 155/67; PULSE 83; RESP 18; O2SAT 93
--- NOTE | 2025-01-11 09:30 | ED.SOB ---
HPI - SOB/Dyspnea General Chief Complaint: Dyspnea Stated Complaint: Cant breathe, vomiting phlegm, CHF Time Seen by Provider: 01/11/25 09:56 Source: patient and old records reviewed Mode of arrival: ambulatory Limitations: no limitations History of Present Illness ED Provider: DR. Dietrich HPI Narrative: 64 yo female with PMH of COPD not on home O2, no CPAP, CHF, CAD s/p RCA stent, IBS, hyperthyroidism, not on blood thinners here with c/o sick for 3 days, dizziness, cough with increased sputum, chills. I don't feel right . She has been on new nucala infusion 3 weeks ago ever since patient is not feeling right. She notes she isn't getting better. She tried 20mg prednisone this AM and her breathing treatments. She has not been on any antibiotics recently as she refused azithromycin by her barrel centerer. Patient's symptoms is worsening with exertion. Related Data Home Medications ?Medication ?Instructions ?Recorded ?Confirmed aspirin 81 mg tablet,delayed 81 mg PO BEDTIME 12/24/19 01/11/25 release atorvastatin 80 mg tablet 80 mg PO BEDTIME 12/24/19 01/11/25 carvedilol 6.25 mg tablet 6.25 mg PO BID 12/24/19 01/11/25 cetirizine 10 mg tablet 10 mg PO DAILY PRN allergies 12/24/19 01/11/25 montelukast 10 mg tablet 10 mg PO BEDTIME 12/24/19 01/11/25 omeprazole 20 mg capsule,delayed 20 mg PO BID@1630 12/24/19 01/11/25 release docusate sodium 100 mg capsule 1 cap PO BEDTIME Constipation 01/24/21 01/11/25 blood sugar diagnostic (FreeStyle #10 ea 10/07/21 05/31/24 Lite Strips) lancets 33 gauge (TRUEplus Lancets) #100 ea 10/07/21 05/31/24 naloxone 4 mg/actuation nasal spray 1 spray intranasal ONCE PRN Opioid 10/07/21 01/11/25 Overdose oxycodone-acetaminophen 7.5 mg-325 1 tab PO Q6H PRN severe pain 06/23/22 01/11/25 mg tablet sennosides 8.6 mg tablet (senna) 8.6 mg PO BID Constipation 01/30/23 01/11/25 nebulizers 06/03/23 05/31/24 empagliflozin 10 mg tablet 10 mg PO DAILY 02/10/24 01/11/25 (Jardiance) insulin glargine 100 unit/mL (3 35 unit subcut BID 04/07/24 01/11/25 mL) subcutaneous pen (Lantus Solostar U-100 Insulin) levothyroxine 112 mcg tablet 112 mcg PO DAILY@0600 04/07/24 01/11/25 pregabalin 100 mg capsule 100 mg PO TID 04/07/24 01/11/25 dulaglutide 1.5 mg/0.5 mL 1.5 mg subcut WE@0900 04/21/24 01/11/25 subcutaneous pen injector (Trulicity) fluticasone propionate 50 1 spray intranasal DAILY PRN 04/21/24 01/11/25 mcg/actuation nasal Congestion spray,suspension insulin aspart U-100 100 unit/mL 6 - 10 sliding scale dose subcut 04/21/24 01/11/25 (3 mL) subcutaneous pen (Novolog TIDAC FlexPen U-100 Insulin aspart) ipratropium 20 mcg-albuterol 100 2 puff inhalation BID 04/21/24 01/11/25 mcg/actuation mist for inhalation (Combivent Respimat) baclofen 10 mg tablet 10 mg PO Q8H PRN muscle spasm 12/12/24 01/11/25 fluticasone fur. 100 mcg-umeclid 1 ea inhalation DAILY 01/11/25 01/11/25 62.5 mcg-vilant 25 mcg inhalat.powder (Trelegy Ellipta) lidocaine 5 % topical patch 1 patch topical DAILY PRN Pain 01/11/25 01/11/25 pyridoxine (vitamin B6) 50 mg 50 mg PO BEDTIME 01/11/25 01/11/25 tablet Previous Rx's ?Medication ?Instructions ?Recorded Ventolin HFA 90 mcg/actuation 2 puff inhalation Q4-6H PRN for 07/27/23 aerosol inhaler (albuterol sulfate) wheezing #18 grams arm brace (HANK Elbow Brace) #1 ea 08/27/23 ipratropium 0.5 mg-albuterol 3 mg 3 ml inhalation RQ4H WHILE AWAKE 04/26/24 (2.5 mg base)/3 mL nebulization PRN Shortness Of Breath/Wheezing soln #270 mL allopurinol 100 mg tablet 100 mg PO DAILY 90 days #90 tabs 10/17/24 roflumilast 500 mcg tablet 500 mcg PO DAILY #30 tabs 10/31/24 ondansetron 4 mg disintegrating 4 mg PO Q8H PRN nausea and 12/04/24 tablet vomiting 4 days #14 tabs prednisone 5 mg tablet 5 mg PO DAILY #30 tabs 12/19/24 doxycycline hyclate 100 mg tablet 100 mg PO BID #14 tabs 01/11/25 prednisone 20 mg tablet 20 mg PO BID #6 tabs 01/11/25 Allergies Allergy/AdvReac Type Severity Reaction Status Date / Time HANK Inhibitors (HANK Allergy Severe ANGIO Verified 01/11/25 08:45 INHIBITORS) EDEMA enalapril Allergy Severe Anaphylaxis Verified 01/11/25 08:45 erythromycin base Allergy Severe HIVES ALL Verified 01/11/25 08:45 (ERYTHROMYCIN BASE) OVER metformin Allergy Unknown Verified 01/11/25 08:45 hydromorphone (From DILAUDID) AdvReac Severe TINGLING, Verified 01/11/25 08:45 PT DOES NOT LIKE THE FEELING MED GIVES HER Review of Systems Review of Systems: All other systems are reviewed and are negative Constitutional: Reports as per HPI and Reports no additional constitutional complaints Eyes: Reports as per HPI and Reports no additional eye complaints Reports system reviewed and no additional complaints, except as documented Cardiovascular: Reports as per HPI and Reports no additional cardiovascular complaints Respiratory: Reports as per HPI and Reports no additional respiratory complaints Gastrointestinal: Reports as per HPI and Reports no additional gastrointestinal complaints Genitourinary: Reports no additional female genitourinary complaints Musculoskeletal: Reports no additional musculoskeletal complaints Skin/Breast: Reports system reviewed and no additional complaints, except as docu Psychiatric: Reports no additional psychiatric complaints Endocrine: Reports no additional endocrine complaints Hematologic/Lymphatic: Reports no additional hematologic/lymphatic complaints Allergic/Immunologic: Reports no additional allergic/immunologic complaints Reports system reviewed and no additional complaints, except as documented and Reports Abnormal speech present [facility] Past Medical History Medical History Chest pain History of RSV infection (03/2024) Hx of influenza (03/2024) Influenza A Asthma-COPD overlap syndrome Allergies History of back pain History of neuropathy Smokes tobacco daily Opioid dependence Nephrolithiasis Hyperlipidemia HTN (hypertension) Cardiomyopathy Myocardial infarction CAD (coronary artery disease) Cough Hypothyroidism, postsurgical Tubular adenoma Diabetes MCKAY (obstructive sleep apnea) Irritable bowel syndrome Hyperthyroidism Polycythemia Smoker Hypoxia COPD exacerbation Lesion of bronchus Tracheal anomaly Multinodular goiter Vitamin D deficiency Atelectasis Subclinical hyperthyroidism Goiter Pneumonia Pulmonary nodules COPD (chronic obstructive pulmonary disease) Surgical History History of coronary artery stent placement Hx of thyroidectomy History of thyroid surgery History of esophagogastroduodenoscopy (EGD) Hx of colonoscopy History of back surgery History of ureterostomy S/P lumpectomy, right breast History of cholecystectomy History of tonsillectomy Family History Family History Father No problems noted. Mother No problems noted. Paternal Aunt Diabetes Social History Social History Household Members: Significant Other Housing: House Are you a primary health care administrator to a significant other at home: No Do you presently have visiting nurse or other home services: No Alcohol intake: current Alcohol intake frequency: holidays/special occasions only Comment: declines alarm, steadt to walk short distance to commode Patient Tobacco Use Status: Current everyday Tobacco user Tobacco use type: Cigarette Cigarette Packs Per Day: 0.5 Cigarettes Per Day: 10 e-Cigarette/Vaping Use: Never Used Second Hand Smoke Exposure: Yes Substance Use Type: Other Advance Directives: Yes Advance Directives on File: Yes Advance Directives Date on File: 01/24/21 Do you have a plan to hurt others: No Plan service: No Current occupational status: disabled Physical Exam Vital Signs: Vital Signs: Last Vital Signs Temp 98.1 F 01/11/25 13:07 Pulse 78 01/11/25 13:07 Resp 18 01/11/25 13:07 BP 146/70 H 01/11/25 13:07 Pulse Ox 93 01/11/25 13:07 O2 Del Method Room Air 01/11/25 13:07 BMI result Body Mass Index 26.6 Vital signs have been reviewed and appear to be correct. Blood pressure elevated. Heart rate normal. Respiratory rate normal. Temperature normal. Oxygen saturation normal. Appearance: Alert. Oriented X3. No acute distress. Head: Normal external exam. Normocephalic. Atraumatic. No Cummins signs noted. No raccoon eyes noted Eyes: PERRLA. EOMI. Conjunctiva and sclera normal. Eyelids normal. ENT: TM's Normal. Pharynx normal. Uvula midline. Moist mucous membranes. No trismus noted. No drooling noted. No muffled voice noted. Neck: Normal inspection. Neck supple. FROM. No adenopathy. Thyroid Normal. No meningeal signs. No neck mass noted. CVS: Normal heart rate and rhythm. Heart sound normal. No murmurs noted. Pulses normal throughout. Respiratory: No respiratory distress. Painless inspiration. Breath sounds normal. Diffuse mild expiratory wheezing with prolonged expiration. No accessory muscle usage noted or decreased air movement noted. Abdomen: Soft and nontender. Bowel sounds normal in all 4 quadrants. No distention noted. No organomegaly noted. No visible injury noted. Back: No CVA tenderness. Full range of motion noted. Skin: Skin warm and dry. Normal skin color. Normal skin turgor. No rashes/lesions/lacerations noted. Extremities: No lower extremity edema. Extremities exhibit normal range of motion. Extremities nontender. Neuro: Oriented X 3. Cranial nerve exam: II-XII are grossly intact No motor deficit. No sensory deficit. Reflexes normal. Course Course Course Narrative: 64 yo female with PMH of COPD not on home O2, no CPAP, CHF, CAD s/p RCA stent, IBS, hyperthyroidism, not on blood thinners here with c/o sick for 3 days, dizziness, cough with increased sputum, chills. I don't feel right . She has been on new nucala infusion prior to this. She notes she isn't getting better. She tried 20mg prednisone this AM and her breathing treatments. She has not been on any antibiotics recently as she refused azithromycin by her barrel centerer. She has worsening breathing and now pain between both scapula that is worse with insipration. At this time labs, EKG, CTA:PE ordered, COPD exacerbation - IV abx, cultures, lactic acid, solumedrol and neg therapy. this is a RAPID medical screening exam the rest of the history and physical exam is to be done by the main provider. NELSON 01/11/25 939am Reevaluation(s) Reevaluation #1: 64-year-old female history of COPD, came in for not feeling well despite taking her COPD medication, satting at 90% RA with exertion, CTA shows no pulmonary embolism but right lung consolidation. Received ceftriaxone and doxycycline ED. Patient do not meet SIRS criteria, elevated leukocytosis secondary to steroid use at home. Patient do not meet criteria for a hospitalization admission. No hypoxia, no tachypnea, no tachycardia, no respiratory distress. Patient's O2 sat is 90-94% with ambulation on room air. Time: 12:06 Medications Administered Discontinued Medications Generic Name Dose Route Start Last Admin Trade Name Freq PRN Reason Stop Dose Admin Ceftriaxone Sodium 1 gm 01/11/25 09:32 01/11/25 10:01 Ceftriaxone Sodium 1 Gm Vial IVPUSH 01/11/25 09:33 1 gm ONCE ONE Administration Albuterol Sulfate 2.5 mg/ 0 mg 01/11/25 11:56 01/11/25 12:01 Albuterol/Ipratropium 3 ml INHALE 01/11/25 11:57 5 dose ONCE ONE Administration Doxycycline Hyclate 100 mg/ 250 mls @ 166.67 mls/hr 01/11/25 11:57 01/11/25 12:50 Sodium Chloride IV 01/11/25 13:26 166.67 mls/hr ONCE ONE Administration Iohexol 65 ml 01/11/25 10:20 01/11/25 10:21 Iohexol 350 Mg/Ml 75 Ml Infus..Btl IV 01/11/25 10:21 65 ml ONCE ONE Administration Methylprednisolone Sodium Succinate 60 mg 01/11/25 09:32 01/11/25 10:01 Methylprednisolone Sod Succ 125 Mg/2 Ml Vial IVPUSH 01/11/25 09:33 60 mg ONCE ONE Administration Medical Decision Making Differential Diagnosis Differential Diagnoses: The differential diagnosis associated with the presentation includes (Pulmonary embolism, pneumonia, pneumothorax, pleural effusion, COPD exacerbation, electrolyte derangement, severe anemia.) Admission/Observation Consideration of admission/observation: Escalation of care including admission/observation considered Consult Healthcare Provider Management of the patient was discussed with: Hospitalist (Dr. Beck) Lab Data MDM Lab Attestation statement: I reviewed the patient's lab results. 01/11/25 09:02 01/11/25 09:02 Labs: Lab Results 01/11/25 01/11/25 01/11/25 Range/Units 09:02 09:46 09:51 WBC 12.9 H (4.8-10.8) X10*3/uL RBC 6.04 H (4.20-5.50) X10*6/uL Hgb 17.1 H (12.0-16.0) g/dl Hct 53.0 H (37.0-47.0) % MCV 87.7 (80.0-98.0) fL MCH 28.3 (27.0-33.0) pg MCHC 32.3 (31.0-35.0) g/dl RDW 14.6 (11.0-16.0) % Plt Count 216 (160-400) X10*3/uL MPV 10.0 (9.4-12.3) fL Immature Gran % (Auto) 0.7 H (0.0-0.4) % Neut % (Auto) 74.1 H (45-73) % Lymph % (Auto) 18.1 L (20-40) % Nolan % (Auto) 6.0 (2-11) % Eos % (Auto) 0.5 (0-4) % Baso % (Auto) 0.6 (0-2) % Lymph # (Auto) 2.3 (1.2-4.9) X10*3/uL Nolan # (Auto) 0.8 (0.1-1.2) X10*3/uL Eos # (Auto) 0.1 (0.0-0.4) X10*3/uL Baso # (Auto) 0.1 (0.0-0.2) X10*3/uL Abs Immat Gran (auto) 0.09 H (0.00-0.03) X10*3/uL Absolute Neuts (auto) 9.6 H (2.0-8.3) x10*3/uL Absolute Nucleated RBC 0.000 (0.0-0.012) X10*3/uL Nucleated RBC % (auto) 0.0 (0.0-0.2) /100WBC VBG pH Cancelled 7.41 VBG pCO2 Cancelled 40 VBG pO2 Cancelled 48 VBG HCO3 Cancelled 26 VBG O2 Saturation Cancelled 74.0 VBG Base Excess Cancelled 1.6 Sodium 144 (135-145) mmol/L Potassium 4.1 (3.3-5.1) mmol/L Chloride 112 H (96-108) mmol/L Carbon Dioxide 21 L (22-29) mmol/L Anion Gap 15 (12-20) BUN 13 (9-16) mg/dL Creatinine 0.67 (0.5-1.4) mg/dL Estim Creat Clear Calc 83.6 Estimated GFR > 60 Random Glucose 180 H (60-115) mg/dL Lactic Acid 1.5 (0.5-2.0) mmol/L Calcium 9.2 (8.4-10.2) mg/dL Total Bilirubin 0.4 (0.0-1.0) mg/dL Direct Bilirubin 0.2 (0.0-0.5) mg/dL AST 19 (5-31) U/L ALT 22 (0-31) U/L Alkaline Phosphatase 79 (39-117) U/L Troponin I High Sens 4.2 (<3.5-17.0) ng/L NT-Pro-B Natriuret Pep 318.4 H (<300) pg/mL Total Protein 7.1 (6.5-8.0) g/dL Albumin 4.3 (3.5-5.0) g/dL Influenza Type A (PCR) NEGATIVE (Negative) Influenza Type B (PCR) NEGATIVE (Negative) RSV RNA Qual (PCR) NEGATIVE (Negative) SARS-CoV-2 RNA (RT-PCR) NEGATIVE (Negative) Independent Interpretation I performed an independent interpretation of an: Plain X-Ray (Chest: No acute abnormality.) and CT Scan (CT angio of the chest:No evidence of pulmonary emboli. Atelectasis/consolidation in the lateral segment of the right middle lobe and smaller area of subsegmental atelectasis in the lingula unchanged. New atelectasis or small infiltrate in the anterior segment of the right upper lobe. Mild diffu) Radiology Impression Discussion of test interpretation with radiology: I have reviewed the radiologist's reading. Discharge Plan Discharge Clinical Impression: COPD exacerbation, Pneumonia Patient Disposition: Home, Self-Care Instructions: COPD (Chronic Obstructive Pulmonary Disease) (ED), Community Acquired Pneumonia (DC) Prescriptions: New doxycycline hyclate 100 mg tablet 100 mg PO BID Qty: 14 0RF prednisone 20 mg tablet 20 mg PO BID Qty: 6 0RF No Action albuterol sulfate [Ventolin HFA] 90 mcg/actuation HFA aerosol inhaler 2 puff inhalation Q4-6H PRN (Reason: for wheezing) Qty: 18 11RF allopurinol 100 mg tablet 100 mg PO DAILY 90 Days Qty: 90 1RF roflumilast 500 mcg tablet 500 mcg PO DAILY Qty: 30 11RF prednisone 5 mg tablet 5 mg PO DAILY Qty: 30 3RF docusate sodium 100 mg capsule 1 cap PO BEDTIME insulin aspart U-100 [Novolog FlexPen U-100 Insulin] 100 unit/mL (3 mL) insulin pen 6 - 10 sliding scale dose subcut TIDAC Protocol: Insulin Correction Scale Less than or equal to 110 ---- Give (units): 0 111 to 150 Give (units): 0 151 to 200 Give (units): 2 201 to 250 Give (units): 4 251 to 300 Give (units): 6 301 to 350 Give (units): 8 Greater than 350 Give (units): 10 Call MD if Blood Glucose > : 350 Combivent Respimat 20-100 mcg/actuation mist 2 puff INHALATION BID Trulicity 1.5 mg/0.5 mL pen injector 1.5 mg subcut WE@0900 fluticasone propionate 50 mcg/actuation Parker,Suspension 1 spray INTRANASAL DAILY PRN (Reason: Congestion) Rx Instructions: administer into each nostril ipratropium-albuterol 0.5 mg-3 mg(2.5 mg base)/3 mL Solution For Nebulization 3 ml inhalation RQ4H WHILE AWAKE PRN (Reason: Shortness Of Breath/Wheezing) Qty: 270 0RF sennosides [senna] 8.6 mg Tablet 8.6 mg PO BID insulin glargine [Lantus Solostar U-100 Insulin] 100 unit/mL (3 mL) insulin pen 35 unit SUBCUT BID Rx Instructions: PER PATIENT, MAY REQUIRE HIGHER DOSES WHEN ON STEROIDS levothyroxine 112 mcg tablet 112 mcg PO DAILY@0600 pregabalin 100 mg capsule 100 mg PO TID ondansetron 4 mg tablet,disintegrating 4 mg PO Q8H PRN (Reason: nausea and vomiting) 4 Days Qty: 14 0RF Trelegy Ellipta 100-62.5-25 mcg blister with device 1 ea INHALATION DAILY lidocaine 5 % adhesive patch,medicated 1 patch topical DAILY PRN (Reason: Pain) Rx Instructions: leave on most painful area for up to 12 hrs pyridoxine (vitamin B6) 50 mg tablet 50 mg PO BEDTIME omeprazole 20 mg capsule,delayed release(DR/EC) 20 mg PO BID@1630 aspirin 81 mg tablet,delayed release (DR/EC) 81 mg PO BEDTIME carvedilol 6.25 mg tablet 6.25 mg PO BID atorvastatin 80 mg tablet 80 mg PO BEDTIME Protocol: Hold for SBP< HOLD for SBP < : 90 montelukast 10 mg tablet 10 mg PO BEDTIME cetirizine 10 mg tablet 10 mg PO DAILY PRN (Reason: allergies) (DME) lancets [TRUEplus Lancets] 33 gauge misc See Rx Instructions .ROUTE TID Qty: 100 Rx Instructions: As directed (DME) FreeStyle Lite Strips Strip See Rx Instructions .ROUTE TID Qty: 10 Rx Instructions: As directed naloxone 4 mg/actuation spray,non-aerosol 1 spray intranasal ONCE PRN (Reason: Opioid Overdose) oxycodone-acetaminophen 7.5-325 mg tablet 1 tab PO Q6H PRN (Reason: severe pain) (DME) nebulizers Misc See Rx Instructions .Route Rx Instructions: As directed (DME) HANK Elbow Brace Misc See Rx Instructions .Route Qty: 1 0RF Rx Instructions: As directed Jardiance 10 mg tablet 10 mg PO DAILY baclofen 10 mg tablet 10 mg PO Q8H PRN (Reason: muscle spasm) Referrals: Name,MD Bobby [Primary Care Provider, Internal Medicine] Fidel White MD [Physician, Pulmonology] Print Language: Austrian
[2025-01-11 09:31] LABS: Troponin-I High Sensitivity 4.2 ng/L (<3.5-17.0)
[2025-01-11 09:48] LABS: Resp Syncy Virus RNA Qual PCR NEGATIVE (Negative); SARS COV2 PCR INHOUSE NEGATIVE (Negative)
[2025-01-11 09:55] LABS: Venous Blood Gas Refer to POC result
[2025-01-11 09:57] LABS: VBG HCO3 26 mmol/L (22-26); VBG O2 % Saturation 74.0 %
[2025-01-11 09:58] LABS: Alanine Aminotransferase 22 U/L (0-31); Albumin Level 4.3 g/dL (3.5-5.0); Alkaline Phosphatase 79 U/L (39-117); Aspartate Amino Transferase 19 U/L (5-31); Total Protein 7.1 g/dL (6.5-8.0)
[2025-01-11 10:06] VITALS: O2SAT 92
[2025-01-11 10:16] LABS: NT Pro B Type Natriuretic Pept 318.4 pg/mL (<300)
[2025-01-11] MEDS: iohexoL 350 MG/ML 75 ML INFUS..BTL 65 ML IV (10:21)
--- OUTSIDE RECORDS SUMMARY | 2025-01-11 11:45 | XMS_ITS | Encounter Summary ---
Author Organization [employer] Address [address] [place] [address] [address] [place] [address] Care Team Providers Care Superintendent Storage Area Name Role Phone Name, Bobby GRADY Primary Care Provider [phone] Inga Magaña PharmD Unavailable Reason for Visit * Reason Comments Med Refill Encounter Details Date Type Department Care Team (Late st Contact Info) Description 04/07/2022 Refill [facility] [address] [facility] [address] Sherly Pichardo, SURVEILLANCE SENSOR OFFICER [address] [place] [address] Chronic low back pain with sciatica, sciatica [...] Description 01/25/2025 9:30 AM EDT Office Visit [facility] MEDICINE [address] [place] [id number] Name, MD Bobby Lamont [facility] [place] [address] 02/10/2025 9:30 AM EST Telemedicine [facility] MEDICINE [address] [place] [address] Skye Melton, HODA 03/14/2025 10:00 AM EST Office Visit [facility] OPTOMETRY [address] [place] [address] Abbey Deng, KIKA [address] [place] [address] documented as of this encounter Visit Diagnoses Diagnosis Chronic low back pain with sciatica, sciatica laterality unspecified, unspecified back pain laterality documented in this encounter Additional Health Concerns Assessment Noted Time PHQ-9 Depression Total Score: 0 03/11/20 22 11:47 AM EST documented as of this encounter Care Teams Superintendent Storage Area Relationship Specialty Start Date End Date Name, [place] [address] PCP - General Family Medicine 06/01/15 Inga Magaña PharmD [address] [place] [id number] Pharmacist Internal Medicine 01/07/23 09/29/23 Eloina 05/13/24 documented as of this encounter
--- OUTSIDE RECORDS SUMMARY | 2025-01-11 11:45 | XMS_ITS | Encounter Summary ---
Author Organization [employer] Address [address] [facility] 7t [place] [address] Care Team Providers Care Mechanic Driver Name Role Phone Name, Bobby GRADY Primary Care Provider [phone] Encounter Details Date Type Department Care Team (Late st Contact Info) Description 01/11/2025 Orders Only GENERIC EXTERNAL DATA DEPARTMENT Provider, [...] Upcoming Encounters Date Type Department Care Team ([facility] st Contact Info) Description 01/25/2025 9:30 AM EDT Office Visit [facility] [address] [place] [phone] Name, MD Bobby [address] [place] [phone] 02/10/2025 9:30 AM EST Telemedicine [facility] [address] [place] [phone] Skye Melton, HODA 03/14/2025 10:00 AM EST Office Visit [facility] [address] [place] [address] Abbey Deng, OD [address] [place] [address] documented as of this encounter Goals Goal Patient Goal Type Associated Problems Recent Progress Patient-Stated? Author Smoking cessation General No Inga Magaña, Lucio documented as of this encounter Procedures Procedure Name Priority Date/Time Associated Diagnosis Comments CTA CHEST PE PROTOCAL Routine 01/11/2025 10:18 AM EDT VENOUS BLOOD GAS Routine 01/11/2025 9:51 AM EDT LACTIC ACID Routine 01/11/2025 9:46 AM EDT HIGH SENSITIVITY TROPONIN I Routine 01/11/2025 9:02 AM EDT SARS COV2/INFLUENZA A/B AND RSV RNA QL NAAT Routine 01/11/2025 9:02 AM EDT CBC WITH AUTO DIFFERENTIAL Routine 01/11/2025 9:02 AM EDT BASIC METABOLIC PANEL Routine 01/11/2025 9:02 AM EDT XR CHEST 2 VIEWS Routine 01/11/2025 9:00 AM EDT documented in this encounter Results * CTA Chest PE Protocal (01/11/2025 10:18 AM EDT) Anatomical Region Laterality Modality Body, Chest Computed Tomogra phy 01/11/2025 10:1 8 AM EDT Narrative 01/11/2025 11:12 AM EDT [place] [address] [address] Scan Report Signed Patient: Marita Zapata MR#: [id number] : 1960 Acct:[id number] Age/Sex: 64 / F ADM Date: 01/11/25 Loc: .ED Attending Dr: Ordering Physician: Rebecca Terry DO Date of Service: 01/11/25 Procedure(s): CT angio chest PE protocol Accession Number(s): [id number] cc: Rebecca Terry DO; Name,Bobby GRADY Report Number: [id number]: Total DLP = 316.00 mGy-cm Reason for Exam: pleuritic chest pain, dyspnea EXAMINATION: CT CHEST ANGIOGRAPHY WITH IV CONTRAST INDICATION: pleuritic chest pain, dyspnea COMPARISON: Previous chest CT scans October 2024 and July 2024 and May 2023 TECHNIQUE: Helical CT scan of the chest was performed following administration of intravenous contrast (65 mL Omnipaque 350). The contrast bolus was timed to optimally opacify the pulmonary arteries. Thin sections were obtained through the pulmonary arteries. Coronal and sagittal reformatted images were generated. 3D/MIP reconstructed images are also obtained and reviewed. This CT exam was performed with one or more of the following dose reduction techniques: automated exposure control, adjustment of the mA and/or kV according to patient size, use of iterative reconstruction technique. DLP: 316 mGy-cm CHEST: THYROID: The thyroid gland has been removed. PULMONARY ARTERIES: No intraluminal filling defects are identified within the pulmonary arteries to suggest pulmonary emboli. LUNGS: There is new subsegmental atelectasis or small infiltrate in the anterior segment of the right upper lobe for example axial image 53 series 6. There is atelectasis and consolidation in the lateral segment of the right middle lobe that is unchanged. There is minimal scarring or subsegmental atelectasis in the lingula that is unchanged. There is a 4 mm peripheral or subpleural right middle lobe nodule axial image 54 series 6 that is unchanged going back to May 2023. There are scattered areas of bronchial wall thickening. Central airways are clear. There is heterogeneous attenuation seen throughout the lungs probably representing mosaic perfusion from hypoventilatory changes. MEDIASTINUM: There is no mediastinal lymphadenopathy. ERIN: There is no hilar lymphadenopathy. CARDIOVASCULATURE: The heart is normal in size. There is no pericardial effusion. The thoracic aorta is normal in caliber. DEGREE OF CORONARY CALCIFICATION: mild PLEURA: There is no pleural effusion. No pneumothorax. MAIN AIRWAYS: The mainstem bronchi and proximal branches are patent. AXILLA: There is no axillary lymphadenopathy. UPPER ABDOMEN: The visualized portions of the liver, spleen, and adrenals are unremarkable. BONES AND SOFT TISSUES: Degenerative changes of the spine. CT/CT angio chest PE protocol IMPRESSION: No evidence of pulmonary emboli. Atelectasis/consolidation in the lateral segment of the right middle lobe and smaller area of subsegmental atelectasis in the lingula unchanged. New atelectasis or small infiltrate in the anterior segment of the right upper lobe. Mild diffuse bronchial wall thickening and heterogeneous mosaic attenuation probably representing hypoventilatory changes. Stable 4 mm peripheral or subpleural right middle lobe nodule. This probably represents a peripheral or subpleural lymph node and is stable going back to oldest available chest CT May 2023. Chest CT follow-up no longer indicated according to Fleischner criteria. Electronically signed by: Kely Bañuelos MD 01/11/2025 11:09 AM EDT Dictated By: Kely Bañuelos MD Signed By: <Electronically signed by Kely Bañuelos MD in OV> 01/11/25 1109 DD/ 1018 TD/TT: 01/11/25 1050 Berry Picker Machine Operator: ISH Procedure Note Donotuseinterpreter, Image - 01/11/[address] [address] [address] Scan Report Signed Patient: Marita Zapata [facility]#: [id number] : 1960Acct:[id number] Age/Sex: 64 / FADM Date: 01/11/25 Loc: HO.ED Attending Dr: Ordering Physician: Rebecca Terry DO Date of Service: 01/11/25 Procedure(s): CT angio chest PE protocol Accession Number(s): [id number] cc: Rebecca Terry DO; Name,Bobby GRADY Report Number: [id number]: Total DLP = 316.00 mGy-cm Reason for Exam: pleuritic chest pain, dyspnea EXAMINATION: CT CHEST ANGIOGRAPHY WITH IV CONTRAST INDICATION: pleuritic chest pain, dyspnea COMPARISON: Previous chest CT scans October 2024 and July 2024 and May 2023 TECHNIQUE: Helical CT scan of the chest was performed following administration of intravenous contrast (65 mL Omnipaque 350). The contrast bolus was timed to optimally opacify the pulmonary arteries. Thin sections were obtained through the pulmonary arteries. Coronal and sagittal reformatted images were generated. 3D/MIP reconstructed images are also obtained and reviewed. This CT exam was performed with one or more of the following dose reduction techniques: automated exposure control, adjustment of the mA and/or kV according to patient size, use of iterative reconstruction technique. DLP: 316 mGy-cm CHEST: THYROID: The thyroid gland has been removed. PULMONARY ARTERIES: No intraluminal filling defects are identified within the pulmonary arteries to suggest pulmonary emboli. LUNGS: There is new subsegmental atelectasis or small infiltrate in the anterior segment of the right upper lobe for example axial image 53 series 6. There is atelectasis and consolidation in the lateral segment of the right middle lobe that is unchanged. There is minimal scarring or subsegmental atelectasis in the lingula that is unchanged. There is a 4 mm peripheral or subpleural right middle lobe nodule axial image 54 series 6 that is unchanged going back to May 2023. There are scattered areas of bronchial wall thickening. Central airways are clear. There is heterogeneous attenuation seen throughout the lungs probably representing mosaic perfusion from hypoventilatory changes. MEDIASTINUM: There is no mediastinal lymphadenopathy. ERIN: There is no hilar lymphadenopathy. CARDIOVASCULATURE: The heart is normal in size. There is no pericardial effusion. The thoracic aorta is normal in caliber. DEGREE OF CORONARY CALCIFICATION: mild PLEURA: There is no pleural effusion. No pneumothorax. MAIN AIRWAYS: The mainstem bronchi and proximal branches are patent. AXILLA: There is no axillary lymphadenopathy. UPPER ABDOMEN: The visualized portions of the liver, spleen, and adrenals are unremarkable. BONES AND SOFT TISSUES: Degenerative changes of the spine. CT/CT angio chest PE protocol IMPRESSION: No evidence of pulmonary emboli. Atelectasis/consolidation in the lateral segment of the right middle lobe and smaller area of subsegmental atelectasis in the lingula unchanged. New atelectasis or small infiltrate in the anterior segment of the right upper lobe. Mild diffuse bronchial wall thickening and heterogeneous mosaic attenuation probably representing hypoventilatory changes. Stable 4 mm peripheral or subpleural right middle lobe nodule. This probably represents a peripheral or subpleural lymph node and is stable going back to oldest available chest CT May 2023. Chest CT follow-up no longer indicated according to Fleischner criteria. Electronically signed by: Kely Bañuelos MD 01/11/2025 11:09 AM EDT Dictated By: Kely Bañuelos MD Signed By: <Electronically signed by Kely Bañuelos MD in OV> 01/11/25 1109 DD/ 1018 TD/TT: 01/11/25 1050 Berry Picker Machine Operator: ISH us [facility] External Provider IMG CT PROCEDURES Final Result * VENOUS BLOOD GAS (01/11/2025 9:51 AM EDT) VBG pH 7.41 7.32 - 7.43 [facility] Comment:METER #: [id number] additional_comment: Cb bdaweh VBG PCO2 40 mmHg [facility] Comment:METER #: [id number] additional_comment: Cb bdaweh VBG PO2 48 mmHg [facility] Comment:METER #: [id number] additional_comment: Cb bdaweh VBG Base Excess 1.6 mmol/L [facility] Comment:METER #: [id number] additional_comment: Cb bdaweh VBG HCO3 26 22 - 26 mmol/L [facility] Comment:METER #: [id number] additional_comment: Cb bdaweh O2 Sat, Maynor 74.0 % [facility] Comment:METER #: [id number] additional_comment: Cb bdaweh 01/11/2025 9:51 AM EDT 01/11/2025 9:56 AM EDT Generic External Data Provider LAB BLOOD ORDERAB LES Final Result Performing Organization Address [facility] Co de Phone Number [facility] [address] [place] [phone] * Lactic Acid (01/11/2025 9:46 AM EDT) Lactic Acid 1.5 0.5 - 2.0 mmol/L [facility] 01/11/2025 9:46 AM EDT 01/11/2025 9:49 AM EDT Generic External Data Provider LAB BLOOD ORDERAB LES Final Result Performing Organization Address [facility]/ZIP Co de Phone Number [facility] [address] [place] [address] [phone] * SARS-CoV-2 RNA, Influenza A/B, and RSV RNA, Ql NAAT (01/11/2025 9:02 AM EDT) Pathologist [facility] Influenza A PCR NEGATIVE Negative [facility] Influenza B PCR NEGATIVE Negative [facility] Resp Syncy Virus RNA Qual PCR NEGATIVE Negative [facility] SARS COV2 PCR NEGATIVE Negative [facility] Comment:All test results mus t [...] use by authorized laboratories.Testing performed on the [employer] GeneXpert utilizingreal-time RT-PCR.All SARS CoV2 and positive influenza A/B results arereported to [facility]. 01/11/2025 9:02 AM EDT 01/11/2025 9:04 AM EDT us Generic External Data Provider LAB MICROBIOLOGY - GENERAL ORDERABLES Final Result [facility] [address] [place] [phone] * High Sensitivity Troponin I (01/11/2025 9:02 AM EDT) Pathologist [facility] TROPONIN I HIGH SENSITIVITY 4.2 <3.5 - 17.0 ng/L [facility] Comment:The Grossman high sens itivity Troponin-I results should beused in conjunction with other diagnostic information suchas ECG, clinical observations and information, and patientsymptoms to aid in the diagnosis of MT. 01/11/2025 9:02 AM EDT 01/11/2025 9:04 AM EDT us Generic External Data Provider LAB BLOOD ORDERAB LES Final Result Performing Organization Address City/[facility]/ZIP Co de Phone Number [facility] [address] [place] [phone] [phone] * (ABNORMAL) Basic Metabolic Panel (01/11/2025 9:02 AM EDT) [facility] Sodium 144 135 - 145 mmol/L [facility] Potassium 4.1 3.3 - 5.1 mmol/L [facility] Chloride 112(H) 96 - 108 mmol/L [facility] Carbon Dioxide 21(L) 22 - 29 mmol/L [facility] Anion Gap 15 12 - 20 [facility] Urea Nitrogen (BUN) 13 9 - 16 mg/dL [facility] Creatinine, Serum 0.67 0.5 - 1.4 mg/dL [facility] Creatinine Clr Calc Pharmacy 83.6 [facility] Comment:Provided height and weight: 165.1 cm,72.575 kg.eGFR (calculated from the MDRD study equation) and eCrCl(calculated from the Cockcroft-Gault equation) are based ondifferent parameters and may not yield comparable results.If eCrCl result is absurd, please check patient'sheight/weight. Estimated Glomerular Filt Rate >60 [facility] Comment:Chronic Kidney Disea se: Estimated GFR < 60 mL/min/1.38m0Xjpxko Kidney Disease: Estimated GFR < 15 mL/min/1.73m2 Glucose 180(H) 60 - 115 mg/dL [facility] Calcium 9.2 8.4 - 10.2 mg/dL [facility] 01/11/2025 9:02 AM EDT 01/11/2025 9:04 AM EDT us Generic External Data Provider LAB BLOOD ORDERAB LES Final Result Performing Organization Address City/[facility]/ZIP Co de Phone Number [facility] [address] [place] [address] [phone] * (ABNORMAL) CBC auto differential (01/11/2025 9:02 AM EDT) White Blood Count 12.9(H) 4.8 - 10.8 X10*3/uL [facility] Red Blood Count 6.04(H) 4.20 - 5.50 X10*6/uL [facility] Hemoglobin 17.1(H) 12.0 - 16.0 g/dl [facility] Hematocrit 53.0(H) 37.0 - 47.0 % [facility] Mean Corpuscular Volume 87.7 80.0 - 98.0 fL [facility] Mean Corpuscular Hemoglobin 28.3 27.0 - 33.0 pg [facility] Mean Corpuscular HGB Conc 32.3 31.0 - 35.0 g/dl [facility] Red Cell Distribution Width 14.6 11.0 - 16.0 % [facility] Platelet Count 216 160 - 400 X10*3/uL [facility] Mean Platelet Volume 10.0 9.4 - 12.3 fL [facility] Neutrophils Percent Auto 74.1(H) 45 - 73 % [facility] Imm Gran Pct Auto 0.7(H) 0.0 - 0.4 % [facility] Lymphocytes Percent Auto 18.1(L) 20 - 40 % [facility] Monocytes Percent Auto 6.0 2 - 11 % [facility] Eosinophils Percent Auto 0.5 0 - 4 % [facility] Basophils Percent Auto 0.6 0 - 2 % [facility] NRBC Pct Auto 0.0 0.0 - 0.2 /100WBC [facility] Neutrophils Absolute Auto 9.6(H) 2.0 - 8.3 x10*3/uL [facility] Imm Gran Abs Auto 0.09(H) 0.00 - 0.03 X10*3/uL [facility] Lymphocytes Absolute Auto 2.3 1.2 - 4.9 X10*3/uL [facility] Monocytes Absolute Auto 0.8 0.1 - 1.2 X10*3/uL [facility] Eosinophils Absolute Auto 0.1 0.0 - 0.4 X10*3/uL [facility] Basophils Absolute Auto 0.1 0.0 - 0.2 X10*3/uL [facility] NRBC Abs Auto 0.000 0.0 - 0.012 X10*3/uL [facility] 01/11/2025 9:02 AM EDT 01/11/2025 9:04 AM EDT us Generic External Data Provider LAB BLOOD ORDERAB LES Final Result Performing Organization Address City/State/[facility] Co de Phone Number [facility] [address] [place] [phone] * XR Chest 2 Views (01/11/2025 9:00 AM EDT) Anatomical Region Laterality Modality Chest Radiographic Ludivina ging 01/11/2025 9:00 AM EDT Narrative 01/11/2025 9:25 AM EDT [address] [address] XRay Report Signed Patient: Marita Zapata MR#: [id number] : 1960 Acct:[id number] Age/Sex: 64 / F ADM Date: 01/11/25 Loc: .ED Attending Dr: Ordering Physician: Generic ED Physician Date of Service: 01/11/25 Procedure(s): XR chest 2V Accession Number(s): [id number] cc: [facility] ED Physician; Name,Bobby GRADY Reason for Exam: SOB EXAMINATION: XR CHEST CLINICAL INFORMATION: SOB COMPARISON: Chest radiograph on December 04, 2024. Chest CT on November 18, 2024. TECHNIQUE: 2 views of the chest were obtained. FINDINGS: Lungs: Persistent chronic atelectasis of the right middle lobe. Remainder lung parenchyma appears clear. Pleura: No pleural effusion or pneumothorax. Heart/Mediastinum: Cardiomediastinal silhouette is within normal limits. Bones/Soft Tissues: No acute findings. XR/XR chest 2V IMPRESSION: No acute abnormality. Electronically signed by: Andriy Lama MD 01/11/2025 09:23 AM EDT RP Dictated By: Andriy Lama MD Signed By: <Electronically signed by Andriy Lama MD in OV> 01/11/25922 DD/ 9 TD/TT: 01/11/25903 Berry Picker Machine Operator: Procedure Note Donotuseinterpreter, Image - 01/11/2025 [place] [address] XRay Report Signed Patient: Marita Zapata MMR#: [id number] : 1960Acct:[id number] Age/Sex: 64 / FADM Date: 01/11/25 Loc: .ED Attending Dr: Ordering Physician: Generic ED Physician Date of Service: 01/11/25 Procedure(s): XR chest 2V Accession Number(s): [id number] cc: Generic ED Physician; Name,Bobby GRADY Reason for Exam: SOB EXAMINATION: XR CHEST CLINICAL INFORMATION: SOB COMPARISON: Chest radiograph on December 04, 2024. Chest CT on November 18, 2024. TECHNIQUE: 2 views of the chest were obtained. FINDINGS: Lungs: Persistent chronic atelectasis of the right middle lobe. Remainder lung parenchyma appears clear. Pleura: No pleural effusion or pneumothorax. Heart/Mediastinum: Cardiomediastinal silhouette is within normal limits. Bones/Soft Tissues: No acute findings. XR/XR chest 2V IMPRESSION: No acute abnormality. Electronically signed by: Andriy Lama MD 01/11/2025 09:23 AM EDT RP Dictated By: Andriy Lama MD Signed By: <Electronically signed by Andriy Lama MD in OV> 01/11/25922 DD/ 9 TD/TT: 01/11/25903 Berry Picker Machine Operator: [facility] External Provider IMG XR PROCEDURES Final Result documented in this encounter Visit Diagnoses Not on filedocumented in this encounter Additional Health Concerns Assessment Noted Time PHQ-9 Depression Total Score: 5 11/03/19 9:53 AM EDT documented as of this encounter Care Teams Mechanic Driver Relationship Specialty Start Date End Date Name, MD Bobby [address] [place] [address] PCP - General Family Medicine 06/01/15 Elo[place] 05/13/24 documented as of this encounter
--- OUTSIDE RECORDS SUMMARY | 2025-01-11 11:45 | XMS_ITS | Encounter Summary ---
Author Organization [employer] Address [address] [place] [address] 7 [place] [address] Care Team Providers Care Soakers Supervisor Name Role Phone Name, Bobby GRADY Primary Care Provider [phone] Inga Magaña PharmD Unavailable [phone] Reason for Visit * Reason Onset Date Comments Prior Authorization 01/21/2023 HumaLOG KWIK PEN 100 UNIT/ML injection Encounter Details Date Type Department Care Team ([facility] st Contact Info) Description 01/21/2023 Telephone [facility] [address] [place], [place] [phone] Name, MD Bobby [address] [place] [address] Prior Authorization (HumaLOG KWIKPEN 100 UNIT/ML injection) [...] Description 01/25/2025 9:30 AM EDT Office Visit [facility] [address] [place] [phone] Name, MD Bobby [address] [place] [phone] 02/10/2025 9:30 AM EST Telemedicine [facility] [address] [place] [phone] Skye Melton RN 03/14/2025 10:00 AM EST Office Visit [facility] [address] [place] [address] Abbey Deng, OD [address] [place] [address] documented as of this encounter Goals Goal Patient Goal Type Associated Problems Recent Progress Patient-Stated? Author Smoking cessation General No Inga Magaña, PharmD documented as of this encounter Visit Diagnoses Not on filedocumented in this encounter Additional Health Concerns Assessment Noted Time PHQ-9 Depression Total Score: 0 03/11/20 22 11:47 AM EST documented as of this encounter Care Teams Soakers Supervisor Relationship Specialty Start Date End Date Name, MD Bobby [address] [place] [address] PCP - General Family Medicine 06/01/15 Inga Magaña, MiltonD [address] [place] [address] Pharmacist Internal Medicine 01/07/23 09/29/23 Elo[place] 05/13/24 documented as of this encounter
--- OUTSIDE RECORDS SUMMARY | 2025-01-11 11:45 | XMS_ITS | Encounter Summary ---
Author Organization [employer] Address [address] [facility] 7t [place] [address] Care Team Providers Care Business System Manager Name Role Phone Name, Bobby GRADY Primary Care Provider [phone] Reason for Visit * Reason Comments Med Refill Encounter Details Date Type Department Care Team ([facility] Contact Info) Description 07/20/2024 Refill [facility] [address] [place] [address] Sherly Pichardo FNP [address] [place] [address] Social History Tobacco Use Types Packs/Day Years [...] 9:30 AM EDT Office Visit [facility] [address] [place] [phone] Name, MD Bobby [address] [place] [address] 02/10/2025 9:30 AM EST Telemedicine [facility] [address] [place] [address] Skye Melton, HODA 03/14/2025 10:00 AM EST Office Visit [facility] [address] [place] [address] Abbey Deng OD [address] [place] [address] documented as of this encounter Goals Goal Patient Goal Type Associated Problems Recent Progress Patient-Stated? Author Smoking cessation General No Inga Magaña, PharmD documented as of this encounter Visit Diagnoses Not on filedocumented in this encounter Additional Health Concerns Assessment Noted Time PHQ-9 Depression Total Score: 0 06/19/19 24 10:09 AM EDT documented as of this encounter Care Teams Business System Manager Relationship Specialty Start Date End Date Name, MD Bobby [address] [place] [address] PCP - General Family Medicine 06/01/15 [place] 05/13/24 documented as of this encounter
--- OUTSIDE RECORDS SUMMARY | 2025-01-11 11:45 | XMS_ITS | Encounter Summary ---
Author Organization [employer] Address 75 [facility] 7t [place] [address] Care Team Providers Care Field Operations Manager Name Role Phone Name, Bobby GRADY Primary Care Provider [phone] Inga Magaña PharmD Unavailable [phone] Reason for Visit * Reason Onset Date Comments Med Refill 05/26/2023 Encounter Details Date Type Department Care Team (Late st Contact Info) Description 05/26/2023 Telephone [facility] [address] [place] [address] Name, MD Bobby [address] [place] [address] Med Refill Social History Tobacco Use Types [...] 7.5-325 MG tablet To be sent to: [facility] - [place], [place] - [address] [place] [address] documented in this encounter Plan of Treatment Upcoming Encounters Date Type Department Care Team ([facility] st Contact Info) Description 01/25/2025 9:30 AM EDT Office Visit [facility] [address] [place] [address] Name, MD Bobby [address] [place] [address] 02/10/2025 9:30 AM EST Telemedicine [facility] [address] [place] [address] Skye Melton, RN 03/14/2025 10:00 AM EST Office Visit [facility] [address] [place] [address] Abbey Deng, KIKA [address] [place] [address] documented as of this encounter Goals Goal Patient Goal Type Associated Problems Recent Progress Patient-Stated? Author Smoking cessation General No Inga Magaña, PharmD documented as of this encounter Visit Diagnoses Not on filedocumented in this encounter Additional Health Concerns Assessment Noted Time PHQ-9 Depression Total Score: 0 03/11/20 22 11:47 AM EST documented as of this encounter Care Teams Field Operations Manager Relationship Specialty Start Date End Date Name, MD Bobby [address] [place] [address] PCP - General Family Medicine 06/01/15 Inga Magaña, PharmD [address] [place] [address] Pharmacist Internal Medicine 01/07/23 09/29/23 Eloina 05/13/24 documented as of this encounter
--- OUTSIDE RECORDS SUMMARY | 2025-01-11 11:45 | XMS_ITS | Encounter Summary ---
Author Organization [employer] Address 75 [facility] 7t [place] [address] Care Team Providers Care Tooth Cutter Spur Name Role Phone Name, Bobby GRADY Primary Care Provider [phone] Inga Magaña PharmD Unavailable [phone] Reason for Visit * Reason Onset Date Comments Med Refill 01/20/2023 Encounter Details Date Type Department Care Team ([facility] st Contact Info) Description 01/20/2023 Telephone [facility] [address] [place] [address] Name, MD Bobby [address] [place] [address] Med Refill Social History Tobacco Use Types [...] Description 01/25/2025 9:30 AM EDT Office Visit [facility] [address] [place] [address] Name, MD Bobby [address] [place] [address] 02/10/2025 9:30 AM EST Telemedicine [facility] [address] [place] [address] [phone] Skye Melton, RN 03/14/2025 10:00 AM EST Office Visit [facility] OPT[facility] [address] [place], [place] [phone] Abbey Deng OD [address] [place] [address] documented as of this encounter Goals Goal Patient Goal Type Associated Problems Recent Progress Patient-Stated? Author Smoking cessation General No Inga Magaña, Lucio documented as of this encounter Visit Diagnoses Not on filedocumented in this encounter Additional Health Concerns Assessment Noted Time PHQ-9 Depression Total Score: 0 03/11/20 22 11:47 AM EST documented as of this encounter Care Teams Tooth Cutter Spur Relationship Specialty Start Date End Date Name, MD Bobby [address] [place] [address] PCP - General Family Medicine 06/01/15 Inga Magaña, MiltonD [address] [place] [address] Pharmacist Internal Medicine 01/07/23 09/29/23 Eloina 05/13/24 documented as of this encounter
--- OUTSIDE RECORDS SUMMARY | 2025-01-11 11:45 | XMS_ITS | Clinical Summary ---
Author Organization [address] Address [address] [place] [phone] Phone Care Team Providers Care Public Address Systems Mechanic Name Role Phone Name, Bobby GRADY Primary Care Provider [phone] Surgical History Surgery Date Site/Laterality Comments CHOLECYSTECTOMY PROCEDURE: CT CHOLECYSTECTOMY OTHER SURGICAL HISTORY PROCEDURE: HISTORY OTHER; COMMENT: Cardiac stent KIDNEY STONE SURGERY PROCEDURE: CT NEPHROLITHOTOMY REMOVAL CALCULUS BREAST LUMPECTOMY Right PROCEDURE: HISTORICAL BREAST LUMPECTOMY; COMMENT: benign Medical History Medical History Date Comments Coronary atherosclerosis of unspecified type of vessel, [place] or graft 07/07/2011 DX:Coronary atherosclerosis of unspecified type of vessel, [place] or graft Hypertension 07/07/2011 DX:Hypertension Historical Medical DX 07/07/2011 DX:Hyperli pidemia LDL goal < 70 DM2 (diabetes mellitus, type 2) ([facility] V24, [facility] V28) 07/07/2011 DX:DM2 (diabetes mellitus, type 2) ([facility]) Tobacco abuse 07/07/2011 DX:Tobacco abuse Allergy-induced asthma 07/07/2011 DX:Allerg y-induced asthma Family History Medical History Relation Name Comments Breast cancer Aunt 1 maternal aunt, at 60 Breast cancer Aunt 2 paternal aunt, at 60 Other: way inspector ca Aunt 2 Colon cancer Brother at [...] Health Maintenance Due Date Last Done Comments Colorectal Cancer Screening: Colonoscopy 1959 Diabetes: Annual Foot Exam 12/30/1969 Diabetes: Annual Retina Eye Exam 12/30/1969 Hepatitis A Vaccines (1 of 2 - Risk 2-dose series) 12/30/1978 Cervical Cancer Screening: Pap Smear 12/30/1980 RSV Immunization Adult Patients (1 - Risk 50-74 years 1-dose series) 12/30/2009 Breast Cancer Screening 04/24/2023 04/24/2021 Diabetes: Annual Urine Albumin-Creatinine Ratio (uACR) 06/05/2023 Hepatitis C Screening 06/05/2023 Osteoporosis Screening (Bone Density Screening) 06/05/2023 Social Influencers of Health Screening 06/05/2023 Depression Screening 03/30/2024 Diabetes: Blood Sugar Control Test (HGBA1C) 08/03/2024 02/04/2024 Influenza Vaccine (#1) 2024 , 01/07/2023, 03/11/2022, Additional history exists COVID-19 Vaccine ( season) 2024 01/05/2024, 03/12/2023, 03/11/2022, Additional history exists Falls Risk Assessment 12/30/2024 Diabetes: Annual GFR (Glomerular Filtration Rate) 05/12/2025 05/12/2024, 05/05/2024, 04/29/2024, Additional history exists Hypertension/CHF/CAD Annual BMP Blood Test 05/12/2025 05/12/2024, 05/05/2024, 04/29/2024, Additional history exists Cholesterol Screening (Lipid Panel) 12/28/2028 12/29/2023 DTaP,Tdap,and Td Vaccines (4 - Td or Tdap) 11/07/2032 11/07/2022, 06/12/2009, 06/12/2009 Pneumococcal Vaccine: 50+ Years Completed 11/07/2022, 05/23/2019, 03/30/2003 Zoster Vaccines Completed 01/07/2023, 11/07/2022 HIB Vaccines Aged Out No longer eligi [...] 8:21 AM EST Atherosclerotic heart disease of [place] coronary artery without angina pectoris from Last 3 Months or Most Recently Relevant to Health Maintenance Results * (ABNORMAL) Basic metabolic panel (05/12/2024 8:21 AM EST) Sodium 143 133 - 145 mmol/L LAB CHEMISTRY METHOD 05/12/2024 11:[address] [facility] Potassium 3.6 3.5 - 5.5 mmol/L LAB CHEMISTRY METHOD 05/12/2024 11:[address] [facility] Chloride 109 96 - 110 mmol/L LAB CHEMISTRY METHOD 05/12/2024 11:[address] [facility] CO2 31 21 - 32 mmol/L LAB CHEMISTRY METHOD 05/12/2024 11:[address] [facility] Anion Gap 3 3 - 11 LAB CHEMISTRY METHOD 05/12/2024 11:[address] [facility] Glucose 95 70 - 100 mg/dL LAB CHEMISTRY METHOD 05/12/2024 11:[address] [facility] BUN 21 5 - 25 mg/dL LAB CHEMISTRY METHOD 05/12/2024 11:[address] [facility] Creatinine 0.80 0.50 - 1.10 mg/dL LAB CHEMISTRY METHOD 05/12/2024 11:[address] [facility] eGFR 82 >=60 mL/min/1. 73m2 LAB CHEMISTRY METHOD 05/12/2024 11:[address] [facility] Comment:Calculation based on the Chronic [...] MD LAB BLOOD ORDERABLES Final Resul t [facility] [address] [place] [address], from Last 3 Months or Most Recently Relevant to Health Maintenance Insurance [facility] Member Subscriber Plan / Payer (Ef fective 2022-Present) Name:Marita Lawrence Relation to Subscriber:Self Name:Marita Lawrence Payer ID:[id number] Group ID:[id number] Type:Not on file Address: [facility] [facility] [place] [address] Care Teams Public Address Systems Mechanic Relationship Specialty Start Date End Date Name, MD Bobby [address] [place], [place] PCP - General Internal Medicine 04/01/18
--- OUTSIDE RECORDS SUMMARY | 2025-01-11 11:45 | XMS_ITS | Encounter Summary ---
Author Organization [employer] Address [address] [place] [address] Care Team Providers Care Admin Dir Name Role Phone Name, Bobby GRADY Primary Care Provider Encounter Details Date Type Department Care Team (Latest Contact Info) Description 05/04/2024 Lab Requisition [facility] Main Lab [address] [place] [address] Yared Weaver MD [address] [place] [address], [phone] 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 Social History [...] 5:05 AM EST 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 BASIC METABOLIC PANEL Routine 05/05/2024 5:05 AM EST 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 documented in this encounter Results * (ABNORMAL) Basic metabolic panel (05/05/2024 5:05 AM EST) Sodium 144 133 - 145 mmol/L LAB CHEMISTRY METHOD 05/05/2024 11:28 AM EST [facility] Potassium 3.9 3.5 - 5.5 mmol/L LAB CHEMISTRY METHOD 05/05/2024 11:28 AM [facility] Chloride 103 96 - 110 mmol/L LAB CHEMISTRY METHOD 05/05/2024 11:28 AM [facility] CO2 34(H) 21 - 32 mmol/L LAB CHEMISTRY METHOD 05/05/2024 11:28 AM [facility] Anion Gap 7 3 - 11 LAB CHEMISTRY METHOD 05/05/2024 11:28 AM [facility] Glucose 101(H) 70 - 100 mg/dL LAB CHEMISTRY METHOD 05/05/2024 11:28 AM [facility] BUN 19 5 - 25 mg/dL LAB CHEMISTRY METHOD 05/05/2024 11:28 AM [facility] Creatinine 0.71 0.50 - 1.10 mg/dL LAB CHEMISTRY METHOD 05/05/2024 11:28 AM [facility] eGFR 95 >=60 mL/min/1. 73m2 LAB CHEMISTRY METHOD 05/05/2024 11:28 AM [facility] Comment:Calculation based on the Chronic Kidney Disease Epidemiology Collaboration (CKD-EPI) equation refit without adjustment for race. BUN/Creatinine Ratio 26.8 LAB CHEMISTRY METHOD 05/05/2024 11:28 AM [facility] Calcium 8.0(L) 8.5 - 10.5 mg/dL LAB CHEMISTRY METHOD 05/05/2024 11:28 AM [facility] Blood Venous blood specimen / Unknown Venipuncture / Unknown 05/05/2024 5:05 AM EST 05/05/2024 9:37 AM EST us Yared Weaver MD LAB BLOOD ORDERABLES Final Resul t [facility] [address] [place] [address], * (ABNORMAL) Complete blood count (05/05/2024 5:05 AM EST) [facility] WBC 13.8(H) 4.8 - 10.8 K/mcL LAB HEMETOLOGY METHOD 05/05/2024 11:24 AM [facility] RBC 5.30(H) 3.80 - 4.80 M/mcL LAB HEMETOLOGY METHOD 05/05/2024 11:24 AM [facility] Hemoglobin 15.0 11.5 - 16.0 g/dL LAB HEMETOLOGY METHOD 05/05/2024 11:24 AM [facility] Hematocrit 47.2(H) 35.0 - 47.0 % LAB HEMETOLOGY METHOD 05/05/2024 11:24 AM [facility] MCV 89.6 79.0 - 98.0 FL LAB HEMETOLOGY METHOD 05/05/2024 11:24 AM [facility] MCH 28.5 27.0 - 32.0 pcg LAB HEMETOLOGY METHOD 05/05/2024 11:24 AM [facility] MCHC 31.8(L) 32.0 - 37.0 g/dL LAB HEMETOLOGY METHOD 05/05/2024 11:24 AM [facility] RDW 15.9(H) 11.0 - 15.0 % LAB HEMETOLOGY METHOD 05/05/2024 11:24 AM [facility] Platelets 184 130 - 400 K/mcL LAB HEMETOLOGY METHOD 05/05/2024 11:24 AM [facility] MPV 12.0(H) 7.0 - 11.0 FL LAB HEMETOLOGY METHOD 05/05/2024 11:24 AM [facility] NRBC 0.0 <1.0 % LAB HEMETOLOGY METHOD 05/05/2024 11:24 AM [facility] NRBC Absolute 0.00 <0.10 K/mcL LAB HEMETOLOGY METHOD 05/05/2024 11:24 AM EST [facility] Blood Venous blood specimen / Unknown Venipuncture / Unknown 05/05/2024 5:05 AM EST 05/05/2024 9:37 AM EST us Yared Weaver MD LAB BLOOD ORDERABLES Final Resul t [facility] [address] [place] [address], documented in this encounter Visit Diagnoses Diagnosis 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
--- OUTSIDE RECORDS SUMMARY | 2025-01-11 11:45 | XMS_ITS | Encounter Summary ---
Author Organization [employer] Address 75 [facility] 7t [place] [address] Care Team Providers Care Classification Officer Name Role Phone Name, Bobby GRADY Primary Care Provider [phone] Inga Magaña PharmD Unavailable [phone] Reason for Visit * Reason Comments Med Refill Encounter Details Date Type Department Care Team ([facility] st Contact Info) Description 04/28/2023 Refill [facility] [address] [place] [address] Name, MD Bobby [address] [place] [address] Social History Tobacco Use Types Packs/Day Years [...] 01/25/2025 9:30 AM EDT Office Visit [facility] [address] [place] [address] Name, MD Bobby [address] [place] [address] 02/10/2025 9:30 AM EST Telemedicine [facility] [address] [place] [address] Skye Melton, HODA 03/14/2025 10:00 AM EST Office Visit [facility] [address] [place] [address] Abbey Deng, OD [address] [place] [address] documented as of this encounter Goals Goal Patient Goal Type Associated Problems Recent Progress Patient-Stated? Author Smoking cessation General No Inga Magaña, PharmD documented as of this encounter Visit Diagnoses Not on filedocumented in this encounter Additional Health Concerns Assessment Noted Time PHQ-9 Depression Total Score: 0 03/11/20 11:47 AM EST documented as of this encounter Care Teams Classification Officer Relationship Specialty Start Date End Date NameBobby MD [address] [place] [address] PCP - General Family Medicine 06/01/15 Inga Magaña, PharmD [address] [place] [address] Pharmacist Internal Medicine 01/07/23 09/29/23 Eloina 05/13/24 documented as of this encounter
--- OUTSIDE RECORDS SUMMARY | 2025-01-11 11:45 | XMS_ITS | Encounter Summary ---
Author Organization [employer] Address [address] [place] [address] [place], [place] [address] Care Team Providers Care Zone Manager Name Role Phone Name, Bobby GRADY Primary Care Provider [phone] Inga Magaña PharmD Unavailable [phone] Reason for Referral * Imaging (Routine) - Closed Specialty Diagnoses / Procedures Referred By Contac t Referred To Contact Diagnoses Other ovarian cyst, right side Procedures US Pelvis Transvaginal Monisha Linton CNM [address] [place] [address] Phone: tel: fax: [facility] MRI and CT Scan [address] [place] [address] Phone: tel: fax: Referral ID Status Reason Start Date Expiration Date Visits Re quested Visits Authorized [id number] Closed 04/01/2022 09/28/2022 1 1 Encounter Details Date Type Department Care Team ([facility] st Contact Info) Description 04/01/2022 Orders Only [facility] [address] [place], [place] [phone] Monisha Linton CNM [address] [place], [place] [phone] Other ovarian cyst, right side (Primary Dx) [...] Description 01/25/2025 9:30 AM EDT Office Visit [facility] [address] [place] [address] Name, MD Bobby [address] [place] [address] 02/10/2025 9:30 AM EST Telemedicine [facility] [address] [place] [address] Skye Melton, HODA 03/14/2025 10:00 AM EST Office Visit [facility] [address] [place] [address] Abbey Deng, OD [address] [place] [address] Scheduled Orders Name Type Priority Associated Diagnoses [...] documented as of this encounter Care Teams Zone Manager Relationship Specialty Start Date End Date Name, MD Bobby [address] [place] [address] PCP - General Family Medicine 06/01/15 Inga Magaña, MiltonD [address] [place] [address] Pharmacist Internal Medicine 01/07/23 09/29/23 Eloina 05/13/24 documented as of this encounter
--- OUTSIDE RECORDS SUMMARY | 2025-01-11 11:45 | XMS_ITS | Encounter Summary ---
Author Organization [employer] Address [address] [place] [address] [address] [address] Care Team Providers Care Book Repairer Name Role Phone Name, Bobby GRADY Primary Care Provider Inga Magaña PharmD Unavailable [phone] Reason for Visit * Reason Comments Med Refill Encounter Details Date Type Department Care Team ([facility] Contact Info) Description 11/18/2022 Refill [facility] [address] [place], [place] [phone] Sherly Pichardo, GEETA [address] [place], [place] [phone] Type 2 diabetes mellitus without complications (CMS/[facility]) Social History Tobacco Use Types [...] Upcoming Encounters Date Type Department Care Team ([facility] Contact Info) Description 01/25/2025 9:30 AM EDT Office Visit [facility] [address] [place] [address] Name, MD Bobby [address] [place] [address] 02/10/2025 9:30 AM EST Telemedicine [facility] [address] [place] [address] Skye Melton, RN 03/14/2025 10:00 AM EST Office Visit [facility] [address] [place] [address] Abbey Deng, OD [address] [place] [address] documented as of this encounter Visit Diagnoses Diagnosis Type 2 diabetes mellitus without complications (HCC) documented in this encounter Additional Health Concerns Assessment Noted Time PHQ-9 Depression Total Score: 0 03/11/20 11:47 AM EST documented as of this encounter Care Teams Book Repairer Relationship Specialty Start Date End Date Name, MD Bobby [address] [place] [address] PCP - General Family Medicine 06/01/15 Inga Magaña PharmD [address] [place] [address] Pharmacist Internal Medicine 01/07/23 09/29/23 Eloina 05/13/24 documented as of this encounter
--- OUTSIDE RECORDS SUMMARY | 2025-01-11 11:45 | XMS_ITS | Encounter Summary ---
Author Organization [employer] Address [address] [place] [address] 7 [place] [address] Care Team Providers Care Memorial Designer Name Role Phone Name, Bobby GRADY Primary Care Provider [phone] Reason for Visit * Reason Onset Date Comments Hospital Follow-up 05/17/2024 Encounter Details Date Type Department Care Team ([facility] st Contact Info) Description 05/17/2024 Telephone [facility] [address] [place] [address] Name, MD Bobby [address] [place] [address] Hospital Follow-up Social History Tobacco Use Types [...] from pt requesting a HDF appt. Hospital: [facility] transported Date of admission: 04/06/2024 Discharge date: 05/12/2024 Diagnosed: RSV , Influenza A+B , COPD *Send message to [place] Clinical Care Coordinators documented in this encounter Plan of Treatment Upcoming Encounters Date Type Department Care Team (Late st Contact Info) Description 01/25/2025 9:30 AM EDT Office Visit [facility] [address] [place] [address] Name, MD Bobby [address] [place] [address] 02/10/2025 9:30 AM EST Telemedicine [facility] [address] [place] [address] Skye Melton, RN 03/14/2025 10:00 AM EST Office Visit [facility] [address] [place] [address] Abbey Deng, OD [address] [place] [address] documented as of this encounter Goals Goal Patient Goal Type Associated Problems Recent Progress Patient-Stated? Author Smoking cessation General Inga Radford, PharmD documented as of this encounter Visit Diagnoses Not on filedocumented in this encounter Additional Health Concerns Assessment Noted Time PHQ-9 Depression Total Score: 0 06/19/19 24 10:09 AM EDT documented as of this encounter Care Teams Memorial Designer Relationship Specialty Start Date End Date Name, MD Bobby [address] [place] [address] PCP - General Family Medicine 06/01/15 Eloina 05/13/24 documented as of this encounter
--- OUTSIDE RECORDS SUMMARY | 2025-01-11 11:45 | XMS_ITS | Encounter Summary ---
Author Organization [employer] Address 75 [facility] 7t [place] [address] Care Team Providers Care Cloth Shrinking Tester Name Role Phone Name, Bobby GRADY Primary Care Provider [phone] Reason for Visit * Reason Comments Med Refill Encounter Details Date Type Department Care Team ([facility] Contact Info) Description 01/10/2025 Refill [facility] [address] [place] [address] Name, MD Bobby [address] [place] [address] Lumbar radiculopathy Social History Tobacco Use Types [...] Office Visit [facility] MEDICINE [address] [place] [address] Name, MD Bobby [address] [place] [address] 02/10/2025 9:30 AM EST Telemedicine [facility] MEDICINE [address] [place] [address] Skye Melton, HODA 03/14/2025 10:00 AM EST Office Visit [facility] OPTOMETRY [address] [place] [address] Abbey Deng OD [address] [place] [address] documented as of this encounter Goals Goal [...] documented as of this encounter Care Teams Cloth Shrinking Tester Relationship Specialty Start Date End Date Name, MD Bobby [address] [place] [address] PCP - General Family Medicine 06/01/15 Eloina 05/13/24 documented as of this encounter
--- OUTSIDE RECORDS SUMMARY | 2025-01-11 11:45 | XMS_ITS | Encounter Summary ---
Author Organization [employer] Address [address] [place] [address] [address] [place] [address] Care Team Providers Care Clothing Busheler Name Role Phone Name, Bboby GRADY Primary Care Provider [phone] Inga Magaña PharmD Unavailable Encounter Details Date Type Department Care Team (Late Contact Info) Description 09/01/2022 Abstract [facility] [address] [place] [address] NameBobby MD [address] [place] [address] Social History Tobacco Use Types Packs/Day Years [...] EDT Office Visit [facility] [address] [place] [address] [phone] Bobby David MD [address] [place] [address] 02/10/2025 9:30 AM EST Telemedicine [facility] [address] [place] [address] Skye Melton, RN 03/14/2025 10:00 AM EST Office Visit [facility] OPTOMETRY [address] [place] [address] Patricksophy Abbey, OD [address] [place] [address] documented as of this encounter Visit Diagnoses Not on filedocumented in this encounter Additional Health Concerns Assessment Noted Time PHQ-9 Depression Total Score: 0 03/11/20 22 11:47 AM EST documented as of this encounter Care Teams Clothing Busheler Relationship Specialty Start Date End Date Name, MD Bobby [address] [place] [address] PCP - General Family Medicine 06/01/15 Inga Magaña, Lucio [address] [place] [address] Pharmacist Internal Medicine 01/07/23 09/29/23 Eloina 05/13/24 documented as of this encounter
--- OUTSIDE RECORDS SUMMARY | 2025-01-11 11:45 | XMS_ITS | Encounter Summary ---
Author Organization [employer] Address [address] [place] [address] Care Team Providers Care Librarian Special Library Name Role Phone Name, Bobby GRADY Primary Care Provider [phone] Encounter Details Date Type Department Care Team (Latest Contact Info) Description 05/11/2024 Lab Requisition [facility] - Main Lab [address] [place] [address] Yared Weaver MD [address] [place] [address], [phone] Atherosclerotic heart disease of [place] coronary artery without angina pectoris Social History [...] 8:21 AM EST Atherosclerotic heart disease of [place] coronary artery without angina pectoris BASIC METABOLIC PANEL Routine 05/12/2024 8:21 AM EST Atherosclerotic heart disease of [place]ski coronary artery without angina pectoris documented in this encounter Results * (ABNORMAL) Basic metabolic panel (05/12/2024 8:21 AM EST) Sodium 143 133 - 145 mmol/L LAB CHEMISTRY METHOD 05/12/2024 11:22 AM EST [facility] Potassium 3.6 3.5 - 5.5 mmol/L LAB CHEMISTRY METHOD 05/12/2024 11:22 AM [facility] Chloride 109 96 - 110 mmol/L LAB CHEMISTRY METHOD 05/12/2024 11:22 AM [facility] CO2 31 21 - 32 mmol/L LAB CHEMISTRY METHOD 05/12/2024 11:22 AM [facility] Anion Gap 3 3 - 11 LAB CHEMISTRY METHOD 05/12/2024 11:22 AM [facility] Glucose 95 70 - 100 mg/dL LAB CHEMISTRY METHOD 05/12/2024 11:22 AM [facility] BUN 21 5 - 25 mg/dL LAB CHEMISTRY METHOD 05/12/2024 11:22 AM [facility] Creatinine 0.80 0.50 - 1.10 mg/dL LAB CHEMISTRY METHOD 05/12/2024 11:22 AM [facility] eGFR 82 >=60 mL/min/1. 73m2 LAB CHEMISTRY METHOD 05/12/2024 11:22 AM [facility] Comment:Calculation based on the Chronic Kidney Disease Epidemiology Collaboration (CKD-EPI) equation refit without adjustment for race. BUN/Creatinine Ratio 26.3 LAB CHEMISTRY METHOD 05/12/2024 11:22 AM [facility] Calcium 8.0(L) 8.5 - 10.5 mg/dL LAB CHEMISTRY METHOD 05/12/2024 11:22 AM [facility] Blood Venous blood specimen / Unknown Venipuncture / Unknown 05/12/2024 8:21 AM EST 05/12/2024 10:56 AM EST us Yared Weaver MD LAB BLOOD ORDERABLES Final Resul t [facility] [address] [place] [address], * (ABNORMAL) Complete blood count (05/12/2024 8:21 AM EST) [facility] WBC 12.5(H) 4.8 - 10.8 K/mcL LAB HEMETOLOGY METHOD 05/12/2024 11:10 AM [facility] RBC 5.10(H) 3.80 - 4.80 M/mcL LAB HEMETOLOGY METHOD 05/12/2024 11:10 AM [facility] Hemoglobin 14.6 11.5 - 16.0 g/dL LAB HEMETOLOGY METHOD 05/12/2024 11:10 AM [facility] Hematocrit 46.7 35.0 - 47.0 % LAB HEMETOLOGY METHOD 05/12/2024 11:10 AM [facility] MCV 91.4 79.0 - 98.0 FL LAB HEMETOLOGY METHOD 05/12/2024 11:10 AM [facility] MCH 28.6 27.0 - 32.0 pcg LAB HEMETOLOGY METHOD 05/12/2024 11:10 AM [facility] MCHC 31.3(L) 32.0 - 37.0 g/dL LAB HEMETOLOGY METHOD 05/12/2024 11:10 AM [facility] RDW 16.3(H) 11.0 - 15.0 % LAB HEMETOLOGY METHOD 05/12/2024 11:10 AM [facility] Platelets 209 130 - 400 K/mcL LAB HEMETOLOGY METHOD 05/12/2024 11:10 AM [facility] MPV 10.7 7.0 - 11.0 FL LAB HEMETOLOGY METHOD 05/12/2024 11:10 AM [facility] NRBC 0.0 <1.0 % LAB HEMETOLOGY METHOD 05/12/2024 11:10 AM [facility] NRBC Absolute 0.00 <0.10 K/mcL LAB HEMETOLOGY METHOD 05/12/2024 11:[address] [facility] Blood Venous blood specimen / Unknown Venipuncture / Unknown 05/12/2024 8:21 AM EST 05/12/2024 10:56 AM EST us Yared Weaver MD LAB BLOOD ORDERABLES Final Resul t [facility] [address] [place] [address], documented in this encounter Visit Diagnoses Diagnosis Atherosclerotic heart disease of [place] coronary artery without angina pectoris documented in this encounter Care Teams Librarian Special Library Relationship Specialty Start Date End Date Name, MD Bobby [address] [place], [place] PCP - General Internal Medicine 04/01/18 documented as of this encounter
--- OUTSIDE RECORDS SUMMARY | 2025-01-11 11:45 | XMS_ITS | Encounter Summary ---
Author Organization [employer] Address [address] [facility] 7t [place] [address] Care Team Providers Care Parking Lot Supervisor Name Role Phone Name, Bobby GRADY Primary Care Provider [phone] Inga Magaña PharmD Unavailable [phone] Reason for Visit * Reason Comments Med Change Request Encounter Details Date Type Department Care Team ([facility] st Contact Info) Description 06/09/2023 Refill [facility] [address] [place] [address] Name, MD Bobby [address] [place] [address] Social History Tobacco Use Types Packs/Day Years [...] 01/25/2025 9:30 AM EDT Office Visit [facility] [address] [place] [address] Name, MD Bobby [address] [place] [address] 02/10/2025 9:30 AM EST Telemedicine [facility] [address] [place] [address] Skye Melton, HODA 03/14/2025 10:00 AM EST Office Visit [facility] OPTOMET[facility] [address] [place] [address] Abbey Deng, OD [address] [place] [address] documented as of this encounter Goals Goal Patient Goal Type Associated Problems Recent Progress Patient-Stated? Author Smoking cessation General No Inga Magaña, PharmD documented as of this encounter Visit Diagnoses Not on filedocumented in this encounter Additional Health Concerns Assessment Noted Time PHQ-9 Depression Total Score: 0 03/11/20 11:47 AM EST documented as of this encounter Care Teams Parking Lot Supervisor Relationship Specialty Start Date End Date NameBobby MD [address] [place] [address] PCP - General Family Medicine 06/01/15 Inga Magñaa, PharmD [address] [place] [address] Pharmacist Internal Medicine 01/07/23 09/29/23 Eloina 05/13/24 documented as of this encounter
--- OUTSIDE RECORDS SUMMARY | 2025-01-11 11:45 | XMS_ITS | Encounter Summary ---
Author Organization [employer] Address [address] [place] [address] 7[address] [place] [address] Care Team Providers Care Flue Lining Dipper Name Role Phone Name, Bobby GRADY Primary Care Provider [phone] Inga Magaña PharmD Unavailable Reason for Visit * Reason Comments Med Refill Encounter Details Date Type Department Care Team (Late st Contact Info) Description 11/18/2022 Refill [facility] [address] [place], [place] [phone] Name, MD Bobby [address] [place] [address] Type 2 diabetes mellitus without complications (CMS/[facility]) Social History Tobacco Use Types [...] EDT Office Visit [facility] [address] [place] [address] Name, MD Bobby [address] [place] [address] 02/10/2025 9:30 AM EST Telemedicine [facility] [address] [place] [address] Skye Melton, RN 03/14/2025 10:00 AM EST Office Visit [facility] OPTOMETRY [address] [place] [address] Abbey Deng, OD [address] [place] [address] documented as of this encounter Visit Diagnoses Diagnosis Type 2 diabetes mellitus without complications (HCC) documented in this encounter Additional Health Concerns Assessment Noted Time PHQ-9 Depression Total Score: 0 03/11/20 11:47 AM EST documented as of this encounter Care Teams Flue Lining Dipper Relationship Specialty Start Date End Date Name, MD Bobby [address] [place] [address] PCP - General Family Medicine 06/01/15 Inga Magaña PharmD [address] [place] [address] Pharmacist Internal Medicine 01/07/23 09/29/23 Eloina 05/13/24 documented as of this encounter
--- OUTSIDE RECORDS SUMMARY | 2025-01-11 11:45 | XMS_ITS | Encounter Summary ---
Author Organization [employer] Address [address] [place] [address] [address] [address] Care Team Providers Care Tumbling And Rolling Supervisor Name Role Phone Name, Bobby GRADY Primary Care Provider [phone] Inga Magaña PharmD Unavailable Encounter Details Date Type Department Care Team (Late st Contact Info) Description 03/05/2022 Telephone [facility] [address] [place] [address] Monisha Linton CNM [address] [place] [address] Social History Tobacco Use Types Packs/Day Years [...] Description 01/25/2025 9:30 AM EDT Office Visit [facility] [address] [place] [address] Name, MD Bobby [address] [place] [address] 02/10/2025 9:30 AM EST Telemedicine [facility] [address] [place] [phone] Skye Melton, HODA 03/14/2025 10:00 AM EST Office Visit [facility] OPTOMETRY [address] [place], [place] [phone] Abbey Deng, OD [address] [place] [address] documented as of this encounter Visit Diagnoses Not on filedocumented in this encounter Care Teams Tumbling And Rolling Supervisor Relationship Specialty Start Date End Date Name, MD Bobby [address] [place] [address] PCP - General Family Medicine 06/01/15 Inga Magaña PharmD [address] [place] [address] [phone] Pharmacist Internal Medicine 01/07/23 09/29/23 Eloina 05/13/24 documented as of this encounter
--- OUTSIDE RECORDS SUMMARY | 2025-01-11 11:45 | XMS_ITS | Encounter Summary ---
Author Organization [employer] Address [address] [place] [address] [place] [address] Care Team Providers Care Signal Inspector Name Role Phone Bobby David MD Primary Care Provider Inga Magaña PharmD Unavailable Reason for Visit * Reason Onset Date Comments Referral 04/23/2022 Encounter Details Date Type Department Care Team (Late st Contact Info) Description 04/23/2022 Telephone [facility] [address] [place] [address] NameBobby MD [address] [place] [address] Referral Social History Tobacco Use Types Packs/Day [...] Pt wants referral to see Gastroenterology in [facility], as pt has hx of colon cancer and has been waiting 10 years for colonoscopy. Pt stated June at [facility] has an apptset up for pt on May 13 and needs referral placed before then. Pt verbalized understanding and denied having any further questions or concerns at this time. * Telephone Encounter - Octavio Holliday - 04/23/2022 11:46 AM EST Tc from pt requesting an referral to see an gastroenterology at [facility] Please contact pt at [phone] documented in this encounter Plan of Treatment Upcoming Encounters Date Type Department Care Team (Late st Contact Info) Description 01/25/2025 9:30 AM EDT Office Visit [facility] [address] [place] [address] Name, MD Bobby [address] [place] [address] 02/10/2025 9:30 AM EST Telemedicine [facility] [address] [place] [address] Skye Melton RN 03/14/2025 10:00 AM EST Office Visit [facility] OPTOMETRY [address] [place] [address] Abbey Deng, OD [address] [place] [address] documented as of this encounter Visit Diagnoses Diagnosis History of colon polyps- Primary Family history of colon cancer Family history of malignant neoplasm of gastrointestinal tract documented in this encounter Additional Health Concerns Assessment Noted Time PHQ-9 Depression Total Score: 0 03/11/20 11:47 AM EST documented as of this encounter Care Teams Signal Inspector Relationship Specialty Start Date End Date Name, MD Bobby [address] [place] [address] [phone] PCP - General Family Medicine 06/01/15 Inga Magaña, MiltonD [address] [place] [address] [place] [phone] Pharmacist Internal Medicine 01/07/23 09/29/23 Eloina 05/13/24 documented as of this encounter
--- OUTSIDE RECORDS SUMMARY | 2025-01-11 11:45 | XMS_ITS | Encounter Summary ---
Author Organization [employer] Address [address] [place] [address] Care Team Providers Care Ginseng Farmer Name Role Phone Name, Bobby GRADY Primary Care Provider [phone] Encounter Details Date Type Department Care Team (Late st Contact Info) Description 05/08/2024 Lab Requisition [facility] - Main Lab [address] [place] [address] Yared Weaver MD [address] [place] [address], [phone] Hypothyroidism, unspecified Social History Tobacco Use [...] CHEMISTRY METHOD 05/09/2024 1:03 PM EST [facility] Blood Venous blood specimen / Unknown Venipuncture / Unknown 05/09/2024 5:33 AM EST 05/09/2024 11:27 AM EST us Yared Weaver MD LAB BLOOD ORDERABLES Final Resul t [facility] [address] [place] [address], documented in this encounter Visit Diagnoses Diagnosis Hypothyroidism, unspecified documented in this encounter Care Teams Ginseng Farmer Relationship Specialty Start Date End Date Name, MD Bobby [address] [place], [place] PCP - General Internal Medicine 04/01/18 documented as of this encounter
--- OUTSIDE RECORDS SUMMARY | 2025-01-11 11:46 | XMS_ITS | Encounter Summary ---
Author Organization [employer] Address [address] [place] [address] 7[address] [place] [address] Care Team Providers Care Drywall Installer Name Role Phone Name, Bobby GRADY Primary Care Provider [phone] Inga Magaña PharmD Unavailable [phone] Reason for Visit * Reason Comments Med Refill Encounter Details Date Type Department Care Team (Late st Contact Info) Description 10/03/2022 Refill [facility] [address] [place] [address] Name, MD Bobby [address] [place] [address] Lumbar radiculopathy Social History Tobacco Use Types [...] Description 01/25/2025 9:30 AM EDT Office Visit [facility] [address] [place] [phone] Name, MD Bobby [address] [place] [address] 02/10/2025 9:30 AM EST Telemedicine [facility] [address] [place] [address] Skye Melton, HODA 03/14/2025 10:00 AM EST Office Visit [facility] [address] [place], [place] [phone] Abbey Deng OD [address] [place], [place] documented as of this encounter Visit Diagnoses Diagnosis Lumbar radiculopathy Thoracic or lumbosacral neuritis or radiculitis, unspecified documented in this encounter Additional Health Concerns Assessment Noted Time PHQ-9 Depression Total Score: 0 03/11/20 22 11:47 AM EST documented as of this encounter Care Teams Drywall Installer Relationship Specialty Start Date End Date Name, MD Bobby [address] [place] [address] PCP - General Family Medicine 06/01/15 Inga Magaña PharmD [address] [place] [phone] Pharmacist Internal Medicine 01/07/23 09/29/23 Eloina 05/13/24 documented as of this encounter
--- OUTSIDE RECORDS SUMMARY | 2025-01-11 11:46 | XMS_ITS | Clinical Summary ---
Author Organization [employer] Address [address] [place] [address] 7 [place] [address] Care Team Providers Care Supervisor Scrap Preparation Name Role Phone Name, Bobby GRADY Primary Care Provider [phone] Allergies Active Allergy Reactions Criticality Noted Date [...] miscIndications: Type 2 diabetes mellitus without complications (HCC) Check BG twice daily 100 each 11 Active Alcohol Swabs (Alcohol Prep) 70 % pads USE THREE TIMES DAILY Active D3 Super Strength 50 MCG (2000 UT) capsule Take 1 capsule by mouth 1 (one) time each day. 023 Active Trelegy Ellipta 100-62.5-25 MCG/ACT aerosol powder [...] specified complication, unspecified whether snf insulin use (HCC) USE DIRECTED FIVE TIMES DAILY 200 each 11 Active celecoxib (CeleBREX) 200 MG capsule TAKE 1 CAPSULE BY MOUTH TWICE DAILY WITH FOOD AND A FULL GLASS OF WATER NEEDED FOR PAIN Active OneTouch Ultra Test test stripIndications :Type 2 diabetes mellitus without complications (HCC) USE DIRECTED TO TEST BLOOD SUGAR THREE [...] daily for 5 days 10 tablet Active docusate sodium (Colace) 100 MG capsuleIndicatio ns:Drug-induced constipation TAKE 1 CAPSULE BY MOUTH EVERY DAY AT BEDTIME NEEDED 90 capsule 3 025 Active Combivent Respimat 20-100 MCG/ACT inhalerIndicatio ns:Chronic obstructive pulmonary disease, unspecified COPD type (CMS/HCC) ([facility]) INHALE 1 PUFF 4 TIMES A DAY, [...] with other specified complication, 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 60 capsule 025 2025 Active ipratropium-albu terol (Duo-Neb) 0.5-2.5 mg/3 mL nebulizer solutionIndicati ons:Chronic obstructive pulmonary disease, unspecified ([facility]) INHALE 1 AMPULE USING A NEBULIZER FOUR TIMES DAILY 360 mL 3 025 Active Trulicity 1.5 MG/0.5ML solution auto-injectorInd ications:Type 2 diabetes with complication ([facility]),COPD exacerbation (CMS/HCC) ([facility]) INJECT ONE PEN (=1.5MG) SUBCUTANEOUSLY ONCE A [...] FOR MUSCLE SPASMS 45 tablet 025 Active Jardiance 10 MG TAKE 1 TABLET BY MOUTH ONCE DAILY 30 tablet 11 Active empagliflozin (Jardiance) 10 MG Take 1 tablet (10 mg) by mouth Once per day. 30 tablet 11 024 2024 Discontinued oxyCODONE-acetam inophen (Percocet) 7.5-325 [...] 21, 2024. 112 tablet 025 2024 Discontinued baclofen (Lioresal) 10 MG tabletIndication s:Lumbar radiculopathy TAKE 1 TABLET BY MOUTH EVERY 8 HOURS NEEDED FOR MUSCLE SPASMS 45 tablet 025 2024 Discontinued Active Problems Problem Noted Date Diagnosed Date Long-term current use of opiate analgesic 2024 Cervical radiculitis 06/27/2024 Cubital tunnel syndrome on left 06/27/2024 Left elbow pain 06/27/2024 Numbness and tingling in left hand 06/27/2024 Asthma-COPD overlap syndrome (CMS/HCC) Acute on chronic hypoxic respiratory failure (CM S/HCC) 06/27/2024 Chronic obstructive pulmonary disease 05/01/2024 Allergic rhinitis [...] neoplasm o f colon 09/30/2023 CAD in [place] artery 09/02/2023 Opioid dependence, daily use (CMS/HCC) 4 Smokes tobacco daily 07/27/2023 Nephrolithiasis 07/27/2023 HLD [...] deficiency 11/06/2022 Acute respiratory failure with hypoxia (CMS/HCC) 11/06/2022 Tubular adenoma of colon 07/18/2022 Cardiomyopathy 04/15/2022 Acute exacerbation of chroni c obstructive pulmonary disease (CMS/HCC) 03/05/2022 Assessment & Plan (04/21/2023 2:19 PM [...] Date Diagnosed Date Resolved Date COPD exacerbation ([facility]) 04/04/2024 06/27/2024 Assessment & Plan (04/04/2024 12:56 PM EST): Pt endorses increased sputum production, increased sob, Neg covid tests at home Chest x-ray neg- in care with pulmonary, Extensive conversation about smoking cessation Will treat with prednisone burst/taper and doxycylcine Hypothyroidism, acquired 02/02/2023 Subclinical hyperthyroidism 01/26/2020 06/19/2023 Encounters Date Type Department Care Team Description 01/11/2025 Orders Only GENERIC EXTERNAL DATA DEPARTMENT Provider, Generic External Data 01/10/[address] [facility] MED & PEDS [address] [place] [address] NameBobby MD Lumbar radiculopathy 12/19/2024 Refill [facility] PEDS [address] [place] [address] Name, MD Bobby Chronic low back pain with sciatica, sciatica laterality unspecified, unspecified back pain laterality 12/14/2024 Telephone [facility] MEDICINE [address] [place] [address] Bobby David MD Durable Medical Equipment 12/08/[address] [facility]ED[facility] [address] [place] [address] Bobby David MD Lumbar radiculopathy 12/04/2024 Orders Only GENERIC EXTERNAL DATA DEPARTMENT Provider, Generic External Data 11/25/2024 10:00 AM EDT Telemedicine [facility] MEDICINE [address] [place] [address] Skye Melton, RN Long-term current use of opiate analgesic 11/25/2024 Telephone [facility] MEDICINE [address] [place] [phone] Skye Melton, RN BPI scoring 11/25/2024 Travel 11/18/2024 Orders Only [facility] External Provider, [facility] 11/18/[address] [facility] PED[facility] [address] [place] [address] Bobby David MD Chronic low back pain with sciatica, sciatica laterality unspecified, unspecified back pain laterality 11/14/2024 Telephone [facility] MEDICINE [address] [place] [phone] Bobby David MD Durable Medical Equipment (A/C) 11/14/2024 Refill [facility] MEDICINE [address] [place] [address] Bobby David MD 11/07/2024 Refill [facility] MEDICINE [address] [place] [address] Bobby David MD Type 2 diabetes with complication ([facility]); COPD exacerbation ([facility]) 11/04/2024 Telephone [facility] MEDICINE [address] [place] [address] Bobby David MD 11/04/2024 Refill [facility] MEDICINE [address] [place] [address] Bobby David MD Chronic obstructive pulmonary disease, unspecified ([facility]/HCC) 11/02/2024 9:30 AM EDT Office Visit [facility] MEDICINE [address] [place] [address] Name, MD Bobby Type 2 diabetes mellitus with other specified complication, 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 ([facility]) (Primary Dx); Hypertension, unspecified type; Chronic obstructive pulmonary disease, unspecified COPD type (CMS/[facility]); Atelectasis; Chronic pain syndrome; Acquired hypothyroidism; Encounter for screening mammogram for malignant neoplasm of breast 11/02/2024 Telephone [facility] MEDICINE [address] [place] [address] Name, MD Bobby FYI 11/02/2024 Travel 11/01/2024 Refill [facility] PEDS [address] [place], [place] [phone] Bobby David MD Lumbar radiculopathy 10/21/[address] [facility] MED [facility] PEDS [address] [place], [place] [phone] Name, MD Bobby Chronic low back pain [...] Office Visit [facility] MEDICINE [address] [place] [phone] Name, MD Bobby [address] [place] [address] 02/10/2025 9:30 AM EST Telemedicine [facility] MEDICINE [address] [place] [phone] Skye Melton, HODA 03/14/2025 10:00 AM EST Office Visit [facility] OPTOMETRY [address] [place] [address] Abbey Deng, KIKA [address] [place] [address] Health Maintenance Due Date Last Done Comments CT Colonography 1959 FIT DNA/Cologuard 1959 FIT 1960 FOBT 1960 Sigmoidoscopy 1960 Eye Exam 12/30/1969 Hepatitis C Screening 12/30/1977 RSV Patients and Patients Aged 60 years or older (1 - Risk 60-74 years 1-dose series) 2019 Cervical Cancer Screening 02/28/2024 HPV/Cotest 02/28/2024 02/27/2021, 03/03/2018 Pap Smear 02/28/2024 02/27/2021, 02/27/2021 Influenza Vaccine (#1) 2024 , 12/10/2023, 01/07/2023, Additional history exists Diabetes: Urine Protein Screening 12/28/2024 12/29/2023, 08/28/2021, 10/30/2020 Lipid Panel 12/28/2024 12/29/2023, 08/28/2021 COVID-19 Vaccine ( season) 2024 01/05/2024, 03/12/2023, 03/11/2022, Additional history exists Diabetes: Hemoglobin A1C 02/02/2025 025, 06/22/2024, 05/31/2024, Additional history exists Colonoscopy 07/16/2025 07/16/2022 Colorectal Cancer Screening 07/16/2025 Alcohol/Substance Use Screening 11/02/2025 11/02/2024 Depression Screening 11/02/2025 11/02/2024, 11/03/19 25 Diabetes: Foot Exam 11/02/2025 11/02/2024, 11/02/2024, 11/02/2024, Additional history exists SDOH Screening 11/02/2025 11/02/2024 Tobacco Screening 11/02/2025 11/02/2024 Mammogram 12/23/2026 12/23/2024, 03/31, 10/10/2020, Additional history exists DTaP/Tdap/Td Vaccines (4 - Td or Tdap) 11/07/2032 11/07/2022, 06/12/2009, 06/12/2009 Pneumococcal Vaccine: 50+ Years Completed 11/07/2022, 11/07/2022, 05/23/2019, Additional history exists Zoster Vaccines Completed 01/07/2023, 12/28, 11/07/2022, Additional history exists HIB Vaccines Aged Out [...] this topic Meningococcal Vaccine Aged Out No ceciila zachary eligible based on patient's age to [...] TROPONIN I Routine 01/11/2025 9:02 AM EDT BASIC METABOLIC PANEL Routine 01/11/2025 9:02 AM EDT CBC WITH AUTO DIFFERENTIAL Routine 01/11/2025 9:02 AM EDT SARS COV2/INFLUENZA A/B AND RSV RNA QL NAAT Routine 01/11/2025 9:02 AM EDT XR CHEST 2 VIEWS Routine 01/11/2025 9:00 AM EDT BD DEXA AXIAL Routine 12/23/2024 12:50 PM EDT On prednisone therapy Osteopenia, unspecified location BI MAMMOGRAM SCREENING TOMOSYNTHESIS BILATERAL Routine 12/23/2024 12:35 PM EDT Encounter for screening mammogram for malignant neoplasm of breast XR CHEST 1 VIEW Routine 12/04/2024 1:22 [...] specified complication, unspecified whether snf insulin use (CMS/HCC) POCT GLUCOSE Routine 11/02/2024 9:44 AM EDT Type 2 diabetes mellitus with other specified complication, unspecified whether snf insulin use (CMS/HCC) ALBUMIN, RANDOM URINE W/CREATININE Routine 12/29/2023 11:20 AM EDT Type 2 diabetes with complication (CMS/HCC) Atherosclerosis of coronary artery of [place] heart, unspecified vessel or lesion type, unspecified whether angina present Pain of toe of left foot LIPID PANEL, STANDARD Routine 12/29/2023 11:17 AM EDT Type 2 diabetes with complication (CMS/HCC) Atherosclerosis of coronary artery of [place] heart, unspecified vessel or lesion type, unspecified whether angina present Pain of toe of left foot HM COLONOSCOPY Routine 07/16/2022 HM PAP/HPV Routine 02/27/2021 10:30 AM EST THINPREP IMAGING PAP AND HPV MRNA E6/E7 WITH REFLEX TO HPV 16,18/45 Routine 02/27/2021 10:24 AM EST from Last 3 Months or Most Recently Relevant to Health Maintenance Results * CTA Chest PE Protocal (01/11/2025 10:18 AM EDT) Anatomical Region Laterality Modality Body, Chest Computed Tomogra phy 01/11/2025 10:1 8 AM EDT Narrative 01/11/2025 11:12 AM EDT [place] [address] CT Scan Report Signed Patient: Marita Zapata MR#: [id number] : 1960 Acct:[id number] Age/Sex: 64 / F ADM Date: 01/11/25 Loc: .ED Attending Dr: Ordering Physician: Rebecca Terry DO Date of Service: 01/11/25 Procedure(s): CT angio chest PE protocol Accession Number(s): [id number] cc: Rebecca Terry DO; Name,Bobby GRADY Report Number: [id number]: Total DLP = 316.00 mGy-cm Reason for [...] 01/11/25 1109 DD/ 1018 TD/TT: 01/11/25 1050 Wiping Cloth Cutter: ISH Procedure Note Donotuseinterpreter, Image - 01/11/[address] [address] [address] Scan Report Signed Patient: Marita Zapata [facility]#: [id number] : 1960Acct:[id number] Age/Sex: 64 / FADM Date: 01/11/25 Loc: HO.ED Attending Dr: Ordering Physician: Rebecca Terry DO Date of Service: 01/11/25 Procedure(s): CT angio chest PE protocol Accession Number(s): [id number] cc: Rebecca Terry DO; Name,Bobby GRADY Report Number: [id number]: Total DLP = 316.00 mGy-cm Reason for [...] 01/11/25 1109 DD/ 1018 TD/TT: 01/11/25 1050 Wiping Cloth Cutter: ISH us [facility] External Provider IMG CT PROCEDURES Final Result * VENOUS BLOOD GAS (01/11/2025 9:51 AM EDT) VBG pH 7.41 7.32 - 7.43 [facility] Comment:METER #: [id number] additional_comment: Cb bdaweh VBG PCO2 40 mmHg [facility] Comment:METER #: [id number] additional_comment: Cb bdaweh VBG PO2 48 mmHg [facility] Comment:METER #: [id number] additional_comment: Cb bdaweh VBG Base Excess 1.6 mmol/L [facility] Comment:METER #: [id number] additional_comment: Cb bdaweh VBG HCO3 26 22 - 26 mmol/L [facility] Comment:METER #: [id number] additional_comment: Cb bdaweh O2 Sat, Maynor 74.0 % [facility] Comment:METER #: [id number] additional_comment: Cb bdaweh 01/11/2025 9:51 AM EDT 01/11/2025 9:56 AM EDT Generic External Data Provider LAB BLOOD ORDERAB LES Final Result Performing Organization Address [facility] Co de Phone Number [facility] [address] [place] [phone] * Lactic Acid (01/11/2025 9:46 AM EDT) Lactic Acid 1.5 0.5 - 2.0 mmol/L [facility] 01/11/2025 9:46 AM EDT 01/11/2025 9:49 AM EDT Generic External Data Provider LAB BLOOD ORDERAB LES Final Result Performing Organization Address [facility] Co de Phone Number [facility] [address] [place] [address] [phone] * High Sensitivity Troponin I (01/11/2025 9:02 AM EDT) Only the most recent of2 resultswithin the time period is included. TROPONIN I HIGH SENSITIVITY 4.2 <3.5 - 17.0 ng/L [facility] Comment:The Grossman high sens itivity Troponin-I results should beused in conjunction with other diagnostic information suchas ECG, clinical observations and information, and patientsymptoms to aid in the diagnosis of MD. 01/11/2025 9:02 AM EDT 01/11/2025 9:04 AM EDT us Generic External Data Provider LAB BLOOD ORDERAB LES Final Result [facility] [address] [place] [address] [phone] * SARS-CoV-2 RNA, Influenza A/B, and RSV RNA, Ql NAAT (01/11/2025 9:02 AM EDT) Only the most recent of2 resultswithin the time period is included. Influenza A PCR NEGATIVE Negative [facility] Influenza B PCR NEGATIVE Negative [facility] Resp Syncy Virus RNA Qual PCR NEGATIVE Negative [facility] SARS COV2 PCR NEGATIVE Negative [facility] Comment:All test results mus [...] use by authorized laboratories.Testing performed on the [employer] GeneXpert utilizingreal-time RT-PCR.All SARS CoV2 and positive influenza A/B results arereported to [facility]. 01/11/2025 9:02 AM EDT 01/11/2025 9:04 AM EDT us Generic External Data Provider LAB MICROBIOLOGY - GENERAL ORDERABLES Final Result [facility] [address] [place] [address] [phone] * (ABNORMAL) CBC auto differential (01/11/2025 9:02 AM EDT) Only the most recent of2 resultswithin the time period is included. White Blood Count 12.9(H) 4.8 - 10.8 X10*3/uL [facility] Red Blood Count 6.04(H) 4.20 - 5.50 X10*6/uL [facility] Hemoglobin 17.1(H) 12.0 - 16.0 g/dl [facility] Hematocrit 53.0(H) 37.0 - 47.0 % [facility] Mean Corpuscular Volume 87.7 80.0 - 98.0 fL [facility] Mean Corpuscular Hemoglobin 28.3 27.0 - 33.0 pg [facility] Mean Corpuscular HGB Conc 32.3 31.0 - 35.0 g/dl [facility] Red Cell Distribution Width 14.6 11.0 - 16.0 % [facility] Platelet Count 216 160 - 400 X10*3/uL [facility] Mean Platelet Volume 10.0 9.4 - 12.3 fL [facility] Neutrophils Percent Auto 74.1(H) 45 - 73 % [facility] Imm Gran Pct Auto 0.7(H) 0.0 - 0.4 % [facility] Lymphocytes Percent Auto 18.1(L) 20 - 40 % [facility] Monocytes Percent Auto 6.0 2 - 11 % [facility] Eosinophils Percent Auto 0.5 0 - 4 % [facility] Basophils Percent Auto 0.6 0 - 2 % [facility] NRBC Pct Auto 0.0 0.0 - 0.2 /100WBC [facility] Neutrophils Absolute Auto 9.6(H) 2.0 - 8.3 x10*3/uL [facility] Imm Gran Abs Auto 0.09(H) 0.00 - 0.03 X10*3/uL [facility] Lymphocytes Absolute Auto 2.3 1.2 - 4.9 X10*3/uL [facility] Monocytes Absolute Auto 0.8 0.1 - 1.2 X10*3/uL [facility] Eosinophils Absolute Auto 0.1 0.0 - 0.4 X10*3/uL [facility] Basophils Absolute Auto 0.1 0.0 - 0.2 X10*3/uL [facility] NRBC Abs Auto 0.000 0.0 - 0.012 X10*3/uL [facility] 01/11/2025 9:02 AM EDT 01/11/2025 9:04 AM EDT us Generic External Data Provider LAB BLOOD ORDERAB LES Final Result [facility] [address] [place] [phone] * (ABNORMAL) Basic Metabolic Panel (01/11/2025 9:02 AM EDT) Sodium 144 135 - 145 mmol/L [facility] Potassium 4.1 3.3 - 5.1 mmol/L [facility] Chloride 112(H) 96 - 108 mmol/L [facility] Carbon Dioxide 21(L) 22 - 29 mmol/L [facility] Anion Gap 15 12 - 20 [facility] Urea Nitrogen (BUN) 13 9 - 16 mg/dL [facility] Creatinine, Serum 0.67 0.5 - 1.4 mg/dL [facility] Creatinine Clr Calc Pharmacy 83.6 [facility] Comment:Provided height and weight: 165.1 cm,72.575 kg.eGFR (calculated from the MDRD study equation) and eCrCl(calculated from the Cockcroft-Gault equation) are based ondifferent parameters and may not yield comparable results.If eCrCl result is absurd, please check patient'sheight/weight. Estimated Glomerular Filt Rate >60 [facility] Comment:Chronic Kidney Disea se: Estimated GFR < 60 mL/min/[id number] Kidney Disease: Estimated GFR < 15 mL/min/1.73m2 Glucose 180(H) 60 - 115 mg/dL [facility] Calcium 9.2 8.4 - 10.2 mg/dL [facility] 01/11/2025 9:02 AM EDT 01/11/2025 9:04 AM EDT us Generic External Data Provider LAB BLOOD ORDERAB LES Final Result Performing Organization Address City/State/[facility] Co de Phone Number [facility] [address] [place] [phone] * XR Chest 2 Views (01/11/2025 9:00 AM EDT) Anatomical Region Laterality Modality Chest Radiographic Ludivina ging 01/11/2025 9:00 AM EDT Narrative 01/11/2025 9:25 AM EDT [place] [address] XRay Report Signed Patient: Marita Zapata MR#: [id number] : 1960 Acct:[id number] Age/Sex: 64 / F ADM Date: 01/11/25 Loc: .ED Attending Dr: Ordering Physician: Generic ED Physician Date of Service: 01/11/25 Procedure(s): XR chest 2V Accession Number(s): [id number] cc: [facility] ED Physician; Name,Bobby GRADY Reason for [...] in OV> 01/11/25922 DD/ 9 TD/TT: 01/11/25903 Wiping Cloth Cutter: Procedure Note Donotuseinterpreter, Image - 01/11/[address] [address] XRay Report Signed Patient: Marita Zapata MMR#: [id number] : 1960Acct:[id number] Age/Sex: 64 / FADM Date: 01/11/25 Loc: .ED Attending Dr: Ordering Physician: Generic ED Physician Date of Service: 01/11/25 Procedure(s): XR chest 2V Accession Number(s): [id number] cc: Generic ED Physician; Name,Bobby GRADY Reason [...] 09:23 AM EDT RP Dictated By: Andriy aLma MD Signed By: <Electronically signed by Andriy Lama MD in OV> 01/11/25922 DD/ 9 TD/TT: 01/11/25903 Wiping Cloth Cutter: us [facility] External Provider IMG XR PROCEDURES Final Result * BD DEXA Axial (12/23/2024 12:50 PM EDT) Anatomical Region Laterality Modality Body Radiographic Ludivina ging 12/23/2024 12:5 0 PM EDT Narrative 12/23/2024 1:23 PM EDT [facility] [address] [place] [address] Mammography Report Signed Patient: Marita Zapata MR#: [id number] : 1960 Acct:[id number] Age/Sex: 63 / F ADM Date: 12/23/24 Loc: HO.MAMMO Attending Dr: Bobby David MD Ordering Physician: Bobby David MD Results: Date of Service: 12/23/24 Follow Up: Procedure(s): XR DEXA axial skeleton Accession Number(s): [id number] cc: Bobby David MD Reason For Exam: osteopenia, chronic prednisone use EXAMINATION: DXA BONE DENSITY AXIAL HISTORY: osteopenia, chronic prednisone use TECHNIQUE: CytoVale Dual energy absorptiometry (DEXA) of the lumbar [...] is a trademark of the [employer]'s [place] for Metabolic Bone Disease, a World Health Organization (WHO) Collaborating Center. Electronically signed by: Brooks Daly MD 12/23/2024 01:20 PM EDT RP Dictated By: Brooks Daly MD Signed By: <Electronically signed by Brooks Daly MD in OV> 12/23/24 1320 DD/ 1250 TD/TT: 12/23/24 1315 Wiping Cloth Cutter: Procedure Note Donotuseinterpreter, Image - 12/23/[facility] [address] [place] [address] Mammography Report Signed Patient: Marita Zapata [facility]#: [id number] : 1960Acct:[id number] Age/Sex: 63 / FADM Date: 12/23/24 Loc: SUHAILO Attending Dr: Bobby David MD Ordering Physician: Bobby Davidults: Date of Service: 12/23/24Follow Up: Procedure(s): XR DEXA axial skeleton Accession Number(s): [id number] cc: Bobby David MD Reason For Exam: osteopenia, chronic prednisone use EXAMINATION: DXA BONE DENSITY AXIAL HISTORY: osteopenia, chronic prednisone use TECHNIQUE: CytoVale Dual energy absorptiometry (DEXA) of the lumbar [...] is a trademark of the [employer] [place] for Metabolic Bone Disease, a World Health Organization (WHO) Collaborating Center. Electronically signed by: Brooks Daly MD 12/23/2024 01:20 PM EDT Dictated By: Brooks Daly MD Signed By: <Electronically signed by Brooks Daly MD in OV> 12/23/24 1320 DD/ 1250 TD/TT: 12/23/24 1315 Wiping Cloth Cutter: Bobby David MD IMG DXA PROCEDURES Final Result * BI Mammogram Screening Tomosynthesis Bilateral (12/23/2024 12:35 PM EDT) Anatomical Region Laterality Modality Breast Bilateral Mammography 12/23/2024 12:3 5 PM EDT Narrative 12/27/2024 9:53 AM EDT [facility] [place] [address] Mammography Report Signed Patient: Marita Zapata MR#: [id number] : 1960 Acct:[id number] Age/Sex: 63 / F ADM Date: 12/23/24 Loc: HO.MAMMO Attending Dr: Bobby David MD Ordering Physician: Bobby David MD Results: 2Benign Date of Service: 12/23/24 Follow Up: 1 Year From Orig ina Mammogram Procedure(s): MM tomosynthesis screening BI Accession Number(s): [id number] cc: Bobby David MD Reason For Exam: Screening for breast cancer EXAMINATION: MM SCREENING DIGITAL BREAST TOMOSYNTHESIS, BILATERAL CLINICAL INFORMATION: Screening. Asymptomatic. COMPARISON: Mammography: Comparison is made with available priors TECHNIQUE: Digital breast mammography with tomosynthesis is performed in both the craniocaudal and mediolateral oblique views along with computer-aided detection (CAD). FINDINGS: The breasts are heterogeneously dense, which may obscure small masses. Status post right excisional biopsy changes are stable. There are no significant masses, abnormal calcifications, or other abnormalities. MM/MM tomosynthesis screening BI IMPRESSION: No mammographic evidence of malignancy. ASSESSMENT: BI-RADS Category 2: Benign RECOMMENDATION: Routine annual mammography screening. 1 year F/U This examination should not preclude the clinical evaluation of a suspicious palpable abnormality. This patient's information was entered into a reminder system with a target due date for their next mammogram. Electronically signed by: Leonor Whitlock DO 12/27/2024 09:50 AM EDT Dictated By: Leonor Whitlock DO Signed By: <Electronically signed by Leonor Whitlock DO in OV> 12/27/24 0950 DD/ 1235 TD/TT: 12/23/24 1250 Wiping Cloth Cutter: Procedure Note Donotuseinterpreter, Image - [facility] [address] [place] [address] Mammography Report Signed Patient: Marita Zapata MMR#: [id number] : 1960Acct:[id number] Age/Sex: 63 / FADM Date: 12/23/24 Loc: HO.MAMMO Attending Dr: Bobby David MD Ordering Physician: Bobby David MDResults: 2Benign Date of Service: 12/23/24Follow Up: 1 Year From Orig inal Mammogram Procedure(s): MM tomosynthesis screening BI Accession Number(s): [id number] cc: Bobby David MD Reason For Exam: Screening for breast cancer EXAMINATION: MM SCREENING DIGITAL BREAST TOMOSYNTHESIS, BILATERAL CLINICAL INFORMATION: Screening. Asymptomatic. COMPARISON: Mammography: Comparison is made with available priors TECHNIQUE: Digital breast mammography with tomosynthesis is performed in both the craniocaudal and mediolateral oblique views along with computer-aided detection (CAD). FINDINGS: The breasts are heterogeneously dense, which may obscure small masses. Status post right excisional biopsy changes are stable. There are no significant masses, abnormal calcifications, or other abnormalities. MM/MM tomosynthesis screening BI IMPRESSION: No mammographic evidence of malignancy. ASSESSMENT: BI-RADS Category 2: Benign RECOMMENDATION: Routine annual mammography screening. 1 year F/U This examination should not preclude the clinical evaluation of a suspicious palpable abnormality. This patient's information was entered into a reminder system with a target due date for their next mammogram. Electronically signed by: Leonor Whitlock DO 12/27/2024 09:50 AM EDT Dictated By: Leonor Whitlock DO Signed By: <Electronically signed by Leonor Whitlock DO in OV> 12/27/24 0950 DD/ 1235 TD/TT: 12/23/24 1250 Wiping Cloth Cutter: Bobby David MD IMG BI PROCEDURES Edited Result - Final * XR Chest 1 View (12/04/2024 1:22 PM EDT) Anatomical Region Laterality Modality Chest Radiographic Ludivina ging 12/04/2024 1:22 PM EDT Narrative 12/04/2024 1:24 PM EDT [address] [address] XRay Report Signed Patient: Marita Zapata MR#: [id number] : 1960 Acct:[id number] Age/Sex: 63 / F ADM Date: 12/04/24 Loc: HO.ED Attending Dr: Ordering Physician: Drew Herrera Date of Service: 12/04/24 Procedure(s): XR chest 1V Accession Number(s): [id number] cc: Drew Herrera; Name,Bobby GRADY Reason for [...] 12/04/24 1323 DD/ 1322 TD/TT: 12/04/24 1322 Wiping Cloth Cutter: Procedure Note Donotuseinterpreter, Image - 12/04/[address] [address] XRay Report Signed Patient: Marita Zapata MMR#: [id number] : 1960Acct:[id number] Age/Sex: 63 / FADM Date: 12/04/24 Loc: HO.ED Attending Dr: Ordering Physician: Drew Herrera Date of Service: 12/04/24 Procedure(s): XR chest 1V Accession Number(s): [id number] cc: Drew Herrera; Name,Bobby GRADY Reason for [...] 12/04/24 1323 DD/ 1322 TD/TT: 12/04/24 1322 Wiping Cloth Cutter: [facility] External Provider IMG XR PROCEDURES Edited Result - Final * B Type Natriuretic Peptide (BNP) (12/04/2024 11:49 AM EDT) Pathologist [facility] B Type Natriuretic Peptide 51 <100 pg/mL [facility] 12/04/2024 11:4 9 AM EDT 12/04/2024 11:51 AM EDT Generic External Data Provider LAB BLOOD ORDERAB LES Final Result [facility] [address] [place] [phone] * Partial Thromboplastin Time, Activated (APTT) (12/04/2024 11:35 AM EDT) Partial Thromboplastin Time 27.7 26.7 - 34.1 SEC [facility] 12/04/2024 11:3 5 AM EDT 12/04/2024 11:51 AM EDT Generic External Data Provider LAB BLOOD ORDERAB LES Final Result Performing Organization Address [facility] Co de Phone Number [facility] [address] [place] [phone] * (ABNORMAL) Prothrombin Time-INR (12/04/2024 11:35 AM EDT) Prothrombin Time 9.7(L) 10.9 - 12.4 SEC [facility] INTERNATIONAL NORM RATIO 0.8(L) 0.9 - 1.1 [facility] Comment:INTERNATIONAL NORMAL IZED RATIO (INR) [...] ORDERAB LES Final Result Performing Organization Address [facility] Co de Phone Number [facility] [address] [place] [phone] * Magnesium (12/04/2024 11:35 AM EDT) Magnesium 2.0 1.6 - 2.6 mg/dL [facility] 12/04/2024 11:3 5 AM EDT 12/04/2024 11:51 AM EDT Generic External Data Provider LAB BLOOD ORDERAB LES Final Result [facility] [address] [place] [phone] * (ABNORMAL) Comprehensive Metabolic Panel (12/04/2024 11:35 AM EDT) Sodium 146(H) 135 - 145 mmol/L [facility] Potassium 3.5 3.3 - 5.1 mmol/L [facility] Chloride 113(H) 96 - 108 mmol/L [facility] Carbon Dioxide 22 22 - 29 mmol/L [facility] Anion Gap 15 12 - 20 [facility] Urea Nitrogen (BUN) 14 9 - 16 mg/dL [facility] Creatinine, Serum 0.78 0.5 - 1.4 mg/dL [facility] Creatinine Clr Calc Pharmacy 65.5 [facility] Comment:Provided height and weight: 165.1 cm,65.771 kg.eGFR (calculated from the MDRD study equation) and eCrCl(calculated from the Cockcroft-Gault equation) are based ondifferent parameters and may not yield comparable results.If eCrCl result is absurd, please check patient'sheight/weight. Estimated Glomerular Filt Rate >60 [facility] Comment:Chronic Kidney Disea se: Estimated GFR < 60 mL/min/1.12w3Zvdvrd Kidney Disease: Estimated GFR < 15 mL/min/1.73m2 Glucose 131(H) 60 - 115 mg/dL [facility] Calcium 8.9 8.4 - 10.2 mg/dL [facility] Bilirubin, Total 0.4 0.0 - 1.0 mg/dL [facility] Aspartate Amino Transferase 21 5 - 31 U/L [facility] Alanine Aminotransferase 21 0 - 31 U/L [facility] Total Protein 7.0 6.5 - 8.0 g/dL [facility] Albumin Level 4.2 3.5 - 5.0 g/dL [facility] Alkaline Phosphatase 78 39 - 117 U/L [facility] 12/04/2024 11:3 5 AM EDT 12/04/2024 11:51 AM EDT us Generic External Data Provider LAB BLOOD ORDERAB LES Final Result [facility] [address] [place] [phone] * CT Chest w/o Contrast (11/19/2024 7:06 PM EDT) Anatomical Region Laterality Modality Body, Chest Computed Tomogra phy 11/19/2024 7:06 PM EDT Narrative 11/19/2024 7:07 PM EDT [place] [address] CT Scan Report Signed Patient: Marita Zapata MR#: [id number] : 1960 Acct:[id number] Age/Sex: 63 / F ADM Date: 11/18/24 Loc: HO.CT Attending Dr: Fidel White MD Ordering Physician: Fidel White MD Date of Service: 11/18/24 Procedure(s): CT chest wo IV con Accession Number(s): [id number] cc: Bobby David MD; Fidel White MD Report Number: [id number]: Total DLP = 160.00 mGy-cm CLINICAL HISTORY: [...] in OV> 11/19/241906 DD/ 05 TD/TT: 11/19/241905 Wiping Cloth Cutter: Procedure Note Donotuseinterpreter, Image - 11/19/[address] [place] [address] [address] Scan Report Signed Patient: Marita Zapata [facility]#: [id number] : 1960Acct:[id number] Age/Sex: 63 / FADM Date: 11/18/24 Loc: HO.CT Attending Dr: Fidel White MD Ordering Physician: Fidel White MD Date of Service: 11/18/24 Procedure(s): CT chest wo IV con Accession Number(s): [id number] cc: Name,Bobby GRADY; Fidel White MD Report Number: [id number]: Total DLP = 160.00 mGy-cm CLINICAL HISTORY: [...] in OV> 11/19/241906 DD/ 05 TD/TT: 11/19/241905 Wiping Cloth Cutter: [facility] External Provider IMG CT PROCEDURES Final Result * (ABNORMAL) POCT HGB A1C (11/02/2024 9:46 AM EDT) Hemoglobin A1C 8.2(A) 4.0 - 5.7 % QC Media Lot # [id number] Lot# Expiration Date 62 Blood 11/02/2024 9:46 AM EDT us Bobby [...] 11:20 AM EDT) Creatinine, Urine 157.96 mg/dL [facility] Microalbumin Urine 47.0 mg/L [facility] Microalbum Creatinine Ratio Ur 29.7(H) <30 ug/mg cr [facility] Comment:Albumin/Creatinine R atio Reference Ranges: Normal: < 30 ug/mg creatinine Microalbuminuria: 30 - 300 ug/mg creatinineClinical Albuminuria: > 300 ug/mg creatinine Urine (Urine, Random) 12/29/2023 11:20 AM EDT 12/29/2023 1:01 PM EDT us Bobby Name LAB URINE ORDERABLES Final Resul t [facility] [address] [place] [phone] * (ABNORMAL) Lipid Panel, Standard (12/29/2023 11:17 AM EDT) Triglycerides 172(H) <150 mg/dL [facility] Comment:Desirable Triglyceri de: less than 150 mg/dLBorderline High Triglyceride 150-199 mg/dLHigh Triglyceride: 200-499 mg/dLVery High Triglyceride: greater than or equal to 5OO mg/dL Cholesterol 140 <200 mg/dL [facility] Comment:Desirable Cholestero l: less than 200 mg/dLBorderline High Cholesterol: 200-239 mg/dLHigh Cholesterol: greater than 239 mg/dL LDL Cholesterol Calculated 61 <100 mg/dL [facility] Comment:Desirable LDL: less than 100 [...] 11:17 AM EDT 12/29/2023 1:03 PM EDT Bobby David MD LAB BLOOD ORDERABLES Final Resul t [facility] [address] [place] [phone] * (ABNORMAL) Colonoscopy (07/16/2022) Colonoscopy Abnormal( A) Normal Comment:repeat in 3-5 yrs Historical Provider MD HEALTH MAINTENANCE Final Result * Pap Smear (02/27/2021 10:30 [...] technology. [facility] Senior Linux Unix Engineer: SEE COMMENT [facility] Comment: CULP, CT(ASCP) CT screening location: [address] [address] HPV nRNA E6/E7 Not Detected Not Detected [facility] Comment: Methodology: Pest Control Applicator-Mediated Amplification This assay detects E6/E7 viral messenger RNA (mRNA) from 14 high-risk HPV types (16,18,31,33,35,39,45,51,52,56,58,59,66,68). The analytical performance characteristics of this assay have been determined by [employer]. The modifications have not been cleared or approved by the FDA. This assay has been validated pursuant to the CLIA regulations and is used for clinical purposes. For additional information, please refer to http://education.3Nod.TUKZ Undergarments/faq/FDR324x3 (This link if provided for information/ educational [...] Final Result [facility] [address] from Last 3 Months or Most Recently Relevant to Health Maintenance Insurance [employer] [id number] [address] [place] [address] Care Teams Supervisor Scrap Preparation Relationship Specialty Start Date End Date Name, MD Bobby [address] [place] [phone] PCP - General Family Medicine 06/01/15 Eloina 05/13/24
--- OUTSIDE RECORDS SUMMARY | 2025-01-11 11:46 | XMS_ITS | Encounter Summary ---
Author Organization [employer] Address [address] [place] [address] [address] [place] [address] Care Team Providers Care Glove Examiner Name Role Phone Name, Bobby GRADY Primary Care Provider Inga Magaña PharmD Unavailable Reason for Visit * Reason Comments Med Refill Encounter Details Date Type Department Care Team (Late st Contact Info) Description 05/15/2022 Refill [facility] [address] [place] [address] Name, MD Bobby [address] [place] [address] Seasonal allergic rhinitis, unspecified trigger (Primary Dx) [...] Description 01/25/2025 9:30 AM EDT Office Visit [facility] [address] [place] [phone] Name, MD Bobby [address] [place] [phone] 02/10/2025 9:30 AM EST Telemedicine [facility] [address] [place] [phone] Skye Melton, RN 03/14/2025 10:00 AM EST Office Visit [facility] [address] [place] [address] Abbey Deng, OD [address] [place] [address] documented as of this encounter Visit Diagnoses Diagnosis Seasonal allergic rhinitis, unspecified trigger- Primary documented in this encounter Additional Health Concerns Assessment Noted Time PHQ-9 Depression Total Score: 0 03/11/20 11:47 AM EST documented as of this encounter Care Teams Glove Examiner Relationship Specialty Start Date End Date Name, MD Bobby [address] [place] [phone] PCP - General Family Medicine 06/01/15 Inga Magaña PharmD [address] [place] [phone] Pharmacist Internal Medicine 01/07/23 09/29/23 Eloina 05/13/24 documented as of this encounter
--- OUTSIDE RECORDS SUMMARY | 2025-01-11 11:46 | XMS_ITS | Encounter Summary ---
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 BASIC METABOLIC PANEL Routine 04/29/2024 5:10 AM EST 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 documented in this encounter Results * (ABNORMAL) Basic metabolic panel (04/29/2024 5:10 AM EST) Sodium 143 133 - 145 mmol/L LAB CHEMISTRY METHOD 04/29/2024 11:20 AM EST [facility] Potassium 4.5 3.5 - 5.5 mmol/L LAB CHEMISTRY METHOD 04/29/2024 11:20 AM [facility] Chloride 106 96 - 110 mmol/L LAB CHEMISTRY METHOD 04/29/2024 11:20 AM [facility] CO2 31 21 - 32 mmol/L LAB CHEMISTRY METHOD 04/29/2024 11:20 AM [facility] Anion Gap 6 3 - 11 LAB CHEMISTRY METHOD 04/29/2024 11:20 AM [facility] Glucose 97 70 - 100 mg/dL LAB CHEMISTRY METHOD 04/29/2024 11:20 AM [facility] BUN 34(H) 5 - 25 mg/dL LAB CHEMISTRY METHOD 04/29/2024 11:20 AM [facility] Creatinine 0.80 0.50 - 1.10 mg/dL LAB CHEMISTRY METHOD 04/29/2024 11:20 AM [facility] eGFR 82 >=60 mL/min/1. 73m2 LAB CHEMISTRY METHOD 04/29/2024 11:20 AM [facility] Comment:Calculation based on the Chronic Kidney Disease Epidemiology Collaboration (CKD-EPI) equation refit without adjustment for race. BUN/Creatinine Ratio 42.5 LAB CHEMISTRY METHOD 04/29/2024 11:20 AM [facility] Calcium 7.9(L) 8.5 - 10.5 mg/dL LAB CHEMISTRY METHOD 04/29/2024 11:20 AM [facility] Blood Venous blood specimen / Unknown Venipuncture / Unknown 04/29/2024 5:10 AM EST 04/29/2024 9:30 AM EST us Yared Weaver MD LAB BLOOD ORDERABLES Final Resul t [facility] [address] [place] [address], * (ABNORMAL) Complete blood count (04/29/2024 5:10 AM EST) [facility] WBC 18.2(H) 4.8 - 10.8 K/mcL LAB HEMETOLOGY METHOD 04/29/2024 10:30 AM [facility] RBC 5.30(H) 3.80 - 4.80 M/mcL LAB HEMETOLOGY METHOD 04/29/2024 10:30 AM [facility] Hemoglobin 15.0 11.5 - 16.0 g/dL LAB HEMETOLOGY METHOD 04/29/2024 10:30 AM [facility] Hematocrit 48.0(H) 35.0 - 47.0 % LAB HEMETOLOGY METHOD 04/29/2024 10:30 AM [facility] MCV 90.2 79.0 - 98.0 FL LAB HEMETOLOGY METHOD 04/29/2024 10:30 AM [facility] MCH 28.2 27.0 - 32.0 pcg LAB HEMETOLOGY METHOD 04/29/2024 10:30 AM [facility] MCHC 31.3(L) 32.0 - 37.0 g/dL LAB HEMETOLOGY METHOD 04/29/2024 10:30 AM [facility] RDW 14.7 11.0 - 15.0 % LAB HEMETOLOGY METHOD 04/29/2024 10:30 AM [facility] Platelets 238 130 - 400 K/mcL LAB HEMETOLOGY METHOD 04/29/2024 10:30 AM [facility] MPV 11.8(H) 7.0 - 11.0 FL LAB HEMETOLOGY METHOD 04/29/2024 10:30 AM [facility] NRBC 0.0 <1.0 % LAB HEMETOLOGY METHOD 04/29/2024 10:30 AM [facility] NRBC Absolute 0.00 <0.10 K/mcL LAB HEMETOLOGY METHOD 04/29/2024 10:30 AM EST [facility] Blood Venous blood specimen / Unknown Venipuncture / Unknown 04/29/2024 5:10 AM EST 04/29/2024 9:30 AM EST us Yared Weaver MD LAB BLOOD ORDERABLES Final Resul t [facility] [address] [place] [address], documented in this encounter Visit Diagnoses Diagnosis 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
[2025-01-11 11:56] VITALS: PULSE 86; RESP 19; O2SAT 93
[2025-01-11] MEDS: Albuterol Sulfate 2.5 MG, Albuterol/Iprat 2.5/0.5MG 3 ML 3 ML INHALE (12:01)
[2025-01-11 13:07] VITALS: BP 146/70; PULSE 78; RESP 18; TEMP 36.7; O2SAT 93
--- NOTE | 2025-01-11 14:04 | PHA.MEDREC ---
Addendum entered by Bertram Pa PharmD 01/11/25 14:17: reviewed Original Note: Pharmacy Consult ? Medication Reconciliation Pharmacy has completed the medication reconciliation. Patient was able to confirm all of her medications. Patient states he is no longer taking Azithromycin 250 mg, Dupixent 300 mg. Patient confirmed Trulicity 1.5 every Thursday last dose 01/04/25.
[2025-01-11 15:05] VITALS: BP 146/70; PULSE 78; RESP 18; TEMP 36.7; O2SAT 93
== END 2025-01-11 15:05 | disposition home or self-care (01) ==
PROVIDERS: Emergency Medicine; Emergency Provider Emergency Medicine; PCP Internal Medicine Geriatric Medicine
DX: J44.1 Chronic obstructive pulmonary disease with (acute) exacerbation (principal); J18.9 Pneumonia, unspecified organism; R07.81 Pleurodynia; R07.89 Other chest pain; E11.9 Type 2 diabetes mellitus without complications; Z03.818 Encounter for observation for suspected exposure to other biological agents ruled out; Z79.4 Long term (current) use of insulin; Z79.899 Other long term (current) drug therapy; F17.210 Nicotine dependence, cigarettes, uncomplicated
CPT/HCPCS: 36415; 71046; 71275; 80048; 80076; 82803; 83605; 83880; 84484; 85025; 87040; 87637; 93005; 94640; 96374; 96375; 99284; 99285; J0696; J1271; J2919; Q9967

== ENCOUNTER → 2025-01-11 08:51 | Outpatient (BNV) | payer OTHER, SELFPAY | PROVIDERS: Emergency Provider Emergency Medicine; PCP Internal Medicine Geriatric Medicine; Visit Provider Internal Medicine Cardiovascular Disease | DX: R07.89 Other chest pain (principal) | CPT/HCPCS: 93010 ==

== ENCOUNTER → 2025-01-11 09:00 | Outpatient (BNV) | payer OTHER, SELFPAY | PROVIDERS: Emergency Provider Emergency Medicine; PCP Internal Medicine Geriatric Medicine; Visit Provider Radiology Body Imaging | DX: J98.11 Atelectasis (principal); R06.02 Shortness of breath | CPT/HCPCS: 71046; 71275 ==

== ENCOUNTER 2025-01-16 18:28 | Inpatient (IN) | payer OTHER, SELFPAY ==
--- NOTE | ~2025-01-16 | XR_ITS ---
CLINICAL HISTORY: shortness of breath 2 view chest x-ray Comparison: CT/SR - CT CHEST ANGIOGRAPHY WITH IV CONTRAST - 01/11/25 10:18 EDT CR/SR - XR CHEST 2 VIEWS - 01/11/25 09:09 EDT CR - XR CHEST 1V - 12/04/24 11:47 EDT Findings: Chronic atelectasis of the right middle lobe. No pleural effusion. Normal size heart. No acute fracture. IMPRESSION: 1. No acute findings. This document has been electronically signed by: Jose Ruiz MD on 01/16/2025 20:03:30
[2025-01-16 19:02] VITALS: BP 142/70; PULSE 101; RESP 20; TEMP 36.7; O2SAT 89; BMI 25.5
--- NOTE | 2025-01-16 19:02 | ED.GENADULT ---
HPI - General Adult General Chief complaint: Dyspnea Stated complaint: sob,asthma,copd Time Seen by Provider: 01/16/25 19:31 Source: patient Mode of arrival: ambulatory Limitations: no limitations History of Present Illness ED Provider: HPI narrative: 64-year-old woman with a history of COPD, was seen here proximally a week ago, was discharged with steroids, antibiotics, presents with worsening symptoms, noted to be 88-89% on room air, she is not on oxygen at home. Reports chronic cough. Related Data Home Medications ?Medication ?Instructions ?Recorded ?Confirmed aspirin 81 mg tablet,delayed 81 mg PO BEDTIME 12/24/19 01/11/25 release atorvastatin 80 mg tablet 80 mg PO BEDTIME 12/24/19 01/11/25 carvedilol 6.25 mg tablet 6.25 mg PO BID 12/24/19 01/11/25 cetirizine 10 mg tablet 10 mg PO DAILY PRN allergies 12/24/19 01/11/25 montelukast 10 mg tablet 10 mg PO BEDTIME 12/24/19 01/11/25 omeprazole 20 mg capsule,delayed 20 mg PO BID@1630 12/24/19 01/11/25 release docusate sodium 100 mg capsule 1 cap PO BEDTIME Constipation 01/24/21 01/11/25 blood sugar diagnostic (FreeStyle #10 ea 10/07/21 05/31/24 Lite Strips) lancets 33 gauge (TRUEplus Lancets) #100 ea 10/07/21 05/31/24 naloxone 4 mg/actuation nasal spray 1 spray intranasal ONCE PRN Opioid 10/07/21 01/11/25 Overdose oxycodone-acetaminophen 7.5 mg-325 1 tab PO Q6H PRN severe pain 06/23/22 01/11/25 mg tablet sennosides 8.6 mg tablet (senna) 8.6 mg PO BID Constipation 01/30/23 01/11/25 nebulizers 06/03/23 05/31/24 empagliflozin 10 mg tablet 10 mg PO DAILY 02/10/24 01/11/25 (Jardiance) insulin glargine 100 unit/mL (3 35 unit subcut BID 04/07/24 01/11/25 mL) subcutaneous pen (Lantus Solostar U-100 Insulin) levothyroxine 112 mcg tablet 112 mcg PO DAILY@0600 04/07/24 01/11/25 pregabalin 100 mg capsule 100 mg PO TID 04/07/24 01/11/25 dulaglutide 1.5 mg/0.5 mL 1.5 mg subcut WE@0900 04/21/24 01/11/25 subcutaneous pen injector (Trulicity) fluticasone propionate 50 1 spray intranasal DAILY PRN 04/21/24 01/11/25 mcg/actuation nasal Congestion spray,suspension insulin aspart U-100 100 unit/mL 6 - 10 sliding scale dose subcut 04/21/24 01/11/25 (3 mL) subcutaneous pen (Novolog TIDAC FlexPen U-100 Insulin aspart) ipratropium 20 mcg-albuterol 100 2 puff inhalation BID 04/21/24 01/11/25 mcg/actuation mist for inhalation (Combivent Respimat) baclofen 10 mg tablet 10 mg PO Q8H PRN muscle spasm 12/12/24 01/11/25 fluticasone fur. 100 mcg-umeclid 1 ea inhalation DAILY 01/11/25 01/11/25 62.5 mcg-vilant 25 mcg inhalat.powder (Trelegy Ellipta) lidocaine 5 % topical patch 1 patch topical DAILY PRN Pain 01/11/25 01/11/25 pyridoxine (vitamin B6) 50 mg 50 mg PO BEDTIME 01/11/25 01/11/25 tablet Previous Rx's ?Medication ?Instructions ?Recorded Ventolin HFA 90 mcg/actuation 2 puff inhalation Q4-6H PRN for 07/27/23 aerosol inhaler (albuterol sulfate) wheezing #18 grams arm brace (HANK Elbow Brace) #1 ea 08/27/23 ipratropium 0.5 mg-albuterol 3 mg 3 ml inhalation RQ4H WHILE AWAKE 04/26/24 (2.5 mg base)/3 mL nebulization PRN Shortness Of Breath/Wheezing soln #270 mL allopurinol 100 mg tablet 100 mg PO DAILY 90 days #90 tabs 10/17/24 roflumilast 500 mcg tablet 500 mcg PO DAILY #30 tabs 10/31/24 ondansetron 4 mg disintegrating 4 mg PO Q8H PRN nausea and 12/04/24 tablet vomiting 4 days #14 tabs prednisone 5 mg tablet 5 mg PO DAILY #30 tabs 12/19/24 doxycycline hyclate 100 mg tablet 100 mg PO BID #14 tabs 01/11/25 prednisone 20 mg tablet 20 mg PO BID #6 tabs 01/11/25 Allergies Allergy/AdvReac Type Severity Reaction Status Date / Time HANK Inhibitors (HANK Allergy Severe ANGIO Verified 01/16/25 19:04 INHIBITORS) EDEMA enalapril Allergy Severe Anaphylaxis Verified 01/16/25 19:04 erythromycin base Allergy Severe HIVES ALL Verified 01/16/25 19:04 (ERYTHROMYCIN BASE) OVER metformin Allergy Unknown Verified 01/16/25 19:04 hydromorphone (From DILAUDID) AdvReac Severe TINGLING, Verified 01/16/25 19:04 PT DOES NOT LIKE THE FEELING MED GIVES HER Review of Systems Constitutional: Constitutional: Reports as per HPI [facility] Past Medical History Medical History Chest pain History of RSV infection (03/2024) Hx of influenza (03/2024) Influenza A Asthma-COPD overlap syndrome Allergies History of back pain History of neuropathy Smokes tobacco daily Opioid dependence Nephrolithiasis Hyperlipidemia HTN (hypertension) Cardiomyopathy Myocardial infarction CAD (coronary artery disease) Cough Hypothyroidism, postsurgical Tubular adenoma Diabetes MCKAY (obstructive sleep apnea) Irritable bowel syndrome Hyperthyroidism Polycythemia Smoker Hypoxia COPD exacerbation Lesion of bronchus Tracheal anomaly Multinodular goiter Vitamin D deficiency Atelectasis Subclinical hyperthyroidism Goiter Pneumonia Pulmonary nodules COPD (chronic obstructive pulmonary disease) Surgical History History of coronary artery stent placement Hx of thyroidectomy History of thyroid surgery History of esophagogastroduodenoscopy (EGD) Hx of colonoscopy History of back surgery History of ureterostomy S/P lumpectomy, right breast History of cholecystectomy History of tonsillectomy Family History Family History Father No problems noted. Mother No problems noted. Paternal Aunt Diabetes Social History Social History Household Members: Significant Other Housing: House Are you a primary spiritual care coordinator to a significant other at home: No Do you presently have visiting nurse or other home services: No Alcohol intake: former Comment: declines alarm, steadt to walk short distance to commode Patient Tobacco Use Status: Current everyday Tobacco user Tobacco use type: Cigarette Cigarette Packs Per Day: 0.5 Cigarettes Per Day: 10 Smoked in Last 30 Days: Yes e-Cigarette/Vaping Use: Never Used Second Hand Smoke Exposure: Yes Use of substances other than those prescribed or required for medical reasons: No Substance Use Type: Other Advance Directives: Yes Advance Directives on File: Yes Advance Directives Date on File: 01/24/21 Do you have a plan to hurt others: No Plan service: No Current occupational status: disabled Physical Exam ED Vital Signs: Vital Signs - 24 hr 01/16/25 19:02 01/16/25 20:07 Temperature 98.1 F 98.6 F Pulse Rate 101 H 100 Respiratory Rate 20 20 Blood Pressure 142/70 H 153/85 H Pulse Oximetry 89 L 92 Oxygen Delivery Method Room Air Nasal Cannula Oxygen Flow Rate 2 BMI result Body Mass Index 25.5 Const Other: General: ?Appears of stated age ? ?CV: RRR, no obvious murmurs appreciated ? ?Resp: ?Expiratory wheezing mostly the basis ? Abd: ?Bowel sounds are present, no tenderness no rebound no rigidity ? ?MSK: FROM, strength 5/5 all extremities ? Skin: Warm, dry, intact, ? ?Neuro: ?Alert and oriented x3, moving upper and lower extremities symmetrically, no obvious facial asymmetry noted, cranial nerves 2-12 intact Course Course Course Narrative: RME, this is a rapid medical exam performed by José Shabazz please refer to primary provider for complete H&P- 64-year-old female with a past medical history significant for COPD not on oxygen, CHF, coronary artery disease, IBS, hypothyroidism presents for evaluation of shortness of breath. She was seen here 5 days ago and had a CTA that showed new atelectasis. No evidence of PE. She reports she was discharged home with prednisone antibiotics and has not been getting any better. Oxygen saturation is 89% on room air in triage. Plan for repeat labs and chest x-ray viral swabs Medications Administered Generic Name Dose Route Start Last Admin Trade Name Freq PRN Reason Stop Dose Admin Sodium Chloride 1,000 mls @ 999 mls/hr 01/16/25 20:15 01/16/25 20:39 Ns IV 01/16/25 21:15 999 mls/hr .Q1H1M SOM Administration Discontinued Medications Generic Name Dose Route Start Last Admin Trade Name Nora PRN Reason Stop Dose Admin Ceftriaxone Sodium 2 gm 01/16/25 20:05 01/16/25 20:29 Ceftriaxone Sodium 2 Gm Vial IVPUSH 01/16/25 20:06 2 gm ONCE ONE Administration Methylprednisolone Sodium Succinate 125 mg 01/16/25 20:05 01/16/25 20:29 Methylprednisolone Sod Succ 125 Mg/2 Ml Vial IVPUSH 01/16/25 20:06 125 mg ONCE ONE Administration Medical Decision Making Medical Decision Making MDM Narrative: 8:17 PM 01/16/2025 (Dr. Cj Hunt): Recent ER visit, discharged on steroids and antibiotics, presenting worse, now hypoxic, frequent admissions in the past for CP exacerbation, trying to quit smoking, will cover with IV antibiotics, steroids and admit Differential Diagnosis Differential Diagnoses: The differential diagnosis associated with the presentation includes (CHF, COPD exacerbation, pneumonia, pneumothorax, ACS, PE,) Admission/Observation Consideration of admission/observation: Escalation of care including admission/observation considered Consult Healthcare Provider Management of the patient was discussed with: Hospitalist Lab Data [facility] Lab Attestation statement: I reviewed the patient's lab results. 01/16/25 19:23 01/16/25 19:23 Labs: Lab Results 01/16/25 Range/Units 19:23 WBC 18.1 H (4.8-10.8) X10*3/uL RBC 6.29 H (4.20-5.50) X10*6/uL Hgb 17.6 H (12.0-16.0) g/dl Hct 53.5 H (37.0-47.0) % MCV 85.1 (80.0-98.0) fL MCH 28.0 (27.0-33.0) pg MCHC 32.9 (31.0-35.0) g/dl RDW 14.4 (11.0-16.0) % Plt Count 250 (160-400) X10*3/uL MPV 10.1 (9.4-12.3) fL Immature Gran % (Auto) 0.5 H (0.0-0.4) % Neut % (Auto) 76.5 H (45-73) % Lymph % (Auto) 16.7 L (20-40) % [place] % (Auto) 5.9 (2-11) % Eos % (Auto) 0.1 (0-4) % Baso % (Auto) 0.3 (0-2) % Lymph # (Auto) 3.0 (1.2-4.9) X10*3/uL [place] # (Auto) 1.1 (0.1-1.2) X10*3/uL Eos # (Auto) 0.0 (0.0-0.4) X10*3/uL Baso # (Auto) 0.1 (0.0-0.2) X10*3/uL Abs Immat Gran (auto) 0.09 H (0.00-0.03) X10*3/uL Absolute Neuts (auto) 13.9 H (2.0-8.3) x10*3/uL Absolute Nucleated RBC 0.000 (0.0-0.012) X10*3/uL Nucleated RBC % (auto) 0.0 (0.0-0.2) /100WBC Sodium 139 (135-145) mmol/L Potassium 4.1 (3.3-5.1) mmol/L Chloride 107 (96-108) mmol/L Carbon Dioxide 20 L (22-29) mmol/L Anion Gap 16 (12-20) BUN 25 H (9-16) mg/dL Creatinine 0.96 (0.5-1.4) mg/dL Estim Creat Clear Calc 57.2 Estimated GFR 58 Random Glucose 364 H* (60-115) mg/dL Lactic Acid 2.0 (0.5-2.0) mmol/L Calcium 8.9 (8.4-10.2) mg/dL Total Bilirubin 0.6 (0.0-1.0) mg/dL AST 29 (5-31) U/L ALT 39 H (0-31) U/L Alkaline Phosphatase 84 (39-117) U/L Total Protein 6.9 (6.5-8.0) g/dL Albumin 4.1 (3.5-5.0) g/dL Lipase 19 (8-78) U/L COVID-19 (TIMMY) Negative (Negative) COVID-19 Clin Com See Note Influenza Type A (POLLY) Negative (Negative) Influenza Type B (POLLY) Negative (Negative) Influenza A & B Note See Note Independent Interpretation I performed an independent interpretation of an: EKG (93 beats per minute otherwise normal ECG without dysrhythmia, AV rach blocks or ST-T changes to suspect underlying ACS, my independent interpretation) and Plain X-Ray (I am appreciating consolidation on the lateral x-ray anterior cardiac) Radiology Impression Discussion of test interpretation with radiology: I have reviewed the radiologist's reading. Discharge Plan Discharge Clinical Impression: COPD (chronic obstructive pulmonary disease), Community acquired pneumonia Patient Disposition: Admitted As Inpatient Print Language: Marshallese
--- NOTE | 2025-01-16 19:05 | PC.NURSE ---
sats 89-90% on ra, pt reports with hx copd baseline o2 94-95%. placed on 1.5L NC. [facility] medical front desk specialist made aware. resp are even and unlabored. awaiting bed availability.
--- NOTE | 2025-01-16 19:06 | ECG_ITS ---
Test Reason : SOB Blood Pressure : */* mmHG Vent. Rate : 93 BPM Atrial Rate : 93 BPM P-R Int : 128 ms QRS Dur : 90 ms QT Int : 372 ms P-R-T Axes : 80 -65 37 degrees QTcB Int : 462 ms Normal sinus rhythm Left axis deviation Pulmonary disease pattern RSR' or QR pattern in V1 suggests right ventricular conduction delay Abnormal ECG When compared with ECG of 11-Jan-2025 08:51, RSR' pattern in V1 is now Present Referred By: Ruddy Shabazz Electronically Signed By: DAVI KEEN MD
[2025-01-16 19:31] LABS: Hematocrit 53.5 % (37.0-47.0); Hemoglobin 17.6 g/dl (12.0-16.0); Imm Gran Abs Auto 0.09 X10*3/uL (0.00-0.03); Imm Gran Pct Auto 0.5 % (0.0-0.4); Lymphocytes Absolute Auto 3.0 X10*3/uL (1.2-4.9); MANUAL DIFF FLAG NO; Mean Corpuscular HGB Conc 32.9 g/dl (31.0-35.0); Mean Corpuscular Hemoglobin 28.0 pg (27.0-33.0); Mean Corpuscular Volume 85.1 fL (80.0-98.0); NRBC Abs Auto 0.000 X10*3/uL (0.0-0.012); NRBC Pct Auto 0.0 /100WBC (0.0-0.2); Platelet Count 250 X10*3/uL (160-400); Red Blood Count 6.29 X10*6/uL (4.20-5.50); White Blood Count 18.1 X10*3/uL (4.8-10.8)
--- NOTE | 2025-01-16 19:43 | PC.NURSE ---
this RN assumed care at this time, provider currently at the bedside assessing the pt
[2025-01-16 19:45] LABS: COVID-19 Test Negative (Negative); IDNOW Serial# 58CA691E
[2025-01-16 19:49] LABS: IDNOW Serial# 55D5AD1C; Influenza B2 Negative (Negative)
[2025-01-16 20:07] VITALS: BP 153/85; PULSE 100; RESP 20; TEMP 37; O2SAT 92
[2025-01-16 20:14] LABS: Alanine Aminotransferase 39 U/L (0-31); Albumin Level 4.1 g/dL (3.5-5.0); Alkaline Phosphatase 84 U/L (39-117); Anion Gap 16 (12-20); Aspartate Amino Transferase 29 U/L (5-31); Blood Urea Nitrogen 25 mg/dL (9-16); Calcium 8.9 mg/dL (8.4-10.2); Carbon Dioxide 20 mmol/L (22-29); Chloride 107 mmol/L (96-108); Creatinine Clr Calc Pharmacy 57.2; Estimated Glomerular Filt Rate 58; Lipase 19 U/L (8-78); Potassium 4.1 mmol/L (3.3-5.1); Sodium 139 mmol/L (135-145); Total Protein 6.9 g/dL (6.5-8.0)
--- NOTE | 2025-01-16 20:43 | PM.IMHP ---
History of Present Illness Date of Service: 01/16/25 Chief Complaint: Shortness of breath 64-year-old female with a past medical history of HTN, HLD, asthma/COPD, hypothyroidism, cardiomyopathy, CAD, diabetes, tobacco dependence, pulmonary nodules, irritable bowel syndrome, MCKAY presented to the hospital today with a chief complaint of shortness of breath. Patient reported that she has been having shortness of breath the past couple of weeks. Initially present to the ER about week ago and was given prednisone and doxycycline but continued to have shortness of breath and presented to the ER. Reports having cough. Denies any fevers. Denies any sick contacts. Denies any chest pain or palpitations. Review of all other systems is negative except mentioned above ER course: Per ER physician, patient noted to be wheezing bilaterally; mildly hypoxic; placed on supplemental oxygen; patient had CT chest done 5 days ago which showed no evidence of PE but not have findings concerning for pneumonia. Patient also already received doxycycline as outpatient. Given nebulizations and steroids. Given antibiotics. [facility] Medical History Chest pain History of RSV infection (03/2024) Hx of influenza (03/2024) Influenza A Asthma-COPD overlap syndrome Allergies History of back pain History of neuropathy Smokes tobacco daily Opioid dependence Nephrolithiasis Hyperlipidemia HTN (hypertension) Cardiomyopathy Myocardial infarction CAD (coronary artery disease) Cough Hypothyroidism, postsurgical Tubular adenoma Diabetes MCKAY (obstructive sleep apnea) Irritable bowel syndrome Hyperthyroidism Polycythemia Smoker Hypoxia COPD exacerbation Lesion of bronchus Tracheal anomaly Multinodular goiter Vitamin D deficiency Atelectasis Subclinical hyperthyroidism Goiter Pneumonia Pulmonary nodules COPD (chronic obstructive pulmonary disease) Family History Father No problems noted. Mother No problems noted. Paternal Aunt Diabetes Surgical History History of coronary artery stent placement Hx of thyroidectomy History of thyroid surgery History of esophagogastroduodenoscopy (EGD) Hx of colonoscopy History of back surgery History of ureterostomy S/P lumpectomy, right breast History of cholecystectomy History of tonsillectomy Social History Household Members: Significant Other Housing: House Are you a primary healthcare sales representative to a significant other at home: No Do you presently have visiting nurse or other home services: No Alcohol intake: former Comment: eddie sheikh to walk short distance to commode Patient Tobacco Use Status: Current everyday Tobacco user Tobacco use type: Cigarette Cigarette Packs Per Day: 0.5 Cigarettes Per Day: 10 Smoked in Last 30 Days: Yes e-Cigarette/Vaping Use: Never Used Second Hand Smoke Exposure: Yes Use of substances other than those prescribed or required for medical reasons: No Substance Use Type: Other Advance Directives: Yes Advance Directives on File: Yes Advance Directives Date on File: 01/24/21 Do you have a plan to hurt others: No Plan service: No Current occupational status: disabled Meds Allergies Allergy/AdvReac Type Severity Reaction Status Date / Time HANK Inhibitors (HANK Allergy Severe ANGIO Verified 01/16/25 19:04 INHIBITORS) EDEMA enalapril Allergy Severe Anaphylaxis Verified 01/16/25 19:04 erythromycin base Allergy Severe HIVES ALL Verified 01/16/25 19:04 (ERYTHROMYCIN BASE) OVER metformin Allergy Unknown Verified 01/16/25 19:04 hydromorphone (From DILAUDID) AdvReac Severe TINGLING, Verified 01/16/25 19:04 PT DOES NOT LIKE THE FEELING MED GIVES HER Active Medications: Current Medications Acetaminophen (Acetaminophen 325 Mg Tablet) 650 mg PO Q6H PRN PRN Reason: Pain, Mild 1-3,fever,headache Albuterol/Ipratropium (Albuterol/Iprat 2.5/0.5mg 3 Ml Ampul.Neb) 3 ml INHALE Q4H PRN PRN Reason: Shortness of Breath/Wheezing Benzonatate (Benzonatate 100 Mg Capsule) 100 mg PO TID PRN PRN Reason: Cough Calcium Carbonate (Calcium Carbonate 750 Mg Tab.Chew) 750 mg PO Q4H PRN PRN Reason: Heartburn Ceftriaxone Sodium (Ceftriaxone Sodium 1 Gm Vial) 1 gm IVPUSH Q24H SOM Doxycycline Monohydrate (Doxycycline Monohydrate 100 Mg Capsule) 100 mg PO Q12H SOM Enoxaparin Sodium (Enoxaparin Sodium 40 Mg/0.4 Ml Syringe) 40 mg SUBCUT Q24H SOM Famotidine (Famotidine 20 Mg Tablet) 20 mg PO DAILY SOM Sodium Chloride (Ns) 1,000 mls @ 999 mls/hr IV .Q1H1M [facility] Stop: 01/16/25 21:15 Last Admin: 01/16/25 20:39 Dose: 999 mls/hr Magnesium Hydroxide (Milk Of Magnesia 30 Ml Oral.Susp) 30 ml PO DAILY PRN PRN Reason: Constipation Melatonin (Melatonin 3 Mg Tablet) 6 mg PO BEDTIME PRN PRN Reason: Insomnia Methylprednisolone Sodium Succinate (Methylprednisolone Sod Succ 40 Mg/Ml Vial) 40 mg IVPUSH Q6H [facility] Sodium Chloride (0.9 % Sodium Chloride Flush 3 Ml Syringe) 3 ml IVFLUSH QSHIFT [facility] Home Medications ?Medication ?Instructions ?Recorded ?Confirmed ?Last Taken ?Type aspirin 81 mg tablet,delayed 81 mg PO BEDTIME 12/24/19 01/11/25 01/09/25 History release atorvastatin 80 mg tablet 80 mg PO BEDTIME 12/24/19 01/11/25 01/09/25 History carvedilol 6.25 mg tablet 6.25 mg PO BID 12/24/19 01/11/25 01/11/25 History cetirizine 10 mg tablet 10 mg PO DAILY PRN allergies 12/24/19 01/11/25 04/07/24 History montelukast 10 mg tablet 10 mg PO BEDTIME 12/24/19 01/11/25 01/09/25 History omeprazole 20 mg capsule,delayed 20 mg PO BID@1630 12/24/19 01/11/25 01/09/25 History release docusate sodium 100 mg capsule 1 cap PO BEDTIME Constipation 01/24/21 01/11/25 01/09/25 History blood sugar diagnostic (FreeStyle #10 ea 10/07/21 05/31/24 10/20/22 09:00 History Lite Strips) lancets 33 gauge (TRUEplus Lancets) #100 ea 10/07/21 05/31/24 10/20/22 09:00 History naloxone 4 mg/actuation nasal spray 1 spray intranasal ONCE PRN Opioid 10/07/21 01/11/25 01/29/23 History Overdose oxycodone-acetaminophen 7.5 mg-325 1 tab PO Q6H PRN severe pain 06/23/22 01/11/25 09/01/24 History mg tablet sennosides 8.6 mg tablet (senna) 8.6 mg PO BID Constipation 01/30/23 01/11/25 01/09/25 History nebulizers 06/03/23 05/31/24 Unknown History empagliflozin 10 mg tablet 10 mg PO DAILY 02/10/24 01/11/25 01/09/25 History (Jardiance) insulin glargine 100 unit/mL (3 35 unit subcut BID 04/07/24 01/11/25 01/09/25 History mL) subcutaneous pen (Lantus Solostar U-100 Insulin) levothyroxine 112 mcg tablet 112 mcg PO DAILY@0600 04/07/24 01/11/25 01/09/25 History pregabalin 100 mg capsule 100 mg PO TID 04/07/24 01/11/25 01/11/25 History dulaglutide 1.5 mg/0.5 mL 1.5 mg subcut WE@0900 04/21/24 01/11/25 01/04/25 History subcutaneous pen injector (Trulicity) fluticasone propionate 50 1 spray intranasal DAILY PRN 04/21/24 01/11/25 09/01/24 History mcg/actuation nasal Congestion spray,suspension insulin aspart U-100 100 unit/mL 6 - 10 sliding scale dose subcut 04/21/24 01/11/25 01/09/25 History (3 mL) subcutaneous pen (Novolog TIDAC FlexPen U-100 Insulin aspart) ipratropium 20 mcg-albuterol 100 2 puff inhalation BID 04/21/24 01/11/25 01/09/25 History mcg/actuation mist for inhalation (Combivent Respimat) baclofen 10 mg tablet 10 mg PO Q8H PRN muscle spasm 12/12/24 01/11/25 Unknown History fluticasone fur. 100 mcg-umeclid 1 ea inhalation DAILY 01/11/25 01/11/25 01/09/25 History 62.5 mcg-vilant 25 mcg inhalat.powder (Trelegy Ellipta) lidocaine 5 % topical patch 1 patch topical DAILY PRN Pain 01/11/25 01/11/25 Unknown History pyridoxine (vitamin B6) 50 mg 50 mg PO BEDTIME 01/11/25 01/11/25 01/09/25 History tablet Physical Exam Vital Signs and Narrative: Vital Signs: Last Vital Signs Temp 98.6 F 01/16/25 20:07 Pulse 100 01/16/25 20:07 Resp 20 01/16/25 20:07 BP 153/85 H 01/16/25 20:07 Pulse Ox 92 01/16/25 20:07 O2 Del Method Nasal Cannula 01/16/25 20:07 O2 Flow Rate 2 01/16/25 20:07 BMI result Body Mass Index 25.5 Gen: Appears be in no acute distress HEENT: NCAT, Moist mucosa. Pulmonary: Bilateral wheezing present CVS: Normal S1-S2 Abdomen: BS+, Soft, Nontender Extremities: Warm well perfused Neuro: Alert and awake. Results Labs 01/16/25 19:23 01/16/25 19:23 Labs: Laboratory Results - last 24 hr 01/16/25 19:23 MCV 85.1 MCH 28.0 MCHC 32.9 RDW 14.4 Plt Count 250 MPV 10.1 Immature Gran % (Auto) 0.5 H Neut % (Auto) 76.5 H Lymph % (Auto) 16.7 L [place] % (Auto) 5.9 Eos % (Auto) 0.1 Baso % (Auto) 0.3 Lymph # (Auto) 3.0 [place] # (Auto) 1.1 Eos # (Auto) 0.0 Baso # (Auto) 0.1 Abs Immat Gran (auto) 0.09 H Absolute Neuts (auto) 13.9 H Absolute Nucleated RBC 0.000 Nucleated RBC % (auto) 0.0 Anion Gap 16 Estim Creat Clear Calc 57.2 Estimated GFR 58 Random Glucose 364 H* Lactic Acid 2.0 Calcium 8.9 Total Bilirubin 0.6 AST 29 ALT 39 H Alkaline Phosphatase 84 Total Protein 6.9 Albumin 4.1 Lipase 19 COVID-19 (ITMMY) Negative COVID-19 Clin Com See Note Influenza Type A (POLLY) Negative Influenza Type B (POLLY) Negative Influenza A & B Note See Note Assessment and Plan (1) COPD (chronic obstructive pulmonary disease): Qualifiers: COPD type: unspecified COPD Qualified Code(s): J44.9 - Chronic obstructive pulmonary disease, unspecified Status: Acute Plan 64-year-old female with a past medical history of HTN, HLD, asthma/COPD, hypothyroidism, cardiomyopathy, CAD, diabetes, tobacco dependence, pulmonary nodules, irritable bowel syndrome, MCKAY presented to the hospital today with a chief complaint of shortness of breath. Noted to be in acute COPD exacerbation. Acute COPD exacerbation: Acute hypoxic respiratory failure: Pneumonia: Patient failed outpatient therapy. Patient had recent CT chest showed evidence of PE. But noted to have pneumonia. Current chest x-ray negative Continue nebulizations standing and p.r.n. Continue Solu-Medrol Empirically covered with ceftriaxone and doxycycline Trending pulse oximetry when ready for discharge Tobacco dependence: Counseled on smoking cessation Diabetes: Insulin sliding scale For all other chronic conditions, home medications to be resumed once med rec is completed by the pharmacy. DVT prophylaxis: Lovenox Code status: Full code Quality Stroke Does the patient have a stroke diagnosis?: No VTE Prior VTE?: No VTE Risk Level:: Medical - moderate - high VTE Device Contraindication: Treatment Not Indicated VTE Drug Contraindication: N/A - Med Ordered
[2025-01-16] MEDS: Albuterol/Iprat 2.5/0.5MG 3 ML AMPUL.NEB INHALE (21:02)
[2025-01-16 21:03] VITALS: PULSE 94; RESP 20; O2SAT 93
--- OUTSIDE RECORDS SUMMARY | 2025-01-16 21:11 | XMS_ITS | Encounter Summary ---
Author Organization [employer] Address [address] [place] [address] 7t [place] [address] Care Team Providers Care Tug Boat Engineer Name Role Phone Name, Bobby GRADY Primary Care Provider [phone] Inga Magaña PharmD Unavailable Reason for Visit * Reason Comments Med Refill Encounter Details Date Type Department Care Team (Late st Contact Info) Description 04/07/2022 Refill [facility] [address] [facility] [place] [address] Sherly Pichardo, SCREENING NURSE [address] [place] [address] Chronic low back pain with sciatica, sciatica [...] 01/25/2025 9:30 AM EDT Office Visit [facility] MEDICINE [address] [place] [address] Name, MD Bobby Lamont [facility] [place] [address] 02/10/2025 9:30 AM EST Telemedicine [facility] MEDICINE 230 [place] [address] Skye Melton, HODA 03/14/2025 10:00 AM EST Office Visit [facility] OPTOMETRY [address] [place] [address] Abbey Deng, KIKA [address] [place] [address] documented as of this encounter Visit Diagnoses Diagnosis Chronic low back pain with sciatica, sciatica laterality unspecified, unspecified back pain laterality documented in this encounter Additional Health Concerns Assessment Noted Time PHQ-9 Depression Total Score: 0 03/11/20 22 11:47 AM EST documented as of this encounter Care Teams Tug Boat Engineer Relationship Specialty Start Date End Date Name, [place] [address] PCP - General Family Medicine 06/01/15 Inga Magaña PharmD [address] [place] [address] Pharmacist Internal Medicine 01/07/23 09/29/23 [place] 05/13/24 documented as of this encounter
--- OUTSIDE RECORDS SUMMARY | 2025-01-16 21:11 | XMS_ITS | Encounter Summary ---
Author Organization [employer] Address [address] [place] [address] [place], [place] [address] Care Team Providers Care Carrier Blower Name Role Phone Name, Bobby GRADY Primary Care Provider [phone] Inga Magaña PharmD Unavailable [phone] Reason for Referral * Imaging (Routine) - Closed Specialty Diagnoses / Procedures Referred By Contac t Referred To Contact Diagnoses Other ovarian cyst, right side Procedures US Pelvis Transvaginal Monisha Linton CNM [address] [place] [address] Phone: tel: fax: [facility] MRI and CT Scan [address] [place] [address] Phone: tel: fax: Referral ID Status Reason Start Date Expiration Date Visits Re quested Visits Authorized [id number] Closed 04/01/2022 09/28/2022 1 1 Encounter Details Date Type Department Care Team ([facility] st Contact Info) Description 04/01/2022 Orders Only [facility]INE [address] [place], [place] [phone] Monisha Linton CNM [address] [place], [place] [phone] Other ovarian cyst, right side (Primary Dx) [...] 01/25/2025 9:30 AM EDT Office Visit [facility] [address] [place] [address] Name, MD Bobby [address] [place] [address] 02/10/2025 9:30 AM EST Telemedicine [facility] [address] [place] [address] Skye Melton, HODA 03/14/2025 10:00 AM EST Office Visit [facility] OPTOMETRY [address] [place] [address] Abbey Deng, OD [address] [place] [address] Scheduled Orders Name Type Priority Associated Diagnoses [...] documented as of this encounter Care Teams Carrier Blower Relationship Specialty Start Date End Date Name, MD Bobby [address] [place] [address] PCP - General Family Medicine 06/01/15 Inga Magaña, MiltonD 230 [place] [address] Pharmacist Internal Medicine 01/07/23 09/29/23 [place] 05/13/24 documented as of this encounter
--- OUTSIDE RECORDS SUMMARY | 2025-01-16 21:11 | XMS_ITS | Encounter Summary ---
Author Organization [employer] Address [address] [facility] 7t [place] [address] Care Team Providers Care Trailer Chief Name Role Phone Name, Bobby GRADY Primary Care Provider [phone] Inga Magaña PharmD Unavailable [phone] Reason for Visit * Reason Comments Med Change Request Encounter Details Date Type Department Care Team ([facility] st Contact Info) Description 06/09/2023 Refill [facility] 230 [place] [address] Name, MD Bobby [address] [place] [address] Social History Tobacco Use Types Packs/Day Years [...] 01/25/2025 9:30 AM EDT Office Visit [facility] MED[facility]INE [address] [place] [address] Name, MD Bobby [address] [place] [address] 02/10/2025 9:30 AM EST Telemedicine [facility] [address] [place] [address] Skye Melton, HODA 03/14/2025 10:00 AM EST Office Visit [facility] OPTOMETRY [address] [place] [address] Abbey Deng, OD [address] [place] [address] documented as of this encounter Goals Goal Patient Goal Type Associated Problems Recent Progress Patient-Stated? Author Smoking cessation General No Inga Magaña, PharmD documented as of this encounter Visit Diagnoses Not on filedocumented in this encounter Additional Health Concerns Assessment Noted Time PHQ-9 Depression Total Score: 0 03/11/20 11:47 AM EST documented as of this encounter Care Teams Trailer Chief Relationship Specialty Start Date End Date NameBobby MD [address] [place] [address] PCP - General Family Medicine 06/01/15 Inga Magaña, PharmD [address] [place] [address] Pharmacist Internal Medicine 01/07/23 09/29/23 [place] 05/13/24 documented as of this encounter
--- OUTSIDE RECORDS SUMMARY | 2025-01-16 21:11 | XMS_ITS | Encounter Summary ---
Author Organization [employer] Address [address] [facility] 7t [place] [address] Care Team Providers Care Accounting Systems Analyst Name Role Phone Name, Bobby GRADY Primary Care Provider [phone] Inga Magaña PharmD Unavailable [phone] Reason for Visit * Reason Comments Med Refill Encounter Details Date Type Department Care Team ([facility] st Contact Info) Description 04/28/2023 Refill [facility] [address] [place] [address] Name, MD Bobby 230 [place] [address] Social History Tobacco Use Types Packs/Day Years [...] Description 01/25/2025 9:30 AM EDT Office Visit [facility] [address] [place] [address] Name, MD Bobby [address] [place] [address] 02/10/2025 9:30 AM EST Telemedicine [facility] [address] [place] [address] Skye Melton, HODA 03/14/2025 10:00 AM EST Office Visit [facility] OPTOMETRY [address] [place] [address] Abbey Deng, OD [address] [place] [address] documented as of this encounter Goals Goal Patient Goal Type Associated Problems Recent Progress Patient-Stated? Author Smoking cessation General No Inga Magaña, PharmD documented as of this encounter Visit Diagnoses Not on filedocumented in this encounter Additional Health Concerns Assessment Noted Time PHQ-9 Depression Total Score: 0 03/11/20 11:47 AM EST documented as of this encounter Care Teams Accounting Systems Analyst Relationship Specialty Start Date End Date NameBobby MD [address] [place] [address] PCP - General Family Medicine 06/01/15 Inga Magaña, PharmD [address] [place] [address] Pharmacist Internal Medicine 01/07/23 09/29/23 [place] 05/13/24 documented as of this encounter
--- OUTSIDE RECORDS SUMMARY | 2025-01-16 21:11 | XMS_ITS | Encounter Summary ---
Author Organization [employer] Address [address] [place] [address] [place], [place] [address] Care Team Providers Care Hospice Spiritual Care Coordinator Name Role Phone Bobby David MD Primary Care Provider Inga Magaña PharmD Unavailable [phone] Reason for Visit * Reason Onset Date Comments Referral 04/23/2022 Encounter Details Date Type Department Care Team (Late st Contact Info) Description 04/23/2022 Telephone [facility] 230 [place] [address] NameBobby MD [address] [place] [address] Referral Social History Tobacco Use Types Packs/Day [...] Miscellaneous Notes * Telephone Encounter - Bobby Dvaid MD - 04/23/2022 1:49 PM EST done * Telephone Encounter - Dasia Sherwood RN - 04/23/2022 1:37 PM EST T/c to pt in regards to message below. Pt wants referral to see Gastroenterology in [facility], as pt has hx of colon cancer and has been waiting 10 years for colonoscopy. Pt stated June at [facility] has an apptset up for pt on May 13 and needs referral placed before then. Pt verbalized understanding and denied having any further questions or concerns at this time. * Telephone Encounter - Octavio Holliday - 04/23/2022 11:46 AM EST Tc from pt requesting an referral to see an gastroenterology at [facility] Please contact pt at [phone] documented in this encounter Plan of Treatment Upcoming Encounters Date Type Department Care Team (Late st Contact Info) Description 01/25/2025 9:30 AM EDT Office Visit [facility] [address] [place] [address] Name, MD Bobby [address] [place] [address] 02/10/2025 9:30 AM EST Telemedicine [facility] [address] [place] [address] Skye Melton RN 03/14/2025 10:00 AM EST Office Visit [facility] OPTOMETRY [address] [place] [address] Abbey Deng, OD [address] [place] [address] documented as of this encounter Visit Diagnoses Diagnosis History of colon polyps- Primary Family history of colon cancer Family history of malignant neoplasm of gastrointestinal tract documented in this encounter Additional Health Concerns Assessment Noted Time PHQ-9 Depression Total Score: 0 03/11/20 11:47 AM EST documented as of this encounter Care Teams Hospice Spiritual Care Coordinator Relationship Specialty Start Date End Date Name, MD Bobby [address] [place] [phone] PCP - General Family Medicine 06/01/15 Inga Magaña, MiltonD [address] [place] [address] [place] [phone] Pharmacist Internal Medicine 01/07/23 09/29/23 [place] 05/13/24 documented as of this encounter
--- OUTSIDE RECORDS SUMMARY | 2025-01-16 21:12 | XMS_ITS | Encounter Summary ---
Author Organization [employer] Address [address] [facility] 7t [place] [address] Care Team Providers Care Vegetables Cook Name Role Phone Name, Bobby GRADY Primary Care Provider [phone] Inga Magaña PharmD Unavailable [phone] Reason for Visit * Reason Onset Date Comments Med Refill 05/26/2023 Encounter Details Date Type Department Care Team (Late st Contact Info) Description 05/26/2023 Telephone [facility] 230 [place] [address] Name, MD Bobby [address] [place] [address] Med Refill Social History Tobacco Use Types [...] 7.5-325 MG tablet To be sent to: [facility] [place], [place] - [address] [place] [address] documented in this encounter Plan of Treatment Upcoming Encounters Date Type Department Care Team ([facility] st Contact Info) Description 01/25/2025 9:30 AM EDT Office Visit [facility] [address] [place] [address] Name, MD Bobby [address] [place] [address] 02/10/2025 9:30 AM EST Telemedicine [facility] [address] [place] [address] Skye Melton, RN 03/14/2025 10:00 AM EST Office Visit [facility] OPTOMETRY [address] [place] [address] Abbey Deng, KIKA [address] [place] [address] documented as of this encounter Goals Goal Patient Goal Type Associated Problems Recent Progress Patient-Stated? Author Smoking cessation General No Inga Magaña, PharmD documented as of this encounter Visit Diagnoses Not on filedocumented in this encounter Additional Health Concerns Assessment Noted Time PHQ-9 Depression Total Score: 0 03/11/20 22 11:47 AM EST documented as of this encounter Care Teams Vegetables Cook Relationship Specialty Start Date End Date Name, MD Bobby [address] [place] [address] PCP - General Family Medicine 06/01/15 Inga Magaña, PharmD [address] [place] [address] Pharmacist Internal Medicine 01/07/23 09/29/23 [place] 05/13/24 documented as of this encounter
--- OUTSIDE RECORDS SUMMARY | 2025-01-16 21:12 | XMS_ITS | Encounter Summary ---
Author Organization [employer] Address [address] [facility] [address] [place] [address] Care Team Providers Care Content Management Consultant Name Role Phone Name, Bobby GRADY Primary Care Provider [phone] Encounter Details Date Type Department Care Team (Late st Contact Info) Description 01/16/2025 Orders Only GENERIC EXTERNAL DATA DEPARTMENT Provider, [...] Upcoming Encounters Date Type Department Care Team ([facility] st Contact Info) Description 01/25/2025 9:30 AM EDT Office Visit [facility] MEDICINE [address] [place] [phone] Name, MD Bobby [address] [place] [phone] 02/10/2025 9:30 AM EST Telemedicine [facility] MEDICINE [address] [place] [address] Skye Melton, HODA 03/14/2025 10:00 AM EST Office Visit [facility] OPTOMETRY [address] [place] [address] Abbey Deng, OD [address] [place] [address] documented as of this encounter Goals Goal Patient Goal Type Associated Problems Recent Progress Patient-Stated? Author Smoking cessation General No Inga Magaña, MiltonD documented as of this encounter Procedures Procedure Name Priority Date/Time Associated Diagnosis Comments XR CHEST 2 VIEWS Routine 01/16/2025 8:03 PM EDT INFLUENZA A B2 ID NOW (RYDER) Routine 01/16/2025 7:23 PM EDT COVID-19 ID NOW (RYDER) Routine 01/16/2025 7:23 PM EDT CBC WITH AUTO DIFFERENTIAL Routine 01/16/2025 7:23 PM EDT LIPASE Routine 01/16/2025 7:23 PM EDT LACTIC ACID Routine 01/16/2025 7:23 PM EDT COMPREHENSIVE METABOLIC PANEL Routine 01/16/2025 7:23 PM EDT documented in this encounter Results * XR Chest 2 Views (01/16/2025 8:03 PM EDT) Anatomical Region Laterality Modality Chest Radiographic Ludivina ging 01/16/2025 8:03 PM EDT Narrative 01/16/2025 8:04 PM EDT [place] [address] XRay Report Signed Patient: Marita Zapata MR#: [id number] : 1960 Acct:[id number] Age/Sex: 64 / F ADM Date: 01/16/25 Loc: .ED Attending Dr: Ordering Physician: Ruddy Shabazz Date of Service: 01/16/25 Procedure(s): XR chest 2V Accession Number(s): [id number] cc: Name,Bobby GRADY; Ruddy Shabazz Reason for Exam: shortness of breath CLINICAL HISTORY: shortness of breath 2 view chest x-ray Comparison: CT/SR - CT CHEST ANGIOGRAPHY WITH IV CONTRAST - 01/11/25 10:18 EDT CR/SR - XR CHEST 2 VIEWS - 01/11/25 09:09 EDT CR - XR CHEST 1V - 12/04/24 11:47 EDT Findings: Chronic atelectasis of the right middle lobe. No pleural effusion. Normal size heart. No acute fracture. IMPRESSION: 1. No acute findings. This document has been electronically signed by: Jose Ruiz MD on 01/16/2025 20:03:30 Dictated By: Jose Ruiz MD Signed By: <Electronically signed by Jose Ruiz MD in OV> 01/16/252003 DD/ 02 TD/TT: 01/16/252002 Machine Brusher: Procedure Note Donotearleter, Image - 01/16/[address] [address] XRay Report Signed Patient: Marita Zapata [facility]#: [id number] : 1960Acct:[id number] Age/Sex: 64 / FADM Date: 01/16/25 Loc: HO.ED Attending Dr: Ordering Physician: Ruddy Shabazz Date of Service: 01/16/25 Procedure(s): XR chest 2V Accession Number(s): [id number] cc: Name,Bobby GRADY; Ruddy Shabazz Reason for Exam: shortness of breath CLINICAL HISTORY: shortness of breath 2 view chest x-ray Comparison: CT/SR - CT CHEST ANGIOGRAPHY WITH IV CONTRAST - 01/11/25 10:18 EDT CR/SR - XR CHEST 2 VIEWS - 01/11/25 09:09 EDT CR - XR CHEST 1V - 12/04/24 11:47 EDT Findings: Chronic atelectasis of the right middle lobe. No pleural effusion. Normal size heart. No acute fracture. IMPRESSION: 1. No acute findings. This document has been electronically signed by: Jose Ruiz MD on 01/16/2025 20:03:30 Dictated By: Jose Ruiz MD Signed By: <Electronically signed by Jose Ruiz MD in OV> 01/16/252003 DD/ 02 TD/TT: 01/16/252002 Machine Brusher: [facility] External Provider IMG XR PROCEDURES Edited Result - Final * Lipase (01/16/2025 7:23 PM EDT) Lipase 19 8 - 78 U/L [facility] 01/16/2025 7:23 PM EDT 01/16/2025 7:28 PM EDT us Generic External Data Provider LAB BLOOD ORDERAB LES Final Result [facility] [address] [place] [phone] * (ABNORMAL) Comprehensive Metabolic Panel (01/16/2025 7:23 PM EDT) Sodium 139 135 - 145 mmol/L [facility] Potassium 4.1 3.3 - 5.1 mmol/L [facility] Chloride 107 96 - 108 mmol/L [facility] Carbon Dioxide 20(L) 22 - 29 mmol/L [facility] Anion Gap 16 12 - 20 [facility] Urea Nitrogen (BUN) 25(H) 9 - 16 mg/dL [facility] Creatinine, Serum 0.96 0.5 - 1.4 mg/dL [facility] Creatinine Clr Calc Pharmacy 57.2 [facility] Comment:Provided height and weight: 165.1 cm,69.6 kg.eGFR (calculated from the MDRD study equation) and eCrCl(calculated from the Cockcroft-Gault equation) are based ondifferent parameters and may not yield comparable results.If eCrCl result is absurd, please check patient'sheight/weight. Estimated Glomerular Filt Rate 58 [facility] Comment:Chronic Kidney Disea se: Estimated GFR < 60 mL/min/1.40s2Tqxysn Kidney Disease: Estimated GFR < 15 mL/min/1.73m2 Glucose 364(HH) 60 - 115 mg/dL [facility] Comment:Critical value for t est(s): GLU Results called to and readback by: ADIA Person calling:TAMEKA Date:01/16/25Time: 2012 Calcium 8.9 8.4 - 10.2 mg/dL [facility] Bilirubin, Total 0.6 0.0 - 1.0 mg/dL [facility] Aspartate Amino Transferase 29 5 - 31 U/L [facility] Alanine Aminotransferase 39(H) 0 - 31 U/L [facility] Total Protein 6.9 6.5 - 8.0 g/dL [facility] Albumin Level 4.1 3.5 - 5.0 g/dL [facility] Alkaline Phosphatase 84 39 - 117 U/L [facility] 01/16/2025 7:23 PM EDT 01/16/2025 7:28 PM EDT Generic External Data Provider LAB BLOOD ORDERAB LES Final Result Performing Organization Address City/[facility]/ZIP Co de Phone Number [facility] [address] [place] [phone] * Lactic Acid (01/16/2025 7:23 PM EDT) Lactic Acid 2.0 0.5 - 2.0 mmol/L [facility] 01/16/2025 7:23 PM EDT 01/16/2025 7:28 PM EDT Generic External Data Provider LAB BLOOD ORDERAB LES Final Result Performing Organization Address [facility] Co de Phone Number [facility] [address] [place] [phone] * Influenza A B2 ID NOW (Ryder) (01/16/2025 7:23 PM EDT) IDNOW SERIAL# [id number] [facility] Influenza A Negative Negative [facility] Influenza B2 Negative Negative [facility] Influenza A B2 Note See Note [facility] Comment:The Ryder ID NOW In fluenza A B2 test is used for thequalitative detection of influenza A and B from patientswith signs and symptoms of respiratory infection.Negative results do not preclude influenza virus infectionand should not be used as the sole basis for diagnosis,treatment or other patient management decisions.There is a risk of false negative results due to thepresence of variants in the viral targets of the assay, lowlevels of virus in the specimen and co- infection withRespiratory Syncytial Virus. 01/16/2025 7:23 PM EDT 01/16/2025 7:28 PM EDT us Generic External Data Provider LAB MICROBIOLOGY - GENERAL ORDERABLES Final Result Performing Organization Address [facility] Co de Phone Number [facility] [address] [place] [phone] * COVID-19 ID NOW (RYDER) (01/16/2025 7:23 PM EDT) IDNOW SERIAL# [id number] [facility] COVID-19 TEST Negative Negative [facility] COVID-19 NOTE See Note [facility] Comment: Results are for the identification of SARS-CoV2 RNA. TheSARS-CoV2 RNA is generally detectable in respiratory samplesduring the acute phase of infection. Positive results areindicative of the presence of SARS-CoV-2 RNA; clinicalcorrelation with patient history and other diagnosticinformation is necessary to determine patient infectionstatus. Positive results do not rule out bacterial infectionor co- infection with other viruses.Testing facilities within the [facility] and [facility] are required to report all positive results tothe appropriate public health authorities.Negative results should be treated as presumptive and, ifinconsistent with clinical signs and symptoms or necessaryfor patient management, should be tested with differentauthorized or cleared molecular tests. Negative results donot preclude SARS-CoV2 RNA infection and should not be usedas the sole basis for patient management decisions. Negativeresults should be considered in the context of a patient'srecent exposures, history and the presence of clinical signsand symptoms consistent with COVID-19.This test has been authorized by the FDA under an EmergencyUse Authorization (EUA) for use by authorized laboratories.Testing performed on the Ryder ID NOW utilizing NAAT. 01/16/2025 7:23 PM EDT 01/16/2025 7:28 PM EDT us Generic External Data Provider LAB MOLECULAR ANIKA GNOSTICS ORDERABLES Final Result Performing Organization Address City/[facility]/ZIP Co de Phone Number [facility] [address] [place] [phone] * (ABNORMAL) CBC auto differential (01/16/2025 7:23 PM EDT) White Blood Count 18.1(H) 4.8 - 10.8 X10*3/uL [facility] Red Blood Count 6.29(H) 4.20 - 5.50 X10*6/uL [facility] Hemoglobin 17.6(H) 12.0 - 16.0 g/dl [facility] Hematocrit 53.5(H) 37.0 - 47.0 % [facility] Mean Corpuscular Volume 85.1 80.0 - 98.0 fL [facility] Mean Corpuscular Hemoglobin 28.0 27.0 - 33.0 pg [facility] Mean Corpuscular HGB Conc 32.9 31.0 - 35.0 g/dl [facility] Red Cell Distribution Width 14.4 11.0 - 16.0 % [facility] Platelet Count 250 160 - 400 X10*3/uL [facility] Mean Platelet Volume 10.1 9.4 - 12.3 fL [facility] Neutrophils Percent Auto 76.5(H) 45 - 73 % [facility] Imm Gran Pct Auto 0.5(H) 0.0 - 0.4 % [facility] Lymphocytes Percent Auto 16.7(L) 20 - 40 % [facility] Monocytes Percent Auto 5.9 2 - 11 % [facility] Eosinophils Percent Auto 0.1 0 - 4 % [facility] Basophils Percent Auto 0.3 0 - 2 % [facility] NRBC Pct Auto 0.0 0.0 - 0.2 /100WBC [facility] Neutrophils Absolute Auto 13.9(H) 2.0 - 8.3 x10*3/uL [facility] Imm Gran Abs Auto 0.09(H) 0.00 - 0.03 X10*3/uL [facility] Lymphocytes Absolute Auto 3.0 1.2 - 4.9 X10*3/uL [facility] Monocytes Absolute Auto 1.1 0.1 - 1.2 X10*3/uL [facility] Eosinophils Absolute Auto 0.0 0.0 - 0.4 X10*3/uL [facility] Basophils Absolute Auto 0.1 0.0 - 0.2 X10*3/uL [facility] NRBC Abs Auto 0.000 0.0 - 0.012 X10*3/uL [facility] 01/16/2025 7:23 PM EDT 01/16/2025 7:28 PM EDT us Generic External Data Provider LAB BLOOD ORDERAB LES Final Result Performing Organization Address City/State/[facility] Co de Phone Number [facility] [address] [place] [phone] documented in this encounter Visit Diagnoses Not on filedocumented in this encounter Additional Health Concerns Assessment Noted Time PHQ-9 Depression Total Score: 5 11/03/19 25 9:53 AM EDT documented as of this encounter Care Teams Content Management Consultant Relationship Specialty Start Date End Date Name, MD Bobby [address] [place] [address] PCP - General Family Medicine 06/01/15 Eloina 05/13/24 documented as of this encounter
--- OUTSIDE RECORDS SUMMARY | 2025-01-16 21:12 | XMS_ITS | Encounter Summary ---
Author Organization [employer] Address [address] [place] [address] [address] [place] [address] Care Team Providers Care Community Education Coordinator Name Role Phone Name, Bobby GRADY Primary Care Provider [phone] Reason for Visit * Reason Onset Date Comments Hospital Follow-up 05/17/2024 Encounter Details Date Type Department Care Team ([facility] st Contact Info) Description 05/17/2024 Telephone [facility] MEDICINE [address] [place] [address] Name, MD Bobyb [address] [place] [address] Hospital Follow-up Social History Tobacco Use Types [...] from pt requesting a HDF appt. Hospital: [facility] transported Date of admission: 04/06/2024 Discharge date: 05/12/2024 Diagnosed: RSV , Influenza A+B , COPD *Send message to Mary D Clinical Care Coordinators documented in this encounter Plan of Treatment Upcoming Encounters Date Type Department Care Team (Late st Contact Info) Description 01/25/2025 9:30 AM EDT Office Visit [facility] MEDICINE [address] [place] [phone] Name, MD Bobby [address] [place] [address] 02/10/2025 9:30 AM EST Telemedicine [facility] [address] [place] [address] Skye Melton, RN 03/14/2025 10:00 AM EST Office Visit [facility] OPTOMETRY [address] [place] [phone] Abbey Deng, OD [address] [place] [address] documented as of this encounter Goals Goal Patient Goal Type Associated Problems Recent Progress Patient-Stated? Author Smoking cessation General Inga Radford, PharmD documented as of this encounter Visit Diagnoses Not on filedocumented in this encounter Additional Health Concerns Assessment Noted Time PHQ-9 Depression Total Score: 0 06/19/19 24 10:09 AM EDT documented as of this encounter Care Teams Community Education Coordinator Relationship Specialty Start Date End Date Name, MD Bobby [address] [place] [address] PCP - General Family Medicine 06/01/15 Eloina 05/13/24 documented as of this encounter
--- OUTSIDE RECORDS SUMMARY | 2025-01-16 21:12 | XMS_ITS | Encounter Summary ---
Author Organization [employer] Address [address] [facility] 7t [place] [address] Care Team Providers Care Frozen Foods Manager Name Role Phone Name, Bobby GRADY Primary Care Provider [phone] Encounter Details Date Type Department Care Team [...] Upcoming Encounters Date Type Department Care Team ([facility] st Contact Info) Description 01/25/2025 9:30 AM EDT Office Visit [facility] MEDICINE [address] [place] [address] Name, MD Bobby [address] [place] [address] 19[address] 02/10/2025 9:30 AM EST Telemedicine [facility] MEDICINE [address] [place] [address] Skye Melton, HODA 03/14/2025 10:00 AM EST Office Visit [facility] OPTOMETRY [address] [place] [address] Abbey Deng, OD [address] [place] [address] documented as of this encounter Goals Goal Patient Goal Type Associated Problems Recent Progress Patient-Stated? Author Smoking cessation General No Inga Magaña, MiltonD documented as of this encounter Procedures Procedure Name Priority Date/Time Associated Diagnosis Comments CTA CHEST PE PROTOCAL Routine 01/11/2025 10:18 AM EDT BLOOD CULTURE (SECOND) Routine 01/11/2025 9:54 AM EDT VENOUS BLOOD GAS Routine 01/11/2025 9:51 AM EDT BLOOD CULTURE (FIRST) Routine 01/11/2025 9:46 AM EDT LACTIC ACID Routine 01/11/2025 9:46 [...] AM EDT Narrative 01/11/2025 11:12 AM EDT [place] [address] [address] Scan Report Signed Patient: Marita Zapata MR#: [id number] : 1960 Acct:[id number] Age/Sex: 64 / F ADM Date: 01/11/25 Loc: .ED Attending Dr: Ordering Physician: Rebecca Terry DO Date of Service: 01/11/25 Procedure(s): CT angio chest PE protocol Accession Number(s): [id number] cc: Rebecca Terry DO; Name,Bobby GRADY Report Number: [id number]: Total DLP = 316.00 mGy-cm Reason for [...] 01/11/25 1109 DD/ 1018 TD/TT: 01/11/25 1050 Lpn Care Manager: ISH Procedure Note Donotuseinterpreter, Image - 01/11/[address] [place] [address] [address] Scan Report Signed Patient: Marita Zapata [facility]#: [id number] : 1960Acct:[id number] Age/Sex: 64 / FADM Date: 01/11/25 Loc: .ED Attending Dr: Ordering Physician: Rebecca Terry DO Date of Service: 01/11/25 Procedure(s): CT angio chest PE protocol Accession Number(s): [id number] cc: Rebecca Terry DO; Name,Bobby GRADY Report Number: [id number]: Total DLP = 316.00 mGy-cm Reason for [...] 01/11/25 1109 DD/ 1018 TD/TT: 01/11/25 1050 Lpn Care Manager: ISH us [facility] External Provider IMG CT PROCEDURES Final Result * Blood Culture (Second) (01/11/2025 9:54 AM EDT) Blood Venous blood specimen / Unknown 01/11/2025 9:54 AM EDT 01/11/2025 10:01 AM EDT Comment:Blood Narrative [facility] - 01/16/2025 12:01 PM EDT Blood Culture (Second) No growth after 5 days. Specimen Source: Blood Generic External Data Provider LAB MICROBIOLOGY - GENERAL ORDERABLES Final Result Performing Organization Address City/State/[facility] Co de Phone Number [facility] [address] [place] [address] [phone] * VENOUS BLOOD GAS (01/11/2025 9:51 AM EDT) VBG pH 7.41 7.32 - 7.43 [facility] Comment:METER #: [id number] additional_comment: Cb bdaweh VBG PCO2 40 mmHg [facility] Comment:METER #: [id number] additional_comment: Cb bdaweh VBG PO2 48 mmHg [facility] Comment:METER #: [id number] additional_comment: Cb bdaweh VBG Base Excess 1.6 mmol/L [facility] Comment:METER #: [id number] additional_comment: Cb bdaweh VBG HCO3 26 22 - 26 mmol/L [facility] Comment:METER #: [id number] additional_comment: Cb bdaweh O2 Sat, Maynor 74.0 % [facility] Comment:METER #: [id number] additional_comment: Cb bdaweh 01/11/2025 9:51 AM EDT 01/11/2025 9:56 AM EDT Generic External Data Provider LAB BLOOD ORDERAB LES Final Result Performing Organization Address [facility] Co de Phone Number [facility] [address] [place] [address] [phone] * Blood Culture (First) (01/11/2025 9:46 AM EDT) Blood Venous blood specimen / Unknown 01/11/2025 9:46 AM EDT 01/11/2025 9:50 AM EDT Comment:Blood Narrative [facility] - 01/16/2025 11:50 AM EDT Blood Culture (First) No growth after 5 days. Specimen Source: Blood Generic External Data Provider LAB MICROBIOLOGY - GENERAL ORDERABLES Final Result Performing Organization Address [facility] Co pa Phone Number [facility] [address] [place] [address] [phone] * Lactic Acid (01/11/2025 9:46 AM EDT) Lactic Acid 1.5 0.5 - 2.0 mmol/L [facility] 01/11/2025 9:46 AM EDT 01/11/2025 9:49 AM EDT Generic External Data Provider LAB BLOOD ORDERAB LES Final Result Performing Organization Address [facility] Co de Phone Number [facility] [address] [place] [address] [phone] * SARS-CoV-2 RNA, Influenza A/B, and RSV RNA, Ql NAAT (01/11/2025 9:02 AM EDT) Influenza A PCR NEGATIVE Negative [facility] Influenza B PCR NEGATIVE Negative [facility] Resp Syncy Virus RNA Qual PCR NEGATIVE Negative [facility] SARS COV2 PCR NEGATIVE Negative [facility] Comment:All test results mus t [...] use by authorized laboratories.Testing performed on the [employer] GeneXpert utilizingreal-time RT-PCR.All SARS CoV2 and positive influenza A/B results arereported to [facility]. 01/11/2025 9:02 AM EDT 01/11/2025 9:04 AM EDT Generic External Data Provider LAB MICROBIOLOGY - GENERAL ORDERABLES Final Result Performing Organization Address [facility] Co de Phone Number [facility] [address] [place] [address] [phone] * High Sensitivity Troponin I (01/11/2025 9:02 AM EDT) [facility] TROPONIN I HIGH SENSITIVITY 4.2 <3.5 - 17.0 ng/L [facility] Comment:The Grossman high sens itivity Troponin-I results should beused in conjunction with other diagnostic information suchas ECG, clinical observations and information, and patientsymptoms to aid in the diagnosis of VT. 01/11/2025 9:02 AM EDT 01/11/2025 9:04 AM EDT Generic External Data Provider LAB BLOOD ORDERAB LES Final Result Performing Organization Address [facility] Co de Phone Number [facility] [address] [place] [address] [phone] * (ABNORMAL) Basic Metabolic Panel (01/11/2025 9:02 AM EDT) [facility] Sodium 144 135 - 145 mmol/L [facility] Potassium 4.1 3.3 - 5.1 mmol/L [facility] Chloride 112(H) 96 - 108 mmol/L [facility] Carbon Dioxide 21(L) 22 - 29 mmol/L [facility] Anion Gap 15 12 - 20 [facility] Urea Nitrogen (BUN) 13 9 - 16 mg/dL [facility] Creatinine, Serum 0.67 0.5 - 1.4 mg/dL [facility] Creatinine Clr Calc Pharmacy 83.6 [facility] Comment:Provided height and weight: 165.1 cm,72.575 kg.eGFR (calculated from the MDRD study equation) and eCrCl(calculated from the Cockcroft-Gault equation) are based ondifferent parameters and may not yield comparable results.If eCrCl result is absurd, please check patient'sheight/weight. Estimated Glomerular Filt Rate >60 [facility] Comment:Chronic Kidney Disea se: Estimated GFR < 60 mL/min/1.13n1Utgekc Kidney Disease: Estimated GFR < 15 mL/min/1.73m2 Glucose 180(H) 60 - 115 mg/dL [facility] Calcium 9.2 8.4 - 10.2 mg/dL [facility] 01/11/2025 9:02 AM EDT 01/11/2025 9:04 AM EDT us Generic External Data Provider LAB BLOOD ORDERAB LES Final Result [facility] [address] [place] [address] [phone] * (ABNORMAL) CBC auto differential (01/11/2025 9:02 AM EDT) White Blood Count 12.9(H) 4.8 - 10.8 X10*3/uL [facility] Red Blood Count 6.04(H) 4.20 - 5.50 X10*6/uL [facility] Hemoglobin 17.1(H) 12.0 - 16.0 g/dl [facility] Hematocrit 53.0(H) 37.0 - 47.0 % [facility] Mean Corpuscular Volume 87.7 80.0 - 98.0 fL [facility] Mean Corpuscular Hemoglobin 28.3 27.0 - 33.0 pg [facility] Mean Corpuscular HGB Conc 32.3 31.0 - 35.0 g/dl [facility] Red Cell Distribution Width 14.6 11.0 - 16.0 % [facility] Platelet Count 216 160 - 400 X10*3/uL [facility] Mean Platelet Volume 10.0 9.4 - 12.3 fL [facility] Neutrophils Percent Auto 74.1(H) 45 - 73 % [facility] Imm Gran Pct Auto 0.7(H) 0.0 - 0.4 % [facility] Lymphocytes Percent Auto 18.1(L) 20 - 40 % [facility] Monocytes Percent Auto 6.0 2 - 11 % [facility] Eosinophils Percent Auto 0.5 0 - 4 % [facility] Basophils Percent Auto 0.6 0 - 2 % [facility] NRBC Pct Auto 0.0 0.0 - 0.2 /100WBC [facility] Neutrophils Absolute Auto 9.6(H) 2.0 - 8.3 x10*3/uL [facility] Imm Gran Abs Auto 0.09(H) 0.00 - 0.03 X10*3/uL [facility] Lymphocytes Absolute Auto 2.3 1.2 - 4.9 X10*3/uL [facility] Monocytes Absolute Auto 0.8 0.1 - 1.2 X10*3/uL [facility] Eosinophils Absolute Auto 0.1 0.0 - 0.4 X10*3/uL [facility] Basophils Absolute Auto 0.1 0.0 - 0.2 X10*3/uL [facility] NRBC Abs Auto 0.000 0.0 - 0.012 X10*3/uL [facility] 01/11/2025 9:02 AM EDT 01/11/2025 9:04 AM EDT us Generic External Data Provider LAB BLOOD ORDERAB LES Final Result [facility] [address] [place] [address] [phone] * XR Chest 2 Views (01/11/2025 9:00 AM EDT) Anatomical Region Laterality Modality Chest Radiographic Ludivina ging 01/11/2025 9:00 AM EDT Narrative 01/11/2025 9:25 AM EDT [address] [address] XRay Report Signed Patient: Marita Zapata MR#: [id number] : 1960 Acct:[id number] Age/Sex: 64 / F ADM Date: 01/11/25 Loc: .ED Attending Dr: Ordering Physician: Generic ED Physician Date of Service: 01/11/25 Procedure(s): XR chest 2V Accession Number(s): [id number] cc: Generic ED Physician; Name,Bobby GRADY Reason [...] Andriy Lama MD 01/11/2025 09:23 AM EDT Dictated By: Andriy Lama MD Signed By: <Electronically signed by Andriy Lama MD in OV> 01/11/25922 DD/ 9 TD/TT: 01/11/25903 Lpn Care Manager: Procedure Note Donotuseinterpreter, Image - 01/11/[address] [address] XRay Report Signed Patient: Marita Zapata MMR#: [id number] : 1960Acct:[id number] Age/Sex: 64 / FADM Date: 01/11/25 Loc: HO.ED Attending Dr: Ordering Physician: Generic ED Physician Date of Service: 01/11/25 Procedure(s): XR chest 2V Accession Number(s): [id number] cc: Generic ED Physician; Name,Bobby GRADY Reason [...] Andriy Lama MD 01/11/2025 09:23 AM EDT Dictated By: Andriy Lama MD Signed By: <Electronically signed by Andriy Lama MD in OV> 01/11/25 0923 DD/ 0900 TD/TT: 01/11/25 0904 Lpn Care Manager: [facility] External Provider IMG XR PROCEDURES Final Result documented in this encounter Visit Diagnoses Not on filedocumented in this encounter Additional Health Concerns Assessment Noted Time PHQ-9 Depression Total Score: 5 11/03/19 9:53 AM EDT documented as of this encounter Care Teams Frozen Foods Manager Relationship Specialty Start Date End Date Name, MD Bobby [address] [place] [address] PCP - General Family Medicine 06/01/15 Eloina 05/13/24 documented as of this encounter
--- OUTSIDE RECORDS SUMMARY | 2025-01-16 21:13 | XMS_ITS | Encounter Summary ---
Author Organization [employer] Address [address] [place] [address] [address] [place] [address] Care Team Providers Care Floor And Wall Applier Liquid Name Role Phone Name, Bobby GRADY Primary Care Provider [phone] Inga Magaña PharmD Unavailable Encounter Details Date Type Department Care Team (Late st Contact Info) Description 03/05/2022 Telephone [facility] MEDICINE [address] [place] [address] Monisha Linton CNM [address] [place] [address] Social History Tobacco Use Types Packs/Day Years [...] Visit [facility] MEDICINE [address] [place] [address] 38787 Name, MD Bobby [address] [place] [address] 568[address] 02/10/2025 9:30 AM EST Telemedicine [facility] MEDICINE [address] [place] [address] [phone] Skye Melton, HODA 03/14/2025 10:00 AM EST Office Visit [facility] OPTOMETRY [address] [place], [place] [phone] Abbey Deng, OD [address] [place] [address] documented as of this encounter Visit Diagnoses Not on filedocumented in this encounter Care Teams Floor And Wall Applier Liquid Relationship Specialty Start Date End Date Name, MD Bobby [address] [place] [address] PCP - General Family Medicine 06/01/15 Inga Magaña PharmD [address] [place] [address] [phone] Pharmacist Internal Medicine 01/07/23 09/29/23 Eloina 05/13/24 documented as of this encounter
--- OUTSIDE RECORDS SUMMARY | 2025-01-16 21:13 | XMS_ITS | Encounter Summary ---
Author Organization [employer] Address [address] [place] [address] 7t [place] [address] Care Team Providers Care Web Content Writer Name Role Phone Name, Bobby GRADY Primary Care Provider [phone] Inga Magaña PharmD Unavailable Reason for Visit * Reason Comments Med Refill Encounter Details Date Type Department Care Team (Late st Contact Info) Description 11/18/2022 Refill [facility] [address] [place], [place] [phone] Name, MD Bobby [address] [place] [phone] Type 2 diabetes mellitus without complications (CMS/[facility]) Social History Tobacco Use Types Packs/Day Years [...] AM EDT Office Visit [facility] MEDICINE [address] [place] [phone] Name, MD Bobby [address] [place] [address] 02/10/2025 9:30 AM EST Telemedicine [facility]INE [address] [place] [address] Skye Melton, RN 03/14/2025 10:00 AM EST Office Visit [facility] OPTOMETRY [address] [place] [address] Abbey Deng, OD [address] [place] [address] documented as of this encounter Visit Diagnoses Diagnosis Type 2 diabetes mellitus without complications (HCC) documented in this encounter Additional Health Concerns Assessment Noted Time PHQ-9 Depression Total Score: 0 03/11/20 11:47 AM EST documented as of this encounter Care Teams Web Content Writer Relationship Specialty Start Date End Date Name, MD Bboby [address] [place] [address] PCP - General Family Medicine 06/01/15 Inga Magaña PharmD [address] [place] [address] Pharmacist Internal Medicine 01/07/23 09/29/23 Eloina 05/13/24 documented as of this encounter
--- OUTSIDE RECORDS SUMMARY | 2025-01-16 21:13 | XMS_ITS | Encounter Summary ---
Author Organization [employer] Address [address] [facility] 7t [place] [address] Care Team Providers Care Call Center Analyst Name Role Phone Name, Bobby GRADY Primary Care Provider [phone] Inga Magaña PharmD Unavailable [phone] Reason for Visit * Reason Onset Date Comments Med Refill 01/20/2023 Encounter Details Date Type Department Care Team ([facility] st Contact Info) Description 01/20/2023 Telephone [facility] MEDICINE [address] [place] [address] Name, MD Bobby [address] [place] [address] Med Refill Social History Tobacco Use Types [...] Office Visit [facility] MEDICINE [address] [place] [address] Name, MD Bobby [address] [place] [address] 02/10/2025 9:30 AM EST Telemedicine [facility] MEDICINE [address] [place] [address] [phone] Skye Melton, RN 03/14/2025 10:00 AM EST Office Visit [facility] OPTOMETRY [address] [place], [place] [phone] Abbey Deng OD [address] [place] [address] documented as of this encounter Goals Goal Patient Goal Type Associated Problems Recent Progress Patient-Stated? Author Smoking cessation General No Inga Magaña, Lucio documented as of this encounter Visit Diagnoses Not on filedocumented in this encounter Additional Health Concerns Assessment Noted Time PHQ-9 Depression Total Score: 0 03/11/20 22 11:47 AM EST documented as of this encounter Care Teams Call Center Analyst Relationship Specialty Start Date End Date Name, MD Bobby [address] [place] [address] PCP - General Family Medicine 06/01/15 Inga Magaña, MiltonD [address] [place] [address] Pharmacist Internal Medicine 01/07/23 09/29/23 Eloina 05/13/24 documented as of this encounter
--- OUTSIDE RECORDS SUMMARY | 2025-01-16 21:13 | XMS_ITS | Encounter Summary ---
Author Organization [employer] Address [address] [place] [address] [address] [address] Care Team Providers Care Enterprise Mobility Architect Name Role Phone Name, Bobby GRADY Primary Care Provider Inga Magaña PharmD Unavailable [phone] Encounter Details Date Type Department Care Team (Late Contact Info) Description 09/01/2022 Abstract [facility] MEDICINE [address] [place] [phone] NameBobby MD [address] [place] [phone] Social History Tobacco Use Types Packs/Day Years [...] 9:30 AM EDT Office Visit [facility] MEDICINE [address] [place] [address] [phone] Bobby David MD [address] [place] [phone] 02/10/2025 9:30 AM EST Telemedicine [facility] MEDICINE [address] [place] [address] Skye Melton, RN 03/14/2025 10:00 AM EST Office Visit [facility] OPTOMETRY [address] [place] [address] Patricksophy Abbey, OD [address] [place] [address] documented as of this encounter Visit Diagnoses Not on filedocumented in this encounter Additional Health Concerns Assessment Noted Time PHQ-9 Depression Total Score: 0 03/11/20 22 11:47 AM EST documented as of this encounter Care Teams Enterprise Mobility Architect Relationship Specialty Start Date End Date Name, MD Bobby [address] [place] [address] PCP - General Family Medicine 06/01/15 Inga Magaña, Lucio [address] [place] [address] Pharmacist Internal Medicine 01/07/23 09/29/23 Eloina 05/13/24 documented as of this encounter
--- OUTSIDE RECORDS SUMMARY | 2025-01-16 21:13 | XMS_ITS | Encounter Summary ---
Author Organization [employer] Address [address] [place] [address] 7 [place] [address] Care Team Providers Care Securities Dealer Name Role Phone Name, Bobby GRADY Primary Care Provider [phone] Inga Magaña PharmD Unavailable [phone] Reason for Visit * Reason Onset Date Comments Prior Authorization 01/21/2023 HumaLOG KWIK PEN 100 UNIT/ML injection Encounter Details Date Type Department Care Team ([facility] st Contact Info) Description 01/21/2023 Telephone [facility] MEDICINE [address] [place], [place] [phone] Name, MD Bobby [address] [place] [address] Prior Authorization (HumaLOG KWIKPEN 100 UNIT/ML injection) [...] Description 01/25/2025 9:30 AM EDT Office Visit [facility] MEDICINE [address] [place] [address] 268[address] Name, MD Bobby [address] [place] [address] 02/10/2025 9:30 AM EST Telemedicine [facility] [address] [place] [address] 58[address] Skye Melton RN 03/14/2025 10:00 AM EST Office Visit [facility] OPTOMETRY [address] [place] [address] Abbey Deng, OD [address] [place] [address] documented as of this encounter Goals Goal Patient Goal Type Associated Problems Recent Progress Patient-Stated? Author Smoking cessation General No Inga Magaña, PharmD documented as of this encounter Visit Diagnoses Not on filedocumented in this encounter Additional Health Concerns Assessment Noted Time PHQ-9 Depression Total Score: 0 03/11/20 22 11:47 AM EST documented as of this encounter Care Teams Securities Dealer Relationship Specialty Start Date End Date Name, MD Bobby [address] [place] [address] PCP - General Family Medicine 06/01/15 Inga Magaña, MiltonD [address] [place] [address] Pharmacist Internal Medicine 01/07/23 09/29/23 Eloina 05/13/24 documented as of this encounter
--- OUTSIDE RECORDS SUMMARY | 2025-01-16 21:13 | XMS_ITS | Encounter Summary ---
Author Organization [employer] Address [address] [place] [address] [address] [place] [address] Care Team Providers Care Instructional Technologist Name Role Phone Name, Bobby GRADY Primary Care Provider Inga Magaña PharmD Unavailable [phone] Reason for Visit * Reason Comments Med Refill Encounter Details Date Type Department Care Team ([facility] Contact Info) Description 11/18/2022 Refill [facility] [address] [place], [place] [phone] Sherly Pichardo, GEETA [address] [place], [place] [phone] Type 2 diabetes mellitus without complications (CMS/[facility]) Social History Tobacco Use Types Packs/Day [...] ([facility] Contact Info) Description 01/25/2025 9:30 AM EDT Office Visit [facility] MED[facility]INE [address] [place] [address] Name, MD Bobby [address] [place] [address] 02/10/2025 9:30 AM EST Telemedicine [facility] [address] [place] [address] Skye Melton, RN 03/14/2025 10:00 AM EST Office Visit [facility] OPTOMETRY [address] [place] [address] Abbey Deng, OD [address] [place] [address] documented as of this encounter Visit Diagnoses Diagnosis Type 2 diabetes mellitus without complications (HCC) documented in this encounter Additional Health Concerns Assessment Noted Time PHQ-9 Depression Total Score: 0 03/11/20 11:47 AM EST documented as of this encounter Care Teams Instructional Technologist Relationship Specialty Start Date End Date Name, MD Bobby [address] [place] [address] PCP - General Family Medicine 06/01/15 Inga Magaña PharmD [address] [place] [address] Pharmacist Internal Medicine 01/07/23 09/29/23 Eloina 05/13/24 documented as of this encounter
--- OUTSIDE RECORDS SUMMARY | 2025-01-16 21:13 | XMS_ITS | Clinical Summary ---
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 60 capsule 025 2025 Active ipratropium-albu terol (Duo-Neb) 0.5-2.5 mg/3 mL nebulizer solutionIndicati ons:Chronic obstructive pulmonary disease, unspecified ([facility]) INHALE 1 AMPULE USING A NEBULIZER FOUR TIMES DAILY 360 mL 3 025 Active Trulicity 1.5 MG/0.5ML solution auto-injectorInd ications:Type 2 diabetes with complication ([facility]),COPD exacerbation (CMS/HCC) ([facility]) INJECT ONE PEN (=1.5MG) SUBCUTANEOUSLY [...] neoplasm o f colon 09/30/2023 CAD in coquille artery 09/02/2023 Opioid dependence, daily use (CMS/HCC) [...] Date Diagnosed Date Resolved Date COPD exacerbation ([facility]) 04/04/2024 06/27/2024 Assessment & Plan (04/04/2024 12:56 PM EST): Pt endorses increased sputum production, increased sob, Neg covid tests at home Chest x-ray neg- in care with pulmonary, Extensive conversation about smoking cessation Will treat with prednisone burst/taper and doxycylcine Hypothyroidism, acquired 02/02/2023 Subclinical hyperthyroidism 01/26/2020 06/19/2023 Encounters Date Type Department Care Team Description 01/16/2025 Orders Only GENERIC EXTERNAL DATA DEPARTMENT Provider, Generic External Data 01/11/2025 Orders Only GENERIC EXTERNAL DATA DEPARTMENT Provider, Generic External Data 01/10/2025 Refill [facility] [address] [place] [address] Name, MD Bobby Lumbar radiculopathy 12/19/2024 Refill [facility] [address] [place] [address] Bobby David MD Chronic low back pain with sciatica, sciatica laterality unspecified, unspecified back pain laterality 12/14/2024 Telephone [facility] [address] [place] [address] Bobby David MD Durable Medical Equipment 12/08/2024 Refill [facility] [address] [place] [address] Bobby David MD Lumbar radiculopathy 12/04/2024 Orders Only GENERIC EXTERNAL DATA DEPARTMENT Provider, Generic External Data 11/25/2024 10:00 AM EDT Telemedicine [facility] [address] [place] [phone] Skye Melton RN Long-term current use of opiate analgesic 11/25/2024 Telephone [facility] [address] [place] [phone] Skye Melton RN BPI scoring 11/25/2024 Travel 11/18/2024 Orders Only [facility] External Provider, [facility] 11/18/2024 Refill [facility] [address] [place] [address] Bobby David MD Chronic low back pain with sciatica, sciatica laterality unspecified, unspecified back pain laterality 11/14/2024 Telephone [facility] [address] [place] [phone] Bobby David MD Durable Medical Equipment (A/C) 11/14/2024 Refill [facility] [address] [place] [phone] Bobby David MD 11/07/2024 Refill [facility] [address] [place] [phone] Bobby David MD Type 2 diabetes with complication ([facility]); COPD exacerbation ([facility]) 11/04/2024 Telephone [facility] [address] [place] [phone] Bobby David MD 11/04/2024 Refill [facility] [address] [place] [phone] Bobby David MD Chronic obstructive pulmonary disease, unspecified ([facility]/HCC) 11/02/2024 9:30 AM EDT Office Visit [facility] [address] [place] [address] Name, MD Bobby Type 2 diabetes mellitus with other specified complication, unspecified whether snf insulin use (CMS/HCC) (Primary Dx); Hypertension, unspecified type; Chronic obstructive pulmonary disease, unspecified COPD type (CMS/HCC); Atelectasis; Chronic pain syndrome; Acquired hypothyroidism; Encounter for screening mammogram for malignant neoplasm of breast 11/02/2024 Telephone [facility] [address] [place] [address] NameBobby MD FYI 11/02/2024 Travel 11/01/2024 Refill [facility] [address], [place] [phone] Bobby David MD Lumbar radiculopathy 10/21/2024 Refill [facility] [address], [place] [phone] Name, MD Bobby Chronic low back pain [...] Description 01/25/2025 9:30 AM EDT Office Visit [facility] [address] [place] [phone] Name, MD Bobby [address] [place] [address] 02/10/2025 9:30 AM EST Telemedicine [facility] [address] [place] [address] Skye Melton, HODA 03/14/2025 10:00 AM EST Office Visit [facility] [address] [place] [address] Abbey Deng, KIKA [address] [place] [address] Health Maintenance Due Date Last Done Comments [...] 2 VIEWS Routine 01/16/2025 8:03 PM EDT LIPASE Routine 01/16/2025 7:23 PM EDT COMPREHENSIVE METABOLIC PANEL Routine 01/16/2025 7:23 PM EDT LACTIC ACID Routine 01/16/2025 7:23 PM EDT COVID-19 ID NOW (RYDER) Routine 01/16/2025 7:23 PM EDT CBC WITH AUTO DIFFERENTIAL Routine 01/16/2025 7:23 PM EDT INFLUENZA A B2 ID NOW (RYDER) Routine 01/16/2025 7:23 PM EDT CTA CHEST PE PROTOCAL Routine 01/11/2025 10:18 AM EDT BLOOD CULTURE (SECOND) Routine 01/11/2025 9:54 AM EDT VENOUS BLOOD GAS Routine 01/11/2025 9:51 AM EDT LACTIC ACID Routine 01/11/2025 9:46 AM EDT BLOOD CULTURE (FIRST) Routine 01/11/2025 9:46 AM EDT HIGH SENSITIVITY [...] complication (CMS/HCC) Atherosclerosis of coronary artery of coquille heart, unspecified vessel or lesion type, unspecified whether angina present Pain of toe of left foot LIPID PANEL, STANDARD Routine 12/29/2023 11:17 AM EDT Type 2 diabetes with complication (CMS/HCC) Atherosclerosis of coronary artery of coquille heart, unspecified vessel or lesion type, unspecified whether angina present Pain of toe of left foot HM COLONOSCOPY Routine 07/16/2022 HM PAP/HPV Routine 02/27/2021 10:30 AM EST THINPREP IMAGING PAP AND HPV MRNA E6/E7 WITH REFLEX TO HPV 16,18/45 Routine 02/27/2021 10:24 AM EST from Last 3 Months or Most Recently Relevant to Health Maintenance Results * XR Chest 2 Views (01/16/2025 8:03 PM EDT) Only the most recent of2 resultswithin the time period is included. Anatomical Region Laterality Modality Chest Radiographic Ludivina ging 01/16/2025 8:03 PM EDT Narrative 01/16/2025 8:04 PM EDT [address] [address] XRay Report Signed Patient: Marita Zapata MR#: [id number] : 1960 Acct:[id number] Age/Sex: 64 / F ADM Date: 01/16/25 Loc: HO.ED Attending Dr: Ordering Physician: Ruddy Shabazz Date of Service: 01/16/25 Procedure(s): XR chest 2V Accession Number(s): [id number] cc: Name,Bobby GRADY; Ruddy Shabazz Reason for [...] MD in OV> 01/16/252003 DD/ 02 TD/TT: 01/16/25 2003 Financial Secretary: Procedure Note Donotuseinterpreter, Image - 01/16/[address] [address] XRay Report Signed Patient: Marita Zapata MMR#: [id number] : 1960Acct:[id number] Age/Sex: 64 / FADM Date: 01/16/25 Loc: HO.ED Attending Dr: Ordering Physician: Ruddy Shabazz Date of Service: 01/16/25 Procedure(s): XR chest 2V Accession Number(s): [id number] cc: Name,Bobby GRADY; Ruddy Shabazz Reason for [...] in OV> 01/16/252003 DD/ 02 TD/TT: 01/16/252002 Financial Secretary: [facility] External Provider IMG XR PROCEDURES Edited Result - Final * Influenza A B2 ID NOW (Ryder) (01/16/2025 7:23 PM EDT) IDNOW SERIAL# [id number] [facility] Influenza A Negative Negative [facility] [...] PM EDT Generic External Data Provider LAB MICROBIOLOGY - GENERAL ORDERABLES Final Result Performing Organization Address City/[facility]/ZIP Co de Phone Number [facility] [address] [place] [phone] [phone] * COVID-19 ID NOW (RYDER) (01/16/2025 7:23 PM EDT) IDNOW SERIAL# [id number] [facility] COVID-19 TEST Negative Negative [facility] COVID-19 NOTE See Note [facility] Comment: Results are for the identification of SARS-CoV2 RNA. TheSARS-CoV2 RNA is generally detectable in respiratory samplesduring the acute phase of infection. Positive results areindicative of the presence of SARS-CoV-2 RNA; clinicalcorrelation with patient history and other diagnosticinformation is necessary to determine patient infectionstatus. Positive results do not rule out bacterial infectionor co- infection with other viruses.Testing facilities within the [facility] and itsterritories are required to report all positive results [...] GNOSTICS ORDERABLES Final Result Performing Organization Address [facility]/ZIP Co de Phone Number [facility] [address] [place] [address] [phone] * (ABNORMAL) CBC auto differential (01/16/2025 7:23 PM EDT) Only the most recent of3 resultswithin the time period is included. White Blood Count 18.1(H) 4.8 - 10.8 [...] ORDERAB LES Final Result Performing Organization Address City/[facility]/ZIP Co de Phone Number [facility] [address] [place] [phone] * Lipase (01/16/2025 7:23 PM EDT) Lipase 19 8 - 78 U/L [facility] 01/16/2025 7:23 PM EDT 01/16/2025 7:28 PM EDT Generic External Data Provider LAB BLOOD ORDERAB LES Final Result Performing Organization Address [facility] de Phone Number [facility] [address] [place] [phone] * Lactic Acid (01/16/2025 7:23 PM EDT) Only the most recent of2 resultswithin the time period is included. Lactic Acid 2.0 0.5 - 2.0 mmol/L [facility] 01/16/2025 7:23 PM EDT 01/16/2025 7:28 PM EDT Generic External Data Provider LAB BLOOD ORDERAB LES Final Result Performing Organization Address [facility] Co de Phone Number [facility] [address] [place] [phone] * (ABNORMAL) Comprehensive Metabolic Panel (01/16/2025 7:23 PM EDT) Only the most recent of2 resultswithin the time period is included. Sodium 139 135 - 145 mmol/L [facility] [...] Kidney Disea se: Estimated GFR < 60 mL/min/1.06j1Rjlsvy Kidney Disease: Estimated GFR < 15 mL/min/1.73m2 [...] ORDERAB LES Final Result Performing Organization Address City/State/[facility] Co de Phone Number [facility] [address] [place] [phone] * CTA Chest PE Protocal (01/11/2025 10:18 AM EDT) Anatomical Region Laterality Modality Body, Chest Computed Tomogra phy 01/11/2025 10:1 8 AM EDT Narrative 01/11/2025 11:12 AM EDT [address] [address] [address] Scan Report Signed Patient: Marita Zapata MR#: [id number] : 1960 Acct:[id number] Age/Sex: 64 / F ADM Date: 01/11/25 Loc: .ED Attending Dr: Ordering Physician: Rebecca Terry DO Date of Service: 01/11/25 Procedure(s): CT angio chest PE protocol Accession Number(s): [id number] cc: Rebecca Terry DO; Name,Bobby GRADY Report Number: [id number]: Total DLP = 316.00 mGy-cm Reason for [...] 01/11/25 1109 DD/ 1018 TD/TT: 01/11/25 1050 Financial Secretary: ISH Procedure Note Donotuseinterpreter, Image - 01/11/[address] [address] [address] Scan Report Signed Patient: Marita Zapata MMR#: [id number] : 1960Acct:[id number] Age/Sex: 64 / FADM Date: 01/11/25 Loc: HO.ED Attending Dr: Ordering Physician: Rebecca Terry DO Date of Service: 01/11/25 Procedure(s): CT angio chest PE protocol Accession Number(s): [id number] cc: Rebecca Terry DO; Name,Bobby GRADY Report Number: [id number]: Total DLP = 316.00 mGy-cm Reason for [...] 01/11/25 1109 DD/ 1018 TD/TT: 01/11/25 1050 Financial Secretary: ISH [facility] External Provider IMG CT PROCEDURES Final Result * Blood Culture (Second) (01/11/2025 9:54 AM EDT) Blood Venous blood specimen / Unknown 01/11/2025 9:54 AM EDT 01/11/2025 10:01 AM EDT Comment:Blood Narrative [facility] - 01/16/2025 12:01 PM EDT Blood Culture (Second) No growth after 5 days. Specimen Source: Blood Generic External Data Provider LAB MICROBIOLOGY - GENERAL ORDERABLES Final Result Performing Organization Address [facility] de Phone Number [facility] [address] [place] [phone] * VENOUS BLOOD GAS (01/11/2025 9:51 AM EDT) VBG pH 7.41 7.32 - 7.43 [facility] Comment:METER #: [id number] additional_comment: Cb bdaweh VBG PCO2 40 mmHg [facility] Comment:METER #: [id number] additional_comment: Cb bdaweh VBG PO2 48 mmHg [facility] Comment:METER #: [id number] additional_comment: Cb bdaweh VBG Base Excess 1.6 mmol/L [facility] Comment:METER #: [id number] additional_comment: Cb bdaweh VBG HCO3 26 22 - 26 mmol/L [facility] Comment:METER #: [id number] additional_comment: Cb bdaweh O2 Sat, Maynor 74.0 % [facility] Comment:METER #: [id number] additional_comment: Cb bdaweh 01/11/2025 9:51 AM EDT 01/11/2025 9:56 AM EDT Generic External Data Provider LAB BLOOD ORDERAB LES Final Result Performing Organization Address [facility] Co de Phone Number [facility] [address] [place] [phone] * Blood Culture (First) (01/11/2025 9:46 AM EDT) Blood Venous blood specimen / Unknown 01/11/2025 9:46 AM EDT 01/11/2025 9:50 AM EDT Comment:Blood Narrative [facility] - 01/16/2025 11:50 AM EDT Blood Culture (First) No growth after 5 days. Specimen Source: Blood Generic External Data Provider LAB MICROBIOLOGY - GENERAL ORDERABLES Final Result Performing Organization Address [facility] Co de Phone Number [facility] [address] [place] [phone] * High Sensitivity Troponin I (01/11/2025 9:02 AM EDT) Only the most recent of2 resultswithin the time period is included. Pathologist [facility] TROPONIN I HIGH SENSITIVITY 4.2 <3.5 - 17.0 ng/L [facility] Comment:The Ryder high sens itivity Troponin-I results should beused in conjunction with other diagnostic information suchas ECG, clinical observations and information, and patientsymptoms to aid in the diagnosis of [place]. 01/11/2025 9:02 AM EDT 01/11/2025 9:04 AM EDT [employer] External Data Provider LAB BLOOD ORDERAB LES Final Result Performing Organization Address [facility] Co de Phone Number [facility] [address] [place] [phone] * SARS-CoV-2 RNA, Influenza A/B, and RSV RNA, Ql NAAT (01/11/2025 9:02 AM EDT) Only the most recent of2 resultswithin the time period is included. Pathologist [facility] Influenza A PCR NEGATIVE Negative [facility] Influenza B PCR NEGATIVE Negative [facility] Resp Syncy Virus RNA Qual PCR NEGATIVE Negative [facility] SARS COV2 PCR NEGATIVE Negative [facility] Comment:All test results mus t [...] use by authorized laboratories.Testing performed on the [employer] GeneXpert utilizingreal-time RT-PCR.All SARS CoV2 and positive influenza A/B results arereported to [facility]. 01/11/2025 9:02 AM EDT 01/11/2025 9:04 AM EDT us Generic External Data Provider LAB MICROBIOLOGY - GENERAL ORDERABLES Final Result [facility] [address] [place] [address] [phone] * (ABNORMAL) Basic Metabolic Panel (01/11/2025 9:02 AM EDT) Sodium 144 135 - 145 mmol/L [facility] Potassium 4.1 3.3 - 5.1 mmol/L [facility] Chloride 112(H) 96 - 108 mmol/L [facility] Carbon Dioxide 21(L) 22 - 29 mmol/L [facility] Anion Gap 15 12 - 20 [facility] Urea Nitrogen (BUN) 13 9 - 16 mg/dL [facility] Creatinine, Serum 0.67 0.5 - 1.4 mg/dL [facility] Creatinine Clr Calc Pharmacy 83.6 [facility] Comment:Provided height and weight: 165.1 cm,72.575 kg.eGFR (calculated from the MDRD study equation) and eCrCl(calculated from the Cockcroft-Gault equation) are based ondifferent parameters and may not yield comparable results.If eCrCl result is absurd, please check patient'sheight/weight. Estimated Glomerular Filt Rate >60 [facility] Comment:Chronic Kidney Disea se: Estimated GFR < 60 mL/min/1.08k6Ijocsp Kidney Disease: Estimated GFR < 15 mL/min/1.73m2 Glucose 180(H) 60 - 115 mg/dL [facility] Calcium 9.2 8.4 - 10.2 mg/dL [facility] 01/11/2025 9:02 AM EDT 01/11/2025 9:04 AM EDT us Generic External Data Provider LAB BLOOD ORDERAB LES Final Result [facility] [address] [facility] [place] [phone] * BD DEXA Axial (12/23/2024 12:50 PM EDT) Anatomical Region Laterality Modality Body Radiographic Ludivina ging 12/23/2024 12:5 0 PM EDT Narrative 12/23/2024 1:23 PM EDT [facility] [address] [place] [address] Mammography Report Signed Patient: Marita Zapata MR#: [id number] : 1960 Acct:[id number] Age/Sex: 63 / F ADM Date: 12/23/24 Loc: [place] Attending Dr: Bobby David MD Ordering Physician: Bobby David MD Results: Date of Service: 12/23/24 Follow Up: Procedure(s): XR DEXA axial skeleton Accession Number(s): [id number] cc: Bobby David MD Reason For Exam: osteopenia, chronic prednisone use EXAMINATION: DXA BONE DENSITY AXIAL HISTORY: osteopenia, chronic prednisone use TECHNIQUE: [employer] Dual energy absorptiometry (DEXA) of the lumbar [...] of the [employer] [place] for Metabolic Bone Disease, a World Health Organization (WHO) Collaborating Center. Electronically signed by: Brooks Daly MD 12/23/2024 01:20 PM EDT RP Dictated By: Brooks Daly MD Signed By: <Electronically signed by Brooks Daly MD in OV> 12/23/24 1320 DD/ 1250 TD/TT: 12/23/24 1315 Financial Secretary: Procedure Note Donotuseinterpreter, Image - 12/23/2024 [facility] [address] [place] [address] Mammography Report Signed Patient: Marita Zapata [facility]#: MM [id number] : 1960Acct:[id number] Age/Sex: 63 / FADM Date: 12/23/24 Loc: US[place] Attending Dr: Bobby David MD Ordering Physician: Bobby Davidesults: Date of Service: 12/23/24Follow Up: Procedure(s): XR DEXA axial skeleton Accession Number(s): [id number] cc: Name,Bobby GRADY Reason For Exam: osteopenia, chronic prednisone use EXAMINATION: DXA BONE DENSITY AXIAL HISTORY: osteopenia, chronic prednisone use TECHNIQUE: [employer] Dual energy absorptiometry (DEXA) of the lumbar [...] of the [employer] [place] for Metabolic Bone Disease, a World Health Organization (WHO) Collaborating Center. Electronically signed by: Brooks Daly MD 12/23/2024 01:20 PM EDT Dictated By: Brooks Daly MD Signed By: <Electronically signed by Brooks Daly MD in OV> 12/23/24 1320 DD/ 1250 TD/TT: 12/23/24 1315 Financial Secretary: Bobby David MD IMG DXA PROCEDURES Final Result * BI Mammogram Screening Tomosynthesis Bilateral (12/23/2024 12:35 PM EDT) Anatomical Region Laterality Modality Breast Bilateral Mammography 12/23/2024 12:3 5 PM EDT Narrative 12/27/2024 9:53 AM EDT [facility] [place] [address] Mammography Report Signed Patient: Marita Zapata MR#: [id number] : 1960 Acct:[id number] Age/Sex: 63 / F ADM Date: 12/23/24 Loc: HO.MAMMO Attending Dr: Bobby David MD Ordering Physician: Bobby David MD Results: 2Benign Date of Service: 12/23/24 Follow Up: 1 Year From Orig inal Mammogram Procedure(s): MM tomosynthesis screening BI Accession Number(s): [id number] cc: Bobby David MD Reason For Exam: [...] Leonor Whitlock DO 12/27/2024 09:50 AM EDT RP Dictated By: Leonor Whitlock DO Signed By: <Electronically signed by Leonor Whitlock DO in OV> 12/27/24 0950 DD/ 1235 TD/TT: 12/23/24 1250 Financial Secretary: Procedure Note Donotuseinterpreter, Image - 12/27/2024 [place] [facility] [address] [place] [address] Mammography Report Signed Patient: Marita Zapata MMR#: [id number] : 1960Acct:[id number] Age/Sex: 63 / FADM Date: 12/23/24 Loc: HO.MAMMO Attending Dr: Bobby David MD Ordering Physician: Bobby David MDResults: 2Benign Date of Service: 12/23/24Follow Up: 1 Year From Orig inal Mammogram Procedure(s): MM tomosynthesis screening BI Accession Number(s): [id number] cc: Bobby David MD Reason For Exam: [...] Leonor Whitlock DO 12/27/2024 09:50 AM EDT RP Dictated By: Leonor Whitlock DO Signed By: <Electronically signed by Leonor Whitlock DO in OV> 12/27/24 0950 DD/ 1235 TD/TT: 12/23/24 1250 Financial Secretary: Bobby MUELLER BI PROCEDURES Edited Result - Final * XR Chest 1 View (12/04/2024 1:22 PM EDT) Anatomical Region Laterality Modality Chest Radiographic Ludivina ging 12/04/2024 1:22 PM EDT Narrative 12/04/2024 1:24 PM EDT [place] [address] XRay Report Signed Patient: Marita Zapata MR#: [id number] : 1960 Acct:[id number] Age/Sex: 63 / F ADM Date: 12/04/24 Loc: .ED Attending Dr: Ordering Physician: Drew Herrera Date of Service: 12/04/24 Procedure(s): XR chest 1V Accession Number(s): [id number] cc: Drew Herrera; Name,Bobby GRADY Reason for [...] 12/04/24 1323 DD/ 1322 TD/TT: 12/04/24 1322 Financial Secretary: Procedure Note Donotuseinterpreter, Image - 12/04/[address] [address] XRay Report Signed Patient: Marita Zapata MMR#: [id number] : 1960Acct:[id number] Age/Sex: 63 / FADM Date: 12/04/24 Loc: HO.ED Attending Dr: Ordering Physician: Drew Herrera Date of Service: 12/04/24 Procedure(s): XR chest 1V Accession Number(s): [id number] cc: Drew Herrera; Name,Bobby GRADY Reason for [...] 12/04/24 1323 DD/ 1322 TD/TT: 12/04/24 1322 Financial Secretary: [facility] External Provider IMG XR PROCEDURES Edited Result - Final * B Type Natriuretic Peptide (BNP) (12/04/2024 11:49 AM EDT) B Type Natriuretic Peptide 51 <100 pg/mL [facility] 12/04/2024 11:4 9 AM EDT 12/04/2024 11:51 AM EDT Generic External Data Provider LAB BLOOD ORDERAB LES Final Result [facility] [address] [place] [phone] * Partial Thromboplastin Time, Activated (APTT) (12/04/2024 11:35 AM EDT) Partial Thromboplastin Time 27.7 26.7 - 34.1 SEC [facility] 12/04/2024 11:3 5 AM EDT 12/04/2024 11:51 AM EDT Generic External Data Provider LAB BLOOD ORDERAB LES Final Result Performing Organization Address [facility] Phone Number [facility] [address] [place] [phone] * (ABNORMAL) Prothrombin Time-INR (12/04/2024 11:35 AM EDT) [facility] Prothrombin Time 9.7(L) 10.9 - 12.4 SEC [facility] INTERNATIONAL NORM RATIO 0.8(L) 0.9 - 1.1 [facility] Comment:INTERNATIONAL NORMAL IZED RATIO (INR) REFERENCE [...] ORDERAB LES Final Result Performing Organization Address [facility] [facility] de Phone Number [facility] [address] [place] [phone] * Magnesium (12/04/2024 11:35 AM EDT) Pathologist [facility] Magnesium 2.0 1.6 - 2.6 mg/dL [facility] 12/04/2024 11:3 5 AM EDT 12/04/2024 11:51 AM EDT us Generic External Data Provider LAB BLOOD ORDERAB LES Final Result Performing Organization Address City/State/[facility] Co de Phone Number [facility] [address] [place] [phone] * CT Chest w/o Contrast (11/19/2024 7:06 PM EDT) Anatomical Region Laterality Modality Body, Chest Computed Tomogra phy 11/19/2024 7:06 PM EDT Narrative 11/19/2024 7:07 PM EDT [address] [address] [address] Scan Report Signed Patient: Marita Zapata MR#: [id number] : 1960 Acct:[id number] Age/Sex: 63 / F ADM Date: 11/18/24 Loc: HO.CT Attending Dr: Fidel White MD Ordering Physician: Fidel White MD Date of Service: 11/18/24 Procedure(s): CT chest wo IV con Accession Number(s): [id number] cc: NameBobby MD; Fidel White MD Report Number: [id number]: Total DLP = 160.00 mGy-cm CLINICAL HISTORY: [...] in OV> 11/19/241906 DD/ 05 TD/TT: 11/19/241905 Financial Secretary: Procedure Note Donotuseinterpreter, Image - 11/19/[address] [place] [address] [address] Scan Report Signed Patient: Marita Zapata [facility]#: [id number] : 1960Acct:[id number] Age/Sex: 63 / FADM Date: 11/18/24 Loc: .CT Attending Dr: Fidel White MD Ordering Physician: Fidel Wihte MD Date of Service: 11/18/24 Procedure(s): CT chest wo IV con Accession Number(s): [id number] cc: Bobby David MD; Fidel White MD Report Number: [id number]: Total DLP = 160.00 mGy-cm CLINICAL HISTORY: [...] in OV> 11/19/241906 DD/ 05 TD/TT: 11/19/241905 Financial Secretary: [facility] External Provider IMG CT PROCEDURES Final Result * (ABNORMAL) POCT HGB A1C (11/02/2024 9:46 AM EDT) [facility] Hemoglobin A1C 8.2(A) 4.0 - 5.7 % QC Media Lot # [id number] Lot# Expiration Date Blood 11/02/2024 9:46 AM EDT Bobby David MD POINT OF CARE TEST ENTER/EDIT OR DERABLES Final Result * POCT Glucose (11/02/2024 9:44 AM EDT) Pathologist [facility] Glucose Blood, POC 182 60 - 200 mg/dL QC Media Lot # [id number] Lot# Expiration Date ,025 Blood Capillary blood specimen / Unknown 11/02/2024 9:44 AM EDT us Bobby David MD POINT OF CARE TEST ENTER/EDIT OR DERABLES Final Result * (ABNORMAL) Albumin, Random Urine W/Creatinine (12/29/2023 11:20 AM EDT) Creatinine, Urine 157.96 mg/dL [facility] Microalbumin Urine 47.0 mg/L H [facility] Microalbum Creatinine Ratio Ur 29.7(H) <30 ug/mg cr [facility] Comment:Albumin/Creatinine R atio Reference Ranges: Normal: < 30 ug/mg creatinine Microalbuminuria: 30 - 300 ug/mg creatinineClinical Albuminuria: > 300 ug/mg creatinine Urine (Urine, Random) 12/29/2023 11:20 AM EDT 12/29/2023 1:01 PM EDT us Bobby David MD LAB URINE ORDERABLES Final Resul t Performing Organization Address City/State/[facility] Co de Phone Number [facility] [address] [place] [phone] * (ABNORMAL) Lipid Panel, Standard (12/29/2023 11:17 AM EDT) Triglycerides 172(H) <150 mg/dL [facility] Comment:Desirable Triglyceri de: less than 150 mg/dLBorderline High Triglyceride 150-199 mg/dLHigh Triglyceride: 200-499 mg/dLVery High Triglyceride: greater than or equal to 5OO mg/dL Cholesterol 140 <200 mg/dL [facility] Comment:Desirable Cholestero l: less than 200 mg/dLBorderline High Cholesterol: 200-239 mg/dLHigh Cholesterol: greater than 239 mg/dL LDL Cholesterol Calculated 61 <100 mg/dL [facility] Comment:Desirable LDL: less than 100 mg/dLNear Optimal/Above Optimal LDL: 110- 129 mg/dLBorderline High LDL: 130-159 mg/dLHigh LDL: 160-189 mg/dLVery High LDL: greater than or equal to 190 mg/dL HDL Cholesterol 45 >40 mg/dL [facility] Comment:Desirable HDL: great er than 40 mg/dL Note: This HDL assay may give artificially low results in patients with liver disease. Blood Venous blood specimen / Unknown 12/29/2023 11:17 AM EDT 12/29/2023 1:03 PM EDT Bobby David MD LAB BLOOD ORDERABLES Final Resul t [facility] [address] [place] [phone] * (ABNORMAL) Colonoscopy (07/16/2022) Colonoscopy Abnormal( A) Normal Comment:repeat in 3-5 yrs Historical Provider MD HEALTH MAINTENANCE Final Result * Pap Smear (02/27/2021 10:30 AM EST) Pap smear Perfomed [facility] Provider MD HEALTH MAINTENANCE Final Result * THINPREP TIS PAP AND HPV mRNA E6/E7 REFLEX HPV 16,18/45 (02/27/2021 10:24 AM EST) Clinical Information: Postmenopausal [facility] COMMENT SEE COMMENT FOUNDATI [...] has been evaluated with computer assisted technology. [facility] Rubber Goods Assembler: SEE COMMENT [facility] Comment: CULP, CT(ASCP) CT screening location: [place] [address] HPV nRNA E6/E7 Not Detected Not Detected [facility] Comment: Methodology: Janitorial Maintenance Worker-Mediated Amplification This assay detects E6/E7 viral messenger RNA (mRNA) from 14 high-risk HPV types (16,18,31,33,35,39,45,51,52,56,58,59,66,68). The analytical performance characteristics of this assay have been determined by [employer]. The modifications have not been cleared or approved by the FDA. This assay has been validated pursuant to the CLIA regulations and is used for clinical purposes. For additional information, please refer to http://education.[employer]/faq/GQB483a5 (This link if provided for information/ educational [...] PATHOLOGY ORDERABLES Final Result Performing Organization Address City/State/[facility] Co de Phone Number [facility] [address] from Last 3 Months or Most Recently Relevant to Health Maintenance Insurance [address] [place] [id number] [employer] < 65 DEBORAH SILVA [phone] Care Teams Aquaculture Worker Relationship Specialty Start Date End Date Name, MD Bobby [address] [place] [phone] PCP - General Family Medicine 06/01/15 Eloina 05/13/24
--- OUTSIDE RECORDS SUMMARY | 2025-01-16 21:13 | XMS_ITS | Encounter Summary ---
Author Organization [employer] Address [address] [place] [address] Care Team Providers Care Capacity Planning Engineer Name Role Phone Name, Bobby GRADY Primary Care Provider Reason for Visit * Reason Comments Med Refill Encounter Details Date Type Department Care Team ([facility] Contact Info) Description 07/20/2024 Refill [facility] [address] [place] [address] Sherly Pichardo FNP [address] [place] [address] Social History Tobacco Use Types Packs/Day Years [...] Description 01/25/2025 9:30 AM EDT Office Visit [facility] [address] [place] [phone] Name, MD Bobby [address] [place] [address] 02/10/2025 9:30 AM EST Telemedicine [facility] [address] [place] [address] Skye Melton, HODA 03/14/2025 10:00 AM EST Office Visit [facility] OPTOMETRY [address] [place] [address] Abbey Degn OD [address] [place] [address] documented as of this encounter Goals Goal Patient Goal Type Associated Problems Recent Progress Patient-Stated? Author Smoking cessation General No Inga Magaña, PharmD documented as of this encounter Visit Diagnoses Not on filedocumented in this encounter Additional Health Concerns Assessment Noted Time PHQ-9 Depression Total Score: 0 06/19/19 24 10:09 AM EDT documented as of this encounter Care Teams Capacity Planning Engineer Relationship Specialty Start Date End Date Name, MD Bobby [address] [place] [address] PCP - General Family Medicine 06/01/15 Eloina 05/13/24 documented as of this encounter
--- OUTSIDE RECORDS SUMMARY | 2025-01-16 21:14 | XMS_ITS | Encounter Summary ---
Author Organization [email or web address] Address [address] [place] [address] [address] [place] [address] Care Team Providers Care Manager Transportation Name Role Phone Name, Bobby GRADY Primary Care Provider Inga Magaña PharmD Unavailable Reason for Visit * Reason Comments Med Refill Encounter Details Date Type Department Care Team (Late st Contact Info) Description 05/15/2022 Refill [facility] [address] [place] [address] Name, MD Bobby [address] [place] [address] Seasonal allergic rhinitis, unspecified trigger (Primary Dx) [...] Description 01/25/2025 9:30 AM EDT Office Visit [facility] [address] [place] [phone] Name, MD Bobby [address] [place] [phone] 02/10/2025 9:30 AM EST Telemedicine [facility] [address] [place] [phone] Skye Melton, RN 03/14/2025 10:00 AM EST Office Visit [facility]ET[facility] [address] [place] [address] Abbey Deng, OD [address] [place] [address] documented as of this encounter Visit Diagnoses Diagnosis Seasonal allergic rhinitis, unspecified trigger- Primary documented in this encounter Additional Health Concerns Assessment Noted Time PHQ-9 Depression Total Score: 0 03/11/20 11:47 AM EST documented as of this encounter Care Teams Manager Transportation Relationship Specialty Start Date End Date Name, MD Bobby [address] [place] [phone] PCP - General Family Medicine 06/01/15 Inga Magaña PharmD [address] [place] [phone] Pharmacist Internal Medicine 01/07/23 09/29/23 Eloina 05/13/24 documented as of this encounter
--- OUTSIDE RECORDS SUMMARY | 2025-01-16 21:14 | XMS_ITS | Encounter Summary ---
Author Organization [employer] Address [address] [place] [address] 7[address] [place] [address] Care Team Providers Care Veterinarian Name Role Phone Name, Bobby GRADY Primary Care Provider [phone] Inga Magaña PharmD Unavailable Reason for Visit * Reason Comments Med Refill Encounter Details Date Type Department Care Team (Late st Contact Info) Description 10/03/2022 Refill [facility] [address] [place] [address] Name, MD Bobby [address] [place] [address] Lumbar radiculopathy Social History Tobacco Use Types [...] Description 01/25/2025 9:30 AM EDT Office Visit [facility] [address] [place] [phone] Name, MD Bobby [address] [place] [address] 02/10/2025 9:30 AM EST Telemedicine [facility] [address] [place] [address] Skye Melton, HODA 03/14/2025 10:00 AM EST Office Visit [facility] OPT[facility] [address] [place], [place] [phone] Abbey Deng OD [address] [place], [place] documented as of this encounter Visit Diagnoses Diagnosis Lumbar radiculopathy Thoracic or lumbosacral neuritis or radiculitis, unspecified documented in this encounter Additional Health Concerns Assessment Noted Time PHQ-9 Depression Total Score: 0 03/11/20 22 11:47 AM EST documented as of this encounter Care Teams Veterinarian Relationship Specialty Start Date End Date Name, MD Bobby [address] [place] [phone] PCP - General Family Medicine 06/01/15 Inga Magaña PharmD [address] [place] [phone] Pharmacist Internal Medicine 01/07/23 09/29/23 Eloina 05/13/24 documented as of this encounter
--- NOTE | 2025-01-16 21:15 | MHC.EDTECH ---
pt ambulated to and from bathroom with rolling O2 tank on 2L NC, urine sample collected, RN aware
[2025-01-16 21:23] LABS: Glucose, Whole Blood 276 mg/dL (60-115)
--- NOTE | 2025-01-16 21:58 | PHA.MEDREC ---
Addendum entered by Chelle Vela 01/16/25 23:02: Spoke with pt again about Pregabalin and she stated she is taking 100mg in the morning and 150mg at bedtime; pt has an overabundance of those doses at home and states she talked to her Dr about taking it that way a few months ago . Addendum entered by Kenna Duran RPh 01/16/25 22:18: REVIEWED BY PHARMACIST Original Note: Pharmacy Consult ? Medication Reconciliation Pharmacy has completed the medication reconciliation. Spoke with pt and she confirmed her medications. Pt states when he was at her last rehab facility recently and was sent home with an over abundance of all of her medications. Pt still has Trelegy at home and uses 1 puff daily, Atorvastatin 80mg at bedtime, she started Doxycycine 100mg tab BID and Prednisone 20mg BID on (pt finished the Prednisone 20mg regimen yesterday), she takes Prednisone 5mg daily but that was on hold while she was taking the 20mg regimen, she takes Pregabalin 100mg tabs BID; instead of TID as written and she takes Trulicity once a week on Wednesdays and LT it 01/11.
[2025-01-16 22:08] VITALS: BP 133/64; PULSE 77; RESP 22; TEMP 36.5; O2SAT 96
--- NOTE | 2025-01-16 22:15 | PC.NURSE ---
pt SPO2 consistently at 96% on 3L O2 via NC, pt stating she no longer feels SOB, O2 dropped to 2L via NC
[2025-01-17] VITALS (13 sets, daily range): BP systolic 120–155; BP diastolic 59–92; PULSE 75–97; RESP 14–22; TEMP 36.1–36.6; O2SAT 92–94; BMI 27.9
--- NOTE | 2025-01-17 00:40 | PC.NURSE ---
at this time the pt requesting oxycodone medication for 8/10 pain, baclofen for spasms and cough. Provider Yuliana Sykes made aware, pending new orders. @0108 provider placed order for Dilaudid IV push @0130 attempted to medicate pt per MAY, pt stated that they are allergic to Dilaudid, stating It makes me go crazy, it's on my list @0135 provider Yuliana Sykes made aware that the pt has an allergy to Dilaudid and that medication is on pt allergy list, pending new pain medication order
[2025-01-17] MEDS: Albuterol/Iprat 2.5/0.5MG 3 ML AMPUL.NEB INHALE ×4 (02:17→19:44)
[2025-01-17 05:08] LABS: Hematocrit 51.7 % (37.0-47.0); Hemoglobin 16.8 g/dl (12.0-16.0); Mean Corpuscular HGB Conc 32.5 g/dl (31.0-35.0); Mean Corpuscular Hemoglobin 28.0 pg (27.0-33.0); Mean Corpuscular Volume 86.3 fL (80.0-98.0); NRBC Abs Auto 0.000 X10*3/uL (0.0-0.012); NRBC Pct Auto 0.0 /100WBC (0.0-0.2); Platelet Count 231 X10*3/uL (160-400); Red Blood Count 5.99 X10*6/uL (4.20-5.50); White Blood Count 9.9 X10*3/uL (4.8-10.8)
[2025-01-17 05:27] LABS: Alanine Aminotransferase 31 U/L (0-31); Albumin Level 3.9 g/dL (3.5-5.0); Alkaline Phosphatase 74 U/L (39-117); Anion Gap 14 (12-20); Aspartate Amino Transferase 20 U/L (5-31); Blood Urea Nitrogen 26 mg/dL (9-16); Calcium 8.5 mg/dL (8.4-10.2); Carbon Dioxide 22 mmol/L (22-29); Chloride 110 mmol/L (96-108); Creatinine Clr Calc Pharmacy 68.6; Estimated Glomerular Filt Rate > 60; Potassium 4.1 mmol/L (3.3-5.1); Sodium 142 mmol/L (135-145); Total Protein 6.5 g/dL (6.5-8.0)
[2025-01-17 09:24] LABS: Glucose, Whole Blood 594 mg/dL (60-115)
--- NOTE | 2025-01-17 09:26 | P.PNIM_ITS ---
Subjective Subjective Date of Service: 01/17/25 Review of Systems Follow up Pneumonia and COPD exacerbation still sob and wheezing Physical Exam 2 Exam: Exam: Appearing in no acute distress lung sounds Exp wheezing heart regular rate rhythm, clear S1, S2 positive bowel sounds, abdomen is soft, nontender neuro patient is alert x3, no focal deficits Vital Signs: Vital Signs: Last Vital Signs Temp 97.4 F 01/17/25 04:17 Pulse 77 01/17/25 07:41 Resp 18 01/17/25 07:41 BP 133/67 01/17/25 04:17 Pulse Ox 93 01/17/25 04:17 O2 Del Method Nasal Cannula 01/17/25 04:17 O2 Flow Rate 2 01/17/25 04:17 BMI result Body Mass Index 25.5 Objective Data Active Medications Acetaminophen (Acetaminophen 325 Mg Tablet) 650 mg PO Q6H PRN PRN Reason: Pain, Mild 1-3,fever,headache Albuterol/Ipratropium (Albuterol/Iprat 2.5/0.5mg 3 Ml Ampul.Neb) 3 ml INHALE Q4H PRN PRN Reason: Shortness of Breath/Wheezing Albuterol/Ipratropium (Albuterol/Iprat 2.5/0.5mg 3 Ml Ampul.Neb) 3 ml INHALE Q6H SOM Last Admin: 01/17/25 07:41 Dose: 3 ml Documented By: DANIELA Allopurinol (Allopurinol 100 Mg Tablet) 100 mg PO DAILY SOM Aspirin (Aspirin Enteric Coated 81 Mg Tablet.Dr) 81 mg PO BEDTIME SOM Atorvastatin Calcium (Atorvastatin Calcium 80 Mg Tablet) 80 mg PO BEDTIME SOM; Protocol Baclofen (Baclofen 10 Mg Tablet) 10 mg PO Q8H PRN PRN Reason: Muscle Spasm Benzonatate (Benzonatate 100 Mg Capsule) 100 mg PO TID PRN PRN Reason: Cough Last Admin: 01/17/25 00:38 Dose: 100 mg Documented By: JESSICA Calcium Carbonate (Calcium Carbonate 750 Mg Tab.Chew) 750 mg PO Q4H PRN PRN Reason: Heartburn Carvedilol (Carvedilol 6.25 Mg Tablet) 6.25 mg PO BID SOM; Protocol Ceftriaxone Sodium (Ceftriaxone Sodium 1 Gm Vial) 1 gm IVPUSH Q24H SOM Dextrose (Dextrose 50 % 25 Gm/50 Ml Syringe) 25 gm IVPUSH Q15M PRN; Protocol PRN Reason: per Hypoglycemia Standing Ord. Doxycycline Monohydrate (Doxycycline Monohydrate 100 Mg Capsule) 100 mg PO Q12H [facility] Enoxaparin Sodium (Enoxaparin Sodium 40 Mg/0.4 Ml Syringe) 40 mg SUBCUT Q24H [facility] Last Admin: 01/16/25 21:27 Dose: 40 mg Documented By: JESSICA Famotidine (Famotidine 20 Mg Tablet) 20 mg PO DAILY [facility] Glucose (Glucose Gel 15 Gm Gel..Gram.) 15 gm PO Q15M PRN; Protocol PRN Reason: per Hypoglycemia Standing Ord. Insulin Human Lispro (Insulin Lispro 100 Unit/Ml 3 Ml Vial) 0 unit SUBCUT QIDACHS [facility]; Protocol Last Admin: 01/16/25 21:28 Dose: 6 unit Documented By: JESSICA Levothyroxine Sodium (Levothyroxine Sodium 112 Mcg Tablet) 112 mcg PO DAILY@0600 [facility] Last Admin: 01/17/25 06:13 Dose: 112 mcg Documented By: JESSICA Loratadine (Loratadine 10 Mg Tablet) 10 mg PO DAILY PRN PRN Reason: allergies Magnesium Hydroxide (Milk Of Magnesia 30 Ml Oral.Susp) 30 ml PO DAILY PRN PRN Reason: Constipation Melatonin (Melatonin 3 Mg Tablet) 6 mg PO BEDTIME PRN PRN Reason: Insomnia Methylprednisolone Sodium Succinate (Methylprednisolone Sod Succ 40 Mg/Ml Vial) 40 mg IVPUSH Q6H [facility] Last Admin: 01/17/25 04:14 Dose: 40 mg Documented By: JESSICA Sodium Chloride (0.9 % Sodium Chloride Flush 3 Ml Syringe) 3 ml IVFLUSH QSHIFT [facility] Last Admin: 01/17/25 00:00 Dose: 3 ml Documented By: JESSICA Labs 01/17/25 04:05 01/17/25 04:05 Labs: Laboratory Results - last 24 hr 01/16/25 01/16/25 01/17/25 19:23 21:20 04:05 MCV 85.1 86.3 MCH 28.0 28.0 MCHC 32.9 32.5 RDW 14.4 14.2 Plt Count 250 231 MPV 10.1 10.5 Immature Gran % (Auto) 0.5 H Neut % (Auto) 76.5 H Lymph % (Auto) 16.7 L Webb % (Auto) 5.9 Eos % (Auto) 0.1 Baso % (Auto) 0.3 Lymph # (Auto) 3.0 Webb # (Auto) 1.1 Eos # (Auto) 0.0 Baso # (Auto) 0.1 Abs Immat Gran (auto) 0.09 H Absolute Neuts (auto) 13.9 H Absolute Nucleated RBC 0.000 0.000 Nucleated RBC % (auto) 0.0 0.0 Anion Gap 16 14 Estim Creat Clear Calc 57.2 68.6 Estimated GFR 58 > 60 POC Glucose 276 H Random Glucose 364 H* 264 H Lactic Acid 2.0 Calcium 8.9 8.5 Total Bilirubin 0.6 0.3 AST 29 20 ALT 39 H 31 Alkaline Phosphatase 84 74 Total Protein 6.9 6.5 Albumin 4.1 3.9 Lipase 19 COVID-19 (TIMMY) Negative COVID-19 Clin Com See Note Influenza Type A (POLLY) Negative Influenza Type B (POLLY) Negative Influenza A & B Note See Note 01/17/25 09:01 MCV MCH MCHC RDW Plt Count MPV Immature Gran % (Auto) Neut % (Auto) Lymph % (Auto) Webb % (Auto) Eos % (Auto) Baso % (Auto) Lymph # (Auto) Webb # (Auto) Eos # (Auto) Baso # (Auto) Abs Immat Gran (auto) Absolute Neuts (auto) Absolute Nucleated RBC Nucleated RBC % (auto) Anion Gap Estim Creat Clear Calc Estimated GFR POC Glucose 594 H* Random Glucose Lactic Acid Calcium Total Bilirubin AST ALT Alkaline Phosphatase Total Protein Albumin Lipase COVID-19 (TIMMY) COVID-19 Clin Com Influenza Type A (POLLY) Influenza Type B (POLLY) Influenza A & B Note Assessment and Plan (1) COPD exacerbation: Status: Acute Plan 64-year-old female with a past medical history of HTN, HLD, asthma/COPD, hypothyroidism, cardiomyopathy, CAD, diabetes, tobacco dependence, pulmonary nodules, irritable bowel syndrome, MCKAY presented to the hospital today with a chief complaint of shortness of breath. Noted to be in acute COPD exacerbation. Acute hypoxic respiratory failure secondary to pneumonia and COPD exacerbation Acute COPD exacerbation Patient failed outpatient therapy. recent CT chest showed evidence of PE but showed pneumonia Scheduled DuoNebs, IV Solu-Medrol Empirically covered with ceftriaxone and doxycycline Diabetes mellitus type 2 Sliding scale, ADA diet, Lantus Coronary artery disease Continue aspirin, statin, beta gil Heart failure with preserved ejection fraction No exacerbation Continue Jardiance Lumbar spondylosis Chronic back pain Continue oxycodone Obstructive sleep apnea CPAP at bedtime Hypothyroidism Continue levothyroxine GERD Continue PPI Tobacco Smoker last smoked 3 days ago NRT, patch 21mg DVT prophylaxis: Lovenox Code status: Full code Quality Stroke Does the patient have a stroke diagnosis?: No VTE Prior VTE?: No VTE Risk Level:: Medical - moderate - high VTE Device Contraindication: Treatment Not Indicated VTE Drug Contraindication: N/A - Med Ordered
--- NOTE | 2025-01-17 09:43 | MHC.CM.PN ---
Addendum entered by Lili Camacho 01/17/25 09:50: HCP is on file, naming Aryan. Original Note: IMM 01/17/25, Pt. lives with her , PCP confirmed: Bobby David MD. Pt. has home care services from [facility]: a nurse 2 times a week to help with her breathing, since Apr., this is ongoing, will continue. For DME, she has a nebulizer. Transport home is via her . DCP: home, resume VNA services. CM to follow for DC needs.
[2025-01-17] MEDS: oxyCODONE HCl Immed Release 5 MG TABLET PO ×2 (10:21→20:44)
[2025-01-17] MEDS: Insulin Glargine,Hum.rec.anlog 100 UNIT/ML 10 ML VIAL 35 UNIT SUBCUT ×2 (10:22→20:46)
[2025-01-17 11:10] LABS: Glucose, Whole Blood 485 mg/dL (60-115)
--- NOTE | 2025-01-17 12:14 | PC.NURSE ---
Pt has been resting quietly. NAD. unlabored resp at rest.
--- NOTE | 2025-01-17 12:19 | HO.NURTONUR ---
ONe week of increasing SOB. Hx Asthma and COPD on 1L NC at baseline. Was started on prednisone and abx w/o good effect. Hx: HTN, HLD, asthma/COPD, hypothyroidism, cardiomyopathy, CAD, diabetes, tobacco dependence, pulmonary nodules, irritable bowel syndrome, MCKAY presented to the hospital today with a chief complaint of shortness of breath. Noted to be in acute COPD exacerbation. Pt has had high BS. Takes Oxycodone routinely for chronic back pain. Flu and COvid negative. axox3. minimal ambulation in ED.
[2025-01-17 12:59] LABS: Glucose, Whole Blood 319 mg/dL (60-115)
[2025-01-17] MEDS: Nicotine 21 MG PATCH.TD24 TRANSDERMA (15:03)
[2025-01-17] MEDS: 0.9 % Sodium Chloride Flush 3 ML SYRINGE IVFLUSH ×3 (15:04→22:05)
[2025-01-17 16:55] LABS: Glucose, Whole Blood 274 mg/dL (60-115)
[2025-01-17 20:45] LABS: Glucose, Whole Blood 344 mg/dL (60-115)
[2025-01-17] MEDS: Aspirin Enteric Coated 81 MG TABLET.DR PO (20:52)
[2025-01-18] VITALS (9 sets, daily range): BP systolic 135–150; BP diastolic 63–72; PULSE 70–87; RESP 15–18; TEMP 36.1–36.3; O2SAT 89–94
[2025-01-18] MEDS: oxyCODONE HCl Immed Release 5 MG TABLET PO ×3 (03:15→19:48)
[2025-01-18] MEDS: Albuterol/Iprat 2.5/0.5MG 3 ML AMPUL.NEB INHALE ×4 (03:32→19:13)
[2025-01-18 07:27] LABS: Glucose, Whole Blood 242 mg/dL (60-115)
--- NOTE | 2025-01-18 08:54 | HO.PM.IMPN ---
Subjective Subjective Date of Service: 01/18/25 Review of Systems Follow up Pneumonia and COPD exacerbation still sob and wheezing but improving Physical Exam Exam: Exam: Appearing in no acute distress lung sounds are more air but still with expiratory wheezing heart regular rate rhythm, clear S1, S2 positive bowel sounds, abdomen is soft, nontender neuro patient is alert x3, no focal deficits Vital Signs: Vital Signs: Last Vital Signs Temp 97.1 F 01/18/25 07:40 Pulse 87 01/18/25 08:09 Resp 18 01/18/25 08:09 BP 135/68 01/18/25 07:40 Pulse Ox 93 01/18/25 07:40 O2 Del Method Nasal Cannula 01/18/25 07:40 O2 Flow Rate 2.0 01/18/25 07:40 BMI result Body Mass Index 27.9 Objective Data Active Medications Acetaminophen (Acetaminophen 325 Mg Tablet) 650 mg PO Q6H PRN PRN Reason: Pain, Mild 1-3,fever,headache Albuterol/Ipratropium (Albuterol/Iprat 2.5/0.5mg 3 Ml Ampul.Neb) 3 ml INHALE Q4H PRN PRN Reason: Shortness of Breath/Wheezing Albuterol/Ipratropium (Albuterol/Iprat 2.5/0.5mg 3 Ml Ampul.Neb) 3 ml INHALE Q6H [facility] Last Admin: 01/18/25 08:09 Dose: 3 ml Documented By: ZACHERY Allopurinol (Allopurinol 100 Mg Tablet) 100 mg PO DAILY [facility] Last Admin: 01/17/25 09:43 Dose: 100 mg Documented By: AURORA Aspirin (Aspirin Enteric Coated 81 Mg Tablet.Dr) 81 mg PO BEDTIME [facility] Last Admin: 01/17/25 20:52 Dose: 81 mg Documented By: YOVANI Atorvastatin Calcium (Atorvastatin Calcium 80 Mg Tablet) 80 mg PO BEDTIME [facility]; Protocol Last Admin: 01/17/25 20:52 Dose: 80 mg Documented By: YOVANI Comments: BP 122/63 Baclofen (Baclofen 10 Mg Tablet) 10 mg PO Q8H PRN PRN Reason: Muscle Spasm Last Admin: 01/17/25 20:44 Dose: 10 mg Documented By: YOVANI Benzonatate (Benzonatate 100 Mg Capsule) 100 mg PO TID PRN PRN Reason: Cough Last Admin: 01/17/25 20:44 Dose: 100 mg Documented By: YOVANI Calcium Carbonate (Calcium Carbonate 750 Mg Tab.Chew) 750 mg PO Q4H PRN PRN Reason: Heartburn Carvedilol (Carvedilol 6.25 Mg Tablet) 6.25 mg PO BID [facility]; Protocol Last Admin: 01/17/25 20:50 Dose: 6.25 mg Documented By: YOVANI Ceftriaxone Sodium (Ceftriaxone Sodium 1 Gm Vial) 1 gm IVPUSH Q24H [facility] Last Admin: 01/17/25 20:44 Dose: 1 gm Documented By: YOVANI Dextrose (Dextrose 50 % 25 Gm/50 Ml Syringe) 25 gm IVPUSH Q15M PRN; Protocol PRN Reason: per Hypoglycemia Standing Ord. Docusate Sodium (Docusate Sodium 100 Mg Capsule) 100 mg PO BEDTIME [facility] Last Admin: 01/17/25 20:52 Dose: 100 mg Documented By: YOVANI Doxycycline Monohydrate (Doxycycline Monohydrate 100 Mg Capsule) 100 mg PO Q12H [facility] Last Admin: 01/17/25 22:03 Dose: 100 mg Documented By: YOVANI Empagliflozin (Empagliflozin 10 Mg Tablet) 10 mg PO DAILY [facility] Last Admin: 01/17/25 10:20 Dose: 10 mg Documented By: KUSHAL Enoxaparin Sodium (Enoxaparin Sodium 40 Mg/0.4 Ml Syringe) 40 mg SUBCUT Q24H [facility] Last Admin: 01/17/25 20:49 Dose: 40 mg Documented By: YOVANI Famotidine (Famotidine 20 Mg Tablet) 20 mg PO DAILY [facility] Last Admin: 01/17/25 09:43 Dose: 20 mg Documented By: AURORA Glucose (Glucose Gel 15 Gm Gel..Gram.) 15 gm PO Q15M PRN; Protocol PRN Reason: per Hypoglycemia Standing Ord. Insulin Glargine (Insulin Glargine,Hum.Rec.Anlog 100 Unit/Ml 10 Ml Vial) 35 unit SUBCUT BID [facility] Last Admin: 01/17/25 20:46 Dose: 35 unit Documented By: YOVANI Insulin Human Lispro (Insulin Lispro 100 Unit/Ml 3 Ml Vial) 0 unit SUBCUT QIDACHS [facility]; Protocol Last Admin: 01/17/25 20:49 Dose: 8 unit Documented By: YOVANI Levothyroxine Sodium (Levothyroxine Sodium 112 Mcg Tablet) 112 mcg PO DAILY@0600 [facility] Last Admin: 01/18/25 06:01 Dose: 112 mcg Documented By: YOVANI Loratadine (Loratadine 10 Mg Tablet) 10 mg PO DAILY PRN PRN Reason: allergies Magnesium Hydroxide (Milk Of Magnesia 30 Ml Oral.Susp) 30 ml PO DAILY PRN PRN Reason: Constipation Melatonin (Melatonin 3 Mg Tablet) 6 mg PO BEDTIME PRN PRN Reason: Insomnia Methylprednisolone Sodium Succinate (Methylprednisolone Sod Succ 40 Mg/Ml Vial) 40 mg IVPUSH Q6H [facility] Last Admin: 01/18/25 03:15 Dose: 40 mg Documented By: YOVANI Montelukast Sodium (Montelukast Sodium 10 Mg Tablet) 10 mg PO BEDTIME [facility] Last Admin: 01/17/25 20:51 Dose: 10 mg Documented By: YOVANI Nicotine (Nicotine 21 Mg Patch.Td24) 21 mg TRANSDERMA DAILY [facility] Last Admin: 01/17/25 15:03 Dose: 21 mg Documented By: BETSY Omeprazole (Omeprazole 20 Mg Capsule.Dr) 20 mg PO BID@1630 [facility] Last Admin: 01/17/25 16:10 Dose: 20 mg Documented By: BETSY Oxycodone HCl (Oxycodone Hcl Immed Release 5 Mg Tablet) 5 mg PO Q6H PRN PRN Reason: Pain, Moderate(Pain Scale 4-6) Last Admin: 01/18/25 03:15 Dose: 5 mg Documented By: YOVANI Pregabalin (Pregabalin 100 Mg Capsule) 100 mg PO DAILY [facility] Last Admin: 01/17/25 10:21 Dose: 100 mg Documented By: KUSHAL Pregabalin (Pregabalin 150 Mg Capsule) 150 mg PO BEDTIME [facility] Last Admin: 01/17/25 20:52 Dose: 150 mg Documented By: YOVANI Pyridoxine HCl (Pyridoxine Hcl (Vitamin B6) 50 Mg Tablet) 50 mg PO BEDTIME [facility] Last Admin: 01/17/25 20:52 Dose: 50 mg Documented By: YOVANI Senna (Sennosides 8.6 Mg Tablet) 8.6 mg PO BID [facility] Last Admin: 01/17/25 20:52 Dose: 8.6 mg Documented By: YOVANI Sodium Chloride (0.9 % Sodium Chloride Flush 3 Ml Syringe) 3 ml IVFLUSH QSHIFT [facility] Last Admin: 01/17/25 22:05 Dose: 3 ml Documented By: YOVANI Labs 01/17/25 04:05 01/17/25 04:05 Labs: Laboratory Results - last 24 hr 01/17/25 01/17/25 01/17/25 09:01 10:59 12:55 POC Glucose 594 H* 485 H* 319 H 01/17/25 01/17/25 01/18/25 16:49 20:36 07:19 POC Glucose 274 H 344 H 242 H Microbiology Microbiology Results: Microbiology 01/16/25 19:42 Blood Culture - Preliminary Blood - Venous No growth after 24 hours. 01/16/25 19:23 Blood Culture - Preliminary Blood - Venous No growth after 24 hours. Assessment and Plan (1) COPD exacerbation: Status: Acute Plan 64-year-old female with a past medical history of HTN, HLD, asthma/COPD, hypothyroidism, cardiomyopathy, CAD, diabetes, tobacco dependence, pulmonary nodules, irritable bowel syndrome, MCKAY presented to the hospital today with a chief complaint of shortness of breath. Noted to be in acute COPD exacerbation. Acute hypoxic respiratory failure secondary to pneumonia and COPD exacerbation Acute COPD exacerbation failed outpatient therapy. still wheezing recent CT chest showed no evidence of PE but showed pneumonia continue Scheduled DuoNebs, IV Solu-Medrol Empirically covered with ceftriaxone and doxycycline Diabetes mellitus type 2 Sliding scale, ADA diet, Lantus Coronary artery disease Continue aspirin, statin, beta gil Heart failure with preserved ejection fraction No exacerbation Continue Jardiance Lumbar spondylosis Chronic back pain Continue oxycodone Obstructive sleep apnea CPAP at bedtime Hypothyroidism Continue levothyroxine GERD Continue PPI Tobacco Smoker last smoked 3 days ago NRT, patch 21mg DVT prophylaxis: Lovenox Code status: Full code Patient is still wheezing and mildly short of breath with ambulation, continues to require IV steroids and scheduled DuoNebs Quality Stroke Does the patient have a stroke diagnosis?: No VTE Prior VTE?: No VTE Risk Level:: Medical - moderate - high VTE Device Contraindication: Treatment Not Indicated VTE Drug Contraindication: N/A - Med Ordered
--- NOTE | 2025-01-18 09:28 | MHC.CLN ---
CONSULT ADDED DIABETIC 1800 KCAL TO DIET RX DUE TO DX DM AND ELEVATED BLOOD GLUCOSE.
[2025-01-18] MEDS: Nicotine 21 MG PATCH.TD24 TRANSDERMA (09:38)
[2025-01-18] MEDS: Insulin Glargine,Hum.rec.anlog 100 UNIT/ML 10 ML VIAL 35 UNIT SUBCUT ×2 (09:48→21:50)
[2025-01-18] MEDS: 0.9 % Sodium Chloride Flush 3 ML SYRINGE IVFLUSH ×3 (09:49→19:48)
[2025-01-18] MEDS: guaiFENesin LA 600 MG TAB.ER.12H PO ×2 (10:48→21:52)
[2025-01-18 11:25] LABS: Glucose, Whole Blood 406 mg/dL (60-115)
--- NOTE | 2025-01-18 15:54 | MHC.CM.PN ---
PER ROUNDS PT EXPECTED TO DC 01/19 PLAN REMAINS HOME WITH [facility]
[2025-01-18 16:26] LABS: Glucose, Whole Blood 192 mg/dL (60-115)
[2025-01-18] MEDS: Milk of Magnesia 30 ML ORAL.SUSP PO (19:48)
[2025-01-18 20:51] LABS: Glucose, Whole Blood 239 mg/dL (60-115)
[2025-01-18] MEDS: Aspirin Enteric Coated 81 MG TABLET.DR PO (21:53)
[2025-01-19] VITALS (11 sets, daily range): BP systolic 107–159; BP diastolic 71–88; PULSE 60–84; RESP 16–19; TEMP 36–36.3; O2SAT 88–95
[2025-01-19] MEDS: Albuterol/Iprat 2.5/0.5MG 3 ML AMPUL.NEB INHALE ×4 (02:02→18:41)
[2025-01-19] MEDS: oxyCODONE HCl Immed Release 5 MG TABLET PO ×2 (04:35→14:51)
[2025-01-19 07:40] LABS: Glucose, Whole Blood 154 mg/dL (60-115)
[2025-01-19] MEDS: Insulin Glargine,Hum.rec.anlog 100 UNIT/ML 10 ML VIAL 35 UNIT SUBCUT ×2 (08:22→21:08)
[2025-01-19] MEDS: 0.9 % Sodium Chloride Flush 3 ML SYRINGE IVFLUSH ×2 (08:23→14:40)
[2025-01-19] MEDS: Nicotine 21 MG PATCH.TD24 TRANSDERMA (08:24)
[2025-01-19] MEDS: guaiFENesin LA 600 MG TAB.ER.12H PO ×2 (08:27→21:10)
[2025-01-19 11:46] LABS: Glucose, Whole Blood 301 mg/dL (60-115)
--- NOTE | 2025-01-19 12:05 | PC.RT ---
pt instructed on the use of aerobika (flutter valve) for her PNA. She savage well. Added bubble bottle to her oxygen. pt has been hydrating well she says she hs been drinking about 3 pitchers a day. Will hold off mucomyst for now if this works. If not, then will speak to provider and add mucomyst.
[2025-01-19] MEDS: Milk of Magnesia 30 ML ORAL.SUSP PO (14:50)
[2025-01-19 16:41] LABS: Glucose, Whole Blood 178 mg/dL (60-115)
--- NOTE | 2025-01-19 16:59 | P.PNIM_ITS ---
Subjective Subjective Date of Service: 01/19/25 Interval History: Seen and examined this morning Follow-up for acute COPD exacerbation Still feeling short of breath No phlegm production Review of Systems Review of Systems: Yes all other systems are reviewed and are negative Constitutional Constitutional: Denies chills and Denies fever(s) ENT Ears, Nose, Mouth, and Throat: Denies dizziness Cardiovascular Cardiovascular: Denies chest pain, Denies palpitations and Reports dyspnea Respiratory Respiratory: Reports dyspnea Neurologic Neurologic: Denies dizziness Endocrine Endocrine: Denies palpitations Physical Exam 2 Vital Signs: Vital Signs: Last Vital Signs Temp 97.3 F 01/19/25 16:00 Pulse 75 01/19/25 16:00 Resp 19 01/19/25 16:00 BP 107/86 01/19/25 16:00 Pulse Ox 91 L 01/19/25 16:00 O2 Del Method Nasal Cannula 01/19/25 16:00 O2 Flow Rate 2 01/19/25 16:00 BMI result Body Mass Index 27.9 Const: General: cooperative, comfortable, alert and awake Nutritional Appearance: average body habitus Orientation/consciousness: patient oriented x3 Resp: Other: b/l expiratory wheeze Effort & Inspection: normal respiratory effort and able to speak in complete sentences Cardio: Rate: regular rate GI: Inspection: No distended Palpation (GI): Soft to palpation Neuro: Other: grossly nonfocal General: patient oriented x3 Objective Data Active Medications Acetaminophen (Acetaminophen 325 Mg Tablet) 650 mg PO Q6H PRN PRN Reason: Pain, Mild 1-3,fever,headache Albuterol/Ipratropium (Albuterol/Iprat 2.5/0.5mg 3 Ml Ampul.Neb) 3 ml INHALE Q4H PRN PRN Reason: Shortness of Breath/Wheezing Albuterol/Ipratropium (Albuterol/Iprat 2.5/0.5mg 3 Ml Ampul.Neb) 3 ml INHALE Q6H [facility] Last Admin: 01/19/25 13:49 Dose: 3 ml Documented By: CORY Allopurinol (Allopurinol 100 Mg Tablet) 100 mg PO DAILY [facility] Last Admin: 01/19/25 08:25 Dose: 100 mg Documented By: ROBERT Aspirin (Aspirin Enteric Coated 81 Mg Tablet.) 81 mg PO BEDTIME [facility] Last Admin: 01/18/25 21:53 Dose: 81 mg Documented By: MORRO Atorvastatin Calcium (Atorvastatin Calcium 80 Mg Tablet) 80 mg PO BEDTIME [facility]; Protocol Last Admin: 01/18/25 21:52 Dose: 80 mg Documented By: MORRO Baclofen (Baclofen 10 Mg Tablet) 10 mg PO Q8H PRN PRN Reason: Muscle Spasm Last Admin: 01/19/25 14:52 Dose: 10 mg Documented By: ROBERT Benzonatate (Benzonatate 100 Mg Capsule) 100 mg PO TID PRN PRN Reason: Cough Last Admin: 01/19/25 14:52 Dose: 100 mg Documented By: ROBERT Calcium Carbonate (Calcium Carbonate 750 Mg Tab.Chew) 750 mg PO Q4H PRN PRN Reason: Heartburn Carvedilol (Carvedilol 6.25 Mg Tablet) 6.25 mg PO BID [facility]; Protocol Last Admin: 01/19/25 08:29 Dose: 6.25 mg Documented By: ROBERT Ceftriaxone Sodium (Ceftriaxone Sodium 1 Gm Vial) 1 gm IVPUSH Q24H [facility] Last Admin: 01/18/25 21:48 Dose: 1 gm Documented By: MORRO Dextrose (Dextrose 50 % 25 Gm/50 Ml Syringe) 25 gm IVPUSH Q15M PRN; Protocol PRN Reason: per Hypoglycemia Standing Ord. Docusate Sodium (Docusate Sodium 100 Mg Capsule) 100 mg PO BEDTIME [facility] Last Admin: 01/18/25 21:52 Dose: 100 mg Documented By: MORRO Doxycycline Monohydrate (Doxycycline Monohydrate 100 Mg Capsule) 100 mg PO Q12H [facility] Last Admin: 01/19/25 10:48 Dose: 100 mg Documented By: ROBERT Empagliflozin (Empagliflozin 10 Mg Tablet) 10 mg PO DAILY [facility] Last Admin: 01/19/25 08:27 Dose: 10 mg Documented By: ROBERT Enoxaparin Sodium (Enoxaparin Sodium 40 Mg/0.4 Ml Syringe) 40 mg SUBCUT Q24H [facility] Last Admin: 01/18/25 21:50 Dose: 40 mg Documented By: MORRO Famotidine (Famotidine 20 Mg Tablet) 20 mg PO DAILY [facility] Last Admin: 01/19/25 08:27 Dose: 20 mg Documented By: ROBERT Glucose (Glucose Gel 15 Gm Gel..Gram.) 15 gm PO Q15M PRN; Protocol PRN Reason: per Hypoglycemia Standing Ord. Guaifenesin (Guaifenesin La 600 Mg Tab.Er.12h) 600 mg PO BID [facility] Last Admin: 01/19/25 08:27 Dose: 600 mg Documented By: ROBERT Insulin Glargine (Insulin Glargine,Hum.Rec.Anlog 100 Unit/Ml 10 Ml Vial) 35 unit SUBCUT BID [facility] Last Admin: 01/19/25 08:22 Dose: 35 unit Documented By: ROBERT Insulin Human Lispro (Insulin Lispro 100 Unit/Ml 3 Ml Vial) 0 unit SUBCUT QIDACHS [facility]; Protocol Last Admin: 01/19/25 16:50 Dose: 2 unit Documented By: ROBERT Levothyroxine Sodium (Levothyroxine Sodium 112 Mcg Tablet) 112 mcg PO DAILY@0600 [facility] Last Admin: 01/19/25 05:07 Dose: 112 mcg Documented By: MORRO Loratadine (Loratadine 10 Mg Tablet) 10 mg PO DAILY PRN PRN Reason: allergies Magnesium Hydroxide (Milk Of Magnesia 30 Ml Oral.Susp) 30 ml PO DAILY PRN PRN Reason: Constipation Last Admin: 01/19/25 14:50 Dose: 30 ml Documented By: ROBERT Melatonin (Melatonin 3 Mg Tablet) 6 mg PO BEDTIME PRN PRN Reason: Insomnia Methylprednisolone Sodium Succinate (Methylprednisolone Sod Succ 40 Mg/Ml Vial) 40 mg IVPUSH Q6H [facility] Last Admin: 01/19/25 15:49 Dose: 40 mg Documented By: ROBERT Montelukast Sodium (Montelukast Sodium 10 Mg Tablet) 10 mg PO BEDTIME [facility] Last Admin: 01/18/25 21:52 Dose: 10 mg Documented By: MORRO Nicotine (Nicotine 21 Mg Patch.Td24) 21 mg TRANSDERMA DAILY [facility] Last Admin: 01/19/25 08:24 Dose: 21 mg Documented By: ROBERT Pt Owned Med ( Dulaglutide 1.5mg/0. 5ml) 1 each SUBCUT We [facility] Last Admin: 01/18/25 11:55 Dose: 1 each Documented By: KEYSHAWN Omeprazole (Omeprazole 20 Mg Capsule.Dr) 20 mg PO BID@1630 [facility] Last Admin: 01/19/25 15:50 Dose: 20 mg Documented By: ROBERT Oxycodone HCl (Oxycodone Hcl Immed Release 5 Mg Tablet) 5 mg PO Q6H PRN PRN Reason: Pain, Moderate(Pain Scale 4-6) Last Admin: 01/19/25 14:51 Dose: 5 mg Documented By: ROBERT Pregabalin (Pregabalin 100 Mg Capsule) 100 mg PO DAILY [facility] Last Admin: 01/19/25 08:27 Dose: 100 mg Documented By: ROBERT Pregabalin (Pregabalin 150 Mg Capsule) 150 mg PO BEDTIME [facility] Last Admin: 01/18/25 21:52 Dose: 150 mg Documented By: LEFNO Pyridoxine HCl (Pyridoxine Hcl (Vitamin B6) 50 Mg Tablet) 50 mg PO BEDTIME [facility] Last Admin: 01/18/25 21:52 Dose: 50 mg Documented By: MORRO Senna (Sennosides 8.6 Mg Tablet) 8.6 mg PO BID [facility] Last Admin: 01/19/25 08:28 Dose: 8.6 mg Documented By: ROBERT Sodium Chloride (0.9 % Sodium Chloride Flush 3 Ml Syringe) 3 ml IVFLUSH QSHIFT [facility] Last Admin: 01/19/25 14:40 Dose: 3 ml Documented By: ROBERT Sodium Chloride (Sodium Chloride 0.65 % Nasal 44 Ml Sprbtl) 1 spray NOSTRIL-B Q1H PRN PRN Reason: Nasal Congestion Labs 01/17/25 04:05 01/17/25 04:05 Labs: Laboratory Results - last 24 hr 01/18/25 01/19/25 01/19/25 20:44 07:16 11:37 POC Glucose 239 H 154 H 301 H 01/19/25 16:35 POC Glucose 178 H Microbiology Microbiology Results: Microbiology 01/16/25 19:42 Blood Culture - Preliminary Blood - Venous No growth after 48 hours. 01/16/25 19:23 Blood Culture - Preliminary Blood - Venous No growth after 48 hours. Assessment and Plan (1) COPD (chronic obstructive pulmonary disease): Status: Acute Plan this is a 64-year-old female with a past medical history of HTN, HLD, asthma/COPD, hypothyroidism, cardiomyopathy, CAD, diabetes, tobacco dependence, pulmonary nodules, irritable bowel syndrome, MCKAY presented to the hospital today with a chief complaint of shortness of breath. Noted to be in acute COPD exacerbation. Acute hypoxic respiratory failure secondary to pneumonia and COPD exacerbation Acute COPD exacerbation failed outpatient therapy. still wheezing recent CT chest showed no evidence of PE but showed pneumonia continue Scheduled DuoNebs, IV Solu-Medrol - wean to q8h Empirically covered with ceftriaxone and doxycycline Diabetes mellitus type 2 Sliding scale, ADA diet, Lantus Coronary artery disease Continue aspirin, statin, beta gil Heart failure with preserved ejection fraction No exacerbation Continue Jardiance Lumbar spondylosis Chronic back pain Continue oxycodone Obstructive sleep apnea CPAP at bedtime Hypothyroidism Continue levothyroxine GERD Continue PPI Tobacco dependence last smoked 3 days ago NRT, patch 21mg smoking cessation advised DVT prophylaxis: Lovenox Code status: Full code Patient is still wheezing and short of breath with ambulation, continues to require IV steroids and scheduled DuoNebs Quality Stroke Does the patient have a stroke diagnosis?: No VTE Prior VTE?: No VTE Risk Level:: Medical - moderate - high VTE Device Contraindication: Treatment Not Indicated VTE Drug Contraindication: N/A - Med Ordered
[2025-01-19 19:30] LABS: Glucose, Whole Blood 262 mg/dL (60-115)
[2025-01-19] MEDS: Aspirin Enteric Coated 81 MG TABLET.DR PO (21:11)
[2025-01-20] VITALS (8 sets, daily range): BP systolic 150–169; BP diastolic 77–79; PULSE 71–90; RESP 16–18; TEMP 36.1–36.7; O2SAT 90–96
[2025-01-20] MEDS: 0.9 % Sodium Chloride Flush 3 ML SYRINGE IVFLUSH ×4 (00:46→20:37)
[2025-01-20] MEDS: Albuterol/Iprat 2.5/0.5MG 3 ML AMPUL.NEB INHALE ×4 (03:28→18:50)
[2025-01-20 07:30] LABS: Glucose, Whole Blood 205 mg/dL (60-115)
[2025-01-20] MEDS: Nicotine 21 MG PATCH.TD24 TRANSDERMA (07:33)
[2025-01-20] MEDS: guaiFENesin LA 600 MG TAB.ER.12H PO ×2 (07:37→20:38)
[2025-01-20] MEDS: Insulin Glargine,Hum.rec.anlog 100 UNIT/ML 10 ML VIAL 35 UNIT SUBCUT ×2 (07:50→20:36)
[2025-01-20] MEDS: Milk of Magnesia 30 ML ORAL.SUSP PO ×2 (07:52→20:53)
[2025-01-20] MEDS: oxyCODONE HCl Immed Release 5 MG TABLET PO ×3 (07:52→22:29)
[2025-01-20 11:26] LABS: Glucose, Whole Blood 327 mg/dL (60-115)
--- NOTE | 2025-01-20 15:32 | MHC.CM.PN ---
per rounds pt not medically ready for dc
--- NOTE | 2025-01-20 16:09 | HO.PM.IMPN ---
Subjective Subjective Date of Service: 01/20/25 Interval History: seen and examined this morning follow up for copd no overnight events coughing, sob Review of Systems Review of Systems: Yes all other systems are reviewed and are negative Constitutional Constitutional: Denies chills and Denies fever(s) Physical Exam Vital Signs: Vital Signs: Last Vital Signs Temp 98.0 F 01/20/25 15:50 Pulse 78 01/20/25 15:50 Resp 18 01/20/25 15:50 BP 156/77 H 01/20/25 15:50 Pulse Ox 92 01/20/25 15:50 O2 Del Method Nasal Cannula 01/20/25 15:50 O2 Flow Rate 2 01/20/25 15:50 BMI result Body Mass Index 27.9 Const: General: cooperative, comfortable, alert and awake Nutritional Appearance: average body habitus Orientation/consciousness: patient oriented x3 Resp: Other: b/l expiratory wheeze Effort & Inspection: normal respiratory effort and able to speak in complete sentences Cardio: Rate: regular rate GI: Inspection: No distended Palpation (GI): Soft to palpation Neuro: Other: grossly nonfocal General: patient oriented x3 Objective Data Active Medications Acetaminophen (Acetaminophen 325 Mg Tablet) 650 mg PO Q6H PRN PRN Reason: Pain, Mild 1-3,fever,headache Albuterol/Ipratropium (Albuterol/Iprat 2.5/0.5mg 3 Ml Ampul.Neb) 3 ml INHALE Q4H PRN PRN Reason: Shortness of Breath/Wheezing Albuterol/Ipratropium (Albuterol/Iprat 2.5/0.5mg 3 Ml Ampul.Neb) 3 ml INHALE Q6H SOM Last Admin: 01/20/25 15:26 Dose: 3 ml Documented By: EMILIO Allopurinol (Allopurinol 100 Mg Tablet) 100 mg PO DAILY [facility] Last Admin: 01/20/25 07:38 Dose: 100 mg Documented By: ROBERT Aspirin (Aspirin Enteric Coated 81 Mg Tablet.) 81 mg PO BEDTIME SOM Last Admin: 01/19/25 21:11 Dose: 81 mg Documented By: FRANCISCO J Atorvastatin Calcium (Atorvastatin Calcium 80 Mg Tablet) 80 mg PO BEDTIME [facility]; Protocol Last Admin: 01/19/25 21:10 Dose: 80 mg Documented By: FRANCISCO J Baclofen (Baclofen 10 Mg Tablet) 10 mg PO Q8H PRN PRN Reason: Muscle Spasm Last Admin: 01/20/25 07:52 Dose: 10 mg Documented By: ROBERT Benzonatate (Benzonatate 100 Mg Capsule) 100 mg PO TID PRN PRN Reason: Cough Last Admin: 01/20/25 07:52 Dose: 100 mg Documented By: ROBERT Calcium Carbonate (Calcium Carbonate 750 Mg Tab.Chew) 750 mg PO Q4H PRN PRN Reason: Heartburn Carvedilol (Carvedilol 6.25 Mg Tablet) 6.25 mg PO BID [facility]; Protocol Last Admin: 01/20/25 07:37 Dose: 6.25 mg Documented By: ROBERT Ceftriaxone Sodium (Ceftriaxone Sodium 1 Gm Vial) 1 gm IVPUSH Q24H [facility] Last Admin: 01/19/25 21:09 Dose: 1 gm Documented By: FRANCISCO J Dextrose (Dextrose 50 % 25 Gm/50 Ml Syringe) 25 gm IVPUSH Q15M PRN; Protocol PRN Reason: per Hypoglycemia Standing Ord. Docusate Sodium (Docusate Sodium 100 Mg Capsule) 100 mg PO BEDTIME [facility] Last Admin: 01/19/25 21:10 Dose: 100 mg Documented By: FRANCISCO J Doxycycline Monohydrate (Doxycycline Monohydrate 100 Mg Capsule) 100 mg PO Q12H [facility] Last Admin: 01/20/25 09:06 Dose: 100 mg Documented By: ROBERT Empagliflozin (Empagliflozin 10 Mg Tablet) 10 mg PO DAILY [facility] Last Admin: 01/20/25 07:38 Dose: 10 mg Documented By: ROBERT Enoxaparin Sodium (Enoxaparin Sodium 40 Mg/0.4 Ml Syringe) 40 mg SUBCUT Q24H [facility] Last Admin: 01/19/25 21:10 Dose: 40 mg Documented By: FRANCISCO J Famotidine (Famotidine 20 Mg Tablet) 20 mg PO DAILY [facility] Last Admin: 01/20/25 07:38 Dose: 20 mg Documented By: ROBERT Glucose (Glucose Gel 15 Gm Gel..Gram.) 15 gm PO Q15M PRN; Protocol PRN Reason: per Hypoglycemia Standing Ord. Guaifenesin (Guaifenesin La 600 Mg Tab.Er.12h) 600 mg PO BID [facility] Last Admin: 01/20/25 07:37 Dose: 600 mg Documented By: ROBERT Insulin Glargine (Insulin Glargine,Hum.Rec.Anlog 100 Unit/Ml 10 Ml Vial) 35 unit SUBCUT BID [facility] Last Admin: 01/20/25 07:50 Dose: 35 unit Documented By: ROBERT Insulin Human Lispro (Insulin Lispro 100 Unit/Ml 3 Ml Vial) 0 unit SUBCUT QIDACHS [facility]; Protocol Last Admin: 01/20/25 11:35 Dose: 8 unit Documented By: ROBERT Levothyroxine Sodium (Levothyroxine Sodium 112 Mcg Tablet) 112 mcg PO DAILY@0600 [facility] Last Admin: 01/20/25 05:07 Dose: 112 mcg Documented By: FRANCISCO J Loratadine (Loratadine 10 Mg Tablet) 10 mg PO DAILY PRN PRN Reason: allergies Magnesium Hydroxide (Milk Of Magnesia 30 Ml Oral.Susp) 30 ml PO BID PRN PRN Reason: Constipation Melatonin (Melatonin 3 Mg Tablet) 6 mg PO BEDTIME PRN PRN Reason: Insomnia Methylprednisolone Sodium Succinate (Methylprednisolone Sod Succ 40 Mg/Ml Vial) 40 mg IVPUSH Q8H [facility] Last Admin: 01/20/25 07:36 Dose: 40 mg Documented By: ROBERT Montelukast Sodium (Montelukast Sodium 10 Mg Tablet) 10 mg PO BEDTIME [facility] Last Admin: 01/19/25 21:10 Dose: 10 mg Documented By: FRANCISCO J Nicotine (Nicotine 21 Mg Patch.Td24) 21 mg TRANSDERMA DAILY [facility] Last Admin: 01/20/25 07:33 Dose: 21 mg Documented By: ROBERT Pt Owned Med ( Dulaglutide 1.5mg/0. 5ml) 1 each SUBCUT We [facility] Last Admin: 01/18/25 11:55 Dose: 1 each Documented By: BELSITC Omeprazole (Omeprazole 20 Mg Capsule.) 20 mg PO BID@1630 [facility] Last Admin: 01/19/25 15:50 Dose: 20 mg Documented By: ROBERT Oxycodone HCl (Oxycodone Hcl Immed Release 5 Mg Tablet) 5 mg PO Q6H PRN PRN Reason: Pain, Moderate(Pain Scale 4-6) Last Admin: 01/20/25 07:52 Dose: 5 mg Documented By: ROBERT Pregabalin (Pregabalin 100 Mg Capsule) 100 mg PO DAILY [facility] Last Admin: 01/20/25 07:38 Dose: 100 mg Documented By: ROBERT Pregabalin (Pregabalin 150 Mg Capsule) 150 mg PO BEDTIME [facility] Last Admin: 01/19/25 21:10 Dose: 150 mg Documented By: FRANCISCO J Pyridoxine HCl (Pyridoxine Hcl (Vitamin B6) 50 Mg Tablet) 50 mg PO BEDTIME [facility] Last Admin: 01/19/25 21:10 Dose: 50 mg Documented By: FRANCISCO J Senna (Sennosides 8.6 Mg Tablet) 8.6 mg PO BID [facility] Last Admin: 01/20/25 07:37 Dose: 8.6 mg Documented By: ROBERT Sodium Chloride (0.9 % Sodium Chloride Flush 3 Ml Syringe) 3 ml IVFLUSH QSHIFT [facility] Last Admin: 01/20/25 14:32 Dose: 3 ml Documented By: ROBERT Sodium Chloride (Sodium Chloride 0.65 % Nasal 44 Ml Sprbtl) 1 spray NOSTRIL-B Q1H PRN PRN Reason: Nasal Congestion Labs 01/17/25 04:05 01/17/25 04:05 Labs: Laboratory Results - last 24 hr 01/19/25 01/19/25 01/20/25 16:35 19:06 07:27 POC Glucose 178 H 262 H 205 H 01/20/25 11:18 POC Glucose 327 H Assessment and Plan (1) COPD (chronic obstructive pulmonary disease): Status: Acute Plan this is a 64-year-old female with a past medical history of HTN, HLD, asthma/COPD, hypothyroidism, cardiomyopathy, CAD, diabetes, tobacco dependence, pulmonary nodules, irritable bowel syndrome, MCKAY presented to the hospital today with a chief complaint of shortness of breath. Noted to be in acute COPD exacerbation. Acute hypoxic respiratory failure secondary to pneumonia and COPD exacerbation Acute COPD exacerbation failed outpatient therapy. still wheezing recent CT chest showed no evidence of PE but showed pneumonia continue Scheduled DuoNebs, IV Solu-Medrol - will continue to wean Empirically covered with ceftriaxone and doxycycline Diabetes mellitus type 2 Sliding scale, ADA diet, Lantus Coronary artery disease Continue aspirin, statin, beta gil Heart failure with preserved ejection fraction No exacerbation Continue Jardiance Lumbar spondylosis Chronic back pain Continue oxycodone Obstructive sleep apnea CPAP at bedtime Hypothyroidism Continue levothyroxine GERD Continue PPI Tobacco dependence last smoked 3 days ago NRT, patch 21mg smoking cessation advised DVT prophylaxis: Lovenox Code status: Full code Patient is still wheezing and short of breath with ambulation, continues to require IV steroids and scheduled DuoNebs Quality Stroke Does the patient have a stroke diagnosis?: No VTE Prior VTE?: No VTE Risk Level:: Medical - moderate - high VTE Device Contraindication: Treatment Not Indicated VTE Drug Contraindication: N/A - Med Ordered
[2025-01-20 16:27] LABS: Glucose, Whole Blood 196 mg/dL (60-115)
[2025-01-20 19:50] LABS: Glucose, Whole Blood 247 mg/dL (60-115)
[2025-01-20] MEDS: Aspirin Enteric Coated 81 MG TABLET.DR PO (20:38)
[2025-01-21] VITALS (8 sets, daily range): BP systolic 127–154; BP diastolic 71–97; PULSE 72–89; RESP 16–20; TEMP 36.4–36.7; O2SAT 92–95
[2025-01-21] MEDS: Albuterol/Iprat 2.5/0.5MG 3 ML AMPUL.NEB INHALE ×5 (01:35→19:10)
[2025-01-21 07:21] LABS: Glucose, Whole Blood 144 mg/dL (60-115)
--- NOTE | 2025-01-21 09:04 | P.PNIM_ITS ---
Subjective Subjective Date of Service: 01/21/25 Interval History: seen and examined this morning follow up for copd no overnight events Still with wheezing Review of Systems Review of Systems: Yes all other systems are reviewed and are negative Constitutional Constitutional: Denies chills and Denies fever(s) Physical Exam 2 Exam: Exam: Appearing in no acute distress lung sounds are clear to auscultation heart regular rate rhythm, clear S1, S2 positive bowel sounds, abdomen is soft, nontender neuro patient is alert x3, no focal deficits Vital Signs: Vital Signs: Last Vital Signs Temp 98 F 01/21/25 07:11 Pulse 83 01/21/25 07:40 Resp 16 01/21/25 07:40 BP 154/89 H 01/21/25 07:11 Pulse Ox 92 01/21/25 07:11 O2 Del Method Nasal Cannula 01/21/25 07:11 O2 Flow Rate 2 01/21/25 07:11 BMI result Body Mass Index 27.9 Objective Data Active Medications Acetaminophen (Acetaminophen 325 Mg Tablet) 650 mg PO Q6H PRN PRN Reason: Pain, Mild 1-3,fever,headache Albuterol/Ipratropium (Albuterol/Iprat 2.5/0.5mg 3 Ml Ampul.Neb) 3 ml INHALE Q4H PRN PRN Reason: Shortness of Breath/Wheezing Last Admin: 01/21/25 07:30 Dose: 3 ml Documented By: CAROLINE Albuterol/Ipratropium (Albuterol/Iprat 2.5/0.5mg 3 Ml Ampul.Neb) 3 ml INHALE Q6H SOM Last Admin: 01/21/25 07:30 Dose: 3 ml Documented By: CAROLINE Allopurinol (Allopurinol 100 Mg Tablet) 100 mg PO DAILY [facility] Last Admin: 01/20/25 07:38 Dose: 100 mg Documented By: ROBERT Aspirin (Aspirin Enteric Coated 81 Mg Tablet.) 81 mg PO BEDTIME [facility] Last Admin: 01/20/25 20:38 Dose: 81 mg Documented By: JAZZ Atorvastatin Calcium (Atorvastatin Calcium 80 Mg Tablet) 80 mg PO BEDTIME [facility]; Protocol Last Admin: 01/20/25 20:38 Dose: 80 mg Documented By: JAZZ Baclofen (Baclofen 10 Mg Tablet) 10 mg PO Q8H PRN PRN Reason: Muscle Spasm Last Admin: 01/20/25 16:35 Dose: 10 mg Documented By: ROBERT Benzonatate (Benzonatate 100 Mg Capsule) 100 mg PO TID PRN PRN Reason: Cough Last Admin: 01/20/25 16:34 Dose: 100 mg Documented By: ROBERT Calcium Carbonate (Calcium Carbonate 750 Mg Tab.Chew) 750 mg PO Q4H PRN PRN Reason: Heartburn Carvedilol (Carvedilol 6.25 Mg Tablet) 6.25 mg PO BID [facility]; Protocol Last Admin: 01/20/25 20:38 Dose: 6.25 mg Documented By: JAZZ Ceftriaxone Sodium (Ceftriaxone Sodium 1 Gm Vial) 1 gm IVPUSH Q24H [facility] Last Admin: 01/20/25 20:37 Dose: 1 gm Documented By: JAZZ Dextrose (Dextrose 50 % 25 Gm/50 Ml Syringe) 25 gm IVPUSH Q15M PRN; Protocol PRN Reason: per Hypoglycemia Standing Ord. Docusate Sodium (Docusate Sodium 100 Mg Capsule) 100 mg PO BEDTIME [facility] Last Admin: 01/20/25 20:38 Dose: 100 mg Documented By: JAZZ Doxycycline Monohydrate (Doxycycline Monohydrate 100 Mg Capsule) 100 mg PO Q12H [facility] Last Admin: 01/20/25 20:38 Dose: 100 mg Documented By: JAZZ Empagliflozin (Empagliflozin 10 Mg Tablet) 10 mg PO DAILY [facility] Last Admin: 01/20/25 07:38 Dose: 10 mg Documented By: ROBERT Enoxaparin Sodium (Enoxaparin Sodium 40 Mg/0.4 Ml Syringe) 40 mg SUBCUT Q24H [facility] Last Admin: 01/20/25 20:37 Dose: 40 mg Documented By: JAZZ Famotidine (Famotidine 20 Mg Tablet) 20 mg PO DAILY [facility] Last Admin: 01/20/25 07:38 Dose: 20 mg Documented By: ROBERT Glucose (Glucose Gel 15 Gm Gel..Gram.) 15 gm PO Q15M PRN; Protocol PRN Reason: per Hypoglycemia Standing Ord. Guaifenesin (Guaifenesin La 600 Mg Tab.Er.12h) 600 mg PO BID [facility] Last Admin: 01/20/25 20:38 Dose: 600 mg Documented By: JAZZ Insulin Glargine (Insulin Glargine,Hum.Rec.Anlog 100 Unit/Ml 10 Ml Vial) 35 unit SUBCUT BID [facility] Last Admin: 01/20/25 20:36 Dose: 35 unit Documented By: JAZZ Insulin Human Lispro (Insulin Lispro 100 Unit/Ml 3 Ml Vial) 0 unit SUBCUT QIDACHS [facility]; Protocol Last Admin: 01/21/25 07:29 Dose: Not Given Documented By: MAEGAN Non-Admin Reason: No Insulin Coverage Levothyroxine Sodium (Levothyroxine Sodium 112 Mcg Tablet) 112 mcg PO DAILY@0600 [facility] Last Admin: 01/21/25 05:35 Dose: 112 mcg Documented By: JAZZ Loratadine (Loratadine 10 Mg Tablet) 10 mg PO DAILY PRN PRN Reason: allergies Magnesium Hydroxide (Milk Of Magnesia 30 Ml Oral.Susp) 30 ml PO BID PRN PRN Reason: Constipation Last Admin: 01/20/25 20:53 Dose: 30 ml Documented By: JAZZ Melatonin (Melatonin 3 Mg Tablet) 6 mg PO BEDTIME PRN PRN Reason: Insomnia Methylprednisolone Sodium Succinate (Methylprednisolone Sod Succ 40 Mg/Ml Vial) 40 mg IVPUSH Q12H [facility] Last Admin: 01/20/25 20:37 Dose: 40 mg Documented By: JAZZ Montelukast Sodium (Montelukast Sodium 10 Mg Tablet) 10 mg PO BEDTIME [facility] Last Admin: 01/20/25 20:38 Dose: 10 mg Documented By: JAZZ Nicotine (Nicotine 21 Mg Patch.Td24) 21 mg TRANSDERMA DAILY [facility] Last Admin: 01/20/25 07:33 Dose: 21 mg Documented By: ROBERT Pt Owned Med ( Dulaglutide 1.5mg/0. 5ml) 1 each SUBCUT We [facility] Last Admin: 01/18/25 11:55 Dose: 1 each Documented By: BELSITC Omeprazole (Omeprazole 20 Mg Capsule.) 20 mg PO BID@1630 [facility] Last Admin: 01/20/25 16:34 Dose: 20 mg Documented By: ROBERT Oxycodone HCl (Oxycodone Hcl Immed Release 5 Mg Tablet) 5 mg PO Q6H PRN PRN Reason: Pain, Moderate(Pain Scale 4-6) Last Admin: 01/20/25 22:29 Dose: 5 mg Documented By: JAZZ Pregabalin (Pregabalin 100 Mg Capsule) 100 mg PO DAILY [facility] Last Admin: 01/20/25 07:38 Dose: 100 mg Documented By: ROBERT Pregabalin (Pregabalin 150 Mg Capsule) 150 mg PO BEDTIME [facility] Last Admin: 01/20/25 20:38 Dose: 150 mg Documented By: JAZZ Pyridoxine HCl (Pyridoxine Hcl (Vitamin B6) 50 Mg Tablet) 50 mg PO BEDTIME [facility] Last Admin: 01/20/25 20:38 Dose: 50 mg Documented By: JAZZ Senna (Sennosides 8.6 Mg Tablet) 8.6 mg PO BID [facility] Last Admin: 01/20/25 20:39 Dose: 8.6 mg Documented By: JAZZ Sodium Chloride (0.9 % Sodium Chloride Flush 3 Ml Syringe) 3 ml IVFLUSH QSHIFT [facility] Last Admin: 01/20/25 20:37 Dose: 3 ml Documented By: JAZZ Sodium Chloride (Sodium Chloride 0.65 % Nasal 44 Ml Sprbtl) 1 spray NOSTRIL-B Q1H PRN PRN Reason: Nasal Congestion Labs 01/17/25 04:05 01/17/25 04:05 Labs: Laboratory Results - last 24 hr 01/20/25 01/20/25 01/20/25 11:18 16:20 19:47 POC Glucose 327 H 196 H 247 H 01/21/25 07:12 POC Glucose 144 H Assessment and Plan (1) COPD (chronic obstructive pulmonary disease): Status: Acute Plan 64-year-old female with a past medical history of HTN, HLD, asthma/COPD, hypothyroidism, cardiomyopathy, CAD, diabetes, tobacco dependence, pulmonary nodules, irritable bowel syndrome, MCKAY presented to the hospital today with a chief complaint of shortness of breath. Noted to be in acute COPD exacerbation. Acute hypoxic respiratory failure secondary to pneumonia and COPD exacerbation Acute COPD exacerbation failed outpatient therapy. still wheezing recent CT chest showed no evidence of PE but showed pneumonia continue Scheduled DuoNebs, IV Solu-Medrol - will continue to wean continue Empirically covered with ceftriaxone and doxycycline Diabetes mellitus type 2 Sliding scale, ADA diet, Lantus Coronary artery disease Continue aspirin, statin, beta gil Heart failure with preserved ejection fraction No exacerbation Continue Jardiance Lumbar spondylosis Chronic back pain Continue oxycodone Obstructive sleep apnea CPAP at bedtime Hypothyroidism Continue levothyroxine GERD Continue PPI Tobacco dependence last smoked 3 days ago NRT, patch 21mg smoking cessation advised DVT prophylaxis: Lovenox Code status: Full code Patient is still wheezing and short of breath with ambulation, continues to require IV steroids and scheduled DuoNebs Quality Stroke Does the patient have a stroke diagnosis?: No VTE Prior VTE?: No VTE Risk Level:: Medical - moderate - high VTE Device Contraindication: Treatment Not Indicated VTE Drug Contraindication: N/A - Med Ordered
[2025-01-21] MEDS: Nicotine 21 MG PATCH.TD24 TRANSDERMA (09:20)
[2025-01-21] MEDS: 0.9 % Sodium Chloride Flush 3 ML SYRINGE IVFLUSH ×3 (09:20→20:03)
[2025-01-21] MEDS: Insulin Glargine,Hum.rec.anlog 100 UNIT/ML 10 ML VIAL 35 UNIT SUBCUT ×2 (09:21→20:45)
[2025-01-21] MEDS: guaiFENesin LA 600 MG TAB.ER.12H PO ×2 (09:22→20:02)
[2025-01-21] MEDS: oxyCODONE HCl Immed Release 5 MG TABLET PO ×2 (09:26→20:02)
[2025-01-21 11:08] LABS: Glucose, Whole Blood 407 mg/dL (60-115)
[2025-01-21 17:01] LABS: Glucose, Whole Blood 217 mg/dL (60-115)
[2025-01-21] MEDS: Milk of Magnesia 30 ML ORAL.SUSP PO (20:02)
[2025-01-21] MEDS: Aspirin Enteric Coated 81 MG TABLET.DR PO (20:02)
[2025-01-21 20:40] LABS: Glucose, Whole Blood 186 mg/dL (60-115)
[2025-01-22] VITALS (9 sets, daily range): BP systolic 126–137; BP diastolic 65–79; PULSE 68–97; RESP 17–20; TEMP 36–36.7; O2SAT 91–96
[2025-01-22] MEDS: Albuterol/Iprat 2.5/0.5MG 3 ML AMPUL.NEB INHALE ×4 (01:30→20:15)
[2025-01-22] MEDS: oxyCODONE HCl Immed Release 5 MG TABLET PO ×2 (05:36→19:39)
[2025-01-22 07:20] LABS: Glucose, Whole Blood 124 mg/dL (60-115)
[2025-01-22] MEDS: Nicotine 21 MG PATCH.TD24 TRANSDERMA (08:06)
[2025-01-22] MEDS: guaiFENesin LA 600 MG TAB.ER.12H PO ×2 (08:07→19:36)
[2025-01-22] MEDS: Insulin Glargine,Hum.rec.anlog 100 UNIT/ML 10 ML VIAL 35 UNIT SUBCUT ×2 (08:07→21:41)
[2025-01-22 11:18] LABS: Glucose, Whole Blood 301 mg/dL (60-115)
--- NOTE | 2025-01-22 11:44 | HO.PM.IMPN ---
Subjective Subjective Date of Service: 01/22/25 Interval History: seen and examined this morning follow up for copd no overnight events Still with wheezing but improving Review of Systems Review of Systems: Yes all other systems are reviewed and are negative Constitutional Constitutional: Denies chills and Denies fever(s) Physical Exam Exam: Exam: Appearing in no acute distress lung sounds are clear to auscultation heart regular rate rhythm, clear S1, S2 positive bowel sounds, abdomen is soft, nontender neuro patient is alert x3, no focal deficits Vital Signs: Vital Signs: Last Vital Signs Temp 98.1 F 01/22/25 07:15 Pulse 76 01/22/25 08:31 Resp 20 01/22/25 08:31 BP 137/71 01/22/25 07:15 Pulse Ox 93 01/22/25 07:15 O2 Del Method Nasal Cannula 01/22/25 07:15 O2 Flow Rate 2 01/22/25 07:15 BMI result Body Mass Index 27.9 Objective Data Active Medications Acetaminophen (Acetaminophen 325 Mg Tablet) 650 mg PO Q6H PRN PRN Reason: Pain, Mild 1-3,fever,headache Albuterol/Ipratropium (Albuterol/Iprat 2.5/0.5mg 3 Ml Ampul.Neb) 3 ml INHALE Q4H PRN PRN Reason: Shortness of Breath/Wheezing Last Admin: 01/21/25 07:30 Dose: 3 ml Documented By: CAROLINE Albuterol/Ipratropium (Albuterol/Iprat 2.5/0.5mg 3 Ml Ampul.Neb) 3 ml INHALE Q6H SOM Last Admin: 01/22/25 08:27 Dose: 3 ml Documented By: CAROLINE Allopurinol (Allopurinol 100 Mg Tablet) 100 mg PO DAILY [facility] Last Admin: 01/22/25 08:07 Dose: 100 mg Documented By: NIKOLAS Aspirin (Aspirin Enteric Coated 81 Mg Tablet.) 81 mg PO BEDTIME [facility] Last Admin: 01/21/25 20:02 Dose: 81 mg Documented By: JAZZ Atorvastatin Calcium (Atorvastatin Calcium 80 Mg Tablet) 80 mg PO BEDTIME [facility]; Protocol Last Admin: 01/21/25 20:02 Dose: 80 mg Documented By: JAZZ Baclofen (Baclofen 10 Mg Tablet) 10 mg PO Q8H PRN PRN Reason: Muscle Spasm Last Admin: 01/21/25 20:02 Dose: 10 mg Documented By: JAZZ Benzonatate (Benzonatate 100 Mg Capsule) 100 mg PO TID PRN PRN Reason: Cough Last Admin: 01/21/25 20:02 Dose: 100 mg Documented By: JAZZ Calcium Carbonate (Calcium Carbonate 750 Mg Tab.Chew) 750 mg PO Q4H PRN PRN Reason: Heartburn Carvedilol (Carvedilol 6.25 Mg Tablet) 6.25 mg PO BID [facility]; Protocol Last Admin: 01/22/25 08:07 Dose: 6.25 mg Documented By: NIKOLAS Ceftriaxone Sodium (Ceftriaxone Sodium 1 Gm Vial) 1 gm IVPUSH Q24H [facility] Last Admin: 01/21/25 20:46 Dose: 1 gm Documented By: JAZZ Dextrose (Dextrose 50 % 25 Gm/50 Ml Syringe) 25 gm IVPUSH Q15M PRN; Protocol PRN Reason: per Hypoglycemia Standing Ord. Docusate Sodium (Docusate Sodium 100 Mg Capsule) 100 mg PO BEDTIME [facility] Last Admin: 01/21/25 20:02 Dose: 100 mg Documented By: JAZZ Doxycycline Monohydrate (Doxycycline Monohydrate 100 Mg Capsule) 100 mg PO Q12H [facility] Last Admin: 01/22/25 10:11 Dose: 100 mg Documented By: NIKOLAS Empagliflozin (Empagliflozin 10 Mg Tablet) 10 mg PO DAILY [facility] Last Admin: 01/22/25 08:07 Dose: 10 mg Documented By: NIKOLAS Enoxaparin Sodium (Enoxaparin Sodium 40 Mg/0.4 Ml Syringe) 40 mg SUBCUT Q24H [facility] Last Admin: 01/21/25 20:01 Dose: 40 mg Documented By: JAZZ Famotidine (Famotidine 20 Mg Tablet) 20 mg PO DAILY [facility] Last Admin: 01/22/25 08:07 Dose: 20 mg Documented By: NIKOLAS Glucose (Glucose Gel 15 Gm Gel..Gram.) 15 gm PO Q15M PRN; Protocol PRN Reason: per Hypoglycemia Standing Ord. Guaifenesin (Guaifenesin La 600 Mg Tab.Er.12h) 600 mg PO BID [facility] Last Admin: 01/22/25 08:07 Dose: 600 mg Documented By: NIKOLAS Insulin Glargine (Insulin Glargine,Hum.Rec.Anlog 100 Unit/Ml 10 Ml Vial) 35 unit SUBCUT BID [facility] Last Admin: 01/22/25 08:07 Dose: 35 unit Documented By: NIKOLAS Insulin Human Lispro (Insulin Lispro 100 Unit/Ml 3 Ml Vial) 0 unit SUBCUT QIDACHS [facility]; Protocol Last Admin: 01/22/25 11:32 Dose: 8 unit Documented By: NIKOLAS Levothyroxine Sodium (Levothyroxine Sodium 112 Mcg Tablet) 112 mcg PO DAILY@0600 [facility] Last Admin: 01/22/25 05:33 Dose: 112 mcg Documented By: JAZZ Loratadine (Loratadine 10 Mg Tablet) 10 mg PO DAILY PRN PRN Reason: allergies Magnesium Hydroxide (Milk Of Magnesia 30 Ml Oral.Susp) 30 ml PO BID PRN PRN Reason: Constipation Last Admin: 01/21/25 20:02 Dose: 30 ml Documented By: JAZZ Melatonin (Melatonin 3 Mg Tablet) 6 mg PO BEDTIME PRN PRN Reason: Insomnia Methylprednisolone Sodium Succinate (Methylprednisolone Sod Succ 40 Mg/Ml Vial) 40 mg IVPUSH Q12H [facility] Last Admin: 01/22/25 08:06 Dose: 40 mg Documented By: NIKOLAS Montelukast Sodium (Montelukast Sodium 10 Mg Tablet) 10 mg PO BEDTIME [facility] Last Admin: 01/21/25 20:02 Dose: 10 mg Documented By: JAZZ Nicotine (Nicotine 21 Mg Patch.Td24) 21 mg TRANSDERMA DAILY [facility] Last Admin: 01/22/25 08:06 Dose: 21 mg Documented By: NIKOLAS Pt Owned Med ( Dulaglutide 1.5mg/0. 5ml) 1 each SUBCUT We [facility] Last Admin: 01/18/25 11:55 Dose: 1 each Documented By: KEYSHAWN Omeprazole (Omeprazole 20 Mg Capsule.) 20 mg PO BID@1630 [facility] Last Admin: 01/21/25 17:05 Dose: 20 mg Documented By: MAEGAN Oxycodone HCl (Oxycodone Hcl Immed Release 5 Mg Tablet) 5 mg PO Q6H PRN PRN Reason: Pain, Moderate(Pain Scale 4-6) Last Admin: 01/22/25 05:36 Dose: 5 mg Documented By: JAZZ Pregabalin (Pregabalin 100 Mg Capsule) 100 mg PO DAILY [facility] Last Admin: 01/22/25 08:07 Dose: 100 mg Documented By: NIKOLAS Pregabalin (Pregabalin 150 Mg Capsule) 150 mg PO BEDTIME [facility] Last Admin: 01/21/25 20:02 Dose: 150 mg Documented By: JAZZ Pyridoxine HCl (Pyridoxine Hcl (Vitamin B6) 50 Mg Tablet) 50 mg PO BEDTIME [facility] Last Admin: 01/21/25 20:02 Dose: 50 mg Documented By: JAZZ Senna (Sennosides 8.6 Mg Tablet) 8.6 mg PO BID [facility] Last Admin: 01/22/25 08:07 Dose: 8.6 mg Documented By: NIKOLAS Sodium Chloride (0.9 % Sodium Chloride Flush 3 Ml Syringe) 3 ml IVFLUSH QSHIFT [facility] Last Admin: 01/22/25 09:27 Dose: Not Given Documented By: NIKOLAS Non-Admin Reason: Previously Administered Sodium Chloride (Sodium Chloride 0.65 % Nasal 44 Ml Sprbtl) 1 spray NOSTRIL-B Q1H PRN PRN Reason: Nasal Congestion Labs 01/17/25 04:05 01/17/25 04:05 Labs: Laboratory Results - last 24 hr 01/21/25 01/21/25 01/22/25 16:56 20:18 07:14 POC Glucose 217 H 186 H 124 H 01/22/25 11:09 POC Glucose 301 H Microbiology Microbiology Results: Microbiology 01/16/25 19:42 Blood Culture - Final Blood - Venous No growth after 5 days. 01/16/25 19:23 Blood Culture - Final Blood - Venous No growth after 5 days. Assessment and Plan (1) COPD (chronic obstructive pulmonary disease): Status: Acute Plan 64-year-old female with a past medical history of HTN, HLD, asthma/COPD, hypothyroidism, cardiomyopathy, CAD, diabetes, tobacco dependence, pulmonary nodules, irritable bowel syndrome, MCKAY presented to the hospital today with a chief complaint of shortness of breath. Noted to be in acute COPD exacerbation. Acute hypoxic respiratory failure secondary to pneumonia and COPD exacerbation failed outpatient therapy. still wheezing but less recent CT chest showed no evidence of PE but showed pneumonia continue Scheduled DuoNebs, IV Solu-Medrol transitioned to po prednisone tomorrow s/p 6 days of ceftriaxone and doxycycline wean of oxygen today Diabetes mellitus type 2 Sliding scale, ADA diet, Lantus Coronary artery disease Continue aspirin, statin, beta gil Heart failure with preserved ejection fraction No exacerbation Continue Jardiance Lumbar spondylosis Chronic back pain Continue oxycodone Obstructive sleep apnea CPAP at bedtime Hypothyroidism Continue levothyroxine GERD Continue PPI Tobacco dependence NRT, patch 21mg smoking cessation advised DVT prophylaxis: Lovenox Code status: Full code Patient is still wheezing and short of breath with ambulation, continues to require IV steroids and scheduled DuoNebs Quality Stroke Does the patient have a stroke diagnosis?: No VTE Prior VTE?: No VTE Risk Level:: Medical - moderate - high VTE Device Contraindication: Treatment Not Indicated VTE Drug Contraindication: N/A - Med Ordered
[2025-01-22] MEDS: Milk of Magnesia 30 ML ORAL.SUSP PO (13:23)
[2025-01-22 16:34] LABS: Glucose, Whole Blood 170 mg/dL (60-115)
[2025-01-22] MEDS: 0.9 % Sodium Chloride Flush 3 ML SYRINGE IVFLUSH ×2 (16:42→22:03)
[2025-01-22] MEDS: Aspirin Enteric Coated 81 MG TABLET.DR PO (19:37)
[2025-01-22 20:44] LABS: Glucose, Whole Blood 157 mg/dL (60-115)
[2025-01-23 02:32] VITALS: PULSE 84; RESP 18; O2SAT 84
[2025-01-23] MEDS: Albuterol/Iprat 2.5/0.5MG 3 ML AMPUL.NEB INHALE ×2 (02:32→07:54)
[2025-01-23 03:45] VITALS: BP 126/73; PULSE 73; RESP 18; TEMP 35.8; O2SAT 94
[2025-01-23 07:16] LABS: Glucose, Whole Blood 96 mg/dL (60-115)
[2025-01-23 07:19] VITALS: BP 128/62; PULSE 69; RESP 16; TEMP 36.1; O2SAT 92
--- NOTE | 2025-01-23 07:41 | P.DS_ITS ---
DS: Providers Provider Date of Service: 01/23/25 Date of admission: 01/16/25 20:38 Date of discharge: 01/23/25 Primary care physician: Bobby David MD DS: Diagnosis Discharge Diagnosis (1) COPD (chronic obstructive pulmonary disease): Status: Acute DS: Summary Hospital Course Hospital Course: History and physical as per admitting provider. 64-year-old female with a past medical history of HTN, HLD, asthma/COPD, hypothyroidism, cardiomyopathy, CAD, diabetes, tobacco dependence, pulmonary nodules, irritable bowel syndrome, MCKAY presented to the hospital today with a chief complaint of shortness of breath. Patient reported that she has been having shortness of breath the past couple of weeks. Initially present to the ER about week ago and was given prednisone and doxycycline but continued to have shortness of breath and presented to the ER. Reports having cough. Denies any fevers. Denies any sick contacts. Denies any chest pain or palpitations. Review of all other systems is negative except mentioned above ER course: Per ER physician, patient noted to be wheezing bilaterally; mildly hypoxic; placed on supplemental oxygen; patient had CT chest done 5 days ago which showed no evidence of PE but not have findings concerning for pneumonia. Patient also already received doxycycline as outpatient. Given nebulizations and steroids. Given antibiotics. 64-year-old woman with a long history of COPD treated for acute hypoxic respiratory failure secondary to COPD exacerbation and community-acquired pneumonia. She had failed I patient therapy prior to that. She was treated with scheduled Solu-Medrol, DuoNebs, ceftriaxone doxycycline she completed 6 days. She was weaned off oxygen and she is on room air at this point. She will complete a short prednisone taper and then continue to her usual dose of 5 mg daily. Diabetes mellitus type 2. Continue home medications Coronary artery disease. Continue aspirin, statin and beta-gil Heart failure with preserved ejection fraction. No exacerbation during hospit alization. Continue Jardiance Lumbar spondylosis with chronic pain. Continue pain medications Obstructive sleep apnea. Does not use CPAP at bedtime Hypothyroidism. Continue levothyroxine GERD. Continue PPI Tobacco dependence. Treated with nicotine replacement therapy. Discussed the importance of smoking cessation and patient is motivated to do so. Time Attestation Discharge Coordination Time (in mins): 45 Quality: Safe Use of Opioids Does Pt have an Active Cancer Diagnosis on the Problem List?: No Quality: Stroke Does the patient have a stroke diagnosis?: No Physical Exam Exam: Exam: Appearing in no acute distress head is normocephalic atraumatic eyes pupils are PERRLA sclera is anicteric mouth throat mucous membranes are intact and moist neck is supple no lymphadenopathy, no JVD noted lung sounds are clear to auscultation heart regular rate rhythm, clear S1, S2 positive bowel sounds, abdomen is soft, nontender neuro patient is alert x3, no focal deficits Vital Signs: Vital Signs: Last Vital Signs Temp 96.9 F 01/23/25 07:19 Pulse 69 01/23/25 07:19 Resp 16 01/23/25 07:19 BP 128/62 01/23/25 07:19 Pulse Ox 92 01/23/25 07:19 O2 Del Method Room Air 01/23/25 07:19 O2 Flow Rate 2 01/22/25 07:15 BMI result Body Mass Index 27.9 DS: Data Data Completed and Pending Labs on day of discharge: Laboratory Results - last 24 hr 01/22/25 01/22/25 01/22/25 11:09 16:30 20:40 POC Glucose 301 H 170 H 157 H 01/23/25 07:12 POC Glucose 96 Discharge Plan Discharge Anticipated Discharge Date/Time: 01/23/25 07:35 Patient Disposition: Home, Self-Care Discharge Diagnosis: Respiratory failure secondary to COPD exacerbation Community-acquired pneumonia Referrals: Name,MD Bobby [Primary Care Provider, Internal Medicine] - 1 Week Discharge Medications: New prednisone 10 mg tablet See Taper PO DIRECTED Qty: 30 0RF Taper: Prednisone 40 mg daily for 3 Days and 0 Hour 30 mg daily for 3 Days and 0 Hour 20 mg daily for 3 Days and 0 Hour 10 mg daily for 3 Days and 0 Hour Rx Instructions: see taper instructions melatonin 5 mg tablet 5 mg PO BEDTIME PRN (Reason: sleep) Qty: 15 0RF Continued albuterol sulfate [Ventolin HFA] 90 mcg/actuation HFA aerosol inhaler 2 puff inhalation Q4-6H PRN (Reason: for wheezing) Qty: 18 11RF allopurinol 100 mg tablet 100 mg PO DAILY 90 Days Qty: 90 1RF roflumilast 500 mcg tablet 500 mcg PO DAILY Qty: 30 11RF prednisone 5 mg tablet 5 mg PO DAILY Qty: 30 3RF docusate sodium 100 mg capsule 1 cap PO BEDTIME insulin aspart U-100 [Novolog FlexPen U-100 Insulin] 100 unit/mL (3 mL) insulin pen See Protocol subcut [facility] Protocol: Insulin Correction Scale Less than or equal to 110 ---- Give (units): 0 111 to 150 Give (units): 0 151 to 200 Give (units): 2 201 to 250 Give (units): 4 251 to 300 Give (units): 6 301 to 350 Give (units): 8 Greater than 350 Give (units): 10 Call MD if Blood Glucose > : 350 Combivent Respimat 20-100 mcg/actuation mist 2 puff INHALATION BID Trulicity 1.5 mg/0.5 mL pen injector 1.5 mg subcut WE@0900 fluticasone propionate 50 mcg/actuation [place],Suspension 1 spray INTRANASAL DAILY PRN (Reason: Congestion) Rx Instructions: administer into each nostril ipratropium-albuterol 0.5 mg-3 mg(2.5 mg base)/3 mL Solution For Nebulization 3 ml inhalation RQ4H WHILE AWAKE PRN (Reason: Shortness Of Breath/Wheezing) Qty: 270 0RF pregabalin 150 mg capsule 150 mg PO BEDTIME sennosides [senna] 8.6 mg Tablet 8.6 mg PO BID insulin glargine [Lantus Solostar U-100 Insulin] 100 unit/mL (3 mL) insulin pen 35 unit SUBCUT BID Rx Instructions: PER PATIENT, MAY REQUIRE HIGHER DOSES WHEN ON STEROIDS levothyroxine 112 mcg tablet 112 mcg PO DAILY@0600 pregabalin 100 mg capsule 100 mg PO DAILY ondansetron 4 mg tablet,disintegrating 4 mg PO Q8H PRN (Reason: nausea and vomiting) 4 Days Qty: 14 0RF Trelegy Ellipta 100-62.5-25 mcg blister with device 1 ea INHALATION DAILY lidocaine 5 % adhesive patch,medicated 1 patch topical DAILY PRN (Reason: Pain) Rx Instructions: leave on most painful area for up to 12 hrs pyridoxine (vitamin B6) 50 mg tablet 50 mg PO BEDTIME omeprazole 20 mg capsule,delayed release(DR/EC) 20 mg PO BID@1630 aspirin 81 mg tablet,delayed release (DR/EC) 81 mg PO BEDTIME carvedilol 6.25 mg tablet 6.25 mg PO BID atorvastatin 80 mg tablet 80 mg PO BEDTIME Protocol: Hold for SBP< HOLD for SBP < : 90 montelukast 10 mg tablet 10 mg PO BEDTIME cetirizine 10 mg tablet 10 mg PO DAILY PRN (Reason: allergies) (DME) lancets [TRUEplus Lancets] 33 gauge misc See Rx Instructions .ROUTE TID Qty: 100 Rx Instructions: As directed (DME) FreeStyle Lite Strips Strip See Rx Instructions .ROUTE TID Qty: 10 Rx Instructions: As directed oxycodone-acetaminophen 7.5-325 mg tablet 1 tab PO Q6H PRN (Reason: severe pain) (DME) nebulizers Misc See Rx Instructions .Route Rx Instructions: As directed (DME) HANK Elbow Brace Misc See Rx Instructions .Route Qty: 1 0RF Rx Instructions: As directed Jardiance 10 mg tablet 10 mg PO DAILY baclofen 10 mg tablet 10 mg PO Q8H PRN (Reason: muscle spasm) Discontinued doxycycline hyclate 100 mg tablet 100 mg PO BID Qty: 14 0RF Rx Instructions: STARTED 01/12/25 ORDERED FOR 7 DAYS Discharge Orders: Discharge Order (Routine); Ordered 01/23/25 Ordered By: Nadira White Diet: Advance to usual diet Activity on Discharge: As tolerated Stand Alone Forms: Patient Portal Discharge page Print Language: Maori Care Plan Goals: Complete course of steroids then go back to her usual dose of 5 mg daily Health Concerns: Respiratory failure secondary to COPD exacerbation Community-acquired pneumonia Plan of Treatment: Follow up with primary care provider as needed Take all medications as prescribed Assessment: See discharge summary
[2025-01-23 07:57] VITALS: PULSE 70; RESP 18
[2025-01-23 08:41] VITALS: BP 120/55; PULSE 76; RESP 16; TEMP 36.4; O2SAT 92
[2025-01-23] MEDS: guaiFENesin LA 600 MG TAB.ER.12H PO (09:10)
[2025-01-23] MEDS: 0.9 % Sodium Chloride Flush 3 ML SYRINGE IVFLUSH (09:11)
[2025-01-23] MEDS: Insulin Glargine,Hum.rec.anlog 100 UNIT/ML 10 ML VIAL 35 UNIT SUBCUT (09:11)
[2025-01-23] MEDS: Nicotine 21 MG PATCH.TD24 TRANSDERMA (09:13)
--- NOTE | 2025-01-23 09:39 | MHC.CM.PN ---
pt dcd home with resumption of aveanna
== END 2025-01-23 10:06 | disposition home health service (06) | DRG 193 ==
LOC: HO.ED 20:42 → HO.EDOVER 20:46 → HO.S3 01-17 14:02
PROVIDERS: Physician Assistant; Physician Assistant Medical; Admitting Provider Hospitalist; Emergency Provider Emergency Medicine; PCP Internal Medicine Geriatric Medicine; Visit Provider Nurse Practitioner Acute Care
DX: J18.9 Pneumonia, unspecified organism (principal); J96.01 Acute respiratory failure with hypoxia; J44.0 Chronic obstructive pulmonary disease with (acute) lower respiratory infection; I50.32 Chronic diastolic (congestive) heart failure; I42.9 Cardiomyopathy, unspecified; J44.1 Chronic obstructive pulmonary disease with (acute) exacerbation; E11.9 Type 2 diabetes mellitus without complications; I25.10 Atherosclerotic heart disease of native coronary artery without angina pectoris; E03.9 Hypothyroidism, unspecified; F17.210 Nicotine dependence, cigarettes, uncomplicated; K21.9 Gastro-esophageal reflux disease without esophagitis; M47.816 Spondylosis without myelopathy or radiculopathy, lumbar region; Z71.6 Tobacco abuse counseling; G47.33 Obstructive sleep apnea (adult) (pediatric); G89.29 Other chronic pain; Z20.822 Contact with and (suspected) exposure to COVID-19; Z79.4 Long term (current) use of insulin; Z79.52 Long term (current) use of systemic steroids; Z79.82 Long term (current) use of aspirin; Z79.890 Hormone replacement therapy; Z79.899 Other long term (current) drug therapy
CPT/HCPCS: 36415; 71046; 80053; 82947; 83605; 83690; 85025; 85027; 87040; 87502; 87635; 93005; 94640; 97162; 99285; J0696; J1650; J2919

== ENCOUNTER → 2025-01-16 19:05 | Outpatient (BNV) | payer OTHER, SELFPAY | PROVIDERS: Admitting Provider Hospitalist; Emergency Provider Emergency Medicine; PCP Internal Medicine Geriatric Medicine; Visit Provider Nuclear Medicine | DX: R06.02 Shortness of breath (principal) | CPT/HCPCS: 71046 ==

== ENCOUNTER → 2025-01-16 19:06 | Outpatient (BNV) | payer OTHER, SELFPAY | PROVIDERS: Admitting Provider Hospitalist; Emergency Provider Emergency Medicine; PCP Internal Medicine Geriatric Medicine; Visit Provider Internal Medicine Cardiovascular Disease | DX: R06.02 Shortness of breath (principal) | CPT/HCPCS: 93010 ==

== ENCOUNTER → 2025-01-16 20:38 | Outpatient (BNV) | payer OTHER, SELFPAY | PROVIDERS: Admitting Provider Hospitalist; Emergency Provider Emergency Medicine; PCP Internal Medicine Geriatric Medicine; Visit Provider Nurse Practitioner Acute Care | DX: J44.9 Chronic obstructive pulmonary disease, unspecified (principal); J44.1 Chronic obstructive pulmonary disease with (acute) exacerbation | CPT/HCPCS: 99223; 99232 ==

== ENCOUNTER 2025-01-30 10:02 | Outpatient (REF) | payer OTHER, SELFPAY ==
--- OUTSIDE RECORDS SUMMARY | 2025-01-25 08:30 | XMS_ITS | Encounter Summary ---
Author Organization [employer] Address [address] [place] [address] [place] [address] Care Team Providers Care Broadcast Operations Technician Name Role Phone Bobby David MD Primary Care Provider [phone] Reason for Referral * Medications - Closed Specialty Diagnoses / Procedures Referred By Contac t Referred To Contact Diagnoses Type 2 diabetes mellitus with other specified complication, unspecified whether longterm insulin use (HCC) Bobby David MD [address] [place] [address] Phone: tel: fax: Referral ID Status Reason Start Date Expiration Date Visits Re quested Visits Authorized [id number] Closed 1 1 Reason for Visit * Reason Comments HDF Encounter Details Date Type Department Care Team ([facility] st Contact Info) Description 01/25/2025 9:30 AM EDT Office Visit [facility] MEDICINE [address] [place] [address] [phone] Bobby David MD [address] [place] [phone] COPD exacerbation (CMS/HCC) (HCC) (Primary Dx); Type 2 diabetes mellitus with other specified complication, unspecified whether termite exterminator helper insulin use (HCC); Encounter for immunization; Encounter for vaccination Social History Tobacco Use Types Packs/Day Years [...] Date Recorded Patient Health Questionnaire-9 Score 0 01/25/2025 Patient Health Questionnaire-9 Score 0 01/25/2025 Last PHQ-9: Questionnaire Data Not on file 1 Housing Stability Answer Date Recorded What is [...] Date Recorded Patient Health Questionnaire-2 Score 0 01/25/2025 Internet Access Answer Date Recorded Internet Access [...] Sign Reading Time Taken Comments Blood Pressure 144/82 01/25/2025 9:39 AM EDT Pulse 83 01/25/2025 9:39 AM EDT Temperature 36 C (96.8 F) 01/25/2025 9:39 AM EDT Respiratory Rate 12 01/25/2025 9:39 AM EDT Oxygen Saturation 94% 01/25/2025 9:39 AM EDT Inhaled Oxygen Concentration - - Weight 73.3 kg (161 lb 9.6 oz) 01/25/2025 9:39 A M EDT Height 165.1 cm (5' 5 ) 01/25/2025 9:39 AM EDT Body Mass Index 26.89 01/25/2025 9:39 AM EDT documented in this encounter Functional Status * Over the past 2 weeks, how often have you been bothered by any of the following problems? Question Answer Date of Assessment Author Patient Health Questionnaire-2 Score 0 01/25/2025 10:50 AM EDT Fawad Berrios MA * Little interest or pleasure in doing things Answer Date of Assessment Author Not at all 01/25/2025 10:50 AM EDT Cem Berrios MA * Feeling down, depressed, or hopeless Answer Date of Assessment Author Not at all 01/25/2025 10:50 AM EDGART Cem Berrios MA * Trouble falling or staying asleep, or sleeping too much Answer Date of Assessment Author Not at all 01/25/2025 10:50 AM EDGART Cem Berrios MA * Feeling tired or having little energy Answer Date of Assessment Author Not at all 01/25/2025 10:50 AM EDGART Cem Berrios MA * Poor appetite or overeating Answer Date of Assessment Author Not at all 01/25/2025 10:50 AM Cem Durant MA * Feeling bad about yourself - or that you are a failure or have let yourself or your family down Answer Date of Assessment Author Not at all 01/25/2025 10:50 AM Cem Durant MA * Trouble concentrating on things, such as reading the newspaper or watching television Answer Date of Assessment Author Not at all 01/25/2025 10:50 AM EDGART Cem Berrios MA * Moving or speaking so slowly that other people could have noticed? Or the opposite - being so fidgety or restless that you have been moving around a lot more than usual. Answer Date of Assessment Author Not at all 01/25/2025 10:50 AM EDT Cem Berrios MA * Thoughts that you would be better off or hurting yourself in some way Answer Date of Assessment Author Not at all 01/25/2025 10:50 AM EDGART Cem Berrios MA * Patient Health Questionnaire-9 Score Answer Date of Assessment Author 0 01/25/2025 10:50 AM EDT Cem Berrios MA * Over the last 2 weeks, how often have you been bothered by any of the following problems? Question Answer Date of Assessment Author Feeling nervous, anxious, or on edge 0 01/25/2025 10:50 AM EDGART Dennis Berrios MA Not being able to stop or control worrying 0 01/25/2025 10:50 AM Dennis Durant MA Worrying too much about different things 0 01/25/2025 10:50 AM EDDennis Fu MA Trouble relaxing 0 01/25/2025 10:50 AM Cem Durant MA Being so restless that it is hard to sit still 0 01/25/2025 10:50 AM Dennis Durant MA Becoming easily annoyed or irritable 0 01/25/2025 10:50 AM Dennis Durant MA Feeling afraid as if something awful might happen 0 01/25/2025 10:50 AM EDT Cem Silver MA MOE-7 Total Score 0 01/25/2025 10:50 AM Cem Durant MA documented as of this encounter Progress Notes * Bobby David MD - 01/25/2025 9:30 AM EDT Subjective Patient ID: Marita Lawrence is a 64 y.o. female who presents for HDF. Patient comes for a posthospitalization visit. She is accompanied by her . She continues to have cough, wheezing and mild shortness of breath but she feels better compared to how she felt prior to her recent hospitalization. She is on a tapering course of prednisone for total of 12 days, sheis using her inhalers as prescribed and she and her are cutting down on her smoking and sheis congratulated. She requested a refill of Mucinex and I agreed. She does not bring her glucose meter but her blood sugar is suboptimal based on hemoglobin A1c and this is to be expected given recent use of steroids. She has been using Trulicity 1.5 mg once a weekwithout GI side effects. Today I will increased her dose of Trulicity to 3 mg once a week. Discharge summary as written below Hospital Course 01/16-01/23 at [facility] 64-year-old female with a past medical history of HTN, HLD, asthma/COPD, hypothyroidism, cardiomyopathy, CAD, diabetes, tobacco dependence, pulmonary nodules, irritable bowel syndrome, MCKAY presented to the hospital today with a chief complaint of shortness of breath. Patient reported that she has been having shortness of breath the past couple of weeks. Initially present to the ER about week ago and was given prednisone and doxycycline but continued to have shortness of breath and presented to the ER again Reports having cough. Denies any fevers. Denies any sick contacts. Denies any chest pain or palpitations. Review of all other systems is negative except mentioned above ER course: Per ER physician, patient noted to be wheezing bilaterally; mildly hypoxic; placed on supplemental oxygen; patient had CT chest done 5 days ago which showed no evidence of PE but findings concerning for pneumonia. Patient also already received doxycycline as outpatient. Given nebulizations and steroids. Given antibiotics. 64-year-old woman with a long history of COPD treated for acute hypoxic respiratory failure secondary to COPD exacerbation and community-acquired pneumonia. She had failed outpatient therapy . She was treated with scheduled Solu-Medrol, DuoNebs, ceftriaxone and doxycycline she completed 6 days. She was weaned off oxygen and she is on room air at this point. She will complete a short prednisone taper and then continue to her usual dose of 5 mg daily. Diabetes mellitus type 2. Continue home medications Coronary artery disease. Continue aspirin, statin and beta-gil Heart failure with preserved ejection fraction. No exacerbation during hospitalization. Continue Jardiance Lumbar spondylosis with chronic pain. Continue pain medications Obstructive sleep apnea. Does not use CPAP at bedtime Hypothyroidism. Continue levothyroxine GERD. Continue PPI Review of Systems Constitutional: Negative for chills and fever. HENT: Negative for sore throat. Respiratory: Positive for cough, shortness of breath and wheezing. Cardiovascular: Negative for chest pain, palpitations and leg swelling. Gastrointestinal: Negative for abdominal pain. Objective Vitals: 01/25/25 0939 BP: (!) 144/82 BP Location: Left arm Patient Position: Sitting BP Cuff Size: Adult Pulse: 83 Resp: 12 Temp: 96.8 ??F (36 ??C) TempSrc: Temporal SpO2: 94% Weight: 161 lb 9.6 oz (73.3 kg) Height: 5' 5 (1.651 m) Physical Exam Constitutional: General: She is not in acute distress. Appearance: She is not toxic-appearing. Cardiovascular: Rate and Rhythm: Normal rate and regular rhythm. Pulmonary: Effort: No respiratory distress. Breath sounds: Wheezing present. Musculoskeletal: Right lower leg: No edema. Left lower leg: No edema. CTA Chest PE Protocal Status: Final result Study Result Narrative & Impression [place] [id number] [address] Scan Report Signed Patient: Marita Zapata MR#: [id number] : 1960 Acct:[id number] Age/Sex: 64 / F ADM Date: 01/11/25 Loc: .ED Attending Dr: Ordering Physician: Rebecca Terry DO Date of Service: 01/11/25 Procedure(s): CT angio chest PE protocol Accession Number(s): [id number] cc: Rebecca Terry DO; Name,Bobby GRADY Report Number: [id number]: Total DLP = 316.00 mGy-cm Reason for [...] by: Kely Bañuelos MD 01/11/2025 11:09 AM Assessment/Plan Diagnoses and all orders for this visit: COPD exacerbation (CMS/HCC) ([facility]) Comments: She seems to be improving slowly. Continue current inhalers, quit smoking, continue tapering courseof prednisone, flu and COVID vaccines today. Keep upcoming appointment with pulmonary Type 2 diabetes mellitus with other specified complication, unspecified whether termite exterminator helper insulin use ([facility]) Comments: Continue current dose of insulin. Increase Trulicity to 3 mg once a week. Avoid sweets and soda. She is encouraged to call if she has any GI side effects on the higher dose of Trulicity. Orders: - POCT Glucose - POCT Hgb A1c - Dulaglutide (Trulicity) 3 MG/0.5ML solution auto-injector; Inject 3 mg under the skin 1 (one) time per week. Encounter for immunization - FLU VACCINE TRIVALENT HIGH DOSE 2746-6698 (Fluzone) 65 yrs + Encounter for vaccination - COVID-19 VACCINE 4230-7460 (Comirnaty) 19 yrs + Other orders - guaiFENesin (Mucinex) 600 MG 12 hr tablet; Take 2 tablets (1,200 mg) by mouth 2 times daily. Do not crush, chew, or split. Future Appointments Date Time Provider Department Center 02/10/2025 9:30 AM Skye Melton RN MEDICINE [facility] 03/14/2025 10:00 AM Abbey Deng OD [facility] documented in this encounter Plan of Treatment Upcoming Encounters Date Type Department Care Team (Late st Contact Info) Description 02/10/2025 9:30 AM EST Telemedicine [facility] MEDICINE [address] [place] [address] Skye Melton RN 03/14/2025 10:00 AM EST Office Visit [facility] OPTOMETRY [address] [place], [place] [phone] Abbey Deng OD [address] [place] [address] documented as of this encounter Goals Goal Patient Goal Type Associated Problems Recent Progress Patient-Stated? Author Smoking cessation General No Inga Magaña PharmD documented as of this encounter Procedures Procedure Name Priority Date/Time Associated Diagnosis Comments POCT GLYCATED HEMOGLOBIN, TOTAL Routine 01/25/2025 9:46 AM EDT Type 2 diabetes mellitus with other specified complication, unspecified whether longterm insulin use (HCC) POCT GLUCOSE Routine 01/25/2025 9:42 AM EDT Type 2 diabetes mellitus with other specified complication, unspecified whether longterm insulin use (HCC) documented in this encounter Results * (ABNORMAL) POCT Hgb A1c (01/25/2025 9:46 AM EDT) Hemoglobin A1C 8.9(A) 4.0 - 5.7 % QC Media Lot # [id number] Lot# Expiration Date 4162 Blood 01/25/2025 9:46 AM EDT Bobby David MD POINT OF CARE TEST ENTER/EDIT OR DERABLES Final Result * (ABNORMAL) POCT Glucose (01/25/2025 9:42 AM EDT) Glucose Blood, POC 211(A) 60 - 200 mg/dL QC Media Lot # [id number] Blood Capillary blood specimen / Unknown 01/25/2025 9:42 AM EDT us Bobby David MD POINT OF CARE TEST ENTER/EDIT OR DERABLES Final Result documented in this encounter Visit Diagnoses Diagnosis COPD exacerbation (CMS/HCC) (HCC)- Primary Obstructive chronic bronchitis with exacerbation Type 2 diabetes mellitus with other specified complication, unspecified whether longterm insulin use (HCC) Encounter for immunization Encounter for vaccination documented in this encounter Additional Health Concerns Assessment Noted Time PHQ-9 Depression Total Score: 0 01/26/20 25 10:50 AM EDT documented as of this encounter Care Teams Broadcast Operations Technician Relationship Specialty Start Date End Date Name, MD Bobby [address] [place] [address] PCP - General Family Medicine 06/01/15 [place] 05/13/24 documented as of this encounter
--- NOTE | ~2025-01-30 | US_ITS ---
CLINICAL HISTORY: N20.0 - Calculus of kidney US Renal Comparison: US - US RENAL BI - 08/01/24 09:29 EDT Findings: Right kidney normal size and echotexture, 11.6 cm length. 3 mm right lower renal stone is present. Left kidney normal size and echotexture, 12.2 cm length. 4 mm left superior stone is present. Mild right hydronephrosis is present, mildly increased since prior exam. IMPRESSION: 1. Mild right hydronephrosis, mildly increased since prior exam. 2. 3 mm right lower renal stone and 4 mm left superior renal stone. This document has been electronically signed by: Amanda Upton on 01/31/2025 08:37:22
--- OUTSIDE RECORDS SUMMARY | 2025-01-30 11:59 | XMS_ITS | Encounter Summary ---
Author Organization [employer] Address [address] [place] [address] [address] [place] [address] Care Team Providers Care Aviation Consultant Name Role Phone Name, Bobby GRADY Primary Care Provider [phone] Reason for Visit * Reason Onset Date Comments Hospital Follow-up 05/17/2024 Encounter Details Date Type Department Care Team ([facility] st Contact Info) Description 05/17/2024 Telephone [facility] MEDICINE [address] [place] [address] Name, MD Bobby [address] [place] [address] Hospital Follow-up Social History Tobacco Use Types [...] from pt requesting a HDF appt. Hospital: [facility] transported Date of admission: 04/06/2024 Discharge date: 05/12/2024 Diagnosed: RSV , Influenza A+B , COPD *Send message to [place] Clinical Care Coordinators documented in this encounter Plan of Treatment Upcoming Encounters Date Type Department Care Team (Late st Contact Info) Description 02/10/2025 9:30 AM EST Telemedicine [facility] MEDICINE [address] [place] [address] Skye Melton RN 03/14/2025 10:00 AM EST Office Visit [facility] OPTOMETRY [address] [place] [address] Abbey Deng, OD [address] [place] [address] documented as of this encounter Goals Goal Patient Goal Type Associated Problems Recent Progress Patient-Stated? Author Smoking cessation General No Puia, Inga, PharmD documented as of this encounter Visit Diagnoses Not on filedocumented in this encounter Additional Health Concerns Assessment Noted Time PHQ-9 Depression Total Score: 0 06/19/19 24 10:09 AM EDT documented as of this encounter Care Teams Aviation Consultant Relationship Specialty Start Date End Date Name, MD Bobby [address] [place] [address] PCP - General Family Medicine 06/01/15 Eloina 05/13/24 documented as of this encounter
--- OUTSIDE RECORDS SUMMARY | 2025-01-30 11:59 | XMS_ITS | Encounter Summary ---
Author Organization [employer] Address [address] [place] [address] [address]t [place] [address] Care Team Providers Care Bomb Squad Officer Name Role Phone Name, Bobby GRADY Primary Care Provider [phone] Encounter Details Date Type Department Care Team ([facility] st Contact Info) Description 01/27/2025 Telephone [facility] MEDICINE [address] [place], [place] [phone] Name, MD Bobby [address] [place] [address] Social History Tobacco Use Types Packs/Day Years [...] Miscellaneous Notes * Telephone Encounter - Bobby Frausto - 01/27/2025 11:02 AM EDT Tc from pt reporting that she has not seen the pt since she has gotten out of the hospital on Thursday. Pt states that [facility] is waiting for paper work from PCP that increases [facility] hours. Contact pt at [phone] documented in this encounter Plan of Treatment Upcoming Encounters Date Type Department Care Team (Late st Contact Info) Description 02/10/2025 9:30 AM EST Telemedicine [facility] MEDICINE [address] [place] [address] Skye Melton, HODA 03/14/2025 10:00 AM EST Office Visit [facility] OPTOMETRY [address] [place] [address] Abbey Deng, OD [address] [place] [address] documented as of this encounter Goals Goal Patient Goal Type Associated Problems Recent Progress Patient-Stated? Author Smoking cessation General No Puia, Inga, PharmD documented as of this encounter Visit Diagnoses Not on filedocumented in this encounter Additional Health Concerns Assessment Noted Time PHQ-9 Depression Total Score: 0 01/26/20 25 10:50 AM EDT documented as of this encounter Care Teams Bomb Squad Officer Relationship Specialty Start Date End Date Name, MD Bobby [address] [place] [address] PCP - General Family Medicine 06/01/15 Eloina 05/13/24 documented as of this encounter
--- OUTSIDE RECORDS SUMMARY | 2025-01-30 11:59 | XMS_ITS | Encounter Summary ---
Author Organization [employer] Address [address] [place] [address] 7t [place] [address] Care Team Providers Care Economics Lecturer Name Role Phone Name, Bobby GRADY Primary Care Provider [phone] Encounter Details Date Type Department Care Team ([facility] st Contact Info) Description 01/17/2025 Results Follow-Up [facility] MEDICINE [address] [place] [address] Name, MD Bobby [address] [place] [address] XR Chest 2 Views Social History Tobacco Use Types Packs/Day Years [...] Info) Description 02/10/2025 9:30 AM EST Telemedicine [facility] MEDICINE [address] [place] [address] kSye Melton RN 03/14/2025 10:00 AM EST Office Visit [facility] OPTOMETRY [address] [place] [address] Abbey Deng, OD [address] [place] [address] documented as of this encounter Goals Goal Patient Goal Type Associated Problems Recent Progress Patient-Stated? Author Smoking cessation General No Puia, Inga, PharmD documented as of this encounter Visit Diagnoses Not on filedocumented in this encounter Additional Health Concerns Assessment Noted Time PHQ-9 Depression Total Score: 5 11/03/19 25 9:53 AM EDT documented as of this encounter Care Teams Economics Lecturer Relationship Specialty Start Date End Date Name, MD Bobby [address] [place] [address] PCP - General Family Medicine 06/01/15 Elo[place] 05/13/24 documented as of this encounter
--- OUTSIDE RECORDS SUMMARY | 2025-01-30 11:59 | XMS_ITS | Encounter Summary ---
Author Organization [employer] Address [address] [facility] 7t [place] [address] Care Team Providers Care Clinical Educator Name Role Phone Name, Bobby GRADY Primary Care Provider [phone] Encounter Details Date Type Department Care Team (Latest Contact Info) Description 01/25/2025 Travel Social History Tobacco Use Types Packs/Day [...] 10:50 AM Cem Durant MA * Feeling down, depressed, or hopeless Answer Date of Assessment Author Not at all 01/25/2025 10:50 AM Cem Durant [place] * Trouble falling or staying asleep, or sleeping too much Answer Date of Assessment Author Not at all 01/25/2025 10:50 AM Cem Durant MA * Feeling tired or having little energy Answer Date of Assessment Author Not at all 01/25/2025 10:50 AM Cem Durant MA * Poor appetite or overeating Answer [...] 01/25/2025 10:50 AM Cem Durant MA * Moving or speaking so slowly that other people could have noticed? Or the opposite - being so fidgety or restless that you have been moving around a lot more than usual. Answer Date of Assessment Author Not at all 01/25/2025 10:50 AM Cem Durant MA * Thoughts that you would be better off or hurting yourself in some way Answer Date of Assessment Author Not at all 01/25/2025 10:50 AM Cem Durant MA * Patient Health Questionnaire-9 Score Answer Date of Assessment Author 0 01/25/2025 10:50 AM Cem Durant MA * Over the last 2 weeks, how often have you been bothered by any of the following problems? Question Answer Date of Assessment Author Feeling nervous, anxious, or on edge 0 01/25/2025 10:50 AM Dennis Durant MA Not being able to stop or control worrying 0 01/25/2025 10:50 AM Dennis Durant MA Worrying too much about different things 0 01/25/2025 10:50 AM Dennis Durant MA Trouble relaxing 0 01/25/2025 10:50 AM Cem Durant MA Being so restless that it is hard to sit still 0 01/25/2025 10:50 AM Dennis Durant MA Becoming easily annoyed or irritable 0 01/25/2025 10:50 AM Dennis Durant MA Feeling afraid as if something awful might happen 0 01/25/2025 10:50 AM Cem Mc MA MOE-7 Total Score 0 01/25/2025 10:50 AM Cem Durant MA documented as of this encounter Plan of Treatment Upcoming Encounters Date Type Department Care Team (Late st Contact Info) Description 02/10/2025 9:30 AM EST Telemedicine [facility] MEDICINE [address] [place] [address] Skye Melton, HODA 03/14/2025 10:00 AM EST Office Visit [facility] OPTOMETRY [address] [place] [address] Ish Abbey, OD [address] [place] [address] documented as of this encounter Goals Goal Patient Goal Type Associated Problems Recent Progress Patient-Stated? Author Smoking cessation General No Inga Magaña, MiltonD documented as of this encounter Visit Diagnoses Not on filedocumented in this encounter Additional Health Concerns Assessment Noted Time PHQ-9 Depression Total Score: 0 01/26/20 25 10:50 AM EDT documented as of this encounter Care Teams Clinical Educator Relationship Specialty Start Date End Date Name, MD Bobby [address] [place] [address] PCP - General Family Medicine 06/01/15 Eloina 05/13/24 documented as of this encounter
--- OUTSIDE RECORDS SUMMARY | 2025-01-30 11:59 | XMS_ITS | Encounter Summary ---
Author Organization [employer] Address [address] [place] [address] 7[address] [place] [address] Care Team Providers Care Fine Arts Packer Name Role Phone Name, Bobby GRADY Primary Care Provider [phone] Reason for Visit * Reason Onset Date Comments FYI 01/25/2025 Encounter Details Date Type Department Care Team ([facility] Contact Info) Description 01/25/2025 Telephone [facility] MEDICINE [address] [place] [address] Name, MD Bobby [address] [place] [address] FYI Social History Tobacco Use Types Packs/Day [...] AM EDGART Cem Berrios MA * Feeling down, depressed, [...] MOE-7 Total Score 0 01/25/2025 10:50 AM EDT Cem Berrios MA documented as of this encounter Miscellaneous Notes * Telephone Encounter - Yared Kaplan - 01/25/2025 3:31 PM EDT TC from Abbey with [facility] wanted to advise that pt is declining at home Physical Therapy at this time , but is excepting nursing services. If any questions please call [phone] documented in this encounter Plan of Treatment Upcoming Encounters Date Type Department Care Team (Late st Contact Info) Description 02/10/2025 9:30 AM EST Telemedicine [facility] MEDICINE [address] [place] [address] Skye Melton, HODA 03/14/2025 10:00 AM EST Office Visit [facility] OPTOMETRY [address] [place] [address] Abbey Deng, OD [address] [place] [address] documented as of this encounter Goals Goal Patient Goal Type Associated Problems Recent Progress Patient-Stated? Author Smoking cessation General No Inga Magaña, PharmD documented as of this encounter Visit Diagnoses Not on filedocumented in this encounter Additional Health Concerns Assessment Noted Time PHQ-9 Depression Total Score: 0 01/26/20 10:50 AM EDT documented as of this encounter Care Teams Fine Arts Packer Relationship Specialty Start Date End Date Name, MD Bobby [address] [place] [address] PCP - General Family Medicine 06/01/15 [place] 05/13/24 documented as of this encounter
--- OUTSIDE RECORDS SUMMARY | 2025-01-30 11:59 | XMS_ITS | Encounter Summary ---
Author Organization [employer] Address [address] [facility] 7t [place] [address] Care Team Providers Care Hull And Deck Remover Name Role Phone Name, Bobby GRADY Primary Care Provider [phone] Inga Magaña PharmD Unavailable [phone] Reason for Visit * Reason Onset Date Comments Med Refill 01/20/2023 Encounter Details Date Type Department Care Team (Late st Contact Info) Description 01/20/2023 Telephone [facility] MEDICINE [address] [place] [address] Name, MD Bobby [address] [place] [address] Med Refill Social History Tobacco Use Types [...] Telemedicine [facility] MEDICINE [address] [place] [address] Skye Melton, HODA 03/14/2025 10:00 AM EST Office Visit [facility] OPTOMETRY [address] [place] [address] Abbey Deng OD [address] [place] [address] documented as of this encounter Goals Goal Patient Goal Type Associated Problems Recent Progress Patient-Stated? Author Smoking cessation General No Inga Magaña, PharmD documented as of this encounter Visit Diagnoses Not on filedocumented in this encounter Additional Health Concerns Assessment Noted Time PHQ-9 Depression Total Score: 0 03/11/20 22 11:47 AM EST documented as of this encounter Care Teams Hull And Deck Remover Relationship Specialty Start Date End Date Name, MD Bobby [address] [place] [address] PCP - General Family Medicine 06/01/15 Inga Magaña PharmD [address] [place] [address] Pharmacist Internal Medicine 01/07/23 09/29/23 [place] 05/13/24 documented as of this encounter
--- OUTSIDE RECORDS SUMMARY | 2025-01-30 11:59 | XMS_ITS | Encounter Summary ---
Author Organization [employer] Address [address] [place] [address] 7 [place] [address] Care Team Providers Care Fork Lift Technician Name Role Phone Name, Bobby GRADY Primary Care Provider [phone] Inga Magaña PharmD Unavailable [phone] Encounter Details Date Type Department Care Team (Late Contact Info) Description 09/01/2022 Abstract [facility] MEDICINE [address] [place] [address] Name, MD Bobby [address] [place] [address] Social History Tobacco Use Types Packs/Day Years [...] Department Care Team (Late Contact Info) Description 02/10/2025 9:30 AM EST Telemedicine [facility] MEDICINE [address] [place] [address] Skye Melton RN 03/14/2025 10:00 AM EST Office Visit [facility] OPTOMETRY [address] [place] [phone] Abbey Deng, OD [address] [place] [address] documented as of this encounter Visit Diagnoses Not on filedocumented in this encounter Additional Health Concerns Assessment Noted Time PHQ-9 Depression Total Score: 0 03/11/20 22 11:47 AM EST documented as of this encounter Care Teams Fork Lift Technician Relationship Specialty Start Date End Date Name, MD Bobby [address] [place] [address] PCP - General Family Medicine 06/01/15 Inga Magaña PharmD [address] [place] [address] Pharmacist Internal Medicine 01/07/23 09/29/23 [place] 05/13/24 documented as of this encounter
--- OUTSIDE RECORDS SUMMARY | 2025-01-30 11:59 | XMS_ITS | Encounter Summary ---
Author Organization [employer] Address [address] [place] [address] 7t [place] [address] Care Team Providers Care Cardiothoracic Physiotherapist Name Role Phone Name, Bobby GRADY Primary Care Provider [phone] Inga Magaña PharmD Unavailable [phone] Reason for Visit * Reason Onset Date Comments Prior Authorization 01/21/2023 HumaLOG KWIK PEN 100 UNIT/ML injection Encounter Details Date Type Department Care Team ([facility] st Contact Info) Description 01/21/2023 Telephone [facility] MEDICINE [address] [place], [place] [phone] Name, MD Bobby [address] [place] [address] Prior Authorization (HumaLOG KWIKPEN 100 UNIT/ML injection) [...] Info) Description 02/10/2025 9:30 AM EST Telemedicine [facility] MEDICINE [address] [place] [address] Skye Melton RN 03/14/2025 10:00 AM EST Office Visit [facility] OPTOMETRY [address] [place], [place] [phone] Abbey Deng OD [address] [place] [address] documented as of this encounter Goals Goal Patient Goal Type Associated Problems Recent Progress Patient-Stated? Author Smoking cessation General No Inga Magaña, PharmD documented as of this encounter Visit Diagnoses Not on filedocumented in this encounter Additional Health Concerns Assessment Noted Time PHQ-9 Depression Total Score: 0 03/11/20 22 11:47 AM EST documented as of this encounter Care Teams Cardiothoracic Physiotherapist Relationship Specialty Start Date End Date Name, MD Bobby [address] [place] [address] PCP - General Family Medicine 06/01/15 Inga Magaña PharmD [address] [place] [address] Pharmacist Internal Medicine 01/07/23 09/29/23 [place] 05/13/24 documented as of this encounter
--- OUTSIDE RECORDS SUMMARY | 2025-01-30 11:59 | XMS_ITS | Encounter Summary ---
Author Organization [employer] Address [address] [place] [address] [address] [place] [address] Care Team Providers Care Wet Suit Gluer Name Role Phone Name, Bobby GRADY Primary Care Provider [phone] Inga Magaña PharmD Unavailable [phone] Reason for Visit * Reason Comments Med Refill Encounter Details Date Type Department Care Team (Late Contact Info) Description 11/18/2022 Refill [facility] MED & PEDS [address] [place] [address] Name, MD Bobby [address] [place] [address] Type 2 diabetes mellitus without complications (CMS/HCC) [...] Info) Description 02/10/2025 9:30 AM EST Telemedicine [facility] MEDICINE [address] [place] [address] Skye Melton, RN 03/14/2025 10:00 AM EST Office Visit [facility] OPTOMETRY [address] [place], [place] [phone] Abbey Deng, OD [address] [place] [address] documented as of this encounter Visit Diagnoses Diagnosis Type 2 diabetes mellitus without complications (HCC) documented in this encounter Additional Health Concerns Assessment Noted Time PHQ-9 Depression Total Score: 0 03/11/20 22 11:47 AM EST documented as of this encounter Care Teams Wet Suit Gluer Relationship Specialty Start Date End Date Name, MD Bobby [address] [place] [address] PCP - General Family Medicine 06/01/15 Inga Magaña PharmD [address] [place] [address] Pharmacist Internal Medicine 01/07/23 09/29/23 [place] 05/13/24 documented as of this encounter
--- OUTSIDE RECORDS SUMMARY | 2025-01-30 11:59 | XMS_ITS | Encounter Summary ---
Author Organization [employer] Address [address] [place] [address] 7[address] [place] [address] Care Team Providers Care Golf Club Head Former Name Role Phone Name, Bobby GRADY Primary Care Provider [phone] Inga Magaña PharmD Unavailable [phone] Reason for Visit * Reason Comments Med Refill Encounter Details Date Type Department Care Team (Late st Contact Info) Description 11/18/2022 Refill [facility] MEDICINE [address] [place], [place] [phone] Sherly Pichardo, GEETA [address] [place], [place] [phone] Type 2 diabetes mellitus without complications (CMS/[facility]) Social History Tobacco Use Types Packs/Day Years [...] Description 02/10/2025 9:30 AM EST Telemedicine [facility] MEDICINE [address] [place], [place] [phone] Skye Melton, HODA 03/14/2025 10:00 AM EST Office Visit [facility] OPTOMETRY [address] [place], [place] [phone] Abbey Deng, OD [address] [place], [place] [phone] documented as of this encounter Visit Diagnoses Diagnosis Type 2 diabetes mellitus without complications (HCC) documented in this encounter Additional Health Concerns Assessment Noted Time PHQ-9 Depression Total Score: 0 03/11/20 22 11:47 AM EST documented as of this encounter Care Teams Golf Club Head Former Relationship Specialty Start Date End Date Name, MD Bobby [address] [place], [place] [phone] PCP - General Family Medicine 06/01/15 Inga Magaña PharmD [address] [place] [address] Pharmacist Internal Medicine 01/07/23 09/29/23 [place] 05/13/24 documented as of this encounter
--- OUTSIDE RECORDS SUMMARY | 2025-01-30 12:00 | XMS_ITS | Encounter Summary ---
Author Organization [employer] Address [address] [facility] 7t [place] [address] Care Team Providers Care Hospital Ward Clerk Name Role Phone Name, Bobby GRADY Primary Care Provider [phone] Reason for Visit * Reason Comments Med Refill Encounter Details Date Type Department Care Team ([facility] Contact Info) Description 07/20/2024 Refill [facility] MEDICINE [address] [place] [address] Sherly Pichardo FNP [address] [place] [address] Social History Tobacco Use Types Packs/Day Years [...] Info) Description 02/10/2025 9:30 AM EST Telemedicine [facility] MEDICINE [address] [place] [address] Skye Melton RN 03/14/2025 10:00 AM EST Office Visit [facility] OPTOMETRY [address] [place] [address] Abbey Deng, OD [address] [place] [address] documented as of this encounter Goals Goal Patient Goal Type Associated Problems Recent Progress Patient-Stated? Author Smoking cessation General No Inga Magaña, PharmD documented as of this encounter Visit Diagnoses Not on filedocumented in this encounter Additional Health Concerns Assessment Noted Time PHQ-9 Depression Total Score: 0 06/19/19 24 10:09 AM EDT documented as of this encounter Care Teams Hospital Ward Clerk Relationship Specialty Start Date End Date Name, MD Bobby [address] [place] [address] PCP - General Family Medicine 06/01/15 [place] 05/13/24 documented as of this encounter
--- OUTSIDE RECORDS SUMMARY | 2025-01-30 12:00 | XMS_ITS | Encounter Summary ---
Author Organization [employer] Address [address] [place] [address] 7t [place] [address] Care Team Providers Care Heel Reducer Name Role Phone Name, Bobby GRADY Primary Care Provider Inga Magaña PharmD Unavailable Reason for Visit * Reason Comments Med Refill Encounter Details Date Type Department Care Team (Late st Contact Info) Description 04/07/2022 Refill [facility] MEDICINE [address] [facility] [place] [address] Sherly Pichardo, SOUND DESIGNER [address] [place] [address] Chronic low back pain with sciatica, sciatica [...] Info) Description 02/10/2025 9:30 AM EST Telemedicine [facility] MEDICINE [address] [place] [address] Skye Melton, RN 03/14/2025 10:00 AM EST Office Visit [facility] OPTOMETRY [address] [place] [address] Ish Abbey, OD [address] [place] [address] documented as of this encounter Visit Diagnoses Diagnosis Chronic low back pain with sciatica, sciatica laterality unspecified, unspecified back pain laterality documented in this encounter Additional Health Concerns Assessment Noted Time PHQ-9 Depression Total Score: 0 03/11/20 11:47 AM EST documented as of this encounter Care Teams Heel Reducer Relationship Specialty Start Date End Date Name, MD Bobby [address] [place] [address] PCP - General Family Medicine 06/01/15 Inga Magaña, MiltonD [address] [place] [address] Pharmacist Internal Medicine 01/07/23 09/29/23 [place] 05/13/24 documented as of this encounter
--- OUTSIDE RECORDS SUMMARY | 2025-01-30 12:00 | XMS_ITS | Clinical Summary ---
Author Organization [employer] Address [address] [place] [address] 7 [place] [address] Care Team Providers Care Lithography Contact Worker Name Role Phone Name, Bobby GRADY Primary Care Provider [phone] Allergies Active Allergy Reactions Criticality Noted Date [...] mellitus with other specified complication, unspecified whether nursing home insulin use (HCC) USE DIRECTED FIVE TIMES [...] obstructive pulmonary disease, unspecified COPD type (CMS/HCC) ([facility]) INHALE 1 PUFF 4 TIMES A DAY, [...] mellitus with other specified complication, unspecified whether intermission coordinator insulin use ([facility]) INJECT 40 units in the AM and 30 units in the PM 15 mL 5 025 Active pregabalin (Lyrica) 150 MG capsuleIndicatio ns:Chronic pain syndrome Take 1 capsule (150 mg) by mouth 2 times daily. 60 capsule 025 2025 Active ipratropium-albu terol (Duo-Neb) 0.5-2.5 mg/3 mL nebulizer solutionIndicati ons:Chronic obstructive pulmonary disease, unspecified ([facility]) INHALE 1 AMPULE USING A NEBULIZER FOUR TIMES DAILY 360 mL 3 025 Active fluticasone (Flonase) 50 MCG/ACT nasal spray INSTILL 2 SPRAYS IN EACH NOSTRIL ONCE DAILY 16 g 3 025 Active baclofen (Lioresal) 10 MG tabletIndication s:Lumbar radiculopathy TAKE 1 TABLET BY MOUTH EVERY 8 HOURS NEEDED FOR MUSCLE SPASMS 45 tablet 025 Active Jardiance 10 MG TAKE 1 TABLET BY MOUTH ONCE DAILY 30 tablet 11 025 Active oxyCODONE-acetam inophen (Percocet) 7.5-325 MG tabletIndication s:Chronic low back pain with sciatica, sciatica laterality unspecified, unspecified back pain laterality TAKE 1 TABLET BY MOUTH EVERY 6 HOURS NEEDED FOR SEVERE PAIN 112 tablet Active Dulaglutide (Trulicity) 3 MG/0.5ML solution auto-injectorInd ications:Type 2 diabetes mellitus with other specified complication, unspecified whether nursing home insulin use (HCC) Inject 3 mg under the skin 1 (one) time per week. 2 mL 3 025 2024 Active guaiFENesin (Mucinex) 600 MG 12 hr tablet Take 2 tablets (1,200 mg) by mouth 2 times daily. Do not crush, chew, or split. 120 tablet 11 025 2025 Active empagliflozin (Jardiance) 10 MG Take 1 tablet (10 mg) by mouth Once per day. 30 tablet 11 024 2024 Discontinued Trulicity 1.5 MG/0.5ML solution auto-injectorInd ications:Type 2 diabetes with complication (HCC),COPD exacerbation (CMS/HCC) ([facility]) INJECT ONE PEN (=1.5MG) SUBCUTANEOUSLY ONCE A WEEK DIRECTED 2 mL 11 025 2024 Discontinued(D ose adjustment) baclofen (Lioresal) 10 MG tabletIndication s:Lumbar radiculopathy TAKE 1 TABLET BY MOUTH EVERY 8 HOURS NEEDED FOR MUSCLE SPASMS 45 tablet 025 2024 Discontinued oxyCODONE-acetam inophen (Percocet) 7.5-325 MG tabletIndication s:Chronic low back pain with sciatica, sciatica laterality unspecified, unspecified back pain laterality TAKE 1 TABLET BY MOUTH EVERY 6 HOURS NEEDED FOR SEVERE PAIN 112 tablet 025 2024 Discontinued Active Problems [...] neoplasm o f colon 09/30/2023 CAD in benton artery 09/02/2023 Opioid dependence, daily use (CMS/HCC) [...] Date Diagnosed Date Resolved Date COPD exacerbation ([facility]) 04/04/2024 06/27/2024 Assessment & Plan (04/04/2024 12:56 PM EST): Pt endorses increased sputum production, increased sob, Neg covid tests at home Chest x-ray neg- in care with pulmonary, Extensive conversation about smoking cessation Will treat with prednisone burst/taper and doxycylcine Hypothyroidism, acquired 02/02/2023 Subclinical hyperthyroidism 01/26/2020 06/19/2023 Encounters Date Type Department Care Team Description 01/27/2025 Telephone [facility] [address] [place] [phone] Bobby David MD 01/25/2025 9:30 AM EDT Office Visit [address] [address] Bobby David MD COPD exacerbation (CMS/HCC) (HCC) (Primary Dx); Type 2 diabetes mellitus with other specified complication, unspecified whether intermission coordinator insulin use (HCC); Encounter for immunization; Encounter for vaccination 01/25/[address] [address] Bobby David MD FYI 01/25/2025 Travel 01/24/[address] [address] Bobby David MD Chart Prep 01/24/2025 Patient Outreach [facility] [address] [place] [address] Bobby David MD Transition Of Care (Tcm) (HDF scheduled) 01/17/2025 Refill [facility] [address] [place] [address] Bobby David MD Chronic low back pain with sciatica, sciatica laterality unspecified, unspecified back pain laterality 01/17/2025 Results Follow-Up [address] [address] Bobby David MD XR Chest 2 Views 01/16/2025 Orders Only GENERIC EXTERNAL DATA DEPARTMENT Provider, Generic External Data 01/11/2025 Orders Only GENERIC EXTERNAL DATA DEPARTMENT Provider, Generic External Data 01/10/2025 Refill [facility] [address] [place] [address] Bobby David MD Lumbar radiculopathy 12/19/2024 Refill [facility] [address] [place] [address] Bobby David MD Chronic low back pain with sciatica, sciatica laterality unspecified, unspecified back pain laterality 12/14/[address] [address] Bobby David MD Durable Medical Equipment 12/08/2024 Refill [facility] [address] [place] [address] Bobby David MD Lumbar radiculopathy 12/04/2024 Orders Only GENERIC EXTERNAL DATA DEPARTMENT Provider, Generic External Data 11/25/2024 10:00 AM EDT Telemedicine [facility] [address] [place] [phone] Skye Melton, HODA Long-term current use of opiate analgesic 11/25/2024 Telephone [facility] [address] [place] [address] Skye Melton RN BPI scoring 11/25/2024 Travel 11/18/2024 Orders Only [facility] External Provider, [facility] 11/18/2024 Refill [facility] [address] [place] [address] Bobby David MD Chronic low back pain with sciatica, sciatica laterality unspecified, unspecified back pain laterality 11/14/2024 Telephone [facility] [address] [place] [phone] Bobby David MD Durable Medical Equipment (A/C) 11/14/2024 Refill [facility] [address] [place] [phone] Bobby David MD 11/07/2024 Refill [facility] [address] [place] [phone] Bobby David MD Type 2 diabetes with complication ([facility]); COPD exacerbation ([facility]) 11/04/2024 Telephone [facility] [address] [place] [phone] Bobby David MD 11/04/2024 Refill [facility] [address] [place] [phone] Bobby David MD Chronic obstructive pulmonary disease, unspecified ([facility]) 11/02/2024 9:30 AM EDT Office Visit [facility] [address] [place] [phone] Bobby David MD Type 2 diabetes mellitus with other specified complication, unspecified whether intermission coordinator insulin use ([facility]) (Primary Dx); Hypertension, unspecified type; Chronic obstructive pulmonary disease, unspecified COPD type (CMS/HCC); Atelectasis; Chronic pain syndrome; Acquired hypothyroidism; Encounter for screening mammogram for malignant neoplasm of breast 11/02/2024 Telephone [facility] [address] [place], [place] [phone] Name, MD Bobby FYI 11/02/2024 Travel 11/01/2024 Refill [facility] [address] [place], [place] [phone] Name, MD Bobby Lumbar radiculopathy from Last 3 Months Immunizations Immunization Administration Dates Next Due Influenza Injectable Quadriv alant Preservative Free IIV4 MDCK 01/07/2023,03/06/2019 Influenza injectable quadriv alent IIV4 with preservative 01/18/2018,02/17/2017,12/14/2015 Influenza injectable quadriv alent preservative free 03/11/2022,12/24/2020,12/15/2014 Influenza, High Dose Seasona l, Preservative Free 01/25/2025,12/12/2023 Influenza, IIV3, injectable 01/23/2014, 1 Influenza, Split (incl. jean-claude fied surface antigen) 12/20/2012,01/19/2012 Influenza, Unspecified 01/07/2023,12/24/2020 Influenza, seasonal, injecta ble, preservative free 12/10/2023 Moderna Covid-19 Vaccine 12+ 02/26/2021, 02/26/2021,06/20/2020,06/20 Pfizer Covid-19 Vaccine 12+ 01/25/2025,,03/12/2023 Pfizer Covid-19 Vaccine 12+ Bivalent 03/11/2022 Pneumococcal [...] is your housing situation today? I have mraian hancock 11/02/[address] you [...] Mass Index 26.89 01/25/2025 9:39 AM EDT Plan of Treatment Upcoming Encounters Date Type Department Care Team (Late st Contact Info) Description 02/10/2025 9:30 AM EST Telemedicine [facility] [address] [place] [address] Skye Melton RN 03/14/2025 10:00 AM EST Office Visit [facility] [address] [place] [address] Abbey Deng, OD [address] [place] [address] Health Maintenance Due Date Last Done Comments CT Colonography 1960 FIT DNA/Cologuard 1960 FIT 1960 FOBT 1960 Sigmoidoscopy 1960 Eye Exam 12/30/1969 Hepatitis C Screening 12/30/1977 RSV Patients and Patients Aged 60 years or older (1 - Risk 60-74 years 1-dose series) 2019 Cervical Cancer Screening 02/28/2024 HPV/Cotest 02/28/2024 02/27/2021, 03/03/2018 Pap Smear 02/28/2024 02/27/2021, 02/27/2021 Diabetes: Urine Protein Screening 12/28/2024 12/29/2023, 08/28/2021, 10/30/2020 Lipid Panel 12/28/2024 12/29/2023, 08/28/2021 Diabetes: Hemoglobin A1C 04/27/2025 025, 11/02/2024, 06/22/2024, Additional history exists Colonoscopy 07/16/2025 07/16/2022 Colorectal Cancer Screening 07/16/2025 Alcohol/Substance Use Screening 11/02/2025 11/02/2024 Diabetes: Foot Exam 11/02/2025 11/02/2024, 11/02/2024, 11/02/2024, Additional history exists SDOH Screening 11/02/2025 11/02/2024 Depression Screening 01/25/2026 01/25/2025, 01/26/20 25 Tobacco Screening 01/25/2026 01/25/2025 Mammogram 12/23/2026 12/23/2024, 03/31, 10/10/2020, Additional history exists DTaP/Tdap/Td Vaccines (4 - Td or Tdap) 11/07/2032 11/07/2022, 06/12/2009, 06/12/2009 Pneumococcal Vaccine: 50+ Years Completed 11/07/2022, 11/07/2022, 05/23/2019, Additional history exists Zoster Vaccines Completed 01/07/2023, 12/28, 11/07/2022, Additional history exists COVID-19 Vaccine Completed 01/25/2025, 10/2023, 03/12/2023, Additional history exists Influenza Vaccine Completed 01/25/2025, , 12/10/2023, Additional history exists HIB Vaccines Aged Out [...] Smoking cessation General No Inga Magaña, Lucio Procedures Procedure Name Priority Date/Time Associated Diagnosis Comments POCT GLYCATED HEMOGLOBIN, TOTAL Routine 01/25/2025 9:46 AM EDT Type 2 diabetes mellitus with other specified complication, unspecified whether intermission coordinator insulin use (HCC) POCT GLUCOSE Routine 01/25/2025 9:42 AM EDT Type 2 diabetes mellitus with other specified complication, unspecified whether intermission coordinator insulin use (HCC) XR CHEST 2 VIEWS Routine 01/16/2025 8:03 [...] mellitus with other specified complication, unspecified whether intermission coordinator insulin use (CMS/HCC) POCT GLUCOSE Routine 11/02/2024 9:44 AM EDT Type 2 diabetes mellitus with other specified complication, unspecified whether nursing home insulin use (CMS/HCC) ALBUMIN, RANDOM URINE W/CREATININE Routine 12/29/2023 11:20 AM EDT Type 2 diabetes with complication (CMS/HCC) Atherosclerosis of coronary artery of benton heart, unspecified vessel or lesion type, unspecified whether angina present Pain of toe of left foot LIPID PANEL, STANDARD Routine 12/29/2023 11:17 AM EDT Type 2 diabetes with complication (CMS/HCC) Atherosclerosis of coronary artery of benton heart, unspecified vessel or lesion type, unspecified whether angina present Pain of toe of left foot HM COLONOSCOPY Routine 07/16/2022 HM PAP/HPV Routine 02/27/2021 10:30 AM EST THINPREP IMAGING PAP AND HPV MRNA E6/E7 WITH REFLEX TO HPV 16,18/45 Routine 02/27/2021 10:24 AM EST from Last 3 Months or Most Recently Relevant to Health Maintenance Results * (ABNORMAL) POCT Hgb A1c (01/25/2025 9:46 AM EDT) Only the most recent of2 resultswithin the time period is included. Hemoglobin A1C 8.9(A) 4.0 - 5.7 % [employer] Lot # [id number] Lot# Expiration Date [id number] Blood 01/25/2025 9:46 AM EDT Bobby David MD POINT OF CARE TEST ENTER/EDIT OR DERABLES Final Result * (ABNORMAL) POCT Glucose (01/25/2025 9:42 AM EDT) Only the most recent of2 resultswithin the time period is included. Glucose Blood, POC 211(A) 60 - 200 mg/dL [employer] Lot # [id number] Blood Capillary blood specimen / Unknown 01/25/2025 9:42 AM EDT Bobby David MD POINT OF CARE TEST ENTER/EDIT OR DERABLES Final Result * XR Chest 2 Views (01/16/2025 8:03 PM EDT) Only the most recent of2 resultswithin the time period is included. Anatomical Region Laterality Modality Chest Radiographic Ludivina ging 01/16/2025 8:03 PM EDT Narrative 01/16/2025 8:04 PM EDT [place] [address] XRay Report Signed Patient: Marita Zapata MR#: [id number] : 1960 Acct:[id number] Age/Sex: 64 / F ADM Date: 01/16/25 Loc: .ED Attending Dr: Ordering Physician: Ruddy Shabazz Date of Service: 01/16/25 Procedure(s): XR chest 2V Accession Number(s): [id number] cc: Name,Bobby GRADY; Ruddy Shabazz Reason for [...] in OV> 01/16/252003 DD/ 02 TD/TT: 01/16/252002 Power Transmission Engineer: Procedure Note Rogelio, Image - 01/16/[address] [address] XRay Report Signed Patient: Marita Zapata MMR#: [id number] : 1960Acct:[id number] Age/Sex: 64 / FADM Date: 01/16/25 Loc: HO.ED Attending Dr: Ordering Physician: Ruddy Shabazz Date of Service: 01/16/25 Procedure(s): XR chest 2V Accession Number(s): [id number] cc: Name,Bobby GRADY; Ruddy Shabazz Reason for [...] in OV> 01/16/252003 DD/ 02 TD/TT: 01/16/252002 Power Transmission Engineer: [facility] External Provider IMG XR PROCEDURES Edited Result - Final * Influenza A B2 ID NOW (Ryder) (01/16/2025 7:23 PM EDT) IDNOW SERIAL# [id number] [facility] Influenza A Negative Negative [facility] Influenza B2 Negative Negative [facility] Influenza A B2 Note See Note [facility] Comment:The Ryder ID NOW [...] LAB MICROBIOLOGY - GENERAL ORDERABLES Final Result [facility] [address] [place] [phone] * COVID-19 ID NOW (RYDER) (01/16/2025 7:23 PM EDT) IDNOW SERIAL# [id number] [facility] COVID-19 TEST Negative Negative [facility] COVID-19 NOTE See Note [facility] Comment: Results are for the identification [...] use by authorized laboratories.Testing performed on the niiu ID NOW utilizing NAAT. 01/16/2025 7:23 PM EDT 01/16/2025 7:28 PM EDT us Generic External Data Provider LAB MOLECULAR ANIKA GNOSTICS ORDERABLES Final Result [facility] [address] [place] [phone] * (ABNORMAL) CBC auto differential (01/16/2025 7:23 PM EDT) Only the most recent of3 resultswithin the time period is included. White Blood Count 18.1(H) 4.8 - 10.8 X10*3/uL [facility] Red Blood Count 6.29(H) 4.20 - 5.50 X10*6/uL [facility] Hemoglobin 17.6(H) 12.0 - 16.0 g/dl [facility] Hematocrit 53.5(H) 37.0 - 47.0 % [facility] Mean Corpuscular Volume 85.1 80.0 - 98.0 fL [facility] Mean Corpuscular Hemoglobin 28.0 27.0 - 33.0 pg [facility] Mean Corpuscular HGB Conc 32.9 31.0 - 35.0 g/dl [facility] Red Cell Distribution Width 14.4 11.0 - 16.0 % [facility] Platelet Count 250 160 - 400 X10*3/uL [facility] Mean Platelet Volume 10.1 9.4 - 12.3 fL [facility] Neutrophils Percent Auto 76.5(H) 45 - 73 % [facility] Imm Gran Pct Auto 0.5(H) 0.0 - 0.4 % [facility] Lymphocytes Percent Auto 16.7(L) 20 - 40 % [facility] Monocytes Percent Auto 5.9 2 - 11 % [facility] Eosinophils Percent Auto 0.1 0 - 4 % [facility] Basophils Percent Auto 0.3 0 - 2 % [facility] NRBC Pct Auto 0.0 0.0 - 0.2 /100WBC [facility] Neutrophils Absolute Auto 13.9(H) 2.0 - 8.3 x10*3/uL [facility] Imm Gran Abs Auto 0.09(H) 0.00 - 0.03 X10*3/uL [facility] Lymphocytes Absolute Auto 3.0 1.2 - 4.9 X10*3/uL [facility] Monocytes Absolute Auto 1.1 0.1 - 1.2 X10*3/uL [facility] Eosinophils Absolute Auto 0.0 0.0 - 0.4 X10*3/uL [facility] Basophils Absolute Auto 0.1 0.0 - 0.2 X10*3/uL [facility] NRBC Abs Auto 0.000 0.0 - 0.012 X10*3/uL [facility] 01/16/2025 7:23 PM EDT 01/16/2025 7:28 PM EDT us Generic External Data Provider LAB BLOOD ORDERAB LES Final Result Performing Organization Address [facility]/ZIP Co de Phone Number [facility] [address] [place] [phone] * Lipase (01/16/2025 7:23 PM EDT) Lipase 19 8 - 78 U/L [facility] 01/16/2025 7:23 PM EDT 01/16/2025 7:28 PM EDT Generic External Data Provider LAB BLOOD ORDERAB LES Final Result Performing Organization Address [facility]/ZIP Co de Phone Number [facility] [address] [place] [phone] * Lactic Acid (01/16/2025 7:23 PM EDT) Only the most recent of2 resultswithin the time period is included. Lactic Acid 2.0 0.5 - 2.0 mmol/L [facility] 01/16/2025 7:23 PM EDT 01/16/2025 7:28 PM EDT us Generic External Data Provider LAB BLOOD ORDERAB LES Final Result [facility] [address] [place] [phone] * (ABNORMAL) Comprehensive Metabolic Panel (01/16/2025 7:23 PM EDT) Only the most recent of2 resultswithin the time period is included. Sodium 139 135 - 145 mmol/L [facility] Potassium 4.1 3.3 - 5.1 mmol/L [facility] Chloride 107 96 - 108 mmol/L [facility] Carbon Dioxide 20(L) 22 - 29 mmol/L [facility] Anion Gap 16 12 - 20 [facility] Urea Nitrogen (BUN) 25(H) 9 - 16 mg/dL [facility] Creatinine, Serum 0.96 0.5 - 1.4 mg/dL [facility] Creatinine Clr Calc Pharmacy 57.2 [facility] Comment:Provided height and weight: 165.1 cm,69.6 kg.eGFR (calculated from the MDRD study equation) and eCrCl(calculated from the Cockcroft-Gault equation) are based ondifferent parameters and may not yield comparable results.If eCrCl result is absurd, please check patient'sheight/weight. Estimated Glomerular Filt Rate 58 [facility] Comment:Chronic Kidney Disea se: Estimated GFR < 60 mL/min/1.52h4Zdkzav Kidney Disease: Estimated GFR < 15 mL/min/1.73m2 Glucose 364(HH) 60 - 115 mg/dL [facility] Comment:Critical value for t est(s): GLU Results called to and readback by: ADIA Person calling:TAMEKA Date:01/16/25Time: 2012 Calcium 8.9 8.4 - 10.2 mg/dL [facility] Bilirubin, Total 0.6 0.0 - 1.0 mg/dL [facility] Aspartate Amino Transferase 29 5 - 31 U/L [facility] Alanine Aminotransferase 39(H) 0 - 31 U/L [facility] Total Protein 6.9 6.5 - 8.0 g/dL [facility] Albumin Level 4.1 3.5 - 5.0 g/dL [facility] Alkaline Phosphatase 84 39 - 117 U/L [facility] 01/16/2025 7:23 PM EDT 01/16/2025 7:28 PM EDT us Generic External Data Provider LAB BLOOD ORDERAB LES Final Result Performing Organization Address City/State/[facility] de Phone Number [facility] [address] [place] [address] [phone] * CTA Chest PE Protocal (01/11/2025 10:18 AM EDT) Anatomical Region Laterality Modality Body, Chest Computed Tomogra phy 01/11/2025 10:1 8 AM EDT Narrative 01/11/2025 11:12 AM EDT [place] [address] CT Scan Report Signed Patient: Marita Zapata MR#: [id number] : 1960 Acct:[id number] Age/Sex: 64 / F ADM Date: 01/11/25 Loc: HO.ED Attending Dr: Ordering Physician: Rebecca Terry DO Date of Service: 01/11/25 Procedure(s): CT angio chest PE protocol Accession Number(s): [id number] cc: Rebecca Terry DO; Name,Bobby GRADY Report Number: [id number]: Total DLP = 316.00 mGy-cm Reason for [...] Kely Bañuelos MD 01/11/2025 11:09 AM EDT RP Dictated By: Kely Bañuelos MD Signed By: <Electronically signed by Kely Bañuelos MD in OV> 01/11/25 1109 DD/ 1018 TD/TT: 01/11/25 1050 Power Transmission Engineer: ISH Procedure Note Donotuseinterpreter, Image - 01/11/[address] [place] [address] [address] Scan Report Signed Patient: Marita Zapata [facility]#: [id number] : 1960Acct:[id number] Age/Sex: 64 / FADM Date: 01/11/25 Loc: .ED Attending Dr: Ordering Physician: Rebecca Terry DO Date of Service: 01/11/25 Procedure(s): CT angio chest PE protocol Accession Number(s): [id number] cc: Rebecca Terry DO; Name,Bobby GRADY Report Number: [id number]: Total DLP = 316.00 mGy-cm Reason for [...] 01/11/25 1109 DD/ 1018 TD/TT: 01/11/25 1050 Power Transmission Engineer: ISH [facility] External Provider IMG CT PROCEDURES Final Result * Blood Culture (Second) (01/11/2025 9:54 AM EDT) Blood Venous blood specimen / Unknown 01/11/2025 9:54 AM EDT 01/11/2025 10:01 AM EDT Comment:Blood Narrative [facility] - 01/16/2025 12:01 PM EDT Blood Culture (Second) No growth after 5 days. Specimen Source: Blood Generic External Data Provider LAB MICROBIOLOGY - GENERAL ORDERABLES Final Result Performing Organization Address City/State/[facility] Co de Phone Number [facility] [address] [place] [phone] * VENOUS BLOOD GAS (01/11/2025 9:51 AM EDT) VBG pH 7.41 7.32 - 7.43 [facility] Comment:METER #: [id number] additional_comment: Cb bdaweh VBG PCO2 40 mmHg [facility] Comment:METER #: [id number] additional_comment: Cb bdaweh VBG PO2 48 mmHg [facility] Comment:METER #: [id number] additional_comment: Cb bdaweh VBG Base Excess 1.6 mmol/L [facility] Comment:METER #: [id number] additional_comment: Cb bdaweh VBG HCO3 26 22 - 26 mmol/L [facility] Comment:METER #: [id number] additional_comment: Cb bdaweh O2 Sat, Maynor 74.0 % [facility] Comment:METER #: [id number] additional_comment: Cb bdaweh 01/11/2025 9:51 AM EDT 01/11/2025 9:56 AM EDT Generic External Data Provider LAB BLOOD ORDERAB LES Final Result Performing Organization Address [facility]/ZIP Co de Phone Number [facility] [address] [place] [phone] * Blood Culture (First) (01/11/2025 9:46 AM EDT) Blood Venous blood specimen / Unknown 01/11/2025 9:46 AM EDT 01/11/2025 9:50 AM EDT Comment:Blood Narrative [facility] - 01/16/2025 11:50 AM EDT Blood Culture (First) No growth after 5 days. Specimen Source: Blood Generic External Data Provider LAB MICROBIOLOGY - GENERAL ORDERABLES Final Result Performing Organization Address [facility] de Phone Number [facility] [address] [place] [phone] * High Sensitivity Troponin I (01/11/2025 9:02 AM EDT) Only the most recent of2 resultswithin the time period is included. TROPONIN I HIGH SENSITIVITY 4.2 <3.5 - 17.0 ng/L [facility] Comment:The Ryder high sens itivity Troponin-I results should beused in conjunction with other diagnostic information suchas ECG, clinical observations and information, and patientsymptoms to aid in the diagnosis of NE. 01/11/2025 9:02 AM EDT 01/11/2025 9:04 AM EDT Generic External Data Provider LAB BLOOD ORDERAB LES Final Result Performing Organization Address [facility] Co de Phone Number [facility] [address] [place] [phone] * SARS-CoV-2 RNA, Influenza A/B, and RSV RNA, Ql NAAT (01/11/2025 9:02 AM EDT) Only the most recent of2 resultswithin the time period is included. Pathologist [facility] Influenza A PCR NEGATIVE Negative [facility] Influenza B PCR NEGATIVE Negative [facility] Resp Syncy Virus RNA Qual PCR NEGATIVE Negative [facility] SARS COV2 PCR NEGATIVE Negative [facility] Comment:All test results mus t be [...] use by authorized laboratories.Testing performed on the Green ChipsXpert utilizingreal-time RT-PCR.All SARS CoV2 and positive influenza A/B results arereported to [facility]. 01/11/2025 9:02 AM EDT 01/11/2025 9:04 AM EDT us Generic External Data Provider LAB MICROBIOLOGY - GENERAL ORDERABLES Final Result [facility] [address] [place] [address] [phone] * (ABNORMAL) Basic Metabolic Panel (01/11/2025 9:02 AM EDT) Pathologist [facility] Sodium 144 135 - 145 mmol/L [facility] Potassium 4.1 3.3 - 5.1 mmol/L [facility] Chloride 112(H) 96 - 108 mmol/L [facility] Carbon Dioxide 21(L) 22 - 29 mmol/L [facility] Anion Gap 15 12 - 20 [facility] Urea Nitrogen (BUN) 13 9 - 16 mg/dL [facility] Creatinine, Serum 0.67 0.5 - 1.4 mg/dL [facility] Creatinine Clr Calc Pharmacy 83.6 [facility] Comment:Provided height and weight: 165.1 cm,72.575 kg.eGFR (calculated from the MDRD study equation) and eCrCl(calculated from the Cockcroft-Gault equation) are based ondifferent parameters and may not yield comparable results.If eCrCl result is absurd, please check patient'sheight/weight. Estimated Glomerular Filt Rate >60 [facility] Comment:Chronic Kidney Disea se: Estimated GFR < 60 mL/min/1.09k0Svxgub Kidney Disease: Estimated GFR < 15 mL/min/1.73m2 Glucose 180(H) 60 - 115 mg/dL [facility] Calcium 9.2 8.4 - 10.2 mg/dL [facility] 01/11/2025 9:02 AM EDT 01/11/2025 9:04 AM EDT us Generic External Data Provider LAB BLOOD ORDERAB LES Final Result Performing Organization Address City/State/[facility] Co de Phone Number [facility] [address] [place] [address] [phone] * BD DEXA Axial (12/23/2024 12:50 PM EDT) Anatomical Region Laterality Modality Body Radiographic Ludivina ging 12/23/2024 12:5 0 PM EDT Narrative 12/23/2024 1:23 PM EDT [address] [place] [address] Mammography Report Signed Patient: Marita Zapata MR#: [id number] : 1960 Acct:[id number] Age/Sex: 63 / F ADM Date: 12/23/24 Loc: MAMMO Attending Dr: Bobby David MD Ordering Physician: Bobby David MD Results: Date of Service: 12/23/24 Follow Up: Procedure(s): XR DEXA axial skeleton Accession Number(s): [id number] cc: Bobby David MD Reason For Exam: osteopenia, chronic prednisone use EXAMINATION: DXA BONE DENSITY AXIAL HISTORY: osteopenia, chronic prednisone use TECHNIQUE: ProofPilot Dual energy absorptiometry (DEXA) of the lumbar [...] is a trademark of the [employer]'s [employer] for Metabolic Bone Disease, a World Health Organization (WHO) Collaborating Center. Electronically signed by: Brooks Daly MD 12/23/2024 01:20 PM EDT Dictated By: Brooks Daly MD Signed By: <Electronically signed by Brooks Daly MD in OV> 12/23/24 1320 DD/ 1250 TD/TT: 12/23/24 1315 Power Transmission Engineer: Procedure Note Donotuseinterpreter, Image - 12/23/2024 [facility] [address] [place] [address] Mammography Report Signed Patient: Marita Zapata [facility]#: [id number] : 1960Acct:[id number] Age/Sex: 63 / FADM Date: 12/23/24 Loc: HO.MAMMO Attending Dr: Bobby David MD Ordering Physician: Bobby Davidesults: Date of Service: 12/23/24Follow Up: Procedure(s): XR DEXA axial skeleton Accession Number(s): [id number] cc: Bobby David MD Reason For Exam: osteopenia, chronic prednisone use EXAMINATION: DXA BONE DENSITY AXIAL HISTORY: osteopenia, chronic prednisone use TECHNIQUE: ProofPilot Dual energy absorptiometry (DEXA) of the lumbar [...] of the [employer] [place] [employer] Metabolic [employer] Disease, a World Health Organization (WHO) Collaborating Center. Electronically signed by: Brooks Daly MD 12/23/2024 01:20 PM EDT RP Dictated By: Brooks Daly MD Signed By: <Electronically signed by Brooks Daly MD in OV> 12/23/24 1320 DD/ 1250 TD/TT: 12/23/24 1315 Power Transmission Engineer: Bobby David MD IM DXA PROCEDURES Final Result * BI Mammogram Screening Tomosynthesis Bilateral (12/23/2024 12:35 PM EDT) Anatomical Region Laterality Modality Breast Bilateral Mammography 12/23/2024 12:3 5 PM EDT Narrative 12/27/2024 9:53 AM EDT [address] [place] [address] Mammography Report Signed Patient: Marita Zapata MR#: [id number] : 1960 Acct:[id number] Age/Sex: 63 / F ADM Date: 12/23/24 Loc: HO.MAMMO Attending Dr: Bobby David MD Ordering Physician: Bobby David MD Results: 2Benign Date of Service: 12/23/24 Follow Up: 1 Year From Orig inal Mammogram Procedure(s): MM tomosynthesis screening BI Accession Number(s): [id number] cc: Bobby David MD Reason For Exam: [...] 12/27/24 0950 DD/ 1235 TD/TT: 12/23/24 1250 Power Transmission Engineer: Procedure Note Donotuseinterpreter, Image - 12/27/2024 [facility] [address] [place] [address] Mammography Report Signed Patient: Marita Zapata [facility]#: [id number] : 1960Acct:[id number] Age/Sex: 63 / FADM Date: 12/23/24 Loc: SUHAILO Attending Dr: Bobby David MD Ordering Physician: Bobby David MDResults: 2Benign Date of Service: 12/23/24Follow Up: 1 Year From Orig inal Mammogram Procedure(s): MM tomosynthesis screening BI Accession Number(s): [id number] cc: Bobby David MD Reason For Exam: [...] 12/27/24 0950 DD/ 1235 TD/TT: 12/23/24 1250 Power Transmission Engineer: Bobby David MD IMG BI PROCEDURES Edited Result - Final * XR Chest 1 View (12/04/2024 1:22 PM EDT) Anatomical Region Laterality Modality Chest Radiographic Ludivina ging 12/04/2024 1:22 PM EDT Narrative 12/04/2024 1:24 PM EDT [place] [address] XRay Report Signed Patient: Marita Zapata MR#: [id number] : 1960 Acct:[id number] Age/Sex: 63 / F ADM Date: 12/04/24 Loc: .ED Attending Dr: Ordering Physician: Drew Herrera Date of Service: 12/04/24 Procedure(s): XR chest 1V Accession Number(s): [id number] cc: Drew Herrera; Name,Bobby GRADY Reason for [...] 12/04/24 1323 DD/ 1322 TD/TT: 12/04/24 1322 Power Transmission Engineer: Procedure Note Donotuseinterpreter, Image - 12/04/2024 [place] [address] XRay Report Signed Patient: Marita Zapata [facility]#: [id number] : 1960Acct:[id number] Age/Sex: 63 / FADM Date: 12/04/24 Loc: HO.ED Attending Dr: Ordering Physician: Drew Herrera Date of Service: 12/04/24 Procedure(s): XR chest 1V Accession Number(s): [id number] cc: Drew Herrera; Name,Bobby GRADY Reason for [...] 12/04/24 1323 DD/ 1322 TD/TT: 12/04/24 1322 Power Transmission Engineer: [facility] External Provider IMG XR PROCEDURES Edited Result - Final * B Type Natriuretic Peptide (BNP) (12/04/2024 11:49 AM EDT) B Type Natriuretic Peptide 51 <100 pg/mL [facility] 12/04/2024 11:4 9 AM EDT 12/04/2024 11:51 AM EDT Generic External Data Provider LAB BLOOD ORDERAB LES Final Result Performing Organization Address City/[facility]/ZIP Co de Phone Number [facility] [address] [place] [phone] * Partial Thromboplastin Time, Activated (APTT) (12/04/2024 11:35 AM EDT) Partial Thromboplastin Time 27.7 26.7 - 34.1 SEC [facility] 12/04/2024 11:3 5 AM EDT 12/04/2024 11:51 AM EDT Generic External Data Provider LAB BLOOD ORDERAB LES Final Result Performing Organization Address [facility]/ZIP Co de Phone Number [facility] [address] [place] [phone] * (ABNORMAL) Prothrombin Time-INR (12/04/2024 11:35 AM EDT) Prothrombin Time 9.7(L) 10.9 - 12.4 SEC [facility] INTERNATIONAL NORM RATIO 0.8(L) 0.9 - 1.1 [facility] Comment:INTERNATIONAL NORMAL IZED RATIO [...] ORDERAB LES Final Result Performing Organization Address [facility] de Phone Number [facility] [address] [place] [phone] * Magnesium (12/04/2024 11:35 AM EDT) Magnesium 2.0 1.6 - 2.6 mg/dL [facility] 12/04/2024 11:3 5 AM EDT 12/04/2024 11:51 AM EDT Generic External Data Provider LAB BLOOD ORDERAB LES Final Result Performing Organization Address [facility] de Phone Number [facility] [address] [place] [phone] * CT Chest w/o Contrast (11/19/2024 7:06 PM EDT) Anatomical Region Laterality Modality Body, Chest Computed Tomogra phy 11/19/2024 7:06 PM EDT Narrative 11/19/2024 7:07 PM EDT [address] [address] [address] Scan Report Signed Patient: Marita Zapata MR#: [id number] : 1960 Acct:[id number] Age/Sex: 63 / F ADM Date: 11/18/24 Loc: HO.CT Attending Dr: Fidel White MD Ordering Physician: Fidel White MD Date of Service: 11/18/24 Procedure(s): CT chest wo IV con Accession Number(s): [id number] cc: Bobby David MD; Fidel White MD Report Number: [id number]: Total DLP = 160.00 mGy-cm CLINICAL HISTORY: [...] in OV> 11/19/241906 DD/ 05 TD/TT: 11/19/241905 Power Transmission Engineer: Procedure Note Donotuseinterpreter, Image - 11/19/[address] [address] [address] Scan Report Signed Patient: Marita Zapata [facility]#: [id number] : 1960Acct:[id number] Age/Sex: 63 / FADM Date: 11/18/24 Loc: HO.CT Attending Dr: Fidel White MD Ordering Physician: Fidel White MD Date of Service: 11/18/24 Procedure(s): CT chest wo IV con Accession Number(s): [id number] cc: Name,Bobby GRADY; Fidel White MD Report Number: [id number]: Total DLP = 160.00 mGy-cm CLINICAL HISTORY: [...] in OV> 11/19/241906 DD/ 05 TD/TT: 11/19/241905 Power Transmission Engineer: [facility] External Provider IMG CT PROCEDURES Final Result * (ABNORMAL) Albumin, Random Urine W/Creatinine (12/29/2023 11:20 AM EDT) Creatinine, Urine 157.96 mg/dL [facility] Microalbumin Urine 47.0 mg/L [facility] Microalbum Creatinine Ratio Ur 29.7(H) <30 ug/mg cr [facility] Comment:Albumin/Creatinine R atio Reference Ranges: Normal: < 30 ug/mg creatinine Microalbuminuria: 30 - 300 ug/mg creatinineClinical Albuminuria: > 300 ug/mg creatinine Urine (Urine, Random) 12/29/2023 11:20 AM EDT 12/29/2023 1:01 PM EDT us Bobby Name MD LAB URINE ORDERABLES Final Resul t [facility] [address] [place] [phone] * (ABNORMAL) Lipid Panel, Standard (12/29/2023 11:17 AM EDT) Triglycerides 172(H) <150 mg/dL [facility] Comment:Desirable Triglyceri de: less than 150 mg/dLBorderline High Triglyceride 150-199 mg/dLHigh Triglyceride: 200-499 mg/dLVery High Triglyceride: greater than or equal to 5OO mg/dL Cholesterol 140 <200 mg/dL [facility] Comment:Desirable Cholestero l: less than 200 mg/dLBorderline High Cholesterol: 200-239 mg/dLHigh Cholesterol: greater than 239 mg/dL LDL Cholesterol Calculated 61 <100 mg/dL [facility] Comment:Desirable LDL: less than 100 mg/dLNear Optimal/Above Optimal LDL: 110- 129 mg/dLBorderline High LDL: 130-159 mg/dLHigh LDL: 160-189 mg/dLVery High LDL: greater than or equal to 190 mg/dL HDL Cholesterol 45 >40 mg/dL [facility] Comment:Desirable HDL: great er than 40 mg/dL Note: This HDL assay may give artificially low results in patients with liver disease. Blood Venous blood specimen / Unknown 12/29/2023 11:17 AM EDT 12/29/2023 1:03 PM EDT us Bobby David MD LAB BLOOD ORDERABLES Final Resul t [facility] [address] [place] [phone] * (ABNORMAL) Colonoscopy (07/16/2022) Colonoscopy Abnormal( A) Normal Comment:repeat in 3-5 yrs us Historical Provider MD HEALTH MAINTENANCE Final Result * Hm Pap Smear (02/27/2021 10:30 AM EST) Pap smear Perfomed Historical Provider MD HEALTH MAINTENANCE Final Result * THINPREP TIS PAP AND HPV mRNA E6/E7 REFLEX HPV 16,18/45 (02/27/2021 10:24 AM EST) Clinical Information: Postmenopausal [facility] COMMENT SEE COMMENT [facility] [...] evaluated with computer assisted technology. [facility] Portfolio Lead: SEE COMMENT [facility] Comment: CULP, CT(ASCP) CT screening location: [place] [address] HPV nRNA E6/E7 Not Detected Not Detected [facility] Comment: Methodology: Health Services Information Specialist-Mediated Amplification This assay detects E6/E7 viral messenger RNA (mRNA) from 14 high-risk HPV types (16,18,31,33,35,39,45,51,52,56,58,59,66,68). The analytical performance characteristics of this assay have been determined by [employer]. The modifications have not been cleared or approved by the FDA. This assay has been validated pursuant to the CLIA regulations and is used for clinical purposes. For additional information, please refer to http://education.[employer]/faq/LOQ882e4 (This link if provided for information/ educational [...] Final Result [facility] [address] from Last 3 Months or Most Recently Relevant to Health Maintenance Insurance [facility] < 65 Care Teams Lithography Contact Worker Relationship Specialty Start Date End Date Name, MD Bobby [address] [facility] [place] [address] PCP - General Family Medicine 06/01/15 Eloina 05/13/24
--- OUTSIDE RECORDS SUMMARY | 2025-01-30 12:00 | XMS_ITS | Encounter Summary ---
Author Organization [employer] Address [address] [place] [address] Care Team Providers Care Lay Out And Detail Drafter Name Role Phone Name, Bobby GRADY Primary Care Provider [phone] Encounter Details Date Type Department Care Team (Latest Contact Info) Description 05/04/2024 Lab Requisition [facility] - Main Lab [address] [place] [address] Yared Weaver MD [address] [place] [address], [phone] Atherosclerotic heart disease of [place] coronary artery without angina pectoris Social History [...] 5:05 AM EST Atherosclerotic heart disease of [place] coronary artery without angina pectoris BASIC METABOLIC PANEL Routine 05/05/2024 5:05 AM EST Atherosclerotic heart disease of [place] coronary artery without angina pectoris documented in this encounter Results * (ABNORMAL) Basic metabolic panel (05/05/2024 5:05 AM EST) Sodium 144 133 - 145 mmol/L LAB CHEMISTRY METHOD 05/05/2024 11:[address] [facility] Potassium 3.9 3.5 - 5.5 mmol/L LAB CHEMISTRY METHOD 05/05/2024 11:28 AM [facility] Chloride 103 96 - 110 mmol/L LAB CHEMISTRY METHOD 05/05/2024 11:28 AM [facility] CO2 34(H) 21 - 32 mmol/L LAB CHEMISTRY METHOD 05/05/2024 11:28 AM [facility] Anion Gap 7 3 - 11 LAB CHEMISTRY METHOD 05/05/2024 11:28 AM [facility] Glucose 101(H) 70 - 100 mg/dL LAB CHEMISTRY METHOD 05/05/2024 11:28 AM [facility] BUN 19 5 - 25 mg/dL LAB CHEMISTRY METHOD 05/05/2024 11:28 AM [facility] Creatinine 0.71 0.50 - 1.10 mg/dL LAB CHEMISTRY METHOD 05/05/2024 11:28 AM [facility] eGFR 95 >=60 mL/min/1. 73m2 LAB CHEMISTRY METHOD 05/05/2024 11:28 AM [facility] Comment:Calculation based on the Chronic Kidney Disease Epidemiology Collaboration (CKD-EPI) equation refit without adjustment for race. BUN/Creatinine Ratio 26.8 LAB CHEMISTRY METHOD 05/05/2024 11:28 AM [facility] Calcium 8.0(L) 8.5 - 10.5 mg/dL LAB CHEMISTRY METHOD 05/05/2024 11:28 AM [facility] Blood Venous blood specimen / Unknown Venipuncture / Unknown 05/05/2024 5:05 AM EST 05/05/2024 9:37 AM EST us Yared Weaver MD LAB BLOOD ORDERABLES Final Resul t [facility] [address] [place] [address], * (ABNORMAL) Complete blood count (05/05/2024 5:05 AM EST) [facility] WBC 13.8(H) 4.8 - 10.8 K/mcL LAB HEMETOLOGY METHOD 05/05/2024 11:24 AM [facility] RBC 5.30(H) 3.80 - 4.80 M/mcL LAB HEMETOLOGY METHOD 05/05/2024 11:24 AM [facility] Hemoglobin 15.0 11.5 - 16.0 g/dL LAB HEMETOLOGY METHOD 05/05/2024 11:24 AM [facility] Hematocrit 47.2(H) 35.0 - 47.0 % LAB HEMETOLOGY METHOD 05/05/2024 11:24 AM [facility] MCV 89.6 79.0 - 98.0 FL LAB HEMETOLOGY METHOD 05/05/2024 11:24 AM [facility] MCH 28.5 27.0 - 32.0 pcg LAB HEMETOLOGY METHOD 05/05/2024 11:24 AM [facility] MCHC 31.8(L) 32.0 - 37.0 g/dL LAB HEMETOLOGY METHOD 05/05/2024 11:24 AM [facility] RDW 15.9(H) 11.0 - 15.0 % LAB HEMETOLOGY METHOD 05/05/2024 11:24 AM [facility] Platelets 184 130 - 400 K/mcL LAB HEMETOLOGY METHOD 05/05/2024 11:24 AM [facility] MPV 12.0(H) 7.0 - 11.0 FL LAB HEMETOLOGY METHOD 05/05/2024 11:24 AM [facility] NRBC 0.0 <1.0 % LAB HEMETOLOGY METHOD 05/05/2024 11:24 AM [facility] NRBC Absolute 0.00 <0.10 K/mcL LAB HEMETOLOGY METHOD 05/05/2024 11:24 AM EST [facility] Blood Venous blood specimen / Unknown Venipuncture / Unknown 05/05/2024 5:05 AM EST 05/05/2024 9:37 AM EST us Yared Weaver MD LAB BLOOD ORDERABLES Final Resul t [facility] [address] [place] [address], documented in this encounter Visit Diagnoses Diagnosis Atherosclerotic heart disease of [place] coronary artery without angina pectoris documented in this encounter Care Teams Lay Out And Detail Drafter Relationship Specialty Start Date End Date Name, MD Bobby [address] [place], [place] PCP - General Internal Medicine 04/01/18 documented as of this encounter
--- OUTSIDE RECORDS SUMMARY | 2025-01-30 12:00 | XMS_ITS | Encounter Summary ---
Author Organization [employer] Address [address] [place] [address] Care Team Providers Care Pianos And Organs Salesperson Name Role Phone Name, Bobby GRADY Primary Care Provider Encounter Details Date Type Department Care Team (Late st Contact Info) Description 05/08/2024 Lab Requisition [facility] - Main Lab [address] [place] [address] Yared Weaver MD [address] [place] [address], [phone] Hypothyroidism, unspecified Social History Tobacco Use [...] LAB CHEMISTRY METHOD 05/09/2024 1:03 PM EST [facility] Blood Venous blood specimen / Unknown Venipuncture / Unknown 05/09/2024 5:33 AM EST 05/09/2024 11:27 AM EST us Yared Waever MD LAB BLOOD ORDERABLES Final Resul t [facility] [address] [place] [address], documented in this encounter Visit Diagnoses Diagnosis Hypothyroidism, unspecified documented in this encounter Care Teams Pianos And Organs Salesperson Relationship Specialty Start Date End Date Name, MD Bobby [address] [place], [place] PCP - General Internal Medicine 04/01/18 documented as of this encounter
--- OUTSIDE RECORDS SUMMARY | 2025-01-30 12:00 | XMS_ITS | Encounter Summary ---
Author Organization [employer] Address [address] [place] [address] [address] [address] Care Team Providers Care Windows Consultant Name Role Phone NameBobby MD Primary Care Provider Inga Magaña PharmD Unavailable Reason for Visit * Reason Onset Date Comments Referral 04/23/2022 Encounter Details Date Type Department Care Team ([facility] st Contact Info) Description 04/23/2022 Telephone [facility] MEDICINE [address] [place] [address] NameBobby MD [address] [place] [address] Referral Social History Tobacco Use Types Packs/Day [...] Pt wants referral to see Gastroenterology in [facility], as pt has hx of colon cancer and has been waiting 10 years for colonoscopy. Pt stated June at [facility] has an apptset up for pt on May 13 and needs referral placed before then. Pt verbalized understanding and denied having any further questions or concerns at this time. * Telephone Encounter - Octavio Mg - 04/23/2022 11:46 AM EST Tc from pt requesting an referral to see an gastroenterology at [facility] Please contact pt at [phone] documented in this encounter Plan of Treatment Upcoming Encounters Date Type Department Care Team (Late st Contact Info) Description 02/10/2025 9:30 AM EST Telemedicine [facility] MEDICINE [address] [place] [address] Skye Melton RN 03/14/2025 10:00 AM EST Office Visit [facility] OPTOMETRY [address] [place] [address] Abbey Deng, OD [address] [place] [address] documented as of this encounter Visit Diagnoses Diagnosis History of colon polyps- Primary Family history of colon cancer Family history of malignant neoplasm of gastrointestinal tract documented in this encounter Additional Health Concerns Assessment Noted Time PHQ-9 Depression Total Score: 0 03/11/20 22 11:47 AM EST documented as of this encounter Care Teams Windows Consultant Relationship Specialty Start Date End Date Name, MD Bobby [address] [place] [phone] PCP - General Family Medicine 06/01/15 Inga Magaña PharmD [address] [place] [phone] Pharmacist Internal Medicine 01/07/23 09/29/23 Eloina 05/13/24 documented as of this encounter
--- OUTSIDE RECORDS SUMMARY | 2025-01-30 12:00 | XMS_ITS | Encounter Summary ---
Author Organization [employer] Address [address] [facility] [address] [place] [address] Care Team Providers Care Grooming Assistant Name Role Phone Name, Bobby GRADY Primary Care Provider [phone] Inga Magaña PharmD Unavailable [phone] Reason for Visit * Reason Comments Med Change Request Encounter Details Date Type Department Care Team ([facility] st Contact Info) Description 06/09/2023 Refill [facility] MEDICINE [address] [place] [address] Name, MD Bobby [address] [place] [address] Social History Tobacco Use Types Packs/Day Years [...] Info) Description 02/10/2025 9:30 AM EST Telemedicine [facility] MEDICINE [address] [place] [address] Skye Melton RN 03/14/2025 10:00 AM EST Office Visit [facility] OPTOMETRY [address] [place] [address] Abbey Deng, OD [address] [place] [address] documented as of this encounter Goals Goal Patient Goal Type Associated Problems Recent Progress Patient-Stated? Author Smoking cessation General No Inga Magaña PharmD documented as of this encounter Visit Diagnoses Not on filedocumented in this encounter Additional Health Concerns Assessment Noted Time PHQ-9 Depression Total Score: 0 03/11/20 22 11:47 AM EST documented as of this encounter Care Teams Grooming Assistant Relationship Specialty Start Date End Date Name, MD Bobby [address] [place] [id number] PCP - General Family Medicine 06/01/15 Inga Magaña PharmD [address] [place] [phone] Pharmacist Internal Medicine 01/07/23 09/29/23 [place] 05/13/24 documented as of this encounter
--- OUTSIDE RECORDS SUMMARY | 2025-01-30 12:00 | XMS_ITS | Clinical Summary ---
Author Organization [address] Address [address] [place] [phone] Phone Care Team Providers Care Supervisor [employer] Name Role Phone Name, Bobby GRADY Primary Care Provider [phone] Surgical History Surgery Date Site/Laterality Comments CHOLECYSTECTOMY PROCEDURE: [place] CHOLECYSTECTOMY OTHER SURGICAL HISTORY PROCEDURE: HISTORY OTHER; COMMENT: Cardiac stent KIDNEY STONE SURGERY PROCEDURE: GA NEPHROLITHOTOMY REMOVAL CALCULUS BREAST LUMPECTOMY Right PROCEDURE: HISTORICAL BREAST LUMPECTOMY; COMMENT: benign Medical History Medical History Date Comments Coronary atherosclerosis of unspecified type of vessel, cachil dehe or graft 07/07/2011 DX:Coronary atherosclerosis of unspecified type of vessel, cachil dehe or graft Hypertension 07/07/2011 DX:Hypertension Historical Medical DX 07/07/2011 DX:Hyperli pidemia LDL goal < 70 DM2 (diabetes mellitus, type 2) ([facility] V24, [facility] V28) 07/07/2011 DX:DM2 (diabetes mellitus, type 2) ([facility]) Tobacco abuse 07/07/2011 DX:Tobacco abuse Allergy-induced asthma 07/07/2011 DX:Allerg y-induced asthma Family History Medical History Relation Name Comments Breast cancer Aunt 1 maternal aunt, at 60 Breast cancer Aunt 2 paternal aunt, at 60 Other: promotions team leader ca Aunt 2 Colon cancer Brother at [...] 8:21 AM EST Atherosclerotic heart disease of cachil dehe coronary artery without angina pectoris from Last 3 Months or Most Recently Relevant to Health Maintenance Results * (ABNORMAL) Basic metabolic panel (05/12/2024 8:21 AM EST) Sodium 143 133 - 145 mmol/L LAB CHEMISTRY METHOD 05/12/2024 11:[address] [facility] Potassium 3.6 3.5 - 5.5 mmol/L LAB CHEMISTRY METHOD 05/12/2024 11:22 AM EST [facility] Chloride 109 96 - 110 mmol/L LAB CHEMISTRY METHOD 05/12/2024 11:22 AM EST [facility] CO2 31 21 - 32 mmol/L LAB CHEMISTRY METHOD 05/12/2024 11:22 AM EST [facility] Anion Gap 3 3 - 11 LAB CHEMISTRY METHOD 05/12/2024 11:[address] [facility] Glucose 95 70 - 100 mg/dL LAB CHEMISTRY METHOD 05/12/2024 11:22 AM EST [facility] BUN 21 5 - 25 [...] Resul t [facility] [address] [place] [address], from Last 3 Months or Most Recently Relevant to Health Maintenance Insurance [facility] Member Subscriber Plan / Payer (Ef fective 2022-Present) Name:Marita Lawrence Relation to Subscriber:Self Name:Marita Lawrence Payer ID:[id number] Group ID:[id number] Type:Not on file Address: [facility] [place] [address] Care Teams Supervisor [employer]ers And Emulsifiers Relationship Specialty Start Date End Date Name, MD Bobby [address] [place], [place] PCP - General Internal Medicine 04/01/18
--- OUTSIDE RECORDS SUMMARY | 2025-01-30 12:00 | XMS_ITS | Encounter Summary ---
Author Organization [employer] Address [address] [facility] 7[address] [place] [address] Care Team Providers Care R D Internship Name Role Phone Name, Bobby GRADY Primary Care Provider [phone] Inga Magaña PharmD Unavailable [phone] Reason for Visit * Reason Comments Med Refill Encounter Details Date Type Department Care Team ([facility] st Contact Info) Description 04/28/2023 Refill [facility] MEDICINE [address] [place] [address] Name, MD Bobby [address] [place] [address] Social History Tobacco Use Types Packs/Day Years [...] Info) Description 02/10/2025 9:30 AM EST Telemedicine [facility] MEDICINE [address] [place] [address] Skye Melton RN 03/14/2025 10:00 AM EST Office Visit [facility] OPTOMETRY [address] [place] [address] Abbey Deng, OD [address] [place] [address] documented as of this encounter Goals Goal Patient Goal Type Associated Problems Recent Progress Patient-Stated? Author Smoking cessation General No Inga Magaña PharmD documented as of this encounter Visit Diagnoses Not on filedocumented in this encounter Additional Health Concerns Assessment Noted Time PHQ-9 Depression Total Score: 0 03/11/20 22 11:47 AM EST documented as of this encounter Care Teams R D Internship Relationship Specialty Start Date End Date Name, MD Bobby [address] [place] [id number] PCP - General Family Medicine 06/01/15 Inga Magaña PharmD [address] [place] [phone] Pharmacist Internal Medicine 01/07/23 09/29/23 [place] 05/13/24 documented as of this encounter
--- OUTSIDE RECORDS SUMMARY | 2025-01-30 12:00 | XMS_ITS | Data Portability ---
Author Organization [facility], Main Office Address [address] [facility] [address] [place] [address] Care Team Providers Care Peer Tutor Name Role Phone [facility] OTHER NAME, MOHINI Primary Care Provider Assessment Encounter Date Assessment Date Assessment LastModified by Organization Details LastModified Time 05/03/2024 05/03/2024 Labs 04/27:Na 129-K 4.0-Bun 38-Cr 0.7-wbc 15.9-hgb 15.2- hct 45-plt 240 [email or web address] Not available 05/03/2024 18:08:16 05/05/2024 05/05/2024 Labs 04/27:Na 129-K 4.0-Bun 38-Cr 0.7-wbc 15.9-hgb 15.2- hct 45-plt 240 [email or web address] Not available 05/05/2024 12:09:46 05/11/2024 05/11/2024 Labs 05/05: Na 144-K 3.9-Bun 19- Cr 0.7-wbc 13.8-hgb 15-hct 47.2 Labs 04/27:Na 129-K 4.0-Bun 38-Cr 0.7-wbc 15.9-hgb 15.2- hct 45-plt 240 Not available 05/11/2024 16:44:46 05/12/2024 05/12/2024 45 minutes spent on coordination of discharge. [email or web address] Not available 05/12/2024 11:03:36 Plan of Treatment [...] Address Organization Details Recorded Time Muscle weakness 97374934 Active 2024 Not Available [facility] 5 09:55:06 Unsteady when standing 148622305 Active 2024 Not Available [facility] 5 09:56:09 Difficulty walking 247875374 Active 2024 Not Available [facility] 5 09:56:40 Uncomplicat ed asthma 855722917 Active 2024 Not Available [facility] 5 14:07:57 Old myocardial infarction 6850865 Active 2024 Not Available [facility] 5 14:08:17 Obstructive sleep apnea syndrome 83526310 Active 2024 Not Available [facility] 5 14:09:00 Disorder of nervous system due to type 2 diabetes mellitus 336963513 Active 2024 Not Available [facility] 5 14:09:32 Acute exacerbatio n of chronic obstructive pulmonary disease 567800219 Active 2024 Not Available [facility] 5 13:13:30 Pneumonia caused by Influenza A virus 493086520 Active 2024 Not Available [facility] 5 12:06:26 Pneumonia caused by respiratory syncytial virus 628100562 Active 2024 Not Available [facility] 5 12:06:27 Type 2 diabetes mellitus 61998543 Active 2024 Not Available [facility] 5 12:09:46 Essential hypertensio n 71522113 Active 2024 Not Available [facility] 5 12:10:17 Hypothyroid ism 79782393 Active 2024 Not Available [facility] 5 12:10:48 Gastroesoph ageal reflux disease without esophagitis 239850416 Active 2024 Not Available [facility] 5 12:11:49 Primary gout 13319541 Active 2024 Not Available [facility] 5 12:11:50 Chronic obstructive pulmonary disease 82865502 Active 2024 GEETA KWOK [address] [place] [address], [facility] [address], [place], [address] , [facility] 5 14:52:55 Leukocytosi s 977296306 Active 2024 from steriod use NOVA KWOK[address], [address], [place], [address] , [facility] 5 14:54:46 Coronary arterioscle rosis 12419480 Active [address], [address], [place], [address] , [facility] 5 15:05:30 Gout 58008011 Active 2024 GEETA KWOK [address] [place] [address], [facility] [address], [place], [address] , [facility] 5 15:09:53 Allergic rhinitis 73666289 Active [address], [facility] [address], [place], [address] , [facility] 5 15:17:53 Smoker 75605926 Active 2024 MIGUE BRISENO [address], [facility] [address], [place], [address] , [facility] 5 15:27:03 Problem Notes None recorded. Medical Equipment None Reported. Allergies Allergen ID Allergen Name Allergen Category Reaction Reaction Severity Criticality Documentation Date Start Date Code Code System Note Provider Name and Address Organization Details Recorded Time 68652 Product containin g angiotens in-conver ting enzyme inhibitor (product) medicatio n angioedem a severe Not available 04/28/20242024 18846 009 SNOMED Not Available [facility] 15:23:36 73466 enalapril Not available Not available Not available high 04/28/20242017 3827 RxNorm Other react ion(s ): Anaph ylaxi s Chiquita Guardado MD [address] [place] [address], [address], [place], [address], [facility] 5 17:30:53 32695 metformin medicatio n Not available Not available Not available 04/28/20242024 6809 RxNorm Not Available [facility] 15:22:33 19808 hydromorp cb medicatio n Not available Not available high 04/28/20242022 3423 RxNorm Other react ion(s ): TINGL ING, PT DOES NOT LIKE THE FEELI MED GIVES HER Chiquita Guardado MD [address] [facility], [address], [place], [address], [employer] 5 17:31:40 80802 azithromy josephine medicatio n Not available Not available Not available 05/03/2024 91029 RxNorm Chiquita Guardado MD [address] [place] [address], [address], [place], [address], [facility] 5 17:30:27 27785 erythromy josephine medicatio n anaphylax is Not available high 05/03/20242010 4053 RxNorm Other react ion(s ): Hives /Urti caria , pustu les over entir e body, Unkno wn Other React ion(s ): Unkno wn Chiquita Guardado MD [address] [place] [address], [address], [place], [address], [facility] 5 17:31:13 08259 lisinopri l medicatio n Not available Not available Not available 05/03/2024 58099 RxNorm Chiquita Guardado MD [address] [place] [address], [address], [place], [address], [place] [employer] [facility] 5 17:31:53 17032 metoprolo l Not available Not available Not available Not available 05/03/2024 6918 RxNorm Chiquita Guardado MD [address] [place] [address], [address], [place], [address], [facility] [employer] 5 17:32:14 Medications Name Sig Start Date [...] Not Available Not Available No t Available PfenexTouch Ultra Test strips USE DIRECTED TO TEST [...] Updated DateTime 5 165.1 cm 27.1 kg/m2 08824.1 2 g 78 /min 18 /min 97.5 [degF] 95 % 95 % 124/62 mm[Hg] Chiquita Guardado MD [address] [facility] [address], [place], [address], [facility] 5 17:39:40 Date Recorded Body height Respiratory rate Oxygen saturation Oxygen saturation in Arterial blood by Pulse oximetry Provider Name and Address Organization Details Last Updated DateTime 05/04/2024 165.1 cm 20 /min 95 % 95 % GEETA KWOK [address] [facility] [address], [place], [address], [facility] 5 16:47:12 Date Recorded Body height Heart rate Respiratory rate Body temperature Oxygen saturation Oxygen saturation in Arterial blood by Pulse oximetry Systolic And Diastolic Provider Name and Address Organization Details Last Updated DateTime 5 165.1 cm 86 /min 18 /min 97.5 [degF] 96 % 96 % 129/78 mm[Hg] JOHAN VU NP [address] [facility] [address], [place], [address], [facility] 5 12:09:17 Date Recorded Body height Body temperature Respiratory rate Heart rate Oxygen saturation Oxygen saturation in Arterial blood by Pulse oximetry Provider Name and Address Organization Details Last Updated DateTime 5 165.1 cm 97.4 [degF] 20 /min 72 /min 95 % 95 % MIGUE BRISENO, BLIND CLE[employer]ER [address] [facility], [address], [place], [address], [facility] 5 16:23:28 Date Recorded Body height Heart rate Respiratory rate Body temperature Oxygen saturation Oxygen saturation in Arterial blood by Pulse oximetry Systolic And Diastolic Provider Name and Address Organization Details Last Updated DateTime 5 165.1 cm 80 /min 20 /min 97.4 [degF] 95 % 95 % 155/65 mm[Hg] JOHAN VU NP [address] [facility], [address], [place], [address], [facility] 5 10:33:52 Social History Question Answer Notes LastModified by Organization Details LastModified Time Tobacco Smoking Status Former Smoker quit 2017, then started again, now none x 2 months. Chiquita Guardado MD [address] [facility], [address], [place], [address], [facility] 05/03/2024 22:40:28 Do You Have An Advance Directive? Yes Information not available 05/01/2024 What Is Your Code Status? Full Code Information not available 05/01/2024 Where Do You Live? [facility] With Information not available 05/03/2024 Legal Guardian? No Informati on not available 05/03/2024 Do You Have A Medical Power Of Physician Neonatology? Yes Information not available 05/03/2024 What Was [...] Recorded Time Tdap 0 completed Samuel Felipe-Malik [facility] 04/29/2024 12:14:00 Tdap 3 completed Samuel Felipe-Malik [facility] 04/29/2024 12:14:06 Pneumococcal conjugate PCV 13 3 completed Samuel Felipe-Malik [facility] 04/29/2024 12:14:27 pneumococcal polysaccharide PPV23 0 completed Samuel Felipe-Malik [facility] 04/29/2024 12:14:43 influenza, unspecified formulation 1 completed Samuel [employer] 04/29/2024 12:15:03 influenza, unspecified formulation 2 completed Samuel [employer] 04/29/2024 12:15:20 influenza, unspecified formulation 3 completed Samuel Felipe-Malik [facility] 04/29/2024 12:15:25 influenza, unspecified formulation 4 completed Samuel Felipe-Malik [facility] 04/29/2024 12:15:30 SARS-COV-2 (COVID-19) vaccine, UNSPECIFIED 1 completed Samuel Felipe-Malik [facility] 04/29/2024 12:16:07 SARS-COV-2 (COVID-19) vaccine, UNSPECIFIED 1 completed Samuel Felipe-Malik [facility] 04/29/2024 12:16:12 SARS-COV-2 (COVID-19) vaccine, UNSPECIFIED 1 completed Samuel Chappell [facility] 04/29/2024 12:16:16 SARS-COV-2 (COVID-19) vaccine, UNSPECIFIED 2 completed Samuel Chappell [facility] 04/29/2024 12:16:21 SARS-COV-2 (COVID-19) vaccine, UNSPECIFIED 2 completed Samuel Chappell [facility] 04/29/2024 12:16:27 SARS-COV-2 (COVID-19) vaccine, UNSPECIFIED 3 completed Samuel Ta [facility] 04/29/2024 12:16:41 SARS-COV-2 (COVID-19) vaccine, UNSPECIFIED 4 completed Samuel Chappell [facility] 04/29/2024 12:16:51 zoster, unspecified formulation 3 completed Samuel Chappell [facility] 04/29/2024 12:17:13 zoster, unspecified formulation 3 completed [facility] 04/29/2024 12:17:19 Past Encounters Encounter ID Performer Location Encounter Start Date Encounter Closed Date Diagnosis/Indication Diagnosis SNOMED-CT Code Diagnosis ICD10 Code Diagnosis IMO Codes Diagnosis Note [id number] GEETA KWOK [facility] [address] [place] [address] 04/29/2024 10:45:26 05/03/2024 09:36:15 Chronic obstructive pulmonary disease 60809494 J44.9 2/ RSV/Influe nzaon presentati on O2 sats as low as 83 % and tachypneic 26tx inpatient with IV steroids, neb tx and abxcont doxycyclin e BID for 2 more dayscont on neb tx prn, albuterol inhaler prncont trelegy, respimat, dupixent. roflumilas tnow on prednisone taper , resume 2.5 mg when tapercompl etedmonito r resp status. Type 2 asa betes mellitus 59135097 E11.9 hx of neuropathy On trulicity, Insulin SSC, lyrica, jardiancec ont lantus at hsrobaxin prn for neuropathy painmonito r BGL TID Hypothyroidism 34196816 E03.9 continue on levothyrox inemonitor tsh prn Coronary arteriosclerosis 06195656 I25.10 HX of HLD, HTNon statincont on asamonitor for cardiac sx Essential hypertension 83678334 I10 cont on coreg dailymonit or BP Gout 16676008 M10.9 cont allopurino l dailyfollo w uric acid level prn Smoker 92551598 F17.200 reports that she has not smoked in 1 monthnow on nicotine patch 21 mgprovide support for cessation Hyperlipidemia 96830988 E78.5 cont atorvastat inmonitor labs prn Gastroesop hageal reflux disease without esophagitis 591570504 K21.9 cont omeprazole dailymonit or GI sx Allergic rhinitis 969340 04 J30.9 cont on fluticason e, montelukas t, cetirizine Leukocytosis 664690832 D 72.829 chronic from chronic steriod usefollow labs Low back pain 040281443 M54.50 cont lido patch qdpercocet prnon robaxin for neuropathy as well [id number] Chiquita Guardado MD [facility] [address] [place] [address] 05/03/2024 17:29:21 05/16/2024 12:42:00 Chronic obstructive pulmonary disease 08607655 J43.8 S/P several recent exacerbati ons, now [...] as planned. Type 2 asa betes mellitus 97576311 E11.42 Some high sugars since here, likely due to prednisone , expect improvemen t as taper continues. Continue Lantus 35U BID, Trulicity 1.5 mg weekly, Jardiance 10 mg qd, and SSI.Contin ue Lyrica 100 mg TID and methocarbo mol 750 mg q 8 hrs prn for neuropathy pain.Monit or fingerstic ks TID and HgA1C as outpt. Hypothyroidism 16759612 E03.8 Continue on levothyrox ine 112 mcg qdMonitor TSH as outpt. Coronary arteriosclerosis 49003036 I25.10 No recent sxs.Contin ue atorvastat in 80 mg qd, carvedilol 6.25 mg BID (hold for SBP<90), and ASA 81 mg qd.Monitor for sxs.F/U with cardio as planned. Essential hypertension 99687842 I10 Good control on meds as above.Chantel tor BP and labs. Gout 57680817 M10.09 No current sxs.Contin ue allopurino l 100 mg qdMonitor for flare. Smoker 18436317 F17.200 No longer smoking since recent hospitaliz ations.Con tinue nicotine patch 21 mg qd, taper as outpt.Cont inue to encourage abstinence . Hyperlipidemia 44414594 E78.49 Continue atorvastat in 80 mg qdMonitor labs as outpt. Gastroesop hageal reflux disease without esophagitis 098961546 K21.9 No current sxs.Contin ue omeprazole qdMonitor GI sxs Allergic rhinitis 625848 04 J30.89 Continue fluticason e nasal spray, montelukas t, and cetirizine Monitor sxs. Leukocytosis 302214717 D 72.828 Thought to be due to prednisone .Monitor Low back pain 956254524 M54.59 Under fair control.Co ntinue robaxin and Lyrica as above and lidocaine patch qd, and Percocet 7.5/325 mg q 6 hrs prn.PT/OT as above. Intertrigo 42514617 L30. 4 Continue diflucan 150 mg qod x 3 doses and will start nystatin cream BID.Monito r for healing. Asthenia 55392947 R53.1 Very deconditio bernice.Needs PT/OT for strengthen ing, balance, gait training, safety and function.C ontinue fall precaution s.Monitor for safety. [id number] GEETA KWOK [facility] [address] [place] [address] 05/04/2024 11:59:27 05/16/2024 14:09:43 Viral pharyngitis 3717931 B34.9 throat and tonsil noted with erythema and slight swelling, not exudateswi ll add lozenges take 1 prn Q2 and warm water and salt rinses for comfort qid prn Intertrigo 94427105 L30. 4 acute onset over 1-2 dayserythe matous and scattered dry patchy rash noted covering vast majority of left and right buttockscu rrently rx diflucan qod for 3 dosesdue to pruritis will add clotrimazo le/beta BID for 10 daydiscuss ed with nursing will re eval in 2 days [id number] JOHAN VU NP [facility] [address] [place] [address] 05/05/2024 12:08:09 05/10/2024 11:42:42 Chronic obstructive pulmonary disease 61928231 J44.9 2/ RSV/Influe nzaDoing betterWean ed off [id number] off prednisone .Doxy completed. Continue nebs and inhalers.C ombivent dose currently 2 inh bid, not typical but will not change as med managed by Pulmonolog ist.Monito r Type 2 asa betes mellitus 81036100 E11.9 BS borderline low in am and at lunchStill on prednisone taper.Disc ussed with pt.Plan -Continue trulicity and jardiance and SSIReduce lantus to 25 units q HS, continue 35 units in amAdd large portions to diet, refer to therapeutic assistant per pt. request, and assure HS snack (manuela crackers and PB on dinner tray)Monit or closely and adjust meds as needed. Hypothyroidism 26138543 E03.9 continue on levothyrox inemonitor tsh prn Coronary arteriosclerosis 82055480 I25.10 HX of HLD, HTNon statin, coreg, ASAmonitor for cardiac sx Essential hypertension 23895656 I10 cont on coreg dailymonit or BP Gout 32882473 M10.9 cont allopurino l dailyfollo w uric acid level prn Smoker 39839308 F17.200 reports that she has not smoked in 1 monthnow on nicotine patch 21 mgprovide support for cessation Hyperlipidemia 53314480 E78.5 cont atorvastat inmonitor labs prn Gastroesop hageal reflux disease without esophagitis 680683093 K21.9 cont omeprazole daily - came in on this doseUnsure of baseline, but will continue this dose for now, mahesh. with higher doses of prednisone .Consider dose taper when more stable and if stays LTC.monito r GI sx Allergic rhinitis 943124 04 J30.9 cont on fluticason e, montelukas t, cetirizine Leukocytosis 306694919 D 72.829 chronic from chronic steriod use - improving. 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 [id number] MIGUE BRISENO, BLIND CLEANER [facility] [address] [place] [address] 05/11/2024 13:31:15 05/12/2024 14:06:40 Type 2 diabetes mellitus 45818537 E11.9 BS borderline low in am and at lunchStill on prednisone taper.Cont inue trulicity and jardiance and SSIReduce lantus to 25 units q HS, continue 35 units in amMonitor closely and adjust meds as needed. Dermal mycosis 41253365 B36.9 Breast folds, buttocksCo ntinue diflucan and topical antifungal /steroid cream.Keep areas clean and dryMonitor closely. Gastroesop hageal reflux disease without esophagitis 406083324 K21.9 cont omeprazole daily - came in on this doseUnsure of baseline, but will continue this dose for now, mahesh. with higher doses of prednisone .Consider dose taper when more stable and if stays LTC.monito r GI sx Chronic ob structive pulmonary disease 15719793 J44.9 2/2 RSV/Influe nzaDoing betterWean ed off N2Zkmytyhr off prednisone .Doxy completed. Continue nebs and inhalers.C ombivent dose currently 2 inh bid, not typical but will not change as med managed by [facility].Monito r Leukocytosis 304851584 D 72.829 chronic from chronic steriod use - improving. follow labs Essential hypertension 40890487 I10 cont on coreg dailymonit or BP Smoker 02904990 F17.200 reports that she has not smoked in 1 monthnow on nicotine patch 21 mgprovide support for cessation Pressure i njury of coccygeal region of back stage II 0165016107 2605440 L89.152 patient reporting coccyx painfollow ed by wound NPreiterat ed [employer] recommenda tions to Turn, reposition & offload Q2 hours & PRN to aid in wound healing. Encourage appropriat e dietary supplement ation to aid in wound healing. [id number] JOHAN VU NP [facility] [address] [place] [address] 05/12/2024 10:32:45 05/20/2024 10:27:09 Type 2 diabetes mellitus 36564361 E11.9 BS borderline low a few weeks ago, lantus reduced to 35 units q am, 25 units q hs.Remains on trulicity, jardiance, and lispro SSI.BS improved on reduced dose of lantus.Of note, prednisone taper ending 05/15.Pt. will continue to monitor BS at home and adjust insulin as needed. Dermal mycosis 46903934 B36.9 Breast folds, buttocks; now improving. Completed diflucan.M ay continue topical antifungal /steroid cream.Keep areas clean and dryMonitor closely. Gastroesop hageal reflux disease without esophagitis 878466583 K21.9 cont omeprazole daily Chronic ob structive pulmonary disease 73292567 J44.9 2/ RSV/Influe nzaResolve d.Weaned off S2Emkxxifv off prednisone .Doxy completed. Continue nebs and inhalers.M onitor Leukocytosis 411290987 D 72.829 chronic from chronic steriod use - improving. follow labs as outpt. Hypothyroidism 81390319 E03.9 continue on levothyrox inemonitor tsh prn Coronary arteriosclerosis 99560082 I25.10 HX of HLD, HTNon statin, coreg, ASAmonitor for cardiac sx Essential hypertension 82875368 I10 cont on coreg dailymonit or BP Gout 48690824 M10.9 cont allopurino l dailyfollo w uric acid level prn Smoker 35976617 F17.200 reports that she has not smoked in 1 monthnow on nicotine patch 21 mgprovide support for cessation - wishes to continue to not smoke upon d/c home. Hyperlipidemia 23376906 E78.5 cont atorvastat inmonitor labs prn Allergic rhinitis 633192 04 J30.9 cont on fluticason e, montelukas t, cetirizine Low back pain 263025515 M54.50 cont lido patch qdpercocet prnon robaxin for neuropathy as well Health Concerns Section Related Observation LastModified by Organization Detai ls LastModified Time None Recorded Concern Status LastModified by Organization Details LastModified Time None Recorded Advance Directives Directive Y: Payers Insurance Date Sequence Insurance Name Policy Number Policy Mendez Covered Member ID Mendez Member ID Guarantor Name 05/16/2024 1 [facility] - DOS ON OR AFTER 2022 - MEDICARE ADVANTAGE [place]MEDICARE REPLACEMENT/ADV ANTAGE - PPO) Marita Lawrence [id number] Marita Lawrence 04/29/2024 1 [place] [employer] Marita Ramirez [id number] Marita Lawrence Notes Date Note Type Note [...] with post-op hypothyroidism. Chiquita Guardado MD [address] [facility], [address], [place], [address], [facility] 05/14/2024 17:33:09 5 text/html ROS as [...] dot and spread quickly. GEETA KWOK [address] [facility], [address], [place], [address], [facility] 05/13/2024 16:49:37 5 text/html Marita is [...] snack. She is requesting to see the therapeutic assistant.She then shows me the rash on her [...] with post-op hypothyroidism. JOHAN VU, MANDO [address] [facility], [address], [place], [address], [facility] 05/05/2024 12:42:06 5 text/html ROS as [...] is nio acute concerns. GEETA KWOK [address] [facility], [address], [place], [address], [facility] 05/11/2024 16:45:23 5 text/html Marita is [...] with post-op hypothyroidism. JOHAN VU NP [address] [facility], [address], [place], [address], [facility] 05/20/2024 10:22:41 OBGyn Episode No OBEpisode recorded.
--- OUTSIDE RECORDS SUMMARY | 2025-01-30 12:00 | XMS_ITS | Encounter Summary ---
Author Organization [facility] Address [address] [place] [address] [address] [place] [address] Care Team Providers Care Sliver Handler Name Role Phone Name, Bobby GRADY Primary Care Provider [phone] Inga Magaña PharmD Unavailable Reason for Visit * Reason Comments Med Refill Encounter Details Date Type Department Care Team (Late st Contact Info) Description 05/15/2022 Refill [facility] [address] [place] [address] Name, MD Bobby [address] [place] [address] Seasonal allergic rhinitis, unspecified trigger (Primary Dx) [...] [facility] [address] [place] [address] Skye Melton, RN 03/14/2025 10:00 AM EST Office Visit [facility] [address] [place] [address] Ish Abbey, OD [address] [place] [address] documented as of this encounter Visit Diagnoses Diagnosis Seasonal allergic rhinitis, unspecified trigger- Primary documented in this encounter Additional Health Concerns Assessment Noted Time PHQ-9 Depression Total Score: 0 03/11/20 22 11:47 AM EST documented as of this encounter Care Teams Sliver Handler Relationship Specialty Start Date End Date Name, MD Bobby [address] [place] [address] PCP - General Family Medicine 06/01/15 nIga Magaña PharmD [address] [place] [phone] Pharmacist Internal Medicine 01/07/23 09/29/23 Eloina 05/13/24 documented as of this encounter
--- OUTSIDE RECORDS SUMMARY | 2025-01-30 12:00 | XMS_ITS | Encounter Summary ---
Author Organization [employer] Address [address] [place] [address] [address] [place] [address] Care Team Providers Care Sql Programmer Name Role Phone Name, Bobby GRADY Primary Care Provider [phone] Inga Magaña PharmD Unavailable [phone] Reason for Visit * Reason Comments Med Refill Encounter Details Date Type Department Care Team (Late st Contact Info) Description 10/03/2022 Refill [facility] MEDICINE [address] [place] [address] Name, MD Bobby [address] [place] [address] Lumbar radiculopathy Social History Tobacco Use Types [...] Info) Description 02/10/2025 9:30 AM EST Telemedicine [facility] MEDICINE [address] [place] [address] Skye Melton, RN 03/14/2025 10:00 AM EST Office Visit [facility] OPTOMETRY [address] [place] [address] Abbey Deng, OD [address] [place] [address] documented as of this encounter Visit Diagnoses Diagnosis Lumbar radiculopathy Thoracic or lumbosacral neuritis or radiculitis, unspecified documented in this encounter Additional Health Concerns Assessment Noted Time PHQ-9 Depression Total Score: 0 03/11/20 11:47 AM EST documented as of this encounter Care Teams Sql Programmer Relationship Specialty Start Date End Date Name, MD Bobby [address] [place] [address] PCP - General Family Medicine 06/01/15 Inga Magaña, Lucio [address] [place] [address] Pharmacist Internal Medicine 01/07/23 09/29/23 Eloina 05/13/24 documented as of this encounter
--- OUTSIDE RECORDS SUMMARY | 2025-01-30 12:00 | XMS_ITS | Encounter Summary ---
Author Organization [employer] Address [address] [place] [address] Care Team Providers Care Side Laster Name Role Phone Name, Bobby GRADY Primary Care Provider [phone] Encounter Details Date Type Department Care Team (Latest Contact Info) Description 05/11/2024 Lab Requisition [facility] - Main Lab [address] [place] [address] Yared Weaver MD [address] [place] [address], [phone] Atherosclerotic heart disease of [place] [...] 8:21 AM EST Atherosclerotic heart disease of [place] coronary artery without angina pectoris BASIC METABOLIC PANEL Routine 05/12/2024 8:21 AM EST Atherosclerotic heart disease of [place] coronary artery without angina pectoris documented in this encounter Results * (ABNORMAL) Basic metabolic panel (05/12/2024 8:21 AM EST) Sodium 143 133 - 145 mmol/L LAB CHEMISTRY METHOD 05/12/2024 11:22 AM EST [facility] ([facility]) [facility] Potassium 3.6 3.5 - 5.5 mmol/L LAB CHEMISTRY METHOD 05/12/2024 11:22 AM [facility] Chloride 109 96 - 110 mmol/L LAB CHEMISTRY METHOD 05/12/2024 11:22 AM [facility] CO2 31 21 - 32 mmol/L LAB CHEMISTRY METHOD 05/12/2024 11:22 AM [facility] Anion Gap 3 3 - 11 LAB CHEMISTRY METHOD 05/12/2024 11:22 AM [facility] Glucose 95 70 - 100 mg/dL LAB CHEMISTRY METHOD 05/12/2024 11:22 AM [facility] BUN 21 5 - 25 mg/dL LAB CHEMISTRY METHOD 05/12/2024 11:22 AM [facility] Creatinine 0.80 0.50 - 1.10 mg/dL LAB CHEMISTRY METHOD 05/12/2024 11:22 AM [facility] LAB eGFR 82 >=60 mL/min/1. 73m2 LAB CHEMISTRY METHOD 05/12/2024 11:22 AM [facility] LAB Comment:Calculation based on the Chronic Kidney Disease Epidemiology Collaboration (CKD-EPI) equation refit without adjustment for race. BUN/Creatinine Ratio 26.3 LAB CHEMISTRY METHOD 05/12/2024 11:22 AM [facility] LAB Calcium 8.0(L) 8.5 - 10.5 mg/dL LAB CHEMISTRY METHOD 05/12/2024 11:22 AM [facility] LAB Blood Venous blood specimen / Unknown Venipuncture / Unknown 05/12/2024 8:21 AM EST 05/12/2024 10:56 AM EST us Yared Weaver MD LAB BLOOD ORDERABLES Final Resul t [facility] LAB [address] [place] [address], * (ABNORMAL) Complete blood count (05/12/2024 8:21 AM EST) [facility] WBC 12.5(H) 4.8 - 10.8 K/mcL LAB HEMETOLOGY METHOD 05/12/2024 11:10 AM [facility] RBC 5.10(H) 3.80 - 4.80 M/mcL LAB HEMETOLOGY METHOD 05/12/2024 11:10 AM [facility] LAB Hemoglobin 14.6 11.5 - 16.0 g/dL LAB HEMETOLOGY METHOD 05/12/2024 11:10 AM [facility] LAB Hematocrit 46.7 35.0 - 47.0 % LAB HEMETOLOGY METHOD 05/12/2024 11:10 AM [facility] LAB MCV 91.4 79.0 - 98.0 FL LAB HEMETOLOGY METHOD 05/12/2024 11:10 AM [facility] MCH 28.6 27.0 - 32.0 pcg LAB HEMETOLOGY METHOD 05/12/2024 11:10 AM [facility] LAB MCHC 31.3(L) 32.0 - 37.0 g/dL LAB HEMETOLOGY METHOD 05/12/2024 11:10 AM [facility] LAB RDW 16.3(H) 11.0 - 15.0 % LAB HEMETOLOGY METHOD 05/12/2024 11:10 AM [facility] Platelets 209 130 - 400 K/mcL LAB HEMETOLOGY METHOD 05/12/2024 11:10 AM [facility] MPV 10.7 7.0 - 11.0 FL LAB HEMETOLOGY METHOD 05/12/2024 11:10 AM [facility] LAB NRBC 0.0 <1.0 % LAB HEMETOLOGY METHOD 05/12/2024 11:10 AM [facility] LAB NRBC Absolute 0.00 <0.10 K/mcL LAB HEMETOLOGY METHOD 05/12/2024 11:10 AM EST [facility] LAB Blood Venous blood specimen / Unknown Venipuncture / Unknown 05/12/2024 8:21 AM EST 05/12/2024 10:56 AM EST us Yared Weaver MD LAB BLOOD ORDERABLES Final Resul t [facility] LAB [address] [place] [address], documented in this encounter Visit Diagnoses Diagnosis Atherosclerotic heart disease of [place] coronary artery without angina pectoris documented in this encounter Care Teams Side Laster Relationship Specialty Start Date End Date Name, MD Bobby [address] [place], [place] PCP - General Internal Medicine 04/01/18 documented as of this encounter
--- OUTSIDE RECORDS SUMMARY | 2025-01-30 12:00 | XMS_ITS | Encounter Summary ---
Author Organization [employer] Address [address] [facility] [address] [place] [address] Care Team Providers Care Computer Network Support Specialist Name Role Phone Name, Bobby GRADY Primary Care Provider [phone] Inga Magaña PharmD Unavailable [phone] Reason for Visit * Reason Onset Date Comments Med Refill 05/26/2023 Encounter Details Date Type Department Care Team (Late st Contact Info) Description 05/26/2023 Telephone [facility] MEDICINE [address] [place] [address] Name, MD Bobby [address] [place] [address] Med Refill Social History Tobacco Use Types [...] 7.5-325 MG tablet To be sent to: [facility] - [place], [place] - [address] [place] [address] documented in this encounter Plan of Treatment Upcoming Encounters Date Type Department Care Team ([facility] st Contact Info) Description 02/10/2025 9:30 AM EST Telemedicine [facility] MEDICINE [address] [place] [address] Skye Melton RN 03/14/2025 10:00 AM EST Office Visit [facility] OPTOMETRY [address] [place] [address] Abbey Deng, KIKA [address] [place] [address] documented as of this encounter Goals Goal Patient Goal Type Associated Problems Recent Progress Patient-Stated? Author Smoking cessation General No Inga Magaña, Lucio documented as of this encounter Visit Diagnoses Not on filedocumented in this encounter Additional Health Concerns Assessment Noted Time PHQ-9 Depression Total Score: 0 03/11/20 22 11:47 AM EST documented as of this encounter Care Teams Computer Network Support Specialist Relationship Specialty Start Date End Date Name, MD Bobby [address] [place] [address] PCP - General Family Medicine 06/01/15 Inga Magaña PharmD [address] [place] [address] Pharmacist Internal Medicine 01/07/23 09/29/23 Eloina 05/13/24 documented as of this encounter
--- OUTSIDE RECORDS SUMMARY | 2025-01-30 12:00 | XMS_ITS | Encounter Summary ---
Author Organization [employer] Address [address] [place] [address] [address] [address] Care Team Providers Care Welding Machine Operator Gas Name Role Phone Name, Bobby GRADY Primary Care Provider [phone] Inga Magaña PharmD Unavailable [phone] Reason for Referral * Imaging (Routine) - Closed Specialty Diagnoses / Procedures Referred By Contac t Referred To Contact Diagnoses Other ovarian cyst, right side Procedures US Pelvis Transvaginal Monisha Linton CNM [address] [place] [address] Phone: tel: fax: [facility] [address] [place] [address] Phone: tel: fax: Referral ID Status Reason Start Date Expiration Date Visits Re quested Visits Authorized [id number] Closed 04/01/2022 09/28/2022 1 1 Encounter Details Date Type Department Care Team ([facility] st Contact Info) Description 04/01/2022 Orders Only [facility] MEDICINE [address] [place], [place] [phone] Monisha Linton CNM [address] [place], [place] [phone] Other ovarian cyst, right side (Primary Dx) [...] AM EST Telemedicine [facility] [address] [place] [address] Skye Melton RN 03/14/2025 10:00 AM EST Office Visit [facility] OPTOMETRY [address] [place] [address] Abbey Deng, OD [address] [place] [address] Scheduled Orders Name Type Priority Associated Diagnoses [...] documented as of this encounter Care Teams Welding Machine Operator Gas Relationship Specialty Start Date End Date Name, MD Bobby [address] [place] [address] PCP - General Family Medicine 06/01/15 Inga Magaña PharmD [address] [place] [address] Pharmacist Internal Medicine 01/07/23 09/29/23 Ave[place] 05/13/24 documented as of this encounter
--- OUTSIDE RECORDS SUMMARY | 2025-01-30 12:01 | XMS_ITS | Encounter Summary ---
Author Organization [employer] Address [address] [place] [address] [address] [place] [address] Care Team Providers Care Rod Finisher Name Role Phone Name, Bobby GRADY Primary Care Provider Inga Magaña PharmD Unavailable [phone] Encounter Details Date Type Department Care Team (Late st Contact Info) Description 03/05/2022 Telephone [facility] MEDICINE [address] [place] [phone] Monisha Linton CNM [address] [place] [address] Social History Tobacco Use Types Packs/Day Years [...] Info) Description 02/10/2025 9:30 AM EST Telemedicine [facility] MEDICINE [address] [place] [address] Skye Melton, HODA 03/14/2025 10:00 AM EST Office Visit [facility] OPTOMETRY [address] [place] [address] Abbey Deng, OD [address] [place] [address] documented as of this encounter Visit Diagnoses Not on filedocumented in this encounter Care Teams Rod Finisher Relationship Specialty Start Date End Date Name, MD Bobby [address] [place], [place] [phone] PCP - General Family Medicine 06/01/15 Inga Magaña, Lucio [address] [place] [address] Pharmacist Internal Medicine 01/07/23 09/29/23 Eloina 05/13/24 documented as of this encounter
--- OUTSIDE RECORDS SUMMARY | 2025-01-30 12:01 | XMS_ITS | Encounter Summary ---
Author Organization [employer] Address [address] [place] [address] Care Team Providers Care Afternoon Babysitter Name Role Phone Name, Bobby GRADY Primary Care Provider [phone] Encounter Details Date Type Department Care Team (Latest Contact Info) Description 04/29/2024 Lab Requisition [facility] - Main Lab [address] [place] [address] Yared Weaver MD [address] [place] [address], [phone] Atherosclerotic heart disease of [place] coronary artery without angina pectoris Social History [...] 5:10 AM EST Atherosclerotic heart disease of [place] coronary artery without angina pectoris BASIC METABOLIC PANEL Routine 04/29/2024 5:10 AM EST Atherosclerotic heart disease of [place] coronary artery without angina pectoris documented in this encounter Results * (ABNORMAL) Basic metabolic panel (04/29/2024 5:10 AM EST) Sodium 143 133 - 145 mmol/L LAB CHEMISTRY METHOD 04/29/2024 11:20 AM EST [facility] ([facility]) [facility] LAB Potassium 4.5 3.5 - 5.5 mmol/L LAB CHEMISTRY METHOD 04/29/2024 11:20 AM [facility] LAB Chloride 106 96 - 110 mmol/L LAB CHEMISTRY METHOD 04/29/2024 11:20 AM [facility] CO2 31 21 - 32 mmol/L LAB CHEMISTRY METHOD 04/29/2024 11:20 AM [facility] Anion Gap 6 3 - 11 LAB CHEMISTRY METHOD 04/29/2024 11:20 AM [facility] Glucose 97 70 - 100 mg/dL LAB CHEMISTRY METHOD 04/29/2024 11:20 AM [facility] BUN 34(H) 5 - 25 mg/dL LAB CHEMISTRY METHOD 04/29/2024 11:20 AM [facility] Creatinine 0.80 0.50 - 1.10 mg/dL LAB CHEMISTRY METHOD 04/29/2024 11:20 AM [facility] LAB eGFR 82 >=60 mL/min/1. 73m2 LAB CHEMISTRY METHOD 04/29/2024 11:20 AM [facility] LAB Comment:Calculation based on the Chronic Kidney Disease Epidemiology Collaboration (CKD-EPI) equation refit without adjustment for race. BUN/Creatinine Ratio 42.5 LAB CHEMISTRY METHOD 04/29/2024 11:20 AM [facility] Calcium 7.9(L) 8.5 - 10.5 mg/dL LAB CHEMISTRY METHOD 04/29/2024 11:20 AM [facility] LAB Blood Venous blood specimen / Unknown Venipuncture / Unknown 04/29/2024 5:10 AM EST 04/29/2024 9:30 AM EST us Yared Weaver MD LAB BLOOD ORDERABLES Final Resul t [facility] LAB [address] [place] [address], * (ABNORMAL) Complete blood count (04/29/2024 5:10 AM EST) [facility] WBC 18.2(H) 4.8 - 10.8 K/mcL LAB HEMETOLOGY METHOD 04/29/2024 10:30 AM [facility] LAB RBC 5.30(H) 3.80 - 4.80 M/mcL LAB HEMETOLOGY METHOD 04/29/2024 10:30 AM [facility] LAB Hemoglobin 15.0 11.5 - 16.0 g/dL LAB HEMETOLOGY METHOD 04/29/2024 10:30 AM [facility] LAB Hematocrit 48.0(H) 35.0 - 47.0 % LAB HEMETOLOGY METHOD 04/29/2024 10:30 AM [facility] LAB MCV 90.2 79.0 - 98.0 FL LAB HEMETOLOGY METHOD 04/29/2024 10:30 AM [facility] LAB MCH 28.2 27.0 - 32.0 pcg LAB HEMETOLOGY METHOD 04/29/2024 10:30 AM [facility] LAB MCHC 31.3(L) 32.0 - 37.0 g/dL LAB HEMETOLOGY METHOD 04/29/2024 10:30 AM [facility] RDW 14.7 11.0 - 15.0 % LAB HEMETOLOGY METHOD 04/29/2024 10:30 AM [facility] Platelets 238 130 - 400 K/mcL LAB HEMETOLOGY METHOD 04/29/2024 10:30 AM [facility] MPV 11.8(H) 7.0 - 11.0 FL LAB HEMETOLOGY METHOD 04/29/2024 10:30 AM [facility] NRBC 0.0 <1.0 % LAB HEMETOLOGY METHOD 04/29/2024 10:30 AM [facility] NRBC Absolute 0.00 <0.10 K/mcL LAB HEMETOLOGY METHOD 04/29/2024 10:30 AM EST [facility] LAB Blood Venous blood specimen / Unknown Venipuncture / Unknown 04/29/2024 5:10 AM EST 04/29/2024 9:30 AM EST us Yared Weaver MD LAB BLOOD ORDERABLES Final Resul t [facility] LAB [address] [place] [address], documented in this encounter Visit Diagnoses Diagnosis Atherosclerotic heart disease of [place] coronary artery without angina pectoris documented in this encounter Care Teams Afternoon Babysitter Relationship Specialty Start Date End Date Name, MD Bobby [address] [place], [place] PCP - General Internal Medicine 04/01/18 documented as of this encounter
--- OUTSIDE RECORDS SUMMARY | 2025-01-30 12:01 | XMS_ITS | Data Portability ---
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 I have reviewed and agree with the Assessment and Plan as documented by the Correctional Supervisor. We discussed the diagnostic uncertainty of [...] to call 911- verbalized understanding of instructions [email or web address] Not available 05/27/2023 10:52:57 08/31/2023 08/31/2023 Ms. [...] did a neb one hour prior to presser and shaper knitted goods arrival. VSS, SpO2 95% on RA. Correctional Supervisor on site reports wheezing b/l. Allergy [...] Ag, QL IA, respiratory specimen [address], [id number] 4 18:31:32 rapid flu (A+B) [address], [id number] 4 18:31:52 BMP, serum or plasma [address], [id number] 4 18:32:18 rapid SARS CoV 2 Ag, QL IA, respiratory specimen [address], [id number] 4 09:38:44 rapid flu (A+B) [address], [address] 4 09:37:23 rapid strep group A, throat [address], [address] 4 09:37:50 BMP, serum or plasma 2023 024 [place], [address] [place] [address], [id number] 4 09:38:18 rapid SARS CoV 2 Ag, QL IA, respiratory specimen 2023 024 [email or web address] [facility], [address] [place] [address], [id number] 4 11:19:29 rapid flu (A+B) 2023 024 [email or web address] 0 [facility], [address] [place] [address], [id number] 4 11:19:31 rapid strep group A, throat 2023 024 [email or web address] 0 [facility], [address] [place] [address], [id number] 4 11:19:33 glucose, fingerstick , blood 2023 024 [email or web address] 0 [facility], [address] [place] [address], [id number] 4 11:30:51 Referral None recorded. Procedures None recorded. Surgeries None recorded. Imaging None recorded. Medication Orders methylpredn isolone sod succ (PF) 125 mg/2 mL solution for injection 2023 024 [facility], [address] [place] [address], [id number], 4 11:53:19 doxycycline hyclate 100 mg capsule 2023 024 [facility], [address] [place] [address], [id number], 4 14:23:57 doxycycline hyclate 100 mg capsule 2023 024 [facility], [address] [place] [address], [id number], 4 11:53:19 ipratropium 0.5 mg-albutero l 3 mg (2.5 mg base)/3 mL nebulizatio n soln 2023 024 [facility], [address] [place] [address], [id number], 4 11:53:19 prednisone 10 mg tablet 2023 024 [facility], [address], [place], [id number], 4 14:23:58 magnesium sulfate 2 gram/50 mL in 0.9 % sodium chloride IV piggyback 2023 024 [facility], [address] [place] [address], [id number], 4 11:53:19 cefpodoxime 200 mg tablet 2023 024 [facility], [address] [place] [address], [id number], 4 13:59:54 prednisone 20 mg tablet 2023 024 [facility], [address] [place] [address], [id number], 4 17:38:03 prednisone 10 mg tablet 2023 024 [facility], [address] [place] [address], [id number], 4 13:59:54 prednisone 10 mg tablet 2023 024 [facility], [address] [place] [address], [id number], 4 12:00:49 prednisone 20 mg tablet [address] [facility], [address] [place] [address], [id number], 4 11:33:48 prednisone 10 mg tablet 2023 024 [email or web address] [id number], [address] [place], [id number], 4 11:18:33 albuterol sulfate 2.5 mg/3 mL (0.083 %) solution for nebulizatio n 2023 024 [email or web address] 0 Not available 4 11:19:26 prednisone 20 mg tablet 2023 024 [email or web address] 0 Not available 4 11:19:25 prednisone 20 mg tablet 2023 024 [facility], [address], [place], [id number], 4 13:43:28 Patient TargetsNo targets recorded. Patient InstructionsNo instructions recorded. Reason for Referral None Reported. Results Created Date Observation Date Name Description Value Unit Range Abnormal Flag Note LastModifiedBy Organization Detail LastModifiedTime 05/27/19 24 05/27/2023 gluco sedavid k, blood Blood Glucose: mg/dl 302 Not Available [facility] [address] [place] [address], [id number] 05/27/2023 11:19:35 05/27/19 24 05/27/2023 rapid flu (A+B) Flu negati ve Not Available [facility] [address] [place] [address], [id number] 05/27/2023 10:53:07 05/27/19 24 05/27/2023 rapid strep group A, throa t Strep negati ve Not Available [facility] [address] [place] [address], [id number] 05/27/2023 11:12:09 05/27/19 24 05/27/2023 rapid SARS CoV 2 Ag, QL IA, respi rator y speci men rapid SARS CoV 2 Ag, QL IA, respiratory specimen negati ve Not Available [facility] [address] [place] [address], [id number] 05/27/2023 10:53:06 12/24/19 24 12/24/2023 rapid flu (A+B) Flu negati ve Not Available [facility] ed [address] [place] [address], [id number] 12/24/2023 11:22:03 12/24/19 24 12/24/2023 rapid SARS CoV 2 Ag, QL IA, respi rator y speci men rapid SARS CoV 2 Ag, QL IA, respiratory specimen negati ve Not Available [facility] ed [address] [place] [address], [id number] 12/24/2023 11:22:00 Result Notes None recorded. Medical Equipment None Reported. Allergies Allergen ID Allergen Name Allergen Category Reaction Reaction Severity Criticality Documentation Date Start Date Code Code System Note Provider Name and Address Organization Details Recorded Time 4632 azithromy josephine medicatio n Not available Not available Not available 05/27/2023 80906 RxNorm Soila Langston MD [address] [place] [address],[address], [place], [address], [employer] 4 12:02:49 4633 Product containin g angiotens in-conver ting enzyme inhibitor (product) medicatio n Not available Not available Not available 05/27/2023 20371 009 SNOMED Soila Langston MD [address] [place] [address],[address], [place], [address], [employer], [employer] 4 12:02:55 4634 metformin medicatio n Not available Not available Not available 05/27/2023 6809 RxNorm Soila Langston MD [address] [place] [address],[address], [place], [address], [employer], [employer] 4 12:03:02 4635 Dilaudid medicatio n Not available Not available Not available 05/27/2023 72007 3 RxNorm AMS Soila Langston MD [address] [place] [address],[address], [place], [address], [employer], [employer] 4 12:03:32 6317 erythromy josephine medicatio n Not available Not available Not available 12/24/2023 4053 RxNorm BRANDT ROJO MD [address] [facility],[address], [place], [address], [facility], [employer] 4 11:27:47 6318 metoprolo l Not available [...] Not Available Not Available No t Available [employer] Lumens Ultra Test strips USE DIRECTED TO TEST [...] MIX AND DRINK BOTTLE DIRECTED BY [facility] t active Not Available Not Available [...] Details Last Updated DateTime 4 84 /min 46273.8 g 20 /min 98.4 [degF] 152.4 cm 98 % 98 % 137/98 mm[Hg] Not Available [employer] 4 10:52:14 Date Recorded Oxygen saturation Oxygen saturation in Arterial blood by Pulse oximetry Heart rate Body temperature Respiratory rate Systolic And Diastolic Provider Name and Address Organization Details Last Updated DateTime 4 93 % 93 % 92 /min 98 [degF] 20 /min 190/100 mm[Hg] Not Available [employer] 4 11:12:07 Date Recorded Oxygen saturation Oxygen saturation in Arterial blood by Pulse oximetry Body height Heart rate Respiratory rate Body weight Body temperature Systolic And Diastolic Provider Name and Address Organization Details Last Updated DateTime 4 95 % 95 % 165.1 cm 85 /min 18 /min 60897.6 4 g 97.4 [degF] 125/86 mm[Hg] Not Available [employer] 4 11:27:44 Date Recorded Heart rate Body weight Respiratory rate Body temperature Body height Oxygen saturation Oxygen saturation in Arterial blood by Pulse oximetry Systolic And Diastolic Provider Name and Address Organization Details Last Updated DateTime 4 96 /min 70590.6 4 g 18 /min 97.9 [degF] 165.1 cm 91 % 91 % 129/71 mm[Hg] Not Available [employer] 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 Functional Status None recorded. Mental Status None recorded. Family History Nothing Reported. Medical History No medical history recorded. Gynecological HistoryNo gynecological history recorded. 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 [id number] Zev Leger MD Main - [address] [phone] 07/26/2023 11:12:02 07/26/2023 17:20:43 Acute exacerbation of chronic obstructive pulmonary disease 070534997 J44.1 This 62-year-ol d female with COPD called [facility] because of increased dyspnea. She uses several inhalers and prednisone 5 mg daily. She doesn't qualify for home oxygen. I ordered a prednisone taper. She will follow-up with her PCP. The patient agreed with this plan. Low back pain [id number] M54.50 [id number] Dasha Eubanks MD [facility] [address] [place] [phone] 08/31/2023 11:27:40 09/01/2023 12:35:19 Acute exacerbation of chronic obstructive pulmonary disease [id number] J44.1 [id number] Santos Santoyo MD [facility] [address] [place] [phone] 10/19/2023 17:19:16 10/20/2023 09:43:42 Acute exacerbation of chronic obstructive pulmonary disease [id number] J44.1 [id number] BRANDT ROJO MD [facility] [address] [place] [phone] 12/24/2023 11:18:42 12/24/2023 14:43:17 Acute exacerbation of chronic obstructive pulmonary disease [id number] J44.1 Evaluation in the field was performed by my presser and shaper knitted goods colleague, as noted above, I provided real-time [...] showed tachypnea of 28 breaths per minute, SpO 88% on room air, and the patient [...] of the treatment, and upon returning, her SpO was 88% on room air, with her respirator y rate increasing to 30.After a lengthy discussion , the patient agreed to go to the ED for further evaluation . An [facility]. Rapid COVID and flu tests were [...] with the first dose given by the presser and shaper knitted goods. -Continue Zyrtec daily-Afte r she received the 1st duoneb, IV Solumedrol , IV Magnesium and Doxycyclin e, a second Duoneb treatment was ordered . The patient ambulated to the bathroom in the middle of the treatment, and upon returning, her SpO was 88% on room air, with her respirator y rate increasing to 30.After a lengthy discussion , the patient agreed to go to the ED for further evaluation . An [facility]. Primary care, consider__ _ Dispositio n: [...] Mendez Member ID Guarantor Name 12/24/2023 1 [facility] - DOS ON OR AFTER 2022 - DUAL ELIGIBLE - [employer] OPT[employer] AND ONE CARE (MEDICARE REPLACEMENT/ADV ANTAGE - HMO) Marita Lawrence [id number] Marita Lawrence Notes Date Note Type Note Provider Name and Address Organization Details Recorded Time 05/27/2023 text/html ROS as noted in the HPI HPI: Patient at home with known COPD. Not on oxygen at baseline. Feeling ill with increased SOB MORTAR MAN cough. O2 sat at baseline is 96% drops to 92% with exertion. .................. .................. .................. .................. .................. .................. .................. ............... CRC Nurse Triage Notes (Tashia Lazo): Comments: CRC RN DID NOT NEED FURTHER INFO .................. .................. .................. .................. .................. .................. .................. ............... Correctional Supervisor Note From Cullen Joseph: Pt caox3 [...] home. 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 Pt [...] BGL 306mg/dl (no food or insulin today) [facility] orders albuterol neb, prednisone 40mg PO, administered [...] throat except when coughing Soila Langston MD [address] [place] [address],[address], [place], [phone], [employer] 05/27/2023 12:35:05 07/26/2023 text/html ROS as noted in the HPI CRC Nurse Triage Notes (Miko Vogt): Chief Complaints: Shortness of Breath/Dyspnea PMH: Hypertension, COPD/Asthma, Diabetes, Heart Disease Allergies: Unknown Comments: [employer] verified the member's name//address and phone number. [...] treatment if needed -HODA Whyte MD [address] [facility],[address], [place], [address], [facility] - [employer] 07/30/2023 06:44:37 08/31/2023 text/html HPI: Call returned [...] in clear full sentences. 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 [facility] Reviewed home care advise, ER precautions and reasons to call back. Verified contact information and allergies. .................. .................. .................. .................. .................. .................. .................. ............... CRC Nurse Triage Notes (Tashia Lazo): Comments: CRC RN DID NEED FURTHER INFO .................. .................. .................. .................. .................. .................. .................. ............... Correctional Supervisor Note From Ben Delacruz: Smartcare visit [...] thick white mucus. consulted with [facility] Eubanks, who prescribed 40 mg of Prednisone to be given on scene with remainder of prescription called the patient's Pharmacy. Reviewed red flags for ED. patient education provided. [facility] Medication Orders: prednisone 20 mg tablet: Administered .................. .................. .................. .................. .................. .................. .................. ............... Disposition: Fulfilled Dasha Eubanks MD [address] [place] [address],[address], [place], [phone], [employer] 08/31/2023 17:40:50 10/19/2023 text/html CRC Nurse Triage Notes (Miko Vogt): Reason For Request: sob/hx COPD Chief Complaints: Shortness of Breath/Dyspnea PMH: Hypertension, COPD/Asthma, Diabetes, Heart Disease Allergies: Metoprolol Comments: [employer] verified the member's name//address and phone number. [...] emergency treatment if needed -Kiran Vogt RN Correctional Supervisor POC Test Results from Jayme Ben - ALS Rapid influenza antigen (19:05:46) Flu: - Rapid COVID antigen (19:05:52) COVID: - .................. .................. .................. .................. .................. .................. .................. ............... Correctional Supervisor Note From Ben Delacruz: Smartcare visit [...] swabs run and both negative. Consulted with [facility] Dr. Santoyo who prescribed prednisone and cefpedoxime. First dose of prednisone given on scene with remainder of script sent to pharmacy. Reviewed red flags. Pt education provided. .................. .................. .................. .................. .................. .................. .................. ............... Disposition: Reina Santos Santoyo MD [address] [facility],[address], [place], [address], [facility] [employer] 10/19/2023 23:50:40 12/24/2023 text/html ROS as noted in the HPI CRC Nurse Triage Notes (Miko Vogt): Reason For Request: Pt reporting COPD exacerbation Chief Complaints: Shortness of Breath/Dyspnea, COPD PMH: Hypertension, COPD/Asthma, Diabetes, Heart Disease Allergies: Metoprolol Comments: [employer] verified the member's name//address and phone number. [...] emergency treatment if needed -Kiran Vogt RN Correctional Supervisor Organization Information for [employer] Business Legal Name: [employer]. Address: [address] [place] [id number], Auto Customize Painter: Bk Roblero MD CLIA No.: [id number] Correctional Supervisor POC Test Results from [employer] [facility] [...] .................. .................. .................. .................. .................. .................. ............... Correctional Supervisor Note From Kal Hathaway: Dispatched to [...] pink warm and dry, good radial pulse. [facility] contacted, ordered Chem 8, IV, Solumedrol, Covid and Flu test and Duoneb. 18g IV established, R AC, lab draw preformed, ISTAT checked, results uploaded. Covid-19 and Flu test checked, both negative. Patient started on Duoneb. 125mg Solumedrol administered IV. Patient reassessed, SPO2 still high 80s on RA, still tachypneic. [facility] updated, ordered 2g Mag IV. Patient administered 2g Mag IV. Patient reassessed with no change. [facility] updated, ordered additional Duoneb. Neb administered. Patient walked about 15 steps to bathroom, became tachypneic in the 30s. [facility] updated, recommends transport to ER for further evaluation. Patient agrees with this. 911 contacted. [facility] responded. Verbal report given to [facility] Correctional Supervisor, took over patient care. Patient being transported to [facility]. SC8 clear. EOR. .................. .................. .................. .................. .................. .................. .................. ............... Disposition: Fulfilled BRANDT ROJO MD [address] [facility],[address], [place], [address], [facility] 12/24/2023 13:27:13 OBGyn Episode No OBEpisode recorded.
== END 2025-01-30 10:03 | disposition home or self-care (01) ==
LOC: HO.US 10:02
PROVIDERS: PCP Internal Medicine Geriatric Medicine; Visit Provider Nurse Practitioner Family
DX: N20.0 Calculus of kidney (principal)
CPT/HCPCS: 76775

== ENCOUNTER → 2025-01-30 10:04 | Outpatient (BNV) | payer OTHER, SELFPAY | PROVIDERS: PCP Internal Medicine Geriatric Medicine; Visit Provider Radiology Vascular & Interventional Radiology | DX: N13.2 Hydronephrosis with renal and ureteral calculous obstruction (principal) | CPT/HCPCS: 76775 ==

== ENCOUNTER 2025-02-13 11:36 | Emergency (ER) | payer OTHER, SELFPAY ==
--- NOTE | ~2025-02-13 | XR_ITS ---
EXAMINATION: XR CHEST CLINICAL INFORMATION: CP and cough COMPARISON: 01/16/2025, 01/11/2025. TECHNIQUE: Frontal view of the chest was obtained. FINDINGS: The cardiac, hilar, and mediastinal contours are normal. The lungs are clear bilaterally. No pneumothorax or effusion. No focal osseous or soft tissue abnormality. XR/XR chest 1V IMPRESSION: No active pulmonary disease. Electronically signed by: Felton Ovalle MD 02/13/2025 12:12 PM [facility]
--- NOTE | 2025-02-13 11:39 | ECG_ITS ---
Test Reason : CHEST PRESSURE/SOB Blood Pressure : */* mmHG Vent. Rate : 78 BPM Atrial Rate : 78 BPM P-R Int : 152 ms QRS Dur : 90 ms QT Int : 384 ms P-R-T Axes : 65 -47 33 degrees QTcB Int : 437 ms Sinus rhythm Left axis deviation Abnormal ECG When compared with ECG of 16-Jan-2025 19:13, No significant changes seen Referred By: Generic ED Physician Electronically Signed By: CHAPIN ELDRIDGE
[2025-02-13 11:49] VITALS: BP 134/81; PULSE 78; O2SAT 97
[2025-02-13 11:53] VITALS: BP 124/78; PULSE 77; RESP 18; O2SAT 97; BMI 27.5
--- NOTE | 2025-02-13 11:59 | ED.CHESTPAIN ---
HPI - Chest Pain General Chief Complaint: Chest Pain Stated Complaint: SUBSTERNAL CHEST PRESSURE X1H,SOB Time Seen by Provider: 02/13/25 11:49 Source: patient, EMS and old records reviewed Mode of arrival: EMS Limitations: no limitations History of Present Illness ED Provider: DR. Dietrich HPI narrative: 64 year old female past medical history significant for HTN, HLD, asthma / COPD, hypothyroidism, cardiomyopathy, CAD, DM, tobacco dependency, pulmonary nodule, IBS, MCKAY patient presented for evaluation of mid chest pain that is started since yesterday after having a coughing fit with productive cough of white frothy thick sputum, pain has been constant since yesterday, pain is localized to the mid chest feel like pressure on the mid chest, radiates to the mid back, no shortness of breath, O2 sat remained 95% on room air patient do not use supplemental oxygen for her lung underlying COPD. Actively smoking, no recent travel or prolonged immobilization. pain is constant since yesterday still there to now. Related Data Home Medications ?Medication ?Instructions ?Recorded ?Confirmed aspirin 81 mg tablet,delayed 81 mg PO BEDTIME 12/24/19 01/16/25 release atorvastatin 80 mg tablet 80 mg PO BEDTIME 12/24/19 01/16/25 carvedilol 6.25 mg tablet 6.25 mg PO BID 12/24/19 01/16/25 cetirizine 10 mg tablet 10 mg PO DAILY PRN allergies 12/24/19 01/16/25 montelukast 10 mg tablet 10 mg PO BEDTIME 12/24/19 01/16/25 omeprazole 20 mg capsule,delayed 20 mg PO BID@1630 12/24/19 01/16/25 release docusate sodium 100 mg capsule 1 cap PO BEDTIME Constipation 01/24/21 01/16/25 blood sugar diagnostic (FreeStyle #10 ea 10/07/21 05/31/24 Lite Strips) lancets 33 gauge (TRUEplus Lancets) #100 ea 10/07/21 05/31/24 oxycodone-acetaminophen 7.5 mg-325 1 tab PO Q6H PRN severe pain 06/23/22 01/17/25 mg tablet sennosides 8.6 mg tablet (senna) 8.6 mg PO BID Constipation 01/30/23 01/16/25 nebulizers 06/03/23 05/31/24 empagliflozin 10 mg tablet 10 mg PO DAILY 02/10/24 01/16/25 (Jardiance) insulin glargine 100 unit/mL (3 35 unit subcut BID 04/07/24 01/16/25 mL) subcutaneous pen (Lantus Solostar U-100 Insulin) levothyroxine 112 mcg tablet 112 mcg PO DAILY@0600 04/07/24 01/16/25 pregabalin 100 mg capsule 100 mg PO DAILY 04/07/24 01/16/25 dulaglutide 1.5 mg/0.5 mL 1.5 mg subcut WE@0900 04/21/24 01/16/25 subcutaneous pen injector (Trulicity) fluticasone propionate 50 1 spray intranasal DAILY PRN 04/21/24 01/16/25 mcg/actuation nasal Congestion spray,suspension insulin aspart U-100 100 unit/mL See Protocol subcut TIDAC 04/21/24 01/16/25 (3 mL) subcutaneous pen (Novolog FlexPen U-100 Insulin aspart) ipratropium 20 mcg-albuterol 100 2 puff inhalation BID 04/21/24 01/16/25 mcg/actuation mist for inhalation (Combivent Respimat) baclofen 10 mg tablet 10 mg PO Q8H PRN muscle spasm 12/12/24 01/16/25 fluticasone fur. 100 mcg-umeclid 1 ea inhalation DAILY 01/11/25 01/16/25 62.5 mcg-vilant 25 mcg inhalat.powder (Trelegy Ellipta) lidocaine 5 % topical patch 1 patch topical DAILY PRN Pain 01/11/25 01/16/25 pyridoxine (vitamin B6) 50 mg 50 mg PO BEDTIME 01/11/25 01/16/25 tablet pregabalin 150 mg capsule 150 mg PO BEDTIME 01/16/25 01/16/25 Previous Rx's ?Medication ?Instructions ?Recorded Ventolin HFA 90 mcg/actuation 2 puff inhalation Q4-6H PRN for 07/27/23 aerosol inhaler (albuterol sulfate) wheezing #18 grams arm brace (HANK Elbow Brace) #1 ea 08/27/23 ipratropium 0.5 mg-albuterol 3 mg 3 ml inhalation RQ4H WHILE AWAKE 04/26/24 (2.5 mg base)/3 mL nebulization PRN Shortness Of Breath/Wheezing soln #270 mL allopurinol 100 mg tablet 100 mg PO DAILY 90 days #90 tabs 10/17/24 roflumilast 500 mcg tablet 500 mcg PO DAILY #30 tabs 10/31/24 ondansetron 4 mg disintegrating 4 mg PO Q8H PRN nausea and 12/04/24 tablet vomiting 4 days #14 tabs prednisone 5 mg tablet 5 mg PO DAILY #30 tabs 12/19/24 melatonin 5 mg tablet 5 mg PO BEDTIME PRN sleep #15 tabs 01/23/25 prednisone 10 mg tablet See Taper PO DIRECTED #30 tabs 01/23/25 Allergies Allergy/AdvReac Type Severity Reaction Status Date / Time HANK Inhibitors (HANK Allergy Severe ANGIO Verified 02/13/25 11:56 INHIBITORS) EDEMA enalapril Allergy Severe Anaphylaxis Verified 02/13/25 11:56 erythromycin base Allergy Severe HIVES ALL Verified 02/13/25 11:56 (ERYTHROMYCIN BASE) OVER metformin Allergy Unknown Verified 02/13/25 11:56 metoprolol Allergy Unknown Verified 02/13/25 11:56 hydromorphone (From DILAUDID) AdvReac Severe TINGLING, Verified 02/13/25 11:56 PT DOES NOT LIKE THE FEELING MED GIVES HER Review of Systems Review of Systems: All other systems are reviewed and are negative Constitutional: Reports as per HPI and Reports no additional constitutional complaints Eyes: Reports as per HPI and Reports no additional eye complaints Reports system reviewed and no additional complaints, except as documented Cardiovascular: Reports as per HPI and Reports no additional cardiovascular complaints Respiratory: Reports as per HPI and Reports no additional respiratory complaints Gastrointestinal: Reports as per HPI and Reports no additional gastrointestinal complaints Genitourinary: Reports no additional female genitourinary complaints Musculoskeletal: Reports no additional musculoskeletal complaints Skin/Breast: Reports system reviewed and no additional complaints, except as docu Psychiatric: Reports no additional psychiatric complaints Endocrine: Reports no additional endocrine complaints Hematologic/Lymphatic: Reports no additional hematologic/lymphatic complaints Allergic/Immunologic: Reports no additional allergic/immunologic complaints Reports system reviewed and no additional complaints, except as documented and Reports Abnormal speech present PMFSH Past Medical History Medical History Chest pain History of RSV infection (03/2024) Hx of influenza (03/2024) Influenza A Asthma-COPD overlap syndrome Allergies History of back pain History of neuropathy Smokes tobacco daily Opioid dependence Nephrolithiasis Hyperlipidemia HTN (hypertension) Cardiomyopathy Myocardial infarction CAD (coronary artery disease) Cough Hypothyroidism, postsurgical Tubular adenoma Diabetes MCKAY (obstructive sleep apnea) Irritable bowel syndrome Hyperthyroidism Polycythemia Smoker Hypoxia COPD exacerbation Lesion of bronchus Tracheal anomaly Multinodular goiter Vitamin D deficiency Atelectasis Subclinical hyperthyroidism Goiter Pneumonia Pulmonary nodules COPD (chronic obstructive pulmonary disease) Surgical History History of coronary artery stent placement Hx of thyroidectomy History of thyroid surgery History of esophagogastroduodenoscopy (EGD) Hx of colonoscopy History of back surgery History of ureterostomy S/P lumpectomy, right breast History of cholecystectomy History of tonsillectomy Family History Family History Father No problems noted. Mother No problems noted. Paternal Aunt Diabetes Social History Social History Household Members: Spouse Housing: House Are you a primary youth care specialist to a significant other at home: No Do you presently have visiting nurse or other home services: Yes Alcohol intake: former Comment: declines alarm, shreyaadt to walk short distance to commode Patient Tobacco Use Status: Current everyday Tobacco user Tobacco use type: Cigarette Cigarette Packs Per Day: 0.5 Cigarettes Per Day: 20 e-Cigarette/Vaping Use: Never Used Second Hand Smoke Exposure: Yes Substance Use Type: Other Advance Directives: Yes Advance Directives on File: Yes Advance Directives Date on File: 01/24/21 Do you have a plan to hurt others: No Plan service: No Current occupational status: disabled Physical Exam Vital Signs: Vital Signs: Last Vital Signs Pulse 79 02/13/25 12:23 Resp 18 02/13/25 12:23 BP 124/78 02/13/25 11:53 Pulse Ox 97 02/13/25 11:53 O2 Del Method Room Air 02/13/25 11:53 BMI result Body Mass Index 27.5 Vital signs have been reviewed and appear to be correct. Blood pressure elevated. Heart rate normal. Respiratory rate normal. Temperature normal. Oxygen saturation normal. Appearance: Alert. Oriented X3. No acute distress. Head: Normal external exam. Normocephalic. Atraumatic. No Cummins signs noted. No raccoon eyes noted Eyes: PERRLA. EOMI. Conjunctiva and sclera normal. Eyelids normal. ENT: TM's Normal. Pharynx normal. Uvula midline. Moist mucous membranes. No trismus noted. No drooling noted. No muffled voice noted. Neck: Normal inspection. Neck supple. FROM. No adenopathy. Thyroid Normal. No meningeal signs. No neck mass noted. CVS: Normal heart rate and rhythm. Heart sound normal. No murmurs noted. Pulses normal throughout. Respiratory: No respiratory distress. Painless inspiration. Breath sounds normal. No wheezes/rales/rhonchi noted. Chest nontender. No accessory muscle usage noted or decreased air movement noted. Abdomen: Soft and nontender. Bowel sounds normal in all 4 quadrants. No distention noted. No organomegaly noted. No visible injury noted. Back: No CVA tenderness. Full range of motion noted. Skin: Skin warm and dry. Normal skin color. Normal skin turgor. No rashes/lesions/lacerations noted. Extremities: No lower extremity edema. Extremities exhibit normal range of motion. Extremities nontender. Neuro: Oriented X 3. Cranial nerve exam: II-XII are grossly intact No motor deficit. No sensory deficit. Reflexes normal. Course Reevaluation(s) Reevaluation #1: Came in for evaluation of chest pain after constant coughing, EKG shows no acute changes with negative troponin x2, patient also has a negative D-dimer to suggest pulmonary embolism. Patient in the emergency department has stable vital signs, O2 sat staple patient required no supplemental oxygen to manage her COPD. Patient is stable to be discharged home. Time: 14:48 Medications Administered Discontinued Medications Generic Name Dose Route Start Last Admin Trade Name Freq PRN Reason Stop Dose Admin Albuterol/Ipratropium 3 ml 02/13/25 12:15 02/13/25 12:20 Albuterol/Iprat 2.5/0.5mg 3 Ml Ampul.Neb INHALE 02/13/25 12:16 3 ml ONCE ONE Administration Methylprednisolone Sodium Succinate 125 mg 02/13/25 11:57 02/13/25 12:31 Methylprednisolone Sod Succ 125 Mg/2 Ml Vial IVPUSH 02/13/25 11:58 125 mg ONCE ONE Administration Medical Decision Making Differential Diagnosis Differential Diagnoses: The differential diagnosis associated with the presentation includes ( COPD exacerbation, pneumonia, pneumothorax, ACS, myofascial pain, costochondritis.) Admission/Observation Consideration of admission/observation: Escalation of care including admission/observation considered Lab Data MDM Lab Attestation statement: I reviewed the patient's lab results. 02/13/25 12:14 02/13/25 12:14 Labs: Lab Results 02/13/25 02/13/25 Range/Units 12:14 14:36 WBC 10.3 (4.8-10.8) X10*3/uL RBC 5.87 H (4.20-5.50) X10*6/uL Hgb 17.0 H (12.0-16.0) g/dl Hct 53.1 H (37.0-47.0) % MCV 90.5 (80.0-98.0) fL MCH 29.0 (27.0-33.0) pg MCHC 32.0 (31.0-35.0) g/dl RDW 15.5 (11.0-16.0) % Plt Count 252 (160-400) X10*3/uL MPV 10.0 (9.4-12.3) fL Immature Gran % (Auto) 1.0 H (0.0-0.4) % Neut % (Auto) 78.7 H (45-73) % Lymph % (Auto) 17.3 L (20-40) % [place] % (Auto) 2.4 (2-11) % Eos % (Auto) 0.1 (0-4) % Baso % (Auto) 0.5 (0-2) % Lymph # (Auto) 1.8 (1.2-4.9) X10*3/uL [place] # (Auto) 0.3 (0.1-1.2) X10*3/uL Eos # (Auto) 0.0 (0.0-0.4) X10*3/uL Baso # (Auto) 0.1 (0.0-0.2) X10*3/uL Abs Immat Gran (auto) 0.10 H (0.00-0.03) X10*3/uL Absolute Neuts (auto) 8.1 (2.0-8.3) x10*3/uL Absolute Nucleated RBC 0.000 (0.0-0.012) X10*3/uL Nucleated RBC % (auto) 0.0 (0.0-0.2) /100WBC D-Dimer High Sensitivty < 150 NG/ML Sodium 142 (135-145) mmol/L Potassium 3.8 (3.3-5.1) mmol/L Chloride 112 H (96-108) mmol/L Carbon Dioxide 22 (22-29) mmol/L Anion Gap 12 (12-20) BUN 12 (9-16) mg/dL Creatinine 0.65 (0.5-1.4) mg/dL Estim Creat Clear Calc 87.4 Estimated GFR > 60 Random Glucose 167 H (60-115) mg/dL Lactic Acid 1.0 (0.5-2.0) mmol/L Calcium 8.1 L (8.4-10.2) mg/dL Total Bilirubin 0.5 (0.0-1.0) mg/dL Direct Bilirubin 0.2 (0.0-0.5) mg/dL AST 29 (5-31) U/L ALT 32 H (0-31) U/L Alkaline Phosphatase 62 (39-117) U/L Troponin I High Sens 5.5 (<3.5-17.0) ng/L Total Protein 6.7 (6.5-8.0) g/dL Albumin 3.9 (3.5-5.0) g/dL Lipase 55 (8-78) U/L Urine Color Yellow Urine Appearance Clear Urine pH 5.5 (5.0-9.0) Ur Specific [place] >= 1.030 H (1.005-1.025) Urine Protein Negative (Neg-Trace) mg/dL Urine Glucose (UA) >=1000 H (Negative) mg/dL Urine Ketones Negative (Negative) mg/dL Urine Blood Negative (Negative) Urine Nitrite Negative (Negative) Ur Leukocyte Esterase Negative (Negative) Influenza Type A (PCR) NEGATIVE (Negative) Influenza Type B (PCR) NEGATIVE (Negative) RSV RNA Qual (PCR) NEGATIVE (Negative) SARS-CoV-2 RNA (RT-PCR) NEGATIVE (Negative) Independent Interpretation I performed an independent interpretation of an: Plain X-Ray ( chest: No acute intrathoracic pathology.) Radiology Impression Discussion of test interpretation with radiology: I have reviewed the radiologist's reading. Discharge Plan Discharge Clinical Impression: Chest pain, Anterior chest wall pain Patient Disposition: Home, Self-Care Instructions: Chest Wall Pain (ED) Prescriptions: No Action albuterol sulfate [Ventolin HFA] 90 mcg/actuation HFA aerosol inhaler 2 puff inhalation Q4-6H PRN (Reason: for wheezing) Qty: 18 11RF allopurinol 100 mg tablet 100 mg PO DAILY 90 Days Qty: 90 1RF roflumilast 500 mcg tablet 500 mcg PO DAILY Qty: 30 11RF prednisone 5 mg tablet 5 mg PO DAILY Qty: 30 3RF docusate sodium 100 mg capsule 1 cap PO BEDTIME insulin aspart U-100 [Novolog FlexPen U-100 Insulin] 100 unit/mL (3 mL) insulin pen See Protocol subcut TIDAC Protocol: Insulin Correction Scale Less than or equal to 110 ---- Give (units): 0 111 to 150 Give (units): 0 151 to 200 Give (units): 2 201 to 250 Give (units): 4 251 to 300 Give (units): 6 301 to 350 Give (units): 8 Greater than 350 Give (units): 10 Call MD if Blood Glucose > : 350 Combivent Respimat 20-100 mcg/actuation mist 2 puff INHALATION BID Trulicity 1.5 mg/0.5 mL pen injector 1.5 mg subcut WE@0900 fluticasone propionate 50 mcg/actuation [place],Suspension 1 spray INTRANASAL DAILY PRN (Reason: Congestion) Rx Instructions: administer into each nostril ipratropium-albuterol 0.5 mg-3 mg(2.5 mg base)/3 mL Solution For Nebulization 3 ml inhalation RQ4H WHILE AWAKE PRN (Reason: Shortness Of Breath/Wheezing) Qty: 270 0RF pregabalin 150 mg capsule 150 mg PO BEDTIME prednisone 10 mg tablet See Taper PO DIRECTED Qty: 30 0RF Taper: Prednisone 40 mg daily for 3 Days and 0 Hour 30 mg daily for 3 Days and 0 Hour 20 mg daily for 3 Days and 0 Hour 10 mg daily for 3 Days and 0 Hour Rx Instructions: see taper instructions melatonin 5 mg tablet 5 mg PO BEDTIME PRN (Reason: sleep) Qty: 15 0RF sennosides [senna] 8.6 mg Tablet 8.6 mg PO BID insulin glargine [Lantus Solostar U-100 Insulin] 100 unit/mL (3 mL) insulin pen 35 unit SUBCUT BID Rx Instructions: PER PATIENT, MAY REQUIRE HIGHER DOSES WHEN ON STEROIDS levothyroxine 112 mcg tablet 112 mcg PO DAILY@0600 pregabalin 100 mg capsule 100 mg PO DAILY ondansetron 4 mg tablet,disintegrating 4 mg PO Q8H PRN (Reason: nausea and vomiting) 4 Days Qty: 14 0RF Trelegy Ellipta 100-62.5-25 mcg blister with device 1 ea INHALATION DAILY lidocaine 5 % adhesive patch,medicated 1 patch topical DAILY PRN (Reason: Pain) Rx Instructions: leave on most painful area for up to 12 hrs pyridoxine (vitamin B6) 50 mg tablet 50 mg PO BEDTIME omeprazole 20 mg capsule,delayed release(DR/EC) 20 mg PO BID@1630 aspirin 81 mg tablet,delayed release (DR/EC) 81 mg PO BEDTIME carvedilol 6.25 mg tablet 6.25 mg PO BID atorvastatin 80 mg tablet 80 mg PO BEDTIME Protocol: Hold for SBP< HOLD for SBP < : 90 montelukast 10 mg tablet 10 mg PO BEDTIME cetirizine 10 mg tablet 10 mg PO DAILY PRN (Reason: allergies) (DME) lancets [TRUEplus Lancets] 33 gauge misc See Rx Instructions .ROUTE TID Qty: 100 Rx Instructions: As directed (DME) FreeStyle Lite Strips Strip See Rx Instructions .ROUTE TID Qty: 10 Rx Instructions: As directed oxycodone-acetaminophen 7.5-325 mg tablet 1 tab PO Q6H PRN (Reason: severe pain) (DME) nebulizers Misc See Rx Instructions .Route Rx Instructions: As directed (DME) HANK Elbow Brace Misc See Rx Instructions .Route Qty: 1 0RF Rx Instructions: As directed Jardiance 10 mg tablet 10 mg PO DAILY baclofen 10 mg tablet 10 mg PO Q8H PRN (Reason: muscle spasm) Referrals: Name,MD Bobby [Primary Care Provider, Internal Medicine] Print Language: Vietnamese
[2025-02-13 12:19] LABS: MANUAL DIFF FLAG NO
[2025-02-13] MEDS: Albuterol/Iprat 2.5/0.5MG 3 ML AMPUL.NEB INHALE ×2 (12:20→15:30)
[2025-02-13 12:23] VITALS: PULSE 79; RESP 18; O2SAT 95
[2025-02-13 12:25] LABS: Hematocrit 53.1 % (37.0-47.0); Hemoglobin 17.0 g/dl (12.0-16.0); Imm Gran Abs Auto 0.10 X10*3/uL (0.00-0.03); Imm Gran Pct Auto 1.0 % (0.0-0.4); Lymphocytes Absolute Auto 1.8 X10*3/uL (1.2-4.9); Mean Corpuscular HGB Conc 32.0 g/dl (31.0-35.0); Mean Corpuscular Hemoglobin 29.0 pg (27.0-33.0); Mean Corpuscular Volume 90.5 fL (80.0-98.0); NRBC Abs Auto 0.000 X10*3/uL (0.0-0.012); NRBC Pct Auto 0.0 /100WBC (0.0-0.2); Platelet Count 252 X10*3/uL (160-400); Red Blood Count 5.87 X10*6/uL (4.20-5.50); White Blood Count 10.3 X10*3/uL (4.8-10.8)
[2025-02-13 12:34] LABS: D Dimer High Sensitivity < 150 NG/ML
[2025-02-13 12:35] LABS: Alanine Aminotransferase 32 U/L (0-31); Albumin Level 3.9 g/dL (3.5-5.0); Alkaline Phosphatase 62 U/L (39-117); Anion Gap 12 (12-20); Aspartate Amino Transferase 29 U/L (5-31); Blood Urea Nitrogen 12 mg/dL (9-16); Calcium 8.1 mg/dL (8.4-10.2); Carbon Dioxide 22 mmol/L (22-29); Chloride 112 mmol/L (96-108); Creatinine Clr Calc Pharmacy 87.4; Estimated Glomerular Filt Rate > 60; Lipase 55 U/L (8-78); Potassium 3.8 mmol/L (3.3-5.1); Sodium 142 mmol/L (135-145); Total Protein 6.7 g/dL (6.5-8.0)
[2025-02-13 12:46] LABS: Troponin-I High Sensitivity 5.5 ng/L (<3.5-17.0)
[2025-02-13 12:59] LABS: Resp Syncy Virus RNA Qual PCR NEGATIVE (Negative); SARS COV2 PCR INHOUSE NEGATIVE (Negative)
[2025-02-13 14:46] LABS: Appearance Urine Clear; Glucose Urine UA >=1000 mg/dL (Negative); PH 5.5 (5.0-9.0); Specific Gravity - Urine >= 1.030 (1.005-1.025); UMIC TRIGGER UACC YES
[2025-02-13 15:04] LABS: Troponin-I High Sensitivity 3.9 ng/L (<3.5-17.0)
[2025-02-13 15:31] VITALS: PULSE 80; RESP 16; O2SAT 95
--- NOTE | 2025-02-13 15:58 | PC.NURSE ---
pt given oliver kiki , wants po trial before leaving
[2025-02-13 16:20] VITALS: BP 115/82; PULSE 80; RESP 16; TEMP -17.7; TEMP 0; O2SAT 96
== END 2025-02-13 16:21 | disposition home or self-care (01) ==
PROVIDERS: Emergency Provider Emergency Medicine; PCP Internal Medicine Geriatric Medicine
DX: R07.89 Other chest pain (principal); J44.9 Chronic obstructive pulmonary disease, unspecified; I10 Essential (primary) hypertension; F17.210 Nicotine dependence, cigarettes, uncomplicated; Z03.818 Encounter for observation for suspected exposure to other biological agents ruled out; Z79.899 Other long term (current) drug therapy
CPT/HCPCS: 36415; 71045; 80048; 80076; 81001; 83605; 83690; 84484; 85025; 85379; 87040; 87637; 93005; 94640; 99284; J2919

== ENCOUNTER → 2025-02-13 11:39 | Outpatient (BNV) | payer OTHER, SELFPAY | PROVIDERS: Emergency Provider Emergency Medicine; PCP Internal Medicine Geriatric Medicine; Visit Provider Internal Medicine | DX: R94.31 Abnormal electrocardiogram [ECG] [EKG] (principal); R07.89 Other chest pain; R06.02 Shortness of breath | CPT/HCPCS: 93010 ==

== ENCOUNTER → 2025-02-13 11:57 | Outpatient (BNV) | payer OTHER, SELFPAY | PROVIDERS: Emergency Provider Emergency Medicine; PCP Internal Medicine Geriatric Medicine; Visit Provider Radiology Diagnostic Radiology | DX: R07.9 Chest pain, unspecified (principal); R05.9 Cough, unspecified | CPT/HCPCS: 71045 ==